=== PATIENT | female | born 1935 | race Caucasian/White ===

== ENCOUNTER 2020-01-03 11:01 | Inpatient (IN) | payer MEDICARE, OTHER, SELFPAY ==
[2019-11-11 13:47] VITALS: BMI 29.4
[2020-01-03] VITALS (16 sets, daily range): BP systolic 145–177; BP diastolic 61–92; PULSE 69–97; RESP 14–26; TEMP 36.8; O2SAT 92–99; BMI 31.4; BMI 30.2; BMI 30.3
--- NOTE | 2020-01-03 11:11 | RAD_ITS ---
STUDY: X-RAY CHEST REASON FOR EXAM: Female, 84 years old. STEMI code pt -- diagnosed with bronchitis on 12-30-19. CP started last night TECHNIQUE: Single AP portable view of the chest. COMPARISON: 04/28/2014 FINDINGS: The lungs are clear and expanded. There is no demonstrated pleural abnormality. Normal size heart. Normal mediastinum and puja. Normal visualized pulmonary arteries. Normal visualized aortic arch and descending thoracic aorta. Normal visualized thoracic spine. Normal visualized ribs, clavicles, and shoulders. There is no demonstrated abnormality of the visualized soft tissue structures of the upper abdomen. RAD/Chest 1 View (Portable) IMPRESSION: Normal x-ray examination of the chest. Electronically Signed: Kenney Bautista DO at 11:36 EST Tel , Service support ,
--- NOTE | 2020-01-03 11:11 | EKG12_ITS ---
Test Reason : CP Blood Pressure : / mmHG Vent. Rate : 075 BPM Atrial Rate : 075 BPM P-R Int : 170 ms QRS Dur : 110 ms QT Int : 442 ms P-R-T Axes : 077 062 -46 degrees QTc Int : 493 ms Normal sinus rhythm Incomplete right bundle branch block Inferior infarct , possibly acute ACUTE HI / STEMI Consider right ventricular involvement in acute inferior infarct Abnormal ECG Confirmed by JOSE RIVERA, JHONATAN ([id number]), editor department URIEL CUEVAS ([id number]) on 01/05/2020 10:12:26 AM Referred By: VERA Confirmed By:JHONATAN GARCIA MD
--- NOTE | 2020-01-03 11:12 | ED.DCSUM_ITS ---
History of Present Illness Chief Complaint: Chest Pain Informant: Patient Onset: Days Context: Gradual Onset Timing: Intermittent Current Severity: Mild Maximum Severity: Severe Narrative: The patient presents to the emergency department with chest pain. 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 She also has history of diabetes and and prior stroke. She states that she is had some upper respiratory illness for the past week. She was started on amoxicillin on Sunday. She states that she still had cough and some mild shortness of breath. Over the past 24 hours, she is began to have chest pain. She describes it as substernal and will radiate to both arms. She did use an albuterol inhaler yesterday which seemed to make her pain much worse. She states that now, she just has a very mild twinge in her central chest. She denies nausea. She states she is otherwise been in her normal state of health. Prior similar symptoms: No Recent Illness/Hospitalization: No Past Medical History - Allergies and Home Meds Allergies/Adverse Reactions: Allergies codeine Adverse Reaction (Verified 01/03/20 11:06) Nausea/Vom/Diarrhea Prior records reviewed: Yes Past Medical History: - - Diabetes, prior stroke, coronary vascular disease Surgical History: noncontributory Smoking Status: Never smoker Review of Systems General: Reports: Fever Eyes: Denies: Visual changes - bilaterally, Diplopia ENT: Denies: Rhinorrhea, Sore throat Cardiovascular: Reports: Chest pain Respiratory: Reports: Dyspnea, Cough Gastrointestinal: Reports: Nausea Genitourinary: Denies: Dysuria, Hematuria, Frequency Musculoskeletal: Denies: Back pain, Extremity Pain Skin: Denies: Rash, Wounds Neurological: Denies: Headache, Weakness, Numbness Physical Exam Vital Signs/Narrative: Vital Signs Temp Pulse Resp BP Pulse Ox 01/03/20 11:02 98.2 F 91 18 147/72 H 96 Inital Vital Signs reviewed: Yes General: Well nourished, Well developed, No Acute Distress Head: Normocephalic, Atraumatic Eyes: Perrl, EOMI ENT: Moist mucous membranes, No rhinorrhea Neck: Supple, Nontender Cardiovascular: Regular rate, Regular rhythm, No murmurs Respiratory: No distress, Chest nontender, Wheezing Abdomen: Soft, Nontender, Nondistended, Normal bowel sounds Back: Nontender, Normal Inspection Extremities: Nontender, No edema Skin: Normal color, No rash Neurological: Alert, Oriented x3, Cranial nerves II-XII grossly intact, Normal Strength, Normal Sensation Psychological: Normal affect, Normal Mood Diagnostic/Tx/Re-eval - Medical Decision Making EKG was obtained immediately on patient arrival. She only described her chest pressure as a 1. She does have inferior elevation with Q waves in 3 and aVF. There is also some reciprocal depression in the high lateral leads. The STEMI was activated immediately once I reviewed the EKG. STEMI protocol was instituted. The patient was given heparin, aspirin, and Brilinta. She rated her pain as a 2 out of 10, but given the inferior changes nitro was held. I was able to send the EKGs immediately to Dr. Noel, house painting instructor. He agrees with plan. The patient will be taken to the [facility] for diagnostic catheterization and potential intervention. The patient is agreeable with this plan of care. Impression 1. Acute ST elevation myocardial infarction - Critical Care Time Critical care time (excluding procedures): 30-74 minutes, Discussing w/Patient &/or Family/Inspector Bicycle, Discussing w/Consultants, Arranging Admission or Transfer, Performing Direct Patient Care at Bedside ED Disposition - Plan for ED Patient: Disposition: Acute Care Hospital [facility]
[2020-01-03] MEDS: TICAGRELOR 90 MG TABLET 180 MG PO (11:17)
[2020-01-03] MEDS: Heparin Injection (Vial) 5,000 UNIT/ML VIAL 4000 UNIT IV (11:17)
[2020-01-03] MEDS: Aspirin 81 MG TAB.CHEW 324 MG PO (11:17)
[2020-01-03 11:29] LABS: Absolute Lymphocyte Count 2.39 X10^3/uL (0.83-4.51); Absolute Neutrophil Count 6.2 X10^3/uL (2.0-7.7); Basophil# 0.03 X10^3/uL; Basophil% 0.3 % (0-1); Eosinophil# 0.02 X10^3/uL; Eosinophils% 0.2 % (0-5); Hematocrit 38.7 % (37-47); Hemoglobin 12.8 g/dL (12.0-15.0); Lymphocyte # 2.39 X10^3/ul (4.0); Lymphocyte % 26.3 % (19-41); Mean Corp Hgb Conc 33.1 g/dL (32-36); Mean Corpuscular Hgb 29.8 pg (27.0-32.0); Mean Corpuscular Volume 90.2 fL (81-99); Mean Platelet Vol. 11.1 fl (6.2-12.0); Monocyte# 0.48 X10^3/uL; Monocyte% 5.3 % (0-10); NRBC Flagged by Analyzer 0 % (0-5); Neutrophil # 6.15 X10^3/uL (2.7-7.7); Neutrophil % 67.7 % (47-70); Platelet Count 279 K/mm3 (150-450); RBC Distribution Width CV 13.2 % (11.6-14.6); RBC Distribution Width SD 43.9 fl (35.1-43.9); Red Blood Count 4.29 M/mm3 (4.2-5.4); White Blood Count 9.1 K/mm3 (4.4-11.0)
--- NOTE | 2020-01-03 11:30 | CM.ED ---
SOCIAL WORK REASON FOR REFERRAL: STEMI ALERT RESPONDED TO STEMI ALERT. INTRODUCED ROLE TO PATIENT'S SON-IN-LAW OUTSIDE OF ROOM. DAUGHTER IN ROOM WITH PATIENT AND NURSING. SUPPORT PROVIDED. WILL REMAIN AVAILABLE FOR NEEDS.
[2020-01-03 11:59] LABS: International Normalized Ratio 1.2; Prothrombin Time (Protime)PT. 14.7 SECONDS (11.7-14.9)
[2020-01-03 12:08] LABS: Anion Gap 9 (5-15); BUN 37 mg/dL (7-18); BUN/Creat Ratio 24.3 RATIO (10-20); Calcium,Total 9.1 mg/dL (8.5-10.1); Chloride 107 mmol/L (98-107); Creatinine, Serum 1.52 mg/dL (0.55-1.02); EST Glomerular Filtration Rate 35 mL/min (>60); Est Glom Filt Rate - Afr Amer 42 mL/min (>60); Estimated Creatinine Clearance 22.57 ml/min; Glucose 286 mg/dL (74-106); Sodium Level 139 mmol/L (136-145)
--- NOTE | 2020-01-03 12:50 | ECHOCS_ITS ---
Reason For Study: s/p OH Procedure This was a 2D Doppler, Color Flow transthoracic echocardiogram. The study was technically difficult. Contrast injection was performed. Exam performed portable in ICU/CCU. Left Ventricle Normal LV size. Moderate segmental systolic dysfunction (see wall motion). The estimated ejection fraction is 30 %. Diastolic function is indeterminate. Posterior-Basal: Hypokinetic. Infero-Basal: Akinetic. Basal inferoseptal: Akinetic. Mid-Anterior : Hypokinetic. Mid-Lateral : Hypokinetic. Mid- Posterior: Akinetic. Mid-Inferior: Akinetic. Mid-inferoseptal : Akinetic. Anterior Era : Hypokinetic. Inferior Era : Dyskinetic. Lateral Era : Hypokinetic. Septal Era : Dyskinetic. Right Ventricle Normal RV size. Normal systolic function. Atria The left atrium is mildly enlarged. Normal right atrium. No doppler evidence for ASD. Mitral Valve There is no mitral annular calcification. Normal mitral valve. Moderate (2+) mitral valve insufficiency. Tricuspid Valve Normal tricuspid valve. Trivial tricuspid valve insufficiency. Unable to estimate RV systolic pressure/pulmonary artery pressure due to technically difficult study. Aortic Valve Trisinus/trileaflet aortic valve. Mild focal aortic valve calcification. Pulmonic Valve The pulmonic valve is not well visualized. Great Vessels Normal sized aortic root. Pericardium/Pleural No pericardial effusion. Medication Diluted definity 6ml given slow IV push to enhance endocardial definition. MMode/2D Measurements & Calculations LVIDd: 4.4 cm IVSd: 1.0 cm Ao root diam: 2.6 cm LVIDs: 3.3 cm LVPWd: 0.85 cm RVDd: 2.1 cm FS: 25.7 % LAV(MOD-bp): 34.3 ml LVAd ap4: 24.7 cm2 SV(MOD-sp4): 25.3 ml LAV(MOD-bp) Indexed: 19.4 ml/m2 EDV(MOD-sp4): 73.3 ml LAV(MOD-sp2): 36.0 ml EDV(sp4-el): 74.6 ml LAV(MOD-sp4): 32.0 ml LVAs ap4: 18.2 cm2 ESV(MOD-sp4): 48.1 ml ESV(sp4-el): 50.1 ml EF(MOD-sp4): 34.5 % EF(sp4-el): 32.8 % SV(sp4-el): 24.4 ml LA A4 area: 13.6 cm2 LA dimension(2D): 3.7 cm RA A4 area: 9.5 cm2 Doppler Measurements & Calculations MV E max kyaw: 81.5 cm/sec Lat Peak E' Kyaw: 5.8 cm/sec Med Peak E' Kyaw: 4.1 cm/sec MV A max kyaw: 107.7 cm/sec E/E' lat: 14.0 E/E' med: 19.7 MV E/A: 0.76 Ao V2 max: 130.6 cm/sec LV V1 max: 94.1 cm/sec PA V2 max: 69.6 cm/sec Ao max P.8 mmHg LV V1 max P.5 mmHg Ao V2 mean: 84.5 cm/sec Ao mean P.2 mmHg Ao V2 VTI: 26.4 cm Interpretation Summary The study was technically difficult. Contrast injection was performed. Moderate segmental systolic dysfunction (see wall motion). The estimated ejection fraction is 30 %. The left atrium is mildly enlarged. Moderate (2+) mitral valve insufficiency. Trivial tricuspid valve insufficiency. Mild focal aortic valve calcification. Unable to estimate RV systolic pressure/pulmonary artery pressure due to technically difficult study. Diastolic function is indeterminate. Ordering Physician: Gomez Noel Referring Physician: Siena Warren Performed By: Myriam Hroton, MARIAH, RVT
--- NOTE | 2020-01-03 12:53 | CON.PCM_ITS ---
Reason for Consult Date of Consultation: 01/03/20 Reason for Consultation: ACS History of Present Illness: The patient presents to the emergency department with chest pain. Patient is an 84-year-old female with history of prior DC 30 years ago treated with angioplasty. She also has history of diabetes and and prior stroke. She states that she is had some upper respiratory illness for the past week. She was started on amoxicillin on Sunday. She states that she still had cough and some mild shortness of breath. Over the past 24-48 hours, she began to have chest pain. She describes it as substernal and will radiate to both arms. She did use an albuterol inhaler yesterday which seemed to make her pain much worse. She states that now, she just has a very mild twinge in her central chest. She denies nausea. She states she is otherwise been in her normal state of health. EKG done in the emergency room revealed Q waves in III and aVF along with ST elevation. It was felt that patient was presenting late with acute ST elevation DC but due to ongoing chest pain that was about 2/10 in intensity she was evaluated and brought emergently to the cardiac Clinical Interviewer for coronary angiography. Because of acute on chronic kidney disease LV gram was not done. Coronary angiography revealed multivessel coronary artery disease with MARTIN-3 flow in all the vessels. Review of systems: All systems reviewed. All else is negative except in HPI. Past Medical History Allergies/Adverse Reactions: Allergies codeine Adverse Reaction (Verified 01/03/20 11:06) Nausea/Vom/Diarrhea Home Medications: Ambulatory Orders Medication Instructions Recorded Allopurinol [Zyloprim] 100 mg PO DAILYCM 04/28/14 Amlodipine [Norvasc] 10 mg PO DAILY 04/28/14 Lisinopril [Zestril] 40 mg PO DAILY 04/28/14 Clopidogrel Bisulfate [Plavix] 75 mg PO DAILY #30 tab 05/12/14 Carvedilol 6.25 mg PO BID 01/03/20 Insulin Aspart [Novolog Flexpen units SUBCUT TIDCM 01/03/20 ([facility])] Insulin Glargine,Hum.rec.anlog 9 unit SQ DAILY 01/03/20 [Basaglar Kwikpen U-100] [place]-3 Fatty Acids/Fish Oil 2 ea PO DAILY 01/03/20 [[place] 3 1,000 mg Softgel] Past Medical History (Chronic Problems): Chronic Problems (Last Updated 11/11/19 @ 13:42 by Marika Lima) Intracranial meningioma (Chronic) HLD (hyperlipidemia) (Chronic) Type II diabetes mellitus (Chronic) Benign hypertension (Chronic) Surgical History: noncontributory Smoking Status: Former smoker Objective: Vital Signs Temp Pulse Resp BP Pulse Ox 98.2 F 77 20 H 152/87 H 98 01/03/20 11:02 01/03/20 11:38 01/03/20 11:38 01/03/20 11:38 01/03/20 11:38 Oxygen Flow Rate (L/min) 2 Oxygen Delivery Method Nasal Cannula Weight: 171 lb 15.369 oz Body Mass Index (BMI) 31.4 Finger Stick Blood Glucose 220 General: Awake, Alert, Oriented x 3 HEENT: Atraumatic Oral: Moist Mucosa Neck: Supple Lungs: - - Bibasal crackles. Coarse breath sounds bilaterally Cardiovascular: Regular Rhythm Abdomen: Soft Skin: No Rashes Psych/Mental Status: Appropriate 01/03/20 11:15: WBC 9.1, RBC 4.29, Hgb 12.8, Hct 38.7, MCV 90.2, MCH 29.8, MCHC 33.1, Plt Count 279, MPV 11.1, Immature Gran % (Auto) 0.200, Neut % (Auto) 67.7, Lymph % (Auto) 26.3, [place] % (Auto) 5.3, Eos % (Auto) 0.2, Baso % (Auto) 0.3, Absolute Neuts (auto) 6.2, Nucleated RBC % 0 01/03/20 11:15: PT Cancelled, INR Cancelled, APTT Cancelled 01/03/20 11:15: Sodium Cancelled, Potassium Cancelled, Chloride Cancelled, Carbon Dioxide Cancelled, Anion Gap Cancelled, BUN Cancelled, Creatinine Cancelled, Est GFR (MDRD) Af Amer Cancelled, Est GFR (MDRD) Non-Af Cancelled, BUN/Creatinine Ratio Cancelled, Glucose Cancelled, Calcium Cancelled, Troponin I Cancelled 01/03/20 11:41: PT 14.7, INR 1.2, APTT 181.0 H* 01/03/20 11:41: Sodium 139, Potassium 4.0, Chloride 107, Carbon Dioxide 23.0, Anion Gap 9, BUN 37 H, Creatinine 1.52 H, Est GFR (MDRD) Af Amer 42 L, Est GFR (MDRD) Non-Af 35 L, BUN/Creatinine Ratio 24.3 H, Glucose 286 H, Calcium 9.1, Troponin I 4.620 H* Rhythm: EKG: ECHO: Stress Test: Cardiac Cath: PCI: CT Surgery: Holter monitor: EPS: PPM: CXR: Chest CT Scan: Assessment/Plan 1. Acute coronary syndrome: EKG was suggestive of late presentation ST elevation DC. There is MARTIN-3 flow in all of patient's coronary arteries with multivessel obstructive coronary artery disease. Troponin was 4.6. Due to the location of the stenoses and the fact that there is MARTIN-3 flow in all the vessels we felt that patient will be better served with CABG rather than multivessel PCI unless the CT surgeon feels that patient is at prohibitive risk. At this point it will be reasonable to treat her medically and transfer her to a center that has an open heart surgery program. Patient did get Brilinta in the emergency room. Plavix is listed as medication that she is on. We will keep her on aspirin and add a statin. She is already on a beta-shravan and an ISABELLA inhibitor. 4 hours after the TR band is off she should be started on a weight-based heparin drip. 2. Shortness of breath: Patient has orthopnea. We are checking a 2D echo. I will give her 1 dose of Lasix IV as she has crackles. We will be cautious because of her acute on chronic kidney insufficiency. She may need nebulizers and treatment of her bronchitis as well. We will request the hospitalist service help for this.
[2020-01-03] MEDS: Furosemide 40 MG/4 ML Vial IV (13:20)
--- NOTE | 2020-01-03 13:23 | CL.D_ITS ---
Patient Name: CONCHA WOODWARD I Study Date: 01/03/2020 Performing: Maty Noel MD Ht: 62 inches 157 cm : 1935 Wt: 172.2 lbs 78 kg Age: 84 Gender: female BSA: 1.79 PROCEDURE(S) PERFORMED [id number] CLINICAL PROFILE AND INDICATIONS Indications: ACS > 24 hrs Heart Failure: None Stress/Imaging Stress/Image Study Performed: No CAD Presentations: STEMI. Symptom onset Date/Time: 01/01/20 Time Not Available CONCLUSIONS Multivessel CAD RECOMMENDATIONS 2D Echo and Surgery consult for coronary revascularization DESCRIPTION OF PROCEDURE The patient arrived to the procedure lab. The risks and benefits of the procedure as well as a full d escription of our services here and current unavailability of surgical backup were fully explained to the patient and/or their significant other prior to the catheterization. The Timeout was completed, verifying the correct patient and procedure. The patient's procedural site was prepped and draped in the usual fashion. Local anesthetic was given subcutaneously to right radial region with Lidocaine 2% . Using a modified Seldinger technique, arterial access was obtained via the right radial artery, a 6 Fr sheath was inserted. Left Coronary Artery selective angiography was performed in multiple views u sing a 5 Fr. JL3.5 catheter. Right Coronary Artery selective angiography was then performed in multip le views using a 6 Fr. JR 4 guide catheter.The arterial sheath was pulled and a TR Band was applied f or hemostasis CORONARY ANGIOGRAPHY DOMINANCE: Right Dominant LEFT HEART ASSESSMENT Left Ventricular Ejection Fraction: Not assessed LEFT MAIN: 30 % Stenosis LEFT ANTERIOR DESCENDING ARTERY: OSTIAL LAD: 80 % Stenosis MID LAD: 60-70 % Stenosis CIRCUMFLEX ARTERY: OSTIAL CIRC: 70 % Stenosis MID CIRC: 80 % Stenosis RIGHT CORONARY ARTERY: PROX RCA: 80 % Stenosis DISTAL RCA: 80-90 % Stenosis RT PLV: 80-90 % Stenosis COMPLICATIONS No Complications PROCEDURE MEDICATIONS Versed 1 mg IV Fentanyl 50 mcg IV Oxygen: 2 L/min via nasal cannula Heparin given IA 01/03/2020 12:16:01 Verapamil 2.5mg, Ntg 100mcgs, 3000 units of Heparin given IA 01/03/2020 12:16:01 IV Bolus: .9 NaCl 200 ml total given in ER 01/03/2020 12:48:05 SUMMARY OF HEMODYNAMIC DATA Time AIR REST ECG 11:59:15 AO 136/73 (102) SA 12:17:12 Signed By Maty Noel MD On 01/03/2020 13:22:07 Maty Noel MD
[2020-01-03 15:06] LABS: Bedside Glucose 190 mg/dL (70-110)
--- NOTE | 2020-01-03 15:13 | PCM.HP.STD ---
Problem List (1) Chest pain Status: Acute Qualifiers: Chest pain type: precordial pain Qualified Code(s): R07.2 - Precordial pain History of Present Illness Date of Admission: 01/03/20 Chief Complaint: Chest pain The patient is a 84 year old F who was seen at [facility] after being brought in with complaints of precordial chest pain which radiated into both arms. She described the pain as an ache in nature she did not have any nausea or diaphoresis. This pain started last night at rest and continued today. On arrival to the emergency room, performed which showed a STEMI-there was inferior wall ST elevations along with T wave inversions. Patient was taken to the Parts Clerk, catheterization showed multivessel coronary disease without any evidence of total occlusion. It was felt that the patient would not be amendable to intervention here and she would need to be transferred for an eventual coronary artery bypass. Patient was admitted to ICU in stable condition. Further note: Troponin was elevated at 4.62, creatinine was elevated at 1.52, BUN was elevated at 37. Patient's chest x-ray was unremarkable Past Medical History Past Medical History (Chronic Problems): Chronic Problems (Last Updated 11/11/19 @ 13:42 by Marika Lima) Intracranial meningioma (Chronic) HLD (hyperlipidemia) (Chronic) Type II diabetes mellitus (Chronic) Benign hypertension (Chronic) Medical History: Medical History (Last Updated 11/11/19 @ 13:42 by Marika Lima) Diabetes E11.9 Hypertension I10 Allergies codeine Adverse Reaction (Verified 01/03/20 11:06) Nausea/Vom/Diarrhea Home Medications: Ambulatory Orders Medication Instructions Recorded Allopurinol [Zyloprim] 100 mg PO DAILYCM 04/28/14 Amlodipine [Norvasc] 10 mg PO QHS 04/28/14 Lisinopril [Zestril] 40 mg PO DAILY 04/28/14 Clopidogrel Bisulfate [Plavix] 75 mg PO DAILY #30 tab 05/12/14 Amoxicillin 875 mg PO BID 01/03/20 Carvedilol 6.25 mg PO BID 01/03/20 Insulin Aspart [Novolog Flexpen units SUBCUT TIDCM 01/03/20 ([facility])] Insulin Glargine,Hum.rec.anlog 9 unit SQ DAILY 01/03/20 [Basaglar Kwikpen U-100] [place]-3 Fatty Acids/Fish Oil 1 ea PO DAILY 01/03/20 [[place] 3 1,000 mg Softgel] Surgical History: Surgical History (Last Updated 11/11/19 @ 13:42 by Marika Lima) FH: cholecystectomy Z83.79 tubal Surgical History: cataract, cholecystectomy, - - Past history of coronary artery angioplasty, surgery for tubal Psychiatric History: No pertinent psych hx 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 Denies: Claudication, Chest Pressure, Chest Tightness, Edema, Heaviness, Orthopnea, Palpitations, Paroxysmal Noc. Dyspnea Respiratory: Denies: Cough, Hemoptysis, Pleuritic Pain, Shortness of Breath, Shortness of breath at rest, Shortness of breath upon exertion, Sputum production Gastrointestinal: Denies: Abdominal Pain, Constipation, Diarrhea, Hematemesis, Hematochezia, Nausea, Melena, Vomiting Genitourinary: Denies: Dysuria, Frequency, Hematuria, Hesitancy, Incontinence, Nocturia, Urgency Gynecological: Denies: Breast symptoms Musculoskeletal: Denies: Joint Pain, Joint stiffness, Joint swelling Skin: Denies: Dryness, Pruritis, Rash Neurological: Denies: Balance problems, Blurred vision, Double vision, Slurred speech, Difficulty swallowing, Focal weakness, Headaches, Incoordination, Numbness, Tingling Psychiatric: Denies: Anxiety, Depression, Homicidal Ideations, Suicidal Ideations Endocrine: Denies: Change in Body Habitus, Heat/ Cold Intolerance, Polydipsia, Polyuria Hematologic/ Lymphatic: Denies: Adenopathy, Anemia, Easy Bruising, Easy Bleeding, Petechiae, Purpura VTE Information - Inpt Only VTE Present on Admission: No VTE Mechan Device Prophylaxis: None VTE Pharm Prophylaxis ordered?: No Reason prophylaxis not ordered:: Treatment Not Indicated Patient Problems: Active and Suspected Problems (Last Updated 11/11/19 @ 13:42 by Marika Lima) Chest pain (Acute) - Physical Exam Vitals/I&O's: Vital Signs Temp Pulse Resp BP Pulse Ox 98.2 F 80 18 170/84 H 97 01/03/20 11:02 01/03/20 14:45 01/03/20 14:45 01/03/20 14:45 01/03/20 14:45 Oxygen Flow Rate (L/min) 2 Oxygen Delivery Method Nasal Cannula Weight: 75.1 kg Body Mass Index (BMI) 30.2 Finger Stick Blood Glucose 220 General: Alert, Oriented x3, Cooperative, No apparent distress, Well developed, Well nourished HEENT: Atraumatic, PERRLA, EOMI, Normocephalic Oral: Moist Mucosa Neck: Supple, No JVD, Negative Carotid Bruits, Trachea Midline, Thyroid Normal Size and Texture Lungs: Clear to auscultation, Normal air movement, No rhonchi, No rales, Wheezes - expiratory wheezes were noted bilaterally Cardiovascular: Regular rate, Regular Rhythm, Normal S1, Normal S2, No murmurs, PMI Normal, No rub noted, No Gallop Abdomen: Bowel Sounds Present, Soft, Non Tender, Non-Distended Extremities: No clubbing, No cyanosis, No edema, Capillary Refill Less than 3 Seconds Skin: No rashes, No breakdown Musculoskeletal: No Tenderness to Palpation of Joints or Extremities Neurological: Cranial nerves II-XII grossly intact, Neuro grossly intact, Sensory exam intact to light touch and pain, Coordination normal Psych/Mental Status: Normal Affect, Appropriate, Alert and oriented to time, place, person, mood and affect Laboratory Results 01/03/20 11:15: WBC 9.1, RBC 4.29, Hgb 12.8, Hct 38.7, MCV 90.2, MCH 29.8, MCHC 33.1, RDW Std Deviation 43.9, RDW Coeff of [place]an 13.2, Plt Count 279, MPV 11.1, Immature Gran % (Auto) 0.200, Neut % (Auto) 67.7, Lymph % (Auto) 26.3, [place] % (Auto) 5.3, Eos % (Auto) 0.2, Baso % (Auto) 0.3, Absolute Neuts (auto) 6.2, Absolute Lymphs (auto) 2.39, Nucleated RBC % 0 01/03/20 11:15: PT Cancelled, INR Cancelled, APTT Cancelled 01/03/20 11:15: Sodium Cancelled, Potassium Cancelled, Chloride Cancelled, Carbon Dioxide Cancelled, Anion Gap Cancelled, BUN Cancelled, Creatinine Cancelled, Estim Creat Clear Calc Cancelled, Est GFR (MDRD) Af Amer Cancelled, Est GFR (MDRD) Non-Af Cancelled, BUN/Creatinine Ratio Cancelled, Glucose Cancelled, Calcium Cancelled, Troponin I Cancelled 01/03/20 11:15: Serum , Qual Cancelled 01/03/20 11:41: PT 14.7, INR 1.2, APTT 181.0 H* 01/03/20 11:41: Sodium 139, Potassium 4.0, Chloride 107, Carbon Dioxide 23.0, Anion Gap 9, BUN 37 H, Creatinine 1.52 H, Estim Creat Clear Calc 22.57, Est GFR (MDRD) Af Amer 42 L, Est GFR (MDRD) Non-Af 35 L, BUN/Creatinine Ratio 24.3 H, Glucose 286 H, Calcium 9.1, Troponin I 4.620 H* 01/03/20 14:54: POC Glucose 190 H Current Medications Acetaminophen (Tylenol) 650 mg PO Q6H PRN PRN PRN Reason: MILD PAIN 1-3 Hydrocodone Bitart/Acetaminophen ([place] 5mg-325mg) 1 - 2 tablet PO Q6H PRN PRN PRN Reason: MODERATE PAIN 4-5 Allopurinol (Zyloprim) 100 mg PO DAILYCM [facility] Amlodipine Besylate (Norvasc) 10 mg PO DAILY [place] Aspirin (Ecotrin) 81 mg PO DAILY@0800 [place] Atorvastatin Calcium (Lipitor) 40 mg PO QHS [facility] Atropine Sulfate () 0.5 mg IV UD PRN PRN Reason: HR <50 bpm Carvedilol (Coreg) 6.25 mg PO BID [place] Carvedilol (Coreg) 6.25 mg PO NOW STA Stop: 01/03/20 15:12 Heparin Sodium (Beef Lung) (Heparin 500 Unit/5 Ml (100/Ml)) 500 unit IV UD PRN PRN Reason: HEPARIN FLUSH Insulin Human Lispro (Humalog Kwikpen (Bkc)) 0 unit SC ACHS [facility]; Protocol Labetalol HCl (Trandate) 5 mg IV X1 PRN PRN Reason: SBP > 160 when pulling sheath Lisinopril (Zestril) 40 mg PO DAILY [place] Morphine Sulfate () 4 mg IV Q3H PRN PRN PRN Reason: SEVERE PAIN 6-10 Sodium Chloride () 500 ml IV BOLUS PRN PRN Reason: VASO-VAGAL PROTOCOL Sodium Chloride () 10 - 40 ml IV UD PRN PRN Reason: SALINE FLUSH Assessment/Plan All Active Problems (Last Updated 11/11/19 @ 13:42 by Marika Lima) Chest pain (Acute) Pain (Acute) Constipation due to pain medication (Acute) Gout (Acute) Basal ganglia infarction (Acute) Vertigo (Acute) Physical debility (Acute) #1 acute STEMI-inferior wall-patient was admitted to the ICU after her cardiac catheterization, she will need transfer to a tertiary facility for further care. Echocardiogram was ordered to assess LV function. #2 type 2 diabetes-blood sugars will be monitored, sliding scale insulin will be used #3 essential hypertension #4 cerebrovascular disease-patient relates to past history of stroke with left lower extremity weakness #5 chronic kidney disease stage III-probably secondary to type 2 diabetes #6 acute bronchitis-type unknown, rapid flu test was ordered for the patient Code Visit Inpatient E&M: 78832 Init Hosp L3
[2020-01-03] MEDS: Carvedilol 6.25 MG Tablet PO (15:37)
--- NOTE | 2020-01-04 13:28 | PCM.DC.SUM ---
Discharge Date and Diagnosis Date of Admission: 01/03/20 Date of Discharge: 01/03/20 - Primary Discharge Diagnosis #1 ST elevation NJ #2 occlusive coronary artery disease #3 essential hypertension #4 type 2 diabetes - Secondary Discharge Diagnosis Chronic Problems (Last Updated 11/11/19 @ 13:42 by Marika Lima) Intracranial meningioma (Chronic) HLD (hyperlipidemia) (Chronic) Type II diabetes mellitus (Chronic) Benign hypertension (Chronic) Hospital Course and Treatment Operations: None Procedures: 2-D Echocardiogram, Cardiac catheterization Summary of Care Provided: The patient is a 84 year old F who was seen in the emergency room at [facility] with a chief complaint of chest pain that started the night before. Pain was substernal and radiated into both arms. On arrival to the emergency room, an EKG was obtained which showed the presence of an acute ST elevation NJ in the inferior wall. A STEMI alert was called, she was taken to the Guard Driver and there was noted to be extensive triple-vessel occlusive coronary disease, no evidence of thrombus was noted to be present. The laminating machine offbearer felt that the patient would not be a candidate for acute intervention at this facility. Echocardiogram was obtained which showed an EF of 30% with multiple areas of akinesia and dyskinesia. Patient was admitted to the ICU and I asked the patient's family what hospital they would prefer to be transferred and they picked [facility]. I called [facility] and they had a bed available and the patient was transferred in stable condition on 01/03/2020 for further care. On 01/03/2020, patient was seen and examined: On examination she appeared in good health and spirits. Vital signs as documented. Skin warm and dry and without overt rashes. Neck without JVD. Lungs clear. Heart exam notable for regular rhythm, normal sounds and absence of murmurs, rubs or gallops. Abdomen unremarkable and without evidence of organomegaly, masses, or abdominal aortic enlargement. Extremities nonedematous. Neuro: Cranial nerves II through XII are grossly intact, no focal motor deficits were noted, sensation to light touch and pinprick is intact. Psych: Patient is alert and oriented x3, she does not appear anxious or depressed Patient was transferred to [facility] in stable condition on 01/03/2020 - Physical Exam Vitals/I&O's: Vital Signs Temp Pulse Resp BP Pulse Ox 98.2 F 97 14 150/92 H 99 01/03/20 11:02 01/03/20 16:00 01/03/20 16:00 01/03/20 16:00 01/03/20 16:00 Oxygen Flow Rate (L/min) 2 Oxygen Delivery Method Nasal Cannula Weight: 75.1 kg Body Mass Index (BMI) 30.2 Finger Stick Blood Glucose 220 Microbiology Past 72 Hours 01/03/20 15:15 Mucosa - Nose Influenza Types A,B Direct FA (ROSARIO) - Final Laboratory Results 01/03/20 14:54: POC Glucose 190 H Home Medications: Medications to take at Discharge Allopurinol [Zyloprim] 100 mg PO DAILYCM 04/28/14 Amlodipine [Norvasc] 10 mg PO QHS 04/28/14 Lisinopril [Zestril] 40 mg PO DAILY 04/28/14 Clopidogrel Bisulfate [Plavix] 75 mg PO DAILY #30 tab 05/12/14 Amoxicillin 875 mg PO BID 01/03/20 Carvedilol 6.25 mg PO BID 01/03/20 Insulin Aspart [Novolog Flexpen (BKC)] units SUBCUT TIDCM 01/03/20 Insulin Glargine,Hum.rec.anlog [Basaglar Kwikpen U-100] 9 unit SQ DAILY 01/03/20 [place]-3 Fatty Acids/Fish Oil [[place] 3 1,000 mg Softgel] 1 ea PO DAILY 01/03/20 Primary Care Physician: Siena Warren MD [Primary Care Provider] - Disposition: Acute care Hospital Minutes spent on discharge:: 31 Patient Condition:: Stable Medical Necessity - Tobacco Use Smoking Status: Former smoker Tobacco Use: Non-smoker Meaningful Use Info Meaningful Use Diagnoses (Choose all that apply): AMI - AMI/Post PCI/Angioplasty Aspirin given w/in 24hrs of arrival?: Yes ASA at discharge?: Yes Antiplatelet Therapy at Discharge:: Yes Statins at discharge?: Yes Sen/ARB at discharge?: Yes Beta Lisy at discharge?: Yes Done w/ Acute [place] measure.: Yes Documented LVEF (%): 30 Code Visit OBSV E&M: [id number] Observ/hosp same date L3
--- NOTE | 2020-01-05 08:17 | CRPHASE1 ---
Patient Communication Choice Letter Given to Patient:: Yes Guide to Cardiac Rehab Given by ICU Staff Prior to Discharge: Yes Guide to Cardiac Rehab Mailed to Patient by CR Staff:: Yes Patient Contacted Post Discharge by CR Staff:: Yes Cardiac Rehabilitation Info Cardiac Rehabilitation Program Information: Cardiac Rehabilitation is important for patients like you who are recovering from a heart problem. Cardiac rehabilitation programs are recognized as integral to the continued care of the patient with coronary heart disease. The cardiac rehabilitation program is designed to optimize a patient's physical, psychological, and social functioning. Health health care analyst work in cardiac rehabilitation programs and assist you with getting the treatments you need to get stronger and healthier - like exercise, healthy eating habits, and medications. Cardiac rehabilitation has been show to help people with heart problems live longer and have better life enjoyment than people who do not go to cardiac rehabilitation. Please contact the Cardiac Rehabilitation Program at [facility] at in two weeks if you have not heard from them.
--- NOTE | 2020-01-05 08:19 | CRPH1.INSTRU ---
General Education CAD and cardiac anatomy and function:: Not instructed Explanation of diagnoses and procedures:: Not instructed Sign/Symptoms of KS:: Not instructed Antiplatelet therapy: Not instructed Proper use of NTG-SL: Not instructed Emergency procedures and activation of EMS: Not instructed Compliance of all prescribed medications: Not instructed - booklet given by ICU staff prior to discharge
== END 2020-01-03 16:40 | disposition short-term general hospital (02) | DRG 282 ==
LOC: ED 11:22 → ICU 11:55
PROVIDERS: Admitting Provider Internal Medicine; Emergency Provider Emergency Medicine; PCP Internal Medicine; Visit Provider Specialist
DX: I21.19 ST elevation (STEMI) myocardial infarction involving other coronary artery of inferior wall (principal); I25.10 Atherosclerotic heart disease of native coronary artery without angina pectoris; E78.5 Hyperlipidemia, unspecified; J20.9 Acute bronchitis, unspecified; N18.3 Chronic kidney disease, stage 3 (moderate); E11.22 Type 2 diabetes mellitus with diabetic chronic kidney disease; I12.9 Hypertensive chronic kidney disease with stage 1 through stage 4 chronic kidney disease, or unspecified chronic kidney disease; I69.344 Monoplegia of lower limb following cerebral infarction affecting left non-dominant side; I25.2 Old myocardial infarction; Z79.02 Long term (current) use of antithrombotics/antiplatelets; Z87.891 Personal history of nicotine dependence; Z98.61 Coronary angioplasty status; Z79.4 Long term (current) use of insulin
CPT/HCPCS: 71045; 80048; 82962; 84484; 85025; 85610; 85730; 87804; 93005; 93306; 93454; 97802; 99152; 99153; 99285; J7030; Q9957; A4216; C1769; C1887; C1894; C8929; J1940; Q9967

== ENCOUNTER 2020-01-17 11:41 | Inpatient (IN) | payer MEDICARE, OTHER, SELFPAY ==
[2020-01-03 13:11] VITALS: BMI 30.2
[2020-01-17 11:52] VITALS: BP 131/66; PULSE 70; RESP 18; TEMP 36.5; O2SAT 96; BMI 32.1; BMI 32.2
--- NOTE | 2020-01-17 12:08 | PCM.HP.STD ---
Problem List (1) CHF (congestive heart failure) Status: Acute Qualifiers: Heart failure type: systolic (2) Ischemic cardiomyopathy Status: Acute Comment: 30% EF (3) History of left heart catheterization Status: Acute Comment: 01/03/[address] Noel at [facility] (4) Constipation due to pain medication Status: Resolved (5) Gout Status: Chronic (6) Basal ganglia infarction Status: Chronic Comment: 2013 (7) Intracranial meningioma Status: Chronic Comment: And incidental finding on 10/19/2008 of ventromedial foramen magnum meningioma measuring 1.2 cm with no surrounding neural compression (8) HLD (hyperlipidemia) Status: Chronic (9) Type II diabetes mellitus Status: Chronic Qualifiers: Diabetes mellitus senior living insulin use: with continuous churn buttermaker use Chronic kidney disease stage: stage 3 (moderate) Comment: also with CAD and hx of carotid stenosis and CVA (10) Physical debility Status: Acute Comment: due to CABG and STEMI with ischemic CM and acute on chronic RF stage III (11) Benign hypertension Status: Chronic (12) S/P CABG x 4 Status: Chronic Comment: 01/09/20 at [facility] by Dr. Ortiz (13) Diverticulosis Status: Chronic (14) Internal hemorrhoids Status: Chronic (15) H/O angioplasty Status: Chronic Comment: 1988 (16) Nonrheumatic mitral valve regurgitation Status: Chronic Comment: Moderate (17) Mild atrial enlargement, left Status: Chronic (18) Benign paroxysmal positional vertigo Status: Chronic (19) Chronic renal failure, stage 3 (moderate) Status: Chronic (20) Acute blood loss anemia Status: Acute Comment: after CABG (21) Thrombocytopenia Status: Resolved (22) Decubitus ulcer, stage II Status: Acute Qualifiers: Pressure injury location: buttock Laterality: right Qualified Code(s): L89.312 - Pressure ulcer of right buttock, stage 2 (23) Carotid stenosis, right Status: Chronic Comment: 40 to 59% (24) Paroxysmal atrial fibrillation with RVR Status: Resolved Comment: on amiodarone (25) Acute renal failure superimposed on stage 3 chronic kidney disease Status: Acute Comment: due to ATN post-op. Had intraoperative hypotension (26) STEMI (ST elevation myocardial infarction) Status: Chronic Comment: increased enzymes 01/03/20 - late presentation of STEMI with ACS/ongoing pain (27) Bilateral renal cysts Status: Chronic History of Present Illness Date of Admission: 01/17/20 Chief Complaint: debility due to recent STEMI, CABG X4, acute on chronic kidney injury, CHF, AF with RVR, ischemic CM The patient is a 84 year old F with a past medical history of hypertension, hyperlipidemia, diabetes mellitus type 2, gout, multivessel coronary artery disease, CABG x4 on 01/09/2020 at [facility], atrial fibrillation with rapid ventricular response post CABG (resolved), diverticulosis, internal hemorrhoids, right carotid stenosis, intracranial meningioma of ventromedial foramen magnum, ischemic cardiomyopathy with a 30% EF, mild left atrial enlargement, chronic renal failure stage III, stage II decubitus ulcer on the right buttock, renal cysts, STEMI the last week of December 2019, moderate MR and acute blood loss anemia post CABG who is admitted to the IPRU at [facility] on 01/17/2020 with debility due to recent CABG for > 3 hours of therapy daily to restore her at or near her prior level of function. Prior to STEMI and subsequent CABG she was walking without an AD and was independent with ADL's and driving. She was admitted to [facility] on 01/03/20 for ACS....due to recent STEMI ( was not seen at the time of the STEMI...she did not present to the ED until after and CE's were on the way down. She had Q waves in the inferior leads and still had ST elevation in the inferior leads. She had an emergent cardiac catheterization done by Dr. Farr and this showed: LEFT HEART ASSESSMENT Left Ventricular Ejection Fraction: Not assessed LEFT MAIN: 30 % Stenosis LEFT ANTERIOR DESCENDING ARTERY: OSTIAL LAD: 80 % Stenosis MID LAD: 60-70 % Stenosis CIRCUMFLEX ARTERY: OSTIAL CIRC: 70 % Stenosis MID CIRC: 80 % Stenosis RIGHT CORONARY ARTERY: PROX RCA: 80 % Stenosis DISTAL RCA: 80-90 % Stenosis RT PLV: 80-90 % Stenosis Post cath she went to the ICU and on 01/04/20 she was transferred to [facility] to be considered for CABG. The CABG could not be done immediately because she had been loaded with Brilinta prior to Cardiac Cath at [facility]. She had CABG X 4 vessels on 01/09/[address] Ortiz. Post-op complications included acute on CRF, AF with RVR, acute systolic CHF, thrombocytopenia and acute blood loss anemia. The creat has started to come down and the thrombocytopenia has resolved. Her only complaints at the time of admission to the rehab unit is pain in the right buttock, decreased appetite and insomnia. Past Medical History Past Medical History (Chronic Problems): Chronic Problems (Last Reviewed 01/17/20 @ 13:[address] Tonja Marshall DO) S/P CABG x 4 (Chronic) 01/09/20 at [facility] by Dr. Ortiz Diverticulosis (Chronic) Internal hemorrhoids (Chronic) H/O angioplasty (Chronic) 1988 Nonrheumatic mitral valve regurgitation (Chronic) Moderate Mild atrial enlargement, left (Chronic) Benign paroxysmal positional vertigo (Chronic) Chronic renal failure, stage 3 (moderate) (Chronic) Carotid stenosis, right (Chronic) 40 to 59% STEMI (ST elevation myocardial infarction) (Chronic) increased enzymes 01/03/20 - late presentation of STEMI with ACS/ongoing pain Bilateral renal cysts (Chronic) Gout (Chronic) Basal ganglia infarction (Chronic) 2013 Intracranial meningioma (Chronic) And incidental finding on 10/19/2008 of ventromedial foramen magnum meningioma measuring 1.2 cm with no surrounding neural compression HLD (hyperlipidemia) (Chronic) Type II diabetes mellitus (Chronic) also with CAD and hx of carotid stenosis and CVA Benign hypertension (Chronic) Medical History: Medical History (Last Reviewed 01/17/20 @ 14:[address] Tonja Marshall DO) Diabetes E11.9 Hypertension I10 Allergies codeine Adverse Reaction (Verified 01/03/20 11:06) Nausea/Vom/Diarrhea Prednisone - nausea Bactrim - nausea Home Medications: Ambulatory Orders Medication Instructions Recorded Allopurinol [Zyloprim] 100 mg PO DAILYCM 04/28/14 Amlodipine [Norvasc] 10 mg PO QHS 04/28/14 Amoxicillin 875 mg PO BID 01/03/20 Carvedilol 6.25 mg PO BID 01/03/20 Insulin Glargine,Hum.rec.anlog 11 unit SQ DAILY 01/03/20 [Basaglar Kwikpen U-100] Hammond-3 Fatty Acids/Fish Oil 1 ea PO DAILY 01/03/20 [Hammond 3 1,000 mg Softgel] Albuterol Aerosols [Ventolin 2.5 mg INHALATION Q4H PRN PRN 01/17/20 Aerosols] Amiodarone HCl [Cordarone] 200 mg PO DAILY 01/17/20 Aspirin 81 mg PO DAILY 01/17/20 Atorvastatin Calcium [Lipitor] 40 mg PO QHS 01/17/20 Calcium Carbonate/Vitamin D3 1 ea PO DAILY 01/17/20 [Calcium 600 + Vit D Tablet] Clopidogrel Bisulfate [Plavix] 75 mg PO DAILY 01/17/20 CycloSPORINE Ophthalmic [Restasis 1 drp EACH EYE BID 01/17/20 Ophthalmic] Guaifenesin [Mucinex] 600 mg PO BID PRN 01/17/20 Insulin Aspart [Novolog Flexpen 6 units SUBCUT DAILY@1200 01/17/20 ([facility])] Insulin Aspart [Novolog Flexpen 8 units SUBCUT DAILY@0730 01/17/20 ([facility])] Insulin Aspart [Novolog Flexpen 8 units SUBCUT DAILY@1700 01/17/20 ([facility])] Lidocaine [Lidoderm] 1 ea TP DAILY 01/17/20 Magnesium Oxide [Mag-Ox 400] 400 mg PO DAILY 01/17/20 Metoprolol Succinate [Toprol Xl] 100 mg PO DAILY 01/17/20 Mineral Oil/Petrolatum,White 1 applicatio TOPICAL QHS 01/17/20 [Systane Nighttime Eye Oint] Polyethylene Glycol 3350 [Miralax] 17 gm PO DAILY PRN 01/17/20 Sennosides [Senna] 2 tab PO DAILY 01/17/20 Torsemide [Demadex] 10 mg PO DAILY 01/17/20 Tramadol HCl [Ultram] 50 mg PO Q6H PRN 01/17/20 Surgical History: Surgical History (Last Reviewed 01/17/20 @ 14:[address] Tonja Marshall, DO) History of left heart catheterization (Acute) Z98.890 01/03/[address] Noel at [facility] FH: cholecystectomy Z83.79 tubal Surgical History: cataract, cholecystectomy, coronary bypass surgery, - - Past history of coronary artery angioplasty, surgery for tubal Psychiatric History: No pertinent psych hx PUBLIC RELATIONS INTERN History: No pertinent PUBLIC RELATIONS INTERN history Lives: Spouse/ Significant Other Smoking Status: Never smoker Tobacco Use: Non-smoker Alcohol: None Drugs: None - *Family History Paternal History Items: Heart Disease Maternal History Items: Diabetes - And a maternal uncle, Heart Disease Sibling History Items: Cancer - Cancer of the mouth and her brother who was a non-smoker Review of Systems Constitutional: Reports: Anorexia, Weakness, Fatigue. Denies: Chills, Fever Eyes: Denies: Blurred vision HEENT: Denies: Difficulty Hearing, Difficulty Swallowing, Head Aches, Nasal Congestion, Sore Throat Cardiovascular: Reports: Chest Pain - incisional pain only. Denies: Claudication, Edema, Light Headedness, Orthopnea, Palpitations, Paroxysmal Noc. Dyspnea Respiratory: Reports: Cough - rare. Denies: Hemoptysis, Pleuritic Pain, Shortness of Breath, Sputum production Gastrointestinal: Reports: - - loose stool ...has been on senna twice daily. Denies: Abdominal Pain, Nausea, Vomiting Genitourinary: Reports: Incontinence - stress. Denies: Dysuria Gynecological: Denies: Breast symptoms, Vaginal discharge Musculoskeletal: Denies: Arm Pain, Leg Pain Skin: Reports: Wounds - due to recent CABG and harvest of Saphenous vein and to stage II decubitus ulcer on the right buttock. Denies: Jaundice Neurological: Denies: Slurred speech, Confusion, Difficulty swallowing, Focal weakness, Headaches, Tremor, Seizures Psychiatric: Denies: Anxiety, Depression Endocrine: Denies: Hx of Thyroiditis Hematologic/ Lymphatic: Denies: Hx of blood clot VTE Information - Inpt Only VTE Present on Admission: No VTE Mechan Device Prophylaxis: Knee High RADHA Hose VTE Pharm Prophylaxis ordered?: Yes Patient Problems: Active and Suspected Problems (Last Reviewed 01/17/20 @ 13:[address] Tonja Marshall, DO) CHF (congestive heart failure) (Acute) Ischemic cardiomyopathy (Acute) 30% EF Acute blood loss anemia (Acute) after CABG Decubitus ulcer, stage II (Acute) Acute renal failure superimposed on stage 3 chronic kidney disease (Acute) due to ATN post-op. Had intraoperative hypotension - Physical Exam Vitals/I&O's: Body Mass Index (BMI) 30.2 Finger Stick Blood Glucose 220 General: Alert, Oriented x3, Cooperative, No apparent distress, Well developed, Well nourished HEENT: Atraumatic, PERRLA, EOMI, Normocephalic Oral: No Gingival or Mucosal Lesions/ Ulcerations, Dry Mucosa Neck: Supple, No JVD, Negative Carotid Bruits, No Nodes, Trachea Midline Lungs: Clear to auscultation, Normal air movement, No rhonchi, No wheeze, No rales Cardiovascular: Regular rate, Regular Rhythm, Normal S1, Normal S2, No rub noted, No Gallop Abdomen: Bowel Sounds Present, Soft, Non Tender, Non-Distended Extremities: No clubbing, No cyanosis, No edema, Capillary Refill Less than 3 Seconds, No Calf Tenderness, Peripheral Pulses Normal Skin: No rashes, No breakdown, - - she has a stage II decub on the right bittock adjacent to the anal cleft. It is reddedned but no purulent DC. No odor, not warm to touch Musculoskeletal: No Tenderness to Palpation of Joints or Extremities, No Muscle Wasting Neurological: Cranial nerves II-XII grossly intact, Neuro grossly intact Psych/Mental Status: Normal Affect, Appropriate Assessment/Plan All Active Problems (Last Reviewed 01/17/20 @ 13:[address] Tonja Marshall, DO) CHF (congestive heart failure) (Acute) Ischemic cardiomyopathy (Acute) Acute blood loss anemia (Acute) Thrombocytopenia (Resolved) Decubitus ulcer, stage II (Acute) Paroxysmal atrial fibrillation with RVR (Resolved) Acute renal failure superimposed on stage 3 chronic kidney disease (Acute) History of left heart catheterization (Acute) Constipation due to pain medication (Resolved) Physical debility (Acute) Impressions 1. Physical debility secondary to recent STEMI, CABG x4 vessels, ischemic cardiomyopathy, acute systolic congestive heart failure, acute renal failure on chronic renal failure stage III, acute blood loss anemia. 2. CABG x4 vessels at [facility] on 01/09/[address] Ortiz. 3. Multivessel coronary artery disease of [place] arteries. 4. STEMI, inferior wall, last week of December 2019 5. Acute renal failure on chronic renal failure stage III due to acute tubular necrosis related to hypotension intraoperatively 6. Atrial fibrillation with rapid ventricular response postoperatively-resolved 7. Acute blood loss anemia secondary to surgery 8. Thrombocytopenia-resolved 9. Ischemic cardiomyopathy with a 30% EF 10. Stage II decubitus ulcer on the right buttock 11. Chronic medical conditions: Hypertension/hyperlipidemia/diabetes mellitus type 2/diabetic nephropathy with chronic renal failure stage III/gout/intracranial meningioma/left basal ganglia CVA in 2013/right carotid stenosis/mild left atrial enlargement/nonrheumatic moderate mitral regurgitation/diverticulosis/BPPV/internal hemorrhoids/bilateral renal cysts - continue current medications. These conditions complicate care, management, recovery and prognosis. PLAN PT for gait stability OT for ADL's ST for evaluation Analgesics as needed Bowel protocol Fall precautions Assess for Anxiety/Depression GI prophylaxis with Protonix 40 mg daily DVT prophylaxis with heparin 5000 units subcu every 12 hours Follow up with cardiothoracic surgery following DC from IP Rehab CBC, CMP, phos, mag and HGBA1C in the AM EKG today - no CP but, would like to have a EKG to compare to the prior EKG done 01/03/[address] elevation in the inferior leads CODE STATUS: Discussed code status at length with Maritza and her daughter Araceli including the difference between FULL CODE, DNR CCA and DNR CC status. All questions were answered. An order for full code was entered into the computer. A total of 10 minutes face to face time was devoted to advanced care planning. Inpatient E&M: 71396 Init Hosp L3
[2020-01-17 12:16] LABS: Bedside Glucose 221 mg/dL (70-110)
--- NOTE | 2020-01-17 12:19 | PCM.RU.PYE ---
Admission Information Primary Diagnosis:: physical debility due to recent MO and subsequent CABG with SHA and prolonged stay in the hospital prior to CABG Status Changes from Prescreening?: No changes Identified Actual Problem List:: Skin Intergrity, Bladder Incontinence, Alteration in Sleep, Alteration in Nutrition, Mobility Impaired, Diabetes, Hyperglycemia, Fluid Overload r/t CHF, Alteration-Leisure Activ. Potential Problem List:: DVT, Bleeding, Infection, UTI, Aspiration, Falls, Skin Integrity, Depression Risk of Complications DVT: RADHA Paulson, - - heparin Bleeding: Monitor Lab Values, Nursing to Teach Precautions for anti-coagulation therapy., Wound, if applicable, to be assessed every shift., Stroke patients assessed for lethargy or change in status. Infection: Clinical Staff to Monitor for S/S of infection:, S/S of infection include fever, redness, warmth, etc. Urinary Tract Infection: Monitor for frequency, burning, discomfort, or incontinence., Nursing will obtain urine sample for urinalysis and C&S when ordered. Aspiration: Clinical staff will monitor for coughing, drooling, congestion., Speech will evaluate swallowing and dsyphasia., Nursing will monitor patient swallowing during meals. Falls: Patient will be evaluated for Fall Precautions, Patient will be placed on Fall Precautions as indicated per protocol. Skin Breakdown: Nursing will assess skin daily using assessment tool., Nursing will place on Skin Breakdown Precautions as indicated. Pain: Clinical staff will assess patient's pain level per protocol., Medications will be given, if needed, and the pain level reassessed., Other methods: Massage, distraction, decrease stimulus, etc. used PRN. Plan of Care Patient requires physician specializing in physical medicine and rehab oversight to provide close medical supervision of rehab issues including: Pain Management, Sleep Problems, Bowel and Bladder, Medical and co-morbidity Management, DVT prophylaxis, Rehabilitation Leadership, Coordination of treatment team Patient needs Physical Therapy: For a minimum of 1 hour, At least 5 out of 7 days Patient needs Physical Therapy to improve:: Mobility, Mobility, Mobility, Strengthening, Transfers, Stretching, ROM, Endurance, Stairs, Gait, Balance Patient needs Occupational Therapy: For a minimum of 1 hour, At least 5 out of 7 days Patient needs Occupational Therapy to improve ADL's incl.: Eating, Grooming, Bathing, Dressing, Toileting, Toilet transfers, Community Reintegration, Higher functioning activities, Household tasks, Adaptive Equipment, Splinting, Other activities as determined Patient requires 24/7 Rehabilitation Nursing for: Pain Issues, Identifying and preventing risk factors, Monitoring and reporting current medical conditions, Assisting with ambulation, transfer, and all ADL's, Teaching patients about disease process and medications, Family teaching, Providing safe environment, Bowel and Bladder Issues, Skin integrity, Medication Management Patient needs Manager Architectural/ Case Management for: Discharge Planning, Arranging Home Equipment or Services, Family Interventions Patient needs Dietary and Nutrition Services for: Adequate Nutrition, Nutritional Supplements, Nutritional Education Goals Patient will remain: free from falls, or injury at time of discharge. Patient will perform bed mobility at: MOD I level of assist. Patient will complete transfers from bed to chair at: MOD I level of assist. Patient will ambulate: 100 feet, with MOD I assist, with LRD Patient will complete upper body dressing at: MOD I level of assist. Patient will complete lower body dressing at: MOD I level of assist. Patient will complete toileting at: MOD I level of assist. Patient will perform bathing at: MOD I level of assist. Patient will complete grooming at: MOD I level of assist. Patient will complete home management skills at: MOD I level of assist. Patient will achieve: 12 stairs, at MOD I assist Patient will have pain level of: of 3 or less Patient's skin will: remain intact, free from infection. Patient will receive: adequate nutrition. Discharge Planning Pt Prognosis for Sig. Practical Improv. w/in Reasonable Time: Good Estimated Length of stay (days): 10 Anticipated D/C Destination: Home with Outpt Therapy Was Preadmission Assessment Accurate?: Yes
[2020-01-17] MEDS: Insulin Lispro 100 UNIT/ML INSULN.PEN 6 UNIT SC (13:53)
[2020-01-17] MEDS: Acetaminophen 500 MG Tablet 1000 MG PO ×2 (14:44→21:32)
--- NOTE | 2020-01-17 14:48 | EKG12_ITS ---
Test Reason : S/P CABG Blood Pressure : / mmHG Vent. Rate : 068 BPM Atrial Rate : 068 BPM P-R Int : 170 ms QRS Dur : 116 ms QT Int : 502 ms P-R-T Axes : 090 -21 -21 degrees QTc Int : 533 ms Normal sinus rhythm Incomplete right bundle branch block Inferior infarct (cited on or before 03-JAN-2020) Prolonged QT Abnormal ECG Confirmed by JOSE RIVERA, JHONATAN ([id number]), editor house organ TABITHA SORTO ([id number]) on 01/20/2020 7:45:40 AM Referred By: ARLEN Confirmed By:JHONATAN GARCIA MD
[2020-01-17] MEDS: Menthol/Lanolin/Calamine/Znox 113 GM Tube 1 APPLIC TOPICAL (15:14)
[2020-01-17 15:20] VITALS: O2SAT 95
[2020-01-17] MEDS: Insulin Lispro 100 UNIT/ML INSULN.PEN 8 UNIT SC (16:58)
[2020-01-17 17:11] LABS: Bedside Glucose 235 mg/dL (70-110)
[2020-01-17 21:25] VITALS: BP 131/67; PULSE 68; RESP 16; TEMP 36.6; O2SAT 95
[2020-01-17] MEDS: Glycerin/Hypromellose/PEG400 15 ml Bottle 1 DRP OPHTHALMIC (21:28)
[2020-01-17] MEDS: traZODone 50 MG Tablet PO (21:29)
[2020-01-17] MEDS: Heparin Injection (Vial) 5,000 UNIT/ML VIAL 5000 UNIT SC (21:30)
[2020-01-17] MEDS: Petrolatum,White 3.75GM OPTH.TUBE 1 APPLIC OPHTHALMIC (21:31)
[2020-01-17] MEDS: Atorvastatin Calcium 40 MG Tablet PO (21:39)
[2020-01-17 21:41] LABS: Bedside Glucose 293 mg/dL (70-110)
[2020-01-17] MEDS: Insulin Lispro 100 UNIT/ML INSULN.PEN SC (22:33)
[2020-01-18] MEDS: Acetaminophen 500 MG Tablet 1000 MG PO ×3 (05:17→21:36)
--- NOTE | 2020-01-18 05:26 | NURSING ---
Pt states I did not sleep all night - Denies pain, No SOB. Note left for Dr Marshall and will report to day shift RN
[2020-01-18 06:16] LABS: Bedside Glucose 157 mg/dL (70-110)
[2020-01-18 06:27] LABS: Absolute Lymphocyte Count 1.91 X10^3/uL (0.83-4.51); Absolute Neutrophil Count 5.6 X10^3/uL (2.0-7.7); Basophil# 0.04 X10^3/uL; Basophil% 0.5 % (0-1); Eosinophil# 0.08 X10^3/uL; Eosinophils% 0.9 % (0-5); Hematocrit 30.6 % (37-47); Hemoglobin 9.9 g/dL (12.0-15.0); Lymphocyte # 1.91 X10^3/ul (4.0); Lymphocyte % 22.5 % (19-41); Mean Corp Hgb Conc 32.4 g/dL (32-36); Mean Corpuscular Hgb 30.4 pg (27.0-32.0); Mean Corpuscular Volume 93.9 fL (81-99); Mean Platelet Vol. 10.5 fl (6.2-12.0); Monocyte# 0.77 X10^3/uL; Monocyte% 9.1 % (0-10); NRBC Flagged by Analyzer 0 % (0-5); Neutrophil # 5.63 X10^3/uL (2.7-7.7); Neutrophil % 66.3 % (47-70); Platelet Count 359 K/mm3 (150-450); RBC Distribution Width CV 15.1 % (11.6-14.6); RBC Distribution Width SD 51.1 fl (35.1-43.9); Red Blood Count 3.26 M/mm3 (4.2-5.4); White Blood Count 8.5 K/mm3 (4.4-11.0)
[2020-01-18 07:00] VITALS: BP 149/72; PULSE 75; RESP 18; TEMP 36.6; O2SAT 95
[2020-01-18 07:16] LABS: ALB/GLOB Ratio 0.8 RATIO (0.9-2.4); AST(SGOT) 15 U/L (15-37); Alanine Aminotransfer ALT/SGPT 12 U/L (13-56); Albumin, Serum 2.6 g/dL (3.2-5.0); Alkaline Phosphatase 69 U/L (45-117); Anion Gap 8 (5-15); BUN 37 mg/dL (7-18); BUN/Creat Ratio 23.4 RATIO (10-20); Calcium,Total 8.4 mg/dL (8.5-10.1); Chloride 110 mmol/L (98-107); Creatinine, Serum 1.58 mg/dL (0.55-1.02); EST Glomerular Filtration Rate 33 mL/min (>60); Est Glom Filt Rate - Afr Amer 40 mL/min (>60); Estimated Creatinine Clearance 21.71 ml/min; Globulin 3.4 g/dL (2.2-4.2); Glucose 160 mg/dL (74-106); Magnesium 1.6 mg/dL (1.6-2.6); Phosphorus 2.8 mg/dL (2.5-4.9); Potassium 3.8 mmol/L (3.5-5.1); Sodium Level 141 mmol/L (136-145)
[2020-01-18 07:23] LABS: Hemoglobin A1c 7.7 % (4.2-6.3)
[2020-01-18] MEDS: Aspirin 81 MG TAB.CHEW PO (08:20)
[2020-01-18] MEDS: Furosemide 20 MG Tablet PO (08:20)
[2020-01-18] MEDS: amLODIPine 5 MG Tablet PO (08:20)
[2020-01-18] MEDS: Clopidogrel Bisulfate 75 MG Tablet PO (08:20)
[2020-01-18] MEDS: Amiodarone 200 MG Tablet PO (08:20)
[2020-01-18] MEDS: Magnesium Oxide 400 MG Tablet PO (08:20)
[2020-01-18] MEDS: Allopurinol 100 MG Tablet PO (08:21)
[2020-01-18 08:22] VITALS: PULSE 80
[2020-01-18] MEDS: Calcium Carbonate 500 MG Tablet PO (08:22)
[2020-01-18] MEDS: Metoprolol(XL)Succ 100 MG Tablet PO (08:22)
[2020-01-18] MEDS: Insulin Lispro 100 UNIT/ML INSULN.PEN 8 UNIT SC ×2 (08:23→16:58)
[2020-01-18] MEDS: Insulin Lispro 100 UNIT/ML INSULN.PEN SC ×2 (08:24→11:37)
[2020-01-18] MEDS: Lidocaine 5% Patch 1 PATCH TOPICAL (08:27)
[2020-01-18] MEDS: Glycerin/Hypromellose/PEG400 15 ml Bottle 1 DRP OPHTHALMIC ×2 (11:08→21:38)
[2020-01-18] MEDS: Heparin Injection (Vial) 5,000 UNIT/ML VIAL 5000 UNIT SC ×2 (11:08→21:38)
[2020-01-18 11:21] LABS: Bedside Glucose 179 mg/dL (70-110)
[2020-01-18] MEDS: Insulin Lispro 100 UNIT/ML INSULN.PEN 6 UNIT SC (11:37)
--- NOTE | 2020-01-18 15:33 | VDLE_ITS ---
Reason For Study: Pain RIGHT LEFT CFV is compressible, spontaneous, competent GSV is normal. and demonstrates pulsatile venous flow. CFV is compressible, spontaneous, competent, FV is compressible, spontaneous, competent and demonstrates pulsatile venous flow. and demonstrates pulsatile venous flow. FV is compressible, spontaneous, competent POP V is compressible, spontaneous, competent and demonstrates pulsatile venous flow. and demonstrates pulsatile venous flow. POP V is compressible, spontaneous, competent T/P Trunk is compressible. and demonstrates pulsatile venous flow. PTV is compressible. T/P Trunk is compressible. RT PerV is compressible. PTV is compressible. GSV harvested 01/09/2020. LT PerV is compressible. Procedure Exam performed portable in patient room. A preliminary report was called and/or faxed to RU RN. Interpretation Summary Pulsatile venous flow is noted bilaterally consistent with proximal venous hypertension. Clinical correlation would be appropriate. No evidence for acute deep venous thrombosis bilaterally. Surgically harvested right great saphenous vein. Patent and compressible left great saphenous vein Ordering Physician: Tonja Marshall Referring Physician: Siena Warren M.D. Performed By: Nelsy Aldana RVT
[2020-01-18 17:01] LABS: Bedside Glucose 138 mg/dL (70-110)
[2020-01-18 19:35] VITALS: BP 123/63; PULSE 71; RESP 18; TEMP 36.5; O2SAT 97
--- NOTE | 2020-01-18 19:46 | PCM.PN.BLA ---
Progress Note Afebile VSS Maintaining appropriate oxygen saturation on RA Oral intake is poor per the pt but good per nursing? Discussed with nursing - Reviewed the PT/OT notes from 01/18/2020 Medication list reviewed. All lab was personally reviewed. The hemoglobin is 9.9. White blood cell count and platelets are within normal limits. The differential was unremarkable. CMP shows a potassium of 3.8, BUN/creatinine 37 and 1.58, fasting glucose 160, HGBA1C 7.7, calcium corrected for hypoalbuminemia is within normal limits, left teas are unremarkable, albumin is 2.6. She tells me that she did not sleep last night either despite getting Trazodone. Has not been taking Tramadol. She has had decreased fluid intake.......dtr is bringing her in Propel which she likes to drink. MM - dry Lungs - CTA Heart - RRR, no gallop or rub she has a tender Right calf and a + kenan's There is swelling of the right ankle and the R calf.......SV was taken from the right leg. Impressions 1. possible DVT RLE vs changes due to recent harvesting of the R SV - Venous US ordered for the AM. Continue heparin for DVT prophylaxis 2. Chronic renal failure stage III with recent acute exacerbation postoperatively secondary to ATN suspected to be due to hypotension intraoperatively -encouraged patient to increase her fluid intake to maintain good renal function. 3. Diabetes mellitus type 2-blood sugars are still over 200. Continue to monitor today and adjust insulin in the AM when we have a better idea what she is consistently doing. Continue the SSI for now. Goal is FBS consistently less that 150 and PP BS's < 200 Recheck a BMP in the AM STROKE Vital Signs/Narrative: Vital Signs Temp Pulse Resp BP Pulse Ox 01/18/20 19:35 97.7 F L 71 18 123/63 H 97 Inpatient E&M: 71979 Subs Hosp L2
[2020-01-18] MEDS: Petrolatum,White 3.75GM OPTH.TUBE 1 APPLIC OPHTHALMIC (21:36)
[2020-01-18] MEDS: Atorvastatin Calcium 40 MG Tablet PO (21:36)
[2020-01-18] MEDS: traMADol 50 MG Tablet PO (21:36)
[2020-01-18] MEDS: traZODone 50 MG Tablet PO (21:38)
[2020-01-18 21:46] LABS: Bedside Glucose 148 mg/dL (70-110)
[2020-01-19] MEDS: Acetaminophen 500 MG Tablet 1000 MG PO ×2 (05:08→13:24)
[2020-01-19 06:09] LABS: Anion Gap 7 (5-15); BUN 43 mg/dL (7-18); BUN/Creat Ratio 25.6 RATIO (10-20); Calcium,Total 8.3 mg/dL (8.5-10.1); Chloride 108 mmol/L (98-107); Creatinine, Serum 1.68 mg/dL (0.55-1.02); EST Glomerular Filtration Rate 31 mL/min (>60); Est Glom Filt Rate - Afr Amer 37 mL/min (>60); Estimated Creatinine Clearance 20.42 ml/min; Glucose 166 mg/dL (74-106); Potassium 4.1 mmol/L (3.5-5.1); Sodium Level 139 mmol/L (136-145)
[2020-01-19 06:31] LABS: Bedside Glucose 205 mg/dL (70-110)
[2020-01-19 08:00] VITALS: O2SAT 94
[2020-01-19 08:05] VITALS: BP 144/72; PULSE 73; RESP 16; TEMP 36.5; O2SAT 94
[2020-01-19] MEDS: Insulin Lispro 100 UNIT/ML INSULN.PEN SC ×2 (08:06→12:08)
[2020-01-19] MEDS: Insulin Lispro 100 UNIT/ML INSULN.PEN 8 UNIT SC ×2 (08:07→16:28)
[2020-01-19] MEDS: Glycerin/Hypromellose/PEG400 15 ml Bottle 1 DRP OPHTHALMIC ×2 (08:08→20:35)
[2020-01-19] MEDS: Heparin Injection (Vial) 5,000 UNIT/ML VIAL 5000 UNIT SC ×2 (08:09→20:38)
[2020-01-19] MEDS: Lidocaine 5% Patch 1 PATCH TOPICAL (08:10)
[2020-01-19 10:04] VITALS: PULSE 75
[2020-01-19] MEDS: Magnesium Oxide 400 MG Tablet PO (10:04)
[2020-01-19] MEDS: Metoprolol(XL)Succ 100 MG Tablet PO (10:04)
[2020-01-19] MEDS: Furosemide 20 MG Tablet PO (10:04)
[2020-01-19] MEDS: amLODIPine 5 MG Tablet PO ×2 (10:04→20:39)
[2020-01-19] MEDS: Amiodarone 200 MG Tablet PO (10:04)
[2020-01-19] MEDS: Calcium Carbonate 500 MG Tablet PO (10:04)
[2020-01-19] MEDS: Clopidogrel Bisulfate 75 MG Tablet PO (10:04)
[2020-01-19] MEDS: Allopurinol 100 MG Tablet PO (10:05)
[2020-01-19] MEDS: Aspirin 81 MG TAB.CHEW PO (10:05)
[2020-01-19 11:51] LABS: Bedside Glucose 220 mg/dL (70-110)
[2020-01-19] MEDS: Insulin Lispro 100 UNIT/ML INSULN.PEN 6 UNIT SC (12:08)
--- NOTE | 2020-01-19 12:34 | PCM.PN.BLA ---
Progress Note Afebile VSS Maintaining appropriate oxygen saturation on RA Oral intake is moderate....still c/o having no appetite Discussed with nursing - no problems that need addressed. She slept much better last night with the Trazodone and the scheduled Tramadol Reviewed the PT/OT notes Medication list reviewed. She ambulated 110 ft today but, fatigues easily and could not walk any further. She also did 5 steps today, reciprocal. The right calf is less painful with the ISABELLA wrap rather than the RADHA hose. Venous ultrasound was negative for DVT. All lab was personally reviewed. Potassium is 4.1. The BUN is up to 43 and the creatinine is up to 1.68 from 1.58 yesterday. Hemoglobin A1c is 7.7 Feels better now that she had some good sleep. Lungs - CTA less edema of the R calf today Heart- RRR, no gallop abd - soft, NT, ND, normal BS's. Impressions 1. debility post TN and then CABG X 4 vessels with SHA post op due to ATN 2. inanition - May need to start an antidepressant - or try Marinol? 3. DM II - coming under better control. Will increase the Lantus to 15 units and increase the AM Lispro. The goal is to get the fasting under 150 and the PP BS's less than 180 consistently, etienne in light of CAD 4. Hypertension-systolic blood pressure in the a.m. is mildly increased. Will change the amlodipine to at bedtime rather than every morning. Continue to monitor blood pressures. 5. Acute on chronic renal failure-creatinine has increased from 1.58 at admission to 1.68 today. She has propel to drink in her room but propel has caffeine in it and this is a diuretic. Will encourage her to increase water intake. Recheck the BMP on Sunday. Remove the sutures in the upper abdomen today Check a CBC on Sunday to ensure that the hemoglobin is stable STROKE Vital Signs/Narrative: Vital Signs Pulse 01/19/20 10:04 75 Inpatient E&M: 00179 Subs Hosp L2
--- NOTE | 2020-01-19 16:10 | CHAPLAIN ---
Type of Pastoral Visit _x__ Initial Visit ___ Follow-up Visit ___ On-call Visit ___ General Patient Visit ___ Spiritual Assessment ___ Family Conference ___ Bereavement ___ Rapid Response ___ Code Blue ___ Other (describe below) Pastoral Care Referral From _x__ Patient ___ Family ___ Nurse ___ Physician ___ Gate Keeper ___ Intermediate Project Manager ___ Other (describe below) Sacrament/Intervention _x__ Active listening ___ Anointing ___ Mormon ___ Bereavement ___ Communion ___ Lelo exploration ___ ___ Life review _x__ Prayer ___ Reconciliation ___ Sacrament of Sick _x__ Supportive presence ___ Wedding ___ Other (describe below) Pastoral Comments
[2020-01-19 17:55] LABS: Bedside Glucose 116 mg/dL (70-110)
[2020-01-19 19:18] VITALS: BP 129/67; PULSE 68; RESP 16; TEMP 36.6; O2SAT 95
[2020-01-19] MEDS: Petrolatum,White 3.75GM OPTH.TUBE 1 APPLIC OPHTHALMIC (20:38)
[2020-01-19] MEDS: traZODone 50 MG Tablet PO (20:38)
[2020-01-19] MEDS: Atorvastatin Calcium 40 MG Tablet PO (20:39)
[2020-01-19] MEDS: traMADol 50 MG Tablet PO (21:07)
[2020-01-19 21:41] LABS: Bedside Glucose 93 mg/dL (70-110)
--- NOTE | 2020-01-20 07:10 | NURSING ---
In the attempt to get pt to MP for Daily Wt, Pt sat at side of bed. Pt had 75 Ml emesis. Pt provided Sharon Leticia and repositioned in bed.
[2020-01-20 07:11] LABS: Bedside Glucose 135 mg/dL (70-110)
[2020-01-20 07:19] VITALS: O2SAT 92
[2020-01-20] MEDS: Heparin Injection (Vial) 5,000 UNIT/ML VIAL 5000 UNIT SC ×2 (07:50→21:08)
[2020-01-20] MEDS: Lidocaine 5% Patch 1 PATCH TOPICAL (07:50)
[2020-01-20 07:51] VITALS: PULSE 82
[2020-01-20] MEDS: Allopurinol 100 MG Tablet PO (07:51)
[2020-01-20] MEDS: Furosemide 20 MG Tablet PO (07:51)
[2020-01-20] MEDS: Metoprolol(XL)Succ 100 MG Tablet PO (07:51)
[2020-01-20] MEDS: Glycerin/Hypromellose/PEG400 15 ml Bottle 1 DRP OPHTHALMIC ×2 (07:55→21:08)
[2020-01-20] MEDS: Insulin Lispro 100 UNIT/ML INSULN.PEN 10 UNIT SC (08:00)
[2020-01-20] MEDS: Magnesium Oxide 400 MG Tablet PO (09:16)
[2020-01-20] MEDS: Amiodarone 200 MG Tablet PO (09:17)
[2020-01-20] MEDS: Calcium Carbonate 500 MG Tablet PO (09:17)
[2020-01-20] MEDS: Clopidogrel Bisulfate 75 MG Tablet PO (09:17)
[2020-01-20] MEDS: Senna Tablet 2 TABLET PO ×2 (09:18→16:40)
[2020-01-20] MEDS: Aspirin 81 MG TAB.CHEW PO (09:19)
[2020-01-20 09:33] VITALS: BP 134/75; PULSE 73; RESP 16; TEMP 36.4; O2SAT 93
[2020-01-20 11:30] LABS: Bedside Glucose 174 mg/dL (70-110)
[2020-01-20] MEDS: Insulin Lispro 100 UNIT/ML INSULN.PEN 6 UNIT SC (11:44)
[2020-01-20] MEDS: Insulin Lispro 100 UNIT/ML INSULN.PEN SC (11:45)
--- NOTE | 2020-01-20 13:20 | PN_ITS ---
Progress Note Afebile VSS Maintaining appropriate oxygen saturation on RA Oral intake is [] Discussed with nursing - no problems that need addressed Reviewed the PT/OT/ST notes Medication list reviewed. Blood sugar record was reviewed and blood sugars are in good control. Still had nausea this AM and it was before the pills and also prior to breakfast ....may be the Tramadol. Alert, oriented x3, no apparent distress Lungs-clear to auscultation Heart-regular rate and rhythm The incision is intact with no ramesh-incisional erythema or discharge. Abdomen-soft, nontender, nondistended, no guarding with palpation, bowel sounds present Minimal ankle edema Impressions 1. Debility secondary to recent [place] and subsequent CABG 2. Insomnia 3. Persistent nausea-tramadol has been discontinued. 4. Diabetes mellitus type 2-not optimally controlled DC the Tramadol and give 1 GM Tylenol at bedtime. Continue the same insulin regimen for now until she is consistently able to take in food without N/V. STROKE Vital Signs/Narrative: Vital Signs Temp Pulse Resp BP Pulse Ox 01/20/20 09:33 97.6 F L 73 16 134/75 H 93 Inpatient E&M: 37388 Subs Hosp L2
[2020-01-20] MEDS: Insulin Lispro 100 UNIT/ML INSULN.PEN 8 UNIT SC (16:39)
[2020-01-20 17:01] LABS: Bedside Glucose 125 mg/dL (70-110)
[2020-01-20 20:40] VITALS: BP 146/69; PULSE 68; RESP 17; TEMP 36.6; O2SAT 94
--- NOTE | 2020-01-20 20:49 | NURSING ---
Pt refusing pain meds this hs to rule out n/v. Pt will assess in a.m. if that move was effective.
[2020-01-20] MEDS: traZODone 50 MG Tablet PO (21:08)
[2020-01-20] MEDS: Petrolatum,White 3.75GM OPTH.TUBE 1 APPLIC OPHTHALMIC (21:11)
[2020-01-20] MEDS: Atorvastatin Calcium 40 MG Tablet PO (21:11)
[2020-01-20] MEDS: amLODIPine 5 MG Tablet PO (21:11)
[2020-01-21 05:44] LABS: Hematocrit 31.1 % (37-47); Mean Corp Hgb Conc 32.2 g/dL (32-36); Mean Corpuscular Hgb 30.2 pg (27.0-32.0); Mean Platelet Vol. 10.2 fl (6.2-12.0); Platelet Count 443 K/mm3 (150-450); RBC Distribution Width CV 15.1 % (11.6-14.6); RBC Distribution Width SD 51.9 fl (35.1-43.9); Red Blood Count 3.31 M/mm3 (4.2-5.4); White Blood Count 8.3 K/mm3 (4.4-11.0)
[2020-01-21 06:02] LABS: Anion Gap 8 (5-15); BUN 29 mg/dL (7-18); BUN/Creat Ratio 19.1 RATIO (10-20); Calcium,Total 8.5 mg/dL (8.5-10.1); Chloride 107 mmol/L (98-107); Creatinine, Serum 1.52 mg/dL (0.55-1.02); EST Glomerular Filtration Rate 35 mL/min (>60); Est Glom Filt Rate - Afr Amer 42 mL/min (>60); Estimated Creatinine Clearance 22.57 ml/min; Glucose 98 mg/dL (74-106); Potassium 3.9 mmol/L (3.5-5.1); Sodium Level 140 mmol/L (136-145)
[2020-01-21 06:45] LABS: Bedside Glucose 109 mg/dL (70-110)
[2020-01-21] MEDS: Insulin Lispro 100 UNIT/ML INSULN.PEN 10 UNIT SC (08:39)
[2020-01-21] MEDS: Amiodarone 200 MG Tablet PO (08:39)
[2020-01-21] MEDS: Allopurinol 100 MG Tablet PO (08:39)
[2020-01-21] MEDS: Heparin Injection (Vial) 5,000 UNIT/ML VIAL 5000 UNIT SC ×2 (08:39→21:47)
[2020-01-21] MEDS: Glycerin/Hypromellose/PEG400 15 ml Bottle 1 DRP OPHTHALMIC ×2 (08:39→21:47)
[2020-01-21] MEDS: Aspirin 81 MG TAB.CHEW PO (08:39)
[2020-01-21] MEDS: Magnesium Oxide 400 MG Tablet PO (08:42)
[2020-01-21] MEDS: Clopidogrel Bisulfate 75 MG Tablet PO (08:42)
[2020-01-21] MEDS: Lidocaine 5% Patch 1 PATCH TOPICAL (08:42)
[2020-01-21] MEDS: Furosemide 20 MG Tablet PO (08:42)
[2020-01-21 08:43] VITALS: PULSE 79
[2020-01-21] MEDS: Calcium Carbonate 500 MG Tablet PO (08:43)
[2020-01-21] MEDS: Metoprolol(XL)Succ 100 MG Tablet PO (08:43)
[2020-01-21 08:51] VITALS: BP 144/75; PULSE 79; RESP 17; TEMP 36.7; O2SAT 93
--- NOTE | 2020-01-21 10:00 | NURSING ---
Patient c/o mild burning with urination and this is the first complaint to nursing. FLuids encouraged. Will report to DR. Marshall. Afebrile.
[2020-01-21 11:36] LABS: Bedside Glucose 167 mg/dL (70-110)
[2020-01-21] MEDS: Insulin Lispro 100 UNIT/ML INSULN.PEN 6 UNIT SC (12:02)
[2020-01-21] MEDS: Insulin Lispro 100 UNIT/ML INSULN.PEN SC ×2 (12:03→16:34)
[2020-01-21 12:27] LABS: Mucous, Urine 0 SEEN /hpf (<or=2+)
[2020-01-21 12:30] LABS: Color, Urine Yellow (Yellow); Glucose, Dipstick Normal (Normal); Ketone-Dipstick Negative (Negative); Leukocyte Esterase-Dipstick 100 /ul (Negative); Nitrite-Dipstick Negative (Negative); Occult Blood-Urine 10 /ul (Negative); Protein-Dipstick 30 mg/dl (Negative); Specific Gravity, Urine 1.005 (1.002-1.030); Urine Bilirubin Dipstick Negative (Negative); Urine Clarity Clear (Clear); Urine Urobilinogen Normal (Normal); Urine pH 6.5 (5.0 - 8.0)
[2020-01-21 13:03] LABS: Bacteria RARE /hpf (None Seen); Red Blood Cells-Urine 0-5 SEEN /hpf (0-5); Squamous Epithelial Cells - UA 0-5 SEEN /hpf (5-10); White Blood Cells 5-10 SEEN /hpf (0-5)
[2020-01-21] MEDS: Insulin Lispro 100 UNIT/ML INSULN.PEN 8 UNIT SC (16:33)
[2020-01-21 17:25] LABS: Bedside Glucose 239 mg/dL (70-110)
[2020-01-21 20:15] VITALS: BP 141/67; PULSE 66; RESP 16; TEMP 36.8; O2SAT 97
[2020-01-21] MEDS: Petrolatum,White 3.75GM OPTH.TUBE 1 APPLIC OPHTHALMIC (21:47)
[2020-01-21] MEDS: traZODone 50 MG Tablet PO (21:47)
[2020-01-21] MEDS: Atorvastatin Calcium 40 MG Tablet PO (21:47)
[2020-01-21] MEDS: amLODIPine 5 MG Tablet PO (21:47)
[2020-01-21 22:41] LABS: Bedside Glucose 158 mg/dL (70-110)
[2020-01-22 07:00] VITALS: BP 145/68; PULSE 70; RESP 20; TEMP 36.6; O2SAT 93
[2020-01-22 07:31] LABS: Bedside Glucose 132 mg/dL (70-110)
[2020-01-22] MEDS: Heparin Injection (Vial) 5,000 UNIT/ML VIAL 5000 UNIT SC ×2 (08:24→22:13)
[2020-01-22] MEDS: Calcium Carbonate 500 MG Tablet PO (08:24)
[2020-01-22] MEDS: Furosemide 20 MG Tablet PO (08:24)
[2020-01-22] MEDS: Clopidogrel Bisulfate 75 MG Tablet PO (08:24)
[2020-01-22] MEDS: Magnesium Oxide 400 MG Tablet PO (08:24)
[2020-01-22] MEDS: Aspirin 81 MG TAB.CHEW PO (08:24)
[2020-01-22] MEDS: Allopurinol 100 MG Tablet PO (08:24)
[2020-01-22] MEDS: Amiodarone 200 MG Tablet PO (08:24)
[2020-01-22 08:25] VITALS: BP 145/68; PULSE 70
[2020-01-22] MEDS: Metoprolol(XL)Succ 100 MG Tablet PO (08:25)
[2020-01-22] MEDS: Insulin Lispro 100 UNIT/ML INSULN.PEN 10 UNIT SC (08:33)
[2020-01-22] MEDS: Glycerin/Hypromellose/PEG400 15 ml Bottle 1 DRP OPHTHALMIC ×2 (08:40→22:12)
--- NOTE | 2020-01-22 10:30 | CASEMGMT ---
Social Work IDT met with pt and pt dtr for team meeting to discuss pt progress. Pt is SBA for all transfers and is walking 100 ft with FWW. Pt is able to do steps and will start working on steps in stairwell on this date. Concerns with pt fatigue in evenings, therapy recommending less activity in evenings/ awareness of fatigue to promote safety. Pt is min assist for bathing and is set up-supervised for UE ADLS. Pt is at min assist for LE ADLs and is using reachers for LE dressing. Therapy recommending pt to get hip kit with associate programmer analyst, long bath sponge and sock aid. Physician is also recommending pt f/u with nuephrologist. Educated pt to days, pt has been given 11 days, DC 01/27. Pt requesting [facility]-PT/OT and FWW. Will continue to follow. Shu Wallace, social work culinary internship Fidelina Clifford, FOOD AND NUTRITION SERVICES ASSISTANT CHEMICAL PLANT WORKER
[2020-01-22 12:05] LABS: Bedside Glucose 153 mg/dL (70-110)
[2020-01-22] MEDS: Insulin Lispro 100 UNIT/ML INSULN.PEN 6 UNIT SC (12:33)
[2020-01-22] MEDS: Ciprofloxacin 250 MG Tablet PO ×2 (12:33→22:13)
[2020-01-22] MEDS: Insulin Lispro 100 UNIT/ML INSULN.PEN SC ×2 (12:34→17:37)
--- NOTE | 2020-01-22 16:48 | CHAPLAIN ---
Type of Pastoral Visit ___ Initial Visit _x__ Follow-up Visit ___ On-call Visit ___ General Patient Visit ___ Spiritual Assessment ___ Family Conference ___ Bereavement ___ Rapid Response ___ Code Blue ___ Other (describe below) Pastoral Care Referral From _x__ Patient ___ Family ___ Nurse ___ Physician ___ Machine Puller And Laster ___ Career Center Advisor ___ Other (describe below) Sacrament/Intervention _x__ Active listening ___ Anointing ___ Evangelical ___ Bereavement ___ Communion ___ Ello exploration ___ ___ Life review _x__ Prayer ___ Reconciliation ___ Sacrament of Sick _x__ Supportive presence ___ Wedding ___ Other (describe below) Pastoral Comments
[2020-01-22 17:00] LABS: Bedside Glucose 161 mg/dL (70-110)
--- NOTE | 2020-01-22 17:01 | PCM.PN.BLA ---
Progress Note Day #1 Cipro Patient was seen on team rounds today. Her daughter was present. Afebile VSS-systolic blood pressure is mildly elevated and frequently greater than 135. Diastolic blood pressures within normal limits. Maintaining appropriate oxygen saturation on RA Oral intake is good Discussed with nursing - no problems that need addressed. Reviewed the PT/OT notes Medication list reviewed. BS record was reviewed. Blood sugars today are all less than 170. No hypoglycemia. Urine culture is pending. She tells me she slept well last night. She received trazodone and 1 g of Tylenol at bedtime. No nausea since the tramadol was discontinued. She denies pain today. No SOB. R calf pain is better.....less tender with the ISABELLA than the Talha hose. No cough. No abd pain or flank pain. Alert, oriented x3, no apparent distress, sitting in the recliner at the bedside, pleasant and appropriate No JVD Lungs-clear to auscultation Heart-regular rate and rhythm, no gallop, no rub Abdomen-soft, nontender, nondistended, bowel sounds heard in all 4 quadrants, no guarding with palpation Trace edema of the right ankle....improved. Denies calf pain today. No edema of the left ankle Impressions 1. debility due to recent [place] and then CABG 2. UTI - started on Cipro. Urine culture is pending. 3. Stage 3 CRF - recommended she follow up with Nephrology as an OP and I suggested Dr. Alfonso. 4. acute blood loss anemia - stable 5. Borderline low mag at 1.6 - supplement was added on 01/17. Will recheck the mag next week 6. K is less than 4 and she is a recent CABG so will supplement to keep at 4 or above. 7. DM II - blood sugars are coming under better control.....if they remain all < 180 will DC the SSI coverage tomorrow. Inpatient E&M: [id number] Subs Hosp L2
[2020-01-22] MEDS: Insulin Lispro 100 UNIT/ML INSULN.PEN 8 UNIT SC (17:37)
[2020-01-22 22:00] VITALS: BP 131/56; PULSE 70; RESP 16; TEMP 36.8; O2SAT 97
[2020-01-22 22:06] LABS: Bedside Glucose 115 mg/dL (70-110)
[2020-01-22] MEDS: Petrolatum,White 3.75GM OPTH.TUBE 1 APPLIC OPHTHALMIC (22:12)
[2020-01-22] MEDS: amLODIPine 5 MG Tablet PO (22:13)
[2020-01-22] MEDS: Atorvastatin Calcium 40 MG Tablet PO (22:13)
[2020-01-22] MEDS: traZODone 50 MG Tablet PO (22:13)
[2020-01-23 06:46] LABS: Bedside Glucose 123 mg/dL (70-110)
[2020-01-23] MEDS: Insulin Lispro 100 UNIT/ML INSULN.PEN 11 UNIT SC (08:30)
[2020-01-23 08:32] VITALS: BP 148/71; PULSE 73; RESP 16; TEMP 36.6; O2SAT 94
[2020-01-23] MEDS: Heparin Injection (Vial) 5,000 UNIT/ML VIAL 5000 UNIT SC ×2 (08:48→21:25)
[2020-01-23] MEDS: Lidocaine 5% Patch 1 PATCH TOPICAL (08:51)
[2020-01-23] MEDS: Aspirin 81 MG TAB.CHEW PO (08:52)
[2020-01-23] MEDS: Amiodarone 200 MG Tablet PO (08:53)
[2020-01-23] MEDS: Allopurinol 100 MG Tablet PO (08:53)
[2020-01-23] MEDS: Glycerin/Hypromellose/PEG400 15 ml Bottle 1 DRP OPHTHALMIC ×2 (08:53→21:29)
[2020-01-23] MEDS: Ciprofloxacin 250 MG Tablet PO ×2 (08:53→21:25)
[2020-01-23] MEDS: Furosemide 20 MG Tablet PO (08:53)
[2020-01-23 08:54] VITALS: PULSE 73
[2020-01-23] MEDS: Metoprolol(XL)Succ 100 MG Tablet PO (08:54)
[2020-01-23] MEDS: Calcium Carbonate 500 MG Tablet PO (08:54)
[2020-01-23] MEDS: Clopidogrel Bisulfate 75 MG Tablet PO (08:54)
[2020-01-23] MEDS: Magnesium Oxide 400 MG Tablet PO (08:54)
[2020-01-23 11:31] LABS: Bedside Glucose 220 mg/dL (70-110)
[2020-01-23] MEDS: Insulin Lispro 100 UNIT/ML INSULN.PEN 7 UNIT SC (11:45)
[2020-01-23] MEDS: Insulin Lispro 100 UNIT/ML INSULN.PEN SC ×2 (11:45→16:17)
[2020-01-23] MEDS: Insulin Lispro 100 UNIT/ML INSULN.PEN 8 UNIT SC (16:17)
[2020-01-23 17:36] LABS: Bedside Glucose 227 mg/dL (70-110)
[2020-01-23 19:39] VITALS: BP 136/70; PULSE 67; RESP 18; TEMP 36.6; O2SAT 98
[2020-01-23] MEDS: amLODIPine 5 MG Tablet PO (21:25)
[2020-01-23] MEDS: Acetaminophen 500 MG Tablet 1000 MG PO (21:25)
[2020-01-23] MEDS: traZODone 50 MG Tablet PO (21:25)
[2020-01-23] MEDS: Atorvastatin Calcium 40 MG Tablet PO (21:25)
[2020-01-23] MEDS: Petrolatum,White 3.75GM OPTH.TUBE 1 APPLIC OPHTHALMIC (21:28)
[2020-01-23 21:55] LABS: Bedside Glucose 233 mg/dL (70-110)
[2020-01-24 06:56] LABS: Bedside Glucose 174 mg/dL (70-110)
[2020-01-24] MEDS: Allopurinol 100 MG Tablet PO (08:33)
[2020-01-24] MEDS: Aspirin 81 MG TAB.CHEW PO (08:33)
[2020-01-24] MEDS: Ciprofloxacin 250 MG Tablet PO ×2 (08:34→21:08)
[2020-01-24] MEDS: Furosemide 20 MG Tablet PO (08:35)
[2020-01-24] MEDS: Amiodarone 200 MG Tablet PO (08:35)
[2020-01-24] MEDS: Magnesium Oxide 400 MG Tablet PO (08:35)
[2020-01-24] MEDS: Clopidogrel Bisulfate 75 MG Tablet PO (08:35)
[2020-01-24 08:36] VITALS: BP 147/71; PULSE 68
[2020-01-24] MEDS: Metoprolol(XL)Succ 100 MG Tablet PO (08:36)
[2020-01-24] MEDS: Calcium Carbonate 500 MG Tablet PO (08:36)
[2020-01-24] MEDS: Insulin Lispro 100 UNIT/ML INSULN.PEN 11 UNIT SC (08:38)
[2020-01-24] MEDS: Insulin Lispro 100 UNIT/ML INSULN.PEN SC ×2 (08:39→16:51)
[2020-01-24] MEDS: Heparin Injection (Vial) 5,000 UNIT/ML VIAL 5000 UNIT SC ×2 (08:41→21:08)
[2020-01-24 08:43] VITALS: BP 147/71; PULSE 68; RESP 16; TEMP 36.5; O2SAT 95
[2020-01-24] MEDS: Lidocaine 5% Patch 1 PATCH TOPICAL (08:44)
[2020-01-24] MEDS: Glycerin/Hypromellose/PEG400 15 ml Bottle 1 DRP OPHTHALMIC ×2 (08:44→21:07)
[2020-01-24] MEDS: Insulin Lispro 100 UNIT/ML INSULN.PEN 7 UNIT SC (11:58)
[2020-01-24 12:10] LABS: Bedside Glucose 132 mg/dL (70-110)
[2020-01-24] MEDS: Lisinopril 2.5 MG Tablet PO (15:57)
[2020-01-24] MEDS: Insulin Lispro 100 UNIT/ML INSULN.PEN 8 UNIT SC (16:50)
[2020-01-24 17:15] LABS: Bedside Glucose 170 mg/dL (70-110)
[2020-01-24 19:26] VITALS: BP 143/63; PULSE 70; RESP 18; TEMP 36.7; O2SAT 98
[2020-01-24] MEDS: Atorvastatin Calcium 40 MG Tablet PO (21:08)
[2020-01-24] MEDS: Petrolatum,White 3.75GM OPTH.TUBE 1 APPLIC OPHTHALMIC (21:08)
[2020-01-24] MEDS: traZODone 50 MG Tablet PO (21:08)
[2020-01-24] MEDS: amLODIPine 5 MG Tablet PO (21:09)
[2020-01-24] MEDS: Acetaminophen 500 MG Tablet 1000 MG PO (21:09)
[2020-01-24 21:26] LABS: Bedside Glucose 180 mg/dL (70-110)
[2020-01-25 07:10] LABS: Bedside Glucose 137 mg/dL (70-110)
[2020-01-25] MEDS: Insulin Lispro 100 UNIT/ML INSULN.PEN 11 UNIT SC (08:03)
[2020-01-25] MEDS: Glycerin/Hypromellose/PEG400 15 ml Bottle 1 DRP OPHTHALMIC ×2 (08:04→19:49)
[2020-01-25] MEDS: Allopurinol 100 MG Tablet PO (08:04)
[2020-01-25] MEDS: Aspirin 81 MG TAB.CHEW PO (08:04)
[2020-01-25] MEDS: Ciprofloxacin 250 MG Tablet PO ×2 (08:05→19:48)
[2020-01-25] MEDS: Heparin Injection (Vial) 5,000 UNIT/ML VIAL 5000 UNIT SC ×2 (08:05→19:48)
[2020-01-25] MEDS: Amiodarone 200 MG Tablet PO (08:05)
[2020-01-25] MEDS: Lidocaine 5% Patch 1 PATCH TOPICAL (08:06)
[2020-01-25] MEDS: Furosemide 20 MG Tablet PO (08:06)
[2020-01-25] MEDS: Clopidogrel Bisulfate 75 MG Tablet PO (08:07)
[2020-01-25] MEDS: Magnesium Oxide 400 MG Tablet PO (08:07)
[2020-01-25 08:08] VITALS: PULSE 69
[2020-01-25] MEDS: Calcium Carbonate 500 MG Tablet PO (08:08)
[2020-01-25] MEDS: Metoprolol(XL)Succ 100 MG Tablet PO (08:08)
[2020-01-25] MEDS: Lisinopril 2.5 MG Tablet PO (08:09)
[2020-01-25 10:00] VITALS: BP 138/60; PULSE 69; RESP 18; TEMP 36.6; O2SAT 94
[2020-01-25] MEDS: Insulin Lispro 100 UNIT/ML INSULN.PEN SC (11:27)
[2020-01-25] MEDS: Insulin Lispro 100 UNIT/ML INSULN.PEN 7 UNIT SC (11:28)
[2020-01-25 11:36] LABS: Bedside Glucose 175 mg/dL (70-110)
[2020-01-25] MEDS: Insulin Lispro 100 UNIT/ML INSULN.PEN 10 UNIT SC (17:08)
[2020-01-25 17:21] LABS: Bedside Glucose 101 mg/dL (70-110)
[2020-01-25 19:35] VITALS: BP 131/67; PULSE 71; RESP 16; TEMP 36.7; O2SAT 97
[2020-01-25] MEDS: Atorvastatin Calcium 40 MG Tablet PO (19:48)
[2020-01-25] MEDS: Acetaminophen 500 MG Tablet 1000 MG PO (19:48)
[2020-01-25] MEDS: traZODone 50 MG Tablet PO (19:48)
[2020-01-25] MEDS: Petrolatum,White 3.75GM OPTH.TUBE 1 APPLIC OPHTHALMIC (19:49)
[2020-01-25 19:50] VITALS: PULSE 71; RESP 16; O2SAT 97
[2020-01-25] MEDS: amLODIPine 5 MG Tablet PO (19:50)
[2020-01-25 21:36] LABS: Bedside Glucose 83 mg/dL (70-110)
[2020-01-25 21:45] VITALS: BP 131/67; PULSE 71; RESP 16; TEMP 36.7; O2SAT 97
--- NOTE | 2020-01-26 03:30 | NURSING ---
Reviewed and agree with ROUTE DELIVERER documentation and charting.
[2020-01-26 06:41] LABS: Anion Gap 7 (5-15); BUN 30 mg/dL (7-18); BUN/Creat Ratio 16.8 RATIO (10-20); Chloride 110 mmol/L (98-107); Creatinine, Serum 1.79 mg/dL (0.55-1.02); EST Glomerular Filtration Rate 29 mL/min (>60); Est Glom Filt Rate - Afr Amer 35 mL/min (>60); Estimated Creatinine Clearance 19.16 ml/min; Glucose 134 mg/dL (74-106); Magnesium 1.8 mg/dL (1.6-2.6); Potassium 3.9 mmol/L (3.5-5.1); Sodium Level 143 mmol/L (136-145)
[2020-01-26 07:05] LABS: Bedside Glucose 137 mg/dL (70-110)
[2020-01-26 07:25] VITALS: BP 156/72; PULSE 76; RESP 14; TEMP 36.7; O2SAT 96
[2020-01-26] MEDS: Glycerin/Hypromellose/PEG400 15 ml Bottle 1 DRP OPHTHALMIC ×2 (07:29→21:44)
[2020-01-26] MEDS: Aspirin 81 MG TAB.CHEW PO (07:29)
[2020-01-26] MEDS: Allopurinol 100 MG Tablet PO (07:29)
[2020-01-26] MEDS: Insulin Lispro 100 UNIT/ML INSULN.PEN 12 UNIT SC (07:29)
[2020-01-26] MEDS: Amiodarone 200 MG Tablet PO (07:30)
[2020-01-26] MEDS: Ciprofloxacin 250 MG Tablet PO ×2 (07:30→21:43)
[2020-01-26] MEDS: Heparin Injection (Vial) 5,000 UNIT/ML VIAL 5000 UNIT SC (07:30)
[2020-01-26] MEDS: Lidocaine 5% Patch 1 PATCH TOPICAL (07:31)
[2020-01-26 07:33] VITALS: PULSE 76
[2020-01-26] MEDS: Furosemide 20 MG Tablet PO (07:33)
[2020-01-26] MEDS: Metoprolol(XL)Succ 100 MG Tablet PO (07:33)
[2020-01-26] MEDS: Magnesium Oxide 400 MG Tablet PO (07:33)
[2020-01-26] MEDS: Clopidogrel Bisulfate 75 MG Tablet PO (07:33)
[2020-01-26] MEDS: Calcium Carbonate 500 MG Tablet PO (07:33)
[2020-01-26] MEDS: Lisinopril 2.5 MG Tablet PO (07:34)
[2020-01-26 08:42] LABS: Vitamin D,25 Hydroxy 69.5 ng/mL
--- NOTE | 2020-01-26 10:52 | CASEMGMT ---
Social Work Spoke with pt about DC plans. Pt will DC home alone with [facility] - provided list, pt chose [facility]. Referral made for PT/OT/SN. Pt has FWW at home. Plan: DC home alone 01/27 with [facility] PT/OT/SN. No DME needs. Fidelina Clifford, DATA OFFICER HOT AIR FURNACE INSTALLER REPAIRER
[2020-01-26] MEDS: Insulin Lispro 100 UNIT/ML INSULN.PEN SC (12:07)
[2020-01-26] MEDS: Insulin Lispro 100 UNIT/ML INSULN.PEN 8 UNIT SC (12:08)
[2020-01-26 12:16] LABS: Bedside Glucose 182 mg/dL (70-110)
[2020-01-26] MEDS: Insulin Lispro 100 UNIT/ML INSULN.PEN 10 UNIT SC (17:08)
[2020-01-26 17:35] LABS: Bedside Glucose 104 mg/dL (70-110)
[2020-01-26 21:15] LABS: Bedside Glucose 168 mg/dL (70-110)
[2020-01-26 21:35] VITALS: PULSE 72; RESP 17; O2SAT 96
[2020-01-26] MEDS: Acetaminophen 500 MG Tablet 1000 MG PO (21:43)
[2020-01-26] MEDS: amLODIPine 5 MG Tablet PO (21:43)
[2020-01-26] MEDS: Atorvastatin Calcium 40 MG Tablet PO (21:43)
[2020-01-26] MEDS: traZODone 50 MG Tablet PO (21:43)
[2020-01-26] MEDS: Petrolatum,White 3.75GM OPTH.TUBE 1 APPLIC OPHTHALMIC (21:44)
[2020-01-26 21:52] VITALS: BP 133/78; PULSE 72; RESP 17; TEMP 36.4; O2SAT 96
--- NOTE | 2020-01-27 02:35 | NURSING ---
01/26/202134: Pt refused SC Heparin injection this HS, educated on possible consequences of refusing this medication, pt verbalizes understanding.
--- NOTE | 2020-01-27 03:12 | NURSING ---
Reviewed and agree with COUPON REDEMPTION CLERK documentation and charting.
[2020-01-27 06:25] LABS: Bedside Glucose 115 mg/dL (70-110)
[2020-01-27 07:00] VITALS: BP 128/62; PULSE 67; RESP 16; TEMP 36.6; O2SAT 93
[2020-01-27] MEDS: Calcium Carbonate 500 MG Tablet PO (07:59)
[2020-01-27] MEDS: Lisinopril 2.5 MG Tablet PO (07:59)
[2020-01-27] MEDS: Clopidogrel Bisulfate 75 MG Tablet PO (07:59)
[2020-01-27 08:00] VITALS: BP 128/62; PULSE 67
[2020-01-27] MEDS: Magnesium Oxide 400 MG Tablet PO (08:00)
[2020-01-27] MEDS: Furosemide 20 MG Tablet PO (08:00)
[2020-01-27] MEDS: Amiodarone 200 MG Tablet PO (08:00)
[2020-01-27] MEDS: Allopurinol 100 MG Tablet PO (08:00)
[2020-01-27] MEDS: Aspirin 81 MG TAB.CHEW PO (08:00)
[2020-01-27] MEDS: Ciprofloxacin 250 MG Tablet PO ×2 (08:00→21:28)
[2020-01-27] MEDS: Metoprolol(XL)Succ 100 MG Tablet PO (08:00)
[2020-01-27] MEDS: Insulin Lispro 100 UNIT/ML INSULN.PEN 12 UNIT SC (08:01)
[2020-01-27] MEDS: Glycerin/Hypromellose/PEG400 15 ml Bottle 1 DRP OPHTHALMIC ×2 (08:02→21:28)
[2020-01-27 11:25] LABS: Bedside Glucose 118 mg/dL (70-110)
[2020-01-27] MEDS: Insulin Lispro 100 UNIT/ML INSULN.PEN 8 UNIT SC (12:13)
--- NOTE | 2020-01-27 14:26 | PCM.DC ---
- Discharge Diagnoses Current Active Problems: Current Active and Chronic Problems (Last Reviewed 01/17/20 @ 14:[address] Tonja Marshall, DO) CHF (congestive heart failure) (Acute) Ischemic cardiomyopathy (Acute) 30% EF S/P CABG x 4 (Chronic) 01/09/[address] [facility] by Dr. Ortiz Diverticulosis (Chronic) Internal hemorrhoids (Chronic) H/O angioplasty (Chronic) 1988 Nonrheumatic mitral valve regurgitation (Chronic) Moderate Mild atrial enlargement, left (Chronic) Benign paroxysmal positional vertigo (Chronic) Chronic renal failure, stage 3 (moderate) (Chronic) Acute blood loss anemia (Acute) after CABG Decubitus ulcer, stage II (Acute) Carotid stenosis, right (Chronic) 40 to 59% Acute renal failure superimposed on stage 3 chronic kidney disease (Acute) due to ATN post-op. Had intraoperative hypotension STEMI (ST elevation myocardial infarction) (Chronic) increased enzymes 01/03/20 - late presentation of STEMI with ACS/ongoing pain Bilateral renal cysts (Chronic) You will use the following diet at home:: Calorie/Carbohydrate Controlled (specify 1200, 1400, etc), Cardiac, Fluid restricted (specify 2000 mls, 1500 mls) - no more than 2 liters daily Your food should be the consistency of: Regular Your liquids should be the consistency of: Regular/Thin Discharge Activity: May Not Drive - until relaeased by the cardiothoracic surgeon to drive, May Shower, Use Walker - as needed if you are feeling weak or dizzy Call your doctor if your incision/area has: Continuous Slow Oozing, Sudden Increased Bleeding, Increased Pain/ Swelling, Increased Redness, Foul Smelling Discharge, Swelling at the incision site Call your doctor if you observe: Fever of 101 or Higher, Inability to urinate, Inability to have a bowel movement, Shortness of breath, Dizziness, Fainting spells, Swelling in the ankles, Chest pain, Increased palpitations (irregular heartbeat), Calf discomfort, Uncontrolled pain, - - Call your PCP if severe diarrhea ( > 5 stools a day), painful sores in the mouth, painful swallowing, rash or itching. Taking a probiotic such as Lactobacillus or Kefir can help with loose stools while taking antibiotics. Additional Instructions: 1. You need to drink enough water a day to keep your kidneys functioning well, etienne since you are on a diuretic. Try and drink at least 2635-3926 cc/daily ( this would be 40-46 ounces a day.). 2. Your heart squeezes about 30% of the blood out every time it pumps. A normal heart squuezes about 55-65% out and this is called the ejection fraction. If you get too much fluid on board then you will get SOB and go into congestive heart failure. If you do not drink enough fluid then the kidneys will fail. One of the best ways we have to tell if you are drinking the appropriate amount of fluid is to weigh yourself daily in the morning naked after going to the bathroom and to keep a record. If your weight goes up by more than 5 lbs in a week you need to cut back on salt and water until your weight is back to baseline. If the weight continues to increase call the non ferrous material handler. If your weight is going down by more than 5 lbs in a week then you need to skip a day of Torsemide and increase yourwater intake until you are back to baseline. Weigh yourself on your scale tomorrow and this will be your baseline. Following this routine will help keep you out of the hospital. 2. I think you need to follow up with a kidney doctor to keep the kidneys functioning well and prevent going on dialysis. You saw Dr. Alfonso in the hospital and her office is in the hospital here so she will be easy for you to follow up with. We are going to have home health draw some blood work on Sunday to check the kidney function and the results will be sent to Dr. Alfonso. 3. Your BP was not adequately controlled when you came to the rehab unit and we added a medication called Lisinopril but this was discontinued when the CREAT started to cimb. 4. Your HGBA1C was 7.7%. This is a little higher than I would like to see it. I would prefer it be around 7. I increased the amount of insulin you were taking and now the BS's look very good. You have had only 1 low blood sugar. I would like to see your blood sugar stay between 120 and 200 consistently. 5. If you start getting short of breath when lying down, increasingly short of breath with walking, your ankles start swelling and the weight goes up over the weekend call me please and I will tell you what to do. 6. If you have questions after you go home you can call [phone] which is the rehab unit or [phone] which is my cell phone. 7. It was a pleasure to meet you Maritza. Take care of yourself and practise social distancing. If you ever need our services again we would be happy to have you back. Be well! PS.... if you would like to follow with a local non ferrous material handler I am sure that Dr. Noel would be happy to take care of you. Pending Tests on Discharge: none Allergies/Adverse Reactions: Allergies codeine Adverse Reaction (Verified 01/03/20 11:06) Nausea/Vom/Diarrhea Medications to take at Discharge Allopurinol [Zyloprim] 100 mg PO DAILYCM 04/28/14 Denton-3 Fatty Acids/Fish Oil [Denton 3 1,000 mg Softgel] 1 ea PO DAILY 01/03/20 Albuterol Aerosols [Ventolin Aerosols] 2.5 mg INHALATION Q4H PRN PRN 01/17/20 Amiodarone HCl [Cordarone] 200 mg PO DAILY 01/17/20 Aspirin 81 mg PO DAILY 01/17/20 Atorvastatin Calcium [Lipitor] 40 mg PO QHS 01/17/20 Calcium Carbonate/Vitamin D3 [Calcium 600 + Vit D Tablet] 1 ea PO DAILY 01/17/20 Clopidogrel Bisulfate [Plavix] 75 mg PO DAILY 01/17/20 CycloSPORINE Ophthalmic [Restasis Ophthalmic] 1 drp EACH EYE BID 01/17/20 Guaifenesin [Mucinex] 600 mg PO BID PRN 01/17/20 Insulin Aspart [Novolog Flexpen] 8 units SUBCUT DAILY@1700 01/17/20 Magnesium Oxide [Mag-Ox 400] 400 mg PO DAILY 01/17/20 Metoprolol Succinate [Toprol Xl] 100 mg PO DAILY 01/17/20 Mineral Oil/Petrolatum,White [Systane Nighttime Eye Ointment] 1 applicatio TOPICAL QHS 01/17/20 Polyethylene Glycol 3350 [Miralax] 17 gm PO DAILY PRN 01/17/20 Sennosides [Senna] 2 tab PO DAILY 01/17/20 Tramadol HCl [Ultram] 50 mg PO Q6H PRN 01/17/20 Acetaminophen [Tylenol] 1,000 mg PO QHS tab 01/27/20 Acetaminophen [Tylenol] 650 mg PO Q8H PRN PRN tab 01/27/20 Insulin Glargine [Lantus SoloStar Pen] 18 units SUBCUT DAILY pen 01/27/20 Insulin Lispro [Humalog KwikPen] 10 unit SUBCUT DAILY@1700 insuln.pen 01/27/20 Insulin Lispro [Humalog KwikPen] 12 unit SUBCUT DAILY@0730 insuln.pen 01/27/20 Prochlorperazine Maleate 5 mg PO Q6H PRN PRN #10 tab 01/27/20 traZODone [Desyrel] 50 mg PO QHS #30 tab 01/27/20 Insulin Lispro [Humalog KwikPen] 6 unit SUBCUT DAILY@1200 insuln.pen 01/29/20 The following prescriptions were given: traZODone [Desyrel] 50 mg PO QHS #30 tab Transmission Status: Received by [facility] Prochlorperazine Maleate 5 mg PO Q6H PRN PRN #10 tab PRN Reason: Nausea Transmission Status: Received by [facility] Primary Care Physician: Siena Warren MD [Primary Care Provider] - Please follow up with your Primary Care Physician in: please set up a phoe appt within the next 7-10 days Test Results: Test results from this visit will be discussed in further detail at your follow-up appointment, if applicable. Please Follow Up With: cadiology Please Follow Up With: Dr. Ortiz - cardiothoracic surgery When: Sunday for a phone appt. Proposed Discharge Date: 01/29/20
--- NOTE | 2020-01-27 15:42 | DS.PCM_ITS ---
Discharge Date and Diagnosis - Problem List Patient Problems: Active and Suspected Problems (Last Reviewed 01/17/20 @ 14:[address] Tonja Marshall DO) Acute blood loss anemia (Acute) after CABG Acute renal failure superimposed on stage 3 chronic kidney disease (Acute) due to ATN post-op. Had intraoperative hypotension Date of Admission: 01/17/20 Date of Discharge: 01/28/20 - Primary Discharge Diagnosis Active and Suspected Problems (Last Reviewed 01/17/20 @ 14:[address] Tonja Marshall DO) Physical debility due to STEMI and subsequent CABG x 4 vessels Acute blood loss anemia (Acute) due to surgery. HGB has been stable in the rehab unit Acute renal failure superimposed on stage 3 chronic kidney disease (Acute) - creat on the day of DC is 1.95, non-oliguric failure Complicated urinary tract infection ( had a Park during acute hospital stay) present at admission - Sx resolved with Cipro (7 day course) Stage II decubitus ulcer on the right buttocks-resolved Recent hx of ATN following CABG due to intraoperative hypotension - Secondary Discharge Diagnosis Chronic Problems (Last Reviewed 01/17/20 @ 14:[address] Tonja Marshall DO) Ischemic cardiomyopathy (Chronic) 30% EF S/P CABG x 4 (Chronic) 01/09/20 at [facility] by Dr. Ortiz Diverticulosis (Chronic) Internal hemorrhoids (Chronic) H/O angioplasty (Chronic) 1988 Nonrheumatic mitral valve regurgitation (Chronic) Moderate Mild atrial enlargement, left (Chronic) Benign paroxysmal positional vertigo (Chronic) Chronic renal failure, stage 3 (moderate) (Chronic) Carotid stenosis, right (Chronic) 40 to 59% STEMI (ST elevation myocardial infarction) (Chronic) increased enzymes 01/03/20 - late presentation of STEMI with ACS/ongoing pain Bilateral renal cysts (Chronic) History of left heart catheterization (Chronic) 01/03/[address] 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 with no surrounding neural compression HLD (hyperlipidemia) (Chronic) Type II diabetes mellitus (Chronic) also with CAD and hx of carotid stenosis and CVA Benign hypertension (Chronic) Hospital Course and Treatment Imaging Results: Laboratory Tests 01/27/20 01/27/20 01/26/20 Range/Units 11:16 06:05 20:57 WBC (4.4-11.0) K/mm3 RBC (4.2-5.4) M/mm3 Hgb (12.0-15.0) g/dL Hct (37-47) % MCV (81-99) fL MCH (27.0-32.0) pg MCHC (32-36) g/dL RDW Std Deviation (35.1-43.9) fl RDW Coeff of Hernan (11.6-14.6) % Plt Count (150-450) K/mm3 MPV (6.2-12.0) fl Immature Gran % (Auto) (0.0-0.9) % Neut % (Auto) (47-70) % Lymph % (Auto) (19-41) % Nicholas % (Auto) (0-10) % Eos % (Auto) (0-5) % Baso % (Auto) (0-1) % Absolute Neuts (auto) (2.0-7.7) X10^3/uL Absolute Lymphs (auto) (0.83-4.51) X10^3/uL Nucleated RBC % (0-5) % Sodium (136-145) mmol/L Potassium (3.5-5.1) mmol/L Chloride (98-107) mmol/L Carbon Dioxide (21.0-32.0) mmol/L Anion Gap (5-15) BUN (7-18) mg/dL Creatinine (0.55-1.02) mg/dL Estim Creat Clear Calc ml/min Est GFR (MDRD) Af Amer (>60) mL/min Est GFR (MDRD) Non-Af (>60) mL/min BUN/Creatinine Ratio (10-20) RATIO Glucose (74-106) mg/dL Hemoglobin A1c (4.2-6.3) % Calcium (8.5-10.1) mg/dL Phosphorus (2.5-4.9) mg/dL Magnesium (1.6-2.6) mg/dL Total Bilirubin (0.20-1.00) mg/dL AST (15-37) U/L ALT (13-56) U/L Alkaline Phosphatase (45-117) U/L Total Protein (6.4-8.2) g/dL Albumin (3.2-5.0) g/dL Globulin (2.2-4.2) g/dL Albumin/Globulin Ratio (0.9-2.4) RATIO Vitamin D 25-Hydroxy ng/mL Urine Color (Yellow) Urine Clarity (Clear) Urine pH (5.0 - 8.0) Ur Specific [place] (1.002-1.030) Urine Protein (Negative) mg/dl Urine Glucose (UA) (Normal) mg/dl Urine Ketones (Negative) mg/dl Urine Occult Blood (Negative) /ul Urine Nitrite (Negative) Urine Bilirubin (Negative) mg/dL Urine Urobilinogen (Normal) mg/dl Ur Leukocyte Esterase (Negative) /ul Urine RBC (0-5) /hpf Urine WBC (0-5) /hpf Ur Squamous Epith Cells (5-10) /hpf Urine Bacteria (None Seen) /hpf Urine Mucus (<or=2+) /hpf POC Glucose 118 H 115 H 168 H (70-110) mg/dL 01/26/20 01/26/20 01/26/20 Range/Units 17:07 12:03 06:40 WBC (4.4-11.0) K/mm3 RBC (4.2-5.4) M/mm3 Hgb (12.0-15.0) g/dL Hct (37-47) % MCV (81-99) fL MCH (27.0-32.0) pg MCHC (32-36) g/dL RDW Std Deviation (35.1-43.9) fl RDW Coeff of Hernan (11.6-14.6) % Plt Count (150-450) K/mm3 MPV (6.2-12.0) fl Immature Gran % (Auto) (0.0-0.9) % Neut % (Auto) (47-70) % Lymph % (Auto) (19-41) % Nicholas % (Auto) (0-10) % Eos % (Auto) (0-5) % Baso % (Auto) (0-1) % Absolute Neuts (auto) (2.0-7.7) X10^3/uL Absolute Lymphs (auto) (0.83-4.51) X10^3/uL Nucleated RBC % (0-5) % Sodium (136-145) mmol/L Potassium (3.5-5.1) mmol/L Chloride (98-107) mmol/L Carbon Dioxide (21.0-32.0) mmol/L Anion Gap (5-15) BUN (7-18) mg/dL Creatinine (0.55-1.02) mg/dL Estim Creat Clear Calc ml/min Est GFR (MDRD) Af Amer (>60) mL/min Est GFR (MDRD) Non-Af (>60) mL/min BUN/Creatinine Ratio (10-20) RATIO Glucose (74-106) mg/dL Hemoglobin A1c (4.2-6.3) % Calcium (8.5-10.1) mg/dL Phosphorus (2.5-4.9) mg/dL Magnesium (1.6-2.6) mg/dL Total Bilirubin (0.20-1.00) mg/dL AST (15-37) U/L ALT (13-56) U/L Alkaline Phosphatase (45-117) U/L Total Protein (6.4-8.2) g/dL Albumin (3.2-5.0) g/dL Globulin (2.2-4.2) g/dL Albumin/Globulin Ratio (0.9-2.4) RATIO Vitamin D 25-Hydroxy ng/mL Urine Color (Yellow) Urine Clarity (Clear) Urine pH (5.0 - 8.0) Ur Specific [place] (1.002-1.030) Urine Protein (Negative) mg/dl Urine Glucose (UA) (Normal) mg/dl Urine Ketones (Negative) mg/dl Urine Occult Blood (Negative) /ul Urine Nitrite (Negative) Urine Bilirubin (Negative) mg/dL Urine Urobilinogen (Normal) mg/dl Ur Leukocyte Esterase (Negative) /ul Urine RBC (0-5) /hpf Urine WBC (0-5) /hpf Ur Squamous Epith Cells (5-10) /hpf Urine Bacteria (None Seen) /hpf Urine Mucus (<or=2+) /hpf POC Glucose 104 182 H 137 H (70-110) mg/dL 01/26/20 01/26/20 01/25/20 Range/Units 05:30 05:30 21:06 WBC (4.4-11.0) K/mm3 RBC (4.2-5.4) M/mm3 Hgb (12.0-15.0) g/dL Hct (37-47) % MCV (81-99) fL MCH (27.0-32.0) pg MCHC (32-36) g/dL RDW Std Deviation (35.1-43.9) fl RDW Coeff of Hernan (11.6-14.6) % Plt Count (150-450) K/mm3 MPV (6.2-12.0) fl Immature Gran % (Auto) (0.0-0.9) % Neut % (Auto) (47-70) % Lymph % (Auto) (19-41) % Nicholas % (Auto) (0-10) % Eos % (Auto) (0-5) % Baso % (Auto) (0-1) % Absolute Neuts (auto) (2.0-7.7) X10^3/uL Absolute Lymphs (auto) (0.83-4.51) X10^3/uL Nucleated RBC % (0-5) % Sodium 143 (136-145) mmol/L Potassium 3.9 (3.5-5.1) mmol/L Chloride 110 H (98-107) mmol/L Carbon Dioxide 26.0 (21.0-32.0) mmol/L Anion Gap 7 (5-15) BUN 30 H (7-18) mg/dL Creatinine 1.79 H (0.55-1.02) mg/dL Estim Creat Clear Calc 19.16 ml/min Est GFR (MDRD) Af Amer 35 L (>60) mL/min Est GFR (MDRD) Non-Af 29 L (>60) mL/min BUN/Creatinine Ratio 16.8 (10-20) RATIO Glucose 134 H (74-106) mg/dL Hemoglobin A1c (4.2-6.3) % Calcium 9.0 (8.5-10.1) mg/dL Phosphorus (2.5-4.9) mg/dL Magnesium 1.8 (1.6-2.6) mg/dL Total Bilirubin (0.20-1.00) mg/dL AST (15-37) U/L ALT (13-56) U/L Alkaline Phosphatase (45-117) U/L Total Protein (6.4-8.2) g/dL Albumin (3.2-5.0) g/dL Globulin (2.2-4.2) g/dL Albumin/Globulin Ratio (0.9-2.4) RATIO Vitamin D 25-Hydroxy 69.5 ng/mL Urine Color (Yellow) Urine Clarity (Clear) Urine pH (5.0 - 8.0) Ur Specific [place] (1.002-1.030) Urine Protein (Negative) mg/dl Urine Glucose (UA) (Normal) mg/dl Urine Ketones (Negative) mg/dl Urine Occult Blood (Negative) /ul Urine Nitrite (Negative) Urine Bilirubin (Negative) mg/dL Urine Urobilinogen (Normal) mg/dl Ur Leukocyte Esterase (Negative) /ul Urine RBC (0-5) /hpf Urine WBC (0-5) /hpf Ur Squamous Epith Cells (5-10) /hpf Urine Bacteria (None Seen) /hpf Urine Mucus (<or=2+) /hpf POC Glucose 83 (70-110) mg/dL 01/25/20 01/25/20 01/25/20 Range/Units 17:05 11:17 06:46 WBC (4.4-11.0) K/mm3 RBC (4.2-5.4) M/mm3 Hgb (12.0-15.0) g/dL Hct (37-47) % MCV (81-99) fL MCH (27.0-32.0) pg MCHC (32-36) g/dL RDW Std Deviation (35.1-43.9) fl RDW Coeff of Hernan (11.6-14.6) % Plt Count (150-450) K/mm3 MPV (6.2-12.0) fl Immature Gran % (Auto) (0.0-0.9) % Neut % (Auto) (47-70) % Lymph % (Auto) (19-41) % Nicholas % (Auto) (0-10) % Eos % (Auto) (0-5) % Baso % (Auto) (0-1) % Absolute Neuts (auto) (2.0-7.7) X10^3/uL Absolute Lymphs (auto) (0.83-4.51) X10^3/uL Nucleated RBC % (0-5) % Sodium (136-145) mmol/L Potassium (3.5-5.1) mmol/L Chloride (98-107) mmol/L Carbon Dioxide (21.0-32.0) mmol/L Anion Gap (5-15) BUN (7-18) mg/dL Creatinine (0.55-1.02) mg/dL Estim Creat Clear Calc ml/min Est GFR (MDRD) Af Amer (>60) mL/min Est GFR (MDRD) Non-Af (>60) mL/min BUN/Creatinine Ratio (10-20) RATIO Glucose (74-106) mg/dL Hemoglobin A1c (4.2-6.3) % Calcium (8.5-10.1) mg/dL Phosphorus (2.5-4.9) mg/dL Magnesium (1.6-2.6) mg/dL Total Bilirubin (0.20-1.00) mg/dL AST (15-37) U/L ALT (13-56) U/L Alkaline Phosphatase (45-117) U/L Total Protein (6.4-8.2) g/dL Albumin (3.2-5.0) g/dL Globulin (2.2-4.2) g/dL Albumin/Globulin Ratio (0.9-2.4) RATIO Vitamin D 25-Hydroxy ng/mL Urine Color (Yellow) Urine Clarity (Clear) Urine pH (5.0 - 8.0) Ur Specific [place] (1.002-1.030) Urine Protein (Negative) mg/dl Urine Glucose (UA) (Normal) mg/dl Urine Ketones (Negative) mg/dl Urine Occult Blood (Negative) /ul Urine Nitrite (Negative) Urine Bilirubin (Negative) mg/dL Urine Urobilinogen (Normal) mg/dl Ur Leukocyte Esterase (Negative) /ul Urine RBC (0-5) /hpf Urine WBC (0-5) /hpf Ur Squamous Epith Cells (5-10) /hpf Urine Bacteria (None Seen) /hpf Urine Mucus (<or=2+) /hpf POC Glucose 101 175 H 137 H (70-110) mg/dL 01/24/20 01/24/20 01/24/20 Range/Units 21:14 16:49 11:22 WBC (4.4-11.0) K/mm3 RBC (4.2-5.4) M/mm3 Hgb (12.0-15.0) g/dL Hct (37-47) % MCV (81-99) fL MCH (27.0-32.0) pg MCHC (32-36) g/dL RDW Std Deviation (35.1-43.9) fl RDW Coeff of Hernan (11.6-14.6) % Plt Count (150-450) K/mm3 MPV (6.2-12.0) fl Immature Gran % (Auto) (0.0-0.9) % Neut % (Auto) (47-70) % Lymph % (Auto) (19-41) % Nicholas % (Auto) (0-10) % Eos % (Auto) (0-5) % Baso % (Auto) (0-1) % Absolute Neuts (auto) (2.0-7.7) X10^3/uL Absolute Lymphs (auto) (0.83-4.51) X10^3/uL Nucleated RBC % (0-5) % Sodium (136-145) mmol/L Potassium (3.5-5.1) mmol/L Chloride (98-107) mmol/L Carbon Dioxide (21.0-32.0) mmol/L Anion Gap (5-15) BUN (7-18) mg/dL Creatinine (0.55-1.02) mg/dL Estim Creat Clear Calc ml/min Est GFR (MDRD) Af Amer (>60) mL/min Est GFR (MDRD) Non-Af (>60) mL/min BUN/Creatinine Ratio (10-20) RATIO Glucose (74-106) mg/dL Hemoglobin A1c (4.2-6.3) % Calcium (8.5-10.1) mg/dL Phosphorus (2.5-4.9) mg/dL Magnesium (1.6-2.6) mg/dL Total Bilirubin (0.20-1.00) mg/dL AST (15-37) U/L ALT (13-56) U/L Alkaline Phosphatase (45-117) U/L Total Protein (6.4-8.2) g/dL Albumin (3.2-5.0) g/dL Globulin (2.2-4.2) g/dL Albumin/Globulin Ratio (0.9-2.4) RATIO Vitamin D 25-Hydroxy ng/mL Urine Color (Yellow) Urine Clarity (Clear) Urine pH (5.0 - 8.0) Ur Specific [place] (1.002-1.030) Urine Protein (Negative) mg/dl Urine Glucose (UA) (Normal) mg/dl Urine Ketones (Negative) mg/dl Urine Occult Blood (Negative) /ul Urine Nitrite (Negative) Urine Bilirubin (Negative) mg/dL Urine Urobilinogen (Normal) mg/dl Ur Leukocyte Esterase (Negative) /ul Urine RBC (0-5) /hpf Urine WBC (0-5) /hpf Ur Squamous Epith Cells (5-10) /hpf Urine Bacteria (None Seen) /hpf Urine Mucus (<or=2+) /hpf POC Glucose 180 H 170 H 132 H (70-110) mg/dL 01/24/20 01/23/20 01/23/20 Range/Units 06:44 21:42 16:17 WBC (4.4-11.0) K/mm3 RBC (4.2-5.4) M/mm3 Hgb (12.0-15.0) g/dL Hct (37-47) % MCV (81-99) fL MCH (27.0-32.0) pg MCHC (32-36) g/dL RDW Std Deviation (35.1-43.9) fl RDW Coeff of Hernan (11.6-14.6) % Plt Count (150-450) K/mm3 MPV (6.2-12.0) fl Immature Gran % (Auto) (0.0-0.9) % Neut % (Auto) (47-70) % Lymph % (Auto) (19-41) % Nicholas % (Auto) (0-10) % Eos % (Auto) (0-5) % Baso % (Auto) (0-1) % Absolute Neuts (auto) (2.0-7.7) X10^3/uL Absolute Lymphs (auto) (0.83-4.51) X10^3/uL Nucleated RBC % (0-5) % Sodium (136-145) mmol/L Potassium (3.5-5.1) mmol/L Chloride (98-107) mmol/L Carbon Dioxide (21.0-32.0) mmol/L Anion Gap (5-15) BUN (7-18) mg/dL Creatinine (0.55-1.02) mg/dL Estim Creat Clear Calc ml/min Est GFR (MDRD) Af Amer (>60) mL/min Est GFR (MDRD) Non-Af (>60) mL/min BUN/Creatinine Ratio (10-20) RATIO Glucose (74-106) mg/dL Hemoglobin A1c (4.2-6.3) % Calcium (8.5-10.1) mg/dL Phosphorus (2.5-4.9) mg/dL Magnesium (1.6-2.6) mg/dL Total Bilirubin (0.20-1.00) mg/dL AST (15-37) U/L ALT (13-56) U/L Alkaline Phosphatase (45-117) U/L Total Protein (6.4-8.2) g/dL Albumin (3.2-5.0) g/dL Globulin (2.2-4.2) g/dL Albumin/Globulin Ratio (0.9-2.4) RATIO Vitamin D 25-Hydroxy ng/mL Urine Color (Yellow) Urine Clarity (Clear) Urine pH (5.0 - 8.0) Ur Specific [place] (1.002-1.030) Urine Protein (Negative) mg/dl Urine Glucose (UA) (Normal) mg/dl Urine Ketones (Negative) mg/dl Urine Occult Blood (Negative) /ul Urine Nitrite (Negative) Urine Bilirubin (Negative) mg/dL Urine Urobilinogen (Normal) mg/dl Ur Leukocyte Esterase (Negative) /ul Urine RBC (0-5) /hpf Urine WBC (0-5) /hpf Ur Squamous Epith Cells (5-10) /hpf Urine Bacteria (None Seen) /hpf Urine Mucus (<or=2+) /hpf POC Glucose 174 H 233 H 227 H (70-110) mg/dL 01/23/20 01/23/20 01/22/20 Range/Units 11:27 06:23 21:53 WBC (4.4-11.0) K/mm3 RBC (4.2-5.4) M/mm3 Hgb (12.0-15.0) g/dL Hct (37-47) % MCV (81-99) fL MCH (27.0-32.0) pg MCHC (32-36) g/dL RDW Std Deviation (35.1-43.9) fl RDW Coeff of Hernan (11.6-14.6) % Plt Count (150-450) K/mm3 MPV (6.2-12.0) fl Immature Gran % (Auto) (0.0-0.9) % Neut % (Auto) (47-70) % Lymph % (Auto) (19-41) % Nicholas % (Auto) (0-10) % Eos % (Auto) (0-5) % Baso % (Auto) (0-1) % Absolute Neuts (auto) (2.0-7.7) X10^3/uL Absolute Lymphs (auto) (0.83-4.51) X10^3/uL Nucleated RBC % (0-5) % Sodium (136-145) mmol/L Potassium (3.5-5.1) mmol/L Chloride (98-107) mmol/L Carbon Dioxide (21.0-32.0) mmol/L Anion Gap (5-15) BUN (7-18) mg/dL Creatinine (0.55-1.02) mg/dL Estim Creat Clear Calc ml/min Est GFR (MDRD) Af Amer (>60) mL/min Est GFR (MDRD) Non-Af (>60) mL/min BUN/Creatinine Ratio (10-20) RATIO Glucose (74-106) mg/dL Hemoglobin A1c (4.2-6.3) % Calcium (8.5-10.1) mg/dL Phosphorus (2.5-4.9) mg/dL Magnesium (1.6-2.6) mg/dL Total Bilirubin (0.20-1.00) mg/dL AST (15-37) U/L ALT (13-56) U/L Alkaline Phosphatase (45-117) U/L Total Protein (6.4-8.2) g/dL Albumin (3.2-5.0) g/dL Globulin (2.2-4.2) g/dL Albumin/Globulin Ratio (0.9-2.4) RATIO Vitamin D 25-Hydroxy ng/mL Urine Color (Yellow) Urine Clarity (Clear) Urine pH (5.0 - 8.0) Ur Specific [place] (1.002-1.030) Urine Protein (Negative) mg/dl Urine Glucose (UA) (Normal) mg/dl Urine Ketones (Negative) mg/dl Urine Occult Blood (Negative) /ul Urine Nitrite (Negative) Urine Bilirubin (Negative) mg/dL Urine Urobilinogen (Normal) mg/dl Ur Leukocyte Esterase (Negative) /ul Urine RBC (0-5) /hpf Urine WBC (0-5) /hpf Ur Squamous Epith Cells (5-10) /hpf Urine Bacteria (None Seen) /hpf Urine Mucus (<or=2+) /hpf POC Glucose 220 H 123 H 115 H (70-110) mg/dL 01/22/20 01/22/20 01/22/20 Range/Units 16:49 12:01 06:25 WBC (4.4-11.0) K/mm3 RBC (4.2-5.4) M/mm3 Hgb (12.0-15.0) g/dL Hct (37-47) % MCV (81-99) fL MCH (27.0-32.0) pg MCHC (32-36) g/dL RDW Std Deviation (35.1-43.9) fl RDW Coeff of Hernan (11.6-14.6) % Plt Count (150-450) K/mm3 MPV (6.2-12.0) fl Immature Gran % (Auto) (0.0-0.9) % Neut % (Auto) (47-70) % Lymph % (Auto) (19-41) % Nicholas % (Auto) (0-10) % Eos % (Auto) (0-5) % Baso % (Auto) (0-1) % Absolute Neuts (auto) (2.0-7.7) X10^3/uL Absolute Lymphs (auto) (0.83-4.51) X10^3/uL Nucleated RBC % (0-5) % Sodium (136-145) mmol/L Potassium (3.5-5.1) mmol/L Chloride (98-107) mmol/L Carbon Dioxide (21.0-32.0) mmol/L Anion Gap (5-15) BUN (7-18) mg/dL Creatinine (0.55-1.02) mg/dL Estim Creat Clear Calc ml/min Est GFR (MDRD) Af Amer (>60) mL/min Est GFR (MDRD) Non-Af (>60) mL/min BUN/Creatinine Ratio (10-20) RATIO Glucose (74-106) mg/dL Hemoglobin A1c (4.2-6.3) % Calcium (8.5-10.1) mg/dL Phosphorus (2.5-4.9) mg/dL Magnesium (1.6-2.6) mg/dL Total Bilirubin (0.20-1.00) mg/dL AST (15-37) U/L ALT (13-56) U/L Alkaline Phosphatase (45-117) U/L Total Protein (6.4-8.2) g/dL Albumin (3.2-5.0) g/dL Globulin (2.2-4.2) g/dL Albumin/Globulin Ratio (0.9-2.4) RATIO Vitamin D 25-Hydroxy ng/mL Urine Color (Yellow) Urine Clarity (Clear) Urine pH (5.0 - 8.0) Ur Specific [place] (1.002-1.030) Urine Protein (Negative) mg/dl Urine Glucose (UA) (Normal) mg/dl Urine Ketones (Negative) mg/dl Urine Occult Blood (Negative) /ul Urine Nitrite (Negative) Urine Bilirubin (Negative) mg/dL Urine Urobilinogen (Normal) mg/dl Ur Leukocyte Esterase (Negative) /ul Urine RBC (0-5) /hpf Urine WBC (0-5) /hpf Ur Squamous Epith Cells (5-10) /hpf Urine Bacteria (None Seen) /hpf Urine Mucus (<or=2+) /hpf POC Glucose 161 H 153 H 132 H (70-110) mg/dL 01/21/20 01/21/20 01/21/20 Range/Units 21:42 16:32 12:11 WBC (4.4-11.0) K/mm3 RBC (4.2-5.4) M/mm3 Hgb (12.0-15.0) g/dL Hct (37-47) % MCV (81-99) fL MCH (27.0-32.0) pg MCHC (32-36) g/dL RDW Std Deviation (35.1-43.9) fl RDW Coeff of Hernan (11.6-14.6) % Plt Count (150-450) K/mm3 MPV (6.2-12.0) fl Immature Gran % (Auto) (0.0-0.9) % Neut % (Auto) (47-70) % Lymph % (Auto) (19-41) % Nicholas % (Auto) (0-10) % Eos % (Auto) (0-5) % Baso % (Auto) (0-1) % Absolute Neuts (auto) (2.0-7.7) X10^3/uL Absolute Lymphs (auto) (0.83-4.51) X10^3/uL Nucleated RBC % (0-5) % Sodium (136-145) mmol/L Potassium (3.5-5.1) mmol/L Chloride (98-107) mmol/L Carbon Dioxide (21.0-32.0) mmol/L Anion Gap (5-15) BUN (7-18) mg/dL Creatinine (0.55-1.02) mg/dL Estim Creat Clear Calc ml/min Est GFR (MDRD) Af Amer (>60) mL/min Est GFR (MDRD) Non-Af (>60) mL/min BUN/Creatinine Ratio (10-20) RATIO Glucose (74-106) mg/dL Hemoglobin A1c (4.2-6.3) % Calcium (8.5-10.1) mg/dL Phosphorus (2.5-4.9) mg/dL Magnesium (1.6-2.6) mg/dL Total Bilirubin (0.20-1.00) mg/dL AST (15-37) U/L ALT (13-56) U/L Alkaline Phosphatase (45-117) U/L Total Protein (6.4-8.2) g/dL Albumin (3.2-5.0) g/dL Globulin (2.2-4.2) g/dL Albumin/Globulin Ratio (0.9-2.4) RATIO Vitamin D 25-Hydroxy ng/mL Urine Color Yellow (Yellow) Urine Clarity Clear (Clear) Urine pH 6.5 (5.0 - 8.0) Ur Specific [place] 1.005 (1.002-1.030) Urine Protein 30 H (Negative) mg/dl Urine Glucose (UA) Normal (Normal) mg/dl Urine Ketones Negative (Negative) mg/dl Urine Occult Blood 10 H (Negative) /ul Urine Nitrite Negative (Negative) Urine Bilirubin Negative (Negative) mg/dL Urine Urobilinogen Normal (Normal) mg/dl Ur Leukocyte Esterase 100 H (Negative) /ul Urine RBC 0-5 SEEN (0-5) /hpf Urine WBC 5-10 SEEN (0-5) /hpf Ur Squamous Epith Cells 0-5 SEEN (5-10) /hpf Urine Bacteria RARE (None Seen) /hpf Urine Mucus 0 SEEN (<or=2+) /hpf POC Glucose 158 H 239 H (70-110) mg/dL 01/21/20 01/21/20 01/21/20 Range/Units 11:30 06:34 05:30 WBC (4.4-11.0) K/mm3 RBC (4.2-5.4) M/mm3 Hgb (12.0-15.0) g/dL Hct (37-47) % MCV (81-99) fL MCH (27.0-32.0) pg MCHC (32-36) g/dL RDW Std Deviation (35.1-43.9) fl RDW Coeff of [place]an (11.6-14.6) % Plt Count (150-450) K/mm3 MPV (6.2-12.0) fl Immature Gran % (Auto) (0.0-0.9) % Neut % (Auto) (47-70) % Lymph % (Auto) (19-41) % Nicholas % (Auto) (0-10) % Eos % (Auto) (0-5) % Baso % (Auto) (0-1) % Absolute Neuts (auto) (2.0-7.7) X10^3/uL Absolute Lymphs (auto) (0.83-4.51) X10^3/uL Nucleated RBC % (0-5) % Sodium 140 (136-145) mmol/L Potassium 3.9 (3.5-5.1) mmol/L Chloride 107 (98-107) mmol/L Carbon Dioxide 25.0 (21.0-32.0) mmol/L Anion Gap 8 (5-15) BUN 29 H (7-18) mg/dL Creatinine 1.52 H (0.55-1.02) mg/dL Estim Creat Clear Calc 22.57 ml/min Est GFR (MDRD) Af Amer 42 L (>60) mL/min Est GFR (MDRD) Non-Af 35 L (>60) mL/min BUN/Creatinine Ratio 19.1 (10-20) RATIO Glucose 98 (74-106) mg/dL Hemoglobin A1c (4.2-6.3) % Calcium 8.5 (8.5-10.1) mg/dL Phosphorus (2.5-4.9) mg/dL Magnesium (1.6-2.6) mg/dL Total Bilirubin (0.20-1.00) mg/dL AST (15-37) U/L ALT (13-56) U/L Alkaline Phosphatase (45-117) U/L Total Protein (6.4-8.2) g/dL Albumin (3.2-5.0) g/dL Globulin (2.2-4.2) g/dL Albumin/Globulin Ratio (0.9-2.4) RATIO Vitamin D 25-Hydroxy ng/mL Urine Color (Yellow) Urine Clarity (Clear) Urine pH (5.0 - 8.0) Ur Specific [place] (1.002-1.030) Urine Protein (Negative) mg/dl Urine Glucose (UA) (Normal) mg/dl Urine Ketones (Negative) mg/dl Urine Occult Blood (Negative) /ul Urine Nitrite (Negative) Urine Bilirubin (Negative) mg/dL Urine Urobilinogen (Normal) mg/dl Ur Leukocyte Esterase (Negative) /ul Urine RBC (0-5) /hpf Urine WBC (0-5) /hpf Ur Squamous Epith Cells (5-10) /hpf Urine Bacteria (None Seen) /hpf Urine Mucus (<or=2+) /hpf POC Glucose 167 H 109 (70-110) mg/dL 01/21/20 01/20/20 01/20/20 Range/Units 05:30 16:36 11:23 WBC 8.3 (4.4-11.0) K/mm3 RBC 3.31 L (4.2-5.4) M/mm3 Hgb 10.0 L (12.0-15.0) g/dL Hct 31.1 L (37-47) % MCV 94.0 (81-99) fL MCH 30.2 (27.0-32.0) pg MCHC 32.2 (32-36) g/dL RDW Std Deviation 51.9 H (35.1-43.9) fl RDW Coeff of Hernan 15.1 H (11.6-14.6) % Plt Count 443 (150-450) K/mm3 MPV 10.2 (6.2-12.0) fl Immature Gran % (Auto) (0.0-0.9) % Neut % (Auto) (47-70) % Lymph % (Auto) (19-41) % Nicholas % (Auto) (0-10) % Eos % (Auto) (0-5) % Baso % (Auto) (0-1) % Absolute Neuts (auto) (2.0-7.7) X10^3/uL Absolute Lymphs (auto) (0.83-4.51) X10^3/uL Nucleated RBC % (0-5) % Sodium (136-145) mmol/L Potassium (3.5-5.1) mmol/L Chloride (98-107) mmol/L Carbon Dioxide (21.0-32.0) mmol/L Anion Gap (5-15) BUN (7-18) mg/dL Creatinine (0.55-1.02) mg/dL Estim Creat Clear Calc ml/min Est GFR (MDRD) Af Amer (>60) mL/min Est GFR (MDRD) Non-Af (>60) mL/min BUN/Creatinine Ratio (10-20) RATIO Glucose (74-106) mg/dL Hemoglobin A1c (4.2-6.3) % Calcium (8.5-10.1) mg/dL Phosphorus (2.5-4.9) mg/dL Magnesium (1.6-2.6) mg/dL Total Bilirubin (0.20-1.00) mg/dL AST (15-37) U/L ALT (13-56) U/L Alkaline Phosphatase (45-117) U/L Total Protein (6.4-8.2) g/dL Albumin (3.2-5.0) g/dL Globulin (2.2-4.2) g/dL Albumin/Globulin Ratio (0.9-2.4) RATIO Vitamin D 25-Hydroxy ng/mL Urine Color (Yellow) Urine Clarity (Clear) Urine pH (5.0 - 8.0) Ur Specific [place] (1.002-1.030) Urine Protein (Negative) mg/dl Urine Glucose (UA) (Normal) mg/dl Urine Ketones (Negative) mg/dl Urine Occult Blood (Negative) /ul Urine Nitrite (Negative) Urine Bilirubin (Negative) mg/dL Urine Urobilinogen (Normal) mg/dl Ur Leukocyte Esterase (Negative) /ul Urine RBC (0-5) /hpf Urine WBC (0-5) /hpf Ur Squamous Epith Cells (5-10) /hpf Urine Bacteria (None Seen) /hpf Urine Mucus (<or=2+) /hpf POC Glucose 125 H 174 H (70-110) mg/dL 01/20/20 01/19/20 01/19/20 Range/Units 06:55 21:10 16:26 WBC (4.4-11.0) K/mm3 RBC (4.2-5.4) M/mm3 Hgb (12.0-15.0) g/dL Hct (37-47) % MCV (81-99) fL MCH (27.0-32.0) pg MCHC (32-36) g/dL RDW Std Deviation (35.1-43.9) fl RDW Coeff of Hernan (11.6-14.6) % Plt Count (150-450) K/mm3 MPV (6.2-12.0) fl Immature Gran % (Auto) (0.0-0.9) % Neut % (Auto) (47-70) % Lymph % (Auto) (19-41) % Nicholas % (Auto) (0-10) % Eos % (Auto) (0-5) % Baso % (Auto) (0-1) % Absolute Neuts (auto) (2.0-7.7) X10^3/uL Absolute Lymphs (auto) (0.83-4.51) X10^3/uL Nucleated RBC % (0-5) % Sodium (136-145) mmol/L Potassium (3.5-5.1) mmol/L Chloride (98-107) mmol/L Carbon Dioxide (21.0-32.0) mmol/L Anion Gap (5-15) BUN (7-18) mg/dL Creatinine (0.55-1.02) mg/dL Estim Creat Clear Calc ml/min Est GFR (MDRD) Af Amer (>60) mL/min Est GFR (MDRD) Non-Af (>60) mL/min BUN/Creatinine Ratio (10-20) RATIO Glucose (74-106) mg/dL Hemoglobin A1c (4.2-6.3) % Calcium (8.5-10.1) mg/dL Phosphorus (2.5-4.9) mg/dL Magnesium (1.6-2.6) mg/dL Total Bilirubin (0.20-1.00) mg/dL AST (15-37) U/L ALT (13-56) U/L Alkaline Phosphatase (45-117) U/L Total Protein (6.4-8.2) g/dL Albumin (3.2-5.0) g/dL Globulin (2.2-4.2) g/dL Albumin/Globulin Ratio (0.9-2.4) RATIO Vitamin D 25-Hydroxy ng/mL Urine Color (Yellow) Urine Clarity (Clear) Urine pH (5.0 - 8.0) Ur Specific [place] (1.002-1.030) Urine Protein (Negative) mg/dl Urine Glucose (UA) (Normal) mg/dl Urine Ketones (Negative) mg/dl Urine Occult Blood (Negative) /ul Urine Nitrite (Negative) Urine Bilirubin (Negative) mg/dL Urine Urobilinogen (Normal) mg/dl Ur Leukocyte Esterase (Negative) /ul Urine RBC (0-5) /hpf Urine WBC (0-5) /hpf Ur Squamous Epith Cells (5-10) /hpf Urine Bacteria (None Seen) /hpf Urine Mucus (<or=2+) /hpf POC Glucose 135 H 93 116 H (70-110) mg/dL 01/19/20 01/19/20 01/19/20 Range/Units 11:44 06:09 05:25 WBC (4.4-11.0) K/mm3 RBC (4.2-5.4) M/mm3 Hgb (12.0-15.0) g/dL Hct (37-47) % MCV (81-99) fL MCH (27.0-32.0) pg MCHC (32-36) g/dL RDW Std Deviation (35.1-43.9) fl RDW Coeff of Hernan (11.6-14.6) % Plt Count (150-450) K/mm3 MPV (6.2-12.0) fl Immature Gran % (Auto) (0.0-0.9) % Neut % (Auto) (47-70) % Lymph % (Auto) (19-41) % Nicholas % (Auto) (0-10) % Eos % (Auto) (0-5) % Baso % (Auto) (0-1) % Absolute Neuts (auto) (2.0-7.7) X10^3/uL Absolute Lymphs (auto) (0.83-4.51) X10^3/uL Nucleated RBC % (0-5) % Sodium 139 (136-145) mmol/L Potassium 4.1 (3.5-5.1) mmol/L Chloride 108 H (98-107) mmol/L Carbon Dioxide 24.0 (21.0-32.0) mmol/L Anion Gap 7 (5-15) BUN 43 H (7-18) mg/dL Creatinine 1.68 H (0.55-1.02) mg/dL Estim Creat Clear Calc 20.42 ml/min Est GFR (MDRD) Af Amer 37 L (>60) mL/min Est GFR (MDRD) Non-Af 31 L (>60) mL/min BUN/Creatinine Ratio 25.6 H (10-20) RATIO Glucose 166 H (74-106) mg/dL Hemoglobin A1c (4.2-6.3) % Calcium 8.3 L (8.5-10.1) mg/dL Phosphorus (2.5-4.9) mg/dL Magnesium (1.6-2.6) mg/dL Total Bilirubin (0.20-1.00) mg/dL AST (15-37) U/L ALT (13-56) U/L Alkaline Phosphatase (45-117) U/L Total Protein (6.4-8.2) g/dL Albumin (3.2-5.0) g/dL Globulin (2.2-4.2) g/dL Albumin/Globulin Ratio (0.9-2.4) RATIO Vitamin D 25-Hydroxy ng/mL Urine Color (Yellow) Urine Clarity (Clear) Urine pH (5.0 - 8.0) Ur Specific [place] (1.002-1.030) Urine Protein (Negative) mg/dl Urine Glucose (UA) (Normal) mg/dl Urine Ketones (Negative) mg/dl Urine Occult Blood (Negative) /ul Urine Nitrite (Negative) Urine Bilirubin (Negative) mg/dL Urine Urobilinogen (Normal) mg/dl Ur Leukocyte Esterase (Negative) /ul Urine RBC (0-5) /hpf Urine WBC (0-5) /hpf Ur Squamous Epith Cells (5-10) /hpf Urine Bacteria (None Seen) /hpf Urine Mucus (<or=2+) /hpf POC Glucose 220 H 205 H (70-110) mg/dL 01/18/20 01/18/20 01/18/20 Range/Units 21:34 16:54 11:07 WBC (4.4-11.0) K/mm3 RBC (4.2-5.4) M/mm3 Hgb (12.0-15.0) g/dL Hct (37-47) % MCV (81-99) fL MCH (27.0-32.0) pg MCHC (32-36) g/dL RDW Std Deviation (35.1-43.9) fl RDW Coeff of Hernan (11.6-14.6) % Plt Count (150-450) K/mm3 MPV (6.2-12.0) fl Immature Gran % (Auto) (0.0-0.9) % Neut % (Auto) (47-70) % Lymph % (Auto) (19-41) % Nicholas % (Auto) (0-10) % Eos % (Auto) (0-5) % Baso % (Auto) (0-1) % Absolute Neuts (auto) (2.0-7.7) X10^3/uL Absolute Lymphs (auto) (0.83-4.51) X10^3/uL Nucleated RBC % (0-5) % Sodium (136-145) mmol/L Potassium (3.5-5.1) mmol/L Chloride (98-107) mmol/L Carbon Dioxide (21.0-32.0) mmol/L Anion Gap (5-15) BUN (7-18) mg/dL Creatinine (0.55-1.02) mg/dL Estim Creat Clear Calc ml/min Est GFR (MDRD) Af Amer (>60) mL/min Est GFR (MDRD) Non-Af (>60) mL/min BUN/Creatinine Ratio (10-20) RATIO Glucose (74-106) mg/dL Hemoglobin A1c (4.2-6.3) % Calcium (8.5-10.1) mg/dL Phosphorus (2.5-4.9) mg/dL Magnesium (1.6-2.6) mg/dL Total Bilirubin (0.20-1.00) mg/dL AST (15-37) U/L ALT (13-56) U/L Alkaline Phosphatase (45-117) U/L Total Protein (6.4-8.2) g/dL Albumin (3.2-5.0) g/dL Globulin (2.2-4.2) g/dL Albumin/Globulin Ratio (0.9-2.4) RATIO Vitamin D 25-Hydroxy ng/mL Urine Color (Yellow) Urine Clarity (Clear) Urine pH (5.0 - 8.0) Ur Specific [place] (1.002-1.030) Urine Protein (Negative) mg/dl Urine Glucose (UA) (Normal) mg/dl Urine Ketones (Negative) mg/dl Urine Occult Blood (Negative) /ul Urine Nitrite (Negative) Urine Bilirubin (Negative) mg/dL Urine Urobilinogen (Normal) mg/dl Ur Leukocyte Esterase (Negative) /ul Urine RBC (0-5) /hpf Urine WBC (0-5) /hpf Ur Squamous Epith Cells (5-10) /hpf Urine Bacteria (None Seen) /hpf Urine Mucus (<or=2+) /hpf POC Glucose 148 H 138 H 179 H (70-110) mg/dL 01/18/20 01/18/20 01/18/20 Range/Units 06:10 06:07 06:07 WBC (4.4-11.0) K/mm3 RBC (4.2-5.4) M/mm3 Hgb (12.0-15.0) g/dL Hct (37-47) % MCV (81-99) fL MCH (27.0-32.0) pg MCHC (32-36) g/dL RDW Std Deviation (35.1-43.9) fl RDW Coeff of Hernan (11.6-14.6) % Plt Count (150-450) K/mm3 MPV (6.2-12.0) fl Immature Gran % (Auto) (0.0-0.9) % Neut % (Auto) (47-70) % Lymph % (Auto) (19-41) % Nicholas % (Auto) (0-10) % Eos % (Auto) (0-5) % Baso % (Auto) (0-1) % Absolute Neuts (auto) (2.0-7.7) X10^3/uL Absolute Lymphs (auto) (0.83-4.51) X10^3/uL Nucleated RBC % (0-5) % Sodium 141 (136-145) mmol/L Potassium 3.8 (3.5-5.1) mmol/L Chloride 110 H (98-107) mmol/L Carbon Dioxide 23.0 (21.0-32.0) mmol/L Anion Gap 8 (5-15) BUN 37 H (7-18) mg/dL Creatinine 1.58 H (0.55-1.02) mg/dL Estim Creat Clear Calc 21.71 ml/min Est GFR (MDRD) Af Amer 40 L (>60) mL/min Est GFR (MDRD) Non-Af 33 L (>60) mL/min BUN/Creatinine Ratio 23.4 H (10-20) RATIO Glucose 160 H (74-106) mg/dL Hemoglobin A1c 7.7 H (4.2-6.3) % Calcium 8.4 L (8.5-10.1) mg/dL Phosphorus 2.8 (2.5-4.9) mg/dL Magnesium 1.6 (1.6-2.6) mg/dL Total Bilirubin 0.70 (0.20-1.00) mg/dL AST 15 (15-37) U/L ALT 12 L (13-56) U/L Alkaline Phosphatase 69 (45-117) U/L Total Protein 6.0 L (6.4-8.2) g/dL Albumin 2.6 L (3.2-5.0) g/dL Globulin 3.4 (2.2-4.2) g/dL Albumin/Globulin Ratio 0.8 L (0.9-2.4) RATIO Vitamin D 25-Hydroxy ng/mL Urine Color (Yellow) Urine Clarity (Clear) Urine pH (5.0 - 8.0) Ur Specific [place] (1.002-1.030) Urine Protein (Negative) mg/dl Urine Glucose (UA) (Normal) mg/dl Urine Ketones (Negative) mg/dl Urine Occult Blood (Negative) /ul Urine Nitrite (Negative) Urine Bilirubin (Negative) mg/dL Urine Urobilinogen (Normal) mg/dl Ur Leukocyte Esterase (Negative) /ul Urine RBC (0-5) /hpf Urine WBC (0-5) /hpf Ur Squamous Epith Cells (5-10) /hpf Urine Bacteria (None Seen) /hpf Urine Mucus (<or=2+) /hpf POC Glucose 157 H (70-110) mg/dL 01/18/20 01/17/20 01/17/20 Range/Units 06:07 21:29 16:52 WBC 8.5 (4.4-11.0) K/mm3 RBC 3.26 L (4.2-5.4) M/mm3 Hgb 9.9 L (12.0-15.0) g/dL Hct 30.6 L (37-47) % MCV 93.9 (81-99) fL MCH 30.4 (27.0-32.0) pg MCHC 32.4 (32-36) g/dL RDW Std Deviation 51.1 H (35.1-43.9) fl RDW Coeff of Hernan 15.1 H (11.6-14.6) % Plt Count 359 (150-450) K/mm3 MPV 10.5 (6.2-12.0) fl Immature Gran % (Auto) 0.700 (0.0-0.9) % Neut % (Auto) 66.3 (47-70) % Lymph % (Auto) 22.5 (19-41) % Nicholas % (Auto) 9.1 (0-10) % Eos % (Auto) 0.9 (0-5) % Baso % (Auto) 0.5 (0-1) % Absolute Neuts (auto) 5.6 (2.0-7.7) X10^3/uL Absolute Lymphs (auto) 1.91 (0.83-4.51) X10^3/uL Nucleated RBC % 0 (0-5) % Sodium (136-145) mmol/L Potassium (3.5-5.1) mmol/L Chloride (98-107) mmol/L Carbon Dioxide (21.0-32.0) mmol/L Anion Gap (5-15) BUN (7-18) mg/dL Creatinine (0.55-1.02) mg/dL Estim Creat Clear Calc ml/min Est GFR (MDRD) Af Amer (>60) mL/min Est GFR (MDRD) Non-Af (>60) mL/min BUN/Creatinine Ratio (10-20) RATIO Glucose (74-106) mg/dL Hemoglobin A1c (4.2-6.3) % Calcium (8.5-10.1) mg/dL Phosphorus (2.5-4.9) mg/dL Magnesium (1.6-2.6) mg/dL Total Bilirubin (0.20-1.00) mg/dL AST (15-37) U/L ALT (13-56) U/L Alkaline Phosphatase (45-117) U/L Total Protein (6.4-8.2) g/dL Albumin (3.2-5.0) g/dL Globulin (2.2-4.2) g/dL Albumin/Globulin Ratio (0.9-2.4) RATIO Vitamin D 25-Hydroxy ng/mL Urine Color (Yellow) Urine Clarity (Clear) Urine pH (5.0 - 8.0) Ur Specific [place] (1.002-1.030) Urine Protein (Negative) mg/dl Urine Glucose (UA) (Normal) mg/dl Urine Ketones (Negative) mg/dl Urine Occult Blood (Negative) /ul Urine Nitrite (Negative) Urine Bilirubin (Negative) mg/dL Urine Urobilinogen (Normal) mg/dl Ur Leukocyte Esterase (Negative) /ul Urine RBC (0-5) /hpf Urine WBC (0-5) /hpf Ur Squamous Epith Cells (5-10) /hpf Urine Bacteria (None Seen) /hpf Urine Mucus (<or=2+) /hpf POC Glucose 293 H 235 H (70-110) mg/dL 01/17/20 Range/Units 12:10 WBC (4.4-11.0) K/mm3 RBC (4.2-5.4) M/mm3 Hgb (12.0-15.0) g/dL Hct (37-47) % MCV (81-99) fL MCH (27.0-32.0) pg MCHC (32-36) g/dL RDW Std Deviation (35.1-43.9) fl RDW Coeff of Hernan (11.6-14.6) % Plt Count (150-450) K/mm3 MPV (6.2-12.0) fl Immature Gran % (Auto) (0.0-0.9) % Neut % (Auto) (47-70) % Lymph % (Auto) (19-41) % Nicholas % (Auto) (0-10) % Eos % (Auto) (0-5) % Baso % (Auto) (0-1) % Absolute Neuts (auto) (2.0-7.7) X10^3/uL Absolute Lymphs (auto) (0.83-4.51) X10^3/uL Nucleated RBC % (0-5) % Sodium (136-145) mmol/L Potassium (3.5-5.1) mmol/L Chloride (98-107) mmol/L Carbon Dioxide (21.0-32.0) mmol/L Anion Gap (5-15) BUN (7-18) mg/dL Creatinine (0.55-1.02) mg/dL Estim Creat Clear Calc ml/min Est GFR (MDRD) Af Amer (>60) mL/min Est GFR (MDRD) Non-Af (>60) mL/min BUN/Creatinine Ratio (10-20) RATIO Glucose (74-106) mg/dL Hemoglobin A1c (4.2-6.3) % Calcium (8.5-10.1) mg/dL Phosphorus (2.5-4.9) mg/dL Magnesium (1.6-2.6) mg/dL Total Bilirubin (0.20-1.00) mg/dL AST (15-37) U/L ALT (13-56) U/L Alkaline Phosphatase (45-117) U/L Total Protein (6.4-8.2) g/dL Albumin (3.2-5.0) g/dL Globulin (2.2-4.2) g/dL Albumin/Globulin Ratio (0.9-2.4) RATIO Vitamin D 25-Hydroxy ng/mL Urine Color (Yellow) Urine Clarity (Clear) Urine pH (5.0 - 8.0) Ur Specific [place] (1.002-1.030) Urine Protein (Negative) mg/dl Urine Glucose (UA) (Normal) mg/dl Urine Ketones (Negative) mg/dl Urine Occult Blood (Negative) /ul Urine Nitrite (Negative) Urine Bilirubin (Negative) mg/dL Urine Urobilinogen (Normal) mg/dl Ur Leukocyte Esterase (Negative) /ul Urine RBC (0-5) /hpf Urine WBC (0-5) /hpf Ur Squamous Epith Cells (5-10) /hpf Urine Bacteria (None Seen) /hpf Urine Mucus (<or=2+) /hpf POC Glucose 221 H (70-110) mg/dL Microbiology 01/21/20 12:11 Urine, Clean Catch Urine Culture - Final Mixed Gram Pos & Gram Neg Org Consultations 01/17/20 Consult: Onc/Wound/transportation escort Routine Comment: Reason for Consult:: stage II buttocks 01/28/20 - Dr. Rissa Alfonso - Nephrology Operations: None Procedures: None Summary of Care Provided: The patient is a 84 year old F with a past medical history of hypertension, hyperlipidemia, diabetes mellitus type 2, gout, multivessel coronary artery disease, CABG x4 on 01/09/2020 at [facility], atrial fibrillation with rapid ventricular response post CABG (resolved), diverticulosis, internal hemorrhoids, right carotid stenosis, intracranial meningioma of ventromedial foramen magnum, ischemic cardiomyopathy with a 30% EF, mild left atrial enlargement, chronic renal failure stage III, stage II decubitus ulcer on the right buttock, renal cysts, STEMI the last week of December 2019, moderate MR and acute blood loss anemia post CABG who is admitted to the IPRU at [facility] on 01/17/2020 with debility due to recent CABG for > 3 hours of therapy daily to restore her at or near her prior level of function. Prior to STEMI and subsequent CABG she was walking without an AD and was independent with ADL's and driving. She was admitted to [facility] on 01/03/20 for ACS....due to recent STEMI ( was not seen at the time of the STEMI...she did not present to the ED until after and CE's were on the way down. She had Q waves in the inferior leads and still had ST elevation in the inferior leads. She had an emergent cardiac catheterization done by Dr. Farr and this showed: LEFT HEART ASSESSMENT Left Ventricular Ejection Fraction: Not assessed LEFT MAIN: 30 % Stenosis LEFT ANTERIOR DESCENDING ARTERY: OSTIAL LAD: 80 % Stenosis MID LAD: 60-70 % Stenosis CIRCUMFLEX ARTERY: OSTIAL CIRC: 70 % Stenosis MID CIRC: 80 % Stenosis RIGHT CORONARY ARTERY: PROX RCA: 80 % Stenosis DISTAL RCA: 80-90 % Stenosis RT PLV: 80-90 % Stenosis Post cath she went to the ICU and on 01/04/20 she was transferred to [facility] to be considered for CABG. The CABG could not be done immediately because she had been loaded with Brilinta prior to Cardiac Cath at [facility]. She had CABG X 4 vessels on 01/09/[address] Oritz. Post-op complications included acute on CRF, AF with RVR, acute systolic CHF, thrombocytopenia and acute blood loss anemia. Thrombocytopenia had resolved prior to admission to the rehab unit and her hemoglobin was stable. She was in NSR at presentation to rehab and CHF had resolved. She had a stage 2 decubitus ulcer on the right buttock at the time of admission to the rehab unit and she was treated with a Mepilex dressing (changed every 3 days) and Calmoseptine which was applied to the perianal area regularly. The decubitus ulcer completely healed during her stay in the rehab unit. She will continue the Calmoseptine after discharge. She complained of dysuria shortly after admission and a UA showed 5-10 WBCs per high-power field and rare bacteria. She was started on ciprofloxacin 250 mg p.o. twice daily and a urine culture was sent. Unfortunately the urine was obtained by a clean- catch and grew mixed gram-negative's and positives. The dysuria resolved completely with Cipro. She also complained of insomnia and was fatigued during the day. She was started on Trazodone 50 mg at HS and she was sleeping well prior to DC. She was given a RX for Trazodone at discharge. She c/o R calf pain at admission. The SVG was taken from the RLE and it was swollen > the left ankle. A venous US was obtained and it was negative for DVT. The RADHA hose were removed from the RLE and replaced with an ISABELLA wrap. The pain in the R calf resolved and she had only a trace of R ankle edema and no L ankle edema at DC. She will continue to wear a compression stocking on the RLE or an ISABELLA post discharge. BP was not adequately controlled at admission to rehab and Lisinopril 2.5 mg was added to her drug regimen with good control of the BP however, the creat started to climb and Lasix, Lisinopril and Cipro were discontinued (she had a full 7 days of Cipro and dysuria resolved). Creat at admission to the rehab unit was 1.58 and at PR was 1.95. She was seen in consult by Dr. Rissa Alfonso from nephrology on 01/28/20 who agreed with the discontinuation of the Lasix and Lisinopril. An IV of NS was started. She was instructed at PR to maintain good oral intake. Maritza will follow up with Dr. Alfonso post DC. [facility] will draw a renal profile on Sunday and the results will be sent to Dr. Alfonso. Creat at PR was 1.95 with a BUN of 29 and a BUN/creatinine ratio of 14.9. She is nonoliguric and the urine output for 01/28/2020 was 1575. She had 1700 cc urine on the day of DC prior to noon. HGBA1C was high at 7.7. The insulin regimen was adjusted to get the blood sugars under better control and prior to DC all BS's were less than 200 for the preceding 5 days. She had 1 BS of 66 but, she did not eat much lunch on that day. She did very well in therapy and prior to DC she ambulated 100 ft with no assistive device. She was discharged home on 01/29/20 with home health. She will follow up with Dr. Warren in 1 week....hopefully for a phone visit. She has a phone appt with cardiothoracic surgery on Sunday02/02/20. She will continue to wear the vest until she speaks to the surgeon. Alert and oriented x3, no apparent distress, sitting in the recliner at the bedside Mucous membranes mildly dry, no mucosal lesions Lungs-clear to auscultation Heart-regular rate and rhythm, no gallop, no rub Abdomen-soft, nontender, nondistended, bowel sounds heard in all 4 quadrants, no guarding with palpation Very mild edema of the right ankle which will likely always be present due to the fact that the SVG was harvested from the right leg. There is no edema in the left ankle. The incision is healing well and is intact with no periwound erythema and no discharge from the site. No rashes, no breakdown The stage II decubitus ulcer of the right buttocks is completely healed with a small area of yellow hyperkeratotic tissue at the site of the previous ulcer This note was generated with [employer] dictation software. It may contain incorrect words, spelling, and punctuation that were not noted in checking the note before signing. Patient Problems: Active and Suspected Problems (Last Reviewed 01/17/20 @ 14:[address] Tonja Marshall DO) Acute blood loss anemia (Acute) after CABG Acute renal failure superimposed on stage 3 chronic kidney disease (Acute) due to ATN post-op. Had intraoperative hypotension - Physical Exam Vitals/I&O's: Vital Signs Temp Pulse Resp BP Pulse Ox 98 F 67 16 128/62 H 93 01/27/20 07:00 01/27/20 08:00 01/27/20 07:00 01/27/20 08:00 01/27/20 07:00 Oxygen Delivery Method Room Air Weight: 166 lb 14.239 oz Body Mass Index (BMI) 32.1 Finger Stick Blood Glucose 220 Intake and Output for Last 24 Hours 01/25/20 01/26/20 01/27/20 23:59 23:59 23:59 Intake Total 1840 / 1840 1400 / 1400 630 / 630 Output Total 2150 / 2150 1550 / 1550 850 / 850 Balance -310 / -310 -150 / -150 -220 / -220 Laboratory Results 01/26/20 17:07: POC Glucose 104 01/26/20 20:57: POC Glucose 168 H 01/27/20 06:05: POC Glucose 115 H 01/27/20 11:16: POC Glucose 118 H Current Medications Acetaminophen (Tylenol) 1,000 mg PO QHS [facility] Last Admin: 01/26/20 21:43 Dose: 1,000 mg Documented by: Acetaminophen (Tylenol) 1,000 mg PO Q8H PRN PRN PRN Reason: Pain Score 1-10/10 Albuterol Sulfate (Ventolin Aerosols) 2.5 mg INHALATION Q4H PRN PRN PRN Reason: SOB &/OR WHEEZING [facility]) [facility] Last Admin: 01/27/20 08:00 Dose: 100 mg Documented by: Amiodarone HCl (Cordarone) 200 mg PO DAILY [facility] Stop: 01/31/20 10:01 Last Admin: 01/27/20 08:00 Dose: 200 mg Documented by: Amlodipine Besylate (Norvasc) 5 mg PO QHS [facility] Last Admin: 01/26/20 21:43 Dose: 5 mg Documented by: Aspirin (Aspirin, Baby) 81 [facility] Last Admin: 01/27/20 08:00 Dose: 81 mg Documented by: Atorvastatin Calcium (Lipitor) 40 mg PO QHS [facility] Last Admin: 01/26/20 21:43 Dose: 40 mg Documented by: Bisacodyl (Dulcolax) 10 mg RECTAL .PRN X 1 PRN PRN Reason: Constipation Calamine/Phenol (Calmoseptine Ointment) 1 applic TOPICAL TID PRN; Protocol PRN Reason: RASH/TOPICAL IRRITATION Last Admin: 01/17/20 15:14 Dose: 1 appful Documented by: Calcium Carbonate (Tums) 500 mg PO DAILY [facility] Last Admin: 01/27/20 07:59 Dose: 500 mg Documented by: Ciprofloxacin HCl (Cipro) 250 mg PO BID [facility] Stop: 02/01/20 10:18 Last Admin: 01/27/20 08:00 Dose: 250 mg Documented by: Clopidogrel Bisulfate (Plavix) 75 mg PO DAILY [facility] Last Admin: 01/27/20 07:59 Dose: 75 mg Documented by: Guaifenesin (Mucinex) 600 mg PO BID PRN PRN Reason: COUGH Heparin Sodium (Porcine) (Heparin Na) 5,000 unit SC Q12 [facility] Last Admin: 01/27/20 08:03 Dose: Not Given Documented by: Insulin Glargine (Lantus (Bkc)) 18 units SC DAILY [facility] Last Admin: 01/27/20 08:01 Dose: 18 u Documented by: Insulin Human Lispro (Humalog Kwikpen (Bkc)) 0 unit SC TIDAC [facility]; Protocol Last Admin: 01/27/20 11:40 Dose: Not Given Documented by: Insulin Human Lispro (Humalog Kwikpen (Bkc)) 10 unit SC DAILY@1700 [facility] Last Admin: 01/26/20 17:08 Dose: 10 u Documented by: Insulin Human Lispro (Humalog Kwikpen (Bk)) 12 unit SC DAILY@0730 [facility] Last Admin: 01/27/20 08:01 Dose: 12 u Documented by: Insulin Human Lispro (Humalog Kwikpen ([facility])) 8 unit SC DAILY@1200 [facility] Last Admin: 01/27/20 12:13 Dose: 8 u Documented by: Lidocaine (Lidoderm Patch) 1 patch TOPICAL DAILY [facility]; Protocol Last Admin: 01/27/20 08:03 Dose: Not Given Documented by: Lisinopril (Zestril) 2.5 mg PO DAILY [facility] Last Admin: 01/27/20 07:59 Dose: 2.5 mg Documented by: Magnesium Hydroxide (Milk Of Magnesia) 30 ml PO .PRN X 1 PRN PRN Reason: Constipation Magnesium Oxide (Mag-Ox 400) 400 mg PO DAILY [facility] Last Admin: 01/27/20 08:00 Dose: 400 mg Documented by: Metoprolol Succinate (Toprol Xl (Beta Lisy)) 100 mg PO DAILY [facility] Last Admin: 01/27/20 08:00 Dose: 100 mg Documented by: Multi-Ingredient Cream (Lacrilube) 1 applic OPHTHALMIC QHS [facility] Last Admin: 01/26/20 21:44 Dose: 1 applicatio Documented by: Nutritional Formula (Luke - [place] Flavor) 1 packet PO BIDCM [facility] Last Admin: 01/27/20 08:02 Dose: Not Given Documented by: Ondansetron HCl (Zofran Odt) 4 mg PO Q6H PRN PRN PRN Reason: NAUSEA/VOMITING Polyethylene Glycol (Miralax) 17 gm PO DAILY PRN PRN Reason: Constipation Senna (Senokot) 2 tablet PO DAILY [facility] Last Admin: 01/27/20 08:03 Dose: Not Given Documented by: Tramadol HCl (Ultram) 50 mg PO Q6H PRN PRN Reason: Pain Score 1-10/10 Trazodone HCl (Desyrel) 50 mg PO QHS [facility] Last Admin: 01/26/20 21:43 Dose: 50 mg Documented by: Discharge Activity: May Not Drive - until relaeased by the cardiothoracic surgeon to drive, May Shower, Use Walker - as needed if you are feeling weak or dizzy Call your doctor if your incision/area has: Continuous Slow Oozing, Sudden Increased Bleeding, Increased Pain/ Swelling, Increased Redness, Foul Smelling Discharge, Swelling at the incision site Call your doctor if you observe: Fever of 101 or Higher, Inability to urinate, Inability to have a bowel movement, Shortness of breath, Dizziness, Fainting spells, Swelling in the ankles, Chest pain, Increased palpitations (irregular heartbeat), Calf discomfort, Uncontrolled pain, - - Call your PCP if severe diarrhea ( > 5 stools a day), painful sores in the mouth, painful swallowing, rash or itching. Taking a probiotic such as Lactobacillus or Kefir can help with loose stools while taking antibiotics. Home Medications: Medications to take at Discharge Allopurinol [Zyloprim] 100 mg PO DAILYCM 04/28/14 [place]-3 Fatty Acids/Fish Oil [[place] 3 1,000 mg Softgel] 1 ea PO DAILY 01/03/20 Albuterol Aerosols [Ventolin Aerosols] 2.5 mg INHALATION Q4H PRN PRN 01/17/20 Amiodarone HCl [Cordarone] 200 mg PO DAILY 01/17/20 Aspirin 81 mg PO DAILY 01/17/20 Atorvastatin Calcium [Lipitor] 40 mg PO QHS 01/17/20 Calcium Carbonate/Vitamin D3 [Calcium 600 + Vit D Tablet] 1 ea PO DAILY 01/17/20 Clopidogrel Bisulfate [Plavix] 75 mg PO DAILY 01/17/20 CycloSPORINE Ophthalmic [Restasis Ophthalmic] 1 drp EACH EYE BID 01/17/20 Guaifenesin [Mucinex] 600 mg PO BID PRN 01/17/20 Insulin Aspart [Novolog Flexpen] 8 units SUBCUT DAILY@1700 01/17/20 Magnesium Oxide [Mag-Ox 400] 400 mg PO DAILY 01/17/20 Metoprolol Succinate [Toprol Xl] 100 mg PO DAILY 01/17/20 Mineral Oil/Petrolatum,White [Systane Nighttime Eye Ointment] 1 applicatio TOPICAL QHS 01/17/20 Polyethylene Glycol 3350 [Miralax] 17 gm PO DAILY PRN 01/17/20 Sennosides [Senna] 2 tab PO DAILY 01/17/20 Tramadol HCl [Ultram] 50 mg PO Q6H PRN 01/17/20 Acetaminophen [Tylenol] 1,000 mg PO QHS tab 01/27/20 Acetaminophen [Tylenol] 650 mg PO Q8H PRN PRN tab 01/27/20 Insulin Glargine [Lantus SoloStar Pen] 18 units SUBCUT DAILY pen 01/27/20 Insulin Lispro [Humalog KwikPen] 10 unit SUBCUT DAILY@1700 insuln.pen 01/27/20 Insulin Lispro [Humalog KwikPen] 12 unit SUBCUT DAILY@0730 insuln.pen 01/27/20 Prochlorperazine Maleate 5 mg PO Q6H PRN PRN #10 tab 01/27/20 traZODone [Desyrel] 50 mg PO QHS #30 tab 01/27/20 Insulin Lispro [Humalog KwikPen] 6 unit SUBCUT DAILY@1200 insuln.pen 01/29/20 Following Prescrptions Were Given to Patient: traZODone [Desyrel] 50 mg PO QHS #30 tab Transmission Status: Received by [facility] Prochlorperazine Maleate 5 mg PO Q6H PRN PRN #10 tab PRN Reason: Nausea Transmission Status: Received by [facility] Other Amb Orders: Renal Profile Time Frame: 02/02/20, Facility: [facility], Location: Laboratory Primary Care Physician: Siena Warren MD [Primary Care Provider] - Please follow up with your Primary Care Physician in: please set up a phoe appt within the next 7-10 days Please Follow Up With: cadiology Disposition: Home with Home Health Minutes spent on discharge:: 45 Patient Condition:: Good Medical Necessity - Tobacco Use Smoking Status: Never smoker Tobacco Use: Non-smoker Meaningful Use Info Meaningful Use Diagnoses (Choose all that apply): None applicable Inpatient E&M: 21298 Disch Hosp
[2020-01-27 17:25] LABS: Urine Sodium 64 mmol/L (Not Establ.)
[2020-01-27 17:26] LABS: Bedside Glucose 80 mg/dL (70-110)
[2020-01-27 18:11] LABS: Bedside Glucose 128 mg/dL (70-110)
[2020-01-27 21:27] VITALS: BP 129/70; PULSE 73; RESP 16; TEMP 36.9; O2SAT 96
[2020-01-27] MEDS: Acetaminophen 500 MG Tablet 1000 MG PO (21:29)
[2020-01-27] MEDS: Petrolatum,White 3.75GM OPTH.TUBE 1 APPLIC OPHTHALMIC (21:29)
[2020-01-27] MEDS: Atorvastatin Calcium 40 MG Tablet PO (21:29)
[2020-01-27] MEDS: amLODIPine 5 MG Tablet PO (21:29)
[2020-01-27] MEDS: traZODone 50 MG Tablet PO (21:29)
[2020-01-27 21:56] LABS: Bedside Glucose 146 mg/dL (70-110)
[2020-01-28 05:27] LABS: Absolute Lymphocyte Count 2.92 X10^3/uL (0.83-4.51); Absolute Neutrophil Count 2.8 X10^3/uL (2.0-7.7); Basophil# 0.07 X10^3/uL; Basophil% 1.1 % (0-1); Eosinophil# 0.11 X10^3/uL; Eosinophils% 1.7 % (0-5); Hematocrit 33.3 % (37-47); Hemoglobin 10.5 g/dL (12.0-15.0); Lymphocyte # 2.92 X10^3/ul (4.0); Mean Corp Hgb Conc 31.5 g/dL (32-36); Mean Corpuscular Hgb 29.8 pg (27.0-32.0); Mean Corpuscular Volume 94.6 fL (81-99); Mean Platelet Vol. 10.3 fl (6.2-12.0); Monocyte# 0.77 X10^3/uL; Monocyte% 11.6 % (0-10); NRBC Flagged by Analyzer 0 % (0-5); Neutrophil # 2.75 X10^3/uL (2.7-7.7); Neutrophil % 41.4 % (47-70); Platelet Count 426 K/mm3 (150-450); RBC Distribution Width CV 15.7 % (11.6-14.6); Red Blood Count 3.52 M/mm3 (4.2-5.4); White Blood Count 6.6 K/mm3 (4.4-11.0)
[2020-01-28 05:41] LABS: Anion Gap 8 (5-15); BUN 32 mg/dL (7-18); BUN/Creat Ratio 16.8 RATIO (10-20); Calcium,Total 8.5 mg/dL (8.5-10.1); Chloride 106 mmol/L (98-107); EST Glomerular Filtration Rate 27 mL/min (>60); Est Glom Filt Rate - Afr Amer 33 mL/min (>60); Estimated Creatinine Clearance 18.06 ml/min; Glucose 117 mg/dL (74-106); Phosphorus 3.3 mg/dL (2.5-4.9); Potassium 3.6 mmol/L (3.5-5.1); Sodium Level 141 mmol/L (136-145)
[2020-01-28 06:51] LABS: Bedside Glucose 133 mg/dL (70-110)
[2020-01-28 08:07] VITALS: BP 126/60; PULSE 72
[2020-01-28] MEDS: Magnesium Oxide 400 MG Tablet PO (08:07)
[2020-01-28] MEDS: Glycerin/Hypromellose/PEG400 15 ml Bottle 1 DRP OPHTHALMIC ×2 (08:07→21:26)
[2020-01-28] MEDS: Clopidogrel Bisulfate 75 MG Tablet PO (08:07)
[2020-01-28] MEDS: Metoprolol(XL)Succ 100 MG Tablet PO (08:07)
[2020-01-28] MEDS: Aspirin 81 MG TAB.CHEW PO (08:08)
[2020-01-28] MEDS: Ciprofloxacin 250 MG Tablet PO (08:08)
[2020-01-28] MEDS: Lisinopril 2.5 MG Tablet PO (08:08)
[2020-01-28] MEDS: Allopurinol 100 MG Tablet PO (08:08)
[2020-01-28] MEDS: Calcium Carbonate 500 MG Tablet PO (08:08)
[2020-01-28] MEDS: Amiodarone 200 MG Tablet PO (08:08)
[2020-01-28] MEDS: Insulin Lispro 100 UNIT/ML INSULN.PEN 12 UNIT SC (08:09)
--- NOTE | 2020-01-28 08:38 | PCM.PN.BLA ---
Progress Note Afebile VSS Maintaining appropriate oxygen saturation on RA Oral intake is good. Oral intake was 1490 yesterday. Fortunately she had 1750 out. Lasix was held yesterday. Weight is down to 165 pounds from 171 pounds on 01/23/2020. Discussed with nursing - no problems that need addressed Reviewed the PT/OT notes Medication list reviewed. All lab was personally reviewed. Creatinine is up to 1.9 today. Potassium is 3.6. Calcium and phosphorus are within normal limits. Urine sodium was 64 yesterday and the urine urea was not done. Will reorder. ALert. appropriate Lungs - CTA after a few deep breaths. MM are dry. Abdomen-soft, nontender, nondistended, no nausea, no guarding with palpation, bowel sounds present Trace ankle edema on the right with resolving ecchymosis, no edema at the left ankle. Stage II decubitus ulcer of the right buttock has completely healed and there is just a small hyperkeratotic area there. Impressions 1. Acute on chronic renal failure stage III with recent history of ATN secondary to hypotension following CABG -suspect secondary to intravascular volume depletion. Hold discharge for today Gently hydrate Consult Dr. Rissa Alfonso to participate in management and patient will follow up with her post discharge Discontinue lisinopril Potassium chloride 20 mEq today to keep the potassium around 4 in light of recent CABG and A. fib with RVR Urine urea nitrogen did not get done yesterday. Will order today. The spot urine sodium was 64 but the patient had received Lasix. STROKE Vital Signs/Narrative: Vital Signs Pulse BP 01/28/20 08:07 72 126/60 H Inpatient E&M: [id number] Subs Hosp L2
[2020-01-28] MEDS: 0.9% Normal Saline 1,000 ML 60 ML IV (09:53)
[2020-01-28 10:00] VITALS: BP 126/60; PULSE 72; RESP 18; TEMP 36.6; O2SAT 96
[2020-01-28 10:42] LABS: Albumin, Serum 2.8 g/dL (3.2-5.0)
--- NOTE | 2020-01-28 10:55 | CASEMGMT ---
Social Work Patient receiving IV fluids and poor labs. DC postponed until 01/28. Pt aware and agreeable. Notified [facility]. Fidelina Clifford, [employer] TECHNICIAN
--- NOTE | 2020-01-28 11:02 | PCM.CONS.R ---
Consultation - Renal 01/28/20 PCP/ Referring MD: Requesting physician: [] Primary care physician: Siena Warren MD Reason for Consultation:: SHA - History of Present Illness History of Present Illness: The patient is a 84 year old F admitted to for rehab on 01/17/20 following hospitalization for ACS s/p STEMI with emergent heart cath on 01/03/20 in [facility], s/p CABG on 01/09/20 at [facility]. She has ischemic cardiomyopathy with EF 30%, HTN, DM2, HPL, carotid disease. Denies lightheadedness, chest pain, shortness of breath or leg edema. No history of NSAID use. Urine output has been good with frequency, no dysuria but is on cipro 01/21- for possible UTI. Appetite has not been good since her CABG. Has occasional diarrhea from drinking propel. She has known CKD stage 3 presumed from diabetes, hypertensive nephrosclerosis. Seen by [facility] years ago for one visit and never went back. Baseline creatinine 1.5 on and 1.58 on 01/17. Creatinine increased to 1.9 today. Lasix discontinued on 01/26 and lisinopril discontinued today. No recent iv contrast exposure. No hypotensive event. Urine sodium 64 on on 01/26 while on lasix. - Allergies Allergies: Allergies codeine Adverse Reaction (Verified 01/03/20 11:06) Nausea/Vom/Diarrhea - Current Medications Current Medications: Current Medications Acetaminophen (Tylenol) 1,000 mg PO QHS [facility] Last Admin: 01/27/20 21:29 Dose: 1,000 mg Documented by: Acetaminophen (Tylenol) 1,000 mg PO Q8H PRN PRN PRN Reason: Pain Score 1-10/10 Albuterol Sulfate (Ventolin Aerosols) 2.5 mg INHALATION Q4H PRN PRN PRN Reason: SOB &/OR WHEEZING [facility] ([facility]) [facility] Last Admin: 01/28/20 08:08 Dose: 100 mg Documented by: Amiodarone HCl (Cordarone) 200 mg PO DAILY [facility] Stop: 01/31/20 10:01 Last Admin: 01/28/20 08:08 Dose: 200 mg Documented by: Amlodipine Besylate (Norvasc) 5 mg PO QHS [facility] Last Admin: 01/27/20 21:29 Dose: 5 mg Documented by: Aspirin (Aspirin, Baby) 81 mg PO DAILYCM [facility] Last Admin: 01/28/20 08:08 Dose: 81 mg Documented by: Atorvastatin Calcium (Lipitor) 40 mg PO QHS [facility] Last Admin: 01/27/20 21:29 Dose: 40 mg Documented by: Bisacodyl (Dulcolax) 10 mg RECTAL .PRN X 1 PRN PRN Reason: Constipation Calamine/Phenol (Calmoseptine Ointment) 1 applic TOPICAL TID PRN; Protocol PRN Reason: RASH/TOPICAL IRRITATION Last Admin: 01/17/20 15:14 Dose: 1 appful Documented by: Calcium Carbonate (Tums) 500 mg PO DAILY [facility] Last Admin: 01/28/20 08:08 Dose: 500 mg Documented by: Clopidogrel Bisulfate (Plavix) 75 mg PO DAILY [facility] Last Admin: 01/28/20 08:07 Dose: 75 mg Documented by: Guaifenesin (Mucinex) 600 mg PO BID PRN PRN Reason: COUGH Heparin Sodium (Porcine) (Heparin Na) 5,000 unit SC Q12 [facility] Last Admin: 01/28/20 08:08 Dose: Not Given Documented by: Sodium Chloride () 1,000 mls @ 60 mls/hr IV .[id number] [facility] Stop: 01/29/20 09:39 Last Admin: 01/28/20 09:53 Dose: 60 mls/hr Documented by: Insulin Glargine (Lantus (Bkc)) 18 units SC DAILY [facility] Last Admin: 01/28/20 08:09 Dose: 18 u Documented by: Insulin Human Lispro (Humalog Kwikpen (Bkc)) 0 unit SC TIDAC [facility]; Protocol Last Admin: 01/28/20 08:03 Dose: Not Given Documented by: Insulin Human Lispro (Humalog Kwikpen (Bkc)) 10 unit SC DAILY@1700 [facility] Last Admin: 01/27/20 18:08 Dose: Not Given Documented by: Insulin Human Lispro (Humalog Kwikpen (Bkc)) 12 unit SC DAILY@0730 [facility] Last Admin: 01/28/20 08:09 Dose: 12 u Documented by: Insulin Human Lispro (Humalog Kwikpen (Bkc)) 6 unit SC DAILY@1200 [facility] Lidocaine (Lidoderm Patch) 1 patch TOPICAL DAILY [facility]; Protocol Last Admin: 01/28/20 08:10 Dose: Not Given Documented by: Magnesium Hydroxide (Milk Of Magnesia) 30 ml PO .PRN X 1 PRN PRN Reason: Constipation Magnesium Oxide (Mag-Ox 400) 400 mg PO DAILY [facility] Last Admin: 01/28/20 08:07 Dose: 400 mg Documented by: Metoprolol Succinate (Toprol Xl (Beta Lisy)) 100 mg PO DAILY [facility] Last Admin: 01/28/20 08:07 Dose: 100 mg Documented by: Multi-Ingredient Cream (Lacrilube) 1 applic OPHTHALMIC QHS [facility] Last Admin: 01/27/20 21:29 Dose: 1 applicatio Documented by: Nutritional Formula (Luke - Knott Flavor) 1 packet PO BIDCM [facility] Last Admin: 01/28/20 08:08 Dose: Not Given Documented by: Ondansetron HCl (Zofran Odt) 4 mg PO Q6H PRN PRN PRN Reason: NAUSEA/VOMITING Polyethylene Glycol (Miralax) 17 gm PO DAILY PRN PRN Reason: Constipation Senna (Senokot) 2 tablet PO DAILY [facility] Last Admin: 01/28/20 08:10 Dose: Not Given Documented by: Sodium Chloride () 10 - 40 ml IV UD PRN PRN Reason: SALINE FLUSH Tramadol HCl (Ultram) 50 mg PO Q6H PRN PRN Reason: Pain Score 1-10/10 Trazodone HCl (Desyrel) 50 mg PO QHS [facility] Last Admin: 01/27/20 21:29 Dose: 50 mg Documented by: - Past Medical History Past Medical History (Chronic Problems): Chronic Problems (Last Reviewed 01/17/20 @ 14:[address] Tonja Marshall, DO) Ischemic cardiomyopathy (Chronic) 30% EF S/P CABG x 4 (Chronic) 01/09/20 at [facility] by Dr. Ortiz Diverticulosis (Chronic) Internal hemorrhoids (Chronic) H/O angioplasty (Chronic) 1988 Nonrheumatic mitral valve regurgitation (Chronic) Moderate Mild atrial enlargement, left (Chronic) Benign paroxysmal positional vertigo (Chronic) Chronic renal failure, stage 3 (moderate) (Chronic) Carotid stenosis, right (Chronic) 40 to 59% STEMI (ST elevation myocardial infarction) (Chronic) increased enzymes 01/03/20 - late presentation of STEMI with ACS/ongoing pain Bilateral renal cysts (Chronic) History of left heart catheterization (Chronic) 01/03/[address] Noel at [facility] Gout (Chronic) Basal ganglia infarction (Chronic) 2014 Intracranial meningioma (Chronic) And incidental finding on 10/19/2008 of ventromedial foramen magnum meningioma measuring 1.2 cm with no surrounding neural compression HLD (hyperlipidemia) (Chronic) Type II diabetes mellitus (Chronic) also with CAD and hx of carotid stenosis and CVA Benign hypertension (Chronic) - Past Surgical History Surgical History: cataract, cholecystectomy, coronary bypass surgery, - - Past history of coronary artery angioplasty, surgery for tubal - Social History Smoking Status: Never smoker Alcohol: None Drugs: None - Family History Sibling History Items: Cancer - Cancer of the mouth and her brother who was a non-smoker Paternal History Items: Heart Disease Maternal History Items: Diabetes - And a maternal uncle, Heart Disease Review of Systems Constitutional: Reports: Anorexia, Weakness. Denies: Chills, Fever Eyes: Denies: Vision Change HEENT: Denies: Head Aches Cardiovascular: Denies: Chest Pain Respiratory: Denies: Cough, Shortness of breath at rest Gastrointestinal: Reports: Diarrhea - occasional from propel drinks. Denies: Abdominal Pain, Nausea, Vomiting Genitourinary: Reports: Frequency, - - good UOP. Denies: Dysuria, Hematuria, Retention Musculoskeletal: Reports: - - mild RLE swelling from surgery, gen weakness s/p CABG Skin: Denies: Pruritis, Rash Neurological: Denies: Blurred vision, Tremor, Seizures Psychiatric: Denies: Anxiety, Depression Hematologic/ Lymphatic: Reports: Anemia. Denies: Hx of blood clot Patient Problems: Active and Suspected Problems (Last Reviewed 01/17/20 @ 14:[address] Tonja Marshall, DO) Acute blood loss anemia (Acute) after CABG Acute renal failure superimposed on stage 3 chronic kidney disease (Acute) due to ATN post-op. Had intraoperative hypotension - Physical Exam Vitals/I&O's: Vital Signs Temp Pulse Resp BP Pulse Ox 98.4 F 72 16 126/60 H 96 01/27/20 21:27 01/28/20 08:07 01/27/20 21:27 01/28/20 08:07 01/27/20 21:27 Oxygen Delivery Method Room Air Weight: 74.9 kg Body Mass Index (BMI) 32.1 Finger Stick Blood Glucose 220 Intake and Output for Last 24 Hours 01/26/20 01/27/20 01/28/20 23:59 23:59 23:59 Intake Total 1400 / 1400 1490 / 1490 60 / 60 Output Total 1550 / 1550 1750 / 1750 975 / 975 Balance -150 / -150 -260 / -260 -915 / -915 General: Alert, Oriented x3, Cooperative, No apparent distress HEENT: PERRLA, EOMI Oral: Dry Mucosa Neck: Supple Lungs: Clear to auscultation Cardiovascular: Regular rate, No murmurs, No rub noted Abdomen: Bowel Sounds Present, Soft, Non Tender, Non-Distended Extremities: No edema, - - veins harvested in RLE Musculoskeletal: No Muscle Wasting Neurological: Cranial nerves II-XII grossly intact Psych/Mental Status: Normal Affect, Appropriate, Alert and oriented to time, place, person, mood and affect Laboratory Results 01/27/20 11:16: POC Glucose 118 H 01/27/20 16:30: Ur Random Sodium 64 01/27/20 17:00: POC Glucose 80 01/27/20 18:07: POC Glucose 128 H 01/27/20 21:44: POC Glucose 146 H 01/28/20 05:05: WBC 6.6, RBC 3.52 L, Hgb 10.5 L, Hct 33.3 L, MCV 94.6, MCH 29.8, MCHC 31.5 L, RDW Std Deviation 54.0 H, RDW Coeff of Hernan 15.7 H, Plt Count 426, MPV 10.3, Immature Gran % (Auto) 0.200, Neut % (Auto) 41.4 L, Lymph % (Auto) 44.0 H, Mineral % (Auto) 11.6 H, Eos % (Auto) 1.7, Baso % (Auto) 1.1 H, Absolute Neuts (auto) 2.8, Absolute Lymphs (auto) 2.92, Nucleated RBC % 0 01/28/20 05:05: Sodium 141, Potassium 3.6, Chloride 106, Carbon Dioxide 27.0, Anion Gap 8, BUN 32 H, Creatinine 1.90 H, Estim Creat Clear Calc 18.06, Est GFR (MDRD) Af Amer 33 L, Est GFR (MDRD) Non-Af 27 L, BUN/Creatinine Ratio 16.8, Glucose 117 H, Calcium 8.5, Phosphorus 3.3 01/28/20 05:05: Albumin 2.8 L 01/28/20 06:41: POC Glucose 133 H Current Medications Acetaminophen (Tylenol) 1,000 mg PO QHS [facility] Last Admin: 01/27/20 21:29 Dose: 1,000 mg Documented by: Acetaminophen (Tylenol) 1,000 mg PO Q8H PRN PRN PRN Reason: Pain Score 1-10/10 Albuterol Sulfate (Ventolin Aerosols) 2.5 mg INHALATION Q4H PRN PRN PRN Reason: SOB &/OR WHEEZING Allop[facility] ([facility]oprim) [facility] Last Admin: 01/28/20 08:08 Dose: 100 mg Documented by: Amiodarone HCl (Cordarone) 200 mg PO DAILY [facility] Stop: 01/31/20 10:01 Last Admin: 01/28/20 08:08 Dose: 200 mg Documented by: Amlodipine Besylate (Norvasc) 5 mg PO QHS [facility] Last Admin: 01/27/20 21:29 Dose: 5 mg Documented by: Aspirin (Aspirin, Baby) [facility] Last Admin: 01/28/20 08:08 Dose: 81 mg Documented by: Atorvastatin Calcium (Lipitor) 40 mg PO QHS [facility] Last Admin: 01/27/20 21:29 Dose: 40 mg Documented by: Bisacodyl (Dulcolax) 10 mg RECTAL .PRN X 1 PRN PRN Reason: Constipation Calamine/Phenol (Calmoseptine Ointment) 1 applic TOPICAL TID PRN; Protocol PRN Reason: RASH/TOPICAL IRRITATION Last Admin: 01/17/20 15:14 Dose: 1 appful Documented by: Calcium Carbonate (Tums) 500 mg PO DAILY [facility] Last Admin: 01/28/20 08:08 Dose: 500 mg Documented by: Clopidogrel Bisulfate (Plavix) 75 mg PO DAILY [facility] Last Admin: 01/28/20 08:07 Dose: 75 mg Documented by: Guaifenesin (Mucinex) 600 mg PO BID PRN PRN Reason: COUGH Heparin Sodium (Porcine) (Heparin Na) 5,000 unit SC Q12 [facility] Last Admin: 01/28/20 08:08 Dose: Not Given Documented by: Sodium Chloride () 1,000 mls @ 60 mls/hr IV .[id number] [facility] Stop: 01/29/20 09:39 Last Admin: 01/28/20 09:53 Dose: 60 mls/hr Documented by: Insulin Glargine (Lantus (Bkc)) 18 units SC DAILY [facility] Last Admin: 01/28/20 08:09 Dose: 18 u Documented by: Insulin Human Lispro (Humalog Kwikpen (Bkc)) 0 unit SC TIDAC [facility]; Protocol Last Admin: 01/28/20 08:03 Dose: Not Given Documented by: Insulin Human Lispro (Humalog Kwikpen (Bkc)) 10 unit SC DAILY@1700 [facility] Last Admin: 01/27/20 18:08 Dose: Not Given Documented by: Insulin Human Lispro (Humalog Kwikpen (Bkc)) 12 unit SC DAILY@0730 [facility] Last Admin: 01/28/20 08:09 Dose: 12 u Documented by: Insulin Human Lispro (Humalog Kwikpen (Bkc)) 6 unit SC DAILY@1200 [facility] Lidocaine (Lidoderm Patch) 1 patch TOPICAL DAILY [facility]; Protocol Last Admin: 01/28/20 08:10 Dose: Not Given Documented by: Magnesium Hydroxide (Milk Of Magnesia) 30 ml PO .PRN X 1 PRN PRN Reason: Constipation Magnesium Oxide (Mag-Ox 400) 400 mg PO DAILY [facility] Last Admin: 01/28/20 08:07 Dose: 400 mg Documented by: Metoprolol Succinate (Toprol Xl (Beta Lisy)) 100 mg PO DAILY [facility] Last Admin: 01/28/20 08:07 Dose: 100 mg Documented by: Multi-Ingredient Cream (Lacrilube) 1 applic OPHTHALMIC QHS [facility] Last Admin: 01/27/20 21:29 Dose: 1 applicatio Documented by: Nutritional Formula (Luke - Knott Flavor) 1 packet PO BIDCM [facility] Last Admin: 01/28/20 08:08 Dose: Not Given Documented by: Ondansetron HCl (Zofran Odt) 4 mg PO Q6H PRN PRN PRN Reason: NAUSEA/VOMITING Polyethylene Glycol (Miralax) 17 gm PO DAILY PRN PRN Reason: Constipation Senna (Senokot) 2 tablet PO DAILY [facility] Last Admin: 01/28/20 08:10 Dose: Not Given Documented by: Sodium Chloride () 10 - 40 ml IV UD PRN PRN Reason: SALINE FLUSH Tramadol HCl (Ultram) 50 mg PO Q6H PRN PRN Reason: Pain Score 1-10/10 Trazodone HCl (Desyrel) 50 mg PO QHS [facility] Last Admin: 01/27/20 21:29 Dose: 50 mg Documented by: Assessment/Plan All Active Problems (Last Reviewed 01/17/20 @ 14:[address] Tonja Marshall, DO) Acute blood loss anemia (Acute) Thrombocytopenia (Resolved) Decubitus ulcer, stage II (Resolved) Paroxysmal atrial fibrillation with RVR (Resolved) Acute renal failure superimposed on stage 3 chronic kidney disease (Acute) Constipation due to pain medication (Resolved) Physical debility (Acute) CHF (congestive heart failure) (Resolved) 1. SHA on CKD Stage 3 suspect hemodynamic changes. Creatinine baseline 1.5 on and 01/21/20 likely from diabetic, hypertensive nephropathy increased to 1.9 today. Nohemi 64 but was on lasix at the time. Urine output good. Agree with discontinuation of ACEI and lasix for now. No edema on exam. Avoid NSAIDs, iv contrast. 2. STEMI s/p heart cath , CABG on 01/08 asymptomatic 3. Debility from CABG, rehab 4. Anemia hgb stable 10.5g 5. DM2 primary care mgmt 6. HTN stable 7. Ischemic CMP EF 30%. 8. Recheck labs next Sunday on discharge. Thank you, will follow with you.
[2020-01-28 12:20] LABS: Bedside Glucose 219 mg/dL (70-110)
[2020-01-28] MEDS: Insulin Lispro 100 UNIT/ML INSULN.PEN 6 UNIT SC (12:26)
[2020-01-28] MEDS: Insulin Lispro 100 UNIT/ML INSULN.PEN SC ×2 (12:26→16:52)
--- NOTE | 2020-01-28 12:56 | CHAPLAIN ---
Type of Pastoral Visit ___ Initial Visit _x__ Follow-up Visit ___ On-call Visit ___ General Patient Visit ___ Spiritual Assessment ___ Family Conference ___ Bereavement ___ Rapid Response ___ Code Blue ___ Other (describe below) Pastoral Care Referral From _x__ Patient _x__ Family ___ Nurse ___ Physician ___ Svp Group Director ___ Alarm Installation Technician ___ Other (describe below) Sacrament/Intervention _x__ Active listening ___ Anointing ___ Hoahaoism ___ Bereavement ___ Communion ___ Lelo exploration ___ ___ Life review _x__ Prayer ___ Reconciliation ___ Sacrament of Sick _x__ Supportive presence ___ Wedding ___ Other (describe below) Pastoral Comments
[2020-01-28 13:08] LABS: Urea Nitrogen, Urine 920 mg/dL (NO RANGE EST.)
[2020-01-28] MEDS: Insulin Lispro 100 UNIT/ML INSULN.PEN 10 UNIT SC (16:52)
[2020-01-28 17:25] LABS: Bedside Glucose 192 mg/dL (70-110)
[2020-01-28 19:49] VITALS: BP 121/58; PULSE 66; RESP 16; TEMP 36.6; O2SAT 94
[2020-01-28] MEDS: traZODone 50 MG Tablet PO (21:26)
[2020-01-28] MEDS: Atorvastatin Calcium 40 MG Tablet PO (21:27)
[2020-01-28] MEDS: Petrolatum,White 3.75GM OPTH.TUBE 1 APPLIC OPHTHALMIC (21:27)
[2020-01-28] MEDS: amLODIPine 5 MG Tablet PO (21:28)
[2020-01-28] MEDS: Acetaminophen 500 MG Tablet 1000 MG PO (21:29)
[2020-01-28 22:00] VITALS: PULSE 66; RESP 17; O2SAT 95
[2020-01-28 22:31] LABS: Bedside Glucose 66 mg/dL (70-110)
[2020-01-28 22:31] LABS: Bedside Glucose 159 mg/dL (70-110)
[2020-01-29] LABS: Bedside Glucose 151 mg/dL (70-110)
[2020-01-29 00:21] LABS: Bedside Glucose 161 mg/dL (70-110)
[2020-01-29] MEDS: 0.9% Normal Saline 1,000 ML 60 ML IV (04:21)
[2020-01-29] MEDS: 0.9% Saline Lock 10 ML Syringe IV (04:27)
[2020-01-29 06:36] LABS: Bedside Glucose 143 mg/dL (70-110)
[2020-01-29 07:00] LABS: Bedside Glucose 173 mg/dL (70-110)
[2020-01-29 08:10] VITALS: BP 133/64; PULSE 72
[2020-01-29] MEDS: Metoprolol(XL)Succ 100 MG Tablet PO (08:10)
[2020-01-29] MEDS: Insulin Lispro 100 UNIT/ML INSULN.PEN 12 UNIT SC (08:11)
[2020-01-29] MEDS: Amiodarone 200 MG Tablet PO (08:11)
[2020-01-29] MEDS: Aspirin 81 MG TAB.CHEW PO (08:11)
[2020-01-29] MEDS: Clopidogrel Bisulfate 75 MG Tablet PO (08:11)
[2020-01-29] MEDS: Calcium Carbonate 500 MG Tablet PO (08:11)
[2020-01-29] MEDS: Magnesium Oxide 400 MG Tablet PO (08:11)
[2020-01-29] MEDS: Allopurinol 100 MG Tablet PO (08:11)
[2020-01-29] MEDS: Insulin Lispro 100 UNIT/ML INSULN.PEN SC ×2 (08:12→12:09)
[2020-01-29] MEDS: Glycerin/Hypromellose/PEG400 15 ml Bottle 1 DRP OPHTHALMIC (08:15)
[2020-01-29 08:19] VITALS: BP 133/64; PULSE 72; RESP 16; TEMP 36.5; O2SAT 96
[2020-01-29 09:23] LABS: Albumin, Serum 2.9 g/dL (3.2-5.0); BUN 29 mg/dL (7-18); BUN/Creat Ratio 14.9 RATIO (10-20); Calcium,Total 8.6 mg/dL (8.5-10.1); Chloride 109 mmol/L (98-107); Creatinine, Serum 1.95 mg/dL (0.55-1.02); EST Glomerular Filtration Rate 26 mL/min (>60); Est Glom Filt Rate - Afr Amer 32 mL/min (>60); Estimated Creatinine Clearance 17.59 ml/min; Glucose 264 mg/dL (74-106); Phosphorus 2.7 mg/dL (2.5-4.9); Potassium 4.1 mmol/L (3.5-5.1); Sodium Level 141 mmol/L (136-145)
[2020-01-29 11:26] LABS: Bedside Glucose 194 mg/dL (70-110)
[2020-01-29] MEDS: Insulin Lispro 100 UNIT/ML INSULN.PEN 6 UNIT SC (12:10)
[2020-01-29 13:04] LABS: Urine Sodium 65 mmol/L (Not Establ.)
[2020-01-29 13:15] LABS: Protein, Urine (Random) 54.3 mg/dL (<11.9); Protein:Creat Ratio 507 mg/g CRE (0-200)
--- NOTE | 2020-01-29 13:38 | PN.RENAL_ITS ---
Patient Problems: Active and Suspected Problems (Last Reviewed 01/17/20 @ 14:[address] Tonja Marshall, DO) Acute blood loss anemia (Acute) after CABG Acute renal failure superimposed on stage 3 chronic kidney disease (Acute) due to ATN post-op. Had intraoperative hypotension Subjective: denies CP, SOB. No edema. Remains off lasix and lisinopril. BP stable. Creatinine slightly elevated at 1.95. No uremic symptoms. Urine output good. PVR 15cc - Physical Exam Vitals/I&O's: Vital Signs Temp Pulse Resp BP Pulse Ox 97.7 F L 72 16 133/64 H 96 01/29/20 08:19 01/29/20 08:19 01/29/20 08:19 01/29/20 08:19 01/29/20 08:19 Oxygen Delivery Method Room Air Weight: 75 kg Body Mass Index (BMI) 32.1 Finger Stick Blood Glucose 220 Intake and Output for Last 24 Hours 01/27/20 01/28/20 01/29/20 23:59 23:59 23:59 Intake Total 1490 / 1490 892 / 1192 3211 / 3211 Output Total 1750 / 1750 1575 / 2075 1800 / 1800 Balance -260 / -260 -683 / -883 1411 / 1411 General: Alert, Oriented x3, Cooperative Lungs: Clear to auscultation Cardiovascular: Regular rate Extremities: No edema Laboratory Results 01/28/20 16:51: POC Glucose 192 H 01/28/20 21:37: POC Glucose 66 L 01/28/20 22:17: POC Glucose 159 H 01/28/20 23:15: POC Glucose 151 H 01/29/20 00:14: POC Glucose 161 H 01/29/20 04:20: POC Glucose 143 H 01/29/20 06:43: POC Glucose 173 H 01/29/20 09:00: Sodium 141, Potassium 4.1, Chloride 109 H, Carbon Dioxide 23.0, BUN 29 H, Creatinine 1.95 H, Estim Creat Clear Calc 17.59, Est GFR (MDRD) Af Amer 32 L, Est GFR (MDRD) Non-Af 26 L, BUN/Creatinine Ratio 14.9, Glucose 264 H, Calcium 8.6, Phosphorus 2.7, Albumin 2.9 L 01/29/20 11:20: POC Glucose 194 H 01/29/20 12:30: Urine Creatinine 111.00 01/29/20 12:30: U Random Total Protein 54.3 H, Urine Creatinine 107.00, Protein/Creatinin Ratio 507 H 01/29/20 12:30: Ur Random Sodium 65 Current Medications Acetaminophen (Tylenol) 1,000 mg PO QHS [facility] Last Admin: 01/28/20 21:29 Dose: 1,000 mg Documented by: Acetaminophen (Tylenol) 1,000 mg PO Q8H PRN PRN PRN Reason: Pain Score 1-10/10 Albuterol Sulfate (Ventolin Aerosols) 2.5 mg INHALATION Q4H PRN PRN PRN Reason: SOB &/OR WHEEZING [facility]) [facility] Last Admin: 01/29/20 08:11 Dose: 100 mg Documented by: Amiodarone HCl (Cordarone) 200 mg PO DAILY [facility] Stop: 01/31/20 10:01 Last Admin: 01/29/20 08:11 Dose: 200 mg Documented by: Amlodipine Besylate (Norvasc) 5 mg PO QHS [facility] Last Admin: 01/28/20 21:28 Dose: 5 mg Documented by: Aspirin ([facility]spirin, Baby) [facility] Last Admin: 01/29/20 08:11 Dose: 81 mg Documented by: Atorvastatin Calcium (Lipitor) 40 mg PO QHS [facility] Last Admin: 01/28/20 21:27 Dose: 40 mg Documented by: Bisacodyl (Dulcolax) 10 mg RECTAL .PRN X 1 PRN PRN Reason: Constipation Calamine/Phenol (Calmoseptine Ointment) 1 applic TOPICAL TID PRN; Protocol PRN Reason: RASH/TOPICAL IRRITATION Last Admin: 01/17/20 15:14 Dose: 1 appful Documented by: Calcium Carbonate (Tums) 500 mg PO DAILY [facility] Last Admin: 01/29/20 08:11 Dose: 500 mg Documented by: Clopidogrel Bisulfate (Plavix) 75 mg PO DAILY [facility] Last Admin: 01/29/20 08:11 Dose: 75 mg Documented by: Guaifenesin (Mucinex) 600 mg PO BID PRN PRN Reason: COUGH Heparin Sodium (Porcine) (Heparin Na) 5,000 unit SC Q12 [facility] Last Admin: 01/29/20 08:12 Dose: Not Given Documented by: Insulin Glargine (Lantus (Bkc)) 18 units SC DAILY [facility] Last Admin: 01/29/20 08:13 Dose: 18 u Documented by: Insulin Human Lispro (Humalog Kwikpen (Bkc)) 0 unit SC TIDAC [facility]; Protocol Last Admin: 01/29/20 12:09 Dose: 2 u Documented by: Insulin Human Lispro (Humalog Kwikpen (Bk)) 10 unit SC DAILY@1700 [facility] Last Admin: 01/28/20 16:52 Dose: 10 u Documented by: Insulin Human Lispro (Humalog Kwikpen (Bk)) 12 unit SC DAILY@0730 [facility] Last Admin: 01/29/20 08:11 Dose: 12 u Documented by: Insulin Human Lispro (Humalog Kwikpen (Bk)) 6 unit SC DAILY@1200 [facility] Last Admin: 01/29/20 12:10 Dose: 6 u Documented by: Lidocaine (Lidoderm Patch) 1 patch TOPICAL DAILY [facility]; Protocol Last Admin: 01/29/20 08:13 Dose: Not Given Documented by: Magnesium Hydroxide (Milk Of Magnesia) 30 ml PO .PRN X 1 PRN PRN Reason: Constipation Magnesium Oxide (Mag-Ox 400) 400 mg PO DAILY [facility] Last Admin: 01/29/20 08:11 Dose: 400 mg Documented by: Metoprolol Succinate (Toprol Xl (Beta Lisy)) 100 mg PO DAILY [facility] Last Admin: 01/29/20 08:10 Dose: 100 mg Documented by: Multi-Ingredient Cream (Lacrilube) 1 applic OPHTHALMIC QHS [facility] Last Admin: 01/28/20 21:27 Dose: 1 applicatio Documented by: Nutritional Formula (Luke - [place] Flavor) 1 packet PO BIDCM [facility] Last Admin: 01/29/20 08:12 Dose: Not Given Documented by: Ondansetron HCl (Zofran Odt) 4 mg PO Q6H PRN PRN PRN Reason: NAUSEA/VOMITING Polyethylene Glycol (Miralax) 17 gm PO DAILY PRN PRN Reason: Constipation Senna (Senokot) 2 tablet PO DAILY [facility] Last Admin: 01/29/20 08:13 Dose: Not Given Documented by: Sodium Chloride () 10 - 40 ml IV UD PRN PRN Reason: SALINE FLUSH Last Admin: 01/29/20 04:27 Dose: 10 ml Documented by: Tramadol HCl (Ultram) 50 mg PO Q6H PRN PRN Reason: Pain Score 1-10 Trazodone HCl (Desyrel) 50 mg PO QHS [facility] Last Admin: 01/28/20 21:26 Dose: 50 mg Documented by: Medical Necessity - Tobacco Use Smoking Status: Never smoker Tobacco Use: Non-smoker Assessment/Plan All Active Problems (Last Reviewed 01/17/20 @ 14:[address] Tonja Marshall, DO) Acute blood loss anemia (Acute) Thrombocytopenia (Resolved) Decubitus ulcer, stage II (Resolved) Paroxysmal atrial fibrillation with RVR (Resolved) Acute renal failure superimposed on stage 3 chronic kidney disease (Acute) Constipation due to pain medication (Resolved) Physical debility (Acute) CHF (congestive heart failure) (Resolved) 1. SHA on CKD Stage 3 suspect hemodynamic changes. Volume status stable, no uremic symptoms. Creatinine baseline 1.5 on and 01/21/20 likely from diabetic, hypertensive nephropathy increased to 1.95 today. Ok to dc to home with follow up labs next week. Continue to hold lasix and lisinopril for now. 2. STEMI s/p heart cath , CABG on 01/08 [facility] primary service
[2020-01-29 13:39] VITALS: BP 133/64; PULSE 72; RESP 16; TEMP 36.5; O2SAT 96
--- NOTE | 2020-01-29 13:41 | NURSING ---
discharged home with daughter. discharged instruction, medication and follow up appts reviewed with the pt. denied questions or concerns.
== END 2020-01-29 13:43 | disposition home health service (06) | DRG 949 ==
PROVIDERS: Internal Medicine Nephrology; Admitting Provider Internal Medicine; PCP Internal Medicine; Visit Provider Internal Medicine
DX: Z48.812 Encounter for surgical aftercare following surgery on the circulatory system (principal); I21.3 ST elevation (STEMI) myocardial infarction of unspecified site; I50.22 Chronic systolic (congestive) heart failure; I13.0 Hypertensive heart and chronic kidney disease with heart failure and stage 1 through stage 4 chronic kidney disease, or unspecified chronic kidney disease; D62 Acute posthemorrhagic anemia; N39.0 Urinary tract infection, site not specified; I25.5 Ischemic cardiomyopathy; E78.5 Hyperlipidemia, unspecified; N18.3 Chronic kidney disease, stage 3 (moderate); H81.10 Benign paroxysmal vertigo, unspecified ear; L89.312 Pressure ulcer of right buttock, stage 2; I48.0 Paroxysmal atrial fibrillation; I25.10 Atherosclerotic heart disease of native coronary artery without angina pectoris; E11.22 Type 2 diabetes mellitus with diabetic chronic kidney disease; M1A.9XX0 Chronic gout, unspecified, without tophus (tophi); Z95.1 Presence of aortocoronary bypass graft
CPT/HCPCS: 36415; 80048; 80053; 80069; 81001; 82040; 82306; 82570; 82962; 83036; 83735; 84100; 84156; 84300; 84540; 85025; 85027; 87086; 87088; 93005; 93970; 97110; 97116; 97162; 97166; 97530; 97535; 97802; 99251; J7030; A4216; G0463

== ENCOUNTER 2020-02-02 16:35 | Outpatient (RCR) | payer MEDICARE, OTHER, SELFPAY ==
[2020-01-17 11:52] VITALS: BMI 32.1
[2020-02-02 16:59] LABS: BUN 25 mg/dL (7-18); BUN/Creat Ratio 15.3 RATIO (10-20); Calcium,Total 8.9 mg/dL (8.5-10.1); Chloride 109 mmol/L (98-107); Creatinine, Serum 1.63 mg/dL (0.55-1.02); EST Glomerular Filtration Rate 32 mL/min (>60); Est Glom Filt Rate - Afr Amer 39 mL/min (>60); Glucose 144 mg/dL (74-106); Phosphorus 3.5 mg/dL (2.5-4.9); Potassium 4.1 mmol/L (3.5-5.1); Sodium Level 141 mmol/L (136-145)
== END 2020-02-02 18:00 | disposition home or self-care (01) ==
LOC: HHLAB 16:35
PROVIDERS: PCP Internal Medicine; Referring Provider Internal Medicine Nephrology; Visit Provider Internal Medicine Nephrology
DX: N17.9 Acute kidney failure, unspecified (principal)
CPT/HCPCS: 80069

== ENCOUNTER → 2020-02-23 | Outpatient (CLI) | payer MEDICARE, OTHER, SELFPAY ==
[2020-01-17 11:52] VITALS: BMI 32.1
[2020-02-23 14:57] LABS: Hemoglobin 11.7 g/dL (12.0-15.0); Mean Corp Hgb Conc 31.6 g/dL (32-36); Mean Corpuscular Hgb 29.9 pg (27.0-32.0); Mean Corpuscular Volume 94.6 fL (81-99); Mean Platelet Vol. 11.2 fl (6.2-12.0); Platelet Count 275 K/mm3 (150-450); RBC Distribution Width CV 14.8 % (11.6-14.6); Red Blood Count 3.91 M/mm3 (4.2-5.4); White Blood Count 10.1 K/mm3 (4.4-11.0)
[2020-02-23 14:58] LABS: ALB/GLOB Ratio 0.9 RATIO (0.9-2.4); AST(SGOT) 18 U/L (15-37); Alanine Aminotransfer ALT/SGPT 25 U/L (13-56); Albumin, Serum 3.2 g/dL (3.2-5.0); Alkaline Phosphatase 101 U/L (45-117); Anion Gap 7 (5-15); BUN 28 mg/dL (7-18); BUN/Creat Ratio 18.7 RATIO (10-20); Calcium,Total 9.1 mg/dL (8.5-10.1); Chloride 107 mmol/L (98-107); EST Glomerular Filtration Rate 35 mL/min (>60); Est Glom Filt Rate - Afr Amer 43 mL/min (>60); Globulin 3.7 g/dL (2.2-4.2); Glucose 160 mg/dL (74-106); Protein, Total 6.9 g/dL (6.4-8.2); Sodium Level 140 mmol/L (136-145)
== END | disposition home or self-care (01) ==
LOC: LABSPEC 14:09
PROVIDERS: PCP Internal Medicine; Referring Provider Internal Medicine; Visit Provider Internal Medicine
DX: I25.5 Ischemic cardiomyopathy (principal); N99.0 Postprocedural (acute) (chronic) kidney failure; I25.2 Old myocardial infarction
CPT/HCPCS: 80053; 85027

== ENCOUNTER → 2020-03-16 10:22 | Outpatient (CLI) | payer MEDICARE, OTHER, SELFPAY ==
[2020-03-02 10:40] VITALS: BMI 32.1
--- NOTE | 2020-03-16 10:31 | CR.ITP_ITS ---
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 at [facility] Personal Learning Style:: Audio/Visual, Written Barriers to Learning: Hearing Impairment, Vision Impairment Stage of change r/t lifestyle modifications:: Action Gave educational material for:: Treating Heart Disease, Emotions & Heart Disease, Stress Management & Relaxation, Sleep Disorders & Heart Disease, How The Heart Works, What it means to have Heart Disease, How Coronary Artery Disease is Diagnosed, Heart Procedures, What Heart Medications Do, Risk Factors & Modifications, Living an Active Life, Nutrition - Education/Goals Individual Counseling: Initial Assessment: Abnormal Cholesterol Levels, High Blood Pressure, Overweight/Obesity, Diabetes Cardiac Rehabilitation Goals: 1. Maintain the individual as the primary focus of care. 2. To improve the patient's quality of life. 3. Identification of cardiac risk factors and provide cardiac risk factor management. 4. Enhance the psychosocial status of the patient. 5. Reconditioning enough to allow the patient to resume customary activities. 6. Control symptoms of cardiac disease Personal Goals: Initial Assessment: Improve energy level, Get back to work, or to resume activities faster, Improve muscle strength and endurance, Control risk factors (learn risk factor modification) Scale for measuring improvement of personal goals: Enter appropriate number in Comments. 2 = Unchanged. 3 = Slightly Better. 4 = Moderate Improvement. 5 = Met my Goal - Diagnosis & Disease Process Outcomes/Goals: Pt IDs own risk factors & lifestyle modifications by Session 10, Verbalizes symptoms of angina & response by session 3., Pt independently manages Plan/Interventions: Assist Pt to ID & engage in lifestyle modification to reduce CVD risk, Instruct on individual risk factors, Review symptoms of angina & emergency actions, Review secondary diagnosis & identify educational needs. - Safety Referral to Physical Therapy: No Referral to [facility] Case Management: No Fall Risk Assessed:: Yes Assistive Devices:: None Exercise - Initial Assessment - Visit Date of Eval: 03/16/20 - SCHEDULED PATIENT TO START CR Session #:: 0 - INITIAL EVALUATION Mets: Pre-: >5 METS for 30 minutes by discharge - Physician Prescribed Exercise Modalities: Treadmill, Airdyne, NuStep Frequency: 3x/week for 12 weeks [36 sessions] Intensity: 60-80% of age predicted maximum heart rate reserve Current METSs:: 3.0 Target Heart Rate:: 90-116 Maximum Exercise Blood Pressure: 128/62 EKG Type: NSR w/incomplete RBBB Current Physical Activity or Exercising minutes: active daily > 30 minutes - Outcomes & Goals Goals:: Verbalizes understanding of THR, RPE & goal METS by session 6, Documents in home exercise log/reports 30 min aerobic 5 day/wk by DC, Demonstrates accurate pulse taking by DC - Intervention & Plan Exercise Program Goals: Instruct on personal THR & RPE, Instruct on MET level & personal MET goal, Show patient to take own pulse /validate performance until accurate, Instruct on home exercise - Physical Activity Home Exercise Physical Activity - Home Exercise: Safe Exercise, Warm-up, Self-monitoring, Cool-Down, Home Exercise > 30 min Daily, Sitting Time <3 hours/daily - Outcomes & Goals Outcomes/Goals: Demonstrates correct Warm-up/exercise Cool-Down (S3) if = 2.5 METs, Verbalizes symptoms of exercise intolerance by Session 3 (S3), Demonstrate safe equipment use (S3) & follows exercise prescrition (6) - Intervention & Plan Plan/Intervention: Instruct warm-up & cool-down if exercising at > 2 METs, Instruct on symptoms of exercise intolerance & actions to take, Instruct & monitor on saf, Assess intial functional capacity & safety risk Nutrition - Initial Assessment - Program Goals Nutrition Program Goals: LDL <100 optimal. 100 - 129 Near optimal. 130 - 159 Borderline High. 160 - 189 High. Total Cholesterol <200 desirable. 200 - 239 Borderline High. >/= 240 High. HDL < 40 Low >/=60 High. Triglycerides <150 desirable. <199 optimal. VlDL 5 - 40. HgbA1C <7%. BMI <25 Patient has diagnosis of Hyperlipidemia (ICD E78)?: Yes - Visit Date of Assessment:: 03/16/20 - SCHEDULED PATIENT TO START CR Session #:: 0 - INITIAL EVALUATION - Cholesterol/Lipids Triglycerides (mg/dL): 276 Total Cholesterol (mg/dL): 150 LDL Cholesterol (mg/dL): 164 HDL Cholesterol (mg/dL): 46 Determine presence & major risk factors that modify LDL goal: Hypertension or hypertensive medication, Age men > 45 years; women >/= 55 years Outcomes/Goals: Pt IDs own risk factors & lifestyle modifications by Session 10, Verbalizes symptoms of angina & response by session 3., Pt independently manages Intervention/Plan: Instruct on personal lipid levels & lipid goals/NCEP guidelines, Instruct on cholesterol Referral to dietitian:: Yes - Diabetes (Other Core Measures) Diabetes Type: Diagnosis Type II ICD-10 E11 Fasting blood glucose:: 160 Hgb A1C (4.2 - 6.3): 7.7 Insulin dependent injection/pump?: Yes Non-Insulin Dependent?: Yes Do you monitor your blood sugar at home?: Yes Referral to Diabetic Clinic:: Yes Outcomes/Goals:: Able to state symptoms of, Able to state, Able to state Intervention/Plan:: Instruct on, Refer to, Instruct on - Weight Mgt (Other Care) Not Applicable: Yes Height: 5 ft 2 in Weight:: 166 lb BMI: 30.3 Diagnosis Overweight/Obesity BMI> 30% ICD-10 E66: Yes Diagnosis High BMI/Morbid Obesity BMI> 35% ICD-10 Z68: No Outcomes/Goals: Pt sets, maintains & shows weight loss goal & trend during rehab Intervention/Plan: Instruct on ideal BMI & set weight loss goal w/patient, Assist pt to ID & incorporate diet changes for weight loss by S9, Refer to Structured Weight Loss program as appropriate, Encourage goal of using 250- 300dcal per session for weight loss - Healthy Eating Habits Will attend diet classes:: Yes Outcomes/Goals:: Consume diet rich in vegs,fruits,whole grain/high fiber,fish,lean meat, Limit sat/trans fats,cholesterol & added salts & sugars Intervention/Plan:: Assess current eating habits - Education Gave educational materials for:: Signs & symptoms of hypoglycemia, Signs & symptoms of hyperglycemia, Relate diabetes to coronary artery disease, Healthy eating Medical - Initial Assessment - Visit Date of Eval: 03/16/20 - SCHEDULED PATIENT TO START CR Session #:: 0 - INITIAL EVALUATION - Medication Compliance Preventative Medication(s):: Aspirin, Clopidogrel/P2Y12 inhibit, Statin/lipid, Beta shravan H/O mental health issues: depression, anxiety, or addiction?: Yes Doesn?t believe in the benefits of treatment?: No Believes medications are unnecessary or harmful?: No Has a concern about medication side effects?: No Expresses concern over the cost of medications?: No Outcomes/Goals: Verbalizes medications,desired effect & common side effects @ DC, Pt self-reports following medication regimen, Keeps card in wallet w/medications listed by DC Interventions/plans: Instruct on medication effects & side effects, Review medication list w/patient every two weeks, Instruct importance of taking meds as ordered & assist problem solving - Tobacco Use Tobacco Use: Non-smoker - Hypertension Hypertension Diagnosis:: Hypertension ICD-10 I10 Resting Blood Pressure:: 128/62 [place] [employer] Hypertension Guidelines: [place] [employer] Hypertension Guidelines. Normal BP Less than 120/80. Elevated BP 120/80. Hypertension Stage 1: BP 130-139/80-89. Hypertesnion Stage 2: BP 140 or higher/90 or higher. Hypertension Crisis: BP higher than 180/120 Outcomes/Goals: Able to verbalize/achieve optimal blood pressure <130/80, Incorporates diet changes & exercise for blood pressure control by DC Interventions/plan: Instruct on optimal blood pressure, hypertension & medications, Instruct on effects of sodium, alcohol, stress, exercise &hypertension - Tobacco Cessation Referral Smoking Cessation Referral:: No Individual Education/Counseling:: No Education Schedule Given:: Yes Psychosocial - Initial Assess - VIsit Date of Eval: 03/16/20 - SCHEDULED PATIENT TO START CR Session #:: 0 - INITIAL EVALUATION Not Applicable: Yes History of previous Mental disease:: No History of Emotional Disorders: Anxious - Target Goals Target Goals: Assess presence or absence of depression. Using a valid screening tool, maximizes coping skills. Positive support system - Psychosocial Test Tool Used:: Vedicis QOL Cardiac, PHQ-9 Questionnaire phq-9 Severity: Severity. 1-4 Minimal Depression. 5-9 Mild Depression. 10-14 Moderate Depression. 15-19 Moderately Sever Depression. 20-27 Severe Depression. Rule: See PHQ-9 Score: 10 - MODERATE DEPRESSION PER PHQ-9 SCORE - Referral to Behavioral Health PS - Interventions: Yes Referral to Behavioral Health if PHQ-9 score >9: - DR. PEARCE, Yes Referral to Physician if PHQ-9 if score is 5-9: - DR. PEARCE, Yes Attend Stress Management Classes, No Referral to [facility] - Outcomes/Goals: See list Psychosocial Outcomes/Goals:: ID's personal stressors & 2 strategies to manage stress by discharge - Intervention/Plan: See List Interventions/Plan:: Assess stressors,coping strategies & signs of derpression on admission, Instruct/assist pt to develop coping & personal stress Mgt strategies, Instruct patient to recognize signs & symptoms of depression, Instruct patient to recog Patient Health Questionnaire Initial Assessment 1. Little interest or pleasure in doing things: Nearly every day 2. Feeling down, depressed, or hopeless: Not at all 3. Trouble falling or staying asleep, or sleeping too much: More than half the days 4. Feeling tired or having little energy: Nearly every day 5. Poor appetite or overeating: More than half the days 6. Feeling bad about yourself -- or that you are a failure or have let yourself or your family down: Not at all 7. Trouble concentrating on things, such as reading the newspaper or watching television: Not at all 8. Moving or speaking so slowly that other people could have noticed. Or the opposite - being so fidgety or restless that you have been moving around a lot more than usual: Not at all 9. Thoughts that you would be better off , or of hurting yourself in some way: Not at all How difficult have these problems made it for you to do your work, take care of things at home, or get along with other people?: Somewhat difficult Total Score: 10 ELISE-Q SV Test - Statements CAD is a disease of the arteries in the heart: False Examples of risk factors for heart disease: True Angina is chest pain or discomfort: True The benefits of resistance training include: True Eating more meat and dairy products: True Anti-platelet medications such as aspirin are important: True The only effective way to manage stress: False An exercise warm-up slowly increases heart rate: True Prepared, processed foods usually have high sodium: True Depression is common after a heart attack: True The statin medications lower cholesterol: True To control blood pressure, lower the amount of sodium: True If someone gets chest discomfort during walking: False Transfats are partially hydrogenated vegetable oils: I Don't Know Sleep apnea that is not treated increases the risk: True To control cholesterol, one should become a vegetarian: False Someone knows if he/she is exercising at the right level: True Diabetes cannot be prevented with exercise & health eating: False Stress is a large risk for heart attack: True A diet that can help lower blood pressure is rich in: True - Total Score Total Correct Responses: 17 Self-Efficacy Initial Assessment We would like to know how confident you are in doing certain activities. Please select your confidence level for:: Select your confidence level for the following using the scale 1-10 where 1 is not at all confident and 10 is totally confident. Your score is the average of all 6 responses. Fatigue: How confident are you that you can keep the fatigue caused by your disease from interfering with the things you want to do? Select Number: 5 Physical Discomfort or Pain: How confident are you that you can keep the physical discomfort or pain of your disease from interfering with the things you want to do? Select Number: 3 Emotional Distress: How confident are you that you can keep the emotional distress caused by your disease from interfering with the things you want to do? Select Number: 2 Other Symptoms or Health Problems: How confident are you that you can keep other symptoms or health problems from interfering with the things you want to do? Select Number: 6 Different Tasks and Activities: How confident are you that you can do the different tasks and activities needed to manage your health condition so as to reduce your need to see a doctor? Select Number: 8 Medication: How confident are you that you can do things other than just taking medication to reduce how much your illness affects your everyday life? Select Number: 6 Total Score:: 5 Nutrition Survey - Nutrition Survey Instructions Scoring Instructions: Scoring is as follows: Yes = 1 points. No = 0 point. Patient score that is >/=12 is considered to be at potential nutritional risk and could benefit from a referral to a registered dietitian. - Nutrition Survey Initial Have you lost >10 lbs over the past 2 months without trying?: No Are you following a special diet at home for diabetes, low fat, or low salt?: Yes Are you interested in meeting with a dietitian for help understanding your diet?: No Do you eat less than 3 meals a day?: No Do you eat fatty meats (ruiz, sausage, ribs, etc), fried foods, desserts, large amounts of salad dressings, margarine, butter, or cheese most days?: Yes Do you have food allergies? [Enter types in comment field]: No Do you eat in restaurants more than 3 times a week?: No Do you season food with salt, seasoning salt, or garlic salt?: Yes Do you used canned, boxed, frozen meals, or soups, seasoning packets?: Yes Total Score:: 4
--- NOTE | 2020-03-16 10:32 | PCM.CR.HP2 ---
CR - History & Physical - General Arrival date:: 03/16/20 Arrival time:: 10:32 Date of Referral:: 01/09/20 Date of CR Evaluation:: 03/16/20 Referring Physician: DR. NOEL Primary Diagnosis: CABG - History of Present Cardiac Event Onset Date: Enter Onset Date of cardiac illnesses in Comment field below Coronary Artery Bypass Graft:: Yes - 01/09/2020 Heart Failure EF <35%:: Yes - LVEF CURRENTLY 30% PER ECHOCARDIOGRAM Type of Symptoms:: CHEST HEAVINESS, NOT NECESSARILY PAIN, JUST DIDN'T FEEL GOOD. Interventions with present event:: HAD INPAIENT REHAB ON 4TH FLOOR [facility] AFTER DISCHARGE. Were there any complications?: NONE - Medications Home Medications: Ambulatory Orders Medication Instructions Recorded Allopurinol [Zyloprim] 100 mg PO DAILYCM 04/28/14 [place]-3 Fatty Acids/Fish Oil 1 ea PO DAILY 01/03/20 [[place] 3 1,000 mg Softgel] Aspirin 81 mg PO DAILY 01/17/20 Calcium Carbonate/Vitamin D3 1 ea PO DAILY 01/17/20 [Calcium 600 + Vit D Tablet] Clopidogrel Bisulfate [Plavix] 75 mg PO DAILY 01/17/20 CycloSPORINE Ophthalmic [Restasis 1 drp EACH EYE BID 01/17/20 Ophthalmic] Metoprolol Succinate [Toprol Xl] 100 mg PO DAILY 01/17/20 traZODone [Desyrel] 50 mg PO QHS #30 tab 01/27/20 atorvastatin 40 mg tablet 20 mg PO QHS tab 03/02/20 insulin aspart U-100 100 unit/mL 8 unit SUBCUT QAC ml 03/02/20 (3 mL) subcutaneous pen insulin glargine 100 unit/mL (3 11 unit SUBCUT DAILY ml 03/02/20 mL) subcutaneous pen amlodipine 5 mg tablet 5 mg PO DAILY 03/03/20 - Allergies Allergies/Adverse Reactions: Allergies codeine Adverse Reaction (Verified 03/02/20 13:15) Nausea/Vom/Diarrhea - Sleep Disorder Evaluation Hx of Sleep Apnea: No Do you snore loudly (louder than talking or can be heard through closed doors)?: Yes Do you often feel tired/ fatigued/ sleepy during daytime?: Yes Has anyone observed you stop breathing during sleep?: No History of Hypertension (for STOP score): Yes STOP Results: Positive Advanced Directives - Advanced Directives Power of Invoice Classification Clerk: Yes Living Will: Yes Advance Directives Information Provided: No Advance Directives on File: Yes DNR Order?:: No - MOLST See MOLST form: No Past Medical History - Past Medical Illness Medical History: Past Medical History (Last Reviewed 03/02/20 @ 13:[address] Gomez Noel MD) Atherosclerosis of coronary artery of [place] heart without angina pectoris (Chronic) I25.10 Ischemic cardiomyopathy (Chronic) I25.5 30% EF Diverticulosis (Chronic) K57.90 Internal hemorrhoids (Chronic) K64.8 Nonrheumatic mitral valve regurgitation (Chronic) I34.0 Moderate Mild atrial enlargement, left (Chronic) I51.7 Benign paroxysmal positional vertigo (Chronic) H81.10 Chronic renal failure, stage 3 (moderate) (Chronic) N18.3 Acute blood loss anemia (Acute) D62 after CABG Carotid stenosis, right (Chronic) I65.21 40 to 59% Paroxysmal atrial fibrillation with RVR (Chronic) I48.0 on amiodarone Acute renal failure superimposed on stage 3 chronic kidney disease (Acute) N17.9, N18.3 due to ATN post-op. 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 Gomez Noel MD) History of coronary artery bypass graft (Chronic) Z95.1 CHAUDHARI-LAD, CHAUDHARI- diagonal, SVG-OM, SVG-RCA 01/09/20 H/O angioplasty (Chronic) Z98.62 1988 History of cholecystectomy Z90.49 History of left heart catheterization Z98.890 01/03/[address] Noel at 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 Social Environment - Status Marital Status: - Current Living Arrangements Living Environment:: Spouse - Children How many children do you have?: 2 Do any of your children live nearby?: Yes - Safety Do you feel safe in your surroundings?: Yes - Assistance Do you need any assistance at home?: NO Review of Systems - Review of Systems Hints: Right click = Denies (Slash). Left click = Reports ([place]) Review of Present Symptoms: Reports: Wound Healing, Fatigue, Heart Arrhythmia/Irregularities - H/O INCOMPLETE RBBB, Appetite - Normal - RETURNING TO NORMAL, BETTER THAN IT WAS IN THE HOSPITAL., Appetite - Special Diet - TRYING TO CUT OUT FRIED FOODS., Sleep - Normal. Denies: Shortness of Breath at Rest, Shortness of Breath with Exertion, Operative Discomfort, Angina, Dizziness/Lightheadedness, Sexual Changes - Pain Is Patient Pain Free?: Yes Pain Location: none Pain Level: 0/10 Risk Factor Assessment - Chief Complaint Chief Complaint: PATIENT IS A [address] NOEL WHO PRESENTS TO CR TODAY FOLLOWING CABG DONE ON 01/09/2020. HER EVALUATION FR CR WAS POSTPONED FOR PATIENT SAFETY DURING HTE COVID-19 PANDEMIC AND CLOSURE OF THE PROGRAM FROM 02/05/2020 THROUGH 03/08/2020. - Vital Signs Temperature: 97.6 F Respiratory Rate: 16 Pulse Ox: 93 Blood Pressure: 128/62 - Pulse Pulse Rate: 67 Pulse Rhythm: Regular - Hypertension Blood Pressure Sitting - Left Arm: 128/62 - Blood Cholesterol/Lipids Total Cholesterol (mg/dL) Goal = less than 200 mg/dL: 150 HDL Cholesterol (mg/dL) Goal = less than 40 mg/dL: 46 LDL Cholesterol (mg/dL) Goal = less than 70 mg/dL: 164 Triglycerides (mg/dL) Goal = less than 150 mg/dL: 276 - Diabetes Diabetic History: Type II Nutrition Referral for Diabetes: Yes - Obesity Height: 5 ft 2 in Weight:: 166 lb Weight in Pounds: 166.0 lbs Weight Source: Stated by Patient Body Mass Index (BMI): 30.3 Nutritional Referral for Obesity: Yes - Physical Inactivity Physical Inactivity: Recreational activity - Risk Stratification Risk Guidelines: Lowest Risk: Risk Factor for Dyslipidemia, Risk Factor for Diabetes, Risk Factor for Obesity, Risk Factor for Hypertension - For Smoking Smoking Risk Guidelines: Smoking Low Risk: None or quit greater than 6 months ago. Smoking Moderate Risk: Smoker or quit 6 months or less ago. Smoking High Risk: Smoker - For Dyslipidemia Dyslipidemia Risk Guidelines: Low Risk: Moderate Risk: High Risk: 15-25% fat 25.1-29% fat >/= 30% fat. <7% sat fat 7-9% sat fat >9% sat fat. <150 mg chol 150-299 mg chol >/= 300 mg chol. LDL <100 LDL 100-129 LDL >/= 130. Chol/HDL ratio <5.0 Chol/HDL ratio 5.0-6.0 Chol/HDL ratio >6.0. Triglycerides <100 Triglycerides 100-149 Triglycerides >/= 150 - For Diabetes Mellitus Diabetes Risk Guidelines: Diabetes Low Risk: HgA1c <6.5% and/or FBG <120. Diabetes Moderate Risk: HgA1c 6.6-7.9% and/or FBG 120-180. Diabetes High Risk: HgA1c >/= 8% and/or FBG >180 - For Obesity/Overweight Obesity/Overweight Risk Guidelines: Obesity Low Risk: BMI <25.0. Obesity Moderate Risk: BMI 25-29.9. Obesity High Risk: BMI >/= 30.0 - For Hypertension Hypertension Risk Guidelines: Hypertension Low Risk: Systolic <120 and Diastolic <80. Hypertension Moderate Risk: Systolic 120-139 and Diastolic 80-89. Hypertension High Risk: Systolic >/= 140 and Diastolic >/= 90 - For Sedentary Lifestyle Sedentary Lifestyle Risk Guidelines: Sedentary Lifestyle Low Risk: >/= 1,500 kcal/week. Sedentary Lifestyle Moderate Risk: 700-1,499 kcal/week. Sedentary Lifestyle High Risk: < 700 kcal/week - For Depression Depression Risk Guidelines: Depression Low Risk: Not clinically depressed. Depression Moderate Risk: Mildly depressed. Depression High Risk: Clinically depressed Motivation - Motivation to Participate On a scale of 1 to 10, how prepared are you to commit to attending program?: 8 - DEPENDING ON WHAT I AM REQUIRED TO DO! What do you see as barriers to successfully being able to complete the program?: NONE What do you see as the benefits of succesfully completing the program? In other words, what do you hope to get out of participating in the program?: MORE STRENGTH Are there issues you are dealing with that will interfere with completing the program?: NONE Do you have a spouse or signficant other, family or friends who will help support you to complete the program?: YES.
[2020-03-16 11:00] VITALS: BP 128/62; PULSE 67; RESP 16; TEMP 36.4; O2SAT 93; BMI 30.3
[2020-03-16 11:05] VITALS: BP 128/62; BMI 30.3
== END ==
PROVIDERS: PCP Internal Medicine; Referring Provider Specialist; Visit Provider Specialist
DX: I25.10 Atherosclerotic heart disease of native coronary artery without angina pectoris (principal); Z95.1 Presence of aortocoronary bypass graft; I25.5 Ischemic cardiomyopathy; E78.5 Hyperlipidemia, unspecified; E11.22 Type 2 diabetes mellitus with diabetic chronic kidney disease; I12.9 Hypertensive chronic kidney disease with stage 1 through stage 4 chronic kidney disease, or unspecified chronic kidney disease; N18.3 Chronic kidney disease, stage 3 (moderate); K57.90 Diverticulosis of intestine, part unspecified, without perforation or abscess without bleeding; I34.0 Nonrheumatic mitral (valve) insufficiency; I65.21 Occlusion and stenosis of right carotid artery; I48.0 Paroxysmal atrial fibrillation; I25.2 Old myocardial infarction; Z86.73 Personal history of transient ischemic attack (TIA), and cerebral infarction without residual deficits; N28.1 Cyst of kidney, acquired; M10.9 Gout, unspecified; Z79.82 Long term (current) use of aspirin; Z79.4 Long term (current) use of insulin; Z79.02 Long term (current) use of antithrombotics/antiplatelets; Z79.899 Other long term (current) drug therapy

== ENCOUNTER 2020-04-02 15:15 | Outpatient (RCR) | payer MEDICARE, OTHER, SELFPAY ==
[2020-03-16 11:00] VITALS: BMI 30.3
[2020-03-16 11:05] VITALS: BMI 30.3
== END 2020-04-04 23:59 ==
LOC: CR 15:15
PROVIDERS: PCP Internal Medicine; Referring Provider Specialist; Visit Provider Specialist
DX: I25.5 Ischemic cardiomyopathy (principal); Z95.1 Presence of aortocoronary bypass graft; I25.10 Atherosclerotic heart disease of native coronary artery without angina pectoris
CPT/HCPCS: 93798

== ENCOUNTER 2020-04-14 13:30 | Outpatient (RCR) | payer MEDICARE, OTHER, SELFPAY ==
[2020-03-16 11:00] VITALS: BMI 30.3
[2020-03-16 11:05] VITALS: BMI 30.3
== END 2020-05-04 23:59 ==
LOC: DC 13:30
PROVIDERS: PCP Internal Medicine; Visit Provider Specialist
DX: Z71.3 Dietary counseling and surveillance (principal); I10 Essential (primary) hypertension; E11.9 Type 2 diabetes mellitus without complications; E78.5 Hyperlipidemia, unspecified
CPT/HCPCS: 97802

== ENCOUNTER 2020-05-03 15:15 | Outpatient (RCR) | payer MEDICARE, OTHER, SELFPAY ==
[2020-03-16 11:00] VITALS: BMI 30.3
[2020-03-16 11:05] VITALS: BMI 30.3
== END 2020-05-04 23:59 ==
LOC: CR 15:15
PROVIDERS: PCP Internal Medicine; Referring Provider Specialist; Visit Provider Specialist
DX: I25.5 Ischemic cardiomyopathy (principal); Z95.1 Presence of aortocoronary bypass graft; I25.10 Atherosclerotic heart disease of native coronary artery without angina pectoris
CPT/HCPCS: 93798

== ENCOUNTER 2020-05-19 13:25 | Outpatient (RCR) | payer MEDICARE, OTHER, SELFPAY ==
[2020-03-16 11:00] VITALS: BMI 30.3
[2020-03-16 11:05] VITALS: BMI 30.3
[2020-05-18 06:45] VITALS: BMI 31.1
== END 2020-06-04 23:59 ==
LOC: DC 13:25
PROVIDERS: PCP Internal Medicine; Visit Provider Specialist
DX: Z71.3 Dietary counseling and surveillance (principal); I10 Essential (primary) hypertension; E11.9 Type 2 diabetes mellitus without complications; E78.5 Hyperlipidemia, unspecified
CPT/HCPCS: 97803

== ENCOUNTER → 2020-06-03 13:43 | Outpatient (CLI) | payer MEDICARE, OTHER, SELFPAY ==
[2020-03-16 11:00] VITALS: BMI 30.3
[2020-03-16 11:05] VITALS: BMI 30.3
[2020-05-18 06:45] VITALS: BMI 31.1
--- NOTE | 2020-06-03 13:43 | ECHOD_ITS ---
Reason For Study: CHF Procedure This was a 2D Doppler, Color Flow transthoracic echocardiogram. Exam performed in department. Left Ventricle Normal LV size. The estimated ejection fraction is 55 %. No evidence for diastolic dysfunction. No regional wall motion abnormalities noted. Right Ventricle Normal right ventricle. Normal systolic function. Atria Normal left atrium. Normal right atrium. No doppler evidence for ASD. Mitral Valve There is no mitral valve stenosis. Trivial mitral valve insufficiency. Tricuspid Valve There is no tricuspid stenosis. No tricuspid valve insufficiency. Unable to estimate RV systolic pressure due to inadequate jet, pulmonary artery pressure probably normal. Aortic Valve Trisinus/trileaflet aortic valve. Aortic sclerosis, no stenosis. There is no aortic stenosis. No aortic valve insufficiency. Pulmonic Valve There is no pulmonic valvular stenosis. No pulmonic valve insufficiency. Great Vessels Normal aortic root. Pericardium/Pleural No pericardial effusion. Medication 22 gauge I.V. with prn adaptor inserted into right arm. Diluted definity 3.5ml given slow IV push to enhance endocardial definition. MMode/2D Measurements & Calculations LVIDd: 5.2 cm IVSd: 1.1 cm Ao root diam: 2.6 cm LVIDs: 3.1 cm LVPWd: 1.1 cm RVDd: 2.9 cm FS: 39.5 % LAV(MOD-bp): 50.5 ml LA A4 area: 17.5 cm2 LA dimension(2D): 4.2 cm LAV(MOD-bp) Indexed: 28.2 ml/m2 LAV(MOD-sp2): 54.1 ml LAV(MOD-sp4): 46.2 ml RA A4 area: 12.9 cm2 Time Measurements MV dec time: 0.18 sec Doppler Measurements & Calculations MV E max kyaw: 83.7 cm/sec Lat Peak E' Kyaw: 8.2 cm/sec Med Peak E' Kyaw: 4.8 cm/sec MV A max kyaw: 97.5 cm/sec E/E' lat: 10.2 E/E' med: 17.5 MV E/A: 0.86 Ao V2 max: 126.1 cm/sec LV V1 max: 80.3 cm/sec PA V2 max: 73.6 cm/sec Ao max P.4 mmHg LV V1 max P.6 mmHg Interpretation Summary The estimated ejection fraction is 55 %. No evidence for diastolic dysfunction. Trivial mitral valve insufficiency. Aortic sclerosis, no stenosis. The study was technically difficult. Contrast injection was performed. Ordering Physician: Gomez Noel Referring Physician: Siena Warren Performed By: Jeannie Ybarra, MARIAH, RVT
== END ==
PROVIDERS: PCP Internal Medicine; Referring Provider Specialist; Visit Provider Specialist
DX: I25.10 Atherosclerotic heart disease of native coronary artery without angina pectoris (principal); Z95.1 Presence of aortocoronary bypass graft; I25.5 Ischemic cardiomyopathy; I10 Essential (primary) hypertension
CPT/HCPCS: 93306; Q9957; A4216; C8929

== ENCOUNTER 2020-06-04 15:15 | Outpatient (RCR) | payer MEDICARE, OTHER, SELFPAY ==
[2020-03-16 11:00] VITALS: BMI 30.3
[2020-03-16 11:05] VITALS: BMI 30.3
--- NOTE | 2020-05-18 06:36 | CR.ITP_ITS ---
Diagnosis - General Information Personal Learning Style:: Audio/Visual, Written Barriers to Learning: Vision Impairment Stage of change r/t lifestyle modifications:: Action Gave educational material for:: Treating Heart Disease, Emotions & Heart Disease, Stress Management & Relaxation, Sleep Disorders & Heart Disease, How The Heart Works, What it means to have Heart Disease, How Coronary Artery Disease is Diagnosed, Heart Procedures, What Heart Medications Do, Risk Factors & Modifications, Living an Active Life, Nutrition - Education/Goals Individual Counseling: Initial Assessment: Abnormal Cholesterol Levels, High Blood Pressure, Overweight/Obesity Cardiac Rehabilitation Goals: 1. Maintain the individual as the primary focus of care. 2. To improve the patient's quality of life. 3. Identification of cardiac risk factors and provide cardiac risk factor management. 4. Enhance the psychosocial status of the patient. 5. Reconditioning enough to allow the patient to resume customary activities. 6. Control symptoms of cardiac disease Personal Goals: Initial Assessment: Improve energy level, Get back to work, or to resume activities faster, Improve muscle strength and endurance, Control risk factors (learn risk factor modification) Scale for measuring improvement of personal goals: Enter appropriate number in Comments. 2 = Unchanged. 3 = Slightly Better. 4 = Moderate Improvement. 5 = Met my Goal - Diagnosis & Disease Process Outcomes/Goals: Pt IDs own risk factors & lifestyle modifications by Session 10, Verbalizes symptoms of angina & response by session 3., Pt independently manages Plan/Interventions: Assist Pt to ID & engage in lifestyle modification to reduce CVD risk, Instruct on individual risk factors, Review symptoms of angina & emergency actions, Review secondary diagnosis & identify educational needs. 30 day Reassessments:: Progressing 30 day Reassessments:: Progressing - Safety Referral to Physical Therapy: No Referral to [facility] Case Management: No Fall Risk Assessed:: Yes Assistive Devices:: None Exercise - 60-day Assessment - Visit Date of Eval: 05/18/20 Session #:: 23 - Physician Prescribed Exercise Modalities: Treadmill, Airdyne, NuStep, SciFit Frequency: 3x/week for 12 weeks [36 sessions] Intensity: 60-80% of age predicted maximum heart rate reserve Current METSs:: 3.5 Target Heart Rate:: 90-116 Current RPE:: 11-12 Maximum Excercise HR:: 97 Resting Blood Pressure: 140/70 Maximum Exercise Blood Pressure: 146/62 EKG Type: NSR with rare PACs - Outcomes & Goals Goals:: Verbalizes understanding of THR, RPE & goal METS by session 6, Documents in home exercise log/reports 30 min aerobic 5 day/wk by DC, Demonstrates accurate pulse taking by DC - Intervention & Plan Exercise Program Goals: Instruct on personal THR & RPE, Instruct on MET level & personal MET goal, Show patient to take own pulse /validate performance until accurate, Instruct on home exercise - 30-day Reassessments 30 day Reassessments:: Progressing - Physical Activity Home Exercise Physical Activity - Home Exercise: Safe Exercise, Warm-up, Self-monitoring, Cool-Down, Home Exercise > 30 min Daily, Sitting Time <3 hours/daily - Outcomes & Goals Outcomes/Goals: Demonstrates correct Warm-up/exercise Cool-Down (S3) if = 2.5 METs, Verbalizes symptoms of exercise intolerance by Session 3 (S3), Demonstrate safe equipment use (S3) & follows exercise prescrition (6) - Intervention & Plan Plan/Intervention: Instruct warm-up & cool-down if exercising at > 2 METs, Instruct on symptoms of exercise intolerance & actions to take, Instruct & monitor on saf, Assess intial functional capacity & safety risk - 30-day Reassessments 30 day Reassessments:: Progressing Nutrition - 60-Day Assessment - Program Goals Nutrition Program Goals: LDL <100 optimal. 100 - 129 Near optimal. 130 - 159 B orderline High. 160 - 189 High. Total Cholesterol <200 desirable. 200 - 239 Borderline High. >/= 240 High. HDL < 40 Low >/=60 High. Triglycerides <150 desirable. <199 optimal. VlDL 5 - 40. HgbA1C <7%. BMI <25 Patient has diagnosis of Hyperlipidemia (ICD E78)?: Yes - Visit Date of Assessment:: 05/18/20 Session #:: 23 - Cholesterol/Lipids Determine presence & major risk factors that modify LDL goal: Hypertension or hypertensive medication, Low HDL cholesterol <40 mg/dL*, Age men > 45 years; women >/= 55 years Outcomes/Goals: Pt IDs own risk factors & lifestyle modifications by Session 10, Verbalizes symptoms of angina & response by session 3., Pt independently manages Intervention/Plan: Instruct on personal lipid levels & lipid goals/NCEP guidelines, Instruct on cholesterol Referral to dietitian:: No - Seen Nutritional Services on 04/14/2020 30-day Reassessments:: Met - Diabetes (Other Core Measures) Diabetes Type: Not Applicable - Weight Mgt (Other Care) Not Applicable: No Height: 5 ft 2 in Weight:: 170 lb 8 oz BMI: 31.1 Diagnosis Overweight/Obesity BMI> 30% ICD-10 E66: Yes Diagnosis High BMI/Morbid Obesity BMI> 35% ICD-10 Z68: No Outcomes/Goals: Pt sets, maintains & shows weight loss goal & trend during rehab Intervention/Plan: Instruct on ideal BMI & set weight loss goal w/patient, Ass ist pt to ID & incorporate diet changes for weight loss by S9, Encourage goal of using 250-300dcal per session for weight loss 30 day Reassessments:: Progressing - Healthy Eating Habits Will attend diet classes:: Yes Outcomes/Goals:: Consume diet rich in vegs,fruits,whole grain/high fiber,fish,lean meat, Limit sat/trans fats,cholesterol & added salts & sugars Intervention/Plan:: Assess current eating habits 30-day Reassessments:: Progressing - Education Gave educational materials for:: Healthy eating Medical- 60-Day Assessment - Visit Date of Eval: 05/18/20 Session #:: 23 - Medication Compliance Preventative Medication(s):: Aspirin, Clopidogrel/P2Y12 inhibit, Statin/lipid, Beta shravan H/O mental health issues: depression, anxiety, or addiction?: No Doesn?t believe in the benefits of treatment?: No Believes medications are unnecessary or harmful?: No Has a concern about medication side effects?: No Expresses concern over the cost of medications?: No Outcomes/Goals: Verbalizes medications,desired effect & common side effects @ DC, Pt self-reports following medication regimen, Keeps card in wallet w/medications listed by DC Interventions/plans: Instruct on medication effects & side effects, Review medication list w/patient every two weeks, Instruct importance of taking meds as ordered & assist problem solving 30-day Reassessments:: Met - Tobacco Use Tobacco Use: Non-smoker - Hypertension Hypertension Diagnosis:: Hypertension ICD-10 I10 Resting Blood Pressure:: 140/70 - uncontrolled [place] [employer] Hypertension Guidelines: [place] [employer] Hypertension Guidelines. Normal BP Less than 120/80. Elevated BP 120/80. Hypertension Stage 1: BP 130-139/80-89. Hypertesnion Stage 2: BP 140 or higher/90 or higher. Hypertension Crisis: BP higher than 180/120 Peak Exercise Blood Pressure:: 146/62 Outcomes/Goals: Able to verbalize/achieve optimal blood pressure <130/80, Inc orporates diet changes & exercise for blood pressure control by DC Interventions/plan: Instruct on optimal blood pressure, hypertension & medications, Instruct on effects of sodium, alcohol, stress, exercise &hypertension 30 day Reassessments:: Progressing - Tobacco Cessation Referral Smoking Cessation Referral:: No Individual Education/Counseling:: No Education Schedule Given:: Yes Psychosocial - 60-Day Assess - VIsit Date of Eval: 05/18/20 Session #:: 23 Not Applicable: Yes History of previous Mental disease:: No - Target Goals Target Goals: Assess presence or absence of depression. Using a valid screening tool, maximizes coping skills. Positive support system - Psychosocial Test Tool Used:: Yanique Kerr QOL Cardiac, PHQ-9 Questionnaire phq-9 Severity: Severity. 1-4 Minimal Depression. 5-9 Mild Depression. 10-14 Moderate Depression. 15-19 Moderately Sever Depression. 20-27 Severe Depression. Rule: - Referral to Behavioral Health PS - Interventions: Yes Attend Stress Management Classes, No Referral to Behavioral Health if PHQ-9 score >9:, No Referral to [facility], No Referral to Physician if PHQ-9 if score is 5-9: - Outcomes/Goals: See list Psychosocial Outcomes/Goals:: ID's personal stressors & 2 strategies to manage stress by discharge - Intervention/Plan: See List Interventions/Plan:: Assess stressors,coping strategies & signs of derpression on admission, Instruct/assist pt to develop coping & personal stress Mgt strategies, Instruct patient to recognize signs & symptoms of depression, Instruct patient to recog - 30-day Reassessments: 30 day Reassessments:: Met Patient Health Questionnaire 60-Day Re-eval Assessment 1. Little interest or pleasure in doing things: Several days 2. Feeling down, depressed, or hopeless: Not at all 3. Trouble falling or staying asleep, or sleeping too much: Several days 4. Feeling tired or having little energy: Several days 5. Poor appetite or overeating: Not at all 6. Feeling bad about yourself -- or that you are a failure or have let yourself or your family down: Not at all 7. Trouble concentrating on things, such as reading the newspaper or watching television: Not at all 8. Moving or speaking so slowly that other people could have noticed. Or the opposite - being so fidgety or restless that you have been moving around a lot more than usual: Not at all 9. Thoughts that you would be better off , or of hurting yourself in some way: Not at all How difficult have these problems made it for you to do your work, take care of things at home, or get along with other people?: Not difficult at all Total Score: 3 Self-Efficacy 60-Day Re-eval Assessment We would like to know how confident you are in doing certain activities. Please select your confidence level for:: Select your confidence level for the following using the scale 1-10 where 1 is not at all confident and 10 is totally confident. Your score is the average of all 6 responses. Fatigue: How confident are you that you can keep the fatigue caused by your disease from interfering with the things you want to do? Select Number: 8 Physical Discomfort or Pain: How confident are you that you can keep the physical discomfort or pain of your disease from interfering with the things you want to do? Select Number: 7 Emotional Distress: How confident are you that you can keep the emotional distress caused by your disease from interfering with the things you want to do? Select Number: 6 Other Symptoms or Health Problems: How confident are you that you can keep other symptoms or health problems from interfering with the things you want to do? Select Number: 9 Different Tasks and Activities: How confident are you that you can do the different tasks and activities needed to manage your health condition so as to reduce your need to see a doctor? Select Number: 10 Medication: How confident are you that you can do things other than just taking medication to reduce how much your illness affects your everyday life? Select Number: 8 Total Score:: 8
[2020-05-18 06:45] VITALS: BP 140/70; BP 146/62; BMI 31.1
== END 2020-06-04 23:59 ==
LOC: CR 15:15
PROVIDERS: PCP Internal Medicine; Referring Provider Specialist; Visit Provider Specialist
DX: I25.10 Atherosclerotic heart disease of native coronary artery without angina pectoris (principal); I25.5 Ischemic cardiomyopathy; Z95.1 Presence of aortocoronary bypass graft
CPT/HCPCS: 93798

== ENCOUNTER 2020-06-11 15:15 | Outpatient (RCR) | payer MEDICARE, OTHER, SELFPAY ==
[2020-03-16 11:00] VITALS: BMI 30.3
[2020-05-18 06:45] VITALS: BMI 31.1
[2020-06-05 00:29] VITALS: BP 140/70; BP 146/62
== END 2020-07-05 23:59 ==
LOC: CR 15:15
PROVIDERS: PCP Internal Medicine; Referring Provider Specialist; Visit Provider Specialist
DX: I25.10 Atherosclerotic heart disease of native coronary artery without angina pectoris (principal); I25.5 Ischemic cardiomyopathy; Z95.1 Presence of aortocoronary bypass graft
CPT/HCPCS: 93798

== ENCOUNTER 2020-07-05 14:00 | Outpatient (RCR) | payer MEDICARE, OTHER, SELFPAY ==
[2020-03-16 11:00] VITALS: BMI 30.3
[2020-05-18 06:45] VITALS: BMI 31.1
== END 2020-07-05 23:59 ==
LOC: DC 14:00
PROVIDERS: PCP Internal Medicine; Visit Provider Specialist
DX: Z71.3 Dietary counseling and surveillance (principal); I10 Essential (primary) hypertension; E11.9 Type 2 diabetes mellitus without complications; E78.5 Hyperlipidemia, unspecified
CPT/HCPCS: 97803; G0108

== ENCOUNTER 2020-07-21 14:51 | Outpatient (RCR) | payer MEDICARE, OTHER, SELFPAY ==
[2020-05-18 06:45] VITALS: BMI 31.1
[2020-06-28 14:00] VITALS: BMI 31.2
== END 2020-08-04 23:59 ==
LOC: DC 14:51
PROVIDERS: PCP Internal Medicine; Visit Provider Specialist
DX: Z71.3 Dietary counseling and surveillance (principal); I10 Essential (primary) hypertension; E11.9 Type 2 diabetes mellitus without complications; E78.5 Hyperlipidemia, unspecified
CPT/HCPCS: G0108

== ENCOUNTER 2020-08-23 16:51 | Outpatient (RCR) | payer MEDICARE, OTHER, SELFPAY ==
[2020-05-18 06:45] VITALS: BMI 31.1
[2020-06-28 14:00] VITALS: BMI 31.2
== END 2020-09-04 23:59 ==
LOC: DC 16:51
PROVIDERS: PCP Internal Medicine; Visit Provider Specialist
DX: Z71.3 Dietary counseling and surveillance (principal); I10 Essential (primary) hypertension; E11.9 Type 2 diabetes mellitus without complications; E78.5 Hyperlipidemia, unspecified
CPT/HCPCS: 97803

== ENCOUNTER 2020-09-09 14:40 | Outpatient (RCR) | payer MEDICARE, OTHER, SELFPAY ==
[2020-05-18 06:45] VITALS: BMI 31.1
[2020-06-28 14:00] VITALS: BMI 31.2
== END 2020-10-04 23:59 ==
LOC: DC 14:40
PROVIDERS: PCP Internal Medicine; Visit Provider Specialist
DX: Z71.3 Dietary counseling and surveillance (principal); I10 Essential (primary) hypertension; E11.9 Type 2 diabetes mellitus without complications; E78.5 Hyperlipidemia, unspecified
CPT/HCPCS: G0109

== ENCOUNTER 2020-10-07 09:30 | Outpatient (RCR) | payer MEDICARE, OTHER, SELFPAY ==
[2020-05-18 06:45] VITALS: BMI 31.1
[2020-06-28 14:00] VITALS: BMI 31.2
== END 2020-11-04 23:59 ==
LOC: DC 09:30
PROVIDERS: PCP Internal Medicine; Visit Provider Specialist
DX: Z71.3 Dietary counseling and surveillance (principal); I10 Essential (primary) hypertension; E11.9 Type 2 diabetes mellitus without complications; E78.5 Hyperlipidemia, unspecified
CPT/HCPCS: G0109

== ENCOUNTER 2020-11-18 10:49 | Outpatient (RCR) | payer MEDICARE, OTHER, SELFPAY ==
[2020-05-18 06:45] VITALS: BMI 31.1
[2020-06-28 14:00] VITALS: BMI 31.2
== END 2020-12-05 23:59 ==
LOC: DC 10:49
PROVIDERS: PCP Internal Medicine; Visit Provider Specialist
DX: Z71.3 Dietary counseling and surveillance (principal); E11.9 Type 2 diabetes mellitus without complications; E78.5 Hyperlipidemia, unspecified; I10 Essential (primary) hypertension
CPT/HCPCS: G0109

== ENCOUNTER 2020-11-26 14:43 | Outpatient (RCR) | payer MEDICARE, OTHER, SELFPAY ==
[2020-05-18 06:45] VITALS: BMI 31.1
[2020-06-28 14:00] VITALS: BMI 31.2
== END 2020-11-26 23:59 ==
LOC: IMMUN 14:43
PROVIDERS: PCP Internal Medicine; Visit Provider Family Medicine
DX: Z23 Encounter for immunization (principal)
CPT/HCPCS: 0011A; 0012A; 91301

== ENCOUNTER 2020-12-09 14:47 | Outpatient (RCR) | payer MEDICARE, OTHER, SELFPAY ==
[2020-05-18 06:45] VITALS: BMI 31.1
[2020-06-28 14:00] VITALS: BMI 31.2
== END 2020-12-09 23:59 | disposition home or self-care (01) ==
LOC: DC 14:47
PROVIDERS: PCP Internal Medicine; Visit Provider Specialist
DX: Z71.3 Dietary counseling and surveillance (principal); E11.9 Type 2 diabetes mellitus without complications; E78.5 Hyperlipidemia, unspecified; I10 Essential (primary) hypertension
CPT/HCPCS: G0109

== ENCOUNTER → 2022-06-28 | Outpatient (CLI) | payer MEDICARE, OTHER, SELFPAY ==
[2020-05-18 06:45] VITALS: BMI 31.1
--- NOTE | 2022-06-28 | CYSPIN_PTH ---
PATIENT: CONCHA WOODWARD LOC: [facility] U#:[id number] AGE/SX: 87/F ROOM: RE06/28/[address]: Dr. Cornelia Mora MD : 1935 BED: DIS: 06/28/2022 SPEC #: [id number] RECD: 06/29/22 06:36 STATUS: ANTONELLA WALSH #: [id number] CRYSTAL: 06/28/22 00:[address]: Cornelia Mora DEPT: CYTOLOGY RECD BY: Altagracia Zabala ENTERED: 06/29/22 06:36 SP TYPE: CYSPIN FL OTHR DR: Dr. Siena Warren MD Tissues: Urine Procedures: Pap Stain (control) Special Stain Group II Cytospin Fluid HEADER OPERATION: Not noted PRE-OP DIAGNOSIS: Hematuria TISSUE SUBMITTED: Urine for cytology DIAGNOSIS CYTOLOGY Urine for cytology (cytospin): Negative for malignant cells. See comment. AM:lenora 06/29/2022 COMMENT The specimen primarily contains benign squamous epithelial cells. Clinical correlation is suggested. CYTOLOGY STUDY Slides are reviewed. CYTOLOGY GROSS Received is 15 ml of gold-yellow cloudy fluid labeled with the patient's name and and designated per the requisition as urine. Submitted for cytology preparation. / lenora 06/28/2022 TC:5 CPT: 70522
[2022-06-28 13:26] LABS: Cytology, Body Fluid / CSF SEE PATHOLOGY REPORT
== END | disposition home or self-care (01) ==
LOC: LABSPEC 06-29 06:36
PROVIDERS: PCP Internal Medicine; Visit Provider Urology
DX: R31.9 Hematuria, unspecified (principal)
CPT/HCPCS: 88108; 88313

== ENCOUNTER → 2022-07-04 | Outpatient (CLI) | payer MEDICARE, OTHER, SELFPAY ==
[2020-05-18 06:45] VITALS: BMI 31.1
--- NOTE | 2022-07-04 08:24 | US_ITS ---
STUDY: RENAL ULTRASOUND - COMPLETE REASON FOR EXAM: Female, 87 years old. HEAMTURIA TECHNIQUE: Ultrasound evaluation of the kidneys was performed with real-time and static peters-scale imaging. COMPARISON: None. FINDINGS: RIGHT KIDNEY: Normal location of the right kidney, which is normal in size. The right kidney measures 10.9 x 4.9 x 4.7 cm. There is a normal cortex of the right kidney. The renal cortex measures 1.5 cm. There is no right renal mass or cyst. There are no right renal calculi. There is no right hydronephrosis. DISTAL RIGHT URETER: There is non-visualization of the distal right ureter. There is no demonstrated right ureterovesical junction calculus. Right ureteral jet not visualized. LEFT KIDNEY: Normal location of the left kidney, which is normal in size. The left kidney measures 8.8 x 3.6 x 3.9 cm. There is a normal cortex of the left kidney. The renal cortex measures 1.7 cm. There is a left midpole hypoechoic lesion 2.1 x 1.6 x 1.6 cm. This could represent cyst with technical artifact or hemorrhagic cyst, hypoechoic mass cannot be excluded. There are no left renal calculi. There is no left hydronephrosis. DISTAL LEFT URETER: There is non-visualization of the distal left ureter. There is no demonstrated left ureterovesical junction calculus. Left ureteral jet not visualized. Aorta and IVC not visualized. BLADDER: The distended urinary bladder has a volume of 94.5 ml. Post void imaging of the bladder was not obtained. There is no demonstrated mass within the urinary bladder. There are no demonstrated bladder calculi. US/Kidney and Bladder IMPRESSION: Left renal 2.1 x 1.6 x 1.6 cm cyst with technical artifact or hemorrhagic cyst. Cannot exclude hypoechoic mass. No evidence of hydronephrosis. Urinary bladder is normal in appearance. Electronically Signed: Americo Faith MD, VICTORIANO at 17:51 EDT ,
--- NOTE | 2022-07-04 08:24 | US_ITS ---
STUDY: ULTRASOUND TRANSVAGINAL CLINICAL: Female, 87 years old. uti TECHNIQUE: Transvaginal COMPARISON: None. FINDINGS: Normal uterine size measuring 4.3 x 3.2 x 1.9 cm in maximal craniocaudal dimension. Consistent with normal involutional change given the patient''s age. There is a 1.2 x 1.2 x 1.4 cm calcified uterine fibroid. There is no evidence of nabothian cysts. There is no evidence of free fluid. Urinary bladder volume at time of examination is 30.68 cc. Endometrial thickness is 6 mm which in a postmenopausal patient is equivocal. This could represent a normal finding, or endometrial hyperplasia. Endometrial carcinoma cannot be excluded. Normal endoThere are no endometrial masses, and there is no fluid in the endometrial cavity. Normal uterine cervix. The ovaries are not visualized. There is no free fluid in the pelvis. Polycystic ovary disease: No. US/Transvaginal Non- IMPRESSION: Endometrial thickness 0.6 cm. This may be normal but it is of borderline thickness. Rule out endometrial hyperplasia versus endometrial carcinoma. Calcified fibroid 1.2 x 1.2 x 1.4 cm. Electronically Signed: Americo Faith MD, VICTORIANO at 17:45 EDT ,
== END | disposition home or self-care (01) ==
LOC: US 15:52
PROVIDERS: PCP Internal Medicine; Referring Provider Urology; Visit Provider Urology
DX: N39.0 Urinary tract infection, site not specified (principal); N93.9 Abnormal uterine and vaginal bleeding, unspecified; R31.9 Hematuria, unspecified
CPT/HCPCS: 76770; 76830

== ENCOUNTER → 2022-07-13 | Outpatient (CLI) | payer MEDICARE, OTHER, SELFPAY ==
[2020-05-18 06:45] VITALS: BMI 31.1
--- NOTE | 2022-07-13 | EMB_PTH ---
PATIENT: CONCHA WOODWARD LOC: [facility] U#:[id number] AGE/SX: 87/F ROOM: RE07/13/[address]: Dr. Latha Bar MD : 1935 BED: DIS: 07/13/2022 SPEC #: [id number] RECD: 07/13/22 16:40 STATUS: ANTONELLA ANDERSErich #: [id number] CRYSTAL: 07/13/22 00:[address]: Latha Bar DEPT: SURGICAL PATHOLOGY RECD BY: Altagracia Zabala ENTERED: 07/14/22 08:08 SP TYPE: ENDOM BX/C TASHA DR: Dr. Siena Warren MD Tissues: Endometrium, NOS Procedures: Surgery Specimen Level IV HEADER OPERATION: Endometrial biopsy PRE-OP DIAGNOSIS: Postmenopausal bleeding TISSUE SUBMITTED: Endometrial biopsy MICROSCOPIC DIAGNOSIS Endometrial biopsy: Consistent with cystic atrophic endometrium. See comment. MERVIN:lenora 07/17/2022 COMMENT Clinical correlation and appropriate follow up are necessary. MICROSCOPIC DESCRIPTION Slides are reviewed. GROSS DESCRIPTION Received is one container labeled with the patient's name and not further designated. The specimen consists of multiple irregular fragments of schulz soft tissue that in aggregate measure 1 x 0.2 x 0.1 cm. The specimen is totally submitted in one cassette. / SJ:rg 07/14/2022 TC:5 [facility]: [id number]
== END | disposition home or self-care (01) ==
PROVIDERS: PCP Internal Medicine; Visit Provider Obstetrics & Gynecology
DX: N95.0 Postmenopausal bleeding (principal); N85.8 Other specified noninflammatory disorders of uterus; R30.0 Dysuria
CPT/HCPCS: 87086; 87088; 88305

== ENCOUNTER → 2022-07-24 | Outpatient (CLI) | payer MEDICARE, OTHER, SELFPAY ==
[2020-05-18 06:45] VITALS: BMI 31.1
--- NOTE | 2022-07-24 10:56 | CT_ITS ---
EXAM: CT ABDOMEN AND PELVIS WITHOUT AND WITH INTRAVENOUS CONTRAST CLINICAL INDICATION: Left renal hemorrhagic cyst versus mass. TECHNIQUE: Helically acquired images were obtained of the abdomen and pelvis without and with intravenous contrast. This CT exam was performed using one or more of the following dose reduction techniques: automated exposure control, adjustment of the mA and/or kV according to patient size, and/or use of iterative reconstruction technique. This report was created using [employer] report generation technology. CONTRAST: IV 100mL Isovue-300 RADIATION DOSE: CTDIvol = 22.91 mGy, DLP = 3423.99 mGy-cm COMPARISON: None. FINDINGS: LOWER THORAX: Small hiatal hernia. Lung bases are clear. No cardiomegaly. No significant pericardial effusion. ABDOMEN: LIVER: Unremarkable. Homogeneous. No focal mass. GALLBLADDER AND BILE DUCTS: Unremarkable. No calcified gallstones. No gallbladder distention or wall edema. No intra- or extrahepatic biliary ductal dilation. PANCREAS: Unremarkable. No focal cystic or solid mass. SPLEEN: Unremarkable. Normal size without focal cystic or solid mass. ADRENALS: Unremarkable. No nodules. KIDNEYS AND URETERS: Multifocal atrophy of the left kidney giving a lobulated contour but no enhancing cyst or nonenhancing cysts. No suspicious solid mass. Multifocal parenchymal loss in the right renal parenchyma with a less lobulated contour than the left kidney. No cyst or mass in the right kidney. No hydronephrosis or stones in both kidneys. Intrarenal vascular calcification of the right kidney. STOMACH AND BOWEL: Multiple diverticula sigmoid colon without diverticulitis. No stomach or bowel distention. PELVIS: APPENDIX: Normal. BLADDER: Unremarkable. REPRODUCTIVE: Unremarkable as visualized. No mass. ABDOMEN and PELVIS: INTRAPERITONEAL SPACE: Unremarkable. No ascites or other fluid collection. No free air. BONES/JOINTS: Pronounced central canal stenosis at L4-L5 disc space level with an AP canal diameter of 4.7 mm. Moderate bilateral L4-L5 degenerative facet arthropathy with posterior ligamenta flava hypertrophy. No suspicious lytic or blastic abnormality. SOFT TISSUES: Unremarkable. No discrete abdominal or pelvic wall hernia. VASCULATURE: Extensive calcifications along the infrarenal abdominal aorta and both proximal renal artery stent. High-grade stenosis of both renal arteries due to excessive calcified plaques. 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 Abdominal aorta is non-dilated. LYMPH NODES: Unremarkable. No enlarged lymph nodes. CT/CT Abd/Pelvis W/WO Contrast IMPRESSION: 1. Multifocal parenchymal loss in both kidneys, left more than right giving a lobulated contour but no CT evidence of cyst or mass in both kidneys particularly the left kidney. 2. 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 3. 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 4. Multiple sigmoid diverticulosis without diverticulitis. 5. Pronounced central canal stenosis at L4-L5 disc space level due to developmentally short pedicles, posterior ligamenta flava hypertrophy, mild dorsal epidural lipomatosis and moderate bilateral L4-L5 degenerative facet arthropathy. Electronically Signed: Yfn Feliciano MD at 12:51 EDT ,
[2022-07-24 11:25] LABS: CREATININE FINGERSTICK 1.3 mg/dL (0.55-1.02)
== END | disposition home or self-care (01) ==
LOC: CT 10:54
PROVIDERS: PCP Internal Medicine; Referring Provider Urology; Visit Provider Urology
DX: R93.422 Abnormal radiologic findings on diagnostic imaging of left kidney (principal)
CPT/HCPCS: 74178; Q9967

== ENCOUNTER 2022-10-03 13:54 | Emergency (ER) | payer MEDICARE, OTHER, SELFPAY ==
[2020-05-18 06:45] VITALS: BMI 31.1
[2022-10-03 13:54] VITALS: BP 170/96; PULSE 74; RESP 16; TEMP 36.4; O2SAT 97; BMI 30.1
--- NOTE | 2022-10-03 14:13 | EX.ED.UPPERE ---
HPI History of Present Illness Chief Complaint: Upper Extremity Injury Informant: patient and family Narrative Narrative: Patient had a mechanical trip and fall while walking. She was in an area she was not familiar with. Caught her foot on the curb fell down onto her outstretched hands. Never hit her head. She has relief pain at the mid to proximal left humerus. She was able to get up walk it in the car and then walked from the car all the way into the emergency department. The only area that hurts is the left arm. She is right-hand dominant. Motion makes it worse and keeping it still makes it better. 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 Benign hypertension Benign paroxysmal positional vertigo Bilateral renal cysts Carotid stenosis, right Chronic renal failure, stage 3 (moderate) Constipation due to pain medication Decubitus ulcer, stage II Diabetes Diverticulosis Gout Hypertension Internal hemorrhoids Intracranial meningioma Ischemic cardiomyopathy Mild atrial enlargement, left Nonrheumatic mitral valve regurgitation Paroxysmal atrial fibrillation with RVR Physical debility STEMI (ST elevation myocardial infarction) Thrombocytopenia Type II diabetes mellitus Home Medications allopurinol 100 mg tablet 100 mg PO DAILYCM gout 04/28/14 [History Last Taken 01/03/20] aspirin 81 mg chewable tablet 81 mg PO DAILY heart 01/17/20 [History Last Taken Unknown] calcium carbonate-vitamin D3 600 mg-125 unit tablet 1 ea PO DAILY bones 01/17/20 [History Last Taken Unknown] clopidogrel 75 mg tablet 75 mg PO DAILY stroke prevention 01/17/20 [History Last Taken Unknown] metoprolol succinate 100 mg tablet,extended release 24 hr 100 mg PO DAILY bp 01/17/20 [History Last Taken Unknown] atorvastatin 40 mg tablet 20 mg PO QHS cholesterol 03/02/20 [History Last Taken Unknown] amlodipine 5 mg tablet 5 mg PO DAILY 03/03/20 [History Last Taken Unknown] insulin aspart U-100 100 unit/mL (3 mL) subcutaneous pen 7 unit subcut QAC dm 06/28/20 [History Last Taken Unknown] insulin glargine 100 unit/mL (3 mL) subcutaneous pen 9 unit subcut DAILY 06/28/20 [History Last Taken Unknown] propylene glycol 0.6 % eye drops (Systane Balance) 1 drp ophthalmic (eye) DAILY PRN Dry Eyes 06/28/20 [History Last Taken Unknown] ondansetron 4 mg disintegrating tablet 4 mg PO Q8H PRN nausea and vomiting #10 tabs 10/03/22 [Rx Last Taken Unknown] oxycodone-acetaminophen 5 mg-325 mg tablet (Percocet) 1 tab PO Q6H PRN pain 5 days #20 tabs 10/03/22 [Rx Last Taken Unknown] Allergy/AdvReac Type Severity Reaction Status Date / Time codeine AdvReac Nausea/Vom/ Verified 10/03/22 13:56 Diarrhea Family History Aunt Breast cancer Mother Heart disease Father Heart disease Surgical History H/O angioplasty History of cholecystectomy History of coronary artery bypass graft History of left heart catheterization tubal Social History number of children: 2 current occupational status: retired Smoking Status: Former smoker alcohol intake: never substance use type: does not use diet: diabetic caffeine: Yes Type: coffee Number of servings: 1 seatbelt use: always do you feel safe at home: Yes additional social history: 2 children adopted ROS ROS ED Constitutional Constitutional ED: Denies fever(s) Eyes Eyes: Denies change in vision Cardiovascular Cardiovascular: Denies chest pain or palpitations Respiratory/Chest Respiratory/Chest: Denies cough or dyspnea Gastrointestinal Gastrointestinal: Denies nausea or vomiting Musculoskeletal Musculoskeletal: Reports other Details: Left arm pain see history of present illness. ; Denies neck pain Integumentary Denies Abrasions Neurologic Neurologic: Denies headache(s) Hematologic/Lymphatic Hematologic/Lymphatic: Reports easy bleeding and easy bruising Allergic/Immunologic Allergic/Immunologic ED: Denies urticaria EXAM Physical Exam Const Vital Signs: 10/03/22 13:54 Temperature 97.6 F L Temperature Source Temporal Pulse Rate 74 Respiratory Rate 16 Blood Pressure 170/96 H Blood Pressure Mean 120 Pulse Ox 97 Oxygen Delivery Method Room Air Positive well nourished and well developed General Appearance ED: well developed and NAD HEENT Reports moist mucous membranes HEENT Narrative: No sign of trauma anywhere on her head or face. normocephalic and atraumatic Eyes EOMs intact bilaterally Neck full ROM General: Negative for tenderness Resp normal respiratory effort Cardio regular rate GI non-tender and non-distended Back/Spine no CVA tenderness Extremity Extremity Narrative: She has pain and tenderness to the mid and proximal left humerus. No tenderness anywhere else on her extremities. Neuro oriented x3 Psych mental status grossly normal Skin Rashes: no rashes Trauma: no lacerations or abrasions [facility] MDM Narrative Medical decision making narrative: Three-view x-ray of the left shoulder show proximal humeral and impacted fracture. There is some angulation. I discussed this with the patient. No neurologic symptoms. She will be placed in a sling and swath. I explained that she will need repeat x-rays to make sure positioning stays okay. We will write meds for pain. These can lead to long-term pain and stiffness and early arthritis. Radiography Diagnostic Testing: See MDM Discharge Plan Triage Chief Complaint: Upper Extremity Injury ED Provider: Carlos Navarro Dx/Rx/DC Orders Clinical Impression: Closed fracture of left proximal humerus, Fall from slip, trip, or stumble Instructions: ED Fracture, Shoulder Prescriptions: New oxycodone-acetaminophen [Percocet] 5-325 mg tablet 1 tab PO Q6H PRN (Reason: pain) 5 Days Qty: 20 0RF ondansetron 4 mg tablet,disintegrating 4 mg PO Q8H PRN (Reason: nausea and vomiting) Qty: 10 0RF No Action insulin glargine 100 unit/mL (3 mL) insulin pen 9 unit subcut DAILY Systane Balance 0.6 % drops 1 drp OPHTHALMIC DAILY PRN (Reason: Dry Eyes) amlodipine 5 mg tablet 5 mg PO DAILY allopurinol 100 MG tablet 100 mg PO DAILYCM Label Comments: GOUT metoprolol succinate 100 MG tablet extended release 24 hr 100 mg PO DAILY aspirin 81 MG tablet,chewable 81 mg PO DAILY calcium carbonate-vitamin D3 1 EACH tablet 1 ea PO DAILY clopidogrel 75 MG tablet 75 mg PO DAILY Label Comments: BLOOD THINNER, PREVENT BLOOD CLOTS atorvastatin 40 mg tablet 20 mg PO QHS insulin aspart U-100 100 unit/mL (3 mL) insulin pen 7 unit subcut QAC Rx Instructions: 7 units AM, 6 units, 7 units dinner Primary Care Provider: Siena Warren Referrals: Westley Watts DO [Med Staff - Active Staff] - 3-5 Days Siena Warren MD [Primary Care Provider] - Disposition Disposition: Home, Self Care
[2022-10-03] MEDS: Ondansetron ODT 4 MG Tablet PO (14:23)
[2022-10-03] MEDS: Morphine 4 MG/ML Syringe IM ×2 (14:23→15:19)
--- NOTE | 2022-10-03 15:50 | RAD_ITS ---
STUDY: X-RAY - LEFT SHOULDER REASON FOR EXAM: Female, 87 years old. Trauma TECHNIQUE: 3 view(s) of the shoulder. COMPARISON: None. FINDINGS: Normal glenohumeral articulation. Normal acromioclavicular joint. Normal acromion. Acute impacted fracture of the humeral neck. The soft tissue structures are unremarkable. Normal visualized pulmonary apex. RAD/Shoulder min 2 Views IMPRESSION: Acute impacted humeral neck fracture. Electronically Signed: Eris Ivey MD at 16:36 EST ,
--- NOTE | 2022-10-03 16:03 | CHAPLAIN ---
Type of Pastoral Visit _x__ Initial Visit ___ Follow-up Visit ___ On-call Visit ___ General Patient Visit ___ Spiritual Assessment ___ Family Conference ___ Bereavement ___ Rapid Response ___ Code Blue ___ Other (describe below) Pastoral Care Referral From _x__ Patient _x__ Family ___ Nurse ___ Physician ___ Mechanical Energy Engineer ___ Mangle Roll Operator ___ Other (describe below) Sacrament/Intervention _x__ Active listening ___ Anointing ___ Orthodoxy ___ Bereavement ___ Communion ___ Lelo exploration ___ ___ Life review _x__ Prayer ___ Reconciliation ___ Sacrament of Sick _x__ Supportive presence ___ Wedding ___ Other (describe below) Pastoral Comments
== END 2022-10-03 17:00 | disposition home or self-care (01) ==
PROVIDERS: Emergency Provider Emergency Medicine; PCP Internal Medicine; Visit Provider Emergency Medicine
DX: S42.202A Unspecified fracture of upper end of left humerus, initial encounter for closed fracture (principal); E11.22 Type 2 diabetes mellitus with diabetic chronic kidney disease; Z79.4 Long term (current) use of insulin; N18.30 Chronic kidney disease, stage 3 unspecified; I25.10 Atherosclerotic heart disease of native coronary artery without angina pectoris; I25.5 Ischemic cardiomyopathy; I12.9 Hypertensive chronic kidney disease with stage 1 through stage 4 chronic kidney disease, or unspecified chronic kidney disease; I25.2 Old myocardial infarction; Z95.1 Presence of aortocoronary bypass graft; Z79.82 Long term (current) use of aspirin; Z79.899 Other long term (current) drug therapy; W19.XXXA Unspecified fall, initial encounter; Z87.891 Personal history of nicotine dependence
CPT/HCPCS: 73030; 96372; 99282

== ENCOUNTER 2023-05-23 11:00 | Outpatient (RCR) | payer MEDICARE, OTHER, SELFPAY ==
[2020-05-18 06:45] VITALS: BMI 31.1
--- NOTE | 2022-12-06 10:01 | HP.PTEVAL_ITS ---
Patient's Visit Information CONCHA WOODWARD is a 87 year old F referred to Physical Therapy by ISIDRO MADRIGAL with a diagnosis of L proximal humerus fracture. Date of Evaluation: 12/05/22 Physical Therapist: Elie Mcdonald DPT - Visit Plan Frequency: 2-3x /Week Duration: 10 weeks Plan: phase I- 2 weeks (12/05/22-12/20/22). phase II- 4 weeks (12/20/22- 01/17/23). phase III- 4 weeks (-- 02/14/23). Progress as tolerated, not progressing faster than expected time frames. May use ice/heat/vaso. Start with passive ROM as tolerated, progress to HEP. - Subjective Pt. is here today for her initial evaluation with diagnosis of L proximal humerus fracture. Pt. initially slipped at fell on ice 10/03/22. She had a proximal fracture, but was able to progress with more conservative route. She is now ready to start phase I of PT working ROM. She is now out of her sling, but continues to keep her arm in guarded positioning. Pt. denies N/T, but does have some marked edema in her distal LUE. Pt. admits to not doing much, but has tried some occasional pendulums at home. Pt. is not driving, yet but would like to get back to this as well. Pt. is having some trouble sleeping, started in bed last fwe days, but has to get up and sit in chair for comfort.Pt. is home to get back to gym exercises, mostly like bike cardio and ADLs without limitations. - Pain L shoulder Pain Intensity (Out of 10): 2 Pain Intensity Range: 0, 7 - Objective POSTURE: Pt. tends to keep LUE in guarded posture, arm at side with elevated L shoulder girdle. PALPATION: Pt. has tenderness throughout LUE, worst at lateral shoulder. Pt. has some marked edema in at distal UE and into wrist, 1+ pitting. Most likely from lack of movement. Not much pain with palpation of distal UE. NEURO: normal sensation, did not test DTR this date. RUE DTR normal. ROM: RUE: full AROm. L UE: wrist limited extension, flexion mod loss (tightness). Normal ulnar and radial deviation. L elbow: lacking 10deg of flexion and 15deg of extension, 10deg of supination. Again mostly tightness, not much increase in pain. L shoulder: PROM: flexion 80deg, abd 45deg, ER at side 5deg. IR did not test. - Balance/Special Test Scores Quick DASH Score: 80.0000 - Goals Goal 1:: LTG: Pt. to be I with HEP. Goal Time Frame: 4-6 Weeks Goal 2:: STG: Pt. to have full PROM of L shoulder and elbow without increase in symptoms. Goal Time Frame: 2-4 Weeks Goal 3:: LTG: PT. to have full AROM of L shoulder and L elbow without increase in symptoms. Goal Time Frame: 4-6 Weeks Goal 4:: STG: Pt. to sleep throughout the night with increase in L shoulder pain. Goal Time Frame: 2 Weeks Goal 5:: LTG: Pt. to have at least 4/5 strength throughout L UE without increase in symptoms. Goal Time Frame: 6-8 Weeks Goal 6:: LTG: Pt. to complete all ADLs without limitations or increase in symptoms. Goal Time Frame: 4-6 Weeks - Rehabilitation Potential Physical Therapy Diagnosis: Pt. has signs and symptoms consistent with L proximal humerus fracture, conservative management. Pt. is overall doing well. She has some marked distal edema, most likely due to limited UE movement for the past 2 months. She has marked L shoulder pain, hypomoblity, elbow sitffness, LUE weakness and decreased ability to complete functional use of LUE. Pt. would benefit from PT to work on the above limitations progressing back to all previou s levels of ADLs and recreational activities without pain. Rehabilitation Potential: Good - Anticipated Interventions Patient/Client Instruction: Educate patient on: Condition, Plan of Care, Risk Factors, Benefits of Fitness Program For the Purpose of:: To foster healthy habits, To improve decision making, To facilitate caregiver knowledge, To improve self management, To prevent re- injury, To improve ability to perform tasks related to life management Therapeutic Exercise to Include: Strength training, Power training, Endurance training, Coordination, Body mechanics, Passive ROM, Active ROM For the Purpose of:: To decrease pain, To increase ROM, To increase oxygenation perfusion, To improve muscle performance and motor function, To improve health of tissue, To decrease soft tissue restriction, To increase flexibility/ROM, To improve endurance Manual Therapy Techniques to Include: Passive ROM For the Purpose of:: To decrease pain, To increase ROM, To improve nutrient delivery to tissue, To increase oxygenation perfusion, To improve muscle performance and motor function Cryotherapy (ice pack, ice massage): Yes Thermo therapy (hot pack): Yes Vasopneumatic device: Yes For the Purpose of:: To decrease pain, To decrease swelling/inflammation, To increase ROM, To improve nutrient delivery to tissue, To increase oxygenation perfusion Thank you for the opportunity to evaluate your patient. For Medicare and Medicare HMO plans, please review the plan of care and approve it. It will need to be FAXED BACK to us at [phone] for Medicare purposes. For Medicare only, by signing this I certify the plan of care. Please let me know if there are questions or concerns regarding this plan of care. Physician Signature: Date:
--- NOTE | 2023-01-01 10:35 | HP.PTREVAL_ITS ---
ISIDRO MADRIGAL, It has been my pleasure to treat CONCHA WOODWARD over the last 10 visits for L proximal humerus fracture. Please see the progress note below for an update on the physical therapy plan of care! Subjective: Pt reports being 40% better overall. Pt. is more conserned about her hand pain at this point in time. Pt. is to trial being back at home this we ekend. Objective/Function: PROM: R shoulder; flxion 110deg, abd 90deg, ER at side 25deg. AAROM: R shoulder: flexion 90deg, abd 75deg, ER at side 25deg. Pt. continues to have increased tightness at end range. We have progressed into some AAROM, but continue to stress progressing PROM as well. She is progressing, but slowly. She is not doing as much at home as I would like her to be., Plan Plan: phase I- 2 weeks (12/05/22-12/20/22). phase II- 4 weeks (12/20/22- 01/17/23). phase III- 4 weeks (-- 02/14/23). Cont. to progress end range of motion and addin AROM. Balance/Gait/Functional tests - Balance/Special Test Scores Quick DASH Score: 80.0000 Goals Goal 1:: LTG: Pt. to be I with HEP. Goal Time Frame: 4-6 Weeks Goal Progress: Progressing Goal 2:: STG: Pt. to have full PROM of L shoulder and elbow without increase in symptoms. Goal Time Frame: 2-4 Weeks Goal Progress: Progressing Goal 3:: LTG: PT. to have full AROM of L shoulder and L elbow without increase in symptoms. Goal Time Frame: 4-6 Weeks Goal Progress: Progressing Goal 4:: STG: Pt. to sleep throughout the night with increase in L shoulder pain. Goal Time Frame: 2 Weeks Goal Progress: Progressing Goal 5:: LTG: Pt. to have at least 4/5 strength throughout L UE without increase in symptoms. Goal Time Frame: 6-8 Weeks Goal Progress: Not Progressing Goal 6:: LTG: Pt. to complete all ADLs without limitations or increase in symptoms. Goal Time Frame: 4-6 Weeks Goal Progress: Progressing Anticipated Interventions Patient/Client Instruction: Educate patient on: Condition, Plan of Care, Risk Factors, Benefits of Fitness Program For the Purpose of:: To foster healthy habits, To improve decision making, To facilitate caregiver knowledge, To improve self management, To prevent re- injury, To improve ability to perform tasks related to life management Therapeutic Exercise to Include: Strength training, Power training, Endurance training, Coordination, Body mechanics, Passive ROM, Active ROM For the Purpose of:: To decrease pain, To increase ROM, To increase oxygenation perfusion, To improve muscle performance and motor function, To improve health of tissue, To decrease soft tissue restriction, To increase flexibility/ROM, To improve endurance Manual Therapy Techniques to Include: Passive ROM For the Purpose of:: To decrease pain, To increase ROM, To improve nutrient delivery to tissue, To increase oxygenation perfusion, To improve muscle performance and motor function Cryotherapy (ice pack, ice massage): Yes Thermo therapy (hot pack): Yes Vasopneumatic device: Yes For the Purpose of:: To decrease pain, To decrease swelling/inflammation, To increase ROM, To improve nutrient delivery to tissue, To increase oxygenation perfusion Please do not hesitate to contact me at [phone] by phone or if you have questions or concerns regarding this new plan of care! Sincerely, Elie Mcdonald DPT
--- NOTE | 2023-04-03 14:01 | HP.PTREVAL_ITS ---
ISIDRO MADRIGAL, It has been my pleasure to treat CONCHA WOODWARD over the last 40 visits for L proximal humerus fracture. Please see the progress note below for an update on the physical therapy plan of care! Subjective: Pt. reports being 65% better overall. Pt. reports no shoulder pain, but is still having trouble lifting OH and with lifting for ADls. She is back to driving and most functional activities, but reaching in/out of cupboards is still tough. Objective/Function: L shoulder: PROM: flexion 155deg, abd 140deg, ER at 90deg 50deg, IR at 90deg 30deg. AROM: flexion 130deg, abd 100deg, functional ER C1, functional SI joint on R L side. MMT: L shoulder: flexion 4/5, abd 4-/5, ER 4- /5, IR 5-/5, ext 5-/5. She continues to slowly progress with strengthening. She is a little more stalled on her ROM. I encourage her to be consistent with stretching at home and add in strength as tolerated. Plan Plan: I will see her with focus on end range of motions and progressing strengthening. Balance/Gait/Functional tests - Balance/Special Test Scores Quick DASH Score: 80.0000 Goals Goal 1:: LTG: Pt. to be I with HEP. Goal Time Frame: 4-6 Weeks Goal Progress: Progressing Goal 2:: STG: Pt. to have full PROM of L shoulder and elbow without increase in symptoms. Goal Time Frame: 2-4 Weeks Goal Progress: Progressing Goal 3:: LTG: PT. to have full AROM of L shoulder and L elbow without increase in symptoms. Goal Time Frame: 4-6 Weeks Goal Progress: Progressing Goal 4:: STG: Pt. to sleep throughout the night with increase in L shoulder pain. Goal Time Frame: 2 Weeks Goal Progress: Progressing Goal 5:: LTG: Pt. to have at least 4/5 strength throughout L UE without increase in symptoms. Goal Time Frame: 6-8 Weeks Goal Progress: Progressing Goal 6:: LTG: Pt. to complete all ADLs without limitations or increase in symptoms. Goal Time Frame: 4-6 Weeks Goal Progress: Progressing Anticipated Interventions Patient/Client Instruction: Educate patient on: Condition, Plan of Care, Risk Factors, Benefits of Fitness Program For the Purpose of:: To foster healthy habits, To improve decision making, To facilitate caregiver knowledge, To improve self management, To prevent re- injury, To improve ability to perform tasks related to life management Therapeutic Exercise to Include: Strength training, Power training, Endurance training, Coordination, Body mechanics, Passive ROM, Active ROM For the Purpose of:: To decrease pain, To increase ROM, To increase oxygenation perfusion, To improve muscle performance and motor function, To improve health of tissue, To decrease soft tissue restriction, To increase flexibility/ROM, To improve endurance Manual Therapy Techniques to Include: Passive ROM For the Purpose of:: To decrease pain, To increase ROM, To improve nutrient delivery to tissue, To increase oxygenation perfusion, To improve muscle performance and motor function Cryotherapy (ice pack, ice massage): Yes Thermo therapy (hot pack): Yes Vasopneumatic device: Yes For the Purpose of:: To decrease pain, To decrease swelling/inflammation, To increase ROM, To improve nutrient delivery to tissue, To increase oxygenation perfusion Please do not hesitate to contact me at [phone] by phone or if you have questions or concerns regarding this new plan of care! Sincerely, DORA IbarraT
--- NOTE | 2023-05-02 12:29 | HP.PTREVAL ---
Re-Evaluation Intro: ISIDRO MADRIGAL, It has been my pleasure to treat CONCHA WOODWARD over the last 45 visits for L proximal humerus fracture. Please see the progress note below for an update on the physical therapy plan of care! Subjective Subjective: Pt. reports overall doing better. but would like to get her arm up higher to complete all ADls. Pt. reports being 65% better overall. No pain in her shoulder, pain in her hand still, but is improving. Objective Objective/Function: L shoulder: AROM: flexion 90deg, abd 85deg, ER ear, IR glute. PROM: flexion 140deg, abd 135, ER at 90deg 30deg, IR at 9d0eg 20deg. MMT: L shoulder flexion: 14#, abd 11#, ER 6#, IR 19#. Pt. continues to have difficulty with active OH motions. I would like to work on improving this to allow for increased ease of getting into cabinets and other ADls. Plan Plan Plan: I will see her 1 x per week for 1 month to progress her functional motion and strength. Balance/Gait/Functional tests Balance/Special Test Scores Quick DASH Score: 80.0000 Goals Goals Goal 1:: LTG: Pt. to be I with HEP. Goal Time Frame: 4-6 Weeks Goal Progress: Progressing Goal 2:: STG: Pt. to have full PROM of L shoulder and elbow without increase in symptoms. Goal Time Frame: 2-4 Weeks Goal Progress: Progressing Goal 3:: LTG: PT. to have full AROM of L shoulder and L elbow without increase in symptoms. Goal Time Frame: 4-6 Weeks Goal Progress: Progressing Goal 4:: STG: Pt. to sleep throughout the night with increase in L shoulder pain. Goal Time Frame: 2 Weeks Goal Progress: Goal Met Goal 5:: LTG: Pt. to have at least 4/5 strength throughout L UE without increase in symptoms. Goal Time Frame: 6-8 Weeks Goal Progress: Progressing Goal 6:: LTG: Pt. to complete all ADLs without limitations or increase in symptoms. Goal Time Frame: 4-6 Weeks Goal Progress: Progressing Anticipated Interventions Anticipated Interventions Patient/Client Instruction: Educate patient on: Condition, Plan of Care, Risk Factors and Benefits of Fitness Program For the Purpose of:: To foster healthy habits, To improve decision making, To facilitate caregiver knowledge, To improve self management, To prevent re-injury and To improve ability to perform tasks related to life management Therapeutic Exercise to Include: Strength training, Power training, Endurance training, Coordination, Body mechanics, Passive ROM and Active ROM For the Purpose of:: To decrease pain, To increase ROM, To increase oxygenation perfusion, To improve muscle performance and motor function, To improve health of tissue, To decrease soft tissue restriction, To increase flexibility/ROM and To improve endurance Manual Therapy Techniques to Include: Passive ROM For the Purpose of:: To decrease pain, To increase ROM, To improve nutrient delivery to tissue, To increase oxygenation perfusion and To improve muscle performance and motor function Cryotherapy (ice pack, ice massage): Yes Thermo therapy (hot pack): Yes Vasopneumatic device: Yes For the Purpose of:: To decrease pain, To decrease swelling/inflammation, To increase ROM, To improve nutrient delivery to tissue and To increase oxygenation perfusion Re-Evaluation Ending Re-evaluation ending: Please do not hesitate to contact me at [phone] by phone or if you have questions or concerns regarding this new plan of care! Sincerely, Elie Mcdonald DPT
--- NOTE | 2023-05-23 11:30 | HP.PTDCSUM ---
Discharge Summary D/C summary: It has been my pleasure to treat CONCHA WOODWARD referred by ISIDRO MADRIGAL, with the diagnosis of L proximal humerus fracture for a total of 49 visit(s). Discharge Date: 05/23/23 Please see the following information for a summary of their discharge status. Subjective Subjective: Pt. reports overall doing better. Pt. reports being 70% better overall. She reports no pain in her shoulder. She is back to driving and all ADls, she does have some issues with getting into cabinets higher up, but otherwise is doing well. Pain L shoulder: Pain Intensity (Out of 10): 0 L wrist/hand: Pain Intensity (Out of 10): 0 Overall Improvement % Improvement: 70 Objective Objective/Function: L shoulder: AROM: flexion 95deg, abd 85deg, functional IR L gluteal region, functional ER ear. PROM: flexion 145deg, abd 140deg, ER at 90deg 45deg, IR at 90deg 30deg. MMT: 4/5 throughout, except 5-/5 IR, and 5/5 ext. Pt. reports no pain with her shoulder. Pt. is overall doing well. She is able to complete most functional activities without limitations. Pt. is to progress with HEP toward further ROM and strengthening on her own at this point in time. Goals Goal 1:: LTG: Pt. to be I with HEP. Goal Progress: Goal Met Goal 2:: STG: Pt. to have full PROM of L shoulder and elbow without increase in symptoms. Goal Progress: Progressing Goal 3:: LTG: PT. to have full AROM of L shoulder and L elbow without increase in symptoms. Goal Progress: Progressing Goal 4:: STG: Pt. to sleep throughout the night with increase in L shoulder pain. Goal Progress: Goal Met Goal 5:: LTG: Pt. to have at least 4/5 strength throughout L UE without increase in symptoms. Goal Progress: Goal Met Goal 6:: LTG: Pt. to complete all ADLs without limitations or increase in symptoms. Goal Progress: Goal Met Plan Plan: Pt. to be DC to HEP at this point in time. D/C Information Discharge Comments: Pt. was treated for her L shoulder fracture with PROM, AROM then strengthening. She did not regain full ROM, but is pleased with the motion she has. SHe is strong with in this motion and is doing all ADLs without issues. Pt. is I with HEP and will be DC this date. d/c sentence: If there are questions or concerns regarding this patient's physical therapy, please feel free to call me at [phone]. Thank you for the referral of this patient. Sincerely, Elie Guerreroos, DPT Balance/Gait/Functional tests Balance/Special Test Scores Quick DASH Score: [phone]
== END 2023-05-23 19:00 | disposition home or self-care (01) ==
LOC: PT 11:00
PROVIDERS: PCP Internal Medicine
DX: S42.202D Unspecified fracture of upper end of left humerus, subsequent encounter for fracture with routine healing (principal)
CPT/HCPCS: 97110; 97161; 97164; 97530

== ENCOUNTER → 2024-10-23 | Outpatient (CLI) | payer MEDICARE, OTHER, SELFPAY ==
[2020-05-18 06:45] VITALS: BMI 31.1
--- NOTE | 2024-10-23 12:37 | ECHOD_ITS ---
Reason For Study: CARDIOMYOPATHY Procedure This was a 2D Doppler, Color Flow transthoracic echocardiogram. The study was technically difficult. Exam performed in department. Left Ventricle Normal LV size. Mild concentric left ventricular hypertrophy. The left ventricular ejection fraction is 50 %. Stage 2 diastolic dysfunction. No regional wall motion abnormalities noted. Right Ventricle Normal RV size. Normal systolic function. Atria Normal left atrium. Normal right atrium. Mitral Valve Normal mitral valve. Mild (1+) eccentric mitral valve insufficiency. Tricuspid Valve Normal tricuspid valve. Aortic Valve Trisinus/trileaflet aortic valve. Mild focal aortic valve calcification. Pulmonic Valve Normal pulmonic valve. Great Vessels Normal aortic root. The pulmonary artery is normal size. Normal inferior vena cava. Pericardium/Pleural No pericardial effusion. Medication Unable to gain IV access for Defintiy. MMode/2D Measurements & Calculations LVIDd: 4.7 cm IVSd: 1.2 cm LVOT diam: 1.9 cm LVIDs: 3.4 cm LVPWd: 1.2 cm RVDd: 3.0 cm FS: 28.0 % LVOT area: 2.8 cm2 asc Aorta Diam: 3.0 cm LAV(MOD-bp): 40.0 ml LVAd ap4: 17.8 cm2 LAV(MOD-bp) Indexed: 22.2 ml/m2 LVLd ap4: 6.3 cm LAV(MOD-sp2): 41.8 ml EDV(MOD-sp4): 45.2 ml LAV(MOD-sp4): 36.0 ml EDV(sp4-el): 43.1 ml LVAs ap4: 11.9 cm2 LVLs ap4: 5.6 cm ESV(MOD-sp4): 22.4 ml ESV(sp4-el): 21.5 ml EF(MOD-sp4): 50.4 % EF(sp4-el): 50.0 % LVAd ap2: 19.2 cm2 SV(MOD-sp4): 22.8 ml SV(MOD-sp2): 26.1 ml LVLd ap2: 6.3 cm SI(MOD-sp4): 12.6 ml/m2 SI(MOD-sp2): 14.5 ml/m2 EDV(MOD-sp2): 51.1 ml EDV(sp2-el): 49.3 ml LVAs ap2: 12.1 cm2 LVLs ap2: 5.6 cm ESV(MOD-sp2): 24.9 ml ESV(sp2-el): 22.1 ml EF(MOD-sp2): 51.2 % SV(sp4-el): 21.5 ml Ao sinus diam: 2.[address] Junction: 2.1 cm LA dimension(2D): 4.0 cm LA A4 area: 15.9 cm2 RA A4 area: 10.0 cm2 TAPSE: 1.3 cm Time Measurements MV dec time: 0.15 sec Doppler Measurements & Calculations MV E max kyaw: 103.8 cm/sec Lat Peak E' Kyaw: 6.5 cm/sec Med Peak E' Kyaw: 5.0 cm/sec MV A max kyaw: 57.8 cm/sec E/E' lat: 16.0 E/E' med: 20.7 MV E/A: 1.8 MV dec slope: 684.9 cm/sec2 Ao V2 max: 129.3 cm/sec LV V1 max: 82.5 cm/sec Ao max P.7 mmHg LV V1 max P.7 mmHg Ao V2 mean: 94.7 cm/sec LV V1 mean P.9 mmHg Ao mean P.9 mmHg LV V1 mean: 65.4 cm/sec Ao V2 VTI: 34.3 cm LV V1 VTI: 22.9 cm AV (velocity ratio): 0.67 TAVARES(I,D): 1.9 cm2 TAVARES(V,D): 1.8 cm2 SV(LVOT): 64.5 ml PA V2 max: 80.8 cm/sec ECHO/Echo Complete Interpretation Summary Normal LV size. The left ventricular ejection fraction is 50 %. Stage 2 diastolic dysfunction. Structurally normal valves. Ordering Physician: Marika George Referring Physician: Siena Warren M.D. Performed By: Therese Adams RDCS
== END | disposition home or self-care (01) ==
LOC: CVS 12:33
PROVIDERS: PCP Internal Medicine; Referring Provider Physician Assistant Medical; Visit Provider Physician Assistant Medical
DX: I25.5 Ischemic cardiomyopathy (principal)
CPT/HCPCS: 93306

== ENCOUNTER 2025-01-05 11:09 | Emergency (ER) | payer MEDICARE, OTHER, SELFPAY ==
[2020-05-18 06:45] VITALS: BMI 31.1
[2025-01-05 11:10] VITALS: BP 161/81; PULSE 96; RESP 16; TEMP 36.6; O2SAT 97
[2025-01-05 11:12] VITALS: BMI 30.9
--- NOTE | 2025-01-05 11:23 | EDS_ITS ---
<Statement entered by Igor Wells DO - 01/07/25 07:29> Patient was seen and examined with physician addictions counselor assistant Brionna All components of the history and physical confirmed and agreed. History of present illness and physical exam: Patient is a 89-year-old female past medical history of of CAD, carotid stenosis, thrombocytopenia, hypertension, diabetes, meningioma who presents to the emergency department with a chief complaint not feeling well for the past 5 days. States that she originally started with cough congestion and generalized weakness. States that she is prescribed Tamiflu by her daughters physician colleague based on her symptoms did not test for influenza. States that she took 3 doses but this made her worse therefore she discontinued taking this. States that this morning she woke up with chills sweats and feeling worse therefore they brought her here for further evaluation management. Review of systems: Agree with above Physical exam:. Above MDM Patient is a 89-year-old female who presented to the [facility] part with chief complaint of generalized not feeling well. On the differential diagnose includes but limited to COVID, flu, ACS, pneumonia, other upper respiratory effect secondary viral etiology electrolyte abnormality. Once workup is obtained reviewed she will be reevaluated. Patient CBC reviewed showed no evidence leukocytosis white blood count of 6.9, hemoglobin was 11.6, plate count noted be 228. Her sodium was normal at 137, potassium low at 4.1, creatinine was elevated 1.95, calcium 9.1. Patient chest x-ray reviewed myself by radiology showed no acute cardiopulmonary processes. Patient did test positive for influenza A here in the emergency department. Patient ambulate here in the [facility] part without any difficulty. Did discuss results with the patient and for member at bedside. Patient would like to go home at this point time. She advised to continue supportive care and follow-up with her primary care physician outpatient setting. She is encouraged return with worsening symptoms or concerns. She is agreeable spinal cord concerns answered she is discharged home in stable condition. Final impression: Influenza A Disposition: Patient will be discharged home in stable condition Supervising attending attestation: Igor Wells D.O. [facility] History of Present Illness Chief Complaint: General Illness Narrative Narrative: 89-year-old female with PMH of HTN, HLD, DM2, CKD, CABG has had 5 days of generalized illness. It started with congestion, cough, and generalized weakness. She was prescribed Tamiflu by her daughters physician colleague based on her symptoms but was not tested for influenza. She took 3 doses but it caused nausea vomiting and diarrhea so she stopped taking it. She was doing better for a day or so but this morning woke up with chills, sweats, continued cough and generalized weakness and decided to be evaluated. She denies chest pain or shortness of breath. [facility] Medical History Atherosclerosis of coronary artery of jackson heart without angina pectoris Bilateral renal cysts STEMI (ST elevation myocardial infarction) Acute renal failure superimposed on stage 3 chronic kidney disease Paroxysmal atrial fibrillation with RVR Carotid stenosis, right Decubitus ulcer, stage II Thrombocytopenia Acute blood loss anemia Chronic renal failure, stage 3 (moderate) Benign paroxysmal positional vertigo Mild atrial enlargement, left Nonrheumatic mitral valve regurgitation Internal hemorrhoids Diverticulosis Ischemic cardiomyopathy Hypertension Diabetes Physical debility Constipation due to pain medication Gout Basal ganglia infarction Intracranial meningioma Type II diabetes mellitus Benign hypertension Home Medications ?Medication ?Instructions ?Recorded ?Last Taken ?Type allopurinol 100 mg tablet 100 mg PO DAILYCM gout 04/2801/03/20 History aspirin 81 mg chewable tablet 81 mg PO DAILY heart Unknown History calcium carbonate-vitamin D3 600 1 ea PO DAILY bones 0 01/17/20 Unknown History mg-125 unit tablet metoprolol succinate 100 mg 100 mg PO DAILY bp 0 Unknown History tablet,extended release 24 hr amlodipine 5 mg tablet 5 mg PO DAILY 03/03/20 Unkno wn History insulin aspart U-100 100 unit/mL 7 unit subcut QAC dm 06/28/20 Unknown History (3 mL) subcutaneous pen insulin glargine 100 unit/mL (3 9 unit subcut DAILY Unknown History mL) subcutaneous pen propylene glycol 0.6 % eye drops 1 drp ophthalmic (eye ) DAILY PRN 06/28/20 Unknown History (Systane Balance) Dry Eyes ondansetron 4 mg disintegrating 4 mg PO Q8H PRN nausea and 10/03/22 Unknown Rx tablet vomiting #10 tabs losartan 50 mg tablet 50 mg PO QDAY 09/22/24 Unkno wn History rosuvastatin 10 mg tablet 10 mg PO QDAY 09/22/24 Unkno wn History oseltamivir 75 mg capsule (Tamiflu) 75 mg PO BID 5 day s #10 caps 01/02/25 Unknown Rx Allergy/AdvReac Type Severity Reaction Status Date / Time codeine AdvReac Nausea/Vom/ Verified 01/05/25 11:12 Diarrhea morphine AdvReac Nausea/Vom/ Verified 01/05/25 11:12 Diarrhea Family History Aunt Breast cancer Mother Heart disease Father Heart disease Surgical History History of cholecystectomy History of coronary artery bypass graft H/O angioplasty History of left heart catheterization tubal Social History number of children: 2 current occupational status: retired Smoking Status: Former smoker alcohol intake: never substance use type: does not use diet: diabetic caffeine: Yes Type: coffee Number of servings: 1 seatbelt use: always do you feel safe at home: Yes additional social history: 2 children adopted ROS ROS ED ROS Narrative Constitutional: Positive for chills, malaise. ENT: Positive for rhinorrhea. CVS: Negative for chest pain. Respiratory: Positive for cough. Negative for shortness of breath. GI: Negative for abdominal pain. Neuro: Negative for headache. EXAM Physical Exam Narrative Exam Narrative: CONST: Patient sitting in no acute distress. EYES: Normal inspection. NECK: Normal inspection. RESP: No respiratory distress, minimal bibasilar wheeze. CVS: Regular rate and rhythm, no murmur, no gallop. ABD: Soft and nontender, no guarding or rebound, nondistended. SKIN: Color normal, no rash, warm, dry, intact. EXTREMITIES: Normal appearance, no pedal edema. NEURO: Alert and answering questions appropriately. PSYCH: Normal affect. Const Vital Signs: 01/05/25 11:10 01/05/25 11:29 01/05/25 13:10 Temperature 97.9 F Temperature Source Oral Pulse Rate 96 68 Respiratory Rate 16 18 Respiratory Effort Normal Respiratory Pattern Normal Blood Pressure 161/81 H Blood Pressure Mean 107 Pulse Ox 97 96 Oxygen Delivery Method Room Air Room Air 01/05/25 13:49 Temperature 97.9 F Temperature Source Pulse Rate 68 Respiratory Rate 18 Respiratory Effort Respiratory Pattern Blood Pressure 161/81 H Blood Pressure Mean 107 Pulse Ox 96 Oxygen Delivery Method MDM MDM MDM Narrative Medical decision making narrative: History gathered from: Patient and daughter Differential: Includes but not limited to viral illness, pneumonia, electrolyte abnormality, SHA 89-year-old female has had 5 days of generalized illness with chills, congestion, and cough. She did not have viral testing but took Tamiflu for a day and a half which caused GI symptoms so she discontinued it. She is awake alert in no distress. Vital signs stable. Afebrile. Overall her exam is benign. CBC shows normal WBC of 6.9 and stable hemoglobin at 11.6. Electrolytes are unremarkable. BUN 42, creatinine 1.95. It looks like her baseline creatinine ranges from 1.4-1.9. She may be slightly prerenal and was given IV fluids. Glucose is 197. Viral swab was positive for influenza A. CXR negative. Patient was able to ambulate independently down the ashraf and feels comfortable going home. I discussed symptomatic management and return precautions. She was discharged in stable condition. Lab Data Attestation: I reviewed the patient's lab results. Labs: Laboratory Results - last 24 hr 01/05/25 11:44 WBC 6.9 RBC 3.92 L Hgb 11.6 L Hct 35.8 L MCV 91.3 MCH 29.6 MCHC 32.4 RDW Std Deviation 44.8 H RDW Coeff of Hernan 13.3 Plt Count 228 MPV 11.1 Immature Gran % (Auto) 0.300 Neut % (Auto) 56.9 Lymph % (Auto) 35.0 Dolores % (Auto) 7.2 Eos % (Auto) 0.3 Baso % (Auto) 0.3 Absolute Neuts (auto) 4.0 Absolute Lymphs (auto) 2.43 Nucleated RBC % 0 Sodium 137 Potassium 4.1 Chloride Direct 105 Carbon Dioxide 18.9 L Anion Gap 13 BUN 42 H Creatinine 1.95 H Estim Creat Clear Calc 20.25 L Est GFR (MDRD) Non-Af 24 L BUN/Creatinine Ratio 21.5 H Glucose 197 H Calcium 9.1 Radiography Diagnostic Testing: Clinical Impression(s) from Imaging Studies Chest X-Ray 01/05/25 11:45 IMPRESSION: No acute cardiopulmonary process. Reading Location: [facility] ED attending interpretation of 2 view chest x-ray shows normal heart size and no acute infiltrate. Discharge Plan Triage Chief Complaint: General Illness ED Midlevel Provider: Brionna Malin ED Provider: Igor Wells Dx/Rx/DC Orders Clinical Impression: Influenza A, Generalized weakness, Chronic kidney disease, Mild dehydration Instructions: ED Influenza (Adult) Prescriptions: No Action insulin glargine 100 unit/mL (3 mL) insulin pen 9 unit subcut DAILY Systane Balance 0.6 % drops 1 drp OPHTHALMIC DAILY PRN (Reason: Dry Eyes) amlodipine 5 mg tablet 5 mg PO DAILY rosuvastatin 10 mg tablet 10 mg PO QDAY losartan 50 mg tablet 50 mg PO QDAY allopurinol 100 MG tablet 100 mg PO DAILYCM Patient Comments: GOUT metoprolol succinate 100 MG tablet extended release 24 hr 100 mg PO DAILY aspirin 81 MG tablet,chewable 81 mg PO DAILY calcium carbonate-vitamin D3 1 EACH tablet 1 ea PO DAILY insulin aspart U-100 100 unit/mL (3 mL) insulin pen 7 unit subcut QAC Rx Instructions: 7 units AM, 6 units, 7 units dinner ondansetron 4 mg tablet,disintegrating 4 mg PO Q8H PRN (Reason: nausea and vomiting) Qty: 10 0RF oseltamivir [Tamiflu] 75 mg capsule 75 mg PO BID 5 Days Qty: 10 0RF Primary Care Provider: Siena Warren Referrals: Siena Warren MD [Primary Care Provider] - Activity Restrictions/Additional Instructions: You tested positive for influenza A. Rest, take Tylenol as needed for fever or pain. Return if symptoms worsen such as if you develop shortness of breath or worsening cough or weakness. Print Language: Hungarian Disposition Disposition: Home, Self Care
--- NOTE | 2025-01-05 11:45 | RAD_ITS ---
EXAM: XR Chest, 2 Views CLINICAL INDICATION: TECHNIQUE: Frontal and lateral views of the chest. COMPARISON: No relevant prior studies available. FINDINGS: LUNGS AND PLEURAL SPACES: Unremarkable. No consolidation. No pneumothorax. HEART: Unremarkable. No cardiomegaly. MEDIASTINUM: Unremarkable. Normal mediastinal contour. BONES/JOINTS: Unremarkable. No acute fracture. RAD/Chest PA and Lateral IMPRESSION: No acute cardiopulmonary process. Reading [facility]
[2025-01-05 11:56] LABS: Absolute Lymphocyte Count 2.43 X10^3/uL (0.83-4.51); Basophil# 0.02 X10^3/uL; Basophil% 0.3 % (0-1); Eosinophil# 0.02 X10^3/uL; Eosinophils% 0.3 % (0-5); Hematocrit 35.8 % (37-47); Hemoglobin 11.6 g/dL (12.0-15.0); Lymphocyte # 2.43 X10^3/ul (0.83-4.51); Mean Corp Hgb Conc 32.4 g/dL (32-36); Mean Corpuscular Hgb 29.6 pg (27.0-32.0); Mean Corpuscular Volume 91.3 fL (81-99); Mean Platelet Vol. 11.1 fl (6.2-12.0); Monocyte% 7.2 % (0-10); NRBC Flagged by Analyzer 0 % (0-5); Neutrophil # 3.95 X10^3/uL (2.7-7.7); Neutrophil % 56.9 % (47-70); POSITIVE MORPHOLOGY YES; Platelet Count 228 K/mm3 (150-450); RBC Distribution Width CV 13.3 % (11.6-14.6); RBC Distribution Width SD 44.8 fl (35.1-43.9); Red Blood Count 3.92 M/mm3 (4.2-5.4); White Blood Count 6.9 K/mm3 (4.4-11.0)
[2025-01-05 11:58] LABS: Differential Indicated SCAN CRITERIA MET
[2025-01-05 12:13] LABS: Anion Gap 13 (5-15); BUN 42 mg/dL (4-19); BUN/Creat Ratio 21.5 RATIO (10-20); Calcium 9.1 mg/dL (7.6-11.0); Carbon Dioxide 18.9 mmol/L (22.0-29.0); Chloride 105 mmol/L (96-108); Creatinine, Serum 1.95 mg/dL (0.70-1.20); EST Glomerular Filtration Rate 24 (>60); Estimated Creatinine Clearance 20.25 ml/min (50-250); Glucose 197 mg/dL (70-99); Potassium 4.1 mmol/L (3.3-5.1); Sodium Level 137 mmol/L (133-145)
--- NOTE | 2025-01-05 12:40 | ED.RN ---
Patient ambulated to bathroom with family's assistance. Patient ambulated without issue.
[2025-01-05] MEDS: 0.9% Normal Saline (1000mL) 1,000 ML 999 ML IV (12:51)
[2025-01-05 13:10] VITALS: PULSE 68; RESP 18; O2SAT 96
[2025-01-05 13:49] VITALS: BP 161/81; PULSE 68; RESP 18; TEMP 36.6; O2SAT 96
== END 2025-01-05 13:54 | disposition home or self-care (01) ==
PROVIDERS: Physician Assistant; Emergency Provider Emergency Medicine; PCP Internal Medicine; Visit Provider Emergency Medicine
DX: J10.1 Influenza due to other identified influenza virus with other respiratory manifestations (principal); I48.0 Paroxysmal atrial fibrillation; E11.22 Type 2 diabetes mellitus with diabetic chronic kidney disease; Z79.4 Long term (current) use of insulin; I25.10 Atherosclerotic heart disease of native coronary artery without angina pectoris; I12.9 Hypertensive chronic kidney disease with stage 1 through stage 4 chronic kidney disease, or unspecified chronic kidney disease; E86.0 Dehydration; Z87.891 Personal history of nicotine dependence; E78.5 Hyperlipidemia, unspecified; Z95.1 Presence of aortocoronary bypass graft; M10.9 Gout, unspecified; Z79.899 Other long term (current) drug therapy; Z79.82 Long term (current) use of aspirin; Z90.49 Acquired absence of other specified parts of digestive tract
CPT/HCPCS: 71046; 80048; 85025; 87631; 96360; 99283; A4216

== ENCOUNTER 2025-06-14 08:16 | Inpatient (IN) | payer MEDICARE, OTHER, SELFPAY ==
[2020-05-18 06:45] VITALS: BMI 31.1
[2025-06-14] VITALS (10 sets, daily range): BP systolic 136–175; BP diastolic 62–83; PULSE 68–82; RESP 16–24; TEMP 36.5–37; O2SAT 93–99; BMI 29.9; BMI 30.7
--- NOTE | 2025-06-14 08:34 | EKG12_ITS ---
Test Reason : Blood Pressure : */* mmHG Vent. Rate : 72 BPM Atrial Rate : 72 BPM P-R Int : 188 ms QRS Dur : 128 ms QT Int : 462 ms P-R-T Axes : 51 -44 76 degrees QTcB Int : 505 ms Normal sinus rhythm Left axis deviation Right bundle branch block Minimal voltage criteria for LVH, may be normal variant ( R in aVL ) Abnormal ECG Confirmed by JOSE RIVERA, JHONATAN ([id number]), field map editor KRISHAN LEE ([id number]) on 06/15/2025 1:14:12 PM Referred By: DAVID Confirmed By: JHONATAN GARCIA MD
--- NOTE | 2025-06-14 08:35 | EX.ED.DYSGE1 ---
HPI History of Present Illness Chief Complaint: General Illness Detail of Chief Complaint: Just not feeling well. Informant: patient and family Onset/Context/Timing Onset: Weeks Context: Gradual Onset Timing: Continuous Current Severity: Mild Maximum Severity: Mild Narrative Narrative: 89-year-old female who is independently at home history of prior stroke, chronic kidney disease, diabetes, hypertension and prior MD with CABG. States she just feels generally weak. She was seen at the [facility] urgent care. Diagnosed with a possible UTI started on cephalexin 254 times a day for 5 days. But the urine culture came back negative. She finished the antibiotics because she was pretty far into the course. Denies currently any abdominal pain. No chest pain or shortness of breath. Denies any dysuria. She has had some mild diarrhea. Denies any melena. 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 Bilateral renal cysts STEMI (ST elevation myocardial infarction) Acute renal failure superimposed on stage 3 chronic kidney disease Paroxysmal atrial fibrillation with RVR Carotid stenosis, right Decubitus ulcer, stage II Thrombocytopenia Acute blood loss anemia Chronic renal failure, stage 3 (moderate) Benign paroxysmal positional vertigo Mild atrial enlargement, left Nonrheumatic mitral valve regurgitation Internal hemorrhoids Diverticulosis Ischemic cardiomyopathy Hypertension Diabetes Physical debility Constipation due to pain medication Gout Basal ganglia infarction Intracranial meningioma Type II diabetes mellitus Benign hypertension Home Medications ?Medication ?Instructions ?Recorded ?Last Taken ?Type allopurinol 100 mg tablet 100 mg PO DAILYCM gout 04/28/14 01/03/20 History aspirin 81 mg chewable tablet 81 mg PO DAILY heart 01/17/20 Unknown History calcium carbonate-vitamin D3 600 1 ea PO DAILY bones 01/17/20 Unknown History mg-125 unit tablet metoprolol succinate 100 mg 100 mg PO DAILY bp 01/17/20 Unknown History tablet,extended release 24 hr insulin glargine 100 unit/mL (3 9 unit subcut DAILY 06/28/20 Unknown History mL) subcutaneous pen propylene glycol 0.6 % eye drops 1 drp ophthalmic (eye) DAILY PRN 06/28/20 Unknown History (Systane Balance) Dry Eyes losartan 50 mg tablet 50 mg PO QDAY 09/22/24 Unknown History amlodipine 10 mg tablet 10 mg PO QDAY 04/30/25 Unknown History insulin aspart U-100 100 unit/mL 7 unit subcut QAC dm 04/30/25 Unknown History (3 mL) subcutaneous pen rosuvastatin 5 mg tablet 5 mg PO QDAY 04/30/25 Unknown History Allergy/AdvReac Type Severity Reaction Status Date / Time codeine AdvReac Nausea/Vom/ Verified 04/30/25 15:26 Diarrhea morphine AdvReac Nausea/Vom/ Verified 04/30/25 15:26 Diarrhea Family History Aunt Breast cancer Mother Heart disease Father Heart disease Surgical History History of cholecystectomy History of coronary artery bypass graft H/O angioplasty History of left heart catheterization tubal Social History number of children: 2 current occupational status: retired Smoking Status: Former smoker alcohol intake: never substance use type: does not use diet: diabetic caffeine: Yes Type: coffee Number of servings: 1 seatbelt use: always do you feel safe at home: Yes additional social history: 2 children adopted ROS ROS ED ROS Narrative Just not feeling well. Weakness. Denies nausea or vomiting. Denies fever. Denies dysuria. No cough or chest pain. No shortness of breath. No abdominal pain. Has had some diarrhea. Constitutional Constitutional ED: Denies chills or fever(s) Eyes Eyes: Denies blurry vision ENT ENT ED: Denies ear pain Cardiovascular Cardiovascular: Denies chest pain Respiratory/Chest Respiratory/Chest: Denies cough or dyspnea Gastrointestinal Gastrointestinal: Reports diarrhea; Denies abdominal pain, constipation, melena, nausea or vomiting Genitourinary Genitourinary ED: Denies dysuria or hematuria Musculoskeletal Musculoskeletal: Denies arthralgias Integumentary Denies abscess Neurologic Neurologic: Denies headache(s) Psychiatric Psychiatric: Denies anxiety Endocrine Endocrinology: Denies cold intolerance Hematologic/Lymphatic Hematologic/Lymphatic: Reports none Allergic/Immunologic Allergic/Immunologic ED: Denies mouth swelling, tongue swelling or urticaria EXAM Physical Exam Narrative Exam Narrative: Well-appearing 89-year-old female. Family at bedside. Vital signs are stable and afebrile. No acute distress. H EENT exam pupils round react light. No facial droop. Extraocular motions are intact. Normal speech. Mildly dry mucous membranes. No trauma. Neck nontender no lymphadenopathy. Back nontender. Lungs clear to auscultation bilaterally. Heart regular rhythm rate about 75 no murmur. Chest wall and ribs nontender. Abdomen soft, nontender, nondistended, normal bowel sounds without peritoneal signs. She has no reproducible abdominal tenderness in either upper or lower quadrants. There is no hernia or mass. No obstruction. Both the right upper and right lower quadrants are nontender. Moving all 4 extremities. Normal load dispatcher strength bilaterally. Normal dorsi plantarflexion. Calves are nontender without edema. Back nontender. Neurologically she is awake and alert. Answering questions following commands. No focal motor deficits. Very benign exam. Const Vital Signs: 06/14/25 08:17 06/14/25 08:19 06/14/25 08:37 Temperature 98.6 F 98.6 F Temperature Source Temporal Oral Pulse Rate 74 74 Respiratory Rate 16 16 Respiratory Effort Normal Blood Pressure 145/83 H 145/83 H Blood Pressure Mean 103 103 Pulse Ox 96 96 Oxygen Delivery Method Room Air Room Air 06/14/25 09:19 06/14/25 10:19 Temperature 98.6 F 98.6 F Temperature Source Oral Oral Pulse Rate 69 69 Respiratory Rate 22 H 19 H Respiratory Effort Blood Pressure 168/64 H 160/72 H Blood Pressure Mean 98 101 Pulse Ox 97 97 Oxygen Delivery Method Room Air Positive well nourished and well developed; Negative for cachectic, contractures or unkempt General Appearance ED: well developed and NAD; Negative for unkempt, cachectic, contractures, cyanotic, diaphoretic or pallor Nutritional Appearance: Negative for cachectic HEENT Reports moist mucous membranes Negative for trauma or tenderness Eyes PERRL and EOMs intact bilaterally General Eye ED: Negative for pale conjunctiva or scleral icterus Neck no lymphadenopathy, supple and no JVD Chest Wall inspection of chest normal and palpation of chest normal Resp normal respiratory effort and clear to auscultation bilaterally Cardio regular rate, regular rhythm, S1 normal heart sound, S2 normal heart sound and no murmurs GI normal to inspection, nondistended, normoactive bowel sounds, non-tender, non-distended and no masses Auscultation: normoactive bowel sounds Palpation: soft; Negative for tender, guarding, splenomegaly, mass or rebound tenderness present Back/Spine no CVA tenderness General Back: Negative for CVA tenderness Cervical Spine: Negative for cervical spine tenderness Thoracic Spine / Upper Back: Negative for thoracic spinal tenderness Lumbar Spine / Lower Back: Negative for lumbar spinal tenderness Extremity normal to inspection General Extremety ED: Negative for edema or tenderness General Extremity: Negative for edema Neuro oriented x3 and CN's II-XII intact bilaterally Sensorium / Orientation: alert Motor Exam: strength 5/5 throughout Psych mental status grossly normal Appearance: Negative for unkempt Attitude: No agitated Mood & Affect: Negative for depressed, anxious or tearful Skin no rashes or lesions noted and no wounds General Skin Exam: Negative for jaundice or pallor Lesions: No lesion noted Rashes: No rashes noted Trauma: Negative for abrasion Wounds: Negative for wounds noted MDM MDM MDM Narrative Medical decision making narrative: 89-year-old female just not feeling well benign exam. She may be mildly dehydrated from diarrhea. Screening labs will be obtained she will be treated with IV fluids. Repeat exam patient is doing well at 11 AM. I discussed all of her test results with both her and her family at bedside. I spoke to our hospitalist given that her creatinine is gone from 1 9-2.46 and her age she felt most appropriate to admit her to the hospital observe her overnight recheck her kidney function tomorrow. I did already give her a liter normal saline. Patient and family are comfortable the plan. I also have a primary care physician in the [facility] on page to ensure close follow-up after her discharge.. Lab Data Attestation: I reviewed the patient's lab results. Lab results narrative: CBC shows white count 12.3 H&H 9.8 and 30. Platelets 342. Electrolytes show sodium 136. Gap 15. BUN and creatinine of 53 and 2.46. Glucose 156. Liver enzymes unremarkable. Urinalysis shows no white or red cells no nitrites. No bacteria. Chest x-ray chronic changes. Labs: Laboratory Results - last 24 hr 06/14/25 06/14/25 06/14/25 08:52 10:02 10:05 WBC 12.3 H RBC 3.33 L Hgb 9.8 L Hct 30.2 L MCV 90.7 MCH 29.4 MCHC 32.5 RDW Std Deviation 46.9 H RDW Coeff of [place] 14.0 Plt Count 342 MPV 10.5 Immature Gran % (Auto) 0.300 Neut % (Auto) 77.1 H Lymph % (Auto) 16.9 L [place] % (Auto) 4.9 Eos % (Auto) 0.3 Baso % (Auto) 0.5 Absolute Neuts (auto) 9.5 H Absolute Lymphs (auto) 2.09 Nucleated RBC % 0 Sodium 136 Potassium 4.7 Chloride 105 Carbon Dioxide 17.1 L Anion Gap 15 BUN 53 H Creatinine 2.46 H Estim Creat Clear Calc 15.50 L Est GFR (MDRD) Non-Af 18 L BUN/Creatinine Ratio 21.4 H Glucose 156 H Calcium 9.5 Total Bilirubin 0.51 AST 23 ALT 19 Alkaline Phosphatase 94 Total Protein 7.1 Albumin 4.2 Globulin 2.9 Albumin/Globulin Ratio 1.4 Urine Color Yellow Urine Clarity Clear Urine pH 6.0 Ur Specific [place] 1.020 Urine Protein 500 H Urine Glucose (UA) 100 H Urine Ketones Negative Urine Occult Blood 10 H Urine Nitrite Negative Urine Bilirubin Negative Urine Urobilinogen Normal Ur Leukocyte Esterase Negative Urine RBC 0-5 SEEN Urine WBC 0-5 SEEN Ur Squamous Epith Cells 0-5 SEEN Urine Bacteria 0 SEEN Hyaline Casts 0-5 SEEN Urine Mucus 0 SEEN POC Glucose 120 H Radiography Chest X-Ray - ED: Read by ED Physician, Read by Radiologist, Lungs, Mediastinum, Bony Structures, No Acute Disease, Chronic Changes and Cardiomegaly Diagnostic Testing: Clinical Impression(s) from Imaging Studies Chest X-Ray 06/14/25 09:05 IMPRESSION: Cardiomegaly with mild vascular congestion. Reading Location: [facility] Chest x-ray, 2 views, AP and lateral, interpreted by myself and the radiologist shows cardiomegaly with prior sternotomy and sternal wires. Mild basilar vascular congestion. No pneumonia. No effusion. Primarily chronic changes. Rhythm Strip Rhythm Strip: Sinus Rhythm Rate: 72 Ectopy: None EKG Initial EKG: Attestation: I personally reviewed and interpreted this EKG as follows: Interpretation: Sinus Rhythm, No Acute Injury Pattern and RBBB Comments: Normal sinus rhythm rate of 72 no acute signs of MD or ischemia. Right bundle branch block. Discharge Plan Triage Chief Complaint: General Illness ED Provider: Homero Mendosa Dx/Rx/DC Orders Clinical Impression: Chronic kidney disease, Acute dehydration, Diarrhea, History of diabetes mellitus, History of hypertension Prescriptions: No Action insulin glargine 100 unit/mL (3 mL) insulin pen 9 unit subcut DAILY Systane Balance 0.6 % drops 1 drp OPHTHALMIC DAILY PRN (Reason: Dry Eyes) losartan 50 mg tablet 50 mg PO QDAY rosuvastatin 5 mg tablet 5 mg PO QDAY amlodipine 10 mg tablet 10 mg PO QDAY allopurinol 100 MG tablet 100 mg PO DAILYCM Patient Comments: GOUT metoprolol succinate 100 MG tablet extended release 24 hr 100 mg PO DAILY aspirin 81 MG tablet,chewable 81 mg PO DAILY calcium carbonate-vitamin D3 1 EACH tablet 1 ea PO DAILY insulin aspart U-100 100 unit/mL (3 mL) insulin pen 7 unit subcut QAC Rx Instructions: 8 units AM, 3 units, 6 units dinner Primary Care Provider: Siena Warren Referrals: Siena Warren MD [Primary Care Provider] - Print Language: Moldovan Disposition Disposition: Acute Care Hospital [facility]
[2025-06-14] MEDS: 0.9% Normal Saline (1000mL) 1,000 ML 1000 ML IV (08:51)
--- OUTSIDE RECORDS SUMMARY | 2025-06-14 08:54 | XMS RPT_ITS | CCD ---
Author Organization [facility] Care Team Providers Care Instrument Lens Grinder Apprentice Name Role Phone Anju Pearce MD Primary Care Provider Majercak (Pharmacist), Mignon Unavailable Un available Dr. Anju Pearce Primary Care Provider Dr. Anju Pearce Referring Provider Dr. Latha Bar Attending Provider [phone] Anju Pearce MD Primary Care Provider Kaylee (Pharmacist), Mignon Unavailable Un available Dr. Anju Pearce Primary Care Provider Dr. Anju Pearce Referring Provider Dr. Latha Bar Attending Provider Anju Pearce MD Primary Care Provider Kaylee (Pharmacist), Mignon Unavailable Un available Dr. Anju Pearce Primary Care Provider Dr. Anju Pearce Referring Provider RANDY Betancourt Attending Provider [facility], Keiry Unavailable Anju Pearce MD Primary Care Provider Ryan CIVIL CAD TECH.BRICK CLEANER, Ishmael Unavailable Bairon CIVIL CAD TECH.EVENTS ASSISTANT, Iesha Unavailable Bairon CIVIL CAD TECH.EVENTS ASSISTANT, Iesha Unavailable Bairon CIVIL CAD TECH.EVENTS ASSISTANT, Iesha Unavailable Davis CIVIL CAD TECH.BRICK CLEANER, Ishmael Unavailable Davis CIVIL CAD TECH.BRICK CLEANER, Ishmael Unavailable Kelvin RIVERA, Dr. Anju Mcdonald Primary Care Provider Russell MOLINA, Dr. Costa Attending Provider Dr. Igor Wells DO Emergency Provider Kelvin RIVERA, Dr. Anju Mcdonald Referring Provider [phone] Marika Brown Attending Provider Harris Kessler Attending Unavailable Talampas, Anju D Primary Care Unavailable Marika Brown Attending Unavail able Marika Brown Referring Unavail able Talampas, Anju D Primary Care Unavailable Igor Wells Attending Unavailable Talampas, Anju D Primary Care Unavailable Talampas, Anju D Referring Unavailable Marika Brown Attending Unavail able Talampas, Anju D Primary Care Unavailable Talampas, Anju D Primary Care Unavailable Talampas, Anju D Referring Unavailable Marika Brown Attending Unavail able TALAMPAS, ANJU D Primary Care Unavailable ANGLINCARIDAD Attending Unavailable DAVIS, ISHMAEL Attending Unavailable ANGLIN, CARIDAD Referring Unavailable TALAMPAS, ANJU D Primary Care Unavailable TALAMPAS, ANJU D Primary Care Unavailable DAVIS, ISHMAEL Referring Unavailable DAVIS, ISHMAEL Attending Unavailable TALAMPAS, ANJU D Primary Care Unavailable DAVIS, ISHMAEL Referring Unavailable TALAMPAS, ANJU D Primary Care Unavailable CLEMENT CORTES Attending Unavailable TALAMPAS, ANJU D Primary Care Unavailable ANGLIN, CARIDAD Referring Unavailable TALAMPAS, ANJU D Primary Care Unavailable DAVIS, ISHMAEL Referring Unavailable TALAMPAS, ANJU D Referring Unavailable TALAMPAS, ANJU D Primary Care Unavailable TALAMPAS, ANJU D Primary Care Unavailable DAVIS, ISHMAEL Referring Unavailable ANGLIN, CARIDAD Referring Unavailable TALAMPAS, ANJU D Primary Care Unavailable TALAMPAS, ANJU D Primary Care Unavailable DAVIS, ISHMAEL Attending Unavailable TALAMPAS, ANJU D Attending Unavailable TALAMPAS, ANJU D Primary Care Unavailable Allergies Allergy Classification Reported Allergen(s) Allergy Type Date of Onset Reaction(s) Facility (20 sources) Codeine; Translations: [CODEINE] Drug Allergy 08-31-20 05 Vomiting [facility] Work Phone: (2 sources) HMG-CoA reductase inhibitor; Translations: [FFNOQMU-SHP-LGT REDUCTASE INHIBITORS] Propensity to adverse reactions 05-25-20 09 Intolerance [facility] Work Phone: (20 sources) predniSONE; Translations: [PREDNISONE] Drug Allergy 09-05-20 12 Vomiting [facility] (20 sources) Sulfamethoxazole / Trimethoprim; Translations: [SULFAMETHOXAZOLE-T RIMETHOPRIM] Drug Allergy 06-10-20 08 Vomiting [facility] (20 sources) traMADol; Translations: [TRAMADOL HCL] Drug Allergy 01-18-20 status another imaging modality such as CT angiography may be beneficial in this setting. RIGHT SIDE Internal carotid artery: 40-59% stenosis. Vertebral artery: Patent and antegrade flow noted. LEFT SIDE Internal carotid artery: 20-39% stenosis. Vertebral artery: Patent and antegrade flow noted. Lower EXT TODD: NA Palmar Arch: NA Vein Mapping: NA Dental Clearance: NA CT Chest: 01/05/2020: IMPRESSION: Thoracic aorta is within normal limits. Widely scattered tiny nodules measuring 4 mm or less. ?If clinically indicated, follow-up in one year could be considered. Lobular contour to the kidneys making it difficult to exclude mass lesion. ?Ultrasound is recommended. ?There is a punctate nonobstructive right renal calculus. Incidental Finding: ?No follow-up imaging for this/these incidentally detected lung nodule(s) is recommended. If there are risk factors for lung malignancy, a follow-up chest CT exam could be obtained in 12 months. Medications: Blood thinners: Patient is on following blood thinners: Aspirin -Yes, dose 81 mg, stopped No, date:DSO Plavix - Yes, dose 75 mg, stopped Yes, date:01/02/2020 Brilinta 180 MG last dose given on 01/03/2020 Beta Shravan: Last dose of beta shravan taken: DOS Tylenol 1000 mg DOS: yes Neurontin 200 mg DOS: No ISABELLA/ARB: Stop 24 hours preop No Last dose date NA Steroids: No Chronic Immunosuppressive drugs: No Heparin stop time addressed: Yes, 2 hrs prior Implantable Device: No NA Turned off date: NA Perioperative Transfusion risk STS Risk Factors: Advanced age Yes, 84 Preoperative anemia No Non-CABG surgery No Preoperative anticoagulation Yes, PLAVIX AND BRILINTA Clotting abnormalities No Female gender Yes Small body habitus No Renal insufficiency Yes IDDM Yes Sepsis No Liver disease No Post-operative Wound Healing - Vest recommended Yes (Yes to any one of the below requires a post thorax vest) Risk Factors: Obesity Yes DM Yes Renal Dx Yes COPD No Bilateral ZAK TBD CONSIDER PRAVENA: Yes Dietitian consultation: Yes Drinks provided (outpatient setting): No CLEARANCES NEEDED Pulmonary: No Hematology: No Nephrology Yes Vascular surgery No Other No Molly Mullen APRN.CNP Normal [facility] CONSULT PROG HNO ID: [id number] Author: Molly Harkins) DAYANA Mullen Service: Cardiovascular Surgery Author Type: Nurse Practitioner Type: Consult Progress Note Filed: 01/06/2020 1:31 PM Note Text: CARDIOTHORACIC SURGERY POSTOP PROGRESS NOTE SERVICE DATE: 01/06/2020 SERVICE TIME: 12:23 PM Subjective S/P SURGERY: Procedure(s) (LRB): DATE OF SURGERY: 01/09/2020 LOS: 3 HPI: This is a 84 years old woman who was transferred from [facility] after presenting with resting chest pain on 01/03/2020. Patient was recently treated with amoxicillin on 12/30 for upper respiratory illness/bronchitis. She reports persistent coughing and some mild shortness of breath. About 24 hrs prior to the ED, she started to have CP, for which she describes it as substernal with radiation to both arms, with using albuterol inhaler making the pain much worse. In ED, EKG showed inferior elevation with Q waves in V3 and aVF with some reciprocal depression in the high lateral leads. She also had positive troponin leak of 4.6 ( peaked at 45.8 at a later time), STEMI protocol was activated in [place] and patient was given Hep Gtt and Brilinta prior undergoing HC. HC revealed severe MV CAD. Echo performed in [place] on showed: Normal LV size with moderate segmental systolic dysfunction, EF 30%. 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 There is also a 2+MR (no valvular mechanism mentioned) noted without other valvular lesions mentioned. She was recommended to be transferred to [facility] for CABG evaluation. 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 She also has an intracranial meningioma s/p gamma knife (this was dx in 10/2008 via MRI to evaluate DZ. GKRS was 08/14/2013), and follows physician up at [facility] with surveillance brain scan now tapered down to every 4 years as the size of the meningioma has been reducing. She is a lifelong nonsmoker without no known COPD, no CHF or cardiac arrhythmia and known to patient. She denies recurrence MO since 32 yo ago and has not had any hospitalization related to CHF or arrhythmia. She denies N/V, diaphoresis, chest palpitation, orthopnea, paroxysmal nocturnal dyspnea, lower extremity edema, presyncope, syncope. She claims to be an active person going to gym 3 times a week. But did noted some SOB recently with some elements of URI. Denies DVT or PE, bleeding or clotting disorder, COPD, liver disease, PAD/PVD, or cancers. FH:+CAD in both parents, both from [place] in 70-80s. SH: lifelong non smoker, no drug/etoh use. INTERVAL EVENTS / PERTINENT ROS: patient is visited today while she rests in bed. Continue receiving heparin drip while undergoing Plavix and Brilinta wash out. Confirmed last dose of Brilinta was and last dose of Plavix was 01/02. Her images of HC and CT chest was reviewed this AM in heart team with consensus recommendation of surgical revascularization after completion of Brilinta and Plavix washout. Patient denies active chest pain and is very willing to cooperate with the team for the upcoming recommendations. Objective Admission Weight: 73.3 kg (161 lb 9.6 oz) BP 121/63 Pulse 80 Temp 36.7 ?C (98.1 ?F) (Oral) Resp 18 Wt 76.5 kg (168 lb 10.4 oz) SpO2 98% BMI 29.88 kg/m? Body surface area is 1.84 meters squared. Min/Max/Average Temperature AND Blood Pressure: Temp (24hrs), Av.7 ?C (98 ?F), Min:36.5 ?C (97.7 ?F), Max:36.7 ?C (98.1 ?F) Systolic (24hrs), Av , Min:103 , Max:128 Diastolic (24hrs), Av, Min:46, Max:76 No intake or output data in the 24 hours ending 01/06/20 1223 TELEMETRY: normal sinus rhythm PHYSICAL EXAM: General Appearance: well developed and no distress Skin: warm and dry Neck: no JVD, no carotid bruits and thyroid not palpable Lungs: wheezes and respiratory effort: normal, on RA Heart: regular rhythm, S1, S2 normal and no murmur Peripheral Vascular/Arteries: pulses intact and radial +2 Abdomen: soft, non-tender and bowel sounds present Genitourinary: voiding without difficulty Musculoskeletal: no deformities Neurologic/Psychiatric: oriented to time, place and person, 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 with 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 on the left lower leg and steady gait Extremities: normal exam of the extremities and no edema Lines, Drains, and Airways Line Peripheral 01/03/20 1849 Admission to Hospital Short Left Forearm 20 Gauge 2 days Peripheral 01/04/20 1618 Short Right Antecubital 20 Gauge 1 day DATA: Diagnostic tests reviewed for today's visit: Significant Lab Results: reviewed Cardiac Catheterization Chest CT Scan ECHO US Carotid Recent Labs 01/06/20 0545 01/05/20 0354 01/04/20 1615 01/04/20 0915 01/03/20 2355 01/03/20 1835 01/03/20 1834 01/03/20 1825 HBA1C -- -- -- -- -- -- -- -- -- 8.4* -- RBC 3.56* 3.98 -- -- -- 4.03 -- 4.31 < > -- -- WBC 9.05 11.82* -- -- -- 11.96* -- 10.82* < > -- -- HB 10.9* 12.0 -- -- -- 12.4 -- 13.0 < > -- -- HCT 32.7* 35.9 -- -- -- 36.0 -- 38.4 < > -- -- PLT 301 335 -- -- -- 333 -- 315 < > -- -- INR -- -- -- -- -- -- -- 0.94 -- -- -- APTT 56.7* 60.8* 53.3* 53.2* < > -- -- 22.3* -- -- -- NA 139 137 -- 134* -- 134* < > -- -- -- -- K 3.7 3.2* -- 4.2 -- 4.5 < > -- -- -- -- CHLOR 111* 106 -- 103 -- 105 < > -- -- -- -- CO2 20* 23 -- 21 -- 20* < > -- -- -- -- BUN 48* 46* -- 38* -- 37* < > -- -- -- -- CREAT 1.87* 2.16* -- 1.51* -- 1.43* < > -- -- -- -- GLUC 148* 145* -- 284* -- 202* < > -- -- -- -- CA 8.2* 8.6 -- 9.0 -- 8.8 < > -- -- -- -- P 3.4 -- -- 3.0 -- -- -- -- -- -- -- ANION 12 11 -- 14 -- 14 < > -- -- -- -- MRSA -- -- -- -- -- -- -- -- -- -- No MRSA detected. < > = values in this interval not displayed. Recent Labs 01/04/20 1615 UPROT 65.5* STS risk score: STS Adult Cardiac Surgery Database Version 2.9 RISK SCORES Procedure: Isolated CAB CALCULATE Risk of Mortality: 8.013% Renal Failure: 11.264% Permanent Stroke: 5.263% Prolonged Ventilation: 20.932% DSW Infection: 0.360% Reoperation: 2.741% Morbidity or Mortality: 33.832% Short Length of Stay: 10.129% Long Length of Stay: 18.230% Assessment/Plan Active Problems: ACS (acute coronary syndrome) (HCC) POA: Yes - Currently chest pain-free -Continue hold Plavix, need Plavix and Brilinta washout for 5-7 days - conference: + Surgical disease, recommend CABG after Plavix, Brilinta washout, early OR 01/08. -updated with STS risk score: 8% - work-up completed: Carotid ultrasound, CT chest, renal consultation - will continue review with Dr. Ortiz regarding the work-up findings. Tests/Labs Ordered: 1. None SIGNATURE: Molly Mullen APRN.CNP PATIENT NAME: Concha Woodward DATE: January 06, 2020 TIME: 12:23 PM PAGER/CONTACT #:[phone] ETX [id number] Normal [facility] CONSULT PROG HNO ID: [id number] Author: Nettie Harkins) DAYANA Cheng Service: Cardiovascular Disease Author Type: Nurse Practitioner Type: Consult Progress Note Filed: 01/06/2020 11:42 AM Note Text: CARDIOLOGY CONSULT PROGRESS NOTE CARDIOLOGY ATTENDING: Dr. Phillips INTERVAL HISTORY: History of present illness copied and updated 84 year old female PMH T2DM, CAD s/p PCI 30 years ago, CVA on Plavix who was admitted for coronary artery bypass graft eval after presenting as a STEMI to [place]. ? She had been having URI sxs for the last week and was being treated with a 10 day course of amoxicillin. She had associated dry cough and intermittent SOB. Over the last 3 days she's been having bilateral arm pain, that radiated to her chest. She described it as a pressure. She presented to the [place] ED. EKG done in the emergency room revealed Q waves in III and aVF along with ST elevation. It was felt that patient was presenting late with acute ST elevation MO but due to ongoing chest pain that was about 2/10 in intensity she was evaluated and brought emergently to the cardiac Grooving [facility] for coronary angiography. Coronary angiography revealed multivessel coronary artery disease with MARTIN-3 flow in all the vessels and she was transferred to [facility] for CABG evaluation. Of note, she takes Plavix at home for her hx CVA and did receive Brilinta in the ED . Transthoracic echocardiogram done at [place] showed left ventricular ejection fraction of 30%, DWMA, no valvular disease. She was transferred to telemetry floor on 01/04/2020, hernias thoracic surgery on consult PERTINENT ROS: Patient denies chest pain, shortness of breath, edema, dizziness or near-syncope MEDICATIONS: Current Facility-Administered Medications Medication Dose Route Frequency - carvedilol 6.25 mg tab(s) (COREG) 6.25 mg ORAL BID w MEALS - albuterol 2.5 mg /3 mL (0.083 %) 2.5 mg (PROVENTIL) 2.5 mg INHALATION q 4 H PRN - amLODIPine 10 mg tab(s) (NORVASC) 10 mg ORAL DAILY - allopurinol 100 mg tab(s) (ZYLOPRIM) 100 mg ORAL DAILY - aspirin 81 mg chewable tab(s) 81 mg ORAL DAILY - nitroglycerin sublingual 0.4 mg tab(s) (NITROQUICK) 0.4 mg SUBLINGUAL PRN - potassium chloride ER 20-40 mEq tab(s) (K-DUR, KLOR-CON) 20-40 mEq ORAL/FEEDING TUBE PRN Or - potassium chloride iv piggyback 20 mEq/100 mL 20 mEq INTRAVENOUS PRN - magnesium sulfate in water 2 g in sterile water 50 ml 2 g INTRAVENOUS PRN - sodium phosphate 45 mmol in NaCl 0.9% 250 mL 45 mmol INTRAVENOUS PRN - calcium gluconate 4 g in NaCl 0.9% 250 mL 4 g INTRAVENOUS PRN - heparin iv infusion (LOW DOSE ACS/NOMOGRAM) 25,000 units in NaCl 0.45% 250 mL PREMIX 0-3,000 Units/hr INTRAVENOUS CONTINUOUS And - heparin RATE CHANGE bolus 1,000-4,000 Units for subtherapeutic aptt results 1,000-4,000 Units INTRAVENOUS PRN - dextrose 40 % 15 g 15 g ORAL PRN Or - glucagon 1 mg injection (GLUCAGEN) 1 mg INTRAMUSCULAR PRN Or - dextrose 50% in water 25 mL syringe 12.5 g INTRAVENOUS PRN - NaCl 0.9% 3-5 mL 3-5 mL INTRAVENOUS q 12 H - atorvastatin 10 mg tab(s) (LIPITOR) 10 mg ORAL AT BEDTIME - ezetimibe 10 mg tab(s) (ZETIA) 10 mg ORAL DAILY - mupirocin 2 % ointment (BACTROBAN) TOPICAL TID - folic acid 1 mg tab(s) 1 mg ORAL DAILY - ferrous sulfate 325 mg tab(s) 325 mg ORAL BID w MEALS - senna-docusate 8.6-50 mg 1 tablet (SENNA-S) 1 tablet ORAL BID - ascorbic acid (vitamin C) 500 mg tab(s) (VITAMIN C) 500 mg ORAL BID - insulin lispro 0-10 Units pen (rapid acting) (HumaLOG KWIKPEN) 0-10 Units SUBCUTANEOUS w MEALS - insulin glargine 12 Units pen (long acting) (LANTUS SOLOSTAR, BASAGLAR KWIKPEN) 12 Units SUBCUTANEOUS DAILY (8 AM) - insulin lispro 8 Units pen (rapid acting) (HumaLOG KWIKPEN) 8 Units SUBCUTANEOUS w MEALS - [MAR Hold due to Transfer] lisinopril 20 mg tab(s) (ZESTRIL, PRINIVIL) 20 mg ORAL DAILY PHYSICAL EXAM: Vital Signs 01/06/20 0032 01/06/20 0532 01/06/20 0535 01/06/20 0816 BP: 122/55 128/59 (!) 112/49 Pulse: 73 70 67 Resp: 17 18 18 Temp: 36.7 ?C (98.1 ?F) 36.7 ?C (98.1 ?F) 36.7 ?C (98.1 ?F) TempSrc: Oral Temporal Oral SpO2: 99% 99% 99% Weight: 76.5 kg (168 lb 10.4 oz) Temp (24hrs), Av.5 ?C (97.7 ?F), Min:36.3 ?C (97.3 ?F), Max:36.8 ?C (98.2 ?F) Intake/Output: No intake or output data in the 24 hours ending 01/06/20 1138 Oxygen therapy: Room air Gen: AANDO x 3 no acute distress Neck: No JVD Cardiac: Regular rate and rhythm Resp: Clear and equal bilateral Abd: Obese Soft, non-tender. Bowel sounds normal. Ext: no edema, moves all extremities with no apparent weakness Tele: Not on telemetry Labs: No results found for this basename: CK:3,MB:3,MBP:3,CKMBP:3 ,TROPT:3 Recent Labs 01/06/20 0545 01/05/20 0354 01/04/20 1615 01/03/20 2355 01/03/20 1835 WBC 9.05 11.82* -- -- 11.96* 10.82* HB 10.9* 12.0 -- -- 12.4 13.0 HCT 32.7* 35.9 -- -- 36.0 38.4 PLT 301 335 -- -- 333 315 INR -- -- -- -- -- 0.94 APTT 56.7* 60.8* 53.3* < > -- 22.3* < > = values in this interval not displayed. Recent Labs 01/06/20 0545 01/05/20 0354 01/04/20 0915 NA 139 137 134* K 3.7 3.2* 4.2 CHLOR 111* 106 103 CO2 20* 23 21 BUN 48* 46* 38* CREAT 1.87* 2.16* 1.51* GLUC 148* 145* 284* Cholesterol, Total 208 01/03/2020 HDL Cholesterol 42 01/03/2020 LDL Chol, Ben 99 01/03/2020 ASSESSMENT AND PLAN: 1. Acute coronary syndrome Multivessel disease awaiting coronary artery bypass graft surgery evaluation, patient received Brilinta therapy on 01/03/2020, had been on Plavix prior for history of CVA. 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 Continue amlodipine, continue beta shravan Cardiothoracic surgery on consult tentative surgery date is this Sunday 6. Currently on heparin drip. 2 history CVA 3. Hypertension: Stable on current treatment no change 4. Diabetes: By inpatient medical team, endocrinology on consult A1c 8.4 5. Hyperlipidemia Started on low-dose dose statin therapy, or myalgias the past, denying complaints with current dose 6. Systolic heart failure: Patient euvolemic, asymptomatic Continue beta shravan, Isabella on hold secondary to SHA Would like to resume at the guidance of nephrology, even after CABG. 7. Carotid stenosis: Management by CT surgery Patient is on heparin drip, aspirin and statin Planning: General cardiology will sign off at this time SIGNATURE:Nettie Cheng APRN.EVENTS ASSISTANT PAGER: DATE / TIME of SERVICE: January 05, 2020 11:13 AM This note is not final until Authenticated by responsible provider. Normal [facility] Hemogram/Diffon 01-06-2020 Abs Immature Grans 0.08 thou/cmm High 0.00-0.05 [facility] [employer] [facility] Comment on above: Performed By: #### T ROP #### [place] [address] Abs Neut (ANC) 4.02 thou/cmm Normal 1.56-6.13 [facility] Comment on above: Performed By: #### T ROP #### [facility] [address], [place] [address] Abs. Baso 0.03 thou/cmm Normal 0.01-0.08 [facility] Comment on above: Performed By: #### T ROP #### [facility] [address], [place] [address] Abs. Bledsoe 0.85 thou/cmm High 0.27-0.70 [facility] Comment on above: Performed By: #### T ROP #### [facility] [address] [place], [place] [address] Basophils/100 WBC (Bld) 0.3 % Normal [facility] Comment on above: Performed By: #### T ROP #### [facility] [address], [place] [address] Eosinophils (Bld) [#/Vol] 0.11 thou/cmm Normal 0.00-0.31 [facility] Comment on above: Performed By: #### T ROP #### [facility] [address], [place] [address] Eosinophils/100 WBC (Bld) 1.2 % Normal [facility] Comment on above: Performed By: #### T ROP #### [facility] [address], [place] [address] Immature Grans 0.90 % Normal [facility] Comment on above: Performed By: #### T ROP #### [facility] [address], [place] [address] Lymphocytes (Bld) [#/Vol] 3.96 thou/cmm High 1.18-3.74 [facility] Comment on above: Performed By: #### T ROP #### [facility] [address] [place], [place] [address] Lymphocytes/100 WBC (Bld) 43.8 % Normal [facility] Comment on above: Performed By: #### T ROP #### [facility] [address], [place] [address] Monocytes/100 WBC (Bld) 9.4 % Normal [facility] Comment on above: Performed By: #### T ROP #### [facility] [address] [place] [address] Seg Neutrophil 44.4 % Normal [facility] Comment on above: Performed By: #### T ROP #### [facility] [address] [place] [address] Erythrocyte distribution width (RBC) [Ratio] 13.7 % Normal 11.7-14.4 [facility] Comment on above: Performed By: #### T ROP #### [facility] [address] [place] [address] Hematocrit (Bld) [Volume fraction] 32.7 % Low 34.1-44.9 [facility] Comment on above: Performed By: #### T ROP #### [facility] [address] [place] [address] Hemoglobin (Bld) [Mass/Vol] 10.9 g/dL Low 11.2-15.7 [facility] Comment on above: Performed By: #### T ROP #### [facility] [address] [place] [address] MCH (RBC) [Entitic mass] 30.6 pg Normal 25.6-32.2 [facility] Comment on above: Performed By: #### T ROP #### [facility] [address] [place] [address] MCHC (RBC) [Mass/Vol] 33.3 % Normal 31.6-34.8 [facility] Comment on above: Performed By: #### T ROP #### [facility] [address] [place] [address] MCV (RBC) [Entitic vol] 91.9 fL Normal 79.4-94.8 [facility] Comment on above: Performed By: #### T ROP #### [facility] [address] [place] [address] Platelet mean volume (Bld) [Entitic vol] 11.6 fL Normal 9.4-12.3 [facility] Comment on above: Performed By: #### T ROP #### [facility] [address] [place], [place] [address] Platelets (Bld) [#/Vol] 301 thou/cmm Normal 182-369 [facility] Comment on above: Performed By: #### T ROP #### [facility] [address] [place], [place] [address] RBC (Bld) [#/Vol] 3.56 mil/cmm Low 3.93-5.22 [facility] Comment on above: Performed By: #### T ROP #### [facility] [address], [place] [address] RDW SD 45.9 fl Normal 36.4-46.3 [facility] Comment on above: Performed By: #### T ROP #### [facility] [address] [place], [place] [address] WBC (Bld) [#/Vol] 9.05 thou/cmm Normal 3.98-10.[address] [facility] Comment on above: Performed By: #### T ROP #### [facility] [address] [place] [id number] PROGRESSon 01-06-2020 PROGRESS HNO ID: [id number] Author: Eric Ortiz Service: Thoracic Surgery Author Type: Physician Type: Progress Notes Filed: 01/06/2020 4:58 PM Note Text: Asked to assume cardiac surgical care by Chet. Cath films reviewed. W/U eval in progress and patient seen briefly and legs not so great looking at 1st glance. Informed patient she is tentatively on OR schedule for Sunday AM. P-will see again in AM with CARDIOLOGY SPECIALIST. Normal [facility] PROGRESS HNO ID: [id number] Author: Cesar Burroughs Service: Nephrology Author Type: Physician Type: Progress Notes Filed: 01/06/2020 2:03 PM Note Text: CONSULT PROGRESS NOTE NEPHROLOGY SERVICE Subjective INTERVAL HISTORY: We are seeing the patient for issues with SHA and New onset CHF Cr is worse LUDY likely SOB resolved No edema All labs / data/ chart and interval events are noted BP has been stable No issues with urine output Lytes are better No s/o CHF Responding to current rx at this time No other new issues No change in the PFSH at this time ROS is (-) unless mentioned MEDICATIONS: Current Facility-Administered Medications Medication Dose Route Frequency - carvedilol 6.25 mg tab(s) (COREG) 6.25 mg ORAL BID w MEALS - albuterol 2.5 mg /3 mL (0.083 %) 2.5 mg (PROVENTIL) 2.5 mg INHALATION q 4 H PRN - amLODIPine 10 mg tab(s) (NORVASC) 10 mg ORAL DAILY - allopurinol 100 mg tab(s) (ZYLOPRIM) 100 mg ORAL DAILY - aspirin 81 mg chewable tab(s) 81 mg ORAL DAILY - nitroglycerin sublingual 0.4 mg tab(s) (NITROQUICK) 0.4 mg SUBLINGUAL PRN - potassium chloride ER 20-40 mEq tab(s) (K-DUR, KLOR-CON) 20-40 mEq ORAL/FEEDING TUBE PRN Or - potassium chloride iv piggyback 20 mEq/100 mL 20 mEq INTRAVENOUS PRN - magnesium sulfate in water 2 g in sterile water 50 ml 2 g INTRAVENOUS PRN - sodium phosphate 45 mmol in NaCl 0.9% 250 mL 45 mmol INTRAVENOUS PRN - calcium gluconate 4 g in NaCl 0.9% 250 mL 4 g INTRAVENOUS PRN - heparin iv infusion (LOW DOSE ACS/NOMOGRAM) 25,000 units in NaCl 0.45% 250 mL PREMIX 0-3,000 Units/hr INTRAVENOUS CONTINUOUS And - heparin RATE CHANGE bolus 1,000-4,000 Units for subtherapeutic aptt results 1,000-4,000 Units INTRAVENOUS PRN - dextrose 40 % 15 g 15 g ORAL PRN Or - glucagon 1 mg injection (GLUCAGEN) 1 mg INTRAMUSCULAR PRN Or - dextrose 50% in water 25 mL syringe 12.5 g INTRAVENOUS PRN - NaCl 0.9% 3-5 mL 3-5 mL INTRAVENOUS q 12 H - atorvastatin 10 mg tab(s) (LIPITOR) 10 mg ORAL AT BEDTIME - ezetimibe 10 mg tab(s) (ZETIA) 10 mg ORAL DAILY - mupirocin 2 % ointment (BACTROBAN) TOPICAL TID - folic acid 1 mg tab(s) 1 mg ORAL DAILY - ferrous sulfate 325 mg tab(s) 325 mg ORAL BID w MEALS - senna-docusate 8.6-50 mg 1 tablet (SENNA-S) 1 tablet ORAL BID - ascorbic acid (vitamin C) 500 mg tab(s) (VITAMIN C) 500 mg ORAL BID - insulin lispro 0-10 Units pen (rapid acting) (HumaLOG KWIKPEN) 0-10 Units SUBCUTANEOUS w MEALS - insulin glargine 12 Units pen (long acting) (LANTUS SOLOSTAR, BASAGLAR KWIKPEN) 12 Units SUBCUTANEOUS DAILY (8 AM) - insulin lispro 8 Units pen (rapid acting) (HumaLOG KWIKPEN) 8 Units SUBCUTANEOUS w MEALS - [MAR Hold due to Transfer] lisinopril 20 mg tab(s) (ZESTRIL, PRINIVIL) 20 mg ORAL DAILY PHYSICAL EXAM: BP 121/63 Pulse 80 Temp 36.7 ?C (98.1 ?F) (Oral) Resp 18 Ht 160 cm (5' 3) Wt 76.5 kg (168 lb 10.4 oz) SpO2 98% BMI 29.88 kg/m? No intake or output data in the 24 hours ending 01/06/20 1402 . HEAD, EYES, ENT: No pallor. No cyanosis. No icterus. Mucous membranes of mouth were moist. NECK: Otherwise supple. Hard for me to see a jugular vein distention elevation. LUNGS: Clear to auscultation. No rales. CARDIOVASCULAR: S1, S2. No rubs or gallops. ABDOMEN: Soft, obese, nontender. Bowel sounds are heard. EXTREMITIES: No peripheral edema. SKIN: Otherwise warm and moist. PSYCH: Normal affect. Does not appear to be anxious, depressed, or agitated. ? DATA: Diagnostic tests reviewed for today's visit: Recent Labs 01/06/20 0545 CO2 20* Specific [place], Ur Date Value Ref Range Status 12/25/2019 1.012 1.005 - 1.030 Final Glucose, Urine Date Value Ref Range Status 12/25/2019 Negative Negative mg/dL Final Bilirubin, Urine Date Value Ref Range Status 12/25/2019 Negative Negative Final Ketones, Urine Date Value Ref Range Status 12/25/2019 Negative Negative Final Hemoglobin/Blood,Ur Date Value Ref Range Status 12/25/2019 Negative Negative Final Protein, Urine Date Value Ref Range Status 01/04/2020 65.5 (H) 0.0 - 11.9 mg/dL Final Urobilinogen, Urine Date Value Ref Range Status 07/01/2012 0.2 Normal (<1.1) EU Final Nitrites Date Value Ref Range Status 12/25/2019 Negative Negative Final Leukocytes Date Value Ref Range Status 07/01/2012 trace Neg Final WBC, Urine Date Value Ref Range Status 12/25/2019 0-5 0 - 5 /HPF Final Recent Labs 01/06/20 0545 01/05/20 0354 01/04/20 0915 01/03/20 2355 NA 139 137 134* 134* K 3.7 3.2* 4.2 4.5 CHLOR 111* 106 103 105 CO2 20* 23 21 20* BUN 48* 46* 38* 37* CREAT 1.87* 2.16* 1.51* 1.43* GLUC 148* 145* 284* 202* ANION 12 11 14 14 CA 8.2* 8.6 9.0 8.8 P 3.4 -- 3.0 -- Recent Labs 01/06/20 0545 01/05/20 0354 01/03/20 2355 WBC 9.05 11.82* 11.96* HB 10.9* 12.0 12.4 HCT 32.7* 35.9 36.0 PLT 301 335 333 Assessment/Plan 84 year old female who presents with IMPRESSION: SHA +ATN from LUDY CKD 3 STEMI Acute systolic CHF 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 Reccomendations Cr is better CIIN likely Dc ISABELLA-I Back off on diuresis for 24 h More, euvolemia still Follow the hco3 ( will improve as the SHA resolves ) With the ongoing SHA 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 Will not recommend CABG until cr settles PRN diureis ok , if SOB or volume issues develop Avoid all renal toxins Avoid BP shifts repalce K Trend the cr Avoid all renal toxins We will follow closely Normal [facility] PROGRESS HNO ID: [id number] Author: Chandan Tavarez Service: Hospital Medicine Author Type: Physician Type: Progress Notes Filed: 01/06/2020 10:14 AM Note Text: DEPARTMENT OF HOSPITAL MEDICINE PROGRESS NOTE SERVICE DATE: 01/06/2020 SERVICE TIME: 10:06 AM Hospital Medicine/Primary Attending: Chandan Tavarez MD NIGHT AND WEEKEND COVERAGE: From 7am - 7pm, please call [phone] After 7pm, please call cross cover pager #[phone] Subjective INTERVAL HPI: Reports feeling better. Denied fever and chills. No chest pain. Noted good appetite. MEDICATIONS: Reviewed Objective PHYSICAL EXAM: BP 112/49 Pulse 67 Temp (Src) 98.1 (Oral) Resp 18 Wt 168 lb 10.4 oz (76.5kg) SpO2 99% O2 Therapy: Room Air Physical Exam Performed GENERAL: Alert, no distress, cooperative SKIN: Skin color, texture, turgor normal. No rashes or lesions. HEAD/SINUSES: No significant findings EYES: PERRLA, EOMI EARS: External ears normal, canals clear NOSE: Nares normal. Septum midline. OROPHARYNX: Lips, mucosa, and tongue normal. Teeth and gums normal. Oropharynx normal. NECK: No jugulovenous distention, No carotid bruits, Carotid pulse normal contour, Supple BACK: Back symmetric, Normal curvature, ROM normal, No CVAT. LUNGS: Lungs clear to auscultation, Good diaphragmatic excursion CARDIAC: Normal S1 and S2; no rubs, murmurs, or gallops ABDOMEN: Abdomen soft, non-tender, BS normal, No masses or organomegaly EXTREMITIES: Extremities normal, no deformities, edema, clubbing or skin discoloration. Good capillary refill., No ulcers NEURO: No Focal neuro deficit PULSES: 2+ radial, 2+ carotid Lines, Drains, and Airways Line Peripheral 01/03/20 1849 Admission to Hospital Short Left Forearm 20 Gauge 2 days Peripheral 01/04/20 1618 Short Right Antecubital 20 Gauge 1 day DATA: Diagnostic tests reviewed for today's visit: Assessment/Plan 1. ACS (acute coronary syndrome) (HCC): Multivessel disease CTS following Continue heparin drip Will await final decision on possible surgical interventions 2. Hypertension Essential: Continue amlodipine, coreg, BP is well controlled 3. Diabetes Mellitus type 2: Good control Continue lantus 12 units QHS On insulin sliding scale 4. Hyperliidemia: On Zetia and statin 5. SHA/CKD: nephro following. Hx of CHF: currently not in exacerbation. Last 2 D Echo in chart noted stage 1 diastolic dysfunction. Medication and Non-Pharmacologic VTE Prophylaxis/Anticoagula nts Anticoagulant AND Antiplatelet Medications (From admission, onward) Start Dose Route Frequency Ordered Stop 01/03/20 1800 aspirin 81 mg chewable tab(s) (Order Panel) 81 mg ORAL DAILY 01/03/20 1759 -- 01/03/20 1800 heparin iv infusion (LOW DOSE ACS/NOMOGRAM) 25,000 units in NaCl 0.45% 250 mL PREMIX (Heparin Infusion + Rate Change Bolus) 0-30 mL/hr 0-3,000 Units/hr INTRAVENOUS CONTINUOUS 01/03/20 1759 -- 01/03/20 1800 vte non-pharmacologic prophylaxis - none indicated ([place], [place]) 01/03/20 1800 vte current anticoag therapy ([place], [place]) 01/03/20 1800 activity - mobilize patient ([place], [place]) VTE Prophylaxis: VTE prophylaxis appropriate Disposition: Home Plan of care discussed with: Patient SIGNATURE: Chandan Tavarez MD PATIENT NAME: Concha Woodward DATE: January 06, 2020 TIME: 10:06 AM PAGER/CONTACT #: [phone] Normal [facility] Renal Panelon 01-06-2020 Creatinine [Mass/Vol] 1.87 mg/dL High 0.51-0.95 [facility] Comment on above: Result Comment: Use of this assay is not recommended for patients undergoing treatment with phenindione, due to the potential for falsely depressed results. Performed By: #### T ROP #### [address] [address] Phosphate [Mass/Vol] 3.4 mg/dL Normal 2.5-4.[address] [facility] Comment on above: Performed By: #### T ROP #### [address] [address] Albumin [Mass/Vol] 2.5 g/dL Low 3.4-5.0 [facility] Comment on above: Performed By: #### T ROP #### [address] [address] Anion gap [Moles/Vol] 12 mmol/L Normal 8-16 [facility] Comment on above: Performed By: #### T ROP #### [address] [address] CO2 [Moles/Vol] 20 mmol/L Low 21-32 [facility] Comment on above: Performed By: #### T ROP #### [address] [address] Urea nitrogen [Mass/Vol] 48 mg/dL High 7-18 [facility] Comment on above: Performed By: #### T ROP #### [facility] [address] [place], [place] [address] Calcium [Mass/Vol] 8.2 mg/dL Low 8.5-10.1 [facility] Comment on above: Performed By: #### T ROP #### [facility] [address] [place], [place] [address] Glucose [Mass/Vol] 148 mg/dL High 70-99 [facility] Comment on above: Performed By: #### T ROP #### [facility] [address] [place], [place] [address] Chloride [Moles/Vol] 111 mmol/L High 98-[address] [facility] Comment on above: Performed By: #### T ROP #### [facility] [address] [place], [place] [address] Potassium [Moles/Vol] 3.7 mmol/L Normal 3.5-5.1 [facility] Comment on above: Performed By: #### T ROP #### [facility] [address] [place], [place] [address] Sodium [Moles/Vol] 139 mmol/L Normal 136-145 [facility] Comment on above: Performed By: #### T ROP #### [facility] [address] [place], [place] [address] ALLIED HEALTHon 01-05-2020 ALLIED HEALTH HNO ID: [id number] Author: Malinda Ochoa) RITA Zurita Service: Cardiac Rehab Author Type: Registered Nurse Type: Allied Health Filed: 01/05/2020 2:47 PM Note Text: CARDIAC REHAB 5 METER WALK TEST SERVICE DATE: 01/05/2020 SERVICE TIME: 1445 ASSESSMENT: 5 Meter Walk Test 5 Meter Walk Test Completed: Yes Trial 1 # of Seconds: 8.28 Trial 1 Assistive Device: IV Pole Trial 2 # of Seconds: 10.38 Trial 2 Assistive Device: IV Pole Trial 3 # of Seconds: 9.71 Trial 3 Assistive Device: IV Pole SIGNATURE: Malinda Zurita RN PATIENT NAME: Concha Woodward DATE: January 05, 2020 TIME: 2:47 PM PAGER/CONTACT #: [phone] Normal [facility] Activated PTTon 01-05-2020 aPTT Coag (Bld) [Time] 60.8 s High 23.0-32.4 [facility] Comment on above: Result Comment: Unfr actionated Heparin Therapeutic Ranges: Standard Heparin Nomogram: 53 to 78 seconds (anti-Xa level of 0.3 to 0.7 U/mL) Low Dose/ACS Nomogram: 49 to 67 seconds (anti-Xa level of 0.2 to 0.5 U/mL) Stroke Treatment Nomogram: 49 to 67 seconds (anti-Xa level of 0.2 to 0.5 U/mL) Note: The APTT therapeutic range has been determined for the current lot of laboratory APTT reagent in use throughout the [facility]. Performed By: #### P T #### [place] [address] Basic Panelon 01-05-2020 Creatinine [Mass/Vol] 2.16 mg/dL High 0.51-0.95 [facility] Comment on above: Result Comment: Use of this assay is not recommended for patients undergoing treatment with phenindione, due to the potential for falsely depressed results. Performed By: #### P T #### [address] [address] Anion gap [Moles/Vol] 11 mmol/L Normal 8-16 [facility] Comment on above: Performed By: #### P T #### [address] [address] CO2 [Moles/Vol] 23 mmol/L Normal 21-32 [facility] Comment on above: Performed By: #### P T #### [address] [address] Glucose [Mass/Vol] 145 mg/dL High 70-99 [facility] Comment on above: Performed By: #### P T #### [address] [address] Urea nitrogen [Mass/Vol] 46 mg/dL High 7-18 [facility] Comment on above: Performed By: #### P T #### [address] [place], [place] [address] Calcium [Mass/Vol] 8.6 mg/dL Normal 8.5-10.1 [facility] Comment on above: Performed By: #### P T #### [facility] [address] [place], [place] [address] Chloride [Moles/Vol] 106 mmol/L Normal 98-[address] [facility] Comment on above: Performed By: #### P T #### [facility] [address] [place], [place] [address] Potassium [Moles/Vol] 3.2 mmol/L Low 3.5-5.1 [facility] Comment on above: Performed By: #### P T #### [facility] [address] [place] [id number] Sodium [Moles/Vol] 137 mmol/L Normal 136-145 [facility] Comment on above: Performed By: #### P T #### [facility] [address] [place] [address] CASE MGT INIT ASSESon 2019 CASE MGT INIT ASS HNO ID: [id number] Author: Patience BlairRn) RITA Christy Service: Care Management Author Type: Registered Nurse Type: Care Mgt Initial Assessment Filed: 01/05/2020 4:05 PM Note Text: CARE MANAGEMENT: ASSESSMENT AND DISCHARGE PLAN SERVICE DATE: January 05, 2020 SERVICE TIME: 4:02 PM PRIMARY CARE PHYSICIAN: Anju Pearce MD ADMISSION STATUS: Inpatient Needs Prior to Discharge: To Be Determined MEDICAL: MEDICARE A AND B 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 Last discharge within 30 days: No Advance Directive: Current Advance Directive: Health Care Power of Vertical Boring Mill Operator In Chart: No Chopper Gun Operator Attempted to Assist with AD Completion: No Unable to Assist Due To:: Other: See Comment(Pt states that she has documents completed at home. ) Health LiteracyHow often do you need to have someone help you when you read instructions, pamphlets, or other written material from your doctor or pharmacy? : 1 - Never How confident are you filling out medical forms by yourself?: 1 - Extremely If Patient scores > 3 on either question, the following interventions were put into place:: Patient did not score > 3 on either question. Baseline Mental Status Prior to this Illness what was the patient's Baseline Mental Status?: Alert AND Oriented Prior to this illness, has anyone described the patient having any of the following behaviors?: Not Applicable Relationship of the informant to the patient:: Self Functional Status: Independent Does Patient Currently Receive Any Community Services or Home Care?: None Equipment Prior to Admission: Cane SOCIAL: Living Arrangements: Home Lives With: Spouse Financial Resources: RetiredPrimary Contact: Extended Emergency Contact Information Primary Emergency Contact: Chele Woodward Address: [address] [place] [address] Relation: Spouse Secondary Emergency Contact: Aristeo Saunders Address: [address] [place] [id number] [place] [address] Mobile Relation: Daughter Supportive Patient Contact:: Yes Social Needs Food insecurity Worry: Patient refused Inability: Patient refused Resources Needed: No Social Needs Financial resource strain: Not very hard Social Needs Transportation needs Medical: Patient refused Non-medical: Patient refused Caregiver AssessmentCaregiver is ready, willing and able to meet the patient's needs as recommended by the inter-professional team:: No Caregiver needed Does the patient have an acute stroke diagnosis, or has the patient had a stroke during this admission?: No Patient's perception of need for this admission: CAD Medication Adherance I am convinced of the importance of my prescription medication: 0 - Agree Mostly I worry that my prescription medication will do more harm than good to me : 0 - Disagree Mostly I feel financially burdened by my [id number] expenses for my prescription medication:: 0 - Disagree Somewhat Risk Score: 0 Patient is categorized as: Low risk < 2 Are you interested in bedside delivery of your medications? No Is Patient Psychosocially Complex?: No ASSESSMENT AND PLAN: Medical Needs: Medical Needs: None Psychosocial Needs: Psychosocial Needs: None FREEDOM OF CHOICE EXPLAINED: POTENTIAL TRANSITION PLANS To Be Determined Spoke with pt at the bedside. 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 Await card surg eval for possible CABG. Will follow clinical progress. SIGNATURE: Patience Christy RN PATIENT NAME: Concha Woodward DATE: January 05, 2020 TIME: 4:02 PM PAGER/CONTACT #: [phone] [facility] CONSULT PROGon 01-05-2020 CONSULT PROG HNO ID: [id number] Author: Nettie Harkins) DAYANA Cheng Service: Cardiovascular Disease Author Type: Nurse Practitioner Type: Consult Progress Note Filed: 01/05/2020 12:24 PM Note Text: CARDIOLOGY CONSULT PROGRESS NOTE CARDIOLOGY ATTENDING: Dr. Phillips INTERVAL HISTORY: History of present illness copied and updated 84 year old female PMH T2DM, CAD s/p PCI 30 years ago, CVA on Plavix who was admitted for coronary artery bypass graft eval after presenting as a STEMI to [place]. ? She had been having URI sxs for the last week and was being treated with a 10 day course of amoxicillin. She had associated dry cough and intermittent SOB. Over the last 3 days she's been having bilateral arm pain, that radiated to her chest. She described it as a pressure. She presented to the [place] ED. EKG done in the emergency room revealed Q waves in III and aVF along with ST elevation. It was felt that patient was presenting late with acute ST elevation MO but due to ongoing chest pain that was about 2/10 in intensity she was evaluated and brought emergently to the cardiac Grooving Machine Operator for coronary angiography. Coronary angiography revealed multivessel coronary artery disease with MARTIN-3 flow in all the vessels and she was transferred to [facility] for CABG evaluation. Of note, she takes Plavix at home for her hx CVA and did receive Brilinta in the ED . Transthoracic echocardiogram done at [place] showed left ventricular ejection fraction of 30%, DWMA, no valvular disease. She was transferred to telemetry floor on 01/04/2020, hernias thoracic surgery on consult PERTINENT ROS: Patient denies chest pain, shortness of breath, edema, dizziness or near-syncope MEDICATIONS: Current Facility-Administered Medications Medication Dose Route Frequency - carvedilol 6.25 mg tab(s) (COREG) 6.25 mg ORAL BID w MEALS - albuterol 2.5 mg /3 mL (0.083 %) 2.5 mg (PROVENTIL) 2.5 mg INHALATION q 4 H PRN - amLODIPine 10 mg tab(s) (NORVASC) 10 mg ORAL DAILY - allopurinol 100 mg tab(s) (ZYLOPRIM) 100 mg ORAL DAILY - aspirin 81 mg chewable tab(s) 81 mg ORAL DAILY - nitroglycerin sublingual 0.4 mg tab(s) (NITROQUICK) 0.4 mg SUBLINGUAL PRN - potassium chloride ER 20-40 mEq tab(s) (K-DUR, KLOR-CON) 20-40 mEq ORAL/FEEDING TUBE PRN Or - potassium chloride iv piggyback 20 mEq/100 mL 20 mEq INTRAVENOUS PRN - magnesium sulfate in water 2 g in sterile water 50 ml 2 g INTRAVENOUS PRN - sodium phosphate 45 mmol in NaCl 0.9% 250 mL 45 mmol INTRAVENOUS PRN - calcium gluconate 4 g in NaCl 0.9% 250 mL 4 g INTRAVENOUS PRN - heparin iv infusion (LOW DOSE ACS/NOMOGRAM) 25,000 units in NaCl 0.45% 250 mL PREMIX 0-3,000 Units/hr INTRAVENOUS CONTINUOUS And - heparin RATE CHANGE bolus 1,000-4,000 Units for subtherapeutic aptt results 1,000-4,000 Units INTRAVENOUS PRN - dextrose 40 % 15 g 15 g ORAL PRN Or - glucagon 1 mg injection (GLUCAGEN) 1 mg INTRAMUSCULAR PRN Or - dextrose 50% in water 25 mL syringe 12.5 g INTRAVENOUS PRN - NaCl 0.9% 3-5 mL 3-5 mL INTRAVENOUS q 12 H - atorvastatin 10 mg tab(s) (LIPITOR) 10 mg ORAL AT BEDTIME - ezetimibe 10 mg tab(s) (ZETIA) 10 mg ORAL DAILY - mupirocin 2 % ointment (BACTROBAN) TOPICAL TID - folic acid 1 mg tab(s) 1 mg ORAL DAILY - ferrous sulfate 325 mg tab(s) 325 mg ORAL BID w MEALS - senna-docusate 8.6-50 mg 1 tablet (SENNA-S) 1 tablet ORAL BID - ascorbic acid (vitamin C) 500 mg tab(s) (VITAMIN C) 500 mg ORAL BID - insulin lispro 0-10 Units pen (rapid acting) (HumaLOG KWIKPEN) 0-10 Units SUBCUTANEOUS w MEALS - insulin glargine 12 Units pen (long acting) (LANTUS SOLOSTAR, BASAGLAR KWIKPEN) 12 Units SUBCUTANEOUS DAILY (8 AM) - insulin lispro 8 Units pen (rapid acting) (HumaLOG KWIKPEN) 8 Units SUBCUTANEOUS w MEALS - furosemide 40 mg tab(s) (LASIX) 40 mg ORAL DAILY - [MAR Hold due to Transfer] lisinopril 20 mg tab(s) (ZESTRIL, PRINIVIL) 20 mg ORAL DAILY PHYSICAL EXAM: Vital Signs 01/05/20 0037 01/05/20 0345 01/05/20 0600 01/05/20 0805 BP: 133/84 135/70 106/59 Pulse: 74 80 69 Resp: 18 16 18 Temp: 36.6 ?C (97.9 ?F) 36.3 ?C (97.3 ?F) 36.6 ?C (97.9 ?F) TempSrc: Oral Oral Oral SpO2: 99% 100% 99% Weight: 73.3 kg (161 lb 9.6 oz) Temp (24hrs), Av.5 ?C (97.7 ?F), Min:36.3 ?C (97.3 ?F), Max:36.8 ?C (98.2 ?F) Intake/Output: No intake or output data in the 24 hours ending 01/05/20 1113 Oxygen therapy: Room air Gen: AANDO x 3 no acute distress Neck: No JVD Cardiac: Regular rate and rhythm Resp: Clear and equal bilateral Abd: Obese Soft, non-tender. Bowel sounds normal. Ext: no edema, moves all extremities with no apparent weakness Tele: Not on telemetry Labs: No results found for this basename: CK:3,MB:3,MBP:3,CKMBP:3 ,TROPT:3 Recent Labs 01/05/20 0354 01/04/20 1615 01/04/20 0915 01/03/20 2355 01/03/20 1835 WBC 11.82* -- -- -- 11.96* 10.82* HB 12.0 -- -- -- 12.4 13.0 HCT 35.9 -- -- -- 36.0 38.4 PLT 335 -- -- -- 333 315 INR -- -- -- -- -- 0.94 APTT 60.8* 53.3* 53.2* < > -- 22.3* < > = values in this interval not displayed. Recent Labs 01/05/20 0354 01/04/20 0915 01/03/20 2355 NA 137 134* 134* K 3.2* 4.2 4.5 CHLOR 106 103 105 CO2 23 21 20* BUN 46* 38* 37* CREAT 2.16* 1.51* 1.43* GLUC 145* 284* 202* Cholesterol, Total 208 01/03/2020 HDL Cholesterol 42 01/03/2020 LDL Chol, Ben 99 01/03/2020 ASSESSMENT AND PLAN: 1. Acute coronary syndrome Multivessel disease awaiting coronary artery bypass graft surgery evaluation, patient received Brilinta therapy on 01/03/2020, had been on Plavix prior for history of CVA. 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 Continue amlodipine, continue beta shravan Cardiothoracic surgery on consult 2 history CVA 3. Hypertension: Stable on current treatment no change 4. Diabetes: By inpatient medical team, endocrinology on consult A1c 8.4 5. Hyperlipidemia Started on low-dose dose statin therapy, or myalgias the past 6. Systolic heart failure: Patient euvolemic, asymptomatic Continue beta shravan, Isabella on hold secondary to SHA Would like to resume at the guidance of nephrology, even after CABG. Planning: General cardiology will continue to follow, awaiting CABG surgical date, due to Brilinta . SIGNATURE:Nettie Cheng APRN.EVENTS ASSISTANT PAGER: DATE / TIME of SERVICE: January 05, 2020 11:13 AM This note is not final until Authenticated by responsible provider. Normal [facility] CONSULT PROG HNO ID: [id number] Author: Ann Echeverria Service: Endocrinology Author Type: Physician Type: Consult Progress Note Filed: 01/05/2020 8:29 PM Note Text: ENDOCRINOLOGY CONSULT PROGRESS NOTE SERVICE DATE: 01/05/2020 SERVICE TIME: 8:40 AM Subjective INTERVAL HPI: followed for DM type 2 on insulin MDI; can not tolerate metformin due to diarrhea; has CAD She was admitted there with chest pain and was found to have coronary artery disease. Patient has history of angioplasty 30 years ago. ?H/o CAD and remote MO now admitted with NSTEMI who is found to have severe MV CAD and ischemic CM with EF 30%, no CHF, in a setting of DM,HTN,HLD, CKD, remote CVA. Regarding diabetes, patient has history of type 2 diabetes for about 5 years. She was initially on metformin for about 2 years, which was stopped because of diarrhea. She was started on NovoLog insulin 3 times a day and then Basaglar was added about a year ago. At home, patient takes Basaglar 9 units every morning and she takes NovoLog 8 units for breakfast and dinner and 6 units for lunch. Her A1c was 7.6 on December 25, now her A1c is 8.4. Patient recently had bronchitis for last 1 week and she was on amoxicillin prior to admission. Patient states her weight has been stable. DIET HEART HEALTHY Recent Labs 01/05/20 0741 01/05/20 0354 01/04/20 2035 01/04/20 1652 01/04/20 0915 01/03/20 2355 GLUC -- 145* -- -- -- 284* -- 202* GLUCOSEMETER 178* -- 151* 168* < > -- < > -- < > = values in this interval not displayed. Current Facility-Administered Medications Medication Dose Route Frequency - carvedilol 6.25 mg tab(s) (COREG) 6.25 mg ORAL BID w MEALS - albuterol 2.5 mg /3 mL (0.083 %) 2.5 mg (PROVENTIL) 2.5 mg INHALATION q 4 H PRN - amLODIPine 10 mg tab(s) (NORVASC) 10 mg ORAL DAILY - allopurinol 100 mg tab(s) (ZYLOPRIM) 100 mg ORAL DAILY - aspirin 81 mg chewable tab(s) 81 mg ORAL DAILY - nitroglycerin sublingual 0.4 mg tab(s) (NITROQUICK) 0.4 mg SUBLINGUAL PRN - potassium chloride ER 20-40 mEq tab(s) (K-DUR, KLOR-CON) 20-40 mEq ORAL/FEEDING TUBE PRN Or - potassium chloride iv piggyback 20 mEq/100 mL 20 mEq INTRAVENOUS PRN - magnesium sulfate in water 2 g in sterile water 50 ml 2 g INTRAVENOUS PRN - sodium phosphate 45 mmol in NaCl 0.9% 250 mL 45 mmol INTRAVENOUS PRN - calcium gluconate 4 g in NaCl 0.9% 250 mL 4 g INTRAVENOUS PRN - heparin iv infusion (LOW DOSE ACS/NOMOGRAM) 25,000 units in NaCl 0.45% 250 mL PREMIX 0-3,000 Units/hr INTRAVENOUS CONTINUOUS And - heparin RATE CHANGE bolus 1,000-4,000 Units for subtherapeutic aptt results 1,000-4,000 Units INTRAVENOUS PRN - dextrose 40 % 15 g 15 g ORAL PRN Or - glucagon 1 mg injection (GLUCAGEN) 1 mg INTRAMUSCULAR PRN Or - dextrose 50% in water 25 mL syringe 12.5 g INTRAVENOUS PRN - NaCl 0.9% 3-5 mL 3-5 mL INTRAVENOUS q 12 H - atorvastatin 10 mg tab(s) (LIPITOR) 10 mg ORAL AT BEDTIME - ezetimibe 10 mg tab(s) (ZETIA) 10 mg ORAL DAILY - mupirocin 2 % ointment (BACTROBAN) TOPICAL TID - folic acid 1 mg tab(s) 1 mg ORAL DAILY - ferrous sulfate 325 mg tab(s) 325 mg ORAL BID w MEALS - senna-docusate 8.6-50 mg 1 tablet (SENNA-S) 1 tablet ORAL BID - ascorbic acid (vitamin C) 500 mg tab(s) (VITAMIN C) 500 mg ORAL BID - insulin lispro 0-10 Units pen (rapid acting) (HumaLOG KWIKPEN) 0-10 Units SUBCUTANEOUS w MEALS - insulin glargine 12 Units pen (long acting) (LANTUS SOLOSTAR, BASAGLAR KWIKPEN) 12 Units SUBCUTANEOUS DAILY (8 AM) - insulin lispro 8 Units pen (rapid acting) (HumaLOG KWIKPEN) 8 Units SUBCUTANEOUS w MEALS - furosemide 40 mg tab(s) (LASIX) 40 mg ORAL DAILY - [MAR Hold due to Transfer] lisinopril 20 mg tab(s) (ZESTRIL, PRINIVIL) 20 mg ORAL DAILY Objective PHYSICAL EXAM: GENERAL: Alert, no distress, cooperative OROPHARYNX: moist mm NECK: No jugulovenous distention, No carotid bruits, Carotid pulse normal contour, Supple LUNGS: Lungs clear to auscultation, Good diaphragmatic excursion CARDIAC: Normal S1 and S2; no rubs, murmurs, or gallops ABDOMEN: Abdomen soft, non-tender, BS normal, No masses or organomegaly EXTREMITIES: Extremities normal, no deformities, edema, clubbing or skin discoloration. Good capillary refill., No ulcers NEURO: Grossly normal cognition, motor function, and cranial nerves III-XII BP 106/59 Pulse 69 Temp (Src) 97.9 (Oral) Resp 18 Wt 161 lb 9.6 oz (73.3kg) SpO2 99% O2 Therapy: Room Air DATA: Diagnostic tests reviewed for today's visit: Most recent labs and imaging results. Assessment/Plan Diabetes mellitus type 2; HbA1c 8.4; on lantus 12 units daily and humalog 8 units qac tid plus correction SHA/CKS stage III; S creat 2.1 (baseline 1.3) ACS (acute coronary syndrome) (HCC) POA: Yes Assessment AND Plan: EF 30%; awaiting decision for CABG SIGNATURE: Ann Echeverria MD PATIENT NAME: Concha Woodward DATE: January 05, 2020 TIME: 8:40 AM PAGER: [phone] Normal [facility] CT CHEST WO IVCONon 01-05-20 CT CHEST WO IVCON * * *Final Report* * * DATE OF EXAM: Jan 05 2020 1:48PM [facility] 0541 - CT CHEST WO IVCON / PROCEDURE REASON: Prior revascularization (either PTCA or CABG) * * * * Physician Interpretation * * * * EXAMINATION: CHEST CT WITHOUT CONTRAST CLINICAL HISTORY: Prior revascularization (either PTCA or CABG) Technique: Spiral CT acquisition of the chest from the thoracic inlet to the upper abdomen without contrast. MQ: [id number] CT Dose-Length Product: 298 mGy*cm CT Dose Reduction Employed: mAs-kVp adjusted based on patient size-age Comparison: None RESULT: Limitations: None. Lines, tubes, and devices: None. Lung parenchyma and airways: There are widely scattered tiny bilateral pulmonary nodules. None of these measures more than 4 mm. The largest individual nodule is noted at the left upper lobe on image 39 of series 3. The lungs are clear of large masses or areas of consolidation. Pleural space: No pleural effusion. No pleural thickening. Lower neck, lymph nodes, and mediastinum: The imaged thyroid gland is normal. No lymphadenopathy in the supraclavicular, axillary, mediastinal, or hilar regions. Heart, pericardium, and thoracic vessels: There is no apparent aneurysmal dilatation of the thoracic aorta with the ascending aorta measuring up to 3.2 cm. No significant calcification is noted at the aortic root although there is extensive coronary arterial atherosclerotic vascular calcification. Heart is not enlarged. There is no pericardial effusion. Within the limits of a noncontrast examination, there is no significant mediastinal lymph node enlargement. The main pulmonary artery is not significantly dilated. Bones and soft tissues: No destructive bone lesion. Chest wall is unremarkable. Upper abdomen: The kidneys have a lobular configuration bilaterally which may be secondary to extensive scarring. It is difficult to exclude mass lesion on this basis. Ultrasound is suggested. There is a punctate nonobstructive right renal calculus. Gallbladder surgically absent. Diverticulosis of the visualized portions of the colon. IMPRESSION: Thoracic aorta is within normal limits. Widely scattered tiny nodules measuring 4 mm or less. If clinically indicated, follow-up in one year could be considered. Lobular contour to the kidneys making it difficult to exclude mass lesion. Ultrasound is recommended. There is a punctate nonobstructive right renal calculus. Incidental Finding: No follow-up imaging for this/these incidentally detected lung nodule(s) is recommended. If there are risk factors for lung malignancy, a follow-up chest CT exam could be obtained in 12 months. Taker Off Drying Kiln: [facility] Transcribe Date/Time: Jan 05 2020 2:13P Dictated by : ALEJANDRINA MINER MD This examination was interpreted and the report reviewed and electronically signed by: ALEJANDRINA MINER MD on Jan 05 2020 2:22PM EST Normal [facility] Hemogram/Diffon 01-05-2020 Interpreted by See below Normal [facility] Comment on above: Result Comment: Miriam Loving M.D., Pathologist Performed By: #### P T #### [place] [address] Abs Immature Grans 0.08 thou/cmm High 0.00-0.05 [facility] Comment on above: Performed By: #### P T #### [facility] [address] [place] [address] Abs Neut (ANC) 5.52 thou/cmm Normal 1.56-6.13 [facility] Comment on above: Performed By: #### P T #### [place] [address] Abs. Baso 0.05 thou/cmm Normal 0.01-0.08 [facility] Comment on above: Result Comment: Smea r scanned; tech agrees with automated differential Performed By: #### P T #### [facility] [address] [place], [place] [address] Abs. Bledsoe 1.00 thou/cmm High 0.27-0.70 [facility] Comment on above: Performed By: #### P T #### [facility] [address] [place], [place] [address] Basophils/100 WBC (Bld) 0.4 % Normal [facility] Comment on above: Performed By: #### P T #### [facility] [address] [place], [place] [address] Eosinophils (Bld) [#/Vol] 0.09 thou/cmm Normal 0.00-0.31 [facility] Comment on above: Performed By: #### P T #### [facility] [address] [place], [place] [address] Eosinophils/100 WBC (Bld) 0.8 % Normal [facility] Comment on above: Performed By: #### P T #### [facility] [address] [place], [place] [address] Immature Grans 0.70 % Normal [facility] Comment on above: Performed By: #### P T #### [facility] [address] [place], [place] [address] Lymphocytes (Bld) [#/Vol] 5.07 thou/cmm High 1.18-3.74 [facility] Comment on above: Performed By: #### P T #### [facility] [address] [place], [place] [address] Lymphocytes/100 WBC (Bld) 42.9 % Normal [facility] Comment on above: Performed By: #### P T #### [facility] [address] [place], [place] [address] Monocytes/100 WBC (Bld) 8.5 % Normal [facility] Comment on above: Performed By: #### P T #### [address] [address] Seg Neutrophil 46.7 % Normal [facility] Comment on above: Performed By: #### P T #### [facility] [address] [place] [address] Erythrocyte distribution width (RBC) [Ratio] 13.2 % Normal 11.7-14.4 [facility] Comment on above: Performed By: #### P T #### [facility] [address] [place] [address] Hematocrit (Bld) [Volume fraction] 35.9 % Normal 34.1-44.9 [facility] Comment on above: Performed By: #### P T #### [facility] [address] [place] [address] Hemoglobin (Bld) [Mass/Vol] 12.0 g/dL Normal 11.2-15.7 [facility] Comment on above: Performed By: #### P T #### [facility] [address] [place] [address] MCH (RBC) [Entitic mass] 30.2 pg Normal 25.6-32.2 [facility] Comment on above: Performed By: #### P T #### [facility] [address] [place] [address] MCHC (RBC) [Mass/Vol] 33.4 % Normal 31.6-34.8 [facility] Comment on above: Performed By: #### P T #### [facility] [address] [place] [address] MCV (RBC) [Entitic vol] 90.2 fL Normal 79.4-94.8 [facility] Comment on above: Performed By: #### P T #### [facility] [address] [place] [address] Platelet mean volume (Bld) [Entitic vol] 11.5 fL Normal 9.4-12.3 [facility] Comment on above: Performed By: #### P T #### [facility] [address] [place] [id number] Platelets (Bld) [#/Vol] 335 thou/cmm Normal 182-369 [facility] Comment on above: Performed By: #### P T #### [facility] [address] [place], [place] [address] RBC (Bld) [#/Vol] 3.98 mil/cmm Normal 3.93-5.22 [facility] Comment on above: Performed By: #### P T #### [facility] [address] [place], [place] [address] RDW SD 44.1 fl Normal 36.4-46.3 [facility] Comment on above: Performed By: #### P T #### [facility] [address] [place], [place] [address] WBC (Bld) [#/Vol] 11.82 thou/cmm High 3.98-10.04 [facility] Comment on above: Performed By: #### P T #### [facility] [address] [place] [address] PLAN OF CAREon 01-05-2020 PLAN OF CARE HNO ID: [id number] Author: Molly Harkins) DAYANA Mullen Service: Cardiovascular Surgery Author Type: Nurse Practitioner Type: Plan of Care Filed: 01/05/2020 3:26 PM Note Text: CARDIOTHORACIC SURGERY PLAN OF CARE SERVICE DATE: January 05, 2020 SERVICE TIME: 3:18 PM Patient is visited today. She is resting comfortably in bed, alert and oriented ?3, denies active chest pain. Updated patient regarding the plan: we are waiting on her Echo and HC discs from [place]. We will present her case tomorrow at heart conference if image is available. She need Brilinta washout.continue Hep Gtt. Needs ASA, BB and statin for CAD management. Completed Carotid US, CT chest and renal consult. Patient is pleased with the plan update. Will continue follow up with patient regarding next step. I spent 25 minutes in the visit, with more than 50% of the total tooh-pb-asrz time of the visit in counseling / coordination of care. Molly Mullen APRN.EVENTS ASSISTANT Normal [facility] PROGRESSon 01-05-2020 PROGRESS HNO ID: [id number] Author: Cesar Burroughs Service: Nephrology Author Type: Physician Type: Progress Notes Filed: 01/05/2020 4:47 PM Note Text: CONSULT PROGRESS NOTE NEPHROLOGY SERVICE Subjective INTERVAL HISTORY: We are seeing the patient for issues with SHA and New onset CHF Cr is worse LUDY likely SOB resolved No edema All labs / data/ chart and interval events are noted BP has been stable No issues with urine output Lytes are better No s/o CHF Responding to current rx at this time No other new issues No change in the PFSH at this time ROS is (-) unless mentioned MEDICATIONS: Current Facility-Administered Medications Medication Dose Route Frequency - carvedilol 6.25 mg tab(s) (COREG) 6.25 mg ORAL BID w MEALS - albuterol 2.5 mg /3 mL (0.083 %) 2.5 mg (PROVENTIL) 2.5 mg INHALATION q 4 H PRN - amLODIPine 10 mg tab(s) (NORVASC) 10 mg ORAL DAILY - allopurinol 100 mg tab(s) (ZYLOPRIM) 100 mg ORAL DAILY - aspirin 81 mg chewable tab(s) 81 mg ORAL DAILY - nitroglycerin sublingual 0.4 mg tab(s) (NITROQUICK) 0.4 mg SUBLINGUAL PRN - potassium chloride ER 20-40 mEq tab(s) (K-DUR, KLOR-CON) 20-40 mEq ORAL/FEEDING TUBE PRN Or - potassium chloride iv piggyback 20 mEq/100 mL 20 mEq INTRAVENOUS PRN - magnesium sulfate in water 2 g in sterile water 50 ml 2 g INTRAVENOUS PRN - sodium phosphate 45 mmol in NaCl 0.9% 250 mL 45 mmol INTRAVENOUS PRN - calcium gluconate 4 g in NaCl 0.9% 250 mL 4 g INTRAVENOUS PRN - heparin iv infusion (LOW DOSE ACS/NOMOGRAM) 25,000 units in NaCl 0.45% 250 mL PREMIX 0-3,000 Units/hr INTRAVENOUS CONTINUOUS And - heparin RATE CHANGE bolus 1,000-4,000 Units for subtherapeutic aptt results 1,000-4,000 Units INTRAVENOUS PRN - dextrose 40 % 15 g 15 g ORAL PRN Or - glucagon 1 mg injection (GLUCAGEN) 1 mg INTRAMUSCULAR PRN Or - dextrose 50% in water 25 mL syringe 12.5 g INTRAVENOUS PRN - NaCl 0.9% 3-5 mL 3-5 mL INTRAVENOUS q 12 H - atorvastatin 10 mg tab(s) (LIPITOR) 10 mg ORAL AT BEDTIME - ezetimibe 10 mg tab(s) (ZETIA) 10 mg ORAL DAILY - mupirocin 2 % ointment (BACTROBAN) TOPICAL TID - folic acid 1 mg tab(s) 1 mg ORAL DAILY - ferrous sulfate 325 mg tab(s) 325 mg ORAL BID w MEALS - senna-docusate 8.6-50 mg 1 tablet (SENNA-S) 1 tablet ORAL BID - ascorbic acid (vitamin C) 500 mg tab(s) (VITAMIN C) 500 mg ORAL BID - insulin lispro 0-10 Units pen (rapid acting) (HumaLOG KWIKPEN) 0-10 Units SUBCUTANEOUS w MEALS - insulin glargine 12 Units pen (long acting) (LANTUS SOLOSTAR, BASAGLAR KWIKPEN) 12 Units SUBCUTANEOUS DAILY (8 AM) - insulin lispro 8 Units pen (rapid acting) (HumaLOG KWIKPEN) 8 Units SUBCUTANEOUS w MEALS - furosemide 40 mg tab(s) (LASIX) 40 mg ORAL DAILY - [MAR Hold due to Transfer] lisinopril 20 mg tab(s) (ZESTRIL, PRINIVIL) 20 mg ORAL DAILY PHYSICAL EXAM: BP (!) 103/46 Pulse 70 Temp 36.5 ?C (97.7 ?F) (Oral) Resp 18 Wt 73.3 kg (161 lb 9.6 oz) SpO2 100% BMI 28.63 kg/m? No intake or output data in the 24 hours ending 01/05/20 1642 . HEAD, EYES, ENT: No pallor. No cyanosis. No icterus. Mucous membranes of mouth were moist. NECK: Otherwise supple. Hard for me to see a jugular vein distention elevation. LUNGS: Clear to auscultation. No rales. CARDIOVASCULAR: S1, S2. No rubs or gallops. ABDOMEN: Soft, obese, nontender. Bowel sounds are heard. EXTREMITIES: No peripheral edema. SKIN: Otherwise warm and moist. PSYCH: Normal affect. Does not appear to be anxious, depressed, or agitated. ? DATA: Diagnostic tests reviewed for today's visit: Recent Labs 01/05/20 0354 CO2 23 Specific [place], Ur Date Value Ref Range Status 12/25/2019 1.012 1.005 - 1.030 Final Glucose, Urine Date Value Ref Range Status 12/25/2019 Negative Negative mg/dL Final Bilirubin, Urine Date Value Ref Range Status 12/25/2019 Negative Negative Final Ketones, Urine Date Value Ref Range Status 12/25/2019 Negative Negative Final Hemoglobin/Blood,Ur Date Value Ref Range Status 12/25/2019 Negative Negative Final Protein, Urine Date Value Ref Range Status 01/04/2020 65.5 (H) 0.0 - 11.9 mg/dL Final Urobilinogen, Urine Date Value Ref Range Status 07/01/2012 0.2 Normal (<1.1) EU Final Nitrites Date Value Ref Range Status 12/25/2019 Negative Negative Final Leukocytes Date Value Ref Range Status 07/01/2012 trace Neg Final WBC, Urine Date Value Ref Range Status 12/25/2019 0-5 0 - 5 /HPF Final Recent Labs 01/05/20 0354 01/04/20 0915 01/03/20 2355 NA 137 134* 134* K 3.2* 4.2 4.5 CHLOR 106 103 105 CO2 23 21 20* BUN 46* 38* 37* CREAT 2.16* 1.51* 1.43* GLUC 145* 284* 202* ANION 11 14 14 CA 8.6 9.0 8.8 P -- 3.0 -- Recent Labs 01/05/20 0354 01/03/20 2355 01/03/20 1835 WBC 11.82* 11.96* 10.82* HB 12.0 12.4 13.0 HCT 35.9 36.0 38.4 PLT 335 333 315 Assessment/Plan 84 year old female who presents with IMPRESSION: SHA +ATN from LUDY CKD 3 STEMI Acute systolic CHF 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 Reccomendations Cr is worse CIIN likely Dc ISABELLA-I Back off on diuresis for 24 h With both expect the cr to peak, stabalize and then decrease With the ongoing SHA 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 Will not recommend CABG until cr settles Avoid all renal toxins Avoid BP shifts repalce K Trend the cr Avoid all renal toxins We will follow closely Normal [facility] PROGRESS HNO ID: [id number] Author: Chandan Tavarez Service: Hospital Medicine Author Type: Physician Type: Progress Notes Filed: 01/05/2020 12:52 PM Note Text: DEPARTMENT OF HOSPITAL MEDICINE PROGRESS NOTE SERVICE DATE: 01/05/2020 SERVICE TIME: 12:44 PM Hospital Medicine/Primary Attending: Chandan Tavarez MD NIGHT AND WEEKEND COVERAGE: From 7am - 7pm, please call [phone] After 7pm, please call cross cover pager #[phone] Subjective INTERVAL HPI: Reports that she is doing well. No fever or chills. No chest pain. MEDICATIONS: Reviewed Objective PHYSICAL EXAM: BP 106/59 Pulse 69 Temp (Src) 97.9 (Oral) Resp 18 Wt 161 lb 9.6 oz (73.3kg) SpO2 99% O2 Therapy: Room Air Physical Exam Performed GENERAL: Alert, no distress, cooperative SKIN: Skin color, texture, turgor normal. No rashes or lesions. HEAD/SINUSES: No significant findings EYES: PERRLA, EOMI EARS: External ears normal, canals clear NOSE: Nares normal. Septum midline. OROPHARYNX: Lips, mucosa, and tongue normal. Teeth and gums normal. Oropharynx normal. NECK: No jugulovenous distention, No carotid bruits, Carotid pulse normal contour, Supple LUNGS: Lungs clear to auscultation, Good diaphragmatic excursion CARDIAC: Normal S1 and S2; no rubs, murmurs, or gallops ABDOMEN: Abdomen soft, non-tender, BS normal, No masses or organomegaly EXTREMITIES: Extremities normal, no deformities, edema, clubbing or skin discoloration. Good capillary refill., No ulcers NEURO: Grossly intact PULSES: 2+ radial, 2+ carotid Lines, Drains, and Airways Line Peripheral 01/03/20 1849 Admission to Hospital Short Left Forearm 20 Gauge 1 day Peripheral 01/04/20 1618 Short Right Antecubital 20 Gauge less than 1 day DATA: Diagnostic tests reviewed for today's visit: Assessment/Plan 1. ACS (acute coronary syndrome): Noted to have Multi vessel disease. Awaiting cardiothoracic evaluation for possible surgery 2. Hypertension Essential: On home medication Well controlled 3. Hyperlipidemia: on statin 4. DM type 2: Fair control Continue lantus and sliding scale Hx of CHF. Not in exacerbation. Medication and Non-Pharmacologic VTE Prophylaxis/Anticoagula nts Anticoagulant AND Antiplatelet Medications (From admission, onward) Start Dose Route Frequency Ordered Stop 01/03/20 1800 aspirin 81 mg chewable tab(s) (Order Panel) 81 mg ORAL DAILY 01/03/20 1759 -- 01/03/20 1800 heparin iv infusion (LOW DOSE ACS/NOMOGRAM) 25,000 units in NaCl 0.45% 250 mL PREMIX (Heparin Infusion + Rate Change Bolus) 0-30 mL/hr 0-3,000 Units/hr INTRAVENOUS CONTINUOUS 01/03/20 1759 -- 01/03/20 1800 vte non-pharmacologic prophylaxis - none indicated (md,wa) 01/03/20 1800 vte current anticoag therapy (md,wa) 01/03/20 1800 activity - mobilize patient (md,wa) VTE Prophylaxis: VTE prophylaxis appropriate Disposition: Home Plan of care discussed with: Patient SIGNATURE: Chandan Tavarez MD PATIENT NAME: Concha Woodward DATE: January 05, 2020 TIME: 12:44 PM PAGER/CONTACT #: [phone] Normal [facility] US CAROTID BILon 01-05-2020 Bilirubin.direct [Mass/Vol] * * *Final Report* * * DATE OF EXAM: Jan 05 2020 12:57PM A2U 1077 - US CAROTID GIOVANY / PROCEDURE REASON: cva * * * * Physician Interpretation * * * * Non-Invasive Vascular Laboratory [facility] Carotid Duplex Bilateral/Complete Date of service/time: 01/05/2020 8:46:22 AM Name: MRS. CONCHA WOODWARD Date of : 1935 Age: 84 years Gender: F Clinical Indication Cerebrovascular accident. TECHNIQUE -------- A carotid duplex ultrasound examination was performed, including grayscale imaging and color Doppler and spectral Doppler examination of the below mentioned arteries. FINDINGS -------- RIGHT SIDE Common carotid artery: Proximal: PSV: 131 cm/s. EDV: 18 cm/s. Distal: PSV: 61 cm/s. EDV: 11 cm/s. Internal carotid artery: Origin: PSV: 80 cm/s. EDV: 12 cm/s. Proximal: PSV: 116 cm/s. EDV: 30 cm/s. Mid: PSV: 101 cm/s. EDV: 20 cm/s. Distal: PSV: 106 cm/s. EDV: 27 cm/s. Moderate heterogeneous shadowing plaque from origin to proximal. ICA/CCA Ratio: 1.9 External carotid artery: Proximal: PSV: 98 cm/s. EDV: 10 cm/s. Vertebral artery: Mid: PSV: 79 cm/s. EDV: 14 cm/s. LEFT SIDE Common carotid artery: Proximal: PSV: 62 cm/s. EDV: 12 cm/s. Distal: PSV: 91 cm/s. EDV: 22 cm/s. Internal carotid artery: Origin: PSV: 93 cm/s. EDV: 18 cm/s. Proximal: PSV: 80 cm/s. EDV: 20 cm/s. Mid: PSV: 82 cm/s. EDV: 20 cm/s. Distal: PSV: 80 cm/s. EDV: 21 cm/s. Mild heterogeneous shadowing plaque from origin to proximal. ICA/CCA Ratio: 1.0 External carotid artery: Proximal: PSV: 149 cm/s. EDV: 1 cm/s. Vertebral artery: Mid: PSV: 37 cm/s. EDV: 9 cm/s. IMPRESSION There is a significant amount of plaque in the left carotid bulb that extends into the internal carotid artery with some significant shadowing. This may cause underestimation of degree of stenosis especially on the left. Depending in the patient's clinical status another imaging modality such as CT angiography may be beneficial in this setting. RIGHT SIDE Internal carotid artery: 40-59% stenosis. Vertebral artery: Patent and antegrade flow noted. LEFT SIDE Internal carotid artery: 20-39% stenosis. Vertebral artery: Patent and antegrade flow noted. Technologist: Irene Bell T Ordering physician: QI CALDERÓN Interpreting physician: Samuel Mendosa MD Final RP Taker Off Drying Kiln: BENEDICTO Transcribe Date/Time: Jan 05 2020 8:46A Dictated by : SAMUEL MENDOSA MD This examination was interpreted and the report reviewed and electronically signed by: SAMUEL MENDOSA MD on Jan 06 2020 10:42AM EST Normal [facility] Activated PTTon 01-04-2020 aPTT Coag (Bld) [Time] 53.3 s High 23.0-32.4 [facility] Comment on above: Result Comment: Unfr actionated Heparin Therapeutic Ranges: Standard Heparin Nomogram: 53 to 78 seconds (anti-Xa level of 0.3 to 0.7 U/mL) Low Dose/ACS Nomogram: 49 to 67 seconds (anti-Xa level of 0.2 to 0.5 U/mL) Stroke Treatment Nomogram: 49 to 67 seconds (anti-Xa level of 0.2 to 0.5 U/mL) Note: The APTT therapeutic range has been determined for the current lot of laboratory APTT reagent in use throughout the [facility]. Performed By: #### P T #### [place] [address] aPTT Coag (Bld) [Time] 53.2 s High 23.0-32.4 [facility] Comment on above: Result Comment: Unfr actionated Heparin Therapeutic Ranges: Standard Heparin Nomogram: 53 to 78 seconds (anti-Xa level of 0.3 to 0.7 U/mL) Low Dose/ACS Nomogram: 49 to 67 seconds (anti-Xa level of 0.2 to 0.5 U/mL) Stroke Treatment Nomogram: 49 to 67 seconds (anti-Xa level of 0.2 to 0.5 U/mL) Note: The APTT therapeutic range has been determined for the current lot of laboratory APTT reagent in use throughout the [facility]. Performed By: #### A PTT #### [place] [address] aPTT Coag (Bld) [Time] 38.5 s High 23.0-32.4 [facility] Comment on above: Result Comment: Unfr actionated Heparin Therapeutic Ranges: Standard Heparin Nomogram: 53 to 78 seconds (anti-Xa level of 0.3 to 0.7 U/mL) Low Dose/ACS Nomogram: 49 to 67 seconds (anti-Xa level of 0.2 to 0.5 U/mL) Stroke Treatment Nomogram: 49 to 67 seconds (anti-Xa level of 0.2 to 0.5 U/mL) Note: The APTT therapeutic range has been determined for the current lot of laboratory APTT reagent in use throughout the [facility]. Performed By: #### A PTT #### [address] [address] Basic Panelon 01-04-2020 Creatinine [Mass/Vol] 1.43 mg/dL High 0.51-0.95 [facility] Comment on above: Result Comment: Use of this assay is not recommended for patients undergoing treatment with phenindione, due to the potential for falsely depressed results. Performed By: #### A PTT #### [facility] [address] [place], [place] [address] Anion gap [Moles/Vol] 14 mmol/L Normal 8-16 [facility] Comment on above: Performed By: #### A PTT #### [facility] [address] [place], [place] [address] Calcium [Mass/Vol] 8.8 mg/dL Normal 8.5-10.1 [facility] Comment on above: Performed By: #### A PTT #### [facility] [address] [place], [place] [address] CO2 [Moles/Vol] 20 mmol/L Low 21-32 [facility] Comment on above: Performed By: #### A PTT #### [facility] [address] [place], [place] [address] Glucose [Mass/Vol] 202 mg/dL High 70-99 [facility] Comment on above: Performed By: #### A PTT #### [facility] [address] [place], [place] [address] Urea nitrogen [Mass/Vol] 37 mg/dL High 7-18 [facility] Comment on above: Performed By: #### A PTT #### [facility] [address] [place], [place] [address] Chloride [Moles/Vol] 105 mmol/L Normal 98-[address] [facility] Comment on above: Performed By: #### A PTT #### [facility] [address] [place], [place] [address] Potassium [Moles/Vol] 4.5 mmol/L Normal 3.5-5.1 [facility] Comment on above: Performed By: #### A PTT #### [facility] [address] [place], [place] [address] Sodium [Moles/Vol] 134 mmol/L Low 136-145 [facility] Comment on above: Performed By: #### A PTT #### [place] [address] CONSULTon 01-04-2020 CONSULT HNO ID: [id number] Author: Cesar Burroughs Service: Nephrology Author Type: Physician Type: Consults Filed: 01/05/2020 10:31 AM Note Text: [facility] PATIENT NAME: CONCHA WOODWARD I CSN: [id number] DATE OF : 1935 SEX/AGE: F/84 PATIENT TYPE: I HOSP SVC: CARD LOCATION: [id number] DATE OF SERVICE: 01/04/2020 REFERRING PHYSICIAN: ISIDRO WOLF REASON FOR EVALUATION: Acute kidney injury on top of chronic kidney disease, stage [address] of ST-elevation myocardial infarction. HISTORY OF PRESENT ILLNESS: The patient is an 84-year-old lady, who denies any pre-existing history of kidney disease. Her baseline creatinine appears to be around 1.3 to 1.4. She presented to the hospital in [place], complaining of weakness, tiredness, cough, and shortness of breath. She was having some chest pain prior to presentation also and was radiating into both her arms. She did take her inhaler which actually rather than helping her made her pain worse. In the emergency room, she was found to have Q-waves in the 3 and aVF along with ST- segment elevation. She was found to be presenting late with acute ST-elevation myocardial infarction due to ongoing chest pain and she was brought to the cardiac gold leaf laborer. Her coronary angiography revealed multivessel coronary artery disease. She did receive Brilinta also. Her initial echocardiogram revealed ejection fraction of 30%. At this point in time, she is late presentation of ST-elevation myocardial infarction. She is being evaluated for coronary artery bypass grafting. I was asked to assess and evaluate and help with her management because her creatinine is elevated above her baseline and she has to be cleared for cardiac surgery and I was asked to risk stratify her for that. PAST MEDICAL HISTORY: 1. History of meningioma. 2. Diverticulosis of the colon. 3. History of coronary artery disease, status post angioplasty [address] [facility]. 4. History of internal hemorrhoids. 5. History of sinus arrhythmia. 6. Hyperlipidemia. 7. History of a stroke with some residual left-sided weakness. 8. History of hypertension. 9. Diabetes, which is insulin dependent. Does not have any neuropathy or retinopathy to her knowledge. She is unsure about nephropathy. PAST SURGICAL HISTORY: 1. Angioplasty in 1988. 2. Colonoscopy. 3. Laparoscopic cholecystectomy. 4. History of tubal , status post resection. FAMILY HISTORY: No history of end-stage renal disease. SOCIAL HISTORY: She denies any smoking, alcohol, or drug use. MEDICATIONS: Prior to admission are reviewed and included: 1. Vitamin D3. 2. Albuterol. 3. Amoxicillin. 4. Insulin. 5. Amlodipine 10 a day. 6. Lisinopril 40 a day. 7. Coreg 6.25 twice a day. 8. Allopurinol 100 a day. 9. Plavix 75 a day. 10.Claritin 10 mg daily. 11.[place]-3 fatty acids 2 capsules daily. 12.Calcium carbonate daily. ALLERGIES: 1. Bactrim, she gets vomiting. 2. Famotidine, she gets vomiting. 3. Prednisone, she gets vomiting. 4. Statin, she has intolerance. 5. Ultram, she gets vomiting. REVIEW OF SYSTEMS: A full 12-point review of system was done. No more chest pain. Shortness of breath is well controlled. No edema. No issues with urination. No fever. No chills. No cough. No phlegm. No other associated complaints at this point in time. PHYSICAL EXAMINATION: VITAL SIGNS: Blood pressure is 109/61, heart rate 75, respiratory rate 17, 98% on room air. HEAD, EYES, ENT: No pallor. No cyanosis. No icterus. Mucous membranes of mouth were moist. NECK: Otherwise supple. Hard for me to see a jugular vein distention elevation. LUNGS: Clear to auscultation. No rales. CARDIOVASCULAR: S1, S2. No rubs or gallops. ABDOMEN: Soft, obese, nontender. Bowel sounds are heard. EXTREMITIES: No peripheral edema. SKIN: Otherwise warm and moist. PSYCH: Normal affect. Does not appear to be anxious, depressed, or agitated. LABORATORY DATA: Data is reviewed. White count 11.9, hemoglobin 12.4, platelets 333,000. Sodium 134, potassium 4.5, chloride 105, bicarb 20, BUN 37, creatinine 1.43. Urinalysis is reviewed. Has some proteinuria. Does not seem to have an active sediment. Chest x-ray is reviewed, does not show any overt CHF at this point in time. We have an old ultrasound of the kidney from July 2012, which showed right kidney 11.7, left kidney at 10.2 cm. Noted the echocardiogram. ASSESSMENT: Based on my assessment following is my impression and recommendations. 1. Acute kidney injury on chronic kidney disease stage 3 appears to be secondary to IV contrast, acute congestive heart failure and cardiorenal decompensation along with underlying diabetic nephropathy exacerbating the situation. 2. Chronic kidney disease stage 3 from a combination: a. Age-related decline. b. Diabetes. c. Cardiorenal syndrome. 3. Diabetes [address]-elevation myocardial infarction. 5. Acute systolic congestive heart failure. 6. Hyperlipidemia. 7. Prior history of cerebrovascular accident with left-sided residual deficits. 8. Recent administration of Brilinta. 9. Long-term insulin dependence. RECOMMENDATION: 1. Given the current presentation, especially with ejection fraction of less than 35% and the need for insulin requiring diabetes if she undergoes coronary artery bypass graft, she is anywhere from 5% to 15% risk off acute kidney injury, possibly needing renal replacement therapy at this has been discussed in detail with her. 2. The benefit of the procedure far outweighs the risk at this point of time. 3. I explained to her that the [facility]ya criteria for risk of acute kidney injury post the coronary artery bypass graft take into account factors going in, but does not take into account any complications that can potentially happen during the procedure. 4. From renal standpoint, she is at moderate to high risk of kidney injury. However, the benefit of the procedure far exceeds the risk at this point of time given her presentation, especially with the reduced ejection fraction. 5. For risk stratification, will do a kidney ultrasound to assess the renal sizes and we will also check urine protein to creatinine ratio. 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 6. Recommend to keep hemoglobin greater than 10 for surgery. 7. Recommend to back off on the lisinopril 20 mg a day. The patient does not have a BMP from today, we will order another one.if worse, will need to dc 8. Avoid any overt hemodynamic shifts. 9. Once the date for surgery is decided, we will recommend to hold the ISABELLA inhibitor at least for 24 hours pre and for 72 hours post or until the time the patient's creatinine post surgery gets stable. 10.Avoid all potential nephrotoxic agents, especially nonsteroidal anti- inflammatory drugs and any further IV contrast administration. 11.We will follow the patient closely in the hospital with you. Please do not hesitate to call if any questions or concerns. I can be reached at with questions, concerns, or issues. For the coronary disease as well as the ST-elevation myocardial infarction, anticoagulation per the Cardiology team and we will defer the hypertension management to the Cardiovascular Intensive Care Unit team also. Thank you again for this consultation. Case is discussed in detail with the patient's family, that is daughter and son, as well as the patient herself. She is agreeable to proceed with the surgery with the current risk at this point of time. Cesar Burroughs MD DD:anthony /[id number] Normal [facility] CONSULT HNO ID: [id number] Author: Eileen Jones Service: Endocrinology Author Type: Physician Type: Consults Filed: 01/05/2020 12:46 PM Note Text: [facility] - Consultation PATIENT NAME: CONCHA WOODWARD I CSN: [id number] DATE OF : 1935 SEX/AGE: F/84 PATIENT TYPE: I HOSP [facility]: CARD LOCATION: [id number] DATE OF SERVICE: 01/04/2020 TIME OF SERVICE: 10:13 AM REFERRING PHYSICIAN: ISIDRO WOLF REASON FOR CONSULTATION: Diabetes management. This is Dr. Jones covering for Dr. Echeverria. HISTORY: The patient is an 84-year-old female, who was transferred from [place]. She was admitted there with chest pain and was found to have coronary artery disease. Patient has history of angioplasty 30 years ago. She had cardiac catheterization and was transferred to [facility]. Regarding diabetes, patient has history of type 2 diabetes for about 5 years. She was initially on metformin for about 2 years, which was stopped because of diarrhea. She was started on NovoLog insulin 3 times a day and then Basaglar was added about a year ago. At home, patient takes Basaglar 9 units every morning and she takes NovoLog 8 units for breakfast and dinner and 6 units for lunch. Her A1c was 7.6 on December 25, now her A1c is 8.4. Patient recently had bronchitis for last 1 week and she was on amoxicillin prior to admission. Patient states her weight has been stable. She does not have any numbness or neuropathy. She sees her eye doctor regularly and does not have any retinopathy. Patient has chronic kidney disease and does not see a kidney doctor. She checks her blood sugars only once a day in the morning. They are usually 150s. She does not check in the evening, but the evening blood sugar used to be higher. Patient had a blood sugar of 342 on admission here. Patient did take her 9 units of Basaglar and 8 units of NovoLog at home with breakfast. She did not have any lunch or dinner, but she did have a small snack of yogurt last night. At this time, she does not have any chest pain or shortness of breath. PAST MEDICAL HISTORY: History of type 2 insulin-requiring diabetes, history of hypertension, history of hyperlipidemia, history of MO 30 years ago when patient had angioplasty, history of chronic kidney disease, history of CVA 5 years ago with mild deficit in the left leg, history of benign neoplasm of cerebral meninges, incidental finding, history of diverticulosis. FAMILY HISTORY: Positive for diabetes in 1 uncle. Positive for heart disease in both parents. SOCIAL HISTORY: No history of smoking or alcohol use. REVIEW OF SYSTEMS: As per history of present illness, otherwise negative. PHYSICAL EXAMINATION: GENERAL: The patient is sitting in chair comfortably, no acute distress. VITAL SIGNS: Height 5 feet 3 inches. Her weight is 161 pounds. Afebrile. BP 132/72. SKIN: Warm and dry. Patient has an abrasion over her left elbow. No ulcers or calluses noticed on her feet. EYES: Pupils appear round. NECK: Supple. No goiter palpable on thyroid exam. LUNGS: Clear to auscultation. CVS: Regular rate and rhythm. ABDOMEN: Soft, nontender. EXTREMITIES: Normal range of motion of extremity joints. Muscle strength is grossly normal. Sensations intact. NEUROLOGIC: Patient is alert and oriented x3. LABORATORY DATA: Sodium 134, potassium 4.5, chloride 105, CO2 of 20, BUN 37, creatinine 1.43. Blood sugar 342 last night and 295 this morning. CLINICAL IMPRESSION: 1. Diabetes mellitus type 2, poor control on insulin at home. Her HbA1c is 8.4, and she does have fasting blood sugars of 150s at home even when she is not sick. She is on Basaglar 9 units every morning and NovoLog 8 units for breakfast and dinner and 6 units for lunch at home. 2. Acute coronary syndrome. The patient has severe coronary artery disease with ejection fraction of 30% and she has non-ST elevation myocardial infarction. 3. Chronic kidney disease. Creatinine is stable at 1.43. RECOMMENDATION: 1. Discussed with the patient the goal of glycemic control and the importance of glycemic control since the patient is being prepared for coronary artery bypass graft. 2. I would continue to monitor the blood sugars before meals and bedtime. 3. Continue carb controlled diet. The patient is currently on a heart healthy diet and I will change it to carb-controlled diet. 4. We will increase the Lantus to 12 units every morning and give 3 units extra now. 5. I will increase the Humalog to 8 units 3 times a day with a sliding scale. 6. We will follow the patient with you and Dr. Echeverria. We will start seeing the patient tomorrow. Eileen Jones MD Endocrinology SM:modl /[id number] [facility] CONSULT HNO ID: [id number] Author: Eileen Jones Service: Endocrinology Author Type: Physician Type: Consults Filed: 01/04/2020 10:11 AM Note Text: I have reviewed the patient's medical record in detail. Consult note dictated. See new insulin orders. Eileen Jones MD [facility] CONSULT HNO ID: [id number] Author: Cesar Burroughs Service: Nephrology Author Type: Physician Type: Consults Filed: 01/04/2020 3:02 PM Note Text: Chart reviwed Thanks full consult to follow [id number] SHA ON CKD 3 Trend the cr post the IV Contrast Follow the renal function Decrease ISABELLA-I and hold If cr > 30 % increase over baseline Avoid overt BP shifts At this time Risk of SHA needing SCREEN PRINTING SUPERVISOR post the CABG is about 9 % ( +/- 5 ) She is aware Benefit > risk Needs a renal USG to see if has renal asymmetry or smaller kidneys and to see if has proteinuric renal dz That also elevates the Chances of worse SHA post the CABG Follow the lytes Urine P/C Check Agree with CVICU rx for the acute CHF More reccomendations as more data is available We will follow closely- Normal [facility] Creatinine,Urineon 0 Creatinine,Urine 181.0 mg/dL Normal [facility] Comment on above: Result Comment: Use of this assay is not recommended for patients undergoing treatment with phenindione, due to the potential for falsely depressed results. Performed By: #### P T #### [place] [address] Ferritinon 01-04-2020 Ferritin [Mass/Vol] 205.90 ng/mL Normal 8.00-252.00 [facility] Comment on above: Performed By: #### A PTT #### [place] [address] Folateon 01-04-2020 Folate 68.70 ng/mL High 3.10-17.50 [facility] Comment on above: Performed By: #### A PTT #### [place] [address] Hemogram/Diffon 01-04-2020 Abs Immature Grans 0.06 thou/cmm High 0.00-0.05 [facility] Comment on above: Performed By: #### A PTT #### [place] [address] Abs Neut (ANC) 7.01 thou/cmm High 1.56-6.13 [facility] Comment on above: Performed By: #### A PTT #### [place] [address] Abs. Baso 0.04 thou/cmm Normal 0.01-0.08 [facility] Comment on above: Result Comment: Smea r scanned; tech agrees with automated differential Performed By: #### A PTT #### [place] [address] Abs. Bledsoe 0.87 thou/cmm High 0.27-0.70 [facility] Comment on above: Performed By: #### A PTT #### [facility] [address] [place], [place] [address] Basophils/100 WBC (Bld) 0.3 % Normal A [facility] Comment on above: Performed By: #### A PTT #### [facility] [address] [place], [place] [address] Eosinophils (Bld) [#/Vol] 0.05 thou/cmm Normal 0.00-0.31 [facility] Comment on above: Performed By: #### A PTT #### [facility] [address] [place], [place] [address] Eosinophils/100 WBC (Bld) 0.4 % Normal [facility] Comment on above: Performed By: #### A PTT #### [facility] [address] [place], [place] [address] Immature Grans 0.50 % Normal [facility] Comment on above: Performed By: #### A PTT #### [facility] [address], [place] [address] Lymphocytes (Bld) [#/Vol] 3.93 thou/cmm High 1.18-3.74 [facility] Comment on above: Performed By: #### A PTT #### [facility] [address] [place], [place] [address] Lymphocytes/100 WBC (Bld) 32.9 % Normal [facility] Comment on above: Performed By: #### A PTT #### [facility] [address] [place], [place] [address] Monocytes/100 WBC (Bld) 7.3 % Normal [facility] Comment on above: Performed By: #### A PTT #### [facility] [address] [place], [place] [address] Seg Neutrophil 58.6 % Normal [facility] Comment on above: Performed By: #### A PTT #### [facility] [address] [place], [place] [address] Erythrocyte distribution width (RBC) [Ratio] 13.2 % Normal 11.7-14.4 [facility] Comment on above: Performed By: #### A PTT #### [facility] [address] [place] [address] Hematocrit (Bld) [Volume fraction] 36.0 % Normal 34.1-44.9 [facility] Comment on above: Performed By: #### A PTT #### [facility] [address] [place], [place] [address] Hemoglobin (Bld) [Mass/Vol] 12.4 g/dL Normal 11.2-15.7 [facility] Comment on above: Performed By: #### A PTT #### [facility] [address] [place] [address] MCH (RBC) [Entitic mass] 30.8 pg Normal 25.6-32.2 [facility] Comment on above: Performed By: #### A PTT #### [facility] [address] [place] [address] MCHC (RBC) [Mass/Vol] 34.4 % Normal 31.6-34.8 [facility] Comment on above: Performed By: #### A PTT #### [facility] [address] [place] [address] MCV (RBC) [Entitic vol] 89.3 fL Normal 79.4-94.8 [facility] Comment on above: Performed By: #### A PTT #### [facility] [address] [place] [address] Platelet mean volume (Bld) [Entitic vol] 11.6 fL Normal 9.4-12.3 [facility] Comment on above: Performed By: #### A PTT #### [facility] [address] [place] [address] Platelets (Bld) [#/Vol] 333 thou/cmm Normal 182-369 [facility] Comment on above: Performed By: #### A PTT #### [facility] [address] [place] [address] RBC (Bld) [#/Vol] 4.03 mil/cmm Normal 3.93-5.22 [facility] Comment on above: Performed By: #### A PTT #### [facility] [address] [place] [address] RDW SD 43.2 fl Normal 36.4-46.3 [facility] Comment on above: Performed By: #### A PTT #### [facility] [address] [place] [address] WBC (Bld) [#/Vol] 11.96 thou/cmm High 3.98-10.04 [facility] Comment on above: Performed By: #### A PTT #### [facility] [address] [place] [address] Iron % Saturationon 01-04-20 20 Iron % Saturation 27 % Normal 20-55 [facility] Comment on above: Performed By: #### A PTT #### [facility] [address] [place] [address] Iron Binding Cap. 292 ug/dL Normal 250-450 [facility] Comment on above: Result Comment: SPEC IMEN SLIGHTLY HEMOLYZED Performed By: #### A PTT #### [place] [address] Iron Serum 78 ug/dL Normal 50-170 [facility] Comment on above: Result Comment: SPEC IMEN SLIGHTLY HEMOLYZED Performed By: #### A PTT #### [place] [address] NURSING PROGon 01-04-2020 NURSING PROG HNO ID: [id number] Author: Caio BlairRn) RITA Simms Service: Nursing Author Type: Registered Nurse Type: Nursing Progress Note Filed: 01/04/2020 9:25 PM Note Text: Pt transported via wheelchair to [facility] in stable condition. Nurse notified that pt was in room, pt connected to telemetry monitoring device prior to this RN's departure. Normal [facility] PROGRESSon 01-04-2020 PROGRESS HNO ID: [id number] Author: Patience Adler Service: Cardiovascular Medicine Author Type: Resident Type: Progress Notes Filed: 01/04/2020 12:58 PM Note Text: CVICU Transfer Note 84 year old female PMH T2DM, CAD s/p PCI 30 years ago, CVA on Plavix who was admitted for coronary artery bypass graft eval after presenting as a STEMI to [place]. Over the last 3 days she's been having bilateral arm pain, that radiated to her chest. She presented to the [place] ED. EKG done in the emergency room revealed Q waves in III and aVF along with ST elevation. It was felt that patient was presenting late with acute ST elevation MO but due to ongoing chest pain that was about 2/10 in intensity she was evaluated and brought emergently to the cardiac Grooving Machine Operator for coronary angiography. Coronary angiography revealed multivessel coronary artery disease with MARTIN-3 flow in all the vessels and she was transferred to [facility] for CABG evaluation. Of note, she takes Plavix at home for her hx CVA and did receive Brilinta in the ED . Transthoracic echocardiogram done at [place] showed left ventricular ejection fraction of 30%, DWMA, no valvular disease. A/P: ACS presenting as STEMI with multivessel disease?awaiting coronary artery bypass graft eval Coronary artery disease with remote PCI HFrEF, appears euvolemic today Type 2 Diabetes Mellitus?on insulin? History basal ganglia infarct on Plavix Hypertension Dyslipidemia CKD History meningioma ? 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 Transferred to medical floor-SOUND accepted Patience Adler CVICU Resident Pager #[phone] Normal [facility] PROGRESS HNO ID: [id number] Author: Darryn Phillips Service: Cardiovascular Medicine Author Type: Physician Type: Progress Notes Filed: 01/04/2020 1:22 PM Note Text: [facility] CVICU PROGRESS NOTE Service Date: 01/04/2020 Service Time: 8:30 AM HPI: 84 year old female PMH T2DM, CAD s/p PCI 30 years ago, CVA on Plavix who was admitted for coronary artery bypass graft eval after presenting as a STEMI to [place]. She had been having URI sxs for the last week and was being treated with a 10 day course of amoxicillin. She had associated dry cough and intermittent SOB. Over the last 3 days she's been having bilateral arm pain, that radiated to her chest. She described it as a pressure. She presented to the [place] ED. EKG done in the emergency room revealed Q waves in III and aVF along with ST elevation. It was felt that patient was presenting late with acute ST elevation MO but due to ongoing chest pain that was about 2/10 in intensity she was evaluated and brought emergently to the cardiac [facility] for coronary angiography. Coronary angiography revealed multivessel coronary artery disease with MARTIN-3 flow in all the vessels and she was transferred to [facility] for CABG evaluation. Of note, she takes Plavix at home for her hx CVA and did receive Brilinta in the ED . Transthoracic echocardiogram done at [place] showed left ventricular ejection fraction of 30%, DWMA, no valvular disease. ? Interval History: No overnight events. Patient feels well and denies CP since leaving the ED. She denies n/v, abd pain, dysuria, bleeding issues. She is sitting up in chair eating and drinking. She had two episodes of diarrhea this AM and states it looked dark, she has also had nasal congestion and when she blows her nose it is blood streaked. Otherwise she feels well. Telemetry: NSR Inpatient Medications: Current Facility-Administered Medications Medication Dose Route Frequency - carvedilol 6.25 mg tab(s) (COREG) 6.25 mg ORAL BID w MEALS - lisinopril 40 mg tab(s) (ZESTRIL, PRINIVIL) 40 mg ORAL DAILY - albuterol 2.5 mg /3 mL (0.083 %) 2.5 mg (PROVENTIL) 2.5 mg INHALATION q 4 H PRN - furosemide 20 mg injection (LASIX) 20 mg INTRAVENOUS DAILY - amLODIPine 10 mg tab(s) (NORVASC) 10 mg ORAL DAILY - allopurinol 100 mg tab(s) (ZYLOPRIM) 100 mg ORAL DAILY - insulin glargine 9 Units pen (long acting) (LANTUS SOLOSTAR, BASAGLAR KWIKPEN) 9 Units SUBCUTANEOUS DAILY (8 AM) - insulin lispro 6 Units pen (rapid acting) (HumaLOG KWIKPEN) 6 Units SUBCUTANEOUS w MEALS - aspirin 81 mg chewable tab(s) 81 mg ORAL DAILY - nitroglycerin sublingual 0.4 mg tab(s) (NITROQUICK) 0.4 mg SUBLINGUAL PRN - potassium chloride ER 20-40 mEq tab(s) (K-DUR, KLOR-CON) 20-40 mEq ORAL/FEEDING TUBE PRN Or - potassium chloride iv piggyback 20 mEq/100 mL 20 mEq INTRAVENOUS PRN - magnesium sulfate in water 2 g in sterile water 50 ml 2 g INTRAVENOUS PRN - sodium phosphate 45 mmol in NaCl 0.9% 250 mL 45 mmol INTRAVENOUS PRN - calcium gluconate 4 g in NaCl 0.9% 250 mL 4 g INTRAVENOUS PRN - heparin iv infusion (LOW DOSE ACS/NOMOGRAM) 25,000 units in NaCl 0.45% 250 mL PREMIX 0-3,000 Units/hr INTRAVENOUS CONTINUOUS And - heparin RATE CHANGE bolus 1,000-4,000 Units for subtherapeutic aptt results 1,000-4,000 Units INTRAVENOUS PRN - dextrose 40 % 15 g 15 g ORAL PRN Or - glucagon 1 mg injection (GLUCAGEN) 1 mg INTRAMUSCULAR PRN Or - dextrose 50% in water 25 mL syringe 12.5 g INTRAVENOUS PRN - NaCl 0.9% 3-5 mL 3-5 mL INTRAVENOUS q 12 H - insulin lispro pen (rapid acting) (HumaLOG KWIKPEN) SUBCUTANEOUS w MEALS - atorvastatin 10 mg tab(s) (LIPITOR) 10 mg ORAL AT BEDTIME - ezetimibe 10 mg tab(s) (ZETIA) 10 mg ORAL DAILY Home Medications: cholecalciferol, Vitamin D3, (VITAMIN D3) 1,250 mcg (50,000 unit) cap capsule, Take 1 capsule by mouth two times a week. (ONE CAPSULE) FOR VITAMIN D DEFICIENCY albuterol HFA (VENTOLIN HFA) 90 mcg/actuation inhaler, Inhale 2 Puffs as instructed every 4 hours as needed for Wheezing/Shortness of Breath. albuterol HFA (VENTOLIN HFA) 90 mcg/actuation inhaler, Inhale 2 Puffs as instructed every 4 hours as needed for Wheezing/Shortness of Breath. amoxicillin (AMOXIL) 875 mg tablet, Take 1 tablet by mouth twice daily for 10 days. blood sugar diagnostic (FREESTYLE LITE STRIPS) test strip, TEST BLOOD SUGARS 3 times daily. insulin glargine (BASAGLAR KWIKPEN U-100 INSULIN) 100 unit/mL (3 mL) inpn, Inject 11 Units subcutaneously every morning. Insulin [place], Disposable, (UrbanIndo ULTRA-FINE JOHN PEN NEEDLE) 32 gauge x 5/32 ndle, Use one needle for each dose. 1x/day. amLODIPine (NORVASC) 10 mg tablet, Take 1 tablet by mouth once daily. lisinopril (ZESTRIL, PRINIVIL) 40 mg tablet, Take 1 tablet by mouth once daily. carvedilol (COREG) 6.25 mg tablet, Take 1 tablet by mouth twice daily with meals. allopurinol (ZYLOPRIM) 100 mg tablet, Take 1 tablet by mouth once daily. clopidogrel (PLAVIX) 75 mg tablet, Take 1 tablet by mouth once daily. insulin aspart U-100 (NOVOLOG FLEXPEN U-100 INSULIN) 100 unit/mL (3 mL) inpn, Take 8 units breakfast, 6 units lunch, and 8 units dinner fluticasone (FLONASE) 50 mcg/actuation nasal spray, Use 2 Sprays in each nostril once daily. Rinse mouth after use. loratadine (CLARITIN) 10 mg tablet, Take 1 tablet by mouth once daily as needed. Blood-Glucose Meter (FREESTYLE LITE METER) monitoring kit, Use to monitor blood sugar Lancing Device (LANCING DEVICE WITH LANCETS) [facility], Use to check blood sugar three times daily. Dx E11.22, N18.3, Z79.4. Insulin: yes RESTASIS 0.05 % ophthalmic emulsion, Use 1 Drop in both eyes twice daily. omega-3 fatty acids 1,000 mg cap, Take 2 capsules by mouth once daily. calcium carbonate 600 mg-cholecalciferol 400 units (CALCIUM 600 + D) 600 mg(1,500mg) -400 unit tab, Take 1 tablet by mouth once daily. lancets(MICROLET LANCET), use as directed [DISCONTINUED] blood sugar diagnostic(ASCENSIA CONTOUR TEST STRIPS), Test Blood sugar once daily 250.00, non insulin dep Physical Exam: 01/04/20 0400 01/04/20 0500 01/04/20 0600 01/04/20 0700 BP: 101/56 138/66 116/71 Pulse: 64 69 65 87 Resp: 22 19 18 16 Temp: TempSrc: SpO2: 98% 95% Weight: Intake/Output: Intake/Output Summary (Last 24 hours) at 01/04/2020 0830 Last data filed at 01/04/2020 0700 Gross per 24 hour Intake 341 ml Output 1150 ml Net -809 ml General: Awake and alert, in no distress, cooperative Neck: Supple without JVD or Lymphadenopathy. No carotid bruits Cardiac: RRR, S1S2 with no MGR Lungs: Clear to auscultation bilaterally Abdomen: Soft non-tender, non-distended, normal bowel sounds Extremities: right forearm bandaged from catheterization site. No deformities, edema, clubbing. Lab Data and Diagnostic Imaging: Recent Labs 01/04/20 0045 01/03/20 2355 01/03/20 1835 TROPI -- 33.900* < > -- WBC -- 11.96* -- 10.82* RBC -- 4.03 -- 4.31 HB -- 12.4 -- 13.0 HCT -- 36.0 -- 38.4 MCV -- 89.3 -- 89.1 MCH -- 30.8 -- 30.2 MCHC -- 34.4 -- 33.9 PLT -- 333 -- 315 MPV -- 11.6 -- 11.2 GLUC -- 202* -- -- BUN -- 37* -- -- CREAT -- 1.43* -- -- NA -- 134* -- -- K -- 4.5 -- -- CHLOR -- 105 -- -- CO2 -- 20* -- -- CA -- 8.8 -- -- PTSEC -- -- -- 10.2 APTT 38.5* -- -- 22.3* INR -- -- -- 0.94 < > = values in this interval not displayed. TSH 3.590 08/29/2019 Triglyceride 334 01/03/2020 HDL Cholesterol 42 01/03/2020 LDL Chol, [place] 99 01/03/2020 Cholesterol, Total 208 01/03/2020 Last 12 Encounter Wt Readings: Date: Wt: 01/03/2020 73.3 kg (161 lb 9.6 oz) 12/30/2019 74.4 kg (164 lb) 11/03/2019 76.7 kg (169 lb) 09/02/2019 75.3 kg (166 lb) 04/28/2019 76.7 kg (169 lb) 04/11/2019 76.7 kg (169 lb) 12/23/2018 76.7 kg (169 lb) 11/11/2018 75.3 kg (166 lb) 11/03/2018 75.3 kg (166 lb) 10/04/2018 75.2 kg (165 lb 12.8 oz) 08/21/2018 77.1 kg (170 lb) 04/22/2018 75.3 kg (166 lb) Echo Complete W/ Contrast 01/03/20 1330 Left Ventricle Normal LV size. Moderate segmental systolic dysfunction (see wall motion). The estimated ejection fraction is 30 %. Diastolic function is indeterminate. Posterior-Basal: Hypokinetic. Infero-Basal: Akinetic. Basal inferoseptal: Akinetic. Mid-Anterior : Hypokinetic. Mid-Lateral : Hypokinetic. Mid-Posterior: Akinetic. Mid-Inferior: Akinetic. Mid-inferoseptal : Akinetic. Anterior [place] : Hypokinetic. Inferior [place] : Dyskinetic. Lateral [place] : Hypokinetic. Septal [place] : Dyskinetic. Right Ventricle Normal RV size. Normal systolic function. Atria The left atrium is mildly enlarged. Normal right atrium. No doppler evidence for ASD. ? Mitral Valve There is no mitral annular calcification. Normal mitral valve. Moderate (2+) mitral valve insufficiency. Tricuspid Valve Normal tricuspid valve. Trivial tricuspid valve insufficiency. Unable to estimate RV systolic pressure/pulmonary artery pressure due to technically difficult study. Aortic Valve Trisinus/trileaflet aortic valve. Mild focal aortic valve calcification. Pulmonic Valve The pulmonic valve is not well visualized. Great Vessels Normal sized aortic root. Pericardium/Pleural No pericardial effusion. ?Interpretation Summary Moderate segmental systolic dysfunction (see wall motion). The estimated ejection fraction is 30 %. The left atrium is mildly enlarged. Moderate (2+) mitral valve insufficiency. Trivial tricuspid valve insufficiency. Mild focal aortic valve calcification. Unable to estimate RV systolic pressure/pulmonary artery pressure due to technically difficult study. Assessment and Plan: Active Hospital Problems Diagnosis - ACS (acute coronary syndrome) (HCC) IMPRESSION: ACS presenting as STEMI with multivessel disease awaiting coronary artery bypass graft eval Coronary artery disease with remote PCI HFrEF Type 2 Diabetes Mellitus on insulin History basal ganglia infarct on Plavix Vertigo Hypertension Dyslipidemia CKD History meningioma ? 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 May be a candidate for PCSK-9 inhibitors Will attempt to have images from catheterization and echocardiogram placed in our system - asked RN to request disc from [facility] Continue with amlodipine Continue with lisinopril C/w IV furosemide 20 mg daily, patient having adequate diuresis Nephrology consult requested by Cardiothoracic Surgery for CKD Heart healthy diet Continue with heparin drip C/w insulin glargine at 9 units and 6 units of lispro with meals with SSI scale 2 Continue with allopurinol SIGNATURE: Patience Adler DO PATIENT NAME: Concha Woowdard DATE: January 04, 2020 TIME: 8:30 AM Pager: [phone] This patient was seen in conjunction with the resident staff, Nursing staff and Clinical Pharmacy. I have personally seen and examined the patient. I have reviewed labs, clinical data and pertinent images. I have discussed the case with the care team. I agree with the documentation, excepts as annotated. Clinical issues addressed on this visit: 1. ACS (acute coronary syndrome) (HCC) - ICD9: 411.1, ICD10: I24.9 Darryn Phillips MD, [facility]. Pager # [phone] Normal [facility] Renal Panelon 01-04-2020 Creatinine [Mass/Vol] 1.51 mg/dL High 0.51-0.95 [facility] Comment on above: Result Comment: Use of this assay is not recommended for patients undergoing treatment with phenindione, due to the potential for falsely depressed results. Performed By: #### P T #### [address] [address] Phosphate [Mass/Vol] 3.0 mg/dL Normal 2.5-4.[address] [facility] Comment on above: Performed By: #### P T #### [facility] [address], [place] [address] Albumin [Mass/Vol] 3.1 g/dL Low 3.4-5.0 [facility] Comment on above: Performed By: #### P T #### [facility] [address], [place] [address] Anion gap [Moles/Vol] 14 mmol/L Normal 8-16 [facility] Comment on above: Performed By: #### P T #### [facility] [address], [place] [address] Calcium [Mass/Vol] 9.0 mg/dL Normal 8.5-10.1 [facility] Comment on above: Performed By: #### P T #### [facility] [address], [place] [address] CO2 [Moles/Vol] 21 mmol/L Normal 21-32 [facility] Comment on above: Performed By: #### P T #### [facility] [address], [place] [address] Glucose [Mass/Vol] 284 mg/dL High 70-99 [facility] Comment on above: Performed By: #### P T #### [facility] [address], [place] [address] Urea nitrogen [Mass/Vol] 38 mg/dL High 7-18 [facility] Comment on above: Performed By: #### P T #### [facility] [address], [place] [address] Chloride [Moles/Vol] 103 mmol/L Normal 98-[address] [facility] Comment on above: Performed By: #### P T #### [facility] [address], [place] [address] Potassium [Moles/Vol] 4.2 mmol/L Normal 3.5-5.1 [facility] Comment on above: Performed By: #### P T #### [facility] [address], [place] [address] Sodium [Moles/Vol] 134 mmol/L Low 136-145 [facility] Comment on above: Performed By: #### P T #### [facility] [address], [place] [address] TSH, 3rd generationon 2019 TSH, 3rd generation 2.180 uIU/mL Normal 0.358-3.740 [facility] Comment on above: Performed By: #### A PTT #### [facility] [address], [place] [address] Troponin Ion 01-04-2020 Troponin I.cardiac [Mass/Vol] 33.900 ng/mL Critically high 0.015-0.045 [facility] Comment on above: Performed By: #### A PTT #### [address] [address] Troponin I.cardiac [Mass/Vol] 45.800 ng/mL Critically high 0.015-0.045 [facility] Comment on above: Result Comment: RESU LT RECHECKED Performed By: #### T ROP #### [address] [address] US KIDNEY/BLADDERon 01-04-20 20 US KIDNEY/BLADDER * * *Final Report* * * DATE OF EXAM: Jan 04 2020 9:46PM [place] 1055 - US KIDNEY/BLADDER / PROCEDURE REASON: Renal failure, chronic (kidney disease) * * * * Physician Interpretation * * * * EXAMINATION: RENAL ULTRASOUND CLINICAL HISTORY: A catheter, chronic kidney disease TECHNIQUE: Sonography of the kidneys and urinary bladder was performed. Images were obtained and stored in a permanent archive. MQ: UR_1 COMPARISON: None RESULT: Right Kidney: -Renal length: 10.9 x 5 x 5.1 cm -Parenchyma: Increased parenchymal echogenicity. Normal parenchymal thickness. -Collecting system: No hydronephrosis. -Calculus: No echogenic, shadowing calculus. -Lesion: None. Left Kidney: -Renal length: 9.7 x 4.2 x 3.9 cm -Parenchyma: Increased parenchymal echogenicity. Normal parenchymal thickness. -Collecting system: No hydronephrosis. -Calculus: No echogenic, shadowing calculus. -Lesion: None. Bladder: Normal sonographic appearance. Prevoid volume: 26 mL. IMPRESSION: Bilaterally increased renal parenchymal echogenicity. This is nonspecific but is most often seen with medical renal disease. Taker Off Drying [employer]: PSCB Transcribe Date/Time: Jan 04 2020 11:22P Dictated by : VISH MOYA MD This examination was interpreted and the report reviewed and electronically signed by: VISH MOYA MD on Jan 04 2020 11:23PM EST Normal [facility] Urine Proteinon 01-04-2020 Protein Ql (U) 65.5 mg/dL High 0.0-11.9 [facility] Comment on above: Performed By: #### P T #### [address] [place], [place] [address] Vitamin B12on 01-04-2020 Cobalamin (Vitamin B12) [Mass/Vol] 1106 pg/mL High 193-986 [facility] Comment on above: Performed By: #### A PTT #### [facility] [address], [place] [address] Activated PTTon 01-03-2020 aPTT Coag (Bld) [Time] 22.3 s Low 23.0-32.4 [facility] Comment on above: Result Comment: Unfr actionated Heparin Therapeutic Ranges: Standard Heparin Nomogram: 53 to 78 seconds (anti-Xa level of 0.3 to 0.7 U/mL) Low Dose/ACS Nomogram: 49 to 67 seconds (anti-Xa level of 0.2 to 0.5 U/mL) Stroke Treatment Nomogram: 49 to 67 seconds (anti-Xa level of 0.2 to 0.5 U/mL) Note: The APTT therapeutic range has been determined for the current lot of laboratory APTT reagent in use throughout the [facility]. Performed By: #### A PTT #### [facility] [address], [place] [address] CONSULTon 01-03-2020 CONSULT HNO ID: [id number] Author: Westley Rosenberg Service: Cardiac Surgery Author Type: Physician Type: Consults Filed: 01/03/2020 6:29 PM Note Text: CARDIOTHORACIC SURGERY CONSULT / HANDP SERVICE DATE: 01/03/2020 SERVICE TIME: 6:20 PM Subjective PRIMARY SERVICE: Cardiothoracic Surgery CHIEF COMPLAINT: NSTEMI, MV CAD HPI: This is a 84 year old woman transferred from [facility] after she presented today with NSTEMI and was found to have severe MV CAD with EF 30%. She had an MO 30 years ago treated with angioplasty. She is now experiencing chest burning while trying to sleep. She denies dyspnea or orthopnea or edema. No MO or CHF in the intervening years. Risk factors include DM, HTN, hyperlipidemia. She states that she is had some upper respiratory illness for the past week. She was started on amoxicillin on Sunday. She states that she still had cough and some mild shortness of breath. She has had remote stroke with left sided weakness, resolved, cause not known. She has CKD with Cr about 1.4-1.5. She did receive ticagrelor today, . Unable to see catheterization report. Transthoracic echocardiogram done at [place] showed left ventricular ejection fraction of 30%, DWMA, no valvular disease. 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 - Diverticulosis of colon (without mention of hemorrhage) - Female stress incontinence 2009 Stress incontinence Very mild - Gout - Internal hemorrhoids without mention of complication - Labyrinthine dysfunction, unspecified 12/26/200810/13 -Seeing ENT, Vestibular Retraining via PT - Other and unspecified hyperlipidemia - Other specified cardiac dysrhythmias(427.89) TACHYCARDIA (SEE ALSO ARRHYTHMIA) SINUS - Pure hypercholesterolemia - Stroke (cerebrum) ([facility]) 2013 - Type II or unspecified type diabetes mellitus without mention of complication, uncontrolled ([facility]) - Unspecified cardiovascular disease - Unspecified essential hypertension - Urgency of urination 2008 PAST SURGICAL HISTORY Procedure Laterality Date - ANGIOPLASTY 1988 - COLONOSCOP W/ OR W/O [facility] SPEC 08/29/07 - LAPAROSCOPIC CHOLEYCYSTECTOMY Cholecystectomy, lap - LEFT HEART CATH,CUTDOWN 1991 - PAST SURGICAL HISTORY OF Tubal FAMILY HISTORY Problem Relation Age of Onset - Heart Mother mi - Heart Father heart disease - Diabetes Maternal Uncle - Cancer Brother Mouth (non smoker) Social History Tobacco Use - Smoking status: Never Smoker - Smokeless tobacco: Never Used Substance Use Topics - Alcohol use: No - Drug use: No cholecalciferol, Vitamin D3, (VITAMIN D3) 1,250 mcg (50,000 unit) cap capsule, Take 1 capsule by mouth two times a week. (ONE CAPSULE) FOR VITAMIN D DEFICIENCY, Disp: 24 capsule, Rfl: 3 albuterol HFA (VENTOLIN HFA) 90 mcg/actuation inhaler, Inhale 2 Puffs as instructed every 4 hours as needed for Wheezing/Shortness of Breath., Disp: 1 Inhaler, Rfl: 0 albuterol HFA (VENTOLIN HFA) 90 mcg/actuation inhaler, Inhale 2 Puffs as instructed every 4 hours as needed for Wheezing/Shortness of Breath., Disp: 1 Inhaler, Rfl: 0 amoxicillin (AMOXIL) 875 mg tablet, Take 1 tablet by mouth twice daily for 10 days., Disp: 20 tablet, Rfl: 0 blood sugar diagnostic (FREESTYLE LITE STRIPS) test strip, TEST BLOOD SUGARS 3 times daily., Disp: 100 Strip, Rfl: 5, Taking insulin glargine (BASAGLAR KWIKPEN U-100 INSULIN) 100 unit/mL (3 mL) inpn, Inject 11 Units subcutaneously every morning., Disp: 5 Pen, Rfl: 5, Taking Insulin [place], Disposable, (BD ULTRA-FINE JOHN PEN NEEDLE) 32 gauge x 5/32 ndle, Use one needle for each dose. 1x/day., Disp: 50 Each, Rfl: 11, Taking amLODIPine (NORVASC) 10 mg tablet, Take 1 tablet by mouth once daily., Disp: 90 tablet, Rfl: 3, Taking lisinopril (ZESTRIL, PRINIVIL) 40 mg tablet, Take 1 tablet by mouth once daily., Disp: 90 tablet, Rfl: 3, Taking carvedilol (COREG) 6.25 mg tablet, Take 1 tablet by mouth twice daily with meals., Disp: 180 tablet, Rfl: 3, Taking allopurinol (ZYLOPRIM) 100 mg tablet, Take 1 tablet by mouth once daily., Disp: 90 tablet, Rfl: 3, Taking clopidogrel (PLAVIX) 75 mg tablet, Take 1 tablet by mouth once daily., Disp: 90 tablet, Rfl: 3, Taking insulin aspart U-100 (NOVOLOG FLEXPEN U-100 INSULIN) 100 unit/mL (3 mL) inpn, Take 8 units breakfast, 6 units lunch, and 8 units dinner, Disp: 15 Pen, Rfl: 3, Taking fluticasone (FLONASE) 50 mcg/actuation nasal spray, Use 2 Sprays in each nostril once daily. Rinse mouth after use. (Patient not taking: Reported on 04/28/2019 ), Disp: 1 Bottle, Rfl: 1, Not Taking loratadine (CLARITIN) 10 mg tablet, Take 1 tablet by mouth once daily as needed., Disp: 30 tablet, Rfl: 1, Taking Blood-Glucose Meter (FREESTYLE LITE METER) monitoring kit, Use to monitor blood sugar, Disp: 1 Each, Rfl: 0, Taking Lancing Device (LANCING DEVICE WITH LANCETS) [facility], Use to check blood sugar three times daily. Dx E11.22, N18.3, Z79.4. Insulin: yes, Disp: 1 Each, Rfl: 5, Taking RESTASIS 0.05 % ophthalmic emulsion, Use 1 Drop in both eyes twice daily., Disp: , Rfl: 3, Taking omega-3 fatty acids 1,000 mg cap, Take 2 capsules by mouth once daily., Disp: , Rfl: 0, Taking calcium carbonate 600 mg-cholecalciferol 400 units (CALCIUM 600 + D) 600 mg(1,500mg) -400 unit tab, Take 1 tablet by mouth once daily., Disp: , Rfl: 0, Taking lancets(MICROLET LANCET), use as directed, Disp: 100, Rfl: 3, Taking cholecalciferol, Vitamin D3, (VITAMIN D3) 1,250 mcg (50,000 unit) cap capsule, Take 1 capsule by mouth two times a week. (ONE CAPSULE) FOR VITAMIN D DEFICIENCY albuterol HFA (VENTOLIN HFA) 90 mcg/actuation inhaler, Inhale 2 Puffs as instructed every 4 hours as needed for Wheezing/Shortness of Breath. albuterol HFA (VENTOLIN HFA) 90 mcg/actuation inhaler, Inhale 2 Puffs as instructed every 4 hours as needed for Wheezing/Shortness of Breath. amoxicillin (AMOXIL) 875 mg tablet, Take 1 tablet by mouth twice daily for 10 days. blood sugar diagnostic (FREESTYLE LITE STRIPS) test strip, TEST BLOOD SUGARS 3 times daily. insulin glargine (BASAGLAR KWIKPEN U-100 INSULIN) 100 unit/mL (3 mL) inpn, Inject 11 Units subcutaneously every morning. Insulin [place], Disposable, (BD ULTRA-FINE JOHN PEN NEEDLE) 32 gauge x 5/32 ndle, Use one needle for each dose. 1x/day. amLODIPine (NORVASC) 10 mg tablet, Take 1 tablet by mouth once daily. lisinopril (ZESTRIL, PRINIVIL) 40 mg tablet, Take 1 tablet by mouth once daily. carvedilol (COREG) 6.25 mg tablet, Take 1 tablet by mouth twice daily with meals. allopurinol (ZYLOPRIM) 100 mg tablet, Take 1 tablet by mouth once daily. clopidogrel (PLAVIX) 75 mg tablet, Take 1 tablet by mouth once daily. insulin aspart U-100 (NOVOLOG FLEXPEN U-100 INSULIN) 100 unit/mL (3 mL) inpn, Take 8 units breakfast, 6 units lunch, and 8 units dinner fluticasone (FLONASE) 50 mcg/actuation nasal spray, Use 2 Sprays in each nostril once daily. Rinse mouth after use. loratadine (CLARITIN) 10 mg tablet, Take 1 tablet by mouth once daily as needed. Blood-Glucose Meter (FREESTYLE LITE METER) monitoring kit, Use to monitor blood sugar Lancing Device (LANCING DEVICE WITH LANCETS) [facility], Use to check blood sugar three times daily. Dx E11.22, N18.3, Z79.4. Insulin: yes RESTASIS 0.05 % ophthalmic emulsion, Use 1 Drop in both eyes twice daily. omega-3 fatty acids 1,000 mg cap, Take 2 capsules by mouth once daily. calcium carbonate 600 mg-cholecalciferol 400 units (CALCIUM 600 + D) 600 mg(1,500mg) -400 unit tab, Take 1 tablet by mouth once daily. lancets(MICROLET LANCET), use as directed [DISCONTINUED] blood sugar diagnostic(ASCENSIA CONTOUR TEST STRIPS), Test Blood sugar once daily 250.00, non insulin dep ALLERGIES Allergen Reactions - Bactrim [Sulfametho* Vomiting - Codeine Vomiting - Prednisone Vomiting - Statins [Statins-Hm* Intolerance - Ultram [Tramadol Hc* Vomiting REVIEW OF SYSTEMS: above Objective PHYSICAL EXAM: There were no vitals taken for this visit. General: Awake and alert, in no distress, cooperative Neck: Supple without JVD or Lymphadenopathy Cardiac: RRR, S1S2 with no MGR Lungs: Clear to auscultation bilaterally Abdomen: Soft non-tender, non-distended, normal bowel sounds Extremities: No deformities, edema, clubbing or skin discoloration. STS RISK CALCULATOR:NA Lines, Drains, and Airways None DATA: Diagnostic tests reviewed for today's visit: cath and echo imaging pending Assessment/Plan Concha Woodward is a 84 year old woman with a h/o CAD and remote MO now admitted with NSTEMI who is found to have severe MV CAD and ischemic CM with EF 30%, no CHF, in a setting of DM,HTN,HLD, CKD, remote CVA. Cath imaging will be reviewed by Heart Team and further recommendations to follow. If to proceed to CABG, will need: 1 Brilinta washout [address] chest 4 renal consult SIGNATURE: Westley Rosenberg MD PATIENT NAME: Concha Woodward DATE: January 03, 2020 TIME: 6:20 PM PAGER/CONTACT #: [phone] Normal [facility] HISTORY PHYSICALon 0 HISTORY PHYSICAL HNO ID: [id number] Author: Darryn Phillips Service: Cardiovascular Medicine Author Type: Physician Type: HANDP Filed: 01/05/2020 9:48 AM Note Text: [facility] Cardiovascular Intensive Care Unit HANDP SERVICE DATE: 01/03/2020 SERVICE TIME: 5:08 PM Reason for admit: ACS, multivessel coronary artery disease awaiting coronary artery bypass graft eval HPI: This is a 84 year old female who was admitted for coronary artery bypass graft eval after presenting as a STEMI to [place]. Per [facility]'s notes: The patient presents to the emergency department with chest pain. Patient is an 84-year-old female with history of prior MO 30 years ago treated with angioplasty. She also has history of diabetes and and prior stroke. She states that she is had some upper respiratory illness for the past week. She was started on amoxicillin on Sunday. She states that she still had cough and some mild shortness of breath. Over the past 24-48 hours, she began to have chest pain. She describes it as substernal and will radiate to both arms. She did use an albuterol inhaler yesterday which seemed to make her pain much worse. She states that now, she just has a very mild twinge in her central chest. She denies nausea. She states she is otherwise been in her normal state of health. EKG done in the emergency room revealed Q waves in III and aVF along with ST elevation. It was felt that patient was presenting late with acute ST elevation MO but due to ongoing chest pain that was about 2/10 in intensity she was evaluated and brought emergently to the cardiac Grooving Machine Operator for coronary angiography. Because of acute on chronic kidney disease LV gram was not done. Coronary angiography revealed multivessel coronary artery disease with MARTIN-3 flow in all the vessels. Currently chest pain free, it was rated as 5/10 at its worst, substernally and described as pressure. She has still been coughing today, no fevers or chills. She denies orthopnea or paroxysmal nocturnal dyspnea recently. No lower extremity edema. Has been on insulin for 3 years. Has symptoms of lows about 1x per month. Has been taking insulin regularly, able to recall doses accurately. Per chart review, she did receive ticagrelor today, . Unable to see catheterization report. transthoracic echocardiogram done at [place] showed left ventricular ejection fraction of 30%, DWMA, no valvular disease. I spoke with the mirror fabrication supervisor at [place] who left me a voicemail stating they sent the disc with catheterization images on it, however I could not find it in her chart, RN and director of pulmonary unit were also unable to find a disc with the patient's records. EKG reviewed, showed sinus rhythm with ST elevations in III and aVF as well as incomplete RBBB. 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 - Diverticulosis of colon (without mention of hemorrhage) - Female stress incontinence 2009 Stress incontinence Very mild - Gout - Internal hemorrhoids without mention of complication - Labyrinthine dysfunction, unspecified 12/26/200810/13 -Seeing ENT, Vestibular Retraining via PT - Other and unspecified hyperlipidemia - Other specified cardiac dysrhythmias(427.89) TACHYCARDIA (SEE ALSO ARRHYTHMIA) SINUS - Pure hypercholesterolemia - Stroke (cerebrum) ([facility]) 2013 - Type II or unspecified type diabetes mellitus without mention of complication, uncontrolled ([facility]) - Unspecified cardiovascular disease - Unspecified essential hypertension - Urgency of urination 2008 PAST SURGICAL HISTORY Procedure Laterality Date - ANGIOPLASTY 1988 - COLONOSCOP W/ OR W/O [facility] SPEC 08/29/07 - LAPAROSCOPIC CHOLEYCYSTECTOMY Cholecystectomy, lap - LEFT HEART CATH,CUTDOWN 1991 - PAST SURGICAL HISTORY OF Tubal FAMILY HISTORY Problem Relation Age of Onset - Heart Mother mi - Heart Father heart disease - Diabetes Maternal Uncle - Cancer Brother Mouth (non smoker) Social History Tobacco Use - Smoking status: Never Smoker - Smokeless tobacco: Never Used Substance Use Topics - Alcohol use: No - Drug use: No MEDICATIONS: Prior to Admission Medications: cholecalciferol, Vitamin D3, (VITAMIN D3) 1,250 mcg (50,000 unit) cap capsule, Take 1 capsule by mouth two times a week. (ONE CAPSULE) FOR VITAMIN D DEFICIENCY albuterol HFA (VENTOLIN HFA) 90 mcg/actuation inhaler, Inhale 2 Puffs as instructed every 4 hours as needed for Wheezing/Shortness of Breath. albuterol HFA (VENTOLIN HFA) 90 mcg/actuation inhaler, Inhale 2 Puffs as instructed every 4 hours as needed for Wheezing/Shortness of Breath. amoxicillin (AMOXIL) 875 mg tablet, Take 1 tablet by mouth twice daily for 10 days. blood sugar diagnostic (FREESTYLE LITE STRIPS) test strip, TEST BLOOD SUGARS 3 times daily. insulin glargine (BASAGLAR KWIKPEN U-100 INSULIN) 100 unit/mL (3 mL) inpn, Inject 11 Units subcutaneously every morning. Insulin [place], Disposable, (BD ULTRA-FINE JOHN PEN NEEDLE) 32 gauge x 5/32 ndle, Use one needle for each dose. 1x/day. amLODIPine (NORVASC) 10 mg tablet, Take 1 tablet by mouth once daily. lisinopril (ZESTRIL, PRINIVIL) 40 mg tablet, Take 1 tablet by mouth once daily. carvedilol (COREG) 6.25 mg tablet, Take 1 tablet by mouth twice daily with meals. allopurinol (ZYLOPRIM) 100 mg tablet, Take 1 tablet by mouth once daily. clopidogrel (PLAVIX) 75 mg tablet, Take 1 tablet by mouth once daily. insulin aspart U-100 (NOVOLOG FLEXPEN U-100 INSULIN) 100 unit/mL (3 mL) inpn, Take 8 units breakfast, 6 units lunch, and 8 units dinner fluticasone (FLONASE) 50 mcg/actuation nasal spray, Use 2 Sprays in each nostril once daily. Rinse mouth after use. loratadine (CLARITIN) 10 mg tablet, Take 1 tablet by mouth once daily as needed. Blood-Glucose Meter (FREESTYLE LITE METER) monitoring kit, Use to monitor blood sugar Lancing Device (LANCING DEVICE WITH LANCETS) [facility], Use to check blood sugar three times daily. Dx E11.22, N18.3, Z79.4. Insulin: yes RESTASIS 0.05 % ophthalmic emulsion, Use 1 Drop in both eyes twice daily. omega-3 fatty acids 1,000 mg cap, Take 2 capsules by mouth once daily. calcium carbonate 600 mg-cholecalciferol 400 units (CALCIUM 600 + D) 600 mg(1,500mg) -400 unit tab, Take 1 tablet by mouth once daily. lancets(MICROLET LANCET), use as directed [DISCONTINUED] blood sugar diagnostic(ASCENSIA CONTOUR TEST STRIPS), Test Blood sugar once daily 250.00, non insulin dep Current Facility-Administered Medications Medication Dose Route Frequency - carvedilol 6.25 mg tab(s) (COREG) 6.25 mg ORAL BID w MEALS - lisinopril 40 mg tab(s) (ZESTRIL, PRINIVIL) 40 mg ORAL DAILY - albuterol 2.5 mg /3 mL (0.083 %) 2.5 mg (PROVENTIL) 2.5 mg INHALATION q 4 H PRN - amLODIPine 10 mg tab(s) (NORVASC) 10 mg ORAL DAILY - allopurinol 100 mg tab(s) (ZYLOPRIM) 100 mg ORAL DAILY - aspirin 81 mg chewable tab(s) 81 mg ORAL DAILY - nitroglycerin sublingual 0.4 mg tab(s) (NITROQUICK) 0.4 mg SUBLINGUAL PRN - potassium chloride ER 20-40 mEq tab(s) (K-DUR, KLOR-CON) 20-40 mEq ORAL/FEEDING TUBE PRN Or - potassium chloride iv piggyback 20 mEq/100 mL 20 mEq INTRAVENOUS PRN - magnesium sulfate in water 2 g in sterile water 50 ml 2 g INTRAVENOUS PRN - sodium phosphate 45 mmol in NaCl 0.9% 250 mL 45 mmol INTRAVENOUS PRN - calcium gluconate 4 g in NaCl 0.9% 250 mL 4 g INTRAVENOUS PRN - heparin iv infusion (LOW DOSE ACS/NOMOGRAM) 25,000 units in NaCl 0.45% 250 mL PREMIX 0-3,000 Units/hr INTRAVENOUS CONTINUOUS And - heparin RATE CHANGE bolus 1,000-4,000 Units for subtherapeutic aptt results 1,000-4,000 Units INTRAVENOUS PRN - dextrose 40 % 15 g 15 g ORAL PRN Or - glucagon 1 mg injection (GLUCAGEN) 1 mg INTRAMUSCULAR PRN Or - dextrose 50% in water 25 mL syringe 12.5 g INTRAVENOUS PRN - NaCl 0.9% 3-5 mL 3-5 mL INTRAVENOUS q 12 H - atorvastatin 10 mg tab(s) (LIPITOR) 10 mg ORAL AT BEDTIME - ezetimibe 10 mg tab(s) (ZETIA) 10 mg ORAL DAILY - mupirocin 2 % ointment (BACTROBAN) TOPICAL TID - folic acid 1 mg tab(s) 1 mg ORAL DAILY - ferrous sulfate 325 mg tab(s) 325 mg ORAL BID w MEALS - senna-docusate 8.6-50 mg 1 tablet (SENNA-S) 1 tablet ORAL BID - ascorbic acid (vitamin C) 500 mg tab(s) (VITAMIN C) 500 mg ORAL BID - insulin lispro 0-10 Units pen (rapid acting) (HumaLOG KWIKPEN) 0-10 Units SUBCUTANEOUS w MEALS - [START ON 01/05/2020] insulin glargine 12 Units pen (long acting) (LANTUS SOLOSTAR, BASAGLAR KWIKPEN) 12 Units SUBCUTANEOUS DAILY (8 AM) - insulin lispro 8 Units pen (rapid acting) (HumaLOG KWIKPEN) 8 Units SUBCUTANEOUS w MEALS - [START ON 01/05/2020] furosemide 40 mg tab(s) (LASIX) 40 mg ORAL DAILY ALLERGIES: ALLERGIES Allergen Reactions - Bactrim [Sulfametho* Vomiting - Codeine Vomiting - Prednisone Vomiting - Statins [Statins-Hm* Intolerance - Ultram [Tramadol Hc* Vomiting COMPLETE REVIEW OF SYSTEMS: 10 point Review of Systems performed and negative except as in HPI PHYSICAL EXAM: 01/04/20 0700 01/04/20 0800 01/04/20 0900 01/04/20 1000 BP: 116/71 132/72 110/69 Pulse: 87 74 84 83 Resp: 16 14 20 19 Temp: TempSrc: SpO2: 95% 98% 99% Weight: General: Awake and alert, in no distress, cooperative Neck: Supple without JVD or Lymphadenopathy. No carotid bruits Cardiac: RRR, S1S2 with no MGR Lungs: Clear to auscultation bilaterally Abdomen: Soft non-tender, non-distended, normal bowel sounds Extremities: right forearm bandaged from catheterization site, bruising present tracking up ventral forearm. No deformities, edema, clubbing. DATA: Diagnostic tests reviewed for today's visit: Most recent labs and imaging results. Echo Complete W/ Contrast 01/03/20 1330 MR#: [id number] Acct: [id number] Name: CONCHA WOODWARD I Rep #: [id number] : 1935 [id number] From: Wenceslao Mason MD Attending Dr: Maty Noel MD Status: ADM IN Ordering Dr: Gomez Noel MD Date: 01/03/20 Location: ICU Sex: F C Admitted: 01/03/20 Reason For Study: s/p MO Procedure This was a 2D Doppler, Color Flow transthoracic echocardiogram. The study was technically difficult. Contrast injection was performed. Exam performed portable in ICU/CCU. Left Ventricle Normal LV size. Moderate segmental systolic dysfunction (see wall motion). The estimated ejection fraction is 30 %. Diastolic function is indeterminate. Posterior-Basal: Hypokinetic. Infero-Basal: Akinetic. Basal inferoseptal: Akinetic. Mid-Anterior : Hypokinetic. Mid-Lateral : Hypokinetic. Mid-Posterior: Akinetic. Mid-Inferior: Akinetic. Mid-inferoseptal : Akinetic. Anterior [place] : Hypokinetic. Inferior [place] : Dyskinetic. Lateral [place] : Hypokinetic. Septal [place] : Dyskinetic. Right Ventricle Normal RV size. Normal systolic function. Atria The left atrium is mildly enlarged. Normal right atrium. No doppler evidence for ASD. Mitral Valve There is no mitral annular calcification. Normal mitral valve. Moderate (2+) mitral valve insufficiency. Tricuspid Valve Normal tricuspid valve. Trivial tricuspid valve insufficiency. Unable to estimate RV systolic pressure/pulmonary artery pressure due to technically difficult study. Aortic Valve Trisinus/trileaflet aortic valve. Mild focal aortic valve calcification. Pulmonic Valve The pulmonic valve is not well visualized. Great Vessels Normal sized aortic root. Pericardium/Pleural No pericardial effusion. Medication Diluted definity 6ml given slow IV push to enhance endocardial definition. MMode/2D Measurements AND Calculations LVIDd: 4.4 cm IVSd: 1.0 cm Ao root diam: 2.6 cm LVIDs: 3.3 cm LVPWd: 0.85 cm RVDd: 2.1 cm FS: 25.7 % LAV(MOD-bp): 34.3 ml LVAd ap4: 24.7 cm2 SV(MOD-sp4): 25.3 ml LAV(MOD-bp) Indexed: 19.4 ml/m2 EDV(MOD-sp4): 73.3 ml LAV(MOD-sp2): 36.0 ml EDV(sp4-el): 74.6 ml LAV(MOD-sp4): 32.0 ml LVAs ap4: 18.2 cm2 ESV(MOD-sp4): 48.1 ml ESV(sp4-el): 50.1 ml EF(MOD-sp4): 34.5 % EF(sp4-el): 32.8 % SV(sp4-el): 24.4 ml LA A4 area: 13.6 cm2 LA dimension(2D): 3.7 cm RA A4 area: 9.5 cm2 Doppler Measurements AND Calculations MV E max sidra: 81.5 cm/sec Lat Peak E' Sidra: 5.8 cm/sec Med Peak E' Sidra: 4.1 cm/sec MV A max sidra: 107.7 cm/sec E/E' lat: 14.0 E/E' med: 19.7 MV E/A: 0.76 Ao V2 max: 130.6 cm/sec LV V1 max: 94.1 cm/sec PA V2 max: 69.6 cm/sec Ao max P.8 mmHg LV V1 max P.5 mmHg Ao V2 mean: 84.5 cm/sec Ao mean P.2 mmHg Ao V2 VTI: 26.4 cm Interpretation Summary The study was technically difficult. Contrast injection was performed. Moderate segmental systolic dysfunction (see wall motion). The estimated ejection fraction is 30 %. The left atrium is mildly enlarged. Moderate (2+) mitral valve insufficiency. Trivial tricuspid valve insufficiency. Mild focal aortic valve calcification. Unable to estimate RV systolic pressure/pulmonary artery pressure due to technically difficult study. Diastolic function is indeterminate. Ordering Physician: Gomez Noel Referring Physician: Anju Pearce Performed By: Myriam Horton, RDCS, RVT 01/03/20 1452 Date Wenceslao Mason MD CC: Anju Pearce MD; Maty Noel MD Date Dictated: 01/03/20 133 Date Transcribed: 01/03/20 1452 Cr 1.52 Hemoglobin 12.8 Troponin 4.62 Assessment/Plan IMPRESSION: ACS presenting as STEMI with multivessel disease awaiting coronary artery bypass graft eval Coronary artery disease with remote PCI Type 2 Diabetes Mellitus on insulin History basal ganglia infarct Vertigo Hypertension Dyslipidemia History meningioma PLAN: Neurologic Monitor Pulmonary Albuterol as needed Cardiovascular Trend troponins Consult Cardiothoracic Surgery Got ticagrelor , await washout Start aspirin Would like to trial water soluble statin but we do not have any on formulary. Will start atorvastatin at 10 mg given patient reported myopathy on many trials of statins in the past May be a candidate for PCSK-9 inhibitors Will attempt to have images from catheterization and echocardiogram placed in our system - asked RN to request disc from [place] Continue with amlodipine Continue with lisinopril Start iv furosemide 20 mg daily Check NT BNP Renal/Fluids/Electrolyt es Hold fluids Noted Nephrology consult requested by Cardiothoracic Surgery, will place GI/Metabolic/Nutrition Heart healthy diet Hematologic/Infectious Disease Continue with heparin drip Endocrinology Check a1c Check lipid panel Resume insulin glargine at 9 units Noted aspart with meals on home dosing, will go with 6 units of lispro with meals Add sliding scale Insulin Musculoskeletal Continue with allopurinol SIGNATURE: Colleen Rashid MD PATIENT NAME: Concha Woodward DATE: January 03, 2020 TIME: 5:08 PM PAGER: [phone] This patient was seen in conjunction with the resident staff, Nursing staff and Clinical Pharmacy. I have personally seen and examined the patient. I have reviewed labs, clinical data and pertinent images. I have discussed the case with the care team. I agree with the documentation, excepts as annotated. Patient who presented to [facility] with acute coronary syndrome within the past 48 hours. Underwent cardiac catheterization which revealed multivessel disease. She was transferred for further care at [facility]. Coronary artery bypass is being contemplated. The patient received the [place] yesterday aspirin for acute management. We will have to allow for antiplatelet washout prior to committing the patient to surgery. She remains clinically stable at present time. We will transfer to the floor for further care. Also reported history of EF 30%. No evidence of clinical decompensation. Clinical issues addressed on this visit: 1. ACS (acute coronary syndrome) (HCC) - ICD9: 411.1, ICD10: I24.9 2. Chronic systolic LV heart failure. Darryn Phillips MD, [facility]. Pager # [phone] [facility] HOSPon 01-03-2020 HOSP Patient:Concha Woodward I MRN: Height:5' 3(1.6 m) Weight:158 lb 11.2 oz (71.986 kg) Outpatient Medications as of 01/09/20: white petrolatum-mineral oil (SYSTANE NIGHTTIME) 94-3 % ophthalmic ointment cholecalciferol, Vitamin D3, (VITAMIN D3) 1,250 mcg (50,000 unit) cap capsule amoxicillin (AMOXIL) 875 mg tablet insulin glargine (BASAGLAR KWIKPEN U-100 INSULIN) 100 unit/mL (3 mL) inpn amLODIPine (NORVASC) 10 mg tablet lisinopril (ZESTRIL, PRINIVIL) 40 mg tablet carvedilol (COREG) 6.25 mg tablet allopurinol (ZYLOPRIM) 100 mg tablet clopidogrel (PLAVIX) 75 mg tablet insulin aspart U-100 (NOVOLOG FLEXPEN U-100 INSULIN) 100 unit/mL (3 mL) inpn RESTASIS 0.05 % ophthalmic emulsion [place]-3 Fatty Acids 1,250 mg cap calcium carbonate 600 mg-cholecalciferol 400 units (CALCIUM 600 + D) 600 mg(1,500mg) -400 unit tab blood sugar diagnostic(ASCENSIA CONTOUR TEST STRIPS) Admission/Clinic Administered Medications as of 01/09/20: ceFAZolin iv piggyback 2 g in D5W (iso-osmotic) 100 mL (ANCEF) white petrolatum-mineral oil opthalmic ointment (Soothe Lubricant Eye Night Time Ointment) metoprolol tartrate (short acting) 25 mg tab(s) (LOPRESSOR) hydrALAZINE 10 mg injection (APRESOLINE) hydrOXYzine HCl 12.5 mg tab(s) (ATARAX) mupirocin 2 % ointment (BACTROBAN) folic acid 1 mg tab(s) ferrous sulfate 325 mg tab(s) senna-docusate 8.6-50 mg 1 tablet (SENNA-S) ascorbic acid (vitamin C) 500 mg tab(s) (VITAMIN C) insulin lispro 0-10 Units pen (rapid acting) (HumaLOG KWIKPEN) insulin glargine 12 Units pen (long acting) (LANTUS SOLOSTAR, BASAGLAR KWIKPEN) insulin lispro 8 Units pen (rapid acting) (HumaLOG KWIKPEN) albuterol 2.5 mg /3 mL (0.083 %) 2.5 mg (PROVENTIL) amLODIPine 10 mg tab(s) (NORVASC) allopurinol 100 mg tab(s) (ZYLOPRIM) aspirin 81 mg chewable tab(s) nitroglycerin sublingual 0.4 mg tab(s) (NITROQUICK) potassium chloride ER 20-40 mEq tab(s) (K-DUR, KLOR-CON) potassium chloride iv piggyback 20 mEq/100 mL magnesium sulfate in water 2 g in sterile water 50 ml sodium phosphate 45 mmol in NaCl 0.9% 250 mL calcium gluconate 4 g in NaCl 0.9% 250 mL heparin RATE CHANGE bolus 1,000-4,000 Units for subtherapeutic aptt results dextrose 40 % 15 g glucagon 1 mg injection (GLUCAGEN) dextrose 50% in water 25 mL syringe NaCl 0.9% 3-5 mL atorvastatin 10 mg tab(s) (LIPITOR) ezetimibe 10 mg tab(s) (ZETIA) Problem List: Hypertension goal BP (blood pressure) < 150/90 [I10] Pure hypercholesterolemia [E78.00] Osteopenia [M89.9, M94.9] 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] History of gout [Z87.39] Type 2 diabetes mellitus with stage 3 chronic kidney disease, with long-term current use of insulin (HCC) [E11.22, N18.3, Z79.4] History of CVA (cerebrovascular accident) [Z86.73] Hyperuricemia [E79.0] Diarrhea, unspecified [R19.7] ACS (acute coronary syndrome) ([facility]) [I24.9] Allergies: Bactrim [Sulfamethoxazole-Trime thoprim] Codeine Prednisone Statins [Pgycxys-Mdq-Woj Reductase Inhibitors] Ultram [Tramadol Hcl] Date Verified: 01/08/20 Lab Values Lab Value Units Date High Low POTA* 4.0 mEq/L 01/09/2020 5.1 3.5 ALEX* 31.4 % 01/09/2020 44.9 34.1 Progress Notes ([facility]): Luann Nieto 01/06/2020 9:46 AM Signed Pt schedule to have CABG on 01/09/20 Progress Notes (): Darryn Phillips MD 01/05/2020 9:48 AM [facility]um [facility] HANDP SERVICE DATE: 01/03/2020 SERVICE TIME: 5:08 PM Reason for admit: ACS, multivessel coronary artery disease awaiting coronary artery bypass graft eval HPI: This is a 84 year old female who was admitted for coronary artery bypass graft eval after presenting as a STEMI to [facility]. Per [facility]'s notes: The patient presents to the emergency department with chest pain. Patient is an 84-year-old female with history of prior MO 30 years ago treated with angioplasty. She also has history of diabetes and and prior stroke. She states that she is had some upper respiratory illness for the past week. She was started on amoxicillin on Sunday. She states that she still had cough and some mild shortness of breath. Over the past 24-48 hours, she began to have chest pain. She describes it as substernal and will radiate to both arms. She did use an albuterol inhaler yesterday which seemed to make her pain much worse. She states that now, she just has a very mild twinge in her central chest. She denies nausea. She states she is otherwise been in her normal state of health. EKG done in the emergency room revealed Q waves in III and aVF along with ST elevation. It was felt that patient was presenting late with acute ST elevation MO but due to ongoing chest pain that was about 2/10 in intensity she was evaluated and brought emergently to the cardiac Grooving Machine Operator for coronary angiography. Because of acute on chronic kidney disease LV gram was not done. Coronary angiography revealed multivessel coronary artery disease with MARTIN-3 flow in all the vessels. Currently chest pain free, it was rated as 5/10 at its worst, substernally and described as pressure. She has still been coughing today, no fevers or chills. She denies orthopnea or paroxysmal nocturnal dyspnea recently. No lower extremity edema. Has been on insulin for 3 years. Has symptoms of lows about 1x per month. Has been taking insulin regularly, able to recall doses accurately. Per chart review, she did receive ticagrelor today, . Unable to see catheterization report. transthoracic echocardiogram done at [place] showed left ventricular ejection fraction of 30%, DWMA, no valvular disease. I spoke with the mirror fabrication supervisor at [place] who left me a voicemail stating they sent the disc with catheterization images on it, however I could not find it in her chart, RN and director of pulmonary unit were also unable to find a disc with the patient's records. EKG reviewed, showed sinus rhythm with ST elevations in III and aVF as well as incomplete RBBB. 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 - Diverticulosis of colon (without mention of hemorrhage) - Female stress incontinence 2008 Stress incontinence Very mild - Gout - Internal hemorrhoids without mention of complication - Labyrinthine dysfunction, unspecified 12/26/200810/13 -Seeing ENT, Vestibular Retraining via PT - Other and unspecified hyperlipidemia - Other specified cardiac dysrhythmias(427.89) TACHYCARDIA (SEE ALSO ARRHYTHMIA) SINUS - Pure hypercholesterolemia - Stroke (cerebrum) ([facility]) 2013 - Type II or unspecified type diabetes mellitus without mention of complication, uncontrolled ([facility]) - Unspecified cardiovascular disease - Unspecified essential hypertension - Urgency of urination 2008 PAST SURGICAL HISTORY Procedure Laterality Date - ANGIOPLASTY 1988 - COLONOSCOP W/ OR W/O [facility] SPEC 08/29/07 - LAPAROSCOPIC CHOLEYCYSTECTOMY Cholecystectomy, lap - LEFT HEART CATH,CUTDOWN 1991 - PAST SURGICAL HISTORY OF Tubal FAMILY HISTORY Problem Relation Age of Onset - Heart Mother mi - Heart Father heart disease - Diabetes Maternal Uncle - Cancer Brother Mouth (non smoker) Social History Tobacco Use - Smoking status: Never Smoker - Smokeless tobacco: Never Used Substance Use Topics - Alcohol use: No - Drug use: No MEDICATIONS: Prior to Admission Medications: cholecalciferol, Vitamin D3, (VITAMIN D3) 1,250 mcg (50,000 unit) cap capsule, Take 1 capsule by mouth two times a week. (ONE CAPSULE) FOR VITAMIN D DEFICIENCY albuterol HFA (VENTOLIN HFA) 90 mcg/actuation inhaler, Inhale 2 Puffs as instructed every 4 hours as needed for Wheezing/Shortness of Breath. albuterol HFA (VENTOLIN HFA) 90 mcg/actuation inhaler, Inhale 2 Puffs as instructed every 4 hours as needed for Wheezing/Shortness of Breath. amoxicillin (AMOXIL) 875 mg tablet, Take 1 tablet by mouth twice daily for 10 days. blood sugar diagnostic (FREESTYLE LITE STRIPS) test strip, TEST BLOOD SUGARS 3 times daily. insulin glargine (BASAGLAR KWIKPEN U-100 INSULIN) 100 unit/mL (3 mL) inpn, Inject 11 Units subcutaneously every morning. Insulin [place], Disposable, (BD ULTRA-FINE JOHN PEN NEEDLE) 32 gauge x 32 ndle, Use one needle for each dose. 1x/day. amLODIPine (NORVASC) 10 mg tablet, Take 1 tablet by mouth once daily. lisinopril (ZESTRIL, PRINIVIL) 40 mg tablet, Take 1 tablet by mouth once daily. carvedilol (COREG) 6.25 mg tablet, Take 1 tablet by mouth twice daily with meals. allopurinol (ZYLOPRIM) 100 mg tablet, Take 1 tablet by mouth once daily. clopidogrel (PLAVIX) 75 mg tablet, Take 1 tablet by mouth once daily. insulin aspart U-100 (NOVOLOG FLEXPEN U-100 INSULIN) 100 unit/mL (3 mL) inpn, Take 8 units breakfast, 6 units lunch, and 8 units dinner fluticasone (FLONASE) 50 mcg/actuation nasal spray, Use 2 Sprays in each nostril once daily. Rinse mouth after use. loratadine (CLARITIN) 10 mg tablet, Take 1 tablet by mouth once daily as needed. Blood-Glucose Meter (FREESTYLE LITE METER) monitoring kit, Use to monitor blood sugar Lancing Device (LANCING DEVICE WITH LANCETS) [facility], Use to check blood sugar three times daily. Dx E11.22, N18.3, Z79.4. Insulin: yes RESTASIS 0.05 % ophthalmic emulsion, Use 1 Drop in both eyes twice daily. omega-3 fatty acids 1,000 mg cap, Take 2 capsules by mouth once daily. calcium carbonate 600 mg-cholecalciferol 400 units (CALCIUM 600 + D) 600 mg(1,500mg) -400 unit tab, Take 1 tablet by mouth once daily. lancets(MICROLET LANCET), use as directed [DISCONTINUED] blood sugar diagnostic(ASCENSIA CONTOUR TEST STRIPS), Test Blood sugar once daily 250.00, non insulin dep Current Facility-Administered Medications Medication Dose Route Frequency - carvedilol 6.25 mg tab(s) (COREG) 6.25 mg ORAL BID w MEALS - lisinopril 40 mg tab(s) (ZESTRIL, PRINIVIL) 40 mg ORAL DAILY - albuterol 2.5 mg /3 mL (0.083 %) 2.5 mg (PROVENTIL) 2.5 mg INHALATION q 4 H PRN - amLODIPine 10 mg tab(s) (NORVASC) 10 mg ORAL DAILY - allopurinol 100 mg tab(s) (ZYLOPRIM) 100 mg ORAL DAILY - aspirin 81 mg chewable tab(s) 81 mg ORAL DAILY - nitroglycerin sublingual 0.4 mg tab(s) (NITROQUICK) 0.4 mg SUBLINGUAL PRN - potassium chloride ER 20-40 mEq tab(s) (K-DUR, KLOR-CON) 20-40 mEq ORAL/FEEDING TUBE PRN Or - potassium chloride iv piggyback 20 mEq/100 mL 20 mEq INTRAVENOUS PRN - magnesium sulfate in water 2 g in sterile water 50 ml 2 g INTRAVENOUS PRN - sodium phosphate 45 mmol in NaCl 0.9% 250 mL 45 mmol INTRAVENOUS PRN - calcium gluconate 4 g in NaCl 0.9% 250 mL 4 g INTRAVENOUS PRN - heparin iv infusion (LOW DOSE ACS/NOMOGRAM) 25,000 units in NaCl 0.45% 250 mL PREMIX 0-3,000 Units/hr INTRAVENOUS CONTINUOUS And - heparin RATE CHANGE bolus 1,000-4,000 Units for subtherapeutic aptt results 1,000-4,000 Units INTRAVENOUS PRN - dextrose 40 % 15 g 15 g ORAL PRN Or - glucagon 1 mg injection (GLUCAGEN) 1 mg INTRAMUSCULAR PRN Or - dextrose 50% in water 25 mL syringe 12.5 g INTRAVENOUS PRN - NaCl 0.9% 3-5 mL 3-5 mL INTRAVENOUS q 12 H - atorvastatin 10 mg tab(s) (LIPITOR) 10 mg ORAL AT BEDTIME - ezetimibe 10 mg tab(s) (ZETIA) 10 mg ORAL DAILY - mupirocin 2 % ointment (BACTROBAN) TOPICAL TID - folic acid 1 mg tab(s) 1 mg ORAL DAILY - ferrous sulfate 325 mg tab(s) 325 mg ORAL BID w MEALS - senna-docusate 8.6-50 mg 1 tablet (SENNA-S) 1 tablet ORAL BID - ascorbic acid (vitamin C) 500 mg tab(s) (VITAMIN C) 500 mg ORAL BID - insulin lispro 0-10 Units pen (rapid acting) (HumaLOG KWIKPEN) 0-10 Units SUBCUTANEOUS w MEALS - [START ON 01/05/2020] insulin glargine 12 Units pen (long acting) (LANTUS SOLOSTAR, BASAGLAR KWIKPEN) 12 Units SUBCUTANEOUS DAILY (8 AM) - insulin lispro 8 Units pen (rapid acting) (HumaLOG KWIKPEN) 8 Units SUBCUTANEOUS w MEALS - [START ON 01/05/2020] furosemide 40 mg tab(s) (LASIX) 40 mg ORAL DAILY ALLERGIES: ALLERGIES Allergen Reactions - Bactrim [Sulfametho* Vomiting - Codeine Vomiting - Prednisone Vomiting - Statins [Statins-Hm* Intolerance - Ultram [Tramadol Hc* Vomiting COMPLETE REVIEW OF SYSTEMS: 10 point Review of Systems performed and negative except as in HPI PHYSICAL EXAM: 01/04/20 0700 01/04/20 0800 01/04/20 0900 01/04/20 1000 BP: 116/71 132/72 110/69 Pulse: 87 74 84 83 Resp: 16 14 20 19 Temp: TempSrc: SpO2: 95% 98% 99% Weight: General: Awake and alert, in no distress, cooperative Neck: Supple without JVD or Lymphadenopathy. No carotid bruits Cardiac: RRR, S1S2 with no MGR Lungs: Clear to auscultation bilaterally Abdomen: Soft non-tender, non-distended, normal bowel sounds Extremities: right forearm bandaged from catheterization site, bruising present tracking up ventral forearm. No deformities, edema, clubbing. DATA: Diagnostic tests reviewed for today's visit: Most recent labs and imaging results. Echo Complete W/ Contrast 01/03/20 1330 MR#: [id number] Acct: [id number] Name: CONCHA WOODWARD I Rep #: [id number] : 1935 84 From: Wenceslao Mason MD Attending Dr: Maty Noel MD Status: ADM IN Ordering Dr: Gomez Noel MD Date: 01/03/20 Location: ICU Sex: F C Admitted: 01/03/20 Reason For Study: s/p MO Procedure This was a 2D Doppler, Color Flow transthoracic echocardiogram. The study was technically difficult. Contrast injection was performed. Exam performed portable in ICU/CCU. Left Ventricle Normal LV size. Moderate segmental systolic dysfunction (see wall motion). The estimated ejection fraction is 30 %. Diastolic function is indeterminate. Posterior-Basal: Hypokinetic. Infero-Basal: Akinetic. Basal inferoseptal: Akinetic. Mid-Anterior : Hypokinetic. Mid-Lateral : Hypokinetic. Mid-Posterior: Akinetic. Mid-Inferior: Akinetic. Mid-inferoseptal : Akinetic. Anterior [place] : Hypokinetic. Inferior [place] : Dyskinetic. Lateral [place] : Hypokinetic. Septal [place] : Dyskinetic. Right Ventricle Normal RV size. Normal systolic function. Atria The left atrium is mildly enlarged. Normal right atrium. No doppler evidence for ASD. Mitral Valve There is no mitral annular calcification. Normal mitral valve. Moderate (2+) mitral valve insufficiency. Tricuspid Valve Normal tricuspid valve. Trivial tricuspid valve insufficiency. Unable to estimate RV systolic pressure/pulmonary artery pressure due to technically difficult study. Aortic Valve Trisinus/trileaflet aortic valve. Mild focal aortic valve calcification. Pulmonic Valve The pulmonic valve is not well visualized. Great Vessels Normal sized aortic root. Pericardium/Pleural No pericardial effusion. Medication Diluted definity 6ml given slow IV push to enhance endocardial definition. MMode/2D Measurements AND Calculations LVIDd: 4.4 cm IVSd: 1.0 cm Ao root diam: 2.6 cm LVIDs: 3.3 cm LVPWd: 0.85 cm RVDd: 2.1 cm FS: 25.7 % _ LAV(MOD-bp): 34.3 ml LVAd ap4: 24.7 cm2 SV(MOD-sp4): 25.3 ml LAV(MOD-bp) Indexed: 19.4 ml/m2 EDV(MOD-sp4): 73.3 ml LAV(MOD-sp2): 36.0 ml EDV(sp4-el): 74.6 ml LAV(MOD-sp4): 32.0 ml LVAs ap4: 18.2 cm2 ESV(MOD-sp4): 48.1 ml ESV(sp4-el): 50.1 ml EF(MOD-sp4): 34.5 % EF(sp4-el): 32.8 % _ SV(sp4-el): 24.4 ml LA A4 area: 13.6 cm2 LA dimension(2D): 3.7 cm _ RA A4 area: 9.5 cm2 Doppler Measurements AND Calculations MV E max sidra: 81.5 cm/sec Lat Peak E' Sidra: 5.8 cm/sec Med Peak E' Sidra: 4.1 cm/sec MV A max sidra: 107.7 cm/sec E/E' lat: 14.0 E/E' med: 19.7 MV E/A: 0.76 _ Ao V2 max: 130.6 cm/sec LV V1 max: 94.1 cm/sec PA V2 max: 69.6 cm/sec Ao max P.8 mmHg LV V1 max P.5 mmHg Ao V2 mean: 84.5 cm/sec Ao mean P.2 mmHg Ao V2 VTI: 26.4 cm Interpretation Summary The study was technically difficult. Contrast injection was performed. Moderate segmental systolic dysfunction (see wall motion). The estimated ejection fraction is 30 %. The left atrium is mildly enlarged. Moderate (2+) mitral valve insufficiency. Trivial tricuspid valve insufficiency. Mild focal aortic valve calcification. Unable to estimate RV systolic pressure/pulmonary artery pressure due to technically difficult study. Diastolic function is indeterminate. Ordering Physician: Gomez Noel Referring Physician: Anju Pearce Performed By: Myriam Horton, RDSATINDER, RVT 01/03/20 1452 Date Wenceslao Mason MD CC: Anju Pearce MD; Maty Noel MD Date Dictated: 01/03/20 1330 Date Transcribed: 01/03/20 1452 Cr 1.52 Hemoglobin 12.8 Troponin 4.62 Assessment/Plan IMPRESSION: ACS presenting as STEMI with multivessel disease awaiting coronary artery bypass graft eval Coronary artery disease with remote PCI Type 2 Diabetes Mellitus on insulin History basal ganglia infarct Vertigo Hypertension Dyslipidemia History meningioma PLAN: Neurologic Monitor Pulmonary Albuterol as needed Cardiovascular Trend troponins Consult Cardiothoracic Surgery Got ticagrelor 2/29, await washout Start aspirin Would like to trial water soluble statin but we do not have any on formulary. Will start atorvastatin at 10 mg given patient reported myopathy on many trials of statins in the past May be a candidate for PCSK-9 inhibitors Will attempt to have images from catheterization and echocardiogram placed in our system - asked RN to request disc from [place] Continue with amlodipine Continue with lisinopril Start iv furosemide 20 mg daily Check NT BNP Renal/Fluids/Electrolyt es Hold fluids Noted Nephrology consult requested by Cardiothoracic Surgery, will place GI/Metabolic/Nutrition Heart healthy diet Hematologic/Infectious Disease Continue with heparin drip Endocrinology Check a1c Check lipid panel Resume insulin glargine at 9 units Noted aspart with meals on home dosing, will go with 6 units of lispro with meals Add sliding scale Insulin Musculoskeletal Continue with allopurinol SIGNATURE: Colleen Rashid MD PATIENT NAME: Concha Woodward DATE: January 03, 2020 TIME: 5:08 PM PAGER: [phone] This patient was seen in conjunction with the resident staff, Nursing staff and Clinical Pharmacy. I have personally seen and examined the patient. I have reviewed labs, clinical data and pertinent images. I have discussed the case with the care team. I agree with the documentation, excepts as annotated. Patient who presented to [facility] with acute coronary syndrome within the past 48 hours. Underwent cardiac catheterization which revealed multivessel disease. She was transferred for further care at [facility]. Coronary artery bypass is being contemplated. The patient received the [place] yesterday aspirin for acute management. We will have to allow for antiplatelet washout prior to committing the patient to surgery. She remains clinically stable at present time. We will transfer to the floor for further care. Also reported history of EF 30%. No evidence of clinical decompensation. Clinical issues addressed on this visit: 1. ACS (acute coronary syndrome) (HCC) - ICD9: 411.1, ICD10: I24.9 2. Chronic systolic LV heart failure. Darryn Phillips MD, [facility] Pager # [phone] Previous Version Westley Rosenberg MD 01/03/2020 6:29 PM Signed CARDIOTHORACIC SURGERY CONSULT / HANDP SERVICE DATE: 01/03/2020 SERVICE TIME: 6:20 PM Subjective PRIMARY SERVICE: Cardiothoracic Surgery CHIEF COMPLAINT: NSTEMI, MV CAD HPI: This is a 84 year old woman transferred from [facility] after she presented today with NSTEMI and was found to have severe MV CAD with EF 30%. She had an MO 30 years ago treated with angioplasty. She is now experiencing chest burning while trying to sleep. She denies dyspnea or orthopnea or edema. No MO or CHF in the intervening years. Risk factors include DM, HTN, hyperlipidemia. She states that she is had some upper respiratory illness for the past week. She was started on amoxicillin on Sunday. She states that she still had cough and some mild shortness of breath. She has had remote stroke with left sided weakness, resolved, cause not known. She has CKD with Cr about 1.4-1.5. She did receive ticagrelor today, . Unable to see catheterization report. Transthoracic echocardiogram done at [place] showed left ventricular ejection fraction of 30%, DWMA, no valvular disease. 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 - Diverticulosis of colon (without mention of hemorrhage) - Female stress incontinence 2009 Stress incontinence Very mild - Gout - Internal hemorrhoids without mention of complication - Labyrinthine dysfunction, unspecified 12/26/200810/13 -Seeing ENT, Vestibular Retraining via PT - Other and unspecified hyperlipidemia - Other specified cardiac dysrhythmias(427.89) TACHYCARDIA (SEE ALSO ARRHYTHMIA) SINUS - Pure hypercholesterolemia - Stroke (cerebrum) (HCC) 2013 - Type II or unspecified type diabetes mellitus without mention of complication, uncontrolled (HCC) - Unspecified cardiovascular disease - Unspecified essential hypertension - Urgency of urination 2008 PAST SURGICAL HISTORY Procedure Laterality Date - ANGIOPLASTY 1988 - COLONOSCOP W/ OR W/O [facility] SPEC 08/29/07 - LAPAROSCOPIC CHOLEYCYSTECTOMY Cholecystectomy, lap - LEFT HEART CATH,CUTDOWN 1991 - PAST SURGICAL HISTORY OF Tubal FAMILY HISTORY Problem Relation Age of Onset - Heart Mother mi - Heart Father heart disease - Diabetes Maternal Uncle - Cancer Brother Mouth (non smoker) Social History Tobacco Use - Smoking status: Never Smoker - Smokeless tobacco: Never Used Substance Use Topics - Alcohol use: No - Drug use: No cholecalciferol, Vitamin D3, (VITAMIN D3) 1,250 mcg (50,000 unit) cap capsule, Take 1 capsule by mouth two times a week. (ONE CAPSULE) FOR VITAMIN D DEFICIENCY, Disp: 24 capsule, Rfl: 3 albuterol HFA (VENTOLIN HFA) 90 mcg/actuation inhaler, Inhale 2 Puffs as instructed every 4 hours as needed for Wheezing/Shortness of Breath., Disp: 1 Inhaler, Rfl: 0 albuterol HFA (VENTOLIN HFA) 90 mcg/actuation inhaler, Inhale 2 Puffs as instructed every 4 hours as needed for Wheezing/Shortness of Breath., Disp: 1 Inhaler, Rfl: 0 amoxicillin (AMOXIL) 875 mg tablet, Take 1 tablet by mouth twice daily for 10 days., Disp: 20 tablet, Rfl: 0 blood sugar diagnostic (FREESTYLE LITE STRIPS) test strip, TEST BLOOD SUGARS 3 times daily., Disp: 100 Strip, Rfl: 5, Taking insulin glargine (BASAGLAR KWIKPEN U-100 INSULIN) 100 unit/mL (3 mL) inpn, Inject 11 Units subcutaneously every morning., Disp: 5 Pen, Rfl: 5, Taking Insulin [place], Disposable, (BD ULTRA-FINE JOHN PEN NEEDLE) 32 gauge x 5/32 ndle, Use one needle for each dose. 1x/day., Disp: 50 Each, Rfl: 11, Taking amLODIPine (NORVASC) 10 mg tablet, Take 1 tablet by mouth once daily., Disp: 90 tablet, Rfl: 3, Taking lisinopril (ZESTRIL, PRINIVIL) 40 mg tablet, Take 1 tablet by mouth once daily., Disp: 90 tablet, Rfl: 3, Taking carvedilol (COREG) 6.25 mg tablet, Take 1 tablet by mouth twice daily with meals., Disp: 180 tablet, Rfl: 3, Taking allopurinol (ZYLOPRIM) 100 mg tablet, Take 1 tablet by mouth once daily., Disp: 90 tablet, Rfl: 3, Taking clopidogrel (PLAVIX) 75 mg tablet, Take 1 tablet by mouth once daily., Disp: 90 tablet, Rfl: 3, Taking insulin aspart U-100 (NOVOLOG FLEXPEN U-100 INSULIN) 100 unit/mL (3 mL) inpn, Take 8 units breakfast, 6 units lunch, and 8 units dinner, Disp: 15 Pen, Rfl: 3, Taking fluticasone (FLONASE) 50 mcg/actuation nasal spray, Use 2 Sprays in each nostril once daily. Rinse mouth after use. (Patient not taking: Reported on 04/28/2019 ), Disp: 1 Bottle, Rfl: 1, Not Taking loratadine (CLARITIN) 10 mg tablet, Take 1 tablet by mouth once daily as needed., Disp: 30 tablet, Rfl: 1, Taking Blood-Glucose Meter (FREESTYLE LITE METER) monitoring kit, Use to monitor blood sugar, Disp: 1 Each, Rfl: 0, Taking Lancing Device (LANCING DEVICE WITH LANCETS) [facility], Use to check blood sugar three times daily. Dx E11.22, N18.3, Z79.4. Insulin: yes, Disp: 1 Each, Rfl: 5, Taking RESTASIS 0.05 % ophthalmic emulsion, Use 1 Drop in both eyes twice daily., Disp: , Rfl: 3, Taking omega-3 fatty acids 1,000 mg cap, Take 2 capsules by mouth once daily., Disp: , Rfl: 0, Taking calcium carbonate 600 mg-cholecalciferol 400 units (CALCIUM 600 + D) 600 mg(1,500mg) -400 unit tab, Take 1 tablet by mouth once daily., Disp: , Rfl: 0, Taking lancets(MICROLET LANCET), use as directed, Disp: 100, Rfl: 3, Taking cholecalciferol, Vitamin D3, (VITAMIN D3) 1,250 mcg (50,000 unit) cap capsule, Take 1 capsule by mouth two times a week. (ONE CAPSULE) FOR VITAMIN D DEFICIENCY albuterol HFA (VENTOLIN HFA) 90 mcg/actuation inhaler, Inhale 2 Puffs as instructed every 4 hours as needed for Wheezing/Shortness of Breath. albuterol HFA (VENTOLIN HFA) 90 mcg/actuation inhaler, Inhale 2 Puffs as instructed every 4 hours as needed for Wheezing/Shortness of Breath. amoxicillin (AMOXIL) 875 mg tablet, Take 1 tablet by mouth twice daily for 10 days. blood sugar diagnostic (FREESTYLE LITE STRIPS) test strip, TEST BLOOD SUGARS 3 times daily. insulin glargine (BASAGLAR KWIKPEN U-100 INSULIN) 100 unit/mL (3 mL) inpn, Inject 11 Units subcutaneously every morning. Insulin [place], Disposable, (BD ULTRA-FINE JOHN PEN NEEDLE) 32 gauge x ndle, Use one needle for each dose. 1x/day. amLODIPine (NORVASC) 10 mg tablet, Take 1 tablet by mouth once daily. lisinopril (ZESTRIL, PRINIVIL) 40 mg tablet, Take 1 tablet by mouth once daily. carvedilol (COREG) 6.25 mg tablet, Take 1 tablet by mouth twice daily with meals. allopurinol (ZYLOPRIM) 100 mg tablet, Take 1 tablet by mouth once daily. clopidogrel (PLAVIX) 75 mg tablet, Take 1 tablet by mouth once daily. insulin aspart U-100 (NOVOLOG FLEXPEN U-100 INSULIN) 100 unit/mL (3 mL) inpn, Take 8 units breakfast, 6 units lunch, and 8 units dinner fluticasone (FLONASE) 50 mcg/actuation nasal spray, Use 2 Sprays in each nostril once daily. Rinse mouth after use. loratadine (CLARITIN) 10 mg tablet, Take 1 tablet by mouth once daily as needed. Blood-Glucose Meter (FREESTYLE LITE METER) monitoring kit, Use to monitor blood sugar Lancing Device (LANCING DEVICE WITH LANCETS) [facility], Use to check blood sugar three times daily. Dx E11.22, N18.3, Z79.4. Insulin: yes RESTASIS 0.05 % ophthalmic emulsion, Use 1 Drop in both eyes twice daily. omega-3 fatty acids 1,000 mg cap, Take 2 capsules by mouth once daily. calcium carbonate 600 mg-cholecalciferol 400 units (CALCIUM 600 + D) 600 mg(1,500mg) -400 unit tab, Take 1 tablet by mouth once daily. lancets(MICROLET LANCET), use as directed [DISCONTINUED] blood sugar diagnostic(ASCENSIA CONTOUR TEST STRIPS), Test Blood sugar once daily 250.00, non insulin dep ALLERGIES Allergen Reactions - Bactrim [Sulfametho* Vomiting - Codeine Vomiting - Prednisone Vomiting - Statins [Statins-Hm* Intolerance - Ultram [Tramadol Hc* Vomiting REVIEW OF SYSTEMS: above Objective PHYSICAL EXAM: There were no vitals taken for this visit. General: Awake and alert, in no distress, cooperative Neck: Supple without JVD or Lymphadenopathy Cardiac: RRR, S1S2 with no MGR Lungs: Clear to auscultation bilaterally Abdomen: Soft non-tender, non-distended, normal bowel sounds Extremities: No deformities, edema, clubbing or skin discoloration. STS RISK CALCULATOR:NA Lines, Drains, and Airways None DATA: Diagnostic tests reviewed for today's visit: cath and echo imaging pending Assessment/Plan Concha Woodward is a 84 year old woman with a h/o CAD and remote MO now admitted with NSTEMI who is found to have severe MV CAD and ischemic CM with EF 30%, no CHF, in a setting of DM,HTN,HLD, CKD, remote CVA. Cath imaging will be reviewed by Heart Team and further recommendations to follow. If to proceed to CABG, will need: 1 Brilinta washout [address] chest 4 renal consult SIGNATURE: Westley Rosenberg MD PATIENT NAME: Concha Woodward DATE: January 03, 2020 TIME: 6:20 PM PAGER/CONTACT #: [phone] Eileen Jones MD 01/05/2020 12:46 PM Signed [facility] - Consultation PATIENT NAME: CONCHA WOODWARD I CSN: [id number] DATE OF : 1935 SEX/AGE: F/84 PATIENT TYPE: I HOSP [facility] [place]: CARD LOCATION: [id number] DATE OF SERVICE: 01/04/2020 TIME OF SERVICE: 10:13 AM REFERRING PHYSICIAN: ISIDRO WOLF REASON FOR CONSULTATION: Diabetes management. This is Dr. Jones covering for Dr. Echeverria. HISTORY: The patient is an 84-year-old female, who was transferred from [place]. She was admitted there with chest pain and was found to have coronary artery disease. Patient has history of angioplasty 30 years ago. She had cardiac catheterization and was transferred to [facility]. Regarding diabetes, patient has history of type 2 diabetes for about 5 years. She was initially on metformin for about 2 years, which was stopped because of diarrhea. She was started on NovoLog insulin 3 times a day and then Basaglar was added about a year ago. At home, patient takes Basaglar 9 units every morning and she takes NovoLog 8 units for breakfast and dinner and 6 units for lunch. Her A1c was 7.6 on December 25, now her A1c is 8.4. Patient recently had bronchitis for last 1 week and she was on amoxicillin prior to admission. Patient states her weight has been stable. She does not have any numbness or neuropathy. She sees her eye doctor regularly and does not have any retinopathy. Patient has chronic kidney disease and does not see a kidney doctor. She checks her blood sugars only once a day in the morning. They are usually 150s. She does not check in the evening, but the evening blood sugar used to be higher. Patient had a blood sugar of 342 on admission here. Patient did take her 9 units of Basaglar and 8 units of NovoLog at home with breakfast. She did not have any lunch or dinner, but she did have a small snack of yogurt last night. At this time, she does not have any chest pain or shortness of breath. PAST MEDICAL HISTORY: History of type 2 insulin-requiring diabetes, history of hypertension, history of hyperlipidemia, history of MO 30 years ago when patient had angioplasty, history of chronic kidney disease, history of CVA 5 years ago with mild deficit in the left leg, history of benign neoplasm of cerebral meninges, incidental finding, history of diverticulosis. FAMILY HISTORY: Positive for diabetes in 1 uncle. Positive for heart disease in both parents. SOCIAL HISTORY: No history of smoking or alcohol use. REVIEW OF SYSTEMS: As per history of present illness, otherwise negative. PHYSICAL EXAMINATION: GENERAL: The patient is sitting in chair comfortably, no acute distress. VITAL SIGNS: Height 5 feet 3 inches. Her weight is 161 pounds. Afebrile. BP 132/72. SKIN: Warm and dry. Patient has an abrasion over her left elbow. No ulcers or calluses noticed on her feet. EYES: Pupils appear round. NECK: Supple. No goiter palpable on thyroid exam. LUNGS: Clear to auscultation. CVS: Regular rate and rhythm. ABDOMEN: Soft, nontender. EXTREMITIES: Normal range of motion of extremity joints. Muscle strength is grossly normal. Sensations intact. NEUROLOGIC: Patient is alert and oriented x3. LABORATORY DATA: Sodium 134, potassium 4.5, chloride 105, CO2 of 20, BUN 37, creatinine 1.43. Blood sugar 342 last night and 295 this morning. CLINICAL IMPRESSION: 1. Diabetes mellitus type 2, poor control on insulin at home. Her HbA1c is 8.4, and she does have fasting blood sugars of 150s at home even when she is not sick. She is on Basaglar 9 units every morning and NovoLog 8 units for breakfast and dinner and 6 units for lunch at home. 2. Acute coronary syndrome. The patient has severe coronary artery disease with ejection fraction of 30% and she has non-ST elevation myocardial infarction. 3. Chronic kidney disease. Creatinine is stable at 1.43. RECOMMENDATION: 1. Discussed with the patient the goal of glycemic control and the importance of glycemic control since the patient is being prepared for coronary artery bypass graft. 2. I would continue to monitor the blood sugars before meals and bedtime. 3. Continue carb controlled diet. The patient is currently on a heart healthy diet and I will change it to carb-controlled diet. 4. We will increase the Lantus to 12 units every morning and give 3 units extra now. 5. I will increase the Humalog to 8 units 3 times a day with a sliding scale. 6. We will follow the patient with you and Dr. Echeverria. We will start seeing the patient tomorrow. Eileen Jones MD Endocrinology SM:anthony /[id number] Cesar Burorughs MD 01/05/2020 10:31 AM Signed [facility] - Consultation PATIENT NAME: CONCHA WOODWARD I CSN: [id number] DATE OF : 1935 SEX/AGE: F/84 PATIENT TYPE: I HOSP [facility] [place]: CARD LOCATION: [id number] DATE OF SERVICE: 01/04/2020 REFERRING PHYSICIAN: ISIDRO WOLF REASON FOR EVALUATION: Acute kidney injury on top of chronic kidney disease, stage [address] of ST-elevation myocardial infarction. HISTORY OF PRESENT ILLNESS: The patient is an 84-year-old lady, who denies any pre-existing history of kidney disease. Her baseline creatinine appears to be around 1.3 to 1.4. She presented to the hospital in [place], complaining of weakness, tiredness, cough, and shortness of breath. She was having some chest pain prior to presentation also and was radiating into both her arms. She did take her inhaler which actually rather than helping her made her pain worse. Inthe emergency room, she was found to have Q-waves in the 3 and aVF along with ST- segment elevation. She was found to be presenting late with acute ST-elevation myocardial infarction due to ongoing chest pain and she was brought to the cardiac gold leaf laborer. Her coronary angiography revealed multivessel coronary artery disease. She did receive Brilinta also. Her initial echocardiogram revealed ejection fraction of 30%. At this point in time, she is late presentation of ST-elevation myocardial infarction. She is being evaluated for coronary artery bypass grafting. I was asked to assess and evaluate and help with her management because her creatinine is elevated above her baseline and she has to be cleared for cardiac surgery and I was asked to risk stratify her for that. PAST MEDICAL HISTORY: 1. History of meningioma. 2. Diverticulosis of the colon. 3. History of coronary artery disease, status post angioplasty [address] [facility]. 4. History of internal hemorrhoids. 5. History of sinus arrhythmia. 6. Hyperlipidemia. 7. History of a stroke with some residual left-sided weakness. 8. History of hypertension. 9. Diabetes, which is insulin dependent. Does not have any neuropathy or retinopathy to her knowledge. She is unsure about nephropathy. PAST SURGICAL HISTORY: 1. Angioplasty in 1988. 2. Colonoscopy. 3. Laparoscopic cholecystectomy. 4. History of tubal , status post resection. FAMILY HISTORY: No history of end-stage renal disease. SOCIAL HISTORY: She denies any smoking, alcohol, or drug use. MEDICATIONS: Prior to admission are reviewed and included: 1. Vitamin D3. 2. Albuterol. 3. Amoxicillin. 4. Insulin. 5. Amlodipine 10 a day. 6. Lisinopril 40 a day. 7. Coreg 6.25 twice a day. 8. Allopurinol 100 a day. 9. Plavix 75 a day. 10.Claritin 10 mg daily. 11.[place]-3 fatty acids 2 capsules daily. 12.Calcium carbonate daily. ALLERGIES: 1. Bactrim, she gets vomiting. 2. Famotidine, she gets vomiting. 3. Prednisone, she gets vomiting. 4. Statin, she has intolerance. 5. Ultram, she gets vomiting. REVIEW OF SYSTEMS: A full 12-point review of system was done. No more chest pain. Shortness of breath is well controlled. No edema. No issues with urination. No fever. No chills. No cough. No phlegm. No other associated complaints at this point in time. PHYSICAL EXAMINATION: VITAL SIGNS: Blood pressure is 109/61, heart rate 75, respiratory rate 17, 98% on room air. HEAD, EYES, ENT: No pallor. No cyanosis. No icterus. Mucous membranes of mouth were moist. NECK: Otherwise supple. Hard for me to see a jugular vein distention elevation. LUNGS: Clear to auscultation. No rales. CARDIOVASCULAR: S1, S2. No rubs or gallops. ABDOMEN: Soft, obese, nontender. Bowel sounds are heard. EXTREMITIES: No peripheral edema. SKIN: Otherwise warm and moist. PSYCH: Normal affect. Does not appear to be anxious, depressed, or agitated. LABORATORY DATA: Data is reviewed. White count 11.9, hemoglobin 12.4, platelets 333,000. Sodium 134, potassium 4.5, chloride 105, bicarb 20, BUN 37, creatinine 1.43. Urinalysis is reviewed. Has some proteinuria. Does not seem to have an active sediment. Chest x-ray is reviewed, does not show any overt CHF at this point in time. We have an old ultrasound of the kidney from July 2012, which showed right kidney 11.7, left kidney at 10.2 cm. Noted the echocardiogram. ASSESSMENT: Based on my assessment following is my impression and recommendations. 1. Acute kidney injury on chronic kidney disease stage 3 appears to be secondary to IV contrast, acute congestive heart failure and cardiorenal decompensation along with underlying diabetic nephropathy exacerbating the situation. 2. Chronic kidney disease stage 3 from a combination: a. Age-related decline. b. Diabetes. c. Cardiorenal syndrome. 3. Diabetes [address]-elevation myocardial infarction. 5. Acute systolic congestive heart failure. 6. Hyperlipidemia. 7. Prior history of cerebrovascular accident with left-sided residual deficits. 8. Recent administration of Brilinta. 9. Long-term insulin dependence. RECOMMENDATION: 1. Given the current presentation, especially with ejection fraction of less than 35% and the need for insulin requiring diabetes if she undergoes coronary artery bypass graft, she is anywhere from 5% to 15% risk off acute kidney injury, possibly needing renal replacement therapy at this has been discussed in detail with her. 2. The benefit of the procedure far outweighs the risk at this point of time. 3. I explained to her that the [facility] [place] criteria for risk of acute kidney injury post the coronary artery bypass graft take into account factors going in, but does not take into account any complications that can potentially happen during the procedure. 4. From renal standpoint, she is at moderate to high risk of kidney injury. However, the benefit of the procedure far exceeds the risk at this point of time given her presentation, especially with the reduced ejection fraction. 5. For risk stratification, will do a kidney ultrasound to assess the renal sizes and we will also check urine protein to creatinine ratio. 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 6. Recommend to keep hemoglobin greater than 10 for surgery. 7. Recommend to back off on the lisinopril 20 mg a day. The patient does not have a BMP from today, we will order another one.if worse, will need to dc 8. Avoid any overt hemodynamic shifts. 9. Once the date for surgery is decided, we will recommend to hold the ISABELLA inhibitor at least for 24 hours pre and for 72 hours post or until the time the patient's creatinine post surgery gets stable. 10.Avoid all potential nephrotoxic agents, especially nonsteroidal anti- inflammatory drugs and any further IV contrast administration. 11.We will follow the patient closely in the hospital with you. Please do not hesitate to call if any questions or concerns. I can be reached at with questions, concerns, or issues. For the coronary disease as well as the ST-elevation myocardial infarction, anticoagulation per the Cardiology team and we will defer the hypertension management to the Cardiovascular Intensive Care Unit team also. Thank you again for this consultation. Case is discussed in detail with the patient's family, that is daughter and son, as well as the patient herself. She is agreeable to proceed with the surgery with the current risk at this point of time. Cesar Burroughs MD DD:anthony /[id number] Previous Version Darryn Phillips MD 01/04/2020 1:22 PM Signed [facility] CVICU PROGRESS NOTE Service Date: 01/04/2020 Service Time: 8:30 AM HPI: 84 year old female PMH T2DM, CAD s/p PCI 30 years ago, CVA on Plavix who was admitted for coronary artery bypass graft eval after presenting as a STEMI to [place]. She had been having URI sxs for the last week and was being treated with a 10 day course of amoxicillin. She had associated dry cough and intermittent SOB. Over the last 3 days she's been having bilateral arm pain, that radiated to her chest. She described it as a pressure. She presented to the [place] ED. EKG done in the emergency room revealed Q waves in III and aVF along with ST elevation. It was felt that patient was presenting late with acute ST elevation MO but due to ongoing chest pain that was about 2/10 in intensity she was evaluated and brought emergently to the cardiac Grooving Machine Operator for coronary angiography. Coronary angiography revealed multivessel coronary artery disease with MARTIN-3 flow in all the vessels and she was transferred to [facility] for CABG evaluation. Of note, she takes Plavix at home for her hx CVA and did receive Brilinta in the ED . Transthoracic echocardiogram done at [place] showed left ventricular ejection fraction of 30%, DWMA, no valvular disease. ? Interval History: No overnight events. Patient feels well and denies CP since leaving the ED. She denies n/v, abd pain, dysuria, bleeding issues. She is sitting up in chair eating and drinking. She had two episodes of diarrhea this AM and states it looked dark, she has also had nasal congestion and when she blows her nose it is blood streaked. Otherwise she feels well. Telemetry: NSR Inpatient Medications: Current Facility-Administered Medications Medication Dose Route Frequency - carvedilol 6.25 mg tab(s) (COREG) 6.25 mg ORAL BID w MEALS - lisinopril 40 mg tab(s) (ZESTRIL, PRINIVIL) 40 mg ORAL DAILY - albuterol 2.5 mg /3 mL (0.083 %) 2.5 mg (PROVENTIL) 2.5 mg INHALATION q 4 H PRN - furosemide 20 mg injection (LASIX) 20 mg INTRAVENOUS DAILY - amLODIPine 10 mg tab(s) (NORVASC) 10 mg ORAL DAILY - allopurinol 100 mg tab(s) (ZYLOPRIM) 100 mg ORAL DAILY - insulin glargine 9 Units pen (long acting) (LANTUS SOLOSTAR, BASAGLAR KWIKPEN) 9 Units SUBCUTANEOUS DAILY (8 AM) - insulin lispro 6 Units pen (rapid acting) (HumaLOG KWIKPEN) 6 Units SUBCUTANEOUS w MEALS - aspirin 81 mg chewable tab(s) 81 mg ORAL DAILY - nitroglycerin sublingual 0.4 mg tab(s) (NITROQUICK) 0.4 mg SUBLINGUAL PRN - potassium chloride ER 20-40 mEq tab(s) (K-DUR, KLOR-CON) 20-40 mEq ORAL/FEEDING TUBE PRN Or - potassium chloride iv piggyback 20 mEq/100 mL 20 mEq INTRAVENOUS PRN - magnesium sulfate in water 2 g in sterile water 50 ml 2 g INTRAVENOUS PRN - sodium phosphate 45 mmol in NaCl 0.9% 250 mL 45 mmol INTRAVENOUS PRN - calcium gluconate 4 g in NaCl 0.9% 250 mL 4 g INTRAVENOUS PRN - heparin iv infusion (LOW DOSE ACS/NOMOGRAM) 25,000 units in NaCl 0.45% 250 mL PREMIX 0-3,000 Units/hr INTRAVENOUS CONTINUOUS And - heparin RATE CHANGE bolus 1,000-4,000 Units for subtherapeutic aptt results 1,000-4,000 Units INTRAVENOUS PRN - dextrose 40 % 15 g 15 g ORAL PRN Or - glucagon 1 mg injection (GLUCAGEN) 1 mg INTRAMUSCULAR PRN Or - dextrose 50% in water 25 mL syringe 12.5 g INTRAVENOUS PRN - NaCl 0.9% 3-5 mL 3-5 mL INTRAVENOUS q 12 H - insulin lispro pen (rapid acting) (HumaLOG KWIKPEN) SUBCUTANEOUS w MEALS - atorvastatin 10 mg tab(s) (LIPITOR) 10 mg ORAL AT BEDTIME - ezetimibe 10 mg tab(s) (ZETIA) 10 mg ORAL DAILY Home Medications: cholecalciferol, Vitamin D3, (VITAMIN D3) 1,250 mcg (50,000 unit) cap capsule, Take 1 capsule by mouth two times a week. (ONE CAPSULE) FOR VITAMIN D DEFICIENCY albuterol HFA (VENTOLIN HFA) 90 mcg/actuation inhaler, Inhale 2 Puffs as instructed every 4 hours as needed for Wheezing/Shortness of Breath. albuterol HFA (VENTOLIN HFA) 90 mcg/actuation inhaler, Inhale 2 Puffs as instructed every 4 hours as needed for Wheezing/Shortness of Breath. amoxicillin (AMOXIL) 875 mg tablet, Take 1 tablet by mouth twice daily for 10 days. blood sugar diagnostic (FREESTYLE LITE STRIPS) test strip, TEST BLOOD SUGARS 3 times daily. insulin glargine (BASAGLAR KWIKPEN U-100 INSULIN) 100 unit/mL (3 mL) inpn, Inject 11 Units subcutaneously every morning. Insulin [place], Disposable, (BD ULTRA-FINE JOHN PEN NEEDLE) 32 gauge x 5/32 ndle, Use one needle for each dose. 1x/day. amLODIPine (NORVASC) 10 mg tablet, Take 1 tablet by mouth once daily. lisinopril (ZESTRIL, PRINIVIL) 40 mg tablet, Take 1 tablet by mouth once daily. carvedilol (COREG) 6.25 mg tablet, Take 1 tablet by mouth twice daily with meals. allopurinol (ZYLOPRIM) 100 mg tablet, Take 1 tablet by mouth once daily. clopidogrel (PLAVIX) 75 mg tablet, Take 1 tablet by mouth once daily. insulin aspart U-100 (NOVOLOG FLEXPEN U-100 INSULIN) 100 unit/mL (3 mL) inpn, Take 8 units breakfast, 6 units lunch, and 8 units dinner fluticasone (FLONASE) 50 mcg/actuation nasal spray, Use 2 Sprays in each nostril once daily. Rinse mouth after use. loratadine (CLARITIN) 10 mg tablet, Take 1 tablet by mouth once daily as needed. Blood-Glucose Meter (FREESTYLE LITE METER) monitoring kit, Use to monitor blood sugar Lancing Device (LANCING DEVICE WITH LANCETS) [facility], Use to check blood sugar three times daily. Dx E11.22, N18.3, Z79.4. Insulin: yes RESTASIS 0.05 % ophthalmic emulsion, Use 1 Drop in both eyes twice daily. omega-3 fatty acids 1,000 mg cap, Take 2 capsules by mouth once daily. calcium carbonate 600 mg-cholecalciferol 400 units (CALCIUM 600 + D) 600 mg(1,500mg) -400 unit tab, Take 1 tablet by mouth once daily. lancets(MICROLET LANCET), use as directed [DISCONTINUED] blood sugar diagnostic(ASCENSIA CONTOUR TEST STRIPS), Test Blood sugar once daily 250.00, non insulin dep Physical Exam: 01/04/20 0400 01/04/20 0500 01/04/20 0600 01/04/20 0700 BP: 101/56 138/66 116/71 Pulse: 64 69 65 87 Resp: 22 19 18 16 Temp: TempSrc: SpO2: 98% 95% Weight: Intake/Output: Intake/Output Summary (Last 24 hours) at 01/04/2020 0830 Last data filed at 01/04/2020 0700 Gross per 24 hour Intake 341 ml Output 1150 ml Net -809 ml General: Awake and alert, in no distress, cooperative Neck: Supple without JVD or Lymphadenopathy. No carotid bruits Cardiac: RRR, S1S2 with no MGR Lungs: Clear to auscultation bilaterally Abdomen: Soft non-tender, non-distended, normal bowel sounds Extremities: right forearm bandaged from catheterization site. No deformities, edema, clubbing. Lab Data and Diagnostic Imaging: Recent Labs 01/04/20 0045 01/03/20 2355 01/03/20 1835 TROPI -- 33.900* < > -- WBC -- 11.96* -- 10.82* RBC -- 4.03 -- 4.31 HB -- 12.4 -- 13.0 HCT -- 36.0 -- 38.4 MCV -- 89.3 -- 89.1 MCH -- 30.8 -- 30.2 MCHC -- 34.4 -- 33.9 PLT -- 333 -- 315 MPV -- 11.6 -- 11.2 GLUC -- 202* -- -- BUN -- 37* -- -- CREAT -- 1.43* -- -- NA -- 134* -- -- K -- 4.5 -- -- CHLOR -- 105 -- -- CO2 -- 20* -- -- CA -- 8.8 -- -- PTSEC -- -- -- 10.2 APTT 38.5* -- -- 22.3* INR -- -- -- 0.94 < > = values in this interval not displayed. TSH 3.590 08/29/2019 Triglyceride 334 01/03/2020 HDL Cholesterol 42 01/03/2020 LDL Chol, Ben 99 01/03/2020 Cholesterol, Total 208 01/03/2020 Last 12 Encounter Wt Readings: Date: Wt: 01/03/2020 73.3 kg (161 lb 9.6 oz) 12/30/2019 74.4 kg (164 lb) 11/03/2019 76.7 kg (169 lb) 09/02/2019 75.3 kg (166 lb) 04/28/2019 76.7 kg (169 lb) 04/11/2019 76.7 kg (169 lb) 12/23/2018 76.7 kg (169 lb) 11/11/2018 75.3 kg (166 lb) 11/03/2018 75.3 kg (166 lb) 10/04/2018 75.2 kg (165 lb 12.8 oz) 08/21/2018 77.1 kg (170 lb) 04/22/2018 75.3 kg (166 lb) Echo Complete W/ Contrast 01/03/20 1330 Left Ventricle Normal LV size. Moderate segmental systolic dysfunction (see wall motion). The estimated ejection fraction is 30 %. Diastolic function is indeterminate. Posterior-Basal: Hypokinetic. Infero-Basal: Akinetic. Basal inferoseptal: Akinetic. Mid-Anterior : Hypokinetic. Mid-Lateral : Hypokinetic. Mid-Posterior: Akinetic. Mid-Inferior: Akinetic. Mid-inferoseptal : Akinetic. Anterior [place] : Hypokinetic. Inferior [place] : Dyskinetic. Lateral [place] : Hypokinetic. Septal [place] : Dyskinetic. Right Ventricle Normal RV size. Normal systolic function. Atria The left atrium is mildly enlarged. Normal right atrium. No doppler evidence for ASD. ? Mitral Valve There is no mitral annular calcification. Normal mitral valve. Moderate (2+) mitral valve insufficiency. Tricuspid Valve Normal tricuspid valve. Trivial tricuspid valve insufficiency. Unable to estimate RV systolic pressure/pulmonary artery pressure due to technically difficult study. Aortic Valve Trisinus/trileaflet aortic valve. Mild focal aortic valve calcification. Pulmonic Valve The pulmonic valve is not well visualized. Great Vessels Normal sized aortic root. Pericardium/Pleural No pericardial effusion. ?Interpretation Summary Moderate segmental systolic dysfunction (see wall motion). The estimated ejection fraction is 30 %. The left atrium is mildly enlarged. Moderate (2+) mitral valve insufficiency. Trivial tricuspid valve insufficiency. Mild focal aortic valve calcification. Unable to estimate RV systolic pressure/pulmonary artery pressure due to technically difficult study. Assessment and Plan: Active Hospital Problems Diagnosis - ACS (acute coronary syndrome) (HCC) IMPRESSION: ACS presenting as STEMI with multivessel disease awaiting coronary artery bypass graft eval Coronary artery disease with remote PCI HFrEF Type 2 Diabetes Mellitus on insulin History basal ganglia infarct on Plavix Vertigo Hypertension Dyslipidemia CKD History meningioma ? PLAN: Sofy trended down CTS evaluating for CABG Got ticagrelor , await washout C/w aspirin, low dose statin given hx of significant myopathy in past May be a candidate for PCSK-9 inhibitors Will attempt to have images from catheterization and echocardiogram placed in our system - asked RN to request disc from [place] Continue with amlodipine Continue with lisinopril C/w IV furosemide 20 mg daily, patient having adequate diuresis Nephrology consult requested by Cardiothoracic Surgery for CKD Heart healthy diet Continue with heparin drip C/w insulin glargine at 9 units and 6 units of lispro with meals with SSI scale 2 Continue with allopurinol SIGNATURE: Patience Adler DO PATIENT NAME: Concha Woodward DATE: January 04, 2020 TIME: 8:30 AM Pager: [phone] This patient was seen in conjunction with the resident staff, Nursing staff and Clinical Pharmacy. I have personally seen and examined the patient. I have reviewed labs, clinical data and pertinent images. I have discussed the case with the care team. I agree with the documentation, excepts as annotated. Clinical issues addressed on this visit: 1. ACS (acute coronary syndrome) (HCC) - ICD9: 411.1, ICD10: I24.9 Darrny Phillips MD, FACC. Pager # [phone] Previous Version Cesar Burroughs MD 01/04/2020 3:02 PM Addendum Chart reviwed Thanks full consult to follow [id number] SHA ON CKD 3 Trend the cr post the IV Contrast Follow the renal function Decrease ISABELLA-I and hold If cr > 30 % increase over baseline Avoid overt BP shifts At this time Risk of SHA needing SCREEN PRINTING SUPERVISOR post the CABG is about 9 % ( +/- 5 ) She is aware Benefit > risk Needs a renal USG to see if has renal asymmetry or smaller kidneys and to see if has proteinuric renal dz That also elevates the Chances of worse SHA post the CABG Follow the lytes Urine P/C Check Agree with CVICU rx for the acute CHF More reccomendations as more data is available We will follow closely- Previous Version Eileen Jones MD 01/04/2020 10:11 AM Signed I have reviewed the patient's medical record in detail. Consult note dictated. See new insulin orders. MD Patience Olvera DO 01/04/2020 12:58 PM Signed CVICU Transfer Note 84 year old female PMH T2DM, CAD s/p PCI 30 years ago, CVA on Plavix who was admitted for coronary artery bypass graft eval after presenting as a STEMI to [place]. Over the last 3 days she's been having bilateral arm pain, that radiated to her chest. She presented to the [place] ED. EKG done in the emergency room revealed Q waves in III and aVF along with ST elevation. It was felt that patient was presenting late with acute ST elevation MO but due to ongoing chest pain that was about 2/10 in intensity she was evaluated and brought emergently to the cardiac Grooving Machine Operator for coronary angiography. Coronary angiography revealed multivessel coronary artery disease with MARTIN-3 flow in all the vessels and she was transferred to [facility] for CABG evaluation. Of note, she takes Plavix at home for her hx CVA and did receive Brilinta in the ED . Transthoracic echocardiogram done at [place] showed left ventricular ejection fraction of 30%, DWMA, no valvular disease. A/P: ACS presenting as STEMI with multivessel disease?awaiting coronary artery bypass graft eval Coronary artery disease with remote PCI HFrEF, appears euvolemic today Type 2 Diabetes Mellitus?on insulin? History basal ganglia infarct on Plavix Hypertension Dyslipidemia CKD History meningioma ? 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 Transferred to medical floor-SOUND accepted Patience Adler CVICU Resident Pager #[phone] Caio Simms, RN, RN 01/04/2020 9:25 PM Signed Pt transported via wheelchair to [facility] in stable condition. Nurse notified that pt was in room, pt connected to telemetry monitoring device prior to this RN's departure. Ann Echeverria MD 01/05/2020 8:29 PM Signed ENDOCRINOLOGY CONSULT PROGRESS NOTE SERVICE DATE: 01/05/2020 SERVICE TIME: 8:40 AM Subjective INTERVAL HPI: followed for DM type 2 on insulin MDI; can not tolerate metformin due to diarrhea; has CAD She was admitted there with chest pain and was found to have coronary artery disease. Patient has history of angioplasty 30 years ago. ?H/o CAD and remote MO now admitted with NSTEMI who is found to have severe MV CAD and ischemic CM with EF 30%, no CHF, in a setting of DM,HTN,HLD, CKD, remote CVA. Regarding diabetes, patient has history of type 2 diabetes for about 5 years. She was initially on metformin for about 2 years, which was stopped because of diarrhea. She was started on NovoLog insulin 3 times a day and then Basaglar was added about a year ago. At home, patient takes Basaglar 9 units every morning and she takes NovoLog 8 units for breakfast and dinner and 6 units for lunch. Her A1c was 7.6 on December 25, now her A1c is 8.4. Patient recently had bronchitis for last 1 week and she was on amoxicillin prior to admission. Patient states her weight has been stable. DIET HEART HEALTHY Recent Labs 01/05/20 0741 01/05/20 0354 01/04/20 2035 01/04/20 1652 01/04/20 0915 01/03/20 2355 GLUC -- 145* -- -- -- 284* -- 202* GLUCOSEMETER 178* -- 151* 168* < > -- < > -- < > = values in this interval not displayed. Current Facility-Administered Medications Medication Dose Route Frequency - carvedilol 6.25 mg tab(s) (COREG) 6.25 mg ORAL BID w MEALS - albuterol 2.5 mg /3 mL (0.083 %) 2.5 mg (PROVENTIL) 2.5 mg INHALATION q 4 H PRN - amLODIPine 10 mg tab(s) (NORVASC) 10 mg ORAL DAILY - allopurinol 100 mg tab(s) (ZYLOPRIM) 100 mg ORAL DAILY - aspirin 81 mg chewable tab(s) 81 mg ORAL DAILY - nitroglycerin sublingual 0.4 mg tab(s) (NITROQUICK) 0.4 mg SUBLINGUAL PRN - potassium chloride ER 20-40 mEq tab(s) (K-DUR, KLOR-CON) 20-40 mEq ORAL/FEEDING TUBE PRN Or - potassium chloride iv piggyback 20 mEq/100 mL 20 mEq INTRAVENOUS PRN - magnesium sulfate in water 2 g in sterile water 50 ml 2 g INTRAVENOUS PRN - sodium phosphate 45 mmol in NaCl 0.9% 250 mL 45 mmol INTRAVENOUS PRN - calcium gluconate 4 g in NaCl 0.9% 250 mL 4 g INTRAVENOUS PRN - heparin iv infusion (LOW DOSE ACS/NOMOGRAM) 25,000 units in NaCl 0.45% 250 mL PREMIX 0-3,000 Units/hr INTRAVENOUS CONTINUOUS And - heparin RATE CHANGE bolus 1,000-4,000 Units for subtherapeutic aptt results 1,000-4,000 Units INTRAVENOUS PRN - dextrose 40 % 15 g 15 g ORAL PRN Or - glucagon 1 mg injection (GLUCAGEN) 1 mg INTRAMUSCULAR PRN Or - dextrose 50% in water 25 mL syringe 12.5 g INTRAVENOUS PRN - NaCl 0.9% 3-5 mL 3-5 mL INTRAVENOUS q 12 H - atorvastatin 10 mg tab(s) (LIPITOR) 10 mg ORAL AT BEDTIME - ezetimibe 10 mg tab(s) (ZETIA) 10 mg ORAL DAILY - mupirocin 2 % ointment (BACTROBAN) TOPICAL TID - folic acid 1 mg tab(s) 1 mg ORAL DAILY - ferrous sulfate 325 mg tab(s) 325 mg ORAL BID w MEALS - senna-docusate 8.6-50 mg 1 tablet (SENNA-S) 1 tablet ORAL BID - ascorbic acid (vitamin C) 500 mg tab(s) (VITAMIN C) 500 mg ORAL BID - insulin lispro 0-10 Units pen (rapid acting) (HumaLOG KWIKPEN) 0-10 Units SUBCUTANEOUS w MEALS - insulin glargine 12 Units pen (long acting) (LANTUS SOLOSTAR, BASAGLAR KWIKPEN) 12 Units SUBCUTANEOUS DAILY (8 AM) - insulin lispro 8 Units pen (rapid acting) (HumaLOG KWIKPEN) 8 Units SUBCUTANEOUS w MEALS - furosemide 40 mg tab(s) (LASIX) 40 mg ORAL DAILY - [MAR Hold due to Transfer] lisinopril 20 mg tab(s) (ZESTRIL, PRINIVIL) 20 mg ORAL DAILY Objective PHYSICAL EXAM: GENERAL: Alert, no distress, cooperative OROPHARYNX: moist mm NECK: No jugulovenous distention, No carotid bruits, Carotid pulse normal contour, Supple LUNGS: Lungs clear to auscultation, Good diaphragmatic excursion CARDIAC: Normal S1 and S2; no rubs, murmurs, or gallops ABDOMEN: Abdomen soft, non-tender, BS normal, No masses or organomegaly EXTREMITIES: Extremities normal, no deformities, edema, clubbing or skin discoloration. Good capillary refill., No ulcers NEURO: Grossly normal cognition, motor function, and cranial nerves III-XII BP 106/59 Pulse 69 Temp (Src) 97.9 (Oral) Resp 18 Wt 161 lb 9.6 oz (73.3kg) SpO2 99% O2 Therapy: Room Air DATA: Diagnostic tests reviewed for today's visit: Most recent labs and imaging results. Assessment/Plan Diabetes mellitus type 2; HbA1c 8.4; on lantus 12 units daily and humalog 8 units qac tid plus correction SHA/CKS stage III; S creat 2.1 (baseline 1.3) ACS (acute coronary syndrome) (HCC) POA: Yes Assessment AND Plan: EF 30%; awaiting decision for CABG SIGNATURE: Ann Echeverria MD PATIENT NAME: Concha Woodward DATE: January 05, 2020 TIME: 8:40 AM PAGER: [phone] Nettie Cheng, CIVIL CAD TECH.EVENTS ASSISTANT, EVENTS ASSISTANT 01/05/2020 12:24 PM Signed CARDIOLOGY CONSULT PROGRESS NOTE CARDIOLOGY ATTENDING: Dr. Phillips INTERVAL HISTORY: History of present illness copied and updated 84 year old female PMH T2DM, CAD s/p PCI 30 years ago, CVA on Plavix who was admitted for coronary artery bypass graft eval after presenting as a STEMI to [place]. ? She had been having URI sxs for the last week and was being treated with a 10 day course of amoxicillin. She had associated dry cough and intermittent SOB. Over the last 3 days she's been having bilateral arm pain, that radiated to her chest. She described it as a pressure. She presented to the [place] ED. EKG done in the emergency room revealed Q waves in III and aVF along with ST elevation. It was felt that patient was presenting late with acute ST elevation MO but due to ongoing chest pain that was about 2/10 in intensity she was evaluated and brought emergently to the cardiac Grooving Machine Operator for coronary angiography. Coronary angiography revealed multivessel coronary artery disease with MARTIN-3 flow in all the vessels and she was transferred to [facility] for CABG evaluation. Of note, she takes Plavix at home for her hx CVA and did receive Brilinta in the ED . Transthoracic echocardiogram done at [place] showed left ventricular ejection fraction of 30%, DWMA, no valvular disease. She was transferred to telemetry floor on 01/04/2020, hernias thoracic surgery on consult PERTINENT ROS: Patient denies chest pain, shortness of breath, edema, dizziness or near-syncope MEDICATIONS: Current Facility-Administered Medications Medication Dose Route Frequency - carvedilol 6.25 mg tab(s) (COREG) 6.25 mg ORAL BID w MEALS - albuterol 2.5 mg /3 mL (0.083 %) 2.5 mg (PROVENTIL) 2.5 mg INHALATION q 4 H PRN - amLODIPine 10 mg tab(s) (NORVASC) 10 mg ORAL DAILY - allopurinol 100 mg tab(s) (ZYLOPRIM) 100 mg ORAL DAILY - aspirin 81 mg chewable tab(s) 81 mg ORAL DAILY - nitroglycerin sublingual 0.4 mg tab(s) (NITROQUICK) 0.4 mg SUBLINGUAL PRN - potassium chloride ER 20-40 mEq tab(s) (K-DUR, KLOR-CON) 20-40 mEq ORAL/FEEDING TUBE PRN Or - potassium chloride iv piggyback 20 mEq/100 mL 20 mEq INTRAVENOUS PRN - magnesium sulfate in water 2 g in sterile water 50 ml 2 g INTRAVENOUS PRN - sodium phosphate 45 mmol in NaCl 0.9% 250 mL 45 mmol INTRAVENOUS PRN - calcium gluconate 4 g in NaCl 0.9% 250 mL 4 g INTRAVENOUS PRN - heparin iv infusion (LOW DOSE ACS/NOMOGRAM) 25,000 units in NaCl 0.45% 250 mL PREMIX 0-3,000 Units/hr INTRAVENOUS CONTINUOUS And - heparin RATE CHANGE bolus 1,000-4,000 Units for subtherapeutic aptt results 1,000-4,000 Units INTRAVENOUS PRN - dextrose 40 % 15 g 15 g ORAL PRN Or - glucagon 1 mg injection (GLUCAGEN) 1 mg INTRAMUSCULAR PRN Or - dextrose 50% in water 25 mL syringe 12.5 g INTRAVENOUS PRN - NaCl 0.9% 3-5 mL 3-5 mL INTRAVENOUS q 12 H - atorvastatin 10 mg tab(s) (LIPITOR) 10 mg ORAL AT BEDTIME - ezetimibe 10 mg tab(s) (ZETIA) 10 mg ORAL DAILY - mupirocin 2 % ointment (BACTROBAN) TOPICAL TID - folic acid 1 mg tab(s) 1 mg ORAL DAILY - ferrous sulfate 325 mg tab(s) 325 mg ORAL BID w MEALS - senna-docusate 8.6-50 mg 1 tablet (SENNA-S) 1 tablet ORAL BID - ascorbic acid (vitamin C) 500 mg tab(s) (VITAMIN C) 500 mg ORAL BID - insulin lispro 0-10 Units pen (rapid acting) (HumaLOG KWIKPEN) 0-10 Units SUBCUTANEOUS w MEALS - insulin glargine 12 Units pen (long acting) (LANTUS SOLOSTAR, BASAGLAR KWIKPEN) 12 Units SUBCUTANEOUS DAILY (8 AM) - insulin lispro 8 Units pen (rapid acting) (HumaLOG KWIKPEN) 8 Units SUBCUTANEOUS w MEALS - furosemide 40 mg tab(s) (LASIX) 40 mg ORAL DAILY - [MAR Hold due to Transfer] lisinopril 20 mg tab(s) (ZESTRIL, PRINIVIL) 20 mg ORAL DAILY PHYSICAL EXAM: Vital Signs 01/05/20 0037 01/05/20 0345 01/05/20 0600 01/05/20 0805 BP: 133/84 135/70 106/59 Pulse: 74 80 69 Resp: 18 16 18 Temp: 36.6 ?C (97.9 ?F) 36.3 ?C (97.3 ?F) 36.6 ?C (97.9 ?F) TempSrc: Oral Oral Oral SpO2: 99% 100% 99% Weight: 73.3 kg (161 lb 9.6 oz) Temp (24hrs), Av.5 ?C (97.7 ?F), Min:36.3 ?C (97.3 ?F), Max:36.8 ?C (98.2 ?F) Intake/Output: No intake or output data in the 24 hours ending 01/05/20 1113 Oxygen therapy: Room air Gen: AANDO x 3 no acute distress Neck: No JVD Cardiac: Regular rate and rhythm Resp: Clear and equal bilateral Abd: Obese Soft, non-tender. Bowel sounds normal. Ext: no edema, moves all extremities with no apparent weakness Tele: Not on telemetry Labs: No results found for this basename: CK:3,MB:3,MBP:3,CKMBP:3 ,TROPT:3 Recent Labs 01/05/20 0354 01/04/20 1615 01/04/20 0915 01/03/20 2355 01/03/20 1835 WBC 11.82* -- -- -- 11.96* 10.82* HB 12.0 -- -- -- 12.4 13.0 HCT 35.9 -- -- -- 36.0 38.4 PLT 335 -- -- -- 333 315 INR -- -- -- -- -- 0.94 APTT 60.8* 53.3* 53.2* < > -- 22.3* < > = values in this interval not displayed. Recent Labs 01/05/2035301/04/2091401/03/20 2355 NA 137 134* 134* K 3.2* 4.2 4.5 CHLOR 106 103 105 CO2 23 21 20* BUN 46* 38* 37* CREAT 2.16* 1.51* 1.43* GLUC 145* 284* 202* Cholesterol, Total 208 01/03/2020 HDL Cholesterol 42 01/03/2020 LDL Chol, [place] 99 01/03/2020 ASSESSMENT AND PLAN: 1. Acute coronary syndrome Multivessel disease awaiting coronary artery bypass graft surgery evaluation, patient received Brilinta therapy on 01/03/2020, had been on Plavix prior for history of CVA. 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 Continue amlodipine, continue beta shravan Cardiothoracic surgery on consult 2 history CVA 3. Hypertension: Stable on current treatment no change 4. Diabetes: By inpatient medical team, endocrinology on consult A1c 8.4 5. Hyperlipidemia Started on low-dose dose statin therapy, or myalgias the past 6. Systolic heart failure: Patient euvolemic, asymptomatic Continue beta shravan, Isabella on hold secondary to SHA Would like to resume at the guidance of nephrology, even after CABG. Planning: General cardiology will continue to follow, awaiting CABG surgical date, due to Brilinta . SIGNATURE:Nettie Cheng APRN.EVENTS ASSISTANT PAGER: DATE / TIME of SERVICE: January 05, 2020 11:13 AM This note is not final until Authenticated by responsible provider. Chandan Tavarez MD 01/05/2020 12:52 PM Signed DEPARTMENT OF HOSPITAL MEDICINE PROGRESS NOTE SERVICE DATE: 01/05/2020 SERVICE TIME: 12:44 PM Hospital Medicine/Primary Attending: Chandan Tavarez MD NIGHT AND WEEKEND COVERAGE: From 7am - 7pm, please call [phone] After 7pm, please call cross cover pager #[phone] Subjective INTERVAL HPI: Reports that she is doing well. No fever or chills. No chest pain. MEDICATIONS: Reviewed Objective PHYSICAL EXAM: BP 106/59 Pulse 69 Temp (Src) 97.9 (Oral) Resp 18 Wt 161 lb 9.6 oz (73.3kg) SpO2 99% O2 Therapy: Room Air Physical Exam Performed GENERAL: Alert, no distress, cooperative SKIN: Skin color, texture, turgor normal. No rashes or lesions. HEAD/SINUSES: No significant findings EYES: PERRLA, EOMI EARS: External ears normal, canals clear NOSE: Nares normal. Septum midline. OROPHARYNX: Lips, mucosa, and tongue normal. Teeth and gums normal. Oropharynx normal. NECK: No jugulovenous distention, No carotid bruits, Carotid pulse normal contour, Supple LUNGS: Lungs clear to auscultation, Good diaphragmatic excursion CARDIAC: Normal S1 and S2; no rubs, murmurs, or gallops ABDOMEN: Abdomen soft, non-tender, BS normal, No masses or organomegaly EXTREMITIES: Extremities normal, no deformities, edema, clubbing or skin discoloration. Good capillary refill., No ulcers NEURO: Grossly intact PULSES: 2+ radial, 2+ carotid Lines, Drains, and Airways Line Peripheral 01/03/20 1849 Admission to Hospital Short Left Forearm 20 Gauge 1 day Peripheral 01/04/20 1618 Short Right Antecubital 20 Gauge less than 1 day DATA: Diagnostic tests reviewed for today's visit: Assessment/Plan 1. ACS (acute coronary syndrome): Noted to have Multi vessel disease. Awaiting cardiothoracic evaluation for possible surgery 2. Hypertension Essential: On home medication Well controlled 3. Hyperlipidemia: on statin 4. DM type 2: Fair control Continue lantus and sliding scale Hx of CHF. Not in exacerbation. Medication and Non-Pharmacologic VTE Prophylaxis/Anticoagula nts Anticoagulant AND Antiplatelet Medications (From admission, onward) Start Dose Route Frequency Ordered Stop 01/03/20 1800 aspirin 81 mg chewable tab(s) (Order Panel) 81 mg ORAL DAILY 01/03/20 1759 -- 01/03/20 1800 heparin iv infusion (LOW DOSE ACS/NOMOGRAM) 25,000 units in NaCl 0.45% 250 mL PREMIX (Heparin Infusion + Rate Change Bolus) 0-30 mL/hr 0-3,000 Units/hr INTRAVENOUS CONTINUOUS 01/03/20 1759 -- 01/03/20 1800 vte non-pharmacologic prophylaxis - none indicated ([place]) 01/03/20 1800 vte current anticoag therapy ([place], [place]) 01/03/20 1800 activity - mobilize patient ([place], [place]) VTE Prophylaxis: VTE prophylaxis appropriate Disposition: Home Plan of care discussed with: Patient SIGNATURE: Chandan Tavarez MD PATIENT NAME: Concha Woodward DATE: January 05, 2020 TIME: 12:44 PM PAGER/CONTACT #: [phone] Malinda Zurita RN, RN 01/05/2020 2:47 PM Signed CARDIAC REHAB 5 METER WALK TEST SERVICE DATE: 01/05/2020 SERVICE TIME: 1445 ASSESSMENT: 5 Meter Walk Test 5 Meter Walk Test Completed: Yes Trial 1 # of Seconds: 8.28 Trial 1 Assistive Device: IV Pole Trial 2 # of Seconds: 10.38 Trial 2 Assistive Device: IV Pole Trial 3 # of Seconds: 9.71 Trial 3 Assistive Device: IV Pole SIGNATURE: Malinda Zurita RN PATIENT NAME: Concha Woodward DATE: January 05, 2020 TIME: 2:47 PM PAGER/CONTACT #: [phone] Molly Mullen APRN.EVENTS ASSISTANT, EVENTS ASSISTANT 01/05/2020 3:26 PM Signed CARDIOTHORACIC SURGERY PLAN OF CARE SERVICE DATE: January 05, 2020 SERVICE TIME: 3:18 PM Patient is visited today. She is resting comfortably in bed, alert and oriented ?3, denies active chest pain. Updated patient regarding the plan: we are waiting on her Echo and HC discs from [place]. We will present her case tomorrow at heart conference if image is available. She need Brilinta washout.continue Hep Gtt. Needs ASA, BB and statin for CAD management. Completed Carotid US, CT chest and renal consult. Patient is pleased with the plan update. Will continue follow up with patient regarding next step. I spent 25 minutes in the visit, with more than 50% of the total [id number] time of the visit in counseling / coordination of care. 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 Last discharge within 30 days: No Advance Directive: Current Advance Directive: Health Care Power of Vertical Boring Mill Operator In Chart: No Chopper Gun Operator Attempted to Assist with AD Completion: No Unable to Assist Due To:: Other: See Comment(Pt states that she has documents completed at home. ) Health LiteracyHow often do you need to have someone help you when you read instructions, pamphlets, or other written material from your doctor or pharmacy? : 1 - Never How confident are you filling out medical forms by yourself?: 1 - Extremely If Patient scores > 3 on either question, the following interventions were put into place:: Patient did not score > 3 on either question. Baseline Mental Status Prior to this Illness what was the patient's Baseline Mental Status?: Alert AND Oriented Prior to this illness, has anyone described the patient having any of the following behaviors?: Not Applicable Relationship of the informant to the patient:: Self Functional Status: Independent Does Patient Currently Receive Any Community Services or Home Care?: None Equipment Prior to Admission: Cane SOCIAL: Living Arrangements: Home Lives With: Spouse Financial Resources: RetiredPrimary Contact: Extended Emergency Contact Information Primary Emergency Contact: IanChele Address: [address] [place] [address] Relation: Spouse Secondary Emergency Contact: Aristeo Saunders Address: [address] [place] [address] [facility] Mobile Relation: Daughter Supportive Patient Contact:: Yes Social Needs Food insecurity Worry: Patient refused Inability: Patient refused Resources Needed: No Social Needs Financial resource strain: Not very hard Social Needs Transportation needs Medical: Patient refused Non-medical: Patient refused Caregiver AssessmentCaregiver is ready, willing and able to meet the patient's needs as recommended by the inter-professional team:: No Caregiver needed Does the patient have an acute stroke diagnosis, or has the patient had a stroke during this admission?: No Patient's perception of need for this admission: CAD Medication Adherance I am convinced of the importance of my prescription medication: 0 - Agree Mostly I worry that my prescription medication will do more harm than good to me : 0 - Disagree Mostly I feel financially burdened by my [id number] expenses for my prescription medication:: 0 - Disagree Somewhat Risk Score: 0 Patient is categorized as: Low risk < 2 Are you interested in bedside delivery of your medications? No Is Patient Psychosocially Complex?: No ASSESSMENT AND PLAN: Medical Needs: Medical Needs: None Psychosocial Needs: Psychosocial Needs: None FREEDOM OF CHOICE EXPLAINED: POTENTIAL TRANSITION PLANS To Be Determined Spoke with pt at the bedside. 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 Await card surg eval for possible CABG. Will follow clinical progress. SIGNATURE: Patience Christy RN PATIENT NAME: Concha Woodward DATE: January 05, 2020 TIME: 4:02 PM PAGER/CONTACT #: [phone] Cesar Burroughs MD 01/05/2020 4:47 PM Signed CONSULT PROGRESS NOTE NEPHROLOGY SERVICE Subjective INTERVAL HISTORY: We are seeing the patient for issues with SHA and New onset CHF Cr is worse LUDY likely SOB resolved No edema All labs / data/ chart and interval events are noted BP has been stable No issues with urine output Lytes are better No s/o CHF Responding to current rx at this time No other new issues No change in the PFSH at this time ROS is (-) unless mentioned MEDICATIONS: Current Facility-Administered Medications Medication Dose Route Frequency - carvedilol 6.25 mg tab(s) (COREG) 6.25 mg ORAL BID w MEALS - albuterol 2.5 mg /3 mL (0.083 %) 2.5 mg (PROVENTIL) 2.5 mg INHALATION q 4 H PRN - amLODIPine 10 mg tab(s) (NORVASC) 10 mg ORAL DAILY - allopurinol 100 mg tab(s) (ZYLOPRIM) 100 mg ORAL DAILY - aspirin 81 mg chewable tab(s) 81 mg ORAL DAILY - nitroglycerin sublingual 0.4 mg tab(s) (NITROQUICK) 0.4 mg SUBLINGUAL PRN - potassium chloride ER 20-40 mEq tab(s) (K-DUR, KLOR-CON) 20-40 mEq ORAL/FEEDING TUBE PRN Or - potassium chloride iv piggyback 20 mEq/100 mL 20 mEq INTRAVENOUS PRN - magnesium sulfate in water 2 g in sterile water 50 ml 2 g INTRAVENOUS PRN - sodium phosphate 45 mmol in NaCl 0.9% 250 mL 45 mmol INTRAVENOUS PRN - calcium gluconate 4 g in NaCl 0.9% 250 mL 4 g INTRAVENOUS PRN - heparin iv infusion (LOW DOSE ACS/NOMOGRAM) 25,000 units in NaCl 0.45% 250 mL PREMIX 0-3,000 Units/hr INTRAVENOUS CONTINUOUS And - heparin RATE CHANGE bolus 1,000-4,000 Units for subtherapeutic aptt results 1,000-4,000 Units INTRAVENOUS PRN - dextrose 40 % 15 g 15 g ORAL PRN Or - glucagon 1 mg injection (GLUCAGEN) 1 mg INTRAMUSCULAR PRN Or - dextrose 50% in water 25 mL syringe 12.5 g INTRAVENOUS PRN - NaCl 0.9% 3-5 mL 3-5 mL INTRAVENOUS q 12 H - atorvastatin 10 mg tab(s) (LIPITOR) 10 mg ORAL AT BEDTIME - ezetimibe 10 mg tab(s) (ZETIA) 10 mg ORAL DAILY - mupirocin 2 % ointment (BACTROBAN) TOPICAL TID - folic acid 1 mg tab(s) 1 mg ORAL DAILY - ferrous sulfate 325 mg tab(s) 325 mg ORAL BID w MEALS - senna-docusate 8.6-50 mg 1 tablet (SENNA-S) 1 tablet ORAL BID - ascorbic acid (vitamin C) 500 mg tab(s) (VITAMIN C) 500 mg ORAL BID - insulin lispro 0-10 Units pen (rapid acting) (HumaLOG KWIKPEN) 0-10 Units SUBCUTANEOUS w MEALS - insulin glargine 12 Units pen (long acting) (LANTUS SOLOSTAR, BASAGLAR KWIKPEN) 12 Units SUBCUTANEOUS DAILY (8 AM) - insulin lispro 8 Units pen (rapid acting) (HumaLOG KWIKPEN) 8 Units SUBCUTANEOUS w MEALS - furosemide 40 mg tab(s) (LASIX) 40 mg ORAL DAILY - [MAR Hold due to Transfer] lisinopril 20 mg tab(s) (ZESTRIL, PRINIVIL) 20 mg ORAL DAILY PHYSICAL EXAM: BP (!) 103/46 Pulse 70 Temp 36.5 ?C (97.7 ?F) (Oral) Resp 18 Wt 73.3 kg (161 lb 9.6 oz) SpO2 100% BMI 28.63 kg/m? No intake or output data in the 24 hours ending 01/05/20 1642 . HEAD, EYES, ENT: No pallor. No cyanosis. No icterus. Mucous membranes of mouth were moist. NECK: Otherwise supple. Hard for me to see a jugular vein distention elevation. LUNGS: Clear to auscultation. No rales. CARDIOVASCULAR: S1, S2. No rubs or gallops. ABDOMEN: Soft, obese, nontender. Bowel sounds are heard. EXTREMITIES: No peripheral edema. SKIN: Otherwise warm and moist. PSYCH: Normal affect. Does not appear to be anxious, depressed, or agitated. ? DATA: Diagnostic tests reviewed for today's visit: Recent Labs 01/05/20 0354 CO2 23 Specific [place], Ur Date Value Ref Range Status 12/25/2019 1.012 1.005 - 1.030 Final Glucose, Urine Date Value Ref Range Status 12/25/2019 Negative Negative mg/dL Final Bilirubin, Urine Date Value Ref Range Status 12/25/2019 Negative Negative Final Ketones, Urine Date Value Ref Range Status 12/25/2019 Negative Negative Final Hemoglobin/Blood,Ur Date Value Ref Range Status 12/25/2019 Negative Negative Final Protein, Urine Date Value Ref Range Status 01/04/2020 65.5 (H) 0.0 - 11.9 mg/dL Final Urobilinogen, Urine Date Value Ref Range Status 07/01/2012 0.2 Normal (<1.1) EU Final Nitrites Date Value Ref Range Status 12/25/2019 Negative Negative Final Leukocytes Date Value Ref Range Status 07/01/2012 trace Neg Final WBC, Urine Date Value Ref Range Status 12/25/2019 0-5 0 - 5 /HPF Final Recent Labs 01/05/20 0354 01/04/20 0915 01/03/20 2355 NA 137 134* 134* K 3.2* 4.2 4.5 CHLOR 106 103 105 CO2 23 21 20* BUN 46* 38* 37* CREAT 2.16* 1.51* 1.43* GLUC 145* 284* 202* ANION 11 14 14 CA 8.6 9.0 8.8 P -- 3.0 -- Recent Labs 01/05/20 0354 01/03/20 2355 01/03/20 1835 WBC 11.82* 11.96* 10.82* HB 12.0 12.4 13.0 HCT 35.9 36.0 38.4 PLT 335 333 315 Assessment/Plan 84 year old female who presents with IMPRESSION: SHA +ATN from LUDY CKD 3 STEMI Acute systolic CHF 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 Reccomendations Cr is worse CIIN likely Dc ISABELLA-I Back off on diuresis for 24 h With both expect the cr to peak, stabalize and then decrease With the ongoing SHA 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 Denied fever and chills. No chest pain. Noted good appetite. MEDICATIONS: Reviewed Objective PHYSICAL EXAM: BP 112/49 Pulse 67 Temp (Src) 98.1 (Oral) Resp 18 Wt 168 lb 10.4 oz (76.5kg) SpO2 99% O2 Therapy: Room Air Physical Exam Performed GENERAL: Alert, no distress, cooperative SKIN: Skin color, texture, turgor normal. No rashes or lesions. HEAD/SINUSES: No significant findings EYES: PERRLA, EOMI EARS: External ears normal, canals clear NOSE: Nares normal. Septum midline. OROPHARYNX: Lips, mucosa, and tongue normal. Teeth and gums normal. Oropharynx normal. NECK: No jugulovenous distention, No carotid bruits, Carotid pulse normal contour, Supple BACK: Back symmetric, Normal curvature, ROM normal, No CVAT. LUNGS: Lungs clear to auscultation, Good diaphragmatic excursion CARDIAC: Normal S1 and S2; no rubs, murmurs, or gallops ABDOMEN: Abdomen soft, non-tender, BS normal, No masses or organomegaly EXTREMITIES: Extremities normal, no deformities, edema, clubbing or skin discoloration. Good capillary refill., No ulcers NEURO: No Focal neuro deficit PULSES: 2+ radial, 2+ carotid Lines, Drains, and Airways Line Peripheral 01/03/20 1849 Admission to Hospital Short Left Forearm 20 Gauge 2 days Peripheral 01/04/20 1618 Short Right Antecubital 20 Gauge 1 day DATA: Diagnostic tests reviewed for today's visit: Assessment/Plan 1. ACS (acute coronary syndrome) (HCC): Multivessel disease CTS following Continue heparin drip Will await final decision on possible surgical interventions 2. Hypertension Essential: Continue amlodipine, coreg, BP is well controlled 3. Diabetes Mellitus type 2: Good control Continue lantus 12 units QHS On insulin sliding scale 4. Hyperliidemia: On Zetia and statin 5. SHA/CKD: nephro following. Hx of CHF: currently not in exacerbation. Last 2 D Echo in chart noted stage 1 diastolic dysfunction. Medication and Non-Pharmacologic VTE Prophylaxis/Anticoagula nts Anticoagulant AND Antiplatelet Medications (From admission, onward) Start Dose Route Frequency Ordered Stop 01/03/20 1800 aspirin 81 mg chewable tab(s) (Order Panel) 81 mg ORAL DAILY 01/03/201758 -- 01/03/20 1800 heparin iv infusion (LOW DOSE ACS/NOMOGRAM) 25,000 units in NaCl 0.45% 250 mL PREMIX (Heparin Infusion + Rate Change Bolus) 0-30 mL/hr 0-3,000 Units/hr INTRAVENOUS CONTINUOUS 01/03/20 175 -- 01/03/20 1800 vte non-pharmacologic prophylaxis - none indicated (md,oh) 01/03/20 1800 vte current anticoag therapy (md,wa) 01/03/20 1800 activity - mobilize patient (md,wa) VTE Prophylaxis: VTE prophylaxis appropriate Disposition: Home Plan of care discussed with: Patient SIGNATURE: Chandan Tavarez MD PATIENT NAME: Concha Woodward DATE: January 06, 2020 TIME: 10:06 AM PAGER/CONTACT #: [phone] Nettie Cheng APRN.DAYANA, DAYANA 01/06/2020 11:42 AM Signed CARDIOLOGY CONSULT PROGRESS NOTE CARDIOLOGY ATTENDING: Dr. Phillips INTERVAL HISTORY: History of present illness copied and updated 84 year old female PMH T2DM, CAD s/p PCI 30 years ago, CVA on Plavix who was admitted for coronary artery bypass graft eval after presenting as a STEMI to [place]. ? She had been having URI sxs for the last week and was being treated with a 10 day course of amoxicillin. She had associated dry cough and intermittent SOB. Over the last 3 days she's been having bilateral arm pain, that radiated to her chest. She described it as a pressure. She presented to the [place] ED. EKG done in the emergency room revealed Q waves in III and aVF along with ST elevation. It was felt that patient was presenting late with acute ST elevation MO but due to ongoing chest pain that was about 2/10 in intensity she was evaluated and brought emergently to the cardiac [facility] for coronary angiography. Coronary angiography revealed multivessel coronary artery disease with MARTIN-3 flow in all the vessels and she was transferred to [facility] for CABG evaluation. Of note, she takes Plavix at home for her hx CVA and did receive Brilinta in the ED . Transthoracic echocardiogram done at [place] showed left ventricular ejection fraction of 30%, DWMA, no valvular disease. She was transferred to telemetry floor on 01/04/2020, hernias thoracic surgery on consult PERTINENT ROS: Patient denies chest pain, shortness of breath, edema, dizziness or near-syncope MEDICATIONS: Current Facility-Administered Medications Medication Dose Route Frequency - carvedilol 6.25 mg tab(s) (COREG) 6.25 mg ORAL BID w MEALS - albuterol 2.5 mg /3 mL (0.083 %) 2.5 mg (PROVENTIL) 2.5 mg INHALATION q 4 H PRN - amLODIPine 10 mg tab(s) (NORVASC) 10 mg ORAL DAILY - allopurinol 100 mg tab(s) (ZYLOPRIM) 100 mg ORAL DAILY - aspirin 81 mg chewable tab(s) 81 mg ORAL DAILY - nitroglycerin sublingual 0.4 mg tab(s) (NITROQUICK) 0.4 mg SUBLINGUAL PRN - potassium chloride ER 20-40 mEq tab(s) (K-DUR, KLOR-CON) 20-40 mEq ORAL/FEEDING TUBE PRN Or - potassium chloride iv piggyback 20 mEq/100 mL 20 mEq INTRAVENOUS PRN - magnesium sulfate in water 2 g in sterile water 50 ml 2 g INTRAVENOUS PRN - sodium phosphate 45 mmol in NaCl 0.9% 250 mL 45 mmol INTRAVENOUS PRN - calcium gluconate 4 g in NaCl 0.9% 250 mL 4 g INTRAVENOUS PRN - heparin iv infusion (LOW DOSE ACS/NOMOGRAM) 25,000 units in NaCl 0.45% 250 mL PREMIX 0-3,000 Units/hr INTRAVENOUS CONTINUOUS And - heparin RATE CHANGE bolus 1,000-4,000 Units for subtherapeutic aptt results 1,000-4,000 Units INTRAVENOUS PRN - dextrose 40 % 15 g 15 g ORAL PRN Or - glucagon 1 mg injection (GLUCAGEN) 1 mg INTRAMUSCULAR PRN Or - dextrose 50% in water 25 mL syringe 12.5 g INTRAVENOUS PRN - NaCl 0.9% 3-5 mL 3-5 mL INTRAVENOUS q 12 H - atorvastatin 10 mg tab(s) (LIPITOR) 10 mg ORAL AT BEDTIME - ezetimibe 10 mg tab(s) (ZETIA) 10 mg ORAL DAILY - mupirocin 2 % ointment (BACTROBAN) TOPICAL TID - folic acid 1 mg tab(s) 1 mg ORAL DAILY - ferrous sulfate 325 mg tab(s) 325 mg ORAL BID w MEALS - senna-docusate 8.6-50 mg 1 tablet (SENNA-S) 1 tablet ORAL BID - ascorbic acid (vitamin C) 500 mg tab(s) (VITAMIN C) 500 mg ORAL BID - insulin lispro 0-10 Units pen (rapid acting) (HumaLOG KWIKPEN) 0-10 Units SUBCUTANEOUS w MEALS - insulin glargine 12 Units pen (long acting) (LANTUS SOLOSTAR, BASAGLAR KWIKPEN) 12 Units SUBCUTANEOUS DAILY (8 AM) - insulin lispro 8 Units pen (rapid acting) (HumaLOG KWIKPEN) 8 Units SUBCUTANEOUS w MEALS - [MAR Hold due to Transfer] lisinopril 20 mg tab(s) (ZESTRIL, PRINIVIL) 20 mg ORAL DAILY PHYSICAL EXAM: Vital Signs 01/06/20 0032 01/06/20 0532 01/06/20 0535 01/06/20 0816 BP: 122/55 128/59 (!) 112/49 Pulse: 73 70 67 Resp: 17 18 18 Temp: 36.7 ?C (98.1 ?F) 36.7 ?C (98.1 ?F) 36.7 ?C (98.1 ?F) TempSrc: Oral Temporal Oral SpO2: 99% 99% 99% Weight: 76.5 kg (168 lb 10.4 oz) Temp (24hrs), Av.5 ?C (97.7 ?F), Min:36.3 ?C (97.3 ?F), Max:36.8 ?C (98.2 ?F) Intake/Output: No intake or output data in the 24 hours ending 01/06/20 1138 Oxygen therapy: Room air Gen: AANDO x 3 no acute distress Neck: No JVD Cardiac: Regular rate and rhythm Resp: Clear and equal bilateral Abd: Obese Soft, non-tender. Bowel sounds normal. Ext: no edema, moves all extremities with no apparent weakness Tele: Not on telemetry Labs: No results found for this basename: CK:3,MB:3,MBP:3,CKMBP:3 ,TROPT:3 Recent Labs 01/06/20 0545 01/05/20 0354 01/04/20 1615 01/03/20 2355 01/03/20 1835 WBC 9.05 11.82* -- -- 11.96* 10.82* HB 10.9* 12.0 -- -- 12.4 13.0 HCT 32.7* 35.9 -- -- 36.0 38.4 PLT 301 335 -- -- 333 315 INR -- -- -- -- -- 0.94 APTT 56.7* 60.8* 53.3* < > -- 22.3* < > = values in this interval not displayed. Recent Labs 01/06/20 0545 01/05/20 0354 01/04/20 0915 NA 139 137 134* K 3.7 3.2* 4.2 CHLOR 111* 106 103 CO2 20* 23 21 BUN 48* 46* 38* CREAT 1.87* 2.16* 1.51* GLUC 148* 145* 284* Cholesterol, Total 208 01/03/2020 HDL Cholesterol 42 01/03/2020 LDL Chol, Ben 99 01/03/2020 ASSESSMENT AND PLAN: 1. Acute coronary syndrome Multivessel disease awaiting coronary artery bypass graft surgery evaluation, patient received Brilinta therapy on 01/03/2020, had been on Plavix prior for history of CVA. 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 Continue amlodipine, continue beta shravan Cardiothoracic surgery on consult tentative surgery date is this Sunday 6. Currently on heparin drip. 2 history CVA 3. Hypertension: Stable on current treatment no change 4. Diabetes: By inpatient medical team, endocrinology on consult A1c 8.4 5. Hyperlipidemia Started on low-dose dose statin therapy, or myalgias the past, denying complaints with current dose 6. Systolic heart failure: Patient euvolemic, asymptomatic Continue beta shravan, Isabella on hold secondary to SHA Would like to resume at the guidance of nephrology, even after CABG. 7. Carotid stenosis: Management by CT surgery Patient is on heparin drip, aspirin and statin Planning: General cardiology will sign off at this time SIGNATURE:Nettie Cheng APRN.EVENTS ASSISTANT PAGER: DATE / TIME of SERVICE: January 05, 2020 11:13 AM This note is not final until Authenticated by responsible provider. Molly Mullen APRN.DAYANA, DAYANA 01/06/2020 1:31 PM Signed CARDIOTHORACIC SURGERY POSTOP PROGRESS NOTE SERVICE DATE: 01/06/2020 SERVICE TIME: 12:23 PM Subjective S/P SURGERY: Procedure(s) (LRB): DATE OF SURGERY: 01/09/2020 LOS: 3 HPI: This is a 84 years old woman who was transferred from [facility] after presenting with resting chest pain on 01/03/2020. Patient was recently treated with amoxicillin on 12/30 for upper respiratory illness/bronchitis. She reports persistent coughing and some mild shortness of breath. About 24 hrs prior to the ED, she started to have CP, for which she describes it as substernal with radiation to both arms, with using albuterol inhaler making the pain much worse. In ED, EKG showed inferior elevation with Q waves in V3 and aVF with some reciprocal depression in the high lateral leads. She also had positive troponin leak of 4.6 ( peaked at 45.8 at a later time), STEMI protocol was activated in [place] and patient was given Hep Gtt and Brilinta prior undergoing HC. HC revealed severe MV CAD. [place] on showed: Normal LV size with moderate segmental systolic dysfunction, EF 30%. 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 There is also a 2+MR (no valvular mechanism mentioned) noted without other valvular lesions mentioned. She was recommended to be transferred to [facility] for CABG evaluation. 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 She also has an intracranial meningioma s/p gamma knife (this was dx in 10/2008 via MRI to evaluate DZ. GKRS was 08/14/2013), and follows physician up at [facility] with surveillance brain scan now tapered down to every 4 years as the size of the meningioma has been reducing. She is a lifelong nonsmoker without no known COPD, no CHF or cardiac arrhythmia and known to patient. She denies recurrence MO since 32 yo ago and has not had any hospitalization related to CHF or arrhythmia. She denies N/V, diaphoresis, chest palpitation, orthopnea, paroxysmal nocturnal dyspnea, lower extremity edema, presyncope, syncope. She claims to be an active person going to gym 3 times a week. But did noted some SOB recently with some elements of URI. Denies DVT or PE, bleeding or clotting disorder, COPD, liver disease, PAD/PVD, or cancers. FH:+CAD in both parents, both from [place] in 70-80s. SH: lifelong non smoker, no drug/etoh use. INTERVAL EVENTS / PERTINENT ROS: patient is visited today while she rests in bed. Continue receiving heparin drip while undergoing Plavix and Brilinta wash out. Confirmed last dose of Brilinta was and last dose of Plavix was 01/02. Her images of HC and CT chest was reviewed this AM in heart team with consensus recommendation of surgical revascularization after completion of Brilinta and Plavix washout. Patient denies active chest pain and is very willing to cooperate with the team for the upcoming recommendations. Objective Admission Weight: 73.3 kg (161 lb 9.6 oz) BP 121/63 Pulse 80 Temp 36.7 ?C (98.1 ?F) (Oral) Resp 18 Wt 76.5 kg (168 lb 10.4 oz) SpO2 98% BMI 29.88 kg/m? Body surface area is 1.84 meters squared. Min/Max/Average Temperature AND Blood Pressure: Temp (24hrs), Av.7 ?C (98 ?F), Min:36.5 ?C (97.7 ?F), Max:36.7 ?C (98.1 ?F) Systolic (24hrs), Av , Min:103 , Max:128 Diastolic (24hrs), Av, Min:46, Max:76 No intake or output data in the 24 hours ending 01/06/20 1223 TELEMETRY: normal sinus rhythm PHYSICAL EXAM: General Appearance: well developed and no distress Skin: warm and dry Neck: no JVD, no carotid bruits and thyroid not palpable Lungs: wheezes and respiratory effort: normal, on RA Heart: regular rhythm, S1, S2 normal and no murmur Peripheral Vascular/Arteries: pulses intact and radial +2 Abdomen: soft, non-tender and bowel sounds present Genitourinary: voiding without difficulty Musculoskeletal: no deformities Neurologic/Psychiatric: oriented to time, place and person, 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 with 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 on the left lower leg and steady gait Extremities: normal exam of the extremities and no edema Lines, Drains, and Airways Line Peripheral 01/03/20 1849 Admission to Hospital Short Left Forearm 20 Gauge 2 days Peripheral 01/04/20 1618 Short Right Antecubital 20 Gauge 1 day DATA: Diagnostic tests reviewed for today's visit: Significant Lab Results: reviewed Cardiac Catheterization Chest CT Scan ECHO US Carotid Recent Labs 01/06/20 0545 01/05/20 0354 01/04/20 1615 01/04/20 0915 01/03/20 2355 01/03/20 1835 01/03/20 1834 01/03/20 1825 HBA1C -- -- -- -- -- -- -- -- -- 8.4* -- RBC 3.56* 3.98 -- -- -- 4.03 -- 4.31 < > -- -- WBC 9.05 11.82* -- -- -- 11.96* -- 10.82* < > -- -- HB 10.9* 12.0 -- -- -- 12.4 -- 13.0 < > -- -- HCT 32.7* 35.9 -- -- -- 36.0 -- 38.4 < > -- -- PLT 301 335 -- -- -- 333 -- 315 < > -- -- INR -- -- -- -- -- -- -- 0.94 -- -- -- APTT 56.7* 60.8* 53.3* 53.2* < > -- -- 22.3* -- -- -- NA 139 137 -- 134* -- 134* < > -- -- -- -- K 3.7 3.2* -- 4.2 -- 4.5 < > -- -- -- -- CHLOR 111* 106 -- 103 -- 105 < > -- -- -- -- CO2 20* 23 -- 21 -- 20* < > -- -- -- -- BUN 48* 46* -- 38* -- 37* < > -- -- -- -- CREAT 1.87* 2.16* -- 1.51* -- 1.43* < > -- -- -- -- GLUC 148* 145* -- 284* -- 202* < > -- -- -- -- CA 8.2* 8.6 -- 9.0 -- 8.8 < > -- -- -- -- P 3.4 -- -- 3.0 -- -- -- -- -- -- -- ANION 12 11 -- 14 -- 14 < > -- -- -- -- MRSA -- -- -- -- -- -- -- -- -- -- No MRSA detected. < > = values in this interval not displayed. Recent Labs 01/04/20 1615 UPROT 65.5* STS risk score: STS Adult Cardiac Surgery Database Version 2.9 RISK SCORES Procedure: Isolated CAB CALCULATE Risk of Mortality: 8.013% Renal Failure: 11.264% Permanent Stroke: 5.263% Prolonged Ventilation: 20.932% DSW Infection: 0.360% Reoperation: 2.741% Morbidity or Mortality: 33.832% Short Length of Stay: 10.129% Long Length of Stay: 18.230% Assessment/Plan Active Problems: ACS (acute coronary syndrome) (HCC) POA: Yes - Currently chest pain-free -Continue hold Plavix, need Plavix and Brilinta washout for 5-7 days - HT conference: + Surgical disease, recommend CABG after Plavix, Brilinta washout, early OR 3/6. -updated with STS risk score: 8% - work-up completed: Carotid ultrasound, CT chest, renal consultation - will continue review with Dr. Ortiz regarding the work-up findings. Tests/Labs Ordered: 1. None SIGNATURE: Molly Mullen APRN.CNP PATIENT NAME: Concha Woodward DATE: January 06, 2020 TIME: 12:23 PM PAGER/CONTACT #:[phone] Molly Mullen APRN.CNP, CNP 01/08/2020 10:58 AM Signed [facility] Surgery Pre-Op Open Heart Check List Patient Info: Concha Woodward 1935 84 year old Bactrim [Sulfamethoxazole-Trime thoprim]; Codeine; Prednisone; Statins [Skzjdth-Mba-Shf Reductase Inhibitors]; Ultram [Tramadol Hcl] HPI: This is a 84 years old woman who was transferred from [facility] after presenting with resting chest pain on 01/03/2020. Patient was recently treated with amoxicillin on 12/30 for upper respiratory illness/bronchitis. She reports persistent coughing and some mild shortness of breath. About 24 hrs prior to the ED, she started to have CP, for which she describes it as substernal with radiation to both arms, with using albuterol inhaler making the pain much worse. In ED, EKG showed inferior elevation with Q waves in V3 and aVF with some reciprocal depression in the high lateral leads. She also had positive troponin leak of 4.6 ( peaked at 45.8 at a later time), STEMI protocol was activated in [place] and patient was given Hep Gtt and Brilinta prior undergoing HC. HC revealed severe MV CAD. [place] performed [place] on showed: Normal LV size with moderate segmental systolic dysfunction, EF 30%. 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 There is also a 2+MR (no valvular mechanism mentioned) noted without other valvular lesions mentioned. She was recommended to be transferred to [facility] for CABG evaluation. 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 She also has an intracranial meningioma s/p gamma knife (this was dx in 10/2008 via MRI to evaluate DZ. GKRS was 08/14/2013), and follows physician up at [facility] with surveillance brain scan now tapered down to every 4 years as the size of the meningioma has been reducing. She is a lifelong nonsmoker without no known COPD, no CHF or cardiac arrhythmia and known to patient. She denies recurrence MO since 30 yo ago and has not had any hospitalization related to CHF or arrhythmia. She denies N/V, diaphoresis, chest palpitation, orthopnea, paroxysmal nocturnal dyspnea, lower extremity edema, presyncope, syncope. She claims to be an active person going to gym 3 times a week. But did noted some SOB recently (more content not included)... Normal [facility] Hemogramon 01-03-2020 Erythrocyte distribution width (RBC) [Ratio] 13.2 % Normal 11.7-14.4 [facility] Comment on above: Performed By: #### C BC1 #### [facility] [address], [place] [address] Hematocrit (Bld) [Volume fraction] 38.4 % Normal 34.1-44.9 [facility] Comment on above: Performed By: #### C BC1 #### [facility] [address], [place] [address] Hemoglobin (Bld) [Mass/Vol] 13.0 g/dL Normal 11.2-15.7 [facility] Comment on above: Performed By: #### C BC1 #### [facility] [address], [place] [address] MCH (RBC) [Entitic mass] 30.2 pg Normal 25.6-32.2 [facility] Comment on above: Performed By: #### C BC1 #### [facility] [address], [place] [address] MCHC (RBC) [Mass/Vol] 33.9 % Normal 31.6-34.8 [facility] Comment on above: Performed By: #### C BC1 #### [facility] [address], [place] [address] MCV (RBC) [Entitic vol] 89.1 fL Normal 79.4-94.8 [facility] Comment on above: Performed By: #### C BC1 #### [facility] [address] [place] [address] Platelet mean volume (Bld) [Entitic vol] 11.2 fL Normal 9.4-12.3 [facility] Comment on above: Performed By: #### C BC1 #### [facility] [address], [place] [address] Platelets (Bld) [#/Vol] 315 thou/cmm Normal 182-369 [facility] Comment on above: Performed By: #### C BC1 #### [facility] [address], [place] [address] RBC (Bld) [#/Vol] 4.31 mil/cmm Normal 3.93-5.22 [facility] Comment on above: Performed By: #### C BC1 #### [facility] [address], [place] [address] RDW SD 43.4 fl Normal 36.4-46.3 [facility] Comment on above: Performed By: #### C BC1 #### [facility] [address], [place] [address] WBC (Bld) [#/Vol] 10.82 thou/cmm High 3.98-10.04 [facility] Comment on above: Performed By: #### C BC1 #### [facility] [address], [place] [address] Hgb A1con 01-03-2020 HbA1c (Bld) [Mass fraction] 8.4 % High 4.2-6.3 [facility] Comment on above: Result Comment: Meth od is National Glycohemoglobin Standardization Program (NGSP) compliant. Performed By: #### H A1C #### [facility] [address], [place] [address] HbA1c (Bld) [Mass fraction] 194 mg/dl Normal [facility] Comment on above: Performed By: #### H A1C #### [facility] [address], [place] [address] Lipid Profileon 01-03-2020 Cholesterol in HDL [Mass/Vol] 42 mg/dL Normal >40 [facility] Comment on above: Performed By: #### L IPD2 #### [address] [address] Cholesterol in LDL [Mass/Vol] 99 mg/dL Normal [facility] Comment on above: Result Comment: No C AD and with fewer than 2 CAD risk factors <160 mg/dL No CAD but with 2 or more CAD risk factors <130 mg/dL Definite CAD or other atherosclerotic disease <100 mg/dL Performed By: #### L IPD2 #### [facility] [address], [place] [address] Cholesterol in LDL/Cholesterol in HDL [Mass ratio] 2.4 Normal 0.6-3.6 [facility] Comment on above: Result Comment: LDL, VLDL,LDL/HDL, Invalid if Triglyceride >400 Performed By: #### L IPD2 #### [facility] [address], [place] [address] Cholesterol.total/Tanya sterol in HDL [Mass ratio] 5.0 {ratio} Normal 1.8-5.3 [facility] Comment on above: Performed By: #### L IPD2 #### [address] [address] Cholesterol in VLDL [Mass/Vol] 67 mg/dL Normal <50 Desired [facility] Comment on above: Performed By: #### L IPD2 #### [facility] [address], [place] [address] Triglyceride [Mass/Vol] 334 mg/dL High 0-149 [facility] Comment on above: Result Comment: < 20 0 Desirable Result invalid if not a fasting specimen. Performed By: #### L IPD2 #### [facility] [address], [place] [address] Cholesterol [Mass/Vol] 208 mg/dL High 0-199 [facility] Comment on above: Result Comment: <200 Desirable 200-240 Borderline >240 High Performed By: #### L IPD2 #### [facility] [address] [place] [address] MRSA Screenon 01-03-2020 MRSA DNA MARIS+probe Ql (Unsp spec) Test performed at [facility] No MRSA detected. Normal [facility] Comment on above: Performed By: #### P T #### [facility] [address] [place] [address] N-terminal Pro-BNPon 020 Natriuretic peptide B (Bld) [Mass/Vol] 9817 pg/mL Normal [facility] Comment on above: Result Comment: Norm al Reference Range: Patients <75 yrs old <125pg/ml Patients >=75 yrs old <450 pg/ml Performed By: #### P BNP #### [facility] [address], [place] [address] Protimeon 01-03-2020 INR Coag (PPP) [Relative time] 0.94 {INR} Normal 0.90-1.30 [facility] Comment on above: Result Comment: Camille min K Antagonist (VKA) Therapeutic Range: INR 2 to 3 (Target INR of 2.5) Note: For patients treated with VKA drugs, such as warfarin, the [place] [employer] 2012 Guideline recommends a therapeutic INR range of 2 to 3 (target INR of 2.5). This recommendation includes high-risk patients with antiphospholipid syndrome with previous arterial or venous thromboembolism, current-generation mechanical or bioprosthetic aortic heart valve replacement. Note: Patients with mechanical aortic valve replacement and additional risk factors for thromboembolic events (atrial fibrillation, previous thromboembolism, LV dysfunction, hypercoagulable conditions) or an older generation mechanical AVR (i.e., ball in-Cage) or any mechanical MVR should have a INR therapeutic range of 2.5 to 3.5 target INR of 3). Zach GH, et al. Chest 2012; 141:7S-47S Tomi MCLEAN et al. [facility] 2017; 70: 252-289 Performed By: #### P T #### [facility] [address], [place] [address] PT Coag (PPP) [Time] 10.2 s Normal 9.7-13.[address] [facility] Comment on above: Performed By: #### P T #### [facility] [address] [place] [id number] Troponin Ion 01-03-2020 Troponin I.cardiac [Mass/Vol] 33.700 ng/mL Critically high 0.015-0.045 [facility] Comment on above: Performed By: #### T ROP #### [facility] [address] [place] [address] Culture, urine Bacteria identified Cx Nom (U) Positive [facility] Work Phone: Vital Signs Date Time Vital Sign Value Performing Clinician Facility 06-02-2025 10:06-0400 Body mass index (BMI) [Ratio] 30.58 kg/m2 Clement Cortes APRN.CNP Work Phone: [facility] 06-02-2025 10:06-0400 Body temperature 97 [degF] Clement Cortes APRN.EVENTS ASSISTANT Work Phone: [facility] 06-02-2025 10:06-0400 Body weight 74.9 kg Clement Cortes APRN.EVENTS ASSISTANT Work Phone: [facility] 06-02-2025 10:06-0400 Diastolic blood pressure 66 mm[Hg] Clement Cortes APRN.EVENTS ASSISTANT Work Phone: [facility] 06-02-2025 10:06-0400 Heart rate 72 /min Clement Cortes APRN.EVENTS ASSISTANT Work Phone: [facility] 06-02-2025 10:06-0400 Respiratory rate 16 /min Clement Byron CIVIL CAD TECH.EVENTS ASSISTANT Work Phone: [facility] 06-02-2025 10:06-0400 SaO2% (BldA) [Mass fraction] 95 % Clement Cortes CIVIL CAD TECH.EVENTS ASSISTANT Work Phone: [facility] 06-02-2025 10:06-0400 Systolic blood pressure 124 mm[Hg] Clement Cortes CIVIL CAD TECH.EVENTS ASSISTANT Work Phone: [facility] 05-14-2025 13:37-0400 Body height 156.5 cm Ishmael Davis CIVIL CAD TECH.BRICK CLEANER Work Phone: [facility] 05-14-2025 13:37-0400 Body mass index (BMI) [Ratio] 30.54 kg/m2 Ishmael Davis CIVIL CAD TECH.BRICK CLEANER Work Phone: [facility] 05-14-2025 13:37-0400 Body weight 74.8 kg Ishmael Davis CIVIL CAD TECH.BRICK CLEANER Work Phone: [facility] 05-14-2025 13:37-0400 Diastolic blood pressure 77 mm[Hg] Ishmael Davis CIVIL CAD TECH.BRICK CLEANER Work Phone: [facility] 05-14-2025 13:37-0400 Heart rate 69 /min Ishmael Davis CIVIL CAD TECH.BRICK CLEANER Work Phone: [facility] 05-14-2025 13:37-0400 SaO2% (BldA) [Mass fraction] 96 % Ishmael Davis CIVIL CAD TECH.BRICK CLEANER Work Phone: [facility] 05-14-2025 13:37-0400 Systolic blood pressure 152 mm[Hg] Ishmael Davis CIVIL CAD TECH.BRICK CLEANER Work Phone: [facility] 04-30-2025 15:35-0400 Diastolic blood pressure 74 mm[Hg] Dr. Anju Pearce MD Work Phone: [facility] 04-30-2025 15:35-0400 Systolic blood pressure 174 mm[Hg] Dr. Anju Pearce MD Work Phone: [facility] 04-30-2025 15:26-0400 Body height 160.[address] Anju Pearce MD Work Phone: [facility] 04-30-2025 15:26-0400 Body mass index (BMI) [Ratio] 29 kg/m2 Dr. Anju Pearce MD Work Phone: [facility] 04-30-2025 15:26-0400 Body weight 74.[address] Anju Pearce MD Work Phone: [facility] 04-30-2025 15:26-0400 Heart rate 77 /min Dr. Anju Pearce MD Work Phone: [facility] 04-30-2025 15:26-0400 Respiratory rate 16 /min Dr. Anju Pearce MD Work Phone: [facility] 02-19-2025 12:00-0400 Diastolic blood pressure 69 mm[Hg] Ishmael Davis CIVIL CAD TECH.BRICK CLEANER Work Phone: [facility] 02-19-2025 12:00-0400 Heart rate 80 /min Ishmael Davis CIVIL CAD TECH.BRICK CLEANER Work Phone: [facility] 02-19-2025 12:00-0400 Respiratory rate 16 /min Ishmael Davis CIVIL CAD TECH.BRICK CLEANER Work Phone: [facility] 02-19-2025 12:00-0400 Systolic blood pressure 163 mm[Hg] Ishmael Davis CIVIL CAD TECH.BRICK CLEANER Work Phone: [facility] 02-19-2025 09:07-0400 Body mass index (BMI) [Ratio] 31.36 kg/m2 Caridad Anglin CIVIL CAD TECH.EVENTS ASSISTANT Work Phone: [facility] 02-19-2025 09:07-0400 Body temperature 97 [degF] Caridad Anglin CIVIL CAD TECH.EVENTS ASSISTANT Work Phone: [facility] 02-19-2025 09:07-0400 Body weight 76.8 kg Caridad Anglin CIVIL CAD TECH.EVENTS ASSISTANT Work Phone: [facility] 02-19-2025 09:07-0400 Diastolic blood pressure 70 mm[Hg] Caridad Anglin CIVIL CAD TECH.EVENTS ASSISTANT Work Phone: [facility] 02-19-2025 09:07-0400 Heart rate 83 /min Caridad Anglin CIVIL CAD TECH.EVENTS ASSISTANT Work Phone: [facility] 02-19-2025 09:07-0400 Respiratory rate 18 /min Caridad Anglin CIVIL CAD TECH.EVENTS ASSISTANT Work Phone: [facility] 02-19-2025 09:07-0400 SaO2% (BldA) [Mass fraction] 96 % Caridad Anglin CIVIL CAD TECH.EVENTS ASSISTANT Work Phone: [facility] 02-19-2025 09:07-0400 Systolic blood pressure 159 mm[Hg] Caridad Anglin CIVIL CAD TECH.EVENTS ASSISTANT Work Phone: [facility] 01-16-2025 12:39-0400 Body height 156.5 cm Anju Pearce MD Work Phone: [facility] 01-16-2025 12:39-0400 Body mass index (BMI) [Ratio] 30.13 kg/m2 Anju Pearce MD Work Phone: [facility] 01-16-2025 12:39-0400 Body temperature 97 [degF] Anju Pearce MD Work Phone: [facility] 01-16-2025 12:39-0400 Body weight 73.8 kg Anju Pearce MD Work Phone: [facility] 01-16-2025 12:39-0400 Diastolic blood pressure 80 mm[Hg] Anju Pearce MD Work Phone: [facility] 01-16-2025 12:39-0400 Heart rate 80 /min Anju Pearce MD Work Phone: [facility] 01-16-2025 12:39-0400 Respiratory rate 16 /min Anju Pearce MD Work Phone: [facility] 01-16-2025 12:39-0400 Systolic blood pressure 150 mm[Hg] Anju Pearce MD Work Phone: [facility] 01-05-2025 13:49-0500 Body temperature 97.9 [degF] Dr. Anju Pearce MD Work Phone: [facility] 01-05-2025 13:49-0500 Diastolic blood pressure 81 mm[Hg] Dr. Anju Pearce MD Work Phone: [facility] 01-05-2025 13:49-0500 Heart rate 68 /min Dr. Anju Pearce MD Work Phone: [facility] 01-05-2025 13:49-0500 Respiratory rate 18 /min Dr. Anju Pearce MD Work Phone: [facility] 01-05-2025 13:49-0500 SaO2% (BldA) [Mass fraction] 96 % Dr. Anju Pearce MD Work Phone: [facility] 01-05-2025 13:49-0500 Systolic blood pressure 161 mm[Hg] Dr. Anju Pearce MD Work Phone: [facility] 01-05-2025 11:12-0500 Body mass index (BMI) [Ratio] 30.9 kg/m2 Dr. Anju Pearce MD Work Phone: [facility] 01-05-2025 11:12-0500 Body weight 79.[address] Anju Pearce MD Work Phone: [facility] 09-12-2024 13:00-0500 Body mass index (BMI) [Ratio] 30.46 kg/m2 Ishmael Davis CIVIL CAD TECH.BRICK CLEANER Work Phone: [facility] 09-12-2024 13:00-0500 Body weight 78 kg Ishmael Davis CIVIL CAD TECH.BRICK CLEANER Work Phone: [facility] 09-12-2024 13:00-0500 Diastolic blood pressure 67 mm[Hg] Ishmael Davis CIVIL CAD TECH.BRICK CLEANER Work Phone: [facility] 09-12-2024 13:00-0500 Heart rate 80 /min Ishmael Davis CIVIL CAD TECH.BRICK CLEANER Work Phone: [facility] 09-12-2024 13:00-0500 Respiratory rate 16 /min Ishmael Davis CIVIL CAD TECH.BRICK CLEANER Work Phone: [facility] 09-12-2024 13:00-0500 Systolic blood pressure 150 mm[Hg] Ishmael Davis CIVIL CAD TECH.BRICK CLEANER Work Phone: [facility] 05-12-2024 13:08-0400 Diastolic blood pressure 68 mm[Hg] Ishmael Davis CIVIL CAD TECH.BRICK CLEANER Work Phone: [facility] 05-12-2024 13:08-0400 Heart rate 69 /min Ishmael Davis CIVIL CAD TECH.BRICK CLEANER Work Phone: [facility] 05-12-2024 13:08-0400 Systolic blood pressure 147 mm[Hg] Ihsmael Davis CIVIL CAD TECH.BRICK CLEANER Work Phone: [facility] 05-12-2024 13:07-0400 Body mass index (BMI) [Ratio] 30.47 kg/m2 Ishmael Davis CIVIL CAD TECH.BRICK CLEANER Work Phone: [facility] 05-12-2024 13:07-0400 Body weight 78.02 kg Ishmael Davis CIVIL CAD TECH.BRICK CLEANER Work Phone: [facility] 05-12-2024 13:07-0400 Respiratory rate 16 /min Ishmael Davis CIVIL CAD TECH.BRICK CLEANER Work Phone: [facility] 01-11-2024 13:54-0500 Diastolic blood pressure 68 mm[Hg] Anju Pearce MD Work Phone: [facility] 01-11-2024 13:54-0500 Systolic blood pressure 128 mm[Hg] Anju Pearce MD Work Phone: [facility] 09-20-2023 13:14-0500 Diastolic blood pressure 68 mm[Hg] Ishmael Davis CIVIL CAD TECH.BRICK CLEANER Work Phone: [facility] 09-20-2023 13:14-0500 Heart rate 75 /min Ishmael Davis CIVIL CAD TECH.BRICK CLEANER Work Phone: [facility] 09-20-2023 13:14-0500 Systolic blood pressure 145 mm[Hg] Ishmael Davis CIVIL CAD TECH.BRICK CLEANER Work Phone: [facility] 09-20-2023 13:13-0500 Body weight 77.56 kg Ishmael Davis CIVIL CAD TECH.BRICK CLEANER Work Phone: [facility] 09-20-2023 13:13-0500 Respiratory rate 16 /min Ishmael Davis CIVIL CAD TECH.BRICK CLEANER Work Phone: [facility] 09-05-2023 11:46-0400 Diastolic blood pressure 68 mm[Hg] Iesha Bairon CIVIL CAD TECH.EVENTS ASSISTANT Work Phone: [facility] 09-05-2023 11:46-0400 Heart rate 80 /min Iesha Bairon CIVIL CAD TECH.EVENTS ASSISTANT Work Phone: [facility] 09-05-2023 11:46-0400 Systolic blood pressure 156 mm[Hg] Iesha Bairon CIVIL CAD TECH.EVENTS ASSISTANT Work Phone: [facility] 09-05-2023 11:44-0400 Body weight 78.02 kg Iesha Bairon CIVIL CAD TECH.EVENTS ASSISTANT Work Phone: [facility] 09-05-2023 11:44-0400 SaO2% (BldA) [Mass fraction] 98 % Iesha Bairon CIVIL CAD TECH.EVENTS ASSISTANT Work Phone: [facility] 08-23-2023 14:43-0400 Diastolic blood pressure 77 mm[Hg] Ishmael Davis CIVIL CAD TECH.BRICK CLEANER Work Phone: [facility] 08-23-2023 14:43-0400 Heart rate 71 /min Ishmael Davis CIVIL CAD TECH.BRICK CLEANER Work Phone: [facility] 08-23-2023 14:43-0400 Systolic blood pressure 160 mm[Hg] Ishmael Davis CIVIL CAD TECH.BRICK CLEANER Work Phone: [facility] 08-23-2023 14:39-0400 Body weight 75.75 kg Ishmael Davis CIVIL CAD TECH.BRICK CLEANER Work Phone: [facility] 08-23-2023 14:39-0400 Respiratory rate 16 /min Ishmael Davis CIVIL CAD TECH.BRICK CLEANER Work Phone: [facility] 08-14-2023 17:36-0400 Diastolic blood pressure 80 mm[Hg] Anju Pearce MD Work Phone: [facility] 08-14-2023 17:36-0400 Systolic blood pressure 150 mm[Hg] Anju Pearce MD Work Phone: [facility] 08-14-2023 16:43-0400 Body temperature 96.1 [degF] Anju Pearce MD Work Phone: [facility] 08-14-2023 16:43-0400 Body weight 75.75 kg Anju Pearce MD Work Phone: [facility] 08-14-2023 16:43-0400 Heart rate 79 /min Anju Pearce MD Work Phone: [facility] 08-14-2023 16:43-0400 Respiratory rate 18 /min Anju Pearce MD Work Phone: [facility] 08-14-2023 16:43-0400 SaO2% (BldA) [Mass fraction] 97 % Anju Pearce MD Work Phone: [facility] 07-21-2023 10:42-0400 Body temperature 98.2 [degF] Clement Cortes APRN.EVENTS ASSISTANT Work Phone: [facility] 07-21-2023 10:42-0400 Body weight 74.84 kg Clement Cortes APRN.EVENTS ASSISTANT Work Phone: [facility] 07-21-2023 10:42-0400 Diastolic blood pressure 94 mm[Hg] Clement Cortes APRN.EVENTS ASSISTANT Work Phone: [facility] 07-21-2023 10:42-0400 Heart rate 104 /min Clement Cortes APRN.EVENTS ASSISTANT Work Phone: [facility] 07-21-2023 10:42-0400 Respiratory rate 18 /min Clement Cortes APRN.EVENTS ASSISTANT Work Phone: [facility] 07-21-2023 10:42-0400 SaO2% (BldA) [Mass fraction] 97 % Clement Cortes APRN.EVENTS ASSISTANT Work Phone: [facility] 07-21-2023 10:42-0400 Systolic blood pressure 152 mm[Hg] Clement Cortes APRN.EVENTS ASSISTANT Work Phone: [facility] 01-09-2023 14:13-0500 Body temperature 98.29 [degF] Anju Pearce MD Work Phone: [facility] 01-09-2023 14:13-0500 Body weight 78.93 kg Anju Pearce MD Work Phone: [facility] 01-09-2023 14:13-0500 Diastolic blood pressure 72 mm[Hg] Anju Pearce MD Work Phone: [facility] 01-09-2023 14:13-0500 Heart rate 78 /min Anju Pearce MD Work Phone: [facility] 01-09-2023 14:13-0500 Respiratory rate 18 /min Anju Pearce MD Work Phone: [facility] 01-09-2023 14:13-0500 SaO2% (BldA) [Mass fraction] 97 % Anju Pearce MD Work Phone: [facility] 01-09-2023 14:13-0500 Systolic blood pressure 122 mm[Hg] Anju Pearce MD Work Phone: [facility] 01-01-2023 13:33-0500 Diastolic blood pressure 71 mm[Hg] Iesha Waddell CIVIL CAD TECH.EVENTS ASSISTANT Work Phone: [facility] 01-01-2023 13:33-0500 Systolic blood pressure 148 mm[Hg] Iesha Waddell CIVIL CAD TECH.EVENTS ASSISTANT Work Phone: [facility] 01-01-2023 13:31-0500 Body weight 78.93 kg Iesha Waddell CIVIL CAD TECH.EVENTS ASSISTANT Work Phone: [facility] 01-01-2023 13:31-0500 Heart rate 71 /min Iesha Waddell CIVIL CAD TECH.EVENTS ASSISTANT Work Phone: [facility] 01-01-2023 13:31-0500 SaO2% (BldA) [Mass fraction] 98 % Iesha Waddell CIVIL CAD TECH.EVENTS ASSISTANT Work Phone: [facility] 10-03-2022 13:54-0500 Body height 160.[address] Anju Pearce Work Phone: 3(798)063-258861 [place] [address] 10-03-2022 13:54-0500 Body mass index (BMI) [Ratio] 30.1 kg/m2 Dr. Anju Pearce Work Phone: 9(029)972-669161 [place] [address] 10-03-2022 13:54-0500 Body temperature 97.6 [degF] Dr. Anju Pearce Work Phone: 9(260)786-194811 [place] [address] 10-03-2022 13:54-0500 Body weight 77.[address] Anju Pearce Work Phone: 9(593)063-276411 [place] [address] 10-03-2022 13:54-0500 Diastolic blood pressure 96 mm[Hg] Dr. Anju Pearce Work Phone: 8(527)350-845911 [place] [address] 10-03-2022 13:54-0500 Heart rate 74 /min Dr. Anju Pearce Work Phone: 1(823)197-066011 [place] [address] 10-03-2022 13:54-0500 Respiratory rate 16 /min Dr. Anju Pearce Work Phone: 1(861)193-076511 [place] [address] 10-03-2022 13:54-0500 SaO2% (BldA) [Mass fraction] 97 % Dr. Anju Pearce Work Phone: 8(798)473-533511 [place] [address] 10-03-2022 13:54-0500 Systolic blood pressure 170 mm[Hg] Dr. Anju Pearce Work Phone: 8(719)[phone] [place] [address] 07-13-2022 15:19-0400 Body height 157.[address] Anju Pearce Work Phone: [facility] Work Phone: 07-13-2022 15:14-0400 Body mass index (BMI) [Ratio] 31.6 kg/m2 Dr. Anju Pearce Work Phone: [facility] Work Phone: 07-13-2022 15:14-0400 Body weight 78.[address] Anju Pearce Work Phone: [facility] Work Phone: 07-13-2022 15:14-0400 Diastolic blood pressure 76 mm[Hg] Dr. Anju Pearce Work Phone: [facility] Work Phone: 07-13-2022 15:14-0400 Systolic blood pressure 134 mm[Hg] Dr. Anju Pearce Work Phone: [facility] Work Phone: 06-25-2022 09:12-0400 Body temperature 98.2 [degF] Patsy Geo CIVIL CAD TECH.EVENTS ASSISTANT Work Phone: [facility] 06-25-2022 09:12-0400 Body weight 79.38 kg Patsy Geo CIVIL CAD TECH.EVENTS ASSISTANT Work Phone: [facility] 06-25-2022 09:12-0400 Diastolic blood pressure 78 mm[Hg] Patsy Geo CIVIL CAD TECH.EVENTS ASSISTANT Work Phone: [facility] 06-25-2022 09:12-0400 Heart rate 96 /min Patsy Geo CIVIL CAD TECH.EVENTS ASSISTANT Work Phone: [facility] 06-25-2022 09:12-0400 Respiratory rate 18 /min Patsy Geo CIVIL CAD TECH.EVENTS ASSISTANT Work Phone: [facility] 06-25-2022 09:12-0400 SaO2% (BldA) [Mass fraction] 97 % Patsy Geo CIVIL CAD TECH.EVENTS ASSISTANT Work Phone: [facility] 06-25-2022 09:12-0400 Systolic blood pressure 142 mm[Hg] Patsy Diamondk CIVIL CAD TECH.EVENTS ASSISTANT Work Phone: [facility] 01-10-2020 06:24-0500 Body temperature 36.7 Deg [facility] Comment on above: Performed By: #### PBNP #### [place] [id number] 01-09-2020 16:36-0500 Body temperature 36.0 Deg [facility] Comment on above: Performed By: #### LIPD2 #### [place] [id number] Encounters Encounter Date Encounter Type Care Provider Facility Start: 06-02-2025 End: 06-02-2025 Patient encounter procedure Clement Byron ELI.EVENTS ASSISTANT Work Phone: [facility] Comment on above: Pelvic pain (Primary Dx); Hematuria, unspecified type Start: 06-02-2025 End: 06-02-2025 ambulatory ANJU D TALAMPAS Facility:[facility] Start: 05-14-2025 End: 05-14-2025 ambulatory ISHMAEL DAVIS Facility:[facility] Start: 05-14-2025 End: 05-14-2025 Patient encounter procedure Ishmaelgema Davis CIVIL CAD TECH.BRICK CLEANER Work Phone: [facility] Comment on above: Medicare annual well ness visit, subsequent (Primary Dx); Hypertensive kidney disease with stage 3b chronic kidney disease (HCC); Screening for depression; Encounter for screening examination for other mental health and behavioral disorders; Mild anemia; Type 2 diabetes mellitus with stage 3b chronic kidney disease, with long-term current use of insulin (HCC); Chronic renal disease, stage IV (HCC) Start: 05-13-2025 End: 05-13-2025 ambulatory ANJU D TALAMPAS Facility:[facility] Start: 05-06-2025 End: 05-11-2025 ambulatory Lynn Holliday MA [facility] Start: 05-06-2025 End: 05-11-2025 Patient encounter procedure [facility] Comment on above: Population Health Na vigation Outreach ([facility] ) Start: 04-30-2025 End: 04-30-2025 Patient encounter procedure Marika George PA -[facility] Work Phone: Start: 04-30-2025 End: 04-30-[address] Anju Pearce MD Work Phone: [facility] Work Phone: Start: 04-21-2025 End: 04-21-2025 Telephone encounter Anju Pearce MD Work Phone: [facility] Comment on above: Patient Question Refill Request Start: 04-01-2025 End: 04-02-2025 Telephone encounter Anju Pearce MD Work Phone: [facility] [place] Comment on above: Medication Request Start: 03-18-2025 End: 03-18-2025 Refill Anju Pearce MD Work Phone: [address] [place] [address] Comment on above: Refill Request Start: 03-02-2025 End: 05-02-2025 Follow-up encounter Ishmael Davis APRN.BRICK CLEANER Work Phone: [facility] Start: 02-27-2025 End: 04-29-2025 Follow-up encounter Ishmael Davis APRN.BRICK CLEANER Work Phone: [facility] Start: 02-27-2025 End: 02-27-2025 ambulatory ANJU PEARCE Facility:[facility] Start: 02-20-2025 End: 02-20-2025 Follow-up encounter Reese Ga APRN.EVENTS ASSISTANT Work Phone: [facility] Start: 02-19-2025 End: 02-19-2025 Office outpatient visit 25 minutes Ishmael Davis APRN.BRICK CLEANER Work Phone: [facility] [place] Comment on above: Pleural effusion (Pr imary Dx); Chronic heart failure with preserved ejection fraction (HCC); Type 2 diabetes mellitus with stage 3b chronic kidney disease, with long-term current use of insulin (HCC); Hyperlipidemia, unspecified hyperlipidemia type Start: 02-19-2025 End: 02-19-2025 ambulatory ISHMAEL DAVIS Facility:[facility] Start: 02-19-2025 End: 02-19-2025 Subsequent hospital visit by physician Ayush [facility] Work Phone: Radiology Comment on above: Acute cough [R05.1] Start: 02-19-2025 End: 02-19-2025 Patient encounter procedure Caridad Anglin CIVIL CAD TECH.EVENTS ASSISTANT Work Phone: [facility] Comment on above: wheezing (Primary Dx ); Exposure to influenza; Viral illness; Edema, unspecified type Start: 02-19-2025 End: 02-19-2025 ambulatory ANJU PEARCE Facility:[facility] Start: 01-19-2025 End: 01-19-2025 ambulatory Lynn Holliday [facility] [place] Start: 01-19-2025 End: 01-19-2025 [facility] [employer] [facility] [place] Comment on above: Population Health Na [facility] Out[facility] Start: 01-18-2025 End: 01-19-2025 ambulatory Anju Pearce MD Work Phone: [facility] Comment on above: Plavix Start: 01-16-2025 End: 01-16-2025 ambulatory ANJU PEARCE Facility:[facility] Start: 01-16-2025 End: 01-16-2025 Office outpatient visit 25 minutes Anju Pearce MD Work Phone: [facility] [place] Comment on above: Type 2 diabetes britni itus with stage 3b chronic kidney disease, with long-term current use of insulin (HCC) (Primary Dx); Hyperuricemia; Vitamin D deficiency; Macroalbuminuric diabetic nephropathy (HCC); Pure hypercholesterolemia; Hypertension goal BP (blood pressure) < 150/90; Idiopathic gout of multiple sites, unspecified chronicity; 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 Igor Wells DO -Emergency Department Work Phone: Start: 12-25-2024 End: 01-06-2025 ambulatory Anju Pearce MD Work Phone: [facility] Comment on above: Formulary Changes fo r Insulin - here we go again Start: 11-11-2024 End: 11-19-2024 ambulatory Anju Pearce MD Work Phone: [facility] [place] Comment on above: Handicap Placard Start: 10-23-2024 ambulatory Harris Kessler Facility:[facility] Start: 10-23-2024 End: 10-23-2024 ambulatory Marika PADILLA Facility:[facility] Start: 09-22-2024 End: 09-22-2024 ambulatory Anju Pearce Facility[place] Start: 09-17-2024 End: 09-18-2024 ambulatory Anju Pearce MD Work Phone: [facility] [place] Comment on above: NT Pro BNP Start: 09-12-2024 End: 09-12-2024 Office outpatient visit 25 minutes Ishmael Davis BRICK CLEANER Work Phone: [facility] Comment on above: Type 2 diabetes britni itus with stage 3b chronic kidney disease, with long-term current use of insulin (HCC) (Primary Dx); Hypertensive kidney disease with stage 3b chronic kidney disease (HCC); Hypertensive heart and chronic kidney disease with heart failure and stage 1 through stage 4 chronic kidney disease, or unspecified chronic kidney disease (HCC); Hypertension goal BP (blood pressure) < 150/90; Congestive heart failure, unspecified HF chronicity, unspecified heart failure type (HCC); Encounter for immunization Start: 09-12-2024 End: 09-12-2024 ambulatory ANJU PEARCE Facility:[facility] Start: 08-07-2024 End: 08-07-2024 Devante Pearce MD Work Phone: [facility] [place] Comment on above: Refill Request Start: 06-20-2024 End: 06-21-2024 Telephone encounter Anju Pearce MD Work Phone: [facility] [place] Comment on above: Medication Problem Start: 06-19-2024 Telephone encounter Anju constantino MD Work Phone: [facility] Comment on above: Medication Problem Start: 05-12-2024 End: 05-12-2024 Office outpatient visit 25 minutes Ishmael Davis APRN.CNS Work Phone: [facility] Comment on above: Screening for diabet ic retinopathy (Primary Dx); PMB (postmenopausal bleeding); Idiopathic gout of multiple sites, unspecified chronicity; Hyperuricemia; 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); Hypertension goal BP (blood pressure) < 150/90; Type 2 diabetes mellitus with stage 3b chronic kidney disease, with long-term current use of insulin (HCC); Pure hypercholesterolemia; History of CVA (cerebrovascular accident); S/P CABG x 4; Stage 3b chronic kidney disease (HCC); Excessive cerumen in both ear canals Start: 01-16-2024 Refill Iesha Waddell APRN.EVENTS ASSISTANT Work Phone: [facility] Comment on above: Med Change Request Start: 01-14-2024 Refill Anju rebolledo MD Work Phone: [facility] Comment on above: Refill Request (SEE RX NOTES) pharmacy asking for new meter and strips rx Start: 01-11-2024 End: 01-11-2024 Office outpatient visit 25 minutes Anju Pearce MD Work Phone: [facility] Comment on above: Type 2 diabetes britni itus with stage 3b chronic kidney disease, with long-term current use of insulin (HCC) (Primary Dx); Macroalbuminuric diabetic nephropathy (HCC); Vitamin D deficiency; Congestive heart failure, unspecified HF chronicity, unspecified heart failure type (HCC); Postmenopausal bleeding; Mixed hyperlipidemia; Hyperuricemia; Bilateral leg edema; Hypertension goal BP (blood pressure) < 150/90; Chronic renal disease, stage IV (HCC); Paroxysmal atrial fibrillation (HCC); Encounter for long-term current use of medication Start: 12-26-2023 End: 12-26-2023 ambulatory Keiry Hardy [facility] Work Phone: [facility] Comment on above: Congestive heart rosalva lure, unspecified HF chronicity, unspecified heart failure type (HCC) (Primary Dx) Start: 12-26-2023 End: 12-26-2023 Telemedicine consultation with patient Keiry Hardy [facility] Work Phone: [facility] Start: 12-12-2023 Telephone encounter Keiry zhao [facility] Work Phone: [facility] [place] Comment on above: Medication Problem Start: 12-06-2023 Refill Iesha Waddell APRN.EVENTS ASSISTANT Work Phone: [facility] [place] Comment on above: Refill Request Start: 10-01-2023 Telephone encounter Anju constantino MD Work Phone: [facility] [place] Comment on above: Permission to [facility] information Patient Question Start: 09-20-2023 End: 09-20-2023 Office outpatient visit 25 minutes Ishmael Davis APRN.CNS Work Phone: [facility] [place] Comment on above: Type 2 diabetes britni itus with stage 3b chronic kidney disease, with long-term current use of insulin (HCC) (Primary Dx); Chronic renal disease, stage IV (HCC); Hypertension goal BP (blood pressure) < 150/90; Macroalbuminuric diabetic nephropathy (HCC); Congestive heart failure, unspecified HF chronicity, unspecified heart failure type (HCC) Start: 09-11-2023 Refill Anju rebolledo MD Work Phone: [facility] [place] Comment on above: Med Change Request Start: 09-08-2023 Refill Iesha Waddell APRN.CNP Work Phone: [facility] [place] Comment on above: Med Change Request Start: 09-05-2023 End: 09-05-2023 Patient encounter procedure Iesha Waddell APRN.EVENTS ASSISTANT Work Phone: [facility] Comment on above: Hypertension goal BP (blood pressure) < 150/90 (Primary Dx); Type 2 diabetes mellitus with stage 3b chronic kidney disease, with long-term current use of insulin (HCC); Hypertensive kidney disease with stage 3b chronic kidney disease (HCC) Start: 08-31-2023 Telephone encounter Anju constantino MD Work Phone: [facility] [place] Comment on above: Results Start: 08-23-2023 End: 08-23-2023 Office outpatient visit 25 minutes Ishmael Davis APRN.BRICK CLEANER Work Phone: [facility] Comment on above: Encounter for immuni zation (Primary Dx) Start: 08-14-2023 End: 08-14-2023 Office outpatient visit 25 minutes Anju Paerce MD Work Phone: [facility] Comment on above: Type 2 diabetes britni itus with stage 3b chronic kidney disease, with long-term current use of insulin (HCC) (Primary Dx); Hypertension goal BP (blood pressure) < 150/90; Vitamin D deficiency; Macroalbuminuric diabetic nephropathy (HCC); Hyperuricemia; Encounter for immunization; Congestive heart failure, unspecified HF chronicity, unspecified heart failure type (HCC); Stage 3b chronic kidney disease (HCC); Paroxysmal atrial fibrillation with rapid ventricular response (HCC) Start: 07-21-2023 End: 07-21-2023 Patient encounter procedure Clementhien Cortes APRN.EVENTS ASSISTANT Work Phone: [facility] Comment on above: URI, acute (Primary Dx) Start: 07-20-2023 Telephone encounter Anju constantino MD Work Phone: [facility] [place] Comment on above: Medication Problem Start: 07-02-2023 Refill Anju rebolledo MD Work Phone: [facility] Comment on above: Refill Request Start: 06-01-2023 Refill Anju rebolledo MD Work Phone: [facility] Comment on above: Refill Request Start: 04-25-2023 Refill Anju rebolledo MD Work Phone: [facility] [place] Comment on above: Refill Request Start: 03-14-2023 Refill Anju rebolledo MD Work Phone: [facility] [place] Comment on above: Refill Request Start: 02-26-2023 Refill Anju rebolledo MD Work Phone: [facility] [place] Comment on above: Refill Request Start: 01-22-[address] [facility] Start: 01-09-2023 End: 01-09-2023 Office outpatient visit 25 minutes Anju Pearce MD Work Phone: [facility] [place] Comment on above: Type 2 diabetes britni itus with stage 3b chronic kidney disease, with long-term current use of insulin (HCC) (Primary Dx); Stage 3b chronic kidney disease (HCC); Vitamin D deficiency; Mixed hyperlipidemia; Hypertension goal BP (blood pressure) < 150/90; Bilateral leg edema; Swelling of left hand; Positive for macroalbuminuria Start: 01-09-2023 Refill Anju rebolledo MD Work Phone: [facility] [place] Comment on above: Med Change Request Start: 01-02-2023 Telephone encounter Anju constantino MD Work Phone: [facility] [place] Comment on above: Home Health PT Start: 01-01-2023 Telephone encounter Anju constantino MD Work Phone: [facility] [place] Comment on above: Order for Home Healt h Start: 01-01-2023 End: 01-01-2023 Patient encounter procedure Iesha Waddell CIVIL CAD TECH.EVENTS ASSISTANT Work Phone: [facility] [place] Comment on above: Closed fracture of l eft shoulder with routine healing, subsequent encounter (Primary Dx); Mixed hyperlipidemia; Obesity, Class I, BMI 30-34.9; Type 2 diabetes mellitus with stage 3b chronic kidney disease, with long-term current use of insulin (HCC) Start: 12-25-2022 Refill Anju rebolledo MD Work Phone: [facility] Comment on above: Refill Request Start: 10-04-2022 End: 10-04-[address] Anju Pearce Work Phone: [facility] Start: 10-03-2022 End: 10-03-2022 Emergency department patient visit Dr. Anju Pearce Work Phone: [facility]-Emergency Department Start: 08-19-2022 Refill Anju rebolledo MD Work Phone: [facility] [place] Comment on above: Refill Request Start: 07-24-2022 End: 07-24-[address] Anju Pearce Work Phone: [facility] Work Phone: Start: 07-24-2022 End: 07-24-[address] Anju Pearce Work Phone: [facility]-Cat Scan, [facility] Start: 07-13-2022 End: 07-13-[address] Anju Pearce Work Phone: [facility] Work Phone: Start: 07-13-2022 End: 07-13-[address] Anju Pearce Work Phone: [facility]-Laboratory, Specimen Start: 07-13-2022 End: 07-13-[address] Anju Pearce Work Phone: [facility] Start: 07-04-2022 End: 07-04-2022 ambulatory [facility] Work Phone: Start: 07-04-2022 End: 07-04-2022 Patient encounter procedure [facility] Emergency Department, [facility] Start: 06-28-2022 Telephone encounter Anju constantino MD Work Phone: [facility] [place] Comment on above: Fax urine culture an d last offive visit notes Start: 06-28-2022 End: 06-28-2022 Patient encounter procedure [facility]-Laboratory, Specimen Start: 06-26-2022 Telephone encounter Lynn Dove Evens CIVIL CAD TECH.EVENTS ASSISTANT Work Phone: [facility] Comment on above: Results, Lab Start: 06-25-2022 End: 06-25-2022 Office outpatient visit 25 minutes Patsy Guardado CIVIL CAD TECH.EVENTS ASSISTANT Work Phone: [facility] Comment on above: Urinary frequency (P rimary Dx); Acute lower UTI Start: 02-06-2022 Refill Anju rebolledo MD Work Phone: [facility] [place] Comment on above: Refill Request Procedures Date Procedure Procedure Detail Performing Clinician Start: 06-02-2025 Urnls dip stick/tabl et rgnt auto w/o microscopy Clement Cortes CIVIL CAD TECH.EVENTS ASSISTANT Work Phone: Start: 05-14-2025 Adult depression scr eening assessment Ishmael Davis CIVIL CAD TECH.BRICK CLEANER Work Phone: Start: 02-19-2025 Radiologic exam ches t 2 views Caridad Anglin CIVIL CAD TECH.EVENTS ASSISTANT Work Phone: Start: 01-05-2025 SARS-CoV-2, Influenz a & RSV (PCR) Dr. Anju Pearce MD Work Phone: Start: 01-05-2025 X-ray of chest, PA a nd lateral views Dr. Anju Pearce MD Work Phone: Start: 01-05-[address] Anju Pearce MD Work Phone: Start: 05-12-2024 Adult depression scr eening assessment Anju Pearce MD Work Phone: Start: 08-14-2023 INFLUENZA VACCINE, P RSV FREE, AGE 65+ YR, HIGH DOSE, QUADRIVALENT (FLUZONE HIGH-DOSE) Anju Pearce MD Work Phone: Start: 10-03-2022 Plain X-ray of shoulder Dr. Anju Pearce Work Phone: Start: 07-24-2022 Computed tomography of abdomen and pelvis with contrast Dr. Anju Pearce Work Phone: Start: 07-04-2022 Transvaginal echography Start: 07-04-2022 US urinary tract Start: 06-25-2022 Urnls dip stick/tabl et rgnt auto w/o microscopy [facility] Start: 01-11-2020 Electrocardiogram Start: 01-09-2020 History of coronary artery bypass grafting S/P CABG x 4 Anju Pearce MD Work Phone: Start: 01-07-2020 Antibody screen Comment on above: Performed By: #### T ROP #### [place] [id number] History of coronary artery bypass grafting History of coronary artery bypass graft Comment on above: CHAUDHARI-LAD, CHAUDHARI- diag onal, SVG-OM, SVG-RCA 01/09/20 History of coronary artery bypass grafting S/P CABG x 4 Anju Pearce MD Work Phone: History of coronary artery bypass grafting S/P CABG x 4 Ishmael Davis BRICK CLEANER Work Phone: History of coronary artery bypass grafting S/P CABG x 4 Anju Pearce MD Work Phone: Urine culture Dr. Anju lloyd Work Phone: Plan of Treatment Date Care Activity Detail Author Start: 06-16-2032 Urine microalbumin profile [facility] Start: 05-14-2026 Anxiety Screening Anxiety Screening [facility] Start: 05-14-2026 Depression Screening Depression Screening [facility] Start: 05-14-2026 Medicare Annual Wellness Visit Medicare Annual Wellness Visit [facility] Start: 05-13-2026 Hepatitis B surface antibody level LDL Cholesterol [facility] Start: 01-16-2026 Diabetic foot examination Diabetic Foot Exam [facility] Start: 11-13-2025 Hemoglobin A1c measurement HbA1C [facility] Start: 09-12-2025 Covid-19 Vaccine () Covid-19 Vaccine () [facility] Comment on above: Postponed from 07/06/2024 (Declined at t his time) Start: 08-21-2025 End: 08-21-2025 Patient encounter procedure 08/21/2025 3:20 PM EDT Office Visit [facility] [address] [place] [address] Anju Pearce MD [address] [place] [address] 3 month f/u [facility] Comment on above: 3 month f/u Start: 08-14-2025 End: 11-13-2025 Basic metabolic 2000 panel - Serum or Plasma BASIC METABOLIC PANEL Lab Routine Type 2 diabetes mellitus with stage 3b chronic kidney disease, with long-term current use of insulin (HCC) Chronic renal disease, stage IV (HCC) Expected: 08/14/2025 (Approximate), Expires: 11/13/2025 [facility] Work Phone: Comment on above: Expected: 08/14/2025 (Approximate), Expi res: 11/13/2025 Start: 08-14-2025 End: 11-13-2025 CBC W Auto Differential panel - Blood COMPLETE BLOOD COUNT AND DIFFERENTIAL Lab Routine Mild anemia Expected: 08/14/2025 (Approximate), Expires: 11/13/2025 [facility] Comment on above: Expected: 08/14/2025 (Approximate), Expi res: 11/13/2025 Start: 07-06-2025 Influenza vaccination Influenza Vaccine (#1) [facility] Start: 05-14-2025 End: 05-14-2025 Patient encounter procedure [facility] Comment on above: 4 month f/u Start: 05-12-2025 Anxiety Screening Anxiety Screening [facility] Start: 05-12-2025 Depression Screening Depression Screening [facility] Start: 05-05-2025 End: 08-04-2025 25-hydroxyvitamin D3 [Mass/volume] in Serum or Plasma VITAMIN D 25 HYDROXY Lab Routine Vitamin D deficiency Expected: 05/05/2025 (Approximate), Expires: 08/04/2025 [facility] Comment on above: Expected: 05/05/2025 (Approximate), Expi res: 08/04/2025 Start: 05-05-2025 End: 08-04-2025 CBC panel - Blood by Automated count COMPLETE BLOOD COUNT Lab Routine Type 2 diabetes mellitus with stage 3b chronic kidney disease, with long-term current use of insulin (HCC) Hypertension goal BP (blood pressure) < 150/90 Expected: 05/05/2025 (Approximate), Expires: 08/04/2025 [facility] Comment on above: Expected: 05/05/2025 (Approximate), Expi res: 08/04/2025 Start: 05-05-2025 End: 08-04-2025 Comprehensive metabolic 2000 panel - Serum or Plasma COMPREHENSIVE METABOLIC PANEL Lab Routine Type 2 diabetes mellitus with stage 3b chronic kidney disease, with long-term current use of insulin (HCC) Hypertension goal BP (blood pressure) < 150/90 Expected: 05/05/2025 (Approximate), Expires: 08/04/2025 [facility] Comment on above: Expected: 05/05/2025 (Approximate), Expi res: 08/04/2025 Start: 05-05-2025 End: 08-04-2025 Hemoglobin A1c in Blood HEMOGLOBIN A1C Lab Routine Type 2 diabetes mellitus with stage 3b chronic kidney disease, with long-term current use of insulin (HCC) Expected: 05/05/2025 (Approximate), Expires: 08/04/2025 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, 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) Expected: 05/05/2025 (Approximate), Expires: 08/04/2025 [facility] Comment on above: Expected: 05/05/2025 (Approximate), Expi res: 08/04/2025 Start: 05-05-2025 End: 08-04-2025 Urate [Mass/volume] in Serum or Plasma URIC ACID Lab Routine Hyperuricemia Expected: 05/05/2025 (Approximate), Expires: 08/04/2025 [facility] Comment on above: Expected: 05/05/2025 (Approximate), Expi res: 08/04/2025 Start: 03-17-2025 Glaucoma screening Dilated Retinal Exam [facility] Start: 03-12-2025 Hemoglobin A1c measurement HbA1C [facility] Start: 02-26-2025 End: 03-21-2026 XR Chest PA and Lateral XR CHEST 2V FRONTAL/LAT Radiology STAT Pleural effusion Expected: 02/26/2025 (Approximate), Expires: 03/21/2026 [facility] Work Phone: Comment on above: Expected: 02/26/2025 (Approximate), Expi res: 03/21/2026 Start: 01-16-2025 End: 01-16-2025 Patient encounter procedure 01/16/2025 1:00 PM EDT Office Visit [facility] [place] [address] [place] [address] Anju Pearce MD [address] [place] [address] 1 yr f/u [facility] [place] Comment on above: 1 yr f/u Start: 01-10-2025 Covid-19 Vaccine ( season) Covid-19 Vaccine () [facility] Comment on above: Postponed from 07/06/2023 (Declined at t his time) Start: 01-10-2025 Diabetic foot examination Diabetic Foot Exam [facility] Start: 01-09-2025 Hepatitis B surface antibody level LDL Cholesterol [facility] Start: 01-05-2025 [facility] Start: 11-09-2024 Hemoglobin A1c measurement HbA1C [facility] Start: 11-05-2024 Advance Directive Discussion Advance Directive Discussion [facility] Start: 09-12-2024 End: 12-12-2024 Basic metabolic 2000 panel - Serum or Plasma [facility] Work Phone: Comment on above: Expected: 09/12/2024, Expires: Start: 09-12-2024 End: 12-12-2024 Hemoglobin A1c in Blood [facility] Comment on above: Expected: 09/12/2024, Expires: Start: 09-12-2024 End: 12-12-2024 Natriuretic peptide.B prohormone N-Terminal [Mass/volume] in Serum or Plasma [facility] Comment on above: Expected: 09/12/2024, Expires: Start: 09-12-2024 End: 09-12-2024 Patient encounter procedure 09/12/2024 1:00 PM EST Office Visit [facility] [place] [address], [place] [id number] Ishmael Davis APRN.BRICK CLEANER [address] [place], [place] [id number] 4 month f/u [facility] [place] Comment on above: 4 month f/u Start: 07-12-2024 Hemoglobin A1c measurement HbA1C [facility] Start: 07-06-2024 Covid-19 Vaccine ( season) Covid-19 Vaccine ( season) [facility] Start: 07-06-2024 Influenza vaccination Influenza Vaccine (#1) [facility] Start: 05-12-2024 End: 08-11-2024 25-hydroxyvitamin D3 [Mass/volume] in Serum or Plasma VITAMIN D 25 HYDROXY Lab Routine Vitamin D deficiency Encounter for long-term current use of medication Expected: 05/12/2024 (Approximate), Expires: 08/11/2024 [facility] Work Phone: Comment on above: Expected: 05/12/2024 (Approximate), Expi res: 08/11/2024 Start: 05-12-2024 End: 08-11-2024 CBC panel - Blood by Automated count CBC Lab Routine Encounter for long-term current use of medication Hypertension goal BP (blood pressure) < 150/90 Expected: 05/12/2024 (Approximate), Expires: 08/11/2024 [facility] Work Phone: Comment on above: Expected: 05/12/2024 (Approximate), Expi res: 08/11/2024 Start: 05-12-2024 End: 08-11-2024 Comprehensive metabolic 2000 panel - Serum or Plasma COMP METABOLIC PANEL Lab Routine Type 2 diabetes mellitus with stage 3b chronic kidney disease, with long-term current use of insulin (HCC) Encounter for long-term current use of medication Hypertension goal BP (blood pressure) < 150/90 Expected: 05/12/2024 (Approximate), Expires: 08/11/2024 [facility] Work Phone: Comment on above: Expected: 05/12/2024 (Approximate), Expi res: 08/11/2024 Start: 05-12-2024 End: 08-11-2024 Hemoglobin A1c in Blood HGB A1C Lab Routine Type 2 diabetes mellitus with stage 3b chronic kidney disease, with long-term current use of insulin (HCC) Encounter for long-term current use of medication Expected: 05/12/2024 (Approximate), Expires: 08/11/2024 [facility] Work Phone: Comment on above: Expected: 05/12/2024 (Approximate), Expi res: 08/11/2024 Start: 02-23-2024 Hemoglobin A1c measurement HbA1C [facility] Start: 02-23-2024 Hemoglobin A1c/Hemoglobin.total in Blood HbA1C [facility] Start: 02-19-2024 Hepb vaccine adult 3 dose schedule for im use HEP B VACCINE, 3-DOSE, AGE 20+ YR (ENGERIX-B, RECOMBIVAX HB) Immunization/Injection Routine Encounter for immunization Expected: 02/19/2024 [facility] Work Phone: Comment on above: Expected: 02/19/2024 Start: 01-07-2024 Hepatitis B surface antibody level LDL CHOLESTEROL [facility] Start: 01-04-2024 End: 03-05-2024 25-hydroxyvitamin D3 [Mass/volume] in Serum or Plasma VITAMIN D 25 HYDROXY Lab Routine Vitamin D deficiency Expected: 01/04/2024 (Approximate), Expires: 03/05/2024 [facility] Work Phone: Comment on above: Expected: 01/04/2024 (Approximate), Expi res: 03/05/2024 Start: 01-04-2024 End: 03-05-2024 ALBUMIN/CREAT RATIO RND UR ALBUMIN/CREAT RATIO RND UR Lab Routine Macroalbuminuric diabetic nephropathy (HCC) Expected: 01/04/2024 (Approximate), Expires: 03/05/2024 [facility] Work Phone: Comment on above: Expected: 01/04/2024 (Approximate), Expi res: 03/05/2024 Start: 01-04-2024 End: 03-05-2024 CBC panel - Blood by Automated count CBC Lab Routine Hypertension goal BP (blood pressure) < 150/90 Expected: 01/04/2024 (Approximate), Expires: 03/05/2024 [facility] Work Phone: Comment on above: Expected: 01/04/2024 (Approximate), Expi res: 03/05/2024 Start: 01-04-2024 End: 03-05-2024 Comprehensive metabolic 2000 panel - Serum or Plasma COMP METABOLIC PANEL Lab Routine Type 2 diabetes mellitus with stage 3b chronic kidney disease, with long-term current use of insulin (HCC) Hypertension goal BP (blood pressure) < 150/90 Expected: 01/04/2024 (Approximate), Expires: 03/05/2024 [facility] Work Phone: Comment on above: Expected: 01/04/2024 (Approximate), Expi res: 03/05/2024 Start: 01-04-2024 End: 03-05-2024 Hemoglobin A1c in Blood HGB A1C Lab Routine Type 2 diabetes mellitus with stage 3b chronic kidney disease, with long-term current use of insulin (HCC) Expected: 01/04/2024 (Approximate), Expires: 03/05/2024 [facility] Work Phone: Comment on above: Expected: 01/04/2024 (Approximate), Expi res: 03/05/2024 Start: 01-04-2024 End: 04-14-2024 Lipid 1996 panel - Serum or Plasma LIPID PANEL BASIC Lab Routine Type 2 diabetes mellitus with stage 3b chronic kidney disease, with long-term current use of insulin (HCC) Expected: 01/04/2024 (Approximate), Expires: 04/14/2024 [facility] Work Phone: Comment on above: Expected: 01/04/2024 (Approximate), Expi res: 04/14/2024 Start: 01-04-2024 End: 03-05-2024 Urate [Mass/volume] in Serum or Plasma URIC ACID BLOOD Lab Routine Hyperuricemia Expected: 01/04/2024 (Approximate), Expires: 03/05/2024 [facility] Work Phone: Comment on above: Expected: 01/04/2024 (Approximate), Expi res: 03/05/2024 Start: 01-04-2024 End: 03-05-2024 Urinalysis complete panel - Urine URINALYSIS, WITH MICROSCOPIC Lab Routine Macroalbuminuric diabetic nephropathy (HCC) Expected: 01/04/2024 (Approximate), Expires: 03/05/2024 [facility] Work Phone: Comment on above: Expected: 01/04/2024 (Approximate), Expi res: 03/05/2024 Start: 11-05-2023 Advance Directive Discussion Advance Directive Discussion [facility] Start: 11-05-2023 Depression Assessment Depression Assessment [facility] Start: 10-02-2023 Glaucoma screening Dilated Retinal Exam [facility] Start: 10-02-2023 Hepatitis C antibody, confirmatory test DILATED RETINAL EXAM [facility] Start: 09-23-2023 Hepb vaccine adult 3 dose schedule for im use HEP B VACCINE, 3-DOSE, AGE 20+ YR (ENGERIX-B, RECOMBIVAX HB) Immunization/Injection Routine Encounter for immunization Expected: 09/23/2023 [facility] Work Phone: Comment on above: Expected: 09/23/2023 Start: 07-21-2023 End: 08-04-2023 COVID & INFLUENZA A/B & RSV NAAT, ROUTINE COVID & INFLUENZA A/B & RSV NAAT, ROUTINE Microbiology Routine URI, acute Expected: 07/21/2023, Expires: 08/04/2023 [facility] Work Phone: Comment on above: Expected: 07/21/2023, Expires: Start: 07-09-2023 Hemoglobin A1c/Hemoglobin.total in Blood HBA1C [facility] Start: 07-06-2023 Covid-19 Vaccine () Covid-19 Vaccine () [facility] Start: 07-06-2023 Influenza vaccination [facility] Start: 05-24-2023 Urine microalbumin profile DTAP,TDAP,TD (1 - Tdap) [facility] Comment on above: Postponed from 05/21/2007 (Declined at t his time) Start: 05-17-2023 Hepatitis B surface antibody level LDL CHOLESTEROL [facility] Start: 05-11-2023 End: 07-11-2023 25-hydroxyvitamin D3 [Mass/volume] in Serum or Plasma VITAMIN D 25 HYDROXY Lab Routine Vitamin D deficiency Expected: 05/11/2023 (Approximate), Expires: 07/11/2023 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 Work Phone: Comment on above: Expected: 05/11/2023 (Approximate), Expi res: 07/11/2023 Start: 05-11-2023 End: 07-11-2023 Basic metabolic 2000 panel - Serum or Plasma BASIC METABOLIC PNL Lab Routine Type 2 diabetes mellitus with stage 3b chronic kidney disease, with long-term current use of insulin (HCC) Stage 3b chronic kidney disease (HCC) Expected: 05/11/2023 (Approximate), Expires: 07/11/2023 [facility] Work Phone: Comment on above: Expected: 05/11/2023 (Approximate), Expi res: 07/11/2023 Start: 01-07-2023 COVID-19 VACCINE (5 - Moderna series) COVID-19 VACCINE (5 - Moderna series) [facility] Start: 11-17-2022 Hemoglobin A1c/Hemoglobin.total in Blood HBA1C [facility] Start: 11-05-2022 ADVANCE DIRECTIVE DISCUSSION ADVANCE DIRECTIVE DISCUSSION [facility] Start: 11-05-2022 DEPRESSION ASSESSMENT DEPRESSION ASSESSMENT [facility] Start: 10-21-2022 3 comp foot exam completed DIABETIC FOOT EXAM [facility] Start: 10-21-2022 Diabetic foot examination Diabetic Foot Exam [facility] Start: 10-05-2022 Patient referral [facility] Work Phone: Start: 09-27-2022 Hepatitis C antibody, confirmatory test DILATED RETINAL EXAM [facility] Start: 09-24-2022 COVID-19 VACCINE (4 - Booster for Moderna series) COVID-19 VACCINE (4 - Booster for Moderna series) [facility] Comment on above: Postponed from 01/20/2022 (Declined at t his time) Postponed from 11/17 (Declined at this time) Start: 07-06-2022 Influenza vaccination INFLUENZA (#1) [facility] Start: 03-15-2022 Hemoglobin A1c/Hemoglobin.total in Blood HBA1C [facility] Start: 01-01-2022 Hepatitis B surface antibody level LDL CHOLESTEROL [facility] Start: 11-17-2021 COVID-19 VACCINE (4 - Booster for Moderna series) COVID-19 VACCINE (4 - Booster for Moderna series) [facility] Start: 11-05-2021 ADVANCE DIRECTIVE DISCUSSION ADVANCE DIRECTIVE DISCUSSION [facility] Start: 11-05-2021 DEPRESSION ASSESSMENT DEPRESSION ASSESSMENT [facility] Start: 05-03-2020 Medicare Annual Wellness Visit Medicare Annual Wellness Visit [facility] Start: 05-21-2007 Urine microalbumin profile DTAP,TDAP,TD (1 - Tdap) [facility] Start: 1997 Hepatitis B Vaccine (1 of 3 - Risk 3-dose series) Hepatitis B Vaccine (1 of 3 - Risk 3-dose series) [facility] Start: 1997 RSV Vaccine (1 - 1-dose 60+ series) RSV Vaccine (1 - 1-dose 60+ series) [facility] Bacteria identified in Urine by Culture URINE CULTURE Microbiology Routine Urinary frequency Ordered: 06/25/2022 [facility] Work Phone: Comment on above: Ordered: 06/25/2022 Bacteria identified in Urine by Culture BACTERIAL CULTURE, URINE Microbiology Routine Pelvic pain 06/02/2025 10:[address] [facility] Work Phone: COVID & INFLUENZA A/ B & RSV PCR, ROUTINE COVID & INFLUENZA A/B & RSV PCR, ROUTINE Microbiology Routine wheezing Exposure to influenza Viral illness 02/19/2025 9:[address] [facility] Work Phone: End: 09-18-2025 Echocardiography ECHO Cardiology Routine Heart failure with reduced ejection fraction (HCC) Hypertension goal BP (blood pressure) < 150/90 S/P CABG x 4 Paroxysmal atrial fibrillation with rapid ventricular response (HCC) 1 Occurrences starting 09/18/2024 until 09/18/2025 [facility] Work Phone: Comment on above: 1 Occurrences starting 09/18/2024 until 09/18/2025 Hepb vaccine adult 3 dose schedule for im use HEP B VACCINE, 3-DOSE, AGE 20+ YR (ENGERIX-B, RECOMBIVAX HB) Immunization/Injection Routine Encounter for immunization 1 Occurrences starting 08/23/2023 [facility] Work Phone: Comment on above: 1 Occurrences starting 08/23/2023 Patient Education [facility] Work Phone: Patient referral [facility] Work Phone: PFIZER-BIONTECH COVI D-19 VACCINE (2022- SEASON) AGE 12+ YR PFIZER-BIONTECH COVID-19 VACCINE ( SEASON) AGE 12+ YR Immunization/Injection Routine Encounter for immunization 1 Occurrences starting 08/23/2023 [facility] Work Phone: Comment on above: 1 Occurrences starting 08/23/2023 ROUTINE FLU A/B + RSV ROUTINE FL U A/B + RSV Lab Routine URI, acute Ordered: 07/21/2023 [facility] Work Phone: Comment on above: Ordered: 07/21/2023 SARS-CoV-2 (COVID-19 ) RNA [Presence] in Respiratory specimen by MARIS with probe detection COVID NAAT, UPPER RESPIRATORY, ROUTINE Microbiology Routine URI, acute Ordered: 07/21/2023 [facility] Work Phone: Comment on above: Ordered: 07/21/2023 UA DIP, URINE (POC) UA DIP, URIN E (POC) Lab Routine Urinary frequency Ordered: 06/25/2022 [facility] Work Phone: Comment on above: Ordered: 06/25/2022 [facility] Immunizations Immunization Date Immunization Notes Care Provider [facility] 08-13-2024 Seasonal trivalent influenza vaccine, adjuvanted, preservative free Ishmael Davis APRN.BRICK CLEANER Work Phone: [facility] 08-13-2024 influenza virus vacc ine, unspecified formulation Lynn Holliday MA [facility] 08-31-2023 respiratory syncytia l virus (RSV) vaccine, bivalent (ABRYSVO) Anju Pearce MD Work Phone: [facility] Work Phone: 08-14-2023 influenza (HD-IIV4) vaccine, age 65+ yr, high dose, quadrivalent, PF (FLUZONE HIGH-DOSE) Ishmael Davis APRN.BRICK CLEANER Work Phone: [facility] 08-14-2023 influenza virus vacc ine, unspecified formulation Ishmael Davis APRN.BRICK CLEANER Work Phone: [facility] 07-12-2022 influenza (aIIV4) vaccine, age 65+ yr, quadrivalent, PF (FLUAD QUAD) Anju Pearce MD Work Phone: [facility] 07-12-2022 influenza, injectabl e, quadrivalent, contains preservative Anju Pearce MD Work Phone: [facility] Work Phone: 07-12-2022 influenza virus vacc ine, unspecified formulation Clement Cortes APRN.CNP Work Phone: [facility] 06-16-2022 tetanus toxoid, redu sadiq diphtheria toxoid, and acellular pertussis vaccine, adsorbed Anju Pearce MD Work Phone: [facility] 04-06-2022 pneumococcal polysaccharide vaccine, 23 valent Anju Pearce MD Work Phone: [facility] 08-17-2021 influenza (HD-IIV4) vaccine, age 65+ yr, high dose, quadrivalent, PF (FLUZONE HIGH-DOSE) Anju Pearce MD Work Phone: [facility] 12-24-2020 COVID-19 vaccine, fu ll dose (MODERNA) Anju Pearce MD Work Phone: [facility] 11-26-2020 COVID-19 vaccine, fu ll dose (MODERNA) Anju Pearce MD Work Phone: [facility] 09-04-2020 zoster vaccine recombinant Anju Pearce MD Work Phone: [facility] 07-30-2020 influenza, high dose seasonal, preservative-free Anju Pearce MD Work Phone: [facility] 04-30-2020 zoster vaccine recombinant Anju Pearce MD Work Phone: [facility] 09-02-2019 influenza, high dose seasonal, preservative-free Anju Pearce MD Work Phone: [facility] 08-05-2019 Influenza virus vaccine [facility] 07-19-2018 influenza, high dose seasonal, preservative-free Anju Pearce MD Work Phone: [facility] Work Phone: 08-13-2017 influenza, high dose seasonal, preservative-free Anju Pearce MD Work Phone: [facility] 08-23-2016 influenza, high dose seasonal, preservative-free Anju Pearce MD Work Phone: [facility] Work Phone: 10-23-2015 pneumococcal conjuga te vaccine, 13 valent Anju Pearce MD Work Phone: [facility] 08-21-2013 influenza virus vacc ine, unspecified formulation Anju Pearce MD Work Phone: [facility] 07-25-2012 influenza virus vacc ine, unspecified formulation Anju Pearce MD Work Phone: [facility] Work Phone: 08-07-2011 influenza virus vacc ine, unspecified formulation Anju Pearce MD Work Phone: [facility] 01-06-2011 zoster vaccine, live Anju ervin MD Work Phone: [facility] Work Phone: 08-10-2010 influenza virus vacc ine, unspecified formulation Anju Pearce MD Work Phone: [facility] Work Phone: 10-25-2009 novel influenza-H1N1 -09, all formulations Anju Pearce MD Work Phone: [facility] Work Phone: 08-23-2009 influenza virus vacc ine, unspecified formulation Anju Pearce MD Work Phone: [facility] Work Phone: 09-09-2008 influenza virus vacc ine, unspecified formulation Anju Pearce MD Work Phone: [facility] 09-04-2007 influenza virus vacc ine, unspecified formulation Anju Pearce MD Work Phone: [facility] Work Phone: 05-20-2007 tetanus and diphther ia toxoids, adsorbed, preservative free, for adult use (2 Lf of tetanus toxoid and 2 Lf of diphtheria toxoid) Anju Pearce MD Work Phone: [facility] 09-13-2006 influenza virus vacc ine, unspecified formulation Anju Pearce MD Work Phone: [facility] Work Phone: 08-31-2005 influenza virus vacc ine, unspecified formulation Anju Pearce MD Work Phone: [facility] Work Phone: 08-31-2005 pneumococcal polysaccharide vaccine, 23 valent Anju Pearce MD Work Phone: [facility] Work Phone: 08-31-2005 Pneumococcal Vaccine [facility] Work Phone: 08-31-2005 pneumococcal vaccine , unspecified formulation Dr. Anju Pearce Work Phone: [facility] Payers Date Payer Category Payer Self-pay [id number] 2020 Medicare MEDICARE MEDICAR E A AND B [id number] 2020-Present [phone] [address] [address] [place] [address] Medicare [id number] 2003 Private Health Insurance [employer] SUPPLEMENT [id number] 2003-Present [phone] [address] [place] [address] Indemnity [id number] 2003 Private Health Insurance [id number] 2003 Private Health Insurance [id number] 2002 Medicare [id number] 2002 Medicare [id number] Unknown [id number] Unknown [id number] Unknown [id number] Unknown [id number] Unknown [id number] Social History Date Type Detail Facility Start: 08-07-2011 Tobacco smoking status NHIS Never smoked tobacco [facility] Start: 01-05-2022 End: 05-14-2025 Alcohol intake Current non-drinker of alcohol (finding) [facility] Start: 05-02-2020 End: 09-14-2021 History SDOH Alcohol Frequency 1 [facility] Start: 08-30-2020 History SDOH Social Connections Phone 4 [facility] Start: 05-02-2020 End: 08-30-2020 History SDOH Social Connections Get Together 3 [facility] Start: 08-30-2020 End: 09-14-2021 History SDOH Stress 2 [facility] Start: 05-02-2020 History SDOH Financial 5 [facility] Start: 08-29-2020 Education 21 [facility] Start: 1935 Sex Assigned At Not on file [facility] Start: 01-09-2022 End: 06-25-2022 Exposure to SARS-CoV-2 (event) Not sure [facility] Start: 08-07-2011 Tobacco use and exposure Smokeless tobacco non-user [facility] Start: 11-17-2021 End: 10-04-2022 Tobacco smoking status NHIS Unknown if ever smoked [facility] Start: 06-28-2022 None [facility] Start: 01-17-2020 Spouse/ Significant Other [facility] Start: 01-17-2020 Non-smoker [facility] Start: 1935 Sex Assigned At Female [facility] Start: 01-09-2023 End: 09-12-2024 History of Social function [facility] Work Phone: Start: 01-09-2023 End: 09-12-2024 Tobacco use panel [facility] Work Phone: Adult Depression Screening Assessment 3 [facility] Work Phone: How often to you hav e a drink containing alcohol? Never [facility] Do you feel stress - tense, restless, nervous, or anxious, or unable to sleep at night because your mind is troubled all the time - these days [OSQ] Only a little [facility] (I/We) worried wheeleazar er (my/our) food would run out before (I/we) got money to buy more. Never true [facility] In the past 12 month s, was there a time when you were not able to pay the mortgage or rent on time? No [facility] Do you belong to any clubs or organizations such as sabianism groups, unions, fraternal or athletic groups, or school groups? Yes [facility] Are you now , , , , never or living with a partner? [facility] How hard is it for y ou to pay for the very basics like food, housing, medical care, and heating Not very hard [facility] Start: 01-05-2025 Tobacco smoking status NHIS Ex-smoker (finding) [facility] Medical Equipment Procedure Code Equipment Code Equipment Original Text Equipment Identifier Dates [id number], [id number], [id number], [id number] Start: 01-02-2022 End: 03-18-2025 Comment on above: Test blood sugar(s) 3 times daily. Dx: Type 2 DM - Uncontrolled E11.65 Insulin: Yes Use one needle for e ach dose. 1x/day. testing 3 times adair y DX E11.65 Insulin Yes testing glucose 3 ti mes daily Insulin Yes Test blood sugar(s) 3 times daily. Dx: Type 2 DM - Controlled E11.65 Insulin: Yes Functional Status Date Assessment Result Facility 05-14-2025 Total score [AUDIT-C] 0 05/14/20 25 1:38 PM EDT Flores Bob MA [facility] 01-17-2020 Are you deaf, or do you have serious difficulty hearing No 01/17/2020 9:17 AM EDT Laurel Doyle RN No [facility] 01-17-2020 Are you blind, or do you have serious difficulty seeing, even when wearing glasses No 01/17/2020 9:17 AM EDT Laurel Doyle, RITA No [facility] 01-17-2020 Do you have serious difficulty walking or climbing stairs Yes 01/17/2020 9:17 AM EDT Laurel Doyle, RITA Yes [facility] 01-17-2020 Do you have difficul ty dressing or bathing Yes 01/17/2020 9:17 AM EDT Laurel Doyle, RITA Yes [facility] 01-17-2020 Because of a physica l, mental, or emotional condition, do you have difficulty doing errands alone such as visiting a physician's office or shopping Yes 01/17/2020 9:17 AM EDT Laurel Doyle, RITA Yes [facility] Mental Status Date Assessment Result Facility 01-05-2025 Cognitive function Level Of Cons ciousness Awake;Alert;Appropriate;Fo llows Commands [facility] [place] [place] [facility] Work Phone: 01-17-2020 Because of a physica l, mental, or emotional condition, do you have serious difficulty concentrating, remembering, or making decisions No 01/17/2020 9:17 AM EDT Laurel Doyle, RITA No [facility] Clinical Notes 01-03-2020 to 06-02-2025 Clement Cortes APRN.EVENTS ASSISTANT - 06/02/2025 10:20 AM Ishmael Edwards APRN.BRICK CLEANER - 05/14/2025 1:40 PM EDTPatient InstructionsAnju Pearce MD - 05/09/2025 2:39 PM EDTPatient Instructions Note Date & Type Note Facility 06-02-2025 Note HNO ID: [id number] Author: CLEMENT CORTES APRN.EVENTS ASSISTANT Service: ? Author Type: Nurse Practitioner Type: Progress Notes Filed: 06/02/2025 10:21 Note Text: [facility] Veronica Woodward is a 89 year old female. Patient presents with: Pelvic Pain: pressure x 3 days HPI Pelvic Pain: - Onset: Approximately one week ago. - Location: Midline pelvic region. - Character: Described as pressure. - Severity: Rates pain as 8/10. - Denies dysuria, hematuria, or sharp pain. - Denies associated fever or chills. - Denies any risk of STIs. - No recent history of UTIs; last episode was a long time ago. - Denies known allergies to antibiotics. Review of Systems Genitourinary: (+) pelvic pressure, (+) urinary frequency, (-) dysuria, (-) flank pain, (-) sharp pelvic pain Objective BP 124/66 Pulse 72 Temp 36.1 ?C (97 ?F) Resp 16 Wt 74.9 kg (165 lb 2 oz) SpO2 95% BMI 30.58 kg/m? Physical Exam General: No acute distress. CV: Heart sounds normal. Resp: Breath sounds normal. Abd: Suprapubic tenderness to palpation, no sharp pain reported. Back: No costovertebral angle tenderness. { 1. Pelvic pain (R10.2) 2. Hematuria, unspecified type (R31.9) - Acute suprapubic pressure pain (8/10) without dysuria, back/flank pain, or fever; urinalysis negative for WBCs and nitrites, but positive for hematuria. - Differential includes UTI (despite negative dip), other causes of hematuria if culture negative. - Urine culture sent. - Start keflex BID for 5 days. - Advised patient to go to the emergency room if pain worsens, becomes sharp, or if fever or other symptoms develop. - If urine culture is negative, advised follow-up with primary care provider to evaluate other causes of hematuria. and Recording using Bazaart software for draft documentation of the visit was discussed with the patient/authorized employee relations representative; all questions welcomed and answered. Patient/authorized employee relations representative agreed to proceed MDM Procedures [facility] 06-02-2025 History of Present illness Narrative [facility] Bolanos Gema Woodward is a 89 year old female. Patient presents with: Pelvic Pain: pressure x 3 days HPI Pelvic Pain: - Onset: Approximately one week ago. - Location: Midline pelvic region. - Character: Described as pressure. - Severity: Rates pain as 8/10. - Denies dysuria, hematuria, or sharp pain. - Denies associated fever or chills. - Denies any risk of STIs. - No recent history of UTIs; last episode was a long time ago. - Denies known allergies to antibiotics. Review of Systems Genitourinary: (+) pelvic pressure, (+) urinary frequency, (-) dysuria, (-) flank pain, (-) sharp pelvic pain Objective BP 124/66 Pulse 72 Temp 36.1 C (97 F) Resp 16 Wt 74.9 kg (165 lb 2 oz) SpO2 95% BMI 30.58 kg/m Physical Exam General: No acute distress. CV: Heart sounds normal. Resp: Breath sounds normal. Abd: Suprapubic tenderness to palpation, no sharp pain reported. Back: No costovertebral angle tenderness. { 1. Pelvic pain (R10.2) 2. Hematuria, unspecified type (R31.9) - Acute suprapubic pressure pain (8/10) without dysuria, back/flank pain, or fever; urinalysis negative for WBCs and nitrites, but positive for hematuria. - Differential includes UTI (despite negative dip), other causes of hematuria if culture negative. - Urine culture sent. - Start keflex BID for 5 days. - Advised patient to go to the emergency room if pain worsens, becomes sharp, or if fever or other symptoms develop. - If urine culture is negative, advised follow-up with primary care provider to evaluate other causes of hematuria. and Recording using Bazaart software for draft documentation of the visit was discussed with the patient/authorized employee relations representative; all questions welcomed and answered. Patient/authorized employee relations representative agreed to proceed MDM Procedures documented in this encounter [facility] 05-14-2025 History of Present illness Narrative Images from the original note were not included. Concha Woodward is a 89 year old female here for a Medicare wellness visit. Medicare Health Risk Assessment General Health Good Exercise: Minutes/Day 30 min Exercise: Days/Week 2 days Alcohol: Daily Use Never Alcohol: Drinks/Day Patient does not drink Alcohol: 6 or more drinks Never Feel off balance No Concerns: Teeth/Dentures No Concerns: Sexual function No Troubled by feelings Lonely Frequency: Eating healthy diet More than half the days ADLs requiring help None of the above Safety precautions in home/vehicle Yes Smoke, vape, chews tobacco No Difficulty hearing No Difficulty seeing Yes (last eye exam 1/2 months ago) Current Providers Specialists: I have reviewed specialist-related care of the patient in the medical record. Annual Wellness Exam: - Chelo Corbin reports decreased energy levels. - Lives independently; reports missing her spouse. - Has a living will and healthcare proxy in place. Hypertension: - Chelo Corbin monitors blood pressure at home; readings have been upper limits of normal. - Recently started taking Red Beet supplements x1 week. - Follow-up with cardiology scheduled in June. Diabetes Mellitus: - Recent A1c: 7.4% (previously 7.7%). - Managed with insulin QID (with meals and at bedtime). - Chelo Corbin reports difficulty with new medications, including Farxiga, which was discontinued after 1-2 doses due to adverse effects. Defers alternate medication at this time Chronic Kidney Disease: - Kidney function described as not good, but stable. - Chelo Corbin does not see a comp field case manager. - Reports minimal thirst and low fluid intake, stating she could go all day without a drink of water. - Drinks one cup of coffee daily; consumes quite a bit of milk. - Nocturia x3-4 times per night; keeps a bottle of water in the bathroom to sip during the night. Anemia: - Recent labs indicate slight anemia. - Chelo Corbin is taking aict-elu-kulohda iron supplement daily with meals; denies gastrointestinal side effects. Medical/Family history review Reviewed and updated problem list, medical/surgical/family/social history, medications, and allergies. Opioid use review Opioid Medications (last 90 days) No data to display Anxiety/Depression screening PHQ-2 Score: 0 (Lower risk for depression) ERICKA-2 Score: 0 (Lower risk for anxiety) Recommendation: no further intervention at this time Cognitive screening Mini Cog Score: 5 Cognitive screening reviewed and No further action needed (score 3-5). Functional Observation Was the patient's Timed Up & Go test unsteady or >= 12 seconds? No Advance Care Planning Surrogate decision maker and/or advance care plan documented Measurements BP 152/77 (BP Site: Left Arm, BP Position: Sitting, BP Cuff Size: Regular Adult) Pulse 69 Ht 156.5 cm (5' 1.61) Wt 74.8 kg (164 lb 14.5 oz) SpO2 96% BMI 30.54 kg/m Vision Screening: Follows with optometry/ophthalmology Assessment/Plan Medicare annual wellness visit, subsequent (Z00.00) - Counseled on healthy diet and regular exercise - Fall avoidance information provided - Personalized prevention plan provided OV Anju Pearce MD and labs in 3 months Ishmael Davis APRN.BRICK CLEANER documented in this encounter [facility] 05-14-2025 Note HNO ID: [id number] Author: ISHMAEL DAVIS APRN.BRICK CLEANER Service: ? Author Type: Nurse Specialist Type: Progress Notes Filed: 05/29/2025 16:17 Note Text: Concha Woodward is a 89 year old female here for a Medicare wellness visit. Medicare Health Risk Assessment General Health Good Exercise: Minutes/Day 30 min Exercise: Days/Week 2 days Alcohol: Daily Use Never Alcohol: Drinks/Day Patient does not drink Alcohol: 6 or more drinks Never Feel off balance No Concerns: Teeth/Dentures No Concerns: Sexual function No Troubled by feelings Lonely Frequency: Eating healthy diet More than half the days ADLs requiring help None of the above Safety precautions in home/vehicle Yes Smoke, vape, chews tobacco No Difficulty hearing No Difficulty seeing Yes (last eye exam 1/2 months ago) Current Providers Specialists: I have reviewed specialist-related care of the patient in the medical record. Annual Wellness Exam: - Chelo Corbin reports decreased energy levels. - Lives independently; reports missing her spouse. - Has a living will and healthcare proxy in place. Hypertension: - Chelo Corbin monitors blood pressure at home; readings have been upper limits of normal. - Recently started taking Red Beet supplements x1 week. - Follow-up with cardiology scheduled in June. Diabetes Mellitus: - Recent A1c: 7.4% (previously 7.7%). - Managed with insulin QID (with meals and at bedtime). - Chelo Corbin reports difficulty with new medications, including Farxiga, which was discontinued after 1-2 doses due to adverse effects. Defers alternate medication at this time Stage 3b Chronic Kidney Disease: - Kidney function described as not good, but stable. - Chelo Corbin does not see a comp field case manager. - Reports minimal thirst and low fluid intake, stating she could go all day without a drink of water. - Drinks one cup of coffee daily; consumes quite a bit of milk. - Nocturia x3-4 times per night; keeps a bottle of water in the bathroom to sip during the night. Anemia: - Recent labs indicate slight anemia. - Chelo Corbin is taking xnis-dro-sgzvylm iron supplement daily with meals; denies gastrointestinal side effects. Medical/Family history review Reviewed and updated problem list, medical/surgical/family/social history, medications, and allergies. Opioid use review Opioid Medications (last 90 days) No data to display Anxiety/Depression screening PHQ-2 Score: 0 (Lower risk for depression) ERICKA-2 Score: 0 (Lower risk for anxiety) Recommendation: no further intervention at this time Cognitive screening Mini Cog Score: 5 Cognitive screening reviewed and No further action needed (score 3-5). Functional Observation Was the patient's Timed Up AND Go test unsteady or >= 12 seconds? No Advance Care Planning Surrogate decision maker and/or advance care plan documented Measurements BP 152/77 (BP Site: Left Arm, BP Position: Sitting, BP Cuff Size: Regular Adult) Pulse 69 Ht 156.5 cm (5' 1.61) Wt 74.8 kg (164 lb 14.5 oz) SpO2 96% BMI 30.54 kg/m? Vision Screening: Follows with optometry/ophthalmology Assessment/Plan Medicare annual wellness visit, subsequent (Z00.00) - Counseled on healthy diet and regular exercise - Fall avoidance information provided - Personalized prevention plan provided OV Anju Pearce MD and labs in 3 months Ishmael Davis APRN.BRICK CLEANER [facility] 05-14-2025 Instructions Ishmael Davis APRN.BRICK CLEANER - 05/14/2025 1:31 PM EDT Latest Ref Rng 05/13/2025 Protein, Total 6.3 - 8.0 g/dL 7.4 Albumin 3.9 - 4.9 g/dL 4.2 Calcium 8.5 - 10.2 mg/dL 9.7 Bilirubin, Total 0.2 - 1.3 mg/dL 0.4 Alkaline Phosphatase 34 - 123 U/L 92 AST 13 - 35 U/L 15 ALT 7 - 38 U/L 16 Glucose 74 - 99 mg/dL 125 (H) BUN 7 - 21 mg/dL 56 (H) Creatinine 0.58 - 0.96 mg/dL 2.29 (H) Sodium 136 - 144 mmol/L 138 Potassium 3.7 - 5.1 mmol/L 4.6 Chloride 98 - 107 mmol/L 106 CO2 22 - 30 mmol/L 18 (L) Anion Gap 8 - 15 mmol/L 14 eGFR >=60 mL/min/1.73m 20 (L) WBC 3.70 - 11.00 k/uL 8.07 RBC 3.90 - 5.20 m/uL 3.50 (L) Hemoglobin 11.5 - 15.5 g/dL 10.6 (L) Hematocrit 36.0 - 46.0 % 32.0 (L) MCV 80.0 - 100.0 fL 91.4 MCH 26.0 - 34.0 pg 30.3 MCHC 30.5 - 36.0 g/dL 33.1 RDW-CV 11.5 - 15.0 % 14.0 Platelet Count 150 - 400 k/uL 255 MPV 9.0 - 12.7 fL 11.5 Absolute nRBC <0.01 k/uL <0.01 Cholesterol, Total <200 mg/dL 138 Triglyceride <150 mg/dL 110 HDL Cholesterol >39 mg/dL 51 LDL Cholesterol, Calculated <100 mg/dL 67 Non HDL Cholesterol <130 mg/dL 87 VLDL Cholesterol <30 mg/dL 16 TC:HDL Ratio <5.10 2.71 LDL:HDL Ratio <2.54 1.31 Fasting Time hrs 9 Creatinine, Ur Random (UCRR) 20.0 - 300.0 mg/dL 83.3 Albumin, Urine Random mg/L 1,451.0 Albumin/Creat Ratio <30 mg/g 1,742 (H) Hemoglobin A1C 4.3 - 5.6 % 7.4 (H) Estimated Average Glucose mg/dL 166 Vitamin D 25 Hydroxy 31.0 - 80.0 ng/mL 36.0 Uric Acid 2.5 - 6.6 mg/dL 6.1 Screening schedule The following prevention plan is recommended: Medicare Annual Wellness Visit Never done Dilated Retinal Exam due on 03/17/2025 Depression Screening due on 05/12/2025 Anxiety Screening due on 05/12/2025 WHAT YOU CAN DO TO PREVENT FALLS Many falls can be prevented. By making some changes, you can lower your chances of falling. Four things YOU can do to prevent falls for you* and your caregiver 1. Begin a regular exercise program Exercise is one of the most important ways to lower your chances of falling. It makes you stronger and helps you feel better. Exercises that improve balance and coordination (like Raffi Chi) are the most helpful. Lack of exercise leads to weakness and increases your chances of falling. Ask your doctor or health care provider about the best type of exercise program for you. 2. Have your health care provider review your medicines Have your doctor or pharmacist review all the medicines you take, even ipxy-jwo-gdgiihl medicines. As you get older, the way medicines work in your body can change. Some medicines, or combinations of medicines, can make you sleepy or dizzy and can cause you to fall. 3. Have your vision checked Have your eyes checked by an eye doctor at least once a year. You may be wearing the wrong glasses or have a condition like glaucoma or cataracts that limits your vision. Poor vision can increase your chances of falling. 4. Make your home safer About half of all falls happen at home. To make your home safer: Remove things you can trip over (like papers, books, clothes, and shoes) from stairs and places where you walk. Remove small throw rugs or use double-sided tape to keep the rugs from slipping. Keep items you use often in cabinets you can reach easily without using a step stool. Have grab bars put in next to your toilet and in the tub or shower. Use non-slip mats in the bathtub and on shower floors. Improve the lighting in your home. As you get older, you need brighter lights to see well. Hang light-weight curtains or shades to reduce glare. Have handrails and lights put in on all staircases. Wear shoes both inside and outside the house. Avoid going barefoot or wearing slippers. For more information, contact: Centers for Disease Control and Prevention www.cdc.gov/injury * This information may not apply if you have certain medical conditions. documented in this encounter [facility] 05-11-2025 Note HNO ID: [id number] Author: LYNN HOLLIDAY MA Service: ? Author Type: Outboard Motorboat Rigger Type: Progress Notes Filed: 05/11/2025 16:03 Note Text: POPULATION HEALTH NAVIGATION OUTREACH Action/FYI Spoke to Chelo Corbin . She will get lab work done Sunday. Reason for Outreach Care Gap/HCC or Scheduling Wellness Visits Care Gaps due: Medicare Annual Wellness Visit Patient Contacted: Spoke to patient/parent/or legal guardian Patient identified by name and : Yes Care Gap/HCC/Scheduling Wellness actions taken: HCC related Navigation Signature: Lynn Holliday MA May 11, 2025 4:01 PM [facility] 05-09-2025 Note HNO ID: [id number] Author: ANJU PEARCE MD Service: ? Author Type: Physician Type: Progress Notes Filed: 05/11/2025 07:44 Note Text: Patient already has orders from 01/16/25 for May labs to be done. Make sure patient aware has labs ordered so may do prior to appointment with Ishmael or day of if too difficult to come to office twice the week of her appointment. [facility] 05-09-2025 History of Present illness Narrative Patient already has orders from 01/16/25 for May labs to be done. Make sure patient aware has labs ordered so may do prior to appointment with Ishmael or day of if too difficult to come to office twice the week of her appointment. POPULATION HEALTH NAVIGATION OUTREACH Action/FYI UPDATED APPOINTMENT NOTE HCC Topic Due (Y or N) Comments Medicare Wellness Y PCP Follow up Colorectal Cancer Screening Controlling Blood Pressure A1C Y HCC Y Flu Vaccine Care Everywhere Reviewed MyChart Activation Updated Appointment Note Reason for Outreach Care Gap/HCC or Scheduling Wellness Visits Care Gaps due: Medicare Annual Wellness Visit HBA1C Patient Contacted: Unable or unnecessary to reach patient: HCC related Patient already scheduled Updated appointment notes Navigation Signature: Lynn Holliday MA May 06, 2025 10:35 AM documented in this encounter [place] [id number] Note HNO ID: [id number] Author: LYNN HOLLIDAY MA Service: ? Author Type: Outboard Motorboat Rigger Type: Progress Notes Filed: 05/11/2025 07:44 Note Text: POPULATION HEALTH NAVIGATION OUTREACH Action/FYI UPDATED APPOINTMENT NOTE HCC Topic Due (Y or N) Comments Medicare Wellness Y PCP Follow up Colorectal Cancer Screening Controlling Blood Pressure A1C Y HCC Y Flu Vaccine Care Everywhere Reviewed MyChart Activation Updated Appointment Note Reason for Outreach Care Gap/HCC or Scheduling Wellness Visits Care Gaps due: Medicare Annual Wellness Visit HBA1C Patient Contacted: Unable or unnecessary to reach patient: HCC related Patient already scheduled Updated appointment notes Navigation Signature: Lynn Holliday MA May 06, 2025 10:35 AM [facility] 05-06-2025 Note Patient Outreach (NE TNAV) CONCHA WOODWARD I ([id number]) 1935 F Date Time Provider Department 05/06/25 LYNN HOLLIDAY During your visit today, we recorded the following information about you: Lynn Holliday MA 05/11/2025 7:44 AM Signed POPULATION HEALTH NAVIGATION OUTREACH Action/FYI UPDATED APPOINTMENT NOTE HCC Topic Due (Y or N) Comments Medicare Wellness Y PCP Follow up Colorectal Cancer Screening Controlling Blood Pressure A1C Y HCC Y Flu Vaccine Care Everywhere Reviewed MyChart Activation Updated Appointment Note Reason for Outreach Care Gap/HCC or Scheduling Wellness Visits Care Gaps due: Medicare Annual Wellness Visit HBA1C Patient Contacted: Unable or unnecessary to reach patient: HCC related Patient already scheduled Updated appointment notes Navigation Signature: Lynn Holliday MA May 06, 2025 10:35 AM Anju Pearce MD 05/11/2025 7:44 AM Signed Patient already has orders from 01/16/25 for May labs to be done. Make sure patient aware has labs ordered so may do prior to appointment with Ishmael or day of if too difficult to come to office twice the week of her appointment. Lynn Holliday MA 05/11/2025 4:03 PM Signed POPULATION HEALTH NAVIGATION OUTREACH Action/FYI Spoke to Chelo Corbin . She will get lab work done Sunday. Reason for Outreach Care Gap/HCC or Scheduling Wellness Visits Care Gaps due: Medicare Annual Wellness Visit Patient Contacted: Spoke to patient/parent/or legal guardian Patient identified by name and : Yes Care Gap/HCC/Scheduling Wellness actions taken: HCC related Navigation Signature: Lynn Holliday MA May 11, 2025 4:01 PM Allergies As of Date: 05/06/2025 Noted Allergy Reaction BACTRIM (SULFAMETHOXAZOLE-TRIMETH*06/10/20 08 11 - Vomiting CODEINE 08/31/2005 11 - Vomiting FARXIGA (DAPAGLIFLOZIN) 09/12/2024 8 - GI Upset PREDNISONE 09/05/2012 11 - Vomiting STATINS ([id number] REDUCTAS*05/25/2009 5 - Intolerance ULTRAM (TRAMADOL HCL) 01/17/2013 11 - Vomiting Date Reviewed: 02/19/2025 Reviewed by: Susana Harry LPN - Fully Assessed Reason for Visit: Population Health Navigation Outreach [3910] Cmt: JOSE CONTRERAS PCSA Visit Diagnosis:Type 2 diabetes mellitus with stage 3b chronic kidney disease, with long-term current use of insulin (HCC) [E11.22, N18.32, Z79.4] Prescriptions as of 05/11/2025 - amLODIPine (NORVASC) 10 mg tablet Take 1 tablet by mouth once daily. Dose change, take 1 daily - losartan (COZAAR) 50 mg tablet Take 1 tablet by mouth once daily. - metoprolol succinate ER (TOPROL XL) 100 mg Take 1 tablet by mouth once daily. - blood sugar diagnostic (BLOOD GLUCOSE TEST) test strip Test blood sugar(s) 3 times daily. Dx: Type 2 DM - Controlled E11.65 Insulin: Yes - albuterol HFA (PROVENTIL HFA) 90 mcg/actuation inhaler Inhale 1-2 puffs as instructed four times a day as needed for wheezing/shortness of breath. - ondansetron orally disintegrating (ZOFRAN ODT) 4 mg disintegrating tablet Take 1 tablet by mouth every 6 hours as needed. - benzonatate (TESSALON PERLE) 100 mg capsule Take 1-2 capsules by mouth three times a day as needed. - allopurinol (ZYLOPRIM) 100 mg tablet Take 1 tablet by mouth once daily. - rosuvastatin (CRESTOR) 5 mg tablet Take 1 tablet by mouth once daily. As directed - insulin aspart U-100 (NOVOLOG) 100 unit/mL (3 mL) inject 8 units subcutaneously once daily WITH BREAKFAST AND 3 UNITS DAILY WITH LUNCH AND 6 UNITS DAILY WITH DINNER - insulin glargine-yfgn (SEMGLEE) 100 unit/mL (3 mL) insulin pen Inject 14 Units subcutaneously daily at bedtime. - carbamide peroxide (DEBROX) 6.5 % otic solution Use 5 Drops in both ears two times a day. - Blood-Glucose Meter (TRUE METRIX GLUCOSE METER) 1 Kit three times a day. testing 3 times daily DX E11.65 Insulin Yes - lancets (UNILET LANCETS) 30 gauge testing glucose 3 times daily Insulin Yes - Insulin [place], Disposable, (BD ULTRA-FINE JOHN PEN NEEDLE) 32 gauge x 5/32 Use one needle for each dose. 1x/day. - Cholecalciferol, Vitamin D3, 25 mcg (1,000 unit) cap Take 1 capsule by mouth once daily. (1000 to 2000 IU daily fine) - aspirin 81 mg chewable tablet Take 1 tablet by mouth once daily. - white petrolatum-mineral oil (SYSTANE NIGHTTIME) 94-3 % ophthalmic ointment Use 1 application in both eyes daily at bedtime. - RESTASIS 0.05 % ophthalmic emulsion Use 1 Drop in both eyes twice daily. - calcium carbonate 600 mg-cholecalciferol 400 units 600 mg-10 mcg (400 unit) tab Take 1 tablet by mouth once daily. Problem List As Of Date 05/06/2025 Noted Resolved Unspecified cardiovascular disease [I25.10] 03/21/2017 Hypertension goal BP (blood pressure) < 150/90 * DIABETES MELLITUS TYPE II UNCONTR UNCOMPL [IMO0* 12/26/2008 Pure hypercholesterolemia [E78.00] Osteopenia [M89.9, M94.9] (more content not included)... [facility] 04-21-2025 Telephone encounter Note Patient calls and states that [facility] did not transfer medication to [facility]. [facility] told patient to have PCP resend medication to them. The patient has been identified by name and date of : Yes Caregiver verified no other encounters exist for this prescription request: Yes Caregiver confirmed with patient/requestor that no other refills are due, in the near future, with this provider at this time: Yes The last office visit in the department: 02/19/2025 Does the patient have a future office visit with this provider/department: Yes 05/14/2025 Requested Prescriptions Pending Prescriptions Disp Refills amLODIPine (NORVASC) 10 mg tablet 90 tablet 3 Sig: Take 1 tablet by mouth once daily. Dose change, take 1 daily Miriam Pepe RN April 21, 2025 10:05 AM [facility] 04-21-2025 Miscellaneous Notes Patient calls and states that [facility] did not transfer medication to [facility]. [facility] told patient to have PCP resend medication to them. The patient has been identified by name and date of : Yes Caregiver verified no other encounters exist for this prescription request: Yes Caregiver confirmed with patient/requestor that no other refills are due, in the near future, with this provider at this time: Yes The last office visit in the department: 02/19/2025 Does the patient have a future office visit with this provider/department: Yes 05/14/2025 Requested Prescriptions Pending Prescriptions Disp Refills amLODIPine (NORVASC) 10 mg tablet 90 tablet 3 Sig: Take 1 tablet by mouth once daily. Dose change, take 1 daily Miriam Pepe RN April 21, 2025 10:05 AM documented in this encounter [facility] 04-21-2025 Telephone encounter Note Pt called in and reports she takes 4 medications in the morning, but she only has 3 bottles. She was wanting to know if I could help her figure out the one she was missing. She was missing the Amlodipine. I let her know she just needs to call her pharmacy as she has refills available. Esthela Linder RN [facility] 04-21-2025 Miscellaneous Notes Pt called in and reports she takes 4 medications in the morning, but she only has 3 bottles. She was wanting to know if I could help her figure out the one she was missing. She was missing the Amlodipine. I let her know she just needs to call her pharmacy as she has refills available. Esthela Linder RN documented in this encounter [facility] 04-01-2025 Telephone encounter Note Patient has contacted [facility] to transfer 2 of her medication to another pharmacy and they have not completed this. Pt asking if provider would transfer the scripts, please. Pended. Requested Prescriptions Pending Prescriptions Disp Refills losartan (COZAAR) 50 mg tablet 90 tablet Sig: Take 1 tablet by mouth once daily. metoprolol succinate ER (TOPROL XL) 100 mg 90 tablet Sig: Take 1 tablet by mouth once daily. Kami Mccain RN [facility] 04-01-2025 Miscellaneous Notes Patient has contacted [facility] to transfer 2 of her medication to another pharmacy and they have not completed this. Pt asking if provider would transfer the scripts, please. Pended. Requested Prescriptions Pending Prescriptions Disp Refills losartan (COZAAR) 50 mg tablet 90 tablet Sig: Take 1 tablet by mouth once daily. metoprolol succinate ER (TOPROL XL) 100 mg 90 tablet Sig: Take 1 tablet by mouth once daily. Kami Mccain RN documented in this encounter [facility] 03-18-2025 Telephone encounter Note Patient has been identified by name and date of : Yes Patient phones for refill(s): Requested Prescriptions Pending Prescriptions Disp Refills blood sugar diagnostic (BLOOD GLUCOSE TEST) test strip 300 strip 3 Sig: Test blood sugar(s) 3 times daily. Dx: Type 2 DM - Controlled E11.65 Insulin: Yes Date of last office visit in primary care: Visit date not found Date of next office visit in primary care: Visit date not found Please advise. Thank you. Charlotte Nava LPN. [facility] 03-18-2025 Miscellaneous Notes Patient has been identified by name and date of : Yes Patient phones for refill(s): Requested Prescriptions Pending Prescriptions Disp Refills blood sugar diagnostic (BLOOD GLUCOSE TEST) test strip 300 strip 3 Sig: Test blood sugar(s) 3 times daily. Dx: Type 2 DM - Controlled E11.65 Insulin: Yes Date of last office visit in primary care: Visit date not found Date of next office visit in primary care: Visit date not found Please advise. Thank you. Charlotte Nava LPN. Prescription Refill Information The patient has been identified by name and date of : Yes Caregiver verified no other encounters exist for this prescription request: Yes Caregiver confirmed with patient/requestor that no other refills are due, in the near future, with this provider at this time: Yes The last office visit in the department: 02/19/25 Does the patient have a future office visit with this provider/department: Yes Requested Prescriptions Pending Prescriptions Disp Refills blood sugar diagnostic (BLOOD GLUCOSE TEST) test strip 300 strip 3 Sig: Test blood sugar(s) 3 times daily. Dx: Type 2 DM - Controlled E11.65 Insulin: Milena Lam March 18, 2025 10:24 AM documented in this encounter [facility] 03-18-2025 Telephone encounter Note Prescription Refill Information The patient has been identified by name and date of : Yes Caregiver verified no other encounters exist for this prescription request: Yes Caregiver confirmed with patient/requestor that no other refills are due, in the near future, with this provider at this time: Yes The last office visit in the department: 02/19/25 Does the patient have a future office visit with this provider/department: Yes Requested Prescriptions Pending Prescriptions Disp Refills blood sugar diagnostic (BLOOD GLUCOSE TEST) test strip 300 strip 3 Sig: Test blood sugar(s) 3 times daily. Dx: Type 2 DM - Controlled E11.65 Insulin: Yes Melodie Lam March 18, 2025 10:24 AM [facility] 03-02-2025 Progress note Formatting of t his note might be different from the original. BNP is trending upward. BUN is high, has previously declined nephrology OV. Creatinine Date Value Ref Range Status 09/12/2024 2.20 (H) 0.58 - 0.96 mg* Final 05/09/2024 2.13 (H) 0.58 - 0.96 mg* Final 01/10/2024 2.10 (H) 0.58 - 0.96 mg* Final 12/24/2023 2.09 (H) 0.58 - 0.96 mg* Final [facility] 03-02-2025 Miscellaneous Notes BNP is trending upward. BUN is high, has previously declined nephrology OV. Creatinine Date Value Ref Range Status 09/12/2024 2.20 (H) 0.58 - 0.96 mg* Final 05/09/2024 2.13 (H) 0.58 - 0.96 mg* Final 01/10/2024 2.10 (H) 0.58 - 0.96 mg* Final 12/24/2023 2.09 (H) 0.58 - 0.96 mg* Final documented in this encounter [facility] 02-27-2025 Progress note Formatting of t his note might be different from the original. Resolution of interstitial edema and small left pleural effusion [facility] 02-27-2025 Miscellaneous Notes Resolution of interstitial edema and small left pleural effusion documented in this encounter [facility] 02-27-2025 Note HNO ID: [id number] Author: LINDA BOSTON RT(R) Service: ? Author Type: Technologist Type: Progress Notes Filed: 02/27/2025 10:14 Note Text: Radiology Service Progress Note PATIENT NAME: Concha Woodward DATE OF SERVICE: February 27, 2025 TIME: 10:13 AM PATIENT IDENTITY VERIFICATION COMPLETED USING TWO (2) IDENTIFIERS: Name and Date of confirmed by patient verbally. FALL SCREENING: Has the patient had 2 falls in the last year or 1 fall with injury or currently using an Ambulatory Assistive Device (Walker, Cane, Wheelchair, Crutches, etc.)? No PATIENT GENDER DATA: Assigned female at . status: : No status: NO. PATIENT RELEVANT IMPLANT DATA REVIEWED: Not Applicable PATIENT PRESENTS WITH AN IMPLANTABLE OR ATTACHED WATER SERVICE DISPATCHER: No RADIOLOGY DEPARTMENT: General X-ray: Exam(s) Completed: Chest X-Ray PERIPHERAL IV DATA: Not applicable SIGNED BY: RT Clif(R) February 27, 2025 10:13 AM [facility] 02-20-2025 Telephone encounter Note Patient notified of results, verbalized understanding of instructions given and has f/u XR ordered to complete in a week which she plans to do as well as her blood work. Piedad Henderson MA [facility] 02-20-2025 Miscellaneous Notes Patient notified of results, verbalized understanding of instructions given and has f/u XR ordered to complete in a week which she plans to do as well as her blood work. Piedad Henderson MA COVID-19, influenza A, and influenza B PCR test are negative. Continue supportive therapies as discussed during visit. Follow-up with PCP if symptoms are not improving. Reese Ga APRN.CNP documented in this encounter [facility] 02-20-2025 Telephone encounter Note COVID-19, influenza A, and influenza B PCR test are negative. Continue supportive therapies as discussed during visit. Follow-up with PCP if symptoms are not improving. Reese Ga APRN.CNP [facility] Work Phone: 02-19-2025 Instructions Ishmael Davis APRN.CNS - 02/19/2025 12:29 PM EDT Arrange to have a chest x-ray done in about one week to confirm that any fluid in your lungs has cleared. Check in at the x-ray facility when you arrive (no appointment is needed). Aim to drink about 64 ounces of fluids each day. This will help support your kidney function and overall recovery. A prescription for cough and nausea medicine has been printed out for you. Use it if you develop those symptoms again. In May, complete your lab work (including kidney function cholesterol and BNP levels). Visit the lab (for example, the one on [address]) in the morning; you will need to fast (only water, tea, or coffee without sugar/cream is allowed) until your blood is drawn. If your symptoms worsen or persist, or if new concerns arise, please contact our office. documented in this encounter [facility] 02-19-2025 Note HNO ID: [id number] Author: ISHMAEL DAVIS APRN.BRICK CLEANER Service: ? Author Type: Nurse Specialist Type: Progress Notes Filed: 02/19/2025 12:40 Note Text: SUBJECTIVE: LDL Cholesterol due on 01/09/2025 Dilated Retinal Exam due on 03/17/2025 PK Woodward is a 89 year old female. PMH significant for ACTIVE PROBLEM LIST Hypertension Goal Bp (Blood Pressure) < 150/90 Pure Hypercholesterolemia Osteopenia History of Gout Type 2 Diabetes Mellitus With Stage 3b Chronic Kidney Disease, With Long-Term Current Use of Insulin (Hcc) History of Cva (Cerebrovascular Accident) Hyperuricemia Diarrhea, Unspecified S/P Cabg X 4 Stage 3b Chronic Kidney Disease (Hcc) Hypertensive Kidney Disease With Stage 3b Chronic Kidney Disease (Hcc) Obesity, Class I, Bmi 30-34.9 Heart Failure With Reduced Ejection Fraction (Hcc) Chronic Renal Disease, Stage IV (Hcc) Paroxysmal Atrial Fibrillation With Rapid Ventricular Response ([facility]) Presents today for routine follow-up visit. She presented to urgent care earlier this morning with nausea and vomiting headache body aches and wheezing which started today. Chest x-ray completed and showed mild interstitial edema with trace pleural effusions. COVID and flu testing was completed. Results pending. History of CAD s/p CAB, followed by [facility]. Currently without symptomatic complaints. Recent cardiology visit 01/2025. Stopped Plavix. 6 month follow up. Labs [facility] 01/2025, BUN 42 Cr. 1.95 e GFR 24 Echocardiogram completed 01/2025 and showed ejection fraction of 50%. See scanned documents.Stage II diastolic dysfunction. No significant valvular abnormalities. ROS Constitutional: (+) fatigue Cardiovascular: (-) chest pain, (-) palpitations Respiratory: (-) shortness of breath, (-) cough Gastrointestinal: (-) vomiting Hemoglobin A1C (%) Date Value 09/12/2024 7.7 05/09/2024 7.2 09/15/2021 7.4 05/23/2021 7.5 ) Last 14 Encounter BP Readings: Date: BP: 02/19/2025 163/69 02/19/2025 159/70 01/16/2025 150/80 09/12/2024 150/67 05/12/2024 147/68 01/11/2024 128/68 09/20/2023 145/68[bp average[ 09/05/2023 156/68 08/23/2023 160/77[bp average[ 08/14/2023 150/80 07/21/2023 152/94 01/09/2023 122/72 01/01/2023 148/71 06/25/2022 142/78 Hyperlipidemia. Ms. Woodward reports doing well on current therapy Review of Systems Constitutional: Negative. Respiratory: Negative. Cardiovascular: Negative. Endocrine: Negative. Objective BP 163/69 Pulse 80 Resp 16 Wt 76.8 kg (169 lb 5 oz) BMI 31.36 kg/m? Physical Exam Vitals and nursing note reviewed. Constitutional: Appearance: Normal appearance. HENT: Head: Normocephalic and atraumatic. Eyes: Conjunctiva/sclera: Conjunctivae normal. Neck: Thyroid: No thyromegaly. Vascular: Normal carotid pulses. No JVD. Cardiovascular: Rate and Rhythm: Normal rate and regular rhythm. Pulses: Normal pulses. Carotid pulses are 2+ on the right side and 2+ on the left side. Radial pulses are 2+ on the right side and 2+ on the left side. Heart sounds: Normal heart sounds. Pulmonary: Effort: Pulmonary effort is normal. Breath sounds: Normal breath sounds. Abdominal: General: Bowel sounds are normal. Palpations: Abdomen is soft. Musculoskeletal: Right lower leg: No edema. Left lower leg: No edema. Skin: General: Skin is warm and dry. Neurological: General: No focal deficit present. Mental Status: She is alert and oriented to person, place, and time. ALLERGIES Allergen Reactions Bactrim [Sulfametho* Vomiting Codeine Vomiting Farxiga [Dapagliflo* GI Upset Prednisone Vomiting Statins [Statins-Hm* Intolerance Ultram [Tramadol Hc* Vomiting MEDICATIONS amLODIPine (NORVASC) 10 mg tablet Take 1 tablet by mouth once daily. Dose change, take 1 daily allopurinol (ZYLOPRIM) 100 mg tablet Take 1 tablet by mouth once daily. rosuvastatin (CRESTOR) 5 mg tablet Take 1 tablet by mouth once daily. As directed insulin aspart U-100 (NOVOLOG) 100 unit/mL (3 mL) inject 8 units subcutaneously once daily WITH BREAKFAST AND 3 UNITS DAILY WITH LUNCH AND 6 UNITS DAILY WITH DINNER insulin glargine-yfgn (SEMGLEE) 100 unit/mL (3 mL) insulin pen Inject 14 Units subcutaneously daily at bedtime. losartan (COZAAR) 50 mg tablet Take 1 tablet by mouth once daily. carbamide peroxide (DEBROX) 6.5 % otic solution Use 5 Drops in both ears two times a day. blood sugar diagnostic (BLOOD GLUCOSE TEST) test strip Test blood sugar(s) 3 times daily. Dx: Type 2 DM - Controlled E11.65 Insulin: Yes Blood-Glucose Meter (TRUE METRIX GLUCOSE METER) 1 Kit three times a day. testing 3 times daily DX E11.65 Insulin Yes lancets (UNILET LANCETS) 30 gauge testing glucose 3 times daily Insulin Yes metoprolol succinate ER (TOPROL XL) 100 mg Take 1 tablet by mouth once daily. Insulin [place], Disposable, (BD ULTRA-FINE JOHN PEN NEEDLE) 32 gauge x Use one needle for each dose. 1x/ (more content not included)... [facility] 02-19-2025 History of Present illness Narrative SUBJECTIVE: LDL Cholesterol due on 01/09/2025 Dilated Retinal Exam due on 03/17/2025 HPI Concha Woodward is a 89 year old female. PMH significant for ACTIVE PROBLEM LIST Hypertension Goal Bp (Blood Pressure) < 150/90 Pure Hypercholesterolemia Osteopenia History of Gout Type 2 Diabetes Mellitus With Stage 3b Chronic Kidney Disease, With Long-Term Current Use of Insulin (Hcc) History of Cva (Cerebrovascular Accident) Hyperuricemia Diarrhea, Unspecified S/P Cabg X 4 Stage 3b Chronic Kidney Disease (Hcc) Hypertensive Kidney Disease With Stage 3b Chronic Kidney Disease (Hcc) Obesity, Class I, Bmi 30-34.9 Heart Failure With Reduced Ejection Fraction (Hcc) Chronic Renal Disease, Stage IV (Hcc) Paroxysmal Atrial Fibrillation With Rapid Ventricular Response ([facility]) Presents today for routine follow-up visit. She presented to urgent care earlier this morning with nausea and vomiting headache body aches and wheezing which started today. Chest x-ray completed and showed mild interstitial edema with trace pleural effusions. COVID and flu testing was completed. Results pending. History of CAD s/p CAB, followed by [facility]. Currently without symptomatic complaints. Recent cardiology visit 01/2025. Stopped Plavix. 6 month follow up. Labs [facility] 01/2025, BUN 42 Cr. 1.95 e GFR 24 Echocardiogram completed 01/2025 and showed ejection fraction of 50%. See scanned documents.Stage II diastolic dysfunction. No significant valvular abnormalities. ROS Constitutional: (+) fatigue Cardiovascular: (-) chest pain, (-) palpitations Respiratory: (-) shortness of breath, (-) cough Gastrointestinal: (-) vomiting Hemoglobin A1C (%) Date Value 09/12/2024 7.7 05/09/2024 7.2 09/15/2021 7.4 05/23/2021 7.5 ) Last 14 Encounter BP Readings: Date: BP: 02/19/2025 163/69 02/19/2025 159/70 01/16/2025 150/80 09/12/2024 150/67 05/12/2024 147/68 01/11/2024 128/68 09/20/2023 145/68[bp average[ 09/05/2023 156/68 08/23/2023 160/77[bp average[ 08/14/2023 150/80 07/21/2023 152/94 01/09/2023 122/72 01/01/2023 148/71 06/25/2022 142/78 Hyperlipidemia. Ms. Woodward reports doing well on current therapy Review of Systems Constitutional: Negative. Respiratory: Negative. Cardiovascular: Negative. Endocrine: Negative. Objective BP 163/69 Pulse 80 Resp 16 Wt 76.8 kg (169 lb 5 oz) BMI 31.36 kg/m Physical Exam Vitals and nursing note reviewed. Constitutional: Appearance: Normal appearance. HENT: Head: Normocephalic and atraumatic. Eyes: Conjunctiva/sclera: Conjunctivae normal. Neck: Thyroid: No thyromegaly. Vascular: Normal carotid pulses. No JVD. Cardiovascular: Rate and Rhythm: Normal rate and regular rhythm. Pulses: Normal pulses. Carotid pulses are 2+ on the right side and 2+ on the left side. Radial pulses are 2+ on the right side and 2+ on the left side. Heart sounds: Normal heart sounds. Pulmonary: Effort: Pulmonary effort is normal. Breath sounds: Normal breath sounds. Abdominal: General: Bowel sounds are normal. Palpations: Abdomen is soft. Musculoskeletal: Right lower leg: No edema. Left lower leg: No edema. Skin: General: Skin is warm and dry. Neurological: General: No focal deficit present. Mental Status: She is alert and oriented to person, place, and time. ALLERGIES Allergen Reactions Bactrim [Sulfametho* Vomiting Codeine Vomiting Farxiga [Dapagliflo* GI Upset Prednisone Vomiting Statins [Statins-Hm* Intolerance Ultram [Tramadol Hc* Vomiting MEDICATIONS amLODIPine (NORVASC) 10 mg tablet Take 1 tablet by mouth once daily. Dose change, take 1 daily allopurinol (ZYLOPRIM) 100 mg tablet Take 1 tablet by mouth once daily. rosuvastatin (CRESTOR) 5 mg tablet Take 1 tablet by mouth once daily. As directed insulin aspart U-100 (NOVOLOG) 100 unit/mL (3 mL) inject 8 units subcutaneously once daily WITH BREAKFAST AND 3 UNITS DAILY WITH LUNCH AND 6 UNITS DAILY WITH DINNER insulin glargine-yfgn (SEMGLEE) 100 unit/mL (3 mL) insulin pen Inject 14 Units subcutaneously daily at bedtime. losartan (COZAAR) 50 mg tablet Take 1 tablet by mouth once daily. carbamide peroxide (DEBROX) 6.5 % otic solution Use 5 Drops in both ears two times a day. blood sugar diagnostic (BLOOD GLUCOSE TEST) test strip Test blood sugar(s) 3 times daily. Dx: Type 2 DM - Controlled E11.65 Insulin: Yes Blood-Glucose Meter (TRUE METRIX GLUCOSE METER) 1 Kit three times a day. testing 3 times daily DX E11.65 Insulin Yes lancets (UNILET LANCETS) 30 gauge testing glucose 3 times daily Insulin Yes metoprolol succinate ER (TOPROL XL) 100 mg Take 1 tablet by mouth once daily. Insulin [place], Disposable, (BD ULTRA-FINE JOHN PEN NEEDLE) 32 gauge x Use one needle for each dose. 1x/day. Cholecalciferol, Vitamin D3, 25 mcg (1,000 unit) cap Take 1 capsule by mouth once daily. (1000 to 2000 IU daily fine) aspirin 81 mg chewable tablet Take 1 tablet by mouth once daily. white petrolatum-mineral oil (SYSTANE NIGHTTIME) 94-3 % ophthalmic ointment Use 1 application in both eyes daily at bedtime. RESTASIS 0.05 % ophthalmic emulsion Use 1 Drop in both eyes twice daily. calcium carbonate 600 mg-cholecalciferol 400 units 600 mg-10 mcg (400 unit) tab Take 1 tablet by mouth once daily. albuterol HFA (PROVENTIL HFA) 90 mcg/actuation inhaler Inhale 1-2 puffs as instructed four times a day as needed for wheezing/shortness of breath. ondansetron orally disintegrating (ZOFRAN ODT) 4 mg disintegrating tablet Take 1 tablet by mouth every 6 hours as needed. benzonatate (TESSALON PERLE) 100 mg capsule Take 1-2 capsules by mouth three times a day as needed. 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 Ortiz Stroke (cerebrum) ([facility]) 2013 Type II or unspecified type diabetes mellitus without mention of complication, uncontrolled Unspecified cardiovascular disease Unspecified essential hypertension Urgency of urination 2008 Social History Tobacco Use Smoking status: Never Smokeless tobacco: Never Vaping Use Vaping status: Never Used Substance Use Topics Alcohol use: No Drug use: No 1. Pleural effusion (J90) - Likely secondary to recent illness and CHF. - Ordered follow-up chest X-ray in one week to assess resolution. - Advised to increase fluid intake to approximately 64 ounces daily to improve hydration status / kidney function. - Provided prescriptions for cough and nausea medications to be used PRN. 2. Chronic heart failure with preserved ejection fraction (HCC) (I50.32) - Recent cardiology evaluation with no changes to current management other than Plavix was discontinued. - [facility] Echocardiogram showed near normal systolic function with stage 2 diastolic dysfunction, no significant valvular problems. - No current edema or dyspnea on examination. - Scheduled follow-up labs in May to include BNP levels. - To continue current management and follow-up with cardiology in six months. 3. Type 2 diabetes mellitus with stage 3b chronic kidney disease, with long-term current use of insulin (HCC) (E11.22) - Recent labs show slight improvement in renal function, but still suboptimal. - Advised to maintain adequate hydration to support renal function. - Scheduled follow-up labs in May to monitor - Continue current insulin regimen. 4. Hyperlipidemia, unspecified hyperlipidemia type (E78.5) - No recent lipid panel performed. - Ordered fasting lipid panel to be done in May. - Continue current lipid-lowering therapy. Medical Decision Making: Problems: Low: Acute, uncomplicated illness or injury Moderate: 2+ stable chronic illnesses Risk: Moderate: Drug management Medical Decision Making Level: 4 - Moderate documented in this encounter [facility] 02-19-2025 Note SARS-COV-2 (AGENT OF COVID-19) RNA: Not detected INFLUENZA A RNA: Not detected INFLUENZA B RNA: Not detected RESPIRATORY SYNCYTIAL VIRUS (RSV) RNA: Not detected [facility] Comment on above: Performed By: #### [id number] #### [facility] CLIA [id number] [address] [place] [address] OF [facility] 02-19-2025 History of Present illness Narrative Radiology Service Progress Note PATIENT NAME: Concha Woodward DATE OF SERVICE: February 19, 2025 TIME: 9:21 AM PATIENT IDENTITY VERIFICATION COMPLETED USING TWO (2) IDENTIFIERS: Name and Date of confirmed by patient verbally. FALL SCREENING: Has the patient had 2 falls in the last year or 1 fall with injury or currently using an Ambulatory Assistive Device (Walker, Cane, Wheelchair, Crutches, etc.)? No PATIENT GENDER DATA: Assigned female at . status: : No status: NO. PATIENT RELEVANT IMPLANT DATA REVIEWED: Not Applicable PATIENT PRESENTS WITH AN IMPLANTABLE OR ATTACHED WATER SERVICE DISPATCHER: No RADIOLOGY DEPARTMENT: General X-ray: Exam(s) Completed: Chest X-Ray PERIPHERAL IV DATA: Not applicable SIGNED BY: RT Dennis(R) February 19, 2025 9:21 AM documented in this encounter [facility] 02-19-2025 Note HNO ID: [id number] Author: GREGORIO CALDWELL RT(R) Service: Radiology Author Type: Technologist Type: Progress Notes Filed: 02/19/2025 09:31 Note Text: Radiology Service Progress Note PATIENT NAME: Concha Woodward DATE OF SERVICE: February 19, 2025 TIME: 9:21 AM PATIENT IDENTITY VERIFICATION COMPLETED USING TWO (2) IDENTIFIERS: Name and Date of confirmed by patient verbally. FALL SCREENING: Has the patient had 2 falls in the last year or 1 fall with injury or currently using an Ambulatory Assistive Device (Walker, Cane, Wheelchair, Crutches, etc.)? No PATIENT GENDER DATA: Assigned female at . status: : No status: NO. PATIENT RELEVANT IMPLANT DATA REVIEWED: Not Applicable PATIENT PRESENTS WITH AN IMPLANTABLE OR ATTACHED WATER SERVICE DISPATCHER: No RADIOLOGY DEPARTMENT: General X-ray: Exam(s) Completed: Chest X-Ray PERIPHERAL IV DATA: Not applicable SIGNED BY: RT Dennis(Ever) February 19, 2025 9:21 AM [facility] 02-19-2025 Note HNO ID: [id number] Author: CARIDAD ANGLIN APRN.EVENTS ASSISTANT Service: ? Author Type: Nurse Practitioner Type: Progress Notes Filed: 02/19/2025 10:02 Note Text: [facility] Subjective Concha Woodward is a 89 year old female. Patient presents with: Nausea AND Vomiting: Wheezing x this AM 89 year old female with PMH CHF, HTN, afib, DM, CKD presents for illness Acute onset this morning +wheezing noted (Denies presently) +N/V with taking her medicines think that I just got sick from the medicines Denies another episode +headache +body aches Denies cough Denies abdominal pain Denies dyspnea Denies CP Denies weight gain Accompanied by son in law The history is provided by the patient. No speech language pathologist travel was used. Wheezing This is a new problem. The current episode started today. The problem has been resolved. Associated symptoms include headaches. Pertinent negatives include no abdominal pain, chest pain, chills, coryza, coughing, diarrhea, ear pain, fever, hemoptysis, neck pain, rash, rhinorrhea, shortness of breath, sore throat, sputum production, swollen glands or vomiting. Nothing aggravates the symptoms. She has tried nothing for the symptoms. The treatment provided no relief. Her past medical history is significant for chronic lung disease and heart failure. 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 Ortiz Stroke (cerebrum) ([facility]) 2013 Type II or unspecified type diabetes mellitus without mention of complication, uncontrolled Unspecified cardiovascular disease Unspecified essential hypertension Urgency of urination 2008 PAST SURGICAL HISTORY Procedure Laterality Date ANGIOPLASTY 1988 CABG (3) VEIN GRAFTS AND ARTERIAL GRAFT(S) 01/09/2020 @ [facility] by Dr. Ortiz COLONOSCOPY FLX DX W/COLLJ SPEC WHEN PFRMD 08/29/07 LAPAROSCOPY SURG CHOLECYSTECTOMY Cholecystectomy, lap LEFT HEART CATH,CUTDOWN 1991 PAST SURGICAL HISTORY OF Tubal ALLERGIES Bactrim [Sulfamethoxazole-Trimethoprim], Codeine, Farxiga [Dapagliflozin], Prednisone, Statins [Cuvxsox-Gqk-Svo Reductase Inhibitors], and Ultram [Tramadol Hcl] MEDICATIONS amLODIPine (NORVASC) 10 mg tablet Take 1 tablet by mouth once daily. Dose change, take 1 daily allopurinol (ZYLOPRIM) 100 mg tablet Take 1 tablet by mouth once daily. rosuvastatin (CRESTOR) 5 mg tablet Take 1 tablet by mouth once daily. As directed insulin aspart U-100 (NOVOLOG) 100 unit/mL (3 mL) inject 8 units subcutaneously once daily WITH BREAKFAST AND 3 UNITS DAILY WITH LUNCH AND 6 UNITS DAILY WITH DINNER insulin glargine-yfgn (SEMGLEE) 100 unit/mL (3 mL) insulin pen Inject 14 Units subcutaneously daily at bedtime. losartan (COZAAR) 50 mg tablet Take 1 tablet by mouth once daily. carbamide peroxide (DEBROX) 6.5 % otic solution Use 5 Drops in both ears two times a day. blood sugar diagnostic (BLOOD GLUCOSE TEST) test strip Test blood sugar(s) 3 times daily. Dx: Type 2 DM - Controlled E11.65 Insulin: Yes Blood-Glucose Meter (TRUE METRIX GLUCOSE METER) 1 Kit three times a day. testing 3 times daily DX E11.65 Insulin Yes lancets (UNILET LANCETS) 30 gauge testing glucose 3 times daily Insulin Yes metoprolol succinate ER (TOPROL XL) 100 mg Take 1 tablet by mouth once daily. Insulin [place], Disposable, (BD ULTRA-FINE JOHN PEN NEEDLE) 32 gauge x Use one needle for each dose. 1x/day. Cholecalciferol, Vitamin D3, 25 mcg (1,000 unit) cap Take 1 capsule by mouth once daily. (1000 to 2000 IU daily fine) aspirin 81 mg chewable tablet Take 1 tablet by mouth once daily. white petrolatum-mineral oil (SYSTANE NIGHTTIME) 94-3 % ophthalmic ointment Use 1 application in both eyes daily at bedtime. RESTASIS 0.05 % ophthalmic emulsion Use 1 Drop in both eyes twice daily. calcium carbonate 600 mg-cholecalciferol 400 units 600 mg-10 mcg (400 unit) tab Take 1 tablet by mouth once daily. FAMILY HISTORY Problem Relation Age of Onset Heart Mother mi Heart Father heart disease Cancer Brother Mouth (non smoker) Diabetes Maternal Uncle Social History Tobacco Use Smoking status: Never Smokeless tobacco: Never Vaping Use V (more content not included)... [facility] 02-19-2025 History of Present illness Narrative [facility] Subjective Concha Woodward is a 89 year old female. Patient presents with: Nausea & Vomiting: Wheezing x this AM 89 year old female with PMH CHF, HTN, afib, DM, CKD presents for illness Acute onset this morning +wheezing noted (Denies presently) +N/V with taking her medicines think that I just got sick from the medicines Denies another episode +headache +body aches Denies cough Denies abdominal pain Denies dyspnea Denies CP Denies weight gain Accompanied by son in law The history is provided by the patient. No speech language pathologist travel was used. Wheezing This is a new problem. The current episode started today. The problem has been resolved. Associated symptoms include headaches. Pertinent negatives include no abdominal pain, chest pain, chills, coryza, coughing, diarrhea, ear pain, fever, hemoptysis, neck pain, rash, rhinorrhea, shortness of breath, sore throat, sputum production, swollen glands or vomiting. Nothing aggravates the symptoms. She has tried nothing for the symptoms. The treatment provided no relief. Her past medical history is significant for chronic lung disease and heart failure. 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 Ortiz Stroke (cerebrum) ([facility]) 2013 Type II or unspecified type diabetes mellitus without mention of complication, uncontrolled Unspecified cardiovascular disease Unspecified essential hypertension Urgency of urination 2008 PAST SURGICAL HISTORY Procedure Laterality Date ANGIOPLASTY 1988 CABG (3) VEIN GRAFTS & ARTERIAL GRAFT(S) 01/09/2020 @ [facility] by Dr. Ortzi COLONOSCOPY FLX DX W/COLLJ SPEC WHEN PFRMD 08/29/07 LAPAROSCOPY SURG CHOLECYSTECTOMY Cholecystectomy, lap LEFT HEART CATH,CUTDOWN 1991 PAST SURGICAL HISTORY OF Tubal ALLERGIES Bactrim [Sulfamethoxazole-Trimethoprim], Codeine, Farxiga [Dapagliflozin], Prednisone, Statins [Wanvqjl-Ylz-Tmv Reductase Inhibitors], and Ultram [Tramadol Hcl] MEDICATIONS amLODIPine (NORVASC) 10 mg tablet Take 1 tablet by mouth once daily. Dose change, take 1 daily allopurinol (ZYLOPRIM) 100 mg tablet Take 1 tablet by mouth once daily. rosuvastatin (CRESTOR) 5 mg tablet Take 1 tablet by mouth once daily. As directed insulin aspart U-100 (NOVOLOG) 100 unit/mL (3 mL) inject 8 units subcutaneously once daily WITH BREAKFAST AND 3 UNITS DAILY WITH LUNCH AND 6 UNITS DAILY WITH DINNER insulin glargine-yfgn (SEMGLEE) 100 unit/mL (3 mL) insulin pen Inject 14 Units subcutaneously daily at bedtime. losartan (COZAAR) 50 mg tablet Take 1 tablet by mouth once daily. carbamide peroxide (DEBROX) 6.5 % otic solution Use 5 Drops in both ears two times a day. blood sugar diagnostic (BLOOD GLUCOSE TEST) test strip Test blood sugar(s) 3 times daily. Dx: Type 2 DM - Controlled E11.65 Insulin: Yes Blood-Glucose Meter (TRUE METRIX GLUCOSE METER) 1 Kit three times a day. testing 3 times daily DX E11.65 Insulin Yes lancets (UNILET LANCETS) 30 gauge testing glucose 3 times daily Insulin Yes metoprolol succinate ER (TOPROL XL) 100 mg Take 1 tablet by mouth once daily. Insulin [place], Disposable, (BD ULTRA-FINE JOHN PEN NEEDLE) 32 gauge x 5/32 Use one needle for each dose. 1x/day. Cholecalciferol, Vitamin D3, 25 mcg (1,000 unit) cap Take 1 capsule by mouth once daily. (1000 to 2000 IU daily fine) aspirin 81 mg chewable tablet Take 1 tablet by mouth once daily. white petrolatum-mineral oil (SYSTANE NIGHTTIME) 94-3 % ophthalmic ointment Use 1 application in both eyes daily at bedtime. RESTASIS 0.05 % ophthalmic emulsion Use 1 Drop in both eyes twice daily. calcium carbonate 600 mg-cholecalciferol 400 units 600 mg-10 mcg (400 unit) tab Take 1 tablet by mouth once daily. FAMILY HISTORY Problem Relation Age of Onset Heart Mother mi Heart Father heart disease Cancer Brother Mouth (non smoker) Diabetes Maternal Uncle Social History Tobacco Use Smoking status: Never Smokeless tobacco: Never Vaping Use Vaping status: Never Used Substance Use Topics Alcohol use: No Drug use: No Review of Systems Constitutional: Negative for chills and fever. HENT: Negative for congestion, dental problem, ear pain, rhinorrhea and sore throat. Eyes: Negative for pain, discharge, redness and itching. Respiratory: Positive for wheezing. Negative for cough, hemoptysis, sputum production and shortness of breath. Cardiovascular: Negative for chest pain. Gastrointestinal: Negative for abdominal pain, diarrhea and vomiting. Musculoskeletal: Positive for myalgias. Negative for arthralgias, back pain and neck pain. Skin: Negative for color change, pallor and rash. Allergic/Immunologic: Negative for environmental allergies, food allergies and immunocompromised state. Neurological: Positive for headaches. Negative for dizziness and facial asymmetry. Hematological: Negative for adenopathy. Does not bruise/bleed easily. Psychiatric/Behavioral: Negative for agitation and behavioral problems. Objective BP 159/70 Pulse 83 Temp 36.1 C (97 F) Resp 18 Wt 76.8 kg (169 lb 5 oz) SpO2 96% BMI 31.36 kg/m Physical Exam Vitals and nursing note reviewed. Constitutional: General: She is not in acute distress. Appearance: Normal appearance. She is normal weight. She is not ill-appearing, toxic-appearing or diaphoretic. Comments: Elderly, but non toxic HENT: Head: Normocephalic and atraumatic. Right Ear: Ear canal and external ear normal. Left Ear: Ear canal and external ear normal. Nose: Nose normal. No congestion or rhinorrhea. Mouth/Throat: Mouth: Mucous membranes are moist. Pharynx: No oropharyngeal exudate or posterior oropharyngeal erythema. Eyes: General: Right eye: No discharge. Left eye: No discharge. Extraocular Movements: Extraocular movements intact. Conjunctiva/sclera: Conjunctivae normal. Pupils: Pupils are equal, round, and reactive to light. Cardiovascular: Rate and Rhythm: Normal rate and regular rhythm. Pulses: Normal pulses. Heart sounds: Normal heart sounds. No murmur heard. No friction rub. Pulmonary: Effort: Pulmonary effort is normal. No respiratory distress. Breath sounds: Normal breath sounds. No stridor. No wheezing, rhonchi or rales. Comments: No flail chest Chest: Chest wall: No tenderness. Abdominal: General: Abdomen is flat. There is no distension. Palpations: Abdomen is soft. There is no mass. Tenderness: There is no abdominal tenderness. There is no right CVA tenderness, left CVA tenderness, guarding or rebound. Hernia: No hernia is present. Musculoskeletal: General: No swelling, tenderness, deformity or signs of injury. Normal range of motion. Cervical back: Normal range of motion and neck supple. No rigidity. Right lower leg: No edema. Left lower leg: No edema. Lymphadenopathy: Cervical: No cervical adenopathy. Skin: General: Skin is warm and dry. Coloration: Skin is not jaundiced or pale. Findings: No bruising, erythema, lesion or rash. Neurological: General: No focal deficit present. Mental Status: She is alert and oriented to person, place, and time. Cranial Nerves: No cranial nerve deficit. Sensory: No sensory deficit. Motor: No weakness. Coordination: Coordination normal. Gait: Gait normal. Psychiatric: Mood and Affect: Mood normal. Behavior: Behavior normal. Thought Content: Thought content normal. Judgment: Judgment normal. {ASSESSMENT/PLAN: ASSESSMENT/PLAN: 1. wheezing - ICD9: 786.2, ICD10: R05.1 (primary diagnosis) Acute onset today X 1 occurrence Denies now - XR CHEST 2V FRONTAL/LAT-IMPRESSION IMPRESSION: Findings most suggestive of mild interstitial edema with trace pleural effusions. - COVID & INFLUENZA A/B & RSV PCR, ROUTINE 2. Exposure to influenza - ICD9: V01.79, ICD10: Z20.828 + ill contacts - COVID & INFLUENZA A/B & RSV PCR, ROUTINE 3. Viral illness - ICD9: 079.99, ICD10: B34.9 - Discussed viral etiology and rationale for treatment. - Symptomatic treatment with prn analgesia - Supportive care with fluids and rest - The patient may also use warm salt water gargles, throat lozenges and/or OTC throat spray as needed and nasal saline gtts and suction prn. - Follow up in 3-5 days if symptoms persist or sooner if worsening of symptoms - COVID & INFLUENZA A/B & RSV PCR, ROUTINE 4. Edema, unspecified type - ICD9: 782.3, ICD10: R60.9 CXR IMPRESSION IMPRESSION: Findings most suggestive of mild interstitial edema with trace pleural effusions. Hemodynamically stable No red flags At this time continue current medications. Patient to follow up with PCP office , chart CC for scheduling and close follow up Caridad Anglin APRN.EVENTS ASSISTANT History and Record Review Clinical information obtained from an independent historian. History obtained from or confirmed by: family member. External record(s) reviewed: prior inpatient record and prior outpatient record. Differential Diagnoses - URI - respiratory failure is less likely for the following reason(s): H&P not suggestive and no evidence on imaging Contributing Factors Chronic conditions affecting care: diabetes and hypertension Disposition The patient was discharged. Procedures documented in this encounter [facility] 01-19-2025 Note HNO ID: [id number] Author: LYNN HOLLIDAY MA Service: ? Author Type: Outboard Motorboat Rigger Type: Progress Notes Filed: 01/19/2025 15:47 Note Text: POPULATION HEALTH NAVIGATION OUTREACH Action/FYI updated appointment note HCC CLOSURE Topic Due (Y or N) Comments Medicare Wellness PCP Follow up Colorectal Cancer Screening Controlling Blood Pressure A1C HCC Y Flu Vaccine Care Everywhere Reviewed MyChart Activation Updated Appointment Note Y Reason for Outreach Care Gap/HCC or Scheduling Wellness Visits Care Gaps due: N/A Patient Contacted: Unable or unnecessary to reach patient: HCC related Patient already scheduled Updated appointment notes Navigation Signature: Lynn Holliday MA January 19, 2025 8:10 AM [facility] 01-19-2025 History of Present illness Narrative POPULATION HEALTH NAVIGATION OUTREACH Action/FYI updated appointment note HCC CLOSURE Topic Due (Y or N) Comments Medicare Wellness PCP Follow up Colorectal Cancer Screening Controlling Blood Pressure A1C HCC Y Flu Vaccine Care Everywhere Reviewed MyChart Activation Updated Appointment Note Y Reason for Outreach Care Gap/HCC or Scheduling Wellness Visits Care Gaps due: N/A Patient Contacted: Unable or unnecessary to reach patient: HCC related Patient already scheduled Updated appointment notes Navigation Signature: Lynn Holliday MA January 19, 2025 8:10 AM documented in this encounter [facility] 01-19-2025 Note Patient Outreach (BELLA TNAV) CONCHA WOODWARD I ([id number]) 1935 F Date Time Provider Department 01/19/25 LYNN HOLLIDAY NETNAV During your visit today, we recorded the following information about you: Lynn Holliday MA 01/19/2025 3:47 PM Signed POPULATION HEALTH NAVIGATION OUTREACH Action/FYI updated appointment note HCC CLOSURE Topic Due (Y or N) Comments Medicare Wellness PCP Follow up Colorectal Cancer Screening Controlling Blood Pressure A1C HCC Y Flu Vaccine Care Everywhere Reviewed MyChart Activation Updated Appointment Note Y Reason for Outreach Care Gap/HCC or Scheduling Wellness Visits Care Gaps due: N/A Patient Contacted: Unable or unnecessary to reach patient: HCC related Patient already scheduled Updated appointment notes Navigation Signature: Lynn Holliday MA January 19, 2025 8:10 AM Allergies As of Date: 01/19/2025 Noted Allergy Reaction BACTRIM (SULFAMETHOXAZOLE-TRIMETH*06/10/20 08 11 - Vomiting CODEINE 08/31/2005 11 - Vomiting FARXIGA (DAPAGLIFLOZIN) 09/12/2024 8 - GI Upset PREDNISONE 09/05/2012 11 - Vomiting STATINS ([id number] REDUCTAS*05/25/2009 5 - Intolerance ULTRAM (TRAMADOL HCL) 01/17/2013 11 - Vomiting Date Reviewed: 01/16/2025 Reviewed by: Rama Zheng LPN - Fully Assessed Reason for Visit: Population Health Navigation Outreach [3910] Cmt: JOSE CONTRERAS PCSA Prescriptions as of 01/19/2025 - amLODIPine (NORVASC) 10 mg tablet Take 1 tablet by mouth once daily. Dose change, take 1 daily - allopurinol (ZYLOPRIM) 100 mg tablet Take 1 tablet by mouth once daily. - rosuvastatin (CRESTOR) 5 mg tablet Take 1 tablet by mouth once daily. As directed - insulin aspart U-100 (NOVOLOG) 100 unit/mL (3 mL) inject 8 units subcutaneously once daily WITH BREAKFAST AND 3 UNITS DAILY WITH LUNCH AND 6 UNITS DAILY WITH DINNER - insulin glargine-yfgn (SEMGLEE) 100 unit/mL (3 mL) insulin pen Inject 14 Units subcutaneously daily at bedtime. - losartan (COZAAR) 50 mg tablet Take 1 tablet by mouth once daily. - carbamide peroxide (DEBROX) 6.5 % otic solution Use 5 Drops in both ears two times a day. - blood sugar diagnostic (BLOOD GLUCOSE TEST) test strip Test blood sugar(s) 3 times daily. Dx: Type 2 DM - Controlled E11.65 Insulin: Yes - Blood-Glucose Meter (TRUE METRIX GLUCOSE METER) 1 Kit three times a day. testing 3 times daily DX E11.65 Insulin Yes - lancets (UNILET LANCETS) 30 gauge testing glucose 3 times daily Insulin Yes - metoprolol succinate ER (TOPROL XL) 100 mg Take 1 tablet by mouth once daily. - Insulin [place], Disposable, (BD ULTRA-FINE JOHN PEN NEEDLE) 32 gauge x Use one needle for each dose. 1x/day. - Cholecalciferol, Vitamin D3, 25 mcg (1,000 unit) cap Take 1 capsule by mouth once daily. (1000 to 2000 IU daily fine) - aspirin 81 mg chewable tablet Take 1 tablet by mouth once daily. - white petrolatum-mineral oil (SYSTANE NIGHTTIME) 94-3 % ophthalmic ointment Use 1 application in both eyes daily at bedtime. - RESTASIS 0.05 % ophthalmic emulsion Use 1 Drop in both eyes twice daily. - calcium carbonate 600 mg-cholecalciferol 400 units 600 mg-10 mcg (400 unit) tab Take 1 tablet by mouth once daily. Problem List As Of Date 01/19/2025 Noted Resolved Unspecified cardiovascular disease [I25.10] 03/21/2017 Hypertension goal BP (blood pressure) < 150/90 * DIABETES MELLITUS TYPE II UNCONTR UNCOMPL [IMO0* 12/26/2008 Pure hypercholesterolemia [E78.00] Osteopenia [M89.9, M94.9] 05/20/2007 ABDOMINAL PAIN UNSPEC SITE [R10.9] 08/06/2007 12/26/2008 Leiomyoma of uterus, unspecified [D25.9] 11/04/2007 03/21/2017 Mucous polyp of cervix [N84.1] 11/04/2007 02/22/2015 DIABETES TYPE II W NEURO MANIFESTATIONS [E11.49]12/24/2008 08/25/2014 Dermatophytosis of nail [B35.1] 12/24/2008 02/22/2015 Labyrinthine dysfunction, unspecified [H83.2X9] 12/26/2008 02/22/2015 Benign neoplasm of cerebral meninges (HCC) [D32*12/26/2008 02/11/2020 Urgency of urination [R39.15] 08/19/2009 02/22/2015 Postmenopausal atrophic vaginitis [N95.2] 08/19/2009 02/22/2015 Eustachian tube dysfunction [H69.90] 08/30/2009 02/22/2015 Diverticulosis [K57.90] 08/16/2012 02/22/2015 History of gout [Z87.39] 02/25/2013 Occipital neuralgia [M54.81] 02/25/2013 02/22/2015 Abnormal mammogram, unspecified [R92.8] 08/19/2013 02/22/2015 Hyperlipemia [E78.5] 10/20/2013 10/23/2015 Meningioma [D32.9] 10/20/2013 02/22/2015 Type 2 diabetes mellitus with stage 3b chronic *08/25/2014 History of CVA (cerebrovascular accident) [Z86.*08/25/2014 BCC (basal cell carcinoma), arm [C44.611] 05/25/2016 03/21/2017 Hyperuricemia [E79.0] 01/05/2018 Diarrhea, unspecified [R19.7] 04/28/2019 ACS (acute coronary syndrome) (HCC) [I24.9] 01/03/2020 02/11/2020 S/P CABG x 4 [Z95.1] 01/09/2020 Stage 3b chronic kidney disease (HCC) [N18.32] 01/20/2022 Hyperte (more content not included)... [facility] 01-16-2025 Instructions Anju Pearce MD - 01/16/2025 1:59 PM EDT - Continue taking all current medications as prescribed. - Refill prescriptions for amlodipine, allopurinol, Plavix, and rosuvastatin have been sent to the pharmacy. - Stay hydrated to support kidney function. - Schedule and complete lab tests in May, including cholesterol, vitamin D, uric acid, and a urine test to check for protein. Please fast for 8 hours before the cholesterol test. - Update your healthcare power of litigation attorney to include your daughter, Aristeo Saunders, as the second alternate. Bring a copy of the updated document to the clinic. - Keep your balance and avoid falls by standing up slowly and using support if needed. - Next eye doctor appointment is scheduled for next week. - You may be due for a new pneumonia vaccine in 2026, depending on updated guidelines. documented in this encounter [facility] 01-16-2025 Note HNO ID: [id number] Author: ANJU PEARCE MD Service: ? Author Type: Physician Type: Progress Notes Filed: 01/16/2025 14:02 Note Text: This note was created using Babybe. Subjective Concha Woodward is a 89 year old female. HISTORY Concha Woodward is a 89 year old lady here for yearly exam and follow up appointment. Has HCDPOA but the one on file needs updated. First surrogate decision maker is son, Miguel Pollard; second is daughter, Aristeo Saunders. Chelo is a 89-year-old female, with a history of DM, CKD stage 3, and HTN, presenting for follow-up after a recent hospitalization for influenza A. Chelo was hospitalized on 01/05 for influenza A after experiencing symptoms for 5 days, including chills, sweats, and worsening condition. She was prescribed Tamiflu by her daughter's physician colleague but discontinued it due to feeling worse. She reports significant fatigue and congestion, with a lot of coughing. She was advised to take Tylenol but did not receive any other medications for her symptoms. She denies emesis and expresses a strong aversion to vomiting. She reports difficulty maintaining hydration, stating, no matter how much I drink, it's never enough. She denies lightheadedness or dizziness when standing up but notes that she does not move as fast as she used to and is cautious to avoid falls. She uses a bed rail at home and has several things to assist with balance. She denies heavy smoking, alcohol consumption, or drug use. She reports getting up a couple of times at night to urinate and sometimes has difficulty returning to sleep. She denies any issues with appetite and is eating well. She has a support system of friends and family. She recently lost her of 67 years and is adjusting to life without him. She has two sisters and one brother, with her brother currently fighting mouth cancer. 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 Ortiz Stroke (cerebrum) ([facility]) 2013 Type II or unspecified type diabetes mellitus without mention of complication, uncontrolled Unspecified cardiovascular disease Unspecified essential hypertension Urgency of urination 2008 Current Outpatient Medications Medication Sig insulin aspart U-100 (NOVOLOG) 100 unit/mL (3 mL) inject 8 units subcutaneously once daily WITH BREAKFAST AND 3 UNITS DAILY WITH LUNCH AND 6 UNITS DAILY WITH DINNER insulin glargine-yfgn (SEMGLEE) 100 unit/mL (3 mL) insulin pen Inject 14 Units subcutaneously daily at bedtime. losartan (COZAAR) 50 mg tablet Take 1 tablet by mouth once daily. allopurinol (ZYLOPRIM) 100 mg tablet Take 1 tablet by mouth once daily. clopidogrel (PLAVIX) 75 mg tablet Take 1 tablet by mouth once daily. carbamide peroxide (DEBROX) 6.5 % otic solution Use 5 Drops in both ears two times a day. blood sugar diagnostic (BLOOD GLUCOSE TEST) test strip Test blood sugar(s) 3 times daily. Dx: Type 2 DM - Controlled E11.65 Insulin: Yes Blood-Glucose Meter (TRUE METRIX GLUCOSE METER) 1 Kit three times a day. testing 3 times daily DX E11.65 Insulin Yes lancets (UNILET LANCETS) 30 gauge testing glucose 3 times daily Insulin Yes amLODIPine (NORVASC) 10 mg tablet Take 1 tablet by mouth once daily. Dose change, take 1 daily metoprolol succinate ER (TOPROL XL) 100 mg Take 1 tablet by mouth once daily. rosuvastatin (CRESTOR) 5 mg tablet take 1 tablet by mouth once daily as directed Insulin [place], Disposable, (BD ULTRA-FINE JOHN PEN NEEDLE) 32 gauge x 5/32 Use one needle for each dose. 1x/day. Cholecalciferol, Vitamin D3, 25 mcg (1,000 unit) cap Take 1 capsule by mouth once daily. (1000 to 2000 IU daily fine) aspirin 81 mg chewable tablet Take 1 tablet by mouth once daily. white petrolatum-mineral oil (SYSTANE NIGHTTIME) 94-3 % ophthalmic ointment Use 1 application in both eyes daily at bedtime. RESTASIS 0.05 % ophthalmic emulsion Use 1 Drop in both eyes twice daily. calcium carbonate 600 mg-cholecalciferol 400 units 600 mg-10 mcg (400 unit) tab Take 1 tablet by mouth once daily. No current facility-administered medications for this visit. ALLERGIES Allergen Reactions Bactrim [Sulfametho* Vomiting Codeine Vomiti (more content not included)... [facility] 01-16-2025 History of Present illness Narrative This note was created using [employer] Partner[employer]. Subjective Concha Woodward is a 89 year old female. HISTORY Concha Woodward is a 89 year old lady here for yearly exam and follow up appointment. Has HCDPOA but the one on file needs updated. First surrogate decision maker is son, Miguel Pollard; second is daughter, Aristeo Saunders. Chelo is a 89-year-old female, with a history of DM, CKD stage 3, and HTN, presenting for follow-up after a recent hospitalization for influenza A. Chelo was hospitalized on 01/05 for influenza A after experiencing symptoms for 5 days, including chills, sweats, and worsening condition. She was prescribed Tamiflu by her daughter's physician colleague but discontinued it due to feeling worse. She reports significant fatigue and congestion, with a lot of coughing. She was advised to take Tylenol but did not receive any other medications for her symptoms. She denies emesis and expresses a strong aversion to vomiting. She reports difficulty maintaining hydration, stating, no matter how much I drink, it's never enough. She denies lightheadedness or dizziness when standing up but notes that she does not move as fast as she used to and is cautious to avoid falls. She uses a bed rail at home and has several things to assist with balance. She denies heavy smoking, alcohol consumption, or drug use. She reports getting up a couple of times at night to urinate and sometimes has difficulty returning to sleep. She denies any issues with appetite and is eating well. She has a support system of friends and family. She recently lost her of 67 years and is adjusting to life without him. She has two sisters and one brother, with her brother currently fighting mouth cancer. 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 Ortiz Stroke (cerebrum) ([facility]) 2014 Type II or unspecified type diabetes mellitus without mention of complication, uncontrolled Unspecified cardiovascular disease Unspecified essential hypertension Urgency of urination 2008 Current Outpatient Medications Medication Sig insulin aspart U-100 (NOVOLOG) 100 unit/mL (3 mL) inject 8 units subcutaneously once daily WITH BREAKFAST AND 3 UNITS DAILY WITH LUNCH AND 6 UNITS DAILY WITH DINNER insulin glargine-yfgn (SEMGLEE) 100 unit/mL (3 mL) insulin pen Inject 14 Units subcutaneously daily at bedtime. losartan (COZAAR) 50 mg tablet Take 1 tablet by mouth once daily. allopurinol (ZYLOPRIM) 100 mg tablet Take 1 tablet by mouth once daily. clopidogrel (PLAVIX) 75 mg tablet Take 1 tablet by mouth once daily. carbamide peroxide (DEBROX) 6.5 % otic solution Use 5 Drops in both ears two times a day. blood sugar diagnostic (BLOOD GLUCOSE TEST) test strip Test blood sugar(s) 3 times daily. Dx: Type 2 DM - Controlled E11.65 Insulin: Yes Blood-Glucose Meter (TRUE METRIX GLUCOSE METER) 1 Kit three times a day. testing 3 times daily DX E11.65 Insulin Yes lancets (UNILET LANCETS) 30 gauge testing glucose 3 times daily Insulin Yes amLODIPine (NORVASC) 10 mg tablet Take 1 tablet by mouth once daily. Dose change, take 1 daily metoprolol succinate ER (TOPROL XL) 100 mg Take 1 tablet by mouth once daily. rosuvastatin (CRESTOR) 5 mg tablet take 1 tablet by mouth once daily as directed Insulin [place], Disposable, (BD ULTRA-FINE JOHN PEN NEEDLE) 32 gauge x Use one needle for each dose. 1x/day. Cholecalciferol, Vitamin D3, 25 mcg (1,000 unit) cap Take 1 capsule by mouth once daily. (1000 to 2000 IU daily fine) aspirin 81 mg chewable tablet Take 1 tablet by mouth once daily. white petrolatum-mineral oil (SYSTANE NIGHTTIME) 94-3 % ophthalmic ointment Use 1 application in both eyes daily at bedtime. RESTASIS 0.05 % ophthalmic emulsion Use 1 Drop in both eyes twice daily. calcium carbonate 600 mg-cholecalciferol 400 units 600 mg-10 mcg (400 unit) tab Take 1 tablet by mouth once daily. No current facility-administered medications for this visit. ALLERGIES Allergen Reactions Bactrim [Sulfametho* Vomiting Codeine Vomiting Farxiga [Dapagliflo* GI Upset Prednisone Vomiting Statins [Statins-Hm* Intolerance Ultram [Tramadol Hc* Vomiting FAMILY HISTORY Problem Relation Age of Onset Heart Mother mi Heart Father heart disease Cancer Brother Mouth (non smoker) Diabetes Maternal Uncle Social History Tobacco Use Smoking status: Never Smokeless tobacco: Never Vaping Use Vaping status: Never Used Substance Use Topics Alcohol use: No Drug use: No Review of Systems Objective BP 150/80 Pulse 80 Temp 36.1 C (97 F) (Left Tympanic) Resp 16 Ht 156.5 cm (5' 1.61) Wt 73.8 kg (162 lb 11.2 oz) BMI 30.13 kg/m Last 5 Encounter Wt Readings: Date: Wt: 01/16/2025 73.8 kg (162 lb 11.2 oz) 09/12/2024 78 kg (171 lb 15.3 oz) 05/12/2024 78 kg (172 lb) 09/20/2023 77.6 kg (171 lb) 09/05/2023 78 kg (172 lb) No waist measurement recorded Estimated body mass index is 30.13 kg/m as calculated from the following: Height as of this encounter: 156.5 cm (5' 1.61). Weight as of this encounter: 73.8 kg (162 lb 11.2 oz). Last 5 Encounter BP Readings: Date: BP: 01/16/2025 150/80 09/12/2024 150/67 05/12/2024 147/68 01/11/2024 128/68 09/20/2023 145/68[bp average[ Physical Exam Vitals reviewed. Constitutional: Appearance: Normal appearance. She is well-developed. HENT: Head: Normocephalic and atraumatic. Right Ear: Tympanic membrane, ear canal and external ear normal. Left Ear: Tympanic membrane, ear canal and external ear normal. Nose: Nose normal. Mouth/Throat: Mouth: Mucous membranes are moist. Eyes: Conjunctiva/sclera: Conjunctivae normal. Pupils: Pupils are equal, round, and reactive to light. Neck: Thyroid: No thyromegaly. Vascular: No carotid bruit. Cardiovascular: Rate and Rhythm: Normal rate and regular rhythm. Pulses: Normal pulses. Dorsalis pedis pulses are 2+ on the right side and 2+ on the left side. Posterior tibial pulses are 2+ on the right side and 2+ on the left side. Heart sounds: Normal heart sounds. No murmur heard. No friction rub. No gallop. Pulmonary: Effort: Pulmonary effort is normal. Breath sounds: Normal breath sounds. Abdominal: General: Bowel sounds are normal. There is no distension. Palpations: Abdomen is soft. There is no mass. Tenderness: There is no abdominal tenderness. Musculoskeletal: General: No deformity. Normal range of motion. Right lower leg: No edema. Left lower leg: No edema. Feet: Right foot: Protective Sensation: 10 sites tested. 10 sites sensed. Skin integrity: Skin integrity normal. Left foot: Protective Sensation: 10 sites tested. 10 sites sensed. Skin integrity: Skin integrity normal. Comments: Just small callus MTP joint areas great toes medially Lymphadenopathy: Cervical: No cervical adenopathy. Skin: General: Skin is warm and dry. Coloration: Skin is not jaundiced or pale. Findings: No rash. Neurological: General: No focal deficit present. Mental Status: She is alert and oriented to person, place, and time. Cranial Nerves: No cranial nerve deficit. Sensory: No sensory deficit. Motor: No abnormal muscle tone. Coordination: Coordination normal. Deep Tendon Reflexes: Reflexes normal. Psychiatric: Attention and Perception: Attention and perception normal. Mood and Affect: Mood and affect normal. Speech: Speech normal. Behavior: Behavior normal. Thought Content: Thought content normal. Cognition and Memory: Cognition and memory normal. Judgment: Judgment normal. Last labs reviewed. Assessment and Plan # Type 2 diabetes mellitus with stage 3b chronic kidney disease, with long-term current use of insulin ([facility]) (E11.22) # Macroalbuminuric diabetic nephropathy ([facility]) (E11.21) - Recent hospitalization on January 05 for Influenza A; labs showed BUN 42 mg/dL, creatinine 1.95 mg/dL, glucose 197 mg/dL, and mild anemia with hemoglobin 11.6 g/dL and hematocrit 35.8%. - Chest X-ray negative for pneumonia. - Previous labs from September showed creatinine 2.2 mg/dL. - Continue current insulin regimen with Semglee and Novolog. - Ordered comprehensive metabolic panel, urine microalbumin, and HbA1c to be done in May prior to follow-up appointment. - Patient advised to maintain adequate hydration. - Performed diabetic foot exam; no abnormalities noted. # Hyperuricemia (E79.0) # Idiopathic gout of multiple sites, unspecified chronicity (M10.09) - Continue allopurinol; refilled prescription. - Ordered uric acid level to be checked in May. # Vitamin D deficiency (E55.9) - Ordered vitamin D level to be checked in May. # Pure hypercholesterolemia (E78.00) # Mixed hyperlipidemia (E78.2) - Continue rosuvastatin daily; refilled prescription. - Ordered lipid panel to be done in May; patient instructed to fast for 8 hours prior to the test. # Hypertension goal BP (blood pressure) < 150/90 (I10) - Blood pressure readings in the office range from 120s to 150s. - Continue amlodipine and metoprolol; refilled prescriptions. - Advised patient on the importance of monitoring blood pressure. 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 # Mild anemia (D64.9) - Recent hemoglobin 11.6 g/dL and hematocrit 35.8%. - Monitor with upcoming labs in May. Anju Pearce MD documented in this encounter [facility] 01-07-2025 Telephone encounter Note Per pharmacy, Patient is asking for a pen. Charlotte Nava LPN [facility] 01-07-2025 Miscellaneous Notes Per pharmacy, Patient is asking for a pen. Charlotte Nava LPN documented in this encounter [facility] 01-06-2025 Note Addended by: TAYLOR HERNANDEZ on: 01/06/2025 01:51 PM Modules accepted: Orders [facility] 01-06-2025 Telephone encounter Note Please re-send Taylor Bernardo MA [facility] 01-06-2025 Miscellaneous Notes Addended by: TAYLOR BERNARDO on: 01/06/2025 01:51 PM Modules accepted: Orders Please re-send Taylor Bernardo MA The following approved medication requests have been transmitted electronically. Requested Prescriptions Signed Prescriptions Disp Refills Insulin Aspart (NOVOLOG) 100 unit/mL crtg 15 Each 3 Sig: Inject 8 Units subcutaneously daily with breakfast AND 3 Units daily with lunch AND 6 Units daily with dinner insulin glargine-yfgn (SEMGLEE) 100 unit/mL (3 mL) insulin pen 15 mL 3 Sig: Inject 14 Units subcutaneously daily at bedtime. Anju Pearce MD See MyChart reply documented in this encounter [facility] 01-05-2025 Telephone encounter Note The following approved medication requests have been transmitted electronically. Requested Prescriptions Signed Prescriptions Disp Refills Insulin Aspart (NOVOLOG) 100 unit/mL crtg 15 Each 3 Sig: Inject 8 Units subcutaneously daily with breakfast AND 3 Units daily with lunch AND 6 Units daily with dinner insulin glargine-yfgn (SEMGLEE) 100 unit/mL (3 mL) insulin pen 15 mL 3 Sig: Inject 14 Units subcutaneously daily at bedtime. Anju Pearce MD See MyChart reply [facility] 11-19-2024 Telephone encounter Note Letter mailed Taylor Bernardo MA [facility] 11-19-2024 Miscellaneous Notes Letter mailed Taylor Bernardo MA documented in this encounter [facility] 09-18-2024 Telephone encounter Note Spoke with patient and she stated her daughter scheduled her for [facility] Sunday09/22/24 [facility] 09-18-2024 Miscellaneous Notes Spoke with patient and she stated her daughter scheduled her for [facility] Sunday09/22/24 eGFR Cre: 21 at 09/12/2024 1:46 PM Calculated from: Serum Creatinine: 2.20 mg/dL at 09/12/2024 1:46 PM Age: 89 years Sex: Female at 09/12/2024 1:46 PM Calculated using the CKD-EPI Creatinine Equation (2020) Needs TTE if no recent and cardiology visit. Intolerant of dapagliflozin. Will try Jardiance. If BUN and creatinine improve on future checks done then spironolactone 12.5 to 25 mg daily. Consider switching from losartan to ARNI sacubitril-valsartan 24/26 BID. Consider hydralazine plus nitrate. documented in this encounter [facility] 09-18-2024 Telephone encounter Note eGFR Cre: 21 at 09/12/2024 1:46 PM Calculated from: Serum Creatinine: 2.20 mg/dL at 09/12/2024 1:46 PM Age: 89 years Sex: Female at 09/12/2024 1:46 PM Calculated using the CKD-EPI Creatinine Equation (2020) Needs TTE if no recent and cardiology visit. Intolerant of dapagliflozin. Will try Jardiance. If BUN and creatinine improve on future checks done then spironolactone 12.5 to 25 mg daily. Consider switching from losartan to ARNI sacubitril-valsartan 24/26 BID. Consider hydralazine plus nitrate. [facility] 09-12-2024 History of Present illness Narrative SUBJECTIVE: Covid-19 Vaccine() due on 07/06/2024 PK Concha Woodward is a 89 year old female. PMH significant for ACTIVE PROBLEM LIST Hypertension Goal Bp (Blood Pressure) < 150/90 Pure Hypercholesterolemia Osteopenia History of Gout Type 2 Diabetes Mellitus With Stage 3b Chronic Kidney Disease, With Long-Term Current Use of Insulin ([facility]) History of Cva (Cerebrovascular Accident) Hyperuricemia Diarrhea, Unspecified S/P Cabg X 4 Stage 3b Chronic Kidney Disease (Hcc) Hypertensive Kidney Disease With Stage 3b Chronic Kidney Disease (Hcc) Obesity, Class I, Bmi 30-34.9 Congestive Heart Failure, Unspecified Hf Chronicity, Unspecified Heart Failure Type (Hcc) Chronic Renal Disease, Stage IV (Hcc) Paroxysmal Atrial Fibrillation With Rapid Ventricular Response (Hcc) Presents today for routine follow-up visit. Aspirin and Plavix are taken daily. History of CAD s/p CAB years ago, followed by [facility]. Currently without symptomatic complaints.. DIABETES MELLITUS: Without report of excessive thirst or increased frequency of urination, chest pain or dyspnea , numbness, tingling or pain in extremities, new or unusual visual symptoms, low sugar/hypoglycemic reactions, weight loss/gain, lightheadedness/dizziness, and bowel changes/loose stools. . Patient's last HgA1C was Hemoglobin A1C (%) Date Value 05/09/2024 7.2 01/10/2024 7.8 09/15/2021 7.4 05/23/2021 7.5 ) HTN: She notes tolerating medication well. No adverse effects noted. Without report of headache, chest pain, palpitations, dyspnea, peripheral edema, orthopnea, fatigue and PND. Last 14 Encounter BP Readings: Date: BP: 05/12/2024 147/68 01/11/2024 128/68 09/20/2023 145/68[bp average[ 09/05/2023 156/68 08/23/2023 160/77[bp average[ 08/14/2023 150/80 07/21/2023 152/94 01/09/2023 122/72 01/01/2023 148/71 06/25/2022 142/78 05/24/2022 130/70 01/05/2022 142/82 10/21/2021 158/80 05/25/2021 136/74[Repeat BP[ Hyperlipidemia. Ms. Woodward reports doing well on current therapy Her most recent lipid panels are: Cholesterol, Total (mg/dL) Date Value 01/10/2024 152 01/06/2023 213 01/01/2021 210 08/25/2020 240 HDL Cholesterol (mg/dL) Date Value 01/10/2024 45 01/06/2023 48 01/01/2021 47 08/25/2020 49 LDL Cholesterol (mg/dL) Date Value 01/10/2024 53 01/06/2023 110 01/01/2021 104 08/25/2020 132 Triglyceride (mg/dL) Date Value 01/10/2024 269 01/06/2023 273 01/01/2021 293 08/25/2020 294 Ws seen by ENT for ear cleaning earlier today. 2 year follow up recommended. Review of Systems Constitutional: Negative. Respiratory: Negative. Cardiovascular: Negative. Endocrine: Negative. Objective BP 150/67 Pulse 80 Resp 16 Wt 78 kg (171 lb 15.3 oz) BMI (P) 31.45 kg/m Physical Exam Vitals and nursing note reviewed. Constitutional: Appearance: Normal appearance. HENT: Head: Normocephalic and atraumatic. Eyes: Conjunctiva/sclera: Conjunctivae normal. Neck: Thyroid: No thyromegaly. Vascular: Normal carotid pulses. No JVD. Cardiovascular: Rate and Rhythm: Normal rate and regular rhythm. Pulses: Normal pulses. Carotid pulses are 2+ on the right side and 2+ on the left side. Radial pulses are 2+ on the right side and 2+ on the left side. Heart sounds: Normal heart sounds. Pulmonary: Effort: Pulmonary effort is normal. Breath sounds: Normal breath sounds. Abdominal: General: Bowel sounds are normal. Palpations: Abdomen is soft. Musculoskeletal: Right lower leg: No edema. Left lower leg: No edema. Skin: General: Skin is warm and dry. Neurological: General: No focal deficit present. Mental Status: She is alert and oriented to person, place, and time. ALLERGIES Allergen Reactions Bactrim [Sulfametho* Vomiting Codeine Vomiting Prednisone Vomiting Statins [Statins-Hm* Intolerance Ultram [Tramadol Hc* Vomiting MEDICATIONS insulin glargine (BASAGLAR KWIKPEN U-100 INSULIN) 100 unit/mL (3 mL) Inject 14 Units subcutaneously daily at bedtime. insulin aspart, niacinamide, (FIASP FLEXTOUCH U-100 INSULIN) 100 unit/mL (3 mL) pen Inject 8 Units subcutaneously daily with breakfast AND 4 Units daily with lunch AND 6 Units daily with dinner. Will switch from Novolog to Fiasp in 2023. HOLD LUNCH TIME INSULIN FOR NOW. (Patient taking differently: Inject 8 Units subcutaneously daily with breakfast AND 3 Units daily with lunch AND 6 Units daily with dinner. Will switch from Novolog to Fiasp in 2023. ) allopurinol (ZYLOPRIM) 100 mg tablet Take 1 tablet by mouth once daily. clopidogrel (PLAVIX) 75 mg tablet Take 1 tablet by mouth once daily. carbamide peroxide (DEBROX) 6.5 % otic solution Use 5 Drops in both ears two times a day. blood sugar diagnostic (BLOOD GLUCOSE TEST) test strip Test blood sugar(s) 3 times daily. Dx: Type 2 DM - Controlled E11.65 Insulin: Yes Blood-Glucose Meter (TRUE METRIX GLUCOSE METER) 1 Kit three times a day. testing 3 times daily DX E11.65 Insulin Yes lancets (UNILET LANCETS) 30 gauge testing glucose 3 times daily Insulin Yes amLODIPine (NORVASC) 10 mg tablet Take 1 tablet by mouth once daily. Dose change, take 1 daily metoprolol succinate ER (TOPROL XL) 100 mg Take 1 tablet by mouth once daily. rosuvastatin (CRESTOR) 5 mg tablet take 1 tablet by mouth once daily as directed losartan (COZAAR) 50 mg tablet take 1 tablet by mouth once daily Insulin [place], Disposable, (BD ULTRA-FINE JOHN PEN NEEDLE) 32 gauge x 5/32 Use one needle for each dose. 1x/day. Cholecalciferol, Vitamin D3, 25 mcg (1,000 unit) cap Take 1 capsule by mouth once daily. (1000 to 2000 IU daily fine) aspirin 81 mg chewable tablet Take 1 tablet by mouth once daily. white petrolatum-mineral oil (SYSTANE NIGHTTIME) 94-3 % ophthalmic ointment Use 1 application in both eyes daily at bedtime. RESTASIS 0.05 % ophthalmic emulsion Use 1 Drop in both eyes twice daily. calcium carbonate 600 mg-cholecalciferol 400 units 600 mg-10 mcg (400 unit) tab Take 1 tablet by mouth once daily. dapagliflozin propanediol (FARXIGA) 5 mg tablet Take 1 tablet by mouth daily with breakfast. 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 Ortiz Stroke (cerebrum) ([facility]) 2013 Type II or unspecified type diabetes mellitus without mention of complication, uncontrolled Unspecified cardiovascular disease Unspecified essential hypertension Urgency of urination 2008 Social History Tobacco Use Smoking status: Never Smokeless tobacco: Never Vaping Use Vaping status: Never Used Substance Use Topics Alcohol use: No Drug use: No Latest Ref Rng 11/26/2023 12/24/2023 01/10/2024 05/09/2024 Protein, Total 6.3 - 8.0 g/dL 7.7 7.3 Albumin 3.9 - 4.9 g/dL 4.4 4.5 Calcium 8.5 - 10.2 mg/dL 9.3 9.5 9.7 9.9 Bilirubin, Total 0.2 - 1.3 mg/dL 0.3 0.3 Alkaline Phosphatase 34 - 123 U/L 95 93 AST 13 - 35 U/L 20 14 ALT 7 - 38 U/L 19 18 Glucose 74 - 99 mg/dL 161 (H) 248 (H) 101 (H) 113 (H) BUN 7 - 21 mg/dL 42 (H) 39 (H) 52 (H) 62 (H) Creatinine 0.58 - 0.96 mg/dL 2.12 (H) 2.09 (H) 2.10 (H) 2.13 (H) Sodium 136 - 144 mmol/L 137 139 139 138 Potassium 3.7 - 5.1 mmol/L 4.4 4.4 4.6 5.1 Chloride 98 - 107 mmol/L 104 104 107 (H) 105 CO2 22 - 30 mmol/L 22 23 20 (L) 20 (L) Anion Gap 8 - 15 mmol/L 11 12 12 13 eGFR >=60 mL/min/1.73m 22 (L) 23 (L) 23 (L) 22 (L) WBC 3.70 - 11.00 k/uL 8.20 8.60 RBC 3.90 - 5.20 m/uL 4.45 3.76 (L) Hemoglobin 11.5 - 15.5 g/dL 13.2 11.5 Hematocrit 36.0 - 46.0 % 40.5 35.7 (L) MCV 80.0 - 100.0 fL 91.0 94.9 MCH 26.0 - 34.0 pg 29.7 30.6 MCHC 30.5 - 36.0 g/dL 32.6 32.2 RDW-CV 11.5 - 15.0 % 13.9 13.4 Platelet Count 150 - 400 k/uL 246 265 MPV 9.0 - 12.7 fL 10.9 10.9 Absolute nRBC <0.01 k/uL <0.01 <0.01 Cholesterol, Total <200 mg/dL 152 Triglyceride <150 mg/dL 269 (H) HDL Cholesterol >39 mg/dL 45 Non HDL Cholesterol <130 mg/dL 107 Fasting Time hrs 8 VLDL Cholesterol <30 mg/dL 54 (H) TC:HDL Ratio <5.10 3.38 LDL Cholesterol <100 mg/dL 53 LDL:HDL Ratio <2.54 1.18 Hemoglobin A1C 4.3 - 5.6 % 7.8 (H) 7.2 (H) Estimated Average Glucose mg/dL 177 160 NT Pro BNP <450 pg/mL 2,517 (H) 2,064 (H) Uric Acid 2.5 - 6.6 mg/dL 5.8 Vitamin D 25 Hydroxy 31.0 - 80.0 ng/mL 41.0 31.2 ASSESSMENT/PLAN: 1. Type 2 diabetes mellitus with stage 3b chronic kidney disease, with long-term current use of insulin (HCC) - ICD9: 250.40, 585.3, V58.67, ICD10: E11.22, N18.32, Z79.4 (primary diagnosis) 2. Hypertensive kidney disease with stage 3b chronic kidney disease (HCC) - ICD9: 403.90, 585.3, ICD10: I12.9, N18.32 3. Hypertensive heart and chronic kidney disease with heart failure and stage 1 through stage 4 chronic kidney disease, or unspecified chronic kidney disease (HCC) - ICD9: 404.91, 428.9, 585.9, ICD10: I13.0 controlled Notes did not feel well on farxiga so stopped taking it, declines alternate at this time - Continue current medications - Counseled on healthy diet and regular exercise - eGFR: 22 Stable - Endorse avoiding NSAIDs, adequate hydration - hs been pushing fluids - ACEi/ARB prescribed: yes - Follow up with kidney medicine - declined - LOSARTAN 50 MG TABLET - BASIC METABOLIC PANEL - HEMOGLOBIN A1C - NT PRO BNP 4. Hypertension goal BP (blood pressure) < 150/90 - ICD9: 401.9, ICD10: I10 controlled - Continue current medications - Encourage sodium restriction, DASH or Mediterranean diet - Recommend regular aerobic exercise / walking - LOSARTAN 50 MG TABLET 5. Congestive heart failure, unspecified HF chronicity, unspecified heart failure type (HCC) - ICD9: 428.0, ICD10: I50.9 Followed by [facility] - Continue current medications - Encouraged sodium restriction - Recommend regular aerobic exercise/ walking - NT PRO BNP 6. Encounter for immunization - ICD9: V03.89, ICD10: Z23 - [employer] COVID-19 VACCINE AGE 12+ YR ([place]) - declined at this time Not needing insulin refill yet, will let us know when needed. Her formulary is changing, covered insulins are listed in [employer] message today from her daughter.GVOKE HYPOPEN, HUMULIN R U-500 KWIKPEN, INSULIN ASP PRT INSULIN PEN, INSULIN ASPART U-100 INSULIN PEN, INSULIN DEGLUDEC INSULIN PEN, INSULIN GLARGINE U-300 INSULIN PEN, INSULIN GLARGINE-YFGN INSULIN PEN. labs today 4 mo follow up Anju Pearce MD- with labs 8 mo follow up Ishmael Davis APRN.[employer] Ishmael Davis APRN.CNS Medical Decision Making: Problems: Moderate: 2+ stable chronic illnesses Data: Unique test result(s) reviewed: 3+ Risk: Moderate: Drug management Medical Decision Making Level: 4 - Moderate documented in this encounter [facility] 09-12-2024 Note HNO ID: [id number] Author: ISHMAEL DAVIS APRN.CNS Service: ? Author Type: Nurse Specialist Type: Progress Notes Filed: 09/18/2024 07:49 Note Text: SUBJECTIVE: Covid-19 Vaccine() due on 07/06/2024 HPI Concha Woodward is a 89 year old female. PMH significant for ACTIVE PROBLEM LIST Hypertension Goal Bp (Blood Pressure) < 150/90 Pure Hypercholesterolemia Osteopenia History of Gout Type 2 Diabetes Mellitus With Stage 3b Chronic Kidney Disease, With Long-Term Current Use of Insulin (Hcc) History of Cva (Cerebrovascular Accident) Hyperuricemia Diarrhea, Unspecified S/P Cabg X 4 Stage 3b Chronic Kidney Disease (Hcc) Hypertensive Kidney Disease With Stage 3b Chronic Kidney Disease (Hcc) Obesity, Class I, Bmi 30-34.9 Congestive Heart Failure, Unspecified Hf Chronicity, Unspecified Heart Failure Type (Hcc) Chronic Renal Disease, Stage IV (Hcc) Paroxysmal Atrial Fibrillation With Rapid Ventricular Response (Hcc) Presents today for routine follow-up visit. Aspirin and Plavix are taken daily. History of CAD s/p CAB, followed by [facility]. Currently without symptomatic complaints. Reports no recent visit. History of CHF taking losartan, metoprolol succinate. DIABETES MELLITUS: Without report of excessive thirst or increased frequency of urination, chest pain or dyspnea , numbness, tingling or pain in extremities, new or unusual visual symptoms, low sugar/hypoglycemic reactions, weight loss/gain, lightheadedness/dizziness, and bowel changes/loose stools. . Patient's last HgA1C was Hemoglobin A1C (%) Date Value 05/09/2024 7.2 01/10/2024 7.8 09/15/2021 7.4 05/23/2021 7.5 ) HTN: She notes tolerating medication well. No adverse effects noted. Without report of headache, chest pain, palpitations, dyspnea, peripheral edema, orthopnea, fatigue and PND. Last 14 Encounter BP Readings: Date: BP: 05/12/2024 147/68 01/11/2024 128/68 09/20/2023 145/68[bp average[ 09/05/2023 156/68 08/23/2023 160/77[bp average[ 08/14/2023 150/80 07/21/2023 152/94 01/09/2023 122/72 01/01/2023 148/71 06/25/2022 142/78 05/24/2022 130/70 01/05/2022 142/82 10/21/2021 158/80 05/25/2021 136/74[Repeat BP[ Hyperlipidemia. Ms. Woodward reports doing well on current therapy Her most recent lipid panels are: Cholesterol, Total (mg/dL) Date Value 01/10/2024 152 01/06/2023 213 01/01/2021 210 08/25/2020 240 HDL Cholesterol (mg/dL) Date Value 01/10/2024 45 01/06/2023 48 01/01/2021 47 08/25/2020 49 LDL Cholesterol (mg/dL) Date Value 01/10/2024 53 01/06/2023 110 01/01/2021 104 08/25/2020 132 Triglyceride (mg/dL) Date Value 01/10/2024 269 01/06/2023 273 01/01/2021 293 08/25/2020 294 Ws seen by ENT for ear cleaning earlier today. 2 year follow up recommended. Review of Systems Constitutional: Negative. Respiratory: Negative. Cardiovascular: Negative. Endocrine: Negative. Objective BP 150/67 Pulse 80 Resp 16 Wt 78 kg (171 lb 15.3 oz) BMI (P) 31.45 kg/m? Physical Exam Vitals and nursing note reviewed. Constitutional: Appearance: Normal appearance. HENT: Head: Normocephalic and atraumatic. Eyes: Conjunctiva/sclera: Conjunctivae normal. Neck: Thyroid: No thyromegaly. Vascular: Normal carotid pulses. No JVD. Cardiovascular: Rate and Rhythm: Normal rate and regular rhythm. Pulses: Normal pulses. Carotid pulses are 2+ on the right side and 2+ on the left side. Radial pulses are 2+ on the right side and 2+ on the left side. Heart sounds: Normal heart sounds. Pulmonary: Effort: Pulmonary effort is normal. Breath sounds: Normal breath sounds. Abdominal: General: Bowel sounds are normal. Palpations: Abdomen is soft. Musculoskeletal: Right lower leg: No edema. Left lower leg: No edema. Skin: General: Skin is warm and dry. Neurological: General: No focal deficit present. Mental Status: She is alert and oriented to person, place, and time. ALLERGIES Allergen Reactions Bactrim [Sulfametho* Vomiting Codeine Vomiting Prednisone Vomiting Statins [Statins-Hm* Intolerance Ultram [Tramadol Hc* Vomiting MEDICATIONS insulin glargine (BASAGLAR KWIKPEN U-100 INSULIN) 100 unit/mL (3 mL) Inject 14 Units subcutaneously daily at bedtime. insulin aspart, niacinamide, (FIASP FLEXTOUCH U-100 INSULIN) 100 unit/mL (3 mL) pen Inject 8 Units subcutaneously daily with breakfast AND 4 Units daily with lunch AND 6 Units daily with dinner. Will switch from Novolog to Fiasp in 2023. HOLD LUNCH TIME INSULIN FOR NOW. (Patient taking differently: Inject 8 Units subcutaneously daily with breakfast AND 3 Units daily with lunch AND 6 Units daily with dinner. Will switch from Novolog to Fiasp in 2023. ) allopurinol (ZYLOPRIM) 100 mg tablet Take 1 tablet by mouth once daily. clopidogrel (PLAVIX) 75 mg tablet Take 1 tablet by mouth once daily. carbamide peroxide (DEBROX) 6.5 % otic solution U (more content not included)... [facility] 08-07-2024 Telephone encounter Note The patient has been identified by name and date of : Yes Caregiver verified no other encounters exist for this prescription request: Yes Caregiver confirmed with patient/requestor that no other refills are due, in the near future, with this provider at this time: Yes The last office visit in the department: 05/12/2024 Does the patient have a future office visit with this provider/department: Yes 09/12/2024 Requested Prescriptions Pending Prescriptions Disp Refills insulin glargine (BASAGLAR KWIKPEN U-100 INSULIN) 100 unit/mL (3 mL) 15 mL 11 Sig: Inject 14 Units subcutaneously daily at bedtime. Dirk Simms RN August 07, 2024 8:37 AM [facility] 08-07-2024 Miscellaneous Notes The patient has been identified by name and date of : Yes Caregiver verified no other encounters exist for this prescription request: Yes Caregiver confirmed with patient/requestor that no other refills are due, in the near future, with this provider at this time: Yes The last office visit in the department: 05/12/2024 Does the patient have a future office visit with this provider/department: Yes 09/12/2024 Requested Prescriptions Pending Prescriptions Disp Refills insulin glargine (BASAGLAR KWIKPEN U-100 INSULIN) 100 unit/mL (3 mL) 15 mL 11 Sig: Inject 14 Units subcutaneously daily at bedtime. Dirk Simms RN August 07, 2024 8:37 AM documented in this encounter [facility] 06-21-2024 Telephone encounter Note Noted back on FIASP. Okay to continue lunch time insulin. Adjust dose of insulin with meals as needed Updated med list [facility] 06-21-2024 Miscellaneous Notes Noted back on FIASP. Okay to continue lunch time insulin. Adjust dose of insulin with meals as needed Updated med list Phoned patient and given provider's message below with verbalized understanding. Patient reports she picked Fiasp at [facility] pharmacy yesterday. Reports her insurance would not cover novolog. Reports she has been taking 3 units at lunch and will continue to do so. If she has been holding lunch time insulin, continue to hold it The order was filed with prior directions to get Novolog since FIASP not available Can send new RX in with no insulin at lunch if not needing anything if that helps make if clearer for her. If she has been taking lunch insulin and sugars fine, may keep taking it. Please clarify directions on patients Insulin. States that she is confused if she should take lunch time insulin or hold lunchtime insulin. Directions on prescriptions are not clear. Please advise. documented in this encounter [facility] 06-21-2024 Telephone encounter Note Phoned patient and given provider's message below with verbalized understanding. Patient reports she picked Fiasp at [facility] pharmacy yesterday. Reports her insurance would not cover novolog. Reports she has been taking 3 units at lunch and will continue to do so. [facility] 06-20-2024 Telephone encounter Note If she has been holding lunch time insulin, continue to hold it The order was filed with prior directions to get Novolog since FIASP not available Can send new RX in with no insulin at lunch if not needing anything if that helps make if clearer for her. If she has been taking lunch insulin and sugars fine, may keep taking it. [facility] 06-20-2024 Telephone encounter Note Please clarify directions on patients Insulin. States that she is confused if she should take lunch time insulin or hold lunchtime insulin. Directions on prescriptions are not clear. Please advise. [facility] 06-19-2024 Telephone encounter Note Patient notified of providers message and verbalized understanding. [facility] 06-19-2024 Miscellaneous Notes Patient notified of providers message and verbalized understanding. Addended by: ISHMAEL DAVIS on: 06/19/2024 04:47 PM Modules accepted: Orders I sent in both prescriptions. She can pick whichever one she can get. If the [facility] pharmacy is closed and she prefers the Fiasp insulin and wants to wait until tomorrow I think that is okay Patient calling back [facility] pharmacy only one that has Fiasp insulin in stock. Not sure which to pend. Patient was wanting to get picked up today, told her pharmacy closes early. Please advise Pt called and is notified of providers message and instructions. Pt voices understanding. She is going to call [facility] pharmacy and if they have the fiasp in stock she will call us back to send it over there. She said her insurance doesn't cover the Novolog anymore that's why she went to the [facility]. I also told her she could call her insurance and see if there is anything else they cover aside from the fiasp as it is out of stick. Esthela Linder, RN Rx sent for Novolog which she was taking before. Can check to see if fiasp available at [facility] pharmacy. Pt calls states will be out of insulin tomorrow. Just got off phone with [facility] they will not get her fiasp- flex touch insulin in until end of month or later called a few other stores in town same thing. Asking if something else could be called in in its place for her? documented in this encounter [facility] 06-19-2024 Note Addended by: ISHMAEL DAVIS on: 06/19/2024 04:47 PM Modules accepted: Orders [facility] 06-19-2024 Telephone encounter Note I sent in both prescriptions. She can pick whichever one she can get. If the [facility] pharmacy is closed and she prefers the Fiasp insulin and wants to wait until tomorrow I think that is okay [facility] 06-19-2024 Telephone encounter Note Patient calling back [facility] pharmacy only one that has Fiasp insulin in stock. Not sure which to pend. Patient was wanting to get picked up today, told her pharmacy closes early. Please advise [facility] 06-19-2024 Telephone encounter Note Pt called and is notified of providers message and instructions. Pt voices understanding. She is going to call [facility] pharmacy and if they have the fiasp in stock she will call us back to send it over there. She said her insurance doesn't cover the Novolog anymore that's why she [facility]. I also told her she could call her insurance and see if there is anything else they cover aside from the fiasp as it is out of stick. Esthela Linder, RITA [facility] 06-19-2024 Telephone encounter Note Rx sent for Novolog which she was taking before. Can check to see if fiasp available at [facility] pharmacy. [facility] 06-19-2024 Telephone encounter Note Pt calls states will be out of insulin tomorrow. Just got off phone with [facility] they will not get her fiasp- flex touch insulin in until end of month or later called a few other stores in town same thing. Asking if something else could be called in in its place for her? [facility] 05-12-2024 Instructions Ishmael Davis APRN.ELIZA - 05/12/2024 1:49 PM EDT Increase your fluid intake, aim for 64 ounces per day You currently look very dehydrated by your lab work Do not take your short acting insulin at lunchtime for now. Start taking dapagliflozin for kidney function. Let us know if blood sugars are running low or high as we can help you make adjustments. Try Debrox drops both ears for 5 days to help with ear wax. Please schedule an appointment with [facility] for follow-up documented in this encounter [facility] 05-12-2024 History of Present illness Narrative SUBJECTIVE: Dilated Retinal Exam due on 10/02/2023 Behavioral Health Screening Never done HPI Concha Woodward is a 89 year old female. PMH significant for ACTIVE PROBLEM LIST Hypertension Goal Bp (Blood Pressure) < 150/90 Pure Hypercholesterolemia Osteopenia History of Gout Type 2 Diabetes Mellitus With Stage 3b Chronic Kidney Disease, With Long-Term Current Use of Insulin (Hcc) History of Cva (Cerebrovascular Accident) Hyperuricemia Diarrhea, Unspecified S/P Cabg X 4 Stage 3b Chronic Kidney Disease (Hcc) Hypertensive Kidney Disease With Stage 3b Chronic Kidney Disease (Hcc) Obesity, Class I, Bmi 30-34.9 Congestive Heart Failure, Unspecified Hf Chronicity, Unspecified Heart Failure Type (Hcc) Chronic Renal Disease, Stage IV ([facility]) Paroxysmal Atrial Fibrillation With Rapid Ventricular Response ([facility]) Presents today for routine follow-up visit. At her last visit she reported postmenopausal bleeding x 3 days and attributed it to Jardiance so stopped taking it. Today reports no further recurrence, stopped when she stopped taking medication. Recurrence: none Not interested in pursuing further workup at this time. Aspirin and Plavix are taken daily. History of CAD s/p CAB years ago, [facility], overdue for follow-up. Currently without symptomatic complaints.. DIABETES MELLITUS: She notes that mid afternoon blood sugars can run low. She has been taking a snack about 4 PM. Noted elevation when she ate scones recently at 300. Otherwise well-controlled. Without report of excessive thirst or increased frequency of urination, chest pain or dyspnea , numbness, tingling or pain in extremities, new or unusual visual symptoms, low sugar/hypoglycemic reactions, weight loss/gain, lightheadedness/dizziness, and bowel changes/loose stools. . Patient's last HgA1C was Hemoglobin A1C (%) Date Value 05/09/2024 7.2 01/10/2024 7.8 09/15/2021 7.4 05/23/2021 7.5 ) HTN: She notes tolerating addition of losartan well. No adverse effects noted. Without report of headache, chest pain, palpitations, dyspnea, peripheral edema, orthopnea, fatigue and PND. Last 14 Encounter BP Readings: Date: BP: 05/12/2024 147/68 01/11/2024 128/68 09/20/2023 145/68[bp average[ 09/05/2023 156/68 08/23/2023 160/77[bp average[ 08/14/2023 150/80 07/21/2023 152/94 01/09/2023 122/72 01/01/2023 148/71 06/25/2022 142/78 05/24/2022 130/70 01/05/2022 142/82 10/21/2021 158/80 05/25/2021 136/74[Repeat BP[ Hyperlipidemia. Ms. Woodward reports doing well on current therapy Her most recent lipid panels are: Cholesterol, Total (mg/dL) Date Value 01/10/2024 152 01/06/2023 213 01/01/2021 210 08/25/2020 240 HDL Cholesterol (mg/dL) Date Value 01/10/2024 45 01/06/2023 48 01/01/2021 47 08/25/2020 49 LDL Cholesterol (mg/dL) Date Value 01/10/2024 53 01/06/2023 110 01/01/2021 104 08/25/2020 132 Triglyceride (mg/dL) Date Value 01/10/2024 269 01/06/2023 273 01/01/2021 293 08/25/2020 294 Review of Systems Constitutional: Negative. Respiratory: Negative. Cardiovascular: Negative. Endocrine: Negative. Objective BP 147/68 Pulse 69 Resp 16 Wt 78 kg (172 lb) BMI (P) 31.46 kg/m Physical Exam Vitals and nursing note reviewed. Constitutional: Appearance: Normal appearance. HENT: Head: Normocephalic and atraumatic. Eyes: Conjunctiva/sclera: Conjunctivae normal. Neck: Thyroid: No thyromegaly. Vascular: Normal carotid pulses. No JVD. Cardiovascular: Rate and Rhythm: Normal rate and regular rhythm. Pulses: Normal pulses. Carotid pulses are 2+ on the right side and 2+ on the left side. Radial pulses are 2+ on the right side and 2+ on the left side. Heart sounds: Normal heart sounds. Pulmonary: Effort: Pulmonary effort is normal. Breath sounds: Normal breath sounds. Abdominal: General: Bowel sounds are normal. Palpations: Abdomen is soft. Musculoskeletal: Right lower leg: No edema. Left lower leg: No edema. Skin: General: Skin is warm and dry. Neurological: General: No focal deficit present. Mental Status: She is alert and oriented to person, place, and time. ALLERGIES Allergen Reactions Bactrim [Sulfametho* Vomiting Codeine Vomiting Prednisone Vomiting Statins [Statins-Hm* Intolerance Ultram [Tramadol Hc* Vomiting MEDICATIONS blood sugar diagnostic (BLOOD GLUCOSE TEST) test strip Test blood sugar(s) 3 times daily. Dx: Type 2 DM - Controlled E11.65 Insulin: Yes Blood-Glucose Meter (TRUE METRIX GLUCOSE METER) 1 Kit three times a day. testing 3 times daily DX E11.65 Insulin Yes lancets (UNILET LANCETS) 30 gauge testing glucose 3 times daily Insulin Yes amLODIPine (NORVASC) 10 mg tablet Take 1 tablet by mouth once daily. Dose change, take 1 daily metoprolol succinate ER (TOPROL XL) 100 mg Take 1 tablet by mouth once daily. rosuvastatin (CRESTOR) 5 mg tablet take 1 tablet by mouth once daily as directed insulin aspart, niacinamide, (FIASP FLEXTOUCH U-100 INSULIN) 100 unit/mL (3 mL) pen Inject 8 Units subcutaneously daily with breakfast AND 3 Units daily with lunch AND 6 Units daily with dinner. Will switch from Novolog to Fiasp in 2023.. losartan (COZAAR) 50 mg tablet take 1 tablet by mouth once daily insulin glargine (BASAGLAR KWIKPEN U-100 INSULIN) 100 unit/mL (3 mL) Inject 14 Units subcutaneously daily at bedtime. Insulin [place], Disposable, (BD ULTRA-FINE JOHN PEN NEEDLE) 32 gauge x Use one needle for each dose. 1x/day. Cholecalciferol, Vitamin D3, 25 mcg (1,000 unit) cap Take 1 capsule by mouth once daily. (1000 to 2000 IU daily fine) aspirin 81 mg chewable tablet Take 1 tablet by mouth once daily. white petrolatum-mineral oil (SYSTANE NIGHTTIME) 94-3 % ophthalmic ointment Use 1 application in both eyes daily at bedtime. RESTASIS 0.05 % ophthalmic emulsion Use 1 Drop in both eyes twice daily. calcium carbonate 600 mg-cholecalciferol 400 units 600 mg-10 mcg (400 unit) tab Take 1 tablet by mouth once daily. allopurinol (ZYLOPRIM) 100 mg tablet Take 1 tablet by mouth once daily. clopidogrel (PLAVIX) 75 mg tablet Take 1 tablet by mouth once daily. dapagliflozin propanediol (FARXIGA) 5 mg tablet Take 1 tablet by mouth daily with breakfast. 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 Ortiz Stroke (cerebrum) ([facility]) 2013 Type II or unspecified type diabetes mellitus without mention of complication, uncontrolled Unspecified cardiovascular disease Unspecified essential hypertension Urgency of urination 2008 Social History Tobacco Use Smoking status: Never Smokeless tobacco: Never Vaping Use Vaping Use: Never used Substance Use Topics Alcohol use: No Drug use: No Latest Ref Rng 08/24/2023 11/26/2023 12/24/2023 01/10/2024 05/09/2024 Color Yellow Yellow Clarity Clear Clear Glucose, Urine Negative Negative Bilirubin, Urine Negative Negative Ketones, Urine Negative Negative Specific [place], Ur 1.005 - 1.030 1.020 Hemoglobin/Blood,Ur Negative 2+ ! pH, Urine <8.5 5.5 Protein, Urine Negative 3+ ! Urobilinogen 0.2-1.0 EU/dL 0.2 EU/dL Nitrites Negative Negative Leukest Negative Trace ! WBC, Urine 0-5 /HPF >20 /HPF ! RBC, Urine 0-2 /HPF 11-20 /HPF ! Bacteria uL Negative uL 2,224.3 (H) Epithelial Cells /HPF Moderate Hyaline Cast 0 /LPF 0 /LPF Protein, Total 6.3 - 8.0 g/dL 6.4 7.7 7.3 Albumin 3.9 - 4.9 g/dL 4.0 4.4 4.5 Calcium 8.5 - 10.2 mg/dL 9.1 9.3 9.5 9.7 9.9 Bilirubin, Total 0.2 - 1.3 mg/dL 0.2 0.3 0.3 Alkaline Phosphatase 34 - 123 U/L 99 95 93 AST 13 - 35 U/L 16 20 14 ALT 7 - 38 U/L 15 19 18 Glucose 74 - 99 mg/dL 158 (H) 161 (H) 248 (H) 101 (H) 113 (H) BUN 7 - 21 mg/dL 39 (H) 42 (H) 39 (H) 52 (H) 62 (H) Creatinine 0.58 - 0.96 mg/dL 1.75 (H) 2.12 (H) 2.09 (H) 2.10 (H) 2.13 (H) Sodium 136 - 144 mmol/L 137 137 139 139 138 Potassium 3.7 - 5.1 mmol/L 4.1 4.4 4.4 4.6 5.1 Chloride 98 - 107 mmol/L 104 104 104 107 (H) 105 CO2 22 - 30 mmol/L 20 (L) 22 23 20 (L) 20 (L) Anion Gap 8 - 15 mmol/L 13 11 12 12 13 eGFR >=60 mL/min/1.73m 28 (L) 22 (L) 23 (L) 23 (L) 22 (L) WBC 3.70 - 11.00 k/uL 10.64 8.20 8.60 RBC 3.90 - 5.20 m/uL 4.12 4.45 3.76 (L) Hemoglobin 11.5 - 15.5 g/dL 12.4 13.2 11.5 Hematocrit 36.0 - 46.0 % 38.4 40.5 35.7 (L) MCV 80.0 - 100.0 fL 93.2 91.0 94.9 MCH 26.0 - 34.0 pg 30.1 29.7 30.6 MCHC 30.5 - 36.0 g/dL 32.3 32.6 32.2 RDW-CV 11.5 - 15.0 % 13.8 13.9 13.4 Platelet Count 150 - 400 k/uL 263 246 265 MPV 9.0 - 12.7 fL 11.0 10.9 10.9 Absolute nRBC <0.01 k/uL <0.01 <0.01 <0.01 Cholesterol, Total <200 mg/dL 152 Triglyceride <150 mg/dL 269 (H) HDL Cholesterol >39 mg/dL 45 Non HDL Cholesterol <130 mg/dL 107 Fasting Time hrs 8 VLDL Cholesterol <30 mg/dL 54 (H) TC:HDL Ratio <5.10 3.38 LDL Cholesterol <100 mg/dL 53 LDL:HDL Ratio <2.54 1.18 Creatinine, Ur Random (UCRR) 20.0 - 300.0 mg/dL 135.3 109.6 Albumin, Urine Random mg/L 2,962.6 1,763.0 Albumin/Creat Ratio <30 mg/g 2,190 (H) 1,609 (H) Hemoglobin A1C 4.3 - 5.6 % 7.8 (H) 7.8 (H) 7.2 (H) Estimated Average Glucose mg/dL 177 177 160 Vitamin D 25 Hydroxy 31.0 - 80.0 ng/mL 38.2 41.0 31.2 Uric Acid 2.5 - 6.6 mg/dL 6.5 5.8 NT Pro BNP <450 pg/mL 2,517 (H) 2,064 (H) ASSESSMENT/PLAN: 1. Screening for diabetic retinopathy - ICD9: V80.2, ICD10: Z13.5 (primary diagnosis) - CONSULT TO OPHTHALMOLOGY 2. PMB (postmenopausal bleeding) - ICD9: 627.1, ICD10: N95.0 - CONSULT TO GYNECOLOGY 3. Idiopathic gout of multiple sites, unspecified chronicity - ICD9: 274.00, ICD10: M10.09 - ALLOPURINOL 100 MG TABLET 4. Hyperuricemia - ICD9: 790.6, ICD10: E79.0 - ALLOPURINOL 100 MG TABLET 5. 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 Hypertension goal BP (blood pressure) < 150/90 - ICD9: 401.9, ICD10: I10 controlled - Encouraged sodium restriction, DASH or Mediterranean diet - Recommend regular aerobic exercise 7. Type 2 diabetes mellitus with stage 3b chronic kidney disease, with long-term current use of insulin (HCC) - ICD9: 250.40, 585.3, V58.67, ICD10: E11.22, N18.32, Z79.4 controlled - eGFR: 22 Stable - Albuminuria: 1609 - Counseled on avoiding NSAIDs, adequate hydration - CONSULT TO OPHTHALMOLOGY - declined at this time - CONSULT TO NEPHROLOGY- declined at this time 8. Pure hypercholesterolemia - ICD9: 272.0, ICD10: E78.00 Recommend a plant based diet such as Mediterranean diet with plenty of vegetables, fruits,whole grains, fish, chicken, turkey or plant proteins and routine exercise such as walking Continue with current medication unchanged. 9. History of CVA (cerebrovascular accident) - ICD9: V12.54, ICD10: Z86.73 No current symptoms. Continue with aspirin and Plavix. 10. S/P CABG x 4 - ICD9: V45.81, ICD10: Z95.1 Has been followed by [facility], overdue for follow-up visit. Endorse scheduling an appointment. 11. Stage 3b chronic kidney disease (HCC) - ICD9: 585.3, ICD10: N18.32 Recent lab work shows that she is feeling well dehydrated. Endorse increasing fluid intake. She noted possible side effect with Jardiance. Will switch to Farxiga. Endorse nephrology willing to go. Declined at this time. Recommend avoiding nephrotoxic medications. - CONSULT TO NEPHROLOGY 12. Excessive cerumen in both ear canals - ICD9: 380.4, ICD10: H61.23 Recommend treatment x 5 days then once weekly both ears. Consider seeing ENT for clearing of excess wax both ears. - CONSULT TO ENT Ishmael Davis APRN.BRICK CLEANER ASSESSMENT/PLAN: 1. . Hypertension goal BP (blood pressure) < 150/90 - ICD9: 401.9, ICD10: I10 Blood pressure is controlled. Endorse continue on with current medications unchanged. Has not recently seen [facility] cardiology. Endorse scheduling an appointment to reestablish care. Echocardiogram completed 2019 at [facility] showed LVEF 30%. [facility] 2019. S/P CABG CHAUDHARI-Dx, LAD; SVG-OM Cx, SVG-RCA Return to clinic 1 month for recheck of blood pressure. 2. Type 2 diabetes mellitus with stage 3b chronic kidney disease, with long-term current use of insulin (HCC) - ICD9: 250.40, 585.3, V58.67, ICD10: E11.22, N18.32, Z79.4 (primary diagnosis) Controlled, continue with current medication unchanged 2. Chronic renal disease, stage IV (HCC) - ICD9: 585.4, ICD10: N18.4 Stable, Endorse sufficient fluid intake 3. Hypertension goal BP (blood pressure) < 150/90 - ICD9: 401.9, ICD10: I10 4. Macroalbuminuric diabetic nephropathy (HCC) - ICD9: 250.40, 583.81, ICD10: E11.21 Continue with losartan. Consider addition of Jardiance or similar at later date. 5. Congestive heart failure, unspecified HF chronicity, unspecified heart failure type (HCC) - ICD9: 428.0, ICD10: I50.9 Continue with current treatment unchanged for now. Schedule follow-up with cardiology, [facility]. Advised: Increase your fluid intake, aim for 64 ounces per day You currently look very dehydrated by your lab work Do not take your short acting insulin at lunchtime for now. Start taking dapagliflozin for kidney function. Let us know if blood sugars are running low or high as we can help you make adjustments. Try Debrox drops both ears for 5 days to help with ear wax. Please schedule an appointment with [facility] for follow-up 4 mo follow up MD Ishmael Zafar APRN.ELIZA Medical Decision Making: Problems: Moderate: 1+ chronic illnesses with change Risk: Moderate: Drug management Medical Decision Making Level: 4 - Moderate documented in this encounter [facility] 01-17-2024 Miscellaneous Notes Thought needed glucometer and/or test strips replaced the way was in encounter so new orders were sent. Note completed. The following approved medication requests have been transmitted electronically. Requested Prescriptions Signed Prescriptions Disp Refills blood sugar diagnostic (BLOOD GLUCOSE TEST) test strip 300 Strip 3 Sig: Test blood sugar(s) 3 times daily. Dx: Type 2 DM - Controlled E11.65 Insulin: Yes Authorizing Provider: ANJU PEARCE MD See message from pharmacy that they [facility] face to face notes. OV from 01/11/24 is not completed. Once completed please fax to pharmacy. Angelica Rogel LPN documented in this encounter [facility] 01-14-2024 Miscellaneous Notes Rx sent [facility] pharmacy calling patient Medicare B insurance only covers [employer] so needing new rx for [employer] Met[employer] meter and strips and [employer] Lancets please. With all diagnosis codes please, times a day testing, insulin, etc. Asking for copy of last office visit face to face notes faxed to [phone]. Pending rx for items requested. Printed office notes and faxed to [phone] as requested. Please advise Patient has been identified by name and date of : Pharmacy phones for refill(s): Requested Prescriptions Pending Prescriptions Disp Refills Blood-Glucose Meter (TRUE METRIX GLUCOSE METER) 1 Each 0 Si Kit three times a day. testing 3 times daily DX E11.65 Insulin Yes blood sugar diagnostic (TRUE METRIX GLUCOSE TEST STRIP) test strip 300 Strip 3 Sig: testing 3 times daily DX E11.65 Insulin Yes lancets (UNILET LANCETS) 30 gauge 300 Each 3 Sig: testing glucose 3 times daily Insulin Yes Date of last office visit in primary care: 01/11/2024 Date of next office visit in primary care: 05/12/2024 Please advise. Thank you. Tram Jimenez LPN. documented in this encounter [facility] 01-14-2024 Miscellaneous Notes Patient has been identified by name and date of : No Patient phones for refill(s): Requested Prescriptions Pending Prescriptions Disp Refills blood sugar diagnostic (FREESTYLE LITE STRIPS) test strip 300 Strip 3 Sig: Test blood sugar(s) 3 times daily. Dx: Type 2 DM - Uncontrolled E11.65 Insulin: Yes Date of last office visit in primary care: 01/11/2024 Date of next office visit in primary care: 05/12/2024 Please advise. Thank you. Maureen Shoemaker LPN. Patient has been identified by name and date of : Yes Patient phones for refill(s): Requested Prescriptions Pending Prescriptions Disp Refills blood sugar diagnostic (FREESTYLE LITE STRIPS) test strip 300 Strip 3 Sig: Test blood sugar(s) 3 times daily. Dx: Type 2 DM - Uncontrolled E11.65 Insulin: Yes Date of last office visit in primary care: 01/11/2024 Date of next office visit in primary care: 05/12/2024 Please Note: Per Pharmacist at [facility], they can no longer process Medicare prescriptions under Part B. Which the test strips fall under. Please send to [facility] for the patient. Patient is aware of this already. Please advise. Thank you. Charleen Talpa Pss. documented in this encounter [facility] 01-11-2024 Instructions Anju Pearce MD - 01/11/2024 1:24 PM EST Get water in through tea and soup to get up to 8 cups of water daily. documented in this encounter [facility] 01-11-2024 History of Present illness Narrative This note was created using Cinemurriter. Subjective Concha Woodward is a 88 year old female. HISTORY Concha Woodward is a 88 year old lady here for yearly exam and follow up appointment. BP better since started losartan. Not checking as often. Sugars doing well. AM--102-110. No sugars over 200s. Checking sugars 3 times daily at least--on Novolog with meals and Basaglar at bedtime. See assessment and plan for other issues addressed. 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 Ortiz Stroke (cerebrum) ([facility]) 2014 Type II or unspecified type diabetes mellitus without mention of complication, uncontrolled Unspecified cardiovascular disease Unspecified essential hypertension Urgency of urination 2009 Current Outpatient Medications Medication Sig rosuvastatin (CRESTOR) 5 mg tablet take 1 tablet by mouth once daily as directed insulin aspart U-100 (NOVOLOG FLEXPEN U-100 INSULIN) 100 unit/mL (3 mL) Take 8 units with breakfast, 3 units with lunch, and 6 units with dinner. Will be switching to Fiasp in 2023. insulin aspart, niacinamide, (FIASP FLEXTOUCH U-100 INSULIN) 100 unit/mL (3 mL) pen Inject 8 Units subcutaneously daily with breakfast AND 3 Units daily with lunch AND 6 Units daily with dinner. Will switch from Novolog to Fiasp in 2023.. losartan (COZAAR) 50 mg tablet take 1 tablet by mouth once daily amLODIPine (NORVASC) 10 mg tablet Take 1 tablet by mouth once daily. Dose change, take 1 daily insulin glargine (BASAGLAR KWIKPEN U-100 INSULIN) 100 unit/mL (3 mL) Inject 14 Units subcutaneously daily at bedtime. clopidogrel (PLAVIX) 75 mg tablet Take 1 tablet by mouth once daily. allopurinol (ZYLOPRIM) 100 mg tablet Take 1 tablet by mouth once daily. blood sugar diagnostic (FREESTYLE LITE STRIPS) test strip Test blood sugar(s) 3 times daily. Dx: Type 2 DM - Uncontrolled E11.65 Insulin: Yes metoprolol succinate ER (TOPROL XL) 100 mg Take 1 tablet by mouth once daily. Insulin [place], Disposable, (BD ULTRA-FINE JOHN PEN NEEDLE) 32 gauge x Use one needle for each dose. 1x/day. Cholecalciferol, Vitamin D3, 25 mcg (1,000 unit) cap Take 1 capsule by mouth once daily. (1000 to 2000 IU daily fine) aspirin 81 mg chewable tablet Take 1 tablet by mouth once daily. white petrolatum-mineral oil (SYSTANE NIGHTTIME) 94-3 % ophthalmic ointment Use 1 application in both eyes daily at bedtime. RESTASIS 0.05 % ophthalmic emulsion Use 1 Drop in both eyes twice daily. calcium carbonate 600 mg-cholecalciferol 400 units 600 mg-10 mcg (400 unit) tab Take 1 tablet by mouth once daily. empagliflozin (JARDIANCE) 10 mg tablet Take 1 tablet by mouth daily with breakfast. (Patient not taking: Reported on 01/11/2024) No current facility-administered medications for this visit. ALLERGIES Allergen Reactions Bactrim [Sulfametho* Vomiting Codeine Vomiting Prednisone Vomiting Statins [Statins-Hm* Intolerance Ultram [Tramadol Hc* Vomiting FAMILY HISTORY Problem Relation Age of Onset Heart Mother mi Heart Father heart disease Diabetes Maternal Uncle Cancer Brother Mouth (non smoker) Social History Tobacco Use Smoking status: Never Smokeless tobacco: Never Vaping Use Vaping Use: Never used Substance Use Topics Alcohol use: No Drug use: No Review of Systems Objective BP (P) 149/80 (BP Site: Left Arm, BP Position: Sitting, BP Cuff Size: Regular Adult) Resp (P) 16 Ht (P) 157.5 cm (5' 2) Wt (P) 76.2 kg (168 lb) BMI (P) 30.73 kg/m Last 5 Encounter Wt Readings: Date: Wt: 09/20/2023 77.6 kg (171 lb) 09/05/2023 78 kg (172 lb) 08/23/2023 75.8 kg (167 lb) 08/14/2023 75.8 kg (167 lb) 07/21/2023 74.8 kg (165 lb) No waist measurement recorded Estimated body mass index is 30.73 kg/m (pended) as calculated from the following: Height as of this encounter: (P) 157.5 cm (5' 2). Weight as of this encounter: (P) 76.2 kg (168 lb). Last 5 Encounter BP Readings: Date: BP: 09/20/2023 145/68[bp average[ 09/05/2023 156/68 08/23/2023 160/77[bp average[ 08/14/2023 150/80 07/21/2023 152/94 01/11/24 1250 01/11/24 1354 BP: (P) 149/80 128/68 BP Site: (P) Left Arm BP Position: (P) Sitting BP Cuff Size: (P) Regular Adult Resp: (P) 16 Weight: (P) 76.2 kg (168 lb) Height: (P) 157.5 cm (5' 2) Physical Exam Vitals reviewed. Constitutional: Appearance: She is well-developed. HENT: Head: Normocephalic and atraumatic. Right Ear: External ear normal. Left Ear: External ear normal. Nose: Nose normal. Eyes: Conjunctiva/sclera: Conjunctivae normal. Neck: Thyroid: No thyromegaly. Cardiovascular: Rate and Rhythm: Normal rate and regular rhythm. Pulses: Normal pulses. Heart sounds: Normal heart sounds. No murmur heard. No friction rub. No gallop. Pulmonary: Effort: Pulmonary effort is normal. Breath sounds: Normal breath sounds. Abdominal: General: Bowel sounds are normal. There is no distension. Palpations: Abdomen is soft. There is no mass. Tenderness: There is no abdominal tenderness. Musculoskeletal: General: No deformity. Normal range of motion. Right lower le+ Pitting Edema present. Left lower le+ Pitting Edema present. Lymphadenopathy: Cervical: No cervical adenopathy. Skin: General: Skin is warm and dry. Coloration: Skin is not jaundiced or pale. Findings: No rash. Neurological: General: No focal deficit present. Mental Status: She is alert and oriented to person, place, and time. Cranial Nerves: No cranial nerve deficit. Sensory: No sensory deficit. Motor: No abnormal muscle tone. Coordination: Coordination normal. Deep Tendon Reflexes: Reflexes normal. Psychiatric: Mood and Affect: Mood normal. Behavior: Behavior normal. Thought Content: Thought content normal. Judgment: Judgment normal. Feet:Shoes and socks removed, No deformities, ulcers, calluses, normal distal pulses, and sensitive to 10 gm monofilament Component Latest Ref Rng & Units 01/06/2023 08/24/2023 11/26/2023 12/24/2023 01/10/2024 WBC 3.70 - 11.00 k/uL 8.57 10.64 8.20 RBC 3.90 - 5.20 m/uL 3.91 4.12 4.45 Hemoglobin 11.5 - 15.5 g/dL 11.7 12.4 13.2 Hematocrit 36.0 - 46.0 % 37.1 38.4 40.5 MCV 80.0 - 100.0 fL 94.9 93.2 91.0 MCH 26.0 - 34.0 pg 29.9 30.1 29.7 MCHC 30.5 - 36.0 g/dL 31.5 32.3 32.6 RDW-CV 11.5 - 15.0 % 14.3 13.8 13.9 Platelet Count 150 - 400 k/uL 295 263 246 MPV 9.0 - 12.7 fL 11.2 11.0 10.9 Neut% % 56.5 Abs Neut (ANC) 1.45 - 7.50 k/uL 4.85 Lymph% % 34.7 Abs Lymph 1.00 - 4.00 k/uL 2.97 Bledsoe% % 6.8 Abs Bledsoe <0.87 k/uL 0.58 Eosin% % 0.8 Abs Eosin <0.46 k/uL 0.07 Baso% % 0.8 Abs Baso <0.11 k/uL 0.07 Immature Gran % % 0.4 IMMATURE GRANS (ABS) <0.10 k/uL 0.03 NRBC /100 WBC 0.0 Absolute nRBC <0.01 k/uL <0.01 <0.01 <0.01 DTYPE Auto Color Yellow Yellow Clarity Clear Clear Glucose, Urine Negative Negative Bilirubin, Urine Negative Negative Ketones, Urine Negative Negative Specific [place], Ur 1.005 - 1.030 1.020 Hemoglobin/Blood,Ur Negative 2+ (A) pH, Urine <8.5 5.5 Protein, Urine Negative 3+ (A) Urobilinogen 0.2-1.0 EU/dL 0.2 EU/dL Nitrites Negative Negative Leukest Negative Trace (A) WBC, Urine 0-5 /HPF >20 /HPF (A) RBC, Urine 0-2 /HPF 11-20 /HPF (A) Bacteria uL Negative uL 2,224.3 (H) Epithelial Cells /HPF Moderate Hyaline Cast 0 /LPF 0 /LPF Protein, Total 6.3 - 8.0 g/dL 7.0 6.4 7.7 Albumin 3.9 - 4.9 g/dL 3.9 4.0 4.4 Calcium 8.5 - 10.2 mg/dL 9.5 9.1 9.3 9.5 9.7 Bilirubin, Total 0.2 - 1.3 mg/dL 0.3 0.2 0.3 Alkaline Phosphatase 34 - 123 U/L 89 99 95 AST 13 - 35 U/L 19 16 20 ALT 7 - 38 U/L 14 15 19 Glucose 74 - 99 mg/dL 166 (H) 158 (H) 161 (H) 248 (H) 101 (H) BUN 7 - 21 mg/dL 31 (H) 39 (H) 42 (H) 39 (H) 52 (H) Creatinine 0.58 - 0.96 mg/dL 1.67 (H) 1.75 (H) 2.12 (H) 2.09 (H) 2.10 (H) Sodium 136 - 144 mmol/L 139 137 137 139 139 Potassium 3.7 - 5.1 mmol/L 4.6 4.1 4.4 4.4 4.6 Chloride 97 - 105 mmol/L 106 (H) 104 104 104 107 (H) CO2 22 - 30 mmol/L 18 (L) 20 (L) 22 23 20 (L) Anion Gap 9 - 18 mmol/L 15 13 11 12 12 eGFR >=60 mL/min/1.73m 30 (L) 28 (L) 22 (L) 23 (L) 23 (L) Cholesterol, Total <200 mg/dL 213 (H) 152 Triglyceride <150 mg/dL 273 (H) 269 (H) HDL Cholesterol >39 mg/dL 48 45 Non HDL Cholesterol <130 mg/dL 165 (H) 107 Fasting Time hrs 12 8 VLDL Cholesterol <30 mg/dL 55 (H) 54 (H) TC:HDL Ratio <5.10 4.44 3.38 LDL Cholesterol <100 mg/dL 110 (H) 53 LDL:HDL Ratio <2.54 2.29 1.18 Creatinine, Ur Random (UCRR) 20.0 - 300.0 mg/dL 96.2 135.3 109.6 Albumin, Urine Random mg/L 2,563.7 2,962.6 1,763.0 Albumin/Creat Ratio <30 mg/g 2,665 (H) 2,190 (H) 1,609 (H) Hemoglobin A1C 4.3 - 5.6 % 7.8 (H) 7.8 (H) 7.8 (H) Estimated Average Glucose mg/dL 177 177 177 Vitamin D 25 Hydroxy 31.0 - 80.0 ng/mL 30.4 (L) 38.2 Uric Acid 2.5 - 6.6 mg/dL 5.4 6.5 5.8 NT Pro BNP <450 pg/mL 2,517 (H) 2,064 (H) Assessment and Plan Encounter Diagnosis ICD-10-CM 1. Type 2 diabetes mellitus with stage 3b chronic kidney disease, with long-term current use of insulin (HCC) E11.22 HGB A1C N18.32 COMP METABOLIC PANEL Z79.4 Fair control. Continue present management 2. Macroalbuminuric diabetic nephropathy (HCC) E11.21 Continue present management. Stay hydrated 3. Vitamin D deficiency E55.9 VITAMIN D 25 HYDROXY Continue to adjust vitamin D intake as needed 4. Congestive heart failure, unspecified HF chronicity, unspecified heart failure type (HCC) I50.9 Stable; able to do normal daily acitivites. Slowed down with age 5. Postmenopausal bleeding N95.0 Not usre if from Jardiance. Check with pharmacist and decide if need to pursue evaluation 6. Mixed hyperlipidemia E78.2 LDL improved; HDL also good. TG still 200s. Continue present management. Work on diet and exercise 7. Hyperuricemia E79.0 Continue present management 8. Bilateral leg edema R60.0 Continue present management 9. Hypertension goal BP (blood pressure) < 150/90 I10 COMP METABOLIC PANEL CBC Improved on recheck. Continue same med management 10. Chronic renal disease, stage IV (HCC) N18.4 Stable. Continue present management 11. Paroxysmal atrial fibrillation (HCC) I48.0 Rate controlled. Continue present management 12. Encounter for long-term current use of medication Z79.899 HGB A1C COMP METABOLIC PANEL CBC VITAMIN D 25 HYDROXY Patient here for yearly exam and follow up. Above issues addressed with patient. Patient involved in shared decision making for management of medical issues. History and medications reviewed. Epic updated as needed Refills taken care of and meds adjusted as indicated after reviewed history, exam and labs. Health Maintenance reviewed. Updated record and/or ordered tests as recorded. Encouraged on efforts at healthy diet and regular exercise and adequate sleep. Anju Pearce MD documented in this encounter [facility] 12-26-2023 History of Present illness Narrative Images from the original note were not included. Heart Failure Medication Optimization: Pharmacist Visit CC (Reason for Consult): (I50.9) Congestive heart failure, unspecified HF chronicity, unspecified heart failure type (HCC) (primary encounter diagnosis) Last Collaborating Cardiology Provider Visit: 09/20/23 Concha Woodward is a 88 year old female presenting for follow up visit telephone call. Patient consents to pharmacy collaborative practice agreement. Patient was previously diagnosed with HFrEF:EF 30% (Dec 2019 ECHO). Interval Events: 0 ED visits or hospitalizations since last seen No HF exacerbations that patient recalls HPI: Did restart Jardiance, restarted last time we spoke several weeks ago. Not having any side effects from the medication. Hasn't noticed any change in urination. No s/sx of UTI or yeast infections. Med was expensive with deductible, should not be as expensive with next fill. FBG today was 98. Feels things are going OK with HF. Started going to [facility] and exercising more. 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 Past medical history reviewed. ROS: denies shortness of breath at rest and on exertion (orthopnea, PND, bendopnea, wheezing/coughing). denies symptoms of edema (abdominal, early satiety, lower extremity). denies CP, palpitations, SANTOS, blurred vision. denies dizziness, lightheadedness, syncope. DIET: Sodium restriction: Yes - tries to watch salt intake Fluid restriction: No ALLERGIES Allergen Reactions Bactrim [Sulfametho* Vomiting Codeine Vomiting Prednisone Vomiting Statins [Statins-Hm* Intolerance Ultram [Tramadol Hc* Vomiting Current Outpatient Medications Medication Sig rosuvastatin (CRESTOR) 5 mg tablet take 1 tablet by mouth once daily as directed insulin aspart U-100 (NOVOLOG FLEXPEN U-100 INSULIN) 100 unit/mL (3 mL) Take 8 units with breakfast, 3 units with lunch, and 6 units with dinner. Will be switching to Fiasp in 2023. insulin aspart, niacinamide, (FIASP FLEXTOUCH U-100 INSULIN) 100 unit/mL (3 mL) pen Inject 8 Units subcutaneously daily with breakfast AND 3 Units daily with lunch AND 6 Units daily with dinner. Will switch from Novolog to Fiasp in 2023.. empagliflozin (JARDIANCE) 10 mg tablet Take 1 tablet by mouth daily with breakfast. losartan (COZAAR) 50 mg tablet take 1 tablet by mouth once daily amLODIPine (NORVASC) 10 mg tablet Take 1 tablet by mouth once daily. Dose change, take 1 daily insulin glargine (BASAGLAR KWIKPEN U-100 INSULIN) 100 unit/mL (3 mL) Inject 14 Units subcutaneously daily at bedtime. clopidogrel (PLAVIX) 75 mg tablet Take 1 tablet by mouth once daily. allopurinol (ZYLOPRIM) 100 mg tablet Take 1 tablet by mouth once daily. blood sugar diagnostic (FREESTYLE LITE STRIPS) test strip Test blood sugar(s) 3 times daily. Dx: Type 2 DM - Uncontrolled E11.65 Insulin: Yes metoprolol succinate ER (TOPROL XL) 100 mg Take 1 tablet by mouth once daily. Insulin [place], Disposable, (BD ULTRA-FINE JOHN PEN NEEDLE) 32 gauge x Use one needle for each dose. 1x/day. Cholecalciferol, Vitamin D3, 25 mcg (1,000 unit) cap Take 1 capsule by mouth once daily. (1000 to 2000 IU daily fine) aspirin 81 mg chewable tablet Take 1 tablet by mouth once daily. white petrolatum-mineral oil (SYSTANE NIGHTTIME) 94-3 % ophthalmic ointment Use 1 application in both eyes daily at bedtime. RESTASIS 0.05 % ophthalmic emulsion Use 1 Drop in both eyes twice daily. calcium carbonate 600 mg-cholecalciferol 400 units 600 mg-10 mcg (400 unit) tab Take 1 tablet by mouth once daily. No current facility-administered medications for this visit. VITALS: Last 3 Encounter BP Readings: Date: BP: 09/20/2023 145/68[bp average[ 09/05/2023 156/68 08/23/2023 160/77[bp average[ Last 3 Encounter Wt Readings: Date: Wt: 09/20/2023 77.6 kg (171 lb) 09/05/2023 78 kg (172 lb) 08/23/2023 75.8 kg (167 lb) HOME BLOOD PRESSURE AND PULSE READINGS: Hasn't checked BP for a long time LABS: reviewed CMP: Glucose 248 12/24/2023 BUN 39 12/24/2023 Creatinine, Blood 2.09 12/24/2023 Sodium (I-STAT) 139 12/24/2023 Potassium (I-STAT) 4.4 12/24/2023 Albumin 4.0 08/24/2023 Calcium 9.5 12/24/2023 AST (SGOT) 16 08/24/2023 ALT (SGPT) 15 08/24/2023 * I have personally reviewed all lab testing. Guideline Directed Medical Therapy Current GDMT score: 5 NYHA class - not classified ISABELLA/ARB/ARNI YES - losartan Dose titration in progress Beta Shravan YES - metoprolol succinate ER Dose titration in progress Aldosterone antagonist NO Not taking due to renal function SGLT2i 2 YES - empagliflozin Target dose achieved Hydralazine/Isosorbide Dinitrate NO Not indicated Ivabradine NO Not indicated ASSESSMENT/PLAN: 1. Congestive heart failure, unspecified HF chronicity, unspecified heart failure type (HCC) - ICD9: 428.0, ICD10: I50.9 - HFrEF <=40; proBNP improved with initiation of Jardiance; tolerating well; no change to kidney fxn; labs suggest slight dehydration; no f/up with PharmD needed at this time - will have patient continue HF management with PCP team and industrial training specialist - Continue current medications - Encouraged drinking sufficient water - Advised to call office if cost issues with Jardiance or ADEs - Hasn't had industrial training specialist visit in very long time --> advised to make a priority and get appt scheduled The patient verbalized understanding of the instructions. Patient taking SGLT2-I at conclusion of visit: Yes Follow up: See patient instructions The majority of the pharmacy visit (> 50%) was spent counseling and/or coordinating care for the patient. Time was 16 minutes. documented in this encounter [facility] 12-12-2023 Miscellaneous Notes Returned call to patient. States she has not met her deductible for 2023. Cost of Jardiance is >$400. Says her deductible is ~$500. Said her first script was $155. Did start Jardiance about 1 week ago. No side effects. Trying to drink more water. F/up with PharmD currently scheduled for 12/19, is planning to get labs on Sunday, 12/17. Informed her there is nothing our office can do about a deductible. Advised her to call her insurance to confirm deductible and what the cost of Jardiance will be once deductible is met. Also advised to ask if Farxiga would be cheaper --> can switch if more affordable. Postponed PharmD visit 1 more week so patient can be on Jardiance for ~3 weeks prior to f/up labs (to get labs 12/24 or 12/25). Advised pt to contact PharmD with other issues or if needs to switch to Farxiga. Keiry Hardy PharmD, [facility] Primary Care Clinical Pharmacist Pt is calling regarding the cost of Jardiance going up. Pt asking about a different tier of medication. Pt asking if she can speak directly to pharm Keiry. Radha Sharma LPN documented in this encounter [facility] 12-06-2023 Miscellaneous Notes Okayed Patient has been identified by name and date of : Yes Patient phones for refill(s): Requested Prescriptions Pending Prescriptions Disp Refills rosuvastatin (CRESTOR) 5 mg tablet [Pharmacy Med Name: ROSUVASTATIN CALCIUM 5 MG TAB] 90 tablet 3 Sig: take 1 tablet by mouth once daily as directed Date of last office visit in primary care: 09/20/2023 Date of next office visit in primary care: 01/11/2024 Please advise. Thank you. Charlotte Nava LPN. documented in this encounter [facility] 10-04-2023 Miscellaneous Notes Spoke with patient. Given message from provider's office. Patient verbalizes understanding. Julieta Guerrero RN Fiasp another brand of insulin like Humalog and Novolog. Of course would prescribe formulary covered equivalent. Sent in so can fill when needed in November The following approved medication requests have been transmitted electronically. Requested Prescriptions Signed Prescriptions Disp Refills insulin aspart, niacinamide, (FIASP FLEXTOUCH U-100 INSULIN) 100 unit/mL (3 mL) pen 15 Each 3 Sig: Inject 8-12 Units subcutaneously daily with breakfast AND 6 Units daily with lunch AND 10 Units daily with dinner. Authorizing Provider: ANJU PEARCE MD Pt called again to check the status. She would like to hear from Ishmael Davis or Dr. Pearce office about this to ease her mind that it will get ordered timely at the beginning of the year. Pt calling to check on status of request. Advised her has been sent to pcp but not reviewed yet. Pt verbalizes understanding. Pt will keep checking with office. Eduin Alva LPN Patient reports the new insulin is spelled Flasp. Looked it up and it is spelled Fiasp. Reports insurance will no longer cover novolog in the new year, but they will cover the insulin, Fiasp, instead. Reports she just opened a new box of 4 novolog pens. Patient is anxious to know pcp will approve this. Asking office to phone her to let her know it will be approved by pcp. Patient's daughter calling to let PCP know that patient's insurance is going to require she change from Novolog Insulin to Fiasp in November. She is asking if there is any problem with this? Julieta Guerrero, RITA documented in this encounter [facility] 10-01-2023 Miscellaneous Notes Patient calling stating she wants to add her daughter Aristeo Saunders and son-in-law Homero Saunders to her chart to be able to discuss her medical information with them. She gives permission to talk to them regarding any of her medical information. Chart has been updated per pt's request. Eduin Alva LPN documented in this encounter [facility] 09-20-2023 Instructions Ishmael Davis APRN.BRICK CLEANER - 09/20/2023 1:39 PM EST Increase fluid intake, aim for 64 ounces of fluid daily. Make an appointment with [facility] documented in this encounter [facility] 09-20-2023 History of Present illness Narrative SUBJECTIVE: Hepatitis B Vaccine(1 of 3 - Risk 3-dose series) Never done Diabetic Foot Exam due on 10/21/2022 Covid-19 Vaccine( season) due on 07/06/2023 Dilated Retinal Exam due on 10/02/2023 HPI Concha Woodward is a 88 year old female. PMH significant for ACTIVE PROBLEM LIST Hypertension Goal Bp (Blood Pressure) < 150/90 Pure Hypercholesterolemia Osteopenia History of Gout Type 2 Diabetes Mellitus With Stage 3b Chronic Kidney Disease, With Long-Term Current Use of Insulin (Hcc) History of Cva (Cerebrovascular Accident) Hyperuricemia Diarrhea, Unspecified S/P Cabg X 4 Stage 3b Chronic Kidney Disease (Hcc) Hypertensive Kidney Disease With Stage 3b Chronic Kidney Disease (Hcc) Obesity, Class I, Bmi 30-34.9 Congestive Heart Failure, Unspecified Hf Chronicity, Unspecified Heart Failure Type (Hcc) Chronic Renal Disease, Stage IV (Hcc) Paroxysmal Atrial Fibrillation With Rapid Ventricular Response (Hcc) Presents for blood pressure follow-up visit. She has CAD s/p CAB years ago, [facility] following. No recent visit. CP/SOB: none. stable Hemoglobin A1C (%) Date Value 08/24/2023 7.8 01/06/2023 7.8 09/15/2021 7.4 05/23/2021 7.5 ) HTN: She notes tolerating addition of losartan well. No adverse effects noted. Without report of headache, chest pain, palpitations, dyspnea, peripheral edema, orthopnea, fatigue and PND. Last 14 Encounter BP Readings: Date: BP: 09/20/2023 145/68[bp average[ 09/05/2023 156/68 08/23/2023 160/77[bp average[ 08/14/2023 150/80 07/21/2023 152/94 01/09/2023 122/72 01/01/2023 148/71 06/25/2022 142/78 05/24/2022 130/70 01/05/2022 142/82 10/21/2021 158/80 05/25/2021 136/74[Repeat BP[ 01/03/2021 140/58 08/30/2020 118/66 Hyperlipidemia. Ms. Woodward reports doing well on current therapy Her most recent lipid panels are: Cholesterol, Total (mg/dL) Date Value 01/06/2023 213 05/17/2022 238 01/01/2021 210 08/25/2020 240 HDL Cholesterol (mg/dL) Date Value 01/06/2023 48 05/17/2022 48 01/01/2021 47 08/25/2020 49 LDL Cholesterol (mg/dL) Date Value 01/06/2023 110 05/17/2022 135 01/01/2021 104 08/25/2020 132 Triglyceride (mg/dL) Date Value 01/06/2023 273 05/17/2022 275 01/01/2021 293 08/25/2020 294 Review of Systems Constitutional: Positive for fatigue. Respiratory: Negative. Cardiovascular: Negative. Endocrine: Negative. Objective BP 145/68 Pulse 75 Resp 16 Wt 77.6 kg (171 lb) BMI 30.29 kg/m Physical Exam Vitals and nursing note reviewed. Constitutional: Appearance: Normal appearance. HENT: Head: Normocephalic and atraumatic. Eyes: Conjunctiva/sclera: Conjunctivae normal. Neck: Thyroid: No thyromegaly. Vascular: Normal carotid pulses. No JVD. Cardiovascular: Rate and Rhythm: Normal rate and regular rhythm. Pulses: Normal pulses. Carotid pulses are 2+ on the right side and 2+ on the left side. Radial pulses are 2+ on the right side and 2+ on the left side. Heart sounds: Normal heart sounds. Pulmonary: Effort: Pulmonary effort is normal. Breath sounds: Normal breath sounds. Abdominal: General: Bowel sounds are normal. Musculoskeletal: Right lower leg: No edema. Left lower leg: No edema. Skin: General: Skin is warm and dry. Neurological: Mental Status: She is alert. Mental status is at baseline. ALLERGIES Allergen Reactions Bactrim [Sulfametho* Vomiting Codeine Vomiting Prednisone Vomiting Statins [Statins-Hm* Intolerance Ultram [Tramadol Hc* Vomiting MEDICATIONS insulin lispro (HUMALOG KWIKPEN INSULIN) 100 unit/mL Inject 8-12 Units subcutaneously daily with breakfast AND 6 Units daily with lunch AND 10 Units daily with dinner. losartan (COZAAR) 50 mg tablet take 1 tablet by mouth once daily amLODIPine (NORVASC) 10 mg tablet Take 1 tablet by mouth once daily. Dose change, take 1 daily insulin glargine (BASAGLAR KWIKPEN U-100 INSULIN) 100 unit/mL (3 mL) Inject 14 Units subcutaneously daily at bedtime. clopidogrel (PLAVIX) 75 mg tablet Take 1 tablet by mouth once daily. allopurinol (ZYLOPRIM) 100 mg tablet Take 1 tablet by mouth once daily. insulin aspart U-100 (NOVOLOG FLEXPEN U-100 INSULIN) 100 unit/mL (3 mL) Take 8-12 units breakfast, 6 units lunch, and 10 units dinner (Patient taking differently: Inject 4 Units subcutaneously three times a day before meals. Take 9 units breakfast, 4 units lunch, and 7 units dinner) blood sugar diagnostic (FREESTYLE LITE STRIPS) test strip Test blood sugar(s) 3 times daily. Dx: Type 2 DM - Uncontrolled E11.65 Insulin: Yes metoprolol succinate ER (TOPROL XL) 100 mg Take 1 tablet by mouth once daily. rosuvastatin (CRESTOR) 5 mg tablet Take 1 tablet by mouth once daily. As directed Insulin [place], Disposable, (BD ULTRA-FINE JOHN PEN NEEDLE) 32 gauge x Use one needle for each dose. 1x/day. Cholecalciferol, Vitamin D3, 25 mcg (1,000 unit) cap Take 1 capsule by mouth once daily. (1000 to 2000 IU daily fine) aspirin 81 mg chewable tablet Take 1 tablet by mouth once daily. white petrolatum-mineral oil (SYSTANE NIGHTTIME) 94-3 % ophthalmic ointment Use 1 application in both eyes daily at bedtime. RESTASIS 0.05 % ophthalmic emulsion Use 1 Drop in both eyes twice daily. calcium carbonate 600 mg-cholecalciferol 400 units 600 mg-10 mcg (400 unit) tab Take 1 tablet by mouth once daily. 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 Ortiz Stroke (cerebrum) ([facility]) 2013 Type II or unspecified type diabetes mellitus without mention of complication, uncontrolled Unspecified cardiovascular disease Unspecified essential hypertension Urgency of urination 2008 Social History Tobacco Use Smoking status: Never Smokeless tobacco: Never Vaping Use Vaping Use: Never used Substance Use Topics Alcohol use: No Drug use: No Component Latest Ref Rng & Units 01/06/2023 08/24/2023 WBC 3.70 - 11.00 k/uL 8.57 10.64 RBC 3.90 - 5.20 m/uL 3.91 4.12 Hemoglobin 11.5 - 15.5 g/dL 11.7 12.4 Hematocrit 36.0 - 46.0 % 37.1 38.4 MCV 80.0 - 100.0 fL 94.9 93.2 MCH 26.0 - 34.0 pg 29.9 30.1 MCHC 30.5 - 36.0 g/dL 31.5 32.3 RDW-CV 11.5 - 15.0 % 14.3 13.8 Platelet Count 150 - 400 k/uL 295 263 MPV 9.0 - 12.7 fL 11.2 11.0 Neut% % 56.5 Abs Neut (ANC) 1.45 - 7.50 k/uL 4.85 Lymph% % 34.7 Abs Lymph 1.00 - 4.00 k/uL 2.97 Bledsoe% % 6.8 Abs Bledsoe <0.87 k/uL 0.58 Eosin% % 0.8 Abs Eosin <0.46 k/uL 0.07 Baso% % 0.8 Abs Baso <0.11 k/uL 0.07 Immature Gran % % 0.4 IMMATURE GRANS (ABS) <0.10 k/uL 0.03 NRBC /100 WBC 0.0 Absolute nRBC <0.01 k/uL <0.01 <0.01 DTYPE Auto Protein, Total 6.3 - 8.0 g/dL 7.0 6.4 Albumin 3.9 - 4.9 g/dL 3.9 4.0 Calcium 8.5 - 10.2 mg/dL 9.5 9.1 Bilirubin, Total 0.2 - 1.3 mg/dL 0.3 0.2 Alkaline Phosphatase 34 - 123 U/L 89 99 AST 13 - 35 U/L 19 16 ALT 7 - 38 U/L 14 15 Glucose 74 - 99 mg/dL 166 (H) 158 (H) BUN 7 - 21 mg/dL 31 (H) 39 (H) Creatinine 0.58 - 0.96 mg/dL 1.67 (H) 1.75 (H) Sodium 136 - 144 mmol/L 139 137 Potassium 3.7 - 5.1 mmol/L 4.6 4.1 Chloride 97 - 105 mmol/L 106 (H) 104 CO2 22 - 30 mmol/L 18 (L) 20 (L) Anion Gap 9 - 18 mmol/L 15 13 eGFR >=60 mL/min/1.73m 30 (L) 28 (L) Cholesterol, Total <200 mg/dL 213 (H) Triglyceride <150 mg/dL 273 (H) HDL Cholesterol >39 mg/dL 48 Non HDL Cholesterol <130 mg/dL 165 (H) Fasting Time hrs 12 VLDL Cholesterol <30 mg/dL 55 (H) TC:HDL Ratio <5.10 4.44 LDL Cholesterol <100 mg/dL 110 (H) LDL:HDL Ratio <2.54 2.29 Creatinine, Ur Random (UCRR) 20.0 - 300.0 mg/dL 96.2 135.3 Albumin, Urine Random mg/L 2,563.7 2,962.6 Albumin/Creat Ratio <30 mg/g 2,665 (H) 2,190 (H) Hemoglobin A1C 4.3 - 5.6 % 7.8 (H) 7.8 (H) Estimated Average Glucose mg/dL 177 177 Vitamin D 25 Hydroxy 31.0 - 80.0 ng/mL 30.4 (L) 38.2 Uric Acid 2.5 - 6.6 mg/dL 5.4 6.5 ASSESSMENT/PLAN: 1. . Hypertension goal BP (blood pressure) < 150/90 - ICD9: 401.9, ICD10: I10 Blood pressure is controlled. Endorse continue on with current medications unchanged. Has not recently seen [facility] cardiology. Endorse scheduling an appointment to reestablish care. Echocardiogram completed 2019 at [facility] showed LVEF 30%. [facility] 2019. S/P CABG CHAUDHARI-Dx, LAD; SVG-OM Cx, SVG-RCA Return to clinic 1 month for recheck of blood pressure. 2. Type 2 diabetes mellitus with stage 3b chronic kidney disease, with long-term current use of insulin (HCC) - ICD9: 250.40, 585.3, V58.67, ICD10: E11.22, N18.32, Z79.4 (primary diagnosis) Controlled, continue with current medication unchanged 2. Chronic renal disease, stage IV (HCC) - ICD9: 585.4, ICD10: N18.4 Stable, Endorse sufficient fluid intake 3. Hypertension goal BP (blood pressure) < 150/90 - ICD9: 401.9, ICD10: I10 4. Macroalbuminuric diabetic nephropathy (HCC) - ICD9: 250.40, 583.81, ICD10: E11.21 Continue with losartan. Consider addition of Jardiance or similar at later date. 5. Congestive heart failure, unspecified HF chronicity, unspecified heart failure type (HCC) - ICD9: 428.0, ICD10: I50.9 Continue with current treatment unchanged for now. Schedule follow-up with cardiology, [facility]. Ishmael Davis APRN.BRICK CLEANER Medical Decision Making: Problems: Moderate: 2+ stable chronic illnesses Risk: Moderate: Drug management Medical Decision Making Level: 4 - Moderate documented in this encounter [facility] 09-13-2023 Miscellaneous Notes Spoke with pt and information listed below given. Pt verbalizes understanding. Angelica Rogel LPN The following approved medication requests have been transmitted electronically. Requested Prescriptions Signed Prescriptions Disp Refills insulin lispro (HUMALOG KWIKPEN INSULIN) 100 unit/mL 15 mL 3 Sig: Inject 8-12 Units subcutaneously daily with breakfast AND 6 Units daily with lunch AND 10 Units daily with dinner. Authorizing Provider: ANJU PEARCE Refused Prescriptions Disp Refills insulin aspart U-100 (NOVOLOG FLEXPEN U-100 INSULIN) 100 unit/mL (3 mL) 15 mL 3 Sig: INJECT 8-12 UNITS SUBCUTANEOUSLY WITH BREAKFAST AND 6 UNITS WITH LUNCH AND 10 UNITS WITH DINNER Refused By: ANJU PEARCE Reason for Refusal: A Refill not appropriate Anju Pearce MD Per Aruna/Ben, Pharmacy checked printing and stamping supervisor website, Novolog is on backorder. Requesting an alternative be sent. Charlotte Nava LPN documented in this encounter [facility] 09-10-2023 Miscellaneous Notes Pharmacy is requesting 90 day supply. Charlotte Nava LPN documented in this encounter [facility] 09-05-2023 History of Present illness Narrative SUBJECTIVE Concha Woodward is a 88 year old female here today for a check up on her medical problems. Chief Complaint Patient presents with: Blood Pressure: check HPI Concha Woodward is a 88 year old female. Here today for blood pressure follow up. Blood pressure has been high. No symptoms. Saw Dr. Pearce and then Ishmael. On norvas, blood pressure still running around 170's/80's. Her medications were reviewed today and her list is now up to date. Medications Current Outpatient Medications Medication Sig amLODIPine (NORVASC) 10 mg tablet Take 1 tablet by mouth once daily. Dose change, take 1 daily insulin glargine (BASAGLAR KWIKPEN U-100 INSULIN) 100 unit/mL (3 mL) Inject 14 Units subcutaneously daily at bedtime. clopidogrel (PLAVIX) 75 mg tablet Take 1 tablet by mouth once daily. allopurinol (ZYLOPRIM) 100 mg tablet Take 1 tablet by mouth once daily. insulin aspart U-100 (NOVOLOG FLEXPEN U-100 INSULIN) 100 unit/mL (3 mL) Take 8-12 units breakfast, 6 units lunch, and 10 units dinner (Patient taking differently: Inject 4 Units subcutaneously three times a day before meals. Take 9 units breakfast, 4 units lunch, and 7 units dinner) metoprolol succinate ER (TOPROL XL) 100 mg Take 1 tablet by mouth once daily. rosuvastatin (CRESTOR) 5 mg tablet Take 1 tablet by mouth once daily. As directed Cholecalciferol, Vitamin D3, 25 mcg (1,000 unit) cap Take 1 capsule by mouth once daily. (1000 to 2000 IU daily fine) aspirin 81 mg chewable tablet Take 1 tablet by mouth once daily. white petrolatum-mineral oil (SYSTANE NIGHTTIME) 94-3 % ophthalmic ointment Use 1 application in both eyes daily at bedtime. RESTASIS 0.05 % ophthalmic emulsion Use 1 Drop in both eyes twice daily. calcium carbonate 600 mg-cholecalciferol 400 units 600 mg-10 mcg (400 unit) tab Take 1 tablet by mouth once daily. losartan (COZAAR) 50 mg tablet Take 1 tablet by mouth once daily. blood sugar diagnostic (FREESTYLE LITE STRIPS) test strip Test blood sugar(s) 3 times daily. Dx: Type 2 DM - Uncontrolled E11.65 Insulin: Yes Insulin [place], Disposable, (BD ULTRA-FINE JOHN PEN NEEDLE) 32 gauge x Use one needle for each dose. 1x/day. No current facility-administered medications for this visit. ALLERGIES Allergen Reactions Bactrim [Sulfametho* Vomiting Codeine Vomiting Prednisone Vomiting Statins [Statins-Hm* Intolerance Ultram [Tramadol Hc* Vomiting ACTIVE PROBLEM LIST Obesity, Class I, Bmi 30-34.9 - 01/01/2023 Stage 3b Chronic Kidney Disease (Hcc) - 01/20/2022 Hypertensive Kidney Disease With Stage 3b Chronic Kidney Disease (Hcc) - 01/20/2022 S/P Cabg X 4 - 01/09/2020 Diarrhea, Unspecified - 04/28/2019 Hyperuricemia - 01/05/2018 Type 2 Diabetes Mellitus With Stage 3b Chronic Kidney Disease, With Long-Term Current Use of Insulin (Hcc) - 08/25/2014 History of Cva (Cerebrovascular Accident) - 08/25/2014 History of Gout - 02/25/2013 Osteopenia - 05/20/2007 Comment: Last Dexa - 2006 - Femoral, -0.6, Spine, -1.3; no fractures as adult, non smoker, sister with osteoporosis. Vitamin D level - 34.4 (06/11), Pth intact, normal (06/11). Hypertension Goal Bp (Blood Pressure) < 150/90 Pure Hypercholesterolemia Comment: Multiple Statin intolerances - has been unable to take statins - myalgias Social History Tobacco Use Smoking status: Never Smokeless tobacco: Never Vaping Use Vaping Use: Never used Substance Use Topics Alcohol use: No Drug use: No Review of Systems Respiratory: Negative. Cardiovascular: Negative. Neurological: Negative. OBJECTIVE BP 156/68 Pulse 80 Wt 172 lb (78.0kg) SpO2 98% Physical Exam Vitals and nursing note reviewed. Constitutional: General: She is awake. She is not in acute distress. Appearance: Normal appearance. She is well-developed and well-groomed. She is not ill-appearing, toxic-appearing or diaphoretic. HENT: Head: Normocephalic. Right Ear: External ear normal. Left Ear: External ear normal. Nose: Nose normal. Eyes: General: Vision grossly intact. Conjunctiva/sclera: Conjunctivae normal. Pupils: Pupils are equal, round, and reactive to light. Neck: Vascular: No JVD. Trachea: Trachea normal. Cardiovascular: Rate and Rhythm: Normal rate and regular rhythm. Pulses: Normal pulses. Heart sounds: Normal heart sounds. No murmur heard. Pulmonary: Effort: Pulmonary effort is normal. No accessory muscle usage, prolonged expiration or respiratory distress. Breath sounds: Normal breath sounds. Musculoskeletal: Cervical back: Neck supple. Skin: General: Skin is warm and dry. Capillary Refill: Capillary refill takes less than 2 seconds. Neurological: General: No focal deficit present. Mental Status: She is alert and oriented to person, place, and time. Mental status is at baseline. Psychiatric: Attention and Perception: Attention and perception normal. Mood and Affect: Mood and affect normal. Speech: Speech normal. Behavior: Behavior normal. Behavior is cooperative. Thought Content: Thought content normal. Cognition and Memory: Cognition and memory normal. Judgment: Judgment normal. ASSESSMENT/PLAN: 1. Hypertension goal BP (blood pressure) < 150/90 - ICD9: 401.9, ICD10: I10 (primary diagnosis) - Improving control slowly - Start losartan - Recommend home blood pressure monitoring, to bring results to next visit - Encouraged sodium restriction, DASH or Mediterranean diet - Recommend regular aerobic exercise - Reviewed risks of hypertension and principles of treatment - Keep follow up in 2 weeks for recheck - LOSARTAN 50 MG TABLET 2. Type 2 diabetes mellitus with stage 3b chronic kidney disease, with long-term current use of insulin (HCC) - ICD9: 250.40, 585.3, V58.67, ICD10: E11.22, N18.32, Z79.4 - LOSARTAN 50 MG TABLET 3. Hypertensive kidney disease with stage 3b chronic kidney disease (HCC) - ICD9: 403.90, 585.3, ICD10: I12.9, N18.32 - LOSARTAN 50 MG TABLET Portions of this note have been entered by ancillary staff. I have reviewed and when necessary edited, so that they are an adequate record of my encounter with this patient Please note that parts of this document were created using voice recognition software and therefore may contain grammatical errors. Patient verbalizes understanding of instructions from today's visit and in agreement with treatment plan. Questions answered. Agrees to call the office if questions, concerns of issues with acute symptoms not improving or if they worsen. See diagnoses and orders for additional plan(s). Allergies and medications were reviewed, list was updated, and refills given if needed. Past medical, surgical, social, and family history reviewed and updated as appropriate. Encouraged proper diet & exercise as well as compliance with taking medications. Age-appropriate health preventative measures were discussed. Return if symptoms worsen or fail to improve, for Keep next scheduled appointment.. Iesha Waddell APRN-DAYANA documented in this encounter [facility] 09-03-2023 Miscellaneous Notes Pt taking 10 mg daily. Scheduled appt for Wed. Daksha Rivera Ma Check to see if taking amlodipine 5 mg daily or amlodipine 10 mg daily. If taking amlodipine 5 mg, increase to 10 mg. If she would like she can come in for a BP check this week, schedule if wanting to do so. This can help with adjusting her medications. Patient notified of results and provider's instructions. Patient verbalizes understanding. If provider feels like patient would benefit from an ISABELLA or ARB patient is willing to try this. Patient states for the past week her blood pressure has been terrible. Blood pressure was 185/72 this morning. [facility]. Miriam Pepe RN CBC, vitamin D and uric acid are normal. Metabolic panel in acceptable range except for some elevation of glucose and BUN and creatinine. Recommend fluid intake to 64 ounces daily to help with this. Hemoglobin A1c is stable. Albumin in urine is a bit increased from previous. May want to add an ISABELLA or an ARB to her medications to help protect her kidneys Component Latest Ref Rng & Units 01/06/2023 08/24/2023 WBC 3.70 - 11.00 k/uL 8.57 10.64 RBC 3.90 - 5.20 m/uL 3.91 4.12 Hemoglobin 11.5 - 15.5 g/dL 11.7 12.4 Hematocrit 36.0 - 46.0 % 37.1 38.4 MCV 80.0 - 100.0 fL 94.9 93.2 MCH 26.0 - 34.0 pg 29.9 30.1 MCHC 30.5 - 36.0 g/dL 31.5 32.3 RDW-CV 11.5 - 15.0 % 14.3 13.8 Platelet Count 150 - 400 k/uL 295 263 MPV 9.0 - 12.7 fL 11.2 11.0 Neut% % 56.5 Abs Neut (ANC) 1.45 - 7.50 k/uL 4.85 Lymph% % 34.7 Abs Lymph 1.00 - 4.00 k/uL 2.97 Bledsoe% % 6.8 Abs Bledsoe <0.87 k/uL 0.58 Eosin% % 0.8 Abs Eosin <0.46 k/uL 0.07 Baso% % 0.8 Abs Baso <0.11 k/uL 0.07 Immature Gran % % 0.4 IMMATURE GRANS (ABS) <0.10 k/uL 0.03 NRBC /100 WBC 0.0 Absolute nRBC <0.01 k/uL <0.01 <0.01 DTYPE Auto Protein, Total 6.3 - 8.0 g/dL 7.0 6.4 Albumin 3.9 - 4.9 g/dL 3.9 4.0 Calcium 8.5 - 10.2 mg/dL 9.5 9.1 Bilirubin, Total 0.2 - 1.3 mg/dL 0.3 0.2 Alkaline Phosphatase 34 - 123 U/L 89 99 AST 13 - 35 U/L 19 16 ALT 7 - 38 U/L 14 15 Glucose 74 - 99 mg/dL 166 (H) 158 (H) BUN 7 - 21 mg/dL 31 (H) 39 (H) Creatinine 0.58 - 0.96 mg/dL 1.67 (H) 1.75 (H) Sodium 136 - 144 mmol/L 139 137 Potassium 3.7 - 5.1 mmol/L 4.6 4.1 Chloride 97 - 105 mmol/L 106 (H) 104 CO2 22 - 30 mmol/L 18 (L) 20 (L) Anion Gap 9 - 18 mmol/L 15 13 eGFR >=60 mL/min/1.73m 30 (L) 28 (L) Cholesterol, Total <200 mg/dL 213 (H) Triglyceride <150 mg/dL 273 (H) HDL Cholesterol >39 mg/dL 48 Non HDL Cholesterol <130 mg/dL 165 (H) Fasting Time hrs 12 VLDL Cholesterol <30 mg/dL 55 (H) TC:HDL Ratio <5.10 4.44 LDL Cholesterol <100 mg/dL 110 (H) LDL:HDL Ratio <2.54 2.29 Creatinine, Ur Random (UCRR) 20.0 - 300.0 mg/dL 96.2 135.3 Albumin, Urine Random mg/L 2,563.7 2,962.6 Albumin/Creat Ratio <30 mg/g 2,665 (H) 2,190 (H) Hemoglobin A1C 4.3 - 5.6 % 7.8 (H) 7.8 (H) Estimated Average Glucose mg/dL 177 177 Vitamin D 25 Hydroxy 31.0 - 80.0 ng/mL 30.4 (L) 38.2 Uric Acid 2.5 - 6.6 mg/dL 5.4 6.5 Patient calls and is asking about lab results that patient had done on 08/24/2023. Please review and advise, Miriam Pepe RN documented in this encounter [facility] 08-23-2023 Instructions Ishmael Davis APRN.CNS - 08/23/2023 3:16 PM EDT Okay to take an additional 5 mg amlodipine today Then start taking two 5 mg amlodipine until gone. Then take one 10 mg amlodipine daily Let us know if you do not feel well with the change. Puffy ankles are less common side effect with this medication. Check lab work this week Schedule appointment with cardiology documented in this encounter [facility] 08-23-2023 History of Present illness Narrative SUBJECTIVE: Hepatitis B Vaccine(1 of 3 - Risk 3-dose series) Never done RSV Vaccine(1 - 1-dose 60+ series) Never done Diabetic Foot Exam due on 10/21/2022 Covid-19 Vaccine(2022- season) due on 07/06/2023 HbA1C due on 07/09/2023 PK Concha Woodward is a 88 year old female. PMH significant for ACTIVE PROBLEM LIST Hypertension Goal Bp (Blood Pressure) < 150/90 Pure Hypercholesterolemia Osteopenia History of Gout Type 2 Diabetes Mellitus With Stage 3b Chronic Kidney Disease, With Long-Term Current Use of Insulin (Hcc) History of Cva (Cerebrovascular Accident) Hyperuricemia Diarrhea, Unspecified S/P Cabg X 4 Stage 3b Chronic Kidney Disease (Hcc) Hypertensive Kidney Disease With Stage 3b Chronic Kidney Disease (Hcc) Obesity, Class I, Bmi 30-34.9 She reports fatigue since Covid19 one month ago. She has CAD s/p CAB years ago, [facility] following. No recent visit. CP/SOB: none stable DIABETES MELLITUS: She reports home glucose readings have been controlled. No report of excessive thirst or increased frequency of urination, chest pain or dyspnea , numbness, tingling or pain in extremities, new or unusual visual symptoms, low sugar/hypoglycemic reactions, weight loss/gain, lightheadedness/dizziness and bowel changes/loose stools. Patient's last HgA1C was Hemoglobin A1C (%) Date Value 01/06/2023 7.8 05/17/2022 7.1 09/15/2021 7.4 05/23/2021 7.5 ) HTN: Without report of headache, chest pain, palpitations, dyspnea, peripheral edema, orthopnea, fatigue and PND. Last 14 Encounter BP Readings: Date: BP: 08/23/2023 160/77[bp average[ 08/14/2023 150/80 07/21/2023 152/94 01/09/2023 122/72 01/01/2023 148/71 06/25/2022 142/78 05/24/2022 130/70 01/05/2022 142/82 10/21/2021 158/80 05/25/2021 136/74[Repeat BP[ 01/03/2021 140/58 08/30/2020 118/66 05/03/2020 130/70 01/03/2020 138/60 Hyperlipidemia. Ms. Woodward reports doing well on current therapy Her most recent lipid panels are: Cholesterol, Total (mg/dL) Date Value 01/06/2023 213 05/17/2022 238 01/01/2021 210 08/25/2020 240 HDL Cholesterol (mg/dL) Date Value 01/06/2023 48 05/17/2022 48 01/01/2021 47 08/25/2020 49 LDL Cholesterol (mg/dL) Date Value 01/06/2023 110 05/17/2022 135 01/01/2021 104 08/25/2020 132 Triglyceride (mg/dL) Date Value 01/06/2023 273 05/17/2022 275 01/01/2021 293 08/25/2020 294 Review of Systems Constitutional: Positive for fatigue. Respiratory: Negative. Cardiovascular: Negative. Endocrine: Negative. Objective BP 160/77 Pulse 71 Resp 16 Wt 75.8 kg (167 lb) BMI 29.58 kg/m Physical Exam Vitals and nursing note reviewed. Constitutional: Appearance: Normal appearance. HENT: Head: Normocephalic and atraumatic. Eyes: Conjunctiva/sclera: Conjunctivae normal. Neck: Thyroid: No thyromegaly. Vascular: Normal carotid pulses. No JVD. Cardiovascular: Rate and Rhythm: Normal rate and regular rhythm. Pulses: Normal pulses. Carotid pulses are 2+ on the right side and 2+ on the left side. Radial pulses are 2+ on the right side and 2+ on the left side. Heart sounds: Normal heart sounds. Pulmonary: Effort: Pulmonary effort is normal. Breath sounds: Normal breath sounds. Abdominal: General: Bowel sounds are normal. Musculoskeletal: Right lower leg: No edema. Left lower leg: No edema. Skin: General: Skin is warm and dry. Neurological: Mental Status: She is alert. Mental status is at baseline. ALLERGIES Allergen Reactions Bactrim [Sulfametho* Vomiting Codeine Vomiting Prednisone Vomiting Statins [Statins-Hm* Intolerance Ultram [Tramadol Hc* Vomiting MEDICATIONS insulin glargine (BASAGLAR KWIKPEN U-100 INSULIN) 100 unit/mL (3 mL) Inject 14 Units subcutaneously daily at bedtime. clopidogrel (PLAVIX) 75 mg tablet Take 1 tablet by mouth once daily. allopurinol (ZYLOPRIM) 100 mg tablet Take 1 tablet by mouth once daily. insulin aspart U-100 (NOVOLOG FLEXPEN U-100 INSULIN) 100 unit/mL (3 mL) Take 8-12 units breakfast, 6 units lunch, and 10 units dinner (Patient taking differently: Inject 4 Units subcutaneously three times a day before meals. Take 9 units breakfast, 4 units lunch, and 7 units dinner) blood sugar diagnostic (FREESTYLE LITE STRIPS) test strip Test blood sugar(s) 3 times daily. Dx: Type 2 DM - Uncontrolled E11.65 Insulin: Yes metoprolol succinate ER (TOPROL XL) 100 mg Take 1 tablet by mouth once daily. rosuvastatin (CRESTOR) 5 mg tablet Take 1 tablet by mouth once daily. As directed amLODIPine (NORVASC) 5 mg tablet Take 1 tablet by mouth once daily. Insulin [place], Disposable, (BD ULTRA-FINE JOHN PEN NEEDLE) 32 gauge x Use one needle for each dose. 1x/day. Cholecalciferol, Vitamin D3, 25 mcg (1,000 unit) cap Take 1 capsule by mouth once daily. (1000 to 2000 IU daily fine) aspirin 81 mg chewable tablet Take 1 tablet by mouth once daily. white petrolatum-mineral oil (SYSTANE NIGHTTIME) 94-3 % ophthalmic ointment Use 1 application in both eyes daily at bedtime. RESTASIS 0.05 % ophthalmic emulsion Use 1 Drop in both eyes twice daily. calcium carbonate 600 mg-cholecalciferol 400 units 600 mg-10 mcg (400 unit) tab Take 1 tablet by mouth once daily. 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 Ortiz Stroke (cerebrum) ([facility]) 2014 Type II or unspecified type diabetes mellitus without mention of complication, uncontrolled Unspecified cardiovascular disease Unspecified essential hypertension Urgency of urination 2009 Social History Tobacco Use Smoking status: Never Smokeless tobacco: Never Vaping Use Vaping Use: Never used Substance Use Topics Alcohol use: No Drug use: No Component Latest Ref Rng & Units 01/06/2023 WBC 3.70 - 11.00 k/uL 8.57 RBC 3.90 - 5.20 m/uL 3.91 Hemoglobin 11.5 - 15.5 g/dL 11.7 Hematocrit 36.0 - 46.0 % 37.1 MCV 80.0 - 100.0 fL 94.9 MCH 26.0 - 34.0 pg 29.9 MCHC 30.5 - 36.0 g/dL 31.5 RDW-CV 11.5 - 15.0 % 14.3 Platelet Count 150 - 400 k/uL 295 MPV 9.0 - 12.7 fL 11.2 Neut% % 56.5 Abs Neut (ANC) 1.45 - 7.50 k/uL 4.85 Lymph% % 34.7 Abs Lymph 1.00 - 4.00 k/uL 2.97 Bledsoe% % 6.8 Abs Bledsoe <0.87 k/uL 0.58 Eosin% % 0.8 Abs Eosin <0.46 k/uL 0.07 Baso% % 0.8 Abs Baso <0.11 k/uL 0.07 Immature Gran % % 0.4 IMMATURE GRANS (ABS) <0.10 k/uL 0.03 NRBC /100 WBC 0.0 Absolute nRBC <0.01 k/uL <0.01 DTYPE Auto Protein, Total 6.3 - 8.0 g/dL 7.0 Albumin 3.9 - 4.9 g/dL 3.9 Calcium 8.5 - 10.2 mg/dL 9.5 Bilirubin, Total 0.2 - 1.3 mg/dL 0.3 Alkaline Phosphatase 34 - 123 U/L 89 AST 13 - 35 U/L 19 ALT 7 - 38 U/L 14 Glucose 74 - 99 mg/dL 166 (H) BUN 7 - 21 mg/dL 31 (H) Creatinine 0.58 - 0.96 mg/dL 1.67 (H) Sodium 136 - 144 mmol/L 139 Potassium 3.7 - 5.1 mmol/L 4.6 Chloride 97 - 105 mmol/L 106 (H) CO2 22 - 30 mmol/L 18 (L) Anion Gap 9 - 18 mmol/L 15 eGFR >=60 mL/min/1.73m 30 (L) Cholesterol, Total <200 mg/dL 213 (H) Triglyceride <150 mg/dL 273 (H) HDL Cholesterol >39 mg/dL 48 Non HDL Cholesterol <130 mg/dL 165 (H) Fasting Time hrs 12 VLDL Cholesterol <30 mg/dL 55 (H) TC:HDL Ratio <5.10 4.44 LDL Cholesterol <100 mg/dL 110 (H) LDL:HDL Ratio <2.54 2.29 Creatinine, Ur Random (UCRR) 20.0 - 300.0 mg/dL 96.2 Albumin, Urine Random mg/L 2,563.7 Albumin/Creat Ratio <30 mg/g 2,665 (H) Hemoglobin A1C 4.3 - 5.6 % 7.8 (H) Estimated Average Glucose mg/dL 177 Vitamin D 25 Hydroxy 31.0 - 80.0 ng/mL 30.4 (L) Uric Acid 2.5 - 6.6 mg/dL 5.4 ASSESSMENT/PLAN: 1. . Hypertension goal BP (blood pressure) < 150/90 - ICD9: 401.9, ICD10: I10 Blood pressure is not currently well controlled. She reports taking an additional 2.5 mg of amlodipine every day for the last week except for today. Since not noting much improvement with 7.5 mg amlodipine daily will increase to 10 mg. Due for labwork, will check this week Has not recently seen [facility] cardiology. Endorse scheduling an appointment to reestablish care. Echocardiogram completed 2019 at [facility] showed LVEF 30%. [facility] 2019. S/P CABG CHAUDHARI-Dx, LAD; SVG-OM Cx, SVG-RCA Return to clinic 1 month for recheck of blood pressure. Ishmael Davis APRN.BRICK CLEANER Medical Decision Making: Problems: Moderate: 2+ stable chronic illnesses Risk: Moderate: Drug management Medical Decision Making Level: 4 - Moderate documented in this encounter [facility] 08-14-2023 Instructions Anju Pearce MD - 08/14/2023 5:14 PM EDT If start checking blood pressures, if have a BP over 160/100, then can take extra half pill of amlodipine (Norvasc) as needed. This is if in between doses. If due for taking amlodipine, just take your med. Can get automatic BP at store. Let me know if having frequent high BPs. Goal at least under 140/90. documented in this encounter [facility] 08-14-2023 History of Present illness Narrative This note was created using [employer]. Subjective Concha Woodward is a 88 year old female. Patient presents with: F/U 6 months SUBJECTIVE: Concha Woodward is a 88 year old year old lady here today for 6 month follow up appointment for review of medical conditions. Noted insulin cost went up after was better for a while. Had COVID last month. Just had severe fatigue. No other symptoms aside from mild cough and sinus symptoms for which was seen in [facility]. Was seeing [facility]. Noted kidney issues--have not tried jardiance or farxiga. 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 Ortiz Stroke (cerebrum) ([facility]) 2013 Type II or unspecified type diabetes mellitus without mention of complication, uncontrolled Unspecified cardiovascular disease Unspecified essential hypertension Urgency of urination 2009 Current Outpatient Medications Medication Sig allopurinol (ZYLOPRIM) 100 mg tablet Take 1 tablet by mouth once daily. amLODIPine (NORVASC) 5 mg tablet Take 1 tablet by mouth once daily. aspirin 81 mg chewable tablet Take 1 tablet by mouth once daily. blood sugar diagnostic (FREESTYLE LITE STRIPS) test strip Test blood sugar(s) 3 times daily. Dx: Type 2 DM - Uncontrolled E11.65 Insulin: Yes calcium carbonate 600 mg-cholecalciferol 400 units 600 mg-10 mcg (400 unit) tab Take 1 tablet by mouth once daily. Cholecalciferol, Vitamin D3, 25 mcg (1,000 unit) cap Take 1 capsule by mouth once daily. (1000 to 2000 IU daily fine) clopidogrel (PLAVIX) 75 mg tablet Take 1 tablet by mouth once daily. insulin aspart U-100 (NOVOLOG FLEXPEN U-100 INSULIN) 100 unit/mL (3 mL) Take 8-12 units breakfast, 6 units lunch, and 10 units dinner (Patient taking differently: Inject 4 Units subcutaneously three times a day before meals. Take 9 units breakfast, 4 units lunch, and 7 units dinner) insulin glargine (BASAGLAR KWIKPEN U-100 INSULIN) 100 unit/mL (3 mL) Inject 14 Units subcutaneously daily at bedtime. Insulin [place], Disposable, (BD ULTRA-FINE JOHN PEN NEEDLE) 32 gauge x Use one needle for each dose. 1x/day. metoprolol succinate ER (TOPROL XL) 100 mg Take 1 tablet by mouth once daily. RESTASIS 0.05 % ophthalmic emulsion Use 1 Drop in both eyes twice daily. rosuvastatin (CRESTOR) 5 mg tablet Take 1 tablet by mouth once daily. As directed white petrolatum-mineral oil (SYSTANE NIGHTTIME) 94-3 % ophthalmic ointment Use 1 application in both eyes daily at bedtime. No current facility-administered medications for this visit. Review of Systems Objective BP 161/90 Pulse 79 Temp (!) 35.6 C (96.1 F) Resp 18 Wt 75.8 kg (167 lb) SpO2 97% BMI 29.58 kg/m Last 5 Encounter Wt Readings: Date: Wt: 08/14/2023 75.8 kg (167 lb) 07/21/2023 74.8 kg (165 lb) 01/09/2023 78.9 kg (174 lb) 01/01/2023 78.9 kg (174 lb) 06/25/2022 79.4 kg (175 lb) No waist measurement recorded Estimated body mass index is 29.58 kg/m as calculated from the following: Height as of 01/04/20: 160 cm (5' 3). Weight as of this encounter: 75.8 kg (167 lb). Last 5 Encounter BP Readings: Date: BP: 08/14/2023 161/90 07/21/2023 152/94 01/09/2023 122/72 01/01/2023 148/71 06/25/2022 142/78 08/14/23 1643 08/14/23 1736 BP: 161/90 150/80 Pulse: 79 Resp: 18 Temp: (!) 35.6 C (96.1 F) SpO2: 97% Weight: 75.8 kg (167 lb) Physical Exam Constitutional: Appearance: Normal appearance. HENT: Head: Normocephalic. Eyes: Conjunctiva/sclera: Conjunctivae normal. Cardiovascular: Rate and Rhythm: Normal rate and regular rhythm. Heart sounds: Normal heart sounds. Pulmonary: Effort: Pulmonary effort is normal. Breath sounds: Normal breath sounds. Musculoskeletal: Right lower leg: Pitting Edema (Trace) present. Left lower leg: Pitting Edema (Trace) present. Skin: General: Skin is warm and dry. Neurological: General: No focal deficit present. Mental Status: She is alert and oriented to person, place, and time. Psychiatric: Attention and Perception: Attention and perception normal. Mood and Affect: Mood and affect normal. Speech: Speech normal. Behavior: Behavior normal. Thought Content: Thought content normal. Judgment: Judgment normal. Assessment and Plan Encounter Diagnosis ICD-10-CM 1. Type 2 diabetes mellitus with stage 3b chronic kidney disease, with long-term current use of insulin (HCC) E11.22 HGB A1C N18.32 COMP METABOLIC PANEL Z79.4 CBC LIPID PANEL BASIC ALBUMIN/CREAT RATIO RND UR HGB A1C COMP METABOLIC PANEL 2. Hypertension goal BP (blood pressure) < 150/90 I10 COMP METABOLIC PANEL CBC COMP METABOLIC PANEL CBC Better on recheck but still higher than goal. 3. Vitamin D deficiency E55.9 VITAMIN D 25 HYDROXY VITAMIN D 25 HYDROXY 4. 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 Hyperuricemia E79.0 URIC ACID BLOOD URIC ACID BLOOD 6. Encounter for immunization Z23 INFLUENZA VACCINE, PRSV FREE, AGE 65+ YR, HIGH DOSE, QUADRIVALENT (FLUZONE HIGH-DOSE) Above issues addressed with patient. Continue present management.Further evaluation and treatment as indicated. Patient involved in shared decision making for management of medical issues. History and medications reviewed. Epic updated as needed Refills and/or prescriptions taken care of and meds adjusted as indicated after reviewed history, exam and labs. Reviewed medication list and noted that has refills to last till next appointment. Health Maintenance reviewed. Updated record and/or ordered tests as recorded. Encouraged on efforts at healthy diet and regular exercise and adequate sleep. Anju Pearce MD documented in this encounter [facility] 07-24-2023 Miscellaneous Notes Patient notified and verbalized understanding. Myriam Whitehead MA Attempted to contact patient, no answer and no option to leave VM. Will try again. Myriam Whitehead MA The following approved medication requests have been transmitted electronically. Requested Prescriptions Signed Prescriptions Disp Refills insulin glargine (BASAGLAR KWIKPEN U-100 INSULIN) 100 unit/mL (3 mL) 15 mL 11 Sig: Inject 14 Units subcutaneously daily at bedtime. Authorizing Provider: ANJU PEARCE MD Request not seen till Sunday night. Check up on patient on Sunday Patient reports she had lunch with Lynne Dsouza Np, and they discussed her diabetes. Reports Lynne recommended she increase her basaglar from 11 units to 14 units daily at bedtime. This was not recorded in patient's chart, but she has been taking 14 units daily at bedtime. Reports she is doing much better on this new dose, BS this morning was 126, and she has been getting good readings. Due to the increase, she has run out of her Rx and pharmacy tells her it's too soon to refill, and she cannot afford to pay out of pocket. Reports she will run out on Sunday. Asking if pcp would send new Rx to [facility], with the new dose of 14 units? Pended new Rx with the increase dose of 14 units, in case you are able to do this, if not please delete pended Rx and let patient know either way. documented in this encounter [facility] 07-21-2023 History of Present illness Narrative CC: Patient presents with: Unwell: Not feeling well since Sunday. Some body aches HPI: Concha Woodward is a 88 year old female who presents to the office with complaint of cough, nonproductive and sinus symptoms for 4 days. Symptoms are staying the same. Associated symptoms includes body aches and fatigue. Denies fever, vomiting , and diarrhea. Treatments tried include nothing so far. with no relief of symptoms. Sick contacts: unknown. History of asthma, frequent episodes of bronchitis, chronic bronchitis, bronchiectasis or COPD: No Smoker: No Seasonal/environmental allergies: No The ROS is otherwise negative. The patient's pmh, medications, allergies, and past visits are reviewed. PHYSICAL EXAM: BP 152/94 Pulse 104 Temp 36.8 C (98.2 F) Resp 18 Wt 74.8 kg (165 lb) SpO2 97% BMI 29.23 kg/m General appearance: alert, cooperative, pleasant, in no acute distress Head: Normocephalic Eyes: EOM's intact, conjunctiva pink and moist, no icterus, sclera white, non-injected Ears: Right ear: External ear/canal- Normal, TM - clear with good landmarks. Left ear: External ear/canal- Normal, TM - clear with good landmarks Oropharynx:moist without lesions, No erythema, exudates or tonsillar hypertrophy. Heart: Negative. RRR without obvious murmur, gallop, or rubs. No ectopy. 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 Ortiz Stroke (cerebrum) (HCC) 2013 Type II or unspecified type diabetes mellitus without mention of complication, uncontrolled Unspecified cardiovascular disease Unspecified essential hypertension Urgency of urination 2008 PAST SURGICAL HISTORY Procedure Laterality Date ANGIOPLASTY 1988 CABG (3) VEIN GRAFTS & ARTERIAL GRAFT(S) 01/09/2020 @ [facility] by Dr. Ortiz COLONOSCOPY FLX DX W/COLLJ SPEC WHEN PFRMD 08/29/07 LAPAROSCOPY SURG CHOLECYSTECTOMY Cholecystectomy, lap LEFT HEART CATH,CUTDOWN 1991 PAST SURGICAL HISTORY OF Tubal ALLERGIES Bactrim [Sulfamethoxazole-Trimethoprim], Codeine, Prednisone, Statins [Qgohxcf-Nzk-Rje Reductase Inhibitors], and Ultram [Tramadol Hcl] MEDICATIONS clopidogrel (PLAVIX) 75 mg tablet Take 1 tablet by mouth once daily. allopurinol (ZYLOPRIM) 100 mg tablet Take 1 tablet by mouth once daily. insulin aspart U-100 (NOVOLOG FLEXPEN U-100 INSULIN) 100 unit/mL (3 mL) Take 8-12 units breakfast, 6 units lunch, and 10 units dinner blood sugar diagnostic (FREESTYLE LITE STRIPS) test strip Test blood sugar(s) 3 times daily. Dx: Type 2 DM - Uncontrolled E11.65 Insulin: Yes insulin glargine (BASAGLAR KWIKPEN U-100 INSULIN) 100 unit/mL (3 mL) Inject 11 Units subcutaneously daily at bedtime. metoprolol succinate ER (TOPROL XL) 100 mg Take 1 tablet by mouth once daily. rosuvastatin (CRESTOR) 5 mg tablet Take 1 tablet by mouth once daily. As directed amLODIPine (NORVASC) 5 mg tablet Take 1 tablet by mouth once daily. Insulin [place], Disposable, (BD ULTRA-FINE JOHN PEN NEEDLE) 32 gauge x Use one needle for each dose. 1x/day. Cholecalciferol, Vitamin D3, 25 mcg (1,000 unit) cap Take 1 capsule by mouth once daily. (1000 to 2000 IU daily fine) aspirin 81 mg chewable tablet Take 1 tablet by mouth once daily. white petrolatum-mineral oil (SYSTANE NIGHTTIME) 94-3 % ophthalmic ointment Use 1 application in both eyes daily at bedtime. RESTASIS 0.05 % ophthalmic emulsion Use 1 Drop in both eyes twice daily. calcium carbonate 600 mg-cholecalciferol 400 units 600 mg-10 mcg (400 unit) tab Take 1 tablet by mouth once daily. FAMILY HISTORY Problem Relation Age of Onset Heart Mother mi Heart Father heart disease Diabetes Maternal Uncle Cancer Brother Mouth (non smoker) Social History Tobacco Use Smoking status: Never Smokeless tobacco: Never Vaping Use Vaping Use: Never used Substance Use Topics Alcohol use: No Drug use: No ASSESSMENT/PLAN: 1. URI, acute - ICD9: 465.9, ICD10: J06.9 - COVID & INFLUENZA A/B & RSV NAAT, ROUTINE Patient was instructed to take wcbo-tjf-axhsuym medication at this time for supportive therapy for symptom management. Patient was educated about red flag symptoms to watch for. Patient will follow-up as needed. Clement Cortes APRN.DAYANA Prescription instructions reviewed with patient as applicable. Potential red flag symptoms discussed with the patient. Reviewed appropriate action plan to take if red flag symptoms occur. Patient agreeable to treatment plan. Clement Cortes APRN.DAYANA documented in this encounter [facility] 07-02-2023 Miscellaneous Notes Last seen pcp 01/09/23. Next appt is 08/14/23 with pcp Patient has been identified by name and date of : Yes Last office visit in this department: 04/25/2017 RX INSTRUCTIONS: Patient aware RX will be sent to pharmacy. No need to notify patient. Patient phones requesting refills as follows: Requested Prescriptions Pending Prescriptions Disp Refills clopidogrel (PLAVIX) 75 mg tablet 90 tablet 3 Sig: Take 1 tablet by mouth once daily. Please review and advise. Ofelia Carroll documented in this encounter [facility] 06-01-2023 Miscellaneous Notes Last Office Visit: 01/09/2023 Future Office Visit: 08/14/2023 Requested Prescriptions Pending Prescriptions Disp Refills allopurinol (ZYLOPRIM) 100 mg tablet 90 tablet 3 Sig: Take 1 tablet by mouth once daily. Date of Last Labs: 01/06/2023 documented in this encounter [facility] 04-25-2023 Miscellaneous Notes Patient has been identified by name and date of : Yes Last office visit in this department: 01/09/2023 RX INSTRUCTIONS: Patient aware RX will be sent to pharmacy. No need to notify patient. Patient phones requesting refills as follows: Requested Prescriptions Pending Prescriptions Disp Refills insulin glargine (BASAGLAR KWIKPEN U-100 INSULIN) 100 unit/mL (3 mL) 15 mL 11 Sig: Inject 11 Units subcutaneously daily at bedtime. Please review and advise. Gregorio Garcia documented in this encounter [facility] 03-14-2023 Miscellaneous Notes EVANGELINA Corbin, advised that she does have refills remaining on Crestor, Patient will check with pharmacy. Patient has been identified by name and date of : Yes Patient phones for refill(s): Requested Prescriptions Pending Prescriptions Disp Refills blood sugar diagnostic (FREESTYLE LITE STRIPS) test strip 300 Strip 3 Sig: Test blood sugar(s) 3 times daily. Dx: Type 2 DM - Uncontrolled E11.65 Insulin: Yes Date of last office visit in primary care: 01/09/2023 6 month follow-up: 08/14/2023 Last 2 Encounter Wt Readings: Date: Wt: 01/09/2023 78.9 kg (174 lb) 01/01/2023 78.9 kg (174 lb) Previous labs/tests for medication: Diabetes: Hemoglobin A1C (%) Date Value 01/06/2023 7.8 05/17/2022 7.1 09/15/2021 7.4 05/23/2021 7.5 Please advise. Thank you. Charlotte Nava LPN Pharmacy verified in [facility] Patient has been identified by name and date of : Yes Patient aware RX will be sent to pharmacy. No need to notify patient. Patient phones for refill(s): Requested Prescriptions Pending Prescriptions Disp Refills blood sugar diagnostic (FREESTYLE LITE STRIPS) test strip 300 Strip 3 Sig: Test blood sugar(s) 3 times daily. Dx: Type 2 DM - Uncontrolled E11.65 Insulin: Yes rosuvastatin (CRESTOR) 5 mg tablet 90 tablet 3 Sig: Take 1 tablet by mouth once daily. As directed Date of last office visit : 01/09/2023 Date of next office visit : 08/14/2023 Last 2 Encounter Wt Readings: Date: Wt: 01/09/2023 78.9 kg (174 lb) 01/01/2023 78.9 kg (174 lb) Please advise. Leona Vázquez Pss documented in this encounter [facility] 02-26-2023 Miscellaneous Notes PDMP website checked and validated. All prescriptions have been APPROPRIATELY filled. No suspicious activity was identified. 02/26/2023 by Iesha Waddell APRN.EVENTS ASSISTANT Last office visit: 01/09/23 Next appointment scheduled: 08/14/23 Patient has been identified by name and date of : Yes Requested Prescriptions Pending Prescriptions Disp Refills traMADol (ULTRAM) 50 mg tablet 14 tablet 0 Sig: Take 1 tablet by mouth twice daily for 7 days. RX INSTRUCTIONS: Patient aware RX will be sent to pharmacy. No need to notify patient. Melva Noble documented in this encounter [facility] 01-10-2023 Miscellaneous Notes The following approved medication requests have been transmitted electronically. Requested Prescriptions Signed Prescriptions Disp Refills insulin glargine (BASAGLAR KWIKPEN U-100 INSULIN) 100 unit/mL (3 mL) 15 mL 11 Sig: Inject 11 Units subcutaneously daily at bedtime. Authorizing Provider: ANJU PEARCE MD 11 not 1 units Please review units per day. documented in this encounter [facility] 01-09-2023 History of Present illness Narrative This note was created using [employer]. Subjective Concha Woodward is a 87 year old female. Patient presents with: F/U 6 months: Labs done prior SUBJECTIVE: Concha Woodward is a 87 year old year old lady here today for 6 month follow up appointment for review of medical conditions. Reviewed that had fallen and broken arm last September. Just got back home after staying with daughter Was sitting more than usual and feet down most of the time though tried to elevate with recliner Swelling in legs staying the same. Better in AM when first gets up. Blood pressure controlled without adverse effects from medications. No problems with sugars under 70 or over 300. Added daughter to [facility]UL[facility] Depression Screening 08/21/2018 09/02/2019 01/01/2021 01/09/2023 PHQ-2 Score 0 0 0 3 PHQ-9 Score - - - - Depression screening tool completed and reviewed. Based on score and interview, patient is at risk for depression. Screening tool discussed with patient, and I recommended no further intervention at this time. 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 Ortiz Stroke (cerebrum) ([facility]) 2013 Type II or unspecified type diabetes mellitus without mention of complication, uncontrolled Unspecified cardiovascular disease Unspecified essential hypertension Urgency of urination 2008 Current Outpatient Medications Medication Sig rosuvastatin (CRESTOR) 5 mg tablet Take 1 tablet by mouth once daily. As directed amLODIPine (NORVASC) 5 mg tablet Take 1 tablet by mouth once daily. Insulin [place], Disposable, (BD ULTRA-FINE JOHN PEN NEEDLE) 32 gauge x 5/32 Use one needle for each dose. 1x/day. insulin aspart U-100 (NOVOLOG FLEXPEN U-100 INSULIN) 100 unit/mL (3 mL) Take 8-12 units breakfast, 6 units lunch, and 10 units dinner clopidogrel (PLAVIX) 75 mg tablet Take 1 tablet by mouth once daily. allopurinol (ZYLOPRIM) 100 mg tablet Take 1 tablet by mouth once daily. insulin glargine (BASAGLAR KWIKPEN U-100 INSULIN) 100 unit/mL (3 mL) Inject 11 Units subcutaneously daily at bedtime. (Patient taking differently: Inject 12 Units subcutaneously daily at bedtime.) metoprolol succinate ER (TOPROL XL) 100 mg Take 1 tablet by mouth once daily. blood sugar diagnostic (FREESTYLE LITE STRIPS) test strip Test blood sugar(s) 3 times daily. Dx: Type 2 DM - Uncontrolled E11.65 Insulin: Yes Cholecalciferol, Vitamin D3, 25 mcg (1,000 unit) cap Take 1 capsule by mouth once daily. (1000 to 2000 IU daily fine) aspirin 81 mg chewable tablet Take 1 tablet by mouth once daily. white petrolatum-mineral oil (SYSTANE NIGHTTIME) 94-3 % ophthalmic ointment Use 1 application in both eyes daily at bedtime. RESTASIS 0.05 % ophthalmic emulsion Use 1 Drop in both eyes twice daily. calcium carbonate 600 mg-cholecalciferol 400 units 600 mg-10 mcg (400 unit) tab Take 1 tablet by mouth once daily. traZODone (DESYREL) 50 mg tablet Take 1 tablet by mouth daily at bedtime. (Patient not taking: No sig reported) No current facility-administered medications for this visit. Review of Systems Objective BP 122/72 Pulse 78 Temp 36.8 C (98.3 F) Resp 18 Wt 78.9 kg (174 lb) SpO2 97% BMI 30.82 kg/m Physical Exam Constitutional: Appearance: Normal appearance. HENT: Head: Normocephalic. Eyes: Conjunctiva/sclera: Conjunctivae normal. Cardiovascular: Rate and Rhythm: Normal rate and regular rhythm. Heart sounds: Normal heart sounds. Pulmonary: Effort: Pulmonary effort is normal. Breath sounds: Normal breath sounds. Skin: General: Skin is warm and dry. Neurological: General: No focal deficit present. Mental Status: She is alert and oriented to person, place, and time. Psychiatric: Attention and Perception: Attention and perception normal. Mood and Affect: Mood and affect normal. Speech: Speech normal. Behavior: Behavior normal. Thought Content: Thought content normal. Judgment: Judgment normal. Component Latest Ref Rng & Units 09/15/2021 05/17/2022 01/06/2023 WBC 3.70 - 11.00 k/uL 8.17 8.36 8.57 RBC 3.90 - 5.20 m/uL 4.33 4.35 3.91 Hemoglobin 11.5 - 15.5 g/dL 13.3 13.1 11.7 Hematocrit 36.0 - 46.0 % 39.5 39.7 37.1 MCV 80.0 - 100.0 fL 91.2 91.3 94.9 MCH 26.0 - 34.0 pg 30.7 30.1 29.9 MCHC 30.5 - 36.0 g/dL 33.7 33.0 31.5 RDW-CV 11.5 - 15.0 % 13.7 13.6 14.3 Platelet Count 150 - 400 k/uL 257 269 295 MPV 9.0 - 12.7 fL 10.9 11.0 11.2 Neut% % 49.5 56.5 Abs Neut (ANC) 1.45 - 7.50 k/uL 4.14 4.85 Lymph% % 41.3 34.7 Abs Lymph 1.00 - 4.00 k/uL 3.45 2.97 Bledsoe% % 7.2 6.8 Abs Bledsoe <0.87 k/uL 0.60 0.58 Eosin% % 1.0 0.8 Abs Eosin <0.46 k/uL 0.08 0.07 Baso% % 0.8 0.8 Abs Baso <0.11 k/uL 0.07 0.07 Immature Gran % % 0.2 0.4 IMMATURE GRANS (ABS) <0.10 k/uL <0.03 0.03 NRBC /100 WBC 0.0 0.0 Absolute nRBC <0.01 k/uL <0.01 <0.01 <0.01 DTYPE Auto Auto Protein, Total 6.3 - 8.0 g/dL 6.6 6.8 7.0 Albumin 3.9 - 4.9 g/dL 3.9 3.9 3.9 Calcium 8.5 - 10.2 mg/dL 9.3 8.8 9.5 Bilirubin, Total 0.2 - 1.3 mg/dL 0.4 0.5 0.3 Alkaline Phosphatase 34 - 123 U/L 79 86 89 AST 13 - 35 U/L 12 (L) 14 19 Glucose 74 - 99 mg/dL 174 (H) 198 (H) 166 (H) BUN 7 - 21 mg/dL 35 (H) 38 (H) 31 (H) Creatinine 0.58 - 0.96 mg/dL 1.51 (H) 1.52 (H) 1.67 (H) Sodium 136 - 144 mmol/L 138 138 139 Potassium 3.7 - 5.1 mmol/L 4.1 4.1 4.6 Chloride 97 - 105 mmol/L 105 105 106 (H) CO2 22 - 30 mmol/L 21 (L) 19 (L) 18 (L) Anion Gap 9 - 18 mmol/L 12 14 15 ALT 7 - 38 U/L 11 11 14 eGFR- 40 eGFR-All Other Races . 33 eGFR >=60 mL/min/1.73m 33 (L) 30 (L) Cholesterol, Total <200 mg/dL 238 (H) 213 (H) Triglyceride <150 mg/dL 275 (H) 273 (H) HDL Cholesterol >39 mg/dL 48 48 Non HDL Cholesterol <130 mg/dL 190 (H) 165 (H) Fasting Time hrs 10 12 VLDL Cholesterol <30 mg/dL 55 (H) 55 (H) TC:HDL Ratio <5.10 4.96 4.44 LDL Cholesterol <100 mg/dL 135 (H) 110 (H) LDL:HDL Ratio <2.54 2.81 (H) 2.29 Creatinine, Ur Random (UCRR) 20.0 - 300.0 mg/dL 92.4 96.2 Albumin, Urine Random mg/L 514.7 2,563.7 Albumin/Creat Ratio <30 mg/g 557 (H) 2,665 (H) Hemoglobin A1C 4.3 - 5.6 % 7.4 (H) 7.1 (H) 7.8 (H) Estimated Average Glucose mg/dL 166 157 177 Vitamin D 25 Hydroxy 31.0 - 80.0 ng/mL 37.4 35.1 30.4 (L) Uric Acid 2.5 - 6.6 mg/dL 7.0 (H) 6.3 5.4 Assessment and Plan Encounter Diagnosis ICD-10-CM 1. Type 2 diabetes mellitus with stage 3b chronic kidney disease, with long-term current use of insulin (HCC) E11.22 BASIC METABOLIC PNL N18.32 ALBUMIN/CREAT RATIO RND UR Z79.4 2. Stage 3b chronic kidney disease (HCC) N18.32 BASIC METABOLIC PNL 3. Vitamin D deficiency E55.9 VITAMIN D 25 HYDROXY Level down--avoid missing dose 4. Mixed hyperlipidemia E78.2 Improved; will see if better to goal with taking daily in AM with other meds so not missing like when trying to take in PM 5. Hypertension goal BP (blood pressure) < 150/90 I10 6. Bilateral leg edema R60.0 7. Swelling of left hand M79.89 Since arm fracture; elevation, massage, squeeze ball, ,etc 8. Positive for macroalbuminuria R80.9 ALBUMIN/CREAT RATIO RND UR Above issues addressed with patient. Patient involved in shared decision making for management of medical issues. History and medications reviewed. Epic updated as needed Refills and/or prescriptions taken care of and meds adjusted as indicated after reviewed history, exam and labs. Health Maintenance reviewed. Updated record and/or ordered tests as recorded. Encouraged on efforts at healthy diet and regular exercise and adequate sleep. Basaglar 11 units--fixed in telephone encounter. Continue present meds.Continue present management.Further evaluation and treatment as indicated. Anju Pearce MD documented in this encounter [facility] 01-02-2023 Miscellaneous Notes PATIENT NOTIFIED OF SAME. Order faxed to [facility] or Aging as requested. Please let patient know that [facility] is not willing to follow since she is doing PT at [facility], we can do a referral to the [facility] agency on Aging to see if we can get some assistance resources for her that way. Please send referral, thanks! Delores from [facility] calls and state that patient was not discharged from [facility]. [facility] is planning on seeing patient for the next 2 months. Patient had just finished phase one of PT therapy. Patient was seen yesterday at [facility]. In those notes, it was noted that patient has been living at home by self. Delores states that transportation issues is not a reason for homebound therapy. Insurance will not cover homebound therapy especially since patient has not been discharged from [facility]. Delores states that she would like to help patient but unable to help due to insurance not covering home health therapy. Please review and advise, Miriam Pepe RN documented in this encounter [facility] 01-01-2023 Miscellaneous Notes Detailed message left for Delores as to below information. She was going to [facility] while living with family because she had access to them for transportation. She is now going back to her own home to try and regain independence and that is why she is interested in HHC services. Please let [facility] know that. Delores with [facility] called in and reports she was going over last OV notes and it said that Pt was going to [facility] for PT. She was asking if the Pt is currently going there. She states if the Pt is going to out patient therapy her insurance wouldn't cover home health. Please call and advise. documented in this encounter [facility] 01-01-2023 History of Present illness Narrative SUBJECTIVE Concha Woodward is a 87 year old female here today for a check up on her medical problems. Chief Complaint Patient presents with: Question: would like to know if she qualifies for a home health nurse after fall 09/2022 with left shoulder fracture HPI Concha Woodward is a 87 year old female established patient of Dr. Pearce who presents today due to wondering if she can qualify for . Had a fall recently and was staying with family. Preparing to go back home. Had a left shoulder fracture. No surgical repair was needed, it has been healing with conservative treatment. Trouble with showering and completing some ADLs when trying to do them without assistance. She is not permitted to drive yet at this point. In PT. Going [facility]. . Pain has been controlled. Following with [facility] for ortho. Her medications were reviewed today and her list is now up to date. Medications Current Outpatient Medications Medication Sig amLODIPine (NORVASC) 5 mg tablet Take 1 tablet by mouth once daily. insulin aspart U-100 (NOVOLOG FLEXPEN U-100 INSULIN) 100 unit/mL (3 mL) Take 8-12 units breakfast, 6 units lunch, and 10 units dinner clopidogrel (PLAVIX) 75 mg tablet Take 1 tablet by mouth once daily. allopurinol (ZYLOPRIM) 100 mg tablet Take 1 tablet by mouth once daily. insulin glargine (BASAGLAR KWIKPEN U-100 INSULIN) 100 unit/mL (3 mL) Inject 11 Units subcutaneously daily at bedtime. (Patient taking differently: Inject 12 Units subcutaneously daily at bedtime.) metoprolol succinate ER (TOPROL XL) 100 mg Take 1 tablet by mouth once daily. Cholecalciferol, Vitamin D3, 25 mcg (1,000 unit) cap Take 1 capsule by mouth once daily. (1000 to 2000 IU daily fine) aspirin 81 mg chewable tablet Take 1 tablet by mouth once daily. RESTASIS 0.05 % ophthalmic emulsion Use 1 Drop in both eyes twice daily. calcium carbonate 600 mg-cholecalciferol 400 units 600 mg-10 mcg (400 unit) tab Take 1 tablet by mouth once daily. rosuvastatin (CRESTOR) 5 mg tablet Take 1 tablet by mouth once daily. As directed Insulin [place], Disposable, (BD ULTRA-FINE JOHN PEN NEEDLE) 32 gauge x Use one needle for each dose. 1x/day. blood sugar diagnostic (FREESTYLE LITE STRIPS) test strip Test blood sugar(s) 3 times daily. Dx: Type 2 DM - Uncontrolled E11.65 Insulin: Yes traZODone (DESYREL) 50 mg tablet Take 1 tablet by mouth daily at bedtime. (Patient not taking: Reported on 01/01/2023) white petrolatum-mineral oil (SYSTANE NIGHTTIME) 94-3 % ophthalmic ointment Use 1 application in both eyes daily at bedtime. No current facility-administered medications for this visit. ALLERGIES Allergen Reactions Bactrim [Sulfametho* Vomiting Codeine Vomiting Prednisone Vomiting Statins [Statins-Hm* Intolerance Ultram [Tramadol Hc* Vomiting ACTIVE PROBLEM LIST Obesity, Class I, Bmi 30-34.9 - 01/01/2023 Stage 3b Chronic Kidney Disease ([facility]) - 01/20/2022 Hypertensive Kidney Disease With Stage 3b Chronic Kidney Disease ([facility]) - 01/20/2022 S/P Cabg X 4 - 01/09/2020 Diarrhea, Unspecified - 04/28/2019 Hyperuricemia - 01/05/2018 Type 2 Diabetes Mellitus With Stage 3b Chronic Kidney Disease, With Long-Term Current Use of Insulin ([facility]) - 08/25/2014 History of Cva (Cerebrovascular Accident) - 08/25/2014 History of Gout - 02/25/2013 Osteopenia - 05/20/2007 Comment: Last Dexa - 2006 - Femoral, -0.6, Spine, -1.3; no fractures as adult, non smoker, sister with osteoporosis. Vitamin D level - 34.4 (8/07), Pth intact, normal (06/11). Hypertension Goal Bp (Blood Pressure) < 150/90 Pure Hypercholesterolemia Comment: Multiple Statin intolerances - has been unable to take statins - myalgias Social History Tobacco Use Smoking status: Never Smokeless tobacco: Never Vaping Use Vaping Use: Never used Substance Use Topics Alcohol use: No Drug use: No Review of Systems Respiratory: Negative. Cardiovascular: Negative. Musculoskeletal: Positive for arthralgias. Negative for back pain, gait problem and joint swelling. OBJECTIVE BP 148/71 Pulse 71 Wt 174 lb (78.9kg) SpO2 98% Physical Exam Vitals and nursing note reviewed. Constitutional: General: She is awake. She is not in acute distress. Appearance: Normal appearance. She is well-developed and well-groomed. She is not ill-appearing, toxic-appearing or diaphoretic. HENT: Head: Normocephalic. Right Ear: External ear normal. Left Ear: External ear normal. Nose: Nose normal. Eyes: General: Vision grossly intact. Conjunctiva/sclera: Conjunctivae normal. Pupils: Pupils are equal, round, and reactive to light. Neck: Vascular: No JVD. Trachea: Trachea normal. Cardiovascular: Rate and Rhythm: Normal rate and regular rhythm. Pulses: Normal pulses. Heart sounds: Normal heart sounds. No murmur heard. Pulmonary: Effort: Pulmonary effort is normal. No accessory muscle usage, prolonged expiration or respiratory distress. Breath sounds: Normal breath sounds. Musculoskeletal: Left shoulder: Tenderness present. Decreased range of motion. Decreased strength. Cervical back: Neck supple. Skin: General: Skin is warm and dry. Capillary Refill: Capillary refill takes less than 2 seconds. Neurological: General: No focal deficit present. Mental Status: She is alert and oriented to person, place, and time. Mental status is at baseline. Psychiatric: Attention and Perception: Attention and perception normal. Mood and Affect: Mood and affect normal. Speech: Speech normal. Behavior: Behavior normal. Behavior is cooperative. Thought Content: Thought content normal. Cognition and Memory: Cognition and memory normal. Judgment: Judgment normal. ASSESSMENT/PLAN: 1. Closed fracture of left shoulder with routine healing, subsequent encounter - ICD9: V54.11, ICD10: S42.92XD (primary diagnosis) Referral for [facility] with [facility]. - [facility] 2. Mixed hyperlipidemia - ICD9: 272.2, ICD10: E78.2 - ROSUVASTATIN 5 MG TABLET 3. Obesity, Class I, BMI 30-34.9 - ICD9: 278.00, ICD10: E66.9 4. Type 2 diabetes mellitus with stage 3b chronic kidney disease, with long-term current use of insulin (HCC) - ICD9: 250.40, 585.3, V58.67, ICD10: E11.22, N18.32, Z79.4 - NON-[facility] Portions of this note have been entered by ancillary staff. I have reviewed and when necessary edited, so that they are an adequate record of my encounter with this patient Please note that parts of this document were created using voice recognition software and therefore may contain grammatical errors. Patient verbalizes understanding of instructions from today's visit and in agreement with treatment plan. Questions answered. Agrees to call the office if questions, concerns of issues with acute symptoms not improving or if they worsen. Return if symptoms worsen or fail to improve, for Keep next scheduled appointment.. Iesha Waddell APRN-DAYANA documented in this encounter [facility] 12-25-2022 Miscellaneous Notes JESSA 05/24/22 Next OV 01/01/23 Patient has been identified by name and date of : Yes Requested Prescriptions Pending Prescriptions Disp Refills amLODIPine (NORVASC) 5 mg tablet 90 tablet 3 Sig: Take 1 tablet by mouth once daily. RX INSTRUCTIONS: Needs today please. Patient aware RX will be sent to pharmacy. No need to notify patient. Charleen Anderson Pss documented in this encounter [facility] 08-22-2022 Miscellaneous Notes Okayed Patient has been identified by name and date of : Yes Patient phones for refill(s): Requested Prescriptions Pending Prescriptions Disp Refills insulin aspart U-100 (NOVOLOG FLEXPEN U-100 INSULIN) 100 unit/mL (3 mL) 15 Each 3 Sig: Take 8-12 units breakfast, 6 units lunch, and 10 units dinner Date of last office visit in primary care: 05/24/22 next apt 01/09/23 Last 2 Encounter Wt Readings: Date: Wt: 06/25/2022 79.4 kg (175 lb) 05/24/2022 78 kg (172 lb) Previous labs/tests for medication: Diabetes: Hemoglobin A1C (%) Date Value 05/17/2022 7.1 09/15/2021 7.4 05/23/2021 7.5 Thank you. Angelica Rogel LPN Patient has been identified by name and date of : Yes Patient phones for refill(s): Requested Prescriptions No prescriptions requested or ordered in this encounter Date of last office visit in primary care:05/24/2022 Last 2 Encounter Wt Readings: Date: Wt: 06/25/2022 79.4 kg (175 lb) 05/24/2022 78 kg (172 lb) Previous labs/tests for medication: Not applicable Please advise. Thank you. Radha Diaz documented in this encounter [facility] 06-28-2022 Miscellaneous Notes Aristeo with Dr Mora[facility] called over to have urine culture and Pts last OV notes send over. Faxed to # [phone]. documented in this encounter [facility] 06-26-2022 Miscellaneous Notes Left message for patient to return call. Linda Devine ----- Message from Lynn David APRN.EVENTS ASSISTANT sent at 06/26/2022 5:19 PM EDT ----- Urine culture did not show clear evidence of infection. She may continue to take antibiotic if it has been helpful. Recommend follow up with PCP to ensure hematuria has resolved. Lynn David CNP documented in this encounter [facility] 06-25-2022 History of Present illness Narrative Subjective The history is provided by the patient. No speech language pathologist travel was used. HPI Concha Woodward is a 87 year old female who presents today for CC of pain with urination for 3 days, and getting worse Positive for Dysuria, Increase in frequency of urination, Urgency, and Abdominal pain , Negative for Sense of incomplete void, Fevers, Vomiting, Diarrhea, Back/Flank pain, Blood in urine, and Vaginal itch or discharge Chance of : No Last intercourse: n/a, post menopausal Any self-treatment attempted: Yes Number of previous UTI's in last 6 months:0 Number of previous UTI's in last 12 months: 1 Aggravating Factors: voiding Alleviating Factors include Increasing fluids with minimal relief in symptoms. 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 Ortiz Stroke (cerebrum) ([facility]) 2013 Type II or unspecified type diabetes mellitus without mention of complication, uncontrolled Unspecified cardiovascular disease Unspecified essential hypertension Urgency of urination 2008 I have confirmed and edited as necessary, the [facility] Review of Systems Constitutional: Negative for chills and fever. Gastrointestinal: Positive for abdominal pain (suprapubic). Negative for nausea and vomiting. Genitourinary: Negative for dysuria, flank pain, frequency, hematuria and urgency. All other systems reviewed and are negative. Objective Physical Exam Vitals and nursing note reviewed. Constitutional: Appearance: Normal appearance. Abdominal: General: Bowel sounds are normal. There is no abdominal bruit. Palpations: Abdomen is not rigid. There is no mass or pulsatile mass. Tenderness: There is abdominal tenderness (mild) in the suprapubic area. There is no guarding or rebound. Negative signs include Harris's sign and McBurney's sign. Neurological: Mental Status: She is alert and oriented to person, place, and time. Psychiatric: Mood and Affect: Affect normal. Calculated Creatinine clearance 34ml/min ASSESSMENT/PLAN: 1. Urinary frequency - ICD9: 788.41, ICD10: R35.0 (primary diagnosis) acute - UA positive for jhon esterase and hematuria - Send urine for culture - Begin treatment with kelfex for 7 days - Patient education for prevention given - UA DIP, URINE (POC) - URINE CULTURE 2. Acute lower UTI - ICD9: 599.0, ICD10: N39.0 keflx for 7 days Tylenol as needed for discomfort AZO otc Increase hydration -Follow up with PCP or return to clinic if symptoms not improving in 3 days or if you develop any new (or worsening) symptoms such as fever, chills or back pain go to ER. Diagnosis and treatment plan were discussed and questions were answered to the patient's satisfaction. Pt acknowledged understanding of concepts and follow up plan. Specific signs and symptoms that would indicate the need for higher level of care were discussed in detail warranting prompt ER evaluation. Patsy Guardado APRN.DAYANA documented in this encounter [facility] 06-25-2022 Instructions Patsy Guardado APRN.CNP - 06/25/2022 9:27 AM EDT keflx for 7 days Tylenol as needed for discomfort AZO otc Increase hydration -Follow up with PCP or return to clinic if symptoms not improving in 3 days or if you develop any new (or worsening) symptoms such as fever, chills or back pain go to ER. documented in this encounter [facility] 02-06-2022 Miscellaneous Notes Patient has been identified by name and date of : Yes Patient phones for refill(s): Pending Prescriptions Disp Refills SIDDHARTHAGLPRICILLA KWIKPEN U-100 INSULIN 100 UNIT/ML (3 ML) SUBCUTANEOUS 5 Pen 11 Sig: Inject 11 Units subcutaneously daily at bedtime. GILDARDO: No Date of last office visit in primary care: 10/21/2021; Future Appt. 05/24/2022 Last 2 Encounter Wt Readings: Date: Wt: 01/05/2022 78.6 kg (173 lb 3.2 oz) 10/21/2021 78.9 kg (174 lb) Previous labs/tests for medication: Diabetes: Hemoglobin A1C (%) Date Value 09/15/2021 7.4 05/23/2021 7.5 Please advise. Thank you. Miriam Pepe RN documented in this encounter [facility] 01-03-2020 History of Past i llness Narrative Problem Noted Date Resolved Date ACS (acute coronary syndrome) 01/03/2020 BCC (basal cell carcinoma), arm 05/25/2016 03/21/2017 Overview: Hyperlipemia 10/20/2013 10/23/2015 Meningioma 10/20/2013 02/22/2015 Abnormal mammogram, unspecified 08/19/2013 02/22/2015 Occipital neuralgia 02/25/2013 02/22/2015 Diverticulosis 08/16/2012 02/22/2015 Eustachian tube dysfunction 08/30/200902/04 Urgency of urination 08/19/2009 02/22/2015 Postmenopausal atrophic vaginitis 08/19/2009 02/22/2015 Labyrinthine dysfunction, 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 Continues to follow with Neurology with periodic MRI evaluations. DIABETES TYPE II W NEURO MANIFESTATIONS 12/24/19 09 08/25/2014 Dermatophytosis of nail 12/24/2008 02/23/20 15 Leiomyoma of uterus, unspecified 11/04/2007 03/21/2017 Mucous polyp of cervix 11/04/2007 5 Abdominal pain, unspecified site 08/06/2007 12/26/2008 Unspecified cardiovascular disease 03/21/2017 Overview: Dr.Ken Reyes, Last Stress 02/04/08, negative Type II or unspecified type diabetes mellitus without mention of complication, uncontrolled 12/26/2008 documented as of this encounter (statuses as of 02/06/2022) [facility] History of Past illness Narrative* Problem Noted Date Resolved Date ACS (acute coronary syndrome) 01/03/2020 BCC (basal cell carcinoma), arm 05/25/2016 03/21/2017 Overview: Hyperlipemia 10/20/2013 10/23/2015 Meningioma 10/20/2013 02/22/2015 Abnormal mammogram, unspecified 08/19/2013 02/22/2015 Occipital neuralgia 02/25/2013 02/22/2015 Diverticulosis 08/16/2012 02/22/2015 Eustachian tube dysfunction 08/30/200902/04 Urgency of urination 08/19/2009 02/22/2015 Postmenopausal atrophic vaginitis 08/19/2009 02/22/2015 Labyrinthine dysfunction, unspecified 12/26/2008 02/22/2015 Overview: 10/13 -Seeing ENT, Vestibular Retraining via PT Benign neoplasm of cerebral meninges 12/26/2008 02/11/2020 Overview: Neuro Referral: Daija Kaden, 10/19/08, Dx: A incidental ventromedial foramen magnum meningioma, 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 Continues to follow with Neurology with periodic MRI evaluations. DIABETES TYPE II W NEURO MANIFESTATIONS 12/24/19 09 08/25/2014 Dermatophytosis of nail 12/24/2008 02/23/20 15 Leiomyoma of uterus, unspecified 11/04/2007 03/21/2017 Mucous polyp of cervix 11/04/2007 5 Abdominal pain, unspecified site 08/06/2007 12/26/2008 Unspecified cardiovascular disease 03/21/2017 Overview: Dr.Ken Reyes, Last Stress 02/04/08, negative Type II or unspecified type diabetes mellitus without mention of complication, uncontrolled 12/26/2008 documented as of this encounter (statuses as of 06/25/2022) [facility] History of Past illness Narrative* Problem Noted Date Resolved Date ACS (acute coronary syndrome) 01/03/2020 BCC (basal cell carcinoma), arm 05/25/2016 03/21/2017 Overview: Hyperlipemia 10/20/2013 10/23/2015 Meningioma 10/20/2013 02/22/2015 Abnormal mammogram, unspecified 08/19/2013 02/22/2015 Occipital neuralgia 02/25/2013 02/22/2015 Diverticulosis 08/16/2012 02/22/2015 Eustachian tube dysfunction 08/30/200902/04 Urgency of urination 08/19/2009 02/22/2015 Postmenopausal atrophic vaginitis 08/19/2009 02/22/2015 Labyrinthine dysfunction, 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 Continues to follow with Neurology with periodic MRI evaluations. DIABETES TYPE II W NEURO MANIFESTATIONS 12/24/19 09 08/25/2014 Dermatophytosis of nail 12/24/2008 02/23/20 15 Leiomyoma of uterus, unspecified 11/04/2007 03/21/2017 Mucous polyp of cervix 11/04/2007 5 Abdominal pain, unspecified site 08/06/2007 12/26/2008 Unspecified cardiovascular disease 03/21/2017 Overview: Dr.Ken Reyes, Last Stress 02/04/08, negative Type II or unspecified type diabetes mellitus without mention of complication, uncontrolled 12/26/2008 documented as of this encounter (statuses as of 06/26/2022) [facility] History of Past illness Narrative* Problem Noted Date Resolved Date ACS (acute coronary syndrome) 01/03/2020 BCC (basal cell carcinoma), arm 05/25/2016 03/21/2017 Overview: Hyperlipemia 10/20/2013 10/23/2015 Meningioma 10/20/2013 02/22/2015 Abnormal mammogram, unspecified 08/19/2013 02/22/2015 Occipital neuralgia 02/25/2013 02/22/2015 Diverticulosis 08/16/2012 02/22/2015 Eustachian tube dysfunction 08/30/200902/04 Urgency of urination 08/19/2009 02/22/2015 Postmenopausal atrophic vaginitis 08/19/2009 02/22/2015 Labyrinthine dysfunction, unspecified 12/26/2008 02/22/2015 Overview: 10/13 -Seeing ENT, Vestibular Retraining via PT Benign neoplasm of cerebral meninges 12/26/2008 02/11/2020 Overview: Neuro Referral: Cheloni Kaden, 10/19/08, Dx: A incidental ventromedial foramen magnum meningioma, 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 Continues to follow with Neurology with periodic MRI evaluations. DIABETES TYPE II W NEURO MANIFESTATIONS 12/24/19 09 08/25/2014 Dermatophytosis of nail 12/24/2008 02/23/20 15 Leiomyoma of uterus, unspecified 11/04/2007 03/21/2017 Mucous polyp of cervix 11/04/2007 5 Abdominal pain, unspecified site 08/06/2007 12/26/2008 Unspecified cardiovascular disease 03/21/2017 Overview: Dr.Ken Reyes, Last Stress 02/04/08, negative Type II or unspecified type diabetes mellitus without mention of complication, uncontrolled 12/26/2008 documented as of this encounter (statuses as of 06/28/2022) [facility]2020 History of Past illness Narrative* Problem Noted Date Resolved Date ACS (acute coronary syndrome) 01/03/2020 BCC (basal cell carcinoma), arm 05/25/2016 03/21/2017 Overview: Hyperlipemia 10/20/2013 10/23/2015 Meningioma 10/20/2013 02/22/2015 Abnormal mammogram, unspecified 08/19/2013 02/22/2015 Occipital neuralgia 02/25/2013 02/22/2015 Diverticulosis 08/16/2012 02/22/2015 Eustachian tube dysfunction 08/30/200902/04 Urgency of urination 08/19/2009 02/22/2015 Postmenopausal atrophic vaginitis 08/19/2009 02/22/2015 Labyrinthine dysfunction, unspecified 12/26/2008 02/22/2015 Overview: 10/13 -Seeing ENT, Vestibular Retraining via PT Benign neoplasm of cerebral meninges 12/26/2008 02/11/2020 Overview: Neuro Referral: Cheloni Kaden, 10/19/08, Dx: A incidental ventromedial foramen magnum meningioma, 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 Continues to follow with Neurology with periodic MRI evaluations. DIABETES TYPE II W NEURO MANIFESTATIONS 12/24/19 09 08/25/2014 Dermatophytosis of nail 12/24/2008 02/23/20 15 Leiomyoma of uterus, unspecified 11/04/2007 03/21/2017 Mucous polyp of cervix 11/04/2007 5 Abdominal pain, unspecified site 08/06/2007 12/26/2008 Unspecified cardiovascular disease 03/21/2017 Overview: Dr.Ken Reyes, Last Stress 02/04/08, negative Type II or unspecified type diabetes mellitus without mention of complication, uncontrolled 12/26/2008 documented as of this encounter (statuses as of 08/22/2022) [facility] History of Past illness Narrative* Problem Noted Date Resolved Date ACS (acute coronary syndrome) 01/03/2020 BCC (basal cell carcinoma), arm 05/25/2016 03/21/2017 Overview: Hyperlipemia 10/20/2013 10/23/2015 Meningioma 10/20/2013 02/22/2015 Abnormal mammogram, unspecified 08/19/2013 02/22/2015 Occipital neuralgia 02/25/2013 02/22/2015 Diverticulosis 08/16/2012 02/22/2015 Eustachian tube dysfunction 08/30/200902/04 Urgency of urination 08/19/2009 02/22/2015 Postmenopausal atrophic vaginitis 08/19/2009 02/22/2015 Labyrinthine dysfunction, 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 Continues to follow with Neurology with periodic MRI evaluations. DIABETES TYPE II W NEURO MANIFESTATIONS 12/24/19 09 08/25/2014 Dermatophytosis of nail 12/24/2008 02/23/20 15 Leiomyoma of uterus, unspecified 11/04/2007 03/21/2017 Mucous polyp of cervix 11/04/2007 5 Abdominal pain, unspecified site 08/06/2007 12/26/2008 Unspecified cardiovascular disease 03/21/2017 Overview: Dr.Ken Reyes, Last Stress 02/04/08, negative Type II or unspecified type diabetes mellitus without mention of complication, uncontrolled 12/26/2008 documented as of this encounter (statuses as of 12/25/2022) [facility] History of Past illness Narrative* Problem Noted Date Resolved Date ACS (acute coronary syndrome) 01/03/2020 BCC (basal cell carcinoma), arm 05/25/2016 03/21/2017 Overview: Hyperlipemia 10/20/2013 10/23/2015 Meningioma 10/20/2013 02/22/2015 Abnormal mammogram, unspecified 08/19/2013 02/22/2015 Occipital neuralgia 02/25/2013 02/22/2015 Diverticulosis 08/16/2012 02/22/2015 Eustachian tube dysfunction 08/30/200902/04 Urgency of urination 08/19/2009 02/22/2015 Postmenopausal atrophic vaginitis 08/19/2009 02/22/2015 Labyrinthine dysfunction, 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 Continues to follow with Neurology with periodic MRI evaluations. DIABETES TYPE II W NEURO MANIFESTATIONS 12/24/19 09 08/25/2014 Dermatophytosis of nail 12/24/2008 02/23/20 15 Leiomyoma of uterus, unspecified 11/04/2007 03/21/2017 Mucous polyp of cervix 11/04/2007 5 Abdominal pain, unspecified site 08/06/2007 12/26/2008 Unspecified cardiovascular disease 03/21/2017 Overview: Dr.Ken Reyes, Last Stress 02/04/08, negative Type II or unspecified type diabetes mellitus without mention of complication, uncontrolled 12/26/2008 documented as of this encounter (statuses as of 01/01/2023) [facility] History of Past illness Narrative* Problem Noted Date Resolved Date ACS (acute coronary syndrome) 01/03/2020 BCC (basal cell carcinoma), arm 05/25/2016 03/21/2017 Overview: Hyperlipemia 10/20/2013 10/23/2015 Meningioma 10/20/2013 02/22/2015 Abnormal mammogram, unspecified 08/19/2013 02/22/2015 Occipital neuralgia 02/25/2013 02/22/2015 Diverticulosis 08/16/2012 02/22/2015 Eustachian tube dysfunction 08/30/200902/04 Urgency of urination 08/19/2009 02/22/2015 Postmenopausal atrophic vaginitis 08/19/2009 02/22/2015 Labyrinthine dysfunction, 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 Continues to follow with Neurology with periodic MRI evaluations. DIABETES TYPE II W NEURO MANIFESTATIONS 12/24/19 09 08/25/2014 Dermatophytosis of nail 12/24/2008 02/23/20 15 Leiomyoma of uterus, unspecified 11/04/2007 03/21/2017 Mucous polyp of cervix 11/04/2007 5 Abdominal pain, unspecified site 08/06/2007 12/26/2008 Unspecified cardiovascular disease 03/21/2017 Overview: Dr.Ken Reyes, Last Stress 02/04/08, negative Type II or unspecified type diabetes mellitus without mention of complication, uncontrolled 12/26/2008 documented as of this encounter (statuses as of 01/02/2023) [facility] History of Past illness Narrative* Problem Noted Date Resolved Date ACS (acute coronary syndrome) 01/03/2020 BCC (basal cell carcinoma), arm 05/25/2016 03/21/2017 Overview: Hyperlipemia 10/20/2013 10/23/2015 Meningioma 10/20/2013 02/22/2015 Abnormal mammogram, unspecified 08/19/2013 02/22/2015 Occipital neuralgia 02/25/2013 02/22/2015 Diverticulosis 08/16/2012 02/22/2015 Eustachian tube dysfunction 08/30/200902/04 Urgency of urination 08/19/2009 02/22/2015 Postmenopausal atrophic vaginitis 08/19/2009 02/22/2015 Labyrinthine dysfunction, 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 Continues to follow with Neurology with periodic MRI evaluations. DIABETES TYPE II W NEURO MANIFESTATIONS 12/24/19 09 08/25/2014 Dermatophytosis of nail 12/24/2008 02/23/20 15 Leiomyoma of uterus, unspecified 11/04/2007 03/21/2017 Mucous polyp of cervix 11/04/2007 5 Abdominal pain, unspecified site 08/06/2007 12/26/2008 Unspecified cardiovascular disease 03/21/2017 Overview: Dr.Ken Reyes, Last Stress 02/04/08, negative Type II or unspecified type diabetes mellitus without mention of complication, uncontrolled 12/26/2008 documented as of this encounter (statuses as of 01/02/2023) [facility] History of Past illness Narrative* Problem Noted Date Resolved Date ACS (acute coronary syndrome) 01/03/2020 BCC (basal cell carcinoma), arm 05/25/2016 03/21/2017 Overview: Hyperlipemia 10/20/2013 10/23/2015 Meningioma 10/20/2013 02/22/2015 Abnormal mammogram, unspecified 08/19/2013 02/22/2015 Occipital neuralgia 02/25/2013 02/22/2015 Diverticulosis 08/16/2012 02/22/2015 Eustachian tube dysfunction 08/30/200902/04 Urgency of urination 08/19/2009 02/22/2015 Postmenopausal atrophic vaginitis 08/19/2009 02/22/2015 Labyrinthine dysfunction, 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 Continues to follow with Neurology with periodic MRI evaluations. DIABETES TYPE II W NEURO MANIFESTATIONS 12/24/19 09 08/25/2014 Dermatophytosis of nail 12/24/2008 02/23/20 15 Leiomyoma of uterus, unspecified 11/04/2007 03/21/2017 Mucous polyp of cervix 11/04/2007 5 Abdominal pain, unspecified site 08/06/2007 12/26/2008 Unspecified cardiovascular disease 03/21/2017 Overview: Dr.Ken Reyes, Last Stress 02/04/08, negative Type II or unspecified type diabetes mellitus without mention of complication, uncontrolled 12/26/2008 documented as of this encounter (statuses as of 01/11/2023) [facility] History of Past illness Narrative* Problem Noted Date Resolved Date ACS (acute coronary syndrome) 01/03/2020 BCC (basal cell carcinoma), arm 05/25/2016 03/21/2017 Overview: Hyperlipemia 10/20/2013 10/23/2015 Meningioma 10/20/2013 02/22/2015 Abnormal mammogram, unspecified 08/19/2013 02/22/2015 Occipital neuralgia 02/25/2013 02/22/2015 Diverticulosis 08/16/2012 02/22/2015 Eustachian tube dysfunction 08/30/200902/04 Urgency of urination 08/19/2009 02/22/2015 Postmenopausal atrophic vaginitis 08/19/2009 02/22/2015 Labyrinthine dysfunction, 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 Continues to follow with Neurology with periodic MRI evaluations. DIABETES TYPE II W NEURO MANIFESTATIONS 12/24/19 09 08/25/2014 Dermatophytosis of nail 12/24/2008 02/23/20 15 Leiomyoma of uterus, unspecified 11/04/2007 03/21/2017 Mucous polyp of cervix 11/04/2007 5 Abdominal pain, unspecified site 08/06/2007 12/26/2008 Unspecified cardiovascular disease 03/21/2017 Overview: Dr.Ken Reyes, Last Stress 02/04/08, negative Type II or unspecified type diabetes mellitus without mention of complication, uncontrolled 12/26/2008 documented as of this encounter (statuses as of 01/12/2023) [facility] History of Past illness Narrative* Problem Noted Date Resolved Date ACS (acute coronary syndrome) 01/03/2020 BCC (basal cell carcinoma), arm 05/25/2016 03/21/2017 Overview: Hyperlipemia 10/20/2013 10/23/2015 Meningioma 10/20/2013 02/22/2015 Abnormal mammogram, unspecified 08/19/2013 02/22/2015 Occipital neuralgia 02/25/2013 02/22/2015 Diverticulosis 08/16/2012 02/22/2015 Eustachian tube dysfunction 08/30/200902/04 Urgency of urination 08/19/2009 02/22/2015 Postmenopausal atrophic vaginitis 08/19/2009 02/22/2015 Labyrinthine dysfunction, 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 Continues to follow with Neurology with periodic MRI evaluations. DIABETES TYPE II W NEURO MANIFESTATIONS 12/24/19 09 08/25/2014 Dermatophytosis of nail 12/24/2008 02/23/20 15 Leiomyoma of uterus, unspecified 11/04/2007 03/21/2017 Mucous polyp of cervix 11/04/2007 5 Abdominal pain, unspecified site 08/06/2007 12/26/2008 Unspecified cardiovascular disease 03/21/2017 Overview: Dr.Ken Reyes, Last Stress 02/04/08, negative Type II or unspecified type diabetes mellitus without mention of complication, uncontrolled 12/26/2008 documented as of this encounter (statuses as of 02/27/2023) [facility] History of Past illness Narrative* Problem Noted Date Resolved Date ACS (acute coronary syndrome) 01/03/2020 BCC (basal cell carcinoma), arm 05/25/2016 03/21/2017 Overview: Hyperlipemia 10/20/2013 10/23/2015 Meningioma 10/20/2013 02/22/2015 Abnormal mammogram, unspecified 08/19/2013 02/22/2015 Occipital neuralgia 02/25/2013 02/22/2015 Diverticulosis 08/16/2012 02/22/2015 Eustachian tube dysfunction 08/30/200902/04 Urgency of urination 08/19/2009 02/22/2015 Postmenopausal atrophic vaginitis 08/19/2009 02/22/2015 Labyrinthine dysfunction, 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 Continues to follow with Neurology with periodic MRI evaluations. DIABETES TYPE II W NEURO MANIFESTATIONS 12/24/19 09 08/25/2014 Dermatophytosis of nail 12/24/2008 02/23/20 15 Leiomyoma of uterus, unspecified 11/04/2007 03/21/2017 Mucous polyp of cervix 11/04/2007 5 Abdominal pain, unspecified site 08/06/2007 12/26/2008 Unspecified cardiovascular disease 03/21/2017 Overview: Dr.Ken Reyes, Last Stress 02/04/08, negative Type II or unspecified type diabetes mellitus without mention of complication, uncontrolled 12/26/2008 documented as of this encounter (statuses as of 03/14/2023) [facility] History of Past illness Narrative* Problem Noted Date Resolved Date ACS (acute coronary syndrome) 01/03/2020 BCC (basal cell carcinoma), arm 05/25/2016 03/21/2017 Overview: Hyperlipemia 10/20/2013 10/23/2015 Meningioma 10/20/2013 02/22/2015 Abnormal mammogram, unspecified 08/19/2013 02/22/2015 Occipital neuralgia 02/25/2013 02/22/2015 Diverticulosis 08/16/2012 02/22/2015 Eustachian tube dysfunction 08/30/200902/04 Urgency of urination 08/19/2009 02/22/2015 Postmenopausal atrophic vaginitis 08/19/2009 02/22/2015 Labyrinthine dysfunction, 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 Continues to follow with Neurology with periodic MRI evaluations. DIABETES TYPE II W NEURO MANIFESTATIONS 12/24/19 09 08/25/2014 Dermatophytosis of nail 12/24/2008 02/23/20 15 Leiomyoma of uterus, unspecified 11/04/2007 03/21/2017 Mucous polyp of cervix 11/04/2007 5 Abdominal pain, unspecified site 08/06/2007 12/26/2008 Unspecified cardiovascular disease 03/21/2017 Overview: Dr.Ken Reyes, Last Stress 02/04/08, negative Type II or unspecified type diabetes mellitus without mention of complication, uncontrolled 12/26/2008 documented as of this encounter (statuses as of 04/25/2023) [facility] History of Past illness Narrative* Problem Noted Date Diagnosed Date Resolved Date ACS (acute coronary syndrome) 01/03/2020 02/11/2020 BCC (basal cell carcinoma), arm 05/25/2016 03/21/2017 Overview: Hyperlipemia 10/20/2013 10/23/2015 Meningioma 10/20/2013 02/22/2015 Abnormal mammogram, unspecified 08/19/2013 02/22/2015 Occipital neuralgia 02/25/2013 02/23/20 15 Diverticulosis 08/16/2012 02/22/2015 Eustachian tube dysfunction 08/30/2009 02/22/2015 Urgency of urination 08/19/2009 015 Postmenopausal atrophic vaginitis 08/19/2009 02/22/2015 Labyrinthine dysfunction, 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 Continues to follow with Neurology with periodic MRI evaluations. DIABETES TYPE II W NEURO MANIFESTATIONS 12/24/2008 08/25/2014 Dermatophytosis of nail 12/24/200802/04 Leiomyoma of uterus, unspecified 11/04/2007 03/21/2017 Mucous polyp of cervix 11/04/200702/22 Abdominal pain, unspecified site 08/06/2007 12/26/2008 Unspecified cardiovascular disease 03/21/2017 Overview: Dr.Ken Reyes, Last Stress 02/04/08, negative Type II or unspecified type diabetes mellitus without mention of complication, uncontrolled 12/26/2008 documented as of this encounter (statuses as of 06/01/2023) [facility] History of Past illness Narrative* Problem Noted Date Diagnosed Date Resolved Date ACS (acute coronary syndrome) 01/03/2020 02/11/2020 BCC (basal cell carcinoma), arm 05/25/2016 03/21/2017 Overview: Hyperlipemia 10/20/2013 10/23/2015 Meningioma 10/20/2013 02/22/2015 Abnormal mammogram, unspecified 08/19/2013 02/22/2015 Occipital neuralgia 02/25/2013 02/23/20 15 Diverticulosis 08/16/2012 02/22/2015 Eustachian tube dysfunction 08/30/2009 02/22/2015 Urgency of urination 08/19/2009 015 Postmenopausal atrophic vaginitis 08/19/2009 02/22/2015 Labyrinthine dysfunction, 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 Continues to follow with Neurology with periodic MRI evaluations. DIABETES TYPE II W NEURO MANIFESTATIONS 12/24/2008 08/25/2014 Dermatophytosis of nail 12/24/200802/04 Leiomyoma of uterus, unspecified 11/04/2007 03/21/2017 Mucous polyp of cervix 11/04/200702/22 Abdominal pain, unspecified site 08/06/2007 12/26/2008 Unspecified cardiovascular disease 03/21/2017 Overview: Dr.Ken Reyes, Last Stress 02/04/08, negative Type II or unspecified type diabetes mellitus without mention of complication, uncontrolled 12/26/2008 documented as of this encounter (statuses as of 07/02/2023) [facility] History of Past illness Narrative* Problem Noted Date Diagnosed Date Resolved Date ACS (acute coronary syndrome) 01/03/2020 02/11/2020 BCC (basal cell carcinoma), arm 05/25/2016 03/21/2017 Overview: Hyperlipemia 10/20/2013 10/23/2015 Meningioma 10/20/2013 02/22/2015 Abnormal mammogram, unspecified 08/19/2013 02/22/2015 Occipital neuralgia 02/25/2013 02/23/20 15 Diverticulosis 08/16/2012 02/22/2015 Eustachian tube dysfunction 08/30/2009 02/22/2015 Urgency of urination 08/19/2009 015 Postmenopausal atrophic vaginitis 08/19/2009 02/22/2015 Labyrinthine dysfunction, unspecified 12/26/2008 02/22/2015 Overview: 10/13 -Seeing ENT, Vestibular Retraining via PT Benign neoplasm of cerebral meninges 12/26/2008 02/11/2020 Overview: Neuro Referral: Daija Kaden, 10/19/08, Dx: A incidental ventromedial foramen magnum meningioma, 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 Continues to follow with Neurology with periodic MRI evaluations. DIABETES TYPE II W NEURO MANIFESTATIONS 12/24/2008 08/25/2014 Dermatophytosis of nail 12/24/200802/04 Leiomyoma of uterus, unspecified 11/04/2007 03/21/2017 Mucous polyp of cervix 11/04/200702/22 Abdominal pain, unspecified site 08/06/2007 12/26/2008 Unspecified cardiovascular disease 03/21/2017 Overview: Dr.Ken Reyes, Last Stress 02/04/08, negative Type II or unspecified type diabetes mellitus without mention of complication, uncontrolled 12/26/2008 documented as of this encounter (statuses as of 07/21/2023) [facility] History of Past illness Narrative* Problem Noted Date Diagnosed Date Resolved Date ACS (acute coronary syndrome) 01/03/2020 02/11/2020 BCC (basal cell carcinoma), arm 05/25/2016 03/21/2017 Overview: Hyperlipemia 10/20/2013 10/23/2015 Meningioma 10/20/2013 02/22/2015 Abnormal mammogram, unspecified 08/19/2013 02/22/2015 Occipital neuralgia 02/25/2013 02/23/20 15 Diverticulosis 08/16/2012 02/22/2015 Eustachian tube dysfunction 08/30/2009 02/22/2015 Urgency of urination 08/19/2009 015 Postmenopausal atrophic vaginitis 08/19/2009 02/22/2015 Labyrinthine dysfunction, 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 Continues to follow with Neurology with periodic MRI evaluations. DIABETES TYPE II W NEURO MANIFESTATIONS 12/24/2008 08/25/2014 Dermatophytosis of nail 12/24/200802/04 Leiomyoma of uterus, unspecified 11/04/2007 03/21/2017 Mucous polyp of cervix 11/04/200702/22 Abdominal pain, unspecified site 08/06/2007 12/26/2008 Unspecified cardiovascular disease 03/21/2017 Overview: Dr.Ken Reyes, Last Stress 02/04/08, negative Type II or unspecified type diabetes mellitus without mention of complication, uncontrolled 12/26/2008 documented as of this encounter (statuses as of 07/24/2023) [facility] History of Past illness Narrative* Problem Noted Date Diagnosed Date Resolved Date ACS (acute coronary syndrome) 01/03/2020 02/11/2020 BCC (basal cell carcinoma), arm 05/25/2016 03/21/2017 Overview: Hyperlipemia 10/20/2013 10/23/2015 Meningioma 10/20/2013 02/22/2015 Abnormal mammogram, unspecified 08/19/2013 02/22/2015 Occipital neuralgia 02/25/2013 02/23/20 15 Diverticulosis 08/16/2012 02/22/2015 Eustachian tube dysfunction 08/30/2009 02/22/2015 Urgency of urination 08/19/2009 015 Postmenopausal atrophic vaginitis 08/19/2009 02/22/2015 Labyrinthine dysfunction, 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 Continues to follow with Neurology with periodic MRI evaluations. DIABETES TYPE II W NEURO MANIFESTATIONS 12/24/2008 08/25/2014 Dermatophytosis of nail 12/24/200802/04 Leiomyoma of uterus, unspecified 11/04/2007 03/21/2017 Mucous polyp of cervix 11/04/200702/22 Abdominal pain, unspecified site 08/06/2007 12/26/2008 Unspecified cardiovascular disease 03/21/2017 Overview: Dr.Ken Reyes, Last Stress 02/04/08, negative Type II or unspecified type diabetes mellitus without mention of complication, uncontrolled 12/26/2008 documented as of this encounter (statuses as of 08/23/2023) [facility] History of Past illness Narrative* Problem Noted Date Diagnosed Date Resolved Date ACS (acute coronary syndrome) 01/03/2020 02/11/2020 BCC (basal cell carcinoma), arm 05/25/2016 03/21/2017 Overview: Hyperlipemia 10/20/2013 10/23/2015 Meningioma 10/20/2013 02/22/2015 Abnormal mammogram, unspecified 08/19/2013 02/22/2015 Occipital neuralgia 02/25/2013 02/23/20 15 Diverticulosis 08/16/2012 02/22/2015 Eustachian tube dysfunction 08/30/2009 02/22/2015 Urgency of urination 08/19/2009 015 Postmenopausal atrophic vaginitis 08/19/2009 02/22/2015 Labyrinthine dysfunction, 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 Continues to follow with Neurology with periodic MRI evaluations. DIABETES TYPE II W NEURO MANIFESTATIONS 12/24/2008 08/25/2014 Dermatophytosis of nail 12/24/200802/04 Leiomyoma of uterus, unspecified 11/04/2007 03/21/2017 Mucous polyp of cervix 11/04/200702/22 Abdominal pain, unspecified site 08/06/2007 12/26/2008 Unspecified cardiovascular disease 03/21/2017 Overview: Dr.Ken Reyes, Last Stress 02/04/08, negative Type II or unspecified type diabetes mellitus without mention of complication, uncontrolled 12/26/2008 documented as of this encounter (statuses as of 09/03/2023) [facility] History of Past illness Narrative* Problem Noted Date Diagnosed Date Resolved Date ACS (acute coronary syndrome) 01/03/2020 02/11/2020 BCC (basal cell carcinoma), arm 05/25/2016 03/21/2017 Overview: Hyperlipemia 10/20/2013 10/23/2015 Meningioma 10/20/2013 02/22/2015 Abnormal mammogram, unspecified 08/19/2013 02/22/2015 Occipital neuralgia 02/25/2013 02/23/20 15 Diverticulosis 08/16/2012 02/22/2015 Eustachian tube dysfunction 08/30/2009 02/22/2015 Urgency of urination 08/19/2009 015 Postmenopausal atrophic vaginitis 08/19/2009 02/22/2015 Labyrinthine dysfunction, unspecified 12/26/2008 02/22/2015 Overview: 10/13 -Seeing ENT, Vestibular Retraining via PT Benign neoplasm of cerebral meninges 12/26/2008 02/11/2020 Overview: Neuro Referral: Daija Alfnoso, 10/19/08, Dx: A incidental ventromedial foramen magnum meningioma, 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 Continues to follow with Neurology with periodic MRI evaluations. DIABETES TYPE II W NEURO MANIFESTATIONS 12/24/2008 08/25/2014 Dermatophytosis of nail 12/24/200802/04 Leiomyoma of uterus, unspecified 11/04/2007 03/21/2017 Mucous polyp of cervix 11/04/200702/22 Abdominal pain, unspecified site 08/06/2007 12/26/2008 Unspecified cardiovascular disease 03/21/2017 Overview: Dr.Ken Reyes, Last Stress 02/04/08, negative Type II or unspecified type diabetes mellitus without mention of complication, uncontrolled 12/26/2008 documented as of this encounter (statuses as of 09/05/2023) [facility] History of Past illness Narrative* Problem Noted Date Diagnosed Date Resolved Date ACS (acute coronary syndrome) 01/03/2020 02/11/2020 BCC (basal cell carcinoma), arm 05/25/2016 03/21/2017 Overview: Hyperlipemia 10/20/2013 10/23/2015 Meningioma 10/20/2013 02/22/2015 Abnormal mammogram, unspecified 08/19/2013 02/22/2015 Occipital neuralgia 02/25/2013 02/23/20 15 Diverticulosis 08/16/2012 02/22/2015 Eustachian tube dysfunction 08/30/2009 02/22/2015 Urgency of urination 08/19/2009 015 Postmenopausal atrophic vaginitis 08/19/2009 02/22/2015 Labyrinthine dysfunction, 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 Continues to follow with Neurology with periodic MRI evaluations. DIABETES TYPE II W NEURO MANIFESTATIONS 12/24/2008 08/25/2014 Dermatophytosis of nail 12/24/200802/04 Leiomyoma of uterus, unspecified 11/04/2007 03/21/2017 Mucous polyp of cervix 11/04/200702/22 Abdominal pain, unspecified site 08/06/2007 12/26/2008 Unspecified cardiovascular disease 03/21/2017 Overview: Dr.Ken Reyes, Last Stress 02/04/08, negative Type II or unspecified type diabetes mellitus without mention of complication, uncontrolled 12/26/2008 documented as of this encounter (statuses as of 09/11/2023) [facility] History of Past illness Narrative* Problem Noted Date Diagnosed Date Resolved Date ACS (acute coronary syndrome) 01/03/2020 02/11/2020 BCC (basal cell carcinoma), arm 05/25/2016 03/21/2017 Overview: Hyperlipemia 10/20/2013 10/23/2015 Meningioma 10/20/2013 02/22/2015 Abnormal mammogram, unspecified 08/19/2013 02/22/2015 Occipital neuralgia 02/25/2013 02/23/20 15 Diverticulosis 08/16/2012 02/22/2015 Eustachian tube dysfunction 08/30/2009 02/22/2015 Urgency of urination 08/19/2009 015 Postmenopausal atrophic vaginitis 08/19/2009 02/22/2015 Labyrinthine dysfunction, 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 Continues to follow with Neurology with periodic MRI evaluations. DIABETES TYPE II W NEURO MANIFESTATIONS 12/24/2008 08/25/2014 Dermatophytosis of nail 12/24/200802/04 Leiomyoma of uterus, unspecified 11/04/2007 03/21/2017 Mucous polyp of cervix 11/04/200702/22 Abdominal pain, unspecified site 08/06/2007 12/26/2008 Unspecified cardiovascular disease 03/21/2017 Overview: Dr.Ken Reyes, Last Stress 02/04/08, negative Type II or unspecified type diabetes mellitus without mention of complication, uncontrolled 12/26/2008 documented as of this encounter (statuses as of 09/14/2023) [facility] History of Past illness Narrative* Problem Noted Date Diagnosed Date Resolved Date ACS (acute coronary syndrome) 01/03/2020 02/11/2020 BCC (basal cell carcinoma), arm 05/25/2016 03/21/2017 Overview: Hyperlipemia 10/20/2013 10/23/2015 Meningioma 10/20/2013 02/22/2015 Abnormal mammogram, unspecified 08/19/2013 02/22/2015 Occipital neuralgia 02/25/2013 02/23/20 15 Diverticulosis 08/16/2012 02/22/2015 Eustachian tube dysfunction 08/30/2009 02/22/2015 Urgency of urination 08/19/2009 015 Postmenopausal atrophic vaginitis 08/19/2009 02/22/2015 Labyrinthine dysfunction, 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 Continues to follow with Neurology with periodic MRI evaluations. DIABETES TYPE II W NEURO MANIFESTATIONS 12/24/2008 08/25/2014 Dermatophytosis of nail 12/24/200802/04 Leiomyoma of uterus, unspecified 11/04/2007 03/21/2017 Mucous polyp of cervix 11/04/200702/22 Abdominal pain, unspecified site 08/06/2007 12/26/2008 Unspecified cardiovascular disease 03/21/2017 Overview: Dr.Ken Reyes, Last Stress 02/04/08, negative Type II or unspecified type diabetes mellitus without mention of complication, uncontrolled 12/26/2008 documented as of this encounter (statuses as of 09/15/2023) [facility] History of Past illness Narrative* Problem Noted Date Diagnosed Date Resolved Date ACS (acute coronary syndrome) 01/03/2020 02/11/2020 BCC (basal cell carcinoma), arm 05/25/2016 03/21/2017 Overview: Hyperlipemia 10/20/2013 10/23/2015 Meningioma 10/20/2013 02/22/2015 Abnormal mammogram, unspecified 08/19/2013 02/22/2015 Occipital neuralgia 02/25/2013 02/23/20 15 Diverticulosis 08/16/2012 02/22/2015 Eustachian tube dysfunction 08/30/2009 02/22/2015 Urgency of urination 08/19/2009 015 Postmenopausal atrophic vaginitis 08/19/2009 02/22/2015 Labyrinthine dysfunction, unspecified 12/26/2008 02/22/2015 Overview: 10/13 -Seeing ENT, Vestibular Retraining via PT Benign neoplasm of cerebral meninges 12/26/2008 02/11/2020 Overview: Neuro Referral: Daija Kaden, 10/19/08, Dx: A incidental ventromedial foramen magnum meningioma, 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 Continues to follow with Neurology with periodic MRI evaluations. DIABETES TYPE II W NEURO MANIFESTATIONS 12/24/2008 08/25/2014 Dermatophytosis of nail 12/24/200802/04 Leiomyoma of uterus, unspecified 11/04/2007 03/21/2017 Mucous polyp of cervix 11/04/200702/22 Abdominal pain, unspecified site 08/06/2007 12/26/2008 Unspecified cardiovascular disease 03/21/2017 Overview: Dr.Ken Reyes, Last Stress 02/04/08, negative Type II or unspecified type diabetes mellitus without mention of complication, uncontrolled 12/26/2008 documented as of this encounter (statuses as of 09/20/2023) [facility] History of Past illness Narrative* Problem Noted Date Diagnosed Date Resolved Date ACS (acute coronary syndrome) 01/03/2020 02/11/2020 BCC (basal cell carcinoma), arm 05/25/2016 03/21/2017 Overview: Hyperlipemia 10/20/2013 10/23/2015 Meningioma 10/20/2013 02/22/2015 Abnormal mammogram, unspecified 08/19/2013 02/22/2015 Occipital neuralgia 02/25/2013 02/23/20 15 Diverticulosis 08/16/2012 02/22/2015 Eustachian tube dysfunction 08/30/2009 02/22/2015 Urgency of urination 08/19/2009 015 Postmenopausal atrophic vaginitis 08/19/2009 02/22/2015 Labyrinthine dysfunction, 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 Continues to follow with Neurology with periodic MRI evaluations. DIABETES TYPE II W NEURO MANIFESTATIONS 12/24/2008 08/25/2014 Dermatophytosis of nail 12/24/200802/04 Leiomyoma of uterus, unspecified 11/04/2007 03/21/2017 Mucous polyp of cervix 11/04/200702/22 Abdominal pain, unspecified site 08/06/2007 12/26/2008 Unspecified cardiovascular disease 03/21/2017 Overview: Dr.Ken Reyes, Last Stress 02/04/08, negative Type II or unspecified type diabetes mellitus without mention of complication, uncontrolled 12/26/2008 documented as of this encounter (statuses as of 10/02/2023) [facility] History of Past illness Narrative* Problem Noted Date Diagnosed Date Resolved Date ACS (acute coronary syndrome) 01/03/2020 02/11/2020 BCC (basal cell carcinoma), arm 05/25/2016 03/21/2017 Overview: Hyperlipemia 10/20/2013 10/23/2015 Meningioma 10/20/2013 02/22/2015 Abnormal mammogram, unspecified 08/19/2013 02/22/2015 Occipital neuralgia 02/25/2013 02/23/20 15 Diverticulosis 08/16/2012 02/22/2015 Eustachian tube dysfunction 08/30/2009 02/22/2015 Urgency of urination 08/19/2009 015 Postmenopausal atrophic vaginitis 08/19/2009 02/22/2015 Labyrinthine dysfunction, unspecified 12/26/2008 02/22/2015 Overview: 10/13 -Seeing ENT, Vestibular Retraining via PT Benign neoplasm of cerebral meninges 12/26/2008 02/11/2020 Overview: Neuro Referral: Daija Kaden, 10/19/08, Dx: A incidental ventromedial foramen magnum meningioma, 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 Continues to follow with Neurology with periodic MRI evaluations. DIABETES TYPE II W NEURO MANIFESTATIONS 12/24/2008 08/25/2014 Dermatophytosis of nail 12/24/200802/04 Leiomyoma of uterus, unspecified 11/04/2007 03/21/2017 Mucous polyp of cervix 11/04/200702/22 Abdominal pain, unspecified site 08/06/2007 12/26/2008 Unspecified cardiovascular disease 03/21/2017 Overview: Dr.Ken Reyes, Last Stress 02/04/08, negative Type II or unspecified type diabetes mellitus without mention of complication, uncontrolled 12/26/2008 documented as of this encounter (statuses as of 10/05/2023) [facility] History of Past illness Narrative* Problem Noted Date Diagnosed Date Resolved Date ACS (acute coronary syndrome) 01/03/2020 02/11/2020 BCC (basal cell carcinoma), arm 05/25/2016 03/21/2017 Overview: Hyperlipemia 10/20/2013 10/23/2015 Meningioma 10/20/2013 02/22/2015 Abnormal mammogram, unspecified 08/19/2013 02/22/2015 Occipital neuralgia 02/25/2013 02/23/20 15 Diverticulosis 08/16/2012 02/22/2015 Eustachian tube dysfunction 08/30/2009 02/22/2015 Urgency of urination 08/19/2009 015 Postmenopausal atrophic vaginitis 08/19/2009 02/22/2015 Labyrinthine dysfunction, 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 Continues to follow with Neurology with periodic MRI evaluations. DIABETES TYPE II W NEURO MANIFESTATIONS 12/24/2008 08/25/2014 Dermatophytosis of nail 12/24/200802/04 Leiomyoma of uterus, unspecified 11/04/2007 03/21/2017 Mucous polyp of cervix 11/04/200702/22 Abdominal pain, unspecified site 08/06/2007 12/26/2008 Unspecified cardiovascular disease 03/21/2017 Overview: Dr.Ken Reyes, Last Stress 02/04/08, negative Type II or unspecified type diabetes mellitus without mention of complication, uncontrolled 12/26/2008 documented as of this encounter (statuses as of 12/07/2023) [facility] History of Past illness Narrative* Problem Noted Date Diagnosed Date Resolved Date ACS (acute coronary syndrome) 01/03/2020 02/11/2020 BCC (basal cell carcinoma), arm 05/25/2016 03/21/2017 Overview: Hyperlipemia 10/20/2013 10/23/2015 Meningioma 10/20/2013 02/22/2015 Abnormal mammogram, unspecified 08/19/2013 02/22/2015 Occipital neuralgia 02/25/2013 02/23/20 15 Diverticulosis 08/16/2012 02/22/2015 Eustachian tube dysfunction 08/30/2009 02/22/2015 Urgency of urination 08/19/2009 015 Postmenopausal atrophic vaginitis 08/19/2009 02/22/2015 Labyrinthine dysfunction, 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 Continues to follow with Neurology with periodic MRI evaluations. DIABETES TYPE II W NEURO MANIFESTATIONS 12/24/2008 08/25/2014 Dermatophytosis of nail 12/24/200802/04 Leiomyoma of uterus, unspecified 11/04/2007 03/21/2017 Mucous polyp of cervix 11/04/200702/22 Abdominal pain, unspecified site 08/06/2007 12/26/2008 Unspecified cardiovascular disease 03/21/2017 Overview: Dr.Ken Reyes, Last Stress 02/04/08, negative Type II or unspecified type diabetes mellitus without mention of complication, uncontrolled 12/26/2008 documented as of this encounter (statuses as of 12/12/2023) [facility] History of Past illness Narrative* Problem Noted Date Diagnosed Date Resolved Date ACS (acute coronary syndrome) 01/03/2020 02/11/2020 BCC (basal cell carcinoma), arm 05/25/2016 03/21/2017 Overview: Hyperlipemia 10/20/2013 10/23/2015 Meningioma 10/20/2013 02/22/2015 Abnormal mammogram, unspecified 08/19/2013 02/22/2015 Occipital neuralgia 02/25/2013 02/23/20 15 Diverticulosis 08/16/2012 02/22/2015 Eustachian tube dysfunction 08/30/2009 02/22/2015 Urgency of urination 08/19/2009 015 Postmenopausal atrophic vaginitis 08/19/2009 02/22/2015 Labyrinthine dysfunction, 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 Continues to follow with Neurology with periodic MRI evaluations. DIABETES TYPE II W NEURO MANIFESTATIONS 12/24/2008 08/25/2014 Dermatophytosis of nail 12/24/200802/04 Leiomyoma of uterus, unspecified 11/04/2007 03/21/2017 Mucous polyp of cervix 11/04/200702/22 Abdominal pain, unspecified site 08/06/2007 12/26/2008 Unspecified cardiovascular disease 03/21/2017 Overview: Dr.Ken Reyes, Last Stress 02/04/08, negative Type II or unspecified type diabetes mellitus without mention of complication, uncontrolled 12/26/2008 documented as of this encounter (statuses as of 12/26/2023) [facility] of Past illness Narrative* Problem Noted Date Diagnosed Date Resolved Date ACS (acute coronary syndrome) 01/03/2020 02/11/2020 BCC (basal cell carcinoma), arm 05/25/2016 03/21/2017 Overview: Hyperlipemia 10/20/2013 10/23/2015 Meningioma 10/20/2013 02/22/2015 Abnormal mammogram, unspecified 08/19/2013 02/22/2015 Occipital neuralgia 02/25/2013 02/23/20 15 Diverticulosis 08/16/2012 02/22/2015 Eustachian tube dysfunction 08/30/2009 02/22/2015 Urgency of urination 08/19/2009 015 Postmenopausal atrophic vaginitis 08/19/2009 02/22/2015 Labyrinthine dysfunction, 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 Continues to follow with Neurology with periodic MRI evaluations. DIABETES TYPE II W NEURO MANIFESTATIONS 12/24/2008 08/25/2014 Dermatophytosis of nail 12/24/2008/ Leiomyoma of uterus, unspecified 11/04/2007 03/21/2017 Mucous polyp of cervix 11/04/200702/22 Abdominal pain, unspecified site 08/06/2007 12/26/2008 Unspecified cardiovascular disease 03/21/2017 Overview: Dr.Ken Reyes, Last Stress 02/04/08, negative Type II or unspecified type diabetes mellitus without mention of complication, uncontrolled 12/26/2008 documented as of this encounter (statuses as of 01/14/2024) [facility] of Past illness Narrative* Problem Noted Date Diagnosed Date Resolved Date ACS (acute coronary syndrome) 01/03/2020 02/11/2020 BCC (basal cell carcinoma), arm 05/25/2016 03/21/2017 Overview: Hyperlipemia 10/20/2013 10/23/2015 Meningioma 10/20/2013 02/22/2015 Abnormal mammogram, unspecified 08/19/2013 02/22/2015 Occipital neuralgia 02/25/2013 02/23/20 15 Diverticulosis 08/16/2012 02/22/2015 Eustachian tube dysfunction 08/30/2009 02/22/2015 Urgency of urination 08/19/2009 015 Postmenopausal atrophic vaginitis 08/19/2009 02/22/2015 Labyrinthine dysfunction, 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 Continues to follow with Neurology with periodic MRI evaluations. DIABETES TYPE II W NEURO MANIFESTATIONS 12/24/2008 08/25/2014 Dermatophytosis of nail 12/24/2008/ Leiomyoma of uterus, unspecified 11/04/2007 03/21/2017 Mucous polyp of cervix 11/04/200702/22 Abdominal pain, unspecified site 08/06/2007 12/26/2008 Unspecified cardiovascular disease 03/21/2017 Overview: Dr.Ken Reyes, Last Stress 02/04/08, negative Type II or unspecified type diabetes mellitus without mention of complication, uncontrolled 12/26/2008 documented as of this encounter (statuses as of 01/14/2024) [facility] of Past illness Narrative* Problem Noted Date Diagnosed Date Resolved Date ACS (acute coronary syndrome) 01/03/2020 02/11/2020 BCC (basal cell carcinoma), arm 05/25/2016 03/21/2017 Overview: Hyperlipemia 10/20/2013 10/23/2015 Meningioma 10/20/2013 02/22/2015 Abnormal mammogram, unspecified 08/19/2013 02/22/2015 Occipital neuralgia 02/25/2013 02/23/20 15 Diverticulosis 08/16/2012 02/22/2015 Eustachian tube dysfunction 08/30/2009 02/22/2015 Urgency of urination 08/19/2009 015 Postmenopausal atrophic vaginitis 08/19/2009 02/22/2015 Labyrinthine dysfunction, 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 Continues to follow with Neurology with periodic MRI evaluations. DIABETES TYPE II W NEURO MANIFESTATIONS 12/24/2008 08/25/2014 Dermatophytosis of nail 12/24/200802/04 Leiomyoma of uterus, unspecified 11/04/2007 03/21/2017 Mucous polyp of cervix 11/04/200702/22 Abdominal pain, unspecified site 08/06/2007 12/26/2008 Unspecified cardiovascular disease 03/21/2017 Overview: Dr.Ken Reyes, Last Stress 02/04/08, negative Type II or unspecified type diabetes mellitus without mention of complication, uncontrolled 12/26/2008 documented as of this encounter (statuses as of 01/18/2024) [facility] of Past illness Narrative* Problem Noted Date Diagnosed Date Resolved Date ACS (acute coronary syndrome) 01/03/2020 02/11/2020 BCC (basal cell carcinoma), arm 05/25/2016 03/21/2017 Overview: Hyperlipemia 10/20/2013 10/23/2015 Meningioma 10/20/2013 02/22/2015 Abnormal mammogram, unspecified 08/19/2013 02/22/2015 Occipital neuralgia 02/25/2013 02/23/20 15 Diverticulosis 08/16/2012 02/22/2015 Eustachian tube dysfunction 08/30/2009 02/22/2015 Urgency of urination 08/19/2009 015 Postmenopausal atrophic vaginitis 08/19/2009 02/22/2015 Labyrinthine dysfunction, 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 Continues to follow with Neurology with periodic MRI evaluations. DIABETES TYPE II W NEURO MANIFESTATIONS 12/24/2008 08/25/2014 Dermatophytosis of nail 12/24/200802/04 Leiomyoma of uterus, unspecified 11/04/2007 03/21/2017 Mucous polyp of cervix 11/04/200702/22 Abdominal pain, unspecified site 08/06/2007 12/26/2008 Unspecified cardiovascular disease 03/21/2017 Overview: Dr.Ken Reyes, Last Stress 02/04/08, negative Type II or unspecified type diabetes mellitus without mention of complication, uncontrolled 12/26/2008 documented as of this encounter (statuses as of 01/18/2024) [facility]* Chief Complaint HEMATURIA, ABN URETE R BLEEDING [place] referral possible [place] PMB ABN US RENAL Reason for Visit Thickened endometriu m [facility] Work Phone: Chief complaint+Reason for visit Narrative* Chief Complaint HEMATURIA, ABN URETE R BLEEDING [place] referral possible [place] PMB ABN US RENAL ARM INJURY Reason for Visit Thickened endometriu m [facility] Work Phone: Evaluation note* Diagnosis Urinary frequency- Primary Acute lower UTI Urinary tract infection, site not specified [facility] encounter [facility] noteNo assessment information availableWOhio[facility] Work Phone: Evaluation note* Diagnosis Onset Date Resolution Status Thickened endometrium acute [facility] Work Phone: Evaluation note* Diagnosis Closed fracture of left shoulder with routine healing, subsequent encounter- Primary Mixed hyperlipidemia Obesity, Class I, BMI 30-34.9 Obesity, unspecified Type 2 diabetes mellitus with stage 3b chronic kidney disease, with long-term current use of insulin ([facility]) [facility]* Diagnosis Type 2 diabetes mellitus with stage 3b chronic kidney disease, with long-term current use of insulin ([facility])- Primary History of CVA (cerebrovascular accident) Transient ischemic attack (TIA), and cerebral infarction without residual deficits Closed fracture of left shoulder with routine healing, subsequent encounter [facility]* Diagnosis Type 2 diabetes mellitus with stage 3b chronic kidney disease, with long-term current use of insulin ([facility])- Primary Stage 3b chronic kidney disease (HCC) Vitamin D deficiency Unspecified vitamin D deficiency Mixed hyperlipidemia Hypertension goal BP (blood pressure) < 150/90 Unspecified essential hypertension Bilateral leg edema Edema Swelling of left hand Positive for macroalbuminuria Proteinuria documented in this [facility] Onset Date Resolution Status Closed fracture of left proximal humerus acute [facility] Work Phone: Evaluation note* Diagnosis Idiopathic gout of multiple sites, unspecified chronicity- Primary S/P CABG x 4 Postsurgical aortocoronary bypass status [facility] Diagnosis Mixed [facility] Diagnosis Idiopathic gout of multiple sites, unspecified chronicity Hyperuricemia Other abnormal blood chemistry [facility] Diagnosis 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 ([facility]) Occlusion and stenosis of unspecified precerebral artery with cerebral infarction [facility] Diagnosis URI, acute- Primary Acute upper respiratory infections of unspecified site [facility] Diagnosis Encounter for immunization- Primary Need for other specified prophylactic vaccination against single bacterial disease [facility]* Diagnosis Hypertension goal BP (blood pressure) < 150/90- Primary Unspecified essential hypertension Type 2 diabetes mellitus with stage 3b chronic kidney disease, with long-term current use of insulin (HCC) Hypertensive kidney disease with stage 3b chronic kidney disease (HCC) [facility]* Diagnosis Type 2 diabetes mellitus with stage 3b chronic kidney disease, with long-term current use of insulin (HCC) Hypertensive kidney disease with stage 3b chronic kidney disease (HCC) Hypertension goal BP (blood pressure) < 150/90 Unspecified essential hypertension [facility]* Diagnosis Type 2 diabetes mellitus with stage 3b chronic kidney disease, with long-term current use of insulin (HCC)- Primary Hypertension goal BP (blood pressure) < 150/90 Unspecified essential hypertension Vitamin D deficiency Unspecified vitamin D deficiency Macroalbuminuric diabetic nephropathy (HCC) Type II or unspecified type diabetes mellitus with renal manifestations, not stated as uncontrolled Hyperuricemia Other abnormal blood chemistry Encounter for immunization Need for other specified prophylactic vaccination against single bacterial disease Congestive heart failure, unspecified HF chronicity, unspecified heart failure type (HCC) Stage 3b chronic kidney disease (HCC) Paroxysmal atrial fibrillation with rapid ventricular response (HCC) [facility]* Diagnosis Type 2 diabetes mellitus with stage 3b chronic kidney disease, with long-term current use of insulin (HCC)- Primary Chronic renal disease, stage IV (HCC) Chronic kidney disease, Stage IV (severe) Hypertension goal BP (blood pressure) < 150/90 Unspecified essential hypertension Macroalbuminuric diabetic nephropathy (HCC) Type II or unspecified type diabetes mellitus with renal manifestations, not stated as uncontrolled Congestive heart failure, unspecified HF chronicity, unspecified heart failure type (HCC) [facility]* Diagnosis Mixed hyperlipidemia [facility]* Diagnosis Congestive heart failure, unspecified HF chronicity, unspecified heart failure type (HCC)- Primary [facility]* Diagnosis Type 2 diabetes mellitus with stage 3b chronic kidney disease, with long-term current use of insulin (HCC)- Primary Macroalbuminuric diabetic nephropathy (HCC) Type II or unspecified type diabetes mellitus with renal manifestations, not stated as uncontrolled Vitamin D deficiency Unspecified vitamin D deficiency Congestive heart failure, unspecified HF chronicity, unspecified heart failure type (HCC) Postmenopausal bleeding Mixed hyperlipidemia Hyperuricemia Other abnormal blood chemistry Bilateral leg edema Edema Hypertension goal BP (blood pressure) < 150/90 Unspecified essential hypertension Chronic renal disease, stage IV (HCC) Chronic kidney disease, Stage IV (severe) Paroxysmal atrial fibrillation (HCC) Atrial fibrillation Encounter for long-term current use of medication [facility]* Diagnosis Type 2 diabetes mellitus with hyperglycemia, with long-term current use of insulin (HCC)- Primary [facility]* Diagnosis Screening for diabetic retinopathy- Primary Screening for other eye conditions PMB (postmenopausal bleeding) Postmenopausal bleeding Idiopathic gout of multiple sites, unspecified chronicity Hyperuricemia Other abnormal blood chemistry 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) Occlusion and stenosis of unspecified precerebral artery with cerebral infarction Hypertension goal BP (blood pressure) < 150/90 Unspecified essential hypertension Type 2 diabetes mellitus with stage 3b chronic kidney disease, with long-term current use of insulin (HCC) Pure hypercholesterolemia History of CVA (cerebrovascular accident) Transient ischemic attack (TIA), and cerebral infarction without residual deficits S/P CABG x 4 Postsurgical aortocoronary bypass status Stage 3b chronic kidney disease (HCC) Excessive cerumen in both ear canals [facility]* Diagnosis HYPERTENSION NOS- Primary Unspecified essential hypertension Idiopathic gout of multiple sites, unspecified chronicity Uncontrolled type 2 diabetes mellitus with complication, without long-term current use of insulin CKD (chronic kidney disease), stage 3 (moderate) Pure hypercholesterolemia 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) Occlusion and stenosis of unspecified precerebral artery with cerebral infarction Hypertension goal BP (blood pressure) < 150/90 Unspecified essential hypertension Hyperlipidemia, unspecified hyperlipidemia type Uncontrolled type 2 diabetes mellitus with hyperosmolarity without coma, without long-term current use of insulin (HCC)- Primary CKD (chronic kidney disease), stage 3 (moderate) Hypertension goal BP (blood pressure) < 150/90 Unspecified essential hypertension Type 2 diabetes mellitus with stage 3b chronic kidney disease, with long-term current use of insulin (HCC)- Primary Hypertensive kidney disease with stage 3b chronic kidney disease (HCC) Hypertensive heart and chronic kidney disease with heart failure and stage 1 through stage 4 chronic kidney disease, or unspecified chronic kidney disease (HCC) Hypertension goal BP (blood pressure) < 150/90 Unspecified essential hypertension Congestive heart failure, unspecified HF chronicity, unspecified heart failure type (HCC) Encounter for immunization Need for other specified prophylactic vaccination against single bacterial disease [facility]* Diagnosis HYPERTENSION NOS- Primary Unspecified essential hypertension Idiopathic gout of multiple sites, unspecified chronicity Uncontrolled type 2 diabetes mellitus with complication, without long-term current use of insulin CKD (chronic kidney disease), stage 3 (moderate) Pure hypercholesterolemia 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) Occlusion and stenosis of unspecified precerebral artery with cerebral infarction Hypertension goal BP (blood pressure) < 150/90 Unspecified essential hypertension Hyperlipidemia, unspecified hyperlipidemia type Uncontrolled type 2 diabetes mellitus with hyperosmolarity without coma, without long-term current use of insulin (HCC)- Primary CKD (chronic kidney disease), stage 3 (moderate) Hypertension goal BP (blood pressure) < 150/90 Unspecified essential hypertension Heart failure with reduced ejection fraction (HCC)- Primary Heart failure, unspecified Hypertension goal BP (blood pressure) < 150/90 Unspecified essential hypertension S/P CABG x 4 Postsurgical aortocoronary bypass status Paroxysmal atrial fibrillation with rapid ventricular response ([facility]) [facility]* Diagnosis HYPERTENSION NOS- Primary Unspecified essential hypertension Idiopathic gout of multiple sites, unspecified chronicity Uncontrolled type 2 diabetes mellitus with complication, without long-term current use of insulin CKD (chronic kidney disease), stage 3 (moderate) Pure hypercholesterolemia 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) Occlusion and stenosis of unspecified precerebral artery with cerebral infarction Hypertension goal BP (blood pressure) < 150/90 Unspecified essential hypertension Hyperlipidemia, unspecified hyperlipidemia type Uncontrolled type 2 diabetes mellitus with hyperosmolarity without coma, without long-term current use of insulin (HCC)- Primary CKD (chronic kidney disease), stage 3 (moderate) Hypertension goal BP (blood pressure) < 150/90 Unspecified essential hypertension Type 2 diabetes mellitus with stage 3b chronic kidney disease, with long-term current use of insulin (HCC)- Primary Hyperuricemia Other abnormal blood chemistry Vitamin D deficiency Unspecified vitamin D deficiency Macroalbuminuric diabetic nephropathy (HCC) Type II or unspecified type diabetes mellitus with renal manifestations, not stated as uncontrolled Pure hypercholesterolemia Hypertension goal BP (blood pressure) < 150/90 Unspecified essential hypertension Idiopathic gout of multiple sites, unspecified chronicity 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) Occlusion and stenosis of unspecified precerebral artery with cerebral infarction Mixed hyperlipidemia Mild anemia Anemia, unspecified documented in this encounter [facility] note* Diagnosis HYPERTENSION NOS- Primary Unspecified essential hypertension Idiopathic gout of multiple sites, unspecified chronicity Uncontrolled type 2 diabetes mellitus with complication, without long-term current use of insulin CKD (chronic kidney disease), stage 3 (moderate) Pure hypercholesterolemia 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) Occlusion and stenosis of unspecified precerebral artery with cerebral infarction Hypertension goal BP (blood pressure) < 150/90 Unspecified essential hypertension Hyperlipidemia, unspecified hyperlipidemia type Uncontrolled type 2 diabetes mellitus with hyperosmolarity without coma, without long-term current use of insulin (HCC)- Primary CKD (chronic kidney disease), stage 3 (moderate) Hypertension goal BP (blood pressure) < 150/90 Unspecified essential hypertension wheezing- Primary Exposure to influenza Contact with or exposure to other viral diseases Viral illness Unspecified viral infection, in conditions classified elsewhere and of unspecified site Edema, unspecified type documented in this encounter [facility] note* Diagnosis HYPERTENSION NOS- Primary Unspecified essential hypertension Idiopathic gout of multiple sites, unspecified chronicity Uncontrolled type 2 diabetes mellitus with complication, without long-term current use of insulin CKD (chronic kidney disease), stage 3 (moderate) Pure hypercholesterolemia 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) Occlusion and stenosis of unspecified precerebral artery with cerebral infarction Hypertension goal BP (blood pressure) < 150/90 Unspecified essential hypertension Hyperlipidemia, unspecified hyperlipidemia type Uncontrolled type 2 diabetes mellitus with hyperosmolarity without coma, without long-term current use of insulin (HCC)- Primary CKD (chronic kidney disease), stage 3 (moderate) Hypertension goal BP (blood pressure) < 150/90 Unspecified essential hypertension Pleural effusion- Primary Unspecified pleural effusion Chronic heart failure with preserved ejection fraction (HCC) Type 2 diabetes mellitus with stage 3b chronic kidney disease, with long-term current use of insulin (HCC) Hyperlipidemia, unspecified hyperlipidemia type documented in this encounter [facility] note* Diagnosis HYPERTENSION NOS- Primary Unspecified essential hypertension Idiopathic gout of multiple sites, unspecified chronicity Uncontrolled type 2 diabetes mellitus with complication, without long-term current use of insulin CKD (chronic kidney disease), stage 3 (moderate) Pure hypercholesterolemia 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) Occlusion and stenosis of unspecified precerebral artery with cerebral infarction Hypertension goal BP (blood pressure) < 150/90 Unspecified essential hypertension Hyperlipidemia, unspecified hyperlipidemia type Uncontrolled type 2 diabetes mellitus with hyperosmolarity without coma, without long-term current use of insulin (HCC)- Primary CKD (chronic kidney disease), stage 3 (moderate) Hypertension goal BP (blood pressure) < 150/90 Unspecified essential hypertension Type 2 diabetes mellitus with stage 3b chronic kidney disease, with long-term current use of insulin (HCC) Hypertensive kidney disease with stage 3b chronic kidney disease (HCC) Hypertension goal BP (blood pressure) < 150/90 Unspecified essential hypertension documented in this encounter [facility] note* Diagnosis HYPERTENSION NOS- Primary Unspecified essential hypertension Idiopathic gout of multiple sites, unspecified chronicity Uncontrolled type 2 diabetes mellitus with complication, without long-term current use of insulin CKD (chronic kidney disease), stage 3 (moderate) Pure hypercholesterolemia 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) Occlusion and stenosis of unspecified precerebral artery with cerebral infarction Hypertension goal BP (blood pressure) < 150/90 Unspecified essential hypertension Hyperlipidemia, unspecified hyperlipidemia type Uncontrolled type 2 diabetes mellitus with hyperosmolarity without coma, without long-term current use of insulin (HCC)- Primary CKD (chronic kidney disease), stage 3 (moderate) Hypertension goal BP (blood pressure) < 150/90 Unspecified essential hypertension Hypertension goal BP (blood pressure) < 150/90 Unspecified essential hypertension documented in this encounter [facility] note* Diagnosis Onset Date Resolution Status Admit Date Atherosclerosis of coronary artery of [place] heart without angina pectoris chronic April 30, 2025 3:19pm Benign hypertension chronic April 30, 2025 3:19pm HLD (hyperlipidemia) chronic April 30, 2025 3:19pm Ischemic cardiomyopathy chronic J 2024 3:19pm Paroxysmal atrial fibrillati on with RVR chronic April 30, 2025 3:19pm [facility] Work Phone: Evaluation note* Diagnosis HYPERTENSION NOS- Primary Unspecified essential hypertension Idiopathic gout of multiple sites, unspecified chronicity Uncontrolled type 2 diabetes mellitus with complication, without long-term current use of insulin CKD (chronic kidney disease), stage 3 (moderate) Pure hypercholesterolemia 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) Occlusion and stenosis of unspecified precerebral artery with cerebral infarction Hypertension goal BP (blood pressure) < 150/90 Unspecified essential hypertension Hyperlipidemia, unspecified hyperlipidemia type Uncontrolled type 2 diabetes mellitus with hyperosmolarity without coma, without long-term current use of insulin (HCC)- Primary CKD (chronic kidney disease), stage 3 (moderate) Hypertension goal BP (blood pressure) < 150/90 Unspecified essential hypertension Type 2 diabetes mellitus with stage 3b chronic kidney disease, with long-term current use of insulin ([facility]) [facility]* Diagnosis HYPERTENSION NOS- Primary Unspecified essential hypertension Idiopathic gout of multiple sites, unspecified chronicity Uncontrolled type 2 diabetes mellitus with complication, without long-term current use of insulin CKD (chronic kidney disease), stage 3 (moderate) Pure hypercholesterolemia 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) Occlusion and stenosis of unspecified precerebral artery with cerebral infarction Hypertension goal BP (blood pressure) < 150/90 Unspecified essential hypertension Hyperlipidemia, unspecified hyperlipidemia type Uncontrolled type 2 diabetes mellitus with hyperosmolarity without coma, without long-term current use of insulin (HCC)- Primary CKD (chronic kidney disease), stage 3 (moderate) Hypertension goal BP (blood pressure) < 150/90 Unspecified essential hypertension Medicare annual wellness visit, subsequent- Primary Routine general medical examination at a [facility] facility Hypertensive kidney disease with stage 3b chronic kidney disease (HCC) Screening for depression Encounter for screening examination for other mental health and behavioral disorders Mild anemia Anemia, unspecified Type 2 diabetes mellitus with stage 3b chronic kidney disease, with long-term current use of insulin (HCC) Chronic renal disease, stage IV (HCC) Chronic kidney disease, Stage IV (severe) documented in this encounter [facility] note* Diagnosis HYPERTENSION NOS- Primary Unspecified essential hypertension Idiopathic gout of multiple sites, unspecified chronicity Uncontrolled type 2 diabetes mellitus with complication, without long-term current use of insulin CKD (chronic kidney disease), stage 3 (moderate) Pure hypercholesterolemia 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) Occlusion and stenosis of unspecified precerebral artery with cerebral infarction Hypertension goal BP (blood pressure) < 150/90 Unspecified essential hypertension Hyperlipidemia, unspecified hyperlipidemia type Uncontrolled type 2 diabetes mellitus with hyperosmolarity without coma, without long-term current use of insulin (HCC)- Primary CKD (chronic kidney disease), stage 3 (moderate) Hypertension goal BP (blood pressure) < 150/90 Unspecified essential hypertension Pelvic pain- Primary Hematuria, unspecified type [facility]ative)No reason for referral [facility] [place] [facility] Work Phone: Summary Purpose Family History No Family History Records Found Relationship Condition Age at Onset Recorded Date/T berna Unknown Family History?Cancer Unknown January 17, 2020 3:07pm Family History?Diabe andreia, Heart Disease Unknown January 17, 2020 3:07pm Family History?Heart Disease Unknown April 30, 2014 12:05pm Relationship Condition Age at Onset Recorded Date/T berna aunt Malignant neoplasm of breast Unknown mother Cardiac disease Unknown father Cardiac disease Unknown Advance Directives No Advanced Directives Records FoundDocuments on File Type Date Recorded Patient Church Secretary Expl anation Advance Directive(s) 01/20/2020 10:12 AM Advance Directive(s) 01/06/2020 11:19 AM Advance Directive(s) 01/05/2020 10:03 AM Documents on File Type Date Recorded Patient Church Secretary Expl anation Advance Directive(s) 01/20/2020 10:12 AM Advance Directive Response Recorded Date/ Time Advance Directives Yes May 12 1:59pm Living Will Yes March 16, 2020 1 1:00am Power of [employer]oring [employer] Operator Yes March 16, 2020 11:00am Advance Directive Response Recorded Date/ Time Name of Medical Power of Vertical Boring [employer] Operator ARISTEO SAUNDERS October 03, 2022 2:14pm Advance Directives Yes May 12 12:59pm Living Will Yes October 03, 2 022 2:14pm Power of [employer]oring [employer] Operator Yes October 03, 2022 2:14pm Advance Directive Response Recorded Date/ Time Name of Medical Power of Vertical [employer]oring [employer] Operator ARISTEO SAUNDERS October 03, 2022 3:14pm Advance Directives Yes May 12 1:59pm Living Will Yes October 03, 2 022 3:14pm Power of Vertical Boring [employer] Operator Yes October 03, 2022 3:14pm Documents on File Type Date Recorded 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 Yes January 05, 2025 12:28pm Name of Medical Power of Vertical Boring Mill Operator Aristeo Saunders January 05, 2025 12:28pm Advance Directives Yes May 12 1:59pm Hospital Course Note HNO ID: [id number] Author: Livan Ortiz Service: Cardiac Surgery Author Type: Physician Type: Discharge Summary Filed: 01/19/2020 9:04 AM Note Text: DISCHARGE SUMMARY PATIENT NAME: Concha Woodward Code Status: Not on file Highest Readmission Risk Score: 30 The 30 day readmissions risk score is derived from an internally validated risk model which evaluates patient level characteristics, utilization history, medication orders and lab results up until the day of discharge. Patients with a score of 40 or above are considered highest risk for readmission. Specific patient level drivers will be listed at the bottom of the summary. Admission Information Admission Information ADMIT DATE: 01/03/2020 DISCHARGE DATE: 01/17/2020 MY DOCTORS AND MEDICAL TEAM: [facility] Doctor: Eric Ortiz Primary Care Provider: Anju Pearce MD My Medical Team Members: Treatment Team: Attending Provider: Eric Ortiz Consulting: Ann Echeverria Consulting: Cesar Greenfield (more content not included)... Note HNO ID: [id number] Author: Ever Roberts CNP Service: Cardiac Surgery Author Type: Nurse Practitioner Type: Procedures Filed: 01/14/2020 9:39 AM Note Text: BEDSIDE PROCEDURE NOTE Epicardardial Paing wire removal Procedure Date/Start Time: 01/14/2020 9:30 AM Performed by: Philip Roberts CNP Authorized by: Philip Roberts CNP The risks, benefits and alternatives of the procedure were reviewed with the patient/patient employee relations representative. The patient/patient employee relations representative agreed to proceed. Informed Consent Written Consent Obtained: N/A [place] Protocol Pre-procedure Details: Personnel directly involved with the procedure wore the appropriate PPE. The area was prepped with alcohol and chlorhexidine (Chloroprep) and allowed to dry. Medications: Procedure Details: PLT 206k. Wire sites prepped with cholprep and allowed to dry, re-prepped with ETOH. V wires CUT and A wires PULLED without resistance. VS post removal HR 70, BP 140/84 Post-procedure Details: Patient tolerated the proced (more content not included)... Procedure Findings Note HNO ID: [id number] Author: Ever Harkins) DAYANA Roberts Service: Cardiac Surgery Author Type: Nurse Practitioner Type: Procedures Filed: 01/14/2020 9:39 AM Note Text: BEDSIDE PROCEDURE NOTE Epicardardial Paing wire removal Procedure Date/Start Time: 01/14/2020 9:30 AM Performed by: Philip Roberts CNP Authorized by: Philip Roberts CNP The risks, benefits and alternatives of the procedure were reviewed with the patient/patient employee relations representative. The patient/patient employee relations representative agreed to proceed. Informed Consent Written Consent Obtained: N/A [place] Protocol Pre-procedure Details: Personnel directly involved with the procedure wore the appropriate PPE. The area was prepped with alcohol and chlorhexidine (Chloroprep) and allowed to dry. Medications: Procedure Details: PLT 206k. Wire sites prepped with cholprep and allowed to dry, re-prepped with ETOH. V wires CUT and A wires PULLED without resistance. VS post removal HR 70, BP 140/84 Post-procedure Details: Patient tolerated the proced (more content not included)... Chief Complaint and Reason for Visit Chief Complaint HEMATURIA, ABN URETE R BLEEDING Chief Complaint ARM INJURY LEFT SHOULDER L PROXIMAL HUMERUS FRACTURE. RX HERE Reason for Visit Closed fracture of l eft proximal humerus Chief Complaint Admit Date GENERAL ILLNESS January 05, 2025 11:0 9am 6 M FU April 30, 2025 3:19 pm Reason for Visit Admit Date Atherosclerosis of coronary artery of [place] heart without angina pectoris April 30, 2025 3:19pm Benign hypertension April 30, 2025 3:19 pm HLD (hyperlipidemia) April 30, 2025 3:1 9pm Ischemic cardiomyopathy April 30, 2025 3:19pm Paroxysmal atrial fibrillation with RVR April 30, 2025 3:19pm Health Concerns Infection Onset Date Last Indicated Resolved Time COVID-19 Rule-Out 07/21/2023 07/21/2023 Infection Onset Date Last Indicated Resolved Time COVID-19 Rule-Out 07/21/2023 07/21/2023 07/21/2023 10:49 PM EDT COVID-19 Confirmed 07/21/2023 07/21/2023 Reason for Referral Specialty Diagnoses / Procedures Referred By Contac t Referred To Contact Ent - Otolaryngology Diagnoses Excessive cerumen in both ear canals Procedures CONSULT TO ENT OFFICE/OUTPATIENT [facility] 60 MINUTES Ishmael Davis, CIVIL CAD TECH.[employer]ICK [employer] [address] [place] [address] Referral ID Status Reason Start Date Expiration Date Visits Requested Visits Authorized [id number] Authorized PCP Requested Referral 05/12/2024 05/12/2025 1 1 Specialty Diagnoses / Procedures Referred By Albaac t Referred To Contact Cardiology Diagnoses Heart failure with reduced ejection fraction (HCC) Hypertension goal BP (blood pressure) < 150/90 S/P CABG x 4 Paroxysmal atrial fibrillation with rapid ventricular response (HCC) Procedures CONSULT TO CARDIOLOGY OFFICE/OUTPATIENT [facility] 60 MINUTES Ishmael Davis, CIVIL CAD TECH.BRICK CLE[employer]ER [address] [place] [address] Referral ID Status Reason Start Date Expiration Date Visits Requested Visits Authorized [id number] Authorized PCP Requested Referral 4 09/18/2025 1 1 Specialty Diagnoses / Procedures Referred By Albaac t [facility] Diagnoses Heart failure with reduced ejection fraction (HCC) Hypertension goal BP (blood pressure) < 150/90 S/P CABG x 4 Paroxysmal atrial fibrillation with rapid ventricular response (HCC) Procedures ECHO ECHO TTHRC R-T 2D W/WOM-MODE COMPL SPEC&COLR D Ishmael Davis, CIVIL CAD TECH.[employer]ICK [employer] [address] [place] [address] [facility] [place] [address] [place] [address] Referral ID Status Reason Start Date Expiration Date Visits Requested Visits Authorized [id number] New Request Auto-Generat ed Referral 4 09/18/2025 1 1 Additional Source Comments INFORMATION SOURCE (unrecogn ized section and content) DATE CREATED AUTHOR 03/20/2020 [facility] DATE CREATED AUTHOR AUTHOR'S ORGANIZ ATION 05/23/2020 [facility] DATE CREATED AUTHOR AUTHOR'S ORGANIZ ATION 05/01/2025 [facility] DATE CREATED AUTHOR AUTHOR'S ORGANIZ ATION 06/03/2025 [facility] Source Comments (unrecognize d section and content) In the event this informatio n is protected by the Federal Confidentiality of Alcohol and Drug Abuse Patient Records regulations: The Federal rules restrict any use of the information to criminally investigate or prosecute any alcohol or drug abuse patient.[facility] the event this information is protected by the Federal Confidentiality of Alcohol and Drug Abuse Patient Records regulations: The Federal rules restrict any use of the information to criminally investigate or prosecute any alcohol or drug abuse patient.[facility] HospitalIn the event this information is protected by the Federal Confidentiality of Alcohol and Drug Abuse Patient Records regulations: The Federal rules restrict any use of the information to criminally investigate or prosecute any alcohol or drug abuse patient.[facility] HospitalIn the event this information is protected by the Federal Confidentiality of Alcohol and Drug Abuse Patient Records regulations: The Federal rules restrict any use of the information to criminally investigate or prosecute any alcohol or drug abuse patient.[facility] HospitalIn the event this information is protected by the Federal Confidentiality of Alcohol and Drug Abuse Patient Records regulations: The Federal rules restrict any use of the information to criminally investigate or prosecute any alcohol or drug abuse patient.[facility] HospitalIn the event this information is protected by the Federal Confidentiality of Alcohol and Drug Abuse Patient Records regulations: The Federal rules restrict any use of the information to criminally investigate or prosecute any alcohol or drug abuse patient.[facility] HospitalIn the event this information is protected by the Federal Confidentiality of Alcohol and Drug Abuse Patient Records regulations: The Federal rules restrict any use of the information to criminally investigate or prosecute any alcohol or drug abuse patient.[facility] HospitalIn the event this information is protected by the Federal Confidentiality of Alcohol and Drug Abuse Patient Records regulations: The Federal rules restrict any use of the information to criminally investigate or prosecute any alcohol or drug abuse patient.[facility] HospitalIn the event this information is protected by the Federal Confidentiality of Alcohol and Drug Abuse Patient Records regulations: The Federal rules restrict any use of the information to criminally investigate or prosecute any alcohol or drug abuse patient.[facility] HospitalIn the event this information is protected by the Federal Confidentiality of Alcohol and Drug Abuse Patient Records regulations: The Federal rules restrict any use of the information to criminally investigate or prosecute any alcohol or drug abuse patient.[facility] HospitalIn the event this information is protected by the Federal Confidentiality of Alcohol and Drug Abuse Patient Records regulations: The Federal rules restrict any use of the information to criminally investigate or prosecute any alcohol or drug abuse patient.[facility] HospitalIn the event this information is protected by the Federal Confidentiality of Alcohol and Drug Abuse Patient Records regulations: The Federal rules restrict any use of the information to criminally investigate or prosecute any alcohol or drug abuse patient.[facility] HospitalIn the event this information is protected by the Federal Confidentiality of Alcohol and Drug Abuse Patient Records regulations: The Federal rules restrict any use of the information to criminally investigate or prosecute any alcohol or drug abuse patient.[facility] HospitalIn the event this information is protected by the Federal Confidentiality of Alcohol and Drug Abuse Patient Records regulations: The Federal rules restrict any use of the information to criminally investigate or prosecute any alcohol or drug abuse patient.[facility] HospitalIn the event this information is protected by the Federal Confidentiality of Alcohol and Drug Abuse Patient Records regulations: The Federal rules restrict any use of the information to criminally investigate or prosecute any alcohol or drug abuse patient.[facility] HospitalIn the event this information is protected by the Federal Confidentiality of Alcohol and Drug Abuse Patient Records regulations: The Federal rules restrict any use of the information to criminally investigate or prosecute any alcohol or drug abuse patient.[facility] HospitalIn the event this information is protected by the Federal Confidentiality of Alcohol and Drug Abuse Patient Records regulations: The Federal rules restrict any use of the information to criminally investigate or prosecute any alcohol or drug abuse patient.[facility] HospitalIn the event this information is protected by the Federal Confidentiality of Alcohol and Drug Abuse Patient Records regulations: The Federal rules restrict any use of the information to criminally investigate or prosecute any alcohol or drug abuse patient.[facility] HospitalIn the event this information is protected by the Federal Confidentiality of Alcohol and Drug Abuse Patient Records regulations: The Federal rules restrict any use of the information to criminally investigate or prosecute any alcohol or drug abuse patient.[facility] HospitalIn the event this information is protected by the Federal Confidentiality of Alcohol and Drug Abuse Patient Records regulations: The Federal rules restrict any use of the information to criminally investigate or prosecute any alcohol or drug abuse patient.[facility] HospitalIn the event this information is protected by the Federal Confidentiality of Alcohol and Drug Abuse Patient Records regulations: The Federal rules restrict any use of the information to criminally investigate or prosecute any alcohol or drug abuse patient.[facility] HospitalIn the event this information is protected by the Federal Confidentiality of Alcohol and Drug Abuse Patient Records regulations: The Federal rules restrict any use of the information to criminally investigate or prosecute any alcohol or drug abuse patient.[facility] HospitalIn the event this information is protected by the Federal Confidentiality of Alcohol and Drug Abuse Patient Records regulations: The Federal rules restrict any use of the information to criminally investigate or prosecute any alcohol or drug abuse patient.[facility] HospitalIn the event this information is protected by the Federal Confidentiality of Alcohol and Drug Abuse Patient Records regulations: The Federal rules restrict any use of the information to criminally investigate or prosecute any alcohol or drug abuse patient.[facility] HospitalIn the event this information is protected by the Federal Confidentiality of Alcohol and Drug Abuse Patient Records regulations: The Federal rules restrict any use of the information to criminally investigate or prosecute any alcohol or drug abuse patient.[facility] HospitalIn the event this information is protected by the Federal Confidentiality of Alcohol and Drug Abuse Patient Records regulations: The Federal rules restrict any use of the information to criminally investigate or prosecute any alcohol or drug abuse patient.[facility] HospitalIn the event this information is protected by the Federal Confidentiality of Alcohol and Drug Abuse Patient Records regulations: The Federal rules restrict any use of the information to criminally investigate or prosecute any alcohol or drug abuse patient.[facility] HospitalIn the event this information is protected by the Federal Confidentiality of Alcohol and Drug Abuse Patient Records regulations: The Federal rules restrict any use of the information to criminally investigate or prosecute any alcohol or drug abuse patient.[facility] HospitalIn the event this information is protected by the Federal Confidentiality of Alcohol and Drug Abuse Patient Records regulations: The Federal rules restrict any use of the information to criminally investigate or prosecute any alcohol or drug abuse patient.[facility] HospitalIn the event this information is protected by the Federal Confidentiality of Alcohol and Drug Abuse Patient Records regulations: The Federal rules restrict any use of the information to criminally investigate or prosecute any alcohol or drug abuse patient.[facility] HospitalIn the event this information is protected by the Federal Confidentiality of Alcohol and Drug Abuse Patient Records regulations: The Federal rules restrict any use of the information to criminally investigate or prosecute any alcohol or drug abuse patient.[facility] HospitalIn the event this information is protected by the Federal Confidentiality of Alcohol and Drug Abuse Patient Records regulations: The Federal rules restrict any use of the information to criminally investigate or prosecute any alcohol or drug abuse patient.[facility] HospitalIn the event this information is protected by the Federal Confidentiality of Alcohol and Drug Abuse Patient Records regulations: The Federal rules restrict any use of the information to criminally investigate or prosecute any alcohol or drug abuse patient.[facility] HospitalIn the event this information is protected by the Federal Confidentiality of Alcohol and Drug Abuse Patient Records regulations: The Federal rules restrict any use of the information to criminally investigate or prosecute any alcohol or drug abuse patient.[facility] HospitalIn the event this information is protected by the Federal Confidentiality of Alcohol and Drug Abuse Patient Records regulations: The Federal rules restrict any use of the information to criminally investigate or prosecute any alcohol or drug abuse patient.[facility] HospitalIn the event this information is protected by the Federal Confidentiality of Alcohol and Drug Abuse Patient Records regulations: The Federal rules restrict any use of the information to criminally investigate or prosecute any alcohol or drug abuse patient.[facility] HospitalIn the event this information is protected by the Federal Confidentiality of Alcohol and Drug Abuse Patient Records regulations: The Federal rules restrict any use of the information to criminally investigate or prosecute any alcohol or drug abuse patient.[facility] HospitalIn the event this information is protected by the Federal Confidentiality of Alcohol and Drug Abuse Patient Records regulations: The Federal rules restrict any use of the information to criminally investigate or prosecute any alcohol or drug abuse patient.[facility] HospitalIn the event this information is protected by the Federal Confidentiality of Alcohol and Drug Abuse Patient Records regulations: The Federal rules restrict any use of the information to criminally investigate or prosecute any alcohol or drug abuse patient.[facility] HospitalIn the event this information is protected by the Federal Confidentiality of Alcohol and Drug Abuse Patient Records regulations: The Federal rules restrict any use of the information to criminally investigate or prosecute any alcohol or drug abuse patient.[facility] HospitalIn the event this information is protected by the Federal Confidentiality of Alcohol and Drug Abuse Patient Records regulations: The Federal rules restrict any use of the information to criminally investigate or prosecute any alcohol or drug abuse patient.[facility] HospitalIn the event this information is protected by the Federal Confidentiality of Alcohol and Drug Abuse Patient Records regulations: The Federal rules restrict any use of the information to criminally investigate or prosecute any alcohol or drug abuse patient.[facility] HospitalIn the event this information is protected by the Federal Confidentiality of Alcohol and Drug Abuse Patient Records regulations: The Federal rules restrict any use of the information to criminally investigate or prosecute any alcohol or drug abuse patient.[facility] HospitalIn the event this information is protected by the Federal Confidentiality of Alcohol and Drug Abuse Patient Records regulations: The Federal rules restrict any use of the information to criminally investigate or prosecute any alcohol or drug abuse patient.[facility] HospitalIn the event this information is protected by the Federal Confidentiality of Alcohol and Drug Abuse Patient Records regulations: The Federal rules restrict any use of the information to criminally investigate or prosecute any alcohol or drug abuse patient.[facility] HospitalIn the event this information is protected by the Federal Confidentiality of Alcohol and Drug Abuse Patient Records regulations: The Federal rules restrict any use of the information to criminally investigate or prosecute any alcohol or drug abuse patient.[facility] HospitalIn the event this information is protected by the Federal Confidentiality of Alcohol and Drug Abuse Patient Records regulations: The Federal rules restrict any use of the information to criminally investigate or prosecute any alcohol or drug abuse patient.[facility] HospitalIn the event this information is protected by the Federal Confidentiality of Alcohol and Drug Abuse Patient Records regulations: The Federal rules restrict any use of the information to criminally investigate or prosecute any alcohol or drug abuse patient.[facility] HospitalIn the event this information is protected by the Federal Confidentiality of Alcohol and Drug Abuse Patient Records regulations: The Federal rules restrict any use of the information to criminally investigate or prosecute any alcohol or drug abuse patient.[facility] HospitalIn the event this information is protected by the Federal Confidentiality of Alcohol and Drug Abuse Patient Records regulations: The Federal rules restrict any use of the information to criminally investigate or prosecute any alcohol or drug abuse patient.[facility] HospitalIn the event this information is protected by the Federal Confidentiality of Alcohol and Drug Abuse Patient Records regulations: The Federal rules restrict any use of the information to criminally investigate or prosecute any alcohol or drug abuse patient.[facility] HospitalIn the event this information is protected by the Federal Confidentiality of Alcohol and Drug Abuse Patient Records regulations: The Federal rules restrict any use of the information to criminally investigate or prosecute any alcohol or drug abuse patient.[facility] HospitalIn the event this information is protected by the Federal Confidentiality of Alcohol and Drug Abuse Patient Records regulations: The Federal rules restrict any use of the information to criminally investigate or prosecute any alcohol or drug abuse patient.[facility] HospitalIn the event this information is protected by the Federal Confidentiality of Alcohol and Drug Abuse Patient Records regulations: The Federal rules restrict any use of the information to criminally investigate or prosecute any alcohol or drug abuse patient.[facility] HospitalIn the event this information is protected by the Federal Confidentiality of Alcohol and Drug Abuse Patient Records regulations: The Federal rules restrict any use of the information to criminally investigate or prosecute any alcohol or drug abuse patient.[facility] HospitalIn the event this information is protected by the Federal Confidentiality of Alcohol and Drug Abuse Patient Records regulations: The Federal rules restrict any use of the information to criminally investigate or prosecute any alcohol or drug abuse patient.[facility] HospitalIn the event this information is protected by the Federal Confidentiality of Alcohol and Drug Abuse Patient Records regulations: The Federal rules restrict any use of the information to criminally investigate or prosecute any alcohol or drug abuse patient.[facility] HospitalIn the event this information is protected by the Federal Confidentiality of Alcohol and Drug Abuse Patient Records regulations: The Federal rules restrict any use of the information to criminally investigate or prosecute any alcohol or drug abuse patient.[facility] HospitalIn the event this information is protected by the Federal Confidentiality of Alcohol and Drug Abuse Patient Records regulations: The Federal rules restrict any use of the information to criminally investigate or prosecute any alcohol or drug abuse patient.[facility] Reason for Visit (unrecogniz ed section and content) Reason Onset Date Comments Refill Request 02/06/2022 Reason Comments Urinary Problem Pt reported frequenc y, lower abd pressure, x3 day. 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 Some body aches Reason Comments Medication Problem Reason Comments Blood Pressure Reason Comments Results Reason Comments Blood Pressure check Reason Comments F/U 6 months Reason Comments Blood Pressure Check Reason Comments Permission to receive pt's health inform ation Reason Comments Patient Question Reason Comments CHF Reason Onset Date Comments Refill Request 01/14/2024 SEE RX NOTES Reason Comments pharmacy asking for new meter and strips rx Reason Comments Yearly Exam Reason Comments 4 month f/u Reason Onset Date Comments Refill Request 08/07/2024 Reason Comments 4 month f/u Reason Onset Date Comments Population Health Navigation Outreach 01/19/2025 [facility] [employer] [facility] Reason Comments Nausea & Vomiting Wheezing x this AM Reason Comments Xray Results Reason Onset Date Comments Refill Request 03/18/2025 Reason Comments Medication Request Reason Onset Date Comments Refill Request 04/21/2025 Reason Onset Date Comments Population Health Navigation Outreach 05/06/2025 [facility] [employer] [facility] Reason Comments Medicare Wellness Exam Reason Comments Pelvic Pain pressure x 3 days Care Teams (unrecognized sec tion and content) Instrument Lens Grinder Apprentice Relationship Specialty Start Date End Date Anju Pearce MD [address] [place] [address] PCP - General Internal Medicine 08/09/17 Kaylee (Pharmacist), [address] [place] [address] Pharmacist Pharmacy 12/30/18 Instrument Lens Grinder Apprentice Relationship Specialty Start Date End Date Anju Pearce MD [facility] [place] [address] PCP - General Internal Medicine 08/09/17 Kaylee (Pharmacist), [address] [place] [address] Pharmacist Pharmacy 12/30/18 Instrument Lens Grinder Apprentice Relationship Specialty Start Date End Date Anju Pearce MD [address] [place] [address] PCP - General Internal Medicine 08/09/17 Kaylee (Pharmacist), [address] [place] [address] Pharmacist Pharmacy 12/30/18 Instrument Lens Grinder Apprentice Relationship Specialty Start Date End Date Anju Pearce MD [address] [place] [address] PCP - General Internal Medicine 08/09/17 Kaylee (Pharmacist), [address] [place] [address] Pharmacist Pharmacy 12/30/18 Instrument Lens Grinder Apprentice Relationship Specialty Start Date End Date Anju Pearce MD [address] [facility] [place] [address] PCP - General Internal Medicine 08/09/17 Kaylee (Pharmacist), [address] [place] [address] Pharmacist Pharmacy 12/30/18 Instrument Lens Grinder Apprentice Relationship Specialty Start Date End Date Anju Pearce MD [address] [facility] [place] [address] PCP - General Internal Medicine 08/09/17 Kaylee (Pharmacist), [address] [place] [address] Pharmacist Pharmacy 12/30/18 Instrument Lens Grinder Apprentice Relationship Specialty Start Date End Date Anju Pearce MD [address] [facility] [place] [address] PCP - General Internal Medicine 08/09/17 Kaylee (Pharmacist), [address] [place] [address] Pharmacist Pharmacy 12/30/18 Instrument Lens Grinder Apprentice Relationship Specialty Start Date End Date Anju Pearce MD [address] [facility] [place] [address] PCP - General Internal Medicine 08/09/17 Kaylee (Pharmacist), [address] [place] [address] Pharmacist Pharmacy 12/30/18 Instrument Lens Grinder Apprentice Relationship Specialty Start Date End Date Anju Pearce MD [address] [facility] [place] [address] PCP - General Internal Medicine 08/09/17 Kaylee (Pharmacist), M[address] [place] [address] Pharmacist Pharmacy 12/30/18 Team Status: Active Member Role Status Dates Dr. Anju Pearce MD Family Provider Active Dr. Anju Pearce MD Primary Care Provider Active Team Status: Inactive Member Role Status Dates Dr. Anju Pearce MD Primary Care Provider, Referr ing Provider Active Farida PADILLA PA Attending Provider Active Team Status: Inactive Member Role Status Dates Dr. Anju Pearce MD Primary Care Provider Active Dr. Carlos Navarro MD Attending Provider, Emergency Provider Active Team Status: Active Member Role Status Dates Dr. Anju Pearce MD Primary Care Provider Active ROHAN FELIX Attending Provider, Referring Provider Active Instrument Lens Grinder Apprentice Relationship Specialty Start Date End Date Anju Pearce MD [address] [place] [address] PCP - General Internal Medicine 08/09/17 Kaylee (Pharmacist), Mignon [address] [place] [address] Pharmacist Pharmacy 12/30/18 Instrument Lens Grinder Apprentice Relationship Specialty Start Date End Date Anju Pearce MD [address] [place] [address] PCP - General Internal Medicine 08/09/17 Niravak (Pharmacist), Mignon [address] [place] [address] Pharmacist Pharmacy 12/30/18 Instrument Lens Grinder Apprentice Relationship Specialty Start Date End Date Anju Pearce MD [address] [place] [address] PCP - General Internal Medicine 08/09/17 Majercak (Pharmacist), Mignon [address] [place] [address] Pharmacist Pharmacy 12/30/18 Instrument Lens Grinder Apprentice Relationship Specialty Start Date End Date Anju Pearce MD [address] [place] [address] PCP - General Internal Medicine 08/09/17 Kaylee (Pharmacist), Mignon [address] [place] [address] Pharmacist Pharmacy 12/30/18 Instrument Lens Grinder Apprentice Relationship Specialty Start Date End Date Anju Pearce MD [address] [facility] [place] [address] PCP - General Internal Medicine 08/09/17 Kaylee (Pharmacist), Mignon [address] [place] [address] Pharmacist Pharmacy 12/30/18 Instrument Lens Grinder Apprentice Relationship Specialty Start Date End Date Anju Pearce MD [address] [facility] [place] [address] PCP - General Internal Medicine 08/09/17 Kaylee (Pharmacist), Mignon [address] [place] [address] Pharmacist Pharmacy 12/30/18 Instrument Lens Grinder Apprentice Relationship Specialty Start Date End Date Anju Pearce MD [address] [place] [address] PCP - General Internal Medicine 08/09/17 Kaylee (Pharmacist), Mignon [address] [place] [address] Pharmacist Pharmacy 12/30/18 Instrument Lens Grinder Apprentice Relationship Specialty Start Date End Date Anju Pearce MD [address] [place] [address] PCP - General Internal Medicine 08/09/17 Kaylee (Pharmacist), Mignon [address] [place] [address] Pharmacist Pharmacy 12/30/18 Instrument Lens Grinder Apprentice Relationship Specialty Start Date End Date Anju Pearce MD [address] [facility] [place] [address] PCP - General Internal Medicine 08/09/17 Kaylee (Pharmacist), Mignon [address] [place] [address] Pharmacist Pharmacy 12/30/18 Instrument Lens Grinder Apprentice Relationship Specialty Start Date End Date Anju Pearce MD [address] [facility] [place] [address] PCP - General Internal Medicine 08/09/17 Kaylee (Pharmacist), Mignon [address] [place] [address] Pharmacist Pharmacy 12/30/18 Instrument Lens Grinder Apprentice Relationship Specialty Start Date End Date Anju Pearce MD [address] [place] [address] PCP - General Internal Medicine 08/09/17 Kaylee (Pharmacist), Mignon [address] [place] [address] Pharmacist Pharmacy 12/30/18 Instrument Lens Grinder Apprentice Relationship Specialty Start Date End Date Anju Pearce MD [address] [place] [address] PCP - General Internal Medicine 08/09/17 Kaylee (Pharmacist), [address] [place] [address] Pharmacist Pharmacy 12/30/18 Instrument Lens Grinder Apprentice Relationship Specialty Start Date End Date Anju Pearce MD [address] [place] [address] PCP - General Internal Medicine 08/09/17 [place] [address] [place] [address] Pharmacist Pharmacy 10/31/23 Instrument Lens Grinder Apprentice Relationship Specialty Start Date End Date Anju Pearce MD [address] [place] [address] PCP - General Internal Medicine 08/09/17 [place] [address] [place] [address] Pharmacist Pharmacy 10/31/23 Instrument Lens Grinder Apprentice Relationship Specialty Start Date End Date Anju Pearce MD [address] [facility] [place] [address] PCP - General Internal Medicine 08/09/17 Instrument Lens Grinder Apprentice Relationship Specialty Start Date End Date Anju Pearce MD [address] [facility] [place] [address] PCP - General Internal Medicine 08/09/17 Instrument Lens Grinder Apprentice Relationship Specialty Start Date End Date Anju Pearce MD [address] [facility] [place] [address] PCP - General Internal Medicine 08/09/17 Instrument Lens Grinder Apprentice Relationship Specialty Start Date End Date Anju Pearce MD [address] [facility] [place] [address] PCP - General Internal Medicine 08/09/17 Instrument Lens Grinder Apprentice Relationship Specialty Start Date End Date Anju Pearce MD [address] [facility] [place] [address] PCP - General Internal Medicine 08/09/17 Instrument Lens Grinder Apprentice Relationship Specialty Start Date End Date Anju Pearce MD [address] [facility] [place] [address] PCP - General Internal Medicine 08/09/17 Instrument Lens Grinder Apprentice Relationship Specialty Start Date End Date Anju Pearce MD [address] [facility] [place] [address] PCP - General Internal Medicine 08/09/17 Instrument Lens Grinder Apprentice Relationship Specialty Start Date End Date Anju Pearce MD [address] [facility] [place] [address] PCP - General Internal Medicine 08/09/17 Instrument Lens Grinder Apprentice Relationship Specialty Start Date End Date Anju Pearce MD [address] [place] [address] PCP - General Internal Medicine 08/09/17 Instrument Lens Grinder Apprentice Relationship Specialty Start Date End Date Anju Pearce MD [address] [place] [address] PCP - General Internal Medicine 08/09/17 Instrument Lens Grinder Apprentice Relationship Specialty Start Date End Date Anju Pearce MD [address] [place] [address] PCP - General Internal Medicine 08/09/17 Ishmael Davis, CIVIL CAD TECH.BRICK CLEANER [address] [place] [address] Options Advisor Internal Medicine 10/13/24 Iesha Waddell CIVIL CAD TECH.EVENTS ASSISTANT [address] [place] [address] Options Advisor Internal Medicine 10/13/24 Instrument Lens Grinder Apprentice Relationship Specialty Start Date End Date Anju Pearce MD [address] [place] [address] PCP - General Internal Medicine 08/09/17 Ishmael Davis, CIVIL CAD TECH.BRICK CLEANER [address] [place] [address] Options Advisor Internal Medicine 10/13/24 Iesha Waddell CIVIL CAD TECH.EVENTS ASSISTANT [address] [place] [address] Options Advisor Internal Medicine 10/13/24 Instrument Lens Grinder Apprentice Relationship Specialty Start Date End Date Anju Pearce MD [address] [place] [address] PCP - General Internal Medicine 08/09/17 Ishmael Davis, CIVIL CAD TECH.BRICK CLEANER [address] [place] [address] Options Advisor Internal Medicine 10/13/24 Iesha Waddell CIVIL CAD TECH.EVENTS ASSISTANT [address] [facility] [place] [address] [facility] Internal Medicine 10/13/24 Instrument Lens Grinder Apprentice Relationship Specialty Start Date End Date Anju Pearce MD [address] [place] [address] PCP - General Internal Medicine 08/09/17 Ishmael Davis, CIVIL CAD TECH.BRICK CLEANER [address] [facility] [place] [address] Options Advisor Internal Medicine 10/13/24 Iesha Waddell CIVIL CAD TECH.EVENTS ASSISTANT [address] [place] [address] Options Advisor Internal Medicine 10/13/24 Instrument Lens Grinder Apprentice Relationship Specialty Start Date End Date Anju Pearce MD [address] [facility] [place] [address] PCP - General Internal Medicine 08/09/17 Ishmael Davis, CIVIL CAD TECH.BRICK CLEANER [address] [facility] [place] [address] Options Advisor Internal Medicine 10/13/24 Iesha Waddell CIVIL CAD TECH.EVENTS ASSISTANT [address] [place] [address] Options Advisor Internal Medicine 10/13/24 Instrument Lens Grinder Apprentice Relationship Specialty Start Date End Date Anju Pearce MD [address] [place] [address] PCP - General Internal Medicine 08/09/17 Ishmael Davis, CIVIL CAD TECH.BRICK CLEANER [address] [place] [address] Options Advisor Internal Medicine 10/13/24 Iesha Waddell CIVIL CAD TECH.EVENTS ASSISTANT [address] [place] [address] Options Advisor Internal Medicine 10/13/24 Instrument Lens Grinder Apprentice Relationship Specialty Start Date End Date Anju Pearce MD [address] [place] [address] PCP - General Internal Medicine 08/09/17 Ishmael Davis, CIVIL CAD TECH.BRICK CLEANER [address] [place] [address] Options Advisor Internal Medicine 10/13/24 Iesha Waddell CIVIL CAD TECH.EVENTS ASSISTANT [address] [place] [address] Options Advisor Internal Medicine 01/27/25 Instrument Lens Grinder Apprentice Relationship Specialty Start Date End Date Anju Pearce MD [address] [place] [address] PCP - General Internal Medicine 08/09/17 Ishmael Davis, CIVIL CAD TECH.BRICK CLEANER [address] [place] [address] Options Advisor Internal Medicine 10/13/24 Iesha Waddell APRN.EVENTS ASSISTANT [address] [place] [address] Options Advisor Internal Medicine 01/27/25 Instrument Lens Grinder Apprentice Relationship Specialty Start Date End Date Anju Pearce MD [address] [place] [address] PCP - General Internal Medicine 08/09/17 Ishmael Davis, CIVIL CAD TECH.BRICK CLEANER [address] [place] [address] Options Advisor Internal Medicine 10/13/24 Iesha Waddell CIVIL CAD TECH.EVENTS ASSISTANT [address] [place] [address] Options Advisor Internal Medicine 01/27/25 Instrument Lens Grinder Apprentice Relationship Specialty Start Date End Date Anju Pearce MD [address] [place] [address] PCP - General Internal Medicine 08/09/17 Ishmael Davis, CIVIL CAD TECH.BRICK CLEANER [address] [place] [address] Options Advisor Internal Medicine 10/13/24 Iesha Waddell CIVIL CAD TECH.EVENTS ASSISTANT [address] [place] [address] [facility] Internal Medicine 01/27/25 Instrument Lens Grinder Apprentice Relationship Specialty Start Date End Date Anju Pearce MD [address] [place] [address] PCP - General Internal Medicine 08/09/17 Ishmael Davis, CIVIL CAD TECH.BRICK CLEANER [address] [facility] [place] [address] Options Advisor Internal Medicine 10/13/24 Iesha Waddell CIVIL CAD TECH.EVENTS ASSISTANT [address] [facility] [place] [address] Options Advisor Internal Medicine 01/27/25 Instrument Lens Grinder Apprentice Relationship Specialty Start Date End Date Anju Pearce MD [address] [facility] [place] [address] PCP - General Internal Medicine 08/09/17 Iesha Waddell CIVIL CAD TECH.EVENTS ASSISTANT [address] [facility] [place] [address] Options Advisor Internal Medicine 01/27/25 Ishmael Davis, CIVIL CAD TECH.BRICK CLEANER [address] [facility] [place] [address] [facility] Internal Medicine 03/25/25 Instrument Lens Grinder Apprentice Relationship Specialty Start Date End Date Anju Pearce MD [address] [facility] [place] [address] PCP - General Internal Medicine 08/09/17 Iesha Waddell CIVIL CAD TECH.EVENTS ASSISTANT [address] [facility] [place] [address] Options Advisor Internal Medicine 01/27/25 Ishmael Davis, CIVIL CAD TECH.BRICK CLEANER [address] [facility] [place] [address] [facility] Internal Medicine 03/25/25 Instrument Lens Grinder Apprentice Relationship Specialty Start Date End Date Anju Pearce MD [address] [facility] [place] [address] PCP - General Internal Medicine 08/09/17 Iesha Waddell, CIVIL CAD TECH.EVENTS ASSISTANT [address] [facility] [place] [address] Options Advisor Internal Medicine 01/27/25 Ishmael Davis, CIVIL CAD TECH.BRICK CLEANER [address] [facility] [place] [address] [facility] Internal Medicine 03/25/25 Instrument Lens Grinder Apprentice Relationship Specialty Start Date End Date Anju Pearce MD [address] [facility] [place] [address] PCP - General Internal Medicine 08/09/17 Ishmael Davis, CIVIL CAD TECH.BRICK CLEANER [address] [facility] [place] [address] Options Advisor Internal Medicine 10/13/24 03/24/25 Iesha Waddell, CIVIL CAD TECH.EVENTS ASSISTANT [address] [facility] [place] [address] Options Advisor Internal Medicine 01/27/25 Ishmael Davis, CIVIL CAD TECH.BRICK CLEANER [address] [facility] [place] [address] Options Advisor Internal Medicine 03/25/25 Team Status: Active Member Role Status Dates Dr. Anju Pearce MD Primary Care Provider Active Team Status: Inactive Member Role Status Dates Dr. Anju Pearce MD Primary Care Provider Active Start: January 05, 2025 End: January 05, 2025 Dr. Igor Wells DO Attending Provider Active Start: January 05, 2025 End: January 05, 2025 Dr. Igor Wells DO Emergency Provider Active Start: January 05, 2025 End: January 05, 2025 Team Status: Inactive Member Role Status Dates Dr. Anju Pearce MD Primary Care Provider Active Start: April 30, 2025 End: April 30, 2025 Dr. Anju Pearce MD Referring Provider Active Start: April 30, 2025 End: April 30, 2025 Marika George PA, PA Attending Provider Active Start: April 30, 2025 End: April 30, 2025 Instrument Lens Grinder Apprentice Relationship Specialty Start Date End Date Anju Pearce MD [address] [facility] [place] [address] PCP - General Internal Medicine 08/09/17 Iesha Waddell CIVIL CAD TECH.EVENTS ASSISTANT [address] [facility] [place] [address] Options Advisor Internal Medicine 01/27/25 Ishmael Davis, CIVIL CAD TECH.BRICK CLEANER [address] [facility] [place] [address] Options Advisor Internal Medicine 03/25/25 Instrument Lens Grinder Apprentice Relationship Specialty Start Date End Date Anju Pearce MD [address] [facility] [place] [address] PCP - General Internal Medicine 08/09/17 Iesha Waddell CIVIL CAD TECH.EVENTS ASSISTANT [address] [facility] [place] [address] Options Advisor Internal Medicine 01/27/25 Ishmael Davis, CIVIL CAD TECH.BRICK CLEANER [address] [facility] [place] [address] [facility] Internal Medicine 03/25/25 Goals (unrecognized section and content) Goals may be documented in a n alternate sectionGoals may be documented in an alternate sectionGoals may be documented in an alternate sectionGoals may be documented in an alternate sectionGoals may be documented in an alternate sectionGoals may be documented in an alternate section FOR RECORDS PERTAINING TO PATIENTS WHO ARE OR HAVE BEEN ENROLLED IN A CHEMICAL DEPENDENCY/SUBSTANCEABUSE PROGRAM, SOME INFORMATION MAY BE OMITTED. This clinical summary was aggregated from multiple sources. Caution should be exercised in using it in the provision of clinical care. This summary normalizes information from multiple sources, and as a consequence, information in this document may materially change the coding, format and clinical context of patient data. In addition, data may be omitted in some cases. CLINICAL DECISIONS SHOULD BE BASED ON THE PRIMARY CLINICAL RECORDS. [facility]. provides no warranty or guarantee of the accuracy or completeness of information in this document.
[2025-06-14 09:01] LABS: Hematocrit 30.2 % (37-47); Hemoglobin 9.8 g/dL (12.0-15.0); Immature Granulocytes Count 0.040 X10^3/uL (0.0-0.0); Mean Corp Hgb Conc 32.5 g/dL (32-36); Mean Corpuscular Volume 90.7 fL (81-99); Mean Platelet Vol. 10.5 fl (6.2-12.0); NRBC Flagged by Analyzer 0 % (0-5); Platelet Count 342 K/mm3 (150-450); RBC Distribution Width CV 14.0 % (11.6-14.6); RBC Distribution Width SD 46.9 fl (35.1-43.9); Red Blood Count 3.33 M/mm3 (4.2-5.4); White Blood Count 12.3 K/mm3 (4.4-11.0)
--- NOTE | 2025-06-14 09:05 | RAD_ITS ---
PROCEDURE: CHEST PA AND LATERAL 06/14/2025 REASON FOR EXAM: WEAKNESS TECHNIQUE: CHEST PA AND LATERAL COMPARISON: XR chest PA and Lateral 05-Jan-2025 11:39 AM FINDINGS: LUNGS AND PLEURA: No focal airspace consolidation. No pleural effusion or pneumothorax. HEART AND MEDIASTINUM: The cardiac silhouette is mildly enlarged. The mediastinal contour is normal. 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 PULMONARY VESSELS: Mild prominence of the central pulmonary vasculature. BONES: No acute osseous abnormality. OTHER: Right upper abdominal surgical clips. The abdominal aorta is calcified. RAD/Chest PA and Lateral IMPRESSION: Cardiomegaly with mild vascular congestion. Reading Location: [id number]
[2025-06-14 09:18] LABS: AST(SGOT) 23 U/L (<=31); Alanine Aminotransfer ALT/SGPT 19 U/L (<=34); Albumin, Serum 4.2 g/dL (3.4-4.8); Alkaline Phosphatase 94 U/L (35-104); Anion Gap 15 (5-15); BUN 53 mg/dL (4-19); BUN/Creat Ratio 21.4 RATIO (10-20); Calcium,Total 9.5 mg/dL (7.6-11.0); Carbon Dioxide 17.1 mmol/L (21.0-32.0); Chloride 105 mmol/L (98-108); Estimated Creatinine Clearance 15.50 ml/min (50-250); Globulin 2.9 g/dL (2.2-4.2); Glucose 156 mg/dL (70-99); Potassium 4.7 mmol/L (3.3-5.1)
--- NOTE | 2025-06-14 09:38 | CM.ED ---
Social Work Date of referral: 06/14/25 Reason for referral: Advanced Care Directives (ACD's) not showing up as being in patient's medical records Referred by: Social Work Identification Upon chart review, director of social services discovered that patient's ACD's have already been scanned into patient's medical records and are on file. No additional follow up needed at this time. Leona Holt, MUCKER OPERATOR, PATTERNMAKER METAL
[2025-06-14 10:10] LABS: Mucous, Urine 0 SEEN /hpf (<or=2+)
[2025-06-14 10:14] LABS: Color, Urine Yellow (Yellow); Glucose, Dipstick 100 mg/dl (Normal); Ketone-Dipstick Negative (Negative); Leukocyte Esterase-Dipstick Negative /ul (Negative); Nitrite-Dipstick Negative (Negative); Occult Blood-Urine 10 /ul (Negative); Protein-Dipstick 500 mg/dl (Negative); Specific Gravity, Urine 1.020 (1.002-1.030); Urine Bilirubin Dipstick Negative (Negative)
[2025-06-14 10:26] LABS: Red Blood Cells-Urine 0-5 SEEN /hpf (0-5); Squamous Epithelial Cells - UA 0-5 SEEN /hpf (5-10)
--- NOTE | 2025-06-14 11:31 | PCM.HP.STD ---
HPI - General General Date of Admission: 06/14/25 Date of Service: 06/14/25 Chief Complaint: Generalized weakness HPI Narrative CONCHA WOODWARD, is a 89 F who presents generalized weakness. Patient has multiple comorbidities including coronary artery disease status post CABG, chronic kidney disease stage III presented to the emergency department with progressive generalized weakness. Per patient he had recently been treated for acute cystitis has not felt well since. Also did admit to decreased oral intake. Presented to the emergency department as a result found to have worsening kidney function admitted to regular nursing floor as a case of SHA [facility] Medical History Atherosclerosis of coronary artery of burns [place] heart without angina pectoris Bilateral renal cysts STEMI (ST elevation myocardial infarction) Acute renal failure superimposed on stage 3 chronic kidney disease Paroxysmal atrial fibrillation with RVR Carotid stenosis, right Decubitus ulcer, stage II Thrombocytopenia Acute blood loss anemia Chronic renal failure, stage 3 (moderate) Benign paroxysmal positional vertigo Mild atrial enlargement, left Nonrheumatic mitral valve regurgitation Internal hemorrhoids Diverticulosis Ischemic cardiomyopathy Hypertension Diabetes Physical debility Constipation due to pain medication Gout Basal ganglia infarction Intracranial meningioma Type II diabetes mellitus Benign hypertension Home Medications ?Medication ?Instructions ?Recorded ?Last Taken ?Type allopurinol 100 mg tablet 100 mg PO DAILYCM gout 04/28/14 01/03/20 History aspirin 81 mg chewable tablet 81 mg PO DAILY heart 01/17/20 Unknown History calcium carbonate-vitamin D3 600 1 ea PO DAILY bones 01/17/20 Unknown History mg-125 unit tablet metoprolol succinate 100 mg 100 mg PO DAILY bp 01/17/20 Unknown History tablet,extended release 24 hr propylene glycol 0.6 % eye drops 1 drp ophthalmic (eye) QHS Dry Eyes 06/28/20 Unknown History (Systane Balance) losartan 50 mg tablet 50 mg PO QDAY 09/22/24 Unknown History amlodipine 10 mg tablet 10 mg PO QDAY 04/30/25 Unknown History insulin aspart U-100 100 unit/mL 7 unit subcut QAC dm 04/30/25 Unknown History (3 mL) subcutaneous pen rosuvastatin 5 mg tablet 5 mg PO QDAY 04/30/25 Unknown History insulin glargine-yfgn 100 unit/mL 14 unit subcut QHS 06/14/25 Unknown History (3 mL) subcutaneous pen Allergy/AdvReac Type Severity Reaction Status Date / Time codeine AdvReac Nausea/Vom/ Verified 04/30/25 15:26 Diarrhea morphine AdvReac Nausea/Vom/ Verified 04/30/25 15:26 Diarrhea Family History Aunt Breast cancer Mother Heart disease Father Heart disease Surgical History History of cholecystectomy History of coronary artery bypass graft H/O angioplasty History of left heart catheterization tubal Social History number of children: 2 current occupational status: retired Smoking Status: Former smoker alcohol intake: never substance use type: does not use diet: diabetic caffeine: Yes Type: coffee Number of servings: 1 seatbelt use: always do you feel safe at home: Yes additional social history: 2 children adopted ROS ROS Narrative GENERAL: Generalized weakness HEENT: denies headache, sinus congestion, or drainage, dysphagia RESPIRATORY: denies cough, sputum production, shortness of breath, CARDIAC: denies chest pain, palpitations, orthopnea, PND GASTROINTESTINAL: Nausea but no vomiting GENITOURINARY: denies dysuria, urgency, frequency, heamaturia EXTREMITY: denies swelling MUSCULOSKELETAL: denies current joint pain or tenderness NEUROLOGIC: denies focal numbness, weakness, tingling HEMATOLOGIC: denies easy bruising and/or hemorrhage INTEGUMENT: denies rashes PSYCHIATRIC: denies suicidal or homicidal ideation Vital Signs Vital Signs Vital Signs: 06/14/25 08:17 06/14/25 08:19 06/14/25 08:37 Temperature 98.6 F 98.6 F Temperature Source Temporal Oral Pulse Rate 74 74 Respiratory Rate 16 16 Respiratory Effort Normal Blood Pressure 145/83 H 145/83 H Blood Pressure Mean 103 103 Pulse Ox 96 96 Oxygen Delivery Method Room Air Room Air 06/14/25 09:19 06/14/25 10:19 06/14/25 11:00 Temperature 98.6 F 98.6 F 98.6 F Temperature Source Oral Oral Oral Pulse Rate 69 69 68 Respiratory Rate 22 H 19 H 24 H Respiratory Effort Blood Pressure 168/64 H 160/72 H 165/62 H Blood Pressure Mean 98 101 96 Pulse Ox 97 97 Oxygen Delivery Method Room Air 06/14/25 11:29 Temperature 98.6 F Temperature Source Pulse Rate 68 Respiratory Rate 24 H Respiratory Effort Blood Pressure 165/62 H Blood Pressure Mean 96 Pulse Ox 97 Oxygen Delivery Method Weight Weight: 76.7 kg Body Mass Index (BMI) 29.9 Physical Exam Narrative GENERAL: cooperative HEENT: Atraumatic; normocephalic EYES; Anicteric, Normal Conjunctiva NECK; supple, normal thyroid, RESPIRATORY: Diminished to auscultation CARDIOVASCULAR: Regular S1 S2, GI: soft, normoactive bowel sounds, : No Renal angle tenderness; EXTREMITIES: No edema, no clubbing, MUSCULOSKELETAL: no muscle wasting NEURO: Awake; no lateralizing signs. SKIN: No Rash PSYCH; Flat affect Results Lab / Micro Data 06/14/25 08:52 06/14/25 08:52 Labs: Laboratory Results - last 24 hr 06/14/25 08:52: WBC 12.3 H, RBC 3.33 L, Hgb 9.8 L, Hct 30.2 L, MCV 90.7, MCH 29.4, MCHC 32.5, RDW Std Deviation 46.9 H, RDW Coeff of [place] 14.0, Plt Count 342, MPV 10.5, Immature Gran % (Auto) 0.300, Neut % (Auto) 77.1 H, Lymph % (Auto) 16.9 L, [place] % (Auto) 4.9, Eos % (Auto) 0.3, Baso % (Auto) 0.5, Absolute Neuts (auto) 9.5 H, Absolute Lymphs (auto) 2.09, Nucleated RBC % 0, Sodium 136, Potassium 4.7, Chloride 105, Carbon Dioxide 17.1 L, Anion Gap 15, BUN 53 H, Creatinine 2.46 H, Estim Creat Clear Calc 15.50 L, Est GFR (MDRD) Non-Af 18 L, BUN/Creatinine Ratio 21.4 H, Glucose 156 H, Calcium 9.5, Total Bilirubin 0.51, AST 23, ALT 19, Alkaline Phosphatase 94, Total Protein 7.1, Albumin 4.2, Globulin 2.9, Albumin/Globulin Ratio 1.4 06/14/25 10:02: POC Glucose 120 H 06/14/25 10:05: Urine Color Yellow, Urine Clarity Clear, Urine pH 6.0, Ur Specific [place] 1.020, Urine Protein 500 H, Urine Glucose (UA) 100 H, Urine Ketones Negative, Urine Occult Blood 10 H, Urine Nitrite Negative, Urine Bilirubin Negative, Urine Urobilinogen Normal, Ur Leukocyte Esterase Negative, Urine RBC 0-5 SEEN, Urine WBC 0-5 SEEN, Ur Squamous Epith Cells 0-5 SEEN, Urine Bacteria 0 SEEN, Hyaline Casts 0-5 SEEN, Urine Mucus 0 SEEN Rhythm Strip Rhythm Strip: Sinus Rhythm Rate: 72 Ectopy: None Imaging Radiology Impression Chest X-Ray 06/14/25 09:05 IMPRESSION: Cardiomegaly with mild vascular congestion. Reading Location: [facility] Assessment & Plan Assessment/Plan (1) SHA (acute kidney injury): PLAN: Plan Patient is an 89-year-old female presenting with progressive generalized weakness 1. SHA ? Superimposed on chronic kidney disease stage III. This is suspected to be secondary to decreased oral intake patient started on IV fluid with subsequent monitoring of electrolytes ordered. Also ordered kidney ultrasound to rule out obstructive uropathy 2. Hypertension ? Blood pressure controlled, home medications continued with dose adjustment as needed 3. Diabetes mellitus type II -patient's oral hypoglycemics held. Placed on long acting insulin, Accu-Cheks a.c. and at bedtime and covered with sliding scale insulin 4. Class I obesity with BMI of 30 ? Weight loss advised 5. Dyslipidemia ?Patient is on statin therapy, continued at home dose 6. Coronary artery disease ? Treated previous CABG(CHAUDHARI to diagonal sequenced to LAD, SVG to OM sequenced to RPL) in January 2020. Patient remains on guideline directed medical therapy 7. Paroxysmal atrial fibrillation ? Per history patient has no recollection 8. 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 History of intracranial meningioma ? Treated with laser therapy at the [facility] 10. DVT prophylaxis ? Subcu heparin 11. Physical deconditioning ? Requested for PT OT eval and high school social studies tutor to assist with discharge planning Time spent in the patient's overall evaluation,decision-making process, review of diagnostic data, adjustment of management, discussion with other providers, nursing nursing and ancillary staff involved in patient's care documentation, 75 Minutes Advance planning; did discuss with the patient and family (her daughter who appears to be an RN) regarding advanced directives as well as CODE STATUS. Did explain the various scenarios involved ( FULL CODE, DNR CCA, DNR CCA with no intubation, and DNR CC and what each meant) patient elected to remain full code with CPR and intubation if warranted. Order was placed. Time spent on discussion 16 minutes. Charges/Coding Multi Select Codes Visit Charges Visit Charges: 03722 Init [place] [id number] Hospitalists' Procedures Procedures: 88330 Advncd Care Plan 30 Min
--- OUTSIDE RECORDS SUMMARY | 2025-06-14 12:06 | XMS RPT_ITS | CCD ---
Author Organization [facility] Care Team Providers Care Freight Claim Investigator Name Role Phone Anju Pearce MD Primary [...] Pearce Referring Provider RANDY Betancourt Attending Provider [facility], [place] Unavailable Anju Pearce MD Primary Care Provider Ryan FAMILY INTERVENTION SPECIALIST.NUCLEAR MEDICINE TECH, Ishmael Unavailable Bairon FAMILY INTERVENTION SPECIALIST.LENS GRINDER ROUGH, Iesha Unavailable [place] FAMILY INTERVENTION SPECIALIST.LENS GRINDER ROUGH, Iesha Unavailable [place] FAMILY INTERVENTION SPECIALIST.LENS GRINDER ROUGH, Iesha Unavailable Davis FAMILY INTERVENTION SPECIALIST.NUCLEAR MEDICINE TECH, Ishmael Unavailable Davis FAMILY INTERVENTION SPECIALIST.NUCLEAR MEDICINE TECH, Ishmael Unavailable Kelvin RIVERA, Dr. Anju Mcdonald Primary Care Provider [phone] Russell MOLINA, Dr. Costa Attending Provider Dr. Igor Wells DO Emergency Provider Kelvin RIVERA, Dr. Anju Mcdonald Referring Provider Marika Brown Attending Provider Harris Kessler Attending [...] Translations: [CODEINE] Drug Allergy 08-31-20 05 Vomiting [facility] Work Phone: (2 sources) HMG-CoA reductase inhibitor; Translations: [XEDHAWL-VGT-WBN REDUCTASE INHIBITORS] Propensity to adverse reactions 05-25-20 09 Intolerance [facility] Work Phone: (20 sources) predniSONE; Translations: [PREDNISONE] Drug Allergy 09-05-20 12 Vomiting [facility] (20 sources) Sulfamethoxazole / Trimethoprim; Translations: [SULFAMETHOXAZOLE-T RIMETHOPRIM] Drug Allergy 06-10-20 08 Vomiting [facility] (20 sources) traMADol; Translations: [TRAMADOL HCL] Drug Allergy 01-18-20 13 Vomiting [facility] Work Phone: (20 sources) HMG-CoA reductase inhibitor Propensity to adverse reactions 05-25-20 09 Intolerance [facility] Work Phone: (2 sources) Morphine Drug Allergy 10-04-20 22 Nausea/Vom/Cecy rrhea [facility] (20 sources) dapagliflozin; Translations: [DAPAGLIFLOZIN] Drug Allergy 09-12-20 24 GI Upset [facility] (1 source) Codeine Drug Allergy 04-30-20 25 [facility] (1 source) Morphine Drug Allergy 04-30-20 25 [facility] Medications Current Medications Medication Drug Class(es) Dates Sig (Normalized) Sig (Original) allopurinol 100 mg oral tablet (20 sources) Xanthine Oxidase Inhibitor Start: 04-28-2014 End: 01-16-2025 take 1 tablet by mouth once daily allopurinol (ZYLOPRIM) 100 mg tablet Indications: Hyperuricemia , Idiopathic gout of multiple sites, unspecified chronicity Take 1 tablet by mouth once daily. 90 tablet 3 01/16/2025 Active Comment on above: Take 1 tablet by crystal once daily. amLODIPine 10 mg oral tablet (20 sources) Dihydropyridine Calcium Channel Shravan Start: 08-23-2023 End: 04-21-2025 take 1 tablet by mouth once daily, then take 1 tablet by mouth once daily amLODIPine (NORVASC) 10 mg tablet Indications: Hypertension goal BP (blood pressure) Take 1 tablet by mouth once daily. Dose change, take 1 daily 90 tablet 3 04/21/2025 Active Start: 2020 End: 04-30-2025 take 1 tablet by mouth once daily Amlodipine 5 mg tablet Discontinued 5 mg PO DAILY 2020 12:00am April 30, 2025 4:04pm Comment on above: Take 1 tablet by crystal th once daily. Take 1 tablet by crystal th once daily. Dose change, take 1 daily aspirin 81 mg chewable tablet (20 sources) Platelet Aggregation Inhibitor, Nonsteroidal Anti-inflammatory Drug Start: 01-17-2020 take 1 tablet by mouth once daily aspirin 81 mg chewable tablet Take 1 tablet by mouth once daily. 01/17/2020 Active Start: 04-28-2014 End: 04-30-2014 take 1 tablet by mouth once daily Aspirin 325 MG tablet Discontinued 325 mg PO DAILY@0800 April 28, 2014 12:00am April 30, 2014 1:26pm Comment on above: Take 1 tablet by crystal th once daily. Blood-Glucose Meter (TRUE METRIX GLUCOSE METER) (20 sources) Start: 01-14-2024 Blood-Glucose Meter (TRUE METRIX GLUCOSE METER) 1 Kit three times a day. testing 3 times daily DX E11.65 Insulin Yes 1 Each 01/14/2024 Active Start: 01-14-2024 Blood-Glucose Meter (TRUE METRIX GLUCOSE METER) 1 Kit three times a day. testing 3 times daily DX E11.65 Insulin Yes 1 Each 0 01/14/2024 Active Comment on above: 1 Kit three times a day. testing 3 times daily DX E11.65 Insulin Yes calcium carbonate 600 mg / cholecalciferol 125 unt oral tablet (20 sources) Vitamin D Start: 01-17-2020 Calcium Carbonate-Vitamin D3 Active 1 EACH PO DAILY January 17, 2020 12:00am Start: 04-25-2017 take 1 tablet by crystal th once daily calcium carbonate 600 mg-cholecalciferol 400 units 600 mg-10 mcg (400 unit) tab Take 1 tablet by mouth once daily. 0 04/25/2017 Active Comment on above: Take 1 tablet by crystal th once daily. Calcium Carbonate-Vitamin D3 1 EACH tablet (1 source) Start: 0 Calcium Carbonate-Vitamin D3 1 EACH tablet Active 1 NMA PO DAILY January 17, 2020 12:00am carbamide peroxide 65 mg/ml otic solution (20 sources) Start: 4 carbamide peroxide (DEBROX) 6.5 % otic solution Use 5 Drops in both ears two times a day. 15 mL 05/12/2024 Active cephalexin 250 mg oral capsule (4 sources) Cephalosporin Antibacterial Start: 5 End: 5 take 1 capsule by mouth twice daily cephALEXin (KEFLEX) 250 mg capsule Indications: Hematuria, unspecified type Take 1 capsule by mouth two times a day for 5 days. 10 capsule 06/02/2025 06/07/2025 Active Start: 06-25-2022 End: 07-02-2022 take 1 capsule by mouth twice daily cephALEXin (KEFLEX) 500 mg capsule Take 1 capsule by mouth twice daily for 7 days. 14 capsule 0 06/25/2022 07/02/2022 Active Comment on above: Take 1 capsule by mo ut twice daily for 7 days. cholecalciferol 0.025 mg oral capsule (20 sources) Vitamin D Start: 08-30-20 20 take [id number] [IU] by mouth once daily Cholecalciferol, Vitamin D3, 25 mcg (1,000 unit) cap Take 1 capsule by mouth once daily. (1000 to 2000 IU daily fine) 08/30/2020 Active Comment on above: Take 1 capsule by mo ut once daily. (1000 to 2000 IU daily fine) cycloSPORINE 0.5 mg/ml ophthalmic suspension (20 sources) Calcineurin Inhibitor Immunosuppressant Start: 08-08-20 17 take 1 drop(s) into the eye(s) twice daily RESTASIS 0.05 % ophthalmic emulsion Use 1 Drop in both eyes twice daily. 3 08/08/2017 Active Start: 08-08-2017 take 1 drop(s) into the eye(s) twice daily RESTASIS 0.05 % ophthalmic emulsion Use 1 Drop in both eyes twice daily. 3 08/08/2017 Active Comment on above: Use 1 Drop in both e yes twice daily. dapagliflozin 5 mg oral tablet (6 sources) Sodium-Glucose Cotransporter 2 Inhibitor Start: End: take 1 tablet by mouth once daily at breakfast dapagliflozin propanediol (FARXIGA) 5 mg tablet Take 1 tablet by mouth daily with breakfast. 30 tablet 05/12/2024 09/18/2024 Discontinued (Side Effects) 3 ml insulin aspart, human 100 unt/ml pen injector (20 sources) Insulin Analog Start: Insulin Aspart U-100 100 unit/mL (3 mL) insulin pen Active 7 U SC before meals April 30, 2025 3:27pm 8 units AM, 3 units, 6 units dinner Start: 01-08-2025 inject 8 [IU] by sub cutaneous injection once daily at breakfast, then inject 3 [IU] by subcutaneous injection once daily at lunch, then inject 6 [IU] by subcutaneous injection once daily at dinner insulin aspart U-100 (NOVOLOG) 100 unit/mL (3 mL) inject 8 units subcutaneously once daily WITH BREAKFAST AND 3 UNITS DAILY WITH LUNCH AND 6 UNITS DAILY WITH DINNER 15 mL 3 01/08/2025 Active Start: 01-05-2025 End: 01-08-2025 inject 8 [IU] by subcutaneous injection once daily at breakfast, then inject 3 [IU] by subcutaneous injection once daily at lunch, then inject 6 [IU] by subcutaneous injection once daily at dinner Insulin Aspart (NOVOLOG) 100 unit/mL crtg Inject 8 Units subcutaneously daily with breakfast AND 3 Units daily with lunch AND 6 Units daily with dinner 15 Each 01/07/2025 01/08/2025 Discontinued Start: 06-19-2024 End: 06-21-2024 insulin aspart U-100 (NOVOLO G FLEXPEN U-100 INSULIN) 100 unit/mL (3 mL) Take 8 units with breakfast, 4 units with lunch, and 6 units with dinner. Fiasp not currently available at pharmacy. 15 Each 06/19/2024 06/21/2024 Discontinued (Not on Formulary) Start: 11-05-2023 End: 01-05-2025 inject 8 [IU] by subcutaneous injection once daily at breakfast, then inject 4 [IU] by subcutaneous injection once daily at lunch, then inject 6 [IU] by subcutaneous injection once daily at dinner insulin aspart, niacinamide, (FIASP FLEXTOUCH U-100 INSULIN) 100 unit/mL (3 mL) pen Inject 8 Units subcutaneously daily with breakfast AND 4 Units daily with lunch AND 6 Units daily with dinner. Will switch from Novolog to Fiasp in 2023. HOLD LUNCH TIME INSULIN FOR NOW. 15 Each 3 06/19/2024 01/05/2025 Discontinued Start: 11-05-2023 inject 8-12 [IU] by subcutaneous injection once daily at breakfast, then inject 6 [IU] by subcutaneous injection once daily at lunch, then inject 10 [IU] by subcutaneous injection once daily at dinner insulin aspart, niacinamide, (FIASP FLEXTOUCH U-100 INSULIN) 100 unit/mL (3 mL) pen Inject 8-12 Units subcutaneously daily with breakfast AND 6 Units daily with lunch AND 10 Units daily with dinner. 15 Each 3 11/05/2023 Active Start: 10-31-2023 End: 01-11-2024 insulin aspart U-100 (NOVOLO G FLEXPEN U-100 INSULIN) 100 unit/mL (3 mL) Take 8 units with breakfast, 3 units with lunch, and 6 units with dinner. Will be switching to Fiasp in 2023. 15 Each 3 10/31/2023 01/11/2024 Discontinued (Not on Formulary) Start: 04-17-2023 insulin aspart U-100 (NOVOLOG FLEXPEN U-100 INSULIN) 100 unit/mL (3 mL) Take 8-12 units breakfast, 6 units lunch, and 10 units dinner 15 Each 3 04/17/2023 Active Start: 08-22-2022 insulin aspart U-100 (NOVOLOG FLEXPEN U-100 INSULIN) 100 unit/mL (3 mL) Take 8-12 units breakfast, 6 units lunch, and 10 units dinner 15 Each 3 08/22/2022 Active Start: 01-02-2022 End: 08-19-2022 insulin aspart U-100 (NOVOLO G FLEXPEN U-100 INSULIN) 100 unit/mL (3 mL) Take 8-12 units breakfast, 6 units lunch, and 10 units dinner 15 Pen 3 01/02/2022 08/19/2022 Discontinued Start: 06-28-2020 End: 04-30-2025 Insulin Aspart U-100 100 uni t/mL (3 mL) insulin pen Discontinued 7 U SC before meals June 28, 2020 2:08pm April 30, 2025 3:29pm 7 units AM, 6 units, 7 units dinner Start: 03-02-2020 End: 06-28-2020 Insulin Aspart U-100 100 uni t/mL (3 mL) insulin pen Discontinued 8 U SC before meals March 02, 2020 1:19pm June 28, 2020 2:10pm 12 units AM, 6 units, 10 units dinner Start: 01-17-2020 End: 03-02-2020 Insulin Aspart U-100 100 UNI TS/ML insulin pen Discontinued 8 U SC DAILY@07January 17, 2020 12:00am January 27, 2020 1:48pm Start: 01-17-2020 End: 01-27-2020 Insulin Aspart U-100 100 UNI TS/ML insulin pen Discontinued 6 U SC DAILY@1200 January 17, 2020 12:00am January 27, 2020 1:48pm Start: 01-17-2020 End: 03-02-2020 Insulin Aspart U-100 Discont inued 8 UNITS SC DAILY@07January 17, 2020 12:00am January 27, 2020 1:48pm Start: 01-17-2020 End: 01-27-2020 Insulin Aspart U-100 Discont inued 6 UNITS SC DAILY@1200 January 17, 2020 12:00am January 27, 2020 1:48pm Comment on above: Take 8-12 units omer kfast, 6 units lunch, and 10 units dinner Inject 8-12 Units fish bcutaneously daily with breakfast AND 6 Units daily with lunch AND 10 Units daily with dinner. Take 8 units with br eakfast, 3 units with lunch, and 6 units with dinner. Will be switching to Fiasp in 2023. Inject 8 Units subcu taneously daily with breakfast AND 3 Units daily with lunch AND 6 Units daily with dinner. Will switch from Novolog to Fiasp in 2023.. insulin glargine-yfgn (SEMGLEE) 100 unit/mL (3 mL) insulin pen (18 sources) Start: 01-06-20 insulin glargine-yfgn (SEMGLEE) 100 unit/mL (3 mL) insulin pen Inject 14 Units subcutaneously daily at bedtime. 15 mL 3 01/05/2025 Active losartan potassium 50 mg oral tablet (20 sources) Angiotensin 2 Receptor Shravan Start: 09-05-20 End: 04-01-20 take 1 tablet by mouth once daily losartan (COZAAR) 50 mg tablet Indications: Type 2 diabetes mellitus with stage 3b chronic kidney disease, with long-term current use of insulin (HCC) , Hypertensive kidney disease with stage 3b chronic kidney disease (HCC) , Hypertension goal BP (blood pressure) Take 1 tablet by mouth once daily. 90 tablet 1 04/02/2025 Active Comment on above: Take 1 tablet by crystal once daily. take 1 tablet by crystal th once daily 24 hr metoprolol succinate 100 mg extended release oral tablet (20 sources) beta-Adrenergic Shravan Start: 01-17-20 End: 04-01-20 take 1 tablet by mouth once daily metoprolol succinate ER (TOPROL XL) 100 mg Take 1 tablet by mouth once daily. 90 tablet 1 04/02/2025 Active Comment on above: Take 1 tablet by crystal once daily. propylene glycol 6 mg/ml ophthalmic solution (6 sources) Start: 06-28-20 take 0.6 drop(s) into the eye(s) once daily as needed Propylene Glycol (Systane Balance) 0.6 % drops Active 1 NMA OPHTHALMIC DAILY as needed for Dry Eyes June 28, 2020 12:00am Start: 06-28-2020 take 0.6 drop(s) int o the eye(s) once daily Propylene Glycol (Systane Balance) 0.6 % drops Active 1 DRP OPHTHALMIC DAILY June 28, 2020 12:00am traMADol hydrochloride 50 mg oral tablet (9 sources) Opioid Agonist Start: 02-26-2023 End: 03-05-2023 take 1 tablet by mouth twice daily traMADol (ULTRAM) 50 mg tablet Indications: Idiopathic gout of multiple sites, unspecified chronicity Take 1 tablet by mouth twice daily for 7 days. 14 tablet 0 02/26/2023 03/05/2023 Active Start: 10-04-2022 End: 10-08-2022 take 50-100 mg by mouth every eight hours as needed for pain Tramadol 50 mg tablet Discontinued 50 - 100 mg PO Q8H as needed for pain 26 02October 04, 2022 1:00am October 07, 2022 1:00am October 08, 2022 1:04am Start: 01-17-2020 End: 03-02-2020 take 1 tablet by mouth every six hours as needed for pain Tramadol 50 MG tablet Discontinued 50 mg PO EVERY 6 HOURS as needed for Pain Score January 17, 2020 12:00am March 02, 2020 1:21pm Comment on above: Take 1 tablet by crystal twice daily for 7 days. Completed/Discontinued Medications Medication Drug Class(es) Dates Sig (Normalized) Sig (Original) acetaminophen 500 mg oral tablet (12 sources) Start: 01-27-2020 End: 03-02-2020 Acetaminophen 500 MG tablet Discontinued 650 mg PO EVERY 8 HOURS NEEDED as needed for Pain Score January 27, 2020 12:00am March 02, 2020 1:17pm Start: 01-27-2020 End: 03-02-2020 take 2 tablets by mouth at bedtime Acetaminophen 500 MG tablet Discontinued 1000 mg PO AT BEDTIME January 27, 2020 12:00am March 02, 2020 1:17pm Start: 01-27-2020 End: 03-02-2020 take 650 mg by mouth every eight hours as needed Acetaminophen Discontinued 650 MG PO EVERY 8 HOURS NEEDED January 27, 2020 12:00am March 02, 2020 1:17pm Start: 01-27-2020 End: 03-02-2020 take 1000 mg by mouth at bedtime Acetaminophen Discontinued 1000 MG PO AT BEDTIME January 27, 2020 12:00am March 02, 2020 1:17pm acetaminophen 325 mg / oxyCODONE hydrochloride 5 mg oral tablet (3 sources) Opioid Agonist Start: 10-03-2022 End: 10-04-2022 Oxycodone-Acetaminophen (Percocet) 5-325 mg tablet Discontinued 1 {tbl} PO EVERY 6 HOURS as needed for pain 20 5 October 03, 2022 October 04, 2022 3:11pm [id number] 200 actuat albuterol 0.09 mg/actuat metered dose inhaler (16 sources) beta2-Adrene rgic Agonist Start: 02-19-2025 End: 05-14-2025 take 1-2 puff(s) by inhalation four times daily as needed for wheezing albuterol HFA (PROVENTIL HFA) 90 mcg/actuation inhaler Inhale 1-2 puffs as instructed four times a day as needed for wheezing/shortness of breath. 1 each 02/19/2025 05/14/2025 Discontinued Start: 01-17-2020 End: 03-02-2020 take 2.5 mg by inhalation every four hours as needed for wheezing Albuterol Sulfate 2.5 MG/3 ML solution for nebulization Discontinued 2.5 mg INHALATION EVERY 4 HOURS NEEDED as needed for Sob &/Or Wheezing January 17, 2020 12:00am March 02, 2020 1:17pm amiodarone hydrochloride 200 mg oral tablet (6 sources) Antiarrhythmic Start: 01-17-2020 End: 03-02-2020 take 1 tablet by mouth once daily Amiodarone 200 MG tablet Discontinued 200 mg PO DAILY January 17, 2020 12:00am March 02, 2020 1:18pm atenolol 25 mg oral tablet (6 sources) beta-Adrenergic Shravan Start: 04-28-2014 End: 05-12-2014 take 1 tablet by mouth once daily Atenolol 25 MG tablet Discontinued 25 mg PO DAILY April 28, 2014 12:00am May 12, 2014 12:03pm atorvastatin 40 mg oral tablet (12 sources) HMG-CoA Reductase Inhibitor Start: 03-02-2020 End: 09-22-2024 Atorvastatin 40 mg tablet Discontinued 20 mg PO AT BEDTIME March 02, 2020 1:17pm September 22, 2024 3:46pm Start: 03-02-2020 take 20 mg by mouth at bedtime Atorvastatin Active 20 MG PO AT BEDTIME March 02, 2020 1:17pm Start: 01-17-2020 End: 03-02-2020 take 1 tablet by mouth at bedtime Atorvastatin 40 MG tablet Discontinued 40 mg PO AT BEDTIME January 17, 2020 12:00am March 02, 2020 1:22pm benzonatate 100 mg oral capsule (10 sources) Non-narcotic Antitussive Start: 02-19-2025 End: 05-14-2025 take 100-200 mg by mouth every eight hours as needed benzonatate (TESSALON PERLE) 100 mg capsule Take 1-2 capsules by mouth three times a day as needed. 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 90 tablet 3 01/16/2025 01/19/2025 Discontinued (Discontinued by another Health Care Provider) Comment on above: Take 1 tablet by crystal th once daily. doxycycline hyclate 100 mg oral tablet (1 source) Tetracycline-class Drug Start: 01-09-2022 take 1 tablet by mouth twice daily doxycycline (VIBRA-TABS) 100 mg tablet Take 1 tablet by mouth twice daily. 20 tablet 0 01/09/2022 Active Comment on above: Take 1 tablet by crystal th twice daily. empagliflozin 10 mg oral tablet (8 sources) Sodium-Glucose Cotransporter 2 Inhibitor Start: 10-31-2023 End: 05-12-2024 take 1 tablet by mouth once daily at breakfast empagliflozin (JARDIANCE) 10 mg tablet Indications: Congestive heart failure, unspecified HF chronicity, unspecified heart failure type (HCC) Take 1 tablet by mouth daily with breakfast. 30 tablet 11 10/31/2023 05/12/2024 Discontinued (Side Effects) Comment on above: Take 1 tablet by crystal th daily with breakfast. fluticasone propionate 0.05 mg/actuat metered dose nasal spray (1 source) Corticosteroid Start: 01-05-2022 take 2 spray(s) by mouth once daily fluticasone (FLONASE) 50 mcg/actuation nasal spray Use 2 Sprays in each nostril once daily. Rinse mouth after use. 1 Each 0 01/05/2022 Active Comment on above: Use 2 Sprays in each nostril once daily. Rinse mouth after use. glimepiride 4 mg oral tablet (6 sources) Sulfonylurea Start: 04-28-2014 End: 05-12-2014 take 2 mg by mouth once daily Glimepiride 4 MG tablet Discontinued 2 mg PO DAILY April 28, 2014 12:00am May 12, 2014 12:05pm Start: 04-28-2014 End: 05-12-2014 take 2 mg by mouth once daily Glimepiride Discontinued 2 MG PO DAILY April 28, 2014 12:00am May 12, 2014 12:05pm 12 hr guaiFENesin 600 mg extended release oral tablet (6 sources) Start: 01-17-2020 End: 03-02-2020 take 1 tablet by mouth twice daily as needed for cough Guaifenesin 600 MG tablet extended release 12hr Discontinued 600 mg PO TWICE A DAY as needed for Cough January 17, 2020 12:00am March 02, 2020 1:18pm 3 ml insulin glargine 100 unt/ml pen injector (20 sources) Insulin Analog Start: 07-22-2023 End: 01-05-2025 insulin glargine (BASAGLAR KWIKPEN U-100 INSULIN) 100 unit/mL (3 mL) Inject 14 Units subcutaneously daily at bedtime. 15 mL 11 08/07/2024 01/05/2025 Discontinued Start: 07-22-2023 insulin glargi ne (BASAGLAR KWIKPEN U-100 INSULIN) 100 unit/mL (3 mL) Inject 14 Units subcutaneously daily at bedtime. 15 mL 11 07/22/2023 Active Start: 01-10-2023 End: 07-20-2023 insulin glargine (BASAGLAR K WIKPEN U-100 INSULIN) 100 unit/mL (3 mL) Inject 11 Units subcutaneously daily at bedtime. 15 mL 11 01/10/2023 07/20/2023 Discontinued Start: 01-09-2023 End: 01-10-2023 inject 1 [IU] by subcutaneous injection once daily at bedtime insulin glargine (BASAGLAR KWIKPEN U-100 INSULIN) 100 unit/mL (3 mL) Inject 1 Units subcutaneously daily at bedtime. 5 Each 11 01/09/2023 01/10/2023 Discontinued Start: 01-03-2021 End: 01-09-2023 insulin glargine (BASAGLAR K WIKPEN U-100 INSULIN) 100 unit/mL (3 mL) Inject 11 Units subcutaneously daily at bedtime. 5 Pen 11 02/06/2022 01/09/2023 Discontinued Start: 06-28-2020 Insulin Glargi ne 100 unit/mL (3 mL) insulin pen Active 9 U SC DAILY June 28, 2020 2:07pm Start: 03-02-2020 End: 06-28-2020 Insulin Glargine 100 unit/mL (3 mL) insulin pen Discontinued 11 U SC DAILY March 02, 2020 1:20pm June 28, 2020 2:10pm Start: 01-27-2020 End: 03-02-2020 Insulin Glargine 100 UNITS/M L insulin pen Discontinued 18 U SC DAILY January 27, 2020 12:00am March 02, 2020 1:22pm Start: 01-27-2020 End: 03-02-2020 Insulin Glargine Discontinue d 18 UNITS SC DAILY January 27, 2020 12:00am March 02, 2020 1:22pm Start: 01-03-2020 End: 01-27-2020 inject 11 [IU] by subcutaneous injection once daily Insulin Glargine 100 UNIT/ML insulin pen Discontinued 11 U SQ DAILY January 03, 2020 1:00am January 27, 2020 1:50pm Comment on above: Inject 11 Units subcutaneously daily at bedtime. Inject 1 Units subcu taneously daily at bedtime. Inject 14 Units subc utaneously daily at bedtime. 3 ml insulin lispro 100 unt/ml pen injector (20 sources) Insulin Analog Start: 023 inject 8-12 [IU] by subcutaneous injection once daily at breakfast, then inject 6 [IU] by subcutaneous injection once daily at lunch, then inject 10 [IU] by subcutaneous injection once daily at dinner insulin lispro (HUMALOG KWIKPEN INSULIN) 100 unit/mL Inject 8-12 Units subcutaneously daily with breakfast AND 6 Units daily with lunch AND 10 Units daily with dinner. 15 mL 3 09/13/2023 Active Start: 01-29-2020 End: 03-02-2020 Insulin Lispro 100 UNIT/ML i nsulin pen Discontinued 6 U SC DAILY@1200 January 29, 2020 12:00am March 02, 2020 1:20pm Start: 01-27-2020 End: 03-02-2020 Insulin Lispro 100 UNIT/ML i nsulin pen Discontinued 12 U SC DAILY@0730 January 27, 2020 12:00am March 02, 2020 1:20pm Start: 01-27-2020 End: 03-02-2020 Insulin Lispro 100 UNIT/ML i nsulin pen Discontinued 10 U SC DAILY@1700 January 27, 2020 12:00am March 02, 2020 1:20pm Comment on above: Inject 8-12 Units fish bcutaneously daily with breakfast AND 6 Units daily with lunch AND 10 Units daily with dinner. lidocaine 0.05 mg/mg medicated patch (6 sources) Antiarrhythmic, Amide Local Anesthetic Start: 01-17-20 End: 01-27-20 apply 1 dose transdermal route once daily Lidocaine 1 EACH adhesive patch,medicated Discontinued 1 NMA TP DAILY January 17, 2020 12:00am January 27, 2020 2:01pm magnesium oxide 400 mg oral tablet (6 sources) Start: 01-17-20 20 End: 03-02-20 20 take 1 tablet by mouth once daily Magnesium Oxide 400 MG tablet Discontinued 400 mg PO DAILY January 17, 2020 12:00am March 02, 2020 1:20pm mineral oil 0.03 mg/mg / petrolatum 0.94 mg/mg ophthalmic ointment (20 sources) Start: 01-17-20 20 End: 03-02-20 20 White Petrolatum-Mineral Oil 3.5 GM ointment Discontinued 1 APPLICATIO TOPICAL AT BEDTIME January 17, 2020 12:00am March 02, 2020 1:21pm Start: 01-17-2020 End: 03-02-2020 White Petrolatum-Mineral Oil Discontinued 1 APPLICATIO TOPICAL AT BEDTIME January 17, 2020 12:00am March 02, 2020 1:21pm white petrolatum -mineral oil (SYSTANE NIGHTTIME) 94-3 % ophthalmic ointment Use 1 application in both eyes daily at bedtime. Active white petrolatum -mineral oil (SYSTANE NIGHTTIME) 94-3 % ophthalmic ointment Use 1 application in both eyes daily at bedtime. 0 Active Comment on above: Use 1 application in both eyes daily at bedtime. [place]-3 Fatty Acids-Fish Oil (10 sources) Start: 0 End: 2 take 2 capsules by mouth once daily [place]-3 Fatty Acids-Fish Oil Discontinued 2 CAP PO DAILY June 28, 2020 1:09pm July 13, 2022 2:15pm Start: 06-28-2020 End: 07-13-2022 take 2 capsules by mouth once daily [place]-3 Fatty Acids-Fish Oil Discontinued 2 CAP PO DAILY June 28, 2020 2:09pm July 13, 2022 3:15pm Start: 06-28-2020 take 2 capsules by m outh once daily [place]-3 Fatty Acids-Fish Oil Active 2 CAP PO DAILY June 28, 2020 2:09pm Start: 01-03-2020 End: 06-28-2020 [place]-3 Fatty Acids-Fish Oil Discontinued 1 EACH PO DAILY January 03, 2020 12:00am June 28, 2020 1:10pm Start: 01-03-2020 End: 06-28-2020 [place]-3 Fatty Acids-Fish Oil Discontinued 1 EACH PO DAILY January 03, 2020 1:00am June 28, 2020 2:10pm [place]-3 Fatty Acids-Fish Oil 1 EACH capsule (1 source) Start: 01-03-2020 End: 06-28-2020 [place]-3 Fatty Acids-Fish Oil 1 EACH capsule Discontinued 1 NMA PO DAILY January 03, 2020 1:00am June 28, 2020 2:10pm [place]-3 Fatty Acids-Fish Oil 300-1,000 mg capsule (1 source) Start: 06-28-2020 End: 07-13-2022 [place]-3 Fatty Acids-Fish Oil 300-1,000 mg capsule Discontinued 2 NMA PO DAILY June 28, 2020 2:09pm July 13, 2022 3:15pm ondansetron 4 mg disintegrating oral tablet (13 sources) Serotonin-3 Receptor Antagonist Start: 02-19-2025 End: 05-14-2025 take 1 tablet by mouth every six hours as needed ondansetron orally disintegrating (ZOFRAN ODT) 4 mg disintegrating tablet Take 1 tablet by mouth every 6 hours as needed. 20 tablet 02/19/2025 05/14/2025 Discontinued Start: 10-03-2022 End: 04-30-2025 take 1 tablet by mouth every eight hours as needed for nausea and vomiting Ondansetron 4 mg tablet,disintegrating Discontinued 4 mg PO Q8H as needed for nausea and vomiting October 03, 2022 1:00am April 30, 2025 3:28pm oseltamivir 75 mg oral capsule (1 source) Neuraminidase Inhibitor Start: 01-02-2025 End: 01-07-2025 take 1 capsule by mouth twice daily Oseltamivir (Tamiflu) 75 mg capsule Discontinued 75 mg PO TWICE A DAY 10 January 02, 2025 1:00am January 06, 2025 1:00am January 07, 2025 1:10am polyethylene glycol 3350 [id number] mg powder for oral solution (6 sources) Osmotic Laxative Start: 01-17-2020 End: 03-02-2020 take 17 g by mouth once daily as needed for constipation Polyethylene Glycol 3350 17 GM packet Discontinued 17 g PO DAILY as needed for Constipation January 17, 2020 12:00am March 02, 2020 1:21pm prochlorperazine 5 mg oral tablet (12 sources) Phenothiazine Start: 06-28-2020 End: 07-13-2022 take 1 tablet by mouth twice daily as needed Prochlorperazine Maleate 5 mg tablet Discontinued 5 mg PO TWICE A DAY as needed June 28, 2020 12:00am July 13, 2022 3:16pm Start: 01-27-2020 End: 03-02-2020 take 1 tablet by mouth every six hours as needed for nausea Prochlorperazine Maleate 5 MG tablet Discontinued 5 mg PO EVERY 6 HOURS NEEDED as needed for Nausea January 27, 2020 2:22pm March 02, 2020 1:21pm rosuvastatin calcium 10 mg oral tablet (20 sources) HMG-CoA Reductase Inhibitor Start: 04-30-2025 End: 04-30-2025 take 5 mg by mouth once daily Rosuvastatin 10 mg tablet Discontinued 5 mg PO daily April 30, 2025 3:28pm April 30, 2025 4:03pm Start: 04-30-2025 take 1 tablet by crystal once daily Rosuvastatin 5 mg tablet Active 5 mg PO daily April 30, 2025 12:00am Start: 09-22-2024 End: 04-30-2025 take 1 tablet by mouth once daily Rosuvastatin 10 mg tablet Discontinued 10 mg PO daily September 22, 2024 1:00am April 30, 2025 3:29pm Start: 10-21-2021 End: 01-16-2025 take 1 tablet by mouth once daily rosuvastatin (CRESTOR) 5 mg tablet Indications: Mixed hyperlipidemia Take 1 tablet by mouth once daily. As directed 90 tablet 3 01/16/2025 Active Comment on above: Take 1 tablet by crystal once daily. As directed take 1 tablet by crystal once daily as directed sennosides, correction 8.6 mg oral tablet (6 sources) Start: 0 End: 0 Sennosides 8.6 MG tablet Discontinued 2 {tbl} PO DAILY January 17, 2020 12:00am March 02, 2020 1:21pm torsemide 10 mg oral tablet (6 sources) Loop Diuretic Start: 0 End: 0 take 1 tablet by mouth once daily Torsemide 10 MG tablet Discontinued 10 mg PO DAILY January 17, 2020 12:00am January 29, 2020 11:19am traZODone hydrochloride 50 mg oral tablet (16 sources) Serotonin Reuptake Inhibitor Start: 0 End: 3 take 1 tablet by mouth at bedtime Trazodone 50 MG tablet Discontinued 50 mg PO AT BEDTIME January 27, 2020 12:00am July 13, 2022 3:16pm Comment on above: Take 1 tablet by crystal th daily at bedtime. Problems Active Problems Problem Classification Problem Date Documented Date Episodic/Chronic Abdominal pain (20 sources) Abdominal pain; Translations: [Unspecified abdominal pain] Onset: 08-06-2007 Resolved: 12-26-2008 12-26-2008 Episodic Acute and unspecified renal failure (6 sources) [id number] renal failure; Translations: [Acute kidney failure, unspecified] 02-15-2021 Episodic Comment on above: due to ATN post-op. 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; Translations: [Cerebral infarction due to thrombosis of unspecified precerebral artery] 07-02-2023 Chronic Acute myocardial infarction (6 sources) Myocardial infarction; Translations: [ST elevation (STEMI) myocardial infarction of unspecified site] 03-02-2020 Chronic Comment on above: increased enzymes - late presentation of STEMI with ACS/ongoing pain Acute posthemorrhagic anemia (6 sources) Acute posthemorrhagic anemia; Translations: [Acute posthemorrhagic anemia] 06-28-2020 Episodic Comment on above: after CABG Cardiac dysrhythmias (20 sources) Paroxysmal atrial fibrillation; Translations: [Paroxysmal atrial fibrillation with rapid ventricular response] Onset: 09-14-2023 03-02-2020 Chronic Comment on above: on amiodarone Chronic kidney disease (20 sources) Chronic kidney disease stage 3B ; Translations: [Stage 3b chronic kidney disease] Onset: 01-20-2022 01-20-2022 Chronic Chronic kidney disease (1 source) Chronic kidney disease; Translations: [Hypertensive kidney disease with stage 3b chronic kidney disease (HCC)] Onset: 01-20-2022 Congestive heart failure; nonhypertensive (20 sources) Congestive heart failure; Translations: [Heart failure, unspecified] Onset: 09-14-2023 01-27-2020 Chronic Deficiency and other anemia (2 sources) Anemia; Translations: [Anemia, unspecified] 01-16-2025 Episodic Deficiency and other anemia (1 source) Anemia, unspecified; Translations: [Mild anemia] Onset: 05-14-2025 Episodic Diabetes mellitus with complications (20 sources) Insulin treated type 2 diabetes mellitus; Translations: [Type 2 diabetes mellitus with diabetic chronic kidney disease] Onset: 12-24-2008 Resolved: 08-25-2014 01-20-2022 Chronic Diabetes mellitus without complication (1 source) Diabetes mellitus without complication; Translations: [Type 2 diabetes mellitus with stage 3b chronic kidney disease, with long-term current use of insulin (HCC)] Onset: 01-20-2022 Disorders of lipid metabolism (20 sources) Pure hypercholesterolemia; Translations: [Pure hypercholesterolemia, unspecified] Onset: 10-20-2013 Resolved: 10-23-2015 03-21-2017 Chronic E Codes: Fall (3 sources) Fall on same level from slipping, tripping or stumbling ; Translations: [Fall on same level from slipping, tripping and stumbling without subsequent striking against object, initial encounter] 10-11-2022 Episodic Essential hypertension (20 sources) Hypertensive disorder; Translations: [Essential (primary) hypertension] Onset: 05-01-2016 05-01-2016 Chronic Fluid and electrolyte disorders (1 source) Mild dehydration; Translations: [Dehydration] 01-13-2025 Episodic Fracture of upper limb (6 sources) Closed fracture of upper end of humerus; Translations: [Unspecified fracture of upper end of left humerus, initial encounter for closed fracture] Episodic Genitourinary symptoms and ill-defined conditions (20 sources) Increased frequency of urination; Translations: [Frequency of micturition] Onset: 08-19-2009 Resolved: 02-22-2015 Episodic Gout and other crystal arthropathies (4 sources) Primary gout; 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, multiple sites] Chronic Heart valve disorders (6 sources) Non-rheumatic mitral regurgitation ; Translations: [Nonrheumatic mitral (valve) insufficiency] 03-02-2020 Chronic Comment on above: Moderate Hemorrhoids (6 sources) Internal hemorrhoids; Translations: [Other hemorrhoids] 03-02-2020 Episodic Hypertension with complications and secondary hypertension (20 sources) Hypertensive renal disease; Translations: [Hypertensive chronic kidney disease with stage 1 through stage 4 chronic kidney disease, or unspecified chronic kidney disease] Onset: 01-20-2022 01-20-2022 Chronic Malaise and fatigue (1 source) Asthenia; Translations: [Weakness] 01-13-2025 Episodic Nutritional deficiencies (5 sources) Vitamin D deficiency; Translations: [Vitamin D deficiency, unspecified] Onset: 05-13-2025 Chronic Occlusion or stenosis of precerebral arteries (6 sources) Right carotid artery stenosis; Translations: [Occlusion and stenosis of right carotid artery] 03-02-2020 Chronic Comment on above: 40 to 59% Other and ill-defined heart disease (6 sources) Left atrial enlargement; Translations: [Cardiomegaly] 03-02-2020 Chronic Other circulatory disease (6 sources) History of angioplasty; Translations: [Peripheral vascular angioplasty status] 03-02-2020 Episodic Comment on above: 1989 Other connective tissue disease (1 source) Swelling of hand; Translations: [Other specified soft tissue disorders] Episodic Other ear and sense organ disorders (1 source) Excessive cerumen in ear canal ; Translations: [Impacted cerumen, bilateral] 05-12-2024 Episodic Other lower respiratory disease (1 source) Cough; Translations: [Acute cough] 02-19-2025 Episodic Other nutritional; endocrine; and metabolic disorders (20 sources) Obese class I; Translations: [Obesity, unspecified] Onset: 01-01-2023 Chronic Other screening for suspected conditions (not mental disorders or infectious disease) (8 sources) Endometrium thickened; Translations: [Abnormal findings on diagnostic imaging of other specified body structures] Chronic Comment on above: emb done Other upper respiratory infections (1 source) Acute upper respiratory infection; Translations: [Acute upper respiratory infection, unspecified] 07-21-2023 Episodic Residual codes; unclassified (2 sources) Bilateral lower limb edema; Translations: [Localized edema] Episodic Residual codes; unclassified (1 source) Edema; Translations: [Edema, unspecified] 02-19-2025 Episodic Screening and history of mental health and substance abuse codes (2 sources) Encounter for screening for depression; Translations: [Encounter for screening examination for other mental health and behavioral disorders] Onset: 05-14-2025 Episodic Unclassified (1 source) Acute cough; Translations: [Acute cough] Onset: 02-19-2025 Urinary tract infections (1 source) Acute lower urinary tract infection; Translations: [Urinary tract infection, site not specified] Episodic Past or Other Problems Problem Classification Problem Date Documented Da te Episodic/Chronic Benign neoplasm of uterus (20 sources) Uterine leiomyoma; Translations: [Leiomyoma of uterus, unspecified] Onset: 11-04-2007 Resolved: 03-21-2017 03-21-2017 Episodic Conditions associated with dizziness or vertigo (20 sources) Benign paroxysmal positional vertigo; Translations: [Benign paroxysmal vertigo, unspecified ear] Onset: 12-26-2008 Resolved: 02-22-2015 03-02-2020 Episodic Coronary atherosclerosis and other heart disease (20 sources) Ischemic myocardial dysfunction; Translations: [Ischemic cardiomyopathy] Onset: 01-03-2020 Resolved: 02-11-2020 03-02-2020 Chronic Comment on above: 30% EF Diverticulosis and diverticulitis (20 sources) Diverticular disease; Translations: [Diverticulosis of intestine, part unspecified, without perforation or abscess without bleeding] Onset: 08-16-2012 Resolved: 02-22-2015 03-02-2020 Chronic Immunizations and screening for infectious disease (10 sources) Patient encounter status; Translations: [Encounter for immunization] Onset: 09-12-2024 08-23-2023 Episodic Influenza (2 sources) Influenza due to Influenza A virus; Translations: [Influenza due to other identified influenza virus with other respiratory manifestations] Onset: 01-30-2025 01-13-2025 Episodic Menopausal disorders (20 sources) Postmenopausal bleeding; Translations: [Postmenopausal bleeding] Onset: 08-19-2009 Resolved: 02-22-2015 01-11-2024 Chronic Mycoses (20 sources) Onychomycosis due to dermatophyte ; Translations: [Tinea unguium] Onset: 12-24-2008 Resolved: 02-22-2015 02-22-2015 Episodic Other aftercare (1 source) FPC (current) use of insulin; Translations: [Type 2 diabetes mellitus with stage 3b chronic kidney disease, with long-term current use of insulin (HCC)] Onset: 01-20-2022 Episodic Other and unspecified benign neoplasm (20 sources) Benign neoplasm of cerebral meninges; Translations: [Benign neoplasm of cerebral meninges] Onset: 12-26-2008 Resolved: 02-11-2020 02-11-2020 Chronic Other and unspecified benign neoplasm (20 sources) Neoplasm of meninges; Translations: [Benign neoplasm of meninges, unspecified] Onset: 10-20-2013 Resolved: 02-22-2015 02-22-2015 Chronic Other bone disease and musculoskeletal deformities (20 sources) Disorder of skeletal system; Translations: [Disorder of bone, unspecified] Onset: 05-20-2007 12-26-2008 Episodic Other circulatory disease (20 sources) History of cerebrovascular accident; Translations: [Personal history of transient ischemic attack (TIA), and cerebral infarction without residual deficits] Onset: 08-25-2014 01-09-2020 Episodic Other connective tissue disease (20 sources) H/O: gout; Translations: [Personal history of other diseases of the musculoskeletal system and connective tissue] Onset: 02-25-2013 03-21-2017 Episodic Other female genital disorders (20 sources) Mucous polyp of cervix; Translations: [Polyp of cervix uteri] Onset: 11-04-2007 Resolved: 02-22-2015 02-22-2015 Episodic Other gastrointestinal disorders (20 sources) Diarrhea; Translations: [Diarrhea, unspecified] Onset: 04-28-2019 04-28-2019 Episodic Other non-epithelial cancer of skin (20 sources) Basal cell carcinoma of upper extremity; Translations: [Basal cell carcinoma of skin of unspecified upper limb, including shoulder] Onset: 05-25-2016 Resolved: 03-21-2017 11-01-2021 Episodic Other nutritional; endocrine; and metabolic disorders (20 sources) Hyperuricemia; Translations: [Hyperuricemia without signs of inflammatory arthritis and tophaceous disease] Onset: 01-05-2018 01-05-2018 Episodic Other nutritional; endocrine; and metabolic disorders (1 source) Hyperuricemia without signs of inflammatory arthritis and tophaceous disease; Translations: [Hyperuricemia] Onset: 01-05-2018 Episodic Other screening for suspected conditions (not mental disorders or infectious disease) (20 sources) Mammography abnormal; Translations: [Other abnormal and inconclusive findings on diagnostic imaging of breast] Onset: 08-19-2013 Resolved: 02-22-2015 02-22-2015 Episodic Otitis media and related conditions (20 sources) Dysfunction of eustachian tube; Translations: [Unspecified Eustachian tube disorder, unspecified ear] Onset: 08-30-2009 Resolved: 02-22-2015 02-22-2015 Episodic Pleurisy; pneumothorax; pulmonary collapse (2 sources) Pleural effusion; Translations: [Pleural effusion, not elsewhere classified] Onset: 02-19-2025 02-19-2025 Episodic Spondylosis; intervertebral disc disorders; other back problems (20 sources) Cervico-occipital neuralgia; Translations: [Occipital neuralgia] Onset: 02-25-2013 Resolved: 02-22-2015 02-22-2015 Episodic Viral infection (2 sources) Viral disease; Translations: [Viral infection, unspecified] Onset: 02-19-2025 02-19-2025 Episodic Results Test Name Value Interpretation Reference Range Facility Bacteria Ur Culton 5 Bacteria identified Cx Nom (U) CULTURE, URINE: Mixed microbiota, including predominantly: ORGANISM ID: 1 50,000-<100,000 CFU/ml Streptococcus anginosus No susceptibility testing done. Normal [facility] Comment on above: Performed By: #### 6 30-4 #### [facility] CLIA [id number] [address] [place] [address] [place] CNOVon 06-02-2025 CNOV Office Visit (WOUCA) CONCHA WOODWARD I ([id number]) 1935 F Date Time Provider Department 06/02/25 10:00 AM CLEMENT CORTES During your visit today, we recorded the following information about you: Temperature Pulse Respiration Blood pressure 97 degrees 72/minute 16/minute 124/66 Weight 74.9 kg Clement Cortes APRN.[employer] 06/02/2025 10:21 AM Signed [facility] Subjective Concha Brian Woodward is a 89 year old female. [...] other causes of hematuria. and Recording using [employer] software for draft documentation of the visit was discussed with the patient/authorized corporate sales representative; all questions welcomed and answered. Patient/authorized corporate sales representative agreed to proceed MDM Procedures Allergies As of Date: 06/02/2025 Noted Allergy Reaction BACTRIM (SULFAMETHOXAZOLE-TRIME TH*06/10/2008 11 - Vomiting CODEINE 08/31/2005 11 - Vomiting FARXIGA (DAPAGLIFLOZIN) 09/12/2024 8 - GI Upset PREDNISONE 09/05/2012 11 - Vomiting STATINS (WWAFTGY-JBW-CHI REDUCTAS*05/25/2009 5 - Intolerance ULTRAM (TRAMADOL HCL) 01/17/2013 11 - Vomiting Date Reviewed: 05/14/2025 Reviewed by: Ishmael Davis APRN.NUCLEAR MEDICINE TECH - Fully Assessed Reason for Visit: Pelvic Pain [282] Cmt: pressure x 3 days Primary Visit Diagnosis:Pelvic pain [R10.2] Other Visit Diagnosis:Hematuria, unspecified type [R31.9] Order(s):UA DIP, URINE (POC) [[id number]] Order #: [id number]. #:[id number] BACTERIAL CULTURE, URINE [SQURCUL] Order #: [id number]. #:[id number] cephALEXin (KEFLEX) 250 mg capsuleTake 1 capsule by mouth two times a day for 5 days.Disp: 10 capsuleRfl: 0 Prescriptions as of 06/02/2025 - cephALEXin (KEFLEX) 250 mg capsule Take 1 capsule by mouth two times a day for 5 days. - amLODIPine (NORVASC) 10 mg tablet Take [...] DM - Controlled E11.65 Insulin: Yes - allopurinol (ZYLOPRIM) 100 mg tablet Take [...] 3 times daily Insulin Yes - Insulin [place], Disposable, (BD ULTRA-FINE JOHN PEN NEEDLE) 32 [...] at bedtime. - RESTASIS 0.05 % ophthalmic e (more content not included)... Normal [facility] UA DIP, URINE (POC)on 2024 BILIRUBIN UA (POCT) Negative Negative [facility] CLARITY UA (POCT) Clear [facility] COLOR UA (POCT) Yellow [facility] GLUCOSE UA (POCT) 100 mg/dL Abnormal Negative [facility] Hemoglobin Ql (U) Trace-intact Abnormal Negative [facility] Interpretation and review of laboratory results Abnormal [facility] KETONE UA (POCT) Negative Negative mg/dL [facility] LEUKOCYTES UA (POCT) Negative Negative [facility] NITRITE UA (POCT) Negative Negative [facility] PH UA (POCT) 5.5 4.5 - 8.0 [facility] Protein Ql (U) >=300 Abnormal Negative mg/dL [facility] SPECIFIC GRAVITY UA (POCT) 1.025 1.005 - 1.030 [facility] UROBILINOGEN UA (POCT) 0.2 Tricia l E.U./dL [facility] Location:[address], [place], [place], [id number] [place] [address] POINT OF CARE [facility] CNOVon 05-14-2025 CNOV Office Visit (INTMWS ) CONCHA WOODWARD I ([id number]) 1935 F Date Time Provider Department 05/14/25 1:40 PM ISHMAEL DAVIS INTMWS During your visit today, we recorded the following information about you: Pulse Blood pressure Weight Height 69/minute 152/77 74.8 kg 1.565 m Ishmael Davis APRN.NUCLEAR MEDICINE TECH 05/14/2025 2:06 PM Addendum Latest Ref Rng 05/13/2025 Protein, Total 6.3 [...] 8 - 15 mmol/L 14 eGFR >=60 mL/min/1.73m? 20 (L) WBC 3.70 - 11.00 k/uL [...] review all the medicines you take, even cmpr-yww-ttymqbw medicines. As you get older, the way [...] apply if you have certain medical conditions. Ishmael Davis APRN.NUCLEAR MEDICINE TECH 05/29/2025 4:17 PM Addendum Concha Woodward is a 89 year old [...] (last eye exam 1/2 months ago) Current Prov (more content not included)... Normal [facility] 25(OH)D3 [facility] 2024 25-hydroxyvitamin D3 [Mass/Vol] 36.0 ng/mL Normal 31.0-80.0 [facility] Comment on above: Order Comment: Speci men Type: BLOOD SPECIMENOrdering Facility: [facility] Address: [address] [place] [address] Result Comment: Clas sification of 25 [place] Vitamin D status: Deficiency/Insufficiency: < or = 30 ng/ml. Sufficiency/Optimal Levels: 31-80 ng/mL Toxicity: > 100 ng/mL. Test performed by chemiluminescent immunoassay. Performed By: #### 9 5941-1 #### [facility] CLIA [id number] [address] [place] [address] [place] ALBUMIN/CREATININE RATIO, UR INEon 05-13-2025 Albumin DL <= 20 mg/L (U) [Mass/Vol] 1451.0 mg/L Normal [facility] Comment on above: Order Comment: Speci men Type: URINE SPECIMENOrdering Facility: [facility] Address: [address] [place] [address] Performed By: #### U ACR ####[facility] [id number] [place] [address] [place] Albumin/Creatinine (U) [Mass ratio] 1742 mg/g High <30 [facility] Comment on above: Order Comment: Speci men Type: URINE SPECIMENOrdering Facility: [facility] Address: [address] [place] [address] Result Comment: Adul t Male and Female Nephrotic Criteria: <30 mg/g is considered normal to mildly increased 30-300 mg/g is considered moderately increased >300 mg/g is considered severely increased KDIGO. (2013). KDIGO 2012 Clinical Practice Guideline for the Evaluation and Management of Chronic Kidney Disease. Official Journal of the International Society of Nephrology, 3(1), 1-150. Performed By: #### U ACR ####[facility] [id number] [place] [address] [place] Creatinine (U) [Mass/Vol] 83.3 mg/dL Normal 20.0-300.0 [facility] Comment on above: Order Comment: Speci men Type: URINE SPECIMENOrdering Facility: [facility] Address: [address] [place] [address] Performed By: #### U ACR ####[facility] [id number] [place] [address] [place] CBC panel Auto (Bld)on 05-13 Erythrocyte distribution width (RBC) [Ratio] 14.0 % Normal 11.5-15.0 [facility] Comment on above: Order Comment: Speci men Type: BLOOD SPECIMENOrdering Facility: [facility] Address: [address] [place] [address] Performed By: #### 9 5941-1 #### [facility] CLIA [id number] [address] [place] [address] [place] Hematocrit (Bld) [Volume fraction] 32.0 % Low 36.0-46.0 [facility] Comment on above: Order Comment: Speci men Type: BLOOD SPECIMENOrdering Facility: [facility] Address: [address] [place] [address] Performed By: #### 9 5941-1 #### [facility] CLIA [id number] [address] [place] [address] [place] Hemoglobin (Bld) [Mass/Vol] 10.6 g/dL Low 11.5-15.5 [facility] Comment on above: Order Comment: Speci men Type: BLOOD SPECIMENOrdering Facility: [facility] Address: [address] [place] [address] Performed By: #### 9 5941-1 #### [facility] CLIA [id number] [address] [place] [address] [place] MCH (RBC) [Entitic mass] 30.3 pg Normal 26.0-34.0 [facility] Comment on above: Order Comment: Speci men Type: BLOOD SPECIMENOrdering Facility: [facility] Address: [address] [place] [address] Performed By: #### 9 5941-1 #### [facility] CLIA [id number] [address] [place] [address] [place] MCHC (RBC) [Mass/Vol] 33.1 g/dL Normal 30.5-36.[address] [facility] Comment on above: Order Comment: Speci men Type: BLOOD SPECIMENOrdering Facility: [facility] Address: [address] [place] [address] Performed By: #### 9 5941-1 #### [facility] CLIA [id number] [address] [place] [address] [place] MCV (RBC) [Entitic vol] 91.4 fL Normal 80.0-100.0 C [facility] Comment on above: Order Comment: Speci men Type: BLOOD SPECIMENOrdering Facility: [facility] Address: [address] [place] [address] Performed By: #### 9 5941-1 #### [facility] CLIA [id number] [address] [place] [address] [place] Nucleated RBC (Bld) [#/Vol] 10*3/uL Normal <0.01 [facility] Comment on above: Order Comment: Speci men Type: BLOOD SPECIMENOrdering Facility: [facility] Address: [address] [place] [address] Performed By: #### 9 5941-1 #### [facility] CLIA [id number] [address] [place] [address] [place] Platelet mean volume (Bld) [Entitic vol] 11.5 fL Normal 9.0-12.7 [facility] Comment on above: Order Comment: Speci men Type: BLOOD SPECIMENOrdering Facility: [facility] Address: [address] [place] [address] Performed By: #### 9 5941-1 #### [facility] CLIA [id number] [address] [place] [address] [place] Platelets (Bld) [#/Vol] 255 10*3/uL Normal 150-400 [facility] Comment on above: Order Comment: Speci men Type: BLOOD SPECIMENOrdering Facility: [facility] Address: [address] [place] [address] Performed By: #### 9 5941-1 #### [facility] CLIA [id number] [address] [place] [address] [place] RBC (Bld) [#/Vol] 3.50 10*6/uL Low 3.90-5.[address] [facility] Comment on above: Order Comment: Speci men Type: BLOOD SPECIMENOrdering Facility: [facility] Address: [address] [place] [address] Performed By: #### 9 5941-1 #### [facility] CLIA [id number] [address] [place] [address] [place] WBC (Bld) [#/Vol] 8.07 10*3/uL Normal 3.70-11.[address] [facility] Comment on above: Order Comment: Speci men Type: BLOOD SPECIMENOrdering Facility: [facility] Address: [address] [place] [address] Performed By: #### 9 5941-1 #### [facility] CLIA [id number] [address] [place] [address] [place] Comprehensive metabolic 2000 panelon 05-13-2025 Albumin [Mass/Vol] 4.2 g/dL Normal 3.9-4.9 [facility] Comment on above: Order Comment: Speci men Type: BLOOD SPECIMENOrdering Facility: [facility] Address: [address] [place] [address] Performed By: #### 9 5941-1 #### [facility] CLIA [id number] [address] [place] [address] [place] ALP [Catalytic activity/Vol] 92 U/L Normal 34-123 [facility] Comment on above: Order Comment: Speci men Type: BLOOD SPECIMENOrdering Facility: [facility] Address: [address] [place] [address] Performed By: #### 9 5941-1 #### [facility] CLIA [id number] [address] [place] [address] [place] ALT [Catalytic activity/Vol] 16 U/L Normal 7-38 [facility] Comment on above: Order Comment: Speci men Type: BLOOD SPECIMENOrdering Facility: [facility] Address: [address] [place] [address] Performed By: #### 9 5941-1 #### [facility] CLIA [id number] [address] [place] [address] [place] Anion gap [Moles/Vol] 14 mmol/L Normal 8-[address] [facility] Comment on above: Order Comment: Speci men Type: BLOOD SPECIMENOrdering Facility: [facility] Address: [address] [place] [address] Performed By: #### 9 5941-1 #### [facility] CLIA [id number] [address] [place] [address] [place] AST [Catalytic activity/Vol] 15 U/L Normal 13-35 [facility] Comment on above: Order Comment: Speci men Type: BLOOD SPECIMENOrdering Facility: [facility] Address: [address] [place] [address] Performed By: #### 9 5941-1 #### [facility] CLIA [id number] [address] [place] [address] [place] Bilirubin [Mass/Vol] 0.4 mg/dL Normal 0.2-1.3 [facility] Comment on above: Order Comment: Speci men Type: BLOOD SPECIMENOrdering Facility: [facility] Address: [address] [place] [address] Performed By: #### 9 5941-1 #### [facility] CLIA [id number] [address] [place] [address] [place] Calcium [Mass/Vol] 9.7 mg/dL Normal 8.5-10.2 [facility] Comment on above: Order Comment: Speci men Type: BLOOD SPECIMENOrdering Facility: [facility] Address: [address] [place] [address] Performed By: #### 9 5941-1 #### [facility] CLIA [id number] [address] [place] [address] [place] Chloride [Moles/Vol] 106 mmol/L Normal 98-107 [facility] Comment on above: Order Comment: Speci men Type: BLOOD SPECIMENOrdering Facility: [facility] Address: [address] [place] [address] Performed By: #### 9 5941-1 #### [facility] CLIA [id number] [address] [place] [address] [place] CO2 [Moles/Vol] 18 mmol/L Low 22-30 [facility] Comment on above: Order Comment: Speci men Type: BLOOD SPECIMENOrdering Facility: [facility] Address: [address] [place] [address] Performed By: #### 9 5941-1 #### [facility] IA [id number] [address] [place] [address] [place] Creatinine [Mass/Vol] 2.29 mg/dL High 0.58-0.[address] [facility] Comment on above: Order Comment: Speci men Type: BLOOD SPECIMENOrdering Facility: [facility] Address: [address] [place] [address] Performed By: #### 9 5941-1 #### [facility] IA [id number] [address] [place] [address] [place] Creatinine and Glomerular filtration rate.predicted panel (S/P/Bld) 20 mL/min/1.73m??? Low >=60 [facility] Comment on above: Order Comment: Speci men Type: BLOOD SPECIMENOrdering Facility: [facility] Address: [address] [place] [address] Result Comment: Kathie mated Glomerular Filtration Rate (eGFR) is calculated using the 2020 CKD-EPI creatinine equation. This equation utilizes serum creatinine, sex, and age as parameters. The creatinine assay has traceable calibration to isotope dilution-mass spectrometry. Refer to KDIGO guidelines for clinical interpretation. In patients with unstable renal function, e.g. those with acute kidney injury, the eGFR may not accurately reflect actual GFR. Performed By: #### 9 5941-1 #### [facility] IA [id number] [address] [place] [address] [place] Glucose [Mass/Vol] 125 mg/dL High 74-99 [facility] Comment on above: Order Comment: Speci men Type: BLOOD SPECIMENOrdering Facility: [facility] Address: [address] [place] [address] Result Comment: The [place] Diabetes Association (ADA) provides guidance for cutoff values for fasting glucose and random glucose. The ADA defines fasting as no caloric intake for at least 8 hours. Fasting plasma glucose results between 100 to 125 mg/dL indicate increased risk for diabetes (prediabetes). Fasting plasma glucose results greater than or equal to 126 mg/dL meet the criteria for diagnosis of diabetes. In the absence of unequivocal hyperglycemia, results should be confirmed by repeat testing. In a patient with classic symptoms of hyperglycemia or hyperglycemic crisis, random plasma glucose results greater than or equal to 200 mg/dL meet the criteria for diagnosis of diabetes. Reference: Standards of Medical Care in Diabetes 2016, [place] Diabetes Association. Diabetes Care. 2016.39(Suppl 1). Performed By: #### 9 5941-1 #### [facility] CLIA [id number] [address] [place] [address] [place] Potassium [Moles/Vol] 4.6 mmol/L Normal 3.7-5.[address] [facility] Comment on above: Order Comment: Speci men Type: BLOOD SPECIMENOrdering Facility: [facility] Address: [address] [place] [address] Performed By: #### 9 5941-1 #### [facility] CLIA [id number] [address] [place] [address] [place] Protein [Mass/Vol] 7.4 g/dL Normal 6.3-8.0 [facility] Comment on above: Order Comment: Speci men Type: BLOOD SPECIMENOrdering Facility: [facility] Address: [address] [place] [address] Performed By: #### 9 5941-1 #### [facility] CLIA [id number] [address] [place] [address] [place] Sodium [Moles/Vol] 138 mmol/L Normal 136-144 [facility] Comment on above: Order Comment: Speci men Type: BLOOD SPECIMENOrdering Facility: [facility] Address: [address] [place] [address] Performed By: #### 9 5941-1 #### [facility] CLIA [id number] [address] [place] [address] [place] Urea nitrogen [Mass/Vol] 56 mg/dL High 7-21 [facility] Comment on above: Order Comment: Speci men Type: BLOOD SPECIMENOrdering Facility: [facility] Address: [address] [place] [address] Performed By: #### 9 5941-1 #### [facility] CLIA [id number] [address] [place] [address] [place] HbA1c (Bld)on 05-13-2025 Average glucose Estimated from glycated hemoglobin (Bld) [Mass/Vol] 166 mg/dL Normal [facility] Comment on above: Order Comment: Speci men Type: BLOOD SPECIMENOrdering Facility: [facility] Address: [address] [place] [address] Result Comment: eAG: (Estimated average glucose) is a calculated value from HgbA1c and is corporate sales representative of the average blood glucose level in the last 2-3 month period. Performed By: #### 9 5941-1 #### [facility] CLIA [id number] [address] [place] [address] [place] HbA1c (Bld) [Mass fraction] 7.4 % High 4.3-5.6 [facility] Comment on above: Order Comment: Speci men Type: BLOOD SPECIMENOrdering Facility: [facility] Address: [address] [place] [address] Result Comment: [place] Diabetes Association guidelines indicate that patients with HgbA1c in the range 5.7-6.4% are at increased risk for development of diabetes, and intervention by lifestyle modification may be beneficial. HgbA1c greater or equal to 6.5% is considered diagnostic of diabetes. Performed By: #### 9 5941-1 #### [facility] CLIA [id number] [address] [place] [address] [place] Lipid 1996 panelon 5 Cholesterol [Mass/Vol] 138 mg/dL Normal <200 [facility] Comment on above: Order Comment: Speci men Type: BLOOD SPECIMENOrdering Facility: [facility] Address: [address] [place] [address] Result Comment: <200 mg/dL, Desirable 200-239 mg/dL, Borderline high >239 mg/dL, High Performed By: #### 9 5941-1 #### [facility] CLIA [id number] [address] [place] [address] [place] Cholesterol in HDL [Mass/Vol] 51 mg/dL Normal >39 [facility] Comment on above: Order Comment: Speci men Type: BLOOD SPECIMENOrdering Facility: [facility] Address: [address] [place] [address] Result Comment: 40-5 9 mg/dL, Acceptable >59 mg/dL, High: Negative risk factor for coronary heart disease <40 mg/dL, Low: Positive risk factor for coronary heart disease Performed By: #### 9 5941-1 #### [facility] CLIA [id number] [address] [place] [address] [place] Cholesterol in LDL [Mass/Vol] 67 mg/dL Normal <100 [facility] Comment on above: Order Comment: Speci men Type: BLOOD SPECIMENOrdering Facility: [facility] Address: [address] [place] [address] Result Comment: <100 mg/dL, Optimal 100-129 mg/dL, Near optimal/above optimal 130-159 mg/dL, Borderline high 160-189 mg/dL, High >189 mg/dL, Very high Secondary prevention optimal LDL Cholesterol levels are recommended to be <70 mg/dL LDL cholesterol is calculated using the Stafford-NIH equation. Performed By: #### 9 5941-1 #### [facility] CLIA [id number] [address] [place] [address] [place] Cholesterol in LDL/Cholesterol in HDL [Mass ratio] 1.31 {ratio} Normal <2.54 [facility] Comment on above: Order Comment: Luis Armando karime Type: BLOOD SPECIMENOrdering Facility: [facility] Address: [address] [place] [address] Result Comment: Earnest stuart: 1. National Cholesterol Education Program ATP III Guideline At-A-Glance Quick Desk Reference: National Heart, Lung, [facility]. National Institutes of Health. 2001: NIH Publication No. 01-3305. 2. An International Atherosclerosis Society position paper: global recommendations for the management of dyslipidemia: executive summary, Atherosclerosis. 2014: 232(2):410-413. Performed By: #### 9 5941-1 #### [facility] CLIA [id number] [address] [place] [address] [place] Cholesterol in VLDL [Mass/Vol] 16 mg/dL Normal <30 [facility] Comment on above: Order Comment: Luis Armando schaffer Type: BLOOD SPECIMENOrdering Facility: [facility] Address: [address] [place] [address] Performed By: #### 9 5941-1 #### [facility] CLIA [id number] [address] [place] [address] [place] Cholesterol non HDL [Mass/Vol] 87 mg/dL Normal <130 [facility] Comment on above: Order Comment: Luis Armando schaffer Type: BLOOD SPECIMENOrdering Facility: [facility] Address: [address] [place] [address] Result Comment: <130 mg/dL, Optimal 130-159 mg/dL, Near optimal/above optimal 160-189 mg/dL, Borderline high 190-219 mg/dL, High >219 mg/dL, Very high Secondary prevention optimal non HDL Cholesterol levels are recommended to be <100 mg/dL Performed By: #### 9 5941-1 #### [facility] CLIA [id number] [address] [place] [address] [place] Cholesterol.total/Tanya sterol in HDL [Mass ratio] 2.71 {ratio} Normal <5.10 [facility] Comment on above: Order Comment: Priscillai men Type: BLOOD SPECIMENOrdering Facility: [facility] Address: [address] [place] [address] Performed By: #### 9 5941-1 #### [facility] CLIA [id number] [address] [place] [address] [place] FASTING TIME 9 hrs Normal [facility] Comment on above: Order Comment: Speci men Type: BLOOD SPECIMENOrdering Facility: [facility] Address: [address] [place] [address] Performed By: #### 9 5941-1 #### [facility] CLIA [id number] [address] [place] [address] [place] Triglyceride [Mass/Vol] 110 mg/dL Normal <150 [facility] Comment on above: Order Comment: Speci men Type: BLOOD SPECIMENOrdering Facility: [facility] Address: [address] [place] [address] Result Comment: <150 mg/dL, Normal 150-199 mg/dL, Borderline high 200-499 mg/dL, High >499 mg/dL, Very high Performed By: #### 9 5941-1 #### [facility] CLIA [id number] [address] [place] [address] [place] Urate SerPl-mCncon 5 Urate [Mass/Vol] 6.1 mg/dL Normal 2.5-6.6 [facility] Comment on above: Order Comment: Speci men Type: BLOOD SPECIMENOrdering Facility: [facility] Address: [address] [place] [address] Performed By: #### 9 5941-1 #### [facility] CLIA [id number] [address] [place] [address] [place] Cardiology Visit Reporton Cardiology Visit Report [facility] [address] [place], [place] [address] OFFICE VISIT Date of Service: 04/30/25 MR#: [id number] Acct: [id number] Name: CONCHA WOODWARD Rep #: [id number] : 1935 Provider: RANDY Silverio Age/Sex: 89/F Location: [facility] Status: Signed HPI HPI History of Present Illness Details: Concha Woodward is an 89-year-old female that presents here today for a cardiovascular follow-up. She was last to see us in the office in 2001. She has a history of coronary artery disease requiring bypass surgery. On January 09, 2020 she underwent a four-vessel bypass at [facility]. (GHOSH to diagonal sequenced to LAD, SVG to OM sequenced to RPL). Patient was found to have an EF of around 30% when she had presented with FL. This has since resolved. She has CKD and her lisinopril was discontinued due to rise in creatinine. She does not have any worsening SOB, orthopnea. She does not have any problems with her ADLS. She does go to [employer]. She does go three times a week for 30 minutes, She does not have any chest pain. She does not palpitations. She does not have any edema. Intake Vital Signs 09/22/24 14:44 01/05/25 11:10 04/30/25 15:26 04/30/25 15:35 Height 5 ft 3 in 5 ft 3 in 5 ft 3 in Weight: 164 lb BMI 29.0 BP 183/74 H 174/74 H Blood Pressure Location Lt brachial Lt brachial Position Sitting Sitting Respiration 16 Pulse 77 Pulse Source Monitor Intake Visit Reasons: 6 M Landman Required: No Accompanied by: Daughter Allergies codeine Adverse Reaction (Verified 04/30/25 15:26) Nausea/Vom/Diarrhea morphine Adverse Reaction (Verified 04/30/25 15:26) Nausea/Vom/Diarrhea Medications ???Medication ???Instructions ???Recorded ???Confirmed ???Type allopurinol 100 mg tablet 100 mg PO DAILYCM gout 04/28/14 History aspirin 81 mg chewable tablet 81 mg PO DAILY heart 01/17/20 06/2 04/29 History calcium carbonate-vitamin D3 600 1 ea PO DAILY bones 01/17/2004/30 History mg-125 unit tablet metoprolol succinate 100 mg 100 mg PO DAILY bp 01/17/20 History tablet,extended release 24 hr insulin glargine 100 unit/mL (3 9 unit subcut DAILY 06/28/2004/30 History mL) subcutaneous pen propylene glycol 0.6 % eye drops 1 drp ophthalmic (eye) DAILY PRN 0 06/28/20 04/30/25 History (Systane Balance) Dry Eyes losartan 50 mg tablet 50 mg PO QDAY 09/22/24 04/30/25 Hi story amlodipine 10 mg tablet 10 mg PO QDAY 04/30/25 04/30/25 Hi story insulin aspart U-100 100 unit/mL 7 unit subcut QAC dm 04/30/2504/06 History (3 mL) subcutaneous pen rosuvastatin 5 mg tablet 5 mg PO QDAY 04/30/25 04/30/25 His tory Ejection fraction %: 50 Have you fallen in the past year?: No PFSH Medical History Atherosclerosis of coronary artery of [place] heart without angina pectoris Bilateral renal cysts STEMI (ST elevation myocardial infarction) Acute renal failure superimposed on stage 3 chronic kidney disease Paroxysmal atrial fibrillation with RVR Carotid stenosis, right Decubitus ulcer, stage II Thrombocytopenia Acute blood loss anemia Chronic renal failure, stage 3 (moderate) Benign paroxysmal positional vertigo Mild atrial enlargement, left Nonrheumatic mitral valve regurgitation Internal hemorrhoids Diverticulosis Ischemic cardiomyopathy Hypertension Diabetes Physical debility Constipation due to pain medication Gout Basal ganglia infarction Intracranial meningioma Type II diabetes mellitus Benign hypertension Surgical History History of cholecystectomy History of coronary artery bypass graft H/O angioplasty History of left heart catheterization tubal Family History Aunt Breast cancer Mother Heart disease Father Heart disease Social History number of children: 2 current occupational status: retired Smoking Status: Former smoker alcohol intake: never substance use type: does not use diet: diabetic caffeine: Yes Type: coffee Number of servings: 1 seatbelt use: always do you feel safe at home: Yes additional social history: 2 children adopted ROS Const Const: Positive for fatigue; Negative for weakness Eyes Eyes: Negative for change in vision ENT ENT: Negative for dizziness or balance problems Cardio Chest Pain: No Palpitations: No Edema: Bilateral (occasional) Resp Respiratory: Negative for SOB with activity, SOB at rest or SOB orthopnea SOB lying down GI GI: Negative nausea or heartburn Musc Musc: Negative for balance problems Neuro (more content not included)... Normal [facility] 04-21-2025 [facility] Telephone (INTMWS) CONCHA WOODWARD I ([id number]) 1935 F Date Time Provider Department 04/21/25 ANJU PEARCE INTMWS During your visit today, we recorded the following information about you: Esthela Linder RN 04/21/2025 9:58 AM Signed Pt called in and reports she takes 4 medications in the morning, but she only has 3 bottles. She was wanting to know if I could help her figure out the one she was missing. She was missing the Amlodipine. I let her know she just needs to call her pharmacy as she has refills available. Esthela Linder RN Allergies As of Date: 04/21/2025 Noted Allergy Reaction BACTRIM (SULFAMETHOXAZOLE-TRIME TH*06/10/2008 11 - Vomiting CODEINE 08/31/2005 11 - Vomiting FARXIGA (DAPAGLIFLOZIN) 09/12/2024 8 - GI Upset PREDNISONE 09/05/2012 11 - Vomiting STATINS ([id number] REDUCTAS*05/25/2009 5 - Intolerance ULTRAM (TRAMADOL HCL) 01/17/2013 11 - Vomiting Date Reviewed: 02/19/2025 Reviewed by: Susana Harry LPN - Fully Assessed Reason for Visit: Patient Question [0807] Prescriptions as of 04/21/2025 - losartan (COZAAR) 50 mg tablet Take [...] three times a day as needed. - amLODIPine (NORVASC) 10 mg tablet Take [...] 3 times daily Insulin Yes - Insulin [place], Disposable, (BD ULTRA-FINE JOHN PEN NEEDLE) 32 [...] once daily. Problem List As Of Date 04/21/2025 Noted Resolved Unspecified cardiovascular disease [I25.10] 03/21/2017 [...] 01/09/2020 Stage 3b chronic kidney disease (HCC) [N18.32 (more content not included)... Normal [facility] CNPNon 04-01-2025 CNPN Telephone (INTMWS) CONCHA WOODWARD I ([id number]) 1935 F Date Time Provider Department 04/01/25 ANUJ PEARCE INTMWS During your visit today, we recorded the following information about you: Kami Mccain RN 04/01/2025 9:45 AM Signed Patient has contacted [facility] to transfer 2 of her [...] by mouth once daily. Kami Mccain RN Allergies As of Date: 04/01/2025 Noted Allergy Reaction BACTRIM (SULFAMETHOXAZOLE-TRIME TH*06/10/2008 11 - Vomiting CODEINE 08/31/2005 11 - Vomiting FARXIGA (DAPAGLIFLOZIN) 09/12/2024 8 - GI Upset PREDNISONE 09/05/2012 11 - Vomiting STATINS ([id number] REDUCTAS*05/25/2009 5 - Intolerance ULTRAM (TRAMADOL HCL) 01/17/2013 11 - Vomiting Date Reviewed: 02/19/2025 Reviewed by: Susana Harry LPN - Fully Assessed Reason for Visit: Medication Request [138] Visit Diagnoses:Type 2 diabetes mellitus with stage 3b chronic kidney disease, with long-term current use of insulin (HCC) [E11.22, N18.32, Z79.4] Hypertensive kidney disease with stage 3b chronic kidney disease (HCC) [I12.9, N18.32] Hypertension goal BP (blood pressure) < 150/90 [I10] Order(s):losartan (COZAAR) 50 mg tabletTake 1 tablet by mouth once daily.Disp: 90 tabletRfl: 1 metoprolol succinate ER (TOPROL XL) 100 mgTake 1 tablet by mouth once daily.Disp: 90 tabletRfl: 1 Prescriptions as of 04/02/2025 - losartan (COZAAR) 50 mg tablet Take [...] three times a day as needed. - amLODIPine (NORVASC) 10 mg tablet Take [...] 3 times daily Insulin Yes - Insulin [place], Disposable, (BD ULTRA-FINE JOHN PEN NEEDLE) 32 [...] once daily. Problem List As Of Date 04/01/2025 Noted Resolved Unspecified cardiovascular disease [I25.10] 03/21/2017 [...] [H69.90] 08/30/2009 02/22/2015 Diverticulosis [K57.90] 08/16/2012 02/22/2015 Ms (more content not included)... Normal [facility] NT-proBNP SerPl-mCncon 02-27 Natriuretic peptide.B prohormone N-Terminal [Mass/Vol] 4351 pg/mL High <450 [facility] Comment on above: Order Comment: Speci men Type: BLOOD SPECIMENOrdering Facility: [facility] Address: [address] [place] [address] Performed By: #### 9 [id number] #### [facility] CLIA [id number] [address] [place] [address] [place] [address] [place] XR CHEST 2V FRONTAL/LATon XR CHEST 2V FRONTAL/LAT * * *Final Repor t* * * DATE OF EXAM: Feb 27 2025 8:46AM WRX [id number] - XR CHEST 2V FRONTAL/LAT / PROCEDURE REASON: Pleural effusion * * * * Physician Interpretation * * * * EXAMINATION: CHEST RADIOGRAPH (2 VIEW FRONTAL and LATERAL) CLINICAL HISTORY: Pleural effusion MQ: XC2_6 EXAM DATE/TIME: 02/27/2025 8:46 AM COMPARISON: 02/19/2025 RESULT: Lines, tubes, and devices: None. Lungs and pleura: Interval resolution of the small left pleural effusion and mild interstitial edema Cardiomediastinal silhouette: Normal cardiomediastinal silhouette. Bones and soft tissues: No change IMPRESSION: Resolution of interstitial edema and small left pleural effusion since 02/19/2025 Web Developer: KURT Transcribe Date/Time: Feb 27 2025 10:17A Dictated by : SHARIFA BRO MD This examination was interpreted and the report reviewed and electronically signed by: SHARIFA BRO MD on Feb 27 2025 10:19AM EST [id number] Normal [facility] CNOVon 02-19-2025 CNOV Office Visit (INTMWS ) CONCHA WOODWARD I ([id number]) 1935 F Date Time Provider Department 02/19/25 12:00 PM ISHMAEL DAVIS During your visit today, we recorded the following information about you: Pulse Respiration Blood pressure Weight 80/minute 16/minute 163/69 76.8 kg Ishmael Davis APRN.NUCLEAR MEDICINE TECH 02/19/2025 12:40 PM Signed SUBJECTIVE: LDL Cholesterol due on 01/09/2025 Dilated [...] Paroxysmal Atrial Fibrillation With Rapid Ventricular Response ([facility], [facility]) Presents today for routine follow-up visit. She presented to urgent care earlier this morning with nausea and vomiting headache body aches and wheezing which started today. Chest x-ray completed and showed mild interstitial edema with trace pleural effusions. COVID and flu testing was completed. Results pending. History of CAD s/p CAB, followed by [facility]. Currently without symptomatic complaints. Recent cardiology visit 01/2025. Stopped Plavix. 6 month follow up. Labs [facility] 01/2025, BUN 42 Cr. 1.95 e GFR [...] times daily DX E11.65 Insulin Yes lancets ( (more content not included)... Normal [facility] CONCHA WOODWARD I ([id number]) 1935 F Date Time Provider Department 02/19/25 9:00 AM CARIDAD ANGLIN [facility] During your visit today, we recorded the following information about you: Temperature Pulse Respiration Blood pressure 97 degrees 83/minute 18/minute 159/70 Weight 76.8 kg Caridad Anglin APRN.LENS GR[employer]ER [employer]OUGH 02/19/2025 10:02 AM Signed [facility] Subjective Concha Torres Ian is a 89 year old female. Patient [...] history is provided by the patient. No language tutor was used. Wheezing This is a new [...] hypercholesterolemia S/P CABG x 3 01/09/2020 @ [facility] by Dr. Rivera Stroke (cerebrum) ([facility], [facility]) 2013 Type II or unspecified type diabetes mellitus without mention of complication, uncontrolled Unspecified cardiovascular disease Unspecified essential hypertension Urgency of urination 2008 PAST SURGICAL HISTORY Procedure Laterality Date ANGIOPLASTY 1988 CABG (3) VEIN GRAFTS AND ARTERIAL GRAFT(S) 01/09/2020 @ [facility] by Dr. Rivera COLONOSCOPY FLX DX W/COLLJ SPEC WHEN PFRMD 08/29/07 LAPAROSCOPY SURG CHOLECYSTECTOMY Cholecystectomy, lap LEFT HEART CATH,CUTDOWN 1991 PAST SURGICAL HISTORY OF Tubal ALLERGIES Bactrim [Sulfamethoxazole-Trime thoprim], Codeine, Farxiga [Dapagliflozin], Prednisone, Statins [Sggdlnk-Swh-Qtw Reductase Inhibitors], and Ultram [Tramadol Hcl] MEDICATIONS [...] 1 tablet by mouth once daily. Insulin [place], Disposable, (BD ULTRA-FINE JOHN PEN NEEDLE) 32 [...] mg-10 mcg (400 unit) tab Take 1 tab (more content not included)... Normal [facility] XR CHEST 2V FRONTAL/LATon XR CHEST 2V FRONTAL/LAT * * *Final Repor t* * * DATE OF EXAM: Feb 19 2025 9:31AM WOX [id number] - XR CHEST 2V FRONTAL/LAT / PROCEDURE REASON: Acute cough * * * * Physician Interpretation * * * * EXAMINATION: CHEST RADIOGRAPH (2 VIEW FRONTAL and LATERAL) CLINICAL HISTORY: Acute cough MQ: XC2_6 EXAM DATE/TIME: 02/19/2025 9:31 AM COMPARISON: Chest x-ray dated 01/15/2020 RESULT: Lines, tubes, and devices: None. Lungs and pleura: Improving left midlung zone platelike atelectasis. Mild prominence of the interstitial markings suspect for interstitial edema. Mild blunting of the posterior posterior phrenic sulci most compatible with trace pleural effusions. Cardiomediastinal silhouette: Stable cardiomediastinal silhouette with postsurgical changes from median sternotomy and CABG procedure. Bones and soft tissues: Degenerative changes are present within the thoracic spine. Surgical clips in the upper abdomen. IMPRESSION: Findings most suggestive of mild interstitial edema with trace pleural effusions. Web Developer: KURT Transcribe Date/Time: Feb 19 2025 9:31A Dictated by : ALONZO LAGUNAS MD This examination was interpreted and the report reviewed and electronically signed by: ALONZO LAGUNAS MD on Feb 19 2025 9:32AM EST [id number] Normal [facility] XR Chest PA and Lateralon IMPRESSION: Findings most suggestive of mild interstitial edema with trace pleural effusions. Web Developer: [facility] Transcribe Date/Time: Feb 19 2025 9:31A Dictated by : ALONZO LAGUNSA MD This examination was interpreted and the report reviewed and electronically signed by: ALONZO LAGUNAS MD on Feb 19 2025 9:32AM EST DIVISION OF RADIOLOGY * * *Final Report* * * DATE OF EXAM: Feb 19 2025 9:31AM WOX [id number] - XR CHEST 2V FRONTAL/LAT / PROCEDURE REASON: Acute cough * * * * Physician Interpretation * * * * EXAMINATION: CHEST RADIOGRAPH (2 VIEW FRONTAL & LATERAL) CLINICAL HISTORY: Acute cough MQ: XC2_6 EXAM DATE/TIME: 02/19/2025 9:31 AM COMPARISON: Chest x-ray dated 01/15/2020 RESULT: Lines, tubes, and devices: None. Lungs and pleura: Improving left midlung zone platelike atelectasis. Mild prominence of the interstitial markings suspect for interstitial edema. Mild blunting of the posterior posterior phrenic sulci most compatible with trace pleural effusions. Cardiomediastinal silhouette: Stable cardiomediastinal silhouette with postsurgical changes from median sternotomy and CABG procedure. Bones and soft tissues: Degenerative changes are present within the thoracic spine. Surgical clips in the upper abdomen. DIVISION OF RADIOLOGY Provider, Sid Reilly - 02/19/2025 * * *Final Report* * * DATE OF EXAM: Feb 19 2025 9:31AM WOX [id number] - XR CHEST 2V FRONTAL/LAT / PROCEDURE REASON: Acute cough * * * * Physician Interpretation * * * * EXAMINATION: CHEST RADIOGRAPH (2 VIEW FRONTAL & LATERAL) CLINICAL HISTORY: Acute cough MQ: XC2_6 EXAM DATE/TIME: 02/19/2025 9:31 AM COMPARISON: Chest x-ray dated 01/15/2020 RESULT: Lines, tubes, and devices: None. Lungs and pleura: Improving left midlung zone platelike atelectasis. Mild prominence of the interstitial markings suspect for interstitial edema. Mild blunting of the posterior posterior phrenic sulci most compatible with trace pleural effusions. Cardiomediastinal silhouette: Stable cardiomediastinal silhouette with postsurgical changes from median sternotomy and CABG procedure. Bones and soft tissues: Degenerative changes are present within the thoracic spine. Surgical clips in the upper abdomen. IMPRESSION IMPRESSION: Findings most suggestive of mild interstitial edema with trace pleural effusions. Web Developer: PSC[employer] Transcribe Date/Time: Feb 19 2025 9:31A Dictated by : ALONZO LAGUNAS MD This examination was interpreted and the report reviewed and electronically signed by: ALONZO LAGUNAS MD on Feb 19 2025 9:32AM EST [facility] Radiology Study observation (narrative) Lars mcdonald [facility] XR Chest PA and LateralOrder ed By: [facility] Provider on 02-19-2025 [facility] CNOVon 01-16-2025 CNOV Office Visit (INTMWS ) CONCHA WOODWARD I ([id number]) 1935 F Date Time Provider Department 01/16/25 1:00 PM ANJU PEARCE INTMWS During your visit today, we recorded the following information about you: Temperature Pulse Respiration Blood pressure 97 degrees 80/minute 16/minute 150/80 Weight Height 73.8 kg 1.565 m Anju Pearce MD 01/16/2025 2:02 PM Signed This note was created using Verimedriter. 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 Rivera Stroke (cerebrum) ([facility]) 2013 Type II or unspecified type diabetes [...] by mouth once daily as directed Insulin [place], Disposable, (BD ULTRA-FINE JOHN PEN NEEDLE) 32 [...] eyes daily at bedtime. RESTASIS 0.05 % opht (more content not included)... Normal [facility] Absolute lymphocyte countOrd ered By: Brionna Malin on 01-05-2025 Lymphocytes Auto (Unsp spec) [#/Vol] 2.43 10*3/uL 0.83-4.51 [facility] Absolute neutrophil countOrd ered By: Brionna Malin on 01-05-2025 Neutrophils (Bld) [#/Vol] 4.0 10*3/uL 2.0-7.7 [facility] Automated lymphocyte count a s percentage of total leukocytesOrdered By: Brionna Malin on 01-05-2025 Lymphocytes/100 WBC Auto (Unsp spec) 35.0 % 19-41 [facility] BUN/creatinine ratioOrdered By: Brionna Malin on 01-05-2025 Urea nitrogen/Creatinine [Mass ratio] 21.5 mg/mg High 10- [facility] Basic Metabolic Profile (BMP )on 01-05-2025 Anion gap [Moles/Vol] 13 mmol/L Normal 5-15 [facility] Comment on above: Performed By: #### L 500.2500, L100.0100 #### [facility] [address] [place], [address] BUN/CRE 21.5 RATIO High 10- [facility] Comment on above: Performed By: #### L 500.2500, L100.0100 #### [facility] [address] [place], [address] Calcium [Mass/Vol] 9.1 mg/dL Normal 7.6-11.0 [facility] Comment on above: Performed By: #### L 500.2500, L100.0100 #### [facility] [address] [place], [address] Chloride [Moles/Vol] 105 mmol/L Normal 96-108 [facility] Comment on above: Performed By: #### L 500.2500, L100.0100 #### [facility] [address] [place], [address] CO2 [Moles/Vol] 18.9 mmol/L Low 22.0-29.0 [facility] Comment on above: Performed By: #### L 500.2500, L100.0100 #### [facility] [address] [place], [address] Creatinine [Mass/Vol] 1.95 mg/dL High 0.70-1.20 [facility] Comment on above: Performed By: #### L 500.2500, L100.0100 #### [facility] [address] [place], [address] ECRCL 20.25 ml/min Low 50-250 [facility] Comment on above: Performed By: #### L 500.2500, L100.0100 #### [facility] [address] [place], [address] GFR/1.73 sq M.predicted among non-blacks MDRD (S/P/Bld) [Vol rate/Area] 24 mL/min/{1.73_m2} Low >60 [facility] Comment on above: Result Comment: mL/m in/1.73m2 CKD-EPI Creatinine Equation (2020) Performed By: #### L 500.2500, L100.0100 #### [facility] [address] [place], [address] Glucose [Mass/Vol] 197 mg/dL High 70-99 [facility] Comment on above: Performed By: #### L 500.2500, L100.0100 #### [facility] [address] [place], [address] Potassium [Moles/Vol] 4.1 mmol/L Normal 3.3-5.1 [facility] Comment on above: Performed By: #### L 500.2500, L100.0100 #### [facility] [address] [place], [address] Sodium [Moles/Vol] 137 mmol/L Normal 133-145 [facility] Comment on above: Performed By: #### L 500.2500, L100.0100 #### [facility] [address] [place], [address] Urea nitrogen [Mass/Vol] 42 mg/dL High 4-19 [facility] Comment on above: Performed By: #### L 500.2500, L100.0100 #### [facility] [address] [place], [address] Basophil percentageOrdered B y: Brionna Malin on 01-05-2025 Basophils/100 WBC (Bld) 0.3 % 0-1 [facility] CBC W/Diff, Automatedon Absolute Lymph 2.43 X10 3/uL Normal 0.83-4.51 [facility] Comment on above: Performed By: #### L 500.2500, L100.0100 #### [facility] [address] [place], [address] Absolute Neut 4.0 X10 3/uL Normal 2.0-7.7 [facility] Comment on above: Performed By: #### L 500.2500, L100.0100 #### [facility] [address] [place], [address] Basophils/100 WBC (Bld) 0.3 % Normal 0-1 [facility] Comment on above: Performed By: #### L 500.2500, L100.0100 #### [facility] [address] [place], [address] Eosinophils/100 WBC (Bld) 0.3 % Normal 0-5 [facility] Comment on above: Performed By: #### L 500.2500, L100.0100 #### [facility] [address] [place], [address] Erythrocyte distribution width (RBC) [Ratio] 13.3 % Normal 11.6-14.6 [facility] Comment on above: Performed By: #### L 500.2500, L100.0100 #### [facility] [address] [place], [address] Hematocrit (Bld) [Volume fraction] 35.8 % Low 37-47 [facility] Comment on above: Performed By: #### L 500.2500, L100.0100 #### [facility] [address] [place], [address] Hemoglobin (Bld) [Mass/Vol] 11.6 g/dL Low 12.0-15.0 [facility] Comment on above: Performed By: #### L 500.2500, L100.0100 #### [facility] [address] [place], [address] IG% 0.300 Normal 0.0-0.9 [facility] Comment on above: Result Comment: IG% - Immature Granulocytes (promyelocytes, myelocytes and metamyelocytes) > 1% indicates that a LEFT SHIFT is Present. Performed By: #### L 500.2500, L100.0100 #### [facility] [address] [place], [address] Lymphocytes/100 WBC (Bld) 35.0 % Normal 19-41 [facility] Comment on above: Performed By: #### L 500.2500, L100.0100 #### [facility] [address] [place], [address] MCH (RBC) [Entitic mass] 29.6 pg Normal 27.0-32.0 [facility] Comment on above: Performed By: #### L 500.2500, L100.0100 #### [facility] [address] [place], [address] MCHC (RBC) [Mass/Vol] 32.4 g/dL Normal 32-36 [facility] Comment on above: Performed By: #### L 500.2500, L100.0100 #### [facility] [address] [place], [address] MCV (RBC) [Entitic vol] 91.3 fL Normal 81-99 [facility] Comment on above: Performed By: #### L 500.2500, L100.0100 #### [facility] [address] [place], [address] Monocytes/100 WBC (Bld) 7.2 % Normal 0-10 [facility] Comment on above: Performed By: #### L 500.2500, L100.0100 #### [facility] [address] [place], [address] Neutrophils/100 WBC (Bld) 56.9 % Normal 47-70 [facility] Comment on above: Performed By: #### L 500.2500, L100.0100 #### [facility] [address] [place], [address] Nucleated RBC (Bld) [#/Vol] 0 10*3/uL Normal 0-5 [facility] Comment on above: Performed By: #### L 500.2500, L100.0100 #### [facility] [address] [place], [address] Platelet mean volume (Bld) [Entitic vol] 11.1 fL Normal 6.2-12.0 [facility] Comment on above: Performed By: #### L 500.2500, L100.0100 #### [facility] [address] [place], [address] Platelets (Bld) [#/Vol] 228 10*3/uL Normal 150-450 [facility] Comment on above: Performed By: #### L 500.2500, L100.0100 #### [facility] [address] [place], [address] RBC (Bld) [#/Vol] 3.92 10*6/uL Low 4.2-5.4 [facility] Comment on above: Performed By: #### L 500.2500, L100.0100 #### [facility] [address] [place], [address] RDW SD 44.8 fl High 35.1-43.9 [facility] Comment on above: Performed By: #### L 500.2500, L100.0100 #### [facility] [address] [place], [address] WBC (Bld) [#/Vol] 6.9 10*3/uL Normal 4.4-11.0 [facility] Comment on above: Performed By: #### L 500.2500, L100.0100 #### [facility] [address] [place], [address] Carbon dioxide measurementOr dered By: Brionna Malin on 01-05-2025 CO2 [Moles/Vol] 18.9 mmol/L Low 22.0-29.0 [facility] Chest PA and Lateralon 01-05 Chest PA and Lateral [facility] Imaging Services [address] [place] [address] Chest PA and Lateral MR#: [id number] Acct: [id number] Name: CONCHA WOODWARD Rep #: [id number] : 1935 F 89 From: Isidro Lynn MD PCP: Dr. Anju Pearce MD Status: [facility] ER Study: Chest PA and Lateral Date of Exam: 01/05/25 Exam# [id number] Ordering Dr: Brionna Malin EXAM: XR Chest, 2 Views CLINICAL INDICATION: TECHNIQUE: Frontal and lateral views of the chest. COMPARISON: No relevant prior studies available. FINDINGS: LUNGS AND PLEURAL SPACES: Unremarkable. No consolidation. No pneumothorax. HEART: Unremarkable. No cardiomegaly. MEDIASTINUM: Unremarkable. Normal mediastinal contour. BONES/JOINTS: Unremarkable. No acute fracture. RAD/Chest PA and Lateral IMPRESSION: No acute cardiopulmonary process. Reading Location: [facility] CC: Dr. Anju Pearce MD; RANDY Hinds Web Developer: Signed Normal [facility] Chloride measurementOrdered By: Brionna Malin on 01-05-2025 Chloride [Moles/Vol] 105 mmol/L 96-108 [facility] Emergency Department Summary on 01-05-2025 Emergency Department Summary [facility] Medical Records Department [address] [place] [id number] Emergency Department Summary 01/05/25 MR#: [id number] Acct: [id number] Name: CONCHA WOODWARD Rep #: [id number] : 1935 89 From: Igor Wells DO PCP: Dr. Anju Pearce MD Status:[facility] ER Location: ED Patient was seen and examined with physician music assistant Brionna All components of the history and physical confirmed and agreed. History of present illness and physical exam: Patient is a 89-year-old female past medical history of of CAD, carotid stenosis, thrombocytopenia, hypertension, diabetes, meningioma who presents to the emergency department with a chief complaint not feeling well for the past 5 days. States that she originally started with cough congestion and generalized weakness. States that she is prescribed Tamiflu by her daughters physician colleague based on her symptoms did not test for influenza. States that she took 3 doses but this made her worse therefore she discontinued taking this. States that this morning she woke up with chills sweats and feeling worse therefore they brought her here for further evaluation management. Review of systems: Agree with above Physical exam:. Above MDM Patient is a 89-year-old female who presented to the emerged part with chief complaint of generalized not feeling well. On the differential diagnose includes but limited to COVID, flu, ACS, pneumonia, other upper respiratory effect secondary viral etiology electrolyte abnormality. Once workup is obtained reviewed she will be reevaluated. Patient CBC reviewed showed no evidence leukocytosis white blood count of 6.9, hemoglobin was 11.6, plate count noted be 228. Her sodium was normal at 137, potassium low at 4.1, creatinine was elevated 1.95, calcium 9.1. Patient chest x-ray reviewed myself by radiology showed no acute cardiopulmonary processes. Patient did test positive for influenza A here in the emergency department. Patient ambulate here in the emerged part without any difficulty. Did discuss results with the patient and for member at bedside. Patient would like to go home at this point time. She advised to continue supportive care and follow-up with her primary care [facility] setting. She is encouraged return with worsening symptoms or concerns. She is agreeable spinal cord concerns answered she is discharged home in stable condition. Final impression: Influenza A Disposition: Patient will be discharged home in stable condition Supervising attending attestation: Igor WHITTINGTON History of Present Illness Chief Complaint: General Illness Narrative Narrative: 89-year-old female with PMH of HTN, HLD, DM2, CKD, CABG has had 5 days of generalized illness. It started with congestion, cough, and generalized weakness. She was prescribed Tamiflu by her daughters physician colleague based on her symptoms but was not tested for influenza. She took 3 doses but it caused nausea vomiting and diarrhea so she stopped taking it. She was doing better for a day or so but this morning woke up with chills, sweats, continued cough and generalized weakness and decided to be evaluated. She denies chest pain or shortness of breath. [facility] Medical History Atherosclerosis of coronary artery of [place] heart without angina pectoris Bilateral renal cysts STEMI (ST elevation myocardial infarction) Acute renal failure superimposed on stage 3 chronic kidney disease Paroxysmal atrial fibrillation with RVR Carotid stenosis, right Decubitus ulcer, stage II Thrombocytopenia Acute blood loss anemia Chronic renal failure, stage 3 (moderate) Benign paroxysmal positional vertigo Mild atrial enlargement, left Nonrheumatic mitral valve regurgitation Internal hemorrhoids Diverticulosis Ischemic cardiomyopathy Hypertension Diabetes Physical debility Constipation due to pain medication Gout Basal ganglia infarction Intracranial meningioma Type II diabetes mellitus Benign hypertension Home Medications ???Medication ???Instructions ???Recorded ???Last Taken ???Type allopurinol 100 mg tablet 100 mg PO DAILYCM gout 04/28/14 History aspirin 81 mg chewable tablet 81 mg PO DAILY heart 01/17/20 Unkn own History calcium carbonate-vitamin D3 600 1 ea PO DAILY bones 01/17/20 Unkno wn History mg-125 unit tablet metoprolol succinate 100 mg 100 mg PO DAILY bp 01/17/20 Unknow n History tablet,extended release 24 hr amlodipine 5 mg tablet 5 mg PO DAILY 03/03/20 Unknown His tory insulin aspart U-100 100 unit/mL 7 unit subcut QAC dm 06/28/20 Unkn own History (3 mL) subcutaneous pen insulin glargine 100 unit/mL (3 9 unit subcut DAILY 06/28/20 Unkno wn History mL) subcutaneous pen propylene glycol 0.6 % eye drops (more content not included)... Normal [facility] Eosinophil percentageOrdered By: Brionna Malin on 01-05-2025 Eosinophils/100 WBC (Bld) 0.3 % 0-5 [facility] Erythrocyte distribution wid th ratioOrdered By: Brionna Malin on 01-05-2025 Erythrocyte distribution width (RBC) [Ratio] 13.3 % 11.6-14.6 [facility] Erythrocyte distribution wid th standard deviationOrdered By: Brionna Malin on 01-05-2025 Erythrocyte distribution width (RBC) [Ratio] 44.8 fl High 35.1-43.9 [facility] Glomerular filtration rate ( GFR) estimation/1.73 sq m using serum, plasma, or whole bOrdered By: Brionna Malin on 01-05-2025 GFR/1.73 sq M.predicted among non-blacks MDRD (S/P/Bld) [Vol rate/Area] 24 mL/min/{1.73_m2} Low >60 [facility] Comment on above: mL/min/1.73m2 CKD-EP I Creatinine Equation (2020) Hematocrit Auto (Bld) [Volum e fraction]Ordered By: Brionna Malin on 01-05-2025 Hematocrit (Bld) [Volume fraction] 35.8 % Low 37-47 [facility] Hemoglobin measurementOrdere d By: Brionna Malin on 01-05-2025 Hemoglobin (Bld) [Mass/Vol] 11.6 g/dL Low 12.0-15.0 [facility] Immature granulocytes/100 WB C Auto (Bld)Ordered By: Brionna Malin on 01-05-2025 Immature granulocytes/100 WBC (Bld) 0.300 % 0.0-0.9 [facility] Comment on above: IG% - Immature Granu locytes (promyelocytes, myelocytes and metamyelocytes) > 1% indicates that a LEFT SHIFT is Present. Influenza virus A and B and SARS-CoV-2 (COVID-19) and Respiratory syncytial virus RNAOrdered By: Brionna Malin on 01-05-2025 SARS-CoV-2 (COVID-19) RNA MARIS+probe Ql (Unsp spec) Influenzae A Abnormal [facility] M100.678on 01-05-2025 SARS-CoV-2 (COVID-19) Ab IA Ql Normal Reference Range = Negative FLUABV+SARS-CoV-2+RSV Pnl Resp MARIS+probe GeneXpert Instrument, PCR method FLUABV+SARS-CoV-2+RSV Pnl Resp MARIS+probe RESULTS CALLED TO RITA Rebolledo 01/05/25 1245 Eulalia Villalta. REPORT READ BACK . Copy of report sent to Infection Control Printer MS#[id number] 01/05/25 4573 ELSI. SARS-CoV-2 (COVID 19) Negative INFLUENZA A A Positive A INFLUENZA B Negative RSV PCR Negative INFLUENZAE A Normal [facility] Comment on above: Performed By: #### M 100.039 #### [facility] [address] [place], [place] [address], [place], [id number] MCV (mean corpuscular volume ) determinationOrdered By: Brionna Malin on 01-05-2025 MCV (RBC) [Entitic vol] 91.3 fL 81-99 [facility] Mean corpuscular hemoglobin (MCH) determinationOrdered By: Brionna Malin on 01-05-2025 MCH (RBC) [Entitic mass] 29.6 pg 27.0-32.0 [facility] Mean corpuscular hemoglobin concentration (MCHC) determinationOrdered By: Brionna Malin on 01-05-2025 MCHC (RBC) [Mass/Vol] 32.4 g/dL 32-36 [facility] Mean platelet volume determi nationOrdered By: Brionna Malin on 01-05-2025 Platelet mean volume (Bld) [Entitic vol] 11.1 fL 6.2-12.0 [facility] Monocyte percentageOrdered B y: Brionna Malin on 01-05-2025 Monocytes/100 WBC (Bld) 7.2 % 0-10 [facility] Neutrophil percentageOrdered By: Brionna Malin on 01-05-2025 Neutrophils/100 WBC (Bld) 56.9 % 47-70 [facility] Nucleated red blood cell per centageOrdered By: Brionna Malin on 01-05-2025 Nucleated RBC/100 WBC (Bld) [Ratio] 0 % 0-5 [facility] Platelet countOrdered By: Martita Malin on 01-05-2025 Platelets (Bld) [#/Vol] 228 10*3/uL 150-450 [facility] RBC Auto (Bld) [#/Vol]Ordere d By: Brionna Malin on 01-05-2025 RBC (Bld) [#/Vol] 3.92 10*6/uL Low 4.2-5.4 [facility] Serum creatinine measurement (mass/volume)Ordered By: Brionna Malin on 01-05-2025 Creatinine [Mass/Vol] 1.95 mg/dL High 0.70-1.20 [facility] Serum glucose measurement (m ass/volume)Ordered By: Brionna Malin on 01-05-2025 Glucose [Mass/Vol] 197 mg/dL High 70-99 [facility] Serum or plasma anion gap de termination (moles/volume)Ordered By: Brionna Malin on 01-05-2025 Anion gap [Moles/Vol] 13 mmol/L 5-15 [facility] Serum or plasma calcium anita urement (mass/volume)Ordered By: Brionna Malin on 01-05-2025 Calcium [Mass/Vol] 9.1 mg/dL 7.6-11.0 [facility] Serum or plasma potassium me asurementOrdered By: Brionna Malin on 01-05-2025 Potassium [Moles/Vol] 4.1 mmol/L 3.3-5.1 [facility] Serum or plasma sodium measu rement (moles/volume)Ordered By: Brionna Dea on 01-05-2025 Sodium [Moles/Vol] 137 mmol/L 133-145 [facility] Serum or plasma urea nitroge n measurement (mass/volume)Ordered By: Brionnarach Malin on 01-05-2025 Urea nitrogen [Mass/Vol] 42 mg/dL High 02-21 [facility] White blood cell (WBC) count Ordered By: Brionna Dea on 01-05-2025 WBC (Bld) [#/Vol] 6.9 10*3/uL 4.4-11.0 [facility] Echo Completeon 10-23-2024 Echo Complete [facility] [address] [place] [address] Echo Complete 10/23/24 1250 MR#: [id number] Acct: [id number] Name: CONCHA WOODWARD Rep #: [id number] : 1935 89 From: Harris Kessler MD Attending Dr: RANDY Zamudio Status: REG CLI Ordering Dr: Marika George Date: 10/05 07/29 Location: [facility] Sex: F C Admitted: Reason For Study: CARDIOMYOPATHY Procedure This was a 2D Doppler, Color Flow transthoracic echocardiogram. The study was technically difficult. Exam performed in department. Left Ventricle Normal LV size. Mild concentric left ventricular hypertrophy. The left ventricular ejection fraction is 50 %. Stage 2 diastolic dysfunction. No regional wall motion abnormalities noted. Right Ventricle Normal RV size. Normal systolic function. Atria Normal left atrium. Normal right atrium. Mitral Valve Normal mitral valve. Mild (1+) eccentric mitral valve insufficiency. Tricuspid Valve Normal tricuspid valve. Aortic Valve Trisinus/trileaflet aortic valve. Mild focal aortic valve calcification. Pulmonic Valve Normal pulmonic valve. Great Vessels Normal aortic root. The pulmonary artery is normal size. Normal inferior vena cava. Pericardium/Pleural No pericardial effusion. Medication Unable to gain IV access for Defintiy. MMode/2D Measurements Calculations LVIDd: 4.7 cm IVSd: 1.2 cm LVOT diam: 1.9 cm LVIDs: 3.4 cm LVPWd: 1.2 cm RVDd: 3.0 cm FS: 28.0 % LVOT area: 2.8 cm2 asc Aorta Diam: 3.0 cm LAV(MOD-bp): 40.0 ml LVAd ap4: 17.8 cm2 LAV(MOD-bp) Indexed: 22.2 ml/m2 LVLd ap4: 6.3 cm LAV(MOD-sp2): 41.8 ml EDV(MOD-sp4): 45.2 ml LAV(MOD-sp4): 36.0 ml EDV(sp4-el): 43.1 ml LVAs ap4: 11.9 cm2 LVLs ap4: 5.6 cm ESV(MOD-sp4): 22.4 ml ESV(sp4-el): 21.5 ml EF(MOD-sp4): 50.4 % EF(sp4-el): 50.0 % LVAd ap2: 19.2 cm2 SV(MOD-sp4): 22.8 ml SV(MOD-sp2): 26.1 ml LVLd ap2: 6.3 cm SI(MOD-sp4): 12.6 ml/m2 SI(MOD-sp2): 14.5 ml/m2 EDV(MOD-sp2): 51.1 ml EDV(sp2-el): 49.3 ml LVAs ap2: 12.1 cm2 LVLs ap2: 5.6 cm ESV(MOD-sp2): 24.9 ml ESV(sp2-el): 22.1 ml EF(MOD-sp2): 51.2 % SV(sp4-el): 21.5 ml Ao sinus diam: 2.[address] Junction: 2.1 cm LA dimension(2D): 4.0 cm LA A4 area: 15.9 cm2 RA A4 area: 10.0 cm2 TAPSE: 1.3 cm Time Measurements MV dec time: 0.15 sec Doppler Measurements Calculations MV E max sirda: 103.8 cm/sec Lat Peak E' Sidra: 6.5 cm/sec Med Peak E' Sidra: 5.0 cm/sec MV A max sidra: 57.8 cm/sec E/E' lat: 16.0 E/E' med: 20.7 MV E/A: 1.8 MV dec slope: 684.9 cm/sec2 Ao V2 max: 129.3 cm/sec LV V1 max: 82.5 cm/sec Ao max P.7 mmHg LV V1 max P.7 mmHg Ao V2 mean: 94.7 cm/sec LV V1 mean P.9 mmHg Ao mean P.9 mmHg LV V1 mean: 65.4 cm/sec Ao V2 VTI: 34.3 cm LV V1 VTI: 22.9 cm AV (velocity ratio): 0.67 TAVARES(I,D): 1.9 cm2 TAVARES(V,D): 1.8 cm2 SV(LVOT): 64.5 ml PA V2 max: 80.8 cm/sec ECHO/Echo Complete Interpretation Summary Normal LV size. The left ventricular ejection fraction is 50 %. Stage 2 diastolic dysfunction. Structurally normal valves. Ordering Physician: Marika George Referring Physician: Anju Pearce M.D. Performed By: Therese Adams SATINDER 10/23/24 1402 Date Harris Kessler MD CC: Dr. Anju Pearce MD; RANDY Zamudio Date Dictated: 10/23/24 1250 Date Transcribed: 10/23/24 1402 Web Developer: Signed Normal [facility] Cardiology Visit Reporton Cardiology Visit Report [facility] [address] [place], [place] [address] OFFICE VISIT Date of Service: 09/22/24 MR#: [id number] Acct: [id number] Name: CONCHA WOODWARD Rep #: [id number] : 1935 Provider: RANDY Silverio Age/Sex: 89/F Location: [facility] Status: Signed HPI HPI History of Present Illness Details: Concha Woodward is an 89-year-old female that presents here today for a cardiovascular follow-up. She was last to see us in the office in 2001. She has a history of coronary artery disease requiring bypass surgery. On January 09, 2020 she underwent a four-vessel bypass at [facility]. (GHOSH to diagonal sequenced to LAD, SVG to OM sequenced to RPL). Patient was found to have an EF of around 30% when she had presented with FL. This has since resolved. She has CKD and her lisinopril was discontinued due to rise in creatinine. She does not have any worsening SOB, orthopnea. She does not have any problems with her ADLS. She does go to [employer]. She does go three times a week for 30 minutes, She does not have any chest pain. She does not palpitations. She does not have any edema. Primary care doctor was concerned about elevated BT RN FACULTY which prompted office visit today. Intake Vital Signs 10/03/22 13:54 09/22/24 14:43 09/22/24 14:44 Height 5 ft 3 in 5 ft 3 in 5 ft 3 in Weight: 169 lb BMI 29.9 BP 143/67 H Blood Pressure Location Lt brachial Position Sitting Respiration 18 Pulse 74 Pulse Source Monitor Pulse Oximetry (%) 97 Intake Visit Reasons: OVERDUE FOR F/U/LAST SEEN 11/26 [place] Required: No Is patient in pain?: No Allergies codeine Adverse Reaction (Verified 09/22/24 14:45) Nausea/Vom/Diarrhea morphine Adverse Reaction (Verified 09/22/24 14:45) Nausea/Vom/Diarrhea Medications ???Medication ???Instructions ???Recorded ???Confirmed ???Type allopurinol 100 mg tablet 100 mg PO DAILYCM gout 04/28/14 09/22/24 History aspirin 81 mg chewable tablet 81 mg PO DAILY heart 01/17/20 09/22/24 History calcium carbonate-vitamin D3 600 1 ea PO DAILY bones 01/17/20 09/22/24 History mg-125 unit tablet metoprolol succinate 100 mg 100 mg PO DAILY bp 01/17/20 09/22/24 History tablet,extended release 24 hr amlodipine 5 mg tablet 5 mg PO DAILY 03/03/20 09/22/24 History insulin aspart U-100 100 unit/mL 7 unit subcut QAC dm 06/28/20 09/22/24 History (3 mL) subcutaneous pen insulin glargine 100 unit/mL (3 9 unit subcut DAILY 06/28/20 09/22/24 History mL) subcutaneous pen propylene glycol 0.6 % eye drops 1 drp ophthalmic (eye) DAILY PRN 06/28/20 09/22/24 History (Systane Balance) Dry Eyes ondansetron 4 mg disintegrating 4 mg PO Q8H PRN nausea and 10/03/22 09/22/24 Rx tablet vomiting #10 tabs losartan 50 mg tablet 50 mg PO QDAY 09/22/24 09/22/24 History rosuvastatin 10 mg tablet 10 mg PO QDAY 09/22/24 09/22/24 History Have you fallen in the past year?: No PFSH Medical History Atherosclerosis of coronary artery of [place] heart without angina pectoris Bilateral renal cysts STEMI (ST elevation myocardial infarction) Acute renal failure superimposed on stage 3 chronic kidney disease Paroxysmal atrial fibrillation with RVR Carotid stenosis, right Decubitus ulcer, stage II Thrombocytopenia Acute blood loss anemia Chronic renal failure, stage 3 (moderate) Benign paroxysmal positional vertigo Mild atrial enlargement, left Nonrheumatic mitral valve regurgitation Internal hemorrhoids Diverticulosis Ischemic cardiomyopathy Hypertension Diabetes Physical debility Constipation due to pain medication Gout Basal ganglia infarction Intracranial meningioma Type II diabetes mellitus Benign hypertension Surgical History History of cholecystectomy History of coronary artery bypass graft H/O angioplasty History of left heart catheterization tubal Family History Aunt Breast cancer Mother Heart disease Father Heart disease Social History number of children: 2 current occupational status: retired Smoking Status: Former smoker alcohol intake: never substance use type: does not use diet: diabetic caffeine: Yes Type: coffee Number of servings: 1 seatbelt use: always do you feel safe at home: Yes additional social history: 2 children adopted ROS Const Const: Negative for fatigue, weakness or headache(s) Eyes Eyes: Negative for transient loss of vision or change in vision ENT ENT: Negative for headache(s) or dizziness Cardio Chest Pain: No Palpitations: No Edema: None Mus (more content not included)... Normal [facility] Basic metabolic 2000 panelon 09-12-2024 Anion gap [Moles/Vol] 14 mmol/L Normal 8-[address] [facility] Comment on above: Order Comment: Speci men Type: BLOOD SPECIMENOrdering Facility: [facility] Address: [address] [place] [address] Performed By: #### 9 5941-1 #### [facility] CLIA [id number] [address] [place] [address] [place] Calcium [Mass/Vol] 9.4 mg/dL Normal 8.5-10.2 [facility] Comment on above: Order Comment: Speci men Type: BLOOD SPECIMENOrdering Facility: [facility] Address: [address] [place] [address] Performed By: #### 9 5941-1 #### [facility] CLIA [id number] [address] [place] [address] [place] Chloride [Moles/Vol] 106 mmol/L Normal 98-107 [facility] Comment on above: Order Comment: Speci men Type: BLOOD SPECIMENOrdering Facility: [facility] Address: [address] [place] [address] Performed By: #### 9 5941-1 #### [facility] CLIA [id number] [address] [place] [address] [place] CO2 [Moles/Vol] 18 mmol/L Low 22-30 [facility] Comment on above: Order Comment: Speci men Type: BLOOD SPECIMENOrdering Facility: [facility] Address: [address] [place] [address] Performed By: #### 9 5941-1 #### [facility] IA [id number] [address] [place] [address] [place] Creatinine [Mass/Vol] 2.20 mg/dL High 0.58-0.[address] [facility] Comment on above: Order Comment: Speci men Type: BLOOD SPECIMENOrdering Facility: [facility] Address: [address] [place] [address] Performed By: #### 9 5941-1 #### [facility] IA [id number] [address] [place] [address] [place] Creatinine and Glomerular filtration rate.predicted panel (S/P/Bld) 21 mL/min/1.73m??? Low >=60 [facility] Comment on above: Order Comment: Speci men Type: BLOOD SPECIMENOrdering Facility: [facility] Address: [address] [place] [address] Result Comment: Kathie mated Glomerular Filtration Rate (eGFR) is calculated using the 2020 CKD-EPI creatinine equation. This equation utilizes serum creatinine, sex, and age as parameters. The creatinine assay has traceable calibration to isotope dilution-mass spectrometry. Refer to KDIGO guidelines for clinical interpretation. In patients with unstable renal function, e.g. those with acute kidney injury, the eGFR may not accurately reflect actual GFR. Performed By: #### 9 5941-1 #### [facility] IA [id number] [address] [place] [address] [place] Glucose [Mass/Vol] 162 mg/dL High 74-99 [facility] Comment on above: Order Comment: Speci men Type: BLOOD SPECIMENOrdering Facility: [facility] Address: [address] [place] [address] Result Comment: The [place] Diabetes Association (ADA) provides guidance for cutoff values for fasting glucose and random glucose. The ADA defines fasting as no caloric intake for at least 8 hours. Fasting plasma glucose results between 100 to 125 mg/dL indicate increased risk for diabetes (prediabetes). Fasting plasma glucose results greater than or equal to 126 mg/dL meet the criteria for diagnosis of diabetes. In the absence of unequivocal hyperglycemia, results should be confirmed by repeat testing. In a patient with classic symptoms of hyperglycemia or hyperglycemic crisis, random plasma glucose results greater than or equal to 200 mg/dL meet the criteria for diagnosis of diabetes. Reference: Standards of Medical Care in Diabetes 2016, [place] Diabetes Association. Diabetes Care. 2016.39(Suppl 1). Performed By: #### 9 5941-1 #### [facility] CLIA [id number] [address] [place] [address] [place] Potassium [Moles/Vol] 5.5 mmol/L High 3.7-5.[address] [facility] Comment on above: Order Comment: Speci men Type: BLOOD SPECIMENOrdering Facility: [facility] Address: [address] [place] [address] Performed By: #### 9 5941-1 #### [facility] CLIA [id number] [address] [place] [address] [place] Sodium [Moles/Vol] 138 mmol/L Normal 136-144 [facility] Comment on above: Order Comment: Speci men Type: BLOOD SPECIMENOrdering Facility: [facility] Address: [address] [place] [address] Performed By: #### 9 5941-1 #### [facility] CLIA [id number] [address] [place] [address] [place] Urea nitrogen [Mass/Vol] 53 mg/dL High 7-21 [facility] Comment on above: Order Comment: Speci men Type: BLOOD SPECIMENOrdering Facility: [facility] Address: [address] [place] [address] Performed By: #### 9 5941-1 #### [facility] CLIA [id number] [address] [place] [address] [place] [id number] [place] CNOVon 09-12-2024 CNOV Office Visit (INTMWS ) CONCHA WOODWARD I ([id number]) 1935 F Date Time Provider Department 09/12/24 1:00 PM ISHMAEL DAVIS INTMWS During your visit today, we recorded the following information about you: Pulse Respiration Blood pressure Weight 80/minute 16/minute 150/67 78 kg Ishmael Davis, ALCIRA.NUCLEAR MEDICINE TECH 09/18/2024 7:49 AM Addendum SUBJECTIVE: Covid-19 Vaccine( season) due on 07/06/2024 HPI Concha Woodward is [...] Type (Hcc) Chronic Renal Disease, Stage IV ([facility], [facility]) Paroxysmal Atrial Fibrillation With Rapid Ventricular Response ([facility], [facility]) Presents today for routine follow-up visit. Aspirin and Plavix are taken daily. History of CAD s/p CAB, followed by [facility]. Currently without symptomatic complaints. Reports no recent visit. History of CHF taking losartan, metoprolol succinate. DIABETES MELLITUS: Without report of excessive thirst or increased frequency of urination, chest pain or dyspnea , numbness, tingling or pain in extremities, new or unusual visual symptoms, low sugar/hypoglycemic reactions, weight loss/gain, lightheadedness/dizzine ss, and bowel changes/loose stools. . Patient's last [...] Units daily with lunch AND 6 Units (more content not included)... Normal [facility] HbA1c (Bld)on 09-12-2024 Average glucose Estimated from glycated hemoglobin (Bld) [Mass/Vol] 174 mg/dL Normal [facility] Comment on above: Order Comment: Speci men Type: BLOOD SPECIMENOrdering Facility: [facility] Address: [address] [place] [address] Result Comment: eAG: (Estimated average glucose) is a calculated value from HgbA1c and is corporate sales representative of the average blood glucose level in the last 2-3 month period. Performed By: #### 5 5454-3 ####[facility] [id number] [place] [address] [place] HbA1c (Bld) [Mass fraction] 7.7 % High 4.3-5.6 [facility] Comment on above: Order Comment: Luis Armando karime Type: BLOOD SPECIMENOrdering Facility: [facility] Address: [address] [place] [address] Result Comment: [place] Diabetes Association guidelines indicate that patients with HgbA1c in the range 5.7-6.4% are at increased risk for development of diabetes, and intervention by lifestyle modification may be beneficial. HgbA1c greater or equal to 6.5% is considered diagnostic of diabetes. Performed By: #### 5 5454-3 ####[facility] [id number] [address] [place] NT-proBNP [facility] 09-12 Natriuretic peptide.B prohormone N-Terminal [Mass/Vol] 3739 pg/mL High <450 [facility] Comment on above: Order Comment: Luis Armando schaffer Type: BLOOD SPECIMENOrdering Facility: [facility] Address: [address] [place] [address] Performed By: #### 3 3762-6, 46709-9 ####[facility] [id number] [address] [place] Jillian 06-20-2024 [facility] Telephone (INTWS) CONCHA WOODWARD I ([id number]) 1935 F Date Time Provider Department 06/20/24 ANJU PEARCE INTWS During your visit today, we recorded the following information about you: Lora Mitchell LPN 06/20/2024 3:50 PM Signed Please clarify directions on patients Insulin. States that she is confused if she should take lunch time insulin or hold lunchtime insulin. Directions on prescriptions are not clear. Please advise. Anju Pearce MD 06/20/2024 6:23 PM Signed If she has been holding lunch time insulin, continue to hold it The order was filed with prior directions to get Novolog since FIASP not available Can send new RX in with no insulin at lunch if not needing anything if that helps make if clearer for her. If she has been taking lunch insulin and sugars fine, may keep taking it. Dirk Simms RN 06/21/2024 8:13 AM Signed Phoned patient and given provider's message below with verbalized understanding. Patient reports she picked Fiasp at [facility] pharmacy yesterday. Reports her insurance would not cover novolog. Reports she has been taking 3 units at lunch and will continue to do so. Anju Perace MD 06/21/2024 1:39 PM Signed Noted back on FIASP. Okay to continue lunch time insulin. Adjust dose of insulin with meals as needed Updated med list Allergies As of Date: 06/20/2024 Noted Allergy Reaction BACTRIM (SULFAMETHOXAZOLE-TRIME TH*06/10/2008 11 - Vomiting CODEINE 08/31/2005 11 - Vomiting PREDNISONE 09/05/2012 11 - Vomiting STATINS (FTOESYI-XIQ-LGR REDUCTAS*05/25/2009 5 - Intolerance ULTRAM (TRAMADOL HCL) 01/17/2013 11 - Vomiting Date Reviewed: 05/12/2024 Reviewed by: Ishmael Davis APRN.NUCLEAR MEDICINE TECH - Fully Assessed Reason for Visit: Medication Problem [65] Prescriptions as of 06/21/2024 - insulin aspart, niacinamide, (FIASP FLEXTOUCH U-100 INSULIN) 100 unit/mL (3 mL) pen Inject 8 Units subcutaneously daily with breakfast AND 4 Units daily with lunch AND 6 Units daily with dinner. Will switch from Novolog to Fiasp in 2023. HOLD LUNCH TIME INSULIN FOR NOW. - allopurinol (ZYLOPRIM) 100 mg tablet Take 1 tablet by mouth once daily. - clopidogrel (PLAVIX) 75 mg tablet Take 1 tablet by mouth once daily. - dapagliflozin propanediol (FARXIGA) 5 mg tablet Take 1 tablet by mouth daily with breakfast. - carbamide peroxide (DEBROX) 6.5 % otic [...] glucose 3 times daily Insulin Yes - amLODIPine (NORVASC) 10 mg tablet Take 1 tablet by mouth once daily. Dose change, take 1 daily - metoprolol succinate ER (TOPROL XL) 100 mg Take 1 tablet by mouth once daily. - rosuvastatin (CRESTOR) 5 mg tablet take 1 tablet by mouth once daily as directed - losartan (COZAAR) 50 mg tablet take 1 tablet by mouth once daily - insulin glargine (BASAGLAR KWIKPEN U-100 INSULIN) 100 unit/mL (3 mL) Inject 14 Units subcutaneously daily at bedtime. - Insulin [place], Disposable, (BD ULTRA-FINE JOHN PEN NEEDLE) 32 [...] Take 1 tablet by mouth once daily. Medication notes this encounter FIASP FLEXTOUCH U-100 INSULIN 100 UNIT/ML (3 ML) SUBCUTANEOUS PEN >> Anju Pearce MD 06/21/2024 1:38 PM >> ANJU PEARCE Jun 21, 2024 1:38 PM Received from pharmacy when available; Novolog not covered Problem List As Of Date 06/20/2024 Noted Resolved Unspecified cardiovascular disease [I25.10] 03/21/2017 [...] cerebral meninges (HCC) [D32*12/26/2008 02/11/2020 Urgency of urina (more content not included)... Normal [facility] 06-19-2024 [facility] CONCHA WOODWARD I ([id number]) 1935 F Date Time Provider Department 06/19/24 ANJ[facility] PE[facility]CE [facility] During your visit today, we recorded the following information about you: Aidee Morrison, WOUND/OSTOMY CLINICAL NURSE SPECIALIST 06/19/2024 2:37 PM Signed Pt calls states will be out of insulin tomorrow. Just got off phone with [facility] they will not get her fiasp- flex touch insulin in until end of month or later called a few other stores in town same thing. Asking if something else could be called in in its place for her? Ishmael Davis APRN.NUCLEAR MEDICINE TECH 06/19/2024 3:11 PM Signed Rx sent for Novolog which she was taking before. Can check to see if fiasp available at [facility] pharmacy. Esthela Linder RN 06/19/2024 4:05 PM Signed Pt called and is notified of providers message and instructions. Pt voices understanding. She is going to call [facility] pharmacy and if they have the fiasp in stock she will call us back to send it over there. She said her insurance doesn't cover the Novolog anymore that's why she went to the [facility]. I also told her she could call her insurance and see if there is anything else they cover aside from the fiasp as it is out of stick. RITA Flores Beth, LPN 06/19/2024 4:21 PM Signed Patient calling back [facility] pharmacy only one that has Fiasp insulin in stock. Not sure which to pend. Patient was wanting to get picked up today, told her pharmacy closes early. Please advise Ishmael Davis APRN.NUCLEAR MEDICINE TECH 06/19/2024 4:47 PM Signed I sent in both prescriptions. She can pick whichever one she can get. If the [facility] pharmacy is closed and she prefers the Fiasp insulin and wants to wait until tomorrow I think that is okay Ishmael Davis APRN.NUCLEAR MEDICINE TECH 06/19/2024 4:47 PM Signed Addended by: ISHMAEL DAVIS on: 06/19/2024 04:47 PM Modules accepted: Susana Simpson LPN 06/19/2024 5:00 PM Signed Patient notified of providers message and verbalized understanding. Allergies As of Date: 06/19/2024 Noted Allergy Reaction BACTRIM (SULFAMETHOXAZOLE-TRIME TH*06/10/2008 11 - Vomiting CODEINE 08/31/2005 11 - Vomiting PREDNISONE 09/05/2012 11 - Vomiting STATINS ([id number] REDUCTAS*05/25/2009 5 - Intolerance ULTRAM (TRAMADOL HCL) 01/17/2013 11 - Vomiting Date Reviewed: 05/12/2024 Reviewed by: Ishmael Davis APRN.NUCLEAR MEDICINE TECH - Fully Assessed Reason for Visit: Medication Problem [65] Order(s):insulin aspart U-100 (NOVOLOG FLEXPEN U-100 INSULIN) 100 unit/mL (3 mL)Take 8 units with breakfast, 4 units with lunch, and 6 units with dinner. Fiasp not currently available at pharmacy.Disp: 15 EachRfl: 0 insulin aspart, niacinamide, (FIASP FLEXTOUCH U-100 INSULIN) 100 unit/mL (3 mL) penInject 8 Units subcutaneously daily with breakfast AND 4 Units daily with lunch AND 6 Units daily with dinner. Will switch from Novolog to Fiasp in 2023. HOLD LUNCH TIME INSULIN FOR NOW.Disp: 15 EachRfl: 3 Prescriptions as of 06/19/2024 - insulin aspart U-100 (NOVOLOG FLEXPEN U-100 INSULIN) 100 unit/mL (3 mL) Take 8 units with breakfast, 4 units with lunch, and 6 units with dinner. Fiasp not currently available at pharmacy. - insulin aspart, niacinamide, (FIASP FLEXTOUCH U-100 INSULIN) 100 unit/mL (3 mL) pen Inject 8 Units subcutaneously daily with breakfast AND 4 Units daily with lunch AND 6 Units daily with dinner. Will switch from Novolog to Fiasp in 2023. HOLD LUNCH TIME INSULIN FOR NOW. - allopurinol (ZYLOPRIM) 100 mg tablet Take 1 tablet by mouth once daily. - clopidogrel (PLAVIX) 75 mg tablet Take 1 tablet by mouth once daily. - dapagliflozin propanediol (FARXIGA) 5 mg tablet Take 1 tablet by mouth daily with breakfast. - carbamide peroxide (DEBROX) 6.5 % otic [...] glucose 3 times daily Insulin Yes - amLODIPine (NORVASC) 10 mg tablet Take 1 tablet by mouth once daily. Dose change, take 1 daily - metoprolol succinate ER (TOPROL XL) 100 mg Take 1 tablet by mouth once daily. - rosuvastatin (CRESTOR) 5 mg tablet take 1 tablet by mouth once daily as directed - losartan (COZAAR) 50 mg tablet take 1 tablet by mouth once daily - insulin glargine (BASAGLAR KWIKPEN U-100 INSULIN) 100 unit/mL (3 mL) Inject 14 Units subcutaneously daily at bedtime. - Insulin [place], Disposable, (BD ULTRA-FINE JOHN PEN NEEDLE) 32 gauge x Use one needle for each dose. 1x/day. - Cholecalciferol, Vitamin D3, 25 mcg (1,000 unit) cap Take 1 capsule by mouth once daily. (1000 to 2000 IU daily fine) - aspirin 81 mg chewable tablet Take 1 tablet by mouth once daily (more content not included)... Normal [facility] ALBUMIN/CREAT RATIO RND URon 08-25-2023 Albumin DL <= 20 mg/L (U) [Mass/Vol] 2962.6 mg/L [facility] Albumin/Creatinine (U) [Mass ratio] 2190 mg/g High <30 mg/g [facility] Creatinine (U) [Mass/Vol] 135.3 mg/dL 20.0 - 300.0 mg/dL [facility] VITAMIN D 25 HYDROXYon 08-25 25-hydroxyvitamin D3 [Mass/Vol] 38.2 ng/mL 31.0 - 80.0 ng/mL [facility] CBC panel Auto (Bld)on 08-24 Erythrocyte distribution width (RBC) [Ratio] 13.8 % 11.5 - 15.0 % [facility] Hematocrit (Bld) [Volume fraction] 38.4 % 36.0 - 46.0 % [facility] Hemoglobin (Bld) [Mass/Vol] 12.4 g/dL 11.5 - 15.5 g/dL [facility] MCH (RBC) [Entitic mass] 30.1 pg 26.0 - 34.0 pg [facility] MCHC (RBC) [Mass/Vol] 32.3 g/dL 30.5 - 36.0 g/dL [facility] MCV (RBC) [Entitic vol] 93.2 fL 80.0 - 100.0 fL [facility] Nucleated RBC (Bld) [#/Vol] <0.01 k/uL [facility] Platelet mean volume (Bld) [Entitic vol] 11.0 fL 9.0 - 12.7 fL [facility] Platelets (Bld) [#/Vol] 263 10*3/uL 150 - 400 k/uL [facility] RBC (Bld) [#/Vol] 4.12 10*6/uL 3.90 - 5.2 0 m/uL [facility] WBC (Bld) [#/Vol] 10.64 10*3/uL 3.70 - 11 .00 k/uL [facility] Comprehensive metabolic 2000 panelon 08-24-2023 Albumin [Mass/Vol] 4.0 g/dL 3.9 - 4.9 g/dL [facility] ALP [Catalytic activity/Vol] 99 U/L 34 - 123 U/L [facility] ALT [Catalytic activity/Vol] 15 U/L 7 - 38 U/L [facility] Anion gap [Moles/Vol] 13 mmol/L 9 - 18 mmol/L [facility] AST [Catalytic activity/Vol] 16 U/L 13 - 35 U/L [facility] Bilirubin [Mass/Vol] 0.2 mg/dL 0.2 - 1 .3 mg/dL [facility] Calcium [Mass/Vol] 9.1 mg/dL 8.5 - 10. 2 mg/dL [facility] Chloride [Moles/Vol] 104 mmol/L 97 - 10 5 mmol/L [facility] CO2 [Moles/Vol] 20 mmol/L Low 22 - 30 mmol/L [facility] Creatinine [Mass/Vol] 1.75 mg/dL High 0.58 - 0.96 mg/dL [facility] Estimated Glomerular Filtration Rate 28 mL/min/1.73m Low >=60 mL/min/1.73m [facility] Glucose [Mass/Vol] 158 mg/dL High 74 - 99 mg/dL [facility] Potassium [Moles/Vol] 4.1 mmol/L 3.7 - 5.1 mmol/L [facility] Protein [Mass/Vol] 6.4 g/dL 6.3 - 8.0 g/dL [facility] Sodium [Moles/Vol] 137 mmol/L 136 - 144 mmol/L [facility] Urea nitrogen [Mass/Vol] 39 mg/dL High 7 - 21 mg/dL [facility] HbA1c (Bld)on 08-24-2023 Average glucose Estimated from glycated hemoglobin (Bld) [Mass/Vol] 177 mg/dL [facility] HbA1c (Bld) [Mass fraction] 7.8 % High 4.3 - 5.6 % [facility] URIC ACID BLOODon 08-24-2023 Urate [Mass/Vol] 6.5 mg/dL 2.5 - 6.6 mg/dL [facility] Basophil percentageon 2021 Creatinine [Mass/Vol] 1.3 mg/dL 0.55-1.02 [facility] Work Phone: Laboratory - Chemistry and C hemistry - challengeon 07-24-2022 GFR/1.73 sq M.predicted among non-blacks MDRD (S/P/Bld) [Vol rate/Area] 41.0000 mL/min/{1.73_m2} >60 [facility] Work Phone: Cytology report of Body flui d Cyto stainon 06-28-2022 Cytology report Cyto stain Doc (Body fld) SEE PATHOLOGY REPORT [facility] Work Phone: Comment on above: Specimen submitted t o Anatomical Pathology Department for testing. UA DIP, URINE (POC)on 2021 BILIRUBIN UA (POCT) Negative Negative [facility] CLARITY UA (POCT) Slightly Cloudy Cl [facility] COLOR UA (POCT) Other [facility] GLUCOSE UA (POCT) 500 mg/dL Abnormal Negative mg/dL [facility] HEMOGLOBIN/BLOOD UA (POCT) Large Abnormal Negative [facility] KETONE UA (POCT) Negative Negative mg/dL [facility] LEUKOCYTES UA (POCT) Small Abnormal Negative [facility] NITRITE UA (POCT) Negative Negative [facility] PH UA (POCT) 6.0 4.5 - 8.0 [facility] Protein Ql (U) >=300 Abnormal Negative mg/dL [facility] SPECIFIC GRAVITY UA (POCT) 1.020 1.005 - 1.030 [facility] UROBILINOGEN UA (POCT) 0.2 E.U./dL Tricia l E.U./dL [facility] OBSOLETEon 04-25-2020 OBSOLETE Refill ([facility]) CONCHA WOODWARD I ([id number]) 1935 F Date Time Provider Department 04/25/20 MELISA REZA (FAMILY INTERVENTION SPECIALIST, LENS GRINDER ROUGH) [facility] During your visit today, we recorded the following information about you: Allergies As of Date: 04/25/2020 Noted Allergy Reaction BACTRIM (SULFAMETHOXAZOLE-TRIME TH*06/10/2008 11 - Vomiting CODEINE 08/31/2005 11 - Vomiting PREDNISONE 09/05/2012 11 - Vomiting STATINS ([id number]-UBV-[id number] REDUCTAS*05/25/2009 5 - Intolerance ULTRAM (TRAMADOL HCL) 01/17/2013 11 - Vomiting Date Reviewed: 01/17/2020 Reviewed by: Laurel Escamilla RN - Fully Assessed Reason for Visit: Refill Request [94] Order(s):atorvastatin (LIPITOR) 40 mg tablettake 1/2 tablet by mouth at bedtimeDisp: 45 tabletRfl: 3 Prescriptions as of 04/25/2020 Sig: ATORVASTATIN 40 MG TABLET take 1/2 tablet by mouth at b* TRAZODONE 50 MG TABLET Take 1 tablet by mouth daily * AMLODIPINE 5 MG TABLET Take 1 tablet by mouth once d* METOPROLOL SUCCINATE ER 100 M* Take 1 tablet by mouth once d* INSULIN ASPART (U-100) 100 UN* Take 12 units breakfast, 6 un* PROCHLORPERAZINE MALEATE 5 MG* Take 5 mg by mouth as needed. BASAGLAR KWIKPEN U-100 INSULI* Inject 11 Units subcutaneousl* ASPIRIN 81 MG CHEWABLE TABLET Take 1 tablet by mouth once d* SYSTANE NIGHTTIME 94 %-3 % EY* Use 1 application in both eye* ALLOPURINOL 100 MG TABLET Take 1 tablet by mouth once d* CLOPIDOGREL 75 MG TABLET Take 1 tablet by mouth once d* RESTASIS 0.05 % EYE DROPS IN * Use 1 Drop in both eyes twice* CALCIUM CARBONATE 600 MG (1,5* Take 1 tablet by mouth once d* X CONTOUR TEST STRIPS Test Blood sugar once daily 2* Problem List As Of Date 04/25/2020 Noted Resolved Unspecified cardiovascular disease [I25.10] 03/21/2017 More... Hypertension goal BP (blood pressure) < 150/90 * More... DIABETES MELLITUS TYPE II UNCONTR UNCOMPL [IMO0* 12/26/2008 Pure hypercholesterolemia [E78.00] More... Osteopenia [M89.9, M94.9] 05/20/2007 More... ABDOMINAL PAIN UNSPEC SITE [R10.9] 08/06/2007 12/26/2008 Leiomyoma of uterus, unspecified [D25.9] 11/04/2007 03/21/2017 Mucous polyp of cervix [N84.1] 11/04/2007 02/22/2015 DIABETES TYPE II W NEURO MANIFESTATIONS [E11.49]12/24/2008 08/25/2014 Dermatophytosis of nail [B35.1] 12/24/2008 02/22/2015 Labyrinthine dysfunction, unspecified [H83.2X9] 12/26/2008 02/22/2015 More... Benign neoplasm of cerebral meninges (HCC) [D32*12/26/2008 02/11/2020 More... Urgency of urination [R39.15] 08/19/2009 02/22/2015 Postmenopausal atrophic vaginitis [N95.2] 08/19/2009 02/22/2015 Eustachian tube dysfunction [H69.80] 08/30/2009 02/22/2015 More... Diverticulosis [K57.90] 08/16/2012 02/22/2015 History of gout [Z87.39] 02/25/2013 Occipital neuralgia [M54.81] 02/25/2013 02/22/2015 Abnormal mammogram, unspecified [R92.8] 08/19/2013 02/22/2015 Hyperlipemia [E78.5] 10/20/2013 10/23/2015 Meningioma [D32.9] 10/20/2013 02/22/2015 More... Type 2 diabetes mellitus with stage 3 chronic k*08/25/2014 History of CVA (cerebrovascular accident) [Z86.*08/25/2014 More... BCC (basal cell carcinoma), arm [C44.611] 05/25/2016 03/21/2017 More... Hyperuricemia [E79.0] 01/05/2018 Diarrhea, unspecified [R19.7] 04/28/2019 ACS (acute coronary syndrome) (HCC) [I24.9] 01/03/2020 02/11/2020 S/P CABG x 4 [Z95.1] 01/09/2020 Prescriptions ordered this encounter Disp Refills Start End ATORVASTATIN 40 MG TABLET 45 t* 3 04/26/2020 Sig: take 1/2 tablet by mouth at bedtime Medications Discontinued During This Encounter atorvastatin (LIPITOR) 40 mg tablet 15 t* 2 04/22/2020 04/26/2020 Route: ORAL Sig: Take 0.5 tablets by mouth daily at bedtime. Disc: Reason for discontinue is not on file. Encounter Status:Closed by YUNG MARSHALL CNP on 04/26/20 [facility] OBSOLETEon 03-24-2020 OBSOLETE Refill ([facility]VASACC) CONCHA WOODWARD I ([id number]) 1935 F Date Time Provider Department 03/24/20 MELISA REZA (FAMILY INTERVENTION SPECIALIST, LENS GRINDER ROUGH) AGVASACC During your visit today, we recorded the following information about you: Allergies As of Date: 03/24/2020 Noted Allergy Reaction BACTRIM (SULFAMETHOXAZOLE-TRIME TH*06/10/2008 11 - Vomiting CODEINE 08/31/2005 11 - Vomiting PREDNISONE 09/05/2012 11 - Vomiting STATINS ([id number]-RPR REDUCTAS*05/25/2009 5 - Intolerance ULTRAM (TRAMADOL HCL) 01/17/2013 11 - Vomiting Date Reviewed: 01/17/2020 Reviewed by: Laurel Escamilla RN - Fully Assessed Reason for Visit: Refill Request [94] Prescriptions as of 03/24/2020 Sig: METOPROLOL SUCCINATE ER 100 M* Take 1 tablet by mouth once d* TRAZODONE 50 MG TABLET Take 1 tablet by mouth daily * INSULIN ASPART (U-100) 100 UN* Take 12 units breakfast, 6 un* PROCHLORPERAZINE MALEATE 5 MG* Take 5 mg by mouth as needed. BASAGLAR KWIKPEN U-100 INSULI* Inject 11 Units subcutaneousl* ATORVASTATIN 40 MG TABLET Take 0.5 tablets by mouth berny* AMLODIPINE 5 MG TABLET Take 1 tablet by mouth once d* ASPIRIN 81 MG CHEWABLE TABLET Take 1 tablet by mouth once d* SYSTANE NIGHTTIME 94 %-3 % EY* Use 1 application in both eye* ALLOPURINOL 100 MG TABLET Take 1 tablet by mouth once d* CLOPIDOGREL 75 MG TABLET Take 1 tablet by mouth once d* RESTASIS 0.05 % EYE DROPS IN * Use 1 Drop in both eyes twice* CALCIUM CARBONATE 600 MG (1,5* Take 1 tablet by mouth once d* X CONTOUR TEST STRIPS Test Blood sugar once daily 2* Problem List As Of Date 03/24/2020 Noted Resolved Unspecified cardiovascular disease [I25.10] 03/21/2017 More... Hypertension goal BP (blood pressure) < 150/90 * More... DIABETES MELLITUS TYPE II UNCONTR UNCOMPL [IMO0* 12/26/2008 Pure hypercholesterolemia [E78.00] More... Osteopenia [M89.9, M94.9] 05/20/2007 More... ABDOMINAL PAIN UNSPEC SITE [R10.9] 08/06/2007 12/26/2008 Leiomyoma of uterus, unspecified [D25.9] 11/04/2007 03/21/2017 Mucous polyp of cervix [N84.1] 11/04/2007 02/22/2015 DIABETES TYPE II W NEURO MANIFESTATIONS [E11.49]12/24/2008 08/25/2014 Dermatophytosis of nail [B35.1] 12/24/2008 02/22/2015 Labyrinthine dysfunction, unspecified [H83.2X9] 12/26/2008 02/22/2015 More... Benign neoplasm of cerebral meninges (HCC) [D32*12/26/2008 02/11/2020 More... Urgency of urination [R39.15] 08/19/2009 02/22/2015 Postmenopausal atrophic vaginitis [N95.2] 08/19/2009 02/22/2015 Eustachian tube dysfunction [H69.80] 08/30/2009 02/22/2015 More... Diverticulosis [K57.90] 08/16/2012 02/22/2015 History of gout [Z87.39] 02/25/2013 Occipital neuralgia [M54.81] 02/25/2013 02/22/2015 Abnormal mammogram, unspecified [R92.8] 08/19/2013 02/22/2015 Hyperlipemia [E78.5] 10/20/2013 10/23/2015 Meningioma [D32.9] 10/20/2013 02/22/2015 More... Type 2 diabetes mellitus with stage 3 chronic k*08/25/2014 History of CVA (cerebrovascular accident) [Z86.*08/25/2014 More... BCC (basal cell carcinoma), arm [C44.611] 05/25/2016 03/21/2017 More... Hyperuricemia [E79.0] 01/05/2018 Diarrhea, unspecified [R19.7] 04/28/2019 ACS (acute coronary syndrome) (HCC) [I24.9] 01/03/2020 02/11/2020 S/P CABG x 4 [Z95.1] 01/09/2020 Encounter Status:Closed by MELISA REZA CNP on 03/24/20 [facility] PROGRESSon 03-01-2020 PROGRESS HNO ID: [id number] Author: Erin (Alcira Das) THIAGO Lanier Service: ? Author Type: Nurse Practitioner Type: Progress Notes Filed: 03/01/2020 2:05 PM Note Text: [facility] Department of Cardiovascular Medicine Virtual Video Visit ESTABLISHED Date: 03/01/2020 Patient: Concha Woodward : 1935 This is a virtual video visit. It required patient-provider interaction for the medical decision making as documented below. Concha Woodward has consented to this telephone encounter. HPI: Concha Woodward is a 84 year old female with PMHx of CAD (status post angioplasty 30 years ago), DM, hypertension, hyper lipids, remote CVA with left-sided weakness, CKD (baseline creatinine 1.4-1.5) seen for an STEMI, CHF now status post CABG ?4 (GHOSH to LAD to diagonal sequentially, SVG to OM, SVG to RPL, EVH) performed 01/09/[address] Rivera. Her postoperative recovery was located by acute on chronic kidney injury, atrial fibrillation with RVR (no OAC) and discharged to [facility] acute rehabilitation and finally home. PAST HISTORY REVIEWED: PAST MEDICAL HISTORY Diagnosis Date - Abdominal pain, left lower quadrant - Abdominal pain, right lower quadrant - Benign neoplasm of cerebral meninges (HCC) 12/26/2008 Neuro Referral: Daija Alfonso, 10/19/08, Dx: A incidental ventromedial foramen magnum meningioma, 1.2cm, with no surrounding neural compression. - CAD (coronary artery disease) - Diverticulosis of colon (without mention of hemorrhage) - Female stress incontinence 2008 Stress incontinence Very mild - Gout - Internal hemorrhoids without mention of complication - Labyrinthine dysfunction, unspecified 12/26/200810/13 -Seeing ENT, Vestibular Retraining via PT - Other and unspecified hyperlipidemia - Other specified cardiac dysrhythmias(427.89) TACHYCARDIA (SEE ALSO ARRHYTHMIA) SINUS - Pure hypercholesterolemia - S/P CABG x 3 01/09/2020 @ [facility] by Dr. Rivera - Stroke (cerebrum) ([facility]) 2013 - Type II or unspecified type diabetes mellitus without mention of complication, uncontrolled - Unspecified cardiovascular disease - Unspecified essential hypertension - Urgency of urination 2008 PAST SURGICAL HISTORY Procedure Laterality Date - ANGIOPLASTY 1988 - CABG (3) VEIN GRAFTS AND ARTERIAL GRAFT(S) 01/09/2020 @ [facility] by Dr. Rivera - COLONOSCOP W/ OR W/O BRSH SPEC 08/29/07 - LAPAROSCOPIC CHOLEYCYSTECTOMY Cholecystectomy, lap [...] Alcohol use: No - Drug use: No Current Outpatient Medications Medication Sig - metoprolol succinate ER (TOPROL XL) 100 mg Take 1 tablet by mouth once daily. - traZODone (DESYREL) 50 mg tablet Take 1 tablet by mouth daily at bedtime. - insulin aspart U-100 (NOVOLOG FLEXPEN U-100 INSULIN) 100 unit/mL (3 mL) Take 12 units breakfast, 6 units lunch, and 10 units dinner - prochlorperazine (COMPAZINE) 5 mg tablet Take 5 mg by mouth as needed. - insulin glargine (BASAGLAR KWIKPEN U-100 INSULIN) 100 unit/mL (3 mL) Inject 11 Units subcutaneously every morning. - atorvastatin (LIPITOR) 40 mg tablet Take 0.5 tablets by mouth daily at bedtime. - amLODIPine (NORVASC) 5 mg tablet Take 1 tablet by mouth once daily. - aspirin 81 mg chewable tablet Take 1 tablet by mouth once daily. - white petrolatum-mineral oil (SYSTANE NIGHTTIME) 94-3 % ophthalmic ointment Use 1 application in both eyes daily at bedtime. - allopurinol (ZYLOPRIM) 100 mg tablet Take 1 tablet by mouth once daily. - clopidogrel (PLAVIX) 75 mg tablet Take 1 tablet by mouth once daily. - RESTASIS 0.05 % ophthalmic emulsion Use 1 Drop in both eyes twice daily. - [place]-3 Fatty Acids 1,250 mg cap Take 1 capsule by mouth once daily. - calcium carbonate 600 mg-cholecalciferol 400 units (CALCIUM 600 + D) 600 mg(1,500mg) -400 unit tab Take 1 tablet by mouth once daily. No current facility-administered medications for this visit. ALLERGIES Allergen Reactions - Bactrim [Sulfametho* Vomiting - Codeine Vomiting - Prednisone Vomiting - Statins [Statins-Hm* Intolerance - Ultram [Tramadol Hc* Vomiting REVIEW OF SYSTEMS: Today, Concha Woodward, reports She was released from home care today. All is normal except for right ankle remains swollens Pain: Denie CV: (Dizzy, palpitations, BP, Edema) 118/62, HR regular SOB/MURRAY: Denies Fever: Denies Incisions: Healed Weight: 163 and stable (reports baseline 165 lbs) Diet: Improving appetitie Bowel: Normal Activity: Gradually increasing C/O: None Cardiology F/U: Dr Noel at [facility] Scheduled 03/03 Cardiac Rehab: Ordered previously and may begin when ready PHYSICAL EXAMINATION: VIDEO EXAM: (if completed, performed via video enabled technology) N/A for telephone visit ASSESSMENT: Ms. Woodward is a 84 year old female status post CABG ?4, recovering quite well. She is to follow-up with her mail room clerk as scheduled. She may begin cardiac rehabilitation when available following the Covid pandemic. She may drive, gradually increase her weightbearing exercises. PLAN: ASSESSMENT/PLAN: 1. S/P CABG x 4 - ICD9: V45.81, ICD10: Z95.1 -Continue medical therapy with aspirin 81 mg, Plavix 75 mg, metoprolol XL 100 mg daily, atorvastatin 20 mg -Follow-up with cardiology as scheduled -May drive -May begin cardiac rehabilitation when available Erin Lanier APRN.THIAGO I spent (Est Level 3) 13-19 minutes in total time involved in the care of this patient. Erin Lanier APRN.THIAGO March 01, 2020 1:02 PM Normal [facility] Jillian 02-20-2020 CNPN Telephone (AGVASACC) CONCHA WOODWARD I ([id number]) 1935 F Date Time Provider Department 02/20/20 ERIN LANIER (FAMILY INTERVENTION SPECIALIST, LENS GRINDER ROUGH) AGVASACC During your visit today, we recorded the following information about you: Galilea Calderón 02/20/2020 2:23 PM Signed LM for patient to schedule appointment 1 month post op CABG with erin. This week or next is okay for a VV. Allergies As of Date: 02/20/2020 Noted Allergy Reaction BACTRIM (SULFAMETHOXAZOLE-TRIME TH*06/10/2008 11 - Vomiting CODEINE 08/31/2005 11 - Vomiting PREDNISONE 09/05/2012 11 - Vomiting STATINS (GFRMOCH-DNE-PFK REDUCTAS*05/25/2009 5 - Intolerance ULTRAM (TRAMADOL HCL) 01/17/2013 11 - Vomiting Date Reviewed: 01/17/2020 Reviewed by: Laurel Escamilla RN - Fully Assessed Reason for Visit: Appointment [186] Cmt: lm for patient to set up appt Prescriptions as of 02/20/2020 Sig: INSULIN ASPART (U-100) 100 UN* Take 12 units breakfast, 6 un* PROCHLORPERAZINE MALEATE 5 MG* Take 5 mg by mouth as needed. BASAGLAR KWIKPEN U-100 INSULI* Inject 11 Units subcutaneousl* ATORVASTATIN 40 MG TABLET Take 0.5 tablets by mouth berny* AMLODIPINE 5 MG TABLET Take 1 tablet by mouth once d* ASPIRIN 81 MG CHEWABLE TABLET Take 1 tablet by mouth once d* METOPROLOL SUCCINATE ER 100 M* Take 1 tablet by mouth once d* SYSTANE NIGHTTIME 94 %-3 % EY* Use 1 application in both eye* ALLOPURINOL 100 MG TABLET Take 1 tablet by mouth once d* CLOPIDOGREL 75 MG TABLET Take 1 tablet by mouth once d* RESTASIS 0.05 % EYE DROPS IN * Use 1 Drop in both eyes twice* [place]-3 FATTY ACIDS 1,250 MG * Take 1 capsule by mouth once * CALCIUM CARBONATE 600 MG (1,5* Take 1 tablet by mouth once d* X CONTOUR TEST STRIPS Test Blood sugar once daily 2* Problem List As Of Date 02/20/2020 Noted Resolved Unspecified cardiovascular disease [I25.10] 03/21/2017 More... Hypertension goal BP (blood pressure) < 150/90 * More... DIABETES MELLITUS TYPE II UNCONTR UNCOMPL [IMO0* 12/26/2008 Pure hypercholesterolemia [E78.00] More... Osteopenia [M89.9, M94.9] 05/20/2007 More... ABDOMINAL PAIN UNSPEC SITE [R10.9] 08/06/2007 12/26/2008 Leiomyoma of uterus, unspecified [D25.9] 11/04/2007 03/21/2017 Mucous polyp of cervix [N84.1] 11/04/2007 02/22/2015 DIABETES TYPE II W NEURO MANIFESTATIONS [E11.49]12/24/2008 08/25/2014 Dermatophytosis of nail [B35.1] 12/24/2008 02/22/2015 Labyrinthine dysfunction, unspecified [H83.2X9] 12/26/2008 02/22/2015 More... Benign neoplasm of cerebral meninges (HCC) [D32*12/26/2008 02/11/2020 More... Urgency of urination [R39.15] 08/19/2009 02/22/2015 Postmenopausal atrophic vaginitis [N95.2] 08/19/2009 02/22/2015 Eustachian tube dysfunction [H69.80] 08/30/2009 02/22/2015 More... Diverticulosis [K57.90] 08/16/2012 02/22/2015 History of gout [Z87.39] 02/25/2013 Occipital neuralgia [M54.81] 02/25/2013 02/22/2015 Abnormal mammogram, unspecified [R92.8] 08/19/2013 02/22/2015 Hyperlipemia [E78.5] 10/20/2013 10/23/2015 Meningioma [D32.9] 10/20/2013 02/22/2015 More... Type 2 diabetes mellitus with stage 3 chronic k*08/25/2014 History of CVA (cerebrovascular accident) [Z86.*08/25/2014 More... BCC (basal cell carcinoma), arm [C44.611] 05/25/2016 03/21/2017 More... Hyperuricemia [E79.0] 01/05/2018 Diarrhea, unspecified [R19.7] 04/28/2019 ACS (acute coronary syndrome) (HCC) [I24.9] 01/03/2020 02/11/2020 S/P CABG x 4 [Z95.1] 01/09/2020 Encounter Status:Closed by GALILEA CALDERÓN on 02/20/20 [facility] PROGRESSon 02-02-2020 PROGRESS HNO ID: [id number] Author: Melisa (Car Repair Supervisor Thiago) THIAGO Reza Service: ? Author Type: Nurse Practitioner Type: Progress Notes Filed: 02/02/2020 2:44 PM Note Text: [facility] Department of Cardiovascular Medicine Virtual Visit Date: 02/02/2020 Patient: Concha Woodward : 1935 This is a virtual visit. It required patient-provider interaction for the medical decision making as documented below. Concha Woodward is a 84 year old female that returnsvirtually today for one week post-discharge follow up for NSTEMI s/p CABG x 4 (ghosh-lad sequenced with diag; svg-om, rpl; evh) performed on 01/09/[address] Rivera. Her post-operative course was complicated by acute on chronic kidney injury, atrial fibrillation with RVR on amiodarone, metoprolol. Patient was discharged on 01/16 to [place] [facility] and was discharged home on 01/29. Interval events: no home recovery as listed below: Episodes of dizziness or syncope: no Chest pain: no Palpitations: no BP: reviewed per home log: SBP 130s, not sure about HR Tolerating diet well without changing bowel habits: appetite is coming back slowed. Fever, chills: no Activities at home without SOB or MURRAY: walks about 5 minutes x 2 a day. Post surgical pain without pain medications . Leg edema: not bad Sleep: improving Energy: very little HISTORY REVIEWED (electronic chart updated): PAST MEDICAL HISTORY Diagnosis Date - Abdominal pain, left lower quadrant - Abdominal pain, right lower quadrant - Benign neoplasm of cerebral meninges (HCC) 12/26/2008 Neuro Referral: Daija Alfonso, 10/19/08, Dx: A incidental ventromedial foramen magnum meningioma, 1.2cm, with no surrounding neural compression. - CAD (coronary artery disease) - Diverticulosis of colon (without mention of hemorrhage) - Female stress incontinence 2008 Stress incontinence Very mild - Gout - Internal hemorrhoids without mention of complication - Labyrinthine dysfunction, unspecified 12/26/200810/13 -Seeing ENT, Vestibular Retraining via PT - Other and unspecified hyperlipidemia - Other specified cardiac dysrhythmias(427.89) TACHYCARDIA (SEE ALSO ARRHYTHMIA) SINUS - Pure hypercholesterolemia - S/P CABG x 3 01/09/2020 @ [facility] by Dr. Rivera - Stroke (cerebrum) ([facility]) 2013 - Type II or unspecified type diabetes mellitus without mention of complication, uncontrolled - Unspecified cardiovascular disease - Unspecified essential hypertension - Urgency of urination 2008 PAST SURGICAL HISTORY Procedure Laterality Date - ANGIOPLASTY 1988 - CABG (3) VEIN GRAFTS AND ARTERIAL GRAFT(S) 01/09/2020 @ [facility] by Dr. Rivera - COLONOSCOP W/ OR W/O [facility] SPEC 08/29/07 - LAPAROSCOPIC CHOLEYCYSTECTOMY Cholecystectomy, lap [...] Alcohol use: No - Drug use: No Current Outpatient Medications Medication Sig - amLODIPine (NORVASC) 5 mg tablet Take 1 tablet by mouth once daily. - acetaminophen (TYLENOL) 500 mg tablet 2 tablets by ORAL/FEEDING TUBE route every 6 hours. - albuterol (PROVENTIL) 2.5 mg /3 mL (0.083 %) nebulizer solution Use 3 mL via nebulizer every 4 hours as needed for Wheezing/Shortness of Breath. - amiodarone (PACERONE) 200 mg tablet Take 1 tablet by mouth once daily for 14 doses. - aspirin 81 mg chewable tablet Take 1 tablet by mouth once daily. - atorvastatin (LIPITOR) 40 mg tablet Take 1 tablet by mouth daily at bedtime. - dextrose 40 % gel Take 15 g by mouth as needed. - guaiFENesin (MUCINEX) 600 mg 12 hr tablet Take 1 tablet by mouth twice daily as needed for Cold/Allergy Symptoms. - lidocaine (SALONPAS) 4 % patch Apply 1 Patch as directed once daily. - magnesium oxide (MAG-OX) 400 mg (241.3 mg magnesium) tablet Take 1 tablet by mouth once daily. - melatonin 3 mg tablet Take 1 tablet by mouth at bedtime as needed (insomnia). - metoprolol succinate ER (TOPROL XL) 100 mg Take 1 tablet by mouth once daily. - polyethylene glycol 3350 (MIRALAX, GLYCOLAX) 17 gram packet Take 1 Packet by mouth once daily as needed. - senna-docusate (SENNA-S) 8.6-50 mg per tablet Take 2 tablets by mouth twice daily. - torsemide (DEMADEX) 10 mg tablet Take 1 tablet by mouth once daily. - white petrolatum-mineral oil (SYSTANE NIGHTTIME) 94-3 % ophthalmic ointment Use 1 application in both eyes daily at bedtime. - insulin glargine (BASAGLAR KWIKPEN U-100 INSULIN) 100 unit/mL (3 mL) inpn Inject 11 Units subcutaneously every morning. - allopurinol (ZYLOPRIM) 100 mg tablet Take 1 tablet by mouth once daily. - clopidogrel (PLAVIX) 75 mg tablet Take 1 tablet by mouth once daily. - insulin aspart U-100 (NOVOLOG FLEXPEN U-100 INSULIN) 100 unit/mL (3 mL) inpn Take 8 units breakfast, 6 units lunch, and 8 units dinner - RESTASIS 0.05 % ophthalmic emulsion Use 1 Drop in both eyes twice daily. - [place]-3 Fatty Acids 1,250 mg cap Take 1 capsule by mouth once daily. - calcium carbonate 600 mg-cholecalciferol 400 units (CALCIUM 600 + D) 600 mg(1,500mg) -400 unit tab Take 1 tablet by mouth once daily. No current facility-administered medications for this visit. ALLERGIES Allergen Reactions - Bactrim [Sulfametho* Vomiting - Codeine Vomiting - Prednisone Vomiting - Statins [Statins-Hm* Intolerance - Ultram [Tramadol Hc* Vomiting Review of Systems Constitutional: Negative for chills, fever, malaise/fatigue and weight loss. HENT: Negative for sore throat. Respiratory: Negative for cough, sputum production, shortness of breath and wheezing. Cardiovascular: Negative for chest pain, palpitations, orthopnea, claudication, leg swelling and PND. Gastrointestinal: Negative for abdominal pain, blood in stool, constipation, diarrhea, melena, nausea and vomiting. Genitourinary: Negative for dysuria. Musculoskeletal: Negative for falls and joint pain. Skin: No new lesions Neurological: Negative for dizziness, tingling, sensory change, focal weakness, weakness and headaches. Endo/Heme/Allergies: Does not bruise/bleed easily. Psychiatric/Behavioral: Negative for depression. Objective: Physical Examination: Vitals:There were no vitals taken for this visit. Last 2 Encounter Wt Readings: Date: Wt: 01/03/2020 176 lb 12.8 oz (80.2 kg) 12/30/2019 164 lb (74.4 kg) Physical Exam Pulmonary/Chest: Per patient, no sternal movement notice. Skin: Per patient, incisions looks good: no signs of infection( redness, swelling, drainage). Assessment and Plan: ASSESSMENT/PLAN: 1. S/P CABG x 4 - ICD9: V45.81, ICD10: Z95.1 (primary diagnosis) -c/w aspirin 81, Plavix 75 mg, atorvastatin 40(patient prefer to decrease to 20 mg due to intolerance in the past), metoprolol XR 100 mg - continue home recovery - telephone follow up in 2 weeks to check recovery, patient agreed. 2. Atrial fibrillation, unspecified type (HCC) - ICD9: 427.31, ICD10: I48.91 - Has completed amiodarone 200 mg daily ?2 weeks -Continue metoprolol XR 100 mg daily -Has not needed OAC since in NSR - c/w Plavix for history of CVA 3. SHA (acute kidney injury) (HCC) - ICD9: 584.9, ICD10: N17.9 - stable -f/u with PCP Pot Pusher follow up appointment: Dr. Noel in 4-6 week. PCP follow up appointment: Dr. Pearce in 4-6 weeks. In summary, Concha Woodward is a 84 year old female that returnsvirtually today for one week post-discharge follow up for NSTEMI s/p CABG x 4 (ghosh-lad sequenced with diag; svg-om, rpl; evh) performed on 01/09/[address] Rivera. Her post-operative course was complicated by acute on chronic kidney injury, atrial fibrillation with RVR on amiodarone, metoprolol. Patient is doing well overall after the MCABG sugery, with no major complaints. We would like to have patient follow up with the telephone encounter in 2 weeks weeks, we would also like to discuss about starting cardiac rehab at the next visit. Melisa Reza APRN.[employer] February 02, 2020 1:53 PM Normal [facility] Basic Panelon 01-17-2020 Creatinine [Mass/Vol] 1.61 mg/dL High 0.51-0.95 [facility] Comment on above: Result Comment: Use of this assay is not recommended for patients undergoing treatment with phenindione, due to the potential for falsely depressed results. Performed By: #### G LMET #### [address] [address] Anion gap [Moles/Vol] 11 mmol/L Normal 8-16 [facility] Comment on above: Performed By: #### G LMET #### [address] [address] Calcium [Mass/Vol] 8.7 mg/dL Normal 8.5-10.1 [facility] Comment on above: Performed By: #### G LMET #### [facility] [address] [place], [place] [address] CO2 [Moles/Vol] 21 mmol/L Normal 21-32 [facility] Comment on above: Performed By: #### G LMET #### [address] [address] Glucose [Mass/Vol] 118 mg/dL High 70-99 [facility] Comment on above: Performed By: #### G LMET #### [address] [place], [place] [address] Urea nitrogen [Mass/Vol] 35 mg/dL High 7-18 [facility] Comment on above: Performed By: #### G LMET #### [facility] [address] [place], [place] [address] Chloride [Moles/Vol] 109 mmol/L High 98-107 [facility] Comment on above: Performed By: #### G LMET #### [facility] [address] [place], [place] [address] Potassium [Moles/Vol] 3.8 mmol/L Normal 3.5-5.1 [facility] Comment on above: Performed By: #### G LMET #### [facility] [address] [place], [place] [address] Sodium [Moles/Vol] 137 mmol/L Normal 136-145 [facility] Comment on above: Performed By: #### G LMET #### [facility] [address] [place], [place] [address] CONSULT PROGon 01-17-2020 CONSULT PROG HNO ID: [id number] Author: Eileen Jones Service: Endocrinology Author Type: Physician Type: Consult Progress Note Filed: 01/17/2020 8:14 AM Note Text: ENDOCRINOLOGY CONSULT PROGRESS NOTE SERVICE DATE: 01/17/2020 SERVICE TIME: 7:50 AM Subjective INTERVAL HPI: followed for DM type 2, on insulin MDI; can not tolerate metformin due to diarrhea; has CAD; s/p CABG. 01/09/2020 She was admitted to [facility] with chest pain and was found to have coronary artery disease. Patient has history of angioplasty 30 years ago. ?H/o CAD and remote FL now admitted with NSTEMI who is found to have severe MV CAD and ischemic CM with EF 30%, no CHF, in a setting of DM, HTN, HLD, CKD, remote CVA. Regarding diabetes, patient has history of type 2 diabetes for about 5 years. At home, patient takes Basaglar 9 units every morning and she takes NovoLog 8 units for breakfast and dinner and 6 units for lunch. Her A1c was 7.6 on December 25, now her A1c is 8.4. s/p CABG was on IV insulin gtt per CABG protocol now off; off of pressors; better po intake. Tr to floor on 01/12. Eating fruit ice/ice cream off and on, not taking Boost! D/C plan to rehab today. DIET HEART HEALTHY Recent Labs 01/17/20 0739 01/17/20 0520 01/16/20 2204 01/16/20 1704 01/16/20 0406 01/15/20 0940 GLUC -- 118* -- -- -- 151* -- 300* GLUCOSEMETER 147* -- 139* 101* < > -- < > -- < > = values in this interval not displayed. Current Facility-Administered Medications Medication Dose Route Frequency - acetaminophen 1,000 mg tab(s) (TYLENOL) 1,000 mg ORAL/FEEDING TUBE q 6 H - albuterol 2.5 mg /3 mL (0.083 %) 2.5 mg (PROVENTIL) 2.5 mg INHALATION q 2 H PRN - atorvastatin 40 mg tab(s) (LIPITOR) 40 mg ORAL AT BEDTIME - ondansetron (PF) 4 mg injection (ZOFRAN) 4 mg INTRAVENOUS q 6 H PRN - lidocaine 4 % 1 Patch (SALONPAS) 1 Patch TRANSDERMAL DAILY And - lidocaine patch - REMOVE OTHER AT BEDTIME And - lidocaine - VERIFY PATCH OTHER q 8 H - bisacodyl 10 mg suppository (DULCOLAX) 10 mg RECTAL DAILY PRN - magnesium oxide 400 mg tab(s) (MAG-OX) 400 mg ORAL DAILY - pantoprazole DR 40 mg tab(s) (PROTONIX) 40 mg ORAL DAILY (6 AM) - enoxaparin 30 mg injection (LOVENOX) 30 mg SUBCUTANEOUS q 24 HR - dextrose 40 % 15 g 15 g ORAL PRN Or - glucagon 1 mg injection (GLUCAGEN) 1 mg INTRAMUSCULAR PRN Or - dextrose 50% in water 25 mL syringe 12.5 g INTRAVENOUS PRN - insulin lispro pen (rapid acting) (HumaLOG KWIKPEN) SUBCUTANEOUS w MEALS - acetylcysteine 200 mg/mL (20 %) 200 mg (MUCOMYST) 200 mg INHALATION BID - senna-docusate 8.6-50 mg 2 tablet (SENNA-S) 2 tablet ORAL BID - NaCl 0.9% 2-10 mL 2-10 mL INTRAVENOUS q 12 H - melatonin 3 mg tab(s) 3 mg ORAL HS PRN - traMADol 50-100 mg tab(s) (ULTRAM) 50-100 mg ORAL q 12 H PRN - metoprolol succinate ER 50 mg tab(s) (TOPROL XL) 50 mg ORAL BID - guaiFENesin 600 mg ER tab(s) (MUCINEX) 600 mg ORAL q 12 H - albuterol 2.5 mg /3 mL (0.083 %) 2.5 mg (PROVENTIL) 2.5 mg INHALATION TID - torsemide 10 mg tab(s) (DEMADEX) 10 mg ORAL DAILY - clopidogrel 75 mg tab(s) (PLAVIX) 75 mg ORAL DAILY - aspirin 81 mg chewable tab(s) 81 mg ORAL DAILY - insulin lispro 8 Units pen (rapid acting) (HumaLOG KWIKPEN) 8 Units SUBCUTANEOUS w MEALS - polyethylene glycol 3350 17 g packet (MIRALAX, GLYCOLAX) 17 g ORAL DAILY PRN - insulin glargine 11 Units pen (long acting) (LANTUS SOLOSTAR, BASAGLAR KWIKPEN) 11 Units SUBCUTANEOUS DAILY (8 AM) - amLODIPine 5 mg tab(s) (NORVASC) 5 mg ORAL DAILY - amiodarone 200 mg tab(s) (PACERONE) 200 mg ORAL DAILY Objective PHYSICAL EXAM:BP 147/72 Pulse 73 Temp (Src) 97.7 (Oral) Resp 18 Ht 5' 3 (1.60m) Wt 176 lb 12.8 oz (80.2kg) SpO2 98% BMI 31.33 kg/(m2). O2 Therapy: Room Air NAD, sitting up in chair Lungs: clear CVS: RRR Abd: soft Ext: No edema DATA: Diagnostic tests reviewed for today's visit: Most recent labs and imaging results. Assessment/Plan Diabetes mellitus type 2; HbA1c 8.4; was on lantus 12 units daily am and humalog 8 units qac tid plus correction pre-op. Was on iv insulin gtt per CABG protocol; BS 68 mg/dl; poor po intake; off of pressors; On prandial humalog 8 units qac tid, decreased to 4 units qac tid and lantus 8 units daily; d/c iv insulin gtt on 01/10 and Lantus resumed; S creat up. Humalog increased on 01/11. Was on Lantus 8 units daily am and Humalog 6 units qac on 01/13. BS >300's, likely due to high sugars in diet (fruit ice), eating better! Increased Humalog to 8 units tid on 01/14. BS >150's, increased Lantus to home dose 11 units qam on 01/15. BS better, cont Rx. SHA/CKS stage III; S creat 1.61(1.49)(1.52)(1.82)( 1.93)(1.9)1.8)(1.55)(1. 26)(1.44)(1.46)(1.8)(2. 1) (baseline 1.3) ACS (acute coronary syndrome) (HCC) POA: Yes Assessment AND Plan: EF 30%; s/p CABG 01/09/2020 SIGNATURE: Eileen Jones MD PATIENT NAME: Concha Woodward DATE: January 17, 2020 TIME: 8:14 AM PAGER: [phone] Normal [facility] Glucose Meteron 01-17-2020 Glucose [Mass/Vol] 147 mg/dL High 70-99 [facility] Comment on above: Result Comment: RN N OTIFIED Performed By: #### G LMET #### [place] [address] MDRD GFRon 01-17-2020 GFR/1.73 sq M predicted among non-blacks MDRD (S/P/Bld) [Vol rate/Area] 30.57 mL/min/{1.73_m2} Normal >60mL/min/1. 73m2 [facility] Comment on above: Result Comment: If t he patient is , multiply the result by 1.210. Performed By: #### A PTT #### [place] [address] PROGRESSon 01-17-2020 PROGRESS HNO ID: [id number] Author: Erwin Sewell Service: Nephrology Author Type: Physician Type: Progress Notes Filed: 01/17/2020 10:47 AM Note Text: [facility] Nephrology Progress Note Subjective/ INTERVAL HISTORY: We are seeing the patient for issues with SHA and ?New onset CHF Seen and examined No complaints overnight Scr Improved Going home today BP is stable No CP SOB is improving S/p CABG on 01/08 UOP is adequate No change in the PFSH at this time ROS is (-) unless mentioned 01/17/20 0502 01/17/20 0615 01/17/20 0825 01/17/20 0856 BP: 147/72 138/60 Pulse: 73 80 74 Resp: 18 18 18 Temp: 36.5 ?C (97.7 ?F) 36.5 ?C (97.7 ?F) TempSrc: Oral Oral SpO2: 98% 96% 96% Weight: 80.2 kg (176 lb 12.8 oz) Height: 24HR INTAKE/OUTPUT: No intake or output data in the 24 hours ending 01/17/20920 ? Constitutional:??extuba petar, in chair, awake, alert, NAD HEAD, EYES, ENT: ?No pallor. ?No cyanosis. ?No icterus. ?Mucous membranes of mouth ?were moist. NECK: ?Otherwise supple. ?Hard for me to see a jugular vein distention elevation. ?LUNGS: ?Clear to auscultation. ?No rales. CARDIOVASCULAR: ?S1, S2. ?No rubs or gallops.CT are noted ABDOMEN: ?Soft, obese, nontender. ?Bowel sounds are heard. EXTREMITIES: ?No peripheral edema. SKIN: ?Otherwise warm and moist. PSYCH: ?Normal affect. ?Does not appear to be anxious, depressed, or agitated. with rory noted Good urine Current Facility-Administered Medications Medication Dose Route Frequency - insulin glargine 11 Units pen (long acting) (LANTUS SOLOSTAR, BASAGLAR KWIKPEN) 11 Units SUBCUTANEOUS DAILY (8 AM) - amLODIPine 5 mg tab(s) (NORVASC) 5 mg ORAL DAILY - amiodarone 200 mg tab(s) (PACERONE) 200 mg ORAL DAILY - polyethylene glycol 3350 17 g packet (MIRALAX, GLYCOLAX) 17 g ORAL DAILY PRN - metoprolol succinate ER 50 mg tab(s) (TOPROL XL) 50 mg ORAL BID - guaiFENesin 600 mg ER tab(s) (MUCINEX) 600 mg ORAL q 12 H - albuterol 2.5 mg /3 mL (0.083 %) 2.5 mg (PROVENTIL) 2.5 mg INHALATION TID - torsemide 10 mg tab(s) (DEMADEX) 10 mg ORAL DAILY - clopidogrel 75 mg tab(s) (PLAVIX) 75 mg ORAL DAILY - aspirin 81 mg chewable tab(s) 81 mg ORAL DAILY - insulin lispro 8 Units pen (rapid acting) (HumaLOG KWIKPEN) 8 Units SUBCUTANEOUS w MEALS - dextrose 40 % 15 g 15 g ORAL PRN Or - glucagon 1 mg injection (GLUCAGEN) 1 mg INTRAMUSCULAR PRN Or - dextrose 50% in water 25 mL syringe 12.5 g INTRAVENOUS PRN - insulin lispro pen (rapid acting) (HumaLOG KWIKPEN) SUBCUTANEOUS w MEALS - acetylcysteine 200 mg/mL (20 %) 200 mg (MUCOMYST) 200 mg INHALATION BID - senna-docusate 8.6-50 mg 2 tablet (SENNA-S) 2 tablet ORAL BID - NaCl 0.9% 2-10 mL 2-10 mL INTRAVENOUS q 12 H - melatonin 3 mg tab(s) 3 mg ORAL HS PRN - traMADol 50-100 mg tab(s) (ULTRAM) 50-100 mg ORAL q 12 H PRN - enoxaparin 30 mg injection (LOVENOX) 30 mg SUBCUTANEOUS q 24 HR - pantoprazole DR 40 mg tab(s) (PROTONIX) 40 mg ORAL DAILY (6 AM) - acetaminophen 1,000 mg tab(s) (TYLENOL) 1,000 mg ORAL/FEEDING TUBE q 6 H - albuterol 2.5 mg /3 mL (0.083 %) 2.5 mg (PROVENTIL) 2.5 mg INHALATION q 2 H PRN - atorvastatin 40 mg tab(s) (LIPITOR) 40 mg ORAL AT BEDTIME - ondansetron (PF) 4 mg injection (ZOFRAN) 4 mg INTRAVENOUS q 6 H PRN - lidocaine 4 % 1 Patch (SALONPAS) 1 Patch TRANSDERMAL DAILY And - lidocaine patch - REMOVE OTHER AT BEDTIME And - lidocaine - VERIFY PATCH OTHER q 8 H - bisacodyl 10 mg suppository (DULCOLAX) 10 mg RECTAL DAILY PRN - magnesium oxide 400 mg tab(s) (MAG-OX) 400 mg ORAL DAILY Data/ CBC, Coags, BMP, Mg, Phos Recent Labs 01/17/20 0520 01/16/20 0406 01/15/20 0940 NA 137 139 137 K 3.8 4.2 3.9 CHLOR 109* 110* 107 CO2 21 21 23 BUN 35* 40* 41* CREAT 1.61* 1.49* 1.62* GLUC 118* 151* 300* CA 8.7 8.3* 8.3* Assessment/ 84 year old female who presents with ? IMPRESSION: SHA +ATN post the CABG CKD 3 STEMI Acute systolic CHF 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 Reccomendations Cr better Maintain demadex CRS, so avoid over and under diuresis consider Increase demadex in am CHF stable Replace k prn Ok for low dose ARB/PAWEL-I from renal standpoint DM ( target Hb A1c < 7) Ok for dc and fu in office in 2 weeks from renal standpoint Normal [facility] Basic Panelon 01-16-2020 Creatinine [Mass/Vol] 1.49 mg/dL High 0.51-0.95 [facility] Comment on above: Result Comment: Use of this assay is not recommended for patients undergoing treatment with phenindione, due to the potential for falsely depressed results. Performed By: #### G LMET #### [address] [address] Anion gap [Moles/Vol] 12 mmol/L Normal 8-16 [facility] Comment on above: Performed By: #### G LMET #### [address] [address] CO2 [Moles/Vol] 21 mmol/L Normal 21-32 [facility] Comment on above: Performed By: #### G LMET #### [address] [address] Glucose [Mass/Vol] 151 mg/dL High 70-99 [facility] Comment on above: Performed By: #### G LMET #### [address] [address] Urea nitrogen [Mass/Vol] 40 mg/dL High 7-18 [facility] Comment on above: Performed By: #### G LMET #### [address] [address] Calcium [Mass/Vol] 8.3 mg/dL Low 8.5-10.1 [facility] Comment on above: Performed By: #### G LMET #### [facility] [address] [place], [place] [address] Chloride [Moles/Vol] 110 mmol/L High 98-107 [facility] Comment on above: Performed By: #### G LMET #### [facility] [address] [place], [place] [address] Potassium [Moles/Vol] 4.2 mmol/L Normal 3.5-5.1 [facility] Comment on above: Performed By: #### G LMET #### [facility] [address] [place], [place] [address] Sodium [Moles/Vol] 139 mmol/L Normal 136-145 [facility] Comment on above: Performed By: #### G LMET #### [facility] [address] [place] [address] CASE MANAGEMon 01-16-2020 CASE MANAGEM HNO ID: [id number] Author: Poly Strickland Service: Care Management Author Type: ? Type: Care Mgt Progress Note Filed: 01/16/2020 1:15 PM Note Text: CARE MANAGEMENT PROGRESS NOTE SERVICE DATE: 01/16/2020 SERVICE TIME: 1115 LOS: 13 days IMM Follow Up Copy Given: Yes Copy given to:: Patient Method: In Person SIGNATURE: Poly Strickland PATIENT NAME: Concha Woodward DATE: January 16, 2020 TIME: 1:15 PM PAGER/CONTACT #: [phone] [facility] CASE MANAGEM HNO ID: [id number] Author: Patience BlairRn) RITA Christy Service: Care Management Author Type: Registered Nurse Type: Care Mgt Progress Note Filed: 01/16/2020 12:41 PM Note Text: CARE MANAGEMENT DISCHARGE NOTE SERVICE DATE: 01/16/2020 SERVICE TIME: 12:39 PM LOS: 13 days Admission Date: 01/03/2020 DISCHARGE ARRANGEMENT (list agency and phone number) Discharge Arrangement: Acute rehab [facility] C[facility] ASSESSMENT: Caregiver is ready, willing and able to meet the patient's needs as recommended by the inter-professional team:: No Does the patient have an acute stroke diagnosis, or has the patient had a stroke during this admission?: No Patient's transition needs and plan for meeting these needs: ESR HANDOFF COMMUNICATION: TRANSPORTATION ARRANGEMENTS: Transportation Arrangements: Car ADDITIONAL CONTACT RESOURCES: Spoke with pt at the bedside. Pt states that her family is able to transport her to rehab tomorrow 01/16 at 10am. SIGNATURE: Patience Christy RN PATIENT NAME: Concha Woodward DATE: January 16, 2020 TIME: 12:39 PM PAGER/CONTACT #: [phone] [facility] CONSULT PROGon 01-16-2020 CONSULT PROG HNO ID: [id number] Author: Eileen Jones Service: Endocrinology Author Type: Physician Type: Consult Progress Note Filed: 01/16/2020 8:56 AM Note Text: ENDOCRINOLOGY CONSULT PROGRESS NOTE SERVICE DATE: 01/16/2020 SERVICE TIME: 8:30 AM Subjective INTERVAL HPI: followed for DM type 2, on insulin MDI; can not tolerate metformin due to diarrhea; has CAD; s/p CABG. 01/09/2020 She was admitted to [facility] with chest pain and was found to have coronary artery disease. Patient has history of angioplasty 30 years ago. ?H/o CAD and remote FL now admitted with NSTEMI who is found to have severe MV CAD and ischemic CM with EF 30%, no CHF, in a setting of DM, HTN, HLD, CKD, remote CVA. Regarding diabetes, patient has history of type 2 diabetes for about 5 years. At home, patient takes Basaglar 9 units every morning and she takes NovoLog 8 units for breakfast and dinner and 6 units for lunch. Her A1c was 7.6 on December 25, now her A1c is 8.4. s/p CABG was on IV insulin gtt per CABG protocol now off; off of pressors; better po intake. Tr to floor on 01/12. Eating fruit ice/ice cream off and on, not taking Boost! DIET HEART HEALTHY Recent Labs 01/16/20 0719 01/16/20 0406 01/15/20 2106 01/15/20 1650 01/15/20 0940 01/14/20 0523 GLUC -- 151* -- -- -- 300* -- 124* GLUCOSEMETER 160* -- 171* 143* < > -- < > -- < > = values in this interval not displayed. Current Facility-Administered Medications Medication Dose Route Frequency - acetaminophen 1,000 mg tab(s) (TYLENOL) 1,000 mg ORAL/FEEDING TUBE q 6 H - albuterol 2.5 mg /3 mL (0.083 %) 2.5 mg (PROVENTIL) 2.5 mg INHALATION q 2 H PRN - atorvastatin 40 mg tab(s) (LIPITOR) 40 mg ORAL AT BEDTIME - ondansetron (PF) 4 mg injection (ZOFRAN) 4 mg INTRAVENOUS q 6 H PRN - lidocaine 4 % 1 Patch (SALONPAS) 1 Patch TRANSDERMAL DAILY And - lidocaine patch - REMOVE OTHER AT BEDTIME And - lidocaine - VERIFY PATCH OTHER q 8 H - bisacodyl 10 mg suppository (DULCOLAX) 10 mg RECTAL DAILY PRN - magnesium oxide 400 mg tab(s) (MAG-OX) 400 mg ORAL DAILY - pantoprazole DR 40 mg tab(s) (PROTONIX) 40 mg ORAL DAILY (6 AM) - insulin glargine 8 Units pen (long acting) (LANTUS SOLOSTAR, BASAGLAR KWIKPEN) 8 Units SUBCUTANEOUS DAILY (8 AM) - amiodarone 400 mg tab(s) (PACERONE) 400 mg ORAL TID - enoxaparin 30 mg injection (LOVENOX) 30 mg SUBCUTANEOUS q 24 HR - dextrose 40 % 15 g 15 g ORAL PRN Or - glucagon 1 mg injection (GLUCAGEN) 1 mg INTRAMUSCULAR PRN Or - dextrose 50% in water 25 mL syringe 12.5 g INTRAVENOUS PRN - insulin lispro pen (rapid acting) (HumaLOG KWIKPEN) SUBCUTANEOUS w MEALS - acetylcysteine 200 mg/mL (20 %) 200 mg (MUCOMYST) 200 mg INHALATION BID - senna-docusate 8.6-50 mg 2 tablet (SENNA-S) 2 tablet ORAL BID - NaCl 0.9% 2-10 mL 2-10 mL INTRAVENOUS q 12 H - melatonin 3 mg tab(s) 3 mg ORAL HS PRN - traMADol 50-100 mg tab(s) (ULTRAM) 50-100 mg ORAL q 12 H PRN - metoprolol succinate ER 50 mg tab(s) (TOPROL XL) 50 mg ORAL BID - amLODIPine 2.5 mg tab(s) (NORVASC) 2.5 mg ORAL DAILY - guaiFENesin 600 mg ER tab(s) (MUCINEX) 600 mg ORAL q 12 H - albuterol 2.5 mg /3 mL (0.083 %) 2.5 mg (PROVENTIL) 2.5 mg INHALATION TID - torsemide 10 mg tab(s) (DEMADEX) 10 mg ORAL DAILY - clopidogrel 75 mg tab(s) (PLAVIX) 75 mg ORAL DAILY - aspirin 81 mg chewable tab(s) 81 mg ORAL DAILY - insulin lispro 8 Units pen (rapid acting) (HumaLOG KWIKPEN) 8 Units SUBCUTANEOUS w MEALS - polyethylene glycol 3350 17 g packet (MIRALAX, GLYCOLAX) 17 g ORAL DAILY PRN Objective PHYSICAL EXAM:BP 142/72 Pulse 66 Temp (Src) 97.5 (Oral) Resp 18 Ht 5' 3 (1.60m) Wt 177 lb 1.6 oz (80.3kg) SpO2 95% BMI 31.38 kg/(m2). O2 Therapy: Room Air NAD, sitting up in chair Lungs: clear CVS: RRR Abd: soft Ext: No edema DATA: Diagnostic tests reviewed for today's visit: Most recent labs and imaging results. Assessment/Plan Diabetes mellitus type 2; HbA1c 8.4; was on lantus 12 units daily am and humalog 8 units qac tid plus correction pre-op. Was on iv insulin gtt per CABG protocol; BS 68 mg/dl; poor po intake; off of pressors; On prandial humalog 8 units qac tid, decreased to 4 units qac tid and lantus 8 units daily; d/c iv insulin gtt on 01/10 and Lantus resumed; S creat up. Humalog increased on 01/11. Was on Lantus 8 units daily am and Humalog 6 units qac on 01/13. BS >300's, likely due to high sugars in diet (fruit ice), eating better! Increased Humalog to 8 units tid on 01/14. BS >150's, will increase Lantus to home dose 11 units qam today. SHA/CKS stage III; S creat 1.49(1.52)(1.82)(1.93)( 1.9)1.8)(1.55)(1.26)(1. 44)(1.46)(1.8)(2.1) (baseline 1.3) ACS (acute coronary syndrome) (HCC) POA: Yes Assessment AND Plan: EF 30%; s/p CABG 01/09/2020 SIGNATURE: Eileen Jones MD PATIENT NAME: Concha Woodward DATE: January 16, 2020 TIME: 8:56 AM PAGER: [phone] [facility] NUTRITIONon 01-16-2020 NUTRITION HNO ID: [id number] Author: Kinjal Velarde Service: Nutrition Therapy Author Type: Registered Dietitian Type: Nutrition Filed: 01/16/2020 11:18 AM Note Text: NUTRITION THERAPY SCREEN NOTE SERVICE DATE: 01/16/2020 SERVICE TIME: 11:17 AM Care Plan: - Continue current diet - Adjust Supplements: Boost Glucose Control Discharge Recommendations: Diet;Oral Supplements Diet: Heart healthy, CHO controlled Oral Supplements: Continue Boost Glucose Control as needed with continued poor appetite. Intake History: Nutrition Intake Prior to Admission: Greater than 75% estimated energy needs greater than or equal to 3 months Current Intake: Less than 75% estimated energy needs over: the pasy 7 days. Current Diet: DIET HEART HEALTHY Anthropometrics: Height: 160 cm (5' 3) Weight: 80.3 kg (177 lb 1.6 oz) Usual Weight: 75 kg (165 lb 5.5 oz) Weight change percentage over time: Insignficant SIGNATURE: Kinjal Velarde RD, LD PATIENT NAME: Cnocha Woodward DATE: January 16, 2020 TIME: 11:16 AM PAGER: [phone] [facility] PROGRESSon 01-16-2020 PROGRESS HNO ID: [id number] Author: Yanet Rivera Service: Thoracic Surgery Author Type: Physician Type: Progress Notes Filed: 01/16/2020 5:00 PM Note Text: Patient seen this afternoon with RN FACULTY. Patient feeling better and hapyy and thankful. P-to [facility] acute rehab in AM Sunday per Erin. [facility] PROGRESS HNO ID: [id number] Author: Erin Lanier CNP Service: Cardiac Surgery Author Type: Nurse Practitioner Type: Progress Notes Filed: 01/16/2020 12:22 PM Note Text: CARDIOTHORACIC SURGERY POSTOP PROGRESS NOTE SERVICE DATE: 01/16/2020 SERVICE TIME: 12:17 PM Subjective S/P SURGERY: Procedure(s) (LRB): CABG x 4 (GHOSH [id number] to diagonal, end-to-side to LAD in sequential fashion, SVG [id number] to OM, and end-to-side of PLB of the RCA,?rEVH) DATE OF SURGERY: 01/09/2020 POSTOP DAY #7 LOS: 13 HPI:?Concha Woodward?is an 84-year-old woman from [facility] who transferred to [facility]. with?NSTEMI and found to have multivessel coronary artery disease with decreased EF 30%. She is a history of CAD (status post angioplasty 30 years ago), DM, HTN, HLD, remote CVA with left-sided weakness, CK 80 (baseline creatinine 1.4-1.5). She denies any history of CHF. At presentation she complained of upper respiratory symptoms, and was treated with amoxicillin. At [facility] she was loaded with Brillinta. During the Brillinta wash, she underwent a complete workup at [facility]. She was found to have multiple wall motion abnormalities including akinetic inferior septal wall, 2+ MR. Further NT proBNP was elevated at greater than 9,000,?normal lung function, right-sided carotid artery stenosis 40-59%.?CT of the chest also noted lobular contour kidneys and recommends further follow-up with ultrasound once recovered from her acute coronary syndrome. ? ? INTERVAL EVENTS / PERTINENT ROS:?Following a thorough workup and Brillinta elimination, she underwent CABG ?[address] Rivera.?Her postoperative recovery has been remarkable for acute on chronic kidney injury, atrial fibrillation with RVR on amiodarone, metoprolol, OAC deferred for now. Discharge planning is underway, she wishes to discharge to [facility] acute rehabilitation. They have accepted, insurance prior authorization is not required. She is held over due to SHA on CKD with fluid volume overload. Today, she is doing quite well. Aware [facility] cannot take her to day. She will go by private car Sat AM. Objective Admission Weight: 73.3 kg (161 lb 9.6 oz) BP 135/56 Pulse 72 Temp 36.5 ?C (97.7 ?F) (Oral) Resp 16 Ht 160 cm (5' 3) Wt 80.3 kg (177 lb 1.6 oz) SpO2 98% BMI 31.37 kg/m? Body surface area is 1.89 meters squared. Min/Max/Average Temperature AND Blood Pressure: Temp (24hrs), Av.6 ?C (97.8 ?F), Min:36.4 ?C (97.5 ?F), Max:36.8 ?C (98.2 ?F) Systolic (24hrs), Av , Min:114 , Max:176 Diastolic (24hrs), Av, Min:56, Max:95 Intake/Output Summary (Last 24 hours) at 01/16/2020 1216 Last data filed at 01/15/2020 2358 Gross per 24 hour Intake 360 ml Output ? Net 360 ml TELEMETRY: normal sinus rhythm PHYSICAL EXAM: General Appearance: well developed Skin: Midsternal incision dry AND intact., SVG incisions dry AND intact., warm and dry Lungs: clear and respiratory effort: normal Heart: S1, S2 normal Peripheral Vascular/Arteries: pulses intact Abdomen: soft, round, non-tender and bowel sounds present Extremities: normal exam of the extremities Lines, Drains, and Airways Line Peripheral 01/03/20 1849 Admission to Hospital Short Left Forearm 20 Gauge 12 days Peripheral 01/04/20 1618 Short Right Antecubital 20 Gauge 11 days DATA: Diagnostic tests reviewed for today's visit: Significant Lab Results: As Below Recent Labs 01/16/20 0406 01/15/20 0940 01/14/20 0523 RBC -- -- 3.38* WBC -- -- 11.07* HB -- -- 10.1* HCT -- -- 31.8* PLT -- -- 209 NA 139 137 138 K 4.2 3.9 4.3 CHLOR 110* 107 111* CO2 21 23 20* BUN 40* 41* 47* CREAT 1.49* 1.62* 1.82* GLUC 151* 300* 124* CA 8.3* 8.3* 8.3* ANION 12 11 11 Assessment/Plan NSTEMI/ CAD -s/p CABG x 4 (ghosh-lad sequenced with diag; svg-om, rpl; evh);?POD#6 -ASA?to 162,?continue?atorvasta tin?40, Metoprolol 50 mg XR bid -Add Plavix for AM -wires (V cut and A pulled) -Vest (DM, BMI >?30, CKD)? -Remove?central line? -Bowel regimen?increased -Pain control per ERAS -IS/ PT/ OT ? Atrial fibrillation RVR -Currently NSR -Rhythm/rate control with amiodarone?(400 TID)? -Start metoprolol succinate 50 mg BID -Consider 100 mg daily for discharge -Defer OAC since in NSR; if recurrent then start Eliquis at 2.5 mg BID (age> 80/ Cr > 1.5) -CHADS2 score: 6 -BNE1CQ5 VASc score: 9 ? Volume overload ?- 80.8/73.3 +7 kg -torsemide per nephro at 10 mg ? Anticipated post-op respiratory insufficiency -2/2 atelectasis and effusion -On RA -Pulm toilet increased by PCCM with flutter valve and mucomyst -Continue to use IS/ ambulate ? Leukocytosis -11.07 and trending down? -Afebrile ? Thrombocytopenia -209; resolved? ? Acute blood loss anemia -2/2 OR -Hgb?trending up at?10.1 -No indication for transfusion ? A/CKD -Nephro following: -Torsemide 10 mg -Cr?stable at? 1.49 (1.62 1.82 1.93; peaked at 1.96) ? DM2 -Endo?following? -Appreciate recs: lantus to 11 units, Humalog 8 units TID ? HFrEF -2/2 ICM -EF 30% -torsemide 10 mg daily -change to Metoprolol Succinate BID -Defer ACEi until Cr?at baseline ? HTN -Defer?ACEi?(see SHA)? -Home: Lisinopril 40, Amlodipine 10, Coreg 6.25 -Resume low dose amlodipine 2.5 ? HLD -Atorvastatin? ? DVT ppx -Lovenox?(30mg for CrCl < 30) -Cont SCD to LLE (pain with RLE)? ? GI ppx -Protonix? ? Remote Hx of CVA ? Cardiac Rehab: Educated or reinforced with patient cardiac risk factors, home activity recommendations, BP/pulse monitoring, symptom management, and follow- up appointment scheduling. Patient and/or family verbalizes understanding. ? DISPO:??Acute Rehab. [facility] has Accepted, no insurance auth required. Discharge is done for Sunday. She is to leave Sat AM by private car. Tests/Labs Ordered: 1. None SIGNATURE: Erin Lanier APRN.CNP PATIENT NAME: Concha Woodward DATE: January 16, 2020 TIME: 12:16 PM PAGER/CONTACT #: [phone] ETX [id number] Normal [facility] PROGRESS HNO ID: [id number] Author: Cesar Burroughs Service: Nephrology Author Type: Physician Type: Progress Notes Filed: 01/16/2020 7:27 PM Note Text: [facility] Nephrology Progress Note Subjective/ INTERVAL HISTORY: We are seeing the patient for issues with SHA and ?New onset CHF Seen and examined No complaints overnight Scr improved BP is stable No CP SOB is improving S/p CABG on 01/08 UOP is adequate No change in the PFSH at this time ROS is (-) unless mentioned Objective/ 01/16/20 0024 01/16/20 0356 01/16/20 0410 01/16/20 0823 BP: 147/62 142/72 Pulse: 69 65 66 Resp: 18 18 Temp: 36.4 ?C (97.5 ?F) TempSrc: Oral SpO2: 95% Weight: 80.3 kg (177 lb 1.6 oz) Height: 24HR INTAKE/OUTPUT: Intake/Output Summary (Last 24 hours) at 01/16/2020 0827 Last data filed at 01/15/2020 2358 Gross per 24 hour Intake 360 ml Output ? Net 360 ml ? Constitutional:??extuba petar, in chair, awake, alert, NAD HEAD, EYES, ENT: ?No pallor. ?No cyanosis. ?No icterus. ?Mucous membranes of mouth ?were moist. NECK: ?Otherwise supple. ?Hard for me to see a jugular vein distention elevation. ?LUNGS: ?Clear to auscultation. ?No rales. CARDIOVASCULAR: ?S1, S2. ?No rubs or gallops.CT are noted ABDOMEN: ?Soft, obese, nontender. ?Bowel sounds are heard. EXTREMITIES: ?No peripheral edema. SKIN: ?Otherwise warm and moist. PSYCH: ?Normal affect. ?Does not appear to be anxious, depressed, or agitated. ERIN park noted Good urine Current Facility-Administered Medications Medication Dose Route Frequency - polyethylene glycol 3350 17 g packet (MIRALAX, GLYCOLAX) 17 g ORAL DAILY PRN - metoprolol succinate ER 50 mg tab(s) (TOPROL XL) 50 mg ORAL BID - amLODIPine 2.5 mg tab(s) (NORVASC) 2.5 mg ORAL DAILY - guaiFENesin 600 mg ER tab(s) (MUCINEX) 600 mg ORAL q 12 H - albuterol 2.5 mg /3 mL (0.083 %) 2.5 mg (PROVENTIL) 2.5 mg INHALATION TID - torsemide 10 mg tab(s) (DEMADEX) 10 mg ORAL DAILY - clopidogrel 75 mg tab(s) (PLAVIX) 75 mg ORAL DAILY - aspirin 81 mg chewable tab(s) 81 mg ORAL DAILY - insulin lispro 8 Units pen (rapid acting) (HumaLOG KWIKPEN) 8 Units SUBCUTANEOUS w MEALS - dextrose 40 % 15 g 15 g ORAL PRN Or - glucagon 1 mg injection (GLUCAGEN) 1 mg INTRAMUSCULAR PRN Or - dextrose 50% in water 25 mL syringe 12.5 g INTRAVENOUS PRN - insulin lispro pen (rapid acting) (HumaLOG KWIKPEN) SUBCUTANEOUS w MEALS - acetylcysteine 200 mg/mL (20 %) 200 mg (MUCOMYST) 200 mg INHALATION BID - senna-docusate 8.6-50 mg 2 tablet (SENNA-S) 2 tablet ORAL BID - NaCl 0.9% 2-10 mL 2-10 mL INTRAVENOUS q 12 H - melatonin 3 mg tab(s) 3 mg ORAL HS PRN - traMADol 50-100 mg tab(s) (ULTRAM) 50-100 mg ORAL q 12 H PRN - amiodarone 400 mg tab(s) (PACERONE) 400 mg ORAL TID - enoxaparin 30 mg injection (LOVENOX) 30 mg SUBCUTANEOUS q 24 HR - insulin glargine 8 Units pen (long acting) (LANTUS SOLOSTAR, BASAGLAR KWIKPEN) 8 Units SUBCUTANEOUS DAILY (8 AM) - pantoprazole DR 40 mg tab(s) (PROTONIX) 40 mg ORAL DAILY (6 AM) - acetaminophen 1,000 mg tab(s) (TYLENOL) 1,000 mg ORAL/FEEDING TUBE q 6 H - albuterol 2.5 mg /3 mL (0.083 %) 2.5 mg (PROVENTIL) 2.5 mg INHALATION q 2 H PRN - atorvastatin 40 mg tab(s) (LIPITOR) 40 mg ORAL AT BEDTIME - ondansetron (PF) 4 mg injection (ZOFRAN) 4 mg INTRAVENOUS q 6 H PRN - lidocaine 4 % 1 Patch (SALONPAS) 1 Patch TRANSDERMAL DAILY And - lidocaine patch - REMOVE OTHER AT BEDTIME And - lidocaine - VERIFY PATCH OTHER q 8 H - bisacodyl 10 mg suppository (DULCOLAX) 10 mg RECTAL DAILY PRN - magnesium oxide 400 mg tab(s) (MAG-OX) 400 mg ORAL DAILY Data/ CBC, Coags, BMP, Mg, Phos Recent Labs 01/16/20 0406 01/15/20 0940 01/14/20 0523 WBC -- -- 11.07* HB -- -- 10.1* HCT -- -- 31.8* PLT -- -- 209 NA 139 137 138 K 4.2 3.9 4.3 CHLOR 110* 107 111* CO2 21 23 20* BUN 40* 41* 47* CREAT 1.49* 1.62* 1.82* GLUC 151* 300* 124* CA 8.3* 8.3* 8.3* Assessment/ 84 year old female who presents with ? IMPRESSION: SHA +ATN post the CABG CKD 3 STEMI Acute systolic CHF 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 Reccomendations Cr better Maintain demadex Extra lasix IV as edema worse CRS, so avoid over and under diuresis Tami consider Increase demadex in am CHF stable Replace k prn Ok for low dose ARB/PAWEL-I from renal standpoint DM ( target Hb A1c < 7) Ok for dc and fu in office in 2 weeks from renal standpoint Normal [facility] THERAPY NTon 01-16-2020 THERAPY NT HNO ID: [id number] Author: Franci (PtJohn Wong Service: Physical Therapy Author Type: Physical Therapist Type: Therapy (PT/OT/Speech/Resp) Filed: 01/16/2020 5:13 PM Note Text: Physical Therapy Treatment SERVICE DATE: 01/16/2020 SERVICE TIME: 1602 to 1620 ROOM: [id number] Recommended Discharge Disposition: Acute Rehab Recommended Discharge Disposition Comments: Patient below baseline of indoependence and would benefit from Acute Rehab prior to discharge home to improve ambulation toelrance and strength for improved safety and indpendence and progression towards prior level of function Justification For Post Acute Needs: Anticipate patient will tolerate 3 hours of daily therapy at the time of admission to post-acute setting;Cognition intact;Good family support;Living the community premorbidly;Motivated;W illing to participate PT Recommendations to Nursing: Ambulate with device;To bathroom;In halls;Transfer to/from chair;OOB for Meals;With assist of 1 person Device: Wheeled Walker PT 6 Clicks Score: 15 Precautions/Activity Restrictions: Fall Risk Isolation Type: None ASSESSMENT : Patient progressing towards goals. Continues to require verbal cues to adhere to sternal precautions with functional mobility. Fatigues easily with ambulation and requires cues for rest breaks. Patient would benefit from additional physical therapy to address deficits, improve strength/balance/mobili ty. Recommend acute rehab at discharge. Patient Disposition at Start of Session: OOB in Chair;Call Garrison in Reach Patient Disposition at End of Session: OOB in Chair;Call Garrison in Reach Tolerated Full Session Without limitations Physical Therapy Problem List: Education Deficit;Decreased Activity Tolerance;Decreased Strength;Functional Mobility Impairment;Balance Impaired Patient /Caregiver Goals: Go Home Goals for Plan of Care: Able to perform HEP with: Independent Transfer sit to/from stand with: Independent Ambulate with: Independent Distance: 50 Device: No Device Ambulate up and down steps with: Contact Guard Assistance Number of steps: 2 Device: Rail Progress Toward Goals: Progressing as expected Rehab Potential: Good PLAN: Treatment Frequency (times per week): 5(3-5) Current admission Treatment Interventions: Energy Conservation Training;Strengthening; Functional Mobility Training;Balance Training Plan of Care developed with: Patient TREATMENT INTERVENTIONS: Therapy Diagnosis: Muscle Weakness (generalized);Unsteadin ess on feet Interventions Provided: Gait Training (60474) Gait Training (78988) Treatment Minutes: 18 1 unit Skilled Intervention(s): Education on sternal precautions during functional mobility - no pushing, reaching forward or behind with upper extremities, use cough pillow to brace sternum when moving or coughing. Patient demonstrates fair understanding. Education and cues for appropriate transfers. Instructed patient to cross arms over chest and initiate standing by pushing through bilateral lower extremities and utilizing momentum and forward weight shift as needed. Patient requires contact guard assist and demonstrates contact guard understanding. Cues to back up to surface and feel surface behind legs. Cues to cross arms over chest and bend at waist for bowing motion. Patient requires contact guard assist and demonstrates fair understanding. Cues for upright posture during ambulation. Vitals monitored during gait. Cues for deep breathing as appropriate. Cues for pacing as appropriate. Ambulates 50ft intervals with contact guard assist at walker. Education to ambulate at least 3x/day in ashraf with assist. Verbalizes understanding. Total Timed Code Treatment Minutes: 18 Total Treatment Time (minutes): 25 SUBJECTIVE: Current Hospital Course: Chart reviewed and no significant medical updates relevant to therapy were noted Reason for Physical Therapy Consult : eval and treat Relevant Past Medical History: stroke, DM2, CAD, HTN, HLD Patient Report: I haven't walked yet today. agreeable to physical therapy. Denies pain. No family present. Home Environment Patient Lives With: Spouse Assistance Available: 24 Hour Entry To Home: Stairs;With Rail Number Of Stairs Into Home: 2 Number Of Stairs To Bed/Bath: Full flight Stairs to Bed/Bath with: Bilateral Rail Tub/Shower Type: Walk-in shower Laundry: Basement Equipment Owned: Shower Chair Prior Functional Level: Within Functional Limits Prior Functional Level Comments: Pt reports independent with ADLs and IADLs prior to admission. No device, drives, volunteers OBJECTIVE: CURRENT FUNCTIONAL STATUS: Current Functional Mobility Assist Level Additional Information Rolling Supine to Sit Sit to Supine Scooting Sit to Stand Contact Guard Assistance Stand to Sit Contact Guard Assistance Bed to Chair Toilet/Commode Gait Minimal Assistance Gait Device: Wheeled Walker Gait Distance (feet): 60ft intervals Stairs Curb Step Car Transfer General Deviations/Observations : Jeffrey decreased;Flexed trunk posture;Non-functional gait speed;Step length decreased Balance: Static Sitting;Dynamic Sitting;Static Standing;Dynamic Standing Static Sitting Balance: Good Patient able to maintain balance without handhold support, limited postural sway Dynamic Sitting Balance: Good Patient accepts moderate challenge, able to maintain balance while picking up object off floor Static Standing Balance: Fair Patient able to maintain balance with handhold support, may require occasional minimal assistance Dynamic Standing Balance: Fair Patient accepts minimal challenge, able to maintain balance while turning head/trunk Activity Tolerance: Standing Activity Standing Activity: gait Standing Activity Tolerance (in minutes): 10 JH-HLM: 8: Walk 250 feet or more Please see discipline specific clinical documentation flowsheet for complete details for this therapy evaluation/treatment. SIGNATURE: Franci Wong PT PATIENT NAME: Concha Woodward DATE: January 16, 2020 TIME: 5:10 PM Normal [facility] THERAPY NT HNO ID: [id number] Author: Belgica (Otr/LJohn Sue Service: Occupational Therapy Author Type: Occupational Therapist Type: Therapy (PT/OT/Speech/Resp) Filed: 01/16/2020 4:13 PM Note Text: Occupational Therapy Treatment SERVICE DATE: 01/16/2020 SERVICE TIME: 1532 to 1550 ROOM: [id number] Recommended Discharge Disposition: Acute Rehab Recommended Discharge Disposition Comments: Pt will benefit from acute rehab at discharge to maximize functional mobility, activity tolerance, and independence during performance of ADLs and IADLs Justification For Post Acute Needs: Anticipate patient will tolerate 3 hours of daily therapy at the time of admission to post-acute setting;Cognition intact;Good premorbid functional status;Living the community premorbidly;Motivated;W illing to participate OT Recommendations to Nursing: OOB for meals;To Bathroom for ADL?s /and or Toileting;With assist of 1 person Equipment: Wheeled Walker OT 6 Clicks Score: 17 Precautions/Activity Restrictions: Fall Risk Isolation Type: None ASSESSMENT: Patient is progressing towards occupational therapy goals. Patient continues to require reminders on sternal precautions, safety, and energy conservation during activity. Patient will continue to benefit from Rehab at discharge to maximize independence and performance with ADLs and IADLs, mobility and activity tolerance. Patient Disposition at Start of Session: OOB in Chair;Call Garrison in Reach Patient Disposition at End of Session: OOB in Chair;Call Garrison in Reach Tolerated Full Session Occupational Therapy Problem List: Safety Deficits;Impaired Self Care;Decreased Activity Tolerance;Functional Mobility Impairment Patient /Caregiver Goals: Go To Rehab Goals for Plan of Care: Grooming with: Supervision Upper Body Bathing with: Stand By Assistance Upper Body Dressing with: Stand By Assistance Lower Body Bathing with: Stand By Assistance Lower Body Dressing with: Stand By Assistance Toilet Transfer with: Contact Guard Assistance Car Transfer with: Stand By Assistance Tolerate (minutes of functional activity): 20 Functional Activity with: Stand By Assistance Additional Goal 1: Pt will verbalize don/doffing of sternal vest with min assistance for placement Additional Goal 2: Pt will demo safe use of walker during transfers and functional activities 85% of time Demonstrate Competence With Education with: Independent(energy conservation and work simplification techniques ) Progress Toward Goals: Progressing as expected Rehab Potential: Good PLAN: Treatment Frequency (times per week): 3(1-3 times per week) Current admission Treatment Interventions: Education;Energy Conservation Training;Self Care / Home Management;Functional Mobility Training;Balance Training Plan of Care developed with: Patient TREATMENT INTERVENTIONS: Therapy Diagnosis: Reduced mobility-other;Decrease d activities of daily living (ADL);General symptoms and signs-other Interventions Provided: Self [facility] ([id number]) Self [facility] ([id number]) Treatment Minutes: 18 1 unit Skilled Intervention(s): Instructed in post-op sternal precautions and adaptations to functional activities. Allowed time for patient to demonstrate proper transfer techniques; cues provided on positioning of pillow for support/protection. Review with patient information for car transfers due to patient not recalling information discussed in previous session. Ensured patient understood importance of riding in the back seat of the car for extra safety. Provided instruction, cuing and facilitation for toileting; assisted in don/doffing of depends for toileting activity and assisted patient to sitting/standing from commode due to difficulty adhering to precautions. Assisted patient to standing sink-level to brush teeth and wash hands. Step by step instructions provided on proper turning of walker while standing at sink. Patient able to gather all supplies and complete hygiene activity with contact guard assistance to maximize safety. Noticed patient began to hyperventilate; encouraged use of deep breathing exercises and assisted to sitting in shower chair behind patient until completion of activity. Guided patient back to sitting at recliner in bedroom; assisted with repositioning and facilitated patient with a drink and cookies from nourishment room. Total Timed Code Treatment Minutes: 18 Total Treatment Time (minutes): 18 SUBJECTIVE: Current Hospital Course: Chart reviewed and no significant medical updates relevant to therapy were noted Reason for Occupational Therapy Consult: s/p CABG x 4 Relevant Past Medical History: stroke, DM2, CAD, HTN, HLD Patient Report: Patient IDx2. Pt reported no pain and was agreeable to therapy session. Home Environment Patient Lives With: Spouse Assistance Available: 24 Hour Entry To Home: Stairs;With Rail Number Of Stairs Into Home: 2 Number Of Stairs To Bed/Bath: Full flight Stairs to Bed/Bath with: Bilateral Rail Tub/Shower Type: Walk-in shower Laundry: Basement Equipment Owned: Shower Chair Prior Functional Level: Within Functional Limits Prior Functional Level Comments: Pt reports independent with ADLs and IADLs prior to admission. No device, drives, volunteers OBJECTIVE: Cognition/Communication Deficits Responsiveness: Alert;Awake Follows Commands: 3-step Commands Executive Function Deficits: Safety Awareness Safety Awareness Deficit: Minimal impairment CURRENT FUNCTIONAL STATUS: Current Activities of Daily Living Assist Level Feeding Set Up Grooming Contact Guard Assistance Bathing Upper Body Minimal Assistance Bathing Lower Body Minimal Assistance Dressing Upper Body Minimal Assistance Dressing Lower Body Minimal Assistance Toileting Moderate Assistance Functional Mobility Assist Level Rolling Supine to Sit Sit to Supine Scooting Sit to Stand Contact Guard Assistance Stand to Sit Contact Guard Assistance Bed to Chair Toilet/Commode Moderate Assistance Functional Mobility Moderate Assistance Wheeled Walker Functional Mobility Comments: Pt able to complete mobility to/from bathroom for toileting and brushing teeth standing sink-level Balance: Dynamic Standing Dynamic Standing Balance: Fair Patient accepts minimal challenge, able to maintain balance while turning head/trunk Activity Tolerance: Standing Activity Standing Activity: Mobility to/from bathroom for toileting and ADLs Standing Activity Tolerance (in minutes): 8 Please see discipline specific clinical documentation flowsheet for complete details for this therapy evaluation/treatment. SIGNATURE: Kesha Brownlee/MARCK PATIENT NAME: Concha Woodward DATE: January 16, 2020 TIME: 3:59 PM Evaluation and/or treatment directly supervised by licensed Occupational Therapist. I reviewed and agree with the documentation corresponding to this therapy visit. SIGNATURE: MATT Dockery/Nohemi DATE: January 16, 2020 TIME: 4:12 PM Normal [facility] Basic Panelon 01-15-2020 Creatinine [Mass/Vol] 1.62 mg/dL High 0.51-0.95 [facility] Comment on above: Result Comment: Use of this assay is not recommended for patients undergoing treatment with phenindione, due to the potential for falsely depressed results. Performed By: #### G LMET #### [facility] [address] [place], [place] [address] Anion gap [Moles/Vol] 11 mmol/L Normal 8-16 [facility] Comment on above: Performed By: #### G LMET #### [facility] [address] [place], [place] [address] CO2 [Moles/Vol] 23 mmol/L Normal 21-32 [facility] Comment on above: Performed By: #### G LMET #### [facility] [address] [place], [place] [address] Glucose [Mass/Vol] 300 mg/dL High 70-99 [facility] Comment on above: Performed By: #### G LMET #### [facility] [address] [place], [place] [address] Urea nitrogen [Mass/Vol] 41 mg/dL High 7-18 [facility] Comment on above: Performed By: #### G LMET #### [facility] [address] [place], [place] [address] Calcium [Mass/Vol] 8.3 mg/dL Low 8.5-10.1 [facility] Comment on above: Performed By: #### G LMET #### [facility] [address] [place], [place] [address] Chloride [Moles/Vol] 107 mmol/L Normal 98-107 [facility] Comment on above: Performed By: #### G LMET #### [facility] [address] [place], [place] [address] Potassium [Moles/Vol] 3.9 mmol/L Normal 3.5-5.1 [facility] Comment on above: Performed By: #### G LMET #### [facility] [address] [place], [place] [address] Sodium [Moles/Vol] 137 mmol/L Normal 136-145 [facility] Comment on above: Performed By: #### G LMET #### [facility] [address] [place], [place] [address] CONSULT PROGon 01-15-2020 CONSULT PROG HNO ID: [id number] Author: Eileen Jones Service: Endocrinology Author Type: Physician Type: Consult Progress Note Filed: 01/15/2020 8:35 AM Note Text: ENDOCRINOLOGY CONSULT PROGRESS NOTE SERVICE DATE: 01/15/2020 SERVICE TIME: 8:20 AM Subjective INTERVAL HPI: followed for DM type 2, on insulin MDI; can not tolerate metformin due to diarrhea; has CAD; s/p CABG. 01/09/2020 She was admitted to [facility] with chest pain and was found to have coronary artery disease. Patient has history of angioplasty 30 years ago. ?H/o CAD and remote FL now admitted with NSTEMI who is found to have severe MV CAD and ischemic CM with EF 30%, no CHF, in a setting of DM, HTN, HLD, CKD, remote CVA. Regarding diabetes, patient has history of type 2 diabetes for about 5 years. At home, patient takes Basaglar 9 units every morning and she takes NovoLog 8 units for breakfast and dinner and 6 units for lunch. Her A1c was 7.6 on December 25, now her A1c is 8.4. s/p CABG was on IV insulin gtt per CABG protocol now off; off of pressors; better po intake. Tr to floor on 01/12. Eating fruit ice/ice cream, not taking Boost! DIET HEART HEALTHY Recent Labs 01/14/20 2054 01/14/20 1722 01/14/20 1129 01/14/20 0523 01/13/20 0505 GLUC -- -- -- -- 124* -- 134* GLUCOSEMETER 348* 256* 145* < > -- < > -- < > = values in this interval not displayed. Current Facility-Administered Medications Medication Dose Route Frequency - acetaminophen 1,000 mg tab(s) (TYLENOL) 1,000 mg ORAL/FEEDING TUBE q 6 H - albuterol 2.5 mg /3 mL (0.083 %) 2.5 mg (PROVENTIL) 2.5 mg INHALATION q 2 H PRN - atorvastatin 40 mg tab(s) (LIPITOR) 40 mg ORAL AT BEDTIME - ondansetron (PF) 4 mg injection (ZOFRAN) 4 mg INTRAVENOUS q 6 H PRN - lidocaine 4 % 1 Patch (SALONPAS) 1 Patch TRANSDERMAL DAILY And - lidocaine patch - REMOVE OTHER AT BEDTIME And - lidocaine - VERIFY PATCH OTHER q 8 H - bisacodyl 10 mg suppository (DULCOLAX) 10 mg RECTAL DAILY PRN - magnesium oxide 400 mg tab(s) (MAG-OX) 400 mg ORAL DAILY - polyethylene glycol 3350 17 g packet (MIRALAX, GLYCOLAX) 17 g ORAL DAILY - pantoprazole DR 40 mg tab(s) (PROTONIX) 40 mg ORAL DAILY (6 AM) - insulin glargine 8 Units pen (long acting) (LANTUS SOLOSTAR, BASAGLAR KWIKPEN) 8 Units SUBCUTANEOUS DAILY (8 AM) - amiodarone 400 mg tab(s) (PACERONE) 400 mg ORAL TID - enoxaparin 30 mg injection (LOVENOX) 30 mg SUBCUTANEOUS q 24 HR - dextrose 40 % 15 g 15 g ORAL PRN Or - glucagon 1 mg injection (GLUCAGEN) 1 mg INTRAMUSCULAR PRN Or - dextrose 50% in water 25 mL syringe 12.5 g INTRAVENOUS PRN - insulin lispro pen (rapid acting) (HumaLOG KWIKPEN) SUBCUTANEOUS w MEALS - acetylcysteine 200 mg/mL (20 %) 200 mg (MUCOMYST) 200 mg INHALATION BID - senna-docusate 8.6-50 mg 2 tablet (SENNA-S) 2 tablet ORAL BID - NaCl 0.9% 2-10 mL 2-10 mL INTRAVENOUS q 12 H - melatonin 3 mg tab(s) 3 mg ORAL HS PRN - traMADol 50-100 mg tab(s) (ULTRAM) 50-100 mg ORAL q 12 H PRN - metoprolol succinate ER 50 mg tab(s) (TOPROL XL) 50 mg ORAL BID - amLODIPine 2.5 mg tab(s) (NORVASC) 2.5 mg ORAL DAILY - guaiFENesin 600 mg ER tab(s) (MUCINEX) 600 mg ORAL q 12 H - albuterol 2.5 mg /3 mL (0.083 %) 2.5 mg (PROVENTIL) 2.5 mg INHALATION TID - torsemide 10 mg tab(s) (DEMADEX) 10 mg ORAL DAILY - clopidogrel 75 mg tab(s) (PLAVIX) 75 mg ORAL DAILY - aspirin 81 mg chewable tab(s) 81 mg ORAL DAILY - insulin lispro 8 Units pen (rapid acting) (HumaLOG KWIKPEN) 8 Units SUBCUTANEOUS w MEALS Objective PHYSICAL EXAM:BP 149/64 Pulse 77 Temp (Src) 99.3 (Oral) Resp 18 Ht 5' 3 (1.60m) Wt 178 lb 2.1 oz (80.8kg) SpO2 95% BMI 31.56 kg/(m2). O2 Therapy: Room Air NAD, sitting up in chair Lungs: clear CVS: RRR Abd: soft Ext: No edema DATA: Diagnostic tests reviewed for today's visit: Most recent labs and imaging results. Assessment/Plan Diabetes mellitus type 2; HbA1c 8.4; was on lantus 12 units daily am and humalog 8 units qac tid plus correction pre-op. Was on iv insulin gtt per CABG protocol; BS 68 mg/dl; poor po intake; off of pressors; On prandial humalog 8 units qac tid, decreased to 4 units qac tid and lantus 8 units daily; d/c iv insulin gtt on 01/10 and Lantus resumed; S creat up. Humalog increased on 01/11. Was on Lantus 8 units daily am and Humalog 6 units qac on 01/13. BS >300's, likely due to high sugars in diet (fruit ice), eating better! Increase Humalog to 8 units tid from today. SHA/CKS stage III; S creat 1.82(1.93)(1.9)1.8)(1.5 5)(1.26)(1.44)(1.46)(1. 8)(2.1) (baseline 1.3) ACS (acute coronary syndrome) (HCC) POA: Yes Assessment AND Plan: EF 30%; s/p CABG 01/09/2020 SIGNATURE: Eileen Jones MD PATIENT NAME: Concha Woodward DATE: January 15, 2020 TIME: 8:35 AM PAGER: [phone] Normal [facility] NUTRITIONon 01-15-2020 NUTRITION HNO ID: [id number] Author: Franci Gramajo RD Service: Nutrition Therapy Author Type: Registered Dietitian Type: Nutrition Filed: 01/15/2020 12:16 PM Note Text: NUTRITION THERAPY PROGRESS NOTE SERVICE DATE: 01/15/2020 SERVICE TIME: 12:05 Nutrition Assessment: Recommended Malnutrition Diagnosis: No Malnutrition Identified (01/07/20 1300 : Kinjal Velarde) Estimated kilocalorie needs: [id number] Calorie Calculation Method: 25-30 kcals/kg Estimated protein needs (grams): 52-78 Grams protein determined by: 1.0-1.5 g/kg Care Plan: Continue current diet Supplements: Boost Glucose Control;Impact AR x 1 more day and then adjust to Boost only Monitor and Evaluation: Meet greater than 75% of estimated needs;Monitor labs, I/Os, vital signs, weight;Monitor fluid/electrolyte balance;Monitor bowel function Discharge Recommendations: Diet;Oral Supplements Diet: Heart healthy, CHO controlled Oral Supplements: Impact AR x 5 days post-op, adjust supplement to supplement of choice after if appetite is poor Interval History: Nephrology following for SHA. Endocrine following. Anthropometrics: Height: 160 cm (5' 3) Weight: 80.8 kg (178 lb 2.1 oz) Dosing Weight: 52 kg (114 lb 10.2 oz) Usual Weight: 75 kg (165 lb 5.5 oz) Body mass index is 31.55 kg/m?. Overweight Weight change percentage over time: Insignficant Intake History: Current Intake: Less than 75% estimated energy needs over: 6 days. Patient states appetite is getting a little better. Trying hard to drink the Impact, but really dislikes it. Reports she has not yet tried the Boost. Encouraged one more day of Impact and that she try the Boost. Current Diet: DIET HEART HEALTHY SIGNATURE: Franci Gramajo RD PATIENT NAME: Concha Woodward DATE: January 15, 2020 TIME: 9:32 AM PAGER: [phone] [facility] PROGRESSon 01-15-2020 PROGRESS HNO ID: [id number] Author: Yanet Rivera Service: Cardiac Surgery Author Type: Physician Type: Progress Notes Filed: 01/15/2020 3:10 PM Note Text: CARDIOTHORACIC SURGERY POSTOP PROGRESS NOTE SERVICE DATE: 01/15/2020 SERVICE TIME: 1:19 PM Subjective S/P SURGERY: Procedure(s) (LRB): CABG x 4 (GHOSH [id number] to diagonal, end-to-side to LAD in sequential fashion, SVG [id number] to OM, and end-to-side of PLB of the RCA, rEVH) DATE OF SURGERY: 01/09/2020 POSTOP DAY #6 LOS: 12 HPI: Concha Woodward is an 84-year-old woman from [facility] who transferred to [facility] with NSTEMI and found to have multivessel coronary artery disease with decreased EF 30%. She is a history of CAD (status post angioplasty 30 years ago), DM, HTN, HLD, remote CVA with left-sided weakness, CK 80 (baseline creatinine 1.4-1.5). She denies any history of CHF. At presentation she complained of upper respiratory symptoms, and was treated with amoxicillin. At [facility] she was loaded with Brillinta. During the Brillinta wash, she underwent a complete workup at [facility]. She was found to have multiple wall motion abnormalities including akinetic inferior septal wall, 2+ MR. Further NT proBNP was elevated at greater than 9,000, normal lung function, right-sided carotid artery stenosis 40-59%. CT of the chest also noted lobular contour kidneys and recommends further follow-up with ultrasound once recovered from her acute coronary syndrome. ? ? INTERVAL EVENTS / PERTINENT ROS: Following a thorough workup and Brillinta elimination, she underwent CABG ?[address] Rivera. Her postoperative recovery has been remarkable for acute on chronic kidney injury, atrial fibrillation with RVR on amiodarone, metoprolol, OAC deferred for now. Discharge planning is underway, she wishes to discharge to [facility] acute rehabilitation. They have accepted, insurance prior authorization is not required. She is held over due to SHA on CKD with fluid volume overload. Today, she is seen ambulating in the ashraf as well as resting in her chair. She reports she is feeling better today than she did yesterday and she continues to voice her plan is to go to [facility] acute rehabilitation. Objective Admission Weight: 73.3 kg (161 lb 9.6 oz) BP 114/95 Pulse 74 Temp 36.6 ?C (97.9 ?F) (Oral) Resp 18 Ht 160 cm (5' 3) Wt 80.8 kg (178 lb 2.1 oz) SpO2 98% BMI 31.55 kg/m? Body surface area is 1.9 meters squared. Min/Max/Average Temperature AND Blood Pressure: Temp (24hrs), Av.7 ?C (98 ?F), Min:36.4 ?C (97.5 ?F), Max:37.4 ?C (99.3 ?F) Systolic (24hrs), Av , Min:114 , Max:149 Diastolic (24hrs), Av, Min:56, Max:95 No intake or output data in the 24 hours ending 01/15/20 1319 TELEMETRY: normal sinus rhythm PHYSICAL EXAM: General Appearance: well developed and no distress Skin: Midsternal incision dry AND intact., SVG incisions dry AND intact. and warm Lungs: clear and respiratory effort: normal Heart: S1, S2 normal and no murmur Peripheral Vascular/Arteries: pulses intact Abdomen: soft, round, non-tender and bowel sounds present Extremities: normal exam of the extremities Lines, Drains, and Airways Line Peripheral 01/03/20 1849 Admission to Hospital Short Left Forearm 20 Gauge 11 days Peripheral 01/04/20 1618 Short Right Antecubital 20 Gauge 10 days Airway Airway Endotracheal Tube -- days DATA: Diagnostic tests reviewed for today's visit: Significant Lab Results: As Below Chest X-RAY: . RESULT: Lines, tubes, and devices: ?Sternotomy wires Lungs and pleura: ?Pleural and parenchymal changes left lower chest. No lung mass. No pleural effusion. No pneumothorax. Cardiomediastinal silhouette: ?Normal cardiomediastinal silhouette. Recent Labs 01/15/20 0940 01/14/20 0523 01/13/20 0505 RBC -- 3.38* 3.60* WBC -- 11.07* 15.23* HB -- 10.1* 10.8* HCT -- 31.8* 33.4* PLT -- 209 188 NA 137 138 136 K 3.9 4.3 4.3 CHLOR 107 111* 107 CO2 23 20* 22 BUN 41* 47* 49* CREAT 1.62* 1.82* 1.93* GLUC 300* 124* 134* CA 8.3* 8.3* 8.3* ANION 11 11 11 Assessment/Plan NSTEMI/ CAD -s/p CABG x 4 (ghosh-lad sequenced with diag; svg-om, rpl; evh);?POD#6 -ASA?to 162,?continue?atorvasta tin?40, Metoprolol 50 mg XR bid -Add Plavix for AM -wires (V cut and A pulled) -Vest (DM, BMI > 30, CKD)? -Remove?central line? -Bowel regimen?increased -Pain control per ERAS -IS/ PT/ OT ? Atrial fibrillation RVR -Currently NSR -Rhythm/rate control with amiodarone?(400 TID)? -Start metoprolol succinate 50 mg BID -Consider 100 mg daily for discharge -Defer OAC since in NSR; if recurrent then start Eliquis at 2.5 mg BID (age> 80/ Cr > 1.5) -CHADS2 score: 6 -[id number] VASc score: 9 ? Volume overload ?- 80.8/73.3 +7 kg -torsemide per nephro at 10 mg -Repeat BMP ? Anticipated post-op respiratory insufficiency -2/2 atelectasis and effusion -On RA -Pulm toilet increased by PCCM with flutter valve and mucomyst -Continue to use IS/ ambulate -2 view in future? ? Leukocytosis -11.07 and trending down? -Afebrile -Monitor ? Thrombocytopenia -209; resolved? ? Acute blood loss anemia -2/2 OR -Hgb?trending up at?10.1 -No indication for transfusion ? A/CKD -Nephro following: -Torsemide 10 mg -Cr?stable at 1.62 (1.82 1.93; peaked at 1.96) ? DM2 -Endo?following? -Appreciate recs ? HFrEF -2/2 ICM -EF 30% -torsemide 10 mg daily -change to Metoprolol Succinate BID -Defer ACEi until Cr?at baseline ? HTN -Defer?ACEi?(see SHA)? -Home: Lisinopril 40, Amlodipine 10, Coreg 6.25 -Resume low dose amlodipine 2.5 ? HLD -Atorvastatin? ? DVT ppx -Lovenox?(30mg for CrCl < 30) -Cont SCD to LLE (pain with RLE)? ? GI ppx -Protonix? ? Remote Hx of CVA ? Cardiac Rehab: Educated or reinforced with patient cardiac risk factors, home activity recommendations, BP/pulse monitoring, symptom management, and follow- up appointment scheduling. Patient and/or family verbalizes understanding. ? DISPO: Acute Rehab. [facility] has Accepted, no insurance auth required. May discharge when medically ready, likely 24 hours. Tests/Labs Ordered: 1. BMP SIGNATURE: Erin Lanier APRN.CNP PATIENT NAME: Concha Woodward DATE: January 15, 2020 TIME: 1:19 PM PAGER/CONTACT #: [phone] [id number] Patient seen this AM with RN FACULTY and data and careplan discussed with patient. P-cont diuresis today with discharge planning for AM to [place] acute rehab/transitional unit. Normal [facility] PROGRESS HNO ID: [id number] Author: Cesar Burroughs Service: Nephrology Author Type: Physician Type: Progress Notes Filed: 01/15/2020 6:11 PM Note Text: [facility] Nephrology Progress Note Subjective/ INTERVAL HISTORY: We are seeing the patient for issues with SHA and ?New onset CHF Seen and examined No complaints overnight Scr starting to improve BP is stable No CP SOB is improving S/p CABG on 01/08 UOP is adequate No change in the PFSH at this time ROS is (-) unless mentioned Objective/ 01/14/20 2300 01/15/20 0600 01/15/20 0617 01/15/20 0920 BP: 131/87 149/64 Pulse: 84 77 76 Resp: 18 18 18 Temp: 36.4 ?C (97.5 ?F) 37.4 ?C (99.3 ?F) TempSrc: Oral Oral SpO2: 95% 95% 95% Weight: 80.8 kg (178 lb 2.1 oz) Height: 24HR INTAKE/OUTPUT: No intake or output data in the 24 hours ending 01/15/20 1129 ? Constitutional:??extuba petar, in chair, awake, alert, NAD HEAD, EYES, ENT: ?No pallor. ?No cyanosis. ?No icterus. ?Mucous membranes of mouth ?were moist. NECK: ?Otherwise supple. ?Hard for me to see a jugular vein distention elevation. ?LUNGS: ?Clear to auscultation. ?No rales. CARDIOVASCULAR: ?S1, S2. ?No rubs or gallops.CT are noted ABDOMEN: ?Soft, obese, nontender. ?Bowel sounds are heard. EXTREMITIES: ?No peripheral edema. SKIN: ?Otherwise warm and moist. PSYCH: ?Normal affect. ?Does not appear to be anxious, depressed, or agitated. with park noted Good urine Current Facility-Administered Medications Medication Dose Route Frequency - polyethylene glycol 3350 17 g packet (MIRALAX, GLYCOLAX) 17 g ORAL DAILY PRN - metoprolol succinate ER 50 mg tab(s) (TOPROL XL) 50 mg ORAL BID - amLODIPine 2.5 mg tab(s) (NORVASC) 2.5 mg ORAL DAILY - guaiFENesin 600 mg ER tab(s) (MUCINEX) 600 mg ORAL q 12 H - albuterol 2.5 mg /3 mL (0.083 %) 2.5 mg (PROVENTIL) 2.5 mg INHALATION TID - torsemide 10 mg tab(s) (DEMADEX) 10 mg ORAL DAILY - clopidogrel 75 mg tab(s) (PLAVIX) 75 mg ORAL DAILY - aspirin 81 mg chewable tab(s) 81 mg ORAL DAILY - insulin lispro 8 Units pen (rapid acting) (HumaLOG KWIKPEN) 8 Units SUBCUTANEOUS w MEALS - dextrose 40 % 15 g 15 g ORAL PRN Or - glucagon 1 mg injection (GLUCAGEN) 1 mg INTRAMUSCULAR PRN Or - dextrose 50% in water 25 mL syringe 12.5 g INTRAVENOUS PRN - insulin lispro pen (rapid acting) (HumaLOG KWIKPEN) SUBCUTANEOUS w MEALS - acetylcysteine 200 mg/mL (20 %) 200 mg (MUCOMYST) 200 mg INHALATION BID - senna-docusate 8.6-50 mg 2 tablet (SENNA-S) 2 tablet ORAL BID - NaCl 0.9% 2-10 mL 2-10 mL INTRAVENOUS q 12 H - melatonin 3 mg tab(s) 3 mg ORAL HS PRN - traMADol 50-100 mg tab(s) (ULTRAM) 50-100 mg ORAL q 12 H PRN - amiodarone 400 mg tab(s) (PACERONE) 400 mg ORAL TID - enoxaparin 30 mg injection (LOVENOX) 30 mg SUBCUTANEOUS q 24 HR - insulin glargine 8 Units pen (long acting) (LANTUS SOLOSTAR, BASAGLAR KWIKPEN) 8 Units SUBCUTANEOUS DAILY (8 AM) - pantoprazole DR 40 mg tab(s) (PROTONIX) 40 mg ORAL DAILY (6 AM) - acetaminophen 1,000 mg tab(s) (TYLENOL) 1,000 mg ORAL/FEEDING TUBE q 6 H - albuterol 2.5 mg /3 mL (0.083 %) 2.5 mg (PROVENTIL) 2.5 mg INHALATION q 2 H PRN - atorvastatin 40 mg tab(s) (LIPITOR) 40 mg ORAL AT BEDTIME - ondansetron (PF) 4 mg injection (ZOFRAN) 4 mg INTRAVENOUS q 6 H PRN - lidocaine 4 % 1 Patch (SALONPAS) 1 Patch TRANSDERMAL DAILY And - lidocaine patch - REMOVE OTHER AT BEDTIME And - lidocaine - VERIFY PATCH OTHER q 8 H - bisacodyl 10 mg suppository (DULCOLAX) 10 mg RECTAL DAILY PRN - magnesium oxide 400 mg tab(s) (MAG-OX) 400 mg ORAL DAILY Data/ CBC, Coags, BMP, Mg, Phos Recent Labs 01/15/20 0940 01/14/20 0523 01/13/20 0505 WBC -- 11.07* 15.23* HB -- 10.1* 10.8* HCT -- 31.8* 33.4* PLT -- 209 188 NA 137 138 136 K 3.9 4.3 4.3 CHLOR 107 111* 107 CO2 23 20* 22 BUN 41* 47* 49* CREAT 1.62* 1.82* 1.93* GLUC 300* 124* 134* CA 8.3* 8.3* 8.3* Assessment/ 84 year old female who presents with ? 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 I agree with his assessment and recommendations. Any variance is noted as below. Normal [facility] THERAPY NTon 01-15-2020 THERAPY NT HNO ID: [id number] Author: Franci (PtJohn Wong Service: Physical Therapy Author Type: Physical Therapist Type: Therapy (PT/OT/Speech/Resp) Filed: 01/15/2020 2:22 PM Note Text: Physical Therapy Treatment SERVICE DATE: 01/15/2020 SERVICE TIME: 1103 to 1130 ROOM: [id number] Recommended Discharge Disposition: Acute Rehab Recommended Discharge Disposition Comments: Patient below baseline of indoependence and would benefit from Acute Rehab prior to discharge home to improve ambulation toelrance and strength for improved safety and indpendence and progression towards prior level of function Justification For Post Acute Needs: Anticipate patient will tolerate 3 hours of daily therapy at the time of admission to post-acute setting;Cognition intact;Good family support;Living the community premorbidly;Motivated;W illing to participate PT Recommendations to Nursing: Ambulate with device;To bathroom;In halls;Transfer to/from chair;OOB for Meals;With assist of 1 person Device: Wheeled Walker PT 6 Clicks Score: 15 Precautions/Activity Restrictions: Fall Risk Isolation Type: None ASSESSMENT : Patient progressing well towards goals at this time. She is able to significantly improve ambulation distance/tolerance since last session, however requires frequent standing rest breaks to complete ambulation. Requires moderate assist with bed mobility. Recalls most sternal precautions, however does require cues with functional mobility. Patient would benefit from additional physical therapy to address deficits, improve strength/balance/mobili ty. Recommend acute rehab at discharge. Patient Disposition at Start of Session: OOB in Chair;Call [facility] in Reach Patient Disposition at End of Session: OOB in Chair;Call [facility] in Reach Tolerated Full Session Without limitations Physical Therapy Problem List: Education Deficit;Decreased Activity Tolerance;Decreased Strength;Functional Mobility Impairment;Balance Impaired Patient /Caregiver Goals: Go Home Goals for Plan of Care: Able to perform HEP with: Independent Transfer sit to/from stand with: Independent Ambulate with: Independent Distance: 50 Device: No Device Ambulate up and down steps with: Contact Guard Assistance Number of steps: 2 Device: Rail Progress Toward Goals: Progressing as expected Rehab Potential: Good PLAN: Treatment Frequency (times per week): 5(3-5) Current admission Treatment Interventions: Energy Conservation Training;Strengthening; Functional Mobility Training;Balance Training Plan of Care developed with: Patient TREATMENT INTERVENTIONS: Therapy Diagnosis: Muscle Weakness (generalized);Unsteadin ess on feet Interventions Provided: Therapeutic Activity (57797);Gait Training (53967) Therapeutic Activity (37954) Treatment Minutes: 10 1 unit Skilled Intervention(s): Education on sternal precautions - no pushing, no pulling, no lifting more than 5-10lbs, no overhead motion, no reaching back. Patient demonstrates fair understanding. Education on sternal precautions during functional mobility - no pushing, reaching forward or behind with upper extremities, use cough pillow to brace sternum when moving or coughing. Patient demonstrates fair understanding. Education and cues for log roll technique for bed mobility. Patient requires moderate assist and demonstrates fair understanding. Gait Training (61592) Treatment Minutes: 15 1 unit Skilled Intervention(s): Education and cues for appropriate transfers. Instructed patient to cross arms over chest and initiate standing by pushing through bilateral lower extremities and utilizing momentum and forward weight shift as needed. Patient requires contact guard assist and demonstrates fair understanding. Cues to back up to surface and feel surface behind legs. Cues to cross arms over chest and bend at waist for bowing motion. Patient requires contact guard assist and demonstrates fair understanding. Gait Education: Patient educated on energy conservation with ambulation and planning of rest breaks. Pt also educated on use of Front wheeled walker to decrease fall risk. Front wheeled walker sized appropriately for patient height prior to initiation of activity. Cues for upright posture during ambulation. Vitals monitored during gait. Cues for deep breathing as appropriate. Cues for pacing as appropriate. Total Timed Code Treatment Minutes: 25 Total Treatment Time (minutes): 25 SUBJECTIVE: Current Hospital Course: Chart reviewed and no significant medical updates relevant to therapy were noted Reason for Physical Therapy Consult : eval and treat Relevant Past Medical History: stroke, DM2, CAD, HTN, HLD Patient Report: I'm tired today. agreeable to physical therapy . Denies pain. No family present. Home Environment Patient Lives With: Spouse Assistance Available: 24 Hour Entry To Home: Stairs;With Rail Number Of Stairs Into Home: 2 Number Of Stairs To Bed/Bath: Full flight Stairs to Bed/Bath with: Bilateral Rail Tub/Shower Type: Walk-in shower Laundry: Basement Equipment Owned: Shower Chair Prior Functional Level: Within Functional Limits Prior Functional Level Comments: Pt reports independent with ADLs and IADLs prior to admission. No device, drives, volunteers OBJECTIVE: CURRENT FUNCTIONAL STATUS: Current Functional Mobility Assist Level Additional Information Rolling Moderate Assistance Supine to Sit Moderate Assistance Sit to Supine Moderate Assistance Scooting Sit to Stand Contact Guard Assistance Stand to Sit Contact Guard Assistance Bed to Chair Toilet/Commode Minimal Assistance Gait Contact Guard Assistance Gait Device: Wheeled Walker Gait Distance (feet): 50ft intervals Stairs Curb Step Car Transfer General Deviations/Observations : Jeffrey decreased;Flexed trunk posture;Non-functional gait speed;Step length decreased Balance: Static Sitting;Dynamic Sitting;Static Standing;Dynamic Standing Static Sitting Balance: Good Patient able to maintain balance without handhold support, limited postural sway Dynamic Sitting Balance: Good Patient accepts moderate challenge, able to maintain balance while picking up object off floor Static Standing Balance: Fair Patient able to maintain balance with handhold support, may require occasional minimal assistance Dynamic Standing Balance: Fair Patient accepts minimal challenge, able to maintain balance while turning head/trunk Activity Tolerance: Standing Activity Standing Activity: gait Standing Activity Tolerance (in minutes): 10 JH-HLM: 8: Walk 250 feet or more Please see discipline specific clinical documentation flowsheet for complete details for this therapy evaluation/treatment. SIGNATURE: Franci Wong PT PATIENT NAME: Concha Woodward DATE: January 15, 2020 TIME: 2:18 PM Normal [facility] XR CHEST 2V FRONTAL/LATon XR CHEST 2V FRONTAL/LAT * * *Final Repor t* * * DATE OF EXAM: Jan 15 2020 7:39AM AKX [id number] - XR CHEST 2V FRONTAL/LAT / PROCEDURE REASON: Post-operative / post-procedure assessment, symptomatic * * * * Physician Interpretation * * * * EXAMINATION: CHEST RADIOGRAPH (2 VIEW FRONTAL & LATERAL) CLINICAL HISTORY: Post-operative / post-procedure assessment, symptomatic status post CABG 2 weeks ago MQ: [id number] EXAM DATE/TIME: 01/15/2020 7:39 AM COMPARISON: 01/13/2020 RESULT: Lines, tubes, and devices: Sternotomy wires Lungs and pleura: Pleural and parenchymal changes left lower chest. No lung mass. No pleural effusion. No pneumothorax. Cardiomediastinal silhouette: Normal cardiomediastinal silhouette. Bones and soft tissues: Unremarkable. IMPRESSION: Pleural and parenchymal changes left lower chest Removal right IJ vascular sheath. No measurable pneumothorax is seen Web Developer: KURT Transcribe Date/Time: Jan 15 2020 7:51A Dictated by : MARCO VICENTE MD This examination was interpreted and the report reviewed and electronically signed by: MARCO VICENTE MD on Jan 15 2020 7:53AM EST Normal [facility] Basic Panelon 01-14-2020 Creatinine [Mass/Vol] 1.82 mg/dL High 0.51-0.95 [facility] Comment on above: Result Comment: Use of this assay is not recommended for patients undergoing treatment with phenindione, due to the potential for falsely depressed results. Performed By: #### G LMET #### [facility] [address] [place], [place] [address] Anion gap [Moles/Vol] 11 mmol/L Normal 8-16 [facility] Comment on above: Performed By: #### G LMET #### [facility] [address] [place], [place] [address] CO2 [Moles/Vol] 20 mmol/L Low 21-32 [facility] Comment on above: Performed By: #### G LMET #### [facility] [address] [place], [place] [address] Urea nitrogen [Mass/Vol] 47 mg/dL High 7-18 [facility] Comment on above: Performed By: #### G LMET #### [facility] [address] [place], [place] [address] Calcium [Mass/Vol] 8.3 mg/dL Low 8.5-10.1 [facility] Comment on above: Performed By: #### G LMET #### [facility] [address] [place], [place] [address] Glucose [Mass/Vol] 124 mg/dL High 70-99 [facility] Comment on above: Performed By: #### G LMET #### [facility] [address] [place], [place] [address] Chloride [Moles/Vol] 111 mmol/L High 98-107 [facility] Comment on above: Performed By: #### G LMET #### [facility] [address] [place], [place] [address] Potassium [Moles/Vol] 4.3 mmol/L Normal 3.5-5.1 [facility] Comment on above: Performed By: #### G LMET #### [facility] [address] [place], [place] [address] Sodium [Moles/Vol] 138 mmol/L Normal 136-145 [facility] Comment on above: Performed By: #### G LMET #### [facility] [address] [place], [place] [address] CONSULT PROGon 01-14-2020 CONSULT PROG HNO ID: [id number] Author: Eileen Jones Service: Endocrinology Author Type: Physician Type: Consult Progress Note Filed: 01/14/2020 1:42 PM Note Text: ENDOCRINOLOGY CONSULT PROGRESS NOTE SERVICE DATE: 01/14/2020 SERVICE TIME: 1:30 PM Subjective INTERVAL HPI: followed for DM type 2, on insulin MDI; can not tolerate metformin due to diarrhea; has CAD; s/p CABG. 01/09/2020 She was admitted to [facility] with chest pain and was found to have coronary artery disease. Patient has history of angioplasty 30 years ago. ?H/o CAD and remote FL now admitted with NSTEMI who is found to have severe MV CAD and ischemic CM with EF 30%, no CHF, in a setting of DM, HTN, HLD, CKD, remote CVA. Regarding diabetes, patient has history of type 2 diabetes for about 5 years. At home, patient takes Basaglar 9 units every morning and she takes NovoLog 8 units for breakfast and dinner and 6 units for lunch. Her A1c was 7.6 on December 25, now her A1c is 8.4. s/p CABG was on IV insulin gtt per CABG protocol now off; off of pressors; better po intake. Tr to floor on 01/12. Eating fruit ice, not taking Boost! DIET HEART HEALTHY Recent Labs 01/14/20 1129 01/14/20 0736 01/14/20 0523 01/13/20 1643 01/13/20 0505 01/12/20 0625 GLUC -- -- 124* -- -- 134* -- 173* GLUCOSEMETER 145* 129* -- 171* < > -- < > -- < > = values in this interval not displayed. Current Facility-Administered Medications Medication Dose Route Frequency - acetaminophen 1,000 mg tab(s) (TYLENOL) 1,000 mg ORAL/FEEDING TUBE q 6 H - albuterol 2.5 mg /3 mL (0.083 %) 2.5 mg (PROVENTIL) 2.5 mg INHALATION q 2 H PRN - atorvastatin 40 mg tab(s) (LIPITOR) 40 mg ORAL AT BEDTIME - ondansetron (PF) 4 mg injection (ZOFRAN) 4 mg INTRAVENOUS q 6 H PRN - lidocaine 4 % 1 Patch (SALONPAS) 1 Patch TRANSDERMAL DAILY And - lidocaine patch - REMOVE OTHER AT BEDTIME And - lidocaine - VERIFY PATCH OTHER q 8 H - bisacodyl 10 mg suppository (DULCOLAX) 10 mg RECTAL DAILY PRN - magnesium oxide 400 mg tab(s) (MAG-OX) 400 mg ORAL DAILY - polyethylene glycol 3350 17 g packet (MIRALAX, GLYCOLAX) 17 g ORAL DAILY - pantoprazole DR 40 mg tab(s) (PROTONIX) 40 mg ORAL DAILY (6 AM) - insulin glargine 8 Units pen (long acting) (LANTUS SOLOSTAR, BASAGLAR KWIKPEN) 8 Units SUBCUTANEOUS DAILY (8 AM) - amiodarone 400 mg tab(s) (PACERONE) 400 mg ORAL TID - aspirin 162 mg chewable tab(s) 162 mg ORAL DAILY - enoxaparin 30 mg injection (LOVENOX) 30 mg SUBCUTANEOUS q 24 HR - insulin lispro 6 Units pen (rapid acting) (HumaLOG KWIKPEN) 6 Units SUBCUTANEOUS w MEALS - dextrose 40 % 15 g 15 g ORAL PRN Or - glucagon 1 mg injection (GLUCAGEN) 1 mg INTRAMUSCULAR PRN Or - dextrose 50% in water 25 mL syringe 12.5 g INTRAVENOUS PRN - insulin lispro pen (rapid acting) (HumaLOG KWIKPEN) SUBCUTANEOUS w MEALS - albuterol 2.5 mg /3 mL (0.083 %) 2.5 mg (PROVENTIL) 2.5 mg INHALATION QID - acetylcysteine 200 mg/mL (20 %) 200 mg (MUCOMYST) 200 mg INHALATION BID - senna-docusate 8.6-50 mg 2 tablet (SENNA-S) 2 tablet ORAL BID - NaCl 0.9% 2-10 mL 2-10 mL INTRAVENOUS q 12 H - melatonin 3 mg tab(s) 3 mg ORAL HS PRN - traMADol 50-100 mg tab(s) (ULTRAM) 50-100 mg ORAL q 12 H PRN - metoprolol succinate ER 50 mg tab(s) (TOPROL XL) 50 mg ORAL BID - metoprolol tartrate (short acting) 50 mg tab(s) (LOPRESSOR) 50 mg ORAL q 8 H - amLODIPine 2.5 mg tab(s) (NORVASC) 2.5 mg ORAL DAILY - guaiFENesin 600 mg ER tab(s) (MUCINEX) 600 mg ORAL q 12 H Objective PHYSICAL EXAM:BP 136/54 Pulse 70 Temp (Src) 97.3 (Oral) Resp 16 Ht 5' 3 (1.60m) Wt 179 lb 11.2 oz (81.5kg) SpO2 100% BMI 31.84 kg/(m2). O2 Therapy: Room Air NAD, sitting up in chair Lungs: clear, has a vset CVS: RRR Abd: soft Ext: No edema DATA: Diagnostic tests reviewed for today's visit: Most recent labs and imaging results. Assessment/Plan Diabetes mellitus type 2; HbA1c 8.4; was on lantus 12 units daily am and humalog 8 units qac tid plus correction pre-op. Was on iv insulin gtt per CABG protocol; BS 68 mg/dl; poor po intake; off of pressors; On prandial humalog 8 units qac tid, decreased to 4 units qac tid and lantus 8 units daily; d/c iv insulin gtt on 01/10 and Lantus resumed; S creat up. Humalog increased on 01/11. Cont Lantus 8 units daily am and Humalog 6 units qac tid plus correction SHA/CKS stage III; S creat 1.9(1.9)1.8)(1.55)(1.26 )(1.44)(1.46)(1.8)(2.1) (baseline 1.3) ACS (acute coronary syndrome) (HCC) POA: Yes Assessment AND Plan: EF 30%; s/p CABG 01/09/2020 SIGNATURE: Eileen Jones MD PATIENT NAME: Concha Woodward DATE: January 14, 2020 TIME: 1:42 PM PAGER: [phone] Normal [facility] Hemogramon 01-14-2020 Erythrocyte distribution width (RBC) [Ratio] 15.1 % High 11.7-14.4 [facility] Comment on above: Performed By: #### G LMET #### [facility] [address] [place] [address] Hematocrit (Bld) [Volume fraction] 31.8 % Low 34.1-44.9 [facility] Comment on above: Performed By: #### G LMET #### [facility] [address] [place] [address] Hemoglobin (Bld) [Mass/Vol] 10.1 g/dL Low 11.2-15.7 [facility] Comment on above: Performed By: #### G LMET #### [facility] [address] [place] [address] MCH (RBC) [Entitic mass] 29.9 pg Normal 25.6-32.2 [facility] Comment on above: Performed By: #### G LMET #### [place] [address] MCHC (RBC) [Mass/Vol] 31.8 % Normal 31.6-34.8 [facility] Comment on above: Performed By: #### G LMET #### [facility] [address] [place] [address] MCV (RBC) [Entitic vol] 94.1 fL Normal 79.4-94.8 [facility] Comment on above: Performed By: #### G LMET #### [facility] [address] [place] [address] Platelet mean volume (Bld) [Entitic vol] 11.8 fL Normal 9.4-12.3 [facility] Comment on above: Performed By: #### G LMET #### [facility] [address] [place], [place] [address] Platelets (Bld) [#/Vol] 209 thou/cmm Normal 182-369 [facility] Comment on above: Performed By: #### G LMET #### [facility] [address] [place] [address] RBC (Bld) [#/Vol] 3.38 mil/cmm Low 3.93-5.22 [facility] Comment on above: Performed By: #### G LMET #### [facility] [address] [place], [place] [address] RDW SD 51.5 fl High 36.4-46.3 [facility] Comment on above: Performed By: #### G LMET #### [facility] [address] [place], [place] [address] WBC (Bld) [#/Vol] 11.07 thou/cmm High 3.98-10.04 [facility] Comment on above: Performed By: #### G LMET #### [facility] [address] [place] [address] PROGRESSon 01-14-2020 PROGRESS HNO ID: [id number] Author: Cesar Burroughs Service: Nephrology Author Type: Physician Type: Progress Notes Filed: 01/14/2020 2:53 PM Note Text: [facility] Nephrology Progress Note Subjective/ INTERVAL HISTORY: We are seeing the patient for issues with SHA and ?New onset CHF Cr is?up still Peaked ? Denies any SOB, up in the chair S/p CABG?on 01/08 All labs / data/ chart and interval events are noted BP has been stable No issues with urine output Now on floor Responding to current rx at this time No other new issues No change in the PFSH at this time ROS is (-) unless mentioned Objective/ 01/14/20 0514 01/14/20 0831 01/14/20 0836 01/14/20 0901 BP: 139/66 145/60 Pulse: 72 65 66 69 Resp: 18 16 16 18 Temp: 36.3 ?C (97.3 ?F) 36.5 ?C (97.7 ?F) TempSrc: Oral Oral SpO2: 95% 98% 99% 99% Weight: Height: 24HR INTAKE/OUTPUT: No intake or output data in the 24 hours ending 01/14/20 0954 ? Constitutional:??extuba petar, in chair, awake, alert, NAD HEAD, EYES, ENT: ?No pallor. ?No cyanosis. ?No icterus. ?Mucous membranes of mouth ?were moist. NECK: ?Otherwise supple. ?Hard for me to see a jugular vein distention elevation. ?LUNGS: ?Clear to auscultation. ?No rales. CARDIOVASCULAR: ?S1, S2. ?No rubs or gallops.CT are noted ABDOMEN: ?Soft, obese, nontender. ?Bowel sounds are heard. EXTREMITIES: ?No peripheral edema. SKIN: ?Otherwise warm and moist. PSYCH: ?Normal affect. ?Does not appear to be anxious, depressed, or agitated. with park noted Good urine Current Facility-Administered Medications Medication Dose Route Frequency - furosemide 40 mg tab(s) (LASIX) 40 mg ORAL ONCE - amLODIPine 2.5 mg tab(s) (NORVASC) 2.5 mg ORAL DAILY - insulin lispro 6 Units pen (rapid acting) (HumaLOG KWIKPEN) 6 Units SUBCUTANEOUS w MEALS - dextrose 40 % 15 g 15 g ORAL PRN Or - glucagon 1 mg injection (GLUCAGEN) 1 mg INTRAMUSCULAR PRN Or - dextrose 50% in water 25 mL syringe 12.5 g INTRAVENOUS PRN - insulin lispro pen (rapid acting) (HumaLOG KWIKPEN) SUBCUTANEOUS w MEALS - albuterol 2.5 mg /3 mL (0.083 %) 2.5 mg (PROVENTIL) 2.5 mg INHALATION QID - acetylcysteine 200 mg/mL (20 %) 200 mg (MUCOMYST) 200 mg INHALATION BID - senna-docusate 8.6-50 mg 2 tablet (SENNA-S) 2 tablet ORAL BID - NaCl 0.9% 2-10 mL 2-10 mL INTRAVENOUS q 12 H - melatonin 3 mg tab(s) 3 mg ORAL HS PRN - traMADol 50-100 mg tab(s) (ULTRAM) 50-100 mg ORAL q 12 H PRN - amiodarone 400 mg tab(s) (PACERONE) 400 mg ORAL TID - aspirin 162 mg chewable tab(s) 162 mg ORAL DAILY - enoxaparin 30 mg injection (LOVENOX) 30 mg SUBCUTANEOUS q 24 HR - insulin glargine 8 Units pen (long acting) (LANTUS SOLOSTAR, BASAGLAR KWIKPEN) 8 Units SUBCUTANEOUS DAILY (8 AM) - pantoprazole DR 40 mg tab(s) (PROTONIX) 40 mg ORAL DAILY (6 AM) - acetaminophen 1,000 mg tab(s) (TYLENOL) 1,000 mg ORAL/FEEDING TUBE q 6 H - albuterol 2.5 mg /3 mL (0.083 %) 2.5 mg (PROVENTIL) 2.5 mg INHALATION q 2 H PRN - atorvastatin 40 mg tab(s) (LIPITOR) 40 mg ORAL AT BEDTIME - ondansetron (PF) 4 mg injection (ZOFRAN) 4 mg INTRAVENOUS q 6 H PRN - lidocaine 4 % 1 Patch (SALONPAS) 1 Patch TRANSDERMAL DAILY And - lidocaine patch - REMOVE OTHER AT BEDTIME And - lidocaine - VERIFY PATCH OTHER q 8 H - bisacodyl 10 mg suppository (DULCOLAX) 10 mg RECTAL DAILY PRN - magnesium oxide 400 mg tab(s) (MAG-OX) 400 mg ORAL DAILY - polyethylene glycol 3350 17 g packet (MIRALAX, GLYCOLAX) 17 g ORAL DAILY Data/ CBC, Coags, BMP, Mg, Phos Recent Labs 01/14/20 0523 01/13/20 0505 01/12/20 0625 WBC 11.07* 15.23* 17.62* HB 10.1* 10.8* 10.3* HCT 31.8* 33.4* 32.6* PLT 209 188 124* NA 138 136 136 K 4.3 4.3 4.7 CHLOR 111* 107 106 CO2 20* 22 23 BUN 47* 49* 46* CREAT 1.82* 1.93* 1.96* GLUC 124* 134* 173* CA 8.3* 8.3* 8.2* Assessment/ 84 year old female who presents with ? 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 We will follow Avoid all renal toxins Dose meds for GFR < 30 Normal [facility] PROGRESS HNO ID: [id number] Author: Yanet Rivera Service: Cardiac Surgery Author Type: Physician Type: Progress Notes Filed: 01/14/2020 3:59 PM Note Text: CARDIOTHORACIC SURGERY POSTOP PROGRESS NOTE SERVICE DATE: 01/14/2020 SERVICE TIME: 8:57 AM Subjective S/P SURGERY: Procedure(s) (LRB): CABG x 4 (GHOSH [id number] to diagonal, end-to-side to LAD in sequential fashion, SVG qiqr-wb-scol to OM, and end-to-side of PLB of the RCA, rEVH) DATE OF SURGERY: 01/09/2020 POSTOP DAY #5 LOS: 11 HPI: Concha Woodward is an 84-year-old woman from [facility] who transferred to [facility] with NSTEMI and found to have multivessel coronary artery disease with decreased EF 30%. She is a history of CAD (status post angioplasty 30 years ago), DM, HTN, HLD, remote CVA with left-sided weakness, CK 80 (baseline creatinine 1.4-1.5). She denies any history of CHF. At presentation she complained of upper respiratory symptoms, and was treated with amoxicillin. At [facility] she was loaded with Brillinta. During the Brillinta wash, she underwent a complete workup at [facility]. She was found to have multiple wall motion abnormalities including akinetic inferior septal wall, 2+ MR. Further NT proBNP was elevated at greater than 9,000, normal lung function, right-sided carotid artery stenosis 40-59%. CT of the chest also noted lobular contour kidneys and recommends further follow-up with ultrasound once recovered from her acute coronary syndrome. INTERVAL EVENTS / PERTINENT ROS: Following a thorough workup and Brillinta elimination, she underwent CABG ?[address] Rivera. Her postoperative recovery has been remarkable for acute on chronic kidney injury, atrial fibrillation with RVR on amiodarone, metoprolol, OAC deferred for now. Discharge planning is underway, she wishes to discharge to [facility] acute rehabilitation. They have accepted, insurance prior authorization is not required. Today,She reports she is doing well. She is ready to move along to the next phase of care. He plan is to go to [facility] acute Objective Admission Weight: 73.3 kg (161 lb 9.6 oz) BP 139/66 Pulse 66 Temp 36.3 ?C (97.3 ?F) (Oral) Resp 16 Ht 160 cm (5' 3) Wt 81.5 kg (179 lb 11.2 oz) SpO2 99% BMI 31.83 kg/m? Body surface area is 1.9 meters squared. Min/Max/Average Temperature AND Blood Pressure: Temp (24hrs), Av.5 ?C (97.7 ?F), Min:36.3 ?C (97.3 ?F), Max:36.8 ?C (98.2 ?F) Systolic (24hrs), Av , Min:106 , Max:141 Diastolic (24hrs), Av, Min:52, Max:85 Intake/Output Summary (Last 24 hours) at 01/14/2020 0853 Last data filed at 01/13/2020 0900 Gross per 24 hour Intake 120 ml Output 100 ml Net 20 ml TELEMETRY: normal sinus rhythm PHYSICAL EXAM: General Appearance: well developed and no distress Skin: Midsternal incision dry AND intact., SVG incisions dry AND intact., warm and dry Lungs: clear and respiratory effort: normal Heart: S1, S2 normal Peripheral Vascular/Arteries: pulses intact Abdomen: soft, round, non-tender and bowel sounds present Neurologic/Psychiatric: oriented to time, place and person Extremities: normal exam of the extremities and edema: non-pitting Lines, Drains, and Airways Line Peripheral 01/03/20 1849 Admission to Hospital Short Left Forearm 20 Gauge 10 days Peripheral 01/04/20 1618 Short Right Antecubital 20 Gauge 9 days Airway Airway Endotracheal Tube -- days DATA: Diagnostic tests reviewed for today's visit: Significant Lab Results: As below Chest X-RAY: . Worsening L pleural effusion Recent Labs 01/14/20 0523 01/13/20 0505 01/12/20 0625 RBC 3.38* 3.60* 3.45* WBC 11.07* 15.23* 17.62* HB 10.1* 10.8* 10.3* HCT 31.8* 33.4* 32.6* PLT 209 188 124* NA 138 136 136 K 4.3 4.3 4.7 CHLOR 111* 107 106 CO2 20* 22 23 BUN 47* 49* 46* CREAT 1.82* 1.93* 1.96* GLUC 124* 134* 173* CA 8.3* 8.3* 8.2* ANION 11 11 12 Assessment/Plan NSTEMI/ CAD -s/p CABG x 4 (ghosh-lad sequenced with diag; svg-om, rpl; evh);?POD#5 -ASA?to 162,?continue?atorvasta tin?40, metoprolol 25 TID -Add Plavix for AM -wires (V cut and A pulled) -Vest (DM, BMI > 30, CKD)? -Remove central line? -Bowel regimen increased -Pain control per ERAS -IS/ PT/ OT ? Atrial fibrillation RVR -Currently NSR -Rhythm/rate control with amiodarone (400 TID) -Start metoprolol succinate 50 mg BID 2100 for longer beta blockade -Defer OAC since in NSR; if recurrent then start Eliquis at 2.5 mg BID (age> 80/ Cr > 1.5) -CHADS2 score: 6 -[id number] VASc score: 9 Volume overload ?- 81.5/73.3 +8 kg -Lasix 40 mg x 1 -Repeat BMP Anticipated post-op respiratory insufficiency -2/2 atelectasis and effusion -On RA -Pulm toilet increased by PCCM with flutter valve and mucomyst -Continue to use IS/ ambulate -2 view in future ? Leukocytosis -15 and trending down -Afebrile -Monitor ? Thrombocytopenia -206; resolved ? Acute blood loss anemia -2/2 OR -Hgb trending up at 10.8 -No indication for transfusion ? A/CKD -Nephro following: okay for PRN diuresis -Cr?stable at 1.82 (1.93; peaked at 1.96) ? DM2 -Endo?following? -Appreciate recs ? HFrEF -2/2 ICM -EF 30% -change to Metoprolol Succinate BID -Defer ACEi until Cr at baseline ? HTN -Defer?ACEi (see SHA) -Home: Lisinopril 40, Amlodipine 10, Coreg 6.25 -Resume low dose amlodipine 2.5 ? HLD -Atorvastatin? ? DVT ppx -Lovenox?(30mg for CrCl < 30) -Cont SCD to LLE (pain with RLE)? ? GI ppx -Protonix? ? Remote Hx of CVA Cardiac Rehab: Educated or reinforced with patient cardiac risk factors, home activity recommendations, BP/pulse monitoring, symptom management, and follow- up appointment scheduling. Patient and/or family verbalizes understanding. DISPO: Acute Rehab. [facility] has Accepted, no insurance auth required. May discharge when medically ready, likely 24-48 hours. Tests/Labs Ordered: 1. Chest X-ray 2. BMP SIGNATURE: Erin Lanier APRN.CNP PATIENT NAME: Concha Woodward DATE: January 14, 2020 TIME: 8:53 AM PAGER/CONTACT #: [phone] [id number] Patient seen with RN FACULTY this afternoon. Labs, data, and careplan reviewed and d/w patient as well. P-as ordered. Diuresis and placement for acute rehab. Normal [facility] PROGRESS HNO ID: [id number] Author: Gladys Bhakta Service: Pulmonary Disease Author Type: Nurse Practitioner Type: Progress Notes Filed: 01/14/2020 10:25 AM Note Text: Attestation signed by Adryan Kimball at 01/14/2020 2:30 PM I evaluated the patient and personally participated in the gomez components. I agree with the nurse practitioner findings and plan as documented and have discussed the case and management of the patient's care with the nurse practitioner Seen on 4200. Feels great and no SOB, cough, or sputum. Does not wear home O2. PHYSICAL EXAM BP 136/54 Pulse 70 Temp 36.3 ?C (97.3 ?F) (Oral) Resp 16 Ht 160 cm (5' 3) Wt 81.5 kg (179 lb 11.2 oz) SpO2 100% BMI 31.83 kg/m? HEENT: Normocephalic, PERRLA, External ears normal, canals clear. , Nares normal, septum midline, no drainage or sinus tenderness. , Oropharynx grossly normal, trachea midline, no accessory muscle use, good dentition. Neck: No jugulovenous distention, No carotid bruits, Carotid pulse normal contour, Supple Lungs: Clear anteriorly Heart: Normal S1 and S2; no rubs, murmurs, or gallops Abdomen: Abdomen soft, non-tender, BS normal, No masses or organomegaly Extremities: Extremities normal, no deformities, edema, clubbing or skin discoloration. Good capillary refill., No ulcers 01/13/20 CXR: 01/13/2020 6:54 AM - Radiology, [place] In Impression IMPRESSION: Diminished aeration left lung base consistent with atelectasis and probable left-sided pleural effusion. Slightly worse. IMPRESSION: 1. Post-op anticipatory respiratory insufficiency--hypoxia resolved. 2. Mild LLL atelectasis with small effusion 3. S/P CABG x 4 on 01/09/20. 4. SHA on CKDse--Cr trending down slowly 5. IDDM PLAN: Push incentive spirometer. Ambulation Drop HHN Rx to tid. Off O2 now with SaO2 100% on RA. Nothing to add and will sign off. Please call if can be of further help. Adryan Kimball MD January 14, 2020 2:25 PM PULMONARY PROGRESS NOTE [facility] SERVICE DATE: January 14, 2020 SERVICE TIME: 10:17 AM Subjective Patient states feels better today breathing much better. Patient denies shortness of breath, wheezing, cough, phlegm, chest pain, fevers or chills. On room air. OBJECTIVE Current Facility-Administered Medications Medication Dose Route Frequency Provider Last Rate Last Dose - metoprolol succinate ER 50 mg tab(s) (TOPROL XL) 50 mg ORAL BID Erin (Levi Lanier CNP - metoprolol tartrate (short acting) 50 mg tab(s) (LOPRESSOR) 50 mg ORAL q 8 H Erin Lanier CNP - amLODIPine 2.5 mg tab(s) (NORVASC) 2.5 mg ORAL DAILY Erin (Thiago) THIAGO Lanier 2.5 mg at 01/14/20 1015 - insulin lispro 6 Units pen (rapid acting) (HumaLOG KWIKPEN) 6 Units SUBCUTANEOUS lucero Bowers (Pa) Ruhlin 6 Units at 01/13/20 1738 - dextrose 40 % 15 g 15 g ORAL PRN Bowers (Pa) Rufranklinin Or - glucagon 1 mg injection (GLUCAGEN) 1 mg INTRAMUSCULAR PRN Vish Shin) Ruhlin Or - dextrose 50% in water 25 mL syringe 12.5 g INTRAVENOUS PRN Bowers (Pa) Rufranklinin - insulin lispro pen (rapid acting) (HumaLOG KWIKPEN) SUBCUTANEOUS w MEALS Bowers (Pa) Ruhlin 1 Units at 01/13/20 1739 - albuterol 2.5 mg /3 mL (0.083 %) 2.5 mg (PROVENTIL) 2.5 mg INHALATION QID Vish Shin) Ruhlin 2.5 mg at 01/14/20 0831 - acetylcysteine 200 mg/mL (20 %) 200 mg (MUCOMYST) 200 mg INHALATION BID Vish Shin) Ruhlin 200 mg at 01/14/20 0832 - senna-docusate 8.6-50 mg 2 tablet (SENNA-S) 2 tablet ORAL BID Vish Shin) Ruhlin 2 tablet at 01/14/20 09 - NaCl 0.9% 2-10 mL 2-10 mL INTRAVENOUS q 12 H Vish Shin) Ruhlin 10 mL at 01/14/20 0902 - melatonin 3 mg tab(s) 3 mg ORAL HS PRN Vish Shin) Areliin - traMADol 50-100 mg tab(s) (ULTRAM) 50-100 mg ORAL q 12 H PRN Jack Ngo (Pharmacist) - amiodarone 400 mg tab(s) (PACERONE) 400 mg ORAL TID Vish Shin) Ruhlin 400 mg at 01/14/20 0904 - aspirin 162 mg chewable tab(s) 162 mg ORAL DAILY Vish Shin) Ruhlin 162 mg at 01/14/20 09 - enoxaparin 30 mg injection (LOVENOX) 30 mg SUBCUTANEOUS q 24 HR Vish Shin) Ruhlin 30 mg at 01/14/20 09 - insulin glargine 8 Units pen (long acting) (LANTUS SOLOSTAR, BASAGLAR KWIKPEN) 8 Units SUBCUTANEOUS DAILY (8 AM) Vish Shin) Ruhlin 8 Units at 01/14/20 0905 - pantoprazole DR 40 mg tab(s) (PROTONIX) 40 mg ORAL DAILY (6 AM) Vish Shin) Ruhlin 40 mg at 01/14/20 0520 - acetaminophen 1,000 mg tab(s) (TYLENOL) 1,000 mg ORAL/FEEDING TUBE q 6 H Bowers (Pa) Ruhlin 1,000 mg at 01/14/20 0520 - albuterol 2.5 mg /3 mL (0.083 %) 2.5 mg (PROVENTIL) 2.5 mg INHALATION q 2 H PRN Bowers (Pa) Ruhlin - atorvastatin 40 mg tab(s) (LIPITOR) 40 mg ORAL AT BEDTIME Vish Shin) Ruhlin 40 mg at 01/13/20 2324 - ondansetron (PF) 4 mg injection (ZOFRAN) 4 mg INTRAVENOUS q 6 H PRN Bowers (Pa) Ruhlin 4 mg at 01/09/20 2320 - lidocaine 4 % 1 Patch (SALONPAS) 1 Patch TRANSDERMAL DAILY Bowers (Pa) Ruhlin 1 Patch at 01/14/20 0904 And - lidocaine patch - REMOVE OTHER AT BEDTIME Bowers (Pa) Ruhlin And - lidocaine - VERIFY PATCH OTHER q 8 H Bowers (Pa) Ruhlin - bisacodyl 10 mg suppository (DULCOLAX) 10 mg RECTAL DAILY PRN Bowers (Pa) Ruhlin - magnesium oxide 400 mg tab(s) (MAG-OX) 400 mg ORAL DAILY Bowers (Pa) Ruhlin 400 mg at 01/14/20 1015 - polyethylene glycol 3350 17 g packet (MIRALAX, GLYCOLAX) 17 g ORAL DAILY Bowers (Pa) Ruhlin 17 g at 01/13/20 0829 INTAKE AND OUTPUT No intake or output data in the 24 hours ending 01/14/20 1017 New Radiology Films: CXR 01/13/2020 Diminished aeration left lung base consistent with atelectasis and probable left-sided pleural effusion. ?Slightly worse. CXr 01/12/2020 Status post removal of [place]-Veto catheter. ?Left-sided chest tube, mediastinal drain, and pericardial drain have been removed. CT chest 01/05/2020 Thoracic aorta is within normal limits. Widely [...] exam could be obtained in 12 months. New Micro: No new New Labs: BMP: Glucose (mg/dL) Date Value 01/14/2020 124 Potassium (mEq/L) Date Value 01/14/2020 4.3 Sodium (mEq/L) Date Value 01/14/2020 138 Chloride (mEq/L) Date Value 01/14/2020 111 CO2 (mEq/L) Date Value 01/14/2020 20 Creatinine (mg/dL) Date Value 01/14/2020 1.82 BUN (mg/dL) Date Value 01/14/2020 47 Anion Gap (no units) Date Value 01/14/2020 11 Calcium (mg/dL) Date Value 01/14/2020 8.3 CBC: Hemoglobin (g/dL) Date Value 04/11/2019 12.2 04/19/2018 12.4 04/23/2017 13.0 HGB (g/dL) Date Value 01/14/2020 10.1 01/13/2020 10.8 01/12/2020 10.3 Hematocrit (%) Date Value 01/14/2020 31.8 01/13/2020 33.4 01/12/2020 32.6 WBC (thou/cmm) Date Value 01/14/2020 11.07 01/13/2020 15.23 01/12/2020 17.62 Vital Signs 01/14/20 0901 01/14/20 0930 01/14/20 0945 01/14/20 0959 BP: 145/60 143/81 131/85 154/70 Pulse: 69 70 70 70 Resp: 18 18 18 18 Temp: 36.5 ?C (97.7 ?F) TempSrc: Oral SpO2: 99% Weight: Height: PHYSICAL EXAM: Vitals: Reviewed above. Patient is on room air GENERAL: AAOx3, pleasant, resting up in bedside recliner, NAD RESPIRATORY: diminished but otherwise CTAB. Respirations are even AND unlabored at rest. No wheezing, accessory muscle use, pursed lip breathing or conversational dyspnea. CARDIOVASCULAR: Normal S1S2, RRR. No edema. GI: Abdomen soft, nondistended, nontender, bowel sounds present. EXTREMITIES: No clubbing or cyanosis. Moves all extremities equal x 4 ? Assessment and Plan: ? 1) Anticipated Acute post op respiratory insufficiency: Stable on room air, continue to monitor SpO2 keep >90%. Encourage Acapella and IS use hourly. Ambulate and increase activity as tolerated. Continue Albuterol QID discontinue Mucomyst, continue PRN Albuterol, Add Mucinex. 2) Post-OP CABG x4: Hemodynamically stable, continue daily weights, I/O's, and heart healthy diet, CTS following and managing, increase activity ambulation. 3) DM 2: per primary 4) LLL Atelectasis: continue IS and Acapella encourage hourly use OOB to chair and progressive mobility. 5) MMP Per Primary 6) Discharge Planning: From Pulmonary/CC standpoint stable will sign off call with questions or concerns. SIGNATURE: Gladys Bhakta APRN.LENS [employer]ER [employer] PATIENT NAME: Concha Woodward DATE: January 14, 2020 TIME: 10:17 AM PAGER/CONTACT #: [phone] Normal [facility] Basic Panelon 01-13-2020 Urea nitrogen [Mass/Vol] 49 mg/dL High 7-18 [facility] Comment on above: Performed By: #### G LMET #### [address] [address] Creatinine [Mass/Vol] 1.93 mg/dL High 0.51-0.95 [facility] Comment on above: Result Comment: Use of this assay is not recommended for patients undergoing treatment with phenindione, due to the potential for falsely depressed results. Performed By: #### G LMET #### [facility] [address] [place], [place] [address] Anion gap [Moles/Vol] 11 mmol/L Normal 8-16 [facility] Comment on above: Performed By: #### G LMET #### [facility] [address] [place], [place] [address] CO2 [Moles/Vol] 22 mmol/L Normal 21-32 [facility] Comment on above: Performed By: #### G LMET #### [facility] [address] [place], [place] [address] Glucose [Mass/Vol] 134 mg/dL High 70-99 [facility] Comment on above: Performed By: #### G LMET #### [facility] [address] [place], [place] [address] Calcium [Mass/Vol] 8.3 mg/dL Low 8.5-10.1 [facility] Comment on above: Performed By: #### G LMET #### [facility] [address] [place] [address] Chloride [Moles/Vol] 107 mmol/L Normal 98-107 [facility] Comment on above: Performed By: #### G LMET #### [facility] [address] [place] [address] Potassium [Moles/Vol] 4.3 mmol/L Normal 3.5-5.1 [facility] Comment on above: Performed By: #### G LMET #### [facility] [address] [place] [address] Sodium [Moles/Vol] 136 mmol/L Normal 136-145 [facility] Comment on above: Performed By: #### G LMET #### [facility] [address] [place] [address] CASE MANAGEMon 01-13-2020 CASE MANAGEM HNO ID: [id number] Author: Kaylee BlairRnJohn Mcnamara RN Service: ? Author Type: Registered Nurse Type: Care Mgt Progress Note Filed: 01/13/2020 10:01 AM Note Text: CARE MANAGEMENT PROGRESS NOTE SERVICE DATE: 01/13/2020 SERVICE TIME: 10:00 AM LOS: 10 days Needs Prior to Discharge: Discharge Transportation [facility] acute rehab has accepted. No precert needed. SIGNATURE: Kaylee Mcnamara RN PATIENT NAME: Concha Woodward DATE: January 13, 2020 TIME: 10:00 AM PAGER/CONTACT #: [phone] [facility] CONSULTon 01-13-2020 CONSULT HNO ID: [id number] Author: Cesar Burroughs Service: Nephrology Author Type: Physician Type: Consults Filed: 01/13/2020 3:03 PM Note Text: [facility] Nephrology Progress Note Subjective/ INTERVAL HISTORY: We are seeing the patient for issues with SHA and ?New onset CHF Cr is?up still Peaked ? Denies any SOB, up in the chair S/p CABG?on 01/08 All labs / data/ chart and interval events are noted BP has been stable No issues with urine output Now on floor Responding to current rx at this time No other new issues No change in the PFSH at this time ROS is (-) unless mentioned Objective/ 01/13/20 0741 01/13/20 0800 01/13/20 1035 01/13/20 1221 BP: 124/62 126/65 131/70 Pulse: 69 69 71 Resp: 17 16 18 Temp: 36.5 ?C (97.7 ?F) 36.4 ?C (97.5 ?F) 36.5 ?C (97.7 ?F) TempSrc: Oral Oral SpO2: 100% 97% 97% Weight: Height: 24HR INTAKE/OUTPUT: Intake/Output Summary (Last 24 hours) at 01/13/2020 1501 Last data filed at 01/13/2020 0900 Gross per 24 hour Intake 537.8 ml Output 1800 ml Net -1262.2 ml ? Constitutional:??extuba petar, in chair, awake, alert, NAD HEAD, EYES, ENT: ?No pallor. ?No cyanosis. ?No icterus. ?Mucous membranes of mouth ?were moist. NECK: ?Otherwise supple. ?Hard for me to see a jugular vein distention elevation. ?LUNGS: ?Clear to auscultation. ?No rales. CARDIOVASCULAR: ?S1, S2. ?No rubs or gallops.CT are noted ABDOMEN: ?Soft, obese, nontender. ?Bowel sounds are heard. EXTREMITIES: ?No peripheral edema. SKIN: ?Otherwise warm and moist. PSYCH: ?Normal affect. ?Does not appear to be anxious, depressed, or agitated. with rory noted Good urine Current Facility-Administered Medications Medication Dose Route Frequency - insulin lispro 6 Units pen (rapid acting) (HumaLOG KWIKPEN) 6 Units SUBCUTANEOUS w MEALS - dextrose 40 % 15 g 15 g ORAL PRN Or - glucagon 1 mg injection (GLUCAGEN) 1 mg INTRAMUSCULAR PRN Or - dextrose 50% in water 25 mL syringe 12.5 g INTRAVENOUS PRN - insulin lispro pen (rapid acting) (HumaLOG KWIKPEN) SUBCUTANEOUS w MEALS - albuterol 2.5 mg /3 mL (0.083 %) 2.5 mg (PROVENTIL) 2.5 mg INHALATION QID - acetylcysteine 200 mg/mL (20 %) 200 mg (MUCOMYST) 200 mg INHALATION BID - NaCl 0.9% 2-10 mL 2-10 mL INTRAVENOUS q 12 H - melatonin 3 mg tab(s) 3 mg ORAL HS PRN - traMADol 50-100 mg tab(s) (ULTRAM) 50-100 mg ORAL q 12 H PRN - amiodarone 400 mg tab(s) (PACERONE) 400 mg ORAL TID - aspirin 162 mg chewable tab(s) 162 mg ORAL DAILY - enoxaparin 30 mg injection (LOVENOX) 30 mg SUBCUTANEOUS q 24 HR - metoprolol tartrate (short acting) 25 mg tab(s) (LOPRESSOR) 25 mg ORAL q 8 H - insulin glargine 8 Units pen (long acting) (LANTUS SOLOSTAR, BASAGLAR KWIKPEN) 8 Units SUBCUTANEOUS DAILY (8 AM) - pantoprazole DR 40 mg tab(s) (PROTONIX) 40 mg ORAL DAILY (6 AM) - acetaminophen 1,000 mg tab(s) (TYLENOL) 1,000 mg ORAL/FEEDING TUBE q 6 H - albuterol 2.5 mg /3 mL (0.083 %) 2.5 mg (PROVENTIL) 2.5 mg INHALATION q 2 H PRN - atorvastatin 40 mg tab(s) (LIPITOR) 40 mg ORAL AT BEDTIME - ondansetron (PF) 4 mg injection (ZOFRAN) 4 mg INTRAVENOUS q 6 H PRN - lidocaine 4 % 1 Patch (SALONPAS) 1 Patch TRANSDERMAL DAILY And - lidocaine patch - REMOVE OTHER AT BEDTIME And - lidocaine - VERIFY PATCH OTHER q 8 H - bisacodyl 10 mg suppository (DULCOLAX) 10 mg RECTAL DAILY PRN - magnesium oxide 400 mg tab(s) (MAG-OX) 400 mg ORAL DAILY - polyethylene glycol 3350 17 g packet (MIRALAX, GLYCOLAX) 17 g ORAL DAILY Data/ CBC, Coags, BMP, Mg, Phos Recent Labs 01/13/20 0505 01/12/20 0625 01/11/20 0515 WBC 15.23* 17.62* 18.11* HB 10.8* 10.3* 10.7* HCT 33.4* 32.6* 33.9* PLT 188 124* 108* NA 136 136 138 K 4.3 4.7 4.8 CHLOR 107 106 111* CO2 22 23 20* BUN 49* 46* 39* CREAT 1.93* 1.96* 1.81* GLUC 134* 173* 69* CA 8.3* 8.2* 8.2* MG -- -- 2.3 Assessment/ 84 year old female who presents with ? 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 We will follow Avoid all renal toxins Dose meds for GFR < 30 Normal [facility] CONSULT PROGon 01-13-2020 CONSULT PROG HNO ID: [id number] Author: Ann Echeverria Service: Endocrinology Author Type: Physician Type: Consult Progress Note Filed: 01/13/2020 10:50 AM Note Text: ENDOCRINOLOGY CONSULT PROGRESS NOTE SERVICE DATE: 01/13/2020 SERVICE TIME: 10:48 AM Subjective INTERVAL HPI: followed for DM type 2 on insulin MDI; can not tolerate metformin due to diarrhea; has CAD;s/p CABG today 01/09/2020 She was admitted there with chest pain and was found to have coronary artery disease. Patient has history of angioplasty 30 years ago. ?H/o CAD and remote FL now admitted with NSTEMI who is found to have severe MV CAD and ischemic CM with EF 30%, no CHF, in a setting of DM, HTN, HLD, CKD, remote CVA. Regarding diabetes, patient has history of type 2 diabetes for about 5 years. At home, patient takes Basaglar 9 units every morning and she takes NovoLog 8 units for breakfast and dinner and 6 units for lunch. Her A1c was 7.6 on December 25, now her A1c is 8.4. s/p CABG was on IV insulin gtt per CABG protocol now off; off of pressors; better po intake; on prandial humalog 6 units qac tid plus correction and lantus 8 units daily DIET HEART HEALTHY Recent Labs 01/13/20 0717 01/13/20 0505 01/12/20 2036 01/12/20 1639 01/12/20 0625 01/11/20 0515 GLUC -- 134* -- -- -- 173* -- 69* GLUCOSEMETER 158* -- 181* 138* < > -- < > -- < > = values in this interval not displayed. Current Facility-Administered Medications Medication Dose Route Frequency - acetaminophen 1,000 mg tab(s) (TYLENOL) 1,000 mg ORAL/FEEDING TUBE q 6 H - albuterol 2.5 mg /3 mL (0.083 %) 2.5 mg (PROVENTIL) 2.5 mg INHALATION q 2 H PRN - atorvastatin 40 mg tab(s) (LIPITOR) 40 mg ORAL AT BEDTIME - ondansetron (PF) 4 mg injection (ZOFRAN) 4 mg INTRAVENOUS q 6 H PRN - lidocaine 4 % 1 Patch (SALONPAS) 1 Patch TRANSDERMAL DAILY And - lidocaine patch - REMOVE OTHER AT BEDTIME And - lidocaine - VERIFY PATCH OTHER q 8 H - bisacodyl 10 mg suppository (DULCOLAX) 10 mg RECTAL DAILY PRN - magnesium oxide 400 mg tab(s) (MAG-OX) 400 mg ORAL DAILY - polyethylene glycol 3350 17 g packet (MIRALAX, GLYCOLAX) 17 g ORAL DAILY - traMADol 50-100 mg tab(s) (ULTRAM) 50-100 mg ORAL q 6 H PRN - pantoprazole DR 40 mg tab(s) (PROTONIX) 40 mg ORAL DAILY (6 AM) - metoprolol tartrate (short acting) 25 mg tab(s) (LOPRESSOR) 25 mg ORAL q 8 H - insulin glargine 8 Units pen (long acting) (LANTUS SOLOSTAR, BASAGLAR KWIKPEN) 8 Units SUBCUTANEOUS DAILY (8 AM) - amiodarone 400 mg tab(s) (PACERONE) 400 mg ORAL TID - aspirin 162 mg chewable tab(s) 162 mg ORAL DAILY - enoxaparin 30 mg injection (LOVENOX) 30 mg SUBCUTANEOUS q 24 HR - insulin lispro 6 Units pen (rapid acting) (HumaLOG KWIKPEN) 6 Units SUBCUTANEOUS w MEALS - dextrose 40 % 15 g 15 g ORAL PRN Or - glucagon 1 mg injection (GLUCAGEN) 1 mg INTRAMUSCULAR PRN Or - dextrose 50% in water 25 mL syringe 12.5 g INTRAVENOUS PRN - insulin lispro pen (rapid acting) (HumaLOG KWIKPEN) SUBCUTANEOUS w MEALS - albuterol 2.5 mg /3 mL (0.083 %) 2.5 mg (PROVENTIL) 2.5 mg INHALATION QID - acetylcysteine 200 mg/mL (20 %) 200 mg (MUCOMYST) 200 mg INHALATION BID - senna-docusate 8.6-50 mg 2 tablet (SENNA-S) 2 tablet ORAL BID - NaCl 0.9% 2-10 mL 2-10 mL INTRAVENOUS q 12 H - melatonin 3 mg tab(s) 3 mg ORAL HS PRN - furosemide 40 mg tab(s) (LASIX) 40 mg ORAL ONCE Objective PHYSICAL EXAM:BP 124/62 Pulse 69 Temp (Src) 97.7 (Temporal) Resp 17 Ht 5' 3 (1.60m) Wt 183 lb 3.2 oz (83.1kg) SpO2 100% BMI 32.46 kg/(m2). O2 Therapy: Room Air NAD, sitting up in chir RRR abd soft No edema DATA: Diagnostic tests reviewed for today's visit: Most recent labs and imaging results. Assessment/Plan Diabetes mellitus type 2; HbA1c 8.4; on lantus 12 units daily and humalog 8 units qac tid plus correction; was iv insulin gtt per CABG protocol until now when was turned off; BS 68 mg/dl; poor po intake; off of pressors; On prandial humalog 8 units qac tid , decreased to 4 units qac tid and lantus 8 units daily; d/c iv insulin gtt on 01/10; 01/11 BS slightly elevated; S creat worse; cont lantus 8 units daily and decreased humalog to 6 units qac tid plus correction SHA/CKS stage III; S creat 1.9(1.9)1.8)(1.55)(1.26 )(1.44)(1.46)(1.8)(2.1) (baseline 1.3) ACS (acute coronary syndrome) (HCC) POA: Yes Assessment AND Plan: EF 30%; s/p CABG 01/09/2020 SIGNATURE: Ann Echeverria MD PATIENT NAME: Concha Woodward DATE: January 13, 2020 TIME: 10:50 AM PAGER: [phone] Normal [facility] Hemogramon 01-13-2020 Erythrocyte distribution width (RBC) [Ratio] 15.1 % High 11.7-14.4 [facility] Comment on above: Performed By: #### H A1C #### [facility] [address] [place] [address] Hematocrit (Bld) [Volume fraction] 33.4 % Low 34.1-44.9 [facility] Comment on above: Performed By: #### H A1C #### [facility] [address] [place] [address] Hemoglobin (Bld) [Mass/Vol] 10.8 g/dL Low 11.2-15.7 [facility] Comment on above: Performed By: #### H A1C #### [place] [address] MCH (RBC) [Entitic mass] 30.0 pg Normal 25.6-32.2 [facility] Comment on above: Performed By: #### H A1C #### [facility] [address] [place] [address] MCHC (RBC) [Mass/Vol] 32.3 % Normal 31.6-34.8 [facility] Comment on above: Performed By: #### H A1C #### [place] [address] MCV (RBC) [Entitic vol] 92.8 fL Normal 79.4-94.8 [facility] Comment on above: Performed By: #### H A1C #### [facility] [address] [place] [address] Platelet mean volume (Bld) [Entitic vol] 12.2 fL Normal 9.4-12.3 [facility] Comment on above: Performed By: #### H A1C #### [facility] [address] [place] [address] Platelets (Bld) [#/Vol] 188 thou/cmm Normal 182-369 [facility] Comment on above: Performed By: #### H A1C #### [facility] [address] [place], [place] [address] RBC (Bld) [#/Vol] 3.60 mil/cmm Low 3.93-5.22 [facility] Comment on above: Performed By: #### H A1C #### [facility] [address] [place], [place] [address] RDW SD 50.5 fl High 36.4-46.3 [facility] Comment on above: Performed By: #### H A1C #### [facility] [address] [place], [place] [address] WBC (Bld) [#/Vol] 15.23 thou/cmm High 3.98-10.04 [facility] Comment on above: Performed By: #### H A1C #### [facility] [address] [place], [place] [address] PROGRESSon 01-13-2020 PROGRESS HNO ID: [id number] Author: Yanet Rivera Service: Thoracic Surgery Author Type: Physician Type: Progress Notes Filed: 01/13/2020 3:04 PM Note Text: Patient seen this AM on 4200. She says she is doing better and was given her kleenex and incentive spirometer. Later d/w RN FACULTY. P-as ordered. Normal [facility] PROGRESS HNO ID: [id number] Author: Jack Ngo (Pharmacist) Service: Pharmacy Author Type: Pharmacist Type: Progress Notes Filed: 01/13/2020 11:30 AM Note Text: Pharmacy Consult Agreement: Renal Dose Adjustment Patient Name: Concha Woodward Service Date: 01/13/2020 Service Time: 11:29 AM The following changes have been made to the patient's medication therapy as part of the pharmacy consult agreement. Estimated CrCl: Estimated Creatinine Clearance: 23 mL/min (A) (based on SCr of 1.93 mg/dL (H)). Current Therapy: Tramadol 50-100 mg every 6 hours as needed New Therapy: Tramadol 50-100 mg every 12 hours as needed Thank you for allowing me to participate in the care for this patient. Signature: Jack Ngo, Pharmacist Pager/Extension: [phone] Normal [facility] PROGRESS HNO ID: [id number] Author: Vish Hardy (Pa) Service: Cardiovascular Surgery Author Type: Physician Security Representative Type: Progress Notes Filed: 01/13/2020 9:31 AM Note Text: CARDIOTHORACIC SURGERY POSTOP PROGRESS NOTE SERVICE DATE: 01/13/2020 SERVICE TIME: 8:35 AM Subjective S/P SURGERY: Procedure(s) (LRB): BYPASS GRAFT ARTERY CORONARY ON-PUMP FOUR CORONARY ARTERIAL GRAFTS GHOSH - LAD / /DCA, SVG - PDA / CX WITH ENDOVASCULAR VEIN HARVESTING (N/A) DATE OF SURGERY: 01/09/2020 POSTOP DAY #4 LOS: 10 INTERVAL EVENTS / PERTINENT ROS: Patient seen an d examined. No acute events overnight. No AF. + flatus, - BM. Walked with assist of one (half lap around unit). Weak. 25% breakfast eaten. Denies SOB, chest pain, N/V. Objective Admission Weight: 73.3 kg (161 lb 9.6 oz) BP 114/58 Pulse 64 Temp 36.5 ?C (97.7 ?F) Resp 16 Ht 160 cm (5' 3) Wt 83.1 kg (183 lb 3.2 oz) SpO2 96% BMI 32.45 kg/m? Body surface area is 1.92 meters squared. Min/Max/Average Temperature AND Blood Pressure: Temp (24hrs), Av.2 ?C (97.2 ?F), Min:36.1 ?C (97 ?F), Max:36.5 ?C (97.7 ?F) Systolic (24hrs), Av , Min:100 , Max:144 Diastolic (24hrs), Av, Min:56, Max:85 Intake/Output Summary (Last 24 hours) at 01/13/2020 0835 Last data filed at 01/13/2020 0500 Gross per 24 hour Intake 837.8 ml Output 1700 ml Net -862.2 ml TELEMETRY: normal sinus rhythm (72) PHYSICAL EXAM: General Appearance: In chair / pleseant. NAD. Thoracic vest on. Off drips. Skin: Midsternal incision dry AND intact. and SVG incisions dry AND intact. Subxiphoid dressing C/D/I Head/Eyes: NCAT. EOMI Neck: RIJ present. Supple. No JVD Lungs: Diminished with crackles left base-unchanged. No wheeze. Heart: regular rhythm/ rate. Wires present Peripheral Vascular/Arteries: dorsalis pedis 1+ and radial 2+ Abdomen: soft, non-tender. Slight distention. Bowel sounds hypoactive Neurologic/Psychiatric: alert/ follows commands. NFD Extremities: Trace LE edema. Moves all extremities. SCD/ PETAR on. SCD not connected. Lines, Drains, and Airways Line Peripheral 01/03/20 1849 Admission to Hospital Short Left Forearm 20 Gauge 9 days Peripheral 01/04/20 1618 Short Right Antecubital 20 Gauge 8 days Central Line Quadruple Lumen 01/09/20 0802 Pulmonary Artery Catheter Right Neck 3 days Airway Airway Endotracheal Tube -- days DATA: Diagnostic tests reviewed for today's visit: CXR: Diminished aeration left lung base consistent with atelectasis and probable left-sided pleural effusion. ?Slightly worse. Recent Labs 01/13/20 0505 01/12/20 0625 01/11/20 0515 RBC 3.60* 3.45* 3.58* WBC 15.23* 17.62* 18.11* HB 10.8* 10.3* 10.7* HCT 33.4* 32.6* 33.9* PLT 188 124* 108* NA 136 136 138 K 4.3 4.7 4.8 CHLOR 107 106 111* CO2 22 23 20* BUN 49* 46* 39* CREAT 1.93* 1.96* 1.81* GLUC 134* 173* 69* CA 8.3* 8.2* 8.2* MG -- -- 2.3 ANION 11 12 12 Assessment/Plan NSTEMI/ CAD -s/p CABG x 4 (ghosh-lad sequenced with diag; svg-om, rpl; evh); POD#4 -ASA to 162, continue atorvastatin 40, metoprolol 25 TID -Plavix possibly to start tomorrow after wires removal for ACS -Vest (DM, BMI > 30, CKD) -Remove central line -Bowel regimen increased; rec MOM tomorrow if no BM today -Pain control per ERAS -IS/ PT/ OT >> acute rehab suggested but seems to be motivated and improving ? Atrial fibrillation RVR -Currently NSR -Rhythm/rate control with amiodarone (400 TID) metoprolol (25 TID) -Defer OAC since in NSR; if recurrent then start Eliquis at 2.5 mg BID (age> 80/ Cr > 1.5) -CHADS2 score: 6 -[id number] VASc score: 9 ? Anticipated post-op respiratory insufficiency -2/2 atelectasis and effusion -On RA -Pulm toilet increased by PCCM with flutter valve and mucomyst -Continue to use IS/ ambulate -2 view in future ? Leukocytosis -15 and trending down -Afebrile -Monitor ? Thrombocytopenia -188; resolved ? Acute blood loss anemia -2/2 OR -Hgb trending up at 10.8 -No indication for transfusion ? A/CKD -Cr stable at 1.93; peaked at 1.96 -Continue to use lasix PRN with support by nephrology ? DM2 -Endo following -Appreciate recs ? HFrEF -2/2 ICM -EF 30% -Metoprolol started -Defer ACEi until Cr normal ? HTN -Defer ACEi (see SHA) ? HLD -Atorvastatin ? DVT ppx -Lovenox (30mg for CrCl < 30) -Cont SCD to LLE (pain with RLE) ? GI ppx -Protonix? ? Remote Hx of CVA Transfer to 4200 Plan of care completed with RN. Patient questions answered. SIGNATURE: Vish Hardy PA-C PATIENT NAME: Concha Woodward DATE: January 13, 2020 TIME: 8:35 AM PAGER/CONTACT #: [phone] Normal [facility] PROGRESS HNO ID: [id number] Author: Cesar Marinelli Service: Pulmonary Disease Author Type: Physician Type: Progress Notes Filed: 01/13/2020 8:35 AM Note Text: MICU - PROGRESS NOTE SERVICE DATE: January 13, 2020 Admission Date: 01/03/2020 AGE: [age] year old LOS: 10 days Subjective Patient awake and alert. Feeling better. Creatinine stable Was diuresed yesterday and today. Currently on room air. LLL atelectasis. Questionable small effusion persists. Some RICKIE volume loss noted Objective PROBLEMS: ACTIVE PROBLEM LIST Hypertension Goal Bp (Blood Pressure) < 150/90 Pure Hypercholesterolemia Osteopenia Benign Neoplasm of Cerebral Meninges (Hcc) History of Gout Type 2 Diabetes Mellitus With Stage 3 Chronic Kidney Disease, With Long-Term Current Use of Insulin (Hcc) History of Cva (Cerebrovascular Accident) Hyperuricemia Diarrhea, Unspecified Acs (Acute Coronary Syndrome) ([facility]) S/P Cabg X 4 PAST MEDICAL HISTORY Diagnosis Date - Abdominal [...] SINUS - Pure hypercholesterolemia - Stroke (cerebrum) ([facility], [facility]) 2013 - Type II or unspecified type diabetes mellitus without mention of complication, uncontrolled - Unspecified cardiovascular disease - Unspecified essential hypertension - Urgency of urination 2008 PAST SURGICAL HISTORY Procedure Laterality Date - ANGIOPLASTY 1988 - COLONOSCOP W/ OR W/O [facility] SPEC 08/29/07 - LAPAROSCOPIC CHOLEYCYSTECTOMY Cholecystectomy, lap - LEFT HEART CATH,CUTDOWN 1991 - PAST SURGICAL HISTORY OF Tubal Social History Tobacco Use - Smoking status: Never Smoker - Smokeless tobacco: Never Used Substance Use Topics - Alcohol use: No - Drug use: No VITAL SIGNS (last 24hrs min/max): Temp Av.3 ?C (97.3 ?F) Min: 36 ?C (96.8 ?F) Max: 36.5 ?C (97.7 ?F) Pulse Av.8 Min: 65 Max: 104 Arterial BP 1 Min: 112/56 Max: 153/74 Cuff BP Min: 109/70 Max: 142/74 Pain Level: 0 Vital signs reviewed. BP 114/58 Pulse 64 Temp (Src) 97.7 (Temporal) Resp 16 Ht 5' 3 (1.60m) Wt 183 lb 3.2 oz (83.1kg) SpO2 96% BMI 32.46 kg/(m2). O2 Therapy: Room Air Temp (24hrs), Av.2 ?C (97.2 ?F), Min:36.1 ?C (97 ?F), Max:36.5 ?C (97.7 ?F) NET FLUID BALANCE Intake/Output Summary (Last 24 hours) at 01/13/2020 0813 Last data filed at 01/13/2020 0500 Gross per 24 hour Intake 837.8 ml Output 1700 ml Net -862.2 ml MEDICATIONS Current Facility-Administered Medications Medication Dose Route Frequency - insulin lispro 6 Units pen (rapid acting) (HumaLOG KWIKPEN) 6 Units SUBCUTANEOUS w MEALS - dextrose 40 % 15 g 15 g ORAL PRN Or - glucagon 1 mg injection (GLUCAGEN) 1 mg INTRAMUSCULAR PRN Or - dextrose 50% in water 25 mL syringe 12.5 g INTRAVENOUS PRN - insulin lispro pen (rapid acting) (HumaLOG KWIKPEN) SUBCUTANEOUS w MEALS - amiodarone 400 mg tab(s) (PACERONE) 400 mg ORAL TID - aspirin 162 mg chewable tab(s) 162 mg ORAL DAILY - enoxaparin 30 mg injection (LOVENOX) 30 mg SUBCUTANEOUS q 24 HR - metoprolol tartrate (short acting) 25 mg tab(s) (LOPRESSOR) 25 mg ORAL q 8 H - insulin glargine 8 Units pen (long acting) (LANTUS SOLOSTAR, BASAGLAR KWIKPEN) 8 Units SUBCUTANEOUS DAILY (8 AM) - pantoprazole DR 40 mg tab(s) (PROTONIX) 40 mg ORAL DAILY (6 AM) - potassium chloride iv piggyback 20 mEq/100 mL 20 mEq INTRAVENOUS PRN - magnesium sulfate in water 2 g in sterile water 50 ml 2 g INTRAVENOUS PRN(NO DISPENSE) - acetaminophen 1,000 mg tab(s) (TYLENOL) 1,000 mg ORAL/FEEDING TUBE q 6 H - albuterol 2.5 mg /3 mL (0.083 %) 2.5 mg (PROVENTIL) 2.5 mg INHALATION q 2 H PRN - atorvastatin 40 mg tab(s) (LIPITOR) 40 mg ORAL AT BEDTIME - ondansetron (PF) 4 mg injection (ZOFRAN) 4 mg INTRAVENOUS q 6 H PRN - calcium chloride 1 g in D5W 100 mL 1 g INTRAVENOUS PRN(NO DISPENSE) - lidocaine 4 % 1 Patch (SALONPAS) 1 Patch TRANSDERMAL DAILY And - lidocaine patch - REMOVE OTHER AT BEDTIME And - lidocaine - VERIFY PATCH OTHER q 8 H - bisacodyl 10 mg suppository (DULCOLAX) 10 mg RECTAL DAILY PRN - magnesium oxide 400 mg tab(s) (MAG-OX) 400 mg ORAL DAILY - polyethylene glycol 3350 17 g packet (MIRALAX, GLYCOLAX) 17 g ORAL DAILY - senna-docusate 8.6-50 mg 1 tablet (SENNA-S) 1 tablet ORAL BID - traMADol 50-100 mg tab(s) (ULTRAM) 50-100 mg ORAL q 6 H PRN Lines, Drains, and Airways Line Peripheral 01/03/20 1849 Admission to Hospital Short Left Forearm 20 Gauge 9 days Peripheral 01/04/20 1618 Short Right Antecubital 20 Gauge 8 days Central Line Quadruple Lumen 01/09/20 0802 Pulmonary Artery Catheter Right Neck 3 days Airway Airway Endotracheal Tube -- days PHYSICAL EXAM PERFORMED: General: no acute distress. Throat with normal mucosa. Class III Mallampati Cardiovascular: Regular rhythm Respiratory: left pleural rub Abdomen: Soft, Nontender and Positive bowel sounds Extremities: Edema- No Neurologic: Awake, oriented, Alert, Follows commands and Moving all extremities Respiratory/Nursing Documentation: O2 Therapy: Room Air (01/13/20 0741) Invasive Ventilator Mode: Synchronized Intermittent Mandatory Ventilation (01/09/20 141) Set Ventilator Respiratory Rate (BPM): 12 (01/09/20 1410) Total Respiratory Rate (BPM): 12 (01/09/20 1410) Tidal Volume Set (mL): 500 (01/09/20 1410) Exhaled Tidal Volume (mL): 487 (01/09/20 1410) Minute Volume (L): 8.5 (01/09/20 1410) Peak Inspiratory Pressure (cm H2O): 23 (01/09/20 1410) PEEP/CPAP (cm H2O): 5 (01/09/20 141) HEMODYNAMIC DATA: Reviewed NUTRITION: Enteral Feeds: Yes Heart healthy DATA: Diagnostic tests reviewed for today's visit, films/specimens were personally reviewed by me: Most recent labs and imaging results. LABS: Recent Labs 01/13/20 0505 01/11/20 0515 WBC 15.23* < > 18.11* RBC 3.60* < > 3.58* HB 10.8* < > 10.7* HCT 33.4* < > 33.9* MCV 92.8 < > 94.7 PLT 188 < > 108* GLUC 134* < > 69* BUN 49* < > 39* CREAT 1.93* < > 1.81* NA 136 < > 138 K 4.3 < > 4.8 CHLOR 107 < > 111* CO2 22 < > 20* CA 8.3* < > 8.2* MG -- -- 2.3 < > = values in this interval not displayed. Echo 01/03/20 LVEF 30% ABG: Invalid input(s): [id number] Assessment/Plan IMPRESSION: Critical Care Documentation: The patient has the following organ/system impairment(s): anticipated post op respiratory insufficiency 1. Anticipated acute post op respiratory insufficiency 2. Post op CABG x4 3. Ischemic cardiomyopathy 5. Acute on chronic renal failure 6. DM type 2 7. Obesity 8. LLL atelectasis 9. Left upper lobe volume loss on today's x-ray MMP CRITICAL CARE PLAN: Consider gentle hydration- Nephro following Continue incentive spirometry On Amiodarone - converted to PO Consider sleep study as outpatient Add mucomyst, albuterol neb treatments, acapella This patient has a high probability of sudden, clinically significant deterioration, which requires the highest level of physician preparedness to intervene urgently. I managed/supervised life or organ supporting interventions that required frequent physician assessment. I devoted my full attention to the direct care of this patient for the amount of time indicated below. Time I spent with family or surrogate(s) is included only if the patient was incapable of providing the necessary information or participating in medical decision making. Time devoted to teaching is not included. Discussed with staff/patient/family Time spent providing critical care services: 30 minutes excluding procedures. SIGNATURE: Cesar Marinelli DO PATIENT NAME: Concha Woodward DATE: January 13, 2020 TIME: 8:13 AM Normal [facility] THERAPY NTon 01-13-2020 THERAPY NT HNO ID: [id number] Author: Cely Tellezr/Flor Ritter Service: Occupational Therapy Author Type: Occupational Therapist Type: Therapy (PT/OT/Speech/Resp) Filed: 01/13/2020 11:34 AM Note Text: Occupational Therapy Evaluation SERVICE DATE: 01/13/2020 SERVICE TIME: 1029 to 1052 ROOM: [id number] Recommended Discharge Disposition: Acute Rehab Recommended Discharge Disposition Comments: Pt will benefit from acute rehab at discharge to maximize functional mobility, activity tolerance, and independence during performance of ADLs and IADLs Justification For Post Acute Needs: Anticipate patient will tolerate 3 hours of daily therapy at the time of admission to post-acute setting;Cognition intact;Good premorbid functional status;Living the community premorbidly;Motivated;W illing to participate OT Recommendations to Nursing: OOB for meals;To Bathroom for ADL?s /and or Toileting;With assist of 1 person Equipment: Wheeled Walker OT 6 Clicks Score: 17 Precautions/Activity Restrictions: Fall Risk ASSESSMENT: Patient presents with s/p CABG x 4. Requires skilled OT for addressing deficits related to self care, activity tolerance and energy conservation, functional mobility, sternal precautions and safety, which negatively impact patient's baseline functioning for completing ADLs and IADLs. Patient Disposition at Start of Session: OOB in Chair;Call [facility] in Reach Patient Disposition at End of Session: OOB in Chair;Call [facility] in Reach Tolerated Full Session Occupational Therapy Problem List: Safety Deficits;Impaired Self Care;Decreased Activity Tolerance;Functional Mobility Impairment Patient /Caregiver Goals: Go To Rehab Goals for Plan of Care: Grooming with: Supervision Upper Body Bathing with: Stand By Assistance Upper Body Dressing with: Stand By Assistance Lower Body Bathing with: Stand By Assistance Lower Body Dressing with: Stand By Assistance Toilet Transfer with: Contact Guard Assistance Car Transfer with: Stand By Assistance Tolerate (minutes of functional activity): 20 Functional Activity with: Stand By Assistance Additional Goal 1: Pt will verbalize don/doffing of sternal vest with min assistance for placement Additional Goal 2: Pt will demo safe use of walker during transfers and functional activities 85% of time Demonstrate Competence With Education with: Independent(energy conservation and work simplification techniques ) Rehab Potential: Good PLAN: Treatment Frequency (times per week): 3(1-3 times per week) Current admission Treatment Interventions: Education;Energy Conservation Training;Self Care / Home Management;Functional Mobility Training;Balance Training Plan of Care developed with: Patient TREATMENT INTERVENTIONS: Therapy Diagnosis: Reduced mobility-other;Decrease d activities of daily living (ADL);General symptoms and signs-other Interventions Provided: Evaluation;Self [facility] ([id number]) $ Evaluation-Moderate (67062) Billed Units: 1 unit OT Evaluation Moderate Complexity: Occupational Profile - Extended review of patient's medical record completed including patient's physical, cognitive, and psycho-social history (please see current hospital course of evaluation). Occupational Performance - Pt presents with deficits in feeding, grooming, UE bathing/dressing, LE bathing/dressing, functional transfers, functional mobility, decreased safety awareness, decreased insight into deficits Complexity in Clinical Decision Making - The extent of clinical reasoning was moderate, several treatment options present for the patient, need for modification during the evaluation was minimal/moderate, comorbidities affecting occupational performance: unsteadiness on feet, shortness of breath, fatigue, safety awareness, history of CVA, s/p CABG Self [facility] ([id number]) Treatment Minutes: 10 1 unit Skilled Intervention(s): Instructed in post-op instructions during ADLs and sternal precautions. Allowed time for patient to demonstrate understanding. Provided handout for patient re: self care following heart surgery; discussed self care and home recommendations with patient. Allowed time for patient to demonstrate understanding and answered questions on self care activities and home environment. Instructed in energy conservation during functional mobility to bathroom ADLs. Supervised patient demonstrating deep breathing exercises. Provided instruction, cuing and facilitation for toileting. Provided step by step instruction on use of wheeled walker, proper posture during functional mobility and adherence to precautions. Provided step by step cues on turning walker for stand pivot transfer until standing in front of toilet seat. Pt attempted to use grab bars for transfer; cued patient to use pillow for sitting in commode instead. Assisted patient in hand hygiene activity and supervised for maximized safety. Assisted patient return to bedroom chair, providing step by step on turning of walker and use of pillow for sitting. Education in don/doffing of sternal vest. Allowed time for patient to demonstrate understanding. Provided repositioning of chair for comfort and placed call light within reach. Ensured all concerns were addressed before leaving room. Total Timed Code Treatment Minutes: 10 Total Treatment Time (minutes): 23 SUBJECTIVE: Current Hospital Course: Chart reviewed; Patient presented to [facility] for CABG x 4 on 01/09/2020 due to acute coronary syndrome. PAST MEDICAL HISTORY Diagnosis Date - Abdominal [...] diabetes mellitus without mention of complication, uncontrolled - Unspecified cardiovascular disease - Unspecified essential hypertension - Urgency of urination 2008 PAST SURGICAL HISTORY Procedure Laterality Date - ANGIOPLASTY 1988 - COLONOSCOP W/ OR W/O [facility] SPEC 08/29/07 - LAPAROSCOPIC CHOLEYCYSTECTOMY Cholecystectomy, lap - LEFT HEART CATH,CUTDOWN 1991 - PAST SURGICAL HISTORY OF Tubal Reason for Occupational Therapy Consult: s/p CABG x 4 Relevant Past Medical History: stroke, DM2, CAD, HTN, HLD Patient Report: Patient IDx2. Pt reported no pain and was agreeable to therapy session. Home Environment Patient Lives With: Spouse Assistance Available: 24 Hour Entry To Home: Stairs;With Rail Number Of Stairs Into Home: 2 Number Of Stairs To Bed/Bath: Full flight Stairs to Bed/Bath with: Bilateral Rail Tub/Shower Type: Walk-in shower Laundry: Basement Equipment Owned: Shower Chair Prior Functional Level: Within Functional Limits Prior Functional Level Comments: Pt reports independent with ADLs and IADLs prior to admission. No device, drives, volunteers OBJECTIVE: Cognition/Communication Deficits Responsiveness: Alert;Awake Follows Commands: 3-step Commands Executive Function Deficits: Safety Awareness Safety Awareness Deficit: Minimal impairment(Cues for precautions and use of wheeled walker) CURRENT FUNCTIONAL STATUS: Current Activities of Daily Living Assist Level Feeding Set Up Grooming Contact Guard Assistance(sink level) Bathing Upper Body Minimal Assistance Bathing Lower Body Minimal Assistance Dressing Upper Body Minimal Assistance Dressing Lower Body Minimal Assistance Toileting Moderate Assistance Functional Mobility Assist Level Rolling Supine to Sit Sit to Supine Scooting Sit to Stand Contact Guard Assistance Stand to Sit Contact Guard Assistance Bed to Chair Toilet/Commode Moderate Assistance Functional Mobility Moderate Assistance Wheeled Walker Functional Mobility Comments: Pt able to complete mobility to bathroom, assist needed for use of walker Balance: Dynamic Standing Dynamic Standing Balance: Fair Patient accepts minimal challenge, able to maintain balance while turning head/trunk Activity Tolerance: Standing Activity Standing Activity: Mobility to/from bathroom for ADLs Standing Activity Tolerance (in minutes): 5 Range of Motion: WFL Except(sternal precautions) Strength: WFL Except(sternal precautions) Please see discipline specific clinical documentation flowsheet for complete details for this therapy evaluation/treatment. SIGNATURE: Kesha Browlnee/MARCK PATIENT NAME: Concha Woodward DATE: January 13, 2020 TIME: 11:08 AM I reviewed and agree with the documentation corresponding to this therapy visit. SIGNATURE: MATT Whitmore/Nohemi DATE: January 13, 2020 TIME: 11:34 AM Evaluation and/or treatment directly supervised by licensed Occupational Therapist. Normal [facility] XR CHEST 1V FRONTALon 2019 XR CHEST 1V FRONTAL * * *Final Report* * * DATE OF EXAM: Jan 13 2020 6:01AM AKX [id number] - XR CHEST 1V FRONTAL / PROCEDURE REASON: Post-operative / post-procedure assessment, asymptomatic * * * * Physician Interpretation * * * * EXAMINATION: CHEST RADIOGRAPH (SINGLE VIEW AP OR PA) CLINICAL HISTORY: Post-operative / post-procedure assessment, asymptomatic MQ: [id number] Comparison: 01/12/2020 RESULT: Lines, tubes, and devices: Right internal jugular venous sheath with tip in the mid to distal superior vena cava. Overlying palliative medicine physician leads. Lungs and pleura: Diminished aeration left lung base most likely representing combination of atelectasis as well as left-sided pleural effusion. Slightly worse. Probable atelectasis medial right lung base. No pneumothorax. Cardiomediastinal silhouette: Heart size normal. Other: Intact median sternotomy wires. IMPRESSION: Diminished aeration left lung base consistent with atelectasis and probable left-sided pleural effusion. Slightly worse. Web Developer: KURT Transcribe Date/Time: Jan 13 2020 6:51A Dictated by : MICKY PA MD This examination was interpreted and the report reviewed and electronically signed by: MICKY PA MD on Jan 13 2020 6:52AM EST Normal [facility] Basic Panelon 01-12-2020 Creatinine [Mass/Vol] 1.96 mg/dL High 0.51-0.95 [facility] Comment on above: Result Comment: Use of this assay is not recommended for patients undergoing treatment with phenindione, due to the potential for falsely depressed results. Performed By: #### H A1C #### [facility] [address] [place], [place] [address] Anion gap [Moles/Vol] 12 mmol/L Normal 8-16 [facility] Comment on above: Performed By: #### H A1C #### [facility] [address] [place], [place] [address] CO2 [Moles/Vol] 23 mmol/L Normal 21-32 [facility] Comment on above: Performed By: #### H A1C #### [facility] [address] [place], [place] [address] Glucose [Mass/Vol] 173 mg/dL High 70-99 [facility] Comment on above: Performed By: #### H A1C #### [facility] [address] [place], [place] [address] Urea nitrogen [Mass/Vol] 46 mg/dL High 7-18 [facility] Comment on above: Performed By: #### H A1C #### [facility] [address] [place], [place] [address] Calcium [Mass/Vol] 8.2 mg/dL Low 8.5-10.1 [facility] Comment on above: Performed By: #### H A1C #### [facility] [address] [place], [place] [address] Chloride [Moles/Vol] 106 mmol/L Normal 98-107 [facility] Comment on above: Performed By: #### H A1C #### [facility] [address] [place], [place] [address] Potassium [Moles/Vol] 4.7 mmol/L Normal 3.5-5.1 [facility] Comment on above: Performed By: #### H A1C #### [facility] [address] [place], [place] [address] Sodium [Moles/Vol] 136 mmol/L Normal 136-145 [facility] Comment on above: Performed By: #### H A1C #### [facility] [address] [place] [address] CASE MGT INIT LIGIAon 2019 CASE MGT INIT LIGIA HNO ID: [id number] Author: Poly Strickland Service: Care Management Author Type: ? Type: Care Mgt Initial Assessment Filed: 01/12/2020 10:06 AM Note Text: CARE MANAGEMENT PROGRESS NOTE SERVICE DATE: 01/12/2020 SERVICE TIME: 929 LOS: 9 days IMM Follow Up Copy Given: Yes Copy given to:: Patient Method: In Person SIGNATURE: Poly Strickland PATIENT NAME: Concha Woodward DATE: January 12, 2020 TIME: 10:06 AM PAGER/CONTACT #: [phone] Normal [facility] CONSULT PROGon 01-12-2020 CONSULT PROG HNO ID: [id number] Author: Ann Echeverria Service: Endocrinology Author Type: Physician Type: Consult Progress Note Filed: 01/13/2020 12:08 AM Note Text: ENDOCRINOLOGY CONSULT PROGRESS NOTE SERVICE DATE: 01/12/2020 SERVICE TIME: 12:10 PM Subjective INTERVAL HPI: followed for DM type 2 on insulin MDI; can not tolerate metformin due to diarrhea; has CAD;s/p CABG today 01/09/2020 She was admitted there with chest pain and was found to have coronary artery disease. Patient has history of angioplasty 30 years ago. ?H/o CAD and remote FL now admitted with NSTEMI who is found to have severe MV CAD and ischemic CM with EF 30%, no CHF, in a setting of DM, HTN, HLD, CKD, remote CVA. Regarding diabetes, patient has history of type 2 diabetes for about 5 years. At home, patient takes Basaglar 9 units every morning and she takes NovoLog 8 units for breakfast and dinner and 6 units for lunch. Her A1c was 7.6 on December 25, now her A1c is 8.4. s/p CABG on IV insulin gtt per CABG protocol now off; off of pressors; poor po intake; on prandial humalog 8 units qac tid DIET HEART HEALTHY Recent Labs 01/12/206 01/12/20 1639 01/12/20 1159 01/12/20 0625 01/11/20 0515 01/10/20 0410 GLUC -- -- -- -- 173* -- 69* -- 122* GLUCOSEMETER 181* 138* 196* < > -- < > -- < > -- < > = values in this interval not displayed. Current Facility-Administered Medications Medication Dose Route Frequency - dextrose 50% in water 25 mL syringe 12.5 g INTRAVENOUS PRN - potassium chloride iv piggyback 20 mEq/100 mL 20 mEq INTRAVENOUS PRN - magnesium sulfate in water 2 g in sterile water 50 ml 2 g INTRAVENOUS PRN(NO DISPENSE) - acetaminophen 1,000 mg tab(s) (TYLENOL) 1,000 mg ORAL/FEEDING TUBE q 6 H - albuterol 2.5 mg /3 mL (0.083 %) 2.5 mg (PROVENTIL) 2.5 mg INHALATION q 2 H PRN - atorvastatin 40 mg tab(s) (LIPITOR) 40 mg ORAL AT BEDTIME - ondansetron (PF) 4 mg injection (ZOFRAN) 4 mg INTRAVENOUS q 6 H PRN - calcium chloride 1 g in D5W 100 mL 1 g INTRAVENOUS PRN(NO DISPENSE) - lidocaine 4 % 1 Patch (SALONPAS) 1 Patch TRANSDERMAL DAILY And - lidocaine patch - REMOVE OTHER AT BEDTIME And - lidocaine - VERIFY PATCH OTHER q 8 H - bisacodyl 10 mg suppository (DULCOLAX) 10 mg RECTAL DAILY PRN - magnesium oxide 400 mg tab(s) (MAG-OX) 400 mg ORAL DAILY - polyethylene glycol 3350 17 g packet (MIRALAX, GLYCOLAX) 17 g ORAL DAILY - senna-docusate 8.6-50 mg 1 tablet (SENNA-S) 1 tablet ORAL BID - traMADol 50-100 mg tab(s) (ULTRAM) 50-100 mg ORAL q 6 H PRN - pantoprazole DR 40 mg tab(s) (PROTONIX) 40 mg ORAL DAILY (6 AM) - metoprolol tartrate (short acting) 25 mg tab(s) (LOPRESSOR) 25 mg ORAL q 8 H - insulin lispro 4 Units pen (rapid acting) (HumaLOG KWIKPEN) 4 Units SUBCUTANEOUS w MEALS - insulin glargine 8 Units pen (long acting) (LANTUS SOLOSTAR, BASAGLAR KWIKPEN) 8 Units SUBCUTANEOUS DAILY (8 AM) - amiodarone 400 mg tab(s) (PACERONE) 400 mg ORAL TID - aspirin 162 mg chewable tab(s) 162 mg ORAL DAILY - enoxaparin 30 mg injection (LOVENOX) 30 mg SUBCUTANEOUS q 24 HR Objective PHYSICAL EXAM:BP 121/71 Pulse 66 Temp (Src) 97 (Temporal) Resp 21 Ht 5' 3 (1.60m) Wt 182 lb 1.6 oz (82.6kg) SpO2 97% BMI 32.27 kg/(m2). O2 Therapy: Room Air NAD, extubated RRR +chest tubes abd soft No edema DATA: Diagnostic tests reviewed for today's visit: Most recent labs and imaging results. Assessment/Plan Diabetes mellitus type 2; HbA1c 8.4; on lantus 12 units daily and humalog 8 units qac tid plus correction; was iv insulin gtt per CABG protocol until now when was turned off; BS 68 mg/dl; poor po intake; off of pressors; On prandial humalog 8 units qac tid , decreased to 4 units qac tid and lantus 8 units daily; d/c iv insulin gtt on 01/10; Today BS slightly elevated; S creat worse; cont lantus 8 units daily and increase humalog to 6 units qac tid plus correction SHA/CKS stage III; S creat 1.9(1.8)(1.55)(1.26)(1. 44)(1.46)(1.8)(2.1) (baseline 1.3) ACS (acute coronary syndrome) (HCC) POA: Yes Assessment AND Plan: EF 30%; s/p CABG 01/09/2020 SIGNATURE: Ann Echeverria MD PATIENT NAME: Concha Woodward DATE: January 12, 2020 TIME: 12:15 PM PAGER: [phone] Normal [facility] Hemogramon 01-12-2020 Erythrocyte distribution width (RBC) [Ratio] 15.6 % High 11.7-14.4 [facility] Comment on above: Performed By: #### H A1C #### [address] [address] Hematocrit (Bld) [Volume fraction] 32.6 % Low 34.1-44.9 [facility] Comment on above: Performed By: #### H A1C #### [facility] [address] [place] [address] Hemoglobin (Bld) [Mass/Vol] 10.3 g/dL Low 11.2-15.7 [facility] Comment on above: Performed By: #### H A1C #### [facility] [address] [place] [address] MCH (RBC) [Entitic mass] 29.9 pg Normal 25.6-32.2 [facility] Comment on above: Performed By: #### H A1C #### [facility] [address] [place] [address] MCHC (RBC) [Mass/Vol] 31.6 % Normal 31.6-34.8 [facility] Comment on above: Performed By: #### H A1C #### [facility] [address] [place] [address] MCV (RBC) [Entitic vol] 94.5 fL Normal 79.4-94.8 [facility] Comment on above: Performed By: #### H A1C #### [facility] [address] [place] [address] Platelet mean volume (Bld) [Entitic vol] 12.6 fL High 9.4-12.3 [facility] Comment on above: Performed By: #### H A1C #### [facility] [address] [place] [address] Platelets (Bld) [#/Vol] 124 thou/cmm Low 182-369 [facility] Comment on above: Performed By: #### H A1C #### [facility] [address] [place] [address] RBC (Bld) [#/Vol] 3.45 mil/cmm Low 3.93-5.22 [facility] Comment on above: Performed By: #### H A1C #### [facility] [address] [place] [address] RDW SD 52.6 fl High 36.4-46.3 [facility] Comment on above: Performed By: #### H A1C #### [facility] [address] [place], [place] [address] WBC (Bld) [#/Vol] 17.62 thou/cmm High 3.98-10.[address] [facility] Comment on above: Performed By: #### H A1C #### [facility] [address] [place], [place] [address] NUTRITIONon 01-12-2020 NUTRITION HNO ID: [id number] Author: Franci Gramajo RD Service: Nutrition Therapy Author Type: Registered Dietitian Type: Nutrition Filed: 01/12/2020 2:26 PM Note Text: NUTRITION THERAPY PROGRESS NOTE SERVICE DATE: 01/12/2020 SERVICE TIME: 14:20 Nutrition Assessment: Recommended Malnutrition Diagnosis: No Malnutrition Identified (01/07/20 1300 : Kinjal (Fercho) Alyssaocca) Estimated kilocalorie needs: [id number] Calorie Calculation Method: 25-30 kcals/kg Estimated protein needs (grams): 52-78 Grams protein determined by: 1.0-1.5 g/kg Care Plan: Continue current diet Supplements: Boost Glucose Control;Impact AR Monitor and Evaluation: Meet greater than 75% of estimated needs;Monitor labs, I/Os, vital signs, weight;Monitor fluid/electrolyte balance;Monitor bowel function Discharge Recommendations: Diet;Oral Supplements Diet: Heart healthy, CHO controlled Oral Supplements: Impact AR x 5 days post-op, adjust supplement to supplement of choice after if appetite is poor Interval History: Endocrine following r/t DM. Cardiovascular follows post-CABG. Anthropometrics: Height: 160 cm (5' 3) Weight: 82.6 kg (182 lb 1.6 oz) Dosing Weight: 52 kg (114 lb 10.2 oz) Usual Weight: 75 kg (165 lb 5.5 oz) Body mass index is 32.26 kg/m?. Overweight Weight change percentage over time: Insignficant Intake History: Current Intake: Less than 75% estimated energy needs over: 3 days post-CABG. Patient reports poor appetite post-surgery. Impat was discontinued for surgery, has not been restarted. Will order BID and add a Boost Glucose additionally due to poor intake. She did not like the Impact, but reports she was doing her best to drink them. Encouraged intake. Current Diet: DIET HEART HEALTHY SIGNATURE: Franci Gramajo RD PATIENT NAME: Concha Woodward DATE: January 12, 2020 TIME: 1:38 PM PAGER: [phone] Normal [facility] PROGRESSon 01-12-2020 PROGRESS HNO ID: [id number] Author: Cesar Marinelli Service: Pulmonary Disease Author Type: Physician Type: Progress Notes Filed: 01/12/2020 4:03 PM Note Text: MICU - PROGRESS NOTE SERVICE DATE: January 12, 2020 Admission Date: 01/03/2020 AGE: [age] year old LOS: 9 days Subjective Patient awake and alert. Feeling better. Creatinine increased to 1.96 today Was diuresed yesterday and today. Currently on room air. LLL atelectasis. Questionable small effusion persists. 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) History of Gout Type 2 Diabetes Mellitus With Stage 3 Chronic Kidney Disease, With Long-Term Current Use of Insulin ([facility]) History of Cva (Cerebrovascular Accident) Hyperuricemia Diarrhea, Unspecified Acs (Acute Coronary Syndrome) ([facility]) S/P Cabg X 4 PAST MEDICAL HISTORY Diagnosis Date - Abdominal [...] SINUS - Pure hypercholesterolemia - Stroke (cerebrum) ([facility]) 2013 - Type II or unspecified type diabetes mellitus without mention of complication, uncontrolled - Unspecified cardiovascular disease - Unspecified essential hypertension - Urgency of urination 2008 PAST SURGICAL HISTORY Procedure Laterality Date - ANGIOPLASTY 1988 - COLONOSCOP W/ OR W/O BRSH SPEC 08/29/07 - LAPAROSCOPIC CHOLEYCYSTECTOMY Cholecystectomy, lap - LEFT HEART CATH,CUTDOWN 1991 - PAST SURGICAL HISTORY OF Tubal Social History Tobacco Use - Smoking status: Never Smoker - Smokeless tobacco: Never Used Substance Use Topics - Alcohol use: No - Drug use: No VITAL SIGNS (last 24hrs min/max): Temp Av.3 ?C (97.3 ?F) Min: 36 ?C (96.8 ?F) Max: 36.5 ?C (97.7 ?F) Pulse Av.8 Min: 65 Max: 104 Arterial BP 1 Min: 112/56 Max: 153/74 Cuff BP Min: 109/70 Max: 142/74 Pain Level: 0 Vital signs reviewed. BP 134/73 Pulse 72 Temp (Src) 96.8 (Temporal) Resp 18 Ht 5' 3 (1.60m) Wt 182 lb 1.6 oz (82.6kg) SpO2 96% BMI 32.27 kg/(m2). O2 Therapy: Room Air Temp (24hrs), Av.3 ?C (97.3 ?F), Min:36 ?C (96.8 ?F), Max:36.5 ?C (97.7 ?F) NET FLUID BALANCE Intake/Output Summary (Last 24 hours) at 01/12/2020 1538 Last data filed at 01/12/2020 1505 Gross per 24 hour Intake 620 ml Output 900 ml Net -280 ml MEDICATIONS Current Facility-Administered Medications Medication Dose Route Frequency - amiodarone 400 mg tab(s) (PACERONE) 400 mg ORAL TID - enoxaparin 30 mg injection (LOVENOX) 30 mg SUBCUTANEOUS q 24 HR - metoprolol tartrate (short acting) 25 mg tab(s) (LOPRESSOR) 25 mg ORAL q 8 H - insulin lispro 4 Units pen (rapid acting) (HumaLOG KWIKPEN) 4 Units SUBCUTANEOUS w MEALS - insulin glargine 8 Units pen (long acting) (LANTUS SOLOSTAR, BASAGLAR KWIKPEN) 8 Units SUBCUTANEOUS DAILY (8 AM) - amiodarone 360 mg in D5W 200 mL (NEXTERONE) 0.5 mg/min INTRAVENOUS CONTINUOUS - pantoprazole DR 40 mg tab(s) (PROTONIX) 40 mg ORAL DAILY (6 AM) - dextrose 50% in water 25 mL syringe 12.5 g INTRAVENOUS PRN - potassium chloride iv piggyback 20 mEq/100 mL 20 mEq INTRAVENOUS PRN - magnesium sulfate in water 2 g in sterile water 50 ml 2 g INTRAVENOUS PRN(NO DISPENSE) - acetaminophen 1,000 mg tab(s) (TYLENOL) 1,000 mg ORAL/FEEDING TUBE q 6 H - albuterol 2.5 mg /3 mL (0.083 %) 2.5 mg (PROVENTIL) 2.5 mg INHALATION q 2 H PRN - atorvastatin 40 mg tab(s) (LIPITOR) 40 mg ORAL AT BEDTIME - ondansetron (PF) 4 mg injection (ZOFRAN) 4 mg INTRAVENOUS q 6 H PRN - calcium chloride 1 g in D5W 100 mL 1 g INTRAVENOUS PRN(NO DISPENSE) - lidocaine 4 % 1 Patch (SALONPAS) 1 Patch TRANSDERMAL DAILY And - lidocaine patch - REMOVE OTHER AT BEDTIME And - lidocaine - VERIFY PATCH OTHER q 8 H - bisacodyl 10 mg suppository (DULCOLAX) 10 mg RECTAL DAILY PRN - magnesium oxide 400 mg tab(s) (MAG-OX) 400 mg ORAL DAILY - polyethylene glycol 3350 17 g packet (MIRALAX, GLYCOLAX) 17 g ORAL DAILY - senna-docusate 8.6-50 mg 1 tablet (SENNA-S) 1 tablet ORAL BID - traMADol 50-100 mg tab(s) (ULTRAM) 50-100 mg ORAL q 6 H PRN Lines, Drains, and Airways Line Peripheral 01/03/20 1849 Admission to Hospital Short Left Forearm 20 Gauge 8 days Peripheral 01/04/20 1618 Short Right Antecubital 20 Gauge 7 days Central Line Quadruple Lumen 01/09/20 0802 Pulmonary Artery Catheter Right Neck 3 days Airway Airway Endotracheal Tube -- days PHYSICAL EXAM PERFORMED: General: no acute distress. Throat with normal mucosa. Class III Mallampati Cardiovascular: Regular rhythm Respiratory: left pleural rub Abdomen: Soft, Nontender and Positive bowel sounds Extremities: Edema- No Neurologic: Awake, oriented, Alert, Follows commands and Moving all extremities Respiratory/Nursing Documentation: O2 Therapy: Room Air (01/12/20 1400) Invasive Ventilator Mode: Synchronized Intermittent Mandatory Ventilation (01/09/20 1410) Set Ventilator Respiratory Rate (BPM): 12 (01/09/20 1410) Total Respiratory Rate (BPM): 12 (01/09/20 1410) Tidal Volume Set (mL): 500 (01/09/20 1410) Exhaled Tidal Volume (mL): 487 (01/09/20 1410) Minute Volume (L): 8.5 (01/09/20 1410) Peak Inspiratory Pressure (cm H2O): 23 (01/09/20 1410) PEEP/CPAP (cm H2O): 5 (01/09/20 141) HEMODYNAMIC DATA: Reviewed NUTRITION: Enteral Feeds: Yes Heart healthy DATA: Diagnostic tests reviewed for today's visit, films/specimens were personally reviewed by me: Most recent labs and imaging results. LABS: Recent Labs 01/12/20 0625 01/11/20 0515 01/10/20 0410 WBC 17.62* 18.11* 20.17* RBC 3.45* 3.58* 3.66* HB 10.3* 10.7* 11.1* HCT 32.6* 33.9* 33.8* MCV 94.5 94.7 92.3 PLT 124* 108* 150* GLUC 173* 69* 122* BUN 46* 39* 30* CREAT 1.96* 1.81* 1.55* NA 136 138 143 K 4.7 4.8 4.8 CHLOR 106 111* 116* CO2 23 20* 19* CA 8.2* 8.2* 8.0* PTSEC -- -- 11.1 INR -- -- 1.03 MG -- 2.3 2.2 ABG: Recent Labs 01/10/200 PH 7.357 PO2 110.0* PCO2 33.8* Assessment/Plan IMPRESSION: Critical Care Documentation: The patient has the following organ/system impairment(s): anticipated post op respiratory insufficiency 1. Anticipated acute post op respiratory insufficiency 2. Post op CABG x4 3. Ischemic cardiomyopathy 5. Acute on chronic renal failure 6. DM type 2 7. Obesity 8. LLL atelectasis MMP CRITICAL CARE PLAN: Consider gentle hydration- Nephro following Continue incentive spirometry On Amiodarone drip This patient has a high probability of sudden, clinically significant deterioration, which requires the highest level of physician preparedness to intervene urgently. I managed/supervised life or organ supporting interventions that required frequent physician assessment. I devoted my full attention to the direct care of this patient for the amount of time indicated below. Time I spent with family or surrogate(s) is included only if the patient was incapable of providing the necessary information or participating in medical decision making. Time devoted to teaching is not included. Discussed with staff/patient/family Time spent providing critical care services: 30 minutes excluding procedures. SIGNATURE: Cesar Marinelli DO PATIENT NAME: Concha Woodward DATE: January 12, 2020 TIME: 3:38 PM Normal [facility] PROGRESS HNO ID: [id number] Author: Cesar Burroughs Service: Nephrology Author Type: Physician Type: Progress Notes Filed: 01/12/2020 1:00 PM Note Text: [facility]ph[facility] Progress Note Subjective/ INTERVAL HISTORY: We are seeing the patient for issues with SHA and ?New onset CHF Cr is?up still Rate of rise is slowed Denies any SOB, up in the chair S/p CABG?on 01/08 Weaned off all pressors now noted CXR showed + congestion today noted All labs / data/ chart and interval events are noted BP has been stable No issues with urine output Responding to current rx at this time No other new issues No change in the PFSH at this time ROS is (-) unless mentioned Objective/ 01/12/20 1027 01/12/20 1100 01/12/20 1115 01/12/20 1205 BP: 110/67 117/67 128/69 Pulse: 79 70 70 71 Resp: 21 16 18 18 Temp: TempSrc: SpO2: 97% 97% 96% 97% Weight: Height: 24HR INTAKE/OUTPUT: Intake/Output Summary (Last 24 hours) at 01/12/2020 1259 Last data filed at 01/12/2020 1015 Gross per 24 hour Intake 240 ml Output 800 ml Net -560 ml ? Constitutional:??extuba petar, in chair, awake, alert, NAD HEAD, EYES, ENT: ?No pallor. ?No cyanosis. ?No icterus. ?Mucous membranes of mouth ?were moist. NECK: ?Otherwise supple. ?Hard for me to see a jugular vein distention elevation. ?LUNGS: ?Clear to auscultation. ?No rales. CARDIOVASCULAR: ?S1, S2. ?No rubs or gallops.CT are noted ABDOMEN: ?Soft, obese, nontender. ?Bowel sounds are heard. EXTREMITIES: ?No peripheral edema. SKIN: ?Otherwise warm and moist. PSYCH: ?Normal affect. ?Does not appear to be anxious, depressed, or agitated. ERIN park noted Good urine Current Facility-Administered Medications Medication Dose Route Frequency - amiodarone 400 mg tab(s) (PACERONE) 400 mg ORAL TID - metoprolol tartrate (short acting) 25 mg tab(s) (LOPRESSOR) 25 mg ORAL q 8 H - insulin lispro 4 Units pen (rapid acting) (HumaLOG KWIKPEN) 4 Units SUBCUTANEOUS w MEALS - insulin glargine 8 Units pen (long acting) (LANTUS SOLOSTAR, BASAGLAR KWIKPEN) 8 Units SUBCUTANEOUS DAILY (8 AM) - amiodarone 360 mg in D5W 200 mL (NEXTERONE) 0.5 mg/min INTRAVENOUS CONTINUOUS - pantoprazole DR 40 mg tab(s) (PROTONIX) 40 mg ORAL DAILY (6 AM) - dextrose 50% in water 25 mL syringe 12.5 g INTRAVENOUS PRN - aspirin 81 mg chewable tab(s) 81 mg ORAL DAILY - potassium chloride iv piggyback 20 mEq/100 mL 20 mEq INTRAVENOUS PRN - magnesium sulfate in water 2 g in sterile water 50 ml 2 g INTRAVENOUS PRN(NO DISPENSE) - acetaminophen 1,000 mg tab(s) (TYLENOL) 1,000 mg ORAL/FEEDING TUBE q 6 H - albuterol 2.5 mg /3 mL (0.083 %) 2.5 mg (PROVENTIL) 2.5 mg INHALATION q 2 H PRN - atorvastatin 40 mg tab(s) (LIPITOR) 40 mg ORAL AT BEDTIME - ondansetron (PF) 4 mg injection (ZOFRAN) 4 mg INTRAVENOUS q 6 H PRN - calcium chloride 1 g in D5W 100 mL 1 g INTRAVENOUS PRN(NO DISPENSE) - lidocaine 4 % 1 Patch (SALONPAS) 1 Patch TRANSDERMAL DAILY And - lidocaine patch - REMOVE OTHER AT BEDTIME And - lidocaine - VERIFY PATCH OTHER q 8 H - bisacodyl 10 mg suppository (DULCOLAX) 10 mg RECTAL DAILY PRN - magnesium oxide 400 mg tab(s) (MAG-OX) 400 mg ORAL DAILY - polyethylene glycol 3350 17 g packet (MIRALAX, GLYCOLAX) 17 g ORAL DAILY - senna-docusate 8.6-50 mg 1 tablet (SENNA-S) 1 tablet ORAL BID - traMADol 50-100 mg tab(s) (ULTRAM) 50-100 mg ORAL q 6 H PRN Data/ CBC, Coags, BMP, Mg, Phos Recent Labs 01/12/20 0625 01/11/20 0515 01/10/20 0410 01/09/20 1415 WBC 17.62* 18.11* 20.17* 30.65* HB 10.3* 10.7* 11.1* 13.9 HCT 32.6* 33.9* 33.8* 42.3 PLT 124* 108* 150* 182 INR -- -- 1.03 1.09 APTT -- -- -- 29.2 NA 136 138 143 144 K 4.7 4.8 4.8 3.5 CHLOR 106 111* 116* 115* CO2 23 20* 19* 20* BUN 46* 39* 30* 28* CREAT 1.96* 1.81* 1.55* 1.26* GLUC 173* 69* 122* 187* CA 8.2* 8.2* 8.0* 8.5 MG -- 2.3 2.2 2.6 Assessment/ 84 year old female who presents with ? 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 We will follow Avoid all renal toxins Dose meds for GFR < 30 Normal [facility] PROGRESS HNO ID: [id number] Author: Vish Hardy (Pa) Service: Cardiovascular Surgery Author Type: Physician Security Representative Type: Progress Notes Filed: 01/12/2020 1:24 PM Note Text: CARDIOTHORACIC SURGERY POSTOP PROGRESS NOTE SERVICE DATE: 01/12/2020 SERVICE TIME: 1:14 PM Subjective S/P SURGERY: Procedure(s) (LRB): BYPASS GRAFT ARTERY CORONARY ON-PUMP FOUR CORONARY ARTERIAL GRAFTS GHOHS - LAD / /DCA, SVG - PDA / CX WITH ENDOVASCULAR VEIN HARVESTING (N/A) DATE OF SURGERY: 01/09/2020 POSTOP DAY #3 LOS: 9 INTERVAL EVENTS / PERTINENT ROS: Patient seen and examined. Afib RVR overnight. Amiodarone gtt started. Currently in NSR. Not eating much (< 25% of meals). + Flatus, no BM. Right leg painful but controlled with APAP. Breathing stable. Difficulty with ambulating >> PT recs acute rehab. Objective Admission Weight: 73.3 kg (161 lb 9.6 oz) BP 117/67 Pulse 70 Temp 36 ?C (96.8 ?F) (Temporal) Resp 18 Ht 160 cm (5' 3) Wt 82.6 kg (182 lb 1.6 oz) SpO2 96% BMI 32.26 kg/m? Body surface area is 1.92 meters squared. Min/Max/Average Temperature AND Blood Pressure: Temp (24hrs), Av.3 ?C (97.3 ?F), Min:36 ?C (96.8 ?F), Max:36.5 ?C (97.7 ?F) Systolic (24hrs), Av , Min:109 , Max:142 Diastolic (24hrs), Av, Min:64, Max:79 Intake/Output Summary (Last 24 hours) at 01/12/2020 1200 Last data filed at 01/12/2020 0600 Gross per 24 hour Intake 120 ml Output 575 ml Net -455 ml TELEMETRY: normal sinus rhythm PHYSICAL EXAM: General Appearance: In chair with family present. NAD. Skin: Midsternal incision dry AND intact. and SVG incisions dry AND intact. Head/Eyes: NCAT. EOMI Neck: RIJ present. Supple. No JVD Lungs: Diminished with crackles left base. No wheeze. Heart: regular rhythm Peripheral Vascular/Arteries: dorsalis pedis 1+ and radial 2+ Abdomen: soft, non-tender and bowel sounds present Neurologic/Psychiatric: alert Extremities: Trace LE edema Lines, Drains, and Airways Line Peripheral 01/03/20 1849 Admission to Hospital Short Left Forearm 20 Gauge 8 days Peripheral 01/04/20 1618 Short Right Antecubital 20 Gauge 7 days Central Line Quadruple Lumen 01/09/20 0802 Pulmonary Artery Catheter Right Neck 3 days Airway Airway Endotracheal Tube -- days DATA: Diagnostic tests reviewed for today's visit: CXR: Status post removal of [place]-Veto catheter. ?Left-sided chest tube, mediastinal drain, and pericardial drain have been removed. Recent Labs 01/12/20 0625 01/11/20 0515 01/10/20 0410 01/09/20 1415 RBC 3.45* 3.58* 3.66* 4.58 WBC 17.62* 18.11* 20.17* 30.65* HB 10.3* 10.7* 11.1* 13.9 HCT 32.6* 33.9* 33.8* 42.3 PLT 124* 108* 150* 182 INR -- -- 1.03 1.09 APTT -- -- -- 29.2 NA 136 138 143 144 K 4.7 4.8 4.8 3.5 CHLOR 106 111* 116* 115* CO2 23 20* 19* 20* BUN 46* 39* 30* 28* CREAT 1.96* 1.81* 1.55* 1.26* GLUC 173* 69* 122* 187* CA 8.2* 8.2* 8.0* 8.5 MG -- 2.3 2.2 2.6 ANION 12 12 13 13 Recent Labs 01/10/20 0410 01/09/20 1415 01/09/20 1344 01/09/20 1302 01/09/20 1203 PH 7.357 7.343* 7.311* 7.309* 7.373 PCO2 33.8* 33.9* -- -- -- PO2 110.0* 78.9* 87.0 314.0* 415.0* BE -5.8* -6.5* -- -- -- HCO3 -- -- 16.7* 18.2* 23.5 Assessment/Plan NSTEMI/ CAD -s/p CABG x 4 (ghosh-lad sequenced with diag; svg-om, rpl; evh); POD#3 -Increase ASA to 162, continue atorvastatin 40, metoprolol 25 TID -Plavix once HD stable re: ACS -Vest added (DM, BMI > 30, CKD) -Maintain central line until tomorrow -Bowel regimen -Pain control per ERAS -IS/ PT/ OT >> acute rehab suggested ? Atrial fibrillation RVR -Currently NSR -Rhythm/rate control with amiodarone/ metoprolol; add PO amiodarone -Defer OAC since in NSR; if recurrent then start Eliquis at 2.5 mg BID (age> 80/ Cr > 1.5) -CHADS2 score: 6 -[id number] VASc score: 9 Anticipated post-op respiratory insufficiency -Resolved -Continue to use IS/ ambulate ? Leukocytosis -17 -Afebrile -Monitor Thrombocytopenia -Trending up to 124 Acute blood loss anemia -2/2 OR -Hgb stable at 10.3 -No indication for transfusion A/CKD -Cr up to 1.9 -Defer diuretic Tx to nephrology -Nephro on consult; appreciate recs ? DM2 -Endo following -Appreciate recs ? HFrEF -2/2 ICM -EF 30% -Metoprolol started -Defer ACEi until HD stable and Cr stable ? HTN -Defer ACEi ? HLD -Atorvastatin ? DVT ppx -Start Lovenox (30mg for CrCl < 30) -Cont SCD to LLE (pain with RLE) ? GI ppx -Protonix? Remote Hx of CVA Tests/Labs Ordered: 1. CBC 2. BMP 3. CXR SIGNATURE: Vish Hardy PA-C PATIENT NAME: Concha Woodward DATE: January 12, 2020 TIME: 12:00 PM PAGER/CONTACT #: [phone] [id number] Normal [facility] THERAPY NTon 01-12-2020 THERAPY NT HNO ID: [id number] Author: Myranda (Pt) Arvin Service: Physical Therapy Author Type: Physical Therapist Type: Therapy (PT/OT/Speech/Resp) Filed: 01/12/2020 4:13 PM Note Text: Physical Therapy Evaluation SERVICE DATE: 01/12/2020 SERVICE TIME: 1006 to 1030 ROOM: [place] [address] Recommended Discharge Disposition: Acute Rehab Recommended Discharge Disposition Comments: Patient below baseline of indoependence and would benefit from Acute Rehab prior to discharge home to improve ambulation toelrance and strength for improved safety and indpendence and progression towards prior level of function Justification For Post Acute Needs: Anticipate patient will tolerate 3 hours of daily therapy at the time of admission to post-acute setting;Cognition intact;Good family support;Living the community premorbidly;Motivated;W illing to participate PT Recommendations to Nursing: Ambulate with device;To bathroom;In halls;OOB for Meals;With assist of 1 person;With assist of 2 people Device: (CVICU cart ) PT 6 Clicks Score: 15 Precautions/Activity Restrictions: Fall Risk;Lines/Tubes/Drains ;Sternal ASSESSMENT : This patient was admitted for STEMI , has the past medical history of stroke, DM2, CAD, HTN, HLD impacting current functional level, as well as the social factors complicating the discharge of flight of stairs to bathroom and main living area. This patient is below baseline functioning of independence and will benefit from continued skilled therapy in the hospital for treatment of the following body systems/impairments: musculoskeletal, integumentary, cardiopulmonary, neuromuscular (gait, transfers, bed mobility, balance, safety and strengthening). Patient Disposition at Start of Session: OOB in Chair;Call [facility] in Reach Patient Disposition at End of Session: OOB in Chair;Call [facility] in Reach;Nursing Personnel Present Tolerance Limited By Fatigue;Pain Physical Therapy Problem List: Education Deficit;Decreased Activity Tolerance;Decreased Strength;Functional Mobility Impairment;Balance Impaired Patient /Caregiver Goals: Go Home Goals for Plan of Care: Able to perform HEP with: Independent Transfer sit to/from stand with: Independent Ambulate with: Independent Distance: 50 Device: No Device Ambulate up and down steps with: Contact Guard Assistance Number of steps: 2 Device: Rail Rehab Potential: Good PLAN: Treatment Frequency (times per week): 5(3-5) Current admission Treatment Interventions: Energy Conservation Training;Strengthening; Functional Mobility Training;Balance Training Plan of Care developed with: Patient TREATMENT INTERVENTIONS: Therapy Diagnosis: Muscle Weakness (generalized);Unsteadin ess on feet Interventions Provided: Evaluation;Gait Training (16279) $ Evaluation-Moderate (07582) Billed Units: 1 unit History and examination of body systems see assessment section above. This patient?s clinical presentation is evolving. The patient required a moderate complexity evaluation. Gait Training (71006) Treatment Minutes: 9 1 unit Skilled Intervention(s): Instruction in sit to stand technique with proper hand placement hugging pillow and body positioning at edge of bed/chair. Instructed and educated patient on importance of not using hands on arm rests to push into standing to protect surgical incision. Instruction in stand to sit technique with LE's touching chair/bed and continuing to hug pillow to avoid reaching back for arm rests to protect surgical incision at sternum. Instructed patient to stand tall and look forward while pushing cardiac cart. Patient ambulating with slow jeffrey and shuffling steps. Patient able to ambulate ~5 feet before becoming fatigued and leaning over on cardiac cart. Instructed patient to avoid leaning on cart and to stand tall while breathing in through nose and out through mouth. Patient very fatigued and needed positive encouragement to ambulate ~50 feet. Chair follow and pushed patient back to room due to patient being too fatigued to ambulate any further. Educated patient on sternal precautions including no raising arms above shoulder height, no pushing or pulling and to avoid lifting objects heavier than a gallon of milk (~10 pounds). Total Timed Code Treatment Minutes: 9 Total Treatment Time (minutes): 24 SUBJECTIVE: Current Hospital Course: Chart reviewed; 84 year old female presented with STEMI at [facility] after going for CABG eval. s/p CABG x4 01/09/20. Reason for Physical Therapy Consult : eval and treat Relevant Past Medical History: stroke, DM2, CAD, HTN, HLD Patient Report: I am just so tired, how much further do I have to walk. Patient agreeable to therapy session. Patient reported back pain and presenting with fatigue and decreased tolerance to ambulation. 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 [employer], patient did not use an asisstive device at home for ambulation, drives, independent with IADL's OBJECTIVE: Range of Motion: WFL Strength: Lower Extremity Comments Right Lower Extremity Strength Comments: 3+/5 Left Lower Extremity Strength Comments: 3+/5 CURRENT FUNCTIONAL STATUS: Current Functional Mobility Assist Level Additional Information Rolling Supine to Sit Sit to Supine Scooting Sit to Stand Moderate Assistance Stand to Sit Moderate Assistance Bed to Chair Toilet/Commode Gait Minimal Assistance Gait Device: (CVICU cart ) Gait Distance (feet): 5 ft intervals, total ~50 feet Stairs Curb Step Car Transfer General Deviations/Observations : Jeffrey decreased;Flexed trunk posture;Non-functional gait speed;Shuffling Gait;Step length decreased Balance: Static Standing;Dynamic Standing Static Standing Balance: Fair Patient able to maintain balance with handhold support, may require occasional minimal assistance Dynamic Standing Balance: Poor Patient unable to accept challenge or move without loss of balance Activity Tolerance: Standing Activity Standing Activity: gait Standing Activity Tolerance (in minutes): 6 JH-HLM: 7: Walk 25 feet or more Please see discipline specific clinical documentation flowsheet for complete details for this therapy evaluation/treatment. SIGNATURE: Myranda Sheridan PT PATIENT NAME: Concha Woodward DATE: January 12, 2020 TIME: 10:38 AM Normal [facility] XR CHEST 1V FRONTALon 2019 XR CHEST 1V FRONTAL * * *Final Report* * * DATE OF EXAM: Jan 12 2020 4:56AM AKX [id number] - XR CHEST 1V FRONTAL / PROCEDURE REASON: Post-operative / post-procedure assessment, asymptomatic * * * * Physician Interpretation * * * * EXAMINATION: CHEST RADIOGRAPH (SINGLE VIEW AP OR PA) CLINICAL HISTORY: Post-operative / post-procedure assessment, asymptomatic MQ: XC1_5 Comparison: 01/11/2020 at 04 30 RESULT: Lines, tubes, and devices: Right internal jugular Phoenix-Veto catheter has been removed. A venous sheath remains in place. Left-sided chest tube, mediastinal drain, pericardial drain have been removed. Lungs and pleura: No pneumothorax. Subsegmental atelectasis at both lung bases. Cardiomediastinal silhouette: Heart size normal. Other: None. IMPRESSION: Status post removal of Phoenix-Veto catheter. Left-sided chest tube, mediastinal drain, and pericardial drain have been removed. Web Developer: PSCB Transcribe Date/Time: Jan 12 2020 7:02A Dictated by : MICKY PA MD This examination was interpreted and the report reviewed and electronically signed by: MICKY PA MD on Jan 12 2020 7:03AM EST Normal [facility] Basic Panelon 01-11-2020 Creatinine [Mass/Vol] 1.81 mg/dL High 0.51-0.95 [facility] Comment on above: Result Comment: Use of this assay is not recommended for patients undergoing treatment with phenindione, due to the potential for falsely depressed results. Performed By: #### H A1C #### [place] [address] Anion gap [Moles/Vol] 12 mmol/L Normal 8-16 [facility] Comment on above: Performed By: #### H A1C #### [facility] [address] [place], [place] [address] CO2 [Moles/Vol] 20 mmol/L Low 21-32 [facility] Comment on above: Performed By: #### H A1C #### [facility] [address] [place], [place] [address] Urea nitrogen [Mass/Vol] 39 mg/dL High 7-18 [facility] Comment on above: Performed By: #### H A1C #### [facility] [address] [place], [place] [address] Calcium [Mass/Vol] 8.2 mg/dL Low 8.5-10.1 [facility] Comment on above: Performed By: #### H A1C #### [facility] [address] [place], [place] [address] Glucose [Mass/Vol] 69 mg/dL Low 70-99 [facility] Comment on above: Performed By: #### H A1C #### [facility] [address] [place], [place] [address] Chloride [Moles/Vol] 111 mmol/L High 98-107 [facility] Comment on above: Performed By: #### H A1C #### [facility] [address] [place], [place] [address] Potassium [Moles/Vol] 4.8 mmol/L Normal 3.5-5.1 [facility] Comment on above: Performed By: #### H A1C #### [facility] [address] [place], [place] [address] Sodium [Moles/Vol] 138 mmol/L Normal 136-145 [facility] Comment on above: Performed By: #### H A1C #### [address] [address] CONSULT PROGon 01-11-2020 CONSULT PROG HNO ID: [id number] Author: Ann Echeverria Service: Endocrinology Author Type: Physician Type: Consult Progress Note Filed: 01/13/2020 12:05 AM Note Text: ENDOCRINOLOGY CONSULT PROGRESS NOTE SERVICE DATE: 01/11/2020 SERVICE TIME: 12:57 PM Subjective INTERVAL HPI: followed for DM type 2 on insulin MDI; can not tolerate metformin due to diarrhea; has CAD;s/p CABG today 01/09/2020 She was admitted there with chest pain and was found to have coronary artery disease. Patient has history of angioplasty 30 years ago. ?H/o CAD and remote FL now admitted with NSTEMI who is found to have severe MV CAD and ischemic CM with EF 30%, no CHF, in a setting of DM, HTN, HLD, CKD, remote CVA. Regarding diabetes, patient has history of type 2 diabetes for about 5 years. At home, patient takes Basaglar 9 units every morning and she takes NovoLog 8 units for breakfast and dinner and 6 units for lunch. Her A1c was 7.6 on December 25, now her A1c is 8.4. s/p CABG on IV insulin gtt per CABG protocol now off; off of pressors; poor po intake; on prandial humalog 8 units qac tid DIET HEART HEALTHY Recent Labs 01/11/20 1207 01/11/20 0758 01/11/20 0516 01/11/20 0515 01/10/20 0410 01/09/20 1415 GLUC -- -- -- 69* -- 122* -- 187* GLUCOSEMETER 68* 95 84 -- < > -- < > -- < > = values in this interval not displayed. Current Facility-Administered Medications Medication Dose Route Frequency - insulin regular iv infusion 100 units in NaCl 0.9% 100 mL - AK CARD SURG NOMOGRAM 0-12 Units/hr INTRAVENOUS CONTINUOUS - insulin regular human iv bolus 10 Units 10 Units INTRAVENOUS PRN - dextrose 50% in water 25 mL syringe 12.5 g INTRAVENOUS PRN - aspirin 81 mg chewable tab(s) 81 mg ORAL DAILY - potassium chloride iv piggyback 20 mEq/100 mL 20 mEq INTRAVENOUS PRN - magnesium sulfate in water 2 g in sterile water 50 ml 2 g INTRAVENOUS PRN(NO DISPENSE) - acetaminophen 1,000 mg tab(s) (TYLENOL) 1,000 mg ORAL/FEEDING TUBE q 6 H - albuterol 2.5 mg /3 mL (0.083 %) 2.5 mg (PROVENTIL) 2.5 mg INHALATION q 2 H PRN - atorvastatin 40 mg tab(s) (LIPITOR) 40 mg ORAL AT BEDTIME - ondansetron (PF) 4 mg injection (ZOFRAN) 4 mg INTRAVENOUS q 6 H PRN - calcium chloride 1 g in D5W 100 mL 1 g INTRAVENOUS PRN(NO DISPENSE) - lidocaine 4 % 1 Patch (SALONPAS) 1 Patch TRANSDERMAL DAILY And - lidocaine patch - REMOVE OTHER AT BEDTIME And - lidocaine - VERIFY PATCH OTHER q 8 H - bisacodyl 10 mg suppository (DULCOLAX) 10 mg RECTAL DAILY PRN - magnesium oxide 400 mg tab(s) (MAG-OX) 400 mg ORAL DAILY - NaCl 0.9% 250 mL iv bolus 250 mL INTRAVENOUS Post-Op PRN - polyethylene glycol 3350 17 g packet (MIRALAX, GLYCOLAX) 17 g ORAL DAILY - senna-docusate 8.6-50 mg 1 tablet (SENNA-S) 1 tablet ORAL BID - traMADol 50-100 mg tab(s) (ULTRAM) 50-100 mg ORAL q 6 H PRN - morphine 2-4 mg injection 2-4 mg INTRAVENOUS q 1 H PRN - pantoprazole DR 40 mg tab(s) (PROTONIX) 40 mg ORAL DAILY (6 AM) - insulin lispro 8 Units pen (rapid acting) (HumaLOG KWIKPEN) 8 Units SUBCUTANEOUS w MEALS - metoprolol tartrate (short acting) 25 mg tab(s) (LOPRESSOR) 25 mg ORAL q 8 H Objective PHYSICAL EXAM:BP 130/64 Pulse 109 Temp (Src) 97.9 (Temporal) Resp 18 Ht 5' 3 (1.60m) Wt 176 lb 3.2 oz (79.9kg) SpO2 92% BMI 31.22 kg/(m2). O2 Therapy: Nasal Cannula, Liters: 3 NAD, extubated RRR +chest tubes abd soft No edema DATA: Diagnostic tests reviewed for today's visit: Most recent labs and imaging results. Assessment/Plan Diabetes mellitus type 2; HbA1c 8.4; on lantus 12 units daily and humalog 8 units qac tid plus correction; was iv insulin gtt per CABG protocol until now when was turned off; BS 68 mg/dl; poor po intake; off of pressors; On prandial humalog 8 units qac tid will decrease to 4 units qac tid and start lantus 8 units daily; d/c iv insulin gtt SHA/CKS stage III; S creat 1.8(1.55)(1.26)(1.44)(1 .46)(1.8)(2.1) (baseline 1.3) ACS (acute coronary syndrome) (HCC) POA: Yes Assessment AND Plan: EF 30%; s/p CABG 01/09/2020 SIGNATURE: Ann Echeverria MD PATIENT NAME: Concha Woodward DATE: January 11, 2020 TIME: 1:00 PM PAGER: [phone] Normal [facility] Hemogramon 01-11-2020 Erythrocyte distribution width (RBC) [Ratio] 15.9 % High 11.7-14.4 [facility] Comment on above: Performed By: #### H A1C #### [place] [address] Hematocrit (Bld) [Volume fraction] 33.9 % Low 34.1-44.9 [facility] Comment on above: Performed By: #### H A1C #### [place] [address] Hemoglobin (Bld) [Mass/Vol] 10.7 g/dL Low 11.2-15.7 [facility] Comment on above: Performed By: #### H A1C #### [place] [address] MCH (RBC) [Entitic mass] 29.9 pg Normal 25.6-32.2 [facility] Comment on above: Performed By: #### H A1C #### [place] [address] MCHC (RBC) [Mass/Vol] 31.6 % Normal 31.6-34.8 [facility] Comment on above: Performed By: #### H A1C #### [place] [address] MCV (RBC) [Entitic vol] 94.7 fL Normal 79.4-94.8 [facility] Comment on above: Performed By: #### H A1C #### [place] [address] Platelet mean volume (Bld) [Entitic vol] 12.5 fL High 9.4-12.3 [facility] Comment on above: Performed By: #### H A1C #### [facility] [address] [place] [address] Platelets (Bld) [#/Vol] 108 thou/cmm Low 182-369 [facility] Comment on above: Performed By: #### H A1C #### [facility] [address] [place] [address] RBC (Bld) [#/Vol] 3.58 mil/cmm Low 3.93-5.22 [facility] Comment on above: Performed By: #### H A1C #### [place] [address] RDW SD 53.9 fl High 36.4-46.3 [facility] Comment on above: Performed By: #### H A1C #### [facility] [address] [place] [address] WBC (Bld) [#/Vol] 18.11 thou/cmm High 3.98-10.04 [facility] Comment on above: Performed By: #### H A1C #### [place] [address] Magnesium Bloodon 01-11-2020 Magnesium [Mass/Vol] 2.3 mg/dL Normal 1.6-2.6 [facility] Comment on above: Performed By: #### H A1C #### [place] [address] NURSING PROGon 01-11-2020 NURSING PROG HNO ID: [id number] Author: Rama (Rn) RITA Barraza Service: Nursing Author Type: Registered Nurse Type: Nursing Progress Note Filed: 01/11/2020 3:45 PM Note Text: Amilcar Laws removed from RT IJ.Tolerated well. No ectopy noted. Introducer cap placed over opening.Pt tolerated well. Normal [facility] PROGRESSon 01-11-2020 PROGRESS HNO ID: [id number] Author: Yanet Rivera Service: Thoracic Surgery Author Type: Physician Type: Progress Notes Filed: 01/11/2020 11:12 AM Note Text: CT Surg POD #2 Patient seen with care team, bedside nurse and family member at bedside. Labs, data, cxr, and careplan reviewed. P-as ordered. Normal [facility] PROGRESS HNO ID: [id number] Author: Anson Beaver Service: Critical Care Author Type: Physician Type: Progress Notes Filed: 01/11/2020 9:34 AM Note Text: Pain is 6/10 and also has some back pain. No major overnight events. No nausea or vomiting. No other complaints. Full ROS with the pt and RN done. Off epi since last night. UOP is marginal. ? On exam: 107/ 52, 86, 12, 36.5, 97% on 4 liters NC Right IJ Phoenix-Veto [place] in place Chest tubes with no leak Right brachial A-line ? NAD, elderly woman; up in chair; pleasant O times 3, no FND RRR Mostly CTA B Soft, ND, BS present. NT No pedal edema; right leg with VG site has dressing ? CO/ CI - does not seem reliable mPAP 22-25 ? IO: 800/ 1.0 ? Data: 7.35/ 33/ 110 Na 138, K 4.8, Cl 111, HCO3 20, BUN 39, Cr 1.8, Glu 69 WCC 18, Hb 10.7, Plt 108 ? CXR?reviewed and shows right IJ Phoenix, chest tubes in place; increase in bilateral effusions with atelectasis vs consolidation ? CT chest: Thoracic aorta is within normal limits. ?Widely scattered tiny nodules measuring 4 mm or less. ?If clinically indicated, follow-up in one year could be considered. ?Lobular contour to the kidneys making it difficult to exclude mass lesion. ?Ultrasound is recommended. ?There is a punctate nonobstructive right renal calculus. ? LHC: Multivessel CAD ? ECHO: Moderate segmental systolic dysfunction; EF 30%, mildly enlarged LA, 2+ MR, diastolic function is indeterminate ? IMPRESSION:? Ms Woodward is an 84 year old white woman with PMH of FL/ CAD, DM-II, hx of CVA, HTN, diverticulosis, gout, and HL had initially presented to [facility] for chest pain, found to have STEMI. ?She was then transferred here for further care. ?She was found to have multi-vessel CAD and so underwent CABG today. ? 1. Acute anticipated post-op respiratory insufficiency; s/p extubation and improving 2. S/p CABG * 4;??GHOSH side to side to diag and end to side to LAD in sequential fashion,?SVG?side to side to OM and end to side to posterolateral branch of RCA in sequential fashion; POD # 2 3. Acute systolic heart failure, likely ischemic; EF 30% 4. Bilateral effusions with atelectasis 5. 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 Multivessel CAD/ STEMI at presentation 7. DM-II 8. Left basilar atelectasis ? PLAN:? - monitor off pressors/ inotropes - will need gentle diuresis - Phoenix can come out today and also chest tubes/ Park - IS Q1wean - BS per endo - chest tubes per Dr Rivera - will follow with you - mobilize - wean FiO2 as tolerated ? Code status:?full ? PROGNOSIS:?Guarded ? Patient/Family Updated:?d/w pt and family at the bedside ? Discussed with?RN. ? All documentation from previous visit of 01/10/2020 was copied and pasted, documentation has been reviewed and edited as necessary for today's visit. ? SIGNATURE: Anson Beaver MD [facility] PAGER:[phone] ICU Checklist Last Documented/Reviewed time: 01/11/2020 9:11 AM ------ - ICU Delirium Status: CAM Negative - no action required Restraint Status: None ICU Mobility-Pt Has Been Out of Bed: Yes Line Status: Arterial line, Central multi-lumen catheter Arterial Line Status: Able to remove today Central Line Status: Reason to maintain Central Line Reason to Maintain: Hemodynamic instability, Vasoactive meds Ventilator: None Park Status: Present, will discontinue today GI/Stress Ulcer Prophylaxis: PPI Nutrition is at Goal: Advancing to goal VTE Prophylaxis: Chemoprophylaxis: No chemoprophylaxis Mechanical Prophylaxis: Knee high SCD No Chemoprophylaxis Reason: Other - Specify (Comment: Post-op) Pressure Injury Status: None ICU plan of care visit at bedside in last 24 hours: Yes, Provider, RN, Patient/ designee ICU Disposition- Is Patient Clinically Ready to Transfer to [facility] or SDU?: No Discharge Planning: Home ? Normal [facility] PROGRESS HNO ID: [id number] Author: Gatito Godinez Service: Nephrology Author Type: Physician Type: Progress Notes Filed: 01/11/2020 12:30 PM Note Text: [facility] Nephrology Progress Note Subjective/ INTERVAL HISTORY: We are seeing the patient for issues with SHA and ?New onset CHF Cr is?up today (baseline ~ 1.4) Denies any SOB, up in the chair S/p CABG?on 01/08 Weaned off all pressors now noted CXR showed + congestion today noted All labs / data/ chart and interval events are noted BP has been stable No issues with urine output Responding to current rx at this time No other new issues No change in the PFSH at this time ROS is (-) unless mentioned Objective/ 01/11/20 0600 01/11/20 0700 01/11/20 0730 01/11/20 0800 BP: Pulse: 87 88 88 89 Resp: 16 14 13 14 Temp: TempSrc: SpO2: 99% 98% 98% 98% Weight: Height: 24HR INTAKE/OUTPUT: Intake/Output Summary (Last 24 hours) at 01/11/2020 0838 Last data filed at 01/11/2020 0600 Gross per 24 hour Intake 838 ml Output 930 ml Net -92 ml ? Constitutional:??extuba petar, in chair, awake, alert, NAD HEAD, EYES, ENT: ?No pallor. ?No cyanosis. ?No icterus. ?Mucous membranes of mouth ?were moist. NECK: ?Otherwise supple. ?Hard for me to see a jugular vein distention elevation. ?LUNGS: ?Clear to auscultation. ?No rales. CARDIOVASCULAR: ?S1, S2. ?No rubs or gallops.CT are noted ABDOMEN: ?Soft, obese, nontender. ?Bowel sounds are heard. EXTREMITIES: ?No peripheral edema. SKIN: ?Otherwise warm and moist. PSYCH: ?Normal affect. ?Does not appear to be anxious, depressed, or agitated. with rory noted Good urine Current Facility-Administered Medications Medication Dose Route Frequency - pantoprazole DR 40 mg tab(s) (PROTONIX) 40 mg ORAL DAILY (6 AM) - insulin lispro 8 Units pen (rapid acting) (HumaLOG KWIKPEN) 8 Units SUBCUTANEOUS w MEALS - insulin regular iv infusion 100 units in NaCl 0.9% 100 mL - [place] CARD SURG NOMOGRAM 0-12 Units/hr INTRAVENOUS CONTINUOUS - insulin regular human iv bolus 10 Units 10 Units INTRAVENOUS PRN - dextrose 50% in water 25 mL syringe 12.5 g INTRAVENOUS PRN - aspirin 81 mg chewable tab(s) 81 mg ORAL DAILY - potassium chloride iv piggyback 20 mEq/100 mL 20 mEq INTRAVENOUS PRN - magnesium sulfate in water 2 g in sterile water 50 ml 2 g INTRAVENOUS PRN(NO DISPENSE) - acetaminophen 1,000 mg tab(s) (TYLENOL) 1,000 mg ORAL/FEEDING TUBE q 6 H - lactated ringers infusion 50 mL/hr INTRAVENOUS CONTINUOUS - albuterol 2.5 mg /3 mL (0.083 %) 2.5 mg (PROVENTIL) 2.5 mg INHALATION q 2 H PRN - EPINEPHrine 4 mg in NaCl 0.9% 250 mL 0.5-10 mcg/min INTRAVENOUS CONTINUOUS - atorvastatin 40 mg tab(s) (LIPITOR) 40 mg ORAL AT BEDTIME - ondansetron (PF) 4 mg injection (ZOFRAN) 4 mg INTRAVENOUS q 6 H PRN - calcium chloride 1 g in D5W 100 mL 1 g INTRAVENOUS PRN(NO DISPENSE) - lidocaine 4 % 1 Patch (SALONPAS) 1 Patch TRANSDERMAL DAILY And - lidocaine patch - REMOVE OTHER AT BEDTIME And - lidocaine - VERIFY PATCH OTHER q 8 H - bisacodyl 10 mg suppository (DULCOLAX) 10 mg RECTAL DAILY PRN - magnesium oxide 400 mg tab(s) (MAG-OX) 400 mg ORAL DAILY - NaCl 0.9% 250 mL iv bolus 250 mL INTRAVENOUS Post-Op PRN - polyethylene glycol 3350 17 g packet (MIRALAX, GLYCOLAX) 17 g ORAL DAILY - senna-docusate 8.6-50 mg 1 tablet (SENNA-S) 1 tablet ORAL BID - traMADol 50-100 mg tab(s) (ULTRAM) 50-100 mg ORAL q 6 H PRN - morphine 2-4 mg injection 2-4 mg INTRAVENOUS q 1 H PRN Data/ CBC, Coags, BMP, Mg, Phos Recent Labs 01/11/20 0515 01/10/20 0410 01/09/20 1415 WBC 18.11* 20.17* 30.65* HB 10.7* 11.1* 13.9 HCT 33.9* 33.8* 42.3 PLT 108* 150* 182 INR -- 1.03 1.09 APTT -- -- 29.2 NA 138 143 144 K 4.8 4.8 3.5 CHLOR 111* 116* 115* CO2 20* 19* 20* BUN 39* 30* 28* CREAT 1.81* 1.55* 1.26* GLUC 69* 122* 187* CA 8.2* 8.0* 8.5 MG 2.3 2.2 2.6 Assessment/ 84 year old female who presents with ? 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 Avoid all PAWEL-I , for 72 h until cr is stable We will follow/call if any questions Paxton Godinez MD [facility] Normal [facility] XR CHEST 1V FRONTALon 2019 XR CHEST 1V FRONTAL * * *Final Report* * * DATE OF EXAM: Jan 11 2020 4:44AM AKX [id number] - XR CHEST 1V FRONTAL / PROCEDURE REASON: Post-operative / post-procedure assessment, asymptomatic * * * * Physician Interpretation * * * * EXAM TITLE: AP/PA CHEST X RAY COMPARISON: 01/10/2020 CLINICAL HISTORY: Post-operative / post-procedure assessment, asymptomatic ENCOUNTER: Not applicable MQ: XC1_5 RESULT: Lines, tubes, and devices: Examination limited due to overlying EKG leads. Again demonstrated is left-sided thoracostomy tube with tip overlying the left upper lung zone. Little interval change regarding right internal jugular central venous sheath with associated Phoenix-Veto catheter, catheter tip overlies the main pulmonary artery, unchanged. Again noted is mediastinal drain, unchanged in position. Lungs and pleura: Interval increase in size/conspicuity of small bilateral pleural effusions with associated worsening of atelectasis versus consolidation involving the lung bases. Pulmonary vascular redistribution as well as mild bilateral perihilar haziness. No pneumothorax. Cardiomediastinal silhouette: Mildly enlarged cardiac silhouette, however this is likely accentuated by low lung volumes and portable technique. Again noted are sternotomy wires as well as postsurgical changes from coronary artery bypass graft. Other: Osseous structures and soft tissues grossly intact. IMPRESSION: Interval increase in size of small bilateral pleural effusions with associated atelectasis versus consolidation of the bilateral lower lung zones. Findings suggestive of pulmonary edema versus CHF. Little interval change regarding support lines and catheters, as described above. Web Developer: KURT Transcribe Date/Time: Jan 11 2020 7:03A Dictated by : JEFFY VAUGHN MD This examination was interpreted and the report reviewed and electronically signed by: JEFFY VAUGHN MD on Jan 11 2020 7:06AM EST Normal [facility] ANES Yadi 01-10-2020 ANES POST HNO ID: [id number] Author: Los Villeda Service: Anesthesiology Author Type: Physician Type: Anesthesia PostOp Filed: 01/10/2020 11:36 AM Note Text: POST ANESTHESIA EVALUATION NOTE SERVICE DATE: 01/10/2020 SERVICE TIME: 1135 : 1937 Vitals: 01/10/20 0400 01/10/20 0500 01/10/20 0600 01/10/20 0756 Temp: 37 ?C (98.6 ?F) 37 ?C (98.6 ?F) 37 ?C (98.6 ?F) 37 ?C (98.6 ?F) 01/10/20 0756 01/10/20 0900 01/10/20 0930 01/10/20 1022 Arterial BP 1: 120/52 118/52 111/55 128/57 BP: 01/10/20 0756 01/10/20 0900 01/10/20 0930 01/10/20 1022 Pulse: 89 81 80 82 01/10/20 0756 01/10/20 0900 01/10/20 0930 01/10/20 1022 Resp: 19 20 21 18 01/10/20 0756 01/10/20 0900 01/10/20 0930 01/10/20 1022 SpO2: 99% 99% 99% 98% Validated Vital Signs: Yes POST ANES STATUS: No apparent anesthetic complications. The patient is appropriately hydrated with stable respiratory and cardiovascular status. Patient has safe and adequate airway control. The patient has appropriate pain relief and no significant post operative nausea or vomiting. The patient has achieved baseline mental status. Intra-Operative Events: No Significant Anesthesia Events Further assessment by Anesthesia Service: None Other Remarks: Pt was transported to ICU from OR in stable condition, fully monitored. Report given to receiving staff. SIGNATURE: Los Villeda MD PATIENT NAME: Concha Woodward DATE: January 10, 2020 TIME: 11:35 AM PAGER/CONTACT #: [facility] BRIEF OP NOTon 01-10-2020 BRIEF OP NOT HNO ID: [id number] Author: Darwin Rojo (Pa) Service: Cardiac Surgery Author Type: Physician Security Representative Type: Brief Op Note Filed: 01/10/2020 8:45 AM Note Text: CARDIOTHORACIC BRIEF OP NOTE LOG ID: [id number] SURGERY/PROCEDURE DATE: 01/09/2020 INCISION/PROCEDURE START TIME: 8:17 AM INCISION CLOSE/PROCEDURE END TIME: 1:46 PM SURGEON(S) AND GUN PERFORATOR(S): Surgeon(s) and Role: * Yanet Rivera - Primary Physician Security Representative: Darwin Rojo (Pa) Critical Care Nurse: Juana Baker SA Critical Care Nurse (Relief): Tami Paige SA PROCEDURES AND ANESTHESIA: Procedure(s) and Anesthesia Type: * BYPASS GRAFT ARTERY CORONARY ON-PUMP FOUR CORONARY ARTERIAL GRAFTS GHOSH - LAD / /DCA, SVG - PDA / CX WITH ENDOVASCULAR VEIN HARVESTING - General Great Saphenous Vein, Right, Percutaneous endoscopic ANESTHESIA: General BRIEF FINDINGS: GSV was harvested from the R leg using Hemopro II. The vein was harvested from the proximal thigh to distal 2/3 of the lower leg. There was an anticipated size change in the vein at the level of the medial tibial condyle. The vein was without varicosities and was removed from the leg in a timely fashion without delay of the case. No repairs were required. The leg was wrapped with an PAWEL bandage. ESTIMATED BLOOD LOSS: 50 ml SPECIMENS: None COMPLICATIONS: None PREOPERATIVE DIAGNOSIS: coronary artery disease POSTOPERATIVE DIAGNOSIS: coronary artery disease SIGNATURE: Darwin Rojo PA-C PATIENT NAME: Concha Woodward DATE: January 10, 2020 TIME: 8:33 AM PAGER/CONTACT #: [phone] Normal [facility] Basic Panelon 01-10-2020 Creatinine [Mass/Vol] 1.55 mg/dL High 0.51-0.95 [facility] Comment on above: Result Comment: Use of this assay is not recommended for patients undergoing treatment with phenindione, due to the potential for falsely depressed results. Performed By: #### P BNP #### [address] [address] Glucose [Mass/Vol] 122 mg/dL High 70-99 [facility] Comment on above: Performed By: #### P BNP #### [address] [address] Anion gap [Moles/Vol] 13 mmol/L Normal 8-16 [facility] Comment on above: Performed By: #### P BNP #### [address] [address] Calcium [Mass/Vol] 8.0 mg/dL Low 8.5-10.1 [facility] Comment on above: Performed By: #### P BNP #### [address] [address] CO2 [Moles/Vol] 19 mmol/L Low 21-32 [facility] Comment on above: Performed By: #### P BNP #### [address] [address] Urea nitrogen [Mass/Vol] 30 mg/dL High 7-18 [facility] Comment on above: Performed By: #### P BNP #### [address], [place] [address] Chloride [Moles/Vol] 116 mmol/L High 98-107 [facility] Comment on above: Performed By: #### P BNP #### [facility] [address] [place], [place] [address] Potassium [Moles/Vol] 4.8 mmol/L Normal 3.5-5.1 [facility] Comment on above: Performed By: #### P BNP #### [facility] [address] [place] [address] Sodium [Moles/Vol] 143 mmol/L Normal 136-145 [facility] Comment on above: Performed By: #### P BNP #### [facility] [address] [place] [address] Blood Gas Arterialon 020 Base Excess -5.8 mmol/L Low -3.0-3.0 [facility] Comment on above: Performed By: #### P BNP #### [facility] [address] [place] [address] HCO3 (Bld) [Moles/Vol] 18.6 mmol/L Low 21.0-28.0 [facility] Comment on above: Performed By: #### P BNP #### [place] [address] O2% Sat Arterial 98.3 % Normal 96.0-100.0 [facility] Comment on above: Performed By: #### P BNP #### [place] [address] PCO2 Arterial 33.8 mm Hg Low 35.0-45.0 [facility] Comment on above: Performed By: #### P BNP #### [facility] [address] [place] [address] pH Arterial 7.357 Normal 7.350-7.450 [facility] Comment on above: Performed By: #### P BNP #### [place] [address] PO2 Arterial 110.0 mm Hg High 83.0-108.0 [facility] Comment on above: Performed By: #### P BNP #### [facility] [address] [place], [place] [address] FIO2 32 % Normal [facility] Comment on above: Performed By: #### P BNP #### [facility] [address] [place], [place] [address] CONSULT PROGon 01-10-2020 CONSULT PROG HNO ID: [id number] Author: Ann Echeverria Service: Endocrinology Author Type: Physician Type: Consult Progress Note Filed: 01/10/2020 4:15 PM Note Text: ENDOCRINOLOGY CONSULT PROGRESS NOTE SERVICE DATE: 01/10/2020 SERVICE TIME: 12:40 PM Subjective INTERVAL HPI: followed for DM type 2 on insulin MDI; can not tolerate metformin due to diarrhea; has CAD;s/p CABG today 01/09/2020 She was admitted there with chest pain and was found to have coronary artery disease. Patient has history of angioplasty 30 years ago. ?H/o CAD and remote FL now admitted with NSTEMI who is found to have severe MV CAD and ischemic CM with EF 30%, no CHF, in a setting of DM, HTN, HLD, CKD, remote CVA. Regarding diabetes, patient has history of type 2 diabetes for about 5 years. At home, patient takes Basaglar 9 units every morning and she takes NovoLog 8 units for breakfast and dinner and 6 units for lunch. Her A1c was 7.6 on December 25, now her A1c is 8.4. s/p CABG on IV insulin gtt per CABG protocol at 2 units/hour; on pressors; Poor po intake DIET HEART HEALTHY Recent Labs 01/10/20 1204 01/10/20 1016 01/10/20 0759 01/10/20 0410 01/09/20 1415 01/09/20 0535 GLUC -- -- -- -- 122* -- 187* -- 161* GLUCOSEMETER 111* 101* 104* < > -- < > -- < > -- < > = values in this interval not displayed. Current Facility-Administered Medications Medication Dose Route Frequency - insulin regular iv infusion 100 units in NaCl 0.9% 100 mL - AK CARD SURG NOMOGRAM 0-12 Units/hr INTRAVENOUS CONTINUOUS - insulin regular human iv bolus 10 Units 10 Units INTRAVENOUS PRN - dextrose 50% in water 25 mL syringe 12.5 g INTRAVENOUS PRN - aspirin 81 mg chewable tab(s) 81 mg ORAL DAILY - potassium chloride iv piggyback 20 mEq/100 mL 20 mEq INTRAVENOUS PRN - magnesium sulfate in water 2 g in sterile water 50 ml 2 g INTRAVENOUS PRN(NO DISPENSE) - acetaminophen 1,000 mg tab(s) (TYLENOL) 1,000 mg ORAL/FEEDING TUBE q 6 H - lactated ringers infusion 50 mL/hr INTRAVENOUS CONTINUOUS - albuterol 2.5 mg /3 mL (0.083 %) 2.5 mg (PROVENTIL) 2.5 mg INHALATION q 2 H PRN - EPINEPHrine 4 mg in NaCl 0.9% 250 mL 0.5-10 mcg/min INTRAVENOUS CONTINUOUS - atorvastatin 40 mg tab(s) (LIPITOR) 40 mg ORAL AT BEDTIME - ceFAZolin iv piggyback 2 g in D5W (iso-osmotic) 100 mL (ANCEF) 2 g INTRAVENOUS q 6 HR - ondansetron (PF) 4 mg injection (ZOFRAN) 4 mg INTRAVENOUS q 6 H PRN - calcium chloride 1 g in D5W 100 mL 1 g INTRAVENOUS PRN(NO DISPENSE) - lidocaine 4 % 1 Patch (SALONPAS) 1 Patch TRANSDERMAL DAILY And - lidocaine patch - REMOVE OTHER AT BEDTIME And - lidocaine - VERIFY PATCH OTHER q 8 H - bisacodyl 10 mg suppository (DULCOLAX) 10 mg RECTAL DAILY PRN - magnesium oxide 400 mg tab(s) (MAG-OX) 400 mg ORAL DAILY - NaCl 0.9% 250 mL iv bolus 250 mL INTRAVENOUS Post-Op PRN - polyethylene glycol 3350 17 g packet (MIRALAX, GLYCOLAX) 17 g ORAL DAILY - senna-docusate 8.6-50 mg 1 tablet (SENNA-S) 1 tablet ORAL BID - traMADol 50-100 mg tab(s) (ULTRAM) 50-100 mg ORAL q 6 H PRN - morphine 2-4 mg injection 2-4 mg INTRAVENOUS q 1 H PRN - [START ON 01/11/2020] pantoprazole DR 40 mg tab(s) (PROTONIX) 40 mg ORAL DAILY (6 AM) - insulin lispro 8 Units pen (rapid acting) (HumaLOG KWIKPEN) 8 Units SUBCUTANEOUS w MEALS Objective PHYSICAL EXAM:BP 126/57 Pulse 90 Temp (Src) 97.2 (Temporal) Resp 20 Ht 5' 3 (1.60m) Wt 176 lb 5.9 oz (80.0kg) SpO2 93% BMI 31.25 kg/(m2). O2 Therapy: Nasal Cannula, Liters: 3 NAD, extubated RRR +chest tubes abd soft No edema DATA: Diagnostic tests reviewed for today's visit: Most recent labs and imaging results. Assessment/Plan Diabetes mellitus type 2; HbA1c 8.4; on lantus 12 units daily and humalog 8 units qac tid plus correction; now on iv insulin gtt per CABG protocol 2 units per hour; poor po intake; on pressors; Add prandial humalog 8 units qac tid SHA/CKS stage III; S creat 1.55(1.26)(1.44)(1.46)( 1.8)(2.1) (baseline 1.3) ACS (acute coronary syndrome) (HCC) POA: Yes Assessment AND Plan: EF 30%; s/p CABG 01/09/2020 SIGNATURE: Ann Echeverria MD PATIENT NAME: Concha Woodward DATE: January 10, 2020 TIME: 4:15 PM PAGER: [phone] Normal [facility] Hemogramon 01-10-2020 Erythrocyte distribution width (RBC) [Ratio] 15.4 % High 11.7-14.4 [facility] Comment on above: Performed By: #### P BNP #### [place] [address] Hematocrit (Bld) [Volume fraction] 33.8 % Low 34.1-44.9 [facility] Comment on above: Performed By: #### P BNP #### [address] [address] Hemoglobin (Bld) [Mass/Vol] 11.1 g/dL Low 11.2-15.7 [facility] Comment on above: Performed By: #### P BNP #### [address] [address] MCH (RBC) [Entitic mass] 30.3 pg Normal 25.6-32.2 [facility] Comment on above: Performed By: #### P BNP #### [place] [id number] MCHC (RBC) [Mass/Vol] 32.8 % Normal 31.6-34.8 [facility] Comment on above: Performed By: #### P BNP #### [facility] [address] [place] [address] MCV (RBC) [Entitic vol] 92.3 fL Normal 79.4-94.8 [facility] Comment on above: Performed By: #### P BNP #### [facility] [address] [place] [address] Platelet mean volume (Bld) [Entitic vol] 11.6 fL Normal 9.4-12.3 [facility] Comment on above: Performed By: #### P BNP #### [place] [address] Platelets (Bld) [#/Vol] 150 thou/cmm Low 182-369 [facility] Comment on above: Performed By: #### P BNP #### [place] [address] RBC (Bld) [#/Vol] 3.66 mil/cmm Low 3.93-5.22 [facility] Comment on above: Performed By: #### P BNP #### [place] [address] RDW SD 50.5 fl High 36.4-46.3 [facility] Comment on above: Performed By: #### P BNP #### [place] [address] WBC (Bld) [#/Vol] 20.17 thou/cmm High 3.98-10.04 [facility] Comment on above: Performed By: #### P BNP #### [facility] [address] [place] [address] Magnesium Bloodon 01-10-2020 Magnesium [Mass/Vol] 2.2 mg/dL Normal 1.6-2.6 [facility] Comment on above: Performed By: #### P BNP #### [place] [address] PROGRESSon 01-10-2020 PROGRESS HNO ID: [id number] Author: Tami Marte (Pa) Service: Cardiac Surgery Author Type: Physician Security Representative Type: Progress Notes Filed: 01/10/2020 3:27 PM Note Text: CARDIOTHORACIC SURGERY POSTOP PROGRESS NOTE SERVICE DATE: 01/10/2020 SERVICE TIME: 2:56 PM Subjective S/P SURGERY: Procedure(s) (LRB): BYPASS GRAFT ARTERY CORONARY ON-PUMP FOUR CORONARY ARTERIAL GRAFTS GHOSH - LAD / /DCA, SVG - PDA / CX WITH ENDOVASCULAR VEIN HARVESTING (N/A) DATE OF SURGERY: 01/09/2020 POSTOP DAY #1 LOS: 7 INTERVAL EVENTS / PERTINENT ROS: Patient seen and examined in chair. Complains of extreme fatigue. Denies chest pain, shortness of breath, abdominal pain, or incisional pain. Objective Admission Weight: 73.3 kg (161 lb 9.6 oz) BP 126/57 Pulse 83 Temp 37 ?C (98.6 ?F) Resp 16 Ht 160 cm (5' 3) Wt 80 kg (176 lb 5.9 oz) SpO2 98% BMI 31.24 kg/m? Body surface area is 1.89 meters squared. Min/Max/Average Temperature AND Blood Pressure: Temp (24hrs), Av.6 ?C (97.9 ?F), Min:36.2 ?C (97.2 ?F), Max:37 ?C (98.6 ?F) No data recorded. No data recorded. Intake/Output Summary (Last 24 hours) at 01/10/2020 1456 Last data filed at 01/10/2020 1200 Gross per 24 hour Intake 3284 ml Output 1124 ml Net 2160 ml TELEMETRY: normal sinus rhythm PHYSICAL EXAM: General Appearance: Well developed and well nourished appearance. No acute distress. Midsternal AND SVG incision dry AND intact, without redness, drainage or edema. Lungs: clear and respiratory effort: normal Heart: regular rhythm, S1, S2 normal and pacing wires present Peripheral Vascular/Arteries: pulses intact Abdomen: soft, non-tender and bowel sounds present Neurologic/Psychiatric: Oriented to person, place, time. Normal affect. No gross focal neurologic deficits. Extremities: edema: non-pitting Lines, Drains, and Airways Line Peripheral 01/03/20 1849 Admission to Hospital Short Left Forearm 20 Gauge 6 days Peripheral 01/04/20 1618 Short Right Antecubital 20 Gauge 5 days Arterial Line/Sheath 01/09/20 0748 Left Brachial 1 day Central Line Quadruple Lumen 01/09/20 0802 Pulmonary Artery Catheter Right Neck 1 day Drain Chest Tube 01/09/20 1309 Left Pleural 32 Fr Tube #1 1 day Chest Tube 01/09/20 1309 Pleural 32 Fr Tube #2 1 day Indwelling Urinary Catheter 01/09/20 0810 Temperature Monitoring 16 Fr 1 day Airway Airway Endotracheal Tube -- days DATA: Diagnostic tests reviewed for today's visit: Chest X-RAY: -Low lung volumes with left basilar atelectasis versus consolidation and suspect small left pleural effusion, ?essentially unchanged. -No new focal airspace consolidation or pneumothorax. -Interval removal of endotracheal and enteric tubes. Recent Labs 01/10/2040901/09/20141401/09/20 1344 01/09/20 0535 01/08/20 0435 RBC 3.66* 4.58 -- -- 3.39* 3.45* WBC 20.17* 30.65* -- -- 12.23* 9.47 HB 11.1* 13.9 -- -- 10.4* 10.6* HCT 33.8* 42.3 33* < > 31.4* 32.4* PLT 150* 182 -- -- 291 298 INR 1.03 1.09 -- -- -- -- APTT -- 29.2 -- -- -- 54.0* NA 143 144 143 < > 139 141 K 4.8 3.5 3.6 < > 4.0 3.7 CHLOR 116* 115* -- -- 113* 113* CO2 19* 20* -- -- 20* 22 BUN 30* 28* -- -- 33* 35* CREAT 1.55* 1.26* -- -- 1.19* 1.44* GLUC 122* 187* -- -- 161* 134* CA 8.0* 8.5 -- -- 8.8 8.8 MG 2.2 2.6 -- -- -- -- ANION 13 13 -- -- 10 10 < > = values in this interval not displayed. Recent Labs 01/10/2040901/09/20141401/09/20 1344 01/09/20 1302 01/09/20 1203 PH 7.357 7.343* 7.311* 7.309* 7.373 PCO2 33.8* 33.9* -- -- -- PO2 110.0* 78.9* 87.0 314.0* 415.0* BE -5.8* -6.5* -- -- -- HCO3 -- -- 16.7* 18.2* 23.5 Current Facility-Administered Medications Medication Dose Route Frequency Provider Last Rate Last Dose - [START ON 01/11/2020] pantoprazole DR 40 mg tab(s) (PROTONIX) 40 mg ORAL DAILY (6 AM) Tami (Pa) Rosanna - insulin regular iv infusion 100 units in NaCl 0.9% 100 mL - AK CARD SURG NOMOGRAM 0-12 Units/hr INTRAVENOUS CONTINUOUS Tami (Pa) Rosanna 2 mL/hr at 01/10/20 0804 2 Units/hr at 01/10/20 0804 - insulin regular human iv bolus 10 Units 10 Units INTRAVENOUS PRN Tami (Pa) Rosanna - dextrose 50% in water 25 mL syringe 12.5 g INTRAVENOUS PRN Tami (Pa) Rosanna - aspirin 81 mg chewable tab(s) 81 mg ORAL DAILY Tami (Pa) Rosanna 81 mg at 01/10/20 0940 - potassium chloride iv piggyback 20 mEq/100 mL 20 mEq INTRAVENOUS PRN Tami (Pa) Rosanna 100 mL/hr at 01/09/20 1732 20 mEq at 01/09/20 1732 - magnesium sulfate in water 2 g in sterile water 50 ml 2 g INTRAVENOUS PRN(NO DISPENSE) Tami (Pa) Rosanna - acetaminophen 1,000 mg tab(s) (TYLENOL) 1,000 mg ORAL/FEEDING TUBE q 6 H Tami (Pa) Rosanna 1,000 mg at 01/10/20 1222 - lactated ringers infusion 50 mL/hr INTRAVENOUS CONTINUOUS Tami (Pa) Rosanna 50 mL/hr at 01/10/20 0400 50 mL/hr at 01/10/20 0400 - albuterol 2.5 mg /3 mL (0.083 %) 2.5 mg (PROVENTIL) 2.5 mg INHALATION q 2 H PRN Tami (Pa) Rosanna - EPINEPHrine 4 mg in NaCl 0.9% 250 mL 0.5-10 mcg/min INTRAVENOUS CONTINUOUS Tami (Pa) Rosanna 1.88 mL/hr at 01/10/20 1237 0.5 mcg/min at 01/10/20 1237 - atorvastatin 40 mg tab(s) (LIPITOR) 40 mg ORAL AT BEDTIME Tami (Pa) Rosanna - ceFAZolin iv piggyback 2 g in D5W (iso-osmotic) 100 mL (ANCEF) 2 g INTRAVENOUS q 6 HR Tami (Pa) Rosanna 200 mL/hr at 01/10/20 1226 2 g at 01/10/20 1226 - ondansetron (PF) 4 mg injection (ZOFRAN) 4 mg INTRAVENOUS q 6 H PRN Tami (Pa) Rosanna 4 mg at 01/09/20 2320 - calcium chloride 1 g in D5W 100 mL 1 g INTRAVENOUS PRN(NO DISPENSE) Tami (Pa) Rosanna - lidocaine 4 % 1 Patch (SALONPAS) 1 Patch TRANSDERMAL DAILY Taim (Pa) Rosanna 1 Patch at 01/10/20 1218 And - lidocaine patch - REMOVE OTHER AT BEDTIME Tami (Pa) Rosanna And - lidocaine - VERIFY PATCH OTHER q 8 H Tami (Pa) Rosanna - bisacodyl 10 mg suppository (DULCOLAX) 10 mg RECTAL DAILY PRN Tami (Pa) Rosanna - magnesium oxide 400 mg tab(s) (MAG-OX) 400 mg ORAL DAILY Tami (Pa) Rosanna 400 mg at 01/10/20 1218 - NaCl 0.9% 250 mL iv bolus 250 mL INTRAVENOUS Post-Op PRN Tami (Pa) Rosanna - polyethylene glycol 3350 17 g packet (MIRALAX, GLYCOLAX) 17 g ORAL DAILY Tami (Pa) Rosanna - senna-docusate 8.6-50 mg 1 tablet (SENNA-S) 1 tablet ORAL BID Tami (Pa) Rosanna 1 tablet at 01/10/20 0940 - traMADol 50-100 mg tab(s) (ULTRAM) 50-100 mg ORAL q 6 H PRN Tami (Pa) Rosanna 50 mg at 01/10/20 0940 - morphine 2-4 mg injection 2-4 mg INTRAVENOUS q 1 H PRN Tami (Pa) Rosanna 4 mg at 01/10/20 0953 Assessment/Plan NSTEMI s/p CABG x 4 (ghosh-lad sequenced with diag; svg-om, rpl; evh) -POD#1 -Continue ASA 81, statin -Hold BB until off epi -wean epi at 1cc every 4 hours -maintain chest tubes, arterial line, central line, and park for close monitoring while on pressors and for strict IANDOs -continue post-op abx -start bowel regimen -pain control per ERAS -ambulate as tolerated -remove SWAN when epi off -Plavix for ACS in future Anticipated post-op respiratory insufficiency -currently on 3L NC; continue to wean -encourage IS, deep breathing and cough CKDAKI + ATN -Cr rising -Nephro on consult; appreciate recs DM2 -Endo on consult -Appreciate recs Acute CHF -likely 2/2 ICM -continue to wean epi -will need diuresis HTN -Defer treatment until hemodynamically stable HLD -continue statin therapy DVT ppx -ASA, petar hose, SCDs -lovenox when bleeding risk decreases GI ppx -Protonix Dispo -remain in CVICU Planned in collaboration with Dr. Rivera and CVICU Tests/Labs Ordered: 1. Chest X-ray 2. BMP 3. CBC SIGNATURE: Tami Marte PA-C PATIENT NAME: Concha Woodward DATE: January 10, 2020 TIME: 2:56 PM PAGER/CONTACT #:[phone] [phone] Normal [facility] PROGRESS HNO ID: [id number] Author: Anson Beaver Service: Critical Care Author Type: Physician Type: Progress Notes Filed: 01/10/2020 11:48 AM Note Text: S/p extubation y'day. Pain is 7/10 and also has some back pain. No nausea or vomiting. No other complaints. Full ROS with the pt and RN done. On exam: 120/ 52, 89, 19, 37, 99% on 3 L NC Right IJ [place] Chest tubes with no leak Right brachial A-line ? NAD, elderly woman; up in chair; slightly drowsy O times 3, no FND RRR Mostly CTA B Soft, ND, BS present No pedal edema; right leg with VG site has dressing ? CO/ CI - does not seem reliable mPAP 20 ? IO: 3.2/ 980 cc Data: 7.35/ 33/ 110 Na 143, K 4.8, Cl 116, HCO3 19, BUN 30, Cr 1.5, Glu 122 Hb 11.1, WCC 20, Plt 150 ? CXR reviewed and shows right IJ [place], chest tubes in place; left small effusion/ atelectasis ? CT chest: Thoracic aorta is within normal limits. Widely scattered tiny nodules measuring 4 mm or less. ?If clinically indicated, follow-up in one year could be considered. Lobular contour to the kidneys making it difficult to exclude mass lesion. ?Ultrasound is recommended. ?There is a punctate nonobstructive right renal calculus. ? LHC: Multivessel CAD ? ECHO: Moderate segmental systolic dysfunction; EF 30%, mildly enlarged LA, 2+ MR, diastolic function is indeterminate ? IMPRESSION: Ms Woodward is an 84 year old white woman with PMH of [place]/ CAD, DM-II, hx of CVA, HTN, diverticulosis, gout, and HL had initially presented to [facility] for chest pain, found to have STEMI. She was then transferred here for further care. She was found to have multi-vessel CAD and so underwent CABG today. ? 1. Acute anticipated post-op respiratory insufficiency; s/p extubation and improving 2. S/p CABG * 4; ?GHOSH side to side to diag and end to side to LAD in sequential fashion, SVG side to side to OM and end to side to posterolateral branch of RCA in sequential fashion; POD # 1 3. Acute systolic heart failure, likely ischemic; EF 30% 4. Multivessel CAD/ STEMI at presentation 5. DM-II 6. Left basilar atelectasis 7. Medical problems as above 8. Tramadol allergy ? PLAN: - pain control per primary team - IS Q1wean - wean epi as tolerated - BS per endo - chest tubes per Dr Rievra - will follow with you ? Code status: full ? PROGNOSIS: Guarded ? Patient/Family Updated: d/w pt and family at the bedside ? Discussed with RN. All documentation from previous visit of 01/09/2020 was copied and pasted, documentation has been reviewed and edited as necessary for today's visit. ? SIGNATURE: Anson Beaver MD [facility] PAGER:[phone] ICU Checklist Last Documented/Reviewed time: 01/10/2020 8:49 AM ------ - ICU Delirium Status: CAM Negative - no action required Restraint Status: None ICU Mobility-Pt Has Been Out of Bed: Yes Line Status: Arterial line, Central multi-lumen catheter Arterial Line Status: Reason to maintain Arterial Line Reason to Maintain: Vasoactive medication titration Central Line Status: Reason to maintain Central Line Reason to Maintain: Hemodynamic instability, Vasoactive meds Ventilator: None Park Status: Present, will discontinue today GI/Stress Ulcer Prophylaxis: PPI Nutrition is at Goal: Advancing to goal VTE Prophylaxis: Chemoprophylaxis: No chemoprophylaxis Mechanical Prophylaxis: Knee high SCD No Chemoprophylaxis Reason: Other - Specify (Comment: Post-op) Pressure Injury Status: None ICU plan of care visit at bedside in last 24 hours: Yes, Provider, RN, Patient/ designee ICU Disposition- Is Patient Clinically Ready to Transfer to [facility] or SDU?: No Discharge Planning: Home Normal [facility] PROGRESS HNO ID: [id number] Author: Gatito Godinez Service: Nephrology Author Type: Physician Type: Progress Notes Filed: 01/10/2020 2:09 PM Note Text: [facility] Progress Note Subjective/ INTERVAL HISTORY: We are seeing the patient for issues with SHA and ?New onset CHF Cr is?slightly up noted (baseline ~ 1.4) SOB resolved No edema S/p CABG Has back pain when seen today All labs / data/ chart and interval events are noted BP has been stable No issues with urine output Lytes are better No s/o CHF Responding to current rx at this time No other new issues No change in the PFSH at this time ROS is (-) unless mentioned ? Objective/ 01/10/20 0600 01/10/20 0700 01/10/20 0730 01/10/20 0756 BP: Pulse: 91 95 90 89 Resp: 18 19 18 19 Temp: 37 ?C (98.6 ?F) 37 ?C (98.6 ?F) TempSrc: SpO2: 99% 99% 99% 99% Weight: Height: 24HR INTAKE/OUTPUT: Intake/Output Summary (Last 24 hours) at 01/10/2020 0832 Last data filed at 01/10/2020 0800 Gross per 24 hour Intake 3284 ml Output 1060 ml Net 2224 ml Constitutional: extubated, in chair, awake, alert, NAD HEAD, EYES, ENT: ?No pallor. ?No cyanosis. ?No icterus. ?Mucous membranes of mouth ?were moist. NECK: ?Otherwise supple. ?Hard for me to see a jugular vein distention elevation. ?LUNGS: ?Clear to auscultation. ?No rales. CARDIOVASCULAR: ?S1, S2. ?No rubs or gallops.CT are noted ABDOMEN: ?Soft, obese, nontender. ?Bowel sounds are heard. EXTREMITIES: ?No peripheral edema. SKIN: ?Otherwise warm and moist. PSYCH: ?Normal affect. ?Does not appear to be anxious, depressed, or agitated. with park noted Good urine Current Facility-Administered Medications Medication Dose Route Frequency - insulin regular iv infusion 100 units in NaCl 0.9% 100 mL - AK CARD SURG NOMOGRAM 0-12 Units/hr INTRAVENOUS CONTINUOUS - insulin regular human iv bolus 10 Units 10 Units INTRAVENOUS PRN - dextrose 50% in water 25 mL syringe 12.5 g INTRAVENOUS PRN - aspirin 81 mg chewable tab(s) 81 mg ORAL DAILY - potassium chloride iv piggyback 20 mEq/100 mL 20 mEq INTRAVENOUS PRN - magnesium sulfate in water 2 g in sterile water 50 ml 2 g INTRAVENOUS PRN(NO DISPENSE) - acetaminophen 1,000 mg tab(s) (TYLENOL) 1,000 mg ORAL/FEEDING TUBE q 6 H - lactated ringers infusion 50 mL/hr INTRAVENOUS CONTINUOUS - albuterol 2.5 mg /3 mL (0.083 %) 2.5 mg (PROVENTIL) 2.5 mg INHALATION q 2 H PRN - EPINEPHrine 4 mg in NaCl 0.9% 250 mL 0.5-10 mcg/min INTRAVENOUS CONTINUOUS - PHENYLephrine iv infusion 10 mg in NaCl 0.9% 250 mL (FERNANDA-SYNEPHRINE) 0-100 mcg/min INTRAVENOUS CONTINUOUS - ceFAZolin iv piggyback 2 g in D5W (iso-osmotic) 100 mL (ANCEF) 2 g INTRAVENOUS q 6 HR - pantoprazole 40 mg injection (PROTONIX) 40 mg INTRAVENOUS DAILY (6 AM) - ondansetron (PF) 4 mg injection (ZOFRAN) 4 mg INTRAVENOUS q 6 H PRN - calcium chloride 1 g in D5W 100 mL 1 g INTRAVENOUS PRN(NO DISPENSE) - midazolam (PF) 2 mg injection (VERSED) 2 mg INTRAVENOUS q 6 H PRN - lidocaine 4 % 1 Patch (SALONPAS) 1 Patch TRANSDERMAL DAILY And - lidocaine patch - REMOVE OTHER AT BEDTIME And - lidocaine - VERIFY PATCH OTHER q 8 H - bisacodyl 10 mg suppository (DULCOLAX) 10 mg RECTAL DAILY PRN - magnesium oxide 400 mg tab(s) (MAG-OX) 400 mg ORAL DAILY - NaCl 0.9% 250 mL iv bolus 250 mL INTRAVENOUS Post-Op PRN - polyethylene glycol 3350 17 g packet (MIRALAX, GLYCOLAX) 17 g ORAL DAILY - senna-docusate 8.6-50 mg 1 tablet (SENNA-S) 1 tablet ORAL BID - traMADol 50-100 mg tab(s) (ULTRAM) 50-100 mg ORAL q 6 H PRN - morphine 2-4 mg injection 2-4 mg INTRAVENOUS q 1 H PRN - dexmedetomidine 400 mcg in NaCl 0.9% 100 mL (PRECEDEX) 0.2-0.7 mcg/kg/hr INTRAVENOUS CONTINUOUS Data/ CBC, Coags, BMP, Mg, Phos Recent Labs 01/10/20 0410 01/09/20 1415 01/09/20 1344 01/09/20 0535 01/08/20 0435 WBC 20.17* 30.65* -- -- 12.23* 9.47 HB 11.1* 13.9 -- -- 10.4* 10.6* HCT 33.8* 42.3 33* < > 31.4* 32.4* PLT 150* 182 -- -- 291 298 INR 1.03 1.09 -- -- -- -- APTT -- 29.2 -- -- -- 54.0* NA 143 144 143 < > 139 141 K 4.8 3.5 3.6 < > 4.0 3.7 CHLOR 116* 115* -- -- 113* 113* CO2 19* 20* -- -- 20* 22 BUN 30* 28* -- -- 33* 35* CREAT 1.55* 1.26* -- -- 1.19* 1.44* GLUC 122* 187* -- -- 161* 134* CA 8.0* 8.5 -- -- 8.8 8.8 MG 2.2 2.6 -- -- -- -- < > = values in this interval not displayed. Assessment/ 84 year old female who presents with ? 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 Chest 2012; 141:7S-47S Tomi RA, et al. JACC 2017; 70: 252-289 Performed By: #### H A1C #### [facility] [address] [place], [place] [address] PT Coag (PPP) [Time] 11.1 s Normal 9.7-13.0 [facility] Comment on above: Performed By: #### H A1C #### [facility] [address] [place], [place] [address] XR CHEST 1V FRONTALon 2019 XR CHEST 1V FRONTAL * * *Final Report* * * DATE OF EXAM: Jan 10 2020 5:49AM [id number] [id number] - XR CHEST 1V FRONTAL / PROCEDURE REASON: Post-operative / post-procedure assessment, asymptomatic * * * * Physician Interpretation * * * * EXAM TITLE: AP/PA CHEST X RAY COMPARISON: 01/09/2020 CLINICAL HISTORY: Post-operative / post-procedure assessment, asymptomatic ENCOUNTER: Not applicable MQ: [id number] RESULT: Lines, tubes, and devices: Examination limited due to overlying EKG leads. Interval removal of endotracheal and enteric tubes. Again demonstrated is right internal jugular central venous sheath with associated [place]-Veto catheter with catheter tip overlying the region of the main pulmonary artery, unchanged. Little interval change regarding left-sided thoracostomy tube with tip overlying the left mid to upper lung zone. Mediastinal drain again noted. Lungs and pleura: Likely small left pleural effusion with associated left basilar atelectasis versus consolidation, unchanged. No discrete right-sided effusion or pneumothorax. Again noted is linear atelectasis at right upper lung zone. No new focal airspace consolidation. Cardiomediastinal silhouette: Cardiac silhouette unchanged. Status post median sternotomy. Postsurgical changes from coronary artery bypass graft again noted. Other: Osseous structures and soft tissues grossly intact. IMPRESSION: Low lung volumes with left basilar atelectasis versus consolidation and suspect small left pleural effusion, essentially unchanged. No new focal airspace consolidation or pneumothorax. Interval removal of endotracheal and enteric tubes. Little interval change regarding additional support lines and catheters, as described. Web Developer: KURT Transcribe Date/Time: Jan 10 2020 7:40A Dictated by : JEFFY VAUGHN MD This examination was interpreted and the report reviewed and electronically signed by: JEFFY VAUGHN MD on Jan 10 2020 7:44AM EST Normal [facility] ACT Arterial Panel (i-STAT)o n 01-09-2020 Kaolin ACT ( i-STAT) 125 sec Normal 74-137 [facility] Comment on above: Performed By: #### L IPD2 #### [facility] [address] [place] [id number] ANES PREOPon 01-09-2020 ANES PREOP HNO ID: [id number] Author: Steven Christiansen Service: Anesthesiology Author Type: Physician Type: Anesthesia PreOp Filed: 01/09/2020 9:20 AM Note Text: ANESTHESIOLOGY DAY OF SURGERY NOTE SERVICE DATE: 01/09/2020 SERVICE TIME: 9:20 AM : 1935 Procedure(s) (LRB): BYPASS GRAFT ARTERY CORONARY ON-PUMP THREE CORONARY ARTERIAL GRAFTS (N/A) Surgeon(s): Yanet Rivera Estimated body mass index is 28.11 kg/m? as calculated from the following: Height as of this encounter: 160 cm (5' 3). Weight as of this encounter: 72 kg (158 lb 11.2 oz). Most recent hematocrit and potassium results: Hematocrit 31.4 01/09/2020 Potassium 4.0 01/09/2020 ANES DOS/PREOP NOTE: Vitals: 01/09/20 0107 01/09/20 0541 01/09/20 0600 01/09/20 0703 BP: 130/58 162/70 126/57 Pulse: 92 100 80 Resp: 16 16 16 Temp: 37.4 ?C (99.3 ?F) 37.1 ?C (98.8 ?F) 36.9 ?C (98.4 ?F) TempSrc: Oral Oral Temporal Artery SpO2: 98% 96% 96% Weight: 72 kg (158 lb 11.2 oz) Height: ACTIVE PROBLEM LIST Hypertension Goal Bp (Blood Pressure) < 150/90 Pure Hypercholesterolemia Osteopenia Benign Neoplasm of Cerebral Meninges (Hcc) History of Gout Type 2 Diabetes Mellitus With Stage 3 Chronic Kidney Disease, With Long-Term Current Use of Insulin (Hcc) History of Cva (Cerebrovascular Accident) Hyperuricemia Diarrhea, Unspecified Acs (Acute Coronary Syndrome) (Hcc) PAST MEDICAL HISTORY Diagnosis Date - Abdominal [...] diabetes mellitus without mention of complication, uncontrolled - Unspecified cardiovascular disease - Unspecified essential hypertension - Urgency of urination 2008 PAST SURGICAL HISTORY Procedure Laterality Date - ANGIOPLASTY 1988 - COLONOSCOP W/ OR W/O [facility] SPEC 08/29/07 - LAPAROSCOPIC CHOLEYCYSTECTOMY Cholecystectomy, lap - LEFT HEART CATH,CUTDOWN 1991 - PAST SURGICAL HISTORY OF Tubal FAMILY HISTORY Problem Relation Age of Onset - Heart Mother mi - Heart Father heart disease - Diabetes Maternal Uncle - Cancer Brother Mouth (non smoker) Social History: Social History Tobacco Use - Smoking status: Never Smoker - Smokeless tobacco: Never Used Substance Use Topics - Alcohol use: No - Drug use: No No current facility-administered medications on file prior to encounter. Current Outpatient Medications on File Prior to Encounter Medication Sig - white petrolatum-mineral oil (SYSTANE NIGHTTIME) 94-3 % ophthalmic ointment Use 1 application in both eyes daily at bedtime. - cholecalciferol, Vitamin D3, (VITAMIN D3) 1,250 mcg (50,000 unit) cap capsule Take 1 capsule by mouth two times a week. (ONE CAPSULE) FOR VITAMIN D DEFICIENCY - amoxicillin (AMOXIL) 875 mg tablet Take 1 tablet by mouth twice daily for 10 days. - insulin glargine (BASAGLAR KWIKPEN U-100 INSULIN) 100 unit/mL (3 mL) inpn Inject 11 Units subcutaneously every morning. - amLODIPine (NORVASC) 10 mg tablet Take 1 tablet by mouth once daily. - lisinopril (ZESTRIL, PRINIVIL) 40 mg tablet Take 1 tablet by mouth once daily. - carvedilol (COREG) 6.25 mg tablet Take 1 tablet by mouth twice daily with meals. - allopurinol (ZYLOPRIM) 100 mg tablet Take 1 tablet by mouth once daily. - clopidogrel (PLAVIX) 75 mg tablet Take 1 tablet by mouth once daily. - insulin aspart U-100 (NOVOLOG FLEXPEN U-100 INSULIN) 100 unit/mL (3 mL) inpn Take 8 units breakfast, 6 units lunch, and 8 units dinner - RESTASIS 0.05 % ophthalmic emulsion Use 1 Drop in both eyes twice daily. - [place]-3 Fatty Acids 1,250 mg cap Take 1 capsule by mouth once daily. - calcium carbonate 600 mg-cholecalciferol 400 units (CALCIUM 600 + D) 600 mg(1,500mg) -400 unit tab Take 1 tablet by mouth once daily. - [DISCONTINUED] blood sugar diagnostic(ASCENSIA CONTOUR TEST STRIPS) Test Blood sugar once daily 250.00, non insulin dep Current Facility-Administered Medications Medication Dose Route Frequency Provider Last Rate Last Dose - NaCl 0.9% irrigation solution X (OR/PROCEDURE) PRN Yanet Rivera 3,000 mL at 01/09/20 0854 - NaCl 0.9% iv infusion X (OR/PROCEDURE) CONTINUOUS Yanet Rivera 1,000 mL at 01/09/20 0854 - [MAR Hold due to Transfer] white petrolatum-mineral oil opthalmic ointment (Soothe Lubricant Eye Night Time Ointment) BOTH EYES AT BEDTIME Melisa Reza CNP - [MAR Hold due to Transfer] metoprolol tartrate (short acting) 25 mg tab(s) (LOPRESSOR) 25 mg ORAL q 12 H Melisa Reza CNP 25 mg at 01/09/20 0542 - [MAR Hold due to Transfer] hydrALAZINE 10 mg injection (APRESOLINE) 10 mg INTRAVENOUS q 6 H PRN Melisa Harkins) THIAGO Reza - [MAR Hold due to Transfer] hydrOXYzine HCl 12.5 mg tab(s) (ATARAX) 12.5 mg ORAL q 8 H PRN Chandan Tavarez 12.5 mg at 01/08/20 2225 - [MAR Hold due to Transfer] mupirocin 2 % ointment (BACTROBAN) TOPICAL TID Patience Adler - [MAR Hold due to Transfer] folic acid 1 mg tab(s) 1 mg ORAL DAILY Patience Adler 1 mg at 01/08/20903 - [MAR Hold due to Transfer] ferrous sulfate 325 mg tab(s) 325 mg ORAL BID w MEALS Patience Adler 325 mg at 01/08/201827 - [MAR Hold due to Transfer] senna-docusate 8.6-50 mg 1 tablet (SENNA-S) 1 tablet ORAL BID Patience Adler - [MAR Hold due to Transfer] ascorbic acid (vitamin C) 500 mg tab(s) (VITAMIN C) 500 mg ORAL BID Patience Adler 500 mg at 01/08/202101 - [MAR Hold due to Transfer] insulin lispro 0-10 Units pen (rapid acting) (HumaLOG KWIKPEN) 0-10 Units SUBCUTANEOUS w MEALS Patience Adler 2 Units at 01/08/201827 - [MAR Hold due to Transfer] insulin glargine 12 Units pen (long acting) (LANTUS SOLOSTAR, BASAGLAR KWIKPEN) 12 Units SUBCUTANEOUS DAILY (8 AM) Patience Adler 12 Units at 01/08/20904 - [MAR Hold due to Transfer] insulin lispro 8 Units pen (rapid acting) (HumaLOG KWIKPEN) 8 Units SUBCUTANEOUS w MEALS Patience Adler 8 Units at 01/08/201828 - [MAR Hold due to Transfer] albuterol 2.5 mg /3 mL (0.083 %) 2.5 mg (PROVENTIL) 2.5 mg INHALATION q 4 H PRN Patience Adler - [MAR Hold due to Transfer] amLODIPine 10 mg tab(s) (NORVASC) 10 mg ORAL DAILY Patience Pearsonn 10 mg at 01/08/20903 - [MAR Hold due to Transfer] allopurinol 100 mg tab(s) (ZYLOPRIM) 100 mg ORAL DAILY Patience Adler 100 mg at 01/08/20903 - [MAR Hold due to Transfer] aspirin 81 mg chewable tab(s) 81 mg ORAL DAILY Patience Adler 81 mg at 01/09/20 0542 - [MAR Hold due to Transfer] nitroglycerin sublingual 0.4 mg tab(s) (NITROQUICK) 0.4 mg SUBLINGUAL PRN Patience (Res) Kann - [MAR Hold due to Transfer] potassium chloride ER 20-40 mEq tab(s) (K-DUR, KLOR-CON) 20-40 mEq ORAL/FEEDING TUBE PRN Patience (Res) Kann Or - [MAR Hold due to Transfer] potassium chloride iv piggyback 20 mEq/100 mL 20 mEq INTRAVENOUS PRN Patience (Res) Kann - [MAR Hold due to Transfer] magnesium sulfate in water 2 g in sterile water 50 ml 2 g INTRAVENOUS PRN Patience (Res) Kann - [MAR Hold due to Transfer] sodium phosphate 45 mmol in NaCl 0.9% 250 mL 45 mmol INTRAVENOUS PRN Patience (Res) Kann - [MAR Hold due to Transfer] calcium gluconate 4 g in NaCl 0.9% 250 mL 4 g INTRAVENOUS PRN Patience (Res) Kann - [MAR Hold due to Transfer] heparin RATE CHANGE bolus 1,000-4,000 Units for subtherapeutic aptt results 1,000-4,000 Units INTRAVENOUS PRN Melisa (News Wire Photo Operator) THIAGO Reza 2,200 Units at 01/04/20 0144 - [MAR Hold due to Transfer] dextrose 40 % 15 g 15 g ORAL PRN Patience (Res) Kann Or - [MAR Hold due to Transfer] glucagon 1 mg injection (GLUCAGEN) 1 mg INTRAMUSCULAR PRN Patience (Res) Kann Or - [MAR Hold due to Transfer] dextrose 50% in water 25 mL syringe 12.5 g INTRAVENOUS PRN Patience (Res) Kann - [MAR Hold due to Transfer] NaCl 0.9% 3-5 mL 3-5 mL INTRAVENOUS q 12 H Patience (Res) Kann 3 mL at 01/08/202105 - [MAR Hold due to Transfer] atorvastatin 10 mg tab(s) (LIPITOR) 10 mg ORAL AT BEDTIME Patience (Res) Kann 10 mg at 01/08/202101 - [MAR Hold due to Transfer] ezetimibe 10 mg tab(s) (ZETIA) 10 mg ORAL DAILY Patience (Res) Kann 10 mg at 01/08/20 0904 Allergies: ALLERGIES Allergen Reactions - Bactrim [Sulfametho* Vomiting - Codeine Vomiting - Prednisone Vomiting - Statins [Statins-Hm* Intolerance - Ultram [Tramadol Hc* Vomiting DOS EXAM: Adequate NPO status: Yes Anesthetic risks, benefits, alternatives, personnel and consent discussed: Yes Patient agrees to proceed: Yes Previous Anesthesia: No history of adverse event. Airway Assessment: MP 2; Neck ROM: Full ROM without neurologic symptoms; Airway Evaluation: No significant abnormalities Symptoms of Sleep Apnea: None Dentition: Teeth intact Additional Physical Exam: Lungs: Patient health status unchanged since recent history and physical. See history and physical for exam findings. Cardiac: Patient health status unchanged since recent history and physical. See history and physical for exam findings. Additional Pertinent Findings: N/A Blood Products: Not anticipated for this procedure. Anesthetic Plan: General, Standard ASA Monitors, MAYELA, CVP, SWG, A line Pain Management Plan: Parenteral or Oral ASA Class: 4 Other Medical Problems: None Chronic Beta Shravan medication administered within 24 hours: N/A I have interviewed and examined the patient. I have reviewed the medical record and/or the pre-anesthesia evaluation, pertinent labs, and test results. Significant changes in the patient's condition since the History and Physical, not otherwise documented in primary service progress notes: No This contains updated information obtained within 48 hours of Surgery/Procedure. SIGNATURE: Steven Christiansen MD PATIENT NAME: Concha Woodward DATE: January 09, 2020 TIME: 9:20 AM CSN: [id number] Normal [facility] Activated PTTon 01-09-2020 aPTT Coag (Bld) [Time] 29.2 s Normal 23.0-32.4 [facility] Comment on above: Result Comment: Unfr actionated [...] laboratory APTT reagent in use throughout the [facility]. Performed By: #### P BNP #### [place] [address] Basic Panelon 01-09-2020 Creatinine [Mass/Vol] 1.26 mg/dL High 0.51-0.95 [facility] Comment on above: Result Comment: Use of this assay is not recommended for patients undergoing treatment with phenindione, due to the potential for falsely depressed results. Performed By: #### P BNP #### [facility] [address] [place] [address] Glucose [Mass/Vol] 187 mg/dL High 70-99 [facility] Comment on above: Performed By: #### P BNP #### [facility] [address] [place] [address] Anion gap [Moles/Vol] 13 mmol/L Normal 8-16 [facility] Comment on above: Performed By: #### P BNP #### [place] [address] Calcium [Mass/Vol] 8.5 mg/dL Normal 8.5-10.1 [facility] Comment on above: Performed By: #### P BNP #### [place] [address] CO2 [Moles/Vol] 20 mmol/L Low 21-32 [facility] Comment on above: Performed By: #### P BNP #### [facility] [address] [place] [address] Performed By: #### L IPD2 #### [place] [address] Urea nitrogen [Mass/Vol] 28 mg/dL High 7-18 [facility] Comment on above: Performed By: #### P BNP #### [place] [address] Chloride [Moles/Vol] 115 mmol/L High 98-107 [facility] Comment on above: Performed By: #### P BNP #### [place] [address] Potassium [Moles/Vol] 3.5 mmol/L Normal 3.5-5.1 [facility] Comment on above: Performed By: #### P BNP #### [place] [address] Sodium [Moles/Vol] 144 mmol/L Normal 136-145 [facility] Comment on above: Performed By: #### P BNP #### [facility] [address] [place], [place] [address] Creatinine [Mass/Vol] 1.19 mg/dL High 0.51-0.95 [facility] Comment on above: Result Comment: Use of this assay is not recommended for patients undergoing treatment with phenindione, due to the potential for falsely depressed results. Performed By: #### L IPD2 #### [facility] [address] [place], [place] [address] Anion gap [Moles/Vol] 10 mmol/L Normal 8-16 [facility] Comment on above: Performed By: #### L IPD2 #### [address] [address] Calcium [Mass/Vol] 8.8 mg/dL Normal 8.5-10.1 [facility] Comment on above: Performed By: #### L IPD2 #### [address] [address] Glucose [Mass/Vol] 161 mg/dL High 70-99 [facility] Comment on above: Performed By: #### L IPD2 #### [facility] [address] [place] [address] Urea nitrogen [Mass/Vol] 33 mg/dL High 7-18 [facility] Comment on above: Performed By: #### L IPD2 #### [address] [address] Chloride [Moles/Vol] 113 mmol/L High 98-107 [facility] Comment on above: Performed By: #### L IPD2 #### [address] [address] Potassium [Moles/Vol] 4.0 mmol/L Normal 3.5-5.1 [facility] Comment on above: Performed By: #### L IPD2 #### [facility] [address] [place], [place] [address] Sodium [Moles/Vol] 139 mmol/L Normal 136-145 [facility] Comment on above: Performed By: #### L IPD2 #### [address] [address] Blood Gas Arterialon 020 Base Excess -6.5 mmol/L Low -3.0-3.0 [facility] Comment on above: Performed By: #### L IPD2 #### [facility] [address] [place] [address] HCO3 (Bld) [Moles/Vol] 18.2 mmol/L Low 21.0-28.0 [facility] Comment on above: Performed By: #### L IPD2 #### [facility] [address] [place] [address] O2% Sat Arterial 96.4 % Normal 96.0-100.0 [facility] Comment on above: Performed By: #### L IPD2 #### [place] [address] PCO2 Arterial 33.9 mm Hg Low 35.0-45.0 [facility] Comment on above: Performed By: #### L IPD2 #### [place] [address] pH Arterial 7.343 Low 7.350-7.450 [facility] Comment on above: Performed By: #### L IPD2 #### [place] [address] PO2 Arterial 78.9 mm Hg Low 83.0-108.0 [facility] Comment on above: Performed By: #### L IPD2 #### [place] [address] FIO2 50 % Normal [facility] Comment on above: Performed By: #### L IPD2 #### [place] [address] CG8 Arterial Panel (i-STAT)o n 01-09-2020 Base Excess (i-STAT) -1.0 mmol/L Normal -2.0 to 3.0 [facility] Comment on above: Performed By: #### L IPD2 #### [place] [address] Glucose [Mass/Vol] 194 mg/dL High 70-99 [facility] Comment on above: Performed By: #### L IPD2 #### [facility] [address] [place], [place] [address] HCO3 (Bld) [Moles/Vol] 24.4 mmol/L Normal 22.0-26.0 [facility] Comment on above: Performed By: #### L IPD2 #### [facility] [address] [place] [address] Hematocrit (Bld) [Volume fraction] 20 %PCV Critically low 38-51 [facility] Comment on above: Performed By: #### L IPD2 #### [facility] [address] [place] [address] Hemoglobin (Bld) [Mass/Vol] 6.8 g/dL Critically low 12.0-17.0 [facility] Comment on above: Performed By: #### L IPD2 #### [facility] [address] [place] [address] Ionized Calcium (iSTAT) 4.4 mg/dL Low 4.5-5.3 [facility] Comment on above: Performed By: #### L IPD2 #### [facility] [address] [place] [address] O2% Sat. (i-STAT) 100.0 % High 95.0-98.0 [facility] Comment on above: Performed By: #### L IPD2 #### [facility] [address] [place] [address] Oxygen (Bld) [Partial pressure] 340.0 mm Hg High 80.0-105.0 [facility] Comment on above: Performed By: #### L IPD2 #### [facility] [address] [place], [place] [address] PCO2 (i-STAT) 40.0 mm Hg Normal 35.0-45.0 [facility] Comment on above: Performed By: #### L IPD2 #### [facility] [address] [place], [place] [address] pH (Bld) 7.393 [pH] Normal 7.350-7.450 [facility] Comment on above: Performed By: #### L IPD2 #### [facility] [address] [place], [place] [address] Potassium [Moles/Vol] 4.4 mmol/L Normal 3.5-4.9 [facility] Comment on above: Performed By: #### L IPD2 #### [facility] [address] [place], [place] [address] Sodium [Moles/Vol] 141 mmol/L Normal 138-146 [facility] Comment on above: Performed By: #### L IPD2 #### [facility] [address] [place], [place] [address] Total CO2 (i-STAT) 26 mmol/L Normal 23-27 [facility] Comment on above: Performed By: #### L IPD2 #### [facility] [address] [place] [address] CG8 Venous Panel (i-STAT)on 01-09-2020 Base Excess (i-STAT) -8.0 mmol/L Normal -2.0 to 3.0 [facility] Comment on above: Performed By: #### L IPD2 #### [facility] [address] [place] [address] Glucose [Mass/Vol] 148 mg/dL High 70-99 [facility] Comment on above: Performed By: #### L IPD2 #### [place] [address] HCO3 (Bld) [Moles/Vol] 19.0 mmol/L Low 23.0-28.0 [facility] Comment on above: Performed By: #### L IPD2 #### [address] [address] Hematocrit (Bld) [Volume fraction] 25 %PCV Low 38-51 [facility] Comment on above: Performed By: #### L IPD2 #### [address] [address] Hemoglobin (Bld) [Mass/Vol] 8.5 g/dL Low 12.0-17.0 [facility] Comment on above: Performed By: #### L IPD2 #### [place] [id number] Ionized Calcium (iSTAT) 4.7 mg/dL Normal 4.5-5.3 [facility] Comment on above: Performed By: #### L IPD2 #### [facility] [address] [place] [address] O2% Sat. (i-STAT) 75.0 % Normal 35.0-85.0 [facility] Comment on above: Performed By: #### L IPD2 #### [place] [address] Oxygen (Bld) [Partial pressure] 46.0 mm Hg Normal 20.0-50.0 [facility] Comment on above: Performed By: #### L IPD2 #### [place] [address] PCO2 (i-STAT) 41.4 mm Hg Normal 41.0-51.0 [facility] Comment on above: Performed By: #### L IPD2 #### [place] [address] pH (Bld) 7.271 [pH] Low 7.310-7.410 [facility] Comment on above: Performed By: #### L IPD2 #### [place] [address] Potassium [Moles/Vol] 4.1 mmol/L Normal 3.5-4.9 [facility] Comment on above: Performed By: #### L IPD2 #### [place] [address] Sodium [Moles/Vol] 137 mmol/L Low 138-146 [facility] Comment on above: Performed By: #### L IPD2 #### [place] [address] Total CO2 (i-STAT) 20 mmol/L Low 24-29 [facility] Comment on above: Performed By: #### L IPD2 #### [place] [address] CONSULTon 01-09-2020 CONSULT HNO ID: [id number] Author: Anson Beaver Service: Critical Care Author Type: Physician Type: Consults Filed: 01/09/2020 3:51 PM Note Text: Asked to see this patient for post-op ICU care after CABG. Notes and meds reviewed. Full ROS with the RN done. No ROS with the pt possible. Ms Woodward is an 84 year old white woman with PMH of FL/ CAD, DM-II, hx of CVA, HTN, diverticulosis, gout, and HL had initially presented to [facility] for chest pain, found to have STEMI. She was then transferred here for further care. She was found to have multi-vessel CAD and so underwent CABG today. PMH; as above PSH: LHC, angioplasty, tanya, colonoscopy, surgery for tubal FH: Mom had FL, dad - heart disease, brother with mouth cancer SH: Non-smoker Meds: Reviewed Allergies: Reviewed. On exam: 126/ 57, 80, 19, 36.3, 100% on 50% vent SIMV: 500/ 12/ 505/ 5/ PS 10 Still under the influence of GA Right IJ Phoenix-Veto ETT and OG [place] Chest tubes with no leak Right brachial A-line NAD, elderly woman RRR Mostly CTA B Soft, ND, BS present No pedal edema; right leg with VG site has dressing CO/ CI - does not seem reliable CVP 12 mPAP 28 Data: 7.34/ 34/ 78 Na 144, K 3.5, Cl 115, HCO3 20, BUn 28, Cr 1.2, Glu 187 Hb 13.9, WCC 30, Plt 182 CXR reviewed and shows right IJ Phoenix, ETT, OG, chest tubes in place; left small effusion; very small apical left PTX CT chest: Thoracic aorta is within normal limits. Widely scattered tiny nodules measuring 4 mm or less. ?If clinically indicated, follow-up in one year could be considered. Lobular contour to the kidneys making it difficult to exclude mass lesion. ?Ultrasound is recommended. ?There is a punctate nonobstructive right renal calculus. LHC: Multivessel CAD ECHO: Moderate segmental systolic dysfunction; EF 30%, mildly enlarged LA, 2+ MR, diastolic function is indeterminate IMPRESSION: Ms Woodward is an 84 year old white woman with PMH of FL/ CAD, DM-II, hx of CVA, HTN, diverticulosis, gout, and HL had initially presented to [facility] for chest pain, found to have STEMI. She was then transferred here for further care. She was found to have multi-vessel CAD and so underwent CABG today. 1. Acute anticipated post-op respiratory insufficiency 2. S/p CABG * 4; GHOSH side to side to diag and end to side to LAD in sequential fashion, SVG side to side to OM and end to side to posterolateral branch of RCA in sequential fashion; POD # 0 3. Acute systolic heart failure, likely ischemic; EF 30% 4. Multivessel CAD/ STEMI at presentation 5. DM-II 6. Medical problems as above PLAN: - wean vent per protocol and extubate as possible - wean epi as tolerated - pain control - BS per endo - chest tubes per Dr Rivera - will follow with you Code status: full PROGNOSIS: Guarded Patient/Family Updated: no family at the bedside Discussed with RN and pharm D. This patient has a high probability of sudden, clinically significant deterioration, which requires the highest level of physician preparedness to intervene urgently. I managed/supervised life or organ supporting interventions that required frequent physician assessment. I devoted my full attention to the direct care of this patient for the amount of time indicated below. Time I spent with family or surrogate(s) is included only if the patient was incapable of providing the necessary information or participating in medical decision making. Time devoted to teaching and to any procedures I billed separately is not included. Critical Care Documentation: The patient has the following organ/system impairment(s): Complex life-threatening medical problem(s) and immediate post-op acute anticipated resp insufficiency Time spent providing critical care services: 30 minutes. SIGNATURE: Anson Beaver MD [facility] PAGER:[phone] [facility] CONSULT PROGon 01-09-2020 CONSULT PROG HNO ID: [id number] Author: Ann Echeverria Service: Endocrinology Author Type: Physician Type: Consult Progress Note Filed: 01/09/2020 7:34 PM Note Text: ENDOCRINOLOGY CONSULT PROGRESS NOTE SERVICE DATE: 01/09/2020 SERVICE TIME: 7:27 PM Subjective INTERVAL HPI: followed for DM type 2 on insulin MDI; can not tolerate metformin due to diarrhea; has CAD;s/p CABG today 01/09/2020 She was admitted there with chest pain and was found to have coronary artery disease. Patient has history of angioplasty 30 years ago. ?H/o CAD and remote FL now admitted with NSTEMI who is found to have severe MV CAD and ischemic CM with EF 30%, no CHF, in a setting of DM, HTN, HLD, CKD, remote CVA. Regarding diabetes, patient has history of type 2 diabetes for about 5 years. At home, patient takes Basaglar 9 units every morning and she takes NovoLog 8 units for breakfast and dinner and 6 units for lunch. Her A1c was 7.6 on December 25, now her A1c is 8.4. Today s/p CABG on IV insulin gtt per CABG protocol at 3-5 units/hour DIET NPO Recent Labs 01/09/20 1905 01/09/20 1655 01/09/20 1602 01/09/20 1415 01/09/20 0535 01/08/20 0435 GLUC -- -- -- -- 187* -- 161* -- 134* GLUCOSEMETER 175* 163* 154* < > -- < > -- < > -- < > = values in this interval not displayed. Current Facility-Administered Medications Medication Dose Route Frequency - insulin regular iv infusion 100 units in NaCl 0.9% 100 mL - AK CARD SURG NOMOGRAM 0-12 Units/hr INTRAVENOUS CONTINUOUS - insulin regular human iv bolus 10 Units 10 Units INTRAVENOUS PRN - dextrose 50% in water 25 mL syringe 12.5 g INTRAVENOUS PRN - [START ON 01/10/2020] aspirin 81 mg chewable tab(s) 81 mg ORAL DAILY - potassium chloride iv piggyback 20 mEq/100 mL 20 mEq INTRAVENOUS PRN - magnesium sulfate in water 2 g in sterile water 50 ml 2 g INTRAVENOUS PRN(NO DISPENSE) - acetaminophen 1,000 mg tab(s) (TYLENOL) 1,000 mg ORAL/FEEDING TUBE q 6 H - lactated ringers infusion 50 mL/hr INTRAVENOUS CONTINUOUS - albuterol 2.5 mg /3 mL (0.083 %) 2.5 mg (PROVENTIL) 2.5 mg INHALATION q 2 H PRN - EPINEPHrine 4 mg in NaCl 0.9% 250 mL 0.5-10 mcg/min INTRAVENOUS CONTINUOUS - PHENYLephrine iv infusion 10 mg in NaCl 0.9% 250 mL (FERNANDA-SYNEPHRINE) 0-100 mcg/min INTRAVENOUS CONTINUOUS - [START ON 01/10/2020] atorvastatin 40 mg tab(s) (LIPITOR) 40 mg ORAL AT BEDTIME - ceFAZolin iv piggyback 2 g in D5W (iso-osmotic) 100 mL (ANCEF) 2 g INTRAVENOUS q 6 HR - [START ON 01/10/2020] pantoprazole 40 mg injection (PROTONIX) 40 mg INTRAVENOUS DAILY (6 AM) - ondansetron (PF) 4 mg injection (ZOFRAN) 4 mg INTRAVENOUS q 6 H PRN - calcium chloride 1 g in D5W 100 mL 1 g INTRAVENOUS PRN(NO DISPENSE) - midazolam (PF) 2 mg injection (VERSED) 2 mg INTRAVENOUS q 6 H PRN - lidocaine 4 % 1 Patch (SALONPAS) 1 Patch TRANSDERMAL DAILY And - lidocaine patch - REMOVE OTHER AT BEDTIME And - lidocaine - VERIFY PATCH OTHER q 8 H - bisacodyl 10 mg suppository (DULCOLAX) 10 mg RECTAL DAILY PRN - [START ON 01/10/2020] magnesium oxide 400 mg tab(s) (MAG-OX) 400 mg ORAL DAILY - NaCl 0.9% 250 mL iv bolus 250 mL INTRAVENOUS Post-Op PRN - [START ON 01/10/2020] polyethylene glycol 3350 17 g packet (MIRALAX, GLYCOLAX) 17 g ORAL DAILY - [START ON 01/10/2020] senna-docusate 8.6-50 mg 1 tablet (SENNA-S) 1 tablet ORAL BID - traMADol 50-100 mg tab(s) (ULTRAM) 50-100 mg ORAL q 6 H PRN - morphine 2-4 mg injection 2-4 mg INTRAVENOUS q 1 H PRN - dexmedetomidine 400 mcg in NaCl 0.9% 100 mL (PRECEDEX) 0.2-0.7 mcg/kg/hr INTRAVENOUS CONTINUOUS - albumin (5%) 12.5 g infusion 12.5 g INTRAVENOUS PRN Objective PHYSICAL EXAM:BP 126/57 Pulse 85 Temp (Src) 97.5 (Core) Resp 28 Ht 5' 3 (1.60m) Wt 158 lb 11.2 oz (72.0kg) SpO2 99% BMI 28.12 kg/(m2). O2 Therapy: Nasal Cannula, Liters: 3, %FIO2: 30 NAD, extubated RRR +chest tubes abd soft No edema DATA: Diagnostic tests reviewed for today's visit: Most recent labs and imaging results. Assessment/Plan Diabetes mellitus type 2; HbA1c 8.4; on lantus 12 units daily and humalog 8 units qac tid plus correction; now on iv insulin gtt per CABG protocol 3-5 units per hour SHA/CKS stage III; S creat 1.26(1.44)(1.46)(1.8)(2 .1) (baseline 1.3) ACS (acute coronary syndrome) (HCC) POA: Yes Assessment AND Plan: EF 30%; s/p CABG 01/09/2020 SIGNATURE: Ann Echeverria MD PATIENT NAME: Concha Woodward DATE: January 09, 2020 TIME: 7:31 PM PAGER: [phone] Normal [facility] ECG COMPLETEon 01-09-2020 ECG COMPLETE NAME : CONCHA WOODWARD PID : [id number] : 1935 Gender : Female Race : ORD : [id number] Procedure Date : Jan 09 2020 14:14:43 Edit Date : Jan 11 2020 12:14:15 Diagnosis:SINUS TACHYCARDIA LEFT AXIS DEVIATION RIGHT BUNDLE BRANCH BLOCK INFERIOR INFARCT , AGE UNDETERMINED ABNORMAL ECG NO PREVIOUS ECGS AVAILABLE Confirmed by MD CHACE, TERRY ([id number]) on 01/11/2020 12:14:14 PM Ventricular Rate : 103 BPM Atrial Rate : 103 BPM P-R Interval : 170 ms QRS Duration : 126 ms Q-T Interval : 402 ms QTC Calculation(Bazett) : 526 ms P [place] : 84 degrees R [place] : -59 degrees T [place] : 84 degrees Test Reason : Post-OP Location : [address] [place] [address] Overread By : MD MAS SERGEY Edited By : MD MAS SERGEY Referred By : ISIDRO WOLF Acquired by : YAKELIN LEAVITT Normal [facility] Hemogramon 01-09-2020 Erythrocyte distribution width (RBC) [Ratio] 14.3 % Normal 11.7-14.4 [facility] Comment on above: Performed By: #### P BNP #### [address] [address] Hematocrit (Bld) [Volume fraction] 42.3 % Normal 34.1-44.9 [facility] Comment on above: Performed By: #### P BNP #### [address] [place], [place] [address] Hemoglobin (Bld) [Mass/Vol] 13.9 g/dL Normal 11.2-15.7 [facility] Comment on above: Performed By: #### P BNP #### [facility] [address] [place] [address] MCH (RBC) [Entitic mass] 30.3 pg Normal 25.6-32.2 [facility] Comment on above: Performed By: #### P BNP #### [place] [address] MCHC (RBC) [Mass/Vol] 32.9 % Normal 31.6-34.8 [facility] Comment on above: Performed By: #### P BNP #### [place] [address] MCV (RBC) [Entitic vol] 92.4 fL Normal 79.4-94.8 [facility] Comment on above: Performed By: #### P BNP #### [place] [address] Platelet mean volume (Bld) [Entitic vol] 11.8 fL Normal 9.4-12.3 [facility] Comment on above: Performed By: #### P BNP #### [place] [address] Platelets (Bld) [#/Vol] 182 thou/cmm Normal 182-369 [facility] Comment on above: Performed By: #### P BNP #### [place] [address] RBC (Bld) [#/Vol] 4.58 mil/cmm Normal 3.93-5.22 [facility] Comment on above: Performed By: #### P BNP #### [place] [address] RDW SD 47.2 fl High 36.4-46.3 [facility] Comment on above: Performed By: #### P BNP #### [place] [address] WBC (Bld) [#/Vol] 30.65 thou/cmm Critically high 3.98-10.0 4 [facility] Comment on above: Result Comment: Repe ated AND verified Performed By: #### P BNP #### [place] [address] Hemogram/Diffon 01-09-2020 Abs Immature Grans 0.10 thou/cmm High 0.00-0.05 [facility] Comment on above: Performed By: #### L IPD2 #### [place] [address] Abs Neut (ANC) 7.13 thou/cmm High 1.56-6.13 [facility] Comment on above: Performed By: #### L IPD2 #### [place] [address] Abs. Baso 0.06 thou/cmm Normal 0.01-0.08 [facility] Comment on above: Performed By: #### L IPD2 #### [place] [address] Abs. [place] 1.08 thou/cmm High 0.27-0.70 [facility] Comment on above: Performed By: #### L IPD2 #### [place] [address] Basophils/100 WBC (Bld) 0.5 % Normal [facility] Comment on above: Performed By: #### L IPD2 #### [place] [address] Eosinophils (Bld) [#/Vol] 0.06 thou/cmm Normal 0.00-0.31 [facility] Comment on above: Performed By: #### L IPD2 #### [place] [address] Eosinophils/100 WBC (Bld) 0.5 % Normal [facility] Comment on above: Performed By: #### L IPD2 #### [place] [address] Immature Grans 0.80 % Normal [facility] Comment on above: Performed By: #### L IPD2 #### [facility] [address] [place], [place] [address] Lymphocytes (Bld) [#/Vol] 3.80 thou/cmm High 1.18-3.74 [facility] Comment on above: Performed By: #### L IPD2 #### [facility] [address] [place], [place] [address] Lymphocytes/100 WBC (Bld) 31.1 % Normal [facility] Comment on above: Performed By: #### L IPD2 #### [facility] [address] [place], [place] [address] Monocytes/100 WBC (Bld) 8.8 % Normal [facility] Comment on above: Performed By: #### L IPD2 #### [facility] [address] [place], [place] [address] Seg Neutrophil 58.3 % Normal [facility] Comment on above: Performed By: #### L IPD2 #### [facility] [address] [place] [address] Erythrocyte distribution width (RBC) [Ratio] 14.3 % Normal 11.7-14.4 [facility] Comment on above: Performed By: #### L IPD2 #### [facility] [address] [place] [address] Hematocrit (Bld) [Volume fraction] 31.4 % Low 34.1-44.9 [facility] Comment on above: Performed By: #### L IPD2 #### [facility] [address] [place], [place] [address] Hemoglobin (Bld) [Mass/Vol] 10.4 g/dL Low 11.2-15.7 [facility] Comment on above: Performed By: #### L IPD2 #### [facility] [address] [place] [address] MCH (RBC) [Entitic mass] 30.7 pg Normal 25.6-32.2 [facility] Comment on above: Performed By: #### L IPD2 #### [facility] [address] [place] [address] MCHC (RBC) [Mass/Vol] 33.1 % Normal 31.6-34.8 [facility] Comment on above: Performed By: #### L IPD2 #### [facility] [address] [place] [address] MCV (RBC) [Entitic vol] 92.6 fL Normal 79.4-94.8 [facility] Comment on above: Performed By: #### L IPD2 #### [facility] [address] [place] [address] Platelet mean volume (Bld) [Entitic vol] 11.4 fL Normal 9.4-12.3 [facility] Comment on above: Performed By: #### L IPD2 #### [place] [address] Platelets (Bld) [#/Vol] 291 thou/cmm Normal 182-369 [facility] Comment on above: Performed By: #### L IPD2 #### [place] [address] RBC (Bld) [#/Vol] 3.39 mil/cmm Low 3.93-5.22 [facility] Comment on above: Performed By: #### L IPD2 #### [place] [address] RDW SD 47.2 fl High 36.4-46.3 [facility] Comment on above: Performed By: #### L IPD2 #### [place] [address] WBC (Bld) [#/Vol] 12.23 thou/cmm High 3.98-10.04 [facility] Comment on above: Performed By: #### L IPD2 #### [place] [address] Magnesium Bloodon 01-09-2020 Magnesium [Mass/Vol] 2.6 mg/dL Normal 1.6-2.6 [facility] Comment on above: Performed By: #### P BNP #### [place] [address] NURSING PROGon 01-09-2020 NURSING PROG HNO ID: [id number] Author: Lacey (Rn) RITA Morton Service: Nursing Author Type: Registered Nurse Type: Nursing Progress Note Filed: 01/09/2020 6:37 PM Note Text: Nursing Progress Note Patient Name: Concha Woodward Patient Location: [place] [address] [address] 33- Daily Note: Pt complaining of extreme pain in right leg, foot light purple in color, unable to doppler pulse. Pawel wrap taken down, foot pinked back up and able to doppler pulse again. Dr Rivera notified, OK to leave pawel wrap off and apply petar hose. This note was completed by: Lacey Morton RN [facility] O2% Measured Venouson 2019 O2% Measured Venous 67.3 % High 18.2-66.4 [facility] Comment on above: Performed By: #### P BNP #### [place] [address] OPERATIVE NOon 01-09-2020 OPERATIVE NO HNO ID: [id number] Author: Yanet Rivera Service: Thoracic Surgery Author Type: Physician Type: Operative Report Filed: 01/11/2020 12:38 PM Note Text: [facility] - Operative Report CONCHA WOODWARD I : 1935 AGE: 84. SEX: F PATIENT TYPE: I HOSP SVC: INTM LOCATION: [facility] ATTENDING PHYSICIAN: YANET RIVERA CSN NUMBER: [id number] DATE OF SURGERY/PROCEDURE: 01/09/2020 INCISION/PROCEDURE START TIME: 8:17 AM INCISION CLOSE/PROCEDURE END TIME: 1:46 PM PREOPERATIVE DIAGNOSIS: Severe 3-vessel coronary artery disease with ohi-WO-wrgkbwa elevation myocardial infarction with ischemic cardiomyopathy with chronic kidney disease stage 3 with preoperative anemia and remote stroke with mild residual on the left. POSTOPERATIVE DIAGNOSIS: Severe 3-vessel coronary artery disease with non-ST- segment elevation myocardial infarction with ischemic cardiomyopathy with chronic kidney disease stage 3 with preoperative anemia and remote stroke with mild residual on the left with a very small obtuse marginal branch, less than 1.5 mm. SURGEON: Yanet Rivera MD GUN PERFORATOR: The vein harvest performed by RANDY Grant. Systems Tester was by Karen Baker SA. SURGERY/PROCEDURE: Coronary artery bypass grafting x4 with a pedicled left internal mammary artery graft [id number] to the diagonal and end-to-side to the anterior descending in sequential fashion, saphenous vein graft [id number] to the small obtuse marginal branch of the circumflex and end-to-side to the sizable posterior lateral branch of the right coronary artery. Endoscopic vein harvesting, right lower extremity, right thigh and right leg for use as conduit. ANESTHESIA: General endotracheal. INDICATIONS AND FINDINGS: Indications: Patient was accepted in transfer from [place] by Dr. Rosenberg. I was ultimately asked to assume cardiac surgery care for the patient. She did have to remain off her chronic Plavix and Brilinta loading from [place] for at least 5 days prior to being taken to surgery. She is 84 years old and underwent extensive workup with a significantly increased operative risk with an STS predicted risk of mortality of 8%. Her kidney function did gradually improve. She was seen by Nephrology. She was brought to the operating room today with the understanding that because of her significant notable anemia and underlying chronic kidney disease, she was highly likely to require transfusions. Findings: At time of surgery showed the patient's hemoglobin and hematocrit to already be at 9 and 27 before incision. The anterior descending was the smaller vessel probably 1.5 mm, diagonal was larger at 2 mm. There was an anterior trunk ostial stenosis affecting both and there was intercurrent disease between the diagonal and the smallish anterior descending, so I did bypass both and was able to use her mammary artery for sequential graft. The obtuse marginal branch was small as noted above, less than 1.5 mm but was the only circumflex branch bypassable and was bypassed sequentially along with a sizable distal right distribution posterior lateral branch, which was in the circumflex distribution. The patient even with only having 1 proximal performed, the patient had an inordinate amount of air in the left ventricle and it took quite some time for de-airing to occur but was accomplished before from bypass. DESCRIPTION OF PROCEDURE: The patient was brought to the operating room, placed on operating table in supine position. Intravenous and intra-arterial access were obtained. General endotracheal anesthesia was induced. After placement of further appropriate monitors, lines, and tubes including the Phoenix-Veto and intraoperative MAYELA, her neck, chest, abdomen, groins, thighs, legs, and feet were prepped and draped in surgical fashion. Preoperative ultrasound examination per the [place] had the vein looking better on the right side, so the right greater saphenous vein was harvested from the right thigh and right leg for use as conduit. The heart was exposed through median sternotomy incision. Left internal mammary artery was taken down from its position behind the chest wall as a pedicled graft. Once saphenous vein harvest had proceeded sufficiently, the rest of the heparin was given. The pericardium was opened and cradled. The GHOSH was triply hemoclipped distally, divided, prepared for anastomosis. It was not long, but it was at least 2 mm with good flow. Pericardium was opened and cradled. Standard cannulation was carried out for cardiopulmonary bypass for coronary artery bypass grafting surgery. The method of myocardial protection employed was blood cardioplegia given antegrade, given down the vein grafts as the distals were completed via Octopus device, and given retrograde via coronary sinus catheter. All distal anastomosis and single proximal anastomosis carried out during a single cross-clamp episode. Venting was accomplished via the distal ascending aortic cardioplegic venting apparatus. After dissecting and inspecting the targets ultimately decided that we did have adequate size and due to the diagonal being larger and in close proximity to the smaller anterior descending--we were able to use her GHOSH for sequential graft to both of these. The first graft to be done was the posterior lateral branch of the right coronary artery, which was in the circumflex distribution. This was at least a 2 mm vessel. Arteriotomy was created. The end of a segment of saphenous vein was sutured to the arteriotomy with running 7-0 Prolene. We then dissected the smallish high obtuse marginal branch. Arteriotomy was made. A venotomy was made in the appropriate place on the vein we had just utilized. A crossing [id number]-[id number] anastomosis was constructed with 7-0 Prolene. Filling was limited in the small branch as expected. Good filling persisted in the posterior lateral branch of the right coronary. Next, the left internal mammary was passed through a rent in the pericardium lateral to the thymic fat pad. I had cleared the pedicle at the site chosen for the nuuk-et-exjo anastomosis to the diagonal. Arteriotomy was made in the diagonal. Arteriotomy was made in the midpoint of the GHOSH, and it was sutured to the diagonal with running 7-0 Prolene. Bulldog clamp was removed. Good filling was seen distally in the diagonal. There was good flow out the end of the [place] GHOSH as well. Bulldog clamp was replaced. We then made arteriotomy in the anterior descending at the previously dissected chosen place. The end of the just utilized GHOSH was sutured to the arteriotomy with running 7-0 Prolene. Next, the pedicle was tacked to either side of the diagonal epicardial surface with 5-0 silk Additionally, the pedicle was tacked to the epicardial fat on either side of the anterior descending with 5-0 silk as well. We then constructed the single proximal anastomosis with 4.4 mm punch and running 6-0 Prolene. As we were completing this proximal anastomosis, the bulldog clip was removed from the GHOSH pedicle to allow reperfusion and rewarming. The patient received warm retrograde blood via the coronary sinus catheter as well. The cross-clamp was then removed. Patient was then allowed adequate reperfusion and rewarming period. During this time, retrograde coronary sinus catheter was removed, pursestring suture tied, and reinforced with 4-0 Prolene. 2 atrial pacing wires were placed. 2 right ventricular pacing wires were placed. 1 of them was oversewn for little bleeding with some 6-0 Prolene. Note was placed in the chart to cut the right ventricular pacing wires. The right atrial wires could presumably be removed in normal fashion in the postop course. We then allowed temporary cardiac ejections and temporary ventilations to check for de-airing. De-airing was not complete, and there was quite a bit of air in the left ventricle with manipulation and Time, and allowing partial ejections, over time, we were able to completely clear the air per Anesthesia via intraoperative MAYELA. We then stopped the cardiac ejections, stopped the ventilations, removed the cardioplegic venting apparatus, and tied its Prolene suture. We then from cardiopulmonary bypass on low-dose inotropic support. Venous cannula was removed, its pursestring suture secured. After obtaining adequate cardiac function with improving stabilizing hemodynamics, protamine was then administered to reverse the heparin. As we were completing the protamine dose, the arterial cannula was removed, pursestring sutures were tied, and reinforced with 4-0 Prolene. After obtaining adequate hemostasis with continuing hemodynamic stability, we then prepared to close. The patient's own sinus rhythm had taken over in the 80 range and the transient AV sequential pacing was no longer required. We had successfully been able to pace earlier. The right atrial pursestring was tied. Second tie was placed around the base of right atrial appendage. The sternum was then approximated with multiple stainless steel wires. Remainder of the sternotomy incision was closed in layers with absorbable suture. Dermabond was placed. Left pleural space drained with 32-Marshallese chest tube. Mediastinum drained with a 32 PleuraFlow special mediastinal catheter. These were connected to water-seal suction drainage device. The small endoscopic vein harvest incision in the right lower extremity was closed as appropriate with absorbable suture. Dermabond was placed. Patient was then transported directly to the cardiac surgery intensive care unit after correct sponge, needle, and instrument count. Yanet Rivera MD PS:[id number] Normal [facility] PROGRESSon 01-09-2020 PROGRESS HNO ID: [id number] Author: Cesar Burroughs Service: Nephrology Author Type: Physician Type: Progress Notes Filed: 01/09/2020 5:29 PM Note Text: [facility] Nephrology Progress Note Subjective/ INTERVAL HISTORY: We are seeing the patient for issues with SHA and New onset CHF Cr is better and holding now close to baseline SOB resolved No edema S/p CABG All labs / data/ chart and interval events are noted BP has been stable No issues with urine output Lytes are better No s/o CHF Responding to current rx at this time No other new issues No change in the PFSH at this time ROS is (-) unless mentioned Objective/ 01/09/20 0541 01/09/20 0600 01/09/20 0703 01/09/20 1400 BP: 162/70 126/57 Pulse: 100 80 95 Resp: 16 16 Temp: 37.1 ?C (98.8 ?F) 36.9 ?C (98.4 ?F) 36.1 ?C (97 ?F) TempSrc: Oral Temporal Artery Core SpO2: 96% 96% 98% Weight: 72 kg (158 lb 11.2 oz) Height: 24HR INTAKE/OUTPUT: Intake/Output Summary (Last 24 hours) at 01/09/2020 1438 Last data filed at 01/09/2020 1430 Gross per 24 hour Intake ? Output 75 ml Net -75 ml Constitutional: On vent , arousable HEAD, EYES, ENT: ?No pallor. ?No cyanosis. ?No icterus. ?Mucous membranes of mouth ?were moist. NECK: ?Otherwise supple. ?Hard for me to see a jugular vein distention elevation. ?LUNGS: ?Clear to auscultation. ?No rales. CARDIOVASCULAR: ?S1, S2. ?No rubs or gallops.CT are noted ABDOMEN: ?Soft, obese, nontender. ?Bowel sounds are heard. EXTREMITIES: ?No peripheral edema. SKIN: ?Otherwise warm and moist. PSYCH: ?Normal affect. ?Does not appear to be anxious, depressed, or agitated. with park noted Good urine Current Facility-Administered Medications Medication Dose Route Frequency - insulin regular iv infusion 100 units in NaCl 0.9% 100 mL - AK CARD SURG NOMOGRAM 0-12 Units/hr INTRAVENOUS CONTINUOUS - insulin regular human iv bolus 10 Units 10 Units INTRAVENOUS PRN - dextrose 50% in water 25 mL syringe 12.5 g INTRAVENOUS PRN - potassium chloride iv piggyback 20 mEq/100 mL 20 mEq INTRAVENOUS PRN - magnesium sulfate in water 2 g in sterile water 50 ml 2 g INTRAVENOUS PRN(NO DISPENSE) - acetaminophen 1,000 mg tab(s) (TYLENOL) 1,000 mg ORAL/FEEDING TUBE q 6 H - lactated ringers infusion 50 mL/hr INTRAVENOUS CONTINUOUS - albuterol 2.5 mg /3 mL (0.083 %) 2.5 mg (PROVENTIL) 2.5 mg INHALATION q 2 H PRN - EPINEPHrine 4 mg in NaCl 0.9% 250 mL 0.5-10 mcg/min INTRAVENOUS CONTINUOUS - PHENYLephrine iv infusion 10 mg in NaCl 0.9% 250 mL (FERNANDA-SYNEPHRINE) 0-100 mcg/min INTRAVENOUS CONTINUOUS - ondansetron (PF) 4 mg injection (ZOFRAN) 4 mg INTRAVENOUS q 6 H PRN - calcium chloride 1 g in D5W 100 mL 1 g INTRAVENOUS PRN(NO DISPENSE) - midazolam (PF) 2 mg injection (VERSED) 2 mg INTRAVENOUS q 6 H PRN - lidocaine 4 % 1 Patch (SALONPAS) 1 Patch TRANSDERMAL DAILY - bisacodyl 10 mg suppository (DULCOLAX) 10 mg RECTAL DAILY PRN - NaCl 0.9% 250 mL iv bolus 250 mL INTRAVENOUS Post-Op PRN - traMADol 50-100 mg tab(s) (ULTRAM) 50-100 mg ORAL q 6 H PRN - morphine 2-4 mg injection 2-4 mg INTRAVENOUS q 1 H PRN - dexmedetomidine 400 mcg in NaCl 0.9% 100 mL (PRECEDEX) 0.2-0.7 mcg/kg/hr INTRAVENOUS CONTINUOUS Data/ CBC, Coags, BMP, Mg, Phos Recent Labs 01/09/20 1344 01/09/20 1302 01/09/20 1203 01/09/20 0535 01/08/20 0435 01/07/20 0615 WBC -- -- -- -- 12.23* 9.47 9.70 HB -- -- -- -- 10.4* 10.6* 10.5* HCT 33* 26* 21* < > 31.4* 32.4* 33.1* PLT -- -- -- -- 291 298 307 APTT -- -- -- -- -- 54.0* 58.6* NA 143 141 138 < > 139 141 141 K 3.6 3.4* 4.5 < > 4.0 3.7 3.4* CHLOR -- -- -- -- 113* 113* 114* CO2 -- -- -- -- 20* 22 22 BUN -- -- -- -- 33* 35* 41* CREAT -- -- -- -- 1.19* 1.44* 1.46* GLUC -- -- -- -- 161* 134* 126* CA -- -- -- -- 8.8 8.8 8.6 < > = values in this interval not displayed. Assessment/ 84 year old female who presents with ? 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 Avoid all PAWEL-I , for 72 h until cr is stable and off pressors We will follow Normal [facility] PROGRESS HNO ID: [id number] Author: Yanet Rivera Service: Thoracic Surgery Author Type: Physician Type: Progress Notes Filed: 01/09/2020 1:48 PM Note Text: CARDIOTHORACIC BRIEF OP NOTE LOG ID: [id number] SURGERY/PROCEDURE DATE: 01/09/2020 INCISION/PROCEDURE START TIME: 8:17 AM INCISION CLOSE/PROCEDURE END TIME: SURGEON(S) AND GUN PERFORATOR(S): Surgeon(s) and Role: * Yanet Rivera - Primary Physician Security Representative: Darwin Rojo (Pa) Critical Care Nurse: Juana Baker SA Critical Care Nurse (Relief): Tami Paige SA PROCEDURES AND ANESTHESIA: CABG X 4 pedicled GHOSH side to side to diag and end to side to LAD in sequential fashion, svg side to side to OM and end to side to Posterolateral branch of RCA in sequential fashion. Procedure(s) and Anesthesia Type: * BYPASS GRAFT ARTERY CORONARY ON-PUMP FOUR CORONARY ARTERIAL GRAFTS GHOSH - LAD / /DCA, SVG - PDA / CX WITH ENDOVASCULAR VEIN HARVESTING - General Great Saphenous Vein, Right, Percutaneous endoscopic ANESTHESIA: General BRIEF FINDINGS: LAD 1.5 mm, diag 2mm, om <1.5mm, Posterolat 2mm+, vein OK GHOSH 2mm+ good flow. ESTIMATED BLOOD LOSS: 200ml SPECIMENS: None COMPLICATIONS: None . PREOPERATIVE DIAGNOSIS: coronary artery disease and anemia and CKD stage III and NSTEMI and ischemic cardiomyopathy and diabetes and remote stroke POSTOPERATIVE DIAGNOSIS: Same. SIGNATURE: Yanet Rivera MD PATIENT NAME: Concha Woodward DATE: January 09, 2020 TIME: 1:40 PM PAGER/CONTACT #: [phone] Normal [facility] Protimeon 01-09-2020 INR Coag (PPP) [Relative time] 1.09 {INR} Normal 0.90-1.30 [facility] Comment on above: Result Comment: Camille min K Antagonist (VKA) Therapeutic Range: INR 2 to 3 (Target INR of 2.5) Note: For patients treated with VKA drugs, such as warfarin, the [place] [employer] 2012 Guideline recommends [...] 2.5 to 3.5 target INR of 3). Guyatt GH, et al. Chest 2012; 141:7S-47S Tomi RA, et al. [facility] 2017; 70: 252-289 Performed By: #### P BNP #### [place] [address] PT Coag (PPP) [Time] 11.7 s Normal 9.7-13.0 [facility] Comment on above: Performed By: #### P BNP #### [place] [address] RBC Productson 01-09-2020 Xmatch Unit 1 see below Normal [facility] Comment on above: Result Comment: Comp atible Performed By: #### L IPD2 #### [place] [address] Xmatch Unit 2 see below Normal [facility] Comment on above: Result Comment: Comp atible Performed By: #### L IPD2 #### [place] [address] XR CHEST 1V FRONTALon 2019 XR CHEST 1V FRONTAL * * *Final Report* * * DATE OF EXAM: Jan 09 2020 2:52PM [id number] - XR CHEST 1V FRONTAL / PROCEDURE REASON: Evaluate tube, line or lead position * * * * Physician Interpretation * * * * EXAMINATION: CHEST RADIOGRAPH (SINGLE VIEW AP OR PA) CLINICAL HISTORY: Evaluate tube, line or lead position MQ: XC1_5 Comparison: CT chest study 01/05/2020 and chest radiographs 06/16/2010. RESULT: Lines, tubes, and devices: EKG leads and monitoring wires overlie the chest. There is an endotracheal tube in profile with the tracheal airway terminating approximately 2 cm above the vitaliy. There is an enteric tube looped within the proximal stomach. There is a right internal jugular Phoenix-Veto catheter terminating in profile with the pulmonary outflow tract. There are mediastinal and left thoracostomy tubes. There are epicardial wires. Lungs and pleura: There are low lung volumes with hypoventilatory changes. There is an apparent pleural line projecting inferior to the proximal left second rib. There is left basilar pleuroparenchymal opacity obscuring the hemidiaphragm with blunting of the lateral costophrenic angle. Cardiomediastinal silhouette: Normal cardiomediastinal silhouette. Other: Postoperative changes of median sternotomy. Cholecystectomy clips. IMPRESSION: Postoperative hypoventilatory chest with suspected very small left apical pneumothorax, left basilar pleuroparenchymal opacity suggesting atelectasis with pleural effusion and life-support equipment as noted. A wet reading is made available at time of dictation as requested.. Web Developer: KURT Transcribe Date/Time: Jan 09 2020 2:54P Dictated by : REESE BATES MD This examination was interpreted and the report reviewed and electronically signed by: REESE BATES MD on Jan 09 2020 2:59PM EST Normal [facility] Activated PTTon 01-08-2020 aPTT Coag (Bld) [Time] 54.0 s High 23.0-32.4 [facility] Comment on above: Result Comment: Unfr actionated [...] laboratory APTT reagent in use throughout the [facility]. Performed By: #### L IPD2 #### [place] [address] Basic Panelon 01-08-2020 Creatinine [Mass/Vol] 1.44 mg/dL High 0.51-0.95 [facility] Comment on above: Result Comment: Use of this assay is not recommended for patients undergoing treatment with phenindione, due to the potential for falsely depressed results. Performed By: #### L IPD2 #### [facility] [address] [place], [place] [address] Anion gap [Moles/Vol] 10 mmol/L Normal 8-16 [facility] Comment on above: Performed By: #### L IPD2 #### [facility] [address] [place], [place] [address] CO2 [Moles/Vol] 22 mmol/L Normal 21-32 [facility] Comment on above: Performed By: #### L IPD2 #### [facility] [address] [place], [place] [address] Urea nitrogen [Mass/Vol] 35 mg/dL High 7-18 [facility] Comment on above: Performed By: #### L IPD2 #### [facility] [address] [place], [place] [address] Calcium [Mass/Vol] 8.8 mg/dL Normal 8.5-10.1 [facility] Comment on above: Performed By: #### L IPD2 #### [facility] [address] [place], [place] [address] Glucose [Mass/Vol] 134 mg/dL High 70-99 [facility] Comment on above: Performed By: #### L IPD2 #### [facility] [address] [place], [place] [address] Chloride [Moles/Vol] 113 mmol/L High 98-107 [facility] Comment on above: Performed By: #### L IPD2 #### [facility] [address] [place], [place] [address] Potassium [Moles/Vol] 3.7 mmol/L Normal 3.5-5.1 [facility] Comment on above: Performed By: #### L IPD2 #### [facility] [address] [place], [place] [address] Sodium [Moles/Vol] 141 mmol/L Normal 136-145 [facility] Comment on above: Performed By: #### L IPD2 #### [facility] [address] [place] [address] CONSULT [place] 01-08-2020 CONSULT PROG HNO ID: [id number] Author: Ann Echeverria Service: Endocrinology Author Type: Physician Type: Consult Progress Note Filed: 01/08/2020 8:17 PM Note Text: ENDOCRINOLOGY CONSULT PROGRESS NOTE SERVICE DATE: 01/08/2020 SERVICE TIME: 1:30pm Subjective INTERVAL HPI: followed for DM type 2 on insulin MDI; can not tolerate metformin due to diarrhea; has CAD; tentatively CABG on 01/09/2020 She was admitted there with chest pain and was found to have coronary artery disease. Patient has history of angioplasty 30 years ago. ?H/o CAD and remote FL now admitted with NSTEMI who is found to have severe MV CAD and ischemic CM with EF 30%, no CHF, in a setting of DM, HTN, HLD, CKD, remote CVA. Regarding diabetes, patient has [...] weight has been stable. DIET HEART HEALTHY DIET NPO Recent Labs 01/08/20 1632 01/08/20 1120 01/08/20 0712 01/08/20 0435 01/07/20 0615 01/06/20 0545 GLUC -- -- -- 134* -- 126* -- 148* GLUCOSEMETER 151* 246* 155* -- < > -- < > -- < > = values in this interval not displayed. Current Facility-Administered Medications Medication Dose Route Frequency - albuterol 2.5 mg /3 mL (0.083 [...] KWIKPEN) 8 Units SUBCUTANEOUS w MEALS - hydrOXYzine HCl 12.5 mg tab(s) (ATARAX) 12.5 mg ORAL q 8 H PRN - metoprolol tartrate (short acting) 25 mg tab(s) (LOPRESSOR) 25 mg ORAL q 12 H - hydrALAZINE 10 mg injection (APRESOLINE) 10 mg INTRAVENOUS q 6 H PRN - [START ON 01/09/2020] acetaminophen 1,000 mg tab(s) (TYLENOL) 1,000 mg ORAL ONCE - [START ON 01/09/2020] cold induction cardioplegia solution 500 mL MISCELLANEOUS ONE TIME - [START ON 01/09/2020] maintenance cardioplegia solution 1,000 mL MISCELLANEOUS ONE TIME - [START ON 01/09/2020] heparin 3,000 Units in NaCl 0.9% 500 mL irrigation 3,000 Units IRRIGATION ONE TIME - [START ON 01/09/2020] PHENYLephrine 20 mg in NaCl 0.9% 250 mL (FERNANDA-SYNEPHRINE) 25-300 mcg/min INTRAVENOUS ONE TIME - [START ON 01/09/2020] aminocaproic acid 25 g in NaCl 0.9% 250 mL (AMicAR) 1 g/hr INTRAVENOUS ONE TIME - [START ON 01/09/2020] dexmedetomidine 400 mcg in NaCl 0.9% 100 mL (PRECEDEX) 0.2-0.7 mcg/kg/hr INTRAVENOUS ONE TIME - [START ON 01/09/2020] EPINEPHrine 4 mg in NaCl 0.9% 250 mL 0.5-10 mcg/min INTRAVENOUS ONE TIME - [START ON 01/09/2020] insulin regular iv infusion 100 units in NaCl 0.9% 100 mL - AK CARD SURG NOMOGRAM 0-12 Units/hr INTRAVENOUS ONE TIME - [START ON 01/09/2020] nitroglycerin 100 mg in D5W 250 mL 5-20 mcg/min INTRAVENOUS ONE TIME - [START ON 01/09/2020] PHENYLephrine iv infusion 10 mg in NaCl 0.9% 250 mL (FERNANDA-SYNEPHRINE) 0-100 mcg/min INTRAVENOUS ONE TIME - white petrolatum-mineral oil opthalmic ointment (Soothe Lubricant Eye Night Time Ointment) BOTH EYES AT BEDTIME Objective PHYSICAL EXAM: GENERAL: Alert, no distress, [...] motor function, and cranial nerves III-XII BP 140/60 Pulse 89 Temp (Src) 98.2 (Oral) Resp 14 Ht 5' 3 (1.60m) Wt 165 lb 3.2 oz (74.9kg) SpO2 97% BMI 29.27 kg/(m2). O2 Therapy: Room Air DATA: Diagnostic tests reviewed for today's visit: Most recent labs and imaging results. Assessment/Plan Diabetes mellitus type 2; HbA1c 8.4; on lantus 12 units daily and humalog 8 units qac tid plus correction; cont rx; BS's fluctuating SHA/CKS stage III; S creat 1.44(1.46)(1.8)(2.1) (baseline 1.3) ACS (acute coronary syndrome) (HCC) POA: Yes Assessment AND Plan: EF 30%; awaiting CABG tentatively 01/09/2020 SIGNATURE: Ann Echeverria MD PATIENT NAME: Concha Woodward DATE: January 08, 2020 TIME: 2:35 PM PAGER: [phone] Normal [facility] Hemogram/Diffon 01-08-2020 Abs Immature Grans 0.09 thou/cmm High 0.00-0.05 [facility] Comment on above: Performed By: #### T ROP #### [place] [address] Abs Neut (ANC) 4.20 thou/cmm Normal 1.56-6.13 [facility] Comment on above: Performed By: #### T ROP #### [place] [address] Abs. Baso 0.05 thou/cmm Normal 0.01-0.08 [facility] Comment on above: Performed By: #### T ROP #### [facility] [address] [place], [place] [address] Abs. [place] 0.85 thou/cmm High 0.27-0.70 [facility] Comment on above: Performed By: #### T ROP #### [facility] [address] [place], [place] [address] Basophils/100 WBC (Bld) 0.5 % Normal [facility] Comment on above: Performed By: #### T ROP #### [facility] [address] [place], [place] [address] Eosinophils (Bld) [#/Vol] 0.11 thou/cmm Normal 0.00-0.31 [facility] Comment on above: Performed By: #### T ROP #### [facility] [address] [place], [place] [address] Eosinophils/100 WBC (Bld) 1.2 % Normal [facility] Comment on above: Performed By: #### T ROP #### [facility] [address] [place], [place] [address] Immature Grans 1.00 % Normal [facility] Comment on above: Performed By: #### T ROP #### [facility] [address] [place], [place] [address] Lymphocytes (Bld) [#/Vol] 4.16 thou/cmm High 1.18-3.74 [facility] Comment on above: Performed By: #### T ROP #### [facility] [address] [place], [place] [address] Lymphocytes/100 WBC (Bld) 43.9 % Normal [facility] Comment on above: Performed By: #### T ROP #### [facility] [address] [place], [place] [address] Monocytes/100 WBC (Bld) 9.0 % Normal [facility] Comment on above: Performed By: #### T ROP #### [facility] [address] [place], [place] [address] Seg Neutrophil 44.4 % Normal [facility] Comment on above: Performed By: #### T ROP #### [facility] [address] [place] [address] Erythrocyte distribution width (RBC) [Ratio] 14.1 % Normal 11.7-14.4 [facility] Comment on above: Performed By: #### T ROP #### [facility] [address] [place] [address] Hematocrit (Bld) [Volume fraction] 32.4 % Low 34.1-44.9 [facility] Comment on above: Performed By: #### T ROP #### [place] [address] Hemoglobin (Bld) [Mass/Vol] 10.6 g/dL Low 11.2-15.7 [facility] Comment on above: Performed By: #### T ROP #### [place] [address] MCH (RBC) [Entitic mass] 30.7 pg Normal 25.6-32.2 [facility] Comment on above: Performed By: #### T ROP #### [place] [address] MCHC (RBC) [Mass/Vol] 32.7 % Normal 31.6-34.8 [facility] Comment on above: Performed By: #### T ROP #### [place] [address] MCV (RBC) [Entitic vol] 93.9 fL Normal 79.4-94.8 [facility] Comment on above: Performed By: #### T ROP #### [place] [address] Platelet mean volume (Bld) [Entitic vol] 11.3 fL Normal 9.4-12.3 [facility] Comment on above: Performed By: #### T ROP #### [place] [address] Platelets (Bld) [#/Vol] 298 thou/cmm Normal 182-369 [facility] Comment on above: Performed By: #### T ROP #### [place] [address] RBC (Bld) [#/Vol] 3.45 mil/cmm Low 3.93-5.22 [facility] Comment on above: Performed By: #### T ROP #### [facility] [address] [place], [place] [address] RDW SD 47.0 fl High 36.4-46.3 [facility] Comment on above: Performed By: #### T ROP #### [facility] [address] [place], [place] [address] WBC (Bld) [#/Vol] 9.47 thou/cmm Normal 3.98-10.04 [facility] Comment on above: Performed By: #### T ROP #### [facility] [address] [place], [place] [address] PLAN OF CAREon 01-08-2020 PLAN OF CARE HNO ID: [id number] Author: Massimo Evans (Pharmacist) Service: Pharmacy Author Type: Pharmacist Type: Plan of Care Filed: 01/08/2020 3:51 PM Note Text: MEDICATION HISTORY AND MEDICATION RECONCILIATION Patient Name:Jose Antonio Woodward : 1935 Source of history:Patient: Reliability of source: Patient knows medications well, she did not knew strengths of her medications but knows what she takes and her regimen very well, and Pharmacy records: Fill hx at [facility] (patient gets insulins filled at [facility] due to convenience they will mail these to her). Medication Nonadherence Identified: No barriers noted The above information represents the best possible medication history: Yes Reconciliation completed? 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 Amoxicillin stopped due to not appropriate therapy (see short term meds below). Insulins were held due to adjusting doses inpatient- currently ordered alternate doses. Discussed addition of eye ointment qhs with THIAGO Reza and alisson verbal order. [id number] Medication List Adjustments: Medications Added: Systane eye ointment -patient uses in both eyes qhs for chronic dry eye Medications Removed: Diabetes testing supplies were removed to clean up medication list Albuterol inhaler- per patient she does not believe she has this at home (was filled the day she filled amoxicillin for bronchitis but she did not pick it up) flonase- per patient she is not currently taking this medication Loratadine- per patient she is not currently taking this medication Short-Term Medications: Patient was on amoxicillin prior to admission for suspected bronchitis, she took 5/10 days of this. This was not continued on admission as her SOB was related to cardiac issues and not true infection. 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 Yes cholecalciferol, Vitamin D3, (VITAMIN D3) 1,250 mcg (50,000 unit) cap capsule Take 1 capsule by mouth two times a week. (ONE CAPSULE) FOR VITAMIN D DEFICIENCY Yes amoxicillin (AMOXIL) 875 mg tablet Take 1 tablet by mouth twice daily for 10 days. Yes insulin glargine (BASAGLAR KWIKPEN U-100 INSULIN) 100 unit/mL (3 mL) inpn Inject 11 Units subcutaneously every morning. Yes amLODIPine (NORVASC) 10 mg tablet Take 1 tablet by mouth once daily. Yes lisinopril (ZESTRIL, PRINIVIL) 40 mg tablet Take 1 tablet by mouth once daily. Yes carvedilol (COREG) 6.25 mg tablet Take 1 tablet by mouth twice daily with meals. Yes allopurinol (ZYLOPRIM) 100 mg tablet Take 1 tablet by mouth once daily. Yes clopidogrel (PLAVIX) 75 mg tablet Take 1 tablet by mouth once daily. Yes insulin aspart U-100 (NOVOLOG FLEXPEN U-100 INSULIN) 100 unit/mL (3 mL) inpn Take 8 units breakfast, 6 units lunch, and 8 units dinner Yes RESTASIS 0.05 % ophthalmic emulsion Use 1 Drop in both eyes twice daily. Yes [place]-3 Fatty Acids 1,250 mg cap Take 1 capsule by mouth once daily. Yes calcium carbonate 600 mg-cholecalciferol 400 units (CALCIUM 600 + D) 600 mg(1,500mg) -400 unit tab Take 1 tablet by mouth once daily. Yes blood sugar diagnostic(ASCENSIA CONTOUR TEST STRIPS) Test Blood sugar once daily 250.00, non insulin dep EXT [id number] MASSIMO EVANS, PHARMACIST January 08, 2020 3:41 PM Normal [facility] PROGRESSon 01-08-2020 PROGRESS HNO ID: [id number] Author: Jaylan Bedolla Service: Hospital Medicine Author Type: Physician Type: Progress Notes Filed: 01/08/2020 3:56 PM Note Text: DEPARTMENT OF HOSPITAL MEDICINE PROGRESS NOTE SERVICE DATE: 01/08/2020 SERVICE TIME: 3:56 PM Hospital Medicine/Primary Attending:Jaylan bedolla MD NIGHT AND WEEKEND COVERAGE: From 7am - 7pm, please call [phone] After 7pm, please call cross cover pager #[phone] Subjective INTERVAL HPI: Reports that she is doing well. No fever or chills. No chest pain. Remains on heparin gtt MEDICATIONS: Reviewed Objective PHYSICAL EXAM: BP 144/67 Pulse 98 Temp (Src) 98.2 (Oral) Resp 14 Ht 5' 3 (1.60m) Wt 165 lb 3.2 oz (74.9kg) SpO2 100% BMI 29.27 kg/(m2). O2 Therapy: Room Air Physical Exam Performed [...] to Hospital Short Left Forearm 20 Gauge 4 days Peripheral 01/04/20 1618 Short Right Antecubital 20 Gauge 3 days DATA: Diagnostic tests reviewed for today's visit: Assessment/Plan 1. ACS (acute coronary syndrome): Noted to have Multi vessel disease. Plan for CABG on 01/08, continue ASA and heparin 2. Hypertension Essential: On home medication Well controlled 3. Hyperlipidemia: on statin 4. 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 Nephrology following Hx of CHF. Not in exacerbation. Medication and Non-Pharmacologic VTE Prophylaxis/Anticoagula nts Anticoagulant AND Antiplatelet Medications (From admission, onward) Start Dose Route Frequency Ordered Stop 01/09/20 0800 heparin 3,000 Units in NaCl 0.9% 500 mL irrigation 3,000 Units IRRIGATION ONE TIME 01/08/20 0944 -- 01/03/20 1800 aspirin 81 mg chewable tab(s) (Order Panel) 81 mg ORAL DAILY 01/03/20 1759 -- 01/03/20 1800 heparin iv infusion (LOW DOSE ACS/NOMOGRAM) 25,000 units in NaCl 0.45% 250 mL PREMIX (Heparin Infusion + Rate Change Bolus) 0-30 mL/hr 0-3,000 Units/hr INTRAVENOUS CONTINUOUS 01/03/20 1759 01/09/20 0600 01/03/20 1800 vte non-pharmacologic prophylaxis - none indicated ([place]) 01/03/20 1800 vte current anticoag therapy ([place]) 01/03/20 1800 activity - mobilize patient ([place]) VTE Prophylaxis: VTE prophylaxis appropriate Disposition: Home Plan of care discussed with: Patient SIGNATURE: Chandan Tavarez MD PATIENT NAME: Concha Woodward DATE: January 08, 2020 TIME: 3:31 PM PAGER/CONTACT #: [phone] [facility] PROGRESS HNO ID: [id number] Author: Gatito Godinez Service: Nephrology Author Type: Physician Type: Progress Notes Filed: 01/08/2020 5:39 PM Note Text: [facility] Nephrology Progress Note Subjective/ INTERVAL HISTORY: We are seeing the patient for issues with SHA and New onset CHF Cr is better and holding now close to baseline SOB resolved No edema Noted plans for CABG sharita am planned All labs / data/ chart and interval events are noted BP has been stable No issues with urine output Lytes are better No s/o CHF Responding to current rx at this time No other new issues No change in the PFSH at this time ROS is (-) unless mentioned Objective/ 01/08/20 0002 01/08/20 0428 01/08/20 0605 01/08/20 0749 BP: (!) 116/49 129/53 133/64 Pulse: 77 75 74 Resp: 16 16 18 Temp: 37.5 ?C (99.5 ?F) 36.6 ?C (97.9 ?F) 36.7 ?C (98.1 ?F) TempSrc: Oral Oral Oral SpO2: 97% 95% 99% Weight: 74.9 kg (165 lb 3.2 oz) Height: 24HR INTAKE/OUTPUT: No intake or output data in the 24 hours ending 01/08/20 1001 Constitutional: Alert, awake, no apparent distress HEAD, EYES, ENT: ?No pallor. ?No cyanosis. ?No icterus. ?Mucous membranes of mouth ?were moist. NECK: ?Otherwise supple. ?Hard for me to see a jugular vein distention elevation. ?LUNGS: ?Clear to auscultation. ?No rales. CARDIOVASCULAR: ?S1, S2. ?No rubs or gallops. ABDOMEN: ?Soft, obese, nontender. ?Bowel sounds are heard. EXTREMITIES: ?No peripheral edema. SKIN: ?Otherwise warm and moist. PSYCH: ?Normal affect. ?Does not appear to be anxious, depressed, or agitated. Current Facility-Administered Medications Medication Dose Route Frequency - metoprolol tartrate (short acting) 25 mg tab(s) (LOPRESSOR) 25 mg ORAL q 12 H - hydrALAZINE 10 mg injection (APRESOLINE) 10 mg INTRAVENOUS q 6 H PRN - hydrOXYzine HCl 12.5 mg tab(s) (ATARAX) 12.5 mg ORAL q 8 H PRN - mupirocin 2 % ointment (BACTROBAN) TOPICAL [...] KWIKPEN) 8 Units SUBCUTANEOUS w MEALS - albuterol 2.5 mg /3 [...] mg tab(s) (ZETIA) 10 mg ORAL DAILY Data/ CBC, Coags, BMP, Mg, Phos Recent Labs 01/08/20 0435 01/07/20 0615 01/06/20 0545 WBC 9.47 9.70 9.05 HB 10.6* 10.5* 10.9* HCT 32.4* 33.1* 32.7* PLT 298 307 301 APTT 54.0* 58.6* 56.7* NA 141 141 139 K 3.7 3.4* 3.7 CHLOR 113* 114* 111* CO2 22 22 20* BUN 35* 41* 48* CREAT 1.44* 1.46* 1.87* GLUC 134* 126* 148* CA 8.8 8.6 8.2* P -- -- 3.4 Assessment/ 84 year old female who presents with ? 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 Paxton Godinez MD [facility] PROGRESS HNO ID: [id number] Author: Yanet Rivera Service: Thoracic Surgery Author Type: Physician Type: Progress Notes Filed: 01/08/2020 9:48 AM Note Text: Patient seen this AM. Has no c/o, questions answered, and she wishes to proceed with increased risk cabg in AM. P-OR Sun 0800. [facility] ALLIED HEALTHon 01-07-2020 ALLIED HEALTH HNO ID: [id number] Author: Isidro (Student) Tor Duenas Service: Spiritual Care Author Type: Student Type: Allied Health Filed: 01/07/2020 10:54 AM Note Text: SPIRITUALCARE Spiritual Care Visit- Brief Note Name: Concha Woodward Date: January 07, 2020 Notes: Patient requested registered account administrator visit for prayer prior to surgery this Sunday. Prayed with patient. Patient appreciative. General Road Supervisor Signature: Isidro Yulissa To contact the [facility] Department: Please call [phone] or Page the On-Call General Road Supervisor at pager [phone] Thank you for the opportunity to be of service. This is an electronically created document. IF PRINTED, PLEASE DO NOT REMOVE FROM THE CHART OR MODIFY PRINTED COPY. Normal [facility] Activated PTTon 01-07-2020 aPTT Coag (Bld) [Time] 58.6 s High 23.0-32.4 [facility] Comment on above: Result Comment: Unfr actionated [...] laboratory APTT reagent in use throughout the [facility]. Performed By: #### T ROP #### [place] [address] Basic Panelon 01-07-2020 Creatinine [Mass/Vol] 1.46 mg/dL High 0.51-0.95 [facility] Comment on above: Result Comment: Use of this assay is not recommended for patients undergoing treatment with phenindione, due to the potential for falsely depressed results. Performed By: #### T ROP #### [address] [address] Urea nitrogen [Mass/Vol] 41 mg/dL High 7-18 [facility] Comment on above: Performed By: #### T ROP #### [address] [address] Anion gap [Moles/Vol] 8 mmol/L Normal 8-16 [facility] Comment on above: Performed By: #### T ROP #### [address] [address] CO2 [Moles/Vol] 22 mmol/L Normal 21-32 [facility] Comment on above: Performed By: #### T ROP #### [facility] [address] [place], [place] [address] Calcium [Mass/Vol] 8.6 mg/dL Normal 8.5-10.1 [facility] Comment on above: Performed By: #### T ROP #### [facility] [address] [place], [place] [address] Glucose [Mass/Vol] 126 mg/dL High 70-99 [facility] Comment on above: Performed By: #### T ROP #### [facility] [address] [place], [place] [address] Chloride [Moles/Vol] 114 mmol/L High 98-107 [facility] Comment on above: Performed By: #### T ROP #### [facility] [address] [place] [address] Potassium [Moles/Vol] 3.4 mmol/L Low 3.5-5.1 [facility] Comment on above: Performed By: #### T ROP #### [facility] [address] [place] [address] Sodium [Moles/Vol] 141 mmol/L Normal 136-145 [facility] Comment on above: Performed By: #### T ROP #### [facility] [address] [place] [address] CASE MANAGEMon 01-07-2020 CASE MANAGEM HNO ID: [id number] Author: Patience Ochoa) RITA Christy Service: Care Management Author Type: Registered Nurse Type: Care Mgt Progress Note Filed: 01/07/2020 11:25 AM Note Text: CARE MANAGEMENT PROGRESS NOTE SERVICE DATE: 01/07/2020 SERVICE TIME: 11:24 AM LOS: 4 days Spoke with pt at the bedside. Plan CABG on Sunday. Pt states that she would like [facility] if rehab is appropriate post op. Pt refused lists. Will follow clinical progress. SIGNATURE: Patience Christy RN PATIENT NAME: Concha Woodward DATE: January 07, 2020 TIME: 11:23 AM PAGER/CONTACT #: [phone] Normal [facility] CONSULT PROGon 01-07-2020 CONSULT PROG HNO ID: [id number] Author: Ann Jonahadán Service: Endocrinology Author Type: Physician Type: Consult Progress Note Filed: 01/07/2020 2:37 PM Note Text: ENDOCRINOLOGY CONSULT PROGRESS NOTE SERVICE DATE: 01/07/2020 SERVICE TIME: 1:30pm Subjective INTERVAL HPI: followed for DM type 2 on insulin MDI; can not tolerate metformin due to diarrhea; has CAD; tentatively CABG on 01/09/2020 She was admitted there with chest pain and was found to have coronary artery disease. Patient has history of angioplasty 30 years ago. ?H/o CAD and remote FL now admitted with NSTEMI who is found to have severe MV CAD and ischemic CM with EF 30%, no CHF, in a setting of DM, HTN, HLD, CKD, remote CVA. Regarding diabetes, patient has [...] weight has been stable. DIET HEART HEALTHY DIET NPO Recent Labs 01/07/20 1146 01/07/20 0724 01/07/20 0615 01/06/20201701/06/20 0545 01/05/20 0354 GLUC -- -- 126* -- -- 148* -- 145* GLUCOSEMETER 307* 155* -- 130* < > -- < > -- < > = values in this interval not displayed. Current Facility-Administered Medications Medication Dose Route Frequency - albuterol 2.5 mg /3 mL (0.083 [...] KWIKPEN) 8 Units SUBCUTANEOUS w MEALS - hydrOXYzine HCl 12.5 mg tab(s) (ATARAX) 12.5 mg ORAL q 8 H PRN - metoprolol tartrate (short acting) 25 mg tab(s) (LOPRESSOR) 25 mg ORAL q 12 H - hydrALAZINE 10 mg injection (APRESOLINE) 10 mg INTRAVENOUS q 6 H PRN - [START ON 01/09/2020] acetaminophen 1,000 mg tab(s) (TYLENOL) 1,000 mg ORAL ONCE Objective PHYSICAL EXAM: GENERAL: Alert, no distress, [...] motor function, and cranial nerves III-XII BP 112/49 Pulse 80 Temp (Src) 97.3 (Oral) Resp 16 Ht 5' 3 (1.60m) Wt 164 lb 9.6 oz (74.7kg) SpO2 98% BMI 29.16 kg/(m2). O2 Therapy: Room Air DATA: Diagnostic tests reviewed for today's visit: Most recent labs and imaging results. Assessment/Plan Diabetes mellitus type 2; HbA1c 8.4; on lantus 12 units daily and humalog 8 units qac tid plus correction; cont rx SHA/CKS stage III; S creat 1.46(1.8)(2.1) (baseline 1.3) ACS (acute coronary syndrome) (HCC) POA: Yes Assessment AND Plan: EF 30%; awaiting CABG tentatively 01/09/2020 SIGNATURE: Ann Echeverria MD PATIENT NAME: Concha Woodward DATE: January 07, 2020 TIME: 2:35 PM PAGER: [phone] Normal [facility] Hemogram/Diffon 01-07-2020 Abs Immature Grans 0.07 thou/cmm High 0.00-0.05 [facility] Comment on above: Performed By: #### T ROP #### [place] [address] Abs Neut (ANC) 4.35 thou/cmm Normal 1.56-6.13 [facility] Comment on above: Performed By: #### T ROP #### [facility] [address] [place], [place] [address] Abs. Baso 0.06 thou/cmm Normal 0.01-0.08 [facility] Comment on above: Performed By: #### T ROP #### [facility] [address] [place], [place] [address] Abs. [place] 0.85 thou/cmm High 0.27-0.70 [facility] Comment on above: Performed By: #### T ROP #### [facility] [address] [place], [place] [address] Basophils/100 WBC (Bld) 0.6 % Normal [facility] Comment on above: Performed By: #### T ROP #### [address] [address] Eosinophils (Bld) [#/Vol] 0.12 thou/cmm Normal 0.00-0.31 [facility] Comment on above: Performed By: #### T ROP #### [facility] [address] [place], [place] [address] Eosinophils/100 WBC (Bld) 1.2 % Normal [facility] Comment on above: Performed By: #### T ROP #### [address] [address] Immature Grans 0.70 % Normal [facility] Comment on above: Performed By: #### T ROP #### [facility] [address] [place], [place] [address] Lymphocytes (Bld) [#/Vol] 4.26 thou/cmm High 1.18-3.74 [facility] Comment on above: Performed By: #### T ROP #### [facility] [address] [place], [place] [address] Lymphocytes/100 WBC (Bld) 43.9 % Normal [facility] Comment on above: Performed By: #### T ROP #### [address] [address] Monocytes/100 WBC (Bld) 8.8 % Normal [facility] Comment on above: Performed By: #### T ROP #### [facility] [address] [place] [address] Seg Neutrophil 44.8 % Normal [facility] Comment on above: Performed By: #### T ROP #### [facility] [address] [place] [address] Erythrocyte distribution width (RBC) [Ratio] 13.7 % Normal 11.7-14.4 [facility] Comment on above: Performed By: #### T ROP #### [facility] [address] [place] [address] Hematocrit (Bld) [Volume fraction] 33.1 % Low 34.1-44.9 [facility] Comment on above: Performed By: #### T ROP #### [facility] [address] [place] [address] Hemoglobin (Bld) [Mass/Vol] 10.5 g/dL Low 11.2-15.7 [facility] Comment on above: Performed By: #### T ROP #### [facility] [address] [place] [address] MCH (RBC) [Entitic mass] 29.7 pg Normal 25.6-32.2 [facility] Comment on above: Performed By: #### T ROP #### [facility] [address] [place] [address] MCHC (RBC) [Mass/Vol] 31.7 % Normal 31.6-34.8 [facility] Comment on above: Performed By: #### T ROP #### [facility] [address] [place] [address] MCV (RBC) [Entitic vol] 93.5 fL Normal 79.4-94.8 [facility] Comment on above: Performed By: #### T ROP #### [facility] [address] [place] [address] Platelet mean volume (Bld) [Entitic vol] 11.3 fL Normal 9.4-12.3 [facility] Comment on above: Performed By: #### T ROP #### [facility] [address] [place] [address] Platelets (Bld) [#/Vol] 307 thou/cmm Normal 182-369 [facility] Comment on above: Performed By: #### T ROP #### [facility] [address] [place] [id number] RBC (Bld) [#/Vol] 3.54 mil/cmm Low 3.93-5.22 [facility] Comment on above: Performed By: #### T ROP #### [facility] [address] [place] [address] RDW SD 46.5 fl High 36.4-46.3 [facility] Comment on above: Performed By: #### T ROP #### [facility] [address] [place] [address] WBC (Bld) [#/Vol] 9.70 thou/cmm Normal 3.98-10.04 [facility] Comment on above: Performed By: #### T ROP #### [place] [address] NUTRITIONon 01-07-2020 NUTRITION HNO ID: [id number] Author: Kinjal Velarde Service: Nutrition Therapy Author Type: Registered Dietitian Type: Nutrition Filed: 01/07/2020 2:04 PM Note Text: NUTRITION THERAPY INITIAL ASSESSMENT SERVICE DATE: 01/07/2020 SERVICE TIME: 8:36 AM Nutrition Assessment: Recommended Malnutrition Diagnosis: No Malnutrition Identified Nutrition Diagnosis: Problem: Increased nutrient needs Related to: (Increased demand ) As evidenced by: Procedure/surgery;Medic al condition Estimated kilocalorie needs: 5853-2293 Calorie Calculation Method: 25-30 kcals/kg Estimated protein needs (grams): 52-78 Grams protein determined by: 1.0-1.5 g/kg Care Plan: Continue current diet Supplements: Impact AR Monitor and Evaluation: Meet greater than 75% of estimated needs;Monitor labs, I/Os, vital signs, weight;Monitor fluid/electrolyte balance Discharge Recommendations: Diet;Oral Supplements Diet: Heart healthy Oral Supplements: Impact AR at least 5 days post-op. ------ Reason for Assessment: YAMILET HPI: 84 year old female?PMH T2DM, CAD s/p PCI 30 years ago, CVA on Plavix, CKD. Admitted s/p STEMI. Plan for CABG. Nephrology following for SHA. Noted, new on-set CHF. Intake History: Nutrition Intake Prior to Admission: Greater than 75% estimated energy needs greater than or equal to 3 months over: Pt reports eating well and good appetite. UBW stable at 165 lbs. Explained ERAS - agreeable. No nutritional concerns. Current Diet: DIET HEART HEALTHY DIET NPO Anthropometrics: Height: 160 cm (5' 3) Weight: 74.7 kg (164 lb 9.6 oz) Dosing Weight: 52 kg (114 lb 10.2 oz) Usual Weight: 75 kg (165 lb 5.5 oz) Body mass index is 29.16 kg/m?. Overweight Weight change percentage over time: Insignficant Last Wt 01/07/20 : 74.7 kg (164 lb 9.6 oz) 12/30/19 : 74.4 kg (164 lb) 11/03/19 : 76.7 kg (169 lb) 09/02/19 : 75.3 kg (166 lb) 04/28/19 : 76.7 kg (169 lb) 04/11/19 : 76.7 kg (169 lb) 12/23/18 : 76.7 kg (169 lb) 11/11/18 : 75.3 kg (166 lb) 11/03/18 : 75.3 kg (166 lb) 10/04/18 : 75.2 kg (165 lb 12.8 oz) Physical Exam: Subcutaneous fat loss: No fat loss Muscle loss: No muscle loss Potential micronutrient deficiency: No deficiency identified Edema/Ascites: No edema GI Symptoms: None Functional Status: No Change Potential Signs of Inflammation: Hyperglycemia;Hypoalbum inemia;Chronic condition;Gladys-operativ e period SIGNATURE: Kinjal Velarde RD, LD PATIENT NAME: Concha Woodward DATE: January 07, 2020 TIME: 8:36 AM PAGER: [phone] [facility] PLAN OF CAREon 01-07-2020 PLAN OF CARE HNO ID: [id number] Author: Melisa Reza CNP Service: Cardiovascular Surgery Author Type: Nurse Practitioner Type: Plan of Care Filed: 01/07/2020 11:16 AM Note Text: CARDIOTHORACIC SURGERY PLAN OF CARE SERVICE DATE: January 07, 2020 SERVICE TIME: 11:14 AM Patient is visited today. I offered the cardiac surgery binder with content reviewed briefly with patient. I went over post-op recovery expectations (ICU, [id number] then home) with patient. For pre-op lung function optimization, patient is offered IS. Nutrition consult is placed per ERAS protocol. Pre-op check list review performed: only missing TANDS. Communicated with nursing staff to make sure it is done tomorrow for surgery on Monday 01/08. Pre-op preparation orders placed, including: NPO, meds(BB, ASA, Tylenol ), heparin stop time, CHG bath. MRSA result reviewed and treatment order reviewed, blood products ordered x2. Questions and concerns are addressed and emotional support provided. Patient has no questions at this point. I spent 30 minutes in the visit, with more than 50% of the total [id number] time of the visit in counseling / coordination of care. Melisa Reza APRN.CNP [facility] PROGRESSon 01-07-2020 PROGRESS HNO ID: [id number] Author: Cesar Burroughs Service: Nephrology Author Type: Physician Type: Progress Notes Filed: 01/07/2020 6:33 PM Note Text: CONSULT PROGRESS NOTE NEPHROLOGY SERVICE Subjective INTERVAL HISTORY: We are seeing the patient for issues with SHA and New onset CHF Cr is better LUDY likely SOB resolved No edema All [...] Facility-Administered Medications Medication Dose Route Frequency - albuterol 2.5 mg /3 mL (0.083 [...] KWIKPEN) 8 Units SUBCUTANEOUS w MEALS - hydrOXYzine HCl 12.5 mg tab(s) (ATARAX) 12.5 mg ORAL q 8 H PRN - metoprolol tartrate (short acting) 25 mg tab(s) (LOPRESSOR) 25 mg ORAL q 12 H - hydrALAZINE 10 mg injection (APRESOLINE) 10 mg INTRAVENOUS q 6 H PRN - [START ON 01/09/2020] acetaminophen 1,000 mg tab(s) (TYLENOL) 1,000 mg ORAL ONCE PHYSICAL EXAM: BP (!) 123/49 Pulse 71 Temp 36.6 ?C (97.9 ?F) (Oral) Resp 16 Ht 160 cm (5' 3) Wt 74.7 kg (164 lb 9.6 oz) SpO2 100% BMI 29.16 kg/m? No intake or output data in the 24 hours ending 01/07/20 1831 . HEAD, EYES, ENT: No pallor. No [...] tests reviewed for today's visit: Recent Labs 01/07/20 0615 CO2 22 Specific [place], Ur Date Value Ref Range Status 12/25/2019 [...] 0 - 5 /HPF Final Recent Labs 01/07/20 0615 01/06/20 0545 01/05/20 0354 01/04/20 0915 01/03/20 2355 NA 141 139 137 134* 134* K 3.4* 3.7 3.2* 4.2 4.5 CHLOR 114* 111* 106 103 105 CO2 22 20* 23 21 20* BUN 41* 48* 46* 38* 37* CREAT 1.46* 1.87* 2.16* 1.51* 1.43* GLUC 126* 148* 145* 284* 202* ANION 8 12 11 14 14 CA 8.6 8.2* 8.6 9.0 8.8 P -- 3.4 -- 3.0 -- Recent Labs 01/07/20 0615 01/06/20 0545 01/05/20 0354 WBC 9.70 9.05 11.82* HB 10.5* 10.9* 12.0 HCT 33.1* 32.7* 35.9 PLT 307 301 335 Assessment/Plan 84 year old female who presents with IMPRESSION: SHA +ATN from LUDY CKD 3 STEMI Acute systolic CHF 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 Reccomendations Cr is better Follow the hco3 ( improved as the SHA resolves ) Will not recommend CABG until cr settles Cr baseline Should be ok for CABG Now on Sunday 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 and agreeable to procced Avoid all renal toxins Avoid BP shifts repalce K Trend the cr Avoid all renal toxins We will follow closely Normal [facility] PROGRESS HNO ID: [id number] Author: Jaylan Bedolla Service: Hospital Medicine Author Type: Physician Type: Progress Notes Filed: 01/07/2020 3:33 PM Note Text: DEPARTMENT OF HOSPITAL MEDICINE PROGRESS NOTE SERVICE DATE: 01/07/2020 SERVICE TIME: 3:30 PM Hospital Medicine/Primary Attending:Jaylan bedolla MD NIGHT AND WEEKEND COVERAGE: From 7am - 7pm, please call [phone] After 7pm, please call cross cover pager #[phone] Subjective INTERVAL HPI: Reports that she is doing well. No fever or chills. No chest pain. Remains on heparin gtt MEDICATIONS: Reviewed Objective PHYSICAL EXAM: BP 112/49 Pulse 80 Temp (Src) 97.3 (Oral) Resp 16 Ht 5' 3 (1.60m) Wt 164 lb 9.6 oz (74.7kg) SpO2 98% BMI 29.16 kg/(m2). O2 Therapy: Room Air Physical Exam Performed [...] to Hospital Short Left Forearm 20 Gauge 3 days Peripheral 01/04/20 1618 Short Right Antecubital 20 Gauge 2 days DATA: Diagnostic tests reviewed for today's visit: Assessment/Plan 1. ACS (acute coronary syndrome): Noted to have Multi vessel disease. Plan for CABG on 01/08, continue ASA and heparin 2. Hypertension Essential: On home medication Well controlled 3. Hyperlipidemia: on statin 4. 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 Nephrology following Hx of CHF. Not in exacerbation. Medication [...] mL/hr 0-3,000 Units/hr INTRAVENOUS CONTINUOUS 01/03/20 1759 01/09/20 0600 01/03/20 1800 vte non-pharmacologic prophylaxis - none indicated ([place]) 01/03/20 1800 vte current anticoag therapy ([place]) 01/03/20 1800 activity - mobilize patient ([place]) VTE Prophylaxis: VTE prophylaxis appropriate Disposition: Home Plan of care discussed with: Patient SIGNATURE: Chandan Tavarez MD PATIENT NAME: Concha Woodward DATE: January 07, 2020 TIME: 3:31 PM PAGER/CONTACT #: [phone] [facility] PROGRESS HNO ID: [id number] Author: Yanet Rivera Service: Thoracic Surgery Author Type: Physician Type: Progress Notes Filed: 01/07/2020 10:37 AM Note Text: Patient seen again this AM and evaluated/examined. Findings of preop W/U and eval so far all reviewed with her. [place] echo reviewed with cardiology here as well with MR 1-2+ but not moderate. Patient also d/w [place] originally accepting surgeon as well. The substantially increased operative risk for mortality and morbidity with near certainty of requiring blood transfusions all d/w her in detail. Surgical Discussion: I have discussed the benefits, risks, indications, and alternatives to surgery with the patient. Risks discussed include but are not limited to infection, bleeding, cardiac dysrhythmias, myocardial infarction, stroke, , blood clots, pneumonia, wound complications, wound infection, blood transfusion with associated risks of AIDS or Hepatitis, and the occasional need for reoperation for bleeding or other complications. Expected OR, ICU, hospitalization, and home recovery times were discussed. She states she understands, has no further questions and would like to proceed Sunday as tentatively scheduled. Normal [facility] RBC Productson 01-07-2020 Xmatch Unit 1 see below [facility] Comment on above: Result Comment: Comp atible Performed By: #### T ROP #### [facility] [address] [place] [address] Xmatch Unit 2 see below [facility] Comment on above: Result Comment: Comp atible Performed By: #### T ROP #### [facility] [address] [place] [address] Type and Screenon 01-07-2020 ABO group Nom (Bld) O Normal [facility] Comment on above: Performed By: #### T ROP #### [facility] [address] [place] [address] Comment See Below Normal [facility] Comment on above: Result Comment: Scre en &/or Xmatch expires in 3 days at 12 midnight. Redraw patient at that time. Performed By: #### T ROP #### [place] [address] RH Type Positive Normal [facility] Comment on above: Performed By: #### T ROP #### [place] [address] Activated PTTon 01-06-2020 aPTT Coag (Bld) [Time] 56.7 s High 23.0-32.4 [facility] Comment on above: Result Comment: Unfr actionated [...] laboratory APTT reagent in use throughout the [facility]. Performed By: #### T ROP #### [place] [address] CONSULT PROGon 01-06-2020 CONSULT PROG HNO ID: [id number] Author: Ann Echeverria Service: Endocrinology Author Type: Physician Type: Consult Progress Note Filed: 01/06/2020 7:17 PM Note Text: ENDOCRINOLOGY CONSULT PROGRESS NOTE SERVICE DATE: 01/06/2020 SERVICE TIME: 8:40 AM Subjective INTERVAL HPI: followed for DM type 2 on insulin MDI; can not tolerate metformin due to diarrhea; has CAD; tentatively CABG on 01/09/2020 She was admitted there with chest pain and was found to have coronary artery disease. Patient has history of angioplasty 30 years ago. ?H/o CAD and remote [place] now admitted with NSTEMI who is found [...] been stable. DIET HEART HEALTHY Recent Labs 01/06/20 1628 01/06/20 1132 01/06/20 0736 01/06/20 0545 01/05/20 0354 01/04/20 0915 GLUC -- -- -- 148* -- 145* -- 284* GLUCOSEMETER 182* 151* 186* -- < > -- < > -- < [...] KWIKPEN) 8 Units SUBCUTANEOUS w MEALS - hydrOXYzine HCl 12.5 mg tab(s) (ATARAX) 12.5 mg ORAL q 8 H PRN Objective PHYSICAL EXAM: GENERAL: Alert, no distress, [...] motor function, and cranial nerves III-XII BP 125/51 Pulse 72 Temp (Src) 98.1 (Oral) Resp 18 Ht 5' 3 (1.60m) Wt 168 lb 10.4 oz (76.5kg) SpO2 98% BMI 29.88 kg/(m2). O2 Therapy: Room Air DATA: Diagnostic tests reviewed for today's visit: Most recent labs and imaging results. Assessment/Plan Diabetes mellitus type 2; HbA1c 8.4; on lantus 12 units daily and humalog 8 units qac tid plus correction; cont rx SHA/CKS stage III; S creat 1.8(2.1) (baseline 1.3) ACS (acute coronary syndrome) (HCC) POA: Yes Assessment AND Plan: EF 30%; awaiting CABG tentatively 01/09/2020 SIGNATURE: Ann Echeverria MD PATIENT NAME: Concha Woodward DATE: January 06, 2020 TIME: 1:54 PM PAGER: [phone] Normal [facility] CONSULT PROG HNO ID: [id number] Author: Melisa Harkins) THIAGO Reza Service: Cardiovascular Surgery Author Type: Nurse Practitioner Type: Consult Progress Note Filed: 01/08/2020 10:58 AM Note Text: CTVS Surgery Pre-Op Open Heart Check List Patient Info: Concha Woodward 1935 84 year old Bactrim [Sulfamethoxazole-Trime thoprim]; Codeine; Prednisone; Statins [Ntuxdpp-Zbo-Uhg Reductase Inhibitors]; Ultram [Tramadol Hcl] HPI: This is a 84 years old woman who was transferred from [facility] after presenting with resting chest pain [...] later time), STEMI protocol was activated in [place] and patient was given Hep Gtt and Brilinta prior undergoing HC. HC revealed severe MV CAD. [place] on showed: Normal LV size with moderate segmental systolic dysfunction, EF 30%. 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 There is also a 2+MR (no valvular mechanism mentioned) noted without other valvular lesions mentioned. She was recommended to be transferred to [facility] for CABG evaluation. This is a 84 yof who is found to have NSTEMI with PMH of CAD, [place] s/p angioplasty (30 yrs ago), T2DM on insulin, HTN, HLD, CVA 5 yrs ago (no known etiology) with mild left side deficit residual complicated with occasional falls, and CKD 2-3. She also has an intracranial meningioma s/p gamma knife (this was dx in 10/2008 via MRI to evaluate DZ. GKRS was 08/14/2013), and follows physician up at [facility] with surveillance brain scan now tapered down to every 4 years as the size of the meningioma has been reducing. She is a lifelong nonsmoker without no known COPD, no CHF or cardiac arrhythmia and known to patient. She denies recurrence FL since 32 yo ago and has not [...] cancers. FH:+CAD in both parents, both from [place] in 70-80s. SH: lifelong non smoker, no drug/etoh use. Last set of vitals: BP 121/63 Pulse 80 Temp 36.7 ?C (98.1 ?F) (Oral) Resp 18 Ht 160 cm (5' 3) Wt 76.5 kg (168 lb 10.4 oz) SpO2 98% BMI 29.88 kg/m? Wt: 74.4 kg (164 lb) BMI: 29.05 kg/(m2) Procedure: CABG Diagnosis: ACS Date of Procedure: 01/08 STS Risk Score: 8% CARE TEAM: Cardiac Surgeon: Dr. Rivera Pot Pusher: Dr. Noel PCP: Dr. Negro Other Providers: [email or web address] Pre-Op Testing: LABS: CHEMISTRY Troponin I (ng/ml) Date Value 01/03/2020 33.900 01/03/2020 45.800 01/03/2020 33.700 Sodium (mEq/L) Date Value 01/06/2020 139 01/05/2020 137 01/04/2020 134 Chloride (mEq/L) Date Value 01/06/2020 111 01/05/2020 106 01/04/2020 103 CO2 (mEq/L) Date Value 01/06/2020 20 01/05/2020 23 01/04/2020 21 BUN (mg/dL) Date Value 01/06/2020 48 01/05/2020 46 01/04/2020 38 Creatinine (mg/dL) Date Value 01/06/2020 1.87 01/05/2020 2.16 01/04/2020 1.51 Glucose (mg/dL) Date Value 01/06/2020 148 01/05/2020 145 01/04/2020 284 Phosphorus (mg/dL) Date Value 01/06/2020 3.4 01/04/2020 3.0 Protein, Total (g/dL) Date Value 12/25/2019 6.9 08/29/2019 6.9 03/13/2018 6.3 Calcium (mg/dL) Date Value 01/06/2020 8.2 01/05/2020 8.6 01/04/2020 9.0 Bilirubin, Total (mg/dL) Date Value 12/25/2019 0.3 08/29/2019 0.3 03/13/2018 0.4 Alkaline Phosphatase (U/L) Date Value 12/25/2019 71 08/29/2019 85 03/13/2018 77 ALT (U/L) Date Value 12/25/2019 15 08/29/2019 12 03/13/2018 16 AST (U/L) Date Value 12/25/2019 16 08/29/2019 12 03/13/2018 20 Anion Gap (no units) Date Value 01/06/2020 12 01/05/2020 11 01/04/2020 14 { Lipid Panel Cholesterol, Total Date Value Ref Range Status 01/03/2020 208 (H) 0 - 199 mg/dL Final Comment: <200 Desirable 200-240 Borderline >240 High HDL Cholesterol Date Value Ref Range Status 01/03/2020 42 >40 mg/dL Final LDL Cholesterol Date Value Ref Range Status 04/22/2019 125 (H) <100 mg/dL Final Comment: <100 mg/dL, Optimal 100-129 mg/dL, Near optimal/above optimal 130-159 mg/dL, Borderline high 160-189 mg/dL, High >189 mg/dL, Very high Secondary prevention optimal LDL Cholesterol levels are recommended to be < 70 mg/dL LDL Calculated Date Value Ref Range Status 01/03/2020 99 mg/dL Final Comment: No CAD and with fewer than 2 CAD risk factors <160 mg/dL No CAD but with 2 or more CAD risk factors <130 mg/dL Definite CAD or other atherosclerotic disease <100 mg/dL Triglyceride Date Value Ref Range Status 01/03/2020 334 (H) 0 - 149 mg/dL Final Comment: < 200 Desirable Result invalid if not a fasting specimen. NT Pro BNP NT Pro BNP Date Value Ref Range Status 01/03/2020 9,817 pg/ml Final Comment: Normal Reference Range: Patients <75 yrs old <125pg/ml Patients >=75 yrs old <450 pg/ml ENDOCRINE Hemoglobin A1C (%) Date Value 01/03/2020 8.4 TSH Date Value Ref Range Status 01/04/2020 2.180 0.358 - 3.740 uIU/mL Final HEMATOLOGY RBC (mil/cmm) Date Value 01/06/2020 3.56 01/05/2020 3.98 01/03/2020 4.03 Hemoglobin (g/dL) Date Value 04/11/2019 12.2 04/19/2018 12.4 04/23/2017 13.0 HGB (g/dL) Date Value 01/06/2020 10.9 01/05/2020 12.0 01/03/2020 12.4 Hematocrit (%) Date Value 01/06/2020 32.7 01/05/2020 35.9 01/03/2020 36.0 WBC (thou/cmm) Date Value 01/06/2020 9.05 01/05/2020 11.82 01/03/2020 11.96 Platelet Count (thou/cmm) Date Value 01/06/2020 301 01/05/2020 335 01/03/2020 333 COAGULATION Prothrombin Time Date Value Ref Range Status 01/03/2020 10.2 9.7 - 13.0 sec Final INR Date Value Ref Range Status 01/03/2020 0.94 0.90 - 1.30 Final Comment: Vitamin K Antagonist (VKA) Therapeutic Range: INR 2 to 3 (Target INR of 2.5) Note: For patients treated with VKA drugs, such as warfarin, the [place] [employer] 2012 Guideline recommends [...] GH, et al. Chest 2012; 141:7S-47S Tomi RA et al. [facility] 2017; 70: 252-289 Anemia Evaluation: Anemic: No Accept Blood: Yes Blood Conservation Committee: No Ferritin: 205.9 FE+TIBC: 78, 292 Fe Sat: 27% FOBT: NA Anemia Treatment: NA UA pH, Urine Date Value Ref Range Status 12/25/2019 6.0 4.5 - 8.0 Final Specific [place], Ur Date Value Ref Range Status 12/25/2019 [...] 65.5 (H) 0.0 - 11.9 mg/dL Final Urobilinogen Date Value Ref Range Status 12/25/2019 Normal Normal Final Nitrites Date Value Ref Range Status 12/25/2019 Negative Negative Final Leukest Date Value Ref Range Status 12/25/2019 Negative Negative Final WBC, Urine Date Value Ref Range Status 12/25/2019 0-5 0 - 5 /HPF Final Type AND Screen: Results for MAYURI WOODWARD I ( ) as of 01/08/2020 10:53 Ref. Range 01/07/2020 12:42 ABO Group Unknown O RH Type Unknown Positive Antibody Screen Latest Ref Range: NEGATIVE NEGATIVE Blood Bank Comment Unknown See Below Xmatch Unit 1 Unknown see below Xmatch Unit 2 Unknown see below RBC Cross match: 2 units MRSA Screen: Recent Labs 01/03/20 1825 MRSA No MRSA detected. Chronic Lung Disease: No FEVI: 86%. DLCO: NA ABG: NA STACIA: No IMAGING/PROCEDURES CXR: SEE CT CHEST Cardiac Catheterization 01/03/2020: LM 30% Stenosis LAD: ostial LAD: 80% STENOSIS , MID LAD 60-70% stenosis CX: ostial cx 70%, mid CX 80% stenosis RCA: prox RCA 80% STENOSIS; distal RCA 80-90%; TR PLV:80-90% stenosis 2D Echo 01/03/2020: Left ventricle: Normal LV size. Moderate segmental systolic dysfunction. Estimated ejection fraction is 30%. Diastolic function is intermediate. Posterior?basal: Hypokinetic. Inferiorly?basal: Akinetic. Basal inferoseptal: Akinetic. Mid anterior: Hypokinetic. The?lateral: Hypokinetic. Midposterior: Akinetic. Mid?inferior: Akinetic. Mid?inferior septal: Akinetic. Anterior [place]: Hypokinetic. Inferior [place]: Dyskinetic. Lateral [place]: Hypokinetic. Septal apex: Dyskinetic. Right ventricle: Normal RV size. Normal systolic function. Atrial: The left atrium is mildly enlarged. Normal right atrium. No Doppler evidence for ASD. Mitral valve There is no mitral annular calcification. Normal mitral valve. Moderate 2+ mitral valve insufficiency. Tricuspid valve: Normal tricuspid valve. Trivial tricuspid valve insufficiency. Unable to estimate RV systolic pressure/pulmonary artery pressure due to technical difficulty study. Aortic valve Trisinus/trileaflet aortic valve. Mild focal aortic valve calcification Pulmonic valve The pulmonic valve is not well visualized. Great vessels Normal size aortic root. Pericardium/pleural No pericardial effusion. 5 Meter Walk Test: ASSESSMENT: 5 Meter Walk Test 5 Meter Walk Test Completed: Yes Trial 1 # of Seconds: 8.28 Trial 1 Assistive Device: IV Pole Trial 2 # of Seconds: 10.38 Trial 2 Assistive Device: IV Pole Trial 3 # of Seconds: 9.71 Trial 3 Assistive Device: IV Pole OPTIONAL TESTINGS: Carotid U/S: IMPRESSION There is a significant amount of [...] DOS: yes Neurontin 200 mg DOS: No PAWEL/ARB: Stop 24 hours preop No Last dose [...] Nephrology Yes Vascular surgery No Other No Melisa Reza APRN.CNP Normal [facility] CONSULT PROG HNO ID: [id number] Author: Melisa Harkins) THIAGO Reza Service: Cardiovascular Surgery Author Type: Nurse Practitioner Type: Consult Progress Note Filed: 01/06/2020 1:31 PM Note Text: CARDIOTHORACIC SURGERY POSTOP PROGRESS NOTE SERVICE DATE: 01/06/2020 SERVICE TIME: 12:23 PM Subjective S/P SURGERY: Procedure(s) (LRB): DATE OF SURGERY: 01/09/2020 LOS: 3 HPI: This is a 84 years old woman who was transferred from [facility] after presenting with resting chest pain [...] later time), STEMI protocol was activated in [place] and patient was given Hep Gtt and Brilinta prior undergoing HC. HC revealed severe MV CAD. Echo performed in [place] on showed: Normal LV size with moderate segmental systolic dysfunction, EF 30%. 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 There is also a 2+MR (no valvular mechanism mentioned) noted without other valvular lesions mentioned. She was recommended to be transferred to [facility] for CABG evaluation. This is a 84 yof who is found to have NSTEMI with PMH of CAD, [place] s/p angioplasty (30 yrs ago), T2DM on insulin, HTN, HLD, CVA 5 yrs ago (no known etiology) with mild left side deficit residual complicated with occasional falls, and CKD 2-3. She also has an intracranial meningioma s/p gamma knife (this was dx in 10/2008 via MRI to evaluate DZ. GKRS was 08/14/2013), and follows physician up at [facility] with surveillance brain scan now tapered down to every 4 years as the size of the meningioma has been reducing. She is a lifelong nonsmoker without no known COPD, no CHF or cardiac arrhythmia and known to patient. She denies recurrence FL since 32 yo ago and has not [...] cancers. FH:+CAD in both parents, both from [place] in 70-80s. SH: lifelong non smoker, no [...] Neurologic/Psychiatric: oriented to time, place and person, rrt strength with 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 on the left [...] consultation - will continue review with Dr. Rivera regarding the work-up findings. Tests/Labs Ordered: 1. None SIGNATURE: Melisa Reza APRN.[employer] GRINDER [employer] PATIENT NAME: Concha Woodward DATE: January 06, 2020 TIME: 12:23 PM PAGER/CONTACT #:[phone] [phone] Normal [facility] CONSULT PROG HNO ID: [id number] Author: Nettie Harkins) THIAGO Cheng Service: Cardiovascular Disease Author Type: Nurse [...] eval after presenting as a STEMI to [place]. ? She had been having URI sxs for the last week and was being treated with a 10 day course of amoxicillin. She had associated dry cough and intermittent SOB. Over the last 3 days she's been having bilateral arm pain, that radiated to her chest. She described it as a pressure. She presented to the [place] ED. EKG done in the emergency room revealed Q waves in III and aVF along with ST elevation. It was felt that patient was presenting late with acute ST elevation FL but due to ongoing chest pain that was about 2/10 in intensity she was evaluated and brought emergently to the cardiac [facility] for coronary angiography. Coronary angiography revealed multivessel coronary artery disease with MARTIN-3 flow in all the vessels and she was transferred to [facility] for CABG evaluation. Of note, she takes Plavix at home for her hx CVA and did receive Brilinta in the ED . Transthoracic echocardiogram done at [place] showed left ventricular ejection fraction of 30%, [...] failure: Patient euvolemic, asymptomatic Continue beta shravan, Pawel on hold secondary to SHA Would like to resume at the guidance of nephrology, even after CABG. 7. Carotid stenosis: Management by CT surgery Patient is on heparin drip, aspirin and statin Planning: General cardiology will sign off at this time SIGNATURE:Nettie Cheng APRN.LENS GRINDER [employer] PAGER: DATE / TIME of SERVICE: January 05, 2020 11:13 AM This note is not final until Authenticated by responsible provider. Normal [facility] Hemogram/Diffon 01-06-2020 Abs Immature Grans 0.08 thou/cmm High 0.00-0.05 [facility] Comment on above: Performed By: #### T ROP #### [place] [address] Abs Neut (ANC) 4.02 thou/cmm Normal 1.56-6.13 [facility] Comment on above: Performed By: #### T ROP #### [place] [address] Abs. Baso 0.03 thou/cmm Normal 0.01-0.08 [facility] Comment on above: Performed By: #### T ROP #### [facility] [address] [place], [place] [address] Abs. [place] 0.85 thou/cmm High 0.27-0.70 [facility] Comment on above: Performed By: #### T ROP #### [facility] [address] [place], [place] [address] Basophils/100 WBC (Bld) 0.3 % Normal [facility] Comment on above: Performed By: #### T ROP #### [facility] [address] [place], [place] [address] Eosinophils (Bld) [#/Vol] 0.11 thou/cmm Normal 0.00-0.31 [facility] Comment on above: Performed By: #### T ROP #### [facility] [address] [place], [place] [address] Eosinophils/100 WBC (Bld) 1.2 % Normal [facility] Comment on above: Performed By: #### T ROP #### [facility] [address] [place], [place] [address] Immature Grans 0.90 % Normal [facility] Comment on above: Performed By: #### T ROP #### [facility] [address] [place], [place] [address] Lymphocytes (Bld) [#/Vol] 3.96 thou/cmm High 1.18-3.74 [facility] Comment on above: Performed By: #### T ROP #### [facility] [address] [place], [place] [address] Lymphocytes/100 WBC (Bld) 43.8 % Normal [facility] Comment on above: Performed By: #### T ROP #### [facility] [address] [place], [place] [address] Monocytes/100 WBC (Bld) 9.4 % Normal [facility] Comment on above: Performed By: #### T ROP #### [facility] [address] [place], [place] [address] Seg Neutrophil 44.4 % Normal [facility] Comment on above: Performed By: #### T ROP #### [address] [place], [place] [address] Erythrocyte distribution width (RBC) [Ratio] 13.7 % Normal 11.7-14.4 [facility] Comment on above: Performed By: #### T ROP #### [facility] [address] [place] [address] Hematocrit (Bld) [Volume fraction] 32.7 % Low 34.1-44.9 [facility] Comment on above: Performed By: #### T ROP #### [facility] [address] [place] [address] Hemoglobin (Bld) [Mass/Vol] 10.9 g/dL Low 11.2-15.7 [facility] Comment on above: Performed By: #### T ROP #### [facility] [address] [place] [address] MCH (RBC) [Entitic mass] 30.6 pg Normal 25.6-32.2 [facility] Comment on above: Performed By: #### T ROP #### [place] [address] MCHC (RBC) [Mass/Vol] 33.3 % Normal 31.6-34.8 [facility] Comment on above: Performed By: #### T ROP #### [place] [address] MCV (RBC) [Entitic vol] 91.9 fL Normal 79.4-94.8 [facility] Comment on above: Performed By: #### T ROP #### [place] [address] Platelet mean volume (Bld) [Entitic vol] 11.6 fL Normal 9.4-12.3 [facility] Comment on above: Performed By: #### T ROP #### [address] [address] Platelets (Bld) [#/Vol] 301 thou/cmm Normal 182-369 [facility] Comment on above: Performed By: #### T ROP #### [place] [id number] RBC (Bld) [#/Vol] 3.56 mil/cmm Low 3.93-5.22 [facility] Comment on above: Performed By: #### T ROP #### [facility] [address] [place], [place] [address] RDW SD 45.9 fl Normal 36.4-46.3 [facility] Comment on above: Performed By: #### T ROP #### [facility] [address] [place], [place] [address] WBC (Bld) [#/Vol] 9.05 thou/cmm Normal 3.98-10.04 [facility] Comment on above: Performed By: #### T ROP #### [facility] [address] [place] [id number] PROGRESSon 01-06-2020 PROGRESS HNO ID: [id number] Author: Yanet Rivera Service: Thoracic Surgery Author Type: Physician Type: Progress Notes Filed: 01/06/2020 4:58 PM Note Text: Asked to assume cardiac surgical care by Chet. Cath films reviewed. W/U eval in progress and patient seen briefly and legs not so great looking at 1st glance. Informed patient she is tentatively on OR schedule for Sunday AM. P-will see again in AM with RN FACULTY. 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 Will not recommend CABG until cr settles PRN diureis ok , if SOB or volume issues develop Avoid all renal toxins Avoid BP shifts repalce K Trend the cr Avoid all renal toxins We will follow closely Normal [facility] PROGRESS HNO ID: [id number] Author: Chandan Tavarez Service: Hospital Medicine Author Type: Physician Type: Progress Notes Filed: 01/06/2020 10:14 AM Note Text: DEPARTMENT OF HOSPITAL MEDICINE PROGRESS NOTE SERVICE DATE: 01/06/2020 SERVICE TIME: 10:06 AM Hospital Medicine/Primary Attending: Chandan Tavarez MD NIGHT AND WEEKEND COVERAGE: From 7am - 7pm, please call [phone] After 7pm, please call cross cover pager #[phone] Subjective INTERVAL HPI: Reports feeling better. Denied [...] (Order Panel) 81 mg ORAL DAILY 01/03/20 175 -- 01/03/20 1800 heparin iv infusion (LOW DOSE ACS/NOMOGRAM) 25,000 units in NaCl 0.45% 250 mL PREMIX (Heparin Infusion + Rate Change Bolus) 0-30 mL/hr 0-3,000 Units/hr INTRAVENOUS CONTINUOUS 01/03/20 1759 -- 01/03/20 1800 vte non-pharmacologic prophylaxis - none indicated ([place]) 01/03/20 1800 vte current anticoag therapy ([place], [place]) 01/03/20 1800 activity - mobilize patient ([place]) VTE Prophylaxis: VTE prophylaxis appropriate Disposition: Home Plan of care discussed with: Patient SIGNATURE: Chandan Tavarez MD PATIENT NAME: Concha Woodward DATE: January 06, 2020 TIME: 10:06 AM PAGER/CONTACT #: [phone] Normal [facility] Renal Panelon 01-06-2020 Creatinine [Mass/Vol] 1.87 mg/dL High 0.51-0.95 [facility] Comment on above: Result Comment: Use of this assay is not recommended for patients undergoing treatment with phenindione, due to the potential for falsely depressed results. Performed By: #### T ROP #### [address] [address] Phosphate [Mass/Vol] 3.4 mg/dL Normal 2.5-4.9 [facility] Comment on above: Performed By: #### T ROP #### [address] [address] Albumin [Mass/Vol] 2.5 g/dL Low 3.4-5.0 [facility] Comment on above: Performed By: #### T ROP #### [address] [address] Anion gap [Moles/Vol] 12 mmol/L Normal 8-16 [facility] Comment on above: Performed By: #### T ROP #### [address] [address] CO2 [Moles/Vol] 20 mmol/L Low 21-32 [facility] Comment on above: Performed By: #### T ROP #### [facility] [address] [place], [place] [address] Urea nitrogen [Mass/Vol] 48 mg/dL High 7-18 [facility] Comment on above: Performed By: #### T ROP #### [address] [address] Calcium [Mass/Vol] 8.2 mg/dL Low 8.5-10.1 [facility] Comment on above: Performed By: #### T ROP #### [facility] [address] [place], [place] [address] Glucose [Mass/Vol] 148 mg/dL High 70-99 [facility] Comment on above: Performed By: #### T ROP #### [facility] [address] [place], [place] [address] Chloride [Moles/Vol] 111 mmol/L High 98-107 [facility] Comment on above: Performed By: #### T ROP #### [facility] [address] [place], [place] [address] Potassium [Moles/Vol] 3.7 mmol/L Normal 3.5-5.1 [facility] Comment on above: Performed By: #### T ROP #### [facility] [address] [place], [place] [address] Sodium [Moles/Vol] 139 mmol/L Normal 136-145 [facility] Comment on above: Performed By: #### T ROP #### [facility] [address] [place] [address] ALLIED HEALTHon 01-05-2020 ALLIED HEALTH HNO ID: [id number] Author: Malinda BlairRn) RITA [place] Service: Cardiac Rehab Author Type: [...] 05, 2020 TIME: 2:47 PM PAGER/CONTACT #: [phone] Normal [facility] Activated PTTon 01-05-2020 aPTT Coag (Bld) [Time] 60.8 s High 23.0-32.4 [facility] Comment on above: Result Comment: Unfr actionated [...] laboratory APTT reagent in use throughout the [facility]. Performed By: #### P T #### [facility] [address] [place] [address] Basic Panelon 01-05-2020 Creatinine [Mass/Vol] 2.16 mg/dL High 0.51-0.95 [facility] Comment on above: Result Comment: Use of this assay is not recommended for patients undergoing treatment with phenindione, due to the potential for falsely depressed results. Performed By: #### P T #### [place] [address] Anion gap [Moles/Vol] 11 mmol/L Normal 8-16 [facility] Comment on above: Performed By: #### P T #### [place] [address] CO2 [Moles/Vol] 23 mmol/L Normal 21-32 [facility] Comment on above: Performed By: #### P T #### [address] [address] Glucose [Mass/Vol] 145 mg/dL High 70-99 [facility] Comment on above: Performed By: #### P T #### [facility] [address] [place], [place] [address] Urea nitrogen [Mass/Vol] 46 mg/dL High 7-18 [facility] Comment on above: Performed By: #### P T #### [address] [address] Calcium [Mass/Vol] 8.6 mg/dL Normal 8.5-10.1 [facility] Comment on above: Performed By: #### P T #### [address] [address] Chloride [Moles/Vol] 106 mmol/L Normal 98-107 [facility] Comment on above: Performed By: #### P T #### [facility] [address] [place], [place] [address] Potassium [Moles/Vol] 3.2 mmol/L Low 3.5-5.1 [facility] Comment on above: Performed By: #### P T #### [facility] [address] [place], [place] [address] Sodium [Moles/Vol] 137 mmol/L Normal 136-145 [facility] Comment on above: Performed By: #### P T #### [facility] [address] [place], [place] [address] CASE MGT INIT ASSESon 2019 CASE MGT INIT ASSPRADEEP HNO ID: [id number] Author: Patience BlairRn) RITA Christy Service: Care Management Author Type: Registered Nurse Type: Care Mgt Initial Assessment Filed: 01/05/2020 4:05 PM Note Text: CARE MANAGEMENT: ASSESSMENT AND DISCHARGE PLAN SERVICE DATE: January 05, 2020 SERVICE TIME: 4:02 PM PRIMARY CARE PHYSICIAN: Anju Pearce MD ADMISSION STATUS: Inpatient Needs Prior to Discharge: To Be Determined MEDICAL: MEDICARE A AND B Patient/Blood Coordinator Stated Goals: To return home to life as it was Health Insurance: Medicare;Comment([place] supplement) Health Issues Impacting Discharge Plan: None Last Discharge Date: 08/14/13 Is this Within the Past 30 days? 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 Await card surg eval for possible CABG. Will follow clinical progress. SIGNATURE: Patience Christy RN PATIENT NAME: Concha Woodward DATE: January 05, 2020 TIME: 4:02 PM PAGER/CONTACT #: [phone] [facility] CONSULT PROGon 01-05-2020 CONSULT PROG HNO ID: [id number] Author: Nettie Harkins) THIAGO Cheng Service: Cardiovascular Disease Author Type: Nurse [...] eval after presenting as a STEMI to [place]. ? She had been having URI sxs for the last week and was being treated with a 10 day course of amoxicillin. She had associated dry cough and intermittent SOB. Over the last 3 days she's been having bilateral arm pain, that radiated to her chest. She described it as a pressure. She presented to the [place] ED. EKG done in the emergency room revealed Q waves in III and aVF along with ST elevation. It was felt that patient was presenting late with acute ST elevation FL but due to ongoing chest pain that was about 2/10 in intensity she was evaluated and brought emergently to the cardiac Grinder Set Up Operator Jig for coronary angiography. Coronary angiography revealed multivessel coronary artery disease with MARTIN-3 flow in all the vessels and she was transferred to [facility] for CABG evaluation. Of note, she takes Plavix at home for her hx CVA and did receive Brilinta in the ED . Transthoracic echocardiogram done at [place] showed left ventricular ejection fraction of 30%, [...] 01/03/2020 HDL Cholesterol 42 01/03/2020 LDL Chol, [place] 99 01/03/2020 ASSESSMENT AND PLAN: 1. 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 Planning: General cardiology will continue to follow, awaiting CABG surgical date, due to Brilinta . SIGNATURE:Nettie Cheng APRN.LENS GRINDER ROUGH PAGER: DATE / TIME of SERVICE: January 05, 2020 11:13 AM This note is not final until Authenticated by responsible provider. Normal [facility] CONSULT PROG HNO ID: [id number] Author: Ann Echeverria Service: Endocrinology Author Type: [...] 30 years ago. ?H/o CAD and remote FL now admitted with NSTEMI who is found [...] January 05, 2020 TIME: 8:40 AM PAGER: [phone] Normal [facility] CT CHEST WO IVCONon 01-05-20 CT CHEST WO IVCON * * *Final Report* * * DATE OF EXAM: Jan 05 2020 1:48PM [facility] 0541 - CT CHEST WO IVCON / [...] exam could be obtained in 12 months. Web Developer: [facility] Transcribe Date/Time: Jan 05 2020 2:13P Dictated by : ALEJANDRINA MINER MD This examination was interpreted and the report reviewed and electronically signed by: ALEJANDRINA MINER MD on Jan 05 2020 2:22PM EST Normal [facility] Hemogram/Diffon 01-05-2020 Interpreted by See below Normal [facility] Comment on above: Result Comment: Miriam Loving M.D., Pathologist Performed By: #### P T #### [place] [address] Abs Immature Grans 0.08 thou/cmm High 0.00-0.05 [facility] Comment on above: Performed By: #### P T #### [place] [address] Abs Neut (ANC) 5.52 thou/cmm Normal 1.56-6.13 [facility] Comment on above: Performed By: #### P T #### [place] [address] Abs. Baso 0.05 thou/cmm Normal 0.01-0.08 [facility] Comment on above: Result Comment: Smea r scanned; tech agrees with automated differential Performed By: #### P T #### [place] [address] Abs. [place] 1.00 thou/cmm High 0.27-0.70 [facility] Comment on above: Performed By: #### P T #### [facility] [address] [place], [place] [address] Basophils/100 WBC (Bld) 0.4 % Normal [facility] Comment on above: Performed By: #### P T #### [facility] [address] [place], [place] [address] Eosinophils (Bld) [#/Vol] 0.09 thou/cmm Normal 0.00-0.31 [facility] Comment on above: Performed By: #### P T #### [facility] [address] [place], [place] [address] Eosinophils/100 WBC (Bld) 0.8 % Normal [facility] Comment on above: Performed By: #### P T #### [facility] [address] [place], [place] [address] Immature Grans 0.70 % Normal [facility] Comment on above: Performed By: #### P T #### [facility] [address] [place], [place] [address] Lymphocytes (Bld) [#/Vol] 5.07 thou/cmm High 1.18-3.74 [facility] Comment on above: Performed By: #### P T #### [facility] [address] [place], [place] [address] Lymphocytes/100 WBC (Bld) 42.9 % Normal [facility] Comment on above: Performed By: #### P T #### [facility] [address] [place], [place] [address] Monocytes/100 WBC (Bld) 8.5 % Normal [facility] Comment on above: Performed By: #### P T #### [facility] [address] [place], [place] [address] Seg Neutrophil 46.7 % Normal [facility] Comment on above: Performed By: #### P T #### [facility] [address] [place], [place] [address] Erythrocyte distribution width (RBC) [Ratio] 13.2 % Normal 11.7-14.4 [facility] Comment on above: Performed By: #### P T #### [facility] [address] [place] [address] Hematocrit (Bld) [Volume fraction] 35.9 % Normal 34.1-44.9 [facility] Comment on above: Performed By: #### P T #### [facility] [address] [place] [address] Hemoglobin (Bld) [Mass/Vol] 12.0 g/dL Normal 11.2-15.7 [facility] Comment on above: Performed By: #### P T #### [facility] [address] [place] [address] MCH (RBC) [Entitic mass] 30.2 pg Normal 25.6-32.2 [facility] Comment on above: Performed By: #### P T #### [facility] [address] [place] [address] MCHC (RBC) [Mass/Vol] 33.4 % Normal 31.6-34.8 [facility] Comment on above: Performed By: #### P T #### [facility] [address] [place] [address] MCV (RBC) [Entitic vol] 90.2 fL Normal 79.4-94.8 [facility] Comment on above: Performed By: #### P T #### [facility] [address] [place] [address] Platelet mean volume (Bld) [Entitic vol] 11.5 fL Normal 9.4-12.3 [facility] Comment on above: Performed By: #### P T #### [facility] [address] [place] [address] Platelets (Bld) [#/Vol] 335 thou/cmm Normal 182-369 [facility] Comment on above: Performed By: #### P T #### [facility] [address] [place] [address] RBC (Bld) [#/Vol] 3.98 mil/cmm Normal 3.93-5.22 [facility] Comment on above: Performed By: #### P T #### [facility] [address] [place] [address] RDW SD 44.1 fl Normal 36.4-46.3 [facility] Comment on above: Performed By: #### P T #### [facility] [address] [place], [place] [address] WBC (Bld) [#/Vol] 11.82 thou/cmm High 3.98-10.04 [facility] Comment on above: Performed By: #### P T #### [facility] [address] [place], [place] [address] PLAN OF CAREon 01-05-2020 PLAN OF CARE HNO ID: [id number] Author: Melisa (Thiago) THIAGO Reza Service: Cardiovascular Surgery Author Type: Nurse Practitioner [...] on her Echo and HC discs [place]. We will present her case tomorrow at [...] with more than 50% of the total iews-gs-gjas time of the visit in counseling / coordination of care. Meilsa Reza APRN.LENS GRINDER ROUGH Normal [facility] PROGRESSon 01-05-2020 PROGRESS HNO ID: [id number] Author: Cesar Burroughs Service: Nephrology Author Type: [...] Recent Labs 01/05/20 0354 CO2 23 Specific [place], Ur Date Value Ref Range Status 12/25/2019 [...] Reccomendations Cr is worse CIIN likely Dc PAWEL-I Back off on diuresis for 24 h With both expect the cr to peak, stabalize and then decrease With the ongoing SHA very high risk of needing POWDER CUTTING OPERATOR Will not recommend CABG until cr settles Avoid all renal toxins Avoid BP shifts repalce K Trend the cr Avoid all renal toxins We will follow closely Normal [facility] PROGRESS HNO ID: [id number] Author: Chandan Tavarez Service: Hospital Medicine Author Type: Physician Type: Progress Notes Filed: 01/05/2020 12:52 PM Note Text: DEPARTMENT OF HOSPITAL MEDICINE PROGRESS NOTE SERVICE DATE: 01/05/2020 SERVICE TIME: 12:44 PM Hospital Medicine/Primary Attending: Chandan Tavarez MD NIGHT AND WEEKEND COVERAGE: From 7am - 7pm, please call [phone] After 7pm, please call cross cover pager #[phone] Subjective INTERVAL HPI: Reports that she is [...] (Order Panel) 81 mg ORAL DAILY 01/03/20 175 -- 01/03/20 1800 heparin iv infusion (LOW DOSE ACS/NOMOGRAM) 25,000 units in NaCl 0.45% 250 mL PREMIX (Heparin Infusion + Rate Change Bolus) 0-30 mL/hr 0-3,000 Units/hr INTRAVENOUS CONTINUOUS 01/03/20 175 -- 01/03/20 1800 vte non-pharmacologic prophylaxis - none indicated (ca,ny) 01/03/20 1800 vte current anticoag therapy (ca,ny) 01/03/20 1800 activity - mobilize patient (ca,ny) VTE Prophylaxis: VTE prophylaxis appropriate Disposition: Home Plan of care discussed with: Patient SIGNATURE: Chandan Tavarez MD PATIENT NAME: Concha Woodward DATE: January 05, 2020 TIME: 12:44 PM PAGER/CONTACT #: [phone] Normal [facility] US CAROTID BILon 01-05-2020 Bilirubin.direct [Mass/Vol] * * *Final Report* * * DATE OF EXAM: Jan 05 2020 12:57PM A2U 1077 - US CAROTID GIOVANY / PROCEDURE REASON: cva * * * * Physician Interpretation * * * * Non-Invasive Vascular Laboratory [facility] Carotid Duplex Bilateral/Complete Date of service/time: [...] and antegrade flow noted. Technologist: Irene Bell RVT Ordering physician: QI CALDERÓN Interpreting physician: Samuel Mendosa MD Final RP Web Developer: BENEDICTO Vincent Date/Time: Jan 05 2020 8:46A Dictated by : SAMUEL MENDOSA MD This examination was interpreted and the report reviewed and electronically signed by: SAMUEL MENDOSA MD on Jan 06 2020 10:42AM EST Normal [facility] Activated PTTon 01-04-2020 aPTT Coag (Bld) [Time] 53.3 s High 23.0-32.4 [facility] Comment on above: Result Comment: Unfr actionated [...] laboratory APTT reagent in use throughout the [facility]. Performed By: #### P T #### [place] [address] aPTT Coag (Bld) [Time] 53.2 s High 23.0-32.4 [facility] Comment on above: Result Comment: Unfr actionated [...] laboratory APTT reagent in use throughout the [facility]. Performed By: #### A PTT #### [place] [address] aPTT Coag (Bld) [Time] 38.5 s High 23.0-32.4 [facility] Comment on above: Result Comment: Unfr actionated [...] laboratory APTT reagent in use throughout the [facility]. Performed By: #### A PTT #### [place] [address] Basic Panelon 01-04-2020 Creatinine [Mass/Vol] 1.43 mg/dL High 0.51-0.95 [facility] Comment on above: Result Comment: Use of this assay is not recommended for patients undergoing treatment with phenindione, due to the potential for falsely depressed results. Performed By: #### A PTT #### [place] [id number] Anion gap [Moles/Vol] 14 mmol/L Normal 8-16 [facility] Comment on above: Performed By: #### A PTT #### [facility] [address] [place], [place] [address] Calcium [Mass/Vol] 8.8 mg/dL Normal 8.5-10.1 [facility] Comment on above: Performed By: #### A PTT #### [facility] [address] [place], [place] [address] CO2 [Moles/Vol] 20 mmol/L Low 21-32 [facility] Comment on above: Performed By: #### A PTT #### [facility] [address] [place], [place] [address] Glucose [Mass/Vol] 202 mg/dL High 70-99 [facility] Comment on above: Performed By: #### A PTT #### [facility] [address] [place], [place] [address] Urea nitrogen [Mass/Vol] 37 mg/dL High 7-18 [facility] Comment on above: Performed By: #### A PTT #### [facility] [address] [place], [place] [address] Chloride [Moles/Vol] 105 mmol/L Normal 98-107 [facility] Comment on above: Performed By: #### A PTT #### [facility] [address] [place], [place] [address] Potassium [Moles/Vol] 4.5 mmol/L Normal 3.5-5.1 [facility] Comment on above: Performed By: #### A PTT #### [facility] [address] [place], [place] [address] Sodium [Moles/Vol] 134 mmol/L Low 136-145 [facility] Comment on above: Performed By: #### A PTT #### [facility] [address] [place] [address] CONSULTon 01-04-2020 CONSULT HNO ID: [id number] Author: Cesar Burroughs Service: Nephrology Author Type: Physician Type: Consults Filed: 01/05/2020 10:31 AM Note Text: [facility] - Consultation PATIENT NAME: CONCHA WOODWARD I CSN: [id number] DATE OF : 1935 SEX/AGE: F/84 PATIENT TYPE: [place] [facility] [place] LOCATION: [id number] DATE OF SERVICE: 01/04/2020 REFERRING PHYSICIAN: ISIDRO WOLF REASON FOR EVALUATION: Acute kidney injury on top of chronic kidney disease, stage [address] of [address]-elevation myocardial infarction. HISTORY OF PRESENT ILLNESS: The patient is an 84-year-old lady, who denies any pre-existing history of kidney disease. Her baseline creatinine appears to be around 1.3 to 1.4. She presented to the hospital in [place], complaining of weakness, tiredness, cough, and shortness [...] and she was brought to the cardiac laboratory development technician. Her coronary angiography revealed multivessel coronary artery [...] angioplasty [address] [facility]. 4. History of internal hemorrhoids. 5. [...] 75 a day. 10.Claritin 10 mg daily. 11.[place]-3 fatty acids 2 capsules daily. 12.Calcium carbonate [...] 3. I explained to her that the [facility] criteria for risk of acute kidney injury [...] decided, we will recommend to hold the PAWEL inhibitor at least for 24 hours pre [...] or concerns. I can be reached at [phone] with questions, concerns, or issues. For the [...] point of time. Cesar Burroughs MD DD:anthony /[id number] Normal [facility] CONSULT HNO ID: [id number] Author: Eileen Jones Service: Endocrinology Author Type: Physician Type: Consults Filed: 01/05/2020 12:46 PM Note Text: [facility] - Consultation PATIENT NAME: CONCHA WOODWARD I CSN: [id number] DATE OF : 1935 SEX/AGE: F/84 PATIENT TYPE: I HOSP SVC: CARD LOCATION: [id number] DATE OF SERVICE: 01/04/2020 TIME OF SERVICE: 10:13 AM REFERRING PHYSICIAN: ISIDRO WOLF REASON FOR CONSULTATION: Diabetes management. This is Dr. Jones covering for Dr. Echeverria. HISTORY: The patient is an 84-year-old female, who was transferred from [place]. She was admitted there with chest pain and was found to have coronary artery disease. Patient has history of angioplasty 30 years ago. She had cardiac catheterization and was transferred to [facility]. Regarding diabetes, patient has history of type [...] of hypertension, history of hyperlipidemia, history of FL 30 years ago when patient had angioplasty, [...] patient tomorrow. Eileen Jones MD Endocrinology SM:modl /[id number] [facility] CONSULT HNO ID: [id number] Author: Eileen Jones Service: Endocrinology Author Type: Physician Type: Consults Filed: 01/04/2020 10:11 AM Note Text: I have reviewed the patient's medical record in detail. Consult note dictated. See new insulin orders. Eileen Jones MD [facility] CONSULT HNO ID: [id number] Author: Cesar Burroughs Service: Nephrology Author Type: Physician Type: Consults Filed: 01/04/2020 3:02 PM Note Text: Chart reviwed Thanks full consult to follow [id number] SHA ON CKD 3 Trend the cr post the IV Contrast Follow the renal function Decrease PAWEL-I and hold If cr > 30 % increase over baseline Avoid overt BP shifts At this time Risk of SHA needing POWDER CUTTING OPERATOR post the CABG is about 9 % [...] is available We will follow closely- Normal [facility] Creatinine,Urineon 0 Creatinine,Urine 181.0 mg/dL Normal [facility] Comment on above: Result Comment: Use of this assay is not recommended for patients undergoing treatment with phenindione, due to the potential for falsely depressed results. Performed By: #### P T #### [facility] [address] [place] [address] Ferritinon 01-04-2020 Ferritin [Mass/Vol] 205.90 ng/mL Normal 8.00-252.00 [facility] Comment on above: Performed By: #### A PTT #### [place] [address] Folateon 01-04-2020 Folate 68.70 ng/mL High 3.10-17.50 [facility] Comment on above: Performed By: #### A PTT #### [place] [address] Hemogram/Diffon 01-04-2020 Abs Immature Grans 0.06 thou/cmm High 0.00-0.05 [facility] Comment on above: Performed By: #### A PTT #### [place] [address] Abs Neut (ANC) 7.01 thou/cmm High 1.56-6.13 [facility] Comment on above: Performed By: #### A PTT #### [place] [address] Abs. Baso 0.04 thou/cmm Normal 0.01-0.08 [facility] Comment on above: Result Comment: Smea r scanned; tech agrees with automated differential Performed By: #### A PTT #### [place] [address] Abs. [place] 0.87 thou/cmm High 0.27-0.70 [facility] Comment on above: Performed By: #### A PTT #### [place] [address] Basophils/100 WBC (Bld) 0.3 % Normal [facility] Comment on above: Performed By: #### A PTT #### [address] [place], [place] [address] Eosinophils (Bld) [#/Vol] 0.05 thou/cmm Normal 0.00-0.31 [facility] Comment on above: Performed By: #### A PTT #### [facility] [address] [place], [place] [address] Eosinophils/100 WBC (Bld) 0.4 % Normal [facility] Comment on above: Performed By: #### A PTT #### [facility] [address] [place], [place] [address] Immature Grans 0.50 % Normal [facility] Comment on above: Performed By: #### A PTT #### [facility] [address] [place], [place] [address] Lymphocytes (Bld) [#/Vol] 3.93 thou/cmm High 1.18-3.74 [facility] Comment on above: Performed By: #### A PTT #### [facility] [address] [place], [place] [address] Lymphocytes/100 WBC (Bld) 32.9 % Normal [facility] Comment on above: Performed By: #### A PTT #### [facility] [address] [place], [place] [address] Monocytes/100 WBC (Bld) 7.3 % Normal [facility] Comment on above: Performed By: #### A PTT #### [facility] [address] [place], [place] [address] Seg Neutrophil 58.6 % Normal [facility] Comment on above: Performed By: #### A PTT #### [facility] [address] [place], [place] [address] Erythrocyte distribution width (RBC) [Ratio] 13.2 % Normal 11.7-14.4 [facility] Comment on above: Performed By: #### A PTT #### [facility] [address] [place], [place] [address] Hematocrit (Bld) [Volume fraction] 36.0 % Normal 34.1-44.9 [facility] Comment on above: Performed By: #### A PTT #### [address] [address] Hemoglobin (Bld) [Mass/Vol] 12.4 g/dL Normal 11.2-15.7 [facility] Comment on above: Performed By: #### A PTT #### [facility] [address] [place] [address] MCH (RBC) [Entitic mass] 30.8 pg Normal 25.6-32.2 [facility] Comment on above: Performed By: #### A PTT #### [facility] [address] [place] [address] MCHC (RBC) [Mass/Vol] 34.4 % Normal 31.6-34.8 [facility] Comment on above: Performed By: #### A PTT #### [facility] [address] [place] [address] MCV (RBC) [Entitic vol] 89.3 fL Normal 79.4-94.8 [facility] Comment on above: Performed By: #### A PTT #### [facility] [address] [place] [address] Platelet mean volume (Bld) [Entitic vol] 11.6 fL Normal 9.4-12.3 [facility] Comment on above: Performed By: #### A PTT #### [facility] [address] [place] [address] Platelets (Bld) [#/Vol] 333 thou/cmm Normal 182-369 [facility] Comment on above: Performed By: #### A PTT #### [facility] [address] [place] [address] RBC (Bld) [#/Vol] 4.03 mil/cmm Normal 3.93-5.22 [facility] Comment on above: Performed By: #### A PTT #### [facility] [address] [place] [address] RDW SD 43.2 fl Normal 36.4-46.3 [facility] Comment on above: Performed By: #### A PTT #### [facility] [address] [place] [address] WBC (Bld) [#/Vol] 11.96 thou/cmm High 3.98-10.04 [facility] Comment on above: Performed By: #### A PTT #### [facility] [address] [place], [place] [address] Iron % Saturationon 01-04-20 20 Iron % Saturation 27 % Normal 20-55 [facility] Comment on above: Performed By: #### A PTT #### [facility] [address] [place], [place] [address] Iron Binding Cap. 292 ug/dL Normal 250-450 [facility] Comment on above: Result Comment: SPEC IMEN SLIGHTLY HEMOLYZED Performed By: #### A PTT #### [facility] [address] [place], [place] [address] Iron Serum 78 ug/dL Normal 50-170 [facility] Comment on above: Result Comment: SPEC IMEN SLIGHTLY HEMOLYZED Performed By: #### A PTT #### [facility] [address] [place], [place] [address] NURSING PROGon 01-04-2020 NURSING PROG HNO ID: [id number] Author: Caio (Rn) RITA Simms Service: Nursing Author Type: Registered Nurse Type: Nursing Progress Note Filed: 01/04/2020 9:25 PM Note Text: Pt transported via wheelchair to [facility] in stable condition. Nurse notified that pt was in room, pt connected to telemetry monitoring device prior to this RN's departure. Normal [facility] PROGRESSon 01-04-2020 PROGRESS HNO ID: [id number] Author: Patience Adler Service: Cardiovascular Medicine Author Type: Resident Type: Progress Notes Filed: 01/04/2020 12:58 PM Note Text: CVICU Transfer Note 84 year old female PMH T2DM, CAD s/p PCI 30 years ago, CVA on Plavix who was admitted for coronary artery bypass graft eval after presenting as a STEMI to [place]. Over the last 3 days she's been having bilateral arm pain, that radiated to her chest. She presented to the [place] ED. EKG done in the emergency room revealed Q waves in III and aVF along with ST elevation. It was felt that patient was presenting late with acute ST elevation FL but due to ongoing chest pain that was about 2/10 in intensity she was evaluated and brought emergently to the cardiac Grinder Set Up Operator Jig for coronary angiography. Coronary angiography revealed multivessel coronary artery disease with MARTIN-3 flow in all the vessels and she was transferred to [facility] for CABG evaluation. Of note, she takes Plavix at home for her hx CVA and did receive Brilinta in the ED . Transthoracic echocardiogram done at [place] showed left ventricular ejection fraction of 30%, [...] system?- asked RN to request disc from [place] Continue with home BP meds C/w po furosemide 20 mg daily, patient having adequate diuresis Nephrology consult requested by Cardiothoracic Surgery for CKD Endocrinology consult for DM Continue with heparin drip? Transferred to medical floor-SOUND accepted Patience Adler CVICU Resident Pager #[phone] Normal [facility] PROGRESS HNO ID: [id number] Author: Darryn Phillips Service: Cardiovascular Medicine Author Type: Physician Type: Progress Notes Filed: 01/04/2020 1:22 PM Note Text: [facility] CVICU PROGRESS NOTE Service Date: 01/04/2020 Service Time: 8:30 AM HPI: 84 year old female PMH T2DM, CAD s/p PCI 30 years ago, CVA on Plavix who was admitted for coronary artery bypass graft eval after presenting as a STEMI to [place]. She had been having URI sxs for the last week and was being treated with a 10 day course of amoxicillin. She had associated dry cough and intermittent SOB. Over the last 3 days she's been having bilateral arm pain, that radiated to her chest. She described it as a pressure. She presented to the [place] ED. EKG done in the emergency room revealed Q waves in III and aVF along with ST elevation. It was felt that patient was presenting late with acute ST elevation FL but due to ongoing chest pain that was about 2/10 in intensity she was evaluated and brought emergently to the cardiac Gr[employer] Up [employer] Jig for coronary angiography. Coronary angiography revealed multivessel coronary artery disease with MARTIN-3 flow in all the vessels and she was transferred to [facility] for CABG evaluation. Of note, she takes Plavix at home for her hx CVA and did receive Brilinta in the ED . Transthoracic echocardiogram done at [place] showed left ventricular ejection fraction of 30%, [...] Inject 11 Units subcutaneously every morning. Insulin [place], Disposable, (BD ULTRA-FINE JOHN PEN NEEDLE) 32 [...] sugar Lancing Device (LANCING DEVICE WITH LANCETS) [facility], Use to check blood sugar [...] Akinetic. Mid-Inferior: Akinetic. Mid-inferoseptal : Akinetic. Anterior [place] : Hypokinetic. Inferior [place] : Dyskinetic. Lateral [place] : Hypokinetic. Septal [place] : Dyskinetic. Right Ventricle Normal RV size. [...] - asked RN to request disc from [place] Continue with amlodipine Continue with lisinopril C/w [...] January 04, 2020 TIME: 8:30 AM Pager: [phone] This patient was seen in conjunction with [...] ICD9: 411.1, ICD10: I24.9 Darryn Phillips MD, [facility]. Pager # [phone] Normal [facility] Renal Panelon 01-04-2020 Creatinine [Mass/Vol] 1.51 mg/dL High 0.51-0.95 [facility] Comment on above: Result Comment: Use of this assay is not recommended for patients undergoing treatment with phenindione, due to the potential for falsely depressed results. Performed By: #### P T #### [address] [address] Phosphate [Mass/Vol] 3.0 mg/dL Normal 2.5-4.9 [facility] Comment on above: Performed By: #### P T #### [address] [address] Albumin [Mass/Vol] 3.1 g/dL Low 3.4-5.0 [facility] Comment on above: Performed By: #### P T #### [address] [address] Anion gap [Moles/Vol] 14 mmol/L Normal 8-16 [facility] Comment on above: Performed By: #### P T #### [address] [address] Calcium [Mass/Vol] 9.0 mg/dL Normal 8.5-10.1 [facility] Comment on above: Performed By: #### P T #### [address] [place], [place] [address] CO2 [Moles/Vol] 21 mmol/L Normal 21-32 [facility] Comment on above: Performed By: #### P T #### [facility] [address] [place], [place] [address] Glucose [Mass/Vol] 284 mg/dL High 70-99 [facility] Comment on above: Performed By: #### P T #### [facility] [address] [place], [place] [address] Urea nitrogen [Mass/Vol] 38 mg/dL High 7-18 [facility] Comment on above: Performed By: #### P T #### [facility] [address] [place], [place] [address] Chloride [Moles/Vol] 103 mmol/L Normal 98-107 [facility] Comment on above: Performed By: #### P T #### [facility] [address] [place], [place] [address] Potassium [Moles/Vol] 4.2 mmol/L Normal 3.5-5.1 [facility] Comment on above: Performed By: #### P T #### [facility] [address] [place], [place] [address] Sodium [Moles/Vol] 134 mmol/L Low 136-145 [facility] Comment on above: Performed By: #### P T #### [facility] [address] [place], [place] [address] TSH, 3rd generationon 2019 TSH, 3rd generation 2.180 uIU/mL Normal 0.358-3.740 [facility] Comment on above: Performed By: #### A PTT #### [facility] [address] [place], [place] [address] Troponin Ion 01-04-2020 Troponin I.cardiac [Mass/Vol] 33.900 ng/mL Critically high 0.015-0.045 [facility] Comment on above: Performed By: #### A PTT #### [address] [address] Troponin I.cardiac [Mass/Vol] 45.800 ng/mL Critically high 0.015-0.045 [facility] Comment on above: Result Comment: RESU LT RECHECKED Performed By: #### T ROP #### [facility] [address] [place] [address] US KIDNEY/BLADDERon 01-04-20 20 US KIDNEY/BLADDER * * *Final Report* * * DATE OF EXAM: Jan 04 2020 9:46PM AKU [id number] - US KIDNEY/BLADDER / PROCEDURE REASON: [...] most often seen with medical renal disease. Web Developer: KURT Transcribe Date/Time: Jan 04 2020 11:22P Dictated by : VISH MOYA MD This examination was interpreted and the report reviewed and electronically signed by: VISH MOYA MD on Jan 04 2020 11:23PM EST Normal [facility] Urine Proteinon 01-04-2020 Protein Ql (U) 65.5 mg/dL High 0.0-11.9 [facility] Comment on above: Performed By: #### P T #### [facility] [address] [place] [address] Vitamin B12on 01-04-2020 Cobalamin (Vitamin B12) [Mass/Vol] 1106 pg/mL High 193-986 [facility] Comment on above: Performed By: #### A PTT #### [facility] [address] [place] [id number] Activated PTTon 01-03-2020 aPTT Coag (Bld) [Time] 22.3 s Low 23.0-32.4 [facility] Comment on above: Result Comment: Unfr actionated [...] laboratory APTT reagent in use throughout the [facility]. Performed By: #### A PTT #### [facility] [address] [place], [place] [address] CONSULTon 01-03-2020 CONSULT HNO ID: [id number] Author: Westley Rosenberg Service: Cardiac Surgery Author Type: Physician Type: Consults Filed: 01/03/2020 6:29 PM Note Text: CARDIOTHORACIC SURGERY CONSULT / HANDP SERVICE DATE: 01/03/2020 SERVICE TIME: 6:20 PM Subjective PRIMARY SERVICE: Cardiothoracic Surgery CHIEF COMPLAINT: NSTEMI, MV CAD HPI: This is a 84 year old woman transferred from [facility] after she presented today with NSTEMI and was found to have severe MV CAD with EF 30%. She had an FL 30 years ago treated with angioplasty. She is now experiencing chest burning while trying to sleep. She denies dyspnea or orthopnea or edema. No FL or CHF in the intervening years. Risk [...] see catheterization report. Transthoracic echocardiogram done at [place] showed left ventricular ejection fraction of 30%, [...] ANGIOPLASTY 1988 - COLONOSCOP W/ OR W/O [facility] SPEC 08/29/07 - LAPAROSCOPIC CHOLEYCYSTECTOMY Cholecystectomy, lap [...] Disp: 5 Pen, Rfl: 5, Taking Insulin [place], Disposable, (BD ULTRA-FINE JOHN PEN NEEDLE) 32 [...] Taking Lancing Device (LANCING DEVICE WITH LANCETS) [facility], Use to check blood sugar [...] Inject 11 Units subcutaneously every morning. Insulin [place], Disposable, (BD ULTRA-FINE JOHN PEN NEEDLE) 32 [...] sugar Lancing Device (LANCING DEVICE WITH LANCETS) [facility], Use to check blood sugar [...] woman with a h/o CAD and remote FL now admitted with NSTEMI who is found [...] 2020 TIME: 6:20 PM PAGER/CONTACT #: [phone] Normal [facility] HISTORY PHYSICALon 0 HISTORY PHYSICAL HNO ID: [id number] Author: Darryn Phillips Service: Cardiovascular Medicine Author Type: Physician Type: HANDP Filed: 01/05/2020 9:48 AM Note Text: [facility] Cardiovascular Intensive Care Unit HANDP SERVICE DATE: 01/03/2020 SERVICE TIME: 5:08 PM Reason for admit: ACS, multivessel coronary artery disease awaiting coronary artery bypass graft eval HPI: This is a 84 year old female who was admitted for coronary artery bypass graft eval after presenting as a STEMI to [place]. Per Ben's notes: The patient presents to the emergency department with chest pain. Patient is an 84-year-old female with history of prior FL 30 years ago treated with angioplasty. She [...] was presenting late with acute ST elevation FL but due to ongoing chest pain that was about 2/10 in intensity she was evaluated and brought emergently to the cardiac Gr[facility] [employer] [facility] for coronary angiography. Because of acute on [...] see catheterization report. transthoracic echocardiogram done at [place] showed left ventricular ejection fraction of 30%, DWMA, no valvular disease. I spoke with the cotton gin yard supervisor at [place] who left me a voicemail stating they sent the disc with catheterization images on it, however I could not find it in her chart, RN and reverse unit operator were also unable to find a disc [...] SINUS - Pure hypercholesterolemia - Stroke (cerebrum) ([facility]) 2013 - Type II or unspecified type diabetes mellitus without mention of complication, uncontrolled ([facility]) - Unspecified cardiovascular disease - Unspecified essential hypertension - Urgency of urination 2008 PAST SURGICAL HISTORY Procedure Laterality Date - ANGIOPLASTY 1988 - COLONOSCOP W/ OR W/O [facility] SPEC 08/29/07 - LAPAROSCOPIC CHOLEYCYSTECTOMY Cholecystectomy, lap [...] Inject 11 Units subcutaneously every morning. Insulin [place], Disposable, (BD ULTRA-FINE JOHN PEN NEEDLE) 32 gauge x 532 ndle, Use one needle for each dose. [...] sugar Lancing Device (LANCING DEVICE WITH LANCETS) [facility], Use to check blood sugar [...] Echo Complete W/ Contrast 01/03/20 1330 MR#: [id number] Acct: [id number] Name: CONCHA WOODWARD I Rep #: [id number] : 1935 84 From: Wenceslao Mason MD Attending Dr: Maty Noel MD Status: ADM IN Ordering Dr: Gomez Noel MD Date: 01/03/20 Location: ICU Sex: F C Admitted: 01/03/20 Reason For Study: s/p FL Procedure This was a 2D Doppler, Color [...] Akinetic. Mid-Inferior: Akinetic. Mid-inferoseptal : Akinetic. Anterior [place] : Hypokinetic. Inferior [place] : Dyskinetic. Lateral [place] : Hypokinetic. Septal [place] : Dyskinetic. Right Ventricle Normal RV size. [...] Physician: Anju Pearce Performed By: Myriam Horton, MARIAH, RVT 01/03/20 1452 Date Wenceslao Mason MD [...] - asked RN to request disc from [place] Continue with amlodipine Continue with lisinopril Start [...] January 03, 2020 TIME: 5:08 PM PAGER: [phone] This patient was seen in conjunction with the resident staff, Nursing staff and Clinical Pharmacy. I have personally seen and examined the patient. I have reviewed labs, clinical data and pertinent images. I have discussed the case with the care team. I agree with the documentation, excepts as annotated. Patient who presented to [facility] with acute coronary syndrome within the past 48 hours. Underwent cardiac catheterization which revealed multivessel disease. She was transferred for further care at [facility]. Coronary artery bypass is being contemplated. The patient received the [place] yesterday aspirin for acute management. We will [...] systolic LV heart failure. Darryn Phillips MD, FACC. Pager # [phone] Normal [facility] HOSPon 01-03-2020 HOSP [...] mL) inpn RESTASIS 0.05 % ophthalmic emulsion [place]-3 Fatty Acids 1,250 mg cap calcium carbonate [...] Diarrhea, unspecified [R19.7] ACS (acute coronary syndrome) (HCC) [I24.9] Allergies: Bactrim [Sulfamethoxazole-Trime thoprim] Codeine Prednisone Statins [Mrfgtcw-Dom-Dhu Reductase Inhibitors] Ultram [Tramadol Hcl] Date Verified: 01/08/20 Lab Values Lab Value Units Date High Low POTA* 4.0 mEq/L 01/09/2020 5.1 3.5 ALEX* 31.4 % 01/09/2020 44.9 34.1 Progress Notes ([facility]): Luann Nieto 01/06/2020 9:46 AM Signed Pt schedule to have CABG on 01/09/20 Progress Notes (): Darryn Phillips MD 01/05/2020 9:48 AM Addendum [place] [facility] Cardiovascular Intensive Care Unit HAND SERVICE DATE: 01/03/2020 SERVICE TIME: 5:08 PM Reason for admit: ACS, multivessel coronary artery disease awaiting coronary artery bypass graft eval HPI: This is a 84 year old female who was admitted for coronary artery bypass graft eval after presenting as a STEMI to [place]. Per Ben's notes: The patient presents to the emergency department with chest pain. Patient is an 84-year-old female with history of prior FL 30 years ago treated with angioplasty. She [...] was presenting late with acute ST elevation FL but due to ongoing chest pain that was about 2/10 in intensity she was evaluated and brought emergently to the cardiac Gr[facility] Set Up Operator Jig for coronary angiography. Because of acute on [...] see catheterization report. transthoracic echocardiogram done at [place] showed left ventricular ejection fraction of 30%, DWMA, no valvular disease. I spoke with the cotton gin yard supervisor at [place] who left me a voicemail stating they sent the disc with catheterization images on it, however I could not find it in her chart, RN and reverse unit operator were also unable to find a disc [...] SINUS - Pure hypercholesterolemia - Stroke (cerebrum) ([facility]) 2013 - Type II or unspecified type diabetes mellitus without mention of complication, uncontrolled ([facility]) - Unspecified cardiovascular disease - Unspecified essential hypertension - Urgency of urination 2008 PAST SURGICAL HISTORY Procedure Laterality Date - ANGIOPLASTY 1988 - COLONOSCOP W/ OR W/O [facility] SPEC 08/29/07 - LAPAROSCOPIC CHOLEYCYSTECTOMY Cholecystectomy, lap [...] Inject 11 Units subcutaneously every morning. Insulin [place], Disposable, (BD ULTRA-FINE JOHN PEN NEEDLE) 32 [...] sugar Lancing Device (LANCING DEVICE WITH LANCETS) [facility], Use to check blood sugar [...] Echo Complete W/ Contrast 01/03/20 1330 MR#: [id number] Acct: [id number] Name: CONCHA WOODWARD I Rep #: [id number] : 1935 84 From: Wenceslao Mason MD Attending Dr: Maty Noel MD Status: ADM IN Ordering Dr: Gomez Noel MD Date: 01/03/20 Location: ICU Sex: F C Admitted: 01/03/20 Reason For Study: s/p FL Procedure This was a 2D Doppler, Color [...] Akinetic. Mid-Inferior: Akinetic. Mid-inferoseptal : Akinetic. Anterior [place] : Hypokinetic. Inferior [place] : Dyskinetic. Lateral [place] : Hypokinetic. Septal [place] : Dyskinetic. Right Ventricle Normal RV size. [...] Physician: Anju Pearce Performed By: Myriam Horton, MARIAH, RVT 01/03/20 1452 Date Wenceslao Mason MD [...] Ben Continue with amlodipine Continue with lisinopril Start [...] January 03, 2020 TIME: 5:08 PM PAGER: [phone] This patient was seen in conjunction with the resident staff, Nursing staff and Clinical Pharmacy. I have personally seen and examined the patient. I have reviewed labs, clinical data and pertinent images. I have discussed the case with the care team. I agree with the documentation, excepts as annotated. Patient who presented to [facility] with acute coronary syndrome within the past 48 hours. Underwent cardiac catheterization which revealed multivessel disease. She was transferred for further care at [facility]. Coronary artery bypass is being contemplated. The patient received the [place] yesterday aspirin for acute management. We will [...] systolic LV heart failure. Darryn Phillips MD, [facility]. Pager # [phone] Previous Version Westley Rosenberg MD 01/03/2020 6:29 PM Signed CARDIOTHORACIC SURGERY CONSULT / HANDP SERVICE DATE: 01/03/2020 SERVICE TIME: 6:20 PM Subjective PRIMARY SERVICE: Cardiothoracic Surgery CHIEF COMPLAINT: NSTEMI, MV CAD HPI: This is a 84 year old woman transferred from [facility] after she presented today with NSTEMI and was found to have severe MV CAD with EF 30%. She had an FL 30 years ago treated with angioplasty. She is now experiencing chest burning while trying to sleep. She denies dyspnea or orthopnea or edema. No FL or CHF in the intervening years. Risk [...] see catheterization report. Transthoracic echocardiogram done at [place] showed left ventricular ejection fraction of 30%, [...] SINUS - Pure hypercholesterolemia - Stroke (cerebrum) ([facility]) 2013 - Type II or unspecified type diabetes mellitus without mention of complication, uncontrolled ([facility]) - Unspecified cardiovascular disease - Unspecified essential hypertension - Urgency of urination 2008 PAST SURGICAL HISTORY Procedure Laterality Date - ANGIOPLASTY 1988 - COLONOSCOP W/ OR W/O [facility] SPEC 08/29/07 - LAPAROSCOPIC CHOLEYCYSTECTOMY Cholecystectomy, lap [...] Disp: 5 Pen, Rfl: 5, Taking Insulin [place], Disposable, (So1 ULTRA-FINE JOHN PEN NEEDLE) 32 gauge x [...] Taking Lancing Device (LANCING DEVICE WITH LANCETS) misc, Use to check blood sugar three times [...] Inject 11 Units subcutaneously every morning. Insulin [place], Disposable, (BD ULTRA-FINE JOHN PEN NEEDLE) 32 [...] sugar Lancing Device (LANCING DEVICE WITH LANCETS) [facility], Use to check blood sugar [...] woman with a h/o CAD and remote FL now admitted with NSTEMI who is found [...] 2020 TIME: 6:20 PM PAGER/CONTACT #: [phone] Eileen Jones MD 01/05/2020 12:[address] [facility] - Consultation PATIENT NAME: CONCHA WOODWARD I CSN: [id number] DATE OF : 1935 SEX/AGE: F/84 PATIENT [place]: [place] [facility] LOCATION: [id number] DATE OF SERVICE: 01/04/2020 TIME OF SERVICE: 10:13 AM REFERRING PHYSICIAN: ISIDRO WOLF REASON FOR CONSULTATION: Diabetes management. This is Dr. Jones covering for Dr. Echeverria. HISTORY: The patient is an 84-year-old female, who was transferred from [place]. She was admitted there with chest pain and was found to have coronary artery disease. Patient has history of angioplasty 30 years ago. She had cardiac catheterization and was transferred to [facility]. Regarding diabetes, patient has history of type [...] of hypertension, history of hyperlipidemia, history of FL 30 years ago when patient had angioplasty, [...] patient tomorrow. Eileen Jones MD Endocrinology SM:anthony /[id number] Cesar Burroughs MD 01/05/2020 10:[address] [facility] - Consultation PATIENT NAME: CONCHA WOODWARD I CSN: [id number] DATE OF : 1935 SEX/AGE: F/84 PATIENT TYPE: I HOS[facility] LOCATION: [id number] DATE OF SERVICE: 01/04/2020 REFERRING PHYSICIAN: ISIDRO WOLF REASON FOR EVALUATION: Acute kidney injury on top of chronic kidney disease, stage [address] of [address]-elevation myocardial infarction. HISTORY OF PRESENT ILLNESS: The patient is an 84-year-old lady, who denies any pre-existing history of kidney disease. Her baseline creatinine appears to be around 1.3 to 1.4. She presented to the hospital in [place], complaining of weakness, tiredness, cough, and shortness [...] and she was brought to the cardiac laboratory development technician. Her coronary angiography revealed multivessel coronary artery [...] angioplasty [address] [facility]. 4. History of internal hemorrhoids. 5. [...] 75 a day. 10.Claritin 10 mg daily. 11.[place]-3 fatty acids 2 capsules daily. 12.Calcium carbonate [...] 3. I explained to her that the [facility] criteria for risk of acute kidney injury [...] decided, we will recommend to hold the PAWEL inhibitor at least for 24 hours pre [...] this point of time. Cesar Burroughs MD DD:modl /[id number] Previous Version Darryn Phillips MD 01/04/2020 1:22 PM Signed [facility] CVICU PROGRESS NOTE Service Date: 01/04/2020 Service Time: 8:30 AM HPI: 84 year old female PMH T2DM, CAD s/p PCI 30 years ago, CVA on Plavix who was admitted for coronary artery bypass graft eval after presenting as a STEMI to [place]. She had been having URI sxs for the last week and was being treated with a 10 day course of amoxicillin. She had associated dry cough and intermittent SOB. Over the last 3 days she's been having bilateral arm pain, that radiated to her chest. She described it as a pressure. She presented to the [place] ED. EKG done in the emergency room revealed Q waves in III and aVF along with ST elevation. It was felt that patient was presenting late with acute ST elevation FL but due to ongoing chest pain that was about 2/10 in intensity she was evaluated and brought emergently to the cardiac Grinder Set Up Operator Jig for coronary angiography. Coronary angiography revealed multivessel coronary artery disease with MARTIN-3 flow in all the vessels and she was transferred to [facility] for CABG evaluation. Of note, she takes Plavix at home for her hx CVA and did receive Brilinta in the ED . Transthoracic echocardiogram done at [place] showed left ventricular ejection fraction of 30%, [...] Inject 11 Units subcutaneously every morning. Insulin [place], Disposable, (BD ULTRA-FINE JOHN PEN NEEDLE) 32 [...] sugar Lancing Device (LANCING DEVICE WITH LANCETS) [facility], Use to check blood sugar [...] 01/03/2020 HDL Cholesterol 42 01/03/2020 LDL Chol, [place] 99 01/03/2020 Cholesterol, Total 208 01/03/2020 Last [...] Akinetic. Mid-Inferior: Akinetic. Mid-inferoseptal : Akinetic. Anterior [place] : Hypokinetic. Inferior [place] : Dyskinetic. Lateral [place] : Hypokinetic. Septal [place] : Dyskinetic. Right Ventricle Normal RV size. [...] - asked RN to request disc from [place] Continue with amlodipine Continue with lisinopril C/w [...] January 04, 2020 TIME: 8:30 AM Pager: [phone] This patient was seen in conjunction with [...] ICD9: 411.1, ICD10: I24.9 Darryn Phillips MD, FACC. Pager # [phone] Previous Version Cesar Burroughs MD 01/04/2020 3:02 PM Addendum Chart reviwed Thanks full consult to follow [id number] SHA ON CKD 3 Trend the cr post the IV Contrast Follow the renal function Decrease PAWEL-I and hold If cr > 30 % increase over baseline Avoid overt BP shifts At this time Risk of SHA needing POWDER CUTTING OPERATOR post the CABG is about 9 % [...] eval after presenting as a STEMI to [place]. Over the last 3 days she's been having bilateral arm pain, that radiated to her chest. She presented to the [place] ED. EKG done in the emergency room revealed Q waves in III and aVF along with ST elevation. It was felt that patient was presenting late with acute ST elevation FL but due to ongoing chest pain that was about 2/10 in intensity she was evaluated and brought emergently to the cardiac [facility] for coronary angiography. Coronary angiography revealed multivessel coronary artery disease with MARTIN-3 flow in all the vessels and she was transferred to [facility] for CABG evaluation. Of note, she takes Plavix at home for her hx CVA and did receive Brilinta in the ED . Transthoracic echocardiogram done at [place] showed left ventricular ejection fraction of 30%, [...] system?- asked RN to request disc from [place] Continue with home BP meds C/w po furosemide 20 mg daily, patient having adequate diuresis Nephrology consult requested by Cardiothoracic Surgery for CKD Endocrinology consult for DM Continue with heparin drip? Transferred to medical floor-[facility] P[facility] #[phone] Caio Simms, RITA, RN 01/04/2020 9:25 PM Signed Pt transported via wheelchair to [facility] in stable condition. Nurse notified that pt [...] 30 years ago. ?H/o CAD and remote FL now admitted with NSTEMI who is found [...] January 05, 2020 TIME: 8:40 AM PAGER: [phone] Nettie Cheng, FAMILY INTERVENTION SPECIALIST.LENS GRINDER ROUGH, LENS GRINDER ROUGH 01/05/2020 12:24 PM Signed CARDIOLOGY CONSULT PROGRESS NOTE CARDIOLOGY ATTENDING: Dr. Phillips INTERVAL HISTORY: History of present illness copied and updated 84 year old female PMH T2DM, CAD s/p PCI 30 years ago, CVA on Plavix who was admitted for coronary artery bypass graft eval after presenting as a STEMI to [place]. ? She had been having URI sxs for the last week and was being treated with a 10 day course of amoxicillin. She had associated dry cough and intermittent SOB. Over the last 3 days she's been having bilateral arm pain, that radiated to her chest. She described it as a pressure. She presented to the [place] ED. EKG done in the emergency room revealed Q waves in III and aVF along with ST elevation. It was felt that patient was presenting late with acute ST elevation FL but due to ongoing chest pain that was about 2/10 in intensity she was evaluated and brought emergently to the cardiac [facility] for coronary angiography. Coronary angiography revealed multivessel coronary artery disease with MARTIN-3 flow in all the vessels and she was transferred to [facility] for CABG evaluation. Of note, she takes Plavix at home for her hx CVA and did receive Brilinta in the ED . Transthoracic echocardiogram done at [place] showed left ventricular ejection fraction of 30%, [...] interval not displayed. Recent Labs 01/05/20 0354 01/04/2091401/03/20 2355 NA 137 134* 134* K 3.2* [...] failure: Patient euvolemic, asymptomatic Continue beta shravan, Pawel on hold secondary to SHA Would like to resume at the guidance of nephrology, even after CABG. Planning: General cardiology will continue to follow, awaiting CABG surgical date, due to Brilinta . SIGNATURE:Nettie Cheng APRN.LENS GRINDER ROUGH PAGER: DATE / TIME of SERVICE: January 05, 2020 11:13 AM This note is not final until Authenticated by responsible provider. Chandan Tavarez MD 01/05/2020 12:52 PM Signed [facility]PARTMENT OF [facility] MEDICINE PROGRESS NOTE SERVICE DATE: 01/05/2020 SERVICE TIME: 12:44 PM Hospital Medicine/Primary Attending: Chandan Tavarez MD NIGHT AND WEEKEND COVERAGE: From 7am - 7pm, please call [phone] After 7pm, please call cross cover pager #[phone] Subjective INTERVAL HPI: Reports that she is [...] 1800 vte non-pharmacologic prophylaxis - none indicated ([place]) 01/03/20 1800 vte current anticoag therapy ([place]) 01/03/20 1800 activity - mobilize patient ([place]) VTE Prophylaxis: VTE prophylaxis appropriate Disposition: Home Plan of care discussed with: Patient SIGNATURE: Chandan Tavarez MD PATIENT NAME: Concha Woodward DATE: January 05, 2020 TIME: 12:44 PM PAGER/CONTACT #: [phone] Malinda Zurita RN, RN 01/05/2020 2:47 PM [...] 05, 2020 TIME: 2:47 PM PAGER/CONTACT #: [phone] Melisa Reza APRN.LENS GRINDER ROUGH, LENS GRINDER ROUGH 01/05/2020 3:26 PM Signed CARDIOTHORACIC SURGERY PLAN OF CARE SERVICE DATE: January 05, 2020 SERVICE TIME: 3:18 PM Patient is visited today. She is resting comfortably in bed, alert and oriented ?3, denies active chest pain. Updated patient regarding the plan: we are waiting on her Echo and HC discs from [place]. We will present her case tomorrow at [...] with more than 50% of the total [id number] time of the visit in counseling / coordination of care. Melisa Reza APRN.THIAGO Christy RN, RN 01/05/2020 4:05 PM Signed CARE MANAGEMENT: ASSESSMENT AND DISCHARGE PLAN SERVICE DATE: January 05, 2020 SERVICE TIME: 4:02 PM PRIMARY CARE PHYSICIAN: Anju Pearce MD ADMISSION STATUS: Inpatient Needs Prior to Discharge: To Be Determined MEDICAL: MEDICARE A AND B Patient/Blood Coordinator Stated Goals: To return home to life as it was Health Insurance: Medicare;Comment([place] supplement) Health Issues Impacting Discharge Plan: None Last Discharge Date: 08/14/13 Is this Within the Past 30 days? 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 Await card surg eval for possible CABG. Will follow clinical progress. SIGNATURE: Patience Christy RN PATIENT NAME: Concha Woodward DATE: January 05, 2020 TIME: 4:02 PM PAGER/CONTACT #: [phone] Cesar Burroughs MD 01/05/2020 4:47 PM Signed [...] Recent Labs 01/05/20 0354 CO2 23 Specific [place], Ur Date Value Ref Range Status 12/25/2019 [...] Reccomendations Cr is worse CIIN likely Dc PAWEL-I Back off on diuresis for 24 h With both expect the cr to peak, stabalize and then decrease With the ongoing SHA very high risk of needing POWDER CUTTING OPERATOR Will not recommend CABG until cr settles Avoid all renal toxins Avoid BP shifts repalce K Trend the cr Avoid all renal toxins We will follow closely Chandan Tavarez MD 01/06/2020 10:14 AM Signed DEPARTMENT OF HOSPITAL MEDICINE PROGRESS NOTE SERVICE DATE: 01/06/2020 SERVICE TIME: 10:06 AM Hospital Medicine/Primary Attending: Chandan Tavarez MD NIGHT AND WEEKEND COVERAGE: From 7am - 7pm, please call [phone] After 7pm, please call cross cover pager #[phone] Subjective INTERVAL HPI: Reports feeling better. Denied [...] (Order Panel) 81 mg ORAL DAILY 01/03/20 175 -- 01/03/20 1800 heparin iv infusion (LOW DOSE ACS/NOMOGRAM) 25,000 units in NaCl 0.45% 250 mL PREMIX (Heparin Infusion + Rate Change Bolus) 0-30 mL/hr 0-3,000 Units/hr INTRAVENOUS CONTINUOUS 01/03/20 175 -- 01/03/20 1800 vte non-pharmacologic prophylaxis - none indicated (ca,ny) 01/03/20 1800 vte current anticoag therapy ([place]) 01/03/20 1800 activity - mobilize patient ([place]) VTE Prophylaxis: VTE prophylaxis appropriate Disposition: Home Plan of care discussed with: Patient SIGNATURE: Chandan Tavarez MD PATIENT NAME: Concha Woodward DATE: January 06, 2020 TIME: 10:06 AM PAGER/CONTACT #: [phone] [phone] Nettie Cheng APRN.LENS GRINDER ROUGH, LENS GRINDER ROUGH 01/06/2020 11:42 AM Signed CARDIOLOGY CONSULT PROGRESS NOTE CARDIOLOGY ATTENDING: Dr. Phillips INTERVAL HISTORY: History of present illness copied and updated 84 year old female PMH T2DM, CAD s/p PCI 30 years ago, CVA on Plavix who was admitted for coronary artery bypass graft eval after presenting as a STEMI to [place]. ? She had been having URI sxs for the last week and was being treated with a 10 day course of amoxicillin. She had associated dry cough and intermittent SOB. Over the last 3 days she's been having bilateral arm pain, that radiated to her chest. She described it as a pressure. She presented to the [place] ED. EKG done in the emergency room revealed Q waves in III and aVF along with ST elevation. It was felt that patient was presenting late with acute ST elevation [place] but due to ongoing chest pain that was about 2/10 in intensity she was evaluated and brought emergently to the cardiac [facility] for coronary angiography. Coronary angiography revealed multivessel coronary artery disease with MARTIN-3 flow in all the vessels and she was transferred to [facility] for CABG evaluation. Of note, she takes Plavix at home for her hx CVA and did receive Brilinta in the ED . Transthoracic echocardiogram done at [place] showed left ventricular ejection fraction of 30%, [...] 01/03/2020 HDL Cholesterol 42 01/03/2020 LDL Chol, [place] 99 01/03/2020 ASSESSMENT AND PLAN: 1. 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 7. Carotid stenosis: Management by CT surgery Patient is on heparin drip, aspirin and statin Planning: General cardiology will sign off at this time SIGNATURE:Nettie Cheng APRN.LENS GRINDER ROUGH PAGER: DATE / TIME of SERVICE: January 05, 2020 11:13 AM This note is not final until Authenticated by responsible provider. Melisa Reza APRN.THIAGO, LENS GRINDER ROUGH 01/06/2020 1:31 PM Signed CARDIOTHORACIC SURGERY POSTOP PROGRESS NOTE SERVICE DATE: 01/06/2020 SERVICE TIME: 12:23 PM Subjective S/P SURGERY: Procedure(s) (LRB): DATE OF SURGERY: 01/09/2020 LOS: 3 HPI: This is a 84 years old woman who was transferred from [facility] after presenting with resting chest pain [...] later time), STEMI protocol was activated in [place] and patient was given Hep Gtt and Brilinta prior undergoing HC. HC revealed severe MV CAD. Echo performed in [place] on showed: Normal LV size with moderate segmental systolic dysfunction, EF 30%. 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 There is also a 2+MR (no valvular mechanism mentioned) noted without other valvular lesions mentioned. She was recommended to be transferred to [facility] for CABG evaluation. This is a 84 yof who is found to have NSTEMI with PMH of CAD, FL s/p angioplasty (30 yrs ago), T2DM on insulin, HTN, HLD, CVA 5 yrs ago (no known etiology) with mild left side deficit residual complicated with occasional falls, and CKD 2-3. She also has an intracranial meningioma s/p gamma knife (this was dx in 10/2008 via MRI to evaluate DZ. GKRS was 08/14/2013), and follows physician up at [facility] with surveillance brain scan now tapered down to every 4 years as the size of the meningioma has been reducing. She is a lifelong nonsmoker without no known COPD, no CHF or cardiac arrhythmia and known to patient. She denies recurrence FL since 32 yo ago and has not [...] cancers. FH:+CAD in both parents, both from [place] in 70-80s. SH: lifelong non smoker, no [...] Neurologic/Psychiatric: oriented to time, place and person, rrt strength with 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 on the left [...] consultation - will continue review with Dr. Rivera regarding the work-up findings. Tests/Labs Ordered: 1. None SIGNATURE: Melisa Reza APRN.CNP PATIENT NAME: Concha Woodward DATE: January 06, 2020 TIME: 12:23 PM PAGER/CONTACT #:[phone] Melisa Reza APRN.CNP, CNP 01/08/2020 10:58 AM Signed [facility] Surgery Pre-Op Open Heart Check List Patient Info: Concha Woodward 1935 84 year old Bactrim [Sulfamethoxazole-Trime thoprim]; Codeine; Prednisone; Statins [Ufyjumb-Tbv-Tbb Reductase Inhibitors]; Ultram [Tramadol Hcl] HPI: This is a 84 years old woman who was transferred from [facility] after presenting with resting chest pain [...] later time), STEMI protocol was activated in [place] and patient was given Hep Gtt and Brilinta prior undergoing HC. HC revealed severe MV CAD. Echo performed in [place] on showed: Normal LV size with moderate segmental systolic dysfunction, EF 30%. 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 There is also a 2+MR (no valvular mechanism mentioned) noted without other valvular lesions mentioned. She was recommended to be transferred to [facility] for CABG evaluation. This is a 84 yof who is found to have NSTEMI with PMH of CAD, FL s/p angioplasty (30 yrs ago), T2DM on insulin, HTN, HLD, CVA 5 yrs ago (no known etiology) with mild left side deficit residual complicated with occasional falls, and CKD 2-3. She also has an intracranial meningioma s/p gamma knife (this was dx in 10/2008 via MRI to evaluate DZ. GKRS was 08/14/2013), and follows physician up at [facility] with surveillance brain scan now tapered down to every 4 years as the size of the meningioma has been reducing. She is a lifelong nonsmoker without no known COPD, no CHF or cardiac arrhythmia and known to patient. She denies recurrence FL since 32 yo ago and has not had any hospitalization related to CHF or arrhythmia. She denies N/V, diaphoresis, chest palpitation, orthopnea, paroxysmal nocturnal dyspnea, lower extremity edema, presyncope, syncope. She claims to be an active person going to gym 3 times a week. But did noted some SOB recently (more content not included)... Normal [facility] Hemogramon 01-03-2020 Erythrocyte distribution width (RBC) [Ratio] 13.2 % Normal 11.7-14.4 [facility] Comment on above: Performed By: #### C BC1 #### [address] [address] Hematocrit (Bld) [Volume fraction] 38.4 % Normal 34.1-44.9 [facility] Comment on above: Performed By: #### C BC1 #### [address] [address] Hemoglobin (Bld) [Mass/Vol] 13.0 g/dL Normal 11.2-15.7 [facility] Comment on above: Performed By: #### C BC1 #### [address] [address] MCH (RBC) [Entitic mass] 30.2 pg Normal 25.6-32.2 [facility] Comment on above: Performed By: #### C BC1 #### [facility] [address] [place], [place] [address] MCHC (RBC) [Mass/Vol] 33.9 % Normal 31.6-34.8 [facility] Comment on above: Performed By: #### C BC1 #### [facility] [address] [place], [place] [address] MCV (RBC) [Entitic vol] 89.1 fL Normal 79.4-94.8 [facility] Comment on above: Performed By: #### C BC1 #### [facility] [address] [place] [address] Platelet mean volume (Bld) [Entitic vol] 11.2 fL Normal 9.4-12.3 [facility] Comment on above: Performed By: #### C BC1 #### [facility] [address] [place], [place] [address] Platelets (Bld) [#/Vol] 315 thou/cmm Normal 182-369 [facility] Comment on above: Performed By: #### C BC1 #### [facility] [address] [place] [address] RBC (Bld) [#/Vol] 4.31 mil/cmm Normal 3.93-5.22 [facility] Comment on above: Performed By: #### C BC1 #### [facility] [address] [place], [place] [address] RDW SD 43.4 fl Normal 36.4-46.3 [facility] Comment on above: Performed By: #### C BC1 #### [facility] [address] [place], [place] [address] WBC (Bld) [#/Vol] 10.82 thou/cmm High 3.98-10.04 [facility] Comment on above: Performed By: #### C BC1 #### [facility] [address] [place] [address] Hgb A1con 01-03-2020 HbA1c (Bld) [Mass fraction] 8.4 % High 4.2-6.3 [facility] Comment on above: Result Comment: Meth od is National Glycohemoglobin Standardization Program (NGSP) compliant. Performed By: #### H A1C #### [facility] [address] [place], [place] [address] HbA1c (Bld) [Mass fraction] 194 mg/dl Normal [facility] Comment on above: Performed By: #### H A1C #### [facility] [address] [place], [place] [address] Lipid Profileon 01-03-2020 Cholesterol in HDL [Mass/Vol] 42 mg/dL Normal >40 [facility] Comment on above: Performed By: #### L IPD2 #### [facility] [address] [place], [place] [address] Cholesterol in LDL [Mass/Vol] 99 mg/dL Normal [facility] Comment on above: Result Comment: No C AD and with fewer than 2 CAD risk factors <160 mg/dL No CAD but with 2 or more CAD risk factors <130 mg/dL Definite CAD or other atherosclerotic disease <100 mg/dL Performed By: #### L IPD2 #### [facility] [address] [place], [place] [address] Cholesterol in LDL/Cholesterol in HDL [Mass ratio] 2.4 Normal 0.6-3.6 [facility] Comment on above: Result Comment: LDL, VLDL,LDL/HDL, Invalid if Triglyceride >400 Performed By: #### L IPD2 #### [facility] [address] [place], [place] [address] Cholesterol.total/Tanya sterol in HDL [Mass ratio] 5.0 {ratio} Normal 1.8-5.3 [facility] Comment on above: Performed By: #### L IPD2 #### [facility] [address] [place], [place] [address] Cholesterol in VLDL [Mass/Vol] 67 mg/dL Normal <50 Desired [facility] Comment on above: Performed By: #### L IPD2 #### [facility] [address] [place], [place] [address] Triglyceride [Mass/Vol] 334 mg/dL High 0-149 [facility] Comment on above: Result Comment: < 20 0 Desirable Result invalid if not a fasting specimen. Performed By: #### L IPD2 #### [facility] [address] [place], [place] [address] Cholesterol [Mass/Vol] 208 mg/dL High 0-199 [facility] Comment on above: Result Comment: <200 Desirable 200-240 Borderline >240 High Performed By: #### L IPD2 #### [facility] [address] [place], [place] [address] MRSA Screenon 01-03-2020 MRSA DNA MARIS+probe Ql (Unsp spec) Test performed at [facility] No MRSA detected. Normal [facility] Comment on above: Performed By: #### P T #### [facility] [address] [place], [place] [address] N-terminal Pro-BNPon 020 Natriuretic peptide B (Bld) [Mass/Vol] 9817 pg/mL Normal [facility] Comment on above: Result Comment: Norm al Reference Range: Patients <75 yrs old <125pg/ml Patients >=75 yrs old <450 pg/ml Performed By: #### P BNP #### [facility] [address] [place], [place] [address] Protimeon 01-03-2020 INR Coag (PPP) [Relative time] 0.94 {INR} Normal 0.90-1.30 [facility] Comment on above: Result Comment: Camille min K Antagonist (VKA) Therapeutic Range: INR 2 to 3 (Target INR of 2.5) Note: For patients treated with VKA drugs, such as warfarin, the [place] [employer] 2012 Guideline recommends [...] 2.5 to 3.5 target INR of 3). Zahc GH, et al. Chest 2012; 141:7S-47S Tomi RA et al. JACC 2017; 70: 252-289 Performed By: #### P T #### [facility] [address] [place], [place] [address] PT Coag (PPP) [Time] 10.2 s Normal 9.7-13.0 [facility] Comment on above: Performed By: #### P T #### [facility] [address] [place], [place] [address] Troponin Ion 01-03-2020 Troponin I.cardiac [Mass/Vol] 33.700 ng/mL Critically high 0.015-0.045 [facility] Comment on above: Performed By: #### T ROP #### [facility] [address] [place], [place] [address] Culture, urine Bacteria identified Cx Nom (U) Positive [facility] Work Phone: Vital Signs Date Time Vital Sign Value Performing Clinician Facility 06-02-2025 10:06-0400 Body mass index (BMI) [Ratio] 30.58 kg/m2 Clement Cortes APRN.LENS GRINDER ROUGH Work Phone: [facility] 06-02-2025 10:06-0400 Body temperature 97 [degF] Clement Cortes APRN.LENS GRINDER ROUGH Work Phone: [facility] 06-02-2025 10:06-0400 Body weight 74.9 kg Clement Cortes APRN.LENS GRINDER ROUGH Work Phone: [facility] 06-02-2025 10:06-0400 Diastolic blood pressure 66 mm[Hg] Clement Cortes APRN.LENS GRINDER ROUGH Work Phone: [facility] 06-02-2025 10:06-0400 Heart rate 72 /min Clement Cortes APRN.LENS GRINDER ROUGH Work Phone: [facility] 06-02-2025 10:06-0400 Respiratory rate 16 /min Clement Cortes APRN.LENS GRINDER ROUGH Work Phone: [facility] 06-02-2025 10:06-0400 SaO2% (BldA) [Mass fraction] 95 % Clement Cortes APRN.LENS GRINDER ROUGH Work Phone: [facility] 06-02-2025 10:06-0400 Systolic blood pressure 124 mm[Hg] Clement Cortes FAMILY INTERVENTION SPECIALIST.LENS GRINDER ROUGH Work Phone: [facility] 05-14-2025 13:37-0400 Body height 156.5 cm Ishmael Davis FAMILY INTERVENTION SPECIALIST.NUCLEAR MEDICINE TECH Work Phone: [facility] 05-14-2025 13:37-0400 Body mass index (BMI) [Ratio] 30.54 kg[facility].NUCLEAR MEDICINE TECH Work Phone: [facility] 05-14-2025 13:37-0400 Body weight 74.8 [facility] SPECIAL[facility].NUCLEAR MEDICINE TECH Work Phone: [facility] 05-14-2025 13:37-0400 Diastolic blood pressure 77 mm[Hg] [facility] FAMILY INTERVENTION SPECIALIST.NUCLEAR MEDICINE TECH Work Phone: [facility] 05-14-2025 13:37-0400 Heart rate 69 /min [facility] FAMILY INTERVENTION SPECIALIST.NUCLEAR MEDICINE TECH Work Phone: [facility] 05-14-2025 13:37-0400 SaO2% (BldA) [Mass fraction] 96 % [facility] FAMILY INTERVENTION SPECIALIST.NUCLEAR MEDICINE TECH Work Phone: [facility] 05-14-2025 13:37-0400 Systolic blood pressure 152 mm[Hg] [facility] FAMILY INTERVENTION SPECIALIST.NUCLEAR MEDICINE TECH Work Phone: [facility] 04-30-2025 15:35-0400 Diastolic blood pressure 74 mm[Hg] Dr. Anju Pearce MD Work Phone: [facility] 04-30-2025 15:35-0400 Systolic blood pressure 174 mm[Hg] Dr. Anju Pearce MD Work Phone: [facility] 04-30-2025 15:26-0400 Body height 160.[address] Anju Pearce MD Work Phone: [facility] 04-30-2025 15:26-0400 Body mass index (BMI) [Ratio] 29 kg/m2 Dr. Anju Pearce MD Work Phone: [facility] 04-30-2025 15:26-0400 Body weight 74.[address] Anju Pearce MD Work Phone: [facility] 04-30-2025 15:26-0400 Heart rate 77 /min Dr. Anju Pearce MD Work Phone: [facility] 04-30-2025 15:26-0400 Respiratory rate 16 /min Dr. Anju Pearce MD Work Phone: [facility] 02-19-2025 12:00-0400 Diastolic blood pressure 69 mm[Hg] Ishmael Davis FAMILY INTERVENTION SPECIALIST.NUCLEAR MEDICINE TECH Work Phone: [facility] 02-19-2025 12:00-0400 Heart rate 80 /min Ishmael Davis FAMILY INTERVENTION SPECIALIST.NUCLEAR MEDICINE TECH Work Phone: [facility] 02-19-2025 12:00-0400 Respiratory rate 16 /min Ishmael Davis FAMILY INTERVENTION SPECIALIST.NUCLEAR MEDICINE TECH Work Phone: [facility] 02-19-2025 12:00-0400 Systolic blood pressure 163 mm[Hg] Ishmael Davis FAMILY INTERVENTION SPECIALIST.NUCLEAR MEDICINE TECH Work Phone: [facility] 02-19-2025 09:07-0400 Body mass index (BMI) [Ratio] 31.36 kg/m2 Caridad Anglin FAMILY INTERVENTION SPECIALIST.LENS GRINDER ROUGH Work Phone: [facility] 02-19-2025 09:07-0400 Body temperature 97 [degF] Caridad Anglin FAMILY INTERVENTION SPECIALIST.LENS GRINDER ROUGH Work Phone: [facility] 02-19-2025 09:07-0400 Body weight 76.8 kg Caridad Anglin FAMILY INTERVENTION SPECIALIST.L[employer] GRINDER ROUGH Work Phone: [facility] 02-19-2025 09:07-0400 Diastolic blood pressure 70 mm[Hg] Caridad Anglin FAMILY INTERVENTION SPECIALIST.LENS GRINDER ROUGH Work Phone: [facility] 02-19-2025 09:07-0400 Heart rate 83 /min Caridad Anglin FAMILY INTERVENTION SPECIALIST.LENS GRINDER ROUGH Work Phone: [facility] 02-19-2025 09:07-0400 Respiratory rate 18 /min Caridad Anglin FAMILY INTERVENTION SPECIALIST.LENS GRINDER ROUGH Work Phone: [facility] 02-19-2025 09:07-0400 SaO2% (BldA) [Mass fraction] 96 % Caridad Anglin FAMILY INTERVENTION SPECIALIST.LENS GRINDER ROUGH Work Phone: [facility] 02-19-2025 09:07-0400 Systolic blood pressure 159 mm[Hg] Caridad Anglin FAMILY INTERVENTION SPECIALIST.L[employer] GRINDER ROUGH Work Phone: [facility] 01-16-2025 12:39-0400 Body height 156.5 cm Anju Pearce MD Work Phone: [facility] 01-16-2025 12:39-0400 Body mass index (BMI) [Ratio] 30.13 kg/m2 Anju Pearce MD Work Phone: [facility] 01-16-2025 12:39-0400 Body temperature 97 [degF] Anju Pearce MD Work Phone: [facility] 01-16-2025 12:39-0400 Body weight 73.8 kg Anju Pearce MD Work Phone: [facility] 01-16-2025 12:39-0400 Diastolic blood pressure 80 mm[Hg] Anju Pearce MD Work Phone: [facility] 01-16-2025 12:39-0400 Heart rate 80 /min Anju Pearce MD Work Phone: [facility] 01-16-2025 12:39-0400 Respiratory rate 16 /min Anju Pearce MD Work Phone: [facility] 01-16-2025 12:39-0400 Systolic blood pressure 150 mm[Hg] Anju Pearce MD Work Phone: [facility] 01-05-2025 13:49-0500 Body temperature 97.9 [degF] Dr. Anju Pearce MD Work Phone: [facility] 01-05-2025 13:49-0500 Diastolic blood pressure 81 mm[Hg] Dr. Anju Pearce MD Work Phone: [facility] 01-05-2025 13:49-0500 Heart rate 68 /min Dr. Anju Pearce MD Work Phone: [facility] 01-05-2025 13:49-0500 Respiratory rate 18 /min Dr. Anju Pearce MD Work Phone: [facility] 01-05-2025 13:49-0500 SaO2% (BldA) [Mass fraction] 96 % Dr. Anju Pearce MD Work Phone: [facility] 01-05-2025 13:49-0500 Systolic blood pressure 161 mm[Hg] Dr. Anju Pearce MD Work Phone: [facility] 01-05-2025 11:12-0500 Body mass index (BMI) [Ratio] 30.9 kg/m2 Dr. Anju Pearce MD Work Phone: [facility] 01-05-2025 11:12-0500 Body weight 79.[address] Anju Pearce MD Work Phone: [facility] 09-12-2024 13:00-0500 Body mass index (BMI) [Ratio] 30.46 kg/m2 Ishmael Davis FAMILY INTERVENTION SPECIALIST.NUCLEAR MEDICINE TECH Work Phone: [facility] 09-12-2024 13:00-0500 Body weight 78 kg Ishmael Davis FAMILY INTERVENTION SPECIALIST.NUCLEAR MEDICINE TECH Work Phone: [facility] 09-12-2024 13:00-0500 Diastolic blood pressure 67 mm[Hg] Ishmael Davis FAMILY INTERVENTION SPECIALIST.NUCLEAR MEDICINE TECH Work Phone: [facility] 09-12-2024 13:00-0500 Heart rate 80 /min Ishmael Davis FAMILY INTERVENTION SPECIALIST.NUCLEAR MEDICINE TECH Work Phone: [facility] 09-12-2024 13:00-0500 Respiratory rate 16 /min Ishmael Davis FAMILY INTERVENTION SPECIALIST.NUCLEAR MEDICINE TECH Work Phone: [facility] 09-12-2024 13:00-0500 Systolic blood pressure 150 mm[Hg] Ishmael Davis FAMILY INTERVENTION SPECIALIST.NUCLEAR MEDICINE TECH Work Phone: [facility] 05-12-2024 13:08-0400 Diastolic blood pressure 68 mm[Hg] Ishmael Davis FAMILY INTERVENTION SPECIALIST.NUCLEAR MEDICINE TECH Work Phone: [facility] 05-12-2024 13:08-0400 Heart rate 69 /min Ishmael Davis FAMILY INTERVENTION SPECIALIST.NUCLEAR MEDICINE TECH Work Phone: [facility] 05-12-2024 13:08-0400 Systolic blood pressure 147 mm[Hg] Ishmael Davis FAMILY INTERVENTION SPECIALIST.NUCLEAR MEDICINE TECH Work Phone: [facility] 05-12-2024 13:07-0400 Body mass index (BMI) [Ratio] 30.47 kg/m2 Ishmael Davis FAMILY INTERVENTION SPECIALIST.NUCLEAR MEDICINE TECH Work Phone: [facility] 05-12-2024 13:07-0400 Body weight 78.02 kg Ishmael Davis FAMILY INTERVENTION SPECIALIST.NUCLEAR MEDICINE TECH Work Phone: [facility] 05-12-2024 13:07-0400 Respiratory rate 16 /min Ishmael Davis FAMILY INTERVENTION SPECIALIST.NUCLEAR MEDICINE TECH Work Phone: [facility] 01-11-2024 13:54-0500 Diastolic blood pressure 68 mm[Hg] Anju Pearce MD Work Phone: [facility] 01-11-2024 13:54-0500 Systolic blood pressure 128 mm[Hg] Anju Pearce MD Work Phone: [facility] 09-20-2023 13:14-0500 Diastolic blood pressure 68 mm[Hg] Ishmael Davis FAMILY INTERVENTION SPECIALIST.NUCLEAR MEDICINE TECH Work Phone: [facility] 09-20-2023 13:14-0500 Heart rate 75 /min Ishmael Davis FAMILY INTERVENTION SPECIALIST.NUCLEAR MEDICINE TECH Work Phone: [facility] 09-20-2023 13:14-0500 Systolic blood pressure 145 mm[Hg] Ishmael Davis FAMILY INTERVENTION SPECIALIST.NUCLEAR MEDICINE TECH Work Phone: [facility] 09-20-2023 13:13-0500 Body weight 77.56 kg Ishmael Davis FAMILY INTERVENTION SPECIALIST.NUCLEAR MEDICINE TECH Work Phone: [facility] 09-20-2023 13:13-0500 Respiratory rate 16 /min Ishmael Davis FAMILY INTERVENTION SPECIALIST.NUCLEAR MEDICINE TECH Work Phone: [facility] 09-05-2023 11:46-0400 Diastolic blood pressure 68 mm[Hg] Iesha Bairon FAMILY INTERVENTION SPECIALIST.LENS GRINDER ROUGH Work Phone: [facility] 09-05-2023 11:46-0400 Heart rate 80 /min Iesha Bairon FAMILY INTERVENTION SPECIALIST.LENS GRINDER ROUGH Work Phone: [facility] 09-05-2023 11:46-0400 Systolic blood pressure 156 mm[Hg] Iesha Bairon FAMILY INTERVENTION SPECIALIST.LENS GRINDER ROUGH Work Phone: [facility] 09-05-2023 11:44-0400 Body weight 78.02 kg Iesha Bairon FAMILY INTERVENTION SPECIALIST.L[employer] GRINDER ROUGH Work Phone: [facility] 09-05-2023 11:44-0400 SaO2% (BldA) [Mass fraction] 98 % Iesha Bairon FAMILY INTERVENTION SPECIALIST.L[employer] GRINDER ROUGH Work Phone: [facility] 08-23-2023 14:43-0400 Diastolic blood pressure 77 mm[Hg] Ishmael Davis FAMILY INTERVENTION SPECIALIST.NUCLEAR MEDICINE TECH Work Phone: [facility] 08-23-2023 14:43-0400 Heart rate 71 /min Ishmael Davis FAMILY INTERVENTION SPECIALIST.NUCLEAR MEDICINE TECH Work Phone: [facility] 08-23-2023 14:43-0400 Systolic blood pressure 160 mm[Hg] Ishmael Davis FAMILY INTERVENTION SPECIALIST.NUCLEAR MEDICINE TECH Work Phone: [facility] 08-23-2023 14:39-0400 Body weight 75.75 kg Ishmael Davis FAMILY INTERVENTION SPECIALIST.NUCLEAR MEDICINE TECH Work Phone: [facility] 08-23-2023 14:39-0400 Respiratory rate 16 /min Ishmael Davis FAMILY INTERVENTION SPECIALIST.NUCLEAR MEDICINE TECH Work Phone: [facility] 08-14-2023 17:36-0400 Diastolic blood pressure 80 mm[Hg] Anju Pearce MD Work Phone: [facility] 08-14-2023 17:36-0400 Systolic blood pressure 150 mm[Hg] Anju Pearce MD Work Phone: [facility] 08-14-2023 16:43-0400 Body temperature 96.1 [degF] Anju Pearce MD Work Phone: [facility] 08-14-2023 16:43-0400 Body weight 75.75 kg Anju Pearce MD Work Phone: [facility] 08-14-2023 16:43-0400 Heart rate 79 /min Anju Pearce MD Work Phone: [facility] 08-14-2023 16:43-0400 Respiratory rate 18 /min Anju Pearce MD Work Phone: [facility] 08-14-2023 16:43-0400 SaO2% (BldA) [Mass fraction] 97 % Anju Pearce MD Work Phone: [facility] 07-21-2023 10:42-0400 Body temperature 98.2 [degF] Clement Cortes APRN.L[employer] GRINDER ROUGH Work Phone: [facility] 07-21-2023 10:42-0400 Body weight 74.84 kg Clement Cortes APRN.L[employer] GR[employer]ER ROUGH Work Phone: [facility] 07-21-2023 10:42-0400 Diastolic blood pressure 94 mm[Hg] Clement Cortes APRN.[employer] GR[employer]ER ROUGH Work Phone: [facility] 07-21-2023 10:42-0400 Heart rate 104 /min Clement Cortes APRN.[employer] GR[employer] ROUGH Work Phone: [facility] 07-21-2023 10:42-0400 Respiratory rate 18 /min Clement Cortes APRN.L[employer] GR[employer]ER ROUGH Work Phone: [facility] 07-21-2023 10:42-0400 SaO2% (BldA) [Mass fraction] 97 % Clement Cortes APRN.L[employer] GR[employer]ER ROUGH Work Phone: [facility] 07-21-2023 10:42-0400 Systolic blood pressure 152 mm[Hg] Clement Cortes FAMILY INTERVENTION SPECIALIST.L[employer] GRINDER ROUGH Work Phone: [facility] 01-09-2023 14:13-0500 Body temperature 98.29 [degF] Anju Pearce MD Work Phone: [facility] 01-09-2023 14:13-0500 Body weight 78.93 kg Anju Pearce MD Work Phone: [facility] 01-09-2023 14:13-0500 Diastolic blood pressure 72 mm[Hg] Anju Pearce MD Work Phone: [facility] 01-09-2023 14:13-0500 Heart rate 78 /min Anju Pearce MD Work Phone: [facility] 01-09-2023 14:13-0500 Respiratory rate 18 /min Anju Pearce MD Work Phone: [facility] 01-09-2023 14:13-0500 SaO2% (BldA) [Mass fraction] 97 % Anju Pearce MD Work Phone: [facility] 01-09-2023 14:13-0500 Systolic blood pressure 122 mm[Hg] Anju Pearce MD Work Phone: [facility] 01-01-2023 13:33-0500 Diastolic blood pressure 71 mm[Hg] Iesha Bairon FAMILY INTERVENTION SPECIALIST.LENS GRINDER ROUGH Work Phone: [facility] 01-01-2023 13:33-0500 Systolic blood pressure 148 mm[Hg] Iesha Bairon FAMILY INTERVENTION SPECIALIST.L[employer] GRINDER ROUGH Work Phone: [facility] 01-01-2023 13:31-0500 Body weight 78.93 kg Iesha Bairon FAMILY INTERVENTION SPECIALIST.L[employer] GRINDER ROUGH Work Phone: [facility] 01-01-2023 13:31-0500 Heart rate 71 /min Iesha Bairon FAMILY INTERVENTION SPECIALIST.L[employer] GRINDER ROUGH Work Phone: [facility] 01-01-2023 13:31-0500 SaO2% (BldA) [Mass fraction] 98 % Iesha Waddell APRN.CNP Work Phone: [facility] 10-03-2022 13:54-0500 Body height 160.[address] Anju Pearce Work Phone: [facility] 10-03-2022 13:54-0500 Body mass index (BMI) [Ratio] 30.1 kg/m2 Dr. Anju Pearce Work Phone: 3(522)099-622769 [place] [address] 10-03-2022 13:54-0500 Body temperature 97.6 [degF] Dr. Anju Pearce Work Phone: 7(647)194-228469 [place] [address] 10-03-2022 13:54-0500 Body weight 77.[address] Anju Pearce Work Phone: 9(491)301-895969 [place] [address] 10-03-2022 13:54-0500 Diastolic blood pressure 96 mm[Hg] Dr. Anju Pearce Work Phone: 3(739)445-815869 [place] [address] 10-03-2022 13:54-0500 Heart rate 74 /min Dr. Anju Pearce Work Phone: 1(420)134-606469 [place] [address] 10-03-2022 13:54-0500 Respiratory rate 16 /min Dr. Anju Pearce Work Phone: [facility] 10-03-2022 13:54-0500 SaO2% (BldA) [Mass fraction] 97 % Dr. Anju Pearce Work Phone: [facility] 10-03-2022 13:54-0500 Systolic blood pressure 170 mm[Hg] Dr. Anju Pearce Work Phone: [facility] 07-13-2022 15:19-0400 Body height 157.[address] Anju Pearce Work Phone: [facility] Work Phone: 07-13-2022 15:14-0400 Body mass index (BMI) [Ratio] 31.6 kg/m2 Dr. Anju Pearce Work Phone: [facility] Work Phone: 07-13-2022 15:14-0400 Body weight 78.[address] Anju Pearce Work Phone: [facility] Work Phone: 07-13-2022 15:14-0400 Diastolic blood pressure 76 mm[Hg] Dr. Anju Pearce Work Phone: [facility] Work Phone: 07-13-2022 15:14-0400 Systolic blood pressure 134 mm[Hg] Dr. Anju Pearce Work Phone: [facility] Work Phone: 06-25-2022 09:12-0400 Body temperature 98.2 [degF] Patsy Geo FAMILY INTERVENTION SPECIALIST.LENS GRINDER ROUGH Work Phone: [facility] 06-25-2022 09:12-0400 Body weight 79.38 kg Patsy Geo FAMILY INTERVENTION SPECIALIST.LENS GRINDER ROUGH Work Phone: [facility] 06-25-2022 09:12-0400 Diastolic blood pressure 78 mm[Hg] Patsy Geo FAMILY INTERVENTION SPECIALIST.LENS GRINDER ROUGH Work Phone: [facility] 06-25-2022 09:12-0400 Heart rate 96 /min Patsy Geo FAMILY INTERVENTION SPECIALIST.LENS GRINDER ROUGH Work Phone: [facility] 06-25-2022 09:12-0400 Respiratory rate 18 /min Patsy Geo FAMILY INTERVENTION SPECIALIST.LENS GRINDER ROUGH Work Phone: [facility] 06-25-2022 09:12-0400 SaO2% (BldA) [Mass fraction] 97 % Patsy Geo FAMILY INTERVENTION SPECIALIST.LENS GRINDER ROUGH Work Phone: [facility] 06-25-2022 09:12-0400 Systolic blood pressure 142 mm[Hg] Patsy Geo FAMILY INTERVENTION SPECIALIST.LENS GRINDER ROUGH Work Phone: [facility] 01-10-2020 06:24-0500 Body temperature 36.7 Deg [facility] Comment on above: Performed By: #### PBNP #### [facility] [address] [place], [place] [address] 01-09-2020 16:36-0500 Body temperature 36.0 Deg [facility] Comment on above: Performed By: #### [id number] #### [facility] [address] [place], [place] [address] Encounters Encounter Date Encounter Type Care Provider Facility Start: 06-02-2025 End: 06-02-2025 Patient encounter procedure Clement Byron SWARTZLENS GRINDER ROUGH Work Phone: [facility] Comment on above: Pelvic pain (Primary Dx); Hematuria, unspecified type Start: 06-02-2025 End: 06-02-2025 [facility] Start: 05-14-2025 End: 05-14-2025 ambulatory ISHMAEL DAVIS Facility:[facility] Start: 05-14-2025 End: 05-14-2025 Patient encounter procedure Ishmael Duncankesha ELI.NUCLEAR MEDICINE TECH Work Phone: [facility] Comment on [...] Start: 05-13-2025 End: 05-13-2025 ambulatory ANJU D JEANIEAMPAS Facility:[facility] Start: 05-06-2025 End: 05-11-2025 ambulatory Lynn Holliday MA [facility] Start: 05-06-2025 End: 05-11-2025 Patient encounter procedure Lynn Holliday MA [facility] Comment on above: Population Health Na vigation Outreach ([employer] [employer] [facility] ) Start: 04-30-2025 End: 04-30-2025 Patient encounter procedure [facility] Work Phone: Start: 04-30-2025 End: 04-30-[address] Anju Pearce MD Work Phone: [facility] Work Phone: Start: 04-21-2025 End: 04-21-2025 Telephone encounter Anju Pearce MD Work Phone: [facility] Comment on above: Patient Question Refill Request Start: 04-01-2025 End: 04-02-2025 Telephone encounter Anju Pearce MD Work Phone: [facility] [place] Comment on above: Medication Request Start: 03-18-2025 End: 03-18-2025 Refill Anju Pearce MD Work Phone: [address] [place] [address] Comment on above: Refill Request Start: 03-02-2025 End: 05-02-2025 Follow-up encounter Ishmael Davis APRN.NUCLEAR MEDICINE TECH Work Phone: [facility] Start: 02-27-2025 End: 04-29-2025 Follow-up encounter Ishmael Davis APRN.NUCLEAR MEDICINE TECH Work Phone: [facility] Start: 02-27-2025 End: 02-27-2025 ambulatory ANJU PEARCE Facility:[facility] Start: 02-20-2025 End: 02-20-2025 Follow-up encounter Reese Ga APRN.L[employer] GRINDER ROUGH Work Phone: [facility] Start: 02-19-2025 End: 02-19-2025 Office outpatient visit 25 minutes Ishmael Davis APRN.NUCLEAR MEDICINE TECH Work Phone: [facility] [place] Comment on above: Pleural effusion (Pr imary Dx); Chronic heart failure with preserved ejection fraction (HCC); Type 2 diabetes mellitus with stage 3b chronic kidney disease, with long-term current use of insulin (HCC); Hyperlipidemia, unspecified hyperlipidemia type Start: 02-19-2025 End: 02-19-2025 ambulatory ISHMAEL DAVIS Facility:[facility] Start: 02-19-2025 End: 02-19-2025 Subsequent hospital visit by physician Xr [facility] [place] Work Phone: Radiology Comment on above: Acute cough [R05.1] Start: 02-19-2025 End: 02-19-2025 Patient encounter procedure Caridad Anglin WARD Work Phone: [facility] Comment on above: wheezing (Primary Dx ); Exposure to influenza; Viral illness; Edema, unspecified type Start: 02-19-2025 End: 02-19-2025 ambulatory ANJU PEARCE Facility:[facility] Start: 01-19-2025 End: 01-19-2025 ambulatory Lynn Holliday MA [facility] Start: 01-19-2025 End: 01-19-2025 Patient encounter procedure Lynn Holliday MA [facility] Comment on above: Population Health Na vigation Outreach ( [facility] Start: 01-18-2025 End: 01-19-2025 ambulatory Anju Pearce MD Work Phone: [facility] Comment on above: Plavix Start: 01-16-2025 End: 01-16-2025 ambulatory ANJU PEARCE Facility:[facility] Start: 01-16-2025 End: 01-16-2025 Office outpatient visit 25 minutes Anju Pearce MD Work Phone: [facility] [place] Comment on above: Type 2 diabetes britni [...] hyperlipidemia; Mild anemia Start: 01-07-2025 End: 01-08-2025 Refill Anju Pearce MD Work Phone: [facility] [place] Comment on above: Med Change Request Start: [...] Phone: [facility] Comment on above: Handicap Placard Start: 10-23-2024 ambulatory Harris Kessler [facility] Start: 10-23-2024 End: 10-23-2024 ambulatory Marika PADILLA Facility:[facility] Start: 09-22-2024 End: 09-22-2024 ambulatory Anju Pearce Facility:[facility] Start: 09-17-2024 End: 09-18-2024 ambulatory Anju Pearce MD Work Phone: [facility] Comment on above: NT Pro BNP Start: [...] Start: 09-12-2024 End: 09-12-2024 ambulatory ANJU PEARCE Facility:[facility] Start: 08-07-2024 End: 08-07-2024 Refill Anju Pearce MD Work Phone: [facility] Comment on above: Refill Request Start: 06-20-2024 End: 06-21-2024 Telephone encounter Anju Pearce MD Work Phone: [facility] Comment on above: Medication Problem Start: 06-19-2024 Telephone encounter Anju constantino MD Work Phone: [facility] Comment on above: Medication Problem Start: 05-12-2024 End: 05-12-2024 Office outpatient visit 25 minutes Ishmael Davis APRN.CNS Work Phone: [facility] [place] Comment on above: Screening for diabet ic [...] ear canals Start: 01-16-2024 Refill Iesha Waddell APRN.[employer] GR[employer]ER ROUGH Work Phone: [facility] [place] Comment on above: Med Change Request Start: [...] of medication Start: 12-26-2023 End: 12-26-2023 ambulatory [facility] Work Phone: [facility] Comment on above: Congestive heart rosalva lure, unspecified HF chronicity, unspecified heart failure type (HCC) (Primary Dx) Start: 12-26-2023 End: 12-26-2023 Telemedicine consultation with patient Galilea Hardy [facility] Work Phone: [facility] Start: 12-12-2023 Telephone encounter Galilea zhao [facility] Work Phone: [facility] Comment on above: Medication Problem Start: 12-06-2023 Refill Iesha Waddell APRN.LENS GRINDER ROUGH Work Phone: [facility] [place] Comment on above: Refill Request Start: 10-01-2023 Telephone encounter Anju constantino MD Work Phone: [facility] [place] Comment on above: Permission to [employer] information Patient Question Start: 09-20-2023 End: 09-20-2023 Office outpatient visit 25 minutes Ishmael Davis APRN.CNS Work Phone: [facility] [place] Comment on above: Type 2 diabetes britni itus with stage 3b chronic kidney disease, with long-term current use of insulin (HCC) (Primary Dx); Chronic renal disease, stage IV (HCC); Hypertension goal BP (blood pressure) < 150/90; Macroalbuminuric diabetic nephropathy (HCC); Congestive heart failure, unspecified HF chronicity, unspecified heart failure type (HCC) Start: 09-11-2023 Refill Anju rebolledo MD Work Phone: [facility] [place] Comment on above: Med Change Request Start: 09-08-2023 Refill Iesha Waddell APRN.L[employer] GR[employer]ER ROUGH Work Phone: [facility] Comment on above: Med Change Request Start: 09-05-2023 End: 09-05-2023 Patient encounter procedure Iesha Waddell APRN.[employer] GR[employer]ER ROUGH Work Phone: [facility] Comment on above: Hypertension goal BP (blood pressure) < 150/90 (Primary Dx); Type 2 diabetes mellitus with stage 3b chronic kidney disease, with long-term current use of insulin (HCC); Hypertensive kidney disease with stage 3b chronic kidney disease (HCC) Start: 08-31-2023 Telephone encounter Anju constantino MD Work Phone: [facility] [place] Comment on above: Results Start: 08-23-2023 End: 08-23-2023 Office outpatient visit 25 minutes Ishmael Daviskesha SWARTZNUCLEAR MEDICINE TECH Work Phone: [facility] [place] Comment on above: Encounter for immuni zation (Primary Dx) Start: 08-14-2023 End: 08-14-2023 Office outpatient visit 25 minutes Anju Pearce MD Work Phone: [facility] [place] Comment on above: Type 2 diabetes britni [...] Start: 07-21-2023 End: 07-21-2023 Patient encounter procedure Clement Byron ELI.LENS GRINDER ROUGH Work Phone: [facility] Comment on above: URI, acute (Primary Dx) Start: 07-20-2023 Telephone encounter Anju constantino MD Work Phone: [facility] Comment on above: Medication Problem Start: 07-02-2023 Refill Anju rebolledo MD Work Phone: [facility] [place] Comment on above: Refill Request Start: 06-01-2023 Refill Anju rebolledo MD Work Phone: [facility] [place] Comment on above: Refill Request Start: 04-25-2023 Refill Anju rebolledo MD Work Phone: [facility] [place] Comment on above: Refill Request Start: 03-14-2023 Refill Anju rebolledo MD Work Phone: [facility] Comment on above: Refill Request Start: 02-26-2023 Refill Anju rebolledo MD Work Phone: [facility] [place] Comment on above: Refill Request Start: 01-22-[address] [facility] Start: 01-09-2023 End: 01-09-2023 Office [...] Anju constantino MD Work Phone: [facility] [place] Comment on above: Home Health PT Start: 01-01-2023 Telephone encounter Anju constantino MD Work Phone: [facility] [place] Comment on above: Order for Home Healt h Start: 01-01-2023 End: 01-01-2023 Patient encounter procedure Iesha Waddell APRN.CNP Work Phone: [facility] [place] Comment on above: Closed fracture of l eft shoulder with routine healing, subsequent encounter (Primary Dx); Mixed hyperlipidemia; Obesity, Class I, BMI 30-34.9; Type 2 diabetes mellitus with stage 3b chronic kidney disease, with long-term current use of insulin (HCC) Start: 12-25-2022 Refill Anju rebolledo MD Work Phone: [facility] [place] Comment on above: Refill Request Start: 10-04-2022 End: 10-04-[address] Anju Pearce Work Phone: [facility] Start: 10-03-2022 End: 10-03-2022 Emergency department patient visit Dr. Anju Pearce Work Phone: [facility] Start: 08-19-2022 Refill Anju rebolledo MD Work Phone: [facility] [place] Comment on above: Refill Request Start: 07-24-2022 End: 07-24-[address] Anju Pearce Work Phone: [facility] Work Phone: Start: 07-24-2022 End: 07-24-[address] Anju Pearce Work Phone: [facility] Start: 07-13-2022 End: 07-13-[address] Anju Pearce Work Phone: [facility] Work Phone: Start: 07-13-2022 End: 07-13-[address] Anju Pearce Work Phone: [facility]-Laboratory, Specimen Start: 07-13-2022 End: 07-13-[address] Anju Pearce Work Phone: [facility] Start: 07-04-2022 End: 07-04-2022 ambulatory [facility] Work Phone: Start: 07-04-2022 End: 07-04-[address] [facility] Start: 06-28-2022 Telephone encounter Anju constantino MD Work Phone: [facility] [place] Comment on above: Fax urine culture an d last offive visit notes Start: 06-28-2022 End: 06-28-2022 Patient encounter procedure [facility]Laboratory, Specimen Start: 06-26-2022 Telephone encounter Lynn Horner APRN.CNP Work Phone: [facility] Comment on above: Results, Lab Start: 06-25-2022 End: 06-25-2022 Office outpatient visit 25 minutes Patsy Guardado FAMILY INTERVENTION SPECIALIST.LENS GRINDER ROUGH Work Phone: [facility] Comment on above: Urinary frequency (P rimary Dx); Acute lower UTI Start: 02-06-2022 Refill Anju rebolledo MD Work Phone: [facility] [place] Comment on above: Refill Request Procedures Date Procedure Procedure Detail Performing Clinician Start: 06-02-2025 Urnls dip stick/tabl et rgnt auto w/o microscopy Clement Cortes FAMILY INTERVENTION SPECIALIST.LENS GRINDER ROUGH Work Phone: Start: 05-14-2025 Adult depression scr eening assessment Ishmael Duncans FAMILY INTERVENTION SPECIALIST.NUCLEAR MEDICINE TECH Work Phone: Start: 02-19-2025 Radiologic exam ches t 2 views Caridad Anglin FAMILY INTERVENTION SPECIALIST.L[employer] GR[employer]ER ROUGH Work Phone: Start: 01-05-2025 SARS-CoV-2, Influenz a [...] above: Performed By: #### T ROP #### [place] [id number] History of coronary artery bypass grafting History of coronary artery bypass graft Comment on above: GHOSH-LAD, GHOSH- diag onal, SVG-OM, SVG-RCA 01/09/20 History of coronary artery bypass grafting S/P CABG x 4 Anju Pearce MD Work Phone: History of coronary artery bypass grafting S/P CABG x 4 Ishmael Davis FAMILY INTERVENTION SPECIALISTConstanzaNUCLEAR MEDICINE TECH Work Phone: History of coronary artery bypass grafting S/P CABG x 4 Anju Pearce MD Work Phone: Urine culture Dr. Anju lloyd Work Phone: Plan of Treatment Date Care Activity Detail Author Start: 06-16-2032 Urine microalbumin profile [facility] Start: 05-14-2026 Anxiety Screening Anxiety Screening [facility] Start: 05-14-2026 Depression Screening Depression Screening [facility] Start: 05-14-2026 Medicare Annual Wellness Visit Medicare Annual Wellness Visit [facility] Start: 05-13-2026 Hepatitis B surface antibody level LDL Cholesterol [facility] Start: 01-16-2026 Diabetic foot examination Diabetic Foot Exam [facility] Start: 11-13-2025 Hemoglobin A1c measurement HbA1C [facility] Start: 09-12-2025 Covid-19 Vaccine ( season) Covid-19 Vaccine () [facility] Comment on above: Postponed from 07/06/2024 (Declined at t his time) Start: 08-21-2025 End: 08-21-2025 Patient encounter procedure 08/21/2025 3:20 PM EDT Office Visit [facility] [address] [place] [address] Anju Pearce MD [address] [place] [address] 3 month f/u [facility] [place] Comment on above: 3 month f/u Start: 08-14-2025 End: 11-13-2025 Basic metabolic 2000 panel - Serum or Plasma BASIC METABOLIC PANEL Lab Routine Type 2 diabetes mellitus with stage 3b chronic kidney disease, with long-term current use of insulin (HCC) Chronic renal disease, stage IV (HCC) Expected: 08/14/2025 (Approximate), Expires: 11/13/2025 [facility] Work Phone: Comment on above: Expected: 08/14/2025 (Approximate), Expi res: 11/13/2025 Start: 08-14-2025 End: 11-13-2025 CBC W Auto Differential panel - Blood COMPLETE BLOOD COUNT AND DIFFERENTIAL Lab Routine Mild anemia Expected: 08/14/2025 (Approximate), Expires: 11/13/2025 [facility] Comment on above: Expected: 08/14/2025 (Approximate), Expi res: 11/13/2025 Start: 07-06-2025 Influenza vaccination Influenza Vaccine (#1) [facility] Start: 05-14-2025 End: 05-14-2025 Patient encounter procedure [facility] [place] Comment on above: 4 month f/u Start: 05-12-2025 Anxiety Screening Anxiety Screening [facility] Start: 05-12-2025 Depression Screening Depression Screening [facility] Start: 05-05-2025 End: 08-04-2025 25-hydroxyvitamin D3 [Mass/volume] in Serum or Plasma VITAMIN D 25 HYDROXY Lab Routine Vitamin D deficiency Expected: 05/05/2025 (Approximate), Expires: 08/04/2025 [facility] Comment on above: Expected: 05/05/2025 (Approximate), Expi res: 08/04/2025 Start: 05-05-2025 End: 08-04-2025 CBC panel - Blood by Automated count COMPLETE BLOOD COUNT Lab Routine Type 2 diabetes mellitus with stage 3b chronic kidney disease, with long-term current use of insulin (HCC) Hypertension goal BP (blood pressure) < 150/90 Expected: 05/05/2025 (Approximate), Expires: 08/04/2025 [facility] Comment on above: Expected: 05/05/2025 (Approximate), Expi res: 08/04/2025 Start: 05-05-2025 End: 08-04-2025 Comprehensive metabolic 2000 panel - Serum or Plasma COMPREHENSIVE METABOLIC PANEL Lab Routine Type 2 diabetes mellitus with stage 3b chronic kidney disease, with long-term current use of insulin (HCC) Hypertension goal BP (blood pressure) < 150/90 Expected: 05/05/2025 (Approximate), Expires: 08/04/2025 [facility] Comment on above: Expected: 05/05/2025 (Approximate), Expi res: 08/04/2025 Start: 05-05-2025 End: 08-04-2025 Hemoglobin A1c in Blood HEMOGLOBIN A1C Lab Routine Type 2 diabetes mellitus with stage 3b chronic kidney disease, with long-term current use of insulin (HCC) Expected: 05/05/2025 (Approximate), Expires: 08/04/2025 [facility] Work Phone: Comment on above: Expected: 05/05/2025 (Approximate), Expi res: 08/04/2025 Start: 05-05-2025 End: 08-04-2025 Lipid 1996 panel - Serum or Plasma LIPID PANEL BASIC Lab Routine Pure hypercholesterolemia Expected: 05/05/2025 (Approximate), Expires: 08/04/2025 [facility] Comment on above: Expected: 05/05/2025 (Approximate), Expi res: 08/04/2025 Start: 05-05-2025 End: 08-04-2025 Microalbumin/Creatinine [Mass Ratio] in Urine ALBUMIN/CREATININE RATIO, URINE Lab Routine Type 2 diabetes mellitus with stage 3b chronic kidney disease, 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) Expected: 05/05/2025 (Approximate), Expires: 08/04/2025 [facility] Comment on above: Expected: 05/05/2025 (Approximate), Expi res: 08/04/2025 Start: 05-05-2025 End: 08-04-2025 Urate [Mass/volume] in Serum or Plasma URIC ACID Lab Routine Hyperuricemia Expected: 05/05/2025 (Approximate), Expires: 08/04/2025 [facility] Comment on above: Expected: 05/05/2025 (Approximate), Expi res: 08/04/2025 Start: 03-17-2025 Glaucoma screening Dilated Retinal Exam [facility] Start: 03-12-2025 Hemoglobin A1c measurement HbA1C [facility] Start: 02-26-2025 End: 03-21-2026 XR Chest PA and Lateral XR CHEST 2V FRONTAL/LAT Radiology STAT Pleural effusion Expected: 02/26/2025 (Approximate), Expires: 03/21/2026 [facility] Work Phone: Comment on above: Expected: 02/26/2025 (Approximate), Expi res: 03/21/2026 Start: 01-16-2025 End: 01-16-2025 Patient encounter procedure 01/16/2025 1:00 PM EDT Office Visit [facility] [place] [address] [place], [place] [id number] Anju Pearce MD [address] [place], [place] [id number] 1 yr f/u [facility] [place] Comment on above: 1 yr f/u Start: 01-10-2025 Covid-19 Vaccine () Covid-19 Vaccine () [facility] Comment on above: Postponed from 07/06/2023 (Declined at t his time) Start: 01-10-2025 Diabetic foot examination Diabetic Foot Exam [facility] Start: 01-09-2025 Hepatitis B surface antibody level LDL Cholesterol [facility] Start: 01-05-2025 [facility] Start: 11-09-2024 Hemoglobin A1c measurement HbA1C [facility] Start: 11-05-2024 Advance Directive Discussion Advance Directive Discussion [facility] Start: 09-12-2024 End: 12-12-2024 Basic metabolic 2000 panel - Serum or Plasma [facility] Work Phone: Comment on above: Expected: 09/12/2024, Expires: Start: 09-12-2024 End: 12-12-2024 Hemoglobin A1c in Blood [facility] Comment on above: Expected: 09/12/2024, Expires: Start: 09-12-2024 End: 12-12-2024 Natriuretic peptide.B prohormone N-Terminal [Mass/volume] in Serum or Plasma [facility] Comment on above: Expected: 09/12/2024, Expires: Start: 09-12-2024 End: 09-12-2024 Patient encounter procedure 09/12/2024 1:00 PM EST Office Visit [facility] [place] [address] [place] [address] Ishmael Davis APRN.NUCLEAR MEDICINE TECH [address] [facility] [place], [place] [id number] 4 month f/u [facility] [place] Comment on above: 4 month f/u Start: 07-12-2024 Hemoglobin A1c measurement HbA1C [facility] Start: 07-06-2024 Covid-19 Vaccine () Covid-19 Vaccine () [facility] Start: 07-06-2024 Influenza vaccination Influenza Vaccine (#1) [facility] Start: 05-12-2024 End: 08-11-2024 25-hydroxyvitamin D3 [Mass/volume] in Serum or Plasma VITAMIN D 25 HYDROXY Lab Routine Vitamin D deficiency Encounter for long-term current use of medication Expected: 05/12/2024 (Approximate), Expires: 08/11/2024 [facility] Work Phone: Comment on above: Expected: 05/12/2024 (Approximate), Expi res: 08/11/2024 Start: 05-12-2024 End: 08-11-2024 CBC panel - Blood by Automated count CBC Lab Routine Encounter for long-term current use of medication Hypertension goal BP (blood pressure) < 150/90 Expected: 05/12/2024 (Approximate), Expires: 08/11/2024 [facility] Work Phone: Comment on above: Expected: [...] < 150/90 Expected: 05/12/2024 (Approximate), Expires: 08/11/2024 [facility] Work Phone: Comment on above: Expected: 05/12/2024 (Approximate), Expi res: 08/11/2024 Start: 05-12-2024 End: 08-11-2024 Hemoglobin A1c in Blood HGB A1C Lab Routine Type 2 diabetes mellitus with stage 3b chronic kidney disease, with long-term current use of insulin (HCC) Encounter for long-term current use of medication Expected: 05/12/2024 (Approximate), Expires: 08/11/2024 [facility] Work Phone: Comment on above: Expected: 05/12/2024 (Approximate), Expi res: 08/11/2024 Start: 02-23-2024 Hemoglobin A1c measurement HbA1C [facility] Start: 02-23-2024 Hemoglobin A1c/Hemoglobin.total in Blood HbA1C [facility] Start: 02-19-2024 Hepb vaccine adult 3 dose schedule for im use HEP B VACCINE, 3-DOSE, AGE 20+ YR (ENGERIX-B, RECOMBIVAX HB) Immunization/Injection Routine Encounter for immunization Expected: 02/19/2024 [facility] Work Phone: Comment on above: Expected: 02/19/2024 Start: 01-07-2024 Hepatitis B surface antibody level LDL CHOLESTEROL [facility] Start: 01-04-2024 End: 03-05-2024 25-hydroxyvitamin D3 [Mass/volume] in Serum or Plasma VITAMIN D 25 HYDROXY Lab Routine Vitamin D deficiency Expected: 01/04/2024 (Approximate), Expires: 03/05/2024 [facility] Work Phone: Comment on above: Expected: 01/04/2024 (Approximate), Expi res: 03/05/2024 Start: 01-04-2024 End: 03-05-2024 ALBUMIN/CREAT RATIO RND UR ALBUMIN/CREAT RATIO RND UR Lab Routine Macroalbuminuric diabetic nephropathy (HCC) Expected: 01/04/2024 (Approximate), Expires: 03/05/2024 [facility] Work Phone: Comment on above: Expected: 01/04/2024 (Approximate), Expi res: 03/05/2024 Start: 01-04-2024 End: 03-05-2024 CBC panel - Blood by Automated count CBC Lab Routine Hypertension goal BP (blood pressure) < 150/90 Expected: 01/04/2024 (Approximate), Expires: 03/05/2024 [facility] Work Phone: Comment on above: Expected: 01/04/2024 (Approximate), Expi res: 03/05/2024 Start: 01-04-2024 End: 03-05-2024 Comprehensive metabolic 2000 panel - Serum or Plasma COMP METABOLIC PANEL Lab Routine Type 2 diabetes mellitus with stage 3b chronic kidney disease, with long-term current use of insulin (HCC) Hypertension goal BP (blood pressure) < 150/90 Expected: 01/04/2024 (Approximate), Expires: 03/05/2024 [facility] Work Phone: Comment on above: Expected: 01/04/2024 (Approximate), Expi res: 03/05/2024 Start: 01-04-2024 End: 03-05-2024 Hemoglobin A1c in Blood HGB A1C Lab Routine Type 2 diabetes mellitus with stage 3b chronic kidney disease, with long-term current use of insulin (HCC) Expected: 01/04/2024 (Approximate), Expires: 03/05/2024 [facility] Work Phone: Comment on above: Expected: 01/04/2024 (Approximate), Expi res: 03/05/2024 Start: 01-04-2024 End: 04-14-2024 Lipid 1996 panel - Serum or Plasma LIPID PANEL BASIC Lab Routine Type 2 diabetes mellitus with stage 3b chronic kidney disease, with long-term current use of insulin (HCC) Expected: 01/04/2024 (Approximate), Expires: 04/14/2024 [facility] Work Phone: Comment on above: Expected: 01/04/2024 (Approximate), Expi res: 04/14/2024 Start: 01-04-2024 End: 03-05-2024 Urate [Mass/volume] in Serum or Plasma URIC ACID BLOOD Lab Routine Hyperuricemia Expected: 01/04/2024 (Approximate), Expires: 03/05/2024 [facility] Work Phone: Comment on above: Expected: 01/04/2024 (Approximate), Expi res: 03/05/2024 Start: 01-04-2024 End: 03-05-2024 Urinalysis complete panel - Urine URINALYSIS, WITH MICROSCOPIC Lab Routine Macroalbuminuric diabetic nephropathy (HCC) Expected: 01/04/2024 (Approximate), Expires: 03/05/2024 [facility] Work Phone: Comment on above: Expected: 01/04/2024 (Approximate), Expi res: 03/05/2024 Start: 11-05-2023 Advance Directive Discussion Advance Directive Discussion [facility] Start: 11-05-2023 Depression Assessment Depression Assessment [facility] Start: 10-02-2023 Glaucoma screening Dilated Retinal Exam [facility] Start: 10-02-2023 Hepatitis C antibody, confirmatory test DILATED RETINAL EXAM [facility] Start: 09-23-2023 Hepb vaccine adult 3 dose schedule for im use HEP B VACCINE, 3-DOSE, AGE 20+ YR (ENGERIX-B, RECOMBIVAX HB) Immunization/Injection Routine Encounter for immunization Expected: 09/23/2023 [facility] Work Phone: Comment on above: Expected: 09/23/2023 Start: 07-21-2023 End: 08-04-2023 COVID & INFLUENZA A/B & RSV NAAT, ROUTINE COVID & INFLUENZA A/B & RSV NAAT, ROUTINE Microbiology Routine URI, acute Expected: 07/21/2023, Expires: 08/04/2023 [facility] Work Phone: Comment on above: Expected: 07/21/2023, Expires: Start: 07-09-2023 Hemoglobin A1c/Hemoglobin.total in Blood HBA1C [facility] Start: 07-06-2023 Covid-19 Vaccine (5 - 2023-24 season) Covid-19 Vaccine ( season) [facility] Start: 07-06-2023 Influenza vaccination [facility] Start: 05-24-2023 Urine microalbumin profile DTAP,TDAP,TD (1 - Tdap) [facility] Comment on above: Postponed from 05/21/2007 (Declined at t his time) Start: 05-17-2023 Hepatitis B surface antibody level LDL CHOLESTEROL [facility] Start: 05-11-2023 End: 07-11-2023 25-hydroxyvitamin D3 [Mass/volume] in Serum or Plasma VITAMIN D 25 HYDROXY Lab Routine Vitamin D deficiency Expected: 05/11/2023 (Approximate), Expires: 07/11/2023 [facility] Work Phone: Comment on above: Expected: 05/11/2023 (Approximate), Expi res: 07/11/2023 Start: 05-11-2023 End: 07-11-2023 ALBUMIN/CREAT RATIO RND UR ALBUMIN/CREAT RATIO RND UR Lab Routine Type 2 diabetes mellitus with stage 3b chronic kidney disease, with long-term current use of insulin (HCC) Positive for macroalbuminuria Expected: 05/11/2023 (Approximate), Expires: 07/11/2023 [facility] Work Phone: Comment on above: Expected: 05/11/2023 (Approximate), Expi res: 07/11/2023 Start: 05-11-2023 End: 07-11-2023 Basic metabolic 2000 panel - Serum or Plasma BASIC METABOLIC PNL Lab Routine Type 2 diabetes mellitus with stage 3b chronic kidney disease, with long-term current use of insulin (HCC) Stage 3b chronic kidney disease (HCC) Expected: 05/11/2023 (Approximate), Expires: 07/11/2023 [facility] Work Phone: Comment on above: Expected: 05/11/2023 (Approximate), Expi res: 07/11/2023 Start: 01-07-2023 COVID-19 VACCINE (5 - Moderna series) COVID-19 VACCINE (5 - Moderna series) [facility] Start: 11-17-2022 Hemoglobin A1c/Hemoglobin.total in Blood HBA1C [facility] Start: 11-05-2022 ADVANCE DIRECTIVE DISCUSSION ADVANCE DIRECTIVE DISCUSSION [facility] Start: 11-05-2022 DEPRESSION ASSESSMENT DEPRESSION ASSESSMENT [facility] Start: 10-21-2022 3 comp foot exam completed DIABETIC FOOT EXAM [facility] Start: 10-21-2022 Diabetic foot examination Diabetic Foot Exam [facility] Start: 10-05-2022 Patient referral [facility] Work Phone: Start: 09-27-2022 Hepatitis C antibody, confirmatory test DILATED RETINAL EXAM [facility] Start: 09-24-2022 COVID-19 VACCINE (4 - Booster for Moderna series) COVID-19 VACCINE (4 - Booster for Moderna series) [facility] Comment on above: Postponed from 01/20/2022 (Declined at t his time) Postponed from 11/17 (Declined at this time) Start: 07-06-2022 Influenza vaccination INFLUENZA (#1) [facility] Start: 03-15-2022 Hemoglobin A1c/Hemoglobin.total in Blood HBA1C [facility] Start: 01-01-2022 Hepatitis B surface antibody level LDL CHOLESTEROL [facility] Start: 11-17-2021 COVID-19 VACCINE (4 - Booster for Moderna series) COVID-19 VACCINE (4 - Booster for Moderna series) [facility] Start: 11-05-2021 ADVANCE DIRECTIVE DISCUSSION ADVANCE DIRECTIVE DISCUSSION [facility] Start: 11-05-2021 DEPRESSION ASSESSMENT DEPRESSION ASSESSMENT [facility] Start: 05-03-2020 Medicare Annual Wellness Visit Medicare Annual Wellness Visit [facility] Start: 05-21-2007 Urine microalbumin profile DTAP,TDAP,TD (1 - Tdap) [facility] Start: 1997 Hepatitis B Vaccine (1 of 3 - Risk 3-dose series) Hepatitis B Vaccine (1 of 3 - Risk 3-dose series) [facility] Start: 1997 RSV Vaccine (1 - 1-dose 60+ series) RSV Vaccine (1 - 1-dose 60+ series) [facility] Bacteria identified in Urine by Culture URINE CULTURE Microbiology Routine Urinary frequency Ordered: 06/25/2022 [facility] Work Phone: Comment on above: Ordered: 06/25/2022 Bacteria identified in Urine by Culture BACTERIAL CULTURE, URINE Microbiology Routine Pelvic pain 06/02/2025 10:45 AM EDT [facility] Work Phone: COVID & INFLUENZA A/ B & RSV PCR, ROUTINE COVID & INFLUENZA A/B & RSV PCR, ROUTINE Microbiology Routine wheezing Exposure to influenza Viral illness 02/19/2025 9:35 AM EDT [facility] Work Phone: End: 09-18-2025 Echocardiography ECHO Cardiology Routine Heart failure with reduced ejection fraction (HCC) Hypertension goal BP (blood pressure) < 150/90 S/P CABG x 4 Paroxysmal atrial fibrillation with rapid ventricular response (HCC) 1 Occurrences starting 09/18/2024 until 09/18/2025 [facility] Work Phone: Comment on above: 1 Occurrences starting 09/18/2024 until 09/18/2025 Hepb vaccine adult 3 dose schedule for im use HEP B VACCINE, 3-DOSE, AGE 20+ YR (ENGERIX-B, RECOMBIVAX HB) Immunization/Injection Routine Encounter for immunization 1 Occurrences starting 08/23/2023 [facility] Work Phone: Comment on above: 1 Occurrences starting 08/23/2023 Patient Education [facility] Work Phone: Patient referral [facility] Work Phone: PFIZER-BIONTECH COVI D-19 VACCINE (2022- SEASON) AGE 12+ YR PFIZER-BIONTECH COVID-19 VACCINE ( SEASON) AGE 12+ YR Immunization/Injection Routine Encounter for immunization 1 Occurrences starting 08/23/2023 [facility] Work Phone: Comment on above: 1 Occurrences starting 08/23/2023 ROUTINE FLU A/B + RSV ROUTINE FL U A/B + RSV Lab Routine URI, acute Ordered: 07/21/2023 [facility] Work Phone: Comment on above: Ordered: 07/21/2023 SARS-CoV-2 (COVID-19 ) RNA [Presence] in Respiratory specimen by MARIS with probe detection COVID NAAT, UPPER RESPIRATORY, ROUTINE Microbiology Routine URI, acute Ordered: 07/21/2023 [facility] Work Phone: Comment on above: Ordered: 07/21/2023 UA DIP, URINE (POC) UA DIP, URIN E (POC) Lab Routine Urinary frequency Ordered: 06/25/2022 [facility] Work Phone: Comment on above: Ordered: 06/25/2022 [facility] Immunizations Immunization Date Immunization Notes Care Provider Fa cili 08-13-2024 Seasonal trivalent influenza vaccine, adjuvanted, preservative free Ishmael Davis APRN.NUCLEAR MEDICINE TECH Work Phone: [facility] 08-13-2024 influenza virus vacc ine, unspecified formulation Lynn Holliday [facility] 08-31-2023 respiratory syncytia l virus (RSV) vaccine, bivalent (ABRYSVO) Anju Pearce MD Work Phone: [facility] Work Phone: 08-14-2023 influenza (HD-IIV4) vaccine, age 65+ yr, high dose, quadrivalent, PF (FLUZONE HIGH-DOSE) Ishmael Davis APRN.NUCLEAR MEDICINE TECH Work Phone: [facility] 08-14-2023 influenza virus vacc ine, unspecified formulation Ishmael Davis APRN.NUCLEAR MEDICINE TECH Work Phone: [facility] 07-12-2022 influenza (aIIV4) vaccine, age 65+ yr, quadrivalent, PF (FLUAD QUAD) Anju Pearce MD Work Phone: [facility] 07-12-2022 influenza, injectabl e, quadrivalent, contains preservative Anju Pearce MD Work Phone: [facility] Work Phone: 07-12-2022 influenza virus vacc ine, unspecified formulation Clement Cortes APRN.LENS GR[employer]ER ROUGH Work Phone: [facility] 06-16-2022 tetanus toxoid, redu sadiq diphtheria toxoid, and acellular pertussis vaccine, adsorbed Anju Pearce MD Work Phone: [facility] 04-06-2022 pneumococcal polysaccharide vaccine, 23 valent Anju Pearce MD Work Phone: [facility] 08-17-2021 influenza (HD-IIV4) vaccine, age 65+ yr, high dose, quadrivalent, PF (FLUZONE HIGH-DOSE) Anju Pearce MD Work Phone: [facility] 12-24-2020 COVID-19 vaccine, fu ll dose (MODERNA) Anju Pearce MD Work Phone: [facility] 11-26-2020 COVID-19 vaccine, fu ll dose (MODERNA) Anju Pearce MD Work Phone: [facility] 09-04-2020 zoster vaccine recombinant Anju Pearce MD Work Phone: [facility] 07-30-2020 influenza, high dose seasonal, preservative-free Anju Pearce MD Work Phone: [facility] 04-30-2020 zoster vaccine recombinant Anju Pearce MD Work Phone: [facility] 09-02-2019 influenza, high dose seasonal, preservative-free Anju Pearce MD Work Phone: [facility] 08-05-2019 Influenza virus vaccine [facility] 07-19-2018 influenza, high dose seasonal, preservative-free Anju Pearce MD Work Phone: [facility] Work Phone: 08-13-2017 influenza, high dose seasonal, preservative-free Anju Pearce MD Work Phone: [facility] 08-23-2016 influenza, high dose seasonal, preservative-free Anju Pearce MD Work Phone: [facility] Work Phone: 10-23-2015 pneumococcal conjuga te vaccine, 13 valent Anju Pearce MD Work Phone: [facility] 08-21-2013 influenza virus vacc ine, unspecified formulation Anju Pearce MD Work Phone: [facility] 07-25-2012 influenza virus vacc ine, unspecified formulation Anju Pearce MD Work Phone: [facility] Work Phone: 08-07-2011 influenza virus vacc monica, unspecified formulation Anju Pearce MD Work Phone: [facility] 01-06-2011 zoster vaccine, live Anju ervin MD Work Phone: [facility] Work Phone: 08-10-2010 influenza virus vacc ine, unspecified formulation Anju Pearce MD Work Phone: [facility] Work Phone: 10-25-2009 novel influenza-H1N1 -09, all formulations Anju Pearce MD Work Phone: [facility] Work Phone: 08-23-2009 influenza virus vacc ine, unspecified formulation Anju Pearce MD Work Phone: [facility] Work Phone: 09-09-2008 influenza virus vacc ine, unspecified formulation Anju Pearce MD Work Phone: [facility] 09-04-2007 influenza virus vacc monica, unspecified formulation Anju Pearce MD Work Phone: [facility] Work Phone: 05-20-2007 tetanus and diphther ia toxoids, adsorbed, preservative free, for adult use (2 Lf of tetanus toxoid and 2 Lf of diphtheria toxoid) Anju Pearce MD Work Phone: [facility] 09-13-2006 influenza virus vacc ine, unspecified formulation Anju Pearce MD Work Phone: [facility] Work Phone: 08-31-2005 influenza virus vacc ine, unspecified formulation Anju Pearce MD Work Phone: [facility] Work Phone: 08-31-2005 pneumococcal polysaccharide vaccine, 23 valent Anju Pearce MD Work Phone: [facility] Work Phone: 08-31-2005 Pneumococcal Vaccine [facility] Work Phone: 08-31-2005 pneumococcal vaccine , unspecified formulation Dr. Anju Pearce Work Phone: [facility] Payers Date Payer Category Payer Self-pay [id number] 2020 Medicare MEDICARE MEDICAR E A AND B [id number] 2020-Present [phone] [address] [address] [place] [address] Medicare [id number] 2003 Private Health Insurance [place] SUPPLEMENT [id number] 2003-Present [phone] [address] [place] [address] Indemnity [id number] 2003 Private Health Insurance [id number] 2003 Private Health Insurance [id number] 2002 Medicare [id number] 2002 Medicare [id number] Unknown [id number] Unknown [id number] Unknown [id number] Unknown [id number] Unknown [id number] Social History Date Type Detail Facility Start: 08-07-2011 Tobacco smoking status NHIS Never smoked tobacco [facility] Start: 01-05-2022 End: 05-14-2025 Alcohol intake Current non-drinker of alcohol (finding) [facility] Start: 05-02-2020 End: 09-14-2021 History SDOH Alcohol Frequency 1 [facility] Start: 08-30-2020 History SDOH Social Connections Phone 4 [facility] Start: 05-02-2020 End: 08-30-2020 History SDOH Social Connections Get Together 3 [facility] Start: 08-30-2020 End: 09-14-2021 History SDOH Stress 2 [facility] Start: 05-02-2020 History SDOH Financial 5 [facility] Start: 08-29-2020 Education 21 [facility] Start: 1935 Sex Assigned At Not on file [facility] Start: 01-09-2022 End: 06-25-2022 Exposure to SARS-CoV-2 (event) Not sure [facility] Start: 08-07-2011 Tobacco use and exposure Smokeless tobacco non-user [facility] Start: 11-17-2021 End: 10-04-2022 Tobacco smoking status MOIS Unknown if ever smoked [facility] Start: 06-28-2022 None [facility] Start: 01-17-2020 Spouse/ Significant Other [facility] Start: 01-17-2020 Non-smoker [facility] Start: 1935 Sex Assigned At Female [facility] Start: 01-09-2023 End: 09-12-2024 History of Social function [facility] Work Phone: Start: 01-09-2023 End: 09-12-2024 Tobacco use panel [facility] Work Phone: Adult Depression Screening Assessment 3 [facility] Work Phone: How often to you hav e a drink containing alcohol? Never [facility] Do you feel stress - tense, restless, nervous, or anxious, or unable to sleep at night because your mind is troubled all the time - these days [OSQ] Only a little [facility] (I/We) worried jakob er (my/our) food would run out before (I/we) got money to buy more. Never true [facility] In the past 12 month s, was there a time when you were not able to pay the mortgage or rent on time? No [facility] Do you belong to any clubs or organizations such as latter-day groups, unions, fraternal or athletic groups, or school groups? Yes [facility] Are you now , , , , never or living with a partner? [facility] How hard is it for y ou to pay for the very basics like food, housing, medical care, and heating Not very hard [facility] Start: 01-05-2025 Tobacco smoking status MOIS Ex-smoker (finding) [facility] Medical Equipment Procedure Code Equipment Code Equipment Original Text Equipment Identifier Dates [id number], [id number], [id number], [id number] Start: 01-02-2022 End: 03-18-2025 Comment on above: [...] score [AUDIT-C] 0 05/14/20 25 1:38 PM NICKIT Flores Bob MA [facility] 01-17-2020 Are you deaf, or do you have serious difficulty hearing No 01/17/2020 9:17 AM Laurel Rizzo, RN No [facility] 01-17-2020 Are you blind, or do you have serious difficulty seeing, even when wearing glasses No 01/17/2020 9:17 AM Laurel Rizzo, RN No [facility] 01-17-2020 Do you have serious difficulty walking or climbing stairs Yes 01/17/2020 9:17 AM Laurel Rizzo RN Yes [facility] 01-17-2020 Do you have difficul ty dressing or bathing Yes 01/17/2020 9:17 AM EDT Laurel Doyle RN Yes [facility] 01-17-2020 Because of a physica l, mental, or emotional condition, do you have difficulty doing errands alone such as visiting a physician's office or shopping Yes 01/17/2020 9:17 AM EDT Laurel Doyle RN Yes [facility] Mental Status Date Assessment Result Facility 01-05-2025 Cognitive function Level Of Cons ciousness Awake;Alert;Appropriate;Fo llows Commands [facility] Work Phone: 01-17-2020 Because of a physica l, mental, or emotional condition, do you have serious difficulty concentrating, remembering, or making decisions No 01/17/2020 9:17 AM EDLaurel Meyers RN No [facility] Clinical Notes 01-03-2020 to 06-02-2025 Clement Cortes APRN.[facility] - 06/02/2025 10:20 AM Ishmael Edwards APRN.NUCLEAR MEDICINE TECH - 05/14/2025 1:40 PM EDTPatient InstructionsAnju Pearce MD - 05/09/2025 2:39 PM EDTPatient Instructions Note Date & Type Note Facility 06-02-2025 Note HNO ID: [id number] Author: CLEMENT CORTES APRN.[facility] Service: ? Author Type: Nurse Practitioner Type: Progress Notes Filed: 06/02/2025 10:21 Note Text: URGENT CARE BEN Woodward is a 89 year old female. [...] other causes of hematuria. and Recording using [employer] software for draft documentation of the visit was discussed with the patient/authorized corporate sales representative; all questions welcomed and answered. Patient/authorized corporate sales representative agreed to proceed MDM Procedures [facility] 06-02-2025 History of Present illness Narrative URGENT CARE BEN Bolanos Brian Woodward is a 89 year old female. [...] other causes of hematuria. and Recording using [employer] software for draft documentation of the visit was discussed with the patient/authorized corporate sales representative; all questions welcomed and answered. Patient/authorized corporate sales representative agreed to proceed MDM Procedures documented in this encounter [facility] 05-14-2025 History of Present illness Narrative [...] - Chelo Corbin does not see a assessment expert. - Reports minimal thirst and low fluid intake, stating she could go all day without a drink of water. - Drinks one cup of coffee daily; consumes quite a bit of milk. - Nocturia x3-4 times per night; keeps a bottle of water in the bathroom to sip during the night. Anemia: - Recent labs indicate slight anemia. - Chelo Corbin is taking dzmo-omf-zobjpkj iron supplement daily with meals; denies gastrointestinal [...] and labs in 3 months Ishmael Davis APRN.NUCLEAR MEDICINE TECH documented in this encounter [facility] 05-14-2025 Note HNO ID: [id number] Author: ISHMAEL DAVIS APRN.CNS Service: ? Author [...] - Chelo Corbin does not see a assessment expert. - Reports minimal thirst and low fluid intake, stating she could go all day without a drink of water. - Drinks one cup of coffee daily; consumes quite a bit of milk. - Nocturia x3-4 times per night; keeps a bottle of water in the bathroom to sip during the night. Anemia: - Recent labs indicate slight anemia. - Chelo Corbin is taking eibo-mgs-itvwrdn iron supplement daily with meals; denies gastrointestinal [...] and labs in 3 months Ishmael Davis APRN.[facility] 05-14-2025 Instructions Ishmael Davis APRN.CNS - 05/14/2025 1:31 PM EDT Latest Ref [...] review all the medicines you take, even oyvc-ozn-wtqsnex medicines. As you get older, the way [...] certain medical conditions. documented in this encounter [facility] 05-11-2025 Note HNO ID: [id number] Author: LYNN HOLLIDAY MA Service: ? Author Type: Cone Machine Feeder Type: Progress Notes Filed: 05/11/2025 16:03 Note Text: POPULATION HEALTH NAVIGATION OUTREACH Action/FYI Spoke to Chelo Emerald . She will get lab work done Sunday. Reason for Outreach Care Gap/HCC or Scheduling Wellness Visits Care Gaps due: Medicare Annual Wellness Visit Patient Contacted: Spoke to patient/parent/or legal guardian Patient identified by name and : Yes Care Gap/HCC/Scheduling Wellness actions taken: HCC related Navigation Signature: Lynn Holliday MA May 11, 2025 4:01 PM [facility] 05-09-2025 Note HNO ID: [id number] Author: ANJU PEARCE MD Service: ? Author Type: Physician Type: Progress Notes Filed: 05/11/2025 07:44 Note Text: Patient already has orders from 01/16/25 for May labs to be done. Make sure patient aware has labs ordered so may do prior to appointment with Ishmael or day of if too difficult to come to office twice the week of her appointment. [facility] 05-09-2025 History of Present illness Narrative Patient [...] 2025 10:35 AM documented in this encounter [facility] 05-06-2025 Note HNO ID: [id number] Author: LYNN HOLLIDAY MA Service: ? Author Type: Cone Machine Feeder Type: Progress Notes Filed: 05/11/2025 07:44 Note [...] Holliday MA May 06, 2025 10:35 AM [facility] 05-06-2025 Note Patient Outreach (NE TNAV) CONCHA WOODWARD I ([id number]) 1935 F Date Time Provider Department 05/06/25 LYNN HOLLIDAY NETNAV During your visit today, we recorded the following information about you: Lynn Holliday MA 05/11/2025 7:44 AM Signed POPULATION HEALTH NAVIGATION OUTREACH Action/ UPDATED APPOINTMENT NOTE HCC Topic Due (Y [...] do prior to appointment with Ishmael or if too difficult to come to office twice the week of her appointment. Lynn Holliday MA 05/11/2025 4:03 PM Signed POPULATION HEALTH NAVIGATION OUTREACH Action/ Spoke to Chelo Corbin . She will [...] Upset PREDNISONE 09/05/2012 11 - Vomiting STATINS (LILSFNV-EWY-EGB REDUCTAS*05/25/2009 5 - Intolerance ULTRAM (TRAMADOL HCL) 01/17/2013 11 - Vomiting Date Reviewed: 02/19/2025 Reviewed by: Susana Harry LPN - Fully Assessed Reason for Visit: Population Health Navigation Outreach [3910] Cmt: JOSE CONTRERAS PCSA Visit Diagnosis:Type 2 diabetes mellitus with stage 3b chronic kidney disease, with long-term current use of insulin ([facility]) [E11.22, N18.32, Z79.4] Prescriptions as of 05/11/2025 [...] 3 times daily Insulin Yes - Insulin [place], Disposable, (BD ULTRA-FINE JOHN PEN NEEDLE) 32 [...] Osteopenia [M89.9, M94.9] (more content not included)... [facility] 04-21-2025 Telephone encounter Note Patient calls and states that [facility] did not transfer medication to [facility]. [facility] told patient to have PCP resend medication [...] Pepe RN April 21, 2025 10:05 AM [facility] 04-21-2025 Miscellaneous Notes Patient calls and states that [facility] did not transfer medication to [facility]. [facility] told patient to have PCP resend medication [...] 2025 10:05 AM documented in this encounter [facility] 04-21-2025 Telephone encounter Note Pt called [...] she has refills available. Esthela Linder RN [facility] 04-21-2025 Miscellaneous Notes Pt called in [...] Esthela Linder RN documented in this encounter [facility] 04-01-2025 Telephone encounter Note Patient has contacted [facility] to transfer 2 of her [...] by mouth once daily. Kami Mccain RN [facility] 04-01-2025 Miscellaneous Notes Patient has contacted [facility] to transfer 2 of her [...] Kami Mccain RN documented in this encounter [facility] 03-18-2025 Telephone encounter Note Patient has [...] Please advise. Thank you. Charlotte Nava LPN. [facility] 03-18-2025 Miscellaneous Notes Patient has been [...] Melodie Lam March 18, 2025 10:24 AM documented in this encounter [facility] 03-18-2025 Telephone encounter Note Prescription Refill [...] Melodie Lam March 18, 2025 10:24 AM [facility] 03-02-2025 Progress note Formatting of t [...] 2.09 (H) 0.58 - 0.96 mg* Final [facility] 03-02-2025 Miscellaneous Notes BNP is trending upward. BUN is high, has previously declined nephrology OV. Creatinine Date Value Ref Range Status 09/12/2024 2.20 (H) 0.58 - 0.96 mg* Final 05/09/2024 2.13 (H) 0.58 - 0.96 mg* Final 01/10/2024 2.10 (H) 0.58 - 0.96 mg* Final 12/24/2023 2.09 (H) 0.58 - 0.96 mg* Final documented in this encounter [facility] 02-27-2025 Progress note Formatting of t his note might be different from the original. Resolution of interstitial edema and small left pleural effusion [facility] 02-27-2025 Miscellaneous Notes Resolution of interstitial edema and small left pleural effusion documented in this encounter [facility] 02-27-2025 Note HNO ID: [id number] Author: LINDA BOSTON RT(R) Service: ? Author [...] PATIENT PRESENTS WITH AN IMPLANTABLE OR ATTACHED LEARNING DESIGNER: No RADIOLOGY DEPARTMENT: General X-ray: Exam(s) Completed: Chest X-Ray PERIPHERAL IV DATA: Not applicable SIGNED BY: RT Clif(R) February 27, 2025 10:13 AM [facility] 02-20-2025 Telephone encounter Note Patient notified of results, verbalized understanding of instructions given and has f/u XR ordered to complete in a week which she plans to do as well as her blood work. Piedad Henderson MA [facility] 02-20-2025 Miscellaneous Notes Patient notified of [...] if symptoms are not improving. Reese Ga APRN.[facility] documented in this encounter [facility] 02-20-2025 Telephone encounter Note COVID-19, influenza A, and influenza B PCR test are negative. Continue supportive therapies as discussed during visit. Follow-up with PCP if symptoms are not improving. Reese Ga APRN.CNP [facility] Work Phone: 02-19-2025 Instructions Ishmael Davis [...] the lab (for example, the one on [address]) in the morning; you will need to fast (only water, tea, or coffee without sugar/cream is allowed) until your blood is drawn. If your symptoms worsen or persist, or if new concerns arise, please contact our office. documented in this encounter [facility] 02-19-2025 Note HNO ID: [id number] Author: ISHMAEL DAVIS APRN.CNS Service: ? Author [...] (Hcc) Presents today for routine follow-up visit. She presented to urgent care earlier this morning with nausea and vomiting headache body aches and wheezing which started today. Chest x-ray completed and showed mild interstitial edema with trace pleural effusions. COVID and flu testing was completed. Results pending. History of CAD s/p CAB, followed by [facility]. Currently without symptomatic complaints. Recent cardiology visit 01/2025. Stopped Plavix. 6 month follow up. Labs [facility] 01/2025, BUN 42 Cr. 1.95 e GFR [...] 1 tablet by mouth once daily. Insulin [place], Disposable, (BD ULTRA-FINE JOHN PEN NEEDLE) 32 gauge x /32 Use one needle for each dose. 1x/ (more content not included)... [facility] 02-19-2025 History of Present illness Narrative SUBJECTIVE: [...] (Hcc) Presents today for routine follow-up visit. She presented to urgent care earlier this morning with nausea and vomiting headache body aches and wheezing which started today. Chest x-ray completed and showed mild interstitial edema with trace pleural effusions. COVID and flu testing was completed. Results pending. History of CAD s/p CAB, followed by [facility]. Currently without symptomatic complaints. Recent cardiology visit 01/2025. Stopped Plavix. 6 month follow up. Labs [facility] 01/2025, BUN 42 Cr. 1.95 e GFR [...] 1 tablet by mouth once daily. Insulin [place], Disposable, (BD ULTRA-FINE JOHN PEN NEEDLE) 32 gauge x 32 Use one needle for each dose. 1x/day. [...] lower quadrant Benign neoplasm of cerebral meninges ([facility]) 12/26/2008 Neuro Referral: Daija Alfonso, 10/19/08, Dx: [...] hypercholesterolemia S/P CABG x 3 01/09/2020 @ [facility] by Dr. Rivera Stroke (cerebrum) ([facility]) 2013 Type II or unspecified type diabetes [...] Chronic heart failure with preserved ejection fraction ([facility]) (I50.32) - Recent cardiology evaluation with no changes to current management other than Plavix was discontinued. - [facility] Echocardiogram showed near normal systolic function with stage 2 diastolic dysfunction, no significant valvular problems. - No current edema or dyspnea on examination. - Scheduled follow-up labs in May to include BNP levels. - To continue current management and follow-up with cardiology in six months. 3. Type 2 diabetes mellitus with stage 3b chronic kidney disease, with long-term current use of insulin ([facility]) (E11.22) - Recent labs show slight improvement [...] 4 - Moderate documented in this encounter [facility] 02-19-2025 Note SARS-COV-2 (AGENT OF COVID-19) RNA: Not detected INFLUENZA A RNA: Not detected INFLUENZA B RNA: Not detected RESPIRATORY SYNCYTIAL VIRUS (RSV) RNA: Not detected [facility] Comment on above: Performed By: #### 9 [id number] #### [facility] CLIA [id number] [address] [place] [address] [place] 02-19-2025 History of Present illness Narrative Radiology [...] PATIENT PRESENTS WITH AN IMPLANTABLE OR ATTACHED LEARNING DESIGNER: No RADIOLOGY DEPARTMENT: General X-ray: Exam(s) Completed: Chest X-Ray PERIPHERAL IV DATA: Not applicable SIGNED BY: RT Dennis(Ever) February 19, 2025 9:21 AM documented in this encounter [facility] 02-19-2025 Note HNO ID: [id number] Author: GREGORIO CALDWELL RT(Ever) Service: Radiology Author Type: Technologist Type: Progress [...] PATIENT PRESENTS WITH AN IMPLANTABLE OR ATTACHED LEARNING DESIGNER: No RADIOLOGY DEPARTMENT: General X-ray: Exam(s) Completed: Chest X-Ray PERIPHERAL IV DATA: Not applicable SIGNED BY: RT Dennis(R) February 19, 2025 9:21 AM [facility] 02-19-2025 Note HNO ID: [id number] Author: CARIDAD ANGLIN APRN.[facility] Service: ? Author Type: Nurse Practitioner Type: [...] history is provided by the patient. No language tutor was used. Wheezing This is a new [...] hypercholesterolemia S/P CABG x 3 01/09/2020 @ [facility] by Dr. Rivera Stroke (cerebrum) (HCC) 2013 Type II or unspecified type diabetes mellitus without mention of complication, uncontrolled Unspecified cardiovascular disease Unspecified essential hypertension Urgency of urination 2008 PAST SURGICAL HISTORY Procedure Laterality Date ANGIOPLASTY 1988 CABG (3) VEIN GRAFTS AND ARTERIAL GRAFT(S) 01/09/2020 @ [facility] by Dr. Rivera COLONOSCOPY FLX DX W/COLLJ SPEC WHEN PFRMD 08/29/07 LAPAROSCOPY SURG CHOLECYSTECTOMY Cholecystectomy, lap LEFT HEART CATH,CUTDOWN 1991 PAST SURGICAL HISTORY OF Tubal ALLERGIES Bactrim [Sulfamethoxazole-Trimethoprim], Codeine, Farxiga [Dapagliflozin], Prednisone, Statins [Rythoem-Fvm-Hyh Reductase Inhibitors], and Ultram [Tramadol Hcl] MEDICATIONS [...] 1 tablet by mouth once daily. Insulin [place], Disposable, (BD ULTRA-FINE JOHN PEN NEEDLE) 32 [...] Vaping Use V (more content not included)... [facility] 02-19-2025 History of Present illness Narrative BEN [...] history is provided by the patient. No language tutor was used. Wheezing This is a new [...] of cerebral meninges (HCC) 12/26/2008 Neuro Referral: Cheloni Kaden, 10/19/08, Dx: A [...] hypercholesterolemia S/P CABG x 3 01/09/2020 @ [facility] by Dr. Rivera Stroke (cerebrum) ([facility]) 2013 Type II or unspecified type diabetes mellitus without mention of complication, uncontrolled Unspecified cardiovascular disease Unspecified essential hypertension Urgency of urination 2008 PAST SURGICAL HISTORY Procedure Laterality Date ANGIOPLASTY 1988 CABG (3) VEIN GRAFTS & ARTERIAL GRAFT(S) 01/09/2020 @ [facility] by Dr. Rivera COLONOSCOPY FLX DX W/COLLJ SPEC WHEN PFRMD 08/29/07 LAPAROSCOPY SURG CHOLECYSTECTOMY Cholecystectomy, lap LEFT HEART CATH,CUTDOWN 1991 PAST SURGICAL HISTORY OF Tubal ALLERGIES Bactrim [Sulfamethoxazole-Trimethoprim], Codeine, Farxiga [Dapagliflozin], Prednisone, Statins [Doxvauj-Fbe-Yyf Reductase Inhibitors], and Ultram [Tramadol Hcl] MEDICATIONS [...] 1 tablet by mouth once daily. Insulin [place], Disposable, (BD ULTRA-FINE JOHN PEN NEEDLE) 32 [...] scheduling and close follow up Caridad Anglin APRN.[facility] History and Record Review Clinical information obtained [...] was discharged. Procedures documented in this encounter [facility] 01-19-2025 Note HNO ID: [id number] Author: LYNN HOLLIDAY MA Service: ? Author Type: Cone Machine Feeder Type: Progress Notes Filed: 01/19/2025 15:47 Note [...] Holliday MA January 19, 2025 8:10 AM [facility] 01-19-2025 History of Present illness Narrative POPULATION [...] 2025 8:10 AM documented in this encounter [facility] 01-19-2025 Note Patient Outreach (NE TNAV) CONCHA WOODWARD I ([id number]) 1935 F Date Time Provider Department 01/19/25 LYNN HOLLIDAY During your visit today, we [...] Upset PREDNISONE 09/05/2012 11 - Vomiting STATINS (KFTGVNB-ETL-VOG REDUCTAS*05/25/2009 5 - Intolerance ULTRAM (TRAMADOL HCL) [...] tablet by mouth once daily. - Insulin [place], Disposable, (BD ULTRA-FINE JOHN PEN NEEDLE) 32 gauge x 32 Use one needle for each dose. 1x/day. [...] [N18.32] 01/20/2022 Hyperte (more content not included)... [facility] 01-16-2025 Instructions Anju Pearce MD - 01/16/2025 [...] test. - Update your healthcare power of patent prosecution attorney to include your daughter, Aristeo Saunders, [...] on updated guidelines. documented in this encounter [facility] 01-16-2025 Note HNO ID: [id number] Author: ANJU PEARCE MD Service: ? Author Type: Physician Type: Progress Notes Filed: 01/16/2025 14:02 Note Text: This note was created using Verimedriter. Subjective Concha Woodward is a 89 year [...] hypercholesterolemia S/P CABG x 3 01/09/2020 @ [facility] by Dr. Rivera Stroke (cerebrum) ([facility]) 2013 Type II or unspecified type diabetes [...] by mouth once daily as directed Insulin [place], Disposable, (BD ULTRA-FINE JOHN PEN NEEDLE) 32 [...] Vomiting Codeine Vomiti (more content not included)... [facility] 01-16-2025 History of Present illness Narrative This note was created using NurseGridter. Subjective Concha Woodward is a 89 year [...] lower quadrant Benign neoplasm of cerebral meninges ([facility]) 12/26/2008 Neuro Referral: Daija Alfonso, 10/19/08, Dx: [...] hypercholesterolemia S/P CABG x 3 01/09/2020 @ [facility] by Dr. Rivera Stroke (cerebrum) (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 # Mild anemia (D64.9) - Recent hemoglobin 11.6 g/dL and hematocrit 35.8%. - Monitor with upcoming labs in May. Anju Pearce MD documented in this encounter [facility] 01-07-2025 Telephone encounter Note Per pharmacy, Patient is asking for a pen. Charlotte Nava LPN [facility] 01-07-2025 Miscellaneous Notes Per pharmacy, Patient is asking for a pen. Charlotte Nava LPN documented in this encounter [facility] 01-06-2025 Note Addended by: TAYLOR HERNANDEZ on: 01/06/2025 01:51 PM Modules accepted: Orders [facility] 01-06-2025 Telephone encounter Note Please re-send Taylor Bernardo MA [facility] 01-06-2025 Miscellaneous Notes Addended by: TAYLOR [...] See MyChart reply documented in this encounter [facility] 01-05-2025 Telephone encounter Note The following [...] daily at bedtime. [facility] 11-19-2024 Telephone encounter Note Letter mailed Taylor Bernardo MA [facility] 11-19-2024 Miscellaneous Notes Letter mailed Taylor Bernardo MA documented in this encounter [facility] 09-18-2024 Telephone encounter Note Spoke with patient and she stated her daughter scheduled her for [facility] Sunday09/22/24 [facility] 09-18-2024 Miscellaneous Notes Spoke with patient and she stated her daughter scheduled her for [facility] Sunday09/22/24 eGFR Cre: 21 at [...] hydralazine plus nitrate. documented in this encounter [facility] 09-18-2024 Telephone encounter Note eGFR Cre: [...] sacubitril-valsartan 24/26 BID. Consider hydralazine plus nitrate. [facility] 09-12-2024 History of Present illness Narrative [...] CAD s/p CAB years ago, followed by [facility]. Currently without symptomatic complaints.. DIABETES MELLITUS: Without [...] 1 tablet by mouth once daily Insulin [place], Disposable, (BD ULTRA-FINE JOHN PEN NEEDLE) 32 [...] hypercholesterolemia S/P CABG x 3 01/09/2020 @ [facility] by Dr. Rivera Stroke (cerebrum) ([facility]) 2013 Type II or unspecified type diabetes [...] - ICD9: 428.0, ICD10: I50.9 Followed by [facility] - Continue current medications - Encouraged sodium restriction - Recommend regular aerobic exercise/ walking - NT PRO BNP 6. Encounter for immunization - ICD9: V03.89, ICD10: Z23 - [email or web address] COVID-19 VACCINE AGE 12+ YR ([place]) - declined at this time Not needing insulin refill yet, will let us know when needed. Her formulary is changing, covered insulins are listed in [employer] message today from her daughter.GVOKE HYPOPEN, HUMULIN R U-500 KWIKPEN, INSULIN ASP PRT INSULIN PEN, INSULIN ASPART U-100 INSULIN PEN, INSULIN DEGLUDEC INSULIN PEN, INSULIN GLARGINE U-300 INSULIN PEN, INSULIN GLARGINE-YFGN INSULIN PEN. labs today 4 mo follow up Anju Pearce MD- with labs 8 mo follow up Ishmael Davis APRN.NUCLEAR MEDICINE TECH Ishmael Davis APRN.CNS Medical Decision Making: Problems: Moderate: 2+ stable chronic illnesses Data: Unique test result(s) reviewed: 3+ Risk: Moderate: Drug management Medical Decision Making Level: 4 - Moderate documented in this encounter [facility] 09-12-2024 Note HNO ID: [id number] Author: ISHMAEL DAVIS APRN.NUCLEAR MEDICINE TECH Service: ? Author Type: Nurse Specialist Type: [...] History of CAD s/p CAB, followed by [facility]. Currently without symptomatic complaints. Reports [...] otic solution U (more content not included)... [facility] 08-07-2024 Telephone encounter Note The patient has [...] Simms RN August 07, 2024 8:37 AM [facility] 08-07-2024 Miscellaneous Notes The patient has [...] 2024 8:37 AM documented in this encounter [facility] 06-21-2024 Telephone encounter Note Noted back on FIASP. Okay to continue lunch time insulin. Adjust dose of insulin with meals as needed Updated med list [facility] 06-21-2024 Miscellaneous Notes Noted back on FIASP. Okay to continue lunch time insulin. Adjust dose of insulin with meals as needed Updated med list Phoned patient and given provider's message below with verbalized understanding. Patient reports she picked Fiasp at [facility] pharmacy yesterday. Reports her insurance would not [...] clear. Please advise. documented in this encounter [facility] 06-21-2024 Telephone encounter Note Phoned patient and given provider's message below with verbalized understanding. Patient reports she picked Fiasp at [facility] pharmacy yesterday. Reports her insurance would not cover novolog. Reports she has been taking 3 units at lunch and will continue to do so. [facility] 06-20-2024 Telephone encounter Note If she [...] and sugars fine, may keep taking it. [facility] 06-20-2024 Telephone encounter Note Please clarify directions on patients Insulin. States that she is confused if she should take lunch time insulin or hold lunchtime insulin. Directions on prescriptions are not clear. Please advise. [facility] 06-19-2024 Telephone encounter Note Patient notified of providers message and verbalized understanding. [facility] 06-19-2024 Miscellaneous Notes Patient notified of providers message and verbalized understanding. Addended by: ISHMAEL DAVIS on: 06/19/2024 04:47 PM Modules accepted: Orders I sent in both prescriptions. She can pick whichever one she can get. If the [facility] pharmacy is closed and she prefers the Fiasp insulin and wants to wait until tomorrow I think that is okay Patient calling back [facility] pharmacy only one that has Fiasp insulin in stock. Not sure which to pend. Patient was wanting to get picked up today, told her pharmacy closes early. Please advise Pt called and is notified of providers message and instructions. Pt voices understanding. She is going to call [facility] pharmacy and if they have the fiasp in stock she will call us back to send it over there. She said her insurance doesn't cover the Novolog anymore that's why she went to the [facility]. I also told her she could call her insurance and see if there is anything else they cover aside from the fiasp as it is out of stick. Eshtela Linder, RN Rx sent for Novolog which she was taking before. Can check to see if fiasp available at [facility] pharmacy. Pt calls states will be out of insulin tomorrow. Just got off phone with [facility] they will not get her fiasp- flex touch insulin in until end of month or later called a few other stores in town same thing. Asking if something else could be called in in its place for her? documented in this encounter [facility] 06-19-2024 Note Addended by: ISHMAEL DAVIS on: 06/19/2024 04:47 PM Modules accepted: Orders [facility] 06-19-2024 Telephone encounter Note I sent in both prescriptions. She can pick whichever one she can get. If the [facility] pharmacy is closed and she prefers the Fiasp insulin and wants to wait until tomorrow I think that is okay [facility] 06-19-2024 Telephone encounter Note Patient calling back [facility] pharmacy only one that has Fiasp insulin in stock. Not sure which to pend. Patient was wanting to get picked up today, told her pharmacy closes early. Please advise [facility] 06-19-2024 Telephone encounter Note Pt called and is notified of providers message and instructions. Pt voices understanding. She is going to call [facility] pharmacy and if they have the fiasp in stock she will call us back to send it over there. She said her insurance doesn't cover the Novolog anymore that's why she went to the [facility]. I also told her she could call her insurance and see if there is anything else they cover aside from the fiasp as it is out of stick. Esthela Linder, RN [facility] 06-19-2024 Telephone encounter Note Rx sent for Novolog which she was taking before. Can check to see if fiasp available at [facility] pharmacy. [facility] 06-19-2024 Telephone encounter Note Pt calls states will be out of insulin tomorrow. Just got off phone with [facility] they will not get her fiasp- flex touch insulin in until end of month or later called a few other stores in town same thing. Asking if something else could be called in in its place for her? [facility] 05-12-2024 Instructions Ishmael Davis APRN.CNS - 05/12/2024 1:49 PM EDT Increase your [...] ear wax. Please schedule an appointment with [facility] for follow-up documented in this encounter [facility] 05-12-2024 History of Present illness Narrative [...] (Hcc) Presents today for routine follow-up visit. At her last visit she reported postmenopausal bleeding x 3 days and attributed it to Jardiance so stopped taking it. Today reports no further recurrence, stopped when she stopped taking medication. Recurrence: none Not interested in pursuing further workup at this time. Aspirin and Plavix are taken daily. History of CAD s/p CAB years ago, [facility] visits, overdue for follow-up. Currently [...] 14 Units subcutaneously daily at bedtime. Insulin [place], Disposable, (BD ULTRA-FINE JOHN PEN NEEDLE) 32 [...] lower quadrant Benign neoplasm of cerebral meninges ([facility]) 12/26/2008 Neuro Referral: Daija Alfonso, 10/19/08, Dx: [...] hypercholesterolemia S/P CABG x 3 01/09/2020 @ [facility] by Dr. Rivera Stroke (cerebrum) ([facility]) 2013 Type II or unspecified type diabetes [...] Negative Negative Ketones, Urine Negative Negative Specific [place], Ur 1.005 - 1.030 1.020 Hemoglobin/Blood,Ur Negative [...] V45.81, ICD10: Z95.1 Has been followed by [facility], overdue for follow-up visit. Endorse [...] ears. - CONSULT TO ENT Ishmael Davis APRN.NUCLEAR MEDICINE TECH ASSESSMENT/PLAN: 1. . Hypertension goal BP (blood pressure) < 150/90 - ICD9: 401.9, ICD10: I10 Blood pressure is controlled. Endorse continue on with current medications unchanged. Has not recently seen [facility] cardiology. Endorse scheduling an appointment to reestablish care. Echocardiogram completed 2019 at [facility] showed LVEF 30%. [facility] 2019. S/P CABG GHOSH-Dx, LAD; SVG-OM Cx, SVG-RCA Return to clinic [...] unchanged for now. Schedule follow-up with cardiology, [facility]. Advised: Increase your fluid intake, aim for [...] ear wax. Please schedule an appointment with [facility] for follow-up 4 mo follow up MD Ishmael Zafar APRN.NUCLEAR MEDICINE TECH Medical Decision Making: Problems: Moderate: 1+ chronic illnesses with change Risk: Moderate: Drug management Medical Decision Making Level: 4 - Moderate documented in this encounter [facility] 01-17-2024 Miscellaneous Notes Thought needed glucometer [...] Angelica Rogel LPN documented in this encounter [facility] 01-14-2024 Miscellaneous Notes Rx sent [facility] [place] pharmacy calling patient Medicare B insurance only covers [employer] so needing new rx for [employer] meter and strips and [employer]ile[employer] Lancets please. With all diagnosis codes please, times a day testing, insulin, etc. Asking for copy of last office visit face to face notes faxed to [phone]. Pending rx for items requested. Printed office notes and faxed to [phone] as requested. Please advise Patient has been [...] Tram Jimenez LPN. documented in this encounter [facility] 01-14-2024 Miscellaneous Notes Patient has been [...] care: 05/12/2024 Please Note: Per Pharmacist at [facility], they can no longer process Medicare prescriptions under Part B. Which the test strips fall under. Please send to [facility] for the patient. Patient is aware of this already. Please advise. Thank you. Charleen Diaz. documented in this encounter [facility] 01-11-2024 Anju Valdez MD - 01/11/2024 1:24 PM EST Get water in through tea and soup to get up to 8 cups of water daily. documented in this encounter [facility] 01-11-2024 History of Present illness Narrative This note was created using [employer]. Subjective Concha Woodward is a 88 year [...] lower quadrant Benign neoplasm of cerebral meninges ([facility]) 12/26/2008 Neuro Referral: Daija Alfonso, 10/19/08, Dx: [...] hypercholesterolemia S/P CABG x 3 01/09/2020 @ [facility] by Dr. Rivera Stroke (cerebrum) ([facility]) 2013 Type II or unspecified type diabetes [...] 1 tablet by mouth once daily. Insulin [place], Disposable, (BD ULTRA-FINE JOHN PEN NEEDLE) 32 [...] Abs Lymph 1.00 - 4.00 k/uL 2.97 [place]% % 6.8 Abs [place] <0.87 k/uL 0.58 Eosin% % 0.8 Abs Eosin <0.46 k/uL 0.07 Baso% % 0.8 Abs Baso <0.11 k/uL 0.07 Immature Gran % % 0.4 IMMATURE GRANS (ABS) <0.10 k/uL 0.03 NRBC /100 WBC 0.0 Absolute nRBC <0.01 k/uL <0.01 <0.01 <0.01 DTYPE Auto Color Yellow Yellow Clarity Clear Clear Glucose, Urine Negative Negative Bilirubin, Urine Negative Negative Ketones, Urine Negative Negative Specific [place], Ur 1.005 - 1.030 1.020 Hemoglobin/Blood,Ur Negative [...] disease, with long-term current use of insulin ([facility]) E11.22 HGB A1C N18.32 COMP METABOLIC PANEL Z79.4 Fair control. Continue present management 2. 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 Stay hydrated 3. Vitamin D deficiency E55.9 VITAMIN D 25 HYDROXY Continue to adjust vitamin D intake as needed 4. Congestive heart failure, unspecified HF chronicity, unspecified heart failure type ([facility]) I50.9 Stable; able to do normal daily [...] Anju Pearce MD documented in this encounter [facility] 12-26-2023 History of Present illness Narrative [...] going OK with HF. Started going to [employer] and exercising more. Pot Pusher is through the [facility]. Past medical history reviewed. ROS: [...] 1 tablet by mouth once daily. Insulin [place], Disposable, (BD ULTRA-FINE JOHN PEN NEEDLE) 32 [...] score: 5 NYHA class - not classified PAWEL/ARB/ARNI YES - losartan Dose titration in progress [...] continue HF management with PCP team and mail room clerk - Continue current medications - Encouraged drinking sufficient water - Advised to call office if cost issues with Jardiance or ADEs - Hasn't had mail room clerk visit in very long time --> advised to make a priority and get appt scheduled The patient verbalized understanding of the instructions. Patient taking SGLT2-I at conclusion of visit: Yes Follow up: See patient instructions The majority of the pharmacy visit (> 50%) was spent counseling and/or coordinating care for the patient. Time was 16 minutes. documented in this encounter [facility] 12-12-2023 Miscellaneous Notes Returned call to patient. States she has not met her deductible for 2023. Cost of Jardiance is >$400. Says her deductible is ~$500. Said her first script was $155. Did start Jardiance about 1 week ago. No side effects. Trying to drink more water. F/up with [facility] currently scheduled for 12/19, is planning to [...] 12/24 or 12/25). Advised pt to contact [facility] with other issues or if needs to switch to Farxiga. Galilea Hardy PharmD, [facility] Primary Care Clinical Pharmacist Pt is calling regarding the cost of Jardiance going up. Pt asking about a different tier of medication. Pt asking if she can speak directly to emy Ricci. Radha Sharma LPN documented in this encounter [facility] 12-06-2023 Miscellaneous Notes Okayed Patient has [...] Charlotte Nava LPN. documented in this encounter [facility] 10-04-2023 Miscellaneous Notes Spoke with patient. [...] is any problem with this? Julieta Guerrero, RN documented in this encounter [facility] 10-01-2023 Miscellaneous Notes Patient calling stating she wants to add her daughter Aristeo Saunders and son-in-law Homero Saunders to her chart to be able to discuss her medical information with them. She gives permission to talk to them regarding any of her medical information. Chart has been updated per pt's request. Eduin Alva LPN documented in this encounter [facility] 09-20-2023 Ishmael Vasquez APRN.ELIZA - 09/20/2023 1:39 PM EST Increase fluid intake, aim for 64 ounces of fluid daily. Make an appointment with [facility] documented in this encounter [facility] 09-20-2023 History of Present illness Narrative [...] She has CAD s/p CAB years ago, [facility] following. No recent visit. CP/SOB: [...] by mouth once daily. As directed Insulin [place], Disposable, (BD ULTRA-FINE JOHN PEN NEEDLE) 32 [...] hypercholesterolemia S/P CABG x 3 01/09/2020 @ [facility] by Dr. Rivera Stroke (cerebrum) ([facility]) 2014 Type II or unspecified type diabetes [...] Abs Lymph 1.00 - 4.00 k/uL 2.97 [place]% % 6.8 Abs [place] <0.87 k/uL 0.58 Eosin% % 0.8 Abs [...] current medications unchanged. Has not recently seen [facility] cardiology. Endorse scheduling an appointment to reestablish care. Echocardiogram completed 2019 at [facility] showed LVEF 30%. [facility] 2019. S/P CABG GHOSH-Dx, LAD; SVG-OM Cx, SVG-RCA Return to clinic [...] unchanged for now. Schedule follow-up with cardiology, [facility]. Ishmael Davis APRN.NUCLEAR MEDICINE TECH Medical Decision Making: Problems: Moderate: 2+ stable chronic illnesses Risk: Moderate: Drug management Medical Decision Making Level: 4 - Moderate documented in this encounter [facility] 09-13-2023 Miscellaneous Notes Spoke with pt [...] Anju Pearce MD Per [facility], Pharmacy checked public health specialist website, Novolog is on backorder. Requesting an alternative be sent. Charlotte Nava LPN documented in this encounter [facility] 09-10-2023 Miscellaneous Notes Pharmacy is requesting 90 day supply. Charlotte Nava LPN documented in this encounter [facility] 09-05-2023 History of Present illness Narrative [...] Saw Dr. Pearce and then Ishmael. On norvasc, blood pressure still running around 170's/80's. Her [...] DM - Uncontrolled E11.65 Insulin: Yes Insulin [place], Disposable, (BD ULTRA-FINE JOHN PEN NEEDLE) 32 [...] Disease, With Long-Term Current Use of Insulin ([facility]) - 08/25/2014 History of Cva (Cerebrovascular Accident) [...] to improve, for Keep next scheduled appointment.. JEANMARIE Li documented in this encounter [facility] 09-03-2023 Miscellaneous Notes Pt taking 10 mg daily. Scheduled appt for Sun. Daksha Rviera Ma Check to see if taking amlodipine [...] feels like patient would benefit from an PAWEL or ARB patient is willing to try [...] from previous. May want to add an PAWEL or an ARB to her medications to [...] Abs Lymph 1.00 - 4.00 k/uL 2.97 [place]% % 6.8 Abs [place] <0.87 k/uL 0.58 Eosin% % 0.8 Abs [...] Miriam Pepe RN documented in this encounter [facility] 08-23-2023 Instructions Ishmael Davis APRN.CNS - [...] appointment with cardiology documented in this encounter [facility] 08-23-2023 History of Present illness Narrative SUBJECTIVE: Hepatitis B Vaccine(1 of 3 - Risk 3-dose series) Never done RSV Vaccine(1 - 1-dose 60+ series) Never done Diabetic Foot Exam due on 10/21/2022 Covid-19 Vaccine(2022- season) due on 07/06/2023 HbA1C due on 07/09/2023 HPI Concha Woodward is a 88 year [...] She has CAD s/p CAB years ago, [facility] following. No recent visit. CP/SOB: [...] 1 tablet by mouth once daily. Insulin [place], Disposable, (BD ULTRA-FINE JOHN PEN NEEDLE) 32 [...] lower quadrant Benign neoplasm of cerebral meninges ([facility]) 12/26/2008 Neuro Referral: Daija Alfonso, 10/19/08, Dx: [...] hypercholesterolemia S/P CABG x 3 01/09/2020 @ [facility] by Dr. Rivera Stroke (cerebrum) ([facility]) 2013 Type II or unspecified type diabetes [...] Abs Lymph 1.00 - 4.00 k/uL 2.97 [place]% % 6.8 Abs [place] <0.87 k/uL 0.58 Eosin% % 0.8 Abs [...] check this week Has not recently seen [facility] cardiology. Endorse scheduling an appointment to reestablish care. Echocardiogram completed 2019 at [facility] showed LVEF 30%. [facility] 2019. S/P CABG GHOSH-Dx, LAD; SVG-OM Cx, SVG-RCA Return to clinic 1 month for recheck of blood pressure. Ishmael Davis APRN.NUCLEAR MEDICINE TECH Medical Decision Making: Problems: Moderate: 2+ stable chronic illnesses Risk: Moderate: Drug management Medical Decision Making Level: 4 - Moderate documented in this encounter [facility] 08-14-2023 Instructions Anju Pearce MD - [...] least under 140/90. documented in this encounter [facility] 08-14-2023 History of Present illness Narrative This note was created using [employer]. Subjective Concha Woodward is a 88 year [...] sinus symptoms for which was [facility]. Was seeing [facility]. Noted kidney issues--have not tried jardiance or farxiga. PAST MEDICAL HISTORY Diagnosis Date Abdominal pain, left lower quadrant Abdominal pain, right lower quadrant Benign neoplasm of cerebral meninges (HCC) 12/26/2008 Neuro Referral: Cheloni Kaden, 10/19/08, Dx: A [...] hypercholesterolemia S/P CABG x 3 01/09/2020 @ [facility] by Dr. Rivera Stroke (cerebrum) ([facility]) 2014 Type II or unspecified type diabetes mellitus without mention of complication, uncontrolled Unspecified cardiovascular disease Unspecified essential hypertension Urgency of urination 2008 Current Outpatient Medications Medication Sig allopurinol (ZYLOPRIM) [...] 14 Units subcutaneously daily at bedtime. Insulin [place], Disposable, (BD ULTRA-FINE JOHN PEN NEEDLE) 32 [...] Anju Pearce MD documented in this encounter [facility] 07-24-2023 Miscellaneous Notes Patient notified and [...] know either way. documented in this encounter [facility] 07-21-2023 History of Present illness Narrative [...] (without mention of hemorrhage) Female stress incontinence 2009 Stress incontinence Very mild Gout Internal hemorrhoids without mention of complication Labyrinthine dysfunction, unspecified 12/26/200810/13 -Seeing ENT, Vestibular Retraining via PT Other and unspecified hyperlipidemia Other specified cardiac dysrhythmias(427.89) TACHYCARDIA (SEE ALSO ARRHYTHMIA) SINUS Pure hypercholesterolemia S/P CABG x 3 01/09/2020 @ [facility] by Dr. Rivera Stroke (cerebrum) ([facility]) 2013 Type II or unspecified type diabetes mellitus without mention of complication, uncontrolled Unspecified cardiovascular disease Unspecified essential hypertension Urgency of urination 2008 PAST SURGICAL HISTORY Procedure Laterality Date ANGIOPLASTY 1988 CABG (3) VEIN GRAFTS & ARTERIAL GRAFT(S) 01/09/2020 @ [facility] by Dr. Rivera COLONOSCOPY FLX DX W/COLLJ SPEC WHEN PFRMD 08/29/07 LAPAROSCOPY SURG CHOLECYSTECTOMY Cholecystectomy, lap LEFT HEART CATH,CUTDOWN 1991 PAST SURGICAL HISTORY OF Tubal ALLERGIES Bactrim [Sulfamethoxazole-Trimethoprim], Codeine, Prednisone, Statins [Mosqfrv-Hxx-Tnu Reductase Inhibitors], and Ultram [Tramadol Hcl] MEDICATIONS [...] 1 tablet by mouth once daily. Insulin [place], Disposable, (BD ULTRA-FINE JOHN PEN NEEDLE) 32 [...] NAAT, ROUTINE Patient was instructed to take noml-peu-ysldoox medication at this time for supportive therapy for symptom management. Patient was educated about red flag symptoms to watch for. Patient will follow-up as needed. Clement Cortes APRN.THIAGO Prescription instructions reviewed with patient as applicable. Potential red flag symptoms discussed with the patient. Reviewed appropriate action plan to take if red flag symptoms occur. Patient agreeable to treatment plan. Clement Cortes APRN.THIAGO documented in this encounter [facility] 07-02-2023 Miscellaneous Notes Last seen pcp [...] advise. Ofelia Carroll documented in this encounter [facility] 06-01-2023 Miscellaneous Notes Last Office Visit: 01/09/2023 Future Office Visit: 08/14/2023 Requested Prescriptions Pending Prescriptions Disp Refills allopurinol (ZYLOPRIM) 100 mg tablet 90 tablet 3 Sig: Take 1 tablet by mouth once daily. Date of Last Labs: 01/06/2023 documented in this encounter [facility] 04-25-2023 Miscellaneous Notes Patient has been [...] advise. Gregorio Garcia documented in this encounter [facility] 03-14-2023 Miscellaneous Notes EVANGELINA Corbin, advised [...] you. Charlotte Nava LPN Pharmacy verified in [facility] Patient has been identified by name and [...] Leona Vázquez Pss documented in this encounter [facility] 02-26-2023 Miscellaneous Notes PDMP website checked and validated. All prescriptions have been APPROPRIATELY filled. No suspicious activity was identified. 02/26/2023 by Iesha Waddell APRN.THIAGO Last office visit: 01/09/23 Next appointment scheduled: [...] patient. Melva Noble documented in this encounter [facility] 01-10-2023 Miscellaneous Notes The following approved medication requests have been transmitted electronically. Requested Prescriptions Signed Prescriptions Disp Refills insulin glargine (BASAGLAR KWIKPEN U-100 INSULIN) 100 unit/mL (3 mL) 15 mL 11 Sig: Inject 11 Units subcutaneously daily at bedtime. Authorizing Provider: ANJU PEARCE MD 11 not 1 units Please review units per day. documented in this encounter [facility] 01-09-2023 History of Present illness Narrative This note was created using [employer]. Subjective Concha Woodward is a 87 year [...] 70 or over 300. Added daughter to [facility] Saunders Depression Screening 08/21/2018 09/02/2019 01/01/2021 01/09/2023 PHQ-2 [...] hypercholesterolemia S/P CABG x 3 01/09/2020 @ [facility] by Dr. Rivera Stroke (cerebrum) ([facility]) 2014 Type II or unspecified type diabetes mellitus without mention of complication, uncontrolled Unspecified cardiovascular disease Unspecified essential hypertension Urgency of urination 2008 Current Outpatient Medications Medication Sig rosuvastatin (CRESTOR) 5 mg tablet Take 1 tablet by mouth once daily. As directed amLODIPine (NORVASC) 5 mg tablet Take 1 tablet by mouth once daily. Insulin [place], Disposable, (BD ULTRA-FINE JOHN PEN NEEDLE) 32 [...] Lymph 1.00 - 4.00 k/uL 3.45 2.97 [place]% % 7.2 6.8 Abs [place] <0.87 k/uL 0.60 0.58 E[place]% % 1.0 [...] Anju Pearce MD documented in this encounter [facility] 01-02-2023 Miscellaneous Notes PATIENT NOTIFIED OF SAME. Order faxed to [facility] as requested. Please let patient know that [facility] is not willing to follow since she is doing PT at [facility], we can do a referral to the [facility] agency on Aging to see if we can get some assistance resources for her that way. Please send referral, thanks! Delores from [facility] calls and state that patient was not discharged from [facility]. [facility] is planning on seeing patient for the next 2 months. Patient had just finished phase one of PT therapy. Patient was seen yesterday at [facility]. In those notes, it was noted that patient has been living at home by self. Delores states that transportation issues is not a reason for homebound therapy. Insurance will not cover homebound therapy especially since patient has not been discharged from [facility]. Delores states that she would like to help patient but unable to help due to insurance not covering home health therapy. Please review and advise, Miriam Pepe RN documented in this encounter [facility] 01-01-2023 Miscellaneous Notes Detailed message left for Delores as to below information. She was going to [facility] while living with family because she had access to them for transportation. She is now going back to her own home to try and regain independence and that is why she is interested in [facility] services. Please let [facility] know that. Delores with [facility] called in and reports she was going over last OV notes and it said that Pt was going to [facility] for PT. She was asking if the Pt is currently going there. She states if the Pt is going to out patient therapy her insurance wouldn't cover home health. Please call and advise. documented in this encounter [facility] 01-01-2023 History of Present illness Narrative [...] at this point. In PT. Going to [facility]. . Pain has been controlled. Following with [facility] for ortho. Her medications were reviewed today [...] by mouth once daily. As directed Insulin [place], Disposable, (BD ULTRA-FINE JOHN PEN NEEDLE) 32 gauge x /32 Use one needle for each dose. 1x/day. [...] - 01/01/2023 Stage 3b Chronic Kidney Disease ([facility]) - 01/20/2022 Hypertensive Kidney Disease With Stage 3b Chronic Kidney Disease ([facility]) - 01/20/2022 S/P Cabg X 4 - 01/09/2020 Diarrhea, Unspecified - 04/28/2019 Hyperuricemia - 01/05/2018 Type 2 Diabetes Mellitus With Stage 3b Chronic Kidney Disease, With Long-Term Current Use of Insulin ([facility]) - 08/25/2014 History of Cva (Cerebrovascular Accident) [...] V54.11, ICD10: S42.92XD (primary diagnosis) Referral for [facility] with [facility]. - NON-[facility] 2. Mixed hyperlipidemia - ICD9: 272.2, ICD10: E78.2 - ROSUVASTATIN 5 MG TABLET 3. Obesity, Class I, BMI 30-34.9 - ICD9: 278.00, ICD10: E66.9 4. Type 2 diabetes mellitus with stage 3b chronic kidney disease, with long-term current use of insulin (HCC) - ICD9: 250.40, 585.3, V58.67, ICD10: E11.22, N18.32, Z79.4 - NON-[facility] Portions of this note have [...] for Keep next scheduled appointment.. Iesha Waddell APRN-THIAGO documented in this encounter [facility] 12-25-2022 Miscellaneous Notes JESSA 05/24/22 Next [...] Charleen Anderson Pss documented in this encounter [facility] 08-22-2022 Miscellaneous Notes Okayed Patient has [...] Not applicable Please advise. Thank you. Radha Greenfield Pss documented in this encounter [facility] 06-28-2022 Miscellaneous Notes Aristeo with Dr [facility] called over to have urine culture and Pts last OV notes send over. Faxed to # [phone]. documented in this encounter [facility] 06-26-2022 Miscellaneous Notes Left message for patient to return call. Linda Devine ----- Message from Lynn David APRN.[employer] sent at 06/26/2022 5:19 PM EDT ----- Urine culture did not show clear evidence of infection. She may continue to take antibiotic if it has been helpful. Recommend follow up with PCP to ensure hematuria has resolved. Lynn David CNP documented in this encounter [facility] 06-25-2022 History of Present illness Narrative Subjective The history is provided by the patient. No language tutor was used. HPI Concha Woodward is a [...] hypercholesterolemia S/P CABG x 3 01/09/2020 @ [facility] by Dr. Rivera Stroke (cerebrum) (HCC) 2013 Type II or unspecified type diabetes mellitus without mention of complication, uncontrolled Unspecified cardiovascular disease Unspecified essential hypertension Urgency of urination 2008 I have confirmed and edited as necessary, the [facility] Review of Systems Constitutional: Negative for [...] detail warranting prompt ER evaluation. Patsy Guardado APRN.CNP documented in this encounter [facility] 06-25-2022 Instructions Patsy Guardado APRN.CNP - 06/25/2022 9:27 AM EDT keflx for 7 days Tylenol as needed for discomfort AZO otc Increase hydration -Follow up with PCP or return to clinic if symptoms not improving in 3 days or if you develop any new (or worsening) symptoms such as fever, chills or back pain go to ER. documented in this encounter [facility] 02-06-2022 Miscellaneous Notes Patient has been identified by name and date of : Yes Patient phones for refill(s): Pending Prescriptions Disp Refills BASAGLAR KWIKPEN U-100 INSULIN 100 UNIT/ML (3 ML) [...] Miriam Pepe RN documented in this encounter [facility] 01-03-2020 History of Past i llness [...] of this encounter (statuses as of 02/06/2022) [facility] History of Past illness Narrative* Problem [...] of this encounter (statuses as of 06/25/2022) [facility] Narrative* Problem [...] of this encounter (statuses as of 06/26/2022) [facility] Narrative* Problem [...] of this encounter (statuses as of 06/28/2022) [facility] Narrative* Problem [...] of this encounter (statuses as of 08/22/2022) [facility] N[facility]ative* Problem [...] of this encounter (statuses as of 12/25/2022) [facility] N[facility]ative* Problem [...] of this encounter (statuses as of 01/01/2023) [facility] N[facility]* Problem [...] of this encounter (statuses as of 01/02/2023) [facility] N[facility]ative* Problem [...] of this encounter (statuses as of 01/02/2023) [facility] Narrative* Problem [...] of this encounter (statuses as of 01/11/2023) [facility] N[facility]ative* Problem [...] of this encounter (statuses as of 01/12/2023) [facility] N[facility]* Problem [...] of this encounter (statuses as of 02/27/2023) [facility]* Problem [...] of this encounter (statuses as of 03/14/2023) [facility] N[facility]* Problem [...] of this encounter (statuses as of 04/25/2023) [facility]* Problem [...] of this encounter (statuses as of 06/01/2023) [facility]* Problem [...] of this encounter (statuses as of 07/02/2023) [facility] N[facility]* Problem [...] of this encounter (statuses as of 07/21/2023) [facility] N[facility]* Problem [...] of this encounter (statuses as of 07/24/2023) [facility] N[facility]ative* Problem [...] cerebral meninges 12/26/2008 02/11/2020 Overview: Neuro Referral: Dajia Alfonso, 10/19/08, Dx: A incidental ventromedial foramen [...] of this encounter (statuses as of 08/23/2023) [facility] N[facility]ative* Problem [...] of this encounter (statuses as of 09/03/2023) [facility] N[facility]* Problem [...] of this encounter (statuses as of 09/05/2023) [facility] N[facility]ative* Problem [...] of this encounter (statuses as of 09/11/2023) [facility] N[facility]ative* Problem [...] meninges 12/26/2008 02/11/2020 Overview: Neuro Referral: Daija Alofnso, 10/19/08, Dx: A incidental ventromedial foramen magnum [...] of this encounter (statuses as of 09/14/2023) [facility] Narrative* Problem Noted Date Diagnosed Date Resolved Date ACS (acute coronary syndrome) 01/03/2020 02/11/2020 BCC (basal cell carcinoma), arm 05/25/2016 03/21/2017 Overview: Hyperlipemia 10/20/2013 10/23/2015 Meningioma 10/20/2013 02/22/2015 Abnormal mammogram, unspecified 08/19/2013 02/22/2015 Occipital neuralgia 02/25/2013 02/23/20 15 Diverticulosis 08/16/2012 02/22/2015 Eustachian tube dysfunction 08/30/2009 02/22/2015 Urgency of urination 08/19/2009 04/20/2 015 Postmenopausal atrophic vaginitis 08/19/2009 02/22/2015 Labyrinthine [...] of this encounter (statuses as of 09/15/2023) [facility] N[facility]* Problem [...] of this encounter (statuses as of 09/20/2023) [facility] Narrative* Problem [...] of this encounter (statuses as of 10/02/2023) [facility]* Problem [...] of this encounter (statuses as of 10/05/2023) [facility] Narrative* Problem [...] of this encounter (statuses as of 12/07/2023) [facility] N[facility]* Problem [...] of this encounter (statuses as of 12/12/2023) [facility] Narrative* Problem [...] disease 03/21/2017 Overview: Dr.Ken Reyes, Last Stress 4/1/08, negative Type II or unspecified type diabetes mellitus without mention of complication, uncontrolled 12/26/2008 documented as of this encounter (statuses as of 12/26/2023) [facility] N[facility]* Problem [...] of this encounter (statuses as of 01/14/2024) [facility] N[facility]* Problem [...] of this encounter (statuses as of 01/14/2024) [facility] Narrative* Problem [...] of this encounter (statuses as of 01/18/2024) [facility] N[facility]ative* Problem [...] of this encounter (statuses as of 01/18/2024) [facility]* Chief Complaint HEMATURIA, ABN URETE R BLEEDING [place] referral possible [place] PMB ABN US RENAL Reason for Visit Thickened [facility] Work Phone: Chief complaint+Reason for visit Narrative* Chief Complaint HEMATURIA, ABN URETE R BLEEDING [place] referral possible [place] PMB ABN US RENAL ARM INJURY Reason for Visit Thickened [facility] Work Phone: Evaluation note* Diagnosis Urinary frequency- Primary Acute lower UTI Urinary tract infection, site not specified [facility]No assessment information availableWMarietta Osteopathic Clinic Work Phone: Evaluation note* Diagnosis Onset Date Resolution Status Thickened endometrium acute [facility] Work Phone: Evaluation note* Diagnosis Closed fracture of left shoulder with routine healing, subsequent encounter- Primary Mixed hyperlipidemia Obesity, Class I, BMI 30-34.9 Obesity, unspecified Type 2 diabetes mellitus with stage 3b chronic kidney disease, with long-term current use of insulin ([facility]) [facility] Diagnosis Type 2 diabetes mellitus with stage 3b chronic kidney disease, with long-term current use of insulin ([facility])- Primary History of CVA (cerebrovascular accident) Transient ischemic attack (TIA), and cerebral infarction without residual deficits Closed fracture of left shoulder with routine healing, subsequent encounter [facility] Diagnosis Type 2 diabetes mellitus with stage 3b chronic kidney disease, with long-term current use of insulin (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 [facility] Diagnosis Mixed hyperlipidemia [facility] Diagnosis Idiopathic gout of multiple sites, unspecified chronicity Hyperuricemia Other abnormal blood chemistry [facility]* Diagnosis 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) Occlusion and stenosis of unspecified precerebral artery with cerebral infarction [facility]* Diagnosis URI, acute- Primary Acute upper respiratory infections of unspecified site [facility]* Diagnosis Encounter for immunization- Primary Need for other specified prophylactic vaccination against single bacterial disease [facility] Diagnosis Hypertension goal BP (blood pressure) < 150/90- Primary Unspecified essential hypertension Type 2 diabetes mellitus with stage 3b chronic kidney disease, with long-term current use of insulin (HCC) Hypertensive kidney disease with stage 3b chronic kidney disease (HCC) [facility] Diagnosis Type 2 diabetes mellitus with stage 3b chronic kidney disease, with long-term current use of insulin (HCC) Hypertensive kidney disease with stage 3b chronic kidney disease (HCC) Hypertension goal BP (blood pressure) < 150/90 Unspecified essential hypertension [facility]* Diagnosis Type 2 diabetes mellitus with [...] ventricular response (HCC) [facility] Diagnosis Type 2 diabetes mellitus with [...] failure type (HCC) [facility]* Diagnosis Mixed hyperlipidemia documented in this encounter [facility] note* Diagnosis Congestive heart failure, unspecified HF chronicity, unspecified heart failure type (HCC)- Primary [facility]* Diagnosis Type 2 diabetes mellitus with [...] use of medication [facility]* Diagnosis Type 2 diabetes mellitus with hyperglycemia, with long-term current use of insulin (HCC)- Primary [facility]* Diagnosis Screening for diabetic retinopathy- Primary [...] both ear canals [facility] Diagnosis HYPERTENSION NOS- Primary Unspecified essential [...] single bacterial disease [facility]* Diagnosis HYPERTENSION NOS- Primary Unspecified essential [...] coma, without long-term current use of insulin ([facility])- Primary CKD (chronic kidney disease), stage 3 (moderate) Hypertension goal BP (blood pressure) < 150/90 Unspecified essential hypertension Heart failure with reduced ejection fraction (HCC)- Primary Heart failure, unspecified Hypertension goal BP (blood pressure) < 150/90 Unspecified essential hypertension S/P CABG x 4 Postsurgical aortocoronary bypass status Paroxysmal atrial fibrillation with rapid ventricular response ([facility]) [facility] Diagnosis HYPERTENSION NOS- Primary Unspecified essential [...] disease, with long-term current use of insulin ([facility])- Primary Hyperuricemia Other abnormal blood chemistry Vitamin [...] anemia Anemia, unspecified [facility] Diagnosis HYPERTENSION NOS- Primary Unspecified essential [...] Edema, unspecified type [facility]* Diagnosis HYPERTENSION NOS- Primary Unspecified essential [...] unspecified hyperlipidemia type [facility]* Diagnosis HYPERTENSION NOS- Primary Unspecified essential [...] Unspecified essential hypertension [facility] Diagnosis HYPERTENSION NOS- Primary Unspecified essential [...] Unspecified essential hypertension [facility]* Diagnosis Onset Date Resolution Status Admit Date Atherosclerosis of coronary artery of [place] heart without angina pectoris chronic April 30, 2025 3:19pm Benign hypertension chronic April 30, 2025 3:19pm HLD (hyperlipidemia) chronic April 30, 2025 3:19pm Ischemic cardiomyopathy chronic J 2024 3:19pm Paroxysmal atrial fibrillati on with RVR chronic April 30, 2025 3:19pm [facility] Work Phone: Evaluation note* Diagnosis [...] with long-term current use of insulin (HCC) [facility] Diagnosis HYPERTENSION NOS- Primary Unspecified essential [...] Primary Routine general medical examination at a health care facility Hypertensive kidney disease with stage 3b chronic kidney disease (HCC) Screening for depression Encounter for screening examination for other mental health and behavioral disorders Mild anemia Anemia, unspecified Type 2 diabetes mellitus with stage 3b chronic kidney disease, with long-term current use of insulin (HCC) Chronic renal disease, stage IV (HCC) Chronic kidney disease, Stage IV (severe) [facility] Diagnosis HYPERTENSION NOS- Primary Unspecified essential [...] Hematuria, unspecified type documented in this encounter [facility] for referral (narrative)No reason for referral information availableFranciscan [facility] Work Phone: Summary Purpose Family History [...] FoundDocuments on File Type Date Recorded Patient Blood Coordinator Expl anation Advance Directive(s) 01/20/2020 10:12 AM Advance Directive(s) 01/06/2020 11:19 AM Advance Directive(s) 01/05/2020 10:03 AM Documents on File Type Date Recorded Patient Blood Coordinator Expl anation Advance Directive(s) 01/20/2020 10:12 AM Advance Directive Response Recorded Date/ Time Advance Directives Yes May 12 1:59pm Living Will Yes March 16, 2020 1 1:00am Power of Cottage Parent Yes March 16, 2020 11:00am Advance Directive Response Recorded Date/ Time Name of Medical Power of Cottage Parent ARISTEO SAUNDERS October 03, 2022 2:14pm Advance Directives Yes May 12 4 12:59pm Living Will Yes October 03, 2 022 2:14pm Power of Cottage Parent Yes October 03, 2022 2:14pm Advance Directive Response Recorded Date/ Time Name of Medical Power of Cottage Parent ARISTEO SAUNDERS October 03, 2022 3:14pm Advance Directives Yes May 12 4 1:59pm Living Will Yes October 03, 2 022 3:14pm Power of Cottage Parent Yes October 03, 2022 3:14pm Documents on File Type Date Recorded Patient Blood Coordinator Expl anation Advance Directive(s) 01/20/2020 10:12 AM Advance Directive Response Recorded Date/ Time Living Will Yes January 05, 2025 12:28pm Do you have a Healthcare Power of Cottage Parent? Yes January 05, 2025 12:28pm Name of Medical Power of Cottage Parent Aristeo Saunders January 05, 2025 12:28pm Advance Directives Yes May 12 1:59pm Hospital Course Note HNO ID: [id number] Author: Livan Rivera Service: Cardiac Surgery Author Type: Physician Type: [...] AND MEDICAL TEAM: [facility] Doctor: Yanet Rivera Primary Care Provider: Anju Pearce MD My Medical Team Members: Treatment Team: Attending Provider: Yanet Rivear Consulting: Ann Echeverria Consulting: Cesar Greenfield (more content not included)... Note HNO ID: [id number] Author: Ever Lanier CNP Service: Cardiac Surgery Author Type: Nurse Practitioner Type: Procedures Filed: 01/14/2020 9:39 AM Note Text: BEDSIDE PROCEDURE NOTE Epicardardial Paing wire removal Procedure Date/Start Time: 01/14/2020 9:30 AM Performed by: Erin Lanier CNP Authorized by: Erin Lanier CNP The risks, benefits and alternatives of the procedure were reviewed with the patient/patient corporate sales representative. The patient/patient corporate sales representative agreed to proceed. Informed Consent Written Consent Obtained: N/A [place] Protocol Pre-procedure Details: Personnel directly involved with [...] not included)... Procedure Findings Note HNO ID: [id number] Author: Ever walter (Thiago) THIAGO Lanier Service: Cardiac Surgery Author Type: Nurse Practitioner Type: Procedures Filed: 01/14/2020 9:39 AM Note Text: BEDSIDE PROCEDURE NOTE Epicardardial Paing wire removal Procedure Date/Start Time: 01/14/2020 9:30 AM Performed by: Erin Lanier CNP Authorized by: Erin Harkins) THIAGO Lanier The risks, benefits and alternatives of the procedure were reviewed with the patient/patient corporate sales representative. The patient/patient corporate sales representative agreed to proceed. Informed Consent Written Consent Obtained: N/A [place] Protocol Pre-procedure Details: Personnel directly involved with [...] Admit Date Atherosclerosis of coronary artery of [place] heart without angina pectoris April 30, 2025 [...] Referral Specialty Diagnoses / Procedures Referred By Angy t Referred To Contact Ent - Otolaryngology Diagnoses Excessive cerumen in both ear canals Procedures CONSULT TO ENT OFFICE/OUTPATIENT [facility] [place] 60 MINUTES DavisIshmael, FAMILY INTERVENTION SPECIALIST.NUCLEAR MEDICINE TECH [address] [place] [address] Referral ID Status Reason Start Date Expiration Date Visits Requested Visits Authorized [id number] Authorized PCP Requested Referral 05/12/2024 05/12/2025 1 1 Specialty Diagnoses / Procedures Referred By Contac t Referred To Contact Cardiology Diagnoses Heart failure with reduced ejection fraction (HCC) Hypertension goal BP (blood pressure) < 150/90 S/P CABG x 4 Paroxysmal atrial fibrillation with rapid ventricular response (HCC) Procedures CONSULT TO CARDIOLOGY OFFICE/OUTPATIENT [facility] [place] 60 MINUTES DavisIshmael, FAMILY INTERVENTION SPECIALIST.NUCLEAR MEDICINE TECH [address] [place] [address] Referral ID Status Reason Start Date Expiration Date Visits Requested Visits Authorized [id number] Authorized PCP Requested Referral 4 09/18/2025 1 1 Specialty Diagnoses / Procedures Referred By Contac t [facility]erred [facility] Diagnoses Heart failure with reduced ejection fraction (HCC) Hypertension goal BP (blood pressure) < 150/90 S/P CABG x 4 Paroxysmal atrial fibrillation with rapid ventricular response (HCC) Procedures ECHO ECHO TTHRC R-T 2D W/WOM-MODE COMPL SPEC&COLR D Davis Ishmael, FAMILY INTERVENTION SPECIALIST.NUCLEAR MEDICINE TECH [address] [place] [address] [facility] [address] [place] [address] Referral ID Status Reason Start Date Expiration Date Visits Requested Visits Authorized [id number] New Request Auto-Generat ed Referral 4 09/18/2025 1 1 Additional Source Comments INFORMATION SOURCE (unrecogn ized section and content) DATE CREATED AUTHOR 03/20/2020 [facility] DATE CREATED AUTHOR AUTHOR'S ORGANIZ ATION 05/23/2020 [facility] DATE CREATED AUTHOR AUTHOR'S ORGANIZ ATION 05/01/2025 [facility] DATE CREATED AUTHOR AUTHOR'S ORGANIZ ATION 06/03/2025 [facility] Source Comments (unrecognize d section and content) In the event this informatio n is protected by the Federal Confidentiality of Alcohol and Drug Abuse Patient Records regulations: The Federal rules restrict any use of the information to criminally investigate or prosecute any alcohol or drug abuse patient.[facility] the event this information is protected by the Federal Confidentiality of Alcohol and Drug Abuse Patient Records regulations: The Federal rules restrict any use of the information to criminally investigate or prosecute any alcohol or drug abuse patient.[facility] HospitalIn the event this information is protected by the Federal Confidentiality of Alcohol and Drug Abuse Patient Records regulations: The Federal rules restrict any use of the information to criminally investigate or prosecute any alcohol or drug abuse patient.[facility] HospitalIn the event this information is protected by the Federal Confidentiality of Alcohol and Drug Abuse Patient Records regulations: The Federal rules restrict any use of the information to criminally investigate or prosecute any alcohol or drug abuse patient.[facility] HospitalIn the event this information is protected by the Federal Confidentiality of Alcohol and Drug Abuse Patient Records regulations: The Federal rules restrict any use of the information to criminally investigate or prosecute any alcohol or drug abuse patient.[facility] HospitalIn the event this information is protected by the Federal Confidentiality of Alcohol and Drug Abuse Patient Records regulations: The Federal rules restrict any use of the information to criminally investigate or prosecute any alcohol or drug abuse patient.[facility] HospitalIn the event this information is protected by the Federal Confidentiality of Alcohol and Drug Abuse Patient Records regulations: The Federal rules restrict any use of the information to criminally investigate or prosecute any alcohol or drug abuse patient.[facility] HospitalIn the event this information is protected by the Federal Confidentiality of Alcohol and Drug Abuse Patient Records regulations: The Federal rules restrict any use of the information to criminally investigate or prosecute any alcohol or drug abuse patient.[facility] HospitalIn the event this information is protected by the Federal Confidentiality of Alcohol and Drug Abuse Patient Records regulations: The Federal rules restrict any use of the information to criminally investigate or prosecute any alcohol or drug abuse patient.[facility] HospitalIn the event this information is protected by the Federal Confidentiality of Alcohol and Drug Abuse Patient Records regulations: The Federal rules restrict any use of the information to criminally investigate or prosecute any alcohol or drug abuse patient.[facility] HospitalIn the event this information is protected by the Federal Confidentiality of Alcohol and Drug Abuse Patient Records regulations: The Federal rules restrict any use of the information to criminally investigate or prosecute any alcohol or drug abuse patient.[facility] HospitalIn the event this information is protected by the Federal Confidentiality of Alcohol and Drug Abuse Patient Records regulations: The Federal rules restrict any use of the information to criminally investigate or prosecute any alcohol or drug abuse patient.[facility] HospitalIn the event this information is protected by the Federal Confidentiality of Alcohol and Drug Abuse Patient Records regulations: The Federal rules restrict any use of the information to criminally investigate or prosecute any alcohol or drug abuse patient.[facility] HospitalIn the event this information is protected by the Federal Confidentiality of Alcohol and Drug Abuse Patient Records regulations: The Federal rules restrict any use of the information to criminally investigate or prosecute any alcohol or drug abuse patient.[facility] HospitalIn the event this information is protected by the Federal Confidentiality of Alcohol and Drug Abuse Patient Records regulations: The Federal rules restrict any use of the information to criminally investigate or prosecute any alcohol or drug abuse patient.[facility] HospitalIn the event this information is protected by the Federal Confidentiality of Alcohol and Drug Abuse Patient Records regulations: The Federal rules restrict any use of the information to criminally investigate or prosecute any alcohol or drug abuse patient.[facility] HospitalIn the event this information is protected by the Federal Confidentiality of Alcohol and Drug Abuse Patient Records regulations: The Federal rules restrict any use of the information to criminally investigate or prosecute any alcohol or drug abuse patient.[facility] HospitalIn the event this information is protected by the Federal Confidentiality of Alcohol and Drug Abuse Patient Records regulations: The Federal rules restrict any use of the information to criminally investigate or prosecute any alcohol or drug abuse patient.[facility] HospitalIn the event this information is protected by the Federal Confidentiality of Alcohol and Drug Abuse Patient Records regulations: The Federal rules restrict any use of the information to criminally investigate or prosecute any alcohol or drug abuse patient.[facility] HospitalIn the event this information is protected by the Federal Confidentiality of Alcohol and Drug Abuse Patient Records regulations: The Federal rules restrict any use of the information to criminally investigate or prosecute any alcohol or drug abuse patient.[facility] HospitalIn the event this information is protected by the Federal Confidentiality of Alcohol and Drug Abuse Patient Records regulations: The Federal rules restrict any use of the information to criminally investigate or prosecute any alcohol or drug abuse patient.[facility] HospitalIn the event this information is protected by the Federal Confidentiality of Alcohol and Drug Abuse Patient Records regulations: The Federal rules restrict any use of the information to criminally investigate or prosecute any alcohol or drug abuse patient.[facility] HospitalIn the event this information is protected by the Federal Confidentiality of Alcohol and Drug Abuse Patient Records regulations: The Federal rules restrict any use of the information to criminally investigate or prosecute any alcohol or drug abuse patient.[facility] HospitalIn the event this information is protected by the Federal Confidentiality of Alcohol and Drug Abuse Patient Records regulations: The Federal rules restrict any use of the information to criminally investigate or prosecute any alcohol or drug abuse patient.[facility] HospitalIn the event this information is protected by the Federal Confidentiality of Alcohol and Drug Abuse Patient Records regulations: The Federal rules restrict any use of the information to criminally investigate or prosecute any alcohol or drug abuse patient.[facility] HospitalIn the event this information is protected by the Federal Confidentiality of Alcohol and Drug Abuse Patient Records regulations: The Federal rules restrict any use of the information to criminally investigate or prosecute any alcohol or drug abuse patient.[facility] HospitalIn the event this information is protected by the Federal Confidentiality of Alcohol and Drug Abuse Patient Records regulations: The Federal rules restrict any use of the information to criminally investigate or prosecute any alcohol or drug abuse patient.[facility] HospitalIn the event this information is protected by the Federal Confidentiality of Alcohol and Drug Abuse Patient Records regulations: The Federal rules restrict any use of the information to criminally investigate or prosecute any alcohol or drug abuse patient.[facility] HospitalIn the event this information is protected by the Federal Confidentiality of Alcohol and Drug Abuse Patient Records regulations: The Federal rules restrict any use of the information to criminally investigate or prosecute any alcohol or drug abuse patient.[facility] HospitalIn the event this information is protected by the Federal Confidentiality of Alcohol and Drug Abuse Patient Records regulations: The Federal rules restrict any use of the information to criminally investigate or prosecute any alcohol or drug abuse patient.[facility] HospitalIn the event this information is protected by the Federal Confidentiality of Alcohol and Drug Abuse Patient Records regulations: The Federal rules restrict any use of the information to criminally investigate or prosecute any alcohol or drug abuse patient.[facility] HospitalIn the event this information is protected by the Federal Confidentiality of Alcohol and Drug Abuse Patient Records regulations: The Federal rules restrict any use of the information to criminally investigate or prosecute any alcohol or drug abuse patient.[facility] HospitalIn the event this information is protected by the Federal Confidentiality of Alcohol and Drug Abuse Patient Records regulations: The Federal rules restrict any use of the information to criminally investigate or prosecute any alcohol or drug abuse patient.[facility] HospitalIn the event this information is protected by the Federal Confidentiality of Alcohol and Drug Abuse Patient Records regulations: The Federal rules restrict any use of the information to criminally investigate or prosecute any alcohol or drug abuse patient.[facility] HospitalIn the event this information is protected by the Federal Confidentiality of Alcohol and Drug Abuse Patient Records regulations: The Federal rules restrict any use of the information to criminally investigate or prosecute any alcohol or drug abuse patient.[facility] HospitalIn the event this information is protected by the Federal Confidentiality of Alcohol and Drug Abuse Patient Records regulations: The Federal rules restrict any use of the information to criminally investigate or prosecute any alcohol or drug abuse patient.[facility] HospitalIn the event this information is protected by the Federal Confidentiality of Alcohol and Drug Abuse Patient Records regulations: The Federal rules restrict any use of the information to criminally investigate or prosecute any alcohol or drug abuse patient.[facility] HospitalIn the event this information is protected by the Federal Confidentiality of Alcohol and Drug Abuse Patient Records regulations: The Federal rules restrict any use of the information to criminally investigate or prosecute any alcohol or drug abuse patient.[facility] HospitalIn the event this information is protected by the Federal Confidentiality of Alcohol and Drug Abuse Patient Records regulations: The Federal rules restrict any use of the information to criminally investigate or prosecute any alcohol or drug abuse patient.[facility] HospitalIn the event this information is protected by the Federal Confidentiality of Alcohol and Drug Abuse Patient Records regulations: The Federal rules restrict any use of the information to criminally investigate or prosecute any alcohol or drug abuse patient.[facility] HospitalIn the event this information is protected by the Federal Confidentiality of Alcohol and Drug Abuse Patient Records regulations: The Federal rules restrict any use of the information to criminally investigate or prosecute any alcohol or drug abuse patient.[facility] HospitalIn the event this information is protected by the Federal Confidentiality of Alcohol and Drug Abuse Patient Records regulations: The Federal rules restrict any use of the information to criminally investigate or prosecute any alcohol or drug abuse patient.[facility] HospitalIn the event this information is protected by the Federal Confidentiality of Alcohol and Drug Abuse Patient Records regulations: The Federal rules restrict any use of the information to criminally investigate or prosecute any alcohol or drug abuse patient.[facility] HospitalIn the event this information is protected by the Federal Confidentiality of Alcohol and Drug Abuse Patient Records regulations: The Federal rules restrict any use of the information to criminally investigate or prosecute any alcohol or drug abuse patient.[facility] HospitalIn the event this information is protected by the Federal Confidentiality of Alcohol and Drug Abuse Patient Records regulations: The Federal rules restrict any use of the information to criminally investigate or prosecute any alcohol or drug abuse patient.[facility] HospitalIn the event this information is protected by the Federal Confidentiality of Alcohol and Drug Abuse Patient Records regulations: The Federal rules restrict any use of the information to criminally investigate or prosecute any alcohol or drug abuse patient.[facility] HospitalIn the event this information is protected by the Federal Confidentiality of Alcohol and Drug Abuse Patient Records regulations: The Federal rules restrict any use of the information to criminally investigate or prosecute any alcohol or drug abuse patient.[facility] the event this information is protected by the Federal Confidentiality of Alcohol and Drug Abuse Patient Records regulations: The Federal rules restrict any use of the information to criminally investigate or prosecute any alcohol or drug abuse patient.[facility] HospitalIn the event this information is protected by the Federal Confidentiality of Alcohol and Drug Abuse Patient Records regulations: The Federal rules restrict any use of the information to criminally investigate or prosecute any alcohol or drug abuse patient.[facility] HospitalIn the event this information is protected by the Federal Confidentiality of Alcohol and Drug Abuse Patient Records regulations: The Federal rules restrict any use of the information to criminally investigate or prosecute any alcohol or drug abuse patient.[facility] ClinicIn the event this information is protected by the Federal Confidentiality of Alcohol and Drug Abuse Patient Records regulations: The Federal rules restrict any use of the information to criminally investigate or prosecute any alcohol or drug abuse patient.[facility] HospitalIn the event this information is protected by the Federal Confidentiality of Alcohol and Drug Abuse Patient Records regulations: The Federal rules restrict any use of the information to criminally investigate or prosecute any alcohol or drug abuse patient.[facility] HospitalIn the event this information is protected by the Federal Confidentiality of Alcohol and Drug Abuse Patient Records regulations: The Federal rules restrict any use of the information to criminally investigate or prosecute any alcohol or drug abuse patient.[facility] HospitalIn the event this information is protected by the Federal Confidentiality of Alcohol and Drug Abuse Patient Records regulations: The Federal rules restrict any use of the information to criminally investigate or prosecute any alcohol or drug abuse patient.[facility] HospitalIn the event this information is protected by the Federal Confidentiality of Alcohol and Drug Abuse Patient Records regulations: The Federal rules restrict any use of the information to criminally investigate or prosecute any alcohol or drug abuse patient.[facility] HospitalIn the event this information is protected by the Federal Confidentiality of Alcohol and Drug Abuse Patient Records regulations: The Federal rules restrict any use of the information to criminally investigate or prosecute any alcohol or drug abuse patient.[facility] HospitalIn the event this information is protected by the Federal Confidentiality of Alcohol and Drug Abuse Patient Records regulations: The Federal rules restrict any use of the information to criminally investigate or prosecute any alcohol or drug abuse patient.[facility] HospitalIn the event this information is protected by the Federal Confidentiality of Alcohol and Drug Abuse Patient Records regulations: The Federal rules restrict any use of the information to criminally investigate or prosecute any alcohol or drug abuse patient.[facility] HospitalIn the event this information is protected by the Federal Confidentiality of Alcohol and Drug Abuse Patient Records regulations: The Federal rules restrict any use of the information to criminally investigate or prosecute any alcohol or drug abuse patient.[facility] Reason for Visit (unrecogniz ed section [...] Comments Population Health Navigation Outreach 01/19/2025 [employer] PCSA Reason Comments Nausea & Vomiting [...] Care Teams (unrecognized sec tion and content) Freight Claim Investigator Relationship Specialty Start Date End Date Anju Pearce MD [address] [facility] [place] [address] PCP - General Internal Medicine 08/09/17 Kaylee (Pharmacist), [place] [address] [place] [address] Pharmacist Pharmacy 12/30/18 Freight Claim Investigator Relationship Specialty Start Date End Date Anju Pearce MD [address] [place] [address] PCP - General Internal Medicine 08/09/17 Kaylee (Pharmacist), [place] [address] [place] [address] Pharmacist Pharmacy 12/30/18 Freight Claim Investigator Relationship Specialty Start Date End Date Anju Pearce MD [address] [facility] [place] [address] PCP - General Internal Medicine 08/09/17 Kaylee (Pharmacist), [place] [address] [place] [address] Pharmacist Pharmacy 12/30/18 Freight Claim Investigator Relationship Specialty Start Date End Date Anju Pearce MD [address] [facility] [place] [address] PCP - General Internal Medicine 08/09/17 Kaylee (Pharmacist), [place] [address] [place] [address] Pharmacist Pharmacy 12/30/18 Freight Claim Investigator Relationship Specialty Start Date End Date Anju Pearce MD [address] [facility] [place] [address] PCP - General Internal Medicine 08/09/17 Majercak (Pharmacist), [place] [address] [place] [address] Pharmacist Pharmacy 12/30/18 Freight Claim Investigator Relationship Specialty Start Date End Date Anju Pearce MD [address] [facility] [place] [address] PCP - General Internal Medicine 08/09/17 ercak (Pharmacist), [place] [place] [address] Pharmacist Pharmacy 12/30/18 Freight Claim Investigator Relationship Specialty Start Date End Date Anju Pearce MD [address] [facility] [place] [address] PCP - General Internal Medicine 08/09/17 aKylee (Pharmacist), [place] [address] [place] [address] Pharmacist Pharmacy 12/30/18 Freight Claim Investigator Relationship Specialty Start Date End Date Anju Pearce MD [address] [facility] [place] [address] PCP - General Internal Medicine 08/09/17 Niravak (Pharmacist), [place] [address] [place] [address] Pharmacist Pharmacy 12/30/18 Freight Claim Investigator Relationship Specialty Start Date End Date Anju Pearce MD [address] [facility] [place] [address] PCP - General Internal Medicine 08/09/17 Kaylee (Pharmacist), [place] [address] [place] [address] Pharmacist Pharmacy 12/30/18 Team Status: Active Member Role Status Dates Dr. Anju Pearce MD Family Provider Active Dr. Anju Pearce MD Primary Care Provider Active Team Status: Inactive Member Role Status Dates Dr. Anju Pearce MD Primary Care Provider, Referr ing Provider Active Farida PADILLA, [place] Attending Provider Active Team Status: Inactive Member Role Status Dates Dr. Anju Pearce MD Primary Care Provider Active Dr. Carlos Navarro MD Attending Provider, Emergency Provider Active Team Status: Active Member Role Status Dates Dr. Anju Pearce MD Primary Care Provider Active ROHAN FELIX Attending Provider, Referring Provider Active Freight Claim Investigator Relationship Specialty Start Date End Date Anju Pearce MD [address] [facility] [place] [address] PCP - General Internal Medicine 08/09/17 Kaylee (Pharmacist), [place] [address] [place] [address] Pharmacist Pharmacy 12/30/18 Freight Claim Investigator Relationship Specialty Start Date End Date Anju Pearce MD [address] [facility] [place] [address] PCP - General Internal Medicine 08/09/17 Kaylee (Pharmacist), [place] [place] [address] Pharmacist Pharmacy 12/30/18 Freight Claim Investigator Relationship Specialty Start Date End Date Anju Pearce MD [address] [facility] [place] [address] PCP - General Internal Medicine 08/09/17 Kaylee (Pharmacist), [place]ignon [address] [place] [address] Pharmacist Pharmacy 12/30/18 Freight Claim Investigator Relationship Specialty Start Date End Date Anju Pearce MD [address] [facility] [place] [address] PCP - General Internal Medicine 08/09/17 Kaylee (Pharmacist), Mignon [address] [place] [address] Pharmacist Pharmacy 12/30/18 Freight Claim Investigator Relationship Specialty Start Date End Date Anju Pearce MD [address] [facility] [place] [address] PCP - General Internal Medicine 08/09/17 Kaylee (Pharmacist), Mignon [address] [place] [address] Pharmacist Pharmacy 12/30/18 Freight Claim Investigator Relationship Specialty Start Date End Date Anju Pearce MD [address] [facility] [place] [address] PCP - General Internal Medicine 08/09/17 Niravak (Pharmacist), Mignon [address] [place] [address] Pharmacist Pharmacy 12/30/18 Freight Claim Investigator Relationship Specialty Start Date End Date Anju Pearce MD [address] [place] [address] PCP - General Internal Medicine 08/09/17 Kaylee (Pharmacist), Mignon [address] [place] [address] Pharmacist Pharmacy 12/30/18 Freight Claim Investigator Relationship Specialty Start Date End Date Anju Pearce MD [address] [place] [address] PCP - General Internal Medicine 08/09/17 Kaylee (Pharmacist), Mignon [address] [place] [address] Pharmacist Pharmacy 12/30/18 Freight Claim Investigator Relationship Specialty Start Date End Date Anju Pearce MD [address] [place] [address] PCP - General Internal Medicine 08/09/17 Kaylee (Pharmacist), Mignon [address] [place] [address] Pharmacist Pharmacy 12/30/18 Freight Claim Investigator Relationship Specialty Start Date End Date Anju Pearce MD [address] [place] [address] PCP - General Internal Medicine 08/09/17 Kaylee (Pharmacist), Mignon [address] [place] [address] Pharmacist Pharmacy 12/30/18 Freight Claim Investigator Relationship Specialty Start Date End Date Anju Pearce MD [address] [facility] [place] [address] PCP - General Internal Medicine 08/09/17 Kaylee (Pharmacist), Mignon [address] [place] [address] Pharmacist Pharmacy 12/30/18 Freight Claim Investigator Relationship Specialty Start Date End Date Anju Pearce MD [address] [place] [address] PCP - General Internal Medicine 08/09/17 Kaylee (Pharmacist), Mignon [address] [place] [address] Pharmacist Pharmacy 12/30/18 Freight Claim Investigator Relationship Specialty Start Date End Date Anju Pearce MD [address] [place] [address] PCP - General Internal Medicine 08/09/17 [place]Galilea [place] [address] [place] [address] Pharmacist Pharmacy 10/31/23 Freight Claim Investigator Relationship Specialty Start Date End Date Anju Pearce MD [address] [place] [address] PCP - General Internal Medicine 08/09/17 HayleyGalilea [place] [address] [place] [address] Pharmacist Pharmacy 10/31/23 Freight Claim Investigator Relationship Specialty Start Date End Date Anju Pearce MD [address] [place] [address] PCP - General Internal Medicine 08/09/17 Freight Claim Investigator Relationship Specialty Start Date End Date Anju Perace MD [address] [place] [address] PCP - General Internal Medicine 08/09/17 Freight Claim Investigator Relationship Specialty Start Date End Date Anju Pearce MD [address] [facility] [place] [address] PCP - General Internal Medicine 08/09/17 Freight Claim Investigator Relationship Specialty Start Date End Date Anju Pearce MD [address] [facility] [place] [address] PCP - General Internal Medicine 08/09/17 Freight Claim Investigator Relationship Specialty Start Date End Date Anju Pearce MD [address] [facility] [place] [address] PCP - General Internal Medicine 08/09/17 Freight Claim Investigator Relationship Specialty Start Date End Date Anju Pearce MD [address] [facility] [place] [address] PCP - General Internal Medicine 08/09/17 Freight Claim Investigator Relationship Specialty Start Date End Date Anju Pearce MD [address] [facility] [place] [address] PCP - General Internal Medicine 08/09/17 Freight Claim Investigator Relationship Specialty Start Date End Date Anju Pearce MD [address] [facility] [place] [address] PCP - General Internal Medicine 08/09/17 Freight Claim Investigator Relationship Specialty Start Date End Date Anju Pearce MD [address] [facility] [place] [address] PCP - General Internal Medicine 08/09/17 Freight Claim Investigator Relationship Specialty Start Date End Date Anju Pearce MD [address] [facility] [place] [address] PCP - General Internal Medicine 08/09/17 Freight Claim Investigator Relationship Specialty Start Date End Date Anju Pearce MD [address] [facility] [place] [address] PCP - General Internal Medicine 08/09/17 Ishmael Davis, FAMILY INTERVENTION SPECIALIST.NUCLEAR MEDICINE TECH [address] [place] [address] Community Relations Manager Internal Medicine 10/13/24 Iesha Waddell FAMILY INTERVENTION SPECIALIST.LENS GRINDER ROUGH [address] [place] [address] Community Relations Manager Internal Medicine 10/13/24 Freight Claim Investigator Relationship Specialty Start Date End Date Ajnu Pearce MD [address] [place] [address] PCP - General Internal Medicine 08/09/17 Ishmael Davis, FAMILY INTERVENTION SPECIALIST.NUCLEAR MEDICINE TECH [address] [place] [address] Community Relations Manager Internal Medicine 10/13/24 Iesha Waddell FAMILY INTERVENTION SPECIALIST.LENS GRINDER ROUGH [address] [facility] [place] [address] [facility] Internal Medicine 10/13/24 Freight Claim Investigator Relationship Specialty Start Date End Date Anju Pearce MD [address] [facility] [place] [address] PCP - General Internal Medicine 08/09/17 Ishmael Davis, FAMILY INTERVENTION SPECIALIST.NUCLEAR MEDICINE TECH [address] [place] [address] Community Relations Manager Internal Medicine 10/13/24 Iesha Waddell APRN.LENS GRINDER ROUGH [address] [place] [address] Community Relations Manager Internal Medicine 10/13/24 Freight Claim Investigator Relationship Specialty Start Date End Date Anju Pearce MD [address] [place] [address] PCP - General Internal Medicine 08/09/17 Ishmael Davis, FAMILY INTERVENTION SPECIALIST.NUCLEAR MEDICINE TECH [address] [place] [address] Community Relations Manager Internal Medicine 10/13/24 Iesha Waddell APRN.LENS GRINDER ROUGH [address] [place] [address] Community Relations Manager Internal Medicine 10/13/24 Freight Claim Investigator Relationship Specialty Start Date End Date Anju Pearce MD [address] [place] [address] PCP - General Internal Medicine 08/09/17 Ishmael Davis, FAMILY INTERVENTION SPECIALIST.NUCLEAR MEDICINE TECH [address] [place] [address] Community Relations Manager Internal Medicine 10/13/24 Iesha Waddell APRN.LENS GRINDER ROUGH [address] [place] [address] Community Relations Manager Internal Medicine 10/13/24 Freight Claim Investigator Relationship Specialty Start Date End Date Anju Pearce MD [address] [place] [address] PCP - General Internal Medicine 08/09/17 Ishmael Davis, FAMILY INTERVENTION SPECIALIST.NUCLEAR MEDICINE TECH [address] [place] [address] Community Relations Manager Internal Medicine 10/13/24 Iesha Waddell FAMILY INTERVENTION SPECIALIST.LENS GRINDER ROUGH [address] [place] [address] Community Relations Manager Internal Medicine 10/13/24 Freight Claim Investigator Relationship Specialty Start Date End Date Anju Pearce MD [address] [place] [address] PCP - General Internal Medicine 08/09/17 Ishmael Davis, FAMILY INTERVENTION SPECIALIST.NUCLEAR MEDICINE TECH [address] [place] [address] Community Relations Manager Internal Medicine 10/13/24 Iesha Waddell APRN.LENS GRINDER ROUGH [address] [place] [address] Community Relations Manager Internal Medicine 01/27/25 Freight Claim Investigator Relationship Specialty Start Date End Date Anju Pearce MD [address] [place] [address] PCP - General Internal Medicine 08/09/17 Ishmael Davis, FAMILY INTERVENTION SPECIALIST.NUCLEAR MEDICINE TECH [address] [place] [address] Community Relations Manager Internal Medicine 10/13/24 Iesha Waddell FAMILY INTERVENTION SPECIALIST.LENS GRINDER ROUGH [address] [place] [address] Community Relations Manager Internal Medicine 01/27/25 Freight Claim Investigator Relationship Specialty Start Date End Date Anju Pearce MD [address] [place] [address] PCP - General Internal Medicine 08/09/17 Ishmael Davis, FAMILY INTERVENTION SPECIALIST.NUCLEAR MEDICINE TECH [address] [facility] [place] [address] Community Relations Manager Internal Medicine 10/13/24 Iesha Waddell FAMILY INTERVENTION SPECIALIST.LENS GRINDER ROUGH [address] [place] [address] [facility] Internal Medicine 01/27/25 Freight Claim Investigator Relationship Specialty Start Date End Date Anju Pearce MD [address] [facility] [place] [address] PCP - General Internal Medicine 08/09/17 Ishmael Davis, FAMILY INTERVENTION SPECIALIST.NUCLEAR MEDICINE TECH [address] [facility] [place] [address] [facility] Internal Medicine 10/13/24 Iesha Waddell FAMILY INTERVENTION SPECIALIST.LENS GRINDER ROUGH [address] [facility] [place] [address] [facility] Internal Medicine 01/27/25 Freight Claim Investigator Relationship Specialty Start Date End Date Anju Pearce MD [address] [facility] [place] [address] PCP - General Internal Medicine 08/09/17 Ishmael Davis, FAMILY INTERVENTION SPECIALIST.NUCLEAR MEDICINE TECH [address] [facility] [place] [address] Community Relations Manager Internal Medicine 10/13/24 Iesha Waddell APRN.LENS GRINDER ROUGH [address] [place] [address] Community Relations Manager Internal Medicine 01/27/25 Freight Claim Investigator Relationship Specialty Start Date End Date Anju Pearce MD [address] [place] [address] PCP - General Internal Medicine 08/09/17 Iesha Waddell FAMILY INTERVENTION SPECIALIST.LENS GRINDER ROUGH [address] [place] [address] Community Relations Manager Internal Medicine 01/27/25 Ishmael Davis APRN.NUCLEAR MEDICINE TECH [address] [place] [address] Community Relations Manager Internal Medicine 03/25/25 Freight Claim Investigator Relationship Specialty Start Date End Date Anju Pearce MD [address] [facility] [place] [address] PCP - General Internal Medicine 08/09/17 Iesha Waddell APRN.LENS GRINDER ROUGH [address] [place] [address] Community Relations Manager Internal Medicine 01/27/25 Ishmael Davis FAMILY INTERVENTION SPECIALIST.NUCLEAR MEDICINE TECH [address] [place] [address] Community Relations Manager Internal Medicine 03/25/25 Freight Claim Investigator Relationship Specialty Start Date End Date Anju Pearce MD [address] [place] [address] PCP - General Internal Medicine 08/09/17 Iesha Waddell APRN.LENS GRINDER ROUGH [address] [place] [address] Community Relations Manager Internal Medicine 01/27/25 Ishmael Davis, FAMILY INTERVENTION SPECIALIST.NUCLEAR MEDICINE TECH [address] [place] [address] Community Relations Manager Internal Medicine 03/25/25 Freight Claim Investigator Relationship Specialty Start Date End Date Anju Pearce MD [address] [place] [address] PCP - General Internal Medicine 08/09/17 Ishmael Davis, FAMILY INTERVENTION SPECIALIST.NUCLEAR MEDICINE TECH [address] [place] [address] Community Relations Manager Internal Medicine 10/13/24 03/24/25 Iesha Waddell, FAMILY INTERVENTION SPECIALIST.LENS GRINDER ROUGH [address] [place] [address] [facility] Internal Medicine 01/27/25 Ishmael Davis, FAMILY INTERVENTION SPECIALIST.NUCLEAR MEDICINE TECH [address] [place] [address] Community Relations Manager Internal Medicine 03/25/25 Team Status: Active Member [...] 30, 2025 End: April 30, 2025 Marika PADILLA, PA Attending Provider Active Start: April 30, 2025 End: April 30, 2025 Freight Claim Investigator Relationship Specialty Start Date End Date Anju Pearce MD [address] [facility] [place] [address] PCP - General Internal Medicine 08/09/17 Iesha Waddell APRN.LENS GRINDER ROUGH [address] [place] [address] Community Relations Manager Internal Medicine 01/27/25 Ishmael Davis APRN.NUCLEAR MEDICINE TECH [address] [place] [address] [facility] Internal Medicine 03/25/25 Freight Claim Investigator Relationship Specialty Start Date End Date Anju Pearce MD [address] [place] [address] PCP - General Internal Medicine 08/09/17 Iesha Waddell APRN.LENS GRINDER ROUGH [address] [place] [address] Community Relations Manager Internal Medicine 01/27/25 Ishmael Davis FAMILY INTERVENTION SPECIALIST.NUCLEAR MEDICINE TECH [address] [place] [address] [facility] Internal Medicine 03/25/25 Goals (unrecognized section and [...] BE BASED ON THE PRIMARY CLINICAL RECORDS. [facility] [employer] [facility]. provides no warranty or guarantee of the accuracy or completeness of information in this document.
[2025-06-14] MEDS: 0.9% Normal Saline (1000mL) 1,000 ML 125 ML IV ×2 (12:45→19:36)
[2025-06-14] MEDS: Heparin Injection (Vial) 5,000 UNIT/ML VIAL 5000 UNIT SC (20:42)
[2025-06-15] VITALS (7 sets, daily range): BP systolic 157–174; BP diastolic 52–69; PULSE 76–97; RESP 16–21; TEMP 36.6–37.2; O2SAT 92–94; BMI 29.7
[2025-06-15] MEDS: 0.9% Saline Lock 10 ML Syringe IV (00:21)
[2025-06-15] MEDS: 0.9% Normal Saline (1000mL) 1,000 ML 125 ML IV (04:06)
--- NOTE | 2025-06-15 06:30 | US_ITS ---
PROCEDURE: KIDNEY AND BLADDER 06/15/2025 REASON FOR EXAM: SHA TECHNIQUE: KIDNEY AND BLADDER COMPARISON: None FINDINGS: Kidneys: Normal renal sizes, parenchymal thicknesses, and echotextures. [place]: No hydronephrosis. Cysts or Masses: No cysts or large solid renal masses. RIGHT Kidney Size: 10.7 cm x 6.1 cm x 4.1 cm Volume: 141.65 mL Cortical Thickness (if discernible): 12 mm (>6mm is normal) LEFT Kidney Size: 8.2 cm x 4.1 cm x 3.2 cm Volume: 56.21 mL Cortical Thickness (if discernible): 11 mm (>6mm is normal) Urinary bladder is unremarkable. US/Kidney and Bladder IMPRESSION: NORMAL RENAL ULTRASOUND. Reading Location: [place] [address]
[2025-06-15 06:49] LABS: Hematocrit 28.1 % (37-47); Hemoglobin 9.0 g/dL (12.0-15.0); Immature Granulocytes Count 0.040 X10^3/uL (0.0-0.0); Mean Corp Hgb Conc 32.0 g/dL (32-36); Mean Corpuscular Volume 92.4 fL (81-99); Mean Platelet Vol. 11.0 fl (6.2-12.0); NRBC Flagged by Analyzer 0 % (0-5); Platelet Count 297 K/mm3 (150-450); RBC Distribution Width CV 14.3 % (11.6-14.6); RBC Distribution Width SD 48.2 fl (35.1-43.9); Red Blood Count 3.04 M/mm3 (4.2-5.4); White Blood Count 10.0 K/mm3 (4.4-11.0)
[2025-06-15 07:16] LABS: Anion Gap 12 (5-15); BUN 47 mg/dL (4-19); BUN/Creat Ratio 21.6 RATIO (10-20); Calcium,Total 8.5 mg/dL (7.6-11.0); Carbon Dioxide 16.4 mmol/L (21.0-32.0); Chloride 109 mmol/L (98-108); Estimated Creatinine Clearance 16.86 ml/min (50-250); Glucose 182 mg/dL (70-99); Magnesium 2.2 mg/dL (1.5-2.2); Potassium 5.2 mmol/L (3.3-5.1)
[2025-06-15] MEDS: Heparin Injection (Vial) 5,000 UNIT/ML VIAL 5000 UNIT SC ×2 (09:51→22:18)
--- NOTE | 2025-06-15 11:12 | CASEMGMT ---
RITA PEREZ Assessment: Face to Face with pt for initial transition planning/care coordination assessment. RITA PEREZ introduced self and role at [facility], pt voices understanding and consents to assessment. Pt is A&O x4 and answers all questions appropriately at this time. Pt sitting up in chair in no distress. Pt daughter in room, pt agreeable to discussing DC plan with daughter in the room. Care providers, pharmacy, and demographics verified/updated. Strata: 3 Admitting Dx: Acute Kidney Injury PCP: Kelvin Specialists: LISA Preferred Pharmacy: [facility] Prescription Benefit: yes LNOK: Daughter, Araceli Living Arrangements: Pt lives alone in a 2 level home with 1 step to enter. ADLs: Pt I with ADLs and IADLs. Transportation: Pt drives self and denies concerns with transportation. DME: [employer] and supplies. HHC/SNF: Denies Hx of. Pt states no concerns with going home at time of dc. Pt states no further concerns/needs. CM to follow. Advised pt to ask CM if any further question/concerns/needs arise, voices understanding. Pt Goal: Home Plan: Home with family support. [place] CM
--- NOTE | 2025-06-15 16:11 | CHAPLAIN ---
Type of Pastoral Visit _x__ Initial Visit ___ Follow-up Visit ___ On-call Visit ___ General Patient Visit ___ Spiritual Assessment ___ Family Conference ___ Bereavement ___ Rapid Response ___ Code Blue ___ Other (describe below) Pastoral Care Referral From _x__ Patient ___ Family ___ Nurse ___ Physician ___ Electrician Research ___ Lab Support Tech ___ Other (describe below) Sacrament/Intervention _x__ Active listening ___ Anointing ___ Sikhism ___ Bereavement ___ Communion _x__ Lelo exploration ___ _x__ Life review _x__ Prayer ___ Reconciliation ___ Sacrament of Sick _x__ Supportive presence ___ Wedding ___ Other (describe below) Pastoral Comments
--- NOTE | 2025-06-15 17:04 | PCM.PN.HOSP ---
Subjective Subjective Doing well, feels better than when she came in. Renal functions improved and ultrasound of her kidneys was negative Objective Data Objective Data Vital Signs: Vital Signs Temp Pulse Resp BP Pulse Ox O2 Del Method 97.9 F 76 16 164/55 H 93 Room Air 06/15/25 14:40 06/15/25 14:40 06/15/25 14:40 06/15/25 14:40 06/15/25 14:40 06/15/25 14:40 Oxygen Delivery Method Room Air Weight: 161 lb 6.054 oz Body Mass Index (BMI) 29.7 Intake & Output: Intake and Output for Last 24 Hours 06/14/25 06/15/25 06/16/25 03:59 03:59 03:59 Intake Total 3756.25 / 3756.25 1433.33 / 1433.33 Balance 3756.25 / 3756.25 1433.33 / 1433.33 Lab / Micro Data 06/15/25 06:16 06/15/25 06:16 Labs: Laboratory Results - last 24 hr 06/14/25 20:38: POC Glucose 162 H 06/15/25 06:16: WBC 10.0, RBC 3.04 L, Hgb 9.0 L, Hct 28.1 L, MCV 92.4, MCH 29.6, MCHC 32.0, RDW Std Deviation 48.2 H, RDW Coeff of Hernan 14.3, Plt Count 297, MPV 11.0, Immature Gran % (Auto) 0.400, Neut % (Auto) 74.8 H, Lymph % (Auto) 19.5, [place] % (Auto) 4.8, Eos % (Auto) 0.0, Baso % (Auto) 0.5, Absolute Neuts (auto) 7.5, Absolute Lymphs (auto) 1.95, Nucleated RBC % 0, Sodium 137, Potassium 5.2 H, Chloride 109 H, Carbon Dioxide 16.4 L, Anion Gap 12, BUN 47 H, Creatinine 2.16 H, Estim Creat Clear Calc 16.86 L, Est GFR (MDRD) Non-Af 22 L, BUN/Creatinine Ratio 21.6 H, Glucose 182 H, Hemoglobin A1c 7.2 H, Calcium 8.5, Phosphorus 3.7, Magnesium 2.2 06/15/25 06:45: POC Glucose 183 H 06/15/25 11:18: POC Glucose 176 H 06/15/25 16:20: POC Glucose 176 H Radiography Diagnostic Testing: Radiology Impression Renal Ultrasound 06/15/25 06:30 IMPRESSION: NORMAL RENAL ULTRASOUND. Reading Location: [place] [address] Rhythm Strip Rhythm Strip: Sinus Rhythm Rate: 72 Ectopy: None Physical Exam Narrative General: Alert, Oriented x3, Cooperative, No apparent distress HEENT: Atraumatic, PERRLA, EOMI, Normocephalic Oral: Moist Mucosa Neck: Supple, No JVD Lungs: Diminished, Normal air movement, No rhonchi, No wheeze, No rales Cardiovascular: Regular rate, Regular Rhythm, Normal S1, Normal S2, No murmurs Abdomen: Soft, Non Tender, Non-Distended, No Hepato-splenomegaly Extremities: No edema, Capillary Refill Less than 3 Seconds Skin: No rashes, No breakdown Musculoskeletal: No Tenderness to Palpation of Joints or Extremities Neurological: No focal neurological deficits, Motor Exam 5/5 strength throughout, Sensory exam intact to light touch and pain Psych/Mental Status: Normal Affect, Appropriate Assessment & Plan Assessment/Plan (1) SHA (acute kidney injury): PLAN: Plan 1. SHA with hyperkalemia due to dehydration poor oral intake in the setting of a recent UTI with antibiotics ? Unclear whether or not this has any intrinsic renal component from antibiotics, she discontinued these on ? She has admitted to having poor p.o. intake and does not like to drink water ? She has had improvement with IV fluids ? Will recheck BMP in the morning ? UA was negative, no UTI ? Will recheck potassium in the morning, bicarb is also low but this is likely anomalous due to wire testing machines 2. Essential HTN/HLD/CAD status post CABG/history of CVA ? Blood pressure stable ? Can resume her home blood pressure medications except for losartan pending renal function improvement ? Continue with Crestor As she had a previous basal ganglia infarction, continue with goal-directed therapy 3. DM2 ? Continue with insulin ? Accu-Cheks ACHS ? Will monitor make adjustments as necessary 4. Normocytic normochromic anemia ? Hemoglobin is 9, after 2.5 l of IV fluids ? Will check iron studies DVT: Heparin Charges/Coding Visit Charges Inpatient E&M: 83836 Subs Hosp L2
[2025-06-15 17:42] LABS: Ferritin 153 ng/mL (22-378); Iron 21 ug/dL (50-170); Iron Binding Capacity,Total 290 ug/dL (250-450); Iron Binding Capacity,Unsat 269 ug/dL (228-428)
[2025-06-15] MEDS: Metoprolol(XL)Succ 100 MG Tablet PO (18:25)
[2025-06-16] VITALS (7 sets, daily range): BP systolic 129–173; BP diastolic 59–68; PULSE 71–75; RESP 16–24; TEMP 36.5–36.9; O2SAT 88–93
[2025-06-16 06:01] LABS: Hematocrit 28.7 % (37-47); Hemoglobin 9.3 g/dL (12.0-15.0); Immature Granulocytes Count 0.020 X10^3/uL (0.0-0.0); Mean Corp Hgb Conc 32.4 g/dL (32-36); Mean Corpuscular Volume 92.0 fL (81-99); Mean Platelet Vol. 10.8 fl (6.2-12.0); NRBC Flagged by Analyzer 0 % (0-5); Platelet Count 268 K/mm3 (150-450); RBC Distribution Width CV 14.6 % (11.6-14.6); RBC Distribution Width SD 48.9 fl (35.1-43.9); Red Blood Count 3.12 M/mm3 (4.2-5.4); White Blood Count 9.0 K/mm3 (4.4-11.0)
[2025-06-16 06:22] LABS: Anion Gap 12 (5-15); BUN 48 mg/dL (4-19); BUN/Creat Ratio 21.0 RATIO (10-20); Calcium,Total 8.9 mg/dL (7.6-11.0); Carbon Dioxide 15.7 mmol/L (21.0-32.0); Chloride 106 mmol/L (98-108); Estimated Creatinine Clearance 15.91 ml/min (50-250); Glucose 149 mg/dL (70-99); Potassium 5.1 mmol/L (3.3-5.1)
--- NOTE | 2025-06-16 06:59 | NURSING ---
Per the TRAPPER ANIMAL the patient refused to get in the bed to get her daily weight.
[2025-06-16] MEDS: 0.9% Normal Saline (1000mL) 1,000 ML 100 ML IV (09:15)
[2025-06-16] MEDS: Metoprolol(XL)Succ 100 MG Tablet PO (09:23)
[2025-06-16] MEDS: Heparin Injection (Vial) 5,000 UNIT/ML VIAL 5000 UNIT SC ×2 (09:25→22:29)
--- NOTE | 2025-06-16 11:46 | PN.HOSP_ITS ---
Subjective Subjective Renal function worsened overnight, her IV had fallen out yesterday so I elected to try to encourage her to drink liquids which she did not do successfully Objective Data Objective Data Vital Signs: Vital Signs Temp Pulse Resp BP Pulse Ox O2 Del Method 97.7 F L 74 16 166/63 H 93 Room Air 06/16/25 04:24 06/16/25 09:23 06/16/25 04:24 06/16/25 09:23 06/16/25 04:24 06/16/25 04:24 Oxygen Delivery Method Room Air Weight: 161 lb 6.054 oz Body Mass Index (BMI) 29.7 Intake & Output: Intake and Output for Last 24 Hours 06/15/25 06/16/25 06/17/25 03:59 03:59 03:59 Intake Total 3756.25 / 3756.25 1833.33 / 1833.33 Balance 3756.25 / 3756.25 1833.33 / 1833.33 Lab / Micro Data 06/16/25 05:08 06/16/25 05:08 Labs: Laboratory Results - last 24 hr 06/15/25 06:16: Iron 21 L, TIBC 290, Iron Saturation 7.0 L, Unsaturated IBC 269, Ferritin 153 06/15/25 16:20: POC Glucose 176 H 06/15/25 21:57: POC Glucose 295 H 06/16/25 05:08: WBC 9.0, RBC 3.12 L, Hgb 9.3 L, Hct 28.7 L, MCV 92.0, MCH 29.8, MCHC 32.4, RDW Std Deviation 48.9 H, RDW Coeff of Hernan 14.6, Plt Count 268, MPV 10.8, Immature Gran % (Auto) 0.200, Neut % (Auto) 68.7, Lymph % (Auto) 22.7, [place] % (Auto) 8.0, Eos % (Auto) 0.1, Baso % (Auto) 0.3, Absolute Neuts (auto) 6.2, Absolute Lymphs (auto) 2.04, Nucleated RBC % 0, Sodium 133, Potassium 5.1, Chloride 106, Carbon Dioxide 15.7 L, Anion Gap 12, BUN 48 H, Creatinine 2.29 H, Estim Creat Clear Calc 15.91 L, Est GFR (MDRD) Non-Af 20 L, BUN/Creatinine Ratio 21.0 H, Glucose 149 H, Calcium 8.9 06/16/25 06:49: POC Glucose 140 H Rhythm Strip Rhythm Strip: Sinus Rhythm Rate: 72 Ectopy: None Physical Exam Narrative General: Alert, Oriented x3, Cooperative, No apparent distress HEENT: Atraumatic, PERRLA, EOMI, Normocephalic Oral: Moist Mucosa Neck: Supple, No JVD Lungs: Diminished, Normal air movement, No rhonchi, No wheeze, No rales Cardiovascular: Regular rate, Regular Rhythm, Normal S1, Normal S2, No murmurs Abdomen: Soft, Non Tender, Non-Distended, No Hepato-splenomegaly Extremities: No edema, Capillary Refill Less than 3 Seconds Skin: No rashes, No breakdown Musculoskeletal: No Tenderness to Palpation of Joints or Extremities Neurological: No focal neurological deficits, Motor Exam 5/5 strength throughout, Sensory exam intact to light touch and pain Psych/Mental Status: Normal Affect, Appropriate Assessment & Plan Assessment/Plan (1) SHA (acute kidney injury): PLAN: Plan 1. SHA with hyperkalemia due to dehydration poor oral intake in the setting of a recent UTI with antibiotics ? Unclear whether or not this has any intrinsic renal component from antibiotics, she discontinued these on ? She has admitted to having poor p.o. intake and does not like to drink water ? She has had improvement with IV fluids though her kidney function got worse yesterday with just oral intake therefore will reinsert an IV and continue with IV fluids ? UA was negative, no UTI ? Hyperkalemia has resolved 2. Essential HTN/HLD/CAD status post CABG/history of CVA ? Blood pressure stable ? Can resume her home blood pressure medications except for losartan pending renal function improvement ? Continue with Crestor ?She had a previous basal ganglia infarction, continue with goal-directed therapy 3. DM2 with CKD 3 ? Continue with insulin ? Accu-Cheks ACHS ? Will monitor make adjustments as necessary 4. Normocytic normochromic anemia ? Hemoglobin is 9, after 2.5 l of IV fluids ? Iron studies demonstrated anemia of chronic disease pattern given her chronic kidney disease DVT: Heparin Charges/Coding Visit Charges Inpatient E&M: 54086 Subs Hosp L2
[2025-06-16] MEDS: 0.9% Saline Lock 10 ML Syringe IV (12:51)
--- NOTE | 2025-06-16 14:56 | CHAPLAIN ---
Type of Pastoral Visit ___ Initial Visit _x__ Follow-up Visit ___ On-call Visit ___ General Patient Visit ___ Spiritual Assessment ___ Family Conference ___ Bereavement ___ Rapid Response ___ Code Blue ___ Other (describe below) Pastoral Care Referral From _x__ Patient ___ Family ___ Nurse ___ Physician ___ Lieutenant Ballistics ___ Systems Development Consultant ___ Other (describe below) Sacrament/Intervention _x__ Active listening ___ Anointing ___ Mosque ___ Bereavement ___ Communion ___ Lelo exploration ___ ___ Life review ___ Prayer ___ Reconciliation ___ Sacrament of Sick _x__ Supportive presence ___ Wedding ___ Other (describe below) Pastoral Comments follow up visit to this patient who admits disappointment at not being able to be discharged yet; pt has a sister in the room that is supportive; pt says that she will have to accept the facts but has hope for tomorrow; pt denies further needs but expresses thanks for the concern and follow up
--- NOTE | 2025-06-16 19:12 | RAD_ITS ---
PROCEDURE: CHEST 1 VIEW (PORTABLE) 06/16/2025 REASON FOR EXAM: SHORTNESS OF BREATH AND WHEEZING. TECHNIQUE: Frontal view of the chest. COMPARISON: 06/14/2025. FINDINGS: [id number]-left basilar consolidative opacities in a pattern favoring edema. Infection is possible. The heart is enlarged. Prior sternotomy. RAD/Chest 1 View (Portable) IMPRESSION: Probable worsening edema in the setting of cardiomegaly. Infection is possible . Correlate with fever status. Reading Location: [id number]
--- NOTE | 2025-06-16 19:27 | ECHOL_ITS ---
Reason For Study Reason For Study: DYSPNEA Procedure This was a limited 2D transthoracic echocardiogram. Exam performed portable in patient room. Left Ventricle Normal LV size. Mild eccentric left ventricular hypertrophy. The estimated ejection fraction is 55 %. Left ventricular systolic function is normal. Stage 2 diastolic dysfunction. E/E' ratio is 26.1. Right Ventricle Normal right ventricle. Normal systolic function. Atria The left atrium is mildly enlarged. Mitral Valve The mitral valve is structurally normal. No prolapse or stenosis seen. Moderate (2+) eccentric mitral valve insufficiency. Tricuspid Valve Mild to moderate (1-2+) tricuspid valve insufficiency. Pulmonary artery systolic pressure is 36 mmHg. Aortic Valve Trisinus/trileaflet aortic valve. Mild focal aortic valve thickening. There is no aortic stenosis. Pulmonic Valve Trivial pulmonic valve insufficiency. Great Vessels The aortic root is not well visualized. Normal inferior vena cava. Pericardium/Pleural No pericardial effusion. MMode/2D Measurements & Calculations LVIDd: 4.7 cm IVSd: 1.1 cm LAV(MOD- bp): 45.4 ml LVIDs: 3.2 cm LVPWd: 1.00 cm LAV(MOD- bp) Indexed: 26.1 ml/m2 RVDd: 3.9 cm FS: 31.8 % LAV(MOD- sp2): 44.4 ml LAV(MOD- sp4): 44.9 ml SV(MOD- sp4): 27.1 ml LVAd ap4: 18.5 cm2 LVAd ap2: 18.0 cm2 LVLd ap4: 6.0 cm LVLd ap2: 6.3 cm SI(MOD- sp4): 15.5 ml/m2 EDV(MOD-sp4): 46.8 ml EDV(MOD-sp2): 45.5 ml EDV(sp4-el): 48.5 ml EDV(sp2-el): 43.9 ml LVAs ap4: 11.4 cm2 LVAs ap2: 11.7 cm2 LVLs ap4: 5.7 cm LVLs ap2: 5.8 cm ESV(MOD-sp4): 19.7 ml ESV(MOD-sp2): 21.2 ml ESV(sp4-el): 19.2 ml ESV(sp2-el): 20.1 ml EF(MOD-sp4): 57.8 % EF(MOD-sp2): 53.4 % EF(sp4-el): 60.4 % SV(MOD-sp2): 24.3 ml SV(sp4-el): 29.3 ml Ao sinus diam: 2.8 cm SI(MOD-sp2): 14.0 ml/m2 LA dimension(2D): 4.1 cm LA A4 area: 17.3 cm2 RA A4 area: 9.8 cm2 TAPSE: 1.1 cm Time Measurements MV dec time: 0.16 sec Doppler Measurements & Calculations MV E max kyaw: 133.2 cm/sec Lat Peak E' Kyaw: 7.2 cm/sec Med Peak E' Kyaw: 5.1 cm/sec MV A max kyaw: 74.9 cm/sec E/E' lat: 18.6 E/E' med: 26.1 MV E/A: 1.8 MV dec slope: 831.8 cm/sec2 Ao V2 max: 135.2 cm/sec LV V1 max: 104.5 cm/sec Ao max P.3 mmHg LV V1 max P.4 mmHg TR max kyaw: 371.5 cm/sec TR max P.2 mmHg ECHO/Echo, Limited Study Interpretation Summary Normal LV size. Mild eccentric left ventricular hypertrophy. The estimated ejection fraction is 55 %. Left ventricular systolic function is normal. Moderate (2+) eccentric mitral valve insufficiency. Mild to moderate (1-2+) tricuspid valve insufficiency. Pulmonary artery systolic pressure is 36 mmHg. Stage 2 diastolic dysfunction. Ordering Physician: Jack Mae Referring Physician: ANJU PEARCE Performed By: Therese Adams RDCS
--- NOTE | 2025-06-16 19:27 | PCM.PN.BLA ---
Progress Note Notified that she was having increased work of breathing and shortness of breath. IV fluids were discontinued she was placed on 2 to 3 L nasal cannula which she is tolerating very well. Some concern about anemia being the cause however anemia and iron deficiency do not cause acute shortness of breath, based on her iron studies she likely has anemia of chronic disease related to her chronic kidney disease. She does have a history of stage II diastolic dysfunction with a normal EF on an echo back in October 2024, will repeat a limited echo tomorrow morning. She does have some lower extremity edema and fine crackles in her bases. She does need to ambulate more as her could also be a component of atelectasis. Chest x-ray on my read shows maybe some mild pulmonary edema but nothing overtly concerning. Will hold off of Lasix tonight given her acute kidney injury and encourage ambulation and incentive spirometry
[2025-06-17] VITALS (7 sets, daily range): BP systolic 149–155; BP diastolic 54–62; PULSE 70–81; RESP 15–19; TEMP 36.5–37.1; O2SAT 88–99
[2025-06-17 06:45] LABS: Hematocrit 28.2 % (37-47); Hemoglobin 9.3 g/dL (12.0-15.0); Immature Granulocytes Count 0.040 X10^3/uL (0.0-0.0); Mean Corp Hgb Conc 33.0 g/dL (32-36); Mean Corpuscular Volume 92.2 fL (81-99); Mean Platelet Vol. 11.2 fl (6.2-12.0); NRBC Flagged by Analyzer 0 % (0-5); Platelet Count 271 K/mm3 (150-450); RBC Distribution Width CV 14.5 % (11.6-14.6); RBC Distribution Width SD 49.0 fl (35.1-43.9); Red Blood Count 3.06 M/mm3 (4.2-5.4); White Blood Count 9.7 K/mm3 (4.4-11.0)
[2025-06-17 07:04] LABS: Anion Gap 13 (5-15); BUN 56 mg/dL (4-19); BUN/Creat Ratio 23.6 RATIO (10-20); Calcium,Total 9.1 mg/dL (7.6-11.0); Carbon Dioxide 15.0 mmol/L (21.0-32.0); Chloride 107 mmol/L (98-108); Estimated Creatinine Clearance 15.37 ml/min (50-250); Glucose 159 mg/dL (70-99); Potassium 5.2 mmol/L (3.3-5.1)
--- NOTE | 2025-06-17 09:47 | PCM.PN.HOSP ---
Subjective Subjective Oxygen requirements are improving however her renal functions gotten worse. Continue lower extremity edema and basilar crackles so we will trial her on a dose of Lasix today pending echocardiogram Objective Data Objective Data Vital Signs: Vital Signs Temp Pulse Resp BP Pulse Ox O2 Del Method O2 Flow Rate 98.8 F 70 18 155/58 H 92 Nasal Cannula 2 06/17/25 08:27 06/17/25 08:27 06/17/25 08:27 06/17/25 08:27 06/17/25 08:27 06/17/25 08:27 06/17/25 08:27 Oxygen Flow Rate (L/min) 2 Oxygen Delivery Method Nasal Cannula Weight: 161 lb 6.054 oz Body Mass Index (BMI) 29.7 Intake & Output: Intake and Output for Last 24 Hours 06/16/25 06/17/25 06/18/25 03:59 03:59 03:59 Intake Total 1833.33 / 1833.33 2258.33 / 2258.33 500 / 500 Balance 1833.33 / 1833.33 2258.33 / 2258.33 500 / 500 Lab / Micro Data 06/17/25 06:22 06/17/25 06:22 Labs: Laboratory Results - last 24 hr 06/16/25 12:06: POC Glucose 209 H 06/16/25 16:17: POC Glucose 155 H 06/16/25 22:32: POC Glucose 198 H 06/17/25 06:22: WBC 9.7, RBC 3.06 L, Hgb 9.3 L, Hct 28.2 L, MCV 92.2, MCH 30.4, MCHC 33.0, RDW Std Deviation 49.0 H, RDW Coeff of Hernan 14.5, Plt Count 271, MPV 11.2, Immature Gran % (Auto) 0.400, Neut % (Auto) 66.2, Lymph % (Auto) 25.2, [place] % (Auto) 7.5, Eos % (Auto) 0.3, Baso % (Auto) 0.4, Absolute Neuts (auto) 6.4, Absolute Lymphs (auto) 2.44, Nucleated RBC % 0, Sodium 134, Potassium 5.2 H, Chloride 107, Carbon Dioxide 15.0 L, Anion Gap 13, BUN 56 H, Creatinine 2.37 H, Estim Creat Clear Calc 15.37 L, Est GFR (MDRD) Non-Af 19 L, BUN/Creatinine Ratio 23.6 H, Glucose 159 H, Calcium 9.1 06/17/25 06:37: POC Glucose 164 H Radiography Diagnostic Testing: Radiology Impression Chest X-Ray 06/16/25 19:12 IMPRESSION: Probable worsening edema in the setting of cardiomegaly. Infection is possible. Correlate with fever status. Reading Location: [facility] Rhythm Strip Rhythm Strip: Sinus Rhythm Rate: 72 Ectopy: None Physical Exam Narrative General: Alert, Oriented x3, Cooperative, No apparent distress HEENT: Atraumatic, PERRLA, EOMI, Normocephalic Oral: Moist Mucosa Neck: Supple, No JVD Lungs: Diminished, Normal air movement, bibasilar crackles, No wheeze, No rales Cardiovascular: Regular rate, Regular Rhythm, Normal S1, Normal S2, No murmurs Abdomen: Soft, Non Tender, Non-Distended, No Hepato-splenomegaly Extremities: Edema, Capillary Refill Less than 3 Seconds Skin: No rashes, No breakdown Musculoskeletal: No Tenderness to Palpation of Joints or Extremities Neurological: No focal neurological deficits, Motor Exam 5/5 strength throughout, Sensory exam intact to light touch and pain Psych/Mental Status: Normal Affect, Appropriate Assessment & Plan Assessment/Plan (1) SHA (acute kidney injury): PLAN: Plan 1. SHA with hyperkalemia due to dehydration poor oral intake in the setting of a recent UTI with antibiotics ? Unclear whether or not this has any intrinsic renal component from antibiotics, she discontinued these on ? She has admitted to having poor p.o. intake and does not like to drink water ?Renal functions got worse and she became short of breath last night echo is pending we will trial her on a dose of Lasix and monitor her renal function ? UA was negative, no UTI ? Hyperkalemia has resolved 2. Essential HTN/HLD/CAD status post CABG/history of CVA ? Blood pressure stable ? Can resume her home blood pressure medications except for losartan pending renal function improvement ? Continue with Crestor ?She had a previous basal ganglia infarction, continue with goal-directed therapy ? Echo pending, previous echo in October with stage II diastolic dysfunction and normal EF 3. DM2 with CKD 3 ? Continue with insulin ? Accu-Cheks ACHS ? Will monitor make adjustments as necessary 4. Normocytic normochromic anemia ? Hemoglobin is 9, after 2.5 l of IV fluids ? Iron studies demonstrated anemia of chronic disease pattern given her chronic kidney disease DVT: Heparin Charges/Coding Visit Charges Inpatient E&M: 40639 Subs Hosp L2
[2025-06-17] MEDS: Furosemide 20 MG/2 ML VIAL IV (10:47)
[2025-06-17] MEDS: Metoprolol(XL)Succ 100 MG Tablet PO (10:47)
[2025-06-17] MEDS: Heparin Injection (Vial) 5,000 UNIT/ML VIAL 5000 UNIT SC ×2 (10:48→21:14)
[2025-06-17] MEDS: 0.9% Saline Lock 10 ML Syringe IV (10:49)
--- NOTE | 2025-06-17 11:05 | CASEMGMT ---
RITA PEREZ into pt room, discussed dc planning with pt. Pt states she is interested in therapy once dc'd for strength. Pt reports she is not homebound and goes to town often. Pt is agreeeable to outpt therapy at [facility] as she states she already has a membership there. Offered to set this up for pt and pt states she prefers to do this on her own. She is aware that RITA PEREZ will then provide her with the rx once it is signed. Pt denies any further homegoing needs at this time.
[2025-06-18 05:00] VITALS: BP 145/56; PULSE 78; RESP 16; TEMP 36.6; O2SAT 94
[2025-06-18] MEDS: 0.9% Saline Lock 10 ML Syringe IV ×2 (06:20→10:28)
[2025-06-18 06:52] LABS: Hematocrit 25.9 % (37-47); Hemoglobin 8.4 g/dL (12.0-15.0); Immature Granulocytes Count 0.030 X10^3/uL (0.0-0.0); Mean Corp Hgb Conc 32.4 g/dL (32-36); Mean Corpuscular Volume 91.8 fL (81-99); Mean Platelet Vol. 11.4 fl (6.2-12.0); NRBC Flagged by Analyzer 0 % (0-5); Platelet Count 226 K/mm3 (150-450); RBC Distribution Width CV 14.2 % (11.6-14.6); RBC Distribution Width SD 47.9 fl (35.1-43.9); Red Blood Count 2.82 M/mm3 (4.2-5.4); White Blood Count 8.7 K/mm3 (4.4-11.0)
[2025-06-18 07:00] VITALS: BP 153/51; PULSE 73; RESP 16; TEMP 36.3; O2SAT 95
[2025-06-18 07:29] LABS: Anion Gap 13 (5-15); BUN 61 mg/dL (4-19); BUN/Creat Ratio 25.0 RATIO (10-20); Calcium,Total 8.9 mg/dL (7.6-11.0); Carbon Dioxide 15.6 mmol/L (21.0-32.0); Chloride 106 mmol/L (98-108); Estimated Creatinine Clearance 15.05 ml/min (50-250); Glucose 208 mg/dL (70-99); Potassium 5.0 mmol/L (3.3-5.1)
[2025-06-18] MEDS: Sodium Ferric Gluconat/Sucrose 250 MG in 0.9% Normal Saline (250mL Bag) 250 ML 135 MG IV (10:04)
[2025-06-18 10:05] VITALS: BP 153/51; PULSE 73
[2025-06-18] MEDS: Metoprolol(XL)Succ 100 MG Tablet PO (10:05)
[2025-06-18] MEDS: Heparin Injection (Vial) 5,000 UNIT/ML VIAL 5000 UNIT SC ×2 (10:22→22:04)
--- NOTE | 2025-06-18 11:39 | CASEMGMT ---
RN CM into pt room, pt provided with outpt therapy rx. Pt denies any need for assistance in setting this up. Pt states she will call [facility] when she is ready to do so. Pt appreciative of rx.
--- NOTE | 2025-06-18 11:40 | PCM.PN.HOSP ---
Subjective Subjective Feels that she might be breathing a little bit better denies any bloody stools however hemoglobin is dropped to 8.4 Objective Data Objective Data Vital Signs: Vital Signs Temp Pulse Resp BP Pulse Ox O2 Del Method O2 Flow Rate 98 F 73 16 153/51 H 94 Nasal Cannula 2 06/18/25 05:00 06/18/25 10:05 06/18/25 05:00 06/18/25 10:05 06/18/25 05:00 06/18/25 05:00 06/18/25 05:00 Oxygen Flow Rate (L/min) 2 Oxygen Delivery Method Nasal Cannula Weight: 161 lb 6.054 oz Body Mass Index (BMI) 29.7 Intake & Output: Intake and Output for Last 24 Hours 06/17/25 06/18/25 06/19/25 03:59 03:59 03:59 Intake Total 2258.33 / 2258.33 1150 / 1150 500 / 500 Balance 2258.33 / 2258.33 1150 / 1150 500 / 500 Lab / Micro Data 06/18/25 06:13 06/18/25 06:13 Labs: Laboratory Results - last 24 hr 06/17/25 16:25: POC Glucose 215 H 06/17/25 21:13: POC Glucose 196 H 06/18/25 04:59: POC Glucose 174 H 06/18/25 06:13: WBC 8.7, RBC 2.82 L, Hgb 8.4 L, Hct 25.9 L, MCV 91.8, MCH 29.8, MCHC 32.4, RDW Std Deviation 47.9 H, RDW Coeff of Hernan 14.2, Plt Count 226, MPV 11.4, Immature Gran % (Auto) 0.300, Neut % (Auto) 70.8 H, Lymph % (Auto) 19.4, [place] % (Auto) 8.3, Eos % (Auto) 0.7, Baso % (Auto) 0.5, Absolute Neuts (auto) 6.1, Absolute Lymphs (auto) 1.68, Nucleated RBC % 0, Sodium 135, Potassium 5.0, Chloride 106, Carbon Dioxide 15.6 L, Anion Gap 13, BUN 61 H, Creatinine 2.42 H, Estim Creat Clear Calc 15.05 L, Est GFR (MDRD) Non-Af 19 L, BUN/Creatinine Ratio 25.0 H, Glucose 208 H, Calcium 8.9 06/18/25 06:17: POC Glucose 205 H Rhythm Strip Rhythm Strip: Sinus Rhythm Rate: 72 Ectopy: None Physical Exam Narrative General: Alert, Oriented x3, Cooperative, No apparent distress HEENT: Atraumatic, PERRLA, EOMI, Normocephalic Oral: Moist Mucosa Neck: Supple, No JVD Lungs: Diminished, Normal air movement, bibasilar crackles, No wheeze, No rales Cardiovascular: Regular rate, Regular Rhythm, Normal S1, Normal S2, No murmurs Abdomen: Soft, Non Tender, Non-Distended, No Hepato-splenomegaly Extremities: Edema, Capillary Refill Less than 3 Seconds Skin: No rashes, No breakdown Musculoskeletal: No Tenderness to Palpation of Joints or Extremities Neurological: No focal neurological deficits, Motor Exam 5/5 strength throughout, Sensory exam intact to light touch and pain Psych/Mental Status: Normal Affect, Appropriate Assessment & Plan Assessment/Plan (1) SHA (acute kidney injury): PLAN: Plan 1. SHA with hyperkalemia due to dehydration, recent UTI with antibiotics ? Unclear whether or not this has any intrinsic renal component from antibiotics, she discontinued these on ? She has admitted to having poor p.o. intake and does not like to drink water ?Renal functions got worse and she became short of breath ? Renal ultrasound is unremarkable, will obtain urine electrolytes and consult nephrology ? UA was negative, no UTI ? Hyperkalemia has resolved 2. Acute on chronic diastolic CHF/essential HTN/HLD/CAD status post CABG/history of CVA ? Blood pressure stable ? Can resume her home blood pressure medications except for losartan pending renal function improvement ? Continue with Crestor ?She had a previous basal ganglia infarction, continue with goal-directed therapy ? Echo 06/16/2025 with an EF of 55% stage II diastolic dysfunction with a PASP of 36 mmHg, will continue with Lasix as I believe her shortness of breath is related to pulmonary edema from a heart failure exacerbation. ? Repeat BMP in the morning 3. DM2 with CKD 3 ? Continue with insulin ? Accu-Cheks ACHS ? Will monitor make adjustments as necessary 4. Normocytic normochromic anemia ? Hemoglobin is 9, after 2.5 l of IV fluids ? Iron studies demonstrated anemia of chronic disease pattern given her chronic kidney disease DVT: Heparin Charges/Coding Visit Charges Inpatient E&M: 76038 Subs Hosp L2
--- NOTE | 2025-06-18 14:20 | PCM.CONS.R ---
Assessment & Plan Assessment/Plan (1) SHA (acute kidney injury): (2) CKD (chronic kidney disease) stage 4, GFR 15-29 ml/min: PLAN: Plan This is a pleasant 89-year-old female with past medical history significant for diabetes mellitus type 2 (last A1c 7.2%), coronary disease status post CABG, hypertension who was admitted to the hospital after presenting with weakness. Serum creatinine on admission 2.4. Patient was started on IV fluids and next day creatinine improved to 2.1. Patient developed difficulty breathing with some lower extremity edema she was given Lasix yesterday and again today. Her creatinine is 2.4 mg/dL today. Patient reports since receiving Lasix breathing has improved swelling has improved and she is noted urinating often. Echo from this admission EF 55%, mild left ventricular hypertrophy, stage II diastolic dysfunction. Reviewing past serum creatinine trends in September 2024 serum creatinine 2.2. January 05, 2025 serum creatinine 1.95. May 2025 serum creatinine 2.2. UA showed 500 protein, 100 glucose, negative for bacteria. Patient likely has CKD stage IV with baseline creatinine low 2 range possibly related to diabetes mellitus. Will obtain urine protein creatinine ratio. Renal ultrasound normal kidney size, no hydronephrosis. There is no acute indication for renal placement therapy; patient is nonoliguric, potassium and acid-base acceptable and volume status appears compensated. Likely fluctuation in serum creatinine from hemodynamics. No recent ISABELLA, ARB or NSAIDs. Patient does not need any IV fluids. Labs ordered for a.m. Encouraged patient to try and increase fluid and solute intake. At time of hospitalization we will arrange follow-up in our [place] office. Further orders forthcoming as hospitalization evolves, thank you for allowing us to participate in the care of Ms. Sosa. Assessment and plan reviewed with Dr. Phillips. HPI Consult Data Date of Consult: 06/18/25 HPI Narrative HPI Narrative: CONCHA SOSA, is a 89 F who presented to the ER on June 15 with complaints of feeling weak. Patient had been recently treated for acute cystitis, stated felt better after taking antibiotics but then developed poor oral intake with weakness. Patient was admitted for further evaluation and treatment. Patient has history of diabetes mellitus type 2, hypertension, coronary artery disease status post CABG. Nephrology consulted in view of elevated creatinine. 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 Reviewing past lab work patient has had elevated creatinine dating back to at least 2017. Patient denies any recent NSAIDs. No vomiting. No diarrhea. States appetite is still poor. [facility] Medical History (Updated 06/18/25 @ 14:26 by PATI Denis) Kidney disease Stroke/cerebrovascular accident Atherosclerosis of coronary artery of [place] heart without angina pectoris Bilateral renal cysts STEMI (ST elevation myocardial infarction) Acute renal failure superimposed on stage 3 chronic kidney disease Paroxysmal atrial fibrillation with RVR Carotid stenosis, right Decubitus ulcer, stage II Thrombocytopenia Acute blood loss anemia Chronic renal failure, stage 3 (moderate) Benign paroxysmal positional vertigo Mild atrial enlargement, left Nonrheumatic mitral valve regurgitation Internal hemorrhoids Diverticulosis Ischemic cardiomyopathy Hypertension Diabetes Physical debility Constipation due to pain medication Gout Basal ganglia infarction Intracranial meningioma Type II diabetes mellitus Benign hypertension Home Medications ?Medication ?Instructions ?Recorded ?Last Taken ?Type allopurinol 100 mg tablet 100 mg PO DAILYCM gout 04/28/14 01/03/20 History aspirin 81 mg chewable tablet 81 mg PO DAILY heart 01/17/20 Unknown History calcium carbonate-vitamin D3 600 1 ea PO DAILY bones 01/17/20 Unknown History mg-125 unit tablet metoprolol succinate 100 mg 100 mg PO DAILY bp 01/17/20 Unknown History tablet,extended release 24 hr propylene glycol 0.6 % eye drops 1 drp ophthalmic (eye) QHS Dry Eyes 06/28/20 Unknown History (Systane Balance) losartan 50 mg tablet 50 mg PO QDAY 09/22/24 Unknown History amlodipine 10 mg tablet 10 mg PO QDAY 04/30/25 Unknown History insulin aspart U-100 100 unit/mL 7 unit subcut QAC dm 04/30/25 Unknown History (3 mL) subcutaneous pen rosuvastatin 5 mg tablet 5 mg PO QDAY 04/30/25 Unknown History insulin glargine-yfgn 100 unit/mL 14 unit subcut QHS 06/14/25 Unknown History (3 mL) subcutaneous pen Allergy/AdvReac Type Severity Reaction Status Date / Time codeine AdvReac Nausea/Vom/ Verified 04/30/25 15:26 Diarrhea morphine AdvReac Nausea/Vom/ Verified 04/30/25 15:26 Diarrhea Family History Aunt Breast cancer Mother Heart disease Father Heart disease Surgical History History of cholecystectomy History of coronary artery bypass graft H/O angioplasty History of left heart catheterization tubal Social History number of children: 2 current occupational status: retired Smoking Status: Former smoker alcohol intake: never substance use type: does not use diet: diabetic caffeine: Yes Type: coffee Number of servings: 1 seatbelt use: always do you feel safe at home: Yes additional social history: 2 children adopted ROS ROS Narrative As in HPI Physical Exam Narrative Alert and oriented x 3, no apparent distress S1, S2, RRR Lungs sound clear anteriorly and posteriorly. No wheezes rhonchi or rales. On room air Abdomen soft, rounded Trace edema bilateral lower legs and feet Lab / Micro Data 06/18/25 06:13 06/18/25 06:13 Labs: Laboratory Results - last 24 hr 06/17/25 16:25: POC Glucose 215 H 06/17/25 21:13: POC Glucose 196 H 06/18/25 04:59: POC Glucose 174 H 06/18/25 06:13: WBC 8.7, RBC 2.82 L, Hgb 8.4 L, Hct 25.9 L, MCV 91.8, MCH 29.8, MCHC 32.4, RDW Std Deviation 47.9 H, RDW Coeff of Hernan 14.2, Plt Count 226, MPV 11.4, Immature Gran % (Auto) 0.300, Neut % (Auto) 70.8 H, Lymph % (Auto) 19.4, [place] % (Auto) 8.3, Eos % (Auto) 0.7, Baso % (Auto) 0.5, Absolute Neuts (auto) 6.1, Absolute Lymphs (auto) 1.68, Nucleated RBC % 0, Sodium 135, Potassium 5.0, Chloride 106, Carbon Dioxide 15.6 L, Anion Gap 13, BUN 61 H, Creatinine 2.42 H, Estim Creat Clear Calc 15.05 L, Est GFR (MDRD) Non-Af 19 L, BUN/Creatinine Ratio 25.0 H, Glucose 208 H, Calcium 8.9 06/18/25 06:17: POC Glucose 205 H 06/18/25 11:13: Ur Random Sodium 88, Urine Potassium 19.1, Urine Chloride 90 Micro: Microbiology 06/18/25 10:00 Stool Stool Occult Blood (ROSARIO) - Final Occult Blood Positive Rhythm Strip Rhythm Strip: Sinus Rhythm Rate: 72 Ectopy: None
--- NOTE | 2025-06-18 14:48 | CHAPLAIN ---
Type of Pastoral Visit ___ Initial Visit _x__ Follow-up Visit ___ On-call Visit ___ General Patient Visit ___ Spiritual Assessment ___ Family Conference ___ Bereavement ___ Rapid Response ___ Code Blue ___ Other (describe below) Pastoral Care Referral From _x__ Patient ___ Family ___ Nurse ___ Physician ___ Quality System Manager ___ Pump Erector Helper ___ Other (describe below) Sacrament/Intervention _x__ Active listening ___ Anointing ___ Restorationism ___ Bereavement ___ Communion _x__ Lelo exploration ___ _x__ Life review _x__ Prayer ___ Reconciliation ___ Sacrament of Sick ___ Supportive presence ___ Wedding ___ Other (describe below) Pastoral Comments
[2025-06-18 16:30] VITALS: BP 154/47; PULSE 75; RESP 16; TEMP 36.8; O2SAT 96
[2025-06-18 19:16] LABS: Hemoglobin 9.1 g/dL (12.0-15.0)
[2025-06-18 21:56] VITALS: BP 153/60; PULSE 77; RESP 16; TEMP 36.7; O2SAT 96
[2025-06-18] MEDS: Insulin Glargine-YFGN 100 UNIT/ML Pen 14 UNIT SC (22:09)
[2025-06-18 22:40] VITALS: O2SAT 97
[2025-06-18 23:10] LABS: Creatinine, Urine (random) 30.90 mg/dL (28.00-217.00); Protein, Urine (Random) 55.1 mg/dL (0.0-12.0); Protein:Creat Ratio 1783 mg/g CRE (0-200)
[2025-06-19] VITALS (9 sets, daily range): BP systolic 115–166; BP diastolic 57–68; PULSE 70–80; RESP 17–18; TEMP 36.7–36.9; O2SAT 92–96
[2025-06-19 06:40] LABS: Hematocrit 25.6 % (37-47); Hemoglobin 8.3 g/dL (12.0-15.0); Immature Granulocytes Count 0.050 X10^3/uL (0.0-0.0); Mean Corp Hgb Conc 32.4 g/dL (32-36); Mean Corpuscular Volume 89.5 fL (81-99); Mean Platelet Vol. 11.5 fl (6.2-12.0); NRBC Flagged by Analyzer 0 % (0-5); Platelet Count 264 K/mm3 (150-450); RBC Distribution Width CV 14.1 % (11.6-14.6); RBC Distribution Width SD 45.6 fl (35.1-43.9); Red Blood Count 2.86 M/mm3 (4.2-5.4); White Blood Count 8.6 K/mm3 (4.4-11.0)
[2025-06-19 07:33] LABS: Anion Gap 13 (5-15); BUN 61 mg/dL (4-19); BUN/Creat Ratio 27.2 RATIO (10-20); Calcium,Total 9.1 mg/dL (7.6-11.0); Carbon Dioxide 16.8 mmol/L (21.0-32.0); Chloride 107 mmol/L (98-108); Estimated Creatinine Clearance 16.26 ml/min (50-250); Glucose 140 mg/dL (70-99); Potassium 4.7 mmol/L (3.3-5.1)
[2025-06-19] MEDS: Metoprolol(XL)Succ 100 MG Tablet PO (08:49)
[2025-06-19] MEDS: Heparin Injection (Vial) 5,000 UNIT/ML VIAL 5000 UNIT SC (08:51)
[2025-06-19] MEDS: 0.9% Saline Lock 10 ML Syringe IV (10:27)
[2025-06-19] MEDS: Sodium Ferric Gluconat/Sucrose 250 MG in 0.9% Normal Saline (250mL Bag) 250 ML 135 MG IV (12:10)
[2025-06-19 12:17] LABS: Hematocrit 28.3 % (37-47); Hemoglobin 9.2 g/dL (12.0-15.0)
--- NOTE | 2025-06-19 14:40 | PN.RENAL_ITS ---
Subjective Subjective Patient sitting in recliner chair. Denies any complaints. Reports feeling somewhat better today. Denies any issues with breathing today. Objective Data Objective Data Vital Signs: Vital Signs Temp Pulse Resp BP Pulse Ox O2 Del Method O2 Flow Rate 98.4 F 80 18 115/67 93 Room Air 3 06/19/25 14:04 06/19/25 14:07 06/19/25 14:04 06/19/25 14:04 06/19/25 14:07 06/19/25 14:07 06/19/25 08:59 Oxygen Flow Rate (L/min) 3 Oxygen Delivery Method Room Air Weight: 73.2 kg Body Mass Index (BMI) 29.7 Intake & Output: Intake and Output for Last 24 Hours 06/17/25 06/18/25 06/19/25 23:59 23:59 23:59 Intake Total 1150 / 1150 1670 / 1670 970 / 970 Balance 1150 / 1150 1670 / 1670 970 / 970 Lab / Micro Data 06/19/25 11:59 06/19/25 06:19 Labs: Laboratory Results - last 24 hr 06/18/25 11:13: U Random Total Protein 55.1 H, Urine Creatinine 30.90, P rotein/Creatinin Ratio 1783 H 06/18/25 12:01: POC Glucose 238 H 06/18/25 16:38: POC Glucose 182 H 06/18/25 18:47: Hgb 9.1 L 06/18/25 22:02: POC Glucose 155 H 06/19/25 06:19: WBC 8.6, RBC 2.86 L, Hgb 8.3 L, Hct 25.6 L, MCV 89.5, MCH 29.0, MCHC 32.4, RDW Std Deviation 45.6 H, RDW Coeff of Hernan 14.1, Plt Count 264, MPV 11.5, Immature Gran % (Auto) 0.600, Neut % (Auto) 69.7, Lymph % (Auto) 19.1, [place] % (Auto) 8.8, Eos % (Auto) 1.3, Baso % (Auto) 0.5, Absolute Neuts (auto) 6.0, Absolute Lymphs (auto) 1.64, Nucleated RBC % 0, Sodium 136, Potassium 4.7, Chloride 107, Carbon Dioxide 16.8 L, Anion Gap 13, BUN 61 H, Creatinine 2.24 H, Estim Creat Clear Calc 16.26 L, Est GFR (MDRD) Non-Af 21 L, BUN/Creatinine Ratio 27.2 H, Glucose 140 H, Calcium 9.1 06/19/25 07:59: POC Glucose 135 H 06/19/25 11:41: POC Glucose 118 H 06/19/25 11:59: Hgb 9.2 L, Hct 28.3 L Micro: Microbiology 06/18/25 10:00 Stool Stool Occult Blood (ROSARIO) - Final Occult Blood Positive Rhythm Strip Rhythm Strip: Sinus Rhythm Rate: 72 Ectopy: None Physical Exam Narrative Alert and oriented x 3, no apparent distress S1, S2, RRR Lungs sound clear anteriorly and posteriorly. On room air Abdomen soft, rounded Trace edema bilateral lower legs and feet Assessment & Plan Assessment/Plan (1) SHA (acute kidney injury): (2) CKD (chronic kidney disease) stage 4, GFR 15-29 ml/min: PLAN: Plan This is a pleasant 89-year-old female with past medical history significant for diabetes mellitus type 2 (last A1c 7.2%), coronary disease status post CABG, hypertension who was admitted to the hospital after presenting with weakness. Serum creatinine on admission 2.4. Patient was started on IV fluids and next day creatinine improved to 2.1. Patient developed difficulty breathing with some lower extremity edema she was given Lasix for 2 days and her creatinine increased to 2.4 mg/dL yesterday. Today serum creatinine 2.2 mg/dL. Patient states after receiving Lasix breathing and swelling improved, patient reports she continues to urinate often. Echo from this admission EF 55%, mild left ventricular hypertrophy, stage II diastolic dysfunction. Reviewing past serum creatinine trends in September 2024 serum creatinine 2.2. January 05, 2025 serum creatinine 1.95. May 2025 serum creatinine 2.2. UA showed 500 protein, 100 glucose, negative for bacteria. Patient likely has CKD stage IV with baseline creatinine low 2 range possibly related to diabetes mellitus. Urine protein creatinine ratio 1.7 mg/g. Renal ultrasound normal kidney size, no hydronephrosis. There is no acute indication for renal placement therapy; patient is nonoliguric, potassium and acid-base acceptable and volume status appears compensated. Likely fluctuation in serum creatinine from hemodynamics. No recent ISABELLA, ARB or NSAIDs. Patient does not need any IV fluids, does not need any diuretics today. Encouraged patient to try and increase fluid and solute intake. Reviewed with patient importance of adequate daily hydration keeping fluid intake to around 1.5 to 2 L/day. Possible discharge today or tomorrow. Okay for discharge per renal standpoint when cleared by primary team and we will arrange follow-up in our [place] office. Assessment and plan reviewed with Dr. Phillips.
--- NOTE | 2025-06-19 15:14 | CASEMGMT ---
RITA PEREZ in to discuss discharge planning with patient, daughter at bedside. [facility] outpatient therapy on her own, patient has prescription. Patient is currently on oxygen. RITA PEREZ review DME agency and if patient qualifies for home oxygen, she prefers [employer]. Patient and daughter had no further questions or concerns for discharge planning. Green sheet on chart for possible oxygen.
--- NOTE | 2025-06-19 16:14 | PN.HOSP_ITS ---
Subjective Subjective Feels little bit better today, no issues overnight. Trialed another dose of Lasix today given that her kidney function improved to see if we can get her off oxygen Objective Data Objective Data Vital Signs: Vital Signs Temp Pulse Resp BP Pulse Ox O2 Del Method O2 Flow Rate 98.4 F 80 18 115/67 93 Room Air 3 06/19/25 14:04 06/19/25 14:07 06/19/25 14:04 06/19/25 14:04 06/19/25 14:07 06/19/25 14:07 06/19/25 08:59 Oxygen Flow Rate (L/min) 3 Oxygen Delivery Method Room Air Weight: 161 lb 6.054 oz Body Mass Index (BMI) 29.7 Intake & Output: Intake and Output for Last 24 Hours 06/18/25 06/19/25 06/20/25 03:59 03:59 03:59 Intake Total 1150 / 1150 1969 670 / 670 Balance 1150 / 1150 1969 670 / 670 Lab / Micro Data 06/19/25 11:59 06/19/25 06:19 Labs: Laboratory Results - last 24 hr 06/18/25 11:13: U Random Total Protein 55.1 H, Urine Creatinine 30.90, P rotein/Creatinin Ratio 1783 H 06/18/25 12:01: POC Glucose 238 H 06/18/25 16:38: POC Glucose 182 H 06/18/25 18:47: Hgb 9.1 L 06/18/25 22:02: POC Glucose 155 H 06/19/25 06:19: WBC 8.6, RBC 2.86 L, Hgb 8.3 L, Hct 25.6 L, MCV 89.5, MCH 29.0, MCHC 32.4, RDW Std Deviation 45.6 H, RDW Coeff of Hernan 14.1, Plt Count 264, MPV 11.5, Immature Gran % (Auto) 0.600, Neut % (Auto) 69.7, Lymph % (Auto) 19.1, [place] % (Auto) 8.8, Eos % (Auto) 1.3, Baso % (Auto) 0.5, Absolute Neuts (auto) 6.0, Absolute Lymphs (auto) 1.64, Nucleated RBC % 0, Sodium 136, Potassium 4.7, Chloride 107, Carbon Dioxide 16.8 L, Anion Gap 13, BUN 61 H, Creatinine 2.24 H, Estim Creat Clear Calc 16.26 L, Est GFR (MDRD) Non-Af 21 L, BUN/Creatinine Ratio 27.2 H, Glucose 140 H, Calcium 9.1 06/19/25 07:59: POC Glucose 135 H 06/19/25 11:41: POC Glucose 118 H 06/19/25 11:59: Hgb 9.2 L, Hct 28.3 L Micro: Microbiology 06/18/25 10:00 Stool Stool Occult Blood (ROSARIO) - Final Occult Blood Positive Rhythm Strip Rhythm Strip: Sinus Rhythm Rate: 72 Ectopy: None Physical Exam Narrative General: Alert, Oriented x3, Cooperative, No apparent distress HEENT: Atraumatic, PERRLA, EOMI, Normocephalic Oral: Moist Mucosa Neck: Supple, No JVD Lungs: Diminished, Normal air movement, bibasilar crackles, No wheeze, No rales Cardiovascular: Regular rate, Regular Rhythm, Normal S1, Normal S2, No murmurs Abdomen: Soft, Non Tender, Non-Distended, No Hepato-splenomegaly Extremities: Trace edema, Capillary Refill Less than 3 Seconds Skin: No rashes, No breakdown Musculoskeletal: No Tenderness to Palpation of Joints or Extremities Neurological: No focal neurological deficits, Motor Exam 5/5 strength throughout, Sensory exam intact to light touch and pain Psych/Mental Status: Normal Affect, Appropriate Assessment & Plan Assessment/Plan (1) SHA (acute kidney injury): PLAN: Plan 1. SHA with hyperkalemia due to dehydration, recent UTI with antibiotics ? Unclear whether or not this has any intrinsic renal component from antibiotics, she discontinued these on ? She has admitted to having poor p.o. intake and does not like to drink water ? Slight improvement in her renal function with resolution of her hyperkalemia ? Renal ultrasound is unremarkable, appreciate nephrology's assistance ? Protein creatinine ratio 1.7 2. Acute on chronic diastolic CHF/essential HTN/HLD/CAD status post CABG/history of CVA ? Blood pressure stable ? Can resume her home blood pressure medications except for losartan pending renal function improvement ? Continue with Crestor ?She had a previous basal ganglia infarction, continue with goal-directed therapy ? Echo 06/16/2025 with an EF of 55% stage II diastolic dysfunction with a PASP of 36 mmHg, will continue with Lasix as I believe her shortness of breath is related to pulmonary edema from a heart failure exacerbation. ? Repeat BMP in the morning 3. DM2 with CKD 3 ? Continue with insulin ? Accu-Cheks ACHS ? Will monitor make adjustments as necessary 4. Normocytic normochromic anemia ? Hemoglobin is 9, after 2.5 l of IV fluids ? Iron studies demonstrated anemia of chronic disease pattern given her chronic kidney disease though fecal occult also did come back positive ? Will continue to monitor and recheck in the morning DVT: SCDs Charges/Coding Visit Charges Inpatient E&M: 60652 Subs Hosp L2
[2025-06-19] MEDS: Insulin Glargine-YFGN 100 UNIT/ML Pen 14 UNIT SC (21:17)
[2025-06-20 02:55] VITALS: BP 156/61; PULSE 76; RESP 17; TEMP 36.7; O2SAT 95
[2025-06-20 02:56] VITALS: O2SAT 95
[2025-06-20 07:03] LABS: Hematocrit 27.4 % (37-47); Hemoglobin 8.9 g/dL (12.0-15.0); Immature Granulocytes Count 0.030 X10^3/uL (0.0-0.0); Mean Corp Hgb Conc 32.5 g/dL (32-36); Mean Corpuscular Volume 89.8 fL (81-99); Mean Platelet Vol. 11.6 fl (6.2-12.0); NRBC Flagged by Analyzer 0 % (0-5); Platelet Count 290 K/mm3 (150-450); RBC Distribution Width CV 14.4 % (11.6-14.6); RBC Distribution Width SD 46.7 fl (35.1-43.9); Red Blood Count 3.05 M/mm3 (4.2-5.4); White Blood Count 9.1 K/mm3 (4.4-11.0)
[2025-06-20 07:54] LABS: Anion Gap 14 (5-15); BUN 57 mg/dL (4-19); BUN/Creat Ratio 25.1 RATIO (10-20); Calcium,Total 9.4 mg/dL (7.6-11.0); Carbon Dioxide 17.5 mmol/L (21.0-32.0); Chloride 107 mmol/L (98-108); Estimated Creatinine Clearance 16.12 ml/min (50-250); Glucose 120 mg/dL (70-99); Potassium 4.7 mmol/L (3.3-5.1)
[2025-06-20 08:55] VITALS: BP 165/68; PULSE 73; RESP 18; TEMP 36.8; O2SAT 95
[2025-06-20 09:57] VITALS: PULSE 73
[2025-06-20] MEDS: Metoprolol(XL)Succ 100 MG Tablet PO (09:57)
--- NOTE | 2025-06-20 10:50 | CASEMGMT ---
Addendum entered by Shanda Owusu 06/20/25 11:04: Social Work SW spoke with pt's dgt regarding pt's functional ability with therapy. Dgt understanding that pt is moving well, but is concerned about breathing and need for oxygen. SW explained home oxygen and that oxygen alone does not require SNF placement. Dgt confirms plan is for pt to follow up with out pt PT but expressing concerns with pt driving. SW educated pt to [facility] for transportation. Physician updated. Plan: home with dgt, possible home oxygen and outpt PT SAUL Carrera Original Note: Social Work Physician notified SW that pt is inquiring about going to TCU. SW met with pt and reviewed therapy notes. Pt Lesvia for ambulation 180 ft, SPT and STS. Supervision for all ADLs. SW explaining that due to high functional level pt may not qualify for SNF. Pt understanding and plans to go home with dgt. CHRISTIE called pt dgt to clarify dc plan and VM left. SAUL Kinsey
[2025-06-20 10:56] VITALS: O2SAT 88; O2SAT 92; O2SAT 95
--- NOTE | 2025-06-20 12:00 | DCINST_ITS ---
Discharge Instructions DC O2, CPAP, BIPAP needs Home O2 Discharge instructions: No Dressing / Incision Discharge Activity: Return to Normal Activity Dressing / Incision Call your doctor if you observe: Fever of 101 or Higher, Shortness of breath, Dizziness, Fainting spells, Swelling in the ankles, Chest pain and Increased palpitations (irregular heartbeat) Follow Up Care Test Results: Test results from this visit will be discussed in further detail at your follow- up appointment, if applicable. Discharge Plan Admission Admit Date/Time: 06/14/25 11:09 Attending Provider: Jack Mae Primary Care Provider: Siena Warren Consulting Providers: Ventura Ivy; Ta Phillips Discharge Orders/Prescriptions Prescriptions: New pantoprazole 20 mg Tablet,Delayed Release (Dr/Ec) 20 mg PO DAILY 30 Days Qty: 30 0RF ferrous sulfate [FeroSul] 325 mg (65 mg iron) Tablet 325 mg PO DAILY@1200 30 Days Qty: 30 0RF furosemide [Lasix] 20 mg tablet 20 mg PO DAILY Qty: 30 0RF Continued Systane Balance 0.6 % drops 1 drp OPHTHALMIC QHS losartan 50 mg tablet 50 mg PO QDAY rosuvastatin 5 mg tablet 5 mg PO QDAY amlodipine 10 mg tablet 10 mg PO QDAY allopurinol 100 MG tablet 100 mg PO DAILYCM Patient Comments: GOUT metoprolol succinate 100 MG tablet extended release 24 hr 100 mg PO DAILY aspirin 81 MG tablet,chewable 81 mg PO DAILY calcium carbonate-vitamin D3 1 EACH tablet 1 ea PO DAILY insulin aspart U-100 100 unit/mL (3 mL) insulin pen 7 unit subcut QAC Rx Instructions: 8 units AM, 3 units, 6 units dinner insulin glargine-yfgn 100 unit/mL (3 mL) insulin pen 14 unit subcut QHS Referrals / Follow Up: Ta Phillips MD [Med Staff - Consulting] - Within 1 Month Siena Warren MD [Primary Care Provider] - Within 1 Week Chidi Rao DO [Med Staff - Active Staff] - Within 3 Months (positive hemoccult) Marika George PA [Med Staff - Adv Practice Prof] - Within 1 Month Disposition Disposition (needs filled in before D/C Order can be placed): Home, Self Care
--- NOTE | 2025-06-20 13:20 | DS.PCM_ITS ---
Providers Date of Admission: 06/14/25 Primary Care Physician: Dr. Siena Warren MD Consultations 06/18/25 09:39 Consult: Nephrology Routine Consulting Provider: Ta Phillips Reason for Consult: SHA EMERGENT Consult: No MD Notified: Yes Date Notified: 06/18/25 Time Notified: 09:53 Method of Notification: Answering Service Reason For Visit: ACUTE KIDNEY INJURY Diagnosis Discharge Diagnosis (1) SHA (acute kidney injury): Status: Acute Code(s): N17.9 - Acute kidney failure, unspecified Medications at Discharge Home Medications allopurinol 100 mg tablet 100 mg PO DAILYCM gout 04/28/14 aspirin 81 mg chewable tablet 81 mg PO DAILY heart 01/17/20 calcium carbonate-vitamin D3 600 mg-125 unit tablet 1 ea PO DAILY bones 01/17/20 metoprolol succinate 100 mg tablet,extended release 24 hr 100 mg PO DAILY bp 01/17/20 propylene glycol 0.6 % eye drops (Systane Balance) 1 drp ophthalmic (eye) QHS Dry Eyes 06/28/20 losartan 50 mg tablet 50 mg PO QDAY 09/22/24 amlodipine 10 mg tablet 10 mg PO QDAY 04/30/25 insulin aspart U-100 100 unit/mL (3 mL) subcutaneous pen 7 unit subcut QAC dm 04/30/25 rosuvastatin 5 mg tablet 5 mg PO QDAY 04/30/25 insulin glargine-yfgn 100 unit/mL (3 mL) subcutaneous pen 14 unit subcut QHS 06/14/25 ferrous sulfate 325 mg (65 mg iron) tablet (FeroSul) 325 mg PO DAILY@1200 30 days #30 tabs 06/20/25 furosemide 20 mg tablet (Lasix) 20 mg PO DAILY #30 tabs 06/20/25 pantoprazole 20 mg tablet,delayed release 20 mg PO DAILY 30 days #30 tabs 06/20/25 Hospital Course Operations None Procedures 2-D Echocardiogram Summary of Care Provided Minutes Spent on Discharge: 35 Hospital Course: Per HPI: CONCHA WOODWARD, is a 89 F who presents generalized weakness. Patient has multiple comorbidities including coronary artery disease status post CABG, chronic kidney disease stage III presented to the emergency department with progressive generalized weakness. Per patient he had recently been treated for acute cystitis has not felt well since. Also did admit to decreased oral intake. Presented to the emergency department as a result found to have worsening kidney function admitted to regular nursing floor as a case of SHA Hospital Course: 1. Acute on chronic diastolic CHF with generalized weakness and hypokalemia/essential HTN/HLD/CAD status post CABG/history of CVA?89-year-old female presented to the hospital issue with generalized weakness. It was thought that she had an SHA because her creatinine was 2.46 on admission with a baseline of around 1.5 however in discussion with nephrology her most recent creatinine levels are around 2-2.2 therefore she did not meet the criteria for an SHA on admission. However because of the initial assumption that she had an SHA she was given IV fluids because she admitted to decreased p.o. intake however she developed significant shortness of breath with pulmonary edema. Echocardiogram demonstrated an EF of 55% with stage II diastolic dysfunction and a PASP of 36 mmHg consistent with acute on chronic diastolic CHF exacerbation. She was started on Lasix and her shortness of breath improved as did her renal function. I did consult nephrology for assistance and they will continue to follow her as an outpatient. She did inquire about going to rehab on discharge however she did not meet therapeutic criteria with PT/OT so she will be discharged home with her daughter. I discussed the plan for discharge with her and she expressed understanding of the risks and benefits of going home and would like to go home today. I did start her on low-dose Lasix 20 mg p.o. daily so I do recommend outpatient follow-up with her PCP and cardiology. She did have an ambulatory pulse ox which demonstrated room air at rest and 2 L with ambulation of which I also recommend that she wear at night. I have reviewed the oxygen testing, and this patient qualifies for the home equipment and portability. The patient is mobile in the home and the community. 2. Normocytic normochromic anemia?she did have a drop in her hemoglobin in January she was 11.6 and today on the day of discharge she is 8.9, she did have a Hemoccult that came back positive however she was also given fluid therefore some of this component is dilutional. I did do iron studies which demonstrated anemia of chronic disease however given her lack of p.o. intake we will place her on p.o. iron recommending outpatient follow-up. She is also on a PPI and I recommend that she follow-up with gastroenterology as an outpatient as well for evaluation of these Hemoccult stools. 3. 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 Her home medications were continued where appropriate Physical Exam Narrative General: Alert, Oriented x3, Cooperative, No apparent distress HEENT: Atraumatic, PERRLA, EOMI, Normocephalic Oral: Moist Mucosa Neck: Supple, No JVD Lungs: Diminished, Normal air movement, bibasilar crackles improved, No wheeze, No rales Cardiovascular: Regular rate, Regular Rhythm, Normal S1, Normal S2, No murmurs Abdomen: Soft, Non Tender, Non-Distended, No Hepato-splenomegaly Extremities: Trace edema, Capillary Refill Less than 3 Seconds Skin: No rashes, No breakdown Musculoskeletal: No Tenderness to Palpation of Joints or Extremities Neurological: No focal neurological deficits, Motor Exam 5/5 strength throughout, Sensory exam intact to light touch and pain Psych/Mental Status: Normal Affect, Appropriate Weight / BMI Weight Weight: 161 lb 6.054 oz Body Mass Index (BMI) 29.7 ABG / Lab / Microbiology Data 06/20/25 06:16 06/20/25 06:16 Laboratory: Laboratory Results - last 24 hr 06/19/25 16:00: POC Glucose 151 H 06/19/25 21:16: POC Glucose 182 H 06/20/25 06:16: WBC 9.1, RBC 3.05 L, Hgb 8.9 L, Hct 27.4 L, MCV 89.8, MCH 29.2, MCHC 32.5, RDW Std Deviation 46.7 H, RDW Coeff of Hernan 14.4, Plt Count 290, MPV 11.6, Immature Gran % (Auto) 0.300, Neut % (Auto) 68.4, Lymph % (Auto) 22.2, [place] % (Auto) 7.4, Eos % (Auto) 1.0, Baso % (Auto) 0.7, Absolute Neuts (auto) 6.3, Absolute Lymphs (auto) 2.03, Nucleated RBC % 0, Sodium 138, Potassium 4.7, Chloride 107, Carbon Dioxide 17.5 L, Anion Gap 14, BUN 57 H, Creatinine 2.26 H, Estim Creat Clear Calc 16.12 L, Est GFR (MDRD) Non-Af 20 L, BUN/Creatinine Ratio 25.1 H, Glucose 120 H, Calcium 9.4 06/20/25 11:36: POC Glucose 196 H Microbiology: Microbiology 06/18/25 10:00 Stool Stool Occult Blood (ROSARIO) - Final Occult Blood Positive D/C Instructions Call your doctor if you observe: Fever of 101 or Higher, Shortness of breath, Dizziness, Fainting spells, Swelling in the ankles, Chest pain and Increased palpitations (irregular heartbeat) DC O2, CPAP, BIPAP Needs Home O2 Discharge instructions: No Meaningful Use Info Meaningful Use Meaningful Use Diagnoses (Choose all that apply): None applicable Discharge Plan Admission Admit Date/Time: 06/14/25 11:09 Attending Provider: Jack Mae Primary Care Provider: Siena Warren Consulting Providers: Ventura Ivy; Ta Phillips Instructions Additional Instructions / Restrictions: You do not require oxygen at rest, I do recommend wearing 2 L with ambulation and at night while you sleep. Discharge Orders/Prescriptions Prescriptions: New pantoprazole 20 mg Tablet,Delayed Release (Dr/Ec) 20 mg PO DAILY 30 Days Qty: 30 0RF ferrous sulfate [FeroSul] 325 mg (65 mg iron) Tablet 325 mg PO DAILY@1200 30 Days Qty: 30 0RF furosemide [Lasix] 20 mg tablet 20 mg PO DAILY Qty: 30 0RF Continued Systane Balance 0.6 % drops 1 drp OPHTHALMIC QHS losartan 50 mg tablet 50 mg PO QDAY rosuvastatin 5 mg tablet 5 mg PO QDAY amlodipine 10 mg tablet 10 mg PO QDAY allopurinol 100 MG tablet 100 mg PO DAILYCM Patient Comments: GOUT metoprolol succinate 100 MG tablet extended release 24 hr 100 mg PO DAILY aspirin 81 MG tablet,chewable 81 mg PO DAILY calcium carbonate-vitamin D3 1 EACH tablet 1 ea PO DAILY insulin aspart U-100 100 unit/mL (3 mL) insulin pen 7 unit subcut QAC Rx Instructions: 8 units AM, 3 units, 6 units dinner insulin glargine-yfgn 100 unit/mL (3 mL) insulin pen 14 unit subcut QHS Referrals / Follow Up: Ta Phillips MD [Med Staff - Consulting] - Within 1 Month Siena Warren MD [Primary Care Provider] - Within 1 Week Chidi Rao DO [Med Staff - Active Staff] - Within 3 Months (positive hemoccult) Marika George, PA [Med Staff - Adv Practice Prof] - Within 1 Month Disposition Disposition (needs filled in before D/C Order can be placed): Home, Self Care Charges/Coding Visit Charges Inpatient E&M: 12609 Disch Hosp >30min
[2025-06-20 14:49] VITALS: BP 152/64; PULSE 82; RESP 18; TEMP 36.4; O2SAT 93
== END 2025-06-20 16:34 | disposition home or self-care (01) | DRG 640 ==
LOC: ED 11:31 → MS3 12:01
PROVIDERS: Internal Medicine Nephrology; Admitting Provider Internal Medicine; Emergency Provider Emergency Medicine; PCP Internal Medicine; Visit Provider Family Medicine
DX: E86.0 Dehydration (principal); I50.33 Acute on chronic diastolic (congestive) heart failure; I13.0 Hypertensive heart and chronic kidney disease with heart failure and stage 1 through stage 4 chronic kidney disease, or unspecified chronic kidney disease; N18.4 Chronic kidney disease, stage 4 (severe); E11.22 Type 2 diabetes mellitus with diabetic chronic kidney disease; D63.1 Anemia in chronic kidney disease; E66.811 Obesity, class 1; I48.0 Paroxysmal atrial fibrillation; I25.5 Ischemic cardiomyopathy; E78.5 Hyperlipidemia, unspecified; R19.7 Diarrhea, unspecified; Z79.4 Long term (current) use of insulin; I25.10 Atherosclerotic heart disease of native coronary artery without angina pectoris; E87.5 Hyperkalemia; I25.2 Old myocardial infarction; Z95.1 Presence of aortocoronary bypass graft; Z68.30 Body mass index [BMI] 30.0-30.9, adult; Z79.82 Long term (current) use of aspirin; Z79.899 Other long term (current) drug therapy; Z86.73 Personal history of transient ischemic attack (TIA), and cerebral infarction without residual deficits; Z87.891 Personal history of nicotine dependence; Z95.5 Presence of coronary angioplasty implant and graft
CPT/HCPCS: 36415; 71045; 71046; 76770; 80048; 80053; 81001; 82274; 82436; 82570; 82728; 82962; 83036; 83540; 83550; 83735; 84100; 84133; 84156; 84300; 85014; 85018; 85025; 93005; 93308; 94668; 97162; 97530; 99284; Q9957; A4216; J1938; J2405; J2916

== ENCOUNTER 2025-07-26 08:49 | Inpatient (IN) | payer MEDICARE, OTHER, SELFPAY ==
[2020-05-18 06:45] VITALS: BMI 31.1
[2025-07-26] VITALS (11 sets, daily range): BP systolic 154–172; BP diastolic 63–76; PULSE 72–88; RESP 16–20; TEMP 36.3–36.8; O2SAT 91–100; BMI 30.9; BMI 30.2
--- NOTE | 2025-07-26 09:01 | EKG12_ITS ---
Test Reason : SOB Blood Pressure : */* mmHG Vent. Rate : 90 BPM Atrial Rate : 90 BPM P-R Int : 188 ms QRS Dur : 122 ms QT Int : 436 ms P-R-T Axes : 68 -43 114 degrees QTcB Int : 533 ms Sinus rhythm with Premature supraventricular complexes Left axis deviation Right bundle branch block Minimal voltage criteria for LVH, may be normal variant ( R in aVL ) Abnormal ECG Confirmed by JHONATAN GARCIA MD ([id number]), editor trade journal KRISHAN LEE ([id number]) on 07/27/2025 7:53:40 AM Referred By: PRICILLA Confirmed By: JHONATAN GARCIA MD
--- NOTE | 2025-07-26 09:02 | ED.VIS.DYS ---
HPI History of Present Illness Chief Complaint: Shortness of Breath Narrative Narrative: 89-year-old female presents with her daughter because of increasing shortness of breath for the last few days to a week. They relate history that she was admitted to the hospital approximately 6 weeks ago. She went home on oxygen. She used it for a few weeks but over the last 3 weeks has not required it. She does have history of chronic kidney disease, stage IV as well as diastolic heart failure. They state that she initially was on Lasix, but that was stopped by her fishing vessel deckhand as her bilateral lower extremity edema had resolved. Patient states that she is having increasing shortness of breath and dyspnea on exertion. She does not have oxygen at home any longer because she had not needed it according to her daughter. She states that her ankles have been slightly more swollen than usual. She denies any fevers or chills, no cough, but whenever she tries to exert herself or walk, she becomes extremely short of breath. Her daughter reports that she had hypoxia at home with pulse ox in the 80s. [facility] Medical History Kidney disease Stroke/cerebrovascular accident Atherosclerosis of coronary artery of [place] heart without angina pectoris Bilateral renal cysts STEMI (ST elevation myocardial infarction) Acute renal failure superimposed on stage 3 chronic kidney disease Paroxysmal atrial fibrillation with RVR Carotid stenosis, right Decubitus ulcer, stage II Thrombocytopenia Acute blood loss anemia Chronic renal failure, stage 3 (moderate) Benign paroxysmal positional vertigo Mild atrial enlargement, left Nonrheumatic mitral valve regurgitation Internal hemorrhoids Diverticulosis Ischemic cardiomyopathy Hypertension Diabetes Physical debility Constipation due to pain medication Gout Basal ganglia infarction Intracranial meningioma Type II diabetes mellitus Benign hypertension Home Medications ?Medication ?Instructions ?Recorded ?Last Taken ?Type allopurinol 100 mg tablet 100 mg PO DAILYCM gout 04/28/14 01/03/20 History aspirin 81 mg chewable tablet 81 mg PO DAILY heart 01/17/20 Unknown History calcium carbonate-vitamin D3 600 1 ea PO DAILY bones 01/17/20 Unknown History mg-125 unit tablet propylene glycol 0.6 % eye drops 1 drp ophthalmic (eye) QHS Dry Eyes 06/28/20 Unknown History (Systane Balance) amlodipine 10 mg tablet 10 mg PO QDAY 04/30/25 Unknown History insulin aspart U-100 100 unit/mL 7 unit subcut QAC dm 04/30/25 Unknown History (3 mL) subcutaneous pen rosuvastatin 5 mg tablet 5 mg PO QDAY 04/30/25 Unknown History insulin glargine-yfgn 100 unit/mL 14 unit subcut QHS 06/14/25 Unknown History (3 mL) subcutaneous pen ferrous sulfate 325 mg (65 mg 325 mg PO DAILY@1200 30 days #30 06/20/25 Unknown Rx iron) tablet (FeroSul) tabs pantoprazole 20 mg tablet,delayed 20 mg PO DAILY 30 days #30 tabs 06/20/25 Unknown Rx release carvedilol 12.5 mg tablet (Coreg) 12.5 mg PO BID #60 tabs 07/02/25 Unknown Rx furosemide 40 mg tablet 40 mg PO DAILY PRN edema #30 tabs 07/02/25 Unknown Rx Allergy/AdvReac Type Severity Reaction Status Date / Time codeine AdvReac Nausea/Vom/ Verified 07/26/25 08:50 Diarrhea morphine AdvReac Nausea/Vom/ Verified 07/26/25 08:50 Diarrhea Family History Aunt Breast cancer Mother Heart disease Father Heart disease Surgical History History of cholecystectomy History of coronary artery bypass graft H/O angioplasty History of left heart catheterization tubal Social History number of children: 2 current occupational status: retired Smoking Status: Former smoker alcohol intake: never substance use type: does not use diet: diabetic caffeine: Yes Type: coffee Number of servings: 1 seatbelt use: always do you feel safe at home: Yes additional social history: 2 children adopted ROS ROS ED ROS Narrative Review of systems positive for shortness of breath and dyspnea on exertion. Positive ankle swelling/pedal edema. No fevers or chills, no cough, no nausea or vomiting, no dark stool/black stool. Denies chest pain. Shortness of breath is worse with mild exertion. EXAM Physical Exam Narrative Exam Narrative: Afebrile. Vital signs noted. Nontoxic-appearing. Cardiovascular examination reveals a regular rate and occasionally irregular rhythm. Positive bibasilar rales on auscultation of the lungs, with mild tachypnea. Abdomen is soft and nontender without guarding or rebound. Positive bowel sounds. Neurological examination is nonfocal, nonlateralizing. Positive pedal edema, pitting, +1 bilaterally, equal and symmetric. Const Vital Signs: 07/26/25 08:50 07/26/25 08:57 07/26/25 09:01 Temperature 97.8 F Temperature Source Temporal Pulse Rate 88 Respiratory Rate 16 Respiratory Effort Short of Breath Respiratory Depth Shallow Blood Pressure 171/63 H Blood Pressure Mean 99 Pulse Ox 96 96 Oxygen Delivery Method Room Air Room Air Room Air Oxygen Flow Rate (L/min) 07/26/25 09:49 07/26/25 10:00 Temperature Temperature Source Pulse Rate 84 84 Respiratory Rate 19 H 18 Respiratory Effort Respiratory Depth Blood Pressure 172/66 H 160/65 H Blood Pressure Mean 101 96 Pulse Ox 94 98 Oxygen Delivery Method Nasal Cannula Nasal Cannula Oxygen Flow Rate (L/min) 2 2 MDM MDM MDM Narrative Medical decision making narrative: The differential diagnosis includes but not limited to anemia requiring transfusions versus CHF exacerbation versus pneumonia versus pneumothorax. History and physical does not support the latter 2 diagnoses. Suspicion is higher for CHF given her ankle swelling. As her blood pressure is elevated at 171/63, she may be having more of a hypertensive urgency versus emergency as well. EKG was obtained and interpreted by myself independently as normal sinus rhythm with premature supraventricular contractions. Chest x-ray in 1 view interpreted by myself independently shows atelectasis in the left lower lung with small bilateral pleural effusions but no consolidation. I reviewed the radiology report which confirmed my independent interpretation. I do not feel this is an infiltrate that requires antibiotic treatment as she does not have a fever, leukocytosis, or clinical signs of pneumonia like cough. I reviewed her laboratory work and normal although she is anemic with a hemoglobin of 8.6, I do not feel she requires blood transfusion and when compared to prior laboratories this appears to be her baseline. No leukocytosis with a WBC count of 9.5, platelet count normal at 312. BMP shows carbon dioxide low at 18.3 which may be secondary to hyperventilation. BUN is 37 with creatinine 2.18 consistent with her chronic kidney disease. Glucose is elevated at 228 but she has a normal anion gap of 15. BNP is elevated at 12,037. She will be given 1 dose of Lasix 40 mg. Patient was ambulated on room air as she does not have oxygen at home. She had oxygen desaturation to 87% on room air. At this point in time, I will discuss patient with the hospitalist for admission. I discussed the patient with Dr. Ivy. Disposition is admitted to the PCU in stable condition. History & Record Review Discussion w/independent historian: Patient and Family (Daughter) Additional record(s) reviewed:: Prior inpatient record (Echocardiogram with ejection fraction of 55%, with noted diastolic dysfunction.) and Prior ED visit Lab Data Attestation: I reviewed the patient's lab results. Labs: Laboratory Results - last 24 hr 07/26/25 09:13 WBC 9.5 RBC 2.96 L Hgb 8.6 L Hct 27.0 L MCV 91.2 MCH 29.1 MCHC 31.9 L RDW Std Deviation 50.2 H RDW Coeff of Hernan 15.1 H Plt Count 312 MPV 10.8 Immature Gran % (Auto) 0.400 Neut % (Auto) 77.7 H Lymph % (Auto) 14.8 L Cloud % (Auto) 6.2 Eos % (Auto) 0.4 Baso % (Auto) 0.5 Absolute Neuts (auto) 7.4 Absolute Lymphs (auto) 1.41 Nucleated RBC % 0 Sodium 136 Potassium 4.3 Chloride 103 Carbon Dioxide 18.3 L Anion Gap 15 BUN 37 H Creatinine 2.18 H Estim Creat Clear Calc 17.10 L Est GFR (MDRD) Non-Af 21 L BUN/Creatinine Ratio 17.1 Glucose 228 H Calcium 9.3 [place] [address] H Radiography Chest X-Ray - ED: 1 View and Read by ED Physician Diagnostic Testing: Clinical Impression(s) from Imaging Studies Chest X-Ray 07/26/25 09:15 IMPRESSION: 1. Small bilateral pleural effusions. 2. Left basilar opacity, likely atelectasis or an infiltrate. Reading Location: [id number] Discharge Plan Dx/Rx/DC Orders Clinical Impression: Chronic kidney disease, Congestive heart failure (CHF), Dyspnea on minimal exertion, Hypoxia [facility]position [facility] Discharge Date/Time: 07/26/25 10:37
--- NOTE | 2025-07-26 09:15 | RAD_ITS ---
PROCEDURE: CHEST 1 VIEW (PORTABLE) 07/26/2025 REASON FOR EXAM: SHORTNESS OF BREATH TECHNIQUE: Frontal view of the chest. COMPARISON: 06/14/2025 FINDINGS: LUNGS AND PLEURA: Small opacity noted in the left lung base. Mild costophrenic angle blunting bilaterally. No pneumothorax. HEART AND MEDIASTINUM: The cardiac silhouette is mildly enlarged. The mediastinal contour is normal. 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 AORTA: Mildly calcified aortic arch. PULMONARY VESSELS: Mild prominence of the central pulmonary vasculature. BONES: No acute osseous abnormality. Old proximal left humerus fracture. RAD/Chest 1 View (Portable) IMPRESSION: 1. Small bilateral pleural effusions. 2. Left basilar opacity, likely atelectasis or an infiltrate. Reading Location: [id number]
[2025-07-26 09:24] LABS: Hematocrit 27.0 % (37-47); Hemoglobin 8.6 g/dL (12.0-15.0); Immature Granulocytes Count 0.040 X10^3/uL (0.0-0.0); Mean Corp Hgb Conc 31.9 g/dL (32-36); Mean Corpuscular Volume 91.2 fL (81-99); Mean Platelet Vol. 10.8 fl (6.2-12.0); NRBC Flagged by Analyzer 0 % (0-5); Platelet Count 312 K/mm3 (150-450); RBC Distribution Width CV 15.1 % (11.6-14.6); RBC Distribution Width SD 50.2 fl (35.1-43.9); Red Blood Count 2.96 M/mm3 (4.2-5.4); White Blood Count 9.5 K/mm3 (4.4-11.0)
--- OUTSIDE RECORDS SUMMARY | 2025-07-26 09:25 | XMS RPT_ITS | CCD ---
Author Organization [facility] Care Team Providers Care Special Delivery Messenger Name Role Phone Anju Pearce MD Primary [...] Pearce Referring Provider RANDY Betancourt Attending Provider [facility], [place] Unavailable Anju Pearce MD Primary Care Provider Ryan PARTY BUS DRIVER.TRANSCRIPT EVALUATOR, Ishmael Unavailable Bairon 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, Iesha Unavailable Bairon 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, Iesha Unavailable Bairon 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, Iesha Unavailable Davis PARTY BUS DRIVER.TRANSCRIPT EVALUATOR, Ishmael Unavailable Davis PARTY BUS DRIVER.TRANSCRIPT EVALUATOR, Ishmael Unavailable Kelvin RIVERA, Dr. Anju Mcdonald Primary Care Provider [phone] Russell MOLINA, Dr. Costa Attending Provider Russell MOLINA, Dr. Costa Emergency Provider Kelvin RIVERA, Dr. Anju Mcdonald Referring Provider Marika Brown Attending Provider Kelvin RIVERA, Dr. Anju Mcdonald Primary Care Provider [phone] Morgan RIVERA, Dr. Locke Attending Provider Deondre RIVERA, Dr. Valentin Emergency Provider Cata RIVERA, Dr. Whitehead Admit Provider Unavailable Cata RIVERA, Dr. Whitehead Attending Provider Unavailrach Mora MD, Dr. Locke Attending Provider Cata RIVERA, Dr. Whitehead Other Provider Unavailable Tu RIVERA, Dr. Jack Lantigua Attending Provider Alan RIVERA, Dr. Chappell Other Provider Cata RIVERA, Dr. Whitehead Attending Provider Unavailrach Mae MD, Dr. Jack Lantigua Other Provider Jody RIVERA, Dr. Haddad Attending Provider Unavailab le TALAMPAS, ANJU Primary Care Unavailable ANGLIN, CARIDAD Referring Unavailable TALAMPAS, ANJU Primary Care Unavailable ANGLINCARMELACARIDAD Attending Unavailable TALAMPAS, ANJU Attending Unavailable TALAMPAS, ANJU Primary Care Unavailable TALAMPAS, ANJU Primary Care Unavailable DAVIS, ISHMAEL Referring Unavailable TALAMPAS, ANJU Primary Care Unavailable DAVIS, ISHMAEL Attending Unavailable TALAMPAS, ANJU Primary Care Unavailable CLEMENT CORTES Attending Unavailable DAVIS, ISHMAEL Attending Unavailable TALAMPAS, ANJU Primary Care Unavailable DAVIS, ISHMAEL Referring Unavailable TALAMPAS, ANJU Referring Unavailable TALAMPAS, ANJU Primary Care Unavailable TALAMPAS, ANJU Primary Care Unavailable DAVIS, ISHMAEL Referring Unavailable TALAMPAS, ANJU Primary Care Unavailable DAVIS, ISHMAEL Referring Unavailable DAVIS, ISHMAEL Attending Unavailable ANGLIN, CARIDAD Referring Unavailable TALAMPAS, ANJU Primary Care Unavailable ANGLIN, CARIDAD Referring Unavailable TALAMPAS, ANJU Primary Care Unavailable Talampas, Anju D Primary Care Unavailable Jack Mae Referring Unavailable Jack Mae Attending Unavailable Talampas, Anju D Primary Care Unavailable Marika Brown Referring Unavail able Doris PADILLA, Marika Cavazos Attending Unavail able Igor Wells Attending Unavailable Talampas, Anju D Primary Care Unavailable Jack Mae Attending Unavailable Ventura Ivy Admitting Unavailable Ventura Ivy Consulting Unavailable Talampas, Anju D Primary Care Unavailable Alan, Ta Consulting Unavailable Talampas, Anju D Primary Care Unavailable Doris PADILLA, Marika Cavazos Attending Unavail able Talampas, Anju D Referring Unavailable Talampas, Anju D Referring Unavailable Talampas, Anju D Primary Care Unavailable Marika Brown Attending Unavail able Talampas, Anju D Referring Unavailable Talampas, Anju D Primary Care Unavailable Doris PADILLA, Marika Cavazos Attending Unavail able Talampas, Anju D Primary Care Unavailable Ventura Ivy Consulting Unavailable Jack Mae Attending Unavailable Ventura Ivy Admitting Unavailable Ta Phillips Consulting Unavailable Jack Mae Consulting Unavailable Ventura Ivy Attending Unavailable Talampas, Anju D Primary Care Unavailable Elmo Kesslerril Attending Unavailable Talampas, Anju D Primary Care Unavailable Catie Vera Attending Unavailable Allergies Allergy Classification Reported Allergen(s) Allergy Type Date of Onset Reaction(s) Facility (20 sources) Codeine; Translations: [CODEINE] Drug Allergy 08-31-20 05 Vomiting [facility] Work Phone: (2 sources) HMG-CoA reductase inhibitor; Translations: [[id number] REDUCTASE INHIBITORS] Propensity to adverse reactions 05-25-20 09 Intolerance [facility] Work Phone: (20 sources) predniSONE; Translations: [PREDNISONE] Drug Allergy 09-05-20 12 Vomiting [facility] (20 sources) Sulfamethoxazole / Trimethoprim; Translations: [SULFAMETHOXAZOLE-T RIMETHOPRIM] Drug Allergy 06-10-20 08 Vomiting [facility] (20 sources) traMADol; Translations: [TRAMADOL HCL] Drug Allergy 01-18-20 13 Vomiting [facility] Work Phone: (20 sources) HMG-CoA reductase inhibitor Propensity to adverse reactions 05-25-20 09 Intolerance [facility] Work Phone: (5 sources) Morphine Drug Allergy 10-04-20 22 Nausea/Vom/Cecy rrhea [facility] (20 sources) dapagliflozin; Translations: [DAPAGLIFLOZIN] Drug Allergy 09-12-20 24 GI Upset [facility] (1 source) Codeine Drug Allergy 07-02-20 25 [facility] (1 source) Morphine Drug Allergy 07-02-20 25 [facility] Medications Current Medications Medication Drug Class(es) [...] 1 tablet by crystal th once daily. amLODIPine 10 mg oral tablet [...] daily. Calcium Carbonate-Vitamin D3 1 EACH tablet (4 sources) Start: 01-17-2020 Calcium Carbonate-Vitamin D3 1 EACH tablet Active 1 NMA PO DAILY January 17, 2020 12:00am bones Start: 01-17-2020 Calcium Carbon ate-Vitamin D3 1 EACH tablet Active 1 NMA PO DAILY January 17, 2020 12:00am carbamide peroxide 65 mg/ml otic solution (20 sources) Start: 05-12-2024 carbamide peroxide (DEBROX) 6.5 % otic solution Use 5 Drops in both ears two times a day. 15 mL 05/12/2024 Active carvedilol 12.5 mg oral tablet (1 source) alpha-Adrenergic Shravan, beta-Adrenergic Shravan Start: 07-02-2025 take 1 tablet by mouth twice daily at mealtime Carvedilol (Coreg) 12.5 mg tablet Active 12.5 mg PO TWICE A DAY 60 July 02, 2025 12:00am must administer with a meal/food cephalexin 250 mg oral capsule (4 sources) Cephalosporin Antibacterial Start: 06-02-2025 End: 06-07-2025 take 1 capsule by mouth twice daily [...] on above: Take 1 capsule by mo [facility] twice daily for 7 days. cholecalciferol 0.025 mg oral capsule (20 sources) Vitamin D Start: 08-30-20 20 take [id number] [IU] by mouth once daily Cholecalciferol, Vitamin D3, 25 mcg (1,000 unit) cap Take 1 capsule by mouth once daily. (1000 to 2000 IU daily fine) 08/30/2020 Active Comment on above: Take 1 capsule by [facility] once daily. (1000 to 2000 IU daily [...] mouth daily with breakfast. 30 tablet 11 05/12/2024 09/18/2024 Discontinued (Side Effects) ferrous sulfate 325 mg oral tablet (2 sources) Start: 025 take 1 tablet by mouth once daily Ferrous Sulfate (Ferosul) 325 mg (65 mg iron) Tablet Active 325 mg PO DAILY@1200 30 30 0 June 20, 2025 12:15pm furosemide 40 mg oral tablet (3 sources) Loop Diuretic Start: 025 take 1 tablet by mouth once daily as needed for edema Furosemide 40 mg tablet Active 40 mg PO DAILY as needed for edema 30 July 02, 2025 2:44pm Start: 06-20-2025 End: 07-02-2025 take 1 tablet by mouth once daily Furosemide (Lasix) 20 mg tablet Discontinued 20 mg PO DAILY 30 0 June 20, 2025 12:00am July 02, 2025 2:45pm 3 ml insulin aspart, human 100 unt/ml pen injector (20 sources) Insulin Analog Start: 04-30-2025 Insulin Aspart U-100 100 unit/mL (3 mL) insulin pen Active 7 U SC before meals April 30, 2025 3:27pm dm 8 units AM, 3 units, 6 units [...] 6 Units daily with dinner 15 Each 3 01/07/2025 01/08/2025 Discontinued Start: 06-19-2024 End: 06-21-2024 [...] LUNCH TIME INSULIN FOR NOW. 15 Each 06/19/2024 01/05/2025 Discontinued Start: 11-05-2023 inject 8-12 [...] 10 Units daily with dinner. 15 Each 11/05/2023 Active Start: 10-31-2023 End: 01-11-2024 insulin [...] lunch, and 10 units dinner 15 Each 04/17/2023 Active Start: 08-22-2022 insulin aspart U-100 [...] 28, 2020 2:08pm April 30, 2025 3:29pm dm 7 units AM, 6 units, 7 units dinner Start: 03-02-2020 End: 06-28-2020 Insulin Aspart U-100 100 uni t/mL (3 mL) insulin pen Discontinued 8 U SC before meals March 02, 2020 1:19pm June 28, 2020 2:10pm dm 12 units AM, 6 units, 10 units dinner Start: 01-17-2020 End: 03-02-2020 Insulin Aspart U-100 100 UNI TS/ML insulin pen Discontinued 8 U SC DAILY@07January 17, 2020 12:00am January 27, 2020 1:48pm dm Start: 01-17-2020 End: 01-27-2020 Insulin Aspart U-100 100 UNI TS/ML insulin pen Discontinued 6 U SC DAILY@1200 January 17, 2020 12:00am January 27, 2020 1:48pm dm Start: 01-17-2020 End: 03-02-2020 Insulin Aspart U-100 Discont inued 8 UNITS SC DAILY@0730 January 17, 2020 12:00am January 27, 2020 [...] (SEMGLEE) 100 unit/mL (3 mL) insulin pen (20 sources) Start: 01-06-20 25 insulin glargine-yfgn (SEMGLEE) 100 unit/mL (3 mL) insulin pen Inject 14 Units subcutaneously daily at bedtime. 15 mL 3 01/05/2025 Active Insulin Glargine-Yfgn 100 unit/mL (3 mL) insulin pen (3 sources) Start: 06-14-20 Insulin Glargine-Yfgn 100 unit/mL (3 mL) insulin pen Active 14 U SC AT BEDTIME June 14, 2025 12:00am losartan potassium 50 mg oral tablet (20 sources) Angiotensin 2 Receptor Shravan Start: 09-05-20 End: 07-02-20 take 1 tablet by mouth once daily losartan (COZAAR) 50 mg tablet Indications: Type 2 diabetes mellitus with stage 3b chronic kidney disease, with long-term current use of insulin ([facility]) , Hypertensive kidney disease with stage 3b chronic kidney disease ([facility]) , Hypertension goal BP (blood pressure) Take 1 tablet by mouth once daily. 90 tablet 1 04/02/2025 Active Comment on above: Take 1 tablet by crystal th once daily. take 1 tablet by crytsal th once daily 24 hr metoprolol succinate 100 mg extended release oral tablet (20 sources) beta-Adrenergic Shravan Start: 01-17-20 End: 07-02-20 take 1 tablet by mouth once daily metoprolol succinate ER (TOPROL XL) 100 mg Take 1 tablet by mouth once daily. 90 tablet 1 04/02/2025 Active Comment on above: Take 1 tablet by crystal th once daily. pantoprazole 20 mg delayed release oral tablet (2 sources) Proton Pump Inhibitor Start: 06-20-20 take 1 tablet by mouth once daily Pantoprazole 20 mg Tablet,Delayed Release (Dr/Ec) Active 20 mg PO DAILY 30 30 0 June 20, 2025 12:00am propylene glycol 6 mg/ml ophthalmic solution (9 sources) Start: 06-28-20 take 0.6 drop(s) into the eye(s) at bedtime Propylene Glycol (Systane Balance) 0.6 % drops Active 1 NMA OPHTHALMIC AT BEDTIME June 28, 2020 12:00am Dry Eyes Start: 06-28-2020 take 0.6 drop(s) int o the eye(s) once daily as needed Propylene Glycol (Systane Balance) 0.6 % drops Active 1 NMA OPHTHALMIC DAILY as needed for Dry Eyes June 28, 2020 12:00am Start: 06-28-2020 take 0.6 drop(s) int o the eye(s) once daily Propylene Glycol (Systane Balance) 0.6 % drops Active 1 DRP OPHTHALMIC DAILY June 28, 2020 12:00am traMADol hydrochloride 50 mg oral tablet (15 sources) Opioid Agonist Start: 02-26-2023 End: 03-05-2023 [...] mg PO Q8H as needed for pain 24 4 0 October 04, 2022 1:00am October 07, 2022 1:00am October 08, 2022 1:04am Closed fracture of left proximal humerus Start: 01-17-2020 End: 03-02-2020 take 1 tablet by mouth every six hours as needed for pain Tramadol 50 MG tablet Discontinued 50 mg PO EVERY 6 HOURS as needed for Pain Score 1-10/10 January 17, 2020 12:00am March 02, 2020 1:21pm Comment on above: Take 1 tablet by crystal th twice daily for 7 days. Completed/Discontinued Medications Medication Drug Class(es) Dates Sig (Normalized) Sig (Original) acetaminophen 500 mg oral tablet (18 sources) Start: 01-27-2020 End: 03-02-2020 Acetaminophen 500 MG tablet Discontinued 650 mg PO EVERY 8 HOURS NEEDED as needed for Pain Score 1-10/10 0 January 27, 2020 12:00am March 02, 2020 1:17pm Start: 01-27-2020 End: 03-02-2020 take 2 tablets by mouth at bedtime Acetaminophen 500 MG tablet Discontinued 1000 mg PO AT BEDTIME 0 January 27, 2020 12:00am March 02, 2020 [...] / oxyCODONE hydrochloride 5 mg oral tablet (6 sources) Opioid Agonist Start: 10-03-2022 End: 10-04-2022 Oxycodone-Acetaminophen (Percocet) 5-325 mg tablet Discontinued 1 {tbl} PO EVERY 6 HOURS as needed for pain 20 5 0 October 03, 2022 October 04, 2022 3:11pm Closed fracture of left proximal humerus [id number] 200 actuat albuterol 0.09 mg/actuat metered dose inhaler (19 sources) beta2-Adrene rgic Agonist Start: 02-19-2025 End: [...] 1:17pm amiodarone hydrochloride 200 mg oral tablet (9 sources) Antiarrhythmic Start: 01-17-2020 End: 03-02-2020 take 1 tablet by mouth once daily Amiodarone 200 MG tablet Discontinued 200 mg PO DAILY January 17, 2020 12:00am March 02, 2020 1:18pm heart atenolol 25 mg oral tablet (9 sources) beta-Adrenergic Shravan Start: 04-28-2014 End: 05-12-2014 take 1 tablet by mouth once daily Atenolol 25 MG tablet Discontinued 25 mg PO DAILY April 28, 2014 12:00am May 12, 2014 12:03pm atorvastatin 40 mg oral tablet (18 sources) HMG-CoA Reductase Inhibitor Start: 03-02-2020 End: 09-22-2024 Atorvastatin 40 mg tablet Discontinued 20 mg PO AT BEDTIME March 02, 2020 1:17pm September 22, 2024 3:46pm cholesterol Start: 03-02-2020 take 20 mg by mouth at bedtime Atorvastatin Active 20 MG PO AT BEDTIME March 02, 2020 1:17pm Start: 01-17-2020 End: 03-02-2020 take 1 tablet by mouth at bedtime Atorvastatin 40 MG tablet Discontinued 40 mg PO AT BEDTIME January 17, 2020 12:00am March 02, 2020 1:22pm cholesterol benzonatate 100 mg oral capsule (10 sources) [...] take 1 tablet by mouth once daily Clopidogrel 75 MG tablet Discontinued 75 mg PO DAILY January 17, 2020 12:48pm September 22, 2024 4:07pm stroke prevention Comment on above: Take 1 tablet by [...] after use. glimepiride 4 mg oral tablet (9 sources) Sulfonylurea Start: 04-28-2014 End: 05-12-2014 take [...] guaiFENesin 600 mg extended release oral tablet (9 sources) Start: 01-17-2020 End: 03-02-2020 take 1 [...] Pen 11 02/06/2022 01/09/2023 Discontinued Start: 06-28-2020 End: 06-14-2025 Insulin Glargine 100 unit/mL (3 mL) insulin pen Discontinued 9 U SC DAILY June 28, 2020 2:07pm June 14, 2025 11:34am Start: 03-02-2020 End: 06-28-2020 Insulin Glargine 100 unit/mL (3 mL) insulin pen Discontinued 11 U SC DAILY March 02, 2020 1:20pm June 28, 2020 2:10pm Start: 01-27-2020 End: 03-02-2020 Insulin Glargine 100 UNITS/M L insulin pen Discontinued 18 U SC DAILY 0 January 27, 2020 12:00am March 02, 2020 1:22pm Start: 01-27-2020 End: 03-02-2020 Insulin Glargine Discontinue d 18 UNITS SC DAILY January 27, 2020 12:00am March 02, 2020 1:22pm Start: 01-03-2020 End: 01-27-2020 inject 11 [IU] by subcutaneous injection once daily Insulin Glargine 100 UNIT/ML insulin pen Discontinued 11 U SQ DAILY January 03, 2020 1:00am January 27, 2020 1:50pm diabetes Comment on above: Inject 11 Units subcutaneously [...] nsulin pen Discontinued 6 U SC DAILY@1200 0 January 29, 2020 12:00am March 02, 2020 1:20pm Start: 01-27-2020 End: 03-02-2020 Insulin Lispro 100 UNIT/ML i nsulin pen Discontinued 12 U SC DAILY@0730 0 January 27, 2020 12:00am March 02, 2020 1:20pm Start: 01-27-2020 End: 03-02-2020 Insulin Lispro 100 UNIT/ML i nsulin pen Discontinued 10 U SC DAILY@1700 0 January 27, 2020 12:00am March 02, 2020 1:20pm Comment on above: Inject 8-12 Units fish bcutaneously daily with breakfast AND 6 Units daily with lunch AND 10 Units daily with dinner. lidocaine 0.05 mg/mg medicated patch (9 sources) Antiarrhythmic, Amide Local Anesthetic Start: 01-17-20 End: 01-27-20 apply 1 dose transdermal route once daily Lidocaine 1 EACH adhesive patch,medicated Discontinued 1 NMA TP DAILY January 17, 2020 12:00am January 27, 2020 2:01pm pain magnesium oxide 400 mg oral tablet (9 sources) Start: 01-17-20 End: 03-02-20 take 1 tablet by mouth once daily Magnesium Oxide 400 MG tablet Discontinued 400 mg PO DAILY January 17, 2020 12:00am March 02, 2020 1:20pm supplement mineral oil 0.03 mg/mg / petrolatum 0.94 mg/mg ophthalmic ointment (20 sources) Start: 01-17-20 End: 03-02-20 White Petrolatum-Mineral Oil 3.5 GM ointment Discontinued 1 APPLICATIO TOPICAL AT BEDTIME January 17, 2020 12:00am March 02, 2020 1:21pm dry Start: 01-17-2020 End: 03-02-2020 White Petrolatum-Mineral Oil [...] application in both eyes daily at bedtime. [place]-3 Fatty Acids-Fish Oil (10 sources) Start: 0 End: 2 take 2 capsules by mouth once daily [place]-3 Fatty Acids-Fish Oil Discontinued 2 CAP PO DAILY June 28, 2020 1:09pm July 13, 2022 2:15pm Start: 06-28-2020 End: 07-13-2022 take 2 capsules by mouth once daily [place]-3 Fatty Acids-Fish Oil Discontinued 2 CAP PO DAILY June 28, 2020 2:09pm July 13, 2022 3:15pm Start: 06-28-2020 take 2 capsules by m out once daily [place]-3 Fatty Acids-Fish Oil Active 2 CAP PO DAILY June 28, 2020 2:09pm Start: 01-03-2020 End: 06-28-2020 [place]-3 Fatty Acids-Fish Oil Discontinued 1 EACH PO DAILY January 03, 2020 12:00am June 28, 2020 1:10pm Start: 01-03-2020 End: 06-28-2020 [place]-3 Fatty Acids-Fish Oil Discontinued 1 EACH PO DAILY January 03, 2020 1:00am June 28, 2020 2:10pm [place]-3 Fatty Acids-Fish Oil 1 EACH capsule (4 sources) Start: 01-03-2020 End: 06-28-2020 [place]-3 Fatty Acids-Fish Oil 1 EACH capsule Discontinued 1 NMA PO DAILY January 03, 2020 1:00am June 28, 2020 2:10pm supplement Start: 01-03-2020 End: 06-28-2020 [place]-3 Fatty Acids-Fish Oil 1 EACH capsule Discontinued 1 NMA PO DAILY January 03, 2020 1:00am June 28, 2020 2:10pm [place]-3 Fatty Acids-Fish Oil 300-1,000 mg capsule (4 sources) Start: 06-28-2020 End: 07-13-2022 [place]-3 Fatty Acids-Fish Oil 300-1,000 mg capsule Discontinued 2 NMA PO DAILY June 28, 2020 2:09pm July 13, 2022 3:15pm supplement Start: 06-28-2020 End: 07-13-2022 [place]-3 Fatty Acids-Fish Oil 300-1,000 mg capsule Discontinued 2 NMA PO DAILY June 28, 2020 2:09pm July 13, 2022 3:15pm ondansetron 4 mg disintegrating oral tablet (16 sources) Serotonin-3 Receptor Antagonist Start: 02-19-2025 End: [...] Q8H as needed for nausea and vomiting 10 0 October 03, 2022 1:00am April 30, 2025 3:28pm oseltamivir 75 mg oral capsule (4 sources) Neuraminidase Inhibitor Start: 01-02-2025 End: 01-07-2025 take 1 capsule by mouth twice daily Oseltamivir (Tamiflu) 75 mg capsule Discontinued 75 mg PO TWICE A DAY 10 5 0 January 02, 2025 1:00am January 06, 2025 1:00am January 07, 2025 1:10am polyethylene glycol 3350 08246 mg powder for oral solution (9 sources) Osmotic Laxative Start: 01-17-2020 End: 03-02-2020 take 17 g by mouth once daily as needed for constipation Polyethylene Glycol 3350 17 GM packet Discontinued 17 g PO DAILY as needed for Constipation January 17, 2020 12:00am March 02, 2020 1:21pm prochlorperazine 5 mg oral tablet (18 sources) Phenothiazine Start: 06-28-2020 End: 07-13-2022 take [...] 6 HOURS NEEDED as needed for Nausea 10 0 January 27, 2020 2:22pm March 02, 2020 1:21pm rosuvastatin calcium 10 mg oral tablet (20 sources) HMG-CoA Reductase Inhibitor Start: 04-30-2025 End: 04-30-2025 take 5 mg by mouth once daily Rosuvastatin 10 mg tablet Discontinued 5 mg PO daily April 30, 2025 3:28pm April 30, 2025 4:03pm Start: 04-30-2025 take 1 tablet by crystal th once daily Rosuvastatin 5 mg tablet Active [...] by crystal once daily as directed sennosides, senior care 8.6 mg oral tablet (9 sources) Start: 0 End: 0 Sennosides 8.6 MG tablet Discontinued 2 {tbl} PO DAILY January 17, 2020 12:00am March 02, 2020 1:21pm constipation torsemide 10 mg oral tablet (9 sources) Loop Diuretic Start: 0 End: 0 take 1 tablet by mouth once daily Torsemide 10 MG tablet Discontinued 10 mg PO DAILY January 17, 2020 12:00am January 29, 2020 11:19am diuretic traZODone hydrochloride 50 mg oral tablet (19 sources) Serotonin Reuptake Inhibitor Start: 0 End: 3 take 1 tablet by mouth at bedtime Trazodone 50 MG tablet Discontinued 50 mg PO AT BEDTIME 30 0 January 27, 2020 12:00am July 13, 2022 3:16pm Comment on above: Take 1 tablet by crystal th daily at bedtime. Problems Active Problems Problem Classification Problem Date Documented Date Episodic/Chronic Acute and unspecified renal failure (15 sources) [id number] renal failure; Translations: [Acute kidney failure, unspecified] Onset: 06-23-2025 02-15-2021 Episodic Comment on above: due to ATN post-op. 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; Translations: [Cerebral infarction due to thrombosis of unspecified precerebral artery] 07-02-2023 Chronic Acute myocardial infarction (9 sources) Myocardial infarction; Translations: [ST elevation (STEMI) myocardial infarction of unspecified site] 03-02-2020 Chronic Comment on above: increased enzymes - late presentation of STEMI with ACS/ongoing pain Acute posthemorrhagic anemia (9 sources) Acute posthemorrhagic anemia; Translations: [Acute posthemorrhagic [...] [Heart failure, unspecified] Onset: 09-14-2023 01-27-2020 Chronic Coronary atherosclerosis and other heart disease (20 sources) Ischemic myocardial dysfunction; Translations: [Ischemic cardiomyopathy] Onset: 01-03-2020 Resolved: 02-11-2020 03-02-2020 Chronic Comment on above: 30% EF Deficiency and other anemia (2 sources) Anemia; [...] Resolved: 10-23-2015 03-21-2017 Chronic E Codes: Fall (6 sources) Fall on same level from slipping, tripping or stumbling ; Translations: [Fall on same level from slipping, tripping and stumbling without subsequent striking against object, initial encounter] 10-11-2022 Episodic Essential hypertension (20 sources) Hypertensive disorder; Translations: [Essential (primary) hypertension] Onset: 05-01-2016 05-01-2016 Chronic Fluid and electrolyte disorders (10 sources) Mild dehydration; Translations: [Dehydration] 01-13-2025 Episodic Fracture of upper limb (9 sources) Closed fracture of upper end of humerus; Translations: [Unspecified fracture of upper end of left humerus, initial encounter for closed fracture] Episodic Gout and other crystal arthropathies (5 sources) Primary gout; 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, multiple sites] Chronic Heart valve disorders (9 sources) Non-rheumatic mitral regurgitation ; Translations: [Nonrheumatic mitral (valve) insufficiency] 03-02-2020 Chronic Comment on above: Moderate Hemorrhoids (9 sources) Internal hemorrhoids; Translations: [Other hemorrhoids] 03-02-2020 Episodic Hypertension with complications and secondary hypertension (20 sources) Hypertensive renal disease; Translations: [Hypertensive chronic kidney disease with stage 1 through stage 4 chronic kidney disease, or unspecified chronic kidney disease] Onset: 01-20-2022 01-20-2022 Chronic Malaise and fatigue (4 sources) Asthenia; Translations: [Weakness] 01-13-2025 Episodic Nutritional deficiencies (5 sources) Vitamin D deficiency; Translations: [Vitamin D deficiency, unspecified] Onset: 05-13-2025 Chronic Occlusion or stenosis of precerebral arteries (9 sources) Right carotid artery stenosis; Translations: [Occlusion and stenosis of right carotid artery] 03-02-2020 Chronic Comment on above: 40 to 59% Other and ill-defined heart disease (9 sources) Left atrial enlargement; Translations: [Cardiomegaly] 03-02-2020 Chronic Other circulatory disease (20 sources) History of cerebrovascular accident; Translations: [Personal history of transient ischemic attack (TIA), and cerebral infarction without residual deficits] Onset: 08-25-2014 01-09-2020 Episodic Other circulatory disease (9 sources) History of angioplasty; Translations: [Peripheral vascular angioplasty status] 03-02-2020 Episodic Comment on above: 1989 Other circulatory disease (6 sources) H/O: hypertension; Translations: [Personal history of other diseases of the circulatory system] 06-14-2025 Episodic Other connective tissue disease (1 source) Swelling [...] Translations: [Obesity, unspecified] Onset: 01-01-2023 Chronic Other nutritional; endocrine; and metabolic disorders (6 sources) H/O: diabetes mellitus; Translations: [Personal history of other endocrine, nutritional and metabolic disease] 06-14-2025 Episodic Other screening for suspected conditions (not mental disorders or infectious disease) (11 sources) Endometrium thickened; Translations: [Abnormal findings on [...] and behavioral disorders] Onset: 05-14-2025 Episodic Unclassified (2 sources) positive hemoccult Unclassified (1 source) Acute cough; Translations: [Acute cough] Onset: 02-19-2025 Urinary tract infections (1 source) Acute lower urinary tract infection; Translations: [Urinary tract infection, site not specified] Episodic Past or Other Problems Problem Classification Problem Date Documented Da te Episodic/Chronic Abdominal pain (20 sources) Abdominal pain; Translations: [Unspecified abdominal pain] Onset: 08-06-2007 Resolved: 12-26-2008 12-26-2008 Episodic Benign neoplasm of uterus (20 sources) Uterine leiomyoma; Translations: [Leiomyoma of uterus, unspecified] Onset: 11-04-2007 Resolved: 03-21-2017 03-21-2017 Episodic Conditions associated with dizziness or vertigo (20 sources) Benign paroxysmal positional vertigo; Translations: [Benign paroxysmal vertigo, unspecified ear] Onset: 12-26-2008 Resolved: 02-22-2015 03-02-2020 Episodic Diverticulosis and diverticulitis (20 sources) Diverticular disease; Translations: [Diverticulosis of intestine, part unspecified, without perforation or abscess without bleeding] Onset: 08-16-2012 Resolved: 02-22-2015 03-02-2020 Chronic Genitourinary symptoms and ill-defined conditions (20 sources) Increased frequency of urination; Translations: [Frequency of micturition] Onset: 08-19-2009 Resolved: 02-22-2015 Episodic Immunizations and screening for infectious disease (10 sources) Patient encounter status; Translations: [Encounter for immunization] Onset: 09-12-2024 08-23-2023 Episodic Influenza (5 sources) Influenza due to Influenza A virus; Translations: [Influenza due to other identified influenza virus with other respiratory manifestations] Onset: 01-30-2025 01-13-2025 Episodic Menopausal disorders (20 sources) Postmenopausal bleeding; Translations: [Postmenopausal bleeding] Onset: 08-19-2009 Resolved: 02-22-2015 01-11-2024 Chronic Mycoses (20 sources) Onychomycosis due to dermatophyte ; Translations: [Tinea unguium] Onset: 12-24-2008 Resolved: 02-22-2015 02-22-2015 Episodic Other aftercare (1 source) intermediate designer (current) use of insulin; Translations: [Type 2 [...] bone, unspecified] Onset: 05-20-2007 12-26-2008 Episodic Other connective tissue disease (20 sources) [...] Translations: [Pleural effusion, not elsewhere classified] Onset: 02-27-2025 02-19-2025 Episodic Spondylosis; intervertebral disc disorders; other back problems (20 sources) Cervico-occipital neuralgia; Translations: [Occipital neuralgia] Onset: 02-25-2013 Resolved: 02-22-2015 02-22-2015 Episodic Viral infection (2 sources) Viral disease; Translations: [Viral infection, unspecified] Onset: 02-19-2025 02-19-2025 Episodic Results Test Name Value Interpretation Reference Range Facility Inital Evaluation (1) - PT 07-10-2025 Inital Evaluation (1) - PT [facility] Physical Therapy [facility] [address] [place] [address] [address] [place] [address] / REHABILITATION SERVICES INITIAL EVALUATION MR#: [id number] Acct: [id number] Name: CICI WOODWARD Rep #: [id number] : 1935 89 From: Steven Chakraborty DPT, OCS, CSCS Referring Dr.: Dr. Jack Mae MD Status: REG RCR Insurance: MEDICARE PART A B [facility] Patient's Visit Information Visit Information Visit Information: CICI WOODWARD is a 89 year old F referred to Physical Therapy by Dr. Jack Mae MD with a diagnosis of weakness. Date of Evaluation: 07/10/25 Physical Therapist: Steven Chakraborty DPT, OCS, CSCS Visit Plan Frequency: 2-3x /Week Duration: 4-6 Weeks Plan: 2-3x/week for 4-6 for IE HE: walk with wh walker or supervision freequent short bouts Treat with: weight shifting gait exercise for confidence adn Fw weight shift, also LE ,funcitonal strength and core/general strength and progress to HEp with pics. Work on steps and gait challenges. Subjective Subjective: Siobhan. Went down hill due to dehydration and felt weak. Hard to move. has stage 4 kidney disease adn anemia. Did not feel well for a couple weeks and went to ER. Did not find much different but pumped her full of fluids. Oxygen no more now. To hospital for 6 days 3 weeks ago. Went home to [facility] b/c not enough energy to go home alone. [place] to living [place] steps, no cane no walker prior. [facility] house is smaller. Still doesn't feel the best and feels weak. Not doing any exercises at home. Sits alot. Watches TV. alot. Moves now and then. Not leaving house much. Used to drive. and to [facility] [address]. used to go to [place] adn to the store but not lately. Basic ADls : dress with only help from dtr but can do it herself. Bathroom I, needs help with shower s it is differnt than her own. Has walk in at home. Objective Objective: Walks with mid guard adn wide DAVID poor FW weight shift, slow and small steps but no AD. Very careful and hesitant. Recommended walker. Trasnfer without UE I but lacks FW weight shift until cued. Steps are rciprocal with two railings pulling weeight up steps due to lack of FW weight shift more than strength. LE AROM WFL, UE AROM WFL but flexion 120 B. reflexes 2/3 patella dn achills B LE Sensation LE WNL to gross light touch B. reciprocal toe adn heel tap is min deficits. Able to heel raise and toe raise holding on only. Balance/Special Test Scores Functional Gait Assessment Score: 19 % Disability: 36.6700 CATSIB Score (Max score 120 seconds): 80 Lower Extremity Functional Score: 33 TUG Test Time Seconds: 18 30 Second Chair Rise Test Seconds: 8 Goals Goal 1:: I apporpriate HEP for LE and general strength via HEP to minimize future problems. Goal Time Frame: 4-6 Weeks Goal 2:: Walk with FGA 24/30 and arms swinging freely into adn out of PT. Goal Time Frame: 4-6 Weeks Goal 3:: steps reciprocal with one rail with out needing to pull with UE. Goal Time Frame: 4-6 Weeks Goal 4:: LEFS score 50 Goal Time Frame: 4-6 Weeks Goal 5:: 30 sSTS 11 Goal Time Frame: 4-6 Weeks Rehabilitation Potential Physical Therapy Diagnosis: weakness and poor weight shift effecting funcitonal mobility and I Rehabilitation Potential: Fair Anticipated Interventions Patient/Client Instruction: Educate patient on: Condition and Plan of Care For the Purpose of:: To improve nutrient delivery to tissue, To improve muscle performance and motor function, To increase tolerance to activity/condition/posi tion, To improve ability of physical actions for home/community/work/lei sure, To improve gait and locomotor functions and To improve safety Therapeutic Exercise to Include: Strength training, Balance training, Postural training, Gait and locomotor training, Passive ROM and Active ROM For the Purpose of:: To improve muscle performance and motor function, To increase tolerance to activity/condition/posi tion, To improve ability of physical actions for home/community/work/lei sure and To improve gait and locomotor functions Text: Thank you for the opportunity to evaluate your patient. For Medicare and Medicare HMO plans, please review the plan of care and approve it. It will need to be FAXED BACK to us at [phone] for Medicare purposes. For Medicare only, by signing this I certify the plan of care. Please let me know if there are questions or concerns regarding this plan of care. Physician Signature: Date: 07/10/25 1522 CC: Dr. Anju Pearce MD; Dr. Jack Mae MD EBG Signed Normal [facility] Cardiology Visit Reporton Cardiology Visit Report [facility] [address] [place], [place] [address]reji. [address] [place] [address] OFFICE VISIT Date of Service: 07/02/25 MR#: [id number] Acct: [id number] Name: TRACECICI Rep #: [id number] : 1935 Provider: RANDY Silverio Age/Sex: 89/F Location: [facility] Status: Signed HPI HPI History of Present Illness Details: Cici Woodward is an 89-year-old female that presents here today for a cardiovascular follow-up. She was last to see us in the office in 2001. She has a history of coronary artery disease requiring bypass surgery. On January 09, 2020 she underwent a four-vessel bypass at [facility]. (GHSOH to diagonal sequenced to LAD, SVG to OM sequenced to RPL). Patient was found to have an EF of around 30% when she had presented with ND. This has since resolved. She has CKD and her lisinopril was discontinued due to rise in creatinine. Patient was hospitalized last month due to UTI. Since then she has had lower extremity edema. She is currently on a low-dose diuretic. Blood pressures at home have still been elevated. She does n ot have any chest pain or worsening shortness of breath. She is fatigued. Intake Vital Signs 06/17/25 11:21 07/02/25 14:00 Height 5 ft 2 in 5 ft 2 in Weight: 167 lb BMI 30.5 BP 151/64 H Blood Pressure Location Lt brachial Position Sitting Respiration 16 Pulse 70 Pulse Source NIBP Intake Visit Reasons: S/P [facility] 06/20 Cancer Spec Required: No Is patient in pain?: No Allergies codeine Adverse Reaction (Verified 07/02/25 14:06) Nausea/Vom/Diarrhea morphine Adverse Reaction (Verified 07/02/25 14:06) Nausea/Vom/Diarrhea Medications ???Medication ???Instructions ???Recorded ???Confirmed ???Type allopurinol 100 mg tablet 100 mg PO DAILYCM gout 04/28/14 History aspirin 81 mg chewable tablet 81 mg PO DAILY heart 01/17/20 08/06/29 History calcium carbonate-vitamin D3 600 1 ea PO DAILY bones 01/17/2007/02 History mg-125 unit tablet propylene glycol 0.6 % eye drops 1 drp ophthalmic (eye) QHS Dry Eye s 06/28/20 07/02/25 History (Systane Balance) amlodipine 10 mg tablet 10 mg PO QDAY 04/30/25 07/02/25 Hi story insulin aspart U-100 100 unit/mL 7 unit subcut QAC dm 04/30/25 08/06/29 History (3 mL) subcutaneous pen rosuvastatin 5 mg tablet 5 mg PO QDAY 04/30/25 07/02/25 His tory insulin glargine-yfgn 100 unit/mL 14 unit subcut QHS 06/14/2507/02 History (3 mL) subcutaneous pen ferrous sulfate 325 mg (65 mg 325 mg PO DAILY@1200 30 days #30 0 06/20/25 07/02/25 Rx iron) tablet (FeroSul) tabs pantoprazole 20 mg tablet,delayed 20 mg PO DAILY 30 days #30 tabs 0 06/20/25 07/02/25 Rx release carvedilol 12.5 mg tablet (Coreg) 12.5 mg PO BID #60 tabs 07/02/25 07/02/25 Rx furosemide 40 mg tablet 40 mg PO DAILY PRN edema #30 tabs 07/02/25 07/02/25 Rx Ejection fraction %: 55 Have you fallen in the past year?: [facility] History Kidney disease Stroke/cerebrovascular accident 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 Bilateral renal cysts [...] Chest Pain: No Palpitations: No Edema: Bilateral Resp Respiratory: Negative for SOB w (more content not included)... Normal [facility] Absolute lymphocyte countOrd ered By: Jack Mae on 06-20-2025 Lymphocytes Auto (Unsp spec) [#/Vol] 2.03 10*3/uL 0.83-4.51 [facility] Absolute neutrophil countOrd ered By: Jack Mae on 06-20-2025 Neutrophils (Bld) [#/Vol] 6.3 10*3/uL 2.0-7.7 [facility] Anion gap in Serum or Plasma Ordered By: Jack Mae on 06-20-2025 Anion gap [Moles/Vol] 14 mmol/L 5-15 [facility] Automated lymphocyte count a s percentage of total leukocytesOrdered By: Jack Mae on 06-20-2025 Lymphocytes/100 WBC Auto (Unsp spec) 22.2 % 19-41 [facility] BUN/creatinine ratioOrdered By: Jack Mae on 06-20-2025 Urea nitrogen/Creatinine [Mass ratio] 25.1 mg/mg High 10- [facility] Basic Metabolic Profile (BMP )on 06-20-2025 BUN/CRE 25.1 RATIO High [facility] Comment on above: Performed By: #### L 100.0100, L500.2500 #### [facility] [address] [place], [address] Calcium [Mass/Vol] 9.4 mg/dL Normal 7.6-11.0 [facility] Comment on above: Performed By: #### L 100.0100, L500.2500 #### [facility] [address] [place], [address] Chloride [Moles/Vol] 107 mmol/L Normal 98-108 [facility] Comment on above: Performed By: #### L 100.0100, L500.2500 #### [facility] [address] [place], [address] CO2 [Moles/Vol] 17.5 mmol/L Low 21.0-32.0 [facility] Comment on above: Performed By: #### L 100.0100, L500.2500 #### [facility] [address] [place], [address] Creatinine [Mass/Vol] 2.26 mg/dL High 0.70-1.20 [facility] Comment on above: Performed By: #### L 100.0100, L500.2500 #### [facility] [address] [place], [address] ECRCL 16.12 ml/min Low 50-250 [facility] Comment on above: Performed By: #### L 100.0100, L500.2500 #### [facility] [address] [place], [address] GAP 14 Normal 5-15 [facility] Comment on above: Performed By: #### L 100.0100, L500.2500 #### [facility] [address] [place], [address] GFR/1.73 sq M.predicted among non-blacks MDRD (S/P/Bld) [Vol rate/Area] 20 mL/min/{1.73_m2} Low >60 [facility] Comment on above: Result Comment: mL/m in/1.73m2 CKD-EPI Creatinine Equation (2020) Performed By: #### L 100.0100, L500.2500 #### [facility] [address] [place], [address] Glucose [Mass/Vol] 120 mg/dL High 70-99 [facility] Comment on above: Performed By: #### L 100.0100, L500.2500 #### [facility] [address] [place], [address] Potassium [Moles/Vol] 4.7 mmol/L Normal 3.3-5.1 [facility] Comment on above: Performed By: #### L 100.0100, L500.2500 #### [facility] [address] [place], [address] Sodium [Moles/Vol] 138 mmol/L Normal 133-145 [facility] Comment on above: Performed By: #### L 100.0100, L500.2500 #### [facility] [address] [place], [address] Urea nitrogen [Mass/Vol] 57 mg/dL High 4-19 [facility] Comment on above: Performed By: #### L 100.0100, L500.2500 #### [facility] [address] [place], [address] Basophil percentageOrdered B y: Jack Tu on 06-20-2025 Basophils/100 WBC (Bld) 0.7 % 0-1 [facility] Bedside Glucoseon 06-20-2025 FINGERSTICK GLU 196 mg/dL High 74-106 [facility] Comment on above: Result Comment: SHONNA CLAYTONENT OF PATIENT CARE PER NURSING PROTOCOL Performed By: #### L 501.080 #### [facility] [address] [place], [address] CBC W/Diff, Automatedon 06-05 Absolute Lymph 2.03 X10 3/uL Normal 0.83-4.51 [facility] Comment on above: Performed By: #### L 100.0100, L500.2500 #### [facility] [address] [place], [address] Absolute Neut 6.3 X10 3/uL Normal 2.0-7.7 [facility] Comment on above: Performed By: #### L 100.0100, L500.2500 #### [facility] [address] [place], [address] Basophils/100 WBC (Bld) 0.7 % Normal 0-1 [facility] Comment on above: Performed By: #### L 100.0100, L500.2500 #### [facility] [address] [place], [address] Eosinophils/100 WBC (Bld) 1.0 % Normal 0-5 [facility] Comment on above: Performed By: #### L 100.0100, L500.2500 #### [facility] [address] [place], [address] Erythrocyte distribution width (RBC) [Ratio] 14.4 % Normal 11.6-14.6 [facility] Comment on above: Performed By: #### L 100.0100, L500.2500 #### [facility] [address] [place], [address] Hematocrit (Bld) [Volume fraction] 27.4 % Low 37-47 [facility] Comment on above: Performed By: #### L 100.0100, L500.2500 #### [facility] [address] [place], [address] Hemoglobin (Bld) [Mass/Vol] 8.9 g/dL Low 12.0-15.0 [facility] Comment on above: Performed By: #### L 100.0100, L500.2500 #### [facility] [address] [place], [address] IG% 0.300 Normal 0.0-0.9 [facility] Comment on above: Result Comment: IG% - Immature Granulocytes (promyelocytes, myelocytes and metamyelocytes) > 1% indicates that a LEFT SHIFT is Present. Performed By: #### L 100.0100, L500.2500 #### [facility] [address] [place], [address] Lymphocytes/100 WBC (Bld) 22.2 % Normal 19-41 [facility] Comment on above: Performed By: #### L 100.0100, L500.2500 #### [facility] [address] [place], [address] MCH (RBC) [Entitic mass] 29.2 pg Normal 27.0-32.0 [facility] Comment on above: Performed By: #### L 100.0100, L500.2500 #### [facility] [address] [place], [address] MCHC (RBC) [Mass/Vol] 32.5 g/dL Normal 32-36 [facility] Comment on above: Performed By: #### L 100.0100, L500.2500 #### [facility] [address] [place], [address] MCV (RBC) [Entitic vol] 89.8 fL Normal 81-99 [facility] Comment on above: Performed By: #### L 100.0100, L500.2500 #### [facility] [address] [place], [address] Monocytes/100 WBC (Bld) 7.4 % Normal 0-10 [facility] Comment on above: Performed By: #### L 100.0100, L500.2500 #### [facility] [address] [place], [address] Neutrophils/100 WBC (Bld) 68.4 % Normal 47-70 [facility] Comment on above: Performed By: #### L 100.0100, L500.2500 #### [facility] [address] [place], [address] Nucleated RBC (Bld) [#/Vol] 0 10*3/uL Normal 0-5 [facility] Comment on above: Performed By: #### L 100.0100, L500.2500 #### [facility] [address] [place], [address] Platelet mean volume (Bld) [Entitic vol] 11.6 fL Normal 6.2-12.0 [facility] Comment on above: Performed By: #### L 100.0100, L500.2500 #### [facility] [address] [place], [address] Platelets (Bld) [#/Vol] 290 10*3/uL Normal 150-450 [facility] Comment on above: Performed By: #### L 100.0100, L500.2500 #### [facility] [address] [place], [address] RBC (Bld) [#/Vol] 3.05 10*6/uL Low 4.2-5.4 [facility] Comment on above: Performed By: #### L 100.0100, L500.2500 #### [facility] [address] [place], [address] RDW SD 46.7 fl High 35.1-43.9 [facility] Comment on above: Performed By: #### L 100.0100, L500.2500 #### [facility] [address] [place], [address] WBC (Bld) [#/Vol] 9.1 10*3/uL Normal 4.4-11.0 [facility] Comment on above: Performed By: #### L 100.0100, L500.2500 #### [facility] [address] [place], [address] Carbon dioxide, total [Moles /volume] in Central venous bloodOrdered By: Jack Mae on 06-20-2025 CO2 [Moles/Vol] 17.5 mmol/L Low 21.0-32.0 [facility] Chloride assayOrdered By: Lillian Mae on 06-20-2025 Chloride [Moles/Vol] 107 mmol/L 98-108 [facility] Discharge Instructionon 06-05 Discharge Instruction [facility] Medical Records Department [address] [place] [address] Instructions for Home/Discharge Instructions 06/20/25 1200 MR#: [id number] Acct: [id number] Name: CICI WOODWARD Rep #: [id number] : 1935 89 From: Jack Mae MD PCP: Dr. Anju Pearce MD Status:ADM IN Discharge Instructions DC O2, CPAP, BIPAP needs Home O2 Discharge instructions: No Dressing / Incision Discharge Activity: Return to Normal Activity Dressing / Incision Call your doctor if you observe: Fever of 101 or Higher, Shortness of breath, Dizziness, Fainting spells, Swelling in the ankles, Chest pain and Increased palpitations (irregular heartbeat) Follow Up Care Test Results: Test results from this visit will be discussed in further detail at your follow-up appointment, if applicable. Discharge Plan Admission Admit Date/Time: 06/14/25 11:09 Attending Provider: Jack Mae Primary Care Provider: Anju Pearce Consulting Providers: Ventura Ivy; Ta Phillips Discharge Orders/Prescriptions Prescriptions: New pantoprazole 20 mg Tablet,Delayed Release (Dr/Ec) 20 mg PO DAILY 30 Days Qty: 30 0RF ferrous sulfate [FeroSul] 325 mg (65 mg iron) Tablet 325 mg PO DAILY@1200 30 Days Qty: 30 0RF furosemide [Lasix] 20 mg tablet 20 mg PO DAILY Qty: 30 0RF Continued Systane Balance 0.6 % drops 1 drp OPHTHALMIC QHS losartan 50 mg tablet 50 mg PO QDAY rosuvastatin 5 mg tablet 5 mg PO QDAY amlodipine 10 mg tablet 10 mg PO QDAY allopurinol 100 MG tablet 100 mg PO DAILYCM Patient Comments: GOUT metoprolol succinate 100 MG tablet extended release 24 hr 100 mg PO DAILY aspirin 81 MG tablet,chewable 81 mg PO DAILY calcium carbonate-vitamin D3 1 EACH tablet 1 ea PO DAILY insulin aspart U-100 100 unit/mL (3 mL) insulin pen 7 unit subcut QAC Rx Instructions: 8 units AM, 3 units, 6 units dinner insulin glargine-yfgn 100 unit/mL (3 mL) insulin pen 14 unit subcut QHS Referrals / Follow Up: Ta Phillips MD [Med Staff - Consulting] - Within 1 Month Anju Pearce MD [Primary Care Provider] - Within 1 Week JalenChidi [Med Staff - Active Staff] - Within 3 Months (positive hemoccult) Marika George PA [Med Staff - Adv Practice Prof] - Within 1 Month Disposition Disposition (needs filled in before D/C Order can be placed): Home, Self Care 06/20/25 1204 Jack Mae MD CC: Dr. Ventura Ivy MD; Dr. Ta Phillips MD; Dr. Anju Pearce MD Signed Normal [facility] Eosinophil percentageOrdered By: Jack Mae on 06-20-2025 Eosinophils/100 WBC (Bld) 1.0 % 0-5 [facility] Erythrocyte distribution wid th ratioOrdered By: Jcak Mae on 06-20-2025 Erythrocyte distribution width (RBC) [Ratio] 14.4 % 11.6-14.6 [facility] Erythrocyte distribution wid th standard deviationOrdered By: Jack Mae on 06-20-2025 Erythrocyte distribution width (RBC) [Ratio] 46.7 fl High 35.1-43.9 [facility] Glomerular filtration rate ( GFR) estimation/1.73 sq m using serum, plasma, or whole bOrdered By: Jack Mae on 06-20-2025 GFR/1.73 sq M.predicted among non-blacks MDRD (S/P/Bld) [Vol rate/Area] 20 mL/min/{1.73_m2} Low >60 [facility] Comment on above: mL/min/1.73m2 CKD-EP I Creatinine Equation (2020) Glucose measurement at bedsi deOrdered By: Jack Mae on 06-20-2025 Glucose [Mass/Vol] 196 mg/dL High 74-106 [facility] Comment on above: MANAGEMENT OF PATIEN T CARE PER NURSING PROTOCOL Hematocrit Auto (Bld) [Volum e fraction]Ordered By: Jack Mae on 06-20-2025 Hematocrit (Bld) [Volume fraction] 27.4 % Low 37-47 [facility] Hemoglobin measurementOrdere d By: Jack Mae on 06-20-2025 Hemoglobin (Bld) [Mass/Vol] 8.9 g/dL Low 12.0-15.0 [facility] Immature granulocytes/100 WB C Auto (Bld)Ordered By: Jack Mae on 06-20-2025 Immature granulocytes/100 WBC (Bld) 0.300 % 0.0-0.9 [facility] Comment on above: IG% - Immature Granu locytes (promyelocytes, myelocytes and metamyelocytes) > 1% indicates that a LEFT SHIFT is Present. MCV (mean corpuscular volume ) determinationOrdered By: Jack Mae on 06-20-2025 MCV (RBC) [Entitic vol] 89.8 fL 81-99 [facility] Mean corpuscular hemoglobin (MCH) determinationOrdered By: Jack Mae on 06-20-2025 MCH (RBC) [Entitic mass] 29.2 pg 27.0-32.0 [facility] Mean corpuscular hemoglobin concentration (MCHC) determinationOrdered By: Jack Mae on 06-20-2025 MCHC (RBC) [Mass/Vol] 32.5 g/dL 32-36 [facility] Mean platelet volume determi nationOrdered By: Jack Mae on 06-20-2025 Platelet mean volume (Bld) [Entitic vol] 11.6 fL 6.2-12.0 [facility] Monocyte percentageOrdered B y: Jack Mae on 06-20-2025 Monocytes/100 WBC (Bld) 7.4 % 0-10 [facility] Neutrophil percentageOrdered By: Jack Mae on 06-20-2025 Neutrophils/100 WBC (Bld) 68.4 % 47-70 [facility] Nucleated red blood cell per centageOrdered By: Jack Mae on 06-20-2025 Nucleated RBC/100 WBC (Bld) [Ratio] 0 % 0-5 [facility] Platelet countOrdered By: Lillian Mae on 06-20-2025 Platelets (Bld) [#/Vol] 290 10*3/uL 150-450 [facility] Potassium measurement (mass/ volume)Ordered By: Jack Mae on 06-20-2025 Potassium (Unsp spec) [Mass/Vol] 4.7 mmol/L 3.3-5.1 [facility] RBC Auto (Bld) [#/Vol]Ordere d By: Jack Mae on 06-20-2025 RBC (Bld) [#/Vol] 3.05 10*6/uL Low 4.2-5.4 [facility] Serum creatinine measurement (mass/volume)Ordered By: Jack Mae on 06-20-2025 Creatinine [Mass/Vol] 2.26 mg/dL High 0.70-1.20 [facility] Serum glucose measurement (m ass/volume)Ordered By: Jack Mae on 06-20-2025 Glucose [Mass/Vol] 120 mg/dL High 70-99 [facility] Serum or plasma calcium anita urement (mass/volume)Ordered By: Jack Mae on 06-20-2025 Calcium [Mass/Vol] 9.4 mg/dL 7.6-11.0 [facility] Serum or plasma urea nitroge n measurement (mass/volume)Ordered By: Jack Mae on 06-20-2025 Urea nitrogen [Mass/Vol] 57 mg/dL High 4-19 [facility] Sodium levelOrdered By: Chris Mae on 06-20-2025 Sodium [Moles/Vol] 138 mmol/L 133-145 [facility] White blood cell (WBC) count Ordered By: Jack Mae on 06-20-2025 WBC (Bld) [#/Vol] 9.1 10*3/uL 4.4-11.0 [facility] Basic Metabolic Profile (BMP )on 06-19-2025 BUN/CRE 27.2 RATIO High 10-20 [facility] Comment on above: Performed By: #### L 501.080 #### [facility] [address] [place], [address] Calcium [Mass/Vol] 9.1 mg/dL Normal 7.6-11.0 [facility] Comment on above: Performed By: #### L 501.080 #### [facility] [address] [place], [address] Chloride [Moles/Vol] 107 mmol/L Normal 98-108 [facility] Comment on above: Performed By: #### L 501.080 #### [facility] [address] [place], [address] CO2 [Moles/Vol] 16.8 mmol/L Low 21.0-32.0 [facility] Comment on above: Performed By: #### L 501.080 #### [facility] [address] [place], [address] Creatinine [Mass/Vol] 2.24 mg/dL High 0.70-1.20 [facility] Comment on above: Performed By: #### L 501.080 #### [facility] [address] [place], [address] ECRCL 16.26 ml/min Low 50-250 [facility] Comment on above: Performed By: #### L 501.080 #### [facility] [address] [place], [address] GAP 13 Normal 5-15 [facility] Comment on above: Performed By: #### L 501.080 #### [facility] [address] [place], [address] GFR/1.73 sq M.predicted among non-blacks MDRD (S/P/Bld) [Vol rate/Area] 21 mL/min/{1.73_m2} Low >60 [facility] Comment on above: Result Comment: mL/m in/1.73m2 CKD-EPI Creatinine Equation (2020) Performed By: #### L 501.080 #### [facility] [address] [place], [address] Glucose [Mass/Vol] 140 mg/dL High 70-99 [facility] Comment on above: Performed By: #### L 501.080 #### [facility] [address] [place], [address] Potassium [Moles/Vol] 4.7 mmol/L Normal 3.3-5.1 [facility] Comment on above: Performed By: #### L [id number] #### [facility] [address] [place], [address] Sodium [Moles/Vol] 136 mmol/L Normal 133-145 [facility] Comment on above: Performed By: #### L 501.080 #### [facility] [address] [place], [address] Urea nitrogen [Mass/Vol] 61 mg/dL High 4-19 [facility] Comment on above: Performed By: #### L 501.080 #### [facility] [address] [place], [address] Bedside Glucoseon 06-19-2025 FINGERSTICK GLU 182 mg/dL High 74-106 [facility] Comment on above: Result Comment: SHONNA GEMENT OF PATIENT CARE PER NURSING PROTOCOL Performed By: #### L 501.080 #### [facility] [address] [place], [address] FINGERSTICK GLU 151 mg/dL High 74-106 [facility] Comment on above: Result Comment: SHONNA GEMENT OF PATIENT CARE PER NURSING PROTOCOL Performed By: #### L 501.080 #### [facility] [address] [place], [address] FINGERSTICK GLU 118 mg/dL High 74-106 [facility] Comment on above: Result Comment: SHONAN GEMENT OF PATIENT CARE PER NURSING PROTOCOL Performed By: #### L 501.080 #### [facility] [address] [place], [address] FINGERSTICK GLU 135 mg/dL High 74-106 [facility] Comment on above: Result Comment: SHONNA GEMENT OF PATIENT CARE PER NURSING PROTOCOL Performed By: #### L 501.080 #### [facility] [address] [place], [address] FINGERSTICK GLU 155 mg/dL High 74-106 [facility] Comment on above: Result Comment: SHONNA GEMENT OF PATIENT CARE PER NURSING PROTOCOL Performed By: #### L 501.080 #### [facility] [address] [place], [address] CBC W/Diff, Automatedon 08-11 09-2024 Absolute Lymph 1.64 X10 3/uL Normal 0.83-4.51 [facility] Comment on above: Performed By: #### L 501.080 #### [facility] [address] [place], [address] Absolute Neut 6.0 X10 3/uL Normal 2.0-7.7 [facility] Comment on above: Performed By: #### L [id number] #### [facility] [address] [place], [address] Basophils/100 WBC (Bld) 0.5 % Normal 0-1 [facility] Comment on above: Performed By: #### L 501.080 #### [facility] [address] [place], [address] Eosinophils/100 WBC (Bld) 1.3 % Normal 0-5 [facility] Comment on above: Performed By: #### L 501.080 #### [facility] [address] [place], [address] Erythrocyte distribution width (RBC) [Ratio] 14.1 % Normal 11.6-14.6 [facility] Comment on above: Performed By: #### L 501.080 #### [facility] [address] [place], [address] Hematocrit (Bld) [Volume fraction] 25.6 % Low 37-47 [facility] Comment on above: Performed By: #### L 501.080 #### [facility] [address] [place], [address] Hemoglobin (Bld) [Mass/Vol] 8.3 g/dL Low 12.0-15.0 [facility] Comment on above: Performed By: #### L 501.080 #### [facility] [address] [place], [address] IG% 0.600 Normal 0.0-0.9 [facility] Comment on above: Result Comment: IG% - Immature Granulocytes (promyelocytes, myelocytes and metamyelocytes) > 1% indicates that a LEFT SHIFT is Present. Performed By: #### L 501.080 #### [facility] [address] [place], [address] Lymphocytes/100 WBC (Bld) 19.1 % Normal 19-41 [facility] Comment on above: Performed By: #### L [id number] #### [facility] [address] [place], [address] MCH (RBC) [Entitic mass] 29.0 pg Normal 27.0-32.0 [facility] Comment on above: Performed By: #### L [id number] #### [facility] [address] [place], [address] MCHC (RBC) [Mass/Vol] 32.4 g/dL Normal 32-36 [facility] Comment on above: Performed By: #### L 501.080 #### [facility] [address] [place], [address] MCV (RBC) [Entitic vol] 89.5 fL Normal 81-99 [facility] Comment on above: Performed By: #### L 501.080 #### [facility] [address] [place], [address] Monocytes/100 WBC (Bld) 8.8 % Normal 0-10 [facility] Comment on above: Performed By: #### L 501.080 #### [facility] [address] [place], [address] Neutrophils/100 WBC (Bld) 69.7 % Normal 47-70 [facility] Comment on above: Performed By: #### L 501.080 #### [facility] [address] [place], [address] Nucleated RBC (Bld) [#/Vol] 0 10*3/uL Normal 0-5 [facility] Comment on above: Performed By: #### L 501.080 #### [facility] [address] [place], [address] Platelet mean volume (Bld) [Entitic vol] 11.5 fL Normal 6.2-12.0 [facility] Comment on above: Performed By: #### L 501.080 #### [facility] [address] [place], [address] Platelets (Bld) [#/Vol] 264 10*3/uL Normal 150-450 [facility] Comment on above: Performed By: #### L 501.080 #### [facility] [address] [place], [address] RBC (Bld) [#/Vol] 2.86 10*6/uL Low 4.2-5.4 [facility] Comment on above: Performed By: #### L 501.080 #### [facility] [address] [place], [address] RDW SD 45.6 fl High 35.1-43.9 [facility] Comment on above: Performed By: #### L 501.080 #### [facility] [address] [place], [address] WBC (Bld) [#/Vol] 8.6 10*3/uL Normal 4.4-11.0 [facility] Comment on above: Performed By: #### L 501.080 #### [facility] [address] [place], [address] HH, Hemoglobin AND Hematocri ton 06-19-2025 Hematocrit (Bld) [Volume fraction] 28.3 % Low 37-47 [facility] Comment on above: Performed By: #### L 501.080 #### [facility] [address] [place], [address] Hemoglobin (Bld) [Mass/Vol] 9.2 g/dL Low 12.0-15.0 [facility] Comment on above: Performed By: #### L 501.080 #### [facility] [address] [place], [address] Basic Metabolic Profile (BMP )on 06-18-2025 BUN/CRE 25.0 RATIO High 10-20 [facility] Comment on above: Performed By: #### L 501.080 #### [facility] [address] [place], [address] Calcium [Mass/Vol] 8.9 mg/dL Normal 7.6-11.0 [facility] Comment on above: Performed By: #### L 501.080 #### [facility] [address] [place], [address] Chloride [Moles/Vol] 106 mmol/L Normal 98-108 [facility] Comment on above: Performed By: #### L 501.080 #### [facility] [address] [place], [address] CO2 [Moles/Vol] 15.6 mmol/L Low 21.0-32.0 [facility] Comment on above: Performed By: #### L 501.080 #### [facility] [address] [place], [address] Creatinine [Mass/Vol] 2.42 mg/dL High 0.70-1.20 [facility] Comment on above: Performed By: #### L 501.080 #### [facility] [address] [place], [address] ECRCL 15.05 ml/min Low 50-250 [facility] Comment on above: Performed By: #### L 501.080 #### [facility] [address] [place], [address] GAP 13 Normal 5-15 [facility] Comment on above: Performed By: #### L 501.080 #### [facility] [address] [place], [address] GFR/1.73 sq M.predicted among non-blacks MDRD (S/P/Bld) [Vol rate/Area] 19 mL/min/{1.73_m2} Low >60 [facility] Comment on above: Result Comment: mL/m in/1.73m2 CKD-EPI Creatinine Equation (2020) Performed By: #### L 501.080 #### [facility] [address] [place], [address] Glucose [Mass/Vol] 208 mg/dL High 70-99 [facility] Comment on above: Performed By: #### L 501.080 #### [facility] [address] [place], [address] Potassium [Moles/Vol] 5.0 mmol/L Normal 3.3-5.1 [facility] Comment on above: Performed By: #### L 501.080 #### [facility] [address] [place], [address] Sodium [Moles/Vol] 135 mmol/L Normal 133-145 [facility] Comment on above: Performed By: #### L 501.080 #### [facility] [address] [place], [address] Urea nitrogen [Mass/Vol] 61 mg/dL High 4-19 [facility] Comment on above: Performed By: #### L 501.080 #### [facility] [address] [place], [address] Bedside Glucoseon 06-18-2025 FINGERSTICK GLU 182 mg/dL High 74-106 [facility] Comment on above: Result Comment: SHONNA GEMENT OF PATIENT CARE PER NURSING PROTOCOL Performed By: #### L 501.080 #### [facility] [address] [place], [address] FINGERSTICK GLU 238 mg/dL High 74-106 [facility] Comment on above: Result Comment: SHONNA GEMENT OF PATIENT CARE PER NURSING PROTOCOL Performed By: #### L 501.080 #### [facility] [address] [place], [address] FINGERSTICK GLU 205 mg/dL High 74-106 [facility] Comment on above: Result Comment: SHONNA GEMENT OF PATIENT CARE PER NURSING PROTOCOL Performed By: #### L 501.080 #### [facility] [address] [place], [address] FINGERSTICK GLU 174 mg/dL High 74-106 [facility] Comment on above: Result Comment: SHONNA GEMENT OF PATIENT CARE PER NURSING PROTOCOL Performed By: #### L 501.080 #### [facility] [address] [place], [address] CBC W/Diff, Automatedon 06-05 Absolute Lymph 1.68 X10 3/uL Normal 0.83-4.51 [facility] Comment on above: Performed By: #### L 501.080 #### [facility] [address] [place], [address] Absolute Neut 6.1 X10 3/uL Normal 2.0-7.7 [facility] Comment on above: Performed By: #### L 501.080 #### [facility] [address] [place], [address] Basophils/100 WBC (Bld) 0.5 % Normal 0-1 [facility] Comment on above: Performed By: #### L 501.080 #### [facility] [address] [place], [address] Eosinophils/100 WBC (Bld) 0.7 % Normal 0-5 [facility] Comment on above: Performed By: #### L 501.080 #### [facility] [address] [place], [address] Erythrocyte distribution width (RBC) [Ratio] 14.2 % Normal 11.6-14.6 [facility] Comment on above: Performed By: #### L 501.080 #### [facility] [address] [place], [address] Hematocrit (Bld) [Volume fraction] 25.9 % Low 37-47 [facility] Comment on above: Performed By: #### L 501.080 #### [facility] [address] [place], [address] Hemoglobin (Bld) [Mass/Vol] 8.4 g/dL Low 12.0-15.0 [facility] Comment on above: Performed By: #### L 501.080 #### [facility] [address] [place], [address] IG% 0.300 Normal 0.0-0.9 [facility] Comment on above: Result Comment: IG% - Immature Granulocytes (promyelocytes, myelocytes and metamyelocytes) > 1% indicates that a LEFT SHIFT is Present. Performed By: #### L 501.080 #### [facility] [address] [place], [address] Lymphocytes/100 WBC (Bld) 19.4 % Normal 19-41 [facility] Comment on above: Performed By: #### L 501.080 #### [facility] [address] [place], [address] MCH (RBC) [Entitic mass] 29.8 pg Normal 27.0-32.0 [facility] Comment on above: Performed By: #### L 501.080 #### [facility] [address] [place], [address] MCHC (RBC) [Mass/Vol] 32.4 g/dL Normal 32-36 [facility] Comment on above: Performed By: #### L 501.080 #### [facility] [address] [place], [address] MCV (RBC) [Entitic vol] 91.8 fL Normal 81-99 [facility] Comment on above: Performed By: #### L 501.080 #### [facility] [address] [place], [address] Monocytes/100 WBC (Bld) 8.3 % Normal 0-10 [facility] Comment on above: Performed By: #### L 501.080 #### [facility] [address] [place], [address] Neutrophils/100 WBC (Bld) 70.8 % High 47-70 [facility] Comment on above: Performed By: #### L 501.080 #### [facility] [address] [place], [address] Nucleated RBC (Bld) [#/Vol] 0 10*3/uL Normal 0-5 [facility] Comment on above: Performed By: #### L 501.080 #### [facility] [address] [place], [address] Platelet mean volume (Bld) [Entitic vol] 11.4 fL Normal 6.2-12.0 [facility] Comment on above: Performed By: #### L 501.080 #### [facility] [address] [place], [address] Platelets (Bld) [#/Vol] 226 10*3/uL Normal 150-450 [facility] Comment on above: Performed By: #### L 501.080 #### [facility] [address] [place], [address] RBC (Bld) [#/Vol] 2.82 10*6/uL Low 4.2-5.4 [facility] Comment on above: Performed By: #### L 501.080 #### [facility] [address] [place], [address] RDW SD 47.9 fl High 35.1-43.9 [facility] Comment on above: Performed By: #### L 501.080 #### [facility] [address] [place], [address] WBC (Bld) [#/Vol] 8.7 10*3/uL Normal 4.4-11.0 [facility] Comment on above: Performed By: #### L 501.080 #### [facility] [address] [place], [address] Consultation - Nephrologyon 06-18-2025 Consultation - Nephrology [facility] Medical Records Department [address] [place] [address] Consultation - Nephrology 06/18/25 1420 MR#: [id number] Acct: [id number] Name: CICI WOODWARD Rep #: [id number] : [id number] From: Franci Merino NP-C PCP: Dr. Anju Pearce MD Status:DIS IN Location: [facility] [place] [id number] Assessment Plan Assessment/Plan (1) SHA (acute kidney injury): (2) CKD (chronic kidney disease) stage 4, GFR 15-29 ml/min: PLAN: Plan This is a pleasant 89-year-old female with past medical history significant for diabetes mellitus type 2 (last A1c 7.2%), coronary disease status post CABG, hypertension who was admitted to the hospital after presenting with weakness. Serum creatinine on admission 2.4. Patient was started on IV fluids and next day creatinine improved to 2.1. Patient developed difficulty breathing with some lower extremity edema she was given Lasix yesterday and again today. Her creatinine is 2.4 mg/dL today. Patient reports since receiving Lasix breathing has improved swelling has improved and she is noted urinating often. Echo from this admission EF 55%, mild left ventricular hypertrophy, stage II diastolic dysfunction. Reviewing past serum creatinine trends in September 2024 serum creatinine 2.2. January 05, 2025 serum creatinine 1.95. May 2025 serum creatinine 2.2. UA showed 500 protein, 100 glucose, negative for bacteria. Patient likely has CKD stage IV with baseline creatinine low 2 range possibly related to diabetes mellitus. Will obtain urine protein creatinine ratio. Renal ultrasound normal kidney size, no hydronephrosis. There is no acute indication for renal placement therapy; patient is nonoliguric, potassium and acid-base acceptable and volume status appears compensated. Likely fluctuation in serum creatinine from hemodynamics. No recent ISABELLA, ARB or NSAIDs. Patient does not need any IV fluids. Labs ordered for a.m. Encouraged patient to try and increase fluid and solute intake. At time of hospitalization we will arrange follow-up in our [place] office. Further orders forthcoming as hospitalization evolves, thank you for allowing us to participate in the care of Ms. Woodward. Assessment and plan reviewed with Dr. Phillips. HPI Consult Data Date of Consult: 06/18/25 HPI Narrative HPI Narrative: CICI WOODWARD, is a 89 F who presented to the ER on June 15 with complaints of feeling weak. Patient had been recently treated for acute cystitis, stated felt better after taking antibiotics but then developed poor oral intake with weakness. Patient was admitted for further evaluation and treatment. Patient has history of diabetes mellitus type 2, hypertension, coronary artery disease status post CABG. Nephrology consulted in view of elevated creatinine. 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 Reviewing past lab work patient has had elevated creatinine dating back to at least 2017. Patient denies any recent NSAIDs. No vomiting. No diarrhea. States appetite is still poor. [facility] Medical History (Updated 06/18/25 @ 14:26 by PATI Denis) Kidney disease Stroke/cerebrovascular accident 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 Bilateral renal cysts [...] Unknow n History tablet,extended release 24 hr propylene glycol 0.6 % eye drops 1 drp ophthalmic (eye) QHS Dry Eye s 06/28/20 Unknown History (Systane Balance) losartan 50 mg tablet 50 mg PO QDAY 09/22/24 Unknown His tory amlodipine 10 mg tablet 10 mg PO QDAY 04/30/25 Unknown His tory insulin aspart U-100 100 unit/mL 7 unit subcut QAC dm 04/30/25 Unkn own History (3 mL) subcutaneous pen rosuvastatin 5 mg tablet 5 mg PO QDAY 04/30/25 Unknown Hist ory insulin glargine-yfgn 100 unit/mL 14 unit subcut QHS 06/14/25 Unkno wn History ( (more content not included)... Normal [facility] Hemoglobinon 06-18-2025 Hemoglobin (Bld) [Mass/Vol] 9.1 g/dL Low 12.0-15.0 [facility] Comment on above: Performed By: #### L 501.080 #### [facility] [address] [place], [address] Protein+Creatinine Ratio,Uri neon 06-18-2025 PROT:CRE RATIO 1783 mg/g CRE High 0-200 [facility] Comment on above: Performed By: #### L 501.080 #### [facility] [address] [place], [address] Protein (U) [Mass/Vol] 55.1 mg/dL High 0.0-12.0 [facility] Comment on above: Performed By: #### L 501.080 #### [facility] [address] [place], [address] UR CREAT 30.90 mg/dL Normal 28.00-217.00 [facility] Comment on above: Performed By: #### L 501.080 #### [facility] [address] [place], [address] Random urine creatinine anita urement (mass/volume)Ordered By: Ta Phillips on 06-18-2025 Creatinine Unsp time (U) [Mass/Vol] 30.90 mg/dL 28.00-217.00 [facility] Stool Occult Blood iFOBon STOB Positive Normal [facility] Comment on above: Performed By: #### L 501.080 #### [facility] [address] [place], [address] Stool gastrointestinal hemog lobin detection by immunologic methodOrdered By: Jack Mae on 06-18-2025 Lower GI hemoglobin IA Ql (Stl) Positive Abnormal [facility] Urine Electrolytes- Randomon 06-18-2025 Chloride,URINE 90 mmol/L Normal Not Establ. [facility] Comment on above: Performed By: #### L 501.080 #### [facility] [address] [place], [address] Sodium (U) [Moles/Vol] 88 mmol/L Normal Not Establ. [facility] Comment on above: Performed By: #### L 501.080 #### [facility] [address] [place], [address] UR K 19.1 mmol/L Normal Not Establ. [facility] Comment on above: Performed By: #### L 501.080 #### [facility] [address] [place], [address] Urine potassium measurement (moles/volume)Ordered By: Jack Mae on 06-18-2025 Potassium (U) [Moles/Vol] 19.1 mmol/L Not Establ. [facility] Urine protein measurement (m ass/volume)Ordered By: Ta Phillips on 06-18-2025 Protein (U) [Mass/Vol] 55.1 mg/dL High 0.0-12.0 [facility] Urine protein/creatinine mas s ratioOrdered By: Ta Phillips on 06-18-2025 Protein/Creatinine (U) [Mass ratio] 1783 mg/g CRE High 0-200 [facility] Urine sodium measurement (mo les/volume)Ordered By: Jack Mae on 06-18-2025 Sodium (U) [Moles/Vol] 88 mmol/L Not Establ. [facility] Basic Metabolic Profile (BMP )on 06-17-2025 BUN/CRE 23.6 RATIO High 10-20 [facility] Comment on above: Performed By: #### L 501.080 #### [facility] [address] [place], [address] Calcium [Mass/Vol] 9.1 mg/dL Normal 7.6-11.0 [facility] Comment on above: Performed By: #### L 501.080 #### [facility] [address] [place], [address] Chloride [Moles/Vol] 107 mmol/L Normal 98-108 [facility] Comment on above: Performed By: #### L 501.080 #### [facility] [address] [place], [address] CO2 [Moles/Vol] 15.0 mmol/L Low 21.0-32.0 [facility] Comment on above: Performed By: #### L 501.080 #### [facility] [address] [place], [address] Creatinine [Mass/Vol] 2.37 mg/dL High 0.70-1.20 [facility] Comment on above: Performed By: #### L 501.080 #### [facility] [address] [place], [address] ECRCL 15.37 ml/min Low 50-250 [facility] Comment on above: Performed By: #### L 501.080 #### [facility] [address] [place], [address] GAP 13 Normal 5-15 [facility] Comment on above: Performed By: #### L 501.080 #### [facility] [address] [place], [address] GFR/1.73 sq M.predicted among non-blacks MDRD (S/P/Bld) [Vol rate/Area] 19 mL/min/{1.73_m2} Low >60 [facility] Comment on above: Result Comment: mL/m in/1.73m2 CKD-EPI Creatinine Equation (2020) Performed By: #### L 501.080 #### [facility] [address] [place], [address] Glucose [Mass/Vol] 159 mg/dL High 70-99 [facility] Comment on above: Performed By: #### L 501.080 #### [facility] [address] [place], [address] Potassium [Moles/Vol] 5.2 mmol/L High 3.3-5.1 [facility] Comment on above: Performed By: #### L 501.080 #### [facility] [address] [place], [address] Sodium [Moles/Vol] 134 mmol/L Normal 133-145 [facility] Comment on above: Performed By: #### L 501.080 #### [facility] [address] [place], [address] Urea nitrogen [Mass/Vol] 56 mg/dL High 4-19 [facility] Comment on above: Performed By: #### L 501.080 #### [facility] [address] [place], [address] Bedside Glucoseon 06-17-2025 FINGERSTICK GLU 196 mg/dL High 74-106 [facility] Comment on above: Result Comment: SHONNA GEMENT OF PATIENT CARE PER NURSING PROTOCOL Performed By: #### L 501.080 #### [facility] [address] [place], [address] FINGERSTICK GLU 215 mg/dL High 74-106 [facility] Comment on above: Result Comment: SHONNA GEMENT OF PATIENT CARE PER NURSING PROTOCOL Performed By: #### L 501.080 #### [facility] [address] [place], [address] FINGERSTICK GLU 241 mg/dL High 74-106 [facility] Comment on above: Result Comment: SHONNA GEMENT OF PATIENT CARE PER NURSING PROTOCOL Performed By: #### L 501.080 #### [facility] [address] [place], [address] FINGERSTICK GLU 164 mg/dL High 74-106 [facility] Comment on above: Result Comment: SHONNA SIMPSON OF PATIENT CARE PER NURSING PROTOCOL Performed By: #### L 501.080 #### [facility] [address] [place], [address] CBC W/Diff, Automatedon - Absolute Lymph 2.44 X10 3/uL Normal 0.83-4.51 [facility] Comment on above: Performed By: #### L [id number] #### [facility] [address] [place], [address] Absolute Neut 6.4 X10 3/uL Normal 2.0-7.7 [facility] Comment on above: Performed By: #### L 501.080 #### [facility] [address] [place], [address] Basophils/100 WBC (Bld) 0.4 % Normal 0-1 [facility] Comment on above: Performed By: #### L 501.080 #### [facility] [address] [place], [address] Eosinophils/100 WBC (Bld) 0.3 % Normal 0-5 [facility] Comment on above: Performed By: #### L 501.080 #### [facility] [address] [place], [address] Erythrocyte distribution width (RBC) [Ratio] 14.5 % Normal 11.6-14.6 [facility] Comment on above: Performed By: #### L 501.080 #### [facility] [address] [place], [address] Hematocrit (Bld) [Volume fraction] 28.2 % Low 37-47 [facility] Comment on above: Performed By: #### L 501.080 #### [facility] [address] [place], [address] Hemoglobin (Bld) [Mass/Vol] 9.3 g/dL Low 12.0-15.0 [facility] Comment on above: Performed By: #### L 501.080 #### [facility] [address] [place], [address] IG% 0.400 Normal 0.0-0.9 [facility] Comment on above: Result Comment: IG% - Immature Granulocytes (promyelocytes, myelocytes and metamyelocytes) > 1% indicates that a LEFT SHIFT is Present. Performed By: #### L 501.080 #### [facility] [address] [place], [address] Lymphocytes/100 WBC (Bld) 25.2 % Normal 19-41 [facility] Comment on above: Performed By: #### L 501.080 #### [facility] [address] [place], [address] MCH (RBC) [Entitic mass] 30.4 pg Normal 27.0-32.0 [facility] Comment on above: Performed By: #### L [id number] #### [facility] [address] [place], [address] MCHC (RBC) [Mass/Vol] 33.0 g/dL Normal 32-36 [facility] Comment on above: Performed By: #### L 501.080 #### [facility] [address] [place], [address] MCV (RBC) [Entitic vol] 92.2 fL Normal 81-99 [facility] Comment on above: Performed By: #### L 501.080 #### [facility] [address] [place], [address] Monocytes/100 WBC (Bld) 7.5 % Normal 0-10 [facility] Comment on above: Performed By: #### L 501.080 #### [facility] [address] [place], [address] Neutrophils/100 WBC (Bld) 66.2 % Normal 47-70 [facility] Comment on above: Performed By: #### L 501.080 #### [facility] [address] [place], [address] Nucleated RBC (Bld) [#/Vol] 0 10*3/uL Normal 0-5 [facility] Comment on above: Performed By: #### L 501.080 #### [facility] [address] [place], [address] Platelet mean volume (Bld) [Entitic vol] 11.2 fL Normal 6.2-12.0 [facility] Comment on above: Performed By: #### L 501.080 #### [facility] [address] [place], [address] Platelets (Bld) [#/Vol] 271 10*3/uL Normal 150-450 [facility] Comment on above: Performed By: #### L 501.080 #### [facility] [address] [place], [address] RBC (Bld) [#/Vol] 3.06 10*6/uL Low 4.2-5.4 [facility] Comment on above: Performed By: #### L 501.080 #### [facility] [address] [place], [address] RDW SD 49.0 fl High 35.1-43.9 [facility] Comment on above: Performed By: #### L 501.080 #### [facility] [address] [place], [address] WBC (Bld) [#/Vol] 9.7 10*3/uL Normal 4.4-11.0 [facility] Comment on above: Performed By: #### L 501.080 #### [facility] [address] [place], [address] Limited echocardiogram repor tOrdered By: Catie Vera on 06-17-2025 Study report [facility] [address] [place] [address] Echo, Limited Study 06/17/25 0948 MR#: [id number] Acct: [id number] Name: CICI WOODWARD Rep #:[id number] : 1935 89 From: Catie Mcdonald Attending Dr: Dr. Jack Mae MD Status: ADM IN Ordering Dr: Jack Mae MD Da te: 06/16/25 Location: [facility]3 Sex: F C Admitted: 06/14/25 Reason For Study Reason For Study: DYSPNEA Procedure This was a limited 2D transthoracic echocardiogram. Exam performed portable in patient room. Left Ventricle Normal LV size. Mild eccentric left ventricular hypertrophy. The estimated ejection fraction is 55 %. Left ventricular systolic function is normal. Stage 2 diastolic dysfunction. E/E' ratio is 26.1. Right Ventricle Normal right ventricle. Normal systolic function. Atria The left atrium is mildly enlarged. Mitral Valve The mitral valve is structurally normal. No prolapse or stenosis seen. Moderate (2+) eccentric mitral valve insufficiency. Tricuspid Valve Mild to moderate (1-2+) tricuspid valve insufficiency. Pulmonary artery systolicpressure is 36 mmHg. Aortic Valve Trisinus/trileaflet aortic valve. Mild focal aortic valve thickening. There is no aortic stenosis. Pulmonic Valve Trivial pulmonic valve insufficiency. Great Vessels The aortic root is not well visualized. Normal inferior vena cava. Pericardium/Pleural No pericardial effusion. MMode/2D Measurements & Calculations LVIDd: 4.7 cm IVSd: 1.1 cm LAV(MOD-bp): 45.4 ml LVIDs: 3.2 cm LVPWd: 1.00 cm LAV(MOD-bp) Indexed: 26.1 ml/m2 RVDd: 3.9 cm FS: 31.8 % LAV(MOD-sp2): 44.4 ml LAV(MOD-sp4): 44.9 ml SV(MOD-sp4): 27.1 ml LVAd ap4: 18.5 cm2 LVAd ap2: 18.0 cm2 LVLd ap4: 6.0 cm LVLd ap2: 6.3 cm SI(MOD-sp4): 15.5 ml/m2 EDV(MOD-sp4): 46.8 ml EDV(MOD-sp2): 45.5 ml EDV(sp4-el): 48.5 ml EDV(sp2-el): 43.9 ml LVAs ap4: 11.4 cm2 LVAs ap2: 11.7 cm2 LVLs ap4: 5.7 cm LVLs ap2: 5.8 cm ESV(MOD-sp4): 19.7 ml ESV(MOD-sp2): 21.2 ml ESV(sp4-el): 19.2 ml ESV(sp2-el): 20.1 ml EF(MOD-sp4): 57.8 % EF(MOD-sp2): 53.4 % EF(sp4-el): 60.4 % SV(MOD-sp2): 24.3 ml SV(sp4-el): 29.3 ml Ao sinusdiam: 2.8 cm SI(MOD-sp2): 14.0 ml/m2 LA dimension(2D): 4.1 cm LA A4 area: 17.3 cm2 RA A4 area: 9.8 cm2 TAPSE: 1.1 cm Time Measurements MV dec time: 0.16 sec Doppler Measurements & Calculations MV E max sidra: 133.2 cm/sec Lat Peak E' Sidra: 7.2 cm/sec Med Peak E' Sidra: 5.1 cm/sec MV A max sidra: 74.9 cm/sec E/E' lat: 18.6 E/E' med: 26.1 MV E/A: 1.8 MV dec slope: 831.8 cm/sec2 Ao V2 max: 135.2 cm/sec LV V1 max: 104.5 cm/sec Ao max P.3 mmHg LV V1 max P.4 mmHg TR max sidra: 371.5 cm/sec TR max P.2 mmHg ECHO/Echo, Limited Study Interpretation Summary Normal LV size. Mild eccentric left ventricular hypertrophy. The estimated ejection fraction is 55 %. Left ventricular systolic function is normal. Moderate (2+) eccentric mitral valve insufficiency. Mild to moderate (1-2+) tricuspid valve insufficiency. Pulmonary artery systolic pressure is 36 mmHg. Stage 2 diastolic dysfunction. Ordering Physician: Jack Mae Referring Physician: ANJU PEARCE Performed By: Therese Adams RDCS 06/17/25 1058 Date _ Catie Vera MD CC: Dr. Anju Pearce MD; Dr. Jack Mae MD ~ Date Dictated: 06/17/2548 Date Transcribed: 06/17/251057 Document Scanner: Signed [facility] Basic Metabolic Profile (BMP )on 06-16-2025 BUN/CRE 21.0 RATIO High 10-20 [facility] Comment on above: Performed By: #### L 501.080 #### [facility] [address] [place], [address] Calcium [Mass/Vol] 8.9 mg/dL Normal 7.6-11.0 [facility] Comment on above: Performed By: #### L 501.080 #### [facility] [address] [place], [address] Chloride [Moles/Vol] 106 mmol/L Normal 98-108 [facility] Comment on above: Performed By: #### L 501.080 #### [facility] [address] [place], [address] CO2 [Moles/Vol] 15.7 mmol/L Low 21.0-32.0 [facility] Comment on above: Performed By: #### L 501.080 #### [facility] [address] [place], [address] Creatinine [Mass/Vol] 2.29 mg/dL High 0.70-1.20 [facility] Comment on above: Performed By: #### L 501.080 #### [facility] [address] [place], [address] ECRCL 15.91 ml/min Low 50-250 [facility] Comment on above: Performed By: #### L 501.080 #### [facility] [address] [place], [address] GAP 12 Normal 5-15 [facility] Comment on above: Performed By: #### L 501.080 #### [facility] [address] [place], [address] GFR/1.73 sq M.predicted among non-blacks MDRD (S/P/Bld) [Vol rate/Area] 20 mL/min/{1.73_m2} Low >60 [facility] Comment on above: Result Comment: mL/m in/1.73m2 CKD-EPI Creatinine Equation (2020) Performed By: #### L 501.080 #### [facility] [address] [place], [address] Glucose [Mass/Vol] 149 mg/dL High 70-99 [facility] Comment on above: Performed By: #### L 501.080 #### [facility] [address] [place], [address] Potassium [Moles/Vol] 5.1 mmol/L Normal 3.3-5.1 [facility] Comment on above: Performed By: #### L 501.080 #### [facility] [address] [place], [address] Sodium [Moles/Vol] 133 mmol/L Normal 133-145 [facility] Comment on above: Performed By: #### L 501.080 #### [facility] [address] [place], [address] Urea nitrogen [Mass/Vol] 48 mg/dL High 4-19 [facility] Comment on above: Performed By: #### L 501.080 #### [facility] [address] [place], [address] Bedside Glucoseon 06-16-2025 FINGERSTICK GLU 198 mg/dL High 74-106 [facility] Comment on above: Result Comment: SHONNA GEMENT OF PATIENT CARE PER NURSING PROTOCOL Performed By: #### L 501.080 #### [facility] [address] [place], [address] FINGERSTICK GLU 155 mg/dL High 74-106 [facility] Comment on above: Result Comment: SHONNA GEMENT OF PATIENT CARE PER NURSING PROTOCOL Performed By: #### L 501.080 #### [facility] [address] [place], [address] FINGERSTICK GLU 209 mg/dL High 74-106 [facility] Comment on above: Result Comment: SHONNA GEMENT OF PATIENT CARE PER NURSING PROTOCOL Performed By: #### L 501.080 #### [facility] [address] [place], [address] FINGERSTICK GLU 140 mg/dL High 74-106 [facility] Comment on above: Result Comment: SHONNA GEMENT OF PATIENT CARE PER NURSING PROTOCOL Performed By: #### L 501.080 #### [facility] [address] [place], [address] CBC W/Diff, Automatedon -11 06-2024 Absolute Lymph 2.04 X10 3/uL Normal 0.83-4.51 [facility] Comment on above: Performed By: #### L 501.080 #### [facility] [address] [place], [address] Absolute Neut 6.2 X10 3/uL Normal 2.0-7.7 [facility] Comment on above: Performed By: #### L 501.080 #### [facility] [address] [place], [address] Basophils/100 WBC (Bld) 0.3 % Normal 0-1 [facility] Comment on above: Performed By: #### L 501.080 #### [facility] [address] [place], [address] Eosinophils/100 WBC (Bld) 0.1 % Normal 0-5 [facility] Comment on above: Performed By: #### L 501.080 #### [facility] [address] [place], [address] Erythrocyte distribution width (RBC) [Ratio] 14.6 % Normal 11.6-14.6 [facility] Comment on above: Performed By: #### L 501.080 #### [facility] [address] [place], [address] Hematocrit (Bld) [Volume fraction] 28.7 % Low 37-47 [facility] Comment on above: Performed By: #### L 501.080 #### [facility] [address] [place], [address] Hemoglobin (Bld) [Mass/Vol] 9.3 g/dL Low 12.0-15.0 [facility] Comment on above: Performed By: #### L 501.080 #### [facility] [address] [place], [address] IG% 0.200 Normal 0.0-0.9 [facility] Comment on above: Result Comment: IG% - Immature Granulocytes (promyelocytes, myelocytes and metamyelocytes) > 1% indicates that a LEFT SHIFT is Present. Performed By: #### L 501.080 #### [facility] [address] [place], [address] Lymphocytes/100 WBC (Bld) 22.7 % Normal 19-41 [facility] Comment on above: Performed By: #### L 501.080 #### [facility] [address] [place], [address] MCH (RBC) [Entitic mass] 29.8 pg Normal 27.0-32.0 [facility] Comment on above: Performed By: #### L 501.080 #### [facility] [address] [place], [address] MCHC (RBC) [Mass/Vol] 32.4 g/dL Normal 32-36 [facility] Comment on above: Performed By: #### L 501.080 #### [facility] [address] [place], [address] MCV (RBC) [Entitic vol] 92.0 fL Normal 81-99 [facility] Comment on above: Performed By: #### L 501.080 #### [facility] [address] [place], [address] Monocytes/100 WBC (Bld) 8.0 % Normal 0-10 [facility] Comment on above: Performed By: #### L 501.080 #### [facility] [address] [place], [address] Neutrophils/100 WBC (Bld) 68.7 % Normal 47-70 [facility] Comment on above: Performed By: #### L 501.080 #### [facility] [address] [place], [address] Nucleated RBC (Bld) [#/Vol] 0 10*3/uL Normal 0-5 [facility] Comment on above: Performed By: #### L 501.080 #### [facility] [address] [place], [address] Platelet mean volume (Bld) [Entitic vol] 10.8 fL Normal 6.2-12.0 [facility] Comment on above: Performed By: #### L 501.080 #### [facility] [address] [place], [address] Platelets (Bld) [#/Vol] 268 10*3/uL Normal 150-450 [facility] Comment on above: Performed By: #### L 501.080 #### [facility] [address] [place], [address] RBC (Bld) [#/Vol] 3.12 10*6/uL Low 4.2-5.4 [facility] Comment on above: Performed By: #### L 501.080 #### [facility] [address] [place], [address] RDW SD 48.9 fl High 35.1-43.9 [facility] Comment on above: Performed By: #### L 501.080 #### [facility] [address] [place], [address] WBC (Bld) [#/Vol] 9.0 10*3/uL Normal 4.4-11.0 [facility] Comment on above: Performed By: #### L 501.080 #### [facility] [address] [place], [address] Chest 1 View (Portable)on Chest 1 View (Portable) [facility] Services [address] [place] [address] Chest 1 View (Portable) MR#: [id number] Acct: [id number] Name: CICI WOODWARD Rep #: [id number] : 1935 F 89 From: Jeffy Alfredo MD PCP: Dr. Anju Pearce MD Status: ADM IN Study: Chest 1 View (Portable) Date of Exam: 06/16/25 Exam# [id number] Ordering Dr: Jack Mae MD PROCEDURE: CHEST 1 VIEW (PORTABLE) 06/16/2025 REASON FOR EXAM: SHORTNESS OF BREATH AND WHEEZING. TECHNIQUE: Frontal view of the chest. COMPARISON: 06/14/2025. FINDINGS: [id number]-left basilar consolidative opacities in a pattern favoring edema. Infection is possible. The heart is enlarged. Prior sternotomy. RAD/Chest 1 View (Portable) IMPRESSION: Probable worsening edema in the setting of cardiomegaly. Infection is possible. Correlate with fever status. Reading Location: [facility] CC: Dr. Anju Pearce MD; Dr. Jack Mae MD Document Scanner: Signed Normal [facility] Echo, Limited Studyon 2024 Echo, Limited Study [facility] [address] [place] [address] Echo, Limited Study 06/17/25 0948 MR#: [id number] Acct: [id number] Name: CICI WOODWARD Rep #: [id number] : 1935 89 From: Catie eVra MD Attending Dr: Dr. Jack Mae MD Status : ADM IN Ordering Dr: Jack Mae MD Date: 06/16/25 Location: [facility]3 Sex: F C Admitted: 06/14/25 Reason For Study Reason For Study: DYSPNEA Procedure This was a limited 2D transthoracic echocardiogram. Exam performed portable in patient room. Left Ventricle Normal LV size. Mild eccentric left ventricular hypertrophy. The estimated ejection fraction is 55 %. Left ventricular systolic function is normal. Stage 2 diastolic dysfunction. E/E' ratio is 26.1. Right Ventricle Normal right ventricle. Normal systolic function. Atria The left atrium is mildly enlarged. Mitral Valve The mitral valve is structurally normal. No prolapse or stenosis seen. Moderate (2+) eccentric mitral valve insufficiency. Tricuspid Valve Mild to moderate (1-2+) tricuspid valve insufficiency. Pulmonary artery systolic pressure is 36 mmHg. Aortic Valve Trisinus/trileaflet aortic valve. Mild focal aortic valve thickening. There is no aortic stenosis. Pulmonic Valve Trivial pulmonic valve insufficiency. Great Vessels The aortic root is not well visualized. Normal inferior vena cava. Pericardium/Pleural No pericardial effusion. MMode/2D Measurements Calculations LVIDd: 4.7 cm IVSd: 1.1 cm LAV(MOD-bp): 45.4 ml LVIDs: 3.2 cm LVPWd: 1.00 cm LAV(MOD-bp) Indexed: 26.1 ml/m2 RVDd: 3.9 cm FS: 31.8 % LAV(MOD-sp2): 44.4 ml LAV(MOD-sp4): 44.9 ml SV(MOD-sp4): 27.1 ml LVAd ap4: 18.5 cm2 LVAd ap2: 18.0 cm2 LVLd ap4: 6.0 cm LVLd ap2: 6.3 cm SI(MOD-sp4): 15.5 ml/m2 EDV(MOD-sp4): 46.8 ml EDV(MOD-sp2): 45.5 ml EDV(sp4-el): 48.5 ml EDV(sp2-el): 43.9 ml LVAs ap4: 11.4 cm2 LVAs ap2: 11.7 cm2 LVLs ap4: 5.7 cm LVLs ap2: 5.8 cm ESV(MOD-sp4): 19.7 ml ESV(MOD-sp2): 21.2 ml ESV(sp4-el): 19.2 ml ESV(sp2-el): 20.1 ml EF(MOD-sp4): 57.8 % EF(MOD-sp2): 53.4 % EF(sp4-el): 60.4 % SV(MOD-sp2): 24.3 ml SV(sp4-el): 29.3 ml Ao sinus diam: 2.8 cm SI(MOD-sp2): 14.0 ml/m2 LA dimension(2D): 4.1 cm LA A4 area: 17.3 cm2 RA A4 area: 9.8 cm2 TAPSE: 1.1 cm Time Measurements MV dec time: 0.16 sec Doppler Measurements Calculations MV E max sidra: 133.2 cm/sec Lat Peak E' Sdira: 7.2 cm/sec Med Peak E' Sidra: 5.1 cm/sec MV A max sidra: 74.9 cm/sec E/E' lat: 18.6 E/E' med: 26.1 MV E/A: 1.8 MV dec slope: 831.8 cm/sec2 Ao V2 max: 135.2 cm/sec LV V1 max: 104.5 cm/sec Ao max P.3 mmHg LV V1 max P.4 mmHg TR max sidra: 371.5 cm/sec TR max P.2 mmHg ECHO/Echo, Limited Study Interpretation Summary Normal LV size. Mild eccentric left ventricular hypertrophy. The estimated ejection fraction is 55 %. Left ventricular systolic function is normal. Moderate (2+) eccentric mitral valve insufficiency. Mild to moderate (1-2+) tricuspid valve insufficiency. Pulmonary artery systolic pressure is 36 mmHg. Stage 2 diastolic dysfunction. Ordering Physician: Jack Mae Referring Physician: ANJU PEARCE Performed By: Therese Adams RDCS 06/17/25 1058 Date Catie Vera MD CC: Dr. Anju Pearce MD; Dr. Jack Mae MD Date Dictated: 06/17/25947 Date Transcribed: 06/17/251057 Document Scanner: Signed Normal [facility] Basic Metabolic Profile (BMP )on 06-15-2025 BUN/CRE 21.6 RATIO High 10-20 [facility] Comment on above: Performed By: #### L 501.080 #### [facility] Laboratory [address] [place], [address] Calcium [Mass/Vol] 8.5 mg/dL Normal 7.6-11.0 [facility] Comment on above: Performed By: #### L 501.080 #### [facility] [address] [place], [address] Chloride [Moles/Vol] 109 mmol/L High 98-108 [facility] Comment on above: Performed By: #### L 501.080 #### [facility] [address] [place], [address] CO2 [Moles/Vol] 16.4 mmol/L Low 21.0-32.0 [facility] Comment on above: Performed By: #### L 501.080 #### [facility] [address] [place], [address] Creatinine [Mass/Vol] 2.16 mg/dL High 0.70-1.20 [facility] Comment on above: Performed By: #### L 501.080 #### [facility] [address] [place], [address] ECRCL 16.86 ml/min Low 50-250 [facility] Comment on above: Performed By: #### L 501.080 #### [facility] [address] [place], [address] GAP 12 Normal 5-15 [facility] Comment on above: Performed By: #### L 501.080 #### [facility] Laboratory [address] [place], [address] GFR/1.73 sq M.predicted among non-blacks MDRD (S/P/Bld) [Vol rate/Area] 22 mL/min/{1.73_m2} Low >60 [facility] Comment on above: Result Comment: mL/m in/1.73m2 CKD-EPI Creatinine Equation (2020) Performed By: #### L 501.080 #### [facility] [address] [place], [address] Glucose [Mass/Vol] 182 mg/dL High 70-99 [facility] Comment on above: Performed By: #### L 501.080 #### [facility] [address] [place], [address] Potassium [Moles/Vol] 5.2 mmol/L High 3.3-5.1 [facility] Comment on above: Performed By: #### L 501.080 #### [facility] [address] [place], [address] Sodium [Moles/Vol] 137 mmol/L Normal 133-145 [facility] Comment on above: Performed By: #### L 501.080 #### [facility] [address] [place], [address] Urea nitrogen [Mass/Vol] 47 mg/dL High 4-19 [facility] Comment on above: Performed By: #### L 501.080 #### [facility] [address] [place], [address] Bedside Glucoseon 06-15-2025 FINGERSTICK GLU 295 mg/dL High 74-106 [facility] Comment on above: Result Comment: SHONNA GEMENT OF PATIENT CARE PER NURSING PROTOCOL Performed By: #### L 501.080 #### [facility] [address] [place], [address] FINGERSTICK GLU 176 mg/dL High 74-106 [facility] Comment on above: Result Comment: SHONNA GEMENT OF PATIENT CARE PER NURSING PROTOCOL Performed By: #### L 501.080 #### [facility] [address] [place] [place], [address] FINGERSTICK GLU 176 mg/dL High 74-106 [facility] Comment on above: Result Comment: SHONNA GEMENT OF PATIENT CARE PER NURSING PROTOCOL Performed By: #### L 501.080 #### [facility] [address] [place], [address] FINGERSTICK GLU 183 mg/dL High 74-106 [facility] Comment on above: Result Comment: SHONNA GEMENT OF PATIENT CARE PER NURSING PROTOCOL Performed By: #### L 501.080 #### [facility] [address] [place], [address] CBC W/Diff, Automatedon 08-11 05-2024 Absolute Lymph 1.95 X10 3/uL Normal 0.83-4.51 [facility] Comment on above: Performed By: #### L 501.080 #### [facility] [address] [place], [address] Absolute Neut 7.5 X10 3/uL Normal 2.0-7.7 [facility] Comment on above: Performed By: #### L 501.080 #### [facility] [address] [place], [address] Basophils/100 WBC (Bld) 0.5 % Normal 0-1 [facility] Comment on above: Performed By: #### L 501.080 #### [facility] [address] [place], [address] Eosinophils/100 WBC (Bld) 0.0 % Normal 0-5 [facility] Comment on above: Performed By: #### L 501.080 #### [facility] [address] [place], [address] Erythrocyte distribution width (RBC) [Ratio] 14.3 % Normal 11.6-14.6 [facility] Comment on above: Performed By: #### L 501.080 #### [facility] [address] [place], [address] Hematocrit (Bld) [Volume fraction] 28.1 % Low 37-47 [facility] Comment on above: Performed By: #### L 501.080 #### [facility] [address] [place], [address] Hemoglobin (Bld) [Mass/Vol] 9.0 g/dL Low 12.0-15.0 [facility] Comment on above: Performed By: #### L 501.080 #### [facility] [address] [place], [address] IG% 0.400 Normal 0.0-0.9 [facility] Comment on above: Result Comment: IG% - Immature Granulocytes (promyelocytes, myelocytes and metamyelocytes) > 1% indicates that a LEFT SHIFT is Present. Performed By: #### L 501.080 #### [facility] [address] [place], [address] Lymphocytes/100 WBC (Bld) 19.5 % Normal 19-41 [facility] Comment on above: Performed By: #### L 501.080 #### [facility] [address] [place], [address] MCH (RBC) [Entitic mass] 29.6 pg Normal 27.0-32.0 [facility] Comment on above: Performed By: #### L 501.080 #### [facility] [address] [place], [address] MCHC (RBC) [Mass/Vol] 32.0 g/dL Normal 32-36 [facility] Comment on above: Performed By: #### L 501.080 #### [facility] [address] [place], [address] MCV (RBC) [Entitic vol] 92.4 fL Normal 81-99 [facility] Comment on above: Performed By: #### L 501.080 #### [facility] [address] [place], [address] Monocytes/100 WBC (Bld) 4.8 % Normal 0-10 [facility] Comment on above: Performed By: #### L 501.080 #### [facility] [address] [place], [address] Neutrophils/100 WBC (Bld) 74.8 % High 47-70 [facility] Comment on above: Performed By: #### L 501.080 #### [facility] [address] [place], [address] Nucleated RBC (Bld) [#/Vol] 0 10*3/uL Normal 0-5 [facility] Comment on above: Performed By: #### L 501.080 #### [facility] [address] [place], [address] Platelet mean volume (Bld) [Entitic vol] 11.0 fL Normal 6.2-12.0 [facility] Comment on above: Performed By: #### L 501.080 #### [facility] [address] [place], [address] Platelets (Bld) [#/Vol] 297 10*3/uL Normal 150-450 [facility] Comment on above: Performed By: #### L 501.080 #### [facility] [address] [place], [address] RBC (Bld) [#/Vol] 3.04 10*6/uL Low 4.2-5.4 [facility] Comment on above: Performed By: #### L 501.080 #### [facility] [address] [place], [address] RDW SD 48.2 fl High 35.1-43.9 [facility] Comment on above: Performed By: #### L 501.080 #### [facility] [address] [place], [address] WBC (Bld) [#/Vol] 10.0 10*3/uL Normal 4.4-11.0 [facility] Comment on above: Performed By: #### L 501.080 #### [facility] [address] [place], [address] Electrocardiogram reportOrde red By: Harris Kessler on 06-15-2025 EKG study [facility] Cardiovascular Services [address] [place] [address] 12 Lead EKG 06/14/25 0858 MR#: [id number] Acct: [id number] Name: CICI WOODWARD Rep #:[id number] : 1935 89 From: Harris Kessler MD Attending Dr: Dr. Jack Mae MD Status: ADM IN Ordering Dr: Homero Mendosa MD Date: 08/29 [place] [facility] [place] Sex: F C Admitted: 06/14/25 Test Reason : Blood Pressure : */* mmHG Vent. Rate : 72 BPM Atrial Rate : 72 BPM P-R Int : 188 ms QRS Dur : 128 ms QT Int : 462 ms P-R-T Axes : 51 -44 76 degrees QTcB Int : 505 ms Normal sinus rhythm Left axis deviation Right bundle branch block Minimal voltage criteria for LVH, may be normal variant ( R in aVL ) Abnormal ECG Confirmed by HARRIS KESSLER MD ([id number]), editor at large KRISHAN LEE ([id number]) on 06/15/2025 1:14:12 PM Referred By: DEONDRE Confirmed By: HARRIS KESSLER MD 06/15/25 1314 Date _ Harris Kessler MD CC: Dr. Homero Mendosa MD; Dr. Anju Pearce MD; Dr. Jack Mae MD ~ Signed [facility] Other Phone: Ferritinon 06-15-2025 Ferritin [Mass/Vol] 153 ng/mL Normal 22-378 [facility] Comment on above: Performed By: #### L 501.080 #### [facility] Laboratory [address] [facility] [place], [place], [address] Hemoglobin A1con 06-15-2025 HbA1c (Bld) [Mass fraction] 7.2 % High <=5.6 [facility] Comment on above: Result Comment: Norm al < 5.7 % Prediabetic 5.7 - 6.4 % Diabetic >or= 6.5 % Please note range changes. Performed By: #### L 501.080 #### [facility] Laboratory [address] [facility] [place], [place], [address] Hemoglobin A1c percentageOrd ered By: Ventura Ivy on 06-15-2025 HbA1c (Bld) [Mass fraction] 7.2 % High <5.7 [facility] Comment on above: Normal < 5.7 % Predi abetic 5.7 - 6.4 % Diabetic >or= 6.5 % Please note range changes. Iron measurement (mass/mass) Ordered By: Jack Mae on 06-15-2025 Iron (Unsp spec) [Mass/Mass] 21 ug/dL Low 50-170 [facility] Iron+Iron Binding Capacityon 06-15-2025 Iron [Mass/Vol] 21 ug/dL Low 50-170 [facility] Comment on above: Performed By: #### L 501.080 #### [facility] Laboratory [address] [facility] [place], [place], [address] IRON SATURATION 7.0 Low 13-59 [facility] Comment on above: Performed By: #### L 501.080 #### [facility] [address] [place], [address] TIBC 290 ug/dL Normal 250-450 [facility] Comment on above: Performed By: #### L 501.080 #### [facility] [address] [place], [address] UIBC 269 ug/dL Normal 228-428 [facility] Comment on above: Performed By: #### L 501.080 #### [facility] Laboratory [address] [place], [address] Kidney and Bladderon 025 Kidney and Bladder [facility] Imaging Services [address] [place] [address] Kidney and Bladder MR#: [id number] Acct: [id number] Name: CICI WOODWARD Rep #: [id number] : 1935 F 89 From: Cornelius martinez MD PCP: Dr. Anju Pearce MD Status: ADM IN Study: Kidney and Bladder Date of Exam: 06/15/25 Exam# [id number] Ordering Dr: Ventura Ivy MD PROCEDURE: KIDNEY AND BLADDER 06/15/2025 REASON FOR EXAM: SHA TECHNIQUE: KIDNEY AND BLADDER COMPARISON: None FINDINGS: Kidneys: Normal renal sizes, parenchymal thicknesses, and echotextures. [place]: No hydronephrosis. Cysts or Masses: No cysts or large solid renal masses. RIGHT Kidney Size: 10.7 cm x 6.1 cm x 4.1 cm Volume: 141.65 mL Cortical Thickness (if discernible): 12 mm (>6mm is normal) LEFT Kidney Size: 8.2 cm x 4.1 cm x 3.2 cm Volume: 56.21 mL Cortical Thickness (if discernible): 11 mm (>6mm is normal) Urinary bladder is unremarkable. US/Kidney and Bladder IMPRESSION: NORMAL RENAL ULTRASOUND. Reading Location: [place] [address] CC: Dr. Ventura Ivy MD; Dr. Anju Pearce MD Document Scanner: Signed Normal [facility] Magnesiumon 06-15-2025 Magnesium [Mass/Vol] 2.2 mg/dL Normal 1.5-2.2 [facility] Comment on above: Performed By: #### L 100.0100, L500.2500 #### [facility] Laboratory [address] [facility] [address] Magnesium measurement (mass/ volume)Ordered By: Ventura Ivy on 06-15-2025 Magnesium (Unsp spec) [Mass/Vol] 2.2 mg/dL 1.5-2.2 [facility] No Panel InformationOrdered By: Jack Mae on 06-15-2025 Unsaturated Iron Binding Capacity 269 ug/dL 228-428 [facility] Phosphoruson 06-15-2025 Phosphate [Mass/Vol] 3.7 mg/dL Normal 2.7-4.5 [facility] Comment on above: Performed By: #### L 501.080 #### [facility] Laboratory [address] [place], [address] Serum or plasma ferritin vernell surement (mass/volume)Ordered By: Jack Mae on 06-15-2025 Ferritin [Mass/Vol] 153 ng/mL 22-378 [facility] Serum or plasma iron saturat ion measurement (mass fraction)Ordered By: Jack Mae on 06-15-2025 Iron saturation [Mass fraction] 7.0 % Low 13-59 [facility] 12 Lead EKGon 06-14-2025 12 Lead EKG [facility] Cardiovascular Services [address] [place] [address] 12 Lead EKG 06/14/25 0858 MR#: [id number] Acct: [id number] Name: CICI WOODWARD Rep #: [id number] : 1935 89 From: Harris Kessler MD Attending Dr: Dr. Jack Mae MD Status : ADM IN Ordering Dr: Homero Mendosa MD Date: 06/14/25 Location: [facility] Sex: F C Admitted: 06/14/25 Test Reason : Blood Pressure : */* mmHG Vent. Rate : 72 BPM Atrial Rate : 72 BPM P-R Int : 188 ms QRS Dur : 128 ms QT Int : 462 ms P-R-T Axes : 51 -44 76 degrees QTcB Int : 505 ms Normal sinus rhythm Left axis deviation Right bundle branch block Minimal voltage criteria for LVH, may be normal variant ( R in aVL ) Abnormal ECG Confirmed by HARRIS KESSLER MD ([id number]), editor at large KRISHAN LEE ([id number]) on 06/15/2025 1:14:12 PM Referred By: DEONDRE Confirmed By: HARRIS KESSLER MD 06/15/25 1314 Date Harris Kessler MD CC: Dr. Homero Mendosa MD; Dr. Anju Pearce MD; Dr. Jack Mae MD Signed Normal [facility] Absolute lymphocyte countOrd ered By: Homero Mendosa on 06-14-2025 Lymphocytes Auto (Unsp spec) [#/Vol] 2.09 10*3/uL 0.83-4.51 [facility] Absolute neutrophil countOrd ered By: Homero Mendosa on 06-14-2025 Neutrophils (Bld) [#/Vol] 9.5 10*3/uL High 2.0-7.7 [facility] Anion gap in Serum or Plasma Ordered By: Homero Mendosa on 06-14-2025 Anion gap [Moles/Vol] 15 mmol/L 5-15 [facility] Automated lymphocyte count a s percentage of total leukocytesOrdered By: Homero Mendosa on 06-14-2025 Lymphocytes/100 WBC Auto (Unsp spec) 16.9 % Low 19-41 [facility] BUN/creatinine ratioOrdered By: Homero Mendosa on 06-14-2025 Urea nitrogen/Creatinine [Mass ratio] 21.4 mg/mg High 10-20 [facility] Basophil percentageOrdered B y: Homero Mendosa on 06-14-2025 Basophils/100 WBC (Bld) 0.5 % 0-1 [facility] Bedside Glucoseon 06-14-2025 FINGERSTICK GLU 162 mg/dL High [facility] Comment on above: Result Comment: SHONNA GEMENT OF PATIENT CARE PER NURSING PROTOCOL Performed By: #### L 501.080 #### [facility] Laboratory [address] [place], [address] FINGERSTICK GLU 236 mg/dL High [facility] Comment on above: Result Comment: SHONNA GEMENT OF PATIENT CARE PER NURSING PROTOCOL Performed By: #### L 501.080 #### [facility] Laboratory [address] [place], [address] FINGERSTICK GLU 180 mg/dL [address] Comment on above: Result Comment: SHONNA GEMENT OF PATIENT CARE PER NURSING PROTOCOL Performed By: #### L 501.080 #### [facility] [address] [place], [address] FINGERSTICK GLU 120 mg/dL [address] Comment on above: Result Comment: SHONNA GEMENT OF PATIENT CARE PER NURSING PROTOCOL Performed By: #### L 501.080 #### [facility] [address] [place], [address] Bilirubin Test strip Ql (U)O rdered By: Homero Mendosa on 06-14-2025 Bilirubin Ql (U) Negative Negative [facility] Bilirubin, totalOrdered By: Homero Mendosa on 06-14-2025 Bilirubin [Mass/Vol] 0.51 mg/dL 0.00-1.30 [facility] CBC W/Diff, Automatedon 06-05 Absolute Lymph 2.09 X10 3/uL Normal 0.83-4.51 [facility] Comment on above: Performed By: #### L 501.080 #### [facility] Laboratory [address] [place], [address] Absolute Neut 9.5 X10 3/uL High 2.0-7.7 [facility] Comment on above: Performed By: #### L 501.080 #### [facility] Laboratory [address] [place], [address] Basophils/100 WBC (Bld) 0.5 % Normal 0-1 [facility] Comment on above: Performed By: #### L 501.080 #### [facility] [address] [place], [address] Eosinophils/100 WBC (Bld) 0.3 % Normal 0-5 [facility] Comment on above: Performed By: #### L 501.080 #### [facility] Laboratory [address] [place], [address] Erythrocyte distribution width (RBC) [Ratio] 14.0 % Normal 11.6-14.6 [facility] Comment on above: Performed By: #### L 501.080 #### [facility] Laboratory [address] [place], [address] Hematocrit (Bld) [Volume fraction] 30.2 % Low 37-47 [facility] Comment on above: Performed By: #### L 501.080 #### [facility] Laboratory [address] [place], [address] Hemoglobin (Bld) [Mass/Vol] 9.8 g/dL Low 12.0-15.0 [facility] Comment on above: Performed By: #### L 501.080 #### [facility] [address] [place], [address] IG% 0.300 Normal 0.0-0.9 [facility] Comment on above: Result Comment: IG% - Immature Granulocytes (promyelocytes, myelocytes and metamyelocytes) > 1% indicates that a LEFT SHIFT is Present. Performed By: #### L 501.080 #### [facility] [address] [place], [address] Lymphocytes/100 WBC (Bld) 16.9 % Low 19-41 [facility] Comment on above: Performed By: #### L 501.080 #### [facility] [address] [place], [address] MCH (RBC) [Entitic mass] 29.4 pg Normal 27.0-32.0 [facility] Comment on above: Performed By: #### L 501.080 #### [facility] [address] [place], [address] MCHC (RBC) [Mass/Vol] 32.5 g/dL Normal 32-36 [facility] Comment on above: Performed By: #### L 501.080 #### [facility] [address] [place], [address] MCV (RBC) [Entitic vol] 90.7 fL Normal 81-99 [facility] Comment on above: Performed By: #### L 501.080 #### [facility] [address] [place], [address] Monocytes/100 WBC (Bld) 4.9 % Normal 0-10 [facility] Comment on above: Performed By: #### L 501.080 #### [facility] [address] [place], [address] Neutrophils/100 WBC (Bld) 77.1 % High 47-70 [facility] Comment on above: Performed By: #### L 501.080 #### [facility] Laboratory [address] [place], [address] Nucleated RBC (Bld) [#/Vol] 0 10*3/uL Normal 0-5 [facility] Comment on above: Performed By: #### L 501.080 #### [facility] Laboratory [address] [place], [address] Platelet mean volume (Bld) [Entitic vol] 10.5 fL Normal 6.2-12.0 [facility] Comment on above: Performed By: #### L 501.080 #### [facility] Laboratory [address] [place], [address] Platelets (Bld) [#/Vol] 342 10*3/uL Normal 150-450 [facility] Comment on above: Performed By: #### L 501.080 #### [facility] Laboratory [address] [place], [address] RBC (Bld) [#/Vol] 3.33 10*6/uL Low 4.2-5.4 [facility] Comment on above: Performed By: #### L 501.080 #### [facility] [address] [place], [address] RDW SD 46.9 fl High 35.1-43.9 [facility] Comment on above: Performed By: #### L 501.080 #### [facility] Laboratory [address] [place], [address] WBC (Bld) [#/Vol] 12.3 10*3/uL High 4.4-11.0 [facility] Comment on above: Performed By: #### L 501.080 #### [facility] Laboratory [address] [place], [address] Carbon dioxide, total [Moles /volume] in Central venous bloodOrdered By: Homero Mendosa on 06-14-2025 CO2 [Moles/Vol] 17.1 mmol/L Low 21.0-32.0 [facility] Chest PA and Lateralon 06-14 Chest PA and Lateral [facility] Imaging Services [address] [place] [address] Chest PA and Lateral MR#: [id number] Acct: [id number] Name: CICI WOODWARD Rep #: [id number] : 1935 F 89 From: Therese Goss MD PCP: Dr. Anju Pearce MD Status: REG ER Study: Chest PA and Lateral Date of Exam: 06/14/25 Exam# [id number] Ordering Dr: Homero Mendosa MD PROCEDURE: CHEST PA AND LATERAL 06/14/2025 REASON FOR EXAM: WEAKNESS TECHNIQUE: CHEST PA AND LATERAL COMPARISON: XR chest PA and Lateral 05-Jan-2025 11:39 AM FINDINGS: LUNGS AND PLEURA: No focal airspace consolidation. No pleural effusion or pneumothorax. HEART AND MEDIASTINUM: The cardiac silhouette is mildly enlarged. The mediastinal contour is normal. 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 PULMONARY VESSELS: Mild prominence of the central pulmonary vasculature. BONES: No acute osseous abnormality. OTHER: Right upper abdominal surgical clips. The abdominal aorta is calcified. RAD/Chest PA and Lateral IMPRESSION: Cardiomegaly with mild vascular congestion. Reading Location: [facility] CC: Dr. Homero Mendosa MD; Dr. Anju Pearce MD Document Scanner: Signed Normal [facility] Chloride assayOrdered By: Cm Mendosa on 06-14-2025 Chloride [Moles/Vol] 105 mmol/L 98-108 [facility] Comprehensive Metabolic Prof ilon 06-14-2025 Albumin [Mass/Vol] 4.2 g/dL Normal 3.4-4.8 [facility] Comment on above: Performed By: #### L 501.080 #### [facility] [address] [place], [place], [id number] Albumin/Globulin [Mass ratio] 1.4 {ratio} Normal 0.9-2.4 [facility] Comment on above: Performed By: #### L 501.080 #### [facility] [address] [place], [place], [id number] ALK PHOS 94 U/L Normal 35-104 [facility] Comment on above: Performed By: #### L [id number] #### [facility] [address] [place], [address] ALT [Catalytic activity/Vol] 19 U/L Normal <=34 [facility] Comment on above: Performed By: #### L [id number] #### [facility] [address] [place], [address] AST [Catalytic activity/Vol] 23 U/L Normal <=31 [facility] Comment on above: Performed By: #### L [id number] #### [facility] [address] [place], [address] Bilirubin [Mass/Vol] 0.51 mg/dL Normal 0.00-1.30 [facility] Comment on above: Performed By: #### L 501.080 #### [facility] [address] [place], [address] BUN/CRE 21.4 RATIO High 10-20 [facility] Comment on above: Performed By: #### L 501.080 #### [facility] [address] [place], [address] Calcium [Mass/Vol] 9.5 mg/dL Normal 7.6-11.0 [facility] Comment on above: Performed By: #### L [id number] #### [facility] [address] [place], [address] Chloride [Moles/Vol] 105 mmol/L Normal 98-108 [facility] Comment on above: Performed By: #### L [id number] #### [facility] [address] [place], [address] CO2 [Moles/Vol] 17.1 mmol/L Low 21.0-32.0 [facility] Comment on above: Performed By: #### L [id number] #### [facility] [address] [place], [address] Creatinine [Mass/Vol] 2.46 mg/dL High 0.70-1.20 [facility] Comment on above: Performed By: #### L 501.080 #### [facility] [address] [place], [address] ECRCL 15.50 ml/min Low 50-250 [facility] Comment on above: Performed By: #### L 501.080 #### [facility] [address] [place], [address] GAP 15 Normal 5-15 [facility] Comment on above: Performed By: #### L 501.080 #### [facility] [address] [place], [address] GFR/1.73 sq M.predicted among non-blacks MDRD (S/P/Bld) [Vol rate/Area] 18 mL/min/{1.73_m2} Low >60 [facility] Comment on above: Result Comment: mL/m in/1.73m2 CKD-EPI Creatinine Equation (2020) Performed By: #### L 501.080 #### [facility] [address] [place], [address] Globulin (S) [Mass/Vol] 2.9 g/dL Normal 2.2-4.2 [facility] Comment on above: Performed By: #### L 501.080 #### [facility] [address] [place], [address] Glucose [Mass/Vol] 156 mg/dL High 70-99 [facility] Comment on above: Performed By: #### L 501.080 #### [facility] [address] [place], [address] Potassium [Moles/Vol] 4.7 mmol/L Normal 3.3-5.1 [facility] Comment on above: Performed By: #### L [id number] #### [facility] [address] [place], [address] Sodium [Moles/Vol] 136 mmol/L Normal 133-145 [facility] Comment on above: Performed By: #### L [id number] #### [facility] [address] [place], [address] T PROT 7.1 g/dL Normal 5.9-8.4 [facility] Comment on above: Performed By: #### L [id number] #### [facility] [address] [place], [place], [address] Urea nitrogen [Mass/Vol] 53 mg/dL High 4-19 [facility] Comment on above: Performed By: #### L 501.080 #### [facility] [address] [place], [place], [address] Emergency Department Summary on 06-14-2025 Emergency Department Summary [facility] Medical Records Department [address] [place] [address] Emergency Department Summary 06/14/25 MR#: [id number] Acct: [id number] Name: CICI WOODWARD Rep #: [id number] : 1935 89 From: Homero Mendosa MD PCP: Dr. Anju Pearce MD Status:REG ER Location: ED HPI History of Present Illness Chief Complaint: General Illness Detail of Chief Complaint: Just not feeling well. Informant: patient and family Onset/Context/Timing Onset: Weeks Context: Gradual Onset Timing: Continuous Current Severity: Mild Maximum Severity: Mild Narrative Narrative: 89-year-old female who is independently at home history of prior stroke, chronic kidney disease, diabetes, hypertension and prior ND with CABG. States she just feels generally weak. She was seen at the [facility] urgent care. Diagnosed with a possible UTI started on cephalexin 254 times a day for 5 days. But the urine culture came back negative. She finished the antibiotics because she was pretty far into the course. Denies currently any abdominal pain. No chest pain or shortness of breath. Denies any dysuria. She has had some mild diarrhea. Denies any melena. Prior similar symptoms: Yes Recent Illness/[facility] : [facility] Medical History 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 Bilateral renal cysts [...] Unknow n History tablet,extended release 24 hr insulin glargine 100 unit/mL (3 9 unit subcut DAILY 06/28/20 Unkno wn History mL) subcutaneous pen propylene glycol 0.6 % eye drops 1 drp ophthalmic (eye) DAILY PRN 0 06/28/20 Unknown History (Systane Balance) Dry Eyes losartan 50 mg tablet 50 mg PO QDAY 09/22/24 Unknown His tory amlodipine 10 mg tablet 10 mg PO QDAY 04/30/25 Unknown His tory insulin aspart U-100 100 unit/mL 7 unit subcut QAC dm 04/30/25 Unkn own History (3 mL) subcutaneous pen rosuvastatin 5 mg tablet 5 mg PO QDAY 04/30/25 Unknown Hist ory Allergy/AdvReac Type Severity Reaction Status Date / Time codeine AdvReac Nausea/Vom/ Verified 04/30/25 15:26 Diarrhea morphine AdvReac Nausea/Vom/ Verified 04/30/25 15:26 Diarrhea Family History Aunt Breast cancer Mother Heart disease Father Heart disease Surgical History History of cholecystectomy History of coronary artery bypass graft H/O angioplasty History of left heart catheterization tubal Social History number of children: 2 current occupational status: retired Smoking Status: Former smoker alcohol intake: never substance use type: does not use diet: diabetic caffeine: Yes Type: coffee Number of servings: 1 seatbelt use: always do you feel safe at home: Yes additional social history: 2 children adopted ROS ROS ED ROS Narrative Just not feeling well. Weakness. Denies nausea or vomiting. Denies fever. Denies dysuria. No cough or chest pain. No shortness of breath. No abdominal pain. Has had some diarrhea. Constitutional Constitutional ED: Denies chills or fever(s) Eyes Eyes: Denies blurry vision ENT ENT ED: Denies ear pain Cardiovascular Cardiovascular: Denies chest pain Respiratory/Chest Respiratory/Chest: Denies cough or dyspnea Gastrointestinal Gastrointestinal: Reports diarrhea; Denies abdominal pain, constipation, melena, nausea or vomiting Genitourinary Genitourinary ED: Denies dysuria or hematuria Musculoskeletal Musculoskeletal: Denies arthralgias Integumentary Denies abscess Neurologic Neurologic: Denies headache(s) Psychiatric Psychiatric: Den (more content not included)... Normal [facility] Eosinophil percentageOrdered By: Homero Mendosa on 06-14-2025 Eosinophils/100 WBC (Bld) 0.3 % 0-5 [facility] Erythrocyte distribution wid th ratioOrdered By: Homero Mendosa on 06-14-2025 Erythrocyte distribution width (RBC) [Ratio] 14.0 % 11.6-14.6 [facility] Erythrocyte distribution wid th standard deviationOrdered By: Homero Mendosa on 06-14-2025 Erythrocyte distribution width (RBC) [Ratio] 46.9 fl High 35.1-43.9 [facility] Glomerular filtration rate ( GFR) estimation/1.73 sq m using serum, plasma, or whole bOrdered By: Homero Mendosa on 06-14-2025 GFR/1.73 sq M.predicted among non-blacks MDRD (S/P/Bld) [Vol rate/Area] 18 mL/min/{1.73_m2} Low >60 [facility] Comment on above: mL/min/1.73m2 CKD-EP I Creatinine Equation (2020) [facility] deOrdered By: Homero Mendosa on 06-14-2025 Glucose [Mass/Vol] 120 mg/dL High 74-106 [facility] Comment on above: MANAGEMENT OF PATIEN T CARE PER NURSING PROTOCOL H AND P Exam - Hospitaliston 06-14-2025 H&P Exam - Hospitalist [facility] Medical Records Department [address] [place] [address] H P Exam - Hospitalist 06/14/25 1131 MR#: [id number] Acct: [id number] Name: CICI WOODWARD Rep #: [id number] : 1935 89 From: Ventura Ivy MD PCP: Dr. Anju Pearce MD Status:ADM IN Location: [facility]-0 HPI - General General Date of Admission: 06/14/25 Date of Service: 06/14/25 Chief Complaint: Generalized weakness HPI Narrative CICI WOODWARD, is a 89 F who presents generalized weakness. Patient has multiple comorbidities including coronary artery disease status post CABG, chronic kidney disease stage III presented to the emergency department with progressive generalized weakness. Per patient he had recently been treated for acute cystitis has not felt well since. Also did admit to decreased oral intake. Presented to the emergency department as a result found to have worsening kidney function admitted to regular nursing floor as a case of SHA [facility] Medical History 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 Bilateral renal cysts [...] Unknow n History tablet,extended release 24 hr propylene glycol 0.6 % eye drops 1 drp ophthalmic (eye) QHS Dry Eye s 06/28/20 Unknown History (Systane Balance) losartan 50 mg tablet 50 mg PO QDAY 09/22/24 Unknown His tory amlodipine 10 mg tablet 10 mg PO QDAY 04/30/25 Unknown His tory insulin aspart U-100 100 unit/mL 7 unit subcut QAC dm 04/30/25 Unkn own History (3 mL) subcutaneous pen rosuvastatin 5 mg tablet 5 mg PO QDAY 04/30/25 Unknown Hist ory insulin glargine-yfgn 100 unit/mL 14 unit subcut QHS 06/14/25 Unkno wn History (3 mL) subcutaneous pen Allergy/AdvReac Type Severity Reaction Status Date / Time codeine AdvReac Nausea/Vom/ Verified 04/30/25 15:26 Diarrhea morphine AdvReac Nausea/Vom/ Verified 04/30/25 15:26 Diarrhea Family History Aunt Breast cancer Mother Heart disease Father Heart disease Surgical History History of cholecystectomy History of coronary artery bypass graft H/O angioplasty History of left heart catheterization tubal Social History number of children: 2 current occupational status: retired Smoking Status: Former smoker alcohol intake: never substance use type: does not use diet: diabetic caffeine: Yes Type: coffee Number of servings: 1 seatbelt use: always do you feel safe at home: Yes additional social history: 2 children adopted ROS ROS Narrative GENERAL: Generalized weakness HEENT: denies headache, sinus congestion, or drainage, dysphagia RESPIRATORY: denies cough, sputum production, shortness of breath, CARDIAC: denies chest pain, palpitations, orthopnea, PND GASTROINTESTINAL: Nausea but no vomiting GENITOURINARY: denies dysuria, urgency, frequency, heamaturia EXTREMITY: denies swelling MUSCULOSKELETAL: denies current joint pain or tenderness NEUROLOGIC: denies focal numbness, weakness, tingling HEMATOLOGIC: denies easy bruising and/or hemorrhage INTEGUMENT: denies rashes PSYCHIATRIC: denies suicidal or homicidal ideation Vital Signs Vital Signs Vital Signs: 06/14/25 08:17 06/14/25 08:19 06/14/25 08:37 Temperature 98.6 F 98.6 F Temperature Source Temporal Oral Pulse Rate 74 74 Respiratory Rate 16 16 Respiratory Effort Normal Blood Pressure 145/83 H 145/83 H Blood Pressure Mean 103 103 Pulse Ox 96 96 Oxygen Delivery Method Room Air Room Air 06/14/25 09:19 06/14/25 10:19 06/14/25 11:00 Temperature 98.6 F 98 (more content not included)... Normal [facility] Hematocrit Auto (Bld) [Volum e fraction]Ordered By: Homero Mendosa on 06-14-2025 Hematocrit (Bld) [Volume fraction] 30.2 % Low 37-47 [facility] Hemoglobin measurementOrdere d By: Homero Mendosa on 06-14-2025 Hemoglobin (Bld) [Mass/Vol] 9.8 g/dL Low 12.0-15.0 [facility] Hyaline casts LM.LPF (Urine sed) [#/Area]Ordered By: Homero Mendosa on 06-14-2025 Hyaline casts (Urine sed) [#/Area] 0 /[LPF] 0-5 [facility] Immature granulocytes/100 WB C Auto (Bld)Ordered By: Homero Mendosa on 06-14-2025 Immature granulocytes/100 WBC (Bld) 0.300 % 0.0-0.9 [facility] Comment on above: IG% - Immature Granu locytes (promyelocytes, myelocytes and metamyelocytes) > 1% indicates that a LEFT SHIFT is Present. Ketones Test strip Ql (U)Ord ered By: Homero Mendosa on 06-14-2025 Ketones Ql (U) Negative Negative [facility] Laboratory - Chemistry and C hemistry - challengeOrdered By: Homero Mendosa on 06-14-2025 AST [Catalytic activity/Vol] 23 U/L <32 [facility] MCV (mean corpuscular volume ) determinationOrdered By: Homero Mendosa on 06-14-2025 MCV (RBC) [Entitic vol] 90.7 fL 81-99 [facility] Mean corpuscular hemoglobin (MCH) determinationOrdered By: Homero Mendosa on 06-14-2025 MCH (RBC) [Entitic mass] 29.4 pg 27.0-32.0 [facility] Mean corpuscular hemoglobin concentration (MCHC) determinationOrdered By: Homero Mendosa on 06-14-2025 MCHC (RBC) [Mass/Vol] 32.5 g/dL 32-36 [facility] Mean platelet volume determi nationOrdered By: Homero Mendosa on 06-14-2025 Platelet mean volume (Bld) [Entitic vol] 10.5 fL 6.2-12.0 [facility] Microscopic analysis of urin e for red blood cells (RBC)Ordered By: Homero Mendosa on 06-14-2025 Microscopic analysis of urine for red blood cells (RBC) 0-5 SEEN /hpf 0-5 [facility] Monocyte percentageOrdered B y: Homero Mendosa on 06-14-2025 Monocytes/100 WBC (Bld) 4.9 % 0-10 [facility] Mucus LM Ql (Urine sed)Order ed By: Homero Mendosa on 06-14-2025 Mucus Ql (Urine sed) 0 SEEN /hpf [facility] Neutrophil percentageOrdered By: Homero Mendosa on 06-14-2025 Neutrophils/100 WBC (Bld) 77.1 % High 47-70 [facility] Nitrite Test strip Ql (U)Ord ered By: Homero Mendosa on 06-14-2025 Nitrite Ql (U) Negative Negative [facility] Nucleated red blood cell per centageOrdered By: Homero Mendosa on 06-14-2025 Nucleated RBC/100 WBC (Bld) [Ratio] 0 % 0- [facility] Platelet countOrdered By: Cm Mendosa on 06-14-2025 Platelets (Bld) [#/Vol] 342 10*3/uL 150-450 [facility] Potassium measurement (mass/ volume)Ordered By: Homero Mendosa on 06-14-2025 Potassium (Unsp spec) [Mass/Vol] 4.7 mmol/L 3.3-5.1 [facility] Protein Test strip Ql (U)Ord ered By: Homero Mendosa on 06-14-2025 Protein Ql (U) 500 mg/dl High Negative [facility] RBC Auto (Bld) [#/Vol]Ordere d By: Homero Mendosa on 06-14-2025 RBC (Bld) [#/Vol] 3.33 10*6/uL Low 4.2-5.4 [facility] Serum creatinine measurement (mass/volume)Ordered By: Homero Mendosa on 06-14-2025 Creatinine [Mass/Vol] 2.46 mg/dL High 0.70-1.20 [facility] Serum globulin measurementOr dered By: Homero Mendosa on 06-14-2025 Globulin (S) [Mass/Vol] 2.9 g/dL 2.2-4.2 [facility] Serum glucose measurement (m ass/volume)Ordered By: Homero Mendosa on 06-14-2025 Glucose [Mass/Vol] 156 mg/dL High 70-99 [facility] Serum or plasma alanine balbuena otransferase (ALT) measurementOrdered By: Homero Mendosa on 06-14-2025 ALT [Catalytic activity/Vol] 19 U/L <35 [facility] Serum or plasma albumin anita urement (mass/volume)Ordered By: Homero Mendosa on 06-14-2025 Albumin [Mass/Vol] 4.2 g/dL 3.4-4.8 [facility] Serum or plasma albumin/glob ulin mass ratioOrdered By: Homero Mnedosa on 06-14-2025 Albumin/Globulin [Mass ratio] 1.4 {ratio} 0.9-2.4 [facility] Serum or plasma alkaline abdoul sphatase measurementOrdered By: Homero Mendosa on 06-14-2025 ALP [Catalytic activity/Vol] 94 U/L 35-104 [facility] Serum or plasma calcium anita urement (mass/volume)Ordered By: Homero Mendosa on 06-14-2025 Calcium [Mass/Vol] 9.5 mg/dL 7.6-11.0 [facility] Serum or plasma urea nitroge n measurement (mass/volume)Ordered By: Homero Mendosa on 06-14-2025 Urea nitrogen [Mass/Vol] 53 mg/dL High 4-19 [facility] Sodium levelOrdered By: Homero Mendosa on 06-14-2025 Sodium [Moles/Vol] 136 mmol/L 133-145 [facility] Squamous epithelial cells de tection in urine sediment by light microscopyOrdered By: Homero Mendosa on 06-14-2025 Epithelial cells.squamous LM Ql (Urine sed) 0-5 SEEN /hpf -10 [facility] Total proteinOrdered By: Tk Mendosa on 06-14-2025 Protein [Mass/Vol] 7.1 g/dL 5.9-8.4 [facility] Urinalysis, Completeon 06-14 CAST,HYALINE 0-5 SEEN Normal 0-5 [facility] Comment on above: Order Comment: CLEAN CATCH Performed By: #### L [id number] #### [facility] [address] [place], [address] EPI,SQUAMOUS 0-5 SEEN Normal -10 [facility] Comment on above: Order Comment: CLEAN CATCH Performed By: #### L [id number] #### [facility] [address] [place], [address] RBC 0-5 SEEN Normal 0-5 [facility] Comment on above: Order Comment: CLEAN CATCH Performed By: #### L [id number] #### [facility] [address] [place], [address] WBC 0-5 SEEN Normal 0-[address] [place] [address] Comment on above: Order Comment: CLEAN CATCH Performed By: #### L [id number] #### [facility] [address] [place], [address] BACTERIA 0 SEEN Normal None Seen [facility] Comment on above: Order Comment: CLEAN CATCH Performed By: #### L 501.080 #### [facility] [address] [place], [address] Mucus Ql (Urine sed) 0 SEEN Normal [facility] Comment on above: Order Comment: CLEAN CATCH Performed By: #### L 501.080 #### [facility] [address] [place], [address] Urine clarityOrdered By: Tk Mendosa on 06-14-2025 Clarity (U) Clear Clear [facility] Urine color determinationOrd ered By: Homero Mendosa on 06-14-2025 Color (U) Yellow Yellow [facility] Urine glucose detectionOrder ed By: Homero Mendosa on 06-14-2025 Glucose Ql (U) 100 mg/dl High Normal [facility] Urine leukocyte esterase det ection by dipstickOrdered By: Homero Mendosa on 06-14-2025 Leukocyte esterase Test strip Ql (U) Negative Negative [facility] Urine pHOrdered By: Homero castro on 06-14-2025 pH (U) 6.0 [pH] 5.0 - 8.0 [facility] Urine sediment bacteria coun t by microscopy (number/high power field)Ordered By: Homero Mendosa on 06-14-2025 Bacteria LM.HPF (Urine sed) [#/Area] 0 /[HPF] None Seen [facility] Urine specific gravity measu rementOrdered By: Homero Mendosa on 06-14-2025 Specific gravity (U) [Rel density] 1.020 1.002-1.030 [facility] Urine urobilinogen measureme ntOrdered By: Homero Mendosa on 06-14-2025 Urobilinogen Ql (U) Normal mg/dl Normal [facility] White blood cell (WBC) count Ordered By: Homero Mendosa on 06-14-2025 WBC (Bld) [#/Vol] 12.3 10*3/uL High 4.4-11.0 [facility] White blood cell countOrdere d By: Homero Mendosa on 06-14-2025 White blood cell count 0-5 SEEN /hpf 0-5 [facility] Bacteria Ur Culton Bacteria identified Cx Nom (U) CULTURE, URINE: Mixed microbiota, including predominantly: ORGANISM ID: 1 50,000-<100,000 CFU/ml Streptococcus anginosus No susceptibility testing done. Normal [facility] Comment on above: Performed By: #### 6 30-4 ####[facility] [id number] [place] [address] [place] CNOVon 06-02-2025 CNOV Office Visit (WOUCA) CICI WOODWARD I ([id number]) 1935 F Date Time Provider Department 06/02/25 10:00 AM CLEMENT CORTES During your visit today, we recorded the following information about you: Temperature Pulse Respiration Blood pressure 97 degrees 72/minute 16/minute 124/66 Weight 74.9 kg Clement Cortes APRN.[facility] 06/02/2025 10:21 AM Signed URGENT CARE [facility]ENVITOR Martin Cici Woodward is a 89 year old female. [...] other causes of hematuria. and Recording using [employer] software for draft documentation of the visit was discussed with the patient/authorized sales representative public utilities; all questions welcomed and answered. Patient/authorized sales representative public utilities agreed to proceed MDM Procedures Allergies As of Date: 06/02/2025 Noted Allergy Reaction BACTRIM (SULFAMETHOXAZOLE-TRIME TH*06/10/2008 11 - Vomiting CODEINE 08/31/2005 11 - Vomiting FARXIGA (DAPAGLIFLOZIN) 09/12/2024 8 - GI Upset PREDNISONE 09/05/2012 11 - Vomiting STATINS ([id number] REDUCTAS*05/25/2009 5 - Intolerance ULTRAM (TRAMADOL HCL) 01/17/2013 11 - Vomiting Date Reviewed: 05/14/2025 Reviewed by: Ishmael Davis APRN.TRANSCRIPT EVALUATOR - Fully Assessed Reason for Visit: Pelvic Pain [282] Cmt: pressure x 3 days Primary Visit Diagnosis:Pelvic pain [R10.2] Other Visit Diagnosis:Hematuria, unspecified type [R31.9] Order(s):UA DIP, URINE (POC) [1651860] Order #: [id number]. #:[id number] BACTERIAL CULTURE, URINE [SQURCUL] Order #: [id number]. #:[id number] cephALEXin (KEFLEX) 250 mg capsuleTake 1 capsule [...] 3 times daily Insulin Yes - Insulin [place], Disposable, (BD ULTRA-FINE JOHN PEN NEEDLE) 32 [...] included)... Normal [facility] UA DIP, URINE (POC)on 2024 BILIRUBIN UA (POCT) Negative Negative [facility] CLARITY UA (POCT) Clear [facility] COLOR UA (POCT) Yellow [facility] GLUCOSE UA (POCT) 100 mg/dL Abnormal Negative [facility] Hemoglobin Ql (U) Trace-intact Abnormal Negative [facility] Interpretation and review of laboratory results Abnormal [facility] KETONE UA (POCT) Negative Negative mg/dL [facility] LEUKOCYTES UA (POCT) Negative [facility] NITRITE UA (POCT) Negative Negative [facility] PH UA (POCT) 5.5 4.5 - 8.0 [facility] Protein Ql (U) >=300 Abnormal Negative mg/dL [facility] SPECIFIC GRAVITY UA (POCT) 1.025 1.005 - 1.030 [facility] UROBILINOGEN UA (POCT) 0.2 Tricia l E.U./dL [facility] Location: [place], [address] [facility], [place], [address] [facility] POINT OF CARE [facility] CNOVon 05-14-2025 CNOV Office Visit (INTMWS ) CICI WOODWARD I ([id number]) 1935 F Date Time Provider Department 05/14/25 1:40 PM ISHMAEL DAVIS INTMWS During your visit today, we recorded the following information about you: Pulse Blood pressure Weight Height 69/minute 152/77 74.8 kg 1.565 m Ishmael Davis APRN.TRANSCRIPT EVALUATOR 05/14/2025 2:06 PM Addendum Latest Ref Rng [...] review all the medicines you take, even ufor-gdr-fopdpxb medicines. As you get older, the way [...] if you have certain medical conditions. Ishmael Davis, ALCIRA.TRANSCRIPT EVALUATOR 07/03/2025 3:20 PM Addendum Cici Woodward is a 89 year old female [...] included)... Normal [facility] 25([place])D3 [facility]-yuridia 2024 25-hydroxyvitamin D3 [Mass/Vol] 36.0 ng/mL Normal 31.0-80.0 [facility] Comment on above: Order Comment: Luis Armando schaffer Type: BLOOD SPECIMEN Ordering Facility: [facility] Address: [address] [place] [address] Result Comment: Clas sification of 25 [place] Vitamin D status: Deficiency/Insufficiency: < or = 30 ng/ml. Sufficiency/Optimal Levels: 31-80 ng/mL Toxicity: > 100 ng/mL. Test performed by chemiluminescent immunoassay. Performed By: #### 5 5454-3 #### [facility] CLIA [id number] [address] [place] [address] [place] ALBUMIN/CREATININE RATIO, UR INEon 05-13-2025 Albumin DL <= 20 mg/L (U) [Mass/Vol] 1451.0 mg/L Normal [facility] Comment on above: Order Comment: Luis Armando schaffer Type: BLOOD SPECIMEN Ordering Facility: [facility] Address: [address] [place] [address] Performed By: #### 5 5454-3 #### [facility] CLIA [id number] [address] [place] [address] [place] Albumin/Creatinine (U) [Mass ratio] 1742 mg/g High <30 [facility] Comment on above: Order Comment: Luis Armando schaffer Type: BLOOD SPECIMEN Ordering Facility: [facility] Address: [address] [place] [address] Result Comment: Adul t Male and Female Nephrotic Criteria: <30 mg/g is considered normal to mildly increased 30-300 mg/g is considered moderately increased >300 mg/g is considered severely increased KDIGO. (2013). KDIGO 2012 Clinical Practice Guideline for the Evaluation and Management of Chronic Kidney Disease. Official Journal of the International Society of Nephrology, 3(1), 1-150. Performed By: #### 5 5454-3 #### [facility] CLIA [id number] [address] [place] [address] [place] Creatinine (U) [Mass/Vol] 83.3 mg/dL Normal 20.0-300.0 [facility] Comment on above: Order Comment: Speci men Type: BLOOD SPECIMEN Ordering Facility: [facility] Address: [address] [place] [address] Performed By: #### 5 5454-3 #### [facility] CLIA [id number] [address] [place] [address] [place] CBC panel Auto (Bld)on 05-13 Erythrocyte distribution width (RBC) [Ratio] 14.0 % Normal 11.5-15.0 [facility] Comment on above: Order Comment: Speci men Type: BLOOD SPECIMEN Ordering Facility: [facility] Address: [address] [place] [address] Performed By: #### 5 5454-3 #### [facility] CLIA [id number] [address] [place] [address] [place] Hematocrit (Bld) [Volume fraction] 32.0 % Low 36.0-46.0 [facility] Comment on above: Order Comment: Speci men Type: BLOOD SPECIMEN Ordering Facility: [facility] Address: [address] [place] [address] Performed By: #### 5 5454-3 #### [facility] CLIA [id number] [address] [place] [address] [place] Hemoglobin (Bld) [Mass/Vol] 10.6 g/dL Low 11.5-15.5 [facility] Comment on above: Order Comment: Speci men Type: BLOOD SPECIMEN Ordering Facility: [facility] Address: [address] [place] [address] Performed By: #### 5 5454-3 #### [facility] CLIA [id number] [address] [place] [address] [place] MCH (RBC) [Entitic mass] 30.3 pg Normal 26.0-34.0 [facility] Comment on above: Order Comment: Speci men Type: BLOOD SPECIMEN Ordering Facility: [facility] Address: [address] [place] [address] Performed By: #### 5 5454-3 #### [facility] CLIA [id number] [address] [place] [address] [place] MCHC (RBC) [Mass/Vol] 33.1 g/dL Normal 30.5-36.0 [facility] Comment on above: Order Comment: Speci men Type: BLOOD SPECIMEN Ordering Facility: [facility] Address: [address] [place] [address] Performed By: #### 5 5454-3 #### [facility] CLIA [id number] [address] [place] [address] [place] MCV (RBC) [Entitic vol] 91.4 fL Normal 80.0-100.0 [facility] Comment on above: Order Comment: Speci men Type: BLOOD SPECIMEN Ordering Facility: [facility] Address: [address] [place] [address] Performed By: #### 5 5454-3 #### [facility] CLIA [id number] [address] [place] [address] [place] Nucleated RBC (Bld) [#/Vol] 10*3/uL Normal <0.01 [facility] Comment on above: Order Comment: Speci men Type: BLOOD SPECIMEN Ordering Facility: [facility] Address: [address] [place] [address] Performed By: #### 5 5454-3 #### [facility] CLIA [id number] [address] [place] [address] [place] Platelet mean volume (Bld) [Entitic vol] 11.5 fL Normal 9.0-12.7 [facility] Comment on above: Order Comment: Speci men Type: BLOOD SPECIMEN Ordering Facility: [facility] Address: [address] [place] [address] Performed By: #### 5 5454-3 #### [facility] CLIA [id number] [address] [place] [address] [place] Platelets (Bld) [#/Vol] 255 10*3/uL Normal 150-400 [facility] Comment on above: Order Comment: Speci men Type: BLOOD SPECIMEN Ordering Facility: [facility] Address: [address] [place] [address] Performed By: #### 5 5454-3 #### [facility] CLIA [id number] [address] [place] [address] [place] RBC (Bld) [#/Vol] 3.50 10*6/uL Low 3.90-5.20 [facility] Comment on above: Order Comment: Speci men Type: BLOOD SPECIMEN Ordering Facility: [facility] Address: [address] [place] [address] Performed By: #### 5 5454-3 #### [facility] CLIA [id number] [address] [place] [address] [place] WBC (Bld) [#/Vol] 8.07 10*3/uL Normal 3.70-11.00 [facility] Comment on above: Order Comment: Speci men Type: BLOOD SPECIMEN Ordering Facility: [facility] Address: [address] [place] [address] Performed By: #### 5 5454-3 #### [facility] CLIA [id number] [address] [place] [address] [place] Comprehensive metabolic 2000 panelon 05-13-2025 Albumin [Mass/Vol] 4.2 g/dL Normal 3.9-4.9 [facility] Comment on above: Order Comment: Speci men Type: BLOOD SPECIMEN Ordering Facility: [facility] Address: [address] [place] [address] Performed By: #### 5 5454-3 #### [facility] CLIA [id number] [address] [place] [address] [place] ALP [Catalytic activity/Vol] 92 U/L Normal 34-123 [facility] Comment on above: Order Comment: Speci men Type: BLOOD SPECIMEN Ordering Facility: [facility] Address: [address] [place] [address] Performed By: #### 5 5454-3 #### [facility] CLIA [id number] [address] [place] [address] [place] ALT [Catalytic activity/Vol] 16 U/L Normal 7-38 [facility] Comment on above: Order Comment: Speci men Type: BLOOD SPECIMEN Ordering Facility: [facility] Address: [address] [place] [address] Performed By: #### 5 5454-3 #### [facility] CLIA [id number] [address] [place] [address] [place] Anion gap [Moles/Vol] 14 mmol/L Normal 8-15 [facility] Comment on above: Order Comment: Speci men Type: BLOOD SPECIMEN Ordering Facility: [facility] Address: [address] [place] [address] Performed By: #### 5 5454-3 #### [facility] CLIA [id number] [address] [place] [address] [place] AST [Catalytic activity/Vol] 15 U/L Normal 13-35 [facility] Comment on above: Order Comment: Speci men Type: BLOOD SPECIMEN Ordering Facility: [facility] Address: [address] [place] [address] Performed By: #### 5 5454-3 #### [facility] CLIA [id number] [address] [place] [address] [place] Bilirubin [Mass/Vol] 0.4 mg/dL Normal 0.2-1.3 [facility] Comment on above: Order Comment: Speci men Type: BLOOD SPECIMEN Ordering Facility: [facility] Address: [address] [place] [address] Performed By: #### 5 5454-3 #### [facility] CLIA [id number] [address] [place] [address] [place] Calcium [Mass/Vol] 9.7 mg/dL Normal 8.5-10.2 [facility] Comment on above: Order Comment: Speci men Type: BLOOD SPECIMEN Ordering Facility: [facility] Address: [address] [place] [address] Performed By: #### 5 5454-3 #### [facility] CLIA [id number] [address] [place] [address] [place] Chloride [Moles/Vol] 106 mmol/L Normal 98-107 [facility] Comment on above: Order Comment: Speci men Type: BLOOD SPECIMEN Ordering Facility: [facility] Address: [address] [place] [address] Performed By: #### 5 5454-3 #### [facility] CLIA [id number] [address] [place] [address] [place] CO2 [Moles/Vol] 18 mmol/L Low 22-30 [facility] Comment on above: Order Comment: Speci men Type: BLOOD SPECIMEN Ordering Facility: [facility] Address: [address] [place] [address] Performed By: #### 5 5454-3 #### [facility] CLIA [id number] [address] [place] [address] [place] Creatinine [Mass/Vol] 2.29 mg/dL High 0.58-0.96 [facility] Comment on above: Order Comment: Speci men Type: BLOOD SPECIMEN Ordering Facility: [facility] Address: [address] [place] [address] Performed By: #### 5 5454-3 #### [facility] CLIA [id number] [address] [place] [address] [place] Creatinine and Glomerular filtration rate.predicted panel (S/P/Bld) 20 mL/min/1.73m??? Low >=60 [facility] Comment on above: Order Comment: Luis Armando schaffer Type: BLOOD SPECIMEN Ordering Facility: [facility] Address: [address] [place] [address] Result Comment: Kathie mated Glomerular Filtration Rate [...] accurately reflect actual GFR. Performed By: #### 5 5454-3 #### [facility] CLIA [id number] [address] [place] [address] [place] Glucose [Mass/Vol] 125 mg/dL High 74-99 [facility] Comment on above: Order Comment: Luis Armando schaffer Type: BLOOD SPECIMEN Ordering Facility: [facility] Address: [address] [place] [address] Result Comment: The [place] Diabetes Association (ADA) provides guidance for cutoff [...] Standards of Medical Care in Diabetes 2016, [place] Diabetes Association. Diabetes Care. 2016.39(Suppl 1). Performed By: #### 5 5454-3 #### [facility] CLIA [id number] [address] [place] [address] [place] Potassium [Moles/Vol] 4.6 mmol/L Normal 3.7-5.1 [facility] Comment on above: Order Comment: Luis Armando schaffer Type: BLOOD SPECIMEN Ordering Facility: [facility] Address: [address] [place] [address] Performed By: #### 5 5454-3 #### [facility] CLIA [id number] [address] [place] [address] [place] Protein [Mass/Vol] 7.4 g/dL Normal 6.3-8.0 [facility] Comment on above: Order Comment: Speci men Type: BLOOD SPECIMEN Ordering Facility: [facility] Address: [address] [place] [address] Performed By: #### 5 5454-3 #### [facility] CLIA [id number] [address] [place] [address] [place] Sodium [Moles/Vol] 138 mmol/L Normal 136-144 [facility] Comment on above: Order Comment: Speci men Type: BLOOD SPECIMEN Ordering Facility: [facility] Address: [address] [place] [address] Performed By: #### 5 5454-3 #### [facility] CLIA [id number] [address] [place] [address] [place] Urea nitrogen [Mass/Vol] 56 mg/dL High 7-21 [facility] Comment on above: Order Comment: Speci men Type: BLOOD SPECIMEN Ordering Facility: [facility] Address: [address] [place] [address] Performed By: #### 5 5454-3 #### [facility] CLIA [id number] [address] [place] [address] [place] HbA1c (Bld)on 05-13-2025 Average glucose Estimated from glycated hemoglobin (Bld) [Mass/Vol] 166 mg/dL Normal [facility] Comment on above: Order Comment: Speci men Type: BLOOD SPECIMEN Ordering Facility: [facility] Address: [address] [place] [address] Result Comment: eAG: (Estimated average glucose) is a calculated value from HgbA1c and is sales representative public utilities of the average blood glucose level in the last 2-3 month period. Performed By: #### 5 5454-3 #### [facility] CLIA [id number] [address] [place] [address] [place] HbA1c (Bld) [Mass fraction] 7.4 % High 4.3-5.6 [facility] Comment on above: Order Comment: Luis Armando men Type: BLOOD SPECIMEN Ordering Facility: [facility] Address: [address] [place] [address] Result Comment: Amer ican Diabetes Association guidelines indicate that patients with HgbA1c in the range 5.7-6.4% are at increased risk for development of diabetes, and intervention by lifestyle modification may be beneficial. HgbA1c greater or equal to 6.5% is considered diagnostic of diabetes. Performed By: #### 5 5454-3 #### [facility] CLIA [id number] [address] [place] [address] [place] Lipid 1996 panelon 5 Cholesterol [Mass/Vol] 138 mg/dL Normal <200 [facility] Comment on above: Order Comment: Luis Armando men Type: BLOOD SPECIMEN Ordering Facility: [facility] Address: [address] [place] [address] Result Comment: <200 mg/dL, Desirable 200-239 mg/dL, Borderline high >239 mg/dL, High Performed By: #### 5 5454-3 #### [facility] CLIA [id number] [address] [place] [address] [place] Cholesterol in HDL [Mass/Vol] 51 mg/dL Normal >39 [facility] Comment on above: Order Comment: Luis Armando men Type: BLOOD SPECIMEN Ordering Facility: [facility] Address: [address] [place] [address] Result Comment: 40-5 9 mg/dL, Acceptable >59 mg/dL, High: Negative risk factor for coronary heart disease <40 mg/dL, Low: Positive risk factor for coronary heart disease Performed By: #### 5 5454-3 #### [facility] CLIA [id number] [address] [place] [address] [place] Cholesterol in LDL [Mass/Vol] 67 mg/dL Normal <100 [facility] Comment on above: Order Comment: Luis Armando schaffer Type: BLOOD SPECIMEN Ordering Facility: [facility] Address: [address] [place] [address] Result Comment: <100 mg/dL, Optimal 100-129 mg/dL, Near optimal/above optimal 130-159 mg/dL, Borderline high 160-189 mg/dL, High >189 mg/dL, Very high Secondary prevention optimal LDL Cholesterol levels are recommended to be <70 mg/dL LDL cholesterol is calculated using the Stafford-NIH equation. Performed By: #### 5 5454-3 #### [facility] CLIA [id number] [address] [place] [address] STATES [facility] Cholesterol in LDL/Cholesterol in HDL [Mass ratio] 1.31 {ratio} Normal <2.54 [facility] Comment on above: Order Comment: Luis Armando schaffer Type: BLOOD SPECIMEN Ordering Facility: [facility] Address: [address] [place] [address] Result Comment: Earnest stuart: 1. National Cholesterol Education Program ATP III Guideline At-A-Glance Quick Desk Reference: National Heart, Lung, and Blood Stirum. National Institutes of Health. 2001: NIH Publication No. 01-3305. 2. An International Atherosclerosis Society position paper: global recommendations for the management of dyslipidemia: executive summary, Atherosclerosis. 2014: 232(2):410-413. Performed By: #### 5 5454-3 #### [facility] CLIA [id number] [address] [place] [address] [place] Cholesterol in VLDL [Mass/Vol] 16 mg/dL Normal <30 [facility] Comment on above: Order Comment: Luis Armando schaffer Type: BLOOD SPECIMEN Ordering Facility: [facility] Address: [address] [place] [address] Performed By: #### 5 5454-3 #### [facility] CLIA [id number] [address] [place] [address] [place] Cholesterol non HDL [Mass/Vol] 87 mg/dL Normal <130 [facility] Comment on above: Order Comment: Speci men Type: BLOOD SPECIMEN Ordering Facility: [facility] Address: [address] [place] [address] Result Comment: <130 mg/dL, Optimal 130-159 mg/dL, Near optimal/above optimal 160-189 mg/dL, Borderline high 190-219 mg/dL, High >219 mg/dL, Very high Secondary prevention optimal non HDL Cholesterol levels are recommended to be <100 mg/dL Performed By: #### 5 5454-3 #### [facility] CLIA [id number] [address] [place] [address] [place] Cholesterol.total/Clau sterol in HDL [Mass ratio] 2.71 {ratio} Normal <5.10 [facility] Comment on above: Order Comment: Speci men Type: BLOOD SPECIMEN Ordering Facility: [facility] Address: [address] [place] [address] Performed By: #### 5 5454-3 #### [facility] CLIA [id number] [address] [place] [address] [place] FASTING TIME 9 hrs Normal [facility] Comment on above: Order Comment: Speci men Type: BLOOD SPECIMEN Ordering Facility: [facility] Address: [address] [place] [address] Performed By: #### 5 5454-3 #### [facility] CLIA [id number] [address] [place] [address] [place] Triglyceride [Mass/Vol] 110 mg/dL Normal <150 [facility] Comment on above: Order Comment: Speci men Type: BLOOD SPECIMEN Ordering Facility: [facility] Address: [address] [place] [address] Result Comment: <150 mg/dL, Normal 150-199 mg/dL, Borderline high 200-499 mg/dL, High >499 mg/dL, Very high Performed By: #### 5 5454-3 #### [facility] CLIA [id number] [address] [place], [place] [address] [id number] [place] Urate SerPl-mCncon 5 Urate [Mass/Vol] 6.1 mg/dL Normal 2.5-6.6 [facility] Comment on above: Order Comment: Speci men Type: BLOOD SPECIMEN Ordering Facility: [facility] Address: [address] [place] [address] Performed By: #### 5 5454-3 #### [facility] CLIA [id number] [address] [place], [place] [address] [id number] [place] Cardiology Visit Reporton Cardiology Visit Report [facility] [place] [id number] [place] [address] OFFICE VISIT Date of Service: 04/30/25 MR#: [id number] Acct: [id number] Name: CICI WOODWARD Rep #: [id number] : 1935 Provider: RANDY Silverio Age/Sex: 89/F Location: [facility] Status: Signed HPI HPI History of Present Illness Details: Cici Woodward is an 89-year-old female that presents here today for a cardiovascular follow-up. She was last to see us in the office in 2001. She has a history of coronary artery disease requiring bypass surgery. On January 09, 2020 she underwent a four-vessel bypass at [facility]. (GHOSH to diagonal sequenced to LAD, SVG to OM sequenced to RPL). Patient was found to have an EF of around 30% when she had presented with ND. This has since resolved. She has CKD and her lisinopril was discontinued due to rise in creatinine. She does not have any worsening SOB, orthopnea. She does not have any problems with her ADLS. She does go to [employer]. She does go three times a week [...] Source Monitor Intake Visit Reasons: 6 M FU Cancer Spec Required: No Accompanied by: Daughter Allergies codeine Adverse Reaction (Verified 04/30/25 15:26) Nausea/Vom/Diarrhea morphine Adverse Reaction (Verified 04/30/25 15:26) Nausea/Vom/Diarrhea Medications ???Medication ???Instructions ???Recorded ???Confirmed ???Type allopurinol 100 mg tablet 100 mg PO DAILYCM gout 04/28/14 History aspirin 81 mg chewable tablet 81 mg PO DAILY heart 01/17/2004/06 History calcium carbonate-vitamin D3 600 1 ea [...] Medical History 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 Bilateral renal cysts [...] problems Neuro (more content not included)... Normal [facility] 04-21-2025 [facility] Telephone (INTMWS) CICI WOODWARD I ([id number]) 1935 F Date Time Provider Department 04/21/25 ANJU PEARCE INTDirkWS During your visit today, we recorded the following information about you: Esthela Linder, RN 04/21/2025 9:58 AM Signed Pt called [...] Upset PREDNISONE 09/05/2012 11 - Vomiting STATINS (OYXOBGO-BJG-PEC REDUCTAS*05/25/2009 5 - Intolerance ULTRAM (TRAMADOL HCL) 01/17/2013 11 - Vomiting Date Reviewed: 02/19/2025 Reviewed by: Susana Harry LPN - Fully Assessed Reason for Visit: Patient Question [1477] Prescriptions as of 04/21/2025 - losartan (COZAAR) [...] 3 times daily Insulin Yes - Insulin [place], Disposable, (BD ULTRA-FINE JOHN PEN NEEDLE) 32 [...] (HCC) [N18.32 (more content not included)... Normal [facility]2025 [facility] CICI WOODWARD I ([id number]) 1935 F Date Time Provider Department 04/01/25 ANJU PEARCE INTMWS During your visit today, we recorded the following information about you: Kami Mccain, RN 04/01/2025 9:45 AM Signed Patient has contacted [facility] to transfer 2 of her medication [...] Upset PREDNISONE 09/05/2012 11 - Vomiting STATINS (VCYGIIT-ZIV-PLX REDUCTAS*05/25/2009 5 - Intolerance ULTRAM (TRAMADOL HCL) [...] 3 times daily Insulin Yes - Insulin [place], Disposable, (BD ULTRA-FINE JOHN PEN NEEDLE) 32 [...] [H69.90] 08/30/2009 02/22/2015 Diverticulosis [K57.90] 08/16/2012 02/22/2015 Hi (more content not included)... Normal [facility] NT-proBNP [facility] 02-27 Natriuretic peptide.B prohormone N-Terminal [Mass/Vol] 4351 pg/mL High <450 [facility] Comment on above: Order Comment: Speci men Type: BLOOD SPECIMEN Ordering Facility: [facility] Address: [address] [place] [address] Performed By: #### 5 5454-3 #### [facility] CLIA [id number] [address] [place], [place] [address] [address] [place] XR CHEST 2V [...] and small left pleural effusion since 02/19/2025 Document Scanner: KURT Transcribe Date/Time: Feb 27 2025 10:17A Dictated by : SHARIFA BRO MD This examination was interpreted and the report reviewed and electronically signed by: SHARIFA BRO MD on Feb 27 2025 10:19AM EST [id number] Normal [facility] CNOVon 02-19-2025 CNOV Office Visit (INTMWS ) TRACECICI Gema ([id number]) 1935 F Date Time Provider Department 02/19/25 12:00 PM ISHMAEL DAVIS INTMWS During your visit today, we recorded the following information about you: Pulse Respiration Blood pressure Weight 80/minute 16/minute 163/69 76.8 kg Ishmael Davis APRN.TRANSCRIPT EVALUATOR 02/19/2025 12:40 PM Signed SUBJECTIVE: LDL Cholesterol [...] History of CAD s/p CAB, followed by [facility]. Currently without symptomatic complaints. Recent cardiology visit 01/2025. Stopped Plavix. 6 month follow up. Labs [facility] 01/2025, BUN 42 Cr. 1.95 [...] lancets ( (more content not included)... Normal [facility] CNOV Office Visit (WSTR ) CICI WOODWARD I ([id number]) 1935 F Date Time Provider Department 02/19/25 9:[address] [facility] During your visit today, we recorded the following information about you: Temperature Pulse Respiration Blood pressure 97 degrees 83/minute 18/minute 159/70 Weight 76.8 kg Caridad Anglin APRN.COLLAR SEPARATOR 02/19/2025 10:02 AM Signed [facility] Subjective Cici Woodward is a 89 year old female. [...] history is provided by the patient. No electronic instrument trades worker was used. Wheezing This is a new [...] hypercholesterolemia S/P CABG x 3 01/09/2020 @ [facility] by Dr. Rivera Stroke (cerebrum) ([facility]) 2014 Type II or unspecified type diabetes mellitus without mention of complication, uncontrolled Unspecified cardiovascular disease Unspecified essential hypertension Urgency of urination 2008 PAST SURGICAL HISTORY Procedure Laterality Date ANGIOPLASTY 1988 CABG (3) VEIN GRAFTS AND ARTERIAL GRAFT(S) 01/09/2020 @ [facility] by Dr. Rivera COLONOSCOPY FLX DX W/COLLJ SPEC WHEN PFRMD 08/29/07 LAPAROSCOPY SURG CHOLECYSTECTOMY Cholecystectomy, lap LEFT HEART CATH,CUTDOWN 1991 PAST SURGICAL HISTORY OF Tubal ALLERGIES Bactrim [Sulfamethoxazole-Trime thoprim], Codeine, Farxiga [Dapagliflozin], Prednisone, Statins [Hhnggwz-Xsx-Apn Reductase Inhibitors], and Ultram [Tramadol Hcl] MEDICATIONS [...] 1 tablet by mouth once daily. Insulin [place], Disposable, (BD ULTRA-FINE JOHN PEN NEEDLE) 32 [...] included)... Normal [facility] XR CHEST 2V FRONTAL/LATon XR CHEST 2V [...] mild interstitial edema with trace pleural effusions. Document Scanner: KURT Transcribe Date/Time: Feb 19 2025 9:31A Dictated by : ALONZO LAGUNAS MD This examination was interpreted and the report reviewed and electronically signed by: ALONZO LAGUNAS MD on Feb 19 2025 9:32AM EST [id number] Normal [facility] XR Chest PA and Lateralon IMPRESSION: Findings most suggestive of mild interstitial edema with trace pleural effusions. Document Scanner: KURT Transcribe Date/Time: Feb 19 2025 9:31A Dictated by : ALONZO LAGUNAS MD This examination was interpreted and the report reviewed and electronically signed by: ALONZO LAGUNAS MD on Feb 19 2025 9:32AM [facility] DIVISION OF RADIOLOGY * * *Final Report* [...] the upper abdomen. DIVISION OF RADIOLOGY Provider, [facility] - 02/19/2025 * * *Final Report* * [...] mild interstitial edema with trace pleural effusions. Document Scanner: PSCB Transcribe Date/Time: Feb 19 2025 9:31A Dictated by : ALONZO LAGUNAS MD This examination was interpreted and the report reviewed and electronically signed by: ALONZO LAGUNAS MD on Feb 19 2025 9:32AM EST [facility] Radiology Study observation (narrative) Lars mcdonald [facility] XR Chest PA and LateralOrder ed By: [facility] Provider on 02-19-2025 [facility] CNOVon 01-16-2025 CNOV Office Visit (INTMWS ) CICI WOODWARD I ([id number]) 1935 F Date Time Provider Department 01/16/25 1:00 PM ANJU PEARCE INTMWS During your visit today, we recorded the following information about you: Temperature Pulse Respiration Blood pressure 97 degrees 80/minute 16/minute 150/80 Weight Height 73.8 kg 1.565 m Anju Pearce MD 01/16/2025 2:02 PM Signed This note was created using [employer]. Subjective Cici Woodward is a 89 year old female. HISTORY Cici Woodward is a 89 year old lady here for yearly exam and follow up appointment. Has HCDPOA but the one on file needs updated. First surrogate decision maker is son, Miguel Pollard; second is daughter, Araceli Carlos. 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 Rivera Stroke (cerebrum) ([facility]) 2013 Type II or unspecified type diabetes [...] by mouth once daily as directed Insulin [place], Disposable, (BD ULTRA-FINE JOHN PEN NEEDLE) 32 [...] included)... Normal [facility] Absolute lymphocyte countOrd ered By: Brionna Malin on 01-05-2025 Lymphocytes Auto (Unsp spec) [#/Vol] 2.43 10*3/uL 0.83-4.51 [facility] Absolute neutrophil countOrd ered By: Brionna Malin on 01-05-2025 Neutrophils (Bld) [#/Vol] 4.0 10*3/uL 2.0-7.7 [facility] Automated lymphocyte count a s percentage of total leukocytesOrdered By: Brionna Malin on 01-05-2025 Lymphocytes/100 WBC Auto (Unsp spec) 35.0 % 19- [facility] BUN/creatinine ratioOrdered By: Brionna Malin on 01-05-2025 Urea nitrogen/Creatinine [Mass ratio] 21.5 mg/mg High 10-20 [facility] Basic Metabolic Profile (BMP )on 01-05-2025 Anion gap [Moles/Vol] 13 mmol/L Normal 5-15 [facility] Comment on above: Performed By: #### L 501.080 #### [facility] Laboratory [address] [place], [address] BUN/CRE 21.5 RATIO High 10-20 [facility] Comment on above: Performed By: #### L 501.080 #### [facility] [address] [place], [address] Calcium [Mass/Vol] 9.1 mg/dL Normal 7.6-11.0 [facility] Comment on above: Performed By: #### L 501.080 #### [facility] [address] [place], [address] Chloride [Moles/Vol] 105 mmol/L Normal 96-108 [facility] Comment on above: Performed By: #### L 501.080 #### [facility] [address] [place], [address] CO2 [Moles/Vol] 18.9 mmol/L Low 22.0-29.0 [facility] Comment on above: Performed By: #### L 501.080 #### [facility] [address] [place], [address] Creatinine [Mass/Vol] 1.95 mg/dL High 0.70-1.20 [facility] Comment on above: Performed By: #### L 501.080 #### [facility] [address] [place], [address] ECRCL 20.25 ml/min Low 50-250 [facility] Comment on above: Performed By: #### L 501.080 #### [facility] [address] [place], [address] GFR/1.73 sq M.predicted among non-blacks MDRD (S/P/Bld) [Vol rate/Area] 24 mL/min/{1.73_m2} Low >60 [facility] Comment on above: Result Comment: mL/m in/1.73m2 CKD-EPI Creatinine Equation (2020) Performed By: #### L 501.080 #### [facility] [address] [place], [address] Glucose [Mass/Vol] 197 mg/dL High 70-99 [facility] Comment on above: Performed By: #### L 501.080 #### [facility] [address] [place], [address] Potassium [Moles/Vol] 4.1 mmol/L Normal 3.3-5.1 [facility] Comment on above: Performed By: #### L 501.080 #### [facility] [address] [place], [address] Sodium [Moles/Vol] 137 mmol/L Normal 133-145 [facility] Comment on above: Performed By: #### L 501.080 #### [facility] [address] [place], [address] Urea nitrogen [Mass/Vol] 42 mg/dL High 4-19 [facility] Comment on above: Performed By: #### L 501.080 #### [facility] [address] [place], [address] Basophil percentageOrdered B y: Brionna Noriegastewart on 01-05-2025 Basophils/100 WBC (Bld) 0.3 % 0-1 [facility] CBC W/Diff, Automatedon Absolute Lymph 2.43 X10 3/uL Normal 0.83-4.51 [facility] Comment on above: Performed By: #### L 501.080 #### [facility] [address] [place], [address] Absolute Neut 4.0 X10 3/uL Normal 2.0-7.7 [facility] Comment on above: Performed By: #### L 501.080 #### [facility] [address] [place], [address] Basophils/100 WBC (Bld) 0.3 % Normal 0-1 [facility] Comment on above: Performed By: #### L 501.080 #### [facility] [address] [place], [address] Eosinophils/100 WBC (Bld) 0.3 % Normal 0-5 [facility] Comment on above: Performed By: #### L 501.080 #### [facility] [address] [place], [address] Erythrocyte distribution width (RBC) [Ratio] 13.3 % Normal 11.6-14.6 [facility] Comment on above: Performed By: #### L 501.080 #### [facility] [address] [place], [address] Hematocrit (Bld) [Volume fraction] 35.8 % Low 37-47 [facility] Comment on above: Performed By: #### L 501.080 #### [facility] [address] [place], [address] Hemoglobin (Bld) [Mass/Vol] 11.6 g/dL Low 12.0-15.0 [facility] Comment on above: Performed By: #### L 501.080 #### [facility] [address] [place], [address] IG% 0.300 Normal 0.0-0.9 [facility] Comment on above: Result Comment: IG% - Immature Granulocytes (promyelocytes, myelocytes and metamyelocytes) > 1% indicates that a LEFT SHIFT is Present. Performed By: #### L 501.080 #### [facility] [address] [place], [address] Lymphocytes/100 WBC (Bld) 35.0 % Normal 19-41 [facility] Comment on above: Performed By: #### L 501.080 #### [facility] [address] [place], [address] MCH (RBC) [Entitic mass] 29.6 pg Normal 27.0-32.0 [facility] Comment on above: Performed By: #### L 501.080 #### [facility] [address] [place], [address] MCHC (RBC) [Mass/Vol] 32.4 g/dL Normal 32-36 [facility] Comment on above: Performed By: #### L 501.080 #### [facility] [address] [place], [address] MCV (RBC) [Entitic vol] 91.3 fL Normal 81-99 [facility] Comment on above: Performed By: #### L 501.080 #### [facility] [address] [place], [address] Monocytes/100 WBC (Bld) 7.2 % Normal 0-10 [facility] Comment on above: Performed By: #### L 501.080 #### [facility] [address] [place], [address] Neutrophils/100 WBC (Bld) 56.9 % Normal 47-70 [facility] Comment on above: Performed By: #### L 501.080 #### [facility] [address] [place], [address] Nucleated RBC (Bld) [#/Vol] 0 10*3/uL Normal 0-5 [facility] Comment on above: Performed By: #### L 501.080 #### [facility] [address] [place], [address] Platelet mean volume (Bld) [Entitic vol] 11.1 fL Normal 6.2-12.0 [facility] Comment on above: Performed By: #### L 501.080 #### [facility] [address] [place], [address] Platelets (Bld) [#/Vol] 228 10*3/uL Normal 150-450 [facility] Comment on above: Performed By: #### L 501.080 #### [facility] [address] [place], [address] RBC (Bld) [#/Vol] 3.92 10*6/uL Low 4.2-5.4 [facility] Comment on above: Performed By: #### L 501.080 #### [facility] [address] [place], [address] RDW SD 44.8 fl High 35.1-43.9 [facility] Comment on above: Performed By: #### L 501.080 #### [facility] [address] [place], [address] WBC (Bld) [#/Vol] 6.9 10*3/uL Normal 4.4-11.0 [facility] Comment on above: Performed By: #### L 501.080 #### [facility] [address] [place], [address] Carbon dioxide measurementOr dered By: Brionna Malin on 01-05-2025 CO2 [Moles/Vol] 18.9 mmol/L Low 22.0-29.0 [facility] Chest PA and Lateralon 01-05 Chest PA and Lateral [facility] Imaging Services [address] [place] [address] Chest PA and Lateral MR#: [id number] Acct: [id number] Name: CICI WOODWARD Rep #: [id number] : 1935 F 89 From: Isidro Lynn MD PCP: Dr. Anju Pearce MD Status: REG ER Study: Chest PA and Lateral Date of Exam: 01/05/25 Exam# [id number] Ordering Dr: Brionna Malin EXAM: XR Chest, 2 Views CLINICAL INDICATION: TECHNIQUE: Frontal and lateral views of the chest. COMPARISON: No relevant prior studies available. FINDINGS: LUNGS AND PLEURAL SPACES: Unremarkable. No consolidation. No pneumothorax. HEART: Unremarkable. No cardiomegaly. MEDIASTINUM: Unremarkable. Normal mediastinal contour. BONES/JOINTS: Unremarkable. No acute fracture. RAD/Chest PA and Lateral IMPRESSION: No acute cardiopulmonary process. Reading [facility] CC: Dr. Anju Pearce MD; RANDY Hinds Document Scanner: Signed Normal [facility] Chloride measurementOrdered By: Brionna Malin on 01-05-2025 Chloride [Moles/Vol] 105 mmol/L 96-108 [facility] Emergency Department Summary on 01-05-2025 Emergency Department Summary [facility] Medical Records Department [address] [place] [address] Emergency Department Summary 01/05/25 MR#: [id number] Acct: [id number] Name: CICI WOODWARD Rep #: [id number] : 1935 89 From: Igor Wells DO PCP: Dr. Anju Pearce MD Status:[facility] ER Location: ED Patient was seen and examined with physician assistant principal Brionna All components of the history and [...] care and [facility]. She is encouraged return with [...] denies chest pain or shortness of breath. [facility] Medical History 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 Bilateral renal cysts [...] eye drops (more content not included)... Normal [facility] Eosinophil percentageOrdered By: Brionna Malin on 01-05-2025 Eosinophils/100 WBC (Bld) 0.3 % 0-5 [facility] Erythrocyte distribution wid th ratioOrdered By: Brionna Malin on 01-05-2025 Erythrocyte distribution width (RBC) [Ratio] 13.3 % 11.6-14.6 [facility] Erythrocyte distribution wid th standard deviationOrdered By: Brionna Malin on 01-05-2025 Erythrocyte distribution width (RBC) [Ratio] 44.8 fl High 35.1-43.9 [facility] Glomerular filtration rate ( GFR) estimation/1.73 sq m using serum, plasma, or whole bOrdered By: Brionna Malin on 01-05-2025 GFR/1.73 sq M.predicted among non-blacks MDRD (S/P/Bld) [Vol rate/Area] 24 mL/min/{1.73_m2} Low >60 [facility] Comment on above: mL/min/1.73m2 CKD-EP I Creatinine Equation (2020) Hematocrit Auto (Bld) [Volum e fraction]Ordered By: Brionna Malin on 01-05-2025 Hematocrit (Bld) [Volume fraction] 35.8 % Low 37-47 [facility] Hemoglobin measurementOrdere d By: Brionna Malin on 01-05-2025 Hemoglobin (Bld) [Mass/Vol] 11.6 g/dL Low 12.0-15.0 [facility] Immature granulocytes/100 WB C Auto (Bld)Ordered By: Brionna Malin on 01-05-2025 Immature granulocytes/100 WBC (Bld) 0.300 % 0.0-0.9 [facility] Comment on above: IG% - Immature Granu locytes (promyelocytes, myelocytes and metamyelocytes) > 1% indicates that a LEFT SHIFT is Present. Influenza virus A and B and SARS-CoV-2 (COVID-19) and Respiratory syncytial virus RNAOrdered By: Brionna Malin on 01-05-2025 SARS-CoV-2 (COVID-19) RNA MARIS+probe Ql (Unsp spec) Influenzae A Abnormal [facility] M100.678on 01-05-2025 SARS-CoV-2 (COVID-19) Ab IA Ql Normal Reference Range = Negative FLUABV+SARS-CoV-2+RSV Pnl Resp MARIS+probe GeneXpert Instrument, PCR method FLUABV+SARS-CoV-2+RSV Pnl Resp MARIS+probe RESULTS CALLED TO RITA Rebolledo 01/05/25 1245 Eulalia Villalta. REPORT READ BACK . Copy of report sent to Infection Control Printer MS#[id number] 01/05/25 Lisa3 ELSI. SARS-CoV-2 (COVID 19) Negative INFLUENZA A A Positive A INFLUENZA B Negative RSV PCR Negative INFLUENZAE A Normal [facility] Comment on above: Performed By: #### L 501.080 #### [facility] [address] [place] [address], [address] MCV (mean corpuscular volume ) determinationOrdered By: Brionna Malin on 01-05-2025 MCV (RBC) [Entitic vol] 91.3 fL 81-99 [facility] Mean corpuscular hemoglobin (MCH) determinationOrdered By: Brionna Malin on 01-05-2025 MCH (RBC) [Entitic mass] 29.6 pg 27.0-32.0 [facility] Mean corpuscular hemoglobin concentration (MCHC) determinationOrdered By: Brionna Malin on 01-05-2025 MCHC (RBC) [Mass/Vol] 32.4 g/dL 32-36 [facility] Mean platelet volume determi nationOrdered By: Brionna Malin on 01-05-2025 Platelet mean volume (Bld) [Entitic vol] 11.1 fL 6.2-12.0 [facility] Monocyte percentageOrdered B y: Brionna Malin on 01-05-2025 Monocytes/100 WBC (Bld) 7.2 % 0-10 [facility] Neutrophil percentageOrdered By: Brionna Malin on 01-05-2025 Neutrophils/100 WBC (Bld) 56.9 % 47-70 [facility] Nucleated red blood cell per centageOrdered By: Brionna Malin on 01-05-2025 Nucleated RBC/100 WBC (Bld) [Ratio] 0 % 0-5 [facility] Platelet countOrdered By: Martita Malin on 01-05-2025 Platelets (Bld) [#/Vol] 228 10*3/uL 150-450 [facility] RBC Auto (Bld) [#/Vol]Ordere d By: Brionna Malin on 01-05-2025 RBC (Bld) [#/Vol] 3.92 10*6/uL Low 4.2-5.4 [facility] Serum creatinine measurement (mass/volume)Ordered By: Brionna Malin on 01-05-2025 Creatinine [Mass/Vol] 1.95 mg/dL High 0.70-1.20 [facility] Serum glucose measurement (m ass/volume)Ordered By: Brionna Malin on 01-05-2025 Glucose [Mass/Vol] 197 mg/dL High 70-99 [facility] Serum or plasma anion gap de termination (moles/volume)Ordered By: Brionna Malin on 01-05-2025 Anion gap [Moles/Vol] 13 mmol/L 5-15 [facility] Serum or plasma calcium anita urement (mass/volume)Ordered By: Brionna Malin on 01-05-2025 Calcium [Mass/Vol] 9.1 mg/dL 7.6-11.0 [facility] Serum or plasma potassium me asurementOrdered By: Brionna Dea on 01-05-2025 Potassium [Moles/Vol] 4.1 mmol/L 3.3-5.1 [facility] Serum or plasma sodium measu rement (moles/volume)Ordered By: Brionna Malin on 01-05-2025 Sodium [Moles/Vol] 137 mmol/L 133-145 [facility] Serum or plasma urea nitroge n measurement (mass/volume)Ordered By: Brionnarach Malin on 01-05-2025 Urea nitrogen [Mass/Vol] 42 mg/dL High 4-19 [facility] White blood cell (WBC) count Ordered By: Brionnarach Malin on 01-05-2025 WBC (Bld) [#/Vol] 6.9 10*3/uL 4.4-11.0 [facility] Echo Completeon 10-23-2024 Echo Complete [facility] [address] [place] [address] Echo Complete 10/23/24 1250 MR#: [id number] Acct: [id number] Name: CICI WOODWARD Rep #: [id number] : 1935 89 From: Harris Kessler MD Attending Dr: RANDY Zamudio Status: REG CLI Ordering Dr: Marika George Date: 10/05 07/29 Location: [facility] Sex: F C Admitted: Reason For Study: [...] sec Doppler Measurements Calculations MV E max sidra: 103.8 cm/sec Lat Peak E' Sidra: 6.5 [...] Anju Pearce M.D. Performed By: Therese Adams RDCS 10/23/24 1402 Date Harris Kessler MD CC: Dr. Anju Pearce MD; RANDY Zamudio Date Dictated: 10/23/24 1250 Date Transcribed: 10/23/24 1402 Document Scanner: Signed Normal [facility] Cardiology Visit Reporton Cardiology Visit Report [facility] [address] [place] [address] OFFICE VISIT Date of Service: 09/22/24 MR#: [id number] Acct: [id number] Name: CICI WOODWARD Rep #: [id number] : 1935 Provider: RANDY Silverio Age/Sex: 89/F Location: [facility] Status: Signed HPI HPI History of Present Illness Details: Cici Woodward is an 89-year-old female that presents here today for a cardiovascular follow-up. She was last to see us in the office in 2001. She has a history of coronary artery disease requiring bypass surgery. On January 09, 2020 she underwent a four-vessel bypass at [facility]. (GHOSH to diagonal sequenced to LAD, SVG to OM sequenced to RPL). Patient was found to have an EF of around 30% when she had presented with ND. This has since resolved. She has CKD and her lisinopril was discontinued due to rise in creatinine. She does not have any worsening SOB, orthopnea. She does not have any problems with her ADLS. She does go to [employer]. She does go three times a week for 30 minutes, She does not have any chest pain. She does not palpitations. She does not have any edema. Primary care doctor was concerned about elevated BT CDL [employer] which prompted office visit today. Intake Vital Signs 10/03/22 13:54 09/22/24 14:43 09/22/24 14:44 Height 5 ft 3 in 5 ft 3 in 5 ft 3 in Weight: 169 lb BMI 29.9 BP 143/67 H Blood Pressure Location Lt brachial Position Sitting Respiration 18 Pulse 74 Pulse Source Monitor Pulse Oximetry (%) 97 Intake Visit Reasons: OVERDUE FOR F/U/LAST SEEN 11/26 Cancer Spec Required: No Is patient in pain?: No [...] Medical History 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 Bilateral renal cysts [...] None Mus (more content not included)... Normal [facility] Basic metabolic 2000 panelon 09-12-2024 Anion gap [Moles/Vol] 14 mmol/L Normal 8-15 [facility] Comment on above: Order Comment: Speci men Type: BLOOD SPECIMENOrdering Facility: [facility] Address: [address] [place] [address] Performed By: #### 2 4321-2, 29258-9 ####[facility] [id number] [place] [address] [place] Calcium [Mass/Vol] 9.4 mg/dL Normal 8.5-10.2 [facility] Comment on above: Order Comment: Speci men Type: BLOOD SPECIMENOrdering Facility: [facility] Address: [address] [place] [address] Performed By: #### 2 4321-2, 05102-9 ####[facility] [id number] [place] [address] [place] Chloride [Moles/Vol] 106 mmol/L Normal 98-107 [facility] Comment on above: Order Comment: Speci men Type: BLOOD SPECIMENOrdering Facility: [facility] Address: [address] [place] [address] Performed By: #### 2 4321-2, 31798-8 ####[facility] [id number] [place] [address] [place] CO2 [Moles/Vol] 18 mmol/L Low 22-30 [facility] Comment on above: Order Comment: Speci men Type: BLOOD SPECIMENOrdering Facility: [facility] Address: [address] [place] [address] Performed By: #### 2 4321-2, 65957-9 ####[facility] [id number] [place] [address] [place] Creatinine [Mass/Vol] 2.20 mg/dL High 0.58-0.96 [facility] Comment on above: Order Comment: Speci men Type: BLOOD SPECIMENOrdering Facility: [facility] Address: [address] [place] [address] Performed By: #### 2 4321-2, 61045-0 ####[facility] [id number] [place] [address] [place] Creatinine and Glomerular filtration rate.predicted panel (S/P/Bld) 21 mL/min/1.73m??? Low >=60 [facility] Comment on above: Order Comment: Speci men Type: BLOOD SPECIMENOrdering Facility: [facility] Address: [address] [place] [address] Result Comment: Kathie mated Glomerular Filtration Rate [...] accurately reflect actual GFR. Performed By: #### 2 4321-2, 05726-9 ####[facility] [id number] [place] [address] [place] Glucose [Mass/Vol] 162 mg/dL High 74-99 [facility] Comment on above: Order Comment: Speci men Type: BLOOD SPECIMENOrdering Facility: [facility] Address: [address] [place] [address] Result Comment: The [place] Diabetes Association (ADA) provides guidance for cutoff [...] Standards of Medical Care in Diabetes 2016, [place] Diabetes Association. Diabetes Care. 2016.39(Suppl 1). Performed By: #### 2 4321-2, 06691-2 ####[facility] [id number] [place] [address] [place] Potassium [Moles/Vol] 5.5 mmol/L High 3.7-5.1 [facility] Comment on above: Order Comment: Speci men Type: BLOOD SPECIMENOrdering Facility: [facility] Address: [address] [place] [address] Performed By: #### 2 4321-2, 51914-0 ####[facility] [id number] [place] [address] [place] Sodium [Moles/Vol] 138 mmol/L Normal 136-144 [facility] Comment on above: Order Comment: Speci men Type: BLOOD SPECIMENOrdering Facility: [facility] Address: [address] [place] [address] Performed By: #### 2 4321-2, 69878-7 ####[facility] [id number] [place] [address] [place] Urea nitrogen [Mass/Vol] 53 mg/dL High 7-21 [facility] Comment on above: Order Comment: Speci men Type: BLOOD SPECIMENOrdering Facility: [facility] Address: [address] [place] [address] Performed By: #### 2 4321-2, 97360-9 ####[facility] [id number] [place] [address] [place] CNOVon 09-12-2024 CNOV Office Visit (INTMWS ) CICI WOODWARD I ([id number]) 1935 F Date Time Provider Department 09/12/24 1:00 PM ISHMAEL DAVIS INTMWS During your visit today, we recorded the following information about you: Pulse Respiration Blood pressure Weight 80/minute 16/minute 150/67 78 kg Ishmael Davis APRN.TRANSCRIPT EVALUATOR 09/18/2024 7:49 AM Addendum SUBJECTIVE: Covid-19 Vaccine( season) due on 07/06/2024 PK Woodward is a 89 year old [...] History of CAD s/p CAB, followed by [facility]. Currently without symptomatic complaints. Reports [...] included)... Normal [facility] HbA1c (Bld)on 09-12-2024 Average glucose Estimated from glycated hemoglobin (Bld) [Mass/Vol] 174 mg/dL Normal [facility] Comment on above: Order Comment: Speci men Type: BLOOD SPECIMEN [facility] Address: [address] [place] [address] Result Comment: eAG: (Estimated average glucose) is a calculated value from HgbA1c and is sales representative public utilities of the average blood glucose level in the last 2-3 month period. Performed By: #### 5 5454-3 #### [facility] CLIA [id number] [address] [place] [address] [place] HbA1c (Bld) [Mass fraction] 7.7 % High 4.3-5.6 [facility] Comment on above: Order Comment: Luis Armando schaffer Type: BLOOD SPECIMEN [facility] Address: [address] [place] [address] Result Comment: Charis ican Diabetes Association guidelines indicate that patients with HgbA1c in the range 5.7-6.4% are at increased risk for development of diabetes, and intervention by lifestyle modification may be beneficial. HgbA1c greater or equal to 6.5% is considered diagnostic of diabetes. Performed By: #### 5 5454-3 #### [facility] CLIA [id number] [address] [place] [address] [place] NT-proBNP [facility] 09-12 Natriuretic peptide.B prohormone N-Terminal [Mass/Vol] 3739 pg/mL High <450 [facility] Comment on above: Order Comment: Luis Armando schaffer Type: BLOOD SPECIMENOrdering Facility: [facility] Address: [address] [place] [address] Performed By: #### 2 4321-2, 03554-8 ####[facility] [id number] [place] [address] [place] ALBUMIN/CREAT RATIO RND URon 08-25-2023 Albumin DL <= 20 mg/L (U) [Mass/Vol] 2962.6 mg/L [facility] Albumin/Creatinine (U) [Mass ratio] 2190 mg/g High <30 mg/g [facility] Creatinine (U) [Mass/Vol] 135.3 mg/dL 20.0 - 300.0 mg/dL [facility] VITAMIN D 25 HYDROXYon 08-25 25-hydroxyvitamin D3 [Mass/Vol] 38.2 ng/mL 31.0 - 80.0 ng/mL [facility] CBC panel Auto (Bld)on 08-24 Erythrocyte distribution width (RBC) [Ratio] 13.8 % 11.5 - 15.0 % [facility] Hematocrit (Bld) [Volume fraction] 38.4 % 36.0 - 46.0 % [facility] Hemoglobin (Bld) [Mass/Vol] 12.4 g/dL 11.5 - 15.5 g/dL [facility] MCH (RBC) [Entitic mass] 30.1 pg 26.0 - 34.0 pg [facility] MCHC (RBC) [Mass/Vol] 32.3 g/dL 30.5 - 36.0 g/dL [facility] MCV (RBC) [Entitic vol] 93.2 fL 80.0 - 100.0 fL [facility] Nucleated RBC (Bld) [#/Vol] <0.01 k/uL [facility] Platelet mean volume (Bld) [Entitic vol] 11.0 fL 9.0 - 12.7 fL [facility] Platelets (Bld) [#/Vol] 263 10*3/uL 150 - 400 k/uL [facility] RBC (Bld) [#/Vol] 4.12 10*6/uL 3.90 - 5.2 0 m/uL [facility] WBC (Bld) [#/Vol] 10.64 10*3/uL 3.70 - 11 .00 k/uL [facility] Comprehensive metabolic 2000 panelon 08-24-2023 Albumin [Mass/Vol] 4.0 g/dL 3.9 - 4.9 g/dL [facility] ALP [Catalytic activity/Vol] 99 U/L 34 - 123 U/L [facility] ALT [Catalytic activity/Vol] 15 U/L 7 - 38 U/L [facility] Anion gap [Moles/Vol] 13 mmol/L 9 - 18 mmol/L [facility] AST [Catalytic activity/Vol] 16 U/L 13 - 35 U/L [facility] Bilirubin [Mass/Vol] 0.2 mg/dL 0.2 - 1 .3 mg/dL [facility] Calcium [Mass/Vol] 9.1 mg/dL 8.5 - 10. 2 mg/dL [facility] Chloride [Moles/Vol] 104 mmol/L 97 - 10 5 mmol/L [facility] CO2 [Moles/Vol] 20 mmol/L Low 22 - 30 mmol/L [facility] Creatinine [Mass/Vol] 1.75 mg/dL High 0.58 - 0.96 mg/dL [facility] Estimated Glomerular Filtration Rate 28 mL/min/1.73m Low >=60 mL/min/1.73m [facility] Glucose [Mass/Vol] 158 mg/dL High 74 - 99 mg/dL [facility] Potassium [Moles/Vol] 4.1 mmol/L 3.7 - 5.1 mmol/L [facility] Protein [Mass/Vol] 6.4 g/dL 6.3 - 8.0 g/dL [facility] Sodium [Moles/Vol] 137 mmol/L 136 - 144 mmol/L [facility] Urea nitrogen [Mass/Vol] 39 mg/dL High 7 - 21 mg/dL [facility] HbA1c (Bld)on 08-24-2023 Average glucose Estimated from glycated hemoglobin (Bld) [Mass/Vol] 177 mg/dL [facility] HbA1c (Bld) [Mass fraction] 7.8 % High 4.3 - 5.6 % [facility] URIC ACID BLOODon 08-24-2023 Urate [Mass/Vol] 6.5 mg/dL 2.5 - 6.6 mg/dL [facility] Basophil percentageon 2021 Creatinine [Mass/Vol] 1.3 mg/dL 0.55-1.02 [facility] Work Phone: Laboratory - Chemistry and C hemistry - challengeon 07-24-2022 GFR/1.73 sq M.predicted among non-blacks MDRD (S/P/Bld) [Vol rate/Area] 41.0000 mL/min/{1.73_m2} >60 [facility] Work Phone: Cytology report of Body flui d Cyto stainon 06-28-2022 Cytology report Cyto stain Doc (Body fld) SEE PATHOLOGY REPORT [facility] Work Phone: Comment on above: Specimen submitted t o Anatomical Pathology Department for testing. UA DIP, URINE (POC)on 2021 BILIRUBIN UA (POCT) Negative Negative [facility] CLARITY UA (POCT) Slightly Cloudy Cl [facility] COLOR UA (POCT) Other [facility] GLUCOSE UA (POCT) 500 mg/dL Abnormal Negative mg/dL [facility] HEMOGLOBIN/BLOOD UA (POCT) Large Abnormal Negative [facility] KETONE UA (POCT) Negative Negative mg/dL [facility] LEUKOCYTES UA (POCT) Small Abnormal Negative [facility] NITRITE UA (POCT) Negative Negative [facility] PH UA (POCT) 6.0 4.5 - 8.0 [facility] Protein Ql (U) >=300 Abnormal Negative mg/dL [facility] SPECIFIC GRAVITY UA (POCT) 1.020 1.005 - 1.030 [facility] UROBILINOGEN UA (POCT) 0.2 E.U./dL Tricia l E.U./dL [facility] OBSOLETEon 04-25-2020 OBSOLETE Refill (AGVASACC) CICI WOODWARD I ([id number]) 1935 F Date Time Provider Department 04/25/20 MELISA REZA (PARTY BUS DRIVER, COLLAR SEPARATOR) AGVASACC During your visit today, we recorded the following information about you: Allergies As of Date: 04/25/2020 Noted Allergy Reaction BACTRIM (SULFAMETHOXAZOLE-TRIME TH*06/10/2008 11 - Vomiting CODEINE 08/31/2005 11 - Vomiting PREDNISONE 09/05/2012 11 - Vomiting STATINS ([id number] REDUCTAS*05/25/2009 5 - Intolerance ULTRAM (TRAMADOL HCL) [...] Status:Closed by YUNG MARSHALL CNP on 04/26/20 [facility] OBSOLETEon 03-24-2020 OBSOLETE Refill (AGVASACC) TRACECICI I ([id number]) 1935 F Date Time Provider Department 03/24/20 MELISA REZA (PARTY BUS DRIVER, COLLAR SEPARATOR) AGVASACC During your visit today, we recorded the following information about you: Allergies As of Date: 03/24/2020 Noted Allergy Reaction BACTRIM (SULFAMETHOXAZOLE-TRIME TH*06/10/2008 11 - Vomiting CODEINE 08/31/2005 11 - Vomiting PREDNISONE 09/05/2012 11 - Vomiting STATINS ([id number] REDUCTAS*05/25/2009 5 - Intolerance ULTRAM (TRAMADOL HCL) [...] Status:Closed by MELISA REZA CNP on 03/24/20 [facility] PROGRESSon 03-01-2020 PROGRESS HNO ID: [id number] Author: Philip (Alcira Das) DAYANA Lanier Service: ? Author Type: Nurse Practitioner Type: Progress Notes Filed: 03/01/2020 2:05 PM Note Text: [facility] Resendiz Department of Cardiovascular Medicine Virtual Video Visit ESTABLISHED Date: 03/01/2020 Patient: Cici Woodward : 1935 This is a virtual video visit. It required patient-provider interaction for the medical decision making as documented below. Cici Woodward has consented to this telephone encounter. HPI: Cici Woodward is a 84 year old female [...] with RVR (no OAC) and discharged to [facility] acute rehabilitation and finally home. PAST [...] - S/P CABG x 3 01/09/2020 @ [facility] by Dr. 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 Rivera - COLONOSCOP W/ OR W/O [facility] SPEC 08/29/07 - LAPAROSCOPIC CHOLEYCYSTECTOMY Cholecystectomy, [...] Drop in both eyes twice daily. - [place]-3 Fatty Acids 1,250 mg cap Take 1 [...] [Tramadol Hc* Vomiting REVIEW OF SYSTEMS: Today, Cici Woodward, reports She was released from home care today. All is normal except for right ankle remains swollens Pain: Denie CV: (Dizzy, palpitations, BP, Edema) 118/62, HR regular SOB/MURRAY: Denies Fever: Denies Incisions: Healed Weight: 163 and stable (reports baseline 165 lbs) Diet: Improving appetitie Bowel: Normal Activity: Gradually increasing C/O: None Cardiology F/U: Dr Noel at [facility] Scheduled 03/03 Cardiac Rehab: Ordered previously and may begin when ready PHYSICAL EXAMINATION: VIDEO EXAM: (if completed, performed via video enabled technology) N/A for telephone visit ASSESSMENT: Ms. Woodward is a 84 year old female status post CABG ?4, recovering quite well. 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 She may begin cardiac rehabilitation [...] drive -May begin cardiac rehabilitation when available Philip Lanier APRN.DAYANA Torres spent (Est Level 3) 13-19 minutes in total time involved in the care of this patient. Philip Lanier APRN.DAYANA March 01, 2020 1:02 PM Normal [facility] CNPHalle 02-20-2020 FERMIN Telephone (AGVASACC) CICI WOODWARD I ([id number]) 1935 F Date Time Provider Department 02/20/20 PHILIP LANIER (PARTY BUS DRIVER, COLLAR SEPARATOR) AGVASACC During your visit today, we recorded the following information about you: Galilea Calderón 02/20/2020 2:23 PM Signed LM for patient to schedule appointment 1 month post op CABG with philip. This week or next is okay for a VV. Allergies As of Date: 02/20/2020 Noted Allergy Reaction BACTRIM (SULFAMETHOXAZOLE-TRIME TH*06/10/2008 11 - Vomiting CODEINE 08/31/2005 11 - Vomiting PREDNISONE 09/05/2012 11 - Vomiting STATINS ([id number] REDUCTAS*05/25/2009 5 - Intolerance ULTRAM (TRAMADOL HCL) 01/17/2013 11 - Vomiting Date Reviewed: 01/17/2020 Reviewed by: Laurel Escamilla, RITA - Fully Assessed Reason for Visit: Appointment [...] Encounter Status:Closed by GALILEA CALDERÓN on 02/20/20 [facility] PROGRESSon 02-02-2020 PROGRESS HNO ID: [id number] Author: Melisa (Alcira Das) DAYANA Reza Service: ? Author Type: Nurse Practitioner Type: Progress Notes Filed: 02/02/2020 2:44 PM Note Text: [facility] Department of Cardiovascular Medicine Virtual Visit Date: 02/02/2020 Patient: Cici Woodward : 1935 This is a virtual visit. It required patient-provider interaction for the medical decision making as documented below. Cici Woodward is a 84 year old female that returnsvirtually today for one week post-discharge follow up for NSTEMI s/p CABG x 4 (ghosh-lad sequenced with diag; svg-om, rpl; evh) performed on 01/09/[address] Rivera. Her post-operative course was complicated by acute on chronic kidney injury, atrial fibrillation with RVR on amiodarone, metoprolol. Patient was discharged on 01/16 to [facility] and was discharged home on 01/29. [...] - S/P CABG x 3 01/09/2020 @ [facility] by Dr. 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 Rivera - COLONOSCOP W/ [...] Drop in both eyes twice daily. - [place]-3 Fatty Acids 1,250 mg cap Take 1 [...] ICD10: N17.9 - stable -f/u with PCP Hose Sprayer follow up appointment: Dr. Noel in 4-6 week. PCP follow up appointment: Dr. Pearce in 4-6 weeks. In summary, Cici Woodward is a 84 year old female [...] rehab at the next visit. Melisa Reza APRN.COLLAR SEPARATOR February 02, 2020 1:53 PM Normal [facility] Basic Panelon 01-17-2020 Creatinine [Mass/Vol] 1.61 mg/dL High 0.51-0.95 [facility] Comment on above: Result Comment: Use of this assay is not recommended for patients undergoing treatment with phenindione, due to the potential for falsely depressed results. Performed By: #### G LMET #### [facility] [address] [place], [place] [address] Anion gap [Moles/Vol] 11 mmol/L Normal 8-16 [facility] Comment on above: Performed By: #### G LMET #### [address] [address] Calcium [Mass/Vol] 8.7 mg/dL Normal 8.5-10.1 [facility] Comment on above: Performed By: #### G LMET #### [address] [address] CO2 [Moles/Vol] 21 mmol/L Normal 21-32 [facility] Comment on above: Performed By: #### G LMET #### [address] [address] Glucose [Mass/Vol] 118 mg/dL High 70-99 [facility] Comment on above: Performed By: #### G LMET #### [address] [address] Urea nitrogen [Mass/Vol] 35 mg/dL High 7-18 [facility] Comment on above: Performed By: #### G LMET #### [facility] [address] [place], [place] [address] Chloride [Moles/Vol] 109 mmol/L High 98-107 [facility] Comment on above: Performed By: #### G LMET #### [address] [address] Potassium [Moles/Vol] 3.8 mmol/L Normal 3.5-5.1 [facility] Comment on above: Performed By: #### G LMET #### [address] [address] Sodium [Moles/Vol] 137 mmol/L Normal 136-145 [facility] Comment on above: Performed By: #### G LMET #### [address] [address] CONSULT PROGon 01-17-2020 CONSULT PROG HNO ID: [id number] Author: Eileen Jones Service: Endocrinology Author Type: Physician Type: Consult Progress Note Filed: 01/17/2020 8:14 AM Note Text: ENDOCRINOLOGY CONSULT PROGRESS NOTE SERVICE DATE: 01/17/2020 SERVICE TIME: 7:50 AM Subjective INTERVAL HPI: followed for DM type 2, on insulin MDI; can not tolerate metformin due to diarrhea; has CAD; s/p CABG. 01/09/2020 She was admitted to [facility] with chest pain and was found to have coronary artery disease. Patient has history of angioplasty 30 years ago. ?H/o CAD and remote ND now admitted with NSTEMI who is found [...] 01/09/2020 SIGNATURE: Eileen Jones MD PATIENT NAME: Cici Woodward DATE: January 17, 2020 TIME: 8:14 AM PAGER: [phone] Normal [facility] Glucose Meteron 01-17-2020 Glucose [Mass/Vol] 147 mg/dL High 70-99 [facility] Comment on above: Result Comment: RN N OTIFIED Performed By: #### G LMET #### [place] [id number] MDRD GFRon 01-17-2020 GFR/1.73 sq M predicted among non-blacks MDRD (S/P/Bld) [Vol rate/Area] 30.57 mL/min/{1.73_m2} Normal >60mL/min/1. 73m2 [facility] Comment on above: Result Comment: If t he patient is , multiply the result by 1.210. Performed By: #### A PTT #### [place] [id number] PROGRESSon 01-17-2020 PROGRESS HNO ID: [id number] Author: Erwin Sewell Service: Nephrology Author Type: [...] this time ROS is (-) unless mentioned / 01/17/20 0502 01/17/20 0615 01/17/20 0825 01/17/20 0856 BP: 147/72 138/60 Pulse: 73 80 74 Resp: 18 18 18 Temp: 36.5 ?C (97.7 ?F) 36.5 ?C (97.7 ?F) TempSrc: Oral Oral SpO2: 98% 96% 96% Weight: 80.2 kg (176 lb 12.8 oz) Height: 24HR INTAKE/OUTPUT: No intake or output data in the 24 hours ending 03/920 ? Constitutional:??extuba petar, in chair, awake, alert, [...] Replace k prn Ok for low dose ARB/ISABELLA-I from renal standpoint DM ( target Hb A1c < 7) Ok for dc and fu in office in 2 weeks from renal standpoint Normal [facility] Basic Panelon 01-16-2020 Creatinine [Mass/Vol] 1.49 mg/dL High 0.51-0.95 [facility] Comment on above: Result Comment: Use of this assay is not recommended for patients undergoing treatment with phenindione, due to the potential for falsely depressed results. Performed By: #### G LMET #### [facility] [address] [place], [place] [address] Anion gap [Moles/Vol] 12 mmol/L Normal 8-16 [facility] Comment on above: Performed By: #### G LMET #### [facility] [address] [place], [place] [address] CO2 [Moles/Vol] 21 mmol/L Normal 21-32 [facility] Comment on above: Performed By: #### G LMET #### [facility] [address] [place], [place] [address] Glucose [Mass/Vol] 151 mg/dL High 70-99 [facility] Comment on above: Performed By: #### G LMET #### [facility] [address] [place], [place] [address] Urea nitrogen [Mass/Vol] 40 mg/dL High 7-18 [facility] Comment on above: Performed By: #### G LMET #### [facility] [address] [place], [place] [address] Calcium [Mass/Vol] 8.3 mg/dL Low 8.5-10.1 [facility] Comment on above: Performed By: #### G LMET #### [facility] [address] [place], [place] [address] Chloride [Moles/Vol] 110 mmol/L High 98-107 [facility] Comment on above: Performed By: #### G LMET #### [facility] [address] [place], [place] [address] Potassium [Moles/Vol] 4.2 mmol/L Normal 3.5-5.1 [facility] Comment on above: Performed By: #### G LMET #### [facility] [address] [place], [place] [address] Sodium [Moles/Vol] 139 mmol/L Normal 136-145 [facility] Comment on above: Performed By: #### G LMET #### [place] [address] CASE MANAGEMon 01-16-2020 CASE MANAGEM HNO ID: [id number] Author: Poly Strickland Service: Care Management Author Type: ? Type: Care Mgt Progress Note Filed: 01/16/2020 1:15 PM Note Text: CARE MANAGEMENT PROGRESS NOTE SERVICE DATE: 01/16/2020 SERVICE TIME: 1115 LOS: 13 days IMM Follow Up Copy Given: Yes Copy given to:: Patient Method: In Person SIGNATURE: Poly Strickland PATIENT NAME: Cici Woodward DATE: January 16, 2020 TIME: 1:15 PM PAGER/CONTACT #: [phone] [facility] CASE MANAGEM HNO ID: [id number] Author: Patience Ochoa) RITA Christy Service: Care Management Author Type: Registered Nurse Type: Care Mgt Progress Note Filed: 01/16/2020 12:41 PM Note Text: CARE MANAGEMENT DISCHARGE NOTE SERVICE DATE: 01/16/2020 SERVICE TIME: 12:39 PM LOS: 13 days Admission Date: 01/03/2020 DISCHARGE ARRANGEMENT (list agency and phone number) Discharge Arrangement: Acute rehab Provider Name: [facility] CAREGIVER ASSESSMENT: Caregiver is ready, willing and [...] 10am. SIGNATURE: Patience Christy RN PATIENT NAME: Cici Woodward DATE: January 16, 2020 TIME: 12:39 PM PAGER/CONTACT #: [phone] [facility] CONSULT PROGon 01-16-2020 CONSULT PROG HNO ID: [id number] Author: Eileen Jones Service: Endocrinology Author Type: Physician Type: Consult Progress Note Filed: 01/16/2020 8:56 AM Note Text: ENDOCRINOLOGY CONSULT PROGRESS NOTE SERVICE DATE: 01/16/2020 SERVICE TIME: 8:30 AM Subjective INTERVAL HPI: followed for DM type 2, on insulin MDI; can not tolerate metformin due to diarrhea; has CAD; s/p CABG. 01/09/2020 She was admitted to [facility] with chest pain and was found to have coronary artery disease. Patient has history of angioplasty 30 years ago. ?H/o CAD and remote ND now admitted with NSTEMI who is found [...] 01/09/2020 SIGNATURE: Eileen Jones MD PATIENT NAME: Cici Woodward DATE: January 16, 2020 TIME: 8:56 AM PAGER: [phone] [facility] NUTRITIONon 01-16-2020 NUTRITION HNO ID: [id number] Author: Kinjal Velarde Service: Nutrition Therapy Author [...] SIGNATURE: Kinjal Velarde RD, LD PATIENT NAME: Cici Woodward DATE: January 16, 2020 TIME: 11:16 AM PAGER: [phone] [facility] PROGRESSon 01-16-2020 PROGRESS HNO ID: [id number] Author: Yanet Rivera Service: Thoracic Surgery Author Type: Physician Type: Progress Notes Filed: 01/16/2020 5:00 PM Note Text: Patient seen this afternoon with CDL TRUCK DRIVER. Patient feeling better and hapyy and thankful. P-to [place] acute rehab in AM Sunday per Philip. [facility] PROGRESS HNO ID: [id number] Author: Philip Lanier CNP Service: Cardiac Surgery Author Type: Nurse Practitioner Type: Progress Notes Filed: 01/16/2020 12:22 PM Note Text: CARDIOTHORACIC SURGERY POSTOP PROGRESS NOTE SERVICE DATE: 01/16/2020 SERVICE TIME: 12:17 PM Subjective S/P SURGERY: Procedure(s) (LRB): CABG x 4 (GHOSH phup-uz-fojp to diagonal, end-to-side to LAD in sequential fashion, SVG ptkz-uj-ekwi to OM, and end-to-side of PLB of the RCA,?rEVH) DATE OF SURGERY: 01/09/2020 POSTOP DAY #7 LOS: 13 HPI:?Cici Woodward?is an 84-year-old woman from [facility] who transferred to [facility] with?NSTEMI and found to have multivessel coronary artery disease with decreased EF 30%. She is a history of CAD (status post angioplasty 30 years ago), DM, HTN, HLD, remote CVA with left-sided weakness, CK 80 (baseline creatinine 1.4-1.5). She denies any history of CHF. At presentation she complained of upper respiratory symptoms, and was treated with amoxicillin. At [facility] she was loaded with Brillinta. During the Brillinta wash, she underwent a complete workup at [facility]. She was found to have multiple wall [...] is underway, she wishes to discharge to [facility] acute rehabilitation. They have accepted, insurance prior authorization is not required. She is held over due to SHA on CKD with fluid volume overload. Today, she is doing quite well. Aware [facility] cannot take her to day. She will [...] 80/ Cr > 1.5) -CHADS2 score: 6 -[id number] VASc score: 9 ? Volume overload ?- [...] and/or family verbalizes understanding. ? DISPO:??Acute Rehab. [facility] has Accepted, no insurance auth required. Discharge is done for Sunday. She is to leave Sat AM by private car. Tests/Labs Ordered: 1. None SIGNATURE: Philip Lanier APRN.CNP PATIENT NAME: Cici Woodward DATE: January 16, 2020 TIME: 12:16 PM PAGER/CONTACT #: [phone] ETX [id number] Normal [facility] PROGRESS HNO ID: [id number] Author: Cesar Burroughs Service: Nephrology Author Type: Physician Type: Progress Notes Filed: 01/16/2020 7:27 PM Note Text: [facility]ph[facility] Progress Note Subjective/ INTERVAL [...] Intake/Output Summary (Last 24 hours) at 01/16/2020 08 Last data filed at 01/15/2020 2358 Gross [...] Replace k prn Ok for low dose ARB/ISABELLA-I from renal standpoint DM ( target Hb A1c < 7) Ok for dc and fu in office in 2 weeks from renal standpoint Normal [facility] THERAPY NTon 01-16-2020 THERAPY NT HNO ID: [id number] Author: Franci (Pt) Judith Service: Physical Therapy Author Type: Physical Therapist Type: Therapy (PT/OT/Speech/Resp) Filed: 01/16/2020 5:13 PM Note Text: Physical Therapy Treatment SERVICE DATE: 01/16/2020 SERVICE TIME: 1602 to 1620 ROOM: [place] [address] Recommended Discharge Disposition: Acute Rehab Recommended Discharge [...] ess on feet Interventions Provided: Gait Training (42453) Gait Training (03049) Treatment Minutes: 18 1 unit Skilled Intervention(s): [...] Curb Step Car Transfer General Deviations/Observations : Dai decreased;Flexed trunk posture;Non-functional gait speed;Step length decreased [...] evaluation/treatment. SIGNATURE: Franci Wong PT PATIENT NAME: Cici Woodward DATE: January 16, 2020 TIME: 5:10 PM Normal [facility] THERAPY NT HNO ID: [id number] Author: Belgica Cantu/Flor Sue Service: Occupational Therapy Author Type: Occupational Therapist Type: Therapy (PT/OT/Speech/Resp) Filed: 01/16/2020 4:13 PM Note Text: Occupational Therapy Treatment SERVICE DATE: 01/16/2020 SERVICE TIME: 1532 to 1550 ROOM: [id number] Recommended Discharge Disposition: Acute Rehab Recommended Discharge [...] (ADL);General symptoms and signs-other Interventions Provided: Self Alf Management (81488) Self Alf Management (15909) Treatment Minutes: 18 1 unit Skilled Intervention(s): [...] complete details for this therapy evaluation/treatment. SIGNATURE: Washington Brownlee/MARCK PATIENT NAME: Cici Woodward DATE: January 16, 2020 TIME: 3:59 PM Evaluation and/or treatment directly supervised by licensed Occupational Therapist. I reviewed and agree with the documentation corresponding to this therapy visit. SIGNATURE: Belgica Sue OTR/L DATE: January 16, 2020 TIME: 4:12 PM Normal [facility] Basic Panelon 01-15-2020 Creatinine [Mass/Vol] 1.62 mg/dL High 0.51-0.95 [facility] Comment on above: Result Comment: Use of this assay is not recommended for patients undergoing treatment with phenindione, due to the potential for falsely depressed results. Performed By: #### G LMET #### [address] [address] Anion gap [Moles/Vol] 11 mmol/L Normal 8-16 [facility] Comment on above: Performed By: #### G LMET #### [facility] [address] [place], [place] [address] CO2 [Moles/Vol] 23 mmol/L Normal 21-32 [facility] Comment on above: Performed By: #### G LMET #### [address] [address] Glucose [Mass/Vol] 300 mg/dL High 70-99 [facility] Comment on above: Performed By: #### G LMET #### [facility] [address] [place], [place] [address] Urea nitrogen [Mass/Vol] 41 mg/dL High 7-18 [facility] Comment on above: Performed By: #### G LMET #### [facility] [address] [place], [place] [address] Calcium [Mass/Vol] 8.3 mg/dL Low 8.5-10.1 [facility] Comment on above: Performed By: #### G LMET #### [facility] [address] [place], [place] [address] Chloride [Moles/Vol] 107 mmol/L Normal 98-107 [facility] Comment on above: Performed By: #### G LMET #### [facility] [address] [place], [place] [address] Potassium [Moles/Vol] 3.9 mmol/L Normal 3.5-5.1 [facility] Comment on above: Performed By: #### G LMET #### [facility] [address] [place], [place] [address] Sodium [Moles/Vol] 137 mmol/L Normal 136-145 [facility] Comment on above: Performed By: #### G LMET #### [facility] [address] [place], [place] [address] CONSULT PROGon 01-15-2020 CONSULT PROG HNO ID: [id number] Author: Eileen Jones Service: Endocrinology Author Type: Physician Type: Consult Progress Note Filed: 01/15/2020 8:35 AM Note Text: ENDOCRINOLOGY CONSULT PROGRESS NOTE SERVICE DATE: 01/15/2020 SERVICE TIME: 8:20 AM Subjective INTERVAL HPI: followed for DM type 2, on insulin MDI; can not tolerate metformin due to diarrhea; has CAD; s/p CABG. 01/09/2020 She was admitted to [facility] with chest pain and was found to have coronary artery disease. Patient has history of angioplasty 30 years ago. ?H/o CAD and remote ND now admitted with NSTEMI who is found [...] taking Boost! DIET HEART HEALTHY Recent Labs 01/14/204 01/14/20 1722 01/14/20 1129 01/14/20 0523 01/13/20 [...] 01/09/2020 SIGNATURE: Eileen Jones MD PATIENT NAME: Cici Woodward DATE: January 15, 2020 TIME: 8:35 AM PAGER: [phone] [facility] NUTRITIONon 01-15-2020 NUTRITION HNO ID: [id number] Author: Franci Silveira) FERCHO Gramajo Service: Nutrition Therapy Author Type: Registered Dietitian Type: Nutrition Filed: 01/15/2020 12:16 PM Note Text: NUTRITION THERAPY PROGRESS NOTE SERVICE DATE: 01/15/2020 SERVICE TIME: 12:05 Nutrition Assessment: Recommended Malnutrition Diagnosis: No Malnutrition Identified (01/07/20 1300 : Kinjal (Rd) [place]) Estimated kilocalorie needs: 2974-3074 Calorie Calculation Method: 25-30 kcals/kg Estimated protein [...] HEALTHY SIGNATURE: Franci Gramajo RD PATIENT NAME: Cici Woodward DATE: January 15, 2020 TIME: 9:32 AM PAGER: [phone] Normal [facility] PROGRESSon 01-15-2020 PROGRESS HNO ID: [id number] Author: Yanet Rivera Service: Cardiac Surgery Author Type: Physician Type: Progress Notes Filed: 01/15/2020 3:10 PM Note Text: CARDIOTHORACIC SURGERY POSTOP PROGRESS NOTE SERVICE DATE: 01/15/2020 SERVICE TIME: 1:19 PM Subjective S/P SURGERY: Procedure(s) (LRB): CABG x 4 (GHOSH thja-td-lmfw to diagonal, end-to-side to LAD in sequential fashion, SVG lvlm-yg-jhqi to OM, and end-to-side of PLB of the RCA, rEVH) DATE OF SURGERY: 01/09/2020 POSTOP DAY #6 LOS: 12 HPI: Cici Woodward is an 84-year-old woman from [facility] who transferred to [facility] with NSTEMI and found to have multivessel coronary artery disease with decreased EF 30%. She is a history of CAD (status post angioplasty 30 years ago), DM, HTN, HLD, remote CVA with left-sided weakness, CK 80 (baseline creatinine 1.4-1.5). She denies any history of CHF. At presentation she complained of upper respiratory symptoms, and was treated with amoxicillin. At [facility] she was loaded with Brillinta. During the Brillinta wash, she underwent a complete workup at [facility]. She was found to have multiple wall [...] is underway, she wishes to discharge to [facility] acute rehabilitation. They have accepted, insurance prior authorization is not required. She is held over due to SHA on CKD with fluid volume overload. Today, she is seen ambulating in the ashraf as well as resting in her chair. She reports she is feeling better today than she did yesterday and she continues to voice her plan is to go to [facility] acute rehabilitation. Objective Admission Weight: 73.3 [...] 80/ Cr > 1.5) -CHADS2 score: 6 -[id number] VASc score: 9 ? Volume overload ?- [...] family verbalizes understanding. ? DISPO: Acute Rehab. [facility] has Accepted, no insurance auth required. May discharge when medically ready, likely 24 hours. Tests/Labs Ordered: 1. BMP SIGNATURE: Philip Lanier APRN.CNP PATIENT NAME: Cici Woodward DATE: January 15, 2020 TIME: 1:19 PM PAGER/CONTACT #: [phone] ETX [id number] Patient seen this AM with CDL TRUCK DRIVER and data and careplan discussed with patient. P-cont diuresis today with discharge planning for AM to [place] acute rehab/transitional unit. Normal [facility] PROGRESS HNO ID: [id number] Author: Cesar Burroughs Service: Nephrology Author Type: [...] this time ROS is (-) unless mentioned 01/14/20 2300 01/15/20 0600 01/15/20 0617 01/15/20 0920 BP: 131/87 149/64 Pulse: 84 77 76 Resp: 18 Temp: 36.4 ?C (97.5 ?F) 37.4 [...] for prn diuresis for volume issues Avoid ISABELLA-I until cr stable for 72 h Lytes are stable, continue to monitor C/w demedex 10 mg daily for heart failure No need for the PRINTS AND DRAWINGS CURATOR We will follow Avoid all renal toxins Dose meds for GFR < 30 Yfn Jennings APRN.COLLAR SEPARATOR PRC team Patient seen and independently examined and assessed.The Nurse practitioner note was reviewed and exam noted. I agree with his assessment and recommendations. Any variance is noted as below. Normal [facility] THERAPY NTon 01-15-2020 THERAPY NT HNO ID: [id number] Author: Franci (Hardeep Wong Service: Physical Therapy Author Type: Physical Therapist Type: Therapy (PT/OT/Speech/Resp) Filed: 01/15/2020 2:22 PM Note Text: Physical Therapy Treatment SERVICE DATE: 01/15/2020 SERVICE TIME: 1103 to 1130 ROOM: [place] [address] Recommended Discharge Disposition: Acute Rehab Recommended Discharge [...] ess on feet Interventions Provided: Therapeutic Activity (47198);Gait Training (74802) Therapeutic Activity (40047) Treatment Minutes: 10 1 unit Skilled Intervention(s): [...] assist and demonstrates fair understanding. Gait Training (44104) Treatment Minutes: 15 1 unit Skilled Intervention(s): [...] Curb Step Car Transfer General Deviations/Observations : Dai decreased;Flexed trunk posture;Non-functional gait speed;Step length decreased [...] evaluation/treatment. SIGNATURE: Franci Wong PT PATIENT NAME: Cici Woodward DATE: January 15, 2020 TIME: 2:18 PM Normal [facility] XR CHEST 2V FRONTAL/LATon XR CHEST 2V [...] vascular sheath. No measurable pneumothorax is seen Document Scanner: KURT Transcribe Date/Time: Jan 15 2020 7:51A Dictated by : MARCO VICENTE MD This examination was interpreted and the report reviewed and electronically signed by: MARCO VICENTE MD on Jan 15 2020 7:53AM EST Normal [facility] Basic Panelon 01-14-2020 Creatinine [Mass/Vol] 1.82 mg/dL High 0.51-0.95 [place] [facility] Comment on above: Result Comment: Use of this assay is not recommended for patients undergoing treatment with phenindione, due to the potential for falsely depressed results. Performed By: #### G LMET #### [place] [address] Anion gap [Moles/Vol] 11 mmol/L Normal 8-16 [facility] Comment on above: Performed By: #### G LMET #### [facility] [address] [place], [place] [address] CO2 [Moles/Vol] 20 mmol/L Low 21-32 [facility] Comment on above: Performed By: #### G LMET #### [facility] [address] [place], [place] [address] Urea nitrogen [Mass/Vol] 47 mg/dL High 7-18 [facility] Comment on above: Performed By: #### G LMET #### [facility] [address] [place], [place] [address] Calcium [Mass/Vol] 8.3 mg/dL Low 8.5-10.1 [facility] Comment on above: Performed By: #### G LMET #### [facility] [address] [place], [place] [address] Glucose [Mass/Vol] 124 mg/dL High 70-99 [facility] Comment on above: Performed By: #### G LMET #### [facility] [address] [place], [place] [address] Chloride [Moles/Vol] 111 mmol/L High 98-107 [facility] Comment on above: Performed By: #### G LMET #### [facility] [address] [place], [place] [address] Potassium [Moles/Vol] 4.3 mmol/L Normal 3.5-5.1 [facility] Comment on above: Performed By: #### G LMET #### [address] [address] Sodium [Moles/Vol] 138 mmol/L Normal 136-145 [facility] Comment on above: Performed By: #### G LMET #### [facility] [address] [place], [place] [address] CONSULT PROGon 01-14-2020 CONSULT PROG HNO ID: [id number] Author: Eileen Jones Service: Endocrinology Author Type: Physician Type: Consult Progress Note Filed: 01/14/2020 1:42 PM Note Text: ENDOCRINOLOGY CONSULT PROGRESS NOTE SERVICE DATE: 01/14/2020 SERVICE TIME: 1:30 PM Subjective INTERVAL HPI: followed for DM type 2, on insulin MDI; can not tolerate metformin due to diarrhea; has CAD; s/p CABG. 01/09/2020 She was admitted to [facility] with chest pain and was found to have coronary artery disease. Patient has history of angioplasty 30 years ago. ?H/o CAD and remote ND now admitted with NSTEMI who is found [...] 01/09/2020 SIGNATURE: Eileen Jones MD PATIENT NAME: Cici Woodward DATE: January 14, 2020 TIME: 1:42 PM PAGER: [phone] Normal [facility] Hemogramon 01-14-2020 Erythrocyte distribution width (RBC) [Ratio] 15.1 % High 11.7-14.4 [facility] Comment on above: Performed By: #### G LMET #### [address] [address] Hematocrit (Bld) [Volume fraction] 31.8 % Low 34.1-44.9 [facility] Comment on above: Performed By: #### G LMET #### [address] [address] Hemoglobin (Bld) [Mass/Vol] 10.1 g/dL Low 11.2-15.7 [facility] Comment on above: Performed By: #### G LMET #### [address] [address] MCH (RBC) [Entitic mass] 29.9 pg Normal 25.6-32.2 [facility] Comment on above: Performed By: #### G LMET #### [facility] [address] [place] [address] MCHC (RBC) [Mass/Vol] 31.8 % Normal 31.6-34.8 [facility] Comment on above: Performed By: #### G LMET #### [facility] [address] [place] [address] MCV (RBC) [Entitic vol] 94.1 fL Normal 79.4-94.8 [facility] Comment on above: Performed By: #### G LMET #### [facility] [address] [place] [address] Platelet mean volume (Bld) [Entitic vol] 11.8 fL Normal 9.4-12.3 [facility] Comment on above: Performed By: #### G LMET #### [facility] [address] [place] [address] Platelets (Bld) [#/Vol] 209 thou/cmm Normal 182-369 [facility] Comment on above: Performed By: #### G LMET #### [facility] [address] [place] [address] RBC (Bld) [#/Vol] 3.38 mil/cmm Low 3.93-5.22 [facility] Comment on above: Performed By: #### G LMET #### [facility] [address] [place] [address] RDW SD 51.5 fl High 36.4-46.3 [facility] Comment on above: Performed By: #### G LMET #### [facility] [address] [place] [address] WBC (Bld) [#/Vol] 11.07 thou/cmm High 3.98-10.04 [facility] Comment on above: Performed By: #### G LMET #### [facility] [address] [place] [address] PROGRESSon 01-14-2020 PROGRESS HNO ID: [id number] Author: Cesar Burroughs Service: Nephrology Author Type: [...] is ok PO is ok too Avoid ISABELLA-I until cr stable for 72 h Follow the lytes Ok for lasix D/w CTS Ok ti give demadex 10 mg a day for the CHF Less issues with oral bio-availability No need for the PRINTS AND DRAWINGS CURATOR We will follow Avoid all renal toxins Dose meds for GFR < 30 Normal [facility] PROGRESS HNO ID: [id number] Author: Yanet Rivera Service: Cardiac Surgery Author Type: Physician Type: Progress Notes Filed: 01/14/2020 3:59 PM Note Text: CARDIOTHORACIC SURGERY POSTOP PROGRESS NOTE SERVICE DATE: 01/14/2020 SERVICE TIME: 8:57 AM Subjective S/P SURGERY: Procedure(s) (LRB): CABG x 4 (GHOSH ktum-ud-rlrz to diagonal, end-to-side to LAD in sequential fashion, SVG nmah-by-kaev to OM, and end-to-side of PLB of the RCA, rEVH) DATE OF SURGERY: 01/09/2020 POSTOP DAY #5 LOS: 11 HPI: Cici Woodward is an 84-year-old woman from [facility] who transferred to [facility] with NSTEMI and found to have multivessel coronary artery disease with decreased EF 30%. She is a history of CAD (status post angioplasty 30 years ago), DM, HTN, HLD, remote CVA with left-sided weakness, CK 80 (baseline creatinine 1.4-1.5). She denies any history of CHF. At presentation she complained of upper respiratory symptoms, and was treated with amoxicillin. At [facility] she was loaded with Brillinta. During the Brillinta wash, she underwent a complete workup at [facility]. She was found to have multiple wall [...] is underway, she wishes to discharge to [facility] acute rehabilitation. They have accepted, insurance prior authorization is not required. Today,She reports she is doing well. She is ready to move along to the next phase of care. He plan is to go to [facility] acute Objective Admission Weight: 73.3 kg (161 [...] 80/ Cr > 1.5) -CHADS2 score: 6 -[id number] VASc score: 9 Volume overload ?- 81.5/73.3 [...] and/or family verbalizes understanding. DISPO: Acute Rehab. [facility] has Accepted, no insurance auth required. May discharge when medically ready, likely 24-48 hours. Tests/Labs Ordered: 1. Chest X-ray 2. BMP SIGNATURE: Philip Lanier APRN.COLLAR SEPARATOR PATIENT NAME: Cici Woodward DATE: January 14, 2020 TIME: 8:53 AM PAGER/CONTACT #: [phone] ETX [id number] Patient seen with CDL TRUCK DRIVER this afternoon. Labs, data, and careplan reviewed and d/w patient as well. P-as ordered. Diuresis and placement for acute rehab. Normal [facility] PROGRESS HNO ID: [id number] Author: Gladys Bhakta Service: Pulmonary Disease Author [...] care with the nurse practitioner Seen on 0. Feels great and no SOB, cough, or [...] 14, 2020 2:25 PM PULMONARY PROGRESS NOTE [facility] SERVICE DATE: January 14, 2020 SERVICE TIME: 10:17 AM Subjective Patient states feels better today breathing much better. Patient denies shortness of breath, wheezing, cough, phlegm, chest pain, fevers or chills. On room air. OBJECTIVE Current Facility-Administered Medications Medication Dose Route Frequency Provider Last Rate Last Dose - metoprolol succinate ER 50 mg tab(s) (TOPROL XL) 50 mg ORAL BID Philip Lanier CNP - metoprolol tartrate (short acting) 50 mg tab(s) (LOPRESSOR) 50 mg ORAL q 8 H Philip Lanier CNP - amLODIPine 2.5 mg tab(s) (NORVASC) 2.5 mg ORAL DAILY Philip Lanier CNP 2.5 mg at 01/14/20 1015 - insulin lispro 6 Units pen (rapid acting) (HumaLOG KWIKPEN) 6 Units SUBCUTANEOUS w MEALS Bowers (Pa) Rufranklinin 6 Units at 01/13/20 1738 - dextrose 40 % 15 g 15 g ORAL PRN Vish Singleton (Pa)in Or - glucagon 1 mg injection (GLUCAGEN) 1 mg INTRAMUSCULAR PRN Vish Singleton (Pa)in Or - dextrose 50% in water 25 mL syringe 12.5 g INTRAVENOUS PRN Vish Singleton (Pa)in - insulin lispro pen (rapid acting) (HumaLOG [...] Vish Shin) Ruhlin 2 tablet at 01/14/20 0905 - NaCl 0.9% 2-10 mL 2-10 mL INTRAVENOUS q 12 H Bowers (Pa) Ruhlin 10 mL at 01/14/20 0902 - melatonin 3 mg tab(s) 3 mg ORAL HS PRN Vish Shin) Areliin - traMADol 50-100 mg tab(s) (ULTRAM) 50-100 mg ORAL q 12 H PRN Jack Ngo (Pharmacist) - amiodarone 400 mg tab(s) (PACERONE) 400 mg ORAL TID Vish Shin) Ruhlin 400 mg at 01/14/20 0904 - aspirin 162 mg chewable tab(s) 162 mg ORAL DAILY Bowers (Pa) Ruhlin 162 mg at 01/14/20 09 - enoxaparin 30 mg injection (LOVENOX) 30 mg SUBCUTANEOUS q 24 HR Vish Shin) Ruhlin 30 mg at 01/14/20 0904 - insulin glargine 8 Units pen (long acting) (LANTUS SOLOSTAR, BASAGLAR KWIKPEN) 8 Units SUBCUTANEOUS DAILY (8 AM) Vish Shin) Ruhlin 8 Units at 01/14/20 0905 - pantoprazole DR 40 mg tab(s) (PROTONIX) 40 mg ORAL DAILY (6 AM) Vish Shin) Ruhlin 40 mg at 01/14/20 0520 - acetaminophen 1,000 mg tab(s) (TYLENOL) 1,000 mg ORAL/FEEDING TUBE q 6 H Vish Shin) Ruhlin 1,000 mg at 01/14/20 0520 - albuterol 2.5 mg /3 mL (0.083 %) 2.5 mg (PROVENTIL) 2.5 mg INHALATION q 2 H PRN Bowers (Pa) Rufranklinin - atorvastatin 40 mg tab(s) (LIPITOR) 40 mg ORAL AT BEDTIME Bowers (Pa) Ruhlin 40 mg at 01/13/20 2324 - ondansetron (PF) 4 mg injection (ZOFRAN) 4 mg INTRAVENOUS q 6 H PRN Vish Shin) Ruhlin 4 mg at 01/09/20 2320 - lidocaine 4 % 1 Patch (SALONPAS) 1 Patch TRANSDERMAL DAILY Vish Shin) Ruhlin 1 Patch at 01/14/20 0904 And - lidocaine patch - REMOVE OTHER AT BEDTIME iVsh Shin) Ruhlin And - lidocaine - VERIFY PATCH OTHER q 8 H Bowers (Pa) Ruhlin - bisacodyl 10 mg suppository (DULCOLAX) 10 mg RECTAL DAILY PRN Vish Shin) Ruhlin - magnesium oxide 400 mg tab(s) (MAG-OX) 400 mg ORAL DAILY Vish Shin) Ruhlin 400 mg at 01/14/20 1015 - polyethylene glycol 3350 17 g packet (MIRALAX, GLYCOLAX) 17 g ORAL DAILY Vish Shin) Ruhlin 17 g at 01/13/20 0829 INTAKE AND OUTPUT No intake or output data in the 24 hours ending 01/14/20 1017 New Radiology Films: CXR 01/13/2020 Diminished aeration left lung base consistent with atelectasis and probable left-sided pleural effusion. ?Slightly worse. CXr 01/12/2020 Status post removal of [place]-Veto catheter. ?Left-sided chest tube, mediastinal drain, and [...] with questions or concerns. SIGNATURE: Gladys Bhakta APRN.CNP PATIENT NAME: Cici Woodward DATE: January 14, 2020 TIME: 10:17 AM PAGER/CONTACT #: [phone] Normal [facility] Basic Panelon 01-13-2020 Urea nitrogen [Mass/Vol] 49 mg/dL High 7-18 [facility] Comment on above: Performed By: #### G LMET #### [facility] [address] [place], [place] [address] Creatinine [Mass/Vol] 1.93 mg/dL High 0.51-0.95 [facility] Comment on above: Result Comment: Use of this assay is not recommended for patients undergoing treatment with phenindione, due to the potential for falsely depressed results. Performed By: #### G LMET #### [address] [address] Anion gap [Moles/Vol] 11 mmol/L Normal 8-16 [facility] Comment on above: Performed By: #### G LMET #### [address] [address] CO2 [Moles/Vol] 22 mmol/L Normal 21-32 [facility] Comment on above: Performed By: #### G LMET #### [facility] [address] [place], [place] [address] Glucose [Mass/Vol] 134 mg/dL High 70-99 [facility] Comment on above: Performed By: #### G LMET #### [facility] [address] [place], [place] [address] Calcium [Mass/Vol] 8.3 mg/dL Low 8.5-10.1 [facility] Comment on above: Performed By: #### G LMET #### [address] [address] Chloride [Moles/Vol] 107 mmol/L Normal 98-107 [facility] Comment on above: Performed By: #### G LMET #### [facility] [address] [place], [place] [address] Potassium [Moles/Vol] 4.3 mmol/L Normal 3.5-5.1 [facility] Comment on above: Performed By: #### G LMET #### [facility] [address] [place], [place] [address] Sodium [Moles/Vol] 136 mmol/L Normal 136-145 [facility] Comment on above: Performed By: #### G LMET #### [facility] [address] [place], [place] [address] CASE MANAGEMon 01-13-2020 CASE MANAGEM HNO ID: [id number] Author: Kaylee (Rn) RITA Mcnamara Service: ? Author Type: Registered Nurse Type: Care Mgt Progress Note Filed: 01/13/2020 10:01 AM Note Text: CARE MANAGEMENT PROGRESS NOTE SERVICE DATE: 01/13/2020 SERVICE TIME: 10:00 AM LOS: 10 days Needs Prior to Discharge: Discharge Transportation [facility] acute rehab has accepted. No precert needed. SIGNATURE: Kaylee Mcnamara RN PATIENT NAME: Cici Woodward DATE: January 13, 2020 TIME: 10:00 AM PAGER/CONTACT #: [phone] Normal [facility] CONSULTon 01-13-2020 CONSULT HNO ID: [id number] Author: Cesar Burroughs Service: Nephrology Author Type: Physician Type: Consults Filed: 01/13/2020 3:03 PM Note Text: [facility] [...] this time ROS is (-) unless mentioned / 01/13/20 0741 01/13/20 0800 01/13/20 1035 01/13/20 [...] is ok PO is ok too Avoid ISABELLA-I until cr stable for 72 h Follow the lytes No need for the PRINTS AND DRAWINGS CURATOR We will follow Avoid all renal toxins Dose meds for GFR < 30 Normal [facility] CONSULT [place] 01-13-2020 CONSULT PROG HNO ID: [id number] Author: Ann Echeverria Service: Endocrinology Author Type: [...] 30 years ago. ?H/o CAD and remote ND now admitted with NSTEMI who is found [...] 01/09/2020 SIGNATURE: Ann Echeverria MD PATIENT NAME: Cici Woodward DATE: January 13, 2020 TIME: 10:50 AM PAGER: [phone] Normal [facility] Hemogramon 01-13-2020 Erythrocyte distribution width (RBC) [Ratio] 15.1 % High 11.7-14.4 [facility] Comment on above: Performed By: #### H A1C #### [address] [address] Hematocrit (Bld) [Volume fraction] 33.4 % Low 34.1-44.9 [facility] Comment on above: Performed By: #### H A1C #### [address] [place], [place] [address] Hemoglobin (Bld) [Mass/Vol] 10.8 g/dL Low 11.2-15.7 [facility] Comment on above: Performed By: #### H A1C #### [facility] [address] [place] [address] MCH (RBC) [Entitic mass] 30.0 pg Normal 25.6-32.2 [facility] Comment on above: Performed By: #### H A1C #### [facility] [address] [place] [address] MCHC (RBC) [Mass/Vol] 32.3 % Normal 31.6-34.8 [facility] Comment on above: Performed By: #### H A1C #### [facility] [address] [place] [address] MCV (RBC) [Entitic vol] 92.8 fL Normal 79.4-94.8 [facility] Comment on above: Performed By: #### H A1C #### [facility] [address] [place] [address] Platelet mean volume (Bld) [Entitic vol] 12.2 fL Normal 9.4-12.3 [facility] Comment on above: Performed By: #### H A1C #### [place] [address] Platelets (Bld) [#/Vol] 188 thou/cmm Normal 182-369 [facility] Comment on above: Performed By: #### H A1C #### [place] [address] RBC (Bld) [#/Vol] 3.60 mil/cmm Low 3.93-5.22 [facility] Comment on above: Performed By: #### H A1C #### [facility] [address] [place] [address] RDW SD 50.5 fl High 36.4-46.3 [facility] Comment on above: Performed By: #### H A1C #### [place] [address] WBC (Bld) [#/Vol] 15.23 thou/cmm High 3.98-10.04 [facility] Comment on above: Performed By: #### H A1C #### [facility] [address] [place] [address] PROGRESSon 01-13-2020 PROGRESS HNO ID: [id number] Author: Yanet Rivera Service: Thoracic Surgery Author Type: Physician Type: Progress Notes Filed: 01/13/2020 3:04 PM Note Text: Patient seen this AM on 4200. She says she is doing better and was given her kleenex and incentive spirometer. Later d/w CDL TRUCK DRIVER. P-as ordered. Normal [facility] PROGRESS HNO ID: [id number] Author: Jack Ngo (Pharmacist) Service: Pharmacy Author Type: Pharmacist Type: Progress Notes Filed: 01/13/2020 11:30 AM Note Text: Pharmacy Consult Agreement: Renal Dose Adjustment Patient Name: Cici Woodward Service Date: 01/13/2020 Service Time: 11:29 [...] this patient. Signature: Jack Ngo, Pharmacist Pager/Extension: [phone] [facility] PROGRESS HNO ID: [id number] Author: Vish Hardy (Pa) Service: Cardiovascular Surgery Author Type: Physician Arts Manager Type: Progress Notes Filed: 01/13/2020 9:31 AM [...] 80/ Cr > 1.5) -CHADS2 score: 6 -[id number] VASc score: 9 ? Anticipated post-op respiratory [...] ? Remote Hx of CVA Transfer to [facility] Plan of care completed with RN. Patient questions answered. SIGNATURE: Vish Hardy PA-C PATIENT NAME: Cici Woodward DATE: January 13, 2020 TIME: 8:35 AM PAGER/CONTACT #: [phone] Normal [facility] PROGRESS HNO ID: [id number] Author: Cesar Marinelli Service: Pulmonary Disease Author [...] Hyperuricemia Diarrhea, Unspecified Acs (Acute Coronary Syndrome) ([facility]) S/P Cabg X 4 PAST MEDICAL HISTORY [...] ANGIOPLASTY 1988 - COLONOSCOP W/ OR W/O [facility] SPEC 08/29/07 - LAPAROSCOPIC CHOLEYCYSTECTOMY Cholecystectomy, [...] Set Ventilator Respiratory Rate (BPM): 12 (01/09/20 141) Total Respiratory Rate (BPM): 12 (01/09/201409) Tidal Volume Set (mL): 500 (01/09/20 141) Exhaled Tidal Volume (mL): 487 (01/09/20 141) Minute Volume (L): 8.5 (01/09/20 141) Peak Inspiratory Pressure (cm H2O): 23 (01/09/20 141) PEEP/CPAP (cm H2O): 5 (01/09/20 141) HEMODYNAMIC [...] Echo 01/03/20 LVEF 30% ABG: Invalid input(s): [id number] Assessment/Plan IMPRESSION: Critical Care Documentation: The patient [...] procedures. SIGNATURE: Cesar Marinelli DO PATIENT NAME: Cici Woodward DATE: January 13, 2020 TIME: 8:13 AM Normal [facility] THERAPY NTon 01-13-2020 THERAPY NT HNO ID: [id number] Author: Cely Canut/Flor Ritter Service: Occupational Therapy Author Type: Occupational Therapist Type: Therapy (PT/OT/Speech/Resp) Filed: 01/13/2020 11:34 AM Note Text: Occupational Therapy Evaluation SERVICE DATE: 01/13/2020 SERVICE TIME: 1029 to 1052 ROOM: [id number] Recommended Discharge Disposition: Acute Rehab Recommended Discharge [...] (ADL);General symptoms and signs-other Interventions Provided: Evaluation;Self Alf Management (49922) $ Evaluation-Moderate (16397) Billed Units: 1 unit OT Evaluation Moderate [...] awareness, history of CVA, s/p CABG Self Alf Management (33023) Treatment Minutes: 10 1 unit Skilled Intervention(s): [...] Hospital Course: Chart reviewed; Patient presented to [facility] for CABG x 4 on 01/09/2020 due [...] SINUS - Pure hypercholesterolemia - Stroke (cerebrum) ([facility]) 2013 - Type II or unspecified type diabetes mellitus without mention of complication, uncontrolled - Unspecified cardiovascular disease - Unspecified essential hypertension - Urgency of urination 2008 PAST SURGICAL HISTORY Procedure Laterality Date - ANGIOPLASTY 1988 - COLONOSCOP W/ OR W/O [facility] SPEC 08/29/07 - LAPAROSCOPIC CHOLEYCYSTECTOMY Cholecystectomy, [...] complete details for this therapy evaluation/treatment. SIGNATURE: Washington Brownlee/OT PATIENT NAME: Cici Woodward DATE: January 13, 2020 TIME: 11:08 AM I reviewed and agree with the documentation corresponding to this therapy visit. SIGNATURE: Cely Ritter OTR/L DATE: January 13, 2020 TIME: 11:34 AM Evaluation and/or treatment directly supervised by licensed Occupational Therapist. Normal [facility] XR CHEST 1V FRONTALon 2019 XR CHEST [...] mid to distal superior vena cava. Overlying monitoring specialist leads. Lungs and pleura: Diminished aeration left lung base most likely representing combination of atelectasis as well as left-sided pleural effusion. Slightly worse. Probable atelectasis medial right lung base. No pneumothorax. Cardiomediastinal silhouette: Heart size normal. Other: Intact median sternotomy wires. IMPRESSION: Diminished aeration left lung base consistent with atelectasis and probable left-sided pleural effusion. Slightly worse. Document Scanner: PSCB Transcribe Date/Time: Jan 13 2020 6:51A Dictated by : MICKY PA MD This examination was interpreted and the report reviewed and electronically signed by: MICKY PA MD on Jan 13 2020 6:52AM EST Normal [facility] Basic Panelon 01-12-2020 Creatinine [Mass/Vol] 1.96 mg/dL High 0.51-0.95 [facility] Comment on above: Result Comment: Use of this assay is not recommended for patients undergoing treatment with phenindione, due to the potential for falsely depressed results. Performed By: #### H A1C #### [address] [address] Anion gap [Moles/Vol] 12 mmol/L Normal 8-16 [facility] Comment on above: Performed By: #### H A1C #### [address] [address] CO2 [Moles/Vol] 23 mmol/L Normal 21-32 [facility] Comment on above: Performed By: #### H A1C #### [facility] [address] [place], [place] [address] Glucose [Mass/Vol] 173 mg/dL High 70-99 [facility] Comment on above: Performed By: #### H A1C #### [facility] [address] [place], [place] [address] Urea nitrogen [Mass/Vol] 46 mg/dL High 7-18 [facility] Comment on above: Performed By: #### H A1C #### [facility] [address] [place], [place] [address] Calcium [Mass/Vol] 8.2 mg/dL Low 8.5-10.1 [facility] Comment on above: Performed By: #### H A1C #### [facility] [address] [place], [place] [address] Chloride [Moles/Vol] 106 mmol/L Normal 98-107 [facility] Comment on above: Performed By: #### H A1C #### [facility] [address] [place], [place] [address] Potassium [Moles/Vol] 4.7 mmol/L Normal 3.5-5.1 [facility] Comment on above: Performed By: #### H A1C #### [facility] [address] [place], [place] [address] Sodium [Moles/Vol] 136 mmol/L Normal 136-145 [facility] Comment on above: Performed By: #### H A1C #### [facility] [address] [place], [place] [address] CASE MGT INIT ASSESon 2019 CASE MGT INIT ASSES HNO ID: [id number] Author: Poly Strickland Service: Care Management Author Type: ? Type: Care Mgt Initial Assessment Filed: 01/12/2020 10:06 AM Note Text: CARE MANAGEMENT PROGRESS NOTE SERVICE DATE: 01/12/2020 SERVICE TIME: 929 LOS: 9 days IMM Follow Up Copy Given: Yes Copy given to:: Patient Method: In Person SIGNATURE: Poly Strickland PATIENT NAME: Cici Woodward DATE: January 12, 2020 TIME: 10:06 AM PAGER/CONTACT #: [phone] Teresita [facility] CONSULT PROIldefonso 01-12-2020 CONSULT G HNO ID: [id number] Author: Ann Echeverria Service: Endocrinology Author Type: [...] 30 years ago. ?H/o CAD and remote ND now admitted with NSTEMI who is found [...] qac tid DIET HEART HEALTHY Recent Labs 01/12/20 2036 01/12/20 1639 01/12/20 1159 01/12/20 0625 01/11/20 [...] 01/09/2020 SIGNATURE: Ann Echeverria MD PATIENT NAME: Cici Woodward DATE: January 12, 2020 TIME: 12:15 PM PAGER: [phone] Normal [facility] Hemogramon 01-12-2020 Erythrocyte distribution width (RBC) [Ratio] 15.6 % High 11.7-14.4 [facility] Comment on above: Performed By: #### H A1C #### [place] [id number] Hematocrit (Bld) [Volume fraction] 32.6 % Low 34.1-44.9 [facility] Comment on above: Performed By: #### H A1C #### [address] [address] Hemoglobin (Bld) [Mass/Vol] 10.3 g/dL Low 11.2-15.7 [facility] Comment on above: Performed By: #### H A1C #### [facility] [address] [place], [place] [address] MCH (RBC) [Entitic mass] 29.9 pg Normal 25.6-32.2 [facility] Comment on above: Performed By: #### H A1C #### [address] [address] MCHC (RBC) [Mass/Vol] 31.6 % Normal 31.6-34.8 [facility] Comment on above: Performed By: #### H A1C #### [facility] [address] [place] [address] MCV (RBC) [Entitic vol] 94.5 fL Normal 79.4-94.8 [facility] Comment on above: Performed By: #### H A1C #### [facility] [address] [place] [address] Platelet mean volume (Bld) [Entitic vol] 12.6 fL High 9.4-12.3 [facility] Comment on above: Performed By: #### H A1C #### [place] [address] Platelets (Bld) [#/Vol] 124 thou/cmm Low 182-369 [facility] Comment on above: Performed By: #### H A1C #### [place] [address] RBC (Bld) [#/Vol] 3.45 mil/cmm Low 3.93-5.22 [facility] Comment on above: Performed By: #### H A1C #### [place] [address] RDW SD 52.6 fl High 36.4-46.3 [facility] Comment on above: Performed By: #### H A1C #### [place] [address] WBC (Bld) [#/Vol] 17.62 thou/cmm High 3.98-10.04 [facility] Comment on above: Performed By: #### H A1C #### [place] [address] NUTRITIONon 01-12-2020 NUTRITION HNO ID: [id number] Author: Franci Gramajo RD Service: Nutrition Therapy Author Type: Registered Dietitian Type: Nutrition Filed: 01/12/2020 2:26 PM Note Text: NUTRITION THERAPY PROGRESS NOTE SERVICE DATE: 01/12/2020 SERVICE TIME: 14:20 Nutrition Assessment: Recommended Malnutrition Diagnosis: No Malnutrition Identified (01/07/20 1300 : [address]) Estimated kilocalorie needs: 2253-0672 Calorie Calculation Method: 25-30 kcals/kg Estimated protein [...] HEALTHY SIGNATURE: Franci Gramajo RD PATIENT NAME: Cici Woodward DATE: January 12, 2020 TIME: 1:38 PM PAGER: [phone] Normal [facility] PROGRESSon 01-12-2020 PROGRESS HNO ID: [id number] Author: Cesar Marinelli Service: Pulmonary Disease Author [...] Disease, With Long-Term Current Use of Insulin ([facility]) History of Cva (Cerebrovascular Accident) Hyperuricemia Diarrhea, Unspecified Acs (Acute Coronary Syndrome) ([facility]) S/P Cabg X 4 PAST MEDICAL HISTORY Diagnosis Date - Abdominal pain, left lower quadrant - Abdominal pain, right lower quadrant - 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 Neuro Referral: Daija Alfonso, 10/19/08, Dx: [...] SINUS - Pure hypercholesterolemia - Stroke (cerebrum) ([facility]) 2013 - Type II or unspecified type diabetes mellitus without mention of complication, uncontrolled - Unspecified cardiovascular disease - Unspecified essential hypertension - Urgency of urination 2008 PAST SURGICAL HISTORY Procedure Laterality Date - ANGIOPLASTY 1988 - COLONOSCOP W/ OR W/O [facility] SPEC 08/29/07 - LAPAROSCOPIC CHOLEYCYSTECTOMY Cholecystectomy, [...] (01/09/20 1410) PEEP/CPAP (cm H2O): 5 (01/09/20 1410) HEMODYNAMIC DATA: Reviewed NUTRITION: Enteral Feeds: Yes [...] MG -- 2.3 2.2 ABG: Recent Labs 01/10/20 0410 PH 7.357 PO2 110.0* PCO2 33.8* Assessment/Plan [...] services: 30 minutes excluding procedures. SIGNATURE: Cesar Mairnelli DO PATIENT NAME: Cici Woodward DATE: January 12, 2020 TIME: 3:38 PM Normal [facility] PROGRESS HNO ID: [id number] Author: Cesar Burroughs Service: Nephrology Author Type: [...] this time ROS is (-) unless mentioned / 01/12/20 1027 01/12/20 1100 01/12/20 1115 01/12/20 1205 BP: 110/67 117/67 128/69 Pulse: 79 70 70 71 Resp: 18 18 Temp: TempSrc: SpO2: 97% 97% [...] Follow the lytes No need for the PRINTS AND DRAWINGS CURATOR We will follow Avoid all renal toxins Dose meds for GFR < 30 Normal [facility] PROGRESS HNO ID: [id number] Author: Vish Shin) Antony Service: Cardiovascular Surgery Author Type: Physician Arts Manager Type: Progress Notes Filed: 01/12/2020 1:24 PM [...] today's visit: CXR: Status post removal of [place]-Veto catheter. ?Left-sided chest tube, mediastinal drain, and [...] 80/ Cr > 1.5) -CHADS2 score: 6 -[id number] VASc score: 9 Anticipated post-op respiratory insufficiency [...] CXR SIGNATURE: Vish Hardy PA-C PATIENT NAME: Cici Woodward DATE: January 12, 2020 TIME: 12:00 PM PAGER/CONTACT #: [phone] Normal [facility] THERAPY NTon 01-12-2020 THERAPY NT HNO ID: [id number] Author: Myranda (Pt) Arvin Service: Physical Therapy Author Type: Physical Therapist Type: Therapy (PT/OT/Speech/Resp) Filed: 01/12/2020 4:13 PM Note Text: Physical Therapy Evaluation SERVICE DATE: 01/12/2020 SERVICE TIME: 1006 to 1030 ROOM: [place] [id number] Recommended Discharge Disposition: Acute Rehab Recommended Discharge [...] ess on feet Interventions Provided: Evaluation;Gait Training (89687) $ Evaluation-Moderate (84402) Billed Units: 1 unit History and examination of body systems see assessment section above. This patient?s clinical presentation is evolving. The patient required a moderate complexity evaluation. Gait Training (09857) Treatment Minutes: 9 1 unit Skilled Intervention(s): [...] pushing cardiac cart. Patient ambulating with slow dai and shuffling steps. Patient able to ambulate [...] year old female presented with STEM[facility] at [facility] after going for CABG eval. 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 SIGNATURE: Myranda Sheridan PT PATIENT NAME: Cici Woodward DATE: January 12, 2020 TIME: 10:38 AM Normal [facility] XR CHEST 1V FRONTALon 2019 XR CHEST [...] Lines, tubes, and devices: Right internal jugular [place]-Veto catheter has been removed. A venous sheath remains in place. Left-sided chest tube, mediastinal drain, pericardial drain have been removed. Lungs and pleura: No pneumothorax. Subsegmental atelectasis at both lung bases. Cardiomediastinal silhouette: Heart size normal. Other: None. IMPRESSION: Status post removal of [place]-Veto catheter. Left-sided chest tube, mediastinal drain, and pericardial drain have been removed. Document Scanner: KURT Transcribe Date/Time: Jan 12 2020 7:02A Dictated by : MICKY PA MD This examination was interpreted and the report reviewed and electronically signed by: MICKY PA MD on Jan 12 2020 7:03AM EST Normal [facility] Basic Panelon 01-11-2020 Creatinine [Mass/Vol] 1.81 mg/dL High 0.51-0.95 [facility] Comment on above: Result Comment: Use of this assay is not recommended for patients undergoing treatment with phenindione, due to the potential for falsely depressed results. Performed By: #### H A1C #### [address] [address] Anion gap [Moles/Vol] 12 mmol/L Normal 8-16 [facility] Comment on above: Performed By: #### H A1C #### [address] [address] CO2 [Moles/Vol] 20 mmol/L Low 21-32 [facility] Comment on above: Performed By: #### H A1C #### [address] [address] Urea nitrogen [Mass/Vol] 39 mg/dL High 7-18 [facility] Comment on above: Performed By: #### H A1C #### [address] [address] Calcium [Mass/Vol] 8.2 mg/dL Low 8.5-10.1 [facility] Comment on above: Performed By: #### H A1C #### [facility] [address] [place], [place] [address] Glucose [Mass/Vol] 69 mg/dL Low 70-99 [facility] Comment on above: Performed By: #### H A1C #### [facility] [address] [place], [place] [address] Chloride [Moles/Vol] 111 mmol/L High 98-107 [facility] Comment on above: Performed By: #### H A1C #### [facility] [address] [place], [place] [address] Potassium [Moles/Vol] 4.8 mmol/L Normal 3.5-5.1 [facility] Comment on above: Performed By: #### H A1C #### [facility] [address] [place], [place] [address] Sodium [Moles/Vol] 138 mmol/L Normal 136-145 [facility] Comment on above: Performed By: #### H A1C #### [facility] [address] [place], [place] [address] CONSULT PROGon 01-11-2020 CONSULT PROG HNO ID: [id number] Author: Ann Echeverria Service: Endocrinology Author Type: [...] 30 years ago. ?H/o CAD and remote ND now admitted with NSTEMI who is found [...] 01/09/2020 SIGNATURE: Ann Echeverria MD PATIENT NAME: Cici oWodward DATE: January 11, 2020 TIME: 1:00 PM PAGER: [phone] Normal [facility] Hemogramon 01-11-2020 Erythrocyte distribution width (RBC) [Ratio] 15.9 % High 11.7-14.4 [facility] Comment on above: Performed By: #### H A1C #### [facility] [address] [place] [address] Hematocrit (Bld) [Volume fraction] 33.9 % Low 34.1-44.9 [facility] Comment on above: Performed By: #### H A1C #### [facility] [address] [place] [address] Hemoglobin (Bld) [Mass/Vol] 10.7 g/dL Low 11.2-15.7 [facility] Comment on above: Performed By: #### H A1C #### [facility] [address] [place] [address] MCH (RBC) [Entitic mass] 29.9 pg Normal 25.6-32.2 [facility] Comment on above: Performed By: #### H A1C #### [facility] [address] [place] [address] MCHC (RBC) [Mass/Vol] 31.6 % Normal 31.6-34.8 [facility] Comment on above: Performed By: #### H A1C #### [facility] [address] [place] [address] MCV (RBC) [Entitic vol] 94.7 fL Normal 79.4-94.8 [facility] Comment on above: Performed By: #### H A1C #### [facility] [address] [place] [address] Platelet mean volume (Bld) [Entitic vol] 12.5 fL High 9.4-12.3 [facility] Comment on above: Performed By: #### H A1C #### [facility] [address] [place] [address] Platelets (Bld) [#/Vol] 108 thou/cmm Low 182-369 [facility] Comment on above: Performed By: #### H A1C #### [facility] [address] [place] [address] RBC (Bld) [#/Vol] 3.58 mil/cmm Low 3.93-5.22 [facility] Comment on above: Performed By: #### H A1C #### [facility] [address] [place] [address] RDW SD 53.9 fl High 36.4-46.3 [facility] Comment on above: Performed By: #### H A1C #### [facility] [address] [place] [address] WBC (Bld) [#/Vol] 18.11 thou/cmm High 3.98-10.04 [facility] Comment on above: Performed By: #### H A1C #### [facility] [address] [place] [address] Magnesium Bloodon 01-11-2020 Magnesium [Mass/Vol] 2.3 mg/dL Normal 1.6-2.6 [facility] Comment on above: Performed By: #### H A1C #### [facility] [address] [place] [address] NURSING PROGon 01-11-2020 NURSING PROG HNO ID: [id number] Author: Rama (Rn) RITA Barraza Service: Nursing Author Type: Registered Nurse Type: Nursing Progress Note Filed: 01/11/2020 3:45 PM Note Text: [place] removed from RT IJ.Tolerated well. No ectopy noted. Introducer cap placed over opening.Pt tolerated well. Normal [facility] PROGRESSon 01-11-2020 PROGRESS HNO ID: [id number] Author: Yanet Rivera Service: Thoracic Surgery Author Type: Physician Type: Progress Notes Filed: 01/11/2020 11:12 AM Note Text: CT Surg POD #2 Patient seen with care team, bedside nurse and family member at bedside. Labs, data, cxr, and careplan reviewed. P-as ordered. Normal [facility] PROGRESS HNO ID: [id number] Author: Anson Beaver Service: Critical Care Author [...] 97% on 4 liters NC Right IJ [place] in place Chest tubes with no [...] 108 ? CXR?reviewed and shows right IJ [place], chest tubes in place; increase in bilateral [...] year old white woman with PMH of ND/ CAD, DM-II, hx of CVA, HTN, diverticulosis, gout, and HL had initially presented to [facility] for chest pain, found to have [...] inotropes - will need gentle diuresis - [place] can come out today and also chest [...] ? SIGNATURE: Anson Beaver MD [facility]:[phone] ICU Checklist Last Documented/Reviewed time: 01/11/2020 9:11 [...] Is Patient Clinically Ready to Transfer to [facility] or SDU?: No Discharge Planning: Home ? Normal [facility] PROGRESS HNO ID: [id number] Author: Gatito Godinez Service: Nephrology Author Type: [...] this time ROS is (-) unless mentioned 01/11/20 0600 01/11/20 0700 01/11/20 0730 01/11/20 [...] follow Do not anticipate any need for PRINTS AND DRAWINGS CURATOR Avoid all ISABELLA-I , for 72 h until cr is stable We will follow/call if any questions Paxton Godinez MD [facility] Normal [facility] XR CHEST 1V FRONTALon 2019 XR CHEST [...] internal jugular central venous sheath with associated [place] catheter, catheter tip overlies the main pulmonary [...] support lines and catheters, as described above. Document Scanner: KURT Transcribe Date/Time: Jan 11 2020 7:03A Dictated by : JEFFY VAUGHN MD This examination was interpreted and the report reviewed and electronically signed by: JEFFY VAUGHN MD on Jan 11 2020 7:06AM EST Normal [facility] ANES Yadi 01-10-2020 ANES POST HNO ID: [id number] Author: Los Villeda Service: Anesthesiology Author Type: Physician Type: Anesthesia PostOp Filed: 01/10/2020 11:36 AM Note Text: POST ANESTHESIA EVALUATION NOTE SERVICE DATE: 01/10/2020 SERVICE TIME: 1134 : 1937 Vitals: 01/10/20 0400 01/10/20 0500 [...] staff. SIGNATURE: [place] Villeda MD PATIENT NAME: Cici Woodward DATE: January 10, 2020 TIME: 11:35 AM PAGER/CONTACT #: Normal [facility] BRIEF OP NOTon 01-10-2020 BRIEF OP NOT HNO ID: [id number] Author: Darwin Rojo (Pa) Service: Cardiac Surgery Author Type: Physician Arts Manager Type: Brief Op Note Filed: 01/10/2020 8:45 AM Note Text: CARDIOTHORACIC BRIEF OP NOTE LOG ID: [id number] SURGERY/PROCEDURE DATE: 01/09/2020 INCISION/PROCEDURE START TIME: 8:17 AM INCISION CLOSE/PROCEDURE END TIME: 1:46 PM SURGEON(S) AND INSIDE BARREL LATHE OPERATOR(S): Surgeon(s) and Role: * Yanet Rivera - Primary Physician Arts Manager: Darwin Rojo (Pa) Joint Cleaning Machine Operator: Juana Baker SA Joint Cleaning Machine Operator (Relief): Tami Paige SA PROCEDURES AND ANESTHESIA: [...] required. The leg was wrapped with an ISABELLA bandage. ESTIMATED BLOOD LOSS: 50 ml SPECIMENS: None COMPLICATIONS: None PREOPERATIVE DIAGNOSIS: coronary artery disease POSTOPERATIVE DIAGNOSIS: coronary artery disease SIGNATURE: Darwin Rojo PA-C PATIENT NAME: Cici Woodward DATE: January 10, 2020 TIME: 8:33 AM PAGER/CONTACT #: [phone] [facility] Basic Panelon 01-10-2020 Creatinine [Mass/Vol] 1.55 mg/dL High 0.51-0.95 [facility] Comment on above: Result Comment: Use of this assay is not recommended for patients undergoing treatment with phenindione, due to the potential for falsely depressed results. Performed By: #### P BNP #### [facility] [address] [place], [place] [address] Glucose [Mass/Vol] 122 mg/dL High 70-99 [facility] Comment on above: Performed By: #### P BNP #### [facility] [address] [place], [place] [address] Anion gap [Moles/Vol] 13 mmol/L Normal 8-16 [facility] Comment on above: Performed By: #### P BNP #### [address] [address] Calcium [Mass/Vol] 8.0 mg/dL Low 8.5-10.1 [facility] Comment on above: Performed By: #### P BNP #### [address] [address] CO2 [Moles/Vol] 19 mmol/L Low 21-32 [facility] Comment on above: Performed By: #### P BNP #### [address] [address] Urea nitrogen [Mass/Vol] 30 mg/dL High 7-18 [facility] Comment on above: Performed By: #### P BNP #### [address] [address] Chloride [Moles/Vol] 116 mmol/L High 98-107 [facility] Comment on above: Performed By: #### P BNP #### [address] [address] Potassium [Moles/Vol] 4.8 mmol/L Normal 3.5-5.1 [facility] Comment on above: Performed By: #### P BNP #### [address] [address] Sodium [Moles/Vol] 143 mmol/L Normal 136-145 [facility] Comment on above: Performed By: #### P BNP #### [address] [address] Blood Gas Arterialon 020 Base Excess -5.8 mmol/L Low -3.0-3.0 [facility] Comment on above: Performed By: #### P BNP #### [facility] [address] [place] [address] HCO3 (Bld) [Moles/Vol] 18.6 mmol/L Low 21.0-28.0 [facility] Comment on above: Performed By: #### P BNP #### [place] [address] O2% Sat Arterial 98.3 % Normal 96.0-100.0 [facility] Comment on above: Performed By: #### P BNP #### [place] [address] PCO2 Arterial 33.8 mm Hg Low 35.0-45.0 [facility] Comment on above: Performed By: #### P BNP #### [place] [address] pH Arterial 7.357 Normal 7.350-7.450 [facility] Comment on above: Performed By: #### P BNP #### [place] [address] PO2 Arterial 110.0 mm Hg High 83.0-108.0 [facility] Comment on above: Performed By: #### P BNP #### [place] [address] FIO2 32 % Normal [facility] Comment on above: Performed By: #### P BNP #### [place] [address] CONSULT PROGon 01-10-2020 CONSULT PROG HNO ID: [id number] Author: Ann Echeverria Service: Endocrinology Author Type: [...] 30 years ago. ?H/o CAD and remote ND now admitted with NSTEMI who is found [...] 01/09/2020 SIGNATURE: Ann Echeverria MD PATIENT NAME: Cici Woodward DATE: January 10, 2020 TIME: 4:15 PM PAGER: [phone] Normal [facility] Hemogramon 01-10-2020 Erythrocyte distribution width (RBC) [Ratio] 15.4 % High 11.7-14.4 [facility] Comment on above: Performed By: #### P BNP #### [place] [address] Hematocrit (Bld) [Volume fraction] 33.8 % Low 34.1-44.9 [facility] Comment on above: Performed By: #### P BNP #### [place] [address] Hemoglobin (Bld) [Mass/Vol] 11.1 g/dL Low 11.2-15.7 [facility] Comment on above: Performed By: #### P BNP #### [place] [address] MCH (RBC) [Entitic mass] 30.3 pg Normal 25.6-32.2 [facility] Comment on above: Performed By: #### P BNP #### [place] [address] MCHC (RBC) [Mass/Vol] 32.8 % Normal 31.6-34.8 [facility] Comment on above: Performed By: #### P BNP #### [place] [address] MCV (RBC) [Entitic vol] 92.3 fL Normal 79.4-94.8 [facility] Comment on above: Performed By: #### P BNP #### [place] [address] Platelet mean volume (Bld) [Entitic vol] 11.6 fL Normal 9.4-12.3 [facility] Comment on above: Performed By: #### P BNP #### [address] [place], [place] [address] Platelets (Bld) [#/Vol] 150 thou/cmm Low 182-369 [facility] Comment on above: Performed By: #### P BNP #### [facility] [address] [place] [address] RBC (Bld) [#/Vol] 3.66 mil/cmm Low 3.93-5.22 [facility] Comment on above: Performed By: #### P BNP #### [facility] [address] [place] [address] RDW SD 50.5 fl High 36.4-46.3 [facility] Comment on above: Performed By: #### P BNP #### [facility] [address] [place] [address] WBC (Bld) [#/Vol] 20.17 thou/cmm High 3.98-10.04 [facility] Comment on above: Performed By: #### P BNP #### [facility] [address] [place] [address] Magnesium Bloodon 01-10-2020 Magnesium [Mass/Vol] 2.2 mg/dL Normal 1.6-2.6 [facility] Comment on above: Performed By: #### P BNP #### [facility] [address] [place] [address] PROGRESSon 01-10-2020 PROGRESS HNO ID: [id number] Author: Tami Marte (Pa) Service: Cardiac Surgery Author Type: Physician Arts Manager Type: Progress Notes Filed: 01/10/2020 3:27 PM [...] of endotracheal and enteric tubes. Recent Labs 01/10/20 0410 01/09/20 1415 01/09/20 1344 01/09/20 0535 01/08/20 0435 RBC 3.66* [...] in this interval not displayed. Recent Labs 01/10/20 0410 01/09/20 1415 01/09/20 [...] 40 mg ORAL DAILY (6 AM) Tami (Randy) Rosanna - insulin regular iv infusion 100 [...] 1 Patch (SALONPAS) 1 Patch TRANSDERMAL DAILY Tami (Pa) Rosanna 1 Patch at 01/10/20 1218 [...] CBC SIGNATURE: Tami Marte PA-C PATIENT NAME: Cici Woodward DATE: January 10, 2020 TIME: 2:56 PM PAGER/CONTACT #:[phone] Normal [facility] PROGRESS HNO ID: [id number] Author: Anson Beaver Service: Critical Care Author Type: Physician Type: Progress Notes Filed: 01/10/2020 11:48 AM Note Text: S/p extubation y'day. Pain is 7/10 and also has some back pain. No nausea or vomiting. No other complaints. Full ROS with the pt and RN done. On exam: 120/ 52, 89, 19, 37, 99% on 3 L NC Right IJ [place] Chest tubes with no leak Right [...] ? CXR reviewed and shows right IJ [place], chest tubes in place; left small effusion/ [...] year old white woman with PMH of ND/ CAD, DM-II, hx of CVA, HTN, diverticulosis, gout, and HL had initially presented to [facility] for chest pain, found to have [...] Dr Rivera - will follow with you ? Code status: full ? PROGNOSIS: Guarded ? Patient/Family Updated: d/w pt and family at the bedside ? Discussed with RN. All documentation from previous visit of 01/09/2020 was copied and pasted, documentation has been reviewed and edited as necessary for today's visit. ? SIGNATURE: Anson Beaver MD [facility]:[phone] ICU Checklist Last Documented/Reviewed time: 01/10/2020 8:49 [...] Is Patient Clinically Ready to Transfer to [facility] or SDU?: No Discharge Planning: Home Normal [facility] PROGRESS HNO ID: [id number] Author: Gatito Goidnez Service: Nephrology Author Type: Physician Type: Progress Notes Filed: 01/10/2020 2:09 PM Note Text[facility] Subjective/ INTERVAL [...] time ROS is (-) unless mentioned ? / 01/10/20 0600 01/10/20 0700 01/10/20 0730 01/10/20 [...] follow Do not anticipate any need for PRINTS AND DRAWINGS CURATOR Avoid all ISABELLA-I , for 72 h until cr is stable and off pressors We will follow/call if any questions Paxton Godinez MD [facility] Normal [facility] Protimeon 01-10-2020 INR Coag (PPP) [Relative time] 1.03 {INR} Normal 0.90-1.30 [facility] Comment on above: Result Comment: Camille min K Antagonist (VKA) Therapeutic Range: INR 2 to 3 (Target INR of 2.5) Note: For patients treated with VKA drugs, such as warfarin, the [place] [employer] 2012 Guideline recommends [...] Chest 2012; 141:7S-47S Tomi MCLEAN et al. JAC 2017; 70: 252-289 Performed By: #### H A1C #### [address] [address] PT Coag (PPP) [Time] 11.1 s Normal 9.7-13.0 [facility] Comment on above: Performed By: #### H A1C #### [address] [address] XR CHEST 1V FRONTALon 2019 XR CHEST [...] internal jugular central venous sheath with associated [place] catheter with catheter tip overlying the region [...] additional support lines and catheters, as described. Document Scanner: PSCB Transcribe Date/Time: Jan 10 2020 7:40A Dictated by : JEFFY VAUGHN MD This examination was interpreted and the report reviewed and electronically signed by: JEFFY VAUGHN MD on Jan 10 2020 7:44AM EST Normal [facility] ACT Arterial Panel (i-STAT)o n 01-09-2020 Kaolin ACT ( i-STAT) 125 sec Normal 74-137 [facility] Comment on above: Performed By: #### L IPD2 #### [facility] [address] [place] [address] ANES PREOPon 01-09-2020 ANES PREOP HNO ID: [id number] Author: Steven Christiansen Service: Anesthesiology Author Type: [...] Hyperuricemia Diarrhea, Unspecified Acs (Acute Coronary Syndrome) ([facility]) PAST MEDICAL HISTORY Diagnosis Date - Abdominal [...] SINUS - Pure hypercholesterolemia - Stroke (cerebrum) ([facility]) 2013 - Type II or unspecified type diabetes mellitus without mention of complication, uncontrolled - Unspecified cardiovascular disease - Unspecified essential hypertension - Urgency of urination 2008 PAST SURGICAL HISTORY Procedure Laterality Date - ANGIOPLASTY 1988 - COLONOSCOP W/ OR W/O [facility] SPEC 08/29/07 - LAPAROSCOPIC CHOLEYCYSTECTOMY Cholecystectomy, [...] Drop in both eyes twice daily. - [place]-3 Fatty Acids 1,250 mg cap Take 1 [...] 0.9% iv infusion X (OR/PROCEDURE) CONTINUOUS Yanet Westley Rivera 1,000 mL at 01/09/20 0854 - [MAR Hold due to Transfer] white petrolatum-mineral oil opthalmic ointment (Soothe Lubricant Eye Night Time Ointment) BOTH EYES AT BEDTIME Melisa Harkins) DAYANA Reza - [MAR Hold due to Transfer] metoprolol tartrate (short acting) 25 mg tab(s) (LOPRESSOR) 25 mg ORAL q 12 H Melisa Harkins) DAYANA Reza 25 mg at 01/09/20 0542 - [MAR Hold due to Transfer] hydrALAZINE 10 mg injection (APRESOLINE) 10 mg INTRAVENOUS q 6 H PRN Melisa Harkins) DAYANA Reza - [MAR Hold due to Transfer] hydrOXYzine HCl 12.5 mg tab(s) (ATARAX) 12.5 mg ORAL q 8 H PRN Chandan Riddleungwu 12.5 mg at 01/08/20 2225 - [MAR Hold due to Transfer] mupirocin 2 % ointment (BACTROBAN) TOPICAL TID Patience Adler - [MAR Hold due to Transfer] folic acid 1 mg tab(s) 1 mg ORAL DAILY Patience Adler 1 mg at 01/08/20 0904 - [MAR Hold due to Transfer] ferrous sulfate 325 mg tab(s) 325 mg ORAL BID w MEALS Patience (Nini) Kann 325 mg at 01/08/20 1828 - [MAR Hold due to Transfer] senna-docusate 8.6-50 mg 1 tablet (SENNA-S) 1 tablet ORAL BID Patience (Donte Adler - [MAR Hold due to Transfer] ascorbic acid (vitamin C) 500 mg tab(s) (VITAMIN C) 500 mg ORAL BID Patience (Nini) Micheln 500 mg at 01/08/202101 - [MAR Hold due to Transfer] insulin lispro 0-10 Units pen (rapid acting) (HumaLOG KWIKPEN) 0-10 Units SUBCUTANEOUS w MEALS Patience (Nini) Vitor 2 Units at 01/08/201827 - [MAR Hold due to Transfer] insulin glargine 12 Units pen (long acting) (LANTUS SOLOSTAR, BASAGLAR RASHMIIKPEN) 12 Units SUBCUTANEOUS DAILY (8 AM) Patience Olvera) Vitor 12 Units at 01/08/20 09 - [MAR Hold due to Transfer] insulin lispro 8 Units pen (rapid acting) (HumaLOG KWIKPEN) 8 Units SUBCUTANEOUS w MEALS Patience (Nini) Vitor 8 Units at 01/08/201828 - [MAR Hold due to Transfer] albuterol 2.5 mg /3 mL (0.083 %) 2.5 mg (PROVENTIL) 2.5 mg INHALATION q 4 H PRN Patience (Nini) Vitor - [MAR Hold due to Transfer] amLODIPine 10 mg tab(s) (NORVASC) 10 mg ORAL DAILY Patience (Nini) Vitor 10 mg at 01/08/20903 - [MAR Hold due to Transfer] allopurinol 100 mg tab(s) (ZYLOPRIM) 100 mg ORAL DAILY Patience (Nini) Micheln 100 mg at 01/08/20903 - [MAR Hold due to Transfer] aspirin 81 mg chewable tab(s) 81 mg ORAL DAILY Patience (Nini) Vitor 81 mg at 01/09/20 0542 - [MAR Hold due to Transfer] nitroglycerin sublingual 0.4 mg tab(s) (NITROQUICK) 0.4 mg SUBLINGUAL PRN Patience (Nini) Vitor - [MAR Hold due to Transfer] potassium chloride ER 20-40 mEq tab(s) (K-DUR, KLOR-CON) 20-40 mEq ORAL/FEEDING TUBE PRN Patience (Res) Vitor Or - [MAR Hold due to Transfer] potassium chloride iv piggyback 20 mEq/100 mL 20 mEq INTRAVENOUS PRN Patience (Res) Vitor - [MAR Hold due to Transfer] magnesium sulfate in water 2 g in sterile water 50 ml 2 g INTRAVENOUS PRN Patience (Res) Vitor - [MAR Hold due to Transfer] sodium phosphate 45 mmol in NaCl 0.9% 250 mL 45 mmol INTRAVENOUS PRN Patience (Res) Vitor - [MAR Hold due to Transfer] calcium gluconate 4 g in NaCl 0.9% 250 mL 4 g INTRAVENOUS PRN Patience (Res) Kann - [MAR Hold due to Transfer] heparin RATE CHANGE bolus 1,000-4,000 Units for subtherapeutic aptt results 1,000-4,000 Units INTRAVENOUS PRN Melisa (Loan Representative) DAYANA Reza 2,200 Units at 01/04/20 0144 - [...] H Patience (Res) Kann 3 mL at 01/08/206 - [MAR Hold due to Transfer] atorvastatin [...] Surgery/Procedure. SIGNATURE: Steven Christiansen MD PATIENT NAME: Cici Woodward DATE: January 09, 2020 TIME: 9:20 AM CSN: [id number] Normal [facility] Activated PTTon 01-09-2020 aPTT Coag (Bld) [Time] 29.2 s Normal 23.0-32.4 [facility] Comment on above: Result [...] laboratory APTT reagent in use throughout the [facility]. Performed By: #### P BNP #### [place] [address] Basic Panelon 01-09-2020 Creatinine [Mass/Vol] 1.26 mg/dL High 0.51-0.95 [facility] Comment on above: Result Comment: Use of this assay is not recommended for patients undergoing treatment with phenindione, due to the potential for falsely depressed results. Performed By: #### P BNP #### [place] [address] Glucose [Mass/Vol] 187 mg/dL High 70-99 [facility] Comment on above: Performed By: #### P BNP #### [place] [address] Anion gap [Moles/Vol] 13 mmol/L Normal 8-16 [facility] Comment on above: Performed By: #### P BNP #### [place] [address] Calcium [Mass/Vol] 8.5 mg/dL Normal 8.5-10.1 [facility] Comment on above: Performed By: #### P BNP #### [facility] [address] [place] [address] CO2 [Moles/Vol] 20 mmol/L Low 21-32 [facility] Comment on above: Performed By: #### P BNP #### [facility] [address] [place] [address] Performed By: #### L IPD2 #### [facility] [address] [place] [address] Urea nitrogen [Mass/Vol] 28 mg/dL High 7-18 [facility] Comment on above: Performed By: #### P BNP #### [place] [address] Chloride [Moles/Vol] 115 mmol/L High 98-107 [facility] Comment on above: Performed By: #### P BNP #### [place] [address] Potassium [Moles/Vol] 3.5 mmol/L Normal 3.5-5.1 [facility] Comment on above: Performed By: #### P BNP #### [place] [address] Sodium [Moles/Vol] 144 mmol/L Normal 136-145 [facility] Comment on above: Performed By: #### P BNP #### [place] [address] Creatinine [Mass/Vol] 1.19 mg/dL High 0.51-0.95 [facility] Comment on above: Result Comment: Use of this assay is not recommended for patients undergoing treatment with phenindione, due to the potential for falsely depressed results. Performed By: #### L IPD2 #### [place] [address] Anion gap [Moles/Vol] 10 mmol/L Normal 8-16 [facility] Comment on above: Performed By: #### L IPD2 #### [place] [address] Calcium [Mass/Vol] 8.8 mg/dL Normal 8.5-10.1 [facility] Comment on above: Performed By: #### L IPD2 #### [facility] [address] [place], [place] [address] Glucose [Mass/Vol] 161 mg/dL High 70-99 [facility] Comment on above: Performed By: #### L IPD2 #### [facility] [address] [place], [place] [address] Urea nitrogen [Mass/Vol] 33 mg/dL High 7-18 [facility] Comment on above: Performed By: #### L IPD2 #### [facility] [address] [place], [place] [address] Chloride [Moles/Vol] 113 mmol/L High 98-107 [facility] Comment on above: Performed By: #### L IPD2 #### [facility] [address] [place], [place] [address] Potassium [Moles/Vol] 4.0 mmol/L Normal 3.5-5.1 [facility] Comment on above: Performed By: #### L IPD2 #### [facility] [address] [place], [place] [address] Sodium [Moles/Vol] 139 mmol/L Normal 136-145 [facility] Comment on above: Performed By: #### L IPD2 #### [facility] [address] [place], [place] [address] Blood Gas Arterialon 020 Base Excess -6.5 mmol/L Low -3.0-3.0 [facility] Comment on above: Performed By: #### L IPD2 #### [facility] [address] [place], [place] [address] HCO3 (Bld) [Moles/Vol] 18.2 mmol/L Low 21.0-28.0 [facility] Comment on above: Performed By: #### L IPD2 #### [facility] [address] [place], [place] [address] O2% Sat Arterial 96.4 % Normal 96.0-100.0 [facility] Comment on above: Performed By: #### L IPD2 #### [facility] [address] [place], [place] [address] PCO2 Arterial 33.9 mm Hg Low 35.0-45.0 [facility] Comment on above: Performed By: #### L IPD2 #### [facility] [address] [place], [place] [address] pH Arterial 7.343 Low 7.350-7.450 [facility] Comment on above: Performed By: #### L IPD2 #### [facility] [address] [place], [place] [address] PO2 Arterial 78.9 mm Hg Low 83.0-108.0 [facility] Comment on above: Performed By: #### L IPD2 #### [facility] [address] [place] [address] FIO2 50 % Normal [facility] Comment on above: Performed By: #### L IPD2 #### [facility] [address] [place] [address] CG8 Arterial Panel (i-STAT)o n 01-09-2020 Base Excess (i-STAT) -1.0 mmol/L Normal -2.0 to 3.0 [facility] Comment on above: Performed By: #### L IPD2 #### [facility] [address] [place] [address] Glucose [Mass/Vol] 194 mg/dL High 70-99 [facility] Comment on above: Performed By: #### L IPD2 #### [facility] [address] [place] [address] HCO3 (Bld) [Moles/Vol] 24.4 mmol/L Normal 22.0-26.0 [facility] Comment on above: Performed By: #### L IPD2 #### [facility] [address] [place] [address] Hematocrit (Bld) [Volume fraction] 20 %PCV Critically low 38-51 [facility] Comment on above: Performed By: #### L IPD2 #### [facility] [address] [place], [place] [address] Hemoglobin (Bld) [Mass/Vol] 6.8 g/dL Critically low 12.0-17.0 [facility] Comment on above: Performed By: #### L IPD2 #### [facility] [address] [place] [address] Ionized Calcium (iSTAT) 4.4 mg/dL Low 4.5-5.3 [facility] Comment on above: Performed By: #### L IPD2 #### [facility] [address] [place], [place] [address] O2% Sat. (i-STAT) 100.0 % High 95.0-98.0 [facility] Comment on above: Performed By: #### L IPD2 #### [place] [address] Oxygen (Bld) [Partial pressure] 340.0 mm Hg High 80.0-105.0 [facility] Comment on above: Performed By: #### L IPD2 #### [place] [address] PCO2 (i-STAT) 40.0 mm Hg Normal 35.0-45.0 [facility] Comment on above: Performed By: #### L IPD2 #### [place] [address] pH (Bld) 7.393 [pH] Normal 7.350-7.450 [facility] Comment on above: Performed By: #### L IPD2 #### [place] [address] Potassium [Moles/Vol] 4.4 mmol/L Normal 3.5-4.9 [facility] Comment on above: Performed By: #### L IPD2 #### [facility] [address] [place], [place] [address] Sodium [Moles/Vol] 141 mmol/L Normal 138-146 [facility] Comment on above: Performed By: #### L IPD2 #### [facility] [address] [place], [place] [address] Total CO2 (i-STAT) 26 mmol/L Normal 23-27 [facility] Comment on above: Performed By: #### L IPD2 #### [place] [address] CG8 Venous Panel (i-STAT)on 01-09-2020 Base Excess (i-STAT) -8.0 mmol/L Normal -2.0 to 3.0 [facility] Comment on above: Performed By: #### L IPD2 #### [facility] [address] [place] [address] Glucose [Mass/Vol] 148 mg/dL High 70-99 [facility] Comment on above: Performed By: #### L IPD2 #### [facility] [address] [place] [address] HCO3 (Bld) [Moles/Vol] 19.0 mmol/L Low 23.0-28.0 [facility] Comment on above: Performed By: #### L IPD2 #### [place] [address] Hematocrit (Bld) [Volume fraction] 25 %PCV Low 38-51 [facility] Comment on above: Performed By: #### L IPD2 #### [facility] [address] [place] [address] Hemoglobin (Bld) [Mass/Vol] 8.5 g/dL Low 12.0-17.0 [facility] Comment on above: Performed By: #### L IPD2 #### [place] [address] Ionized Calcium (iSTAT) 4.7 mg/dL Normal 4.5-5.3 [facility] Comment on above: Performed By: #### L IPD2 #### [facility] [address] [place] [address] O2% Sat. (i-STAT) 75.0 % Normal 35.0-85.0 [facility] Comment on above: Performed By: #### L IPD2 #### [place] [address] Oxygen (Bld) [Partial pressure] 46.0 mm Hg Normal 20.0-50.0 [facility] Comment on above: Performed By: #### L IPD2 #### [place] [address] PCO2 (i-STAT) 41.4 mm Hg Normal 41.0-51.0 [facility] Comment on above: Performed By: #### L IPD2 #### [facility] [address] [place] [address] pH (Bld) 7.271 [pH] Low 7.310-7.410 [facility] Comment on above: Performed By: #### L IPD2 #### [facility] [address] [place] [address] Potassium [Moles/Vol] 4.1 mmol/L Normal 3.5-4.9 [facility] Comment on above: Performed By: #### L IPD2 #### [facility] [address] [place] [address] Sodium [Moles/Vol] 137 mmol/L Low 138-146 [facility] Comment on above: Performed By: #### L IPD2 #### [facility] [address] [place] [address] Total CO2 (i-STAT) 20 mmol/L Low 24-29 [facility] Comment on above: Performed By: #### L IPD2 #### [facility] [address] [place] [address] CONSULTon 01-09-2020 CONSULT HNO ID: [id number] Author: Anson Beaver Service: Critical Care Author Type: Physician Type: Consults Filed: 01/09/2020 3:51 PM Note Text: Asked to see this patient for post-op ICU care after CABG. Notes and meds reviewed. Full ROS with the RN done. No ROS with the pt possible. Ms Woodward is an 84 year old white woman with PMH of ND/ CAD, DM-II, hx of CVA, HTN, diverticulosis, gout, and HL had initially presented to [facility] for chest pain, found to have STEMI. She was then transferred here for further care. She was found to have multi-vessel CAD and so underwent CABG today. PMH; as above PSH: LHC, angioplasty, clau, colonoscopy, surgery for tubal FH: Mom had ND, dad - heart disease, brother with mouth cancer SH: Non-smoker Meds: Reviewed Allergies: Reviewed. On exam: 126/ 57, 80, 19, 36.3, 100% on 50% vent SIMV: 500/ 12/ 505/ 5/ PS 10 Still under the influence of GA Right IJ [place]-Veto ETT and [place]G [place] Chest tubes with [...] 182 CXR reviewed and shows right IJ [place], ETT, OG, chest tubes in place; left [...] year old white woman with PMH of ND/ CAD, DM-II, hx of CVA, HTN, diverticulosis, gout, and HL had initially presented to [facility] for chest pain, found to have [...] minutes. SIGNATURE: Anson Beaver MD [facility] PAGER:[phone] [facility] CONSULT PROGon 01-09-2020 CONSULT PROG HNO ID: [id number] Author: Ann Echeverria Service: Endocrinology Author Type: [...] 30 years ago. ?H/o CAD and remote ND now admitted with NSTEMI who is found [...] 01/09/2020 SIGNATURE: Ann Echeverria MD PATIENT NAME: Cici Woodward DATE: January 09, 2020 TIME: 7:31 PM PAGER: [phone] Normal [facility] ECG COMPLETEon 01-09-2020 ECG COMPLETE NAME : CICI WOODWARD PID : [id number] : 1935 Gender : Female Race : ORD : [id number] Procedure Date : Jan 09 2020 14:14:43 Edit Date : Jan 11 2020 12:14:15 Diagnosis:SINUS TACHYCARDIA LEFT AXIS DEVIATION RIGHT BUNDLE BRANCH BLOCK INFERIOR INFARCT , AGE UNDETERMINED ABNORMAL ECG NO PREVIOUS ECGS AVAILABLE Confirmed by MD MAS SERGEY ([id number]) on 01/11/2020 12:14:14 PM Ventricular Rate : 103 BPM Atrial Rate : 103 BPM P-R Interval : 170 ms QRS Duration : 126 ms Q-T Interval : 402 ms QTC Calculation(Bazett) : 526 ms P Seney : 84 degrees R Seney : -59 degrees T Seney : 84 degrees Test Reason : Post-OP Location : 6 : [place] [address] Overread By : MD MAS SERGEY Edited By : MD MAS SERGEY Referred By : ISIDRO WOLF Acquired by : YAKELIN LEAVITT [facility] Hemogramon 01-09-2020 Erythrocyte distribution width (RBC) [Ratio] 14.3 % Normal 11.7-14.4 [facility] Comment on above: Performed By: #### P BNP #### [address] [address] Hematocrit (Bld) [Volume fraction] 42.3 % Normal 34.1-44.9 [facility] Comment on above: Performed By: #### P BNP #### [address] [address] Hemoglobin (Bld) [Mass/Vol] 13.9 g/dL Normal 11.2-15.7 [facility] Comment on above: Performed By: #### P BNP #### [address] [address] MCH (RBC) [Entitic mass] 30.3 pg Normal 25.6-32.2 [facility] Comment on above: Performed By: #### P BNP #### [address] [address] MCHC (RBC) [Mass/Vol] 32.9 % Normal 31.6-34.8 [facility] Comment on above: Performed By: #### P BNP #### [facility] [address] [place] [address] MCV (RBC) [Entitic vol] 92.4 fL Normal 79.4-94.8 [facility] Comment on above: Performed By: #### P BNP #### [facility] [address] [place] [address] Platelet mean volume (Bld) [Entitic vol] 11.8 fL Normal 9.4-12.3 [facility] Comment on above: Performed By: #### P BNP #### [facility] [address] [place] [address] Platelets (Bld) [#/Vol] 182 thou/cmm Normal 182-369 [facility] Comment on above: Performed By: #### P BNP #### [facility] [address] [place] [address] RBC (Bld) [#/Vol] 4.58 mil/cmm Normal 3.93-5.22 [facility] Comment on above: Performed By: #### P BNP #### [facility] [address] [place] [address] RDW SD 47.2 fl High 36.4-46.3 [facility] Comment on above: Performed By: #### P BNP #### [facility] [address] [place] [address] WBC (Bld) [#/Vol] 30.65 thou/cmm Critically high 3.98-10.0 4 [facility] Comment on above: Result Comment: Repe ated AND verified Performed By: #### P BNP #### [facility] [address] [place] [address] Hemogram/Diffon 01-09-2020 Abs Immature Grans 0.10 thou/cmm High 0.00-0.05 [facility] Comment on above: Performed By: #### L IPD2 #### [facility] [address] [place] [address] Abs Neut (ANC) 7.13 thou/cmm High 1.56-6.13 [facility] Comment on above: Performed By: #### L IPD2 #### [facility] [address] [place], [place] [address] Abs. Baso 0.06 thou/cmm Normal 0.01-0.08 [facility] Comment on above: Performed By: #### L IPD2 #### [facility] [address] [place], [place] [address] Abs. Green 1.08 thou/cmm High 0.27-0.70 [facility] Comment on above: Performed By: #### L IPD2 #### [facility] [address] [place], [place] [address] Basophils/100 WBC (Bld) 0.5 % Normal [facility] Comment on above: Performed By: #### L IPD2 #### [facility] [address] [place], [place] [address] Eosinophils (Bld) [#/Vol] 0.06 thou/cmm Normal 0.00-0.31 [facility] Comment on above: Performed By: #### L IPD2 #### [facility] [address] [place], [place] [address] Eosinophils/100 WBC (Bld) 0.5 % Normal [facility] Comment on above: Performed By: #### L IPD2 #### [facility] [address] [place], [place] [address] Immature Grans 0.80 % Normal [facility] Comment on above: Performed By: #### L IPD2 #### [facility] [address] [place], [place] [address] Lymphocytes (Bld) [#/Vol] 3.80 thou/cmm High 1.18-3.74 [facility] Comment on above: Performed By: #### L IPD2 #### [facility] [address] [place], [place] [address] Lymphocytes/100 WBC (Bld) 31.1 % Normal [facility] Comment on above: Performed By: #### L IPD2 #### [facility] [address] [place], [place] [address] Monocytes/100 WBC (Bld) 8.8 % Normal [facility] Comment on above: Performed By: #### L IPD2 #### [facility] [address] [place] [address] Seg Neutrophil 58.3 % Normal [facility] Comment on above: Performed By: #### L IPD2 #### [facility] [address] [place] [address] Erythrocyte distribution width (RBC) [Ratio] 14.3 % Normal 11.7-14.4 [facility] Comment on above: Performed By: #### L IPD2 #### [facility] [address] [place] [address] Hematocrit (Bld) [Volume fraction] 31.4 % Low 34.1-44.9 [facility] Comment on above: Performed By: #### L IPD2 #### [facility] [address] [place] [address] Hemoglobin (Bld) [Mass/Vol] 10.4 g/dL Low 11.2-15.7 [facility] Comment on above: Performed By: #### L IPD2 #### [facility] [address] [place] [address] MCH (RBC) [Entitic mass] 30.7 pg Normal 25.6-32.2 [facility] Comment on above: Performed By: #### L IPD2 #### [facility] [address] [place] [address] MCHC (RBC) [Mass/Vol] 33.1 % Normal 31.6-34.8 [facility] Comment on above: Performed By: #### L IPD2 #### [facility] [address] [place] [address] MCV (RBC) [Entitic vol] 92.6 fL Normal 79.4-94.8 [facility] Comment on above: Performed By: #### L IPD2 #### [facility] [address] [place] [address] Platelet mean volume (Bld) [Entitic vol] 11.4 fL Normal 9.4-12.3 [facility] Comment on above: Performed By: #### L IPD2 #### [facility] [address] [place] [address] Platelets (Bld) [#/Vol] 291 thou/cmm Normal 182-369 [facility] Comment on above: Performed By: #### L IPD2 #### [facility] [address] [place] [address] RBC (Bld) [#/Vol] 3.39 mil/cmm Low 3.93-5.22 [facility] Comment on above: Performed By: #### L IPD2 #### [place] [address] RDW SD 47.2 fl High 36.4-46.3 [facility] Comment on above: Performed By: #### L IPD2 #### [facility] [address] [place] [address] WBC (Bld) [#/Vol] 12.23 thou/cmm High 3.98-10.04 [facility] Comment on above: Performed By: #### L IPD2 #### [place] [address] Magnesium Bloodon 01-09-2020 Magnesium [Mass/Vol] 2.6 mg/dL Normal 1.6-2.6 [facility] Comment on above: Performed By: #### P BNP #### [place] [address] NURSING PROGon 01-09-2020 NURSING PROG HNO ID: [id number] Author: Lacey (Rn) RITA Morton Service: Nursing Author Type: Registered Nurse Type: Nursing Progress Note Filed: 01/09/2020 6:37 PM Note Text: Nursing Progress Note Patient Name: Cici Woodward Patient Location: [id number]/[facility]-32 33- Daily Note: Pt complaining of extreme pain in right leg, foot light purple in color, unable to doppler pulse. Isabella wrap taken down, foot pinked back up and able to doppler pulse again. Dr Rivera notified, OK to leave isabella wrap off and apply petar hose. This note was completed by: Lacey Morton RN Normal [facility] O2% Measured Venouson 2019 O2% Measured Venous 67.3 % High 18.2-66.4 [facility] Comment on above: Performed By: #### P BNP #### [facility] [address] [place] [address] OPERATIVE NOon 01-09-2020 OPERATIVE NO HNO ID: [id number] Author: Yanet Rivera Service: Thoracic Surgery Author Type: Physician Type: Operative Report Filed: 01/11/2020 12:38 PM Note Text: [facility] - Operative Report CICI WOODWARD I : 1935 AGE: 84. SEX: F PATIENT TYPE: I HOSP SVC: INT LOCATION: [facility] ATTENDING PHYSICIAN: YANET RIVERA CSN NUMBER: [id number] DATE OF SURGERY/PROCEDURE: 01/09/2020 INCISION/PROCEDURE START TIME: 8:17 AM INCISION CLOSE/PROCEDURE END TIME: 1:46 PM PREOPERATIVE DIAGNOSIS: Severe 3-vessel coronary artery disease with dku-DY-gwcebmp elevation myocardial infarction with ischemic cardiomyopathy with [...] than 1.5 mm. SURGEON: Yanet Rivera MD INSIDE BARREL LATHE OPERATOR: The vein harvest performed by RANDY Grant. Email Campaign Specialist was by Karen Baker SA. SURGERY/PROCEDURE: Coronary artery bypass grafting x4 with a pedicled left internal mammary artery graft cpds-yu-pfho to the diagonal and end-to-side to the anterior descending in sequential fashion, saphenous vein graft sios-cn-qvxh to the small obtuse marginal branch of the circumflex and end-to-side to the sizable posterior lateral branch of the right coronary artery. Endoscopic vein harvesting, right lower extremity, right thigh and right leg for use as conduit. ANESTHESIA: General endotracheal. INDICATIONS AND FINDINGS: Indications: Patient was accepted in transfer from [place] by Dr. Rosenberg. I was ultimately asked to assume cardiac surgery care for the patient. She did have to remain off her chronic Plavix and Brilinta loading from [place] for at least 5 days prior to [...] appropriate monitors, lines, and tubes including the [place]-Veto and intraoperative MAYELA, her neck, chest, abdomen, groins, thighs, legs, and feet were prepped and draped in surgical fashion. Preoperative ultrasound examination per the PA had the vein looking better on the [...] vein we had just utilized. A crossing relk-gw-sltm anastomosis was constructed with 7-0 Prolene. Filling was limited in the small branch as expected. Good filling persisted in the posterior lateral branch of the right coronary. Next, the left internal mammary was passed through a rent in the pericardium lateral to the thymic fat pad. I had cleared the pedicle at the site chosen for the psfp-sv-trqn anastomosis to the diagonal. Arteriotomy was made in the diagonal. Arteriotomy was made in the midpoint of the GHOSH, and it was sutured to the diagonal with running 7-0 Prolene. Bulldog clamp was removed. Good filling was seen distally in the diagonal. There was good flow out the end of the lummi GHOSH as well. Bulldog clamp was replaced. [...] was placed. Left pleural space drained with 32-Wolof chest tube. Mediastinum drained with a 32 PleuraFlow special mediastinal catheter. These were connected to water-seal suction drainage device. The small endoscopic vein harvest incision in the right lower extremity was closed as appropriate with absorbable suture. Dermabond was placed. Patient was then transported directly to the cardiac surgery intensive care unit after correct sponge, needle, and instrument count. Yanet Rivera MD PS:[id number] /[id number] Normal [facility] PROGRESSon 01-09-2020 PROGRESS HNO ID: [id number] Author: Cesar Burroughs Service: Nephrology Author Type: [...] follow Do not anticipate any need for PRINTS AND DRAWINGS CURATOR Avoid all ISABELLA-I , for 72 h until cr is stable and off pressors We will follow Normal [facility] PROGRESS HNO ID: [id number] Author: Yanet Rivera Service: Thoracic Surgery Author Type: Physician Type: Progress Notes Filed: 01/09/2020 1:48 PM Note Text: CARDIOTHORACIC BRIEF OP NOTE LOG ID: [id number] SURGERY/PROCEDURE DATE: 01/09/2020 INCISION/PROCEDURE START TIME: 8:17 AM INCISION CLOSE/PROCEDURE END TIME: SURGEON(S) AND INSIDE BARREL LATHE OPERATOR(S): Surgeon(s) and Role: * Yanet Rivera - Primary Physician Arts Manager: Darwin Rojo (Pa) Joint Cleaning Machine Operator: Juana Mcdonald) SA Olivia Joint Cleaning Machine Operator (Relief): Tami Mcdonald) SA Grecia PROCEDURES AND ANESTHESIA: CABG X 4 pedicled [...] Same. SIGNATURE: Yanet Rivera MD PATIENT NAME: Cici Woodward DATE: January 09, 2020 TIME: 1:40 PM PAGER/CONTACT #: [phone] Normal [facility] Protimeon 01-09-2020 INR Coag (PPP) [Relative time] 1.09 {INR} Normal 0.90-1.30 [facility] Comment on above: Result Comment: Camille min K Antagonist (VKA) Therapeutic Range: INR 2 to 3 (Target INR of 2.5) Note: For patients treated with VKA drugs, such as warfarin, the [place] [employer] 2012 Guideline recommends [...] Chest 2012; 141:7S-47S Tomi RA, et al. [facility] 2017; 70: 252-289 Performed By: #### P BNP #### [facility] [address] [place] [address] PT Coag (PPP) [Time] 11.7 s Normal 9.7-13.0 [facility] Comment on above: Performed By: #### P BNP #### [facility] [address] [place] [address] RBC Productson 01-09-2020 Xmatch Unit 1 see below Normal [facility] Comment on above: Result Comment: Comp atible Performed By: #### L IPD2 #### [facility] [address] [place] [address] Xmatch Unit 2 see below Normal [facility] Comment on above: Result Comment: Comp atible Performed By: #### L IPD2 #### [facility] [address] [place] [address] XR CHEST 1V FRONTALon 2019 XR CHEST [...] stomach. There is a right internal jugular [place]-Veto catheter terminating in profile with the pulmonary [...] available at time of dictation as requested.. Document Scanner: KURT Transcribe Date/Time: Jan 09 2020 2:54P Dictated by : REESE BATES MD This examination was interpreted and the report reviewed and electronically signed by: REESE BATES MD on Jan 09 2020 2:59PM EST Normal [facility] Activated PTTon 01-08-2020 aPTT Coag (Bld) [Time] 54.0 s High 23.0-32.4 [facility] Comment on [...] laboratory APTT reagent in use throughout the [facility]. Performed By: #### L IPD2 #### [place] [address] Basic Panelon 01-08-2020 Creatinine [Mass/Vol] 1.44 mg/dL High 0.51-0.95 [facility] Comment on above: Result Comment: Use of this assay is not recommended for patients undergoing treatment with phenindione, due to the potential for falsely depressed results. Performed By: #### L IPD2 #### [facility] [address] [place] [address] Anion gap [Moles/Vol] 10 mmol/L Normal 8-16 [facility] Comment on above: Performed By: #### L IPD2 #### [address] [address] CO2 [Moles/Vol] 22 mmol/L Normal 21-32 [facility] Comment on above: Performed By: #### L IPD2 #### [facility] [address] [place], [place] [address] Urea nitrogen [Mass/Vol] 35 mg/dL High 7-18 [facility] Comment on above: Performed By: #### L IPD2 #### [facility] [address] [place], [place] [address] Calcium [Mass/Vol] 8.8 mg/dL Normal 8.5-10.1 [facility] Comment on above: Performed By: #### L IPD2 #### [facility] [address] [place], [place] [address] Glucose [Mass/Vol] 134 mg/dL High 70-99 [facility] Comment on above: Performed By: #### L IPD2 #### [facility] [address] [place], [place] [address] Chloride [Moles/Vol] 113 mmol/L High 98-107 [facility] Comment on above: Performed By: #### L IPD2 #### [facility] [address] [place], [place] [address] Potassium [Moles/Vol] 3.7 mmol/L Normal 3.5-5.1 [facility] Comment on above: Performed By: #### L IPD2 #### [facility] [address] [place], [place] [address] Sodium [Moles/Vol] 141 mmol/L Normal 136-145 [facility] Comment on above: Performed By: #### L IPD2 #### [facility] [address] [place], [place] [address] CONSULT PROGon 01-08-2020 CONSULT PROG HNO ID: [id number] Author: Ann Echeverria Service: Endocrinology Author Type: [...] 30 years ago. ?H/o CAD and remote ND now admitted with NSTEMI who is found [...] 01/09/2020 SIGNATURE: Ann Echeverria MD PATIENT NAME: Cici Woodward DATE: January 08, 2020 TIME: 2:35 PM PAGER: [phone] Normal [facility] Hemogram/Diffon 01-08-2020 Abs Immature Grans 0.09 thou/cmm High 0.00-0.05 [facility] Comment on above: Performed By: #### T ROP #### [place] [address] Abs Neut (ANC) 4.20 thou/cmm Normal 1.56-6.13 [facility] Comment on above: Performed By: #### T ROP #### [place] [address] Abs. Baso 0.05 thou/cmm Normal 0.01-0.08 [facility] Comment on above: Performed By: #### T ROP #### [place] [address] Abs. Green 0.85 thou/cmm High 0.27-0.70 [facility] Comment on above: Performed By: #### T ROP #### [place] [address] Basophils/100 WBC (Bld) 0.5 % Normal [facility] Comment on above: Performed By: #### T ROP #### [place] [address] Eosinophils (Bld) [#/Vol] 0.11 thou/cmm Normal 0.00-0.31 [facility] Comment on above: Performed By: #### T ROP #### [facility] [address] [place], [place] [address] Eosinophils/100 WBC (Bld) 1.2 % Normal [facility] Comment on above: Performed By: #### T ROP #### [facility] [address] [place], [place] [address] Immature Grans 1.00 % Normal [facility] Comment on above: Performed By: #### T ROP #### [facility] [address] [place], [place] [address] Lymphocytes (Bld) [#/Vol] 4.16 thou/cmm High 1.18-3.74 [facility] Comment on above: Performed By: #### T ROP #### [facility] [address] [place], [place] [address] Lymphocytes/100 WBC (Bld) 43.9 % Normal [facility] Comment on above: Performed By: #### T ROP #### [facility] [address] [place], [place] [address] Monocytes/100 WBC (Bld) 9.0 % Normal [facility] Comment on above: Performed By: #### T ROP #### [facility] [address] [place], [place] [address] Seg Neutrophil 44.4 % Normal [facility] Comment on above: Performed By: #### T ROP #### [address] [address] Erythrocyte distribution width (RBC) [Ratio] 14.1 % Normal 11.7-14.4 [facility] Comment on above: Performed By: #### T ROP #### [facility] [address] [place], [place] [address] Hematocrit (Bld) [Volume fraction] 32.4 % Low 34.1-44.9 [facility] Comment on above: Performed By: #### T ROP #### [facility] [address] [place], [place] [address] Hemoglobin (Bld) [Mass/Vol] 10.6 g/dL Low 11.2-15.7 [facility] Comment on above: Performed By: #### T ROP #### [facility] [address] [place] [address] MCH (RBC) [Entitic mass] 30.7 pg Normal 25.6-32.2 [facility] Comment on above: Performed By: #### T ROP #### [facility] [address] [place] [address] MCHC (RBC) [Mass/Vol] 32.7 % Normal 31.6-34.8 [facility] [facility] Comment on above: Performed By: #### T ROP #### [facility] [address] [place] [address] MCV (RBC) [Entitic vol] 93.9 fL Normal 79.4-94.8 [facility] Comment on above: Performed By: #### T ROP #### [facility] [address] [place] [address] Platelet mean volume (Bld) [Entitic vol] 11.3 fL Normal 9.4-12.3 [facility] Comment on above: Performed By: #### T ROP #### [facility] [address] [address] Platelets (Bld) [#/Vol] 298 thou/cmm Normal 182-369 [facility] Comment on above: Performed By: #### T ROP #### [place] [address] RBC (Bld) [#/Vol] 3.45 mil/cmm Low 3.93-5.22 [facility] Comment on above: Performed By: #### T ROP #### [facility] [address] [place] [address] RDW SD 47.0 fl High 36.4-46.3 [facility] Comment on above: Performed By: #### T ROP #### [facility] [address] [address] WBC (Bld) [#/Vol] 9.47 thou/cmm Normal 3.98-10.04 [facility] Comment on above: Performed By: #### T ROP #### [place] [address] [facility] PLAN OF CARE HNO ID: [id number] Author: Massimo Evans (Pharmacist) Service: Pharmacy Author [...] well, and Pharmacy records: Fill hx at [facility] (patient gets insulins filled at [facility] due to convenience they will mail these to her). Medication Nonadherence Identified: No barriers noted The above information represents the best possible medication history: Yes Reconciliation completed? Yes All FOOD SPECIALIST medications addressed by LIP Plavix held on admission in anticipation of surgery. Amoxicillin stopped due to not appropriate therapy (see short term meds below). Insulins were held due to adjusting doses inpatient- currently ordered alternate doses. Discussed addition of eye ointment qhs with DAYANA Reza and alisson verbal order. [id number] Medication List Adjustments: Medications Added: Systane eye [...] - Ultram [Tramadol Hc* Vomiting Preferred Pharmacy: [facility] Current FOOD SPECIALIST Medications: Prior to Admission medications as of [...] Drop in both eyes twice daily. Yes [place]-3 Fatty Acids 1,250 mg cap Take 1 capsule by mouth once daily. Yes calcium carbonate 600 mg-cholecalciferol 400 units (CALCIUM 600 + D) 600 mg(1,500mg) -400 unit tab Take 1 tablet by mouth once daily. Yes blood sugar diagnostic(ASCENSIA CONTOUR TEST STRIPS) Test Blood sugar once daily 250.00, non insulin dep EXT [id number] MASSIMO EVANS, PHARMACIST January 08, 2020 3:41 PM Normal [facility] PROGRESSon 01-08-2020 PROGRESS HNO ID: [id number] Author: Jaylan Bedolla Service: Hospital Medicine Author Type: Physician Type: Progress Notes Filed: 01/08/2020 3:56 PM Note Text: DEPARTMENT OF HOSPITAL MEDICINE PROGRESS NOTE SERVICE DATE: 01/08/2020 SERVICE TIME: 3:56 PM Hospital Medicine/Primary Attending:Jaylan bedolla MD NIGHT AND WEEKEND COVERAGE: From 7am - 7pm, please call [phone] After 7pm, please call cross cover pager #[phone] Subjective INTERVAL HPI: Reports that she is [...] mL irrigation 3,000 Units IRRIGATION ONE TIME 01/08/2044 -- 01/03/20 1800 aspirin 81 mg chewable tab(s) (Order Panel) 81 mg ORAL DAILY 01/03/20 175 -- 01/03/20 1800 heparin iv infusion (LOW DOSE ACS/NOMOGRAM) 25,000 units in NaCl 0.45% 250 mL PREMIX (Heparin Infusion + Rate Change Bolus) 0-30 mL/hr 0-3,000 Units/hr INTRAVENOUS CONTINUOUS 01/03/20175801/09/20 0600 01/03/20 1800 vte non-pharmacologic prophylaxis - none indicated (ga,oh) 01/03/20 1800 vte current anticoag therapy (ga,ny) 01/03/20 1800 activity - mobilize patient ([place]) VTE Prophylaxis: VTE prophylaxis appropriate Disposition: Home Plan of care discussed with: Patient SIGNATURE: Chandan Tavarez MD PATIENT NAME: Cici Woodward DATE: January 08, 2020 TIME: 3:31 PM PAGER/CONTACT #: [phone] [facility] PROGRESS HNO ID: [id number] Author: Gatito Godinez Service: Nephrology Author Type: [...] toxins She is aware of risks of PRINTS AND DRAWINGS CURATOR and agreeable to procced Avoid all renal toxins Avoid BP shifts K better today Trend the cr Avoid all renal toxins We will follow closely ? Paxton Godinez MD [facility] PROGRESS HNO ID: [id number] Author: Yanet Rivera Service: Thoracic Surgery Author Type: Physician Type: Progress Notes Filed: 01/08/2020 9:48 AM Note Text: Patient seen this AM. Has no c/o, questions answered, and she wishes to proceed with increased risk cabg in AM. P-OR Sun 0800. [facility] ALLIED HEALTHon 01-07-2020 ALLIED HEALTH HNO ID: [id number] Author: Isidro (Student) Tor Duenas Service: Spiritual Care Author Type: Student Type: Allied Health Filed: 01/07/2020 10:54 AM Note Text: SPIRITUALCARE Spiritual Care Visit- Brief Note Name: Cici Woodward Date: January 07, 2020 Notes: Patient requested printed circuit boards inspector visit for prayer prior to surgery this Sunday. Prayed with patient. Patient appreciative. Restorative Aide Signature: Isidro Duenas To contact the Spiritual Care Department: Please call [phone] or Page the On-Call Restorative Aide at pager [phone] Thank you for the opportunity to be of service. This is an electronically created document. IF PRINTED, PLEASE DO NOT REMOVE FROM THE CHART OR MODIFY PRINTED COPY. [facility] Activated PTTon 01-07-2020 aPTT Coag (Bld) [Time] 58.6 s High 23.0-32.4 [facility] Comment on [...] laboratory APTT reagent in use throughout the [facility]. Performed By: #### T ROP #### [place] [address] Basic Panelon 01-07-2020 Creatinine [Mass/Vol] 1.46 mg/dL High 0.51-0.95 [facility] Comment on above: Result Comment: Use of this assay is not recommended for patients undergoing treatment with phenindione, due to the potential for falsely depressed results. Performed By: #### T ROP #### [place] [address] Urea nitrogen [Mass/Vol] 41 mg/dL High 7-18 [facility] Comment on above: Performed By: #### T ROP #### [place] [address] Anion gap [Moles/Vol] 8 mmol/L Normal 8-16 [facility] Comment on above: Performed By: #### T ROP #### [place] [address] CO2 [Moles/Vol] 22 mmol/L Normal 21-32 [facility] Comment on above: Performed By: #### T ROP #### [place] [address] Calcium [Mass/Vol] 8.6 mg/dL Normal 8.5-10.1 [facility] Comment on above: Performed By: #### T ROP #### [place] [address] Glucose [Mass/Vol] 126 mg/dL High 70-99 [facility] Comment on above: Performed By: #### T ROP #### [place] [address] Chloride [Moles/Vol] 114 mmol/L High 98-107 [facility] Comment on above: Performed By: #### T ROP #### [facility] [address] [place], [place] [address] Potassium [Moles/Vol] 3.4 mmol/L Low 3.5-5.1 [facility] Comment on above: Performed By: #### T ROP #### [facility] [address] [place], [place] [address] Sodium [Moles/Vol] 141 mmol/L Normal 136-145 [facility] Comment on above: Performed By: #### T ROP #### [facility] [address] [place], [place] [address] CASE MANAGEMon 01-07-2020 CASE MANAGEM HNO ID: [id number] Author: Patience BlairRn) RITA Christy Service: Care Management Author Type: Registered Nurse Type: Care Mgt Progress Note Filed: 01/07/2020 11:25 AM Note Text: CARE MANAGEMENT PROGRESS NOTE SERVICE DATE: 01/07/2020 SERVICE TIME: 11:24 AM LOS: 4 days Spoke with pt at the bedside. Plan CABG on Sunday. Pt states that she would like [facility] and [facility] if rehab is appropriate post op. Pt refused lists. Will follow clinical progress. SIGNATURE: Patience Christy RN PATIENT NAME: Cici Woodward DATE: January 07, 2020 TIME: 11:23 AM PAGER/CONTACT #: [phone] [facility] CONSULT PROGon 01-07-2020 CONSULT PROG HNO ID: [id number] Author: Ann Echeverria Service: Endocrinology Author Type: [...] 30 years ago. ?H/o CAD and remote ND now admitted with NSTEMI who is found [...] 01/09/2020 SIGNATURE: Ann Echeverria MD PATIENT NAME: Cici Woodward DATE: January 07, 2020 TIME: 2:35 PM PAGER: [phone] Normal [facility] Hemogram/Diffon 01-07-2020 Abs Immature Grans 0.07 thou/cmm High 0.00-0.05 [facility] Comment on above: Performed By: #### T ROP #### [place] [address] Abs Neut (ANC) 4.35 thou/cmm Normal 1.56-6.13 [facility] Comment on above: Performed By: #### T ROP #### [place] [address] Abs. Baso 0.06 thou/cmm Normal 0.01-0.08 [facility] Comment on above: Performed By: #### T ROP #### [place] [address] Abs. Green 0.85 thou/cmm High 0.27-0.70 [facility] Comment on above: Performed By: #### T ROP #### [place] [address] Basophils/100 WBC (Bld) 0.6 % Normal [facility] Comment on above: Performed By: #### T ROP #### [facility] [address] [place], [place] [address] Eosinophils (Bld) [#/Vol] 0.12 thou/cmm Normal 0.00-0.31 [facility] Comment on above: Performed By: #### T ROP #### [facility] [address] [place], [place] [address] Eosinophils/100 WBC (Bld) 1.2 % Normal [facility] Comment on above: Performed By: #### T ROP #### [facility] [address] [place], [place] [address] Immature Grans 0.70 % Normal [facility] Comment on above: Performed By: #### T ROP #### [facility] [address] [place], [place] [address] Lymphocytes (Bld) [#/Vol] 4.26 thou/cmm High 1.18-3.74 [facility] Comment on above: Performed By: #### T ROP #### [facility] [address] [place], [place] [address] Lymphocytes/100 WBC (Bld) 43.9 % Normal [facility] Comment on above: Performed By: #### T ROP #### [facility] [address] [place], [place] [address] Monocytes/100 WBC (Bld) 8.8 % Normal [facility] Comment on above: Performed By: #### T ROP #### [facility] [address] [place], [place] [address] Seg Neutrophil 44.8 % Normal [facility] Comment on above: Performed By: #### T ROP #### [facility] [address] [place], [place] [address] Erythrocyte distribution width (RBC) [Ratio] 13.7 % Normal 11.7-14.4 [facility] Comment on above: Performed By: #### T ROP #### [facility] [address] [place], [place] [address] Hematocrit (Bld) [Volume fraction] 33.1 % Low 34.1-44.9 [facility] Comment on above: Performed By: #### T ROP #### [facility] [address] [place] [address] Hemoglobin (Bld) [Mass/Vol] 10.5 g/dL Low 11.2-15.7 [facility] Comment on above: Performed By: #### T ROP #### [facility] [address] [place] [address] MCH (RBC) [Entitic mass] 29.7 pg Normal 25.6-32.2 [facility] Comment on above: Performed By: #### T ROP #### [facility] [address] [place] [address] MCHC (RBC) [Mass/Vol] 31.7 % Normal 31.6-34.8 [facility] Comment on above: Performed By: #### T ROP #### [place] [address] MCV (RBC) [Entitic vol] 93.5 fL Normal 79.4-94.8 [facility] Comment on above: Performed By: #### T ROP #### [facility] [address] [place] [address] Platelet mean volume (Bld) [Entitic vol] 11.3 fL Normal 9.4-12.3 [facility] Comment on above: Performed By: #### T ROP #### [place] [address] Platelets (Bld) [#/Vol] 307 thou/cmm Normal 182-369 [facility] Comment on above: Performed By: #### T ROP #### [facility] [address] [place] [address] RBC (Bld) [#/Vol] 3.54 mil/cmm Low 3.93-5.22 [facility] Comment on above: Performed By: #### T ROP #### [place] [address] RDW SD 46.5 fl High 36.4-46.3 [facility] Comment on above: Performed By: #### T ROP #### [facility] [address] [place] [id number] WBC (Bld) [#/Vol] 9.70 thou/cmm Normal 3.98-10.04 [facility] Comment on above: Performed By: #### T CRUZ #### [facility] [address] [place] [id number] NUTRITIONon 01-07-2020 NUTRITION HNO ID: [id number] Author: Kinjal Velarde Service: Nutrition Therapy Author Type: Registered Dietitian Type: Nutrition Filed: 01/07/2020 2:04 PM Note Text: NUTRITION THERAPY INITIAL ASSESSMENT SERVICE DATE: 01/07/2020 SERVICE TIME: 8:36 AM Nutrition Assessment: Recommended Malnutrition Diagnosis: No Malnutrition Identified Nutrition Diagnosis: Problem: Increased nutrient needs Related to: (Increased demand ) As evidenced by: Procedure/surgery;Medic al condition Estimated kilocalorie needs: 9796-4619 Calorie Calculation Method: 25-30 kcals/kg Estimated protein needs (grams): 52-78 Grams protein determined by: 1.0-1.5 g/kg Care Plan: Continue current diet Supplements: Impact AR Monitor and Evaluation: Meet greater than 75% of estimated needs;Monitor labs, I/Os, vital signs, weight;Monitor fluid/electrolyte balance Discharge Recommendations: Diet;Oral Supplements Diet: Heart healthy Oral Supplements: Impact AR at least 5 days post-op. ------ Reason for Assessment: ERAS HPI: 84 year old female?PMH T2DM, CAD [...] SIGNATURE: Kinjal Velarde RD, LD PATIENT NAME: Cici Woodward DATE: January 07, 2020 TIME: 8:36 AM PAGER: [phone] [facility] PLAN OF CAREon 01-07-2020 PLAN OF CARE HNO ID: [id number] Author: Melisa Reza CNP Service: Cardiovascular Surgery [...] with more than 50% of the total mzmn-so-ltde time of the visit in counseling / coordination of care. Melisa Reza APRN.COLLAR SEPARATOR Normal [facility] PROGRESSon 01-07-2020 PROGRESS HNO ID: [id number] Author: Cesar Burroughs Service: Nephrology Author Type: [...] data in the 24 hours ending 01/07/20 183 . HEAD, EYES, ENT: No pallor. No [...] Recent Labs 01/07/20 0615 CO2 22 Specific [place], Ur Date Value Ref Range Status 12/25/2019 [...] Sunday She is aware of risks of PRINTS AND DRAWINGS CURATOR and agreeable to procced Avoid all renal toxins Avoid BP shifts repalce K Trend the cr Avoid all renal toxins We will follow closely Normal [facility] PROGRESS HNO ID: [id number] Author: Jaylan Bedolla Service: Hospital Medicine Author Type: Physician Type: Progress Notes Filed: 01/07/2020 3:33 PM Note Text: DEPARTMENT OF HOSPITAL MEDICINE PROGRESS NOTE SERVICE DATE: 01/07/2020 SERVICE TIME: 3:30 PM Hospital Medicine/Primary Attending:Jaylan bedolla MD NIGHT AND WEEKEND COVERAGE: From 7am - 7pm, please call [phone] After 7pm, please call cross cover pager #[phone] Subjective INTERVAL HPI: Reports that she is [...] 0-30 mL/hr 0-3,000 Units/hr INTRAVENOUS CONTINUOUS 01/03/20 17501/09/20 0600 01/03/20 1800 vte non-pharmacologic prophylaxis - none indicated (ga,ny) 01/03/20 1800 vte current anticoag therapy (ga,ny) 01/03/20 1800 activity - mobilize patient ([place], [place]) VTE Prophylaxis: VTE prophylaxis appropriate Disposition: Home Plan of care discussed with: Patient SIGNATURE: Chandan Tavarez MD PATIENT NAME: Cici Woodward DATE: January 07, 2020 TIME: 3:31 PM PAGER/CONTACT #: [phone] [facility] PROGRESS HNO ID: [id number] Author: Yanet Rivera Service: Thoracic Surgery Author Type: Physician Type: Progress Notes Filed: 01/07/2020 10:37 AM Note Text: Patient seen again this AM and evaluated/examined. Findings of preop W/U and eval so far all reviewed with her. [place] echo reviewed with cardiology here as well with MR 1-2+ but not moderate. Patient also d/w Laamritrra originally accepting surgeon as well. The substantially [...] to proceed Sunday as tentatively scheduled. Normal [facility] RBC Productson 01-07-2020 Xmatch Unit 1 see below [facility] Comment on above: Result Comment: Comp atible Performed By: #### T ROP #### [place] [address] Xmatch Unit 2 see below [facility] Comment on above: Result Comment: Comp atible Performed By: #### T ROP #### [place] [address] Type and Screenon 01-07-2020 ABO group Nom (Bld) O [facility] Comment on above: Performed By: #### T ROP #### [place] [address] Comment See Below [facility] Comment on above: Result Comment: Scre en &/or Xmatch expires in 3 days at 12 midnight. Redraw patient at that time. Performed By: #### T ROP #### [place] [address] RH Type Positive [facility] Comment on above: Performed By: #### T ROP #### [facility] [address] [place], [place] [address] Activated PTTon 01-06-2020 aPTT Coag (Bld) [Time] 56.7 s High 23.0-32.4 [facility] Comment on [...] laboratory APTT reagent in use throughout the [facility]. Performed By: #### T ROP #### [address] [address] CONSULT PROGon 01-06-2020 CONSULT PROG HNO ID: [id number] Author: Ann Echeverria Service: Endocrinology Author Type: [...] 30 years ago. ?H/o CAD and remote ND now admitted with NSTEMI who is found [...] 01/09/2020 SIGNATURE: Ann Echeverria MD PATIENT NAME: Cici Woodward DATE: January 06, 2020 TIME: 1:54 PM PAGER: [phone] Normal [facility] CONSULT PROG HNO ID: [id number] Author: Mleisa Harkins) DAYANA Reza Service: Cardiovascular Surgery Author Type: Nurse Practitioner Type: Consult Progress Note Filed: 01/08/2020 10:58 AM Note Text: CTVS Surgery Pre-Op Open Heart Check List Patient Info: Cici Woodward 1935 84 year old Bactrim [Sulfamethoxazole-Trime thoprim]; Codeine; Prednisone; Statins [Rpdxrpp-Yqp-Ncz Reductase Inhibitors]; Ultram [Tramadol Hcl] HPI: This is a 84 years old woman who was transferred from [facility] after presenting with resting chest pain [...] later time), STEMI protocol was activated in [place] and patient was given Hep Gtt and Brilinta prior undergoing HC. HC revealed severe MV CAD. Echo performed in [place] on showed: Normal LV size with moderate segmental systolic dysfunction, EF 30%. 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 There is also a 2+MR (no valvular mechanism mentioned) noted without other valvular lesions mentioned. She was recommended to be transferred to [facility] for CABG evaluation. 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 She also has an intracranial meningioma s/p gamma knife (this was dx in 10/2008 via MRI to evaluate DZ. GKRS was 08/14/2013), and [facility] brain scan now tapered down to every 4 years as the size of the meningioma has been reducing. She is a lifelong nonsmoker without no known COPD, no CHF or cardiac arrhythmia and known to patient. She denies recurrence ND since 32 yo ago and has not [...] cancers. FH:+CAD in both parents, both from [place] in 70-80s. SH: lifelong non smoker, no [...] 8% CARE TEAM: Cardiac Surgeon: Dr. Rivera Hose Sprayer: Dr. Noel PCP: Dr. Negro Other Providers: na Pre-Op Testing: LABS: CHEMISTRY Troponin I (ng/ml) [...] with VKA drugs, such as warfarin, the [place] [employer] 2012 Guideline recommends [...] Chest 2012; 141:7S-47S Tomi MCLEAN et al. [facility] 2017; 70: 252-289 Anemia Evaluation: Anemic: No Accept Blood: Yes Blood Conservation Committee: No Ferritin: 205.9 FE+TIBC: 78, 292 Fe Sat: 27% FOBT: NA Anemia Treatment: NA UA pH, Urine Date Value Ref Range Status 12/25/2019 6.0 4.5 - 8.0 Final Specific [place], Ur Date Value Ref Range Status 12/25/2019 [...] Akinetic. Mid?inferior: Akinetic. Mid?inferior septal: Akinetic. Anterior [place]: Hypokinetic. Inferior [place]: Dyskinetic. Lateral [place]: Hypokinetic. Septal apex: Dyskinetic. Right ventricle: Normal [...] Yes Vascular surgery No Other No Melisa eRza APRN.DAYANA Normal [facility] CONSULT PROG HNO ID: [id number] Author: Melisa Harkins) DAYANA Reza Service: Cardiovascular Surgery Author Type: Nurse Practitioner Type: Consult Progress Note Filed: 01/06/2020 1:31 PM Note Text: CARDIOTHORACIC SURGERY POSTOP PROGRESS NOTE SERVICE DATE: 01/06/2020 SERVICE TIME: 12:23 PM Subjective S/P SURGERY: Procedure(s) (LRB): DATE OF SURGERY: 01/09/2020 LOS: 3 HPI: This is a 84 years old woman who was transferred from [facility] after presenting with resting chest pain [...] later time), STEMI protocol was activated in [place] and patient was given Hep Gtt and Brilinta prior undergoing HC. HC revealed severe MV CAD. Echo performed in [place] on showed: Normal LV size with moderate segmental systolic dysfunction, EF 30%. 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 There is also a 2+MR (no valvular mechanism mentioned) noted without other valvular lesions mentioned. She was recommended to be transferred to [facility] for CABG evaluation. 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 She also has an intracranial meningioma s/p gamma knife (this was dx in 10/2008 via MRI to evaluate DZ. GKRS was 08/14/2013), and [facility] brain scan now tapered down to every 4 years as the size of the meningioma has been reducing. She is a lifelong nonsmoker without no known COPD, no CHF or cardiac arrhythmia and known to patient. She denies recurrence ND since 32 yo ago and has not [...] cancers. FH:+CAD in both parents, both from [place] in 70-80s. SH: lifelong non smoker, no [...] Neurologic/Psychiatric: oriented to time, place and person, rn progressive care strength with 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 on the left [...] None SIGNATURE: Melisa Reza APRN.CNP PATIENT NAME: Cici Woodward DATE: January 06, 2020 TIME: 12:23 PM PAGER/CONTACT #:[phone] [facility] CONSULT PROG HNO ID: [id number] Author: Nettie Cheng CNP Service: Cardiovascular Disease Author Type: Nurse Practitioner [...] eval after presenting as a STEMI to [place]. ? She had been having URI sxs for the last week and was being treated with a 10 day course of amoxicillin. She had associated dry cough and intermittent SOB. Over the last 3 days she's been having bilateral arm pain, that radiated to her chest. She described it as a pressure. She presented to the [place] ED. EKG done in the emergency room revealed Q waves in III and aVF along with ST elevation. It was felt that patient was presenting late with acute ST elevation ND but due to ongoing chest pain that was about 2/10 in intensity she was evaluated and brought emergently to the cardiac [facility] for coronary angiography. Coronary angiography revealed multivessel coronary artery disease with MARTIN-3 flow in all the vessels and she was transferred to [facility] for CABG evaluation. Of note, she takes Plavix at home for her hx CVA and did receive Brilinta in the ED . Transthoracic echocardiogram done at [place] showed left ventricular ejection fraction of 30%, [...] on consult tentative surgery date is this Jeffery March 6. Currently on heparin drip. 2 history [...] sign off at this time SIGNATURE:Nettie Cheng APRN.COLLAR SEPARATOR PAGER: DATE / TIME of SERVICE: January 05, 2020 11:13 AM This note is not final until Authenticated by responsible provider. Normal [facility] Hemogram/Diffon 01-06-2020 Abs Immature Grans 0.08 thou/cmm High 0.00-0.05 [facility] Comment on above: Performed By: #### T ROP #### [place] [address] Abs Neut (ANC) 4.02 thou/cmm Normal 1.56-6.13 [facility] Comment on above: Performed By: #### T ROP #### [place] [address] Abs. Baso 0.03 thou/cmm Normal 0.01-0.08 [facility] Comment on above: Performed By: #### T ROP #### [place] [address] Abs. Green 0.85 thou/cmm High 0.27-0.70 [facility] Comment on above: Performed By: #### T ROP #### [place] [address] Basophils/100 WBC (Bld) 0.3 % Normal [facility] Comment on above: Performed By: #### T ROP #### [place] [address] Eosinophils (Bld) [#/Vol] 0.11 thou/cmm Normal 0.00-0.31 [facility] Comment on above: Performed By: #### T ROP #### [facility] [address] [place], [place] [address] Eosinophils/100 WBC (Bld) 1.2 % Normal [facility] Comment on above: Performed By: #### T ROP #### [facility] [address] [place], [place] [address] Immature Grans 0.90 % Normal [facility] Comment on above: Performed By: #### T ROP #### [facility] [address] [place], [place] [address] Lymphocytes (Bld) [#/Vol] 3.96 thou/cmm High 1.18-3.74 [facility] Comment on above: Performed By: #### T ROP #### [facility] [address] [place], [place] [address] Lymphocytes/100 WBC (Bld) 43.8 % Normal [facility] Comment on above: Performed By: #### T ROP #### [facility] [address] [place], [place] [address] Monocytes/100 WBC (Bld) 9.4 % Normal [facility] Comment on above: Performed By: #### T ROP #### [facility] [address] [place], [place] [address] Seg Neutrophil 44.4 % Normal [facility] Comment on above: Performed By: #### T ROP #### [facility] [address] [place], [place] [address] Erythrocyte distribution width (RBC) [Ratio] 13.7 % Normal 11.7-14.4 [facility] Comment on above: Performed By: #### T ROP #### [facility] [address] [place], [place] [address] Hematocrit (Bld) [Volume fraction] 32.7 % Low 34.1-44.9 [facility] Comment on above: Performed By: #### T ROP #### [facility] [address] [place], [place] [address] Hemoglobin (Bld) [Mass/Vol] 10.9 g/dL Low 11.2-15.7 [facility] Comment on above: Performed By: #### T ROP #### [facility] [address] [place] [address] MCH (RBC) [Entitic mass] 30.6 pg Normal 25.6-32.2 [facility] Comment on above: Performed By: #### T ROP #### [facility] [address] [place] [address] MCHC (RBC) [Mass/Vol] 33.3 % Normal 31.6-34.8 [facility] Comment on above: Performed By: #### T ROP #### [facility] [address] [place] [address] MCV (RBC) [Entitic vol] 91.9 fL Normal 79.4-94.8 [facility] Comment on above: Performed By: #### T ROP #### [facility] [address] [place] [address] Platelet mean volume (Bld) [Entitic vol] 11.6 fL Normal 9.4-12.3 [facility] Comment on above: Performed By: #### T ROP #### [facility] [address] [place] [address] Platelets (Bld) [#/Vol] 301 thou/cmm Normal 182-369 [facility] Comment on above: Performed By: #### T ROP #### [facility] [address] [place] [address] RBC (Bld) [#/Vol] 3.56 mil/cmm Low 3.93-5.22 [facility] Comment on above: Performed By: #### T ROP #### [facility] [address] [place] [address] RDW SD 45.9 fl Normal 36.4-46.3 [facility] Comment on above: Performed By: #### T ROP #### [facility] [address] [place] [address] WBC (Bld) [#/Vol] 9.05 thou/cmm Normal 3.98-10.04 [facility] Comment on above: Performed By: #### T ROP #### [facility] [address] [place] [address] PROGRESSon 2020 PROGRESS HNO ID: [id number] Author: Yanet Rivera Service: Thoracic Surgery Author Type: Physician Type: Progress Notes Filed: 01/06/2020 4:58 PM Note Text: Asked to assume cardiac surgical care by Chet. Cath films reviewed. W/U eval in progress and patient seen briefly and legs not so great looking at 1st glance. Informed patient she is tentatively on OR schedule for Sunday AM. P-will see again in AM with CDL TRUCK DRIVER. Teresita [facility] PROGRESS HNO ID: [id number] Author: Cesar Burroughs Service: Nephrology Author Type: [...] Recent Labs 01/06/20 0545 CO2 20* Specific [place], [place] Date Value Ref Range Status 12/25/2019 [...] ongoing SHA very high risk of needing PRINTS AND DRAWINGS CURATOR Will not recommend CABG until cr settles PRN diureis ok , if SOB or volume issues develop Avoid all renal toxins Avoid BP shifts repalce K Trend the cr Avoid all renal toxins We will follow closely Normal [facility] PROGRESS HNO ID: [id number] Author: Chandan Tavarez Service: Hospital Medicine Author Type: Physician Type: Progress Notes Filed: 01/06/2020 10:14 AM Note Text: DEPARTMENT OF HOSPITAL MEDICINE PROGRESS NOTE SERVICE DATE: 01/06/2020 SERVICE TIME: 10:06 AM Hospital Medicine/Primary Attending: Chandan Tavarez MD NIGHT AND WEEKEND COVERAGE: From 7am - 7pm, please call [phone] After 7pm, please call cross cover pager #[phone] Subjective INTERVAL HPI: Reports feeling better. Denied [...] 1800 vte non-pharmacologic prophylaxis - none indicated (ga,ny) 01/03/20 1800 vte current anticoag therapy ([place]) 01/03/20 1800 activity - mobilize patient ([place]) VTE Prophylaxis: VTE prophylaxis appropriate Disposition: Home Plan of care discussed with: Patient SIGNATURE: Chandan Tavarez MD PATIENT NAME: Cici Woodward DATE: January 06, 2020 TIME: 10:06 AM PAGER/CONTACT #: [phone] Normal [facility] Renal Panelon 01-06-2020 Creatinine [Mass/Vol] 1.87 mg/dL High 0.51-0.95 [facility] Comment on above: Result Comment: Use of this assay is not recommended for patients undergoing treatment with phenindione, due to the potential for falsely depressed results. Performed By: #### T ROP #### [facility] [address] [place], [place] [address] Phosphate [Mass/Vol] 3.4 mg/dL Normal 2.5-4.9 [facility] Comment on above: Performed By: #### T ROP #### [facility] [address] [place], [place] [address] Albumin [Mass/Vol] 2.5 g/dL Low 3.4-5.0 [facility] Comment on above: Performed By: #### T ROP #### [facility] [address] [place], [place] [address] Anion gap [Moles/Vol] 12 mmol/L Normal 8-16 [facility] Comment on above: Performed By: #### T ROP #### [facility] [address] [place], [place] [address] CO2 [Moles/Vol] 20 mmol/L Low 21-32 [facility] Comment on above: Performed By: #### T ROP #### [facility] [address] [place], [place] [address] Urea nitrogen [Mass/Vol] 48 mg/dL High 7-18 [facility] Comment on above: Performed By: #### T ROP #### [facility] [address] [place], [place] [address] Calcium [Mass/Vol] 8.2 mg/dL Low 8.5-10.1 [facility] Comment on above: Performed By: #### T ROP #### [facility] [address] [place], [place] [address] Glucose [Mass/Vol] 148 mg/dL High 70-99 [facility] Comment on above: Performed By: #### T ROP #### [facility] [address] [place], [place] [address] Chloride [Moles/Vol] 111 mmol/L High 98-107 [facility] Comment on above: Performed By: #### T ROP #### [facility] [address] [place], [place] [address] Potassium [Moles/Vol] 3.7 mmol/L Normal 3.5-5.1 [facility] Comment on above: Performed By: #### T ROP #### [facility] [address] [place] [address] Sodium [Moles/Vol] 139 mmol/L Normal 136-145 [facility] Comment on above: Performed By: #### T ROP #### [facility] [address] [place] [id number] ALLIED HEALTHon 01-05-2020 ALLIED HEALTH HNO ID: [id number] Author: Malinda Ochoa) RITA Zurita Service: Cardiac [...] Pole SIGNATURE: Malinda Zurita RN PATIENT NAME: Cici Woodward DATE: January 05, 2020 TIME: 2:47 PM PAGER/CONTACT #: [phone] Normal [facility] Activated PTTon 01-05-2020 aPTT Coag (Bld) [Time] [...] laboratory APTT reagent in use throughout the [facility]. Performed By: #### P T #### [facility] [address] [place] [id number] Basic Panelon 01-05-2020 Creatinine [Mass/Vol] 2.16 mg/dL High 0.51-0.95 [facility] Comment on above: Result Comment: Use of this assay is not recommended for patients undergoing treatment with phenindione, due to the potential for falsely depressed results. Performed By: #### P T #### [facility] [address] [place], [place] [address] Anion gap [Moles/Vol] 11 mmol/L Normal 8-16 [facility] Comment on above: Performed By: #### P T #### [facility] [address] [place], [place] [address] CO2 [Moles/Vol] 23 mmol/L Normal 21-32 [facility] Comment on above: Performed By: #### P T #### [facility] [address] [place], [place] [address] Glucose [Mass/Vol] 145 mg/dL High 70-99 [facility] Comment on above: Performed By: #### P T #### [facility] [address] [place], [place] [address] Urea nitrogen [Mass/Vol] 46 mg/dL High 7-18 [facility] Comment on above: Performed By: #### P T #### [facility] [address] [place], [place] [address] Calcium [Mass/Vol] 8.6 mg/dL Normal 8.5-10.1 [facility] Comment on above: Performed By: #### P T #### [facility] [address] [place], [place] [address] Chloride [Moles/Vol] 106 mmol/L Normal 98-107 [facility] Comment on above: Performed By: #### P T #### [facility] [address] [place], [place] [address] Potassium [Moles/Vol] 3.2 mmol/L Low 3.5-5.1 [facility] Comment on above: Performed By: #### P T #### [facility] [address] [place], [place] [address] Sodium [Moles/Vol] 137 mmol/L Normal 136-145 [facility] Comment on above: Performed By: #### P T #### [address] [address] CASE MGT INIT LIGIAon 2019 CASE MGT JORGE STRONG HNO ID: [id number] Author: Patience (Rn) RITA Christy Service: Care Management Author Type: Registered Nurse Type: Care Mgt Initial Assessment Filed: 01/05/2020 4:05 PM Note Text: CARE MANAGEMENT: ASSESSMENT AND DISCHARGE PLAN SERVICE DATE: January 05, 2020 SERVICE TIME: 4:02 PM PRIMARY CARE PHYSICIAN: Anju Pearce MD ADMISSION STATUS: Inpatient Needs Prior to Discharge: To Be Determined MEDICAL: MEDICARE A AND B Patient/Hall Coordinator Stated Goals: To return home to life as it was Health Insurance: Medicare;Comment([place] supplement) Health Issues Impacting Discharge Plan: None Last Discharge Date: 08/14/13 Is this Within the Past 30 days? Last discharge within 30 days: No Advance Directive: Current Advance Directive: Health Care Power of Continuity Clerk In Chart: No Agriculturist Attempted to Assist with AD Completion: No [...] Information Primary Emergency Contact: Chele Woodward Address: [address] [place] [address] Relation: Spouse Secondary Emergency Contact: Araceli Carlos Address: [address] [place] [address] [facility] Mobile Relation: Daughter Supportive Patient Contact:: [...] Mostly I feel financially burdened by my [id number] expenses for my prescription medication:: 0 - [...] she lives at home with her indept FOOD SPECIALIST. Await card surg eval for possible CABG. Will follow clinical progress. SIGNATURE: Patience Christy RN PATIENT NAME: Cici Woodward DATE: January 05, 2020 TIME: 4:02 PM PAGER/CONTACT #: [phone] [facility] CONSULT PROGon 01-05-2020 CONSULT PROG HNO ID: [id number] Author: Nettie Cheng CNP Service: Cardiovascular Disease Author Type: Nurse Practitioner [...] eval after presenting as a STEMI to [place]. ? She had been having URI sxs for the last week and was being treated with a 10 day course of amoxicillin. She had associated dry cough and intermittent SOB. Over the last 3 days she's been having bilateral arm pain, that radiated to her chest. She described it as a pressure. She presented to the [place] ED. EKG done in the emergency room revealed Q waves in III and aVF along with ST elevation. It was felt that patient was presenting late with acute ST elevation ND but due to ongoing chest pain that was about 2/10 in intensity she was evaluated and brought emergently to the cardiac [facility] for coronary angiography. Coronary angiography revealed multivessel coronary artery disease with MARTIN-3 flow in all the vessels and she was transferred to [facility] for CABG evaluation. Of note, she takes Plavix at home for her hx CVA and did receive Brilinta in the ED . Transthoracic echocardiogram done at [place] showed left ventricular ejection fraction of 30%, [...] date, due to Brilinta . SIGNATURE:Nettie Cheng APRN.CNP PAGER: DATE / TIME of SERVICE: January 05, 2020 11:13 AM This note is not final until Authenticated by responsible provider. Normal [facility] CONSULT PROG HNO ID: [id number] Author: Ann Echeverria Service: Endocrinology Author Type: [...] 30 years ago. ?H/o CAD and remote ND now admitted with NSTEMI who is found [...] tab(s) (LASIX) 40 mg ORAL DAILY - [JAN Hold due to Transfer] lisinopril 20 mg [...] CABG SIGNATURE: Ann Echeverria MD PATIENT NAME: Cici Woodward DATE: January 05, 2020 TIME: 8:40 AM PAGER: [phone] Normal [facility] CT CHEST WO IVCONon 01-05-20 CT CHEST WO IVCON * * *Final Report* * * DATE OF EXAM: Jan 05 2020 1:48PM [facility] 0541 - CT CHEST WO IVCON / [...] exam could be obtained in 12 months. Document Scanner: KURT Transcribe Date/Time: Jan 05 2020 2:13P Dictated by : ALEJANDRINA MINER MD This examination was interpreted and the report reviewed and electronically signed by: ALEJANDRINA MINER MD on Jan 05 2020 2:22PM EST Normal [facility] Hemogram/Diffon 01-05-2020 Interpreted by See below Normal [facility] Comment on above: Result Comment: Miriam Loving M.D., Pathologist Performed By: #### P T #### [place] [address] Abs Immature Grans 0.08 thou/cmm High 0.00-0.05 [facility] Comment on above: Performed By: #### P T #### [place] [address] Abs Neut (ANC) 5.52 thou/cmm Normal 1.56-6.13 [facility] Comment on above: Performed By: #### P T #### [place] [address] Abs. Baso 0.05 thou/cmm Normal 0.01-0.08 [facility] Comment on above: Result Comment: Smea r scanned; tech agrees with automated differential Performed By: #### P T #### [place] [address] Abs. Green 1.00 thou/cmm High 0.27-0.70 [facility] Comment on above: Performed By: #### P T #### [place] [address] Basophils/100 WBC (Bld) 0.4 % Normal [facility] Comment on above: Performed By: #### P T #### [place] [address] Eosinophils (Bld) [#/Vol] 0.09 thou/cmm Normal 0.00-0.31 [facility] Comment on above: Performed By: #### P T #### [place] [address] Eosinophils/100 WBC (Bld) 0.8 % Normal [facility] Comment on above: Performed By: #### P T #### [facility] [address] [place], [place] [address] Immature Grans 0.70 % Normal [facility] Comment on above: Performed By: #### P T #### [facility] [address] [place], [place] [address] Lymphocytes (Bld) [#/Vol] 5.07 thou/cmm High 1.18-3.74 [facility] Comment on above: Performed By: #### P T #### [facility] [address] [place], [place] [address] Lymphocytes/100 WBC (Bld) 42.9 % Normal [facility] Comment on above: Performed By: #### P T #### [facility] [address] [place], [place] [address] Monocytes/100 WBC (Bld) 8.5 % Normal [facility] Comment on above: Performed By: #### P T #### [facility] [address] [place] [address] Seg Neutrophil 46.7 % Normal [facility] Comment on above: Performed By: #### P T #### [facility] [address] [place] [address] Erythrocyte distribution width (RBC) [Ratio] 13.2 % Normal 11.7-14.4 [facility] Comment on above: Performed By: #### P T #### [facility] [address] [place] [address] Hematocrit (Bld) [Volume fraction] 35.9 % Normal 34.1-44.9 [facility] Comment on above: Performed By: #### P T #### [facility] [address] [place], [place] [address] Hemoglobin (Bld) [Mass/Vol] 12.0 g/dL Normal 11.2-15.7 [facility] Comment on above: Performed By: #### P T #### [facility] [address] [place], [place] [address] MCH (RBC) [Entitic mass] 30.2 pg Normal 25.6-32.2 [facility] Comment on above: Performed By: #### P T #### [facility] [address] [place] [address] MCHC (RBC) [Mass/Vol] 33.4 % Normal 31.6-34.8 [facility] Comment on above: Performed By: #### P T #### [facility] [address] [place] [address] MCV (RBC) [Entitic vol] 90.2 fL Normal 79.4-94.8 [facility] Comment on above: Performed By: #### P T #### [facility] [address] [place] [address] Platelet mean volume (Bld) [Entitic vol] 11.5 fL Normal 9.4-12.3 [facility] Comment on above: Performed By: #### P T #### [place] [address] Platelets (Bld) [#/Vol] 335 thou/cmm Normal 182-369 [facility] Comment on above: Performed By: #### P T #### [facility] [address] [place] [address] RBC (Bld) [#/Vol] 3.98 mil/cmm Normal 3.93-5.22 [facility] Comment on above: Performed By: #### P T #### [facility] [address] [place] [address] RDW SD 44.1 fl Normal 36.4-46.3 [facility] Comment on above: Performed By: #### P T #### [facility] [address] [place] [address] WBC (Bld) [#/Vol] 11.82 thou/cmm High 3.98-10.04 [facility] Comment on above: Performed By: #### P T #### [place] [address] PLAN OF CAREon 01-05-2020 PLAN OF CARE HNO ID: [id number] Author: Melisa Reza CNP Service: Cardiovascular Surgery [...] on her Echo and HC discs from [place]. We will present her case tomorrow at [...] with more than 50% of the total kcal-nx-hfca time of the visit in counseling / coordination of care. Melisa Reza APRN.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 Reccomendations Cr is worse CIIN likely Dc ISABELLA-I Back off on diuresis for 24 h With both expect the cr to peak, stabalize and then decrease With the ongoing SHA very high risk of needing PRINTS AND DRAWINGS CURATOR Will not recommend CABG until cr settles Avoid all renal toxins Avoid BP shifts repalce K Trend the cr Avoid all renal toxins We will follow closely Normal [facility] PROGRESS HNO ID: [id number] Author: Chandan Tavarez Service: Hospital Medicine Author Type: Physician Type: Progress Notes Filed: 01/05/2020 12:52 PM Note Text: DEPARTMENT OF HOSPITAL MEDICINE PROGRESS NOTE SERVICE DATE: 01/05/2020 SERVICE TIME: 12:44 PM Hospital Medicine/Primary Attending: Chandan Tavarez MD NIGHT AND WEEKEND COVERAGE: From 7am - 7pm, please call [phone] After 7pm, please call cross cover pager #[phone] Subjective INTERVAL HPI: Reports that she is [...] 1800 vte non-pharmacologic prophylaxis - none indicated (ga,ny) 01/03/20 1800 vte current anticoag therapy ([place]) 01/03/20 1800 activity - mobilize patient ([place], [place]) VTE Prophylaxis: VTE prophylaxis appropriate Disposition: Home Plan of care discussed with: Patient SIGNATURE: Chandan Tavarez MD PATIENT NAME: Cici Woodward DATE: January 05, 2020 TIME: 12:44 PM PAGER/CONTACT #: [phone] Normal [facility] US CAROTID BILon 01-05-2020 Bilirubin.direct [Mass/Vol] * * *Final Report* * * DATE OF EXAM: Jan 05 2020 12:57PM A2U 1077 - US CAROTID GIOVANY / PROCEDURE REASON: cva * * * * Physician Interpretation * * * * Non-Invasive Vascular Laboratory [facility] Carotid Duplex Bilateral/Complete Date of service/time: 01/05/2020 8:46:22 AM Name: MRS. CICI WOODWARD Date of : 1935 Age: 84 [...] Interpreting physician: Samuel Mendosa MD Final RP Document Scanner: [email or web address] Transcribe Date/Time: Jan 05 2020 8:46A Dictated by : SAMUEL MENDOSA MD This examination was interpreted and the report reviewed and electronically signed by: SAMUEL MENDOSA MD on Jan 06 2020 10:42AM EST Normal [facility] Activated PTTon 01-04-2020 aPTT Coag (Bld) [...] laboratory APTT reagent in use throughout the [facility]. Performed By: #### P T #### [place] [address] aPTT Coag (Bld) [Time] 53.2 s High [...] laboratory APTT reagent in use throughout the [facility]. Performed By: #### A PTT #### [place] [address] aPTT Coag (Bld) [Time] 38.5 s High [...] laboratory APTT reagent in use throughout the [facility]. Performed By: #### A PTT #### [place] [address] Basic Panelon 01-04-2020 Creatinine [Mass/Vol] 1.43 mg/dL High 0.51-0.95 [facility] Comment on above: Result Comment: Use of this assay is not recommended for patients undergoing treatment with phenindione, due to the potential for falsely depressed results. Performed By: #### A PTT #### [place] [address] Anion gap [Moles/Vol] 14 mmol/L Normal 8-16 [facility] Comment on above: Performed By: #### A PTT #### [place] [address] Calcium [Mass/Vol] 8.8 mg/dL Normal 8.5-10.1 [facility] Comment on above: Performed By: #### A PTT #### [place] [address] CO2 [Moles/Vol] 20 mmol/L Low 21-32 [facility] Comment on above: Performed By: #### A PTT #### [place] [address] Glucose [Mass/Vol] 202 mg/dL High 70-99 [facility] Comment on above: Performed By: #### A PTT #### [facility] [address] [place], [place] [address] Urea nitrogen [Mass/Vol] 37 mg/dL High 7-18 [facility] Comment on above: Performed By: #### A PTT #### [facility] [address] [place], [place] [address] Chloride [Moles/Vol] 105 mmol/L Normal 98-107 [facility] Comment on above: Performed By: #### A PTT #### [facility] [address] [place], [place] [address] Potassium [Moles/Vol] 4.5 mmol/L Normal 3.5-5.1 [facility] Comment on above: Performed By: #### A PTT #### [facility] [address] [place], [place] [address] Sodium [Moles/Vol] 134 mmol/L Low 136-145 [facility] Comment on above: Performed By: #### A PTT #### [facility] [address] [place], [place] [address] CONSULTon 01-04-2020 CONSULT HNO ID: [id number] Author: Cesar Burroughs Service: Nephrology Author Type: Physician Type: Consults Filed: 01/05/2020 10:31 AM Note Text: [facility] - Consultation PATIENT NAME: CICI WOODWARD I CSN: [id number] DATE OF : 1935 SEX/AGE: F/84 PATIENT TYPE: I HOSP [facility]: CARD LOCATION: [id number] DATE OF SERVICE: 01/04/2020 REFERRING PHYSICIAN: IISDRO WOLF REASON FOR EVALUATION: Acute kidney injury on top of chronic kidney disease, stage 3 in the setting of ST-elevation myocardial infarction. HISTORY OF PRESENT ILLNESS: The patient is an 84-year-old lady, who denies any pre-existing history of kidney disease. Her baseline creatinine appears to be around 1.3 to 1.4. She presented to the hospital in [place], complaining of weakness, tiredness, cough, and shortness [...] and she was brought to the cardiac micro lab analyst. Her coronary angiography revealed multivessel coronary artery [...] post angioplasty 30 years ago done in [facility]. 4. History of internal hemorrhoids. 5. [...] 75 a day. 10.Claritin 10 mg daily. 11.[place]-3 fatty acids 2 capsules daily. 12.Calcium carbonate [...] 3. I explained to her that the [facility] Kavya criteria for risk of acute [...] point of time. Cesar Burroughs MD DD:anthony /[id number] Normal [facility] CONSULT HNO ID: [id number] Author: Eileen Jones Service: Endocrinology Author Type: Physician Type: Consults Filed: 01/05/2020 12:46 PM Note Text: [facility] - Consultation PATIENT NAME: CICI WOODWARD I CSN: [id number] DATE OF : 1935 SEX/AGE: F/84 PATIENT TYPE: I HOSP [facility]: CARD LOCATION: [id number] DATE OF SERVICE: 01/04/2020 TIME OF SERVICE: 10:13 AM REFERRING PHYSICIAN: ISIDRO WOLF REASON FOR CONSULTATION: Diabetes management. This is Dr. Jones covering for Dr. Echeverria. HISTORY: The patient is an 84-year-old female, who was transferred from [place]. She was admitted there with chest pain and was found to have coronary artery disease. Patient has history of angioplasty 30 years ago. She had cardiac catheterization and was transferred to [facility]. Regarding diabetes, patient has history of [...] of hypertension, history of hyperlipidemia, history of ND 30 years ago when patient had angioplasty, [...] patient tomorrow. Eileen Jones MD Endocrinology SM:modl /[id number] [facility] CONSULT HNO ID: [id number] Author: Eileen Jones Service: Endocrinology Author Type: Physician Type: Consults Filed: 01/04/2020 10:11 AM Note Text: I have reviewed the patient's medical record in detail. Consult note dictated. See new insulin orders. Eileen Jones MD [facility] CONSULT HNO ID: [id number] Author: Cesar Burroughs Service: Nephrology Author Type: Physician Type: Consults Filed: 01/04/2020 3:02 PM Note Text: Chart reviwed Thanks full consult to follow [id number] SHA ON CKD 3 Trend the cr post the IV Contrast Follow the renal function Decrease ISABELLA-I and hold If cr > 30 % increase over baseline Avoid overt BP shifts At this time Risk of SHA needing PRINTS AND DRAWINGS CURATOR post the CABG is about 9 % [...] is available We will follow closely- Normal [facility] Creatinine,Urineon 0 Creatinine,Urine 181.0 mg/dL Normal [facility] Comment on above: Result Comment: Use of this assay is not recommended for patients undergoing treatment with phenindione, due to the potential for falsely depressed results. Performed By: #### P T #### [place] [id number] Ferritinon 01-04-2020 Ferritin [Mass/Vol] 205.90 ng/mL Normal 8.00-252.00 [facility] Comment on above: Performed By: #### A PTT #### [place] [address] Folateon 01-04-2020 Folate 68.70 ng/mL High 3.10-17.50 [facility] Comment on above: Performed By: #### A PTT #### [facility] [address] [place] [address] Hemogram/Diffon 01-04-2020 Abs Immature Grans 0.06 thou/cmm High 0.00-0.05 [facility] Comment on above: Performed By: #### A PTT #### [place] [address] Abs Neut (ANC) 7.01 thou/cmm High 1.56-6.13 [facility] Comment on above: Performed By: #### A PTT #### [place] [address] Abs. Baso 0.04 thou/cmm Normal 0.01-0.08 [facility] Comment on above: Result Comment: Smea r scanned; tech agrees with automated differential Performed By: #### A PTT #### [place] [address] Abs. Green 0.87 thou/cmm High 0.27-0.70 [facility] Comment on above: Performed By: #### A PTT #### [place] [address] Basophils/100 WBC (Bld) 0.3 % Normal [facility] Comment on above: Performed By: #### A PTT #### [place] [address] Eosinophils (Bld) [#/Vol] 0.05 thou/cmm Normal 0.00-0.31 [facility] Comment on above: Performed By: #### A PTT #### [place] [address] Eosinophils/100 WBC (Bld) 0.4 % Normal [facility] Comment on above: Performed By: #### A PTT #### [place] [address] Immature Grans 0.50 % Normal [facility] Comment on above: Performed By: #### A PTT #### [place] [address] Lymphocytes (Bld) [#/Vol] 3.93 thou/cmm High 1.18-3.74 [facility] Comment on above: Performed By: #### A PTT #### [facility] [address] [place], [place] [address] Lymphocytes/100 WBC (Bld) 32.9 % Normal [facility] Comment on above: Performed By: #### A PTT #### [facility] [address] [place], [place] [address] Monocytes/100 WBC (Bld) 7.3 % Normal [facility] Comment on above: Performed By: #### A PTT #### [facility] [address] [place], [place] [address] Seg Neutrophil 58.6 % Normal [facility] Comment on above: Performed By: #### A PTT #### [facility] [address] [place], [place] [address] Erythrocyte distribution width (RBC) [Ratio] 13.2 % Normal 11.7-14.4 [facility] Comment on above: Performed By: #### A PTT #### [facility] [address] [place], [place] [address] Hematocrit (Bld) [Volume fraction] 36.0 % Normal 34.1-44.9 [facility] Comment on above: Performed By: #### A PTT #### [facility] [address] [place], [place] [address] Hemoglobin (Bld) [Mass/Vol] 12.4 g/dL Normal 11.2-15.7 [facility] Comment on above: Performed By: #### A PTT #### [facility] [address] [place], [place] [address] MCH (RBC) [Entitic mass] 30.8 pg Normal 25.6-32.2 [facility] Comment on above: Performed By: #### A PTT #### [facility] [address] [place], [place] [address] MCHC (RBC) [Mass/Vol] 34.4 % Normal 31.6-34.8 [facility] Comment on above: Performed By: #### A PTT #### [address] [place], [place] [address] MCV (RBC) [Entitic vol] 89.3 fL Normal 79.4-94.8 [facility] Comment on above: Performed By: #### A PTT #### [facility] [address] [place] [address] Platelet mean volume (Bld) [Entitic vol] 11.6 fL Normal 9.4-12.3 [facility] Comment on above: Performed By: #### A PTT #### [place] [address] Platelets (Bld) [#/Vol] 333 thou/cmm Normal 182-369 [facility] Comment on above: Performed By: #### A PTT #### [place] [address] RBC (Bld) [#/Vol] 4.03 mil/cmm Normal 3.93-5.22 [facility] Comment on above: Performed By: #### A PTT #### [place] [address] RDW SD 43.2 fl Normal 36.4-46.3 [facility] Comment on above: Performed By: #### A PTT #### [place] [address] WBC (Bld) [#/Vol] 11.96 thou/cmm High 3.98-10.04 [facility] Comment on above: Performed By: #### A PTT #### [place] [address] Iron % Saturationon 01-04-20 20 Iron % Saturation 27 % Normal 20-55 [facility] Comment on above: Performed By: #### A PTT #### [place] [address] Iron Binding Cap. 292 ug/dL Normal 250-450 [facility] Comment on above: Result Comment: SPEC IMEN SLIGHTLY HEMOLYZED Performed By: #### A PTT #### [place] [address] Iron Serum 78 ug/dL Normal 50-170 [facility] Comment on above: Result Comment: SPEC IMEN SLIGHTLY HEMOLYZED Performed By: #### A PTT #### [facility] [address] [place] [address] NURSING PROGon 01-04-2020 NURSING PROG HNO ID: [id number] Author: Caio (Rn) RITA Simms Service: Nursing Author Type: Registered Nurse Type: Nursing Progress Note Filed: 01/04/2020 9:25 PM Note Text: Pt transported via wheelchair to [facility] in stable condition. Nurse notified that pt was in room, pt connected to telemetry monitoring device prior to this RN's departure. Normal [facility] PROGRESSon 01-04-2020 PROGRESS HNO ID: [id number] Author: Patience (Nini) Vitor Service: Cardiovascular Medicine Author Type: Resident Type: Progress Notes Filed: 01/04/2020 12:58 PM Note Text: CVICU Transfer Note 84 year old female PMH T2DM, CAD s/p PCI 30 years ago, CVA on Plavix who was admitted for coronary artery bypass graft eval after presenting as a STEMI to [place]. Over the last 3 days she's been having bilateral arm pain, that radiated to her chest. She presented to the [place] ED. EKG done in the emergency room revealed Q waves in III and aVF along with ST elevation. It was felt that patient was presenting late with acute ST elevation ND but due to ongoing chest pain that was about 2/10 in intensity she was evaluated and brought emergently to the cardiac [facility] for coronary angiography. Coronary angiography revealed multivessel coronary artery disease with MARTIN-3 flow in all the vessels and she was transferred to [facility] for CABG evaluation. Of note, she takes Plavix at home for her hx CVA and did receive Brilinta in the ED . Transthoracic echocardiogram done at [place] showed left ventricular ejection fraction of 30%, [...] system?- asked RN to request disc from [place] Continue with home BP meds C/w po furosemide 20 mg daily, patient having adequate diuresis Nephrology consult requested by Cardiothoracic Surgery for CKD Endocrinology consult for DM Continue with heparin drip? Transferred to medical floor-SOUND accepted Patience Adler CVICU Resident Pager #[phone] Normal [facility] PROGRESS HNO ID: [id number] Author: Darryn Phillips Service: Cardiovascular Medicine Author Type: Physician Type: Progress Notes Filed: 01/04/2020 1:22 PM Note Text: [facility] CVICU PROGRESS NOTE Service Date: 01/04/2020 Service Time: 8:30 AM HPI: 84 year old female PMH T2DM, CAD s/p PCI 30 years ago, CVA on Plavix who was admitted for coronary artery bypass graft eval after presenting as a STEMI to [place]. She had been having URI sxs for the last week and was being treated with a 10 day course of amoxicillin. She had associated dry cough and intermittent SOB. Over the last 3 days she's been having bilateral arm pain, that radiated to her chest. She described it as a pressure. She presented to the [place] ED. EKG done in the emergency room revealed Q waves in III and aVF along with ST elevation. It was felt that patient was presenting late with acute ST elevation ND but due to ongoing chest pain that was about 2/10 in intensity she was evaluated and brought emergently to the cardiac [facility] for coronary angiography. Coronary angiography revealed multivessel coronary artery disease with MARTIN-3 flow in all the vessels and she was transferred to [facility] for CABG evaluation. Of note, she takes Plavix at home for her hx CVA and did receive Brilinta in the ED . Transthoracic echocardiogram done at [place] showed left ventricular ejection fraction of 30%, [...] Inject 11 Units subcutaneously every morning. Insulin [place], Disposable, (BD ULTRA-FINE JOHN PEN NEEDLE) 32 [...] sugar Lancing Device (LANCING DEVICE WITH LANCETS) mis, Use to check blood sugar three times [...] 01/03/2020 HDL Cholesterol 42 01/03/2020 LDL Chol, [place] 99 01/03/2020 Cholesterol, Total 208 01/03/2020 Last [...] Akinetic. Mid-Inferior: Akinetic. Mid-inferoseptal : Akinetic. Anterior [place] : Hypokinetic. Inferior [place] : Dyskinetic. Lateral [place] : Hypokinetic. Septal [place] : Dyskinetic. Right Ventricle Normal RV size. [...] - asked RN to request disc from [place] Continue with amlodipine Continue with lisinopril C/w IV furosemide 20 mg daily, patient having adequate diuresis Nephrology consult requested by Cardiothoracic Surgery for CKD Heart healthy diet Continue with heparin drip C/w insulin glargine at 9 units and 6 units of lispro with meals with SSI scale 2 Continue with allopurinol SIGNATURE: Patience Adler DO PATIENT NAME: Cici Woodward DATE: January 04, 2020 TIME: 8:30 AM Pager: [phone] This patient was seen in conjunction with [...] I24.9 Darryn Phillips MD, FACC. Pager # [phone] Normal [facility] Renal Panelon 01-04-2020 Creatinine [Mass/Vol] 1.51 mg/dL High 0.51-0.95 [facility] Comment on above: Result Comment: Use of this assay is not recommended for patients undergoing treatment with phenindione, due to the potential for falsely depressed results. Performed By: #### P T #### [facility] [address] [place], [place] [address] Phosphate [Mass/Vol] 3.0 mg/dL Normal 2.5-4.9 [facility] Comment on above: Performed By: #### P T #### [facility] [address] [place], [place] [address] Albumin [Mass/Vol] 3.1 g/dL Low 3.4-5.0 [facility] Comment on above: Performed By: #### P T #### [address] [address] Anion gap [Moles/Vol] 14 mmol/L Normal 8-16 [facility] Comment on above: Performed By: #### P T #### [address] [address] Calcium [Mass/Vol] 9.0 mg/dL Normal 8.5-10.1 [facility] Comment on above: Performed By: #### P T #### [address] [address] CO2 [Moles/Vol] 21 mmol/L Normal 21-32 [facility] Comment on above: Performed By: #### P T #### [facility] [address] [place], [place] [address] Glucose [Mass/Vol] 284 mg/dL High 70-99 [facility] Comment on above: Performed By: #### P T #### [facility] [address] [place], [place] [address] Urea nitrogen [Mass/Vol] 38 mg/dL High 7-18 [facility] Comment on above: Performed By: #### P T #### [address] [address] Chloride [Moles/Vol] 103 mmol/L Normal 98-107 [facility] Comment on above: Performed By: #### P T #### [address] [address] Potassium [Moles/Vol] 4.2 mmol/L Normal 3.5-5.1 [facility] Comment on above: Performed By: #### P T #### [address] [address] Sodium [Moles/Vol] 134 mmol/L Low 136-145 [facility] Comment on above: Performed By: #### P T #### [address] [address] TSH, 3rd generationon 2019 TSH, 3rd generation 2.180 uIU/mL Normal 0.358-3.740 [facility] Comment on above: Performed By: #### A PTT #### [place] [address] Troponin Ion 01-04-2020 Troponin I.cardiac [Mass/Vol] 33.900 ng/mL Critically high 0.015-0.045 [facility] Comment on above: Performed By: #### A PTT #### [place] [address] Troponin I.cardiac [Mass/Vol] 45.800 ng/mL Critically high 0.015-0.045 [facility] Comment on above: Result Comment: RESU LT RECHECKED Performed By: #### T ROP #### [place] [address] US KIDNEY/BLADDERon 01-04-20 20 US KIDNEY/BLADDER * * *Final Report* * * DATE OF EXAM: Jan 04 2020 9:46PM [facility] 1055 - US KIDNEY/BLADDER / PROCEDURE REASON: [...] most often seen with medical renal disease. Document Scanner: KURT Transcribe Date/Time: Jan 04 2020 11:22P Dictated by : VISH MOYA MD This examination was interpreted and the report reviewed and electronically signed by: VISH MOYA MD on Jan 04 2020 11:23PM EST Normal [facility] Urine Proteinon 01-04-2020 Protein Ql (U) 65.5 mg/dL High 0.0-11.9 [facility] Comment on above: Performed By: #### P T #### [facility] [address] [place], [place] [address] Vitamin B12on 01-04-2020 Cobalamin (Vitamin B12) [Mass/Vol] 1106 pg/mL High 193-986 [facility] Comment on above: Performed By: #### A PTT #### [address] [address] Activated PTTon 01-03-2020 aPTT Coag (Bld) [Time] [...] laboratory APTT reagent in use throughout the [facility]. Performed By: #### A PTT #### [facility] [address] [place] [address] CONSULTon 01-03-2020 CONSULT HNO ID: [id number] Author: Westley Rosenberg Service: Cardiac Surgery Author Type: Physician Type: Consults Filed: 01/03/2020 6:29 PM Note Text: CARDIOTHORACIC SURGERY CONSULT / HANDP SERVICE DATE: 01/03/2020 SERVICE TIME: 6:20 PM Subjective PRIMARY SERVICE: Cardiothoracic Surgery CHIEF COMPLAINT: NSTEMI, MV CAD HPI: This is a 84 year old woman transferred from [facility] after she presented today with NSTEMI and was found to have severe MV CAD with EF 30%. She had an ND 30 years ago treated with angioplasty. She is now experiencing chest burning while trying to sleep. She denies dyspnea or orthopnea or edema. No ND or CHF in the intervening years. Risk [...] see catheterization report. Transthoracic echocardiogram done at [place] showed left ventricular ejection fraction of 30%, [...] ANGIOPLASTY 1988 - COLONOSCOP W/ OR W/O [facility] SPEC 08/29/07 - LAPAROSCOPIC CHOLEYCYSTECTOMY Cholecystectomy, [...] Disp: 5 Pen, Rfl: 5, Taking Insulin [place], Disposable, (BD ULTRA-FINE JOHN PEN NEEDLE) 32 [...] Taking Lancing Device (LANCING DEVICE WITH LANCETS) [facility], Use to check blood sugar three times [...] Inject 11 Units subcutaneously every morning. Insulin [place], Disposable, (BD ULTRA-FINE JOHN PEN NEEDLE) 32 [...] sugar Lancing Device (LANCING DEVICE WITH LANCETS) [facility], Use to check blood sugar three times [...] visit: cath and echo imaging pending Assessment/Plan Cici Woodward is a 84 year old woman with a h/o CAD and remote ND now admitted with NSTEMI who is found [...] consult SIGNATURE: Westley Rosenberg MD PATIENT NAME: Cici Woodward DATE: January 03, 2020 TIME: 6:20 PM PAGER/CONTACT #: [phone] Normal [facility] HISTORY PHYSICALon 0 HISTORY PHYSICAL HNO ID: [id number] Author: Darryn Phillips Service: Cardiovascular Medicine Author Type: Physician Type: HANDP Filed: 01/05/2020 9:48 AM Note Text: [facility] Cardiovascular Intensive Care Unit HANDP SERVICE DATE: 01/03/2020 SERVICE TIME: 5:08 PM Reason for admit: ACS, multivessel coronary artery disease awaiting coronary artery bypass graft eval HPI: This is a 84 year old female who was admitted for coronary artery bypass graft eval after presenting as a STEMI to [place]. Per [place]'s notes: The patient presents to the emergency department with chest pain. Patient is an 84-year-old female with history of prior ND 30 years ago treated with angioplasty. She [...] was presenting late with acute ST elevation ND but due to ongoing chest pain that was about 2/10 in intensity she was evaluated and brought emergently to the cardiac [facility] for coronary angiography. Because of acute on [...] see catheterization report. transthoracic echocardiogram done at [place] showed left ventricular ejection fraction of 30%, DWMA, no valvular disease. I spoke with the communications electrician supervisor at [place] who left me a voicemail stating they sent the disc with catheterization images on it, however I could not find it in her chart, RN and community center director were also unable to find a disc with the patient's records. EKG reviewed, showed sinus rhythm with ST elevations in III and aVF as well as incomplete RBBB. Cici Woodward has a pertinent PMH for: PAST [...] SINUS - Pure hypercholesterolemia - Stroke (cerebrum) ([facility]) 2013 - Type II or unspecified type diabetes mellitus without mention of complication, uncontrolled ([facility]) - Unspecified cardiovascular disease - Unspecified essential hypertension - Urgency of urination 2008 PAST SURGICAL HISTORY Procedure Laterality Date - ANGIOPLASTY 1988 - COLONOSCOP W/ OR W/O [facility] SPEC 08/29/07 - LAPAROSCOPIC CHOLEYCYSTECTOMY Cholecystectomy, [...] Inject 11 Units subcutaneously every morning. Insulin [place], Disposable, (BD ULTRA-FINE JOHN PEN NEEDLE) 32 [...] sugar Lancing Device (LANCING DEVICE WITH LANCETS) [facility], Use to check blood sugar three times [...] 110/69 Pulse: 87 74 84 83 Resp: Temp: TempSrc: SpO2: 95% 98% 99% Weight: [...] Echo Complete W/ Contrast 01/03/20 1330 MR#: [id number] Acct: [id number] Name: CICI WOODWARD I Rep #: [id number] : 1935 84 From: Wenceslao Mason MD Attending Dr: Maty Noel MD Status: ADM IN Ordering Dr: Gomez Noel MD Date: 01/03/20 Location: ICU Sex: F C Admitted: 01/03/20 Reason For Study: s/p ND Procedure This was a 2D Doppler, Color [...] Akinetic. Mid-Inferior: Akinetic. Mid-inferoseptal : Akinetic. Anterior [place] : Hypokinetic. Inferior [place] : Dyskinetic. Lateral [place] : Hypokinetic. Septal [place] : Dyskinetic. Right Ventricle Normal RV size. [...] - asked RN to request disc from [place] Continue with amlodipine Continue with lisinopril Start [...] allopurinol SIGNATURE: Colleen Rashid MD PATIENT NAME: Cici Woodward DATE: January 03, 2020 TIME: 5:08 PM PAGER: [phone] This patient was seen in conjunction with the resident staff, Nursing staff and Clinical Pharmacy. I have personally seen and examined the patient. I have reviewed labs, clinical data and pertinent images. I have discussed the case with the care team. I agree with the documentation, excepts as annotated. Patient who presented to [facility] with acute coronary syndrome within the past 48 hours. Underwent cardiac catheterization which revealed multivessel disease. She was transferred for further care at [facility]. Coronary artery bypass is being contemplated. The patient received the [place] yesterday aspirin for acute management. We will [...] systolic LV heart failure. Darryn Phillips MD, [facility] Pager # [phone] [facility] HOSPon 01-03-2020 HOSP Patient:Cici Woodward I MRN: Height:5' 3(1.6 m) Weight:158 [...] mL) inpn RESTASIS 0.05 % ophthalmic emulsion [place]-3 Fatty Acids 1,250 mg cap calcium carbonate [...] Allergies: Bactrim [Sulfamethoxazole-Trime thoprim] Codeine Prednisone Statins [Jidaywo-Xct-Gpt Reductase Inhibitors] Ultram [Tramadol Hcl] Date Verified: 01/08/20 Lab Values Lab Value Units Date High Low POTA* 4.0 mEq/L 01/09/2020 5.1 3.5 ALEX* 31.4 % 01/09/2020 44.9 34.1 Progress Notes ([facility]): Luann Nieto 01/06/2020 9:46 AM Signed Pt schedule to have CABG on 01/09/20 Progress Notes (): Darryn Phillips MD 01/05/2020 9:48 AM Addendum [facility] Cardiovascular Intensive Care Unit HANDP SERVICE [...] an 84-year-old female with history of prior ND 30 years ago treated with angioplasty. She [...] was presenting late with acute ST elevation ND but due to ongoing chest pain that was about 2/10 in intensity she was evaluated and brought emergently to the cardiac [facility] for coronary angiography. Because of acute on [...] see catheterization report. transthoracic echocardiogram done at [place] showed left ventricular ejection fraction of 30%, DWMA, no valvular disease. I spoke with the communications electrician supervisor at [place] who left me a voicemail stating they sent the disc with catheterization images on it, however I could not find it in her chart, RN and community center director were also unable to find a disc with the patient's records. EKG reviewed, showed sinus rhythm with ST elevations in III and aVF as well as incomplete RBBB. Cici Woodward has a pertinent PMH for: PAST [...] SINUS - Pure hypercholesterolemia - Stroke (cerebrum) ([facility]) 2013 - Type II or unspecified type diabetes mellitus without mention of complication, uncontrolled (H[facility]) - Unspecified cardiovascular disease - Unspecified essential hypertension - Urgency of urination 2008 PAST SURGICAL HISTORY Procedure Laterality Date - ANGIOPLASTY 1988 - COLONOSCOP W/ OR W/O [facility] SPEC 08/29/07 - LAPAROSCOPIC CHOLEYCYSTECTOMY Cholecystectomy, [...] Inject 11 Units subcutaneously every morning. Insulin [place], Disposable, (BD ULTRA-FINE JOHN PEN NEEDLE) 32 [...] sugar Lancing Device (LANCING DEVICE WITH LANCETS) [facility] Use to check blood sugar three times [...] Echo Complete W/ Contrast 01/03/20 1330 MR#: [id number] Acct: [id number] Name: CICI WOODWARD I Rep #: [id number] : 1935 84 From: Wenceslao Mason MD Attending Dr: Maty Noel MD Status: ADM IN Ordering Dr: Gomez Noel MD Date: 01/03/20 Location: ICU Sex: F C Admitted: 01/03/20 Reason For Study: s/p ND Procedure This was a 2D Doppler, Color [...] Akinetic. Mid-Inferior: Akinetic. Mid-inferoseptal : Akinetic. Anterior [place] : Hypokinetic. Inferior [place] : Dyskinetic. Lateral [place] : Hypokinetic. Septal [place] : Dyskinetic. Right Ventricle Normal RV size. [...] allopurinol SIGNATURE: Colleen Rashid MD PATIENT NAME: Cici Woodward DATE: January 03, 2020 TIME: 5:08 PM PAGER: [phone] This patient was seen in conjunction with the resident staff, Nursing staff and Clinical Pharmacy. I have personally seen and examined the patient. I have reviewed labs, clinical data and pertinent images. I have discussed the case with the care team. I agree with the documentation, excepts as annotated. Patient who presented to [facility] with acute coronary syndrome within the past 48 hours. Underwent cardiac catheterization which revealed multivessel disease. She was transferred for further care at [facility]. Coronary artery bypass is being contemplated. The patient received the [place] yesterday aspirin for acute management. We will [...] systolic LV heart failure. Darryn Phillips MD, [facility]. Pager # [phone] Previous Version Westley Rosenberg MD 01/03/2020 6:29 PM Signed CARDIOTHORACIC SURGERY CONSULT / HANDP SERVICE DATE: 01/03/2020 SERVICE TIME: 6:20 PM Subjective PRIMARY SERVICE: Cardiothoracic Surgery CHIEF COMPLAINT: NSTEMI, MV CAD HPI: This is a 84 year old woman transferred from [facility] after she presented today with NSTEMI and was found to have severe MV CAD with EF 30%. She had an ND 30 years ago treated with angioplasty. She is now experiencing chest burning while trying to sleep. She denies dyspnea or orthopnea or edema. No ND or CHF in the intervening years. Risk [...] see catheterization report. Transthoracic echocardiogram done at [place] showed left ventricular ejection fraction of 30%, [...] ANGIOPLASTY 1988 - COLONOSCOP W/ OR W/O [facility] SPEC 08/29/07 - LAPAROSCOPIC CHOLEYCYSTECTOMY Cholecystectomy, [...] Disp: 5 Pen, Rfl: 5, Taking Insulin [place], Disposable, (BD ULTRA-FINE JOHN PEN NEEDLE) 32 [...] Taking Lancing Device (LANCING DEVICE WITH LANCETS) [facility] Use to check blood sugar three times [...] Inject 11 Units subcutaneously every morning. Insulin [place], Disposable, (BD ULTRA-FINE JOHN PEN NEEDLE) 32 [...] sugar Lancing Device (LANCING DEVICE WITH LANCETS) [facility] Use to check blood sugar three times [...] visit: cath and echo imaging pending Assessment/Plan Cici Woodward is a 84 year old woman with a h/o CAD and remote ND now admitted with NSTEMI who is found [...] consult SIGNATURE: Westley Rosenberg MD PATIENT NAME: Cici Woodward DATE: January 03, 2020 TIME: 6:20 PM PAGER/CONTACT #: [phone] Eileen Jones MD 01/05/2020 12:[address] [facility] - Consultation PATIENT NAME: CICI WOODWARD I CSN: [id number] DATE OF : 1935 SEX/AGE: F/84 PATIENT TYPE: I [facility]OSP [facility]: CARD LOCATION: [id number] DATE OF SERVICE: 01/04/2020 TIME OF SERVICE: 10:13 AM REFERRING PHYSICIAN: ISIDRO WOLF REASON FOR CONSULTATION: Diabetes management. This is Dr. Jones covering for Dr. Echeverria. HISTORY: The patient is an 84-year-old female, who was transferred from [place]. She was admitted there with chest pain and was found to have coronary artery disease. Patient has history of angioplasty 30 years ago. She had cardiac catheterization and was transferred to [facility]. Regarding diabetes, patient has history of [...] of hypertension, history of hyperlipidemia, history of ND 30 years ago when patient had angioplasty, [...] patient tomorrow. Eileen Jones MD Endocrinology SM:modl /[id number] Cesar Burroughs MD 01/05/2020 10:[address] [facility] - Consultation PATIENT NAME: CICI WOODWARD I CSN: [id number] DATE OF : 1935 SEX/AGE: F/84 PATIENT TYPE: I HOSP [facility]: CARD LOCATION: [id number] DATE OF SERVICE: 01/04/2020 REFERRING PHYSICIAN: ISIDRO WOLF REASON FOR EVALUATION: Acute kidney injury on top of chronic kidney disease, stage [address] of [address]-elevation myocardial infarction. HISTORY OF PRESENT ILLNESS: The patient is an 84-year-old lady, who denies any pre-existing history of kidney disease. Her baseline creatinine appears to be around 1.3 to 1.4. She presented to the hospital in [place], complaining of weakness, tiredness, cough, and shortness [...] and she was brought to the cardiac micro lab analyst. Her coronary angiography revealed multivessel coronary artery [...] post angioplasty 30 years ago done in [facility]. 4. History of internal hemorrhoids. 5. [...] 75 a day. 10.Claritin 10 mg daily. 11.[place]-3 fatty acids 2 capsules daily. 12.Calcium carbonate [...] 3. I explained to her that the [facility] Kavya criteria for risk of acute [...] point of time. Cesar Burroughs MD DD:anthony /[id number] Previous Version Darryn Phillips MD 01/04/2020 1:22 PM Signed [facility] CVICU PROGRESS NOTE Service Date: 01/04/2020 Service Time: 8:30 AM HPI: 84 year old female PMH T2DM, CAD s/p PCI 30 years ago, CVA on Plavix who was admitted for coronary artery bypass graft eval after presenting as a STEMI to [place]. She had been having URI sxs for the last week and was being treated with a 10 day course of amoxicillin. She had associated dry cough and intermittent SOB. Over the last 3 days she's been having bilateral arm pain, that radiated to her chest. She described it as a pressure. She presented to the [place] ED. EKG done in the emergency room revealed Q waves in III and aVF along with ST elevation. It was felt that patient was presenting late with acute ST elevation ND but due to ongoing chest pain that was about 2/10 in intensity she was evaluated and brought emergently to the cardiac [facility] for coronary angiography. Coronary angiography revealed multivessel coronary artery disease with MARTIN-3 flow in all the vessels and she was transferred to [facility] for CABG evaluation. Of note, she takes Plavix at home for her hx CVA and did receive Brilinta in the ED . Transthoracic echocardiogram done at [place] showed left ventricular ejection fraction of 30%, [...] Inject 11 Units subcutaneously every morning. Insulin [place], Disposable, (BD ULTRA-FINE JOHN PEN NEEDLE) 32 [...] sugar Lancing Device (LANCING DEVICE WITH LANCETS) [facility] Use to check blood sugar three times [...] Akinetic. Mid-Inferior: Akinetic. Mid-inferoseptal : Akinetic. Anterior [place] : Hypokinetic. Inferior [place] : Dyskinetic. Lateral [place] : Hypokinetic. Septal [place] : Dyskinetic. Right Ventricle Normal RV size. [...] - asked RN to request disc from [place] Continue with amlodipine Continue with lisinopril C/w IV furosemide 20 mg daily, patient having adequate diuresis Nephrology consult requested by Cardiothoracic Surgery for CKD Heart healthy diet Continue with heparin drip C/w insulin glargine at 9 units and 6 units of lispro with meals with SSI scale 2 Continue with allopurinol SIGNATURE: Patience Adler DO PATIENT NAME: Cici Woodward DATE: January 04, 2020 TIME: 8:30 AM Pager: [phone] This patient was seen in conjunction with [...] ICD9: 411.1, ICD10: I24.9 Darryn Phillips MD, [facility]. Pager # [phone] Previous Version Cesar Burroughs MD 01/04/2020 3:02 PM Addendum Chart reviwed Thanks full consult to follow [id number] SHA ON CKD 3 Trend the cr post the IV Contrast Follow the renal function Decrease ISABELLA-I and hold If cr > 30 % increase over baseline Avoid overt BP shifts At this time Risk of SHA needing PRINTS AND DRAWINGS CURATOR post the CABG is about 9 % [...] eval after presenting as a STEMI to [place]. Over the last 3 days she's been having bilateral arm pain, that radiated to her chest. She presented to the [place] ED. EKG done in the emergency room revealed Q waves in III and aVF along with ST elevation. It was felt that patient was presenting late with acute ST elevation ND but due to ongoing chest pain that was about 2/10 in intensity she was evaluated and brought emergently to the cardiac [facility] for coronary angiography. Coronary angiography revealed multivessel coronary artery disease with MARTIN-3 flow in all the vessels and she was transferred to [facility] for CABG evaluation. Of note, she takes Plavix at home for her hx CVA and did receive Brilinta in the ED 2/29. Transthoracic echocardiogram done at [place] showed left ventricular ejection fraction of 30%, [...] system?- asked RN to request disc from [place] Continue with home BP meds C/w po furosemide 20 mg daily, patient having adequate diuresis Nephrology consult requested by Cardiothoracic Surgery for CKD Endocrinology consult for DM Continue with heparin drip? [facility] Pager #[phone] Caio Simms, RN, RN 01/04/2020 9:25 PM Signed Pt transported via wheelchair to [facility] in stable condition. Nurse notified that pt [...] 30 years ago. ?H/o CAD and remote ND now admitted with NSTEMI who is found [...] CABG SIGNATURE: Ann Echeverria MD PATIENT NAME: Cici Woodward DATE: January 05, 2020 TIME: 8:40 AM PAGER: [phone] Nettie Rach Cheng, 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, COLLAR SEPARATOR 01/05/2020 12:24 PM Signed CARDIOLOGY CONSULT PROGRESS NOTE CARDIOLOGY ATTENDING: Dr. Phillips INTERVAL HISTORY: History of present illness copied and updated 84 year old female PMH T2DM, CAD s/p PCI 30 years ago, CVA on Plavix who was admitted for coronary artery bypass graft eval after presenting as a STEMI to [place]. ? She had been having URI sxs for the last week and was being treated with a 10 day course of amoxicillin. She had associated dry cough and intermittent SOB. Over the last 3 days she's been having bilateral arm pain, that radiated to her chest. She described it as a pressure. She presented to the [place] ED. EKG done in the emergency room revealed Q waves in III and aVF along with ST elevation. It was felt that patient was presenting late with acute ST elevation ND but due to ongoing chest pain that was about 2/10 in intensity she was evaluated and brought emergently to the cardiac [facility] for coronary angiography. Coronary angiography revealed multivessel coronary artery disease with MARTIN-3 flow in all the vessels and she was transferred to [facility] for CABG evaluation. Of note, she takes Plavix at home for her hx CVA and did receive Brilinta in the ED . Transthoracic echocardiogram done at [place] showed left ventricular ejection fraction of 30%, [...] ,TROPT:3 Recent Labs 01/05/20 0354 01/04/20 1615 01/04/2091401/03/20 2355 01/03/20 1835 WBC 11.82* -- -- [...] heart failure: Patient euvolemic, asymptomatic Continue beta hsravan, Isabella on hold secondary to SHA Would like to resume at the guidance of nephrology, even after CABG. Planning: General cardiology will continue to follow, awaiting CABG surgical date, due to Brilinta . SIGNATURE:Nettie Cheng APRN.COLLAR SEPARATOR PAGER: DATE / TIME of SERVICE: January 05, 2020 11:13 AM This note is not final until Authenticated by responsible provider. Chandan Tavarez MD 01/05/2020 12:52 PM Signed DEPARTMENT OF HOSPITAL MEDICINE PROGRESS NOTE SERVICE DATE: 01/05/2020 SERVICE TIME: 12:44 PM Hospital Medicine/Primary Attending: Chandan Tavarez MD NIGHT AND WEEKEND COVERAGE: From 7am - 7pm, please call [phone] After 7pm, please call cross cover pager #[phone] Subjective INTERVAL HPI: Reports that she is [...] 1800 vte non-pharmacologic prophylaxis - none indicated ([place]) 01/03/20 1800 vte current anticoag therapy ([place], [place]) 01/03/20 1800 activity - mobilize patient ([place], [place]) VTE Prophylaxis: VTE prophylaxis appropriate Disposition: Home Plan of care discussed with: Patient SIGNATURE: Chandan Tavarez MD PATIENT NAME: Cici Woodward DATE: January 05, 2020 TIME: 12:44 PM PAGER/CONTACT #: [phone] Malinda Zurita RN, RN 01/05/2020 2:47 PM [...] Pole SIGNATURE: Malinda Zurita RN PATIENT NAME: Cici Woodward DATE: January 05, 2020 TIME: 2:47 PM PAGER/CONTACT #: [phone] Melisa Reza APRN.DAYANA, COLLAR SEPARATOR 01/05/2020 3:26 PM Signed CARDIOTHORACIC SURGERY PLAN OF CARE SERVICE DATE: January 05, 2020 SERVICE TIME: 3:18 PM Patient is visited today. She is resting comfortably in bed, alert and oriented ?3, denies active chest pain. Updated patient regarding the plan: we are waiting on her Echo and HC discs from [place]. We will present her case tomorrow at [...] with more than 50% of the total nbmx-ia-zakh time of the visit in counseling / coordination of care. Melisa Reza APRN.DAYANA Christy RN, RN 01/05/2020 4:05 PM Signed CARE MANAGEMENT: ASSESSMENT AND DISCHARGE PLAN SERVICE DATE: January 05, 2020 SERVICE TIME: 4:02 PM PRIMARY CARE PHYSICIAN: Anju Pearce MD ADMISSION STATUS: Inpatient Needs Prior to Discharge: To Be Determined MEDICAL: MEDICARE A AND B Patient/Hall Coordinator Stated Goals: To return home to life as it was Health Insurance: Medicare;Comment([place] supplement) Health Issues Impacting Discharge Plan: None Last Discharge Date: 08/14/13 Is this Within the Past 30 days? Last discharge within 30 days: No Advance Directive: Current Advance Directive: Health Care Power of Continuity Clerk In Chart: No Agriculturist Attempted to Assist with AD Completion: No [...] Information Primary Emergency Contact: Chele Woodward Address: [address] [place] [id number] Relation: Spouse Secondary Emergency Contact: Araceli Carlos Address: [address] [place] [address] Mobile Relation: Daughter Supportive Patient Contact:: Yes [...] Mostly I feel financially burdened by my [id number] expenses for my prescription medication:: 0 - [...] she lives at home with her indept FOOD SPECIALIST. Await card surg eval for possible CABG. Will follow clinical progress. SIGNATURE: Patience Christy RN PATIENT NAME: Cici Woodward DATE: January 05, 2020 TIME: 4:02 PM PAGER/CONTACT #: [phone] Cesar Burroughs MD 01/05/2020 4:47 PM Signed [...] Recent Labs 01/05/20 0354 CO2 23 Specific [place], Ur Date Value Ref Range Status 12/25/2019 [...] ongoing SHA very high risk of needing PRINTS AND DRAWINGS CURATOR Will not recommend CABG until cr settles Avoid all renal toxins Avoid BP shifts repalce K Trend the cr Avoid all renal toxins We will follow closely Chandan Tavarez MD 01/06/2020 10:14 AM Signed DEPARTMENT OF [facility] MEDICINE PROGRESS NOTE SERVICE DATE: 01/06/2020 SERVICE TIME: 10:06 AM Hospital Medicine/Primary Attending: Chandan Tavarez MD NIGHT AND WEEKEND COVERAGE: From 7am - 7pm, please call [phone] After 7pm, please call cross cover pager #[phone] Subjective INTERVAL HPI: Reports feeling better. Denied [...] 1800 vte non-pharmacologic prophylaxis - none indicated ([place]) 01/03/20 1800 vte current anticoag therapy ([place]) 01/03/20 1800 activity - mobilize patient ([place]) VTE Prophylaxis: VTE prophylaxis appropriate Disposition: Home Plan of care discussed with: Patient SIGNATURE: Chandan Tavarez MD PATIENT NAME: Cici Woodward DATE: January 06, 2020 TIME: 10:06 AM PAGER/CONTACT #: [phone] Nettie Cheng APRN.DAYANA, COLLAR SEPARATOR 01/06/2020 11:42 AM Signed CARDIOLOGY CONSULT PROGRESS NOTE CARDIOLOGY ATTENDING: Dr. Phillips INTERVAL HISTORY: History of present illness copied and updated 84 year old female PMH T2DM, CAD s/p PCI 30 years ago, CVA on Plavix who was admitted for coronary artery bypass graft eval after presenting as a STEMI to [place]. ? She had been having URI sxs for the last week and was being treated with a 10 day course of amoxicillin. She had associated dry cough and intermittent SOB. Over the last 3 days she's been having bilateral arm pain, that radiated to her chest. She described it as a pressure. She presented to the [place] ED. EKG done in the emergency room revealed Q waves in III and aVF along with ST elevation. It was felt that patient was presenting late with acute ST elevation ND but due to ongoing chest pain that was about 2/10 in intensity she was evaluated and brought emergently to the cardiac [facility] for coronary angiography. Coronary angiography revealed multivessel coronary artery disease with MARTIN-3 flow in all the vessels and she was transferred to [facility] for CABG evaluation. Of note, she takes Plavix at home for her hx CVA and did receive Brilinta in the ED . Transthoracic echocardiogram done at [place] showed left ventricular ejection fraction of 30%, [...] sign off at this time SIGNATURE:Nettie Cheng APRN.DAYANA PAGER: DATE / TIME of SERVICE: January 05, 2020 11:13 AM This note is not final until Authenticated by responsible provider. Melisa Reza APRN.DAYANA, DAYANA 01/06/2020 1:31 PM Signed CARDIOTHORACIC SURGERY POSTOP PROGRESS NOTE SERVICE DATE: 01/06/2020 SERVICE TIME: 12:23 PM Subjective S/P SURGERY: Procedure(s) (LRB): DATE OF SURGERY: 01/09/2020 LOS: 3 HPI: This is a 84 years old woman who was transferred from [facility] after presenting with resting chest pain [...] later time), STEMI protocol was activated in [place] and patient was given Hep Gtt and Brilinta prior undergoing HC. HC revealed severe MV CAD. Echo performed in [place] on showed: Normal LV size with moderate segmental systolic dysfunction, EF 30%. 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 There is also a 2+MR (no valvular mechanism mentioned) noted without other valvular lesions mentioned. She was recommended to be transferred to [facility] for CABG evaluation. 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 She also has an intracranial meningioma s/p gamma knife (this was dx in 10/2008 via MRI to evaluate DZ. GKRS was 08/14/2013), and follows physician [facility] at [facility] with surveillance brain scan now tapered down to every 4 years as the size of the meningioma has been reducing. She is a lifelong nonsmoker without no known COPD, no CHF or cardiac arrhythmia and known to patient. She denies recurrence ND since 32 yo ago and has not [...] cancers. FH:+CAD in both parents, both from ND in 70-80s. SH: lifelong non smoker, no [...] Neurologic/Psychiatric: oriented to time, place and person, rn progressive care strength with 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 on the left [...] None SIGNATURE: Melisa Reza APRN.CNP PATIENT NAME: Cici Woodward DATE: January 06, 2020 TIME: 12:23 PM PAGER/CONTACT #:[phone] Melisa Reza APRN.DAYANA, DAYANA 01/08/2020 10:58 AM Signed [facility] Surgery Pre-Op Open Heart Check List Patient Info: Cici Woodward 1935 84 year old Bactrim [Sulfamethoxazole-Trime thoprim]; Codeine; Prednisone; Statins [Nmildso-Nmh-Soq Reductase Inhibitors]; Ultram [Tramadol Hcl] HPI: This is a 84 years old woman who was transferred from [facility] after presenting with resting chest pain [...] later time), STEMI protocol was activated in [place] and patient was given Hep Gtt and Brilinta prior undergoing HC. HC revealed severe MV CAD. Echo performed in [place] on showed: Normal LV size with moderate segmental systolic dysfunction, EF 30%. 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 There is also a 2+MR (no valvular mechanism mentioned) noted without other valvular lesions mentioned. She was recommended to be transferred to [facility] for CABG evaluation. 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 She also has an intracranial meningioma s/p gamma knife (this was dx in 10/2008 via MRI to evaluate DZ. GKRS was 08/14/2013), and follows physician up at [facility] with surveillance brain scan now tapered down to every 4 years as the size of the meningioma has been reducing. She is a lifelong nonsmoker without no known COPD, no CHF or cardiac arrhythmia and known to patient. She denies recurrence ND since 32 yo ago and has not had any hospitalization related to CHF or arrhythmia. She denies N/V, diaphoresis, chest palpitation, orthopnea, paroxysmal nocturnal dyspnea, lower extremity edema, presyncope, syncope. She claims to be an active person going to gym 3 times a week. But did noted some SOB recently (more content not included)... Normal [facility] Hemogramon 01-03-2020 Erythrocyte distribution width (RBC) [Ratio] 13.2 % Normal 11.7-14.4 [facility] Comment on above: Performed By: #### C BC1 #### [facility] [address] [place] [address] Hematocrit (Bld) [Volume fraction] 38.4 % Normal 34.1-44.9 [facility] Comment on above: Performed By: #### C BC1 #### [place] [address] Hemoglobin (Bld) [Mass/Vol] 13.0 g/dL Normal 11.2-15.7 [facility] Comment on above: Performed By: #### C BC1 #### [place] [address] MCH (RBC) [Entitic mass] 30.2 pg Normal 25.6-32.2 [facility] Comment on above: Performed By: #### C BC1 #### [place] [address] MCHC (RBC) [Mass/Vol] 33.9 % Normal 31.6-34.8 [facility] Comment on above: Performed By: #### C BC1 #### [facility] [address] [place] [address] MCV (RBC) [Entitic vol] 89.1 fL Normal 79.4-94.8 [facility] Comment on above: Performed By: #### C BC1 #### [facility] [address] [place] [address] Platelet mean volume (Bld) [Entitic vol] 11.2 fL Normal 9.4-12.3 [facility] Comment on above: Performed By: #### C BC1 #### [facility] [address] [place], [place] [address] Platelets (Bld) [#/Vol] 315 thou/cmm Normal 182-369 [facility] Comment on above: Performed By: #### C BC1 #### [facility] [address] [place], [place] [address] RBC (Bld) [#/Vol] 4.31 mil/cmm Normal 3.93-5.22 [facility] Comment on above: Performed By: #### C BC1 #### [facility] [address] [place], [place] [address] RDW SD 43.4 fl Normal 36.4-46.3 [facility] Comment on above: Performed By: #### C BC1 #### [facility] [address] [place], [place] [address] WBC (Bld) [#/Vol] 10.82 thou/cmm High 3.98-10.04 [facility] Comment on above: Performed By: #### C BC1 #### [facility] [address] [place], [place] [address] Hgb A1con 01-03-2020 HbA1c (Bld) [Mass fraction] 8.4 % High 4.2-6.3 [facility] Comment on above: Result Comment: Meth od is National Glycohemoglobin Standardization Program (NGSP) compliant. Performed By: #### H A1C #### [facility] [address] [place], [place] [address] HbA1c (Bld) [Mass fraction] 194 mg/dl Normal [facility] Comment on above: Performed By: #### H A1C #### [facility] [address] [place], [place] [address] Lipid Profileon 01-03-2020 Cholesterol in HDL [Mass/Vol] 42 mg/dL Normal >40 [facility] Comment on above: Performed By: #### L IPD2 #### [place] [address] Cholesterol in LDL [Mass/Vol] 99 mg/dL Normal [facility] Comment on above: Result Comment: No C AD and with fewer than 2 CAD risk factors <160 mg/dL No CAD but with 2 or more CAD risk factors <130 mg/dL Definite CAD or other atherosclerotic disease <100 mg/dL Performed By: #### L IPD2 #### [facility] [address] [place], [place] [address] Cholesterol in LDL/Cholesterol in HDL [Mass ratio] 2.4 Normal 0.6-3.6 [facility] Comment on above: Result Comment: LDL, VLDL,LDL/HDL, Invalid if Triglyceride >400 Performed By: #### L IPD2 #### [facility] [address] [place], [place] [address] Cholesterol.total/Clau sterol in HDL [Mass ratio] 5.0 {ratio} Normal 1.8-5.3 [facility] Comment on above: Performed By: #### L IPD2 #### [facility] [address] [place], [place] [address] Cholesterol in VLDL [Mass/Vol] 67 mg/dL Normal <50 Desired [facility] Comment on above: Performed By: #### L IPD2 #### [facility] [address] [place], [place] [address] Triglyceride [Mass/Vol] 334 mg/dL High 0-149 [facility] Comment on above: Result Comment: < 20 0 Desirable Result invalid if not a fasting specimen. Performed By: #### L IPD2 #### [address] [address] Cholesterol [Mass/Vol] 208 mg/dL High 0-199 [facility] Comment on above: Result Comment: <200 Desirable 200-240 Borderline >240 High Performed By: #### L IPD2 #### [facility] [address] [place], [place] [address] MRSA Screenon 01-03-2020 MRSA DNA MARIS+probe Ql (Unsp spec) Test performed at [facility] No MRSA detected. Normal [facility] Comment on above: Performed By: #### P T #### [address] [address] N-terminal Pro-BNPon 020 Natriuretic peptide B (Bld) [Mass/Vol] 9817 pg/mL Normal [facility] Comment on above: Result Comment: Norm al Reference Range: Patients <75 yrs old <125pg/ml Patients >=75 yrs old <450 pg/ml Performed By: #### P BNP #### [facility] [address] [place] [address] Protimeon 01-03-2020 INR Coag (PPP) [Relative time] 0.94 {INR} Normal 0.90-1.30 [facility] Comment on above: Result Comment: Camille min K Antagonist (VKA) Therapeutic Range: INR 2 to 3 (Target INR of 2.5) Note: For patients treated with VKA drugs, such as warfarin, the [place] [employer] 2012 Guideline recommends [...] Chest 2012; 141:7S-47S Tomi MCLEAN et al. JAC 2017; 70: 252-289 Performed By: #### P T #### [place] [address] PT Coag (PPP) [Time] 10.2 s Normal 9.7-13.0 [facility] Comment on above: Performed By: #### P T #### [facility] [address] [place] [address] Troponin Ion 01-03-2020 Troponin I.cardiac [Mass/Vol] 33.700 ng/mL Critically high 0.015-0.045 [facility] Comment on above: Performed By: #### T ROP #### [place] [address] Culture, urine Bacteria identified Cx Nom (U) Positive [facility] Work Phone: Vital Signs Date Time Vital Sign Value Performing Clinician Facility 07-02-2025 14:00-0400 Body height 157.[address] Anju Pearce MD Work Phone: 2(225)480-404193 [place] [address] 07-02-2025 14:00-0400 Body mass index (BMI) [Ratio] 30.5 kg/m2 Dr. Anju Pearce MD Work Phone: 9(288)795-919393 [place] [address] 07-02-2025 14:00-0400 Body weight 75.[address] Anju Pearce MD Work Phone: 7(106)648-016693 [place] [address] 07-02-2025 14:00-0400 Diastolic blood pressure 64 mm[Hg] Dr. Anju Pearce MD Work Phone: 5(084)876-076493 [place] [address] 07-02-2025 14:00-0400 Heart rate 70 /min Dr. Anju Pearce MD Work Phone: 8(648)553-743993 [place] [address] 07-02-2025 14:00-0400 Respiratory rate 16 /min Dr. Anju Pearce MD Work Phone: 0(379)006-179693 [place] [address] 07-02-2025 14:00-0400 Systolic blood pressure 151 mm[Hg] Dr. Anju Pearce MD Work Phone: 7(638)650-324993 [place] [address] 06-20-2025 14:49-0400 Body temperature 97.5 [degF] Dr. Anju Pearce MD Work Phone: 0(230)409-693593 [place] [address] 06-20-2025 14:49-0400 Diastolic blood pressure 64 mm[Hg] Dr. Anju Pearce MD Work Phone: 3(247)884-285293 [place] [address] 06-20-2025 14:49-0400 Heart rate 82 /min Dr. Anju Pearce MD Work Phone: 4(397)737-347193 [place] [address] 06-20-2025 14:49-0400 Inhaled oxygen flow rate 2 L/min Dr. Anju Pearce MD Work Phone: 2(913)306-427193 [place] [address] 06-20-2025 14:49-0400 Respiratory rate 18 /min Dr. Anju Pearce MD Work Phone: 3(209)655-990893 [place] [address] 06-20-2025 14:49-0400 SaO2% (BldA) [Mass fraction] 93 % Dr. Anju Pearce MD Work Phone: 8(721)832-913193 [place] [address] 06-20-2025 14:49-0400 Systolic blood pressure 152 mm[Hg] Dr. Anju Pearce MD Work Phone: 2(115)624-453393 [place] [address] 06-17-2025 11:21-0400 Body height 157.[address] Anju Pearce MD Work Phone: 0(740)623-837293 [place] [address] 06-17-2025 11:21-0400 Body weight 73.[address] Anju Pearce MD Work Phone: 0(561)332-450493 [place] [address] 06-15-2025 06:00-0400 Body mass index (BMI) [Ratio] 29.7 kg/m2 Dr. Anju Pearce MD Work Phone: 4(617)920-707193 [place] [address] 06-14-2025 12:00-0400 Body temperature 97.7 [degF] Dr. Anju Pearce MD Work Phone: 8(289)231-446593 [place] [address] 06-14-2025 12:00-0400 Diastolic blood pressure 63 mm[Hg] Dr. Anju Pearce MD Work Phone: 8(148)353-521093 [place] [address] 06-14-2025 12:00-0400 Heart rate 69 /min Dr. Anju Pearce MD Work Phone: 7(892)801-398193 [place] [address] 06-14-2025 12:00-0400 Respiratory rate 18 /min Dr. Anju Pearce MD Work Phone: 5(382)048-912893 [place] [address] 06-14-2025 12:00-0400 SaO2% (BldA) [Mass fraction] 93 % Dr. Anju Pearce MD Work Phone: 1(790)073-752293 [place] [address] 06-14-2025 12:00-0400 Systolic blood pressure 163 mm[Hg] Dr. Anju Pearce MD Work Phone: [facility] 06-14-2025 08:19-0400 Body mass index (BMI) [Ratio] 29.9 kg/m2 Dr. Anju Pearce MD Work Phone: [facility] 06-14-2025 08:19-0400 Body weight 76.[address] Anju Pearce MD Work Phone: [facility] 06-14-2025 08:17-0400 Body height 160.[address] Anju Pearce MD Work Phone: [facility] 06-02-2025 10:06-0400 Body mass index (BMI) [Ratio] 30.58 kg/m2 Clement Cortes APRN.COLLAR SEPARATOR Work Phone: [facility] 06-02-2025 10:06-0400 Body temperature 97 [degF] Clement Cortes APRN.COLLAR SEPARATOR Work Phone: [facility] 06-02-2025 10:06-0400 Body weight 74.9 kg Clement Cortes APRN.COLLAR SEPARATOR Work Phone: [facility] 06-02-2025 10:06-0400 Diastolic blood pressure 66 mm[Hg] Clement Cortes APRN.COLLAR SEPARATOR Work Phone: [facility] 06-02-2025 10:06-0400 Heart rate 72 /min Clement Cortes APRN.COLLAR SEPARATOR Work Phone: [facility] 06-02-2025 10:06-0400 Respiratory rate 16 /min Clement Cortes APRN.COLLAR SEPARATOR Work Phone: [facility] 06-02-2025 10:06-0400 SaO2% (BldA) [Mass fraction] 95 % Clement Cortes APRN.COLLAR SEPARATOR Work Phone: [facility] 06-02-2025 10:06-0400 Systolic blood pressure 124 mm[Hg] Clement Cortes APRN.COLLAR SEPARATOR Work Phone: [facility] 05-14-2025 13:37-0400 Body height 156.5 cm [facility] PARTY BUS DRIVER.TRANSCRIPT EVALUATOR Work Phone: [facility] 05-14-2025 13:37-0400 Body mass index (BMI) [Ratio] 30.54 kg/m2 [facility].TRANSCRIPT EVALUATOR Work Phone: [facility] 05-14-2025 13:37-0400 Body weight 74.8 kg Ishmael Davis PARTY BUS DRIVER.TRANSCRIPT EVALUATOR Work Phone: [facility] 05-14-2025 13:37-0400 Diastolic blood pressure 77 mm[Hg] [facility] PARTY BUS DRIVER.TRANSCRIPT EVALUATOR Work Phone: [facility] 05-14-2025 13:37-0400 Heart rate 69 /min [facility] PARTY BUS DRIVER.TRANSCRIPT EVALUATOR Work Phone: [facility] 05-14-2025 13:37-0400 SaO2% (BldA) [Mass fraction] 96 % [facility] PARTY BUS DRIVER.TRANSCRIPT EVALUATOR Work Phone: [facility] 05-14-2025 13:37-0400 Systolic blood pressure 152 mm[Hg] [facility] PARTY BUS DRIVER.TRANSCRIPT EVALUATOR Work Phone: [facility] 04-30-2025 15:35-0400 Diastolic blood pressure 74 mm[Hg] Dr. Anju Pearce MD Work Phone: [facility] 04-30-2025 15:35-0400 Systolic blood pressure 174 mm[Hg] Dr. Anju Pearce MD Work Phone: [facility] 04-30-2025 15:26-0400 Body height 160.[address] Anju Pearce MD Work Phone: [facility] 04-30-2025 15:26-0400 Body mass index (BMI) [Ratio] 29 kg/m2 Dr. Anju Pearce MD Work Phone: [facility] 04-30-2025 15:26-0400 Body weight 74.[address] Anju Pearce MD Work Phone: [facility] 04-30-2025 15:26-0400 Heart rate 77 /min Dr. Anju Pearce MD Work Phone: [facility] 04-30-2025 15:26-0400 Respiratory rate 16 /min Dr. Anju Pearce MD Work Phone: [facility] 02-19-2025 12:00-0400 Diastolic blood pressure 69 mm[Hg] Ishmael Davis PARTY BUS DRIVER.TRANSCRIPT EVALUATOR Work Phone: [facility] 02-19-2025 12:00-0400 Heart rate 80 /min Ishmael Davis PARTY BUS DRIVER.TRANSCRIPT EVALUATOR Work Phone: [facility] 02-19-2025 12:00-0400 Respiratory rate 16 /min Ishmael Davis PARTY BUS DRIVER.TRANSCRIPT EVALUATOR Work Phone: [facility] 02-19-2025 12:00-0400 Systolic blood pressure 163 mm[Hg] Ishmael Davis PARTY BUS DRIVER.TRANSCRIPT EVALUATOR Work Phone: [facility] 02-19-2025 09:07-0400 Body mass index (BMI) [Ratio] 31.36 kg/m2 Caridad Anglin 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 Work Phone: [facility] 02-19-2025 09:07-0400 Body temperature 97 [degF] Caridad Anglin 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 Work Phone: [facility] 02-19-2025 09:07-0400 Body weight 76.8 kg Caridad Anglin 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 Work Phone: [facility] 02-19-2025 09:07-0400 Diastolic blood pressure 70 mm[Hg] Caridad Anglin 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 Work Phone: [facility] 02-19-2025 09:07-0400 Heart rate 83 /min Caridad Anglin 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 Work Phone: [facility] 02-19-2025 09:07-0400 Respiratory rate 18 /min Caridad Anglin 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 Work Phone: [facility] 02-19-2025 09:07-0400 SaO2% (BldA) [Mass fraction] 96 % Caridad Caogs 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 Work Phone: [facility] 02-19-2025 09:07-0400 Systolic blood pressure 159 mm[Hg] Caridad Anglin 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 Work Phone: [facility] 01-16-2025 12:39-0400 Body height 156.5 cm Anju Pearce MD Work Phone: [facility] 01-16-2025 12:39-0400 Body mass index (BMI) [Ratio] 30.13 kg/m2 Anju Pearce MD Work Phone: [facility] 01-16-2025 12:39-0400 Body temperature 97 [degF] Anju Pearce MD Work Phone: [facility] 01-16-2025 12:39-0400 Body weight 73.8 kg Anju Pearce MD Work Phone: [facility] 01-16-2025 12:39-0400 Diastolic blood pressure 80 mm[Hg] Anju Pearce MD Work Phone: [facility] 01-16-2025 12:39-0400 Heart rate 80 /min Anju Pearce MD Work Phone: [facility] 01-16-2025 12:39-0400 Respiratory rate 16 /min Anju Pearce MD Work Phone: [facility] 01-16-2025 12:39-0400 Systolic blood pressure 150 mm[Hg] Anju Pearce MD Work Phone: [facility] 01-05-2025 13:49-0500 Body temperature 97.9 [degF] Dr. Anju Pearce MD Work Phone: [facility] 01-05-2025 13:49-0500 Diastolic blood pressure 81 mm[Hg] Dr. Ajnu Pearce MD Work Phone: [facility] 01-05-2025 13:49-0500 Heart rate 68 /min Dr. Anju Pearce MD Work Phone: [facility] 01-05-2025 13:49-0500 Respiratory rate 18 /min Dr. Anju Pearce MD Work Phone: [facility] 01-05-2025 13:49-0500 SaO2% (BldA) [Mass fraction] 96 % Dr. Anju Pearce MD Work Phone: [facility] 01-05-2025 13:49-0500 Systolic blood pressure 161 mm[Hg] Dr. Anju Pearce MD Work Phone: [facility] 01-05-2025 11:12-0500 Body mass index (BMI) [Ratio] 30.9 kg/m2 Dr. Anju Pearce MD Work Phone: [facility] 01-05-2025 11:12-0500 Body weight 79.[address] Anju Pearce MD Work Phone: [facility] 09-12-2024 13:00-0500 Body mass index (BMI) [Ratio] 30.46 kg/m2 Ishmael Davis PARTY BUS DRIVER.TRANSCRIPT EVALUATOR Work Phone: [facility] 09-12-2024 13:00-0500 Body weight 78 kg Ishmael Davis PARTY BUS DRIVER.TRANSCRIPT EVALUATOR Work Phone: [facility] 09-12-2024 13:00-0500 Diastolic blood pressure 67 mm[Hg] Ishmael Davis PARTY BUS DRIVER.TRANSCRIPT EVALUATOR Work Phone: [facility] 09-12-2024 13:00-0500 Heart rate 80 /min Ishmael Davis PARTY BUS DRIVER.TRANSCRIPT EVALUATOR Work Phone: [facility] 09-12-2024 13:00-0500 Respiratory rate 16 /min Ishmael Davis PARTY BUS DRIVER.TRANSCRIPT EVALUATOR Work Phone: [facility] 09-12-2024 13:00-0500 Systolic blood pressure 150 mm[Hg] Ishmael Davis PARTY BUS DRIVER.TRANSCRIPT EVALUATOR Work Phone: [facility] 05-12-2024 13:08-0400 Diastolic blood pressure 68 mm[Hg] Ishmael Davis PARTY BUS DRIVER.TRANSCRIPT EVALUATOR Work Phone: [facility] 05-12-2024 13:08-0400 Heart rate 69 /min Ishmael Davis PARTY BUS DRIVER.TRANSCRIPT EVALUATOR Work Phone: [facility] 05-12-2024 13:08-0400 Systolic blood pressure 147 mm[Hg] Ishmael Davis PARTY BUS DRIVER.TRANSCRIPT EVALUATOR Work Phone: [facility] 05-12-2024 13:07-0400 Body mass index (BMI) [Ratio] 30.47 kg/m2 Ishmael Davis PARTY BUS DRIVER.TRANSCRIPT EVALUATOR Work Phone: [facility] 05-12-2024 13:07-0400 Body weight 78.02 kg Ishmael Davis PARTY BUS DRIVER.TRANSCRIPT EVALUATOR Work Phone: [facility] 05-12-2024 13:07-0400 Respiratory rate 16 /min Ishmael Davis PARTY BUS DRIVER.TRANSCRIPT EVALUATOR Work Phone: [facility] 01-11-2024 13:54-0500 Diastolic blood pressure 68 mm[Hg] Anju Pearce MD Work Phone: [facility] 01-11-2024 13:54-0500 Systolic blood pressure 128 mm[Hg] Anju Pearce MD Work Phone: [facility] 09-20-2023 13:14-0500 Diastolic blood pressure 68 mm[Hg] Ishmael Davis PARTY BUS DRIVER.TRANSCRIPT EVALUATOR Work Phone: [facility] 09-20-2023 13:14-0500 Heart rate 75 /min Ishmael Davis PARTY BUS DRIVER.TRANSCRIPT EVALUATOR Work Phone: [facility] 09-20-2023 13:14-0500 Systolic blood pressure 145 mm[Hg] Ishmael Davis PARTY BUS DRIVER.TRANSCRIPT EVALUATOR Work Phone: [facility] 09-20-2023 13:13-0500 Body weight 77.56 kg Ishmael Davis PARTY BUS DRIVER.TRANSCRIPT EVALUATOR Work Phone: [facility] 09-20-2023 13:13-0500 Respiratory rate 16 /min Ishmael Davis PARTY BUS DRIVER.TRANSCRIPT EVALUATOR Work Phone: [facility] 09-05-2023 11:46-0400 Diastolic blood pressure 68 mm[Hg] Iesha Bairon 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 Work Phone: [facility] 09-05-2023 11:46-0400 Heart rate 80 /min Iesha Bairon 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 Work Phone: [facility] 09-05-2023 11:46-0400 Systolic blood pressure 156 mm[Hg] Iesha Bairon 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 Work Phone: [facility] 09-05-2023 11:44-0400 Body weight 78.02 kg Iesha Bairon 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 Work Phone: [facility] 09-05-2023 11:44-0400 SaO2% (BldA) [Mass fraction] 98 % Iesha Bairon 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 Work Phone: [facility] 08-23-2023 14:43-0400 Diastolic blood pressure 77 mm[Hg] Ishmael Davis PARTY BUS DRIVER.TRANSCRIPT EVALUATOR Work Phone: [facility] 08-23-2023 14:43-0400 Heart rate 71 /min Ishmael Davis PARTY BUS DRIVER.TRANSCRIPT EVALUATOR Work Phone: [facility] 08-23-2023 14:43-0400 Systolic blood pressure 160 mm[Hg] Ishmael Davis PARTY BUS DRIVER.TRANSCRIPT EVALUATOR Work Phone: [facility] 08-23-2023 14:39-0400 Body weight 75.75 kg Ishmael Davis PARTY BUS DRIVER.TRANSCRIPT EVALUATOR Work Phone: [facility] 08-23-2023 14:39-0400 Respiratory rate 16 /min Ishmael Davis PARTY BUS DRIVER.TRANSCRIPT EVALUATOR Work Phone: [facility] 08-14-2023 17:36-0400 Diastolic blood pressure 80 mm[Hg] Anju Pearce MD Work Phone: [facility] 08-14-2023 17:36-0400 Systolic blood pressure 150 mm[Hg] Anju Pearce MD Work Phone: [facility] 08-14-2023 16:43-0400 Body temperature 96.1 [degF] Anju Pearce MD Work Phone: [facility] 08-14-2023 16:43-0400 Body weight 75.75 kg Anju Pearce MD Work Phone: [facility] 08-14-2023 16:43-0400 Heart rate 79 /min Anju Pearce MD Work Phone: [facility] 08-14-2023 16:43-0400 Respiratory rate 18 /min Anju Pearce MD Work Phone: [facility] 08-14-2023 16:43-0400 SaO2% (BldA) [Mass fraction] 97 % Anju Pearce MD Work Phone: [facility] 07-21-2023 10:42-0400 Body temperature 98.2 [degF] Clement Cortes APRN.COLLAR SEPARATOR Work Phone: [facility] 07-21-2023 10:42-0400 Body weight 74.84 kg Clement Cortes APRN.COLLAR SEPARATOR Work Phone: [facility] 07-21-2023 10:42-0400 Diastolic blood pressure 94 mm[Hg] Clement Cortes APRN.COLLAR SEPARATOR Work Phone: [facility] 07-21-2023 10:42-0400 Heart rate 104 /min Clement Cortes APRN.COLLAR SEPARATOR Work Phone: [facility] 07-21-2023 10:42-0400 Respiratory rate 18 /min Clement Cortes APRN.COLLAR SEPARATOR Work Phone: [facility] 07-21-2023 10:42-0400 SaO2% (BldA) [Mass fraction] 97 % Clement Cortes APRN.COLLAR SEPARATOR Work Phone: [facility] 07-21-2023 10:42-0400 Systolic blood pressure 152 mm[Hg] Clement Cortes APRN.COLLAR SEPARATOR Work Phone: [facility] 01-09-2023 14:13-0500 Body temperature 98.29 [degF] Anju Pearce MD Work Phone: [facility] 01-09-2023 14:13-0500 Body weight 78.93 kg Anju Pearce MD Work Phone: [facility] 01-09-2023 14:13-0500 Diastolic blood pressure 72 mm[Hg] Anju Pearce MD Work Phone: [facility] 01-09-2023 14:13-0500 Heart rate 78 /min Anju Pearce MD Work Phone: [facility] 01-09-2023 14:13-0500 Respiratory rate 18 /min Anju Pearce MD Work Phone: [facility] 01-09-2023 14:13-0500 SaO2% (BldA) [Mass fraction] 97 % Anju Pearce MD Work Phone: [facility] 01-09-2023 14:13-0500 Systolic blood pressure 122 mm[Hg] Anju Pearce MD Work Phone: [facility] 01-01-2023 13:33-0500 Diastolic blood pressure 71 mm[Hg] Iesha Barion 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 Work Phone: [facility] 01-01-2023 13:33-0500 Systolic blood pressure 148 mm[Hg] Iesha Bairon 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 Work Phone: [facility] 01-01-2023 13:31-0500 Body weight 78.93 kg Iesha Bairon 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 Work Phone: [facility] 01-01-2023 13:31-0500 Heart rate 71 /min Iesha Bairon 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 Work Phone: [facility] 01-01-2023 13:31-0500 SaO2% (BldA) [Mass fraction] 98 % Iesha Bairon 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 Work Phone: [facility] 10-03-2022 13:54-0500 Body height 160.[address] Anju Pearce Work Phone: 3(542)255-050793 [place] [address] 10-03-2022 13:54-0500 Body mass index (BMI) [Ratio] 30.1 kg/m2 Dr. Anju Pearce Work Phone: 4(113)332-026493 [place] [address] 10-03-2022 13:54-0500 Body temperature 97.6 [degF] Dr. Anju Pearce Work Phone: 4(109)474-044993 [place] [address] 10-03-2022 13:54-0500 Body weight 77.[address] Anju Pearce Work Phone: 4(774)387-688993 [place] [address] 10-03-2022 13:54-0500 Diastolic blood pressure 96 mm[Hg] Dr. Anju Pearce Work Phone: 4(104)164-075393 [place] [address] 10-03-2022 13:54-0500 Heart rate 74 /min Dr. Anju Pearce Work Phone: 6(244)444-593193 [place] [address] 10-03-2022 13:54-0500 Respiratory rate 16 /min Dr. Anju Pearce Work Phone: 2(493)634-283993 [place] [address] 10-03-2022 13:54-0500 SaO2% (BldA) [Mass fraction] 97 % Dr. Anju Pearce Work Phone: 9(831)287-058493 [place] [address] 10-03-2022 13:54-0500 Systolic blood pressure 170 mm[Hg] Dr. Anju Pearce Work Phone: 5(642)583-915493 [place] [address] 07-13-2022 15:19-0400 Body height 157.[address] Anju Pearce Work Phone: 8(540)382-129693 [place] [address] Work Phone: 07-13-2022 15:14-0400 Body mass index (BMI) [Ratio] 31.6 kg/m2 Dr. Anju Pearce Work Phone: 7(905)947-415776 [place] [address] Work Phone: 07-13-2022 15:14-0400 Body weight 78.[address] Anju Pearce Work Phone: [facility] Work Phone: 07-13-2022 15:14-0400 Diastolic blood pressure 76 mm[Hg] Dr. Anju Pearce Work Phone: [facility] Work Phone: 07-13-2022 15:14-0400 Systolic blood pressure 134 mm[Hg] Dr. Anju Pearce Work Phone: [facility] Work Phone: 06-25-2022 09:12-0400 Body temperature 98.2 [degF] Patsy Geo 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 Work Phone: [facility] 06-25-2022 09:12-0400 Body weight 79.38 kg Patsy Geo 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 Work Phone: [facility] 06-25-2022 09:12-0400 Diastolic blood pressure 78 mm[Hg] Patsy Geo 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 Work Phone: [facility] 06-25-2022 09:12-0400 Heart rate 96 /min Patsy Geo 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 Work Phone: [facility] 06-25-2022 09:12-0400 Respiratory rate 18 /min Patsy Geo 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 Work Phone: [facility] 06-25-2022 09:12-0400 SaO2% (BldA) [Mass fraction] 97 % Patsy Geo 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 Work Phone: [facility] 06-25-2022 09:12-0400 Systolic blood pressure 142 mm[Hg] Patsy Geo 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 Work Phone: [facility] 01-10-2020 06:24-0500 Body temperature 36.7 Deg Dinora [facility] Comment on above: Performed By: #### PBNP #### [place] [address] 01-09-2020 16:36-0500 Body temperature 36.0 Deg Dinora [facility] Comment on above: Performed By: #### [email or web address] #### [facility] [address] [place], [place] [address] Encounters Encounter Date Encounter Type Care Provider Facility Start: 07-16-2025 ambulatory Anju Quijano y:[facility] Start: 07-14-2025 End: 07-14-2025 ambulatory Ishmael Davis APRN.TRANSCRIPT EVALUATOR Work Phone: [facility] [place] Comment on above: [facility] Start: 07-07-2025 End: 07-16-2025 ambulatory Ishmael Davis PARTY BUS DRIVER.TRANSCRIPT EVALUATOR Work Phone: [facility] [place] Comment on above: Yves Start: 07-03-2025 End: 07-03-2025 ambulatory Anju Pearce MD Work Phone: [facility] [place] Comment on above: Yves Start: 07-02-2025 End: 07-02-2025 Patient encounter procedure Marika George [facility] Work Phone: Start: 07-02-2025 End: 07-03-[address] Anju Pearce MD Work Phone: -[facility] Comment on above: Yves Start: 06-20-2025 Non-patient / Non-visit Dr. Lillian Mae MD -[facility] Work Phone: Start: 06-19-2025 Non-patient / Non-visit Dr. Lillian Mae MD -[facility] Work Phone: Start: 06-18-2025 Non-patient / Non-visit Dr. Lillian Mae MD -[facility] Work Phone: Start: 06-17-2025 ambulatory Anju Quijano y:[facility] Start: 06-17-2025 Non-patient / Non-visit Dr. Catie carroll MD -[facility] Start: 06-16-2025 End: 06-16-2025 ambulatory Hal Holliday MA [facility] Start: 06-16-2025 End: 06-16-2025 Patient encounter procedure Hal Holliday MA [facility] Comment on above: Population Health Na vigation Outreach ([facility] Start: 06-16-2025 Non-patient / Non-visit Dr. Lillian Mae MD -[facility] Work Phone: Start: 06-15-2025 Non-patient / Non-visit Dr. Lillian Mae MD -[facility] Work Phone: Start: 06-14-2025 Non-patient / Non-visit Dr. Ventura casey MD -[facility] Work Phone: Start: 06-14-2025 End: 06-14-2025 ambulatory Cameron Freeman MD Work Phone: [facility] [place] Start: 06-14-2025 End: 06-20-2025 Evaluation and management of inpatient Dr. Ventura Ivy MD -[facility] 3 Work Phone: Start: 06-02-2025 End: 06-02-2025 Patient encounter procedure Clement Cortes APRN.COLLAR SEPARATOR Work Phone: [facility] [place] Comment on above: Pelvic pain (Primary Dx); Hematuria, unspecified type Start: 06-02-2025 End: 06-02-2025 ambulatory ANJU TALAMPAS Facility:[facility] Start: 05-14-2025 End: 05-14-2025 ambulatory ISHMAEL DAIVS Facility:[facility] Start: 05-14-2025 End: 05-14-2025 Patient encounter procedure Ishmael Davis PARTY BUS DRIVER.TRANSCRIPT EVALUATOR Work Phone: [facility] [place] Comment on [...] (HCC) Start: 05-13-2025 End: 05-13-2025 ambulatory ANJU PEARCE Facility:[facility] Start: 05-06-2025 End: 05-11-2025 ambulatory Hal Holliday MA [facility] [place] Start: 05-06-2025 End: 05-11-2025 Patient encounter procedure Hal Holliday MA [facility] Comment on above: Population Health Na vigation Outreach ([facility] ) Start: 05-05-2025 Non-patient / Non-visit Dr. Cornelia christian MD -[facility] Work Phone: Start: 04-30-2025 End: 04-30-2025 Patient encounter procedure Marika PADILLA -[facility] Work Phone: Start: 04-30-2025 End: 04-30-[address] Anju Pearce MD Work Phone: [facility] Work Phone: Start: 04-21-2025 End: 04-21-2025 Telephone encounter Anju Pearce MD Work Phone: [facility] [place] Comment on above: Patient Question Refill Request Start: 04-01-2025 End: 04-02-2025 Telephone encounter Anju Pearce MD Work Phone: [facility] [place] Comment on above: Medication Request Start: 03-18-2025 End: 03-18-2025 Refill Anju Pearce MD Work Phone: [address] [place] [address] Comment on above: Refill Request Start: 03-02-2025 End: 05-02-2025 Follow-up encounter Ishmael Davis APRN.TRANSCRIPT EVALUATOR Work Phone: [facility] [place] Start: 02-27-2025 End: 04-29-2025 Follow-up encounter Ishmael Davis APRN.CNS Work Phone: [facility] [place] Start: 02-27-2025 End: 02-27-2025 ambulatory ANJU JEANIEMARIA M Facility:[facility] Start: 02-20-2025 End: 02-20-2025 Follow-up encounter Reesegeorge Ga 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 Work Phone: [facility] Start: 02-19-2025 End: 02-19-2025 Office outpatient visit 25 minutes Ishmael Duncans PARTY BUS DRIVER.TRANSCRIPT EVALUATOR Work Phone: [facility] [place] Comment on above: Pleural effusion (Pr imary Dx); Chronic heart failure with preserved ejection fraction (HCC); Type 2 diabetes mellitus with stage 3b chronic kidney disease, with long-term current use of insulin (HCC); Hyperlipidemia, unspecified hyperlipidemia type Start: 02-19-2025 End: 02-19-2025 ambulatory [facility] Facility:[facility] Start: 02-19-2025 End: 02-19-2025 Subsequent hospital visit by physician Xr [facility] [place] Work Phone: Radiology Comment on above: Acute cough [R05.1] Start: 02-19-2025 End: 02-19-2025 Patient encounter procedure Caridad Anglin 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 Work Phone: [facility] Comment on above: wheezing (Primary Dx ); Exposure to influenza; Viral illness; Edema, unspecified type Start: 02-19-2025 End: 02-19-2025 ambulatory [facility] Facility:[facility] Start: 01-19-2025 End: 01-19-2025 [facility] [place] Start: 01-19-2025 End: 01-19-2025 Patient encounter procedure Hal Holliday MA [facility] [place] Comment on above: Population Health Na vigation Outreach ( [facility]) Start: 01-18-2025 End: 01-19-2025 ambulatory Anju Pearce MD Work Phone: [facility] [place] Comment on above: Plavix Start: 01-16-2025 End: 01-16-2025 ambulatory [facility] Facility:[facility] Start: 01-16-2025 End: 01-16-2025 Office outpatient visit [...] Anju Pearce MD Work Phone: [facility] [place] Comment on above: Med Change Request Start: 01-05-2025 End: 01-05-2025 Emergency department patient visit Dr. Igor Wells DO -Emergency Department Work Phone: Start: 12-25-2024 End: 01-06-2025 ambulatory Anju Pearce MD Work Phone: [facility] [place] Comment on above: Formulary Changes fo r Insulin - here we go again Start: 11-11-2024 End: 11-19-2024 ambulatory Anju Pearce MD Work Phone: [facility] [place] Comment on above: Handicap Placard Start: 10-23-2024 ambulatory Anju Pearce Facilit y:[facility] Start: 10-23-2024 End: 10-23-2024 ambulatory Anju Pearce Facility:[facility] Start: 09-22-2024 End: 09-22-2024 ambulatory Anju Pearce Facility:[facility] Start: 09-17-2024 End: 09-18-2024 ambulatory Anju Pearce MD Work Phone: [facility] [place] Comment on above: NT Pro BNP Start: 09-12-2024 End: 09-12-2024 Office outpatient visit 25 minutes Ishmael Davis APRN.TRANSCRIPT EVALUATOR Work Phone: [facility] [place] Comment on above: Type 2 diabetes britni [...] Start: 09-12-2024 End: 09-12-2024 ambulatory ANJU PEARCE Facility:[facility] Start: 08-07-2024 End: 08-07-2024 Refill Anju Pearce MD Work Phone: [facility] [place] Comment on above: Refill Request Start: 06-20-2024 End: 06-21-2024 Telephone encounter Anju Pearce MD Work Phone: [facility] [place] Comment on above: Medication Problem Start: 06-19-2024 Telephone encounter Anju constantino MD Work Phone: [facility] [place] Comment on above: Medication Problem Start: 05-12-2024 End: 05-12-2024 Office outpatient visit 25 minutes Ishmael Davis APRN.TRANSCRIPT EVALUATOR Work Phone: [facility] [place] Comment on above: Screening for diabet ic retinopathy (Primary Dx); PMB (postmenopausal bleeding); Idiopathic gout of multiple sites, unspecified chronicity; Hyperuricemia; 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); Hypertension goal BP (blood pressure) < 150/90; Type 2 diabetes mellitus with stage 3b chronic kidney disease, with long-term current use of insulin ([facility]); Pure hypercholesterolemia; History of CVA (cerebrovascular accident); S/P CABG x 4; Stage 3b chronic kidney disease (HCC); Excessive cerumen in both ear canals Start: 01-16-2024 Refill Iesha Waddell 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 Work Phone: [facility] [place] Comment on above: Med Change Request Start: 01-14-2024 Refill Anju rebolledo MD Work Phone: [facility] [place] Comment on above: Refill Request (SEE RX NOTES) pharmacy asking for new meter and strips rx Start: 01-11-2024 End: 01-11-2024 Office outpatient visit 25 minutes Anju Pearce MD Work Phone: [facility] [place] Comment on above: Type 2 diabetes britni [...] of medication Start: 12-26-2023 End: 12-26-2023 ambulatory Galilea Hardy [facility] Work Phone: [facility] Comment on above: Congestive heart rosalva lure, unspecified HF chronicity, unspecified heart failure type (HCC) (Primary Dx) Start: 12-26-2023 End: 12-26-2023 Telemedicine consultation with patient Galilea Hardy [facility] Work Phone: [facility] Start: 12-12-2023 Telephone encounter Galilea zhao [facility] Work Phone: [facility] [place] Comment on above: Medication Problem Start: 12-06-2023 Refill Iesha Waddell APRN.COLLAR SEPARATOR Work Phone: [facility] [place] Comment on above: Refill Request Start: 10-01-2023 Telephone encounter Anju constantino MD Work Phone: [facility] [place] Comment on above: Permission to rece e pt's health information Patient Question Start: 09-20-2023 End: 09-20-2023 Office outpatient visit 25 minutes Ishmael Davis APRN.CNS Work Phone: [facility] [place] Comment on above: Type 2 diabetes britni itus with stage 3b chronic kidney disease, with long-term current use of insulin (HCC) (Primary Dx); Chronic renal disease, stage IV (HCC); Hypertension goal BP (blood pressure) < 150/90; Macroalbuminuric diabetic nephropathy (HCC); Congestive heart failure, unspecified HF chronicity, unspecified heart failure type (HCC) Start: 09-11-2023 Refill Anju rebolledo MD Work Phone: [facility] [place] Comment on above: Med Change Request Start: 09-08-2023 Refill Iesha Waddell APRN.COLLAR SEPARATOR Work Phone: [facility] [place] Comment on above: Med Change Request Start: 09-05-2023 End: 09-05-2023 Patient encounter procedure Iesha Waddell APRN.COLLAR SEPARATOR Work Phone: [facility] [place] Comment on above: Hypertension goal BP (blood pressure) < 150/90 (Primary Dx); Type 2 diabetes mellitus with stage 3b chronic kidney disease, with long-term current use of insulin (HCC); Hypertensive kidney disease with stage 3b chronic kidney disease (HCC) Start: 08-31-2023 Telephone encounter Anju constantino MD Work Phone: [facility] [place] Comment on above: Results Start: 08-23-2023 End: 08-23-2023 Office outpatient visit 25 minutes Ishmael Davis APRN.TRANSCRIPT EVALUATOR Work Phone: [facility] [place] Comment on above: Encounter for immuni zation (Primary Dx) Start: 08-14-2023 End: 08-14-2023 Office outpatient visit 25 minutes Anju Pearce MD Work Phone: [facility] [place] Comment on above: Type 2 diabetes britni [...] 07-21-2023 End: 07-21-2023 Patient encounter procedure Clement Cortes APRN.COLLAR SEPARATOR Work Phone: [facility] Comment on above: URI, acute (Primary Dx) Start: 07-20-2023 Telephone encounter Anju constantino MD Work Phone: [facility] [place] Comment on above: Medication Problem Start: 07-02-2023 Refill Anju rebolledo MD Work Phone: [facility] [place] Comment on above: Refill Request Start: 06-01-2023 Refill Anju rebolledo MD Work Phone: [facility] [place] Comment on above: Refill Request Start: 04-25-2023 Refill Anju rebolledo MD Work Phone: [facility] [place] Comment on above: Refill Request Start: 03-14-2023 Refill Anju rebolledo MD Work Phone: [facility] [place] Comment on above: Refill Request Start: 02-26-2023 Refill Anju rebolledo MD Work Phone: [facility] [place] Comment on above: Refill Request Start: 01-22-[address] [facility] Start: 01-09-2023 End: 01-09-2023 Office [...] Phone: [facility] [place] Comment on above: Home Health PT Start: 01-01-2023 Telephone encounter Anju constantino MD Work Phone: [facility] [place] Comment on above: Order for Home Healt h Start: 01-01-2023 End: 02-27-2023 Patient encounter procedure Iesha Waddell APRN.COLLAR SEPARATOR Work Phone: [facility] [place] Comment on above: Closed fracture of l eft shoulder with routine healing, subsequent encounter (Primary Dx); Mixed hyperlipidemia; Obesity, Class I, BMI 30-34.9; Type 2 diabetes mellitus with stage 3b chronic kidney disease, with long-term current use of insulin ([facility]) Start: 12-25-2022 Refill Anju rebolledo MD Work Phone: [facility] [place] Comment on above: Refill Request Start: 10-04-2022 End: 10-04-[address] Anju Pearce Work Phone: [facility] Start: 10-03-2022 End: 10-03-2022 Emergency department patient visit Dr. Anju Pearce Work Phone: [facility]-Emergency Department Start: 08-19-2022 Refill Anju rebolledo MD Work Phone: [facility] [place] Comment on above: Refill Request Start: 07-24-2022 End: 07-24-[address] Anju Pearce Work Phone: [facility] Work Phone: Start: 07-24-2022 End: 07-24-[address] Anju Pearce Work Phone: [facility] Start: 07-13-2022 End: 07-13-[address] Anju Pearce Work Phone: [facility] Work Phone: Start: 07-13-2022 End: 07-13-[address] Anju Pearce Work Phone: [facility]-Laboratory, Specimen Start: 07-13-2022 End: 07-13-[address] Anju Pearce Work Phone: [facility] [place] Start: 07-04-2022 End: 07-04-2022 ambulatory [facility] Work Phone: Start: 07-04-2022 End: 07-04-2022 Patient encounter procedure [facility], [facility] Start: 06-28-2022 Telephone encounter Anju constantino MD Work Phone: [facility] [place] Comment on above: Fax urine culture an d last offive visit notes Start: 06-28-2022 End: 06-28-2022 Patient encounter procedure [facility]-Laboratory, Specimen Start: 06-26-2022 Telephone encounter Hal Bassgema Horner APRN.COLLAR SEPARATOR Work Phone: [place] [facility] Comment on above: Results, Lab Start: 06-25-2022 End: 06-25-2022 Office outpatient visit 25 minutes Patsy Guardado 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 Work Phone: [place] [facility] Comment on above: Urinary frequency (P rimary Dx); Acute lower UTI Start: 02-06-2022 Refill Anju rebolledo MD Work Phone: [facility] [place] Comment on above: Refill Request Procedures Date Procedure Procedure Detail Performing Clinician Start: 06-20-[address] Anju Pearce MD Work Phone: Start: 06-18-2025 Measurement of occul t blood in stool specimen using immunoassay Dr. Anju Pearce MD Work Phone: Start: 06-18-2025 Chloride measurement, urine Dr. Anju Pearce MD Work Phone: Start: 06-16-2025 Plain chest X-ray Dr. Nohemi Pearce MD Work Phone: Start: 06-15-2025 Complete ultrasound of kidneys and bladder Dr. Anju Pearce MD Work Phone: Start: 06-15-2025 Serum inorganic phos phate measurement Dr. Anju Pearce MD Work Phone: Start: 06-15-2025 Total iron binding c apacity measurement Dr. Anju Pearce MD Work Phone: Start: 06-14-2025 Urnls dip stick/tabl et reagent auto microscopy Dr. Anju Pearce MD Work Phone: Start: 06-14-2025 X-ray of chest, PA a nd lateral views Dr. Anju Pearce MD Work Phone: Start: 06-14-[address] Anju Pearce MD Work Phone: Start: 06-02-2025 Urnls dip stick/tabl et rgnt auto w/o microscopy Clement Byron 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 Work Phone: Start: 05-14-2025 Adult depression scr eening assessment Ishmaelgema aDvis PARTY BUS DRIVER.TRANSCRIPT EVALUATOR Work Phone: Start: 02-19-2025 Radiologic exam ches t 2 views Caridad Anglin 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 Work Phone: Start: 01-05-2025 SARS-CoV-2, Influenz a [...] above: Performed By: #### T ROP #### [place] [id number] History of coronary artery bypass grafting History of coronary artery bypass graft Comment on above: GHOSH-LAD, GHOSH- diag onal, SVG-OM, SVG-RCA 01/09/20 History of coronary artery bypass grafting S/P CABG x 4 Anju Pearce MD Work Phone: History of coronary artery bypass grafting S/P CABG x 4 Ishmael Ryan SWARTZTRANSCRIPT EVALUATOR Work Phone: History of coronary artery bypass grafting S/P CABG x 4 Anju Pearce MD Work Phone: Urine culture Dr. Anju lloyd Work Phone: Plan of Treatment Date Care Activity Detail Author Start: 06-16-2032 Urine microalbumin profile [facility] Start: 05-14-2026 Anxiety Screening Anxiety Screening [facility] Start: 05-14-2026 Depression Screening Depression Screening [facility] Start: 05-14-2026 Medicare Annual Wellness Visit Medicare Annual Wellness Visit [facility] Start: 05-13-2026 Hepatitis B surface antibody level LDL Cholesterol [facility] Start: 01-16-2026 Diabetic foot examination Diabetic Foot Exam [facility] Start: 11-13-2025 Hemoglobin A1c measurement HbA1C [facility] Start: 09-12-2025 Covid-19 Vaccine ( season) Covid-19 Vaccine () [facility] Comment on above: Postponed from 07/06/2024 (Declined at t his time) Start: 08-21-2025 End: 08-21-2025 Patient encounter procedure 08/21/2025 3:20 PM EDT Office Visit [facility] [place] [address] [place] [address] Anju Pearce MD [address] [place] [address] 3 month f/u [facility] [place] Comment on above: 3 month f/u Start: 08-14-2025 End: 11-13-2025 Basic metabolic 2000 panel - Serum or Plasma BASIC METABOLIC PANEL Lab Routine Type 2 diabetes mellitus with stage 3b chronic kidney disease, with long-term current use of insulin (HCC) Chronic renal disease, stage IV (HCC) Expected: 08/14/2025 (Approximate), Expires: 11/13/2025 [facility] Work Phone: Comment on above: Expected: 08/14/2025 (Approximate), Expi res: 11/13/2025 Start: 08-14-2025 End: 11-13-2025 CBC W Auto Differential panel - Blood COMPLETE BLOOD COUNT AND DIFFERENTIAL Lab Routine Mild anemia Expected: 08/14/2025 (Approximate), Expires: 11/13/2025 [facility] Comment on above: Expected: 08/14/2025 (Approximate), Expi res: 11/13/2025 Start: 07-06-2025 Influenza vaccination Influenza Vaccine (#1) [facility] Start: 06-20-2025 Patient discharge [facility] Start: 06-20-2025 Oxygen therapy [facility] Start: 06-19-2025 Application of intermittent pneumatic compression device [facility] Start: 06-18-2025 Referral to grain broker and market operator [facility] Start: 06-15-2025 [facility] Start: 06-14-2025 End: 06-15-2025 [facility] Start: 06-14-2025 Following clinical pathway protocol [facility] Start: 06-14-2025 Ambulation without limitation [facility] Start: 06-14-2025 Assessment of risk of venous thromboembolism [facility] Start: 06-14-[address] [facility] Start: 06-14-2025 Inhalation therapy procedure [facility] Start: 06-14-2025 Insertion of catheter into peripheral vein [facility] Start: 06-14-2025 Measuring intake and output [facility] Start: 06-14-2025 Notification of physician [facility] Start: 06-14-2025 Providing care according to standard [facility] Start: 06-14-2025 Referral to service [facility] Start: 06-14-2025 Verification routine [facility] Start: 06-14-2025 Admission procedure [facility] Start: 06-14-2025 Hospital admission, emergency, from emergency room, medical nature [facility] Start: 05-14-2025 End: 05-14-2025 Patient encounter procedure [facility] [place] Comment on above: 4 month f/u Start: 05-12-2025 Anxiety Screening Anxiety Screening [facility] Start: 05-12-2025 Depression Screening Depression Screening [facility] Start: 05-05-2025 End: 08-04-2025 25-hydroxyvitamin D3 [Mass/volume] in Serum or Plasma VITAMIN D 25 HYDROXY Lab Routine Vitamin D deficiency Expected: 05/05/2025 (Approximate), Expires: 08/04/2025 [facility] Comment on above: Expected: 05/05/2025 (Approximate), Expi res: 08/04/2025 Start: 05-05-2025 End: 08-04-2025 CBC panel - Blood by Automated count COMPLETE BLOOD COUNT Lab Routine Type 2 diabetes mellitus with stage 3b chronic kidney disease, with long-term current use of insulin ([facility]) Hypertension goal BP (blood pressure) < 150/90 Expected: 05/05/2025 (Approximate), Expires: 08/04/2025 [facility] Comment on above: Expected: 05/05/2025 (Approximate), Expi res: 08/04/2025 Start: 05-05-2025 End: 08-04-2025 Comprehensive metabolic 2000 panel - Serum or Plasma COMPREHENSIVE METABOLIC PANEL Lab Routine Type 2 diabetes mellitus with stage 3b chronic kidney disease, with long-term current use of insulin (HCC) Hypertension goal BP (blood pressure) < 150/90 Expected: 05/05/2025 (Approximate), Expires: 08/04/2025 [facility] Comment on above: Expected: 05/05/2025 (Approximate), Expi res: 08/04/2025 Start: 05-05-2025 End: 08-04-2025 Hemoglobin A1c in Blood HEMOGLOBIN A1C Lab Routine Type 2 diabetes mellitus with stage 3b chronic kidney disease, with long-term current use of insulin (HCC) Expected: 05/05/2025 (Approximate), Expires: 08/04/2025 [facility] Work Phone: Comment on above: Expected: 05/05/2025 (Approximate), Expi res: 08/04/2025 Start: 05-05-2025 End: 08-04-2025 Lipid 1996 panel - Serum or Plasma LIPID PANEL BASIC Lab Routine Pure hypercholesterolemia Expected: 05/05/2025 (Approximate), Expires: 08/04/2025 [facility] Comment on above: Expected: 05/05/2025 (Approximate), Expi res: 08/04/2025 Start: 05-05-2025 End: 08-04-2025 Microalbumin/Creatinine [Mass Ratio] in Urine ALBUMIN/CREATININE RATIO, URINE Lab Routine Type 2 diabetes mellitus with stage 3b chronic kidney disease, 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) Expected: 05/05/2025 (Approximate), Expires: 08/04/2025 [facility] Comment on above: Expected: 05/05/2025 (Approximate), Expi res: 08/04/2025 Start: 05-05-2025 End: 08-04-2025 Urate [Mass/volume] in Serum or Plasma URIC ACID Lab Routine Hyperuricemia Expected: 05/05/2025 (Approximate), Expires: 08/04/2025 [facility] Comment on above: Expected: 05/05/2025 (Approximate), Expi res: 08/04/2025 Start: 03-17-2025 Glaucoma screening Dilated Retinal Exam [facility] Start: 03-12-2025 Hemoglobin A1c measurement HbA1C [facility] Start: 02-26-2025 End: 03-21-2026 XR Chest PA and Lateral XR CHEST 2V FRONTAL/LAT Radiology STAT Pleural effusion Expected: 02/26/2025 (Approximate), Expires: 03/21/2026 [facility] Work Phone: Comment on above: Expected: 02/26/2025 (Approximate), Expi res: 03/21/2026 Start: 01-16-2025 End: 01-16-2025 Patient encounter procedure 01/16/2025 1:00 PM EDT Office Visit [facility] [place] [address] [place] [address] Anju Pearce MD [address] [place] [address] 1 yr f/u [facility] [place] Comment on above: 1 yr f/u Start: 01-10-2025 Covid-19 Vaccine () Covid-19 Vaccine () [facility] Comment on above: Postponed from 07/06/2023 (Declined at t his time) Start: 01-10-2025 Diabetic foot examination Diabetic Foot Exam [facility] Start: 01-09-2025 Hepatitis B surface antibody level LDL Cholesterol [facility] Start: 01-05-2025 [facility] Start: 11-09-2024 Hemoglobin A1c measurement HbA1C [facility] Start: 11-05-2024 Advance Directive Discussion Advance Directive Discussion [facility] Start: 09-12-2024 End: 12-12-2024 Basic metabolic 2000 panel - Serum or Plasma [facility] Work Phone: Comment on above: Expected: 09/12/2024, Expires: Start: 09-12-2024 End: 12-12-2024 Hemoglobin A1c in Blood [facility] Comment on above: Expected: 09/12/2024, Expires: Start: 09-12-2024 End: 12-12-2024 Natriuretic peptide.B prohormone N-Terminal [Mass/volume] in Serum or Plasma [facility] Comment on above: Expected: 09/12/2024, Expires: Start: 09-12-2024 End: 09-12-2024 Patient encounter procedure 09/12/2024 1:00 PM EST Office Visit [facility] [place] [address] [place] [address] Ishmael Davis APRN.TRANSCRIPT EVALUATOR [address] [place] [address] 4 month f/u [facility] [place] Comment on above: 4 month f/u Start: 07-12-2024 Hemoglobin A1c measurement HbA1C [facility] Start: 07-06-2024 Covid-19 Vaccine ( season) Covid-19 Vaccine () [facility] Start: 07-06-2024 Influenza vaccination Influenza Vaccine (#1) [facility] Start: 05-12-2024 End: 08-11-2024 25-hydroxyvitamin D3 [Mass/volume] in Serum or Plasma VITAMIN D 25 HYDROXY Lab Routine Vitamin D deficiency Encounter for long-term current use of medication Expected: 05/12/2024 (Approximate), Expires: 08/11/2024 [facility] Work Phone: Comment on above: Expected: 05/12/2024 (Approximate), Expi res: 08/11/2024 Start: 05-12-2024 End: 08-11-2024 CBC panel - Blood by Automated count CBC Lab Routine Encounter for long-term current use of medication Hypertension goal BP (blood pressure) < 150/90 Expected: 05/12/2024 (Approximate), Expires: 08/11/2024 [facility] Work Phone: Comment on above: Expected: 05/12/2024 [...] < 150/90 Expected: 05/12/2024 (Approximate), Expires: 08/11/2024 [facility] Work Phone: Comment on above: Expected: 05/12/2024 (Approximate), Expi res: 08/11/2024 Start: 05-12-2024 End: 08-11-2024 Hemoglobin A1c in Blood HGB A1C Lab Routine Type 2 diabetes mellitus with stage 3b chronic kidney disease, with long-term current use of insulin (HCC) Encounter for long-term current use of medication Expected: 05/12/2024 (Approximate), Expires: 08/11/2024 [facility] Work Phone: Comment on above: Expected: 05/12/2024 (Approximate), Expi res: 08/11/2024 Start: 02-23-2024 Hemoglobin A1c measurement HbA1C [facility] Start: 02-23-2024 Hemoglobin A1c/Hemoglobin.total in Blood HbA1C [facility] Start: 02-19-2024 Hepb vaccine adult 3 dose schedule for im use HEP B VACCINE, 3-DOSE, AGE 20+ YR (ENGERIX-B, RECOMBIVAX HB) Immunization/Injection Routine Encounter for immunization Expected: 02/19/2024 [facility] Work Phone: Comment on above: Expected: 02/19/2024 Start: 01-07-2024 Hepatitis B surface antibody level LDL CHOLESTEROL [facility] Start: 01-04-2024 End: 03-05-2024 25-hydroxyvitamin D3 [Mass/volume] in Serum or Plasma VITAMIN D 25 HYDROXY Lab Routine Vitamin D deficiency Expected: 01/04/2024 (Approximate), Expires: 03/05/2024 [facility] Work Phone: Comment on above: Expected: 01/04/2024 (Approximate), Expi res: 03/05/2024 Start: 01-04-2024 End: 03-05-2024 ALBUMIN/CREAT RATIO RND UR ALBUMIN/CREAT RATIO RND UR Lab Routine Macroalbuminuric diabetic nephropathy (HCC) Expected: 01/04/2024 (Approximate), Expires: 03/05/2024 [facility] Work Phone: Comment on above: Expected: 01/04/2024 (Approximate), Expi res: 03/05/2024 Start: 01-04-2024 End: 03-05-2024 CBC panel - Blood by Automated count CBC Lab Routine Hypertension goal BP (blood pressure) < 150/90 Expected: 01/04/2024 (Approximate), Expires: 03/05/2024 [facility] Work Phone: Comment on above: Expected: 01/04/2024 (Approximate), Expi res: 03/05/2024 Start: 01-04-2024 End: 03-05-2024 Comprehensive metabolic 2000 panel - Serum or Plasma COMP METABOLIC PANEL Lab Routine Type 2 diabetes mellitus with stage 3b chronic kidney disease, with long-term current use of insulin (HCC) Hypertension goal BP (blood pressure) < 150/90 Expected: 01/04/2024 (Approximate), Expires: 03/05/2024 [facility] Work Phone: Comment on above: Expected: 01/04/2024 (Approximate), Expi res: 03/05/2024 Start: 01-04-2024 End: 03-05-2024 Hemoglobin A1c in Blood HGB A1C Lab Routine Type 2 diabetes mellitus with stage 3b chronic kidney disease, with long-term current use of insulin (HCC) Expected: 01/04/2024 (Approximate), Expires: 03/05/2024 [facility] Work Phone: Comment on above: Expected: 01/04/2024 (Approximate), Expi res: 03/05/2024 Start: 01-04-2024 End: 04-14-2024 Lipid 1996 panel - Serum or Plasma LIPID PANEL BASIC Lab Routine Type 2 diabetes mellitus with stage 3b chronic kidney disease, with long-term current use of insulin (HCC) Expected: 01/04/2024 (Approximate), Expires: 04/14/2024 [facility] Work Phone: Comment on above: Expected: 01/04/2024 (Approximate), Expi res: 04/14/2024 Start: 01-04-2024 End: 03-05-2024 Urate [Mass/volume] in Serum or Plasma URIC ACID BLOOD Lab Routine Hyperuricemia Expected: 01/04/2024 (Approximate), Expires: 03/05/2024 [facility] Work Phone: Comment on above: Expected: 01/04/2024 (Approximate), Expi res: 03/05/2024 Start: 01-04-2024 End: 03-05-2024 Urinalysis complete panel - Urine URINALYSIS, WITH MICROSCOPIC Lab Routine Macroalbuminuric diabetic nephropathy (HCC) Expected: 01/04/2024 (Approximate), Expires: 03/05/2024 [facility] Work Phone: Comment on above: Expected: 01/04/2024 (Approximate), Expi res: 03/05/2024 Start: 11-05-2023 Advance Directive Discussion Advance Directive Discussion [facility] Start: 11-05-2023 Depression Assessment Depression Assessment [facility] Start: 10-02-2023 Glaucoma screening Dilated Retinal Exam [facility] Start: 10-02-2023 Hepatitis C antibody, confirmatory test DILATED RETINAL EXAM [facility] Start: 09-23-2023 Hepb vaccine adult 3 dose schedule for im use HEP B VACCINE, 3-DOSE, AGE 20+ YR (ENGERIX-B, RECOMBIVAX HB) Immunization/Injection Routine Encounter for immunization Expected: 09/23/2023 [facility] Work Phone: Comment on above: Expected: 09/23/2023 Start: 07-21-2023 End: 08-04-2023 COVID & INFLUENZA A/B & RSV NAAT, ROUTINE COVID & INFLUENZA A/B & RSV NAAT, ROUTINE Microbiology Routine URI, acute Expected: 07/21/2023, Expires: 08/04/2023 [facility] Work Phone: Comment on above: Expected: 07/21/2023, Expires: Start: 07-09-2023 Hemoglobin A1c/Hemoglobin.total in Blood HBA1C [facility] Start: 07-06-2023 Covid-19 Vaccine ( season) Covid-19 Vaccine ( season) [facility] Start: 07-06-2023 Influenza vaccination [facility] Start: 05-24-2023 Urine microalbumin profile DTAP,TDAP,TD (1 - Tdap) [facility] Comment on above: Postponed from 05/21/2007 (Declined at t his time) Start: 05-17-2023 Hepatitis B surface antibody level LDL CHOLESTEROL [facility] Start: 05-11-2023 End: 07-11-2023 25-hydroxyvitamin D3 [Mass/volume] in Serum or Plasma VITAMIN D 25 HYDROXY Lab Routine Vitamin D deficiency Expected: 05/11/2023 (Approximate), Expires: 07/11/2023 [facility] Work Phone: Comment on above: Expected: 05/11/2023 (Approximate), Expi res: 07/11/2023 Start: 05-11-2023 End: 07-11-2023 ALBUMIN/CREAT RATIO RND UR ALBUMIN/CREAT RATIO RND UR Lab Routine Type 2 diabetes mellitus with stage 3b chronic kidney disease, with long-term current use of insulin (HCC) Positive for macroalbuminuria Expected: 05/11/2023 (Approximate), Expires: 07/11/2023 [facility] Work Phone: Comment on above: Expected: 05/11/2023 (Approximate), Expi res: 07/11/2023 Start: 05-11-2023 End: 07-11-2023 Basic metabolic 2000 panel - Serum or Plasma BASIC METABOLIC PNL Lab Routine Type 2 diabetes mellitus with stage 3b chronic kidney disease, with long-term current use of insulin (HCC) Stage 3b chronic kidney disease (HCC) Expected: 05/11/2023 (Approximate), Expires: 07/11/2023 [facility] Work Phone: Comment on above: Expected: 05/11/2023 (Approximate), Expi res: 07/11/2023 Start: 01-07-2023 COVID-19 VACCINE (5 - Moderna series) COVID-19 VACCINE (5 - Moderna series) [facility] Start: 11-17-2022 Hemoglobin A1c/Hemoglobin.total in Blood HBA1C [facility] Start: 11-05-2022 ADVANCE DIRECTIVE DISCUSSION ADVANCE DIRECTIVE DISCUSSION [facility] Start: 11-05-2022 DEPRESSION ASSESSMENT DEPRESSION ASSESSMENT [facility] Start: 10-21-2022 3 comp foot exam completed DIABETIC FOOT EXAM [facility] Start: 10-21-2022 Diabetic foot examination Diabetic Foot Exam [facility] Start: 10-05-2022 Patient referral [facility] Work Phone: Start: 09-27-2022 Hepatitis C antibody, confirmatory test DILATED RETINAL EXAM [facility] Start: 09-24-2022 COVID-19 VACCINE (4 - Booster for Moderna series) COVID-19 VACCINE (4 - Booster for Moderna series) [facility] Comment on above: Postponed from 01/20/2022 (Declined at t his time) Postponed from 11/17 (Declined at this time) Start: 07-06-2022 Influenza vaccination INFLUENZA (#1) [facility] Start: 03-15-2022 Hemoglobin A1c/Hemoglobin.total in Blood HBA1C [facility] Start: 01-01-2022 Hepatitis B surface antibody level LDL CHOLESTEROL [facility] Start: 11-17-2021 COVID-19 VACCINE (4 - Booster for Moderna series) COVID-19 VACCINE (4 - Booster for Moderna series) [facility] Start: 11-05-2021 ADVANCE DIRECTIVE DISCUSSION ADVANCE DIRECTIVE DISCUSSION [facility] Start: 11-05-2021 DEPRESSION ASSESSMENT DEPRESSION ASSESSMENT [facility] Start: 05-03-2020 Medicare Annual Wellness Visit Medicare Annual Wellness Visit [facility] Start: 05-21-2007 Urine microalbumin profile DTAP,TDAP,TD (1 - Tdap) [facility] Start: 1997 Hepatitis B Vaccine (1 of 3 - Risk 3-dose series) Hepatitis B Vaccine (1 of 3 - Risk 3-dose series) [facility] Start: 1997 RSV Vaccine (1 - 1-dose 60+ series) RSV Vaccine (1 - 1-dose 60+ series) [facility] Bacteria identified in Urine by Culture URINE CULTURE Microbiology Routine Urinary frequency Ordered: 06/25/2022 [facility] Work Phone: Comment on above: Ordered: 06/25/2022 Bacteria identified in Urine by Culture BACTERIAL CULTURE, URINE Microbiology Routine Pelvic pain 06/02/2025 10:45 AM EDT [facility] Work Phone: COVID & INFLUENZA A/ B & RSV PCR, ROUTINE COVID & INFLUENZA A/B & RSV PCR, ROUTINE Microbiology Routine wheezing Exposure to influenza Viral illness 02/19/2025 9:35 AM EDT [facility] Work Phone: End: 09-18-2025 Echocardiography ECHO Cardiology Routine Heart failure with reduced ejection fraction (HCC) Hypertension goal BP (blood pressure) < 150/90 S/P CABG x 4 Paroxysmal atrial fibrillation with rapid ventricular response (HCC) 1 Occurrences starting 09/18/2024 until 09/18/2025 [facility] Work Phone: Comment on above: 1 Occurrences starting 09/18/2024 until 09/18/2025 Hepb vaccine adult 3 dose schedule for im use HEP B VACCINE, 3-DOSE, AGE 20+ YR (ENGERIX-B, RECOMBIVAX HB) Immunization/Injection Routine Encounter for immunization 1 Occurrences starting 08/23/2023 [facility] Work Phone: Comment on above: 1 Occurrences starting 08/23/2023 Patient Education [facility] Work Phone: Patient referral [facility] Work Phone: PFIZER-BIONTECH COVI D-19 VACCINE ( SEASON) AGE 12+ YR PFIZER-BIONTECH COVID-19 VACCINE ( SEASON) AGE 12+ YR Immunization/Injection Routine Encounter for immunization 1 Occurrences starting 08/23/2023 [facility] Work Phone: Comment on above: 1 Occurrences starting 08/23/2023 ROUTINE FLU A/B + RSV ROUTINE FL U A/B + RSV Lab Routine URI, acute Ordered: 07/21/2023 [facility] Work Phone: Comment on above: Ordered: 07/21/2023 SARS-CoV-2 (COVID-19 ) RNA [Presence] in Respiratory specimen by MARIS with probe detection COVID NAAT, UPPER RESPIRATORY, ROUTINE Microbiology Routine URI, acute Ordered: 07/21/2023 [facility] Work Phone: Comment on above: Ordered: 07/21/2023 UA DIP, URINE (POC) UA DIP, URIN E (POC) Lab Routine Urinary frequency Ordered: 06/25/2022 [facility] Work Phone: Comment on above: Ordered: 06/25/2022 [facility] Immunizations Immunization Date Immunization Notes Care Provider Lali villalobos 08-13-2024 Seasonal trivalent influenza vaccine, adjuvanted, preservative free [facility].TRANSCRIPT EVALUATOR Work Phone: [facility] 08-13-2024 influenza virus vacc ine, unspecified formulation Hal Holliday MA [facility] 08-31-2023 respiratory syncytia l virus (RSV) vaccine, bivalent (ABRYSVO) Anju Pearce MD Work Phone: [facility] Work Phone: 08-14-2023 influenza (HD-IIV4) vaccine, age 65+ yr, high dose, quadrivalent, PF (FLUZONE HIGH-DOSE) Ishmael Davis APRN.TRANSCRIPT EVALUATOR Work Phone: [facility] 08-14-2023 influenza virus vacc ine, unspecified formulation Ishmael Davis APRN.TRANSCRIPT EVALUATOR Work Phone: [facility] 07-12-2022 influenza (aIIV4) vaccine, age 65+ yr, quadrivalent, PF (FLUAD QUAD) Anju Pearce MD Work Phone: [facility] 07-12-2022 influenza, injectabl e, quadrivalent, contains preservative Anju Pearce MD Work Phone: [facility] Work Phone: 07-12-2022 influenza virus vacc ine, unspecified formulation Clement Cortes APRN.COLLAR SEPARATOR Work Phone: [facility] 06-16-2022 tetanus toxoid, redu sadiq diphtheria toxoid, and acellular pertussis vaccine, adsorbed Anju Pearce MD Work Phone: [facility] 04-06-2022 pneumococcal polysaccharide vaccine, 23 valent Anju Pearce MD Work Phone: [facility] 08-17-2021 influenza (HD-IIV4) vaccine, age 65+ yr, high dose, quadrivalent, PF (FLUZONE HIGH-DOSE) Anju Pearce MD Work Phone: [facility] 12-24-2020 COVID-19 vaccine, fu ll dose (MODERNA) Anju Pearce MD Work Phone: [facility] 11-26-2020 COVID-19 vaccine, fu ll dose (MODERNA) Anju Pearce MD Work Phone: [facility] 09-04-2020 zoster vaccine recombinant Anju Pearce MD Work Phone: [facility] 07-30-2020 influenza, high dose seasonal, preservative-free Anju Pearce MD Work Phone: [facility] 04-30-2020 zoster vaccine recombinant Anju Pearce MD Work Phone: [facility] 09-02-2019 influenza, high dose seasonal, preservative-free Anju Pearce MD Work Phone: [facility] 08-05-2019 Influenza virus vaccine W [facility] 07-19-2018 influenza, high dose seasonal, preservative-free Anju Pearce MD Work Phone: [facility] Work Phone: 08-13-2017 influenza, high dose seasonal, preservative-free Anju Pearce MD Work Phone: [facility] 08-23-2016 influenza, high dose seasonal, preservative-free Anju Pearce MD Work Phone: [facility] Work Phone: 10-23-2015 pneumococcal conjuga te vaccine, 13 valent Anju Pearce MD Work Phone: [facility] 08-21-2013 influenza virus vacc ine, unspecified formulation Anju Pearce MD Work Phone: [facility] 07-25-2012 influenza virus vacc ine, unspecified formulation Anju Pearce MD Work Phone: [facility] Work Phone: 08-07-2011 influenza virus vacc ine, unspecified formulation Anju Pearce MD Work Phone: [facility] 01-06-2011 zoster vaccine, live Anju ervin MD Work Phone: [facility] Work Phone: 08-10-2010 influenza virus vacc ine, unspecified formulation Anju Pearce MD Work Phone: [facility] Work Phone: 10-25-2009 novel influenza-H1N1 -09, all formulations Anju Pearce MD Work Phone: [facility] Work Phone: 08-23-2009 influenza virus vacc ine, unspecified formulation Anju Pearce MD Work Phone: [facility] Work Phone: 09-09-2008 influenza virus vacc ine, unspecified formulation Anju Pearce MD Work Phone: [facility] 09-04-2007 influenza virus vacc ine, unspecified formulation Anju Pearce MD Work Phone: [facility] Work Phone: 05-20-2007 tetanus and diphther ia toxoids, adsorbed, preservative free, for adult use (2 Lf of tetanus toxoid and 2 Lf of diphtheria toxoid) Anju Pearce MD Work Phone: [facility] 09-13-2006 influenza virus vacc ine, unspecified formulation Anju Pearce MD Work Phone: [facility] Work Phone: 08-31-2005 influenza virus vacc ine, unspecified formulation Anju Pearce MD Work Phone: [facility] Work Phone: 08-31-2005 pneumococcal polysaccharide vaccine, 23 valent Anju Pearce MD Work Phone: [facility] Work Phone: 08-31-2005 Pneumococcal Vaccine [facility] Work Phone: 08-31-2005 pneumococcal vaccine , unspecified formulation Dr. Anju Pearce Work Phone: [facility] Payers Date Payer Category Payer Self-pay [id number] 2020 Medicare MEDICARE MEDICAR E A AND B [id number] 2020-Present [phone] [address] [address] [place] [address] Medicare [id number] 2003 Private Health Insurance [employer] [id number] 2003-Present [phone] [address] [place] [address] Indemnity [id number] 2003 Private Health Insurance [id number] 2003 Private Health Insurance [id number] 2002 Medicare [id number] 2002 Medicare [id number] Unknown [id number] Unknown [id number] Unknown [id number] Unknown [id number] Unknown [id number] Unknown [id number] Unknown [id number] Unknown [id number] Unknown [id number] Unknown [id number] Unknown [id number] Unknown [id number] Unknown [id number] Unknown [id number] Unknown [id number] Unknown [id number] Social History Date Type Detail Facility Start: 08-07-2011 Tobacco smoking status NHIS Never smoked tobacco [facility] Start: 01-05-2022 End: 05-14-2025 Alcohol intake Current non-drinker of alcohol (finding) [facility] Start: 05-02-2020 End: 09-14-2021 History SDOH Alcohol Frequency 1 [facility] Start: 08-30-2020 History SDOH Social Connections Phone 4 [facility] Start: 05-02-2020 End: 08-30-2020 History SDOH Social Connections Get Together 3 [facility] Start: 08-30-2020 End: 09-14-2021 History SDOH Stress 2 [facility] Start: 05-02-2020 History SDOH Financial 5 [facility] Start: 08-29-2020 Education 21 [facility] Start: 1935 Sex Assigned At Not on file [facility] Start: 01-09-2022 End: 06-25-2022 Exposure to SARS-CoV-2 (event) Not sure [facility] Start: 08-07-2011 Tobacco use and exposure Smokeless tobacco non-user [facility] Start: 11-17-2021 End: 10-04-2022 Tobacco smoking status NHIS Unknown if ever smoked [facility] Start: 06-28-2022 None [facility] Start: 01-17-2020 Spouse/ Significant Other [facility] Start: 01-17-2020 Non-smoker [facility] Start: 1935 Sex Assigned At Female [facility] Start: 01-09-2023 End: 09-12-2024 History of Social function [facility] Work Phone: Start: 01-09-2023 End: 09-12-2024 Tobacco use panel [facility] Work Phone: Start: 10-06-2012 Adult Depression Screening Assessment 3 [facility] Work Phone: How often to you hav e a drink containing alcohol? Never [facility] Do you feel stress - tense, restless, nervous, or anxious, or unable to sleep at night because your mind is troubled all the time - these days [OSQ] Only a little [facility] (I/We) worried wheeleazar er (my/our) food would run out before (I/we) got money to buy more. Never true [facility] In the past 12 month s, was there a time when you were not able to pay the mortgage or rent on time? No [facility] Do you belong to any clubs or organizations such as yarsani groups, unions, fraternal or athletic groups, or school groups? Yes [facility] Are you now , , , , never or living with a partner? [facility] How hard is it for y ou to pay for the very basics like food, housing, medical care, and heating Not very hard [facility] Start: 01-05-2025 End: 06-14-2025 Tobacco smoking status NHIS Ex-smoker (finding) [facility] Medical Equipment Procedure Code Equipment Code Equipment Original Text Equipment Identifier Dates [id number], [id number], [id number], [id number] Start: 01-02-2022 End: 03-18-2025 Comment on above: Test blood sugar(s) 3 times daily. Dx: Type 2 DM - Uncontrolled E11.65 Insulin: Yes Use one needle for e ach dose. 1x/day. testing 3 times adair y DX E11.65 Insulin Yes testing glucose 3 ti mes daily Insulin Yes Test blood sugar(s) 3 times daily. Dx: Type 2 DM - Controlled E11.65 Insulin: Yes Goals Date Patient Goal Desired Activity /State Functional Status Date Assessment Result Facility 06-20-2025 Functional status Chair;Bathroom Privileg e [facility] Work Phone: 05-14-2025 Total score [AUDIT-C] 0 05/14/20 25 1:38 PM EDT Flores Bob MA [facility] 01-17-2020 Are you deaf, or do you have serious difficulty hearing No 01/17/2020 9:17 AM NICKIT Laurel Doyle, RITA No [facility] 01-17-2020 Are you blind, or do you have serious difficulty seeing, even when wearing glasses No 01/17/2020 9:17 AM Laurel Rizzo, RITA No [facility] 01-17-2020 Do you have serious difficulty walking or climbing stairs Yes 01/17/2020 9:17 AM Laurel Rizzo, RITA Yes [facility] 01-17-2020 Do you have difficul ty dressing or bathing Yes 01/17/2020 9:17 AM Laurel Rizzo, RITA Yes [facility] 01-17-2020 Because of a physica l, mental, or emotional condition, do you have difficulty doing errands alone such as visiting a physician's office or shopping Yes 01/17/2020 9:17 AM Laurel Rizzo, RITA Yes [facility] Mental Status Date Assessment Result Facility 06-20-2025 Cognitive function Voice/Name [facility] Work Phone: 06-14-2025 Cognitive function Level Of Cons ciousness Awake;Alert;Appropriate;Abbie Chowdary [facility] Work Phone: 01-05-2025 Cognitive function Level Of Cons ciousness Awake;Alert;Appropriate;Abbie Chowdary [facility] Work Phone: 01-17-2020 Because of a physica l, mental, or emotional condition, do you have serious difficulty concentrating, remembering, or making decisions No 01/17/2020 9:17 AM Laurel Rizzo, RITA No [facility] Clinical Notes 01-03-2020 to 07-16-2025 Telephone Encounter - Susana Harry LPN - 07/16/2025 1:44 PM EDTTelephone Encounter - Susana Harry LPN - 07/16/2025 1:44 PM EDT Note Date & Type Note Facility 07-16-2025 Telephone encounter Note Form atting of this note might be different from the original. Order faxed to [facility] 07-16-2025 Miscellaneous Notes Formattin g of this note might be different from the original. Order faxed to [facility] Requesting a different walker, send to [facility] documented in this encounter [facility] 07-15-2025 Telephone encounter Note Form atting of this note might be different from the original. Requesting a different walker, send to [facility] 07-03-2025 Telephone encounter Note Form atting of this note might be different from the original. Faxed to [facility] with office note Graciela Bernardo MA [facility] 07-03-2025 Miscellaneous Notes Formattin g of this note might be different from the original. Faxed to [facility] with office note Graciela Bernardo MA I placed an order for rollator. She may need an office note sent to [facility] as well. documented in this encounter [facility] 07-03-2025 Telephone encounter Note Form atting of this note might be different from the original. I placed an order for rollator. She may need an office note sent to [facility] as well. [facility] 07-03-2025 Telephone encounter Note Form atting of this note might be different from the original. Duplicate message see other susan Bernardo MA [facility] 07-03-2025 Miscellaneous Notes Formattin g of this note might be different from the original. Duplicate message see other susan Bernardo MA documented in this encounter [facility] 06-20-2025 Discharge summary Note Date/Time June 20, 2025 1:28pm [facility] Medical Records Department [address] [place] [id number] Discharge Summary 06/20/25 1320 MR#: [id number] Acct: [id number] Name: CICI WOODWARD Rep #:[id number] : 1935 89 From: Jack simpson MD PCP: Dr. Anju Pearce MD Status:AD M IN [id number] Providers Date of Admission: 06/14/25 Primary Care Physician: Dr. Anju Pearce MD Consultations 06/18/25 09:39 Consult: Nephrology Routine Consulting Provider: Ta Phillips Reason for Consult: SHA EMERGENT Consult: No MD Notified: Yes Date Notified: 06/18/25 Time Notified: 09:53 Method of Notification: Answering Service Reason For Visit: ACUTE KIDNEY INJURY Diagnosis Discharge Diagnosis (1) SHA (acute kidney injury): Status: Acute Code(s): N17.9 - Acute kidney failure, unspecified Medications at Discharge Home Medications allopurinol 100 mg tablet 100 mg PO DAILYCM gout 04/28/14 aspirin 81 mg chewable tablet 81 mg PO DAILY heart 01/17/20 calcium carbonate-vitamin D3 600 mg-125 unit tablet 1 ea PO DAILY bones 01/17/20 metoprolol succinate 100 mg tablet,extended release 24 hr 100 mg PO DAILY bp 01/17/20 propylene glycol 0.6 % eye drops (Systane Balance) 1 drp ophthalmic (eye) QHS Dry Eyes 06/28/20 losartan 50 mg tablet 50 mg PO QDAY 09/22/24 amlodipine 10 mg tablet 10 mg PO QDAY 04/30/25 insulin aspart U-100 100 unit/mL (3 mL) subcutaneous pen 7 unit subcut QAC dm 04/30/25 rosuvastatin 5 mg tablet 5 mg PO QDAY 04/30/25 insulin glargine-yfgn 100 unit/mL (3 mL) subcutaneous pen 14 unit subcut QHS 06/14/25 ferrous sulfate 325 mg (65 mg iron) tablet (FeroSul) 325 mg PO DAILY@1200 30 days #30 tabs 06/20/25 furosemide 20 mg tablet (Lasix) 20 mg PO DAILY #30 tabs 06/20/25 pantoprazole 20 mg tablet,delayed release 20 mg PO DAILY 30 days #30 tabs 06/20/25 Hospital Course Operations None Procedures 2-D Echocardiogram Summary of Care Provided Minutes Spent on Discharge: 35 Hospital Course: Per HPI: CICI WOODWARD, is a 89 F who presents generalized weakness. Patient has multiple comorbidities including coronary artery disease status post CABG, chronic kidney disease stage III presented to the emergency department with progressive generalized weakness. Per patient he had recently been treated for acute cystitis has not felt well since. Also did admit to decreased oral intake. Presented to the emergency department as a result found to have worsening kidney function admitted to regular nursing floor as a case of SHA Hospital Course: 1. Acute on chronic diastolic CHF with generalized weakness and hypokalemia/essential HTN/HLD/CAD status post CABG/history of CVA?89-year-old female presented to the hospital issue with generalized weakness. It was thought that she had an SHA because her creatinine was 2.46 on admission with a baseline of around 1.5 however in discussion with nephrology her most recent creatinine levels are around 2-2.2 therefore she did not meet the criteria for an SHA on admission. However because of the initial assumption that she had an SHA she was given IV fluids because she admitted to decreased p.o. intake however she developed significant shortness of breath with pulmonary edema. Echocardiogram demonstrated an EF of 55% with stage II diastolic dysfunction jose PASP of 36 mmHg consistent with acute on chronic diastolic CHF exacerbation. She was started on Lasix and her shortness of breath improved as did her renal function. I did consult nephrology for assistance and they will continue to follow her as an outpatient. She did inquire about going to rehab on discharge however she did not meet therapeutic criteria with PT/OT so she will be discharged home with her daughter. I discussed the plan for discharge with her and she expressed understanding of the risks and benefits of going home and would like to go home today. I did start her on low-dose Lasix 20 mg p.o. dailyso I do recommend outpatient follow-up with her PCP and cardiology. She did have an ambulatory pulse ox which demonstrated room air at rest and 2 L with ambulation of which I also recommend that she wear at night. I have reviewed the oxygen testing, and this patient qualifies for the home equipment and portability. The patient is mobile in the home and the community. 2. Normocytic normochromic anemia?she did have a drop in her hemoglobin in January she was 11.6 and today on the day of discharge she is 8.9, she did have a Hemoccult that came back positive however she was also given fluid therefore some of this component is dilutional. I did do iron studies which demonstrated anemia of chronic disease however given her lack of p.o. intake we will place her on p.o. iron recommending outpatient follow-up. She is also on a PPI and I recommend that she follow-up with gastroenterology as an outpatient as well for evaluation of these Hemoccult stools. 3. 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 Her home medications were continued where appropriate Physical Exam Narrative General: Alert, Oriented x3, Cooperative, No apparent distress HEENT: Atraumatic, PERRLA, EOMI, Normocephalic Oral: Moist Mucosa Neck: Supple, No JVD Lungs: Diminished, Normal air movement, bibasilar crackles improved, No wheeze, No rales Cardiovascular: Regular rate, Regular Rhythm, Normal S1, Normal S2, No murmurs Abdomen: Soft, Non Tender, Non-Distended, No Hepato-splenomegaly Extremities: Trace edema, Capillary Refill Less than 3 Seconds Skin: No rashes, No breakdown Musculoskeletal: No Tenderness to Palpation of Joints or Extremities Neurological: No focal neurological deficits, Motor Exam 5/5 strength throughout, Sensory exam intact to light touch and pain Psych/Mental Status: Normal Affect, Appropriate Weight / BMI Weight Weight: 161 lb 6.054 oz Body Mass Index (BMI) 29.7 ABG / Lab / Microbiology Data 06/20/25 06:16 06/20/25 06:16 Laboratory: Laboratory Results - last 24 hr 06/19/25 16:00: POC Glucose 151 H 06/19/25 21:16: POC Glucose 182 H 06/20/25 06:16: WBC 9.1, RBC 3.05 L, Hgb 8.9 L, Hct 27.4 L, MCV 89.8, MCH 29.2, MCHC 32.5, RDW Std Deviation 46.7 H, RDW Coeff of Hernan 14.4, Plt Count 290, MPV 11.6, Immature Gran % (Auto) 0.300, Neut % (Auto) 68.4, Lymph % (Auto) 22.2, Green % (Auto) 7.4, Eos % (Auto) 1.0, Baso % (Auto) 0.7, Absolute Neuts (auto) 6.3, Absolute Lymphs (auto) 2.03, Nucleated RBC % 0, Sodium 138, Potassium 4.7, Chloride 107, Carbon Dioxide 17.5 L, Anion Gap 14, BUN 57 H, Creatinine 2.26 H, Estim Creat Clear Calc 16.12 L, Est GFR (MDRD) Non-Af 20 L, BUN/Creatinine Ratio25.1 H, Glucose 120 H, Calcium 9.4 06/20/25 11:36: POC Glucose 196 H Microbiology: Microbiology 06/18/25 10:00 Stool Stool Occult Blood (ROSARIO) - Final Occult Blood Positive D/C Instructions Call your doctor if you observe: Fever of 101 or Higher, Shortness of breath, Dizziness, Fainting spells, Swelling in the ankles, Chest pain and Increased palpitations (irregular heartbeat) DC O2, CPAP, BIPAP Needs Home O2 Discharge instructions: No Meaningful Use Info Meaningful Use Meaningful Use Diagnoses (Choose all that apply): None applicable Discharge Plan Admission Admit Date/Time: 06/14/25 11:09 Attending Provider: Jack Mae Primary Care Provider: Anju Pearce Consulting Providers: Ventura Ivy; Ta Phillips Instructions Additional Instructions / Restrictions: You do not require oxygen at rest, I do recommend wearing 2 L with ambulation and at night while you sleep. Discharge Orders/Prescriptions Prescriptions: New pantoprazole 20 mg Tablet,Delayed Release (Dr/Ec) 20 mg PO DAILY 30 Days Qty: 30 0RF ferrous sulfate [FeroSul] 325 mg (65 mg iron) Tablet 325 mg PO DAILY@1200 30 Days Qty: 30 0RF furosemide [Lasix] 20 mg tablet 20 mg PO DAILY Qty: 30 0RF Continued Systane Balance 0.6 % drops 1 drp OPHTHALMIC QHS losartan 50 mg tablet 50 mg PO QDAY rosuvastatin 5 mg tablet 5 mg PO QDAY amlodipine 10 mg tablet 10 mg PO QDAY allopurinol 100 MG tablet 100 mg PO DAILYCM Patient Comments: GOUT metoprolol succinate 100 MG tablet extended release 24 hr 100 mg PO DAILY aspirin 81 MG tablet,chewable 81 mg PO DAILY calcium carbonate-vitamin D3 1 EACH tablet 1 ea PO DAILY insulin aspart U-100 100 unit/mL (3 mL) insulin pen 7 unit subcut QAC Rx Instructions: 8 units AM, 3 units, 6 units dinner insulin glargine-yfgn 100 unit/mL (3 mL) insulin pen 14 unit subcut QHS Referrals / Follow Up: Ta Phillips MD [Med Staff - Consulting] - Within 1 Month Anju Pearce MD [Primary Care Provider] - Within 1 Week Chidi Rao DO [Med Staff - Active Staff] - Within 3 Months (positive hemoccult) Marika George PA [Med Staff - Adv Practice Prof] - Within 1 Month Disposition Disposition (needs filled in before D/C Order can be placed): Home, Self Care Charges/Coding Visit Charges Inpatient E&M: 60290 Disch Hosp >30min 06/20/25 1328 <Electronically signed by Jack Mae MD> Cosigner Signature (if applicable): CC: Dr. Anju Pearce MD; Dr. Jack Mae MD~ Signed [facility] Work Phone: [phone]) 758-322308-16-2025 Discharge summary Author Jack Mae [facility] Note Date/Time June 20, 2025 12 :04pm [facility] Medical Records Department [address] [place] [address] Instructions for Home/Discharge Instructions 06/20/25 1200 MR#: [id number] Acct: [id number] Name: CICI WOODWARD Rep #:[id number] : 1935 89 From: Jack simpson MD PCP: Dr. Anju eParce MD Status:AD M IN Discharge Instructions DC O2, CPAP, BIPAP needs Home O2 Discharge instructions: No Dressing / Incision Discharge Activity: Return to Normal Activity Dressing / Incision Call your doctor if you observe: Fever of 101 or Higher, Shortness of breath, Dizziness, Fainting spells, Swelling in the ankles, Chest pain and Increased palpitations (irregular heartbeat) Follow Up Care Test Results: Test results from this visit will be discussed in further detail at your follow- up appointment, if applicable. Discharge Plan Admission Admit Date/Time: 06/14/25 11:09 Attending Provider: Jack Mae Primary Care Provider: Anju Pearce Consulting Providers: Ventura Ivy; Ta Phillips Discharge Orders/Prescriptions Prescriptions: New pantoprazole 20 mg Tablet,Delayed Release (Dr/Ec) 20 mg PO DAILY 30 Days Qty: 30 0RF ferrous sulfate [FeroSul] 325 mg (65 mg iron) Tablet 325 mg PO DAILY@1200 30 Days Qty: 30 0RF furosemide [Lasix] 20 mg tablet 20 mg PO DAILY Qty: 30 0RF Continued Systane Balance 0.6 % drops 1 drp OPHTHALMIC QHS losartan 50 mg tablet 50 mg PO QDAY rosuvastatin 5 mg tablet 5 mg PO QDAY amlodipine 10 mg tablet 10 mg PO QDAY allopurinol 100 MG tablet 100 mg PO DAILYCM Patient Comments: GOUT metoprolol succinate 100 MG tablet extended release 24 hr 100 mg PO DAILY aspirin 81 MG tablet,chewable 81 mg PO DAILY calcium carbonate-vitamin D3 1 EACH tablet 1 ea PO DAILY insulin aspart U-100 100 unit/mL (3 mL) insulin pen 7 unit subcut [facility] Rx Instructions: 8 units AM, 3 units, 6 units dinner insulin glargine-yfgn 100 unit/mL (3 mL) insulin pen 14 unit subcut [facility] Referrals / Follow Up: Ta Phillips MD [Med Staff - Consulting] - Within 1 Month Anju Pearce MD [Primary Care Provider] - Within 1 Week Chidi Rao DO [Med Staff - Active Staff] - Within 3 Months (positive hemoccult) Marika George PA [Med Staff - Adv Practice Prof] - Within 1 Month Disposition Disposition (needs filled in before D/C Order can be placed): Home, Self Care 06/20/25 1204<Electronically signed by Jack Mae MD>Jack Mae MD CC: Dr. Ventura Ivy MD; Dr. Ta Phillips MD; Dr. Anju Pearce MD ~ Signed [facility] Work Phone: [phone]) 909-722308-16-2025 Discharge summary [facility] Medical Records Department [address] [place] [id number] Discharge Summary 06/20/25 1320 MR#: [id number] Acct: [id number] Name: CICI WOODWARD Rep #:[id number] : 1935 89 From: Jack simpson MD PCP: Dr. Anju Pearce MD Status:AD M IN Location: [place] [address] Providers Date of Admission: 06/14/25 Primary Care Physician: Dr. Anju Pearce MD Consultations 06/18/25 09:39 Consult: Nephrology Routine Consulting Provider: Ta Phillips Reason for Consult: SHA EMERGENT Consult: No MD Notified: Yes Date Notified: 06/18/25 Time Notified: 09:53 Method of Notification: Answering Service Reason For Visit: ACUTE KIDNEY INJURY Diagnosis Discharge Diagnosis (1) SHA (acute kidney injury): Status: Acute Code(s): N17.9 - Acute kidney failure, unspecified Medications at Discharge Home Medications allopurinol 100 mg tablet 100 mg PO DAILYCM gout 04/28/14 aspirin 81 mg chewable tablet 81 mg PO DAILY heart 01/17/20 calcium carbonate-vitamin D3 600 mg-125 unit tablet 1 ea PO DAILY bones 01/17/20 metoprolol succinate 100 mg tablet,extended release 24 hr 100 mg PO DAILY bp 01/17/20 propylene glycol 0.6 % eye drops (Systane Balance) 1 drp ophthalmic (eye) QHS Dry Eyes 06/28/20 losartan 50 mg tablet 50 mg PO QDAY 09/22/24 amlodipine 10 mg tablet 10 mg PO QDAY 04/30/25 insulin aspart U-100 100 unit/mL (3 mL) subcutaneous pen 7 unit subcut QAC dm 04/30/25 rosuvastatin 5 mg tablet 5 mg PO QDAY 04/30/25 insulin glargine-yfgn 100 unit/mL (3 mL) subcutaneous pen 14 unit subcut QHS 06/14/25 ferrous sulfate 325 mg (65 mg iron) tablet (FeroSul) 325 mg PO DAILY@1200 30 days #30 tabs 06/20/25 furosemide 20 mg tablet (Lasix) 20 mg PO DAILY #30 tabs 06/20/25 pantoprazole 20 mg tablet,delayed release 20 mg PO DAILY 30 days #30 tabs 06/20/25 Hospital Course Operations None Procedures 2-D Echocardiogram Summary of Care Provided Minutes Spent on Discharge: 35 Hospital Course: Per HPI: CICI WOODWARD, is a 89 F who presents generalized weakness. Patient has multiple comorbidities including coronary artery disease status post CABG, chronic kidney disease stage III presented to the emergency department with progressive generalized weakness. Per patient he had recently been treated for acute cystitis has not felt well since. Also did admit to decreased oral intake. Presented to the emergency department as a result found to have worsening kidney function admitted to regular nursing floor as a case of SHA Hospital Course: 1. Acute on chronic diastolic CHF with generalized weakness and hypokalemia/essential HTN/HLD/CAD status post CABG/history of CVA?89-year-old female presented to the hospital issue with generalized weakness. It was thought that she had an SHA because her creatinine was 2.46 on admission with a baseline of around 1.5 however in discussion with nephrology her most recent creatinine levels are around 2-2.2 therefore she did not meet the criteria for an SHA on admission. However because of the initial assumption that she had an SHA she was given IV fluids because she admitted to decreased p.o. intake however she developed significant shortness of breath with pulmonary edema. Echocardiogram demonstrated an EF of 55% with stage II diastolic dysfunction jose PASP of 36 mmHg consistent with acuteon chronic diastolic CHF exacerbation. She was started on Lasix and her shortness of breath improved as did her renal function. I did consult nephrology for assistance and they will continue to follow her as an outpatient. She did inquire about going to rehab on discharge however she did not meet therapeutic criteria with PT/OT so she will be discharged home with her daughter. I discussed the plan for discharge with her and she expressed understanding of the risks and benefits of going home andwould like to go home today. I did start her on low-dose Lasix 20 mg p.o. dailyso I do recommend out patient follow-up with her PCP and cardiology. She did have an ambulatory pulse ox which demonstrated room air at rest and 2 L with ambulation of which I also recommend that she wear at night. I havereviewed the oxygen testing, and this patient qualifies for the home equipment and portability. Thepatient is mobile in the home and the community. 2. Normocytic normochromic anemia?she did have a drop in her hemoglobin in January she was 11.6 and today on the day of discharge she is 8.9, she did have a Hemoccult that came back positive however she was also given fluid therefore some of this component is dilutional. I did do iron studies which demonstrated anemia of chronic disease however given her lack of p.o. intake we will place her on p.o. iron recommending outpatient follow-up. She is also on a PPI and I recommend that she follow-up with gastroenterology as an outpatient as well for evaluation of these Hemoccult stools. 3. 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 Her home medications were continued where appropriate Physical Exam Narrative General: Alert, Oriented x3, Cooperative, No apparent distress HEENT: Atraumatic, PERRLA, EOMI, Normocephalic Oral: Moist Mucosa Neck: Supple, No JVD Lungs: Diminished, Normal air movement, bibasilar crackles improved, No wheeze, No rales Cardiovascular: Regular rate, Regular Rhythm, Normal S1, Normal S2, No murmurs Abdomen: Soft, Non Tender, Non-Distended, No Hepato-splenomegaly Extremities: Trace edema, Capillary Refill Less than 3 Seconds Skin: No rashes, No breakdown Musculoskeletal: No Tenderness to Palpation of Joints or Extremities Neurological: No focal neurological deficits, Motor Exam 5/5 strength throughout, Sensory exam intact to light touch and pain Psych/Mental Status: Normal Affect, Appropriate Weight / BMI Weight Weight: 161 lb 6.054 oz Body Mass Index (BMI) 29.7 ABG / Lab / Microbiology Data 06/20/25 06:16 06/20/25 06:16 Laboratory: Laboratory Results - last 24 hr 06/19/25 16:00: POC Glucose 151 H 06/19/25 21:16: POC Glucose 182 H 06/20/25 06:16: WBC 9.1, RBC 3.05 L, Hgb 8.9 L, Hct 27.4 L, MCV 89.8, MCH 29.2, MCHC 32.5, RDW Std Deviation 46.7 H, RDW Coeff of Hernan 14.4, Plt Count 290, MPV 11.6, Immature Gran % (Auto) 0.300, Neut% (Auto) 68.4, Lymph % (Auto) 22.2, Green % (Auto) 7.4, Eos % (Auto) 1.0, Baso % (Auto) 0.7, Absolute Neuts (auto) 6.3, Absolute Lymphs (auto) 2.03, Nucleated RBC % 0, Sodium 138, Potassium 4.7, Chloride 107, Carbon Dioxide 17.5 L, Anion Gap 14, BUN 57 H, Creatinine 2.26 H, Estim Creat Clear Calc 16.12 L, Est GFR (MDRD) Non-Af 20 L, BUN/Creatinine Ratio25.1 H, Glucose 120 H, Calcium 9.4 06/20/25 11:36: POC Glucose 196 H Microbiology: Microbiology 06/18/25 10:00 Stool Stool Occult Blood (ROSARIO) - Final Occult Blood Positive D/C Instructions Call your doctor if you observe: Fever of 101 or Higher, Shortness of breath, Dizziness, Fainting spells, Swelling in the ankles, Chest pain and Increased palpitations (irregular heartbeat) DC O2, CPAP, BIPAP Needs Home O2 Discharge instructions: No Meaningful Use Info Meaningful Use Meaningful Use Diagnoses (Choose all that apply): None applicable Discharge Plan Admission Admit Date/Time: 06/14/25 11:09 Attending Provider: Jack Mae Primary Care Provider: Anju Pearce Consulting Providers: Ventura Ivy; Ta Phillips Instructions Additional Instructions / Restrictions: You do not require oxygen at rest, I do recommend wearing 2 L with ambulation and at night while you sleep. Discharge Orders/Prescriptions Prescriptions: New pantoprazole 20 mg Tablet,Delayed Release (Dr/Ec) 20 mg PO DAILY 30 Days Qty: 30 0RF ferrous sulfate [FeroSul] 325 mg (65 mg iron) Tablet 325 mg PO DAILY@1200 30 Days Qty: 30 0RF furosemide [Lasix] 20 mg tablet 20 mg PO DAILY Qty: 30 0RF Continued Systane Balance 0.6 % drops 1 drp OPHTHALMIC QHS losartan 50 mg tablet 50 mg PO QDAY rosuvastatin 5 mg tablet 5 mg PO QDAY amlodipine 10 mg tablet 10 mg PO QDAY allopurinol 100 MG tablet 100 mg PO DAILYCM Patient Comments: GOUT metoprolol succinate 100 MG tablet extended release 24 hr 100 mg PO DAILY aspirin 81 MG tablet,chewable 81 mg PO DAILY calcium carbonate-vitamin D3 1 EACH tablet 1 ea PO DAILY insulin aspart U-100 100 unit/mL (3 mL) insulin pen 7 unit subcut QAC Rx Instructions: 8 units AM, 3 units, 6 units dinner insulin glargine-yfgn 100 unit/mL (3 mL) insulin pen 14 unit subcut QHS Referrals / Follow Up: Ta Phillips MD [Med Staff - Consulting] - Within 1 Month Anju Pearce MD [Primary Care Provider] - Within 1 Week Chidi Rao DO [Med Staff - Active Staff] - Within 3 Months (positive hemoccult) Marika George PA [Med Staff - Adv Practice Prof] - Within 1 Month Disposition Disposition (needs filled in before D/C Order can be placed): Home, Self Care Charges/Coding Visit Charges Inpatient E&M: 25628 Disch Hosp >30min 06/20/25 7822 Cosigner Signature (if applicable): CC: Dr. Anju Pearce MD; Dr. Jack Mae MD~ Signed [facility]08-16-2025 [facility] Medical Records Department [address] [place] [address] Discharge Summary 06/20/25 1320 MR#: [id number] Acct: [id number] Name: CICI WOODWARD Rep #: [id number] : 1935 89 From: Jack Mae MD PCP: Dr. Anju Pearce MD Status:ADM IN Location: [place] [address] Providers Date of Admission: 06/14/25 Primary Care Physician: Dr. Anju Pearce MD Consultations 06/18/25 09:39 Consult: Nephrology Routine Consulting Provider: Ta Phillips Reason for Consult: SHA EMERGENT Consult: No MD Notified: Yes Date Notified: 06/18/25 Time Notified: 09:53 Method of Notification: Answering Service Reason For Visit: ACUTE KIDNEY INJURY Diagnosis Discharge Diagnosis (1) SHA (acute kidney injury): Status: Acute Code(s): N17.9 - Acute kidney failure, unspecified Medications at Discharge Home Medications allopurinol 100 mg tablet 100 mg PO DAILYCM gout 04/28/14 aspirin 81 mg chewable tablet 81 mg PO DAILY heart 01/17/20 calcium carbonate-vitamin D3 600 mg-125 unit tablet 1 ea PO DAILY bones 01/17/20 metoprolol succinate 100 mg tablet,extended release 24 hr 100 mg PO DAILY bp 01/17/20 propylene glycol 0.6 % eye drops (Systane Balance) 1 drp ophthalmic (eye) QHS Dry Eyes 06/28/20 losartan 50 mg tablet 50 mg PO QDAY 09/22/24 amlodipine 10 mg tablet 10 mg PO QDAY 04/30/25 insulin aspart U-100 100 unit/mL (3 mL) subcutaneous pen 7 unit subcut QAC dm 04/30/25 rosuvastatin 5 mg tablet 5 mg PO QDAY 04/30/25 insulin glargine-yfgn 100 unit/mL (3 mL) subcutaneous pen 14 unit subcut QHS 06/14/25 ferrous sulfate 325 mg (65 mg iron) tablet (FeroSul) 325 mg PO DAILY@1200 30 days #30 tabs 06/20/25 furosemide 20 mg tablet (Lasix) 20 mg PO DAILY #30 tabs 06/20/25 pantoprazole 20 mg tablet,delayed release 20 mg PO DAILY 30 days #30 tabs 06/20/25 Hospital Course Operations None Procedures 2-D Echocardiogram Summary of Care Provided Minutes Spent on Discharge: 35 Hospital Course: Per HPI: CICI WOODWARD, is a 89 F who presents generalized weakness. Patient has multiple comorbidities including coronary artery disease status post CABG, chronic kidney disease stage III presented to the emergency department with progressive generalized weakness. Per patient he had recently been treated for acute cystitis has not felt well since. Also did admit to decreased oral intake. Presented to the emergency department as a result found to have worsening kidney function admitted to regular nursing floor as a case of SHA Hospital Course: 1. Acute on chronic diastolic CHF with generalized weakness and hypokalemia/essential HTN/HLD/CAD status post CABG/history of CVA???89-year-old female presented to the hospital issue with generalized weakness. It was thought that she had an SHA because her creatinine was 2.46 on admission with a baseline of around 1.5 however in discussion with nephrology her most recent creatinine levels are around 2-2.2 therefore she did not meet the criteria for an SHA on admission. However because of the initial assumption that she had an SHA she was given IV fluids because she admitted to decreased p.o. intake however she developed significant shortness of breath with pulmonary edema. Echocardiogram demonstrated an EF of 55% with stage II diastolic dysfunction and a PASP of 36 mmHg consistent with acute on chronic diastolic CHF exacerbation. She was started on Lasix and her shortness of breath improved as did her renal function. I did consult nephrology for assistance and they will continue to follow her as an outpatient. She did inquire about going to rehab on discharge however she did not meet therapeutic criteria with PT/OT so she will be discharged home with her daughter. I discussed the plan for discharge with her and she expressed understanding of the risks and benefits of going home and would like to go home today. I did start her on low-dose Lasix 20 mg p.o. daily so I do recommend outpatient follow-up with her PCP and cardiology. She did have an ambulatory pulse ox which demonstrated room air at rest and 2 L with ambulation of which I also recommend that she wear at night. I have reviewed the oxygen testing, and this patient qualifies for the home equipment and portability. The patient is mobile in the home and the community. 2. Normocytic normochromic anemia???she did have a drop in her hemoglobin in January she was 11.6 and today on the day of discharge she is 8.9, she did have a Hemoccult that came back positive however she was also given fluid therefore some of this component is dilutional. I did do iron studies which demonstrated anemia of chronic disease however given her lack of p.o. intake we will place her on p.o. iron recommending outpatient follow-up. She is also on a PPI and I recommend that she follow-up with gastroenterology as an outpatient as well for evalu (more content not included)...[facility]08-16-2025 Discharge summary [facility] Medical Records Department [address] [place] [address] Instructions for Home/Discharge Instructions 06/20/25 1200 MR#: [id number] Acct: [id number] Name: CICI WOODWARD Rep #:[id number] : 1935 89 From: Jack simpson MD PCP: Dr. Anju Pearce MD Status:AD M IN Discharge Instructions DC O2, CPAP, BIPAP needs Home O2 Discharge instructions: No Dressing / Incision Discharge Activity: Return to Normal Activity Dressing / Incision Call your doctor if you observe: Fever of 101 or Higher, Shortness of breath, Dizziness, Fainting spells, Swelling in the ankles, Chest pain and Increased palpitations (irregular heartbeat) Follow Up Care Test Results: Test results from this visit will be discussed in further detail at your follow- up appointment, if applicable. Discharge Plan Admission Admit Date/Time: 06/14/25 11:09 Attending Provider: Jack Mae Primary Care Provider: Anju Pearce Consulting Providers: Ventura Ivy; Ta Phillips Discharge Orders/Prescriptions Prescriptions: New pantoprazole 20 mg Tablet,Delayed Release (Dr/Ec) 20 mg PO DAILY 30 Days Qty: 30 0RF ferrous sulfate [FeroSul] 325 mg (65 mg iron) Tablet 325 mg PO DAILY@1200 30 Days Qty: 30 0RF furosemide [Lasix] 20 mg tablet 20 mg PO DAILY Qty: 30 0RF Continued Systane Balance 0.6 % drops 1 drp OPHTHALMIC QHS losartan 50 mg tablet 50 mg PO QDAY rosuvastatin 5 mg tablet 5 mg PO QDAY amlodipine 10 mg tablet 10 mg PO QDAY allopurinol 100 MG tablet 100 mg PO DAILYCM Patient Comments: GOUT metoprolol succinate 100 MG tablet extended release 24 hr 100 mg PO DAILY aspirin 81 MG tablet,chewable 81 mg PO DAILY calcium carbonate-vitamin D3 1 EACH tablet 1 ea PO DAILY insulin aspart U-100 100 unit/mL (3 mL) insulin pen 7 unit subcut QAC Rx Instructions: 8 units AM, 3 units, 6 units dinner insulin glargine-yfgn 100 unit/mL (3 mL) insulin pen 14 unit subcut QHS Referrals / Follow Up: Ta Phillips MD [Med Staff - Consulting] - Within 1 Month Anju Pearce MD [Primary Care Provider] - Within 1 Week Chidi Rao DO [Med Staff - Active Staff] - Within 3 Months (positive hemoccult) Marika George PA [Med Staff - Adv Practice Prof] - Within 1 Month Disposition Disposition (needs filled in before D/C Order can be placed): Home, Self Care 06/20/25 1204Jack Mae MD CC: Dr. Ventura Ivy MD; Dr. Ta Phillips MD; Dr. Anju Pearce MD ~ Signed [facility]08-15-2025 Progress note Author Jack Mae [facility] Note Date/Time June 19, 2025 4: 17pm [facility] Medical Records Department [address] [place] [address] Progress Note - Hospitalist 06/19/25 1614 MR#: [id number] Acct: [id number] Name: CICI WOODWARD Rep #:[id number] : 1935 89 From: Jack simpson MD PCP: Dr. Anju Pearce MD Status:AD M IN Location: MS3 [id number] Subjective Subjective Feels little bit better today, no issues overnight. Trialed another dose of Lasix today given that her kidney function improved to see if we can get her offoxygen Objective Data Objective Data Vital Signs: Vital Signs Temp Pulse Resp BP Pulse Ox O2 Del Method O2 Flow Rate 98.4 F 80 18 115/67 93 Room Air 3 06/19/25 14:04 06/19/25 14:07 06/19/25 14:04 06/19/25 14:04 06/19/25 14:07 06/19/25 14:07 06/19/25 08:59 Oxygen Flow Rate (L/min) 3 Oxygen Delivery Method Room Air Weight: 161 lb 6.054 oz Body Mass Index (BMI) 29.7 Intake & Output: Intake and Output for Last 24 Hours 06/18/25 06/19/25 06/20/25 03:59 03:59 03:59 Intake Total 1150 / 1150 1969 670 / 670 Balance 1150 / 1150 1969 670 / 670 Lab / Micro Data 06/19/25 11:59 06/19/25 06:19 Labs: Laboratory Results - last 24 hr 06/18/25 11:13: U Random Total Protein 55.1 H, Urine Creatinine 30.90, Protein/Creatinin Ratio 1783 H 06/18/25 12:01: POC Glucose 238 H 06/18/25 16:38: POC Glucose 182 H 06/18/25 18:47: Hgb 9.1 L 06/18/25 22:02: POC Glucose 155 H 06/19/25 06:19: WBC 8.6, RBC 2.86 L, Hgb 8.3 L, Hct 25.6 L, MCV 89.5, MCH 29.0, MCHC 32.4, RDW Std Deviation 45.6 H, RDW Coeff of Hernan 14.1, Plt Count 264, MPV 11.5, Immature Gran % (Auto) 0.600, Neut % (Auto) 69.7, Lymph % (Auto) 19.1, Green % (Auto) 8.8, Eos % (Auto) 1.3, Baso % (Auto) 0.5, Absolute Neuts (auto) 6.0, Absolute Lymphs (auto) 1.64, Nucleated RBC % 0, Sodium 136, Potassium 4.7, Chloride 107, Carbon Dioxide 16.8 L, Anion Gap 13, BUN 61 H, Creatinine 2.24 H, Estim Creat Clear Calc 16.26 L, Est GFR (MDRD) Non-Af 21 L, BUN/Creatinine Ratio27.2 H, Glucose 140 H, Calcium 9.1 06/19/25 07:59: POC Glucose 135 H 06/19/25 11:41: POC Glucose 118 H 06/19/25 11:59: Hgb 9.2 L, Hct 28.3 L Micro: Microbiology 06/18/25 10:00 Stool Stool Occult Blood (ROSARIO) - Final Occult Blood Positive Rhythm Strip Rhythm Strip: Sinus Rhythm Rate: 72 Ectopy: None Physical Exam Narrative General: Alert, Oriented x3, Cooperative, No apparent distress HEENT: Atraumatic, PERRLA, EOMI, Normocephalic Oral: Moist Mucosa Neck: Supple, No JVD Lungs: Diminished, Normal air movement, bibasilar crackles, No wheeze, No rales Cardiovascular: Regular rate, Regular Rhythm, Normal S1, Normal S2, No murmurs Abdomen: Soft, Non Tender, Non-Distended, No Hepato-splenomegaly Extremities: Trace edema, Capillary Refill Less than 3 Seconds Skin: No rashes, No breakdown Musculoskeletal: No Tenderness to Palpation of Joints or Extremities Neurological: No focal neurological deficits, Motor Exam 5/5 strength throughout, Sensory exam intact to light touch and pain Psych/Mental Status: Normal Affect, Appropriate Assessment & Plan Assessment/Plan (1) SHA (acute kidney injury): PLAN: Plan 1. SHA with hyperkalemia due to dehydration, recent UTI with antibiotics ? Unclear whether or not this has any intrinsic renal component from antibiotics, she discontinued these on ? She has admitted to having poor p.o. intake and does not like to drink water ? Slight improvement in her renal function with resolution of her hyperkalemia ? Renal ultrasound is unremarkable, appreciate nephrology's assistance ? Protein creatinine ratio 1.7 2. Acute on chronic diastolic CHF/essential HTN/HLD/CAD status post CABG/history of CVA ? Blood pressure stable ? Can resume her home blood pressure medications except for losartan pending renal function improvement ? Continue with Crestor ?She had a previous basal ganglia infarction, continue with goal-directed therapy ? Echo 06/16/2025 with an EF of 55% stage II diastolic dysfunction with a PASP of36 mmHg, will continue with Lasix as I believe her shortness of breath is related to pulmonary edema from a heart failure exacerbation. ? Repeat BMP in the morning 3. DM2 with CKD 3 ? Continue with insulin ? Accu-Cheks ACHS ? Will monitor make adjustments as necessary 4. Normocytic normochromic anemia ? Hemoglobin is 9, after 2.5 l of IV fluids ? Iron studies demonstrated anemia of chronic disease pattern given her chronic kidney disease though fecal occult also did come back positive ? Will continue to monitor and recheck in the morning DVT: SCDs Charges/Coding Visit Charges Inpatient E&M: 56999 Subs Hosp L2 06/19/25 1617 <Electronically signed by Jack Mae MD> Cosigner Signature (if applicable): CC: ~ Signed [facility] Work Phone: 1(859) 627-601808-15-2025 Progress note [facility] Medical Records Department [address] [place] [address] Progress Note - Hospitalist 06/19/25 1614 MR#: [id number] Acct: [id number] Name: CICI WOODWARD Rep #:[id number] : 1935 89 From: Jack simpson MD PCP: Dr. Anju Pearce MD Status:AD M IN Location: [place] 474155-1 Subjective Subjective Feels little bit better today, no issues overnight. Trialed another dose of Lasix today given that her kidney function improved to see if we can get her offoxygen Objective Data Objective Data Vital Signs: Vital Signs Temp Pulse Resp BP Pulse Ox O2 Del Method O2 Flow Rate 98.4 F 80 18 115/67 93 Room Air 3 06/19/25 14:04 06/19/25 14:07 06/19/25 14:04 06/19/25 14:04 06/19/25 14:07 06/19/25 14:07 06/19/25 08:59 Oxygen Flow Rate (L/min) 3 Oxygen Delivery Method Room Air Weight: 161 lb 6.054 oz Body Mass Index (BMI) 29.7 Intake & Output: Intake and Output for Last 24 Hours 06/18/25 06/19/25 06/20/25 03:59 03:59 03:59 Intake Total 1150 / 1150 1969 670 / 670 Balance 1150 / 1150 1969 670 / 670 Lab / Micro Data 06/19/25 11:59 06/19/25 06:19 Labs: Laboratory Results - last 24 hr 06/18/25 11:13: U Random Total Protein 55.1 H, Urine Creatinine 30.90, Protein/Creatinin Ratio 1783H 06/18/25 12:01: POC Glucose 238 H 06/18/25 16:38: POC Glucose 182 H 06/18/25 18:47: Hgb 9.1 L 06/18/25 22:02: POC Glucose 155 H 06/19/25 06:19: WBC 8.6, RBC 2.86 L, Hgb 8.3 L, Hct 25.6 L, MCV 89.5, MCH 29.0, MCHC 32.4, RDW Std Deviation 45.6 H, RDW Coeff of Hernan 14.1, Plt Count 264, MPV 11.5, Immature Gran % (Auto) 0.600, Neut% (Auto) 69.7, Lymph % (Auto) 19.1, Green % (Auto) 8.8, Eos % (Auto) 1.3, Baso % (Auto) 0.5, Absolute Neuts (auto) 6.0, Absolute Lymphs (auto) 1.64, Nucleated RBC % 0, Sodium 136, Potassium 4.7, Chloride 107, Carbon Dioxide 16.8 L, Anion Gap 13, BUN 61 H, Creatinine 2.24 H, Estim Creat Clear Calc 16.26 L, Est GFR (MDRD) Non-Af 21 L, BUN/Creatinine Ratio27.2 H, Glucose 140 H, Calcium 9.1 06/19/25 07:59: POC Glucose 135 H 06/19/25 11:41: POC Glucose 118 H 06/19/25 11:59: Hgb 9.2 L, Hct 28.3 L Micro: Microbiology 06/18/25 10:00 Stool Stool Occult Blood (ROSARIO) - Final Occult Blood Positive Rhythm Strip Rhythm Strip: Sinus Rhythm Rate: 72 Ectopy: None Physical Exam Narrative General: Alert, Oriented x3, Cooperative, No apparent distress HEENT: Atraumatic, PERRLA, EOMI, Normocephalic Oral: Moist Mucosa Neck: Supple, No JVD Lungs: Diminished, Normal air movement, bibasilar crackles, No wheeze, No rales Cardiovascular: Regular rate, Regular Rhythm, Normal S1, Normal S2, No murmurs Abdomen: Soft, Non Tender, Non-Distended, No Hepato-splenomegaly Extremities: Trace edema, Capillary Refill Less than 3 Seconds Skin: No rashes, No breakdown Musculoskeletal: No Tenderness to Palpation of Joints or Extremities Neurological: No focal neurological deficits, Motor Exam 5/5 strength throughout, Sensory exam intact to light touch and pain Psych/Mental Status: Normal Affect, Appropriate Assessment & Plan Assessment/Plan (1) SHA (acute kidney injury): PLAN: Plan 1. SHA with hyperkalemia due to dehydration, recent UTI with antibiotics ? Unclear whether or not this has any intrinsic renal component from antibiotics, she discontinued these on ? She has admitted to having poor p.o. intake and does not like to drink water ? Slight improvement in her renal function with resolution of her hyperkalemia ? Renal ultrasound is unremarkable, appreciate nephrology's assistance ? Protein creatinine ratio 1.7 2. Acute on chronic diastolic CHF/essential HTN/HLD/CAD status post CABG/history of CVA ? Blood pressure stable ? Can resume her home blood pressure medications except for losartan pending renal function improvement ? Continue with Crestor ?She had a previous basal ganglia infarction, continue with goal-directed therapy ? Echo 06/16/2025 with an EF of 55% stage II diastolic dysfunction with a PASP of36 mmHg, will continue with Lasix as I believe her shortness of breath is related to pulmonary edema from a heart failure exacerbation. ? Repeat BMP in the morning 3. DM2 with CKD 3 ? Continue with insulin ? Accu-Cheks ACHS ? Will monitor make adjustments as necessary 4. Normocytic normochromic anemia ? Hemoglobin is 9, after 2.5 l of IV fluids ? Iron studies demonstrated anemia of chronic disease pattern given her chronic kidney disease though fecal occult also did come back positive ? Will continue to monitor and recheck in the morning DVT: SCDs Charges/Coding Visit Charges Inpatient E&M: 90059 Subs Hosp L2 06/19/25 1617 Cosigner Signature (if applicable): CC: ~ Signed [facility]08-14-2025 Progress note Author Jack Mae [facility] Note Date/Time June 18, 2025 11 :45am [facility] Medical Records Department [address] [place] [address] Progress Note - Hospitalist 06/18/25 1140 MR#: [id number] Acct: [id number] Name: CICI WOODWARD Rep #:[id number] : 1935 89 From: Jack simpson MD PCP: Dr. Anju Pearce MD Status:AD M IN Location: [facility]3 HP194-0 Subjective Subjective Feels that she might be breathing a little bit better denies any bloody stools however hemoglobin is dropped to 8.4 Objective Data Objective Data Vital Signs: Vital Signs Temp Pulse Resp BP Pulse Ox O2 Del Method O2 Flow Rate 98 F 73 16 153/51 H 94 Nasal Cannula 2 06/18/25 05:00 06/18/25 10:05 06/18/25 05:00 06/18/25 10:05 06/18/25 05:00 06/18/25 05:00 06/18/25 05:00 Oxygen Flow Rate (L/min) 2 Oxygen Delivery Method Nasal Cannula Weight: 161 lb 6.054 oz Body Mass Index (BMI) 29.7 Intake & Output: Intake and Output for Last 24 Hours 06/17/25 06/18/25 06/19/25 03:59 03:59 03:59 Intake Total 2258.33 / 2258.33 1150 / 1150 500 / 500 Balance 2258.33 / 2258.33 1150 / 1150 500 / 500 Lab / Micro Data 06/18/25 06:13 06/18/25 06:13 Labs: Laboratory Results - last 24 hr 06/17/25 16:25: POC Glucose 215 H 06/17/25 21:13: POC Glucose 196 H 06/18/25 04:59: POC Glucose 174 H 06/18/25 06:13: WBC 8.7, RBC 2.82 L, Hgb 8.4 L, Hct 25.9 L, MCV 91.8, MCH 29.8, MCHC 32.4, RDW Std Deviation 47.9 H, RDW Coeff of Hernan 14.2, Plt Count 226, MPV 11.4, Immature Gran % (Auto) 0.300, Neut % (Auto) 70.8 H, Lymph % (Auto) 19.4, Green % (Auto) 8.3, Eos % (Auto) 0.7, Baso % (Auto) 0.5, Absolute Neuts (auto) 6.1, Absolute Lymphs (auto) 1.68, Nucleated RBC % 0, Sodium 135, Potassium 5.0, Chloride 106, Carbon Dioxide 15.6 L, Anion Gap 13, BUN 61 H, Creatinine 2.42 H, Estim Creat Clear Calc 15.05 L, Est GFR (MDRD) Non-Af 19 L, BUN/Creatinine Ratio25.0 H, Glucose 208 H, Calcium 8.9 06/18/25 06:17: POC Glucose 205 H Rhythm Strip Rhythm Strip: Sinus Rhythm Rate: 72 Ectopy: None Physical Exam Narrative General: Alert, Oriented x3, Cooperative, No apparent distress HEENT: Atraumatic, PERRLA, EOMI, Normocephalic Oral: Moist Mucosa Neck: Supple, No JVD Lungs: Diminished, Normal air movement, bibasilar crackles, No wheeze, No rales Cardiovascular: Regular rate, Regular Rhythm, Normal S1, Normal S2, No murmurs Abdomen: Soft, Non Tender, Non-Distended, No Hepato-splenomegaly Extremities: Edema, Capillary Refill Less than 3 Seconds Skin: No rashes, No breakdown Musculoskeletal: No Tenderness to Palpation of Joints or Extremities Neurological: No focal neurological deficits, Motor Exam 5/5 strength throughout, Sensory exam intact to light touch and pain Psych/Mental Status: Normal Affect, Appropriate Assessment & Plan Assessment/Plan (1) SHA (acute kidney injury): PLAN: Plan 1. SHA with hyperkalemia due to dehydration, recent UTI with antibiotics ? Unclear whether or not this has any intrinsic renal component from antibiotics, she discontinued these on ? She has admitted to having poor p.o. intake and does not like to drink water ?Renal functions got worse and she became short of breath ? Renal ultrasound is unremarkable, will obtain urine electrolytes and consult nephrology ? UA was negative, no UTI ? Hyperkalemia has resolved 2. Acute on chronic diastolic CHF/essential HTN/HLD/CAD status post CABG/history of CVA ? Blood pressure stable ? Can resume her home blood pressure medications except for losartan pending renal function improvement ? Continue with Crestor ?She had a previous basal ganglia infarction, continue with goal-directed therapy ? Echo 06/16/2025 with an EF of 55% stage II diastolic dysfunction with a PASP of36 mmHg, will continue with Lasix as I believe her shortness of breath is related to pulmonary edema from a heart failure exacerbation. ? Repeat BMP in the morning 3. DM2 with CKD 3 ? Continue with insulin ? Accu-Cheks ACHS ? Will monitor make adjustments as necessary 4. Normocytic normochromic anemia ? Hemoglobin is 9, after 2.5 l of IV fluids ? Iron studies demonstrated anemia of chronic disease pattern given her chronic kidney disease DVT: Heparin Charges/Coding Visit Charges Inpatient E&M: 68430 Subs Hosp L2 06/18/25 1143 <Electronically signed by Jack Mae MD> Cosigner Signature (if applicable): CC: ~ Signed ADDENDUM by Dr. Jack Mae MD on 06/18/25 at 1144 Addendum Will obtain a fecal occult to evaluate her anemia. 06/18/25 1144<Electronically signed by Jack Mae MD> Cosigner Signature (if applicable): cc: ~* Signed [facility] Work Phone: 1(502) 496-176108-14-2025 Progress note [facility] Medical Records Department [address] [place] [address] Progress Note - Hospitalist 06/18/25 1140 MR#: [id number] Acct: [id number] Name: CICI WOODWARD Rep #:[id number] : 1935 89 From: Jack simpson MD PCP: Dr. Anju Pearce MD Status:AD M IN Location: [address] Subjective Subjective Feels that she might be breathing a little bit better denies any bloody stools however hemoglobin is dropped to 8.4 Objective Data Objective Data Vital Signs: Vital Signs Temp Pulse Resp BP Pulse Ox O2 Del Method O2 Flow Rate 98 F 73 16 153/51 H 94 Nasal Cannula 2 06/18/25 05:00 06/18/25 10:05 06/18/25 05:00 06/18/25 10:05 06/18/25 05:00 06/18/25 05:00 06/18/25 05:00 Oxygen Flow Rate (L/min) 2 Oxygen Delivery Method Nasal Cannula Weight: 161 lb 6.054 oz Body Mass Index (BMI) 29.7 Intake & Output: Intake and Output for Last 24 Hours 06/17/25 06/18/25 06/19/25 03:59 03:59 03:59 Intake Total 2258.33 / 2258.33 1150 / 1150 500 / 500 Balance 2258.33 / 2258.33 1150 / 1150 500 / 500 Lab / Micro Data 06/18/25 06:13 06/18/25 06:13 Labs: Laboratory Results - last 24 hr 06/17/25 16:25: POC Glucose 215 H 06/17/25 21:13: POC Glucose 196 H 06/18/25 04:59: POC Glucose 174 H 06/18/25 06:13: WBC 8.7, RBC 2.82 L, Hgb 8.4 L, Hct 25.9 L, MCV 91.8, MCH 29.8, MCHC 32.4, RDW Std Deviation 47.9 H, RDW Coeff of Hernan 14.2, Plt Count 226, MPV 11.4, Immature Gran % (Auto) 0.300, Neut% (Auto) 70.8 H, Lymph % (Auto) 19.4, Green % (Auto) 8.3, Eos % (Auto) 0.7, Baso % (Auto) 0.5, Absolute Neuts (auto) 6.1, Absolute Lymphs (auto) 1.68, Nucleated RBC % 0, Sodium 135, Potassium 5.0, Chloride 106, Carbon Dioxide 15.6 L, Anion Gap 13, BUN 61 H, Creatinine 2.42 H, Estim Creat Clear Calc 15.05 L, Est GFR (MDRD) Non-Af 19 L, BUN/Creatinine Ratio25.0 H, Glucose 208 H, Calcium 8.9 06/18/25 06:17: POC Glucose 205 H Rhythm Strip Rhythm Strip: Sinus Rhythm Rate: 72 Ectopy: None Physical Exam Narrative General: Alert, Oriented x3, Cooperative, No apparent distress HEENT: Atraumatic, PERRLA, EOMI, Normocephalic Oral: Moist Mucosa Neck: Supple, No JVD Lungs: Diminished, Normal air movement, bibasilar crackles, No wheeze, No rales Cardiovascular: Regular rate, Regular Rhythm, Normal S1, Normal S2, No murmurs Abdomen: Soft, Non Tender, Non-Distended, No Hepato-splenomegaly Extremities: Edema, Capillary Refill Less than 3 Seconds Skin: No rashes, No breakdown Musculoskeletal: No Tenderness to Palpation of Joints or Extremities Neurological: No focal neurological deficits, Motor Exam 5/5 strength throughout, Sensory exam intact to light touch and pain Psych/Mental Status: Normal Affect, Appropriate Assessment & Plan Assessment/Plan (1) SHA (acute kidney injury): PLAN: Plan 1. SHA with hyperkalemia due to dehydration, recent UTI with antibiotics ? Unclear whether or not this has any intrinsic renal component from antibiotics, she discontinued these on ? She has admitted to having poor p.o. intake and does not like to drink water ?Renal functions got worse and she became short of breath ? Renal ultrasound is unremarkable, will obtain urine electrolytes and consult nephrology ? UA was negative, no UTI ? Hyperkalemia has resolved 2. Acute on chronic diastolic CHF/essential HTN/HLD/CAD status post CABG/history of CVA ? Blood pressure stable ? Can resume her home blood pressure medications except for losartan pending renal function improvement ? Continue with Crestor ?She had a previous basal ganglia infarction, continue with goal-directed therapy ? Echo 06/16/2025 with an EF of 55% stage II diastolic dysfunction with a PASP of36 mmHg, will continue with Lasix as I believe her shortness of breath is related to pulmonary edema from a heart failure exacerbation. ? Repeat BMP in the morning 3. DM2 with CKD 3 ? Continue with insulin ? Accu-Cheks ACHS ? Will monitor make adjustments as necessary 4. Normocytic normochromic anemia ? Hemoglobin is 9, after 2.5 l of IV fluids ? Iron studies demonstrated anemia of chronic disease pattern given her chronic kidney disease DVT: Heparin Charges/Coding Visit Charges Inpatient E&M: 35018 Subs Hosp L2 06/18/25 1143 Cosigner Signature (if applicable): CC: ~ Signed ADDENDUM by Dr. Jack Mae MD on 06/18/25 at 1144 Addendum Will obtain a fecal occult to evaluate her anemia. 06/18/25 1144 Cosigner Signature (if applicable): cc: ~* Signed [facility]08-13-2025 Progress note Author Jack Mae [facility] Note Date/Time June 17, 2025 9: 49am [facility] Medical Records Department [address] [place] [address] Progress Note - Hospitalist 06/17/25 0947 MR#: [id number] Acct: [id number] Name: CICI WOODWARD Rep #:[id number] : 1935 89 From: Jack simpson MD PCP: Dr. Anju Pearce MD Status:AD M IN [place] [facility] [place] [id number] Subjective Subjective Oxygen requirements are improving however her renal functions gotten worse. Continue lower extremity edema and basilar crackles so we will trial her on a dose of Lasix today pending echocardiogram Objective Data Objective Data Vital Signs: Vital Signs Temp Pulse Resp BP Pulse Ox O2 Del Method O2 Flow Rate 98.8 F 70 18 155/58 H 92 Nasal Cannula 2 06/17/25 08:27 06/17/25 08:27 06/17/25 08:27 06/17/25 08:27 06/17/25 08:27 06/17/25 08:27 06/17/25 08:27 Oxygen Flow Rate (L/min) 2 Oxygen Delivery Method Nasal Cannula Weight: 161 lb 6.054 oz Body Mass Index (BMI) 29.7 Intake & Output: Intake and Output for Last 24 Hours 06/16/25 06/17/25 06/18/25 03:59 03:59 03:59 Intake Total 1833.33 / 1833.33 2258.33 / 2258.33 500 / 500 Balance 1833.33 / 1833.33 2258.33 / 2258.33 500 / 500 Lab / Micro Data 06/17/25 06:22 06/17/25 06:22 Labs: Laboratory Results - last 24 hr 06/16/25 12:06: POC Glucose 209 H 06/16/25 16:17: POC Glucose 155 H 06/16/25 22:32: POC Glucose 198 H 06/17/25 06:22: WBC 9.7, RBC 3.06 L, Hgb 9.3 L, Hct 28.2 L, MCV 92.2, MCH 30.4, MCHC 33.0, RDW Std Deviation 49.0 H, RDW Coeff of Hernan 14.5, Plt Count 271, MPV 11.2, Immature Gran % (Auto) 0.400, Neut % (Auto) 66.2, Lymph % (Auto) 25.2, Green % (Auto) 7.5, Eos % (Auto) 0.3, Baso % (Auto) 0.4, Absolute Neuts (auto) 6.4, Absolute Lymphs (auto) 2.44, Nucleated RBC % 0, Sodium 134, Potassium 5.2 H, Chloride 107, Carbon Dioxide 15.0 L, Anion Gap 13, BUN 56 H, Creatinine 2.37 H, Estim Creat Clear Calc 15.37 L, Est GFR (MDRD) Non-Af 19 L, BUN/Creatinine Ratio 23.6 H, Glucose 159 H, Calcium 9.1 06/17/25 06:37: POC Glucose 164 H Radiography Diagnostic Testing: Radiology Impression Chest X-Ray 06/16/25 19:12 IMPRESSION: Probable worsening edema in the setting of cardiomegaly. Infection is possible. Correlate with fever status. Reading Location: [facility] Rhythm Strip Rhythm Strip: Sinus Rhythm Rate: 72 Ectopy: None Physical Exam Narrative General: Alert, Oriented x3, Cooperative, No apparent distress HEENT: Atraumatic, PERRLA, EOMI, Normocephalic Oral: Moist Mucosa Neck: Supple, No JVD Lungs: Diminished, Normal air movement, bibasilar crackles, No wheeze, No rales Cardiovascular: Regular rate, Regular Rhythm, Normal S1, Normal S2, No murmurs Abdomen: Soft, Non Tender, Non-Distended, No Hepato-splenomegaly Extremities: Edema, Capillary Refill Less than 3 Seconds Skin: No rashes, No breakdown Musculoskeletal: No Tenderness to Palpation of Joints or Extremities Neurological: No focal neurological deficits, Motor Exam 5/5 strength throughout, Sensory exam intact to light touch and pain Psych/Mental Status: Normal Affect, Appropriate Assessment & Plan Assessment/Plan (1) SHA (acute kidney injury): PLAN: Plan 1. SHA with hyperkalemia due to dehydration poor oral intake in the setting of a recent UTI with antibiotics ? Unclear whether or not this has any intrinsic renal component from antibiotics, she discontinued these on ? She has admitted to having poor p.o. intake and does not like to drink water ?Renal functions got worse and she became short of breath last night echo is pending we will trial her on a dose of Lasix and monitor her renal function ? UA was negative, no UTI ? Hyperkalemia has resolved 2. Essential HTN/HLD/CAD status post CABG/history of CVA ? Blood pressure stable ? Can resume her home blood pressure medications except for losartan pending renal function improvement ? Continue with Crestor ?She had a previous basal ganglia infarction, continue with goal-directed therapy ? Echo pending, previous echo in October with stage II diastolic dysfunction and normal EF 3. DM2 with CKD 3 ? Continue with insulin ? Accu-Cheks ACHS ? Will monitor make adjustments as necessary 4. Normocytic normochromic anemia ? Hemoglobin is 9, after 2.5 l of IV fluids ? Iron studies demonstrated anemia of chronic disease pattern given her chronic kidney disease DVT: Heparin Charges/Coding Visit Charges Inpatient E&M: 63143 Subs Hosp L2 06/17/25 0949 <Electronically signed by Jack Mae MD> Cosigner Signature (if applicable): CC: ~ Signed [facility] Work Phone: 1(922) 268-106408-13-2025 Progress note [facility] Medical Records Department [address] [place] [address] Progress Note - Hospitalist 06/17/25 0947 MR#: [id number] Acct: [id number] Name: CICI WOODWARD Rep #:[id number] : 1935 89 From: Jack simpson MD PCP: Dr. nAju Pearce MD Status:AD M IN Location: [place] [address] Subjective Subjective Oxygen requirements are improving however her renal functions gotten worse. Continue lower extremity edema and basilar crackles so we will trial her on a dose of Lasix today pending echocardiogram Objective Data Objective Data Vital Signs: Vital Signs Temp Pulse Resp BP Pulse Ox O2 Del Method O2 Flow Rate 98.8 F 70 18 155/58 H 92 Nasal Cannula 2 06/17/25 08:27 06/17/25 08:27 06/17/25 08:27 06/17/25 08:27 06/17/25 08:27 06/17/25 08:27 06/17/25 08:27 Oxygen Flow Rate (L/min) 2 Oxygen Delivery Method Nasal Cannula Weight: 161 lb 6.054 oz Body Mass Index (BMI) 29.7 Intake & Output: Intake and Output for Last 24 Hours 06/16/25 06/17/25 06/18/25 03:59 03:59 03:59 Intake Total 1833.33 / 1833.33 2258.33 / 2258.33 500 / 500 Balance 1833.33 / 1833.33 2258.33 / 2258.33 500 / 500 Lab / Micro Data 06/17/25 06:22 06/17/25 06:22 Labs: Laboratory Results - last 24 hr 06/16/25 12:06: POC Glucose 209 H 06/16/25 16:17: POC Glucose 155 H 06/16/25 22:32: POC Glucose 198 H 06/17/25 06:22: WBC 9.7, RBC 3.06 L, Hgb 9.3 L, Hct 28.2 L, MCV 92.2, MCH 30.4, MCHC 33.0, RDW Std Deviation 49.0 H, RDW Coeff of Hernan 14.5, Plt Count 271, MPV 11.2, Immature Gran % (Auto) 0.400, Neut% (Auto) 66.2, Lymph % (Auto) 25.2, Green % (Auto) 7.5, Eos % (Auto) 0.3, Baso % (Auto) 0.4, Absolute Neuts (auto) 6.4, Absolute Lymphs (auto) 2.44, Nucleated RBC % 0, Sodium 134, Potassium 5.2 H, Chloride 107, Carbon Dioxide 15.0 L, Anion Gap 13, BUN 56 H, Creatinine 2.37 H, Estim Creat Clear Calc 15.37 L, Est GFR (MDRD) Non-Af 19 L, BUN/Creatinine Ratio 23.6 H, Glucose 159 H, Calcium 9.1 06/17/25 06:37: POC Glucose 164 H Radiography Diagnostic Testing: Radiology Impression Chest X-Ray 06/16/25 19:12 IMPRESSION: Probable worsening edema in the setting of cardiomegaly. Infection is possible. Correlate with fever status. Reading Location: [facility] Rhythm Strip Rhythm Strip: Sinus Rhythm Rate: 72 Ectopy: None Physical Exam Narrative General: Alert, Oriented x3, Cooperative, No apparent distress HEENT: Atraumatic, PERRLA, EOMI, Normocephalic Oral: Moist Mucosa Neck: Supple, No JVD Lungs: Diminished, Normal air movement, bibasilar crackles, No wheeze, No rales Cardiovascular: Regular rate, Regular Rhythm, Normal S1, Normal S2, No murmurs Abdomen: Soft, Non Tender, Non-Distended, No Hepato-splenomegaly Extremities: Edema, Capillary Refill Less than 3 Seconds Skin: No rashes, No breakdown Musculoskeletal: No Tenderness to Palpation of Joints or Extremities Neurological: No focal neurological deficits, Motor Exam 5/5 strength throughout, Sensory exam intact to light touch and pain Psych/Mental Status: Normal Affect, Appropriate Assessment & Plan Assessment/Plan (1) SHA (acute kidney injury): PLAN: Plan 1. SHA with hyperkalemia due to dehydration poor oral intake in the setting of a recent UTI with antibiotics ? Unclear whether or not this has any intrinsic renal component from antibiotics, she discontinued these on ? She has admitted to having poor p.o. intake and does not like to drink water ?Renal functions got worse and she became short of breath last night echo is pending we will trial her on a dose of Lasix and monitor her renal function ? UA was negative, no UTI ? Hyperkalemia has resolved 2. Essential HTN/HLD/CAD status post CABG/history of CVA ? Blood pressure stable ? Can resume her home blood pressure medications except for losartan pending renal function improvement ? Continue with Crestor ?She had a previous basal ganglia infarction, continue with goal-directed therapy ? Echo pending, previous echo in October with stage II diastolic dysfunction and normal EF 3. DM2 with CKD 3 ? Continue with insulin ? Accu-Cheks ACHS ? Will monitor make adjustments as necessary 4. Normocytic normochromic anemia ? Hemoglobin is 9, after 2.5 l of IV fluids ? Iron studies demonstrated anemia of chronic disease pattern given her chronic kidney disease DVT: Heparin Charges/Coding Visit Charges Inpatient E&M: 01174 Subs Hosp L2 06/17/25 2435 Cosigner Signature (if applicable): CC: ~ Signed [facility]08-12-2025 Progress note Author Jack Mae [facility] Note Date/Time June 16, 2025 7: 30pm [facility] Medical Records Department [address] [place] [address] Progress Note 06/16/251926 MR#: [id number] Acct: [id number] Name: CICI WOODWARD Rep #:[id number] : 1935 89 From: Jack simpson MD PCP: Dr. Anju Pearce MD Status:AD M IN [place] [facility] [place] [id number] Progress Note Notified that she was having increased work of breathing and shortness of breath. IV fluids were discontinued she was placed on 2 to 3 L nasal cannula which she is tolerating very well. Some concern about anemia being the cause however anemia and iron deficiency do not cause acute shortness of breath, basedon her iron studies she likely has anemia of chronic disease related to her chronic kidney disease. She does have a history of stage II diastolic dysfunction with a normal EF on an echo back in October 2024, will repeat a limited echo tomorrow morning. She does have some lower extremity edema and fine crackles in her bases. She does need to ambulate more as her could also bautista component of atelectasis. Chest x-ray on my read shows maybe some mild pulmonary edema but nothing overtly concerning. Will hold off of Lasix tonight given her acute kidney injury and encourage ambulation and incentive spirometry 06/16/251929 <Electronically signed by Jack Mae MD> Jack Mae MD Cosigner Signature (if applicable): CC: ~ Signed [facility] Work Phone: 1(807) 695-993708-12-2025 Radiology Diagnostic study note [facility] Imaging Services [address] [place] [address] Chest 1 View (Portable) MR#: [id number] Acct: [id number] Name: CICI WOODWARD Rep #: [id number] : 1935 89 From: Christiano Alfredo MD PCP: Dr. Anju Pearce MD Status: AD M IN Study:Chest 1 View (Portable) Date of Exam: 06/16/25 Exam# [id number] Ordering Dr: Jack Mae MD PROCEDURE: CHEST 1 VIEW (PORTABLE) 06/16/2025 REASON FOR EXAM: SHORTNESS OF BREATH AND WHEEZING. TECHNIQUE: Frontal view of the chest. COMPARISON: 06/14/2025. FINDINGS: Ihlmw-[id number]-[id number]-left basilar consolidative opacities in a pattern favoring edema. Infection is possible. The heart is enlarged. Prior sternotomy. RAD/Chest 1 View (Portable) IMPRESSION: Probable worsening edema in the setting of cardiomegaly. Infection is possible. Correlate with fever status. Reading Location: [facility] CC: Dr. Anju Pearce MD; Dr. Jack Mae MD ~ Document Scanner: Signed [facility]08-12-2025 Progress note [facility] Medical Records Department [address] [place] [address] Progress Note 06/16/251926 MR#: [id number] Acct: [id number] Name: CICI WOODWARD Rep #:[id number] : 1935 89 From: Jack simpson MD PCP: Dr. Anju Pearce MD Status:AD M IN Location: [facility] [place] [id number] Progress Note Notified that she was having increased work of breathing and shortness of breath. IV fluids were discontinued she was placed on 2 to 3 L nasal cannula which she is tolerating very well. Some concern about anemia being the cause however anemia and iron deficiency do not cause acute shortness of breath, basedon her iron studies she likely has anemia of chronic disease related to her chronic kidney disease. She does have a history of stage II diastolic dysfunction with a normal EF on an echo back in October 2024, will repeat a limited echo tomorrow morning. She does have some lower extremity edema and fine crackles in her bases. She does need to ambulate more as her could also bautista component of atelectasis. Chest x-ray on my read shows maybe some mild pulmonary edema but nothing overtly concerning. Will hold off of Lasix tonight given her acute kidney injury and encourage ambulation and incentive spirometry 06/16/251929 Jack Mae MD Cosigner Signature (if applicable): CC: ~ Signed [facility]08-12-2025 NoteHNO ID: [id number] Author: HAL HOLLIDAY MA Service: ? Author Type: Exercise Physiologist Type: Progress Notes Filed: 06/16/2025 15:32 Note Text: POPULATION HEALTH NAVIGATION OUTREACH Action/FYI UPDATED APPOINTMENT NOTE HCC CLOSURE Topic Due (Y or N) Comments Medicare Wellness PCP Follow up Colorectal Cancer Screening Controlling Blood Pressure A1C HCC Y Flu Vaccine Care Everywhere Reviewed MyChart Activation Updated Appointment Note Reason for Outreach Care Gap/HCC or Scheduling Wellness Visits Care Gaps due: N/A Patient Contacted: Unable or unnecessary to reach patient: HCC related Patient already scheduled Updated appointment notes Navigation Signature: Hal Holliday MA June 16, 2025 3:29 [facility]08-12-2025 History of Present illness Narrative* Hal Holliday MA - 06/16/2025 3:29 PM EDT POPULATION HEALTH NAVIGATION OUTREACH Action/FYI UPDATED APPOINTMENT NOTE HCC CLOSURE Topic Due (Y or N) Comments Medicare Wellness PCP Follow up Colorectal Cancer Screening Controlling Blood Pressure A1C HCC Y Flu Vaccine Care Everywhere Reviewed MyChart Activation Updated Appointment Note Reason for Outreach Care Gap/HCC or Scheduling Wellness Visits Care Gaps due: N/A Patient Contacted: Unable or unnecessary to reach patient: HCC related Patient already scheduled Updated appointment notes Navigation Signature: Hal Holliday MA June 16, 2025 3:29 PM [facility] Progress note Author Jack Mae [facility] Note Date/Time June 16, 2025 11 :49am [facility] Medical Records Department [address] [place] [address] Progress Note - Hospitalist 06/16/25 1146 MR#: [id number] Acct: [id number] Name: CICI WOODWARD Rep #:[id number] : 1935 89 From: Jack simpson MD PCP: Dr. Anju Pearce MD Status:AD M IN Location: [facility]3 [id number] Subjective Subjective Renal function worsened overnight, her IV had fallen out yesterday so I elected to try to encourage her to drink liquids which she did not do successfully Objective Data Objective Data Vital Signs: Vital Signs Temp Pulse Resp BP Pulse Ox O2 Del Method 97.7 F L 74 16 166/63 H 93 Room Air 06/16/25 04:24 06/16/25 09:23 06/16/25 04:24 06/16/25 09:23 06/16/25 04:24 06/16/25 04:24 Oxygen Delivery Method Room Air Weight: 161 lb 6.054 oz Body Mass Index (BMI) 29.7 Intake & Output: Intake and Output for Last 24 Hours 06/15/25 06/16/25 06/17/25 03:59 03:59 03:59 Intake Total 3756.25 / 3756.25 1833.33 / 1833.33 Balance 3756.25 / 3756.25 1833.33 / 1833.33 Lab / Micro Data 06/16/25 05:08 06/16/25 05:08 Labs: Laboratory Results - last 24 hr 06/15/25 06:16: Iron 21 L, TIBC 290, Iron Saturation 7.0 L, Unsaturated IBC 269,Ferritin 153 06/15/25 16:20: POC Glucose 176 H 06/15/25 21:57: POC Glucose 295 H 06/16/25 05:08: WBC 9.0, RBC 3.12 L, Hgb 9.3 L, Hct 28.7 L, MCV 92.0, MCH 29.8, MCHC 32.4, RDW Std Deviation 48.9 H, RDW Coeff of Hernan 14.6, Plt Count 268, MPV 10.8, Immature Gran % (Auto) 0.200, Neut % (Auto) 68.7, Lymph % (Auto) 22.7, Green % (Auto) 8.0, Eos % (Auto) 0.1, Baso % (Auto) 0.3, Absolute Neuts (auto) 6.2, Absolute Lymphs (auto) 2.04, Nucleated RBC % 0, Sodium 133, Potassium 5.1, Chloride 106, Carbon Dioxide 15.7 L, Anion Gap 12, BUN 48 H, Creatinine 2.29 H, Estim Creat Clear Calc 15.91 L, Est GFR (MDRD) Non-Af 20 L, BUN/Creatinine Ratio21.0 H, Glucose 149 H, Calcium 8.9 06/16/25 06:49: POC Glucose 140 H Rhythm Strip Rhythm Strip: Sinus Rhythm Rate: 72 Ectopy: None Physical Exam Narrative General: Alert, Oriented x3, Cooperative, No apparent distress HEENT: Atraumatic, PERRLA, EOMI, Normocephalic Oral: Moist Mucosa Neck: Supple, No JVD Lungs: Diminished, Normal air movement, No rhonchi, No wheeze, No rales Cardiovascular: Regular rate, Regular Rhythm, Normal S1, Normal S2, No murmurs Abdomen: Soft, Non Tender, Non-Distended, No Hepato-splenomegaly Extremities: No edema, Capillary Refill Less than 3 Seconds Skin: No rashes, No breakdown Musculoskeletal: No Tenderness to Palpation of Joints or Extremities Neurological: No focal neurological deficits, Motor Exam 5/5 strength throughout, Sensory exam intact to light touch and pain Psych/Mental Status: Normal Affect, Appropriate Assessment & Plan Assessment/Plan (1) SHA (acute kidney injury): PLAN: Plan 1. SHA with hyperkalemia due to dehydration poor oral intake in the setting of a recent UTI with antibiotics ? Unclear whether or not this has any intrinsic renal component from antibiotics, she discontinued these on ? She has admitted to having poor p.o. intake and does not like to drink water ? She has had improvement with IV fluids though her kidney function got worse yesterday with just oral intake therefore will reinsert an IV and continue with IV fluids ? UA was negative, no UTI ? Hyperkalemia has resolved 2. Essential HTN/HLD/CAD status post CABG/history of CVA ? Blood pressure stable ? Can resume her home blood pressure medications except for losartan pending renal function improvement ? Continue with Crestor ?She had a previous basal ganglia infarction, continue with goal-directed therapy 3. DM2 with CKD 3 ? Continue with insulin ? Accu-Cheks ACHS ? Will monitor make adjustments as necessary 4. Normocytic normochromic anemia ? Hemoglobin is 9, after 2.5 l of IV fluids ? Iron studies demonstrated anemia of chronic disease pattern given her chronic kidney disease DVT: Heparin Charges/Coding Visit Charges Inpatient E&M: 70974 Subs Hosp L2 06/16/25 1142 <Electronically signed by Jack Mae MD> Cosigner Signature (if applicable): CC: ~ Signed [facility] Work Phone: 1(587) 371-560408-12-2025 Progress note [facility] Medical Records Department [address] [place] [address] Progress Note - Hospitalist 06/16/25 1146 MR#: [id number] Acct: [id number] Name: CICI WOODWARD Rep #:[id number] : 1935 89 From: Jack simpson MD PCP: Dr. Anju Pearce MD Status:AD M IN Location: [facility] EE989-3 Subjective Subjective Renal function worsened overnight, her IV had fallen out yesterday so I elected to try to encourageher to drink liquids which she did not do successfully Objective Data Objective Data Vital Signs: Vital Signs Temp Pulse Resp BP Pulse Ox O2 Del Method 97.7 F L 74 16 166/63 H 93 Room Air 06/16/25 04:24 06/16/25 09:23 06/16/25 04:24 06/16/25 09:23 06/16/25 04:24 06/16/25 04:24 Oxygen Delivery Method Room Air Weight: 161 lb 6.054 oz Body Mass Index (BMI) 29.7 Intake & Output: Intake and Output for Last 24 Hours 06/15/25 06/16/25 06/17/25 03:59 03:59 03:59 Intake Total 3756.25 / 3756.25 1833.33 / 1833.33 Balance 3756.25 / 3756.25 1833.33 / 1833.33 Lab / Micro Data 06/16/25 05:08 06/16/25 05:08 Labs: Laboratory Results - last 24 hr 06/15/25 06:16: Iron 21 L, TIBC 290, Iron Saturation 7.0 L, Unsaturated IBC 269,Ferritin 153 06/15/25 16:20: POC Glucose 176 H 06/15/25 21:57: POC Glucose 295 H 06/16/25 05:08: WBC 9.0, RBC 3.12 L, Hgb 9.3 L, Hct 28.7 L, MCV 92.0, MCH 29.8, MCHC 32.4, RDW Std Deviation 48.9 H, RDW Coeff of Hernan 14.6, Plt Count 268, MPV 10.8, Immature Gran % (Auto) 0.200, Neut% (Auto) 68.7, Lymph % (Auto) 22.7, Green % (Auto) 8.0, Eos % (Auto) 0.1, Baso % (Auto) 0.3, Absolute Neuts (auto) 6.2, Absolute Lymphs (auto) 2.04, Nucleated RBC % 0, Sodium 133, Potassium 5.1, Chloride 106, Carbon Dioxide 15.7 L, Anion Gap 12, BUN 48 H, Creatinine 2.29 H, Estim Creat Clear Calc 15.91 L, Est GFR (MDRD) Non-Af 20 L, BUN/Creatinine Ratio21.0 H, Glucose 149 H, Calcium 8.9 06/16/25 06:49: POC Glucose 140 H Rhythm Strip Rhythm Strip: Sinus Rhythm Rate: 72 Ectopy: None Physical Exam Narrative General: Alert, Oriented x3, Cooperative, No apparent distress HEENT: Atraumatic, PERRLA, EOMI, Normocephalic Oral: Moist Mucosa Neck: Supple, No JVD Lungs: Diminished, Normal air movement, No rhonchi, No wheeze, No rales Cardiovascular: Regular rate, Regular Rhythm, Normal S1, Normal S2, No murmurs Abdomen: Soft, Non Tender, Non-Distended, No Hepato-splenomegaly Extremities: No edema, Capillary Refill Less than 3 Seconds Skin: No rashes, No breakdown Musculoskeletal: No Tenderness to Palpation of Joints or Extremities Neurological: No focal neurological deficits, Motor Exam 5/5 strength throughout, Sensory exam intact to light touch and pain Psych/Mental Status: Normal Affect, Appropriate Assessment & Plan Assessment/Plan (1) SHA (acute kidney injury): PLAN: Plan 1. SHA with hyperkalemia due to dehydration poor oral intake in the setting of a recent UTI with antibiotics ? Unclear whether or not this has any intrinsic renal component from antibiotics, she discontinued these on ? She has admitted to having poor p.o. intake and does not like to drink water ? She has had improvement with IV fluids though her kidney function got worse yesterday with just oral intake therefore will reinsert an IV and continue with IV fluids ? UA was negative, no UTI ? Hyperkalemia has resolved 2. Essential HTN/HLD/CAD status post CABG/history of CVA ? Blood pressure stable ? Can resume her home blood pressure medications except for losartan pending renal function improvement ? Continue with Crestor ?She had a previous basal ganglia infarction, continue with goal-directed therapy 3. DM2 with CKD 3 ? Continue with insulin ? Accu-Cheks ACHS ? Will monitor make adjustments as necessary 4. Normocytic normochromic anemia ? Hemoglobin is 9, after 2.5 l of IV fluids ? Iron studies demonstrated anemia of chronic disease pattern given her chronic kidney disease DVT: Heparin Charges/Coding Visit Charges Inpatient E&M: 31732 Subs Hosp L2 06/16/25 1149 Cosigner Signature (if applicable): CC: ~ Signed [facility]08-12-2025 NotePatient Outreach (NETNAV) CICI WOODWARD I ([id number]) 1935 F Date Time Provider Department 06/16/25 HAL HOLLIDAY NETJAMIL During your visit today, we recorded the following information about you: Hal Holliday MA 06/16/2025 3:32 PM Signed POPULATION HEALTH NAVIGATION OUTREACH Action/ UPDATED APPOINTMENT NOTE HCC CLOSURE Topic Due (Y or N) Comments Medicare Wellness PCP Follow up Colorectal Cancer Screening Controlling Blood Pressure A1C HCC Y Flu Vaccine Care Everywhere Reviewed MyChart Activation Updated Appointment Note Reason for Outreach Care Gap/HCC or Scheduling Wellness Visits Care Gaps due: N/A Patient Contacted: Unable or unnecessary to reach patient: HCC related Patient already scheduled Updated appointment notes Navigation Signature: Hal Holliday MA June 16, 2025 3:29 PM Allergies As of Date: 06/16/2025 Noted Allergy Reaction BACTRIM (SULFAMETHOXAZOLE-TRIMETH*06/10/2008 11 - Vomiting CODEINE 08/31/2005 11 - Vomiting FARXIGA (DAPAGLIFLOZIN) 09/12/2024 8 - GI Upset PREDNISONE 09/05/2012 11 - Vomiting STATINS ([id number] REDUCTAS*05/25/2009 5 - Intolerance ULTRAM (TRAMADOL HCL) 01/17/2013 11 - Vomiting Date Reviewed: 05/14/2025 Reviewed by: Ishmael Davis APRN.TRANSCRIPT EVALUATOR - Fully Assessed Reason for Visit: Population Health Navigation Outreach [3910] Cmt: JOSE OCONNOR BEN PCSA Prescriptions as of 06/16/2025 - amLODIPine (NORVASC) 10 mg tablet Take [...] 3 times daily Insulin Yes - Insulin [place], Disposable, (BD ULTRA-FINE JOHN PEN NEEDLE) 32 [...] once daily. Problem List As Of Date 06/16/2025 Noted Resolved Unspecified cardiovascular disease [I25.10] 03/21/2017 [...] 3b chronic kidney disease (HCC) [N18.32] 01/20/2022 Hypertensi (more content not included)...[facility]08-11-2025 Progress note Author Jack Mae [facility] Note Date/Time June 15, 2025 5: 31pm [facility] Medical Records Department [address] [place] [address] Progress Note - Hospitalist 06/15/25 1704 MR#: [id number] Acct: [id number] Name: CICI WOODWARD Rep #:[id number] : 1935 89 From: Jack simpson MD PCP: Dr. Anju Pearce MD Status:AD M IN [id number] Subjective Subjective Doing well, feels better than when she came in. Renal functions improved and ultrasound of her kidneys was negative Objective Data Objective Data Vital Signs: Vital Signs Temp Pulse Resp BP Pulse Ox O2 Del Method 97.9 F 76 16 164/55 H 93 Room Air 06/15/25 14:40 06/15/25 14:40 06/15/25 14:40 06/15/25 14:40 06/15/25 14:40 06/15/25 14:40 Oxygen Delivery Method Room Air Weight: 161 lb 6.054 oz Body Mass Index (BMI) 29.7 Intake & Output: Intake and Output for Last 24 Hours 06/14/25 06/15/25 06/16/25 03:59 03:59 03:59 Intake Total 3756.25 / 3756.25 1433.33 / 1433.33 Balance 3756.25 / 3756.25 1433.33 / 1433.33 Lab / Micro Data 06/15/25 06:16 06/15/25 06:16 Labs: Laboratory Results - last 24 hr 06/14/25 20:38: POC Glucose 162 H 06/15/25 06:16: WBC 10.0, RBC 3.04 L, Hgb 9.0 L, Hct 28.1 L, MCV 92.4, MCH 29.6,MCHC 32.0, RDW Std Deviation 48.2 H, RDW Coeff of Hernan 14.3, Plt Count 297, MPV 11.0, Immature Gran % (Auto) 0.400, Neut % (Auto) 74.8 H, Lymph % (Auto) 19.5, Green % (Auto) 4.8, Eos % (Auto) 0.0, Baso % (Auto) 0.5, Absolute Neuts (auto) 7.5, Absolute Lymphs (auto) 1.95, Nucleated RBC % 0, Sodium 137, Potassium 5.2 H, Chloride 109 H, Carbon Dioxide 16.4 L, Anion Gap 12, BUN 47 H, Creatinine 2.16H, Estim Creat Clear Calc 16.86 L, Est GFR (MDRD) Non-Af 22 L, BUN/Creatinine Ratio 21.6 H, Glucose 182 H, Hemoglobin A1c 7.2 H, Calcium 8.5, Phosphorus 3.7, Magnesium 2.2 06/15/25 06:45: POC Glucose 183 H 06/15/25 11:18: POC Glucose 176 H 06/15/25 16:20: POC Glucose 176 H Radiography Diagnostic Testing: Radiology Impression Renal Ultrasound 06/15/25 06:30 IMPRESSION: NORMAL RENAL ULTRASOUND. Reading Location: [place] [address] Rhythm Strip Rhythm Strip: Sinus Rhythm Rate: 72 Ectopy: None Physical Exam Narrative General: Alert, Oriented x3, Cooperative, No apparent distress HEENT: Atraumatic, PERRLA, EOMI, Normocephalic Oral: Moist Mucosa Neck: Supple, No JVD Lungs: Diminished, Normal air movement, No rhonchi, No wheeze, No rales Cardiovascular: Regular rate, Regular Rhythm, Normal S1, Normal S2, No murmurs Abdomen: Soft, Non Tender, Non-Distended, No Hepato-splenomegaly Extremities: No edema, Capillary Refill Less than 3 Seconds Skin: No rashes, No breakdown Musculoskeletal: No Tenderness to Palpation of Joints or Extremities Neurological: No focal neurological deficits, Motor Exam 5/5 strength throughout, Sensory exam intact to light touch and pain Psych/Mental Status: Normal Affect, Appropriate Assessment & Plan Assessment/Plan (1) SHA (acute kidney injury): PLAN: Plan 1. SHA with hyperkalemia due to dehydration poor oral intake in the setting of a recent UTI with antibiotics ? Unclear whether or not this has any intrinsic renal component from antibiotics, she discontinued these on ? She has admitted to having poor p.o. intake and does not like to drink water ? She has had improvement with IV fluids ? Will recheck BMP in the morning ? UA was negative, no UTI ? Will recheck potassium in the morning, bicarb is also low but this is likely anomalous due to wire testing machines 2. Essential HTN/HLD/CAD status post CABG/history of CVA ? Blood pressure stable ? Can resume her home blood pressure medications except for losartan pending renal function improvement ? Continue with Crestor As she had a previous basal ganglia infarction, continue with goal-directed therapy 3. DM2 ? Continue with insulin ? Accu-Cheks ACHS ? Will monitor make adjustments as necessary 4. Normocytic normochromic anemia ? Hemoglobin is 9, after 2.5 l of IV fluids ? Will check iron studies DVT: Heparin Charges/Coding Visit Charges Inpatient E&M: 66034 Subs Hosp L2 06/15/25 1731 <Electronically signed by Jack Mae MD> Cosigner Signature (if applicable): CC: ~ Signed [facility] Work Phone: 1(277) 433-336808-11-2025 Progress note [facility] Medical Records Department [address] [place] [id number] Progress Note - Hospitalist 06/15/25 1704 MR#: [id number] Acct: [id number] Name: CICI WOODWARD Rep #:[id number] : 1935 89 From: Jack simpson MD PCP: Dr. Anju Pearce MD Status:AD M IN Location: [facility] IH004-4 Subjective Subjective Doing well, feels better than when she came in. Renal functions improved and ultrasound of her kidneys was negative Objective Data Objective Data Vital Signs: Vital Signs Temp Pulse Resp BP Pulse Ox O2 Del Method 97.9 F 76 16 164/55 H 93 Room Air 06/15/25 14:40 06/15/25 14:40 06/15/25 14:40 06/15/25 14:40 06/15/25 14:40 06/15/25 14:40 Oxygen Delivery Method Room Air Weight: 161 lb 6.054 oz Body Mass Index (BMI) 29.7 Intake & Output: Intake and Output for Last 24 Hours 06/14/25 06/15/25 06/16/25 03:59 03:59 03:59 Intake Total 3756.25 / 3756.25 1433.33 / 1433.33 Balance 3756.25 / 3756.25 1433.33 / 1433.33 Lab / Micro Data 06/15/25 06:16 06/15/25 06:16 Labs: Laboratory Results - last 24 hr 06/14/25 20:38: POC Glucose 162 H 06/15/25 06:16: WBC 10.0, RBC 3.04 L, Hgb 9.0 L, Hct 28.1 L, MCV 92.4, MCH 29.6,MCHC 32.0, RDW Std Deviation 48.2 H, RDW Coeff of Hernan 14.3, Plt Count 297, MPV 11.0, Immature Gran % (Auto) 0.400, Neut% (Auto) 74.8 H, Lymph % (Auto) 19.5, Green % (Auto) 4.8, Eos % (Auto) 0.0, Baso % (Auto) 0.5, Absolute Neuts (auto) 7.5, Absolute Lymphs (auto) 1.95, Nucleated RBC % 0, Sodium 137, Potassium 5.2 H, Chloride 109 H, Carbon Dioxide 16.4 L, Anion Gap 12, BUN 47 H, Creatinine 2.16H, Estim Creat Clear Calc 16.86 L, Est GFR (MDRD) Non-Af 22 L, BUN/Creatinine Ratio 21.6 H, Glucose 182 H, Hemoglobin A1c 7.2 H, Calcium 8.5, Phosphorus 3.7, Magnesium 2.2 06/15/25 06:45: POC Glucose 183 H 06/15/25 11:18: POC Glucose 176 H 06/15/25 16:20: POC Glucose 176 H Radiography Diagnostic Testing: Radiology Impression Renal Ultrasound 06/15/25 06:30 IMPRESSION: NORMAL RENAL ULTRASOUND. Reading Location: [place] [address] Rhythm Strip Rhythm Strip: Sinus Rhythm Rate: 72 Ectopy: None Physical Exam Narrative General: Alert, Oriented x3, Cooperative, No apparent distress HEENT: Atraumatic, PERRLA, EOMI, Normocephalic Oral: Moist Mucosa Neck: Supple, No JVD Lungs: Diminished, Normal air movement, No rhonchi, No wheeze, No rales Cardiovascular: Regular rate, Regular Rhythm, Normal S1, Normal S2, No murmurs Abdomen: Soft, Non Tender, Non-Distended, No Hepato-splenomegaly Extremities: No edema, Capillary Refill Less than 3 Seconds Skin: No rashes, No breakdown Musculoskeletal: No Tenderness to Palpation of Joints or Extremities Neurological: No focal neurological deficits, Motor Exam 5/5 strength throughout, Sensory exam intact to light touch and pain Psych/Mental Status: Normal Affect, Appropriate Assessment & Plan Assessment/Plan (1) SHA (acute kidney injury): PLAN: Plan 1. SHA with hyperkalemia due to dehydration poor oral intake in the setting of a recent UTI with antibiotics ? Unclear whether or not this has any intrinsic renal component from antibiotics, she discontinued these on ? She has admitted to having poor p.o. intake and does not like to drink water ? She has had improvement with IV fluids ? Will recheck BMP in the morning ? UA was negative, no UTI ? Will recheck potassium in the morning, bicarb is also low but this is likely anomalous due to wire testing machines 2. Essential HTN/HLD/CAD status post CABG/history of CVA ? Blood pressure stable ? Can resume her home blood pressure medications except for losartan pending renal function improvement ? Continue with Crestor As she had a previous basal ganglia infarction, continue with goal-directed therapy 3. DM2 ? Continue with insulin ? Accu-Cheks ACHS ? Will monitor make adjustments as necessary 4. Normocytic normochromic anemia ? Hemoglobin is 9, after 2.5 l of IV fluids ? Will check iron studies DVT: Heparin Charges/Coding Visit Charges Inpatient E&M: 51311 Subs Hosp L2 06/15/25 1736 Cosigner Signature (if applicable): CC: ~ Signed [facility]08-11-2025 Radiology Diagnostic study note [facility] Imaging Services [address] [place] [address] Kidney and Bladder MR#: [id number] Acct: [id number] Name: CICI WOODWARD Rep #: [id number] : 1935 F 89 From: Darrick Booker MD PCP: Dr. Anju Pearce MD Status: AD M IN Study:Kidney and Bladder Date of Exam: 0 06/15/25 Exam# [id number] Ordering Dr: Tamara Ivy MD PROCEDURE: KIDNEY AND BLADDER 06/15/2025 REASON FOR EXAM: SHA TECHNIQUE: KIDNEY AND BLADDER COMPARISON: None FINDINGS: Kidneys: Normal renal sizes, parenchymal thicknesses, and echotextures. [place]: No hydronephrosis. Cysts or Masses: No cysts or large solid renal masses. RIGHT Kidney Size: 10.7 cm x 6.1 cm x 4.1 cm Volume: 141.65 mL Cortical Thickness (if discernible): 12 mm (>6mm is normal) LEFT Kidney Size: 8.2 cm x 4.1 cm x 3.2 cm Volume: 56.21 mL Cortical Thickness (if discernible): 11 mm (>6mm is normal) Urinary bladder is unremarkable. US/Kidney and Bladder IMPRESSION: NORMAL RENAL ULTRASOUND. Reading Location: [place] [address] CC: Dr. Ventura Ivy MD; Dr. Anju Pearce MD ~ Document Scanner: Signed [facility]08-10-2025 History and physical note Author Ventura Ivy [facility] Note Date/Time June 14, 2025 12 :16pm [facility] Medical Records Department [address] [place] [address] H&P Exam - Hospitalist 06/14/25 1131 MR#: [id number] Acct: [id number] Name: CICI WOODWARD Rep #:[id number] : 1935 89 From: Ventura Ivy MD PCP: Dr. Anju Pearce MD Status:AD M IN Location: [facility] [id number] HPI - General General Date of Admission: 06/14/25 Date of Service: 06/14/25 Chief Complaint: Generalized weakness HPI Narrative CICI WOODWARD, is a 89 F who presents generalized weakness. Patient has multiple comorbidities including coronary artery disease status post CABG, chronic kidneydisease stage III presented to the emergency department with progressive generalized weakness. Per patient he had recently been treated for acute cystitis has not felt well since. Also did admit to decreased oral intake. Presented to the emergency department as a result found to have worsening kidneyfunction admitted to regular nursing floor as a case of SHA [facility] Medical History 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 Bilateral renal cysts [...] II diabetes mellitus Benign hypertension Home Medications ?Medication ?Instructions ?Recorded ?Last Taken ?Type allopurinol 100 mg tablet 100 mg PO DAILYCM gout 04/2801/03/20 History aspirin 81 mg chewable tablet 81 mg PO DAILY heart Unknown History calcium carbonate-vitamin D3 600 1 ea PO DAILY bones 0 01/17/20 Unknown History mg-125 unit tablet metoprolol succinate 100 mg 100 mg PO DAILY bp 0 Unknown History tablet,extended release 24 hr propylene glycol 0.6 % eye drops 1 drp ophthalmic (eye ) QHS Dry Eyes 06/28/20 Unknown History (Systane Balance) losartan 50 mg tablet 50 mg PO QDAY 09/22/24 Unkno wn History amlodipine 10 mg tablet 10 mg PO QDAY 04/30/25 Unkno wn History insulin aspart U-100 100 unit/mL 7 unit subcut QAC dm 04/30/25 Unknown History (3 mL) subcutaneous pen rosuvastatin 5 mg tablet 5 mg PO QDAY 04/30/25 Unknow n History insulin glargine-yfgn 100 unit/mL 14 unit subcut QHS 0 06/14/25 Unknown History (3 mL) subcutaneous pen Allergy/AdvReac Type Severity Reaction Status Date / Time codeine AdvReac Nausea/Vom/ Verified 04/30/25 15:26 Diarrhea morphine AdvReac Nausea/Vom/ Verified 04/30/25 15:26 Diarrhea Family History Aunt Breast cancer Mother Heart disease Father Heart disease Surgical History History of cholecystectomy History of coronary artery bypass graft H/O angioplasty History of left heart catheterization tubal Social History number of children: 2 current occupational status: retired Smoking Status: Former smoker alcohol intake: never substance use type: does not use diet: diabetic caffeine: Yes Type: coffee Number of servings: 1 seatbelt use: always do you feel safe at home: Yes additional social history: 2 children adopted ROS ROS Narrative GENERAL: Generalized weakness HEENT: denies headache, sinus congestion, or drainage, dysphagia RESPIRATORY: denies cough, sputum production, shortness of breath, CARDIAC: denies chest pain, palpitations, orthopnea, PND GASTROINTESTINAL: Nausea but no vomiting GENITOURINARY: denies dysuria, urgency, frequency, heamaturia EXTREMITY: denies swelling MUSCULOSKELETAL: denies current joint pain or tenderness NEUROLOGIC: denies focal numbness, weakness, tingling HEMATOLOGIC: denies easy bruising and/or hemorrhage INTEGUMENT: denies rashes PSYCHIATRIC: denies suicidal or homicidal ideation Vital Signs Vital Signs Vital Signs: 06/14/25 08:17 06/14/25 08:19 06/14/25 08:37 Temperature 98.6 F 98.6 F Temperature Source Temporal Oral Pulse Rate 74 74 Respiratory Rate 16 16 Respiratory Effort Normal Blood Pressure 145/83 H 145/83 H Blood Pressure Mean 103 103 Pulse Ox 96 96 Oxygen Delivery Method Room Air Room Air 06/14/25 09:19 06/14/25 10:19 06/14/25 11:00 Temperature 98.6 F 98.6 F 98.6 F Temperature Source Oral Oral Oral Pulse Rate 69 69 68 Respiratory Rate 22 H 19 H 24 H Respiratory Effort Blood Pressure 168/64 H 160/72 H 165/62 H Blood Pressure Mean 98 101 96 Pulse Ox 97 97 Oxygen Delivery Method Room Air 06/14/25 11:29 Temperature 98.6 F Temperature Source Pulse Rate 68 Respiratory Rate 24 H Respiratory Effort Blood Pressure 165/62 H Blood Pressure Mean 96 Pulse Ox 97 Oxygen Delivery Method Weight Weight: 76.7 kg Body Mass Index (BMI) 29.9 Physical Exam Narrative GENERAL: cooperative HEENT: Atraumatic; normocephalic EYES; Anicteric, Normal Conjunctiva NECK; supple, normal thyroid, RESPIRATORY: Diminished to auscultation CARDIOVASCULAR: Regular S1 S2, GI: soft, normoactive bowel sounds, : No Renal angle tenderness; EXTREMITIES: No edema, no clubbing, MUSCULOSKELETAL: no muscle wasting NEURO: Awake; no lateralizing signs. SKIN: No Rash PSYCH; Flat affect Results Lab / Micro Data 06/14/25 08:52 06/14/25 08:52 Labs: Laboratory Results - last 24 hr 06/14/25 08:52: WBC 12.3 H, RBC 3.33 L, Hgb 9.8 L, Hct 30.2 L, MCV 90.7, MCH 29.4, MCHC 32.5, RDW Std Deviation 46.9 H, RDW Coeff of Hernan 14.0, Plt Count 342,MPV 10.5, Immature Gran % (Auto) 0.300, Neut % (Auto) 77.1 H, Lymph % (Auto) 16.9 L, Green % (Auto) 4.9, Eos % (Auto) 0.3, Baso % (Auto) 0.5, Absolute Neuts (auto) 9.5 H, Absolute Lymphs (auto) 2.09, Nucleated RBC % 0, Sodium 136, Potassium 4.7, Chloride 105, Carbon Dioxide 17.1 L, Anion Gap 15, BUN 53 H, Creatinine 2.46 H, Estim Creat Clear Calc 15.50 L, Est GFR (MDRD) Non-Af 18 L, BUN/Creatinine Ratio 21.4 H, Glucose 156 H, Calcium 9.5, Total Bilirubin 0.51, AST 23, ALT 19, Alkaline Phosphatase 94, Total Protein 7.1, Albumin 4.2, Globulin 2.9, Albumin/Globulin Ratio 1.4 06/14/25 10:02: POC Glucose 120 H 06/14/25 10:05: Urine Color Yellow, Urine Clarity Clear, Urine pH 6.0, Ur Specific [place] 1.020, Urine Protein 500 H, Urine Glucose (UA) 100 H, Urine Ketones Negative, Urine Occult Blood 10 H, Urine Nitrite Negative, Urine Bilirubin Negative, Urine Urobilinogen Normal, Ur Leukocyte Esterase Negative, Urine RBC 0-5 SEEN, Urine WBC 0-5 SEEN, Ur Squamous Epith Cells 0-5 SEEN, Urine Bacteria 0 SEEN, Hyaline Casts 0-5 SEEN, Urine Mucus 0 SEEN Rhythm Strip Rhythm Strip: Sinus Rhythm Rate: 72 Ectopy: None Imaging Radiology Impression Chest X-Ray 06/14/25 09:05 IMPRESSION: Cardiomegaly with mild vascular congestion. Reading Location: [facility] Assessment & Plan Assessment/Plan (1) SHA (acute kidney injury): PLAN: Plan Patient is an 89-year-old female presenting with progressive generalized weakness 1. SHA ? Superimposed on chronic kidney disease stage III. This is suspected to be secondary to decreased oral intake patient started on IV fluid with subsequent monitoring of electrolytes ordered. Also ordered kidney ultrasound to rule out obstructive uropathy 2. Hypertension ? Blood pressure controlled, home medications continued with dose adjustment as needed 3. Diabetes mellitus type II -patient's oral hypoglycemics held. Placed on long acting insulin, Accu-Cheks a.c. and at bedtime and covered with sliding scale insulin 4. Class I obesity with BMI of 30 ? Weight loss advised 5. Dyslipidemia ?Patient is on statin therapy, continued at home dose 6. Coronary artery disease ? Treated previous CABG(GHOSH to diagonal sequenced to LAD, SVG to OM sequenced to RPL) in January 2020. Patient remains on guideline directed medical therapy 7. Paroxysmal atrial fibrillation ? Per history patient has no recollection 8. 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 History of intracranial meningioma ? Treated with laser therapy at the [facility] 10. DVT prophylaxis ? Subcu heparin 11. Physical deconditioning ? Requested for PT OT eval and nephrology social worker to assist with discharge planning Time spent in the patient's overall evaluation,decision-making process, review of diagnostic data, adjustment of management, discussion with other providers, nursing nursing and ancillary staff involved in patient's care documentation, 75 Minutes Advance planning; did discuss with the patient and family (her daughter who appears to be an RN) regarding advanced directives as well as CODE STATUS. Did explain the various scenarios involved ( FULL CODE, DNR CCA, DNR CCA with no intubation, and DNR CC and what each meant) patient elected to remain full code with CPR and intubation if warranted. Order was placed. Time spent on discussion 16 minutes. Charges/Coding Multi Select Codes Visit Charges Visit Charges: 94963 Init Hosp L3 Hospitalists' Procedures Procedures: 51135 Advncd Care Plan 30 Min 06/14/25 1216 <Electronically signed by Ventura Ivy MD> Cosigner Signature (if applicable): CC: Dr. Ventura Ivy MD; Dr. Anju Pearce MD~ Signed [facility] Work Phone: [phone] 705-755408-10-2025 Discharge summary Author Homero Mendosa [facility] Note Date/Time June 14, 2025 11 :15am [facility] Medical Records Department [address] [place] [address] Emergency Department Summary 06/14/25 MR#: [id number] Acct: [id number] Name: CICI WOODWARD Rep #:[id number] : 1935 89 From: Homero Mendosa MD PCP: Dr. Anju Pearce MD Status:RE G ER Location: ED HPI History of Present Illness Chief Complaint: General Illness Detail of Chief Complaint: Just not feeling well. Informant: patient and family Onset/Context/Timing Onset: Weeks Context: Gradual Onset Timing: Continuous Current Severity: Mild Maximum Severity: Mild Narrative Narrative: 89-year-old female who is independently at home history of prior stroke, chronickidney disease, diabetes, hypertension and prior ND with CABG. States she just feels generally weak. She was seen at the [facility] urgent care. Diagnosed with a possible UTI started on cephalexin 254 times a day for 5 days. But the urine culture came back negative. She finished the antibiotics because she was pretty far into the course. Denies currently any abdominal pain. No chest pain or shortness of breath. Denies any dysuria. She has had some mild diarrhea. Denies any melena. 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 Bilateral renal cysts [...] II diabetes mellitus Benign hypertension Home Medications ?Medication ?Instructions ?Recorded ?Last Taken ?Type allopurinol 100 mg tablet 100 mg PO DAILYCM gout 04/2801/03/20 History aspirin 81 mg chewable tablet 81 mg PO DAILY heart Unknown History calcium carbonate-vitamin D3 600 1 ea PO DAILY bones 0 01/17/20 Unknown History mg-125 unit tablet metoprolol succinate 100 mg 100 mg PO DAILY bp 0 Unknown History tablet,extended release 24 hr insulin glargine 100 unit/mL (3 9 unit subcut DAILY Unknown History mL) subcutaneous pen propylene glycol 0.6 % eye drops 1 drp ophthalmic (eye ) DAILY PRN 06/28/20 Unknown History (Systane Balance) Dry Eyes losartan 50 mg tablet 50 mg PO QDAY 09/22/24 Unkno wn History amlodipine 10 mg tablet 10 mg PO QDAY 04/30/25 Unkno wn History insulin aspart U-100 100 unit/mL 7 unit subcut QAC dm 04/30/25 Unknown History (3 mL) subcutaneous pen rosuvastatin 5 mg tablet 5 mg PO QDAY 04/30/25 Unknow n History Allergy/AdvReac Type Severity Reaction Status Date / Time codeine AdvReac Nausea/Vom/ Verified 04/30/25 15:26 Diarrhea morphine AdvReac Nausea/Vom/ Verified 04/30/25 15:26 Diarrhea Family History Aunt Breast cancer Mother Heart disease Father Heart disease Surgical History History of cholecystectomy History of coronary artery bypass graft H/O angioplasty History of left heart catheterization tubal Social History number of children: 2 current occupational status: retired Smoking Status: Former smoker alcohol intake: never substance use type: does not use diet: diabetic caffeine: Yes Type: coffee Number of servings: 1 seatbelt use: always do you feel safe at home: Yes additional social history: 2 children adopted ROS ROS ED ROS Narrative Just not feeling well. Weakness. Denies nausea or vomiting. Denies fever. Denies dysuria. No cough or chest pain. No shortness of breath. No abdominal pain. Has had some diarrhea. Constitutional Constitutional ED: Denies chills or fever(s) Eyes Eyes: Denies blurry vision ENT ENT ED: Denies ear pain Cardiovascular Cardiovascular: Denies chest pain Respiratory/Chest Respiratory/Chest: Denies cough or dyspnea Gastrointestinal Gastrointestinal: Reports diarrhea; Denies abdominal pain, constipation, melena,nausea or vomiting Genitourinary Genitourinary ED: Denies dysuria or hematuria Musculoskeletal Musculoskeletal: Denies arthralgias Integumentary Denies abscess Neurologic Neurologic: Denies headache(s) Psychiatric Psychiatric: Denies anxiety Endocrine Endocrinology: Denies cold intolerance Hematologic/Lymphatic Hematologic/Lymphatic: Reports none Allergic/Immunologic Allergic/Immunologic ED: Denies mouth swelling, tongue swelling or urticaria EXAM Physical Exam Narrative Exam Narrative: Well-appearing 89-year-old female. Family at bedside. Vital signs are stable and afebrile. No acute distress. H EENT exam pupils round react light. No facial droop. Extraocular motions are intact. Normal speech. Mildly dry mucous membranes. No trauma. Neck nontender no lymphadenopathy. Back nontender. Lungs clear to auscultation bilaterally. Heart regular rhythm rate about 75 no murmur. Chest wall and ribs nontender. Abdomen soft, nontender, nondistended, normal bowel sounds without peritoneal signs. She has no reproducible abdominal tenderness in either upper or lower quadrants. There is no hernia or mass. No obstruction. Both the right upper and right lower quadrants are nontender. Moving all 4 extremities. Normal rn progressive care strength bilaterally. Normal dorsi plantarflexion. Calves are nontender without edema. Back nontender. Neurologically she is awake and alert. Answering questions following commands. No focal motor deficits. Very benign exam. Const Vital Signs: 06/14/25 08:17 06/14/25 08:19 06/14/25 08:37 Temperature 98.6 F 98.6 F Temperature Source Temporal Oral Pulse Rate 74 74 Respiratory Rate 16 16 Respiratory Effort Normal Blood Pressure 145/83 H 145/83 H Blood Pressure Mean 103 103 Pulse Ox 96 96 Oxygen Delivery Method Room Air Room Air 06/14/25 09:19 06/14/25 10:19 Temperature 98.6 F 98.6 F Temperature Source Oral Oral Pulse Rate 69 69 Respiratory Rate 22 H 19 H Respiratory Effort Blood Pressure 168/64 H 160/72 H Blood Pressure Mean 98 101 Pulse Ox 97 97 Oxygen Delivery Method Room Air Positive well nourished and well developed; Negative for cachectic, contracturesor unkempt General Appearance ED: well developed and NAD; Negative for unkempt, cachectic, contractures, cyanotic, diaphoretic or pallor Nutritional Appearance: Negative for cachectic HEENT Reports moist mucous membranes Negative for trauma or tenderness Eyes PERRL and EOMs intact bilaterally General Eye ED: Negative for pale conjunctiva or scleral icterus Neck no lymphadenopathy, supple and no JVD Chest Wall inspection of chest normal and palpation of chest normal Resp normal respiratory effort and clear to auscultation bilaterally Cardio regular rate, regular rhythm, S1 normal heart sound, S2 normal heart sound and no murmurs GI normal to inspection, nondistended, normoactive bowel sounds, non-tender, non-distended and no masses Auscultation: normoactive bowel sounds Palpation: soft; Negative for tender, guarding, splenomegaly, mass or rebound tenderness present Back/Spine no CVA tenderness General Back: Negative for CVA tenderness Cervical Spine: Negative for cervical spine tenderness Thoracic Spine / Upper Back: Negative for thoracic spinal tenderness Lumbar Spine / Lower Back: Negative for lumbar spinal tenderness Extremity normal to inspection General Extremety ED: Negative for edema or tenderness General Extremity: Negative for edema Neuro oriented x3 and CN's II-XII intact bilaterally Sensorium / Orientation: alert Motor Exam: strength 5/5 throughout Psych mental status grossly normal Appearance: Negative for unkempt Attitude: No agitated Mood & Affect: Negative for depressed, anxious or tearful Skin no rashes or lesions noted and no wounds General Skin Exam: Negative for jaundice or pallor Lesions: No lesion noted Rashes: No rashes noted Trauma: Negative for abrasion Wounds: Negative for wounds noted MDM MDM MDM Narrative Medical decision making narrative: 89-year-old female just not feeling well benign exam. She may be mildly dehydrated from diarrhea. Screening labs will be obtained she will be treated with IV fluids. Repeat exam patient is doing well at 11 AM. I discussed all of her test resultswith both her and her family at bedside. I spoke to our hospitalist given that her creatinine is gone from 1 9-2.46 and her age she felt most appropriate to admit her to the hospital observe her overnight recheck her kidney function tomorrow. I did already give her a liter normal saline. Patient and family are comfortable the plan. I also have a primary care physician in the [facility] on page to ensure close follow-up after her discharge.. Lab Data Attestation: I reviewed the patient's lab results. Lab results narrative: CBC shows white count 12.3 H&H 9.8 and 30. Platelets 342. Electrolytes show sodium 136. Gap 15. BUN and creatinine of 53 and 2.46. Glucose 156. Liver enzymes unremarkable. Urinalysis shows no white or red cells no nitrites. No bacteria. Chest x-ray chronic changes. Labs: Laboratory Results - last 24 hr 06/14/25 06/14/25 06/14/25 08:52 10:02 10:05 WBC 12.3 H RBC 3.33 L Hgb 9.8 L Hct 30.2 L MCV 90.7 MCH 29.4 MCHC 32.5 RDW Std Deviation 46.9 H RDW Coeff of Hernan 14.0 Plt Count 342 MPV 10.5 Immature Gran % (Auto) 0.300 Neut % (Auto) 77.1 H Lymph % (Auto) 16.9 L Green % (Auto) 4.9 Eos % (Auto) 0.3 Baso % (Auto) 0.5 Absolute Neuts (auto) 9.5 H Absolute Lymphs (auto) 2.09 Nucleated RBC % 0 Sodium 136 Potassium 4.7 Chloride 105 Carbon Dioxide 17.1 L Anion Gap 15 BUN 53 H Creatinine 2.46 H Estim Creat Clear Calc 15.50 L Est GFR (MDRD) Non-Af 18 L BUN/Creatinine Ratio 21.4 H Glucose 156 H Calcium 9.5 Total Bilirubin 0.51 AST 23 ALT 19 Alkaline Phosphatase 94 Total Protein 7.1 Albumin 4.2 Globulin 2.9 Albumin/Globulin Ratio 1.4 Urine Color Yellow Urine Clarity Clear Urine pH 6.0 Ur Specific [place] 1.020 Urine Protein 500 H Urine Glucose (UA) 100 H Urine Ketones Negative Urine Occult Blood 10 H Urine Nitrite Negative Urine Bilirubin Negative Urine Urobilinogen Normal Ur Leukocyte Esterase Negative Urine RBC 0-5 SEEN Urine WBC 0-5 SEEN Ur Squamous Epith Cells 0-5 SEEN Urine Bacteria 0 SEEN Hyaline Casts 0-5 SEEN Urine Mucus 0 SEEN POC Glucose 120 H Radiography Chest X-Ray - ED: Read by ED Physician, Read by Radiologist, Lungs, Mediastinum,Bony Structures, No Acute Disease, Chronic Changes and Cardiomegaly Diagnostic Testing: Clinical Impression(s) from Imaging Studies Chest X-Ray 06/14/25 09:05 IMPRESSION: Cardiomegaly with mild vascular congestion. Reading Location: [facility] Chest x-ray, 2 views, AP and lateral, interpreted by myself and the radiologist shows cardiomegaly with prior sternotomy and sternal wires. Mild basilar vascular congestion. No pneumonia. No effusion. Primarily chronic changes. Rhythm Strip Rhythm Strip: Sinus Rhythm Rate: 72 Ectopy: None EKG Initial EKG: Attestation: I personally reviewed and interpreted this EKG as follows: Interpretation: Sinus Rhythm, No Acute Injury Pattern and RBBB Comments: Normal sinus rhythm rate of 72 no acute signs of ND or ischemia. Right bundle branch block. Discharge Plan Triage Chief Complaint: General Illness ED Provider: Homero Mendosa Dx/Rx/DC Orders Clinical Impression: Chronic kidney disease, Acute dehydration, Diarrhea, History of diabetes mellitus, History of hypertension Prescriptions: No Action insulin glargine 100 unit/mL (3 mL) insulin pen 9 unit subcut DAILY Systane Balance 0.6 % drops 1 drp OPHTHALMIC DAILY PRN (Reason: Dry Eyes) losartan 50 mg tablet 50 mg PO QDAY rosuvastatin 5 mg tablet 5 mg PO QDAY amlodipine 10 mg tablet 10 mg PO QDAY allopurinol 100 MG tablet 100 mg PO DAILYCM Patient Comments: GOUT metoprolol succinate 100 MG tablet extended release 24 hr 100 mg PO DAILY aspirin 81 MG tablet,chewable 81 mg PO DAILY calcium carbonate-vitamin D3 1 EACH tablet 1 ea PO DAILY insulin aspart U-100 100 unit/mL (3 mL) insulin pen 7 unit subcut QAC Rx Instructions: 8 units AM, 3 units, 6 units dinner Primary Care Provider: Anju Pearce Referrals: Anju Pearce MD [Primary Care Provider] - Print Language: Moldovan Disposition Disposition: Acute Care Hospital [facility] What to do if you have Problems For any increased pain, shortness of breath, bleeding, nausea or vomiting, chestpain, or any unexpected problems, contact your Primary Care Provider. Call [facility] ([phone]) or report to the closest Emergency Room. Call 911 if necessary. 06/14/25 1115 <Electronically signed by Homero Mendosa MD> Cosigner Signature (if applicable): CC: Dr. Anju Pearce MD ~ Signed [facility] Work Phone: [phone] 714-852208-10-2025 History and physical note [facility] Medical Records Department [address] [place] [address] H&P Exam - Hospitalist 06/14/25 1131 MR#: [id number] Acct: [id number] Name: CICI WOODWARD Rep #:[id number] : 1935 89 From: Ventura Ivy MD PCP: Dr. Anju Pearce MD Status:AD M IN [place] [facility] [place] [id number] HPI - General General Date of Admission: 06/14/25 Date of Service: 06/14/25 Chief Complaint: Generalized weakness HPI Narrative CICI WOODWARD, is a 89 F who presents generalized weakness. Patient has multiple comorbidities including coronary artery disease status post CABG, chronic kidneydisease stage III presented to the emergency department with progressive generalized weakness. Per patient he had recently been treated for acute cystitis has not felt well since. Also did admit to decreased oral intake. Presented to the emergency department as a result found to have worsening kidneyfunction admitted to regular nursing floor as a case of SHA [facility] Medical History 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 Bilateral renal cysts [...] II diabetes mellitus Benign hypertension Home Medications ?Medication ?Instructions ?Recorded ?Last Taken ?Type allopurinol 100 mg tablet 100 mg PO DAILYCM gout 04/2801/03/20 History aspirin 81 mg chewable tablet 81 mg PO DAILY heart Unknown History calcium carbonate-vitamin D3 600 1 ea PO DAILY bones 0 01/17/20 Unknown History mg-125 unit tablet metoprolol succinate 100 mg 100 mg PO DAILY bp 0 Unknown History tablet,extended release 24 hr propylene glycol 0.6 % eye drops 1 drp ophthalmic (eye ) QHS Dry Eyes 06/28/20 Unknown History (Systane Balance) losartan 50 mg tablet 50 mg PO QDAY 09/22/24 Unkno wn History amlodipine 10 mg tablet 10 mg PO QDAY 04/30/25 Unkno wn History insulin aspart U-100 100 unit/mL 7 unit subcut QAC dm 04/30/25 Unknown History (3 mL) subcutaneous pen rosuvastatin 5 mg tablet 5 mg PO QDAY 04/30/25 Unknow n History insulin glargine-yfgn 100 unit/mL 14 unit subcut QHS 0 06/14/25 Unknown History (3 mL) subcutaneous pen Allergy/AdvReac Type Severity Reaction Status Date / Time codeine AdvReac Nausea/Vom/ Verified 04/30/25 15:26 Diarrhea morphine AdvReac Nausea/Vom/ Verified 04/30/25 15:26 Diarrhea Family History Aunt Breast cancer Mother Heart disease Father Heart disease Surgical History History of cholecystectomy History of coronary artery bypass graft H/O angioplasty History of left heart catheterization tubal Social History number of children: 2 current occupational status: retired Smoking Status: Former smoker alcohol intake: never substance use type: does not use diet: diabetic caffeine: Yes Type: coffee Number of servings: 1 seatbelt use: always do you feel safe at home: Yes additional social history: 2 children adopted ROS ROS Narrative GENERAL: Generalized weakness HEENT: denies headache, sinus congestion, or drainage, dysphagia RESPIRATORY: denies cough, sputum production, shortness of breath, CARDIAC: denies chest pain, palpitations, orthopnea, PND GASTROINTESTINAL: Nausea but no vomiting GENITOURINARY: denies dysuria, urgency, frequency, heamaturia EXTREMITY: denies swelling MUSCULOSKELETAL: denies current joint pain or tenderness NEUROLOGIC: denies focal numbness, weakness, tingling HEMATOLOGIC: denies easy bruising and/or hemorrhage INTEGUMENT: denies rashes PSYCHIATRIC: denies suicidal or homicidal ideation Vital Signs Vital Signs Vital Signs: 06/14/25 08:17 06/14/25 08:19 06/14/25 08:37 Temperature 98.6 F 98.6 F Temperature Source Temporal Oral Pulse Rate 74 74 Respiratory Rate 16 16 Respiratory Effort Normal Blood Pressure 145/83 H 145/83 H Blood Pressure Mean 103 103 Pulse Ox 96 96 Oxygen Delivery Method Room Air Room Air 06/14/25 09:19 06/14/25 10:19 06/14/25 11:00 Temperature 98.6 F 98.6 F 98.6 F Temperature Source Oral Oral Oral Pulse Rate 69 69 68 Respiratory Rate 22 H 19 H 24 H Respiratory Effort Blood Pressure 168/64 H 160/72 H 165/62 H Blood Pressure Mean 98 101 96 Pulse Ox 97 97 Oxygen Delivery Method Room Air 06/14/25 11:29 Temperature 98.6 F Temperature Source Pulse Rate 68 Respiratory Rate 24 H Respiratory Effort Blood Pressure 165/62 H Blood Pressure Mean 96 Pulse Ox 97 Oxygen Delivery Method Weight Weight: 76.7 kg Body Mass Index (BMI) 29.9 Physical Exam Narrative GENERAL: cooperative HEENT: Atraumatic; normocephalic EYES; Anicteric, Normal Conjunctiva NECK; supple, normal thyroid, RESPIRATORY: Diminished to auscultation CARDIOVASCULAR: Regular S1 S2, GI: soft, normoactive bowel sounds, : No Renal angle tenderness; EXTREMITIES: No edema, no clubbing, MUSCULOSKELETAL: no muscle wasting NEURO: Awake; no lateralizing signs. SKIN: No Rash PSYCH; Flat affect Results Lab / Micro Data 06/14/25 08:52 06/14/25 08:52 Labs: Laboratory Results - last 24 hr 06/14/25 08:52: WBC 12.3 H, RBC 3.33 L, Hgb 9.8 L, Hct 30.2 L, MCV 90.7, MCH 29.4, MCHC 32.5, RDW Std Deviation 46.9 H, RDW Coeff of Hernan 14.0, Plt Count 342,MPV 10.5, Immature Gran % (Auto) 0.300, Neut % (Auto) 77.1 H, Lymph % (Auto) 16.9 L, Green % (Auto) 4.9, Eos % (Auto) 0.3, Baso % (Auto) 0.5, Absolute Neuts (auto) 9.5 H, Absolute Lymphs (auto) 2.09, Nucleated RBC % 0, Sodium 136, Potassium 4.7, Chloride 105, Carbon Dioxide 17.1 L, Anion Gap 15, BUN 53 H, Creatinine 2.46 H, Estim Creat ClearCalc 15.50 L, Est GFR (MDRD) Non-Af 18 L, BUN/Creatinine Ratio 21.4 H, Glucose 156 H, Calcium 9.5, Total Bilirubin 0.51, AST 23, ALT 19, Alkaline Phosphatase 94, Total Protein 7.1, Albumin 4.2, Globul in 2.9, Albumin/Globulin Ratio 1.4 06/14/25 10:02: POC Glucose 120 H 06/14/25 10:05: Urine Color Yellow, Urine Clarity Clear, Urine pH 6.0, Ur Specific [place] 1.020, Urine Protein 500 H, Urine Glucose (UA) 100 H, Urine Ketones Negative, Urine Occult Blood 10 H, UrineNitrite Negative, Urine Bilirubin Negative, Urine Urobilinogen Normal, Ur Leukocyte Esterase Negative, Urine RBC 0-5 SEEN, Urine WBC 0-5 SEEN, Ur Squamous Epith Cells 0-5 SEEN, Urine Bacteria 0 SEEN,Hyaline Casts 0-5 SEEN, Urine Mucus 0 SEEN Rhythm Strip Rhythm Strip: Sinus Rhythm Rate: 72 Ectopy: None Imaging Radiology Impression Chest X-Ray 06/14/25 09:05 IMPRESSION: Cardiomegaly with mild vascular congestion. Reading Location: [id number] Assessment & Plan Assessment/Plan (1) SHA (acute kidney injury): PLAN: Plan Patient is an 89-year-old female presenting with progressive generalized weakness 1. SHA ? Superimposed on chronic kidney disease stage III. This is suspected to be secondary to decreased oral intake patient started on IV fluid with subsequent monitoring of electrolytes ordered. Also ordered kidney ultrasound to rule out obstructive uropathy 2. Hypertension ? Blood pressure controlled, home medications continued with dose adjustment as needed 3. Diabetes mellitus type II -patient's oral hypoglycemics held. Placed on long acting insulin, Accu-Cheks a.c. and at bedtime and covered with sliding scale insulin 4. Class I obesity with BMI of 30 ? Weight loss advised 5. Dyslipidemia ?Patient is on statin therapy, continued at home dose 6. Coronary artery disease ? Treated previous CABG(GHOSH to diagonal sequenced to LAD, SVG to OM sequenced to RPL) in January 2020. Patient remains on guideline directed medical therapy 7. Paroxysmal atrial fibrillation ? Per history patient has no recollection 8. 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 History of intracranial meningioma ? Treated with laser therapy at the [facility] 10. DVT prophylaxis ? Subcu heparin 11. Physical deconditioning ? Requested for PT OT eval and nephrology social worker to assist with discharge planning Time spent in the patient's overall evaluation,decision-making process, review of diagnostic data, adjustment of management, discussion with other providers, nursing nursing and ancillary staff involved in patient's care documentation, 75 Minutes Advance planning; did discuss with the patient and family (her daughter who appears to be an RN) regarding advanced directives as well as CODE STATUS. Did explain the various scenarios involved ( FULL CODE, DNR CCA, DNR CCA with no intubation, and DNR CC and what each meant) patient elected to remain full code with CPR and intubation if warranted. Order was placed. Time spent on discussion 16 minutes. Charges/Coding Multi Select Codes Visit Charges Visit Charges: 10134 Init Hosp L3 Hospitalists' Procedures Procedures: 89054 Advncd Care Plan 30 Min 06/14/25 1216 Cosigner Signature (if applicable): CC: Dr. Ventura Ivy MD; Dr. Anju Pearce MD~ Signed [facility]08-10-2025 Discharge summary [facility] Medical Records Department [address] [place] [address] Emergency Department Summary 06/14/25 MR#: [id number] Acct: [id number] Name: CICI WOODWARD Rep #:[id number] : 1935 89 From: Homero Mendosa MD PCP: Dr. Anju Pearce MD Status:RE G ER Location: ED HPI History of Present Illness Chief Complaint: General Illness Detail of Chief Complaint: Just not feeling well. Informant: patient and family Onset/Context/Timing Onset: Weeks Context: Gradual Onset Timing: Continuous Current Severity: Mild Maximum Severity: Mild Narrative Narrative: 89-year-old female who is independently at home history of prior stroke, chronickidney disease, diabetes, hypertension and prior ND with CABG. States she just feels generally weak. She was seen at the [facility] urgent care. Diagnosed with a possible UTI started on cephalexin 254 times a day for 5 days. But the urine culture came back negative. She finished the antibiotics because she was pretty far into the course. Denies currently any abdominal pain. No chest pain or shortness of breath. Denies any dysuria. She has had some mild diarrhea. Denies any melena. 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 Bilateral renal cysts [...] II diabetes mellitus Benign hypertension Home Medications ?Medication ?Instructions ?Recorded ?Last Taken ?Type allopurinol 100 mg tablet 100 mg PO DAILYCM gout 04/2801/03/20 History aspirin 81 mg chewable tablet 81 mg PO DAILY heart Unknown History calcium carbonate-vitamin D3 600 1 ea PO DAILY bones 0 01/17/20 Unknown History mg-125 unit tablet metoprolol succinate 100 mg 100 mg PO DAILY bp 0 Unknown History tablet,extended release 24 hr insulin glargine 100 unit/mL (3 9 unit subcut DAILY Unknown History mL) subcutaneous pen propylene glycol 0.6 % eye drops 1 drp ophthalmic (eye ) DAILY PRN 06/28/20 Unknown History (Systane Balance) Dry Eyes losartan 50 mg tablet 50 mg PO QDAY 09/22/24 Unkno wn History amlodipine 10 mg tablet 10 mg PO QDAY 04/30/25 Unkno wn History insulin aspart U-100 100 unit/mL 7 unit subcut QAC dm 04/30/25 Unknown History (3 mL) subcutaneous pen rosuvastatin 5 mg tablet 5 mg PO QDAY 04/30/25 Unknow n History Allergy/AdvReac Type Severity Reaction Status Date / Time codeine AdvReac Nausea/Vom/ Verified 04/30/25 15:26 Diarrhea morphine AdvReac Nausea/Vom/ Verified 04/30/25 15:26 Diarrhea Family History Aunt Breast cancer Mother Heart disease Father Heart disease Surgical History History of cholecystectomy History of coronary artery bypass graft H/O angioplasty History of left heart catheterization tubal Social History number of children: 2 current occupational status: retired Smoking Status: Former smoker alcohol intake: never substance use type: does not use diet: diabetic caffeine: Yes Type: coffee Number of servings: 1 seatbelt use: always do you feel safe at home: Yes additional social history: 2 children adopted ROS ROS ED ROS Narrative Just not feeling well. Weakness. Denies nausea or vomiting. Denies fever. Denies dysuria. No cough or chest pain. No shortness of breath. No abdominal pain. Has had some diarrhea. Constitutional Constitutional ED: Denies chills or fever(s) Eyes Eyes: Denies blurry vision ENT ENT ED: Denies ear pain Cardiovascular Cardiovascular: Denies chest pain Respiratory/Chest Respiratory/Chest: Denies cough or dyspnea Gastrointestinal Gastrointestinal: Reports diarrhea; Denies abdominal pain, constipation, melena,nausea or vomiting Genitourinary Genitourinary ED: Denies dysuria or hematuria Musculoskeletal Musculoskeletal: Denies arthralgias Integumentary Denies abscess Neurologic Neurologic: Denies headache(s) Psychiatric Psychiatric: Denies anxiety Endocrine Endocrinology: Denies cold intolerance Hematologic/Lymphatic Hematologic/Lymphatic: Reports none Allergic/Immunologic Allergic/Immunologic ED: Denies mouth swelling, tongue swelling or urticaria EXAM Physical Exam Narrative Exam Narrative: Well-appearing 89-year-old female. Family at bedside. Vital signs are stable and afebrile. No acutedistress. H EENT exam pupils round react light. No facial droop. Extraocular motions are intact. Normal speech. Mildly dry mucous membranes. No trauma. Neck nontender no lymphadenopathy. Back nontender. Lungs clear to auscultation bilaterally. Heart regular rhythm rate about 75 no murmur. Chest wall and ribs nontender. Abdomen soft, nontender, nondistended, normal bowel sounds without peritoneal signs. She has no reproducible abdominal tenderness in either upper or lower quadrants. There is no hernia or mass. No obstruction. Both the right upper and right lower quadrants are nontender. Movingall 4 extremities. Normal rn progressive care strength bilaterally. Normal dorsi plantarflexion. Calves are nontender without edema. Back nontender. Neurologically she is awake and alert. Answering questions following commands. No focal motor deficits. Very benign exam. Const Vital Signs: 06/14/25 08:17 06/14/25 08:19 06/14/25 08:37 Temperature 98.6 F 98.6 F Temperature Source Temporal Oral Pulse Rate 74 74 Respiratory Rate 16 16 Respiratory Effort Normal Blood Pressure 145/83 H 145/83 H Blood Pressure Mean 103 103 Pulse Ox 96 96 Oxygen Delivery Method Room Air Room Air 06/14/25 09:19 06/14/25 10:19 Temperature 98.6 F 98.6 F Temperature Source Oral Oral Pulse Rate 69 69 Respiratory Rate 22 H 19 H Respiratory Effort Blood Pressure 168/64 H 160/72 H Blood Pressure Mean 98 101 Pulse Ox 97 97 Oxygen Delivery Method Room Air Positive well nourished and well developed; Negative for cachectic, contracturesor unkempt General Appearance ED: well developed and NAD; Negative for unkempt, cachectic, contractures, cyanotic, diaphoretic or pallor Nutritional Appearance: Negative for cachectic HEENT Reports moist mucous membranes Negative for trauma or tenderness Eyes PERRL and EOMs intact bilaterally General Eye ED: Negative for pale conjunctiva or scleral icterus Neck no lymphadenopathy, supple and no JVD Chest Wall inspection of chest normal and palpation of chest normal Resp normal respiratory effort and clear to auscultation bilaterally Cardio regular rate, regular rhythm, S1 normal heart sound, S2 normal heart sound and no murmurs GI normal to inspection, nondistended, normoactive bowel sounds, non-tender, non- distended and no masses Auscultation: normoactive bowel sounds Palpation: soft; Negative for tender, guarding, splenomegaly, mass or rebound tenderness present Back/Spine no CVA tenderness General Back: Negative for CVA tenderness Cervical Spine: Negative for cervical spine tenderness Thoracic Spine / Upper Back: Negative for thoracic spinal tenderness Lumbar Spine / Lower Back: Negative for lumbar spinal tenderness Extremity normal to inspection General Extremety ED: Negative for edema or tenderness General Extremity: Negative for edema Neuro oriented x3 and CN's II-XII intact bilaterally Sensorium / Orientation: alert Motor Exam: strength 5/5 throughout Psych mental status grossly normal Appearance: Negative for unkempt Attitude: No agitated Mood & Affect: Negative for depressed, anxious or tearful Skin no rashes or lesions noted and no wounds General Skin Exam: Negative for jaundice or pallor Lesions: No lesion noted Rashes: No rashes noted Trauma: Negative for abrasion Wounds: Negative for wounds noted MDM MDM MDM Narrative Medical decision making narrative: 89-year-old female just not feeling well benign exam. She may be mildly dehydrated from diarrhea.Screening labs will be obtained she will be treated with IV fluids. Repeat exam patient is doing well at 11 AM. I discussed all of her test resultswith both her and her family at bedside. I spoke to our hospitalist given that her creatinine is gone from 1 9-2.46 and her age she felt most appropriate to admit her to the hospital observe her overnight recheck her kidney function tomorrow. I did already give her a liter normal saline. Patient and family are comfortable the plan. I also have a primary care physician in the [facility] on page to ensure close follow-up after her discharge.. Lab Data Attestation: I reviewed the patient's lab results. Lab results narrative: CBC shows white count 12.3 H&H 9.8 and 30. Platelets 342. Electrolytes show sodium 136. Gap 15. BUN and creatinine of 53 and 2.46. Glucose 156. Liver enzymes unremarkable. Urinalysis shows no white or red cells no nitrites. No bacteria. Chest x-ray chronic changes. Labs: Laboratory Results - last 24 hr 06/14/25 06/14/25 06/14/25 08:52 10:02 10:05 WBC 12.3 H RBC 3.33 L Hgb 9.8 L Hct 30.2 L MCV 90.7 MCH 29.4 MCHC 32.5 RDW Std Deviation 46.9 H RDW Coeff of [place] 14.0 Plt Count 342 MPV 10.5 Immature Gran % (Auto) 0.300 Neut % (Auto) 77.1 H Lymph % (Auto) 16.9 L Green % (Auto) 4.9 Eos % (Auto) 0.3 Baso % (Auto) 0.5 Absolute Neuts (auto) 9.5 H Absolute Lymphs (auto) 2.09 Nucleated RBC % 0 Sodium 136 Potassium 4.7 Chloride 105 Carbon Dioxide 17.1 L Anion Gap 15 BUN 53 H Creatinine 2.46 H Estim Creat Clear Calc 15.50 L Est GFR (MDRD) Non-Af 18 L BUN/Creatinine Ratio 21.4 H Glucose 156 H Calcium 9.5 Total Bilirubin 0.51 AST 23 ALT 19 Alkaline Phosphatase 94 Total Protein 7.1 Albumin 4.2 Globulin 2.9 Albumin/Globulin Ratio 1.4 Urine Color Yellow Urine Clarity Clear Urine pH 6.0 Ur Specific [place] 1.020 Urine Protein 500 H Urine Glucose (UA) 100 H Urine Ketones Negative Urine Occult Blood 10 H Urine Nitrite Negative Urine Bilirubin Negative Urine Urobilinogen Normal Ur Leukocyte Esterase Negative Urine RBC 0-5 SEEN Urine WBC 0-5 SEEN Ur Squamous Epith Cells 0-5 SEEN Urine Bacteria 0 SEEN Hyaline Casts 0-5 SEEN Urine Mucus 0 SEEN POC Glucose 120 H Radiography Chest X-Ray - ED: Read by ED Physician, Read by Radiologist, Lungs, Mediastinum,Bony Structures, NoAcute Disease, Chronic Changes and Cardiomegaly Diagnostic Testing: Clinical Impression(s) from Imaging Studies Chest X-Ray 06/14/25 09:05 IMPRESSION: Cardiomegaly with mild vascular congestion. Reading Location: [facility] Chest x-ray, 2 views, AP and lateral, interpreted by myself and the radiologist shows cardiomegaly with prior sternotomy and sternal wires. Mild basilar vascular congestion. No pneumonia. No effusion. Primarily chronic changes. Rhythm Strip Rhythm Strip: Sinus Rhythm Rate: 72 Ectopy: None EKG Initial EKG: Attestation: I personally reviewed and interpreted this EKG as follows: Interpretation: Sinus Rhythm, No Acute Injury Pattern and RBBB Comments: Normal sinus rhythm rate of 72 no acute signs of ND or ischemia. Right bundle branch block. Discharge Plan Triage Chief Complaint: General Illness ED Provider: Homero Mendosa Dx/Rx/DC Orders Clinical Impression: Chronic kidney disease, Acute dehydration, Diarrhea, History of diabetes mellitus, History of hypertension Prescriptions: No Action insulin glargine 100 unit/mL (3 mL) insulin pen 9 unit subcut DAILY Systane Balance 0.6 % drops 1 drp OPHTHALMIC DAILY PRN (Reason: Dry Eyes) losartan 50 mg tablet 50 mg PO QDAY rosuvastatin 5 mg tablet 5 mg PO QDAY amlodipine 10 mg tablet 10 mg PO QDAY allopurinol 100 MG tablet 100 mg PO DAILYCM Patient Comments: GOUT metoprolol succinate 100 MG tablet extended release 24 hr 100 mg PO DAILY aspirin 81 MG tablet,chewable 81 mg PO DAILY calcium carbonate-vitamin D3 1 EACH tablet 1 ea PO DAILY insulin aspart U-100 100 unit/mL (3 mL) insulin pen 7 unit subcut QAC Rx Instructions: 8 units AM, 3 units, 6 units dinner Primary Care Provider: Anju Pearce Referrals: Anju Pearce MD [Primary Care Provider] - Print Language: Moldovan Disposition Disposition: Acute Care Hospital [facility] What to do if you have Problems For any increased pain, shortness of breath, bleeding, nausea or vomiting, chestpain, or any unexpected problems, contact your Primary Care Provider. Call [facility] ([phone]) or report tothe closest Emergency Room. Call 911 if necessary. 06/14/25 1115 Cosigner Signature (if applicable): CC: Dr. Anju Pearce MD ~ Signed [facility]08-10-2025 NoteHNO ID: [id number] Author: CAMERON FREEMAN MD Service: ? Author Type: Physician Type: Progress Notes Filed: 06/14/2025 11:15 Note Text: Received page from [facility]. Patient with hx of CKD, CAD w/ CABG, DM and lives alone, presented with malaise and diarrhea. Recently was seen in our clinic and treated for UTI. Found to have creatinine of 2.46 in ED on baseline of 1.9. Being admitted for hydration. ED anticipating short admission, but wanting to let us know her next appt is in August so will need sooner follow up and will need nephro appt. Will let our scheduling team and Dr Pearce know.[facility] 06-14-2025 History of Present illness Narrative* Cameron Freeman MD - 06/14/2025 11:08 AM EDT Received page from [facility]. Patient with hx of CKD, CAD w/ CABG, DM and lives alone, presented with malaise and diarrhea. Recently was seen in our clinic and treated for UTI. Found to have creatinine of 2.46 in ED on baseline of 1.9. Being admitted for hydration. ED anticipating short admission, but wanting to let us know her next appt is in August so will need sooner follow up and will need nephro appt. Will let our scheduling team and Dr Pearce know. documented in this encounterCleveland [facility]08-10-[facility]25 Radiology Diagnostic study note [facility] Imaging Services [address] [place] [address] Chest PA and Lateral MR#: [id number] Acct: [id number] Name: CICI WOODWARD Rep #: [id number] : 1935 F 89 From: Jan Goss MD PCP: Dr. Anju Pearce MD Status: RE G ER Study:Chest PA and Lateral Date of Exam: 06/14/25 Exam# [id number] Ordering Dr: Luz Mendosa MD PROCEDURE: CHEST PA AND LATERAL 06/14/2025 REASON FOR EXAM: WEAKNESS TECHNIQUE: CHEST PA AND LATERAL COMPARISON: XR chest PA and Lateral 05-Jan-2025 11:39 AM FINDINGS: LUNGS AND PLEURA: No focal airspace consolidation. No pleural effusion or pneumothorax. HEART AND MEDIASTINUM: The cardiac silhouette is mildly enlarged. The mediastinal contour is normal. 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 PULMONARY VESSELS: Mild prominence of the central pulmonary vasculature. BONES: No acute osseous abnormality. OTHER: Right upper abdominal surgical clips. The abdominal aorta is calcified. RAD/Chest PA and Lateral IMPRESSION: Cardiomegaly with mild vascular congestion. Reading Location: [id number] CC: Dr. Homero Mendosa MD; Dr. Anju Pearce MD ~ Document Scanner: Signed [facility]07-29-2025 NoteHNO ID: [id number] Author: CLEMENT CORTES APRN.[facility] Service: ? Author Type: Nurse Practitioner Type: Progress Notes Filed: 06/02/2025 10:21 Note Text: [facility] [place] Veronica Woodward is a 89 year old [...] other causes of hematuria. and Recording using ambient GetBack software for draft documentation of the visit was discussed with the patient/authorized sales representative public utilities; all questions welcomed and answered. Patient/authorized sales representative public utilities agreed to proceed MDM Procedures[facility] History of Present illness Narrative* Clement Cortes APRN.CNP - 06/02/2025 10:20 AM EDT [facility] [place] Gema Woodward is [...] other causes of hematuria. and Recording using [place] [employer] software for draft documentation of the visit was discussed with the patient/authorized sales representative public utilities; all questions welcomed and answered. Patient/authorized sales representative public utilities agreed to proceed MDM Procedures documented in this encounterCleveland Clinic [facility]ucl[facility]07-10-2025 History of Present illness Narrative* Ishmael Davis, PARTY BUS DRIVER.TRANSCRIPT EVALUATOR - 05/14/2025 1:40 PM EDT Images from the original note were not included. Cici Woodward is a 89 year old female [...] - Chelo Corbin does not see a grain broker and market operator. - Reports minimal thirst and low fluid intake, stating she could go all day without a drink of water. - Drinks one cup of coffee daily; consumes quite a bit of milk. - Nocturia x3-4 times per night; keeps a bottle of water in the bathroom to sip during the night. Anemia: - Recent labs indicate slight anemia. - Chelo Corbin is taking iqvq-wwb-wugpalp iron supplement daily with meals; denies gastrointestinal [...] and labs in 3 months Ishmael Davis APRN.TRANSCRIPT EVALUATOR documented in this encounterCleveland Clinic Euclid [facility]07-10-2025 NoteHNO ID: [id number] Author: ISHMAEL DAVIS APRN.CNS Service: ? Author Type: Nurse Specialist Type: Progress Notes Filed: 07/03/2025 15:20 Note Text: Cici Woodward is a 89 year old female [...] - Chelo Corbin does not see a grain broker and market operator. - Reports minimal thirst and low fluid intake, stating she could go all day without a drink of water. - Drinks one cup of coffee daily; consumes quite a bit of milk. - Nocturia x3-4 times per night; keeps a bottle of water in the bathroom to sip during the night. Anemia: - Recent labs indicate slight anemia. - Chelo Corbin is taking dtnt-wvq-yxmrqbz iron supplement daily with meals; denies gastrointestinal side effects. She has a history of stroke and heart failure and is in need of a wheeled walker. Medical/Family history review Reviewed and updated problem [...] and labs in 3 months Ishmael Davis APRN.[place]07-10-2025 Instructions* Patient Instructions* Ishmael Davis APRN.TRANSCRIPT EVALUATOR - 05/14/2025 1:31 PM EDT Latest Ref [...] review all the medicines you take, even gdxe-njt-lklscwz medicines. As you get older, the way medicines work in your body can change. Some medicines, or combinations of medicines, can make you sleepy or dizzy andcan cause you to fall. 3. Have your [...] have certain medical conditions. documented in this encounterCleveland Clinic [facility]07-07-2025 NoteHNO ID: [id number] Author: HAL HOLLIDAY MA Service: ? Author Type: Exercise Physiologist Type: Progress Notes Filed: 05/11/2025 16:03 Note [...] Wellness actions taken: HCC related Navigation Signature: Hal Holliday MA May 11, 2025 4:01 [facility]07-05-2025 NoteHNO ID: [id number] Author: ANJU PEARCE MD Service: ? Author Type: Physician Type: Progress Notes Filed: 05/11/2025 07:44 Note Text: Patient already has orders from 01/16/25 for May labs to be done. Make sure patient aware has labs ordered so may do prior to appointment with Ishmael or day if too difficult to come to office twice the week of her appointment.[facility]07-05-2025 History of Present illness Narrative* Anju Pearce MD - 05/09/2025 2:39 PM EDT Patient already has orders from 01/16/25 for May labs to be done. Make sure patient aware has labs ordered so may do prior to appointment with Ishmael or day of if toodifficult to come to office twice the week of her appointment. * Hal Holliday MA - 05/06/2025 10:35 AM EDT POPULATION HEALTH NAVIGATION OUTREACH Action/FYI UPDATED APPOINTMENT [...] already scheduled Updated appointment notes Navigation Signature: Hal Holliday MA May 06, 2025 10:35 AM documented in this encounterCleveland Clinic [facility]07-02-2025 NoteHNO ID: [id number] Author: HAL HOLLIDAY MA Service: ? Author Type: Exercise Physiologist Type: Progress Notes Filed: 05/11/2025 07:44 Note [...] already scheduled Updated appointment notes Navigation Signature: Hal Holliday MA May 06, 2025 10:35 [facility]07-02-2025 NotePatient Outreach (NETNAV) CICI WOODWARD I ([id number]) 1935 F Date Time Provider Department 05/06/25 HAL HOLLIDAY NETNAV During your visit today, we recorded the following information about you: Hal Holliday MA 05/11/2025 7:44 AM Signed POPULATION [...] already scheduled Updated appointment notes Navigation Signature: Hal Holliday MA May 06, 2025 10:35 AM Anju Pearce MD 05/11/2025 7:44 AM Signed Patient already has orders from 01/16/25 for May labs to be done. Make sure patient aware has labs ordered so may do prior to appointment with Ishmael or if too difficult to come to office twice the week of her appointment. Hal Holliday MA 05/11/2025 4:03 PM Signed POPULATION HEALTH NAVIGATION OUTREACH Action/I Spoke to Chelo Corbin . She will get lab work done Sunday. Reason for Outreach Care Gap/HCC or Scheduling Wellness Visits Care Gaps due: Medicare Annual Wellness Visit Patient Contacted: Spoke to patient/parent/or legal guardian Patient identified by name and : Yes Care Gap/HCC/Scheduling Wellness actions taken: HCC related Navigation Signature: Hal Holliday MA May 11, 2025 4:01 PM Allergies As of Date: 05/06/2025 Noted Allergy Reaction BACTRIM (SULFAMETHOXAZOLE-TRIMETH*06/10/2008 11 - Vomiting CODEINE 08/31/2005 11 - Vomiting FARXIGA (DAPAGLIFLOZIN) 09/12/2024 8 - GI Upset PREDNISONE 09/05/2012 11 - Vomiting STATINS (ZIEFVQU-NUH-PYB REDUCTAS*05/25/2009 5 - Intolerance ULTRAM (TRAMADOL HCL) 01/17/2013 11 - Vomiting Date Reviewed: 02/19/2025 Reviewed by: Susana Harry LPN - Fully Assessed Reason for Visit: Population Health Navigation Outreach [3910] Cmt: ACO WORKBENCH BEN PCSA Visit Diagnosis:Type 2 diabetes mellitus with [...] 3 times daily Insulin Yes - Insulin [place], Disposable, (BD ULTRA-FINE JOHN PEN NEEDLE) 32 [...] [E78.00] Osteopenia [M89.9, M94.9] (more content not included)...[facility]06-26-2025 Evaluation note* Diagnosis Onset Date Resolution Status Admit Date 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 chronic April 30, 2025 3:19pm Benign hypertension chronic April 30, 2025 3:19pm HLD (hyperlipidemia) chronic April 30, 2025 3:19pm Ischemic cardiomyopathy chronic J [facility] 2024 3:19pm Paroxysmal atrial fibrillati on with RVR chronic April 30, 2025 3:19pm Acute dehydration acute June 14, 2025 11:09am Diarrhea acute June 14, 2 025 11:09am History of diabetes mellitus acute June 14, 2025 11:09am History of hypertension acute A ugust 2024 11:09am Chronic kidney disease chronic [facility] 2024 11:09am [facility] Work Phone: 1(416) 450-557606-26-2025 Evaluation note* Diagnosis Onset Date Resolution Status Admit Date 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 chronic April 30, 2025 3:19pm Benign hypertension chronic April 30, 2025 3:19pm HLD (hyperlipidemia) chronic April 30, 2025 3:19pm Ischemic cardiomyopathy chronic J [facility] 2024 3:19pm Paroxysmal atrial fibrillati on with RVR chronic April 30, 2025 3:19pm Acute dehydration acute June 14, 2025 11:09am SHA (acute kidney injury) acute June 14, 2025 11:09am Diarrhea acute June 14 025 11:09am History of diabetes mellitus acute June 14, 2025 11:09am History of hypertension acute A ugust 2024 11:09am Chronic kidney disease chronic [place] [facility] 2024 11:09am CKD (chronic kidney disease) stage 4, 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 June 14, 2025 11:09am [facility] Work Phone: 1(245) 772-653006-26-2025 Evaluation note* Diagnosis Onset Date Resolution Status Admit Date 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 chronic April 30, 2025 3:19pm Benign hypertension chronic April 30, 2025 3:19pm HLD (hyperlipidemia) chronic April 30, 2025 3:19pm Ischemic cardiomyopathy chronic J une 2024 3:19pm Paroxysmal atrial fibrillati on with RVR chronic April 30, 2025 3:19pm Acute dehydration acute June 14, 2025 11:09am SHA (acute kidney injury) acute June 14, 2025 11:09am Diarrhea acute June 14 025 11:09am History of diabetes mellitus acute June 14, 2025 11:09am History of hypertension acute A ugust 2024 11:09am Chronic kidney disease chronic [place] 2024 11:09am CKD (chronic kidney disease) stage 4, 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 June 14, 2025 11:09am 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 chronic July 02 1:43pm Benign hypertension chronic Augus t 2024 1:43pm HLD (hyperlipidemia) chronic Aug[facility] 2024 1:43pm Ischemic cardiomyopathy chronic A ugust 2024 1:43pm Paroxysmal atrial fibrillati on with RVR chronic July 02 1:43pm [facility] Work Phone: 1(788) 691-616306-17-2025 Telephone encounter Note* Telephone Encounter - Miriam Pepe RN - 04/21/2025 10:04 AM EDT Patient calls and states that [facility] did not transfer medication to [facility]. [facility] told patient to have PCP resend medication [...] Pepe RN April 21, 2025 10:05 AM [facility]06-17-[facility] Miscellaneous Notes* Telephone Encounter - Miriam Pepe RN - 04/21/2025 10:04 AM EDT Patient calls and states that [facility] did not transfer medication to [facility]. [facility] told patient to have PCP resend medication [...] 21, 2025 10:05 AM documented in this encounterCleveland Clinic [facility]06-17-2025 Telephone encounter Note * Telephone Encounter - Esthela Linder RN - 04/21/2025 9:55 AM EDT Pt called in and reports she takes 4 medications in the morning, but she only has 3 bottles. She was wanting to know if I could help her figure out the one she was missing. She was missing the Amlodipine. I let her know she just needs to call her pharmacy as she has refills available. Esthela Linder RN [facility]06-17-2025 Miscellaneous Notes* Telephone Encounter - Esthela Linder RN - 04/21/2025 9:55 AM EDT Pt called in and reports she takes 4 medications in the morning, but she only has 3 bottles. She was wanting to know if I could help her figure out the one she was missing. She was missing the Amlodipine. I let her know she just needs to call her pharmacy as she has refills available. Esthela Linder RN documented in this encounterCleveland Clinic [facility]05-28-2025 Telephone encounter Note * Telephone Encounter - Kami Mccain RN - 04/01/2025 9:42 AM EDT Patient has contacted [facility] to transfer 2 of her medication to another pharmacyand they have not completed this. Pt asking if provider would transfer the scripts, please. Pended. Requested Prescriptions Pending Prescriptions Disp Refills losartan (COZAAR) 50 mg tablet 90 tablet Sig: Take 1 tablet by mouth once daily. metoprolol succinate ER (TOPROL XL) 100 mg 90 tablet Sig: Take 1 tablet by mouth once daily. Kami Mccain RN [facility]05-28-2025 Miscellaneous Notes* Telephone Encounter - Kami Mccain RN - 04/01/2025 9:42 AM EDT Patient has contacted [facility] to transfer 2 of her medication to another pharmacyand they have not completed this. Pt asking if provider would transfer the scripts, please. Pended. Requested Prescriptions Pending Prescriptions Disp Refills losartan (COZAAR) 50 mg tablet 90 tablet Sig: Take 1 tablet by mouth once daily. metoprolol succinate ER (TOPROL XL) 100 mg 90 tablet Sig: Take 1 tablet by mouth once daily. Kami Mccain RN documented in this encounterCleveland Clinic [facility]05-14-2025 Telephone encounter Note * Telephone Encounter - Charlotte Nava LPN - 03/18/2025 10:35 AM EDT Patient has been identified by name and [...] Please advise. Thank you. Charlotte Nava LPN. [facility]05-14-2025 Miscellaneous Notes* Telephone Encounter - Charlotte Nava LPN - 03/18/2025 10:35 AM EDT Patient has been identified by name and [...] Please advise. Thank you. Charlotte Nava LPN. * Telephone Encounter - Melodie Lam - 03/18/2025 10:22 AM EDT Prescription Refill Information The patient has been [...] 18, 2025 10:24 AM documented in this encounterCleveland Clinic [facility]05-14-2025 Telephone encounter Note * Telephone Encounter - Melodie Lam - 03/18/2025 10:22 AM EDT Prescription Refill Information The patient has been [...] Melodie Lam March 18, 2025 10:24 AM [facility]04-28-[facility] Progress note* Result Encounter Note - Ishmael Davis APRN.TRANSCRIPT EVALUATOR - 03/02/2025 1:26 PM EDT BNP is trending upward. BUN is high, has previously declined nephrology OV. Creatinine Date Value Ref Range Status 09/12/2024 2.20 (H) 0.58 - 0.96 mg* Final 05/09/2024 2.13 (H) 0.58 - 0.96 mg* Final 01/10/2024 2.10 (H) 0.58 - 0.96 mg* Final 12/24/2023 2.09 (H) 0.58 - 0.96 mg* Final [facility]04-28-2025 Miscellaneous Notes* Result Encounter Note - Ishmael Davis APRN.CNS - 03/02/2025 1:26 PM EDT BNP is trending upward. BUN is high, has previously declined nephrology OV. Creatinine Date Value Ref Range Status 09/12/2024 2.20 (H) 0.58 - 0.96 mg* Final 05/09/2024 2.13 (H) 0.58 - 0.96 mg* Final 01/10/2024 2.10 (H) 0.58 - 0.96 mg* Final 12/24/2023 2.09 (H) 0.58 - 0.96 mg* Final documented in this encounterCleveland Clinic [facility]04-25-2025 Progress note* Result Encounter Note - Ishmael Davis APRN.CNS - 02/27/2025 11:21 AM EDT Resolution of interstitial edema and small left pleural effusion [facility]04-25-2025 Miscellaneous Notes* Result Encounter Note - Ishmael Davis APRN.CNS - 02/27/2025 11:21 AM EDT Resolution of interstitial edema and small left pleural effusion documented in this [facility]04-25-2025 NoteHNO ID: [id number] Author: PAIGE BOSTON RT(R) Service: ? Author Type: Technologist Type: Progress Notes Filed: 02/27/2025 10:14 Note Text: Radiology Service Progress Note PATIENT NAME: Cici Woodward DATE OF SERVICE: February 27, 2025 [...] PATIENT PRESENTS WITH AN IMPLANTABLE OR ATTACHED STAINED GLASS WINDOW DESIGNER: No RADIOLOGY DEPARTMENT: General X-ray: Exam(s) Completed: Chest X-Ray PERIPHERAL IV DATA: Not applicable SIGNED BY: RT Clif(R) February 27, 2025 10:13 [facility]04-18-2025 Telephone encounter Note* Telephone Encounter - Piedad Henderson MA - 02/20/2025 8:12 AM EDT Patient notified of results, verbalized understanding of instructions given and has f/u XR ordered to complete in a week which she plans to do as well as her blood work. Piedad Henderson MA [facility]04-18-2025 Miscellaneous Notes* Telephone Encounter - Piedad Henderson MA - 02/20/2025 8:12 AM EDT Patient notified of results, verbalized understanding of instructions given and has f/u XR ordered to complete in a week which she plans to do as well as her blood work. Piedad Henderson MA * Telephone Encounter - Reese Ga APRN.CNP - 02/20/2025 7:08 AM EDT COVID-19, influenza A, and influenza B PCR test are negative. Continue supportive therapies as discussed during visit. Follow-up with PCP if symptoms are not improving. Reese Ga APRN.DAYANA documented in this encounterCleveland Clinic [facility]04-18-2025 Telephone encounter Note * Telephone Encounter - Reese Ga APRN.CNP - 02/20/2025 7:08 AM EDT COVID-19, influenza A, and influenza B PCR test are negative. Continue supportive therapies as discussed during visit. Follow-up with PCP if symptoms are not improving. Reese Ga APRN.CNP [facility] Work Phone: 1(597) 221-790904-17-2025 Instructions* Patient Instructions* Ishmael Davis APRN.CNS - 02/19/2025 12:29 PM [...] the lab (for example, the one on [place]) in the morning; you will need to fast (only water, tea, or coffee without sugar/cream is allowed) until your blood is drawn. If your symptoms worsen or persist, or if new concerns arise, please contact our office. documented in this encounterCleveland Clinic [facility]ucl[facility]04-17-2025 NoteHNO ID: [id number] Author: ISHMAEL DAVIS APRN.CNS Service: ? Author Type: Nurse Specialist Type: Progress Notes Filed: 02/19/2025 12:40 Note Text: SUBJECTIVE: LDL Cholesterol due on 01/09/2025 Dilated Retinal Exam due on 03/17/2025 HPI Cicilin Woodward is a 89 year old female. [...] History of CAD s/p CAB, followed by [facility]. Currently without symptomatic complaints. Recent cardiology visit 01/2025. Stopped Plavix. 6 month follow up. Labs [facility] 01/2025, BUN 42 Cr. 1.95 [...] 1 tablet by mouth once daily. Insulin [place], Disposable, (BD ULTRA-FINE JOHN PEN NEEDLE) 32 gauge x 5/32 Use one needle for each dose. 1x/ (more content not included)...[facility]04-17-2025 History of Present illness Narrative* Ishmael Davis, ALCIRA.TRANSCRIPT EVALUATOR - 02/19/2025 11:51 AM EDT SUBJECTIVE: LDL Cholesterol due on 01/09/2025 Dilated Retinal Exam due on 03/17/2025 PK Cici Woodward is a 89 year old female. [...] History of CAD s/p CAB, followed by [facility]. Currently without symptomatic complaints. Recent cardiology visit 01/2025. Stopped Plavix. 6 month follow up. Labs [facility] 01/2025, BUN 42 Cr. 1.95 e GFR 24 Echocardiogram completed 01/2025 and showed ejection fraction of 50%. See scanned documents.Stage IIdiastolic dysfunction. No significant valvular abnormalities. ROS Constitutional: [...] mL) insulin pen Inject 14 Units subcutaneously dailyat bedtime. losartan (COZAAR) 50 mg tablet Take [...] 1 tablet by mouth once daily. Insulin [place], Disposable, (BD ULTRA-FINE JOHN PEN NEEDLE) 32 [...] hypercholesterolemia S/P CABG x 3 01/09/2020 @ [facility] by Dr. Rivera Stroke (cerebrum) ([facility]) 2013 Type II or unspecified type diabetes [...] Chronic heart failure with preserved ejection fraction ([facility]) (I50.32) - Recent cardiology evaluation with no changes to current management other than Plavix was discontinued. - [facility] Echocardiogram showed near normal systolic [...] disease, with long-term current use of insulin ([facility]) (E11.22) - Recent labs show slight improvement [...] Level: 4 - Moderate documented in this encounterCleveland Clinic [facility]04-17-2025 ImimUAXQ-MMR-7 (AGENT OF COVID-19) RNA: Not detected INFLUENZA A RNA: Not detected INFLUENZA B RNA: Not detected RESPIRATORY SYNCYTIAL VIRUS (RSV) RNA: Not detectedSelect Medical [facility]ty [facility]Comment on above:Performed By: #### [id number] #### [facility] CLIA [id number] [address] [place], [place] [id number] History of Present illness Narrative* Gregorio Caldwell RT(R) - 02/19/2025 9:30 AM EDT Radiology Service Progress Note PATIENT NAME: Cici Woodward DATE OF SERVICE: February 19, 2025 TIME: 9:21 AM PATIENT IDENTITY VERIFICATION COMPLETED USING TWO (2) IDENTIFIERS: Name and Date of confirmedby patient verbally. FALL SCREENING: Has the patient had 2 falls in the last year or 1 fall with injury or currently using an Ambulatory Assistive Device (Walker, Cane, Wheelchair, Crutches, etc.)? No PATIENT GENDER DATA: Assigned female at . status: : No status:NO. PATIENT RELEVANT IMPLANT DATA REVIEWED: Not Applicable PATIENT PRESENTS WITH AN IMPLANTABLE OR ATTACHED STAINED GLASS WINDOW DESIGNER: No RADIOLOGY DEPARTMENT: General X-ray: Exam(s) Completed: Chest X-Ray PERIPHERAL IV DATA: Not applicable SIGNED BY: RT Dennis(R) February 19, 2025 9:21 AM documented in this encounterCleveland Clinic Euclid [facility]04-17-2025 NoteHNO ID: [id number] Author: GREGORIO CALDWELL RT(Ever) Service: Radiology Author Type: Technologist Type: Progress Notes Filed: 02/19/2025 09:31 Note Text: Radiology Service Progress Note PATIENT NAME: Cici Woodward DATE OF SERVICE: February 19, 2025 [...] PATIENT PRESENTS WITH AN IMPLANTABLE OR ATTACHED STAINED GLASS WINDOW DESIGNER: No RADIOLOGY DEPARTMENT: General X-ray: Exam(s) Completed: Chest X-Ray PERIPHERAL IV DATA: Not applicable SIGNED BY: RT Dennis(Ever) February 19, 2025 9:21 [facility]04-17-2025 NoteHNO ID: [id number] Author: CARIDAD ANGLIN APRN.COLLAR SEPARATOR Service: ? Author Type: Nurse Practitioner Type: Progress Notes Filed: 02/19/2025 10:02 Note Text: [facility] Subjective Cici Woodward is a 89 year old female. [...] history is provided by the patient. No electronic instrument trades worker was used. Wheezing This is a new [...] hypercholesterolemia S/P CABG x 3 01/09/2020 @ [facility] by Dr. Rivera Stroke (cerebrum) ([facility]) 2013 Type II or unspecified type diabetes mellitus without mention of complication, uncontrolled Unspecified cardiovascular disease Unspecified essential hypertension Urgency of urination 2008 PAST SURGICAL HISTORY Procedure Laterality Date ANGIOPLASTY 1988 CABG (3) VEIN GRAFTS AND ARTERIAL GRAFT(S) 01/09/2020 @ [facility] by Dr. Rivera COLONOSCOPY FLX DX W/COLLJ SPEC WHEN PFRMD 08/29/07 LAPAROSCOPY SURG CHOLECYSTECTOMY Cholecystectomy, lap LEFT HEART CATH,CUTDOWN 1991 PAST SURGICAL HISTORY OF Tubal ALLERGIES Bactrim [Sulfamethoxazole-Trimethoprim], Codeine, Farxiga [Dapagliflozin], Prednisone, Statins [Ghcizst-Unj-Mkg Reductase Inhibitors], and Ultram [Tramadol Hcl] MEDICATIONS [...] 1 tablet by mouth once daily. Insulin [place], Disposable, (BD ULTRA-FINE JOHN PEN NEEDLE) 32 [...] Never Vaping Use V (more content not included)...[facility]04-17-2025 History of Present illness Narrative* Caridad Anglin, ALCIRA.COLLAR SEPARATOR - 02/19/2025 9:10 AM EDT [facility] Subjective Cici Woodward is a 89 year old female. [...] history is provided by the patient. No electronic instrument trades worker was used. Wheezing This is a new problem. The current episode started today. The problem has been resolved. Associatedsymptoms include headaches. Pertinent negatives include no abdominal [...] hypercholesterolemia S/P CABG x 3 01/09/2020 @ [facility] by Dr. Rivera Stroke (cerebrum) ([facility]) 2013 Type II or unspecified type diabetes mellitus without mention of complication, uncontrolled Unspecified cardiovascular disease Unspecified essential hypertension Urgency of urination 2008 PAST SURGICAL HISTORY Procedure Laterality Date ANGIOPLASTY 1988 CABG (3) VEIN GRAFTS & ARTERIAL GRAFT(S) 01/09/2020 @ [facility] by Dr. Rivera COLONOSCOPY FLX DX W/COLLJ SPEC WHEN PFRMD 08/29/07 LAPAROSCOPY SURG CHOLECYSTECTOMY Cholecystectomy, lap LEFT HEART CATH,CUTDOWN 1991 PAST SURGICAL HISTORY OF Tubal ALLERGIES Bactrim [Sulfamethoxazole-Trimethoprim], Codeine, Farxiga [Dapagliflozin], Prednisone, Statins [Rknbkjf-Bdi-Ihy Reductase Inhibitors], and Ultram [Tramadol Hcl] MEDICATIONS [...] mL) insulin pen Inject 14 Units subcutaneously dailyat bedtime. losartan (COZAAR) 50 mg tablet Take [...] 1 tablet by mouth once daily. Insulin [place], Disposable, (BD ULTRA-FINE JOHN PEN NEEDLE) 32 [...] Negative for cough, hemoptysis, sputum production and shortnessof breath. Cardiovascular: Negative for chest pain. Gastrointestinal: [...] scheduling and close follow up Caridad Anglin APRN.COLLAR SEPARATOR History and Record Review Clinical information obtained from an independent historian. History obtained from or confirmed by:family member. External record(s) reviewed: prior inpatient record and prior outpatient record. Differential Diagnoses - URI - respiratory failure is less likely for the following reason(s): H&P not suggestive and no evidence on imaging Contributing Factors Chronic conditions affecting care: diabetes and hypertension Disposition The patient was discharged. Procedures documented in this encounterCleveland Clinic Eucl[facility]03-17-2025 NoteHNO ID: [id number] Author: HAL HOLLIDAY MA Service: ? Author Type: Exercise Physiologist Type: Progress Notes Filed: 01/19/2025 15:47 Note [...] already scheduled Updated appointment notes Navigation Signature: Hal Holliday MA January 19, 2025 8:10 [facility]03-17-2025 History of Present illness Narrative* Hal Holliday MA - 01/19/2025 8:10 AM EDT POPULATION HEALTH NAVIGATION OUTREACH Action/FYI updated appointment [...] already scheduled Updated appointment notes Navigation Signature: Hla Holliday MA January 19, 2025 8:10 AM documented in this encounterCleveland Clinic Euclid Hospital03-17-2025 NotePatient Outreach (NETNAV) TRACECICI I ([id number]) 1935 F Date Time Provider Department 01/19/25 HAL HOLLIDAY During your visit today, we recorded the following information about you: Hal Holliday MA 01/19/2025 3:47 PM Signed POPULATION [...] already scheduled Updated appointment notes Navigation Signature: Hal Holliday MA January 19, 2025 8:10 AM Allergies As of Date: 01/19/2025 Noted Allergy Reaction BACTRIM (SULFAMETHOXAZOLE-TRIMETH*06/10/2008 11 - Vomiting CODEINE 08/31/2005 11 - Vomiting FARXIGA (DAPAGLIFLOZIN) 09/12/2024 8 - GI Upset PREDNISONE 09/05/2012 11 - Vomiting STATINS (TCLMWRY-TSX-QXE REDUCTAS*05/25/2009 5 - Intolerance ULTRAM (TRAMADOL HCL) [...] tablet by mouth once daily. - Insulin [place], Disposable, (BD ULTRA-FINE JOHN PEN NEEDLE) 32 [...] (HCC) [N18.32] 01/20/2022 Hyperte (more content not included)...[facility]03-14-2025 Instructions* Patient Instructions* Anju Pearce MD - 01/16/2025 1:59 PM EDT - Continue taking all current medications as prescribed. - Refill prescriptions for amlodipine, allopurinol, Plavix, and rosuvastatin have been sent to the pharmacy. - Stay hydrated to support kidney function. - Schedule and complete lab tests in May, including cholesterol, vitamin D, uric acid, and a urinetest to check for protein. Please fast for 8 hours before the cholesterol test. - Update your healthcare power of state attorney to include your daughter, Araceli Carlos, as the second alternate. Bring a copy of the updated document to the clinic. - Keep your balance and avoid falls by standing up slowly and using support if needed. - Next eye doctor appointment is scheduled for next week. - You may be due for a new pneumonia vaccine in 2026, depending on updated guidelines. documented in this encounterCleveland Clinic [facility]ucl[facility]03-14-2025 NoteHNO ID: [id number] Author: ANJU PEARCE MD Service: ? Author Type: Physician Type: Progress Notes Filed: 01/16/2025 14:02 Note Text: This note was created using Easy [employer] Online. Subjective Cici Woodward is a 89 year old female. HISTORY Cici Woodward is a 89 year old lady here for yearly exam and follow up appointment. Has HCDPOA but the one on file needs updated. First surrogate decision maker is son, Miguel Pollard; second is daughter, Araceli Carlos. 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 Rivera Stroke (cerebrum) ([facility]) 2013 Type II or unspecified type diabetes [...] by mouth once daily as directed Insulin [place], Disposable, (BD ULTRA-FINE JOHN PEN NEEDLE) 32 [...] [Sulfametho* Vomiting Codeine Vomiti (more content not included)...[facility] 01-16-2025 History of Present illness Narrative* Anju Pearce MD - 01/16/2025 1:24 PM EDT This note was created using [employer]. Subjective Cici Woodward is a 89 year old female. HISTORY Cici Woodward is a 89 year old lady here for yearly exam and follow up appointment. Has HCDPOA but the one on file needs updated. First surrogate decision maker is son, Miguel Pollard;second is daughter, Araceli Carlos. Chelo is a 89-year-old female, with a [...] reports significant fatigue and congestion, with a lotof coughing. She was advised to take Tylenol [...] bed rail at home and has several thingsto assist with balance. She denies heavy smoking, alcohol consumption, or drug use. She reports getting up a couple of times at night to urinate and sometimes has difficulty returningto sleep. 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 Rivera Stroke (cerebrum) ([facility]) 2013 Type II or unspecified type diabetes [...] mL) insulin pen Inject 14 Units subcutaneously dailyat bedtime. losartan (COZAAR) 50 mg tablet Take [...] by mouth once daily as directed Insulin [place], Disposable, (BD ULTRA-FINE JOHN PEN NEEDLE) 32 [...] May. Anju Pearce MD documented in this encounterCleveland Clinic [facility]03-05-2025 Telephone encounter Note * Telephone Encounter - Charlotte Nava LPN - 01/07/2025 1:13 PM EST Per pharmacy, Patient is asking for a pen. Charlotte Nava LPN [facility]03-05-2025 Miscellaneous Notes* Telephone Encounter - Charlotte Nava LPN - 01/07/2025 1:13 PM EST Per pharmacy, Patient is asking for a pen. Charlotte Nava LPN documented in this encounterCleveland Clinic Eucl[facility] Hospital03-04-2025 Note* Addendum Note - Graciela Bernardo MA - 01/06/2025 1:51 PM ESTAddended by: GRACIEAL BERNARDO on: 01/06/2025 01:51 PM Modules accepted: Orders [facility]03-04-2025 Telephone encounter Note* Telephone Encounter - Graciela Bernardo MA - 01/06/2025 1:51 PM EST Please re-send Graciela Bernardo MA [facility]03-04-2025 Miscellaneous Notes* Addendum Note - Graciela Bernardo MA - 01/06/2025 1:51 PM ESTAddended by: GRACIELA BERNARDO on: 01/06/2025 01:51 PM Modules accepted: Orders * Telephone Encounter - Graciela Bernardo MA - 01/06/2025 1:51 PM EST Please re-send Graciela Bernardo MA * Telephone Encounter - Anju Pearce MD - 01/05/2025 6:35 PM EST The following approved medication requests have been [...] MD See MyChart reply documented in this encounterCleveland [facility]2025 Telephone encounter Note * Telephone Encounter - Anju Pearce MD - 01/05/2025 6:35 PM EST The following approved medication requests have been [...] bedtime. Anju Pearce MD See MyChart reply [facility]01-15-2025 Telephone encounter Note* Telephone Encounter - Graciela Bernardo MA - 11/19/2024 2:53 PM EST Letter mailed Graciela Bernardo MA [facility]01-15-2025 Miscellaneous Notes* Telephone Encounter - Graciela Bernardo MA - 11/19/2024 2:53 PM EST Letter mailed Graciela Bernardo MA documented in this encounterCleveland Clinic [facility]11-14-2024 Telephone encounter Note * Telephone Encounter - Kami Guevara - 09/18/2024 10:59 AM EST Spoke with patient and she stated her daughter scheduled her for [facility] Sunday09/22/24 [facility]11-14-2024 Miscellaneous Notes* Telephone Encounter - Kami Guevara - 09/18/2024 10:59 AM EST Spoke with patient and she stated her daughter scheduled her for [facility] Sunday09/22/24 * Telephone Encounter - Ishmael Davis APRN.CNS - 09/18/2024 7:24 AM EST eGFR Cre: 21 at 09/12/2024 1:46 PM [...] Consider hydralazine plus nitrate. documented in this encounterCleveland Clinic [facility]ucl[facility]11-14-2024 Telephone encounter Note * Telephone Encounter - Ishmael Davis APRN.CNS - 09/18/2024 7:24 AM EST eGFR Cre: 21 at 09/12/2024 1:46 PM [...] sacubitril-valsartan 24/26 BID. Consider hydralazine plus nitrate. [facility]11-08-[facility] History of Present illness Narrative* Ishmael Davis APRN.CNS - 09/12/2024 1:00 PM EST SUBJECTIVE: Covid-19 Vaccine() due on 07/06/2024 PK Cici Woodward is a 89 year old female. [...] CAD s/p CAB years ago, followed by [facility]. Currently without symptomatic complaints.. DIABETES [...] 100 unit/mL (3 mL) Inject 14 Units subcutaneouslydaily at bedtime. insulin aspart, niacinamide, (FIASP FLEXTOUCH U-100 INSULIN) 100 unit/mL (3 mL) pen Inject 8 Units subcutaneously daily with breakfast AND 4 Units daily with lunch AND 6 Units daily with dinner. Willswitch from Novolog to Fiasp in 2023. HOLD LUNCH TIME INSULIN FOR NOW. (Patient taking differently:Inject 8 Units subcutaneously daily with breakfast AND [...] 1 tablet by mouth once daily Insulin [place], Disposable, (BD ULTRA-FINE JOHN PEN NEEDLE) 32 [...] hypercholesterolemia S/P CABG x 3 01/09/2020 @ [facility] by Dr. Rivera Stroke (cerebrum) ([facility]) 2014 Type II or unspecified type diabetes [...] - ICD9: 428.0, ICD10: I50.9 Followed by [facility] - Continue current medications - Encouraged sodium restriction - Recommend regular aerobic exercise/ walking - NT PRO BNP 6. Encounter for immunization - ICD9: V03.89, ICD10: Z23 - PFIZER-BIONTECH COVID-19 VACCINE AGE 12+ YR (COMIRNATY) - declined at this time Not needing insulin refill yet, will let us know when needed. Her formulary is changing, covered insulins are listed in [employer] message today from her daughter.GVOKE HYPOPEN, HUMULIN R U-500 KWIKPEN, INSULIN ASP PRT INSULIN PEN, INSULIN ASPART U-100 INSULIN PEN, INSULIN DEGLUDEC INSULIN PEN, INSULIN GLARGINE U-300 INSULIN PEN, INSULIN GLARGINE-YFGN INSULIN PEN. labs today 4 mo follow up Anju Pearce MD- with labs 8 mo follow up Ishmael Davis APRN.TRANSCRIPT EVALUATOR Ishmael Davis APRN.CNS Medical Decision Making: Problems: Moderate: 2+ stable chronic illnesses Data: Unique test result(s) reviewed: 3+ Risk: Moderate: Drug management Medical Decision Making Level: 4 - Moderate documented in this encounterCleveland Clinic Eucl[facility]11-08-2024 NoteHNO ID: [id number] Author: ISHMAEL DAVIS APRN.CNS Service: ? Author Type: Nurse Specialist Type: Progress Notes Filed: 09/18/2024 07:49 Note Text: SUBJECTIVE: Covid-19 Vaccine( season) due on 07/06/2024 HPI Cici Woodward is a 89 year old female. [...] History of CAD s/p CAB, followed by [facility]. Currently without symptomatic complaints. Reports [...] not included)... [facility]10-03-2024 Telephone encounter Note* Telephone Encounter - Dirk Simms RN - 08/07/2024 8:36 AM EDT The patient has been identified by name [...] Simms RN August 07, 2024 8:37 AM [facility]10-03-2024 Miscellaneous Notes* Telephone Encounter - Dirk Simms RN - 08/07/2024 8:36 AM EDT The patient has been identified by name [...] 07, 2024 8:37 AM documented in this encounterCleveland Clinic [facility]08-17-2024 Telephone encounter Note * Telephone Encounter - Anju Pearce MD - 06/21/2024 1:36 PM EDT Noted back on FIASP. Okay to continue lunch time insulin. Adjust dose of insulin with meals as needed Updated med list [facility]08-17-2024 Miscellaneous Notes* Telephone Encounter - Anju Pearce MD - 06/21/2024 1:36 PM EDT Noted back on FIASP. Okay to continue lunch time insulin. Adjust dose of insulin with meals as needed Updated med list * Telephone Encounter - Dirk Simms RN - 06/21/2024 8:11 AM EDT Phoned patient and given provider's message below with verbalized understanding. Patient reports she picked Fiasp at [facility] pharmacy yesterday. Reports her insurance would not cover novolog. Reports she has been taking 3 units at lunch and will continue to do so. * Telephone Encounter - Anju Pearce MD - 06/20/2024 6:19 PM EDT If she has been holding lunch time insulin, continue to hold it The order was filed with prior directions to get Novolog since FIASP not available Can send new RX in with no insulin at lunch if not needing anything if that helps make if clearer for her. If she has been taking lunch insulin and sugars fine, may keep taking it. * Telephone Encounter - Lora Mitchell LPN - 06/20/2024 3:48 PM EDT Please clarify directions on patients Insulin. States that she is confused if she should take lunchtime insulin or hold lunchtime insulin. Directions on prescriptions are not clear. Please advise. documented in this encounterCleveland Clinic [facility]08-17-2024 Telephone encounter Note * Telephone Encounter - Dirk Simms RN - 06/21/2024 8:11 AM EDT Phoned patient and given provider's message below with verbalized understanding. Patient reports she picked Fiasp at [facility] pharmacy yesterday. Reports her insurance would not cover novolog. Reports she has been taking 3 units at lunch and will continue to do so. [facility]08-16-[facility]24 Telephone encounter Note* Telephone Encounter - Anju Pearce MD - 06/20/2024 6:19 PM EDT If she has been holding lunch time insulin, continue to hold it The order was filed with prior directions to get Novolog since FIASP not available Can send new RX in with no insulin at lunch if not needing anything if that helps make if clearer for her. If she has been taking lunch insulin and sugars fine, may keep taking it. [facility]08-16-[facility]24 Telephone encounter Note* Telephone Encounter - Lora Mitchell LPN - 06/20/2024 3:48 PM EDT Please clarify directions on patients Insulin. States that she is confused if she should take lunchtime insulin or hold lunchtime insulin. Directions on prescriptions are not clear. Please advise. [facility]08-15-2024 Telephone encounter Note* Telephone Encounter - Susana Harry LPN - 06/19/2024 4:59 PM EDT Patient notified of providers message and verbalized understanding. [facility]08-15-2024 Miscellaneous Notes* Telephone Encounter - Susana Harry LPN - 06/19/2024 4:59 PM EDT Patient notified of providers message and verbalized understanding. * Addendum Note - Ishmael Davis APRN.CNS - 06/19/2024 4:47 PM EDTAddended by: ISHMAEL DAVIS on: 06/19/2024 04:47 PM Modules accepted: Orders * Telephone Encounter - Ishmael Davis APRN.CNS - 06/19/2024 4:46 PM EDT I sent in both prescriptions. She can pick whichever one she can get. If the [facility] pharmacy is closed and she prefers the Fiasp insulin and wants to wait until tomorrow I think that is okay * Telephone Encounter - Tram Jimenez LPN - 06/19/2024 4:19 PM EDT Patient calling back [facility] pharmacy only one that has Fiasp insulin in stock. Not sure which to pend. Patient was wanting to get picked up today, told her pharmacy closes early. Please advise * Telephone Encounter - Esthela Linder, RITA - 06/19/2024 4:03 PM EDT Pt called and is notified of providers message and instructions. Pt voices understanding. She is going to call [facility] pharmacy and if they have [...] is out of stick. Esthela Linder, RN * Telephone Encounter - Ishmael Davis APRN.CNS - 06/19/2024 3:11 PM EDT Rx sent for Novolog which she was taking before. Can check to see if fiasp available at [facility] pharmacy. * Telephone Encounter - Aidee Morrison LPN - 06/19/2024 2:32 PM EDT Pt calls states will be out of insulin tomorrow. Just got off phone with [facility] they will not gether fiasp- flex touch insulin in until end of month or later [place] [facility] [place] Asking if something else could be called in in its place for her? documented in this encounterCleveland Clinic [facility]08-15-2024 Note* Addendum Note - Ishmael Davis APRN.CNS - 06/19/2024 4:47 PM EDTAddended by: ISHMAEL DAVIS on: 06/19/2024 04:47 PM Modules accepted: Orders [place] [id number] Telephone encounter Note* Telephone Encounter - Ishmael Davis APRN.TRANSCRIPT EVALUATOR - 06/19/2024 4:46 PM EDT I sent in both prescriptions. She can pick whichever one she can get. If the [facility] pharmacy is closed and she prefers the Fiasp insulin and wants to wait until tomorrow I think that is okay [facility]08-15-2024 Telephone encounter Note* Telephone Encounter - Tram Jimenez LPN - 06/19/2024 4:19 PM EDT Patient calling back [facility] pharmacy only one that has Fiasp insulin in stock. Not sure which to pend. Patient was wanting to get picked up today, told her pharmacy closes early. Please advise [facility]08-15-[facility]24 Telephone encounter Note* Telephone Encounter - Esthela Linder, RITA - 06/19/2024 4:03 PM EDT Pt called and is notified of providers message and instructions. Pt voices understanding. She is going to call [facility] pharmacy and if they have the fiasp in stock she will call us back to send it over there. She said her insurance doesn't cover the Novolog anymore that's why she went to the [facility]. I also told her she could call her insurance and see if there is anything else they cover aside from the fiasp as it is out of stick. Esthela Linder, RITA [facility]08-15-2024 Telephone encounter Note* Telephone Encounter - Ishmael Davis APRN.ELIZA - 06/19/2024 3:11 PM EDT Rx sent for Novolog which she was taking before. Can check to see if fiasp available at [facility] pharmacy. [facility]08-15-2024 Telephone encounter Note* Telephone Encounter - Aidee Morrison LPN - 06/19/2024 2:32 PM EDT Pt calls states will be out of insulin tomorrow. Just got off phone with [facility] they will not gether fiasp- flex touch insulin in until end of month or later called a few other stores [facility]. Asking if something else could be called in in its place for her? [facility]07-08-2024 Instructions* Patient Instructions* Ishmael Davis APRN.CNS - 05/12/2024 1:49 PM [...] ear wax. Please schedule an appointment with [facility] for follow-up documented in this encounterC[facility] Clinic [facility]07-08-2024 History of Present illness Narrative* Ishmael Davis APRN.CNS - 05/12/2024 1:00 PM EDT SUBJECTIVE: Dilated Retinal Exam due on 10/02/2023 Behavioral Health Screening Never done HPI Cici Woodward is a 89 year old female. [...] History of CAD s/p CAB years ago, [facility] visits, overdue for follow-up. Currently without symptomatic complaints.. DIABETES MELLITUS: She notes that mid afternoon blood sugars can run low. She has been taking a snack about 4 PM. Noted elevation when she ate scones recently at 300. Otherwise well-controlled. Without report of excessive thirst or increased frequency of urination, chest pain or dyspnea , numbness,tingling or pain in extremities, new or unusual [...] lunch AND 6 Units daily with dinner. Willswitch from Novolog to Fiasp in 2023.. losartan (COZAAR) 50 mg tablet take 1 tablet by mouth once daily insulin glargine (BASAGLAR KWIKPEN U-100 INSULIN) 100 unit/mL (3 mL) Inject 14 Units subcutaneouslydaily at bedtime. Insulin [place], Disposable, (BD ULTRA-FINE JOHN PEN NEEDLE) 32 [...] hypercholesterolemia S/P CABG x 3 01/09/2020 @ [facility] by Dr. Rivera Stroke (cerebrum) ([facility]) 2013 Type II or unspecified type diabetes [...] Negative Negative Ketones, Urine Negative Negative Specific [place], Ur 1.005 - 1.030 1.020 Hemoglobin/Blood,Ur Negative [...] V45.81, ICD10: Z95.1 Has been followed by [facility], overdue for follow-up visit. Endorse scheduling an [...] ears. Consider seeing ENT for clearing of excesswax both ears. - CONSULT TO ENT Ishmael Davis APRN.TRANSCRIPT EVALUATOR ASSESSMENT/PLAN: 1. . Hypertension goal BP (blood pressure) < 150/90 - ICD9: 401.9, ICD10: I10 Blood pressure is controlled. Endorse continue on with current medications unchanged. Has not recently seen [facility] cardiology. Endorse scheduling an appointment to reestablish care. Echocardiogram completed 2019 at [facility] showed LVEF 30%. [facility] 2019. S/P CABG GHOSH-Dx, LAD; SVG-OM Cx, [...] unchanged for now. Schedule follow-up with cardiology, [facility]. Advised: Increase your fluid intake, aim for [...] ear wax. Please schedule an appointment with [facility] for follow-up 4 mo follow up MD Ishmael Zafar APRN.TRANSCRIPT EVALUATOR Medical Decision Making: Problems: Moderate: 1+ chronic illnesses with change Risk: Moderate: Drug management Medical Decision Making Level: 4 - Moderate documented in this encounterC[facility] Clinic [facility]03-14-2024 Miscellaneous Notes* Telephone Encounter - Anju Pearce MD - 01/17/2024 10:47 PM EDT Thought needed glucometer and/or test strips replaced [...] Insulin: Yes Authorizing Provider: ANJU PEARCE MD * Telephone Encounter - Angelica Rogel LPN - 01/17/2024 1:55 PM EDT See message from pharmacy that they [facility] face to face notes. OV from 01/11/24 is not completed. Once completed please fax to pharmacy. Angelica Rogel LPN documented in this encounterCleveland Clinic [facility]03-11-2024 Miscellaneous Notes* Telephone Encounter - Iesha Waddell APRN.CNP - 01/14/2024 3:24 PM EDT Rx sent * Telephone Encounter - Tram Jimenez LPN - 01/14/2024 1:26 PM EDT [facility] calling patient Medicare B insurance only covers [employer] so needingnew rx for [employer] meter and strips and [employer]ile[employer] Lancets please. With all diagnosis codes please, times a day testing, insulin, etc. Asking for copy of last office visit face to face notes faxed to [phone]. Pending rx for items requested. Printed office notes and faxed to [phone] as requested. Please advise Patient has been [...] care: 05/12/2024 Please advise. Thank you. Tram Jimneez LPN. documented in this encounterCleveland Clinic [facility]03-11-2024 Miscellaneous Notes* Telephone Encounter - Maureen Shoemaker LPN - 01/14/2024 10:50 AM EDT Patient has been identified by name and [...] Please advise. Thank you. Maureen Shoemaker LPN. * Telephone Encounter - Charleen Cárdenas - 01/14/2024 10:34 AM EDT Patient has been identified by name and [...] care: 05/12/2024 Please Note: Per Pharmacist at [facility], they can no longer process Medicare prescriptions under Part B. Which the test strips fall under. Please send to [facility] for the patient. Patient is aware of this already. Please advise. Thank you. Charleen Diaz. documented in this encounterCleveland Clinic [facility]03-08-2024 Instructions* Patient Instructions* Anju Pearce MD - 01/11/2024 1:24 PM EST Get water in through tea and soup to get up to 8 cups of water daily. documented in this encounterCleveland Clinic [facility]03-08-2024 History of Present illness Narrative* Anju Pearce MD - 01/11/2024 1:04 PM EST This note was created using BioAnalytixriter. Subjective Cici Woodward is a 88 year old female. 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 Rivera Stroke (cerebrum) ([facility]) 2013 Type II or unspecified type diabetes [...] lunch AND 6 Units daily with dinner. Willswitch from Novolog to Fiasp in 2023.. losartan (COZAAR) 50 mg tablet take 1 tablet by mouth once daily amLODIPine (NORVASC) 10 mg tablet Take 1 tablet by mouth once daily. Dose change, take 1 daily insulin glargine (BASAGLAR KWIKPEN U-100 INSULIN) 100 unit/mL (3 mL) Inject 14 Units subcutaneouslydaily at bedtime. clopidogrel (PLAVIX) 75 mg tablet [...] 1 tablet by mouth once daily. Insulin [place], Disposable, (BD ULTRA-FINE JOHN PEN NEEDLE) 32 [...] deformities, ulcers, calluses, normal distal pulses, and sensitiveto 10 gm monofilament Component Latest Ref Rng [...] Abs Lymph 1.00 - 4.00 k/uL 2.97 Green% % 6.8 Abs Green <0.87 k/uL 0.58 Eosin% % 0.8 Abs Eosin <0.46 k/uL 0.07 Baso% % 0.8 Abs Baso <0.11 k/uL 0.07 Immature Gran % % 0.4 IMMATURE GRANS (ABS) <0.10 k/uL 0.03 NRBC /100 WBC 0.0 Absolute nRBC <0.01 k/uL <0.01 <0.01 <0.01 DTYPE Auto Color Yellow Yellow Clarity Clear Clear Glucose, Urine Negative Negative Bilirubin, Urine Negative Negative Ketones, Urine Negative Negative Specific [place], Ur 1.005 - 1.030 1.020 Hemoglobin/Blood,Ur Negative [...] disease, with long-term current use of insulin ([facility]) E11.22 HGB A1C N18.32 COMP METABOLIC PANEL Z79.4 Fair control. Continue present management 2. 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 Stay hydrated 3. Vitamin D deficiency E55.9 VITAMIN D 25 HYDROXY Continue to adjust vitamin D intake as needed 4. Congestive heart failure, unspecified HF chronicity, unspecified heart failure type ([facility]) I50.9 Stable; able to do normal daily [...] Continue present management 11. Paroxysmal atrial fibrillation ([facility]) I48.0 Rate controlled. Continue present management 12. [...] sleep. Anju Pearce MD documented in this encounterC[facility] Clinic [facility]02-21-2024 History of Present illness Narrative* Galilea Hardy, [facility] - 12/26/2023 3:30 PM EST Images from the original note were not included. Heart Failure Medication Optimization: Pharmacist Visit CC (Reason for Consult): (I50.9) Congestive heart failure, unspecified HF chronicity, unspecified heart failure type (HCC) (primary encounter diagnosis) Last Collaborating Cardiology Provider Visit: 09/20/23 Cici Woodward is a 88 year old female [...] No s/sx of UTI or yeast infections. Medwas expensive with deductible, should not be as expensive with next fill. FBG today was 98. Feels things are going OK with HF. Started going to [facility] and exercising more. Hose Sprayer is through the [facility]. Past medical history reviewed. ROS: [...] lunch AND 6 Units daily with dinner. Willswitch from Novolog to Fiasp in 2023.. empagliflozin (JARDIANCE) 10 mg tablet Take 1 tablet by mouth daily with breakfast. losartan (COZAAR) 50 mg tablet take 1 tablet by mouth once daily amLODIPine (NORVASC) 10 mg tablet Take 1 tablet by mouth once daily. Dose change, take 1 daily insulin glargine (BASAGLAR KWIKPEN U-100 INSULIN) 100 unit/mL (3 mL) Inject 14 Units subcutaneouslydaily at bedtime. clopidogrel (PLAVIX) 75 mg tablet [...] 1 tablet by mouth once daily. Insulin [place], Disposable, (BD ULTRA-FINE JOHN PEN NEEDLE) 32 [...] of Jardiance; tolerating well; no change to kidneyfxn; labs suggest slight dehydration; no f/up with PharmD needed at this time - will have patient continue HF management with PCP team and classified advertising supervisor - Continue current medications - Encouraged drinking sufficient water - Advised to call office if cost issues with Jardiance or ADEs - Hasn't had classified advertising supervisor visit in very long time --> advised to make a priority and get appt scheduled The patient verbalized understanding of the instructions. Patient taking SGLT2-I at conclusion of visit: Yes Follow up: See patient instructions The majority of the pharmacy visit (> 50%) was spent counseling and/or coordinating care for thepatient. Time was 16 minutes. documented in this encounterCleveland Clinic [facility]02-07-2024 Miscellaneous Notes* Telephone Encounter - Galilea Hardy RPh - 12/12/2023 11:53 AM EST Returned call to patient. States she has not met her deductible for 2023. Cost of Jardiance is >$400. Says her deductible is ~$500. Said her first script was $155. Did start Jardiance about 1 week ago. No side effects. Trying to drink more water. F/up with PharmDcurrently scheduled for 12/19, is planning to get labs on Sunday, 12/17. Informed her there is nothing our office can do about a deductible. Advised her to call her insurance to confirm deductible and what the cost of Jardiance will be once deductible is met. Also advisedto ask if Farxiga would be cheaper --> can switch if more affordable. Postponed PharmD visit 1 more week so patient can be on Jardiance for ~3 weeks prior to f/up labs (to get labs 12/24 or 12/25). Advised pt to contact PharmTamara with other issues or if needs to switch to Farxiga. Galilea Hardy PharmD, [facility] Primary Care Clinical Pharmacist * Telephone Encounter - Radha Sharma LPN - 12/12/2023 9:46 AM EST Pt is calling regarding the cost of Jardiance going up. Pt asking about a different tier of medication. Pt asking if she can speak directly to emy Ricci. Radha Sharma LPN documented in this encounterC[facility] Clinic [facility]02-01-2024 Miscellaneous Notes* Telephone Encounter - Anju Pearce MD - 12/06/2023 4:52 PM EST Okayed * Telephone Encounter - Charlotte Nava LPN - 12/06/2023 10:22 AM EST Patient has been identified by name and [...] you. Charlotte Nava LPN. documented in this encounterCleveland Clinic [facility]11-30-2023 Miscellaneous Notes* Telephone Encounter - Julieta Guerrero RN - 10/04/2023 6:21 PM EST Spoke with patient. Given message from provider's office. Patient verbalizes understanding. Julieta Guerrero RN * Telephone Encounter - Anju Pearce MD - 10/04/2023 4:40 PM EST Fiasp another brand of insulin like Humalog [...] with dinner. Authorizing Provider: ANJU PEARCE MD * Telephone Encounter - Leona London - 10/04/2023 3:03 PM EST Pt called again to check the status. She would like to hear from Ishmael Davis or Dr. Pearce office about this to ease her mind that it will get ordered timely at the beginning of the year. * Telephone Encounter - Eduin Alva LPN - 10/04/2023 12:10 PM EST Pt calling to check on status of request. Advised her has been sent to pcp but not reviewed yet. Ptverbalizes understanding. Pt will keep checking with office. Eduin Alva LPN * Telephone Encounter - Dirk Simms RN - 10/03/2023 11:23 AM EST Patient reports the new insulin is spelled [...] know it will be approved by pcp. * Telephone Encounter - Julieta Guerrero RN - 10/01/2023 12:45 PM EST Patient's daughter calling to let PCP know that patient's insurance is going to require she change from Novolog Insulin to Fiasp in November. She is asking if there is any problem with this? Julieta Guerrero RN documented in this encounterCleveland Clinic [facility]11-27-2023 Miscellaneous Notes* Telephone Encounter - Eduin Alva LPN - 10/01/2023 12:53 PM EST Patient calling stating she wants to add her daughter Araceli Carlos and son-in-law Homero Carlos to her chart to be able to discuss her medical information with them. She gives permission to talk to them regarding any of her medical information. Chart has been updated per pt's request. Eduin Alva LPN documented in this encounterC[facility] Clinic [facility]11-16-2023 Instructions* Patient Instructions* Ishmael Davis APRN.ELIZA - 09/20/2023 1:39 PM EST Increase fluid intake, aim for 64 ounces of fluid daily. Make an appointment with [facility] documented in this encounterCleveland Clinic [facility]11-16-2023 History of Present illness Narrative* Ishmael Davis APRN.TRANSCRIPT EVALUATOR - 09/20/2023 1:07 PM EST SUBJECTIVE: Hepatitis B Vaccine(1 of 3 - Risk 3-dose series) Never done Diabetic Foot Exam due on 10/21/2022 Covid-19 Vaccine( season) due on 07/06/2023 Dilated Retinal Exam due on 10/02/2023 HPI Cici Woodward is a 88 year old female. [...] She has CAD s/p CAB years ago, [facility] following. No recent visit. CP/SOB: [...] 100 unit/mL (3 mL) Inject 14 Units subcutaneouslydaily at bedtime. clopidogrel (PLAVIX) 75 mg tablet Take 1 tablet by mouth once daily. allopurinol (ZYLOPRIM) 100 mg tablet Take 1 tablet by mouth once daily. insulin aspart U-100 (NOVOLOG FLEXPEN U-100 INSULIN) 100 unit/mL (3 mL) Take 8- 12 units breakfast, 6 units lunch, and [...] by mouth once daily. As directed Insulin [place], Disposable, (BD ULTRA-FINE JOHN PEN NEEDLE) 32 [...] hypercholesterolemia S/P CABG x 3 01/09/2020 @ [facility] by Dr. Rivera Stroke (cerebrum) ([facility]) 2013 Type II or unspecified type diabetes [...] Abs Lymph 1.00 - 4.00 k/uL 2.97 Green% % 6.8 Abs Green <0.87 k/uL 0.58 Eosin% % 0.8 Abs [...] current medications unchanged. Has not recently seen [facility] cardiology. Endorse scheduling an appointment to reestablish care. Echocardiogram completed 2019 at [facility] showed LVEF 30%. [facility] 2019. S/P CABG GHOSH-Dx, LAD; SVG-OM Cx, [...] unchanged for now. Schedule follow-up with cardiology, [facility]. Ishmael Davis APRN.ELIZA Medical Decision Making: Problems: Moderate: 2+ stable chronic illnesses Risk: Moderate: Drug management Medical Decision Making Level: 4 - Moderate documented in this encounterCleveland [facility]11-09-2023 Miscellaneous Notes* Telephone Encounter - Angelica Rogel LPN - 09/13/2023 1:42 PM EST Spoke with pt and information listed below given. Pt verbalizes understanding. Angelica Rogel LPN * Telephone Encounter - Anju Pearce MD - 09/13/2023 1:28 PM EST The following approved medication requests have been [...] A Refill not appropriate Anju Pearce MD * Telephone Encounter - Charlotte Nava LPN - 09/11/2023 11:39 AM EST Per [facility], Pharmacy checked refuse and recycling worker website, Novolog is on backorder. Requesting analternative be sent. Charlotte Nava LPN documented in this encounterCleveland Clinic [facility]11-06-2023 Miscellaneous Notes* Telephone Encounter - Chalrotte Nava LPN - 09/10/2023 3:39 PM EST Pharmacy is requesting 90 day supply. Charlotte Nava LPN documented in this encounterCleveland Clinic [facility]11-01-2023 History of Present illness Narrative* Iesha Waddell APRN.COLLAR SEPARATOR - 09/05/2023 11:54 AM EDT SUBJECTIVE Cici Woodward is a 88 year old female here today for a check up on her medical problems. Chief Complaint Patient presents with: Blood Pressure: check HPI Cici Woodward is a 88 year old female. [...] 100 unit/mL (3 mL) Inject 14 Units subcutaneouslydaily at bedtime. clopidogrel (PLAVIX) 75 mg tablet Take 1 tablet by mouth once daily. allopurinol (ZYLOPRIM) 100 mg tablet Take 1 tablet by mouth once daily. insulin aspart U-100 (NOVOLOG FLEXPEN U-100 INSULIN) 100 unit/mL (3 mL) Take 8- 12 units breakfast, 6 units lunch, and [...] DM - Uncontrolled E11.65 Insulin: Yes Insulin [place], Disposable, (BD ULTRA-FINE JOHN PEN NEEDLE) 32 [...] Disease With Stage 3b Chronic Kidney Disease ([facility]) - 01/20/2022 S/P Cabg X 4 - 01/09/2020 Diarrhea, Unspecified - 04/28/2019 Hyperuricemia - 01/05/2018 Type 2 Diabetes Mellitus With Stage 3b Chronic Kidney Disease, With Long-Term Current Use of Insulin ([facility]) - 08/25/2014 History of Cva (Cerebrovascular Accident) [...] from today's visit and in agreement with treatmentplan. Questions answered. Agrees to call the office [...] as well as compliance with taking medications. Age- appropriate health preventative measures were discussed. Return if symptoms worsen or fail to improve, for Keep next scheduled appointment.. Iesha Waddell APRN-DAYANA documented in this encounterCleveland Clinic [facility] Hospital10-30-2023 Miscellaneous Notes* Telephone Encounter - Daksha Rivera Ma - 09/03/2023 9:58 AM EDT Pt taking 10 mg daily. Scheduled appt for Wed. Daksha Rivera Ma * Telephone Encounter - Ishmael Davis APRN.CNS - 09/03/2023 7:13 AM EDT Check to see if taking amlodipine 5 mg daily or amlodipine 10 mg daily. If taking amlodipine 5 mg, increase to 10 mg. If she would like she can come in for a BP check this week, schedule if wanting to do so. This can help with adjusting her medications. * Telephone Encounter - Miriam Pepe RN - 08/31/2023 4:44 PM EDT Patient notified of results and provider's instructions. Patient verbalizes understanding. If provider feels like patient would benefit from an ISABELLA or ARB patient is willing to try this. Patient states for the past week her blood pressure has been terrible. Blood pressure was 185/72 this morning. [facility]. Miriam Pepe RN * Telephone Encounter - Ishmael Davis, PARTY BUS DRIVER.TRANSCRIPT EVALUATOR - 08/31/2023 4:34 PM EDT CBC, vitamin D and uric acid are [...] Abs Lymph 1.00 - 4.00 k/uL 2.97 Green% % 6.8 Abs Green <0.87 k/uL 0.58 Eosin% % 0.8 Abs [...] Acid 2.5 - 6.6 mg/dL 5.4 6.5 * Telephone Encounter - Miriam Pepe RN - 08/31/2023 9:27 AM EDT Patient calls and is asking about lab results that patient had done on 08/24/2023. Please review and advise, Miriam ePpe RN documented in this encounterCleveland Clinic [facility]10-19-2023 Instructions* Patient Instructions* Ishmael Davis APRN.CNS - 08/23/2023 3:16 PM [...] Schedule appointment with cardiology documented in this encounterCleveland Clinic [facility]10-19-2023 History of Present illness Narrative* Ishmael Davis APRN.CNS - 08/23/2023 2:58 PM EDT SUBJECTIVE: Hepatitis B Vaccine(1 of 3 - Risk 3-dose series) Never done RSV Vaccine(1 - 1-dose 60+ series) Never done Diabetic Foot Exam due on 10/21/2022 Covid-19 Vaccine(2022- season) due on 07/06/2023 HbA1C due on 07/09/2023 HPI Cici Woodward is a 88 year old female. [...] She has CAD s/p CAB years ago, [facility] following. No recent visit. CP/SOB: none stable DIABETES MELLITUS: She reports home glucose readings have been controlled. No report of excessive thirst or increased frequency of urination, chest pain or dyspnea , numbness, tingling or pain in extremities, new or unusual visual symptoms, low sugar/hypoglycemic reactions, weight loss/gain, lighthe adedness/dizziness and bowel changes/loose stools. Patient's last HgA1C [...] 100 unit/mL (3 mL) Inject 14 Units subcutaneouslydaily at bedtime. clopidogrel (PLAVIX) 75 mg tablet Take 1 tablet by mouth once daily. allopurinol (ZYLOPRIM) 100 mg tablet Take 1 tablet by mouth once daily. insulin aspart U-100 (NOVOLOG FLEXPEN U-100 INSULIN) 100 unit/mL (3 mL) Take 8- 12 units breakfast, 6 units lunch, and [...] 1 tablet by mouth once daily. Insulin [place], Disposable, (BD ULTRA-FINE JOHN PEN NEEDLE) 32 [...] hypercholesterolemia S/P CABG x 3 01/09/2020 @ [facility] by Dr. Rivera Stroke (cerebrum) ([facility]) 2013 Type II or unspecified type diabetes [...] Abs Lymph 1.00 - 4.00 k/uL 2.97 Green% % 6.8 Abs Green <0.87 k/uL 0.58 Eosin% % 0.8 Abs [...] check this week Has not recently seen [facility] cardiology. Endorse scheduling an appointment to reestablish care. Echocardiogram completed 2019 at [facility] showed LVEF 30%. [facility] 2019. S/P CABG GHOSH-Dx, LAD; SVG-OM Cx, SVG-RCA Return to clinic 1 month for recheck of blood pressure. Ishmael Davis APRN.TRANSCRIPT EVALUATOR Medical Decision Making: Problems: Moderate: 2+ stable chronic illnesses Risk: Moderate: Drug management Medical Decision Making Level: 4 - Moderate documented in this encounterCleveland Clinic [facility]10-10-2023 Instructions* Patient Instructions* Anju Pearce MD - 08/14/2023 5:14 PM [...] at least under 140/90. documented in this encounterCleveland Clinic Euclid Hospital10-10-2023 History of Present illness Narrative* Anju Pearce MD - 08/14/2023 5:08 PM EDT This note was created using BioAnalytixriter. Subjective Cici Woodward is a 88 year old female. Patient presents with: F/U 6 months SUBJECTIVE: Cici Woodward is a 88 year old year old lady here today for 6 month follow up appointment for reviewof medical conditions. Noted insulin cost went up after was better for a while. Had COVID last month. Just had severe fatigue. No other symptoms aside from mild cough and sinus symptoms for which was seen in [facility]. Was seeing [facility]. Noted kidney issues--have not tried jardiance or farxiga. 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 Rivera Stroke (cerebrum) ([facility]) 2013 Type II or unspecified type diabetes [...] U-100 INSULIN) 100 unit/mL (3 mL) Take 8- 12 units breakfast, 6 units lunch, and 10 units dinner (Patient taking differently: Inject 4 Units subcutaneously three times a day before meals. Take 9 units breakfast, 4 units lunch, and 7 units dinner) insulin glargine (BASAGLAR KWIKPEN U-100 INSULIN) 100 unit/mL (3 mL) Inject 14 Units subcutaneouslydaily at bedtime. Insulin [place], Disposable, (BD ULTRA-FINE JOHN PEN NEEDLE) 32 [...] PRSV FREE, AGE 65+ YR, HIGH DOSE, QUADRIVALENT(FLUZONE HIGH-DOSE) Above issues addressed with patient. Continue [...] sleep. Anju Pearce MD documented in this encounterCleveland Clinic Euclid Hospital09-19-2023 Miscellaneous Notes* Telephone Encounter - Myriam Whitehead MA - 07/24/2023 10:55 AM EDT Patient notified and verbalized understanding. Myriam Whitehead MA * Telephone Encounter - Myriam Whitehead MA - 07/23/2023 12:24 PM EDT Attempted to contact patient, no answer and no option to leave VM. Will try again. Myriam Whitehead MA * Telephone Encounter - Anju Pearce MD - 07/22/2023 8:19 PM EDT The following approved medication requests have been transmitted electronically. Requested Prescriptions Signed Prescriptions Disp Refills insulin glargine (BASAGLAR KWIKPEN U-100 INSULIN) 100 unit/mL (3 mL) 15 mL 11 Sig: Inject 14 Units subcutaneously daily at bedtime. Authorizing Provider: ANJU PEARCE MD Request not seen till Sunday night. Check up on patient on Sunday * Telephone Encounter - Dirk Simms RN - 07/20/2023 8:54 AM EDT Patient reports she had lunch with Lynne [...] patient know either way. documented in this encounterCleveland Clinic Euclid Hospital09-16-2023 History of Present illness Narrative* Clement Cortes APRN.COLLAR SEPARATOR - 07/21/2023 10:45 AM EDT CC: Patient presents with: Unwell: Not feeling well since Sunday. Some body aches HPI: Cici Woodward is a 88 year old female [...] 74.8 kg (165 lb) SpO2 97% BMI 29.23kg/m General appearance: alert, cooperative, pleasant, in no [...] hypercholesterolemia S/P CABG x 3 01/09/2020 @ [facility] by Dr. Rivera Stroke (cerebrum) ([facility]) 2013 Type II or unspecified type diabetes mellitus without mention of complication, uncontrolled Unspecified cardiovascular disease Unspecified essential hypertension Urgency of urination 2008 PAST SURGICAL HISTORY Procedure Laterality Date ANGIOPLASTY 1988 CABG (3) VEIN GRAFTS & ARTERIAL GRAFT(S) 01/09/2020 @ [facility] by Dr. Rivera COLONOSCOPY FLX DX W/COLLJ SPEC WHEN PFRMD 08/29/07 LAPAROSCOPY SURG CHOLECYSTECTOMY Cholecystectomy, lap LEFT HEART CATH,CUTDOWN 1991 PAST SURGICAL HISTORY OF Tubal ALLERGIES Bactrim [Sulfamethoxazole-Trimethoprim], Codeine, Prednisone, Statins [Vunyuwa-Qcz-Zaf Reductase Inhibitors], and Ultram [Tramadol Hcl] MEDICATIONS clopidogrel (PLAVIX) 75 mg tablet Take 1 tablet by mouth once daily. allopurinol (ZYLOPRIM) 100 mg tablet Take 1 tablet by mouth once daily. insulin aspart U-100 (NOVOLOG FLEXPEN U-100 INSULIN) 100 unit/mL (3 mL) Take 8- 12 units breakfast, 6 units lunch, and 10 units dinner blood sugar diagnostic (FREESTYLE LITE STRIPS) test strip Test blood sugar(s) 3 times daily. Dx: Type 2 DM - Uncontrolled E11.65 Insulin: Yes insulin glargine (BASAGLAR KWIKPEN U-100 INSULIN) 100 unit/mL (3 mL) Inject 11 Units subcutaneouslydaily at bedtime. metoprolol succinate ER (TOPROL XL) 100 mg Take 1 tablet by mouth once daily. rosuvastatin (CRESTOR) 5 mg tablet Take 1 tablet by mouth once daily. As directed amLODIPine (NORVASC) 5 mg tablet Take 1 tablet by mouth once daily. Insulin [place], Disposable, (BD ULTRA-FINE JOHN PEN NEEDLE) 32 [...] NAAT, ROUTINE Patient was instructed to take lgth-pnv-dputhcz medication at this time for supportive therapy [...] plan. Clement Cortes APRN.DAYANA documented in this encounterCleveland Clinic Euclid Hospital08-28-2023 Miscellaneous Notes* Telephone Encounter - Eula Smith LPN - 07/02/2023 11:36 AM EDT Last seen pcp 01/09/23. Next appt is 08/14/23 with pcp * Telephone Encounter - Ofelia Carroll - 07/02/2023 10:57 AM EDT Patient has been identified by name and [...] and advise. Ofelia Carroll documented in this encounterCleveland Clinic Euclid Hospital07-28-2023 Miscellaneous Notes* Telephone Encounter - Miriam Pepe RN - 06/01/2023 9:35 AM EDT Last Office Visit: 01/09/2023 Future Office Visit: 08/14/2023 Requested Prescriptions Pending Prescriptions Disp Refills allopurinol (ZYLOPRIM) 100 mg tablet 90 tablet 3 Sig: Take 1 tablet by mouth once daily. Date of Last Labs: 01/06/2023 documented in this encounterCleveland Clinic Euclid Hospital06-21-2023 Miscellaneous Notes* Telephone Encounter - Gregorio Garcia - 04/25/2023 8:39 AM EDT Patient has been identified by name and [...] and advise. Gregorio Garcia documented in this encounterCleveland Clinic Euclid Hospital05-10-2023 Miscellaneous Notes* Telephone Encounter - Charlotte Nava LPN - 03/14/2023 9:06 AM EDT TC Chelo Corbin, advised that she does have refills [...] Please advise. Thank you. Charlotte Nava LPN * Telephone Encounter - Leona Diaz - 03/14/2023 8:52 AM EDT Pharmacy verified in [facility] Patient has been identified by name [...] advise. Leona Vázquez Pss documented in this encounterCleveland Clinic Euclid Hospital04-24-2023 Miscellaneous Notes* Telephone Encounter - Iesha Waddell APRN.CNP - 02/26/2023 4:22 PM EDT PDMP website checked and validated. All prescriptions have been APPROPRIATELY filled. No suspiciousactivity was identified. 02/26/2023 by Iesha Waddell APRN.CNP * Telephone Encounter - Ofelia Reid LPN - 02/26/2023 2:50 PM EDT Last office visit: 01/09/23 Next appointment scheduled: 08/14/23 * Telephone Encounter - Melva Noble - 02/26/2023 9:46 AM EDT Patient has been identified by name and date of : Yes Requested Prescriptions Pending Prescriptions Disp Refills traMADol (ULTRAM) 50 mg tablet 14 tablet 0 Sig: Take 1 tablet by mouth twice daily for 7 days. RX INSTRUCTIONS: Patient aware RX will be sent to pharmacy. No need to notify patient. Melva Noble documented in this encounterCleveland Clinic Euclid Hospital03-08-2023 Miscellaneous Notes* Telephone Encounter - Anju Pearce MD - 01/10/2023 6:47 PM EST The following approved medication requests have been transmitted electronically. Requested Prescriptions Signed Prescriptions Disp Refills insulin glargine (BASAGLAR KWIKPEN U-100 INSULIN) 100 unit/mL (3 mL) 15 mL 11 Sig: Inject 11 Units subcutaneously daily at bedtime. Authorizing Provider: ANJU PEARCE MD 11 not 1 units * Telephone Encounter - Eula Smith LPN - 01/10/2023 4:02 PM EST Please review units per day. documented in this encounterCleveland Clinic Euclid Hospital03-07-2023 History of Present illness Narrative* Anju Pearce MD - 01/09/2023 2:32 PM EST This note was created using NoteWriter. Subjective Cici Woodward is a 87 year old female. Patient presents with: F/U 6 months: Labs done prior SUBJECTIVE: Cici Woodward is a 87 year old year old lady here today for 6 month follow up appointment for reviewof medical conditions. Reviewed that had fallen and [...] or over 300. Added daughter to [employer] Depression Screening 08/21/2018 09/02/2019 01/01/2021 01/09/2023 [...] hypercholesterolemia S/P CABG x 3 01/09/2020 @ [facility] by Dr. Rivera Stroke (cerebrum) (HCC) 2014 Type II or unspecified type diabetes mellitus without mention of complication, uncontrolled Unspecified cardiovascular disease Unspecified essential hypertension Urgency of urination 2008 Current Outpatient Medications Medication Sig rosuvastatin (CRESTOR) 5 mg tablet Take 1 tablet by mouth once daily. As directed amLODIPine (NORVASC) 5 mg tablet Take 1 tablet by mouth once daily. Insulin [place], Disposable, (BD ULTRA-FINE JOHN PEN NEEDLE) 32 gauge x 5/32 Use one needle for each dose. 1x/day. insulin aspart U-100 (NOVOLOG FLEXPEN U-100 INSULIN) 100 unit/mL (3 mL) Take 8- 12 units breakfast, 6 units lunch, and 10 units dinner clopidogrel (PLAVIX) 75 mg tablet Take 1 tablet by mouth once daily. allopurinol (ZYLOPRIM) 100 mg tablet Take 1 tablet by mouth once daily. insulin glargine (BASAGLAR KWIKPEN U-100 INSULIN) 100 unit/mL (3 mL) Inject 11 Units subcutaneouslydaily at bedtime. (Patient taking differently: Inject 12 [...] Lymph 1.00 - 4.00 k/uL 3.45 2.97 Green% % 7.2 6.8 Abs Green <0.87 k/uL 0.60 0.58 Eosin% % 1.0 [...] indicated. Anju Pearce MD documented in this encounterCleveland Clinic Euclid Hospital02-28-2023 Miscellaneous Notes* Telephone Encounter - Ofelia Franklin CARPENTER - 01/02/2023 9:59 AM EST PATIENT NOTIFIED OF SAME. Order faxed to [facility] as requested. * Telephone Encounter - Iesha Waddell APRN.CNP - 01/02/2023 9:19 AM EST Please let patient know that [facility] is not willing to follow since she is doing PT at [facility], we can do a referral to the [facility] to see if we can get some assistance resources for her that way. Please send referral, thanks! * Telephone Encounter - Miriam Pepe RN - 01/02/2023 8:52 AM EST Delores from [facility] calls and state that patient was not discharged from [facility]. [facility] is planning on seeing patient for the next 2 months. Patient had just finished phase one of PT therapy. Patient was seen yesterday at [facility]. In those notes, it was noted that patient has been living at home by self. Delores states that transportation issues is not a reason for homebound therapy. Insurance will not cover homebound therapy [facility] states that she would like to help patient but unable to help due to insurance not covering home health therapy. Please review and advise, Miriam Pepe RN documented in this encounterCleveland Clinic Euclid Hospital02-27-2023 Miscellaneous Notes* Telephone Encounter - Ofelia Reid LPN - 01/01/2023 4:42 PM EST Detailed message left for Delores as to below information. * Telephone Encounter - Iesha Waddell APRN.CNP - 01/01/2023 4:29 PM EST She was going to [facility] while living with family because she had access to them for transportation. She is now going back to her own home to try and regain independence and that is why she is interested in [facility] services. Please let [facility] know that. * Telephone Encounter - Esthela Linder RN - 01/01/2023 4:24 PM EST Delores with [facility] called in and reports she was going over last OV notes and it said that Pt was going to [facility] for PT. She was asking if the Pt is currently going there. She states if the Pt is going to out patient therapy her insurance wouldn't cover home health. Please call and advise. documented in this encounterCleveland Clinic Euclid Hospital02-27-2023 History of Present illness Narrative* Iesha Waddell APRN.CNP - 01/01/2023 1:32 PM EST SUBJECTIVE Cici Woodward is a 87 year old female here today for a check up on her medical problems. 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 In PT. Going to [facility]. . Pain has been controlled. Following with [facility] for ortho. Her medications were reviewed today and her list is now up to date. Medications Current Outpatient Medications Medication Sig amLODIPine (NORVASC) 5 mg tablet Take 1 tablet by mouth once daily. insulin aspart U-100 (NOVOLOG FLEXPEN U-100 INSULIN) 100 unit/mL (3 mL) Take 8- 12 units breakfast, 6 units lunch, and 10 units dinner clopidogrel (PLAVIX) 75 mg tablet Take 1 tablet by mouth once daily. allopurinol (ZYLOPRIM) 100 mg tablet Take 1 tablet by mouth once daily. insulin glargine (BASAGLAR KWIKPEN U-100 INSULIN) 100 unit/mL (3 mL) Inject 11 Units subcutaneouslydaily at bedtime. (Patient taking differently: Inject 12 [...] by mouth once daily. As directed Insulin [place], Disposable, (BD ULTRA-FINE JOHN PEN NEEDLE) 32 [...] Disease, With Long-Term Current Use of Insulin ([facility]) - 08/25/2014 History of Cva (Cerebrovascular Accident) [...] V54.11, ICD10: S42.92XD (primary diagnosis) Referral for [facility] with [facility]. - NON-[facility] 2. Mixed hyperlipidemia - ICD9: 272.2, ICD10: E78.2 - ROSUVASTATIN 5 MG TABLET 3. Obesity, Class I, BMI 30-34.9 - ICD9: 278.00, ICD10: E66.9 4. Type 2 diabetes mellitus with stage 3b chronic kidney disease, with long-term current use of insulin (HCC) - ICD9: 250.40, 585.3, V58.67, ICD10: E11.22, N18.32, Z79.4 - NON-[facility] Portions of this note [...] from today's visit and in agreement with treatmentplan. Questions answered. Agrees to call the office if questions, concerns of issues with acute symptoms not improving or if they worsen. Return if symptoms worsen or fail to improve, for Keep next scheduled appointment.. Iesha Waddell APRN-DAYANA documented in this encounterCleveland Clinic Euclid Hospital02-20-2023 Miscellaneous Notes* Telephone Encounter - Susana Betancourt LPN - 12/25/2022 11:49 AM EST JESSA 05/24/22 Next OV 01/01/23 * Telephone Encounter - Charleen Anderson Pss - 12/25/2022 8:45 AM EST Patient has been identified by name and date of : Yes Requested Prescriptions Pending Prescriptions Disp Refills amLODIPine (NORVASC) 5 mg tablet 90 tablet 3 Sig: Take 1 tablet by mouth once daily. RX INSTRUCTIONS: Needs today please. Patient aware RX will be sent to pharmacy. No need to notify patient. Charleen Diaz documented in this encounterCleveland Clinic Euclid Hospital10-18-2022 Miscellaneous Notes* Telephone Encounter - Anju Pearce MD - 08/22/2022 3:08 PM EDT Okayed * Telephone Encounter - Angelica Rogel LPN - 08/21/2022 3:20 PM EDT Patient has been identified by name and [...] 05/23/2021 7.5 Thank you. Angelica Rogel LPN * Telephone Encounter - Radha Diaz - 08/19/2022 8:27 AM EDT Patient has been identified by name and [...] Thank you. Radha Diaz documented in this encounterCleveland Clinic Euclid Hospital08-24-2022 Miscellaneous Notes* Telephone Encounter - Esthela Linder RN - 06/28/2022 9:12 AM EDT Araceli with [facility] called over to have urine culture and Pts last OV notes send over. Faxed to # [phone]. documented in this encounterCleveland Clinic Euclid Hospital08-22-2022 Miscellaneous Notes* Telephone Encounter - Paige Devine - 06/26/2022 7:08 PM EDT Left message for patient to return call. Paige Devine * Telephone Encounter - Paige Devine - 06/26/2022 7:07 PM EDT ----- Message from Hal David APRN.CNP sent at 06/26/2022 5:19 PM EDT ----- Urine culture did not show clear evidence of infection. She may continue to take antibiotic if it has been helpful. Recommend follow up with PCP to ensure hematuria has resolved. Hal David CNP documented in this encounterCleveland Clinic Euclid Hospital08-21-2022 History of Present illness Narrative* Patsy Guardado APRN.CNP - 06/25/2022 9:51 AM EDT Subjective The history is provided by the patient. No electronic instrument trades worker was used. 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 Rivera Stroke (cerebrum) ([facility]) 2013 Type II or unspecified type diabetes mellitus without mention of complication, uncontrolled Unspecified cardiovascular disease Unspecified essential hypertension Urgency of urination 2008 I have confirmed and edited as necessary, the [facility] Review of Systems Constitutional: Negative for [...] for higher level of care were discussed indetail warranting prompt ER evaluation. Patsy Guardado APRN.CNP documented in this encounterCleveland Clinic Euclid Hospital08-21-2022 Instructions* Patient Instructions* Patsy Guardado APRN.CNP - 06/25/2022 9:27 AM EDT keflx for 7 days Tylenol as needed for discomfort AZO otc Increase hydration -Follow up with PCP or return to clinic if symptoms not improving in 3 days or if you develop any new (or worsening) symptoms such as fever, chills or back pain go to ER. documented in this encounterCleveland Clinic Euclid Hospital04-04-2022 Miscellaneous Notes* Telephone Encounter - Miriam Pepe RN - 02/06/2022 8:48 AM EDT Patient has been identified by name and date of : Yes Patient phones for refill(s): Pending Prescriptions Disp Refills GUSTAVO CUTLER U-100 INSULIN 100 UNIT/ML (3 ML) SUBCUTANEOUS [...] you. Miriam Pepe RN documented in this encounterCleveland Clinic Euclid Hospital02-29-2020 History of Past illness Narrative* Problem [...] of this encounter (statuses as of 02/06/2022) [facility] of Past illness Narrative* Problem [...] of this encounter (statuses as of 06/25/2022) [facility] of Past illness Narrative* Problem [...] of this encounter (statuses as of 06/26/2022) [facility] of Past illness Narrative* Problem [...] of this encounter (statuses as of 06/28/2022) [facility] of Past illness Narrative* Problem [...] of this encounter (statuses as of 08/22/2022) [facility] of Past illness Narrative* Problem [...] of this encounter (statuses as of 12/25/2022) [facility] of Past illness Narrative* Problem [...] of this encounter (statuses as of 01/01/2023) [facility] of [facility] illness Narrative* Problem [...] of this encounter (statuses as of 01/02/2023) [facility] illness Narrative* Problem [...] of this encounter (statuses as of 01/02/2023) [facility] Narrative* Problem [...] of this encounter (statuses as of 01/11/2023) [facility] illness Narrative* Problem [...] of this encounter (statuses as of 01/12/2023) [facility] Narrative* Problem [...] of this encounter (statuses as of 02/27/2023) [facility] Narrative* Problem [...] of this encounter (statuses as of 03/14/2023) [facility] Narrative* Problem [...] of this encounter (statuses as of 04/25/2023) [facility] Narrative* Problem [...] of this encounter (statuses as of 06/01/2023) [facility] Narrative* Problem [...] of this encounter (statuses as of 07/02/2023) [facility] Narrative* Problem [...] of this encounter (statuses as of 07/21/2023) [facility] Narrative* Problem [...] of this encounter (statuses as of 07/24/2023) [facility] Narrative* Problem [...] of this encounter (statuses as of 08/23/2023) [facility] Narrative* Problem [...] of this encounter (statuses as of 09/03/2023) [facility] Narrative* Problem [...] of this encounter (statuses as of 09/05/2023) [facility] Narrative* Problem [...] of this encounter (statuses as of 09/11/2023) [facility] Narrative* Problem [...] of this encounter (statuses as of 09/14/2023) [facility] Narrative* Problem [...] of this encounter (statuses as of 09/15/2023) [facility] Narrative* Problem [...] of this encounter (statuses as of 09/20/2023) [facility] Narrative* Problem [...] of this encounter (statuses as of 10/02/2023) [facility] Narrative* Problem [...] of this encounter (statuses as of 10/05/2023) [facility] Narrative* Problem [...] of this encounter (statuses as of 12/07/2023) [facility] Narrative* Problem [...] of this encounter (statuses as of 12/12/2023) [facility] Narrative* Problem [...] of this encounter (statuses as of 12/26/2023) [facility] Narrative* Problem [...] of this encounter (statuses as of 01/14/2024) [facility] Narrative* Problem [...] of this encounter (statuses as of 01/14/2024) [facility] Narrative* Problem [...] of this encounter (statuses as of 01/18/2024) [facility] Narrative* Problem [...] of this encounter (statuses as of 01/18/2024) [facility] HospitalChief complaint+Reason for visit Narrative* Chief Complaint HEMATURIA, ABN URETE R BLEEDING [place] referral possible [place] PMB ABN US RENAL Reason for Visit Thickened [facility] Work Phone: Chief complaint+Reason for visit Narrative* Chief Complaint HEMATURIA, ABN URETE R BLEEDING [place] referral possible [place] PMB ABN US RENAL ARM INJURY Reason for Visit [facility] Work Phone: Discharge summary Author Homero Mendosa [facility] Note Date/Time June 14, 2025 11 :15[facility] Medical Records Department [address] [place] [address] Emergency Department Summary 06/14/25 MR#: [id number] Acct: [id number] Name: CICI WOODWARD Rep #:[id number] : [id number] From: Homero Mendosa MD PCP: Dr. Anju Pearce MD Status:RE G ER Location: ED HPI History of Present Illness Chief Complaint: General Illness Detail of Chief Complaint: Just not feeling well. Informant: patient and family Onset/Context/Timing Onset: Weeks Context: Gradual Onset Timing: Continuous Current Severity: Mild Maximum Severity: Mild Narrative Narrative: 89-year-old female who is independently at home history of prior stroke, chronickidney disease, diabetes, hypertension and prior ND with CABG. States she just feels generally weak. She was seen at the [facility] urgent care. Diagnosed with a possible UTI started on cephalexin 254 times a day for 5 days. But the urine culture came back negative. She finished the antibiotics because she was pretty far into the course. Denies currently any abdominal pain. No chest pain or shortness of breath. Denies any dysuria. She has had some mild diarrhea. Denies any melena. 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 Bilateral renal cysts [...] II diabetes mellitus Benign hypertension Home Medications ?Medication ?Instructions ?Recorded ?Last Taken ?Type allopurinol 100 mg tablet 100 mg PO DAILYCM gout 04/2801/03/20 History aspirin 81 mg chewable tablet 81 mg PO DAILY heart Unknown History calcium carbonate-vitamin D3 600 1 ea PO DAILY bones 0 01/17/20 Unknown History mg-125 unit tablet metoprolol succinate 100 mg 100 mg PO DAILY bp 0 Unknown History tablet,extended release 24 hr insulin glargine 100 unit/mL (3 9 unit subcut DAILY Unknown History mL) subcutaneous pen propylene glycol 0.6 % eye drops 1 drp ophthalmic (eye ) DAILY PRN 06/28/20 Unknown History (Systane Balance) Dry Eyes losartan 50 mg tablet 50 mg PO QDAY 09/22/24 Unkno wn History amlodipine 10 mg tablet 10 mg PO QDAY 04/30/25 Unkno wn History insulin aspart U-100 100 unit/mL 7 unit subcut QAC dm 04/30/25 Unknown History (3 mL) subcutaneous pen rosuvastatin 5 mg tablet 5 mg PO QDAY 04/30/25 Unknow n History Allergy/AdvReac Type Severity Reaction Status Date / Time codeine AdvReac Nausea/Vom/ Verified 04/30/25 15:26 Diarrhea morphine AdvReac Nausea/Vom/ Verified 04/30/25 15:26 Diarrhea Family History Aunt Breast cancer Mother Heart disease Father Heart disease Surgical History History of cholecystectomy History of coronary artery bypass graft H/O angioplasty History of left heart catheterization tubal Social History number of children: 2 current occupational status: retired Smoking Status: Former smoker alcohol intake: never substance use type: does not use diet: diabetic caffeine: Yes Type: coffee Number of servings: 1 seatbelt use: always do you feel safe at home: Yes additional social history: 2 children adopted ROS ROS ED ROS Narrative Just not feeling well. Weakness. Denies nausea or vomiting. Denies fever. Denies dysuria. No cough or chest pain. No shortness of breath. No abdominal pain. Has had some diarrhea. Constitutional Constitutional ED: Denies chills or fever(s) Eyes Eyes: Denies blurry vision ENT ENT ED: Denies ear pain Cardiovascular Cardiovascular: Denies chest pain Respiratory/Chest Respiratory/Chest: Denies cough or dyspnea Gastrointestinal Gastrointestinal: Reports diarrhea; Denies abdominal pain, constipation, melena,nausea or vomiting Genitourinary Genitourinary ED: Denies dysuria or hematuria Musculoskeletal Musculoskeletal: Denies arthralgias Integumentary Denies abscess Neurologic Neurologic: Denies headache(s) Psychiatric Psychiatric: Denies anxiety Endocrine Endocrinology: Denies cold intolerance Hematologic/Lymphatic Hematologic/Lymphatic: Reports none Allergic/Immunologic Allergic/Immunologic ED: Denies mouth swelling, tongue swelling or urticaria EXAM Physical Exam Narrative Exam Narrative: Well-appearing 89-year-old female. Family at bedside. Vital signs are stable and afebrile. No acute distress. H EENT exam pupils round react light. No facial droop. Extraocular motions are intact. Normal speech. Mildly dry mucous membranes. No trauma. Neck nontender no lymphadenopathy. Back nontender. Lungs clear to auscultation bilaterally. Heart regular rhythm rate about 75 no murmur. Chest wall and ribs nontender. Abdomen soft, nontender, nondistended, normal bowel sounds without peritoneal signs. She has no reproducible abdominal tenderness in either upper or lower quadrants. There is no hernia or mass. No obstruction. Both the right upper and right lower quadrants are nontender. Moving all 4 extremities. Normal rn progressive care strength bilaterally. Normal dorsi plantarflexion. Calves are nontender without edema. Back nontender. Neurologically she is awake and alert. Answering questions following commands. No focal motor deficits. Very benign exam. Const Vital Signs: 06/14/25 08:17 06/14/25 08:19 06/14/25 08:37 Temperature 98.6 F 98.6 F Temperature Source Temporal Oral Pulse Rate 74 74 Respiratory Rate 16 16 Respiratory Effort Normal Blood Pressure 145/83 H 145/83 H Blood Pressure Mean 103 103 Pulse Ox 96 96 Oxygen Delivery Method Room Air Room Air 06/14/25 09:19 06/14/25 10:19 Temperature 98.6 F 98.6 F Temperature Source Oral Oral Pulse Rate 69 69 Respiratory Rate 22 H 19 H Respiratory Effort Blood Pressure 168/64 H 160/72 H Blood Pressure Mean 98 101 Pulse Ox 97 97 Oxygen Delivery Method Room Air Positive well nourished and well developed; Negative for cachectic, contracturesor unkempt General Appearance ED: well developed and NAD; Negative for unkempt, cachectic, contractures, cyanotic, diaphoretic or pallor Nutritional Appearance: Negative for cachectic HEENT Reports moist mucous membranes Negative for trauma or tenderness Eyes PERRL and EOMs intact bilaterally General Eye ED: Negative for pale conjunctiva or scleral icterus Neck no lymphadenopathy, supple and no JVD Chest Wall inspection of chest normal and palpation of chest normal Resp normal respiratory effort and clear to auscultation bilaterally Cardio regular rate, regular rhythm, S1 normal heart sound, S2 normal heart sound and no murmurs GI normal to inspection, nondistended, normoactive bowel sounds, non-tender, non-distended and no masses Auscultation: normoactive bowel sounds Palpation: soft; Negative for tender, guarding, splenomegaly, mass or rebound tenderness present Back/Spine no CVA tenderness General Back: Negative for CVA tenderness Cervical Spine: Negative for cervical spine tenderness Thoracic Spine / Upper Back: Negative for thoracic spinal tenderness Lumbar Spine / Lower Back: Negative for lumbar spinal tenderness Extremity normal to inspection General Extremety ED: Negative for edema or tenderness General Extremity: Negative for edema Neuro oriented x3 and CN's II-XII intact bilaterally Sensorium / Orientation: alert Motor Exam: strength 5/5 throughout Psych mental status grossly normal Appearance: Negative for unkempt Attitude: No agitated Mood & Affect: Negative for depressed, anxious or tearful Skin no rashes or lesions noted and no wounds General Skin Exam: Negative for jaundice or pallor Lesions: No lesion noted Rashes: No rashes noted Trauma: Negative for abrasion Wounds: Negative for wounds noted MDM MDM MDM Narrative Medical decision making narrative: 89-year-old female just not feeling well benign exam. She may be mildly dehydrated from diarrhea. Screening labs will be obtained she will be treated with IV fluids. Repeat exam patient is doing well at 11 AM. I discussed all of her test resultswith both her and her family at bedside. I spoke to our hospitalist given that her creatinine is gone from 1 9-2.46 and her age she felt most appropriate to admit her to the hospital observe her overnight recheck her kidney function tomorrow. I did already give her a liter normal saline. Patient and family are comfortable the plan. I also have a primary care physician in the [facility] on page to ensure close follow-up after her discharge.. Lab Data Attestation: I reviewed the patient's lab results. Lab results narrative: CBC shows white count 12.3 H&H 9.8 and 30. Platelets 342. Electrolytes show sodium 136. Gap 15. BUN and creatinine of 53 and 2.46. Glucose 156. Liver enzymes unremarkable. Urinalysis shows no white or red cells no nitrites. No bacteria. Chest x-ray chronic changes. Labs: Laboratory Results - last 24 hr 06/14/25 06/14/25 06/14/25 08:52 10:02 10:05 WBC 12.3 H RBC 3.33 L Hgb 9.8 L Hct 30.2 L MCV 90.7 MCH 29.4 MCHC 32.5 RDW Std Deviation 46.9 H RDW Coeff of [place]an 14.0 Plt Count 342 MPV 10.5 Immature Gran % (Auto) 0.300 Neut % (Auto) 77.1 H Lymph % (Auto) 16.9 L Green % (Auto) 4.9 Eos % (Auto) 0.3 Baso % (Auto) 0.5 Absolute Neuts (auto) 9.5 H Absolute Lymphs (auto) 2.09 Nucleated RBC % 0 Sodium 136 Potassium 4.7 Chloride 105 Carbon Dioxide 17.1 L Anion Gap 15 BUN 53 H Creatinine 2.46 H Estim Creat Clear Calc 15.50 L Est GFR (MDRD) Non-Af 18 L BUN/Creatinine Ratio 21.4 H Glucose 156 H Calcium 9.5 Total Bilirubin 0.51 AST 23 ALT 19 Alkaline Phosphatase 94 Total Protein 7.1 Albumin 4.2 Globulin 2.9 Albumin/Globulin Ratio 1.4 Urine Color Yellow Urine Clarity Clear Urine pH 6.0 Ur Specific [place] 1.020 Urine Protein 500 H Urine Glucose (UA) 100 H Urine Ketones Negative Urine Occult Blood 10 H Urine Nitrite Negative Urine Bilirubin Negative Urine Urobilinogen Normal Ur Leukocyte Esterase Negative Urine RBC 0-5 SEEN Urine WBC 0-5 SEEN Ur Squamous Epith Cells 0-5 SEEN Urine Bacteria 0 SEEN Hyaline Casts 0-5 SEEN Urine Mucus 0 SEEN POC Glucose 120 H Radiography Chest X-Ray - ED: Read by ED Physician, Read by Radiologist, Lungs, Mediastinum,Bony Structures, No Acute Disease, Chronic Changes and Cardiomegaly Diagnostic Testing: Clinical Impression(s) from Imaging Studies Chest X-Ray 06/14/25 09:05 IMPRESSION: Cardiomegaly with mild vascular congestion. Reading Location: [facility] Chest x-ray, 2 views, AP and lateral, interpreted by myself and the radiologist shows cardiomegaly with prior sternotomy and sternal wires. Mild basilar vascular congestion. No pneumonia. No effusion. Primarily chronic changes. Rhythm Strip Rhythm Strip: Sinus Rhythm Rate: 72 Ectopy: None EKG Initial EKG: Attestation: I personally reviewed and interpreted this EKG as follows: Interpretation: Sinus Rhythm, No Acute Injury Pattern and RBBB Comments: Normal sinus rhythm rate of 72 no acute signs of ND or ischemia. Right bundle branch block. Discharge Plan Triage Chief Complaint: General Illness ED Provider: Homero Mendosa Dx/Rx/DC Orders Clinical Impression: Chronic kidney disease, Acute dehydration, Diarrhea, History of diabetes mellitus, History of hypertension Prescriptions: No Action insulin glargine 100 unit/mL (3 mL) insulin pen 9 unit subcut DAILY Systane Balance 0.6 % drops 1 drp OPHTHALMIC DAILY PRN (Reason: Dry Eyes) losartan 50 mg tablet 50 mg PO QDAY rosuvastatin 5 mg tablet 5 mg PO QDAY amlodipine 10 mg tablet 10 mg PO QDAY allopurinol 100 MG tablet 100 mg PO DAILYCM Patient Comments: GOUT metoprolol succinate 100 MG tablet extended release 24 hr 100 mg PO DAILY aspirin 81 MG tablet,chewable 81 mg PO DAILY calcium carbonate-vitamin D3 1 EACH tablet 1 ea PO DAILY insulin aspart U-100 100 unit/mL (3 mL) insulin pen 7 unit subcut QAC Rx Instructions: 8 units AM, 3 units, 6 units dinner Primary Care Provider: Anju Pearce Referrals: Anju Pearce MD [Primary Care Provider] - Print Language: Moldovan Disposition Disposition: [facility] What to do if you have Problems For any increased pain, shortness of breath, bleeding, nausea or vomiting, chestpain, or any unexpected problems, contact your Primary Care Provider. Call [facility] ([phone]) or report to the closest Emergency Room. Call 911 if necessary. 06/14/25 1115 <Electronically signed by Homero Mendosa MD> Cosigner Signature (if applicable): CC: Dr. Anju Pearce MD ~ Signed [facility] Work Phone: Evaluation note* Diagnosis Urinary frequency- Primary Acute lower UTI Urinary tract infection, site not specified documented in this encounter [facility] noteNo assessment information [facility]WC[facility] Work Phone: Evaluation note* Diagnosis Onset Date Resolution Status Thickened endometrium acute [facility] Work Phone: Evaluation note* Diagnosis Closed fracture of left shoulder with routine healing, subsequent encounter- Primary Mixed hyperlipidemia Obesity, Class I, BMI 30-34.9 Obesity, unspecified Type 2 diabetes mellitus with stage 3b chronic kidney disease, with long-term current use of insulin (HCC) documented in this encounter [facility] note* Diagnosis Type 2 diabetes mellitus with stage 3b chronic kidney disease, with long-term current use of insulin (HCC)- Primary History of CVA (cerebrovascular accident) Transient ischemic attack (TIA), and cerebral infarction without residual deficits Closed fracture of left shoulder with routine healing, subsequent encounter [facility] Diagnosis Type 2 diabetes mellitus with stage 3b chronic kidney disease, with long-term current use of insulin (HCC)- Primary Stage 3b chronic kidney disease (HCC) Vitamin D deficiency Unspecified vitamin D deficiency Mixed hyperlipidemia Hypertension goal BP (blood pressure) < 150/90 Unspecified essential hypertension Bilateral leg edema Edema Swelling of left hand Positive for macroalbuminuria Proteinuria [facility]* Diagnosis Onset Date Resolution Status Closed fracture of left proximal humerus acute [facility] Work Phone: Evaluation note* Diagnosis Idiopathic gout of multiple sites, unspecified chronicity- Primary S/P CABG x 4 Postsurgical aortocoronary bypass status [facility]* Diagnosis Mixed hyperlipidemia [facility]* Diagnosis Idiopathic gout of multiple sites, unspecified chronicity Hyperuricemia Other abnormal blood chemistry [facility]* Diagnosis 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) Occlusion and stenosis of unspecified precerebral artery with cerebral infarction [facility]* Diagnosis URI, acute- Primary Acute upper respiratory infections of unspecified site [facility]* Diagnosis Encounter for immunization- Primary Need for other specified prophylactic vaccination against single bacterial disease [facility]* Diagnosis Hypertension goal BP (blood pressure) < 150/90- Primary Unspecified essential hypertension Type 2 diabetes mellitus with stage 3b chronic kidney disease, with long-term current use of insulin (HCC) Hypertensive kidney disease with stage 3b chronic kidney disease (HCC) [facility]* Diagnosis Type 2 diabetes mellitus with stage 3b chronic kidney disease, with long-term current use of insulin (HCC) Hypertensive kidney disease with stage 3b chronic kidney disease (HCC) Hypertension goal BP (blood pressure) < 150/90 Unspecified essential hypertension [facility]* Diagnosis Type 2 diabetes mellitus with [...] ventricular response (HCC) [facility]* Diagnosis Type 2 diabetes mellitus with [...] failure type (HCC) [facility]* Diagnosis Mixed hyperlipidemia [facility]* Diagnosis Congestive heart failure, unspecified HF chronicity, unspecified heart failure type (HCC)- Primary [facility]* Diagnosis Type 2 diabetes mellitus with [...] use of medication [facility]* Diagnosis Type 2 diabetes mellitus with hyperglycemia, with long-term current use of insulin (HCC)- Primary [facility]* Diagnosis Screening for diabetic retinopathy- Primary [...] both ear canals [facility]* Diagnosis HYPERTENSION NOS- Primary Unspecified essential [...] single bacterial disease [facility]* Diagnosis HYPERTENSION NOS- Primary Unspecified essential [...] ventricular response (HCC) documented in this encounter [facility] note* Diagnosis HYPERTENSION NOS- Primary Unspecified essential [...] anemia Anemia, unspecified documented in this encounter [facility] note* Diagnosis HYPERTENSION NOS- Primary Unspecified essential [...] Edema, unspecified type [facility] Diagnosis HYPERTENSION NOS- Primary Unspecified essential [...] unspecified hyperlipidemia type [facility] Diagnosis HYPERTENSION NOS- Primary Unspecified essential [...] Unspecified essential hypertension documented in this encounter [facility] note* Diagnosis HYPERTENSION NOS- Primary Unspecified essential [...] Unspecified essential hypertension [facility]* Diagnosis Onset Date Resolution Status Admit Date 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 chronic April 30, 2025 3:19pm Benign hypertension chronic April 30, 2025 3:19pm HLD (hyperlipidemia) chronic April 30, 2025 3:19pm Ischemic cardiomyopathy chronic J 2024 3:19pm Paroxysmal atrial fibrillati on with RVR chronic April 30, 2025 3:19pm [email or web address] [email or web address] Work Phone: Evaluation note* Diagnosis HYPERTENSION NOS- [...] of insulin (HCC) [facility]* Diagnosis HYPERTENSION NOS- Primary Unspecified essential [...] Primary Routine general medical examination at a [facility] Hypertensive kidney disease with stage 3b chronic kidney disease (HCC) Screening for depression Encounter for screening examination for other mental health and behavioral disorders Mild anemia Anemia, unspecified Type 2 diabetes mellitus with stage 3b chronic kidney disease, with long-term current use of insulin (HCC) Chronic renal disease, stage IV (HCC) Chronic kidney disease, Stage IV (severe) [facility]* Diagnosis HYPERTENSION NOS- Primary Unspecified essential [...] Hematuria, unspecified type [facility]* Diagnosis HYPERTENSION NOS- Primary Unspecified essential [...] ejection fraction (HCC)- Primary Heart failure, unspecified History of CVA (cerebrovascular accident) Transient ischemic attack (TIA), and cerebral infarction without residual deficits [facility]* Diagnosis HYPERTENSION NOS- Primary Unspecified essential [...] ejection fraction (HCC)- Primary Heart failure, unspecified History of CVA (cerebrovascular accident) Transient ischemic attack (TIA), and cerebral infarction without residual deficits Idiopathic gout of multiple sites, unspecified chronicity documented in this encounter [facility] Discharge instructionsAdditional Instructions You do not require oxygen at rest, I do recommend wearing 2 L with ambulation and at night while you sleep.[facility] Work Phone: Reason for referral (narrative)No reason for referral information [facility]Mer[facility] Work Phone: Summary Purpose Family History No [...] FoundDocuments on File Type Date Recorded Patient Hall Coordinator Expl anation Advance Directive(s) 01/20/2020 10:12 AM Advance Directive(s) 01/06/2020 11:19 AM Advance Directive(s) 01/05/2020 10:03 AM Documents on File Type Date Recorded Patient Hall Coordinator Expl anation Advance Directive(s) 01/20/2020 10:12 AM Advance Directive Response Recorded Date/ Time Advance Directives Yes May 12 1:59pm Living Will Yes March 16, 2020 1 1:00am Power of Continuity Clerk Yes March 16, 2020 11:00am Advance Directive Response Recorded Date/ Time Name of Medical Power of Continuity Clerk ARACELI ESCAMILLAELL October 03, 2022 2:14pm Advance Directives Yes May 12 12:59pm Living Will Yes October 03, 2 022 2:14pm Power of Continuity Clerk Yes October 03, 2022 2:14pm Advance Directive Response Recorded Date/ Time Name of Medical Power of Continuity Clerk ARACELI CARLOS October 03, 2022 3:14pm Advance Directives Yes May 12 1:59pm Living Will Yes October 03, 022 3:14pm Power of Continuity Clerk Yes October 03, 2022 3:14pm Documents on File Type Date Recorded Patient Hall Coordinator Expl anation Advance Directive(s) 01/20/2020 10:12 AM Advance Directive Response Recorded Date/ Time Living Will Yes January 05, 2025 12:28pm Do you have a Healthcare Power of Continuity Clerk? Yes January 05, 2025 12:28pm Name of Medical Power of Continuity Clerk Araceli Carlos January 05, 2025 12:28pm Advance Directives Yes May 12 1:59pm Advance Directive Response Recorded Date/ Time Do you have a Healthcare Power of Continuity Clerk? Yes June 14, 2025 8:35am Advance Directives Yes May 12 1:59pm Advance Directive Response Recorded Date/ Time Do you have a Healthcare Pow er of Continuity Clerk? Yes June 14, 2025 12:23pm Name of Medical Power of Continuity Clerk cezar mason June 14, 2025 12:23pm Advance Directives Yes May 12 1:59pm Hospital Course Note HNO ID: [id number] Author: Livan Rivera Service: Cardiac Surgery Author Type: Physician Type: Discharge Summary Filed: 01/19/2020 9:04 AM Note Text: DISCHARGE SUMMARY PATIENT NAME: Cici Woodward Code Status: Not on file Highest [...] Team Members: Treatment Team: Attending Provider: Yanet Rivera Consulting: Ann Echeverria Consulting: Cesar Greenfield (more content not included)... Note HNO ID: [id number] Author: Ever Lanier CNP Service: Cardiac Surgery Author Type: Nurse Practitioner Type: Procedures Filed: 01/14/2020 9:39 AM Note Text: BEDSIDE PROCEDURE NOTE Epicardardial Paing wire removal Procedure Date/Start Time: 01/14/2020 9:30 AM Performed by: Philip Lanier CNP Authorized by: Philip Lanier CNP The risks, benefits and alternatives of the procedure were reviewed with the patient/patient sales representative public utilities. The patient/patient sales representative public utilities agreed to proceed. Informed Consent Written Consent Obtained: N/A [place] Protocol Pre-procedure Details: Personnel directly involved with [...] not included)... Procedure Findings Note HNO ID: [id number] Author: Ever Lanier CNP Service: Cardiac Surgery Author Type: Nurse Practitioner Type: Procedures Filed: 01/14/2020 9:39 AM Note Text: BEDSIDE PROCEDURE NOTE Epicardardial Paing wire removal Procedure Date/Start Time: 01/14/2020 9:30 AM Performed by: Philip Lanier CNP Authorized by: Philip Lanier CNP The risks, benefits and alternatives of the procedure were reviewed with the patient/patient sales representative public utilities. The patient/patient sales representative public utilities agreed to proceed. 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 April 30, 2025 3:19pm Benign hypertension April 30, 2025 3:19 pm HLD (hyperlipidemia) April 30, 2025 3:1 9pm Ischemic cardiomyopathy April 30, 2025 3:19pm Paroxysmal atrial fibrillation with RVR April 30, 2025 3:19pm Acute dehydration June 14, 2025 11 :09am Diarrhea June 14, 2025 11 :09am History of diabetes mellitus June 11:09am History of hypertension June 14 11:09am Chronic kidney disease June 14, 2025 11:09am Chief Complaint Admit Date 6 M FU April 30, 2025 3:19 pm ACUTE KIDNEY INJURY June 14, 2025 11 :09am ACUTE KIDNEY INJURY June 14, 2025 11 :31am ACUTE KIDNEY INJURY June 15, 2025 5: 04pm ACUTE KIDNEY INJURY June 16, 2025 11 :46am ACUTE KIDNEY INJURY June 17, 2025 9: 47am ACUTE KIDNEY INJURY June 18, 2025 11 :40am ACUTE KIDNEY INJURY June 19, 2025 4: 14pm ACUTE KIDNEY INJURY June 20, 2025 1: 20pm Reason for Visit Admit Date 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 April 30, 2025 3:19pm Benign hypertension April 30, 2025 3:19 pm HLD (hyperlipidemia) April 30, 2025 3:1 9pm Ischemic cardiomyopathy April 30, 2025 3:19pm Paroxysmal atrial fibrillation with RVR April 30, 2025 3:19pm Acute dehydration June 14, 2025 11 :09am SHA (acute kidney injury) June 14, 025 11:09am Diarrhea June 14, 2025 11 :09am History of diabetes mellitus June 11:09am History of hypertension June 14 11:09am Chronic kidney disease June 14, 2025 11:09am CKD (chronic kidney disease) stage 4, GF R 15-29 ml/min June 14, 2025 11:09am Chief Complaint Admit Date 6 M FU April 30, 2025 3:19 pm ACUTE KIDNEY INJURY June 14, 2025 11 :09am ACUTE KIDNEY INJURY June 14, 2025 11 :31am ACUTE KIDNEY INJURY June 15, 2025 5: 04pm ACUTE KIDNEY INJURY June 16, 2025 11 :46am ACUTE KIDNEY INJURY June 17, 2025 9: 47am ACUTE KIDNEY INJURY June 18, 2025 11 :40am ACUTE KIDNEY INJURY June 19, 2025 4: 14pm ACUTE KIDNEY INJURY June 20, 2025 1: 20pm S/P [facility] 06/20July 02, 2025 1: 43pm Reason for Visit Admit Date 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 April 30, 2025 3:19pm Benign hypertension April 30, 2025 3:19 pm HLD (hyperlipidemia) April 30, 2025 3:1 9pm Ischemic cardiomyopathy April 30, 2025 3:19pm Paroxysmal atrial fibrillation with RVR April 30, 2025 3:19pm Acute dehydration June 14, 2025 11 :09am SHA (acute kidney injury) June 14, 2 025 11:09am Diarrhea June 14, 2025 11 :09am History of diabetes mellitus June 11:09am History of hypertension June 14 11:09am Chronic kidney disease June 14, 2025 11:09am CKD (chronic kidney disease) stage 4, GF 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 ml/min June 14, 2025 11:09am 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 July 02, 2025 1:43pm Benign hypertension July 02, 2025 1: 43pm HLD (hyperlipidemia) July 02, 2025 1 :43pm Ischemic cardiomyopathy July 02 1:43pm Paroxysmal atrial fibrillation with RVR July 02, 2025 1:43pm Health Concerns Infection Onset Date Last Indicated Resolved Time COVID-19 Rule-Out 07/21/2023 07/21/2023 Infection Onset Date Last Indicated Resolved Time COVID-19 Rule-Out 07/21/2023 07/21/2023 07/21/2023 10:49 PM EDT COVID-19 Confirmed 07/21/2023 07/21/2023 Reason for Referral Specialty Diagnoses / Procedures Referred By Contac t Referred To Contact Ent - Otolaryngology Diagnoses Excessive cerumen in both ear canals Procedures CONSULT TO ENT OFFICE/OUTPATIENT [facility] 60 MINUTES Ishmael Davis, [employer] BUS DRIVER.TRANSCRIPT EVALUATOR [address] [place] [address] Referral ID Status Reason Start Date Expiration Date Visits Requested Visits Authorized [id number] Authorized PCP Requested Referral 05/12/2024 05/12/2025 1 1 Specialty Diagnoses / Procedures Referred By Contac t Referred To Contact Cardiology Diagnoses Heart failure with reduced ejection fraction (HCC) Hypertension goal BP (blood pressure) < 150/90 S/P CABG x 4 Paroxysmal atrial fibrillation with rapid ventricular response (HCC) Procedures CONSULT TO CARDIOLOGY OFFICE/OUTPATIENT [facility] 60 MINUTES Ishmael Davis, 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 BUS DRIVER.TRANSCRIPT EVALUATOR [address] [place] [address] Referral ID Status Reason Start Date Expiration Date Visits Requested Visits Authorized [id number] Authorized PCP Requested Referral 09/18/2025 1 1 Specialty Diagnoses / Procedures Referred By Contac t [facility] Diagnoses Heart failure with reduced ejection fraction (HCC) Hypertension goal BP (blood pressure) < 150/90 S/P CABG x 4 Paroxysmal atrial fibrillation with rapid ventricular response (HCC) Procedures ECHO ECHO TTHRC R-T 2D W/WOM-MODE COMPL SPEC&COLR D Ishmael Davis, ALCIRA.TRANSCRIPT EVALUATOR [address] [place] [address] [facility] [address] [place] [address] Referral ID Status Reason Start Date Expiration Date Visits Requested Visits Authorized [id number] New Request Auto-Generat ed Referral 4 09/18/2025 1 1 Additional Source Comments INFORMATION SOURCE (unrecogn ized section and content) DATE CREATED AUTHOR 03/20/2020 [facility] DATE CREATED AUTHOR AUTHOR'S ORGANIZ ATION 05/23/2020 [facility] DATE CREATED AUTHOR AUTHOR'S ORGANIZ ATION 07/05/2025 [facility] DATE CREATED AUTHOR AUTHOR'S ORGANIZ ATION 07/17/2025 [facility] Source Comments (unrecognize d section and content) In the event this informatio n is protected by the Federal Confidentiality of Alcohol and Drug Abuse Patient Records regulations: The Federal rules restrict any use of the information to criminally investigate or prosecute any alcohol or drug abuse patient.[facility] the event this information is protected by the Federal Confidentiality of Alcohol and Drug Abuse Patient Records regulations: The Federal rules restrict any use of the information to criminally investigate or prosecute any alcohol or drug abuse patient.[facility] HospitalIn the event this information is protected by the Federal Confidentiality of Alcohol and Drug Abuse Patient Records regulations: The Federal rules restrict any use of the information to criminally investigate or prosecute any alcohol or drug abuse patient.[facility] HospitalIn the event this information is protected by the Federal Confidentiality of Alcohol and Drug Abuse Patient Records regulations: The Federal rules restrict any use of the information to criminally investigate or prosecute any alcohol or drug abuse patient.[facility] HospitalIn the event this information is protected by the Federal Confidentiality of Alcohol and Drug Abuse Patient Records regulations: The Federal rules restrict any use of the information to criminally investigate or prosecute any alcohol or drug abuse patient.[facility] HospitalIn the event this information is protected by the Federal Confidentiality of Alcohol and Drug Abuse Patient Records regulations: The Federal rules restrict any use of the information to criminally investigate or prosecute any alcohol or drug abuse patient.[facility] HospitalIn the event this information is protected by the Federal Confidentiality of Alcohol and Drug Abuse Patient Records regulations: The Federal rules restrict any use of the information to criminally investigate or prosecute any alcohol or drug abuse patient.[facility] HospitalIn the event this information is protected by the Federal Confidentiality of Alcohol and Drug Abuse Patient Records regulations: The Federal rules restrict any use of the information to criminally investigate or prosecute any alcohol or drug abuse patient.[facility] HospitalIn the event this information is protected by the Federal Confidentiality of Alcohol and Drug Abuse Patient Records regulations: The Federal rules restrict any use of the information to criminally investigate or prosecute any alcohol or drug abuse patient.[facility] HospitalIn the event this information is protected by the Federal Confidentiality of Alcohol and Drug Abuse Patient Records regulations: The Federal rules restrict any use of the information to criminally investigate or prosecute any alcohol or drug abuse patient.[facility] HospitalIn the event this information is protected by the Federal Confidentiality of Alcohol and Drug Abuse Patient Records regulations: The Federal rules restrict any use of the information to criminally investigate or prosecute any alcohol or drug abuse patient.[facility] HospitalIn the event this information is protected by the Federal Confidentiality of Alcohol and Drug Abuse Patient Records regulations: The Federal rules restrict any use of the information to criminally investigate or prosecute any alcohol or drug abuse patient.[facility] HospitalIn the event this information is protected by the Federal Confidentiality of Alcohol and Drug Abuse Patient Records regulations: The Federal rules restrict any use of the information to criminally investigate or prosecute any alcohol or drug abuse patient.[facility] HospitalIn the event this information is protected by the Federal Confidentiality of Alcohol and Drug Abuse Patient Records regulations: The Federal rules restrict any use of the information to criminally investigate or prosecute any alcohol or drug abuse patient.[facility] HospitalIn the event this information is protected by the Federal Confidentiality of Alcohol and Drug Abuse Patient Records regulations: The Federal rules restrict any use of the information to criminally investigate or prosecute any alcohol or drug abuse patient.[facility] HospitalIn the event this information is protected by the Federal Confidentiality of Alcohol and Drug Abuse Patient Records regulations: The Federal rules restrict any use of the information to criminally investigate or prosecute any alcohol or drug abuse patient.[facility] HospitalIn the event this information is protected by the Federal Confidentiality of Alcohol and Drug Abuse Patient Records regulations: The Federal rules restrict any use of the information to criminally investigate or prosecute any alcohol or drug abuse patient.[facility] HospitalIn the event this information is protected by the Federal Confidentiality of Alcohol and Drug Abuse Patient Records regulations: The Federal rules restrict any use of the information to criminally investigate or prosecute any alcohol or drug abuse patient.[facility] HospitalIn the event this information is protected by the Federal Confidentiality of Alcohol and Drug Abuse Patient Records regulations: The Federal rules restrict any use of the information to criminally investigate or prosecute any alcohol or drug abuse patient.[facility] HospitalIn the event this information is protected by the Federal Confidentiality of Alcohol and Drug Abuse Patient Records regulations: The Federal rules restrict any use of the information to criminally investigate or prosecute any alcohol or drug abuse patient.[facility] HospitalIn the event this information is protected by the Federal Confidentiality of Alcohol and Drug Abuse Patient Records regulations: The Federal rules restrict any use of the information to criminally investigate or prosecute any alcohol or drug abuse patient.[facility] HospitalIn the event this information is protected by the Federal Confidentiality of Alcohol and Drug Abuse Patient Records regulations: The Federal rules restrict any use of the information to criminally investigate or prosecute any alcohol or drug abuse patient.[facility] HospitalIn the event this information is protected by the Federal Confidentiality of Alcohol and Drug Abuse Patient Records regulations: The Federal rules restrict any use of the information to criminally investigate or prosecute any alcohol or drug abuse patient.[facility] HospitalIn the event this information is protected by the Federal Confidentiality of Alcohol and Drug Abuse Patient Records regulations: The Federal rules restrict any use of the information to criminally investigate or prosecute any alcohol or drug abuse patient.[facility] HospitalIn the event this information is protected by the Federal Confidentiality of Alcohol and Drug Abuse Patient Records regulations: The Federal rules restrict any use of the information to criminally investigate or prosecute any alcohol or drug abuse patient.[facility] HospitalIn the event this information is protected by the Federal Confidentiality of Alcohol and Drug Abuse Patient Records regulations: The Federal rules restrict any use of the information to criminally investigate or prosecute any alcohol or drug abuse patient.[facility] HospitalIn the event this information is protected by the Federal Confidentiality of Alcohol and Drug Abuse Patient Records regulations: The Federal rules restrict any use of the information to criminally investigate or prosecute any alcohol or drug abuse patient.[facility] HospitalIn the event this information is protected by the Federal Confidentiality of Alcohol and Drug Abuse Patient Records regulations: The Federal rules restrict any use of the information to criminally investigate or prosecute any alcohol or drug abuse patient.[facility] HospitalIn the event this information is protected by the Federal Confidentiality of Alcohol and Drug Abuse Patient Records regulations: The Federal rules restrict any use of the information to criminally investigate or prosecute any alcohol or drug abuse patient.[facility] HospitalIn the event this information is protected by the Federal Confidentiality of Alcohol and Drug Abuse Patient Records regulations: The Federal rules restrict any use of the information to criminally investigate or prosecute any alcohol or drug abuse patient.[facility] HospitalIn the event this information is protected by the Federal Confidentiality of Alcohol and Drug Abuse Patient Records regulations: The Federal rules restrict any use of the information to criminally investigate or prosecute any alcohol or drug abuse patient.[facility] HospitalIn the event this information is protected by the Federal Confidentiality of Alcohol and Drug Abuse Patient Records regulations: The Federal rules restrict any use of the information to criminally investigate or prosecute any alcohol or drug abuse patient.[facility] HospitalIn the event this information is protected by the Federal Confidentiality of Alcohol and Drug Abuse Patient Records regulations: The Federal rules restrict any use of the information to criminally investigate or prosecute any alcohol or drug abuse patient.[facility] HospitalIn the event this information is protected by the Federal Confidentiality of Alcohol and Drug Abuse Patient Records regulations: The Federal rules restrict any use of the information to criminally investigate or prosecute any alcohol or drug abuse patient.[facility] HospitalIn the event this information is protected by the Federal Confidentiality of Alcohol and Drug Abuse Patient Records regulations: The Federal rules restrict any use of the information to criminally investigate or prosecute any alcohol or drug abuse patient.[facility] HospitalIn the event this information is protected by the Federal Confidentiality of Alcohol and Drug Abuse Patient Records regulations: The Federal rules restrict any use of the information to criminally investigate or prosecute any alcohol or drug abuse patient.[facility] HospitalIn the event this information is protected by the Federal Confidentiality of Alcohol and Drug Abuse Patient Records regulations: The Federal rules restrict any use of the information to criminally investigate or prosecute any alcohol or drug abuse patient.[facility] HospitalIn the event this information is protected by the Federal Confidentiality of Alcohol and Drug Abuse Patient Records regulations: The Federal rules restrict any use of the information to criminally investigate or prosecute any alcohol or drug abuse patient.[facility] HospitalIn the event this information is protected by the Federal Confidentiality of Alcohol and Drug Abuse Patient Records regulations: The Federal rules restrict any use of the information to criminally investigate or prosecute any alcohol or drug abuse patient.[facility] HospitalIn the event this information is protected by the Federal Confidentiality of Alcohol and Drug Abuse Patient Records regulations: The Federal rules restrict any use of the information to criminally investigate or prosecute any alcohol or drug abuse patient.[facility] HospitalIn the event this information is protected by the Federal Confidentiality of Alcohol and Drug Abuse Patient Records regulations: The Federal rules restrict any use of the information to criminally investigate or prosecute any alcohol or drug abuse patient.[facility] HospitalIn the event this information is protected by the Federal Confidentiality of Alcohol and Drug Abuse Patient Records regulations: The Federal rules restrict any use of the information to criminally investigate or prosecute any alcohol or drug abuse patient.[facility] HospitalIn the event this information is protected by the Federal Confidentiality of Alcohol and Drug Abuse Patient Records regulations: The Federal rules restrict any use of the information to criminally investigate or prosecute any alcohol or drug abuse patient.[facility] HospitalIn the event this information is protected by the Federal Confidentiality of Alcohol and Drug Abuse Patient Records regulations: The Federal rules restrict any use of the information to criminally investigate or prosecute any alcohol or drug abuse patient.[facility] HospitalIn the event this information is protected by the Federal Confidentiality of Alcohol and Drug Abuse Patient Records regulations: The Federal rules restrict any use of the information to criminally investigate or prosecute any alcohol or drug abuse patient.[facility] HospitalIn the event this information is protected by the Federal Confidentiality of Alcohol and Drug Abuse Patient Records regulations: The Federal rules restrict any use of the information to criminally investigate or prosecute any alcohol or drug abuse patient.[facility] HospitalIn the event this information is protected by the Federal Confidentiality of Alcohol and Drug Abuse Patient Records regulations: The Federal rules restrict any use of the information to criminally investigate or prosecute any alcohol or drug abuse patient.[facility] HospitalIn the event this information is protected by the Federal Confidentiality of Alcohol and Drug Abuse Patient Records regulations: The Federal rules restrict any use of the information to criminally investigate or prosecute any alcohol or drug abuse patient.[facility] HospitalIn the event this information is protected by the Federal Confidentiality of Alcohol and Drug Abuse Patient Records regulations: The Federal rules restrict any use of the information to criminally investigate or prosecute any alcohol or drug abuse patient.[facility] HospitalIn the event this information is protected by the Federal Confidentiality of Alcohol and Drug Abuse Patient Records regulations: The Federal rules restrict any use of the information to criminally investigate or prosecute any alcohol or drug abuse patient.[facility] HospitalIn the event this information is protected by the Federal Confidentiality of Alcohol and Drug Abuse Patient Records regulations: The Federal rules restrict any use of the information to criminally investigate or prosecute any alcohol or drug abuse patient.[facility] HospitalIn the event this information is protected by the Federal Confidentiality of Alcohol and Drug Abuse Patient Records regulations: The Federal rules restrict any use of the information to criminally investigate or prosecute any alcohol or drug abuse patient.[facility] HospitalIn the event this information is protected by the Federal Confidentiality of Alcohol and Drug Abuse Patient Records regulations: The Federal rules restrict any use of the information to criminally investigate or prosecute any alcohol or drug abuse patient.[facility] HospitalIn the event this information is protected by the Federal Confidentiality of Alcohol and Drug Abuse Patient Records regulations: The Federal rules restrict any use of the information to criminally investigate or prosecute any alcohol or drug abuse patient.[facility] HospitalIn the event this information is protected by the Federal Confidentiality of Alcohol and Drug Abuse Patient Records regulations: The Federal rules restrict any use of the information to criminally investigate or prosecute any alcohol or drug abuse patient.[facility] HospitalIn the event this information is protected by the Federal Confidentiality of Alcohol and Drug Abuse Patient Records regulations: The Federal rules restrict any use of the information to criminally investigate or prosecute any alcohol or drug abuse patient.[facility] HospitalIn the event this information is protected by the Federal Confidentiality of Alcohol and Drug Abuse Patient Records regulations: The Federal rules restrict any use of the information to criminally investigate or prosecute any alcohol or drug abuse patient.[facility] HospitalIn the event this information is protected by the Federal Confidentiality of Alcohol and Drug Abuse Patient Records regulations: The Federal rules restrict any use of the information to criminally investigate or prosecute any alcohol or drug abuse patient.[facility] HospitalIn the event this information is protected by the Federal Confidentiality of Alcohol and Drug Abuse Patient Records regulations: The Federal rules restrict any use of the information to criminally investigate or prosecute any alcohol or drug abuse patient.[facility] HospitalIn the event this information is protected by the Federal Confidentiality of Alcohol and Drug Abuse Patient Records regulations: The Federal rules restrict any use of the information to criminally investigate or prosecute any alcohol or drug abuse patient.[facility] HospitalIn the event this information is protected by the Federal Confidentiality of Alcohol and Drug Abuse Patient Records regulations: The Federal rules restrict any use of the information to criminally investigate or prosecute any alcohol or drug abuse patient.[facility] HospitalIn the event this information is protected by the Federal Confidentiality of Alcohol and Drug Abuse Patient Records regulations: The Federal rules restrict any use of the information to criminally investigate or prosecute any alcohol or drug abuse patient.[facility] HospitalIn the event this information is protected by the Federal Confidentiality of Alcohol and Drug Abuse Patient Records regulations: The Federal rules restrict any use of the information to criminally investigate or prosecute any alcohol or drug abuse patient.[facility] HospitalIn the event this information is protected by the Federal Confidentiality of Alcohol and Drug Abuse Patient Records regulations: The Federal rules restrict any use of the information to criminally investigate or prosecute any alcohol or drug abuse patient.[facility] HospitalIn the event this information is protected by the Federal Confidentiality of Alcohol and Drug Abuse Patient Records regulations: The Federal rules restrict any use of the information to criminally investigate or prosecute any alcohol or drug abuse patient.[facility] HospitalIn the event this information is protected by the Federal Confidentiality of Alcohol and Drug Abuse Patient Records regulations: The Federal rules restrict any use of the information to criminally investigate or prosecute any alcohol or drug abuse patient.[facility] Reason for Visit (unrecogniz ed section [...] Date Comments Population Health Navigation Outreach 01/19/2025 [facility] [facility] Reason Comments Nausea & Vomiting Wheezing x this AM Reason Comments Xray Results Reason Onset Date Comments Refill Request 03/18/2025 Reason Comments Medication Request Reason Onset Date Comments Refill Request 04/21/2025 Reason Onset Date Comments Population Health Navigation Outreach 05/06/2025 [facility] TrefisILNexterra [facility] PCSA Reason Comments Medicare Wellness Exam Reason Comments Pelvic Pain pressure x 3 days Reason Onset Date Comments Population Health Navigation Outreach 06/16/2025 [facility] Care Teams (unrecognized sec tion and content) Special Delivery Messenger Relationship Specialty Start Date End Date Anju Pearce MD [address] [place], [place] [address] PCP - General Internal Medicine 08/09/17 Kaylee (Pharmacist), Mignon [address] [place] [address] Pharmacist Pharmacy 12/30/18 Special Delivery Messenger Relationship Specialty Start Date End Date Anju Pearce MD [address] [place], [place] [id number] PCP - General Internal Medicine 08/09/17 Kaylee (Pharmacist), Mignon [address] [place] [address] Pharmacist Pharmacy 12/30/18 Special Delivery Messenger Relationship Specialty Start Date End Date Anju Pearce MD [address] [place] [address] PCP - General Internal Medicine 08/09/17 Niravak (Pharmacist), Mignon [address] [place] [address] Pharmacist Pharmacy 12/30/18 Special Delivery Messenger Relationship Specialty Start Date End Date Anju Pearce MD [address] [facility] [place] [address] PCP - General Internal Medicine 08/09/17 Kaylee (Pharmacist), Mignon [address] [place] [address] Pharmacist Pharmacy 12/30/18 Special Delivery Messenger Relationship Specialty Start Date End Date nAju Pearce MD [address] [facility] [place] [address] PCP - General Internal Medicine 08/09/17 Kaylee (Pharmacist), Mignon [address] [place] [address] Pharmacist Pharmacy 12/30/18 Special Delivery Messenger Relationship Specialty Start Date End Date Anju Pearce MD [address] [facility] [place] [address] PCP - General Internal Medicine 08/09/17 Kaylee (Pharmacist), Mignon [address] [place] [address] Pharmacist Pharmacy 12/30/18 Special Delivery Messenger Relationship Specialty Start Date End Date Anju Pearce MD [address] [facility] [place] [address] PCP - General Internal Medicine 08/09/17 Kaylee (Pharmacist), Mignon [address] [place] [address] Pharmacist Pharmacy 12/30/18 Special Delivery Messenger Relationship Specialty Start Date End Date Anju Pearce MD [address] [facility] [place] [address] PCP - General Internal Medicine 08/09/17 Kaylee (Pharmacist), Mignon [address] [place] [address] Pharmacist Pharmacy 12/30/18 Special Delivery Messenger Relationship Specialty Start Date End Date Anju Pearce MD [address] [facility] [place] [address] PCP - General Internal Medicine 08/09/17 Kaylee (Pharmacist), [address] [place] [address] Pharmacist Pharmacy 12/30/18 Team Status: Active Member [...] ROHAN FELIX Attending Provider, Referring Provider Active Special Delivery Messenger Relationship Specialty Start Date End Date Anju Pearce MD [address] [facility] [place] [address] PCP - General Internal Medicine 08/09/17 Kaylee (Pharmacist), [address] [place] [address] Pharmacist Pharmacy 12/30/18 Special Delivery Messenger Relationship Specialty Start Date End Date Anju Pearce MD [address] [place] [address] PCP - General Internal Medicine 08/09/17 Kaylee (Pharmacist), Mignon [address] [place] [address] Pharmacist Pharmacy 12/30/18 Special Delivery Messenger Relationship Specialty Start Date End Date Anju Pearce MD [address] [place] [address] PCP - General Internal Medicine 08/09/17 Kaylee (Pharmacist), Mignon [address] [place] [address] Pharmacist Pharmacy 12/30/18 Special Delivery Messenger Relationship Specialty Start Date End Date Anju Pearce MD [address] [facility] [place] [address] PCP - General Internal Medicine 08/09/17 Kaylee (Pharmacist), Mignon [address] [place] [address] Pharmacist Pharmacy 12/30/18 Special Delivery Messenger Relationship Specialty Start Date End Date Anju Pearce MD [address] [place] [address] PCP - General Internal Medicine 08/09/17 Kaylee (Pharmacist), Mignon [address] [place] [address] Pharmacist Pharmacy 12/30/18 Special Delivery Messenger Relationship Specialty Start Date End Date Anju Pearce MD [address] [place] [address] PCP - General Internal Medicine 08/09/17 Kaylee (Pharmacist), Mignon [address] [place] [address] Pharmacist Pharmacy 12/30/18 Special Delivery Messenger Relationship Specialty Start Date End Date Anju Pearce MD [address] [place] [address] PCP - General Internal Medicine 08/09/17 Kaylee (Pharmacist), Mignon [address] [place] [address] Pharmacist Pharmacy 12/30/18 Special Delivery Messenger Relationship Specialty Start Date End Date Anju Pearce MD [address] [place] [address] PCP - General Internal Medicine 08/09/17 Kaylee (Pharmacist), Mignon [address] [place] [address] Pharmacist Pharmacy 12/30/18 Special Delivery Messenger Relationship Specialty Start Date End Date Anju Pearce MD [address] [facility] [place] [address] PCP - General Internal Medicine 08/09/17 Kaylee (Pharmacist), Mignon [address] [place] [address] Pharmacist Pharmacy 12/30/18 Special Delivery Messenger Relationship Specialty Start Date End Date Anju Pearce MD [address] [place] [address] PCP - General Internal Medicine 08/09/17 Kaylee (Pharmacist), Mignon [address] [place] [address] Pharmacist Pharmacy 12/30/18 Special Delivery Messenger Relationship Specialty Start Date End Date Anju Pearce MD [address] [place] [address] PCP - General Internal Medicine 08/09/17 Kaylee (Pharmacist), Mignon [address] [place] [address] Pharmacist Pharmacy 12/30/18 Special Delivery Messenger Relationship Specialty Start Date End Date Anju Pearce MD [address] [place] [address] PCP - General Internal Medicine 08/09/17 Kaylee (Pharmacist), Mignon [address] [place] [address] Pharmacist Pharmacy 12/30/18 Special Delivery Messenger Relationship Specialty Start Date End Date Anju Pearce MD [address] [facility] [place] [address] PCP - General Internal Medicine 08/09/17 Galilea Hardy, [facility] [address] [place] [address] Pharmacist Pharmacy 10/31/23 Special Delivery Messenger Relationship Specialty Start Date End Date Anju Pearce MD [address] [facility] [place] [address] PCP - General Internal Medicine 08/09/17 ArlingtonGalilea rivas, [facility] [address] [place] [address] Pharmacist Pharmacy 10/31/23 Special Delivery Messenger Relationship Specialty Start Date End Date Anju Pearce MD [address] [facility] [place] [address] PCP - General Internal Medicine 08/09/17 Special Delivery Messenger Relationship Specialty Start Date End Date Anju Pearce MD [address] [facility] [place] [address] PCP - General Internal Medicine 08/09/17 Special Delivery Messenger Relationship Specialty Start Date End Date Anju Pearce MD [address] [facility] [place] [address] PCP - General Internal Medicine 08/09/17 Special Delivery Messenger Relationship Specialty Start Date End Date Anju Pearce MD [address] [facility] [place] [address] PCP - General Internal Medicine 08/09/17 Special Delivery Messenger Relationship Specialty Start Date End Date Anju Pearce MD [address] [facility] [place] [address] PCP - General Internal Medicine 08/09/17 Special Delivery Messenger Relationship Specialty Start Date End Date Anju Pearce MD [address] [facility] [place] [address] PCP - General Internal Medicine 08/09/17 Special Delivery Messenger Relationship Specialty Start Date End Date Anju Pearce MD [address] [place] [address] PCP - General Internal Medicine 08/09/17 Special Delivery Messenger Relationship Specialty Start Date End Date Anju Pearce MD [address] [place] [address] PCP - General Internal Medicine 08/09/17 Special Delivery Messenger Relationship Specialty Start Date End Date Anju Pearce MD [address] [place] [address] PCP - General Internal Medicine 08/09/17 Special Delivery Messenger Relationship Specialty Start Date End Date Anju Pearce MD [address] [place] [address] PCP - General Internal Medicine 08/09/17 Special Delivery Messenger Relationship Specialty Start Date End Date Anju Pearce MD [address] [place] [address] PCP - General Internal Medicine 08/09/17 Ishmael Davis, PARTY BUS DRIVER.TRANSCRIPT EVALUATOR [address] [place] [address] Senior Mobile Developer Internal Medicine 10/13/24 Iesha Waddell 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 [address] [place] [address] Senior Mobile Developer Internal Medicine 10/13/24 Special Delivery Messenger Relationship Specialty Start Date End Date Anju Pearce MD [address] [place] [address] PCP - General Internal Medicine 08/09/17 Ishmael Davis, PARTY BUS DRIVER.TRANSCRIPT EVALUATOR [address] [facility] [place] [address] Senior Mobile Developer Internal Medicine 10/13/24 Iesha Waddell 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 [address] [facility] [place] [address] Senior Mobile Developer Internal Medicine 10/13/24 Special Delivery Messenger Relationship Specialty Start Date End Date Anju Pearce MD [address] [facility] [place] [address] PCP - General Internal Medicine 08/09/17 Ishmael Davis, PARTY BUS DRIVER.TRANSCRIPT EVALUATOR [address] [place] [address] Senior Mobile Developer Internal Medicine 10/13/24 Iesha Waddell 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 [address] [place] [address] Senior Mobile Developer Internal Medicine 10/13/24 Special Delivery Messenger Relationship Specialty Start Date End Date Anju Pearce MD [address] [facility] [place] [address] PCP - General Internal Medicine 08/09/17 Ishmael Davis, PARTY BUS DRIVER.TRANSCRIPT EVALUATOR [address] [facility] [place] [address] Senior Mobile Developer Internal Medicine 10/13/24 Iesha Waddell 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 [address] [place] [address] Senior Mobile Developer Internal Medicine 10/13/24 Special Delivery Messenger Relationship Specialty Start Date End Date Anju Pearce MD [address] [place] [address] PCP - General Internal Medicine 08/09/17 Ishmael Davis, PARTY BUS DRIVER.TRANSCRIPT EVALUATOR [address] [place] [address] Senior Mobile Developer Internal Medicine 10/13/24 Iesha Waddell APRN.COLLAR SEPARATOR [address] [place] [address] Senior Mobile Developer Internal Medicine 10/13/24 Special Delivery Messenger Relationship Specialty Start Date End Date Anju Pearce MD [address] [place] [address] PCP - General Internal Medicine 08/09/17 Ishmael Davis, PARTY BUS DRIVER.TRANSCRIPT EVALUATOR [address] [place] [address] Senior Mobile Developer Internal Medicine 10/13/24 Iesha Waddell APRN.COLLAR SEPARATOR [address] [place] [address] Senior Mobile Developer Internal Medicine 10/13/24 Special Delivery Messenger Relationship Specialty Start Date End Date Anju Pearce MD [address] [place] [address] PCP - General Internal Medicine 08/09/17 Ishmael Davis, PARTY BUS DRIVER.TRANSCRIPT EVALUATOR [address] [place] [address] Senior Mobile Developer Internal Medicine 10/13/24 Iesha Waddell APRN.COLLAR SEPARATOR [address] [place] [address] Senior Mobile Developer Internal Medicine 01/27/25 Special Delivery Messenger Relationship Specialty Start Date End Date Anju Pearce MD [address] [place] [address] PCP - General Internal Medicine 08/09/17 Ishmael Davis, PARTY BUS DRIVER.TRANSCRIPT EVALUATOR [address] [place] [address] Senior Mobile Developer Internal Medicine 10/13/24 Iesha Waddell 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 [address] [place] [address] Formerly [facility] Internal Medicine 01/27/25 Special Delivery Messenger Relationship Specialty Start Date End Date Anju Pearce MD [address] [place] [address] PCP - General Internal Medicine 08/09/17 Ishmael Davis, PARTY BUS DRIVER.TRANSCRIPT EVALUATOR [address] [place] [address] Formerly [facility] Internal Medicine 10/13/24 Iesha Waddell 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 [address] [place] [address] Formerly [facility] Internal Medicine 01/27/25 Special Delivery Messenger Relationship Specialty Start Date End Date Anju Pearce MD [address] [place] [address] PCP - General Internal Medicine 08/09/17 Ishmael Davis, PARTY BUS DRIVER.TRANSCRIPT EVALUATOR [address] [place] [address] Senior Mobile Developer Internal Medicine 10/13/24 Iesha Waddell APRN.COLLAR SEPARATOR [address] [facility] [place] [address] Formerly [facility] Internal Medicine 01/27/25 Special Delivery Messenger Relationship Specialty Start Date End Date Anju Pearce MD [address] [facility] [place] [address] PCP - General Internal Medicine 08/09/17 Ishmael Davis, PARTY BUS DRIVER.TRANSCRIPT EVALUATOR [address] [facility] [place] [address] Formerly [facility] Internal Medicine 10/13/24 Iesha Waddell APRN.COLLAR SEPARATOR [address] [facility] [place] [address] Formerly [facility] Internal Medicine 01/27/25 Special Delivery Messenger Relationship Specialty Start Date End Date Anju Pearce MD [address] [facility] [place] [address] PCP - General Internal Medicine 08/09/17 Iesha Waddell 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 [address] [facility] [place] [address] Formerly [facility] Internal Medicine 01/27/25 Ishmael Davis, PARTY BUS DRIVER.TRANSCRIPT EVALUATOR [address] [facility] [place] [address] Formerly [facility] Internal Medicine 03/25/25 Special Delivery Messenger Relationship Specialty Start Date End Date Anju Pearce MD [address] [facility] [place] [address] PCP - General Internal Medicine 08/09/17 Iesha Waddell APRN.COLLAR SEPARATOR [address] [facility] [place] [address] Senior Mobile Developer Internal Medicine 01/27/25 Ishmael Davis, ALCIRA.TRANSCRIPT EVALUATOR [address] [place] [address] Senior Mobile Developer Internal Medicine 03/25/25 Special Delivery Messenger Relationship Specialty Start Date End Date Anju Pearce MD [address] [facility] [place] [address] PCP - General Internal Medicine 08/09/17 Iesha Waddell APRN.COLLAR SEPARATOR [address] [facility] [place] [address] Senior Mobile Developer Internal Medicine 01/27/25 Ishmael Davis, PARTY BUS DRIVER.TRANSCRIPT EVALUATOR [address] [place] [address] Senior Mobile Developer Internal Medicine 03/25/25 Special Delivery Messenger Relationship Specialty Start Date End Date Anju Pearce MD [address] [place] [address] PCP - General Internal Medicine 08/09/17 Ishmael Davis, PARTY BUS DRIVER.TRANSCRIPT EVALUATOR [address] [facility] [place] [address] Senior Mobile Developer Internal Medicine 10/13/24 03/24/25 Iesha Waddell APRN.COLLAR SEPARATOR [address] [facility] [place] [address] Senior Mobile Developer Internal Medicine 01/27/25 Ishmael Davis, PARTY BUS DRIVER.TRANSCRIPT EVALUATOR [address] [facility] [place] [address] Senior Mobile Developer Internal Medicine 03/25/25 Team Status: Active Member [...] April 30, 2025 End: April 30, 2025 Special Delivery Messenger Relationship Specialty Start Date End Date Anju Pearce MD [address] [facility] [place] [address] PCP - General Internal Medicine 08/09/17 Iesha Waddell APRN.COLLAR SEPARATOR [address] [facility] [place] [address] Formerly [facility] Internal Medicine 01/27/25 Ishmael Davis, ALCIRA.TRANSCRIPT EVALUATOR [address] [facility] [place] [address] Formerly [facility] Internal Medicine 03/25/25 Special Delivery Messenger Relationship Specialty Start Date End Date Anju Pearce MD [address] [facility] [address] PCP - General Internal Medicine 08/09/17 Iesha Waddell APRN.COLLAR SEPARATOR [address] [facility] [place] [address] Senior Mobile Developer Internal Medicine 01/27/25 Ishmael Davis APRN.TRANSCRIPT EVALUATOR [address] [facility] [place] [address] Senior Mobile Developer Internal Medicine 03/25/25 Team Status: Active Member Role/Relationship Status Dates Dr. Anju Pearce MD Primary Care Provider Active Team Status: Inactive Member Role/Relationship Status Dates Dr. Anju Pearce MD Primary Care Provider Active Start: April 30, 2025 End: April 30, 2025 Dr. Anju Pearce MD Referring Provider Active Start: April 30, 2025 End: April 30, 2025 Marika George PA, PA Attending Provider Active Start: April 30, 2025 End: April 30, 2025 Team Status: Inactive Member Role/Relationship Status Dates Dr. Anju Pearce MD Primary Care Provider Active Start: May 05, 2025 Dr. Cornelia Mora MD Attending Provider Active Start: May 05, 2025 Team Status: Active Member Role/Relationship Status Dates Dr. Anju Pearce MD Primary Care Provider Active Start: June 14, 2025 Dr. Homero Mendosa MD Emergency Provider Active S tart: June 14, 2025 Dr. Ventura Ivy MD Admit Provider Active Star t: June 14, 2025 Dr. Ventura Ivy MD Attending Provider Active Start: June 14, 2025 Special Delivery Messenger Relationship Specialty Start Date End Date Anju Pearce MD [address] [facility] [place] [address] PCP - General Internal Medicine 08/09/17 Iesha Waddell 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 [address] [facility] [place] [address] Senior Mobile Developer Internal Medicine 01/27/25 Ishmael Davis, PARTY BUS DRIVER.TRANSCRIPT EVALUATOR [address] [facility] [place] [address] Formerly [facility] Internal Medicine 03/25/25 Special Delivery Messenger Relationship Specialty Start Date End Date Anju Pearce MD [address] [facility], [place] [address] PCP - General Internal Medicine 08/09/17 Iesha Waddell 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 [address] [facility], [place] [address] Senior Mobile Developer Internal Medicine 01/27/25 Ishmael Davis, PARTY BUS DRIVER.TRANSCRIPT EVALUATOR [address] [facility] [place] [address] Formerly [facility] Internal Medicine 03/25/25 Team Status: Inactive Member Role/Relationship Status Dates Dr. Anju Pearce MD Primary Care Provider Active Start: June 14, 2025 End: June 20, 2025 Dr. Homero Mendosa MD Emergency Provider Active S tart: June 14, 2025 End: June 20, 2025 Dr. Ventura Ivy MD Admit Provider Active Star t: June 14, 2025 End: June 20, 2025 Dr. Ventura Ivy MD Other Provider Active Star t: June 14, 2025 End: June 20, 2025 Dr. Jack Mae MD Attending Provider Active Start: June 14, 2025 End: June 20, 2025 Dr. Ta Phillips MD Other Provider Active Start: June 14, 2025 End: June 20, 2025 Team Status: Active Member Role/Relationship Status Dates Dr. Anju Pearce MD Primary Care Provider Active Start: June 14, 2025 Dr. Homero Mendosa MD Emergency Provider Active S tart: June 14, 2025 Dr. Ventura Ivy MD Admit Provider Active Star t: June 14, 2025 Dr. Ventura Ivy MD Attending Provider Active Start: June 14, 2025 Dr. Ventura Ivy MD Other Provider Active Star t: June 14, 2025 Team Status: Active Member Role/Relationship Status Dates Dr. Anju Pearce MD Primary Care Provider Active Start: June 15, 2025 Dr. Homero Mendosa MD Emergency Provider Active S tart: June 15, 2025 Dr. Ventura Ivy MD Admit Provider Active Star t: June 15, 2025 Dr. Ventura Ivy MD Other Provider Active Star t: June 15, 2025 Dr. Jack Mae MD Attending Provider Active Start: June 15, 2025 Dr. Jack Mae MD Other Provider Active Start: June 15, 2025 Team Status: Active Member Role/Relationship Status Dates Dr. Anju Pearce MD Primary Care Provider Active Start: June 16, 2025 Dr. Homero Mendosa MD Emergency Provider Active S tart: June 16, 2025 Dr. Ventura Ivy MD Admit Provider Active Star t: June 16, 2025 Dr. Ventura Ivy MD Other Provider Active Star t: June 16, 2025 Dr. Jack Mae MD Attending Provider Active Start: June 16, 2025 Dr. Jack Mae MD Other Provider Active Start: June 16, 2025 Team Status: Active Member Role/Relationship Status Dates Dr. Anju Pearce MD Primary Care Provider Active Start: June 17, 2025 Dr. Homero Mendosa MD Emergency Provider Active S tart: June 17, 2025 Dr. Ventura Ivy MD Admit Provider Active Star t: June 17, 2025 Dr. Ventura Ivy MD Other Provider Active Star t: June 17, 2025 Dr. Jack Mae MD Attending Provider Active Start: June 17, 2025 Dr. Jack Mae MD Other Provider Active Start: June 17, 2025 Team Status: Active Member Role/Relationship Status Dates Dr. Anju Pearce MD Primary Care Provider Active Start: June 17, 2025 Dr. Catie Vera MD Attending Provider Active S tart: June 17, 2025 Team Status: Active Member Role/Relationship Status Dates Dr. Anju Pearce MD Primary Care Provider Active Start: June 18, 2025 Dr. Homero Mendosa MD Emergency Provider Active S tart: June 18, 2025 Dr. Ventura Ivy MD Admit Provider Active Star t: June 18, 2025 Dr. Ventura Ivy MD Other Provider Active Star t: June 18, 2025 Dr. Jack Mae MD Attending Provider Active Start: June 18, 2025 Dr. Jack Mae MD Other Provider Active Start: June 18, 2025 Dr. Ta Phillips MD Other Provider Active Start: June 18, 2025 Team Status: Active Member Role/Relationship Status Dates Dr. Anju Pearce MD Primary Care Provider Active Start: June 19, 2025 Dr. Homero Mendosa MD Emergency Provider Active S tart: June 19, 2025 Dr. Vetnura Ivy MD Admit Provider Active Star t: June 19, 2025 Dr. Ventura Ivy MD Other Provider Active Star t: June 19, 2025 Dr. Jack Mae MD Attending Provider Active Start: June 19, 2025 Dr. Jack Mae MD Other Provider Active Start: June 19, 2025 Dr. Ta Phillips MD Other Provider Active Start: June 19, 2025 Team Status: Active Member Role/Relationship Status Dates Dr. Anju Pearce MD Primary Care Provider Active Start: June 20, 2025 Dr. Homero Mendosa MD Emergency Provider Active S tart: June 20, 2025 Dr. Ventura Ivy MD Admit Provider Active Star t: June 20, 2025 Dr. Ventura Ivy MD Other Provider Active Star t: June 20, 2025 Dr. Jack Mae MD Attending Provider Active Start: June 20, 2025 Dr. Jack Mae MD Other Provider Active Start: June 20, 2025 Dr. Ta Phillips MD Other Provider Active Start: June 20, 2025 Team Status: Inactive Member Role/Relationship Status Dates Dr. Anju Pearce MD Primary Care Provider Active Start: July 02, 2025 End: July 02, 2025 Dr. Anju Pearce MD Referring Provider Active Start: July 02, 2025 End: July 02, 2025 Marika PADILLA, PA Attending Provider Active Start: July 02, 2025 End: July 02, 2025 Special Delivery Messenger Relationship Specialty Start Date End Date Anju Pearce MD [address] [facility] [address] PCP - General Internal Medicine 08/09/17 Iesha Waddell APRN.COLLAR SEPARATOR [address] [facility] [address] Senior Mobile Developer Internal Medicine 01/27/25 Ishmael Davis APRN.TRANSCRIPT EVALUATOR [address] [facility] [address] Senior Mobile Developer Internal Medicine 03/25/25 Special Delivery Messenger Relationship Specialty Start Date End Date Anju Pearce MD [address] [place] [address] PCP - General Internal Medicine 08/09/17 Iesha Waddell APRN.COLLAR SEPARATOR [address] [facility] [address] Senior Mobile Developer Internal Medicine 01/27/25 Ishmael Davis APRN.TRANSCRIPT EVALUATOR [address] [facility] [address] Senior Mobile Developer Internal Medicine 03/25/25 Special Delivery Messenger Relationship Specialty Start Date End Date Anju Pearce MD [address] [facility] [address] PCP - General Internal Medicine 08/09/17 Iesha Waddell APRN.COLLAR SEPARATOR [address] [place] [address] Formerly [facility] Internal Medicine 01/27/25 DavisIshmael APRN.TRANSCRIPT EVALUATOR [address] [facility] [place] [address] Formerly [facility] Internal Medicine 03/25/25 Goals (unrecognized section [...] BE BASED ON THE PRIMARY CLINICAL RECORDS. [employer] [facility]. provides no warranty or guarantee of the accuracy or completeness of information in this document.
[2025-07-26 09:35] LABS: Pro- Brain NATRIURETIC PEPTIDE 12037 pg/mL (<=1800)
[2025-07-26 09:37] LABS: Anion Gap 15 (5-15); BUN 37 mg/dL (4-19); BUN/Creat Ratio 17.1 RATIO (10-20); Calcium,Total 9.3 mg/dL (7.6-11.0); Carbon Dioxide 18.3 mmol/L (21.0-32.0); Chloride 103 mmol/L (98-108); Estimated Creatinine Clearance 17.10 ml/min (50-250); Glucose 228 mg/dL (70-99); Potassium 4.3 mmol/L (3.3-5.1)
--- NOTE | 2025-07-26 10:11 | HP.PCM.HOS_ITS ---
[facility] - General General Date of Admission: 07/26/25 Date of Service: 07/26/25 Chief Complaint: Shortness of breath HPI Narrative CONCHA WOODWARD, is a 89 F who presents with shortness of breath. Patient has significant past cardiac history including chronic congestive heart failure with preserved ejection fraction, coronary artery disease status post CABG. Per patient symptoms started 5 to 6 days prior to admission. She did notice increasing shortness of breath with minimal activity. Patient also did notice swelling involving both lower extremity. Patient had apparently been discharged home on oxygen following admission in June 2025 however this was weaned off as outpatient. Imaging studies obtained on admission demonstrated small bilateral pleural effusion and left bibasilar opacity. Was also found to have elevated proBNP. An assessment of acute congestive heart failure made admitted to a monitored bed for further management [facility] Medical History Kidney disease Stroke/cerebrovascular accident Atherosclerosis of coronary artery of [place] heart without angina pectoris Bilateral renal cysts STEMI (ST elevation myocardial infarction) Acute renal failure superimposed on stage 3 chronic kidney disease Paroxysmal atrial fibrillation with RVR Carotid stenosis, right Decubitus ulcer, stage II Thrombocytopenia Acute blood loss anemia Chronic renal failure, stage 3 (moderate) Benign paroxysmal positional vertigo Mild atrial enlargement, left Nonrheumatic mitral valve regurgitation Internal hemorrhoids Diverticulosis Ischemic cardiomyopathy Hypertension Diabetes Physical debility Constipation due to pain medication Gout Basal ganglia infarction Intracranial meningioma Type II diabetes mellitus Benign hypertension Home Medications ?Medication ?Instructions ?Recorded ?Last Taken ?Type allopurinol 100 mg tablet 100 mg PO DAILYCM gout 04/2807/26/25 History aspirin 81 mg chewable tablet 81 mg PO DAILY heart 07/26/25 History calcium carbonate-vitamin D3 600 1 ea PO DAILY bones 0 01/17/20 07/26/25 History mg-125 unit tablet propylene glycol 0.6 % eye drops 1 drp ophthalmic (eye ) QHS Dry Eyes 06/28/20 07/26/25 History (Systane Balance) amlodipine 10 mg tablet 10 mg PO QDAY 04/30/25 Unkno wn History insulin aspart U-100 100 unit/mL 7 unit subcut QAC dm 04/30/25 Unknown History (3 mL) subcutaneous pen rosuvastatin 5 mg tablet 5 mg PO QDAY 04/30/25 History insulin glargine-yfgn 100 unit/mL 14 unit subcut QHS 0 06/14/25 Unknown History (3 mL) subcutaneous pen ferrous sulfate 325 mg (65 mg 325 mg PO DAILY@1200 30 days #30 06/20/25 07/26/25 Rx iron) tablet (FeroSul) tabs pantoprazole 20 mg tablet,delayed 20 mg PO DAILY 30 da ys #30 tabs 06/20/25 Unknown Rx release Held on 07/26/25. Instructions: not taking per family carvedilol 12.5 mg tablet (Coreg) 12.5 mg PO BID #60 t abs 07/02/25 07/26/25 Rx furosemide 40 mg tablet 40 mg PO DAILY PRN edema #30 tabs 07/02/25 Unknown Rx Held on 07/26/25. Instructions: per family it was d/c Allergy/AdvReac Type Severity Reaction Status Date / Time codeine AdvReac Nausea/Vom/ Verified 07/26/25 08:50 Diarrhea morphine AdvReac Nausea/Vom/ Verified 07/26/25 08:50 Diarrhea Family History Aunt Breast cancer Mother Heart disease Father Heart disease Surgical History History of cholecystectomy History of coronary artery bypass graft H/O angioplasty History of left heart catheterization tubal Social History number of children: 2 current occupational status: retired Smoking Status: Former smoker alcohol intake: never substance use type: does not use diet: diabetic caffeine: Yes Type: coffee Number of servings: 1 seatbelt use: always do you feel safe at home: Yes additional social history: 2 children adopted ROS ROS Narrative GENERAL: denies fever, chills, night sweats, weight loss, anorexia HEENT: denies headache, sinus congestion, or drainage, dysphagia RESPIRATORY: shortness of breath, dyspnea on exertion CARDIAC: denies chest pain, palpitations, orthopnea, PND GASTROINTESTINAL: denies abdominal pain, nausea, vomiting, melena, GENITOURINARY: denies dysuria, urgency, frequency, heamaturia EXTREMITY: denies swelling MUSCULOSKELETAL: denies current joint pain or tenderness NEUROLOGIC: denies focal numbness, weakness, tingling HEMATOLOGIC: denies easy bruising and/or hemorrhage INTEGUMENT: denies rashes PSYCHIATRIC: denies suicidal or homicidal ideation Vital Signs Vital Signs Vital Signs: 07/26/25 08:50 07/26/25 08:57 07/26/25 09:01 Temperature 97.8 F Temperature Source Temporal Pulse Rate 88 Respiratory Rate 16 Respiratory Effort Short of Breath Respiratory Depth Shallow Blood Pressure 171/63 H Blood Pressure Mean 99 Pulse Ox 96 96 Oxygen Delivery Method Room Air Room Air Room Air Oxygen Flow Rate (L/min) 07/26/25 09:49 07/26/25 10:00 Temperature Temperature Source Pulse Rate 84 84 Respiratory Rate 19 H 18 Respiratory Effort Respiratory Depth Blood Pressure 172/66 H 160/65 H Blood Pressure Mean 101 96 Pulse Ox 94 98 Oxygen Delivery Method Nasal Cannula Nasal Cannula Oxygen Flow Rate (L/min) 2 2 Weight Weight: 76.7 kg Body Mass Index (BMI) 30.9 Physical Exam Narrative GENERAL: cooperative HEENT: Atraumatic; normocephalic EYES; Anicteric, Normal Conjunctiva NECK; supple, normal thyroid, RESPIRATORY: Diminished to auscultation bibasilar Rales CARDIOVASCULAR: Regular S1 S2, GI: soft, normoactive bowel sounds, : No Renal angle tenderness; EXTREMITIES: Bipedal edema, no clubbing, MUSCULOSKELETAL: no muscle wasting NEURO: Awake; no lateralizing signs. SKIN: No Rash PSYCH; Flat affect Results Lab / Micro Data 07/26/25 09:13 07/26/25 09:13 Labs: Laboratory Results - last 24 hr 07/26/25 09:13: WBC 9.5, RBC 2.96 L, Hgb 8.6 L, Hct 27.0 L, MCV 91.2, MCH 29.1, MCHC 31.9 L, RDW Std Deviation 50.2 H, RDW Coeff of [place] 15.1 H, Plt Count 312, MPV 10.8, Immature Gran % (Auto) 0.400, Neut % (Auto) 77.7 H, Lymph % (Auto) 14.8 L, [place] % (Auto) 6.2, Eos % (Auto) 0.4, Baso % (Auto) 0.5, Absolute Neuts (auto) 7.4, Absolute Lymphs (auto) 1.41, Nucleated RBC % 0, Sodium 136, Potassium 4.3, Chloride 103, Carbon Dioxide 18.3 L, Anion Gap 15, BUN 37 H, C reatinine 2.18 H, Estim Creat Clear Calc 17.10 L, Est GFR (MDRD) Non-Af 21 L, BUN/Creatinine Ratio 17.1, Glucose 228 H, Calcium 9.3, [place] [address] H Imaging Radiology Impression Chest X-Ray 07/26/25 09:15 IMPRESSION: 1. Small bilateral pleural effusions. 2. Left basilar opacity, likely atelectasis or an infiltrate. Reading Location: [facility] [place] Assessment & Plan Assessment/Plan (1) Congestive heart failure (CHF): QUALIFIERS: Heart failure type: diastolic Heart failure chronicity: acute on chronic Qualified Code(s): I50.33 - Acute on chronic diastolic (congestive) heart failure PLAN: Plan Patient is an 89-year-old lady presenting with progressive shortness of breath diagnosed with acute congestive heart failure 1. Acute on chronic congestive heart failure with preserved ejection fraction 2D echo obtain on 06/19/2025 did show Normal LV size. Mild eccentric left ventricular hypertrophy. The estimated ejection fraction is 55 %. Left ventricular systolic function is normal. Moderate (2+) eccentric mitral valve insufficiency. Mild to moderate (1-2+) tricuspid valve insufficiency. Pulmonary artery systolic pressure is 36 mmHg. Stage 2 diastolic dysfunction. Patient has been admitted to monitored bed treatment initiated with strict input and output, daily weight, fluid restriction, low-sodium diet and diuretic therapy with furosemide 2. Acute hypoxia ? Secondary to CHF patient was recently discharged home on home oxygen which has since been weaned off. May need to be reevaluated prior to being discharged 3. Anemia ? Secondary to chronic disorder monitoring H&H and transfuse if patient becomes symptomatic or hemoglobin falls below 7 4. Chronic kidney disease stage IV ? Patient kidney function at baseline. Renal ultrasound obtained on 06/15/2025 demonstrated normal ultrasound 5. Hypertension ? Blood pressure controlled, home medications continued with dose adjustment as needed 6. Diabetes mellitus type II - Patient is on long-acting insulin did continue also placed on Accu-Cheks a.c. and at bedtime and covered with sliding scale insulin 7. Coronary artery disease ? previous CABG(CHAUDHARI to diagonal sequenced to LAD, SVG to OM sequenced to RPL) in January 2020. Patient remains on guideline directed medical therapy 8. Paroxysmal atrial fibrillation ? Per history patient has no recollection 9. Previous CVA ? With history of basal ganglia infarction 10. History of intracranial meningioma ? Treated with laser [facility] at the [facility] 11. History of gout ? Patient is on allopurinol plan is to resume following med rec 12. Dyslipidemia ?Patient is on statin therapy, continued at home dose 13. DVT prophylaxis ? Subcu heparin Time spent in the patient's overall evaluation,decision-making process, review of diagnostic data, adjustment of management, discussion with other providers, nursing nursing and ancillary staff involved in patient's care documentation, 75 Minutes CODE STATUS full code Charges/Coding Visit Charges Inpatient E&M: 96420 Init Hosp L3
--- OUTSIDE RECORDS SUMMARY | 2025-07-26 10:23 | XMS RPT_ITS | CCD ---
Author Organization [facility] Care Team Providers Care Product Merchandiser Name Role Phone Anju Pearce MD Primary [...] Pearce Referring Provider RANDY Betancourt Attending Provider [facility] [place] Unavailable Anju Pearce MD Primary Care Provider Ryan GLOBAL CTO.BARBED WIRE MACHINE OPERATOR, Ishmael Unavailable Bairon GLOBAL CTO.MACHINE BOSS, Iesha Unavailable Bairon GLOBAL CTO.MACHINE BOSS, Iesha Unavailable Bairon GLOBAL CTO.MACHINE BOSS, Iesha Unavailable Davis GLOBAL CTO.BARBED WIRE MACHINE OPERATOR, Ishmael Unavailable Davis GLOBAL CTO.BARBED WIRE MACHINE OPERATOR, Ishmael Unavailable Kelvin RIVERA, Dr. Anju Mcdonald Primary Care Provider [phone] Russell MOLINA, Dr. Costa Attending Provider Russell MOLINA, Dr. Costa Emergency Provider Kelvin RIVERA, Dr. Anju Mcdonald Referring Provider Marika Brown Attending Provider Kelvin RIVERA, Dr. Anju Mcdonald Primary Care Provider Morgan RIVERA, Dr. Locke Attending Provider Deondre RIVERA, Dr. Valentin Emergency Provider [phone] Cata RIVERA, Dr. Whitehead Admit Provider Unavailable Cata RIVERA, Dr. Whitehead Attending Provider Unavailrach Mora MD, Dr. Locke Attending Provider Cata RIVERA, Dr. Whitehead Other Provider Unavailable Tu RIVERA, Dr. Jack Lantigua Attending Provider lAan RIVERA, Dr. Chappell Other Provider Cata RIVERA, [...] Admitting Unavailable [employer] Unavailable [place], Anuj D Primary Care Unavailable Alan, Ta Consulting [...] Translations: [CODEINE] Drug Allergy 08-31-20 05 Vomiting [facility] Work Phone: (2 sources) HMG-CoA reductase inhibitor; Translations: [[id number]-KYM-QPZ REDUCTASE INHIBITORS] Propensity to adverse reactions 05-25-20 09 Intolerance [facility] Work Phone: (20 sources) predniSONE; Translations: [PREDNISONE] Drug Allergy 09-05-20 12 Vomiting [facility] (20 sources) Sulfamethoxazole / Trimethoprim; Translations: [SULFAMETHOXAZOLE-T RIMETHOPRIM] Drug Allergy 06-10-20 08 Vomiting [facility] (20 sources) traMADol; Translations: [TRAMADOL HCL] Drug Allergy 01-18-20 13 Vomiting [facility] Work Phone: (20 sources) HMG-CoA reductase inhibitor Propensity to adverse reactions 05-25-20 09 Intolerance [facility] Work Phone: (5 sources) Morphine Drug Allergy 10-04-20 22 Nausea/Vom/Cecy rrhea [facility] (20 sources) dapagliflozin; Translations: [DAPAGLIFLOZIN] Drug Allergy 09-12-20 24 GI Upset [facility] (1 source) Codeine Drug Allergy 07-02-20 25 [facility] Repository (1 source) Morphine Drug Allergy 07-02-20 25 [facility] Repository Medications Current Medications Medication Drug [...] on above: Take 1 capsule by mo [facility] twice daily for 7 days. cholecalciferol 0.025 mg oral capsule (20 sources) Vitamin D Start: 08-30-20 20 take [id number] [IU] by mouth once daily Cholecalciferol, Vitamin D3, 25 mcg (1,000 unit) cap Take 1 capsule by mouth once daily. (1000 to 2000 IU daily fine) 08/30/2020 Active Comment on above: Take 1 capsule by [facility] once daily. (1000 to 2000 IU daily [...] disease, with long-term current use of insulin ([facility]) , Hypertensive kidney disease with stage 3b chronic kidney disease ([facility]) , Hypertension goal BP (blood pressure) Take 1 tablet by mouth once daily. 90 tablet 1 04/02/2025 Active Comment on above: Take 1 tablet by crystal th once daily. take 1 tablet by crystal [...] 3:11pm Closed fracture of left proximal humerus [id number] actuat albuterol 0.09 mg/actuat metered dose [...] application in both eyes daily at bedtime. [place]-3 Fatty Acids-Fish Oil (10 sources) Start: 0 End: 2 take 2 capsules by mouth once daily [place]-3 Fatty Acids-Fish Oil Discontinued 2 CAP PO DAILY June 28, 2020 1:09pm July 13, 2022 2:15pm Start: 06-28-2020 End: 07-13-2022 take 2 capsules by mouth once daily [place]-3 Fatty Acids-Fish Oil Discontinued 2 CAP PO DAILY June 28, 2020 2:09pm July 13, 2022 3:15pm Start: 06-28-2020 take 2 capsules by m out once daily [place]-3 Fatty Acids-Fish Oil Active 2 CAP PO DAILY June 28, 2020 2:09pm Start: 01-03-2020 End: 06-28-2020 [place]-3 Fatty Acids-Fish Oil Discontinued 1 EACH PO DAILY January 03, 2020 12:00am June 28, 2020 1:10pm Start: 01-03-2020 End: 06-28-2020 [place]-3 Fatty Acids-Fish Oil Discontinued 1 EACH PO DAILY January 03, 2020 1:00am June 28, 2020 2:10pm [place]-3 Fatty Acids-Fish Oil 1 EACH capsule (4 sources) Start: 01-03-2020 End: 06-28-2020 [place]-3 Fatty Acids-Fish Oil 1 EACH capsule Discontinued 1 NMA PO DAILY January 03, 2020 1:00am June 28, 2020 2:10pm supplement Start: 01-03-2020 End: 06-28-2020 [place]-3 Fatty Acids-Fish Oil 1 EACH capsule Discontinued 1 NMA PO DAILY January 03, 2020 1:00am June 28, 2020 2:10pm [place]-3 Fatty Acids-Fish Oil 300-1,000 mg capsule (4 sources) Start: 06-28-2020 End: 07-13-2022 [place]-3 Fatty Acids-Fish Oil 300-1,000 mg capsule Discontinued 2 NMA PO DAILY June 28, 2020 2:09pm July 13, 2022 3:15pm supplement Start: 06-28-2020 End: 07-13-2022 [place]-3 Fatty Acids-Fish Oil 300-1,000 mg capsule Discontinued [...] January 07, 2025 1:10am polyethylene glycol 3350 15304 mg powder for oral solution (9 sources) [...] by crystal once daily as directed sennosides, prison 8.6 mg oral tablet (9 sources) Start: [...] Acute and unspecified renal failure (15 sources) [id number] renal failure; Translations: [Acute kidney failure, unspecified] [...] 02-22-2015 02-22-2015 Episodic Other aftercare (1 source) [employer] (current) use of insulin; Translations: [Type 2 [...] PT 07-10-2025 Inital Evaluation (1) - PT [facility] Physical Therapy [facility] [address] [place] [address] [address] [place] [address] / REHABILITATION SERVICES INITIAL EVALUATION MR#: [id number] Acct: [id number] Name: CICI WOODWARD Rep #: [id number] : 1935 89 From: Steven Chakraborty DPT, OCS, CSCS Referring Dr.: Dr. Jack Mae MD Status: REG RCR Insurance: MEDICARE PART A B [facility] INS Patient's Visit Information Visit Information [...] days 3 weeks ago. Went home to [facility] b/c not enough energy to go home alone. Used to living in [place] steps, no cane no walker prior. [facility] house is smaller. Still doesn't feel the best and feels weak. Not doing any exercises at home. Sits alot. Watches TV. alot. Moves now and then. Not leaving house much. Used to drive. and to [facility] [address]. used to go to mu-ism adn to the store but not lately. [...] to be FAXED BACK to us at [phone] for Medicare purposes. For Medicare only, by signing this I certify the plan of care. Please let me know if there are questions or concerns regarding this plan of care. Physician Signature: Date: 07/10/25 1522 CC: Dr. Anju Pearce MD; Dr. Jack Mae MD EBG Signed Normal [facility] Cardiology Visit Reporton Cardiology Visit Report [facility] [address] [place], [place] [address]reji. [address] [place] [address] OFFICE VISIT Date of Service: 07/02/25 MR#: [id number] Acct: [id number] Name: TRACECICI Rep #: [id number] : 1935 Provider: RANDY Silverio Age/Sex: 89/F Location: [facility] Status: Signed HPI HPI History of Present Illness Details: Cici Woodward is an 89-year-old female that presents here today for a cardiovascular follow-up. She was last to see us in the office in 2001. She has a history of coronary artery disease requiring bypass surgery. On January 09, 2020 she underwent a four-vessel bypass at [facility]. (GHOSH to diagonal sequenced to LAD, SVG to OM sequenced to RPL). Patient was found to have an EF of around 30% when she had presented with SD. This has since resolved. She has CKD [...] Pulse Source NIBP Intake Visit Reasons: S/P [facility] 06/20 Steel Chipper Required: No Is patient in pain?: No [...] you fallen in the past year?: Yes [facility] Medical History Kidney disease Stroke/cerebrovascular accident Atherosclerosis of coronary artery of [place] heart without angina pectoris Bilateral renal cysts [...] SOB w (more content not included)... Normal [facility] Absolute lymphocyte countOrd ered By: Jack Mae on 06-20-2025 Lymphocytes Auto (Unsp spec) [#/Vol] 2.03 10*3/uL 0.83-4.51 [facility] Absolute neutrophil countOrd ered By: Jack Mae on 06-20-2025 Neutrophils (Bld) [#/Vol] 6.3 10*3/uL 2.0-7.7 [facility] Anion gap in Serum or Plasma Ordered By: Jack Mae on 06-20-2025 Anion gap [Moles/Vol] 14 mmol/L 5-15 [facility] Automated lymphocyte count a s percentage of total leukocytesOrdered By: Jack Mae on 06-20-2025 Lymphocytes/100 WBC Auto (Unsp spec) 22.2 % 19-41 [facility] BUN/creatinine ratioOrdered By: Jack Mae on 06-20-2025 Urea nitrogen/Creatinine [Mass ratio] 25.1 mg/mg High 10- [facility] Basic Metabolic Profile (BMP )on 06-20-2025 BUN/CRE 25.1 RATIO High [facility] Comment on above: Performed By: #### L 100.0100, L500.2500 #### [facility] [address] [place], [address] Calcium [Mass/Vol] 9.4 mg/dL Normal 7.6-11.0 [facility] Comment on above: Performed By: #### L 100.0100, L500.2500 #### [facility] [address] [place], [address] Chloride [Moles/Vol] 107 mmol/L Normal 98-108 [facility] Comment on above: Performed By: #### L 100.0100, L500.2500 #### [facility] [address] [place], [address] CO2 [Moles/Vol] 17.5 mmol/L Low 21.0-32.0 [facility] Comment on above: Performed By: #### L 100.0100, L500.2500 #### [facility] [address] [place], [address] Creatinine [Mass/Vol] 2.26 mg/dL High 0.70-1.20 [facility] Comment on above: Performed By: #### L 100.0100, L500.2500 #### [facility] [address] [place], [address] ECRCL 16.12 ml/min Low 50-250 [facility] Comment on above: Performed By: #### L 100.0100, L500.2500 #### [facility] [address] [place], [address] GAP 14 Normal 5-15 [facility] Comment on above: Performed By: #### L 100.0100, L500.2500 #### [facility] [address] [place], [address] GFR/1.73 sq M.predicted among non-blacks MDRD (S/P/Bld) [Vol rate/Area] 20 mL/min/{1.73_m2} Low >60 [facility] Comment on above: Result Comment: mL/m in/1.73m2 CKD-EPI Creatinine Equation (2020) Performed By: #### L 100.0100, L500.2500 #### [facility] [address] [place], [address] Glucose [Mass/Vol] 120 mg/dL High 70-99 [facility] Comment on above: Performed By: #### L 100.0100, L500.2500 #### [facility] [address] [place], [address] Potassium [Moles/Vol] 4.7 mmol/L Normal 3.3-5.1 [facility] Comment on above: Performed By: #### L 100.0100, L500.2500 #### [facility] [address] [place], [address] Sodium [Moles/Vol] 138 mmol/L Normal 133-145 [facility] Comment on above: Performed By: #### L 100.0100, L500.2500 #### [facility] [address] [place], [address] Urea nitrogen [Mass/Vol] 57 mg/dL High 4-19 [facility] Comment on above: Performed By: #### L 100.0100, L500.2500 #### [facility] [address] [place], [address] Basophil percentageOrdered B y: Jack Tu on 06-20-2025 Basophils/100 WBC (Bld) 0.7 % 0-1 [facility] Bedside Glucoseon 06-20-2025 FINGERSTICK GLU 196 mg/dL High 74-106 [facility] Comment on above: Result Comment: SHONNA CLAYTONENT OF PATIENT CARE PER NURSING PROTOCOL Performed By: #### L 501.080 #### [facility] [address] [place], [address] CBC W/Diff, Automatedon 06-05 Absolute Lymph 2.03 X10 3/uL Normal 0.83-4.51 [facility] Comment on above: Performed By: #### L 100.0100, L500.2500 #### [facility] [address] [place], [address] Absolute Neut 6.3 X10 3/uL Normal 2.0-7.7 [facility] Comment on above: Performed By: #### L 100.0100, L500.2500 #### [facility] [address] [place], [address] Basophils/100 WBC (Bld) 0.7 % Normal 0-1 [facility] Comment on above: Performed By: #### L 100.0100, L500.2500 #### [facility] [address] [place], [address] Eosinophils/100 WBC (Bld) 1.0 % Normal 0-5 [facility] Comment on above: Performed By: #### L 100.0100, L500.2500 #### [facility] [address] [place], [address] Erythrocyte distribution width (RBC) [Ratio] 14.4 % Normal 11.6-14.6 [facility] Comment on above: Performed By: #### L 100.0100, L500.2500 #### [facility] [address] [place], [address] Hematocrit (Bld) [Volume fraction] 27.4 % Low 37-47 [facility] Comment on above: Performed By: #### L 100.0100, L500.2500 #### [facility] [address] [place], [address] Hemoglobin (Bld) [Mass/Vol] 8.9 g/dL Low 12.0-15.0 [facility] Comment on above: Performed By: #### L 100.0100, L500.2500 #### [facility] [address] [place], [address] IG% 0.300 Normal 0.0-0.9 [facility] Comment on above: Result Comment: IG% - Immature Granulocytes (promyelocytes, myelocytes and metamyelocytes) > 1% indicates that a LEFT SHIFT is Present. Performed By: #### L 100.0100, L500.2500 #### [facility] [address] [place], [address] Lymphocytes/100 WBC (Bld) 22.2 % Normal 19-41 [facility] Comment on above: Performed By: #### L 100.0100, L500.2500 #### [facility] [address] [place], [address] MCH (RBC) [Entitic mass] 29.2 pg Normal 27.0-32.0 [facility] Comment on above: Performed By: #### L 100.0100, L500.2500 #### [facility] [address] [place], [address] MCHC (RBC) [Mass/Vol] 32.5 g/dL Normal 32-36 [facility] Comment on above: Performed By: #### L 100.0100, L500.2500 #### [facility] [address] [place], [address] MCV (RBC) [Entitic vol] 89.8 fL Normal 81-99 [facility] Comment on above: Performed By: #### L 100.0100, L500.2500 #### [facility] [address] [place], [address] Monocytes/100 WBC (Bld) 7.4 % Normal 0-10 [facility] Comment on above: Performed By: #### L 100.0100, L500.2500 #### [facility] [address] [place], [address] Neutrophils/100 WBC (Bld) 68.4 % Normal 47-70 [facility] Comment on above: Performed By: #### L 100.0100, L500.2500 #### [facility] [address] [place], [address] Nucleated RBC (Bld) [#/Vol] 0 10*3/uL Normal 0-5 [facility] Comment on above: Performed By: #### L 100.0100, L500.2500 #### [facility] [address] [place], [address] Platelet mean volume (Bld) [Entitic vol] 11.6 fL Normal 6.2-12.0 [facility] Comment on above: Performed By: #### L 100.0100, L500.2500 #### [facility] [address] [place], [address] Platelets (Bld) [#/Vol] 290 10*3/uL Normal 150-450 [facility] Comment on above: Performed By: #### L 100.0100, L500.2500 #### [facility] [address] [place], [address] RBC (Bld) [#/Vol] 3.05 10*6/uL Low 4.2-5.4 [place] Comment on above: Performed By: #### L 100.0100, L500.2500 #### [facility] [address] [place], [address] RDW SD 46.7 fl High 35.1-43.9 [facility] Comment on above: Performed By: #### L 100.0100, L500.2500 #### [facility] [address] [place], [address] WBC (Bld) [#/Vol] 9.1 10*3/uL Normal 4.4-11.0 [facility] Comment on above: Performed By: #### L 100.0100, L500.2500 #### [facility] [address] [place], [address] Carbon dioxide, total [Moles /volume] in Central venous bloodOrdered By: Jack Mae on 06-20-2025 CO2 [Moles/Vol] 17.5 mmol/L Low 21.0-32.0 [facility] Chloride assayOrdered By: Lillian Mae on 06-20-2025 Chloride [Moles/Vol] 107 mmol/L 98-108 [facility] Discharge Instructionon 06-05 Discharge Instruction [facility] Medical Records Department [address] [place] [address] Instructions for Home/Discharge Instructions 06/20/25 1200 MR#: [id number] Acct: [id number] Name: CICI WOODWARD Rep #: [id number] : 1935 89 From: Jack Mae MD [...] MD; Dr. Anju Pearce MD Signed Normal [facility] Eosinophil percentageOrdered By: Jack Mae on 06-20-2025 Eosinophils/100 WBC (Bld) 1.0 % 0-5 [facility] Erythrocyte distribution wid th ratioOrdered By: Jack Mae on 06-20-2025 Erythrocyte distribution width (RBC) [Ratio] 14.4 % 11.6-14.6 [facility] Erythrocyte distribution wid th standard deviationOrdered By: Jack Mae on 06-20-2025 Erythrocyte distribution width (RBC) [Ratio] 46.7 fl High 35.1-43.9 [facility] Glomerular filtration rate ( GFR) estimation/1.73 sq m using serum, plasma, or whole bOrdered By: Jack Mae on 06-20-2025 GFR/1.73 sq M.predicted among non-blacks MDRD (S/P/Bld) [Vol rate/Area] 20 mL/min/{1.73_m2} Low >60 [facility] Comment on above: mL/min/1.73m2 CKD-EP I Creatinine Equation (2020) Glucose measurement at bedsi deOrdered By: Jack Mae on 06-20-2025 Glucose [Mass/Vol] 196 mg/dL High 74-106 [facility] Comment on above: MANAGEMENT OF PATIEN T CARE PER NURSING PROTOCOL Hematocrit Auto (Bld) [Volum e fraction]Ordered By: Jack Mae on 06-20-2025 Hematocrit (Bld) [Volume fraction] 27.4 % Low 37-47 [facility] Hemoglobin measurementOrdere d By: Jack Mae on 06-20-2025 Hemoglobin (Bld) [Mass/Vol] 8.9 g/dL Low 12.0-15.0 [facility] Immature granulocytes/100 WB C Auto (Bld)Ordered By: Jack Mae on 06-20-2025 Immature granulocytes/100 WBC (Bld) 0.300 % 0.0-0.9 [facility] Comment on above: IG% - Immature Granu locytes (promyelocytes, myelocytes and metamyelocytes) > 1% indicates that a LEFT SHIFT is Present. MCV (mean corpuscular volume ) determinationOrdered By: Jack Mae on 06-20-2025 MCV (RBC) [Entitic vol] 89.8 fL 81-99 [facility] Mean corpuscular hemoglobin (MCH) determinationOrdered By: Jack Mae on 06-20-2025 MCH (RBC) [Entitic mass] 29.2 pg 27.0-32.0 [facility] Mean corpuscular hemoglobin concentration (MCHC) determinationOrdered By: Jack Mae on 06-20-2025 MCHC (RBC) [Mass/Vol] 32.5 g/dL 32-36 [facility] Mean platelet volume determi nationOrdered By: Jack Mae on 06-20-2025 Platelet mean volume (Bld) [Entitic vol] 11.6 fL 6.2-12.0 [facility] Monocyte percentageOrdered B y: Jack Mae on 06-20-2025 Monocytes/100 WBC (Bld) 7.4 % 0-10 [facility] Neutrophil percentageOrdered By: Jack Mae on 06-20-2025 Neutrophils/100 WBC (Bld) 68.4 % 47-70 [facility] Nucleated red blood cell per centageOrdered By: Jack Mae on 06-20-2025 Nucleated RBC/100 WBC (Bld) [Ratio] 0 % 0-5 [facility] Platelet countOrdered By: Lillian Mae on 06-20-2025 Platelets (Bld) [#/Vol] 290 10*3/uL 150-450 [facility] Potassium measurement (mass/ volume)Ordered By: Jack Mae on 06-20-2025 Potassium (Unsp spec) [Mass/Vol] 4.7 mmol/L 3.3-5.1 [facility] RBC Auto (Bld) [#/Vol]Ordere d By: Jack Mae on 06-20-2025 RBC (Bld) [#/Vol] 3.05 10*6/uL Low 4.2-5.4 [place] Serum creatinine measurement (mass/volume)Ordered By: Jack Mae on 06-20-2025 Creatinine [Mass/Vol] 2.26 mg/dL High 0.70-1.20 [facility] Serum glucose measurement (m ass/volume)Ordered By: Jack Mae on 06-20-2025 Glucose [Mass/Vol] 120 mg/dL High 70-99 [facility] Serum or plasma calcium anita urement (mass/volume)Ordered By: Jack Mae on 06-20-2025 Calcium [Mass/Vol] 9.4 mg/dL 7.6-11.0 [facility] Serum or plasma urea nitroge n measurement (mass/volume)Ordered By: Jack Mae on 06-20-2025 Urea nitrogen [Mass/Vol] 57 mg/dL High 4-19 [facility] Sodium levelOrdered By: Chris Mae on 06-20-2025 Sodium [Moles/Vol] 138 mmol/L 133-145 [facility] White blood cell (WBC) count Ordered By: Jack Mae on 06-20-2025 WBC (Bld) [#/Vol] 9.1 10*3/uL 4.4-11.0 [facility] Basic Metabolic Profile (BMP )on 06-19-2025 BUN/CRE 27.2 RATIO High 10-20 [facility] Comment on above: Performed By: #### L 501.080 #### [facility] [address] [place], [address] Calcium [Mass/Vol] 9.1 mg/dL Normal 7.6-11.0 [facility] Comment on above: Performed By: #### L 501.080 #### [facility] [address] [place], [address] Chloride [Moles/Vol] 107 mmol/L Normal 98-108 [facility] Comment on above: Performed By: #### L 501.080 #### [facility] [address] [place], [address] CO2 [Moles/Vol] 16.8 mmol/L Low 21.0-32.0 [facility] Comment on above: Performed By: #### L 501.080 #### [facility] [address] [place], [address] Creatinine [Mass/Vol] 2.24 mg/dL High 0.70-1.20 [facility] Comment on above: Performed By: #### L 501.080 #### [facility] [address] [place], [address] ECRCL 16.26 ml/min Low 50-250 [facility] Comment on above: Performed By: #### L 501.080 #### [facility] [address] [place], [address] GAP 13 Normal 5-15 [facility] Comment on above: Performed By: #### L 501.080 #### [facility] [address] [place], [address] GFR/1.73 sq M.predicted among non-blacks MDRD (S/P/Bld) [Vol rate/Area] 21 mL/min/{1.73_m2} Low >60 [facility] Comment on above: Result Comment: mL/m in/1.73m2 CKD-EPI Creatinine Equation (2020) Performed By: #### L 501.080 #### [facility] [address] [place], [address] Glucose [Mass/Vol] 140 mg/dL High 70-99 [facility] [facility] Comment on above: Performed By: #### L 501.080 #### [facility] [address] [place], [address] Potassium [Moles/Vol] 4.7 mmol/L Normal 3.3-5.1 [facility] Comment on above: Performed By: #### L 501.080 #### [facility] [address] [place], [address] Sodium [Moles/Vol] 136 mmol/L Normal 133-145 [facility] Comment on above: Performed By: #### L 501.080 #### [facility] [address] [place], [address] Urea nitrogen [Mass/Vol] 61 mg/dL High 4-19 [facility] Comment on above: Performed By: #### L 501.080 #### [facility] [address] [place], [address] Bedside Glucoseon 06-19-2025 FINGERSTICK GLU 182 mg/dL High 74-106 [facility] Comment on above: Result Comment: SHONNA GEMENT OF PATIENT CARE PER NURSING PROTOCOL Performed By: #### L 501.080 #### [facility] [address] [place], [address] FINGERSTICK GLU 151 mg/dL High 74-106 [facility] Comment on above: Result Comment: SHONNA GEMENT OF PATIENT CARE PER NURSING PROTOCOL Performed By: #### L 501.080 #### [facility] [address] [place], [address] FINGERSTICK GLU 118 mg/dL High 74-106 [facility] Comment on above: Result Comment: SHONNA GEMENT OF PATIENT CARE PER NURSING PROTOCOL Performed By: #### L 501.080 #### [facility] [address] [place], [address] FINGERSTICK GLU 135 mg/dL High 74-106 [facility] Comment on above: Result Comment: SHONNA GEMENT OF PATIENT CARE PER NURSING PROTOCOL Performed By: #### L 501.080 #### [facility] [address] [place], [address] FINGERSTICK GLU 155 mg/dL High 74-106 [facility] Comment on above: Result Comment: SHONNA GEMENT OF PATIENT CARE PER NURSING PROTOCOL Performed By: #### L 501.080 #### [facility] [address] [place], [address] CBC W/Diff, Automatedon 08-11 09-2024 Absolute Lymph 1.64 X10 3/uL Normal 0.83-4.51 [facility] Comment on above: Performed By: #### L 501.080 #### [facility] [address] [place], [address] Absolute Neut 6.0 X10 3/uL Normal 2.0-7.7 [facility] Comment on above: Performed By: #### L 501.080 #### [facility] [address] [place], [address] Basophils/100 WBC (Bld) 0.5 % Normal 0-1 [facility] Comment on above: Performed By: #### L 501.080 #### [facility] [address] [place], [address] Eosinophils/100 WBC (Bld) 1.3 % Normal 0-5 [facility] Comment on above: Performed By: #### L 501.080 #### [facility] [address] [place], [address] Erythrocyte distribution width (RBC) [Ratio] 14.1 % Normal 11.6-14.6 [facility] Comment on above: Performed By: #### L 501.080 #### [facility] [address] [place], [address] Hematocrit (Bld) [Volume fraction] 25.6 % Low 37-47 [facility] Comment on above: Performed By: #### L 501.080 #### [facility] [address] [place], [address] Hemoglobin (Bld) [Mass/Vol] 8.3 g/dL Low 12.0-15.0 [facility] Comment on above: Performed By: #### L 501.080 #### [facility] [address] [place], [address] IG% 0.600 Normal 0.0-0.9 [facility] Comment on above: Result Comment: IG% - Immature Granulocytes (promyelocytes, myelocytes and metamyelocytes) > 1% indicates that a LEFT SHIFT is Present. Performed By: #### L 501.080 #### [facility] [address] [place], [address] Lymphocytes/100 WBC (Bld) 19.1 % Normal 19-41 [facility] Comment on above: Performed By: #### L 501.080 #### [facility] [address] [place], [address] MCH (RBC) [Entitic mass] 29.0 pg Normal 27.0-32.0 [facility] Comment on above: Performed By: #### L 501.080 #### [facility] [address] [place], [address] MCHC (RBC) [Mass/Vol] 32.4 g/dL Normal 32-36 [facility] Comment on above: Performed By: #### L 501.080 #### [facility] [address] [place], [address] MCV (RBC) [Entitic vol] 89.5 fL Normal 81-99 [facility] Comment on above: Performed By: #### L 501.080 #### [facility] [address] [place], [address] Monocytes/100 WBC (Bld) 8.8 % Normal 0-10 [facility] Comment on above: Performed By: #### L 501.080 #### [facility] [address] [place], [address] Neutrophils/100 WBC (Bld) 69.7 % Normal 47-70 [facility] Comment on above: Performed By: #### L 501.080 #### [facility] [address] [place], [address] Nucleated RBC (Bld) [#/Vol] 0 10*3/uL Normal 0-5 [facility] Comment on above: Performed By: #### L 501.080 #### [facility] [address] [place], [address] Platelet mean volume (Bld) [Entitic vol] 11.5 fL Normal 6.2-12.0 [facility] Comment on above: Performed By: #### L 501.080 #### [facility] [address] [place], [address] Platelets (Bld) [#/Vol] 264 10*3/uL Normal 150-450 [facility] Comment on above: Performed By: #### L 501.080 #### [facility] [address] [place], [address] RBC (Bld) [#/Vol] 2.86 10*6/uL Low 4.2-5.4 [place] Comment on above: Performed By: #### L 501.080 #### [facility] [address] [place], [address] RDW SD 45.6 fl High 35.1-43.9 [facility] Comment on above: Performed By: #### L 501.080 #### [facility] [address] [place], [address] WBC (Bld) [#/Vol] 8.6 10*3/uL Normal 4.4-11.0 [facility] Comment on above: Performed By: #### L 501.080 #### [facility] [address] [place], [address] HH, Hemoglobin AND Hematocri ton 06-19-2025 Hematocrit (Bld) [Volume fraction] 28.3 % Low 37-47 [facility] Comment on above: Performed By: #### L 501.080 #### [facility] [address] [place], [address] Hemoglobin (Bld) [Mass/Vol] 9.2 g/dL Low 12.0-15.0 [facility] Comment on above: Performed By: #### L 501.080 #### [facility] [address] [place], [address] Basic Metabolic Profile (BMP )on 06-18-2025 BUN/CRE 25.0 RATIO High 10-20 [facility] Comment on above: Performed By: #### L 501.080 #### [facility] [address] [place], [address] Calcium [Mass/Vol] 8.9 mg/dL Normal 7.6-11.0 [facility] Comment on above: Performed By: #### L 501.080 #### [facility] [address] [place], [address] Chloride [Moles/Vol] 106 mmol/L Normal 98-108 [facility] Comment on above: Performed By: #### L 501.080 #### [facility] [address] [place], [address] CO2 [Moles/Vol] 15.6 mmol/L Low 21.0-32.0 [facility] Comment on above: Performed By: #### L 501.080 #### [facility] [address] [place], [address] Creatinine [Mass/Vol] 2.42 mg/dL High 0.70-1.20 [facility] Comment on above: Performed By: #### L 501.080 #### [facility] [address] [place], [address] ECRCL 15.05 ml/min Low 50-250 [facility] Comment on above: Performed By: #### L 501.080 #### [facility] [address] [place], [address] GAP 13 Normal 5-15 [facility] Comment on above: Performed By: #### L 501.080 #### [facility] [address] [place], [address] GFR/1.73 sq M.predicted among non-blacks MDRD (S/P/Bld) [Vol rate/Area] 19 mL/min/{1.73_m2} Low >60 [facility] Comment on above: Result Comment: mL/m in/1.73m2 CKD-EPI Creatinine Equation (2020) Performed By: #### L 501.080 #### [facility] [address] [place], [address] Glucose [Mass/Vol] 208 mg/dL High 70-99 [facility] Comment on above: Performed By: #### L 501.080 #### [facility] [address] [place], [address] Potassium [Moles/Vol] 5.0 mmol/L Normal 3.3-5.1 [facility] Comment on above: Performed By: #### L 501.080 #### [facility] [address] [place], [address] Sodium [Moles/Vol] 135 mmol/L Normal 133-145 [facility] Comment on above: Performed By: #### L 501.080 #### [facility] [address] [place], [address] Urea nitrogen [Mass/Vol] 61 mg/dL High 4-19 [facility] Comment on above: Performed By: #### L 501.080 #### [facility] [address] [place], [address] Bedside Glucoseon 06-18-2025 FINGERSTICK GLU 182 mg/dL High 74-106 [facility] Comment on above: Result Comment: SHONNA GEMENT OF PATIENT CARE PER NURSING PROTOCOL Performed By: #### L 501.080 #### [facility] [address] [place], [address] FINGERSTICK GLU 238 mg/dL High 74-106 [facility] Comment on above: Result Comment: SHONNA GEMENT OF PATIENT CARE PER NURSING PROTOCOL Performed By: #### L 501.080 #### [facility] [address] [place], [address] FINGERSTICK GLU 205 mg/dL High 74-106 [facility] Comment on above: Result Comment: SHONNA GEMENT OF PATIENT CARE PER NURSING PROTOCOL Performed By: #### L 501.080 #### [facility] [address] [place], [address] FINGERSTICK GLU 174 mg/dL High 74-106 [facility] Comment on above: Result Comment: SHONNA GEMENT OF PATIENT CARE PER NURSING PROTOCOL Performed By: #### L 501.080 #### [facility] [address] [place], [address] CBC W/Diff, Automatedon 06-05 Absolute Lymph 1.68 X10 3/uL Normal 0.83-4.51 [facility] Comment on above: Performed By: #### L 501.080 #### [facility] [address] [place], [address] Absolute Neut 6.1 X10 3/uL Normal 2.0-7.7 [facility] Comment on above: Performed By: #### L 501.080 #### [facility] [address] [place], [address] Basophils/100 WBC (Bld) 0.5 % Normal 0-1 [facility] Comment on above: Performed By: #### L 501.080 #### [facility] [address] [place], [address] Eosinophils/100 WBC (Bld) 0.7 % Normal 0-5 [facility] Comment on above: Performed By: #### L 501.080 #### [facility] [address] [place], [address] Erythrocyte distribution width (RBC) [Ratio] 14.2 % Normal 11.6-14.6 [facility] Comment on above: Performed By: #### L 501.080 #### [facility] [address] [place], [address] Hematocrit (Bld) [Volume fraction] 25.9 % Low 37-47 [facility] Comment on above: Performed By: #### L 501.080 #### [facility] [address] [place], [address] Hemoglobin (Bld) [Mass/Vol] 8.4 g/dL Low 12.0-15.0 [facility] Comment on above: Performed By: #### L 501.080 #### [facility] [address] [place], [address] IG% 0.300 Normal 0.0-0.9 [facility] Comment on above: Result Comment: IG% - Immature Granulocytes (promyelocytes, myelocytes and metamyelocytes) > 1% indicates that a LEFT SHIFT is Present. Performed By: #### L 501.080 #### [facility] [address] [place], [address] Lymphocytes/100 WBC (Bld) 19.4 % Normal 19-41 [facility] Comment on above: Performed By: #### L 501.080 #### [facility] [address] [place], [address] MCH (RBC) [Entitic mass] 29.8 pg Normal 27.0-32.0 [facility] Comment on above: Performed By: #### L 501.080 #### [facility] [address] [place], [address] MCHC (RBC) [Mass/Vol] 32.4 g/dL Normal 32-36 [facility] Comment on above: Performed By: #### L 501.080 #### [facility] [address] [place], [address] MCV (RBC) [Entitic vol] 91.8 fL Normal 81-99 [facility] Comment on above: Performed By: #### L 501.080 #### [facility] [address] [place], [address] Monocytes/100 WBC (Bld) 8.3 % Normal 0-10 [facility] Comment on above: Performed By: #### L 501.080 #### [facility] [address] [place], [address] Neutrophils/100 WBC (Bld) 70.8 % High 47-70 [facility] Comment on above: Performed By: #### L 501.080 #### [facility] [address] [place], [address] Nucleated RBC (Bld) [#/Vol] 0 10*3/uL Normal 0-5 [facility] Comment on above: Performed By: #### L 501.080 #### [facility] [address] [place], [address] Platelet mean volume (Bld) [Entitic vol] 11.4 fL Normal 6.2-12.0 [facility] Comment on above: Performed By: #### L 501.080 #### [facility] [address] [place], [address] Platelets (Bld) [#/Vol] 226 10*3/uL Normal 150-450 [facility] Comment on above: Performed By: #### L 501.080 #### [facility] [address] [place], [address] RBC (Bld) [#/Vol] 2.82 10*6/uL Low 4.2-5.4 [place] Comment on above: Performed By: #### L 501.080 #### [facility] [address] [place], [address] RDW SD 47.9 fl High 35.1-43.9 [facility] Comment on above: Performed By: #### L 501.080 #### [facility] [address] [place], [address] WBC (Bld) [#/Vol] 8.7 10*3/uL Normal 4.4-11.0 [facility] Comment on above: Performed By: #### L 501.080 #### [facility] [address] [place], [address] Consultation - Nephrologyon 06-18-2025 Consultation - Nephrology [facility] Medical Records Department [address] [place] [address] Consultation - Nephrology 06/18/25 1420 MR#: [id number] Acct: [id number] Name: CICI WOODWARD Rep #: [id number] : 1935 89 From: Franci Merino NP-C PCP: Dr. Anju Pearce MD Status:DIS IN Location: [facility] [id number] Assessment Plan Assessment/Plan (1) SHA (acute kidney [...] hospitalization we will arrange follow-up in our [place] office. 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 Reviewing past lab work patient has had elevated creatinine dating back to at least 2017. Patient denies any recent NSAIDs. No vomiting. No diarrhea. States appetite is still poor. [facility] Medical History (Updated 06/18/25 @ 14:26 by PATI Denis) Kidney disease Stroke/cerebrovascular accident Atherosclerosis of coronary artery of [place] heart without angina pectoris Bilateral renal cysts [...] History ( (more content not included)... Normal [facility] Hemoglobinon 06-18-2025 Hemoglobin (Bld) [Mass/Vol] 9.1 g/dL Low 12.0-15.0 [facility] Comment on above: Performed By: #### L 501.080 #### [facility] [address] [place], [address] Protein+Creatinine Ratio,Uri neon 06-18-2025 PROT:CRE RATIO 1783 mg/g CRE High 0-200 [facility] Comment on above: Performed By: #### L 501.080 #### [facility] [address] [place], [address] Protein (U) [Mass/Vol] 55.1 mg/dL High 0.0-12.0 [facility] Comment on above: Performed By: #### L 501.080 #### [facility] [address] [place], [address] UR CREAT 30.90 mg/dL Normal 28.00-217.00 [facility] Comment on above: Performed By: #### L 501.080 #### [facility] [address] [place], [address] Random urine creatinine anita urement (mass/volume)Ordered By: Ta Phillips on 06-18-2025 Creatinine Unsp time (U) [Mass/Vol] 30.90 mg/dL 28.00-217.00 [facility] Stool Occult Blood iFOBon STOB Positive Normal [facility] Comment on above: Performed By: #### L 501.080 #### [facility] [address] [place], [address] Stool gastrointestinal hemog lobin detection by immunologic methodOrdered By: Jack Mae on 06-18-2025 Lower GI hemoglobin IA Ql (Stl) Positive Abnormal [facility] Urine Electrolytes- Randomon 06-18-2025 Chloride,URINE 90 mmol/L Normal Not Establ. [facility] Comment on above: Performed By: #### L 501.080 #### [facility] [address] [place], [address] Sodium (U) [Moles/Vol] 88 mmol/L Normal Not Establ. [facility] Comment on above: Performed By: #### L 501.080 #### [facility] [address] [place], [address] UR K 19.1 mmol/L Normal Not Establ. [facility] Comment on above: Performed By: #### L 501.080 #### [facility] [address] [place], [address] Urine potassium measurement (moles/volume)Ordered By: Jack Mea on 06-18-2025 Potassium (U) [Moles/Vol] 19.1 mmol/L Not Establ. [facility] Urine protein measurement (m ass/volume)Ordered By: Ta Phillips on 06-18-2025 Protein (U) [Mass/Vol] 55.1 mg/dL High 0.0-12.0 [facility] Urine protein/creatinine mas s ratioOrdered By: Ta Phillips on 06-18-2025 Protein/Creatinine (U) [Mass ratio] 1783 mg/g CRE High 0-200 [facility] Urine sodium measurement (mo les/volume)Ordered By: Jack Mae on 06-18-2025 Sodium (U) [Moles/Vol] 88 mmol/L Not Establ. [facility] Basic Metabolic Profile (BMP )on 06-17-2025 BUN/CRE 23.6 RATIO High 10-20 [facility] Comment on above: Performed By: #### L 501.080 #### [facility] [address] [place], [address] Calcium [Mass/Vol] 9.1 mg/dL Normal 7.6-11.0 [facility] Comment on above: Performed By: #### L 501.080 #### [facility] [address] [place], [address] Chloride [Moles/Vol] 107 mmol/L Normal 98-108 [facility] Comment on above: Performed By: #### L 501.080 #### [facility] [address] [place], [address] CO2 [Moles/Vol] 15.0 mmol/L Low 21.0-32.0 [facility] Comment on above: Performed By: #### L 501.080 #### [facility] [address] [place], [address] Creatinine [Mass/Vol] 2.37 mg/dL High 0.70-1.20 [facility] Comment on above: Performed By: #### L 501.080 #### [facility] [address] [place], [address] ECRCL 15.37 ml/min Low 50-250 [facility] Comment on above: Performed By: #### L 501.080 #### [facility] [address] [place], [address] GAP 13 Normal 5-15 [facility] Comment on above: Performed By: #### L 501.080 #### [facility] [address] [place], [address] GFR/1.73 sq M.predicted among non-blacks MDRD (S/P/Bld) [Vol rate/Area] 19 mL/min/{1.73_m2} Low >60 [facility] Comment on above: Result Comment: mL/m in/1.73m2 CKD-EPI Creatinine Equation (2020) Performed By: #### L 501.080 #### [facility] [address] [place], [address] Glucose [Mass/Vol] 159 mg/dL High 70-99 [facility] Comment on above: Performed By: #### L 501.080 #### [facility] [address] [place], [address] Potassium [Moles/Vol] 5.2 mmol/L High 3.3-5.1 [facility] Comment on above: Performed By: #### L 501.080 #### [facility] [address] [place], [address] Sodium [Moles/Vol] 134 mmol/L Normal 133-145 [facility] Comment on above: Performed By: #### L 501.080 #### [facility] [address] [place], [address] Urea nitrogen [Mass/Vol] 56 mg/dL High 4-19 [facility] Comment on above: Performed By: #### L 501.080 #### [facility] [address] [place], [address] Bedside Glucoseon 06-17-2025 FINGERSTICK GLU 196 mg/dL High 74-106 [facility] Comment on above: Result Comment: SHONNA GEMENT OF PATIENT CARE PER NURSING PROTOCOL Performed By: #### L 501.080 #### [facility] [address] [place], [address] FINGERSTICK GLU 215 mg/dL High 74-106 [facility] Comment on above: Result Comment: SHONNA GEMENT OF PATIENT CARE PER NURSING PROTOCOL Performed By: #### L 501.080 #### [facility] [address] [place], [address] FINGERSTICK GLU 241 mg/dL High 74-106 [facility] Comment on above: Result Comment: SHONNA GEMENT OF PATIENT CARE PER NURSING PROTOCOL Performed By: #### L 501.080 #### [facility] [address] [place], [address] FINGERSTICK GLU 164 mg/dL High 74-106 [facility] Comment on above: Result Comment: SHONNA SIMPSON OF PATIENT CARE PER NURSING PROTOCOL Performed By: #### L 501.080 #### [facility] [address] [place], [address] CBC W/Diff, Automatedon - Absolute Lymph 2.44 X10 3/uL Normal 0.83-4.51 [facility] Comment on above: Performed By: #### L 501.080 #### [facility] [address] [place], [address] Absolute Neut 6.4 X10 3/uL Normal 2.0-7.7 [facility] Comment on above: Performed By: #### L 501.080 #### [facility] [address] [place], [address] Basophils/100 WBC (Bld) 0.4 % Normal 0-1 [facility] Comment on above: Performed By: #### L 501.080 #### [facility] [facility] [address] [place], [address] Eosinophils/100 WBC (Bld) 0.3 % Normal 0-5 [facility] Comment on above: Performed By: #### L 501.080 #### [facility] [address] [place], [address] Erythrocyte distribution width (RBC) [Ratio] 14.5 % Normal 11.6-14.6 [facility] Comment on above: Performed By: #### L 501.080 #### [facility] [address] [place], [address] Hematocrit (Bld) [Volume fraction] 28.2 % Low 37-47 [facility] Comment on above: Performed By: #### L 501.080 #### [facility] [address] [place], [address] Hemoglobin (Bld) [Mass/Vol] 9.3 g/dL Low 12.0-15.0 [facility] Comment on above: Performed By: #### L 501.080 #### [facility] [address] [place], [address] IG% 0.400 Normal 0.0-0.9 [facility] Comment on above: Result Comment: IG% - Immature Granulocytes (promyelocytes, myelocytes and metamyelocytes) > 1% indicates that a LEFT SHIFT is Present. Performed By: #### L 501.080 #### [facility] [address] [place], [address] Lymphocytes/100 WBC (Bld) 25.2 % Normal 19-41 [facility] Comment on above: Performed By: #### L 501.080 #### [facility] [address] [place], [address] MCH (RBC) [Entitic mass] 30.4 pg Normal 27.0-32.0 [facility] Comment on above: Performed By: #### L 501.080 #### [facility] [address] [place], [address] MCHC (RBC) [Mass/Vol] 33.0 g/dL Normal 32-36 [facility] Comment on above: Performed By: #### L 501.080 #### [facility] [address] [place], [address] MCV (RBC) [Entitic vol] 92.2 fL Normal 81-99 [facility] Comment on above: Performed By: #### L 501.080 #### [facility] [address] [place], [address] Monocytes/100 WBC (Bld) 7.5 % Normal 0-10 [facility] Comment on above: Performed By: #### L 501.080 #### [facility] [address] [place], [address] Neutrophils/100 WBC (Bld) 66.2 % Normal 47-70 [facility] Comment on above: Performed By: #### L 501.080 #### [facility] [address] [place], [address] Nucleated RBC (Bld) [#/Vol] 0 10*3/uL Normal 0-5 [facility] Comment on above: Performed By: #### L 501.080 #### [facility] [address] [place], [address] Platelet mean volume (Bld) [Entitic vol] 11.2 fL Normal 6.2-12.0 [facility] Comment on above: Performed By: #### L 501.080 #### [facility] [address] [place], [address] Platelets (Bld) [#/Vol] 271 10*3/uL Normal 150-450 [facility] Comment on above: Performed By: #### L 501.080 #### [facility] [address] [place], [address] RBC (Bld) [#/Vol] 3.06 10*6/uL Low 4.2-5.4 [place] Comment on above: Performed By: #### L 501.080 #### [facility] [address] [place], [address] RDW SD 49.0 fl High 35.1-43.9 [facility] Comment on above: Performed By: #### L 501.080 #### [facility] [address] [place], [address] WBC (Bld) [#/Vol] 9.7 10*3/uL Normal 4.4-11.0 [facility] Comment on above: Performed By: #### L 501.080 #### [facility] [address] [place], [address] Limited echocardiogram repor tOrdered By: Catie Vera on 06-17-2025 Study report [facility] [address] [place] [address] Echo, Limited Study 06/17/25 0948 MR#: [id number] Acct: [id number] Name: CICI WOODWARD Rep #:[id number] : 1935 89 From: Catie Mcdonald Attending [...] ~ Date Dictated: 06/17/2548 Date Transcribed: 06/17/251057 Assistant Women'S Tennis Coach: Signed [facility] Basic Metabolic Profile (BMP )on 06-16-2025 BUN/CRE 21.0 RATIO High 10-20 [facility] Comment on above: Performed By: #### L 501.080 #### [facility] [address] [place], [address] Calcium [Mass/Vol] 8.9 mg/dL Normal 7.6-11.0 [facility] Comment on above: Performed By: #### L 501.080 #### [facility] [address] [place], [address] Chloride [Moles/Vol] 106 mmol/L Normal 98-108 [facility] Comment on above: Performed By: #### L 501.080 #### [facility] [address] [place], [address] CO2 [Moles/Vol] 15.7 mmol/L Low 21.0-32.0 [facility] Comment on above: Performed By: #### L 501.080 #### [facility] [address] [place], [address] Creatinine [Mass/Vol] 2.29 mg/dL High 0.70-1.20 [facility] Comment on above: Performed By: #### L 501.080 #### [facility] [address] [place], [address] ECRCL 15.91 ml/min Low 50-250 [facility] Comment on above: Performed By: #### L 501.080 #### [facility] [address] [place], [address] GAP 12 Normal 5-15 [facility] Comment on above: Performed By: #### L 501.080 #### [facility] [address] [place], [address] GFR/1.73 sq M.predicted among non-blacks MDRD (S/P/Bld) [Vol rate/Area] 20 mL/min/{1.73_m2} Low >60 [facility] Comment on above: Result Comment: mL/m in/1.73m2 CKD-EPI Creatinine Equation (2020) Performed By: #### L 501.080 #### [facility] [address] [place], [address] Glucose [Mass/Vol] 149 mg/dL High 70-99 [facility] Comment on above: Performed By: #### L 501.080 #### [facility] [address] [place], [address] Potassium [Moles/Vol] 5.1 mmol/L Normal 3.3-5.1 [facility] Comment on above: Performed By: #### L 501.080 #### [facility] [address] [place], [address] Sodium [Moles/Vol] 133 mmol/L Normal 133-145 [facility] Comment on above: Performed By: #### L 501.080 #### [facility] [address] [place], [address] Urea nitrogen [Mass/Vol] 48 mg/dL High 4-19 [facility] Comment on above: Performed By: #### L 501.080 #### [facility] [address] [place], [address] Bedside Glucoseon 06-16-2025 FINGERSTICK GLU 198 mg/dL High 74-106 [facility] Comment on above: Result Comment: SHONNA GEMENT OF PATIENT CARE PER NURSING PROTOCOL Performed By: #### L 501.080 #### [facility] [address] [place], [address] FINGERSTICK GLU 155 mg/dL High 74-106 [facility] Comment on above: Result Comment: SHONNA GEMENT OF PATIENT CARE PER NURSING PROTOCOL Performed By: #### L 501.080 #### [facility] [address] [place], [address] FINGERSTICK GLU 209 mg/dL High 74-106 [facility] Comment on above: Result Comment: SHONNA GEMENT OF PATIENT CARE PER NURSING PROTOCOL Performed By: #### L 501.080 #### [facility] [address] [place], [address] FINGERSTICK GLU 140 mg/dL High 74-106 [facility] Comment on above: Result Comment: SHONNA GEMENT OF PATIENT CARE PER NURSING PROTOCOL Performed By: #### L 501.080 #### [facility] [address] [place], [address] CBC W/Diff, Automatedon -11 06-2024 Absolute Lymph 2.04 X10 3/uL Normal 0.83-4.51 [facility] Comment on above: Performed By: #### L 501.080 #### [facility] [address] [place], [address] Absolute Neut 6.2 X10 3/uL Normal 2.0-7.7 [facility] Comment on above: Performed By: #### L 501.080 #### [facility] [address] [place], [address] Basophils/100 WBC (Bld) 0.3 % Normal 0-1 [facility] Comment on above: Performed By: #### L 501.080 #### [facility] [address] [place], [address] Eosinophils/100 WBC (Bld) 0.1 % Normal 0-5 [facility] Comment on above: Performed By: #### L 501.080 #### [facility] [address] [place], [address] Erythrocyte distribution width (RBC) [Ratio] 14.6 % Normal 11.6-14.6 [facility] Comment on above: Performed By: #### L 501.080 #### [facility] [address] [place], [address] Hematocrit (Bld) [Volume fraction] 28.7 % Low 37-47 [facility] Comment on above: Performed By: #### L 501.080 #### [facility] [address] [place], [address] Hemoglobin (Bld) [Mass/Vol] 9.3 g/dL Low 12.0-15.0 [facility] Comment on above: Performed By: #### L 501.080 #### [facility] [address] [place], [address] IG% 0.200 Normal 0.0-0.9 [facility] Comment on above: Result Comment: IG% - Immature Granulocytes (promyelocytes, myelocytes and metamyelocytes) > 1% indicates that a LEFT SHIFT is Present. Performed By: #### L 501.080 #### [facility] [address] [place], [address] Lymphocytes/100 WBC (Bld) 22.7 % Normal 19-41 [facility] Comment on above: Performed By: #### L 501.080 #### [facility] [address] [place], [address] MCH (RBC) [Entitic mass] 29.8 pg Normal 27.0-32.0 [facility] Comment on above: Performed By: #### L 501.080 #### [facility] [address] [place], [address] MCHC (RBC) [Mass/Vol] 32.4 g/dL Normal 32-36 [facility] Comment on above: Performed By: #### L 501.080 #### [facility] [address] [place], [address] MCV (RBC) [Entitic vol] 92.0 fL Normal 81-99 [facility] Comment on above: Performed By: #### L 501.080 #### [facility] [address] [place], [address] Monocytes/100 WBC (Bld) 8.0 % Normal 0-10 [facility] Comment on above: Performed By: #### L 501.080 #### [facility] [address] [place], [address] Neutrophils/100 WBC (Bld) 68.7 % Normal 47-70 [facility] Comment on above: Performed By: #### L 501.080 #### [facility] [address] [place], [address] Nucleated RBC (Bld) [#/Vol] 0 10*3/uL Normal 0-5 [facility] Comment on above: Performed By: #### L 501.080 #### [facility] [address] [place], [address] Platelet mean volume (Bld) [Entitic vol] 10.8 fL Normal 6.2-12.0 [facility] Comment on above: Performed By: #### L 501.080 #### [facility] [address] [place], [address] Platelets (Bld) [#/Vol] 268 10*3/uL Normal 150-450 [facility] Comment on above: Performed By: #### L 501.080 #### [facility] [address] [place], [address] RBC (Bld) [#/Vol] 3.12 10*6/uL Low 4.2-5.4 [place] Comment on above: Performed By: #### L 501.080 #### [facility] [address] [place], [address] RDW SD 48.9 fl High 35.1-43.9 [facility] Comment on above: Performed By: #### L 501.080 #### [facility] [address] [place], [address] WBC (Bld) [#/Vol] 9.0 10*3/uL Normal 4.4-11.0 [facility] Comment on above: Performed By: #### L 501.080 #### [facility] [address] [place], [address] Chest 1 View (Portable)on Chest 1 View (Portable) [facility] [address] [place] [address] Chest 1 View (Portable) MR#: [id number] Acct: [id number] Name: CICI WOODWARD Rep #: [id number] : 1935 F 89 From: Jeffy Alfredo MD PCP: Dr. Anju Pearce MD Status: ADM IN Study: Chest 1 View (Portable) Date of Exam: 06/16/25 Exam# [id number] Ordering Dr: Jack Mae MD PROCEDURE: CHEST 1 VIEW (PORTABLE) 06/16/2025 REASON FOR EXAM: SHORTNESS OF BREATH AND WHEEZING. TECHNIQUE: Frontal view of the chest. COMPARISON: 06/14/2025. FINDINGS: [id number]-left basilar consolidative opacities in a pattern favoring edema. Infection is possible. The heart is enlarged. Prior sternotomy. RAD/Chest 1 View (Portable) IMPRESSION: Probable worsening edema in the setting of cardiomegaly. Infection is possible. Correlate with fever status. Reading Location: [facility] CC: Dr. Anju Pearce MD; Dr. Jack Mae MD Assistant Women'S Tennis Coach: Signed Normal [facility] Echo, Limited Studyon 2024 Echo, Limited Study [facility] [address] [place] [address] Echo, Limited Study 06/17/25 0948 MR#: [id number] Acct: [id number] Name: CICI WOODWARD Rep #: [id number] : 1935 89 From: Catie Vera MD Attending Dr: Dr. Jack Mae MD Status : ADM IN Ordering Dr: Jack Mae MD Date: 06/16/25 Location: [facility] Sex: F C Admitted: 06/14/25 Reason For [...] MD Date Dictated: 06/17/25947 Date Transcribed: 06/17/251057 Assistant Women'S Tennis Coach: Signed Normal [facility] Basic Metabolic Profile (BMP )on 06-15-2025 BUN/CRE 21.6 RATIO High 10-20 [facility] Comment on above: Performed By: #### L 501.080 #### [facility] [address] [place], [address] Calcium [Mass/Vol] 8.5 mg/dL Normal 7.6-11.0 [facility] Comment on above: Performed By: #### L 501.080 #### [facility] [address] [place], [address] Chloride [Moles/Vol] 109 mmol/L High 98-108 [facility] Comment on above: Performed By: #### L 501.080 #### [facility] [address] [place], [address] CO2 [Moles/Vol] 16.4 mmol/L Low 21.0-32.0 [facility] Comment on above: Performed By: #### L 501.080 #### [facility] [address] [place], [address] Creatinine [Mass/Vol] 2.16 mg/dL High 0.70-1.20 [facility] Comment on above: Performed By: #### L 501.080 #### [facility] [address] [place], [address] ECRCL 16.86 ml/min Low 50-250 [facility] Comment on above: Performed By: #### L 501.080 #### [facility] [address] [place], [address] GAP 12 Normal 5-15 [facility] Comment on above: Performed By: #### L 501.080 #### [facility] [address] [place], [address] GFR/1.73 sq M.predicted among non-blacks MDRD (S/P/Bld) [Vol rate/Area] 22 mL/min/{1.73_m2} Low >60 [facility] Comment on above: Result Comment: mL/m in/1.73m2 CKD-EPI Creatinine Equation (2020) Performed By: #### L 501.080 #### [facility] [address] [place], [address] Glucose [Mass/Vol] 182 mg/dL High 70-99 [facility] Comment on above: Performed By: #### L 501.080 #### [facility] [address] [place], [address] Potassium [Moles/Vol] 5.2 mmol/L High 3.3-5.1 [facility] Comment on above: Performed By: #### L 501.080 #### [facility] [address] [place], [address] Sodium [Moles/Vol] 137 mmol/L Normal 133-145 [facility] Comment on above: Performed By: #### L 501.080 #### [facility] [address] [place], [address] Urea nitrogen [Mass/Vol] 47 mg/dL High 4-19 [facility] Comment on above: Performed By: #### L 501.080 #### [facility] [address] [place], [address] Bedside Glucoseon 06-15-2025 FINGERSTICK GLU 295 mg/dL High 74-106 [facility] Comment on above: Result Comment: SHONNA GEMENT OF PATIENT CARE PER NURSING PROTOCOL Performed By: #### L 501.080 #### [facility] [address] [place], [address] FINGERSTICK GLU 176 mg/dL High 74-106 [facility] Comment on above: Result Comment: SHONNA GEMENT OF PATIENT CARE PER NURSING PROTOCOL Performed By: #### L 501.080 #### [facility] [address] [place], [address] FINGERSTICK GLU 176 mg/dL High 74-106 [facility] Comment on above: Result Comment: SHONNA GEMENT OF PATIENT CARE PER NURSING PROTOCOL Performed By: #### L 501.080 #### [facility] [address] [place], [address] FINGERSTICK GLU 183 mg/dL High 74-106 [facility] Comment on above: Result Comment: SHONNA GEMENT OF PATIENT CARE PER NURSING PROTOCOL Performed By: #### L 501.080 #### [facility] [address] [place], [address] CBC W/Diff, Automatedon 08-11 05-2024 Absolute Lymph 1.95 X10 3/uL Normal 0.83-4.51 [facility] Comment on above: Performed By: #### L 501.080 #### [facility] [address] [place], [address] Absolute Neut 7.5 X10 3/uL Normal 2.0-7.7 [facility] Comment on above: Performed By: #### L 501.080 #### [facility] [address] [place], [address] Basophils/100 WBC (Bld) 0.5 % Normal 0-1 [facility] Comment on above: Performed By: #### L 501.080 #### [facility] [address] [place], [address] Eosinophils/100 WBC (Bld) 0.0 % Normal 0-5 [facility] Comment on above: Performed By: #### L 501.080 #### [facility] [address] [place], [address] Erythrocyte distribution width (RBC) [Ratio] 14.3 % Normal 11.6-14.6 [facility] Comment on above: Performed By: #### L 501.080 #### [facility] [address] [place], [address] Hematocrit (Bld) [Volume fraction] 28.1 % Low 37-47 [facility] Comment on above: Performed By: #### L 501.080 #### [facility] [address] [place], [address] Hemoglobin (Bld) [Mass/Vol] 9.0 g/dL Low 12.0-15.0 [facility] Comment on above: Performed By: #### L 501.080 #### [facility] [address] [place], [address] IG% 0.400 Normal 0.0-0.9 [facility] Comment on above: Result Comment: IG% - Immature Granulocytes (promyelocytes, myelocytes and metamyelocytes) > 1% indicates that a LEFT SHIFT is Present. Performed By: #### L 501.080 #### [facility] [address] [place], [address] Lymphocytes/100 WBC (Bld) 19.5 % Normal 19-41 [facility] Comment on above: Performed By: #### L 501.080 #### [facility] [address] [place], [address] MCH (RBC) [Entitic mass] 29.6 pg Normal 27.0-32.0 [facility] Comment on above: Performed By: #### L 501.080 #### [facility] [address] [place], [address] MCHC (RBC) [Mass/Vol] 32.0 g/dL Normal 32-36 [facility] Comment on above: Performed By: #### L 501.080 #### [facility] [address] [place], [address] MCV (RBC) [Entitic vol] 92.4 fL Normal 81-99 [facility] Comment on above: Performed By: #### L 501.080 #### [facility] [address] [place], [address] Monocytes/100 WBC (Bld) 4.8 % Normal 0-10 [facility] Comment on above: Performed By: #### L 501.080 #### [facility] [address] [place], [address] Neutrophils/100 WBC (Bld) 74.8 % High 47-70 [facility] Comment on above: Performed By: #### L 501.080 #### [facility] [address] [place], [address] Nucleated RBC (Bld) [#/Vol] 0 10*3/uL Normal 0-5 [facility] Comment on above: Performed By: #### L 501.080 #### [facility] [address] [place], [address] Platelet mean volume (Bld) [Entitic vol] 11.0 fL Normal 6.2-12.0 [facility] Comment on above: Performed By: #### L 501.080 #### [facility] [address] [place], [address] Platelets (Bld) [#/Vol] 297 10*3/uL Normal 150-450 [facility] Comment on above: Performed By: #### L 501.080 #### [facility] [address] [place], [address] RBC (Bld) [#/Vol] 3.04 10*6/uL Low 4.2-5.4 [place] Comment on above: Performed By: #### L 501.080 #### [facility] [address] [place], [address] RDW SD 48.2 fl High 35.1-43.9 [facility] Comment on above: Performed By: #### L 501.080 #### [facility] [address] [place], [address] WBC (Bld) [#/Vol] 10.0 10*3/uL Normal 4.4-11.0 [place] Comment on above: Performed By: #### L 501.080 #### [facility] [address] [place], [address] Electrocardiogram reportOrde red By: Harris Kessler on 06-15-2025 EKG study [facility] [address] [place] [address] 12 Lead EKG 06/14/25 0858 MR#: [id number] Acct: [id number] Name: CICI WOODWARD Rep #:[id number] : 1935 89 From: Harris Kessler MD Attending Dr: Dr. Jack Mae MD Status: ADM IN Ordering Dr: Homero Mendosa MD Date: 08/29 Location: [facility] Sex: F C Admitted: 06/14/25 Test Reason [...] Abnormal ECG Confirmed by HARRIS KESSLER MD ([id number]), material expeditor KRISHAN LEE ([id number]) on 06/15/2025 1:14:12 PM Referred By: DEONDRE Confirmed By: HARRIS KESSLER MD 06/15/25 1314 Date _ Harris Kessler MD CC: Dr. Homero Mendosa MD; Dr. Anju Pearce MD; Dr. Jack Mae MD ~ Signed [facility] Other Phone: Ferritinon 06-15-2025 Ferritin [Mass/Vol] 153 ng/mL Normal 22-378 [place] Comment on above: Performed By: #### L 501.080 #### [facility] [address] [place], [place], [address] Hemoglobin A1con 06-15-2025 HbA1c (Bld) [Mass fraction] 7.2 % High <=5.6 [facility] Comment on above: Result Comment: Norm al < 5.7 % Prediabetic 5.7 - 6.4 % Diabetic >or= 6.5 % Please note range changes. Performed By: #### L 501.080 #### [facility] [address] [facility]. [place], [place], [id number] Hemoglobin A1c percentageOrd ered By: Ventura Ivy on 06-15-2025 HbA1c (Bld) [Mass fraction] 7.2 % High <5.7 [facility] Comment on above: Normal < 5.7 % Predi abetic 5.7 - 6.4 % Diabetic >or= 6.5 % Please note range changes. Iron measurement (mass/mass) Ordered By: Jack Mae on 06-15-2025 Iron (Unsp spec) [Mass/Mass] 21 ug/dL Low 50-170 [facility] Iron+Iron Binding Capacityon 06-15-2025 Iron [Mass/Vol] 21 ug/dL Low 50-170 [facility] Comment on above: Performed By: #### L 501.080 #### [facility] [address] [facility]. [place], [place], [address] IRON SATURATION 7.0 Low 13-59 [facility] Comment on above: Performed By: #### L 501.080 #### [facility] [address] [place], [address] TIBC 290 ug/dL Normal 250-450 [facility] Comment on above: Performed By: #### L 501.080 #### [facility] [address] [place], [address] UIBC 269 ug/dL Normal 228-428 [facility] Comment on above: Performed By: #### L 501.080 #### [facility] [address] [place], [address] Kidney and Bladderon 025 Kidney and Bladder [facility] Imaging Services [address] [place] [address] Kidney and Bladder MR#: [id number] Acct: [id number] Name: CICI WOODWARD Rep #: [id number] : 1935 F 89 From: Cornelius martinez MD PCP: Dr. Anju Pearce MD Status: ADM IN Study: Kidney and Bladder Date of Exam: 06/15/25 Exam# [id number] Ordering Dr: Ventura Ivy MD PROCEDURE: KIDNEY AND BLADDER 06/15/2025 REASON FOR EXAM: SHA TECHNIQUE: KIDNEY AND BLADDER COMPARISON: None FINDINGS: Kidneys: Normal renal sizes, parenchymal thicknesses, and echotextures. Black: No hydronephrosis. Cysts or Masses: No cysts [...] Bladder IMPRESSION: NORMAL RENAL ULTRASOUND. Reading Location: [place] [address] CC: Dr. Ventura Ivy MD; Dr. Anju Pearce MD Assistant Women'S Tennis Coach: Signed Normal [facility] Magnesiumon 06-15-2025 Magnesium [Mass/Vol] 2.2 mg/dL Normal 1.5-2.2 [facility] Comment on above: Performed By: #### L 100.0100, L500.2500 #### [facility] [address] [facility] [address] Magnesium measurement (mass/ volume)Ordered By: Ventura Ivy on 06-15-2025 Magnesium (Unsp spec) [Mass/Vol] 2.2 mg/dL 1.5-2.2 [facility] No Panel InformationOrdered By: Jack Mae on 06-15-2025 Unsaturated Iron Binding Capacity 269 ug/dL 228-428 [facility] Phosphoruson 06-15-2025 Phosphate [Mass/Vol] 3.7 mg/dL Normal 2.7-4.5 [facility] Comment on above: Performed By: #### L 501.080 #### [facility] [address] [place], [address] Serum or plasma ferritin vernell surement (mass/volume)Ordered By: Jack Mae on 06-15-2025 Ferritin [Mass/Vol] 153 ng/mL 22-378 [place] Serum or plasma iron saturat ion measurement (mass fraction)Ordered By: Jack Mae on 06-15-2025 Iron saturation [Mass fraction] 7.0 % Low 13-59 [facility] 12 Lead EKGon 06-14-2025 12 Lead EKG [facility] Cardiovascular Services [address] [place] [address] 12 Lead EKG 06/14/25 0858 MR#: [id number] Acct: [id number] Name: CICI WOODWARD Rep #: [id number] : 1935 89 From: Harris Kessler MD [...] Abnormal ECG Confirmed by HARRIS KESSLER MD ([id number]), material expeditor KRISHAN LEE ([id number]) on 06/15/2025 1:14:12 PM Referred By: DEONDRE Confirmed By: HARRIS KESSLER MD 06/15/25 1314 Date Harris Kessler MD CC: Dr. Homero Mendosa MD; Dr. Anju Pearce MD; Dr. Jack Mae MD Signed Normal [facility] Absolute lymphocyte countOrd ered By: Homero Mendosa on 06-14-2025 Lymphocytes Auto (Unsp spec) [#/Vol] 2.09 10*3/uL 0.83-4.51 [facility] Absolute neutrophil countOrd ered By: Homero Mendosa on 06-14-2025 Neutrophils (Bld) [#/Vol] 9.5 10*3/uL High 2.0-7.7 [facility] Anion gap in Serum or Plasma Ordered By: Homero Mendosa on 06-14-2025 Anion gap [Moles/Vol] 15 mmol/L 5-15 [facility] Automated lymphocyte count a s percentage of total leukocytesOrdered By: Homero Mendosa on 06-14-2025 Lymphocytes/100 WBC Auto (Unsp spec) 16.9 % Low 19-41 [facility] BUN/creatinine ratioOrdered By: Homero Mendosa on 06-14-2025 Urea nitrogen/Creatinine [Mass ratio] 21.4 mg/mg High 10-20 [facility] Basophil percentageOrdered B y: Homero Mendosa on 06-14-2025 Basophils/100 WBC (Bld) 0.5 % 0-1 [facility] Bedside Glucoseon 06-14-2025 FINGERSTICK GLU 162 mg/dL High [facility]106 [facility] Comment on above: Result Comment: SHONNA GEMENT OF PATIENT CARE PER NURSING PROTOCOL Performed By: #### L 501.080 #### [facility] [address] [place], [address] FINGERSTICK GLU 236 mg/dL High [facility]106 [facility] Comment on above: Result Comment: SHONNA GEMENT OF PATIENT CARE PER NURSING PROTOCOL Performed By: #### L 501.080 #### [facility] [address] [place], [address] FINGERSTICK GLU 180 mg/dL [address] Comment on above: Result Comment: SHONNA GEMENT OF PATIENT CARE PER NURSING PROTOCOL Performed By: #### L 501.080 #### [facility] [address] [place], [address] FINGERSTICK GLU 120 mg/dL [address] Comment on above: Result Comment: SHONNA GEMENT OF PATIENT CARE PER NURSING PROTOCOL Performed By: #### L 501.080 #### [facility] [address] [place], [address] Bilirubin Test strip Ql (U)O rdered By: Homero Mendosa on 06-14-2025 Bilirubin Ql (U) Negative Negative [facility] Bilirubin, totalOrdered By: Homero Mendosa on 06-14-2025 Bilirubin [Mass/Vol] 0.51 mg/dL 0.00-1.30 [facility] CBC W/Diff, Automatedon 06-05 Absolute Lymph 2.09 X10 3/uL Normal 0.83-4.51 [facility] Comment on above: Performed By: #### L 501.080 #### [facility] [address] [place], [address] Absolute Neut 9.5 X10 3/uL High 2.0-7.7 [facility] Comment on above: Performed By: #### L 501.080 #### [facility] [address] [place], [address] Basophils/100 WBC (Bld) 0.5 % Normal 0-1 [facility] Comment on above: Performed By: #### L 501.080 #### [facility] [address] [place], [address] Eosinophils/100 WBC (Bld) 0.3 % Normal 0-5 [facility] Comment on above: Performed By: #### L 501.080 #### [facility] [address] [place], [address] Erythrocyte distribution width (RBC) [Ratio] 14.0 % Normal 11.6-14.6 [facility] Comment on above: Performed By: #### L 501.080 #### [facility] [address] [place], [address] Hematocrit (Bld) [Volume fraction] 30.2 % Low 37-47 [facility] Comment on above: Performed By: #### L 501.080 #### [facility] [address] [place], [address] Hemoglobin (Bld) [Mass/Vol] 9.8 g/dL Low 12.0-15.0 [facility] Comment on above: Performed By: #### L 501.080 #### [facility] [address] [place], [address] IG% 0.300 Normal 0.0-0.9 [facility] Comment on above: Result Comment: IG% - Immature Granulocytes (promyelocytes, myelocytes and metamyelocytes) > 1% indicates that a LEFT SHIFT is Present. Performed By: #### L 501.080 #### [facility] [address] [place], [address] Lymphocytes/100 WBC (Bld) 16.9 % Low 19-41 [facility] Comment on above: Performed By: #### L 501.080 #### [facility] [address] [place], [address] MCH (RBC) [Entitic mass] 29.4 pg Normal 27.0-32.0 [facility] Comment on above: Performed By: #### L 501.080 #### [facility] [address] [place], [address] MCHC (RBC) [Mass/Vol] 32.5 g/dL Normal 32-36 [facility] Comment on above: Performed By: #### L 501.080 #### [facility] [address] [place], [address] MCV (RBC) [Entitic vol] 90.7 fL Normal 81-99 [facility] Comment on above: Performed By: #### L 501.080 #### [facility] [address] [place], [address] Monocytes/100 WBC (Bld) 4.9 % Normal 0-10 [facility] Comment on above: Performed By: #### L 501.080 #### [facility] [address] [place], [address] Neutrophils/100 WBC (Bld) 77.1 % High 47-70 [facility] Comment on above: Performed By: #### L 501.080 #### [facility] [address] [place], [address] Nucleated RBC (Bld) [#/Vol] 0 10*3/uL Normal 0-5 [facility] Comment on above: Performed By: #### L 501.080 #### [facility] [address] [place], [address] Platelet mean volume (Bld) [Entitic vol] 10.5 fL Normal 6.2-12.0 [facility] Comment on above: Performed By: #### L 501.080 #### [facility] [address] [place], [address] Platelets (Bld) [#/Vol] 342 10*3/uL Normal 150-450 [facility] Comment on above: Performed By: #### L 501.080 #### [facility] [address] [place], [address] RBC (Bld) [#/Vol] 3.33 10*6/uL Low 4.2-5.4 [place] Comment on above: Performed By: #### L 501.080 #### [facility] [address] [place], [address] RDW SD 46.9 fl High 35.1-43.9 [facility] Comment on above: Performed By: #### L 501.080 #### [facility] [address] [place], [address] WBC (Bld) [#/Vol] 12.3 10*3/uL High 4.4-11.0 [place] Comment on above: Performed By: #### L 501.080 #### [facility] [address] [place], [address] Carbon dioxide, total [Moles /volume] in Central venous bloodOrdered By: Homero Mendosa on 06-14-2025 CO2 [Moles/Vol] 17.1 mmol/L Low 21.0-32.0 [facility] Chest PA and Lateralon 06-14 Chest PA and Lateral [facility] Imaging Services [address] [place] [address] Chest PA and Lateral MR#: [id number] Acct: [id number] Name: CICI WOODWARD Rep #: [id number] : 1935 F 89 From: Therese Goss MD PCP: Dr. Anju Pearce MD Status: REG ER Study: Chest PA and Lateral Date of Exam: 06/14/25 Exam# [id number] Ordering Dr: Homero Mendosa MD PROCEDURE: CHEST [...] Cardiomegaly with mild vascular congestion. Reading Location: [facility] CC: Dr. Homero Mendosa MD; Dr. Anju Pearce MD Assistant Women'S Tennis Coach: Signed Normal [facility] Chloride assayOrdered By: Cm Mendosa on 06-14-2025 Chloride [Moles/Vol] 105 mmol/L 98-108 [facility] Comprehensive Metabolic Prof ilon 06-14-2025 Albumin [Mass/Vol] 4.2 g/dL Normal 3.4-4.8 [facility] Comment on above: Performed By: #### L 501.080 #### [facility] [address] [facility] [address] [place], [place], [address] Albumin/Globulin [Mass ratio] 1.4 {ratio} Normal 0.9-2.4 [facility] Comment on above: Performed By: #### L 501.080 #### [facility] [address] [place], [place], [address] ALK PHOS 94 U/L Normal 35-104 [facility] Comment on above: Performed By: #### L 501.080 #### [facility] [address] [place], [address] ALT [Catalytic activity/Vol] 19 U/L Normal <=34 [facility] Comment on above: Performed By: #### L 501.080 #### [facility] [address] [place], [address] AST [Catalytic activity/Vol] 23 U/L Normal <=31 [facility] Comment on above: Performed By: #### L 501.080 #### [facility] [address] [place], [address] Bilirubin [Mass/Vol] 0.51 mg/dL Normal 0.00-1.30 [facility] Comment on above: Performed By: #### L 501.080 #### [facility] [address] [place], [address] BUN/CRE 21.4 RATIO High 10-20 [facility] Comment on above: Performed By: #### L 501.080 #### [facility] [address] [place], [address] Calcium [Mass/Vol] 9.5 mg/dL Normal 7.6-11.0 [facility] Comment on above: Performed By: #### L 501.080 #### [facility] [address] [place], [address] Chloride [Moles/Vol] 105 mmol/L Normal 98-108 [facility] Comment on above: Performed By: #### L 501.080 #### [facility] [address] [place], [address] CO2 [Moles/Vol] 17.1 mmol/L Low 21.0-32.0 [facility] Comment on above: Performed By: #### L 501.080 #### [facility] [address] [place], [address] Creatinine [Mass/Vol] 2.46 mg/dL High 0.70-1.20 [facility] Comment on above: Performed By: #### L 501.080 #### [facility] [address] [place], [address] ECRCL 15.50 ml/min Low 50-250 [facility] Comment on above: Performed By: #### L 501.080 #### [facility] [address] [place], [address] GAP 15 Normal 5-15 [facility] Comment on above: Performed By: #### L 501.080 #### [facility] [address] [place], [address] GFR/1.73 sq M.predicted among non-blacks MDRD (S/P/Bld) [Vol rate/Area] 18 mL/min/{1.73_m2} Low >60 [facility] Comment on above: Result Comment: mL/m in/1.73m2 CKD-EPI Creatinine Equation (2020) Performed By: #### L 501.080 #### [facility] [address] [place], [address] Globulin (S) [Mass/Vol] 2.9 g/dL Normal 2.2-4.2 [facility] Comment on above: Performed By: #### L 501.080 #### [facility] [address] [place], [address] Glucose [Mass/Vol] 156 mg/dL High 70-99 [facility] Comment on above: Performed By: #### L 501.080 #### [facility] [address] [place], [address] Potassium [Moles/Vol] 4.7 mmol/L Normal 3.3-5.1 [facility] Comment on above: Performed By: #### L 501.080 #### [facility] [address] [place], [address] Sodium [Moles/Vol] 136 mmol/L Normal 133-145 [facility] Comment on above: Performed By: #### L 501.080 #### [facility] [address] [place], [address] T PROT 7.1 g/dL Normal 5.9-8.4 [facility] Comment on above: Performed By: #### L 501.080 #### [facility] [address] [place], [place], [address] Urea nitrogen [Mass/Vol] 53 mg/dL High 4-19 [facility] Comment on above: Performed By: #### L 501.080 #### [facility] [address] [place], [place], [address] Emergency Department Summary on 06-14-2025 Emergency Department Summary [facility] Medical Records Department [address] [place] [address] Emergency Department Summary 06/14/25 MR#: [id number] Acct: [id number] Name: CICI WOODWARD Rep #: [id number] : 1935 89 From: Homero Mendosa MD [...] chronic kidney disease, diabetes, hypertension and prior SD with CABG. States she just feels generally weak. She was seen at the [facility] urgent care. Diagnosed with a possible [...] similar symptoms: Yes Recent Illness/Hospitalization : No [facility] Medical History Atherosclerosis of coronary artery of [place] heart without angina pectoris Bilateral renal cysts [...] Psychiatric: Den (more content not included)... Normal [facility] Eosinophil percentageOrdered By: Homero Mendosa on 06-14-2025 Eosinophils/100 WBC (Bld) 0.3 % 0-5 [facility] Erythrocyte distribution wid th ratioOrdered By: Homero Mendosa on 06-14-2025 Erythrocyte distribution width (RBC) [Ratio] 14.0 % 11.6-14.6 [facility] Erythrocyte distribution wid th standard deviationOrdered By: Homero Mendosa on 06-14-2025 Erythrocyte distribution width (RBC) [Ratio] 46.9 fl High 35.1-43.9 [facility] Glomerular filtration rate ( GFR) estimation/1.73 sq m using serum, plasma, or whole bOrdered By: Homero Mendosa on 06-14-2025 GFR/1.73 sq M.predicted among non-blacks MDRD (S/P/Bld) [Vol rate/Area] 18 mL/min/{1.73_m2} Low >60 [facility] Comment on above: mL/min/1.73m2 CKD-EP I Creatinine Equation (2020) [facility] deOrdered By: Homero Mendosa on 06-14-2025 Glucose [Mass/Vol] 120 mg/dL High 74-106 [facility] Comment on above: MANAGEMENT OF PATIEN T CARE PER NURSING PROTOCOL H AND P Exam - Hospitaliston 06-14-2025 H&P Exam - Hospitalist [facility] Medical Records Department [address] [place] [address] H P Exam - Hospitalist 06/14/25 1131 MR#: [id number] Acct: [id number] Name: CICI WOODWARD Rep #: [id number] : 1935 89 From: Ventura Ivy MD PCP: Dr. Anju Pearce MD Status:ADM IN Location: [facility] [id number] HPI - General General Date of Admission: [...] nursing floor as a case of [facility] Medical History Atherosclerosis of coronary artery of [place] heart without angina pectoris Bilateral renal cysts [...] F 98 (more content not included)... Normal [facility] Hematocrit Auto (Bld) [Volum e fraction]Ordered By: Homero Mendosa on 06-14-2025 Hematocrit (Bld) [Volume fraction] 30.2 % Low 37-47 [facility] Hemoglobin measurementOrdere d By: Homero Mendosa on 06-14-2025 Hemoglobin (Bld) [Mass/Vol] 9.8 g/dL Low 12.0-15.0 [facility] Hyaline casts LM.LPF (Urine sed) [#/Area]Ordered By: Homero Mendosa on 06-14-2025 Hyaline casts (Urine sed) [#/Area] 0 /[LPF] 0-5 [facility] Immature granulocytes/100 WB C Auto (Bld)Ordered By: Homero Mendosa on 06-14-2025 Immature granulocytes/100 WBC (Bld) 0.300 % 0.0-0.9 [facility] Comment on above: IG% - Immature Granu locytes (promyelocytes, myelocytes and metamyelocytes) > 1% indicates that a LEFT SHIFT is Present. Ketones Test strip Ql (U)Ord ered By: Homero Mendosa on 06-14-2025 Ketones Ql (U) Negative Negative [facility] - Chemistry and C hemistry - challengeOrdered By: Homero Mendosa on 06-14-2025 AST [Catalytic activity/Vol] 23 U/L <32 [facility] MCV (mean corpuscular volume ) determinationOrdered By: Homero Mendosa on 06-14-2025 MCV (RBC) [Entitic vol] 90.7 fL 81-99 [facility] Mean corpuscular hemoglobin (MCH) determinationOrdered By: Homero Mendosa on 06-14-2025 MCH (RBC) [Entitic mass] 29.4 pg 27.0-32.0 [facility] Mean corpuscular hemoglobin concentration (MCHC) determinationOrdered By: Homero Mendosa on 06-14-2025 MCHC (RBC) [Mass/Vol] 32.5 g/dL 32-36 [facility] Mean platelet volume determi nationOrdered By: Homero Mendosa on 06-14-2025 Platelet mean volume (Bld) [Entitic vol] 10.5 fL 6.2-12.0 [facility] Microscopic analysis of urin e for red blood cells (RBC)Ordered By: Homero Mendosa on 06-14-2025 Microscopic analysis of urine for red blood cells (RBC) 0-5 SEEN /hpf 0-5 [facility] Monocyte percentageOrdered B y: Homero Mendosa on 06-14-2025 Monocytes/100 WBC (Bld) 4.9 % 0-10 [facility] Mucus LM Ql (Urine sed)Order ed By: Homero Mendosa on 06-14-2025 Mucus Ql (Urine sed) 0 SEEN /hpf [facility] Neutrophil percentageOrdered By: Homero Mendosa on 06-14-2025 Neutrophils/100 WBC (Bld) 77.1 % High 47-70 [facility] Nitrite Test strip Ql (U)Ord ered By: Homero Mendosa on 06-14-2025 Nitrite Ql (U) Negative Negative [facility] Nucleated red blood cell per centageOrdered By: Homero Mendosa on 06-14-2025 Nucleated RBC/100 WBC (Bld) [Ratio] 0 % 0- [facility] Platelet countOrdered By: Cm Mendosa on 06-14-2025 Platelets (Bld) [#/Vol] 342 10*3/uL 150-450 [facility] Potassium measurement (mass/ volume)Ordered By: Homero Mendosa on 06-14-2025 Potassium (Unsp spec) [Mass/Vol] 4.7 mmol/L 3.3-5.1 [facility] Protein Test strip Ql (U)Ord ered By: Homero Mendosa on 06-14-2025 Protein Ql (U) 500 mg/dl High Negative [facility] RBC Auto (Bld) [#/Vol]Ordere d By: Homero Mendosa on 06-14-2025 RBC (Bld) [#/Vol] 3.33 10*6/uL Low 4.2-5.4 [place] Serum creatinine measurement (mass/volume)Ordered By: Homero Mendosa on 06-14-2025 Creatinine [Mass/Vol] 2.46 mg/dL High 0.70-1.20 [facility] Serum globulin measurementOr dered By: Homero Mendosa on 06-14-2025 Globulin (S) [Mass/Vol] 2.9 g/dL 2.2-4.2 [facility] Serum glucose measurement (m ass/volume)Ordered By: Homero Mendosa on 06-14-2025 Glucose [Mass/Vol] 156 mg/dL High 70-99 [facility] Serum or plasma alanine balbuena otransferase (ALT) measurementOrdered By: Homero Mendosa on 06-14-2025 ALT [Catalytic activity/Vol] 19 U/L <35 [facility] Serum or plasma albumin anita urement (mass/volume)Ordered By: Homero Mendosa on 06-14-2025 Albumin [Mass/Vol] 4.2 g/dL 3.4-4.8 [facility] Serum or plasma albumin/glob ulin mass ratioOrdered By: Homero Mendosa on 06-14-2025 Albumin/Globulin [Mass ratio] 1.4 {ratio} 0.9-2.4 [facility] Serum or plasma alkaline abdoul sphatase measurementOrdered By: Homero Mendosa on 06-14-2025 ALP [Catalytic activity/Vol] 94 U/L 35-104 [facility] Serum or plasma calcium anita urement (mass/volume)Ordered By: Homero Mendosa on 06-14-2025 Calcium [Mass/Vol] 9.5 mg/dL 7.6-11.0 [facility] Serum or plasma urea nitroge n measurement (mass/volume)Ordered By: Homreo Mendosa on 06-14-2025 Urea nitrogen [Mass/Vol] 53 mg/dL High 4-19 [facility] Sodium levelOrdered By: Homero Mendosa on 06-14-2025 Sodium [Moles/Vol] 136 mmol/L 133-145 [facility] Squamous epithelial cells de tection in urine sediment by light microscopyOrdered By: Homero Mendosa on 06-14-2025 Epithelial cells.squamous LM Ql (Urine sed) 0-5 SEEN /hpf -10 [facility] Total proteinOrdered By: Tk Mendosa on 06-14-2025 Protein [Mass/Vol] 7.1 g/dL 5.9-8.4 [facility] Urinalysis, Completeon 06-14 CAST,HYALINE 0-5 SEEN Normal 0-5 [facility] Comment on above: Order Comment: CLEAN CATCH Performed By: #### L 501.080 #### [facility] [address] [place], [address] EPI,SQUAMOUS 0-5 SEEN Normal -10 [facility] Comment on above: Order Comment: CLEAN CATCH Performed By: #### L 501.080 #### [facility] [address] [place], [address] RBC 0-5 SEEN Normal 0-5 [facility] Comment on above: Order Comment: CLEAN CATCH Performed By: #### L 501.080 #### [facility] [address] [place], [address] WBC 0-5 SEEN Normal 0-[address] [place] [address] Comment on above: Order Comment: CLEAN CATCH Performed By: #### L 501.080 #### [facility] [address] [place], [address] BACTERIA 0 SEEN Normal None Seen [facility] Comment on above: Order Comment: CLEAN CATCH Performed By: #### L 501.080 #### [facility] [address] [place], [address] Mucus Ql (Urine sed) 0 SEEN Normal [facility] Comment on above: Order Comment: CLEAN CATCH Performed By: #### L 501.080 #### [facility] [address] [place], [address] Urine clarityOrdered By: Tk Mendosa on 06-14-2025 Clarity (U) Clear Clear [facility] Urine color determinationOrd ered By: Homero Mendosa on 06-14-2025 Color (U) Yellow Yellow [facility] Urine glucose detectionOrder ed By: Homero Mendosa on 06-14-2025 Glucose Ql (U) 100 mg/dl High Normal [facility] Urine leukocyte esterase det ection by dipstickOrdered By: Homero Mendosa on 06-14-2025 Leukocyte esterase Test strip Ql (U) Negative Negative [facility] Urine pHOrdered By: Homero castro on 06-14-2025 pH (U) 6.0 [pH] 5.0 - 8.0 [facility] Urine sediment bacteria coun t by microscopy (number/high power field)Ordered By: Homero Mendosa on 06-14-2025 Bacteria LM.HPF (Urine sed) [#/Area] 0 /[HPF] None Seen [facility] Urine specific gravity measu rementOrdered By: Homero Mendosa on 06-14-2025 Specific gravity (U) [Rel density] 1.020 1.002-1.030 [facility] Urine urobilinogen measureme ntOrdered By: Homero Mendosa on 06-14-2025 Urobilinogen Ql (U) Normal mg/dl Normal [facility] White blood cell (WBC) count Ordered By: Homero Mendosa on 06-14-2025 WBC (Bld) [#/Vol] 12.3 10*3/uL High 4.4-11.0 [place] White blood cell countOrdere d By: Homero Mendosa on 06-14-2025 White blood cell count 0-5 SEEN /hpf 0-5 [facility] Bacteria Ur Culton Bacteria identified Cx Nom (U) CULTURE, URINE: Mixed microbiota, including predominantly: ORGANISM ID: 1 50,000-<100,000 CFU/ml Streptococcus anginosus No susceptibility testing done. Normal [facility] Comment on above: Performed By: #### 6 30-4 ####[facility] [id number] [place] [address] [place] CNOVon 06-02-2025 CNOV Office Visit (WOUCA) CICI WOODWARD I ([id number]) 1935 F Date Time Provider Department 06/02/25 10:00 AM CLEMENT CORTES During your visit today, we recorded the following information about you: Temperature Pulse Respiration Blood pressure 97 degrees 72/minute 16/minute 124/66 Weight 74.9 kg Clement Cortes APRN.[facility] 06/02/2025 10:21 AM Signed URGENT CARE [...] other causes of hematuria. and Recording using [employer] software for draft documentation of the visit was discussed with the patient/authorized consumer sales representative; all questions welcomed and answered. Patient/authorized consumer sales representative agreed to proceed MDM Procedures Allergies As of Date: 06/02/2025 Noted Allergy Reaction BACTRIM (SULFAMETHOXAZOLE-TRIME TH*06/10/2008 11 - Vomiting CODEINE 08/31/2005 11 - Vomiting FARXIGA (DAPAGLIFLOZIN) 09/12/2024 8 - GI Upset PREDNISONE 09/05/2012 11 - Vomiting STATINS (RYSWBAB-RVZ-GID REDUCTAS*05/25/2009 5 - Intolerance ULTRAM (TRAMADOL HCL) 01/17/2013 11 - Vomiting Date Reviewed: 05/14/2025 Reviewed by: Ishmael Davis APRN.BARBED WIRE MACHINE OPERATOR - Fully Assessed Reason for Visit: Pelvic Pain [282] Cmt: pressure x 3 days Primary Visit Diagnosis:Pelvic pain [R10.2] Other Visit Diagnosis:Hematuria, unspecified type [R31.9] Order(s):UA DIP, URINE (POC) [[id number]] Order #: [id number]. #:[id number] BACTERIAL CULTURE, URINE [SQURCUL] Order #: [id number]. #:[id number] cephALEXin (KEFLEX) 250 mg capsuleTake 1 capsule [...] 3 times daily Insulin Yes - Insulin [place], Disposable, (BD ULTRA-FINE JOHN PEN NEEDLE) 32 [...] ophthalmic e (more content not included)... Normal [facility] UA DIP, URINE (POC)on 2024 BILIRUBIN UA (POCT) Negative Negative [facility] CLARITY UA (POCT) Clear [facility] COLOR UA (POCT) Yellow [facility] GLUCOSE UA (POCT) 100 mg/dL Abnormal Negative [facility] Hemoglobin Ql (U) Trace-intact Abnormal Negative [facility] Interpretation and review of laboratory results Abnormal [facility] KETONE UA (POCT) Negative Negative mg/dL [facility] LEUKOCYTES UA (POCT) Negative [facility] NITRITE UA (POCT) Negative Negative [facility] PH UA (POCT) 5.5 4.5 - 8.0 [facility] Protein Ql (U) >=300 Abnormal Negative mg/dL [facility] SPECIFIC GRAVITY UA (POCT) 1.025 1.005 - 1.030 [facility] UROBILINOGEN UA (POCT) 0.2 Tricia l E.U./dL [facility] Location: [place], [address] [facility], [place], [address] [facility] POINT OF CARE [facility] CNOVon 05-14-2025 CNOV Office Visit (INTMWS ) CICI WOODWARD I ([id number]) 1935 F Date Time Provider Department 05/14/25 1:40 PM ISHMAEL DAVIS INTMWS During your visit today, we recorded the following information about you: Pulse Blood pressure Weight Height 69/minute 152/77 74.8 kg 1.565 m Ishmael Davis APRN.BARBED WIRE MACHINE OPERATOR 05/14/2025 2:06 PM Addendum Latest Ref Rng [...] review all the medicines you take, even clkf-luh-ngqlyuk medicines. As you get older, the way [...] you have certain medical conditions. Ishmael Davis, ALCIRA.BARBED WIRE MACHINE OPERATOR 07/03/2025 3:20 PM Addendum Cici Woodward is [...] Current Prov (more content not included)... Normal [facility] 25(OH)D3 [facility]-yuridia 2024 25-hydroxyvitamin D3 [Mass/Vol] 36.0 ng/mL Normal 31.0-80.0 [facility] Comment on above: Order Comment: Luis Armando schaffer Type: BLOOD SPECIMEN Ordering Facility: [facility] Address: [address] [place] [address] Result Comment: Clas sification of 25 [place] Vitamin D status: Deficiency/Insufficiency: < or = 30 ng/ml. Sufficiency/Optimal Levels: 31-80 ng/mL Toxicity: > 100 ng/mL. Test performed by chemiluminescent immunoassay. Performed By: #### 5 5454-3 #### [facility] CLIA [id number] [address] [place] [address] [place] ALBUMIN/CREATININE RATIO, UR INEon 05-13-2025 Albumin DL <= 20 mg/L (U) [Mass/Vol] 1451.0 mg/L Normal [facility] Comment on above: Order Comment: Luis Armando schaffer Type: BLOOD SPECIMEN Ordering Facility: [facility] Address: [address] [place] [address] Performed By: #### 5 5454-3 #### [facility] CLIA [id number] [address] [place] [address] [place] Albumin/Creatinine (U) [Mass ratio] 1742 mg/g High <30 [facility] Comment on above: Order Comment: Luis Armando schaffer Type: BLOOD SPECIMEN Ordering Facility: [facility] Address: [address] [place] [address] Result Comment: Adul t Male and Female Nephrotic Criteria: <30 mg/g is considered normal to mildly increased 30-300 mg/g is considered moderately increased >300 mg/g is considered severely increased KDIGO. (2013). KDIGO 2012 Clinical Practice Guideline for the Evaluation and Management of Chronic Kidney Disease. Official Journal of the International Society of Nephrology, 3(1), 1-150. Performed By: #### 5 5454-3 #### [facility] CLIA [id number] [address] [place] [address] [place] Creatinine (U) [Mass/Vol] 83.3 mg/dL Normal 20.0-300.0 [facility] Comment on above: Order Comment: Speci men Type: BLOOD SPECIMEN Ordering Facility: [facility] Address: [address] [place] [address] Performed By: #### 5 5454-3 #### [facility] CLIA [id number] [address] [place] [address] [place] CBC panel Auto (Bld)on 05-13 Erythrocyte distribution width (RBC) [Ratio] 14.0 % Normal 11.5-15.0 [facility] Comment on above: Order Comment: Speci men Type: BLOOD SPECIMEN Ordering Facility: [facility] Address: [address] [place] [address] Performed By: #### 5 5454-3 #### [facility] CLIA [id number] [address] [place] [address] [place] Hematocrit (Bld) [Volume fraction] 32.0 % Low 36.0-46.0 [facility] Comment on above: Order Comment: Speci men Type: BLOOD SPECIMEN Ordering Facility: [facility] Address: [address] [place] [address] Performed By: #### 5 5454-3 #### [facility] CLIA [id number] [address] [place] [address] [place] Hemoglobin (Bld) [Mass/Vol] 10.6 g/dL Low 11.5-15.5 [facility] Comment on above: Order Comment: Speci men Type: BLOOD SPECIMEN Ordering Facility: [facility] Address: [address] [place] [address] Performed By: #### 5 5454-3 #### [facility] CLIA [id number] [address] [place] [address] [place] MCH (RBC) [Entitic mass] 30.3 pg Normal 26.0-34.0 [facility] Comment on above: Order Comment: Speci men Type: BLOOD SPECIMEN Ordering Facility: [facility] Address: [address] [place] [address] Performed By: #### 5 5454-3 #### [facility] CLIA [id number] [address] [place] [address] [place] MCHC (RBC) [Mass/Vol] 33.1 g/dL Normal 30.5-36.0 [facility] Comment on above: Order Comment: Speci men Type: BLOOD SPECIMEN Ordering Facility: [facility] Address: [address] [place] [address] Performed By: #### 5 5454-3 #### [facility] CLIA [id number] [address] [place] [address] [place] MCV (RBC) [Entitic vol] 91.4 fL Normal 80.0-100.0 [facility] Comment on above: Order Comment: Speci men Type: BLOOD SPECIMEN Ordering Facility: [facility] Address: [address] [place] [address] Performed By: #### 5 5454-3 #### [facility] CLIA [id number] [address] [place] [address] [place] Nucleated RBC (Bld) [#/Vol] 10*3/uL Normal <0.01 [facility] Comment on above: Order Comment: Speci men Type: BLOOD SPECIMEN Ordering Facility: [facility] Address: [address] [place] [address] Performed By: #### 5 5454-3 #### [facility] CLIA [id number] [address] [place] [address] [place] Platelet mean volume (Bld) [Entitic vol] 11.5 fL Normal 9.0-12.7 [facility] Comment on above: Order Comment: Speci men Type: BLOOD SPECIMEN Ordering Facility: [facility] Address: [address] [place] [address] Performed By: #### 5 5454-3 #### [facility] CLIA [id number] [address] [place] [address] [place] Platelets (Bld) [#/Vol] 255 10*3/uL Normal 150-400 [facility] Comment on above: Order Comment: Speci men Type: BLOOD SPECIMEN Ordering Facility: [facility] Address: [address] [place] [address] Performed By: #### 5 5454-3 #### [facility] CLIA [id number] [address] [place] [address] [place] RBC (Bld) [#/Vol] 3.50 10*6/uL Low 3.90-5.20 [facility] Comment on above: Order Comment: Speci men Type: BLOOD SPECIMEN Ordering Facility: [facility] Address: [address] [place] [address] Performed By: #### 5 5454-3 #### [facility] CLIA [id number] [address] [place] [address] [place] WBC (Bld) [#/Vol] 8.07 10*3/uL Normal 3.70-11.00 [facility] Comment on above: Order Comment: Speci men Type: BLOOD SPECIMEN Ordering Facility: [facility] Address: [address] [place] [address] Performed By: #### 5 5454-3 #### [facility] CLIA [id number] [address] [place] [address] [place] Comprehensive metabolic 2000 panelon 05-13-2025 Albumin [Mass/Vol] 4.2 g/dL Normal 3.9-4.9 [facility] Comment on above: Order Comment: Speci men Type: BLOOD SPECIMEN Ordering Facility: [facility] Address: [address] [place] [address] Performed By: #### 5 5454-3 #### [facility] CLIA [id number] [address] [place] [address] [place] ALP [Catalytic activity/Vol] 92 U/L Normal 34-123 [facility] Comment on above: Order Comment: Speci men Type: BLOOD SPECIMEN Ordering Facility: [facility] Address: [address] [place] [address] Performed By: #### 5 5454-3 #### [facility] CLIA [id number] [address] [place] [address] [place] ALT [Catalytic activity/Vol] 16 U/L Normal 7-38 [facility] Comment on above: Order Comment: Speci men Type: BLOOD SPECIMEN Ordering Facility: [facility] Address: [address] [place] [address] Performed By: #### 5 5454-3 #### [facility] CLIA [id number] [address] [place] [address] [place] Anion gap [Moles/Vol] 14 mmol/L Normal 8-15 [facility] Comment on above: Order Comment: Speci men Type: BLOOD SPECIMEN Ordering Facility: [facility] Address: [address] [place] [address] Performed By: #### 5 5454-3 #### [facility] CLIA [id number] [address] [place] [address] [place] AST [Catalytic activity/Vol] 15 U/L Normal 13-35 [facility] Comment on above: Order Comment: Speci men Type: BLOOD SPECIMEN Ordering Facility: [facility] Address: [address] [place] [address] Performed By: #### 5 5454-3 #### [facility] CLIA [id number] [address] [place] [address] [place] Bilirubin [Mass/Vol] 0.4 mg/dL Normal 0.2-1.3 [facility] Comment on above: Order Comment: Speci men Type: BLOOD SPECIMEN Ordering Facility: [facility] Address: [address] [place] [address] Performed By: #### 5 5454-3 #### [facility] CLIA [id number] [address] [place] [address] [place] Calcium [Mass/Vol] 9.7 mg/dL Normal 8.5-10.2 [facility] Comment on above: Order Comment: Speci men Type: BLOOD SPECIMEN Ordering Facility: [facility] Address: [address] [place] [address] Performed By: #### 5 5454-3 #### [facility] CLIA [id number] [address] [place] [address] [place] Chloride [Moles/Vol] 106 mmol/L Normal 98-107 [facility] Comment on above: Order Comment: Speci men Type: BLOOD SPECIMEN Ordering Facility: [facility] Address: [address] [place] [address] Performed By: #### 5 5454-3 #### [facility] CLIA [id number] [address] [place] [address] [place] CO2 [Moles/Vol] 18 mmol/L Low 22-30 [facility] Comment on above: Order Comment: Speci men Type: BLOOD SPECIMEN Ordering Facility: [facility] Address: [address] [place] [address] Performed By: #### 5 5454-3 #### [facility] CLIA [id number] [address] [place] [address] [place] Creatinine [Mass/Vol] 2.29 mg/dL High 0.58-0.96 [facility] Comment on above: Order Comment: Speci men Type: BLOOD SPECIMEN Ordering Facility: [facility] Address: [address] [place] [address] Performed By: #### 5 5454-3 #### [facility] CLIA [id number] [address] [place] [address] [place] Creatinine and Glomerular filtration rate.predicted panel (S/P/Bld) 20 mL/min/1.73m??? Low >=60 [facility] Comment on above: Order Comment: Luis Armando schaffer Type: BLOOD SPECIMEN Ordering Facility: [facility] Address: [address] [place] [address] Result Comment: Kathie mated Glomerular Filtration Rate [...] GFR. Performed By: #### 5 5454-3 #### [facility] CLIA [id number] [address] [place] [address] [place] Glucose [Mass/Vol] 125 mg/dL High 74-99 [facility] Comment on above: Order Comment: Luis Armando schaffer Type: BLOOD SPECIMEN Ordering Facility: [facility] Address: [address] [place] [address] Result Comment: The [place] Diabetes Association (ADA) provides guidance for cutoff [...] Standards of Medical Care in Diabetes 2016, [place] [employer] Association. Diabetes Care. 2016.39(Suppl 1). Performed By: #### 5 5454-3 #### [facility] CLIA [id number] [address] [place] [address] [place] Potassium [Moles/Vol] 4.6 mmol/L Normal 3.7-5.1 [facility] Comment on above: Order Comment: Luis Armando schaffer Type: BLOOD SPECIMEN Ordering Facility: [facility] Address: [address] [place] [address] Performed By: #### 5 5454-3 #### [facility] CLIA [id number] [address] [place] [address] [place] Protein [Mass/Vol] 7.4 g/dL Normal 6.3-8.0 [facility] Comment on above: Order Comment: Speci men Type: BLOOD SPECIMEN Ordering Facility: [facility] Address: [address] [place] [address] Performed By: #### 5 5454-3 #### [facility] CLIA [id number] [address] [place] [address] [place] Sodium [Moles/Vol] 138 mmol/L Normal 136-144 [facility] Comment on above: Order Comment: Speci men Type: BLOOD SPECIMEN Ordering Facility: [facility] Address: [address] [place] [address] Performed By: #### 5 5454-3 #### [facility] CLIA [id number] [address] [place] [address] [place] Urea nitrogen [Mass/Vol] 56 mg/dL High 7-21 [facility] Comment on above: Order Comment: Speci men Type: BLOOD SPECIMEN Ordering Facility: [facility] Address: [address] [place] [address] Performed By: #### 5 5454-3 #### [facility] CLIA [id number] [address] [place] [address] [place] HbA1c (Bld)on 05-13-2025 Average glucose Estimated from glycated hemoglobin (Bld) [Mass/Vol] 166 mg/dL Normal [facility] Comment on above: Order Comment: Speci men Type: BLOOD SPECIMEN Ordering Facility: [facility] Address: [address] [place] [address] Result Comment: eAG: (Estimated average glucose) is a calculated value from HgbA1c and is consumer sales representative of the average blood glucose level in the last 2-3 month period. Performed By: #### 5 5454-3 #### [facility] CLIA [id number] [address] [place] [address] [place] HbA1c (Bld) [Mass fraction] 7.4 % High 4.3-5.6 [facility] Comment on above: Order Comment: Luis Armando men Type: BLOOD SPECIMEN Ordering Facility: [facility] Address: [address] [place] [address] Result Comment: [place] Diabetes Association guidelines indicate that patients with HgbA1c in the range 5.7-6.4% are at increased risk for development of diabetes, and intervention by lifestyle modification may be beneficial. HgbA1c greater or equal to 6.5% is considered diagnostic of diabetes. Performed By: #### 5 5454-3 #### [facility] CLIA [id number] [address] [place] [address] [place] Lipid 1996 panelon 5 Cholesterol [Mass/Vol] 138 mg/dL Normal <200 [facility] Comment on above: Order Comment: Luis Armando men Type: BLOOD SPECIMEN Ordering Facility: [facility] Address: [address] [place] [address] Result Comment: <200 mg/dL, Desirable 200-239 mg/dL, Borderline high >239 mg/dL, High Performed By: #### 5 5454-3 #### [facility] CLIA [id number] [address] [place] [address] [place] Cholesterol in HDL [Mass/Vol] 51 mg/dL Normal >39 [facility] Comment on above: Order Comment: Luis Armando men Type: BLOOD SPECIMEN Ordering Facility: [facility] Address: [address] [place] [address] Result Comment: 40-5 9 mg/dL, Acceptable >59 mg/dL, High: Negative risk factor for coronary heart disease <40 mg/dL, Low: Positive risk factor for coronary heart disease Performed By: #### 5 5454-3 #### [facility] CLIA [id number] [address] [place] [address] [place] Cholesterol in LDL [Mass/Vol] 67 mg/dL Normal <100 [facility] Comment on above: Order Comment: Luis Armando schaffer Type: BLOOD SPECIMEN Ordering Facility: [facility] Address: [address] [place] [address] Result Comment: <100 mg/dL, Optimal 100-129 mg/dL, Near optimal/above optimal 130-159 mg/dL, Borderline high 160-189 mg/dL, High >189 mg/dL, Very high Secondary prevention optimal LDL Cholesterol levels are recommended to be <70 mg/dL LDL cholesterol is calculated using the Stafford-NIH equation. Performed By: #### 5 5454-3 #### [facility] CLIA [id number] [address] [place] [address] STATES [facility] Cholesterol in LDL/Cholesterol in HDL [Mass ratio] 1.31 {ratio} Normal <2.54 [facility] Comment on above: Order Comment: Luis Armando schaffer Type: BLOOD SPECIMEN Ordering Facility: [facility] Address: [address] [place] [address] Result Comment: Earnest stuart: 1. National Cholesterol Education Program ATP III Guideline At-A-Glance Quick Desk Reference: National Heart, Lung, and Blood [place]. National Institutes of Health. 2001: NIH Publication No. 01-3305. 2. An International Atherosclerosis Society position paper: global recommendations for the management of dyslipidemia: executive summary, Atherosclerosis. 2014: 232(2):410-413. Performed By: #### 5 5454-3 #### [facility] CLIA [id number] [address] [place] [address] [place] Cholesterol in VLDL [Mass/Vol] 16 mg/dL Normal <30 [facility] Comment on above: Order Comment: Luis Armando schaffer Type: BLOOD SPECIMEN Ordering Facility: [facility] Address: [address] [place] [address] Performed By: #### 5 5454-3 #### [facility] CLIA [id number] [address] [place] [address] [place] Cholesterol non HDL [Mass/Vol] 87 mg/dL Normal <130 [facility] Comment on above: Order Comment: Speci men Type: BLOOD SPECIMEN Ordering Facility: [facility] Address: [address] [place] [address] Result Comment: <130 mg/dL, Optimal 130-159 mg/dL, Near optimal/above optimal 160-189 mg/dL, Borderline high 190-219 mg/dL, High >219 mg/dL, Very high Secondary prevention optimal non HDL Cholesterol levels are recommended to be <100 mg/dL Performed By: #### 5 5454-3 #### [facility] CLIA [id number] [address] [place] [address] [place] Cholesterol.total/Clau sterol in HDL [Mass ratio] 2.71 {ratio} Normal <5.10 [facility] Comment on above: Order Comment: Speci men Type: BLOOD SPECIMEN Ordering Facility: [facility] Address: [address] [place] [address] Performed By: #### 5 5454-3 #### [facility] CLIA [id number] [address] [place] [address] [place] FASTING TIME 9 hrs Normal [facility] Comment on above: Order Comment: Speci men Type: BLOOD SPECIMEN Ordering Facility: [facility] Address: [address] [place] [address] Performed By: #### 5 5454-3 #### [facility] CLIA [id number] [address] [place] [address] [place] Triglyceride [Mass/Vol] 110 mg/dL Normal <150 [facility] Comment on above: Order Comment: Speci men Type: BLOOD SPECIMEN Ordering Facility: [facility] Address: [address] [place] [address] Result Comment: <150 mg/dL, Normal 150-199 mg/dL, Borderline high 200-499 mg/dL, High >499 mg/dL, Very high Performed By: #### 5 5454-3 #### [facility] CLIA [id number] [address] [place], [place] [address] [id number] [place] Urate SerPl-mCncon 5 Urate [Mass/Vol] 6.1 mg/dL Normal 2.5-6.6 Lars mcdonald [facility] Comment on above: Order Comment: Speci men Type: BLOOD SPECIMEN Ordering Facility: [facility] Address: [address] [place] [address] Performed By: #### 5 5454-3 #### [facility] CLIA [id number] [address] [place], [place] [address] [place] [id number] [place] Cardiology Visit Reporton Cardiology Visit Report [facility] [address] [place] [address] [place] [address] OFFICE VISIT Date of Service: 04/30/25 MR#: [id number] Acct: [id number] Name: CICI WOODWARD Rep #: [id number] : 1935 Provider: RANDY Silverio Age/Sex: 89/F Location: [facility] Status: Signed HPI HPI History of Present Illness Details: Cici Woodward is an 89-year-old female that presents here today for a cardiovascular follow-up. She was last to see us in the office in 2001. She has a history of coronary artery disease requiring bypass surgery. On January 09, 2020 she underwent a four-vessel bypass at [facility]. (GHOSH to diagonal sequenced to LAD, SVG to OM sequenced to RPL). Patient was found to have an EF of around 30% when she had presented with SD. This has since resolved. She has CKD and her lisinopril was discontinued due to rise in creatinine. She does not have any worsening SOB, orthopnea. She does not have any problems with her ADLS. She does go to [employer]. 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 Normal [facility] 04-21-2025 [facility] Telephone (INTMWS) CICI WOODWARD I ([id number]) 1935 F Date Time Provider Department 04/21/25 [...] Upset PREDNISONE 09/05/2012 11 - Vomiting STATINS ([id number] REDUCTAS*05/25/2009 5 - Intolerance ULTRAM (TRAMADOL HCL) [...] 3 times daily Insulin Yes - Insulin [place], Disposable, (BD ULTRA-FINE JOHN PEN NEEDLE) 32 [...] (HCC) [N18.32 (more content not included)... Normal [facility] CICI WOODWARD I ([id number]) 1935 F Date Time Provider Department 04/01/25 ANJU PEARCE INTMWS During your visit today, we recorded the following information about you: Kami Mccain, RN 04/01/2025 9:45 AM Signed Patient has contacted [facility] to transfer 2 of her [...] Upset PREDNISONE 09/05/2012 11 - Vomiting STATINS (UALGPXE-UZI-PHC REDUCTAS*05/25/2009 5 - Intolerance ULTRAM (TRAMADOL HCL) [...] 3 times daily Insulin Yes - Insulin [place], Disposable, (BD ULTRA-FINE JOHN PEN NEEDLE) 32 [...] 02/22/2015 Hi (more content not included)... Normal [facility] NT-proBNP [facility] 02-27 Natriuretic peptide.B prohormone N-Terminal [Mass/Vol] 4351 pg/mL High <450 [facility] Comment on above: Order Comment: Speci men Type: BLOOD SPECIMEN Ordering Facility: [facility] Address: [address] [place] [address] Performed By: #### 5 5454-3 #### [facility] CLIA [id number] [address] [place], [place] [address] [place] [address] [place] XR CHEST 2V [...] and small left pleural effusion since 02/19/2025 Assistant Women'S Tennis Coach: KURT Transcribe Date/Time: Feb 27 2025 10:17A Dictated by : SHARIFA BRO MD This examination was interpreted and the report reviewed and electronically signed by: SHARIFA BRO MD on Feb 27 2025 10:19AM EST [id number] Normal [facility] CNOVon 02-19-2025 CNOV Office Visit (INTMWS ) TRACECICI Gema ([id number]) 1935 F Date Time Provider Department 02/19/25 12:00 PM ISHMAEL DAVIS INTMWS During your visit today, we recorded the following information about you: Pulse Respiration Blood pressure Weight 80/minute 16/minute 163/69 76.8 kg Ishmael Davis APRN.BARBED WIRE MACHINE OPERATOR 02/19/2025 12:40 PM Signed SUBJECTIVE: LDL Cholesterol [...] History of CAD s/p CAB, followed by [facility]. Currently without symptomatic complaints. Recent cardiology visit 01/2025. Stopped Plavix. 6 month follow up. Labs [facility] 01/2025, BUN 42 Cr. 1.95 e [...] lancets ( (more content not included)... Normal [facility] CNOV Office Visit (WSTR ) CICI WOODWARD I ([id number]) 1935 F Date Time Provider Department 02/19/25 9:00 AM [address] ANGLIN [facility] During your visit today, we recorded the following information about you: Temperature Pulse Respiration Blood pressure 97 degrees 83/minute 18/minute 159/70 Weight 76.8 kg Caridad Anglin APRN.MACHINE BOSS 02/19/2025 10:02 AM Signed [facility] [...] history is provided by the patient. No speech/language therapist was used. Wheezing This is a new [...] hypercholesterolemia S/P CABG x 3 01/09/2020 @ [facility] by Dr. Rivera Stroke (cerebrum) ([facility]) 2014 Type II or unspecified type diabetes mellitus without mention of complication, uncontrolled Unspecified cardiovascular disease Unspecified essential hypertension Urgency of urination 2008 PAST SURGICAL HISTORY Procedure Laterality Date ANGIOPLASTY 1988 CABG (3) VEIN GRAFTS AND ARTERIAL GRAFT(S) 01/09/2020 @ [facility] by Dr. Rivera COLONOSCOPY FLX DX W/COLLJ SPEC WHEN PFRMD 08/29/07 LAPAROSCOPY SURG CHOLECYSTECTOMY Cholecystectomy, lap LEFT HEART CATH,CUTDOWN 1991 PAST SURGICAL HISTORY OF Tubal ALLERGIES Bactrim [Sulfamethoxazole-Trime thoprim], Codeine, Farxiga [Dapagliflozin], Prednisone, Statins [Szjdpnv-Cdi-Qnq Reductase Inhibitors], and Ultram [Tramadol Hcl] MEDICATIONS [...] 1 tablet by mouth once daily. Insulin [place], Disposable, (BD ULTRA-FINE JOHN PEN NEEDLE) 32 [...] 1 tab (more content not included)... Normal [facility] XR CHEST 2V FRONTAL/LATon XR CHEST 2V [...] mild interstitial edema with trace pleural effusions. Assistant Women'S Tennis Coach: KURT Transcribe Date/Time: Feb 19 2025 9:31A Dictated by : ALONZO LAGUNAS MD This examination was interpreted and the report reviewed and electronically signed by: ALONZO LAGUNAS MD on Feb 19 2025 9:32AM EST [id number] Normal [facility] XR Chest PA and Lateralon IMPRESSION: Findings most suggestive of mild interstitial edema with trace pleural effusions. Assistant Women'S Tennis Coach: KURT Transcribe Date/Time: Feb 19 2025 9:31A [...] the upper abdomen. DIVISION OF RADIOLOGY Provider, [facility] - 02/19/2025 * * *Final Report* * [...] mild interstitial edema with trace pleural effusions. Assistant Women'S Tennis Coach: PSCB Transcribe Date/Time: Feb 19 2025 9:31A Dictated by : ALONZO LAGUNAS MD This examination was interpreted and the report reviewed and electronically signed by: ALONZO LAGUNAS MD on Feb 19 2025 9:32AM EST [facility] Radiology Study observation (narrative) Lars mcdonald [facility] XR Chest PA and LateralOrder ed By: Ccf Provider on 02-19-2025 [facility] CNOVon 01-16-2025 CNOV Office Visit (INTMWS ) CICI WOODWARD I ([id number]) 1935 F Date Time Provider Department 01/16/25 1:00 PM ANJU PEARCE INTMWS During your visit today, we recorded the following information about you: Temperature Pulse Respiration Blood pressure 97 degrees 80/minute 16/minute 150/80 Weight Height 73.8 kg 1.565 m Anju Pearce MD 01/16/2025 2:02 PM Signed This note was created using [employer]. 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 Rivera Stroke (cerebrum) ([facility]) 2013 Type II or unspecified type diabetes [...] by mouth once daily as directed Insulin [place], Disposable, (BD ULTRA-FINE JOHN PEN NEEDLE) 32 [...] % opht (more content not included)... Normal [facility] Absolute lymphocyte countOrd ered By: Brionna Malin on 01-05-2025 Lymphocytes Auto (Unsp spec) [#/Vol] 2.43 10*3/uL 0.83-4.51 [facility] Absolute neutrophil countOrd ered By: Brionna Malin on 01-05-2025 Neutrophils (Bld) [#/Vol] 4.0 10*3/uL 2.0-7.7 [facility] Automated lymphocyte count a s percentage of total leukocytesOrdered By: Brionna Malin on 01-05-2025 Lymphocytes/100 WBC Auto (Unsp spec) 35.0 % 19- [facility] BUN/creatinine ratioOrdered By: Brionna Malin on 01-05-2025 Urea nitrogen/Creatinine [Mass ratio] 21.5 mg/mg High 10-20 [facility] Basic Metabolic Profile (BMP )on 01-05-2025 Anion gap [Moles/Vol] 13 mmol/L Normal 5-15 [facility] Comment on above: Performed By: #### L 501.080 #### [facility] [address] [place], [address] BUN/CRE 21.5 RATIO High 10-20 [facility] Comment on above: Performed By: #### L 501.080 #### [facility] [address] [place], [address] Calcium [Mass/Vol] 9.1 mg/dL Normal 7.6-11.0 [facility] Comment on above: Performed By: #### L 501.080 #### [facility] [address] [place], [address] Chloride [Moles/Vol] 105 mmol/L Normal 96-108 [facility] Comment on above: Performed By: #### L 501.080 #### [facility] [address] [place], [address] CO2 [Moles/Vol] 18.9 mmol/L Low 22.0-29.0 [facility] Comment on above: Performed By: #### L 501.080 #### [facility] [address] [place], [address] Creatinine [Mass/Vol] 1.95 mg/dL High 0.70-1.20 [facility] Comment on above: Performed By: #### L 501.080 #### [facility] [address] [place], [address] ECRCL 20.25 ml/min Low 50-250 [facility] Comment on above: Performed By: #### L 501.080 #### [facility] [address] [place], [address] GFR/1.73 sq M.predicted among non-blacks MDRD (S/P/Bld) [Vol rate/Area] 24 mL/min/{1.73_m2} Low >60 [facility] Comment on above: Result Comment: mL/m in/1.73m2 CKD-EPI Creatinine Equation (2020) Performed By: #### L 501.080 #### [facility] [address] [place], [address] Glucose [Mass/Vol] 197 mg/dL High 70-99 [facility] Comment on above: Performed By: #### L 501.080 #### [facility] [address] [place], [address] Potassium [Moles/Vol] 4.1 mmol/L Normal 3.3-5.1 [facility] Comment on above: Performed By: #### L 501.080 #### [facility] [address] [place], [address] Sodium [Moles/Vol] 137 mmol/L Normal 133-145 [facility] Comment on above: Performed By: #### L 501.080 #### [facility] [address] [place], [address] Urea nitrogen [Mass/Vol] 42 mg/dL High 4-19 [facility] Comment on above: Performed By: #### L 501.080 #### [facility] [address] [place], [address] Basophil percentageOrdered B y: Brionna Noriegastewart on 01-05-2025 Basophils/100 WBC (Bld) 0.3 % 0-1 [facility] CBC W/Diff, Automatedon Absolute Lymph 2.43 X10 3/uL Normal 0.83-4.51 [facility] Comment on above: Performed By: #### L 501.080 #### [facility] [address] [place], [address] Absolute Neut 4.0 X10 3/uL Normal 2.0-7.7 [facility] Comment on above: Performed By: #### L 501.080 #### [facility] [address] [place], [address] Basophils/100 WBC (Bld) 0.3 % Normal 0-1 [facility] Comment on above: Performed By: #### L 501.080 #### [facility] [address] [place], [address] Eosinophils/100 WBC (Bld) 0.3 % Normal 0-5 [facility] Comment on above: Performed By: #### L 501.080 #### [facility] [address] [place], [address] Erythrocyte distribution width (RBC) [Ratio] 13.3 % Normal 11.6-14.6 [facility] Comment on above: Performed By: #### L 501.080 #### [facility] [address] [place], [address] Hematocrit (Bld) [Volume fraction] 35.8 % Low 37-47 [facility] Comment on above: Performed By: #### L 501.080 #### [facility] [address] [place], [address] Hemoglobin (Bld) [Mass/Vol] 11.6 g/dL Low 12.0-15.0 [facility] Comment on above: Performed By: #### L 501.080 #### [facility] [address] [place], [address] IG% 0.300 Normal 0.0-0.9 [facility] Comment on above: Result Comment: IG% - Immature Granulocytes (promyelocytes, myelocytes and metamyelocytes) > 1% indicates that a LEFT SHIFT is Present. Performed By: #### L 501.080 #### [facility] [address] [place], [address] Lymphocytes/100 WBC (Bld) 35.0 % Normal 19-41 [facility] Comment on above: Performed By: #### L 501.080 #### [facility] [address] [place], [address] MCH (RBC) [Entitic mass] 29.6 pg Normal 27.0-32.0 [facility] Comment on above: Performed By: #### L 501.080 #### [facility] [address] [place], [address] MCHC (RBC) [Mass/Vol] 32.4 g/dL Normal 32-36 [facility] Comment on above: Performed By: #### L 501.080 #### [facility] [address] [place], [address] MCV (RBC) [Entitic vol] 91.3 fL Normal 81-99 [facility] Comment on above: Performed By: #### L 501.080 #### [facility] [address] [place], [address] Monocytes/100 WBC (Bld) 7.2 % Normal 0-10 [facility] Comment on above: Performed By: #### L 501.080 #### [facility] [address] [place], [address] Neutrophils/100 WBC (Bld) 56.9 % Normal 47-70 [facility] Comment on above: Performed By: #### L 501.080 #### [facility] [address] [place], [address] Nucleated RBC (Bld) [#/Vol] 0 10*3/uL Normal 0-5 [facility] Comment on above: Performed By: #### L 501.080 #### [facility] [address] [place], [address] Platelet mean volume (Bld) [Entitic vol] 11.1 fL Normal 6.2-12.0 [facility] Comment on above: Performed By: #### L 501.080 #### [facility] [address] [place], [address] Platelets (Bld) [#/Vol] 228 10*3/uL Normal 150-450 [facility] Comment on above: Performed By: #### L 501.080 #### [facility] [address] [place], [address] RBC (Bld) [#/Vol] 3.92 10*6/uL Low 4.2-5.4 [place] Comment on above: Performed By: #### L 501.080 #### [facility] [address] [place], [address] RDW SD 44.8 fl High 35.1-43.9 [facility] Comment on above: Performed By: #### L 501.080 #### [facility] [address] [place], [address] WBC (Bld) [#/Vol] 6.9 10*3/uL Normal 4.4-11.0 [facility] Comment on above: Performed By: #### L 501.080 #### [facility] [address] [place], [address] Carbon dioxide measurementOr dered By: Brionna Malin on 01-05-2025 CO2 [Moles/Vol] 18.9 mmol/L Low 22.0-29.0 [facility] Chest PA and Lateralon 01-05 Chest PA and Lateral [facility] [address] [place] [address] Chest PA and Lateral MR#: [id number] Acct: [id number] Name: CICI WOODWARD Rep #: [id number] : 1935 F 89 From: Isidro Lynn MD PCP: Dr. Anju Pearce MD Status: REG ER Study: Chest PA and Lateral Date of Exam: 01/05/25 Exam# [id number] Ordering Dr: Brionna Malin EXAM: XR Chest, 2 Views CLINICAL INDICATION: TECHNIQUE: Frontal and lateral views of the chest. COMPARISON: No relevant prior studies available. FINDINGS: LUNGS AND PLEURAL SPACES: Unremarkable. No consolidation. No pneumothorax. HEART: Unremarkable. No cardiomegaly. MEDIASTINUM: Unremarkable. Normal mediastinal contour. BONES/JOINTS: Unremarkable. No acute fracture. RAD/Chest PA and Lateral IMPRESSION: No acute cardiopulmonary process. Reading [facility] CC: Dr. Anju Pearce MD; RANDY Hinds Assistant Women'S Tennis Coach: Signed Normal [facility] Chloride measurementOrdered By: Brionna Malin on 01-05-2025 Chloride [Moles/Vol] 105 mmol/L 96-108 [facility] Emergency Department Summary on 01-05-2025 Emergency Department Summary [facility] Medical Records Department [address] [place] [address] Emergency Department Summary 01/05/25 MR#: [id number] Acct: [id number] Name: CICI WOODWARD Rep #: [id number] : 1935 89 From: Igor Wells DO PCP: Dr. Anju Pearce MD Status:[facility] ER Location: ED Patient was seen and examined with physician acquisitions assistant Brionna All components of the history [...] [facility]. She is encouraged return with [...] denies chest pain or shortness of breath. [facility] Medical History Atherosclerosis of coronary artery of [place] heart without angina pectoris Bilateral renal cysts [...] eye drops (more content not included)... Normal [facility] Eosinophil percentageOrdered By: Brionna Malin on 01-05-2025 Eosinophils/100 WBC (Bld) 0.3 % 0-5 [facility] Erythrocyte distribution wid th ratioOrdered By: Brionna Malin on 01-05-2025 Erythrocyte distribution width (RBC) [Ratio] 13.3 % 11.6-14.6 [facility] Erythrocyte distribution wid th standard deviationOrdered By: Brionna Malin on 01-05-2025 Erythrocyte distribution width (RBC) [Ratio] 44.8 fl High 35.1-43.9 [facility] Glomerular filtration rate ( GFR) estimation/1.73 sq m using serum, plasma, or whole bOrdered By: Brionna Malin on 01-05-2025 GFR/1.73 sq M.predicted among non-blacks MDRD (S/P/Bld) [Vol rate/Area] 24 mL/min/{1.73_m2} Low >60 [facility] Comment on above: mL/min/1.73m2 CKD-EP I Creatinine Equation (2020) Hematocrit Auto (Bld) [Volum e fraction]Ordered By: Brionna Malin on 01-05-2025 Hematocrit (Bld) [Volume fraction] 35.8 % Low 37-47 [facility] Hemoglobin measurementOrdere d By: Brionna Malin on 01-05-2025 Hemoglobin (Bld) [Mass/Vol] 11.6 g/dL Low 12.0-15.0 [facility] Immature granulocytes/100 WB C Auto (Bld)Ordered By: Brionna Malin on 01-05-2025 Immature granulocytes/100 WBC (Bld) 0.300 % 0.0-0.9 [facility] Comment on above: IG% - Immature Granu locytes (promyelocytes, myelocytes and metamyelocytes) > 1% indicates that a LEFT SHIFT is Present. Influenza virus A and B and SARS-CoV-2 (COVID-19) and Respiratory syncytial virus RNAOrdered By: Brionna Malin on 01-05-2025 SARS-CoV-2 (COVID-19) RNA MARIS+probe Ql (Unsp spec) Influenzae A Abnormal [facility] M100.678on 01-05-2025 SARS-CoV-2 (COVID-19) Ab IA [...] Negative RSV PCR Negative INFLUENZAE A Normal [facility] Comment on above: Performed By: #### L 501.080 #### [facility] [address] [place] [address], [address] MCV (mean corpuscular volume ) determinationOrdered By: Brionna Malin on 01-05-2025 MCV (RBC) [Entitic vol] 91.3 fL 81-99 [facility] Mean corpuscular hemoglobin (MCH) determinationOrdered By: Brionna Malin on 01-05-2025 MCH (RBC) [Entitic mass] 29.6 pg 27.0-32.0 [facility] Mean corpuscular hemoglobin concentration (MCHC) determinationOrdered By: Brionna Malin on 01-05-2025 MCHC (RBC) [Mass/Vol] 32.4 g/dL 32-36 [facility] Mean platelet volume determi nationOrdered By: Brionna Malin on 01-05-2025 Platelet mean volume (Bld) [Entitic vol] 11.1 fL 6.2-12.0 [facility] Monocyte percentageOrdered B y: Brionna Malin on 01-05-2025 Monocytes/100 WBC (Bld) 7.2 % 0-10 [facility] Neutrophil percentageOrdered By: Brionna Malin on 01-05-2025 Neutrophils/100 WBC (Bld) 56.9 % 47-70 [facility] Nucleated red blood cell per centageOrdered By: Brionna Malin on 01-05-2025 Nucleated RBC/100 WBC (Bld) [Ratio] 0 % 0-5 [facility] Platelet countOrdered By: Martita Malin on 01-05-2025 Platelets (Bld) [#/Vol] 228 10*3/uL 150-450 [facility] RBC Auto (Bld) [#/Vol]Ordere d By: Brionna Malin on 01-05-2025 RBC (Bld) [#/Vol] 3.92 10*6/uL Low 4.2-5.4 [place] Serum creatinine measurement (mass/volume)Ordered By: Brionna Malin on 01-05-2025 Creatinine [Mass/Vol] 1.95 mg/dL High 0.70-1.20 [facility] Serum glucose measurement (m ass/volume)Ordered By: Brionna Malin on 01-05-2025 Glucose [Mass/Vol] 197 mg/dL High 70-99 [facility] Serum or plasma anion gap de termination (moles/volume)Ordered By: Brionna Malin on 01-05-2025 Anion gap [Moles/Vol] 13 mmol/L 5-15 [facility] Serum or plasma calcium anita urement (mass/volume)Ordered By: Brionna Malin on 01-05-2025 Calcium [Mass/Vol] 9.1 mg/dL 7.6-11.0 [facility] Serum or plasma potassium me asurementOrdered By: Brionna Dea on 01-05-2025 Potassium [Moles/Vol] 4.1 mmol/L 3.3-5.1 [facility] Serum or plasma sodium measu rement (moles/volume)Ordered By: Brionna Malin on 01-05-2025 Sodium [Moles/Vol] 137 mmol/L 133-145 [facility] Serum or plasma urea nitroge n measurement (mass/volume)Ordered By: Brionnarach Malin on 01-05-2025 Urea nitrogen [Mass/Vol] 42 mg/dL High 4-19 [facility] White blood cell (WBC) count Ordered By: Brionnarach Malin on 01-05-2025 WBC (Bld) [#/Vol] 6.9 10*3/uL 4.4-11.0 [facility] Echo Completeon 10-23-2024 Echo Complete [facility] [address] [place] [address] Echo Complete 10/23/24 1250 MR#: [id number] Acct: [id number] Name: CICI WOODWARD Rep #: [id number] : 1935 89 From: Harris Kessler MD [...] Dictated: 10/23/24 1250 Date Transcribed: 10/23/24 1402 Assistant Women'S Tennis Coach: Signed Normal [facility] Cardiology Visit Reporton Cardiology Visit Report [facility] [address] [place] [address] OFFICE VISIT Date of Service: 09/22/24 MR#: [id number] Acct: [id number] Name: CICI WOODWARD Rep #: [id number] : 1935 Provider: RANDY Silverio Age/Sex: 89/F Location: [facility] Status: Signed HPI HPI History of Present Illness Details: Cici Woodward is an 89-year-old female that presents here today for a cardiovascular follow-up. She was last to see us in the office in 2001. She has a history of coronary artery disease requiring bypass surgery. On January 09, 2020 she underwent a four-vessel bypass at [facility]. (GHOSH to diagonal sequenced to LAD, SVG to OM sequenced to RPL). Patient was found to have an EF of around 30% when she had presented with SD. This has since resolved. She has CKD and her lisinopril was discontinued due to rise in creatinine. She does not have any worsening SOB, orthopnea. She does not have any problems with her ADLS. She does go to [employer]. She does go three times a week for 30 minutes, She does not have any chest pain. She does not palpitations. She does not have any edema. Primary care doctor was concerned about elevated BT BILLET STRAIGHTENER which prompted office visit today. Intake Vital Signs 10/03/22 13:54 09/22/24 14:43 09/22/24 14:44 Height 5 ft 3 in 5 ft 3 in 5 ft 3 in Weight: 169 lb BMI 29.9 BP 143/67 H Blood Pressure Location Lt brachial Position Sitting Respiration 18 Pulse 74 Pulse Source Monitor Pulse Oximetry (%) 97 Intake Visit Reasons: OVERDUE FOR F/U/LAST SEEN 11/26 Steel Chipper Required: No Is patient in pain?: No [...] Medical History Atherosclerosis of coronary artery of [place] heart without angina pectoris Bilateral renal cysts [...] None Mus (more content not included)... Normal [facility] Basic metabolic 2000 panelon 09-12-2024 Anion gap [Moles/Vol] 14 mmol/L Normal 8-15 [facility] Comment on above: Order Comment: Speci men Type: BLOOD SPECIMENOrdering Facility: [facility] Address: [address] [place] [address] Performed By: #### 2 4321-2, 58153-9 ####[facility] LABCLIA [id number] [place] [address] [place] Calcium [Mass/Vol] 9.4 mg/dL Normal 8.5-10.2 [facility] Comment on above: Order Comment: Speci men Type: BLOOD SPECIMENOrdering Facility: [facility] Address: [address] [place] [address] Performed By: #### 2 4321-2, 04100-0 ####[facility] LABCLIA [id number] [place] [address] [place] Chloride [Moles/Vol] 106 mmol/L Normal 98-107 [facility] Comment on above: Order Comment: Speci men Type: BLOOD SPECIMENOrdering Facility: [facility] Address: [address] [place] [address] Performed By: #### 2 4321-2, 59833-1 ####[facility] LABCLIA [id number] [place] [address] [place] CO2 [Moles/Vol] 18 mmol/L Low 22-30 [facility] Comment on above: Order Comment: Speci men Type: BLOOD SPECIMENOrdering Facility: [facility] Address: [address] [place] [address] Performed By: #### 2 4321-2, 22198-8 ####[facility] LABIA [id number] [place] [address] [place] Creatinine [Mass/Vol] 2.20 mg/dL High 0.58-0.96 [facility] Comment on above: Order Comment: Speci men Type: BLOOD SPECIMENOrdering Facility: [facility] Address: [address] [place] [address] Performed By: #### 2 4321-2, 31921-0 ####[facility] LABIA [id number] [place] [address] [place] Creatinine and Glomerular filtration rate.predicted panel (S/P/Bld) 21 mL/min/1.73m??? Low >=60 [facility] Comment on above: Order Comment: Speci men Type: BLOOD SPECIMENOrdering Facility: [facility] Address: [address] [place] [address] Result Comment: Kathie mated Glomerular Filtration Rate [...] actual GFR. Performed By: #### 2 4321-2, 30168-4 ####[facility] LABCLIA [id number] [place] [address] [place] Glucose [Mass/Vol] 162 mg/dL High 74-99 [facility] Comment on above: Order Comment: Speci men Type: BLOOD SPECIMENOrdering Facility: [facility] Address: [address] [place] [address] Result Comment: The [place] Diabetes Association (ADA) provides guidance for cutoff [...] Standards of Medical Care in Diabetes 2016, [place] Diabetes Association. Diabetes Care. 2016.39(Suppl 1). Performed By: #### 2 4321-2, 70437-3 ####[facility] LABIA [id number] [place] [address] [place] Potassium [Moles/Vol] 5.5 mmol/L High 3.7-5.1 [facility] Comment on above: Order Comment: Speci men Type: BLOOD SPECIMENOrdering Facility: [facility] Address: [address] [place] [address] Performed By: #### 2 4321-2, 10215-2 ####[facility] LABCLIA [id number] [place] [address] [place] Sodium [Moles/Vol] 138 mmol/L Normal 136-144 [facility] Comment on above: Order Comment: Speci men Type: BLOOD SPECIMENOrdering Facility: [facility] Address: [address] [place] [address] Performed By: #### 2 4321-2, 32611-9 ####[facility] LABCLIA [id number] [place] [address] [place] Urea nitrogen [Mass/Vol] 53 mg/dL High 7-21 [facility] Comment on above: Order Comment: Speci men Type: BLOOD SPECIMENOrdering Facility: [facility] Address: [address] [place] [address] Performed By: #### 2 4321-2, 76685-3 ####[facility] LABCLIA [id number] [place] [address] [place] CNOVon 09-12-2024 CNOV Office Visit (INTMWS ) CICI WOODWARD I ([id number]) 1935 F Date Time Provider Department 09/12/24 1:00 PM ISHMAEL DAVIS INTMWS During your visit today, we recorded the following information about you: Pulse Respiration Blood pressure Weight 80/minute 16/minute 150/67 78 kg Ishmael Davis APRN.BARBED WIRE MACHINE OPERATOR 09/18/2024 7:49 AM Addendum SUBJECTIVE: Covid-19 Vaccine( [...] History of CAD s/p CAB, followed by [facility]. Currently without symptomatic complaints. Reports [...] 6 Units (more content not included)... Normal [facility] HbA1c (Bld)on 09-12-2024 Average glucose Estimated from glycated hemoglobin (Bld) [Mass/Vol] 174 mg/dL Normal [facility] Comment on above: Order Comment: Speci men Type: BLOOD SPECIMEN [facility] Address: [address] [place] [address] Result Comment: eAG: (Estimated average glucose) is a calculated value from HgbA1c and is consumer sales representative of the average blood glucose level in the last 2-3 month period. Performed By: #### 5 5454-3 #### [facility] LAB CLIA [id number] [address] [place] [address] [place] HbA1c (Bld) [Mass fraction] 7.7 % High 4.3-5.6 [facility] Comment on above: Order Comment: Luis Armando schaffer Type: BLOOD SPECIMEN [facility] Address: [address] [place] [address] Result Comment: [place] Diabetes Association guidelines indicate that patients with HgbA1c in the range 5.7-6.4% are at increased risk for development of diabetes, and intervention by lifestyle modification may be beneficial. HgbA1c greater or equal to 6.5% is considered diagnostic of diabetes. Performed By: #### 5 5454-3 #### [facility] CLIA [id number] [address] [place] [address] [place] NT-proBNP [facility] 09-12 Natriuretic peptide.B prohormone N-Terminal [Mass/Vol] 3739 pg/mL High <450 [facility] Comment on above: Order Comment: Luis Armando schaffer Type: BLOOD SPECIMENOrdering Facility: [facility] Address: [address] [place] [address] Performed By: #### 2 4321-2, 17799-1 ####[facility] LABCLIA [id number] [place] [address] [place] ALBUMIN/CREAT RATIO RND URon 08-25-2023 Albumin DL <= 20 mg/L (U) [Mass/Vol] 2962.6 mg/L [facility] Albumin/Creatinine (U) [Mass ratio] 2190 mg/g High <30 mg/g [facility] Creatinine (U) [Mass/Vol] 135.3 mg/dL 20.0 - 300.0 mg/dL [facility] VITAMIN D 25 HYDROXYon 08-25 25-hydroxyvitamin D3 [Mass/Vol] 38.2 ng/mL 31.0 - 80.0 ng/mL [facility] CBC panel Auto (Bld)on 08-24 Erythrocyte distribution width (RBC) [Ratio] 13.8 % 11.5 - 15.0 % [facility] Hematocrit (Bld) [Volume fraction] 38.4 % 36.0 - 46.0 % [facility] Hemoglobin (Bld) [Mass/Vol] 12.4 g/dL 11.5 - 15.5 g/dL [facility] MCH (RBC) [Entitic mass] 30.1 pg 26.0 - 34.0 pg [facility] MCHC (RBC) [Mass/Vol] 32.3 g/dL 30.5 - 36.0 g/dL [facility] MCV (RBC) [Entitic vol] 93.2 fL 80.0 - 100.0 fL [facility] Nucleated RBC (Bld) [#/Vol] <0.01 k/uL [facility] Platelet mean volume (Bld) [Entitic vol] 11.0 fL 9.0 - 12.7 fL [facility] Platelets (Bld) [#/Vol] 263 10*3/uL 150 - 400 k/uL [facility] RBC (Bld) [#/Vol] 4.12 10*6/uL 3.90 - 5.2 0 m/uL [facility] WBC (Bld) [#/Vol] 10.64 10*3/uL 3.70 - 11 .00 k/uL [facility] Comprehensive metabolic 2000 panelon 08-24-2023 Albumin [Mass/Vol] 4.0 g/dL 3.9 - 4.9 g/dL [facility] ALP [Catalytic activity/Vol] 99 U/L 34 - 123 U/L [facility] ALT [Catalytic activity/Vol] 15 U/L 7 - 38 U/L [facility] Anion gap [Moles/Vol] 13 mmol/L 9 - 18 mmol/L [facility] AST [Catalytic activity/Vol] 16 U/L 13 - 35 U/L [facility] Bilirubin [Mass/Vol] 0.2 mg/dL 0.2 - 1 .3 mg/dL [facility] Calcium [Mass/Vol] 9.1 mg/dL 8.5 - 10. 2 mg/dL [facility] Chloride [Moles/Vol] 104 mmol/L 97 - 10 5 mmol/L [facility] CO2 [Moles/Vol] 20 mmol/L Low 22 - 30 mmol/L [facility] Creatinine [Mass/Vol] 1.75 mg/dL High 0.58 - 0.96 mg/dL [facility] Estimated Glomerular Filtration Rate 28 mL/min/1.73m Low >=60 mL/min/1.73m [facility] Glucose [Mass/Vol] 158 mg/dL High 74 - 99 mg/dL [facility] Potassium [Moles/Vol] 4.1 mmol/L 3.7 - 5.1 mmol/L [facility] Protein [Mass/Vol] 6.4 g/dL 6.3 - 8.0 g/dL [facility] Sodium [Moles/Vol] 137 mmol/L 136 - 144 mmol/L [facility] Urea nitrogen [Mass/Vol] 39 mg/dL High 7 - 21 mg/dL [facility] HbA1c (Bld)on 08-24-2023 Average glucose Estimated from glycated hemoglobin (Bld) [Mass/Vol] 177 mg/dL [facility] HbA1c (Bld) [Mass fraction] 7.8 % High 4.3 - 5.6 % [facility] URIC ACID BLOODon 08-24-2023 Urate [Mass/Vol] 6.5 mg/dL 2.5 - 6.6 mg/dL [facility] Basophil percentageon 2021 Creatinine [Mass/Vol] 1.3 mg/dL 0.55-1.02 [facility] Work Phone: Laboratory - Chemistry and C hemistry - challengeon 07-24-2022 GFR/1.73 sq M.predicted among non-blacks MDRD (S/P/Bld) [Vol rate/Area] 41.0000 mL/min/{1.73_m2} >60 [facility] Work Phone: Cytology report of Body flui d Cyto stainon 06-28-2022 Cytology report Cyto stain Doc (Body fld) SEE PATHOLOGY REPORT [facility] Work Phone: Comment on above: Specimen submitted t o Anatomical Pathology Department for testing. UA DIP, URINE (POC)on 2021 BILIRUBIN UA (POCT) Negative Negative [facility] CLARITY UA (POCT) Slightly Cloudy [facility] COLOR UA (POCT) Other [facility] GLUCOSE UA (POCT) 500 mg/dL Abnormal Negative mg/dL [facility] HEMOGLOBIN/BLOOD UA (POCT) Large Abnormal Negative [facility] KETONE UA (POCT) Negative Negative mg/dL [facility] LEUKOCYTES UA (POCT) Small Abnormal Negative [facility] NITRITE UA (POCT) Negative Negative [facility] PH UA (POCT) 6.0 4.5 - 8.0 [facility] Protein Ql (U) >=300 Abnormal Negative mg/dL [facility] SPECIFIC GRAVITY UA (POCT) 1.020 1.005 - 1.030 [facility] UROBILINOGEN UA (POCT) 0.2 E.U./dL Tricia l E.U./dL [facility] OBSOLETEon 04-25-2020 OBSOLETE Refill (AGVASACC) CICI WOODWARD I ([id number]) 1935 F Date Time Provider Department 04/25/20 MELISA REZA (GLOBAL CTO, MACHINE BOSS) AGVASACC During your visit today, we recorded the following information about you: Allergies As of Date: 04/25/2020 Noted Allergy Reaction BACTRIM (SULFAMETHOXAZOLE-TRIME TH*06/10/2008 11 - Vomiting CODEINE 08/31/2005 11 - Vomiting PREDNISONE 09/05/2012 11 - Vomiting STATINS ([id number] REDUCTAS*05/25/2009 5 - Intolerance ULTRAM (TRAMADOL HCL) [...] Status:Closed by YUNG MARSHALL CNP on 04/26/20 [facility] OBSOLETEon 03-24-2020 OBSOLETE Refill (AGVASACC) TRACECICI I ([id number]) 1935 F Date Time Provider Department 03/24/20 MELISA REZA (GLOBAL CTO, MACHINE BOSS) AGVASACC During your visit today, we recorded the following information about you: Allergies As of Date: 03/24/2020 Noted Allergy Reaction BACTRIM (SULFAMETHOXAZOLE-TRIME TH*06/10/2008 11 - Vomiting CODEINE 08/31/2005 11 - Vomiting PREDNISONE 09/05/2012 11 - Vomiting STATINS ([id number] REDUCTAS*05/25/2009 5 - Intolerance ULTRAM (TRAMADOL HCL) [...] Status:Closed by MELISA REZA CNP on 03/24/20 [facility] PROGRESSon 03-01-2020 PROGRESS HNO ID: [id number] Author: Philip (Alcira Das) DAYANA Lanier Service: ? Author Type: Nurse Practitioner Type: Progress Notes Filed: 03/01/2020 2:05 PM Note Text: [facility] [place] [facility] Resendiz Department of Cardiovascular Medicine Virtual [...] with RVR (no OAC) and discharged to [facility] acute rehabilitation and finally home. PAST [...] - S/P CABG x 3 01/09/2020 @ [facility] by Dr. Rivera - Stroke (cerebrum) ([facility]) 2013 - Type II or unspecified type diabetes mellitus without mention of complication, uncontrolled - Unspecified cardiovascular disease - Unspecified essential hypertension - Urgency of urination 2008 PAST SURGICAL HISTORY Procedure Laterality Date - ANGIOPLASTY 1988 - CABG (3) VEIN GRAFTS AND ARTERIAL GRAFT(S) 01/09/2020 @ [facility] by Dr. Rivera - COLONOSCOP W/ OR W/O RUST SPEC 08/29/07 - LAPAROSCOPIC CHOLEYCYSTECTOMY Cholecystectomy, lap [...] Drop in both eyes twice daily. - [place]-3 Fatty Acids 1,250 mg cap Take 1 [...] C/O: None Cardiology F/U: Dr Noel at [facility] Scheduled 03/03 Cardiac Rehab: Ordered previously and may begin when ready PHYSICAL EXAMINATION: VIDEO EXAM: (if completed, performed via video enabled technology) N/A for telephone visit ASSESSMENT: Ms. Woodward is a 84 year old female status post CABG ?4, recovering quite well. She is to follow-up with her clinical auditor as scheduled. She may begin cardiac rehabilitation [...] 01, 2020 1:02 PM Normal [facility] CNPHalle 02-20-2020 FERMIN Telephone (AGVASACC) CICI WOODWARD I ([id number]) 1935 F Date Time Provider Department 02/20/20 PHILIP LANIER (GLOBAL CTO, MACHINE BOSS) AGVASACC During your visit today, we recorded [...] Vomiting PREDNISONE 09/05/2012 11 - Vomiting STATINS ([id number] REDUCTAS*05/25/2009 5 - Intolerance ULTRAM (TRAMADOL HCL) [...] Encounter Status:Closed by GALILEA CALDERÓN on 02/20/20 [facility] PROGRESSon 02-02-2020 PROGRESS HNO ID: [id number] Author: Melisa (Alcira Das) DAYANA Reza Service: ? Author Type: Nurse Practitioner Type: Progress Notes Filed: 02/02/2020 2:44 PM Note Text: [facility] [place] [facility] Department of Cardiovascular Medicine Virtual [...] metoprolol. Patient was discharged on 01/16 to [facility] and was discharged home on 01/29. [...] - S/P CABG x 3 01/09/2020 @ [facility] by Dr. Rivera - Stroke (cerebrum) ([facility]) 2013 - Type II or unspecified type diabetes mellitus without mention of complication, uncontrolled - Unspecified cardiovascular disease - Unspecified essential hypertension - Urgency of urination 2008 PAST SURGICAL HISTORY Procedure Laterality Date - ANGIOPLASTY 1988 - CABG (3) VEIN GRAFTS AND ARTERIAL GRAFT(S) 01/09/2020 @ [facility] by Dr. Rivera - COLONOSCOP W/ [...] Drop in both eyes twice daily. - [place]-3 Fatty Acids 1,250 mg cap Take 1 [...] ICD10: N17.9 - stable -f/u with PCP [facility] follow up appointment: Dr. Noel in 4-6 [...] rehab at the next visit. Melisa Reza APRN.MACHINE BOSS February 02, 2020 1:53 PM Normal [facility] Basic Panelon 01-17-2020 Creatinine [Mass/Vol] 1.61 mg/dL High 0.51-0.95 [facility] Comment on above: Result Comment: Use of this assay is not recommended for patients undergoing treatment with phenindione, due to the potential for falsely depressed results. Performed By: #### G LMET #### [facility] [address] [place], [place] [address] Anion gap [Moles/Vol] 11 mmol/L Normal 8-16 [facility] Comment on above: Performed By: #### G LMET #### [address] [address] Calcium [Mass/Vol] 8.7 mg/dL Normal 8.5-10.1 [facility] Comment on above: Performed By: #### G LMET #### [address] [address] CO2 [Moles/Vol] 21 mmol/L Normal 21-32 [facility] Comment on above: Performed By: #### G LMET #### [address] [address] Glucose [Mass/Vol] 118 mg/dL High 70-99 [facility] Comment on above: Performed By: #### G LMET #### [address] [address] Urea nitrogen [Mass/Vol] 35 mg/dL High 7-18 [facility] Comment on above: Performed By: #### G LMET #### [facility] [address] [place], [place] [address] Chloride [Moles/Vol] 109 mmol/L High 98-107 [facility] Comment on above: Performed By: #### G LMET #### [address] [address] Potassium [Moles/Vol] 3.8 mmol/L Normal 3.5-5.1 [facility] Comment on above: Performed By: #### G LMET #### [address] [address] Sodium [Moles/Vol] 137 mmol/L Normal 136-145 [facility] Comment on above: Performed By: #### G LMET #### [address] [address] CONSULT PROGon 01-17-2020 CONSULT PROG HNO ID: [id number] Author: Eileen Jones Service: Endocrinology Author Type: Physician Type: Consult Progress Note Filed: 01/17/2020 8:14 AM Note Text: ENDOCRINOLOGY CONSULT PROGRESS NOTE SERVICE DATE: 01/17/2020 SERVICE TIME: 7:50 AM Subjective INTERVAL HPI: followed for DM type 2, on insulin MDI; can not tolerate metformin due to diarrhea; has CAD; s/p CABG. 01/09/2020 She was admitted to [facility] with chest pain and was found to have coronary artery disease. Patient has history of angioplasty 30 years ago. ?H/o CAD and remote SD now admitted with NSTEMI who is found [...] 8:14 AM PAGER: [phone] Normal [facility] Glucose Meteron 01-17-2020 Glucose [Mass/Vol] 147 mg/dL High 70-99 [facility] Comment on above: Result Comment: RN N OTIFIED Performed By: #### G LMET #### [place] [id number] MDRD GFRon 01-17-2020 GFR/1.73 sq M predicted among non-blacks MDRD (S/P/Bld) [Vol rate/Area] 30.57 mL/min/{1.73_m2} Normal >60mL/min/1. 73m2 [facility] Comment on above: Result Comment: If t he patient is , multiply the result by 1.210. Performed By: #### A PTT #### [place] [id number] PROGRESSon 01-17-2020 PROGRESS HNO ID: [id number] Author: Erwin Sewell Service: Nephrology Author Type: [...] to be anxious, depressed, or agitated. with orry noted Good urine Current Facility-Administered Medications Medication [...] weeks from renal standpoint Normal [facility] Basic Panelon 01-16-2020 Creatinine [Mass/Vol] 1.49 mg/dL High 0.51-0.95 [facility] Comment on above: Result Comment: Use of this assay is not recommended for patients undergoing treatment with phenindione, due to the potential for falsely depressed results. Performed By: #### G LMET #### [facility] [address] [place], [place] [address] Anion gap [Moles/Vol] 12 mmol/L Normal 8-16 [facility] Comment on above: Performed By: #### G LMET #### [facility] [address] [place], [place] [address] CO2 [Moles/Vol] 21 mmol/L Normal 21-32 [facility] Comment on above: Performed By: #### G LMET #### [facility] [address] [place], [place] [address] Glucose [Mass/Vol] 151 mg/dL High 70-99 [facility] Comment on above: Performed By: #### G LMET #### [facility] [address] [place], [place] [address] Urea nitrogen [Mass/Vol] 40 mg/dL High 7-18 [facility] Comment on above: Performed By: #### G LMET #### [facility] [address] [place], [place] [address] Calcium [Mass/Vol] 8.3 mg/dL Low 8.5-10.1 [facility] Comment on above: Performed By: #### G LMET #### [facility] [address] [place], [place] [address] Chloride [Moles/Vol] 110 mmol/L High 98-107 [facility] Comment on above: Performed By: #### G LMET #### [facility] [address] [place], [place] [address] Potassium [Moles/Vol] 4.2 mmol/L Normal 3.5-5.1 [facility] Comment on above: Performed By: #### G LMET #### [facility] [address] [place], [place] [address] Sodium [Moles/Vol] 139 mmol/L Normal 136-145 [facility] Comment on above: Performed By: #### G LMET #### [place] [address] CASE MANAGEMon 01-16-2020 CASE MANAGEM HNO ID: [id number] Author: Poly Strickland Service: Care Management Author Type: ? Type: Care Mgt Progress Note Filed: 01/16/2020 1:15 PM Note Text: CARE MANAGEMENT PROGRESS NOTE SERVICE DATE: 01/16/2020 SERVICE TIME: 1115 LOS: 13 days IMM Follow Up Copy Given: Yes Copy given to:: Patient Method: In Person SIGNATURE: Poly Strickland PATIENT NAME: Cici Woodward DATE: January 16, 2020 TIME: 1:15 PM PAGER/CONTACT #: [phone] [facility] CASE MANAGEM HNO ID: [id number] Author: Patience Ochoa) RITA Christy Service: Care Management Author Type: Registered Nurse Type: Care Mgt Progress Note Filed: 01/16/2020 12:41 PM Note Text: CARE MANAGEMENT DISCHARGE NOTE SERVICE DATE: 01/16/2020 SERVICE TIME: 12:39 PM LOS: 13 days Admission Date: 01/03/2020 DISCHARGE ARRANGEMENT (list agency and phone number) Discharge Arrangement: Acute rehab Provider Name: [facility] CAREGIVER ASSESSMENT: Caregiver is ready, willing and [...] 16, 2020 TIME: 12:39 PM PAGER/CONTACT #: [phone] [facility] CONSULT PROGon 01-16-2020 CONSULT PROG HNO ID: [id number] Author: Eileen Jones Service: Endocrinology Author Type: Physician Type: Consult Progress Note Filed: 01/16/2020 8:56 AM Note Text: ENDOCRINOLOGY CONSULT PROGRESS NOTE SERVICE DATE: 01/16/2020 SERVICE TIME: 8:30 AM Subjective INTERVAL HPI: followed for DM type 2, on insulin MDI; can not tolerate metformin due to diarrhea; has CAD; s/p CABG. 01/09/2020 She was admitted to [facility] with chest pain and was found to have coronary artery disease. Patient has history of angioplasty 30 years ago. ?H/o CAD and remote SD now admitted with NSTEMI who is found [...] January 16, 2020 TIME: 8:56 AM PAGER: [phone] [facility] NUTRITIONon 01-16-2020 NUTRITION HNO ID: [id number] Author: Kinjal Velarde Service: Nutrition Therapy Author [...] January 16, 2020 TIME: 11:16 AM PAGER: [phone] [facility] PROGRESSon 01-16-2020 PROGRESS HNO ID: [id number] Author: Yanet Rivera Service: Thoracic Surgery Author Type: Physician Type: Progress Notes Filed: 01/16/2020 5:00 PM Note Text: Patient seen this afternoon with BILLET STRAIGHTENER. Patient feeling better and hapyy and thankful. P-to [facility] acute rehab in AM Sunday per Philip. [facility] PROGRESS HNO ID: [id number] Author: Philip Lanier CNP Service: Cardiac Surgery Author Type: Nurse Practitioner Type: Progress Notes Filed: 01/16/2020 12:22 PM Note Text: CARDIOTHORACIC SURGERY POSTOP PROGRESS NOTE SERVICE DATE: 01/16/2020 SERVICE TIME: 12:17 PM Subjective S/P SURGERY: Procedure(s) (LRB): CABG x 4 (GHOSH ogzb-sj-qpns to diagonal, end-to-side to LAD in sequential fashion, SVG uarr-pm-jhcv to OM, and end-to-side of PLB of the RCA,?rEVH) DATE OF SURGERY: 01/09/2020 POSTOP DAY #7 LOS: 13 HPI:?Cici Woodward?is an 84-year-old woman from [facility] who transferred to [facility] with?NSTEMI and found to have multivessel coronary artery disease with decreased EF 30%. She is a history of CAD (status post angioplasty 30 years ago), DM, HTN, HLD, remote CVA with left-sided weakness, CK 80 (baseline creatinine 1.4-1.5). She denies any history of CHF. At presentation she complained of upper respiratory symptoms, and was treated with amoxicillin. At [facility] she was loaded with Brillinta. During the Brillinta wash, she underwent a complete workup at [facility]. She was found to have multiple [...] is underway, she wishes to discharge to [facility] acute rehabilitation. They have accepted, insurance prior authorization is not required. She is held over due to SHA on CKD with fluid volume overload. Today, she is doing quite well. Aware [facility] cannot take her to day. She [...] 80/ Cr > 1.5) -CHADS2 score: 6 -[id number] VASc score: 9 ? Volume overload ?- [...] and/or family verbalizes understanding. ? DISPO:??Acute Rehab. [facility] has Accepted, no insurance auth required. Discharge is done for Sunday. She is to leave Sat AM by private car. Tests/Labs Ordered: 1. None SIGNATURE: Philip Lanier APRN.CNP PATIENT NAME: Cici Woodward DATE: January 16, 2020 TIME: 12:16 PM PAGER/CONTACT #: [phone] E[place] [id number] Normal [facility] PROGRESS HNO ID: [id number] Author: Cesar Burroughs Service: Nephrology Author Type: Physician Type: Progress Notes Filed: 01/16/2020 7:27 PM Note Text: [facility] Nephrology Progress Note Subjective/ INTERVAL [...] weeks from renal standpoint Normal [facility] THERAPY NTon 01-16-2020 THERAPY NT HNO ID: [id number] Author: Franci (Pt) Judith Service: Physical Therapy Author Type: Physical Therapist Type: Therapy (PT/OT/Speech/Resp) Filed: 01/16/2020 5:13 PM Note Text: Physical Therapy Treatment SERVICE DATE: 01/16/2020 SERVICE TIME: 1602 to 1620 ROOM: [place] [address] Recommended Discharge Disposition: Acute Rehab Recommended Discharge [...] ess on feet Interventions Provided: Gait Training (04443) Gait Training (86837) Treatment Minutes: 18 1 unit Skilled Intervention(s): [...] 2020 TIME: 5:10 PM Normal [facility] THERAPY NT HNO ID: [id number] Author: Belgica Cantu/Flor Sue Service: Occupational Therapy Author Type: Occupational Therapist Type: Therapy (PT/OT/Speech/Resp) Filed: 01/16/2020 4:13 PM Note Text: Occupational Therapy Treatment SERVICE DATE: 01/16/2020 SERVICE TIME: 1532 to 1550 ROOM: [id number] Recommended Discharge Disposition: Acute Rehab Recommended Discharge [...] (ADL);General symptoms and signs-other Interventions Provided: Self Half-Way Management (23806) Self Half-Way Management (03241) Treatment Minutes: 18 1 unit Skilled Intervention(s): [...] 2020 TIME: 4:12 PM Normal [facility] Basic Panelon 01-15-2020 Creatinine [Mass/Vol] 1.62 mg/dL High 0.51-0.95 [facility] Comment on above: Result Comment: Use of this assay is not recommended for patients undergoing treatment with phenindione, due to the potential for falsely depressed results. Performed By: #### G LMET #### [address] [address] Anion gap [Moles/Vol] 11 mmol/L Normal 8-16 [facility] Comment on above: Performed By: #### G LMET #### [facility] [address] [place], [place] [address] CO2 [Moles/Vol] 23 mmol/L Normal 21-32 [facility] Comment on above: Performed By: #### G LMET #### [address] [address] Glucose [Mass/Vol] 300 mg/dL High 70-99 [facility] Comment on above: Performed By: #### G LMET #### [facility] [address] [place], [place] [address] Urea nitrogen [Mass/Vol] 41 mg/dL High 7-18 [facility] Comment on above: Performed By: #### G LMET #### [facility] [address] [place], [place] [address] Calcium [Mass/Vol] 8.3 mg/dL Low 8.5-10.1 [facility] Comment on above: Performed By: #### G LMET #### [facility] [address] [place], [place] [address] Chloride [Moles/Vol] 107 mmol/L Normal 98-107 [facility] Comment on above: Performed By: #### G LMET #### [facility] [address] [place], [place] [address] Potassium [Moles/Vol] 3.9 mmol/L Normal 3.5-5.1 [facility] Comment on above: Performed By: #### G LMET #### [facility] [address] [place], [place] [address] Sodium [Moles/Vol] 137 mmol/L Normal 136-145 [facility] Comment on above: Performed By: #### G LMET #### [facility] [address] [place], [place] [address] CONSULT PROGon 01-15-2020 CONSULT PROG HNO ID: [id number] Author: Eileen Jones Service: Endocrinology Author Type: Physician Type: Consult Progress Note Filed: 01/15/2020 8:35 AM Note Text: ENDOCRINOLOGY CONSULT PROGRESS NOTE SERVICE DATE: 01/15/2020 SERVICE TIME: 8:20 AM Subjective INTERVAL HPI: followed for DM type 2, on insulin MDI; can not tolerate metformin due to diarrhea; has CAD; s/p CABG. 01/09/2020 She was admitted to [facility] with chest pain and was found to have coronary artery disease. Patient has history of angioplasty 30 years ago. ?H/o CAD and remote SD now admitted with NSTEMI who is found [...] January 15, 2020 TIME: 8:35 AM PAGER: [phone] [facility] NUTRITIONon 01-15-2020 NUTRITION HNO ID: [id number] Author: Franci Silveira) FERCHO Gramajo Service: Nutrition Therapy Author Type: Registered Dietitian Type: Nutrition Filed: 01/15/2020 12:16 PM Note Text: NUTRITION THERAPY PROGRESS NOTE SERVICE DATE: 01/15/2020 SERVICE TIME: 12:05 Nutrition Assessment: Recommended Malnutrition Diagnosis: No Malnutrition Identified (01/07/20 1300 : [address] (R[address]) [address]) Estimated kilocalorie needs: 1553-9254 Calorie Calculation Method: 25-30 kcals/kg Estimated protein [...] January 15, 2020 TIME: 9:32 AM PAGER: [phone] Normal [facility] PROGRESSon 01-15-2020 PROGRESS HNO ID: [id number] Author: Yanet Rivera Service: Cardiac Surgery Author Type: Physician Type: Progress Notes Filed: 01/15/2020 3:10 PM Note Text: CARDIOTHORACIC SURGERY POSTOP PROGRESS NOTE SERVICE DATE: 01/15/2020 SERVICE TIME: 1:19 PM Subjective S/P SURGERY: Procedure(s) (LRB): CABG x 4 (GHOSH dfdm-cu-niyd to diagonal, end-to-side to LAD in sequential fashion, SVG ivcx-rl-bvle to OM, and end-to-side of PLB of the RCA, rEVH) DATE OF SURGERY: 01/09/2020 POSTOP DAY #6 LOS: 12 HPI: Cici Woodward is an 84-year-old woman from [facility] who transferred to [facility] with NSTEMI and found to have multivessel coronary artery disease with decreased EF 30%. She is a history of CAD (status post angioplasty 30 years ago), DM, HTN, HLD, remote CVA with left-sided weakness, CK 80 (baseline creatinine 1.4-1.5). She denies any history of CHF. At presentation she complained of upper respiratory symptoms, and was treated with amoxicillin. At [facility] she was loaded with Brillinta. During the Brillinta wash, she underwent a complete workup at [facility]. She was found to have multiple [...] is underway, she wishes to discharge to [facility] acute rehabilitation. They have accepted, insurance prior authorization is not required. She is held over due to SHA on CKD with fluid volume overload. Today, she is seen ambulating in the ashraf as well as resting in her chair. She reports she is feeling better today than she did yesterday and she continues to voice her plan is to go to [facility] acute rehabilitation. Objective Admission Weight: 73.3 [...] 80/ Cr > 1.5) -CHADS2 score: 6 -[id number] VASc score: 9 ? Volume overload ?- [...] family verbalizes understanding. ? DISPO: Acute Rehab. [facility] has Accepted, no insurance auth required. May discharge when medically ready, likely 24 hours. Tests/Labs Ordered: 1. BMP SIGNATURE: Philip Lanier APRN.CNP PATIENT NAME: Cici Woodward DATE: January 15, 2020 TIME: 1:19 PM PAGER/CONTACT #: [phone] ETX [id number] Patient seen this AM with BILLET STRAIGHTENER and data and careplan discussed with patient. P-cont diuresis today with discharge planning for AM to [facility] acute rehab/transitional unit. Normal [facility] PROGRESS HNO ID: [id number] Author: Cesar Burroughs Service: Nephrology Author Type: [...] for heart failure No need for the GARNISHMENT SPECIALIST We will follow Avoid all renal toxins Dose meds for GFR < 30 Yfn Jennings APRN.MACHINE BOSS PRC team Patient seen and independently examined and assessed.The Nurse practitioner note was reviewed and exam noted. I agree with his assessment and recommendations. Any variance is noted as below. Normal [facility] THERAPY NTon 01-15-2020 THERAPY NT HNO ID: [id number] Author: Franci (Hardeep Wong Service: Physical Therapy Author Type: Physical Therapist Type: Therapy (PT/OT/Speech/Resp) Filed: 01/15/2020 2:22 PM Note Text: Physical Therapy Treatment SERVICE DATE: 01/15/2020 SERVICE TIME: 1103 to 1130 ROOM: [place] [address] Recommended Discharge Disposition: Acute Rehab Recommended Discharge [...] ess on feet Interventions Provided: Therapeutic Activity (92202);Gait Training (73657) Therapeutic Activity (46567) Treatment Minutes: 10 1 unit Skilled Intervention(s): [...] assist and demonstrates fair understanding. Gait Training (60093) Treatment Minutes: 15 1 unit Skilled Intervention(s): [...] 2020 TIME: 2:18 PM Normal [facility] XR CHEST 2V FRONTAL/LATon XR CHEST [...] vascular sheath. No measurable pneumothorax is seen Assistant Women'S Tennis Coach: KURT Transcribe Date/Time: Jan 15 2020 7:51A Dictated by : MARCO VICENTE MD This examination was interpreted and the report reviewed and electronically signed by: MARCO VICENTE MD on Jan 15 2020 7:53AM EST Normal [facility] Basic Panelon 01-14-2020 Creatinine [Mass/Vol] 1.82 mg/dL High 0.51-0.95 [facility] Comment on above: Result Comment: Use of this assay is not recommended for patients undergoing treatment with phenindione, due to the potential for falsely depressed results. Performed By: #### G LMET #### [place] [address] Anion gap [Moles/Vol] 11 mmol/L Normal 8-16 [facility] Comment on above: Performed By: #### G LMET #### [facility] [address] [place], [place] [address] CO2 [Moles/Vol] 20 mmol/L Low 21-32 [facility] Comment on above: Performed By: #### G LMET #### [facility] [address] [place], [place] [address] Urea nitrogen [Mass/Vol] 47 mg/dL High 7-18 [facility] Comment on above: Performed By: #### G LMET #### [facility] [address] [place], [place] [address] Calcium [Mass/Vol] 8.3 mg/dL Low 8.5-10.1 [facility] Comment on above: Performed By: #### G LMET #### [facility] [address] [place], [place] [address] Glucose [Mass/Vol] 124 mg/dL High 70-99 [facility] Comment on above: Performed By: #### G LMET #### [facility] [address] [place], [place] [address] Chloride [Moles/Vol] 111 mmol/L High 98-107 [facility] Comment on above: Performed By: #### G LMET #### [facility] [address] [place], [place] [address] Potassium [Moles/Vol] 4.3 mmol/L Normal 3.5-5.1 [facility] Comment on above: Performed By: #### G LMET #### [address] [address] Sodium [Moles/Vol] 138 mmol/L Normal 136-145 [facility] Comment on above: Performed By: #### G LMET #### [facility] [address] [place], [place] [address] CONSULT PROGon 01-14-2020 CONSULT PROG HNO ID: [id number] Author: Eileen Jones Service: Endocrinology Author Type: Physician Type: Consult Progress Note Filed: 01/14/2020 1:42 PM Note Text: ENDOCRINOLOGY CONSULT PROGRESS NOTE SERVICE DATE: 01/14/2020 SERVICE TIME: 1:30 PM Subjective INTERVAL HPI: followed for DM type 2, on insulin MDI; can not tolerate metformin due to diarrhea; has CAD; s/p CABG. 01/09/2020 She was admitted to [facility] with chest pain and was found to have coronary artery disease. Patient has history of angioplasty 30 years ago. ?H/o CAD and remote SD now admitted with NSTEMI who is found [...] 1:42 PM PAGER: [phone] Normal [facility] Hemogramon 01-14-2020 Erythrocyte distribution width (RBC) [Ratio] 15.1 % High 11.7-14.4 [facility] Comment on above: Performed By: #### G LMET #### [address] [address] Hematocrit (Bld) [Volume fraction] 31.8 % Low 34.1-44.9 [facility] Comment on above: Performed By: #### G LMET #### [address] [address] Hemoglobin (Bld) [Mass/Vol] 10.1 g/dL Low 11.2-15.7 [facility] Comment on above: Performed By: #### G LMET #### [address] [address] MCH (RBC) [Entitic mass] 29.9 pg Normal 25.6-32.2 [facility] Comment on above: Performed By: #### G LMET #### [facility] [address] [place] [address] MCHC (RBC) [Mass/Vol] 31.8 % Normal 31.6-34.8 [facility] Comment on above: Performed By: #### G LMET #### [facility] [address] [place] [address] MCV (RBC) [Entitic vol] 94.1 fL Normal 79.4-94.8 [facility] Comment on above: Performed By: #### G LMET #### [facility] [address] [place] [address] Platelet mean volume (Bld) [Entitic vol] 11.8 fL Normal 9.4-12.3 [facility] Comment on above: Performed By: #### G LMET #### [facility] [address] [place] [address] Platelets (Bld) [#/Vol] 209 thou/cmm Normal 182-369 [facility] Comment on above: Performed By: #### G LMET #### [facility] [address] [place] [address] RBC (Bld) [#/Vol] 3.38 mil/cmm Low 3.93-5.22 [facility] Comment on above: Performed By: #### G LMET #### [facility] [address] [place] [address] RDW SD 51.5 fl High 36.4-46.3 [facility] Comment on above: Performed By: #### G LMET #### [facility] [address] [place] [address] WBC (Bld) [#/Vol] 11.07 thou/cmm High 3.98-10.04 [facility] Comment on above: Performed By: #### G LMET #### [facility] [address] [place] [address] PROGRESSon 01-14-2020 PROGRESS HNO ID: [id number] Author: Cesar Burroughs Service: Nephrology Author Type: [...] with oral bio-availability No need for the GARNISHMENT SPECIALIST We will follow Avoid all renal toxins Dose meds for GFR < 30 Normal [facility] PROGRESS HNO ID: [id number] Author: Yanet Rivera Service: Cardiac Surgery Author Type: Physician Type: Progress Notes Filed: 01/14/2020 3:59 PM Note Text: CARDIOTHORACIC SURGERY POSTOP PROGRESS NOTE SERVICE DATE: 01/14/2020 SERVICE TIME: 8:57 AM Subjective S/P SURGERY: Procedure(s) (LRB): CABG x 4 (GHOSH ypqd-om-inhv to diagonal, end-to-side to LAD in sequential fashion, SVG jhtj-kx-wfxb to OM, and end-to-side of PLB of the RCA, rEVH) DATE OF SURGERY: 01/09/2020 POSTOP DAY #5 LOS: 11 HPI: Cici Woodward is an 84-year-old woman from [facility] who transferred to [facility] with NSTEMI and found to have multivessel coronary artery disease with decreased EF 30%. She is a history of CAD (status post angioplasty 30 years ago), DM, HTN, HLD, remote CVA with left-sided weakness, CK 80 (baseline creatinine 1.4-1.5). She denies any history of CHF. At presentation she complained of upper respiratory symptoms, and was treated with amoxicillin. At [facility] she was loaded with Brillinta. During the Brillinta wash, she underwent a complete workup at [facility]. She was found to have multiple [...] is underway, she wishes to discharge to [facility] acute rehabilitation. They have accepted, insurance prior authorization is not required. Today,She reports she is doing well. She is ready to move along to the next phase of care. He plan is to go to [facility] acute Objective Admission Weight: 73.3 kg [...] 80/ Cr > 1.5) -CHADS2 score: 6 -[id number] VASc score: 9 Volume overload ?- 81.5/73.3 [...] and/or family verbalizes understanding. DISPO: Acute Rehab. [facility] has Accepted, no insurance auth required. May discharge when medically ready, likely 24-48 hours. Tests/Labs Ordered: 1. Chest X-ray 2. BMP SIGNATURE: Philip Lanier APRN.MACHINE BOSS PATIENT NAME: Cici Woodward DATE: January 14, 2020 TIME: 8:53 AM PAGER/CONTACT #: [phone] ETX [id number] Patient seen with BILLET STRAIGHTENER this afternoon. Labs, data, and careplan reviewed and d/w patient as well. P-as ordered. Diuresis and placement for acute rehab. Normal [facility] PROGRESS HNO ID: [id number] Author: Gladys hBakta Service: Pulmonary Disease Author Type: Nurse Practitioner [...] 14, 2020 2:25 PM PULMONARY PROGRESS NOTE [facility] SERVICE DATE: January 14, 2020 [...] lidocaine patch - REMOVE OTHER AT BEDTIME Vish Shin) Ruhlin And - lidocaine - VERIFY [...] worse. CXr 01/12/2020 Status post removal of [place]-Veto catheter. ?Left-sided chest tube, mediastinal drain, and [...] 14, 2020 TIME: 10:17 AM PAGER/CONTACT #: [phone] Normal [facility] Basic Panelon 01-13-2020 Urea nitrogen [Mass/Vol] 49 mg/dL High 7-18 [facility] Comment on above: Performed By: #### G LMET #### [facility] [address] [place], [place] [address] Creatinine [Mass/Vol] 1.93 mg/dL High 0.51-0.95 [facility] Comment on above: Result Comment: Use of this assay is not recommended for patients undergoing treatment with phenindione, due to the potential for falsely depressed results. Performed By: #### G LMET #### [address] [address] Anion gap [Moles/Vol] 11 mmol/L Normal 8-16 [facility] Comment on above: Performed By: #### G LMET #### [address] [address] CO2 [Moles/Vol] 22 mmol/L Normal 21-32 [facility] Comment on above: Performed By: #### G LMET #### [facility] [address] [place], [place] [address] Glucose [Mass/Vol] 134 mg/dL High 70-99 [facility] Comment on above: Performed By: #### G LMET #### [facility] [address] [place], [place] [address] Calcium [Mass/Vol] 8.3 mg/dL Low 8.5-10.1 [facility] Comment on above: Performed By: #### G LMET #### [address] [address] Chloride [Moles/Vol] 107 mmol/L Normal 98-107 [facility] Comment on above: Performed By: #### G LMET #### [facility] [address] [place], [place] [address] Potassium [Moles/Vol] 4.3 mmol/L Normal 3.5-5.1 [facility] Comment on above: Performed By: #### G LMET #### [facility] [address] [place], [place] [address] Sodium [Moles/Vol] 136 mmol/L Normal 136-145 [facility] Comment on above: Performed By: #### G LMET #### [facility] [address] [place], [place] [address] CASE MANAGEMon 01-13-2020 CASE MANAGEM HNO ID: [id number] Author: Kaylee (Rn) RITA Mcnamara Service: ? Author Type: Registered Nurse Type: Care Mgt Progress Note Filed: 01/13/2020 10:01 AM Note Text: CARE MANAGEMENT PROGRESS NOTE SERVICE DATE: 01/13/2020 SERVICE TIME: 10:00 AM LOS: 10 days Needs Prior to Discharge: Discharge Transportation [facility] acute rehab has accepted. No precert needed. SIGNATURE: Kaylee Mcnamara RN PATIENT NAME: Cici Woodward DATE: January 13, 2020 TIME: 10:00 AM PAGER/CONTACT #: [phone] Normal [facility] CONSULTon 01-13-2020 CONSULT HNO ID: [id number] Author: Cesar Burroughs Service: Nephrology Author Type: [...] Follow the lytes No need for the GARNISHMENT SPECIALIST We will follow Avoid all renal toxins Dose meds for GFR < 30 Normal [facility] CONSULT [place] 01-13-2020 CONSULT PROG HNO ID: [id number] Author: Ann Echeverria Service: Endocrinology Author Type: [...] 30 years ago. ?H/o CAD and remote SD now admitted with NSTEMI who is found [...] January 13, 2020 TIME: 10:50 AM PAGER: [phone] Normal [facility] Hemogramon 01-13-2020 Erythrocyte distribution width (RBC) [Ratio] 15.1 % High 11.7-14.4 [facility] Comment on above: Performed By: #### H A1C #### [address] [address] Hematocrit (Bld) [Volume fraction] 33.4 % Low 34.1-44.9 [facility] Comment on above: Performed By: #### H A1C #### [address] [place], [place] [address] Hemoglobin (Bld) [Mass/Vol] 10.8 g/dL Low 11.2-15.7 [facility] Comment on above: Performed By: #### H A1C #### [facility] [address] [place] [address] MCH (RBC) [Entitic mass] 30.0 pg Normal 25.6-32.2 [facility] Comment on above: Performed By: #### H A1C #### [facility] [address] [place] [address] MCHC (RBC) [Mass/Vol] 32.3 % Normal 31.6-34.8 [facility] Comment on above: Performed By: #### H A1C #### [facility] [address] [place] [address] MCV (RBC) [Entitic vol] 92.8 fL Normal 79.4-94.8 [facility] Comment on above: Performed By: #### H A1C #### [facility] [address] [place] [address] Platelet mean volume (Bld) [Entitic vol] 12.2 fL Normal 9.4-12.3 [facility] Comment on above: Performed By: #### H A1C #### [place] [address] Platelets (Bld) [#/Vol] 188 thou/cmm Normal 182-369 [facility] Comment on above: Performed By: #### H A1C #### [place] [address] RBC (Bld) [#/Vol] 3.60 mil/cmm Low 3.93-5.22 [facility] Comment on above: Performed By: #### H A1C #### [facility] [address] [place] [address] RDW SD 50.5 fl High 36.4-46.3 [facility] [facility] Comment on above: Performed By: #### H A1C #### [place] [address] WBC (Bld) [#/Vol] 15.23 thou/cmm High 3.98-10.04 [facility] Comment on above: Performed By: #### H A1C #### [facility] [address] [place] [address] PROGRESSon 01-13-2020 PROGRESS HNO ID: [id number] Author: Yanet Rivera Service: Thoracic Surgery Author Type: Physician Type: Progress Notes Filed: 01/13/2020 3:04 PM Note Text: Patient seen this AM on 4200. She says she is doing better and was given her kleenex and incentive spirometer. Later d/w BILLET STRAIGHTENER. P-as ordered. Normal [facility] PROGRESS HNO ID: [id number] Author: Jack Ngo (Pharmacist) Service: Pharmacy Author [...] this patient. Signature: Jack Ngo, Pharmacist Pager/Extension: [phone] [facility] PROGRESS HNO ID: [id number] Author: Vish Hardy (Pa) Service: Cardiovascular Surgery Author Type: Physician Asphalt Roller Person Type: Progress Notes Filed: 01/13/2020 9:31 AM [...] 80/ Cr > 1.5) -CHADS2 score: 6 -[id number] VASc score: 9 ? Anticipated post-op respiratory [...] ? Remote Hx of CVA Transfer to [facility] Plan of care completed with RN. Patient questions answered. SIGNATURE: Vish Hardy PA-C PATIENT NAME: Cici Woodward DATE: January 13, 2020 TIME: 8:35 AM PAGER/CONTACT #: [phone] Normal [facility] PROGRESS HNO ID: [id number] Author: Cesar Marinelli Service: Pulmonary Disease Author [...] Hyperuricemia Diarrhea, Unspecified Acs (Acute Coronary Syndrome) ([facility]) S/P Cabg X 4 PAST MEDICAL HISTORY [...] ANGIOPLASTY 1988 - COLONOSCOP W/ OR W/O RUST SPEC 08/29/07 - LAPAROSCOPIC CHOLEYCYSTECTOMY Cholecystectomy, lap [...] Echo 01/03/20 LVEF 30% ABG: Invalid input(s): [id number] Assessment/Plan IMPRESSION: Critical Care Documentation: The patient [...] 2020 TIME: 8:13 AM Normal [facility] THERAPY NTon 01-13-2020 THERAPY NT HNO ID: [id number] Author: Cely Cantu/Flor Ritter Service: Occupational Therapy Author Type: Occupational Therapist Type: Therapy (PT/OT/Speech/Resp) Filed: 01/13/2020 11:34 AM Note Text: Occupational Therapy Evaluation SERVICE DATE: 01/13/2020 SERVICE TIME: 1029 to 1052 ROOM: [id number] Recommended Discharge Disposition: Acute Rehab Recommended Discharge [...] (ADL);General symptoms and signs-other Interventions Provided: Evaluation;Self Half-Way Management (83243) $ Evaluation-Moderate (40996) Billed Units: 1 unit OT Evaluation Moderate [...] awareness, history of CVA, s/p CABG Self Half-Way Management (91355) Treatment Minutes: 10 1 unit Skilled Intervention(s): [...] Hospital Course: Chart reviewed; Patient presented to [facility] for CABG x 4 on 01/09/2020 [...] SINUS - Pure hypercholesterolemia - Stroke (cerebrum) ([facility]) 2013 - Type II or unspecified type diabetes mellitus without mention of complication, uncontrolled - Unspecified cardiovascular disease - Unspecified essential hypertension - Urgency of urination 2008 PAST SURGICAL HISTORY Procedure Laterality Date - ANGIOPLASTY 1988 - COLONOSCOP W/ OR W/O RUST SPEC 08/29/07 - LAPAROSCOPIC CHOLEYCYSTECTOMY Cholecystectomy, lap [...] by licensed Occupational Therapist. Normal [facility] XR CHEST 1V FRONTALon 2019 XR [...] mid to distal superior vena cava. Overlying health administration teacher leads. Lungs and pleura: Diminished aeration left lung base most likely representing combination of atelectasis as well as left-sided pleural effusion. Slightly worse. Probable atelectasis medial right lung base. No pneumothorax. Cardiomediastinal silhouette: Heart size normal. Other: Intact median sternotomy wires. IMPRESSION: Diminished aeration left lung base consistent with atelectasis and probable left-sided pleural effusion. Slightly worse. Assistant Women'S Tennis Coach: PSCB Transcribe Date/Time: Jan 13 2020 6:51A Dictated by : MICKY PA MD This examination was interpreted and the report reviewed and electronically signed by: MICKY PA MD on Jan 13 2020 6:52AM EST Normal [facility] Basic Panelon 01-12-2020 Creatinine [Mass/Vol] 1.96 mg/dL High 0.51-0.95 [facility] Comment on above: Result Comment: Use of this assay is not recommended for patients undergoing treatment with phenindione, due to the potential for falsely depressed results. Performed By: #### H A1C #### [address] [address] Anion gap [Moles/Vol] 12 mmol/L Normal 8-16 [facility] Comment on above: Performed By: #### H A1C #### [address] [address] CO2 [Moles/Vol] 23 mmol/L Normal 21-32 [facility] Comment on above: Performed By: #### H A1C #### [facility] [address] [place], [place] [address] Glucose [Mass/Vol] 173 mg/dL High 70-99 [facility] Comment on above: Performed By: #### H A1C #### [facility] [address] [place], [place] [address] Urea nitrogen [Mass/Vol] 46 mg/dL High 7-18 [facility] Comment on above: Performed By: #### H A1C #### [facility] [address] [place], [place] [address] Calcium [Mass/Vol] 8.2 mg/dL Low 8.5-10.1 [facility] Comment on above: Performed By: #### H A1C #### [facility] [address] [place], [place] [address] Chloride [Moles/Vol] 106 mmol/L Normal 98-107 [facility] Comment on above: Performed By: #### H A1C #### [facility] [address] [place], [place] [address] Potassium [Moles/Vol] 4.7 mmol/L Normal 3.5-5.1 [facility] Comment on above: Performed By: #### H A1C #### [facility] [address] [place], [place] [address] Sodium [Moles/Vol] 136 mmol/L Normal 136-145 [facility] Comment on above: Performed By: #### H A1C #### [facility] [address] [place], [place] [address] CASE MGT INIT ASSESon 2019 CASE MGT INIT ASSES HNO ID: [id number] Author: Poly Strickland Service: Care Management Author Type: ? Type: Care Mgt Initial Assessment Filed: 01/12/2020 10:06 AM Note Text: CARE MANAGEMENT PROGRESS NOTE SERVICE DATE: 01/12/2020 SERVICE TIME: 929 LOS: 9 days IMM Follow Up Copy Given: Yes Copy given to:: Patient Method: In Person SIGNATURE: Poly Strickland PATIENT NAME: Cici Woodward DATE: January 12, 2020 TIME: 10:06 AM PAGER/CONTACT #: [phone] Teresita [facility] CONSULT PROIldefonso 01-12-2020 CONSULT G HNO ID: [id number] Author: Ann Echeverria Service: Endocrinology Author Type: [...] 30 years ago. ?H/o CAD and remote SD now admitted with NSTEMI who is found [...] January 12, 2020 TIME: 12:15 PM PAGER: [phone] Normal [facility] Hemogramon 01-12-2020 Erythrocyte distribution width (RBC) [Ratio] 15.6 % High 11.7-14.4 [facility] Comment on above: Performed By: #### H A1C #### [place] [id number] Hematocrit (Bld) [Volume fraction] 32.6 % Low 34.1-44.9 [facility] Comment on above: Performed By: #### H A1C #### [address] [address] Hemoglobin (Bld) [Mass/Vol] 10.3 g/dL Low 11.2-15.7 [facility] Comment on above: Performed By: #### H A1C #### [facility] [address] [place], [place] [address] MCH (RBC) [Entitic mass] 29.9 pg Normal 25.6-32.2 [facility] Comment on above: Performed By: #### H A1C #### [address] [address] MCHC (RBC) [Mass/Vol] 31.6 % Normal 31.6-34.8 [facility] Comment on above: Performed By: #### H A1C #### [facility] [address] [place] [address] MCV (RBC) [Entitic vol] 94.5 fL Normal 79.4-94.8 [facility] Comment on above: Performed By: #### H A1C #### [facility] [address] [place] [address] Platelet mean volume (Bld) [Entitic vol] 12.6 fL High 9.4-12.3 [facility] Comment on above: Performed By: #### H A1C #### [place] [address] Platelets (Bld) [#/Vol] 124 thou/cmm Low 182-369 [facility] Comment on above: Performed By: #### H A1C #### [place] [address] RBC (Bld) [#/Vol] 3.45 mil/cmm Low 3.93-5.22 [facility] Comment on above: Performed By: #### H A1C #### [place] [address] RDW SD 52.6 fl High 36.4-46.3 [facility] Comment on above: Performed By: #### H A1C #### [place] [address] WBC (Bld) [#/Vol] 17.62 thou/cmm High 3.98-10.04 [facility] Comment on above: Performed By: #### H A1C #### [place] [address] NUTRITIONon 01-12-2020 NUTRITION HNO ID: [id number] Author: Franci Gramajo RD Service: Nutrition Therapy Author Type: Registered Dietitian Type: Nutrition Filed: 01/12/2020 2:26 PM Note Text: NUTRITION THERAPY PROGRESS NOTE SERVICE DATE: 01/12/2020 SERVICE TIME: 14:20 Nutrition Assessment: Recommended Malnutrition Diagnosis: No Malnutrition Identified (01/07/20 1300 : [address] [place]) Estimated kilocalorie needs: 3914-2833 Calorie Calculation Method: 25-30 kcals/kg Estimated protein [...] January 12, 2020 TIME: 1:38 PM PAGER: [phone] Normal [facility] PROGRESSon 01-12-2020 PROGRESS HNO ID: [id number] Author: Cesar Marinelli Service: Pulmonary Disease Author [...] Disease, With Long-Term Current Use of Insulin ([facility]) History of Cva (Cerebrovascular Accident) Hyperuricemia Diarrhea, Unspecified Acs (Acute Coronary Syndrome) ([facility]) S/P Cabg X 4 PAST MEDICAL HISTORY Diagnosis Date - Abdominal pain, left lower quadrant - Abdominal pain, right lower quadrant - 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 Neuro Referral: Daija Alfonso, 10/19/08, Dx: [...] SINUS - Pure hypercholesterolemia - Stroke (cerebrum) ([facility]) 2013 - Type II or unspecified type diabetes mellitus without mention of complication, uncontrolled - Unspecified cardiovascular disease - Unspecified essential hypertension - Urgency of urination 2008 PAST SURGICAL HISTORY Procedure Laterality Date - ANGIOPLASTY 1988 - COLONOSCOP W/ OR W/O RUST SPEC 08/29/07 - LAPAROSCOPIC CHOLEYCYSTECTOMY Cholecystectomy, lap [...] 2020 TIME: 3:38 PM Normal [facility] PROGRESS HNO ID: [id number] Author: Cesar Burroughs Service: Nephrology Author Type: [...] Follow the lytes No need for the GARNISHMENT SPECIALIST We will follow Avoid all renal toxins Dose meds for GFR < 30 Normal [facility] PROGRESS HNO ID: [id number] Author: Vish Shin) Antony Service: Cardiovascular Surgery Author Type: Physician Asphalt Roller Person Type: Progress Notes Filed: 01/12/2020 1:24 PM [...] today's visit: CXR: Status post removal of [place]-Veto catheter. ?Left-sided chest tube, mediastinal drain, and [...] 80/ Cr > 1.5) -CHADS2 score: 6 -[id number] VASc score: 9 Anticipated post-op respiratory insufficiency [...] 12, 2020 TIME: 12:00 PM PAGER/CONTACT #: [phone] Normal [facility] THERAPY NTon 01-12-2020 THERAPY NT HNO ID: [id number] Author: Myranda (Pt) Arvin Service: Physical Therapy Author Type: Physical Therapist Type: Therapy (PT/OT/Speech/Resp) Filed: 01/12/2020 4:13 PM Note Text: Physical Therapy Evaluation SERVICE DATE: 01/12/2020 SERVICE TIME: 1006 to 1030 ROOM: [place] [address] Recommended Discharge Disposition: Acute Rehab Recommended Discharge [...] ess on feet Interventions Provided: Evaluation;Gait Training (25882) $ Evaluation-Moderate (12687) Billed Units: 1 unit History and examination of body systems see assessment section above. This patient?s clinical presentation is evolving. The patient required a moderate complexity evaluation. Gait Training (10939) Treatment Minutes: 9 1 unit Skilled Intervention(s): [...] year old female presented with STEMI at [facility] after going for CABG eval. 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 A venous sheath remains in place. Left-sided chest tube, mediastinal drain, pericardial drain have been removed. Lungs and pleura: No pneumothorax. Subsegmental atelectasis at both lung bases. Cardiomediastinal silhouette: Heart size normal. Other: None. IMPRESSION: Status post removal of [place]-Veto catheter. Left-sided chest tube, mediastinal drain, and pericardial drain have been removed. Assistant Women'S Tennis Coach: KURT Transcribe Date/Time: Jan 12 2020 7:02A Dictated by : MICKY PA MD This examination was interpreted and the report reviewed and electronically signed by: MICKY PA MD on Jan 12 2020 7:03AM EST Normal [facility] Basic Panelon 01-11-2020 Creatinine [Mass/Vol] 1.81 mg/dL High 0.51-0.95 [facility] Comment on above: Result Comment: Use of this assay is not recommended for patients undergoing treatment with phenindione, due to the potential for falsely depressed results. Performed By: #### H A1C #### [address] [address] Anion gap [Moles/Vol] 12 mmol/L Normal 8-16 [facility] Comment on above: Performed By: #### H A1C #### [address] [address] CO2 [Moles/Vol] 20 mmol/L Low 21-32 [facility] Comment on above: Performed By: #### H A1C #### [address] [address] Urea nitrogen [Mass/Vol] 39 mg/dL High 7-18 [facility] Comment on above: Performed By: #### H A1C #### [address] [address] Calcium [Mass/Vol] 8.2 mg/dL Low 8.5-10.1 [facility] Comment on above: Performed By: #### H A1C #### [facility] [address] [place], [place] [address] Glucose [Mass/Vol] 69 mg/dL Low 70-99 [facility] Comment on above: Performed By: #### H A1C #### [facility] [address] [place], [place] [address] Chloride [Moles/Vol] 111 mmol/L High 98-107 [facility] Comment on above: Performed By: #### H A1C #### [facility] [address] [place], [place] [address] Potassium [Moles/Vol] 4.8 mmol/L Normal 3.5-5.1 [facility] Comment on above: Performed By: #### H A1C #### [facility] [address] [place], [place] [address] Sodium [Moles/Vol] 138 mmol/L Normal 136-145 [facility] Comment on above: Performed By: #### H A1C #### [facility] [address] [place], [place] [address] CONSULT PROGon 01-11-2020 CONSULT PROG HNO ID: [id number] Author: Ann Echeverria Service: Endocrinology Author Type: [...] 30 years ago. ?H/o CAD and remote SD now admitted with NSTEMI who is found [...] MD PATIENT NAME: Cici Woodward DATE: January 11, 2020 TIME: 1:00 PM PAGER: [phone] Normal [facility] Hemogramon 01-11-2020 Erythrocyte distribution width (RBC) [Ratio] 15.9 % High 11.7-14.4 [facility] Comment on above: Performed By: #### H A1C #### [facility] [address] [place] [address] Hematocrit (Bld) [Volume fraction] 33.9 % Low 34.1-44.9 [facility] Comment on above: Performed By: #### H A1C #### [facility] [address] [place] [address] Hemoglobin (Bld) [Mass/Vol] 10.7 g/dL Low 11.2-15.7 [facility] Comment on above: Performed By: #### H A1C #### [facility] [address] [place] [address] MCH (RBC) [Entitic mass] 29.9 pg Normal 25.6-32.2 [facility] Comment on above: Performed By: #### H A1C #### [facility] [address] [place] [address] MCHC (RBC) [Mass/Vol] 31.6 % Normal 31.6-34.8 [facility] Comment on above: Performed By: #### H A1C #### [facility] [address] [place] [address] MCV (RBC) [Entitic vol] 94.7 fL Normal 79.4-94.8 [facility] Comment on above: Performed By: #### H A1C #### [facility] [address] [place] [address] Platelet mean volume (Bld) [Entitic vol] 12.5 fL High 9.4-12.3 [facility] Comment on above: Performed By: #### H A1C #### [facility] [address] [place] [address] Platelets (Bld) [#/Vol] 108 thou/cmm Low 182-369 [facility] Comment on above: Performed By: #### H A1C #### [facility] [address] [place] [address] RBC (Bld) [#/Vol] 3.58 mil/cmm Low 3.93-5.22 [facility] Comment on above: Performed By: #### H A1C #### [facility] [address] [place] [address] RDW SD 53.9 fl High 36.4-46.3 [facility] Comment on above: Performed By: #### H A1C #### [facility] [address] [place] [address] WBC (Bld) [#/Vol] 18.11 thou/cmm High 3.98-10.04 [facility] Comment on above: Performed By: #### H A1C #### [facility] [address] [place] [address] Magnesium Bloodon 01-11-2020 Magnesium [Mass/Vol] 2.3 mg/dL Normal 1.6-2.6 [facility] Comment on above: Performed By: #### H A1C #### [facility] [address] [place] [address] NURSING PROGon 01-11-2020 NURSING PROG HNO ID: [id number] Author: Rama (Rn) RITA Barraza Service: Nursing Author Type: Registered Nurse Type: Nursing Progress Note Filed: 01/11/2020 3:45 PM Note Text: [place] Veto removed from RT IJ.Tolerated well. No ectopy noted. Introducer cap placed over opening.Pt tolerated well. Normal [facility] PROGRESSon 01-11-2020 PROGRESS HNO ID: [id number] Author: Yanet Rivera Service: Thoracic Surgery Author Type: Physician Type: Progress Notes Filed: 01/11/2020 11:12 AM Note Text: CT Surg POD #2 Patient seen with care team, bedside nurse and family member at bedside. Labs, data, cxr, and careplan reviewed. P-as ordered. Normal [facility] PROGRESS HNO ID: [id number] Author: Anson Beaver Service: Critical Care Author [...] 97% on 4 liters NC Right IJ [place]eto [place] in place Chest tubes with no [...] 108 ? CXR?reviewed and shows right IJ [place], chest tubes in place; increase in bilateral [...] year old white woman with PMH of SD/ CAD, DM-II, hx of CVA, HTN, diverticulosis, gout, and HL had initially presented to [facility] for chest pain, found to have [...] inotropes - will need gentle diuresis - [place] can come out today and also chest [...] ? SIGNATURE: Anson Beaver MD [facility] PAGER:[phone] ICU Checklist Last Documented/Reviewed time: 01/11/2020 9:11 [...] Is Patient Clinically Ready to Transfer to [facility] or SDU?: No Discharge Planning: Home ? Normal [facility] PROGRESS HNO ID: [id number] Author: Gatito Godinez Service: Nephrology Author Type: [...] follow Do not anticipate any need for GARNISHMENT SPECIALIST Avoid all ISABELLA-I , for 72 h until cr is stable We will follow/call if any questions Paxton Godinez MD [facility] Normal [facility] XR CHEST 1V FRONTALon 2019 XR [...] internal jugular central venous sheath with associated [place]-Veto catheter, catheter tip overlies the main pulmonary [...] support lines and catheters, as described above. Assistant Women'S Tennis Coach: KURT Transcribe Date/Time: Jan 11 2020 7:03A Dictated by : JEFFY VAUGHN MD This examination was interpreted and the report reviewed and electronically signed by: JEFFY VAUGHN MD on Jan 11 2020 7:06AM EST Normal [facility] ANES Yadi 01-10-2020 ANES POST HNO ID: [id number] Author: [place] Service: Anesthesiology Author Type: [...] 11:35 AM PAGER/CONTACT #: Normal [facility] BRIEF OP NOTon 01-10-2020 BRIEF OP NOT HNO ID: [id number] Author: Darwin Rojo (Pa) Service: Cardiac Surgery Author Type: Physician Asphalt Roller Person Type: Brief Op Note Filed: 01/10/2020 8:45 AM Note Text: CARDIOTHORACIC BRIEF OP NOTE LOG ID: [id number] SURGERY/PROCEDURE DATE: 01/09/2020 INCISION/PROCEDURE START TIME: 8:17 AM INCISION CLOSE/PROCEDURE END TIME: 1:46 PM SURGEON(S) AND MOVING VAN DRIVER(S): Surgeon(s) and Role: * Yanet Rivera - Primary Physician Asphalt Roller Person: Darwin Rojo (Pa) Supervisor Tower: Juana Baker SA Supervisor Tower (Relief): Tami Paige SA PROCEDURES AND ANESTHESIA: [...] 2020 TIME: 8:33 AM PAGER/CONTACT #: [phone] [facility] Basic Panelon 01-10-2020 Creatinine [Mass/Vol] 1.55 mg/dL High 0.51-0.95 [facility] Comment on above: Result Comment: Use of this assay is not recommended for patients undergoing treatment with phenindione, due to the potential for falsely depressed results. Performed By: #### P BNP #### [facility] [address] [place], [place] [address] Glucose [Mass/Vol] 122 mg/dL High 70-99 [facility] Comment on above: Performed By: #### P BNP #### [facility] [address] [place], [place] [address] Anion gap [Moles/Vol] 13 mmol/L Normal 8-16 [facility] Comment on above: Performed By: #### P BNP #### [address] [address] Calcium [Mass/Vol] 8.0 mg/dL Low 8.5-10.1 [facility] Comment on above: Performed By: #### P BNP #### [address] [address] CO2 [Moles/Vol] 19 mmol/L Low 21-32 [facility] Comment on above: Performed By: #### P BNP #### [address] [address] Urea nitrogen [Mass/Vol] 30 mg/dL High 7-18 [facility] Comment on above: Performed By: #### P BNP #### [address] [address] Chloride [Moles/Vol] 116 mmol/L High 98-107 [facility] Comment on above: Performed By: #### P BNP #### [address] [address] Potassium [Moles/Vol] 4.8 mmol/L Normal 3.5-5.1 [facility] Comment on above: Performed By: #### P BNP #### [address] [address] Sodium [Moles/Vol] 143 mmol/L Normal 136-145 [facility] Comment on above: Performed By: #### P BNP #### [address] [address] Blood Gas Arterialon 020 Base Excess -5.8 mmol/L Low -3.0-3.0 [facility] Comment on above: Performed By: #### P BNP #### [facility] [address] [place] [address] HCO3 (Bld) [Moles/Vol] 18.6 mmol/L Low 21.0-28.0 [facility] Comment on above: Performed By: #### P BNP #### [place] [address] O2% Sat Arterial 98.3 % Normal 96.0-100.0 [facility] Comment on above: Performed By: #### P BNP #### [place] [address] PCO2 Arterial 33.8 mm Hg Low 35.0-45.0 [facility] Comment on above: Performed By: #### P BNP #### [place] [address] pH Arterial 7.357 Normal 7.350-7.450 [facility] Comment on above: Performed By: #### P BNP #### [place] [address] PO2 Arterial 110.0 mm Hg High 83.0-108.0 [facility] Comment on above: Performed By: #### P BNP #### [place] [address] FIO2 32 % Normal [facility] Comment on above: Performed By: #### P BNP #### [place] [address] CONSULT PROGon 01-10-2020 CONSULT PROG HNO ID: [id number] Author: Ann Echeverria Service: Endocrinology Author Type: [...] 30 years ago. ?H/o CAD and remote SD now admitted with NSTEMI who is found [...] January 10, 2020 TIME: 4:15 PM PAGER: [phone] Normal [facility] Hemogramon 01-10-2020 Erythrocyte distribution width (RBC) [Ratio] 15.4 % High 11.7-14.4 [facility] Comment on above: Performed By: #### P BNP #### [place] [address] Hematocrit (Bld) [Volume fraction] 33.8 % Low 34.1-44.9 [facility] Comment on above: Performed By: #### P BNP #### [place] [address] Hemoglobin (Bld) [Mass/Vol] 11.1 g/dL Low 11.2-15.7 [facility] Comment on above: Performed By: #### P BNP #### [place] [address] MCH (RBC) [Entitic mass] 30.3 pg Normal 25.6-32.2 [facility] Comment on above: Performed By: #### P BNP #### [place] [address] MCHC (RBC) [Mass/Vol] 32.8 % Normal 31.6-34.8 [facility] Comment on above: Performed By: #### P BNP #### [place] [address] MCV (RBC) [Entitic vol] 92.3 fL Normal 79.4-94.8 [facility] Comment on above: Performed By: #### P BNP #### [place] [address] Platelet mean volume (Bld) [Entitic vol] 11.6 fL Normal 9.4-12.3 [facility] Comment on above: Performed By: #### P BNP #### [address] [place], [place] [address] Platelets (Bld) [#/Vol] 150 thou/cmm Low 182-369 [facility] [facility] Comment on above: Performed By: #### P BNP #### [facility] [address] [place] [address] RBC (Bld) [#/Vol] 3.66 mil/cmm Low 3.93-5.22 [facility] Comment on above: Performed By: #### P BNP #### [facility] [address] [place] [address] RDW SD 50.5 fl High 36.4-46.3 [facility] Comment on above: Performed By: #### P BNP #### [facility] [address] [place] [address] WBC (Bld) [#/Vol] 20.17 thou/cmm High 3.98-10.04 [facility] Comment on above: Performed By: #### P BNP #### [facility] [address] [place] [address] Magnesium Bloodon 01-10-2020 Magnesium [Mass/Vol] 2.2 mg/dL Normal 1.6-2.6 [facility] Comment on above: Performed By: #### P BNP #### [facility] [address] [place] [address] PROGRESSon 01-10-2020 PROGRESS HNO ID: [id number] Author: Tami Marte (Pa) Service: Cardiac Surgery Author Type: Physician Asphalt Roller Person Type: Progress Notes Filed: 01/10/2020 3:27 PM [...] January 10, 2020 TIME: 2:56 PM PAGER/CONTACT #:[phone] [phone] Normal [facility] PROGRESS HNO ID: [id number] Author: Anson Beaver Service: Critical Care Author Type: Physician Type: Progress Notes Filed: 01/10/2020 11:48 AM Note Text: S/p extubation y'day. Pain is 7/10 and also has some back pain. No nausea or vomiting. No other complaints. Full ROS with the pt and RN done. On exam: 120/ 52, 89, 19, 37, 99% on 3 L NC Right IJ [place] Chest tubes with no leak Right [...] ? CXR reviewed and shows right IJ [place], chest tubes in place; left small effusion/ [...] year old white woman with PMH of SD/ CAD, DM-II, hx of CVA, HTN, diverticulosis, gout, and HL had initially presented to [facility] for chest pain, found to have [...] ? SIGNATURE: Anson Beaver MD [facility] PAGER:[phone] ICU Checklist Last Documented/Reviewed time: 01/10/2020 8:49 [...] Is Patient Clinically Ready to Transfer to [facility] or SDU?: No Discharge Planning: Home Normal [facility] PROGRESS HNO ID: [id number] Author: Gatito Godinez Service: Nephrology Author Type: Physician Type: Progress Notes Filed: 01/10/2020 2:09 PM Note Text: [facility] Subjective/ [...] follow Do not anticipate any need for GARNISHMENT SPECIALIST Avoid all ISABELLA-I , for 72 h until cr is stable and off pressors We will follow/call if any questions Paxton Godinez MD [facility] Normal [facility] Protimeon 01-10-2020 INR Coag (PPP) [Relative time] 1.03 {INR} Normal 0.90-1.30 [facility] Comment on above: Result Comment: Camille min K Antagonist (VKA) Therapeutic Range: INR 2 to 3 (Target INR of 2.5) Note: For patients treated with VKA drugs, such as warfarin, the [employer] 2012 Guideline recommends [...] [phone] Performed By: #### H A1C #### [address] [address] PT Coag (PPP) [Time] 11.1 s Normal 9.7-13.0 [facility] Comment on above: Performed By: #### H A1C #### [address] [address] XR CHEST 1V FRONTALon 2019 XR CHEST [...] internal jugular central venous sheath with associated [place]-Veto catheter with catheter tip overlying the region [...] additional support lines and catheters, as described. Assistant Women'S Tennis Coach: PSCB Transcribe Date/Time: Jan 10 2020 7:40A Dictated by : JEFFY VAUGHN MD This examination was interpreted and the report reviewed and electronically signed by: JEFFY VAUGHN MD on Jan 10 2020 7:44AM EST Normal [facility] ACT Arterial Panel (i-STAT)o n 01-09-2020 Kaolin ACT ( i-STAT) 125 sec Normal 74-137 [facility] Comment on above: Performed By: #### L IPD2 #### [facility] [address] [place] [address] ANES PREOPon 01-09-2020 ANES PREOP HNO ID: [id number] Author: Steven Christiansen Service: Anesthesiology Author Type: [...] Hyperuricemia Diarrhea, Unspecified Acs (Acute Coronary Syndrome) ([facility]) PAST MEDICAL HISTORY Diagnosis Date - Abdominal [...] SINUS - Pure hypercholesterolemia - Stroke (cerebrum) ([facility]) 2013 - Type II or unspecified type diabetes mellitus without mention of complication, uncontrolled - Unspecified cardiovascular disease - Unspecified essential hypertension - Urgency of urination 2008 PAST SURGICAL HISTORY Procedure Laterality Date - ANGIOPLASTY 1988 - COLONOSCOP W/ OR W/O RUST SPEC 08/29/07 - LAPAROSCOPIC CHOLEYCYSTECTOMY Cholecystectomy, lap [...] Drop in both eyes twice daily. - [place]-3 Fatty Acids 1,250 mg cap Take 1 [...] aptt results 1,000-4,000 Units INTRAVENOUS PRN Melisa (Natural Resources Technician) DAYANA Reza 2,200 Units at 01/04/20 0144 [...] January 09, 2020 TIME: 9:20 AM CSN: [id number] Normal [facility] Activated PTTon 01-09-2020 aPTT Coag (Bld) [Time] 29.2 s Normal 23.0-32.4 [facility] Comment on above: Result [...] laboratory APTT reagent in use throughout the [facility]. Performed By: #### P BNP #### [place] [address] Basic Panelon 01-09-2020 Creatinine [Mass/Vol] 1.26 mg/dL High 0.51-0.95 [facility] Comment on above: Result Comment: Use of this assay is not recommended for patients undergoing treatment with phenindione, due to the potential for falsely depressed results. Performed By: #### P BNP #### [place] [address] Glucose [Mass/Vol] 187 mg/dL High 70-99 [facility] Comment on above: Performed By: #### P BNP #### [place] [address] Anion gap [Moles/Vol] 13 mmol/L Normal 8-16 [facility] Comment on above: Performed By: #### P BNP #### [place] [address] Calcium [Mass/Vol] 8.5 mg/dL Normal 8.5-10.1 [facility] Comment on above: Performed By: #### P BNP #### [facility] [address] [place] [address] CO2 [Moles/Vol] 20 mmol/L Low 21-32 [facility] Comment on above: Performed By: #### P BNP #### [facility] [address] [place] [address] Performed By: #### L IPD2 #### [facility] [address] [place] [address] Urea nitrogen [Mass/Vol] 28 mg/dL High 7-18 [facility] Comment on above: Performed By: #### P BNP #### [place] [address] Chloride [Moles/Vol] 115 mmol/L High 98-107 [facility] Comment on above: Performed By: #### P BNP #### [place] [address] Potassium [Moles/Vol] 3.5 mmol/L Normal 3.5-5.1 [facility] Comment on above: Performed By: #### P BNP #### [place] [address] Sodium [Moles/Vol] 144 mmol/L Normal 136-145 [facility] Comment on above: Performed By: #### P BNP #### [place] [address] Creatinine [Mass/Vol] 1.19 mg/dL High 0.51-0.95 [facility] Comment on above: Result Comment: Use of this assay is not recommended for patients undergoing treatment with phenindione, due to the potential for falsely depressed results. Performed By: #### L IPD2 #### [place] [address] Anion gap [Moles/Vol] 10 mmol/L Normal 8-16 [facility] Comment on above: Performed By: #### L IPD2 #### [place] [address] Calcium [Mass/Vol] 8.8 mg/dL Normal 8.5-10.1 [facility] Comment on above: Performed By: #### L IPD2 #### [facility] [address] [place], [place] [address] Glucose [Mass/Vol] 161 mg/dL High 70-99 [facility] Comment on above: Performed By: #### L IPD2 #### [facility] [address] [place], [place] [address] Urea nitrogen [Mass/Vol] 33 mg/dL High 7-18 [facility] Comment on above: Performed By: #### L IPD2 #### [facility] [address] [place], [place] [address] Chloride [Moles/Vol] 113 mmol/L High 98-107 [facility] Comment on above: Performed By: #### L IPD2 #### [facility] [address] [place], [place] [address] Potassium [Moles/Vol] 4.0 mmol/L Normal 3.5-5.1 [facility] Comment on above: Performed By: #### L IPD2 #### [facility] [address] [place], [place] [address] Sodium [Moles/Vol] 139 mmol/L Normal 136-145 [facility] Comment on above: Performed By: #### L IPD2 #### [facility] [address] [place], [place] [address] Blood Gas Arterialon 020 Base Excess -6.5 mmol/L Low -3.0-3.0 [facility] Comment on above: Performed By: #### L IPD2 #### [facility] [address] [place], [place] [address] HCO3 (Bld) [Moles/Vol] 18.2 mmol/L Low 21.0-28.0 [facility] Comment on above: Performed By: #### L IPD2 #### [facility] [address] [place], [place] [address] O2% Sat Arterial 96.4 % Normal 96.0-100.0 [facility] Comment on above: Performed By: #### L IPD2 #### [facility] [address] [place], [place] [address] PCO2 Arterial 33.9 mm Hg Low 35.0-45.0 [facility] Comment on above: Performed By: #### L IPD2 #### [facility] [address] [place], [place] [address] pH Arterial 7.343 Low 7.350-7.450 [facility] Comment on above: Performed By: #### L IPD2 #### [facility] [address] [place], [place] [address] PO2 Arterial 78.9 mm Hg Low 83.0-108.0 [facility] Comment on above: Performed By: #### L IPD2 #### [facility] [address] [place] [address] FIO2 50 % Normal [facility] Comment on above: Performed By: #### L IPD2 #### [facility] [address] [place] [address] CG8 Arterial Panel (i-STAT)o n 01-09-2020 Base Excess (i-STAT) -1.0 mmol/L Normal -2.0 to 3.0 [facility] Comment on above: Performed By: #### L IPD2 #### [facility] [address] [place] [address] Glucose [Mass/Vol] 194 mg/dL High 70-99 [facility] Comment on above: Performed By: #### L IPD2 #### [facility] [address] [place] [address] HCO3 (Bld) [Moles/Vol] 24.4 mmol/L Normal 22.0-26.0 [facility] Comment on above: Performed By: #### L IPD2 #### [facility] [address] [place] [address] Hematocrit (Bld) [Volume fraction] 20 %PCV Critically low 38-51 [facility] Comment on above: Performed By: #### L IPD2 #### [facility] [address] [place], [place] [address] Hemoglobin (Bld) [Mass/Vol] 6.8 g/dL Critically low 12.0-17.0 [facility] Comment on above: Performed By: #### L IPD2 #### [facility] [address] [place] [address] Ionized Calcium (iSTAT) 4.4 mg/dL Low 4.5-5.3 [facility] Comment on above: Performed By: #### L IPD2 #### [facility] [address] [place], [place] [address] O2% Sat. (i-STAT) 100.0 % High 95.0-98.0 [facility] Comment on above: Performed By: #### L IPD2 #### [place] [address] Oxygen (Bld) [Partial pressure] 340.0 mm Hg High 80.0-105.0 [facility] Comment on above: Performed By: #### L IPD2 #### [place] [address] PCO2 (i-STAT) 40.0 mm Hg Normal 35.0-45.0 [facility] Comment on above: Performed By: #### L IPD2 #### [place] [address] pH (Bld) 7.393 [pH] Normal 7.350-7.450 [facility] Comment on above: Performed By: #### L IPD2 #### [place] [address] Potassium [Moles/Vol] 4.4 mmol/L Normal 3.5-4.9 [facility] Comment on above: Performed By: #### L IPD2 #### [facility] [address] [place], [place] [address] Sodium [Moles/Vol] 141 mmol/L Normal 138-146 [facility] Comment on above: Performed By: #### L IPD2 #### [facility] [address] [place], [place] [address] Total CO2 (i-STAT) 26 mmol/L Normal 23-27 [facility] Comment on above: Performed By: #### L IPD2 #### [place] [address] CG8 Venous Panel (i-STAT)on 01-09-2020 Base Excess (i-STAT) -8.0 mmol/L Normal -2.0 to 3.0 [facility] Comment on above: Performed By: #### L IPD2 #### [facility] [address] [place] [address] Glucose [Mass/Vol] 148 mg/dL High 70-99 [facility] Comment on above: Performed By: #### L IPD2 #### [facility] [address] [place] [address] HCO3 (Bld) [Moles/Vol] 19.0 mmol/L Low 23.0-28.0 [facility] Comment on above: Performed By: #### L IPD2 #### [place] [address] Hematocrit (Bld) [Volume fraction] 25 %PCV Low 38-51 [facility] Comment on above: Performed By: #### L IPD2 #### [facility] [address] [place] [address] Hemoglobin (Bld) [Mass/Vol] 8.5 g/dL Low 12.0-17.0 [facility] Comment on above: Performed By: #### L IPD2 #### [place] [address] Ionized Calcium (iSTAT) 4.7 mg/dL Normal 4.5-5.3 [facility] Comment on above: Performed By: #### L IPD2 #### [facility] [address] [place] [address] O2% Sat. (i-STAT) 75.0 % Normal 35.0-85.0 [facility] Comment on above: Performed By: #### L IPD2 #### [place] [address] Oxygen (Bld) [Partial pressure] 46.0 mm Hg Normal 20.0-50.0 [facility] Comment on above: Performed By: #### L IPD2 #### [place] [address] PCO2 (i-STAT) 41.4 mm Hg Normal 41.0-51.0 [facility] Comment on above: Performed By: #### L IPD2 #### [facility] [address] [place] [address] pH (Bld) 7.271 [pH] Low 7.310-7.410 [facility] Comment on above: Performed By: #### L IPD2 #### [facility] [address] [place] [address] Potassium [Moles/Vol] 4.1 mmol/L Normal 3.5-4.9 [facility] Comment on above: Performed By: #### L IPD2 #### [facility] [address] [place] [address] Sodium [Moles/Vol] 137 mmol/L Low 138-146 [facility] Comment on above: Performed By: #### L IPD2 #### [facility] [address] [place] [address] Total CO2 (i-STAT) 20 mmol/L Low 24-29 [facility] Comment on above: Performed By: #### L IPD2 #### [facility] [address] [place] [address] CONSULTon 01-09-2020 CONSULT HNO ID: [id number] Author: Anson Beaver Service: Critical Care Author Type: Physician Type: Consults Filed: 01/09/2020 3:51 PM Note Text: Asked to see this patient for post-op ICU care after CABG. Notes and meds reviewed. Full ROS with the RN done. No ROS with the pt possible. Ms Woodward is an 84 year old white woman with PMH of SD/ CAD, DM-II, hx of CVA, HTN, diverticulosis, gout, and HL had initially presented to [facility] for chest pain, found to have STEMI. She was then transferred here for further care. She was found to have multi-vessel CAD and so underwent CABG today. PMH; as above PSH: LHC, angioplasty, clau, colonoscopy, surgery for tubal FH: Mom had SD, dad - heart disease, brother with mouth cancer SH: Non-smoker Meds: Reviewed Allergies: Reviewed. On exam: 126/ 57, 80, 19, 36.3, 100% on 50% vent SIMV: 500/ 12/ 505/ 5/ PS 10 Still under the influence of [place] Right IJ [place]-Veto ETT and [place] Chest tubes with [...] 182 CXR reviewed and shows right IJ [place], ETT, OG, chest tubes in place; left [...] year old white woman with PMH of SD/ CAD, DM-II, hx of CVA, HTN, diverticulosis, gout, and HL had initially presented to [facility] for chest pain, found to have [...] minutes. SIGNATURE: Anson Beaver MD [facility] PAGER:[phone] [facility] CONSULT PROGon 01-09-2020 CONSULT PROG HNO ID: [id number] Author: Ann Echeverria Service: Endocrinology Author Type: [...] 30 years ago. ?H/o CAD and remote SD now admitted with NSTEMI who is found [...] January 09, 2020 TIME: 7:31 PM PAGER: [phone] Normal [facility] ECG COMPLETEon 01-09-2020 ECG COMPLETE NAME : CICI WOODWARD PID : [id number] : 1935 Gender : Female Race : ORD : [id number] Procedure Date : Jan 09 2020 14:14:43 Edit Date : Jan 11 2020 12:14:15 Diagnosis:SINUS TACHYCARDIA LEFT AXIS DEVIATION RIGHT BUNDLE BRANCH BLOCK INFERIOR INFARCT , AGE UNDETERMINED ABNORMAL ECG NO PREVIOUS ECGS AVAILABLE Confirmed by MD MAS SERGEY ([id number]) on 01/11/2020 12:14:14 PM Ventricular Rate : 103 BPM Atrial Rate : 103 BPM P-R Interval : 170 ms QRS Duration : 126 ms Q-T Interval : 402 ms QTC Calculation(Bazett) : 526 ms P Hendrix : 84 degrees R Hendrix : -59 degrees T Hendrix : 84 degrees Test Reason : Post-OP Location : 6 : [place] [address] Overread By : MD MAS SERGEY Edited By : MD MAS SERGEY Referred By : ISIDRO WOLF Acquired by : YAKELIN LEAVITT [facility] Hemogramon 01-09-2020 Erythrocyte distribution width (RBC) [Ratio] 14.3 % Normal 11.7-14.4 [facility] Comment on above: Performed By: #### P BNP #### [address] [address] Hematocrit (Bld) [Volume fraction] 42.3 % Normal 34.1-44.9 [facility] Comment on above: Performed By: #### P BNP #### [address] [address] Hemoglobin (Bld) [Mass/Vol] 13.9 g/dL Normal 11.2-15.7 [facility] Comment on above: Performed By: #### P BNP #### [address] [address] MCH (RBC) [Entitic mass] 30.3 pg Normal 25.6-32.2 [facility] Comment on above: Performed By: #### P BNP #### [address] [address] MCHC (RBC) [Mass/Vol] 32.9 % Normal 31.6-34.8 [facility] Comment on above: Performed By: #### P BNP #### [facility] [address] [place] [address] MCV (RBC) [Entitic vol] 92.4 fL Normal 79.4-94.8 [facility] Comment on above: Performed By: #### P BNP #### [facility] [address] [place] [address] Platelet mean volume (Bld) [Entitic vol] 11.8 fL Normal 9.4-12.3 [facility] Comment on above: Performed By: #### P BNP #### [facility] [address] [place] [address] Platelets (Bld) [#/Vol] 182 thou/cmm Normal 182-369 [facility] Comment on above: Performed By: #### P BNP #### [facility] [address] [place] [address] RBC (Bld) [#/Vol] 4.58 mil/cmm Normal 3.93-5.22 [facility] Comment on above: Performed By: #### P BNP #### [facility] [address] [place] [address] RDW SD 47.2 fl High 36.4-46.3 [facility] Comment on above: Performed By: #### P BNP #### [facility] [address] [place] [address] WBC (Bld) [#/Vol] 30.65 thou/cmm Critically high 3.98-10.0 4 [facility] Comment on above: Result Comment: Repe ated AND verified Performed By: #### P BNP #### [facility] [address] [place] [address] Hemogram/Diffon 01-09-2020 Abs Immature Grans 0.10 thou/cmm High 0.00-0.05 [facility] Comment on above: Performed By: #### L IPD2 #### [facility] [address] [place] [address] Abs Neut (ANC) 7.13 thou/cmm High 1.56-6.13 [facility] Comment on above: Performed By: #### L IPD2 #### [facility] [address] [place], [place] [address] Abs. Baso 0.06 thou/cmm Normal 0.01-0.08 [facility] Comment on above: Performed By: #### L IPD2 #### [facility] [address] [place], [place] [address] Abs. [place] 1.08 thou/cmm High 0.27-0.70 [facility] Comment on above: Performed By: #### L IPD2 #### [facility] [address] [place], [place] [address] Basophils/100 WBC (Bld) 0.5 % Normal [facility] Comment on above: Performed By: #### L IPD2 #### [facility] [address] [place], [place] [address] Eosinophils (Bld) [#/Vol] 0.06 thou/cmm Normal 0.00-0.31 [facility] Comment on above: Performed By: #### L IPD2 #### [facility] [address] [place], [place] [address] Eosinophils/100 WBC (Bld) 0.5 % Normal [facility] Comment on above: Performed By: #### L IPD2 #### [facility] [address] [place], [place] [address] Immature Grans 0.80 % Normal [facility] Comment on above: Performed By: #### L IPD2 #### [facility] [address] [place], [place] [address] Lymphocytes (Bld) [#/Vol] 3.80 thou/cmm High 1.18-3.74 [facility] Comment on above: Performed By: #### L IPD2 #### [facility] [address] [place], [place] [address] Lymphocytes/100 WBC (Bld) 31.1 % Normal [facility] Comment on above: Performed By: #### L IPD2 #### [facility] [address] [place], [place] [address] Monocytes/100 WBC (Bld) 8.8 % Normal [facility] Comment on above: Performed By: #### L IPD2 #### [facility] [address] [place] [address] Seg Neutrophil 58.3 % Normal [facility] Comment on above: Performed By: #### L IPD2 #### [facility] [address] [place] [address] Erythrocyte distribution width (RBC) [Ratio] 14.3 % Normal 11.7-14.4 [facility] Comment on above: Performed By: #### L IPD2 #### [facility] [address] [place] [address] Hematocrit (Bld) [Volume fraction] 31.4 % Low 34.1-44.9 [facility] Comment on above: Performed By: #### L IPD2 #### [facility] [address] [place] [address] Hemoglobin (Bld) [Mass/Vol] 10.4 g/dL Low 11.2-15.7 [facility] Comment on above: Performed By: #### L IPD2 #### [facility] [address] [place] [address] MCH (RBC) [Entitic mass] 30.7 pg Normal 25.6-32.2 [facility] Comment on above: Performed By: #### L IPD2 #### [facility] [address] [place] [address] MCHC (RBC) [Mass/Vol] 33.1 % Normal 31.6-34.8 [facility] Comment on above: Performed By: #### L IPD2 #### [facility] [address] [place] [address] MCV (RBC) [Entitic vol] 92.6 fL Normal 79.4-94.8 [facility] Comment on above: Performed By: #### L IPD2 #### [facility] [address] [place] [address] Platelet mean volume (Bld) [Entitic vol] 11.4 fL Normal 9.4-12.3 [facility] Comment on above: Performed By: #### L IPD2 #### [facility] [address] [place] [address] Platelets (Bld) [#/Vol] 291 thou/cmm Normal 182-369 [facility] Comment on above: Performed By: #### L IPD2 #### [facility] [address] [place] [address] RBC (Bld) [#/Vol] 3.39 mil/cmm Low 3.93-5.22 [facility] Comment on above: Performed By: #### L IPD2 #### [place] [address] RDW SD 47.2 fl High 36.4-46.3 [facility] Comment on above: Performed By: #### L IPD2 #### [facility] [address] [place] [address] WBC (Bld) [#/Vol] 12.23 thou/cmm High 3.98-10.04 [facility] Comment on above: Performed By: #### L IPD2 #### [place] [address] Magnesium Bloodon 01-09-2020 Magnesium [Mass/Vol] 2.6 mg/dL Normal 1.6-2.6 [facility] Comment on above: Performed By: #### P BNP #### [place] [address] NURSING PROGon 01-09-2020 NURSING PROG HNO ID: [id number] Author: Lacey (Rn) RITA Morton Service: Nursing Author Type: Registered Nurse Type: Nursing Progress Note Filed: 01/09/2020 6:37 PM Note Text: Nursing Progress Note Patient Name: Cici Woodward Patient Location: [id number]/[facility]-32 33- Daily Note: Pt complaining of extreme pain in right leg, foot light purple in color, unable to doppler pulse. Isabella wrap taken down, foot pinked back up and able to doppler pulse again. Dr Rivera notified, OK to leave isabella wrap off and apply petar hose. This note was completed by: Lacey Morton RN Normal [facility] O2% Measured Venouson 2019 O2% Measured Venous 67.3 % High 18.2-66.4 [facility] Comment on above: Performed By: #### P BNP #### [facility] [address] [place] [address] OPERATIVE NOon 01-09-2020 OPERATIVE NO HNO ID: [id number] Author: Yanet Rivera Service: Thoracic Surgery Author Type: Physician Type: Operative Report Filed: 01/11/2020 12:38 PM Note Text: [facility] - Operative Report CICI WOODWARD I : 1935 AGE: 84. SEX: F PATIENT TYPE: I HOSP SVC: INT LOCATION: [facility] ATTENDING PHYSICIAN: YANET RIVERA CSN NUMBER: [id number] DATE OF SURGERY/PROCEDURE: 01/09/2020 INCISION/PROCEDURE START TIME: 8:17 AM INCISION CLOSE/PROCEDURE END TIME: 1:46 PM PREOPERATIVE DIAGNOSIS: Severe 3-vessel coronary artery disease with yjz-EA-sjxhbfw elevation myocardial infarction with ischemic cardiomyopathy with [...] than 1.5 mm. SURGEON: Yanet Rivera MD MOVING VAN DRIVER: The vein harvest performed by RANDY Grant. Chip Bin Conveyor Tender was by Karen Baker SA. SURGERY/PROCEDURE: Coronary artery bypass grafting x4 with a pedicled left internal mammary artery graft otrx-nk-vxgk to the diagonal and end-to-side to the anterior descending in sequential fashion, saphenous vein graft rfzu-lk-yfwr to the small obtuse marginal branch of the circumflex and end-to-side to the sizable posterior lateral branch of the right coronary artery. Endoscopic vein harvesting, right lower extremity, right thigh and right leg for use as conduit. ANESTHESIA: General endotracheal. INDICATIONS AND FINDINGS: Indications: Patient was accepted in transfer from [facility] by Dr. Rosenberg. I was ultimately asked to assume cardiac surgery care for the patient. She did have to remain off her chronic Plavix and Brilinta loading from [facility] for at least 5 days prior to [...] appropriate monitors, lines, and tubes including the [place]-Veto and intraoperative MAYELA, her neck, chest, abdomen, [...] vein we had just utilized. A crossing pcwm-ed-bnaj anastomosis was constructed with 7-0 Prolene. Filling was limited in the small branch as expected. Good filling persisted in the posterior lateral branch of the right coronary. Next, the left internal mammary was passed through a rent in the pericardium lateral to the thymic fat pad. I had cleared the pedicle at the site chosen for the kmrs-hq-xeiz anastomosis to the diagonal. Arteriotomy was made in the diagonal. Arteriotomy was made in the midpoint of the GHOSH, and it was sutured to the diagonal with running 7-0 Prolene. Bulldog clamp was removed. Good filling was seen distally in the diagonal. There was good flow out the end of the [place] GHOSH as well. Bulldog clamp was replaced. [...] was placed. Left pleural space drained with 32-Spanish chest tube. Mediastinum drained with a 32 PleuraFlow special mediastinal catheter. These were connected to water-seal suction drainage device. The small endoscopic vein harvest incision in the right lower extremity was closed as appropriate with absorbable suture. Dermabond was placed. Patient was then transported directly to the cardiac surgery intensive care unit after correct sponge, needle, and instrument count. Yanet Rivera MD PS:[id number] /[id number] Normal [facility] PROGRESSon 01-09-2020 PROGRESS HNO ID: [id number] Author: Cesar Burroughs Service: Nephrology Author Type: [...] follow Do not anticipate any need for GARNISHMENT SPECIALIST Avoid all ISABELLA-I , for 72 h until cr is stable and off pressors We will follow Normal [facility] PROGRESS HNO ID: [id number] Author: Yanet Rivera Service: Thoracic Surgery Author Type: Physician Type: Progress Notes Filed: 01/09/2020 1:48 PM Note Text: CARDIOTHORACIC BRIEF OP NOTE LOG ID: [id number] SURGERY/PROCEDURE DATE: 01/09/2020 INCISION/PROCEDURE START TIME: 8:17 AM INCISION CLOSE/PROCEDURE END TIME: SURGEON(S) AND MOVING VAN DRIVER(S): Surgeon(s) and Role: * Yanet Rivera - Primary Physician Asphalt Roller Person: Darwin Rojo (Pa) Supervisor Tower: Juana Mcdonald) SA Olivia Supervisor Tower (Relief): Tami Mcdonald) SA Grecia PROCEDURES AND [...] PM PAGER/CONTACT #: [phone] Normal [facility] Protimeon 01-09-2020 INR Coag (PPP) [Relative time] 1.09 {INR} Normal 0.90-1.30 [facility] Comment on above: Result Comment: Camille min K Antagonist (VKA) Therapeutic Range: INR 2 to 3 (Target INR of 2.5) Note: For patients treated with VKA drugs, such as warfarin, the [place] [employer] 2012 Guideline recommends [...] By: #### P BNP #### [facility] [address] [place] [address] PT Coag (PPP) [Time] 11.7 s Normal 9.7-13.0 [facility] Comment on above: Performed By: #### P BNP #### [facility] [address] [place] [address] RBC Productson 01-09-2020 Xmatch Unit 1 see below Normal [facility] Comment on above: Result Comment: Comp atible Performed By: #### L IPD2 #### [facility] [address] [place] [address] Xmatch Unit 2 see below Normal [facility] Comment on above: Result Comment: Comp atible Performed By: #### L IPD2 #### [facility] [address] [place] [address] XR CHEST 1V FRONTALon 2019 XR CHEST [...] stomach. There is a right internal jugular [place]-Veto catheter terminating in profile with the pulmonary [...] available at time of dictation as requested.. Assistant Women'S Tennis Coach: KURT Transcribe Date/Time: Jan 09 2020 2:54P Dictated by : REESE BATES MD This examination was interpreted and the report reviewed and electronically signed by: REESE BATES MD on Jan 09 2020 2:59PM EST Normal [facility] Activated PTTon 01-08-2020 aPTT Coag (Bld) [Time] 54.0 s High 23.0-32.4 [facility] Comment on above: Result [...] laboratory APTT reagent in use throughout the [facility]. Performed By: #### L IPD2 #### [place] [address] Basic Panelon 01-08-2020 Creatinine [Mass/Vol] 1.44 mg/dL High 0.51-0.95 [facility] Comment on above: Result Comment: Use of this assay is not recommended for patients undergoing treatment with phenindione, due to the potential for falsely depressed results. Performed By: #### L IPD2 #### [facility] [address] [place] [address] Anion gap [Moles/Vol] 10 mmol/L Normal 8-16 [facility] Comment on above: Performed By: #### L IPD2 #### [address] [address] CO2 [Moles/Vol] 22 mmol/L Normal 21-32 [facility] Comment on above: Performed By: #### L IPD2 #### [facility] [address] [place], [place] [address] Urea nitrogen [Mass/Vol] 35 mg/dL High 7-18 [facility] Comment on above: Performed By: #### L IPD2 #### [facility] [address] [place], [place] [address] Calcium [Mass/Vol] 8.8 mg/dL Normal 8.5-10.1 [facility] Comment on above: Performed By: #### L IPD2 #### [facility] [address] [place], [place] [address] Glucose [Mass/Vol] 134 mg/dL High 70-99 [facility] Comment on above: Performed By: #### L IPD2 #### [facility] [address] [place], [place] [address] Chloride [Moles/Vol] 113 mmol/L High 98-107 [facility] Comment on above: Performed By: #### L IPD2 #### [facility] [address] [place], [place] [address] Potassium [Moles/Vol] 3.7 mmol/L Normal 3.5-5.1 [facility] Comment on above: Performed By: #### L IPD2 #### [facility] [address] [place], [place] [address] Sodium [Moles/Vol] 141 mmol/L Normal 136-145 [facility] Comment on above: Performed By: #### L IPD2 #### [facility] [address] [place], [place] [address] CONSULT PROGon 01-08-2020 CONSULT PROG HNO ID: [id number] Author: Ann Echeverria Service: Endocrinology Author Type: [...] 30 years ago. ?H/o CAD and remote SD now admitted with NSTEMI who is found [...] January 08, 2020 TIME: 2:35 PM PAGER: [phone] Normal [facility] Hemogram/Diffon 01-08-2020 Abs Immature Grans 0.09 thou/cmm High 0.00-0.05 [facility] Comment on above: Performed By: #### T ROP #### [place] [address] Abs Neut (ANC) 4.20 thou/cmm Normal 1.56-6.13 [facility] Comment on above: Performed By: #### T ROP #### [place] [address] Abs. Baso 0.05 thou/cmm Normal 0.01-0.08 [facility] Comment on above: Performed By: #### T ROP #### [place] [address] Abs. [place] 0.85 thou/cmm High 0.27-0.70 [facility] Comment on above: Performed By: #### T ROP #### [place] [address] Basophils/100 WBC (Bld) 0.5 % Normal [facility] Comment on above: Performed By: #### T ROP #### [place] [address] Eosinophils (Bld) [#/Vol] 0.11 thou/cmm Normal 0.00-0.31 [facility] Comment on above: Performed By: #### T ROP #### [facility] [address] [place], [place] [address] Eosinophils/100 WBC (Bld) 1.2 % Normal [facility] Comment on above: Performed By: #### T ROP #### [facility] [address] [place], [place] [address] Immature Grans 1.00 % Normal [facility] Comment on above: Performed By: #### T ROP #### [facility] [address] [place], [place] [address] Lymphocytes (Bld) [#/Vol] 4.16 thou/cmm High 1.18-3.74 [facility] Comment on above: Performed By: #### T ROP #### [facility] [address] [place], [place] [address] Lymphocytes/100 WBC (Bld) 43.9 % Normal [facility] Comment on above: Performed By: #### T ROP #### [facility] [address] [place], [place] [address] Monocytes/100 WBC (Bld) 9.0 % Normal [facility] Comment on above: Performed By: #### T ROP #### [facility] [address] [place], [place] [address] Seg Neutrophil 44.4 % Normal [facility] Comment on above: Performed By: #### T ROP #### [address] [address] Erythrocyte distribution width (RBC) [Ratio] 14.1 % Normal 11.7-14.4 [facility] Comment on above: Performed By: #### T ROP #### [facility] [address] [place], [place] [address] Hematocrit (Bld) [Volume fraction] 32.4 % Low 34.1-44.9 [facility] Comment on above: Performed By: #### T ROP #### [facility] [address] [place], [place] [address] Hemoglobin (Bld) [Mass/Vol] 10.6 g/dL Low 11.2-15.7 [facility] Comment on above: Performed By: #### T ROP #### [facility] [address] [place] [address] MCH (RBC) [Entitic mass] 30.7 pg Normal 25.6-32.2 [facility] Comment on above: Performed By: #### T ROP #### [facility] [address] [place] [address] MCHC (RBC) [Mass/Vol] 32.7 % Normal 31.6-34.8 [facility] Comment on above: Performed By: #### T ROP #### [facility] [address] [place] [address] MCV (RBC) [Entitic vol] 93.9 fL Normal 79.4-94.8 [facility] Comment on above: Performed By: #### T ROP #### [facility] [address] [place] [address] Platelet mean volume (Bld) [Entitic vol] 11.3 fL Normal 9.4-12.3 [facility] Comment on above: Performed By: #### T ROP #### [facility] [address] [place] [address] Platelets (Bld) [#/Vol] 298 thou/cmm Normal 182-369 [facility] Comment on above: Performed By: #### T ROP #### [place] [address] RBC (Bld) [#/Vol] 3.45 mil/cmm Low 3.93-5.22 [facility] Comment on above: Performed By: #### T ROP #### [facility] [address] [place] [address] RDW SD 47.0 fl High 36.4-46.3 [facility] Comment on above: Performed By: #### T ROP #### [facility] [address] [place] [address] WBC (Bld) [#/Vol] 9.47 thou/cmm Normal 3.98-10.04 [facility] Comment on above: Performed By: #### T ROP #### [place] [address] [facility] HNO ID: [id number] Author: Massimo Evans (Pharmacist) Service: Pharmacy Author [...] well, and Pharmacy records: Fill hx at [facility] and [facility] (patient gets insulins filled at [facility] due to convenience they will mail these to her). Medication Nonadherence Identified: No barriers noted The above information represents the best possible medication history: Yes Reconciliation completed? Yes All DATA ANALYTICS CHIEF SCIENTIST medications addressed by [facility] Plavix held on admission in anticipation of surgery. Amoxicillin stopped due to not appropriate therapy (see short term meds below). Insulins were held due to adjusting doses inpatient- currently ordered alternate doses. Discussed addition of eye ointment qhs with DAYANA Reza and alisson verbal order. Qnczt-aa-Frppiwrte Medication List Adjustments: Medications Added: Systane eye [...] - Ultram [Tramadol Hc* Vomiting Preferred Pharmacy: [facility] Current DATA ANALYTICS CHIEF SCIENTIST Medications: Prior to Admission medications as of [...] Drop in both eyes twice daily. Yes [place]-3 Fatty Acids 1,250 mg cap Take 1 capsule by mouth once daily. Yes calcium carbonate 600 mg-cholecalciferol 400 units (CALCIUM 600 + D) 600 mg(1,500mg) -400 unit tab Take 1 tablet by mouth once daily. Yes blood sugar diagnostic(ASCENSIA CONTOUR TEST STRIPS) Test Blood sugar once daily 250.00, non insulin dep EXT 16950 MASSIMO EVANS, PHARMACIST January 08, 2020 3:41 PM Normal [facility] PROGRESSon 01-08-2020 PROGRESS HNO ID: [id number] Author: Jaylan Bedolla Service: Hospital Medicine Author Type: Physician Type: Progress Notes Filed: 01/08/2020 3:56 PM Note Text: DEPARTMENT OF HOSPITAL MEDICINE PROGRESS NOTE SERVICE DATE: 01/08/2020 SERVICE TIME: 3:56 PM Hospital Medicine/Primary Attending:Jaylan bedolla MD NIGHT AND WEEKEND COVERAGE: From 7am - 7pm, please call [phone] After 7pm, please call cross cover pager #[phone] Subjective INTERVAL HPI: Reports that she is [...] 1800 vte non-pharmacologic prophylaxis - none indicated (mn,oh) 01/03/20 1800 vte current anticoag therapy (mn,ms) 01/03/20 1800 activity - mobilize patient ([place], [place]) VTE Prophylaxis: VTE prophylaxis appropriate Disposition: Home Plan of care discussed with: Patient SIGNATURE: Chandan Tavarez MD PATIENT NAME: Cici Woodward DATE: January 08, 2020 TIME: 3:31 PM PAGER/CONTACT #: [phone] [facility] PROGRESS HNO ID: [id number] Author: Gatito Godinez Service: Nephrology Author Type: [...] toxins She is aware of risks of GARNISHMENT SPECIALIST and agreeable to procced Avoid all renal toxins Avoid BP shifts K better today Trend the cr Avoid all renal toxins We will follow closely ? Paxton Godinez MD [facility] PROGRESS HNO ID: [id number] Author: Yanet Rivera Service: Thoracic Surgery Author Type: Physician Type: Progress Notes Filed: 01/08/2020 9:48 AM Note Text: Patient seen this AM. Has no c/o, questions answered, and she wishes to proceed with increased risk cabg in AM. P-OR Sun 0800. [facility] ALLIED HEALTHon 01-07-2020 ALLIED HEALTH HNO ID: [id number] Author: Isidro (Student) Tor Duenas Service: Spiritual Care Author Type: Student Type: Allied Health Filed: 01/07/2020 10:54 AM Note Text: SPIRITUALCARE Spiritual Care Visit- Brief Note Name: Cici Woodward Date: January 07, 2020 Notes: Patient requested die assembler visit for prayer prior to surgery this Sunday. Prayed with patient. Patient appreciative. Aed Trainer Signature: Isidro Duenas To contact the Spiritual Care Department: Please call [phone] or Page the On-Call Aed Trainer at pager [phone] Thank you for the opportunity to be of service. This is an electronically created document. IF PRINTED, PLEASE DO NOT REMOVE FROM THE CHART OR MODIFY PRINTED COPY. [facility] Activated PTTon 01-07-2020 aPTT Coag (Bld) [Time] 58.6 s High 23.0-32.4 [facility] Comment on above: Result [...] laboratory APTT reagent in use throughout the [facility]. Performed By: #### T ROP #### [place] [address] Basic Panelon 01-07-2020 Creatinine [Mass/Vol] 1.46 mg/dL High 0.51-0.95 [facility] Comment on above: Result Comment: Use of this assay is not recommended for patients undergoing treatment with phenindione, due to the potential for falsely depressed results. Performed By: #### T ROP #### [place] [address] Urea nitrogen [Mass/Vol] 41 mg/dL High 7-18 [facility] Comment on above: Performed By: #### T ROP #### [place] [address] Anion gap [Moles/Vol] 8 mmol/L Normal 8-16 [facility] Comment on above: Performed By: #### T ROP #### [place] [address] CO2 [Moles/Vol] 22 mmol/L Normal 21-32 [facility] Comment on above: Performed By: #### T ROP #### [place] [address] Calcium [Mass/Vol] 8.6 mg/dL Normal 8.5-10.1 [facility] Comment on above: Performed By: #### T ROP #### [place] [address] Glucose [Mass/Vol] 126 mg/dL High 70-99 [facility] Comment on above: Performed By: #### T ROP #### [place] [address] Chloride [Moles/Vol] 114 mmol/L High 98-107 [facility] Comment on above: Performed By: #### T ROP #### [facility] [address] [place], [place] [address] Potassium [Moles/Vol] 3.4 mmol/L Low 3.5-5.1 [facility] Comment on above: Performed By: #### T ROP #### [facility] [address] [place], [place] [address] Sodium [Moles/Vol] 141 mmol/L Normal 136-145 [facility] Comment on above: Performed By: #### T ROP #### [facility] [address] [place], [place] [address] CASE MANAGEMon 01-07-2020 CASE MANAGEM HNO ID: [id number] Author: Patience BlairRn) RITA Christy Service: Care Management Author Type: Registered Nurse Type: Care Mgt Progress Note Filed: 01/07/2020 11:25 AM Note Text: CARE MANAGEMENT PROGRESS NOTE SERVICE DATE: 01/07/2020 SERVICE TIME: 11:24 AM LOS: 4 days Spoke with pt at the bedside. Plan CABG on Sunday. Pt states that she would like [facility] and [facility] if rehab is appropriate post op. Pt refused lists. Will follow clinical progress. SIGNATURE: Patience Christy RN PATIENT NAME: Cici Woodward DATE: January 07, 2020 TIME: 11:23 AM PAGER/CONTACT #: [phone] [facility] CONSULT PROGon 01-07-2020 CONSULT PROG HNO ID: [id number] Author: Ann Echeverria Service: Endocrinology Author Type: [...] 30 years ago. ?H/o CAD and remote SD now admitted with NSTEMI who is found [...] 2:35 PM PAGER: [phone] Normal [facility] Hemogram/Diffon 01-07-2020 Abs Immature Grans 0.07 thou/cmm High 0.00-0.05 [facility] Comment on above: Performed By: #### T ROP #### [place] [address] Abs Neut (ANC) 4.35 thou/cmm Normal 1.56-6.13 [facility] Comment on above: Performed By: #### T ROP #### [place] [address] Abs. Baso 0.06 thou/cmm Normal 0.01-0.08 [facility] Comment on above: Performed By: #### T ROP #### [place] [address] Abs. [place] 0.85 thou/cmm High 0.27-0.70 [facility] Comment on above: Performed By: #### T ROP #### [place] [address] Basophils/100 WBC (Bld) 0.6 % Normal [facility] Comment on above: Performed By: #### T ROP #### [facility] [address] [place], [place] [address] Eosinophils (Bld) [#/Vol] 0.12 thou/cmm Normal 0.00-0.31 [facility] Comment on above: Performed By: #### T ROP #### [facility] [address] [place], [place] [address] Eosinophils/100 WBC (Bld) 1.2 % Normal [facility] Comment on above: Performed By: #### T ROP #### [facility] [address] [place], [place] [address] Immature Grans 0.70 % Normal [facility] Comment on above: Performed By: #### T ROP #### [facility] [address] [place], [place] [address] Lymphocytes (Bld) [#/Vol] 4.26 thou/cmm High 1.18-3.74 [facility] Comment on above: Performed By: #### T ROP #### [facility] [address] [place], [place] [address] Lymphocytes/100 WBC (Bld) 43.9 % Normal [facility] Comment on above: Performed By: #### T ROP #### [facility] [address] [place], [place] [address] Monocytes/100 WBC (Bld) 8.8 % Normal [facility] Comment on above: Performed By: #### T ROP #### [facility] [address] [place], [place] [address] Seg Neutrophil 44.8 % Normal [facility] Comment on above: Performed By: #### T ROP #### [facility] [address] [place], [place] [address] Erythrocyte distribution width (RBC) [Ratio] 13.7 % Normal 11.7-14.4 [facility] Comment on above: Performed By: #### T ROP #### [facility] [address] [place], [place] [address] Hematocrit (Bld) [Volume fraction] 33.1 % Low 34.1-44.9 [facility] Comment on above: Performed By: #### T ROP #### [facility] [address] [place] [address] Hemoglobin (Bld) [Mass/Vol] 10.5 g/dL Low 11.2-15.7 [facility] Comment on above: Performed By: #### T ROP #### [facility] [address] [place] [address] MCH (RBC) [Entitic mass] 29.7 pg Normal 25.6-32.2 [facility] Comment on above: Performed By: #### T ROP #### [facility] [address] [place] [address] MCHC (RBC) [Mass/Vol] 31.7 % Normal 31.6-34.8 [facility] Comment on above: Performed By: #### T ROP #### [place] [address] MCV (RBC) [Entitic vol] 93.5 fL Normal 79.4-94.8 [facility] Comment on above: Performed By: #### T ROP #### [facility] [address] [place] [address] Platelet mean volume (Bld) [Entitic vol] 11.3 fL Normal 9.4-12.3 [facility] Comment on above: Performed By: #### T ROP #### [place] [address] Platelets (Bld) [#/Vol] 307 thou/cmm Normal 182-369 [facility] Comment on above: Performed By: #### T ROP #### [facility] [address] [place] [address] RBC (Bld) [#/Vol] 3.54 mil/cmm Low 3.93-5.22 [facility] Comment on above: Performed By: #### T ROP #### [place] [address] RDW SD 46.5 fl High 36.4-46.3 [facility] Comment on above: Performed By: #### T ROP #### [facility] [address] [place] [id number] WBC (Bld) [#/Vol] 9.70 thou/cmm Normal 3.98-10.04 [facility] Comment on above: Performed By: #### T CRUZ #### [facility] [address] [place] [id number] NUTRITIONon 01-07-2020 NUTRITION HNO ID: [id number] Author: Kinjal Velarde Service: Nutrition Therapy Author Type: Registered Dietitian Type: Nutrition Filed: 01/07/2020 2:04 PM Note Text: NUTRITION THERAPY INITIAL ASSESSMENT SERVICE DATE: 01/07/2020 SERVICE TIME: 8:36 AM Nutrition Assessment: Recommended Malnutrition Diagnosis: No Malnutrition Identified Nutrition Diagnosis: Problem: Increased nutrient needs Related to: (Increased demand ) As evidenced by: Procedure/surgery;Medic al condition Estimated kilocalorie needs: 7696-8395 Calorie Calculation Method: 25-30 kcals/kg Estimated protein [...] January 07, 2020 TIME: 8:36 AM PAGER: [phone] [facility] PLAN OF CAREon 01-07-2020 PLAN OF CARE HNO ID: [id number] Author: Melisa Reza CNP Service: Cardiovascular Surgery [...] with more than 50% of the total sdmg-ll-ajpz time of the visit in counseling / coordination of care. Melisa Reza APRN.MACHINE BOSS Normal [facility] PROGRESSon 01-07-2020 PROGRESS HNO ID: [id number] Author: Cesar Burroughs Service: Nephrology Author Type: [...] Recent Labs 01/07/20 0615 CO2 22 Specific [place], Ur Date Value Ref Range Status 12/25/2019 [...] Sunday She is aware of risks of GARNISHMENT SPECIALIST and agreeable to procced Avoid all renal toxins Avoid BP shifts repalce K Trend the cr Avoid all renal toxins We will follow closely Normal [facility] PROGRESS HNO ID: [id number] Author: Jaylan Bedolla Service: Hospital Medicine Author Type: Physician Type: Progress Notes Filed: 01/07/2020 3:33 PM Note Text: DEPARTMENT OF HOSPITAL MEDICINE PROGRESS NOTE SERVICE DATE: 01/07/2020 SERVICE TIME: 3:30 PM Hospital Medicine/Primary Attending:Jaylan bedolla MD NIGHT AND WEEKEND COVERAGE: From 7am - 7pm, please call [phone] After 7pm, please call cross cover pager #[phone] Subjective INTERVAL HPI: Reports that she is [...] 1800 vte non-pharmacologic prophylaxis - none indicated (mn,ms) 01/03/20 1800 vte current anticoag therapy (mn,ms) 01/03/20 1800 activity - mobilize patient ([place], [place]) VTE Prophylaxis: VTE prophylaxis appropriate Disposition: Home Plan of care discussed with: Patient SIGNATURE: Chandan Tavarez MD PATIENT NAME: Cici Woodward DATE: January 07, 2020 TIME: 3:31 PM PAGER/CONTACT #: [phone] [facility] PROGRESS HNO ID: [id number] Author: Yanet Rivera Service: Thoracic Surgery Author Type: Physician Type: Progress Notes Filed: 01/07/2020 10:37 AM Note Text: Patient seen again this AM and evaluated/examined. Findings of preop W/U and eval so far all reviewed with her. [place] echo reviewed with cardiology here as well [...] Sunday as tentatively scheduled. Normal [facility] RBC Productson 01-07-2020 Xmatch Unit 1 see below [facility] Comment on above: Result Comment: Comp atible Performed By: #### T ROP #### [place] [address] Xmatch Unit 2 see below [facility] Comment on above: Result Comment: Comp atible Performed By: #### T ROP #### [place] [address] Type and Screenon 01-07-2020 ABO group Nom (Bld) O [facility] Comment on above: Performed By: #### T ROP #### [place] [address] Comment See Below [facility] Comment on above: Result Comment: Scre en &/or Xmatch expires in 3 days at 12 midnight. Redraw patient at that time. Performed By: #### T ROP #### [place] [address] RH Type Positive [facility] Comment on above: Performed By: #### T ROP #### [facility] [address] [place], [place] [address] Activated PTTon 01-06-2020 aPTT Coag (Bld) [Time] 56.7 s High 23.0-32.4 [facility] Comment on above: Result [...] laboratory APTT reagent in use throughout the [facility]. Performed By: #### T ROP #### [address] [address] CONSULT PROGon 01-06-2020 CONSULT PROG HNO ID: [id number] Author: Ann Echeverria Service: Endocrinology Author Type: [...] 30 years ago. ?H/o CAD and remote SD now admitted with NSTEMI who is found [...] January 06, 2020 TIME: 1:54 PM PAGER: [phone] Normal [facility] CONSULT PROG HNO ID: [id number] Author: Melisa Harkins) DAYANA Reza Service: Cardiovascular Surgery Author Type: Nurse Practitioner Type: Consult Progress Note Filed: 01/08/2020 10:58 AM Note Text: CTVS Surgery Pre-Op Open Heart Check List Patient Info: Cici Woodward 1935 84 year old Bactrim [Sulfamethoxazole-Trime thoprim]; Codeine; Prednisone; Statins [Hwaskwz-Oqr-Uis Reductase Inhibitors]; Ultram [Tramadol Hcl] HPI: This [...] later time), STEMI protocol was activated in [place] and patient was given Hep Gtt and Brilinta prior undergoing HC. HC revealed severe MV CAD. Echo performed in [place] on showed: Normal LV size with moderate segmental systolic dysfunction, EF 30%. 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 There is also a 2+MR (no valvular mechanism mentioned) noted without other valvular lesions mentioned. She was recommended to be transferred to [facility] for CABG evaluation. This is a 84 yof who is found to have NSTEMI with PMH of CAD, SD s/p angioplasty (30 yrs ago), T2DM on insulin, HTN, HLD, CVA 5 yrs ago (no known etiology) with mild left side deficit residual complicated with occasional falls, and CKD 2-3. She also has an intracranial meningioma s/p gamma knife (this was dx in 10/2008 via MRI to evaluate DZ. GKRS was 08/14/2013), and follows physician [facility] at [facility] with surveillance brain scan now tapered down to every 4 years as the size of the meningioma has been reducing. She is a lifelong nonsmoker without no known COPD, no CHF or cardiac arrhythmia and known to patient. She denies recurrence SD since 32 yo ago and has not [...] cancers. FH:+CAD in both parents, both from [place] in 70-80s. SH: lifelong non smoker, no [...] 8% CARE TEAM: Cardiac Surgeon: Dr. Rivera Community Health Agent: Dr. Noel PCP: Dr. Negro Other Providers: [...] with VKA drugs, such as warfarin, the [place] 2012 Guideline recommends [...] 12/25/2019 6.0 4.5 - 8.0 Final Specific [place], Ur Date Value Ref Range Status 12/25/2019 [...] Akinetic. Mid?inferior: Akinetic. Mid?inferior septal: Akinetic. Anterior [place]: Hypokinetic. Inferior [place]: Dyskinetic. Lateral [place]: Hypokinetic. Septal apex: Dyskinetic. Right ventricle: Normal [...] Vascular surgery No Other No Melisa Reza APRN.DAYANA Normal [facility] CONSULT PROG HNO ID: [id number] Author: Melisa Harkins) DAYANA Reza Service: Cardiovascular [...] later time), STEMI protocol was activated in [place] and patient was given Hep Gtt and Brilinta prior undergoing HC. HC revealed severe MV CAD. Echo performed in [place] on showed: Normal LV size with moderate segmental systolic dysfunction, EF 30%. 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 There is also a 2+MR (no valvular mechanism mentioned) noted without other valvular lesions mentioned. She was recommended to be transferred to [facility] for CABG evaluation. This is a 84 yof who is found to have NSTEMI with PMH of CAD, SD s/p angioplasty (30 yrs ago), T2DM on insulin, HTN, HLD, CVA 5 yrs ago (no known etiology) with mild left side deficit residual complicated with occasional falls, and CKD 2-3. She also has an intracranial meningioma s/p gamma knife (this was dx in 10/2008 via MRI to evaluate DZ. GKRS was 08/14/2013), and follows physician [facility] at [facility] with surveillance brain scan now tapered down to every 4 years as the size of the meningioma has been reducing. She is a lifelong nonsmoker without no known COPD, no CHF or cardiac arrhythmia and known to patient. She denies recurrence SD since 32 yo ago and has not [...] cancers. FH:+CAD in both parents, both from [place] in 70-80s. SH: lifelong non smoker, no [...] Neurologic/Psychiatric: oriented to time, place and person, bus starter strength with 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 on the left [...] January 06, 2020 TIME: 12:23 PM PAGER/CONTACT #:[phone] [facility] CONSULT PROG HNO ID: [id number] Author: Nettie Cheng CNP Service: Cardiovascular Disease [...] eval after presenting as a STEMI to [place]. ? She had been having URI sxs for the last week and was being treated with a 10 day course of amoxicillin. She had associated dry cough and intermittent SOB. Over the last 3 days she's been having bilateral arm pain, that radiated to her chest. She described it as a pressure. She presented to the [place] ED. EKG done in the emergency room revealed Q waves in III and aVF along with ST elevation. It was felt that patient was presenting late with acute ST elevation SD but due to ongoing chest pain that was about 2/10 in intensity she was evaluated and brought emergently to the cardiac Anti Air War[employer] Operations Officer for coronary angiography. Coronary angiography revealed multivessel coronary artery disease with MARTIN-3 flow in all the vessels and she was transferred to [facility] for CABG evaluation. Of note, she takes Plavix at home for her hx CVA and did receive Brilinta in the ED . Transthoracic echocardiogram done at [place] showed left ventricular ejection fraction of 30%, [...] sign off at this time SIGNATURE:Nettie Cheng APRN.MACHINE BOSS PAGER: DATE / TIME of SERVICE: January 05, 2020 11:13 AM This note is not final until Authenticated by responsible provider. Normal [facility] Hemogram/Diffon 01-06-2020 Abs Immature Grans 0.08 thou/cmm High 0.00-0.05 [facility] Comment on above: Performed By: #### T ROP #### [place] [address] Abs Neut (ANC) 4.02 thou/cmm Normal 1.56-6.13 [facility] Comment on above: Performed By: #### T ROP #### [place] [address] Abs. Baso 0.03 thou/cmm Normal 0.01-0.08 [facility] Comment on above: Performed By: #### T ROP #### [place] [address] Abs. [place] 0.85 thou/cmm High 0.27-0.70 [facility] Comment on above: Performed By: #### T ROP #### [place] [address] Basophils/100 WBC (Bld) 0.3 % Normal [facility] Comment on above: Performed By: #### T ROP #### [place] [address] Eosinophils (Bld) [#/Vol] 0.11 thou/cmm Normal 0.00-0.31 [facility] Comment on above: Performed By: #### T ROP #### [facility] [address] [place], [place] [address] Eosinophils/100 WBC (Bld) 1.2 % Normal [facility] Comment on above: Performed By: #### T ROP #### [facility] [address] [place], [place] [address] Immature Grans 0.90 % Normal [facility] Comment on above: Performed By: #### T ROP #### [facility] [address] [place], [place] [address] Lymphocytes (Bld) [#/Vol] 3.96 thou/cmm High 1.18-3.74 [facility] Comment on above: Performed By: #### T ROP #### [facility] [address] [place], [place] [address] Lymphocytes/100 WBC (Bld) 43.8 % Normal [facility] Comment on above: Performed By: #### T ROP #### [facility] [address] [place], [place] [address] Monocytes/100 WBC (Bld) 9.4 % Normal [facility] Comment on above: Performed By: #### T ROP #### [facility] [address] [place], [place] [address] Seg Neutrophil 44.4 % Normal [facility] Comment on above: Performed By: #### T ROP #### [facility] [address] [place], [place] [address] Erythrocyte distribution width (RBC) [Ratio] 13.7 % Normal 11.7-14.4 [facility] Comment on above: Performed By: #### T ROP #### [facility] [address] [place], [place] [address] Hematocrit (Bld) [Volume fraction] 32.7 % Low 34.1-44.9 [facility] Comment on above: Performed By: #### T ROP #### [facility] [address] [place], [place] [address] Hemoglobin (Bld) [Mass/Vol] 10.9 g/dL Low 11.2-15.7 [facility] Comment on above: Performed By: #### T ROP #### [facility] [address] [place] [address] MCH (RBC) [Entitic mass] 30.6 pg Normal 25.6-32.2 [facility] Comment on above: Performed By: #### T ROP #### [facility] [address] [place] [address] MCHC (RBC) [Mass/Vol] 33.3 % Normal 31.6-34.8 [facility] Comment on above: Performed By: #### T ROP #### [facility] [address] [place] [address] MCV (RBC) [Entitic vol] 91.9 fL Normal 79.4-94.8 [facility] Comment on above: Performed By: #### T ROP #### [facility] [address] [place] [address] Platelet mean volume (Bld) [Entitic vol] 11.6 fL Normal 9.4-12.3 [facility] Comment on above: Performed By: #### T ROP #### [facility] [address] [place] [address] Platelets (Bld) [#/Vol] 301 thou/cmm Normal 182-369 [facility] Comment on above: Performed By: #### T ROP #### [facility] [address] [place] [address] RBC (Bld) [#/Vol] 3.56 mil/cmm Low 3.93-5.22 [facility] Comment on above: Performed By: #### T ROP #### [facility] [address] [place] [address] RDW SD 45.9 fl Normal 36.4-46.3 [facility] Comment on above: Performed By: #### T ROP #### [facility] [address] [place] [address] WBC (Bld) [#/Vol] 9.05 thou/cmm Normal 3.98-10.04 [facility] Comment on above: Performed By: #### T ROP #### [facility] [address] [place] [address] PROGRESSon 2020 PROGRESS HNO ID: [id number] Author: Yante Rivera Service: Thoracic Surgery Author Type: Physician Type: Progress Notes Filed: 01/06/2020 4:58 PM Note Text: Asked to assume cardiac surgical care by Chet. Cath films reviewed. W/U eval in progress and patient seen briefly and legs not so great looking at 1st glance. Informed patient she is tentatively on OR schedule for Sunday AM. P-will see again in AM with BILLET STRAIGHTENER. Teresita [facility] PROGRESS HNO ID: [id number] Author: Cesar Burroughs Service: Nephrology Author Type: [...] Recent Labs 01/06/20 0545 CO2 20* Specific [place], Ur Date Value Ref Range Status 12/25/2019 [...] ongoing SHA very high risk of needing GARNISHMENT SPECIALIST Will not recommend CABG until cr settles PRN diureis ok , if SOB or volume issues develop Avoid all renal toxins Avoid BP shifts repalce K Trend the cr Avoid all renal toxins We will follow closely Normal [facility] PROGRESS HNO ID: [id number] Author: Chandan Tavarez Service: Hospital Medicine Author Type: Physician Type: Progress Notes Filed: 01/06/2020 10:14 AM Note Text: DEPARTMENT OF HOSPITAL MEDICINE PROGRESS NOTE SERVICE DATE: 01/06/2020 SERVICE TIME: 10:06 AM Hospital Medicine/Primary Attending: Chandan Tavarez MD NIGHT AND WEEKEND COVERAGE: From 7am - 7pm, please call [phone] After 7pm, please call cross cover pager #[phone] Subjective INTERVAL HPI: Reports feeling better. Denied [...] 1800 vte non-pharmacologic prophylaxis - none indicated (mn,ms) 01/03/20 1800 vte current anticoag therapy ([place], [place]) 01/03/20 1800 activity - mobilize patient ([place], [place]) VTE Prophylaxis: VTE prophylaxis appropriate Disposition: Home Plan of care discussed with: Patient SIGNATURE: Chandan Tavarez MD PATIENT NAME: Cici Woodward DATE: January 06, 2020 TIME: 10:06 AM PAGER/CONTACT #: [phone] Normal [facility] Renal Panelon 01-06-2020 Creatinine [Mass/Vol] 1.87 mg/dL High 0.51-0.95 [facility] [employer] Comment on above: Result Comment: Use of this assay is not recommended for patients undergoing treatment with phenindione, due to the potential for falsely depressed results. Performed By: #### T ROP #### [facility] [address] [place], [place] [address] Phosphate [Mass/Vol] 3.4 mg/dL Normal 2.5-4.9 [facility] Comment on above: Performed By: #### T ROP #### [facility] [address] [place], [place] [address] Albumin [Mass/Vol] 2.5 g/dL Low 3.4-5.0 [facility] Comment on above: Performed By: #### T ROP #### [facility] [address] [place], [place] [address] Anion gap [Moles/Vol] 12 mmol/L Normal 8-16 [facility] Comment on above: Performed By: #### T ROP #### [facility] [address] [place], [place] [address] CO2 [Moles/Vol] 20 mmol/L Low 21-32 [facility] Comment on above: Performed By: #### T ROP #### [facility] [address] [place], [place] [address] Urea nitrogen [Mass/Vol] 48 mg/dL High 7-18 [facility] Comment on above: Performed By: #### T ROP #### [facility] [address] [place], [place] [address] Calcium [Mass/Vol] 8.2 mg/dL Low 8.5-10.1 [facility] Comment on above: Performed By: #### T ROP #### [facility] [address] [place], [place] [address] Glucose [Mass/Vol] 148 mg/dL High 70-99 [facility] Comment on above: Performed By: #### T ROP #### [facility] [address] [place], [place] [address] Chloride [Moles/Vol] 111 mmol/L High 98-107 [facility] Comment on above: Performed By: #### T ROP #### [facility] [address] [place], [place] [address] Potassium [Moles/Vol] 3.7 mmol/L Normal 3.5-5.1 [facility] Comment on above: Performed By: #### T ROP #### [facility] [address] [place] [address] Sodium [Moles/Vol] 139 mmol/L Normal 136-145 [facility] Comment on above: Performed By: #### T ROP #### [facility] [address] [place] [id number] ALLIED HEALTHon 01-05-2020 ALLIED HEALTH HNO ID: [id number] Author: Malinda Ochoa) RITA Zurita Service: Cardiac [...] 05, 2020 TIME: 2:47 PM PAGER/CONTACT #: [phone] Normal [facility] Activated PTTon 01-05-2020 aPTT Coag (Bld) [Time] 60.8 s High 23.0-32.4 [facility] Comment on above: Result [...] laboratory APTT reagent in use throughout the [facility]. Performed By: #### P T #### [facility] [address] [place] [id number] Basic Panelon 01-05-2020 Creatinine [Mass/Vol] 2.16 mg/dL High 0.51-0.95 [facility] Comment on above: Result Comment: Use of this assay is not recommended for patients undergoing treatment with phenindione, due to the potential for falsely depressed results. Performed By: #### P T #### [facility] [address] [place], [place] [address] Anion gap [Moles/Vol] 11 mmol/L Normal 8-16 [facility] Comment on above: Performed By: #### P T #### [facility] [address] [place], [place] [address] CO2 [Moles/Vol] 23 mmol/L Normal 21-32 [facility] Comment on above: Performed By: #### P T #### [facility] [address] [place], [place] [address] Glucose [Mass/Vol] 145 mg/dL High 70-99 [facility] Comment on above: Performed By: #### P T #### [facility] [address] [place], [place] [address] Urea nitrogen [Mass/Vol] 46 mg/dL High 7-18 [facility] Comment on above: Performed By: #### P T #### [facility] [address] [place], [place] [address] Calcium [Mass/Vol] 8.6 mg/dL Normal 8.5-10.1 [facility] Comment on above: Performed By: #### P T #### [facility] [address] [place], [place] [address] Chloride [Moles/Vol] 106 mmol/L Normal 98-107 [facility] Comment on above: Performed By: #### P T #### [facility] [address] [place], [place] [address] Potassium [Moles/Vol] 3.2 mmol/L Low 3.5-5.1 [facility] Comment on above: Performed By: #### P T #### [facility] [address] [place], [place] [address] Sodium [Moles/Vol] 137 mmol/L Normal 136-145 [facility] Comment on above: Performed By: #### P T #### [address] [address] CASE MGT INIT LIGIAon 2019 CASE MGT JORGE STRONG HNO ID: [id number] Author: Patience (Rn) RITA Christy Service: Care Management Author Type: Registered Nurse Type: Care Mgt Initial Assessment Filed: 01/05/2020 4:05 PM Note Text: CARE MANAGEMENT: ASSESSMENT AND DISCHARGE PLAN SERVICE DATE: January 05, 2020 SERVICE TIME: 4:02 PM PRIMARY CARE PHYSICIAN: Anju Pearce MD ADMISSION STATUS: Inpatient Needs Prior to Discharge: To Be Determined MEDICAL: MEDICARE A AND B Patient/Storage Management Consultant Stated Goals: To return home to life as it was Health Insurance: Medicare;Comment([place] supplement) Health Issues Impacting Discharge Plan: None Last Discharge Date: 08/14/13 Is this Within the Past 30 days? Last discharge within 30 days: No Advance Directive: Current Advance Directive: Health Care Power of Value Analyst In Chart: No Forest Science Professor Attempted to Assist with AD Completion: No [...] Information Primary Emergency Contact: Chele Woodward Address: [address] [place] [address] Relation: Spouse Secondary Emergency Contact: Araceli Carlos Address: [address] [place] [address] [facility] Mobile Relation: Daughter Supportive Patient [...] Mostly I feel financially burdened by my [id number] expenses for my prescription medication:: 0 - [...] she lives at home with her indept DATA ANALYTICS CHIEF SCIENTIST. Await card surg eval for possible CABG. Will follow clinical progress. SIGNATURE: Patience Christy RN PATIENT NAME: Cici Woodward DATE: January 05, 2020 TIME: 4:02 PM PAGER/CONTACT #: [phone] [facility] CONSULT PROGon 01-05-2020 CONSULT PROG HNO ID: [id number] Author: Nettie Cheng CNP Service: Cardiovascular Disease [...] eval after presenting as a STEMI to [place]. ? She had been having URI sxs for the last week and was being treated with a 10 day course of amoxicillin. She had associated dry cough and intermittent SOB. Over the last 3 days she's been having bilateral arm pain, that radiated to her chest. She described it as a pressure. She presented to the [place] ED. EKG done in the emergency room revealed Q waves in III and aVF along with ST elevation. It was felt that patient was presenting late with acute ST elevation [place] but due to ongoing chest pain that was about 2/10 in intensity she was evaluated and brought emergently to the cardiac Anti Air Warfare Operations Officer for coronary angiography. Coronary angiography revealed multivessel coronary artery disease with MARTIN-3 flow in all the vessels and she was transferred to [facility] for CABG evaluation. Of note, she takes Plavix at home for her hx CVA and did receive Brilinta in the ED . Transthoracic echocardiogram done at [place] showed left ventricular ejection fraction of 30%, [...] Authenticated by responsible provider. Normal [facility] CONSULT PROG HNO ID: [id number] Author: Ann Echeverria Service: Endocrinology Author Type: [...] 30 years ago. ?H/o CAD and remote SD now admitted with NSTEMI who is found [...] January 05, 2020 TIME: 8:40 AM PAGER: [phone] Normal [facility] CT CHEST WO IVCONon 01-05-20 CT CHEST WO IVCON * * *Final Report* * * DATE OF EXAM: Jan 05 2020 1:48PM [facility] 0541 - CT CHEST WO IVCON [...] exam could be obtained in 12 months. Assistant Women'S Tennis Coach: KURT Transcribe Date/Time: Jan 05 2020 2:13P Dictated by : ALEJANDRINA MINER MD This examination was interpreted and the report reviewed and electronically signed by: ALEJANDRINA MINER MD on Jan 05 2020 2:22PM EST Normal [facility] Hemogram/Diffon 01-05-2020 Interpreted by See below Normal [facility] Comment on above: Result Comment: Miriam Loving M.D., Pathologist Performed By: #### P T #### [place] [address] Abs Immature Grans 0.08 thou/cmm High 0.00-0.05 [facility] Comment on above: Performed By: #### P T #### [place] [address] Abs Neut (ANC) 5.52 thou/cmm Normal 1.56-6.13 [facility] Comment on above: Performed By: #### P T #### [place] [address] Abs. Baso 0.05 thou/cmm Normal 0.01-0.08 [facility] Comment on above: Result Comment: Smea r scanned; tech agrees with automated differential Performed By: #### P T #### [place] [address] Abs. [place] 1.00 thou/cmm High 0.27-0.70 [facility] Comment on above: Performed By: #### P T #### [place] [address] Basophils/100 WBC (Bld) 0.4 % Normal [facility] Comment on above: Performed By: #### P T #### [place] [address] Eosinophils (Bld) [#/Vol] 0.09 thou/cmm Normal 0.00-0.31 [facility] Comment on above: Performed By: #### P T #### [place] [address] Eosinophils/100 WBC (Bld) 0.8 % Normal [facility] Comment on above: Performed By: #### P T #### [facility] [address] [place], [place] [address] Immature Grans 0.70 % Normal [facility] Comment on above: Performed By: #### P T #### [facility] [address] [place], [place] [address] Lymphocytes (Bld) [#/Vol] 5.07 thou/cmm High 1.18-3.74 [facility] Comment on above: Performed By: #### P T #### [facility] [address] [place], [place] [address] Lymphocytes/100 WBC (Bld) 42.9 % Normal [facility] Comment on above: Performed By: #### P T #### [facility] [address] [place], [place] [address] Monocytes/100 WBC (Bld) 8.5 % Normal [facility] Comment on above: Performed By: #### P T #### [facility] [address] [place] [address] Seg Neutrophil 46.7 % Normal [facility] Comment on above: Performed By: #### P T #### [facility] [address] [place] [address] Erythrocyte distribution width (RBC) [Ratio] 13.2 % Normal 11.7-14.4 [facility] Comment on above: Performed By: #### P T #### [facility] [address] [place] [address] Hematocrit (Bld) [Volume fraction] 35.9 % Normal 34.1-44.9 [facility] Comment on above: Performed By: #### P T #### [facility] [address] [place], [place] [address] Hemoglobin (Bld) [Mass/Vol] 12.0 g/dL Normal 11.2-15.7 [facility] Comment on above: Performed By: #### P T #### [facility] [address] [place], [place] [address] MCH (RBC) [Entitic mass] 30.2 pg Normal 25.6-32.2 [facility] Comment on above: Performed By: #### P T #### [facility] [address] [place] [address] MCHC (RBC) [Mass/Vol] 33.4 % Normal 31.6-34.8 [facility] Comment on above: Performed By: #### P T #### [facility] [address] [place] [address] MCV (RBC) [Entitic vol] 90.2 fL Normal 79.4-94.8 [facility] [facility] Comment on above: Performed By: #### P T #### [facility] [address] [place] [address] Platelet mean volume (Bld) [Entitic vol] 11.5 fL Normal 9.4-12.3 [facility] Comment on above: Performed By: #### P T #### [place] [address] Platelets (Bld) [#/Vol] 335 thou/cmm Normal 182-369 [facility] Comment on above: Performed By: #### P T #### [facility] [address] [place] [address] RBC (Bld) [#/Vol] 3.98 mil/cmm Normal 3.93-5.22 [facility] Comment on above: Performed By: #### P T #### [facility] [address] [place] [address] RDW SD 44.1 fl Normal 36.4-46.3 [facility] Comment on above: Performed By: #### P T #### [facility] [address] [place] [address] WBC (Bld) [#/Vol] 11.82 thou/cmm High 3.98-10.04 [facility] Comment on above: Performed By: #### P T #### [place] [address] PLAN OF CAREon 01-05-2020 PLAN OF CARE HNO ID: [id number] Author: Melisa Reza CNP Service: Cardiovascular Surgery [...] on her Echo and HC discs from [place]. We will present her case tomorrow at [...] with more than 50% of the total zkii-dl-zerz time of the visit in counseling / coordination of care. Melisa Reza APRN.[facility] PROGRESSon 01-05-2020 PROGRESS HNO ID: [id number] Author: Cesar Burroughs Service: Nephrology Author Type: [...] Recent Labs 01/05/20 0354 CO2 23 Specific [place], Ur Date Value Ref Range Status 12/25/2019 [...] ongoing SHA very high risk of needing GARNISHMENT SPECIALIST Will not recommend CABG until cr settles Avoid all renal toxins Avoid BP shifts repalce K Trend the cr Avoid all renal toxins We will follow closely Normal [facility] PROGRESS HNO ID: [id number] Author: Chandan Tavarez Service: Hospital Medicine Author Type: Physician Type: Progress Notes Filed: 01/05/2020 12:52 PM Note Text: DEPARTMENT OF HOSPITAL MEDICINE PROGRESS NOTE SERVICE DATE: 01/05/2020 SERVICE TIME: 12:44 PM Hospital Medicine/Primary Attending: Chandan Tavarez MD NIGHT AND WEEKEND COVERAGE: From 7am - 7pm, please call [phone] After 7pm, please call cross cover pager #[phone] Subjective INTERVAL HPI: Reports that she is [...] 1800 vte non-pharmacologic prophylaxis - none indicated (mn,ms) 01/03/20 1800 vte current anticoag therapy (mn,ms) 01/03/20 1800 activity - mobilize patient ([place], [place]) VTE Prophylaxis: VTE prophylaxis appropriate Disposition: Home Plan of care discussed with: Patient SIGNATURE: Chandan Tavarez MD PATIENT NAME: Cici Woodward DATE: January 05, 2020 TIME: 12:44 PM PAGER/CONTACT #: [phone] Normal [facility] US CAROTID BILon 01-05-2020 Bilirubin.direct [Mass/Vol] * * *Final Report* * * DATE OF EXAM: Jan 05 2020 12:57PM A2U 1077 - US CAROTID GIOVANY / PROCEDURE REASON: cva * * * * Physician Interpretation * * * * Non-Invasive Vascular Laboratory [facility] Carotid Duplex Bilateral/Complete Date of service/time: [...] Interpreting physician: Samuel Mendosa MD Final RP Assistant Women'S Tennis Coach: BENEDICTO Transcribe Date/Time: Jan 05 2020 8:46A Dictated by : SAMUEL MENDOSA MD This examination was interpreted and the report reviewed and electronically signed by: SAMUEL MENDOSA MD on Jan 06 2020 10:42AM EST Normal [facility] Activated PTTon 01-04-2020 aPTT Coag (Bld) [Time] 53.3 s High 23.0-32.4 [facility] Comment on above: Result [...] laboratory APTT reagent in use throughout the [facility]. Performed By: #### P T #### [place] [address] aPTT Coag (Bld) [Time] 53.2 s High 23.0-32.4 [facility] Comment on above: Result [...] laboratory APTT reagent in use throughout the [facility]. Performed By: #### A PTT #### [place] [address] aPTT Coag (Bld) [Time] 38.5 s High 23.0-32.4 [facility] Comment on above: Result [...] laboratory APTT reagent in use throughout the [facility]. Performed By: #### A PTT #### [place] [address] Basic Panelon 01-04-2020 Creatinine [Mass/Vol] 1.43 mg/dL High 0.51-0.95 [facility] Comment on above: Result Comment: Use of this assay is not recommended for patients undergoing treatment with phenindione, due to the potential for falsely depressed results. Performed By: #### A PTT #### [place] [address] Anion gap [Moles/Vol] 14 mmol/L Normal 8-16 [facility] Comment on above: Performed By: #### A PTT #### [place] [address] Calcium [Mass/Vol] 8.8 mg/dL Normal 8.5-10.1 [facility] Comment on above: Performed By: #### A PTT #### [place] [address] CO2 [Moles/Vol] 20 mmol/L Low 21-32 [facility] Comment on above: Performed By: #### A PTT #### [place] [address] Glucose [Mass/Vol] 202 mg/dL High 70-99 [facility] Comment on above: Performed By: #### A PTT #### [facility] [address] [place], [place] [address] Urea nitrogen [Mass/Vol] 37 mg/dL High 7-18 [facility] Comment on above: Performed By: #### A PTT #### [facility] [address] [place], [place] [address] Chloride [Moles/Vol] 105 mmol/L Normal 98-107 [facility] Comment on above: Performed By: #### A PTT #### [facility] [address] [place], [place] [address] Potassium [Moles/Vol] 4.5 mmol/L Normal 3.5-5.1 [facility] Comment on above: Performed By: #### A PTT #### [facility] [address] [place], [place] [address] Sodium [Moles/Vol] 134 mmol/L Low 136-145 [facility] Comment on above: Performed By: #### A PTT #### [facility] [address] [place], [place] [address] CONSULTon 01-04-2020 CONSULT HNO ID: [id number] Author: Cesar Burroughs Service: Nephrology Author Type: Physician Type: Consults Filed: 01/05/2020 10:31 AM Note Text: [facility] - Consultation PATIENT NAME: CICI WOODWARD I CSN: [id number] DATE OF : 1935 SEX/AGE: F/84 PATIENT [place]: [place] [facility] [place] LOCATION: [id number] DATE OF SERVICE: 01/04/2020 REFERRING PHYSICIAN: ISIDRO WOLF REASON FOR EVALUATION: Acute kidney injury on top of chronic kidney disease, stage [address]-elevation myocardial infarction. HISTORY OF PRESENT ILLNESS: The patient is an 84-year-old lady, who denies any pre-existing history of kidney disease. Her baseline creatinine appears to be around 1.3 to 1.4. She presented to the hospital in [place], complaining of weakness, tiredness, cough, and shortness [...] and she was brought to the cardiac mobile lab technician. Her coronary angiography revealed multivessel coronary [...] angioplasty [address] [facility]. 4. History of internal hemorrhoids. 5. [...] 75 a day. 10.Claritin 10 mg daily. 11.[place]-3 fatty acids 2 capsules daily. 12.Calcium carbonate [...] 3. I explained to her that the [facility] Kavya criteria for risk of acute kidney [...] current risk at this point of time. Cesra Burroughs MD DD:anthony /[id number] Normal [facility] CONSULT HNO ID: [id number] Author: Eileen Jones Service: Endocrinology Author Type: Physician Type: Consults Filed: 01/05/2020 12:46 PM Note Text: [facility] - Consultation PATIENT NAME: CICI WOODWARD I CSN: [id number] DATE OF : 1935 SEX/AGE: F/84 PATIENT TYPE: I HOSP [facility] [place] LOCATION: [id number] DATE OF SERVICE: 01/04/2020 TIME OF SERVICE: 10:13 AM REFERRING PHYSICIAN: ISIDRO WOLF REASON FOR CONSULTATION: Diabetes management. This is Dr. Jones covering for Dr. Echeverria. HISTORY: The patient is an 84-year-old female, who was transferred from [place]. She was admitted there with chest pain and was found to have coronary artery disease. Patient has history of angioplasty 30 years ago. She had cardiac catheterization and was transferred to [facility]. Regarding diabetes, patient has history of [...] of hypertension, history of hyperlipidemia, history of SD 30 years ago when patient had angioplasty, [...] patient tomorrow. Eileen Jones MD Endocrinology SM:modl /[id number] [facility] CONSULT HNO ID: [id number] Author: Eileen Jones Service: Endocrinology Author Type: Physician Type: Consults Filed: 01/04/2020 10:11 AM Note Text: I have reviewed the patient's medical record in detail. Consult note dictated. See new insulin orders. Eileen Jones MD [facility] CONSULT HNO ID: [id number] Author: Cesar Burroughs Service: Nephrology Author Type: Physician Type: Consults Filed: 01/04/2020 3:02 PM Note Text: Chart reviwed Thanks full consult to follow [id number] SHA ON CKD 3 Trend the cr post the IV Contrast Follow the renal function Decrease ISABELLA-I and hold If cr > 30 % increase over baseline Avoid overt BP shifts At this time Risk of SHA needing GARNISHMENT SPECIALIST post the CABG is about 9 % [...] We will follow closely- Normal [facility] Creatinine,Urineon 0 Creatinine,Urine 181.0 mg/dL Normal [facility] Comment on above: Result Comment: Use of this assay is not recommended for patients undergoing treatment with phenindione, due to the potential for falsely depressed results. Performed By: #### P T #### [place] [id number] Ferritinon 01-04-2020 Ferritin [Mass/Vol] 205.90 ng/mL Normal 8.00-252.00 [facility] Comment on above: Performed By: #### A PTT #### [place] [address] Folateon 01-04-2020 Folate 68.70 ng/mL High 3.10-17.50 [facility] Comment on above: Performed By: #### A PTT #### [facility] [address] [place] [address] Hemogram/Diffon 01-04-2020 Abs Immature Grans 0.06 thou/cmm High 0.00-0.05 [facility] Comment on above: Performed By: #### A PTT #### [place] [address] Abs Neut (ANC) 7.01 thou/cmm High 1.56-6.13 [facility] Comment on above: Performed By: #### A PTT #### [place] [address] Abs. Baso 0.04 thou/cmm Normal 0.01-0.08 [facility] Comment on above: Result Comment: Smea r scanned; tech agrees with automated differential Performed By: #### A PTT #### [place] [address] Abs. [place] 0.87 thou/cmm High 0.27-0.70 [facility] Comment on above: Performed By: #### A PTT #### [place] [address] Basophils/100 WBC (Bld) 0.3 % Normal [facility] Comment on above: Performed By: #### A PTT #### [place] [address] Eosinophils (Bld) [#/Vol] 0.05 thou/cmm Normal 0.00-0.31 [facility] Comment on above: Performed By: #### A PTT #### [place] [address] Eosinophils/100 WBC (Bld) 0.4 % Normal [facility] Comment on above: Performed By: #### A PTT #### [place] [address] Immature Grans 0.50 % Normal [facility] Comment on above: Performed By: #### A PTT #### [place] [address] Lymphocytes (Bld) [#/Vol] 3.93 thou/cmm High 1.18-3.74 [facility] Comment on above: Performed By: #### A PTT #### [facility] [address] [place], [place] [address] Lymphocytes/100 WBC (Bld) 32.9 % Normal [facility] Comment on above: Performed By: #### A PTT #### [facility] [address] [place], [place] [address] Monocytes/100 WBC (Bld) 7.3 % Normal [facility] Comment on above: Performed By: #### A PTT #### [facility] [address] [place], [place] [address] Seg Neutrophil 58.6 % Normal [facility] Comment on above: Performed By: #### A PTT #### [facility] [address] [place], [place] [address] Erythrocyte distribution width (RBC) [Ratio] 13.2 % Normal 11.7-14.4 [facility] Comment on above: Performed By: #### A PTT #### [facility] [address] [place], [place] [address] Hematocrit (Bld) [Volume fraction] 36.0 % Normal 34.1-44.9 [facility] Comment on above: Performed By: #### A PTT #### [facility] [address] [place], [place] [address] Hemoglobin (Bld) [Mass/Vol] 12.4 g/dL Normal 11.2-15.7 [facility] Comment on above: Performed By: #### A PTT #### [facility] [address] [place], [place] [address] MCH (RBC) [Entitic mass] 30.8 pg Normal 25.6-32.2 [facility] Comment on above: Performed By: #### A PTT #### [facility] [address] [place], [place] [address] MCHC (RBC) [Mass/Vol] 34.4 % Normal 31.6-34.8 [facility] Comment on above: Performed By: #### A PTT #### [address] [place], [place] [address] MCV (RBC) [Entitic vol] 89.3 fL Normal 79.4-94.8 [facility] Comment on above: Performed By: #### A PTT #### [facility] [address] [place] [address] Platelet mean volume (Bld) [Entitic vol] 11.6 fL Normal 9.4-12.3 [facility] Comment on above: Performed By: #### A PTT #### [place] [address] Platelets (Bld) [#/Vol] 333 thou/cmm Normal 182-369 [facility] Comment on above: Performed By: #### A PTT #### [place] [address] RBC (Bld) [#/Vol] 4.03 mil/cmm Normal 3.93-5.22 [facility] Comment on above: Performed By: #### A PTT #### [place] [address] RDW SD 43.2 fl Normal 36.4-46.3 [facility] Comment on above: Performed By: #### A PTT #### [place] [address] WBC (Bld) [#/Vol] 11.96 thou/cmm High 3.98-10.04 [facility] Comment on above: Performed By: #### A PTT #### [place] [address] Iron % Saturationon 01-04-20 20 Iron % Saturation 27 % Normal 20-55 [facility] Comment on above: Performed By: #### A PTT #### [place] [address] Iron Binding Cap. 292 ug/dL Normal 250-450 [facility] Comment on above: Result Comment: SPEC IMEN SLIGHTLY HEMOLYZED Performed By: #### A PTT #### [place] [address] Iron Serum 78 ug/dL Normal 50-170 [facility] Comment on above: Result Comment: SPEC IMEN SLIGHTLY HEMOLYZED Performed By: #### A PTT #### [facility] [address] [place] [address] NURSING PROGon 01-04-2020 NURSING PROG HNO ID: [id number] Author: Caio (Rn) RITA Simms Service: Nursing Author Type: Registered Nurse Type: Nursing Progress Note Filed: 01/04/2020 9:25 PM Note Text: Pt transported via wheelchair to [facility] in stable condition. Nurse notified that pt was in room, pt connected to telemetry monitoring device prior to this RN's departure. Normal [facility] PROGRESSon 01-04-2020 PROGRESS HNO ID: [id number] Author: Patience (Nini) Vitor Service: Cardiovascular Medicine Author Type: Resident Type: Progress Notes Filed: 01/04/2020 12:58 PM Note Text: CVICU Transfer Note 84 year old female PMH T2DM, CAD s/p PCI 30 years ago, CVA on Plavix who was admitted for coronary artery bypass graft eval after presenting as a STEMI to [place]. Over the last 3 days she's been having bilateral arm pain, that radiated to her chest. She presented to the [place] ED. EKG done in the emergency room revealed Q waves in III and aVF along with ST elevation. It was felt that patient was presenting late with acute ST elevation SD but due to ongoing chest pain that was about 2/10 in intensity she was evaluated and brought emergently to the cardiac Anti Air Warfare Operations Officer for coronary angiography. Coronary angiography revealed multivessel coronary artery disease with MARTIN-3 flow in all the vessels and she was transferred to [facility] for CABG evaluation. Of note, she takes Plavix at home for her hx CVA and did receive Brilinta in the ED . Transthoracic echocardiogram done at [place] showed left ventricular ejection fraction of 30%, [...] system?- asked RN to request disc from [place] Continue with home BP meds C/w po furosemide 20 mg daily, patient having adequate diuresis Nephrology consult requested by Cardiothoracic Surgery for CKD Endocrinology consult for DM Continue with heparin drip? Transferred to medical floor-SOUND accepted Patience Adler CVICU Resident Pager #[phone] Normal [facility] PROGRESS HNO ID: [id number] Author: Darryn Phillips Service: Cardiovascular Medicine Author Type: Physician Type: Progress Notes Filed: 01/04/2020 1:22 PM Note Text: [facility] CVICU PROGRESS NOTE Service Date: 01/04/2020 Service Time: 8:30 AM HPI: 84 year old female PMH T2DM, CAD s/p PCI 30 years ago, CVA on Plavix who was admitted for coronary artery bypass graft eval after presenting as a STEMI to [place]. She had been having URI sxs for the last week and was being treated with a 10 day course of amoxicillin. She had associated dry cough and intermittent SOB. Over the last 3 days she's been having bilateral arm pain, that radiated to her chest. She described it as a pressure. She presented to the [place] ED. EKG done in the emergency room revealed Q waves in III and aVF along with ST elevation. It was felt that patient was presenting late with acute ST elevation SD but due to ongoing chest pain that was about 2/10 in intensity she was evaluated and brought emergently to the cardiac Anti Air Warfare Operations Officer for coronary angiography. Coronary angiography revealed multivessel coronary artery disease with MARTIN-3 flow in all the vessels and she was transferred to [facility] for CABG evaluation. Of note, she takes Plavix at home for her hx CVA and did receive Brilinta in the ED . Transthoracic echocardiogram done at [place] showed left ventricular ejection fraction of 30%, [...] Inject 11 Units subcutaneously every morning. Insulin [place], Disposable, (BD ULTRA-FINE JOHN PEN NEEDLE) 32 [...] 01/03/2020 HDL Cholesterol 42 01/03/2020 LDL Chol, [place] 99 01/03/2020 Cholesterol, Total 208 01/03/2020 Last [...] Akinetic. Mid-Inferior: Akinetic. Mid-inferoseptal : Akinetic. Anterior [place] : Hypokinetic. Inferior [place] : Dyskinetic. Lateral [place] : Hypokinetic. Septal [place] : Dyskinetic. Right Ventricle Normal RV size. [...] - asked RN to request disc from [place] Continue with amlodipine Continue with lisinopril C/w [...] January 04, 2020 TIME: 8:30 AM Pager: [phone] This patient was seen in conjunction with [...] I24.9 Darryn Phillips MD, FACC. Pager # [phone] Normal [facility] Renal Panelon 01-04-2020 Creatinine [Mass/Vol] 1.51 mg/dL High 0.51-0.95 [facility] Comment on above: Result Comment: Use of this assay is not recommended for patients undergoing treatment with phenindione, due to the potential for falsely depressed results. Performed By: #### P T #### [facility] [address] [place], [place] [address] Phosphate [Mass/Vol] 3.0 mg/dL Normal 2.5-4.9 [facility] Comment on above: Performed By: #### P T #### [facility] [address] [place], [place] [address] Albumin [Mass/Vol] 3.1 g/dL Low 3.4-5.0 [facility] Comment on above: Performed By: #### P T #### [address] [address] Anion gap [Moles/Vol] 14 mmol/L Normal 8-16 [facility] Comment on above: Performed By: #### P T #### [address] [address] Calcium [Mass/Vol] 9.0 mg/dL Normal 8.5-10.1 [facility] Comment on above: Performed By: #### P T #### [address] [address] CO2 [Moles/Vol] 21 mmol/L Normal 21-32 [facility] Comment on above: Performed By: #### P T #### [facility] [address] [place], [place] [address] Glucose [Mass/Vol] 284 mg/dL High 70-99 [facility] Comment on above: Performed By: #### P T #### [facility] [address] [place], [place] [address] Urea nitrogen [Mass/Vol] 38 mg/dL High 7-18 [facility] Comment on above: Performed By: #### P T #### [address] [address] Chloride [Moles/Vol] 103 mmol/L Normal 98-107 [facility] Comment on above: Performed By: #### P T #### [address] [address] Potassium [Moles/Vol] 4.2 mmol/L Normal 3.5-5.1 [facility] Comment on above: Performed By: #### P T #### [address] [address] Sodium [Moles/Vol] 134 mmol/L Low 136-145 [facility] Comment on above: Performed By: #### P T #### [address] [address] TSH, 3rd generationon 2019 TSH, 3rd generation 2.180 uIU/mL Normal 0.358-3.740 [facility] Comment on above: Performed By: #### A PTT #### [place] [address] Troponin Ion 01-04-2020 Troponin I.cardiac [Mass/Vol] 33.900 ng/mL Critically high 0.015-0.045 [facility] Comment on above: Performed By: #### A PTT #### [place] [address] Troponin I.cardiac [Mass/Vol] 45.800 ng/mL Critically high 0.015-0.045 [facility] Comment on above: Result Comment: RESU LT RECHECKED Performed By: #### T ROP #### [place] [address] US KIDNEY/BLADDERon 01-04-20 20 US KIDNEY/BLADDER * * *Final Report* * * DATE OF EXAM: Jan 04 2020 9:46PM [facility] 1055 - US KIDNEY/BLADDER / PROCEDURE REASON: [...] most often seen with medical renal disease. Assistant Women'S Tennis Coach: KURT Transcribe Date/Time: Jan 04 2020 11:22P Dictated by : VISH MOYA MD This examination was interpreted and the report reviewed and electronically signed by: VISH MOYA MD on Jan 04 2020 11:23PM EST Normal [facility] Urine Proteinon 01-04-2020 Protein Ql (U) 65.5 mg/dL High 0.0-11.9 [facility] Comment on above: Performed By: #### P T #### [facility] [address] [place], [place] [address] Vitamin B12on 01-04-2020 Cobalamin (Vitamin B12) [Mass/Vol] 1106 pg/mL High 193-986 [facility] Comment on above: Performed By: #### A PTT #### [address] [address] Activated PTTon 01-03-2020 aPTT Coag (Bld) [Time] 22.3 s Low 23.0-32.4 [facility] Comment on above: Result [...] laboratory APTT reagent in use throughout the [facility]. Performed By: #### A PTT #### [facility] [address] [place] [address] CONSULTon 01-03-2020 CONSULT HNO ID: [id number] Author: Westley Rosenberg Service: Cardiac Surgery Author [...] CAD with EF 30%. She had an SD 30 years ago treated with angioplasty. She is now experiencing chest burning while trying to sleep. She denies dyspnea or orthopnea or edema. No SD or CHF in the intervening years. Risk [...] see catheterization report. Transthoracic echocardiogram done at [place] showed left ventricular ejection fraction of 30%, [...] ANGIOPLASTY 1988 - COLONOSCOP W/ OR W/O RUST SPEC 08/29/07 - LAPAROSCOPIC CHOLEYCYSTECTOMY Cholecystectomy, lap [...] Disp: 5 Pen, Rfl: 5, Taking Insulin [place], Disposable, (BD ULTRA-FINE JOHN PEN NEEDLE) 32 [...] Taking Lancing Device (LANCING DEVICE WITH LANCETS) [facility] [place], Use to check blood sugar three times [...] Inject 11 Units subcutaneously every morning. Insulin [place], Disposable, (BD ULTRA-FINE JOHN PEN NEEDLE) 32 [...] sugar Lancing Device (LANCING DEVICE WITH LANCETS) [facility] [place], Use to check blood sugar three times [...] woman with a h/o CAD and remote SD now admitted with NSTEMI who is found [...] 2020 TIME: 6:20 PM PAGER/CONTACT #: [phone] Normal [facility] HISTORY PHYSICALon 0 HISTORY PHYSICAL HNO ID: [id number] Author: Darryn Phillips Service: Cardiovascular Medicine Author Type: Physician Type: HANDP Filed: 01/05/2020 9:48 AM Note Text: [facility] Cardiovascular Intensive Care Unit HANDP SERVICE DATE: 01/03/2020 SERVICE TIME: 5:08 PM Reason for admit: ACS, multivessel coronary artery disease awaiting coronary artery bypass graft eval HPI: This is a 84 year old female who was admitted for coronary artery bypass graft eval after presenting as a STEMI to [place]. Per [place]'s notes: The patient presents to the emergency department with chest pain. Patient is an 84-year-old female with history of prior SD 30 years ago treated with angioplasty. She [...] was presenting late with acute ST elevation SD but due to ongoing chest pain that was about 2/10 in intensity she was evaluated and brought emergently to the cardiac Anti [employer] Operations Officer for coronary angiography. Because of acute on [...] see catheterization report. transthoracic echocardiogram done at [facility] showed left ventricular ejection fraction of 30%, DWMA, no valvular disease. I spoke with the supervisor international reservations at [facility] who left me a voicemail stating they sent the disc with catheterization images on it, however I could not find it in her chart, RN and community recreation programmer were also unable to find a disc [...] SINUS - Pure hypercholesterolemia - Stroke (cerebrum) ([facility]) 2013 - Type II or unspecified type diabetes mellitus without mention of complication, uncontrolled ([facility]) - Unspecified cardiovascular disease - Unspecified essential hypertension - Urgency of urination 2008 PAST SURGICAL HISTORY Procedure Laterality Date - ANGIOPLASTY 1988 - COLONOSCOP W/ OR W/O RUST SPEC 08/29/07 - LAPAROSCOPIC CHOLEYCYSTECTOMY Cholecystectomy, lap [...] Inject 11 Units subcutaneously every morning. Insulin [place], Disposable, (BD ULTRA-FINE JOHN PEN NEEDLE) 32 [...] sugar Lancing Device (LANCING DEVICE WITH LANCETS) [facility] [place] Use to check blood sugar three times [...] Echo Complete W/ Contrast 01/03/20 1330 MR#: [id number] Acct: [id number] Name: CICI WOODWARD I Rep #: [id number] : 1935 84 From: Wenceslao Mason MD Attending Dr: Maty Noel MD Status: ADM IN Ordering Dr: Gomez Noel MD Date: 01/03/20 Location: ICU Sex: F C Admitted: 01/03/20 Reason For Study: s/p SD Procedure This was a 2D Doppler, Color [...] Akinetic. Mid-Inferior: Akinetic. Mid-inferoseptal : Akinetic. Anterior [place] : Hypokinetic. Inferior [place] : Dyskinetic. Lateral [place] : Hypokinetic. Septal [place] : Dyskinetic. Right Ventricle Normal RV size. [...] - asked RN to request disc from [place] Continue with amlodipine Continue with lisinopril Start [...] January 03, 2020 TIME: 5:08 PM PAGER: [phone] This patient was seen in conjunction with [...] She was transferred for further care at [facility]. Coronary artery bypass is being contemplated. The patient received the [place] yesterday aspirin for acute management. We will [...] systolic LV heart failure. Darryn Phillips MD, [facility] Pager # [phone] [facility] HOSPon 01-03-2020 HOSP Patient:Cici Woodward I [...] mL) inpn RESTASIS 0.05 % ophthalmic emulsion [place]-3 Fatty Acids 1,250 mg cap calcium carbonate [...] Allergies: Bactrim [Sulfamethoxazole-Trime thoprim] Codeine Prednisone Statins [Gaabspc-Ooc-Mec Reductase Inhibitors] Ultram [Tramadol Hcl] Date Verified: 01/08/20 Lab Values Lab Value Units Date High Low POTA* 4.0 mEq/L 01/09/2020 5.1 3.5 ALEX* 31.4 % 01/09/2020 44.9 34.1 Progress Notes ([facility]): Luann Nieto 01/06/2020 9:46 AM Signed Pt schedule to have CABG on 01/09/20 Progress Notes (): Darryn Phillips MD 01/05/2020 9:48 AM Addendum [facility] Cardiovascular Intensive Care Unit HANDP SERVICE [...] an 84-year-old female with history of prior SD 30 years ago treated with angioplasty. She [...] was presenting late with acute ST elevation SD but due to ongoing chest pain that was about 2/10 in intensity she was evaluated and brought emergently to the cardiac Anti Air Warfare Operations Officer for coronary angiography. Because of acute on [...] see catheterization report. transthoracic echocardiogram done at [facility] showed left ventricular ejection fraction of 30%, DWMA, no valvular disease. I spoke with the supervisor international reservations at [facility] who left me a voicemail stating they sent the disc with catheterization images on it, however I could not find it in her chart, RN and community recreation programmer were also unable to find a disc [...] SINUS - Pure hypercholesterolemia - Stroke (cerebrum) ([facility]) 2013 - Type II or unspecified type diabetes mellitus without mention of complication, uncontrolled ([facility]) - Unspecified cardiovascular disease - Unspecified essential hypertension - Urgency of urination 2008 PAST SURGICAL HISTORY Procedure Laterality Date - ANGIOPLASTY 1988 - COLONOSCOP W/ OR W/O RUST SPEC 08/29/07 - LAPAROSCOPIC CHOLEYCYSTECTOMY Cholecystectomy, lap [...] Inject 11 Units subcutaneously every morning. Insulin [place], Disposable, (BD ULTRA-FINE JOHN PEN NEEDLE) 32 [...] sugar Lancing Device (LANCING DEVICE WITH LANCETS) [facility] [place], Use to check blood sugar three times [...] Echo Complete W/ Contrast 01/03/20 1330 MR#: [id number] Acct: [id number] Name: CICI WOODWARD I Rep #: [id number] : 1935 84 From: Wenceslao Mason MD Attending Dr: Maty Noel MD Status: ADM IN Ordering Dr: Gomez Noel MD Date: 01/03/20 Location: ICU Sex: F C Admitted: 01/03/20 Reason For Study: s/p SD Procedure This was a 2D Doppler, Color [...] Akinetic. Mid-Inferior: Akinetic. Mid-inferoseptal : Akinetic. Anterior [place] : Hypokinetic. Inferior [place] : Dyskinetic. Lateral [place] : Hypokinetic. Septal [place] : Dyskinetic. Right Ventricle Normal RV size. [...] January 03, 2020 TIME: 5:08 PM PAGER: [phone] This patient was seen in conjunction with [...] She was transferred for further care at [facility]. Coronary artery bypass is being contemplated. The patient received the [place] yesterday aspirin for acute management. We will [...] systolic LV heart failure. Darryn Phillips MD, [facility]. 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 She had an SD 30 years ago treated with angioplasty. She is now experiencing chest burning while trying to sleep. She denies dyspnea or orthopnea or edema. No SD or CHF in the intervening years. Risk [...] see catheterization report. Transthoracic echocardiogram done at [place] showed left ventricular ejection fraction of 30%, [...] ANGIOPLASTY 1988 - COLONOSCOP W/ OR W/O RUST SPEC 08/29/07 - LAPAROSCOPIC CHOLEYCYSTECTOMY Cholecystectomy, lap [...] Disp: 5 Pen, Rfl: 5, Taking Insulin [place], Disposable, (BD ULTRA-FINE JOHN PEN NEEDLE) 32 [...] Taking Lancing Device (LANCING DEVICE WITH LANCETS) [facility] [place], Use to check blood sugar three times [...] Inject 11 Units subcutaneously every morning. Insulin [place], Disposable, (BD ULTRA-FINE JOHN PEN NEEDLE) 32 [...] sugar Lancing Device (LANCING DEVICE WITH LANCETS) [facility] [place], Use to check blood sugar three times [...] woman with a h/o CAD and remote SD now admitted with NSTEMI who is found [...] 2020 TIME: 6:20 PM PAGER/CONTACT #: [phone] Eileen Jones MD 01/05/2020 12:46 PM Signed [facility] - Consultation PATIENT NAME: CICI WOODWARD I CSN: [id number] DATE OF : 1935 SEX/AGE: F/84 PAT[place] [facility] [place] LOC[place]: [id number] DATE OF SERVICE: 01/04/2020 TIME OF SERVICE: 10:13 AM REFERRING PHYSICIAN: ISIDRO WOLF REASON FOR CONSULTATION: Diabetes management. This is Dr. Jones covering for Dr. Echeverria. HISTORY: The patient is an 84-year-old female, who was transferred from [place]. She was admitted there with chest pain and was found to have coronary artery disease. Patient has history of angioplasty 30 years ago. She had cardiac catheterization and was transferred to [facility]. Regarding diabetes, patient has history of [...] of hypertension, history of hyperlipidemia, history of SD 30 years ago when patient had angioplasty, [...] patient tomorrow. Eileen Jones MD Endocrinology SM:modl /[id number] Cesar Burroughs MD 01/05/2020 10:31 AM Signed [facility] - Consultation PATIENT NAME: CICI WOODWARD I CSN: [id number] DATE OF : 1935 SEX/AGE: F/84 PATIENT TYPE: [place] HOSP [facility] [place] LOCATION: [id number] DATE OF SERVICE: 01/04/2020 REFERRING PHYSICIAN: ISIDRO WOLF REASON FOR EVALUATION: Acute kidney injury on top of chronic kidney disease, stage [address] of [address]-elevation myocardial infarction. HISTORY OF PRESENT ILLNESS: The patient is an 84-year-old lady, who denies any pre-existing history of kidney disease. Her baseline creatinine appears to be around 1.3 to 1.4. She presented to the hospital in [place], complaining of weakness, tiredness, cough, and shortness [...] and she was brought to the cardiac mobile lab technician. Her coronary angiography revealed multivessel coronary [...] angioplasty [address] [facility]. 4. History of internal hemorrhoids. 5. [...] 75 a day. 10.Claritin 10 mg daily. 11.[place]-3 fatty acids 2 capsules daily. 12.Calcium carbonate [...] 3. I explained to her that the [facility] Kavya criteria for risk of acute kidney [...] or concerns. I can be reached at [phone] with questions, concerns, or issues. For the [...] point of time. Cesar Burroughs MD DD:anthony /[id number] Previous Version Darryn Phillips MD 01/04/2020 1:22 PM Signed [facility] CVICU PROGRESS NOTE Service Date: 01/04/2020 Service Time: 8:30 AM HPI: 84 year old female PMH T2DM, CAD s/p PCI 30 years ago, CVA on Plavix who was admitted for coronary artery bypass graft eval after presenting as a STEMI to [facility]. She had been having URI sxs for the last week and was being treated with a 10 day course of amoxicillin. She had associated dry cough and intermittent SOB. Over the last 3 days she's been having bilateral arm pain, that radiated to her chest. She described it as a pressure. She presented to the [facility] ED. EKG done in the emergency room revealed Q waves in III and aVF along with ST elevation. It was felt that patient was presenting late with acute ST elevation SD but due to ongoing chest pain that was about 2/10 in intensity she was evaluated and brought emergently to the cardiac Anti Air Warfare Operations Officer for coronary angiography. Coronary angiography revealed multivessel coronary artery disease with MARTIN-3 flow in all the vessels and she was transferred to [facility] for CABG evaluation. Of note, she takes Plavix at home for her hx CVA and did receive Brilinta in the ED . Transthoracic echocardiogram done at [facility] showed left ventricular ejection fraction of 30%, [...] Inject 11 Units subcutaneously every morning. Insulin [place], Disposable, (BD ULTRA-FINE JOHN PEN NEEDLE) 32 [...] sugar Lancing Device (LANCING DEVICE WITH LANCETS) [facility] [place], Use to check blood sugar three times [...] Akinetic. Mid-Inferior: Akinetic. Mid-inferoseptal : Akinetic. Anterior [place] : Hypokinetic. Inferior [place] : Dyskinetic. Lateral [place] : Hypokinetic. Septal [place] : Dyskinetic. Right Ventricle Normal RV size. [...] - asked RN to request disc from [place] Continue with amlodipine Continue with lisinopril C/w [...] January 04, 2020 TIME: 8:30 AM Pager: [phone] This patient was seen in conjunction with [...] ICD9: 411.1, ICD10: I24.9 Darryn Phillips MD, [facility]. Pager # [phone] Previous Version Cesar Burroughs MD 01/04/2020 3:02 PM Addendum Chart reviwed Thanks full consult to follow [id number] SHA ON CKD 3 Trend the cr post the IV Contrast Follow the renal function Decrease ISABELLA-I and hold If cr > 30 % increase over baseline Avoid overt BP shifts At this time Risk of SHA needing GARNISHMENT SPECIALIST post the CABG is about 9 % [...] eval after presenting as a STEMI to [facility]. Over the last 3 days she's been having bilateral arm pain, that radiated to her chest. She presented to the [place] ED. EKG done in the emergency room revealed Q waves in III and aVF along with ST elevation. It was felt that patient was presenting late with acute ST elevation SD but due to ongoing chest pain that was about 2/10 in intensity she was evaluated and brought emergently to the cardiac Anti Air Warfare Operations Officer for coronary angiography. Coronary angiography revealed multivessel coronary artery disease with MARTIN-3 flow in all the vessels and she was transferred to [facility] for CABG evaluation. Of note, she takes Plavix at home for her hx CVA and did receive Brilinta in the ED 2/29. Transthoracic echocardiogram done at [place] showed left ventricular ejection fraction of 30%, [...] system?- asked RN to request disc from [place] Continue with home BP meds C/w po furosemide 20 mg daily, patient having adequate diuresis Nephrology consult requested by Cardiothoracic Surgery for CKD Endocrinology consult for DM Continue with heparin drip? [facility][phone] Caio Simms, RN, RN 01/04/2020 9:25 PM Signed Pt transported via wheelchair to [facility] in stable condition. Nurse notified that pt [...] 30 years ago. ?H/o CAD and remote SD now admitted with NSTEMI who is found [...] January 05, 2020 TIME: 8:40 AM PAGER: [phone] Nettie Rach Cheng, GLOBAL CTO.MACHINE BOSS, MACHINE BOSS 01/05/2020 12:24 PM Signed CARDIOLOGY CONSULT PROGRESS NOTE CARDIOLOGY ATTENDING: Dr. Phillips INTERVAL HISTORY: History of present illness copied and updated 84 year old female PMH T2DM, CAD s/p PCI 30 years ago, CVA on Plavix who was admitted for coronary artery bypass graft eval after presenting as a STEMI to [facility]. ? She had been having URI sxs for the last week and was being treated with a 10 day course of amoxicillin. She had associated dry cough and intermittent SOB. Over the last 3 days she's been having bilateral arm pain, that radiated to her chest. She described it as a pressure. She presented to the [place] ED. EKG done in the emergency room revealed Q waves in III and aVF along with ST elevation. It was felt that patient was presenting late with acute ST elevation SD but due to ongoing chest pain that was about 2/10 in intensity she was evaluated and brought emergently to the cardiac Anti Air Warfare Operations Officer for coronary angiography. Coronary angiography revealed multivessel coronary artery disease with MARTIN-3 flow in all the vessels and she was transferred to [facility] for CABG evaluation. Of note, she takes Plavix at home for her hx CVA and did receive Brilinta in the ED . Transthoracic echocardiogram done at [place] showed left ventricular ejection fraction of 30%, [...] date, due to Brilinta . SIGNATURE:Nettie Cheng APRN.MACHINE BOSS PAGER: DATE / TIME of SERVICE: January 05, 2020 11:13 AM This note is not final until Authenticated by responsible provider. Chandan Tavarez MD 01/05/2020 12:52 PM Signed DEPARTMENT OF HOSPITAL MEDICINE PROGRESS NOTE SERVICE DATE: 01/05/2020 SERVICE TIME: 12:44 PM Hospital Medicine/Primary Attending: Chandan Tavarez MD NIGHT AND WEEKEND COVERAGE: From 7am - 7pm, please call [phone] After 7pm, please call cross cover pager #[phone] Subjective INTERVAL HPI: Reports that she is [...] 1800 vte non-pharmacologic prophylaxis - none indicated ([place]) 01/03/20 1800 vte current anticoag therapy ([place], [place]) 01/03/20 1800 activity - mobilize patient ([place]) VTE Prophylaxis: VTE prophylaxis appropriate Disposition: Home Plan of care discussed with: Patient SIGNATURE: Chandan Tavarez MD PATIENT NAME: Cici Woodward DATE: January 05, 2020 TIME: 12:44 PM PAGER/CONTACT #: [phone] Malinda Zurita RN, RN 01/05/2020 2:47 PM [...] 05, 2020 TIME: 2:47 PM PAGER/CONTACT #: [phone] Melisa Reza APRN.DAYANA, MACHINE BOSS 01/05/2020 3:26 PM Signed CARDIOTHORACIC SURGERY PLAN OF CARE SERVICE DATE: January 05, 2020 SERVICE TIME: 3:18 PM Patient is visited today. She is resting comfortably in bed, alert and oriented ?3, denies active chest pain. Updated patient regarding the plan: we are waiting on her Echo and HC discs from [place]. We will present her case tomorrow at [...] with more than 50% of the total [id number]-vv-ocjr time of the visit in counseling / coordination of care. 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 Last discharge within 30 days: No Advance Directive: Current Advance Directive: Health Care Power of Value Analyst In Chart: No Forest Science Professor Attempted to Assist with AD Completion: No [...] Information Primary Emergency Contact: Chele Woodward Address: [address] [place] [id number] Relation: Spouse Secondary Emergency Contact: Araceli Carlos Address: [address] [place] [address] Mobile Relation: Daughter Supportive Patient Contact:: Yes [...] Mostly I feel financially burdened by my [id number] expenses for my prescription medication:: 0 - [...] she lives at home with her indept DATA ANALYTICS CHIEF SCIENTIST. Await card surg eval for possible CABG. Will follow clinical progress. SIGNATURE: Patience Christy RN PATIENT NAME: Cici Woodward DATE: January 05, 2020 TIME: 4:02 PM PAGER/CONTACT #: [phone] Cesar Burroughs MD 01/05/2020 4:47 PM Signed [...] Recent Labs 01/05/20 0354 CO2 23 Specific [place], Ur Date Value Ref Range Status 12/25/2019 [...] ongoing SHA very high risk of needing GARNISHMENT SPECIALIST Will not recommend CABG until cr settles Avoid all renal toxins Avoid BP shifts repalce K Trend the cr Avoid all renal toxins We will follow closely Chandan Tavarez MD 01/06/2020 10:14 AM Signed [facility] PROGRESS NOTE SERVICE DATE: 01/06/2020 SERVICE TIME: 10:06 AM Hospital Medicine/Primary Attending: Chandan Tavarez MD NIGHT AND WEEKEND COVERAGE: From 7am - 7pm, please call [phone] After 7pm, please call cross cover pager #[phone] Subjective INTERVAL HPI: Reports feeling better. Denied [...] 1800 vte non-pharmacologic prophylaxis - none indicated ([place]) 01/03/20 1800 vte current anticoag therapy ([place]) 01/03/20 1800 activity - mobilize patient ([place]) VTE Prophylaxis: VTE prophylaxis appropriate Disposition: Home Plan of care discussed with: Patient SIGNATURE: Chandan Tavarez MD PATIENT NAME: Cici Woodward DATE: January 06, 2020 TIME: 10:06 AM PAGER/CONTACT #: [phone] Nettie Cheng APRN.DAYANA, MACHINE BOSS 01/06/2020 11:42 AM Signed CARDIOLOGY CONSULT PROGRESS NOTE CARDIOLOGY ATTENDING: Dr. Phillips INTERVAL HISTORY: History of present illness copied and updated 84 year old female PMH T2DM, CAD s/p PCI 30 years ago, CVA on Plavix who was admitted for coronary artery bypass graft eval after presenting as a STEMI to [place]. ? She had been having URI sxs for the last week and was being treated with a 10 day course of amoxicillin. She had associated dry cough and intermittent SOB. Over the last 3 days she's been having bilateral arm pain, that radiated to her chest. She described it as a pressure. She presented to the [place] ED. EKG done in the emergency room revealed Q waves in III and aVF along with ST elevation. It was felt that patient was presenting late with acute ST elevation SD but due to ongoing chest pain that was about 2/10 in intensity she was evaluated and brought emergently to the cardiac Anti Air Warfare Operations Officer for coronary angiography. Coronary angiography revealed multivessel coronary artery disease with MARTIN-3 flow in all the vessels and she was transferred to [facility] for CABG evaluation. Of note, she takes Plavix at home for her hx CVA and did receive Brilinta in the ED . Transthoracic echocardiogram done at [place] showed left ventricular ejection fraction of 30%, [...] later time), STEMI protocol was activated in [place] and patient was given Hep Gtt and Brilinta prior undergoing HC. HC revealed severe MV CAD. Echo performed in [place] on showed: Normal LV size with moderate segmental systolic dysfunction, EF 30%. 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 There is also a 2+MR (no valvular mechanism mentioned) noted without other valvular lesions mentioned. She was recommended to be transferred to [facility] for CABG evaluation. This is a 84 yof who is found to have NSTEMI with PMH of CAD, SD s/p angioplasty (30 yrs ago), T2DM on insulin, HTN, HLD, CVA 5 yrs ago (no known etiology) with mild left side deficit residual complicated with occasional falls, and CKD 2-3. She also has an intracranial meningioma s/p gamma knife (this was dx in 10/2008 via MRI to evaluate DZ. GKRS was 08/14/2013), and follows physician up at [facility] with surveillance brain scan now tapered down to every 4 years as the size of the meningioma has been reducing. She is a lifelong nonsmoker without no known COPD, no CHF or cardiac arrhythmia and known to patient. She denies recurrence SD since 32 yo ago and has not [...] cancers. FH:+CAD in both parents, both from SD in 70-80s. SH: lifelong non smoker, no [...] Neurologic/Psychiatric: oriented to time, place and person, bus starter strength with 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 on the left [...] 2020 TIME: 12:23 PM PAGER/CONTACT #:[phone] Melisa Reza APRN.DAYANA, DAYANA 01/08/2020 10:58 AM Signed [facility] Surgery Pre-Op Open Heart Check List Patient Info: Cici Woodward 1935 84 year old Bactrim [Sulfamethoxazole-Trime thoprim]; Codeine; Prednisone; Statins [Bkestka-Cdl-Zpv Reductase Inhibitors]; Ultram [Tramadol Hcl] HPI: This [...] later time), STEMI protocol was activated in [place] and patient was given Hep Gtt and Brilinta prior undergoing HC. HC revealed severe MV CAD. Echo performed in [place] on showed: Normal LV size with moderate segmental systolic dysfunction, EF 30%. 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 There is also a 2+MR (no valvular mechanism mentioned) noted without other valvular lesions mentioned. She was recommended to be transferred to [facility] for CABG evaluation. This is a 84 yof who is found to have NSTEMI with PMH of CAD, SD s/p angioplasty (30 yrs ago), T2DM on insulin, HTN, HLD, CVA 5 yrs ago (no known etiology) with mild left side deficit residual complicated with occasional falls, and CKD 2-3. She also has an intracranial meningioma s/p gamma knife (this was dx in 10/2008 via MRI to evaluate DZ. GKRS was 08/14/2013), and follows physician up at [facility] with surveillance brain scan now tapered down to every 4 years as the size of the meningioma has been reducing. She is a lifelong nonsmoker without no known COPD, no CHF or cardiac arrhythmia and known to patient. She denies recurrence SD since 30 yo ago and has not had any hospitalization related to CHF or arrhythmia. She denies N/V, diaphoresis, chest palpitation, orthopnea, paroxysmal nocturnal dyspnea, lower extremity edema, presyncope, syncope. She claims to be an active person going to gym 3 times a week. But did noted some SOB recently (more content not included)... Normal [facility] Hemogramon 01-03-2020 Erythrocyte distribution width (RBC) [Ratio] 13.2 % Normal 11.7-14.4 [facility] Comment on above: Performed By: #### C BC1 #### [facility] [address] [place] [address] Hematocrit (Bld) [Volume fraction] 38.4 % Normal 34.1-44.9 [facility] Comment on above: Performed By: #### C BC1 #### [place] [address] Hemoglobin (Bld) [Mass/Vol] 13.0 g/dL Normal 11.2-15.7 [facility] Comment on above: Performed By: #### C BC1 #### [place] [address] MCH (RBC) [Entitic mass] 30.2 pg Normal 25.6-32.2 [facility] Comment on above: Performed By: #### C BC1 #### [place] [address] MCHC (RBC) [Mass/Vol] 33.9 % Normal 31.6-34.8 [facility] Comment on above: Performed By: #### C BC1 #### [facility] [address] [place] [address] MCV (RBC) [Entitic vol] 89.1 fL Normal 79.4-94.8 [facility] Comment on above: Performed By: #### C BC1 #### [facility] [address] [place] [address] Platelet mean volume (Bld) [Entitic vol] 11.2 fL Normal 9.4-12.3 [facility] Comment on above: Performed By: #### C BC1 #### [facility] [address] [place], [place] [address] Platelets (Bld) [#/Vol] 315 thou/cmm Normal 182-369 [facility] Comment on above: Performed By: #### C BC1 #### [facility] [address] [place], [place] [address] RBC (Bld) [#/Vol] 4.31 mil/cmm Normal 3.93-5.22 [facility] Comment on above: Performed By: #### C BC1 #### [facility] [address] [place], [place] [address] RDW SD 43.4 fl Normal 36.4-46.3 [facility] Comment on above: Performed By: #### C BC1 #### [facility] [address] [place], [place] [address] WBC (Bld) [#/Vol] 10.82 thou/cmm High 3.98-10.04 [facility] Comment on above: Performed By: #### C BC1 #### [facility] [address] [place], [place] [address] Hgb A1con 01-03-2020 HbA1c (Bld) [Mass fraction] 8.4 % High 4.2-6.3 [facility] Comment on above: Result Comment: Meth od is National Glycohemoglobin Standardization Program (NGSP) compliant. Performed By: #### H A1C #### [facility] [address] [place], [place] [address] HbA1c (Bld) [Mass fraction] 194 mg/dl Normal [facility] Comment on above: Performed By: #### H A1C #### [facility] [address] [place], [place] [address] Lipid Profileon 01-03-2020 Cholesterol in HDL [Mass/Vol] 42 mg/dL Normal >40 [facility] Comment on above: Performed By: #### L IPD2 #### [place] [address] Cholesterol in LDL [Mass/Vol] 99 mg/dL Normal [facility] Comment on above: Result Comment: No C AD and with fewer than 2 CAD risk factors <160 mg/dL No CAD but with 2 or more CAD risk factors <130 mg/dL Definite CAD or other atherosclerotic disease <100 mg/dL Performed By: #### L IPD2 #### [facility] [address] [place], [place] [address] Cholesterol in LDL/Cholesterol in HDL [Mass ratio] 2.4 Normal 0.6-3.6 [facility] Comment on above: Result Comment: LDL, VLDL,LDL/HDL, Invalid if Triglyceride >400 Performed By: #### L IPD2 #### [facility] [address] [place], [place] [address] Cholesterol.total/Clau sterol in HDL [Mass ratio] 5.0 {ratio} Normal 1.8-5.3 [facility] Comment on above: Performed By: #### L IPD2 #### [facility] [address] [place], [place] [address] Cholesterol in VLDL [Mass/Vol] 67 mg/dL Normal <50 Desired [facility] Comment on above: Performed By: #### L IPD2 #### [facility] [address] [place], [place] [address] Triglyceride [Mass/Vol] 334 mg/dL High 0-149 [facility] Comment on above: Result Comment: < 20 0 Desirable Result invalid if not a fasting specimen. Performed By: #### L IPD2 #### [address] [address] Cholesterol [Mass/Vol] 208 mg/dL High 0-199 [facility] Comment on above: Result Comment: <200 Desirable 200-240 Borderline >240 High Performed By: #### L IPD2 #### [facility] [address] [place], [place] [address] MRSA Screenon 01-03-2020 MRSA DNA MARIS+probe Ql (Unsp spec) Test performed at [facility] No MRSA detected. Normal [facility] Comment on above: Performed By: #### P T #### [address] [address] N-terminal Pro-BNPon 020 Natriuretic peptide B (Bld) [Mass/Vol] 9817 pg/mL Normal [facility] Comment on above: Result Comment: Norm al Reference Range: Patients <75 yrs old <125pg/ml Patients >=75 yrs old <450 pg/ml Performed By: #### P BNP #### [facility] [address] [place] [address] Protimeon 01-03-2020 INR Coag (PPP) [Relative time] 0.94 {INR} Normal 0.90-1.30 [facility] Comment on above: Result Comment: Camille min K Antagonist (VKA) Therapeutic Range: INR 2 to 3 (Target INR of 2.5) Note: For patients treated with VKA drugs, such as warfarin, the [employer] 2012 Guideline recommends [...] [phone] Performed By: #### P T #### [place] [address] PT Coag (PPP) [Time] 10.2 s Normal 9.7-13.0 [facility] Comment on above: Performed By: #### P T #### [facility] [address] [place] [address] Troponin Ion 01-03-2020 Troponin I.cardiac [Mass/Vol] 33.700 ng/mL Critically high 0.015-0.045 [facility] Comment on above: Performed By: #### T ROP #### [place] [address] Culture, urine Bacteria identified Cx Nom (U) Positive [facility] Work Phone: Vital Signs Date Time Vital Sign Value Performing Clinician Facility 07-02-2025 14:00-0400 Body height 157.[address] Anju Pearce MD Work Phone: 3(113)148-230024 [place] [address] 07-02-2025 14:00-0400 Body mass index (BMI) [Ratio] 30.5 kg/m2 Dr. Anju Pearce MD Work Phone: 8(949)236-000024 [place] [address] 07-02-2025 14:00-0400 Body weight 75.[address] Anju Pearce MD Work Phone: 1(766)208-990124 [place] [address] 07-02-2025 14:00-0400 Diastolic blood pressure 64 mm[Hg] Dr. Anju Pearce MD Work Phone: 3(373)229-010924 [place] [address] 07-02-2025 14:00-0400 Heart rate 70 /min Dr. Anju Pearce MD Work Phone: 8(341)262-886124 [place] [address] 07-02-2025 14:00-0400 Respiratory rate 16 /min Dr. Anju Pearce MD Work Phone: 9(782)793-146024 [place] [address] 07-02-2025 14:00-0400 Systolic blood pressure 151 mm[Hg] Dr. Anju Pearce MD Work Phone: 0(460)956-515324 [place] [address] 06-20-2025 14:49-0400 Body temperature 97.5 [degF] Dr. Anju Pearce MD Work Phone: 7(765)387-794524 [place] [address] 06-20-2025 14:49-0400 Diastolic blood pressure 64 mm[Hg] Dr. Anju Pearce MD Work Phone: 4(497)880-132424 [place] [address] 06-20-2025 14:49-0400 Heart rate 82 /min Dr. Anju Pearce MD Work Phone: 5(964)286-503124 [place] [address] 06-20-2025 14:49-0400 Inhaled oxygen flow rate 2 L/min Dr. Anju Pearce MD Work Phone: 6(126)508-529724 [place] [address] 06-20-2025 14:49-0400 Respiratory rate 18 /min Dr. Anju Pearce MD Work Phone: 8(001)592-112724 [place] [address] 06-20-2025 14:49-0400 SaO2% (BldA) [Mass fraction] 93 % Dr. Anju Pearce MD Work Phone: 0(138)081-392024 [place] [address] 06-20-2025 14:49-0400 Systolic blood pressure 152 mm[Hg] Dr. Anju Pearce MD Work Phone: 8(372)569-252724 [place] [address] 06-17-2025 11:21-0400 Body height 157.[address] Anju Pearce MD Work Phone: 9(260)359-144924 [place] [address] 06-17-2025 11:21-0400 Body weight 73.[address] Anju Pearce MD Work Phone: 8(495)782-782024 [place] [address] 06-15-2025 06:00-0400 Body mass index (BMI) [Ratio] 29.7 kg/m2 Dr. Anju Pearce MD Work Phone: 1(047)853-040324 [place] [address] 06-14-2025 12:00-0400 Body temperature 97.7 [degF] Dr. Anju Pearce MD Work Phone: 2(094)743-514424 [place] [address] 06-14-2025 12:00-0400 Diastolic blood pressure 63 mm[Hg] Dr. Anju Pearce MD Work Phone: 5(833)774-466324 [place] [address] 06-14-2025 12:00-0400 Heart rate 69 /min Dr. Anju Pearce MD Work Phone: 0(936)497-465424 [place] [address] 06-14-2025 12:00-0400 Respiratory rate 18 /min Dr. Anju Pearce MD Work Phone: 0(830)542-355524 [place] [address] 06-14-2025 12:00-0400 SaO2% (BldA) [Mass fraction] 93 % Dr. Anju Pearce MD Work Phone: 2(783)792-564424 [place] [address] 06-14-2025 12:00-0400 Systolic blood pressure 163 mm[Hg] Dr. Anju Pearce MD Work Phone: [facility] 06-14-2025 08:19-0400 Body mass index (BMI) [Ratio] 29.9 kg/m2 Dr. Anju Pearce MD Work Phone: [facility] 06-14-2025 08:19-0400 Body weight 76.[address] Anju Pearce MD Work Phone: [facility] 06-14-2025 08:17-0400 Body height 160.[address] Anju Pearce MD Work Phone: [facility] 06-02-2025 10:06-0400 Body mass index (BMI) [Ratio] 30.58 kg/m2 Clement Cortes APRN.MACHINE BOSS Work Phone: [facility] 06-02-2025 10:06-0400 Body temperature 97 [degF] Clement Cortes APRN.MACHINE BOSS Work Phone: [facility] 06-02-2025 10:06-0400 Body weight 74.9 kg Clement Cortes APRN.MACHINE BOSS Work Phone: [facility] 06-02-2025 10:06-0400 Diastolic blood pressure 66 mm[Hg] Clement Cortes APRN.MACHINE BOSS Work Phone: [facility] 06-02-2025 10:06-0400 Heart rate 72 /min Clement Cortes APRN.MACHINE BOSS Work Phone: [facility] 06-02-2025 10:06-0400 Respiratory rate 16 /min Clement Cortes APRN.MACHINE BOSS Work Phone: [facility] 06-02-2025 10:06-0400 SaO2% (BldA) [Mass fraction] 95 % Clement Cortes APRN.MACHINE BOSS Work Phone: [facility] 06-02-2025 10:06-0400 Systolic blood pressure 124 mm[Hg] Clement Cortes APRN.MACHINE BOSS Work Phone: [facility] 05-14-2025 13:37-0400 Body height 156.5 cm [facility] GLOBAL CTO.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: [facility] 05-14-2025 13:37-0400 Body mass index (BMI) [Ratio] 30.54 kg/m2 [facility].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: [facility] 05-14-2025 13:37-0400 Body weight 74.8 kg Ishmael Davis GLOBAL CTO.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: [facility] 05-14-2025 13:37-0400 Diastolic blood pressure 77 mm[Hg] [facility] GLOBAL CTO.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: [facility] 05-14-2025 13:37-0400 Heart rate 69 /min [facility] GLOBAL CTO.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: [facility] 05-14-2025 13:37-0400 SaO2% (BldA) [Mass fraction] 96 % [facility] GLOBAL CTO.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: [facility] 05-14-2025 13:37-0400 Systolic blood pressure 152 mm[Hg] [facility] GLOBAL CTO.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: [facility] 04-30-2025 15:35-0400 Diastolic blood pressure 74 mm[Hg] Dr. Anju Pearce MD Work Phone: [facility] 04-30-2025 15:35-0400 Systolic blood pressure 174 mm[Hg] Dr. Anju Pearce MD Work Phone: [facility] 04-30-2025 15:26-0400 Body height 160.[address] Anju Pearce MD Work Phone: [facility] 04-30-2025 15:26-0400 Body mass index (BMI) [Ratio] 29 kg/m2 Dr. Anju Pearce MD Work Phone: [facility] 04-30-2025 15:26-0400 Body weight 74.[address] Anju Pearce MD Work Phone: [facility] 04-30-2025 15:26-0400 Heart rate 77 /min Dr. Anju Pearce MD Work Phone: [facility] 04-30-2025 15:26-0400 Respiratory rate 16 /min Dr. Anju Pearce MD Work Phone: [facility] 02-19-2025 12:00-0400 Diastolic blood pressure 69 mm[Hg] Ishmael Davis GLOBAL CTO.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: [facility] 02-19-2025 12:00-0400 Heart rate 80 /min Ishmael Davis GLOBAL CTO.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: [facility] 02-19-2025 12:00-0400 Respiratory rate 16 /min Ishmael Davis GLOBAL CTO.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: [facility] 02-19-2025 12:00-0400 Systolic blood pressure 163 mm[Hg] Ishmael Davis GLOBAL CTO.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: [facility] 02-19-2025 09:07-0400 Body mass index (BMI) [Ratio] 31.36 kg/m2 Caridad Anglin GLOBAL CTO.MACHINE BOSS Work Phone: [facility] 02-19-2025 09:07-0400 Body temperature 97 [degF] Caridad Anglin GLOBAL CTO.MACHINE BOSS Work Phone: [facility] 02-19-2025 09:07-0400 Body weight 76.8 kg Caridad Anglin GLOBAL CTO.MACHINE BOSS Work Phone: [facility] 02-19-2025 09:07-0400 Diastolic blood pressure 70 mm[Hg] Caridad Anglin GLOBAL CTO.MACHINE BOSS Work Phone: [facility] 02-19-2025 09:07-0400 Heart rate 83 /min Caridad Anglin GLOBAL CTO.MACHINE BOSS Work Phone: [facility] 02-19-2025 09:07-0400 Respiratory rate 18 /min Caridad Anglin GLOBAL CTO.MACHINE BOSS Work Phone: [facility] 02-19-2025 09:07-0400 SaO2% (BldA) [Mass fraction] 96 % Caridad Caogs GLOBAL CTO.MACHINE BOSS Work Phone: [facility] 02-19-2025 09:07-0400 Systolic blood pressure 159 mm[Hg] Caridad Anglin GLOBAL CTO.MACHINE BOSS Work Phone: [facility] 01-16-2025 12:39-0400 Body height 156.5 cm Anju Pearce MD Work Phone: [facility] 01-16-2025 12:39-0400 Body mass index (BMI) [Ratio] 30.13 kg/m2 Anju Pearce MD Work Phone: [facility] 01-16-2025 12:39-0400 Body temperature 97 [degF] Anju Pearce MD Work Phone: [facility] 01-16-2025 12:39-0400 Body weight 73.8 kg Anju Pearce MD Work Phone: [facility] 01-16-2025 12:39-0400 Diastolic blood pressure 80 mm[Hg] Anju Pearce MD Work Phone: [facility] 01-16-2025 12:39-0400 Heart rate 80 /min Anju Pearce MD Work Phone: [facility] 01-16-2025 12:39-0400 Respiratory rate 16 /min Anju Pearce MD Work Phone: [facility] 01-16-2025 12:39-0400 Systolic blood pressure 150 mm[Hg] Anju Pearce MD Work Phone: [facility] 01-05-2025 13:49-0500 Body temperature 97.9 [degF] Dr. Anju Pearce MD Work Phone: [facility] 01-05-2025 13:49-0500 Diastolic blood pressure 81 mm[Hg] Dr. Anju Pearce MD Work Phone: [facility] 01-05-2025 13:49-0500 Heart rate 68 /min Dr. Anju Pearce MD Work Phone: [facility] 01-05-2025 13:49-0500 Respiratory rate 18 /min Dr. Anju Pearce MD Work Phone: [facility] 01-05-2025 13:49-0500 SaO2% (BldA) [Mass fraction] 96 % Dr. Anju Pearce MD Work Phone: [facility] 01-05-2025 13:49-0500 Systolic blood pressure 161 mm[Hg] Dr. Anju Pearce MD Work Phone: [facility] 01-05-2025 11:12-0500 Body mass index (BMI) [Ratio] 30.9 kg/m2 Dr. Anju Pearce MD Work Phone: [facility] 01-05-2025 11:12-0500 Body weight 79.[address] Anju Pearce MD Work Phone: [facility] 09-12-2024 13:00-0500 Body mass index (BMI) [Ratio] 30.46 kg/m2 Ishmael Davis GLOBAL CTO.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: [facility] 09-12-2024 13:00-0500 Body weight 78 kg Ishmael Davis GLOBAL CTO.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: [facility] 09-12-2024 13:00-0500 Diastolic blood pressure 67 mm[Hg] Ishmael Davis GLOBAL CTO.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: [facility] 09-12-2024 13:00-0500 Heart rate 80 /min Ishmael Davis GLOBAL CTO.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: [facility] 09-12-2024 13:00-0500 Respiratory rate 16 /min Ishmael Davis GLOBAL CTO.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: [facility] 09-12-2024 13:00-0500 Systolic blood pressure 150 mm[Hg] Ishmael Davis GLOBAL CTO.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: [facility] 05-12-2024 13:08-0400 Diastolic blood pressure 68 mm[Hg] Ishmael Davis GLOBAL CTO.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: [facility] 05-12-2024 13:08-0400 Heart rate 69 /min Ishmael Davis GLOBAL CTO.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: [facility] 05-12-2024 13:08-0400 Systolic blood pressure 147 mm[Hg] Ishmael Davis GLOBAL CTO.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: [facility] 05-12-2024 13:07-0400 Body mass index (BMI) [Ratio] 30.47 kg/m2 Ishmael Davis GLOBAL CTO.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: [facility] 05-12-2024 13:07-0400 Body weight 78.02 kg Ishmael Davis GLOBAL CTO.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: [facility] 05-12-2024 13:07-0400 Respiratory rate 16 /min Ishmael Davis GLOBAL CTO.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: [facility] 01-11-2024 13:54-0500 Diastolic blood pressure 68 mm[Hg] Anju Pearce MD Work Phone: [facility] 01-11-2024 13:54-0500 Systolic blood pressure 128 mm[Hg] Anju Pearce MD Work Phone: [facility] 09-20-2023 13:14-0500 Diastolic blood pressure 68 mm[Hg] Ishmael Davis GLOBAL CTO.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: [facility] 09-20-2023 13:14-0500 Heart rate 75 /min Ishmael Davis GLOBAL CTO.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: [facility] 09-20-2023 13:14-0500 Systolic blood pressure 145 mm[Hg] Ishmael Davis GLOBAL CTO.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: [facility] 09-20-2023 13:13-0500 Body weight 77.56 kg Ishmael Davis GLOBAL CTO.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: [facility] 09-20-2023 13:13-0500 Respiratory rate 16 /min Ishmael Davis GLOBAL CTO.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: [facility] 09-05-2023 11:46-0400 Diastolic blood pressure 68 mm[Hg] Iesha Bairon GLOBAL CTO.MACHINE BOSS Work Phone: [facility] 09-05-2023 11:46-0400 Heart rate 80 /min Iesha Bairon GLOBAL CTO.MACHINE BOSS Work Phone: [facility] 09-05-2023 11:46-0400 Systolic blood pressure 156 mm[Hg] Iesha Bairon GLOBAL CTO.MACHINE BOSS Work Phone: [facility] 09-05-2023 11:44-0400 Body weight 78.02 kg Iesha Bairon GLOBAL CTO.MACHINE BOSS Work Phone: [facility] 09-05-2023 11:44-0400 SaO2% (BldA) [Mass fraction] 98 % Iesha Bairon GLOBAL CTO.MACHINE BOSS Work Phone: [facility] 08-23-2023 14:43-0400 Diastolic blood pressure 77 mm[Hg] Ishmael Davis GLOBAL CTO.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: [facility] 08-23-2023 14:43-0400 Heart rate 71 /min Ishmael Davis GLOBAL CTO.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: [facility] 08-23-2023 14:43-0400 Systolic blood pressure 160 mm[Hg] Ishmael Davis GLOBAL CTO.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: [facility] 08-23-2023 14:39-0400 Body weight 75.75 kg Ishmael Davis GLOBAL CTO.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: [facility] 08-23-2023 14:39-0400 Respiratory rate 16 /min Ishmael Davis GLOBAL CTO.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: [facility] 08-14-2023 17:36-0400 Diastolic blood pressure 80 mm[Hg] Anju Pearce MD Work Phone: [facility] 08-14-2023 17:36-0400 Systolic blood pressure 150 mm[Hg] Anju Pearce MD Work Phone: [facility] 08-14-2023 16:43-0400 Body temperature 96.1 [degF] Anju Pearce MD Work Phone: [facility] 08-14-2023 16:43-0400 Body weight 75.75 kg Anju Pearce MD Work Phone: [facility] 08-14-2023 16:43-0400 Heart rate 79 /min Anju Pearce MD Work Phone: [facility] 08-14-2023 16:43-0400 Respiratory rate 18 /min Anju Pearce MD Work Phone: [facility] 08-14-2023 16:43-0400 SaO2% (BldA) [Mass fraction] 97 % Anju Pearce MD Work Phone: [facility] 07-21-2023 10:42-0400 Body temperature 98.2 [degF] Clement Cortes APRN.MACHINE BOSS Work Phone: [facility] 07-21-2023 10:42-0400 Body weight 74.84 kg Clement Cortes APRN.MACHINE BOSS Work Phone: [facility] 07-21-2023 10:42-0400 Diastolic blood pressure 94 mm[Hg] Clement Cortes APRN.MACHINE BOSS Work Phone: [facility] 07-21-2023 10:42-0400 Heart rate 104 /min Clement Cortes APRN.MACHINE BOSS Work Phone: [facility] 07-21-2023 10:42-0400 Respiratory rate 18 /min Clement Cortes APRN.MACHINE BOSS Work Phone: [facility] 07-21-2023 10:42-0400 SaO2% (BldA) [Mass fraction] 97 % Clement Cortes APRN.MACHINE BOSS Work Phone: [facility] 07-21-2023 10:42-0400 Systolic blood pressure 152 mm[Hg] Clement Cortes APRN.MACHINE BOSS Work Phone: [facility] 01-09-2023 14:13-0500 Body temperature 98.29 [degF] Anju Pearce MD Work Phone: [facility] 01-09-2023 14:13-0500 Body weight 78.93 kg Anju Pearce MD Work Phone: [facility] 01-09-2023 14:13-0500 Diastolic blood pressure 72 mm[Hg] Anju Pearce MD Work Phone: [facility] 01-09-2023 14:13-0500 Heart rate 78 /min Anju Pearce MD Work Phone: [facility] 01-09-2023 14:13-0500 Respiratory rate 18 /min Anju Pearce MD Work Phone: [facility] 01-09-2023 14:13-0500 SaO2% (BldA) [Mass fraction] 97 % Anju Pearce MD Work Phone: [facility] 01-09-2023 14:13-0500 Systolic blood pressure 122 mm[Hg] Anju Pearce MD Work Phone: [facility] 01-01-2023 13:33-0500 Diastolic blood pressure 71 mm[Hg] Iesha Bairon GLOBAL CTO.MACHINE BOSS Work Phone: [facility] 01-01-2023 13:33-0500 Systolic blood pressure 148 mm[Hg] Iesha Bairon GLOBAL CTO.MACHINE BOSS Work Phone: [facility] 01-01-2023 13:31-0500 Body weight 78.93 kg Iesha Bairon GLOBAL CTO.MACHINE BOSS Work Phone: [facility] 01-01-2023 13:31-0500 Heart rate 71 /min Iesha Bairon GLOBAL CTO.MACHINE BOSS Work Phone: [facility] 01-01-2023 13:31-0500 SaO2% (BldA) [Mass fraction] 98 % Iesha Bairon GLOBAL CTO.MACHINE BOSS Work Phone: [facility] 10-03-2022 13:54-0500 Body height 160.[address] Anju Pearce Work Phone: 8(161)521-723924 [place] [address] 10-03-2022 13:54-0500 Body mass index (BMI) [Ratio] 30.1 kg/m2 Dr. Anju Pearce Work Phone: 3(679)949-034624 [place] [address] 10-03-2022 13:54-0500 Body temperature 97.6 [degF] Dr. Anju Pearce Work Phone: 3(056)308-151124 [place] [address] 10-03-2022 13:54-0500 Body weight 77.[address] Anju Pearce Work Phone: 9(004)253-320224 [place] [address] 10-03-2022 13:54-0500 Diastolic blood pressure 96 mm[Hg] Dr. Anju Pearce Work Phone: 6(703)621-945224 [place] [address] 10-03-2022 13:54-0500 Heart rate 74 /min Dr. Anju Pearce Work Phone: 1(244)675-664324 [place] [address] 10-03-2022 13:54-0500 Respiratory rate 16 /min Dr. Anju Pearce Work Phone: 1(110)428-834024 [place] [address] 10-03-2022 13:54-0500 SaO2% (BldA) [Mass fraction] 97 % Dr. Anju Pearce Work Phone: 0(316)698-815424 [place] [address] 10-03-2022 13:54-0500 Systolic blood pressure 170 mm[Hg] Dr. Anju Pearce Work Phone: 0(047)901-254724 [place] [address] 07-13-2022 15:19-0400 Body height 157.[address] Anju Pearce Work Phone: 2(271)444-160724 [place] [address] Work Phone: 07-13-2022 15:14-0400 Body mass index (BMI) [Ratio] 31.6 kg/m2 Dr. Anju Pearce Work Phone: 2(911)575-404350 [place] [address] Work Phone: 07-13-2022 15:14-0400 Body weight 78.[address] Anju Pearce Work Phone: [facility] Work Phone: 07-13-2022 15:14-0400 Diastolic blood pressure 76 mm[Hg] Dr. Anju Pearce Work Phone: [facility] Work Phone: 07-13-2022 15:14-0400 Systolic blood pressure 134 mm[Hg] Dr. Anju Pearce Work Phone: [facility] Work Phone: 06-25-2022 09:12-0400 Body temperature 98.2 [degF] Patsy Geo GLOBAL CTO.MACHINE BOSS Work Phone: [facility] 06-25-2022 09:12-0400 Body weight 79.38 kg Patsy Geo GLOBAL CTO.MACHINE BOSS Work Phone: [facility] 06-25-2022 09:12-0400 Diastolic blood pressure 78 mm[Hg] Patsy Geo GLOBAL CTO.MACHINE BOSS Work Phone: [facility] 06-25-2022 09:12-0400 Heart rate 96 /min Patsy Geo GLOBAL CTO.MACHINE BOSS Work Phone: [facility] 06-25-2022 09:12-0400 Respiratory rate 18 /min Patsy Geo GLOBAL CTO.MACHINE BOSS Work Phone: [facility] 06-25-2022 09:12-0400 SaO2% (BldA) [Mass fraction] 97 % Patsy Geo GLOBAL CTO.MACHINE BOSS Work Phone: [facility] 06-25-2022 09:12-0400 Systolic blood pressure 142 mm[Hg] Patsy Geo GLOBAL CTO.MACHINE BOSS Work Phone: [facility] 01-10-2020 06:24-0500 Body temperature 36.7 Deg Dinora [facility] Comment on above: Performed By: #### PBNP #### [place] [address] 01-09-2020 16:36-0500 Body temperature 36.0 Deg Dinora [facility] Comment on above: Performed By: #### LIPD2 #### [facility] [address] [place], [place] [address] Encounters Encounter Date Encounter Type Care Provider Facility Start: 07-16-2025 ambulatory Anju Quijano y:[facility] Start: 07-14-2025 End: 07-14-2025 ambulatory Ishmael Davis APRN.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: [facility] [place] Comment on above: [facility] Start: 07-07-2025 End: 07-16-2025 ambulatory Ishmael Davis GLOBAL CTO.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: [facility] [place] Comment on above: Yves Start: 07-03-2025 End: 07-03-2025 ambulatory Anju Pearce MD Work Phone: [facility] [place] Comment on above: Yves Start: 07-02-2025 End: 07-02-2025 Patient encounter procedure Marika George [facility] Work Phone: Start: 07-02-2025 End: 07-03-[address] Anju Pearce MD Work Phone: -[facility] Comment on above: Yves Start: 06-20-2025 Non-patient / Non-visit Dr. Lillian Mae MD -[facility] Work Phone: Start: 06-19-2025 Non-patient / Non-visit Dr. Lillian Mae MD -[facility] Work Phone: Start: 06-18-2025 Non-patient / Non-visit Dr. Lillian Mae MD -[facility] Work Phone: Start: 06-17-2025 ambulatory Anju Quijano y:[facility] Start: 06-17-2025 Non-patient / Non-visit Dr. Catie carroll MD -[facility] Start: 06-16-2025 End: 06-16-2025 ambulatory Hal Holliday MA [facility] Start: 06-16-2025 End: 06-16-2025 Patient encounter procedure Hal Holliday MA [facility] Comment on above: Population Health Na vigation Outreach (ACO WORKBECOUNTS [facility]CLUDE [facility] Start: 06-16-2025 Non-patient / Non-visit Dr. Lillian Mae MD -[facility] Work Phone: Start: 06-15-2025 Non-patient / Non-visit Dr. Lillian Mae MD -[facility] Work Phone: Start: 06-14-2025 Non-patient / Non-visit Dr. Ventura casey MD -[facility] Work Phone: Start: 06-14-2025 End: 06-14-2025 ambulatory Cameron Freeman MD Work Phone: [facility] [place] Start: 06-14-2025 End: 06-20-2025 Evaluation and management of inpatient Dr. Ventura Ivy MD -[facility] Work Phone: Start: 06-02-2025 End: 06-02-2025 Patient encounter procedure Clement Cortes APRN.MACHINE BOSS Work Phone: [facility] [place] Comment on above: Pelvic pain (Primary Dx); Hematuria, unspecified type Start: 06-02-2025 End: 06-02-2025 ambulatory ANJU TALAMPAS Facility:[facility] Start: 05-14-2025 End: 05-14-2025 ambulatory ISHMAEL DAVIS Facility:[facility] Start: 05-14-2025 End: 05-14-2025 Patient encounter procedure Ishmael Davis GLOBAL CTO.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: [facility] [place] Comment on [...] Start: 05-13-2025 End: 05-13-2025 ambulatory ANJU PEARCE Facility:[facility] Start: 05-06-2025 End: 05-11-2025 ambulatory Hal Holliday MA [facility] Start: 05-06-2025 End: 05-11-2025 Patient encounter procedure Hal Holliday MA [facility] Comment on above: Population Health Na vigation Outreach (ACO WORKBENC [facility] ) Start: 05-05-2025 Non-patient / Non-visit Dr. Cornelia christian MD -[facility] Work Phone: Start: 04-30-2025 End: 04-30-2025 Patient encounter procedure Marika PADILLA -[facility] Work Phone: Start: 04-30-2025 End: 04-30-[address] Anju Pearce MD Work Phone: [facility] Work Phone: Start: 04-21-2025 End: 04-21-2025 Telephone encounter Anju Pearce MD Work Phone: [facility] [place] Comment on above: Patient Question Refill Request Start: 04-01-2025 End: 04-02-2025 Telephone encounter Anju Pearce MD Work Phone: [facility] [place] Comment on above: Medication Request Start: 03-18-2025 End: 03-18-2025 Refill Anju Pearce MD Work Phone: [address] [place] [address] Comment on above: Refill Request Start: 03-02-2025 End: 05-02-2025 Follow-up encounter Ishmael Davis APRN.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: [facility] Start: 02-27-2025 End: 04-29-2025 Follow-up encounter Ishmael Davis APRN.CNS Work Phone: [facility] Start: 02-27-2025 End: 02-27-2025 ambulatory ANJU JEANIEMARIA M Facility:[facility] Start: 02-20-2025 End: 02-20-2025 Follow-up encounter Reesegeorge Ga GLOBAL CTO.MACHINE BOSS Work Phone: [facility] Start: 02-19-2025 End: 02-19-2025 Office outpatient visit 25 minutes Ishmael Duncans GLOBAL CTO.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: [facility] [place] Comment on above: Pleural effusion (Pr imary Dx); Chronic heart failure with preserved ejection fraction (HCC); Type 2 diabetes mellitus with stage 3b chronic kidney disease, with long-term current use of insulin (HCC); Hyperlipidemia, unspecified hyperlipidemia type Start: 02-19-2025 End: 02-19-2025 ambulatory [facility] Facility:[facility] Start: 02-19-2025 End: 02-19-2025 Subsequent hospital visit by physician Xr [facility] [place] Work Phone: Radiology Comment on above: Acute cough [R05.1] Start: 02-19-2025 End: 02-19-2025 Patient encounter procedure Caridad Anglin GLOBAL CTO.MACHINE BOSS Work Phone: [facility] Comment on above: wheezing (Primary Dx ); Exposure to influenza; Viral illness; Edema, unspecified type Start: 02-19-2025 End: 02-19-2025 ambulatory [facility] Facility:[facility] Start: 01-19-2025 End: 01-19-2025 [facility] Start: 01-19-2025 End: 01-19-2025 Patient encounter procedure Hal Holliday MA [facility] Comment on above: Population Health Na vigation Outreach ( ACO WORKBENC [facility]) Start: 01-18-2025 End: 01-19-2025 ambulatory Anju Pearce MD Work Phone: [facility] Comment on above: Plavix Start: 01-16-2025 End: 01-16-2025 ambulatory [facility] Facility:[facility] Start: 01-16-2025 End: 01-16-2025 Office outpatient [...] Anju Pearce MD Work Phone: [facility] [place] Comment on above: Med Change Request Start: 01-05-2025 End: 01-05-2025 Emergency department patient visit Dr. Igor Wells DO -Emergency Department Work Phone: Start: 12-25-2024 End: 01-06-2025 ambulatory Anju Pearce MD Work Phone: [facility] [place] Comment on above: Formulary Changes fo r Insulin - here we go again Start: 11-11-2024 End: 11-19-2024 ambulatory Anju Pearce MD Work Phone: [facility] [place] Comment on above: Handicap Placard Start: 10-23-2024 ambulatory Anju Pearce Facilit y:[facility] Start: 10-23-2024 End: 10-23-2024 ambulatory Anju Pearce Facility:[facility] Start: 09-22-2024 End: 09-22-2024 ambulatory Anju Pearce Facility:[facility] Start: 09-17-2024 End: 09-18-2024 ambulatory Anju Pearce MD Work Phone: [facility] [place] Comment on above: NT Pro BNP Start: 09-12-2024 End: 09-12-2024 Office outpatient visit 25 minutes Ishmael Davis APRN.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: [facility] [place] Comment on above: Type 2 diabetes britni [...] Start: 09-12-2024 End: 09-12-2024 ambulatory ANJU PEARCE Facility:[facility] Start: 08-07-2024 End: 08-07-2024 Refill Anju Pearce MD Work Phone: [facility] [place] Comment on above: Refill Request Start: 06-20-2024 End: 06-21-2024 Telephone encounter Anju Pearce MD Work Phone: [facility] [place] Comment on above: Medication Problem Start: 06-19-2024 Telephone encounter Anju constantino MD Work Phone: [facility] [place] Comment on above: Medication Problem Start: 05-12-2024 End: 05-12-2024 Office outpatient visit 25 minutes Ishmael Davis APRN.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: [facility] [place] Comment on above: Screening for diabet ic retinopathy (Primary Dx); PMB (postmenopausal bleeding); Idiopathic gout of multiple sites, unspecified chronicity; Hyperuricemia; 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); Hypertension goal BP (blood pressure) < 150/90; Type 2 diabetes mellitus with stage 3b chronic kidney disease, with long-term current use of insulin ([facility]); Pure hypercholesterolemia; History of CVA (cerebrovascular accident); S/P CABG x 4; Stage 3b chronic kidney disease (HCC); Excessive cerumen in both ear canals Start: 01-16-2024 Refill Iesha Waddell GLOBAL CTO.MACHINE BOSS Work Phone: [facility] [place] Comment on above: Med Change Request Start: 01-14-2024 Refill Anju rebolledo MD Work Phone: [facility] [place] Comment on above: Refill Request (SEE RX NOTES) pharmacy asking for new meter and strips rx Start: 01-11-2024 End: 01-11-2024 Office outpatient visit 25 minutes Anju Pearce MD Work Phone: [facility] [place] Comment on above: Type 2 diabetes britni [...] Start: 12-26-2023 End: 12-26-2023 ambulatory Galilea Hardy [facility] Work Phone: [facility] Comment on above: Congestive heart rosalva lure, unspecified HF chronicity, unspecified heart failure type (HCC) (Primary Dx) Start: 12-26-2023 End: 12-26-2023 Telemedicine consultation with patient Galilea aHrdy [facility] Work Phone: [facility] Start: 12-12-2023 Telephone encounter Galilea zhao [facility] Work Phone: [facility] [place] Comment on above: Medication Problem Start: 12-06-2023 Refill Iesha Waddell APRN.MACHINE BOSS Work Phone: [facility] [place] Comment on above: Refill Request Start: 10-01-2023 Telephone encounter Anju constantino MD Work Phone: [facility] [place] Comment on above: Permission to rece e pt's health information Patient Question Start: 09-20-2023 End: 09-20-2023 Office outpatient visit 25 minutes Ishmael Davis APRN.CNS Work Phone: [facility] [place] Comment on above: Type 2 diabetes britni itus with stage 3b chronic kidney disease, with long-term current use of insulin (HCC) (Primary Dx); Chronic renal disease, stage IV (HCC); Hypertension goal BP (blood pressure) < 150/90; Macroalbuminuric diabetic nephropathy (HCC); Congestive heart failure, unspecified HF chronicity, unspecified heart failure type (HCC) Start: 09-11-2023 Refill Anju rebolledo MD Work Phone: [facility] [place] Comment on above: Med Change Request Start: 09-08-2023 Refill Iesha Waddell APRN.MACHINE BOSS Work Phone: [facility] [place] Comment on above: Med Change Request Start: 09-05-2023 End: 09-05-2023 Patient encounter procedure Iesha Waddell APRN.MACHINE BOSS Work Phone: [facility] [place] Comment on [...] Office outpatient visit 25 minutes Ishmael Davis APRN.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: [facility] [place] Comment on above: Encounter for immuni zation (Primary Dx) Start: 08-14-2023 End: 08-14-2023 Office outpatient visit 25 minutes Anju Pearce MD Work Phone: [facility] [place] Comment on above: Type 2 diabetes britni [...] End: 07-21-2023 Patient encounter procedure Clement Cortes APRN.MACHINE BOSS Work Phone: [facility] Comment on above: URI, acute (Primary Dx) Start: 07-20-2023 Telephone encounter Anju constantino MD Work Phone: [facility] [place] Comment on above: Medication Problem Start: 07-02-2023 Refill Anju rebolledo MD Work Phone: [facility] Comment on above: Refill Request Start: 06-01-2023 Refill Anju rebolledo MD Work Phone: [facility] [place] Comment on above: Refill Request Start: 04-25-2023 Refill Anju rebolledo MD Work Phone: [facility] [place] Comment on above: Refill Request Start: 03-14-2023 Refill Anju rebolledo MD Work Phone: [facility] [place] Comment on above: Refill Request Start: 02-26-2023 Refill Anju rebloledo MD Work Phone: [facility] [place] Comment on above: Refill Request Start: 01-22-[address] [facility] Start: 01-09-2023 End: 01-09-2023 Office [...] Anju constantino MD Work Phone: [facility] [place] Comment on above: Order for Home Healt h Start: 01-01-2023 End: 02-27-2023 Patient encounter procedure Iesha Waddell APRN.MACHINE BOSS Work Phone: [facility] [place] Comment on above: Closed fracture of l eft shoulder with routine healing, subsequent encounter (Primary Dx); Mixed hyperlipidemia; Obesity, Class I, BMI 30-34.9; Type 2 diabetes mellitus with stage 3b chronic kidney disease, with long-term current use of insulin ([facility]) Start: 12-25-2022 Refill Anju rebolledo MD Work Phone: [facility] [place] Comment on above: Refill Request Start: 10-04-2022 End: 10-04-[address] Anju Pearce Work Phone: [facility] Start: 10-03-2022 End: 10-03-2022 Emergency department patient visit Dr. Anju Pearce Work Phone: [facility]-Emergency Department Start: 08-19-2022 Refill Anju rebolledo MD Work Phone: [facility] [place] Comment on above: Refill Request Start: 07-24-2022 End: 07-24-[address] Anju Pearce Work Phone: [facility] Work Phone: Start: 07-24-2022 End: 07-24-[address] Anju Pearce Work Phone: [facility] Start: 07-13-2022 End: 07-13-[address] Anju Pearce Work Phone: [facility] Work Phone: Start: 07-13-2022 End: 07-13-[address] Anju Pearce Work Phone: [facility]-Laboratory, Specimen Start: 07-13-2022 End: 07-13-[address] Anju Pearce Work Phone: [facility] Start: 07-04-2022 End: 07-04-2022 ambulatory [facility] Work Phone: Start: 07-04-2022 End: 07-04-2022 Patient encounter procedure [facility]-Ultrasound, [facility] Start: 06-28-2022 Telephone encounter Anju constantino MD Work Phone: [facility] [place] Comment on above: Fax urine culture an d last offive visit notes Start: 06-28-2022 End: 06-28-2022 Patient encounter procedure [facility]-Laboratory, Specimen Start: 06-26-2022 Telephone encounter Hal Bassgema Horner APRN.MACHINE BOSS Work Phone: [facility] Comment on above: Results, Lab Start: 06-25-2022 End: 06-25-2022 Office outpatient visit 25 minutes Patsy Guardado GLOBAL CTO.MACHINE BOSS Work Phone: [facility] Comment on above: Urinary frequency (P rimary Dx); Acute lower UTI Start: 02-06-2022 Refill Anju rebolledo MD Work Phone: [facility] [place] Comment on above: Refill Request Procedures Date [...] et rgnt auto w/o microscopy Clement Byron GLOBAL CTO.MACHINE BOSS Work Phone: Start: 05-14-2025 Adult depression scr eening assessment Ishmaelgema Davis GLOBAL CTO.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: Start: 02-19-2025 Radiologic exam ches t 2 views Caridad Anglin GLOBAL CTO.MACHINE BOSS Work Phone: Start: 01-05-2025 SARS-CoV-2, Influenz a [...] above: Performed By: #### T ROP #### [place] [address] History of coronary artery bypass grafting History of coronary artery bypass graft Comment on above: GHOSH-LAD, GHOSH- diag onal, SVG-OM, SVG-RCA 01/09/20 History of coronary artery bypass grafting S/P CABG x 4 Anju Pearce MD Work Phone: History of coronary artery bypass grafting S/P CABG x 4 Ishmael Ryan SWARTZ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: History of coronary artery bypass grafting S/P CABG x 4 Anju Pearce MD Work Phone: Urine culture Dr. Anju lloyd Work Phone: Plan of Treatment Date Care Activity Detail Author Start: 06-16-2032 Urine microalbumin profile [facility] Start: 05-14-2026 Anxiety Screening Anxiety Screening [facility] Start: 05-14-2026 Depression Screening Depression Screening [facility] Start: 05-14-2026 Medicare Annual Wellness Visit Medicare Annual Wellness Visit [facility] Start: 05-13-2026 Hepatitis B surface antibody level LDL Cholesterol [facility] Start: 01-16-2026 Diabetic foot examination Diabetic Foot Exam [facility] Start: 11-13-2025 Hemoglobin A1c measurement HbA1C [facility] Start: 09-12-2025 Covid-19 Vaccine ( season) Covid-19 Vaccine () [facility] Comment on above: Postponed from 07/06/2024 (Declined at t his time) Start: 08-21-2025 End: 08-21-2025 Patient encounter procedure 08/21/2025 3:20 PM EDT Office Visit [facility] [address] [place] [address] Anju Pearce MD [address] [place] [address] 3 month f/u [facility] [place] Comment on above: 3 month f/u Start: 08-14-2025 End: 11-13-2025 Basic metabolic 2000 panel - Serum or Plasma BASIC METABOLIC PANEL Lab Routine Type 2 diabetes mellitus with stage 3b chronic kidney disease, with long-term current use of insulin (HCC) Chronic renal disease, stage IV (HCC) Expected: 08/14/2025 (Approximate), Expires: 11/13/2025 [facility] Work Phone: Comment on above: Expected: 08/14/2025 (Approximate), Expi res: 11/13/2025 Start: 08-14-2025 End: 11-13-2025 CBC W Auto Differential panel - Blood COMPLETE BLOOD COUNT AND DIFFERENTIAL Lab Routine Mild anemia Expected: 08/14/2025 (Approximate), Expires: 11/13/2025 [facility] Comment on above: Expected: 08/14/2025 (Approximate), Expi res: 11/13/2025 Start: 07-06-2025 Influenza vaccination Influenza Vaccine (#1) [facility] Start: 06-20-2025 Patient discharge [facility] Start: 06-20-2025 Oxygen therapy [facility] Start: 06-19-2025 Application of intermittent pneumatic compression device [facility] Start: 06-18-2025 Referral to locomotive engineer [facility] Start: 06-15-2025 [facility] Start: 06-14-2025 End: 06-15-2025 [facility] Start: 06-14-2025 Following clinical pathway protocol [facility] Start: 06-14-2025 Ambulation without limitation [facility] Start: 06-14-2025 Assessment of risk of venous thromboembolism [facility] Start: 06-14-2025 Care regimes management [facility] Start: 06-14-2025 Inhalation therapy procedure [facility] Start: 06-14-2025 Insertion of catheter into peripheral vein [facility] Start: 06-14-2025 Measuring intake and output [facility] Start: 06-14-2025 Notification of physician [facility] Start: 06-14-2025 Providing care according to standard [facility] Start: 06-14-2025 Referral to service [facility] Start: 06-14-2025 Verification routine [facility] Start: 06-14-2025 Admission procedure [facility] Start: 06-14-2025 Hospital admission, emergency, from emergency room, medical nature [facility] Start: 05-14-2025 End: 05-14-2025 Patient encounter procedure [facility] [place] Comment on above: 4 month f/u Start: 05-12-2025 Anxiety Screening Anxiety Screening [facility] Start: 05-12-2025 Depression Screening Depression Screening [facility] Start: 05-05-2025 End: 08-04-2025 25-hydroxyvitamin D3 [Mass/volume] in Serum or Plasma VITAMIN D 25 HYDROXY Lab Routine Vitamin D deficiency Expected: 05/05/2025 (Approximate), Expires: 08/04/2025 [facility] Comment on above: Expected: 05/05/2025 (Approximate), Expi res: 08/04/2025 Start: 05-05-2025 End: 08-04-2025 CBC panel - Blood by Automated count COMPLETE BLOOD COUNT Lab Routine Type 2 diabetes mellitus with stage 3b chronic kidney disease, with long-term current use of insulin ([facility]) Hypertension goal BP (blood pressure) < 150/90 Expected: 05/05/2025 (Approximate), Expires: 08/04/2025 [facility] Comment on above: Expected: 05/05/2025 (Approximate), Expi res: 08/04/2025 Start: 05-05-2025 End: 08-04-2025 Comprehensive metabolic 2000 panel - Serum or Plasma COMPREHENSIVE METABOLIC PANEL Lab Routine Type 2 diabetes mellitus with stage 3b chronic kidney disease, with long-term current use of insulin (HCC) Hypertension goal BP (blood pressure) < 150/90 Expected: 05/05/2025 (Approximate), Expires: 08/04/2025 [facility] Comment on above: Expected: 05/05/2025 (Approximate), Expi res: 08/04/2025 Start: 05-05-2025 End: 08-04-2025 Hemoglobin A1c in Blood HEMOGLOBIN A1C Lab Routine Type 2 diabetes mellitus with stage 3b chronic kidney disease, with long-term current use of insulin (HCC) Expected: 05/05/2025 (Approximate), Expires: 08/04/2025 [facility] Work Phone: Comment on above: Expected: 05/05/2025 (Approximate), Expi res: 08/04/2025 Start: 05-05-2025 End: 08-04-2025 Lipid 1996 panel - Serum or Plasma LIPID PANEL BASIC Lab Routine Pure hypercholesterolemia Expected: 05/05/2025 (Approximate), Expires: 08/04/2025 [facility] Comment on above: Expected: 05/05/2025 (Approximate), Expi res: 08/04/2025 Start: 05-05-2025 End: 08-04-2025 Microalbumin/Creatinine [Mass Ratio] in Urine ALBUMIN/CREATININE RATIO, URINE Lab Routine Type 2 diabetes mellitus with stage 3b chronic kidney disease, 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) Expected: 05/05/2025 (Approximate), Expires: 08/04/2025 [facility] Comment on above: Expected: 05/05/2025 (Approximate), Expi res: 08/04/2025 Start: 05-05-2025 End: 08-04-2025 Urate [Mass/volume] in Serum or Plasma URIC ACID Lab Routine Hyperuricemia Expected: 05/05/2025 (Approximate), Expires: 08/04/2025 [facility] Comment on above: Expected: 05/05/2025 (Approximate), Expi res: 08/04/2025 Start: 03-17-2025 Glaucoma screening Dilated Retinal Exam [facility] Start: 03-12-2025 Hemoglobin A1c measurement HbA1C [facility] Start: 02-26-2025 End: 03-21-2026 XR Chest PA and Lateral XR CHEST 2V FRONTAL/LAT Radiology STAT Pleural effusion Expected: 02/26/2025 (Approximate), Expires: 03/21/2026 [facility] Work Phone: Comment on above: Expected: 02/26/2025 (Approximate), Expi res: 03/21/2026 Start: 01-16-2025 End: 01-16-2025 Patient encounter procedure 01/16/2025 1:00 PM EDT Office Visit [facility] [place] [address] [place] [address] Anju Pearce MD [address] [place] [address] 1 yr f/u [facility] [place] Comment on above: 1 yr f/u Start: 01-10-2025 Covid-19 Vaccine () Covid-19 Vaccine () [facility] Comment on above: Postponed from 07/06/2023 (Declined at t his time) Start: 01-10-2025 Diabetic foot examination Diabetic Foot Exam [facility] Start: 01-09-2025 Hepatitis B surface antibody level LDL Cholesterol [facility] Start: 01-05-2025 [facility] Start: 11-09-2024 Hemoglobin A1c measurement HbA1C [facility] Start: 11-05-2024 Advance Directive Discussion Advance Directive Discussion [facility] Start: 09-12-2024 End: 12-12-2024 Basic metabolic 2000 panel - Serum or Plasma [facility] Work Phone: Comment on above: Expected: 09/12/2024, Expires: Start: 09-12-2024 End: 12-12-2024 Hemoglobin A1c in Blood [facility] Comment on above: Expected: 09/12/2024, Expires: Start: 09-12-2024 End: 12-12-2024 Natriuretic peptide.B prohormone N-Terminal [Mass/volume] in Serum or Plasma [facility] Comment on above: Expected: 09/12/2024, Expires: Start: 09-12-2024 End: 09-12-2024 Patient encounter procedure 09/12/2024 1:00 PM EST Office Visit Internal Medicine [facility] [address] [place] [address] Ishmael Davis APRN.BARBED WIRE MACHINE OPERATOR [address] [place] [address] 4 month f/u [facility] [place] Comment on above: 4 month f/u Start: 07-12-2024 Hemoglobin A1c measurement HbA1C [facility] Start: 07-06-2024 Covid-19 Vaccine ( season) Covid-19 Vaccine () [facility] Start: 07-06-2024 Influenza vaccination Influenza Vaccine (#1) [facility] Start: 05-12-2024 End: 08-11-2024 25-hydroxyvitamin D3 [Mass/volume] in Serum or Plasma VITAMIN D 25 HYDROXY Lab Routine Vitamin D deficiency Encounter for long-term current use of medication Expected: 05/12/2024 (Approximate), Expires: 08/11/2024 [facility] Work Phone: Comment on above: Expected: 05/12/2024 (Approximate), Expi res: 08/11/2024 Start: 05-12-2024 End: 08-11-2024 CBC panel - Blood by Automated count CBC Lab Routine Encounter for long-term current use of medication Hypertension goal BP (blood pressure) < 150/90 Expected: 05/12/2024 (Approximate), Expires: 08/11/2024 [facility] Work Phone: Comment on above: Expected: 05/12/2024 [...] < 150/90 Expected: 05/12/2024 (Approximate), Expires: 08/11/2024 [facility] Work Phone: Comment on above: Expected: 05/12/2024 (Approximate), Expi res: 08/11/2024 Start: 05-12-2024 End: 08-11-2024 Hemoglobin A1c in Blood HGB A1C Lab Routine Type 2 diabetes mellitus with stage 3b chronic kidney disease, with long-term current use of insulin (HCC) Encounter for long-term current use of medication Expected: 05/12/2024 (Approximate), Expires: 08/11/2024 [facility] Work Phone: Comment on above: Expected: 05/12/2024 (Approximate), Expi res: 08/11/2024 Start: 02-23-2024 Hemoglobin A1c measurement HbA1C [facility] Start: 02-23-2024 Hemoglobin A1c/Hemoglobin.total in Blood HbA1C [facility] Start: 02-19-2024 Hepb vaccine adult 3 dose schedule for im use HEP B VACCINE, 3-DOSE, AGE 20+ YR (ENGERIX-B, RECOMBIVAX HB) Immunization/Injection Routine Encounter for immunization Expected: 02/19/2024 [facility] Work Phone: Comment on above: Expected: 02/19/2024 Start: 01-07-2024 Hepatitis B surface antibody level LDL CHOLESTEROL [facility] Start: 01-04-2024 End: 03-05-2024 25-hydroxyvitamin D3 [Mass/volume] in Serum or Plasma VITAMIN D 25 HYDROXY Lab Routine Vitamin D deficiency Expected: 01/04/2024 (Approximate), Expires: 03/05/2024 [facility] Work Phone: Comment on above: Expected: 01/04/2024 (Approximate), Expi res: 03/05/2024 Start: 01-04-2024 End: 03-05-2024 ALBUMIN/CREAT RATIO RND UR ALBUMIN/CREAT RATIO RND UR Lab Routine Macroalbuminuric diabetic nephropathy (HCC) Expected: 01/04/2024 (Approximate), Expires: 03/05/2024 [facility] Work Phone: Comment on above: Expected: 01/04/2024 (Approximate), Expi res: 03/05/2024 Start: 01-04-2024 End: 03-05-2024 CBC panel - Blood by Automated count CBC Lab Routine Hypertension goal BP (blood pressure) < 150/90 Expected: 01/04/2024 (Approximate), Expires: 03/05/2024 [facility] Work Phone: Comment on above: Expected: 01/04/2024 (Approximate), Expi res: 03/05/2024 Start: 01-04-2024 End: 03-05-2024 Comprehensive metabolic 2000 panel - Serum or Plasma COMP METABOLIC PANEL Lab Routine Type 2 diabetes mellitus with stage 3b chronic kidney disease, with long-term current use of insulin (HCC) Hypertension goal BP (blood pressure) < 150/90 Expected: 01/04/2024 (Approximate), Expires: 03/05/2024 [facility] Work Phone: Comment on above: Expected: 01/04/2024 (Approximate), Expi res: 03/05/2024 Start: 01-04-2024 End: 03-05-2024 Hemoglobin A1c in Blood HGB A1C Lab Routine Type 2 diabetes mellitus with stage 3b chronic kidney disease, with long-term current use of insulin (HCC) Expected: 01/04/2024 (Approximate), Expires: 03/05/2024 [facility] Work Phone: Comment on above: Expected: 01/04/2024 (Approximate), Expi res: 03/05/2024 Start: 01-04-2024 End: 04-14-2024 Lipid 1996 panel - Serum or Plasma LIPID PANEL BASIC Lab Routine Type 2 diabetes mellitus with stage 3b chronic kidney disease, with long-term current use of insulin (HCC) Expected: 01/04/2024 (Approximate), Expires: 04/14/2024 [facility] Work Phone: Comment on above: Expected: 01/04/2024 (Approximate), Expi res: 04/14/2024 Start: 01-04-2024 End: 03-05-2024 Urate [Mass/volume] in Serum or Plasma URIC ACID BLOOD Lab Routine Hyperuricemia Expected: 01/04/2024 (Approximate), Expires: 03/05/2024 [facility] Work Phone: Comment on above: Expected: 01/04/2024 (Approximate), Expi res: 03/05/2024 Start: 01-04-2024 End: 03-05-2024 Urinalysis complete panel - Urine URINALYSIS, WITH MICROSCOPIC Lab Routine Macroalbuminuric diabetic nephropathy (HCC) Expected: 01/04/2024 (Approximate), Expires: 03/05/2024 [facility] Work Phone: Comment on above: Expected: 01/04/2024 (Approximate), Expi res: 03/05/2024 Start: 11-05-2023 Advance Directive Discussion Advance Directive Discussion [facility] Start: 11-05-2023 Depression Assessment Depression Assessment [facility] Start: 10-02-2023 Glaucoma screening Dilated Retinal Exam [facility] Start: 10-02-2023 Hepatitis C antibody, confirmatory test DILATED RETINAL EXAM [facility] Start: 09-23-2023 Hepb vaccine adult 3 dose schedule for im use HEP B VACCINE, 3-DOSE, AGE 20+ YR (ENGERIX-B, RECOMBIVAX HB) Immunization/Injection Routine Encounter for immunization Expected: 09/23/2023 [facility] Work Phone: Comment on above: Expected: 09/23/2023 Start: 07-21-2023 End: 08-04-2023 COVID & INFLUENZA A/B & RSV NAAT, ROUTINE COVID & INFLUENZA A/B & RSV NAAT, ROUTINE Microbiology Routine URI, acute Expected: 07/21/2023, Expires: 08/04/2023 [facility] Work Phone: Comment on above: Expected: 07/21/2023, Expires: Start: 07-09-2023 Hemoglobin A1c/Hemoglobin.total in Blood HBA1C [facility] Start: 07-06-2023 Covid-19 Vaccine ( season) Covid-19 Vaccine ( season) [facility] Start: 07-06-2023 Influenza vaccination [facility] Start: 05-24-2023 Urine microalbumin profile DTAP,TDAP,TD (1 - Tdap) [facility] Comment on above: Postponed from 05/21/2007 (Declined at t his time) Start: 05-17-2023 Hepatitis B surface antibody level LDL CHOLESTEROL [facility] Start: 05-11-2023 End: 07-11-2023 25-hydroxyvitamin D3 [Mass/volume] in Serum or Plasma VITAMIN D 25 HYDROXY Lab Routine Vitamin D deficiency Expected: 05/11/2023 (Approximate), Expires: 07/11/2023 [facility] Work Phone: Comment on above: Expected: 05/11/2023 (Approximate), Expi res: 07/11/2023 Start: 05-11-2023 End: 07-11-2023 ALBUMIN/CREAT RATIO RND UR ALBUMIN/CREAT RATIO RND UR Lab Routine Type 2 diabetes mellitus with stage 3b chronic kidney disease, with long-term current use of insulin (HCC) Positive for macroalbuminuria Expected: 05/11/2023 (Approximate), Expires: 07/11/2023 [facility] Work Phone: Comment on above: Expected: 05/11/2023 (Approximate), Expi res: 07/11/2023 Start: 05-11-2023 End: 07-11-2023 Basic metabolic 2000 panel - Serum or Plasma BASIC METABOLIC PNL Lab Routine Type 2 diabetes mellitus with stage 3b chronic kidney disease, with long-term current use of insulin (HCC) Stage 3b chronic kidney disease (HCC) Expected: 05/11/2023 (Approximate), Expires: 07/11/2023 [facility] Work Phone: Comment on above: Expected: 05/11/2023 (Approximate), Expi res: 07/11/2023 Start: 01-07-2023 COVID-19 VACCINE (5 - Moderna series) COVID-19 VACCINE (5 - Moderna series) [facility] Start: 11-17-2022 Hemoglobin A1c/Hemoglobin.total in Blood HBA1C [facility] Start: 11-05-2022 ADVANCE DIRECTIVE DISCUSSION ADVANCE DIRECTIVE DISCUSSION [facility] Start: 11-05-2022 DEPRESSION ASSESSMENT DEPRESSION ASSESSMENT [facility] Start: 10-21-2022 3 comp foot exam completed DIABETIC FOOT EXAM [facility] Start: 10-21-2022 Diabetic foot examination Diabetic Foot Exam [facility] Start: 10-05-2022 Patient referral [facility] Work Phone: Start: 09-27-2022 Hepatitis C antibody, confirmatory test DILATED RETINAL EXAM [facility] Start: 09-24-2022 COVID-19 VACCINE (4 - Booster for Moderna series) COVID-19 VACCINE (4 - Booster for Moderna series) [facility] Comment on above: Postponed from 01/20/2022 (Declined at t his time) Postponed from 11/17 (Declined at this time) Start: 07-06-2022 Influenza vaccination INFLUENZA (#1) [facility] Start: 03-15-2022 Hemoglobin A1c/Hemoglobin.total in Blood HBA1C [facility] Start: 01-01-2022 Hepatitis B surface antibody level LDL CHOLESTEROL [facility] Start: 11-17-2021 COVID-19 VACCINE (4 - Booster for Moderna series) COVID-19 VACCINE (4 - Booster for Moderna series) [facility] Start: 11-05-2021 ADVANCE DIRECTIVE DISCUSSION ADVANCE DIRECTIVE DISCUSSION [facility] Start: 11-05-2021 DEPRESSION ASSESSMENT DEPRESSION ASSESSMENT [facility] Start: 05-03-2020 Medicare Annual Wellness Visit Medicare Annual Wellness Visit [facility] Start: 05-21-2007 Urine microalbumin profile DTAP,TDAP,TD (1 - Tdap) [facility] Start: 1997 Hepatitis B Vaccine (1 of 3 - Risk 3-dose series) Hepatitis B Vaccine (1 of 3 - Risk 3-dose series) [facility] Start: 1997 RSV Vaccine (1 - 1-dose 60+ series) RSV Vaccine (1 - 1-dose 60+ series) [facility] Bacteria identified in Urine by Culture URINE CULTURE Microbiology Routine Urinary frequency Ordered: 06/25/2022 [facility] Work Phone: Comment on above: Ordered: 06/25/2022 Bacteria identified in Urine by Culture BACTERIAL CULTURE, URINE Microbiology Routine Pelvic pain 06/02/2025 10:45 AM EDT [facility] Work Phone: COVID & INFLUENZA A/ B & RSV PCR, ROUTINE COVID & INFLUENZA A/B & RSV PCR, ROUTINE Microbiology Routine wheezing Exposure to influenza Viral illness 02/19/2025 9:35 AM EDT [facility] Work Phone: End: 09-18-2025 Echocardiography ECHO Cardiology Routine Heart failure with reduced ejection fraction (HCC) Hypertension goal BP (blood pressure) < 150/90 S/P CABG x 4 Paroxysmal atrial fibrillation with rapid ventricular response (HCC) 1 Occurrences starting 09/18/2024 until 09/18/2025 [facility] Work Phone: Comment on above: 1 Occurrences starting 09/18/2024 until 09/18/2025 Hepb vaccine adult 3 dose schedule for im use HEP B VACCINE, 3-DOSE, AGE 20+ YR (ENGERIX-B, RECOMBIVAX HB) Immunization/Injection Routine Encounter for immunization 1 Occurrences starting 08/23/2023 [facility] Work Phone: Comment on above: 1 Occurrences starting 08/23/2023 Patient Education [facility] Work Phone: Patient referral [facility] Work Phone: PFIZER-BIONTECH COVI D-19 VACCINE ( SEASON) AGE 12+ YR PFIZER-BIONTECH COVID-19 VACCINE ( SEASON) AGE 12+ YR Immunization/Injection Routine Encounter for immunization 1 Occurrences starting 08/23/2023 [facility] Work Phone: Comment on above: 1 Occurrences starting 08/23/2023 ROUTINE FLU A/B + RSV ROUTINE FL U A/B + RSV Lab Routine URI, acute Ordered: 07/21/2023 [facility] Work Phone: Comment on above: Ordered: 07/21/2023 SARS-CoV-2 (COVID-19 ) RNA [Presence] in Respiratory specimen by MARIS with probe detection COVID NAAT, UPPER RESPIRATORY, ROUTINE Microbiology Routine URI, acute Ordered: 07/21/2023 [facility] Work Phone: Comment on above: Ordered: 07/21/2023 UA DIP, URINE (POC) UA DIP, URIN E (POC) Lab Routine Urinary frequency Ordered: 06/25/2022 [facility] Work Phone: Comment on above: Ordered: 06/25/2022 [facility] Immunizations Immunization Date Immunization Notes Care Provider Lali villalobos 08-13-2024 Seasonal trivalent influenza vaccine, adjuvanted, preservative free [facility].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: [facility] 08-13-2024 influenza virus vacc ine, unspecified formulation Hal Holliday MA [facility] 08-31-2023 respiratory syncytia l virus (RSV) vaccine, bivalent (ABRYSVO) Anju Pearce MD Work Phone: [facility] Work Phone: 08-14-2023 influenza (HD-IIV4) vaccine, age 65+ yr, high dose, quadrivalent, PF (FLUZONE HIGH-DOSE) Ishmael Davis APRN.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: [facility] 08-14-2023 influenza virus vacc ine, unspecified formulation Ishmael Davis APRN.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: [facility] 07-12-2022 influenza (aIIV4) vaccine, age 65+ yr, quadrivalent, PF (FLUAD QUAD) Anju Pearce MD Work Phone: [facility] 07-12-2022 influenza, injectabl e, quadrivalent, contains preservative Anju Pearce MD Work Phone: [facility] Work Phone: 07-12-2022 influenza virus vacc ine, unspecified formulation Clement Cortes APRN.MACHINE BOSS Work Phone: [facility] 06-16-2022 tetanus toxoid, redu sadiq diphtheria toxoid, and acellular pertussis vaccine, adsorbed Anju Pearce MD Work Phone: [facility] 04-06-2022 pneumococcal polysaccharide vaccine, 23 valent Anju Pearce MD Work Phone: [facility] 08-17-2021 influenza (HD-IIV4) vaccine, age 65+ yr, high dose, quadrivalent, PF (FLUZONE HIGH-DOSE) Anju Pearce MD Work Phone: [facility] 12-24-2020 COVID-19 vaccine, fu ll dose (MODERNA) Anju Pearce MD Work Phone: [facility] 11-26-2020 COVID-19 vaccine, fu ll dose (MODERNA) Anju Pearce MD Work Phone: [facility] 09-04-2020 zoster vaccine recombinant Anju Pearce MD Work Phone: [facility] 07-30-2020 influenza, high dose seasonal, preservative-free Anju Pearce MD Work Phone: [facility] 04-30-2020 zoster vaccine recombinant Anju Pearce MD Work Phone: [facility] 09-02-2019 influenza, high dose seasonal, preservative-free Anju Pearce MD Work Phone: [facility] 08-05-2019 Influenza virus vaccine [facility] 07-19-2018 influenza, high dose seasonal, preservative-free Anju Pearce MD Work Phone: [facility] Work Phone: 08-13-2017 influenza, high dose seasonal, preservative-free Anju Pearce MD Work Phone: [facility] 08-23-2016 influenza, high dose seasonal, preservative-free Anju Pearce MD Work Phone: [facility] Work Phone: 10-23-2015 pneumococcal conjuga te vaccine, 13 valent Anju Pearce MD Work Phone: [facility] 08-21-2013 influenza virus vacc ine, unspecified formulation Anju Pearce MD Work Phone: [facility] 07-25-2012 influenza virus vacc ine, unspecified formulation Anju Pearce MD Work Phone: [facility] Work Phone: 08-07-2011 influenza virus vacc ine, unspecified formulation Anju Pearce MD Work Phone: [facility] 01-06-2011 zoster vaccine, live Anju ervin MD Work Phone: [facility] Work Phone: 08-10-2010 influenza virus vacc ine, unspecified formulation Anju Pearce MD Work Phone: [facility] Work Phone: 10-25-2009 novel influenza-H1N1 -09, all formulations Anju Pearce MD Work Phone: [facility] Work Phone: 08-23-2009 influenza virus vacc ine, unspecified formulation Anju Pearce MD Work Phone: [facility] Work Phone: 09-09-2008 influenza virus vacc ine, unspecified formulation Anju Pearce MD Work Phone: [facility] 09-04-2007 influenza virus vacc ine, unspecified formulation Anju Pearce MD Work Phone: [facility] Work Phone: 05-20-2007 tetanus and diphther ia toxoids, adsorbed, preservative free, for adult use (2 Lf of tetanus toxoid and 2 Lf of diphtheria toxoid) Anju Pearce MD Work Phone: [facility] 09-13-2006 influenza virus vacc ine, unspecified formulation Anju Pearce MD Work Phone: [facility] Work Phone: 08-31-2005 influenza virus vacc ine, unspecified formulation Anju Pearce MD Work Phone: [facility] Work Phone: 08-31-2005 pneumococcal polysaccharide vaccine, 23 valent Anju Pearce MD Work Phone: [facility] Work Phone: 08-31-2005 Pneumococcal Vaccine [facility] Work Phone: 08-31-2005 pneumococcal vaccine , unspecified formulation Dr. Anju Pearce Work Phone: [facility] Payers Date Payer Category Payer Self-pay [id number] 2020 Medicare MEDICARE MEDICAR E A AND B [id number] 2020-Present [phone] [address] [address] [place] [address] Medicare [id number] 2003 Private Health Insurance [place] [employer] [id number] 2003-Present [phone] [address] [place] [address] Indemnity [id number] 2003 Private Health Insurance [id number] 2003 Private Health Insurance [id number] 2002 Medicare [id number] 2002 Medicare [id number] Unknown [id number] Unknown [id number] Unknown [id number] Unknown [id number] Unknown [id number] Unknown [id number] Unknown [id number] Unknown [id number] Unknown [id number] Unknown [id number] Unknown [id number] Unknown [id number] Unknown [id number] Unknown [id number] Unknown [id number] Unknown [id number] Social History Date Type Detail Facility Start: 08-07-2011 Tobacco smoking status NHIS Never smoked tobacco [facility] Start: 01-05-2022 End: 05-14-2025 Alcohol intake Current non-drinker of alcohol (finding) [facility] Start: 05-02-2020 End: 09-14-2021 History SDOH Alcohol Frequency 1 [facility] Start: 08-30-2020 History SDOH Social Connections Phone 4 [facility] Start: 05-02-2020 End: 08-30-2020 History SDOH Social Connections Get Together 3 [facility] Start: 08-30-2020 End: 09-14-2021 History SDOH Stress 2 [facility] Start: 05-02-2020 History SDOH Financial 5 [facility] Start: 08-29-2020 Education 21 [facility] Start: 1935 Sex Assigned At Not on file [facility] Start: 01-09-2022 End: 06-25-2022 Exposure to SARS-CoV-2 (event) Not sure [facility] Start: 08-07-2011 Tobacco use and exposure Smokeless tobacco non-user [facility] Start: 11-17-2021 End: 10-04-2022 Tobacco smoking status NHIS Unknown if ever smoked [facility] Start: 06-28-2022 None [facility] Start: 01-17-2020 Spouse/ Significant Other [facility] Start: 01-17-2020 Non-smoker [facility] Start: 1935 Sex Assigned At Female [facility] Start: 01-09-2023 End: 09-12-2024 History of Social function [facility] Work Phone: Start: 01-09-2023 End: 09-12-2024 Tobacco use panel [facility] Work Phone: Start: 10-06-2012 Adult Depression Screening Assessment 3 [facility] Work Phone: How often to you hav e a drink containing alcohol? Never [facility] Do you feel stress - tense, restless, nervous, or anxious, or unable to sleep at night because your mind is troubled all the time - these days [OSQ] Only a little [facility] (I/We) worried wheeleazar er (my/our) food would run out before (I/we) got money to buy more. Never true [facility] In the past 12 month s, was there a time when you were not able to pay the mortgage or rent on time? No [facility] Do you belong to any clubs or organizations such as mu-ism groups, unions, fraternal or athletic groups, or school groups? Yes [facility] Are you now , , , , never or living with a partner? [facility] How hard is it for y ou to pay for the very basics like food, housing, medical care, and heating Not very hard [facility] Start: 01-05-2025 End: 06-14-2025 Tobacco smoking status NHIS Ex-smoker (finding) [facility] Medical Equipment Procedure Code Equipment Code Equipment Original Text Equipment Identifier Dates [id number], [id number], [id number], [id number] Start: 01-02-2022 End: 03-18-2025 Comment on above: [...] Facility 06-20-2025 Functional status Chair;Bathroom Privileg e [facility] Work Phone: 05-14-2025 Total score [AUDIT-C] 0 05/14/20 25 1:38 PM EDT Flores Bob MA [facility] 01-17-2020 Are you deaf, or do you have serious difficulty hearing No 01/17/2020 9:17 AM NICKIT Laurel Doyle, RITA No [facility] 01-17-2020 Are you blind, or do you have serious difficulty seeing, even when wearing glasses No 01/17/2020 9:17 AM Laurel Rizzo, RITA No [facility] 01-17-2020 Do you have serious difficulty walking or climbing stairs Yes 01/17/2020 9:17 AM Laurel Rizzo, RITA Yes [facility] 01-17-2020 Do you have difficul ty dressing or bathing Yes 01/17/2020 9:17 AM Laurel Rizzo, RITA Yes [facility] 01-17-2020 Because of a physica l, mental, or emotional condition, do you have difficulty doing errands alone such as visiting a physician's office or shopping Yes 01/17/2020 9:17 AM Laurel Rizzo, RITA Yes [facility] Mental Status Date Assessment Result Facility 06-20-2025 Cognitive function Voice/Name [facility] Work Phone: 06-14-2025 Cognitive function Level Of Cons ciousness Awake;Alert;Appropriate;Abbie Chowdary [facility] Work Phone: 01-05-2025 Cognitive function Level Of Cons ciousness Awake;Alert;Appropriate;Abbie Chowdary [facility] Work Phone: 01-17-2020 Because of a physica l, mental, or emotional condition, do you have serious difficulty concentrating, remembering, or making decisions No 01/17/2020 9:17 AM Laurel Rizzo, RITA No [facility] Clinical Notes 01-03-2020 to 07-16-2025 Telephone Encounter - Susana Harry LPN - 07/16/2025 1:44 PM EDTTelephone Encounter - Susana Harry LPN - 07/16/2025 1:44 PM EDT Note Date & Type Note Facility 07-16-2025 Telephone encounter Note Form atting of this note might be different from the original. Order faxed to [facility] 07-16-2025 Miscellaneous Notes Formattin g of this note might be different from the original. Order faxed to [facility] Requesting a different walker, send to [facility] documented in this encounter [facility] 07-15-2025 Telephone encounter Note Form atting of this note might be different from the original. Requesting a different walker, send to [facility] 07-03-2025 Telephone encounter Note Form atting of this note might be different from the original. Faxed to [facility] with office note Graciela Bernardo MA [facility] 07-03-2025 Miscellaneous Notes Formattin g of this note might be different from the original. Faxed to [facility] with office note Graciela Bernardo MA I placed an order for rollator. She may need an office note sent to [facility] as well. documented in this encounter [facility] 07-03-2025 Telephone encounter Note Form atting of this note might be different from the original. I placed an order for rollator. She may need an office note sent to [facility] as well. [facility] 07-03-2025 Telephone encounter Note Form atting of this note might be different from the original. Duplicate message see other susan Bernardo MA [facility] 07-03-2025 Miscellaneous Notes Formattin g of this note might be different from the original. Duplicate message see other susan Bernardo MA documented in this encounter [facility] 06-20-2025 Discharge summary Note Date/Time June 20, 2025 1:28pm [facility] Medical Records Department [address] [place] [address] Discharge Summary 06/20/25 1320 MR#: [id number] Acct: [id number] Name: CICI WOODWARD Rep #:[id number] : 1935 89 From: Jack simpson MD PCP: Dr. Anju Pearce MD Status:AD M IN [facility] Prov[facility] Date of Admission: 06/14/25 Primary Care [...] % (Auto) 68.4, Lymph % (Auto) 22.2, [place] % (Auto) 7.4, Eos % (Auto) 1.0, [...] Self Care Charges/Coding Visit Charges Inpatient E&M: 37186 Disch Hosp >30min 06/20/25 1328 <Electronically signed by Jack Mae MD> Cosigner Signature (if applicable): CC: Dr. Anju Pearce MD; Dr. Jack Mae MD~ Signed [facility] Work Phone: 1(657) 716-311108-16-2025 Discharge summary Author Jack Mae [facility] Note Date/Time June 20, 2025 12 :04pm [facility] Medical Records Department [address] [place] [address] Instructions for Home/Discharge Instructions 06/20/25 1200 MR#: [id number] Acct: [id number] Name: CICI WOODWARD Rep #:[id number] : 1935 89 From: Jack simpson MD [...] (3 mL) insulin pen 7 unit subcut [facility] Rx Instructions: 8 units AM, 3 units, 6 units dinner insulin glargine-yfgn 100 unit/mL (3 mL) insulin pen 14 unit subcut [facility] Referrals / Follow Up: Ta Phillips MD [...] MD; Dr. Anju Pearce MD ~ Signed [facility] Work Phone: 1(199) 319-669408-16-2025 Discharge summary [facility] Medical Records Department [address] [place] [address] Discharge Summary 06/20/25 1320 MR#: [id number] Acct: [id number] Name: CICI WOODWARD Rep #:[id number] : 1935 89 From: Jack simpson MD PCP: Dr. Anju Pearce MD Status:AD M IN Location: [place] [address] Providers Date of Admission: 06/14/25 Primary Care [...] Neut% (Auto) 68.4, Lymph % (Auto) 22.2, [place] % (Auto) 7.4, Eos % (Auto) 1.0, [...] Primary Care Provider: Anju Pearce Consulting Providers: Vnetura Ivy; Ta Phillips Instructions Additional Instructions / [...] Self Care Charges/Coding Visit Charges Inpatient E&M: 23874 Disch Hosp >30min 06/20/25 7670 Cosigner Signature (if applicable): CC: Dr. Anju Pearce MD; Dr. Jack Mae MD~ Signed [facility]08-16-2025 [facility] Medical Records Department [address] [place] [address] Discharge Summary 06/20/25 1320 MR#: [id number] Acct: [id number] Name: CIIC WOODWARD Rep #: [id number] : 1935 89 From: Jack Mae MD PCP: Dr. Anju Pearce MD Status:ADM IN Location: [place] [address] Providers Date of Admission: 06/14/25 Primary Care [...] as well for evalu (more content not included)...[facility]08-16-2025 Discharge summary [facility] Medical Records Department [address] [place] [address] Instructions for Home/Discharge Instructions 06/20/25 1200 MR#: [id number] Acct: [id number] Name: CICI WOODWARD Rep #:[id number] : 1935 89 From: Jack simpson MD [...] MD; Dr. Anju Pearce MD ~ Signed [facility]08-15-2025 Progress note Author Jack Mae [facility] Note Date/Time June 19, 2025 4: 17pm [facility] Medical Records Department [address] [place] [address] Progress Note - Hospitalist 06/19/25 1614 MR#: [id number] Acct: [id number] Name: CICI WOODWARD Rep #:[id number] : 1935 89 From: Jack simpson MD PCP: Dr. Anju Pearce MD Status:AD M IN Location: [place] HW610-8 Subjective Subjective Feels little bit better today, [...] % (Auto) 69.7, Lymph % (Auto) 19.1, [place] % (Auto) 8.8, Eos % (Auto) 1.3, [...] DVT: SCDs Charges/Coding Visit Charges Inpatient E&M: 83151 Subs Hosp L2 06/19/25 1617 <Electronically signed by Jack Mae MD> Cosigner Signature (if applicable): CC: ~ Signed [facility] Work Phone: 1(898) 709-568708-15-2025 Progress note [facility] Medical Records Department [address] [place] [address] Progress Note - Hospitalist 06/19/25 1614 MR#: [id number] Acct: [id number] Name: CICI WOODWARD Rep #:[id number] : 1935 89 From: Jack simpson MD PCP: Dr. Anju Pearce MD Status:AD M IN Location: [place] 016845-1 Subjective Subjective Feels little bit better today, [...] Neut% (Auto) 69.7, Lymph % (Auto) 19.1, [place] % (Auto) 8.8, Eos % (Auto) 1.3, [...] DVT: SCDs Charges/Coding Visit Charges Inpatient E&M: 83267 Subs Hosp L2 06/19/25 1617 Cosigner Signature (if applicable): CC: ~ Signed [facility]08-14-2025 Progress note Author Jack Mae [facility] Note Date/Time June 18, 2025 11 :45am [facility] Medical Records Department [address] [place] [address] Progress Note - Hospitalist 06/18/25 1140 MR#: [id number] Acct: [id number] Name: CICI WOODWARD Rep #:[id number] : 1935 89 From: Jack simpson MD PCP: Dr. Anju Pearce MD Status:AD M IN Location: [place] ER345-6 Subjective Subjective Feels that she might be [...] (Auto) 70.8 H, Lymph % (Auto) 19.4, [place] % (Auto) 8.3, Eos % (Auto) 0.7, [...] DVT: Heparin Charges/Coding Visit Charges Inpatient E&M: 14043 Subs Hosp L2 06/18/25 1143 <Electronically signed by Jack Mae MD> Cosigner Signature (if applicable): CC: ~ Signed ADDENDUM by Dr. Jack Mae MD on 06/18/25 at 1144 Addendum Will obtain a fecal occult to evaluate her anemia. 06/18/25 1144<Electronically signed by Jack Mae MD> Cosigner Signature (if applicable): cc: ~* Signed [facility] Work Phone: 1(923) 394-555308-14-2025 Progress note [facility] Medical Records Department [address] [place] [address] Progress Note - Hospitalist 06/18/25 1140 MR#: [id number] Acct: [id number] Name: CICI WOODWARD Rep #:[id number] : 1935 89 From: Jack simpson MD PCP: Dr. Anju Pearce MD Status:AD M IN Location: [address] Subjective Subjective Feels that she might [...] (Auto) 70.8 H, Lymph % (Auto) 19.4, [place] % (Auto) 8.3, Eos % (Auto) 0.7, [...] DVT: Heparin Charges/Coding Visit Charges Inpatient E&M: 40637 Subs Hosp L2 06/18/25 1143 Cosigner Signature (if applicable): CC: ~ Signed ADDENDUM by Dr. Jack Mae MD on 06/18/25 at 1144 Addendum Will obtain a fecal occult to evaluate her anemia. 06/18/25 1144 Cosigner Signature (if applicable): cc: ~* Signed [facility]08-13-2025 Progress note Author Jack Mae [facility] Note Date/Time June 17, 2025 9: 49am [facility] Medical Records Department [address] [place] [address] Progress Note - Hospitalist 06/17/25 0947 MR#: [id number] Acct: [id number] Name: CICI WOODWARD Rep #:[id number] : 1935 89 From: Jack simpson MD PCP: Dr. Anju Pearce MD Status:AD M IN Location: [facility] BW430-1 Subjective Subjective Oxygen requirements are improving however [...] % (Auto) 66.2, Lymph % (Auto) 25.2, [place] % (Auto) 7.5, Eos % (Auto) 0.3, [...] possible. Correlate with fever status. Reading Location: [facility] Rhythm Strip Rhythm Strip: Sinus Rhythm Rate: [...] DVT: Heparin Charges/Coding Visit Charges Inpatient E&M: 89929 Subs Hosp L2 06/17/25 0949 <Electronically signed by Jack Mae MD> Cosigner Signature (if applicable): CC: ~ Signed [facility] Work Phone: 1(517) 375-222108-13-2025 Progress note [facility] Medical Records Department [address] [place] [address] Progress Note - Hospitalist 06/17/25 0947 MR#: [id number] Acct: [id number] Name: CICI WOODWARD Rep #:[id number] : 1935 89 From: Jack simpson MD PCP: Dr. Anju Pearce MD Status:AD M IN Location: [place] [address] Subjective Subjective Oxygen requirements are improving however [...] Neut% (Auto) 66.2, Lymph % (Auto) 25.2, [place] % (Auto) 7.5, Eos % (Auto) 0.3, [...] possible. Correlate with fever status. Reading Location: [facility] Rhythm Strip Rhythm Strip: Sinus Rhythm Rate: [...] DVT: Heparin Charges/Coding Visit Charges Inpatient E&M: 43771 Subs Hosp L2 06/17/25 7796 Cosigner Signature (if applicable): CC: ~ Signed [facility]08-12-2025 Progress note Author Jack Mae [facility] Note Date/Time June 16, 2025 7: 30pm [facility] Medical Records Department [address] [place] [address] Progress Note 06/16/251926 MR#: [id number] Acct: [id number] Name: CICI WOODWARD Rep #:[id number] : 1935 89 From: Jack simpson MD PCP: Dr. Anju Pearce MD Status:AD M IN Location: [facility] PQ424-4 Progress Note Notified that she was having [...] Cosigner Signature (if applicable): CC: ~ Signed [facility] Work Phone: 1(804) 187-387108-12-2025 Radiology Diagnostic study note [facility] Imaging Services [address] [place] [address] Chest 1 View (Portable) MR#: [id number] Acct: [id number] Name: CICI WOODWARD Rep #: [id number] : 1935 89 From: Christiano Alfredo MD PCP: Dr. Anju Pearce MD Status: AD M IN Study:Chest 1 View (Portable) Date of Exam: 06/16/25 Exam# [id number] Ordering Dr: Jack Mae MD PROCEDURE: CHEST 1 VIEW (PORTABLE) 06/16/2025 REASON FOR EXAM: SHORTNESS OF BREATH AND WHEEZING. TECHNIQUE: Frontal view of the chest. COMPARISON: 06/14/2025. FINDINGS: Cjjkq-oggkanf-ddoh-left basilar consolidative opacities in a pattern favoring edema. Infection is possible. The heart is enlarged. Prior sternotomy. RAD/Chest 1 View (Portable) IMPRESSION: Probable worsening edema in the setting of cardiomegaly. Infection is possible. Correlate with fever status. Reading Location: [facility] CC: Dr. Anju Pearce MD; Dr. Jack Mae MD ~ Assistant Women'S Tennis Coach: Signed [facility]08-12-2025 Progress note [facility] Medical Records Department [address] [place] [address] Progress Note 06/16/251926 MR#: [id number] Acct: [id number] Name: CICI WOODWARD Rep #:[id number] : 1935 89 From: Jack simpson MD PCP: Dr. Anju Pearce MD Status:AD M IN Location: [facility] MQ985-0 Progress Note Notified that she was having [...] Cosigner Signature (if applicable): CC: ~ Signed [facility]08-12-2025 NoteHNO ID: [id number] Author: HAL HOLLIDAY MA Service: ? Author Type: Air Route Traffic Controller Type: Progress Notes Filed: 06/16/2025 15:32 Note [...] Hal Holliday MA June 16, 2025 3:29 [facility]08-12-2025 History of Present illness Narrative* [...] 16, 2025 3:29 PM [facility] Progress note Author Jack Mae [facility] Note Date/Time June 16, 2025 11 :49am [facility] Medical Records Department [address] [place] [address] Progress Note - Hospitalist 06/16/25 1146 MR#: [id number] Acct: [id number] Name: CICI WOODWARD Rep #:[id number] : 1935 89 From: Jack simpson MD PCP: Dr. Anju Pearce MD Status:AD M IN Location: [place] ZP230-4 Subjective Subjective Renal function worsened overnight, her [...] % (Auto) 68.7, Lymph % (Auto) 22.7, [place] % (Auto) 8.0, Eos % (Auto) 0.1, [...] DVT: Heparin Charges/Coding Visit Charges Inpatient E&M: 85281 Subs Hosp L2 06/16/25 1142 <Electronically signed by Jack Mae MD> Cosigner Signature (if applicable): CC: ~ Signed [facility] Work Phone: 1(420) 896-506608-12-2025 Progress note [facility] Medical Records Department [address] [place] [address] Progress Note - Hospitalist 06/16/25 1146 MR#: [id number] Acct: [id number] Name: CICI WOODWARD Rep #:[id number] : 1935 89 From: Jack simpson MD PCP: Dr. Anju Pearce MD Status:AD M IN Location: [place] IE460-6 Subjective Subjective Renal function worsened overnight, her [...] Neut% (Auto) 68.7, Lymph % (Auto) 22.7, [place] % (Auto) 8.0, Eos % (Auto) 0.1, [...] Affect, Appropriate Assessment & Plan Assessment/Plan (1) SAH (acute kidney injury): PLAN: Plan 1. SHA [...] DVT: Heparin Charges/Coding Visit Charges Inpatient E&M: 32760 Subs Hosp L2 06/16/25 1149 Cosigner Signature (if applicable): CC: ~ Signed [facility]08-12-2025 NotePatient Outreach (NETNAV) CICI WOODWARD I ([id number]) 1935 F Date Time Provider Department 06/16/25 [...] Upset PREDNISONE 09/05/2012 11 - Vomiting STATINS ([id number] REDUCTAS*05/25/2009 5 - Intolerance ULTRAM (TRAMADOL HCL) 01/17/2013 11 - Vomiting Date Reviewed: 05/14/2025 Reviewed by: Ishmael Davis APRN.BARBED WIRE MACHINE OPERATOR - Fully Assessed Reason for Visit: Population [...] 3 times daily Insulin Yes - Insulin [place], Disposable, (BD ULTRA-FINE JOHN PEN NEEDLE) 32 [...] (HCC) [N18.32] 01/20/2022 Hypertensi (more content not included)...[facility]08-11-2025 Progress note Author Jack Mae [facility] Note Date/Time June 15, 2025 5: 31pm [facility] Medical Records Department [address] [place] [address] Progress Note - Hospitalist 06/15/25 1704 MR#: [id number] Acct: [id number] Name: CICI WOODWARD Rep #:[id number] : 1935 89 From: Jack simpson MD PCP: Dr. Anju Pearce MD Status:AD M IN [facility] Subjective Subjective Doing well, feels better than [...] (Auto) 74.8 H, Lymph % (Auto) 19.5, [place] % (Auto) 4.8, Eos % (Auto) 0.0, [...] 06:30 IMPRESSION: NORMAL RENAL ULTRASOUND. Reading Location: [place] [address] Rhythm Strip Rhythm Strip: Sinus Rhythm Rate: [...] DVT: Heparin Charges/Coding Visit Charges Inpatient E&M: 14810 Subs Hosp L2 06/15/25 1731 <Electronically signed by Jack Mae MD> Cosigner Signature (if applicable): CC: ~ Signed [facility] Work Phone: 1(363) 665-777508-11-2025 Progress note [facility] Medical Records Department [address] [place] [address] Progress Note - Hospitalist 06/15/25 1704 MR#: [id number] Acct: [id number] Name: CICI WOODWARD Rep #:[id number] : 1935 89 From: Jack simpson MD PCP: Dr. Anju Pearce MD Status:AD M IN Location: [place] XV966-4 Subjective Subjective Doing well, feels better than [...] (Auto) 74.8 H, Lymph % (Auto) 19.5, [place] % (Auto) 4.8, Eos % (Auto) 0.0, [...] 06:30 IMPRESSION: NORMAL RENAL ULTRASOUND. Reading Location: [place] [address] Rhythm Strip Rhythm Strip: Sinus Rhythm Rate: [...] DVT: Heparin Charges/Coding Visit Charges Inpatient E&M: 18469 Subs Hosp L2 06/15/25 1733 Cosigner Signature (if applicable): CC: ~ Signed [facility]08-11-2025 Radiology Diagnostic study note [facility] Imaging Services [address] [place] [address] Kidney and Bladder MR#: [id number] Acct: [id number] Name: CICI WOODWARD Rep #: [id number] : 1935 F 89 From: Darrick Booker MD PCP: Dr. Anju Pearce MD Status: AD M IN Study:Kidney and Bladder Date of Exam: 0 06/15/25 Exam# [id number] Ordering Dr: Tamara Ivy MD PROCEDURE: KIDNEY AND BLADDER 06/15/2025 REASON FOR EXAM: SHA TECHNIQUE: KIDNEY AND BLADDER COMPARISON: None FINDINGS: Kidneys: Normal renal sizes, parenchymal thicknesses, and echotextures. Black: No hydronephrosis. Cysts or Masses: No cysts [...] Bladder IMPRESSION: NORMAL RENAL ULTRASOUND. Reading Location: [place] [address] CC: Dr. Ventura Ivy MD; Dr. Anju Pearce MD ~ Assistant Women'S Tennis Coach: Signed [facility]08-10-2025 History and physical note Author Ventura Ivy [facility] Note Date/Time June 14, 2025 12 :16pm [facility] Medical Records Department [address] [place] [address] H&P Exam - Hospitalist 06/14/25 1131 MR#: [id number] Acct: [id number] Name: CICI WOODWARD Rep #:[id number] : 1935 89 From: Ventura Ivy MD PCP: Dr. Anju Pearce MD Status:AD M IN Location: [facility] KI376-3 HPI - General General Date of Admission: [...] nursing floor as a case of SHA [facility] Medical History Atherosclerosis of coronary artery of [place] heart without angina pectoris Bilateral renal cysts [...] 77.1 H, Lymph % (Auto) 16.9 L, [place] % (Auto) 4.9, Eos % (Auto) 0.3, [...] Clarity Clear, Urine pH 6.0, Ur Specific [place] 1.020, Urine Protein 500 H, Urine Glucose [...] Cardiomegaly with mild vascular congestion. Reading Location: [facility] Assessment & Plan Assessment/Plan (1) SHA (acute [...] ? Treated with laser therapy at the [facility] 10. DVT prophylaxis ? Subcu heparin 11. Physical deconditioning ? Requested for PT OT eval and rn social services to assist with discharge planning Time spent [...] Multi Select Codes Visit Charges Visit Charges: 33037 Init Hosp L3 Hospitalists' Procedures Procedures: 24287 Advncd Care Plan 30 Min 06/14/25 1216 <Electronically signed by Ventura Ivy MD> Cosigner Signature (if applicable): CC: Dr. Ventura Ivy MD; Dr. Anju Pearce MD~ Signed [facility] Work Phone: 1(545) 442-752608-10-2025 Discharge summary Author Homero Mendosa [facility] Note Date/Time June 14, 2025 11 :15am [facility] Medical Records Department [address] [place] [address] Emergency Department Summary 06/14/25 MR#: [id number] Acct: [id number] Name: CICI WOODWARD Rep #:[id number] : 1935 89 From: Homero Mendosa MD [...] stroke, chronickidney disease, diabetes, hypertension and prior SD with CABG. States she just feels generally weak. She was seen at the [facility] urgent care. Diagnosed with a possible [...] similar symptoms: Yes Recent Illness/Hospitalization: No PFSH [facility] Medical History Atherosclerosis of coronary artery of [place] heart without angina pectoris Bilateral renal cysts [...] are nontender. Moving all 4 extremities. Normal bus starter strength bilaterally. Normal dorsi plantarflexion. Calves are [...] have a primary care physician in the [facility] on page to ensure close follow-up [...] 77.1 H Lymph % (Auto) 16.9 L [place] % (Auto) 4.9 Eos % (Auto) 0.3 [...] Clarity Clear Urine pH 6.0 Ur Specific [place] 1.020 Urine Protein 500 H Urine Glucose [...] Cardiomegaly with mild vascular congestion. Reading Location: [facility] Chest x-ray, 2 views, AP and lateral, [...] rate of 72 no acute signs of SD or ischemia. Right bundle branch block. Discharge [...] MD [Primary Care Provider] - Print Language: Montenegrin Disposition Disposition: Acute Care Hospital [facility] What to do if you have Problems For any increased pain, shortness of breath, bleeding, nausea or vomiting, chestpain, or any unexpected problems, contact your Primary Care Provider. Call [facility] ([phone]) or report to the closest Emergency Room. Call 911 if necessary. 06/14/25 1115 <Electronically signed by Homero Mendosa MD> Cosigner Signature (if applicable): CC: Dr. Anju Pearce MD ~ Signed [facility] Work Phone: 1(110) 945-420108-10-2025 History and physical note [facility] Medical Records Department [address] [place] [address] H&P Exam - Hospitalist 06/14/25 1131 MR#: [id number] Acct: [id number] Name: CICI WOODWARD Rep #:[id number] : 1935 89 From: Ventura Ivy MD PCP: Dr. Anju Pearce MD Status:AD M IN Location: [facility] HW971-8 HPI - General General Date of Admission: [...] nursing floor as a case of SHA [facility] Medical History Atherosclerosis of coronary artery of [place] heart without angina pectoris Bilateral renal cysts [...] 77.1 H, Lymph % (Auto) 16.9 L, [place] % (Auto) 4.9, Eos % (Auto) 0.3, [...] Clarity Clear, Urine pH 6.0, Ur Specific [place] 1.020, Urine Protein 500 H, Urine Glucose [...] Cardiomegaly with mild vascular congestion. Reading Location: [id number] Assessment & Plan Assessment/Plan (1) SHA (acute [...] ? Treated with laser therapy at the [facility] 10. DVT prophylaxis ? Subcu heparin 11. Physical deconditioning ? Requested for PT OT eval and rn social services to assist with discharge planning Time spent [...] Multi Select Codes Visit Charges Visit Charges: 10078 Init Hosp L3 Hospitalists' Procedures Procedures: 76622 Advncd Care Plan 30 Min 06/14/25 1216 Cosigner Signature (if applicable): CC: Dr. Ventura Ivy MD; Dr. Anju Pearce MD~ Signed [facility]08-10-2025 Discharge summary [facility] Medical Records Department [address] [place] [address] Emergency Department Summary 06/14/25 MR#: [id number] Acct: [id number] Name: CICI WOODWARD Rep #:[id number] : 1935 89 From: Homero Mendosa MD [...] stroke, chronickidney disease, diabetes, hypertension and prior SD with CABG. States she just feels generally weak. She was seen at the [facility] urgent care. Diagnosed with a possible [...] similar symptoms: Yes Recent Illness/Hospitalization: No PFSH [facility] Medical History Atherosclerosis of coronary artery of [place] heart without angina pectoris Bilateral renal cysts [...] quadrants are nontender. Movingall 4 extremities. Normal bus starter strength bilaterally. Normal dorsi plantarflexion. Calves are [...] have a primary care physician in the [facility] on page to ensure close follow-up [...] 77.1 H Lymph % (Auto) 16.9 L [place] % (Auto) 4.9 Eos % (Auto) 0.3 [...] Clarity Clear Urine pH 6.0 Ur Specific [place] 1.020 Urine Protein 500 H Urine Glucose [...] Cardiomegaly with mild vascular congestion. Reading Location: [facility] Chest x-ray, 2 views, AP and lateral, [...] rate of 72 no acute signs of SD or ischemia. Right bundle branch block. Discharge [...] MD [Primary Care Provider] - Print Language: [place] Disposition [facility] [facility] What to do if you have Problems For any increased pain, shortness of breath, bleeding, nausea or vomiting, chestpain, or any unexpected problems, contact your Primary Care Provider. Call [facility] ([phone]) or report tothe closest Emergency Room. Call 911 if necessary. 06/14/25 1115 Cosigner Signature (if applicable): CC: Dr. Anju Pearce MD ~ Signed [facility]08-10-2025 NoteHNO ID: [id number] Author: CAMERON FREEMAN MD Service: ? Author Type: Physician Type: Progress Notes Filed: 06/14/2025 11:15 Note Text: Received page from [facility]. Patient with hx of CKD, CAD [...] let our scheduling team and Dr Pearce know.[facility] 06-14-2025 History of Present illness Narrative* aCmeron Freeman MD - 06/14/2025 11:08 AM EDT Received page from [facility]. Patient with hx of CKD, CAD [...] and Dr Pearce know. documented in this encounterChillicothe [facility]08-10-2025 Radiology Diagnostic study note [facility] Imaging Services [address] [place] [address] Chest PA and Lateral MR#: [id number] Acct: [id number] Name: CICI WOODWARD Rep #: [id number] : 1935 F 89 From: Jan Goss MD PCP: Dr. Anju Pearce MD Status: RE G ER Study:Chest PA and Lateral Date of Exam: 06/14/25 Exam# [id number] Ordering Dr: Luz Mendosa MD PROCEDURE: CHEST [...] Cardiomegaly with mild vascular congestion. Reading Location: [id number] CC: Dr. Homero Mendosa MD; Dr. Anju Pearce MD ~ Assistant Women'S Tennis Coach: Signed [facility]07-29-2025 NoteHNO ID: [id number] Author: CLEMENT CORTES APRN.[facility] Service: ? Author Type: Nurse Practitioner Type: Progress Notes Filed: 06/02/2025 10:21 Note Text: [facility] [place] Veronica Woodward is a 89 year old [...] causes of hematuria. and Recording using ambient Gameleon software for draft documentation of the visit was discussed with the patient/authorized consumer sales representative; all questions welcomed and answered. Patient/authorized consumer sales representative agreed to proceed MDM ProceduresKind[facility]07-29-2025 History of Present illness Narrative* Clement Cortes [...] other causes of hematuria. and Recording using Per V[employer] software for draft documentation of the visit was discussed with the patient/authorized consumer sales representative; all questions welcomed and answered. Patient/authorized consumer sales representative agreed to proceed MDM Procedures documented in this encounterChillicothe [facility] Center07-10-2025 History of Present illness Narrative* Ishmael Davis, GLOBAL CTO.BARBED WIRE MACHINE OPERATOR - 05/14/2025 1:40 PM EDT Images from [...] - Chelo Corbin does not see a locomotive engineer. - Reports minimal thirst and low fluid intake, stating she could go all day without a drink of water. - Drinks one cup of coffee daily; consumes quite a bit of milk. - Nocturia x3-4 times per night; keeps a bottle of water in the bathroom to sip during the night. Anemia: - Recent labs indicate slight anemia. - Chelo Corbin is taking umpj-tja-nyxiguk iron supplement daily with meals; denies gastrointestinal [...] and labs in 3 months Ishmael Davis APRN.BARBED WIRE MACHINE OPERATOR documented in this encounterChillicothe Va Medical Center07-10-2025 NoteHNO ID: [id number] Author: ISHMAEL DAVIS APRN.CNS Service: ? Author [...] - Chelo Corbin does not see a locomotive engineer. - Reports minimal thirst and low fluid intake, stating she could go all day without a drink of water. - Drinks one cup of coffee daily; consumes quite a bit of milk. - Nocturia x3-4 times per night; keeps a bottle of water in the bathroom to sip during the night. Anemia: - Recent labs indicate slight anemia. - Chelo Corbin is taking pyyr-ccs-ylqfqms iron supplement daily with meals; denies gastrointestinal [...] and labs in 3 months Ishmael Davis APRN.[facility]07-10-2025 Instructions* Patient Instructions* Ishmael Davis APRN.BARBED WIRE MACHINE OPERATOR - 05/14/2025 1:31 PM EDT Latest Ref [...] review all the medicines you take, even cwwi-rgs-bchbsph medicines. As you get older, the way [...] have certain medical conditions. documented in this encounterChillicothe Va Medical Center07-07-2025 NoteHNO ID: [id number] Author: HAL HOLLIDAY MA Service: ? Author Type: Air Route Traffic Controller Type: Progress Notes Filed: 05/11/2025 16:03 Note [...] Hal Holliday MA May 11, 2025 4:01 [facility]07-05-2025 NoteHNO ID: [id number] Author: ANJU PEARCE MD Service: ? Author Type: Physician Type: Progress Notes Filed: 05/11/2025 07:44 Note Text: Patient already has orders from 01/16/25 for May labs to be done. Make sure patient aware has labs ordered so may do prior to appointment with Ishmael or day if too difficult to come to office twice the week of her appointment.[facility]07-05-2025 History of Present illness Narrative* Anju Pearce [...] 06, 2025 10:35 AM documented in this encounterChillicothe [facility] Center07-02-2025 NoteHNO ID: [id number] Author: HAL HOLLIDAY MA Service: ? Author Type: Air Route Traffic Controller Type: Progress Notes Filed: 05/11/2025 07:44 Note [...] Hal Holliday MA May 06, 2025 10:35 [facility]07-02-2025 NotePatient Outreach (NETNAV) CICI WOODWARD I ([id number]) 1935 F Date Time Provider Department 05/06/25 [...] Upset PREDNISONE 09/05/2012 11 - Vomiting STATINS (KVIEVMD-VKL-TIJ REDUCTAS*05/25/2009 5 - Intolerance ULTRAM (TRAMADOL HCL) [...] 3 times daily Insulin Yes - Insulin [place], Disposable, (BD ULTRA-FINE JOHN PEN NEEDLE) 32 [...] [E78.00] Osteopenia [M89.9, M94.9] (more content not included)...[facility]06-26-2025 Evaluation note* Diagnosis Onset Date Resolution Status Admit Date Atherosclerosis of coronary artery of [place] heart without angina pectoris chronic April 30, 2025 3:19pm Benign hypertension chronic April 30, 2025 3:19pm HLD (hyperlipidemia) chronic April 30, 2025 3:19pm Ischemic cardiomyopathy chronic [facility] 2024 3:19pm Paroxysmal atrial fibrillati on with RVR chronic April 30, 2025 3:19pm Acute dehydration acute June 14, 2025 11:09am Diarrhea acute June 14, 2 025 11:09am History of diabetes mellitus acute June 14, 2025 11:09am History of hypertension acute A ugust 2024 11:09am Chronic kidney disease chronic [facility] 2024 11:09am [facility] Work Phone: 1(623) 741-356906-26-2025 Evaluation note* Diagnosis Onset Date Resolution Status Admit Date Atherosclerosis of coronary artery of [place] heart without angina pectoris chronic April 30, 2025 3:19pm Benign hypertension chronic April 30, 2025 3:19pm HLD (hyperlipidemia) chronic April 30, 2025 3:19pm Ischemic cardiomyopathy chronic [facility] 2024 3:19pm Paroxysmal atrial fibrillati on with [...] 15-29 ml/min chronic June 14, 2025 11:09am [facility] Work Phone: 1(437) 277-575106-26-2025 Evaluation note* Diagnosis Onset Date Resolution Status Admit Date Atherosclerosis of coronary artery of [place] heart without angina pectoris chronic April 30, [...] 2025 11:09am Atherosclerosis of coronary artery of [place] heart without angina pectoris chronic July 02 1:43pm Benign hypertension chronic Augus t 2024 1:43pm HLD (hyperlipidemia) chronic Augu [facility] 2024 1:43pm Ischemic cardiomyopathy chronic A ugust 2024 1:43pm Paroxysmal atrial fibrillati on with RVR chronic July 02 1:43pm [facility] Work Phone: 1(621) 404-626506-17-2025 Telephone encounter Note* Telephone Encounter - Miriam Pepe RN - 04/21/2025 10:04 AM EDT Patient calls and states that [facility] did not transfer medication to [facility]. [facility] told patient to have PCP resend medication [...] Pepe RN April 21, 2025 10:05 AM [facility]06-17[facility] Miscellaneous Notes* Telephone Encounter - Miriam Pepe RN - 04/21/2025 10:04 AM EDT Patient calls and states that [facility] did not transfer medication to [facility]. [facility] told patient to have PCP resend medication [...] 21, 2025 10:05 AM documented in this encounterChillicothe Va [facility] Center06-17-2025 Telephone encounter Note * Telephone Encounter - [...] she has refills available. Esthela Linder RN [facility]06-17-2025 Miscellaneous Notes* Telephone Encounter - Esthela Linder [...] available. Esthela Linder RN documented in this encounterChillicothe Va Medical Center05-28-2025 Telephone encounter Note * Telephone Encounter - Kami Mccain RN - 04/01/2025 9:42 AM EDT Patient has contacted [facility] to transfer 2 of her [...] by mouth once daily. Kami Mccain RN [facility]05-28-2025 Miscellaneous Notes* Telephone Encounter - Kami Mccain RN - 04/01/2025 9:42 AM EDT Patient has contacted [facility] to transfer 2 of her [...] daily. Kami Mccain RN documented in this encounterChillicothe Va [facility] Center05-14-2025 Telephone encounter Note * Telephone Encounter - [...] Please advise. Thank you. Charlotte Nava LPN. [facility]05-14-2025 Miscellaneous Notes* Telephone Encounter - Charlotte Nava [...] 18, 2025 10:24 AM documented in this encounterChillicothe Va [facility] Center05-14-2025 Telephone encounter Note * Telephone Encounter - [...] Melodie Lam March 18, 2025 10:24 AM [facility]04-28-2025 Progress note* Result Encounter Note - Ishmael Davis APRN.BARBED WIRE MACHINE OPERATOR - 03/02/2025 1:26 PM EDT BNP is trending upward. BUN is high, has previously declined nephrology OV. Creatinine Date Value Ref Range Status 09/12/2024 2.20 (H) 0.58 - 0.96 mg* Final 05/09/2024 2.13 (H) 0.58 - 0.96 mg* Final 01/10/2024 2.10 (H) 0.58 - 0.96 mg* Final 12/24/2023 2.09 (H) 0.58 - 0.96 mg* Final [facility]04-28-2025 Miscellaneous Notes* Result Encounter Note - Ishmael [...] - 0.96 mg* Final documented in this encounterChillicothe Va Medical Center04-25-2025 Progress note* Result Encounter Note - Ishmael Davis APRN.CNS - 02/27/2025 11:21 AM EDT Resolution of interstitial edema and small left pleural effusion [facility]04-25-2025 Miscellaneous Notes* Result Encounter Note - Ishmael Davis APRN.CNS - 02/27/2025 11:21 AM EDT Resolution of interstitial edema and small left pleural effusion documented in this [facility]04-25-2025 NoteHNO ID: [id number] Author: PAIGE BOSTON RT(R) Service: ? Author [...] PATIENT PRESENTS WITH AN IMPLANTABLE OR ATTACHED DIRECT SUPPORT WORKER: No RADIOLOGY DEPARTMENT: General X-ray: Exam(s) Completed: Chest X-Ray PERIPHERAL IV DATA: Not applicable SIGNED BY: RT Clif(R) February 27, 2025 10:13 [facility]04-18-2025 Telephone encounter Note* Telephone Encounter - Piedad Henderson MA - 02/20/2025 8:12 AM EDT Patient notified of results, verbalized understanding of instructions given and has f/u XR ordered to complete in a week which she plans to do as well as her blood work. Piedad Henderson MA [facility]04-18-2025 Miscellaneous Notes* Telephone Encounter - Piedad Henderson [...] improving. Reese Ga APRN.DAYANA documented in this encounterChillicothe Va Medical Center04-18-2025 Telephone encounter Note * Telephone Encounter - Reese Ga APRN.CNP - 02/20/2025 7:08 AM EDT COVID-19, influenza A, and influenza B PCR test are negative. Continue supportive therapies as discussed during visit. Follow-up with PCP if symptoms are not improving. Reese Ga APRN.CNP [facility] Work Phone: 1(494) 492-325104-17-2025 Instructions* Patient Instructions* Ishmael Davis APRN.CNS - [...] the lab (for example, the one on [place]) in the morning; you will need to fast (only water, tea, or coffee without sugar/cream is allowed) until your blood is drawn. If your symptoms worsen or persist, or if new concerns arise, please contact our office. documented in this encounterChillicothe Va Medical Center04-17-2025 NoteHNO ID: [id number] Author: ISHMAEL DAVIS APRN.CNS Service: ? Author [...] History of CAD s/p CAB, followed by [facility]. Currently without symptomatic complaints. Recent cardiology visit 01/2025. Stopped Plavix. 6 month follow up. Labs [facility] 01/2025, BUN 42 Cr. 1.95 e [...] 1 tablet by mouth once daily. Insulin [place], Disposable, (BD ULTRA-FINE JOHN PEN NEEDLE) 32 gauge x 5/32 Use one needle for each dose. 1x/ (more content not included)...[facility]04-17-2025 History of Present illness Narrative* Ishmael Davis, ALCIRA.BARBED WIRE MACHINE OPERATOR - 02/19/2025 11:51 AM EDT SUBJECTIVE: LDL [...] History of CAD s/p CAB, followed by [facility]. Currently without symptomatic complaints. Recent cardiology visit 01/2025. Stopped Plavix. 6 month follow up. Labs [facility] 01/2025, BUN 42 Cr. 1.95 e [...] 122/72 01/01/2023 148/71 06/25/2022 142/78 Hyperlipidemia. Ms. Wodoward reports doing well on current therapy Review [...] 1 tablet by mouth once daily. 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 Rivera Stroke (cerebrum) ([facility]) 2013 Type II or unspecified type diabetes [...] Chronic heart failure with preserved ejection fraction ([facility]) (I50.32) - Recent cardiology evaluation with no changes to current management other than Plavix was discontinued. - [facility] Echocardiogram showed near normal systolic function with stage 2 diastolic dysfunction, no significant valvular problems. - No current edema or dyspnea on examination. - Scheduled follow-up labs in May to include BNP levels. - To continue current management and follow-up with cardiology in six months. 3. Type 2 diabetes mellitus with stage 3b chronic kidney disease, with long-term current use of insulin ([facility]) (E11.22) - Recent labs show slight improvement [...] Level: 4 - Moderate documented in this encounterChillicothe Va Medical Center04-17-2025 QevbOYRH-WZA-6 (AGENT OF COVID-19) RNA: Not detected INFLUENZA A RNA: Not detected INFLUENZA B RNA: Not detected RESPIRATORY SYNCYTIAL VIRUS (RSV) RNA: Not detectedKindred HealthcareComment on above:Performed By: #### [id number] #### [facility] CLIA [id number] [address] [place], [place] [address]04-17-2025 History of Present illness Narrative* Gregorio Caldwell [...] PATIENT PRESENTS WITH AN IMPLANTABLE OR ATTACHED DIRECT SUPPORT WORKER: No RADIOLOGY DEPARTMENT: General X-ray: Exam(s) Completed: Chest X-Ray PERIPHERAL IV DATA: Not applicable SIGNED BY: RT Dennis(R) February 19, 2025 9:21 AM documented in this encounterChillicothe Va Medical Center04-17-2025 NoteHNO ID: [id number] Author: GREGORIO CALDWELL RT(Ever) Service: Radiology Author [...] PATIENT PRESENTS WITH AN IMPLANTABLE OR ATTACHED DIRECT SUPPORT WORKER: No RADIOLOGY DEPARTMENT: General X-ray: Exam(s) Completed: Chest X-Ray PERIPHERAL IV DATA: Not applicable SIGNED BY: RT Dennis(Ever) February 19, 2025 9:21 [facility]04-17-2025 NoteHNO ID: [id number] Author: CARIDAD ANGLIN APRN.MACHINE BOSS Service: ? Author Type: Nurse Practitioner Type: [...] history is provided by the patient. No speech/language therapist was used. Wheezing This is a new [...] hypercholesterolemia S/P CABG x 3 01/09/2020 @ [facility] by Dr. Rivera Stroke (cerebrum) ([facility]) 2013 Type II or unspecified type diabetes mellitus without mention of complication, uncontrolled Unspecified cardiovascular disease Unspecified essential hypertension Urgency of urination 2008 PAST SURGICAL HISTORY Procedure Laterality Date ANGIOPLASTY 1988 CABG (3) VEIN GRAFTS AND ARTERIAL GRAFT(S) 01/09/2020 @ [facility] by Dr. Rivera COLONOSCOPY FLX DX W/COLLJ SPEC WHEN PFRMD 08/29/07 LAPAROSCOPY SURG CHOLECYSTECTOMY Cholecystectomy, lap LEFT HEART CATH,CUTDOWN 1991 PAST SURGICAL HISTORY OF Tubal ALLERGIES Bactrim [Sulfamethoxazole-Trimethoprim], Codeine, Farxiga [Dapagliflozin], Prednisone, Statins [Dklunzv-Mzt-Uwy Reductase Inhibitors], and Ultram [Tramadol Hcl] MEDICATIONS [...] 1 tablet by mouth once daily. Insulin [place], Disposable, (BD ULTRA-FINE JOHN PEN NEEDLE) 32 [...] Never Vaping Use V (more content not included)...[facility]04-17-2025 History of Present illness Narrative* Caridad Anglin, ALCIRA.MACHINE BOSS - 02/19/2025 9:10 AM EDT [facility] [...] history is provided by the patient. No speech/language therapist was used. Wheezing This is a new [...] hypercholesterolemia S/P CABG x 3 01/09/2020 @ [facility] by Dr. Rivera Stroke (cerebrum) ([facility]) 2013 Type II or unspecified type diabetes mellitus without mention of complication, uncontrolled Unspecified cardiovascular disease Unspecified essential hypertension Urgency of urination 2008 PAST SURGICAL HISTORY Procedure Laterality Date ANGIOPLASTY 1988 CABG (3) VEIN GRAFTS & ARTERIAL GRAFT(S) 01/09/2020 @ [facility] by Dr. Rivera COLONOSCOPY FLX DX W/COLLJ SPEC WHEN PFRMD 08/29/07 LAPAROSCOPY SURG CHOLECYSTECTOMY Cholecystectomy, lap LEFT HEART CATH,CUTDOWN 1991 PAST SURGICAL HISTORY OF Tubal ALLERGIES Bactrim [Sulfamethoxazole-Trimethoprim], Codeine, Farxiga [Dapagliflozin], Prednisone, Statins [Zpaxatr-Dxg-Ymy Reductase Inhibitors], and Ultram [Tramadol Hcl] MEDICATIONS [...] 1 tablet by mouth once daily. Insulin [place], Disposable, (BD ULTRA-FINE JOHN PEN NEEDLE) 32 [...] scheduling and close follow up Caridad Anglin APRN.MACHINE BOSS History and Record Review Clinical information obtained [...] patient was discharged. Procedures documented in this encounterChillicothe Va Medical Center03-17-2025 NoteHNO ID: [id number] Author: HAL HOLLIDAY MA Service: ? Author Type: Air Route Traffic Controller Type: Progress Notes Filed: 01/19/2025 15:47 Note [...] Hal Holliday MA January 19, 2025 8:10 [facility]03-17-2025 History of Present illness Narrative* Hal Holliday [...] 19, 2025 8:10 AM documented in this encounterChillicothe Va Medical Center03-17-2025 NotePatient Outreach (NETNAV) TRACECICI I ([id number]) 1935 F Date Time Provider Department 01/19/25 [...] Upset PREDNISONE 09/05/2012 11 - Vomiting STATINS (PYBTIOT-EAS-JXW REDUCTAS*05/25/2009 5 - Intolerance ULTRAM (TRAMADOL HCL) [...] tablet by mouth once daily. - Insulin [place], Disposable, (BD ULTRA-FINE JOHN PEN NEEDLE) 32 [...] (HCC) [N18.32] 01/20/2022 Hyperte (more content not included)...[facility]03-14-2025 Instructions* Patient Instructions* Anju Pearce MD - [...] test. - Update your healthcare power of ip technology transactions attorney to include your daughter, Araceli Carlos, [...] depending on updated guidelines. documented in this encounterChillicothe Va [facility] Center03-14-2025 NoteHNO ID: [id number] Author: ANJU PEARCE MD Service: ? Author Type: Physician Type: Progress Notes Filed: 01/16/2025 14:02 Note Text: This note was created using 30 Second [employer]. 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 Rivera Stroke (cerebrum) ([facility]) 2013 Type II or unspecified type diabetes [...] by mouth once daily as directed Insulin [place], Disposable, (BD ULTRA-FINE JOHN PEN NEEDLE) 32 [...] [Sulfametho* Vomiting Codeine Vomiti (more content not included)...[facility] 01-16-2025 History of Present illness Narrative* Anju Pearce MD - 01/16/2025 1:24 PM EDT This note was created using 30 Second Showcaseriter. 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 Rivera Stroke (cerebrum) ([facility]) 2013 Type II or unspecified type diabetes [...] by mouth once daily as directed Insulin [place], Disposable, (BD ULTRA-FINE JOHN PEN NEEDLE) 32 [...] May. Anju Pearce MD documented in this encounterChillicothe [facility] Center03-05-2025 Telephone encounter Note * Telephone Encounter - Charlotte Nava LPN - 01/07/2025 1:13 PM EST Per pharmacy, Patient is asking for a pen. Charlotte Nava LPN [facility]03-05-2025 Miscellaneous Notes* Telephone Encounter - Charlotte Nava LPN - 01/07/2025 1:13 PM EST Per pharmacy, Patient is asking for a pen. Charlotte Nava LPN documented in this encounterChillicothe Va [facility] Center03-04-2025 Note* Addendum Note - Graciela Bernardo MA - 01/06/2025 1:51 PM ESTAddended by: GRACIELA BERNARDO on: 01/06/2025 01:51 PM Modules accepted: Orders [facility]03-04-2025 Telephone encounter Note* Telephone Encounter - Graciela Bernardo MA - 01/06/2025 1:51 PM EST Please re-send Graciela Bernardo MA [facility]03-04-2025 Miscellaneous Notes* Addendum Note - Graciela Bernardo [...] MD See MyChart reply documented in this encounterChillicothe [facility] Center2025 Telephone encounter Note * Telephone Encounter - [...] bedtime. Anju Pearce MD See MyChart reply [facility]01-15-2025 Telephone encounter Note* Telephone Encounter - Graciela Bernardo MA - 11/19/2024 2:53 PM EST Letter mailed Graciela Bernardo MA [facility]01-15-2025 Miscellaneous Notes* Telephone Encounter - Graciela Bernardo MA - 11/19/2024 2:53 PM EST Letter mailed Graciela Bernardo MA documented in this encounterChillicothe Va [facility] Center11-14-2024 Telephone encounter Note * Telephone Encounter - Kami Guevara - 09/18/2024 10:59 AM EST Spoke with patient and she stated her daughter scheduled her for [facility] Sunday09/22/24 [facility]11-14-2024 Miscellaneous Notes* Telephone Encounter - Kami Guevara - 09/18/2024 10:59 AM EST Spoke with patient and she stated her daughter scheduled her for [facility] Sunday09/22/24 * Telephone Encounter - [...] Consider hydralazine plus nitrate. documented in this encounterChillicothe Va [facility] Center11-14-2024 Telephone encounter Note * Telephone Encounter - [...] sacubitril-valsartan 24/26 BID. Consider hydralazine plus nitrate. [facility]11-08-2024 History of Present illness Narrative* Ishmael Davis [...] CAD s/p CAB years ago, followed by [facility]. Currently without symptomatic complaints.. DIABETES [...] 1 tablet by mouth once daily Insulin [place], Disposable, (BD ULTRA-FINE JOHN PEN NEEDLE) 32 [...] hypercholesterolemia S/P CABG x 3 01/09/2020 @ [facility] by Dr. Rivera Stroke (cerebrum) ([facility]) 2014 Type II or unspecified type diabetes [...] - ICD9: 428.0, ICD10: I50.9 Followed by [facility] - Continue current medications - Encouraged sodium restriction - Recommend regular aerobic exercise/ walking - NT PRO BNP 6. Encounter for immunization - ICD9: V03.89, ICD10: Z23 - PFIZER-BIONTECH COVID-19 VACCINE AGE 12+ YR (COMIRNATY) - declined at this time Not needing insulin refill yet, will let us know when needed. Her formulary is changing, covered insulins are listed in [employer] message today from her daughter.GVOKE HYPOPEN, HUMULIN R U-500 KWIKPEN, INSULIN ASP PRT INSULIN PEN, INSULIN ASPART U-100 INSULIN PEN, INSULIN DEGLUDEC INSULIN PEN, INSULIN GLARGINE U-300 INSULIN PEN, INSULIN GLARGINE-YFGN INSULIN PEN. labs today 4 mo follow up Anju Pearce MD- with labs 8 mo follow up Ishmael Davis APRN.BARBED WIRE MACHINE OPERATOR Ishmael Davis APRN.CNS Medical Decision Making: Problems: Moderate: 2+ stable chronic illnesses Data: Unique test result(s) reviewed: 3+ Risk: Moderate: Drug management Medical Decision Making Level: 4 - Moderate documented in this encounterChillicothe Va [facility] Center11-08-2024 NoteHNO ID: [id number] Author: ISHMAEL DAVIS APRN.CNS Service: ? Author [...] History of CAD s/p CAB, followed by [facility]. Currently without symptomatic complaints. Reports [...] otic solution U (more content not included)... [facility]10-03-2024 Telephone encounter Note* Telephone Encounter - Dirk [...] Simms RN August 07, 2024 8:37 AM [facility]10-03-2024 Miscellaneous Notes* Telephone Encounter - Dirk Simms [...] 07, 2024 8:37 AM documented in this encounterChillicothe [facility]08-17-2024 Telephone encounter Note * Telephone Encounter - Anju Pearce MD - 06/21/2024 1:36 PM EDT Noted back on FIASP. Okay to continue lunch time insulin. Adjust dose of insulin with meals as needed Updated med list [facility]08-17-2024 Miscellaneous Notes* Telephone Encounter - Anju Pearce MD - 06/21/2024 1:36 PM EDT Noted back on FIASP. Okay to continue lunch time insulin. Adjust dose of insulin with meals as needed Updated med list * Telephone Encounter - Dirk Simms RN - 06/21/2024 8:11 AM EDT Phoned patient and given provider's message below with verbalized understanding. Patient reports she picked Fiasp at [facility] pharmacy yesterday. Reports her insurance would [...] not clear. Please advise. documented in this encounterChillicothe Va [facility] Center08-17-2024 Telephone encounter Note * Telephone Encounter - Dirk Simms RN - 06/21/2024 8:11 AM EDT Phoned patient and given provider's message below with verbalized understanding. Patient reports she picked Fiasp at [facility] pharmacy yesterday. Reports her insurance would not cover novolog. Reports she has been taking 3 units at lunch and will continue to do so. [facility]08-16-2024 Telephone encounter Note* Telephone Encounter - Anju [...] and sugars fine, may keep taking it. [facility]08-16-2024 Telephone encounter Note* Telephone Encounter - Lora Mitchell LPN - 06/20/2024 3:48 PM EDT Please clarify directions on patients Insulin. States that she is confused if she should take lunchtime insulin or hold lunchtime insulin. Directions on prescriptions are not clear. Please advise. [facility]08-15-2024 Telephone encounter Note* Telephone Encounter - Susana Harry LPN - 06/19/2024 4:59 PM EDT Patient notified of providers message and verbalized understanding. [facility]08-15-2024 Miscellaneous Notes* Telephone Encounter - Susana Harry [...] whichever one she can get. If the [facility] pharmacy is closed and she prefers the Fiasp insulin and wants to wait until tomorrow I think that is okay * Telephone Encounter - Tram Jimenez LPN - 06/19/2024 4:19 PM EDT Patient calling back [facility] pharmacy only one that has Fiasp insulin in stock. Not sure which to pend. Patient was wanting to get picked up today, told her pharmacy closes early. Please advise * Telephone Encounter - Esthela Linder, RITA - 06/19/2024 4:03 PM EDT Pt called and is notified of providers message and instructions. Pt voices understanding. She is going to call [facility] pharmacy and if they have the [...] check to see if fiasp available at [facility] pharmacy. * Telephone Encounter - Aidee Morrison LPN - 06/19/2024 2:32 PM EDT Pt calls states will be out of insulin tomorrow. Just got off phone with [facility] they will not gether fiasp- flex touch insulin in until end of month or later called a few other stores [facility]. Asking if something else could be called in in its place for her? documented in this encounterChillicothe Va Medical Center08-15-2024 Note* Addendum Note - Ishmael Davis APRN.CNS - 06/19/2024 4:47 PM EDTAddended by: ISHMAEL DAVIS on: 06/19/2024 04:47 PM Modules accepted: Orders [place] [address]-15-2024 Telephone encounter Note* Telephone Encounter - Ishmael Davis APRN.BARBED WIRE MACHINE OPERATOR - 06/19/2024 4:46 PM EDT I sent in both prescriptions. She can pick whichever one she can get. If the [facility] pharmacy is closed and she prefers the Fiasp insulin and wants to wait until tomorrow I think that is okay [facility]08-15-2024 Telephone encounter Note* Telephone Encounter - Tram Jimenez LPN - 06/19/2024 4:19 PM EDT Patient calling back [facility] pharmacy only one that has Fiasp insulin in stock. Not sure which to pend. Patient was wanting to get picked up today, told her pharmacy closes early. Please advise [facility]08-15-2024 Telephone encounter Note* Telephone Encounter - Esthela Linder, RITA - 06/19/2024 4:03 PM EDT Pt called and is notified of providers message and instructions. Pt voices understanding. She is going to call [facility] pharmacy and if they have the fiasp in stock she will call us back to send it over there. She said her insurance doesn't cover the Novolog anymore that's why she went to the [facility]. I also told her she could call her insurance and see if there is anything else they cover aside from the fiasp as it is out of stick. Esthela Linder, RITA [facility]08-15-2024 Telephone encounter Note* Telephone Encounter - Ishmael Davis APRN.ELIZA - 06/19/2024 3:11 PM EDT Rx sent for Novolog which she was taking before. Can check to see if fiasp available at [facility] pharmacy. [facility]08-15-2024 Telephone encounter Note* Telephone Encounter - Aidee Morrison LPN - 06/19/2024 2:32 PM EDT Pt calls states will be out of insulin tomorrow. Just got off phone with [facility] they will not gether fiasp- flex touch insulin in until end of month or later called a few other stores [facility]. Asking if something else could be called in in its place for her? [facility]07-08-2024 Instructions* Patient Instructions* Ishmael Davis APRN.CNS - [...] ear wax. Please schedule an appointment with [facility] for follow-up documented in this encounterChillicothe Va Medical Center07-08-2024 History of Present illness Narrative* Ishmael Davis [...] History of CAD s/p CAB years ago, [facility] visits, overdue for follow-up. Currently [...] Inject 14 Units subcutaneouslydaily at bedtime. 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 Rivera Stroke (cerebrum) ([facility]) 2013 Type II or unspecified type diabetes [...] Negative Negative Ketones, Urine Negative Negative Specific [place], Ur 1.005 - 1.030 1.020 Hemoglobin/Blood,Ur Negative [...] V45.81, ICD10: Z95.1 Has been followed by [facility], overdue for follow-up visit. Endorse scheduling an [...] ears. - CONSULT TO ENT Ishmael Davis APRN.BARBED WIRE MACHINE OPERATOR ASSESSMENT/PLAN: 1. . Hypertension goal BP (blood pressure) < 150/90 - ICD9: 401.9, ICD10: I10 Blood pressure is controlled. Endorse continue on with current medications unchanged. Has not recently seen [facility] cardiology. Endorse scheduling an appointment to reestablish care. Echocardiogram completed 2019 at [facility] showed LVEF 30%. [facility] 2019. S/P CABG GHOSH-Dx, LAD; SVG-OM [...] unchanged for now. Schedule follow-up with cardiology, [facility]. Advised: Increase your fluid intake, [...] ear wax. Please schedule an appointment with [facility] for follow-up 4 mo follow up MD Ishmael Zafar APRN.BARBED WIRE MACHINE OPERATOR Medical Decision Making: Problems: Moderate: 1+ chronic illnesses with change Risk: Moderate: Drug management Medical Decision Making Level: 4 - Moderate documented in this encounterChillicothe [facility] Center03-14-2024 Miscellaneous Notes* Telephone Encounter - Anju Pearce [...] pharmacy. Angelica Rogel LPN documented in this encounterChillicothe Va Medical Center03-11-2024 Miscellaneous Notes* Telephone Encounter - Iesha Waddell APRN.CNP - 01/14/2024 3:24 PM EDT Rx sent * Telephone Encounter - Tram Jimenez LPN - 01/14/2024 1:26 PM EDT [facility] pharmacy calling patient Medicare B insurance only covers [employer] so needingnew rx for [employer] meter and strips and [employer]ile[employer] Lancets please. With all diagnosis codes please, times a day testing, insulin, etc. Asking for copy of last office visit face to face notes faxed to [phone]. Pending rx for items requested. Printed office notes and faxed to [phone] as requested. Please advise Patient has been [...] you. Tram Jimenez LPN. documented in this encounterChillicothe Va Medical Center03-11-2024 Miscellaneous Notes* Telephone Encounter - Maureen Shoemaker [...] care: 05/12/2024 Please Note: Per Pharmacist at [facility], they can no longer process Medicare prescriptions under Part B. Which the test strips fall under. Please send to [facility] for the patient. Patient is aware of this already. Please advise. Thank you. Charleen Diaz. documented in this encounterChillicothe Va Medical Center03-08-2024 Instructions* Patient Instructions* Anju Pearce MD - 01/11/2024 1:24 PM EST Get water in through tea and soup to get up to 8 cups of water daily. documented in this encounterChillicothe Va Medical Center03-08-2024 History of Present illness Narrative* Anju Pearce MD - 01/11/2024 1:04 PM EST This note was created using 30 Second Showcaseriter. 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 Rivera Stroke (cerebrum) ([facility]) 2013 Type II or unspecified type diabetes [...] 1 tablet by mouth once daily. Insulin [place], Disposable, (BD ULTRA-FINE JOHN PEN NEEDLE) 32 [...] Abs Lymph 1.00 - 4.00 k/uL 2.97 [place]% % 6.8 Abs [place] <0.87 k/uL 0.58 Eosin% % 0.8 Abs Eosin <0.46 k/uL 0.07 Baso% % 0.8 Abs Baso <0.11 k/uL 0.07 Immature Gran % % 0.4 IMMATURE GRANS (ABS) <0.10 k/uL 0.03 NRBC /100 WBC 0.0 Absolute nRBC <0.01 k/uL <0.01 <0.01 <0.01 DTYPE Auto Color Yellow Yellow Clarity Clear Clear Glucose, Urine Negative Negative Bilirubin, Urine Negative Negative Ketones, Urine Negative Negative Specific [place], Ur 1.005 - 1.030 1.020 Hemoglobin/Blood,Ur Negative [...] disease, with long-term current use of insulin ([facility]) E11.22 HGB A1C N18.32 COMP METABOLIC PANEL Z79.4 Fair control. Continue present management 2. 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 Stay hydrated 3. Vitamin D deficiency E55.9 VITAMIN D 25 HYDROXY Continue to adjust vitamin D intake as needed 4. Congestive heart failure, unspecified HF chronicity, unspecified heart failure type ([facility]) I50.9 Stable; able to do normal daily [...] Continue present management 11. Paroxysmal atrial fibrillation ([facility]) I48.0 Rate controlled. Continue present management 12. [...] sleep. Anju Pearce MD documented in this encounterChillicothe Va Medical Center02-21-2024 History of Present illness Narrative* Galilea Hardy, [facility] - 12/26/2023 3:30 PM EST Images from [...] going to [facility] and exercising more. Community Health Agent is through the [facility]. Past [...] 1 tablet by mouth once daily. Insulin [place], Disposable, (BD ULTRA-FINE JOHN PEN NEEDLE) 32 [...] continue HF management with PCP team and clinical auditor - Continue current medications - Encouraged drinking sufficient water - Advised to call office if cost issues with Jardiance or ADEs - Hasn't had clinical auditor visit in very long time --> advised to make a priority and get appt scheduled The patient verbalized understanding of the instructions. Patient taking SGLT2-I at conclusion of visit: Yes Follow up: See patient instructions The majority of the pharmacy visit (> 50%) was spent counseling and/or coordinating care for thepatient. Time was 16 minutes. documented in this encounterChillicothe Va Medical Center02-07-2024 Miscellaneous Notes* Telephone Encounter - Galilea Hardy [...] to switch to Farxiga. Galilea Hardy PharmD, [facility] Primary Care Clinical Pharmacist * Telephone Encounter - Radha Sharma LPN - 12/12/2023 9:46 AM EST Pt is calling regarding the cost of Jardiance going up. Pt asking about a different tier of medication. Pt asking if she can speak directly to emy Ricci. Radha Sharma LPN documented in this encounterChillicothe Va Medical Center02-01-2024 Miscellaneous Notes* Telephone Encounter - Anju Pearce [...] you. Charlotte Nava LPN. documented in this encounterChillicothe Va Medical Center11-30-2023 Miscellaneous Notes* Telephone Encounter - Julieta Guerrero [...] this? Julieta Guerrero RN documented in this encounterChillicothe Va Medical Center11-27-2023 Miscellaneous Notes* Telephone Encounter - Eduin Alva [...] request. Eduin Alva LPN documented in this encounterChillicothe Va Medical Center11-16-2023 Instructions* Patient Instructions* Ishmael Davis APRN.ELIZA - 09/20/2023 1:39 PM EST Increase fluid intake, aim for 64 ounces of fluid daily. Make an appointment with Ben Garcia documented in this encounterChillicothe Va Medical Center11-16-2023 History of Present illness Narrative* Ishmael Davis APRN.BARBED WIRE MACHINE OPERATOR - 09/20/2023 1:07 PM EST SUBJECTIVE: Hepatitis [...] She has CAD s/p CAB years ago, [facility] following. No recent visit. CP/SOB: [...] by mouth once daily. As directed Insulin [place], Disposable, (BD ULTRA-FINE JOHN PEN NEEDLE) 32 [...] hypercholesterolemia S/P CABG x 3 01/09/2020 @ [facility] by Dr. Rivera Stroke (cerebrum) ([facility]) 2013 Type II or unspecified type diabetes [...] Abs Lymph 1.00 - 4.00 k/uL 2.97 [place]% % 6.8 Abs [place] <0.87 k/uL 0.58 Eosin% % 0.8 Abs [...] current medications unchanged. Has not recently seen [facility] cardiology. Endorse scheduling an appointment to reestablish care. Echocardiogram completed 2019 at [facility] showed LVEF 30%. [facility] 2019. S/P CABG GHOSH-Dx, LAD; SVG-OM [...] Level: 4 - Moderate documented in this encounterChillicothe Va Medical Center11-09-2023 Miscellaneous Notes* Telephone Encounter - Angelica Rogel [...] 11:39 AM EST Per Aruna/Ben, Pharmacy checked [facility] website, Novolog is on backorder. Requesting analternative be sent. Charlotte Nava LPN documented in this encounterChillicothe Va Medical Center11-06-2023 Miscellaneous Notes* Telephone Encounter - Charlotte Nava LPN - 09/10/2023 3:39 PM EST Pharmacy is requesting 90 day supply. 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 Iesha Waddell APRN-DAYANA documented in this encounterChillicothe Va Medical Center10-30-2023 Miscellaneous Notes* Telephone Encounter - Daksha Rivera [...] RN * Telephone Encounter - Ishmael Davis, GLOBAL CTO.BARBED WIRE MACHINE OPERATOR - 08/31/2023 4:34 PM EDT CBC, vitamin [...] Abs Lymph 1.00 - 4.00 k/uL 2.97 [place]% % 6.8 Abs [place] <0.87 k/uL 0.58 Eosin% % 0.8 Abs [...] advise, Miriam Pepe RN documented in this encounterChillicothe Va Medical Center10-19-2023 Instructions* Patient Instructions* Ishmael Davis APRN.CNS - [...] Schedule appointment with cardiology documented in this encounterChillicothe Va Medical Center10-19-2023 History of Present illness Narrative* Ishmael Davis [...] She has CAD s/p CAB years ago, [facility] following. No recent visit. CP/SOB: [...] 1 tablet by mouth once daily. 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 Rivera Stroke (cerebrum) ([facility]) 2013 Type II or unspecified type diabetes [...] Abs Lymph 1.00 - 4.00 k/uL 2.97 [place]% % 6.8 Abs [place] <0.87 k/uL 0.58 Eosin% % 0.8 Abs [...] check this week Has not recently seen [facility] cardiology. Endorse scheduling an appointment to reestablish care. Echocardiogram completed 2019 at [facility] showed LVEF 30%. [facility] 2019. S/P CABG GHOSH-Dx, LAD; SVG-OM Cx, SVG-RCA Return to clinic 1 month for recheck of blood pressure. 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 documented in this encounterChillicothe Va Medical Center10-10-2023 History of Present illness Narrative* Anju Pearce MD - 08/14/2023 5:08 PM EDT This note was created using 30 Second Showcaseriter. Subjective Cici Woodward is a 88 year [...] for which was seen in [facility]. Was seeing [facility]. Noted kidney issues--have not tried jardiance or farxiga. 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 Rivera Stroke (cerebrum) ([facility]) 2013 Type II or unspecified type diabetes [...] Inject 14 Units subcutaneouslydaily at bedtime. Insulin [place], Disposable, (BD ULTRA-FINE JOHN PEN NEEDLE) 32 [...] sleep. Anju Pearce MD documented in this encounterChillicothe Va Medical Center09-19-2023 Miscellaneous Notes* Telephone Encounter - Myriam Whitehead [...] patient know either way. documented in this encounterChillicothe Va Medical Center09-16-2023 History of Present illness Narrative* Clement Cortes APRN.MACHINE BOSS - 07/21/2023 10:45 AM EDT CC: Patient [...] hypercholesterolemia S/P CABG x 3 01/09/2020 @ [facility] by Dr. Rivera Stroke (cerebrum) ([facility]) 2013 Type II or unspecified type diabetes mellitus without mention of complication, uncontrolled Unspecified cardiovascular disease Unspecified essential hypertension Urgency of urination 2008 PAST SURGICAL HISTORY Procedure Laterality Date ANGIOPLASTY 1988 CABG (3) VEIN GRAFTS & ARTERIAL GRAFT(S) 01/09/2020 @ [facility] by Dr. Rivera COLONOSCOPY FLX DX W/COLLJ SPEC WHEN PFRMD 08/29/07 LAPAROSCOPY SURG CHOLECYSTECTOMY Cholecystectomy, lap LEFT HEART CATH,CUTDOWN 1991 PAST SURGICAL HISTORY OF Tubal ALLERGIES Bactrim [Sulfamethoxazole-Trimethoprim], Codeine, Prednisone, Statins [Yodymtz-Vhh-Wda Reductase Inhibitors], and Ultram [Tramadol Hcl] MEDICATIONS [...] 1 tablet by mouth once daily. Insulin [place], Disposable, (BD ULTRA-FINE JOHN PEN NEEDLE) 32 [...] NAAT, ROUTINE Patient was instructed to take bpsf-tob-xfhxegb medication at this time for supportive therapy [...] plan. Clement Cortes APRN.DAYANA documented in this encounterChillicothe Va Medical Center08-28-2023 Miscellaneous Notes* Telephone Encounter - Eula Smith [...] and advise. Ofelia Carroll documented in this encounterChillicothe Va Medical Center07-28-2023 Miscellaneous Notes* Telephone Encounter - Miriam Pepe RN - 06/01/2023 9:35 AM EDT Last Office Visit: 01/09/2023 Future Office Visit: 08/14/2023 Requested Prescriptions Pending Prescriptions Disp Refills allopurinol (ZYLOPRIM) 100 mg tablet 90 tablet 3 Sig: Take 1 tablet by mouth once daily. Date of Last Labs: 01/06/2023 documented in this encounterChillicothe Va Medical Center06-21-2023 Miscellaneous Notes* Telephone Encounter - Gregorio Garcia [...] and advise. Gregorio Garcia documented in this encounterChillicothe Va Medical Center05-10-2023 Miscellaneous Notes* Telephone Encounter - Charlotte Nava [...] Nava LPN * Telephone Encounter - Leona iDaz - 03/14/2023 8:52 AM EDT Pharmacy verified in [facility] Patient has been identified by name [...] advise. Leona Vázquez Pss documented in this encounterChillicothe Va Medical Center04-24-2023 Miscellaneous Notes* Telephone Encounter - Iesha Waddell [...] notify patient. Melva Noble documented in this encounterChillicothe Va Medical Center03-08-2023 Miscellaneous Notes* Telephone Encounter - Anju Pearce [...] review units per day. documented in this encounterChillicothe Va Medical Center03-07-2023 History of Present illness Narrative* Anju Pearce [...] hypercholesterolemia S/P CABG x 3 01/09/2020 @ [facility] by Dr. Rivera Stroke (cerebrum) ([facility]) 2014 Type II or unspecified type diabetes mellitus without mention of complication, uncontrolled Unspecified cardiovascular disease Unspecified essential hypertension Urgency of urination 2008 Current Outpatient Medications Medication Sig rosuvastatin (CRESTOR) 5 mg tablet Take 1 tablet by mouth once daily. As directed amLODIPine (NORVASC) 5 mg tablet Take 1 tablet by mouth once daily. Insulin [place], Disposable, (BD ULTRA-FINE JOHN PEN NEEDLE) 32 [...] Lymph 1.00 - 4.00 k/uL 3.45 2.97 [place]% % 7.2 6.8 Abs [place] <0.87 k/uL 0.60 0.58 Eosin% % 1.0 [...] indicated. Anju Pearce MD documented in this encounterChillicothe Va Medical Center02-28-2023 Miscellaneous Notes* Telephone Encounter - Ofelia Franklin CARPENTER - 01/02/2023 9:59 AM EST PATIENT NOTIFIED OF SAME. Order faxed to [facility] as requested. * Telephone Encounter - Iesha Waddell APRN.CNP - 01/02/2023 9:19 AM EST Please let patient know that [facility] is not willing to follow since she is doing PT at [facility], we can do a referral to the [facility] to see if we can get some assistance resources for her that way. Please send referral, thanks! * Telephone Encounter - Miriam Pepe RN - 01/02/2023 8:52 AM EST Delores from [facility] calls and state that patient was not discharged from [facility]. [facility] is planning on seeing patient for the next 2 months. Patient had just finished phase one of PT therapy. Patient was seen yesterday at [facility]. In those notes, it was noted that patient has been living at home by self. Delores states that transportation issues is not a reason for homebound therapy. Insurance will not cover homebound therapy [facility] Delores states that she would like to help patient but unable to help due to insurance not covering home health therapy. Please review and advise, Miriam Pepe RN documented in this encounterChillicothe Va Medical Center02-27-2023 Miscellaneous Notes* Telephone Encounter - Ofelia Ried LPN - 01/01/2023 4:42 PM EST Detailed message left for Delores as to below information. * Telephone Encounter - Iesha Waddell APRN.CNP - 01/01/2023 4:29 PM EST She was going to [facility] while living with family because she had access to them for transportation. She is now going back to her own home to try and regain independence and that is why she is interested in [facility] services. Please let [facility] know that. * Telephone Encounter - Esthela Linder RN - 01/01/2023 4:24 PM EST Delores with [facility] called in and reports she was going over last OV notes and it said that Pt was going to [facility] for PT. She was asking if the Pt is currently going there. She states if the Pt is going to out patient therapy her insurance wouldn't cover home health. Please call and advise. documented in this encounter[facility] History of Present illness Narrative* Iesha Waddell [...] at this point. In PT. Going to [facility]. . Pain has been controlled. Following with [facility] for ortho. Her medications were reviewed [...] by mouth once daily. As directed Insulin [place], Disposable, (BD ULTRA-FINE JOHN PEN NEEDLE) 32 [...] Disease, With Long-Term Current Use of Insulin ([facility]) - 08/25/2014 History of Cva (Cerebrovascular Accident) [...] V54.11, ICD10: S42.92XD (primary diagnosis) Referral for [facility] with [facility]. - [facility] 2. Mixed hyperlipidemia - ICD9: 272.2, ICD10: E78.2 - ROSUVASTATIN 5 MG TABLET 3. Obesity, Class I, BMI 30-34.9 - ICD9: 278.00, ICD10: E66.9 4. Type 2 diabetes mellitus with stage 3b chronic kidney disease, with long-term current use of insulin (HCC) - ICD9: 250.40, 585.3, V58.67, ICD10: E11.22, N18.32, Z79.4 - [facility] Portions of this note have [...] appointment.. Iesha Waddell APRN-DAYANA documented in this encounterCh[facility]23 Miscellaneous Notes* Telephone Encounter - Susana Betancourt [...] notify patient. Charleen Diaz documented in this encounterChillicothe [facility] Center10-18-2022 Miscellaneous Notes* Telephone Encounter - Anju Pearce [...] Thank you. Radha Diaz documented in this encounterChillicothe [facility] Center08-24-2022 Miscellaneous Notes* Telephone Encounter - Esthela Linder RN - 06/28/2022 9:12 AM EDT Araceli with [facility] called over to have urine culture and Pts last OV notes send over. Faxed to # [phone]. documented in this encounterChillicothe [facility] Center08-22-2022 Miscellaneous Notes* Telephone Encounter - Paige Devine [...] resolved. Hal David CNP documented in this encounterChillicothe Va [facility] Center08-21-2022 History of Present illness Narrative* Patsy Guardado APRN.CNP - 06/25/2022 9:51 AM EDT Subjective The history is provided by the patient. No speech/language therapist was used. 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 Rivera Stroke (cerebrum) ([facility]) 2013 Type II or unspecified type diabetes mellitus without mention of complication, uncontrolled Unspecified cardiovascular disease Unspecified essential hypertension Urgency of urination 2008 I have confirmed and edited as necessary, the [facility] Review of Systems Constitutional: Negative for chills [...] evaluation. Patsy Guardado APRN.CNP documented in this encounterChillicothe Va [facility] Center08-21-2022 Instructions* Patient Instructions* Patsy Guardado APRN.CNP - 06/25/2022 9:27 AM EDT keflx for 7 days Tylenol as needed for discomfort AZO otc Increase hydration -Follow up with PCP or return to clinic if symptoms not improving in 3 days or if you develop any new (or worsening) symptoms such as fever, chills or back pain go to ER. documented in this encounterChillicothe [facility] Center04-04-2022 Miscellaneous Notes* Telephone Encounter - Miriam Pepe [...] you. Miriam Pepe RN documented in this encounterChillicothe [facility] Center02-29-2020 History of Past illness Narrative* Problem Noted [...] of this encounter (statuses as of 02/06/2022) [facility] of Past illness Narrative* Problem Noted [...] of this encounter (statuses as of 06/25/2022) [facility] of Past illness Narrative* Problem Noted [...] of this encounter (statuses as of 06/26/2022) [facility] of Past illness Narrative* Problem Noted [...] of this encounter (statuses as of 06/28/2022) [facility] of Past illness Narrative* Problem Noted [...] of this encounter (statuses as of 08/22/2022) [facility] of Past illness Narrative* Problem Noted [...] of this encounter (statuses as of 12/25/2022) [facility] of Past illness Narrative* Problem Noted [...] of this encounter (statuses as of 01/01/2023) [facility] of Past illness Narrative* Problem Noted [...] of this encounter (statuses as of 01/02/2023) [facility] of Past illness Narrative* Problem Noted [...] of this encounter (statuses as of 01/02/2023) [facility] of Past illness Narrative* Problem Noted [...] of this encounter (statuses as of 01/11/2023) [facility] of Past illness Narrative* Problem Noted [...] of this encounter (statuses as of 01/12/2023) [facility] of Past illness Narrative* Problem Noted [...] of this encounter (statuses as of 02/27/2023) [facility] of Past illness Narrative* Problem Noted [...] meninges 12/26/2008 02/11/2020 Overview: Neuro Referral: Daija Alfosno, 10/19/08, Dx: A incidental ventromedial foramen magnum [...] of this encounter (statuses as of 03/14/2023) [facility] of Past illness Narrative* Problem Noted [...] of this encounter (statuses as of 04/25/2023) [facility] illness Narrative* Problem Noted [...] of this encounter (statuses as of 06/01/2023) [facility] illness Narrative* Problem Noted [...] of this encounter (statuses as of 07/02/2023) [facility] illness Narrative* Problem Noted [...] of this encounter (statuses as of 07/21/2023) [facility] Narrative* Problem Noted [...] of this encounter (statuses as of 07/24/2023) [facility] of Past illness Narrative* Problem Noted [...] of this encounter (statuses as of 08/23/2023) [facility] of Past illness Narrative* Problem Noted [...] of this encounter (statuses as of 09/03/2023) [facility] of Past illness Narrative* Problem Noted [...] of this encounter (statuses as of 09/05/2023) [facility] of Past illness Narrative* Problem Noted [...] of this encounter (statuses as of 09/11/2023) [facility] Past illness Narrative* Problem Noted [...] of this encounter (statuses as of 09/14/2023) [facility] illness Narrative* Problem Noted [...] of this encounter (statuses as of 09/15/2023) [facility] illness Narrative* Problem Noted [...] of this encounter (statuses as of 09/20/2023) [facility] illness Narrative* Problem Noted [...] of this encounter (statuses as of 10/02/2023) [facility] Narrative* Problem Noted [...] of this encounter (statuses as of 10/05/2023) [facility] Narrative* Problem Noted [...] of this encounter (statuses as of 12/07/2023) [facility] Narrative* Problem Noted [...] of this encounter (statuses as of 12/12/2023) [facility] Narrative* Problem Noted [...] of this encounter (statuses as of 12/26/2023) [facility] Narrative* Problem Noted [...] of this encounter (statuses as of 01/14/2024) [facility] Narrative* Problem Noted [...] of this encounter (statuses as of 01/14/2024) [facility] Narrative* Problem Noted [...] of this encounter (statuses as of 01/18/2024) [facility] Narrative* Problem Noted [...] of this encounter (statuses as of 01/18/2024) [facility] CenterChief complaint+Reason for visit Narrative* Chief Complaint HEMATURIA, ABN URETE R BLEEDING [place] referral possible [place] PMB ABN US RENAL Reason for Visit Thickened [facility] Work Phone: Chief complaint+Reason for visit Narrative* Chief Complaint HEMATURIA, ABN URETE R BLEEDING [place] referral possible [place] PMB ABN US RENAL ARM INJURY Reason for Visit [facility] Work Phone: Discharge summary Author Homero Mendosa [facility] Note Date/Time June 14, 2025 11 :15[facility] Medical Records Department [address] [place] [address] Emergency Department Summary 06/14/25 MR#: [id number] Acct: [id number] Name: CICI WOODWARD Rep #:[id number] : 1935 89 From: Homero Mendosa MD [...] stroke, chronickidney disease, diabetes, hypertension and prior SD with CABG. States she just feels generally weak. She was seen at the [facility] urgent care. Diagnosed with a possible [...] Prior similar symptoms: Yes Recent Illness/Hospitalization: No [facility] Medical History Atherosclerosis of coronary artery of [place] heart without angina pectoris Bilateral renal cysts [...] are nontender. Moving all 4 extremities. Normal bus starter strength bilaterally. Normal dorsi plantarflexion. Calves are [...] have a primary care physician in the [facility] on page to ensure close follow-up [...] 77.1 H Lymph % (Auto) 16.9 L [place] % (Auto) 4.9 Eos % (Auto) 0.3 [...] Clarity Clear Urine pH 6.0 Ur Specific [place] 1.020 Urine Protein 500 H Urine Glucose [...] Cardiomegaly with mild vascular congestion. Reading Location: [facility] Chest x-ray, 2 views, AP and lateral, [...] rate of 72 no acute signs of SD or ischemia. Right bundle branch block. Discharge [...] MD [Primary Care Provider] - Print Language: Montenegrin Disposition Disposition: [facility] What to do if you have Problems For any increased pain, shortness of breath, bleeding, nausea or vomiting, chestpain, or any unexpected problems, contact your Primary Care Provider. Call [facility] ([phone]) or report to the closest Emergency Room. Call 911 if necessary. 06/14/25 1115 <Electronically signed by Homero Mendosa MD> Cosigner Signature (if applicable): CC: Dr. Anju Pearce MD ~ Signed [facility] Work Phone: Evaluation note* Diagnosis Urinary frequency- Primary Acute lower UTI Urinary tract infection, site not specified documented in this encounter [facility] noteNo assessment information availableWHocking Valley Community [facility] Work Phone: Evaluation note* Diagnosis Onset Date Resolution Status Thickened endometrium acute [facility] Work Phone: Evaluation note* Diagnosis Closed fracture of left shoulder with routine healing, subsequent encounter- Primary Mixed hyperlipidemia Obesity, Class I, BMI 30-34.9 Obesity, unspecified Type 2 diabetes mellitus with stage 3b chronic kidney disease, with long-term current use of insulin (HCC) documented in this encounter [facility] note* Diagnosis Type 2 diabetes mellitus with stage 3b chronic kidney disease, with long-term current use of insulin (HCC)- Primary History of CVA (cerebrovascular accident) Transient ischemic attack (TIA), and cerebral infarction without residual deficits Closed fracture of left shoulder with routine healing, subsequent encounter documented in this encounter [facility]* Diagnosis Type 2 diabetes mellitus with stage 3b chronic kidney disease, with long-term current use of insulin (HCC)- Primary Stage 3b chronic kidney disease (HCC) Vitamin D deficiency Unspecified vitamin D deficiency Mixed hyperlipidemia Hypertension goal BP (blood pressure) < 150/90 Unspecified essential hypertension Bilateral leg edema Edema Swelling of left hand Positive for macroalbuminuria Proteinuria [facility]* Diagnosis Onset Date Resolution Status Closed fracture of left proximal humerus acute [facility] Work Phone: Evaluation note* Diagnosis Idiopathic gout of multiple sites, unspecified chronicity- Primary S/P CABG x 4 Postsurgical aortocoronary bypass status documented in this encounter [facility]* Diagnosis Mixed hyperlipidemia [facility]* Diagnosis Idiopathic gout of multiple sites, unspecified chronicity Hyperuricemia Other abnormal blood chemistry [facility]* Diagnosis 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) Occlusion and stenosis of unspecified precerebral artery with cerebral infarction documented in this encounter [facility]* Diagnosis URI, acute- Primary Acute upper respiratory infections of unspecified site documented in this encounter [facility]* Diagnosis Encounter for immunization- Primary Need for other specified prophylactic vaccination against single bacterial disease documented in this encounter [facility]* Diagnosis Hypertension goal BP (blood pressure) < 150/90- Primary Unspecified essential hypertension Type 2 diabetes mellitus with stage 3b chronic kidney disease, with long-term current use of insulin (HCC) Hypertensive kidney disease with stage 3b chronic kidney disease (HCC) documented in this encounter [facility]* Diagnosis Type 2 diabetes mellitus with stage 3b chronic kidney disease, with long-term current use of insulin (HCC) Hypertensive kidney disease with stage 3b chronic kidney disease (HCC) Hypertension goal BP (blood pressure) < 150/90 Unspecified essential hypertension [facility]* Diagnosis Type 2 diabetes mellitus with [...] ventricular response (HCC) documented in this encounter [facility]* Diagnosis Type 2 diabetes mellitus with [...] failure type (HCC) documented in this encounter [facility]* Diagnosis Mixed hyperlipidemia documented in this encounter [facility]* Diagnosis Congestive heart failure, unspecified HF chronicity, unspecified heart failure type (HCC)- Primary documented in this encounter [facility]* Diagnosis Type 2 diabetes mellitus with [...] use of medication documented in this encounter [facility]* Diagnosis Type 2 diabetes mellitus with hyperglycemia, with long-term current use of insulin (HCC)- Primary [facility]* Diagnosis Screening for diabetic retinopathy- Primary [...] both ear canals documented in this encounter [facility]* Diagnosis HYPERTENSION NOS- Primary Unspecified essential [...] single bacterial disease [facility]* Diagnosis HYPERTENSION NOS- Primary Unspecified essential [...] ventricular response (HCC) documented in this encounter [facility] note* Diagnosis HYPERTENSION NOS- Primary Unspecified essential [...] anemia Anemia, unspecified documented in this encounter [facility] note* Diagnosis HYPERTENSION NOS- Primary Unspecified essential [...] Edema, unspecified type documented in this encounter [facility]* Diagnosis HYPERTENSION NOS- Primary Unspecified essential [...] unspecified hyperlipidemia type documented in this encounter [facility]* Diagnosis HYPERTENSION NOS- Primary Unspecified essential [...] Unspecified essential hypertension documented in this encounter [facility] note* Diagnosis HYPERTENSION NOS- Primary Unspecified essential [...] Unspecified essential hypertension [facility]* Diagnosis Onset Date Resolution Status Admit Date Atherosclerosis of coronary artery of [place] heart without angina pectoris chronic April 30, 2025 3:19pm Benign hypertension chronic April 30, 2025 3:19pm HLD (hyperlipidemia) chronic April 30, 2025 3:19pm Ischemic cardiomyopathy chronic J 2024 3:19pm Paroxysmal atrial fibrillati on with RVR chronic April 30, 2025 3:19pm [employer] Work Phone: Evaluation note* Diagnosis HYPERTENSION [...] of insulin (HCC) [facility]* Diagnosis HYPERTENSION NOS- Primary Unspecified essential [...] Primary Routine general medical examination at a [facility] Hypertensive kidney disease with stage 3b chronic kidney disease (HCC) Screening for depression Encounter for screening examination for other mental health and behavioral disorders Mild anemia Anemia, unspecified Type 2 diabetes mellitus with stage 3b chronic kidney disease, with long-term current use of insulin (HCC) Chronic renal disease, stage IV (HCC) Chronic kidney disease, Stage IV (severe) [facility]* Diagnosis HYPERTENSION NOS- Primary Unspecified essential [...] Hematuria, unspecified type documented in this encounter [facility]* Diagnosis HYPERTENSION NOS- Primary Unspecified essential [...] without residual deficits [facility]* Diagnosis HYPERTENSION NOS- Primary Unspecified essential [...] sites, unspecified chronicity documented in this encounter [facility] Discharge instructionsAdditional Instructions You do not require oxygen at rest, I do recommend wearing 2 L with ambulation and at night while you sleep.[facility] Work Phone: Reason for referral (narrative)No reason for referral information availableTwin Cities Community Hospital Work Phone: Summary Purpose Family History [...] FoundDocuments on File Type Date Recorded Patient Storage Management Consultant Expl anation Advance Directive(s) 01/20/2020 10:12 AM Advance Directive(s) 01/06/2020 11:19 AM Advance Directive(s) 01/05/2020 10:03 AM Documents on File Type Date Recorded Patient Storage Management Consultant Expl anation Advance Directive(s) 01/20/2020 10:12 AM Advance Directive Response Recorded Date/ Time Advance Directives Yes May 12 1:59pm Living Will Yes March 16, 2020 1 1:00am Power of Value Analyst Yes March 16, 2020 11:00am Advance Directive Response Recorded Date/ Time Name of Medical Power of Value Analyst ARACELI ESCAMILLAELL October 03, 2022 2:14pm Advance Directives Yes May 12 12:59pm Living Will Yes October 03, 2 022 2:14pm Power of Value Analyst Yes October 03, 2022 2:14pm Advance Directive Response Recorded Date/ Time Name of Medical Power of Value Analyst ARACELI CARLOS October 03, 2022 3:14pm Advance Directives Yes May 12 1:59pm Living Will Yes October 03, 022 3:14pm Power of Value Analyst Yes October 03, 2022 3:14pm Documents on File Type Date Recorded Patient Storage Management Consultant Expl anation Advance Directive(s) 01/20/2020 10:12 AM Advance Directive Response Recorded Date/ Time Living Will Yes January 05, 2025 12:28pm Do you have a Healthcare Power of Value Analyst? Yes January 05, 2025 12:28pm Name of Medical Power of Value Analyst Araceli Carlos January 05, 2025 12:28pm Advance Directives Yes May 12 1:59pm Advance Directive Response Recorded Date/ Time Do you have a Healthcare Power of Value Analyst? Yes June 14, 2025 8:35am Advance Directives Yes May 12 1:59pm Advance Directive Response Recorded Date/ Time Do you have a Healthcare Pow er of Value Analyst? Yes June 14, 2025 12:23pm Name of Medical Power of Value Analyst cezar mason June 14, 2025 12:23pm Advance Directives Yes May 12 1:59pm Hospital Course Note HNO ID: [id number] Author: Livan Rivera Service: Cardiac Surgery Author [...] (more content not included)... Note HNO ID: [id number] Author: Ever Lanier CNP Service: Cardiac Surgery Author Type: Nurse Practitioner Type: Procedures Filed: 01/14/2020 9:39 AM Note Text: BEDSIDE PROCEDURE NOTE Epicardardial Paing wire removal Procedure Date/Start Time: 01/14/2020 9:30 AM Performed by: Philip Lanier CNP Authorized by: Philip Lanier CNP The risks, benefits and alternatives of the procedure were reviewed with the patient/patient consumer sales representative. The patient/patient consumer sales representative agreed to proceed. Informed Consent Written Consent Obtained: N/A [place] Protocol Pre-procedure Details: Personnel directly involved with [...] not included)... Procedure Findings Note HNO ID: [id number] Author: Ever Lanier CNP Service: Cardiac Surgery Author Type: Nurse Practitioner Type: Procedures Filed: 01/14/2020 9:39 AM Note Text: BEDSIDE PROCEDURE NOTE Epicardardial Paing wire removal Procedure Date/Start Time: 01/14/2020 9:30 AM Performed by: Philip Lanier CNP Authorized by: Philip Lanier CNP The risks, benefits and alternatives of the procedure were reviewed with the patient/patient consumer sales representative. The patient/patient consumer sales representative agreed to proceed. Informed Consent Written Consent Obtained: N/A [place] Protocol Pre-procedure Details: Personnel directly involved with [...] Admit Date Atherosclerosis of coronary artery of [place] heart without angina pectoris April 30, 2025 [...] Admit Date Atherosclerosis of coronary artery of [place] heart without angina pectoris April 30, 2025 [...] Admit Date Atherosclerosis of coronary artery of [place] heart without angina pectoris April 30, 2025 [...] INJURY June 20, 2025 1: 20pm S/P [facility] 06/20July 02, 2025 1: 43pm Reason for Visit Admit Date Atherosclerosis of coronary artery of [place] heart without angina pectoris April 30, 2025 [...] 2025 11:09am Atherosclerosis of coronary artery of [place] heart without angina pectoris July 02, 2025 [...] ear canals Procedures CONSULT TO ENT OFFICE/OUTPATIENT [facility] 60 MINUTES Ishmael Davis, GLOBAL CTO.BARBED WIRE MACHINE OPERATOR [address] [place] [address] Referral ID Status Reason Start Date Expiration Date Visits Requested Visits Authorized [id number] Authorized PCP Requested Referral 05/12/2024 05/12/2025 1 1 Specialty Diagnoses / Procedures Referred By Contac t Referred To Contact Cardiology Diagnoses Heart failure with reduced ejection fraction (HCC) Hypertension goal BP (blood pressure) < 150/90 S/P CABG x 4 Paroxysmal atrial fibrillation with rapid ventricular response (HCC) Procedures CONSULT TO CARDIOLOGY OFFICE/OUTPATIENT [facility] [facility]ES Ishmael Davis, GLOBAL CTO.BARBED WIRE MACHINE OPERATOR [address] [place] [address] Referral ID Status Reason Start Date Expiration Date Visits Requested Visits Authorized [id number] Authorized PCP Requested Referral 09/18/2025 1 1 Specialty Diagnoses / Procedures Referred By Contac t Referred To [facility] Diagnoses Heart failure with reduced ejection fraction (HCC) Hypertension goal BP (blood pressure) < 150/90 S/P CABG x 4 Paroxysmal atrial fibrillation with rapid ventricular response (HCC) Procedures ECHO ECHO TTHRC R-T 2D W/WOM-MODE COMPL SPEC&COLR D Ishmael Davis, ALCIRA.BARBED WIRE MACHINE OPERATOR [address] [place] [address] [facility] [address] [place] [address] Referral ID Status Reason Start Date Expiration Date Visits Requested Visits Authorized [id number] New Request Auto-Generat ed Referral 4 09/18/2025 1 1 Additional Source Comments INFORMATION SOURCE (unrecogn ized section and content) DATE CREATED AUTHOR 03/20/2020 [facility] DATE CREATED AUTHOR AUTHOR'S ORGANIZ ATION 05/23/2020 [facility] DATE CREATED AUTHOR AUTHOR'S ORGANIZ ATION 07/05/2025 [facility] DATE CREATED AUTHOR AUTHOR'S ORGANIZ ATION 07/17/2025 [facility] Source Comments (unrecognize d section and content) In the event this informatio n is protected by the Federal Confidentiality of Alcohol and Drug Abuse Patient Records regulations: The Federal rules restrict any use of the information to criminally investigate or prosecute any alcohol or drug abuse patient.[facility] the event this information is protected by the Federal Confidentiality of Alcohol and Drug Abuse Patient Records regulations: The Federal rules restrict any use of the information to criminally investigate or prosecute any alcohol or drug abuse patient.[facility] CenterIn the event this information is protected by the Federal Confidentiality of Alcohol and Drug Abuse Patient Records regulations: The Federal rules restrict any use of the information to criminally investigate or prosecute any alcohol or drug abuse patient.[facility] CenterIn the event this information is protected by the Federal Confidentiality of Alcohol and Drug Abuse Patient Records regulations: The Federal rules restrict any use of the information to criminally investigate or prosecute any alcohol or drug abuse patient.[facility] CenterIn the event this information is protected by the Federal Confidentiality of Alcohol and Drug Abuse Patient Records regulations: The Federal rules restrict any use of the information to criminally investigate or prosecute any alcohol or drug abuse patient.[facility] CenterIn the event this information is protected by the Federal Confidentiality of Alcohol and Drug Abuse Patient Records regulations: The Federal rules restrict any use of the information to criminally investigate or prosecute any alcohol or drug abuse patient.[facility] CenterIn the event this information is protected by the Federal Confidentiality of Alcohol and Drug Abuse Patient Records regulations: The Federal rules restrict any use of the information to criminally investigate or prosecute any alcohol or drug abuse patient.[facility] CenterIn the event this information is protected by the Federal Confidentiality of Alcohol and Drug Abuse Patient Records regulations: The Federal rules restrict any use of the information to criminally investigate or prosecute any alcohol or drug abuse patient.[facility] CenterIn the event this information is protected by the Federal Confidentiality of Alcohol and Drug Abuse Patient Records regulations: The Federal rules restrict any use of the information to criminally investigate or prosecute any alcohol or drug abuse patient.[facility] CenterIn the event this information is protected by the Federal Confidentiality of Alcohol and Drug Abuse Patient Records regulations: The Federal rules restrict any use of the information to criminally investigate or prosecute any alcohol or drug abuse patient.[facility] CenterIn the event this information is protected by the Federal Confidentiality of Alcohol and Drug Abuse Patient Records regulations: The Federal rules restrict any use of the information to criminally investigate or prosecute any alcohol or drug abuse patient.[facility] CenterIn the event this information is protected by the Federal Confidentiality of Alcohol and Drug Abuse Patient Records regulations: The Federal rules restrict any use of the information to criminally investigate or prosecute any alcohol or drug abuse patient.[facility] CenterIn the event this information is protected by the Federal Confidentiality of Alcohol and Drug Abuse Patient Records regulations: The Federal rules restrict any use of the information to criminally investigate or prosecute any alcohol or drug abuse patient.[facility] CenterIn the event this information is protected by the Federal Confidentiality of Alcohol and Drug Abuse Patient Records regulations: The Federal rules restrict any use of the information to criminally investigate or prosecute any alcohol or drug abuse patient.[facility] CenterIn the event this information is protected by the Federal Confidentiality of Alcohol and Drug Abuse Patient Records regulations: The Federal rules restrict any use of the information to criminally investigate or prosecute any alcohol or drug abuse patient.[facility] CenterIn the event this information is protected by the Federal Confidentiality of Alcohol and Drug Abuse Patient Records regulations: The Federal rules restrict any use of the information to criminally investigate or prosecute any alcohol or drug abuse patient.[facility] CenterIn the event this information is protected by the Federal Confidentiality of Alcohol and Drug Abuse Patient Records regulations: The Federal rules restrict any use of the information to criminally investigate or prosecute any alcohol or drug abuse patient.[facility] CenterIn the event this information is protected by the Federal Confidentiality of Alcohol and Drug Abuse Patient Records regulations: The Federal rules restrict any use of the information to criminally investigate or prosecute any alcohol or drug abuse patient.[facility] CenterIn the event this information is protected by the Federal Confidentiality of Alcohol and Drug Abuse Patient Records regulations: The Federal rules restrict any use of the information to criminally investigate or prosecute any alcohol or drug abuse patient.[facility] CenterIn the event this information is protected by the Federal Confidentiality of Alcohol and Drug Abuse Patient Records regulations: The Federal rules restrict any use of the information to criminally investigate or prosecute any alcohol or drug abuse patient.[facility] CenterIn the event this information is protected by the Federal Confidentiality of Alcohol and Drug Abuse Patient Records regulations: The Federal rules restrict any use of the information to criminally investigate or prosecute any alcohol or drug abuse patient.[facility] CenterIn the event this information is protected by the Federal Confidentiality of Alcohol and Drug Abuse Patient Records regulations: The Federal rules restrict any use of the information to criminally investigate or prosecute any alcohol or drug abuse patient.[facility] CenterIn the event this information is protected by the Federal Confidentiality of Alcohol and Drug Abuse Patient Records regulations: The Federal rules restrict any use of the information to criminally investigate or prosecute any alcohol or drug abuse patient.[facility] CenterIn the event this information is protected by the Federal Confidentiality of Alcohol and Drug Abuse Patient Records regulations: The Federal rules restrict any use of the information to criminally investigate or prosecute any alcohol or drug abuse patient.[facility] CenterIn the event this information is protected by the Federal Confidentiality of Alcohol and Drug Abuse Patient Records regulations: The Federal rules restrict any use of the information to criminally investigate or prosecute any alcohol or drug abuse patient.[facility] CenterIn the event this information is protected by the Federal Confidentiality of Alcohol and Drug Abuse Patient Records regulations: The Federal rules restrict any use of the information to criminally investigate or prosecute any alcohol or drug abuse patient.[facility] CenterIn the event this information is protected by the Federal Confidentiality of Alcohol and Drug Abuse Patient Records regulations: The Federal rules restrict any use of the information to criminally investigate or prosecute any alcohol or drug abuse patient.[facility] CenterIn the event this information is protected by the Federal Confidentiality of Alcohol and Drug Abuse Patient Records regulations: The Federal rules restrict any use of the information to criminally investigate or prosecute any alcohol or drug abuse patient.[facility] CenterIn the event this information is protected by the Federal Confidentiality of Alcohol and Drug Abuse Patient Records regulations: The Federal rules restrict any use of the information to criminally investigate or prosecute any alcohol or drug abuse patient.[facility] CenterIn the event this information is protected by the Federal Confidentiality of Alcohol and Drug Abuse Patient Records regulations: The Federal rules restrict any use of the information to criminally investigate or prosecute any alcohol or drug abuse patient.[facility] CenterIn the event this information is protected by the Federal Confidentiality of Alcohol and Drug Abuse Patient Records regulations: The Federal rules restrict any use of the information to criminally investigate or prosecute any alcohol or drug abuse patient.[facility] CenterIn the event this information is protected by the Federal Confidentiality of Alcohol and Drug Abuse Patient Records regulations: The Federal rules restrict any use of the information to criminally investigate or prosecute any alcohol or drug abuse patient.[facility] CenterIn the event this information is protected by the Federal Confidentiality of Alcohol and Drug Abuse Patient Records regulations: The Federal rules restrict any use of the information to criminally investigate or prosecute any alcohol or drug abuse patient.[facility] CenterIn the event this information is protected by the Federal Confidentiality of Alcohol and Drug Abuse Patient Records regulations: The Federal rules restrict any use of the information to criminally investigate or prosecute any alcohol or drug abuse patient.[facility] CenterIn the event this information is protected by the Federal Confidentiality of Alcohol and Drug Abuse Patient Records regulations: The Federal rules restrict any use of the information to criminally investigate or prosecute any alcohol or drug abuse patient.[facility] CenterIn the event this information is protected by the Federal Confidentiality of Alcohol and Drug Abuse Patient Records regulations: The Federal rules restrict any use of the information to criminally investigate or prosecute any alcohol or drug abuse patient.[facility] CenterIn the event this information is protected by the Federal Confidentiality of Alcohol and Drug Abuse Patient Records regulations: The Federal rules restrict any use of the information to criminally investigate or prosecute any alcohol or drug abuse patient.[facility] CenterIn the event this information is protected by the Federal Confidentiality of Alcohol and Drug Abuse Patient Records regulations: The Federal rules restrict any use of the information to criminally investigate or prosecute any alcohol or drug abuse patient.[facility] CenterIn the event this information is protected by the Federal Confidentiality of Alcohol and Drug Abuse Patient Records regulations: The Federal rules restrict any use of the information to criminally investigate or prosecute any alcohol or drug abuse patient.[facility] CenterIn the event this information is protected by the Federal Confidentiality of Alcohol and Drug Abuse Patient Records regulations: The Federal rules restrict any use of the information to criminally investigate or prosecute any alcohol or drug abuse patient.[facility] CenterIn the event this information is protected by the Federal Confidentiality of Alcohol and Drug Abuse Patient Records regulations: The Federal rules restrict any use of the information to criminally investigate or prosecute any alcohol or drug abuse patient.[facility] CenterIn the event this information is protected by the Federal Confidentiality of Alcohol and Drug Abuse Patient Records regulations: The Federal rules restrict any use of the information to criminally investigate or prosecute any alcohol or drug abuse patient.[facility] CenterIn the event this information is protected by the Federal Confidentiality of Alcohol and Drug Abuse Patient Records regulations: The Federal rules restrict any use of the information to criminally investigate or prosecute any alcohol or drug abuse patient.[facility] CenterIn the event this information is protected by the Federal Confidentiality of Alcohol and Drug Abuse Patient Records regulations: The Federal rules restrict any use of the information to criminally investigate or prosecute any alcohol or drug abuse patient.[facility] CenterIn the event this information is protected by the Federal Confidentiality of Alcohol and Drug Abuse Patient Records regulations: The Federal rules restrict any use of the information to criminally investigate or prosecute any alcohol or drug abuse patient.[facility] CenterIn the event this information is protected by the Federal Confidentiality of Alcohol and Drug Abuse Patient Records regulations: The Federal rules restrict any use of the information to criminally investigate or prosecute any alcohol or drug abuse patient.[facility] CenterIn the event this information is protected by the Federal Confidentiality of Alcohol and Drug Abuse Patient Records regulations: The Federal rules restrict any use of the information to criminally investigate or prosecute any alcohol or drug abuse patient.[facility] CenterIn the event this information is protected by the Federal Confidentiality of Alcohol and Drug Abuse Patient Records regulations: The Federal rules restrict any use of the information to criminally investigate or prosecute any alcohol or drug abuse patient.[facility] CenterIn the event this information is protected by the Federal Confidentiality of Alcohol and Drug Abuse Patient Records regulations: The Federal rules restrict any use of the information to criminally investigate or prosecute any alcohol or drug abuse patient.[facility] CenterIn the event this information is protected by the Federal Confidentiality of Alcohol and Drug Abuse Patient Records regulations: The Federal rules restrict any use of the information to criminally investigate or prosecute any alcohol or drug abuse patient.[facility] CenterIn the event this information is protected by the Federal Confidentiality of Alcohol and Drug Abuse Patient Records regulations: The Federal rules restrict any use of the information to criminally investigate or prosecute any alcohol or drug abuse patient.[facility] CenterIn the event this information is protected by the Federal Confidentiality of Alcohol and Drug Abuse Patient Records regulations: The Federal rules restrict any use of the information to criminally investigate or prosecute any alcohol or drug abuse patient.[facility] CenterIn the event this information is protected by the Federal Confidentiality of Alcohol and Drug Abuse Patient Records regulations: The Federal rules restrict any use of the information to criminally investigate or prosecute any alcohol or drug abuse patient.[facility] CenterIn the event this information is protected by the Federal Confidentiality of Alcohol and Drug Abuse Patient Records regulations: The Federal rules restrict any use of the information to criminally investigate or prosecute any alcohol or drug abuse patient.[facility] CenterIn the event this information is protected by the Federal Confidentiality of Alcohol and Drug Abuse Patient Records regulations: The Federal rules restrict any use of the information to criminally investigate or prosecute any alcohol or drug abuse patient.[facility] CenterIn the event this information is protected by the Federal Confidentiality of Alcohol and Drug Abuse Patient Records regulations: The Federal rules restrict any use of the information to criminally investigate or prosecute any alcohol or drug abuse patient.[facility] CenterIn the event this information is protected by the Federal Confidentiality of Alcohol and Drug Abuse Patient Records regulations: The Federal rules restrict any use of the information to criminally investigate or prosecute any alcohol or drug abuse patient.[facility] CenterIn the event this information is protected by the Federal Confidentiality of Alcohol and Drug Abuse Patient Records regulations: The Federal rules restrict any use of the information to criminally investigate or prosecute any alcohol or drug abuse patient.[facility] CenterIn the event this information is protected by the Federal Confidentiality of Alcohol and Drug Abuse Patient Records regulations: The Federal rules restrict any use of the information to criminally investigate or prosecute any alcohol or drug abuse patient.[facility] CenterIn the event this information is protected by the Federal Confidentiality of Alcohol and Drug Abuse Patient Records regulations: The Federal rules restrict any use of the information to criminally investigate or prosecute any alcohol or drug abuse patient.[facility] CenterIn the event this information is protected by the Federal Confidentiality of Alcohol and Drug Abuse Patient Records regulations: The Federal rules restrict any use of the information to criminally investigate or prosecute any alcohol or drug abuse patient.[facility] CenterIn the event this information is protected by the Federal Confidentiality of Alcohol and Drug Abuse Patient Records regulations: The Federal rules restrict any use of the information to criminally investigate or prosecute any alcohol or drug abuse patient.[facility] CenterIn the event this information is protected by the Federal Confidentiality of Alcohol and Drug Abuse Patient Records regulations: The Federal rules restrict any use of the information to criminally investigate or prosecute any alcohol or drug abuse patient.[facility] CenterIn the event this information is protected by the Federal Confidentiality of Alcohol and Drug Abuse Patient Records regulations: The Federal rules restrict any use of the information to criminally investigate or prosecute any alcohol or drug abuse patient.[facility] CenterIn the event this information is protected by the Federal Confidentiality of Alcohol and Drug Abuse Patient Records regulations: The Federal rules restrict any use of the information to criminally investigate or prosecute any alcohol or drug abuse patient.[facility] CenterIn the event this information is protected by the Federal Confidentiality of Alcohol and Drug Abuse Patient Records regulations: The Federal rules restrict any use of the information to criminally investigate or prosecute any alcohol or drug abuse patient.[facility] Reason for Visit (unrecogniz ed section and [...] Date Comments Population Health Navigation Outreach 01/19/2025 [facility] Music Messenger (MM)COUNTS INCLUDE 234 BEDS AT THE [facility] [place] PCSA Reason Comments Nausea & Vomiting Wheezing x this AM Reason Comments Xray Results Reason Onset Date Comments Refill Request 03/18/2025 Reason Comments Medication Request Reason Onset Date Comments Refill Request 04/21/2025 Reason Onset Date Comments Population Health Navigation Outreach 05/06/2025 [facility] Music Messenger (MM)FLFlexenclosure [place] PCSA Reason Comments Medicare Wellness Exam Reason Comments Pelvic Pain pressure x 3 days Reason Onset Date Comments Population Health Navigation Outreach 06/16/2025 [facility] Music Messenger (MM)COUNTS INCLUDE 234 BEDS AT THE [facility] [place] [facility]SA Care Teams (unrecognized sec tion and content) Product Merchandiser Relationship Specialty Start Date End Date Anju Pearce MD [address], [place] [id number] PCP - General Internal Medicine 08/09/17 Kaylee (Pharmacist), [place] [address] [place] [address] Pharmacist Pharmacy 12/30/18 Product Merchandiser Relationship Specialty Start Date End Date Anju Pearce MD [address], [place] [id number] PCP - General Internal Medicine 08/09/17 Kaylee (Pharmacist), [place] [address] [place] [address] Pharmacist Pharmacy 12/30/18 Product Merchandiser Relationship Specialty Start Date End Date Anju Pearce MD [address] [place] [address] PCP - General Internal Medicine 08/09/17 Niravak (Pharmacist), [place] [address] [place] [address] Pharmacist Pharmacy 12/30/18 Product Merchandiser Relationship Specialty Start Date End Date Anju Pearce MD [address] [place] [address] PCP - General Internal Medicine 08/09/17 Kaylee (Pharmacist), [place] [address] [place] [address] Pharmacist Pharmacy 12/30/18 Product Merchandiser Relationship Specialty Start Date End Date Anju Pearce MD [address] [place] [address] PCP - General Internal Medicine 08/09/17 Kaylee (Pharmacist), [place] [address] [place] [address] Pharmacist Pharmacy 12/30/18 Product Merchandiser Relationship Specialty Start Date End Date Anju Pearce MD [address] [place] [address] PCP - General Internal Medicine 08/09/17 Kaylee (Pharmacist), [place] [address] [place] [address] Pharmacist Pharmacy 12/30/18 Product Merchandiser Relationship Specialty Start Date End Date Anju Pearce MD [address] [place] [address] PCP - General Internal Medicine 08/09/17 Kaylee (Pharmacist), [place] [address] [place] [address] Pharmacist Pharmacy 12/30/18 Product Merchandiser Relationship Specialty Start Date End Date Anju Pearce MD [address] [place] [address] PCP - General Internal Medicine 08/09/17 Kaylee (Pharmacist), [place] [address] [place] [address] Pharmacist Pharmacy 12/30/18 Product Merchandiser Relationship Specialty Start Date End Date Anju Pearce MD [address] [place] [address] PCP - General Internal Medicine 08/09/17 Kaylee (Pharmacist), [address] [place] [address] Pharmacist Pharmacy 12/30/18 Team Status: Active Member [...] ROHAN FELIX Attending Provider, Referring Provider Active Product Merchandiser Relationship Specialty Start Date End Date Anju Pearce MD [address] [place] [address] PCP - General Internal Medicine 08/09/17 Kaylee (Pharmacist), [place] [place] [address] Pharmacist Pharmacy 12/30/18 Product Merchandiser Relationship Specialty Start Date End Date Anju Pearce MD [address] [place] [address] PCP - General Internal Medicine 08/09/17 Kaylee (Pharmacist), [place] [address] [place] [address] Pharmacist Pharmacy 12/30/18 Product Merchandiser Relationship Specialty Start Date End Date Anju Pearce MD [address] [place] [address] PCP - General Internal Medicine 08/09/17 Kaylee (Pharmacist), Mignon [address] [place] [address] Pharmacist Pharmacy 12/30/18 Product Merchandiser Relationship Specialty Start Date End Date Anju Pearce MD [address] [place] [address] PCP - General Internal Medicine 08/09/17 Kaylee (Pharmacist), Mignon [address] [place] [address] Pharmacist Pharmacy 12/30/18 Product Merchandiser Relationship Specialty Start Date End Date Anju Pearce MD [address] [place] [address] PCP - General Internal Medicine 08/09/17 Kaylee (Pharmacist), Mignon [address] [place] [address] Pharmacist Pharmacy 12/30/18 Product Merchandiser Relationship Specialty Start Date End Date Anju Pearce MD [address] [place] [address] PCP - General Internal Medicine 08/09/17 Kaylee (Pharmacist), Mignon [address] [place] [address] Pharmacist Pharmacy 12/30/18 Product Merchandiser Relationship Specialty Start Date End Date Anju Pearce MD [address] [place] [address] PCP - General Internal Medicine 08/09/17 Kaylee (Pharmacist), Mignon [address] [place] [address] Pharmacist Pharmacy 12/30/18 Product Merchandiser Relationship Specialty Start Date End Date Anju Pearce MD [address] [place] [address] PCP - General Internal Medicine 08/09/17 Kaylee (Pharmacist), Mignon [address] [place] [address] Pharmacist Pharmacy 12/30/18 Product Merchandiser Relationship Specialty Start Date End Date Anju Pearce MD [address] [place] [address] PCP - General Internal Medicine 08/09/17 Kaylee (Pharmacist), Mignon [address] [place] [address] Pharmacist Pharmacy 12/30/18 Product Merchandiser Relationship Specialty Start Date End Date Anju Pearce MD [address] [place] [address] PCP - General Internal Medicine 08/09/17 Kaylee (Pharmacist), Mignon [address] [place] [address] Pharmacist Pharmacy 12/30/18 Product Merchandiser Relationship Specialty Start Date End Date Anju Pearce MD [address] [place] [address] PCP - General Internal Medicine 08/09/17 Kaylee (Pharmacist), Mignon [address] [place] [address] Pharmacist Pharmacy 12/30/18 Product Merchandiser Relationship Specialty Start Date End Date Anju Pearce MD [address] [place] [address] PCP - General Internal Medicine 08/09/17 Kaylee (Pharmacist), Mignon [address] [place] [address] Pharmacist Pharmacy 12/30/18 Product Merchandiser Relationship Specialty Start Date End Date Anju Pearce MD [address] [place] [address] PCP - General Internal Medicine 08/09/17 Galilea Hardy, [facility] [address] [place] [address] Pharmacist Pharmacy 10/31/23 Product Merchandiser Relationship Specialty Start Date End Date Anju Pearce MD [address] [place] [address] PCP - General Internal Medicine 08/09/17 [place], [facility] [address] [place] [address] Pharmacist Pharmacy 10/31/23 Product Merchandiser Relationship Specialty Start Date End Date Anju Pearce MD [address] [place] [address] PCP - General Internal Medicine 08/09/17 Product Merchandiser Relationship Specialty Start Date End Date Anju Pearce MD [address] [place] [address] PCP - General Internal Medicine 08/09/17 Product Merchandiser Relationship Specialty Start Date End Date Anju Pearce MD [address] [place] [address] PCP - General Internal Medicine 08/09/17 Product Merchandiser Relationship Specialty Start Date End Date Anju Pearce MD [address] [place] [address] PCP - General Internal Medicine 08/09/17 Product Merchandiser Relationship Specialty Start Date End Date Anju Pearce MD [address] [place] [address] PCP - General Internal Medicine 08/09/17 Product Merchandiser Relationship Specialty Start Date End Date Anju Pearce MD [address] [place] [address] PCP - General Internal Medicine 08/09/17 Product Merchandiser Relationship Specialty Start Date End Date Anju Pearce MD [address] [place] [address] PCP - General Internal Medicine 08/09/17 Product Merchandiser Relationship Specialty Start Date End Date Anju Pearce MD [address] [place] [address] PCP - General Internal Medicine 08/09/17 Product Merchandiser Relationship Specialty Start Date End Date Anju Pearce MD [address] [place] [address] PCP - General Internal Medicine 08/09/17 Product Merchandiser Relationship Specialty Start Date End Date Anju Pearce MD [address] [place] [address] PCP - General Internal Medicine 08/09/17 Product Merchandiser Relationship Specialty Start Date End Date Anju Pearce MD [address] [place] [address] PCP - General Internal Medicine 08/09/17 Ishmael Davis, GLOBAL CTO.BARBED WIRE MACHINE OPERATOR [address] [place] [address] Director Project Management Internal Medicine 10/13/24 Iesha Waddell GLOBAL CTO.MACHINE BOSS [address] [place] [address] Director Project Management Internal Medicine 10/13/24 Product Merchandiser Relationship Specialty Start Date End Date Anju Pearce MD [address] [place] [address] PCP - General Internal Medicine 08/09/17 Ishmael Davis, GLOBAL CTO.BARBED WIRE MACHINE OPERATOR [address] [place] [address] Director Project Management Internal Medicine 10/13/24 Iesha Waddell GLOBAL CTO.MACHINE BOSS [address] [place] [address] Director Project Management Internal Medicine 10/13/24 Product Merchandiser Relationship Specialty Start Date End Date Anju Pearce MD [address] [place] [address] PCP - General Internal Medicine 08/09/17 Ishmael Davis, GLOBAL CTO.BARBED WIRE MACHINE OPERATOR [address] [facility] [address] Director Project Management Internal Medicine 10/13/24 Iesha Waddell GLOBAL CTO.MACHINE BOSS [address] [facility] [address] Director Project Management Internal Medicine 10/13/24 Product Merchandiser Relationship Specialty Start Date End Date Anju Pearce MD [address] [place] [address] PCP - General Internal Medicine 08/09/17 Ishmael Davis, GLOBAL CTO.BARBED WIRE MACHINE OPERATOR [address] [place] [address] Director Project Management Internal Medicine 10/13/24 Iesha Waddell GLOBAL CTO.MACHINE BOSS [address] [facility] [address] Director Project Management Internal Medicine 10/13/24 Product Merchandiser Relationship Specialty Start Date End Date Anju Pearce MD [address] [place] [address] PCP - General Internal Medicine 08/09/17 Ishmael Davis, GLOBAL CTO.BARBED WIRE MACHINE OPERATOR [address] [place] [address] Director Project Management Internal Medicine 10/13/24 Iesha Waddell APRN.MACHINE BOSS [address] [place] [address] Director Project Management Internal Medicine 10/13/24 Product Merchandiser Relationship Specialty Start Date End Date Anju Pearce MD [address] [place] [address] PCP - General Internal Medicine 08/09/17 Ishmael Davis, GLOBAL CTO.BARBED WIRE MACHINE OPERATOR [address] [place] [address] Director Project Management Internal Medicine 10/13/24 Iesha Waddell APRN.MACHINE BOSS [address] [place] [address] Director Project Management Internal Medicine 10/13/24 Product Merchandiser Relationship Specialty Start Date End Date Anju Pearce MD [address] [place] [address] PCP - General Internal Medicine 08/09/17 Ishmael Davis, GLOBAL CTO.BARBED WIRE MACHINE OPERATOR [address] [place] [address] Director Project Management Internal Medicine 10/13/24 Iesha Waddell APRN.MACHINE BOSS [address] [place] [address] Director Project Management Internal Medicine 01/27/25 Product Merchandiser Relationship Specialty Start Date End Date Anju Pearce MD [address] [place] [address] PCP - General Internal Medicine 08/09/17 Ishmael Davis, GLOBAL CTO.BARBED WIRE MACHINE OPERATOR [address] [place] [address] Director Project Management Internal Medicine 10/13/24 Iesha Waddell GLOBAL CTO.MACHINE BOSS [address] [place] [address] [facility] Internal Medicine 01/27/25 Product Merchandiser Relationship Specialty Start Date End Date Anju Pearce MD [address] [place] [address] PCP - General Internal Medicine 08/09/17 Ishmael Davis, GLOBAL CTO.BARBED WIRE MACHINE OPERATOR [address] [place] [address] [facility] Internal Medicine 10/13/24 Iesha Waddell GLOBAL CTO.MACHINE BOSS [address] [place] [address] [facility] Internal Medicine 01/27/25 Product Merchandiser Relationship Specialty Start Date End Date Anju Pearce MD [address] [place] [address] PCP - General Internal Medicine 08/09/17 Ishmael Davis, GLOBAL CTO.BARBED WIRE MACHINE OPERATOR [address] [place] [address] Director Project Management Internal Medicine 10/13/24 Iesha Waddell APRN.MACHINE BOSS [address] [place] [address] [facility] Internal Medicine 01/27/25 Product Merchandiser Relationship Specialty Start Date End Date Anju Pearce MD [address] [place] [address] PCP - General Internal Medicine 08/09/17 Ishmael Davis, GLOBAL CTO.BARBED WIRE MACHINE OPERATOR [address] [place] [address] [facility] Internal Medicine 10/13/24 Iesha Waddell APRN.MACHINE BOSS [address] [place] [address] [facility] Internal Medicine 01/27/25 Product Merchandiser Relationship Specialty Start Date End Date Anju Pearce MD [address] [place] [address] PCP - General Internal Medicine 08/09/17 Iesha Waddell GLOBAL CTO.MACHINE BOSS [address] [place] [address] [facility] Internal Medicine 01/27/25 Ishmael Davis, GLOBAL CTO.BARBED WIRE MACHINE OPERATOR [address] [place] [address] [facility] Internal Medicine 03/25/25 Product Merchandiser Relationship Specialty Start Date End Date Anju Pearce MD [address] [place] [address] PCP - General Internal Medicine 08/09/17 Iesha Waddell APRN.MACHINE BOSS [address] [place] [address] Director Project Management Internal Medicine 01/27/25 Ishmael Davis, ALCIRA.BARBED WIRE MACHINE OPERATOR [address] [place] [address] Director Project Management Internal Medicine 03/25/25 Product Merchandiser Relationship Specialty Start Date End Date Anju Pearce MD [address] [place] [address] PCP - General Internal Medicine 08/09/17 Iesha Waddell APRN.MACHINE BOSS [address] [place] [address] Director Project Management Internal Medicine 01/27/25 Ishmael Davis, GLOBAL CTO.BARBED WIRE MACHINE OPERATOR [address] [place] [address] Director Project Management Internal Medicine 03/25/25 Product Merchandiser Relationship Specialty Start Date End Date Anju Pearce MD [address] [place] [address] PCP - General Internal Medicine 08/09/17 Ishmael Davis, GLOBAL CTO.BARBED WIRE MACHINE OPERATOR [address] [place] [address] Director Project Management Internal Medicine 10/13/24 03/24/25 Iesha Waddell APRN.MACHINE BOSS [address] [place] [address] Director Project Management Internal Medicine 01/27/25 Ishmael Davis, GLOBAL CTO.BARBED WIRE MACHINE OPERATOR [address] [place] [address] Director Project Management Internal Medicine 03/25/25 Team Status: Active Member [...] April 30, 2025 End: April 30, 2025 Product Merchandiser Relationship Specialty Start Date End Date Anju Pearce MD [address] [place] [address] PCP - General Internal Medicine 08/09/17 Iesha Waddell APRN.MACHINE BOSS [address] [place] [address] [facility] Internal Medicine 01/27/25 Ishmael Davis, ALCIRA.BARBED WIRE MACHINE OPERATOR [address] [place] [address] [facility] Internal Medicine 03/25/25 Product Merchandiser Relationship Specialty Start Date End Date Anju Pearce MD [address] [facility] [address] PCP - General Internal Medicine 08/09/17 Iesha Waddell APRN.MACHINE BOSS [address] [place] [address] Director Project Management Internal Medicine 01/27/25 Ishmael Davis APRN.BARBED WIRE MACHINE OPERATOR [address] [place] [address] Director Project Management Internal Medicine 03/25/25 Team Status: Active Member [...] Attending Provider Active Start: June 14, 2025 Product Merchandiser Relationship Specialty Start Date End Date Anju Pearce MD [address] [place] [address] PCP - General Internal Medicine 08/09/17 Iesha Waddell GLOBAL CTO.MACHINE BOSS [address] [place] [address] Director Project Management Internal Medicine 01/27/25 Ishmael Davis, GLOBAL CTO.BARBED WIRE MACHINE OPERATOR [address] [place] [address] [facility] Internal Medicine 03/25/25 Product Merchandiser Relationship Specialty Start Date End Date Anju Pearce MD [address] [facility], [place] [address] PCP - General Internal Medicine 08/09/17 Iesha Waddell GLOBAL CTO.MACHINE BOSS [address] [facility], [place] [address] Director Project Management Internal Medicine 01/27/25 Ishmael Davis, GLOBAL CTO.BARBED WIRE MACHINE OPERATOR [address] [place] [address] [facility] Internal Medicine 03/25/25 Team Status: Inactive [...] Active S tart: June 19, 2025 Dr. Ventura Ivy MD Admit Provider [...] July 02, 2025 End: July 02, 2025 Product Merchandiser Relationship Specialty Start Date End Date Anju Pearce MD [address] [facility] [address] PCP - General Internal Medicine 08/09/17 Iesha Waddell APRN.MACHINE BOSS [address] [facility] [address] Director Project Management Internal Medicine 01/27/25 Ishmael Davis APRN.BARBED WIRE MACHINE OPERATOR [address] [facility] [place] [address] Director Project Management Internal Medicine 03/25/25 Product Merchandiser Relationship Specialty Start Date End Date Anju Pearce MD [address] [facility] [place] [address] PCP - General Internal Medicine 08/09/17 Iesha Waddell APRN.MACHINE BOSS [address] [facility] [place] [address] Director Project Management Internal Medicine 01/27/25 Ishmael Davis APRN.BARBED WIRE MACHINE OPERATOR [address] [facility] [place] [address] Director Project Management Internal Medicine 03/25/25 Product Merchandiser Relationship Specialty Start Date End Date Anju Pearce MD [address] [facility] [place] [address] PCP - General Internal Medicine 08/09/17 Iesha Waddell APRN.MACHINE BOSS [address] [place] [address] [facility] Internal Medicine 01/27/25 DavisIshmael APRN.BARBED WIRE MACHINE OPERATOR [address] [place] [address] [facility] Internal Medicine 03/25/25 Goals (unrecognized section [...] BE BASED ON THE PRIMARY CLINICAL RECORDS. [facility]. provides no warranty or guarantee of the accuracy or completeness of information in this document.
[2025-07-26] MEDS: Insulin Glargine-YFGN 100 UNIT/ML Pen 14 UNIT SC (21:08)
[2025-07-26] MEDS: Heparin Injection (Vial) 5,000 UNIT/ML VIAL 5000 UNIT SC (21:09)
[2025-07-26] MEDS: Glycerin/Hypromellose/PEG400 15 ml Bottle 1 DRP EACH EYE (21:15)
[2025-07-27] VITALS (7 sets, daily range): BP systolic 144–163; BP diastolic 58–80; PULSE 63–99; RESP 16–20; TEMP 36.3–36.9; O2SAT 95–100
[2025-07-27 05:46] LABS: Hematocrit 27.4 % (37-47); Hemoglobin 8.8 g/dL (12.0-15.0); Immature Granulocytes Count 0.030 X10^3/uL (0.0-0.0); Mean Corp Hgb Conc 32.1 g/dL (32-36); Mean Corpuscular Volume 91.6 fL (81-99); Mean Platelet Vol. 10.8 fl (6.2-12.0); NRBC Flagged by Analyzer 0 % (0-5); Platelet Count 320 K/mm3 (150-450); RBC Distribution Width CV 15.4 % (11.6-14.6); RBC Distribution Width SD 51.1 fl (35.1-43.9); Red Blood Count 2.99 M/mm3 (4.2-5.4); White Blood Count 7.2 K/mm3 (4.4-11.0)
[2025-07-27 06:13] LABS: Anion Gap 13 (5-15); BUN 38 mg/dL (4-19); BUN/Creat Ratio 17.0 RATIO (10-20); Calcium,Total 9.2 mg/dL (7.6-11.0); Carbon Dioxide 21.8 mmol/L (21.0-32.0); Chloride 103 mmol/L (98-108); Estimated Creatinine Clearance 16.71 ml/min (50-250); Glucose 102 mg/dL (70-99); Magnesium 2.3 mg/dL (1.5-2.2); Potassium 4.2 mmol/L (3.3-5.1)
[2025-07-27] MEDS: guaiFENesin 10 ML UDC (200MG/10ML) 20 ML PO (08:32)
[2025-07-27] MEDS: Heparin Injection (Vial) 5,000 UNIT/ML VIAL 5000 UNIT SC ×2 (08:33→21:37)
[2025-07-27] MEDS: 0.9% Saline Lock 10 ML Syringe IV (08:36)
--- NOTE | 2025-07-27 09:25 | CASEMGMT ---
Social Work SW spoke with the patient in her room. Patient reported she lives alone. She has 2 aids that help her. One aid comes one day a week and the other comes once a month. She reported her daughter is supportive and she is a nurse. Patient still drives. Patient reported she called [employer] Whe[employer] for information. Patient reported she has no concerns for her safety. BUD Delgado
--- NOTE | 2025-07-27 09:36 | PN.HOSP_ITS ---
Reason for Visit Chief Complaint: Shortness of breath Subjective Subjective Breathing better. Objective Data Objective Data Vital Signs: Vital Signs Temp Pulse Resp BP Pulse Ox O2 Del Method O2 Flow Rate 36.3 C L 95 20 H 162/67 H 100 Nasal Cannula 2 07/27/25 08:25 07/27/25 08:25 07/27/25 08:25 07/27/25 08:25 07/27/25 08:25 07/27/25 08:07/27/25 08:25 Oxygen Flow Rate (L/min) 2 Oxygen Delivery Method Nasal Cannula Weight: 74.6 kg Body Mass Index (BMI) 30.0 Intake & Output: Intake and Output for Last 24 Hours 07/25/25 07/26/25 07/27/25 23:59 23:59 23:59 Intake Total 400 / 600 200 / 200 Output Total 750 / 750 Balance 400 / 50 -550 / -550 Lab / Micro Data 07/27/25 05:26 07/27/25 05:26 Labs: Laboratory Results - last 24 hr 07/26/25 09:13: Sodium 136, Potassium 4.3, Chloride 103, Carbon Dioxide 18.3 L, Anion Gap 15, BUN 37 H, Creatinine 2.18 H, Estim Creat Clear Calc 17.10 L, Est GFR (MDRD) Non-Af 21 L, BUN/Creatinine Ratio 17.1, Glucose 228 H, Calcium 9.3 07/26/25 12:27: POC Glucose 111 H 07/26/25 16:49: POC Glucose 184 H 07/26/25 21:05: POC Glucose 223 H 07/27/25 05:26: WBC 7.2, RBC 2.99 L, Hgb 8.8 L, Hct 27.4 L, MCV 91.6, MCH 29.4, MCHC 32.1, RDW Std Deviation 51.1 H, RDW Coeff of Hernan 15.4 H, Plt Count 320, MPV 10.8, Immature Gran % (Auto) 0.400, Neut % (Auto) 72.2 H, Lymph % (Auto) 16.0 L, Holmes % (Auto) 9.8, Eos % (Auto) 1.0, Baso % (Auto) 0.6, Absolute Neuts (auto) 5.2, Absolute Lymphs (auto) 1.15, Nucleated RBC % 0, Sodium 138, Potassium 4.2, Chloride 103, Carbon Dioxide 21.8, Anion Gap 13, BUN 38 H, Creatinine 2.20 H, E stim Creat Clear Calc 16.71 L, Est GFR (MDRD) Non-Af 21 L, BUN/Creatinine Ratio 17.0, Glucose 102 H, Calcium 9.2, Phosphorus 3.7, Magnesium 2.3 H 07/27/25 06:16: POC Glucose 93 Physical Exam Const alert and no apparent distress HEENT head/scalp atraumatic and moist oral mucous membranes Resp normal respiratory effort, no retractions, no use of accessory muscles and clear to auscultation bilaterally Cardio regular rate, regular rhythm, S1 normal heart sound and S2 normal heart sound GI normal to inspection, nondistended, normoactive bowel sounds, soft to palpation, non-tender and non-distended Extremity Extremity Narrative: non-pitting LE edema. Neuro Sensorium / Orientation: awake and alert Assessment & Plan Assessment/Plan (1) Congestive heart failure (CHF): QUALIFIERS: Heart failure chronicity: acute on chronic Heart failure type: diastolic Qualified Code(s): I50.33 - Acute on chronic diastolic (congestive) heart failure PLAN: Plan Acute HFpEF * IV furosemide * 2D echo obtain on 06/19/2025 did show Normal LV size. Mild eccentric left ventricular hypertrophy. The estimated ejection fraction is 55 %. Left ventricular systolic function is normal. Moderate (2+) eccentric mitral valve insufficiency. Mild to moderate (1-2+) tricuspid valve insufficiency. Pulmonary artery systolic pressure is 36 mmHg. Stage 2 diastolic dysfunction. Chronic conditions: * Anemia? Secondary to chronic disorder monitoring H&H and transfuse if patient becomes symptomatic or hemoglobin falls below 7. * Chronic kidney disease stage IV? Patient kidney function at baseline. Renal ultrasound obtained on 06/15/2025 demonstrated normal ultrasound * Hypertension? Blood pressure controlled, home medications continued with dose adjustment as needed * Diabetes mellitus type II- Patient is on long-acting insulin did continue also placed on Accu-Cheks a.c. and at bedtime and covered with sliding scale insulin * Coronary artery disease? previous CABG(CHAUDHARI to diagonal sequenced to LAD, SVG to OM sequenced to RPL) in January 2020. Patient remains on guideline directed medical therapy * Paroxysmal atrial fibrillation? 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 Treated with laser therapy at the [facility] * History of gout? Patient is on allopurinol plan is to resume following med rec * Dyslipidemia?Patient is on statin therapy, continued at home dose DVT prophylaxis? Subcu heparin Charges/Coding Visit Charges Inpatient E&M: 34389 Subs Hosp L2
--- NOTE | 2025-07-27 13:58 | CHAPLAIN ---
Type of Pastoral Visit _x__ Initial Visit ___ Follow-up Visit ___ On-call Visit ___ General Patient Visit ___ Spiritual Assessment ___ Family Conference ___ Bereavement ___ Rapid Response ___ Code Blue ___ Other (describe below) Pastoral Care Referral From _x__ Patient ___ Family ___ Nurse ___ Physician ___ Orthodontic Band Maker ___ Awning Craftsperson ___ Other (describe below) Sacrament/Intervention _x__ Active listening ___ Anointing ___ Yazidism ___ Bereavement ___ Communion ___ Lelo exploration ___ ___ Life review ___ Prayer ___ Reconciliation ___ Sacrament of Sick _x__ Supportive presence ___ Wedding ___ Other (describe below) Pastoral Comments patient had a visitor with her in the room; pt is pleasant and welcoming; pt says that she acknowledges need for more O2 and will learn from this experience; pt has a strong lelo background; pt welcomes future visits as this was kept short due to visitor priority
--- NOTE | 2025-07-27 16:05 | CASEMGMT ---
RITA PEREZ Face to Face with patient for initial transition planning/care coordination assessment. RN CM introduced self and role at [facility]. Patient sitting in chair, alert and oriented. Patient willing to participate in assessment and is able to answer all questions appropriately. Care providers, pharmacy, and demographics verified. Strata:3 PCP: Kelvin Specialists: LISA, custom protection officer; Bhanu, feed mill manager Preferred Pharmacy: [facility] Insurance: [facility], [employer] Prescription Benefit: yes Living Will/HPOA: yes, daughter Araceli Carlos LNOK: daughter Living Arrangements: Patient lives alone in a single story home. Patient states she is independent and is able to ambulate stairs to basement. Transportation: self, daughter DME/HHC: Patient has raised toilet, cane, grab bars, walker at home. Will monitor for home oxygen, prefers [employer]. No previous HHC or SNF. Patient was attending outpatient therapy at [facility] prior to admission. Patient wishes to discharge home, denies need for home health at this time. Patient states she has no further needs or concerns at this time. CM to follow for discharge planning needs that may arise. Disposition Plan: Patient to discharge home with family support and follow-up plans in place. Nelsy SENA, RN, CM
[2025-07-27] MEDS: Insulin Glargine-YFGN 100 UNIT/ML Pen 14 UNIT SC (20:51)
[2025-07-27] MEDS: Glycerin/Hypromellose/PEG400 15 ml Bottle 1 DRP EACH EYE (20:56)
[2025-07-28 03:19] VITALS: BP 135/69; PULSE 72; RESP 16; TEMP 36.7; O2SAT 99
[2025-07-28 05:27] LABS: Hematocrit 26.5 % (37-47); Hemoglobin 8.7 g/dL (12.0-15.0); Immature Granulocytes Count 0.020 X10^3/uL (0.0-0.0); Mean Corp Hgb Conc 32.8 g/dL (32-36); Mean Corpuscular Volume 91.4 fL (81-99); Mean Platelet Vol. 10.8 fl (6.2-12.0); NRBC Flagged by Analyzer 0 % (0-5); Platelet Count 280 K/mm3 (150-450); RBC Distribution Width CV 15.0 % (11.6-14.6); RBC Distribution Width SD 50.4 fl (35.1-43.9); Red Blood Count 2.90 M/mm3 (4.2-5.4); White Blood Count 5.3 K/mm3 (4.4-11.0)
[2025-07-28 05:51] LABS: Anion Gap 14 (5-15); BUN 41 mg/dL (4-19); BUN/Creat Ratio 17.2 RATIO (10-20); Calcium,Total 8.8 mg/dL (7.6-11.0); Carbon Dioxide 22.6 mmol/L (21.0-32.0); Chloride 100 mmol/L (98-108); Estimated Creatinine Clearance 15.52 ml/min (50-250); Glucose 80 mg/dL (70-99); Potassium 3.9 mmol/L (3.3-5.1)
[2025-07-28 06:47] VITALS: O2SAT 94
--- NOTE | 2025-07-28 08:28 | PCM.PN.HOSP ---
Reason for Visit Chief Complaint: Shortness of breath Subjective Subjective Feeling well. Still with LE edema. Objective Data Objective Data Vital Signs: Vital Signs Temp Pulse Resp BP Pulse Ox O2 Del Method O2 Flow Rate 36.7 C 72 16 135/69 H 99 Nasal Cannula 2 07/28/25 03:19 07/28/25 03:19 07/28/25 03:19 07/28/25 03:19 07/28/25 03:19 07/28/25 04:00 07/28/25 04:00 Oxygen Flow Rate (L/min) 2 Oxygen Delivery Method Nasal Cannula Weight: 74.6 kg Body Mass Index (BMI) 30.0 Intake & Output: Intake and Output for Last 24 Hours 07/26/25 07/27/25 07/28/25 23:59 23:59 23:59 Intake Total 400 / 600 940 / 940 Output Total 750 / 750 200 / 200 Balance 400 / 50 190 / 190 -200 / -200 Lab / Micro Data 07/28/25 04:56 07/28/25 04:56 Labs: Laboratory Results - last 24 hr 07/27/25 12:07: POC Glucose 141 H 07/27/25 17:17: POC Glucose 186 H 07/27/25 20:48: POC Glucose 177 H 07/28/25 04:56: WBC 5.3, RBC 2.90 L, Hgb 8.7 L, Hct 26.5 L, MCV 91.4, MCH 30.0, MCHC 32.8, RDW Std Deviation 50.4 H, RDW Coeff of Hernan 15.0 H, Plt Count 280, MPV 10.8, Immature Gran % (Auto) 0.400, Neut % (Auto) 51.3, Lymph % (Auto) 29.1, Sutter % (Auto) 17.1 H, Eos % (Auto) 1.5, Baso % (Auto) 0.6, Absolute Neuts (auto) 2.7, Absolute Lymphs (auto) 1.55, Nucleated RBC % 0, Sodium 137, Potassium 3.9, Chloride 100, Carbon Dioxide 22.6, Anion Gap 14, BUN 41 H, Creatinine 2.37 H, Estim Creat Clear Calc 15.52 L, Est GFR (MDRD) Non-Af 19 L, BUN/Creatinine Ratio 17.2, Glucose 80, Calcium 8.8 07/28/25 06:27: POC Glucose 85 Physical Exam Const alert and no apparent distress HEENT head/scalp atraumatic and moist oral mucous membranes Resp normal respiratory effort and no retractions Resp Narrative: bibasilar crackles. Cardio regular rate, regular rhythm, S1 normal heart sound and S2 normal heart sound GI normal to inspection, nondistended, normoactive bowel sounds, soft to palpation, non-tender and non-distended Extremity General Extremity: edema bilateral lower extremity Details: moderate Neuro oriented x3 and CN's II-XII intact bilaterally Assessment & Plan Assessment/Plan (1) Congestive heart failure (CHF): QUALIFIERS: Heart failure chronicity: acute on chronic Heart failure type: diastolic Qualified Code(s): I50.33 - Acute on chronic diastolic (congestive) heart failure PLAN: Plan Acute HFpEF Continue IV furosemide as pt still with ongoing evidence of volume overload. 2D echo obtain on 06/19/2025 did show Normal LV size. Mild eccentric left ventricular hypertrophy. The estimated ejection fraction is 55 %. Left ventricular systolic function is normal. Moderate (2+) eccentric mitral valve insufficiency. Mild to moderate (1-2+) tricuspid valve insufficiency. Pulmonary artery systolic pressure is 36 mmHg. Stage 2 diastolic dysfunction. Chronic conditions: Anemia? Secondary to chronic disorder monitoring H&H and transfuse if patient becomes symptomatic or hemoglobin falls below 7. Chronic kidney disease stage IV? Patient kidney function at baseline. Renal ultrasound obtained on 06/15/2025 demonstrated normal ultrasound Hypertension? Blood pressure controlled, home medications continued with dose adjustment as needed Diabetes mellitus type II- Patient is on long-acting insulin did continue also placed on Accu-Cheks a.c. and at bedtime and covered with sliding scale insulin Coronary artery disease? previous CABG(CHAUDHARI to diagonal sequenced to LAD, SVG to OM sequenced to RPL) in January 2020. Patient remains on guideline directed medical therapy Paroxysmal atrial fibrillation? 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 Treated with laser therapy at the [facility] History of gout? Patient is on allopurinol plan is to resume following med rec Dyslipidemia?Patient is on statin therapy, continued at home dose DVT prophylaxis? Subcu heparin Charges/Coding Visit Charges Inpatient E&M: 76369 Subs Hosp L2
[2025-07-28 08:29] VITALS: O2SAT 85; O2SAT 91; O2SAT 93
[2025-07-28] MEDS: Heparin Injection (Vial) 5,000 UNIT/ML VIAL 5000 UNIT SC ×2 (10:19→21:22)
[2025-07-28 13:46] VITALS: BP 146/59; PULSE 67; RESP 17; TEMP 37.1; O2SAT 99
--- NOTE | 2025-07-28 16:33 | CHAPLAIN ---
Type of Pastoral Visit ___ Initial Visit _x__ Follow-up Visit ___ On-call Visit ___ General Patient Visit ___ Spiritual Assessment ___ Family Conference ___ Bereavement ___ Rapid Response ___ Code Blue ___ Other (describe below) Pastoral Care Referral From _x__ Patient ___ Family ___ Nurse ___ Physician ___ Cytogenetic Technician ___ Film Tests Checker ___ Other (describe below) Sacrament/Intervention _x__ Active listening ___ Anointing ___ Taoism ___ Bereavement ___ Communion ___ Lelo exploration ___ _x__ Life review _x__ Prayer ___ Reconciliation ___ Sacrament of Sick _x__ Supportive presence ___ Wedding ___ Other (describe below) Pastoral Comments patient admits that it is hard to think about her future as she recognizes changes in her health; pt has lived 50 years in her home and the last few alone; pt is reluctant to give up her independence and is struggling with that; pt welcomes time to process her thoughts and consideration of accepting the changes and involvement of family care; prayer is welcomed as well
[2025-07-28] MEDS: Insulin Glargine-YFGN 100 UNIT/ML Pen 14 UNIT SC (21:21)
[2025-07-28] MEDS: Glycerin/Hypromellose/PEG400 15 ml Bottle 1 DRP EACH EYE (21:22)
[2025-07-28 21:23] VITALS: BP 146/69; PULSE 74; RESP 16; TEMP 36.9; O2SAT 99
[2025-07-29] VITALS (8 sets, daily range): BP systolic 145–156; BP diastolic 52–61; PULSE 71–86; RESP 16; TEMP 36.6–36.8; O2SAT 91–99; BMI 29.2; BMI 29.0
[2025-07-29 05:23] LABS: Hematocrit 27.2 % (37-47); Hemoglobin 8.9 g/dL (12.0-15.0); Immature Granulocytes Count 0.010 X10^3/uL (0.0-0.0); Mean Corp Hgb Conc 32.7 g/dL (32-36); Mean Corpuscular Volume 90.7 fL (81-99); Mean Platelet Vol. 11.0 fl (6.2-12.0); NRBC Flagged by Analyzer 0 % (0-5); Platelet Count 301 K/mm3 (150-450); RBC Distribution Width CV 14.6 % (11.6-14.6); RBC Distribution Width SD 48.6 fl (35.1-43.9); Red Blood Count 3.00 M/mm3 (4.2-5.4); White Blood Count 5.5 K/mm3 (4.4-11.0)
[2025-07-29 05:46] LABS: Anion Gap 16 (5-15); BUN 47 mg/dL (4-19); BUN/Creat Ratio 20.7 RATIO (10-20); Calcium,Total 8.8 mg/dL (7.6-11.0); Carbon Dioxide 22.8 mmol/L (21.0-32.0); Chloride 100 mmol/L (98-108); Estimated Creatinine Clearance 15.85 ml/min (50-250); Glucose 113 mg/dL (70-99); Potassium 3.7 mmol/L (3.3-5.1)
--- NOTE | 2025-07-29 08:02 | PN.HOSP_ITS ---
Reason for Visit Chief Complaint: Shortness of breath Subjective Subjective Feeling well. Decreased edema in LE. Objective Data Objective Data Vital Signs: Vital Signs Temp Pulse Resp BP Pulse Ox O2 Del Method O2 Flow Rate 36.7 C 86 16 145/54 H 99 Nasal Cannula 2 07/29/25 04:00 07/29/25 07:37 07/29/25 04:00 07/29/25 04:00 07/29/25 04:00 07/29/25 04:30 07/29/25 04:30 Oxygen Flow Rate (L/min) 2 Oxygen Delivery Method Nasal Cannula Weight: 72 kg Body Mass Index (BMI) 29.0 Intake & Output: Intake and Output for Last 24 Hours 07/27/25 07/28/25 07/29/25 23:59 23:59 23:59 Intake Total 940 / 940 700 / 700 Output Total 750 / 750 1000 / 1000 Balance 190 / 190 -300 / -300 Lab / Micro Data 07/29/25 04:36 07/29/25 04:36 Labs: Laboratory Results - last 24 hr 07/28/25 11:36: POC Glucose 168 H 07/28/25 16:33: POC Glucose 198 H 07/28/25 21:20: POC Glucose 243 H 07/29/25 04:36: WBC 5.5, RBC 3.00 L, Hgb 8.9 L, Hct 27.2 L, MCV 90.7, MCH 29.7, MCHC 32.7, RDW Std Deviation 48.6 H, RDW Coeff of Hernan 14.6, Plt Count 301, MPV 11.0, Immature Gran % (Auto) 0.200, Neut % (Auto) 51.3, Lymph % (Auto) 30.5, M tucker % (Auto) 15.1 H, Eos % (Auto) 2.2, Baso % (Auto) 0.7, Absolute Neuts (auto) 2.8, Absolute Lymphs (auto) 1.67, Nucleated RBC % 0, Sodium 138, Potassium 3.7, Chloride 100, Carbon Dioxide 22.8, Anion Gap 16 H, BUN 47 H, Creatinine 2.28 H, Estim Creat Clear Calc 15.85 L, Est GFR (MDRD) Non-Af 20 L, BUN/Creatinine Ratio 20.7 H, Glucose 113 H, Calcium 8.8 Physical Exam Const alert and no apparent distress HEENT head/scalp atraumatic and moist oral mucous membranes Resp normal respiratory effort, no retractions, no use of accessory muscles and clear to auscultation bilaterally Cardio regular rate, regular rhythm, S1 normal heart sound and S2 normal heart sound GI normal to inspection, nondistended, normoactive bowel sounds, soft to palpation, non-tender and non-distended Extremity Extremity Narrative: decreased LE edema. Assessment & Plan Assessment/Plan (1) Congestive heart failure (CHF): QUALIFIERS: Heart failure chronicity: acute on chronic Heart failure type: diastolic Qualified Code(s): I50.33 - Acute on chronic diastolic (congestive) heart failure PLAN: Plan Acute HFpEF * improved. Does not require oxygen based on the ambulatory pulse ox. Will discharge with furosemide 40mg/d, scheduled, rather than PRN. No ACEi/ARB given CKD. * 2D echo obtain on 06/19/2025 did show Normal LV size. Mild eccentric left ventricular hypertrophy. The estimated ejection fraction is 55 %. Left ventricular systolic function is normal. Moderate (2+) eccentric mitral valve insufficiency. Mild to moderate (1-2+) tricuspid valve insufficiency. Pulmonary artery systolic pressure is 36 mmHg. Stage 2 diastolic dysfunction. Chronic conditions: * Anemia? Secondary to chronic disorder monitoring H&H and transfuse if patient becomes symptomatic or hemoglobin falls below 7. * Chronic kidney disease stage IV? Patient kidney function at baseline. Renal ultrasound obtained on 06/15/2025 demonstrated normal ultrasound * Hypertension? Blood pressure controlled, home medications continued with dose adjustment as needed * Diabetes mellitus type II- Patient is on long-acting insulin did continue also placed on Accu-Cheks a.c. and at bedtime and covered with sliding scale insulin * Coronary artery disease? previous CABG(CHAUDHARI to diagonal sequenced to LAD, SVG to OM sequenced to RPL) in January 2020. Patient remains on guideline directed medical therapy * Paroxysmal atrial fibrillation? 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 Treated with laser therapy at the [facility] * History of gout? Patient is on allopurinol plan is to resume following med rec * Dyslipidemia?Patient is on statin therapy, continued at home dose DVT prophylaxis? Subcu heparin
[2025-07-29] MEDS: Heparin Injection (Vial) 5,000 UNIT/ML VIAL 5000 UNIT SC (09:11)
--- NOTE | 2025-07-29 13:36 | DS.PCM_ITS ---
Providers Date of Admission: 07/26/25 Primary Care Physician: Dr. Siena Warren MD Reason For Visit: CHF Diagnosis Discharge Diagnosis (1) Congestive heart failure (CHF): Status: Acute Code(s): I50.9 - Heart failure, unspecified Qualifiers: Heart failure type: diastolic Heart failure chronicity: acute on chronic Qualified Code(s): I50.33 - Acute on chronic diastolic (congestive) heart failure Plan Acute HFpEF * improved. Does not require oxygen based on the ambulatory pulse ox. Will discharge with furosemide 40mg/d, scheduled, rather than PRN. No ACEi/ARB given CKD. * 2D echo obtain on 06/19/2025 did show Normal LV size. Mild eccentric left ventricular hypertrophy. The estimated ejection fraction is 55 %. Left ventricular systolic function is normal. Moderate (2+) eccentric mitral valve insufficiency. Mild to moderate (1-2+) tricuspid valve insufficiency. Pulmonary artery systolic pressure is 36 mmHg. Stage 2 diastolic dysfunction. Chronic conditions: * Anemia? Secondary to chronic disorder monitoring H&H and transfuse if patient becomes symptomatic or hemoglobin falls below 7. * Chronic kidney disease stage IV? Patient kidney function at baseline. Renal ultrasound obtained on 06/15/2025 demonstrated normal ultrasound * Hypertension? Blood pressure controlled, home medications continued with dose adjustment as needed * Diabetes mellitus type II- Patient is on long-acting insulin did continue also placed on Accu-Cheks a.c. and at bedtime and covered with sliding scale insulin * Coronary artery disease? previous CABG(CHAUDHARI to diagonal sequenced to LAD, SVG to OM sequenced to RPL) in January 2020. Patient remains on guideline directed medical therapy * Paroxysmal atrial fibrillation? 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 Treated with laser therapy at the [facility] * History of gout? Patient is on allopurinol plan is to resume following med rec * Dyslipidemia?Patient is on statin therapy, continued at home dose DVT prophylaxis? Subcu heparin Medications at Discharge Home Medications allopurinol 100 mg tablet 100 mg PO DAILYCM gout 04/28/14 aspirin 81 mg chewable tablet 81 mg PO DAILY heart 01/17/20 calcium carbonate-vitamin D3 600 mg-125 unit tablet 1 ea PO DAILY bones 01/17/20 propylene glycol 0.6 % eye drops (Systane Balance) 1 drp ophthalmic (eye) QHS Dry Eyes 06/28/20 insulin aspart U-100 100 unit/mL (3 mL) subcutaneous pen 7 unit subcut QAC dm 04/30/25 rosuvastatin 5 mg tablet 5 mg PO QDAY 04/30/25 insulin glargine-yfgn 100 unit/mL (3 mL) subcutaneous pen 14 unit subcut QHS 06/14/25 ferrous sulfate 325 mg (65 mg iron) tablet (FeroSul) 325 mg PO DAILY@1200 30 days #30 tabs 06/20/25 carvedilol 12.5 mg tablet (Coreg) 12.5 mg PO BID #60 tabs 07/02/25 furosemide 40 mg tablet 40 mg PO DAILY edema #30 tabs 07/29/25 Hospital Course Operations None Procedures None Summary of Care Provided Hospital Course: Greater than 30 minutes spent on discharge This is an 89-year-old female presents with shortness of breath. Patient had chest x-ray showing pulmonary vascular congestion and did have lower extremity edema. In looking back at her weights, her weight has gone up roughly 3 kg since her recent admission in June. Patient had been discharged on furosemide 20 mg daily but then was changed over to 40 daily as needed. Patient will be discharged with furosemide 40 mg daily scheduled. Patient was diuresed with IV furosemide while she was here and has done well. She was short of breath but we did do an ambulatory pulse ox and patient actually did very well and did not require any oxygen with rest nor activity. Patient advised to continue to monitor fluid intake and to continue to check daily weights. Weight / BMI Weight Weight: 72 kg Body Mass Index (BMI) 29.0 ABG / Lab / Microbiology Data 07/29/25 04:36 07/29/25 04:36 Laboratory: Laboratory Results - last 24 hr 07/28/25 16:33: POC Glucose 198 H 07/28/25 21:20: POC Glucose 243 H 07/29/25 04:36: WBC 5.5, RBC 3.00 L, Hgb 8.9 L, Hct 27.2 L, MCV 90.7, MCH 29.7, MCHC 32.7, RDW Std Deviation 48.6 H, RDW Coeff of Hernan 14.6, Plt Count 301, MPV 11.0, Immature Gran % (Auto) 0.200, Neut % (Auto) 51.3, Lymph % (Auto) 30.5, M tucker % (Auto) 15.1 H, Eos % (Auto) 2.2, Baso % (Auto) 0.7, Absolute Neuts (auto) 2.8, Absolute Lymphs (auto) 1.67, Nucleated RBC % 0, Sodium 138, Potassium 3.7, Chloride 100, Carbon Dioxide 22.8, Anion Gap 16 H, BUN 47 H, Creatinine 2.28 H, Estim Creat Clear Calc 15.85 L, Est GFR (MDRD) Non-Af 20 L, BUN/Creatinine Ratio 20.7 H, Glucose 113 H, Calcium 8.8 07/29/25 11:24: POC Glucose 164 H D/C Instructions DC O2, CPAP, BIPAP Needs Home O2 Discharge instructions: No Meaningful Use Info Meaningful Use Meaningful Use Diagnoses (Choose all that apply): CHF CHF ISABELLA/ARB ordered at discharge?: No Reason ISABELLA/ARB not ordered?: Worsening renal disease Documented LVEF (%): 55 Discharge Plan Admission Admit Date/Time: 07/26/25 10:10 Primary Reason for Your Visit: Heart failure exacerbation Attending Provider: Steven Linda Primary Care Provider: Siena Warren Consulting Providers: Ventura Ivy Instructions Additional Instructions / Restrictions: You had heart failure exacerbation with fluid buildup in your lungs as well as her legs. He did well with the IV Lasix (furosemide). Your dose of Lasix has changed recently and have you take 40 mg daily and if you are putting on 2 pounds in 1 day or 3 pounds in 1 week, I would like for you to take an additional dose that day. So please check your weight daily and keep a record. Discharge Orders/Prescriptions Prescriptions: Continued Systane Balance 0.6 % drops 1 drp OPHTHALMIC QHS rosuvastatin 5 mg tablet 5 mg PO QDAY carvedilol [Coreg] 12.5 mg tablet 12.5 mg PO BID Qty: 60 6RF Rx Instructions: must administer with a meal/food allopurinol 100 MG tablet 100 mg PO DAILYCM Patient Comments: GOUT aspirin 81 MG tablet,chewable 81 mg PO DAILY calcium carbonate-vitamin D3 1 EACH tablet 1 ea PO DAILY insulin aspart U-100 100 unit/mL (3 mL) insulin pen 7 unit subcut QAC Rx Instructions: 8 units AM, 3 units, 6 units dinner insulin glargine-yfgn 100 unit/mL (3 mL) insulin pen 14 unit subcut QHS ferrous sulfate [FeroSul] 325 mg (65 mg iron) Tablet 325 mg PO DAILY@1200 30 Days Qty: 30 0RF Changed furosemide 40 mg tablet 40 mg PO DAILY Qty: 30 0RF Rx Instructions: and as needed daily if your weight increases by 2 pounds in 1 day, or 3 pounds in 1 week. Discontinued amlodipine 10 mg tablet 10 mg PO QDAY pantoprazole 20 mg Tablet,Delayed Release (Dr/Ec) 20 mg PO DAILY 30 Days Qty: 30 0RF Referrals / Follow Up: [facility] [Provider Group] - 08/05/25 1:00 pm Siena Warren MD [Primary Care Provider, Internal Medicine] - Within 2 Weeks Disposition Disposition (needs filled in before D/C Order can be placed): Home, Self Care Charges/Coding Visit Charges Inpatient E&M: 98706 Disch Hosp >30min
--- NOTE | 2025-07-29 14:14 | CASEMGMT ---
Patient has order for discharge. Patient does not qualify for home oxygen. RN CM in to discuss needs at discharge. Patient states she will return to [facility] to continue outpatient therapy. Patient denies needs or help at discharge. Patient had no further questions or concern concern.
--- NOTE | 2025-07-29 14:50 | PHA.DC_ITS ---
Pharmacy [facility] has performed discharge medication counseling for this patient. The patient was counseled on the following discharge medications and changes in medications for homegoing review. - Furosemide 40 mg tablet The Reason for Use, instructions for use, and potential side effects were reviewed for all new medications. The patient's questions regarding all of their medications were answered. The patient was able to verbally demonstrate an understanding of their discharge medications. Medications at Discharge Home Medications allopurinol 100 mg tablet 100 mg PO DAILYCM gout 04/28/14 aspirin 81 mg chewable tablet 81 mg PO DAILY heart 01/17/20 calcium carbonate-vitamin D3 600 mg-125 unit tablet 1 ea PO DAILY bones 01/17/20 propylene glycol 0.6 % eye drops (Systane Balance) 1 drp ophthalmic (eye) QHS Dry Eyes 06/28/20 insulin aspart U-100 100 unit/mL (3 mL) subcutaneous pen 7 unit subcut QAC dm 04/30/25 rosuvastatin 5 mg tablet 5 mg PO QDAY 04/30/25 insulin glargine-yfgn 100 unit/mL (3 mL) subcutaneous pen 14 unit subcut QHS 06/14/25 ferrous sulfate 325 mg (65 mg iron) tablet (FeroSul) 325 mg PO DAILY@1200 30 days #30 tabs 06/20/25 carvedilol 12.5 mg tablet (Coreg) 12.5 mg PO BID #60 tabs 07/02/25 furosemide 40 mg tablet 40 mg PO DAILY edema #30 tabs 07/29/25
[2025-07-29] MEDS: 0.9% Saline Lock 10 ML Syringe IV (17:14)
== END 2025-07-29 18:42 | disposition home or self-care (01) | DRG 291 ==
LOC: ED 10:13 → PCU 10:19
PROVIDERS: Admitting Provider Internal Medicine; Emergency Provider Emergency Medicine; PCP Internal Medicine
DX: I13.0 Hypertensive heart and chronic kidney disease with heart failure and stage 1 through stage 4 chronic kidney disease, or unspecified chronic kidney disease (principal); I50.33 Acute on chronic diastolic (congestive) heart failure; N18.4 Chronic kidney disease, stage 4 (severe); D63.1 Anemia in chronic kidney disease; Z95.1 Presence of aortocoronary bypass graft; E11.22 Type 2 diabetes mellitus with diabetic chronic kidney disease; I48.0 Paroxysmal atrial fibrillation; E78.5 Hyperlipidemia, unspecified; Z79.4 Long term (current) use of insulin; I25.10 Atherosclerotic heart disease of native coronary artery without angina pectoris; I25.2 Old myocardial infarction; M10.9 Gout, unspecified; Z79.899 Other long term (current) drug therapy; R09.02 Hypoxemia; Z86.73 Personal history of transient ischemic attack (TIA), and cerebral infarction without residual deficits; Z87.891 Personal history of nicotine dependence; Z95.5 Presence of coronary angioplasty implant and graft; Z79.82 Long term (current) use of aspirin; Z90.49 Acquired absence of other specified parts of digestive tract
CPT/HCPCS: 36415; 71045; 80048; 82962; 83735; 83880; 84100; 85025; 93005; 94668; 99285; A4216; J1938

== ENCOUNTER 2025-09-03 15:00 | Outpatient (RCR) | payer MEDICARE, OTHER, SELFPAY ==
[2020-05-18 06:45] VITALS: BMI 31.1
--- NOTE | 2025-07-10 15:22 | HP.PTEVAL_ITS ---
Patient's Visit Information Visit Information Visit Information: CONCHA WOODWARD is a 89 year old F referred to Physical Therapy by Dr. Jack Mae MD with a diagnosis of weakness. Date of Evaluation: 07/10/25 Physical Therapist: Steven Chakraborty, DPT, OCS, CSCS Visit Plan Frequency: 2-3x /Week Duration: 4-6 Weeks Plan: 2-3x/week for 4-6 for IE HE: walk with wh walker or supervision freequent short bouts Treat with: weight shifting gait exercise for confidence adn Fw weight shift, also LE ,funcitonal strength and core/general strength and progress to HEp with pics. Work on steps and gait challenges. Subjective Subjective: Siobhan. Went down hill due to dehydration and felt weak. Hard to move. has stage 4 kidney disease adn anemia. Did not feel well for a couple weeks and went to ER. Did not find much different but pumped her full of fluids. Oxygen no more now. To hospital for 6 days 3 weeks ago. Went home to [facility] b/c not enough energy to go home alone. [place], no cane no walker prior. [facility] house is smaller. Still doesn't feel the best and feels weak. Not doing any exercises at home. Sits alot. Watches TV. alot. Moves now and then. Not leaving house much. Used to drive. and to [facility] [address]. used to go to [employer] adn to the store but not lately. Basic ADls : dress with only help from dtr but can do it herself. Bathroom I, needs help with shower s it is differnt than her own. Has walk in at home. Objective Objective: Walks with mid guard adn wide DAVID poor FW weight shift, slow and small steps but no AD. Very careful and hesitant. Recommended walker. Trasnfer without UE I but lacks FW weight shift until cued. Steps are rciprocal with two railings pulling weeight up steps due to lack of FW weight shift more than strength. LE AROM WFL, UE AROM WFL but flexion 120 B. reflexes 2/3 patella dn achills B LE Sensation LE WNL to gross light touch B. reciprocal toe adn heel tap is min deficits. Able to heel raise and toe raise holding on only. Balance/Special Test Scores Functional Gait Assessment Score: 19 % Disability: 36.6700 CATSIB Score (Max score 120 seconds): 80 Lower Extremity Functional Score: 33 TUG Test Time Seconds: 18 30 Second Chair Rise Test Seconds: 8 Goals Goal 1:: I apporpriate HEP for LE and general strength via HEP to minimize future problems. Goal Time Frame: 4-6 Weeks Goal 2:: Walk with FGA 24/30 and arms swinging freely into adn out of PT. Goal Time Frame: 4-6 Weeks Goal 3:: steps reciprocal with one rail with out needing to pull with UE. Goal Time Frame: 4-6 Weeks Goal 4:: LEFS score 50 Goal Time Frame: 4-6 Weeks Goal 5:: 30 sSTS 11 Goal Time Frame: 4-6 Weeks Rehabilitation Potential Physical Therapy Diagnosis: weakness and poor weight shift effecting funcitonal mobility and I Rehabilitation Potential: Fair Anticipated Interventions Patient/Client Instruction: Educate patient on: Condition and Plan of Care For the Purpose of:: To improve nutrient delivery to tissue, To improve muscle performance and motor function, To increase tolerance to activity/condition/position, To improve ability of physical actions for home/community/work/leisure, To improve gait and locomotor functions and To improve safety Therapeutic Exercise to Include: Strength training, Balance training, Postural training, Gait and locomotor training, Passive ROM and Active ROM For the Purpose of:: To improve muscle performance and motor function, To increase tolerance to activity/condition/position, To improve ability of physical actions for home/community/work/leisure and To improve gait and locomotor functions Text: Thank you for the opportunity to evaluate your patient. For Medicare and Medicare HMO plans, please review the plan of care and approve it. It will need to be FAXED BACK to us at [phone] for Medicare purposes. For Medicare only, by signing this I certify the plan of care. Please let me know if there are questions or concerns regarding this plan of care. Physician Signature: Date:
--- NOTE | 2025-09-03 15:53 | HP.PTDCSUM ---
Discharge Summary D/C summary: It has been my pleasure to treat CONCHA WOODWARD referred by Dr. Jack Mae MD, with the diagnosis of weakness for a total of 13 visit(s). Discharge Date: 09/03/25 Please see the following information for a summary of their discharge status. Subjective Subjective: Going the right way. I can walk better and safr. i am doing mor xercises and walking at home. has not gotten back to a lot of activity. Wants to get back in and get on the [employer]. Watching a lot of TV. Doing exercises at home daily. Has been living at homee on own for last week. Started driving last week. No problems going to [facility]odox last two Sundays. not using AD. No falls and feels steady. Feels ready to get back on the [place]. Overall Improvement % Improvement: 100 Objective Objective/Function: + 1 30 SSTS, +4 on FGA overall and doing well. back living at home adn driving and doing well. not avoiding any activities that she wants to do after she gets back to [employer]. Goals Goal 1:: I apporpriate HEP for LE and general strength via HEP to minimize future problems. Goal Progress: sink exercises, NUSTEP Goal 2:: Walk with FGA 24/30 and arms swinging freely into adn out of PT. Goal Progress: Progressing Goal 3:: steps reciprocal with one rail with out needing to pull with UE. Goal Progress: pulling Goal 4:: LEFS score 50 Goal Progress: Progressing Goal 5:: 30 sSTS 11 Goal Progress: Goal Met Plan Plan: d/c to HEP D/C Information d/c sentence: If there are questions or concerns regarding this patient's physical therapy, please feel free to call me at [phone]. Thank you for the referral of this patient. Sincerely, Steven Chakraborty, DPT, OCS, CSCS Balance/Gait/Functional tests Balance/Special Test Scores Functional Gait Assessment Score: 23 % Disability: 23.3400 CATSIB Score (Max score 120 seconds): 80 Lower Extremity Functional Score: 42 TUG Test Time Seconds: 18 Tug Test: <20 sec.=mostly independent 30 Second Chair Rise Test Seconds: 11 Improvement % Improvement: 100
== END 2025-09-03 19:00 | disposition home or self-care (01) ==
LOC: PT 15:00
PROVIDERS: PCP Internal Medicine; Referring Provider Family Medicine; Visit Provider Family Medicine
DX: R53.1 Weakness (principal); E86.0 Dehydration
CPT/HCPCS: 97110; 97162; 97164; 97530

== ENCOUNTER 2025-09-05 17:13 | Inpatient (IN) | payer MEDICARE, OTHER, SELFPAY ==
[2020-05-18 06:45] VITALS: BMI 31.1
[2025-09-05 17:13] VITALS: BP 178/71; PULSE 77; RESP 16; TEMP 36.7; O2SAT 98; BMI 31.8
--- NOTE | 2025-09-05 17:21 | RAD_ITS ---
PROCEDURE: RAD/Chest 1 View (Portable)
--- NOTE | 2025-09-05 17:21 | EKG12_ITS ---
Test Reason : FALL
--- NOTE | 2025-09-05 17:23 | EX.ED.DYSGE1 ---
HPI History of Present Illness Chief Complaint: Lower Extremity Injury Detail of Chief Complaint: Injury left hip due to fall Informant: patient Onset/Context/Timing Onset: Today and Hours Context: Sudden Onset Timing: Continuous Quality: Pain-free after fentanyl administered by EMS Location: Left hip Current Severity: Gone Maximum Severity: Severe Worsened by: Attempt at movement Relieved by: Fentanyl Associated Symptoms Associated Symptoms: Inability to ambulate after fall Narrative Narrative: Patient 89-year-old woman. She has history of hypertension, diabetes, ischemic cardiomyopathy. 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 Patient states she caught her foot on the leg of the coffee table. She fell. She was unable to get up. She had left hip pain. She arrived by ambulance. She states she is in no pain. She received medicine from the paramedics. Based on her allergies and after reviewing their records she received fentanyl. She has allergy of codeine and morphine. They are not true allergy as they are adverse reactions i.e. nausea vomiting Patient denies head pain, head trauma or neck pain. She denies chest pain, pressure, tightness or heaviness. She denies shortness of breath. She denies pain with breathing. She denies upper or lower back pain. She denies abdominal pain. Prior similar symptoms: No Recent Illness/Hospitalization: No [facility] Medical History Chronic kidney disease Pulmonary hypertension, unspecified 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) heart failure with preserved ejection fraction Kidney disease Stroke/cerebrovascular accident Atherosclerosis of coronary artery of [place] heart without angina pectoris Bilateral renal cysts STEMI (ST elevation myocardial infarction) Acute renal failure superimposed on stage 3 chronic kidney disease Paroxysmal atrial fibrillation with RVR Carotid stenosis, right Decubitus ulcer, stage II Thrombocytopenia Acute blood loss anemia Chronic renal failure, stage 3 (moderate) Benign paroxysmal positional vertigo Mild atrial enlargement, left Nonrheumatic mitral valve regurgitation Internal hemorrhoids Diverticulosis Ischemic cardiomyopathy Hypertension Diabetes Physical debility Constipation due to pain medication Gout Basal ganglia infarction Intracranial meningioma Type II diabetes mellitus Benign hypertension Home Medications ?Medication ?Instructions ?Recorded ?Last Taken ?Type aspirin 81 mg chewable tablet 81 mg PO DAILY heart 01/17/20 07/26/25 History calcium carbonate-vitamin D3 600 1 ea PO DAILY bones 01/17/20 07/26/25 History mg-125 unit tablet propylene glycol 0.6 % eye drops 1 drp ophthalmic (eye) QHS Dry Eyes 06/28/20 07/26/25 History (Systane Balance) insulin aspart U-100 100 unit/mL 7 unit subcut QAC dm 04/30/25 Unknown History (3 mL) subcutaneous pen rosuvastatin 5 mg tablet 5 mg PO QDAY 04/30/25 07/26/25 History insulin glargine-yfgn 100 unit/mL 14 unit subcut QHS 06/14/25 Unknown History (3 mL) subcutaneous pen carvedilol 12.5 mg tablet (Coreg) 12.5 mg PO BID #60 tabs 07/02/25 07/26/25 Rx furosemide 40 mg tablet 40 mg PO DAILY edema #30 tabs 07/29/25 Unknown Rx Prevagen 1 tab PO 1XD 08/05/25 Unknown History allopurinol 100 mg tablet 100 mg PO DAILYCM gout 08/05/25 Unknown History amlodipine 5 mg tablet 5 mg PO QDAY 08/05/25 Unknown History ferrous sulfate 325 mg (65 mg 325 mg PO BIDCM 09/05/25 Unknown History iron) tablet (FeroSul) Allergy/AdvReac Type Severity Reaction Status Date / Time codeine AdvReac Nausea/Vom/ Verified 08/05/25 14:20 Diarrhea morphine AdvReac Nausea/Vom/ Verified 08/05/25 14:20 Diarrhea Family History Aunt Breast cancer Mother Heart disease Father Heart disease Surgical History History of cholecystectomy History of coronary artery bypass graft H/O angioplasty History of left heart catheterization tubal Social History number of children: 2 current occupational status: retired Smoking Status: Former smoker alcohol intake: never substance use type: does not use diet: diabetic caffeine: Yes Type: coffee Number of servings: 1 seatbelt use: always do you feel safe at home: Yes additional social history: 2 children adopted ROS ROS ED Constitutional Constitutional ED: Denies chills, fever(s) or subjective Eyes Eyes: Denies change in vision ENT ENT ED: Denies rhinorrhea Cardiovascular Cardiovascular: Denies chest pain or palpitations Respiratory/Chest Respiratory/Chest: Denies cough, dyspnea or dyspnea on exertion Gastrointestinal Gastrointestinal: Denies abdominal pain, nausea or vomiting Genitourinary Genitourinary ED: Denies dysuria, hematuria or urinary frequency Musculoskeletal Musculoskeletal: Denies arthralgias or myalgias Integumentary Denies Abrasions Neurologic Neurologic: Denies headache(s), paresthesias or weakness Hematologic/Lymphatic Hematologic/Lymphatic: Reports systems reviewed and no addt'l complaints, except as documented EXAM Physical Exam Const Vital Signs: 09/05/25 17:13 09/05/25 18:13 Temperature 98.1 F Temperature Source Oral Pulse Rate 77 71 Respiratory Rate 16 12 Blood Pressure 178/71 H 146/84 H Blood Pressure Mean 106 104 Pulse Ox 98 100 Oxygen Delivery Method Room Air Nasal Cannula Oxygen Flow Rate (L/min) 2 Positive well nourished and well developed Constitutional Narrative: Pleasant elderly woman. Blood pressure is elevated 178/71. General Appearance ED: well developed, NAD and pallor HEENT Reports moist mucous membranes HEENT Narrative: Head is atraumatic normocephalic. Ears are normal. Nares are patent for posterior pharynx is normal. Negative for tenderness Eyes PERRL and EOMs intact bilaterally General Eye ED: Negative for pale conjunctiva or scleral icterus Neck no lymphadenopathy and no JVD Resp normal respiratory effort and clear to auscultation bilaterally Cardio regular rate, regular rhythm, S1 normal heart sound, S2 normal heart sound and no murmurs GI normal to inspection, nondistended, normoactive bowel sounds, non-tender, non-distended and no masses; Negative for hepatosplenomegaly Narrative: There is no tenderness of the pelvis i.e. iliac wings, pubic symphysis or right or left ischial tuberosity. Back/Spine no CVA tenderness Extremity Extremity Narrative: Left lower extremity is shortened and externally rotated. There is no vascular compromise. Neuro oriented x3, CN's II-XII intact bilaterally and no sensory deficits noted Sensorium / Orientation: alert Psych mental status grossly normal Skin no rashes or lesions noted, no wounds and skin turgor normal General Skin Exam: pallor; Negative for jaundice MDM MDM MDM Narrative Medical decision making narrative: Clinically patient has a fractured hip. Will obtain imaging to determine if this is a femoral neck versus intertrochanteric. Will obtain chest x-ray for preoperative clearance as well as EKG appropriate blood work and type and screen. Once images have been completed and reviewed by me will contact orthopedics. She is not seeing an orthopedist in the past. Therefore we will refer to Dr. Westley Watts who is on-call. History & Record Review Additional record(s) reviewed:: Prior inpatient record (Patient was admitted this past July for congestive heart failure. She has a preserved ejection fraction.), Prior ED visit and Prior labs Lab Data Attestation: I reviewed the patient's lab results. Lab results narrative: CBC reveals mild anemia. Her H&H is improved from prior. Basic metabolic panel was elevated BUN/creatinine of 58 and 2.19 with an estimated GFR of 21, this is patient's baseline. Glucose is elevated to 28 with a normal CO2 anion gap. Electrolytes are normal. Labs: Laboratory Results - last 24 hr 09/05/25 17:32 WBC 11.0 RBC 3.54 L Hgb 10.3 L Hct 31.2 L MCV 88.1 MCH 29.1 MCHC 33.0 RDW Std Deviation 48.4 H RDW Coeff of [place]an 14.9 H Plt Count 257 MPV 11.1 Immature Gran % (Auto) 0.500 Neut % (Auto) 74.3 H Lymph % (Auto) 17.3 L [place] % (Auto) 6.4 Eos % (Auto) 1.0 Baso % (Auto) 0.5 Absolute Neuts (auto) 8.2 H Absolute Lymphs (auto) 1.90 Nucleated RBC % 0 Sodium 137 Potassium 3.9 Chloride 102 Carbon Dioxide 22.3 Anion Gap 13 BUN 58 H Creatinine 2.19 H Estim Creat Clear Calc 17.27 L Est GFR (MDRD) Non-Af 21 L BUN/Creatinine Ratio 26.6 H Glucose 228 H Calcium 8.8 NT pro BNP II 4281 H Blood Type Cancelled Antibody Screen Cancelled Radiography Chest X-Ray - ED: 1 View (Single view chest x-ray is slightly rotated. There are sternotomy wires noted. She has mild cardiomegaly. There is no infiltrate, effusion or evidence of CHF. There is chronic changes noted of the osseous structures. There is entirely reviewed interpreted by me at 1812.), 2 View (AP and lateral views of the femur was obtained. There fracture below the lesser and greater trochanter. This probably represents a Sab troches fracture. nausea and vomiting x 1 prior to arrival) and Read by ED Physician (Three-view x-ray of the left hip reveals a displaced left intertrochanteric fracture. There is arthritic changes of the left and right hip joint. There is no evidence of fracture of the pelvis. This independently reviewed interpreted by me at 1813.) EKG Initial EKG: Attestation: I personally reviewed and interpreted this EKG as follows: Interpretation: Sinus Rhythm (Rate is 73. There is evidence of right bundle branch block and probable left anterior fascicular block. NE interval is 204 ms. QS duration is prolonged at 136 ms. QT durations 484 with a QTc of 533 which is prolonged. There is evidence of LVH as well. There is no acute ischemic changes noted.) Management Discussion w/another healthcare provider: Environmental Monitoring Technician (Spoke with Dr. Watts. He requested a femur x-ray as well.) Discharge Plan Dx/Rx/DC Orders Clinical Impression: Displaced subtrochanteric fracture of left femur, Inability to ambulate due to hip, Chronic renal failure, stage 3 (moderate), Ischemic cardiomyopathy, Benign hypertension, (HFpEF) heart failure with preserved ejection fraction, Anemia associated with chronic renal failure, Pulmonary hypertension, unspecified Disposition Disposition: Acute Care [facility]
--- NOTE | 2025-09-05 17:50 | RAD_ITS ---
PROCEDURE: RAD/HIP, UNI W/ Pelvis 2-3 Views
[2025-09-05 17:55] LABS: Hematocrit 31.2 % (37-47); Hemoglobin 10.3 g/dL (12.0-15.0); Immature Granulocytes Count 0.050 X10^3/uL (0.0-0.0); Mean Corp Hgb Conc 33.0 g/dL (32-36); Mean Corpuscular Volume 88.1 fL (81-99); Mean Platelet Vol. 11.1 fl (6.2-12.0); NRBC Flagged by Analyzer 0 % (0-5); Platelet Count 257 K/mm3 (150-450); RBC Distribution Width CV 14.9 % (11.6-14.6); RBC Distribution Width SD 48.4 fl (35.1-43.9); Red Blood Count 3.54 M/mm3 (4.2-5.4); White Blood Count 11.0 K/mm3 (4.4-11.0)
[2025-09-05 18:06] LABS: Anion Gap 13 (5-15); BUN 58 mg/dL (4-19); BUN/Creat Ratio 26.6 RATIO (10-20); Calcium,Total 8.8 mg/dL (7.6-11.0); Carbon Dioxide 22.3 mmol/L (21.0-32.0); Chloride 102 mmol/L (98-108); Estimated Creatinine Clearance 17.27 ml/min (50-250); Glucose 228 mg/dL (70-99); Potassium 3.9 mmol/L (3.3-5.1)
[2025-09-05 18:13] VITALS: BP 146/84; PULSE 71; RESP 12; O2SAT 100
--- NOTE | 2025-09-05 18:20 | RAD_ITS ---
PROCEDURE: RAD/Femur Min 2 Views
--- NOTE | 2025-09-05 18:32 | PCM.HP.STD ---
HPI - General General Date of Admission: 09/05/25 Date of Service: 09/05/25 Chief Complaint: Fall, L hip pain HPI Narrative The patient is an 89 y/o F w/ PMHx: HFrecoveredEF/Ischemic cardiomyopathy, HTN, HLD, Chronic normocytic anemia/AOCD, CKD stage IV per GFR trending although previously stage III reported in the chart but per review has been GFR consistent with stage IV for some time, Hx CVA (basal ganglia infarction), CAD s/p CABG and PCI, Gout, Obesity, Diabetes mellitus type II who presents to the [facility] ED on 09/05/25 with history of mechanical fall unfortunately landing on her left hip reporting that she caught her foot while walking on the coffee table with severe 10-10 pain prompting EMS call for evaluation. Patient does report she gets notable nausea and emesis with any narcotics. Workup in the ED included T90.1, heart rate 77, BP 178/71, respiratory rate 16, 98% room air with most recent repeat vitals T98.2, heart 71, BP 146/84, respiratory rate 12, 100% on room air, CBC with WBC 11, hemoglobin 10.3, MCV 88.1, platelet 257 with left shift, BMP with BUN/Cr 58/2.19, GFR 21, glucose 228, chest x-ray with mild cardiomegaly with no significant overload with evidence of previous CABG however final read per radiology pending, plain film of the left hip and pelvis with a acutely displaced left intertrochanteric fracture however final read pending per radiology, EKG with sinus rhythm with right bundle branch block possible left anterior fascicular block with no acute evidence of ischemia. In the ED patient administered Dilaudid 0.5 mg IV x 1. ED did discuss case with orthopedic surgeon Dr. Ruggiero. From review of records patient did have recent cardiology evaluation outpatient 08/05/2025 with no acute concerns at that time. She notes since her discharge from the hospital she has been doing well, has ongoing therapy and has had no orthopnea, increased swelling, dyspnea or chest discomfort. [facility] Medical History Chronic kidney disease Pulmonary hypertension, unspecified 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) heart failure with preserved ejection fraction Kidney disease Stroke/cerebrovascular accident Atherosclerosis of coronary artery of [place] heart without angina pectoris Bilateral renal cysts STEMI (ST elevation myocardial infarction) Acute renal failure superimposed on stage 3 chronic kidney disease Paroxysmal atrial fibrillation with RVR Carotid stenosis, right Decubitus ulcer, stage II Thrombocytopenia Acute blood loss anemia Chronic renal failure, stage 3 (moderate) Benign paroxysmal positional vertigo Mild atrial enlargement, left Nonrheumatic mitral valve regurgitation Internal hemorrhoids Diverticulosis Ischemic cardiomyopathy Hypertension Diabetes Physical debility Constipation due to pain medication Gout Basal ganglia infarction Intracranial meningioma Type II diabetes mellitus Benign hypertension Home Medications ?Medication ?Instructions ?Recorded ?Last Taken ?Type aspirin 81 mg chewable tablet 81 mg PO DAILY heart 01/17/20 07/26/25 History calcium carbonate-vitamin D3 600 1 ea PO DAILY bones 01/17/20 07/26/25 History mg-125 unit tablet propylene glycol 0.6 % eye drops 1 drp ophthalmic (eye) QHS Dry Eyes 06/28/20 07/26/25 History (Systane Balance) insulin aspart U-100 100 unit/mL 7 unit subcut QAC dm 04/30/25 Unknown History (3 mL) subcutaneous pen rosuvastatin 5 mg tablet 5 mg PO QDAY 04/30/25 07/26/25 History insulin glargine-yfgn 100 unit/mL 14 unit subcut QHS 06/14/25 Unknown History (3 mL) subcutaneous pen carvedilol 12.5 mg tablet (Coreg) 12.5 mg PO BID #60 tabs 07/02/25 07/26/25 Rx furosemide 40 mg tablet 40 mg PO DAILY edema #30 tabs 07/29/25 Unknown Rx Prevagen 1 tab PO 1XD 08/05/25 Unknown History allopurinol 100 mg tablet 100 mg PO DAILYCM gout 08/05/25 Unknown History amlodipine 5 mg tablet 5 mg PO QDAY 08/05/25 Unknown History ferrous sulfate 325 mg (65 mg 325 mg PO BIDCM 09/05/25 Unknown History iron) tablet (FeroSul) Allergy/AdvReac Type Severity Reaction Status Date / Time codeine AdvReac Nausea/Vom/ Verified 08/05/25 14:20 Diarrhea morphine AdvReac Nausea/Vom/ Verified 08/05/25 14:20 Diarrhea Family History Aunt Breast cancer Mother Heart disease Father Heart disease Surgical History History of cholecystectomy History of coronary artery bypass graft H/O angioplasty History of left heart catheterization tubal Social History number of children: 2 current occupational status: retired Smoking Status: Former smoker alcohol intake: never substance use type: does not use diet: diabetic caffeine: Yes Type: coffee Number of servings: 1 seatbelt use: always do you feel safe at home: Yes additional social history: 2 children adopted ROS ROS Narrative Admission Review of Systems: CONSTITUTIONAL: No weight loss, fever, chills, + weakness or fatigue. HEENT: Eyes: No visual loss, blurred vision, double vision or yellow sclerae. Ears, Nose, Throat: No hearing loss, sneezing, congestion, runny nose or sore throat. SKIN: No rash or itching, lesions, wounds. CARDIOVASCULAR: No chest pain, chest pressure or chest discomfort, palpitations, edema, orthopnea, syncopal events. RESPIRATORY: No shortness of breath, cough or sputum, wheezing, hemoptysis. GASTROINTESTINAL: No anorexia, nausea, vomiting or diarrhea, abdominal pain, melena, BRBPR. GENITOURINARY: No dysuria, frequency, urgency or retention. NEUROLOGICAL: No headache, dizziness, syncope, paralysis, ataxia, numbness or tingling in the extremities, focal weakness, change in bowel or bladder control, seizure. MUSCULOSKELETAL: + muscle, back pain, joint pain or stiffness. HEMATOLOGIC: + Chronic anemia, easy bleeding/bruising. LYMPHATICS: No enlarged nodes. No history of splenectomy. PSYCHIATRIC: No history of depression or anxiety. ENDOCRINOLOGIC: No reports of sweating, cold or heat intolerance. No polyuria or polydipsia. ALLERGIES: No history of asthma, hives, eczema or rhinitis. Vital Signs Vital Signs Vital Signs: 09/05/25 17:13 Temperature 98.1 F Temperature Source Oral Pulse Rate 77 Respiratory Rate 16 Blood Pressure 178/71 H Blood Pressure Mean 106 Pulse Ox 98 Oxygen Delivery Method Room Air Weight Weight: 173 lb 15.115 oz Body Mass Index (BMI) 31.8 Physical Exam Narrative Physical Examination: General: Awake, alert, oriented x 3 and cooperative, laying in the ED bed, reports pain currently 10 out of 10 in severity, denies any paresthesias. Skin: Normal color, normal turgor, no icterus, no cyanosis except occasional stage ecchymoses, abrasion.. HEENT: AT/NC, EOMI, PERRLA, MMM, no carotid bruits, no markedly elevated JVD noted. Lungs: Diminished, greater bases, appropriate effort, no rales, ronchi or wheezing. Heart: Regular rate and rhythm; no gallop, rub audible. Abdomen: Soft, obese, NTTP, ND, mildly hyperactive BS, no appreciated HSM. Extremities: No cyanosis, no clubbing, no significant distal edema, peripheral pulses intact, status post fall with left hip fracture. Neurological: Patient awake, alert, oriented as noted, cognitive function intact; pupils equally reactive to light and accommodation, cranial nerves grossly normal, moving all 4 extremities except extremely limited movement left lower extremity secondary to pain given fall with left hip fracture, no paresthesias reported, strength severely globally decreased. Psychiatric: Affect appears uncomfortable, no acute evidence of depressive or anxiety feelings. Results Lab / Micro Data 09/05/25 17:32 09/05/25 17:32 Labs: Laboratory Results - last 24 hr 09/05/25 17:32: WBC 11.0, RBC 3.54 L, Hgb 10.3 L, Hct 31.2 L, MCV 88.1, MCH 29.1, MCHC 33.0, RDW Std Deviation 48.4 H, RDW Coeff of [place]an 14.9 H, Plt Count 257, MPV 11.1, Immature Gran % (Auto) 0.500, Neut % (Auto) 74.3 H, Lymph % (Auto) 17.3 L, [place] % (Auto) 6.4, Eos % (Auto) 1.0, Baso % (Auto) 0.5, Absolute Neuts (auto) 8.2 H, Absolute Lymphs (auto) 1.90, Nucleated RBC % 0, Sodium 137, Potassium 3.9, Chloride 102, Carbon Dioxide 22.3, Anion Gap 13, BUN 58 H, Creatinine 2.19 H, Estim Creat Clear Calc 17.27 L, Est GFR (MDRD) Non-Af 21 L, BUN/Creatinine Ratio 26.6 H, Glucose 228 H, Calcium 8.8, Blood Type Cancelled, Antibody Screen Cancelled Assessment & Plan Assessment/Plan (1) Hip fracture: PLAN: Plan The patient is an 89 y/o F w/ PMHx: HFrecoveredEF/Ischemic cardiomyopathy, HTN, HLD, Chronic normocytic anemia/AOCD, CKD stage IV per GFR trending although previously stage III reported in the chart but per review has been GFR consistent with stage IV for some time, Hx CVA (basal ganglia infarction), CAD s/p CABG and PCI, Gout, Obesity, Diabetes mellitus type II who presents to the [facility] ED on 09/05/25 with history of mechanical fall unfortunately landing on her left hip reporting that she caught her foot while walking on the coffee table with severe 10-10 pain prompting EMS call for evaluation. #1. General debility, left hip pain s/p mechanical fall w/ acutely displaced left intertrochanteric fracture: Orthopedic surgery consulted from ED. additional plain films of the lower femur pending per orthopedic surgery discretion. Will admit to MS, maintain NPO after midnight, valadez placement, monitor I/Os, frequent positioning, fall precautions, type and screen already initiated per ED, pain, anti-emetic regimen. Will hold off on any IV fluids given significant overload history and low threshold to pulse dose with IV Lasix if necessary. PT/OT following operative intervention. CM consulted for discharge planning. Per NSQIP patient is moderate to high risk given her underlying cardiac history however she had recent cardiac evaluation with no acute concerns at that time, denies any recent symptoms of orthopnea, dyspnea, increased swelling nor any chest pain, reviewed recent echocardiogram as noted 06/17/2025, EKG obtained with no acute concerns for ischemia at this time, will obtain stat BNP and if this is not significantly elevated then would proceed with operative intervention however if this is elevated or any concerns arise low threshold to involve cardiology with evaluation prior to surgical intervention. #2. HF recovered EF/ischemic cardiomyopathy: As noted at the time of CABG patient had reduced EF down to 30%, this is since recovered with most recent echocardiogram 06/17/2025 with normal LV size, mild LVH, EF 55%, LV systolic function normal, moderate MVI, mild to moderate TBI, PASP 36 mmHg with stage II diastolic dysfunction. Will closely monitor weights to ensure no overload. Will very judiciously use fluids if necessary. Low threshold to use pulse IV Lasix dosing if needed. Will continue patient aspirin, statin, Coreg, Lasix, not on ISABELLA inhibitor/ARB secondary to chronic kidney disease. BNP requested and if this is notably elevated low threshold to obtain cardiology assessment prior to OR but given recent echocardiogram will defer repeat at this time. #3. Chronic Kidney Disease Stage IV per GFR trending: Admission BUN/Cr 58/2.18, GFR 21, baseline renal function primarily 2.1-2.3 although has vacillated, repeat BMP in AM. Encouraged continued follow-up with nephrology as previously arranged. #4. Chronic normocytic anemia/AOCD: Admission hemoglobin 10.3, MCV 88.1, baseline hemoglobin primarily 8-9, most recently 07/25/2025 8.9, current presentation 10.3, will repeat CBC in the morning to further elucidate. #5. CAD: Status post CABG x 4 [facility] with CHAUDHARI to diagonal sequenced to LAD, SVG to OM sequenced RPL with EF at that time reduced down to 30% with presentation in the setting of myocardial infarction in addition to PCI history, will continue aspirin, statin, Coreg, not on ISABELLA/ARB secondary to issues with increasing creatinine previously especially with recent admissions for the last several months secondary to heart failure exacerbation. #6. Diabetes mellitus type II: Hold oral home regimen, continue home insulin regimen, ADA diet, accu checks w/ ISS. #7. Hypertension: Continue home regimen including amlodipine, Coreg, Lasix with low threshold for pulsed dosing IV if necessary, PRN hydralazine. #8. Hyperlipidemia: Will continue patient on statin therapy. #9. Gout: Will continue patient home allopurinol regimen. #10. Obesity: Weight loss and lifestyle changes encouraged. #11. DVT prophylaxis: SCDs given planned intervention as noted. #12. CODE status: Full Code. Charges/Coding Visit Charges Inpatient E&M: 15461 Init Hosp L3
[2025-09-05 18:44] VITALS: BP 146/84; PULSE 71; RESP 12; TEMP 36.8; O2SAT 100
--- NOTE | 2025-09-05 18:48 | CASEMGMT ---
Care Management Face to Face with patient for initial transition planning/care coordination assessment in the ED.? This ad writer introduced self and role at [facility]. Patient alert and oriented. Patient willing to participate in assessment and is able to answer all questions appropriately.? Care providers, pharmacy, and demographics verified. Patient?s daughter Araceli Charles?s and patient?s son Laurent were also present and contributed to the assessment as patient was in such pain. Admitting Diagnosis: Lower Extremity Injury Other diagnosis history: Including but not limited to: Hypertension, diabetes, ischemic cardiomyopathy, atherosclerotic heart disease, hyperlipidemia, pulmonary hypertension, anemia, chronic renal disease, and paroxysmal atrial fibrillation. PCP: Dr. aWrren Specialists: LISA, Sounding Device Operator; ?Dr. Drummond, Fab[employer] Preferred Pharmacy: [facility] Insurance: [facility]; [employer] [place] Prescription Benefit: Yes Living Will/HPOA: Yes, and on file. ?It should be noted that patient?s daughter, Araceli Carlos, identified herself as the HPOA, however in the paperwork that?s scanned into patient?s electronic medical records, it lists patient?s (who is now ) and lists the first alternate agent as patient?s [id number] ([facility]) and second alternate agent as patient?s friend, Christ Marie. Aerial Crop Duster recommends talking with patient in private about this to ensure this is correct and that there is no updated Advanced Care Directives that needs to be acquired. LNOK: Patient is and has a daughter, Araceli Carlos, of [place], and a son Laurent, also of [place]. Living Arrangements: Patient lives alone in a [place]. Patient has a basement with 12 steps which patient stated she is normally able to ambulate. There is 1 step leading in and out of the main door as well as a garage, both of which have railing to hold onto. Transportation: Patient and patient?s daughter. DME: Patient currently has a raised toilet seat, cane, grab bars, and a walker. HHC: Denied. SNF/Rehab: Cardiac Rehab in 2020 and outpatient therapy at [facility] this year. Community Resources: Home Delivered Meals (HDM?s) through [employer] Whe[employer], 1 hot meal Sunday-Sunday. Patient also has an emergency response device pendant (unable to remember the name of the provider) that has cellular GPS. Aerial Crop Duster recommended having current standard device switched out with one with a fall detection sensor which patient and her family were open to. Behavioral Health History: Denied. Patient goals: Patient wishes to discharge home when medically ready. Additional discharge planning assessment needed to determine if rehab is indicated and/or referral for a home health aid. Disposition Plan: admission to acute; RN CM/SW to follow for discharge planning needs that may arise. Leona Holt, DESIGN TECHNOLOGY PROFESSOR, [employer]
[2025-09-05] MEDS: 0.9% Normal Saline (1000mL) 1,000 ML 150 ML IV (18:50)
[2025-09-05] MEDS: HYDROmorphone 0.5 MG/0.5 ML SYRINGE IV (18:50)
[2025-09-05 19:00] VITALS: BP 141/58; PULSE 74; RESP 18; O2SAT 100
--- NOTE | 2025-09-05 19:25 | ED.RN ---
Per verbal order from Dr. Linares, the patient's fluids have been stopped pending the patient's BNP level.
[2025-09-05 19:27] LABS: Pro- Brain NATRIURETIC PEPTIDE 4281 pg/mL (<=1800)
[2025-09-05 20:07] LABS: Magnesium 2.1 mg/dL (1.5-2.2)
[2025-09-05 20:23] VITALS: BMI 28.0
[2025-09-05 20:36] VITALS: BP 170/68; PULSE 72; RESP 18; TEMP 36.4; O2SAT 100
[2025-09-05] MEDS: 0.9% Saline Lock 10 ML Syringe IV ×2 (21:07→22:23)
[2025-09-05] MEDS: fentaNYL 100 MCG/2 ML Ampul 25 MCG IV (22:22)
[2025-09-05] MEDS: Insulin Glargine-YFGN 100 UNIT/ML Pen 14 UNIT SC (23:28)
[2025-09-05] MEDS: MELATONIN 3 MG TABLET PO (23:32)
[2025-09-06] VITALS (21 sets, daily range): BP systolic 136–189; BP diastolic 62–88; PULSE 71–98; RESP 15–18; TEMP 36.1–37.2; O2SAT 96–100
[2025-09-06] MEDS: fentaNYL 100 MCG/2 ML Ampul 25 MCG IV ×3 (06:09→22:00)
[2025-09-06] MEDS: 0.9% Saline Lock 10 ML Syringe IV ×3 (06:10→22:01)
[2025-09-06 07:13] LABS: Hematocrit 30.9 % (37-47); Hemoglobin 10.2 g/dL (12.0-15.0); Immature Granulocytes Count 0.030 X10^3/uL (0.0-0.0); Mean Corp Hgb Conc 33.0 g/dL (32-36); Mean Corpuscular Volume 88.5 fL (81-99); Mean Platelet Vol. 11.2 fl (6.2-12.0); NRBC Flagged by Analyzer 0 % (0-5); Platelet Count 283 K/mm3 (150-450); RBC Distribution Width CV 14.8 % (11.6-14.6); RBC Distribution Width SD 48.5 fl (35.1-43.9); Red Blood Count 3.49 M/mm3 (4.2-5.4); White Blood Count 9.3 K/mm3 (4.4-11.0)
[2025-09-06 07:23] LABS: Prothrombin Time (Protime)PT. 15.2 SECONDS (11.7-14.9)
[2025-09-06 07:38] LABS: Partial Thromboplast Time 35.2 Seconds (24.1-36.2)
[2025-09-06 07:40] LABS: AST(SGOT) 19 U/L (<=31); Alanine Aminotransfer ALT/SGPT 14 U/L (<=34); Albumin, Serum 3.7 g/dL (3.4-4.8); Alkaline Phosphatase 87 U/L (35-104); Anion Gap 16 (5-15); BUN 53 mg/dL (4-19); BUN/Creat Ratio 23.9 RATIO (10-20); Calcium,Total 9.0 mg/dL (7.6-11.0); Carbon Dioxide 20.8 mmol/L (21.0-32.0); Chloride 101 mmol/L (98-108); Estimated Creatinine Clearance 15.94 ml/min (50-250); Globulin 2.8 g/dL (2.2-4.2); Glucose 329 mg/dL (70-99); Potassium 4.0 mmol/L (3.3-5.1)
--- NOTE | 2025-09-06 08:01 | EKG12_ITS ---
Test Reason : GENERAL
--- NOTE | 2025-09-06 08:04 | PCM.CONS.C ---
Assessment & Plan Assessment/Plan (1) Hip fracture: PLAN: The patient should be at low to moderate risk from a cardiovascular standpoint considering the absence of any acute heart failure or anginal symptoms in addition to recent documentation of normal ventricular size and function with mild pulmonary hypertension by echocardiogram. 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 No signs of fluid overload and I doubt specificity of NT proBNP considering her chronic kidney disease but her body weight has been relatively stable around 153 pounds. (2) CKD (chronic kidney disease) stage 4, GFR 15-29 ml/min: PLAN: Stable at baseline with euvolemic status, creatinine 2.2. Continue to monitor fluid status perioperatively closely to avoid fluid overload (3) Anemia associated with chronic renal failure: PLAN: Would definitely benefit from iron supplements and erythropoietin like products but may need packed RBC transfusion if significant blood loss is noted perioperatively (4) Atherosclerosis of coronary artery of [place] heart without angina pectoris: PLAN: Stable no active angina, continue beta-blockers and statins (5) Ischemic cardiomyopathy: PLAN: LV function recovered completely with mild pulmonary hypertension and currently at baseline body weight with daily use of an oral loop diuretic furosemide which will be continued upon discharge as the patient is aware of her cardiorenal syndrome and monitors her daily weight at home (6) Carotid stenosis, right: PLAN: Asymptomatic continue mon antiplatelet therapy and statins (7) Nonrheumatic mitral valve regurgitation: PLAN: Moderate eccentric by last echocardiographic study 06/24/2025 for which we will continue to monitor regularly on an outpatient basis (8) (HFpEF) heart failure with preserved ejection fraction: PLAN: Chronic, appears euvolemic, annual construction class II. No change in medical therapy as she is on beta-blockers and amlodipine but off ISABELLA inhibitor due to the chronic kidney disease PLAN: Plan Preoperative evaluation and assessment?the patient should be at low to moderate risk from a cardiovascular standpoint considering the absence of acute heart failure or unstable angina or acute dynamic EKG changes. She is at her baseline body weight 155 pounds and appears euvolemic at this time. Recent LVEF assessment within the last few months within normal limits with only mild pulmonary hypertension. She has stable sinus mechanism with no evidence of bradycardia arrhythmia even though she has underlying trifascicular block for which careful rhythm monitoring perioperatively would be recommended especially at her age group watching for any bradycardia arrhythmia. Can hold on her morning beta-blockers and restart in the evening. Also adequate DVT prophylaxis postoperatively would be essential due to the risks of venous thromboembolism HPI Consult Data Date of Consult: 09/06/25 HPI Narrative Reason for Consultation: Preoperative evaluation HPI Narrative: CONCHA WOODWARD, is a 89 F who presents with mechanical fall without any loss of consciousness while her foot was stuck with a coffee table and she fully witnessed the entire event complaining of severe left-sided hip pain and indeed was identified to have left intertrochanteric hip fracture but she appears to be in very good spirits at this time and looking forward to undergo the surgical intervention. She denies any recent chest pain or loss of consciousness with above episode. She denies any recent TIA-like symptoms aware of previous moderate right carotid stenosis. She was evaluated recently in the office on 08/05/2025 where most of her cardiovascular conditions were relatively stable even though she has had 2 admissions over the last year for CHF exacerbation due to underlying chronic kidney disease stage IV and cardiorenal syndrome for which volume status has been challenging but the patient has been able to maintain her body weight 155 pounds She has a history of coronary artery disease requiring bypass surgery. On January 09, 2020 she underwent a four-vessel bypass at [facility]. (CHAUDHARI to diagonal sequenced to LAD, SVG to OM sequenced to RPL). Patient was found to have an EF of around 30% when she had presented with DE. However most recent echocardiographic study performed in June 2025 demonstrated normalization of the LV size and function, moderate left nuclear hypertrophy, stage II diastolic dysfunction, and mild pulmonary hypertension 36 mmHg with moderate eccentric mitral regurgitation. She has CKD stage IV requiring discontinuation of her lisinopril but she continues to be on carvedilol and amlodipine for BP control.. She is also aware of anemia related to chronic kidney disease and her chronically disease stage IV, creatinine baseline 2.2. She denies any acute orthopnea, PND, swelling lower extremities, she is lying supine and in no acute respiratory distress. She has evidence of trifascicular block on her previous twelve-lead EKG with first-degree AV block, right bundle branch block and left anterior fascicular block. [facility] Medical History (Updated 09/06/25 @ 08:[address] Catie Vera MD) Chronic kidney disease Pulmonary hypertension, unspecified 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) heart failure with preserved ejection fraction Kidney disease Stroke/cerebrovascular accident Atherosclerosis of coronary artery of [place] heart without angina pectoris Bilateral renal cysts STEMI (ST elevation myocardial infarction) Acute renal failure superimposed on stage 3 chronic kidney disease Paroxysmal atrial fibrillation with RVR Carotid stenosis, right Decubitus ulcer, stage II Thrombocytopenia Acute blood loss anemia Chronic renal failure, stage 3 (moderate) Benign paroxysmal positional vertigo Mild atrial enlargement, left Nonrheumatic mitral valve regurgitation Internal hemorrhoids Diverticulosis Ischemic cardiomyopathy Hypertension Diabetes Physical debility Constipation due to pain medication Gout Basal ganglia infarction Intracranial meningioma Type II diabetes mellitus Benign hypertension Home Medications ?Medication ?Instructions ?Recorded ?Last Taken ?Type aspirin 81 mg chewable tablet 81 mg PO DAILY heart 01/17/20 07/26/25 History calcium carbonate-vitamin D3 600 1 ea PO DAILY bones 01/17/20 07/26/25 History mg-125 unit tablet propylene glycol 0.6 % eye drops 1 drp ophthalmic (eye) QHS Dry Eyes 06/28/20 07/26/25 History (Systane Balance) insulin aspart U-100 100 unit/mL 7 unit subcut QAC dm 04/30/25 Unknown History (3 mL) subcutaneous pen rosuvastatin 5 mg tablet 5 mg PO QDAY 04/30/25 07/26/25 History insulin glargine-yfgn 100 unit/mL 14 unit subcut QHS 06/14/25 Unknown History (3 mL) subcutaneous pen carvedilol 12.5 mg tablet (Coreg) 12.5 mg PO BID #60 tabs 07/02/25 07/26/25 Rx furosemide 40 mg tablet 40 mg PO DAILY edema #30 tabs 07/29/25 Unknown Rx Prevagen 1 tab PO 1XD 08/05/25 Unknown History allopurinol 100 mg tablet 100 mg PO DAILYCM gout 08/05/25 Unknown History amlodipine 5 mg tablet 5 mg PO QDAY 08/05/25 Unknown History ferrous sulfate 325 mg (65 mg 325 mg PO BIDCM 09/05/25 Unknown History iron) tablet (FeroSul) Allergy/AdvReac Type Severity Reaction Status Date / Time codeine AdvReac Nausea/Vom/ Verified 08/05/25 14:20 Diarrhea morphine AdvReac Nausea/Vom/ Verified 08/05/25 14:20 Diarrhea Family History Aunt Breast cancer Mother Heart disease Father Heart disease Surgical History History of cholecystectomy History of coronary artery bypass graft H/O angioplasty History of left heart catheterization tubal Social History number of children: 2 current occupational status: retired Smoking Status: Former smoker alcohol intake: never substance use type: does not use diet: diabetic caffeine: Yes Type: coffee Number of servings: 1 seatbelt use: always do you feel safe at home: Yes additional social history: 2 children adopted Addt'l Information Additional Findings: Echocardiogram 06/17/2025 Interpretation Summary Normal LV size. Mild eccentric left ventricular hypertrophy. The estimated ejection fraction is 55 %. Left ventricular systolic function is normal. Moderate (2+) eccentric mitral valve insufficiency. Mild to moderate (1-2+) tricuspid valve insufficiency. Pulmonary artery systolic pressure is 36 mmHg. Stage 2 diastolic dysfunction. ECHO/Echo Complete 10/2024: Interpretation Summary Normal LV size. The left ventricular ejection fraction is 50 %. Stage 2 diastolic dysfunction. Structurally normal valves. Echocardiogram 05/2020: The estimated ejection fraction is 55 %. No evidence for diastolic dysfunction. Trivial mitral valve insufficiency. Aortic sclerosis, no stenosis. The study was technically difficult. Contrast injection was performed. ROS ROS Narrative Most of the review of system essentially nonrevealing except the left hip fracture Constitutional Constitutional: Reports systems reviewed and no addt'l complaints, except as documented Eyes Eyes: Reports systems reviewed and no addt'l complaints, except as documented ENT HEENT: Reports systems reviewed and no addt'l complaints, except as documented Cardiovascular Cardiovascular: Reports systems reviewed and no addt'l complaints, except as documented Respiratory/Chest Respiratory/Chest: Reports systems reviewed and no addt'l complaints, except as documented Gastrointestinal Gastrointestinal: Reports systems reviewed and no addt'l complaints, except as documented Genitourinary Genitourinary: Reports systems reviewed and no addt'l complaints, except as documented Musculoskeletal Musculoskeletal: Reports systems reviewed and no addt'l complaints, except as documented Integumentary Integumentary: Reports systems reviewed and no addt'l complaints, except as documented Neurologic Neurologic: Reports systems reviewed and no addt'l complaints, except as documented Psychiatric Psychiatric: Reports systems reviewed and no addt'l complaints, except as documented Endocrine Endocrinology: Reports systems reviewed and no addt'l complaints, except as documented Hematologic/Lymphatic Hematologic/Lymphatic: Reports systems reviewed and no addt'l complaints, except as documented Allergic/Immunologic Allergic/Immunologic: Reports systems reviewed and no addt'l complaints, except as documented Physical Exam Const alert and oriented x3 HEENT normocephalic and head/scalp atraumatic Eyes PERRL and EOMs intact bilaterally Neck full ROM and no lymphadenopathy Carotids: normal carotid upstroke Lymph Lymphatic: no lymphadenopathy noted Chest inspection of chest normal Resp normal respiratory effort Cardio regular rate, regular rhythm and no JVD Cardio Narrative: Subjective #12 6 left upper sternal border Palpation: normal PMI Rate: regular rate Rhythm: regular rhythm GI normal to inspection, nondistended, normoactive bowel sounds no CVA tenderness Extremity normal to inspection Skin no rashes or lesions noted Psych mental status grossly normal Objective Data Vital Signs: Vital Signs Temp Pulse Resp BP Pulse Ox O2 Del Method O2 Flow Rate 98.9 F 71 15 168/64 H 100 Nasal Cannula 2 09/06/25 05:00 09/06/25 07:00 09/06/25 05:00 09/06/25 05:00 09/06/25 05:00 09/06/25 07:00 09/06/25 07:00 Oxygen Flow Rate (L/min) 2 Oxygen Delivery Method Nasal Cannula Weight: 153 lb 8 oz Body Mass Index (BMI) 28.0 Intake & Output: Intake and Output for Last 24 Hours 09/04/25 09/05/25 09/06/25 23:59 23:59 22:59 Intake Total 70 / 70 Output Total 300 / 300 300 / 300 Balance -230 / -230 -300 / -300 Lab / Micro Data Attestation: I reviewed the patient's lab results. 09/06/25 06:35 09/06/25 06:35 Labs: Laboratory Results - last 24 hr 09/05/25 17:32: WBC 11.0, RBC 3.54 L, Hgb 10.3 L, Hct 31.2 L, MCV 88.1, MCH 29.1, MCHC 33.0, RDW Std Deviation 48.4 H, RDW Coeff of Hernan 14.9 H, Plt Count 257, MPV 11.1, Immature Gran % (Auto) 0.500, Neut % (Auto) 74.3 H, Lymph % (Auto) 17.3 L, [place] % (Auto) 6.4, Eos % (Auto) 1.0, Baso % (Auto) 0.5, Absolute Neuts (auto) 8.2 H, Absolute Lymphs (auto) 1.90, Nucleated RBC % 0, Sodium 137, Potassium 3.9, Chloride 102, Carbon Dioxide 22.3, Anion Gap 13, BUN 58 H, Creatinine 2.19 H, Estim Creat Clear Calc 17.27 L, Est GFR (MDRD) Non-Af 21 L, BUN/Creatinine Ratio 26.6 H, Glucose 228 H, Calcium 8.8, Magnesium 2.1, NT pro BNP II 4281 H, Blood Type Cancelled, Antibody Screen Cancelled 09/05/25 19:53: Blood Type O POSITIVE, Antibody Screen NEGATIVE 09/05/25 23:21: POC Glucose 307 H 09/06/25 06:35: WBC 9.3, RBC 3.49 L, Hgb 10.2 L, Hct 30.9 L, MCV 88.5, MCH 29.2, MCHC 33.0, RDW Std Deviation 48.5 H, RDW Coeff of Hernan 14.8 H, Plt Count 283, MPV 11.2, Immature Gran % (Auto) 0.300, Neut % (Auto) 75.0 H, Lymph % (Auto) 18.1 L, [place] % (Auto) 6.4, Eos % (Auto) 0.0, Baso % (Auto) 0.2, Absolute Neuts (auto) 7.0, Absolute Lymphs (auto) 1.69, Nucleated RBC % 0, PT 15.2 H, INR 1.2, APTT 35.2, Sodium 137, Potassium 4.0, Chloride 101, Carbon Dioxide 20.8 L, Anion Gap 16 H, BUN 53 H, Creatinine 2.23 H, Estim Creat Clear Calc 15.94 L, Est GFR (MDRD) Non-Af 21 L, BUN/Creatinine Ratio 23.9 H, Glucose 329 H, Calcium 9.0, Total Bilirubin 0.36, AST 19, ALT 14, Alkaline Phosphatase 87, Total Protein 6.5, Albumin 3.7, Globulin 2.8, Albumin/Globulin Ratio 1.3 09/06/25 06:59: POC Glucose 290 H Cardiology Labs/Tests 09/05/25 17:32: WBC 11.0, RBC 3.54 L, Hgb 10.3 L, Hct 31.2 L, MCV 88.1, MCH 29.1, MCHC 33.0, Plt Count 257, MPV 11.1, Immature Gran % (Auto) 0.500, Neut % (Auto) 74.3 H, Lymph % (Auto) 17.3 L, [place] % (Auto) 6.4, Eos % (Auto) 1.0, Baso % (Auto) 0.5, Absolute Neuts (auto) 8.2 H, Nucleated RBC % 0, Sodium 137, Potassium 3.9, Chloride 102, Carbon Dioxide 22.3, Anion Gap 13, BUN 58 H, Creatinine 2.19 H, Est GFR (MDRD) Non-Af 21 L, BUN/Creatinine Ratio 26.6 H, Glucose 228 H, Calcium 8.8, Magnesium 2.1 09/06/25 06:35: WBC 9.3, RBC 3.49 L, Hgb 10.2 L, Hct 30.9 L, MCV 88.5, MCH 29.2, MCHC 33.0, Plt Count 283, MPV 11.2, Immature Gran % (Auto) 0.300, Neut % (Auto) 75.0 H, Lymph % (Auto) 18.1 L, [place] % (Auto) 6.4, Eos % (Auto) 0.0, Baso % (Auto) 0.2, Absolute Neuts (auto) 7.0, Nucleated RBC % 0, PT 15.2 H, INR 1.2, APTT 35.2, Sodium 137, Potassium 4.0, Chloride 101, Carbon Dioxide 20.8 L, Anion Gap 16 H, BUN 53 H, Creatinine 2.23 H, Est GFR (MDRD) Non-Af 21 L, BUN/Creatinine Ratio 23.9 H, Glucose 329 H, Calcium 9.0, Total Bilirubin 0.36 Rhythm: EKG: Sinus rhythm, first-degree AV block, right bundle branch block, left intrafascicular block, heart rate [address] segment changes Radiography Diagnostic Testing: Radiology Impression Chest X-Ray 09/05/25 17:21 IMPRESSION: No Acute Findings. Reading Location: [id number] Hip/Pelvis X-Ray 09/05/25 17:50 IMPRESSION: Acute proximal left femoral fracture, possibly intertrochanteric or subtrochanteric. A CT is recommended to better evaluate. Reading Location: [facility] Femur X-Ray 09/05/25 18:20 IMPRESSION: Comminuted and mildly displaced fracture of the left proximal femur, likely intertrochanteric or subtrochanteric. Of note, there is lucency in this region, which raises concern for pathologic fracture (though this could be artifactual due to diffuse osteopenia). Reading Location: [id number] Risk Score for UA/STEMI Assesmment (YES = 1) Risk Stratification Applicable: No
--- NOTE | 2025-09-06 08:55 | PCM.PN.HOSP ---
Subjective Subjective Pain is managed, plan for surgery today Objective Data Objective Data Vital Signs: Vital Signs Temp Pulse Resp BP Pulse Ox O2 Del Method O2 Flow Rate 98.9 F 71 15 168/64 H 100 Nasal Cannula 2 09/06/25 05:00 09/06/25 07:00 09/06/25 05:00 09/06/25 05:00 09/06/25 05:00 09/06/25 07:00 09/06/25 07:00 Oxygen Flow Rate (L/min) 2 Oxygen Delivery Method Nasal Cannula Weight: 153 lb 8 oz Body Mass Index (BMI) 28.0 Intake & Output: Intake and Output for Last 24 Hours 09/05/25 09/06/25 09/07/25 03:59 02:59 03:59 Intake Total 70 / 70 Output Total 300 / 300 300 / 300 Balance -230 / -230 -300 / -300 Lab / Micro Data 09/06/25 06:35 09/06/25 06:35 Labs: Laboratory Results - last 24 hr 09/05/25 17:32: WBC 11.0, RBC 3.54 L, Hgb 10.3 L, Hct 31.2 L, MCV 88.1, MCH 29.1, MCHC 33.0, RDW Std Deviation 48.4 H, RDW Coeff of Hernan 14.9 H, Plt Count 257, MPV 11.1, Immature Gran % (Auto) 0.500, Neut % (Auto) 74.3 H, Lymph % (Auto) 17.3 L, [place] % (Auto) 6.4, Eos % (Auto) 1.0, Baso % (Auto) 0.5, Absolute Neuts (auto) 8.2 H, Absolute Lymphs (auto) 1.90, Nucleated RBC % 0, Sodium 137, Potassium 3.9, Chloride 102, Carbon Dioxide 22.3, Anion Gap 13, BUN 58 H, Creatinine 2.19 H, Estim Creat Clear Calc 17.27 L, Est GFR (MDRD) Non-Af 21 L, BUN/Creatinine Ratio 26.6 H, Glucose 228 H, Calcium 8.8, Magnesium 2.1, NT pro BNP II 4281 H, Blood Type Cancelled, Antibody Screen Cancelled 09/05/25 19:53: Blood Type O POSITIVE, Antibody Screen NEGATIVE 09/05/25 23:21: POC Glucose 307 H 09/06/25 06:35: WBC 9.3, RBC 3.49 L, Hgb 10.2 L, Hct 30.9 L, MCV 88.5, MCH 29.2, MCHC 33.0, RDW Std Deviation 48.5 H, RDW Coeff of Hernan 14.8 H, Plt Count 283, MPV 11.2, Immature Gran % (Auto) 0.300, Neut % (Auto) 75.0 H, Lymph % (Auto) 18.1 L, [place] % (Auto) 6.4, Eos % (Auto) 0.0, Baso % (Auto) 0.2, Absolute Neuts (auto) 7.0, Absolute Lymphs (auto) 1.69, Nucleated RBC % 0, PT 15.2 H, INR 1.2, APTT 35.2, Sodium 137, Potassium 4.0, Chloride 101, Carbon Dioxide 20.8 L, Anion Gap 16 H, BUN 53 H, Creatinine 2.23 H, Estim Creat Clear Calc 15.94 L, Est GFR (MDRD) Non-Af 21 L, BUN/Creatinine Ratio 23.9 H, Glucose 329 H, Calcium 9.0, Total Bilirubin 0.36, AST 19, ALT 14, Alkaline Phosphatase 87, Total Protein 6.5, Albumin 3.7, Globulin 2.8, Albumin/Globulin Ratio 1.3 09/06/25 06:59: POC Glucose 290 H Radiography Diagnostic Testing: Radiology Impression Chest X-Ray 09/05/25 17:21 IMPRESSION: No Acute Findings. Reading Location: [facility] Hip/Pelvis X-Ray 09/05/25 17:50 IMPRESSION: Acute proximal left femoral fracture, possibly intertrochanteric or subtrochanteric. A CT is recommended to better evaluate. Reading Location: [facility] Femur X-Ray 09/05/25 18:20 IMPRESSION: Comminuted and mildly displaced fracture of the left proximal femur, likely intertrochanteric or subtrochanteric. Of note, there is lucency in this region, which raises concern for pathologic fracture (though this could be artifactual due to diffuse osteopenia). Reading Location: [facility] Physical Exam Narrative General: Alert, Oriented x3, Cooperative, No apparent distress HEENT: Atraumatic, PERRLA, EOMI, Normocephalic Oral: Moist Mucosa Neck: Supple, No JVD Lungs: Diminished, Normal air movement, No rhonchi, No wheeze, No rales Cardiovascular: Regular rate, Regular Rhythm, Normal S1, Normal S2, No murmurs Abdomen: Soft, Non Tender, Non-Distended, No Hepato-splenomegaly Extremities: No edema, Capillary Refill Less than 3 Seconds Skin: No rashes, No breakdown Musculoskeletal: Tenderness to palpation of right hip Neurological: No focal neurological deficits, moves all extremities, left mobility is impacted by femur fracture Psych/Mental Status: Normal Affect, Appropriate Assessment & Plan Assessment/Plan (1) Hip fracture: PLAN: Plan 1. Left femur fracture status post mechanical fall ? Plan for orthopedic repair today ? She is low to moderate risk for surgery and has been evaluated by cardiology ? PT/OT ? Pain management 2. Chronic systolic and diastolic CHF/essential HTN/HLD/CAD status post CABG ? Her ejection fraction has recovered, she had an echocardiogram 06/17/2025 with an EF of 55% and a PASP of 36 mmHg with stage II diastolic dysfunction ? Continue with oral medications ? Appreciate cardiology's assistance 3. DM2 with CKD 4 ? Insulin ? Accu-Cheks ? Will monitor and make adjustments as necessary ? Renal function appears to be at baseline as is her anemia of chronic disease 4. Gout ? Stable ? Continue with allopurinol DVT: SCDs Charges/Coding Visit Charges Inpatient E&M: 04860 Subs Hosp L2
--- NOTE | 2025-09-06 13:14 | PCM.PRE.AN2 ---
ASA Classification* ASA Classification ASA Classification: 3 and E Assessment & Plan Anesthesia* Anesthesia Assessment Anesthesia Assessment: Discussed sedation and/or anesthesia options, risks, benefits, and alternatives with patient/parents/legal guardian/POA. Questions invited. The patient/parents/legal guardian/POA seems to understand and agrees to proceed with anesthesia plan. Reviewed the physical assessment, medical history, allergy history and patient home medications list prior to surgery/procedure/anesthetic and documented any changes. Performed airway and anesthesia risk assessments. Anesthesia Type Anesthesia Type: General Anesthesia Focused Assessment* Temperature: 98.2 F Pulse Rate: 74 Blood Pressure: 152/62 Respiratory Rate: 16 Pulse Ox: 98 Oxygen Flow Rate (L/min): 2 Airway Assessment Mouth opens: >3 cm Mallampati Score: II Labs Anesthesia Preop lab: CBC WBC, (4.4-11.0) 9.3 K/mm3 Today, 06:35 RBC, (4.2-5.4) 3.49 M/mm3 L Today, 06:35 Hgb, (12.0-15.0) 10.2 g/dL L Today, 06:35 Hct, (37-47) 30.9 % L Today, 06:35 Plt Count, (150-450) 283 K/mm3 Today, 06:35 CHEMISTRY Potassium, (3.3-5.1) 4.0 mmol/L Today, 06:35 Sodium, (133-145) 137 mmol/L Today, 06:35 Magnesium, (1.5-2.2) 2.1 mg/dL 09/05/25, 17:32 Phosphorus, (2.7-4.5) 3.7 mg/dL 07/27/25, 05:26 BUN, (4-19) 53 mg/dL H Today, 06:35 Creatinine, (0.70-1.20) 2.23 mg/dL H Today, 06:35 Glucose, (70-99) 329 mg/dL H Today, 06:35 POC Glucose, (74-106) 172 mg/dL H Today, 11:21 TSH, (0.358-3.74) 1.13 uIU/mL 04/28/14, 12:35 COAG PT, (11.7-14.9) 15.2 SECONDS H Today, 06:35 Pre-Assessment Diagnosis/Proposed Procedure Planned Operative Procedure(s): Gamma Nail Hip fracture Anesthesia History Anesthesia History - soap drier tender: Anesthesia History - soap drier tender Hx Hospitalization Yes 01/03/20 11:18 Any Problems With Anesthesia No 09/06/25 00:19 Cholinesterase deficiency No 09/06/25 00:19 You/Your Family Experience No 09/06/25 00:19 fever (hyperthermia) with Relationship Recent Exposure to Contagious No 09/06/25 00:19 Disease Does patient have nerve No 09/06/25 00:19 stimulator Patient instructed to have device shut off --Does patient have Pacemaker or ICD? When Was Last Pacemaker Check QUESTION #4 FULL TEXT: You/Your Family Experience fever (hyperthermia) with Anesthesia Last Oral Intake Last Oral intake: Last Oral Intake NPO since Meds taken in AM with sips of water? Meds patient instructed to take am of surgery PONV PONV - soap drier tender: PONV - soap drier tender Female HX of Motion Sickness HX of N/V After Surgery Non-Smoker Duration of Surgery greater than 60 minutes Number of Risk Factors PONV Score Height & Weight Height & Weight: Anesthesia: Height & Weight Height 5 ft 2 in 09/05/25 20:23 Weight: 69.626 kg 09/05/25 20:23 Body Mass Index (BMI) 28.0 09/05/25 20:23 Respiratory Assessment Respiratory Assessment - soap drier tender: Respiratory Tract Infection Hx - soap drier tender Hx Respiratory Tract Infection No 09/06/25 00:19 STOP Sleep Apnea STOP Sleep Apnea - soap drier tender: STOP Sleep Apnea - soap drier tender Hx Hypertension Yes 09/06/25 07:35 Hx Sleep Apnea No 09/05/25 20:23 CPAP No 09/05/25 20:23 BIPAP No 09/05/25 20:23 Do you snore loudly (louder No 09/05/25 20:23 than talking or can be heard Do you often feel tired/ No 09/05/25 20:23 fatigued/ sleepy during daytime? Has anyone observed you stop No 09/05/25 20:23 breathing during sleep? STOP Results Negative 09/05/25 20:23 QUESTION #5 FULL TEXT : Do you snore loudly (louder than talking or can be heard through closed doors)? Tobacco Use History Tobacco Use History - soap drier tender: Tobacco Use History - soap drier tender Tobacco Use Smoking Status Former smoker 09/05/25 20:23 Hx Tobacco Use No 09/05/25 20:23 Years Smoking Packs Smoked per Day Smoking Cessation Date was No - quit smoking greater 09/05/25 20:23 within the last 15 years than 15 years ago Hx Smoking Cessation Date 12/06/1952 09/05/25 20:23 Hx Smoking Cessation Yes 09/05/25 20:23 Counseling Hematologic Medial History Hematologic Hx - soap drier tender: Hematologic Medical Hx - hedis nurse Hx of Blood Transfusion No 09/05/25 20:23 Hx of Transfusion in last 3 No 09/05/25 20:23 Months Date of Last Transfusion (if within last 3 months) Ever experience any problems No 09/05/25 20:23 with transfusion(s)? Specify any problems Hx of Preganancy in last 3 No 09/05/25 20:23 Months Nurse Filling Out Transfusion TMELLOR 09/05/25 20:23 & Questions: Date: 09/05/25 09/05/25 20:23 Time: 20:24 09/05/25 20:23 Patient unable to answer at this time (ie. confused, unrespo /Reproduction History /Reproductive History - soap drier tender: /Reproductive Hx- soap drier tender Hx Now Gestational Age (in weeks): EDC: Hx Hx Para Hx Section SAB No 07/13/22 15:19 Active Medications Active Medications: Current Medications Generic Name Dose Route Start Last Admin Trade Name Freq PRN Reason Stop Dose Admin Acetaminophen 650 mg 09/05/25 20:30 09/05/25 23:32 Acetaminophen 325 Mg Tablet PO 650 mg Q4H PRN PRN Administration Fever, pain 1-08/14 Al Hydroxide/Mg Hydroxide 30 ml 09/05/25 20:30 Mag Hydrox/Al Hydrox/Simeth 30 Ml Udc PO Q6H PRN PRN Gastric Burning Albuterol Sulfate 2.5 mg 09/05/25 20:30 Albuterol 2.5 Mg/3 Ml Vial.Neb. INHALATION Q2H PRN PRN Dyspnea, wheezing Allopurinol 100 mg 09/06/25 08:00 09/06/25 08:36 Allopurinol 100 Mg Tablet PO Not Given DAILYCM SÁNCHEZ Amlodipine Besylate 5 mg 09/06/25 10:00 09/06/25 11:15 Amlodipine 5 Mg Tablet PO Not Given DAILY COUNTS INCLUDE 234 BEDS AT THE [facility] Protocol Artificial Tears 1 drp 09/05/25 22:00 09/05/25 22:27 Carboxymethylcellulose Sodium 15 Ml Ophth Drops EACH EYE Not Given QHS COUNTS INCLUDE 234 BEDS AT THE [facility] Aspirin 81 mg 09/06/25 08:00 09/06/25 08:36 Aspirin 81 Mg Tab.Chew PO Not Given BREAKFAST COUNTS INCLUDE 234 BEDS AT THE [facility] Atorvastatin Calcium 10 mg 09/05/25 22:00 09/05/25 22:26 Atorvastatin Calcium 10 Mg Tablet PO Not Given QHS COUNTS INCLUDE 234 BEDS AT THE [facility] Carvedilol 12.5 mg 09/06/25 08:00 09/06/25 08:36 Carvedilol 12.5 Mg Tablet PO [facility] Fentanyl Citrate 25 mcg 09/05/25 21:47 09/06/25 11:36 Fentanyl 100 Mcg/2 Ml Ampul IV 25 mcg Q2H PRN PRN Administration pain 6-10 Ferrous Sulfate 325 mg 09/06/25 08:00 09/06/25 08:36 Ferrous Sulfate 325 Mg Tablet PO [facility] Furosemide 40 mg 09/06/25 10:00 09/06/25 11:15 Furosemide 40 Mg Tablet PO Not Given DAILY COUNTS INCLUDE 234 BEDS AT THE [facility] Protocol Glucagon 1 mg 09/05/25 20:30 Glucagon 1 Mg/Ml Syringe IM X1 PRN Hypoglycemia Protocol Guaifenesin 20 ml 09/05/25 20:30 Guaifenesin 10 Ml Udc (200mg/10ml) PO Q4H PRN PRN COUGH Hydralazine HCl 10 mg 09/05/25 20:30 Hydralazine 20 Mg/Ml Vial IV Q4H PRN PRN SBP > 160 Protocol Sodium Chloride 250 mls @ 15 mls/hr 09/05/25 20:28 IV .[id number] PRN Saline Flush Dextrose 250 mls @ 0 mls/hr 09/05/25 20:30 Dextrose 10%-Water IV .Q0M PRN HYPOGLYCEMIA Protocol As Directed Insulin Glargine 14 unit 09/05/25 22:00 09/05/25 23:28 Insulin Glargine-Yfgn 100 Unit/Ml Pen SC 14 unit QHS COUNTS INCLUDE 234 BEDS AT THE [facility] Administration Insulin Human Lispro 8 unit 09/06/25 08:00 09/06/25 08:43 Insulin Lispro 100 Unit/Ml Insuln.Pen SC 8 u BREAKFAST SÁNCHEZ Administration Insulin Human Lispro 0 unit 09/05/25 22:00 09/06/25 11:23 Insulin Lispro 100 Unit/Ml Insuln.Pen SC 1 units ACHS SÁNCHEZ Administration Protocol Insulin Human Lispro 6 unit 09/06/25 17:00 Insulin Lispro 100 Unit/Ml Insuln.Pen SC DINNER SÁNCHEZ Insulin Human Lispro 3 unit 09/06/25 12:00 09/06/25 12:28 Insulin Lispro 100 Unit/Ml Insuln.Pen SC Not Given LUNCH COUNTS INCLUDE 234 BEDS AT THE [facility] Melatonin 3 mg 09/05/25 20:30 09/05/25 23:32 Melatonin 3 Mg Tablet PO 3 mg QHS PRN PRN Administration INSOMNIA Ondansetron HCl 4 mg 09/05/25 20:30 Ondansetron 4 Mg/2 Ml Vial IV Q8H PRN PRN NAUSEA/VOMITING Oxycodone HCl 2.5 - 5 mg 09/05/25 20:30 Oxycodone 5 Mg Tablet PO Q4H PRN PRN Pain Score 4-10 Senna/Docusate Sodium 2 tablet 09/05/25 22:00 09/06/25 11:15 Senna/Docusate Sodium 1 Tablet PO Not Given BID COUNTS INCLUDE 234 BEDS AT THE [facility] Sodium Chloride 10 - 40 ml 09/05/25 20:28 09/06/25 06:10 0.9% Saline Lock 10 Ml Syringe IV 10 ml UD PRN Administration SALINE FLUSH PFSH Medical History Chronic kidney disease Pulmonary hypertension, unspecified 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) heart failure with preserved ejection fraction Kidney disease Stroke/cerebrovascular accident Atherosclerosis of coronary artery of [place] heart without angina pectoris Bilateral renal cysts STEMI (ST elevation myocardial infarction) Acute renal failure superimposed on stage 3 chronic kidney disease Paroxysmal atrial fibrillation with RVR Carotid stenosis, right Decubitus ulcer, stage II Thrombocytopenia Acute blood loss anemia Chronic renal failure, stage 3 (moderate) Benign paroxysmal positional vertigo Mild atrial enlargement, left Nonrheumatic mitral valve regurgitation Internal hemorrhoids Diverticulosis Ischemic cardiomyopathy Hypertension Diabetes Physical debility Constipation due to pain medication Gout Basal ganglia infarction Intracranial meningioma Type II diabetes mellitus Benign hypertension Home Medications ?Medication ?Instructions ?Recorded ?Last Taken ?Type aspirin 81 mg chewable tablet 81 mg PO DAILY heart 01/17/20 07/26/25 History calcium carbonate-vitamin D3 600 1 ea PO DAILY bones 01/17/20 07/26/25 History mg-125 unit tablet propylene glycol 0.6 % eye drops 1 drp ophthalmic (eye) QHS Dry Eyes 06/28/20 07/26/25 History (Systane Balance) insulin aspart U-100 100 unit/mL 7 unit subcut QAC dm 04/30/25 Unknown History (3 mL) subcutaneous pen rosuvastatin 5 mg tablet 5 mg PO QDAY 04/30/25 07/26/25 History insulin glargine-yfgn 100 unit/mL 14 unit subcut QHS 06/14/25 Unknown History (3 mL) subcutaneous pen carvedilol 12.5 mg tablet (Coreg) 12.5 mg PO BID #60 tabs 07/02/25 07/26/25 Rx furosemide 40 mg tablet 40 mg PO DAILY edema #30 tabs 07/29/25 Unknown Rx Prevagen 1 tab PO 1XD 08/05/25 Unknown History allopurinol 100 mg tablet 100 mg PO DAILYCM gout 08/05/25 Unknown History amlodipine 5 mg tablet 5 mg PO QDAY 08/05/25 Unknown History ferrous sulfate 325 mg (65 mg 325 mg PO BIDCM 09/05/25 Unknown History iron) tablet (FeroSul) Allergy/AdvReac Type Severity Reaction Status Date / Time codeine AdvReac Nausea/Vom/ Verified 08/05/25 14:20 Diarrhea morphine AdvReac Nausea/Vom/ Verified 08/05/25 14:20 Diarrhea Family History Aunt Breast cancer Mother Heart disease Father Heart disease Surgical History History of cholecystectomy History of coronary artery bypass graft H/O angioplasty History of left heart catheterization tubal Social History number of children: 2 current occupational status: retired Smoking Status: Former smoker alcohol intake: never substance use type: does not use diet: diabetic caffeine: Yes Type: coffee Number of servings: 1 seatbelt use: always do you feel safe at home: Yes additional social history: 2 children adopted Review of Systems (Anesthesia) ROS Narrative System reviewed and no additional complaints, except as documented.
--- NOTE | 2025-09-06 13:35 | PCM.CONS.GEN ---
Assessment & Plan Assessment/Plan (1) Subtrochanteric fracture of left femur: QUALIFIERS: Encounter type: initial encounter Fracture type: closed Fracture alignment: displaced Qualified Code(s): S72.22XA - Displaced subtrochanteric fracture of left femur, initial encounter for closed fracture PLAN: Plan Status post ground-level fall sustaining left subtrochanteric femur fracture with displacement community ambulator without assistive device Antibiotics on-call to the OR trans examined cassette as well Thorough discussion was had with the patient and her daughter who is her power of attorney general in regards to there is benefits alternatives of surgery including risk of bleeding infection nerve artery tissue damage need for further surgery continued pain hardware failure and expected postoperative course. Proceed with long cephalomedullary fixation of left femur. HPI Consult Data Date of Consult: 09/06/25 HPI Narrative HPI Narrative: CONCHA WOODWARD, is a 89 F who presents after ground-level fall at home she is a community ambulator without assistive device. However she does live alone and does have many steps at home. She denies any other injury or concern. [facility] Medical History Chronic kidney disease Pulmonary hypertension, unspecified 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) heart failure with preserved ejection fraction Kidney disease Stroke/cerebrovascular accident Atherosclerosis of coronary artery of [place] heart without angina pectoris Bilateral renal cysts STEMI (ST elevation myocardial infarction) Acute renal failure superimposed on stage 3 chronic kidney disease Paroxysmal atrial fibrillation with RVR Carotid stenosis, right Decubitus ulcer, stage II Thrombocytopenia Acute blood loss anemia Chronic renal failure, stage 3 (moderate) Benign paroxysmal positional vertigo Mild atrial enlargement, left Nonrheumatic mitral valve regurgitation Internal hemorrhoids Diverticulosis Ischemic cardiomyopathy Hypertension Diabetes Physical debility Constipation due to pain medication Gout Basal ganglia infarction Intracranial meningioma Type II diabetes mellitus Benign hypertension Home Medications ?Medication ?Instructions ?Recorded ?Last Taken ?Type aspirin 81 mg chewable tablet 81 mg PO DAILY heart 01/17/20 07/26/25 History calcium carbonate-vitamin D3 600 1 ea PO DAILY bones 01/17/20 07/26/25 History mg-125 unit tablet propylene glycol 0.6 % eye drops 1 drp ophthalmic (eye) QHS Dry Eyes 06/28/20 07/26/25 History (Systane Balance) insulin aspart U-100 100 unit/mL 7 unit subcut QAC dm 04/30/25 Unknown History (3 mL) subcutaneous pen rosuvastatin 5 mg tablet 5 mg PO QDAY 04/30/25 07/26/25 History insulin glargine-yfgn 100 unit/mL 14 unit subcut QHS 06/14/25 Unknown History (3 mL) subcutaneous pen carvedilol 12.5 mg tablet (Coreg) 12.5 mg PO BID #60 tabs 07/02/25 07/26/25 Rx furosemide 40 mg tablet 40 mg PO DAILY edema #30 tabs 07/29/25 Unknown Rx Prevagen 1 tab PO 1XD 08/05/25 Unknown History allopurinol 100 mg tablet 100 mg PO DAILYCM gout 08/05/25 Unknown History amlodipine 5 mg tablet 5 mg PO QDAY 08/05/25 Unknown History ferrous sulfate 325 mg (65 mg 325 mg PO BIDCM 09/05/25 Unknown History iron) tablet (FeroSul) Allergy/AdvReac Type Severity Reaction Status Date / Time codeine AdvReac Nausea/Vom/ Verified 08/05/25 14:20 Diarrhea morphine AdvReac Nausea/Vom/ Verified 08/05/25 14:20 Diarrhea Family History Aunt Breast cancer Mother Heart disease Father Heart disease Surgical History History of cholecystectomy History of coronary artery bypass graft H/O angioplasty History of left heart catheterization tubal Social History number of children: 2 current occupational status: retired Smoking Status: Former smoker alcohol intake: never substance use type: does not use diet: diabetic caffeine: Yes Type: coffee Number of servings: 1 seatbelt use: always do you feel safe at home: Yes additional social history: 2 children adopted Physical Exam Const alert, oriented x3 and no apparent distress Extremity Extremity Narrative: Left lower extremity is shortened and externally rotated she has palpable but faint pedal pulses she is able to wiggle her toes and ankle she her compartments are soft and compressible there is no open wounds around the hip Lab / Micro Data 09/06/25 06:35 09/06/25 06:35 Labs: Laboratory Results - last 24 hr 09/05/25 17:32: WBC 11.0, RBC 3.54 L, Hgb 10.3 L, Hct 31.2 L, MCV 88.1, MCH 29.1, MCHC 33.0, RDW Std Deviation 48.4 H, RDW Coeff of Hernan 14.9 H, Plt Count 257, MPV 11.1, Immature Gran % (Auto) 0.500, Neut % (Auto) 74.3 H, Lymph % (Auto) 17.3 L, [place] % (Auto) 6.4, Eos % (Auto) 1.0, Baso % (Auto) 0.5, Absolute Neuts (auto) 8.2 H, Absolute Lymphs (auto) 1.90, Nucleated RBC % 0, Sodium 137, Potassium 3.9, Chloride 102, Carbon Dioxide 22.3, Anion Gap 13, BUN 58 H, Creatinine 2.19 H, Estim Creat Clear Calc 17.27 L, Est GFR (MDRD) Non-Af 21 L, BUN/Creatinine Ratio 26.6 H, Glucose 228 H, Calcium 8.8, Magnesium 2.1, NT pro BNP II 4281 H, Blood Type Cancelled, Antibody Screen Cancelled 09/05/25 19:53: Blood Type O POSITIVE, Antibody Screen NEGATIVE 09/05/25 23:21: POC Glucose 307 H 09/06/25 06:35: WBC 9.3, RBC 3.49 L, Hgb 10.2 L, Hct 30.9 L, MCV 88.5, MCH 29.2, MCHC 33.0, RDW Std Deviation 48.5 H, RDW Coeff of [place]an 14.8 H, Plt Count 283, MPV 11.2, Immature Gran % (Auto) 0.300, Neut % (Auto) 75.0 H, Lymph % (Auto) 18.1 L, [place] % (Auto) 6.4, Eos % (Auto) 0.0, Baso % (Auto) 0.2, Absolute Neuts (auto) 7.0, Absolute Lymphs (auto) 1.69, Nucleated RBC % 0, PT 15.2 H, INR 1.2, APTT 35.2, Sodium 137, Potassium 4.0, Chloride 101, Carbon Dioxide 20.8 L, Anion Gap 16 H, BUN 53 H, Creatinine 2.23 H, Estim Creat Clear Calc 15.94 L, Est GFR (MDRD) Non-Af 21 L, BUN/Creatinine Ratio 23.9 H, Glucose 329 H, Calcium 9.0, Total Bilirubin 0.36, AST 19, ALT 14, Alkaline Phosphatase 87, Total Protein 6.5, Albumin 3.7, Globulin 2.8, Albumin/Globulin Ratio 1.3 09/06/25 06:59: POC Glucose 290 H 09/06/25 08:42: POC Glucose 280 H 09/06/25 11:21: POC Glucose 172 H Imaging Radiology Impression Chest X-Ray 09/05/25 17:21 IMPRESSION: No Acute Findings. Reading Location: [facility] Hip/Pelvis X-Ray 09/05/25 17:50 IMPRESSION: Acute proximal left femoral fracture, possibly intertrochanteric or subtrochanteric. A CT is recommended to better evaluate. Reading Location: [facility] Femur X-Ray 09/05/25 18:20 IMPRESSION: Comminuted and mildly displaced fracture of the left proximal femur, likely intertrochanteric or subtrochanteric. Of note, there is lucency in this region, which raises concern for pathologic fracture (though this could be artifactual due to diffuse osteopenia). Reading Location: [id number]
[2025-09-06] MEDS: Lactated Ringers 1,000 ML 15 ML IV (13:55)
[2025-09-06] MEDS: LACTATED RINGERS IV (14:08)
--- NOTE | 2025-09-06 14:10 | RAD_ITS ---
PROCEDURE: RAD/Femur Min 2 Views
[2025-09-06] MEDS: Lidocaine 1% (5 ml sdv) 5 ML Vial 3 ML IV (14:14)
[2025-09-06] MEDS: TRANEXAMIC ACID 1,000 MG in 0.9% Normal Saline (100mL Bag) 100 ML 440 MG IV (14:25)
[2025-09-06] MEDS: TRANEXAMIC ACID 1,000 MG/10 ML ML 1000 MG IV (14:25)
[2025-09-06] MEDS: Cefazolin 1 GM/5 ML Vial 2 GM IV (14:29)
[2025-09-06] MEDS: Cefazolin 2 GM in 0.9% Normal Saline (100mL Bag) 100 ML IV (14:29)
[2025-09-06] MEDS: fentaNYL 100 MCG/2 ML Ampul IV (14:30)
--- NOTE | 2025-09-06 15:40 | OP.PCM_ITS ---
Operative Report (Standard)
--- NOTE | 2025-09-06 15:40 | PCM.OPRPT ---
Operative Report (Standard) Operative Information Date of Procedure: 09/06/25 Pre-Operative Diagnosis: Left femur subtrochanteric fracture Post-Operative Diagnosis: Same Surgery/Procedure Performed: Cephalomedullary fixation long tip cementer: Yes Android Ui Developer: Grace French Tasks completed by human resources assistant: Opening & closing Type of Anesthesia: General RN Documented Start/Stop Times: Operation Date: 09/06/25 14:00 Case Time Anesthesia Start 09/06/25 14:03 Into Room 09/06/25 14:03 Procedure Start 09/06/25 14:34 Procedure End 09/06/25 15:36 Anesthesia End 09/06/25 15:40 Out of Room 09/06/25 15:40 Procedure Start Time: 14:34 Procedure Stop Time: 15:36 Select all DRAINS/GRAFTS/IMPLANTS that apply: Implanted device Implanted device details: Synthes Estimated Blood Loss: 25 Specimen collected: No Description of surgery: Preoperative diagnosis: Left hip subtrochanteric femur fracture with greater trochanteric comminution Postoperative diagnosis: Same Procedure: Cephalo-medullary fixation left femur Implants: Synthes long nail 11 mmx 360, 95 mm helical blade, 16 mm screw Anesthesia: General EBL: 50 Complications: None Condition: Stable to PACU Indication for procedure: 89-year-old female status post ground-level fall sustaining. fracture demonstrated subtrochanteric femur fracture with greater trochanteric comminution, risk benefits and alternatives were reviewed including risk of bleeding infection nerve, artery, bone, tissue damage, blood clot, RSD need for further surgery and continued pain. Procedure: Patient met in the preoperative holding area once again the operative extremity was identified by both patient and physician and was marked. Patient was met by anesthesia and IV was started she was brought back to the to the operating room anesthesia was started. She was then positioned on the fracture table all bony prominences were well-padded. She was then positioned with adduction internal rotation and traction and fluoroscopy was brought in to ensure that an adequate reduction could be performed. Patient was then prepped and draped in usual sterile fashion and timeout was called to ensure the proper patient procedure and extremity were being contemplated. Fluoroscopy was used to macarena the tip of the greater trochanter and a 3 fingerbreadth incision was made 2 finger breaths proximal to the tip of the greater trochanter. Was carried carried down through the skin and subcutaneous tissue as well as the gluteal fascia. A guide pin was then inserted through the tip of the greater trochanter directed towards the level of lesser trochanter this was checked in both AP and lateral projections. An opening reamer was performed. A guide pin was bent and placed down the femoral canal to the level of the superior patella then measured this and placed the corresponding length nail after flexible reamers were used to achieve cortical chatter and achieving 1.5 mm greater than the nail was chosen . following this was the insertion of the nail the appropriate height jig was used and a triple trocar sleeve was advanced to the skin and a stab incision was made at the trocar was inserted to the level of the bone and a guidepin was placed into the femoral neck and head checked on both AP and lateral projections. This was then measured and appropriately sized helical blade was inserted the nail was locked proximally to allow dynamic compression, the fracture was compressed and a locking screw was placed distally using perfect tulalip technique. This was then drilled and measured under fluoroscopy and the appropriate size screw was inserted. Final AP and lateral projections were saved to the PACS system of the entire construct. the wounds were thoroughly irrigated the fascia was closed with #1 [id number] Vicryls followed by 2-0 Vicryl in the subcutaneous tissues followed by hoda in the skin. 0.5% Marcaine with epinephrine was injected into the subcutaneous tissues dressing was applied form of Xeroform 4 x 4 ABD and Ioban tape. Patient tolerated procedure well there is no intraoperative complications she was brought back to the PACU in stable condition. Surgical Findings: Comminution Complications Complications: No
--- NOTE | 2025-09-06 15:55 | POSTOP.ANE_ITS ---
Anesthesia: Postop Eval I
--- NOTE | 2025-09-06 15:55 | PCM.POST.ANE ---
Anesthesia: Postop Eval I Current Vital Signs Temperature: 97 F Pulse Rate: 89 Blood Pressure: 189/88 Respiratory Rate: 18 Pulse Ox: 98 Oxygen Delivery Method: Room Air Assessment Airway patent: Yes Spontaneous unlabored respirations: Yes Mental status: Awake nausea: No Vomiting: No Anesthesia Complication: No Fluid Hydration Crystalloid volume administer (ml): 600 Total IV fluid infused: 600 Progress Note Anesthesia document: Postop Eval 1 completed: Yes
--- NOTE | 2025-09-06 15:56 | POSTOPAN2_ITS ---
Anesthesia Postop Eval I Sum
--- NOTE | 2025-09-06 15:56 | PCM.POSTANE2 ---
Anesthesia Postop Eval I Sum Postop Eval Completion status Anesthesia document: Postop Eval 1 completed: Yes Anesthesia Postop Eval I Summary Anesthesia Postop Eval I Summary: Anesthesia Postop Eval I: Assessment Summary Airway patent Yes 09/06/25 15:56 Spontaneous unlabored Yes 09/06/25 15:56 respirations Mental status Awake 09/06/25 15:56 nausea No 09/06/25 15:56 Vomiting No 09/06/25 15:56 Anesthesia Postop Eval I: Fluid Summary Crystalloid volume administer 600 09/06/25 15:56 (ml) Colloids volume administered ( ml) Blood Product volume administered (ml) Total IV fluid infused 600 09/06/25 15:56 Anesthesia Postop Eval I: Summary Notes Anesthesia Complication No 09/06/25 15:56 Anesthesia Complication Comment: Post-operative progress note Anesthesia: Postop Eval II Evaluation Mental status: Awake Pain Level: 3 nausea: No Vomiting: No
--- NOTE | 2025-09-06 15:57 | SUR.PHASEI ---
Dr Waggoner at bedside and removed LMA. Pt christ well and has remained on Rm air
[2025-09-06] MEDS: Cefazolin 1 GM/50 ML BAG IV (19:59)
[2025-09-06] MEDS: Lactated Ringers 1,000 ML 125 ML IV (19:59)
[2025-09-06] MEDS: MELATONIN 3 MG TABLET PO (22:01)
[2025-09-06] MEDS: CARBOXYMETHYLCELLULOSE SODIUM 15 ML OPHTH DROPS 1 DRP EACH EYE (22:02)
[2025-09-06] MEDS: Senna/Docusate Sodium 1 Tablet 2 TABLET PO (22:02)
[2025-09-06] MEDS: Insulin Glargine-YFGN 100 UNIT/ML Pen 14 UNIT SC (22:21)
[2025-09-07] VITALS (7 sets, daily range): BP systolic 125–146; BP diastolic 44–62; PULSE 63–82; RESP 16; TEMP 36.5–36.9; O2SAT 95–98; BMI 28.2
[2025-09-07] MEDS: Lactated Ringers 1,000 ML 125 ML IV (04:20)
[2025-09-07] MEDS: Cefazolin 1 GM/50 ML BAG IV ×2 (04:22→12:08)
[2025-09-07] MEDS: APIXABAN 2.5 MG TABLET (WCH) PO ×2 (05:29→21:40)
[2025-09-07 07:46] LABS: Hematocrit 24.4 % (37-47); Hemoglobin 8.0 g/dL (12.0-15.0); Immature Granulocytes Count 0.050 X10^3/uL (0.0-0.0); Mean Corp Hgb Conc 32.8 g/dL (32-36); Mean Corpuscular Volume 89.1 fL (81-99); Mean Platelet Vol. 11.5 fl (6.2-12.0); NRBC Flagged by Analyzer 0 % (0-5); Platelet Count 211 K/mm3 (150-450); RBC Distribution Width CV 15.1 % (11.6-14.6); RBC Distribution Width SD 49.5 fl (35.1-43.9); Red Blood Count 2.74 M/mm3 (4.2-5.4); White Blood Count 9.7 K/mm3 (4.4-11.0)
[2025-09-07 08:37] LABS: Anion Gap 11 (5-15); BUN 59 mg/dL (4-19); BUN/Creat Ratio 22.8 RATIO (10-20); Calcium,Total 8.2 mg/dL (7.6-11.0); Carbon Dioxide 22.8 mmol/L (21.0-32.0); Chloride 104 mmol/L (98-108); Estimated Creatinine Clearance 13.67 ml/min (50-250); Glucose 281 mg/dL (70-99); Potassium 3.7 mmol/L (3.3-5.1)
--- NOTE | 2025-09-07 08:41 | PCM.PN.HOSP ---
Subjective Subjective Doing well, feels well. Had a bowel movement overnight Objective Data Objective Data Vital Signs: Vital Signs Temp Pulse Resp BP Pulse Ox O2 Del Method O2 Flow Rate 97.8 F 76 16 140/44 H 98 Room Air 2 09/07/25 08:12 09/07/25 08:12 09/07/25 08:12 09/07/25 08:12 09/07/25 08:12 09/07/25 08:12 09/06/25 13:14 Oxygen Flow Rate (L/min) 2 Oxygen Delivery Method Room Air Weight: 153 lb 7.068 oz Body Mass Index (BMI) 28.2 Intake & Output: Intake and Output for Last 24 Hours 09/06/25 09/07/25 09/08/25 02:59 03:59 03:59 Intake Total 70 / 70 1361 / 1361 50 / 50 Output Total 300 / 300 610 / 610 200 / 200 Balance -230 / -230 751 / 751 -150 / -150 Lab / Micro Data 09/07/25 07:08 09/07/25 07:08 Labs: Laboratory Results - last 24 hr 09/06/25 08:42: POC Glucose 280 H 09/06/25 11:21: POC Glucose 172 H 09/06/25 15:48: POC Glucose 131 H 09/06/25 22:19: POC Glucose 252 H 09/07/25 06:06: POC Glucose 285 H 09/07/25 07:08: WBC 9.7, RBC 2.74 L, Hgb 8.0 L, Hct 24.4 L, MCV 89.1, MCH 29.2, MCHC 32.8, RDW Std Deviation 49.5 H, RDW Coeff of Hernan 15.1 H, Plt Count 211, MPV 11.5, Immature Gran % (Auto) 0.500, Neut % (Auto) 68.7, Lymph % (Auto) 20.8, [place] % (Auto) 9.8, Eos % (Auto) 0.0, Baso % (Auto) 0.2, Absolute Neuts (auto) 6.7, Absolute Lymphs (auto) 2.01, Nucleated RBC % 0, Sodium 138, Potassium 3.7, Chloride 104, Carbon Dioxide 22.8, Anion Gap 11, BUN 59 H, Creatinine 2.60 H, Estim Creat Clear Calc 13.67 L, Est GFR (MDRD) Non-Af 17 L, BUN/Creatinine Ratio 22.8 H, Glucose 281 H, Calcium 8.2 Radiography Diagnostic Testing: Radiology Impression Femur X-Ray 09/06/25 14:10 IMPRESSION: Fluoroscopy provided for ORIF left hip fracture. For details of the procedure, see the operative report. Reading Location: [facility] Physical Exam Narrative General: Alert, Oriented x3, Cooperative, No apparent distress HEENT: Atraumatic, PERRLA, EOMI, Normocephalic Oral: Moist Mucosa Neck: Supple, No JVD Lungs: Diminished, Normal air movement, No rhonchi, No wheeze, No rales Cardiovascular: Regular rate, Regular Rhythm, Normal S1, Normal S2, No murmurs Abdomen: Soft, Non Tender, Non-Distended, No Hepato-splenomegaly Extremities: No edema, Capillary Refill Less than 3 Seconds Skin: No rashes, No breakdown, dressing CDI Musculoskeletal: Tenderness to palpation of right hip Neurological: No focal neurological deficits, moves all extremities, left mobility is impacted by femur fracture Psych/Mental Status: Normal Affect, Appropriate Assessment & Plan Assessment/Plan (1) Hip fracture: PLAN: Plan 1. Left femur fracture status post mechanical fall status post repair 09/06/2025/postoperative anemia ? Appreciate orthopedic surgery's assistance ? She is low to moderate risk for surgery and has been evaluated by cardiology ? PT/OT ? Pain management 2. Chronic systolic and diastolic CHF/essential HTN/HLD/CAD status post CABG ? Her ejection fraction has recovered, she had an echocardiogram 06/17/2025 with an EF of 55% and a PASP of 36 mmHg with stage II diastolic dysfunction ? Continue with oral medications ? Appreciate cardiology's assistance 3. DM2 with CKD 4 ? Insulin ? Accu-Cheks ? Will monitor and make adjustments as necessary ? Renal function appears to be at baseline as is her anemia of chronic disease 4. Gout ? Stable ? Continue with allopurinol DVT: Eliquis 2.5 mg p.o. twice daily per Ortho Charges/Coding Visit Charges Inpatient E&M: 06602 Subs Hosp L2
--- NOTE | 2025-09-07 08:46 | PCM.PN.CARD ---
Subjective Subjective The patient is resting comfortably in the bed in no apparent distress. She reports that she has no chest discomfort she does not totally remember what her pre-CABG symptoms were light but she feels it was related to chest pain and shortness of breath. She has had no recurrence of those symptoms since her surgery. The patient tolerated her surgical repair of her hip without incident. Telemetry shows that she remains in sinus rhythm with occasional PACs. Objective Data Vital Signs: Vital Signs Temp Pulse Resp BP Pulse Ox O2 Del Method O2 Flow Rate 97.8 F 76 16 140/44 H 98 Room Air 2 09/07/25 08:12 09/07/25 08:12 09/07/25 08:12 09/07/25 08:12 09/07/25 08:12 09/07/25 08:12 09/06/25 13:14 Oxygen Flow Rate (L/min) 2 Oxygen Delivery Method Room Air Weight: 153 lb 7.068 oz Body Mass Index (BMI) 28.2 Intake & Output: Intake and Output for Last 24 Hours 09/05/25 09/06/25 09/07/25 23:59 22:59 23:59 Intake Total 70 / 70 361 / 361 1050 / 1050 Output Total 300 / 300 610 / 610 200 / 200 Balance -230 / -230 -249 / -249 850 / 850 Lab / Micro Data Attestation: I reviewed the patient's lab results. 09/07/25 07:08 09/07/25 07:08 Labs: Laboratory Results - last 24 hr 09/06/25 08:42: POC Glucose 280 H 09/06/25 11:21: POC Glucose 172 H 09/06/25 15:48: POC Glucose 131 H 09/06/25 22:19: POC Glucose 252 H 09/07/25 06:06: POC Glucose 285 H 09/07/25 07:08: WBC 9.7, RBC 2.74 L, Hgb 8.0 L, Hct 24.4 L, MCV 89.1, MCH 29.2, MCHC 32.8, RDW Std Deviation 49.5 H, RDW Coeff of Hernan 15.1 H, Plt Count 211, MPV 11.5, Immature Gran % (Auto) 0.500, Neut % (Auto) 68.7, Lymph % (Auto) 20.8, [place] % (Auto) 9.8, Eos % (Auto) 0.0, Baso % (Auto) 0.2, Absolute Neuts (auto) 6.7, Absolute Lymphs (auto) 2.01, Nucleated RBC % 0, Sodium 138, Potassium 3.7, Chloride 104, Carbon Dioxide 22.8, Anion Gap 11, BUN 59 H, Creatinine 2.60 H, Estim Creat Clear Calc 13.67 L, Est GFR (MDRD) Non-Af 17 L, BUN/Creatinine Ratio 22.8 H, Glucose 281 H, Calcium 8.2 Rhythm Strip Rhythm Strip: Sinus Rhythm Rate: 70 Ectopy: PAC(s) Cardiology Labs/Tests 09/07/25 07:08: WBC 9.7, RBC 2.74 L, Hgb 8.0 L, Hct 24.4 L, MCV 89.1, MCH 29.2, MCHC 32.8, Plt Count 211, MPV 11.5, Immature Gran % (Auto) 0.500, Neut % (Auto) 68.7, Lymph % (Auto) 20.8, [place] % (Auto) 9.8, Eos % (Auto) 0.0, Baso % (Auto) 0.2, Absolute Neuts (auto) 6.7, Nucleated RBC % 0, Sodium 138, Potassium 3.7, Chloride 104, Carbon Dioxide 22.8, Anion Gap 11, BUN 59 H, Creatinine 2.60 H, Est GFR (MDRD) Non-Af 17 L, BUN/Creatinine Ratio 22.8 H, Glucose 281 H, Calcium 8.2 Rhythm: EKG: ECHO: Stress Test: Cardiac Cath: PCI: CT Surgery: Holter monitor: EPS: PPM: CXR: Chest CT Scan: Radiography Diagnostic Testing: Radiology Impression Femur X-Ray 09/06/25 14:10 IMPRESSION: Fluoroscopy provided for ORIF left hip fracture. For details of the procedure, see the operative report. Reading [facility] Physical Exam Const alert and oriented x3 HEENT normocephalic Eyes EOMs intact bilaterally Neck no JVD Chest inspection of chest normal Resp normal respiratory effort and clear to auscultation bilaterally Cardio Rate: regular rate Rhythm: regular rhythm Heart Sounds: S1 normal and S2 normal; Negative for click, gallop or murmur Extremity no pedal edema Neuro Neuro Narrative: Alert and oriented X3 Psych mental status grossly normal Assessment & Plan Assessment/Plan (1) Subtrochanteric fracture of left femur: QUALIFIERS: Encounter type: initial encounter Fracture alignment: displaced Fracture type: closed Qualified Code(s): S72.22XA - Displaced subtrochanteric fracture of left femur, initial encounter for closed fracture PLAN: Status post successful surgical repair. The patient has been up to the bathroom. (2) (HFpEF) heart failure with preserved ejection fraction: QUALIFIERS: Heart failure chronicity: chronic Qualified Code(s): I50.32 - Chronic diastolic (congestive) heart failure PLAN: Patient denies any signs or symptoms of congestion. She seems to be well-controlled on her current medical therapy. (3) CKD (chronic kidney disease) stage 4, GFR 15-29 ml/min: PLAN: Estimated GFR remained stable at 17. Creatinine is 2.60. (4) History of coronary artery bypass graft: PLAN: Patient status post sequential CHAUDHARI graft to the LAD and diagonal, vein graft to the OM branch of the circumflex and vein graft to the distal right coronary artery. This was done 5 years ago 2019. The patient denies any anginal type symptoms. From a cardiovascular standpoint she appears to be stable and I feel can proceed with rehab as indicated. The patient should keep her November 2025 appointment with the [facility]. PLAN: Plan 1. From a cardiovascular standpoint the patient can proceed with regular activities. 2. The patient should be followed up in the [facility] per previous arranged appointment November 2025 and as needed. Charges/Coding Visit Charges Inpatient E&M: 10026 Subs Hosp L2
[2025-09-07] MEDS: Senna/Docusate Sodium 1 Tablet 2 TABLET PO (09:04)
[2025-09-07] MEDS: Cholecalciferol (VIT D3) 25 MCG TABLET (1,000 UNITS) PO (09:05)
--- NOTE | 2025-09-07 10:03 | PCM.PN.ORT ---
Subjective Subjective Cici is a pleasant 89-year-old female postop day 1 for left trochanteric nail fixation status post femoral Subtrochanteric fracture. Patient had a fall when her foot caught on a coffee table and resulted in hip fracture. Patient is sitting up in bed. States PT attempted to work with her but had to leave. Patient had increased pain upon trying to move her extremities this morning. Last pain medication was approximately 8 hours ago. Reports stiff sensation to nonoperative leg. 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, chronic renal disease, and paroxysmal atrial fibrillation Objective Data Objective Data Vital Signs: Vital Signs Temp Pulse Resp BP Pulse Ox O2 Del Method O2 Flow Rate 97.8 F 76 16 140/44 H 96 Room Air 2 09/07/25 08:12 09/07/25 08:12 09/07/25 08:12 09/07/25 08:12 09/07/25 09:48 09/07/25 09:48 09/06/25 13:14 Oxygen Flow Rate (L/min) 2 Oxygen Delivery Method Room Air Weight: 153 lb 7.068 oz Body Mass Index (BMI) 28.2 Intake & Output: Intake and Output for Last 24 Hours 09/05/25 09/06/25 09/07/25 23:59 22:59 23:59 Intake Total 70 / 70 361 / 361 1050 / 1050 Output Total 300 / 300 610 / 610 200 / 200 Balance -230 / -230 -249 / -249 850 / 850 Lab / Micro Data Attestation: I reviewed the patient's lab results. Lab results narrative: Patient with known anemia of chronic disease, results reviewed with Dr. Watts 09/07/25 07:08 09/07/25 07:08 Labs: Laboratory Results - last 24 hr 09/06/25 08:42: POC Glucose 280 H 09/06/25 11:21: POC Glucose 172 H 09/06/25 15:48: POC Glucose 131 H 09/06/25 22:19: POC Glucose 252 H 09/07/25 06:06: POC Glucose 285 H 09/07/25 07:08: WBC 9.7, RBC 2.74 L, Hgb 8.0 L, Hct 24.4 L, MCV 89.1, MCH 29.2, MCHC 32.8, RDW Std Deviation 49.5 H, RDW Coeff of Hernan 15.1 H, Plt Count 211, MPV 11.5, Immature Gran % (Auto) 0.500, Neut % (Auto) 68.7, Lymph % (Auto) 20.8, [place] % (Auto) 9.8, Eos % (Auto) 0.0, Baso % (Auto) 0.2, Absolute Neuts (auto) 6.7, Absolute Lymphs (auto) 2.01, Nucleated RBC % 0, Sodium 138, Potassium 3.7, Chloride 104, Carbon Dioxide 22.8, Anion Gap 11, BUN 59 H, Creatinine 2.60 H, Estim Creat Clear Calc 13.67 L, Est GFR (MDRD) Non-Af 17 L, BUN/Creatinine Ratio 22.8 H, Glucose 281 H, Calcium 8.2 Radiography Diagnostic Testing: Radiology Impression Femur X-Ray 09/06/25 14:10 IMPRESSION: Fluoroscopy provided for ORIF left hip fracture. For details of the procedure, see the operative report. Reading [facility] Rhythm Strip Rhythm Strip: Sinus Rhythm Rate: 70 Ectopy: PAC(s) Physical Exam General General: Yes no acute distress Neurologic: Yes alert and Yes oriented x3 Psychologic: Yes reasonable and appropriate Left Hip Date of injury: 09/05/25 Date of Surgery: 09/06/25 Skin/Wound: Yes CDI and Yes healing Contralateral Normal: Yes HIP: Dressing to left hip site is clean, dry and intact, no drainage noted, no ecchymosis visible Calves are soft, nontender with negative Homans bilaterally. Patient is wearing SCDs and RADHA hose. Full range of motion of left ankle, partial range of motion of left knee, reports stiffness greater to the right hip and leg. Assessment & Plan Assessment/Plan (1) Status post-operative repair of hip fracture: PLAN: PT/OT to eval and treat. Weightbearing as tolerated with use of walker. Patient would like to transfer to TCU for rehab if able prior to attempting to return home Reviewed use of pain medications for moderate pain for better overall symptom control Encourage attempting range of motion of lower extremity joints while in bed until PT in later today. Reviewed any concerning signs and symptoms to seek evaluation for increased redness or pain to incision site, streaking, drainage, fever, chills or other concerns Patient aware of plan for follow-up in Ortho office in 2 weeks for evaluation and staple removal This document has been transcribed using [employer] dictation software. There may be incorrect words, spelling, and punctuation. (2) Subtrochanteric fracture of left femur: QUALIFIERS: Encounter type: initial encounter Fracture alignment: displaced Fracture type: closed Qualified Code(s): S72.22XA - Displaced subtrochanteric fracture of left femur, initial encounter for closed fracture
--- NOTE | 2025-09-07 12:11 | CHAPLAIN ---
Type of Pastoral Visit _x__ Initial Visit ___ Follow-up Visit ___ On-call Visit ___ General Patient Visit ___ Spiritual Assessment ___ Family Conference ___ Bereavement ___ Rapid Response ___ Code Blue ___ Other (describe below) Pastoral Care Referral From _x__ Patient ___ Family ___ Nurse ___ Physician ___ Jail Guard ___ Bath Mixer ___ Other (describe below) Sacrament/Intervention _x__ Active listening ___ Anointing ___ Mandaen ___ Bereavement ___ Communion ___ Lelo exploration ___ _x__ Life review _x__ Prayer ___ Reconciliation ___ Sacrament of Sick _x__ Supportive presence ___ Wedding ___ Other (describe below) Pastoral Comments patient is known to this template maker and has been seen in previous admissions here; pt speaks of discouragement at her fall and severe break Just after I went home again and was fine and making plans; pt has family and buddhism support; pt reviews past help from the Lord and 'making it through'; pt welcomes presence and prayers for spiritual care
[2025-09-07 12:15] LABS: Hematocrit 25.1 % (37-47); Hemoglobin 8.1 g/dL (12.0-15.0)
[2025-09-07] MEDS: 0.9% Saline Lock 10 ML Syringe IV (13:41)
[2025-09-07] MEDS: Insulin Glargine-YFGN 100 UNIT/ML Pen 14 UNIT SC (21:37)
[2025-09-07] MEDS: CARBOXYMETHYLCELLULOSE SODIUM 15 ML OPHTH DROPS 1 DRP EACH EYE (21:41)
[2025-09-08 02:37] VITALS: BP 148/65; PULSE 72; RESP 14; TEMP 36.6; O2SAT 95
[2025-09-08 06:00] VITALS: BMI 28.2
[2025-09-08 07:11] VITALS: O2SAT 95
[2025-09-08 07:26] LABS: Hematocrit 23.3 % (37-47); Hemoglobin 7.5 g/dL (12.0-15.0); Immature Granulocytes Count 0.040 X10^3/uL (0.0-0.0); Mean Corp Hgb Conc 32.2 g/dL (32-36); Mean Corpuscular Volume 90.3 fL (81-99); Mean Platelet Vol. 11.3 fl (6.2-12.0); NRBC Flagged by Analyzer 0 % (0-5); Platelet Count 220 K/mm3 (150-450); RBC Distribution Width CV 15.0 % (11.6-14.6); RBC Distribution Width SD 49.5 fl (35.1-43.9); Red Blood Count 2.58 M/mm3 (4.2-5.4); White Blood Count 8.9 K/mm3 (4.4-11.0)
[2025-09-08 07:58] VITALS: BP 146/56; PULSE 77; RESP 16; TEMP 36.8; O2SAT 97
[2025-09-08 08:09] LABS: Anion Gap 10 (5-15); BUN 57 mg/dL (4-19); BUN/Creat Ratio 24.2 RATIO (10-20); Calcium,Total 8.6 mg/dL (7.6-11.0); Carbon Dioxide 25.0 mmol/L (21.0-32.0); Chloride 102 mmol/L (98-108); Estimated Creatinine Clearance 15.00 ml/min (50-250); Glucose 160 mg/dL (70-99); Potassium 3.6 mmol/L (3.3-5.1)
--- NOTE | 2025-09-08 08:52 | PCM.PN.HOSP ---
Subjective Subjective Doing well, no issues overnight. Pain is managed. Hemoglobin is little bit low at 7.5 and given her cardiac history we will transfuse 1 unit since she is below 8 Objective Data Objective Data Vital Signs: Vital Signs Temp Pulse Resp BP Pulse Ox O2 Del Method O2 Flow Rate 98.2 F 77 16 146/56 H 97 Room Air 2 09/08/25 07:58 09/08/25 07:58 09/08/25 07:58 09/08/25 07:58 09/08/25 07:58 09/08/25 07:58 09/06/25 13:14 Oxygen Flow Rate (L/min) 2 Oxygen Delivery Method Room Air Weight: 153 lb 7.068 oz Body Mass Index (BMI) 28.2 Intake & Output: Intake and Output for Last 24 Hours 09/07/25 09/08/25 09/09/25 03:59 03:59 03:59 Intake Total 1361 / 1361 1100 / 1100 Output Total 610 / 610 600 / 600 250 / 250 Balance 751 / 751 500 / 500 -250 / -250 Lab / Micro Data 09/08/25 07:02 09/08/25 07:02 Labs: Laboratory Results - last 24 hr 09/07/25 11:59: POC Glucose 191 H 09/07/25 12:09: Hgb 8.1 L, Hct 25.1 L 09/07/25 16:12: POC Glucose 141 H 09/07/25 21:36: POC Glucose 228 H 09/08/25 06:44: POC Glucose 152 H 09/08/25 07:02: WBC 8.9, RBC 2.58 L, Hgb 7.5 L, Hct 23.3 L, MCV 90.3, MCH 29.1, MCHC 32.2, RDW Std Deviation 49.5 H, RDW Coeff of Hernan 15.0 H, Plt Count 220, MPV 11.3, Immature Gran % (Auto) 0.400, Neut % (Auto) 64.7, Lymph % (Auto) 24.4, [place] % (Auto) 9.2, Eos % (Auto) 0.9, Baso % (Auto) 0.4, Absolute Neuts (auto) 5.8, Absolute Lymphs (auto) 2.17, Nucleated RBC % 0, Sodium 137, Potassium 3.6, Chloride 102, Carbon Dioxide 25.0, Anion Gap 10, BUN 57 H, Creatinine 2.37 H, Estim Creat Clear Calc 15.00 L, Est GFR (MDRD) Non-Af 19 L, BUN/Creatinine Ratio 24.2 H, Glucose 160 H, Calcium 8.6 Rhythm Strip Rhythm Strip: Sinus Rhythm Rate: 70 Ectopy: PAC(s) Physical Exam Narrative General: Alert, Oriented x3, Cooperative, No apparent distress HEENT: Atraumatic, PERRLA, EOMI, Normocephalic Oral: Moist Mucosa Neck: Supple, No JVD Lungs: Diminished, Normal air movement, No rhonchi, No wheeze, No rales Cardiovascular: Regular rate, Regular Rhythm, Normal S1, Normal S2, No murmurs Abdomen: Soft, Non Tender, Non-Distended, No Hepato-splenomegaly Extremities: No edema, Capillary Refill Less than 3 Seconds Skin: No rashes, No breakdown, dressing CDI Musculoskeletal: Tenderness to palpation of right hip Neurological: No focal neurological deficits, moves all extremities, left mobility is impacted by femur fracture Psych/Mental Status: Normal Affect, Appropriate Assessment & Plan Assessment/Plan (1) Hip fracture: PLAN: Plan 1. Left femur fracture status post mechanical fall status post repair 09/06/2025/postoperative anemia which is essentially acute blood loss anemia from surgery ? Appreciate orthopedic surgery's assistance ? She is low to moderate risk for surgery and has been evaluated by cardiology ? PT/OT ? Pain management ? Will transfuse 1 unit since she is below 8 and has a cardiac history which is appropriate transfusion strategy 2. Chronic systolic and diastolic CHF/essential HTN/HLD/CAD status post CABG ? Her ejection fraction has recovered, she had an echocardiogram 06/17/2025 with an EF of 55% and a PASP of 36 mmHg with stage II diastolic dysfunction ? Continue with oral medications ? Appreciate cardiology's assistance 3. DM2 with CKD 4 ? Insulin ? Accu-Cheks ? Will monitor and make adjustments as necessary ? Renal function appears to be at baseline as is her anemia of chronic disease 4. Gout ? Stable ? Continue with allopurinol DVT: Eliquis 2.5 mg p.o. twice daily per Ortho Charges/Coding Visit Charges Inpatient E&M: 52998 Subs Hosp L2
--- NOTE | 2025-09-08 09:53 | CASEMGMT ---
Addendum entered by Kayli Roberto 09/08/25 12:31: [facility], pt prevagen will need to be on hold while admitted. RITA PEREZ into pt room, pt aware of this and she is agreeable to holding prevagen. Pt states she has already spoke with her dtr and she denies need for RN CM to contact any one regarding TCU admission this date. Pt is aware that she will transport to TCU after blood products given. Tubed med list and trf to extended care to TCU. Original med list and trf to ext care given to stenographer secretary. Copy of med list placed in chart. Pt nurse aware he may call report once blood products complete. Original Note: RN ANA into pt room, PATROL JUDGE assisted pt up to chair. Pt states she feels she needs more therapy prior to returning home. Pt states she would like [facility]. Provided pt with a list of SNF providers including quality and resource use data and consistent with the patient?s preferred geographic region, medical needs, and insurance network [facility] choices should [facility] not have bed availability. Pt to review list and RITA PEREZ to check back. Referral made to admissions at [facility] TCU.
[2025-09-08] MEDS: APIXABAN 2.5 MG TABLET (WCH) PO (10:10)
[2025-09-08] MEDS: Cholecalciferol (VIT D3) 25 MCG TABLET (1,000 UNITS) PO (10:10)
[2025-09-08 11:27] VITALS: BP 139/51; PULSE 72; RESP 16; TEMP 36.4; O2SAT 96
--- NOTE | 2025-09-08 11:36 | PCM.TXEXTCAR ---
Diet Diet Order/Speech Therapy: INPATIENT Hospital Diet / Speech Therapy Order(s) 09/07/25 07:53 Diet: Carbohydrate Controlled Routine Orders/Code Status Routine Lab Work: CBC and BMP Code Status: Full Code DC O2, CPAP, BIPAP needs Home O2 Discharge instructions: No Wound(s) left outer lower leg: Wound Type: Surgical Incision Therapies Weight Bearing: Weight bearing as tolerated Extremity Affected:: Left Lower Physical Therapy: Eval and Treat Occupational Therapy: Eval and Treat Problem/Diagnosis (1) Hip fracture: Status: Acute Code(s): S72.009A - Fracture of unspecified part of neck of unspecified femur, initial encounter for closed fracture Plan 1. Left femur fracture status post mechanical fall status post repair 09/06/2025/postoperative anemia which is essentially acute blood loss anemia from surgery ? Appreciate orthopedic surgery's assistance ? She is low to moderate risk for surgery and has been evaluated by cardiology ? PT/OT ? Pain management ? Will transfuse 1 unit since she is below 8 and has a cardiac history which is appropriate transfusion strategy 2. Chronic systolic and diastolic CHF/essential HTN/HLD/CAD status post CABG ? Her ejection fraction has recovered, she had an echocardiogram 06/17/2025 with an EF of 55% and a PASP of 36 mmHg with stage II diastolic dysfunction ? Continue with oral medications ? Appreciate cardiology's assistance 3. DM2 with CKD 4 ? Insulin ? Accu-Cheks ? Will monitor and make adjustments as necessary ? Renal function appears to be at baseline as is her anemia of chronic disease 4. Gout ? Stable ? Continue with allopurinol DVT: Eliquis 2.5 mg p.o. twice daily per Ortho Allergies/Procedures Done in Hospital Allergies codeine Adverse Reaction (Verified 08/05/25 14:20) Nausea/Vom/Diarrhea morphine Adverse Reaction (Verified 08/05/25 14:20) Nausea/Vom/Diarrhea Procedures: None Type of Care/Length of Stay Estimated LOS: Convalescent Care Less Than 30 days Type of Care Needed: Skilled Rehab Potential: Good Prognosis: Good Additional Orders/Day of Discharge Day of Discharge: 09/08/25 Discharge Plan Admission Admit Date/Time: 09/05/25 18:33 Attending Provider: Jack Mae Primary Care Provider: Siena Warren Consulting Providers: Catie Vera; White,Stefanie L Discharge Orders/Prescriptions Prescriptions: New Eliquis 5 mg Tablet 2.5 mg PO BID 28 Days Qty: 28 0RF tramadol 25 mg tablet 25 mg PO Q6H PRN (Reason: pain) Qty: 7 0RF Continued Systane Balance 0.6 % drops 1 drp OPHTHALMIC QHS rosuvastatin 5 mg tablet 5 mg PO QDAY carvedilol [Coreg] 12.5 mg tablet 12.5 mg PO BID Qty: 60 6RF Rx Instructions: must administer with a meal/food amlodipine 5 mg tablet 5 mg PO QDAY Prevagen 1 tab PO 1XD allopurinol 100 mg tablet 100 mg PO DAILYCM Patient Comments: GOUT aspirin 81 MG tablet,chewable 81 mg PO DAILY calcium carbonate-vitamin D3 1 EACH tablet 1 ea PO DAILY insulin aspart U-100 100 unit/mL (3 mL) insulin pen 7 unit subcut QAC Rx Instructions: 8 units AM, 3 units, 6 units dinner furosemide 40 mg tablet 40 mg PO DAILY Qty: 30 0RF Rx Instructions: and as needed daily if your weight increases by 2 pounds in 1 day, or 3 pounds in 1 week. ferrous sulfate [FeroSul] 325 mg (65 mg iron) Tablet 325 mg PO BIDCM insulin glargine-yfgn 100 unit/mL (3 mL) insulin pen 14 unit subcut QHS Referrals / Follow Up: Westley Watts DO [Med Staff - Active Staff, Orthopedics] - Within 2 Weeks Siena Warren MD [Primary Care Provider, Internal Medicine] - 09/10/25 10:20 am Disposition Disposition (needs filled in before D/C Order can be placed): [facility]
[2025-09-08 11:42] VITALS: BP 154/51; PULSE 69; RESP 16; TEMP 36.4; O2SAT 96
--- NOTE | 2025-09-08 11:58 | PHA.DC_ITS ---
Pharmacy DC Med Reconciliation
--- NOTE | 2025-09-08 11:58 | PHA.DC.MR.R ---
Pharmacy [place] Med Reconciliation Pharmacy Service has performed discharge medication reconciliation for this patient. The patient's discharge medication list was reviewed for discrepancies and discrepancies were resolved. Medications at Discharge Home Medications aspirin 81 mg chewable tablet 81 mg PO DAILY heart 01/17/20 calcium carbonate-vitamin D3 600 mg-125 unit tablet 1 ea PO DAILY bones 01/17/20 propylene glycol 0.6 % eye drops (Systane Balance) 1 drp ophthalmic (eye) QHS Dry Eyes 06/28/20 insulin aspart U-100 100 unit/mL (3 mL) subcutaneous pen 7 unit subcut QAC dm 04/30/25 rosuvastatin 5 mg tablet 5 mg PO QDAY 04/30/25 insulin glargine-yfgn 100 unit/mL (3 mL) subcutaneous pen 14 unit subcut QHS 06/14/25 carvedilol 12.5 mg tablet (Coreg) 12.5 mg PO BID #60 tabs 07/02/25 furosemide 40 mg tablet 40 mg PO DAILY edema #30 tabs 07/29/25 Prevagen 1 tab PO 1XD 08/05/25 allopurinol 100 mg tablet 100 mg PO DAILYCM gout 08/05/25 amlodipine 5 mg tablet 5 mg PO QDAY 08/05/25 ferrous sulfate 325 mg (65 mg iron) tablet (FeroSul) 325 mg PO BIDCM 09/05/25 apixaban 5 mg tablet (Eliquis) 2.5 mg (1/2 x 5 mg) PO BID 28 days #28 tabs 09/08/25 tramadol 25 mg tablet 25 mg PO Q6H PRN pain #7 tabs 09/08/25
--- NOTE | 2025-09-08 12:32 | PCM.DC.SUM ---
Providers Date of Admission: 09/05/25 Primary Care Physician: Dr. Siena Warren MD Consultations 09/05/25 20:30 Consult: Cardiology Routine Consulting Provider: Catie Vera Reason for Consult: Preoperative evaluation EMERGENT Consult: No MD Notified: Yes Date Notified: 09/05/25 Time Notified: 20:01 Method of Notification: Text Reason For Visit: FALL, HIP FRACTURE Diagnosis Discharge Diagnosis (1) Hip fracture: Status: Acute Code(s): S72.009A - Fracture of unspecified part of neck of unspecified femur, initial encounter for closed fracture Medications at Discharge Home Medications aspirin 81 mg chewable tablet 81 mg PO DAILY heart 01/17/20 calcium carbonate-vitamin D3 600 mg-125 unit tablet 1 ea PO DAILY bones 01/17/20 propylene glycol 0.6 % eye drops (Systane Balance) 1 drp ophthalmic (eye) QHS Dry Eyes 06/28/20 insulin aspart U-100 100 unit/mL (3 mL) subcutaneous pen 7 unit subcut QAC dm 04/30/25 rosuvastatin 5 mg tablet 5 mg PO QDAY 04/30/25 insulin glargine-yfgn 100 unit/mL (3 mL) subcutaneous pen 14 unit subcut QHS 06/14/25 carvedilol 12.5 mg tablet (Coreg) 12.5 mg PO BID #60 tabs 07/02/25 furosemide 40 mg tablet 40 mg PO DAILY edema #30 tabs 07/29/25 Prevagen 1 tab PO 1XD 08/05/25 allopurinol 100 mg tablet 100 mg PO DAILYCM gout 08/05/25 amlodipine 5 mg tablet 5 mg PO QDAY 08/05/25 ferrous sulfate 325 mg (65 mg iron) tablet (FeroSul) 325 mg PO BIDCM 09/05/25 apixaban 5 mg tablet (Eliquis) 2.5 mg (1/2 x 5 mg) PO BID 28 days #28 tabs 09/08/25 tramadol 25 mg tablet 25 mg PO Q6H PRN pain #7 tabs 09/08/25 Hospital Course Operations - (Cephalomedullary fixation long) Procedures None Summary of Care Provided Minutes Spent on Discharge: 34 Hospital Course: Per HPI: The patient is an 89 y/o F w/ PMHx: HFrecoveredEF/Ischemic cardiomyopathy, HTN, HLD, Chronic normocytic anemia/AOCD, CKD stage IV per GFR trending although previously stage III reported in the chart but per review has been GFR consistent with stage IV for some time, Hx CVA (basal ganglia infarction), CAD s/p CABG and PCI, Gout, Obesity, Diabetes mellitus type II who presents to the [facility] ED on 09/05/25 with history of mechanical fall unfortunately landing on her left hip reporting that she caught her foot while walking on the coffee table with severe 10-10 pain prompting EMS call for evaluation. Patient does report she gets notable nausea and emesis with any narcotics. Workup in the ED included T90.1, heart rate 77, BP 178/71, respiratory rate 16, 98% room air with most recent repeat vitals T98.2, heart 71, BP 146/84, respiratory rate 12, 100% on room air, CBC with WBC 11, hemoglobin 10.3, MCV 88.1, platelet 257 with left shift, BMP with BUN/Cr 58/2.19, GFR 21, glucose 228, chest x-ray with mild cardiomegaly with no significant overload with evidence of previous CABG however final read per radiology pending, plain film of the left hip and pelvis with a acutely displaced left intertrochanteric fracture however final read pending per radiology, EKG with sinus rhythm with right bundle branch block possible left anterior fascicular block with no acute evidence of ischemia. In the ED patient administered Dilaudid 0.5 mg IV x 1. ED did discuss case with orthopedic surgeon Dr. Ruggiero. From review of records patient did have recent cardiology evaluation outpatient 08/05/2025 with no acute concerns at that time. She notes since her discharge from the hospital she has been doing well, has ongoing therapy and has had no orthopnea, increased swelling, dyspnea or chest discomfort. Hospital Course: 1. Left femur fracture from a mechanical fall status post repair 09/06/2025/acute postoperative blood loss anemia?89-year-old female presented to the hospital after a left femur fracture. She had surgery on 09/06/2025 and has done well since then. She is on Eliquis 2.5 mg p.o. twice daily for 28 days total for DVT prophylaxis. She did develop acute blood loss anemia postoperatively with a hemoglobin of 7.5 today on the day of discharge. She was transfused 1 unit because of her cardiac history. I do recommend repeat CBC at the transitional care unit with transfusions as indicated. She did request tramadol instead of any narcotics as she does not do well with narcotics in general. I discussed with her the possibility for discharge today she expressed understanding of the risk and benefits of going to the halfway and would like to go today. 2. 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 Her home medications were continued where appropriate Weight / BMI Weight Weight: 153 lb 7.068 oz Body Mass Index (BMI) 28.2 ABG / Lab / Microbiology Data 09/08/25 07:02 09/08/25 07:02 Laboratory: Laboratory Results - last 24 hr 09/05/25 19:53: Crossmatch See Detail 09/07/25 11:59: POC Glucose 191 H 09/07/25 16:12: POC Glucose 141 H 09/07/25 21:36: POC Glucose 228 H 09/08/25 06:44: POC Glucose 152 H 09/08/25 07:02: WBC 8.9, RBC 2.58 L, Hgb 7.5 L, Hct 23.3 L, MCV 90.3, MCH 29.1, MCHC 32.2, RDW Std Deviation 49.5 H, RDW Coeff of [place] 15.0 H, Plt Count 220, MPV 11.3, Immature Gran % (Auto) 0.400, Neut % (Auto) 64.7, Lymph % (Auto) 24.4, [place] % (Auto) 9.2, Eos % (Auto) 0.9, Baso % (Auto) 0.4, Absolute Neuts (auto) 5.8, Absolute Lymphs (auto) 2.17, Nucleated RBC % 0, Sodium 137, Potassium 3.6, Chloride 102, Carbon Dioxide 25.0, Anion Gap 10, BUN 57 H, Creatinine 2.37 H, Estim Creat Clear Calc 15.00 L, Est GFR (MDRD) Non-Af 19 L, BUN/Creatinine Ratio 24.2 H, Glucose 160 H, Calcium 8.6 09/08/25 11:50: POC Glucose 212 H D/C Instructions DC O2, CPAP, BIPAP Needs Home O2 Discharge instructions: No Meaningful Use Info Meaningful Use Meaningful Use Diagnoses (Choose all that apply): None applicable Discharge Plan Admission Admit Date/Time: 09/05/25 18:33 Attending Provider: Jack Mae Primary Care Provider: Siena Warren Consulting Providers: Catie Vera; Stefanie Linares Discharge Orders/Prescriptions Prescriptions: New Eliquis 5 mg Tablet 2.5 mg PO BID 28 Days Qty: 28 0RF tramadol 25 mg tablet 25 mg PO Q6H PRN (Reason: pain) Qty: 7 0RF Continued Systane Balance 0.6 % drops 1 drp OPHTHALMIC QHS rosuvastatin 5 mg tablet 5 mg PO QDAY carvedilol [Coreg] 12.5 mg tablet 12.5 mg PO BID Qty: 60 6RF Rx Instructions: must administer with a meal/food amlodipine 5 mg tablet 5 mg PO QDAY Prevagen 1 tab PO 1XD allopurinol 100 mg tablet 100 mg PO DAILYCM Patient Comments: GOUT aspirin 81 MG tablet,chewable 81 mg PO DAILY calcium carbonate-vitamin D3 1 EACH tablet 1 ea PO DAILY insulin aspart U-100 100 unit/mL (3 mL) insulin pen 7 unit subcut QAC Rx Instructions: 8 units AM, 3 units, 6 units dinner furosemide 40 mg tablet 40 mg PO DAILY Qty: 30 0RF Rx Instructions: and as needed daily if your weight increases by 2 pounds in 1 day, or 3 pounds in 1 week. ferrous sulfate [FeroSul] 325 mg (65 mg iron) Tablet 325 mg PO BIDCM insulin glargine-yfgn 100 unit/mL (3 mL) insulin pen 14 unit subcut QHS Referrals / Follow Up: Westley Watts DO [Med Staff - Active Staff, Orthopedics] - Within 2 Weeks Siena Warren MD [Primary Care Provider, Internal Medicine] - 09/10/25 10:20 am Disposition Disposition (needs filled in before D/C Order can be placed): Jail Facility Charges/Coding Visit Charges Inpatient E&M: 24483 Disch Hosp >30min
[2025-09-08 12:42] VITALS: BP 163/78; PULSE 69; RESP 16; TEMP 36.5; O2SAT 97
== END 2025-09-08 16:00 | disposition skilled nursing facility (03) | DRG 481 ==
LOC: ED 17:39 → MS3 19:12
PROVIDERS: Anesthesiology; Orthopaedic Surgery; Admitting Provider Family Medicine; Emergency Provider Emergency Medicine; PCP Internal Medicine; Visit Provider Family Medicine
PROC: 0QS706Z Reposition Left Upper Femur with Intramedullary Internal Fixation Device, Open Approach (ICD-10-PCS; principal; 2025-09-06 13:30)
DX: S72.22XA Displaced subtrochanteric fracture of left femur, initial encounter for closed fracture (principal); I50.42 Chronic combined systolic (congestive) and diastolic (congestive) heart failure; N18.4 Chronic kidney disease, stage 4 (severe); I13.0 Hypertensive heart and chronic kidney disease with heart failure and stage 1 through stage 4 chronic kidney disease, or unspecified chronic kidney disease; D62 Acute posthemorrhagic anemia; D63.1 Anemia in chronic kidney disease; E11.22 Type 2 diabetes mellitus with diabetic chronic kidney disease; I65.21 Occlusion and stenosis of right carotid artery; I34.0 Nonrheumatic mitral (valve) insufficiency; E66.9 Obesity, unspecified; I25.10 Atherosclerotic heart disease of native coronary artery without angina pectoris; Z79.4 Long term (current) use of insulin; E78.5 Hyperlipidemia, unspecified; W18.39XA Other fall on same level, initial encounter; M1A.9XX0 Chronic gout, unspecified, without tophus (tophi); E11.69 Type 2 diabetes mellitus with other specified complication; I25.5 Ischemic cardiomyopathy; I25.2 Old myocardial infarction; R53.1 Weakness; Z68.31 Body mass index [BMI] 31.0-31.9, adult; Z95.5 Presence of coronary angioplasty implant and graft; Z79.82 Long term (current) use of aspirin; Z79.899 Other long term (current) drug therapy; Z86.73 Personal history of transient ischemic attack (TIA), and cerebral infarction without residual deficits; Z87.891 Personal history of nicotine dependence
CPT/HCPCS: 36415; 71045; 73502; 73552; 76000; 80048; 80053; 82962; 83735; 83880; 85014; 85018; 85025; 85610; 85730; 86644; 86850; 86900; 86901; 93005; 94668; 97110; 97116; 97163; 97164; 97167; 97530; 97535; 99285; C1713; P9040; A4216; J2405

== ENCOUNTER 2025-09-08 16:24 | Inpatient (IN) | payer MEDICARE, OTHER, SELFPAY ==
[2020-05-18 06:45] VITALS: BMI 31.1
[2025-09-08 16:35] VITALS: BP 181/72; PULSE 84; RESP 14; TEMP 36.6; O2SAT 98; BMI 29.5
--- NOTE | 2025-09-08 19:40 | HP.PCM_ITS ---
HPI - General General Date of Admission: 09/08/25 Date of Service: 09/08/25 Chief Complaint: Here for rehabilitation. HPI Narrative CONCHA WOODWARD, is a 89 F who presents with followin09/05/2025 [facility] ED lower extremity pain. Caught foot on leg of coffee table, fell, unable to get up. Left hip pain, arrived by ambulance. Fentanyl given by squad. X-ray showed left hip fracture. 09/05/2025 Admit [facility]. Preoperative evaluation, pain control, PT/OT, Orthopedics consultation for left hip fracture. 09/06/2025 Pain managed. Cardiology assessed patient low to moderate risk for left hip fracture surgery. 09/06/2025 Dr. Watts performed cephalomedullary fixation long of left hip fracture. 09/07/2025 Doing well, feels well, had bowel movement overnight. PT/OT, Pain control, left hip fracture status post repair. Kidney function baseline. Eliquis 2.5mg po bid for DVT prophylaxis. 09/07/2025 Patient requested TCU. 09/08/2025 No acute events overnight, pain managed, Hemoglobin 7.5, transfuse 1 unit PRBC. Eliquis 2.5mg po bid thru 10/11/2025 for DVT prophylaxis. 09/08/2025 Admit to TCU with debility, here for rehabilitation, strengthening, prior to discharge home alone. [facility] Medical History (Updated 09/08/25 @ 19:[address] Raffi Salazar MD) Chronic kidney disease Pulmonary hypertension, unspecified 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) heart failure with preserved ejection fraction Kidney disease Stroke/cerebrovascular accident Atherosclerosis of coronary artery of [place] heart without angina pectoris Bilateral renal cysts STEMI (ST elevation myocardial infarction) Acute renal failure superimposed on stage 3 chronic kidney disease Paroxysmal atrial fibrillation with RVR Carotid stenosis, right Decubitus ulcer, stage II Thrombocytopenia Acute blood loss anemia Chronic renal failure, stage 3 (moderate) Benign paroxysmal positional vertigo Mild atrial enlargement, left Nonrheumatic mitral valve regurgitation Internal hemorrhoids Diverticulosis Ischemic cardiomyopathy Hypertension Diabetes Physical debility Constipation due to pain medication Gout Basal ganglia infarction Intracranial meningioma Type II diabetes mellitus Benign hypertension Home Medications ?Medication ?Instructions ?Recorded ?Last Taken ?Type aspirin 81 mg chewable tablet 81 mg PO DAILY heart 09/08/25 08:05 History calcium carbonate-vitamin D3 600 1 ea PO DAILY bones 0 01/17/20 07/26/25 History mg-125 unit tablet propylene glycol 0.6 % eye drops 1 drp ophthalmic (eye ) QHS Dry Eyes 06/28/20 09/07/25 21:30 History (Systane Balance) insulin aspart U-100 100 unit/mL 7 unit subcut QAC dm 04/30/25 09/07/25 11:00 History (3 mL) subcutaneous pen rosuvastatin 5 mg tablet 5 mg PO QHS cholesterol 04/0609/07/25 21:30 History insulin glargine-yfgn 100 unit/mL 14 unit subcut QHS d m 06/14/25 09/07/25 12:10 History (3 mL) subcutaneous pen carvedilol 12.5 mg tablet (Coreg) 12.5 mg PO BID heart #60 tabs 07/02/25 09/08/25 08:05 Rx furosemide 40 mg tablet 40 mg PO DAILY edema #30 tab s 07/29/25 09/08/25 10:10 Rx Prevagen 1 tab PO 1XD supplement 11/29 Unknown History allopurinol 100 mg tablet 100 mg PO DAILYCM gout 08/0509/08/25 08:50 History amlodipine 5 mg tablet 5 mg PO QDAY HEART 08/05/25 09/08/25 10:10 History ferrous sulfate 325 mg (65 mg 325 mg PO BIDCM suppleme nt 09/05/25 09/08/25 08:05 History iron) tablet (FeroSul) apixaban 5 mg tablet (Eliquis) 2.5 mg (1/2 x 5 mg) PO BID Blood 09/08/25 09/08/25 Rx thinner 28 days #28 tabs tramadol 25 mg tablet 25 mg PO Q6H PRN pain #7 tab s 09/08/25 Unknown Rx Allergy/AdvReac Type Severity Reaction Status Date / Time codeine AdvReac Nausea/Vom/ Verified 08/05/25 14:20 Diarrhea morphine AdvReac Nausea/Vom/ Verified 08/05/25 14:20 Diarrhea Family History Aunt Breast cancer Mother Heart disease Father Heart disease Surgical History History of cholecystectomy History of coronary artery bypass graft H/O angioplasty History of left heart catheterization tubal Social History (Updated 09/08/25 @ 19:[address] Raffi Salazar MD) household members: none number of children: 2 current occupational status: retired Smoking Status: Former smoker alcohol intake: never substance use type: does not use diet: diabetic caffeine: Yes Type: coffee Number of servings: 1 seatbelt use: always do you feel safe at home: Yes additional social history: 2 children adopted ROS Constitutional Constitutional: Reports weakness; Denies chills, fever(s) or weight gain ENT HEENT: Denies headache(s), nasal congestion or nasal discharge Cardiovascular Cardiovascular: Denies chest pain or palpitations Respiratory/Chest Respiratory/Chest: Denies cough, excessive phlegm production or shortness of breath with exertion Gastrointestinal Gastrointestinal: Denies abdominal pain, nausea or vomiting Genitourinary Genitourinary: Denies dysuria Musculoskeletal Musculoskeletal: Denies joint pain or joint swelling Integumentary Integumentary: Denies rash or wounds Neurologic Neurologic: Denies focal weakness, numbness or tingling Psychiatric Psychiatric: Denies anxiety, auditory hallucinations, depression, homicidal ideation or suicidal ideation Vital Signs Vital Signs Vital Signs: 09/08/25 16:35 09/08/25 16:35 Temperature 97.8 F Temperature Source Temporal Pulse Rate 84 Pulse Rhythm Regular Pulse Strength Normal (2+) Respiratory Rate 14 Respiratory Effort Normal Non-Labored Respiratory Depth Normal Respiratory Pattern Normal Blood Pressure 181/72 H Blood Pressure Mean 108 Blood Pressure Position Semi-Fowlers Blood Pressure Location Left Arm Pulse Ox 98 Oxygen Delivery Method Room Air Room Air Weight Weight: 73.346 kg Body Mass Index (BMI) 29.5 Physical Exam Const alert General Appearance: cooperative HEENT normocephalic Eyes PERRL and EOMs intact bilaterally Neck supple, no JVD and no carotid bruits Resp normal respiratory effort, normal air movement and clear to auscultation bilaterally Cardio regular rate and regular rhythm GI normal to inspection, nondistended, normoactive bowel sounds, non-tender and non-distended Extremity normal capillary refill General Extremity: Negative for edema Skin no rashes or lesions noted General Skin Exam: no breakdown Psych affect normal Appearance: appropriate Results Lab / Micro Data Labs: Laboratory Results - last 24 hr 09/08/25 17:06: POC Glucose 194 H Assessment & Plan Assessment/Plan (1) Debility: (2) Closed left hip fracture: (3) Type 2 diabetes mellitus with hyperglycemia: (4) Essential (primary) hypertension: (5) Chronic heart failure with preserved ejection fraction (HFpEF): (6) Coronary artery disease: (7) HLD (hyperlipidemia): QUALIFIERS: Hyperlipidemia type: unspecified Qualified Code(s): E78.5 - Hyperlipidemia, unspecified (8) Pulmonary hypertension, unspecified: (9) Anemia in chronic kidney disease: (10) CKD (chronic kidney disease) stage 4, GFR 15-29 ml/min: (11) Atrial fibrillation: (12) Gout: (13) Iron deficiency anemia: PLAN: Plan 89 year old female with below past medical history hospitalized for left hip fracture, underwent long cephalomedullary nail fixation of left femur 09/06/[address] Watts, postoperative course complicated by acute blood loss anemia requiring transfusion, admitted to TCU with debility, here for rehabilitation, strengthening, prior to discharge home alone. * Debility - PT/OT. * Pain - Tylenol 1000mg q8, Tramadol 50mg q6 prn pain (1-5), Oxycodone 2.5mg q4 prn pain (6-10). * Bowel - senna/colace 2 tablets bid, Magnesium citrate 300mL daily prn. * Adult immunization - Administer pneumonia vaccine, covid vaccine, flu vaccine as appropriate. * DVT prophylaxis - Eliquis 2.5mg bid thru 09/22/2025. * Gout - Allopurinol 100mg daily. * Hypertension - Coreg 12.5mg bid, Amlodipine 5mg daily. * Coronary artery disease - Coreg 12.5mg bid, Aspirin 81mg daily 09/23/2025. * Hyperlipidemia - Atorvastatin 10mg qhs. * Calcium deficiency - Calcium D 1 tablet daily. * Dry eyes - Artificial tears 1 gtt ou qhs. * Iron deficiency anemia - Ferrous sulfate 325mg bid. * Chronic HFpEF - Coreg 12.5mg bid, Furosemide 40mg daily. * Diabetes Mellitus II - Glargine 14 units daily, Humalog 8 units, 3 units, 6 units, Glucagon 1mg im x 1 prn. * Skin irritation - Calmoseptine topical bid. * Tinea Cruris - Nystatin powder topical bid. * ckd stage 4 - Low threshold to consult Renal if kidney function worse.
[2025-09-08] MEDS: Senna/Docusate Sodium 1 Tablet 2 TABLET PO (21:38)
[2025-09-08] MEDS: APIXABAN 2.5 MG TABLET (WCH) PO (21:39)
[2025-09-08] MEDS: Insulin Glargine-YFGN 100 UNIT/ML Pen 14 UNIT SC (21:55)
[2025-09-09 07:23] LABS: Hematocrit 28.0 % (37-47); Hemoglobin 9.3 g/dL (12.0-15.0); Immature Granulocytes Count 0.080 X10^3/uL (0.0-0.0); Mean Corp Hgb Conc 33.2 g/dL (32-36); Mean Corpuscular Volume 89.7 fL (81-99); Mean Platelet Vol. 11.2 fl (6.2-12.0); NRBC Flagged by Analyzer 0 % (0-5); Platelet Count 244 K/mm3 (150-450); RBC Distribution Width CV 15.5 % (11.6-14.6); RBC Distribution Width SD 50.9 fl (35.1-43.9); Red Blood Count 3.12 M/mm3 (4.2-5.4); White Blood Count 9.9 K/mm3 (4.4-11.0)
[2025-09-09 08:02] LABS: Anion Gap 10 (5-15); BUN 55 mg/dL (4-19); BUN/Creat Ratio 25.8 RATIO (10-20); Calcium,Total 8.6 mg/dL (7.6-11.0); Carbon Dioxide 25.1 mmol/L (21.0-32.0); Chloride 102 mmol/L (98-108); Estimated Creatinine Clearance 17.12 ml/min (50-250); Glucose 171 mg/dL (70-99); Potassium 3.9 mmol/L (3.3-5.1)
[2025-09-09 09:02] VITALS: BP 158/61; PULSE 71; RESP 18; TEMP 36.6; O2SAT 97
[2025-09-09] MEDS: Calcium Carb/Vitamin D 1 TABLET Tablet PO (09:04)
[2025-09-09] MEDS: APIXABAN 2.5 MG TABLET (WCH) PO ×2 (09:05→22:33)
[2025-09-09] MEDS: Tuberculin,Purif.prot.deriv. 50 TU/ML Vial 0.1 ML ID (12:00)
[2025-09-09] MEDS: 0.9% Saline Lock 10 ML Syringe IV (12:05)
--- NOTE | 2025-09-09 13:47 | PHA.CONS_ITS ---
Documented by User: Rene Ordonez 09/09/25 17:01 TCU RX Drug Regimen Review Subjective/Objective Subjective/Objective Subjective: TCU Admission. 89 year old female hospitalized for left hip fracture, underwent long cephalomedullary nail fixation of left femur 09/06/[address] Watts, postoperative course complicated by acute blood loss anemia requiring transfusion. Admitted to TCU with debility, here for rehabilitation, strengthening, prior to discharge home alone. Objective: Allergies codeine Adverse Reaction (Verified 08/05/25 14:20) Nausea/Vom/Diarrhea morphine Adverse Reaction (Verified 08/05/25 14:20) Nausea/Vom/Diarrhea Current Medications Generic Name Dose Route Start Last Admin Trade Name Freq PRN Reason Stop Dose Admin Acetaminophen 1,000 mg 09/08/25 22:00 09/09/25 05:29 Acetaminophen 500 Mg Tablet PO 1,000 mg Q8 [facility] Administration Allopurinol 100 mg 09/09/25 08:00 09/09/25 09:04 Allopurinol 100 Mg Tablet PO 100 mg DAILYCM [facility] Administration Amlodipine Besylate 5 mg 09/09/25 10:00 09/09/25 09:04 Amlodipine 5 Mg Tablet PO 5 mg DAILY [facility] Administration Protocol Apixaban 2.5 mg 09/08/25 22:00 09/09/25 09:05 Apixaban 2.5 Mg Tablet ([facility]) PO 09/22/25 10:01 2.5 mg BID [facility] Administration Artificial Tears 1 drp 09/08/25 22:00 09/08/25 21:43 Carboxymethylcellulose Sodium 15 Ml Ophth Drops EACH EYE Not Given QHS [facility] Aspirin 81 mg 09/23/25 08:00 Aspirin 81 Mg Tab.Chew PO BREAKFAST [facility] Atorvastatin Calcium 10 mg 09/08/25 22:00 09/08/25 21:39 Atorvastatin Calcium 10 Mg Tablet PO 10 mg QHS [facility] Administration Calamine/Phenol 1 applic 09/08/25 22:00 09/09/25 09:05 Menthol/Lanolin/Calamine/Znox 113 Gm Tube TOPICAL 1 applic BID [facility] Administration Protocol Calcium/Vitamin D 1 tablet 09/09/25 08:00 09/09/25 09:04 Calcium Carb/Vitamin D 1 [facility] Carvedilol 12.5 mg 09/08/25 17:00 09/09/25 09:04 Carvedilol 12.5 Mg Tablet PO 12.5 mg BIDCM [facility] Administration Protocol Ferrous Sulfate 325 mg 09/08/25 17:00 09/09/25 12:02 Ferrous Sulfate 325 Mg Tablet PO 325 mg BID@1200,1700 [facility] Administration Furosemide 40 mg 09/09/25 10:00 09/09/25 09:04 Furosemide 40 Mg Tablet PO 40 mg DAILY [facility] Administration Protocol Glucagon 1 mg 09/08/25 16:42 Glucagon 1 Mg/Ml Syringe IM X1 PRN Hypoglycemia Protocol Dextrose 250 mls @ 0 mls/hr 09/08/25 16:42 Dextrose 10%-Water IV .Q0M PRN HYPOGLYCEMIA Protocol As Directed Insulin Glargine 14 unit 09/08/25 22:00 09/08/25 21:55 Insulin Glargine-Yfgn 100 Unit/Ml Pen SC 14 unit QHS [facility] Administration Insulin Human Lispro 8 unit 09/09/25 08:00 09/09/25 09:05 Insulin Lispro 100 Unit/Ml Insuln.Pen SC 8 units BREAKFAST [facility] Administration Insulin Human Lispro 3 unit 09/09/25 12:00 09/09/25 11:58 Insulin Lispro 100 Unit/Ml Insuln.Pen SC 3 units LUNCH [facility] Administration Insulin Human Lispro 6 unit 09/08/25 17:55 09/08/25 18:01 Insulin Lispro 100 Unit/Ml Insuln.Pen SC 6 u DINNER [facility] Administration Magnesium Citrate 300 ml 09/08/25 19:52 Magnesium Citrate 300 Ml PO DAILY PRN Constipation Nystatin 1 applic 09/08/25 22:00 09/09/25 09:05 Nystatin Powder 15gm Bottle TOPICAL 1 applic BID [facility] Administration Protocol Oxycodone HCl 2.5 mg 09/08/25 19:53 Oxycodone 5 Mg Tablet PO Q4H PRN PRN Pain Score 6-10 or Pre PT/OT Senna/Docusate Sodium 2 tablet 09/08/25 22:00 09/09/25 09:08 Senna/Docusate Sodium 1 Tablet PO Not Given BID [facility] Sodium Chloride 10 - 40 ml 09/08/25 16:42 09/09/25 12:05 0.9% Saline Lock 10 Ml Syringe IV 10 ml UD PRN Administration SALINE FLUSH Tramadol HCl 25 mg 09/09/25 12:12 09/09/25 12:17 Tramadol 50 Mg Tablet PO 25 mg Q6H PRN PRN Administration Pain Score 1-5 or Pre PT/OT Tuberculin PPD 0.1 ml 09/16/25 10:00 Tuberculin,Purif.Prot.Deriv. 50 Tu/Ml Vial ID 09/16/25 10:01 X1 ONE Problem List Iron deficiency anemia (Acute) Gout (Acute) Atrial fibrillation (Acute) Anemia in chronic kidney disease (Chronic) Coronary artery disease (Acute) Chronic heart failure with preserved ejection fraction (HFpEF) (Acute) Essential (primary) hypertension (Acute) Type 2 diabetes mellitus with hyperglycemia (Acute) Closed left hip fracture (Acute) Debility (Acute) Pulmonary hypertension, unspecified (Acute) CKD (chronic kidney disease) stage 4, GFR 15-29 ml/min (Chronic) HLD (hyperlipidemia) (Chronic) Vital Signs Temp Pulse Resp BP Pulse Ox O2 Del Method 97.9 F 71 18 158/61 H 97 Room Air 09/09/25 09:02 09/09/25 09:02 09/09/25 09:02 09/09/25 09:02 09/09/25 09:02 09/09/25 10:00 Oxygen Delivery Method Room Air Weight: 73.346 kg Body Mass Index (BMI) 29.5 Sodium 137 mmol/L (133-145) 09/09/25 07:11 Potassium 3.9 mmol/L (3.3-5.1) 09/09/25 07:11 Chloride 102 mmol/L (98-108) 09/09/25 07:11 Carbon Dioxide 25.1 mmol/L (21.0-32.0) 09/09/25 07:11 Anion Gap 10 (5-15) 09/09/25 07:11 BUN 55 mg/dL (4-19) H 09/09/25 07:11 Creatinine 2.13 mg/dL (0.70-1.20) H 09/09/25 07:11 Est GFR (MDRD) Non-Af 22 (>60) L 09/09/25 07:11 BUN/Creatinine Ratio 25.8 RATIO (10-20) H 09/09/25 07:11 Glucose 171 mg/dL (70-99) H 09/09/25 07:11 Assessment/Plan: 1. Pain - Tylenol 1000mg PO Q8H, Tramadol 50mg PO Q6H PRN pain (1-5) (x2 PRN doses given), Oxycodone 2.5mg PO Q4H PRN pain (6-10) (x2 PRN doses given). Monitor pain scores before/after prn administration for response, PRN pain medication usage, symptoms of pain/resident distress and ability to participate in therapy. AST/ALT: 19/14 (09/06/25). Check LFTs if resident develops symptoms of hepatoxicity. Consider monitoring LFTs if patient using > 3 gm/day of acetaminophen for prolonged period. Do not exceed 4000 mg in 24 hours. Monitor for constipation (last BM: 09/07/25), respiratory depression (current RR range: 14-18), falls and sedation/delirium (Beers). 2. Bowel - senna/colace 2 tablets PO BID, Magnesium citrate 300mL PO daily PRN (constipation) (Resident has not used any prn doses at this time). Last document bowel movement: 09/07/25. Monitor for usage of prn medications, abdominal pain, frequency of bowel movements, diarrhea. Recommend holding bowel regimen if resident develops diarrhea. 3. DVT prophylaxis - Eliquis 2.5mg PO BID thru 09/22/2025. Monitor for symptoms of VTE (new onset leg pain, swelling, erythema, SOB, chest pain, hypoxia) and bleeding. Monitor renal function (SCr = 2.13 (09/07/25)) and body weight (Wt = 73.4 kg). Current dose appropriate for age, weight and SCr. Monitor for symptoms of bleeding (including melena, hemoptysis, hematuria, epistaxis, new-onset headache), hemoglobin (last Hgb = 9.3 (09/09)). 4. Gout - Allopurinol 100mg PO daily. Please monitor for worsening renal function (SCr: 2.13), joint pain, and gout flares. 5. Hypertension - Coreg 12.5mg PO BID, Amlodipine 5mg PO daily. BP range since admission = 139/51 - 181/72, HR range since admission 69-84.?BP does not appear to be at goal. Monitor blood pressure, heart rate, symptoms of orthostasis, dizziness.? Consider checking orthostatic blood pressure and implementing fall precautions with any indication of orthostatic hypotension. Monitor for development of peripheral edema. Monitor for bradyarrhythmia, fatigue, sleep disturbance and for new/worsening heart failure symptoms. For diabetic patients, monitor glucose. Consider adding an ISABELLA-inhibitor or an ARB to the medication regimen. 6. Coronary artery disease - Coreg 12.5mg PO BID, Aspirin 81mg PO daily 09/23/2025. Monitor for chest pain, shortness of breath, exercise tolerance, BP (range since admission = 139/51 - 181/61). Monitor for GI upset, symptoms of bleeding (including melena, hemoptysis, hematuria, epistaxis, new-onset headache), hemoglobin (last Hgb = 9.3) and allergic reactions. 7. Hyperlipidemia - Atorvastatin 10mg PO QHS. Last FLP = 2013. Last FLP < 1 year ago. Consider ordering a FLP to determine efficacy of current lipid-lowering regimen. Monitor for headache, nausea, diarrhea, new muscle pain/cramping or weakness.? Consider CPK if myopathy/rhabdomyolysis suspected. Monitor AST/ALT (last = (09/06/25)) if symptoms suggestive of hepatoxicity. 8. General Wellness - Calcium D 1 tablet PO daily, Artificial tears 1 gtt OU QHS, Calmoseptine topical BID, Nystatin powder topical BID. Please monitor calc ium levels (Ca: 8.6), dry eyes, eye soreness, continued skin irritation, and worsening rash. 9. Iron deficiency anemia - Ferrous sulfate 325mg PO BID. Please monitor for constipation, dyspepsia, upset stomach, and repeat anemia labs. Labs: MCV: 89.7, Fe saturation: 7 (06/15/25), Ferritin 153 (06/15/25), TIBC: 290 (06/15/25), Fe: 21 (06/15/25). 10. Chronic HFpEF - Furosemide 40mg PO daily. Last echo EF: 55% (06/16/25). BP range since admission = 139/51 - 181/72, HR range since admission 69-84.?Heart failure regimen could potentially be optimized with guideline-directed medical therapy.?Consider adding empagliflozin 10 mg tablet PO daily to the medication regimen. Monitor volume status (weight, lower extremity edema, JVD, lung examination) and for symptoms of exacerbation (SOB, dyspnea on exertion, orthopnea, edema, fatigue, wet cough or frothy/pink mucous). Monitor serum potassium (last K = 3.9 (09/09)), magnesium (last Mg= 2.1 (09/05)), calcium (last Ca = 8.6 (09/09)) and sodium (last Na = 137 (09/09)).?Monitor volume status, symptoms of orthostasis, and renal function (SCr = 2.13 (Improving)). 11. Diabetes Mellitus II - Glargine 14 units SC daily, Humalog SC 8 units, 3 units, 6 units, Glucagon 1mg IM x 1 PRN (hypoglycemia) (Resident has not used any prn doses at this time). Please monitor glucose levels (last 24 Hr: 153- 194), for signs/symptoms of hypoglycemia, PRN medication usage, increased thirst/hunger, and appetite changes. 12. CKD stage 4 - Low threshold to consult Renal if kidney function worse. Assessment/Plan for indications treated with psychotropic medications: Resident is not prescribed scheduled or PRN psychotropic medications at the time of this drug regimen review. Medical chart and medication regimen reviewed. The following medication irregularities or issues were identified: - Please consider adding an ISABELLA-inhibitor or an ARB to the medication regimen. - Please consider ordering a FLP to determine efficacy of current lipid-lowering regimen. - Please consider adding empagliflozin 10 mg tablet PO daily to the medication regimen. Date Date of Note: 09/09/25 Documented by User: Dr. Raffi Salazar MD 09/09/25 17:06 TCU RX Drug Regimen Review Provider Comments Provider responsibility Provider Comments to Recommendations by Pharmacy Agree
--- NOTE | 2025-09-09 14:08 | MDS.RN ---
MDS Entry Tracker completed, assessed pain.
--- NOTE | 2025-09-09 14:59 | NURSING ---
Baby Sitter Note; Activity Asset: Lisa Bolanos is independent in her choice of daily activities. She will read, watch tv, has family/friends visits and welcomes the vice president of manufacturing and therapy dog when available. she will try and attend group activities as she feels better. Staff will continue to encourage social activities, remind her of weekly activities and respect her right to say no.
--- NOTE | 2025-09-09 15:33 | CASEMGMT ---
Social Work SW met with pt and completed initial assessment. Contacts were verified. Pt is currently listed as full code, however, after discussion regarding code status, pt is requesting to be a DNRCCA. Nursing was notified and to address. SW educated pt to Medicare benefit and copay coverage. Pt does have a living will and health care POA on file that was dated 1993. HCPOA lists three decision makers. SW reviewed this document with pt who states her spouse has and the other two listed are no longer able to be decision makers. Pt states she believes she has completed a new HCPOA but will need to check with her dgt. SW encouraged pt to talk to dgt and if documents have been updated, bring them in for scanning into the medical record. If pt has not updated documents, pt encouraged to reach out to SW to assist with completing new LW and HCPOA. Pt understanding and agreeable. Pt lives at home alone in a one story home with 1 step to enter and was independent with all ADLs and IADLS prior to admission. Pt plans to return home at time of discharge. Pt is active with [facility] and has a medical alert. SW to continue to follow for dc planning. SAUL Kinsey
--- NOTE | 2025-09-09 16:01 | CASEMGMT ---
BIMS () and PHQ2 (0) interviews completed on this date for MDS assessment. SAUL Carrera
[2025-09-09] MEDS: Insulin Glargine-YFGN 100 UNIT/ML Pen 14 UNIT SC (22:32)
[2025-09-09] MEDS: CARBOXYMETHYLCELLULOSE SODIUM 15 ML OPHTH DROPS 1 DRP EACH EYE (22:33)
[2025-09-09] MEDS: Senna/Docusate Sodium 1 Tablet 2 TABLET PO (22:33)
--- NOTE | 2025-09-09 22:51 | NURSING ---
FURNACE LOADER notified nurse pt had vomited, nurse went to assess patient, pt requested zofran for nausea. Returned 30 minutes later to administer medications. Patient took medications within 1 or less patient was vomiting medications up. Advised Adam SALINAS, will contact Dr. Salazar. Patient has no other symptoms or triggers. Pt states just happens, pt has vomited 3x today. Will continue to monitor.
--- NOTE | 2025-09-09 23:14 | NURSING ---
Patient reports emesis x2 days 3 times today, with last emesis after HS med administration by primary nurse. Patient reports emesis when I was on med surg too. Patient denies abdominal pain, denies trigger, patient reports LBM 11/. BS x4 quadrants, hx diverticulosis. Patient requests PRN Zofran. Dr. Salazar contacted via telephone regarding above information. Per Dr. Salazar patient previously reported Tramadol as possibly causing nausea. New orders received and repeated back: d/c tramadol, encourage Oxy as ordered for pain management, Repeat CBC/BMP in AM, straight cath for UA C&S, KUB, Zofran ODT 8mg Q8H PRN give first dose now.
--- NOTE | 2025-09-09 23:28 | RAD_ITS ---
PROCEDURE: ABDOMEN SINGLE VIEW (PORTABLE) 09/09/2025 REASON FOR EXAM: NAUSEA/VOMITING TECHNIQUE: Procedure Code: RADABD_P Modality: DX Procedure: ABDOMEN SINGLE VIEW (PORTABLE) COMPARISON: CT scan on 07/24/2022. FINDINGS: Mild diffuse gaseous dilatation of the stomach. Prior cholecystectomy. Normal visualized lung bases. Mild amount of fecal residue in the large bowels. There is an unremarkable bowel gas pattern. There is no demonstrated free abdominal air. Normal visualized liver. Normal visualized spleen. Normal visualized kidneys. The soft tissue structures of the pelvis are unremarkable. Mild diffuse spondylosis. Open reduction internal fixation of left proximal femoral diaphyseal fracture in good alignment. Unremarkable metallic hardware of the left femur. Mild degenerative joint disease. RAD/Abdomen Single View (Portable) IMPRESSION: Mild diffuse gaseous dilatation of the stomach. Reading [facility] [id number]
--- NOTE | 2025-09-09 23:55 | NURSING ---
Dr. Salazar ordered stat KUB, straight cath UA/C, Zofran 8mg x1. Imaging done on unit, straight cath done, zofran given. Patient tolerated well, will continue to monitor
[2025-09-10 00:29] LABS: Mucous, Urine 0 SEEN /hpf (<or=2+)
[2025-09-10 00:31] LABS: Color, Urine Yellow (Yellow); Glucose, Dipstick 100 mg/dl (Normal); Ketone-Dipstick Negative (Negative); Leukocyte Esterase-Dipstick Negative /ul (Negative); Nitrite-Dipstick Negative (Negative); Occult Blood-Urine 25 /ul (Negative); Protein-Dipstick 100 mg/dl (Negative); Specific Gravity, Urine 1.010 (1.002-1.030); Urine Bilirubin Dipstick Negative (Negative)
[2025-09-10 00:51] LABS: Red Blood Cells-Urine 5-10 SEEN /hpf (0-5); Squamous Epithelial Cells - UA 0-5 SEEN /hpf (5-10)
[2025-09-10 05:57] LABS: Hematocrit 29.1 % (37-47); Hemoglobin 9.4 g/dL (12.0-15.0); Immature Granulocytes Count 0.050 X10^3/uL (0.0-0.0); Mean Corp Hgb Conc 32.3 g/dL (32-36); Mean Corpuscular Volume 90.7 fL (81-99); Mean Platelet Vol. 11.1 fl (6.2-12.0); NRBC Flagged by Analyzer 0 % (0-5); Platelet Count 271 K/mm3 (150-450); RBC Distribution Width CV 15.4 % (11.6-14.6); RBC Distribution Width SD 51.3 fl (35.1-43.9); Red Blood Count 3.21 M/mm3 (4.2-5.4); White Blood Count 8.4 K/mm3 (4.4-11.0)
[2025-09-10 06:46] LABS: Anion Gap 11 (5-15); BUN 53 mg/dL (4-19); BUN/Creat Ratio 27.0 RATIO (10-20); Calcium,Total 9.0 mg/dL (7.6-11.0); Carbon Dioxide 26.3 mmol/L (21.0-32.0); Chloride 100 mmol/L (98-108); Cholesterol 118 mg/dL (<=200); Estimated Creatinine Clearance 18.70 ml/min (50-250); Glucose 185 mg/dL (70-99); Low Density Lipoprotein Calc. 46 mg/dL; Potassium 3.5 mmol/L (3.3-5.1); Triglycerides 180 mg/dL; Very Low Density Lipoprotein 36 mg/dL (5-40); cholesterol:hdl ratio screen 2.79
[2025-09-10] MEDS: APIXABAN 2.5 MG TABLET (WCH) PO ×2 (08:37→22:45)
[2025-09-10] MEDS: Calcium Carb/Vitamin D 1 TABLET Tablet PO (08:37)
[2025-09-10] MEDS: Senna/Docusate Sodium 1 Tablet 2 TABLET PO ×2 (08:40→22:49)
[2025-09-10 08:42] VITALS: BP 138/59; PULSE 72; RESP 17; TEMP 36.2; O2SAT 97
--- NOTE | 2025-09-10 16:08 | CHAPLAIN ---
Type of Pastoral Visit ___ Initial Visit _x__ Follow-up Visit ___ On-call Visit ___ General Patient Visit ___ Spiritual Assessment ___ Family Conference ___ Bereavement ___ Rapid Response ___ Code Blue ___ Other (describe below) Pastoral Care Referral From _x__ Patient ___ Family ___ Nurse ___ Physician ___ Furnace Combustion Analyst ___ Parts Data Writer ___ Other (describe below) Sacrament/Intervention _x__ Active listening ___ Anointing ___ Rastafari ___ Bereavement ___ Communion _x__ Lelo exploration ___ ___ Life review _x__ Prayer ___ Reconciliation ___ Sacrament of Sick _x__ Supportive presence ___ Wedding ___ Other (describe below) Pastoral Comments patient has some questions of spiritual nature and about her [employer] that she asks; pt has goal of gaining strength and getting home again; pt wants prayer for her goals to be met
[2025-09-10 17:10] VITALS: BP 156/66; PULSE 67
[2025-09-10 22:45] VITALS: PULSE 65; RESP 16
[2025-09-10] MEDS: Insulin Glargine-YFGN 100 UNIT/ML Pen 14 UNIT SC (22:46)
[2025-09-10] MEDS: CARBOXYMETHYLCELLULOSE SODIUM 15 ML OPHTH DROPS 1 DRP EACH EYE (22:48)
[2025-09-11] MEDS: Senna/Docusate Sodium 1 Tablet 2 TABLET PO ×2 (10:32→22:19)
[2025-09-11] MEDS: Calcium Carb/Vitamin D 1 TABLET Tablet PO (10:34)
[2025-09-11] MEDS: APIXABAN 2.5 MG TABLET (WCH) PO ×2 (10:35→22:20)
[2025-09-11 11:28] VITALS: BP 156/64; PULSE 69; RESP 17; TEMP 36.4; O2SAT 99
[2025-09-11] MEDS: CARBOXYMETHYLCELLULOSE SODIUM 15 ML OPHTH DROPS 1 DRP EACH EYE (22:19)
[2025-09-11] MEDS: Insulin Glargine-YFGN 100 UNIT/ML Pen 14 UNIT SC (22:20)
[2025-09-12 08:32] VITALS: BP 139/60; PULSE 76; RESP 18; TEMP 36.4; O2SAT 97
[2025-09-12] MEDS: Calcium Carb/Vitamin D 1 TABLET Tablet PO (08:34)
[2025-09-12] MEDS: APIXABAN 2.5 MG TABLET (WCH) PO ×2 (08:36→20:37)
[2025-09-12] MEDS: Senna/Docusate Sodium 1 Tablet 2 TABLET PO ×2 (08:38→20:39)
[2025-09-12] MEDS: Insulin Glargine-YFGN 100 UNIT/ML Pen 14 UNIT SC (20:37)
[2025-09-12] MEDS: CARBOXYMETHYLCELLULOSE SODIUM 15 ML OPHTH DROPS 1 DRP EACH EYE (20:39)
[2025-09-12 20:45] VITALS: PULSE 62; RESP 16
[2025-09-13 08:19] VITALS: BP 146/53; PULSE 75; RESP 18; TEMP 36.8; O2SAT 95
[2025-09-13] MEDS: Calcium Carb/Vitamin D 1 TABLET Tablet PO (08:23)
[2025-09-13] MEDS: APIXABAN 2.5 MG TABLET (WCH) PO ×2 (08:24→21:30)
[2025-09-13] MEDS: Senna/Docusate Sodium 1 Tablet 2 TABLET PO ×2 (08:26→21:33)
[2025-09-13] MEDS: Insulin Glargine-YFGN 100 UNIT/ML Pen 14 UNIT SC (21:31)
[2025-09-13] MEDS: CARBOXYMETHYLCELLULOSE SODIUM 15 ML OPHTH DROPS 1 DRP EACH EYE (21:33)
[2025-09-13 22:01] VITALS: PULSE 64; RESP 17
--- NOTE | 2025-09-14 08:19 | NURSING ---
Left VM with clinical staff at Dr. Watts's office to see about removing surgical dressing and if he will see here for 2 week post-op appt. Await return call.
[2025-09-14 09:54] VITALS: BP 162/63; PULSE 78; RESP 18; TEMP 36.6; O2SAT 96
[2025-09-14] MEDS: APIXABAN 2.5 MG TABLET (WCH) PO ×2 (09:56→23:14)
[2025-09-14] MEDS: Calcium Carb/Vitamin D 1 TABLET Tablet PO (09:57)
[2025-09-14] MEDS: Senna/Docusate Sodium 1 Tablet 2 TABLET PO ×2 (09:59→23:13)
[2025-09-14 10:00] VITALS: PULSE 75; RESP 17
--- NOTE | 2025-09-14 12:49 | NURSING ---
Offered covid vaccine, VIS provided. Resident declines.
--- NOTE | 2025-09-14 16:36 | NURSING ---
's office will call back tomorrow after they speak with him and call us back tomorrow 09/15/25 for wound dressing.
[2025-09-14] MEDS: CARBOXYMETHYLCELLULOSE SODIUM 15 ML OPHTH DROPS 1 DRP EACH EYE (23:14)
[2025-09-14] MEDS: Insulin Glargine-YFGN 100 UNIT/ML Pen 14 UNIT SC (23:14)
[2025-09-15] MEDS: Calcium Carb/Vitamin D 1 TABLET Tablet PO (08:06)
[2025-09-15] MEDS: APIXABAN 2.5 MG TABLET (WCH) PO ×2 (08:07→20:10)
[2025-09-15] MEDS: Senna/Docusate Sodium 1 Tablet 2 TABLET PO ×2 (08:11→20:15)
--- NOTE | 2025-09-15 08:46 | NURSING ---
Call from Silvia with Dr. Watts, orders to change surgical site dressing daily with DSD. Cleanse daily with antibacterial soap. He will plan to see her on TCU for 2 week follow-up.
[2025-09-15 10:39] VITALS: BP 161/61; PULSE 77; RESP 16; TEMP 36.4; O2SAT 98
--- NOTE | 2025-09-15 16:04 | CHAPLAIN ---
Type of Pastoral Visit ___ Initial Visit _x__ Follow-up Visit ___ On-call Visit ___ General Patient Visit ___ Spiritual Assessment ___ Family Conference ___ Bereavement ___ Rapid Response ___ Code Blue ___ Other (describe below) Pastoral Care Referral From _x__ Patient ___ Family ___ Nurse ___ Physician ___ Security Representative ___ Sample Maker ___ Other (describe below) Sacrament/Intervention _x__ Active listening ___ Anointing ___ Gnosticism ___ Bereavement ___ Communion ___ Lelo exploration ___ _x__ Life review _x__ Prayer ___ Reconciliation ___ Sacrament of Sick ___ Supportive presence ___ Wedding ___ Other (describe below) Pastoral Comments
[2025-09-15 16:39] VITALS: BMI 29.1
[2025-09-15 19:49] VITALS: PULSE 75; RESP 18; O2SAT 99
[2025-09-15] MEDS: CARBOXYMETHYLCELLULOSE SODIUM 15 ML OPHTH DROPS 1 DRP EACH EYE (20:15)
[2025-09-15] MEDS: Insulin Glargine-YFGN 100 UNIT/ML Pen 14 UNIT SC (20:18)
[2025-09-16 05:50] LABS: Hematocrit 28.4 % (37-47); Hemoglobin 9.2 g/dL (12.0-15.0); Immature Granulocytes Count 0.040 X10^3/uL (0.0-0.0); Mean Corp Hgb Conc 32.4 g/dL (32-36); Mean Corpuscular Volume 91.6 fL (81-99); Mean Platelet Vol. 10.4 fl (6.2-12.0); NRBC Flagged by Analyzer 0 % (0-5); Platelet Count 366 K/mm3 (150-450); RBC Distribution Width CV 15.8 % (11.6-14.6); RBC Distribution Width SD 52.7 fl (35.1-43.9); Red Blood Count 3.10 M/mm3 (4.2-5.4); White Blood Count 8.6 K/mm3 (4.4-11.0)
[2025-09-16 06:50] LABS: Anion Gap 12 (5-15); BUN 68 mg/dL (4-19); BUN/Creat Ratio 31.2 RATIO (10-20); Calcium,Total 9.1 mg/dL (7.6-11.0); Carbon Dioxide 22.9 mmol/L (21.0-32.0); Chloride 99 mmol/L (98-108); Estimated Creatinine Clearance 16.61 ml/min (50-250); Glucose 203 mg/dL (70-99); Potassium 4.2 mmol/L (3.3-5.1)
[2025-09-16] MEDS: Calcium Carb/Vitamin D 1 TABLET Tablet PO (07:50)
[2025-09-16] MEDS: APIXABAN 2.5 MG TABLET (WCH) PO ×2 (07:51→21:31)
[2025-09-16] MEDS: Senna/Docusate Sodium 1 Tablet 2 TABLET PO ×2 (07:57→21:35)
[2025-09-16 08:01] VITALS: BP 139/62; PULSE 70; RESP 16; TEMP 36.8; O2SAT 99
--- NOTE | 2025-09-16 08:41 | NURSING ---
Media Arts Professor Note; MDS for 09/15/2025 Complete
--- NOTE | 2025-09-16 09:32 | CASEMGMT ---
Social Work IDT met with patient and dtr for care plan meeting. Discussed patient's progress in PT/OT/SN/RDN. Educated to Medicare benefit. Provided pt/family with written communication of insurance process and copay coverage during stay. Therapy reported pt is x2 assist and slow with improvement, pain is limiting but pt has emesis' with pain meds. SW educated to continued stay is contingent on meeting Medicare guidelines. SW broached maybe needing an alternative DC plan, such as an ECF. SW educated intermediate care is OOP or for SW to determine if pt is Medicaid eligible. SW provided list of SNFs in preferred geographical area, INN with pt?s insurance, including quality and resource data via [employer] Guide and ZACHERY checklist. Dtr and pt expressed understanding. Nursing and therapy left written communication for Dr on pain levels. SW will continue to follow for DC planning. Fidelina Clifford MSW CONTACT REPRESENTATIVE
--- NOTE | 2025-09-16 10:26 | NURSING ---
Addendum entered by Krysten Clifford 09/16/25 18:16: Femur xray back with no acute findings. Addendum entered by Sade Garrison 09/16/25 10:58: Call back from Renita Siddiqui CNP, orders to do femur xray. She also asked for uric acid level to be drawn, concern for slightly elevated BUN/creat, on allopurinol. Updated resident and note left to update Dr. Salazar. Original Note: Called to update Dr. Watts that resident not improving much with therapy, very painful and only ambulating 4 feet per notes from yesterday. Talked to Renita Siddiqui CNP, she will come by tomorrow to see resident on TCU.
--- NOTE | 2025-09-16 10:41 | CON.PCM_ITS ---
Consult Date of Consult: 09/16/25 Cici is a 89-year-old female S/Pleft trochanteric nail fixation status post femoral Subtrochanteric fracture DOI 09/05/25 and DOS 09/06/[address] Watts. Patient had a fall when her foot caught on a coffee table and resulted in hip fracture. 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, chronic renal disease, and paroxysmal atrial fibrillation Reason for Consult Received call from Sade in TCU regarding patient. Concern for not progressing as expected in regards to mobility and continued pain. Currently working with PT. No new injuries or falls. Inquiring about repeat x-ray. Reviewed imaging and labs from 09/16/25 and note increasing BUN and CR, on Allopurinal. ORders fro femur xray and uric acid level today Please notify Dr. Salazar of most recent BUN and Cr, ok to wait until after uric acid obtained. Collaborated case with Dr. Watts. Assessment & Plan Assessment/Plan (1) Status post-operative repair of hip fracture: (2) Closed left hip fracture: PLAN: Plan Review of femur x-rays from today's visit shows no acute fracture, hardware is intact. Collaborated with Dr. Watts on date of visit. Uric acid slightly elevated at 6.2. Will round on patient in TCU tomorrow This document has been transcribed using [employer] dictation software. There may be incorrect words, spelling, and punctuation.
[2025-09-16] MEDS: Tuberculin,Purif.prot.deriv. 50 TU/ML Vial 0.1 ML ID (11:58)
[2025-09-16 13:11] LABS: Uric Acid 6.2 mg/dL (2.6-6.0)
--- NOTE | 2025-09-16 13:15 | RAD_ITS ---
PROCEDURE: FEMUR MIN 2 VIEWS 09/16/2025 REASON FOR EXAM: PAIN, S/P FRACTURE AND SURGICAL REPAIR TECHNIQUE: Procedure Code: RADFEM Modality: DX Procedure: FEMUR MIN 2 VIEWS Laterality: Left COMPARISON: 09/06/2025, 09/05/2025 FINDINGS: Status post ORIF of the left femur with intramedullary emily, single distal interlocking screw and proximal dynamic screw through the femoral head/neck. No evidence for hardware loosening or failure. Comminuted intertrochanteric/proximal femoral shaft fracture cleft still visible. No evidence for new acute fracture or dislocation. Mild-moderate left hip arthrosis. Mild-moderate tricompartmental arthrosis of the left knee, with medial and lateral chondrocalcinosis. Atherosclerotic vascular calcifications. RAD/Femur Min 2 Views IMPRESSION: ORIF of the left femur with intact appearing hardware. Proximal left femur fracture cleft still visible. No evidence for superimposed acute abnormality. Reading Location: [id number]
[2025-09-16] MEDS: Insulin Glargine-YFGN 100 UNIT/ML Pen 14 UNIT SC (21:32)
[2025-09-16] MEDS: CARBOXYMETHYLCELLULOSE SODIUM 15 ML OPHTH DROPS 1 DRP EACH EYE (21:33)
[2025-09-17 08:00] VITALS: BP 146/44; PULSE 69; RESP 14; TEMP 36.8; O2SAT 98
[2025-09-17] MEDS: Calcium Carb/Vitamin D 1 TABLET Tablet PO (08:23)
[2025-09-17] MEDS: APIXABAN 2.5 MG TABLET (WCH) PO ×2 (08:27→22:05)
[2025-09-17] MEDS: Senna/Docusate Sodium 1 Tablet 2 TABLET PO ×2 (08:28→22:04)
--- NOTE | 2025-09-17 11:38 | PCM.PN.ORT ---
Subjective Subjective Cici is a pleasant 89-year-old female s/p left trochanteric nail fixation 09/06/2025 status post femoral Subtrochanteric fracture 09/05/2025. Patient had a fall when her foot caught on a coffee table and resulted in hip fracture. Patient has been in TCU and participating actively in PT and OT. Was notified yesterday that patient is having continued pain of the left leg, taking as needed oxycodone which does help with symptoms. Repeat x-ray was complete and collaborated with Dr. Watts with no evidence of hardware failure. Reports difficulty with weightbearing, using wheelchair or recliner for transfers, he is attempting to walk with walker but does not feel like she is making much progression. 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, chronic renal disease, and paroxysmal atrial fibrillation Objective Data Objective Data Vital Signs: Vital Signs Temp Pulse Resp BP Pulse Ox O2 Del Method 98.2 F 69 14 146/44 H 98 Room Air 09/17/25 08:00 09/17/25 08:00 09/17/25 08:00 09/17/25 08:00 09/17/25 08:00 09/16/25 10:00 Oxygen Delivery Method Room Air Weight: 159 lb 6 oz Body Mass Index (BMI) 29.1 Intake & Output: Intake and Output for Last 24 Hours 09/15/25 09/16/25 09/17/25 23:59 23:59 23:59 Intake Total 462 / 462 840 / 840 125 / 125 Output Total 550 / 550 Balance 462 / 462 840 / 840 -425 / -425 Lab / Micro Data Attestation: I reviewed the patient's lab results. 09/16/25 05:15 09/16/25 05:15 Labs: Laboratory Results - last 24 hr 09/16/25 05:15: Uric Acid 6.2 H 09/16/25 12:05: POC Glucose 226 H 09/16/25 16:37: POC Glucose 212 H 09/16/25 21:30: POC Glucose 189 H 09/17/25 05:47: POC Glucose 137 H Micro: Microbiology 09/09/25 11:59 Urine, Clean Catch Urine Culture - Final Culture exhibits no growth. Radiography Diagnostic Testing: Radiology Impression Femur X-Ray 09/16/25 13:15 IMPRESSION: ORIF of the left femur with intact appearing hardware. Proximal left femur fracture cleft still visible. No evidence for superimposed acute abnormality. Reading Location: [facility] Physical Exam Narrative General General: Yes no acute distress Neurologic: Yes alert and Yes oriented x3 Psychologic: Yes reasonable and appropriate Left Hip Date of injury: 09/05/25 Date of Surgery: 09/06/25 Skin/Wound: Yes CDI and Yes healing Contralateral Normal: Yes HIP: Dressing to left hip site is clean, dry and intact, no drainage noted, no ecchymosis visible. There is moderate edema of the thigh and into the popliteal fossa, mild edema to lower leg. Patient reports increased pain with certain seated positions, positive Homans with aggravation of symptoms to popliteal and posterior thigh region Full range of motion of left ankle, range of motion of knee 0 to 90 degrees, limited range of motion of the hip in all directions secondary to pain and stiffness. Assessment & Plan Assessment/Plan (1) Status post-operative repair of hip fracture: PLAN: Continue with PT/OT as tolerated. weightbearing as tolerated with use of walker. Reviewed use of pain medications for moderate pain for better overall symptom control Discussed plan for ultrasound to rule out DVT Reviewed any concerning signs and symptoms to seek evaluation for increased redness or pain to incision site, streaking, drainage, fever, chills or other concerns Patient aware of plan for follow-up in Ortho office 2 weeks postsurgery for evaluation and staple removal This document has been transcribed using [place] dictation software. There may be incorrect words, spelling, and punctuation. (2) Subtrochanteric fracture of left femur: QUALIFIERS: Encounter type: initial encounter Fracture type: closed Fracture alignment: displaced Qualified Code(s): S72.22XA - Displaced subtrochanteric fracture of left femur, initial encounter for closed fracture (3) Left leg swelling: PLAN: Stat duplex ultrasound ordered, pending results Continue Eliquis as ordered, activity as tolerated PLAN: Plan Collaborated case with Dr. Watts Duplex US complete, negative for DVT
--- NOTE | 2025-09-17 15:24 | NURSING ---
Dressing to left hip changed as ordered. No drainage and no redness noted to surgical incision sites. Andrés are intact. Patient tolerated task well. No further needs at this time. Call light within reach.
--- NOTE | 2025-09-17 17:51 | NURSING ---
Small reddened rash area noted to patient left back/shoulder area. Patient itching area. Updated Dr Salazar. New order entered by Dr. Salazar for Hydrocortisone crm.
[2025-09-17 18:02] VITALS: BP 148/63; PULSE 81
[2025-09-17 22:05] VITALS: RESP 18
[2025-09-17] MEDS: Insulin Glargine-YFGN 100 UNIT/ML Pen 14 UNIT SC (22:05)
[2025-09-17] MEDS: CARBOXYMETHYLCELLULOSE SODIUM 15 ML OPHTH DROPS 1 DRP EACH EYE (22:06)
[2025-09-18 09:23] VITALS: BP 133/65; PULSE 75; RESP 18; TEMP 36.6; O2SAT 95
[2025-09-18] MEDS: Calcium Carb/Vitamin D 1 TABLET Tablet PO (09:28)
[2025-09-18] MEDS: APIXABAN 2.5 MG TABLET (WCH) PO ×2 (09:28→22:15)
[2025-09-18] MEDS: Senna/Docusate Sodium 1 Tablet 2 TABLET PO (09:32)
--- NOTE | 2025-09-18 15:42 | CHAPLAIN ---
Type of Pastoral Visit ___ Initial Visit _x__ Follow-up Visit ___ On-call Visit ___ General Patient Visit ___ Spiritual Assessment ___ Family Conference ___ Bereavement ___ Rapid Response ___ Code Blue ___ Other (describe below) Pastoral Care Referral From _x__ Patient ___ Family ___ Nurse ___ Physician ___ Engine Hostler ___ Embalmer Apprentice ___ Other (describe below) Sacrament/Intervention _x__ Active listening ___ Anointing ___ Gnosticism ___ Bereavement ___ Communion ___ Lelo exploration ___ ___ Life review ___ Prayer ___ Reconciliation ___ Sacrament of Sick ___ Supportive presence ___ Wedding ___ Other (describe below) Pastoral Comments patient not feeling well and had to stop her therapy session today; pt welcomes a greeting and a prayer in this short visit
--- NOTE | 2025-09-18 16:25 | RAD_ITS ---
PROCEDURE: ABDOMEN SINGLE VIEW 09/18/2025 REASON FOR EXAM: NAUSEA/VOMITING. TECHNIQUE: Procedure Code: RADABD Modality: DX Procedure: ABDOMEN SINGLE VIEW COMPARISON: Comparison study dated 09/09/2025 FINDINGS: A large amount of stool and gas is present throughout a an nondistended colon. The patient appears to be constipated. No abnormally dilated gas-filled loops of small bowel are seen. No free intraperitoneal air is seen. Please note the free intraperitoneal air can not be obscured on a supine view. Psoas muscles and renal outlines are partially obscured by overlying bowel gas and fecal material within colon. There are radiopaque wires projected over the left upper abdominal quadrant which are similar when compared to the prior exam. Surgical clips are seen in the gallbladder fossa. Calcification of the splenic artery and iliac vessels are noted. No gross organomegaly is noted. Mild degenerative disease of the lumbar spine is noted. Mild degenerative osteoarthritic changes are seen involving both hips. The radiopaque hardware involving the left femur appears to be intact and in satisfactory position without evidence of fracture or loosening. Please note that the most distal portion is not included on this study. There is a benign-appearing 5 mm calcific density projected over the right humeral head which is similar when compared to the prior exam. RAD/Abdomen Single View IMPRESSION: The patient appears to be constipated. There is no colonic ileus or bowel obst ruction. Reading Location: [id number]
--- NOTE | 2025-09-18 16:25 | RAD_ITS ---
EXAM: XR Lumbosacral Spine, 4 or 5 Views CLINICAL INDICATION: LEFT LUMBAR RADICULOPATHY. TECHNIQUE: Frontal, lateral and bilateral oblique views of the lumbar spine. COMPARISON: No relevant prior studies available. FINDINGS: VERTEBRAE: Mild multilevel endplate degenerative change of the visualized spine. Mild facet arthropathy of L3-S1. No acute fracture. Normal alignment. SACRUM/COCCYX: Unremarkable as visualized. No acute fracture. DISC SPACES: No acute findings. No significant narrowing. SOFT TISSUES: Unremarkable. VASCULATURE: Scattered calcified atherosclerotic disease of aorta. RAD/L/S Spine Min 4 Views IMPRESSION: Degenerative changes as above. Reading Location: [id number]
--- NOTE | 2025-09-18 16:35 | PCM.PN.ORT ---
Subjective Subjective Received call from daughter, Araceli, in regards to concern for continued pain and difficulty with ambulation. Concern for adequate pain control and inquiring if patient needs CAT scan of the leg. Reports nausea and vomiting related to the medications and does not feel her mother is getting adequate pain control at this time. Objective Data Objective Data Vital Signs: Vital Signs Temp Pulse Resp BP Pulse Ox O2 Del Method 97.9 F 75 18 133/65 H 95 Room Air 09/18/25 09:23 09/18/25 09:23 09/18/25 09:23 09/18/25 09:23 09/18/25 09:23 09/18/25 10:00 Oxygen Delivery Method Room Air Weight: 159 lb 6 oz Body Mass Index (BMI) 29.1 Intake & Output: Intake and Output for Last 24 Hours 09/16/25 09/17/25 09/18/25 23:59 23:59 23:59 Intake Total 840 / 840 365 / 365 976 / 976 Output Total 550 / 550 Balance 840 / 840 -185 / -185 976 / 976 Lab / Micro Data 09/16/25 05:15 09/16/25 05:15 Labs: Laboratory Results - last 24 hr 09/17/25 16:24: POC Glucose 142 H 09/17/25 21:13: POC Glucose 140 H 09/18/25 06:02: POC Glucose 169 H 09/18/25 11:19: POC Glucose 200 H Micro: Microbiology 09/09/25 11:59 Urine, Clean Catch Urine Culture - Final Culture exhibits no growth. Assessment & Plan Assessment/Plan (1) Post-operative pain: PLAN: Plan Call x 8 minutes with daughter, reassurance provided. Will contact TCU regarding any updates in patient condition, collaborate with Dr. Watts and/or Dr. Salazar and will contact daughter back. Discussed with nurse Ivelisse on TCU. Patient states new onset of low back pain during today and nausea vomiting after pain medications. Dr. Salazar has been in to assess and will be performing a workup to include labs, UA with C&S, x-ray imaging of the abdomen and lumbar spine. Dr. Salazar is ordered multiple medications for better symptom control. I returned the call to Araceli with updates of plan for care and she is in agreement with current plan for pain control and further eval. Reassurance regarding x-ray imaging of the leg from 2 days ago did not show any evidence of hardware failure or change in alignment of fracture. Updated Dr. Borruso. Charles is aware rounding will occur early next week for eval of surgical wounds, staple removal.
[2025-09-18 17:03] LABS: Anion Gap 15 (5-15); BUN 71 mg/dL (4-19); BUN/Creat Ratio 30.9 RATIO (10-20); Calcium,Total 9.7 mg/dL (7.6-11.0); Carbon Dioxide 22.2 mmol/L (21.0-32.0); Chloride 99 mmol/L (98-108); Estimated Creatinine Clearance 15.74 ml/min (50-250); Glucose 106 mg/dL (70-99); Potassium 4.7 mmol/L (3.3-5.1)
[2025-09-18] MEDS: MethylPREDNISolone DosePak 4 MG BOX PO ×2 (17:18→22:16)
[2025-09-18 18:46] LABS: Hematocrit 31.9 % (37-47); Hemoglobin 10.3 g/dL (12.0-15.0); Immature Granulocytes Count 0.040 X10^3/uL (0.0-0.0); Mean Corp Hgb Conc 32.3 g/dL (32-36); Mean Corpuscular Volume 92.5 fL (81-99); Mean Platelet Vol. 10.4 fl (6.2-12.0); NRBC Flagged by Analyzer 0 % (0-5); Platelet Count 378 K/mm3 (150-450); RBC Distribution Width CV 15.9 % (11.6-14.6); RBC Distribution Width SD 53.3 fl (35.1-43.9); Red Blood Count 3.45 M/mm3 (4.2-5.4); White Blood Count 11.4 K/mm3 (4.4-11.0)
[2025-09-18] MEDS: Magnesium Citrate 300 ML PO (19:45)
[2025-09-18] MEDS: CARBOXYMETHYLCELLULOSE SODIUM 15 ML OPHTH DROPS 1 DRP EACH EYE (22:16)
--- NOTE | 2025-09-18 23:46 | NURSING ---
Patient straight cath'd for UA, C&S. Patient tolerated well. Results pending.
[2025-09-18 23:58] LABS: Mucous, Urine 0 SEEN /hpf (<or=2+); Squamous Epithelial Cells - UA 0 SEEN /hpf (5-10)
[2025-09-19 00:12] LABS: Color, Urine Yellow (Yellow); Glucose, Dipstick Normal (Normal); Ketone-Dipstick Negative (Negative); Leukocyte Esterase-Dipstick 100 /ul (Negative); Nitrite-Dipstick Negative (Negative); Occult Blood-Urine 10 /ul (Negative); Protein-Dipstick 100 mg/dl (Negative); Specific Gravity, Urine 1.010 (1.002-1.030); Urine Bilirubin Dipstick Negative (Negative)
[2025-09-19 01:19] LABS: Red Blood Cells-Urine 0-5 SEEN /hpf (0-5)
[2025-09-19 09:09] VITALS: BP 110/48; PULSE 65; RESP 18; TEMP 36.6; O2SAT 99
[2025-09-19] MEDS: MethylPREDNISolone DosePak 4 MG BOX PO ×4 (09:10→21:18)
[2025-09-19] MEDS: Calcium Carb/Vitamin D 1 TABLET Tablet PO (09:12)
[2025-09-19] MEDS: APIXABAN 2.5 MG TABLET (WCH) PO ×2 (09:13→21:21)
[2025-09-19] MEDS: Senna/Docusate Sodium 1 Tablet 2 TABLET PO ×2 (09:26→21:25)
[2025-09-19] MEDS: Polyethylene Glycol 3350 17 GM PACKET PO ×2 (09:27→21:26)
--- NOTE | 2025-09-19 16:40 | RAD_ITS ---
PROCEDURE: TIBIA FIBULA 2 VIEWS 09/19/2025 REASON FOR EXAM: PAIN TECHNIQUE: Procedure Code: RADTF Modality: DX Procedure: TIBIA FIBULA 2 VIEWS Laterality: Left COMPARISON: Left femur study dated 09/16/2025 FINDINGS: Bones: Diffuse osteopenia of the osseous structures is noted. There are no obvious acute fractures or dislocations. There is an intramedullary emily and screw through the distal portion of the left femur. Surgical hoda are noted. There is no fracture or loosening of the visualized portion of the radiopaque hardware. Joints: [id number] tricompartmental osteoarthrosis is noted involving the left knee. There is calcific densities identified in the medial and lateral femoral tibial joint spaces compatible with chondrocalcinosis. Soft tissues: Soft tissue swelling of the ankle is noted. Other: Arteriosclerotic vascular disease of the vessels are noted. RAD/Tibia & Fibula 2 Views IMPRESSION: Diffuse osteopenia of the osseous structures are noted. There are no obvious acute fractures or dislocations. [id number] tricompartmental osteoarthrosis of the left knee are noted. Chondrocalcinosis of the medial femoral tibial and lateral femorotibial joints. Soft tissue swelling of the ankle is noted. Arteriosclerotic vascular disease of the vessels are noted. Reading Location: [id number]
[2025-09-19] MEDS: Insulin Glargine-YFGN 100 UNIT/ML Pen 14 UNIT SC (21:21)
[2025-09-19] MEDS: CARBOXYMETHYLCELLULOSE SODIUM 15 ML OPHTH DROPS 1 DRP EACH EYE (21:30)
[2025-09-20 05:45] VITALS: PULSE 71; RESP 16; O2SAT 95
[2025-09-20 08:39] VITALS: BP 106/33; PULSE 61; RESP 18; O2SAT 96
[2025-09-20] MEDS: MethylPREDNISolone DosePak 4 MG BOX PO ×4 (08:41→21:37)
[2025-09-20] MEDS: Senna/Docusate Sodium 1 Tablet 2 TABLET PO ×2 (08:46→21:37)
[2025-09-20] MEDS: Calcium Carb/Vitamin D 1 TABLET Tablet PO (08:47)
[2025-09-20] MEDS: Polyethylene Glycol 3350 17 GM PACKET PO ×2 (08:47→21:35)
[2025-09-20] MEDS: APIXABAN 2.5 MG TABLET (WCH) PO ×2 (08:48→21:40)
[2025-09-20] MEDS: CARBOXYMETHYLCELLULOSE SODIUM 15 ML OPHTH DROPS 1 DRP EACH EYE (21:40)
[2025-09-20] MEDS: Insulin Glargine-YFGN 100 UNIT/ML Pen 30 UNIT SC (21:41)
[2025-09-21] MEDS: MethylPREDNISolone DosePak 4 MG BOX PO ×3 (08:14→21:33)
[2025-09-21] MEDS: Calcium Carb/Vitamin D 1 TABLET Tablet PO (08:17)
[2025-09-21] MEDS: APIXABAN 2.5 MG TABLET (WCH) PO ×2 (08:18→21:32)
[2025-09-21] MEDS: Polyethylene Glycol 3350 17 GM PACKET PO (08:25)
[2025-09-21] MEDS: Senna/Docusate Sodium 1 Tablet 2 TABLET PO ×2 (08:25→21:27)
--- NOTE | 2025-09-21 09:38 | MDS.RN ---
Information for the MDS was obtained from review of the clinical record, interview of resident, staff, and direct observation of resident?s care.
[2025-09-21 10:00] VITALS: BP 158/52; PULSE 75; RESP 16; TEMP 36.7; O2SAT 95
--- NOTE | 2025-09-21 12:40 | PN.ORTHO_ITS ---
Subjective Subjective Seen and examined. Doing okay complaint of pain left thigh and leg. No fevers or chills Objective Data Objective Data Vital Signs: Vital Signs Temp Pulse Resp BP Pulse Ox O2 Del Method 98.0 F 75 16 158/52 H 95 Room Air 09/21/25 10:00 09/21/25 10:00 09/21/25 10:00 09/21/25 10:00 09/21/25 10:00 09/21/25 10:00 Oxygen Delivery Method Room Air Weight: 159 lb 6 oz Body Mass Index (BMI) 29.1 Intake & Output: Intake and Output for Last 24 Hours 09/19/25 09/20/25 09/21/25 23:59 23:59 23:59 Intake Total 942 / 942 480 / 480 480 / 480 Output Total 250 / 250 300 / 300 Balance 692 / 692 480 / 480 180 / 180 Lab / Micro Data 09/18/25 18:35 09/18/25 16:08 Labs: Laboratory Results - last 24 hr 09/20/25 16:49: POC Glucose 215 H 09/20/25 21:34: POC Glucose 290 H 09/21/25 06:11: POC Glucose 274 H 09/21/25 11:52: POC Glucose 304 H Micro: Microbiology 09/09/25 11:59 Urine, Clean Catch Urine Culture - Final Culture exhibits no growth. Physical Exam Const alert, oriented x3 and no apparent distress General Appearance: cooperative Extremity Extremity Narrative: Left hip there is some swelling compartments soft incisions are well- approximated without signs of infection [place] in place there is no drainage she is neurovascular intact left lower extremity palpable pedal pulses Assessment & Plan Assessment/Plan (1) Post-operative pain: (2) Status post-operative repair of hip fracture: (3) Subtrochanteric fracture of left femur: QUALIFIERS: Encounter type: initial encounter Fracture type: c losed Fracture alignment: displaced Qualified Code(s): S72.22XA - Displaced subtrochanteric fracture of left femur, initial encounter for closed fracture PLAN: Plan 2 weeks status post left femur cephalomedullary fixation for subtrochanteric fracture. PT OT weightbearing as tolerated I did explain that this does not mean she should be forced to put all of her weight on the left side she can put is much as she feels comfortable, she did have a comminuted subtrochanteric femur fracture, we did take x-rays intraoperatively and postoperatively without significant hardware concern. She did have a Doppler ultrasound which was negative, she does not show signs of infection on examination. She can have her hoda removed now continue to clean the incisions daily with antibacterial soap and warm water, re-x-ray left femur in 2 weeks. Call with any questions or concerns.
--- NOTE | 2025-09-21 15:26 | NURSING ---
Dr. Watts up to see patient. He gives order to remove hoda and that patient is WBAT and if she is not tolerating, she can put less weight on foot during therapy/transfers.
[2025-09-21] MEDS: Insulin Glargine-YFGN 100 UNIT/ML Pen 30 UNIT SC (21:28)
[2025-09-21] MEDS: CARBOXYMETHYLCELLULOSE SODIUM 15 ML OPHTH DROPS 1 DRP EACH EYE (21:33)
[2025-09-22 05:52] VITALS: PULSE 60; RESP 16; O2SAT 98
--- NOTE | 2025-09-22 06:17 | NURSING ---
Per Dr. Watts, hoda removed to left hip surgical sites. 11 hoda removed in total, 6 from the proximal site, 3 from the medial site, and 2 from the distal site. Patient tolerated well. No drainage observed. 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 Per Dr. Watts, continue to cleanse sites with antibacterial soap daily.
[2025-09-22] MEDS: Calcium Carb/Vitamin D 1 TABLET Tablet PO (08:00)
[2025-09-22] MEDS: MethylPREDNISolone DosePak 4 MG BOX PO ×2 (08:00→22:05)
[2025-09-22 08:12] VITALS: BP 157/49; PULSE 60; RESP 18; TEMP 36.2; O2SAT 97
--- NOTE | 2025-09-22 08:22 | NURSING ---
PT THREW UP 300CC OF GREEN FLUID AFTER SHE STARTED EATING. PRN ZOFRAN GIVEN. WILL CONTINUE TO MONITOR. RN AWARE
--- NOTE | 2025-09-22 12:21 | NURSING ---
Updated Dr. Salazar resident continues to have nausea, zofran not effective. Order to do KUB.
[2025-09-22 14:22] VITALS: BP 171/79; PULSE 60; O2SAT 99
--- NOTE | 2025-09-22 14:43 | RAD_ITS ---
PROCEDURE: ABDOMEN SINGLE VIEW 09/22/2025 REASON FOR EXAM: NAUSEA, CONSTIPATION TECHNIQUE: Procedure Code: RADABD Modality: DX Procedure: ABDOMEN SINGLE VIEW COMPARISON: None FINDINGS: Bowel gas: Unremarkable and nonspecific, there is retained stool throughout the majority of the colon. Calcifications: No suspicious calcifications overlying either renal shadow, within the pelvis, or along the expected course of either ureter. There are calcifications within the splenic artery, evidence of previous cholecystectomy Bones: Bones are diffusely demineralized. No demonstrated acute fracture or suspicious osseous lesion. A fracture in the proximal shaft of the femur has been surgically reduced and stabilized. No significant healing has occurred. Other: RAD/Abdomen Single View IMPRESSION: No acute abdominal or pelvic process, retained stool Diffuse osteopenia without acute fracture or suspicious osseous lesion. A prev iously noted fracture in the proximal left femur has been stabilized and reduced with surgical hardware. Alignment at the fract ure site is nearly anatomic but there has not been any significant healing. No hardware complication noted. Reading Location: [facility]
--- NOTE | 2025-09-22 15:09 | CHAPLAIN ---
Type of Pastoral Visit ___ Initial Visit ___ Follow-up Visit ___ On-call Visit ___ General Patient Visit ___ Spiritual Assessment ___ Family Conference ___ Bereavement ___ Rapid Response ___ Code Blue ___ Other (describe below) Pastoral Care Referral From ___ Patient ___ Family ___ Nurse ___ Physician ___ Squad Sergeant ___ Programmer Operator Numerical Control ___ Other (describe below) Sacrament/Intervention ___ Active listening ___ Anointing ___ Orthodoxy ___ Bereavement ___ Communion ___ Lelo exploration ___ ___ Life review ___ Prayer ___ Reconciliation ___ Sacrament of Sick ___ Supportive presence ___ Wedding ___ Other (describe below) Pastoral Comments patient states she had a good day yesterday and was very encouraged; pt says that today she is feeling sick and has been throwing up; staff came to take her to x-ray at this time
--- NOTE | 2025-09-22 15:58 | NURSING ---
DOUGLAS DONE, RESULTS LEFT FOR . CALLED PT DAUGHTER TO UPDATE HER ON PT. DAUGHTER STATED HER MOM DOES NOT TOLERATE PAIN MEDICINE WELL AND THROWS UP EVERY TIME. ONLY THING SHE TOLERATED WAS FENTANYL IV. STATED TO DAUGHTER IF PT NEEDS ANY KIND OF PAIN MED IV WE WILL ADDRESS IT DUE TO HER THROWING UP FROM [facility] BUT WILL SEE WHAT ORDERS GIVES FROM DOUGLAS RESULTS AND SEE IF PROBLEM RESOLES FROM THERE AND WILL KEEP HER UPDATED . DAUGHTER THANKED THIS NURSE. RN AWARE.
--- NOTE | 2025-09-22 17:38 | NURSING ---
NOTIFIED PT CANNOT KEEP MEDS DOWN AND BP IS UP. NEW ORDERS FOR SOAP SUDS, CBC W/DIFF,BMP,REPEAT STRAIGHT CATH FOR UA AND CULTURE,CIPRO 250MG BID FOR 7 DAYS,NORMAL SALINE 75 ML/HR, PHARNAGIN 25MG PRN EVERY 6HRS. RN AWARE
[2025-09-22 18:30] LABS: Hematocrit 36.3 % (37-47); Hemoglobin 11.5 g/dL (12.0-15.0); Immature Granulocytes Count 0.050 X10^3/uL (0.0-0.0); Mean Corp Hgb Conc 31.7 g/dL (32-36); Mean Corpuscular Volume 93.6 fL (81-99); Mean Platelet Vol. 10.7 fl (6.2-12.0); NRBC Flagged by Analyzer 0 % (0-5); Platelet Count 357 K/mm3 (150-450); RBC Distribution Width CV 15.8 % (11.6-14.6); RBC Distribution Width SD 54.0 fl (35.1-43.9); Red Blood Count 3.88 M/mm3 (4.2-5.4); White Blood Count 13.0 K/mm3 (4.4-11.0)
[2025-09-22] MEDS: 0.9% Normal Saline (1000mL) 1,000 ML 75 ML IV (18:38)
[2025-09-22] MEDS: 0.9% Saline Lock 10 ML Syringe IV (18:39)
--- NOTE | 2025-09-22 19:32 | NURSING ---
CALLED DAUGHTER AND UPDATED HER ON ALL NEW ORDERS. DAUGHTER THANKFUL.
[2025-09-22 19:37] LABS: Anion Gap 14 (5-15); BUN 80 mg/dL (4-19); BUN/Creat Ratio 35.9 RATIO (10-20); Calcium,Total 9.3 mg/dL (7.6-11.0); Carbon Dioxide 21.9 mmol/L (21.0-32.0); Chloride 99 mmol/L (98-108); Estimated Creatinine Clearance 16.31 ml/min (50-250); Glucose 105 mg/dL (70-99); Potassium 5.1 mmol/L (3.3-5.1)
--- NOTE | 2025-09-22 20:00 | NURSING ---
Straight catheterized patient using sterile technique per Dr. Salazar's order. 350ml of clear, yellow urine emptied from bladder. Collected urine for urinalysis and culture. Patient tolerated well. SSE performed following straight catheterization per order. Patient tolerated well. She retained 500ml of the SSE solution. Resulted in XL bowel movement, soft and formed and some liquid stool as well. Encouraged patient to continue taking stool softeners. Patient verbalized understanding.
[2025-09-22 20:04] LABS: Mucous, Urine 0 SEEN /hpf (<or=2+); Squamous Epithelial Cells - UA 0 SEEN /hpf (5-10)
[2025-09-22 20:28] LABS: Color, Urine Straw (Yellow); Glucose, Dipstick Normal (Normal); Ketone-Dipstick Negative (Negative); Leukocyte Esterase-Dipstick 100 /ul (Negative); Nitrite-Dipstick Negative (Negative); Occult Blood-Urine Negative /ul (Negative); Protein-Dipstick 100 mg/dl (Negative); Specific Gravity, Urine 1.010 (1.002-1.030); Urine Bilirubin Dipstick Negative (Negative)
[2025-09-22 20:44] LABS: Red Blood Cells-Urine 0-5 SEEN /hpf (0-5)
[2025-09-22] MEDS: Senna/Docusate Sodium 1 Tablet 2 TABLET PO (22:04)
[2025-09-22] MEDS: CARBOXYMETHYLCELLULOSE SODIUM 15 ML OPHTH DROPS 1 DRP EACH EYE (22:05)
[2025-09-22] MEDS: Insulin Glargine-YFGN 100 UNIT/ML Pen 30 UNIT SC (22:13)
--- NOTE | 2025-09-22 23:19 | NURSING ---
During HS medication administration patient asked, do I have to take all of them? I encouraged patient to take what she could. Patient reported she was feeling better after SSE results but still does not feel well enough to take all of HS medications. This nurse administered HS medications per patient's request and refused specific medications per her request, refer to eMAR. Patient was able to tolerate medications without emesis.
[2025-09-23 06:19] LABS: Hematocrit 30.3 % (37-47); Hemoglobin 9.6 g/dL (12.0-15.0); Immature Granulocytes Count 0.050 X10^3/uL (0.0-0.0); Mean Corp Hgb Conc 31.7 g/dL (32-36); Mean Corpuscular Volume 93.5 fL (81-99); Mean Platelet Vol. 11.0 fl (6.2-12.0); NRBC Flagged by Analyzer 0 % (0-5); Platelet Count 394 K/mm3 (150-450); RBC Distribution Width CV 15.8 % (11.6-14.6); RBC Distribution Width SD 54.0 fl (35.1-43.9); Red Blood Count 3.24 M/mm3 (4.2-5.4); White Blood Count 10.7 K/mm3 (4.4-11.0)
[2025-09-23 07:12] LABS: Anion Gap 12 (5-15); BUN 76 mg/dL (4-19); BUN/Creat Ratio 35.0 RATIO (10-20); Calcium,Total 8.5 mg/dL (7.6-11.0); Carbon Dioxide 24.1 mmol/L (21.0-32.0); Chloride 101 mmol/L (98-108); Estimated Creatinine Clearance 16.68 ml/min (50-250); Glucose 91 mg/dL (70-99); Potassium 4.8 mmol/L (3.3-5.1)
[2025-09-23] MEDS: MethylPREDNISolone DosePak 4 MG BOX PO (08:38)
[2025-09-23] MEDS: Calcium Carb/Vitamin D 1 TABLET Tablet PO (08:40)
[2025-09-23] MEDS: Polyethylene Glycol 3350 17 GM PACKET PO (08:42)
[2025-09-23] MEDS: Senna/Docusate Sodium 1 Tablet 2 TABLET PO (08:43)
[2025-09-23] MEDS: 0.9% Normal Saline (1000mL) 1,000 ML 75 ML IV ×2 (08:46→22:29)
[2025-09-23 10:00] VITALS: BP 140/51; PULSE 60; RESP 16; TEMP 36.6; O2SAT 97
[2025-09-23 20:00] VITALS: PULSE 64; O2SAT 99
[2025-09-23] MEDS: Insulin Glargine-YFGN 100 UNIT/ML Pen 30 UNIT SC (22:25)
[2025-09-23] MEDS: CARBOXYMETHYLCELLULOSE SODIUM 15 ML OPHTH DROPS 1 DRP EACH EYE (22:27)
[2025-09-23] MEDS: 0.9% Saline Lock 10 ML Syringe IV (22:29)
[2025-09-24 09:14] VITALS: BP 150/54; PULSE 60; RESP 12; TEMP 36.3; O2SAT 98
[2025-09-24] MEDS: Calcium Carb/Vitamin D 1 TABLET Tablet PO (09:20)
[2025-09-24] MEDS: Senna/Docusate Sodium 1 Tablet 2 TABLET PO (09:24)
[2025-09-24] MEDS: 0.9% Normal Saline (1000mL) 1,000 ML 75 ML IV (12:37)
[2025-09-24 14:10] VITALS: PULSE 72; RESP 18; O2SAT 98
--- NOTE | 2025-09-24 14:58 | CASEMGMT ---
Social Work SW completed BIMS () and PHQ-2 () for MDS assessment. Pt asked for private pay rates for TCU and [place]. SW provided with details on inclusivity and part B benefits. SW reviewed advance directives on file and DPOA is updated but HCPOA and LW are not. Asked pt to provide updated copies; if none are completed, SW can complete prior to DC. SW to ask family and follow up with this worker. Fidelina Clifford RETAIL ZONE SPECIALIST 4TH GRADE TEACHER
--- NOTE | 2025-09-24 15:29 | CHAPLAIN ---
Type of Pastoral Visit ___ Initial Visit ___ Follow-up Visit ___ On-call Visit _x__ General Patient Visit ___ Spiritual Assessment ___ Family Conference ___ Bereavement ___ Rapid Response ___ Code Blue ___ Other (describe below) Pastoral Care Referral From _x__ Patient ___ Family ___ Nurse ___ Physician ___ Frame Gate Mortiser Operator ___ Manager Application ___ Other (describe below) Sacrament/Intervention _x__ Active listening ___ Anointing ___ Mormonism ___ Bereavement ___ Communion ___ Lelo exploration ___ _x__ Life review ___ Prayer ___ Reconciliation ___ Sacrament of Sick ___ Supportive presence ___ Wedding ___ Other (describe below) Pastoral Comments
[2025-09-24 18:13] VITALS: BP 137/48; PULSE 67; O2SAT 98
[2025-09-24] MEDS: 0.9% Saline Lock 10 ML Syringe IV (21:34)
[2025-09-24] MEDS: CARBOXYMETHYLCELLULOSE SODIUM 15 ML OPHTH DROPS 1 DRP EACH EYE (21:36)
[2025-09-25] MEDS: Calcium Carb/Vitamin D 1 TABLET Tablet PO (08:20)
[2025-09-25] MEDS: Senna/Docusate Sodium 1 Tablet 2 TABLET PO (08:25)
[2025-09-25 10:00] VITALS: BP 145/66; PULSE 66; RESP 16; TEMP 36.3; O2SAT 98
[2025-09-25] MEDS: 0.9% Saline Lock 10 ML Syringe IV ×2 (12:28→21:15)
[2025-09-25] MEDS: CARBOXYMETHYLCELLULOSE SODIUM 15 ML OPHTH DROPS 1 DRP EACH EYE (20:36)
[2025-09-25] MEDS: Insulin Glargine-YFGN 100 UNIT/ML Pen 14 UNIT SC (21:16)
[2025-09-26] MEDS: Calcium Carb/Vitamin D 1 TABLET Tablet PO (07:57)
[2025-09-26 08:07] VITALS: BP 163/66; PULSE 67; RESP 18; TEMP 36.5; O2SAT 98
[2025-09-26 10:25] VITALS: PULSE 67; RESP 18; O2SAT 98
[2025-09-26] MEDS: 0.9% Saline Lock 10 ML Syringe IV ×2 (10:34→21:56)
[2025-09-26 16:00] VITALS: BP 147/51; PULSE 63; TEMP 36.1; O2SAT 99
[2025-09-26] MEDS: Insulin Glargine-YFGN 100 UNIT/ML Pen 14 UNIT SC (21:51)
[2025-09-26] MEDS: CARBOXYMETHYLCELLULOSE SODIUM 15 ML OPHTH DROPS 1 DRP EACH EYE (21:53)
[2025-09-26] MEDS: Senna/Docusate Sodium 1 Tablet 2 TABLET PO (21:54)
[2025-09-27] MEDS: Calcium Carb/Vitamin D 1 TABLET Tablet PO (07:54)
[2025-09-27 08:04] VITALS: BP 180/66; PULSE 73; RESP 18; TEMP 37; O2SAT 99
[2025-09-27 17:49] VITALS: BP 194/65; PULSE 68
[2025-09-27 19:56] VITALS: PULSE 64; RESP 16; O2SAT 98
[2025-09-27] MEDS: CARBOXYMETHYLCELLULOSE SODIUM 15 ML OPHTH DROPS 1 DRP EACH EYE (20:24)
[2025-09-27] MEDS: Insulin Glargine-YFGN 100 UNIT/ML Pen 14 UNIT SC (21:58)
[2025-09-28 05:38] VITALS: PULSE 65; RESP 16; O2SAT 100
[2025-09-28 08:22] VITALS: BP 135/38; PULSE 68; RESP 18; TEMP 36.8; O2SAT 97
[2025-09-28] MEDS: Calcium Carb/Vitamin D 1 TABLET Tablet PO (08:28)
[2025-09-28 15:24] VITALS: BP 157/74; PULSE 68; RESP 14; TEMP 36.6; O2SAT 99
[2025-09-28] MEDS: CARBOXYMETHYLCELLULOSE SODIUM 15 ML OPHTH DROPS 1 DRP EACH EYE (21:08)
[2025-09-28] MEDS: 0.9% Saline Lock 10 ML Syringe IV (21:08)
[2025-09-29 08:27] VITALS: BP 159/50; PULSE 65; RESP 16; TEMP 36.5; O2SAT 99
[2025-09-29] MEDS: 0.9% Saline Lock 10 ML Syringe IV (08:32)
[2025-09-29] MEDS: Calcium Carb/Vitamin D 1 TABLET Tablet PO (08:33)
[2025-09-29 15:48] VITALS: BMI 28.5
--- NOTE | 2025-09-29 16:11 | CHAPLAIN ---
Type of Pastoral Visit ___ Initial Visit _x__ Follow-up Visit ___ On-call Visit ___ General Patient Visit ___ Spiritual Assessment ___ Family Conference ___ Bereavement ___ Rapid Response ___ Code Blue ___ Other (describe below) Pastoral Care Referral From _x__ Patient ___ Family ___ Nurse ___ Physician ___ Glass Tinter ___ Instrument Repairer Steam Plant ___ Other (describe below) Sacrament/Intervention _x__ Active listening ___ Anointing ___ Yazidism ___ Bereavement ___ Communion ___ Lelo exploration ___ ___ Life review ___ Prayer ___ Reconciliation ___ Sacrament of Sick ___ Supportive presence ___ Wedding ___ Other (describe below) Pastoral Comments
[2025-09-29] MEDS: CARBOXYMETHYLCELLULOSE SODIUM 15 ML OPHTH DROPS 1 DRP EACH EYE (21:30)
[2025-09-29] MEDS: Insulin Glargine-YFGN 100 UNIT/ML Pen 14 UNIT SC (21:31)
[2025-09-30 06:00] LABS: Hematocrit 28.0 % (37-47); Hemoglobin 9.0 g/dL (12.0-15.0); Immature Granulocytes Count 0.030 X10^3/uL (0.0-0.0); Mean Corp Hgb Conc 32.1 g/dL (32-36); Mean Corpuscular Volume 93.6 fL (81-99); Mean Platelet Vol. 11.4 fl (6.2-12.0); NRBC Flagged by Analyzer 0 % (0-5); Platelet Count 274 K/mm3 (150-450); RBC Distribution Width CV 16.5 % (11.6-14.6); RBC Distribution Width SD 56.9 fl (35.1-43.9); Red Blood Count 2.99 M/mm3 (4.2-5.4); White Blood Count 6.6 K/mm3 (4.4-11.0)
[2025-09-30 06:29] LABS: Anion Gap 10 (5-15); BUN 45 mg/dL (4-19); BUN/Creat Ratio 20.7 RATIO (10-20); Calcium,Total 8.8 mg/dL (7.6-11.0); Carbon Dioxide 24.0 mmol/L (21.0-32.0); Chloride 106 mmol/L (98-108); Estimated Creatinine Clearance 16.68 ml/min (50-250); Glucose 115 mg/dL (70-99); Potassium 3.9 mmol/L (3.3-5.1)
[2025-09-30] MEDS: Calcium Carb/Vitamin D 1 TABLET Tablet PO (08:11)
[2025-09-30 08:31] VITALS: BP 163/59; PULSE 93; RESP 18; TEMP 36.7; O2SAT 96
[2025-09-30 10:20] VITALS: PULSE 93; RESP 18; O2SAT 96
[2025-09-30] MEDS: 0.9% Saline Lock 10 ML Syringe IV (11:46)
--- NOTE | 2025-09-30 15:59 | CASEMGMT ---
Social Work SW spoke with pt to follow up that pt is improving and approved for continued stay. pt relieved and appreciative. Pt provided SW with updated advance directives. Copies placed on chart. Fidelina Clifford WASTEWATER PROJECT ENGINEER FEEDER DRIVER
[2025-09-30 16:00] VITALS: BP 139/57; PULSE 66; RESP 15; TEMP 36.8; O2SAT 100
[2025-09-30] MEDS: Insulin Glargine-YFGN 100 UNIT/ML Pen 14 UNIT SC (22:24)
[2025-09-30] MEDS: Senna/Docusate Sodium 1 Tablet 2 TABLET PO (22:24)
[2025-09-30] MEDS: CARBOXYMETHYLCELLULOSE SODIUM 15 ML OPHTH DROPS 1 DRP EACH EYE (22:27)
[2025-10-01 05:35] LABS: Hematocrit 28.6 % (37-47); Hemoglobin 9.0 g/dL (12.0-15.0)
[2025-10-01] MEDS: Calcium Carb/Vitamin D 1 TABLET Tablet PO (07:56)
[2025-10-01] MEDS: Senna/Docusate Sodium 1 Tablet 2 TABLET PO (08:16)
[2025-10-01 08:23] VITALS: BP 170/59; PULSE 72; RESP 18; TEMP 36.5; O2SAT 97
[2025-10-01 14:00] VITALS: PULSE 72; RESP 18; O2SAT 97
[2025-10-01 15:09] VITALS: BP 130/50; PULSE 76; RESP 16; TEMP 36.3; O2SAT 98
--- NOTE | 2025-10-01 17:38 | NURSING ---
PT POSITIVE FOR BLOOD IN STOOL. NEW ORDER FROM TO CONSULT [facility]. PT UPDATED ON RESULTS AND ORDER. PT STATED OK.
[2025-10-01] MEDS: Insulin Glargine-YFGN 100 UNIT/ML Pen 14 UNIT SC (22:43)
[2025-10-01] MEDS: CARBOXYMETHYLCELLULOSE SODIUM 15 ML OPHTH DROPS 1 DRP EACH EYE (22:44)
[2025-10-02 05:54] LABS: Hematocrit 29.4 % (37-47); Hemoglobin 9.2 g/dL (12.0-15.0)
[2025-10-02 06:49] VITALS: PULSE 75; O2SAT 98
[2025-10-02] MEDS: Calcium Carb/Vitamin D 1 TABLET Tablet PO (08:23)
--- NOTE | 2025-10-02 13:34 | EX.PCM.CON.G ---
HPI Consult Data Date of Consult: 10/02/25 HPI Narrative Reason for Consultation: Anemia HPI Narrative: CONCHA WOODWARD, is a The patient is an 89-year-old woman recently status post successful surgical repair of a left femur subtrochanteric fracture. She is currently stable on existing medical therapy for her comorbidities. She reports no acute cardiac or renal symptoms. She is under observation due to worsening iron deficiency anemia, with recent hemoglobin levels around the mid-8s. She is compliant with the requirement for anticoagulation post-surgery for at least 4 weeks. Laboratory Data: Hemoglobin (Hgb): Trending in the mid-8s g/dL. Creatinine: 2.60 mg/dL. Estimated Glomerular Filtration Rate (eGFR): Stable at 17 mL/min (CKD Stage 4). Surgical Status:?Status post left femur fracture repair; successful procedure. Requires 4 weeks of post-op anticoagulation. Relevant History Details: Heart Failure with preserved Ejection Fraction (HFpEF), well-controlled. CKD Stage 4 (GFR 15-29 ml/min). Status post CABG (CHAUDHARI to LAD and diagonal; SVG to OM and RCA) 5 years ago (2019). 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) heart failure with preserved ejection fraction Kidney disease Stroke/cerebrovascular accident Atherosclerosis of coronary artery of [place] heart without angina pectoris Bilateral renal cysts STEMI (ST elevation myocardial infarction) Acute renal failure superimposed on stage 3 chronic kidney disease Paroxysmal atrial fibrillation with RVR Carotid stenosis, right Decubitus ulcer, stage II Thrombocytopenia Acute blood loss anemia Chronic renal failure, stage 3 (moderate) Benign paroxysmal positional vertigo Mild atrial enlargement, left Nonrheumatic mitral valve regurgitation Internal hemorrhoids Diverticulosis Ischemic cardiomyopathy Hypertension Diabetes Physical debility Constipation due to pain medication Gout Basal ganglia infarction Intracranial meningioma Type II diabetes mellitus Benign hypertension Home Medications ?Medication ?Instructions ?Recorded ?Last Taken ?Type aspirin 81 mg chewable tablet 81 mg PO DAILY heart 01/17/20 09/08/25 08:05 History calcium carbonate-vitamin D3 600 1 ea PO DAILY bones 01/17/20 07/26/25 History mg-125 unit tablet propylene glycol 0.6 % eye drops 1 drp ophthalmic (eye) QHS Dry Eyes 06/28/20 09/07/25 21:30 History (Systane Balance) insulin aspart U-100 100 unit/mL 7 unit subcut QAC dm 04/30/25 09/07/25 11:00 History (3 mL) subcutaneous pen rosuvastatin 5 mg tablet 5 mg PO QHS cholesterol 04/30/25 09/07/25 21:30 History insulin glargine-yfgn 100 unit/mL 14 unit subcut QHS dm 06/14/25 09/07/25 12:10 History (3 mL) subcutaneous pen carvedilol 12.5 mg tablet (Coreg) 12.5 mg PO BID heart #60 tabs 07/02/25 09/08/25 08:05 Rx furosemide 40 mg tablet 40 mg PO DAILY edema #30 tabs 07/29/25 09/08/25 10:10 Rx Prevagen 1 tab PO 1XD supplement 08/05/25 Unknown History allopurinol 100 mg tablet 100 mg PO DAILYCM gout 08/05/25 09/08/25 08:50 History amlodipine 5 mg tablet 5 mg PO QDAY HEART 08/05/25 09/08/25 10:10 History ferrous sulfate 325 mg (65 mg 325 mg PO BIDCM supplement 09/05/25 09/08/25 08:05 History iron) tablet (FeroSul) apixaban 5 mg tablet (Eliquis) 2.5 mg (1/2 x 5 mg) PO BID Blood 09/08/25 09/08/25 Rx thinner 28 days #28 tabs tramadol 25 mg tablet 25 mg PO Q6H PRN pain #7 tabs 09/08/25 Unknown Rx Allergy/AdvReac Type Severity Reaction Status Date / Time codeine AdvReac Nausea/Vom/ Verified 08/05/25 14:20 Diarrhea morphine AdvReac Nausea/Vom/ Verified 08/05/25 14:20 Diarrhea Family History Aunt Breast cancer Mother Heart disease Father Heart disease Surgical History History of cholecystectomy History of coronary artery bypass graft H/O angioplasty History of left heart catheterization tubal Social History household members: none number of children: 2 current occupational status: retired Smoking Status: Former smoker alcohol intake: never substance use type: does not use diet: diabetic caffeine: Yes Type: coffee Number of servings: 1 seatbelt use: always do you feel safe at home: Yes additional social history: 2 children adopted ROS Constitutional Constitutional: Denies fatigue, fever(s), poor appetite, weight gain or weight loss Gastrointestinal Gastrointestinal: Denies belching, bloating, change in bowel habits, change in stool character, chewing difficulty, coffee ground emesis, constipation, cramping, diarrhea, dyspepsia, dysphagia, early satiety, excessive flatus, fecal incontinence, heartburn, hematemesis, hematochezia, hemorrhoids, loose stools, melena, nausea, odynophagia, rectal bleeding, tenesmus, vomiting or weight changes Physical Exam Const alert, oriented x3, no apparent distress and healthy appearing General Appearance: cooperative GI normal to inspection, nondistended, normoactive bowel sounds, soft to palpation, non-tender and non-distended Percussion: normal to percussion Rectal Exam: deferred Lab / Micro Data 10/02/25 05:21 09/30/25 05:06 Labs: Laboratory Results - last 24 hr 10/01/25 17:15: POC Glucose 187 H 10/01/25 21:22: POC Glucose 229 H 10/02/25 05:21: Hgb 9.2 L, Hct 29.4 L 10/02/25 06:08: POC Glucose 115 H 10/02/25 11:55: POC Glucose 126 H Micro: Microbiology 10/01/25 16:00 Stool Stool Occult Blood (ROSARIO) - Final Occult Blood Positive Assessment & Plan Assessment/Plan (1) Iron deficiency anemia: (2) Atrial fibrillation: PLAN: Assessment Iron Deficiency Anemia (worsening):?Hemoglobin levels in the mid-8s. Likely multifactorial, potentially related to surgery blood loss, chronic disease, and potential ongoing sources given recent surgery/anticoagulation. Status Post Subtrochanteric Fracture Repair, Left Femur:?Patient is recovering well from successful surgery. CKD Stage 4 (eGFR 17 mL/min):?Stable renal function; need to consider this in anemia management and medication choices. HFpEF (controlled):?Stable cardiac status. Status Post CABG (5 years ago):?Remote history, currently stable. Plan Iron Deficiency Anemia: I will discuss with the patient's family if they want to consider a GI evaluation for potential bleed, especially while on anticoagulation). Initiate/Optimize iron supplementation plan (e.g., consider IV iron due to CKD/severity, pending further workup). Monitor Hgb levels closely. Portions of this note were generated using voice recognition software ([employer]). I have reviewed the contents and every effort has been made to ensure accuracy; however, inadvertent errors in grammar, spelling, punctuation, or word choice may occur, that were not noted before signing the document and should not alter the intended clinical meaning. Charges/Coding Visit Charges Inpatient E&M: [address] [facility] Init L2
[2025-10-02 15:13] VITALS: BP 138/62; PULSE 75; RESP 12; TEMP 36.4; O2SAT 95
--- NOTE | 2025-10-02 20:15 | NURSING ---
Shower provided by CONTINUOUS IMPROVEMENT LEAD x2 staff assist at this time
[2025-10-02] MEDS: Insulin Glargine-YFGN 100 UNIT/ML Pen 14 UNIT SC (22:29)
[2025-10-02] MEDS: CARBOXYMETHYLCELLULOSE SODIUM 15 ML OPHTH DROPS 1 DRP EACH EYE (22:29)
[2025-10-03 07:08] LABS: Hematocrit 29.9 % (37-47); Hemoglobin 9.3 g/dL (12.0-15.0)
[2025-10-03] MEDS: Calcium Carb/Vitamin D 1 TABLET Tablet PO (08:26)
[2025-10-03 15:12] VITALS: BP 155/65; PULSE 79; RESP 18; TEMP 36.6; O2SAT 97
[2025-10-03] MEDS: Insulin Glargine-YFGN 100 UNIT/ML Pen 14 UNIT SC (21:11)
[2025-10-03] MEDS: CARBOXYMETHYLCELLULOSE SODIUM 15 ML OPHTH DROPS 1 DRP EACH EYE (21:12)
[2025-10-03] MEDS: Senna/Docusate Sodium 1 Tablet 2 TABLET PO (21:14)
[2025-10-04 06:49] LABS: Hematocrit 29.6 % (37-47); Hemoglobin 9.4 g/dL (12.0-15.0)
[2025-10-04] MEDS: Calcium Carb/Vitamin D 1 TABLET Tablet PO (08:06)
[2025-10-04 08:16] VITALS: BP 144/64; PULSE 74; RESP 16; TEMP 35.8; O2SAT 97
[2025-10-04] MEDS: Insulin Glargine-YFGN 100 UNIT/ML Pen 14 UNIT SC (21:41)
[2025-10-04] MEDS: CARBOXYMETHYLCELLULOSE SODIUM 15 ML OPHTH DROPS 1 DRP EACH EYE (21:42)
[2025-10-05 05:42] LABS: Hematocrit 29.9 % (37-47); Hemoglobin 9.2 g/dL (12.0-15.0)
[2025-10-05 08:17] VITALS: BP 154/68; PULSE 71; RESP 18; TEMP 36.5; O2SAT 98
--- NOTE | 2025-10-05 10:50 | NURSING ---
PT LEFT FLOOR BY BED AT 1050 FOR SCOPE WITH .
--- NOTE | 2025-10-05 13:37 | NURSING ---
PT RETURNED TO FLOOR BY BED AT 1330 FROM UPPER SCOPE. NEW ORDERS FOR 40MG PROTONIX PO TWICE A DAY FOR 3 MONTHS AND CARAFATE 1 GRAM PO TWICE A DAY FOR 4 WEEKS. FOUND GASTRIC ULCER AND DUODENAL ULCER. CAUTERIZED AREAS.
[2025-10-05 14:33] VITALS: BP 138/62; PULSE 69; RESP 16; TEMP 36.7; O2SAT 98
--- NOTE | 2025-10-05 14:38 | NURSING ---
Addendum entered by Sade Garrison 10/05/25 15:29: Call back, order for xray was placed by Dr. Watts. Updated xray, they will active the order and complete. Original Note: Called and spoke with Dr. Stefanie Gilbert's nurse. Asked about doing 2 week follow-up xray per his note. Also updated her that she has continued to have 8/10 pain with ambulation without pushing herself or always putting full weight on operative leg. They will update Dr. Watts and call back.
--- NOTE | 2025-10-05 15:40 | RAD_ITS ---
PROCEDURE: FEMUR MIN 2 VIEWS 10/05/2025 REASON FOR EXAM: POST OP Pain TECHNIQUE: Procedure Code: RADFEM Modality: DX Procedure: FEMUR MIN 2 VIEWS Laterality: Left COMPARISON: September 16, 2025 FINDINGS: Radiographs of the left femur demonstrate a left femoral intramedullary emily and screw fixation. Alignment is stable. Interval removal of surgical skin hoda. Degenerative changes of the lumbosacral spine, left sacroiliac joint, and left hip. Atheromatous disease of the femoral artery. RAD/Femur Min 2 Views IMPRESSION: Left femoral intramedullary emily and screw fixation without hardware failure. F racture fragment alignment is stable. Reading Location: [facility]
--- NOTE | 2025-10-05 19:52 | PN.TCU_ITS ---
Subjective Subjective Patient seen, examined for regulatory visit. She has no new problems, concerns, issues, complaints. Dr. Rao performed EGD today shows gastric ulcer, duodenal ulcer, Pantoprazole and Sucralfate added. Patient progressing with therapy, she feels well. Objective Data Objective Data Vital Signs: Vital Signs Temp Pulse Resp BP Pulse Ox O2 Del Method 98.0 F 69 16 138/62 H 98 Room Air 10/05/25 14:33 10/05/25 14:33 10/05/25 14:33 10/05/25 14:33 10/05/25 14:33 10/05/25 14:33 Oxygen Delivery Method Room Air Weight: 70.902 kg Body Mass Index (BMI) 28.5 Intake & Output: Intake and Output for Last 24 Hours 10/03/25 10/04/25 10/05/25 23:59 23:59 23:59 Intake Total 682 / 682 600 / 600 Output Total 450 / 450 100 / 100 450 / 450 Balance 232 / 232 500 / 500 -450 / -450 Lab / Micro Data 10/05/25 05:17 09/30/25 05:06 Labs: Laboratory Results - last 24 hr 10/04/25 21:17: POC Glucose 199 H 10/05/25 05:17: Hgb 9.2 L, Hct 29.9 L 10/05/25 05:55: POC Glucose 98 10/05/25 17:37: POC Glucose 145 H Micro: Microbiology 10/01/25 16:00 Stool Stool Occult Blood (ROSARIO) - Final Occult Blood Positive 09/22/25 19:54 Urine, Catheterized Urine Culture - Final Proteus mirabilis 09/18/25 23:44 Urine, Catheterized Urine Culture - Final Proteus mirabilis 09/09/25 11:59 Urine, Clean Catch Urine Culture - Final Culture exhibits no growth. Physical Exam Const alert General Appearance: cooperative HEENT normocephalic Eyes PERRL and EOMs intact bilaterally Neck supple, no JVD and no carotid bruits Resp normal respiratory effort, normal air movement and clear to auscultation bilaterally Cardio regular rate and regular rhythm GI normal to inspection, nondistended, normoactive bowel sounds, non-tender and non-distended Extremity normal capillary refill General Extremity: Negative for edema Skin no rashes or lesions noted General Skin Exam: no breakdown Psych affect normal Appearance: appropriate Assessment & Plan Assessment/Plan (1) Debility: (2) Closed left hip fracture: (3) Type 2 diabetes mellitus with hyperglycemia: (4) Essential (primary) hypertension: (5) Chronic heart failure with preserved ejection fraction (HFpEF): (6) Coronary artery disease: (7) HLD (hyperlipidemia): QUALIFIERS: Hyperlipidemia type: unspecified Qualified Code(s): E 78.5 - Hyperlipidemia, unspecified (8) Pulmonary hypertension, unspecified: (9) Anemia in chronic kidney disease: (10) CKD (chronic kidney disease) stage 4, GFR 15-29 ml/min: (11) Atrial fibrillation: (12) Gout: (13) Iron deficiency anemia: PLAN: Plan 89 year old female with below past medical history hospitalized for left hip fracture, underwent long cephalomedullary nail fixation of left femur 09/06/[address] Watts, postoperative course complicated by acute blood loss anemia requiring transfusion, admitted to TCU with debility, here for rehabilitation, strengthening, prior to discharge home alone. * Debility - PT/OT. * Pain - Tylenol 1000mg q8, Oxycodone 2.5mg q4 prn pain (6-10). * Bowel - Miralax 17gm bid, senna/colace 2 tablets bid, Magnesium citrate 300mL daily prn. * Adult immunization - Administer pneumonia vaccine, covid vaccine, flu vaccine as appropriate. * DVT prophylaxis - Done with Eliquis. * Gout - Allopurinol 100mg daily. * Hypertension - Coreg 12.5mg bid, Losartan 100mg daily, Amlodipine 5mg daily. * Coronary artery disease - Coreg 12.5mg bid, Losartan 100mg daily, Aspirin 81mg daily. * Hyperlipidemia - Atorvastatin 10mg qhs. * Calcium deficiency - Calcium D 1 tablet daily. * Dry eyes - Artificial tears 1 gtt ou qhs. * Iron deficiency anemia - Ferrous sulfate 325mg bid. * Chronic HFpEF - Coreg 12.5mg bid, Losartan 100mg daily, Furosemide 40mg daily. * Diabetes Mellitus II - Glargine 14 units daily, Humalog 8 units, 3 units, 6 units, Glucagon 1mg im x 1 prn. * Skin irritation - Calmoseptine topical bid. * Tinea Cruris - Nystatin powder topical bid. * Rash - HC topical tid prn. * Nausea - Zofran 8mg q8 prn, Promethazine 25mg q6 prn. * Gastric ulcer/Duodenal ulcer - Pantoprazole 40mg bid thru 01/03/2026, Sucralfate 1gm bid thru 11/04/2025.
[2025-10-05] MEDS: CARBOXYMETHYLCELLULOSE SODIUM 15 ML OPHTH DROPS 1 DRP EACH EYE (21:40)
[2025-10-05] MEDS: Insulin Glargine-YFGN 100 UNIT/ML Pen 14 UNIT SC (21:42)
--- NOTE | 2025-10-05 21:54 | NURSING ---
PRINTER TECHNICIAN reports patient declined shower as schedule this HS, this nurse discussed with patient, patient states I don't want one tonight, I had a long day, I might take one in the morning. Denies requests. Call light and personal items within reach.
[2025-10-05 22:00] VITALS: PULSE 70; RESP 16; O2SAT 99
[2025-10-06] MEDS: Calcium Carb/Vitamin D 1 TABLET Tablet PO (08:07)
[2025-10-06 08:14] VITALS: BP 156/66; PULSE 71; RESP 18; TEMP 36.6; O2SAT 97
--- NOTE | 2025-10-06 10:46 | MDS.RN ---
Information for the MDS was obtained from review of the clinical record, interview of resident, staff, and direct observation of resident?s care.
[2025-10-06 13:50] VITALS: PULSE 71; RESP 18; O2SAT 97
[2025-10-06 15:28] VITALS: BMI 25.6
--- NOTE | 2025-10-06 15:43 | NURSING ---
OFFICE CALLED AND STATED PT X RAYS TO LT HIP LOOK GOOD. PT AWARE.
[2025-10-06] MEDS: CARBOXYMETHYLCELLULOSE SODIUM 15 ML OPHTH DROPS 1 DRP EACH EYE (22:52)
[2025-10-06] MEDS: Insulin Glargine-YFGN 100 UNIT/ML Pen 14 UNIT SC (22:53)
[2025-10-07 05:46] LABS: Hematocrit 32.4 % (37-47); Hemoglobin 10.2 g/dL (12.0-15.0); Immature Granulocytes Count 0.030 X10^3/uL (0.0-0.0); Mean Corp Hgb Conc 31.5 g/dL (32-36); Mean Corpuscular Volume 95.0 fL (81-99); Mean Platelet Vol. 10.7 fl (6.2-12.0); NRBC Flagged by Analyzer 0 % (0-5); Platelet Count 251 K/mm3 (150-450); RBC Distribution Width CV 16.6 % (11.6-14.6); RBC Distribution Width SD 57.9 fl (35.1-43.9); Red Blood Count 3.41 M/mm3 (4.2-5.4); White Blood Count 9.2 K/mm3 (4.4-11.0)
[2025-10-07 06:12] LABS: Anion Gap 13 (5-15); BUN 43 mg/dL (4-19); BUN/Creat Ratio 17.9 RATIO (10-20); Calcium,Total 9.4 mg/dL (7.6-11.0); Carbon Dioxide 24.2 mmol/L (21.0-32.0); Chloride 107 mmol/L (98-108); Estimated Creatinine Clearance 14.72 ml/min (50-250); Potassium 3.6 mmol/L (3.3-5.1)
[2025-10-07 06:21] LABS: Glucose 41 mg/dL (70-99)
--- NOTE | 2025-10-07 06:25 | NURSING ---
Addendum entered by Jewel Valles 10/07/25 06:51: Patient recheck blood sugar is 90. Patient denies any c/o at time. Addendum entered by Jewel Valles 10/07/25 06:41: Patient blood sugar recheck was 64, Glucagon 1mg IM administered per MD order, will monitor, Original Note: Lab called with glucose level of 41, patient given OJ, peanut butter and kenny crackers, will monitor,
--- NOTE | 2025-10-07 06:27 | NURSING ---
Updated Dr. Salazar via telephone of critical blood sugar value from lab of 45 mg/dL. New order for Glucagon 1 mg IM x1. Order verified via readback.
[2025-10-07] MEDS: Glucagon 1 MG/ML Syringe IM (06:35)
[2025-10-07] MEDS: Calcium Carb/Vitamin D 1 TABLET Tablet PO (08:54)
[2025-10-07 16:00] VITALS: BP 133/53; PULSE 65; RESP 16; TEMP 36.6; O2SAT 100
[2025-10-07 22:00] VITALS: PULSE 68; RESP 16; O2SAT 95
[2025-10-07] MEDS: CARBOXYMETHYLCELLULOSE SODIUM 15 ML OPHTH DROPS 1 DRP EACH EYE (22:01)
[2025-10-07] MEDS: Insulin Glargine-YFGN 100 UNIT/ML Pen 14 UNIT SC (22:02)
[2025-10-08 06:18] LABS: Anion Gap 12 (5-15); BUN 47 mg/dL (4-19); BUN/Creat Ratio 18.8 RATIO (10-20); Calcium,Total 9.0 mg/dL (7.6-11.0); Carbon Dioxide 23.9 mmol/L (21.0-32.0); Chloride 106 mmol/L (98-108); Estimated Creatinine Clearance 15.33 ml/min (50-250); Glucose 93 mg/dL (70-99); Potassium 4.0 mmol/L (3.3-5.1)
[2025-10-08 06:44] VITALS: PULSE 61; RESP 18; O2SAT 92
[2025-10-08] MEDS: Calcium Carb/Vitamin D 1 TABLET Tablet PO (07:50)
[2025-10-08 08:14] VITALS: BP 161/68; PULSE 78; RESP 18; TEMP 36.6; O2SAT 97
[2025-10-08] MEDS: Senna/Docusate Sodium 1 Tablet 2 TABLET PO (08:20)
[2025-10-08 16:00] VITALS: BP 130/55; PULSE 69; RESP 14; TEMP 36.6; O2SAT 99
[2025-10-08] MEDS: CARBOXYMETHYLCELLULOSE SODIUM 15 ML OPHTH DROPS 1 DRP EACH EYE (21:35)
[2025-10-08] MEDS: Insulin Glargine-YFGN 100 UNIT/ML Pen 14 UNIT SC (21:38)
[2025-10-09 06:35] LABS: Anion Gap 12 (5-15); BUN 51 mg/dL (4-19); BUN/Creat Ratio 18.5 RATIO (10-20); Calcium,Total 9.0 mg/dL (7.6-11.0); Carbon Dioxide 23.2 mmol/L (21.0-32.0); Chloride 106 mmol/L (98-108); Estimated Creatinine Clearance 13.98 ml/min (50-250); Glucose 82 mg/dL (70-99); Potassium 4.4 mmol/L (3.3-5.1)
--- NOTE | 2025-10-09 07:36 | US_ITS ---
PROCEDURE: KIDNEY AND BLADDER 10/09/2025 REASON FOR EXAM: ACUTE ON CHRONIC KIDNEY INJURY TECHNIQUE: Procedure Code: USKI Modality: US Procedure: KIDNEY AND BLADDER COMPARISON: Prior study dated June 15, 2025. FINDINGS: Kidneys: Normal size and cortical thickening of the right kidney. Mild left renal atrophy with thinning of the cortex measuring 0.9 cm. [place]: No hydronephrosis. Cysts or Masses: 1.6 cm 1.2 cm 1.3 cm cyst in the upper pole of the left kidney. Other: None RIGHT Kidney Size: 9.2 cm x 5.6 cm x 3.9 cm Cortical Thickness (if discernible): 11 mm (>6mm is normal) LEFT Kidney Size: 8.2 cm x 4 cm x 3.8 cm Cortical Thickness (if discernible): 9 mm (>6mm is normal) The urinary bladder is not completely distended. There is evidence of diffuse bladder wall thickening. US/Kidney and Bladder IMPRESSION: Mild left renal atrophy. Findings suggestive of a 1.6 cm 1.2 cm 1.3 cm cyst in the upper pole of the lef t kidney. Bladder wall thickening. Reading Location: [place] [id number]
[2025-10-09 09:05] VITALS: BP 145/54; PULSE 74; RESP 15; TEMP 36.8; O2SAT 98
[2025-10-09] MEDS: Calcium Carb/Vitamin D 1 TABLET Tablet PO (09:07)
[2025-10-09 15:34] VITALS: PULSE 72; RESP 18; O2SAT 98
[2025-10-09 17:14] LABS: Creatinine, Urine (random) 98.00 mg/dL (28.00-217.00)
[2025-10-09] MEDS: Insulin Glargine-YFGN 100 UNIT/ML Pen 14 UNIT SC (21:53)
[2025-10-09] MEDS: CARBOXYMETHYLCELLULOSE SODIUM 15 ML OPHTH DROPS 1 DRP EACH EYE (21:58)
[2025-10-10 06:37] LABS: Anion Gap 14 (5-15); BUN 49 mg/dL (4-19); BUN/Creat Ratio 19.2 RATIO (10-20); Calcium,Total 9.5 mg/dL (7.6-11.0); Carbon Dioxide 22.3 mmol/L (21.0-32.0); Chloride 105 mmol/L (98-108); Estimated Creatinine Clearance 15.03 ml/min (50-250); Glucose 110 mg/dL (70-99); Potassium 4.9 mmol/L (3.3-5.1)
[2025-10-10] MEDS: Calcium Carb/Vitamin D 1 TABLET Tablet PO (08:21)
[2025-10-10 08:35] VITALS: BP 158/61; PULSE 71; RESP 16; TEMP 36.6; O2SAT 97
[2025-10-10 15:05] VITALS: BP 152/72; PULSE 68; RESP 14; TEMP 36.3; O2SAT 98
[2025-10-10] MEDS: Insulin Glargine-YFGN 100 UNIT/ML Pen 14 UNIT SC (22:53)
[2025-10-10] MEDS: CARBOXYMETHYLCELLULOSE SODIUM 15 ML OPHTH DROPS 1 DRP EACH EYE (22:53)
[2025-10-10 23:10] VITALS: PULSE 71; RESP 17; O2SAT 98
[2025-10-11 05:42] VITALS: PULSE 70; RESP 16; O2SAT 98
[2025-10-11 08:45] VITALS: BP 160/64; PULSE 75; RESP 16; TEMP 36.7; O2SAT 100
[2025-10-11] MEDS: Calcium Carb/Vitamin D 1 TABLET Tablet PO (08:50)
[2025-10-11 16:00] VITALS: BP 152/72; PULSE 68; RESP 14; TEMP 36.3; O2SAT 98
[2025-10-11 18:40] VITALS: BP 164/50; PULSE 79
[2025-10-11] MEDS: CARBOXYMETHYLCELLULOSE SODIUM 15 ML OPHTH DROPS 1 DRP EACH EYE (21:59)
[2025-10-11] MEDS: Insulin Glargine-YFGN 100 UNIT/ML Pen 14 UNIT SC (22:03)
[2025-10-12 08:33] VITALS: BP 164/67; PULSE 80; RESP 17; TEMP 36.3; O2SAT 99
[2025-10-12] MEDS: Calcium Carb/Vitamin D 1 TABLET Tablet PO (08:36)
[2025-10-12 10:00] VITALS: RESP 16; O2SAT 99
--- NOTE | 2025-10-12 12:56 | PCM.CONS.R ---
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 Nephrology consulted in view of elevated creatinine. Patient has known history of chronic kidney disease with baseline creatinine ranging around 2 to 2.5 mg/dL. Reviewed recent creatinine trends since admission, September 05, creatinine on admission 2.1, serum creatinine peak 2.7 on 10/09, last labs on October 10 creatinine 2.54. Patient does not need daily lab work. Will monitor serum creatinine periodically. Urine protein creatinine ratio 1783 mg/g in June 2025. Kidney ultrasound from 10/09/2025 no hydronephrosis, urinary bladder not completely distended, evidence diffuse bladder wall thickening, cyst upper pole left kidney 1.6 x 1.2 x 1.3 cm. Kidney ultrasound June 2025 no hydronephrosis (renal ultrasound June 2022: Left renal cyst 2.1 x 1.6 x 1.6 cm); patient has been seen by urology in past. Blood pressure is acceptable. Patient is nonoliguric. Kidney function stable and near baseline, volume status appears compensated and will continue furosemide 40 mg daily and losartan as ordered. Further orders forthcoming as hospitalization evolves, thank you for allowing us to participate in the care of Ms. Sosa. Patient will follow-up in [place] office after hospital discharge, we will arrange for appointment. HPI Consult Data Date of Consult: 10/12/25 HPI Narrative HPI Narrative: CONCHA SOSA, is a 89 F with past medical history significant for combined systolic and diastolic heart failure preserved EF (55%), CKD stage IV, chronic normocytic anemia, hypertension, hyperlipidemia, diabetes mellitus type 2 who presented to [facility] ER on September 05 after she sustained a fall, found to have left hip fracture and was subsequently admitted. Patient underwent repair of left hip fracture on September 06. Patient is currently in TCU unit receiving therapy/rehab. Nephrology consulted in view of elevated creatinine. Patient has known history of chronic kidney disease stage IV with baseline creatinine ranging around 2 to 2.5 mg/dL range. Patient was last seen in our office on August 13, [address] Phillips. Kidney function stable, at baseline at that time. Patient does tend to have some fluctuation in serum creatinine secondary to volume status. Patient reports appetite has been good. Patient denies any recent nausea, vomiting or diarrhea. Denies any issues with urination. [facility] Medical History Chronic kidney disease Pulmonary hypertension, unspecified 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) heart failure with preserved ejection fraction Kidney disease Stroke/cerebrovascular accident Atherosclerosis of coronary artery of [place] heart without angina pectoris Bilateral renal cysts STEMI (ST elevation myocardial infarction) Acute renal failure superimposed on stage 3 chronic kidney disease Paroxysmal atrial fibrillation with RVR Carotid stenosis, right Decubitus ulcer, stage II Thrombocytopenia Acute blood loss anemia Chronic renal failure, stage 3 (moderate) Benign paroxysmal positional vertigo Mild atrial enlargement, left Nonrheumatic mitral valve regurgitation Internal hemorrhoids Diverticulosis Ischemic cardiomyopathy Hypertension Diabetes Physical debility Constipation due to pain medication Gout Basal ganglia infarction Intracranial meningioma Type II diabetes mellitus Benign hypertension Home Medications ?Medication ?Instructions ?Recorded ?Last Taken ?Type aspirin 81 mg chewable tablet 81 mg PO DAILY heart 01/17/20 09/08/25 08:05 History calcium carbonate-vitamin D3 600 1 ea PO DAILY bones 01/17/20 07/26/25 History mg-125 unit tablet insulin glargine-yfgn 100 unit/mL 14 unit subcut QHS dm 06/14/25 09/07/25 12:10 History (3 mL) subcutaneous pen carvedilol 12.5 mg tablet (Coreg) 12.5 mg PO BID heart #60 tabs 07/02/25 10/05/25 Rx furosemide 40 mg tablet 40 mg PO DAILY edema #30 tabs 07/29/25 10/04/25 Rx allopurinol 100 mg tablet 100 mg PO DAILYCM gout 08/05/25 09/08/25 08:50 History amlodipine 5 mg tablet 5 mg PO QDAY HEART 08/05/25 10/05/25 History ferrous sulfate 325 mg (65 mg 325 mg PO BIDCM supplement 09/05/25 10/04/25 History iron) tablet (FeroSul) atorvastatin 10 mg tablet (Lipitor) 10 mg PO QHS 10/05/25 10/04/25 History insulin lispro 100 unit/mL 8 unit subcut .qam 12/01/25 Unknown History subcutaneous pen (Humalog KwikPen (U-100) Insulin) losartan 100 mg tablet (Cozaar) 100 mg PO DAILY 10/05/25 10/05/25 History Allergy/AdvReac Type Severity Reaction Status Date / Time codeine AdvReac Nausea/Vom/ Verified 10/05/25 11:05 Diarrhea morphine AdvReac Nausea/Vom/ Verified 10/05/25 11:05 Diarrhea Family History Aunt Breast cancer Mother Heart disease Father Heart disease Surgical History History of cholecystectomy History of coronary artery bypass graft H/O angioplasty History of left heart catheterization tubal Social History household members: none number of children: 2 current occupational status: retired Smoking Status: Former smoker alcohol intake: never substance use type: does not use diet: diabetic caffeine: Yes Type: coffee Number of servings: 1 seatbelt use: always do you feel safe at home: Yes additional social history: 2 children adopted ROS ROS Narrative As in HPI, otherwise negative Physical Exam Narrative Alert and oriented x 3, no apparent distress S1, S2, RRR lungs sound clear. No wheezes, rhonchi or rales. On room air Abdomen soft, nontender No edema right leg. Trace nonpitting edema left lower leg Lab / Micro Data 10/07/25 05:13 10/10/25 06:01 Labs: Laboratory Results - last 24 hr 10/11/25 18:19: POC Glucose 303 H 10/11/25 22:03: POC Glucose 286 H 10/12/25 05:50: POC Glucose 132 H 10/12/25 11:06: POC Glucose 206 H
[2025-10-12] MEDS: CARBOXYMETHYLCELLULOSE SODIUM 15 ML OPHTH DROPS 1 DRP EACH EYE (22:37)
[2025-10-12] MEDS: Insulin Glargine-YFGN 100 UNIT/ML Pen 14 UNIT SC (22:38)
[2025-10-13 07:52] VITALS: BP 173/73; PULSE 80; RESP 16; TEMP 36.6; O2SAT 98
[2025-10-13] MEDS: Calcium Carb/Vitamin D 1 TABLET Tablet PO (07:58)
--- NOTE | 2025-10-13 14:34 | CASEMGMT ---
Social Work SW phoned dtr to provide update on pt's progress. Left detailed VM with update. SW informed dtr that pt is progressing well and not ready for DC yet. Unsure of the DC recommendation as home is dynamic and pt is not currently dynamic. Is pt going to be safe to return home alone - hire TOP EXECUTIVE or have a ST respite stay in [place]. SW offered to discuss options. Will continue to follow. Fidelina Clifford GUEST RELATIONS ASSOCIATE TRANSIT MECHANIC
[2025-10-13 15:02] VITALS: BMI 26.0
[2025-10-13] MEDS: Hydrocortisone 2.5% Crm 1 APPLIC TOPICAL ×2 (16:18→21:48)
[2025-10-13 17:47] VITALS: BP 178/75; PULSE 85
[2025-10-13] MEDS: CARBOXYMETHYLCELLULOSE SODIUM 15 ML OPHTH DROPS 1 DRP EACH EYE (21:48)
[2025-10-13] MEDS: Insulin Glargine-YFGN 100 UNIT/ML Pen 14 UNIT SC (21:50)
[2025-10-14] MEDS: Calcium Carb/Vitamin D 1 TABLET Tablet PO (09:20)
[2025-10-14] MEDS: Hydrocortisone 2.5% Crm 1 APPLIC TOPICAL ×3 (09:24→22:20)
[2025-10-14 16:00] VITALS: BP 165/64; PULSE 78; RESP 16; TEMP 36.4; O2SAT 98
[2025-10-14] MEDS: CARBOXYMETHYLCELLULOSE SODIUM 15 ML OPHTH DROPS 1 DRP EACH EYE (22:20)
[2025-10-14] MEDS: Insulin Glargine-YFGN 100 UNIT/ML Pen 14 UNIT SC (22:21)
[2025-10-15] MEDS: Calcium Carb/Vitamin D 1 TABLET Tablet PO (08:38)
[2025-10-15 14:27] VITALS: BP 163/68; PULSE 85; RESP 16; TEMP 36.2; O2SAT 100
[2025-10-15] MEDS: CARBOXYMETHYLCELLULOSE SODIUM 15 ML OPHTH DROPS 1 DRP EACH EYE (21:45)
[2025-10-15] MEDS: Insulin Glargine-YFGN 100 UNIT/ML Pen 14 UNIT SC (21:47)
[2025-10-16] MEDS: Hydrocortisone 2.5% Crm 1 APPLIC TOPICAL ×3 (05:02→21:01)
[2025-10-16 08:45] VITALS: BP 158/72; PULSE 93; RESP 16; TEMP 36.8; O2SAT 100
[2025-10-16] MEDS: Calcium Carb/Vitamin D 1 TABLET Tablet PO (08:49)
[2025-10-16] MEDS: CARBOXYMETHYLCELLULOSE SODIUM 15 ML OPHTH DROPS 1 DRP EACH EYE (21:04)
[2025-10-16] MEDS: Insulin Glargine-YFGN 100 UNIT/ML Pen 14 UNIT SC (22:58)
[2025-10-17] MEDS: Hydrocortisone 2.5% Crm 1 APPLIC TOPICAL ×2 (05:00→21:21)
[2025-10-17 07:56] VITALS: BP 168/73; PULSE 83; RESP 16; TEMP 36.6; O2SAT 99
[2025-10-17] MEDS: Calcium Carb/Vitamin D 1 TABLET Tablet PO (08:00)
[2025-10-17 16:50] VITALS: BP 168/77; PULSE 85
[2025-10-17] MEDS: Insulin Glargine-YFGN 100 UNIT/ML Pen 14 UNIT SC (21:18)
[2025-10-17] MEDS: CARBOXYMETHYLCELLULOSE SODIUM 15 ML OPHTH DROPS 1 DRP EACH EYE (21:21)
[2025-10-18 07:56] VITALS: BP 151/78; PULSE 88; RESP 16; TEMP 36.9; O2SAT 97
[2025-10-18] MEDS: Calcium Carb/Vitamin D 1 TABLET Tablet PO (08:05)
[2025-10-18 17:14] VITALS: BP 155/72; PULSE 92
[2025-10-18] MEDS: Insulin Glargine-YFGN 100 UNIT/ML Pen 14 UNIT SC (22:35)
[2025-10-18] MEDS: CARBOXYMETHYLCELLULOSE SODIUM 15 ML OPHTH DROPS 1 DRP EACH EYE (22:37)
[2025-10-18 22:43] VITALS: BP 201/78; PULSE 106; RESP 18; TEMP 37.3; O2SAT 96
[2025-10-18 23:02] VITALS: BP 190/85
[2025-10-18 23:50] VITALS: BP 166/65; PULSE 100
[2025-10-19 00:10] LABS: Hematocrit 32.9 % (37-47); Hemoglobin 10.3 g/dL (12.0-15.0); Immature Granulocytes Count 0.020 X10^3/uL (0.0-0.0); Mean Corp Hgb Conc 31.3 g/dL (32-36); Mean Corpuscular Volume 99.4 fL (81-99); Mean Platelet Vol. 9.7 fl (6.2-12.0); NRBC Flagged by Analyzer 0 % (0-5); POSITIVE MORPHOLOGY YES; Platelet Count 257 K/mm3 (150-450); RBC Distribution Width CV 16.5 % (11.6-14.6); RBC Distribution Width SD 60.8 fl (35.1-43.9); Red Blood Count 3.31 M/mm3 (4.2-5.4); White Blood Count 6.2 K/mm3 (4.4-11.0)
[2025-10-19 00:12] LABS: Differential Indicated SCAN CRITERIA MET
[2025-10-19 00:43] LABS: BUN 34 mg/dL (4-19); BUN/Creat Ratio 15.2 RATIO (10-20); Calcium,Total 9.1 mg/dL (7.6-11.0); Carbon Dioxide 17.1 mmol/L (21.0-32.0); Estimated Creatinine Clearance 17.00 ml/min (50-250); Glucose 163 mg/dL (70-99); Potassium 4.0 mmol/L (3.3-5.1)
[2025-10-19 01:02] LABS: Anion Gap 16 (5-15); Chloride 104 mmol/L (98-108)
[2025-10-19 02:11] LABS: Mucous, Urine 0 SEEN /hpf (<or=2+); Red Blood Cells-Urine 0 SEEN /hpf (0-5); Squamous Epithelial Cells - UA 0 SEEN /hpf (5-10)
[2025-10-19 02:13] LABS: Color, Urine Yellow (Yellow); Glucose, Dipstick Normal (Normal); Ketone-Dipstick Negative (Negative); Leukocyte Esterase-Dipstick Negative /ul (Negative); Nitrite-Dipstick Negative (Negative); Occult Blood-Urine Negative /ul (Negative); Protein-Dipstick 500 mg/dl (Negative); Specific Gravity, Urine 1.020 (1.002-1.030); Urine Bilirubin Dipstick Negative (Negative)
[2025-10-19 07:03] VITALS: PULSE 61; RESP 16; O2SAT 99
[2025-10-19 08:00] VITALS: BP 134/61; PULSE 88; RESP 16; TEMP 37.1; O2SAT 98
[2025-10-19] MEDS: Calcium Carb/Vitamin D 1 TABLET Tablet PO (08:20)
[2025-10-19] MEDS: Hydrocortisone 2.5% Crm 1 APPLIC TOPICAL ×2 (08:27→21:22)
[2025-10-19 08:45] VITALS: BP 84/48
--- NOTE | 2025-10-19 11:41 | NURSING ---
Patient BP 134/61 this AM but when she got up for therapy they checked her and BP was 84/48 and they commented that patient was lethargic. Patient has been lethargic during hiv counselor Dr. Salazar is aware and patient was evaluated last night. Patient denied dizziness with therapy and recheck BP with this nurse was 132/58.
[2025-10-19 11:46] VITALS: BP 132/58
[2025-10-19] MEDS: Insulin Glargine-YFGN 100 UNIT/ML Pen 14 UNIT SC (21:22)
[2025-10-19] MEDS: CARBOXYMETHYLCELLULOSE SODIUM 15 ML OPHTH DROPS 1 DRP EACH EYE (21:23)
[2025-10-20] MEDS: Hydrocortisone 2.5% Crm 1 APPLIC TOPICAL ×3 (05:56→21:54)
[2025-10-20] MEDS: Calcium Carb/Vitamin D 1 TABLET Tablet PO (08:51)
[2025-10-20 08:58] VITALS: BP 128/59; PULSE 81; RESP 16; TEMP 36.3; O2SAT 99
[2025-10-20 11:24] VITALS: BMI 25.4
--- NOTE | 2025-10-20 14:40 | CASEMGMT ---
Social Work SW spoke with pt at bedside. Inquired about pt's perspective with rehab progress. Pt reports she is progressing each day and is proud of herself for walking from her room to the therapy gym. SW commended pt for accomplishments and progress. SW confirmed IDT agree with pt's progress. However, pt is beginning to plateau and SW wanted to discuss DC planning. SW inquired if pt felt ready to DC home alone. Pt denied; despite her progress, pt expressed not ready to be home alone. SW offered options as hiring [facility] [employer] [facility] in the home to assist or AL. Pt inquired further information on AL. SW explained details to AL - having private space but surrounded by the assistance when pt needs it and gets assistance with all IADLs. SW explained pt could stay for a month, several months or long-term. It is paid for by month to month, but pt would provide all furniture. Pt interested. SW explained IDT would recommend AL for at least through the winter months, which will provide more time for pt to improve, and make a decision if she can be home alone or less assistance. Pt to consider. SW provided resources for both private duty HHC and AL and educated to estimated costs. Pt would contact [facility] [employer] and SW will make AL referrals. SW encouraged pt to discuss options with dtr and notify this worker for assistance. SW estimating DC by the end of October, not to DC prior to . Pt agreed and appreciative. SW will continue to follow.? Fidelina Clifford ACCOUNTS PAYABLE PAYROLL COORDINATOR ZIPPER CUTTER
[2025-10-20 17:44] VITALS: BP 170/72; PULSE 91
[2025-10-20 21:45] VITALS: BP 157/82; PULSE 87
[2025-10-20] MEDS: Insulin Glargine-YFGN 100 UNIT/ML Pen 14 UNIT SC (21:48)
[2025-10-20] MEDS: CARBOXYMETHYLCELLULOSE SODIUM 15 ML OPHTH DROPS 1 DRP EACH EYE (21:49)
[2025-10-21] MEDS: Hydrocortisone 2.5% Crm 1 APPLIC TOPICAL ×2 (06:53→13:11)
[2025-10-21] MEDS: Calcium Carb/Vitamin D 1 TABLET Tablet PO (07:50)
[2025-10-21 07:55] VITALS: BP 145/73; PULSE 81; RESP 16; TEMP 36.7; O2SAT 96
--- NOTE | 2025-10-21 14:51 | CASEMGMT ---
Social Work SW received call from pt's dtr inquiring about options presented to pt for DC. SW reiterated options for [facility] or AL. Dtr stated pt and dtr are interested in AL and inquired about process. SW educated to this worker placing referrals to determine acceptance and availability, then typically the ALs complete onsite's to determine final pricing. Dtr appreciative and requesting referrals to [facility], [place] and [facility], then whoever has openings, dtr will tour. SW agreed. - SW sent referrals to all 3 ALs. Will continue to follow. Fidelina Clifford NIPPLE MAKER ELEMENTARY SECRETARY
[2025-10-21 17:39] VITALS: BP 172/81; PULSE 84
[2025-10-21] MEDS: Insulin Glargine-YFGN 100 UNIT/ML Pen 14 UNIT SC (21:30)
[2025-10-21] MEDS: CARBOXYMETHYLCELLULOSE SODIUM 15 ML OPHTH DROPS 1 DRP EACH EYE (21:31)
[2025-10-22 10:12] VITALS: BP 149/62; PULSE 79; RESP 17; TEMP 36.8; O2SAT 98
[2025-10-22] MEDS: Hydrocortisone 2.5% Crm 1 APPLIC TOPICAL ×2 (10:16→21:09)
[2025-10-22] MEDS: Calcium Carb/Vitamin D 1 TABLET Tablet PO (12:04)
[2025-10-22 21:00] VITALS: PULSE 80; O2SAT 100
[2025-10-22 21:03] VITALS: BP 145/64; PULSE 79
[2025-10-22] MEDS: CARBOXYMETHYLCELLULOSE SODIUM 15 ML OPHTH DROPS 1 DRP EACH EYE (21:08)
[2025-10-22] MEDS: Insulin Glargine-YFGN 100 UNIT/ML Pen 14 UNIT SC (21:10)
[2025-10-23 04:32] VITALS: PULSE 78; O2SAT 98
[2025-10-23 08:16] VITALS: BP 132/54; PULSE 72; RESP 18; TEMP 36.6; O2SAT 98
[2025-10-23] MEDS: Calcium Carb/Vitamin D 1 TABLET Tablet PO (08:20)
[2025-10-23] MEDS: Hydrocortisone 2.5% Crm 1 APPLIC TOPICAL ×3 (08:22→22:00)
--- NOTE | 2025-10-23 09:14 | CASEMGMT ---
Addendum entered by Fidelina Clifford 10/23/25 13:50: SW spoke with pt to confirm DC date and destination. Pt confirmed and appreciative. NOMNC provided. Original Note: Social Work SW phoned dtr to inquire about AL process. Dtr spoke with all three facilities and signed a 60 day respite room with [facility]. SW discussed setting DC date. Dtr prefers 11/03 and pt's [facility] will transport. SW confirmed and will coordinate [facility] PT/OT. Dtr appreciative. - SW notified all 3 facilities. IDT updated. 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
--- NOTE | 2025-10-23 17:01 | DS.PCM_ITS ---
Providers Date of Admission: 09/08/25 Primary Care Physician: Dr. Siena Warren MD Consultations 10/01/25 17:36 Consult: Gastroenterology Routine Consulting Provider: [facility] Reason for Consult: POSITIVE BLOOD IN STOOL EMERGENT Consult: No Notified: Yes Date Notified: 10/01/25 Time Notified: 17:36 Method of Notification: Text 10/09/25 07:37 Consult: Nephrology Routine Consulting Provider: Ta Phillips Reason for Consult: Acute on chronic kidney failure. EMERGENT Consult: No MD Notified: Yes Date Notified: 10/09/25 Time Notified: 09:07 Method of Notification: Answering Service Reason For Visit: LEFT HIP FRACTURE Diagnosis Discharge Diagnosis (1) SHA (acute kidney injury): Status: Acute Code(s): N17.9 - Acute kidney failure, unspecified (2) CKD (chronic kidney disease) stage 4, GFR 15-29 ml/min: Status: Chronic Code(s): N18.4 - Chronic kidney disease, stage 4 (severe) Plan 89 year old female with below past medical history hospitalized for left hip fracture, underwent long cephalomedullary nail fixation of left femur 09/06/[address] Watts, postoperative course complicated by acute blood loss anemia requiring transfusion, admitted to TCU with debility, here for rehabilitation, strengthening, prior to discharge home alone. * Debility - PT/OT. * Pain - Tylenol 1000mg q8, Oxycodone 2.5mg q4 prn pain (6-10). * Bowel - Miralax 17gm bid, senna/colace 2 tablets bid, Magnesium citrate 300mL daily prn. * Adult immunization - Administer pneumonia vaccine, covid vaccine, flu vaccine as appropriate. * DVT prophylaxis - Done with Eliquis. * Gout - Allopurinol 100mg daily. * Hypertension - Coreg 12.5mg bid, Losartan 100mg daily, Amlodipine 5mg daily. * Coronary artery disease - Coreg 12.5mg bid, Losartan 100mg daily, Aspirin 81mg daily. * Hyperlipidemia - Atorvastatin 10mg qhs. * Calcium deficiency - Calcium D 1 tablet daily. * Dry eyes - Artificial tears 1 gtt ou qhs. * Iron deficiency anemia - Ferrous sulfate 325mg bid. * Chronic HFpEF - Coreg 12.5mg bid, Losartan 100mg daily, Furosemide 40mg daily. * Diabetes Mellitus II - Glargine 14 units daily, Humalog 8 units, 3 units, 6 units, Glucagon 1mg im x 1 prn. * Skin irritation - Calmoseptine topical bid. * Tinea Cruris - Nystatin powder topical bid. * Rash - HC topical tid prn. * Nausea - Zofran 8mg q8 prn, Promethazine 25mg q6 prn. * Gastric ulcer/Duodenal ulcer - Pantoprazole 40mg bid thru 01/03/2026, Sucralfate 1gm bid thru 11/04/2025. Medications at Discharge Home Medications aspirin 81 mg chewable tablet 81 mg PO DAILY heart 01/17/20 calcium carbonate-vitamin D3 600 mg-125 unit tablet 1 ea PO DAILY bones 01/17/20 insulin glargine-yfgn 100 unit/mL (3 mL) subcutaneous pen 14 unit subcut QHS dm 06/14/25 carvedilol 12.5 mg tablet (Coreg) 12.5 mg PO BID heart #60 tabs 07/02/25 furosemide 40 mg tablet 40 mg PO DAILY edema #30 tabs 07/29/25 allopurinol 100 mg tablet 100 mg PO DAILYCM gout 08/05/25 amlodipine 5 mg tablet 5 mg PO QDAY HEART 08/05/25 ferrous sulfate 325 mg (65 mg iron) tablet (FeroSul) 325 mg PO BIDCM supplement 09/05/25 atorvastatin 10 mg tablet (Lipitor) 10 mg PO QHS 10/05/25 insulin lispro 100 unit/mL subcutaneous pen (Humalog KwikPen (U-100) Insulin) 8 unit subcut .qam 10/05/25 losartan 100 mg tablet (Cozaar) 100 mg PO DAILY 10/05/25 Hospital Course Operations - (see below.) Procedures EGD Summary of Care Provided Minutes Spent on Discharge: 35 Hospital Course: 89 year old female with below past medical history hospitalized for left hip fracture, underwent long cephalomedullary nail fixation of left femur 09/06/[address] Watts, postoperative course complicated by acute blood loss anemia requiring transfusion, admitted to TCU with debility, here for rehabilitation, strengthening, prior to discharge home alone. 10/05/2025 Friend EGD: Impression: - Mild Schatzki ring. - Oozing gastric ulcers with pigmented material. Treated with a heater probe. - Chronic gastritis. Biopsied. - Non-bleeding duodenal ulcers with no stigmata of bleeding. Recommendation: - Discharge patient to a custodial. - Resume previous diet. - Continue present medications. - Await pathology results. - Repeat upper endoscopy in 4 months for surveillance. - Use Protonix (pantoprazole) 40 mg PO BID for 3 months. - Use sucralfate tablets 1 gram PO BID for 4 weeks. Discharge 11/03/2025 to [facility]. Weight / BMI Weight Weight: 69.4 kg Body Mass Index (BMI) 25.4 ABG / Lab / Microbiology Data 10/18/25 23:42 10/18/25 23:42 Laboratory: Laboratory Results - last 24 hr 10/22/25 16:53: POC Glucose 103 10/22/25 21:04: POC Glucose 292 H 10/23/25 06:09: POC Glucose 98 10/23/25 11:15: POC Glucose 238 H Microbiology: Microbiology 10/19/25 02:00 Urine Catheter - Catheter Urine Culture - Final Enterococcus gallinarum Enterococcus faecium Staphylococcus epidermidis 10/20/25 06:35 Nasal Secretion SARS-CoV-2 Antigen (Rapid) - Final 10/18/25 23:55 Mucosa - Nasopharyngeal Respiratory Panel (PCR) - Final 10/18/25 05:40 Nasal Secretion SARS-CoV-2 Antigen (Rapid) - Final 10/16/25 04:55 Nasal Secretion SARS-CoV-2 Antigen (Rapid) - Final 10/01/25 16:00 Stool Stool Occult Blood (ROSARIO) - Final Occult Blood Positive 09/22/25 19:54 Urine, Catheterized Urine Culture - Final Proteus mirabilis 09/18/25 23:44 Urine, Catheterized Urine Culture - Final Proteus mirabilis 09/09/25 11:59 Urine, Clean Catch Urine Culture - Final Culture exhibits no growth. D/C Instructions Please Follow Up With: Westley Watts Discharge Plan Admission Admit Date/Time: 09/08/25 16:24 Attending Provider: Raffi Salazar Chi Primary Care Provider: Siena Warren Consulting Providers: Ace Cerda; Chidi Rao; Melodie Back; Leona Ferrer; Angeli Ventura; Alan,Jayaprakas Discharge Orders/Prescriptions Prescriptions: No Action carvedilol [Coreg] 12.5 mg tablet 12.5 mg PO BID Qty: 60 6RF Rx Instructions: must administer with a meal/food amlodipine 5 mg tablet 5 mg PO QDAY allopurinol 100 mg tablet 100 mg PO DAILYCM Patient Comments: GOUT aspirin 81 MG tablet,chewable 81 mg PO DAILY calcium carbonate-vitamin D3 1 EACH tablet 1 ea PO DAILY furosemide 40 mg tablet 40 mg PO DAILY Qty: 30 0RF Rx Instructions: and as needed daily if your weight increases by 2 pounds in 1 day, or 3 pounds in 1 week. ferrous sulfate [FeroSul] 325 mg (65 mg iron) Tablet 325 mg PO BIDCM insulin glargine-yfgn 100 unit/mL (3 mL) insulin pen 14 unit subcut QHS atorvastatin [Lipitor] 10 mg tablet 10 mg PO QHS insulin lispro [Humalog KwikPen Insulin] 100 unit/mL insulin pen 8 unit subcut .qam Patient Comments: 8 units with breakfast, 3 units with lunch, 6 units with dinner losartan [Cozaar] 100 mg tablet 100 mg PO DAILY Referrals / Follow Up: Westley Watts DO [Med Staff - Active Staff, Orthopedics] Referral Note: 6 week post-op Siena Warren MD [Primary Care Provider, Internal Medicine] Disposition Disposition (needs filled in before D/C Order can be placed): Assisted Living
--- NOTE | 2025-10-23 17:01 | PCM.DC.SUM ---
Providers Date of Admission: 09/08/25 Primary Care Physician: Dr. Siena Warren MD Consultations 10/01/25 17:36 Consult: Gastroenterology Routine Consulting Provider: [facility] Reason for Consult: POSITIVE BLOOD IN STOOL EMERGENT Consult: No Notified: Yes Date Notified: 10/01/25 Time Notified: 17:36 Method of Notification: Text 10/09/25 07:37 Consult: Nephrology Routine Consulting Provider: Ta Phillips Reason for Consult: Acute on chronic kidney failure. EMERGENT Consult: No MD Notified: Yes Date Notified: 10/09/25 Time Notified: 09:07 Method of Notification: Answering Service Reason For Visit: LEFT HIP FRACTURE Diagnosis Discharge Diagnosis (1) SHA (acute kidney injury): Status: Acute Code(s): N17.9 - Acute kidney failure, unspecified (2) CKD (chronic kidney disease) stage 4, GFR 15-29 ml/min: Status: Chronic Code(s): N18.4 - Chronic kidney disease, stage 4 (severe) Plan 89 year old female with below past medical history hospitalized for left hip fracture, underwent long cephalomedullary nail fixation of left femur 09/06/[address] Watts, postoperative course complicated by acute blood loss anemia requiring transfusion, admitted to TCU with debility, here for rehabilitation, strengthening, prior to discharge home alone. Debility - PT/OT. Pain - Tylenol 1000mg q8, Oxycodone 2.5mg q4 prn pain (6-10). Bowel - Miralax 17gm bid, senna/colace 2 tablets bid, Magnesium citrate 300mL daily prn. Adult immunization - Administer pneumonia vaccine, covid vaccine, flu vaccine as appropriate. DVT prophylaxis - Done with Eliquis. Gout - Allopurinol 100mg daily. Hypertension - Coreg 12.5mg bid, Losartan 100mg daily, Amlodipine 5mg daily. Coronary artery disease - Coreg 12.5mg bid, Losartan 100mg daily, Aspirin 81mg daily. Hyperlipidemia - Atorvastatin 10mg qhs. Calcium deficiency - Calcium D 1 tablet daily. Dry eyes - Artificial tears 1 gtt ou qhs. Iron deficiency anemia - Ferrous sulfate 325mg bid. Chronic HFpEF - Coreg 12.5mg bid, Losartan 100mg daily, Furosemide 40mg daily. Diabetes Mellitus II - Glargine 14 units daily, Humalog 8 units, 3 units, 6 units, Glucagon 1mg im x 1 prn. Skin irritation - Calmoseptine topical bid. Tinea Cruris - Nystatin powder topical bid. Rash - HC topical tid prn. Nausea - Zofran 8mg q8 prn, Promethazine 25mg q6 prn. Gastric ulcer/Duodenal ulcer - Pantoprazole 40mg bid thru 01/03/2026, Sucralfate 1gm bid thru 11/04/2025. Medications at Discharge Home Medications aspirin 81 mg chewable tablet 81 mg PO DAILY heart 01/17/20 calcium carbonate-vitamin D3 600 mg-125 unit tablet 1 ea PO DAILY bones 01/17/20 insulin glargine-yfgn 100 unit/mL (3 mL) subcutaneous pen 14 unit subcut QHS dm 06/14/25 furosemide 40 mg tablet 40 mg PO DAILY edema #30 tabs 07/29/25 allopurinol 100 mg tablet 100 mg PO DAILYCM gout 08/05/25 ferrous sulfate 325 mg (65 mg iron) tablet (FeroSul) 325 mg PO BIDCM supplement 09/05/25 atorvastatin 10 mg tablet (Lipitor) 10 mg PO QHS 10/05/25 acetaminophen 500 mg tablet 1,000 mg (2 x 500 mg) PO Q8 #0 tabs 10/23/25 amlodipine 10 mg tablet 10 mg PO DAILY 30 days #30 tabs 10/23/25 atorvastatin 10 mg tablet 10 mg PO QHS 30 days #30 tabs 10/23/25 carvedilol 25 mg tablet 25 mg PO BIDCM 30 days #60 tabs 10/23/25 insulin lispro 100 unit/mL subcutaneous pen (Humalog KwikPen (U-100) Insulin) 3 unit (0.03 mL) subcut LUNCH #0 mL 10/23/25 insulin lispro 100 unit/mL subcutaneous pen (Humalog KwikPen (U-100) Insulin) 6 unit (0.06 mL) subcut DINNER #0 mL 10/23/25 insulin lispro 100 unit/mL subcutaneous pen (Humalog KwikPen (U-100) Insulin) 8 unit (0.08 mL) subcut BREAKFAST #0 mL 10/23/25 losartan 100 mg tablet 100 mg PO QHS 30 days #30 tabs 10/23/25 pantoprazole 40 mg tablet,delayed release 40 mg PO BID 30 days #60 tabs 10/23/25 sucralfate 1 gram tablet 1 g PO 0700,1600 30 days #60 tabs 10/23/25 Hospital Course Operations - (see below.) Procedures EGD Summary of Care Provided Minutes Spent on Discharge: 35 Hospital Course: 89 year old female with below past medical history hospitalized for left hip fracture, underwent long cephalomedullary nail fixation of left femur 09/06/[address] Watts, postoperative course complicated by acute blood loss anemia requiring transfusion, admitted to TCU with debility, here for rehabilitation, strengthening, prior to discharge home alone. 09/09/2025 Proteus Mirabilis UTI treated. 09/22/2025 Proteus Mirabilus UTI treated. 10/05/2025 Dr. Rao EGD: Impression: - Mild Schatzki ring. - Oozing gastric ulcers with pigmented material. Treated with a heater probe. - Chronic gastritis. Biopsied. - Non-bleeding duodenal ulcers with no stigmata of bleeding. Recommendation: - Discharge patient to a prison. - Resume previous diet. - Continue present medications. - Await pathology results. - Repeat upper endoscopy in 4 months for surveillance. - Use Protonix (pantoprazole) 40 mg PO BID for 3 months. - Use sucralfate tablets 1 gram PO BID for 4 weeks. 10/19/2025 Enterococcus Gallinarum, Enterococcus Faecium, Staph Epidermidis UTI treated. Discharge 11/03/2025 to [facility] PT[facility]. MONITOR CLOSELY FOR URINARY TRACT INFECTION, CONSIDER UROLOGY REFERRAL. Physical Exam Const alert General Appearance: cooperative HEENT normocephalic Eyes PERRL and EOMs intact bilaterally Neck supple, no JVD and no carotid bruits Resp normal respiratory effort, normal air movement and clear to auscultation bilaterally Cardio regular rate and regular rhythm GI normal to inspection, nondistended, normoactive bowel sounds, non-tender and non-distended Extremity normal capillary refill General Extremity: Negative for edema Skin no rashes or lesions noted General Skin Exam: no breakdown Psych affect normal Appearance: appropriate Weight / BMI Weight Weight: 69.4 kg Body Mass Index (BMI) 25.4 ABG / Lab / Microbiology Data 10/18/25 23:42 10/18/25 23:42 Laboratory: Laboratory Results - last 24 hr 10/22/25 16:53: POC Glucose 103 10/22/25 21:04: POC Glucose 292 H 10/23/25 06:09: POC Glucose 98 10/23/25 11:15: POC Glucose 238 H Microbiology: Microbiology 10/19/25 02:00 Urine Catheter - Catheter Urine Culture - Final Enterococcus gallinarum Enterococcus faecium Staphylococcus epidermidis 10/20/25 06:35 Nasal Secretion SARS-CoV-2 Antigen (Rapid) - Final 10/18/25 23:55 Mucosa - Nasopharyngeal Respiratory Panel (PCR) - Final 10/18/25 05:40 Nasal Secretion SARS-CoV-2 Antigen (Rapid) - Final 10/16/25 04:55 Nasal Secretion SARS-CoV-2 Antigen (Rapid) - Final 10/01/25 16:00 Stool Stool Occult Blood (ROSARIO) - Final Occult Blood Positive 09/22/25 19:54 Urine, Catheterized Urine Culture - Final Proteus mirabilis 09/18/25 23:44 Urine, Catheterized Urine Culture - Final Proteus mirabilis 09/09/25 11:59 Urine, Clean Catch Urine Culture - Final Culture exhibits no growth. D/C Instructions Discharge Activity: Return to Normal Activity, May Shower and Use Walker Weight Bearing Status: Weight bearing as tolerated Call your doctor if you observe: Fever of 101 or Higher, Inability to urinate, Inability to have a bowel movement, Shortness of breath, Dizziness, Fainting spells, Swelling in the ankles, Chest pain and Uncontrolled pain DC O2, CPAP, BIPAP Needs Home O2 Discharge instructions: No Additional Instructions: Discharge 11/03/2025 to [facility], PT[facility]OT. MONITOR CLOSELY FOR URINARY TRACT INFECTION, CONSIDER UROLOGY REFERRAL. Please Follow Up With: Westley Watts When: As scheduled. Meaningful Use Info Meaningful Use Meaningful Use Diagnoses (Choose all that apply): None applicable Discharge Plan Admission Admit Date/Time: 09/08/25 16:24 Primary Reason for Your Visit: Debility. Attending Provider: Raffi Salazar Chi Primary Care Provider: Siena Warren Consulting Providers: Ace Cerda; Chidi Rao; Melodie Back; Leona Ferrer; Angeli Ventura; Ta Phillips Instructions Additional Instructions / Restrictions: Discharge 11/03/2025 to [facility], PT/OT. MONITOR CLOSELY FOR URINARY TRACT INFECTION, CONSIDER UROLOGY REFERRAL. Discharge Orders/Prescriptions Prescriptions: New carvedilol 25 mg Tablet 25 mg PO BIDCM 30 Days Qty: 60 0RF acetaminophen 500 mg Tablet 1,000 mg PO Q8 Qty: 0 0RF amlodipine 10 mg Tablet 10 mg PO DAILY 30 Days Qty: 30 0RF insulin lispro [Humalog KwikPen Insulin] 100 unit/mL Insulin Pen 6 unit subcut DINNER Qty: 0 0RF insulin lispro [Humalog KwikPen Insulin] 100 unit/mL Insulin Pen 8 unit subcut BREAKFAST Qty: 0 0RF insulin lispro [Humalog KwikPen Insulin] 100 unit/mL Insulin Pen 3 unit subcut LUNCH Qty: 0 0RF atorvastatin 10 mg Tablet 10 mg PO QHS 30 Days Qty: 30 0RF sucralfate 1 gram Tablet 1 g PO 0700,1600 30 Days Qty: 60 0RF pantoprazole 40 mg Tablet,Delayed Release (Dr/Ec) 40 mg PO BID 30 Days Qty: 60 0RF losartan 100 mg Tablet 100 mg PO QHS 30 Days Qty: 30 0RF Continued allopurinol 100 mg tablet 100 mg PO DAILYCM Patient Comments: GOUT aspirin 81 MG tablet,chewable 81 mg PO DAILY calcium carbonate-vitamin D3 1 EACH tablet 1 ea PO DAILY furosemide 40 mg tablet 40 mg PO DAILY Qty: 30 0RF Rx Instructions: and as needed daily if your weight increases by 2 pounds in 1 day, or 3 pounds in 1 week. ferrous sulfate [FeroSul] 325 mg (65 mg iron) Tablet 325 mg PO BIDCM insulin glargine-yfgn 100 unit/mL (3 mL) insulin pen 14 unit subcut QHS atorvastatin [Lipitor] 10 mg tablet 10 mg PO QHS Discontinued carvedilol [Coreg] 12.5 mg tablet 12.5 mg PO BID Qty: 60 6RF Rx Instructions: must administer with a meal/food amlodipine 5 mg tablet 5 mg PO QDAY insulin lispro [Humalog KwikPen Insulin] 100 unit/mL insulin pen 8 unit subcut .qam Patient Comments: 8 units with breakfast, 3 units with lunch, 6 units with dinner losartan [Cozaar] 100 mg tablet 100 mg PO DAILY Referrals / Follow Up: Westley Watts DO [Med Staff - Active Staff, Orthopedics] Referral Note: 6 week post-op Siena Warren MD [Primary Care Provider, Internal Medicine] Disposition Disposition (needs filled in before D/C Order can be placed): Assisted Living
[2025-10-23] MEDS: Insulin Glargine-YFGN 100 UNIT/ML Pen 14 UNIT SC (21:57)
[2025-10-23] MEDS: CARBOXYMETHYLCELLULOSE SODIUM 15 ML OPHTH DROPS 1 DRP EACH EYE (21:57)
[2025-10-24] MEDS: Senna/Docusate Sodium 1 Tablet 2 TABLET PO (09:52)
[2025-10-24] MEDS: Calcium Carb/Vitamin D 1 TABLET Tablet PO (09:52)
[2025-10-24] MEDS: Hydrocortisone 2.5% Crm 1 APPLIC TOPICAL ×2 (09:53→22:02)
[2025-10-24 16:00] VITALS: BP 133/58; PULSE 70; RESP 16; TEMP 36.6; O2SAT 97
[2025-10-24] MEDS: CARBOXYMETHYLCELLULOSE SODIUM 15 ML OPHTH DROPS 1 DRP EACH EYE (22:02)
[2025-10-25] MEDS: Calcium Carb/Vitamin D 1 TABLET Tablet PO (07:51)
[2025-10-25] MEDS: Hydrocortisone 2.5% Crm 1 APPLIC TOPICAL ×2 (07:52→21:52)
[2025-10-25 16:00] VITALS: BP 117/48; PULSE 69; RESP 16; TEMP 36.8; O2SAT 99
[2025-10-25] MEDS: Insulin Glargine-YFGN 100 UNIT/ML Pen 14 UNIT SC (21:45)
[2025-10-25] MEDS: CARBOXYMETHYLCELLULOSE SODIUM 15 ML OPHTH DROPS 1 DRP EACH EYE (21:45)
[2025-10-26] MEDS: Hydrocortisone 2.5% Crm 1 APPLIC TOPICAL ×2 (07:30→19:56)
[2025-10-26] MEDS: Calcium Carb/Vitamin D 1 TABLET Tablet PO (07:30)
[2025-10-26 16:00] VITALS: BP 115/51; PULSE 74; RESP 14; TEMP 36.2; O2SAT 98
[2025-10-26] MEDS: CARBOXYMETHYLCELLULOSE SODIUM 15 ML OPHTH DROPS 1 DRP EACH EYE (21:57)
[2025-10-26] MEDS: Insulin Glargine-YFGN 100 UNIT/ML Pen 14 UNIT SC (21:59)
[2025-10-26 22:00] VITALS: BP 127/53; PULSE 74; RESP 16
[2025-10-27] MEDS: Hydrocortisone 2.5% Crm 1 APPLIC TOPICAL ×3 (06:14→21:20)
[2025-10-27] MEDS: Calcium Carb/Vitamin D 1 TABLET Tablet PO (08:44)
[2025-10-27 15:56] VITALS: BMI 26.2
[2025-10-27 16:00] VITALS: BP 126/78; PULSE 80; RESP 17; TEMP 36.8; O2SAT 96
[2025-10-27 21:00] VITALS: BP 128/54; PULSE 74; RESP 16; O2SAT 97
[2025-10-27] MEDS: Insulin Glargine-YFGN 100 UNIT/ML Pen 14 UNIT SC (21:16)
[2025-10-27] MEDS: CARBOXYMETHYLCELLULOSE SODIUM 15 ML OPHTH DROPS 1 DRP EACH EYE (21:18)
[2025-10-28] MEDS: Hydrocortisone 2.5% Crm 1 APPLIC TOPICAL ×2 (06:18→14:39)
[2025-10-28 08:26] VITALS: BP 118/52; PULSE 73; RESP 17; TEMP 36.8; O2SAT 98
[2025-10-28] MEDS: Calcium Carb/Vitamin D 1 TABLET Tablet PO (08:30)
[2025-10-28 08:44] VITALS: PULSE 73
[2025-10-28] MEDS: CARBOXYMETHYLCELLULOSE SODIUM 15 ML OPHTH DROPS 1 DRP EACH EYE (22:32)
[2025-10-29] MEDS: Calcium Carb/Vitamin D 1 TABLET Tablet PO (07:52)
[2025-10-29] MEDS: Hydrocortisone 2.5% Crm 1 APPLIC TOPICAL ×3 (07:54→21:27)
[2025-10-29 15:25] VITALS: BP 131/81; PULSE 84; RESP 16; TEMP 36.2; O2SAT 97
[2025-10-29 21:20] VITALS: BP 141/55; PULSE 76; RESP 16; O2SAT 98
[2025-10-29] MEDS: CARBOXYMETHYLCELLULOSE SODIUM 15 ML OPHTH DROPS 1 DRP EACH EYE (21:25)
[2025-10-29] MEDS: Insulin Glargine-YFGN 100 UNIT/ML Pen 14 UNIT SC (21:26)
[2025-10-29 21:41] VITALS: PULSE 76; RESP 16; O2SAT 98
[2025-10-30] MEDS: Hydrocortisone 2.5% Crm 1 APPLIC TOPICAL ×3 (05:54→21:34)
[2025-10-30 08:09] VITALS: BP 125/52; PULSE 82; RESP 16; TEMP 36.4; O2SAT 98
[2025-10-30] MEDS: Calcium Carb/Vitamin D 1 TABLET Tablet PO (08:13)
[2025-10-30 08:16] LABS: Hematocrit 29.2 % (37-47); Hemoglobin 9.5 g/dL (12.0-15.0); Mean Corp Hgb Conc 32.5 g/dL (32-36); Mean Corpuscular Volume 93.6 fL (81-99); Mean Platelet Vol. 10.2 fl (6.2-12.0); Platelet Count 283 K/mm3 (150-450); RBC Distribution Width CV 16.8 % (11.6-14.6); RBC Distribution Width SD 57.1 fl (35.1-43.9); Red Blood Count 3.12 M/mm3 (4.2-5.4); White Blood Count 8.2 K/mm3 (4.4-11.0)
[2025-10-30 08:59] LABS: Anion Gap 15 (7-18); BUN 65 mg/dL (4-19); BUN/Creat Ratio 17.6 RATIO (10-20); Calcium,Total 9.3 mg/dL (7.6-11.0); Carbon Dioxide 16.9 mmol/L (20.0-29.0); Chloride 106 mmol/L (96-106); Estimated Creatinine Clearance 10.44 ml/min (50-250); Glucose 185 mg/dL (70-99); Magnesium 2.3 mg/dL (1.5-2.2); Potassium 4.1 mmol/L (3.5-5.1)
[2025-10-30 17:41] VITALS: BP 141/58; PULSE 71
[2025-10-30] MEDS: CARBOXYMETHYLCELLULOSE SODIUM 15 ML OPHTH DROPS 1 DRP EACH EYE (21:25)
[2025-10-30] MEDS: Insulin Glargine-YFGN 100 UNIT/ML Pen 14 UNIT SC (21:25)
[2025-10-30 21:44] VITALS: BP 144/69; PULSE 78; RESP 18
[2025-10-31] MEDS: Hydrocortisone 2.5% Crm 1 APPLIC TOPICAL ×3 (06:02→22:14)
[2025-10-31 08:12] VITALS: BP 134/47; PULSE 70; RESP 17; TEMP 36.5; O2SAT 97
[2025-10-31] MEDS: Calcium Carb/Vitamin D 1 TABLET Tablet PO (08:15)
[2025-10-31 14:46] LABS: AST(SGOT) 12 U/L (<=31); Alanine Aminotransfer ALT/SGPT 8 U/L (<=34); Albumin, Serum 3.5 g/dL (3.4-4.8); Alkaline Phosphatase 92 U/L (35-104); Anion Gap 13 (7-18); BUN 67 mg/dL (4-19); BUN/Creat Ratio 17.6 RATIO (10-20); Calcium,Total 9.3 mg/dL (7.6-11.0); Carbon Dioxide 18.1 mmol/L (20.0-29.0); Chloride 107 mmol/L (96-106); Estimated Creatinine Clearance 10.19 ml/min (50-250); Globulin 2.4 g/dL (2.2-4.2); Glucose 177 mg/dL (70-99); Potassium 4.1 mmol/L (3.5-5.1)
[2025-10-31 22:15] VITALS: BP 137/55; PULSE 75; O2SAT 99
[2025-10-31] MEDS: Insulin Glargine-YFGN 100 UNIT/ML Pen 14 UNIT SC (22:18)
[2025-10-31] MEDS: CARBOXYMETHYLCELLULOSE SODIUM 15 ML OPHTH DROPS 1 DRP EACH EYE (22:19)
[2025-11-01] MEDS: Hydrocortisone 2.5% Crm 1 APPLIC TOPICAL ×3 (05:29→21:42)
[2025-11-01 07:53] VITALS: BP 128/66; PULSE 80; RESP 16; TEMP 36.6; O2SAT 98
[2025-11-01] MEDS: Calcium Carb/Vitamin D 1 TABLET Tablet PO (07:59)
[2025-11-01 11:37] VITALS: PULSE 77; RESP 16; O2SAT 97
--- NOTE | 2025-11-01 13:10 | NURSING ---
dr Marshall notified of pt BS 64 before lunch, OJ given and pt eating meal. rechecked in 15 minutes 81, new order to give humalog 2 units instead of 3 as scheduled. pt declined, does not want it. pt did not like her soup (barley & mushroom), she ate fruit, small mini chocolate bar and sherbert for lunch. will monitor.
[2025-11-01 21:38] VITALS: BP 127/58; PULSE 82
[2025-11-01] MEDS: Insulin Glargine-YFGN 100 UNIT/ML Pen 14 UNIT SC (21:41)
[2025-11-01] MEDS: CARBOXYMETHYLCELLULOSE SODIUM 15 ML OPHTH DROPS 1 DRP EACH EYE (21:42)
[2025-11-02 03:33] VITALS: PULSE 85; O2SAT 98
[2025-11-02] MEDS: Calcium Carb/Vitamin D 1 TABLET Tablet PO (08:15)
[2025-11-02 08:23] VITALS: BP 146/57; PULSE 75; RESP 16; TEMP 36.3; O2SAT 96
[2025-11-02] MEDS: Hydrocortisone 2.5% Crm 1 APPLIC TOPICAL ×2 (11:49→22:02)
[2025-11-02 17:49] VITALS: BP 133/56; PULSE 69
[2025-11-02 21:55] VITALS: BP 152/61; PULSE 71; RESP 16; O2SAT 98
[2025-11-02] MEDS: Insulin Glargine-YFGN 100 UNIT/ML Pen 14 UNIT SC (22:00)
[2025-11-02] MEDS: CARBOXYMETHYLCELLULOSE SODIUM 15 ML OPHTH DROPS 1 DRP EACH EYE (22:01)
[2025-11-03] MEDS: Hydrocortisone 2.5% Crm 1 APPLIC TOPICAL (06:09)
[2025-11-03 06:22] VITALS: PULSE 80; RESP 16
--- NOTE | 2025-11-03 07:42 | NURSING ---
dr Salazar notified of elevated BUN/CR on 10/31, new order to recheck this AM before DC to [facility]. then will call nephrology with labs
[2025-11-03 08:00] VITALS: BP 130/50; PULSE 69; RESP 17; TEMP 36.3; O2SAT 97
[2025-11-03] MEDS: Calcium Carb/Vitamin D 1 TABLET Tablet PO (08:05)
[2025-11-03 09:24] LABS: Anion Gap 13 (7-18); BUN 68 mg/dL (4-19); BUN/Creat Ratio 18.8 RATIO (10-20); Calcium,Total 9.2 mg/dL (7.6-11.0); Carbon Dioxide 16.9 mmol/L (20.0-29.0); Chloride 107 mmol/L (96-106); Estimated Creatinine Clearance 10.70 ml/min (50-250); Glucose 162 mg/dL (70-99); Potassium 4.4 mmol/L (3.5-5.1)
--- NOTE | 2025-11-03 10:35 | NURSING ---
Addendum entered by Tonja Guillermo 11/03/25 11:03: daughter updated on neph's orders Addendum entered by Tonja Guillermo 11/03/25 10:59: new order to DC lasix & losartan and f/u with nephrology in office to recheck labs. Original Note: Franci from nephrology notified of creatinine 3.6 & bun 68 today. she will be over to see pt today.
--- NOTE | 2025-11-03 10:48 | MDS.RN ---
dr adamson notified of pt needing scirpt for lasix sent to [facility] & returned call from daughter regarding this and reviewing DC med list.
--- NOTE | 2025-11-03 10:54 | PCM.PN.REN ---
Subjective Subjective Sitting in chair, to be discharged to [facility] facility. No complaints today. Denies any recent N/V or diarrhea. States voiding often without issues with urination. States has good appetite. Objective Data Objective Data Vital Signs: Vital Signs Temp Pulse Resp BP Pulse Ox O2 Del Method 97.4 F L 69 17 130/50 H 97 Room Air 11/03/25 08:00 11/03/25 08:00 11/03/25 08:00 11/03/25 08:00 11/03/25 08:00 11/03/25 08:00 Oxygen Delivery Method Room Air Weight: 71.412 kg Body Mass Index (BMI) 26.2 Intake & Output: Intake and Output for Last 24 Hours 11/01/25 11/02/25 11/03/25 23:59 23:59 23:59 Intake Total 942 / 942 660 / 660 240 / 240 Balance 942 / 942 660 / 660 240 / 240 Lab / Micro Data 10/30/25 07:50 11/03/25 08:13 Labs: Laboratory Results - last 24 hr 11/02/25 10:52: POC Glucose 129 H 11/02/25 16:43: POC Glucose 171 H 11/02/25 21:28: POC Glucose 180 H 11/03/25 06:14: POC Glucose 100 11/03/25 08:13: Sodium 137, Potassium 4.4, Chloride 107 H, Carbon Dioxide 16.9 L, Anion Gap 13, BUN 68 H, Creatinine 3.60 H, Estim Creat Clear Calc 10.70 L, Est GFR (MDRD) Non-Af 12 L, BUN/Creatinine Ratio 18.8, Glucose 162 H, Calcium 9.2 Micro: Microbiology 10/27/25 06:05 Nasal Secretion SARS-CoV-2 Antigen (Rapid) - Final 10/19/25 02:00 Urine Catheter - Catheter Urine Culture - Final Enterococcus gallinarum Enterococcus faecium Staphylococcus epidermidis 10/20/25 06:35 Nasal Secretion SARS-CoV-2 Antigen (Rapid) - Final 10/18/25 23:55 Mucosa - Nasopharyngeal Respiratory Panel (PCR) - Final 10/18/25 05:40 Nasal Secretion SARS-CoV-2 Antigen (Rapid) - Final 10/16/25 04:55 Nasal Secretion SARS-CoV-2 Antigen (Rapid) - Final 10/01/25 16:00 Stool Stool Occult Blood (ROSARIO) - Final Occult Blood Positive 09/22/25 19:54 Urine, Catheterized Urine Culture - Final Proteus mirabilis 09/18/25 23:44 Urine, Catheterized Urine Culture - Final Proteus mirabilis 09/09/25 11:59 Urine, Clean Catch Urine Culture - Final Culture exhibits no growth. Physical Exam Narrative Alert and oriented x 3, no apparent distress S1, S2, RRR lungs sound clear. No wheezes, rhonchi or rales. 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 Nephrology consulted in view of elevated creatinine. Patient has known history of chronic kidney disease with baseline creatinine ranging around 2 to 2.5 mg/dL. Reviewed recent creatinine trends since admission, September 05, creatinine on admission 2.1, serum creatinine peak 2.7 on 10/09, last labs on October 10 creatinine 2.54. Patient does not need daily lab work. Will monitor serum creatinine periodically. Urine protein creatinine ratio 1783 mg/g in June 2025. Kidney ultrasound from 10/09/2025 no hydronephrosis, urinary bladder not completely distended, evidence diffuse bladder wall thickening, cyst upper pole left kidney 1.6 x 1.2 x 1.3 cm. Kidney ultrasound June 2025 no hydronephrosis (renal ultrasound June 2022: Left renal cyst 2.1 x 1.6 x 1.6 cm); patient has been seen by urology in past. Blood pressure is acceptable. Patient is nonoliguric. Kidney function stable and near baseline, volume status appears compensated and will continue furosemide 40 mg daily and losartan as ordered. Further orders forthcoming as hospitalization evolves, thank you for allowing us to participate in the care of Ms. Sosa. Patient will follow-up in [place] office after hospital discharge, we will arrange for appointment. 11/03/2025; slight fluctuation in SCr trends, kidney function at baseline as of 10/18/2025 (SCr 2.26). On 10/30/2025 SCr 3.69, lasix was stopped then. On 10/31 SCr 3.78 and today SCr 3.60. Patient is on Losartan. Recommend to hold both losartan and lasix at discharge and we will see patient in [place] office within few weeks or so. Reviewed this with patient. Questions answered. Also reviewed with patient importance of increasing solute/ protein intake and adequate daily fluid intake ~1.5L/day.
[2025-11-03 11:14] VITALS: BMI 25.9
--- NOTE | 2025-11-03 12:22 | NURSING ---
Addendum entered by Tonja Guillermo 11/03/25 13:39: [facility] called back for report, report given, pt just left with son in law. Original Note: attempted to call report to Miriam Goodman to return call when she finds out if she it to take report.
== END 2025-11-03 13:35 | disposition home or self-care (01) | DRG 559 ==
PROVIDERS: Internal Medicine; Internal Medicine Nephrology; Nurse Practitioner Family; Admitting Provider Family Medicine Geriatric Medicine; PCP Internal Medicine; Referring Provider Family Medicine Geriatric Medicine; Visit Provider Family Medicine Geriatric Medicine
DX: S72.22XD Displaced subtrochanteric fracture of left femur, subsequent encounter for closed fracture with routine healing (principal); K25.4 Chronic or unspecified gastric ulcer with hemorrhage; D62 Acute posthemorrhagic anemia; N18.4 Chronic kidney disease, stage 4 (severe); I50.32 Chronic diastolic (congestive) heart failure; I13.0 Hypertensive heart and chronic kidney disease with heart failure and stage 1 through stage 4 chronic kidney disease, or unspecified chronic kidney disease; I50.42 Chronic combined systolic (congestive) and diastolic (congestive) heart failure; N17.9 Acute kidney failure, unspecified; N39.0 Urinary tract infection, site not specified; D69.6 Thrombocytopenia, unspecified; D63.1 Anemia in chronic kidney disease; B95.2 Enterococcus as the cause of diseases classified elsewhere; I27.20 Pulmonary hypertension, unspecified; E11.22 Type 2 diabetes mellitus with diabetic chronic kidney disease; I48.0 Paroxysmal atrial fibrillation; D50.9 Iron deficiency anemia, unspecified; E11.65 Type 2 diabetes mellitus with hyperglycemia; M10.9 Gout, unspecified; I25.10 Atherosclerotic heart disease of native coronary artery without angina pectoris; I25.5 Ischemic cardiomyopathy; Z79.4 Long term (current) use of insulin; E78.5 Hyperlipidemia, unspecified; W08.XXXD Fall from other furniture, subsequent encounter; M54.16 Radiculopathy, lumbar region; K29.50 Unspecified chronic gastritis without bleeding; K22.2 Esophageal obstruction; K26.9 Duodenal ulcer, unspecified as acute or chronic, without hemorrhage or perforation; B35.6 Tinea cruris; Z79.899 Other long term (current) drug therapy; Z87.891 Personal history of nicotine dependence; Z95.1 Presence of aortocoronary bypass graft; Z79.84 Long term (current) use of oral hypoglycemic drugs; Z79.82 Long term (current) use of aspirin; B96.4 Proteus (mirabilis) (morganii) as the cause of diseases classified elsewhere
CPT/HCPCS: 36415; 72110; 73552; 73590; 74018; 76770; 80048; 80053; 80061; 81001; 82274; 82570; 82962; 83735; 84100; 84300; 84550; 85014; 85018; 85025; 85027; 87077; 87086; 87088; 87186; 87633; 87811; 92507; 92523; 97110; 97116; 97162; 97166; 97530; 97535; 97802; A4216; J1610

== ENCOUNTER → 2025-09-17 | Outpatient (CLI) | payer MEDICARE, OTHER, SELFPAY ==
[2020-05-18 06:45] VITALS: BMI 31.1
--- NOTE | 2025-09-17 14:08 | VDLE_ITS ---
Reason For Study Reason For Study: Pain and swelling RIGHT LEFT CFV is compressible, spontaneous, phasic, competent GSV is normal. and demonstrates normal augmentation. CFV is compressible, spontaneous, phasic, competent, Procedure and demonstrates normal augmentation. This is a venous duplex using B-mode, color flow and FV is compressible, spontaneous, phasic, competent spectral Doppler. and demonstrates normal augmentation. Exam performed portable in patient room. POP V is compressible, spontaneous, phasic, competent The study was technically difficult. and demonstrates normal augmentation. A preliminary report was called and/or faxed to TCU T/P Trunk is compressible. RN. PTV is compressible. LT PerV is compressible. VL/Venous Duplex US, Unilateral Interpretation Summary Deep veins of the left lower extremity are patent and compressible segmentally. There is no evidence of left lower extremity deep vein thrombosis. The left great saphenous vein appears patent an d compressible segmentally. Ordering Physician: Renita Siddiqui Referring Physician: Siena Warren M.D. Performed By: Lelo Mayer RVT
== END | disposition home or self-care (01) ==
LOC: CVS 14:07
PROVIDERS: PCP Internal Medicine; Referring Provider Nurse Practitioner Family; Visit Provider Nurse Practitioner Family
DX: M79.605 Pain in left leg (principal); M79.89 Other specified soft tissue disorders
CPT/HCPCS: 93971

== ENCOUNTER 2025-10-05 10:57 | Day surgery (SDC) | payer MEDICARE, OTHER, SELFPAY ==
[2020-05-18 06:45] VITALS: BMI 31.1
[2025-10-05] VITALS (8 sets, daily range): BP systolic 95–152; BP diastolic 52–59; PULSE 68–80; RESP 16; TEMP 36.4–37.1; O2SAT 98–99; BMI 26.9
--- NOTE | 2025-10-05 11:36 | PRE.ANES_ITS ---
ASA Classification* ASA Classification ASA Classification: 3 Assessment & Plan Anesthesia* Anesthesia Assessment Anesthesia Assessment: Discussed sedation and/or anesthesia options, risks, benefits, and alternatives with patient/parents/legal guardian/POA. Questions invited. The patient/parents/legal guardian/POA seems to understand and agrees to proceed with anesthesia plan. Reviewed the physical assessment, medical history, allergy history and patient home medications list prior to surgery/procedure/anesthetic and documented any changes. Performed airway and anesthesia risk assessments. Anesthesia Type Anesthesia Type: MAC History Source History Obtained from:: Patient and Chart Anesthesia Focused Assessment* Temperature: 98.7 F Pulse Rate: 69 Blood Pressure: 152/59 Respiratory Rate: 16 Pulse Ox: 99 Oxygen Delivery Method: Room Air Airway Assessment Mouth opens: >3 cm Mallampati Score: II Teeth Condition: Missing Neck Range of motion (ROM): Limited ROM Labs Anesthesia Preop lab: CBC WBC, (4.4-11.0) 6.6 K/mm3 09/30/25, 05:06 RBC, (4.2-5.4) 2.99 M/mm3 L 09/30/25, 05:06 Hgb, (12.0-15.0) 9.2 g/dL L Today, 05:17 Hct, (37-47) 29.9 % L Today, 05:17 Plt Count, (150-450) 274 K/mm3 09/30/25, 05:06 CHEMISTRY Potassium, (3.3-5.1) 3.9 mmol/L 09/30/25, 05:06 Sodium, (133-145) 140 mmol/L 09/30/25, 05:06 Magnesium, (1.5-2.2) 2.1 mg/dL 09/05/25, 17:32 Phosphorus, (2.7-4.5) 3.7 mg/dL 07/27/25, 05:26 BUN, (4-19) 45 mg/dL H 09/30/25, 05:06 Creatinine, (0.70-1.20) 2.15 mg/dL H 09/30/25, 05:06 Glucose, (70-99) 115 mg/dL H 09/30/25, 05:06 POC Glucose, (74-106) 98 mg/dL Today, 05:55 TSH, (0.358-3.74) 1.13 uIU/mL 04/28/14, 12:35 COAG PT, (11.7-14.9) 15.2 SECONDS H 09/06/25, 06:35 Pre-Assessment Diagnosis/Proposed Procedure Planned Operative Procedure(s): EGD Anesthesia History Anesthesia History - instructional design manager: Anesthesia History - instructional design manager Hx Hospitalization Yes 01/03/20 11:18 Any Problems With Anesthesia No 09/06/25 00:19 Cholinesterase deficiency No 09/06/25 00:19 You/Your Family Experience No 09/06/25 00:19 fever (hyperthermia) with Relationship Recent Exposure to Contagious No 09/06/25 00:19 Disease Does patient have nerve No 09/06/25 00:19 stimulator Patient instructed to have device shut off --Does patient have Pacemaker No 10/05/25 11:15 or ICD? When Was Last Pacemaker Check QUESTION #4 FULL TEXT: You/Your Family Experience fever (hyperthermia) with Anesthesia Last Oral Intake Last Oral intake: Last Oral Intake NPO since 00:00 10/05/25 11:15 Meds taken in AM with sips of water? Meds patient instructed to take am of surgery PONV PONV - instructional design manager: PONV - instructional design manager Female HX of Motion Sickness HX of N/V After Surgery Non-Smoker Duration of Surgery greater than 60 minutes Number of Risk Factors PONV Score Height & Weight Height & Weight: Anesthesia: Height & Weight Height 5 ft 5 in 10/05/25 11:15 Weight: 73.3 kg 10/05/25 11:15 Body Mass Index (BMI) 26.9 10/05/25 11:15 Respiratory Assessment Respiratory Assessment - instructional design manager: Respiratory Tract Infection Hx - instructional design manager Hx Respiratory Tract Infection No 09/06/25 00:19 STOP Sleep Apnea STOP Sleep Apnea - instructional design manager: STOP Sleep Apnea - instructional design manager Hx Hypertension Yes 09/09/25 14:52 Hx Sleep Apnea No 09/08/25 16:50 CPAP No 09/06/25 15:40 BIPAP No 09/05/25 20:23 Do you snore loudly (louder than talking or can be heard Do you often feel tired/ fatigued/ sleepy during daytime? Has anyone observed you stop breathing during sleep? STOP Results QUESTION #5 FULL TEXT : Do you snore loudly (louder than talking or can be heard through closed doors)? Tobacco Use History Tobacco Use History - instructional design manager: Tobacco Use History - instructional design manager Tobacco Use Smoking Status Former smoker 09/08/25 19:45 Hx Tobacco Use No 09/08/25 16:50 Years Smoking Packs Smoked per Day Smoking Cessation Date was within the last 15 years Hx Smoking Cessation Date 12/06/1952 09/08/25 16:50 Hx Smoking Cessation Yes 09/08/25 16:50 Counseling Hematologic Medial History Hematologic Hx - instructional design manager: Hematologic Medical Hx - bolt threader Hx of Blood Transfusion Hx of Transfusion in last 3 Months Date of Last Transfusion (if within last 3 months) Ever experience any problems with transfusion(s)? Specify any problems Hx of Preganancy in last 3 Months Nurse Filling Out Transfusion & Questions: Date: Time: Patient unable to answer at this time (ie. confused, unrespo /Reproduction History /Reproductive History - instructional design manager: /Reproductive Hx- instructional design manager Hx Now Gestational Age (in weeks): EDC: Hx Hx Para Hx Section SAB No 07/13/22 15:19 Does the father of the baby or his family experience fever w Father of the baby Malignant Hypertension history comment Active Medications Active Medications: Current Medications Generic Name Dose Route Start Last Admin Trade Name Freq PRN Reason Stop Dose Admin Lactated Ringer's 1,000 mls @ 15 mls/hr 10/05/25 11:00 IV .Q48H SÁNCHEZ PFSH Medical History Chronic kidney disease Pulmonary hypertension, unspecified 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) heart failure with preserved ejection fraction Kidney disease Stroke/cerebrovascular accident Atherosclerosis of coronary artery of [place] heart without angina pectoris Bilateral renal cysts STEMI (ST elevation myocardial infarction) Acute renal failure superimposed on stage 3 chronic kidney disease Paroxysmal atrial fibrillation with RVR Carotid stenosis, right Decubitus ulcer, stage II Thrombocytopenia Acute blood loss anemia Chronic renal failure, stage 3 (moderate) Benign paroxysmal positional vertigo Mild atrial enlargement, left Nonrheumatic mitral valve regurgitation Internal hemorrhoids Diverticulosis Ischemic cardiomyopathy Hypertension Diabetes Physical debility Constipation due to pain medication Gout Basal ganglia infarction Intracranial meningioma Type II diabetes mellitus Benign hypertension Home Medications Medication Instructions Recorded Last Taken Type aspirin 81 mg chewable tablet 81 mg PO DAILY heart 09/08/25 08:05 History calcium carbonate-vitamin D3 600 1 ea PO DAILY bones 0 01/17/20 07/26/25 History mg-125 unit tablet insulin glargine-yfgn 100 unit/mL 14 unit subcut QHS d m 06/14/25 09/07/25 12:10 History (3 mL) subcutaneous pen carvedilol 12.5 mg tablet (Coreg) 12.5 mg PO BID heart #60 tabs 07/02/25 10/05/25 Rx furosemide 40 mg tablet 40 mg PO DAILY edema #30 tab s 07/29/25 10/04/25 Rx allopurinol 100 mg tablet 100 mg PO DAILYCM gout 08/0509/08/25 08:50 History amlodipine 5 mg tablet 5 mg PO QDAY HEART 08/05/25 10/05/25 History ferrous sulfate 325 mg (65 mg 325 mg PO BIDCM suppleme nt 09/05/25 10/04/25 History iron) tablet (FeroSul) atorvastatin 10 mg tablet (Lipitor) 10 mg PO QHS 10/0510/04/25 History insulin lispro 100 unit/mL 8 unit subcut .qam 10/05/25 Unknown History subcutaneous pen (Humalog KwikPen (U-100) Insulin) losartan 100 mg tablet (Cozaar) 100 mg PO DAILY 10/05/25 History Allergy/AdvReac Type Severity Reaction Status Date / Time codeine AdvReac Nausea/Vom/ Verified 10/05/25 11:05 Diarrhea morphine AdvReac Nausea/Vom/ Verified 10/05/25 11:05 Diarrhea Family History Aunt Breast cancer Mother Heart disease Father Heart disease Surgical History History of cholecystectomy History of coronary artery bypass graft H/O angioplasty History of left heart catheterization tubal Social History household members: none number of children: 2 current occupational status: retired Smoking Status: Former smoker alcohol intake: never substance use type: does not use diet: diabetic caffeine: Yes Type: coffee Number of servings: 1 seatbelt use: always do you feel safe at home: Yes additional social history: 2 children adopted Review of Systems (Anesthesia) ROS Narrative System reviewed and no additional complaints, except as documented.
--- NOTE | 2025-10-05 12:28 | HP.PCM_ITS ---
HPI - General General Date of Admission: 10/05/25 Date of Service: 10/05/25 Chief Complaint: Anemia HPI Narrative CONCHA WOODWARD, is a 89 F who presents [ CONCHA WOODWARD, is a The patient is an 89-year-old woman recently status post successful surgical repair of a left femur subtrochanteric fracture. She is currently stable on existing medical therapy for her comorbidities. She reports no acute cardiac or renal symptoms. She is under observation due to worsening iron deficiency anemia, with recent hemoglobin levels around the mid-8s. She is compliant with the requirement for anticoagulation post-surgery for at least 4 weeks. * Laboratory Data: * Hemoglobin (Hgb): Trending in the mid-8s g/dL. * Creatinine: 2.60 mg/dL. * Estimated Glomerular Filtration Rate (eGFR): Stable at 17 mL/min (CKD Stage 4). * Surgical Status: Status post left femur fracture repair; successful procedure. Requires 4 weeks of post-op anticoagulation. * Relevant History Details: * Heart Failure with preserved Ejection Fraction (HFpEF), well-controlled. * CKD Stage 4 (GFR 15-29 ml/min). * Status post CABG (CHAUDHARI to LAD and diagonal; SVG to OM and RCA) 5 years ago (2019). ] [facility] Medical History Chronic kidney disease Pulmonary hypertension, unspecified 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) heart failure with preserved ejection fraction Kidney disease Stroke/cerebrovascular accident Atherosclerosis of coronary artery of [place] heart without angina pectoris Bilateral renal cysts STEMI (ST elevation myocardial infarction) Acute renal failure superimposed on stage 3 chronic kidney disease Paroxysmal atrial fibrillation with RVR Carotid stenosis, right Decubitus ulcer, stage II Thrombocytopenia Acute blood loss anemia Chronic renal failure, stage 3 (moderate) Benign paroxysmal positional vertigo Mild atrial enlargement, left Nonrheumatic mitral valve regurgitation Internal hemorrhoids Diverticulosis Ischemic cardiomyopathy Hypertension Diabetes Physical debility Constipation due to pain medication Gout Basal ganglia infarction Intracranial meningioma Type II diabetes mellitus Benign hypertension Home Medications Medication Instructions Recorded Last Taken Type aspirin 81 mg chewable tablet 81 mg PO DAILY heart 09/08/25 08:05 History calcium carbonate-vitamin D3 600 1 ea PO DAILY bones 0 01/17/20 07/26/25 History mg-125 unit tablet insulin glargine-yfgn 100 unit/mL 14 unit subcut QHS d m 06/14/25 09/07/25 12:10 History (3 mL) subcutaneous pen carvedilol 12.5 mg tablet (Coreg) 12.5 mg PO BID heart #60 tabs 07/02/25 10/05/25 Rx furosemide 40 mg tablet 40 mg PO DAILY edema #30 tab s 07/29/25 10/04/25 Rx allopurinol 100 mg tablet 100 mg PO DAILYCM gout 08/0509/08/25 08:50 History amlodipine 5 mg tablet 5 mg PO QDAY HEART 08/05/25 10/05/25 History ferrous sulfate 325 mg (65 mg 325 mg PO BIDCM suppleme nt 09/05/25 10/04/25 History iron) tablet (FeroSul) atorvastatin 10 mg tablet (Lipitor) 10 mg PO QHS 10/0510/04/25 History insulin lispro 100 unit/mL 8 unit subcut .qam 10/05/25 Unknown History subcutaneous pen (Humalog KwikPen (U-100) Insulin) losartan 100 mg tablet (Cozaar) 100 mg PO DAILY 10/05/25 History Allergy/AdvReac Type Severity Reaction Status Date / Time codeine AdvReac Nausea/Vom/ Verified 10/05/25 11:05 Diarrhea morphine AdvReac Nausea/Vom/ Verified 10/05/25 11:05 Diarrhea Family History Aunt Breast cancer Mother Heart disease Father Heart disease Surgical History History of cholecystectomy History of coronary artery bypass graft H/O angioplasty History of left heart catheterization tubal Social History household members: none number of children: 2 current occupational status: retired Smoking Status: Former smoker alcohol intake: never substance use type: does not use diet: diabetic caffeine: Yes Type: coffee Number of servings: 1 seatbelt use: always do you feel safe at home: Yes additional social history: 2 children adopted ROS Constitutional Constitutional: Denies fatigue, fever(s), poor appetite, weight gain or weight loss Gastrointestinal Gastrointestinal: Denies belching, bloating, change in bowel habits, change in stool character, chewing difficulty, coffee ground emesis, constipation, cramping, diarrhea, dyspepsia, dysphagia, early satiety, excessive flatus, fecal incontinence, heartburn, hematemesis, hematochezia, hemorrhoids, loose stools, melena, nausea, odynophagia, rectal bleeding, tenesmus, vomiting or weight changes Vital Signs Vital Signs Vital Signs: 10/05/25 11:06 10/05/25 11:06 10/05/25 11:15 Temperature 98.7 F Temperature Source Temporal Pulse Rate 69 Respiratory Rate 16 Respiratory Pattern Normal Blood Pressure 152/59 H Blood Pressure Mean 90 Blood Pressure Source Monitor Blood Pressure Position Semi-Fowlers Blood Pressure Location Left Arm Baseline BP 152/59 Pulse Ox 99 Oxygen Delivery Method Room Air 10/05/25 11:38 Temperature 98.7 F Temperature Source Pulse Rate 69 Respiratory Rate 16 Respiratory Pattern Blood Pressure 152/59 H Blood Pressure Mean Blood Pressure Source Blood Pressure Position Blood Pressure Location Baseline BP Pulse Ox 99 Oxygen Delivery Method Room Air Weight Weight: 161 lb 9.581 oz Body Mass Index (BMI) 26.9 Physical Exam Const alert, oriented x3, no apparent distress and healthy appearing General Appearance: cooperative GI normal to inspection, nondistended, normoactive bowel sounds, soft to palpation, non-tender and non-distended Percussion: normal to percussion Rectal Exam: deferred Assessment & Plan Assessment/Plan (1) Iron deficiency anemia: PLAN: Assessment & Plan Assessment/Plan (1) Iron deficiency anemia: (2) Atrial fibrillation: PLAN: Assessment * Iron Deficiency Anemia (worsening): Hemoglobin levels in the mid-8s. Likely multifactorial, potentially related to surgery blood loss, chronic disease, and potential ongoing sources given recent surgery/anticoagulation. * Status Post Subtrochanteric Fracture Repair, Left Femur: Patient is recovering well from successful surgery. * CKD Stage 4 (eGFR 17 mL/min): Stable renal function; need to consider this in anemia management and medication choices. * HFpEF (controlled): Stable cardiac status. * Status Post CABG (5 years ago): Remote history, currently stable. Plan * Iron Deficiency Anemia: * I will discuss with the patient's family if they want to consider a GI evaluation for potential bleed, especially while on anticoagulation). * Initiate/Optimize iron supplementation plan (e.g., consider IV iron due to CKD/severity, pending further workup). * Monitor Hgb levels closely. Portions of this note were generated using voice recognition software ([employer]). I have reviewed the contents and every effort has been made to ensure accuracy; however, inadvertent errors in grammar, spelling, punctuation, or word choice may occur, that were not noted before signing the document and should not alter the intended clinical meaning.
--- NOTE | 2025-10-05 12:51 | EGD_PTH ---
PATIENT: CONCHA WOODWARD LOC: EN U#:[id number] AGE/SX: 89/F ROOM: RE10/05/[address]: Dr. Chidi Rao DO : [id number] BED: DIS: 10/05/2025 SPEC #: [id number] RECD: 10/05/25 13:02 STATUS: ANTONELLA JILLIAN #: [id number] CRYSTAL: 10/05/25 12:[address]: Chidi Rao DEPT: SURGICAL PATHOLOGY RECD BY: Darryl Brown ENTERED: 10/06/25 09:41 SP TYPE: EGD BIOPSY TASHA DR: Dr. Siena Warren MD Tissues: A - Gastric mucous membrane Procedures: Immunohistochemical Stains Special Stain Group I Surgery Specimen Level IV Iron Stain (control) HEADER OPERATION: EGD PRE-OP DIAGNOSIS: Anemia, gastric and duodenal ulcers TISSUE SUBMITTED: A- Gastric cardia biopsy MICROSCOPIC DIAGNOSIS A. 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 - Foreign material positive for iron (iron special stain) - see note. - IHC negative for H. pylori organisms Note: The iron deposits in the superficial mucosa suggest ingestion of iron-containing compounds/medication. MICROSCOPIC DESCRIPTION Slides are reviewed. All matched controls reacted appropriately. These tests were developed and their performance characteristics determined by [facility]. They may not have been cleared or approved by the [place]. Food and Drug Administration. The FDA has determined that such clearance or approval is not necessary. The above immunohistochemical markers and/or special stains have been reviewed by the Pathologist. GROSS DESCRIPTION A. Received in fixative is one container labeled with the patient's name and designated "Gastric cardia biopsy." The specimen consists of two irregular fragments of schulz tissue that measure 0.4 and 0.9 cm. The specimen is totally submitted in one cassette. NM 10/05/2025 CPT:31163,50177,37099
--- NOTE | 2025-10-05 12:56 | OP.PROVAT_ITS ---
10/05/2025 Siena Warren [address] [place] [address] Re : Upper GI endoscopy procedure for Cici Sosa Dear Dr. Warren This procedure was performed on Sunday, October 05, 2025. My impressions and recommendations are as follows: Impressions : - Mild Schatzki ring. - Oozing gastric ulcers with pigmented material. Treated with a heater probe. - Chronic gastritis. Biopsied. - Non-bleeding duodenal ulcers with no stigmata of bleeding. Recommendations : - Discharge patient to a custodial. - Resume previous diet. - Continue present medications. - Await pathology results. - Repeat upper endoscopy in 4 months for surveillance. - Use Protonix (pantoprazole) 40 mg PO BID for 3 months. - Use sucralfate tablets 1 gram PO BID for 4 weeks. My findings are described in the full procedure note, which is enclosed. If I can be of further assistance, please feel free to contact me at . Sincerely, Chidi Rao, 10/05/2025 12:56:04 PM This report has been signed electronically.
--- NOTE | 2025-10-05 12:56 | OP.EGD_ITS ---
Patient Name: Cici Sosa Procedure Date: 10/05/2025 12:30 PM Date of : 1935 Age: 89 Procedure: Upper GI endoscopy Indications: Acute post hemorrhagic anemia, Iron deficiency anemia Providers: Chidi Rao DO Medicines: Monitored Anesthesia Care Patient Profile: This is an 89 year old female. Refer to note in patient chart for documentation of history and physical. Patient has symptoms. Complications: No immediate complications. Procedure: Pre-Anesthesia Assessment: - Prior to the procedure, a History and Physical was performed, and patient medications and allergies were reviewed. The patient is competent. The risks and benefits of the procedure and the sedation options and risks were discussed with the patient. All questions were answered and informed consent was obtained. Patient identification and proposed procedure were verified by the physician in the pre-procedure area. Mental Status Examination: alert and oriented. Airway Examination: normal oropharyngeal airway and neck mobility. Respiratory Examination: clear to auscultation. CV Examination: normal. Prophylactic Antibiotics: The patient does not require prophylactic antibiotics. Prior Anticoagulants: The patient has taken no anticoagulant or antiplatelet agents except for NSAID medication. ASA Grade Assessment: II - A patient with mild systemic disease. After reviewing the risks and benefits, the patient was deemed in satisfactory condition to undergo the procedure. The anesthesia plan was to use monitored anesthesia care (MAC). Immediately prior to administration of medications, the patient was re-assessed for adequacy to receive sedatives. The heart rate, respiratory rate, oxygen saturations, blood pressure, adequacy of pulmonary ventilation, and response to care were monitored throughout the procedure. The physical status of the patient was re-assessed after the procedure. After obtaining informed consent, the endoscope was passed under direct vision. Throughout the procedure, the patient's blood pressure, pulse, and oxygen saturations were monitored continuously. The Endoscope was introduced through the mouth, and advanced to the fourth part of the duodenum. Small bowel enteroscopy was deemed necessary. The upper GI endoscopy was accomplished without difficulty. The patient tolerated the procedure well. Scope In: 12:45:34 PM Scope Out: 12:51:13 PM Total Procedure Duration Time 0 hours 5 minutes 39 seconds Findings: A mild Schatzki ring was found in the lower third of the esophagus. Many oozing linear gastric ulcers with pigmented material were found in the cardia and in the gastric body. The largest lesion was 7 mm in largest dimension. Coagulation for hemostasis using heater probe was successful. Estimated blood loss was minimal. Patchy moderate inflammation characterized by erosions, erythema and friability was found in the gastric body. Biopsies were taken with a cold forceps for histology. Biopsies were taken with a cold forceps for Helicobacter pylori testing. Verification of patient identification for the specimen was done. Estimated blood loss was minimal. Many non-bleeding linear duodenal ulcers with no stigmata of bleeding were found in the entire duodenum. Impression: - Mild Schatzki ring. - Oozing gastric ulcers with pigmented material. Treated with a heater probe. - Chronic gastritis. Biopsied. - Non-bleeding duodenal ulcers with no stigmata of bleeding. Recommendation: - Discharge patient to a [place] [facility]. - Resume previous diet. - Continue present medications. - Await pathology results. - Repeat upper endoscopy in 4 months for surveillance. - Use Protonix (pantoprazole) 40 mg PO BID for 3 months. - Use sucralfate tablets 1 gram PO BID for 4 weeks. Procedure Code(s): --- Professional --- 92739, 59, Small intestinal endoscopy, enteroscopy beyond second portion of duodenum, not including ileum; with control of bleeding (eg, injection, bipolar cautery, unipolar cautery, laser, heater probe, stapler, plasma personal care service provider) 36046, 51, Small intestinal endoscopy, enteroscopy beyond second portion of duodenum, not including ileum; with biopsy, single or multiple CPT copyright 2021 [employer]. All rights reserved. The codes documented in this report are preliminary and upon business attorney review may be revised to meet current compliance requirements. Chidi Rao DO 10/05/2025 12:56:04 PM This report has been signed electronically. Number of Addenda: 0 Note Initiated On: 10/05/2025 12:30 PM
--- NOTE | 2025-10-05 13:01 | PCM.POST.ANE ---
Anesthesia: Postop Eval I Current Vital Signs Temperature: 97.8 F Pulse Rate: 80 Blood Pressure: 120/52 Respiratory Rate: 16 Pulse Ox: 99 Oxygen Delivery Method: Room Air Assessment Airway patent: Yes Spontaneous unlabored respirations: Yes Mental status: Awake and Calm nausea: No Vomiting: No Anesthesia Complication: No Fluid Hydration Crystalloid volume administer (ml): 200 Total IV fluid infused: 200 Progress Note Anesthesia document: Postop Eval 1 completed: Yes
--- NOTE | 2025-10-05 13:48 | PCM.POSTANE2 ---
Anesthesia Postop Eval I Sum Postop Eval Completion status Anesthesia document: Postop Eval 1 completed: Yes Anesthesia Postop Eval I Summary Anesthesia Postop Eval I Summary: Anesthesia Postop Eval I: Assessment Summary Airway patent Yes 10/05/25 13:02 [email or web address] Spontaneous unlabored Yes 10/05/25 13:02 [email or web address] respirations Mental status Awake,Calm 10/05/25 13:02 [email or web address] nausea No 10/05/25 13:02 [email or web address] Vomiting No 10/05/25 13:02 [email or web address] Anesthesia Postop Eval I: Fluid Summary Crystalloid volume administer 200 10/05/25 13:02 [email or web address] (ml) Colloids volume administered ( ml) Blood Product volume administered (ml) Total IV fluid infused 200 10/05/25 13:02 [email or web address] Anesthesia Postop Eval I: Summary Notes Anesthesia Complication No 10/05/25 13:02 [email or web address] Anesthesia Complication Comment: Post-operative progress note Anesthesia: Postop Eval II Evaluation Mental status: Awake and Calm Pain Level: 1 nausea: No Vomiting: No Complications Anesthesia Complication: No
== END 2025-10-05 13:23 | disposition home or self-care (01) ==
LOC: EN 11:00 → AC 11:01
PROVIDERS: PCP Internal Medicine; Referring Provider Internal Medicine Gastroenterology; Visit Provider Internal Medicine Gastroenterology
PROC: 0DJ08ZZ Inspection of Upper Intestinal Tract, Via Natural or Artificial Opening Endoscopic (ICD-10-PCS; CPT 43235; principal; 2025-10-05 15:55)
DX: D50.9 Iron deficiency anemia, unspecified (principal); N18.4 Chronic kidney disease, stage 4 (severe); I13.0 Hypertensive heart and chronic kidney disease with heart failure and stage 1 through stage 4 chronic kidney disease, or unspecified chronic kidney disease; I50.30 Unspecified diastolic (congestive) heart failure; I48.0 Paroxysmal atrial fibrillation; E11.22 Type 2 diabetes mellitus with diabetic chronic kidney disease; Z79.4 Long term (current) use of insulin; M10.9 Gout, unspecified; K29.50 Unspecified chronic gastritis without bleeding; I25.10 Atherosclerotic heart disease of native coronary artery without angina pectoris; K26.9 Duodenal ulcer, unspecified as acute or chronic, without hemorrhage or perforation; Z87.891 Personal history of nicotine dependence; D62 Acute posthemorrhagic anemia; Z79.899 Other long term (current) drug therapy; D63.1 Anemia in chronic kidney disease; Z86.73 Personal history of transient ischemic attack (TIA), and cerebral infarction without residual deficits; I25.2 Old myocardial infarction; Z79.82 Long term (current) use of aspirin; Z90.49 Acquired absence of other specified parts of digestive tract; K22.2 Esophageal obstruction; K25.4 Chronic or unspecified gastric ulcer with hemorrhage; K31.89 Other diseases of stomach and duodenum
CPT/HCPCS: 44366; 44361; 82962; 88305; 88312; 88342; C1889; J2405